=== PATIENT | male | born 1975 | race Caucasian/White ===

== ENCOUNTER 2019-10-04 20:14 | Inpatient (IN) | payer MEDICARE, MEDICAID, SELFPAY ==
[2019-10-04] VITALS (10 sets, daily range): BP systolic 108–134; BP diastolic 73–84; PULSE 88–115; RESP 8–20; TEMP 36.1–36.8; O2SAT 97–100; BMI 22.1; BMI 23.8; BMI 23.9
--- NOTE | 2019-10-04 20:32 | EKG12_ITS ---
Test Reason : SOB Blood Pressure : / mmHG Vent. Rate : 103 BPM Atrial Rate : 103 BPM P-R Int : 142 ms QRS Dur : 078 ms QT Int : 346 ms P-R-T Axes : 064 -10 041 degrees QTc Int : 453 ms Sinus tachycardia Septal infarct , age undetermined Abnormal ECG Confirmed by KATARINA GUY, LIZETTE ([id number]), film or videotape editor TONYA PRCIE ([id number]) on 10/10/2019 11:19:16 AM Referred By: ELIEZER Confirmed By:JAMIL BRAY MD
--- NOTE | 2019-10-04 20:35 | RAD_ITS ---
STUDY: X-RAY CHEST REASON FOR EXAM: Male, 44 years old. PT C/O WEAKNESS, RUNNY NOSE, AND COUGH FOR SEVERAL DAYS TECHNIQUE: Frontal view COMPARISON: None. FINDINGS: The lungs are not fully expanded. There is no demonstrated pleural abnormality. Normal size heart. Normal mediastinum and aime. Normal visualized pulmonary arteries. Normal visualized aortic arch and descending thoracic aorta. Normal visualized thoracic spine. Normal visualized ribs, clavicles, and shoulders. There is no demonstrated abnormality of the visualized soft tissue structures of the upper abdomen. RAD/Chest 1 View (Portable) IMPRESSION: Normal x-ray examination of the chest. Electronically Signed: Brent Garcia DO at 20:54 EDT Tel [phone], Service support ,
--- NOTE | 2019-10-04 20:41 | ED.RN ---
NO OLD EKGS IN MUSE
[2019-10-04] MEDS: 0.9% Normal Saline 1,000 ML 999 ML IV ×2 (21:06→22:27)
[2019-10-04 21:32] LABS: ALB/GLOB Ratio 0.9 RATIO (0.9-2.4); AST(SGOT) 46 U/L (15-37); Absolute Neutrophil Count 6.8 X10^3/uL (2.0-7.7); Alanine Aminotransfer ALT/SGPT 102 U/L (16-61); Alkaline Phosphatase 127 U/L (45-117); Anion Gap 21 (5-15); BUN 19 mg/dL (7-18); BUN/Creat Ratio 18.1 RATIO (10-20); Basophil# 0.14 X10^3/uL; Basophil% 1.2 % (0-1); Calcium,Total 9.7 mg/dL (8.5-10.1); Chloride 91 mmol/L (98-107); Creatinine, Serum 1.05 mg/dL (0.70-1.30); EST Glomerular Filtration Rate 81 mL/min (>60); Eosinophil# 0.19 X10^3/uL; Eosinophils% 1.7 % (0-5); Est Glom Filt Rate - Afr Amer 98 mL/min (>60); Globulin 4.5 g/dL (2.2-4.2); Glucose 412 mg/dL (74-106); Hematocrit 45.5 % (40-54); Hemoglobin 14.5 g/dL (13.0-16.5); Lymphocyte % 30.2 % (19-41); Mean Corp Hgb Conc 31.9 g/dL (32-36); Mean Corpuscular Hgb 25.3 pg (27.0-32.0); Mean Corpuscular Volume 79.5 fL (80-94); Mean Platelet Vol. 11.6 fl (6.2-12.0); Monocyte# 0.68 X10^3/uL; NRBC Flagged by Analyzer 0 % (0-5); Neutrophil # 6.81 X10^3/uL (2.7-7.7); Neutrophil % 60.6 % (47-70); Platelet Count 250 K/mm3 (150-450); Protein, Total 8.5 g/dL (6.4-8.2); RBC Distribution Width CV 17.7 % (11.6-14.6); RBC Distribution Width SD 47.8 fl (35.1-43.9); Red Blood Count 5.72 M/mm3 (4.6-6.2); Sodium Level 129 mmol/L (136-145); White Blood Count 11.3 K/mm3 (4.4-11.0)
[2019-10-04 21:35] LABS: Partial Thromboplast Time 28.3 Seconds (24.1-36.2); Prothrombin Time (Protime)PT. 13.4 SECONDS (11.7-14.9)
[2019-10-04 21:38] LABS: Lactic Acid 1.4 mmol/L (0.4-1.9)
--- NOTE | 2019-10-04 22:05 | HP.PCM_ITS ---
Problem List (1) DKA (diabetic ketoacidoses) Status: Acute History of Present Illness Date of Admission: 10/04/19 Chief Complaint: weakness The patient is a 44 year old M with a significant history of DM; who presents with weakness. Also patient has runny nose; nonproductive cough and shortness of breath. He thinks that his shortness of breath is because of this DKA. He was discharged from the senior living on September 14, 2019. Further he has mult iple social complaints. Reportedly he left the senior living because he was going to be evicted soon because of financial issues. He reported that because of some social issues he has not received his left leg prosthesis. He reported that he is unable to eat because he is lacking his dentures. He reports phantom pain in his left leg and neuropathic pain. After he left the senior living he went to live with a friend. He has not been able to take his short acting insulin. In regard to his long acting insulin, he reportedly he got the wrong syringe range from the pharmacy and as such he is unsure whether he is able to get the dose required. At emergency department patient was found to have elevated ketones; hyperglycemia and anion gap metabolic acidosis. Past Medical History Medical History: Medical History (Last Reviewed 10/04/19 @ 23:[address] Spencer Harman MD) Diabetes mellitus E11.9 Allergies No Known Allergies Allergy (Verified 10/04/19 20:15) Home Medications: Ambulatory Orders Medication Instructions Recorded Insulin NPH Human Isophane 20 unit SQ BID 10/04/19 [Novolin N] Lisinopril [Zestril] 10 mg PO DAILY 10/04/19 Pantoprazole Sodium [Protonix] 20 mg PO DAILY 10/04/19 Surgical History: - - Left below the knee amputation Lives: Roommate Smoking Status: Current every day smoker Tobacco Use: Cigarettes - *Family History Maternal History Items: Diabetes, Heart Disease, Pulmonary Disease Paternal History Items: Cancer - Pancreatic Review of Systems Constitutional: Denies: Chills, Fever, Weight Change HEENT: Reports: Sinus Drainage. Denies: Head Aches, Sinus Congestion Cardiovascular: Denies: Chest Pain, Palpitations Respiratory: Reports: Cough. Denies: Shortness of breath at rest, Sputum production Gastrointestinal: Denies: Abdominal Pain, Nausea, Vomiting Genitourinary: Denies: Dysuria Musculoskeletal: Denies: Joint Pain, Joint Tenderness Skin: Denies: Rash, Wounds Neurological: Reports: Tingling. Denies: Focal weakness, Numbness Psychiatric: Denies: Anxiety, Depression, Homicidal Ideations, Suicidal Ideations Hematologic/ Lymphatic: Denies: Easy Bruising, Easy Bleeding VTE Information - Inpt Only VTE Present on Admission: No VTE Mechan Device Prophylaxis: None VTE Pharm Prophylaxis ordered?: Yes Patient Problems: Active and Suspected Problems (Last Reviewed 10/04/19 @ 23:[address] Spencer Harman MD) DKA (diabetic ketoacidoses) (Acute) - Physical Exam Vitals/I&O's: Vital Signs Temp Pulse Resp BP Pulse Ox 97.5 F L 91 19 H 121/77 H 100 10/04/19 21:20 10/04/19 21:20 10/04/19 21:20 10/04/19 21:20 10/04/19 21:21 Oxygen Delivery Method Room Air Weight: 68.039 kg Body Mass Index (BMI) 22.1 General: Alert, Oriented x3, Cooperative HEENT: Atraumatic, PERRLA, EOMI, Normocephalic Neck: Supple, No JVD, Negative Carotid Bruits Lungs: Clear to auscultation, Normal air movement Cardiovascular: Regular rate, No murmurs Abdomen: Bowel Sounds Present, Soft, Non Tender Extremities: No edema, Capillary Refill Less than 3 Seconds, - - Left below the knee amputation. Deformity of right leg Skin: No rashes, No breakdown Musculoskeletal: No Tenderness to Palpation of Joints or Extremities Neurological: Cranial nerves II-XII grossly intact Psych/Mental Status: Normal Affect, Appropriate Microbiology Past 72 Hours 10/04/19 20:50 Mucosa - Nasopharyngeal Influenza Types A,B Direct FA (LONNY) - Final Laboratory Results 10/04/19 21:00: WBC 11.3 H, RBC 5.72, Hgb 14.5, Hct 45.5, MCV 79.5 L, MCH 25.3 L , MCHC 31.9 L, RDW Std Deviation 47.8 H, RDW Coeff of Candace 17.7 H, Plt Count 250, MPV 11.6, Immature Gran % (Auto) 0.300, Neut % (Auto) 60.6, Lymph % (Auto) 30.2, [place] % (Auto) 6.0, Eos % (Auto) 1.7, Baso % (Auto) 1.2 H, Absolute Neuts (auto) 6.8, Absolute Lymphs (auto) 3.40, Nucleated RBC % 0 10/04/19 21:00: PT 13.4, INR 1.0, APTT 28.3 10/04/19 21:00: Sodium 129 L, Potassium 5.0, Chloride 91 L, Carbon Dioxide 17.0 L, Anion Gap 21 H, BUN 19 H, Creatinine 1.05, Estim Creat Clear Calc 85.50, Est GFR (MDRD) Af Amer 98, Est GFR (MDRD) Non-Af 81, BUN/Creatinine Ratio 18.1, Glucose 412 H, Calcium 9.7, Total Bilirubin 0.40, AST 46 H, ALT 102 H, Alkaline Phosphatase 127 H, Troponin I < 0.015, Total Protein 8.5 H, Albumin 4.0, Globulin 4.5 H, Albumin/Globulin Ratio 0.9 10/04/19 21:00: Acetone Level SMALL H 10/04/19 21:00: Lactic Acid 1.4 Current Medications Insulin Human Lispro 100 unit/ (Sodium Chloride) 100 mls @ 6.804 mls/hr IV .[id number] PEPITO; Protocol Sodium Chloride () 1,000 mls @ 999 mls/hr IV .Q1H1M ONE Stop: 10/04/19 22:59 Assessment/Plan All Active Problems (Last Reviewed 10/04/19 @ 23:[address] Spencer Harman MD) DKA (diabetic ketoacidoses) (Acute) The patient is a 44 year old M with a significant history of DM; who presents with weakness; upper respiratory infection symptoms and was found to be in DKA; and also with many social complaints consistent with adult failure to thrive. DKA His DKA could be secondary to insufficient insulin to meet his metabolic demands;, stress, or other. Serum glucose of 412. acetone level: Small Anion gap of 21 Sodium 129 on presentation, . Corrected sodium 134 Insulin drip started from emergency department; continue Completed IV bolus of normal saline and normal saline infusion Because of potassium 5.0 of we will start patient on-normal saline with 20 mEq of potassium. BMP every 4 hours to calculate anion gap. N.p.o. for now Admitted to ICU A1c ordered Zofran as needed. Technical Solutions Director consult. Upper URI symptoms Patient has no fever. Chest x-ray is unremarkable. Rapid influenza screen at the emergency department was negative. Flonase ordered. Per patient his cough is not bothersome to him so no cough suppressant to be ordered at this time. Adult failure to thrive Case management consult for possible placement; and to help with other social issues.. DVT prophylaxis Lovenox ordered. Inpatient E&M: 95282 Init Hosp L3
[2019-10-04 22:07] LABS: Bacteria 0 SEEN /hpf (None Seen); Mucous, Urine 0 SEEN /hpf (<or=2+); Red Blood Cells-Urine 0 SEEN /hpf (0-5); Squamous Epithelial Cells - UA 0 SEEN /hpf (0-5); White Blood Cells 0 SEEN /hpf (0-5)
--- NOTE | 2019-10-04 22:07 | ED.DCSUM_ITS ---
- ER Visit Summary Date of Service: 10/04/19 Chief Complaint: Weakness History of Present Illness: The patient is a 44 M with history of diabetes, gastroparesis, neuropathy, and Charcot foot. He had an amputation of his left leg and was recently discharged from rehab earlier this month. He has not been doing well at home. He presents for generalized weakness. He also has a cough, shortness of breath, and runny nose. Denies any fevers, travel, or contact with anyone with coronavirus. Patient is here because he is concerned he may be in DKA. He received the wrong supplies from the pharmacy and has been unable to check his blood sugars. He thinks he will need to be placed back in a care home. Physical Examination: Afebrile and vital signs unremarkable except for heart rate of 115. Patient in no acute distress. Heart tachycardic. No respiratory distress. Skin appears normal. He has a left leg amputation. Test Results: EKG shows sinus rhythm at a rate of 103. Chest x-ray normal. White count 11.3. Sodium 129, CO2 17, anion gap 21, glucose 412, BUN 19, small ketones. Lactate normal. Troponin normal. Liver enzymes slightly elevated. Urinalysis pending. Influenza test negative. Respiratory panel pending. Blood cultures pending. Emergency Department Course and Treatment: Patient presents with upper respiratory symptoms and recent care home stay. He is not having fevers and does not have any other risk factors for coronavirus, however contact and droplet precautions were maintained. Respiratory panel is pending. Labs indicated DKA. He was started on insulin. He also received IV fluids. Patient has no evidence of sepsis. It sounds like his DKA is secondary to nonadherence with his treatment regimen. He is having difficulties at home. He can barely walk. He relies on his neighbor to help him. I believe he may also need placement in a nursing or rehab facility. I contacted the hospitalist for admission for DKA. Treatment Plan: As above Disposition: Admission Impression: DKA URI This note was generated with [employer] dictation software. It may contain incorrect words, spelling, and punctuation that were not noted in review of the chart prior to signing ED Disposition - Plan for ED Patient: Referrals: Shayna Winkler [Primary Care Provider] -
[2019-10-04 22:09] LABS: Color, Urine Yellow (Yellow); Glucose, Dipstick 1000 mg/dl (Normal); Leukocyte Esterase-Dipstick Negative /ul (Negative); Nitrite-Dipstick Negative (Negative); Occult Blood-Urine Negative /ul (Negative); Protein-Dipstick Negative (Negative); Urine Bilirubin Dipstick Negative (Negative); Urine Clarity Sl. Cloudy (Clear); Urine Urobilinogen Normal (Normal)
[2019-10-04 22:27] LABS: Ketone-Dipstick 150 mg/dl (Negative)
[2019-10-04 23:31] LABS: Bedside Glucose 317 mg/dL (70-110)
[2019-10-05] VITALS (23 sets, daily range): BP systolic 94–152; BP diastolic 61–98; PULSE 73–104; RESP 12–25; TEMP 36.2–37.4; O2SAT 95–100
[2019-10-05 00:01] LABS: Bedside Glucose 269 mg/dL (70-110)
[2019-10-05 00:30] LABS: Bedside Glucose 230 mg/dL (70-110)
[2019-10-05] MEDS: Acetaminophen 325 MG Tablet 650 MG PO (00:57)
[2019-10-05 01:40] LABS: Anion Gap 9 (5-15); BUN 18 mg/dL (7-18); BUN/Creat Ratio 20.7 RATIO (10-20); Calcium,Total 8.5 mg/dL (8.5-10.1); Chloride 102 mmol/L (98-107); Creatinine, Serum 0.87 mg/dL (0.70-1.30); EST Glomerular Filtration Rate 101 mL/min (>60); Est Glom Filt Rate - Afr Amer 122 mL/min (>60); Estimated Creatinine Clearance 107.22 ml/min; Glucose 171 mg/dL (74-106); Potassium 3.7 mmol/L (3.5-5.1); Sodium Level 137 mmol/L (136-145)
[2019-10-05 02:41] LABS: Bedside Glucose 110 mg/dL (70-110)
[2019-10-05] MEDS: Fleet Enema 1 ML RECTAL (03:20)
[2019-10-05 05:20] LABS: Absolute Lymphocyte Count 2.38 X10^3/uL (0.83-4.51); Absolute Neutrophil Count 3.8 X10^3/uL (2.0-7.7); Basophil# 0.08 X10^3/uL; Basophil% 1.1 % (0-1); Eosinophil# 0.23 X10^3/uL; Eosinophils% 3.2 % (0-5); Hematocrit 38.4 % (40-54); Hemoglobin 12.5 g/dL (13.0-16.5); Lymphocyte # 2.38 X10^3/ul (4.0); Lymphocyte % 32.9 % (19-41); Mean Corp Hgb Conc 32.6 g/dL (32-36); Mean Corpuscular Hgb 25.2 pg (27.0-32.0); Mean Corpuscular Volume 77.4 fL (80-94); Mean Platelet Vol. 11.1 fl (6.2-12.0); Monocyte% 9.7 % (0-10); NRBC Flagged by Analyzer 0 % (0-5); Neutrophil # 3.82 X10^3/uL (2.7-7.7); Neutrophil % 52.8 % (47-70); Platelet Count 237 K/mm3 (150-450); RBC Distribution Width CV 16.7 % (11.6-14.6); Red Blood Count 4.96 M/mm3 (4.6-6.2); White Blood Count 7.2 K/mm3 (4.4-11.0)
[2019-10-05 05:28] LABS: Anion Gap 7 (5-15); BUN 18 mg/dL (7-18); BUN/Creat Ratio 23.7 RATIO (10-20); Calcium,Total 8.3 mg/dL (8.5-10.1); Chloride 100 mmol/L (98-107); Creatinine, Serum 0.76 mg/dL (0.70-1.30); EST Glomerular Filtration Rate 118 mL/min (>60); Est Glom Filt Rate - Afr Amer 142 mL/min (>60); Estimated Creatinine Clearance 122.74 ml/min; Glucose 265 mg/dL (74-106); Potassium 4.4 mmol/L (3.5-5.1); Sodium Level 131 mmol/L (136-145)
[2019-10-05 06:45] LABS: Bedside Glucose 283 mg/dL (70-110)
[2019-10-05 07:50] LABS: Hemoglobin A1c 12.3 % (4.2-6.3)
--- NOTE | 2019-10-05 08:03 | PCM.PN.HOSP ---
Patient Problems: Active and Suspected Problems (Last Reviewed 10/04/19 @ 23:[address] Spencer Harman MD) DKA (diabetic ketoacidoses) (Acute) Reason for Visit: Follow-up on acute DKA Subjective: Patient was seen and examined. He denied any new complaints except for burning sensation in the fingertips as well as back pain. Denies any fever or chills or dizziness or palpitation. Objective: Physical exam: General: Alert, Oriented x3, Cooperative HEENT: Atraumatic, PERRLA, EOMI, Normocephalic Neck: Supple, No JVD, Negative Carotid Bruits Lungs: Clear to auscultation, Normal air movement Cardiovascular: Regular rate, No murmurs Abdomen: Bowel Sounds Present, Soft, Non Tender Extremities: No edema, Capillary Refill Less than 3 Seconds, - - Left below the knee amputation. Deformity of right leg Skin: No rashes, No breakdown Musculoskeletal: No Tenderness to Palpation of Joints or Extremities Neurological: Cranial nerves II-XII grossly intact Psych/Mental Status: Normal Affect, Appropriate Vitals/I&O's: Vital Signs Temp Pulse Resp BP Pulse Ox 98.5 F 73 20 H 112/71 98 10/05/19 05:00 10/05/19 07:43 10/05/19 06:00 10/05/19 06:00 10/05/19 06:00 Oxygen Delivery Method Room Air Weight: 73.6 kg Body Mass Index (BMI) 23.8 Finger Stick Blood Glucose 110 Intake and Output for Last 24 Hours 10/03/19 10/04/19 10/05/19 23:59 23:59 23:59 Intake Total 1007.59 / 1007.59 1501.25 / 1501.25 Balance 1007.59 / 1007.59 1501.25 / 1501.25 Microbiology Past 72 Hours 10/04/19 20:50 Mucosa - Nasopharyngeal Influenza Types A,B Direct FA (LONNY) - Final Laboratory Results 10/04/19 21:00: WBC 11.3 H, RBC 5.72, Hgb 14.5, Hct 45.5, MCV 79.5 L, MCH 25.3 L, MCHC 31.9 L, RDW Std Deviation 47.8 H, RDW Coeff of Candace 17.7 H, Plt Count 250, MPV 11.6, Immature Gran % (Auto) 0.300, Neut % (Auto) 60.6, Lymph % (Auto) 30.2, [place] % (Auto) 6.0, Eos % (Auto) 1.7, Baso % (Auto) 1.2 H, Absolute Neuts (auto) 6.8, Absolute Lymphs (auto) 3.40, Nucleated RBC % 0 10/04/19 21:00: PT 13.4, INR 1.0, APTT 28.3 10/04/19 21:00: Sodium 129 L, Potassium 5.0, Chloride 91 L, Carbon Dioxide 17.0 L, Anion Gap 21 H, BUN 19 H, Creatinine 1.05, Estim Creat Clear Calc 85.50, Est GFR (MDRD) Af Amer 98, Est GFR (MDRD) Non-Af 81, BUN/Creatinine Ratio 18.1, Glucose 412 H, Calcium 9.7, Total Bilirubin 0.40, AST 46 H, ALT 102 H, Alkaline Phosphatase 127 H, Troponin I < 0.015, Total Protein 8.5 H, Albumin 4.0, Globulin 4.5 H, Albumin/Globulin Ratio 0.9 10/04/19 21:00: Acetone Level SMALL H 10/04/19 21:00: Lactic Acid 1.4 10/04/19 22:00: Urine Color Yellow, Urine Clarity Sl. Cloudy, Urine pH 5.0, Ur Specific [place] 1.020, Urine Protein Negative, Urine Glucose (UA) 1000 H, Urine Ketones 150 H, Urine Occult Blood Negative, Urine Nitrite Negative, Urine Bilirubin Negative, Urine Urobilinogen Normal, Ur Leukocyte Esterase Negative, Urine RBC 0 SEEN, Urine WBC 0 SEEN, Ur Squamous Epith Cells 0 SEEN, Urine Bacteria 0 SEEN, Urine Mucus 0 SEEN 10/04/19 22:19: POC Glucose 317 H 10/04/19 23:28: POC Glucose 269 H 10/05/19 00:26: POC Glucose 230 H 10/05/19 01:00: Sodium 137, Potassium 3.7, Chloride 102, Carbon Dioxide 26.0, Anion Gap 9, BUN 18, Creatinine 0.87, Estim Creat Clear Calc 107.22, Est GFR (MDRD) Af Amer 122, Est GFR (MDRD) Non-Af 101, BUN/Creatinine Ratio 20.7 H, Glucose 171 H, Calcium 8.5 10/05/19 02:30: POC Glucose 110 10/05/19 05:05: WBC 7.2, RBC 4.96, Hgb 12.5 L, Hct 38.4 L, MCV 77.4 L, MCH 25.2 L, MCHC 32.6, RDW Std Deviation 47.0 H, RDW Coeff of Candace 16.7 H, Plt Count 237, MPV 11.1, Immature Gran % (Auto) 0.300, Neut % (Auto) 52.8, Lymph % (Auto) 32.9, [place] % (Auto) 9.7, Eos % (Auto) 3.2, Baso % (Auto) 1.1 H, Absolute Neuts (auto) 3.8, Absolute Lymphs (auto) 2.38, Nucleated RBC % 0 10/05/19 05:05: Hemoglobin A1c 12.3 H 10/05/19 05:05: Sodium 131 L, Potassium 4.4, Chloride 100, Carbon Dioxide 24.0, Anion Gap 7, BUN 18, Creatinine 0.76, Estim Creat Clear Calc 122.74, Est GFR (MDRD) Af Amer 142, Est GFR (MDRD) Non-Af 118, BUN/Creatinine Ratio 23.7 H, Glucose 265 H, Calcium 8.3 L 10/05/19 06:35: POC Glucose 283 H Current Medications Acetaminophen (Tylenol) 650 mg PO Q6H PRN PRN PRN Reason: Pain Score 1-10/10 Last Admin: 10/05/19 00:57 Dose: 650 mg Documented by: Enoxaparin Sodium (Lovenox) 40 mg SC DAILY [facility] Fluticasone Propionate (Flonase Nasal Sprague) 2 spray NASAL DAILY [facility] Glucagon () 1 mg IM .X1 PRN PRN Reason: Hypoglycemia Hydralazine HCl (Apresoline Iv) 5 mg IV Q4H PRN PRN PRN Reason: SBP > 160 or DBP > 120 Pantoprazole Sodium 40 mg/ (Sodium Chloride) 110 mls @ 330 mls/hr IV Q24 PEPITO Dextrose (Dextrose 10%-Water) 250 mls @ 999 mls/hr IV .Q16M PRN; Protocol PRN Reason: HYPOGLYCEMIA Sodium Chloride () 250 mls @ 15 mls/hr IV .[id number] PRN PRN Reason: Saline Flush Sodium Chloride () 250 mls @ 15 mls/hr IV .[id number] PRN PRN Reason: Additional IVPB Infusion Insulin Glargine (Lantus (Bkc)) 10 units SC BID PEPITO Insulin Human Lispro (Humalog Kwikpen (Bkc)) 0 unit SC ACHS PEPITO; Protocol Insulin Human Lispro (Humalog Kwikpen (Bkc)) 4 unit SC TIDAC EPPITO Ondansetron HCl (Zofran) 4 mg IV Q8H PRN PRN PRN Reason: NAUSEA/VOMITING Sodium Chloride () 10 - 40 ml IV UD PRN PRN Reason: SALINE FLUSH STROKE Vital Signs/Narrative: Vital Signs Temp Pulse Resp BP Pulse Ox 10/05/19 07:43 73 10/05/19 06:00 75 20 H 112/71 98 10/05/19 05:00 98.5 F 89 22 H 94/70 95 Medical Necessity - Tobacco Use Smoking Status: Current every day smoker Tobacco Use: Cigarettes Assessment/Plan All Active Problems (Last Reviewed 10/04/19 @ 23:[address] Spencer Harman MD) DKA (diabetic ketoacidoses) (Acute) 1. Acute DKA, resolved BS are uncontrolled, Hgb A1c 12.3, restarted on Lantus; will switch to NPH as patient had that at home Will continue with premeal Lispro 4units TID with the ISS 2. Upper respiratory symptoms, unremarkable chest x-ray chest x-ray, not on oxygen We will continue to monitor 3. Debility, lots of social issues Case management consulted 4. Hypertension, controlled, continue lisinopril 5. DVT prophylaxis with Lovenox subcu Inpatient E&M: [id number] Subs Hosp L2
[2019-10-05 08:42] LABS: AST(SGOT) 40 U/L (15-37); Alanine Aminotransfer ALT/SGPT 76 U/L (16-61); Alkaline Phosphatase 91 U/L (45-117); Globulin 3.3 g/dL (2.2-4.2); Protein, Total 6.3 g/dL (6.4-8.2)
[2019-10-05] MEDS: Insulin Lispro 100 UNIT/ML INSULN.PEN SC ×7 (09:21→21:04)
[2019-10-05] MEDS: Fluticasone 0.05% 1 SPRAY NASAL.SRY 2 SPRAY NASAL (09:21)
[2019-10-05] MEDS: Enoxaparin 40 MG/0.4 ML Syringe SC (09:23)
[2019-10-05] MEDS: 0.9% Saline Lock 10 ML Syringe IV (09:49)
--- NOTE | 2019-10-05 11:50 | CASEMGMT ---
SW spoke w/pt at length in room in regard to prior level of function and discharge plan. SW provided list of nursing homes with star ratings that pt's insurance. At this time, pt would like referral sent to 1. [facility], 2. [facility], or 3. [facility]. Pt would like to go to SNF that allows smoking. SW called [facility], they do allow smoking, [facility] does not, and [facility] does. SW spoke w/pt again, he would like a referral sent to [facility]. SW will send referral after PT/OT evaluations completed. NOAH Pope
--- NOTE | 2019-10-05 13:07 | CASEMGMT ---
Addendum entered by Hannah Cisneros 10/05/19 14:22: SW called [facility], referral did not come through. SW refaxed, will continue to follow. NOAH Pope Original Note: SW met w/pt in room in regard to prior level of function, discharge plan. PCP: Dr. Shayna Winkler Specialists: Dr. Burkett, endocrinology in [place], Dr. Byrnes, orthopedic surgeon at [facility] Insurance/Prescription coverage: [facility] Medicare, Medicaid Preferred Pharmacy: In the past had been [facility] in [place]: Father, Aunt, children ages 17 and 14, brother Current living situation: Pt staying w/friend Yoana, has a bed set up in his dining room LW/POA: Pt has not completed these documents, is not certain who he would put down at this time. SW asked if he would like SW to add anyone to demographics, he declined. SW explained the order of decision makers in the event he could not make decisions for himself. Pt states his son will be 18 in October and is okay with son being decision maker should it be needed. Pt is . Prior level of function/DME/SNF/home care: Pt has been staying w/friend since left [facility] [place] last month. Pt states the [facility] gave him a used walker and wheelchair, one of the wheels on the wheelchair is broken. He thinks these were given to him and not billed to insurance. Pt has a meter and strips, but has the incorrect strips. Pt has his insulin but has the wrong needles. Pt is to be getting a prosthesis from [employer] for his Below Knee Amputation, however there has been much confusion regarding whether or not insurance will cover this, he has been in touch with [employer] in regard to this. Friend is willing to take pt in again, however pt feels that he needs to be moving better. Eventually pt would like to find his own apartment. Mental Health: Pt states in the past has been suicidal, but not any time recently. Pt denies wanting to harm himself, kill himself. Pt denies having any active plan or idea on how he would commit suicide. Pt does feel down and is having a difficult time with all that has happened over the last few months. Pt does see a counselor at [facility] named Emily who he feels is very helpful. 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 Pt states has not used in years. Pt state she does use marijuana to help w/pain, and smokes cigarettes. Pt states was on Suboxone when at the [facility] for pain, but this required him to go to classes twice per week and he did not want to do this, so stopped using Suboxone. Other Stressors: Pt states his aunt and father kicked him out when he had his leg amputated, he had been living in a duplex in the basement of his father's place, and his aunt was next door. He went to [facility] and said he was evicted from there. He was to go to [facility] after that but instead his friend Yoana took him in. Pt states he got a bill from the [facility] also and does not understand why. SW offered to call the [facility] to get a better understanding for him, pt declined, stating his hotel maintenance engineer will do it. Pt explains is hiring a hotel maintenance engineer to help him look into where and how he got the infection in the first place(related to the leg amputation). Pt is having a tough time managing for himself and his friend, while helpful, is limited in what he can do for pt. Pt also explained that he has been having a tough time getting his prostheses authorized. He went to his computer systems auditor this week and did not get all the correct supplies to manage his diabetes. Also, his wheelchair wheel is broken. Pt expressed frustration with much of his current situation. Supportive listening given. SW spoke w/pt about discharge plan, SNF list with star ratings that take pt's insurance provided. Pt would like to go where he can smoke, first three choices are 1. [facility], 2. [facility], and 3. [facility]. SW explained will call and see who allows smoking and check back w/him. SW called the 3 facilities, [facility] and [facility] allow smoking. BASILIO spoke again w/pt, he would like a referral sent to [facility]. SW faxed referral, will await call back. Plan: SNF, referral sent to [facility], will await call back. If [facility] can take pt, they will start precert. BASILIO will continue to follow. NOAH Pope
--- NOTE | 2019-10-05 14:51 | CHAPLAIN ---
Type of Pastoral Visit _x__ Initial Visit ___ Follow-up Visit ___ On-call Visit ___ General Patient Visit ___ Spiritual Assessment ___ Family Conference ___ Bereavement ___ Rapid Response ___ Code Blue ___ Other (describe below) Pastoral Care Referral From _x__ Patient ___ Family ___ Nurse ___ Physician ___ Sap Mobility Architect ___ Cigar Making Machine Operator ___ Other (describe below) Sacrament/Intervention _x__ Active listening ___ Anointing ___ Hoahaoism ___ Bereavement ___ Communion _x__ Leatha exploration ___ _x__ Life review _x__ Prayer ___ Reconciliation ___ Sacrament of Sick _x__ Supportive presence ___ Wedding ___ Other (describe below) Pastoral Comments
[2019-10-05 16:40] LABS: Bedside Glucose 375 mg/dL (70-110)
[2019-10-05] MEDS: Gabapentin 300 MG Capsule PO (17:13)
[2019-10-05] MEDS: Insulin NPH Human 100 UNITS/ML PEN 20 UNITS SC (17:40)
[2019-10-05] MEDS: Polyethylene Glycol 3350 17 GM PACKET PO (18:07)
[2019-10-05 21:26] LABS: Bedside Glucose 345 mg/dL (70-110)
[2019-10-05 21:35] LABS: Bedside Glucose 306 mg/dL (70-110)
[2019-10-06 03:00] VITALS: BP 109/67; PULSE 70; RESP 18; TEMP 36.6; O2SAT 99
[2019-10-06 03:07] VITALS: PULSE 75
[2019-10-06 07:00] VITALS: PULSE 83
[2019-10-06 07:01] LABS: Bedside Glucose 294 mg/dL (70-110)
[2019-10-06 07:17] LABS: Absolute Neutrophil Count 3.1 X10^3/uL (2.0-7.7); Basophil# 0.07 X10^3/uL; Basophil% 1.2 % (0-1); Eosinophil# 0.18 X10^3/uL; Hematocrit 42.4 % (40-54); Hemoglobin 13.8 g/dL (13.0-16.5); Lymphocyte % 35.4 % (19-41); Mean Corp Hgb Conc 32.5 g/dL (32-36); Mean Corpuscular Hgb 25.4 pg (27.0-32.0); Mean Corpuscular Volume 78.1 fL (80-94); Mean Platelet Vol. 10.3 fl (6.2-12.0); Monocyte# 0.48 X10^3/uL; Monocyte% 8.1 % (0-10); NRBC Flagged by Analyzer 0 % (0-5); Neutrophil # 3.08 X10^3/uL (2.7-7.7); Platelet Count 228 K/mm3 (150-450); RBC Distribution Width CV 17.8 % (11.6-14.6); RBC Distribution Width SD 47.1 fl (35.1-43.9); Red Blood Count 5.43 M/mm3 (4.6-6.2); White Blood Count 5.9 K/mm3 (4.4-11.0)
[2019-10-06 07:35] LABS: ALB/GLOB Ratio 0.8 RATIO (0.9-2.4); AST(SGOT) 55 U/L (15-37); Alanine Aminotransfer ALT/SGPT 86 U/L (16-61); Albumin, Serum 3.2 g/dL (3.2-5.0); Alkaline Phosphatase 97 U/L (45-117); Anion Gap 3 (5-15); BUN 13 mg/dL (7-18); BUN/Creat Ratio 17.5 RATIO (10-20); Calcium,Total 8.7 mg/dL (8.5-10.1); Chloride 100 mmol/L (98-107); Creatinine, Serum 0.74 mg/dL (0.70-1.30); EST Glomerular Filtration Rate 121 mL/min (>60); Est Glom Filt Rate - Afr Amer 146 mL/min (>60); Estimated Creatinine Clearance 126.06 ml/min; Globulin 3.9 g/dL (2.2-4.2); Glucose 299 mg/dL (74-106); Potassium 4.5 mmol/L (3.5-5.1); Protein, Total 7.1 g/dL (6.4-8.2); Sodium Level 131 mmol/L (136-145)
[2019-10-06] MEDS: Insulin Lispro 100 UNIT/ML INSULN.PEN SC ×7 (08:21→22:51)
[2019-10-06] MEDS: Insulin NPH Human 100 UNITS/ML PEN 20 UNITS SC (08:22)
[2019-10-06 08:28] VITALS: BP 116/82; PULSE 96; RESP 16; TEMP 37; O2SAT 98
[2019-10-06] MEDS: Polyethylene Glycol 3350 17 GM PACKET PO (08:35)
[2019-10-06] MEDS: Enoxaparin 40 MG/0.4 ML Syringe SC (08:36)
[2019-10-06] MEDS: Fluticasone 0.05% 1 SPRAY NASAL.SRY 2 SPRAY NASAL (08:36)
[2019-10-06] MEDS: Lisinopril 10 MG Tablet PO (08:36)
[2019-10-06] MEDS: Pantoprazole Sodium 20 MG Tablet PO (08:36)
[2019-10-06] MEDS: Gabapentin 300 MG Capsule PO ×2 (08:36→17:03)
[2019-10-06] MEDS: Glucerna Shake 120 ML LIQUID PO ×2 (08:37→11:51)
[2019-10-06 11:35] LABS: Bedside Glucose 491 mg/dL (70-110)
[2019-10-06 12:31] LABS: Bedside Glucose 438 mg/dL (70-110)
--- NOTE | 2019-10-06 13:00 | PN_ITS ---
<Andrew Joshi - Last Filed: 10/06/19 13:05> Patient Problems: Active and Suspected Problems (Last Reviewed 10/04/19 @ 23:[address] Spencer Harman MD) DKA (diabetic ketoacidoses) (Acute) Reason for Visit: DKA, SOB Subjective: Ongoing upper and lower extremity neuropathy, phantom pain left lower extremity. No shortness of breath at all today. No chest pain, lightheadedness, dizziness. Appetite is intact. No nausea or vomiting. Blood sugars are still uncontrolled. Vitals/I&O's: Vital Signs Temp Pulse Resp BP Pulse Ox 98.6 F 96 16 116/82 H 98 10/06/19 08:28 10/06/19 08:28 10/06/19 08:28 10/06/19 08:28 10/06/19 08:28 Oxygen Delivery Method Room Air Weight: 162 lb 4.163 oz Body Mass Index (BMI) 23.8 Finger Stick Blood Glucose 110 Intake and Output for Last 24 Hours 10/04/19 10/05/19 10/06/19 23:59 23:59 23:59 Intake Total 1007.59 / 1007.59 3251.25 / 3851.25 660 / 660 Balance 1007.59 / 1007.59 3251.25 / 3851.25 660 / 660 General: Alert, Oriented x3, Cooperative HEENT: Atraumatic, PERRLA, EOMI, Normocephalic Neck: Supple, No JVD, Negative Carotid Bruits Lungs: Clear to auscultation, Normal air movement Cardiovascular: Regular rate, No murmurs Abdomen: Bowel Sounds Present, Soft, Non Tender Extremities: No edema, Capillary Refill Less than 3 Seconds Skin: No rashes, No breakdown Musculoskeletal: No Tenderness to Palpation of Joints or Extremities Neurological: Cranial nerves II-XII grossly intact Psych/Mental Status: Normal Affect, Appropriate, Alert and oriented to time, place, person, mood and affect Microbiology Past 72 Hours 10/04/19 22:00 Urine, Clean Catch Urine Culture - Preliminary Culture exhibits no growth. 10/04/19 20:50 Mucosa - Nasopharyngeal Influenza Types A,B Direct FA (LONNY) - Final Laboratory Results 10/05/19 12:36: POC Glucose 306 H 10/05/19 16:22: POC Glucose 375 H 10/05/19 20:47: POC Glucose 345 H 10/06/19 06:53: POC Glucose 294 H 10/06/19 07:05: WBC 5.9, RBC 5.43, Hgb 13.8, Hct 42.4, MCV 78.1 L, MCH 25.4 L, MCHC 32.5, RDW Std Deviation 47.1 H, RDW Coeff of Candace 17.8 H, Plt Count 228, MPV 10.3, Immature Gran % (Auto) 0.300, Neut % (Auto) 52.0, Lymph % (Auto) 35.4, [place] % (Auto) 8.1, Eos % (Auto) 3.0, Baso % (Auto) 1.2 H, Absolute Neuts (auto) 3.1, Absolute Lymphs (auto) 2.10, Nucleated RBC % 0 10/06/19 07:05: Sodium 131 L, Potassium 4.5, Chloride 100, Carbon Dioxide 28.0, Anion Gap 3 L, BUN 13, Creatinine 0.74, Estim Creat Clear Calc 126.06, Est GFR (MDRD) Af Amer 146, Est GFR (MDRD) Non-Af 121, BUN/Creatinine Ratio 17.5, Glucose 299 H, Calcium 8.7, Total Bilirubin 0.40, AST 55 H, ALT 86 H, Alkaline Phosphatase 97, Total Protein 7.1, Albumin 3.2, Globulin 3.9, Albumin/Globulin Ratio 0.8 L 10/06/19 11:28: POC Glucose 491 H* 10/06/19 12:26: POC Glucose 438 H Current Medications Acetaminophen (Tylenol) 650 mg PO Q6H PRN PRN PRN Reason: Pain Score 1-10/10 Last Admin: 10/05/19 00:57 Dose: 650 mg Documented by: Enoxaparin Sodium (Lovenox) 40 mg SC DAILY [facility] Last Admin: 10/06/19 08:36 Dose: 40 mg Documented by: Fluticasone Propionate (Flonase Nasal [place]) 2 spray NASAL DAILY [facility] Last Admin: 10/06/19 08:36 Dose: 2 spray Documented by: Gabapentin (Neurontin) 300 mg PO BIDCM [facility] Last Admin: 10/06/19 08:36 Dose: 300 mg Documented by: Glucagon () 1 mg IM .X1 PRN PRN Reason: Hypoglycemia Hydralazine HCl (Apresoline Iv) 5 mg IV Q4H PRN PRN PRN Reason: SBP > 160 or DBP > 120 Dextrose (Dextrose 10%-Water) 250 mls @ 999 mls/hr IV .Q16M PRN; Protocol PRN Reason: HYPOGLYCEMIA Sodium Chloride () 250 mls @ 15 mls/hr IV .[id number] PRN PRN Reason: Saline Flush Sodium Chloride () 250 mls @ 15 mls/hr IV .[id number] PRN PRN Reason: Additional IVPB Infusion Insulin Human Lispro (Humalog Kwikpen (Bk)) 0 unit SC ACHS [facility]; Protocol Last Admin: 10/06/19 12:35 Dose: 11 u Documented by: Insulin Human Lispro (Humalog Kwikpen (Bk)) 8 unit SC TIDAC [facility] Insulin Human NPH (Humulin N ([facility])) 22 units SC BIDAC [facility] Lisinopril (Zestril) 10 mg PO DAILY [facility] Last Admin: 10/06/19 08:36 Dose: 10 mg Documented by: Nutritional Formula (Lactose Free) (Glucerna Shake) 120 ml PO TIDCM [facility] Last Admin: 10/06/19 11:51 Dose: 120 ml Documented by: Ondansetron HCl (Zofran) 4 mg IV Q8H PRN PRN PRN Reason: NAUSEA/VOMITING Pantoprazole Sodium (Protonix) 20 mg PO DAILY [facility] Last Admin: 10/06/19 08:36 Dose: 20 mg Documented by: Polyethylene Glycol (Miralax) 17 gm PO DAILY [facility] Last Admin: 10/06/19 08:35 Dose: 17 gm Documented by: Sodium Chloride () 10 - 40 ml IV UD PRN PRN Reason: SALINE FLUSH Last Admin: 10/05/19 09:49 Dose: 10 ml Documented by: Medical Necessity - Tobacco Use Smoking Status: Current every day smoker Tobacco Use: Cigarettes Assessment/Plan All Active Problems (Last Reviewed 10/04/19 @ 23:[address] Spencer Harman MD) DKA (diabetic ketoacidoses) (Acute) 1. DKA, insulin-dependent diabetes-still poorly controlled, mealtime, sliding scale, and long-acting insulin adjusted today. Shortness of breath resolved. 2. Hyponatremia-likely secondary to hyperglycemia. Will monitor. 3. Ongoing debility-continue PT OT and plan for return to senior living. DVT prophylaxis: Lovenox DC planning: SNF This patient was seen by Andrew Joshi PA-C under the supervision of Doctor Gill. <Shari Gill - Last Filed: 10/07/19 07:32> Vitals/I&O's: Vital Signs Temp Pulse Resp BP Pulse Ox 98.4 F 89 16 109/67 100 10/06/19 14:20 10/06/19 14:20 10/06/19 14:20 10/06/19 14:20 10/06/19 14:20 Oxygen Delivery Method Room Air Weight: 73.6 kg Body Mass Index (BMI) 23.8 Finger Stick Blood Glucose 110 Intake and Output for Last 24 Hours 10/04/19 10/05/19 10/06/19 23:59 23:59 23:59 Intake Total 1007.59 / 1007.59 3251.25 / 3851.25 660 / 660 Output Total Balance 1007.59 / 1007.59 3251.25 / 3851.25 659 / 659 Microbiology Past 72 Hours 10/04/19 22:00 Urine, Clean Catch Urine Culture - Preliminary Culture exhibits no growth. 10/04/19 20:50 Mucosa - Nasopharyngeal Influenza Types A,B Direct FA (LONNY) - Final Laboratory Results 10/05/19 12:36: POC Glucose 306 H 10/05/19 20:47: POC Glucose 345 H 10/06/19 06:53: POC Glucose 294 H 10/06/19 07:05: WBC 5.9, RBC 5.43, Hgb 13.8, Hct 42.4, MCV 78.1 L, MCH 25.4 L, MCHC 32.5, RDW Std Deviation 47.1 H, RDW Coeff of Candace 17.8 H, Plt Count 228, MPV 10.3, Immature Gran % (Auto) 0.300, Neut % (Auto) 52.0, Lymph % (Auto) 35.4, [place] % (Auto) 8.1, Eos % (Auto) 3.0, Baso % (Auto) 1.2 H, Absolute Neuts (auto) 3.1, Absolute Lymphs (auto) 2.10, Nucleated RBC % 0 10/06/19 07:05: Sodium 131 L, Potassium 4.5, Chloride 100, Carbon Dioxide 28.0, Anion Gap 3 L, BUN 13, Creatinine 0.74, Estim Creat Clear Calc 126.06, Est GFR (MDRD) Af Amer 146, Est GFR (MDRD) Non-Af 121, BUN/Creatinine Ratio 17.5, Glucose 299 H, Calcium 8.7, Total Bilirubin 0.40, AST 55 H, ALT 86 H, Alkaline Phosphatase 97, Total Protein 7.1, Albumin 3.2, Globulin 3.9, Albumin/Globulin Ratio 0.8 L 10/06/19 11:28: POC Glucose 491 H* 10/06/19 12:26: POC Glucose 438 H Current Medications Acetaminophen (Tylenol) 650 mg PO Q6H PRN PRN PRN Reason: Pain Score 1-10/10 Last Admin: 10/05/19 00:57 Dose: 650 mg Documented by: Enoxaparin Sodium (Lovenox) 40 mg SC DAILY [facility] Last Admin: 10/06/19 08:36 Dose: 40 mg Documented by: Fluticasone Propionate (Flonase Nasal [place]) 2 spray NASAL DAILY [facility] Last Admin: 10/06/19 08:36 Dose: 2 spray Documented by: Gabapentin (Neurontin) 300 mg PO BIDCM [facility] Last Admin: 10/06/19 17:03 Dose: 300 mg Documented by: Glucagon () 1 mg IM .X1 PRN PRN Reason: Hypoglycemia Hydralazine HCl (Apresoline Iv) 5 mg IV Q4H PRN PRN PRN Reason: SBP > 160 or DBP > 120 Dextrose (Dextrose 10%-Water) 250 mls @ 999 mls/hr IV .Q16M PRN; Protocol PRN Reason: HYPOGLYCEMIA Sodium Chloride () 250 mls @ 15 mls/hr IV .[id number] PRN PRN Reason: Saline Flush Sodium Chloride () 250 mls @ 15 mls/hr IV .[id number] PRN PRN Reason: Additional IVPB Infusion Insulin Human Lispro (Humalog Kwikpen (Bkc)) 0 unit SC ACHS [facility]; Protocol Last Admin: 10/06/19 17:00 Dose: 4 u Documented by: Insulin Human Lispro (Humalog Kwikpen (Bkc)) 8 unit SC TIDAC [facility] Last Admin: 10/06/19 17:00 Dose: 8 units Documented by: Insulin Human NPH (Humulin N (Bkc)) 22 units SC BIDAC [facility] Last Admin: 10/06/19 17:02 Dose: 22 units Documented by: Lisinopril (Zestril) 10 mg PO DAILY [facility] Last Admin: 10/06/19 08:36 Dose: 10 mg Documented by: Nutritional Formula (Lactose Free) (Glucerna Shake) 120 ml PO TIDCM [facility] Last Admin: 10/06/19 17:03 Dose: Not Given Documented by: Ondansetron HCl (Zofran) 4 mg IV Q8H PRN PRN PRN Reason: NAUSEA/VOMITING Pantoprazole Sodium (Protonix) 20 mg PO DAILY [facility] Last Admin: 10/06/19 08:36 Dose: 20 mg Documented by: Polyethylene Glycol (Miralax) 17 gm PO DAILY [facility] Last Admin: 10/06/19 08:35 Dose: 17 gm Documented by: Sodium Chloride () 10 - 40 ml IV UD PRN PRN Reason: SALINE FLUSH Last Admin: 10/05/19 09:49 Dose: 10 ml Documented by: STROKE Vital Signs/Narrative: Vital Signs Temp Pulse Resp BP Pulse Ox 10/06/19 14:20 98.4 F 89 16 109/67 100 Assessment/Plan This patient was seen in conjunction with AMADEO Gibbs. I have independently interviewed and examined the patient and reviewed pertinent historical, laboratory, and other data. Please refer to AMADEO Gibbs note for his patient's presentation, findings, and recommendations. I have reviewed and his note and concur with his documentation Patient was seen and examined. He complains of back pain and phantom pain. Physical Exam: Gen: Comfortable, not pale, not jaundiced CVS:HS I +II, regular, no murmurs RESP: Diminished at lung bases GI: BS present and normal, soft, nontender, no palpable organs EXT:No edema ASSESSMENT: 1. DKA 2. Uncontrolled type II DM 3. Pseudohyponatremia 4. Debility Plan: Continue with aggressive insulin regimen with NPH and pre-meal insulin Waiting on discharge to subacute rehab Inpatient E&M: [id number] [facility] L[facility]
--- NOTE | 2019-10-06 13:55 | CASEMGMT ---
[facility] called [facility] and they can accept patient. They started the pre-cert. BASILIO received a call from [place] a little later and she felt they were going to get the pre-cert and we could send patient today. [facility]IL[facility] let her know patient's blood sugars are still not controlled so he probably won't come today. Mariza BETHEA MSW
[2019-10-06 14:20] VITALS: BP 109/67; PULSE 89; RESP 16; TEMP 36.9; O2SAT 100
--- NOTE | 2019-10-06 14:53 | CHAPLAIN ---
Type of Pastoral Visit ___ Initial Visit _x__ Follow-up Visit ___ On-call Visit ___ General Patient Visit ___ Spiritual Assessment ___ Family Conference ___ Bereavement ___ Rapid Response ___ Code Blue ___ Other (describe below) Pastoral Care Referral From _x__ Patient ___ Family ___ Nurse ___ Physician ___ Technology Resource Teacher ___ Scallop Raker ___ Other (describe below) Sacrament/Intervention _x__ Active listening ___ Anointing ___ Religious ___ Bereavement ___ Communion ___ Leatha exploration ___ _x__ Life review _x__ Prayer ___ Reconciliation ___ Sacrament of Sick _x__ Supportive presence ___ Wedding ___ Other (describe below) Pastoral Comments
[2019-10-06] MEDS: Insulin Lispro 100 UNIT/ML INSULN.PEN 8 UNIT SC (17:00)
[2019-10-06] MEDS: Insulin NPH Human 100 UNITS/ML PEN 22 UNITS SC (17:02)
[2019-10-06 17:40] LABS: Bedside Glucose 217 mg/dL (70-110)
[2019-10-06 20:31] VITALS: BP 106/65; PULSE 88; RESP 16; TEMP 36.8; O2SAT 99
[2019-10-06 22:16] LABS: Bedside Glucose 203 mg/dL (70-110)
[2019-10-06 23:00] LABS: Bedside Glucose 324 mg/dL (70-110)
[2019-10-07 02:47] VITALS: BP 118/78; PULSE 73; RESP 16; TEMP 36.6; O2SAT 100
[2019-10-07 07:16] LABS: Absolute Neutrophil Count 2.2 X10^3/uL (2.0-7.7); Basophil# 0.06 X10^3/uL; Basophil% 1.2 % (0-1); Eosinophil# 0.18 X10^3/uL; Eosinophils% 3.5 % (0-5); Hematocrit 38.2 % (40-54); Hemoglobin 12.5 g/dL (13.0-16.5); Lymphocyte % 42.6 % (19-41); Mean Corp Hgb Conc 32.7 g/dL (32-36); Mean Corpuscular Hgb 25.3 pg (27.0-32.0); Mean Corpuscular Volume 77.3 fL (80-94); Mean Platelet Vol. 10.8 fl (6.2-12.0); Monocyte# 0.48 X10^3/uL; Monocyte% 9.3 % (0-10); NRBC Flagged by Analyzer 0 % (0-5); Neutrophil # 2.24 X10^3/uL (2.7-7.7); Neutrophil % 43.2 % (47-70); Platelet Count 185 K/mm3 (150-450); RBC Distribution Width CV 17.3 % (11.6-14.6); RBC Distribution Width SD 47.7 fl (35.1-43.9); Red Blood Count 4.94 M/mm3 (4.6-6.2); White Blood Count 5.2 K/mm3 (4.4-11.0)
[2019-10-07 08:01] LABS: Anion Gap 5 (5-15); BUN 17 mg/dL (7-18); BUN/Creat Ratio 33.8 RATIO (10-20); Calcium,Total 8.6 mg/dL (8.5-10.1); Chloride 102 mmol/L (98-107); EST Glomerular Filtration Rate 189 mL/min (>60); Est Glom Filt Rate - Afr Amer 229 mL/min (>60); Estimated Creatinine Clearance 186.57 ml/min; Glucose 232 mg/dL (74-106); Potassium 4.1 mmol/L (3.5-5.1); Sodium Level 134 mmol/L (136-145)
[2019-10-07] MEDS: Insulin Lispro 100 UNIT/ML INSULN.PEN SC ×2 (08:17→11:36)
[2019-10-07] MEDS: Insulin Lispro 100 UNIT/ML INSULN.PEN 8 UNIT SC ×2 (08:18→11:38)
[2019-10-07] MEDS: Insulin NPH Human 100 UNITS/ML PEN 22 UNITS SC (08:18)
[2019-10-07] MEDS: Enoxaparin 40 MG/0.4 ML Syringe SC (08:19)
[2019-10-07] MEDS: Fluticasone 0.05% 1 SPRAY NASAL.SRY 2 SPRAY NASAL (08:19)
[2019-10-07] MEDS: Gabapentin 300 MG Capsule PO (08:19)
[2019-10-07] MEDS: Lisinopril 10 MG Tablet PO (08:20)
[2019-10-07] MEDS: Polyethylene Glycol 3350 17 GM PACKET PO (08:20)
[2019-10-07] MEDS: Pantoprazole Sodium 20 MG Tablet PO (08:20)
[2019-10-07 08:27] VITALS: BP 120/76; PULSE 91; RESP 18; TEMP 36.9; O2SAT 95
[2019-10-07 10:11] LABS: Bedside Glucose 323 mg/dL (70-110)
--- NOTE | 2019-10-07 11:17 | PCM.EXTCARCO ---
- Diet 10/05/19 02:49 Diet: Calorie Controlled Food consistency:: Regular Liquid Consistency:: Regular/Thin Is pt able to select menu?: Yes Diet Comments: Patient does not receive oral diet while on insulin infusion How many daily calories?: 1800 calorie - Routine Orders/Code Status Suppository Type: Dulcolax 10mg Suppository Frequency: Daily PRN Routine Lab Work: CBC - 5 days, BMP - 5 days Code Status: Full Code - Wound(s) [facility]KA Wound Type: scab to stump - Therapies Physical Therapy: Eval and Treat Occupational Therapy: Eval and Treat - Allergies/Procedures Done in Hospital Allergies/Adverse Reactions: Allergies No Known Allergies Allergy (Verified 10/04/19 20:15) Procedures: None - Type of Care/Length of Stay Estimated LOS: Convalescent Care Less Than 30 days Type of Care Needed: Skilled Rehab Potential: Fair Prognosis: Fair - Additional Orders/Day of Discharge Additional Orders: Accuchecks ACHS Day of Discharge: 10/07/19 - Dietary and Speech Recommendations Dietitian Recommendations/Changes: Will provide CHO controlled, pt to choose food options he feels he can eat. ONS w/ meals glucerna w/ B&L, Magic Cup w/ dinner. - Follow Up Care Primary Care Physician: Shayna Winkler [Primary Care Provider] - Please follow up with your Primary Care Physician in: 1-2 weeks
[2019-10-07] MEDS: Lidocaine 5% Patch 1 PATCH TOPICAL (11:36)
--- NOTE | 2019-10-07 11:41 | PHA.DC.MR ---
Pharmacy Service has performed discharge medication reconciliation for this patient. The patient's discharge medication list was reviewed for discrepancies and discrepancies were resolved. Home Medications Insulin NPH Human Isophane [Novolin N] 20 unit SQ BID 10/04/19 Lisinopril [Zestril] 10 mg PO DAILY 10/04/19 Pantoprazole Sodium [Protonix] 20 mg PO DAILY 10/04/19 Acetaminophen [Tylenol Tablet] 650 mg PO Q6H PRN PRN tab 10/07/19 Gabapentin [Neurontin] 300 mg PO BIDCM cap 10/07/19 Glucerna Shake 120 ml PO TIDCM liquid 10/07/19 Insulin Lispro [Humalog KwikPen] 8 unit SUBCUT 1200 insuln.pen 10/07/19 Insulin Lispro [Humalog KwikPen] 8 unit SUBCUT 1700 insuln.pen 10/07/19 Insulin Lispro [Humalog KwikPen] 10 unit SUBCUT 0700 insuln.pen 10/07/19 Insulin Lispro [Humalog KwikPen] See Protocol SUBCUT ACHS insuln.pen 10/07/19 Lidocaine [Lidoderm Patch] 1 patch TOPICAL DAILY patch 10/07/19
[2019-10-07 12:16] LABS: Bedside Glucose 308 mg/dL (70-110)
--- NOTE | 2019-10-07 13:08 | PN_ITS ---
<Andrew Joshi - Last Filed: 10/07/19 13:08> Patient Problems: Active and Suspected Problems (Last Reviewed 10/04/19 @ 23:[address] Spencer Harman MD) DKA (diabetic ketoacidoses) (Acute) Reason for Visit: SOB, DKA Subjective: No complaints. glucose fluctuant, insulins adjusted. pt waiting for transportation to SNF. Vitals/I&O's: Vital Signs Temp Pulse Resp BP Pulse Ox 98.4 F 91 18 120/76 95 10/07/19 08:27 10/07/19 08:27 10/07/19 08:27 10/07/19 08:27 10/07/19 08:27 Oxygen Delivery Method Room Air Weight: 164 lb 10.965 oz Body Mass Index (BMI) 23.8 Finger Stick Blood Glucose 110 Intake and Output for Last 24 Hours 10/05/19 10/06/19 10/07/19 23:59 23:59 23:59 Intake Total 3251.25 / 3851.25 660 / 660 1330 / 1330 Output Total Balance 3251.25 / 3851.25 659 / 659 1330 / 1330 General: Alert, Oriented x3, Cooperative HEENT: Atraumatic, PERRLA, EOMI, Normocephalic Neck: Supple, No JVD, Negative Carotid Bruits Lungs: Clear to auscultation, Normal air movement Cardiovascular: Regular rate, No murmurs Abdomen: Bowel Sounds Present, Soft, Non Tender Extremities: No edema, Capillary Refill Less than 3 Seconds Skin: No rashes, No breakdown Musculoskeletal: No Tenderness to Palpation of Joints or Extremities Neurological: Cranial nerves II-XII grossly intact Psych/Mental Status: Normal Affect, Appropriate, Alert and oriented to time, place, person, mood and affect Microbiology Past 72 Hours 10/04/19 20:55 Blood Culture (Wb) - Anticubital Right Blood Culture - Preliminary No growth in 48 hours. 10/04/19 21:00 Blood Culture (Wb) - Right Forearm Blood Culture - Preliminary No growth in 48 hours. 10/04/19 22:00 Urine, Clean Catch Urine Culture - Final Culture exhibits no growth. 10/04/19 20:50 Mucosa - Nasopharyngeal Influenza Types A,B Direct FA (LONNY) - Final Laboratory Results 10/06/19 16:58: POC Glucose 217 H 10/06/19 20:43: POC Glucose 203 H 10/06/19 22:50: POC Glucose 324 H 10/07/19 06:51: WBC 5.2, RBC 4.94, Hgb 12.5 L, Hct 38.2 L, MCV 77.3 L, MCH 25.3 L, MCHC 32.7, RDW Std Deviation 47.7 H, RDW Coeff of Candace 17.3 H, Plt Count 185, MPV 10.8, Immature Gran % (Auto) 0.200, Neut % (Auto) 43.2 L, Lymph % (Auto) 42.6 H, Alfalfa % (Auto) 9.3, Eos % (Auto) 3.5, Baso % (Auto) 1.2 H, Absolute Neuts (auto) 2.2, Absolute Lymphs (auto) 2.20, Nucleated RBC % 0 10/07/19 06:51: Sodium 134 L, Potassium 4.1, Chloride 102, Carbon Dioxide 27.0, Anion Gap 5, BUN 17, Creatinine 0.50 L, Estim Creat Clear Calc 186.57, Est GFR (MDRD) Af Amer 229, Est GFR (MDRD) Non-Af 189, BUN/Creatinine Ratio 33.8 H, Glucose 232 H, Calcium 8.6 10/07/19 08:14: POC Glucose 323 H 10/07/19 11:26: POC Glucose 308 H Current Medications Acetaminophen (Tylenol) 650 mg PO Q6H PRN PRN PRN Reason: Pain Score 1-10/10 Last Admin: 10/05/19 00:57 Dose: 650 mg Documented by: Enoxaparin Sodium (Lovenox) 40 mg SC DAILY [facility] Last Admin: 10/07/19 08:19 Dose: 40 mg Documented by: Fluticasone Propionate (Flonase Nasal [place]) 2 spray NASAL DAILY [facility] Last Admin: 10/07/19 08:19 Dose: 2 spray Documented by: Gabapentin (Neurontin) 300 mg PO BIDCM [facility] Last Admin: 10/07/19 08:19 Dose: 300 mg Documented by: Glucagon () 1 mg IM .X1 PRN PRN Reason: Hypoglycemia Hydralazine HCl (Apresoline Iv) 5 mg IV Q4H PRN PRN PRN Reason: SBP > 160 or DBP > 120 Dextrose (Dextrose 10%-Water) 250 mls @ 999 mls/hr IV .Q16M PRN; Protocol PRN Reason: HYPOGLYCEMIA Sodium Chloride () 250 mls @ 15 mls/hr IV .[id number] PRN PRN Reason: Saline Flush Sodium Chloride () 250 mls @ 15 mls/hr IV .[id number] PRN PRN Reason: Additional IVPB Infusion Insulin Human Lispro (Humalog Kwikpen (Bkc)) 0 unit SC ACHS [facility]; Protocol Last Admin: 10/07/19 11:36 Dose: 6 u Documented by: Insulin Human Lispro (Humalog Kwikpen (Bkc)) 10 unit SC 0700 PEPITO Insulin Human Lispro (Humalog Kwikpen (Bkc)) 8 unit SC 1700 PEPITO Insulin Human Lispro (Humalog Kwikpen (Bkc)) 8 unit SC 1200 [place]O Last Admin: 10/07/19 11:38 Dose: 8 unit Documented by: Insulin Human NPH (Humulin N (Bk)) 24 units SC BIDAC [place] Lidocaine (Lidoderm Patch) 1 patch TOPICAL DAILY [facility]; Protocol Last Admin: 10/07/19 11:36 Dose: 1 patch Documented by: Lisinopril (Zestril) 10 mg PO DAILY [facility] Last Admin: 10/07/19 08:20 Dose: 10 mg Documented by: Nutritional Formula (Lactose Free) (Glucerna Shake) 120 ml PO TIDCM [facility] Last Admin: 10/07/19 11:37 Dose: Not Given Documented by: Ondansetron HCl (Zofran) 4 mg IV Q8H PRN PRN PRN Reason: NAUSEA/VOMITING Pantoprazole Sodium (Protonix) 20 mg PO DAILY [facility] Last Admin: 10/07/19 08:20 Dose: 20 mg Documented by: Polyethylene Glycol (Miralax) 17 gm PO DAILY [facility] Last Admin: 10/07/19 08:20 Dose: 17 gm Documented by: Sodium Chloride () 10 - 40 ml IV UD PRN PRN Reason: SALINE FLUSH Last Admin: 10/05/19 09:49 Dose: 10 ml Documented by: Medical Necessity - Tobacco Use Smoking Status: Current every day smoker Tobacco Use: Cigarettes Assessment/Plan All Active Problems (Last Reviewed 10/04/19 @ 23:[address] Spencer Harman MD) DKA (diabetic ketoacidoses) (Acute) 1. DKA, insulin-dependent diabetes-still poorly controlled, mealtime, and long- acting insulin adjusted again. Shortness of breath resolved. A1C 12.3 Brittle diabetic, in the past sudden large adjustments have bottomed out his glucose. making gradual changes. 2. Hyponatremia-likely secondary to hyperglycemia. continues to improve. 3. Ongoing debility-continue PT OT and plan for return to longterm. DVT prophylaxis: Lovenox DC planning: SNF, transport unavailable. This patient was seen by Andrew Joshi PA-C under the supervision of Doctor Bridget. <Shari Gill - Last Filed: 10/07/19 15:31> Vitals/I&O's: Vital Signs Temp Pulse Resp BP Pulse Ox 98.1 F 87 18 98/68 100 10/07/19 15:16 10/07/19 15:16 10/07/19 15:16 10/07/19 15:16 10/07/19 15:16 Oxygen Delivery Method Room Air Weight: 74.7 kg Body Mass Index (BMI) 23.8 Finger Stick Blood Glucose 110 Intake and Output for Last 24 Hours 10/05/19 10/06/19 10/07/19 23:59 23:59 23:59 Intake Total 3251.25 / 3851.25 660 / 660 1330 / 1330 Output Total Balance 3251.25 / 3851.25 659 / 659 1330 / 1330 Microbiology Past 72 Hours 10/04/19 20:55 Blood Culture (Wb) - Anticubital Right Blood Culture - Preliminary No growth in 48 hours. 10/04/19 21:00 Blood Culture (Wb) - Right Forearm Blood Culture - Preliminary No growth in 48 hours. 10/04/19 22:00 Urine, Clean Catch Urine Culture - Final Culture exhibits no growth. 10/04/19 20:50 Mucosa - Nasopharyngeal Influenza Types A,B Direct FA (LONNY) - Final Laboratory Results 10/06/19 16:58: POC Glucose 217 H 10/06/19 20:43: POC Glucose 203 H 10/06/19 22:50: POC Glucose 324 H 10/07/19 06:51: WBC 5.2, RBC 4.94, Hgb 12.5 L, Hct 38.2 L, MCV 77.3 L, MCH 25.3 L, MCHC 32.7, RDW Std Deviation 47.7 H, RDW Coeff of Candace 17.3 H, Plt Count 185, MPV 10.8, Immature Gran % (Auto) 0.200, Neut % (Auto) 43.2 L, Lymph % (Auto) 42.6 H, Alfalfa % (Auto) 9.3, Eos % (Auto) 3.5, Baso % (Auto) 1.2 H, Absolute Neuts (auto) 2.2, Absolute Lymphs (auto) 2.20, Nucleated RBC % 0 10/07/19 06:51: Sodium 134 L, Potassium 4.1, Chloride 102, Carbon Dioxide 27.0, Anion Gap 5, BUN 17, Creatinine 0.50 L, Estim Creat Clear Calc 186.57, Est GFR (MDRD) Af Amer 229, Est GFR (MDRD) Non-Af 189, BUN/Creatinine Ratio 33.8 H, Glucose 232 H, Calcium 8.6 10/07/19 08:14: POC Glucose 323 H 10/07/19 11:26: POC Glucose 308 H Current Medications Acetaminophen (Tylenol) 650 mg PO Q6H PRN PRN PRN Reason: Pain Score 1-10/10 Last Admin: 10/05/19 00:57 Dose: 650 mg Documented by: Enoxaparin Sodium (Lovenox) 40 mg SC DAILY [facility] Last Admin: 10/07/19 08:19 Dose: 40 mg Documented by: Fluticasone Propionate (Flonase Nasal [place]) 2 spray NASAL DAILY [facility] Last Admin: 10/07/19 08:19 Dose: 2 spray Documented by: Gabapentin (Neurontin) 300 mg PO BIDCM [facility] Last Admin: 10/07/19 08:19 Dose: 300 mg Documented by: Glucagon () 1 mg IM .X1 PRN PRN Reason: Hypoglycemia Hydralazine HCl (Apresoline Iv) 5 mg IV Q4H PRN PRN PRN Reason: SBP > 160 or DBP > 120 Dextrose (Dextrose 10%-Water) 250 mls @ 999 mls/hr IV .Q16M PRN; Protocol PRN Reason: HYPOGLYCEMIA Sodium Chloride () 250 mls @ 15 mls/hr IV .[id number] PRN PRN Reason: Saline Flush Sodium Chloride () 250 mls @ 15 mls/hr IV .[id number] PRN PRN Reason: Additional IVPB Infusion Insulin Human Lispro (Humalog Kwikpen (Bkc)) 0 unit SC ACHS [facility]; Protocol Last Admin: 10/07/19 11:36 Dose: 6 u Documented by: Insulin Human Lispro (Humalog Kwikpen (Bkc)) 10 unit SC 0700 PEPITO Insulin Human Lispro (Humalog Kwikpen (Bkc)) 8 unit SC 1700 PEPITO Insulin Human Lispro (Humalog Kwikpen (Bkc)) 8 unit SC 1200 [facility] Last Admin: 10/07/19 11:38 Dose: 8 unit Documented by: Insulin Human NPH (Humulin N (Bk)) 24 units SC BIDAC [facility] Lidocaine (Lidoderm Patch) 1 patch TOPICAL DAILY [facility]; Protocol Last Admin: 10/07/19 11:36 Dose: 1 patch Documented by: Lisinopril (Zestril) 10 mg PO DAILY [facility] Last Admin: 10/07/19 08:20 Dose: 10 mg Documented by: Nutritional Formula (Lactose Free) (Glucerna Shake) 120 ml PO TIDCM [facility] Last Admin: 10/07/19 11:37 Dose: Not Given Documented by: Ondansetron HCl (Zofran) 4 mg IV Q8H PRN PRN PRN Reason: NAUSEA/VOMITING Pantoprazole Sodium (Protonix) 20 mg PO DAILY [facility] Last Admin: 10/07/19 08:20 Dose: 20 mg Documented by: Polyethylene Glycol (Miralax) 17 gm PO DAILY [facility] Last Admin: 10/07/19 08:20 Dose: 17 gm Documented by: Sodium Chloride () 10 - 40 ml IV UD PRN PRN Reason: SALINE FLUSH Last Admin: 10/05/19 09:49 Dose: 10 ml Documented by: STROKE Vital Signs/Narrative: Vital Signs Temp Pulse Resp BP Pulse Ox 10/07/19 15:16 98.1 F 87 18 98/68 100 Assessment/Plan This patient was seen in conjunction with AMADEO Gibbs. I have independently interviewed and examined the patient and reviewed pertinent historical, laboratory, and other data. Please refer to AMADEO Gibbs note for his patient's presentation, findings, and recommendations. I have reviewed and his note and concur with his documentation Patient was seen and examined. He complains of back pain and phantom pain. 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 DKA 2. Uncontrolled type II DM 3. Pseudohyponatremia 4. Debility Plan: Insulin changes made, patient being discharged today to SNF
--- NOTE | 2019-10-07 14:01 | CASEMGMT ---
[facility] received approval for patient. BASILIO called [facility] this am to try and set up transport and they did not have any availability. BASILIO called [facility] and they did not have any availability. SW called both back to see if they could transport tomorrow. Neither of them could. SW spoke with patient and he does not have anyone to take him. SW called [facility] and asked if they could bean picker patient. Their van is booked for the day and they don't transport on Saturdays. BASILIO called [employer] as they have a wheelchair van, but they do not bill insurance. BASILIO spoke with Blade at [employer] and they can transport patient at 330. BASILIO spoke with President of Quality Management and [facility] will pay for the transport. BASILIO made arrangements for [facility] and [employer] to work out payment. BASILIO notified Jake, patient, charge rn of this information. Convalescent completed on . Plan: d/c to [facility] under skilled level of care on a convalescent stay. [employer] transported via [place] van. Mariza BETHEA [employer]
--- NOTE | 2019-10-07 14:02 | PCM.DC.SUM ---
<Andrew Joshi - Last Filed: 10/07/19 14:02> Discharge Date and Diagnosis - Problem List Patient Problems: Active and Suspected Problems (Last Reviewed 10/04/19 @ 23:[address] Spencer Harman MD) DKA (diabetic ketoacidoses) (Acute) Date of Admission: 10/04/19 Date of Discharge: 10/07/19 - Primary Discharge Diagnosis Active and Suspected Problems (Last Reviewed 10/04/19 @ 23:[address] Spencer Harman MD) DKA (diabetic ketoacidoses) (Acute) diabetic pseudohyponatremia debility failure to thrive Hospital Course and Treatment Imaging Results: RAD/Chest 1 View (Portable) IMPRESSION: Normal x-ray examination of the chest. Operations: None Procedures: None Summary of Care Provided: Hospital Course: The patient is a 44 year old M with pmhx as above who presented to the ER with complaints of weakness and SOB. He was not taking his insulin regularly or eating regularly. He was found to have glucose of >400, increased anion gap metabolic acidosis, urine + ketones, +acetone. He was admitted for DKA. A1C was 12.3. He was treated with gradual adjustments to lantus, TID insulin, and sliding scale insulin. His breathing improved. He remained too weak to be discharged home. He was agreeable to SNF placement. He was discharged to SNF in stable condition. Please continue to check daily ACHS glucometry and adjust insulin therapy to response. Follow up with PCP 1-2 weeks. This patient was seen by Andrew Joshi PA-C under the supervision of Doctor Gill. [] Patient Problems: Active and Suspected Problems (Last Reviewed 10/04/19 @ 23:[address] Spencer Harman MD) DKA (diabetic ketoacidoses) (Acute) - Physical Exam Vitals/I&O's: Vital Signs Temp Pulse Resp BP Pulse Ox 98.4 F 91 18 120/76 95 10/07/19 08:27 10/07/19 08:27 10/07/19 08:27 10/07/19 08:27 10/07/19 08:27 Oxygen Delivery Method Room Air Weight: 164 lb 10.965 oz Body Mass Index (BMI) 23.8 Finger Stick Blood Glucose 110 Intake and Output for Last 24 Hours 10/05/19 10/06/19 10/07/19 23:59 23:59 23:59 Intake Total 3251.25 / 3851.25 660 / 660 1330 / 1330 Output Total Balance 3251.25 / 3851.25 659 / 659 1330 / 1330 General: Alert, Oriented x3, Cooperative HEENT: Atraumatic, PERRLA, EOMI, Normocephalic Neck: Supple, No JVD, Negative Carotid Bruits Lungs: Clear to auscultation, Normal air movement Cardiovascular: Regular rate, No murmurs Abdomen: Bowel Sounds Present, Soft, Non Tender Extremities: No edema, Capillary Refill Less than 3 Seconds Skin: No rashes, No breakdown Musculoskeletal: No Tenderness to Palpation of Joints or Extremities Neurological: Cranial nerves II-XII grossly intact Psych/Mental Status: Normal Affect, Appropriate Microbiology Past 72 Hours 10/04/19 20:55 Blood Culture (Wb) - Anticubital Right Blood Culture - Preliminary No growth in 48 hours. 10/04/19 21:00 Blood Culture (Wb) - Right Forearm Blood Culture - Preliminary No growth in 48 hours. 10/04/19 22:00 Urine, Clean Catch Urine Culture - Final Culture exhibits no growth. 10/04/19 20:50 Mucosa - Nasopharyngeal Influenza Types A,B Direct FA (LONNY) - Final Laboratory Results 10/06/19 16:58: POC Glucose 217 H 10/06/19 20:43: POC Glucose 203 H 10/06/19 22:50: POC Glucose 324 H 10/07/19 06:51: WBC 5.2, RBC 4.94, Hgb 12.5 L, Hct 38.2 L, MCV 77.3 L, MCH 25.3 L, MCHC 32.7, RDW Std Deviation 47.7 H, RDW Coeff of Candace 17.3 H, Plt Count 185, MPV 10.8, Immature Gran % (Auto) 0.200, Neut % (Auto) 43.2 L, Lymph % (Auto) 42.6 H, [place] % (Auto) 9.3, Eos % (Auto) 3.5, Baso % (Auto) 1.2 H, Absolute Neuts (auto) 2.2, Absolute Lymphs (auto) 2.20, Nucleated RBC % 0 10/07/19 06:51: Sodium 134 L, Potassium 4.1, Chloride 102, Carbon Dioxide 27.0, Anion Gap 5, BUN 17, Creatinine 0.50 L, Estim Creat Clear Calc 186.57, Est GFR (MDRD) Af Amer 229, Est GFR (MDRD) Non-Af 189, BUN/Creatinine Ratio 33.8 H, Glucose 232 H, Calcium 8.6 10/07/19 08:14: POC Glucose 323 H 10/07/19 11:26: POC Glucose 308 H Current Medications Acetaminophen (Tylenol) 650 mg PO Q6H PRN PRN PRN Reason: Pain Score 1-10/10 Last Admin: 10/05/19 00:57 Dose: 650 mg Documented by: Enoxaparin Sodium (Lovenox) 40 mg SC DAILY [facility] Last Admin: 10/07/19 08:19 Dose: 40 mg Documented by: Fluticasone Propionate (Flonase Nasal [place]) 2 spray NASAL DAILY [facility] Last Admin: 10/07/19 08:19 Dose: 2 spray Documented by: Gabapentin (Neurontin) 300 mg PO BIDCM [facility] Last Admin: 10/07/19 08:19 Dose: 300 mg Documented by: Glucagon () 1 mg IM .X1 PRN PRN Reason: Hypoglycemia Hydralazine HCl (Apresoline Iv) 5 mg IV Q4H PRN PRN PRN Reason: SBP > 160 or DBP > 120 Dextrose (Dextrose 10%-Water) 250 mls @ 999 mls/hr IV .Q16M PRN; Protocol PRN Reason: HYPOGLYCEMIA Sodium Chloride () 250 mls @ 15 mls/hr IV .[id number] PRN PRN Reason: Saline Flush Sodium Chloride () 250 mls @ 15 mls/hr IV .[id number] PRN PRN Reason: Additional IVPB Infusion Insulin Human Lispro (Humalog Kwikpen (Bkc)) 0 unit SC ACHS [facility]; Protocol Last Admin: 10/07/19 11:36 Dose: 6 u Documented by: Insulin Human Lispro (Humalog Kwikpen (Bkc)) 10 unit SC 0700 PEPITO Insulin Human Lispro (Humalog Kwikpen (Bkc)) 8 unit SC 1700 PEPITO Insulin Human Lispro (Humalog Kwikpen (Bkc)) 8 unit SC 1200 PEPITO Last Admin: 10/07/19 11:38 Dose: 8 unit Documented by: Insulin Human NPH (Humulin N (Bkc)) 24 units SC BIDAC [facility] Lidocaine (Lidoderm Patch) 1 patch TOPICAL DAILY [facility]; Protocol Last Admin: 10/07/19 11:36 Dose: 1 patch Documented by: Lisinopril (Zestril) 10 mg PO DAILY [facility] Last Admin: 10/07/19 08:20 Dose: 10 mg Documented by: Nutritional Formula (Lactose Free) (Glucerna Shake) 120 ml PO TIDCM PEPITO Last Admin: 10/07/19 11:37 Dose: Not Given Documented by: Ondansetron HCl (Zofran) 4 mg IV Q8H PRN PRN PRN Reason: NAUSEA/VOMITING Pantoprazole Sodium (Protonix) 20 mg PO DAILY [facility] Last Admin: 10/07/19 08:20 Dose: 20 mg Documented by: Polyethylene Glycol (Miralax) 17 gm PO DAILY [facility] Last Admin: 10/07/19 08:20 Dose: 17 gm Documented by: Sodium Chloride () 10 - 40 ml IV UD PRN PRN Reason: SALINE FLUSH Last Admin: 10/05/19 09:49 Dose: 10 ml Documented by: Discharge Diet: Low fat/ Low Cholesterol, 1800 Calorie Control Diet, 2000 mg Sodium Diet Discharge Activity: Return to Normal Activity Home Medications: Medications to take at Discharge Insulin NPH Human Isophane [Novolin N] 20 unit SQ BID 10/04/19 Lisinopril [Zestril] 10 mg PO DAILY 10/04/19 Pantoprazole Sodium [Protonix] 20 mg PO DAILY 10/04/19 Acetaminophen [Tylenol Tablet] 650 mg PO Q6H PRN PRN tab 10/07/19 Gabapentin [Neurontin] 300 mg PO BIDCM cap 10/07/19 Glucerna Shake 120 ml PO TIDCM liquid 10/07/19 Insulin Lispro [Humalog KwikPen] 8 unit SUBCUT 1200 insuln.pen 10/07/19 Insulin Lispro [Humalog KwikPen] 8 unit SUBCUT 1700 insuln.pen 10/07/19 Insulin Lispro [Humalog KwikPen] 10 unit SUBCUT 0700 insuln.pen 10/07/19 Insulin Lispro [Humalog KwikPen] See Protocol SUBCUT ACHS insuln.pen 10/07/19 Lidocaine [Lidoderm Patch] 1 patch TOPICAL DAILY patch 10/07/19 Primary Care Physician: Shayna Winkler [Primary Care Provider] - Please follow up with your Primary Care Physician in: 1-2 weeks Disposition: Home Minutes spent on discharge:: 35 Patient Condition:: Stable Medical Necessity - Tobacco Use Smoking Status: Current every day smoker Tobacco Use: Cigarettes Meaningful Use Info Meaningful Use Diagnoses (Choose all that apply): None applicable <[place] - Last Filed: 10/07/19 15:29> Discharge Date and Diagnosis - Primary Discharge Diagnosis Active and Suspected Problems (Last Reviewed 10/04/19 @ 23:[address] Spencer Harman MD) DKA (diabetic ketoacidoses) (Acute) Hospital Course and Treatment Summary of Care Provided: This patient was seen in conjunction with AMADEO Gibbs. I have independently interviewed and examined the patient and reviewed pertinent historical, laboratory, and other data. Please refer to AMADEO Gibbs note for his patient's presentation, findings, and recommendations. I have reviewed and his note and concur with his documentation 44 year old M with past medical history of type I DM, on insulin, who was [facility] presented with elevated blood sugar, increased anion gap, ketonuria and acetone. His HbA1c was 12.3, patient was initially managed in ICU on insulin drip and then transitioned to Lantus with pre-meal insulin as well as insulin sliding scale. His blood glucose continued to be uncontrolled and changes were made to his insulin as well as pre-meal insulin with ISS. Patient was seen by PT/OT and skilled for discharged to a SNF. On the day of discharge, patient was seen and examined. Denied any new complaints. Physical Exam: Gen: Comfortable, not pale, not jaundiced CVS:HS I +II, regular, no murmurs RESP:CTA GI: BS present and normal, soft, nontender, no palpable organs EXT:No edema, left BKA stump - Physical Exam Vitals/I&O's: Vital Signs Temp Pulse Resp BP Pulse Ox 98.4 F 91 18 120/76 95 10/07/19 08:27 10/07/19 08:27 10/07/19 08:27 10/07/19 08:27 10/07/19 08:27 Oxygen Delivery Method Room Air Weight: 74.7 kg Body Mass Index (BMI) 23.8 Finger Stick Blood Glucose 110 Intake and Output for Last 24 Hours 10/05/19 10/06/19 10/07/19 23:59 23:59 23:59 Intake Total 3251.25 / 3851.25 660 / 660 1330 / 1330 Output Total Balance 3251.25 / 3851.25 659 / 659 1330 / 1330 Microbiology Past 72 Hours 10/04/19 20:55 Blood Culture (Wb) - Anticubital Right Blood Culture - Preliminary No growth in 48 hours. 10/04/19 21:00 Blood Culture (Wb) - Right Forearm Blood Culture - Preliminary No growth in 48 hours. 10/04/19 22:00 Urine, Clean Catch Urine Culture - Final Culture exhibits no growth. 10/04/19 20:50 Mucosa - Nasopharyngeal Influenza Types A,B Direct FA (LONNY) - Final Laboratory Results 10/06/19 16:58: POC Glucose 217 H 10/06/19 20:43: POC Glucose 203 H 10/06/19 22:50: POC Glucose 324 H 10/07/19 06:51: WBC 5.2, RBC 4.94, Hgb 12.5 L, Hct 38.2 L, MCV 77.3 L, MCH 25.3 L, MCHC 32.7, RDW Std Deviation 47.7 H, RDW Coeff of Candace 17.3 H, Plt Count 185, MPV 10.8, Immature Gran % (Auto) 0.200, Neut % (Auto) 43.2 L, Lymph % (Auto) 42.6 H, [place] % (Auto) 9.3, Eos % (Auto) 3.5, Baso % (Auto) 1.2 H, Absolute Neuts (auto) 2.2, Absolute Lymphs (auto) 2.20, Nucleated RBC % 0 10/07/19 06:51: Sodium 134 L, Potassium 4.1, Chloride 102, Carbon Dioxide 27.0, Anion Gap 5, BUN 17, Creatinine 0.50 L, Estim Creat Clear Calc 186.57, Est GFR (MDRD) Af Amer 229, Est GFR (MDRD) Non-Af 189, BUN/Creatinine Ratio 33.8 H, Glucose 232 H, Calcium 8.6 10/07/19 08:14: POC Glucose 323 H 10/07/19 11:26: POC Glucose 308 H Current Medications Acetaminophen (Tylenol) 650 mg PO Q6H PRN PRN PRN Reason: Pain Score 1-10/10 Last Admin: 10/05/19 00:57 Dose: 650 mg Documented by: Enoxaparin Sodium (Lovenox) 40 mg SC DAILY [facility] Last Admin: 10/07/19 08:19 Dose: 40 mg Documented by: Fluticasone Propionate (Flonase Nasal [place]) 2 spray NASAL DAILY [facility] Last Admin: 10/07/19 08:19 Dose: 2 spray Documented by: Gabapentin (Neurontin) 300 mg PO BIDCM [facility] Last Admin: 10/07/19 08:19 Dose: 300 mg Documented by: Glucagon () 1 mg IM .X1 PRN PRN Reason: Hypoglycemia Hydralazine HCl (Apresoline Iv) 5 mg IV Q4H PRN PRN PRN Reason: SBP > 160 or DBP > 120 Dextrose (Dextrose 10%-Water) 250 mls @ 999 mls/hr IV .Q16M PRN; Protocol PRN Reason: HYPOGLYCEMIA Sodium Chloride () 250 mls @ 15 mls/hr IV .[id number] PRN PRN Reason: Saline Flush Sodium Chloride () 250 mls @ 15 mls/hr IV .[id number] PRN PRN Reason: Additional IVPB Infusion Insulin Human Lispro (Humalog Kwikpen (Bkc)) 0 unit SC ACHS [facility]; Protocol Last Admin: 10/07/19 11:36 Dose: 6 u Documented by: Insulin Human Lispro (Humalog Kwikpen (Bkc)) 10 unit SC 0700 [facility] Insulin Human Lispro (Humalog Kwikpen (Bkc)) 8 unit SC 1700 [facility] Insulin Human Lispro (Humalog Kwikpen (Bkc)) 8 unit SC 1200 [facility] Last Admin: 10/07/19 11:38 Dose: 8 unit Documented by: Insulin Human NPH (Humulin N (Bk)) 24 units SC BIDAC [facility] Lidocaine (Lidoderm Patch) 1 patch TOPICAL DAILY [facility]; Protocol Last Admin: 10/07/19 11:36 Dose: 1 patch Documented by: Lisinopril (Zestril) 10 mg PO DAILY [facility] Last Admin: 10/07/19 08:20 Dose: 10 mg Documented by: Nutritional Formula (Lactose Free) (Tommy Renteria) 120 ml PO TIDCM [facility] Last Admin: 10/07/19 11:37 Dose: Not Given Documented by: Ondansetron HCl (Zofran) 4 mg IV Q8H PRN PRN PRN Reason: NAUSEA/VOMITING Pantoprazole Sodium (Protonix) 20 mg PO DAILY [facility] Last Admin: 10/07/19 08:20 Dose: 20 mg Documented by: Polyethylene Glycol (Miralax) 17 gm PO DAILY [facility] Last Admin: 10/07/19 08:20 Dose: 17 gm Documented by: Sodium Chloride () 10 - 40 ml IV UD PRN PRN Reason: SALINE FLUSH Last Admin: 10/05/19 09:49 Dose: 10 ml Documented by: Inpatient E&M: [id number] Disch Hosp
--- NOTE | 2019-10-07 14:27 | NURSING ---
attempted to call report to [facility] no answer or ability to leave message.
[2019-10-07 15:16] VITALS: BP 98/68; PULSE 87; RESP 18; TEMP 36.7; O2SAT 100
--- NOTE | 2019-10-07 15:23 | NURSING ---
called 3rd attempt for report left number for call back.
--- NOTE | 2019-10-11 08:58 | CASEMGMT ---
SW received a copy of a fax from patient's insurance indicating they denied his request for SNF. Patient was discharged to [facility] on Thursday10-07-2019. BASILIO received 2 calls from 2 different individuals at [facility] that said they received authorization on Thursday which is why patient was sent. Patient does have Medicaid so he still will be covered. Mariza BETHEA MSW
== END 2019-10-07 15:20 | disposition skilled nursing facility (03) | DRG 638 ==
LOC: ED 20:47 → ICU 22:36 → PCU 10-05 16:04
PROVIDERS: Physician Assistant; Admitting Provider Hospitalist; Emergency Provider Emergency Medicine; PCP Family Medicine; Visit Provider Internal Medicine
DX: E10.10 Type 1 diabetes mellitus with ketoacidosis without coma (principal); E87.1 Hypo-osmolality and hyponatremia; R62.7 Adult failure to thrive; I10 Essential (primary) hypertension; Z79.4 Long term (current) use of insulin; Z89.512 Acquired absence of left leg below knee; F17.210 Nicotine dependence, cigarettes, uncomplicated
CPT/HCPCS: 36415; 71045; 80048; 80053; 80076; 81001; 82009; 82962; 83036; 83605; 84484; 85025; 85610; 85730; 87040; 87086; 87804; 93005; 97110; 97116; 97162; 97166; 97530; 97802; 99285; 99406; J7030; A4216

== ENCOUNTER 2020-01-25 20:08 | Inpatient (IN) | payer MEDICARE, MEDICAID, SELFPAY ==
[2019-10-04 23:00] VITALS: BMI 23.8
[2020-01-25 20:09] VITALS: BP 146/87; PULSE 90; RESP 16; TEMP 36.7; O2SAT 99; BMI 24.3
[2020-01-25] MEDS: 0.9% Normal Saline 1,000 ML 1000 ML IV (21:17)
--- NOTE | 2020-01-25 21:19 | ED.DCSUM_ITS ---
History of Present Illness Chief Complaint: Wound Check Informant: Patient Onset: Today Narrative: 44-year-old male with past medical history of diabetes presents with redness and swelling to his left lower extremity. Patient had BKA approximately [address] [facility]. States he suffered an open ankle fracture. This got infected and he required vascular surgery. States that Dr. Nogueira did the surgery. States that for the past 4 days he has had swelling and redness which is been worsening. He is unable to attach his prosthetic. Denies any fever or chills. Is not currently seeing wound management. Past Medical History - Allergies and Home Meds Allergies/Adverse Reactions: Allergies No Known Allergies Allergy (Verified 01/25/20 20:11) Past Medical History: - - DM Surgical History: - - Left below the knee amputation Lives: Friends Smoking Status: Current every day smoker Alcohol: None Drugs: None - Family History Maternal Family History: Reports: Diabetes, Heart Disease, Pulmonary Disease Paternal Family History: Reports: Cancer - Pancreatic Review of Systems General: Denies: Chills, Fever, Sweats Eyes: Denies: Visual changes - bilaterally, Diplopia ENT: Denies: Rhinorrhea, Sore throat Cardiovascular: Denies: Chest pain, Palpitations Respiratory: Denies: Dyspnea, Cough, Dyspnea on exertion Gastrointestinal: Denies: Abdominal pain, Nausea, Vomiting, Diarrhea, Melena, Hematochezia Genitourinary: Denies: Dysuria, Hematuria, Frequency Musculoskeletal: Denies: Back pain, Extremity Pain Skin: Reports: - - erythema and edema of the left BKA. Denies: Rash, Wounds Neurological: Denies: Headache, Weakness, Numbness Physical Exam Vital Signs/Narrative: Vital Signs Temp Pulse Resp BP Pulse Ox 01/25/20 20:09 98.1 F 90 16 146/87 H 99 Inital Vital Signs reviewed: Yes General: Well nourished, Well developed, No Acute Distress Head: Normocephalic, Atraumatic Eyes: Perrl, EOMI ENT: Moist mucous membranes, No rhinorrhea Neck: Supple, Nontender Cardiovascular: Regular rate, Regular rhythm, No murmurs Respiratory: No distress, CTA bilaterally, Chest nontender Abdomen: Soft, Nontender, Nondistended, Normal bowel sounds Back: Nontender, Normal Inspection Extremities: - - Left BKA with edema and erythema to the level of the knee. Crusting ulcers. Skin: Normal color, No rash Neurological: Alert, Oriented x3, Cranial nerves II-XII grossly intact, Normal Strength, Normal Sensation Psychological: Normal affect, Normal Mood Diagnostic/Tx/Re-eval Clinical Impression(s) from Imaging Studies Tibia/Fibula X-Ray 01/25/20 21:30 IMPRESSION: Inflammatory changes at surgical site status post amputation of the proximal tibial and fibular shafts. No radiographic evidence for acute osteomyelitis at this time. MRI would be helpful for further evaluation if indicated Electronically Signed: Anthony Bowen MD at 21:47 EDT , Service support , Laboratory Data 01/25/20 01/25/20 20:30 20:30 WBC 13.1 H RBC 4.77 Hgb 12.4 L Hct 39.1 L MCV 82.0 MCH 26.0 L MCHC 31.7 L RDW Std Deviation 48.1 H RDW Coeff of Candace 16.1 H Plt Count 267 MPV 11.4 Immature Gran % (Auto) 0.300 Neut % (Auto) 77.0 H Lymph % (Auto) 13.1 L [place] % (Auto) 7.9 Eos % (Auto) 1.2 Baso % (Auto) 0.5 Absolute Neuts (auto) 10.1 H Absolute Lymphs (auto) 1.72 Nucleated RBC % 0 Sodium 132 L Potassium 4.3 Chloride 96 L Carbon Dioxide 31.0 Anion Gap 5 BUN 7 Creatinine 0.77 Estim Creat Clear Calc 121.15 Est GFR (MDRD) Af Amer 141 Est GFR (MDRD) Non-Af 116 BUN/Creatinine Ratio 9.1 L Glucose 429 H Calcium 8.7 Total Bilirubin 0.30 AST 6 L ALT 13 L Alkaline Phosphatase 126 H Total Protein 7.2 Albumin 3.0 L Globulin 4.2 Albumin/Globulin Ratio 0.7 L - Medical Decision Making Appears well and nontoxic. Vital signs within normal limits. 13,000 leukocytosis. X-ray shows no evidence of subcutaneous gas or osteomyelitis. Likely cellulitis. Patient glucose of 470. No evidence of acidosis or anion gap. Patient was given 1 L of normal saline. Patient will take insulin as prescribed at home when he did to hospitalist floor. Patient was given Zosyn and vancomycin. Orthopedic surgery was contacted and made aware of the patient at the hospitalist request. Admitted in stable condition. ED Disposition - Plan for ED Patient: Disposition: Acute Care Hospital [facility] Diagnosis: Cellulitis
--- NOTE | 2020-01-25 21:30 | RAD_ITS ---
STUDY: X-RAY - LEFT TIBIA AND FIBULA REASON FOR EXAM: Male, 44 years old. LEFT LEG INFECTION, RED AND INFLAMED, AMPUTATED IN MAY TECHNIQUE: 2 view(s) of the tibia and fibula were obtained. COMPARISON: None. FINDINGS: Postsurgical changes status post amputation of the leg through the proximal tibial and fibular shafts. There is diffuse soft tissue swelling or cellulitis operative site. There is no definitive evidence for recurrent osteomyelitis at this time RAD/Tibia & Fibula 2 Views IMPRESSION: Inflammatory changes at surgical site status post amputation of the proximal tibial and fibular shafts. No radiographic evidence for acute osteomyelitis at this time. MRI would be helpful for further evaluation if indicated Electronically Signed: Anthony Bowen MD at 21:47 EDT , Service support ,
[2020-01-25 21:38] LABS: Absolute Lymphocyte Count 1.72 X10^3/uL (0.83-4.51); Absolute Neutrophil Count 10.1 X10^3/uL (2.0-7.7); Basophil# 0.07 X10^3/uL; Basophil% 0.5 % (0-1); Eosinophil# 0.16 X10^3/uL; Eosinophils% 1.2 % (0-5); Hematocrit 39.1 % (40-54); Hemoglobin 12.4 g/dL (13.0-16.5); Lymphocyte # 1.72 X10^3/ul (4.0); Lymphocyte % 13.1 % (19-41); Mean Corp Hgb Conc 31.7 g/dL (32-36); Mean Platelet Vol. 11.4 fl (6.2-12.0); Monocyte# 1.04 X10^3/uL; Monocyte% 7.9 % (0-10); NRBC Flagged by Analyzer 0 % (0-5); Neutrophil # 10.06 X10^3/uL (2.7-7.7); Platelet Count 267 K/mm3 (150-450); RBC Distribution Width CV 16.1 % (11.6-14.6); RBC Distribution Width SD 48.1 fl (35.1-43.9); Red Blood Count 4.77 M/mm3 (4.6-6.2); White Blood Count 13.1 K/mm3 (4.4-11.0)
[2020-01-25 21:50] LABS: ALB/GLOB Ratio 0.7 RATIO (0.9-2.4); AST(SGOT) 6 U/L (15-37); Alanine Aminotransfer ALT/SGPT 13 U/L (16-61); Alkaline Phosphatase 126 U/L (45-117); Anion Gap 5 (5-15); BUN 7 mg/dL (7-18); BUN/Creat Ratio 9.1 RATIO (10-20); Calcium,Total 8.7 mg/dL (8.5-10.1); Chloride 96 mmol/L (98-107); Creatinine, Serum 0.77 mg/dL (0.70-1.30); EST Glomerular Filtration Rate 116 mL/min (>60); Est Glom Filt Rate - Afr Amer 141 mL/min (>60); Estimated Creatinine Clearance 121.15 ml/min; Globulin 4.2 g/dL (2.2-4.2); Glucose 429 mg/dL (74-106); Potassium 4.3 mmol/L (3.5-5.1); Protein, Total 7.2 g/dL (6.4-8.2); Sodium Level 132 mmol/L (136-145)
[2020-01-25 22:31] VITALS: PULSE 98; RESP 16; O2SAT 96
--- NOTE | 2020-01-25 22:58 | PCM.HP.STD ---
Problem List (1) Hypertension Status: Chronic Qualifiers: Hypertension type: essential hypertension Qualified Code(s): I10 - Essential (primary) hypertension (2) Cellulitis Status: Acute Qualifiers: Site of cellulitis: extremity Site of cellulitis of extremity: lower extremity Laterality: left Qualified Code(s): L03.116 - Cellulitis of left lower limb (3) DM type 1 (diabetes mellitus, type 1) Status: Chronic Qualifiers: Diabetes mellitus complication status: with neurologic complications Diabetes mellitus complication detail: with polyneuropathy Qualified Code(s): E10.42 - Type 1 diabetes mellitus with diabetic polyneuropathy (4) PAD (peripheral artery disease) Status: Chronic History of Present Illness Date of Admission: 01/25/20 Chief Complaint: Left BKA stump swelling and pain - 1 week The patient is a 44 year old M past medical history of type I DM, diagnosed when he was 10 years old, complicated by peripheral neuropathy as well as arthropathy and PAD. Patient had a left BKA done in June 2019 [facility] by Dr. Nogueira after he suffered an open ankle fracture which got infected and had vascular surgery complications. Patient stated that he recently got his leg prosthesis 1 month ago. He however started walking without support in his prosthesis 2 weeks ago. He noticed left stump swelling and erythema ongoing for 1 week. He denied any fever but admits to chills. Denied any dizziness or chest pain or palpitations or diarrhea or abdominal pain. He has severe peripheral neuropathy and has severely reduced sensation below his waist. Vitals in the ED showed temperature of 98.1F, heart rate 90, BP 146/87, respiratory 16, SPO2 99% on room air. WBC count is 13.1, hemoglobin 12.4, platelet count 267, sodium 132, potassium 4.3, chloride 96, bicarbonate 31, BUN 7, creatinine 0.77, LFTs unremarkable. X-ray of the left tibia-fibula showed inflammatory changes at the surgical site status post amputation of the proximal tibia and fibular shafts. No radiographic evidence of acute osteomyelitis at this time. Past Medical History Past Medical History (Chronic Problems): Chronic Problems (Last Reviewed 10/04/19 @ 23:[address] Spencer Harman MD) Hypertension (Chronic) DM type 1 (diabetes mellitus, type 1) (Chronic) PAD (peripheral artery disease) (Chronic) Medical History: Medical History (Last Reviewed 10/04/19 @ 23:[address] Spencer Harman MD) Diabetes mellitus E11.9 Allergies No Known Allergies Allergy (Verified 01/25/20 20:11) Home Medications: Ambulatory Orders Medication Instructions Recorded Lisinopril [Zestril] 10 mg PO DAILY 10/04/19 Pantoprazole Sodium [Protonix] 20 mg PO DAILY 10/04/19 Gabapentin [Neurontin] 300 mg PO BIDCM cap 10/07/19 Insulin Glargine,Hum.rec.anlog 25 unit SQ QHS 01/25/20 [Lantus] Insulin Lispro [Humalog KwikPen] See Protocol SUBCUT TID 01/25/20 Surgical History: - - Left below the knee amputation Psychiatric History: No pertinent psych hx Lives: Friends Smoking Status: Current every day smoker Tobacco Use: Cigarettes Alcohol: Occasional Drugs: Marijuana - *Family History Maternal History Items: Diabetes, Heart Disease, Pulmonary Disease Paternal History Items: Cancer - Pancreatic Review of Systems Constitutional: Reports: Chills. Denies: Anorexia, Fever, Night Sweats, Malaise, Weakness, Weight Change, Fatigue Eyes: Denies: Blurred vision, Cataracts, Conjunctivae Inflammation, Pain, Redness, Vision Change HEENT: Denies: Difficulty Hearing, Difficulty Swallowing, Head Aches, Hearing Changes, Sinus Congestion, Sinus Drainage, Sore Throat Cardiovascular: Denies: Chest Pain, Claudication, Orthopnea, Palpitations, Paroxysmal Noc. Dyspnea Respiratory: Denies: Cough, Hemoptysis, Shortness of breath at rest, Shortness of breath upon exertion, Sputum production Gastrointestinal: Denies: Abdominal Pain, Constipation, Hematemesis, Hematochezia, Nausea, Vomiting Genitourinary: Denies: Dysuria, Frequency, Incontinence, Nocturia Musculoskeletal: Reports: Joint Pain, Joint swelling, Joint Tenderness, Leg Pain. Denies: Joint stiffness Skin: Denies: Pruritis, Rash, Wounds Neurological: Denies: Numbness, Tingling, Focal weakness Psychiatric: Denies: Anxiety, Depression, Homicidal Ideations, Suicidal Ideations Hematologic/ Lymphatic: Denies: Easy Bruising, Easy Bleeding VTE Information - Inpt Only VTE Present on Admission: No VTE Pharm Prophylaxis ordered?: Yes Patient Problems: Active and Suspected Problems (Last Reviewed 10/04/19 @ 23:[address] Spencer Harman MD) Cellulitis (Acute) - Physical Exam Vitals/I&O's: Vital Signs Temp Pulse Resp BP Pulse Ox 98.1 F 98 16 146/87 H 96 01/25/20 20:09 01/25/20 22:31 01/25/20 22:31 01/25/20 20:09 01/25/20 22:31 Oxygen Delivery Method Room Air Weight: 74.843 kg Body Mass Index (BMI) 24.3 Finger Stick Blood Glucose 110 General: Alert, Oriented x3, Cooperative, No apparent distress HEENT: Atraumatic, PERRLA, EOMI, Normocephalic Oral: Moist Mucosa Neck: Supple Lungs: Clear to auscultation, Normal air movement Cardiovascular: Regular rate, Regular Rhythm, Normal S1, Normal S2 Abdomen: Bowel Sounds Present, Soft, Non Tender, Non-Distended, No Hepato-splenomegaly Extremities: Tenderness - swollen distal left BKA stump, erythematous, areas of distal ulceration, warm to touch, Right lower leg anterior hsu dark ulceration Skin: - - see under extremities Musculoskeletal: Tenderness - to left BKA Lymphatic: No Cervical, Supraclavicular, or Inguinal Adenopathy Neurological: Cranial nerves II-XII grossly intact, Neuro grossly intact - except for decreased sensation in lower extremities Psych/Mental Status: Normal Affect, Appropriate Laboratory Results 01/25/20 20:30: WBC 13.1 H, RBC 4.77, Hgb 12.4 L, Hct 39.1 L, MCV 82.0, MCH 26.0 L, MCHC 31.7 L, RDW Std Deviation 48.1 H, RDW Coeff of Candace 16.1 H, Plt Count 267, MPV 11.4, Immature Gran % (Auto) 0.300, Neut % (Auto) 77.0 H, Lymph % (Auto) 13.1 L, [place] % (Auto) 7.9, Eos % (Auto) 1.2, Baso % (Auto) 0.5, Absolute Neuts (auto) 10.1 H, Absolute Lymphs (auto) 1.72, Nucleated RBC % 0 01/25/20 20:30: Sodium 132 L, Potassium 4.3, Chloride 96 L, Carbon Dioxide 31.0, Anion Gap 5, BUN 7, Creatinine 0.77, Estim Creat Clear Calc 121.15, Est GFR (MDRD) Af Amer 141, Est GFR (MDRD) Non-Af 116, BUN/Creatinine Ratio 9.1 L, Glucose 429 H, Calcium 8.7, Total Bilirubin 0.30, AST 6 L, ALT 13 L, Alkaline Phosphatase 126 H, Total Protein 7.2, Albumin 3.0 L, Globulin 4.2, Albumin/Globulin Ratio 0.7 L Current Medications Vancomycin HCl 1,500 mg/ (Sodium Chloride) 530 mls @ 250 mls/hr IV X1 ONE Stop: 01/26/20 00:31 Assessment/Plan All Active Problems (Last Reviewed 10/04/19 @ 23:[address] Spencer Harman MD) DKA (diabetic ketoacidoses) (Acute) Cellulitis (Acute) 44-year-old male with past medical history of type I DM complicated by peripheral neuropathy, hypertension, PAD, status post left BKA comes in with left BKA swelling and erythema of 1 week. 1. Left BKA cellulitis/possible abscess/possible osteomyelitis X-ray of the femur, tibia and fibula was negative for radiographic evidence of osteomyelitis Clinically, patient's lower extremity looks extremely infected Started on IV vancomycin and Zosyn, will continue same Orthopedic surgery consulted from the ED We will consult ID, Will leave decision for MRI of the left BKA stump to ID/orthopedic surgery 2. Type I DM, complicated by peripheral neuropathy, diabetic arthropathy(Charcot foot in right foot) History of recurrent DKA's from medication noncompliance. Last HbA1c was 12.3 in September 2019 Will continue on Lantus, insulin sliding scale with blood glucose checks Recheck HbA1c, continue on gabapentin 3. Hypertension, controlled, continue lisinopril 4. GERD, stable, continue on PPI 5. DVT PPx- Lovenox SC Inpatient E&M: 73137 Init Hosp L3
[2020-01-25 23:14] VITALS: BP 151/98; PULSE 102; RESP 16; TEMP 36.9; O2SAT 98
[2020-01-26] VITALS (7 sets, daily range): BP systolic 122–168; BP diastolic 73–97; PULSE 74–89; RESP 16–18; TEMP 36.7–37.2; O2SAT 96–100; BMI 24.6; BMI 24.7
--- NOTE | 2020-01-26 00:43 | PCM.RX.CS ---
Consult Pharmacy has been consulted to manage selected antiobiotic: Vancomycin Type of Consult: New start Suspected Infection: Skin/Soft tissue Prior Doses of Antibiotics Received/Current Regimen: Medications Vancomycin HCl (Vancomycin) 1,000 mg in 200 mls @ 200 mls/hr IV Q8H PEPITO Discontinued Medications Vancomycin HCl 1,500 mg/ (Sodium Chloride) 530 mls @ 250 mls/hr IV X1 ONE Stop: 01/26/20 00:31 Last Admin: 01/26/20 00:16 Dose: 250 mls/hr Labs: Sodium 132 mmol/L (136-145) L 01/25/20 20:30 Potassium 4.3 mmol/L (3.5-5.1) 01/25/20 20:30 Chloride 96 mmol/L (98-107) L 01/25/20 20:30 Carbon Dioxide 31.0 mmol/L (21.0-32.0) 01/25/20 20:30 Anion Gap 5 (5-15) 01/25/20 20:30 BUN 7 mg/dL (7-18) 01/25/20 20:30 Creatinine 0.77 mg/dL (0.70-1.30) 01/25/20 20:30 Est GFR (MDRD) Af Amer 141 mL/min (>60) 01/25/20 20:30 Est GFR (MDRD) Non-Af 116 mL/min (>60) 01/25/20 20:30 BUN/Creatinine Ratio 9.1 RATIO (10-20) L 01/25/20 20:30 Glucose 429 mg/dL (74-106) H 01/25/20 20:30 Weight used for dosin.8 kg Estimated Creatinine Clearance: 121 Goal Trough: 15-20 mcg/mL Pharmacy Plan for Drug Dosing: Pharmacy Service will continue to monitor and adjust dosing as required. Follow-Up Labs: Trough Vancomycin Labs to be done on [date and time ordered]: 01/27/20 @0000
[2020-01-26 00:51] LABS: Bedside Glucose 266 mg/dL (70-110)
[2020-01-26] MEDS: 0.9% Saline Lock 10 ML Syringe IV ×5 (01:13→16:23)
[2020-01-26 01:15] LABS: Hemoglobin A1c 12.1 % (3.8-5.6)
--- NOTE | 2020-01-26 01:34 | NURSING ---
pt reports to this nurse last drink was 01/19 -1 beer. last time he injected meth was 2 weeks ago.
[2020-01-26 01:35] LABS: Iron 17 ug/dL (65-175); Iron Binding Capacity,Total 295 ug/dL (250-450); PERCENT IRON SATURATION 5.8 % (15.0-55.0)
[2020-01-26] MEDS: 0.9% Normal Saline 1,000 ML 100 ML IV ×2 (02:38→11:45)
[2020-01-26 06:05] LABS: Absolute Lymphocyte Count 1.18 X10^3/uL (0.83-4.51); Basophil# 0.07 X10^3/uL; Basophil% 0.6 % (0-1); Eosinophil# 0.17 X10^3/uL; Eosinophils% 1.5 % (0-5); Hematocrit 34.8 % (40-54); Hemoglobin 11.1 g/dL (13.0-16.5); Lymphocyte # 1.18 X10^3/ul (4.0); Lymphocyte % 10.4 % (19-41); Mean Corp Hgb Conc 31.9 g/dL (32-36); Mean Corpuscular Hgb 26.2 pg (27.0-32.0); Mean Corpuscular Volume 82.1 fL (80-94); Mean Platelet Vol. 10.9 fl (6.2-12.0); Monocyte# 0.84 X10^3/uL; Monocyte% 7.4 % (0-10); NRBC Flagged by Analyzer 0 % (0-5); Neutrophil # 9.04 X10^3/uL (2.7-7.7); Neutrophil % 79.7 % (47-70); Platelet Count 209 K/mm3 (150-450); RBC Distribution Width CV 16.2 % (11.6-14.6); RBC Distribution Width SD 48.5 fl (35.1-43.9); Red Blood Count 4.24 M/mm3 (4.6-6.2); White Blood Count 11.4 K/mm3 (4.4-11.0)
[2020-01-26 06:35] LABS: ALB/GLOB Ratio 0.7 RATIO (0.9-2.4); AST(SGOT) 7 U/L (15-37); Alanine Aminotransfer ALT/SGPT 11 U/L (16-61); Albumin, Serum 2.3 g/dL (3.2-5.0); Alkaline Phosphatase 99 U/L (45-117); Anion Gap 7 (5-15); BUN 6 mg/dL (7-18); Calcium,Total 7.9 mg/dL (8.5-10.1); Chloride 102 mmol/L (98-107); Creatinine, Serum 0.46 mg/dL (0.70-1.30); EST Glomerular Filtration Rate 209 mL/min (>60); Est Glom Filt Rate - Afr Amer 253 mL/min (>60); Estimated Creatinine Clearance 202.79 ml/min; Globulin 3.3 g/dL (2.2-4.2); Glucose 221 mg/dL (74-106); Potassium 3.4 mmol/L (3.5-5.1); Protein, Total 5.6 g/dL (6.4-8.2); Sodium Level 137 mmol/L (136-145)
--- NOTE | 2020-01-26 06:43 | NURSING ---
pt states he will take his am insulin when his breakfast is delivered.
[2020-01-26 06:51] LABS: Bedside Glucose 189 mg/dL (70-110)
[2020-01-26] MEDS: Acetaminophen 325 MG Tablet 650 MG PO (07:55)
[2020-01-26] MEDS: oxyCODONE 5 MG Tablet PO ×4 (07:57→21:33)
[2020-01-26] MEDS: Vancomycin IV 1,000 MG/200 ML BAG 200 MG IV ×2 (08:09→16:22)
[2020-01-26] MEDS: Gabapentin 300 MG Capsule PO ×2 (08:11→16:23)
--- NOTE | 2020-01-26 08:43 | PCM.PROGNOTE ---
Patient Problems: Active and Suspected Problems (Last Reviewed 10/04/19 @ 23:[address] Spencer Harman MD) Cellulitis (Acute) Subjective: Chief complaint: Follow-up after admission for acute cellulitis of the below left knee amputation stump/infected wound with possible abscess as well as uncontrolled type 1 diabetes mellitus. Patient seen and examined. No acute events overnight. This morning, is complaining of pain at the infection site, 6 out of 10 in severity. Denied fever or chills. He complained of chronic abdominal pain. Denied chest pain or shortness of breath. He is afebrile, other vital signs are stable. - Physical Exam Vitals/I&O's: Vital Signs Temp Pulse Resp BP Pulse Ox 98.3 F 83 18 122/73 H 98 01/26/20 06:36 01/26/20 06:36 01/26/20 06:36 01/26/20 06:36 01/26/20 06:36 Oxygen Delivery Method Room Air Weight: 166 lb 3.657 oz Body Mass Index (BMI) 24.6 Finger Stick Blood Glucose 110 Intake and Output for Last 24 Hours 01/24/20 01/25/20 01/26/20 23:59 23:59 23:59 Intake Total 1050 / 1050 530.25 / 530.25 Balance 1050 / 1050 530.25 / 530.25 General: Alert, Oriented x3, Cooperative, No apparent distress HEENT: Atraumatic, PERRLA, EOMI, Normocephalic Oral: Moist Mucosa, No Gingival or Mucosal Lesions/ Ulcerations Neck: Supple, No JVD, Negative Carotid Bruits, Trachea Midline, Thyroid Normal Size and Texture Lungs: Clear to auscultation, Normal air movement, No rhonchi, No wheeze, No rales, Diminished Cardiovascular: Regular rate, Regular Rhythm, Normal S1, Normal S2, PMI Normal Abdomen: Bowel Sounds Present, Soft, Non Tender, Non-Distended, No Hepato-splenomegaly Extremities: No clubbing, No cyanosis, No edema, - - Status post below left knee amputation. Amputation stump is swollen, erythematous, hot to palpation, tender, 2 small dry wounds measuring about 2 x 2 cm. Skin: No rashes, Ulcer/ Wound Lymphatic: No Cervical, Supraclavicular, or Inguinal Adenopathy Neurological: Cranial nerves II-XII grossly intact, Neuro grossly intact Psych/Mental Status: Normal Affect, Appropriate, Alert and oriented to time, place, person, mood and affect Laboratory Results 01/25/20 20:30: WBC 13.1 H, RBC 4.77, Hgb 12.4 L, Hct 39.1 L, MCV 82.0, MCH 26.0 L, MCHC 31.7 L, RDW Std Deviation 48.1 H, RDW Coeff of Candace 16.1 H, Plt Count 267, MPV 11.4, Immature Gran % (Auto) 0.300, Neut % (Auto) 77.0 H, Lymph % (Auto) 13.1 L, [place] % (Auto) 7.9, Eos % (Auto) 1.2, Baso % (Auto) 0.5, Absolute Neuts (auto) 10.1 H, Absolute Lymphs (auto) 1.72, Nucleated RBC % 0 01/25/20 20:30: Sodium 132 L, Potassium 4.3, Chloride 96 L, Carbon Dioxide 31.0, Anion Gap 5, BUN 7, Creatinine 0.77, Estim Creat Clear Calc 121.15, Est GFR (MDRD) Af Amer 141, Est GFR (MDRD) Non-Af 116, BUN/Creatinine Ratio 9.1 L, Glucose 429 H, Calcium 8.7, Total Bilirubin 0.30, AST 6 L, ALT 13 L, Alkaline Phosphatase 126 H, Total Protein 7.2, Albumin 3.0 L, Globulin 4.2, Albumin/Globulin Ratio 0.7 L 01/25/20 20:30: Hemoglobin A1c 12.1 H 01/25/20 20:30: Iron 17 L, TIBC 295, Iron Saturation 5.8 L 01/26/20 00:46: POC Glucose 266 H 01/26/20 05:25: WBC 11.4 H, RBC 4.24 L, Hgb 11.1 L, Hct 34.8 L, MCV 82.1, MCH 26.2 L, MCHC 31.9 L, RDW Std Deviation 48.5 H, RDW Coeff of Candace 16.2 H, Plt Count 209, MPV 10.9, Immature Gran % (Auto) 0.400, Neut % (Auto) 79.7 H, Lymph % (Auto) 10.4 L, [place] % (Auto) 7.4, Eos % (Auto) 1.5, Baso % (Auto) 0.6, Absolute Neuts (auto) 9.0 H, Absolute Lymphs (auto) 1.18, Nucleated RBC % 0 01/26/20 05:25: Sodium 137, Potassium 3.4 L, Chloride 102, Carbon Dioxide 28.0, Anion Gap 7, BUN 6 L, Creatinine 0.46 L, Estim Creat Clear Calc 202.79, Est GFR (MDRD) Af Amer 253, Est GFR (MDRD) Non-Af 209, BUN/Creatinine Ratio 13.0, Glucose 221 H, Calcium 7.9 L, Total Bilirubin 0.30, AST 7 L, ALT 11 L, Alkaline Phosphatase 99, Total Protein 5.6 L, Albumin 2.3 L, Globulin 3.3, Albumin/Globulin Ratio 0.7 L 01/26/20 06:35: POC Glucose 189 H Clinical Impression(s) from Imaging Studies Tibia/Fibula X-Ray 01/25/20 21:30 IMPRESSION: Inflammatory changes at surgical site status post amputation of the proximal tibial and fibular shafts. No radiographic evidence for acute osteomyelitis at this time. MRI would be helpful for further evaluation if indicated Electronically Signed: Anthony Bowen MD at 21:47 EDT , Service support , Current Medications Acetaminophen (Tylenol) 650 mg PO Q6H PRN PRN PRN Reason: Pain Score 1-10/Temp > 100.7 F Last Admin: 01/26/20 07:55 Dose: 650 mg Documented by: Al Hydroxide/Mg Hydroxide (Mylanta Ii) 30 ml PO Q6H PRN PRN PRN Reason: Gastric Burning Dextrose (D50w Syringe) 0 gm IV X1 PRN; Protocol PRN Reason: Hypoglycemia Enoxaparin Sodium (Lovenox) 40 mg SC DAILY [facility] Gabapentin (Neurontin) 300 mg PO BIDCM [facility] Last Admin: 01/26/20 08:11 Dose: 300 mg Documented by: Glucagon () 1 mg IM .X1 PRN PRN Reason: Hypoglycemia Sodium Chloride () 1,000 mls @ 100 mls/hr IV .Q10H PEPITO Stop: 01/26/20 15:03 Last Admin: 01/26/20 02:38 Dose: 100 mls/hr Documented by: Sodium Chloride () 250 mls @ 15 mls/hr IV .[id number] PRN PRN Reason: Saline Flush Last Infusion: 01/26/20 05:48 Dose: 0 mls/hr Documented by: Sodium Chloride () 250 mls @ 15 mls/hr IV .[id number] PRN PRN Reason: Additional IVPB Infusion Vancomycin IV Pharmacy to Dose (1 ea/ Sodium Chloride) 500 mls @ 250 mls/hr IV PRN PRN; Protocol PRN Reason: Rx to Dose Piperacillin Sod/Tazobactam (Sod 3.375 gm/ Sodium Chloride) 50 mls @ 12.5 mls/hr IV Q8 PEPITO Last Admin: 01/26/20 05:47 Dose: 12.5 mls/hr Documented by: Vancomycin HCl (Vancomycin) 1,000 mg in 200 mls @ 200 mls/hr IV Q8H PEPITO Last Admin: 01/26/20 08:09 Dose: 200 mls/hr Documented by: Insulin Glargine (Lantus (Bkc)) 25 units SC QHS PEPITO Last Admin: 01/26/20 00:59 Dose: 25 u Documented by: Insulin Human Lispro (Humalog Kwikpen (Bkc)) 0 unit SC ACHS [facility]; Protocol Last Admin: 01/26/20 08:14 Dose: Not Given Documented by: Lisinopril (Zestril) 10 mg PO DAILY [facility] Ondansetron HCl (Zofran) 4 mg IV Q8H PRN PRN PRN Reason: NAUSEA/VOMITING Oxycodone HCl (Oxyir) 5 mg PO Q4H PRN PRN PRN Reason: Pain Score 4-10/10 Last Admin: 01/26/20 07:57 Dose: 5 mg Documented by: Pantoprazole Sodium (Protonix) 20 mg PO DAILY [facility] Psyllium Hydrophilic Mucilloid (Metamucil) 1 packet PO DAILY PRN PRN PRN Reason: Constipation Senna/Docusate Sodium (Senokot-S, Eliza-Colace) 2 tablet PO BID PRN PRN PRN Reason: Constipation Sodium Chloride () 10 - 40 ml IV UD PRN PRN Reason: SALINE FLUSH Last Admin: 01/26/20 08:09 Dose: 10 ml Documented by: Medical Necessity - Tobacco Use Smoking Status: Current every day smoker Tobacco Use: Cigarettes Assessment/Plan All Active Problems (Last Reviewed 10/04/19 @ 23:[address] Spencer Harman MD) Cellulitis (Acute) This is a 44 years old male patient presented to the emergency room because of swelling and redness of the left below-knee amputation stump, found to have acute cellulitis of that stump with infected wounds. #1 below left knee amputation stump cellulitis/infected wounds: Osteomyelitis cannot be ruled out. Patient had infection of the this stump twice and this is the third time after he had initial surgery of the amputation on May,. Currently, he is on IV vancomycin and Zosyn. He is afebrile, WBC is trending down. X-ray of the left leg reviewed. Orthopedic surgery and infectious disease consulted. Plan: Check ESR, CRP, continue IV antibiotics, wound care nurse consult. #2 uncontrolled type 2 diabetes mellitus: Hemoglobin A1c is 12.1%. Blood glucose has been fluctuating significantly. Patient stated that usually his blood sugar is very high and uncontrolled. He is on Lantus nightly and sliding scale. Plan to continue same treatment, adjust Lantus accordingly. #3 hypertension: Blood pressure stable, continue lisinopril. #4 peripheral neuropathy: Stable, continue gabapentin. #5 GERD: Continue Protonix. #6 DVT prophylaxis: Subcu Lovenox. This note was generated with [employer] software. It may contain incorrect words, spelling, and punctuation that were not noted in checking the note before signing. Inpatient E&M: 72612 Subs Hosp L2
[2020-01-26 09:32] LABS: Erythrocyte Sedimentation Rate 45 mm/hr (0-15)
--- NOTE | 2020-01-26 09:44 | MRI_ITS ---
MRI of the left leg without and with contrast INDICATION: Status post below-knee amputation with stump infection COMPARISON: X-ray 01/25/2020 TECHNIQUE: Multiplanar spin-echo minute resonance images of the left leg were obtained without with the administration of 15 mL of Optiray intravenously, FINDINGS: The patient is status post below knee amputation. There is moderate muscular atrophy. There is diffuse skin thickening with edema of the subcutaneous fat consistent with cellulitis. There is a 2.0 x 5.5 x 5.5 cm fluid collection anteriorly just anteromedial to the proximal tibia consistent with an abscess. There is a smaller second fluid collection which extends more anterolaterally worrisome for a second abscess and possible dermal sinus tract. There is no evidence of bony destruction or marrow edema to suggest osteomyelitis. IMPRESSION: Cellulitis with a 2.0 x 5.5 x 5.5 cm abscess anterior to the tibia but no osteomyelitis. Electronically Signed: Reese Harry MD at 13:37 EDT Tel , Service support , MRI/Lower Ext No Joint W/WO Cont
[2020-01-26] MEDS: Pantoprazole Sodium 20 MG Tablet PO (10:04)
[2020-01-26] MEDS: Lisinopril 10 MG Tablet PO (10:04)
[2020-01-26] MEDS: Enoxaparin 40 MG/0.4 ML Syringe SC (10:04)
--- NOTE | 2020-01-26 10:11 | NURSING ---
wound photo: left stump
[2020-01-26 11:40] LABS: Bedside Glucose 300 mg/dL (70-110)
[2020-01-26] MEDS: Insulin Lispro 100 UNIT/ML INSULN.PEN SC ×3 (11:41→21:35)
--- NOTE | 2020-01-26 12:22 | CASEMGMT ---
Addendum entered by Vida Campuzano 01/26/20 16:23: Social Work SW met with pt in room. Shortly after conversation started physician entered room for examination. SW will meet with pt for assessment tomorrow. VINCENT Simms Original Note: Social Work SW received referral as pt is having difficulty managing at home alone. SW met with pt and introduced self. Tech then entered room to take pt for MRI. SW will followup later today or tomorrow as time allows. VINCENT Simms
[2020-01-26 13:11] LABS: M R Staph aureus DNA By PCR Negative (Negative); Probe Check PASS; Specimen Processing Control PASS; Staph aureus DNA By PCR POSITIVE (Negative)
[2020-01-26] MEDS: Glucerna Shake 120 ML LIQUID PO ×3 (13:32→21:33)
--- NOTE | 2020-01-26 15:59 | CON.PCM_ITS ---
Problem List (1) Cellulitis Status: Acute Qualifiers: Site of cellulitis: extremity Site of cellulitis of extremity: lower extremity Laterality: left Qualified Code(s): L03.116 - Cellulitis of left lower limb Comment: Left lower extremity cellulitis at previous BKA stump. MRI confirmed underlying abscess - Consult Date of Consult: 01/26/20 Patient was seen at the bedside for consultation. Upon entering the room he was conversing with social work and appeared to be resting comfortably without any acute distress or pains. He was pleasant in conversation with appropriate mood and affect. He was easily understood without any signs of confusion or distress. Occlusive dressing was taken down to evaluate the stump. There was evident skin pen chauhan were previous erythema had reached. There was still evident generalized (circumferential) erythema on the stump (more prominent on the distal end and anterior aspect) at the same time does appear to have receded from previous skin chauhan. There are two superficial skin breakdowns noted on the stump just proximal to the previous incision site towards the lateral aspect of the stump. One of them is a scabbed area with minor depression and some surrounding granular tissue at the same time is closed with no evident draining. This is approximately 2.0 cm in diameter. There is no change in the erythema around these wound edges and there is no central pustule or evidence of underlying purulence. There is another wound more lateral that has some central depression with minor blistering and evident central underlying purulence. There is no current draining from this though. This wound is just under 2cm in diameter. There is generalized warmth on palpation of the skin and there is tenderness on palpation on the stump especially around the open skin wounds. There is also some evidence of fluctuating swelling underneath the more medial skin wound. The proximal leg has soft compartments without any tenderness or other symptoms and he has intact sensation to light touch throughout the extremity. MRI revealed evidence of underlying abscess measuring 2.0 x 5.5 x 5.5cm with possible sinus tract into a second abscess. Due to patients Diabetes (uncontrolled) and the size of this abscess, this likely will require open incision and drainage with irrigation and debridement in the OR. Patient will c ontinue IV antibiotics and will be NPO after midnight. Will be seen by surgeon first thing AM to confirm need for surgical intervention and if warranted taken shortly after. - Reason for Consult Consultation for cellulitis with probably underlying abscess on site of previous BKA stump to determine possible surgical intervention for incision and drainage.
[2020-01-26 16:35] LABS: Bedside Glucose 339 mg/dL (70-110)
[2020-01-26 21:45] LABS: Bedside Glucose 382 mg/dL (70-110)
[2020-01-27] VITALS (12 sets, daily range): BP systolic 114–150; BP diastolic 75–98; PULSE 78–97; RESP 16–18; TEMP 36.7–37.2; O2SAT 94–98; BMI 24.5
[2020-01-27] MEDS: Vancomycin IV 1,000 MG/200 ML BAG 200 MG IV (00:49)
[2020-01-27] MEDS: 0.9% Saline Lock 10 ML Syringe IV ×4 (00:49→21:42)
[2020-01-27 01:09] LABS: Vancomycin, Trough Level 7.9 ug/mL (5.0-15.0)
[2020-01-27] MEDS: oxyCODONE 5 MG Tablet PO ×2 (02:22→06:36)
--- NOTE | 2020-01-27 04:32 | PCM.RX.CS ---
Consult Pharmacy has been consulted to manage selected antiobiotic: Vancomycin Type of Consult: Follow-up Suspected Infection: Skin/Soft tissue Prior Doses of Antibiotics Received/Current Regimen: Medications Vancomycin HCl 1,500 mg/ (Sodium Chloride) 530 mls @ 250 mls/hr IV Q8H PEPITO Discontinued Medications Vancomycin HCl (Vancomycin) 1,000 mg in 200 mls @ 200 mls/hr IV Q8H PEPITO Last Admin: 01/27/20 02:35 Dose: Infused Labs: Sodium 137 mmol/L (136-145) 01/26/20 05:25 Potassium 3.4 mmol/L (3.5-5.1) L 01/26/20 05:25 Chloride 102 mmol/L (98-107) 01/26/20 05:25 Carbon Dioxide 28.0 mmol/L (21.0-32.0) 01/26/20 05:25 Anion Gap 7 (5-15) 01/26/20 05:25 BUN 6 mg/dL (7-18) L 01/26/20 05:25 Creatinine 0.46 mg/dL (0.70-1.30) L 01/26/20 05:25 Est GFR (MDRD) Af Amer 253 mL/min (>60) 01/26/20 05:25 Est GFR (MDRD) Non-Af 209 mL/min (>60) 01/26/20 05:25 BUN/Creatinine Ratio 13.0 RATIO (10-20) 01/26/20 05:25 Glucose 221 mg/dL (74-106) H 01/26/20 05:25 Vancomycin Trough 7.9 ug/mL (5.0-15.0) 01/27/20 00:40 Microbiology: Microbiology 01/26/20 08:10 Wound - Leg, Left Gram Stain - Final Weight used for dosin.4 kg Goal Trough: 15-20 mcg/mL Pharmacy Plan for Drug Dosing: Trough level of 7.9 was below target range of 15-20. Increase in kidney function (SCr 0.77 down to 0.46) explains this. Vancomycin dose was increased to 1500mg q8h. Another trough will be drawn prior to 4th dose of new regimen. Pharmacy Service will continue to monitor and adjust dosing as required. Follow-Up Labs: Trough Vancomycin Labs to be done on [date and time ordered]: 01/28/20 @0830
--- NOTE | 2020-01-27 05:00 | EKG12_ITS ---
Test Reason : PRE-OP Blood Pressure : / mmHG Vent. Rate : 077 BPM Atrial Rate : 077 BPM P-R Int : 134 ms QRS Dur : 092 ms QT Int : 398 ms P-R-T Axes : 043 008 018 degrees QTc Int : 450 ms Normal sinus rhythm Septal infarct (cited on or before 04-OCT-2019) Abnormal ECG When compared with ECG of 04-OCT-2019 20:47, No significant change was found Confirmed by ALIS GUY, CHADWICK ([id number]), supervising editor trailer BILL MURRAY ([id number]) on 01/30/2020 1:22:01 PM Referred By: DR FARIAS Confirmed By:CHADWICK SNELL MD
[2020-01-27 06:46] LABS: Bedside Glucose 288 mg/dL (70-110)
[2020-01-27 07:06] LABS: Absolute Lymphocyte Count 1.51 X10^3/uL (0.83-4.51); Absolute Neutrophil Count 6.7 X10^3/uL (2.0-7.7); Basophil# 0.07 X10^3/uL; Basophil% 0.7 % (0-1); Eosinophil# 0.24 X10^3/uL; Eosinophils% 2.5 % (0-5); Hematocrit 34.4 % (40-54); Hemoglobin 10.8 g/dL (13.0-16.5); Lymphocyte # 1.51 X10^3/ul (4.0); Lymphocyte % 15.9 % (19-41); Mean Corp Hgb Conc 31.4 g/dL (32-36); Mean Corpuscular Hgb 26.3 pg (27.0-32.0); Mean Corpuscular Volume 83.7 fL (80-94); Mean Platelet Vol. 10.4 fl (6.2-12.0); Monocyte# 0.97 X10^3/uL; Monocyte% 10.2 % (0-10); NRBC Flagged by Analyzer 0 % (0-5); Neutrophil # 6.66 X10^3/uL (2.7-7.7); Neutrophil % 70.5 % (47-70); Platelet Count 204 K/mm3 (150-450); RBC Distribution Width CV 16.6 % (11.6-14.6); RBC Distribution Width SD 50.1 fl (35.1-43.9); Red Blood Count 4.11 M/mm3 (4.6-6.2); White Blood Count 9.5 K/mm3 (4.4-11.0)
[2020-01-27 07:31] LABS: Partial Thromboplast Time 29.4 Seconds (24.1-36.2)
[2020-01-27 07:33] LABS: AST(SGOT) 6 U/L (15-37); Alanine Aminotransfer ALT/SGPT 10 U/L (16-61); Albumin, Serum 2.3 g/dL (3.2-5.0); Alkaline Phosphatase 94 U/L (45-117); Anion Gap 4 (5-15); BUN 8 mg/dL (7-18); BUN/Creat Ratio 15.4 RATIO (10-20); Bilirubin, Direct 0.11 mg/dL (0.00-0.30); Calcium,Total 8.3 mg/dL (8.5-10.1); Chloride 103 mmol/L (98-107); Creatinine, Serum 0.52 mg/dL (0.70-1.30); EST Glomerular Filtration Rate 183 mL/min (>60); Est Glom Filt Rate - Afr Amer 221 mL/min (>60); Estimated Creatinine Clearance 179.39 ml/min; Globulin 3.5 g/dL (2.2-4.2); Glucose 261 mg/dL (74-106); Protein, Total 5.8 g/dL (6.4-8.2); Sodium Level 135 mmol/L (136-145)
[2020-01-27 07:40] LABS: Prothrombin Time (Protime)PT. 13.1 SECONDS (11.7-14.9)
--- NOTE | 2020-01-27 08:00 | NURSING ---
Pt is scheduled for an I&D of the left BKA later today with Dr Nickerson. will leave dressing intact at this time.
--- NOTE | 2020-01-27 08:29 | PN_ITS ---
Patient Problems: Active and Suspected Problems (Last Reviewed 10/04/19 @ 23:[address] 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 MRI confirmed underlying abscess Subjective: Chief complaint: Follow-up after admission for acute cellulitis/abscess of the below left knee amputation stump/infected wound and uncontrolled type 1 diabetes mellitus. Patient seen and examined. No acute events overnight. Still complaining of left leg stump pain but OxyIR is working to control his pain. Denied fever chills. He is afebrile, other vital signs are stable. - Physical Exam Vitals/I&O's: Vital Signs Temp Pulse Resp BP Pulse Ox 98.2 F 82 18 132/75 H 96 01/27/20 08:06 01/27/20 08:06 01/27/20 08:06 01/27/20 08:06 01/27/20 08:06 Oxygen Delivery Method Room Air Weight: 166 lb 0.129 oz Body Mass Index (BMI) 24.6 Finger Stick Blood Glucose 110 Intake and Output for Last 24 Hours 01/25/20 01/26/20 01/27/20 23:59 23:59 23:59 Intake Total 1050 / 1050 3441.92 / 3441.92 1299.75 / 1299.75 Balance 1050 / 1050 3441.92 / 3441.92 1299.75 / 1299.75 General: Alert, Oriented x3, Cooperative, No apparent distress HEENT: Atraumatic, PERRLA, EOMI, Normocephalic Oral: Moist Mucosa, No Gingival or Mucosal Lesions/ Ulcerations Neck: Supple, No JVD, Negative Carotid Bruits, Trachea Midline, Thyroid Normal Size and Texture Lungs: Clear to auscultation, Normal air movement, No rhonchi, No wheeze, No rales, Diminished Cardiovascular: Regular rate, Regular Rhythm, Normal S1, Normal S2, No murmurs, PMI Normal Abdomen: Bowel Sounds Present, Soft, Non Tender, Non-Distended, No Hepato- splenomegaly Extremities: No clubbing, No cyanosis, No edema, - - Status below left knee amputation. Amputation stump is swollen, erythematous, fluctuant, tender, hot to palpation. Skin: No rashes, Ulcer/ Wound Lymphatic: No Cervical, Supraclavicular, or Inguinal Adenopathy Neurological: Cranial nerves II-XII grossly intact, Neuro grossly intact Psych/Mental Status: Normal Affect, Appropriate, Alert and oriented to time, place, person, mood and affect Microbiology Past 72 Hours 01/26/20 08:10 Wound - Leg, Left Gram Stain - Final Laboratory Results 01/26/20 05:25: ESR 45 H 01/26/20 05:25: C-React Prot Ext Range 91.00 H 01/26/20 08:10: S.aureus Protein A PCR POSITIVE H, MRSA (PCR) Negative 01/26/20 11:24: POC Glucose 300 H 01/26/20 16:20: POC Glucose 339 H 01/26/20 21:30: POC Glucose 382 H 01/26/20 : COVID-19 ([facility]) Negative 01/27/20 00:40: Vancomycin Trough 7.9 01/27/20 06:41: POC Glucose 288 H 01/27/20 06:47: WBC 9.5, RBC 4.11 L, Hgb 10.8 L, Hct 34.4 L, MCV 83.7, MCH 26.3 L, MCHC 31.4 L, RDW Std Deviation 50.1 H, RDW Coeff of Candace 16.6 H, Plt Count 204, MPV 10.4, Immature Gran % (Auto) 0.200, Neut % (Auto) 70.5 H, Lymph % (Auto) 15.9 L, [place] % (Auto) 10.2 H, Eos % (Auto) 2.5, Baso % (Auto) 0.7, Absolute Neuts (auto) 6.7, Absolute Lymphs (auto) 1.51, Nucleated RBC % 0 01/27/20 06:47: Sodium 135 L, Potassium 4.0, Chloride 103, Carbon Dioxide 28.0, Anion Gap 4 L, BUN 8, Creatinine 0.52 L, Estim Creat Clear Calc 179.39, Est GFR (MDRD) Af Amer 221, Est GFR (MDRD) Non-Af 183, BUN/Creatinine Ratio 15.4, Glucose 261 H, Calcium 8.3 L, Total Bilirubin 0.20, Direct Bilirubin 0.11, AST 6 L, ALT 10 L, Alkaline Phosphatase 94, Total Protein 5.8 L, Albumin 2.3 L, Globulin 3.5 01/27/20 06:47: PT 13.1, INR 1.0, APTT 29.4 Clinical Impression(s) from Imaging Studies Lower Extremity MRI 01/26/20 09:44 IMPRESSION: Cellulitis with a 2.0 x 5.5 x 5.5 cm abscess anterior to the tibia but no osteomyelitis. Electronically Signed: Reese Harry MD at 13:37 EDT Tel , Service support , Current Medications Acetaminophen (Tylenol) 650 mg PO Q6H PRN PRN PRN Reason: Pain Score 1-10/Temp > 100.7 F Last Admin: 01/26/20 07:55 Dose: 650 mg Documented by: Al Hydroxide/Mg Hydroxide (Mylanta Ii) 30 ml PO Q6H PRN PRN PRN Reason: Gastric Burning Dextrose (D50w Syringe) 0 gm IV X1 PRN; Protocol PRN Reason: Hypoglycemia Enoxaparin Sodium (Lovenox) 40 mg SC DAILY [facility] Last Admin: 01/26/20 10:04 Dose: 40 mg Documented by: Gabapentin (Neurontin) 300 mg PO BIDCM [facility] Last Admin: 01/27/20 08:18 Dose: Not Given Documented by: Glucagon () 1 mg IM .X1 PRN PRN Reason: Hypoglycemia Sodium Chloride () 250 mls @ 15 mls/hr IV .[id number] PRN PRN Reason: Saline Flush Last Infusion: 01/27/20 02:36 Dose: Infused Documented by: Sodium Chloride () 250 mls @ 15 mls/hr IV .[id number] PRN PRN Reason: Additional IVPB Infusion Vancomycin IV Pharmacy to Dose (1 ea/ Sodium Chloride) 500 mls @ 250 mls/hr IV PRN PRN; Protocol PRN Reason: Rx to Dose Piperacillin Sod/Tazobactam (Sod 3.375 gm/ Sodium Chloride) 50 mls @ 12.5 mls/hr IV Q8 [facility] Last Admin: 01/27/20 06:28 Dose: 12.5 mls/hr Documented by: Vancomycin HCl 1,500 mg/ (Sodium Chloride) 530 mls @ 250 mls/hr IV Q8H [facility] Insulin Glargine (Lantus (Bkc)) 25 units SC QHS [facility] Last Admin: 01/26/20 21:35 Dose: 25 u Documented by: Insulin Human Lispro (Humalog Kwikpen (Bk)) 0 unit SC ACHS [facility]; Protocol Last Admin: 01/27/20 08:27 Dose: Not Given Documented by: Lisinopril (Zestril) 10 mg PO DAILY [facility] Last Admin: 01/26/20 10:04 Dose: 10 mg Documented by: Nutritional Formula (Kwadwo - [place] Flavor) 1 packet PO BIDCM [facility] Last Admin: 01/27/20 08:18 Dose: Not Given Documented by: Nutritional Formula (Lactose Free) (Glucerna Shake) 120 ml PO 4X/DAY [facility] Last Admin: 01/26/20 21:33 Dose: 120 ml Documented by: Ondansetron HCl (Zofran) 4 mg IV Q8H PRN PRN PRN Reason: NAUSEA/VOMITING Oxycodone HCl (Oxyir) 5 mg PO Q4H PRN PRN PRN Reason: Pain Score 4-10/10 Last Admin: 01/27/20 06:36 Dose: 5 mg Documented by: Pantoprazole Sodium (Protonix) 20 mg PO DAILY [facility] Last Admin: 01/26/20 10:04 Dose: 20 mg Documented by: Psyllium Hydrophilic Mucilloid (Metamucil) 1 packet PO DAILY PRN PRN PRN Reason: Constipation Senna/Docusate Sodium (Senokot-S, Eliza-Colace) 2 tablet PO BID PRN PRN PRN Reason: Constipation Sodium Chloride () 10 - 40 ml IV UD PRN PRN Reason: SALINE FLUSH Last Admin: 01/27/20 06:29 Dose: 10 ml Documented by: Medical Necessity - Tobacco Use Smoking Status: Current every day smoker Tobacco Use: Cigarettes Assessment/Plan All Active Problems (Last Reviewed 10/04/19 @ 23:[address] Spencer Harman MD) Cellulitis (Acute) This is a 44 years old male patient presented to the emergency room because of swelling and redness of the left below-knee amputation stump, found to have acute cellulitis of that stump with infected wounds. #1 below left knee amputation stump cellulitis/abscess/infected wounds: Osteomyelitis ruled out. MRI of the left lower extremity reviewed. Patient is on IV vancomycin and Zosyn. ESR and CRP was elevated. Patient has been afebrile. Wound culture is pending. Orthopedic surgery consulted. Patient is going for surgery for incision and drainage of the abscess today. #2 uncontrolled type 2 diabetes mellitus: Hemoglobin A1c is 12.1%. Blood sugar still fluctuating, anywhere between 200-3 100s. Patient stated that usually his blood sugar is very high and uncontrolled. He is on Lantus nightly and sliding scale. Plan to increase Lantus to 28 units nightly. #3 hypertension: Blood pressure stable, continue lisinopril. #4 peripheral neuropathy: Stable, continue gabapentin. #5 GERD: Continue Protonix. #6 DVT prophylaxis: Subcu Lovenox. This note was generated with [employer] dictation software. It may contain incorrect words, spelling, and punctuation that were not noted in checking the note before signing. Inpatient E&M: 83705 Subs Hosp L2
--- NOTE | 2020-01-27 09:15 | CON.PCM_ITS ---
Reason for Consult Date of Consultation: 01/26/20 Reason for Consultation: left BKA cellulitis abscess History of Present Illness: The patient is a 44 year old M seen and presented by physician geriatric nurse assistant met weight 01/26/2020 I do agree with his note I did see the patient this morning . Mr. Echevarria is an uncontrolled type I diabetic who has history of bilateral Charcot arthropathy who sustained a ground-level fall in his basement had a open ankle fracture early May 2019 who was subsequently had delay in initial surgery presumably for soft tissue consideration during which time he developed a severe infection in his left lower extremity resulting in sepsis and below the knee amputation following this he did develop a wound infection and he states this was about a week later did require open irrigation and debridement. He is a long-term pack per day smoker over 35 years he is disabled secondary to peripheral neuropathy from uncontrolled diabetes and gastroparesis is what he states. He states that he was homeless after this event late last year and has not had follow-up care regarding his diabetes although he admits to regular insulin use. Mr. Echevarria typically uses a walker with his temporary prosthetic device. He has not yet received his final prosthesis however this past Thursday the fourth he was using it without assistive device and felt he was getting some irritation over the anterior portion of his stump this quickly developed into erythema and swelling although he denies open wound at the time. He was brought in through the emergency department admitted to the hospital service for cellulitis where concern for abscess over skin ulcerations prompted MRI. Was started on IV vancomycin and Zosyn. Fevers chills malaise currently. Past Medical History Past Medical History (Chronic Problems): Chronic Problems (Last Reviewed 10/04/19 @ 23:[address] Spencer Harman MD) Hypertension (Chronic) DM type 1 (diabetes mellitus, type 1) (Chronic) PAD (peripheral artery disease) (Chronic) Medical History: Medical History (Last Reviewed 10/04/19 @ 23:[address] Spencer Harman MD) Diabetes mellitus E11.9 Allergies No Known Allergies Allergy (Verified 01/25/20 20:11) Home Medications: Ambulatory Orders Medication Instructions Recorded Lisinopril [Zestril] 10 mg PO DAILY 10/04/19 Pantoprazole Sodium [Protonix] 20 mg PO DAILY 10/04/19 Gabapentin [Neurontin] 300 mg PO BIDCM cap 10/07/19 Insulin Glargine,Hum.rec.anlog 25 unit SQ QHS 01/25/20 [Lantus] Insulin Lispro [Humalog KwikPen] See Protocol SUBCUT TID 01/25/20 Surgical History: - - Left below the knee amputation Psychiatric History: No pertinent psych hx Lives: Friends, - Smoking Status: Current every day smoker Tobacco Use: Cigarettes Alcohol: Occasional Drugs: Marijuana - *Family History Maternal History Items: Diabetes, Heart Disease, Pulmonary Disease Paternal History Items: Cancer - Pancreatic Review of Systems Constitutional: Denies: Chills, Fever, Malaise Neurological: Reports: Balance problems, Numbness, Tingling Patient Problems: Active and Suspected Problems (Last Reviewed 10/04/19 @ 23:[address] 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 MRI confirmed underlying abscess - Physical Exam Vitals/I&O's: Vital Signs Temp Pulse Resp BP Pulse Ox 98.2 F 82 18 132/75 H 96 01/27/20 08:06 01/27/20 08:06 01/27/20 08:06 01/27/20 08:06 01/27/20 08:06 Oxygen Delivery Method Room Air Weight: 166 lb 0.129 oz Body Mass Index (BMI) 24.6 Finger Stick Blood Glucose 110 Intake and Output for Last 24 Hours 01/25/20 01/26/20 01/27/20 23:59 23:59 23:59 Intake Total 1050 / 1050 3441.92 / 3441.92 1299.75 / 1299.75 Balance 1050 / 1050 3441.92 / 3441.92 1299.75 / 1299.75 General: Alert, Oriented x3, Cooperative, No apparent distress Extremities: - - Throat swelling of the left below the knee amputation stump with erythema which is reciting from previously marked lines there is to ulcerations to the anterior stump with mild yellow drainage fluctuance to the anterior aspect joint effusion in the knee Microbiology Past 72 Hours 01/26/20 08:10 Wound - Leg, Left Gram Stain - Final Laboratory Results 01/26/20 05:25: ESR 45 H 01/26/20 05:25: C-React Prot Ext Range 91.00 H 01/26/20 08:10: S.aureus Protein A PCR POSITIVE H, MRSA (PCR) Negative 01/26/20 11:24: POC Glucose 300 H 01/26/20 16:20: POC Glucose 339 H 01/26/20 21:30: POC Glucose 382 H 01/26/20 : COVID-19 ([facility]) Negative 01/27/20 00:40: Vancomycin Trough 7.9 01/27/20 06:41: POC Glucose 288 H 01/27/20 06:47: WBC 9.5, RBC 4.11 L, Hgb 10.8 L, Hct 34.4 L, MCV 83.7, MCH 26.3 L, MCHC 31.4 L, RDW Std Deviation 50.1 H, RDW Coeff of Candace 16.6 H, Plt Count 204, MPV 10.4, Immature Gran % (Auto) 0.200, Neut % (Auto) 70.5 H, Lymph % (Auto) 15.9 L, [place] % (Auto) 10.2 H, Eos % (Auto) 2.5, Baso % (Auto) 0.7, Ab solute Neuts (auto) 6.7, Absolute Lymphs (auto) 1.51, Nucleated RBC % 0 01/27/20 06:47: Sodium 135 L, Potassium 4.0, Chloride 103, Carbon Dioxide 28.0, Anion Gap 4 L, BUN 8, Creatinine 0.52 L, Estim Creat Clear Calc 179.39, Est GFR (MDRD) Af Amer 221, Est GFR (MDRD) Non-Af 183, BUN/Creatinine Ratio 15.4, Glucos e 261 H, Calcium 8.3 L, Total Bilirubin 0.20, Direct Bilirubin 0.11, AST 6 L, ALT 10 L, Alkaline Phosphatase 94, Total Protein 5.8 L, Albumin 2.3 L, Globulin 3.5 01/27/20 06:47: PT 13.1, INR 1.0, APTT 29.4 Current Medications Acetaminophen (Tylenol) 650 mg PO Q6H PRN PRN PRN Reason: Pain Score 1-10/Temp > 100.7 F Last Admin: 01/26/20 07:55 Dose: 650 mg Documented by: Al Hydroxide/Mg Hydroxide (Mylanta Ii) 30 ml PO Q6H PRN PRN PRN Reason: Gastric Burning Dextrose (D50w Syringe) 0 gm IV X1 PRN; Protocol PRN Reason: Hypoglycemia Enoxaparin Sodium (Lovenox) 40 mg SC DAILY [facility] Last Admin: 01/26/20 10:04 Dose: 40 mg Documented by: Gabapentin (Neurontin) 300 mg PO BIDCM [facility] Last Admin: 01/27/20 08:18 Dose: Not Given Documented by: Glucagon () 1 mg IM .X1 PRN PRN Reason: Hypoglycemia Sodium Chloride () 250 mls @ 15 mls/hr IV .[id number] PRN PRN Reason: Saline Flush Last Infusion: 01/27/20 02:36 Dose: Infused Documented by: Sodium Chloride () 250 mls @ 15 mls/hr IV .[id number] PRN PRN Reason: Additional IVPB Infusion Vancomycin IV Pharmacy to Dose (1 ea/ Sodium Chloride) 500 mls @ 250 mls/hr IV PRN PRN; Protocol PRN Reason: Rx to Dose Piperacillin Sod/Tazobactam (Sod 3.375 gm/ Sodium Chloride) 50 mls @ 12.5 mls/hr IV Q8 [facility] Last Admin: 01/27/20 06:28 Dose: 12.5 mls/hr Documented by: Vancomycin HCl 1,500 mg/ (Sodium Chloride) 530 mls @ 250 mls/hr IV Q8H [facility] Insulin Glargine (Lantus (Bkc)) 28 units SC QHS [facility] Insulin Human Lispro (Humalog Kwikpen (Bkc)) 0 unit SC ACHS [facility]; Protocol Last Admin: 01/27/20 08:27 Dose: Not Given Documented by: Lisinopril (Zestril) 10 mg PO DAILY [facility] Last Admin: 01/26/20 10:04 Dose: 10 mg Documented by: Nutritional Formula (Kwadwo - [place] Flavor) 1 packet PO BIDCM [facility] Last Admin: 01/27/20 08:18 Dose: Not Given Documented by: Nutritional Formula (Lactose Free) (Glucerna Shake) 120 ml PO 4X/DAY [facility] Last Admin: 01/26/20 21:33 Dose: 120 ml Documented by: Ondansetron HCl (Zofran) 4 mg IV Q8H PRN PRN PRN Reason: NAUSEA/VOMITING Oxycodone HCl (Oxyir) 5 mg PO Q4H PRN PRN PRN Reason: Pain Score 4-10/10 Last Admin: 01/27/20 06:36 Dose: 5 mg Documented by: Pantoprazole Sodium (Protonix) 20 mg PO DAILY [facility] Last Admin: 01/26/20 10:04 Dose: 20 mg Documented by: Psyllium Hydrophilic Mucilloid (Metamucil) 1 packet PO DAILY PRN PRN PRN Reason: Constipation Senna/Docusate Sodium (Senokot-S, Eliza-Colace) 2 tablet PO BID PRN PRN PRN Reason: Constipation Sodium Chloride () 10 - 40 ml IV UD PRN PRN Reason: SALINE FLUSH Last Admin: 01/27/20 06:29 Dose: 10 ml Documented by: Assessment/Plan All Active Problems (Last Reviewed 10/04/19 @ 23:[address] Spencer Harman MD) Cellulitis (Acute) Left lower extremity below the knee amputation 07/08/2019 Uncontrolled type I diabetic History of severe infection with sepsis Acute abscess of below the knee amputation stump left Plan for incision and drainage and evaluation for deeper infection Will need antibiotics per infectious disease cultures pending Will need better glycemic control to avoid further amputations/ infections Discussed tobacco cessation which also increases his risks
[2020-01-27] MEDS: Morphine 2 MG/ML Syringe IV ×2 (11:50→18:22)
--- NOTE | 2020-01-27 12:29 | CON.PCM_ITS ---
Reason for Consult: Diabetic with a left BKA stump infection/abscess Consulted by: Dr. Gill History of Present Illness: The patient is a 44 year old M [] This a very pleasant 44-year-old gentleman with longstanding history of insulin acquired diabetes mellitus complicated by peripheral neuropathy, Charcot foot, gastroparesis who underwent a left BKA in May 2019. More recently he developed swelling and erythema of the left stump and was subsequently admitted. Patient underwent imaging studies including MRI of the left leg that showed soft tissue abscess. Wound culture from the left BKA stump is growing Staphylococcus aureus with sensitivities pending. Patient is currently on pare nteral vancomycin plus Zosyn. No fevers or chills no systemic complaints. - Medical History Past Medical History (Chronic Problems): Chronic Problems (Last Reviewed 10/04/19 @ 23:[address] Spencer Harman MD) Hypertension (Chronic) DM type 1 (diabetes mellitus, type 1) (Chronic) PAD (peripheral artery disease) (Chronic) Allergies/Adverse Reactions: Allergies No Known Allergies Allergy (Verified 01/25/20 20:11) Home Medications: Ambulatory Orders Medication Instructions Recorded Lisinopril [Zestril] 10 mg PO DAILY 10/04/19 Pantoprazole Sodium [Protonix] 20 mg PO DAILY 10/04/19 Gabapentin [Neurontin] 300 mg PO BIDCM cap 10/07/19 Insulin Glargine,Hum.rec.anlog 25 unit SQ QHS 01/25/20 [Lantus] Insulin Lispro [Humalog KwikPen] See Protocol SUBCUT TID 01/25/20 Vital Signs Temp Pulse Resp BP Pulse Ox 98.1 F 78 18 149/89 H 98 01/27/20 11:59 01/27/20 11:59 01/27/20 11:59 01/27/20 11:59 01/27/20 11:59 Oxygen Delivery Method Room Air Weight: 75.3 kg Body Mass Index (BMI) 24.5 Finger Stick Blood Glucose 110 On exam he is alert does not appear toxic lungs are clear heart exam S1-S2 abdomen soft nontender. Left BKA stump dressings are in place. Review pictures obtained by wound care nurse. Microbiology Past 72 Hours 01/26/20 08:10 Gram Stain - Final Wound - Leg, Left Wound Culture - Preliminary Staphylococcus aureus Laboratory Tests Past 24 Hrs 01/26/20 01/26/20 01/27/20 08:10 Unknown 00:40 WBC RBC Hgb Hct MCV MCH MCHC RDW Std Deviation RDW Coeff of Candace Plt Count MPV Immature Gran % (Auto) Neut % (Auto) Lymph % (Auto) [place] % (Auto) Eos % (Auto) Baso % (Auto) Absolute Neuts (auto) Absolute Lymphs (auto) Nucleated RBC % PT INR APTT Sodium Potassium Chloride Carbon Dioxide Anion Gap BUN Creatinine Estim Creat Clear Calc Est GFR (MDRD) Af Amer Est GFR (MDRD) Non-Af BUN/Creatinine Ratio Glucose Calcium Total Bilirubin Direct Bilirubin AST ALT Alkaline Phosphatase Total Protein Albumin Globulin Vancomycin Trough 7.9 COVID-19 ([facility]) Negative S.aureus Protein A PCR POSITIVE H MRSA (PCR) Negative 01/27/20 01/27/20 01/27/20 06:47 06:47 06:47 WBC 9.5 RBC 4.11 L Hgb 10.8 L Hct 34.4 L MCV 83.7 MCH 26.3 L MCHC 31.4 L RDW Std Deviation 50.1 H RDW Coeff of Candace 16.6 H Plt Count 204 MPV 10.4 Immature Gran % (Auto) 0.200 Neut % (Auto) 70.5 H Lymph % (Auto) 15.9 L [place] % (Auto) 10.2 H Eos % (Auto) 2.5 Baso % (Auto) 0.7 Absolute Neuts (auto) 6.7 Absolute Lymphs (auto) 1.51 Nucleated RBC % 0 PT 13.1 INR 1.0 APTT 29.4 Sodium 135 L Potassium 4.0 Chloride 103 Carbon Dioxide 28.0 Anion Gap 4 L BUN 8 Creatinine 0.52 L Estim Creat Clear Calc 179.39 Est GFR (MDRD) Af Amer 221 Est GFR (MDRD) Non-Af 183 BUN/Creatinine Ratio 15.4 Glucose 261 H Calcium 8.3 L Total Bilirubin 0.20 Direct Bilirubin 0.11 AST 6 L ALT 10 L Alkaline Phosphatase 94 Total Protein 5.8 L Albumin 2.3 L Globulin 3.5 Vancomycin Trough COVID-19 ([facility]) S.aureus Protein A PCR MRSA (PCR) - Other Studies Radiology: [] Other Studies: [] Route of nutrition/ use of supplements: [] Nutritional Intake: [] IV Site: [] Brady Catheter: [] - Assessment/Plan Antibiotics: [] Assessment/Plan: [] Active and Suspected Problems (Last Reviewed 10/04/19 @ 23:[address] 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 MRI confirmed underlying abscess Soft tissue abscess of the left BKA stump site. Staphylococcus aureus isolated. Currently on parenteral antibiotic therapy for vancomycin plus Zosyn. If the pathogen is MRSA then I will continue vancomycin discontinued Zosyn. If the pathogen is MSSA, would discontinue vancomycin and Zosyn and treat with Ancef 2 g IV every 8 hours. Hopefully will have the sensitivities of the pathogen tomorrow. Patient is scheduled for surgical debridement of the left BKA stump this afternoon.
[2020-01-27 12:30] LABS: Bedside Glucose 171 mg/dL (70-110)
--- NOTE | 2020-01-27 12:47 | NURSING ---
PT TO OR VIA BED
--- NOTE | 2020-01-27 13:23 | CASEMGMT ---
Addendum entered by Hannah Cisneros 01/27/20 14:02: Lucero from [facility] called, she states that pt threatened to kill himself multiple times, threatened to call the state also. Pt was sent to [facility], denied any suicidal thoughts and was sent back to [facility]. He also refused to pay his patient liability. They will likely not take him back, but Lucero will let SW know for certain. NOAH Pope Addendum entered by Hannah Cisneros 01/27/20 13:46: SW faxed referral to [facility], message left for Lucero is admissions. SW gave her this SW's number as well as SW Naomi Garner' number, as she will be here on Thursday. NOAH Pope Original Note: SW met w/pt just prior to surgery, pt familiar w/SW from prior admission. SW spoke w/pt about how managing, discharge plan. PCP: Dr. Winkler Insurance/Prescription Coverage: [facility] Preferred Pharmacy: Not sure as recently moved. Has used [facility] in [place] recently LNOK: Father, Aunt, children aged 18 and 15 Current Living situation: At [facility], [facility] of [facility]. Pt states is supposed to be accessible but is not very accessible, the doors are heavy Prior level of function/DME/SNF/home care: Pt has cane, walker, prosthesis, wheelchair. Pt has been living home alone, has [facility]. Pt has been to [facility] and more recently [facility]. Mental Health: Pt still struggling with stressors and health issues. Pt has a peer counselor, Emily, at [facility], who he calls for support. Pt denies being suicidal at this time. Substance abuse: Pt admits to still smoking marijuana, and had a beer recently. Pt had one relapse recently and was upset with himself about it. SW offered support to pt. LW/POA: Pt would like to put his brother as POA, would like to complete the paperwork here if possible, SW will pass this on to other SW covering the floor, as pt is about to go to surgery and there is not enough time to complete it now. Plan: SW gave pt list of nursing homes in network w/his insurance with the Medicare rating. Pt would like referral sent to [facility]. SW explained will start the referral process today. Pt going to surgery today, BASILIO will call [facility] shortly and start referral. NOAH Pope
--- NOTE | 2020-01-27 14:45 | PCM.OPRPT ---
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 Procedure: Patient was met in the preoperative holding area once again the operative extremity was identified by both patient and physician was marked patient was met by anesthesia and transferred to the operating room on a wheeled cart and transferred to operating table in the supine position anesthesia was started a well-padded tourniquet was placed in the left upper thigh patient was prepped and draped in the usual sterile fashion a timeout was called to ensure the proper patient procedure extremity being contemplated . the tourniquet was inflated without the use of an Esmarch the extremity was elevated prior to this. The wound was evaluated the lateral abscess was open with drainage this was along the previous scar of his BKA the medial abscess was closed however there was a superficial ulceration just medial to where the abscess was this ulceration was not full-thickness it did have some granulation tissue which was debrided a stab incision was made into the abscess cultures were taken of both the medial and lateral abscess aerobic and anaerobic the there was immediate gush of her seropurulent fluid , it was evacuated was thoroughly irrigated a curette was used to debride the soft tissue in the area and to evaluate the extent of the abscess and undermined approximately 4 cm medially and 4 cm proximally from the incision. once thorough irrigation and debridement of both wounds were performed there was noted to be a sinus tract between the 2 wounds that was present with Pulsavac irrigation after several liters of irrigation were used a Betadine rinse diluted was allowed to sit within the wound followed by several more liters of irrigation iodoform packing quarter-inch was then placed within both wounds the wounds were reapproximated gently with 3-0 nylon vertical mattress stitches Xeroform was placed over the ulceration wounds as well as the incisions dressing was applied to form a 4 x 4 ABD web roll sorry Torsten and an Derek wrap patient tolerated procedure well all counts were correct no intraoperative complications he can resume anticoagulation 12 hours postop and will continue his antibiotic regimen per infectious disease
[2020-01-27 14:51] LABS: Bedside Glucose 144 mg/dL (70-110)
[2020-01-27] MEDS: Lactated Ringers 1,000 ML 100 ML IV ×2 (15:32→18:02)
[2020-01-27 16:25] LABS: Bedside Glucose 139 mg/dL (70-110)
[2020-01-27] MEDS: Gabapentin 300 MG Capsule PO (17:53)
[2020-01-27] MEDS: Glucerna Shake 120 ML LIQUID PO ×2 (18:14→21:36)
[2020-01-27] MEDS: Insulin Lispro 100 UNIT/ML INSULN.PEN SC (21:37)
[2020-01-27 22:00] LABS: Bedside Glucose 347 mg/dL (70-110)
[2020-01-28 00:32] VITALS: BP 132/84; PULSE 88; RESP 17; TEMP 37; O2SAT 96
[2020-01-28] MEDS: oxyCODONE 5 MG Tablet PO ×4 (00:48→21:37)
[2020-01-28] MEDS: Lactated Ringers 1,000 ML 100 ML IV (03:07)
[2020-01-28 03:24] VITALS: BP 140/90; PULSE 85; RESP 18; TEMP 36.8; O2SAT 95
[2020-01-28] MEDS: 0.9% Saline Lock 10 ML Syringe IV ×2 (06:53→17:32)
[2020-01-28 07:05] LABS: Bedside Glucose 195 mg/dL (70-110)
[2020-01-28 07:20] VITALS: O2SAT 98
--- NOTE | 2020-01-28 08:01 | PCM.PROGNOTE ---
Patient Problems: Active and Suspected Problems (Last Reviewed 10/04/19 @ 23:[address] 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 MRI confirmed underlying abscess Subjective: Chief complaint: Follow-up after admission for acute cellulitis/abscess of the below left knee amputation stump/infected wound status post incision and drainage, also found to have uncontrolled type 1 diabetes mellitus. Patient seen and examined. No acute events overnight. Left leg pain is manageable with pain medication. He just requested a pain pill at this time. Denied fever or chills. His vital signs are stable. - Physical Exam Vitals/I&O's: Vital Signs Temp Pulse Resp BP Pulse Ox 98.2 F 85 18 140/90 H 95 01/28/20 03:24 01/28/20 03:24 01/28/20 03:24 01/28/20 03:24 01/28/20 03:24 Oxygen Delivery Method Room Air Weight: 165 lb 12.602 oz Body Mass Index (BMI) 24.5 Finger Stick Blood Glucose 110 Intake and Output for Last 24 Hours 01/26/20 01/27/20 01/28/20 23:59 23:59 23:59 Intake Total 3441.92 / 3441.92 3749.75 / 3749.75 2288.33 / 2288.33 Output Total 800 / 800 1250 / 1250 Balance 3441.92 / 3441.92 2949.75 / 2949.75 1038.33 / 1038.33 General: Alert, Oriented x3, Cooperative, No apparent distress HEENT: Atraumatic, PERRLA, EOMI, Normocephalic Oral: Moist Mucosa, No Gingival or Mucosal Lesions/ Ulcerations Neck: Supple, No JVD, Negative Carotid Bruits, Trachea Midline, Thyroid Normal Size and Texture Lungs: Clear to auscultation, Normal air movement, No rhonchi, No wheeze, No rales Cardiovascular: Regular rate, Regular Rhythm, Normal S1, Normal S2, PMI Normal Abdomen: Bowel Sounds Present, Soft, Non Tender, Non-Distended, No Hepato-splenomegaly Extremities: No clubbing, No cyanosis, No edema, - - Status below left knee amputation, stump is dressed. Skin: No rashes, Ulcer/ Wound Lymphatic: No Cervical, Supraclavicular, or Inguinal Adenopathy Neurological: Cranial nerves II-XII grossly intact, Neuro grossly intact Psych/Mental Status: Normal Affect, Appropriate, Alert and oriented to time, place, person, mood and affect Microbiology Past 72 Hours 01/26/20 08:10 Wound - Leg, Left Gram Stain - Final 01/26/20 08:10 Wound - Leg, Left Wound Culture - Preliminary Staphylococcus aureus Laboratory Results 01/27/20 12:04: POC Glucose 171 H 01/27/20 14:47: POC Glucose 144 H 01/27/20 16:21: POC Glucose 139 H 01/27/20 21:35: POC Glucose 347 H 01/28/20 06:59: POC Glucose 195 H Microbiology 01/26/20 08:10 Wound - Leg, Left Gram Stain - Final 01/26/20 08:10 Wound - Leg, Left Wound Culture - Preliminary Staphylococcus aureus Current Medications Acetaminophen (Tylenol) 650 mg PO Q6H PRN PRN PRN Reason: Pain Score 1-10/Temp > 100.7 F Last Admin: 01/26/20 07:55 Dose: 650 mg Documented by: Al Hydroxide/Mg Hydroxide (Mylanta Ii) 30 ml PO Q6H PRN PRN PRN Reason: Gastric Burning Dextrose (D50w Syringe) 0 gm IV X1 PRN; Protocol PRN Reason: Hypoglycemia Enoxaparin Sodium (Lovenox) 40 mg SC DAILY [facility] Last Admin: 01/27/20 12:19 Dose: Not Given Documented by: Gabapentin (Neurontin) 300 mg PO BIDCM [facility] Last Admin: 01/27/20 17:53 Dose: 300 mg Documented by: Glucagon () 1 mg IM .X1 PRN PRN Reason: Hypoglycemia Sodium Chloride () 250 mls @ 15 mls/hr IV .[id number] PRN PRN Reason: Saline Flush Last Infusion: 01/27/20 02:36 Dose: Infused Documented by: Sodium Chloride () 250 mls @ 15 mls/hr IV .[id number] PRN PRN Reason: Additional IVPB Infusion Vancomycin IV Pharmacy to Dose (1 ea/ Sodium Chloride) 500 mls @ 250 mls/hr IV PRN PRN; Protocol PRN Reason: Rx to Dose Piperacillin Sod/Tazobactam (Sod 3.375 gm/ Sodium Chloride) 50 mls @ 12.5 mls/hr IV Q8 [facility] Last Admin: 01/28/20 06:53 Dose: 12.5 mls/hr Documented by: Vancomycin HCl 1,500 mg/ (Sodium Chloride) 530 mls @ 250 mls/hr IV Q8H [facility] Last Infusion: 01/28/20 02:50 Dose: Infused Documented by: Lactated Ringer's () 1,000 mls @ 100 mls/hr IV .Q10H [facility] Last Admin: 01/28/20 03:07 Dose: 100 mls/hr Documented by: Insulin Glargine (Lantus ([facility])) 28 units SC QHS [facility] Last Admin: 01/27/20 21:38 Dose: 28 u Documented by: Insulin Human Lispro (Humalog Kwikpen ([facility])) 0 unit SC ACHS [facility]; Protocol Last Admin: 01/28/20 07:00 Dose: Not Given Documented by: Lisinopril (Zestril) 10 mg PO DAILY [facility] Last Admin: 01/27/20 12:19 Dose: Not Given Documented by: Morphine Sulfate () 2 mg IV Q4H PRN PRN PRN Reason: Pain Score 6-10/10 Last Admin: 01/27/20 18:22 Dose: 2 mg Documented by: Nutritional Formula (Kwadwo - [place] Flavor) 1 packet PO BIDCM [facility] Last Admin: 01/27/20 17:53 Dose: 1 packet Documented by: Nutritional Formula (Lactose Free) (Glucerna Shake) 120 ml PO 4X/DAY [facility] Last Admin: 01/27/20 21:36 Dose: 120 ml Documented by: Ondansetron HCl (Zofran) 4 mg IV Q8H PRN PRN PRN Reason: NAUSEA/VOMITING Oxycodone HCl (Oxyir) 5 mg PO Q4H PRN PRN PRN Reason: Pain Score 4-10/10 Last Admin: 01/28/20 07:43 Dose: 5 mg Documented by: Pantoprazole Sodium (Protonix) 20 mg PO DAILY [facility] Last Admin: 01/27/20 12:19 Dose: Not Given Documented by: Psyllium Hydrophilic Mucilloid (Metamucil) 1 packet PO DAILY PRN PRN PRN Reason: Constipation Senna/Docusate Sodium (Senokot-S, Eliza-Colace) 2 tablet PO BID PRN PRN PRN Reason: Constipation Sodium Chloride () 10 - 40 ml IV UD PRN PRN Reason: SALINE FLUSH Last Admin: 01/28/20 06:53 Dose: 10 ml Documented by: Medical Necessity - Tobacco Use Smoking Status: Current every day smoker Tobacco Use: Cigarettes Assessment/Plan All Active Problems (Last Reviewed 10/04/19 @ 23:[address] Spencer Harman MD) Cellulitis (Acute) This is a 44 years old male patient presented to the emergency room because of swelling and redness of the left below-knee amputation stump, found to have acute cellulitis/abscess of that stump with infected wounds. #1 below left knee amputation stump cellulitis/abscess/infected wounds: Osteomyelitis ruled out. Status post incision and drainage, postoperative day 1. Remained on IV vancomycin and Zosyn. Vital signs are stable, afebrile. Initial wound culture revealed staph office, final is pending. Culture of the surgical specimen is pending. Orthopedic surgery and infectious disease are on the case. Plan to continue same treatment, repeat CBC and BMP tomorrow morning. #2 uncontrolled type 2 diabetes mellitus: Hemoglobin A1c is 12.1%. Dose of Lantus adjusted yesterday, remains on sliding scale. Blood sugar is getting better but still with high variation. Plan to keep monitoring. #3 hypertension: Blood pressure stable, continue lisinopril. #4 peripheral neuropathy: Stable, continue gabapentin. #5 GERD: Continue Protonix. #6 DVT prophylaxis: Subcu Lovenox. This note was generated with [facility] dictation software. It may contain incorrect words, spelling, and punctuation that were not noted in checking the note before signing. Inpatient E&M: 62557 Subs Hosp L2
[2020-01-28] MEDS: Gabapentin 300 MG Capsule PO ×2 (08:40→17:31)
[2020-01-28] MEDS: Enoxaparin 40 MG/0.4 ML Syringe SC (08:40)
[2020-01-28] MEDS: Pantoprazole Sodium 20 MG Tablet PO (08:47)
[2020-01-28] MEDS: Lisinopril 10 MG Tablet PO (08:47)
[2020-01-28 08:50] VITALS: BP 137/77; PULSE 91; RESP 18; TEMP 36.9; O2SAT 93
[2020-01-28] MEDS: Senna/Docusate Sodium 1 Tablet 2 TABLET PO (09:05)
[2020-01-28 09:35] LABS: Vancomycin, Trough Level 14.4 ug/mL (5.0-15.0)
--- NOTE | 2020-01-28 09:47 | NURSING ---
Aware that Vanco Trough is 14.4 this morning. Vancomycin IVPB hung and infusing.
[2020-01-28] MEDS: Insulin Lispro 100 UNIT/ML INSULN.PEN SC ×3 (11:06→21:29)
[2020-01-28 11:11] LABS: Bedside Glucose 324 mg/dL (70-110)
--- NOTE | 2020-01-28 12:00 | PCM.RX.CS ---
Consult Pharmacy has been consulted to manage selected antiobiotic: Vancomycin Type of Consult: Follow-up Suspected Infection: Skin/Soft tissue Labs: Sodium 135 mmol/L (136-145) L 01/27/20 06:47 Potassium 4.0 mmol/L (3.5-5.1) 01/27/20 06:47 Chloride 103 mmol/L (98-107) 01/27/20 06:47 Carbon Dioxide 28.0 mmol/L (21.0-32.0) 01/27/20 06:47 Anion Gap 4 (5-15) L 01/27/20 06:47 BUN 8 mg/dL (7-18) 01/27/20 06:47 Creatinine 0.52 mg/dL (0.70-1.30) L 01/27/20 06:47 Est GFR (MDRD) Af Amer 221 mL/min (>60) 01/27/20 06:47 Est GFR (MDRD) Non-Af 183 mL/min (>60) 01/27/20 06:47 BUN/Creatinine Ratio 15.4 RATIO (-) 01/27/20 06:47 Glucose 261 mg/dL (74-106) H 01/27/20 06:47 Vancomycin Trough 14.4 ug/mL (5.0-15.0) 01/28/20 08:35 Microbiology: Microbiology 01/27/20 14:26 Other - Other Gram Stain - Final 01/27/20 14:26 Other - Other Wound Culture - Preliminary Staphylococcus aureus 01/27/20 14:25 Other - Other Gram Stain - Final 01/27/20 14:25 Other - Other Wound Culture - Preliminary Staphylococcus aureus 01/26/20 08:10 Wound - Leg, Left Gram Stain - Final 01/26/20 08:10 Wound - Leg, Left Wound Culture - Preliminary Staphylococcus aureus Estimated Creatinine Clearance: 179 Goal Trough: 15-20 mcg/mL Pharmacy Plan for Drug Dosing: VANCOMYCIN LEVEL RECEIVED Current Vancomycin Dose: 1500MG Q8H Number of Doses Received: 3 OF 1500MG, 3 OF 1000MG (ER DOSE OF 1500MG 01/25) Vancomycin Level: 14.4 MG/DL Hours Since Last Dose: 8 Renal Function: 0.52 (CRCL 180) Renal Function Trend: STABLE Vancomycin Plan/Comments: CONTINUE CURRENT DOSING. PATIENT MAY NOT BE AT STEADY STATE AFTER ONLY 3 DOSES AND TROUGH HAS NEARLY DOUBLED. RE-CHECK TROUGH TOMORROW TO ASSESS LEVEL AT STEADY STATE. Pharmacy Service will continue to monitor and adjust dosing as required. Labs to be done on [date and time ordered]: 01/29/20 @ 0768
--- NOTE | 2020-01-28 13:10 | NURSING ---
Pt irritated. Has listened to his IVAC beep all day. Pt states he doesn't move his arms and his Iv still beeps. This nurse offered to change iv to a different area so it doesnt beep b/c iv is in his rt and lt ac. pt refused. Just wants to beeping to stop and doesnt want to wait for 30min to turn it off. Pt mad that EMT DISPATCHER comes in and doesnt do anything about it. This nurse explained to pt that prison psychiatrist's are unable to touch the IVAC. This nurse informed pt that this nurse will talk with prison psychiatrist's and if beeping and this nurse busy to find charge nurse to help fix the beeping ivac
[2020-01-28] MEDS: Glucerna Shake 120 ML LIQUID PO ×3 (14:59→21:30)
[2020-01-28 15:06] VITALS: BP 150/87; PULSE 83; RESP 18; TEMP 37.2; O2SAT 96
[2020-01-28] MEDS: Psyllium 1 PACKET PO (17:27)
[2020-01-28 17:41] LABS: Bedside Glucose 362 mg/dL (70-110)
[2020-01-28 21:00] VITALS: BP 142/83; PULSE 82; RESP 16; TEMP 37.3; O2SAT 97
[2020-01-28 21:41] LABS: Bedside Glucose 363 mg/dL (70-110)
[2020-01-29] MEDS: oxyCODONE 5 MG Tablet PO ×3 (02:10→12:49)
[2020-01-29 02:49] VITALS: BP 128/78; PULSE 73; RESP 16; TEMP 36.7; O2SAT 97
[2020-01-29] MEDS: Insulin Lispro 100 UNIT/ML INSULN.PEN SC ×4 (06:07→21:47)
[2020-01-29 06:16] LABS: Bedside Glucose 215 mg/dL (70-110)
[2020-01-29 06:21] LABS: Absolute Lymphocyte Count 1.46 X10^3/uL (0.83-4.51); Absolute Neutrophil Count 3.2 X10^3/uL (2.0-7.7); Basophil# 0.05 X10^3/uL; Basophil% 0.9 % (0-1); Eosinophil# 0.25 X10^3/uL; Eosinophils% 4.4 % (0-5); Hematocrit 34.4 % (40-54); Hemoglobin 10.7 g/dL (13.0-16.5); Lymphocyte # 1.46 X10^3/ul (4.0); Lymphocyte % 25.6 % (19-41); Mean Corp Hgb Conc 31.1 g/dL (32-36); Mean Corpuscular Hgb 25.8 pg (27.0-32.0); Mean Corpuscular Volume 83.1 fL (80-94); Mean Platelet Vol. 10.1 fl (6.2-12.0); Monocyte# 0.72 X10^3/uL; Monocyte% 12.6 % (0-10); NRBC Flagged by Analyzer 0 % (0-5); Neutrophil # 3.19 X10^3/uL (2.7-7.7); Platelet Count 266 K/mm3 (150-450); RBC Distribution Width CV 16.1 % (11.6-14.6); RBC Distribution Width SD 49.1 fl (35.1-43.9); Red Blood Count 4.14 M/mm3 (4.6-6.2); White Blood Count 5.7 K/mm3 (4.4-11.0)
[2020-01-29 06:52] LABS: Anion Gap 5 (5-15); BUN 9 mg/dL (7-18); BUN/Creat Ratio 17.5 RATIO (10-20); Calcium,Total 8.3 mg/dL (8.5-10.1); Chloride 102 mmol/L (98-107); Creatinine, Serum 0.51 mg/dL (0.70-1.30); EST Glomerular Filtration Rate 185 mL/min (>60); Est Glom Filt Rate - Afr Amer 223 mL/min (>60); Estimated Creatinine Clearance 182.91 ml/min; Glucose 234 mg/dL (74-106); Potassium 3.9 mmol/L (3.5-5.1); Sodium Level 136 mmol/L (136-145)
[2020-01-29] MEDS: HYDROmorphone 0.5 MG/0.5 ML SYRINGE IV (07:06)
--- NOTE | 2020-01-29 07:29 | PCM.PN.ORT ---
Patient Problems: Active and Suspected Problems (Last Reviewed 10/04/19 @ 23:[address] 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 MRI confirmed underlying abscess Subjective: Patient doing well. Pain controlled with current regimen denies fevers or chills malaise. Complaint of constipation but passing gas has received medication for this and does not wish to receive any more currently. - Physical Exam Vitals/I&O's: Vital Signs Temp Pulse Resp BP Pulse Ox 98.1 F 73 16 128/78 H 97 01/29/20 02:49 01/29/20 02:49 01/29/20 02:49 01/29/20 02:49 01/29/20 02:49 Oxygen Delivery Method Room Air Weight: 167 lb 12.348 oz Body Mass Index (BMI) 24.5 Finger Stick Blood Glucose 110 Intake and Output for Last 24 Hours 01/27/20 01/28/20 01/29/20 23:59 23:59 23:59 Intake Total 3749.75 / 3749.75 4984.91 / 6024.91 2019 / 2019 Output Total 800 / 800 3100 / 4575 2225 / 2225 Balance 2949.75 / 2949.75 1884.91 / 1449.91 -205 / -205 General: Alert, Oriented x3, Cooperative, No apparent distress Extremities: - - Dressing was removed. Packing was removed. Stump looks improved erythema intensity decreased swelling decreased serosanguineous drainage appropriate no purulence. Microbiology Past 72 Hours 01/27/20 14:26 Other - Other Gram Stain - Final 01/27/20 14:26 Other - Other Wound Culture - Preliminary Staphylococcus aureus 01/27/20 14:25 Other - Other Gram Stain - Final 01/27/20 14:25 Other - Other Wound Culture - Preliminary Staphylococcus aureus 01/26/20 08:10 Wound - Leg, Left Gram Stain - Final 01/26/20 08:10 Wound - Leg, Left Wound Culture - Preliminary Staphylococcus aureus Laboratory Results 01/28/20 08:35: Vancomycin Trough 14.4 01/28/20 11:06: POC Glucose 324 H 01/28/20 17:26: POC Glucose 362 H 01/28/20 21:28: POC Glucose 363 H 01/29/20 05:45: WBC 5.7, RBC 4.14 L, Hgb 10.7 L, Hct 34.4 L, MCV 83.1, MCH 25.8 L, MCHC 31.1 L, RDW Std Deviation 49.1 H, RDW Coeff of Candace 16.1 H, Plt Count 266, MPV 10.1, Immature Gran % (Auto) 0.500, Neut % (Auto) 56.0, Lymph % (Auto) 25.6, [place] % (Auto) 12.6 H, Eos % (Auto) 4.4, Baso % (Auto) 0.9, Absolute Neuts (auto) 3.2, Absolute Lymphs (auto) 1.46, Nucleated RBC % 0 01/29/20 05:45: Sodium 136, Potassium 3.9, Chloride 102, Carbon Dioxide 29.0, Anion Gap 5, BUN 9, Creatinine 0.51 L, Estim Creat Clear Calc 182.91, Est GFR (MDRD) Af Amer 223, Est GFR (MDRD) Non-Af 185, BUN/Creatinine Ratio 17.5, Glucose 234 H, Calcium 8.3 L 01/29/20 06:07: POC Glucose 215 H Current Medications Acetaminophen (Tylenol) 650 mg PO Q6H PRN PRN PRN Reason: Pain Score 1-10/Temp > 100.7 F Last Admin: 01/26/20 07:55 Dose: 650 mg Documented by: Al Hydroxide/Mg Hydroxide (Mylanta Ii) 30 ml PO Q6H PRN PRN PRN Reason: Gastric Burning Dextrose (D50w Syringe) 0 gm IV X1 PRN; Protocol PRN Reason: Hypoglycemia Enoxaparin Sodium (Lovenox) 40 mg SC DAILY [facility] Last Admin: 01/28/20 08:40 Dose: 40 mg Documented by: Gabapentin (Neurontin) 300 mg PO BIDCM [facility] Last Admin: 01/28/20 17:31 Dose: 300 mg Documented by: Glucagon () 1 mg IM .X1 PRN PRN Reason: Hypoglycemia Sodium Chloride () 250 mls @ 15 mls/hr IV .[id number] PRN PRN Reason: Saline Flush Last Infusion: 01/28/20 14:56 Dose: 0 mls/hr Documented by: Sodium Chloride () 250 mls @ 15 mls/hr IV .[id number] PRN PRN Reason: Additional IVPB Infusion Vancomycin IV Pharmacy to Dose (1 ea/ Sodium Chloride) 500 mls @ 250 mls/hr IV PRN PRN; Protocol PRN Reason: Rx to Dose Piperacillin Sod/Tazobactam (Sod 3.375 gm/ Sodium Chloride) 50 mls @ 12.5 mls/hr IV Q8 [facility] Last Admin: 01/29/20 05:18 Dose: 12.5 mls/hr Documented by: Vancomycin HCl 1,500 mg/ (Sodium Chloride) 530 mls @ 250 mls/hr IV Q8H [facility] Last Infusion: 01/29/20 04:05 Dose: Infused Documented by: Insulin Glargine (Lantus ([facility])) 28 units SC QHS [facility] Last Admin: 01/28/20 21:30 Dose: 28 u Documented by: Insulin Human Lispro (Humalog Kwikpen ([facility])) 0 unit SC ACHS [facility]; Protocol Last Admin: 01/29/20 06:07 Dose: 2 units Documented by: Lisinopril (Zestril) 10 mg PO DAILY [facility] Last Admin: 01/28/20 08:47 Dose: 10 mg Documented by: Morphine Sulfate () 2 mg IV Q4H PRN PRN PRN Reason: Pain Score 6-10/10 Last Admin: 01/27/20 18:22 Dose: 2 mg Documented by: Nutritional Formula (Kwadwo - [place] Flavor) 1 packet PO BIDCM [facility] Last Admin: 01/28/20 17:31 Dose: Not Given Documented by: Nutritional Formula (Lactose Free) (Glucerna Shake) 120 ml PO 4X/DAY [facility] Last Admin: 01/28/20 21:30 Dose: 120 ml Documented by: Ondansetron HCl (Zofran) 4 mg IV Q8H PRN PRN PRN Reason: NAUSEA/VOMITING Oxycodone HCl (Oxyir) 5 mg PO Q4H PRN PRN PRN Reason: Pain Score 4-10/10 Last Admin: 01/29/20 06:05 Dose: 5 mg Documented by: Pantoprazole Sodium (Protonix) 20 mg PO DAILY [facility] Last Admin: 01/28/20 08:47 Dose: 20 mg Documented by: Psyllium Hydrophilic Mucilloid (Metamucil) 1 packet PO DAILY PRN PRN PRN Reason: Constipation Last Admin: 01/28/20 17:27 Dose: 1 packet Documented by: Senna/Docusate Sodium (Senokot-S, Eliza-Colace) 2 tablet PO BID PRN PRN PRN Reason: Constipation Last Admin: 01/28/20 09:05 Dose: 2 tablet Documented by: Sodium Chloride () 10 - 40 ml IV UD PRN PRN Reason: SALINE FLUSH Last Admin: 01/28/20 17:32 Dose: 10 ml Documented by: Medical Necessity - Tobacco Use Smoking Status: Current every day smoker Tobacco Use: Cigarettes Assessment/Plan All Active Problems (Last Reviewed 10/04/19 @ 23:[address] Spencer Harman MD) Cellulitis (Acute) Postop day #2 left leg I&D. Packing removed. Dressing changed Dressing to be changed daily cleaned with sterile water and swab with Betadine redressed with Xeroform 4 x 4 ABD if needed Torsten and Derek. Sutures to be removed 10 to 17 days postop if wound allows. May follow-up with me 2 weeks Antibiotics per infectious disease. He is not to bear any weight through prosthesis or otherwise with left lower extremity until cleared by me. If any concerns please feel free to contact me.
--- NOTE | 2020-01-29 08:43 | PN_ITS ---
Patient Problems: Active and Suspected Problems (Last Reviewed 10/04/19 @ 23:[address] 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 MRI confirmed underlying abscess Subjective: hief complaint: Follow-up after admission for acute cellulitis/abscess of the below left knee amputation stump/infected wound status post incision and drainage, also found to have uncontrolled type 1 diabetes mellitus. Patient seen and examined. No acute events overnight. This morning, left leg pain is controlled with current pain medication regimen. Denied fever or chills. Denied other complaints apart from constipation and he has been on laxative. His vital signs are stable. - Physical Exam Vitals/I&O's: Vital Signs Temp Pulse Resp BP Pulse Ox 98.1 F 73 16 128/78 H 97 01/29/20 02:49 01/29/20 02:49 01/29/20 02:49 01/29/20 02:49 01/29/20 02:49 Oxygen Delivery Method Room Air Weight: 167 lb 12.348 oz Body Mass Index (BMI) 24.5 Finger Stick Blood Glucose 110 Intake and Output for Last 24 Hours 01/27/20 01/28/20 01/29/20 23:59 23:59 23:59 Intake Total 3749.75 / 3749.75 4984.91 / 6024.91 2019 / 2019 Output Total 800 / 800 3100 / 4575 2225 / 2225 Balance 2949.75 / 2949.75 1884.91 / 1449.91 -205 / -205 General: Alert, Oriented x3, Cooperative, No apparent distress HEENT: Atraumatic, PERRLA, EOMI, Normocephalic Oral: Moist Mucosa, No Gingival or Mucosal Lesions/ Ulcerations Neck: Supple, No JVD, Negative Carotid Bruits, Trachea Midline, Thyroid Normal Size and Texture Lungs: Clear to auscultation, Normal air movement, No rhonchi, No wheeze, No rales Cardiovascular: Regular rate, Regular Rhythm, Normal S1, Normal S2, No murmurs, PMI Normal Abdomen: Bowel Sounds Present, Soft, Non Tender, Non-Distended, No Hepato- splenomegaly Extremities: No clubbing, No cyanosis, No edema, - - Status below left knee amputation, stump is dressed. Skin: No rashes, Ulcer/ Wound Lymphatic: No Cervical, Supraclavicular, or Inguinal Adenopathy Neurological: Cranial nerves II-XII grossly intact, Neuro grossly intact Psych/Mental Status: Normal Affect, Appropriate, Alert and oriented to time, place, person, mood and affect Microbiology Past 72 Hours 01/27/20 14:26 Other - Other Gram Stain - Final 01/27/20 14:26 Other - Other Wound Culture - Preliminary Staphylococcus aureus 01/27/20 14:25 Other - Other Gram Stain - Final 01/27/20 14:25 Other - Other Wound Culture - Preliminary Staphylococcus aureus 01/26/20 08:10 Wound - Leg, Left Gram Stain - Final 01/26/20 08:10 Wound - Leg, Left Wound Culture - Preliminary Staphylococcus aureus Laboratory Results 01/28/20 08:35: Vancomycin Trough 14.4 01/28/20 11:06: POC Glucose 324 H 01/28/20 17:26: POC Glucose 362 H 01/28/20 21:28: POC Glucose 363 H 01/29/20 05:45: WBC 5.7, RBC 4.14 L, Hgb 10.7 L, Hct 34.4 L, MCV 83.1, MCH 25.8 L, MCHC 31.1 L, RDW Std Deviation 49.1 H, RDW Coeff of Candace 16.1 H, Plt Count 266, MPV 10.1, Immature Gran % (Auto) 0.500, Neut % (Auto) 56.0, Lymph % (Auto) 25.6, [place] % (Auto) 12.6 H, Eos % (Auto) 4.4, Baso % (Auto) 0.9, Absolute Neuts (auto) 3.2, Absolute Lymphs (auto) 1.46, Nucleated RBC % 0 01/29/20 05:45: Sodium 136, Potassium 3.9, Chloride 102, Carbon Dioxide 29.0, Anion Gap 5, BUN 9, Creatinine 0.51 L, Estim Creat Clear Calc 182.91, Est GFR (MDRD) Af Amer 223, Est GFR (MDRD) Non-Af 185, BUN/Creatinine Ratio 17.5, Glucose 234 H, Calcium 8.3 L 01/29/20 06:07: POC Glucose 215 H 01/29/20 08:30: Vancomycin Trough Pending Microbiology 01/27/20 14:26 Other - Other Gram Stain - Final 01/27/20 14:26 Other - Other Wound Culture - Preliminary Staphylococcus aureus 01/27/20 14:25 Other - Other Gram Stain - Final 01/27/20 14:25 Other - Other Wound Culture - Preliminary Staphylococcus aureus 01/26/20 08:10 Wound - Leg, Left Gram Stain - Final 01/26/20 08:10 Wound - Leg, Left Wound Culture - Preliminary Staphylococcus aureus Current Medications Acetaminophen (Tylenol) 650 mg PO Q6H PRN PRN PRN Reason: Pain Score 1-10/Temp > 100.7 F Last Admin: 01/26/20 07:55 Dose: 650 mg Documented by: Al Hydroxide/Mg Hydroxide (Mylanta Ii) 30 ml PO Q6H PRN PRN PRN Reason: Gastric Burning Dextrose (D50w Syringe) 0 gm IV X1 PRN; Protocol PRN Reason: Hypoglycemia Enoxaparin Sodium (Lovenox) 40 mg SC DAILY [facility] Last Admin: 01/28/20 08:40 Dose: 40 mg Documented by: Gabapentin (Neurontin) 300 mg PO BIDCM [facility] Last Admin: 01/28/20 17:31 Dose: 300 mg Documented by: Glucagon () 1 mg IM .X1 PRN PRN Reason: Hypoglycemia Sodium Chloride () 250 mls @ 15 mls/hr IV .[id number] PRN PRN Reason: Saline Flush Last Infusion: 01/28/20 14:56 Dose: 0 mls/hr Documented by: Sodium Chloride () 250 mls @ 15 mls/hr IV .[id number] PRN PRN Reason: Additional IVPB Infusion Vancomycin IV Pharmacy to Dose (1 ea/ Sodium Chloride) 500 mls @ 250 mls/hr IV PRN PRN; Protocol PRN Reason: Rx to Dose Piperacillin Sod/Tazobactam (Sod 3.375 gm/ Sodium Chloride) 50 mls @ 12.5 mls/hr IV Q8 [facility] Last Admin: 01/29/20 05:18 Dose: 12.5 mls/hr Documented by: Vancomycin HCl 1,500 mg/ (Sodium Chloride) 530 mls @ 250 mls/hr IV Q8H [facility] Last Infusion: 01/29/20 04:05 Dose: Infused Documented by: Insulin Glargine (Lantus (Bkc)) 28 units SC QHS [facility] Last Admin: 01/28/20 21:30 Dose: 28 u Documented by: Insulin Human Lispro (Humalog Kwikpen (Bkc)) 0 unit SC [facility]; Protocol Last Admin: 01/29/20 06:07 Dose: 2 units Documented by: Lisinopril (Zestril) 10 mg PO DAILY [facility] Last Admin: 01/28/20 08:47 Dose: 10 mg Documented by: Morphine Sulfate () 2 mg IV Q4H PRN PRN PRN Reason: Pain Score 6-10/10 Last Admin: 01/27/20 18:22 Dose: 2 mg Documented by: Nutritional Formula (Kwadwo - [place] Flavor) 1 packet PO BIDCM [facility] Last Admin: 01/28/20 17:31 Dose: Not Given Documented by: Nutritional Formula (Lactose Free) (Glucerna Shake) 120 ml PO 4X/DAY [facility] Last Admin: 01/28/20 21:30 Dose: 120 ml Documented by: Ondansetron HCl (Zofran) 4 mg IV Q8H PRN PRN PRN Reason: NAUSEA/VOMITING Oxycodone HCl (Oxyir) 5 mg PO Q4H PRN PRN PRN Reason: Pain Score 4-10/10 Last Admin: 01/29/20 06:05 Dose: 5 mg Documented by: Pantoprazole Sodium (Protonix) 20 mg PO DAILY [facility] Last Admin: 01/28/20 08:47 Dose: 20 mg Documented by: Psyllium Hydrophilic Mucilloid (Metamucil) 1 packet PO DAILY PRN PRN PRN Reason: Constipation Last Admin: 01/28/20 17:27 Dose: 1 packet Documented by: Senna/Docusate Sodium (Senokot-S, Eliza-Colace) 2 tablet PO BID PRN PRN PRN Reason: Constipation Last Admin: 01/28/20 09:05 Dose: 2 tablet Documented by: Sodium Chloride () 10 - 40 ml IV UD PRN PRN Reason: SALINE FLUSH Last Admin: 01/28/20 17:32 Dose: 10 ml Documented by: Medical Necessity - Tobacco Use Smoking Status: Current every day smoker Tobacco Use: Cigarettes Assessment/Plan All Active Problems (Last Reviewed 10/04/19 @ 23:[address] Spencer Harman MD) Cellulitis (Acute) This is a 44 years old male patient presented to the emergency room because of swelling and redness of the left below-knee amputation stump, found to have acute cellulitis/abscess of that stump with infected wounds. #1 below left knee amputation stump cellulitis/abscess/infected wounds: Osteomyelitis ruled out. Status post incision and drainage, postoperative day 2. Remained on IV vancomycin and Zosyn. Vital signs are stable, afebrile, no leukocytosis. Wound culture revealed staph aureus, final is pending. Surgical specimen also revealed staph aureus and final is pending. Orthopedic surgery and infectious disease are on the case. Plan to continue same treatment, awaiting culture results, patient will need [facility]. #2 uncontrolled type 2 diabetes mellitus: Hemoglobin A1c is 12.1%. Blood glucose still in the range of 200s to 300s. Dose of Lantus adjusted, insulin sliding scale also increase to medium dose sliding scale yesterday. Plan to monitor. #3 hypertension: Blood pressure stable, continue lisinopril. #4 peripheral neuropathy: Stable, continue gabapentin. #5 GERD: Continue Protonix. #6 DVT prophylaxis: Subcu Lovenox. This note was generated with [employer] dictation software. It may contain incorrect words, spelling, and punctuation that were not noted in checking the note before signing. Inpatient E&M: 95559 Subs Hosp L2
[2020-01-29 09:00] VITALS: BP 132/76; PULSE 88; RESP 16; TEMP 36.9; O2SAT 96
[2020-01-29] MEDS: Enoxaparin 40 MG/0.4 ML Syringe SC (09:22)
[2020-01-29] MEDS: Gabapentin 300 MG Capsule PO ×2 (09:22→16:12)
[2020-01-29] MEDS: Pantoprazole Sodium 20 MG Tablet PO (09:22)
[2020-01-29] MEDS: Lisinopril 10 MG Tablet PO (09:22)
[2020-01-29 09:28] LABS: Vancomycin, Trough Level 17.6 ug/mL (5.0-15.0)
[2020-01-29 12:20] LABS: Bedside Glucose 239 mg/dL (70-110)
--- NOTE | 2020-01-29 12:50 | NURSING ---
Pt still has not had a BM, today is 5 days. pt offered Senokot two tablets, refused. This nurse offered to text Hospitalist for something else and pt was agreeable to that.
[2020-01-29 15:20] VITALS: BP 170/92; PULSE 81; RESP 18; TEMP 36.8; O2SAT 98
[2020-01-29] MEDS: Cefazolin 2 GM in 0.9% Normal Saline 100 ML IV ×2 (15:48→21:44)
[2020-01-29] MEDS: Magnesium Hydroxide 30 ML UDC PO (15:48)
[2020-01-29] MEDS: 0.9% Saline Lock 10 ML Syringe IV (16:10)
[2020-01-29] MEDS: Morphine 2 MG/ML Syringe IV ×2 (16:10→20:07)
[2020-01-29] MEDS: Glucerna Shake 120 ML LIQUID PO ×2 (16:12→21:52)
[2020-01-29 16:30] LABS: Bedside Glucose 285 mg/dL (70-110)
[2020-01-29 22:00] VITALS: BP 146/89; PULSE 84; RESP 16; TEMP 36.9; O2SAT 100
[2020-01-29 22:10] LABS: Bedside Glucose 414 mg/dL (70-110)
[2020-01-30] MEDS: Morphine 2 MG/ML Syringe IV ×5 (00:08→22:19)
[2020-01-30 04:00] VITALS: BP 139/78; PULSE 82; RESP 16; TEMP 36.8; O2SAT 97
[2020-01-30] MEDS: Cefazolin 2 GM in 0.9% Normal Saline 100 ML IV ×3 (06:08→22:04)
[2020-01-30] MEDS: Insulin Lispro 100 UNIT/ML INSULN.PEN SC ×6 (06:47→22:06)
[2020-01-30 06:55] LABS: Bedside Glucose 255 mg/dL (70-110)
[2020-01-30 08:38] VITALS: BP 130/80; PULSE 80; RESP 18; TEMP 36.8; O2SAT 98
[2020-01-30] MEDS: oxyCODONE 5 MG Tablet PO ×3 (08:46→20:24)
[2020-01-30] MEDS: Lisinopril 10 MG Tablet PO (08:46)
[2020-01-30] MEDS: Glucerna Shake 120 ML LIQUID PO (08:46)
[2020-01-30] MEDS: Enoxaparin 40 MG/0.4 ML Syringe SC (08:46)
[2020-01-30] MEDS: Gabapentin 300 MG Capsule PO ×2 (08:46→17:47)
[2020-01-30] MEDS: Pantoprazole Sodium 20 MG Tablet PO (08:47)
--- NOTE | 2020-01-30 09:28 | NURSING ---
wound photo: left stump
--- NOTE | 2020-01-30 10:22 | PCM.TXEXTCAR ---
- Diet 01/27/20 16:16 Diet: Carbohydrate Controlled Is pt able to select menu?: Yes - Routine Orders/Code Status Suppository Type: Dulcolax 10mg Suppository Frequency: Daily PRN Routine Lab Work: CBC, BMP - CBC and BMP every week while on antibiotic - Wound(s) right bka Wound Type: BKA, sm open areas left stump Wound Type: surgical incisions with small wound Dressing Change: xeroform gauze right hsu Wound Type: Abrasion - Therapies Extremity Affected:: Left Lower Physical Therapy: Eval and Treat Occupational Therapy: Eval and Treat - Allergies/Procedures Done in Hospital Allergies/Adverse Reactions: Allergies No Known Allergies Allergy (Verified 01/25/20 20:11) - Type of Care/Length of Stay Estimated LOS: Convalescent Care Less Than 30 days Type of Care Needed: Skilled Rehab Potential: Good Prognosis: Good - Additional Orders/Day of Discharge Day of Discharge: 01/30/20 - Dietary and Speech Recommendations Dietitian Recommendations/Changes: Will provide CHO controlled diet, pt to choose food options he feels he can chew. Glucerna 120ml 4x/day at [facility] and Kwadwo BID for wound healing. - Follow Up Care Primary Care Physician: Shayna Winkler [Primary Care Provider] - Please follow up with your Primary Care Physician in: in 2 weeks Please Follow Up With: Spencer Nickerson DO When: in 1-2 week for left BKA stump abscess Please Follow Up With: Thiago Kerr MD When: in 2-3 weeks
--- NOTE | 2020-01-30 10:24 | PCM.DC.SUM ---
Discharge Date and Diagnosis - Problem List Patient Problems: Active and Suspected Problems (Last Reviewed 10/04/19 @ 23:[address] 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 MRI confirmed underlying abscess Date of Admission: 01/25/20 Date of Discharge: 01/30/20 - Primary Discharge Diagnosis Acute Problems: Active Problems (Last Reviewed 10/04/19 @ 23:[address] 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 MRI confirmed underlying abscess - Secondary Discharge Diagnosis Chronic Problems: Chronic Problems (Last Reviewed 10/04/19 @ 23:[address] 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 Patient was admitted [facility] floor. Was seen by wound care nurse and orthopedic surgeon. Patient had abscess at the left BKA stump and had surgical incision and drainage. Sutures intact. Minimal serosanguineous discharge with wound site 1.4 x 1.1 x 0.1 cm. Wound bed pale pink in color. There are 2 small incisions noted that are well approximated with sutures. The patient had dressing by wound nurse with sterile water and applied betadine lightly and placed xeroform gauze. covered with dry dressings and wrapped with kerlix. reapplied the DEREK wrap. Patient had incision and drainage on 01/27/2020. Initially on vancomycin and Zosyn then antibiotic was narrowed down to IV Ancef as per wound culture report. Wound culture shows MSSA. ID was consulted. Recommended to discharge on cefadroxil 1000 mg p.o. twice daily for 7 more days. Patient also has a small scabbed abrasion on the right hsu about 1.3 x 1.3 cm. #2 uncontrolled type 1 diabetes mellitus: Hemoglobin A1c is 12.1%. Blood glucose still in the range of 200s to 300s. Dose of Lantus adjusted, insulin sliding scale also increase to medium dose sliding scale. Scheduled Humalog insulin 5 mg 3 times daily with meal added. #3 hypertension: Blood pressure stable, continue lisinopril. #4 peripheral neuropathy: Stable, continue gabapentin. #5 GERD: Continue Protonix. #6 DVT prophylaxis: Subcu Lovenox. [Discharge medication reconciliation done. Discharge follow-up instructions completed. Discharge process discussed with the patient and all questions were answered to patient's satisfaction. Patient is being discharged to SNF. Total time spent, exact 35 minutes on discharge meds reconciliation, examination, coordination of care with nurses and ancillary staff, review of imaging and blood test and discussion with the patient on follow-up instructions] Patient Problems: Active and Suspected Problems (Last Reviewed 10/04/19 @ 23:[address] 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 MRI confirmed underlying abscess Objective: Seen and examined. Patient complain of pain 8?9 out of 10. Has left BKA stump dependent ulcer and cellulitis with underlying abscess for which she required incision and drainage by orthopedic surgeon. Patient has history of substance use including methamphetamine and opioid use in the past. No fever or chills. Physical exam findings: General: Alert, Oriented x3, Cooperative HEENT: Atraumatic, PERRLA, EOMI, Normocephalic Oral: No Gingival or Mucosal Lesions/ Ulcerations Neck: Supple, No JVD, Negative Carotid Bruits Lungs: Air entry equal in bilateral lung bases. No crepitation/rhonchi Cardiovascular: Regular rate, Regular Rhythm, Normal S1, Normal S2, No murmurs Abdomen: Bowel Sounds Present, Soft, Non Tender, Non-Distended : No renal angle tenderness. No suprapubic tenderness. Extremities: No edema, Capillary Refill Less than 3 Seconds. Left below-knee amputation with dressing and Derek wrap bandage intact. Skin: 1.4 x 1.1 x 0.1 surgical wound after incision and drainage. Sutures intact. Small scabbed abrasion on the right hsu 1.3 x 1.3 cm. Musculoskeletal: No Tenderness to Palpation of Joints or Extremities Neurological: Cranial nerves II-XII grossly intact, Deep Tendon Reflexes 2+/4 and Symmetrical, Neuro grossly intact Psych/Mental Status: Normal Affect, Appropriate - Physical Exam Vitals/I&O's: Vital Signs Temp Pulse Resp BP Pulse Ox 98.2 F 80 18 130/80 H 98 01/30/20 08:38 01/30/20 08:38 01/30/20 08:38 01/30/20 08:38 01/30/20 08:38 Oxygen Delivery Method Room Air Weight: 165 lb 9.074 oz Body Mass Index (BMI) 24.5 Finger Stick Blood Glucose 110 Intake and Output for Last 24 Hours 01/28/20 01/29/20 01/30/20 23:59 23:59 23:59 Intake Total 4984.91 / 6024.91 3070 / 3070 1184 / 1184 Output Total 3100 / 4575 3075 / 3075 2625 / 2625 Balance 1884.91 / 1449.91 -5 / -5 -1441 / -1441 Microbiology Past 72 Hours 01/27/20 14:25 Other - Other Gram Stain - Final 01/27/20 14:25 Other - Other Wound Culture - Final Staphylococcus aureus 01/27/20 14:25 Other - Other Anaerobic Culture - Final No anaerobic bacteria isolated. 01/27/20 14:26 Other - Other Gram Stain - Final 01/27/20 14:26 Other - Other Wound Culture - Final Staphylococcus aureus 01/27/20 14:26 Other - Other Anaerobic Culture - Final 01/26/20 08:10 Wound - Leg, Left Gram Stain - Final 01/26/20 08:10 Wound - Leg, Left Wound Culture - Final Staphylococcus aureus Laboratory Results 01/29/20 12:11: POC Glucose 239 H 01/29/20 16:17: POC Glucose 285 H 01/29/20 21:46: POC Glucose 414 H 01/30/20 06:45: POC Glucose 255 H Current Medications Acetaminophen (Tylenol) 650 mg PO Q6H PRN PRN PRN Reason: Pain Score 1-10/Temp > 100.7 F Last Admin: 01/26/20 07:55 Dose: 650 mg Documented by: Al Hydroxide/Mg Hydroxide (Mylanta Ii) 30 ml PO Q6H PRN PRN PRN Reason: Gastric Burning Bisacodyl (Dulcolax) 10 mg PO X1 ONE Stop: 01/30/20 10:09 Dextrose (D50w Syringe) 0 gm IV X1 PRN; Protocol PRN Reason: Hypoglycemia Enoxaparin Sodium (Lovenox) 40 mg SC DAILY [facility] Last Admin: 01/30/20 08:46 Dose: 40 mg Documented by: Gabapentin (Neurontin) 300 mg PO BIDCM [facility] Last Admin: 01/30/20 08:46 Dose: 300 mg Documented by: Glucagon () 1 mg IM .X1 PRN PRN Reason: Hypoglycemia Sodium Chloride () 250 mls @ 15 mls/hr IV .[id number] PRN PRN Reason: Saline Flush Last Admin: 01/30/20 00:11 Dose: 15 mls/hr Documented by: Sodium Chloride () 250 mls @ 15 mls/hr IV .[id number] PRN PRN Reason: Additional IVPB Infusion Cefazolin Sodium 2 gm/ Sodium (Chloride) 110 mls @ 150 mls/hr IV Q8 [facility] Last Infusion: 01/30/20 06:53 Dose: Infused Documented by: Insulin Glargine (Lantus (Bk)) 28 units SC QHS [facility] Last Admin: 01/29/20 21:47 Dose: 28 u Documented by: Insulin Human Lispro (Humalog Kwikpen (Bk)) 0 unit SC [facility]; Protocol Last Admin: 01/30/20 06:47 Dose: 3 units Documented by: Lisinopril (Zestril) 10 mg PO DAILY [facility] Last Admin: 01/30/20 08:46 Dose: 10 mg Documented by: Morphine Sulfate () 2 mg IV Q4H PRN PRN PRN Reason: Pain Score 6-10/10 Last Admin: 01/30/20 06:14 Dose: 2 mg Documented by: Nutritional Formula (Kwadwo - [place] Flavor) 1 packet PO BIDCM [facility] Last Admin: 01/30/20 08:45 Dose: Not Given Documented by: Nutritional Formula (Lactose Free) (Glucerna Shake) 120 ml PO 4X/DAY [facility] Last Admin: 01/30/20 08:46 Dose: 120 ml Documented by: Ondansetron HCl (Zofran) 4 mg IV Q8H PRN PRN PRN Reason: NAUSEA/VOMITING Oxycodone HCl (Oxyir) 5 mg PO Q4H PRN PRN PRN Reason: Pain Score 4-10/10 Last Admin: 01/30/20 08:46 Dose: 5 mg Documented by: Pantoprazole Sodium (Protonix) 20 mg PO DAILY [facility] Last Admin: 01/30/20 08:47 Dose: 20 mg Documented by: Psyllium Hydrophilic Mucilloid (Metamucil) 1 packet PO DAILY PRN PRN PRN Reason: Constipation Last Admin: 01/28/20 17:27 Dose: 1 packet Documented by: Senna/Docusate Sodium (Senokot-S, Eliza-Colace) 2 tablet PO BID [facility] Sodium Chloride () 10 - 40 ml IV UD PRN PRN Reason: SALINE FLUSH Last Admin: 01/29/20 16:10 Dose: 10 ml Documented by: Home Medications: Medications to take at Discharge Lisinopril [Zestril] 10 mg PO DAILY 10/04/19 Pantoprazole Sodium [Protonix] 20 mg PO DAILY 10/04/19 Gabapentin [Neurontin] 300 mg PO BIDCM cap 10/07/19 Insulin Lispro [Humalog KwikPen] See Protocol SUBCUT TID 01/25/20 Acetaminophen [Tylenol Tablet] 650 mg PO Q6H PRN PRN tab 01/30/20 Cefadroxil [Duricef] 1,000 mg PO BID 7 Days #28 cap 01/30/20 Insulin Glargine,Hum.rec.anlog [Lantus] 35 unit SQ QHS #0 01/30/20 Oxycodone [Oxyir] 5 mg PO Q4H PRN PRN 2 Days #10 tab 01/30/20 Senna/Docusate Sodium [Senokot-S] 2 tab PO BID tab 01/30/20 Following Prescrptions Were Given to Patient: Cefadroxil [Duricef] 1,000 mg PO BID 7 Days #28 cap Transmission Status: Received by [address] Oxycodone [Oxyir] 5 mg PO Q4H PRN PRN 2 Days #10 tab PRN Reason: Pain Score 4-10/10 Prescription Printed Primary Care Physician: Shayna Winkler [Primary Care Provider] - Please follow up with your Primary Care Physician in: in 2 weeks Please Follow Up With: Spencer Nickerson DO When: in 1-2 week for left BKA stump abscess Please Follow Up With: Thiago Kerr MD When: in 2-3 weeks Medical Necessity - Tobacco Use Smoking Status: Current every day smoker Tobacco Use: Cigarettes Meaningful Use Info Meaningful Use Diagnoses (Choose all that apply): None applicable Inpatient E&M: 46322 Disch Hosp
[2020-01-30 11:55] LABS: Bedside Glucose 324 mg/dL (70-110)
[2020-01-30] MEDS: Bisacodyl 5 MG Tablet 10 MG PO (11:59)
--- NOTE | 2020-01-30 13:10 | CASEMGMT ---
Social Work Note BASILIO placed a call to Gabbie at [facility] regarding referral. Gabbie states that they are denying pt. SW in to speak with pt. BASILIO introduced self and role at [facility]. Pt is alert and orientated x4. SW updated pt that [facility] denied pt so a new SNF will need to be discussed. Pt states I want a SNF in [place] that allow smoking. SW updated pt that this worker knows that both [place] and [facility] allow smoking. Pt agreeable to [facility] states that his father and aunt live close and may be able to drop off his belongings to [facility]. SW explained referral process and that pt will need pre-cert. BASILIO spoke with pt regarding health history. Pt states he was diagnosed with diabetes at age 10, can't feel anything from the waist down and has history of acevedo bite. SW offered support to pt. Pt states I was told that I have to go to a SNF but really want to return home. BASILIO spoke with pt regarding support and assistance at home. Pt states that he lives alone and is not close with any family or friends and has no one to help. Pt asked about getting assistance with shopping and manager strategic. SW educated pt on aides and that a referral could be made to [facility] and they can assess pt to see if they are able to provide any assistance or resources. BASILIO explained that up until [facility] see's pt or if pt doesn't qualify for aides, then pt can hire private duty aides. Pt agreeable to referral being sent to [facility]. BASILIO spoke with pt regarding past SNF. Pt states that he was recently at [facility]. Pt states that [facility] in [facility] in [facility] up until about April 2019. Pt states that from May to September he has been in and out of different hospitals or SNF. Pt states that he was trying to get on [place] [facility] when he was at [facility] but then when he went to [facility] the SW there told him that he didn't qualify. Pt states I was told this at the [place] and I expressed my frustration in ways that was taken as I was going to harm myself. Pt states that since I was frustrated I went outside to smoke and then the SW called [facility] and then they took me to [facility] where they sent me back to [facility] because I wasn't suicidal. Pt states that he wasn't suicidal at that time. SW spoke with pt regarding suicidal thoughts/plans/ideations. Pt states that he has struggled with depression for many years and he is not currently on medication. SW asked pt about seeing a counselor. Pt states [facility] but that was an [facility] and denied wanting to get into counseling again. Pt states that he has attempted suicide in the past with the last attempt being about three years ago. Pt states that he tried to hang himself. Pt states that the chain broke. SW spoke with pt regarding current feelings. Pt denied any suicidal thoughts/plans/ideations. Pt states that he has a peer support/drug recovery named Emily through [email or web address] and she helps him a lot. Pt states that Emily has helped him before get his license and has assisted him before with housing. Pt states that he currently doesn't have his license now either and states hopefully Emily will be able to assist him again but it is a hour and half drive for Emily to get to his apartment. Pt states he will likely need to go to court to get his license again. BASILIO offered much support to pt. BASILIO placed a call to Janny in admissions at [facility]. Janny states that they do allow smoking but pt will need to be quarantined for 14 days and will not be able to leave his room for 14 days and wouldn't be able to smoke for those 14 days. Janny agreeable to reviewing referral. BASILIO faxed referral to [facility]. BASILIO placed a call to [facility] and spoke with Dameon in admissions. Dameon states they do allow smoking but again pt would need to be quarantined for 14 days and wouldn't be able to smoke for 14 days. BASILIO waiting for call from Janny at [facility] regarding referral. BASILIO updated RN. RN states pt stated that if he can't smoke for 14 days then he is not going to SNF. BASILIO waiting for call back from [facility]. 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
[2020-01-30 14:10] VITALS: BP 138/93; PULSE 94; RESP 18; TEMP 36.7; O2SAT 99
--- NOTE | 2020-01-30 15:30 | CASEMGMT ---
Social Work Note SW received message from Janny at [facility] stating they are able to accept but reiterated that pt will not be allowed to smoke for 14 days while in quarantine. SW in to speak with pt. SW updated pt that [facility] is able to accept but pt will need to be in quarantine for 14 days and will not be allowed to smoke for those 14 days. SW explained that the other SNF in [place] that allow smoking is [facility] and they also require 14 day quarantine and pt would not be able to smoke for the 14 days in quarantine. Pt states well then I am not going to SNF if I can't smoke. SW explained that SNF are requiring 14 days quarantine due to COVID. Pt states I was tested for COVID and I don't have it. SW explained that it is just a requirement for SNF at this time, that new admissions are quarantined for 14 days, and pt will not be able to leave his room for 14 days while in quarantine. Pt states I need to smoke a cigarette. SW asked pt what if SNF allowed pt to smoke before he went into the facility and pt stated no, I want to be able to smoke while at SNF. SW explained that he will be able to after his 14 days of quarantine. Pt states No, I am going home. SW asked pt about assistance in the home. Pt states he will have no one but the RN can come back in. SW explained that RN will not be in everyday and asked if pt will be able to do dressing changes and pt states no. Pt states Just another person drawing my hand. BASILIO spoke with pt about him putting his cigarette above his care. Pt states you know you are acting just like that BASILIO at [place], now that I don't want to go to a nursing facility you are getting mean and chicken pecking your head and just saying ok to me. BASILIO explained that this worker is just trying to come up with a safe discharge plan for pt. BASILIO apologized if this worker was coming off any certain way to pt. Pt again states that he will return home at discharge with HHC and states that his HHC was arranged through [facility]. Pt states he had RN and PT/OT. SW updated pt that SW will check with HHC to make sure they are able to accept pt back. Pt states why wouldn't they be able to? BASILIO just explained that HHC just needs to be confirmed for pt at discharge. SW also updated pt that a referral was made to [facility] regarding services. Pt states understanding. SW updated RN CM that pt is requesting to discharge home with resumption of RN, PT/OT through [facility]. BASILIO placed a call to Janny at [facility] updating her to disregard referral now as pt doesn't want to be quarantined for 14 days. Plan: Home with [facility] for RN, PT/OT
--- NOTE | 2020-01-30 15:31 | PCM.DC ---
- Discharge Diagnoses Current Active Problems: Current Active and Chronic Problems (Last Reviewed 10/04/19 @ 23:[address] 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 MRI confirmed underlying abscess Hypertension (Chronic) DM type 1 (diabetes mellitus, type 1) (Chronic) PAD (peripheral artery disease) (Chronic) You will use the following diet at home:: Regular, Calorie/Carbohydrate Controlled (specify 1200, 1400, etc) Your food should be the consistency of: Regular Discharge Activity: May Not Drive Weight Bearing Status: No weight bearing Call your doctor if you observe: Fever of 101 or Higher, Coldness, Increased Pain, Numbness or Tingling, Inability to urinate, Inability to have a bowel movement, Shortness of breath, Dizziness, Fainting spells, Swelling in the ankles, Chest pain, Prolonged hiccoughing, Increased palpitations (irregular heartbeat) Allergies/Adverse Reactions: Allergies No Known Allergies Allergy (Verified 01/25/20 20:11) Medications to take at Discharge Lisinopril [Zestril] 10 mg PO DAILY 10/04/19 Pantoprazole Sodium [Protonix] 20 mg PO DAILY 10/04/19 Gabapentin [Neurontin] 300 mg PO BIDCM cap 10/07/19 Insulin Lispro [Humalog KwikPen] See Protocol SUBCUT TID 01/25/20 Acetaminophen [Tylenol Tablet] 650 mg PO Q6H PRN PRN tab 01/30/20 Cefadroxil [Duricef] 1,000 mg PO BID 7 Days #28 cap 01/30/20 Insulin Glargine,Hum.rec.anlog [Lantus] 35 unit SQ QHS #0 01/30/20 Oxycodone [Oxyir] 5 mg PO Q4H PRN PRN 2 Days #10 tab 01/30/20 Senna/Docusate Sodium [Senokot-S] 2 tab PO BID tab 01/30/20 The following prescriptions were given: Cefadroxil [Duricef] 1,000 mg PO BID 7 Days #28 cap Transmission Status: Received by [address] Oxycodone [Oxyir] 5 mg PO Q4H PRN PRN 2 Days #10 tab PRN Reason: Pain Score 4-10/10 Prescription Printed Primary Care Physician: Shayna Winkler [Primary Care Provider] - Please follow up with your Primary Care Physician in: in 2 weeks Test Results: Test results from this visit will be discussed in further detail at your follow-up appointment, if applicable. Please Follow Up With: Spencer Nickerson DO When: in 1-2 week for left BKA stump abscess Please Follow Up With: Thiago Kerr MD When: in 2-3 weeks
--- NOTE | 2020-01-30 15:37 | PCM.PN.ID ---
Patient Problems: Active and Suspected Problems (Last Reviewed 10/04/19 @ 23:[address] 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 MRI confirmed underlying abscess Subjective: Feeling fine, no fever, no n/v/d, leg hurts. - Physical Exam Vitals/I&O's: Vital Signs Temp Pulse Resp BP Pulse Ox 98.1 F 94 18 138/93 H 99 01/30/20 14:10 01/30/20 14:10 01/30/20 14:10 01/30/20 14:10 01/30/20 14:10 Oxygen Delivery Method Room Air Weight: 75.1 kg Body Mass Index (BMI) 24.5 Finger Stick Blood Glucose 110 Intake and Output for Last 24 Hours 01/28/20 01/29/20 01/30/20 23:59 23:59 23:59 Intake Total 4984.91 / 6024.91 3070 / 3070 1761.5 / 1761.5 Output Total 3100 / 4575 3075 / 3075 2625 / 2625 Balance 1884.91 / 1449.91 -5 / -5 -863.5 / -863.5 General: Alert, Cooperative, No apparent distress Lungs: Clear to auscultation, Normal air movement Cardiovascular: Regular rate, Regular Rhythm Abdomen: Soft, Non Tender, Non-Distended Skin: Ulcer/ Wound - reviewed photos Microbiology Past 72 Hours 01/27/20 14:25 Other - Other Gram Stain - Final 01/27/20 14:25 Other - Other Wound Culture - Final Staphylococcus aureus 01/27/20 14:25 Other - Other Anaerobic Culture - Final No anaerobic bacteria isolated. 01/27/20 14:26 Other - Other Gram Stain - Final 01/27/20 14:26 Other - Other Wound Culture - Final Staphylococcus aureus 01/27/20 14:26 Other - Other Anaerobic Culture - Final 01/26/20 08:10 Wound - Leg, Left Gram Stain - Final 01/26/20 08:10 Wound - Leg, Left Wound Culture - Final Staphylococcus aureus Laboratory Results 01/29/20 16:17: POC Glucose 285 H 01/29/20 21:46: POC Glucose 414 H 01/30/20 06:45: POC Glucose 255 H 01/30/20 11:39: POC Glucose 324 H Current Medications Acetaminophen (Tylenol) 650 mg PO Q6H PRN PRN PRN Reason: Pain Score 1-10/Temp > 100.7 F Last Admin: 01/26/20 07:55 Dose: 650 mg Documented by: Al Hydroxide/Mg Hydroxide (Mylanta Ii) 30 ml PO Q6H PRN PRN PRN Reason: Gastric Burning Dextrose (D50w Syringe) 0 gm IV X1 PRN; Protocol PRN Reason: Hypoglycemia Enoxaparin Sodium (Lovenox) [address] [facility] Last Admin: 01/30/20 08:46 Dose: 40 mg Documented by: Gabapentin (Neurontin) [address] [facility] Last Admin: 01/30/20 08:46 Dose: 300 mg Documented by: Glucagon () 1 mg IM .X1 PRN PRN Reason: Hypoglycemia Sodium Chloride () 250 mls @ 15 mls/hr IV .[id number] PRN PRN Reason: Saline Flush Last Infusion: 01/30/20 15:21 Dose: 0 mls/hr Documented by: Sodium Chloride () 250 mls @ 15 mls/hr IV .[id number] PRN PRN Reason: Additional IVPB Infusion Cefazolin Sodium 2 gm/ Sodium (Chloride) 110 mls @ 150 mls/hr IV Q8 [facility] Last Admin: 01/30/20 15:11 Dose: 150 mls/hr Documented by: Insulin Glargine (Lantus (Bkc)) [address] [facility] Last Admin: 01/29/20 21:47 Dose: 28 u Documented by: Insulin Human Lispro (Humalog Kwikpen (Bkc)) [address] [facility]; Protocol Last Admin: 01/30/20 11:59 Dose: 5 units Documented by: Insulin Human Lispro (Humalog Kwikpen (Bkc)) [address] [facility] Last Admin: 01/30/20 11:59 Dose: 5 u Documented by: Lisinopril (Zestril) [address] [facility] Last Admin: 01/30/20 08:46 Dose: 10 mg Documented by: Morphine Sulfate () 2 mg IV Q4H PRN PRN PRN Reason: Pain Score 6-10/10 Last Admin: 01/30/20 10:41 Dose: 2 mg Documented by: Nutritional Formula ([place] - [place] Flavor) 1 packet [facility] Last Admin: 01/30/20 08:45 Dose: Not Given Documented by: Ondansetron HCl (Zofran) 4 mg IV Q8H PRN PRN PRN Reason: NAUSEA/VOMITING Oxycodone HCl (Oxyir) 5 mg PO Q4H PRN PRN PRN Reason: Pain Score 4-10/10 Last Admin: 01/30/20 15:14 Dose: 5 mg Documented by: Pantoprazole Sodium (Protonix) [address] [facility] Last Admin: 01/30/20 08:47 Dose: 20 mg Documented by: Psyllium Hydrophilic Mucilloid (Metamucil) 1 packet PO DAILY PRN PRN PRN Reason: Constipation Last Admin: 01/28/20 17:27 Dose: 1 packet Documented by: Senna/Docusate Sodium (Senokot-S, Eliza-Colace) [address] [facility] Sodium Chloride () 10 - 40 ml IV UD PRN PRN Reason: SALINE FLUSH Last Admin: 01/29/20 16:10 Dose: 10 ml Documented by: Medical Necessity - Tobacco Use Smoking Status: Current every day smoker Tobacco Use: Cigarettes Route of nutrition/ use of supplements: [] Nutritional Intake: [] IV Site: [] Brady Catheter: [] - Assessment/Plan Antibiotics: [] Assessment/Plan: [] Active and Suspected Problems (Last Reviewed 10/04/19 @ 23:[address] 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 MRI confirmed underlying abscess MSSA abscess of L BKA stump - now s/p I&D by Dr. Nickerson on 01/26. Cxs with mssa. mRI showed no osteo. Abx narrowed to cefazolin. Ok for d/c on one week more of duricef. Will follow as needed, thank you
--- NOTE | 2020-01-30 15:38 | CASEMGMT ---
MATT MADISON updated by BASILIO Garner that patient is discharging home with resumption of HHC. Patient is active with [facility]. MATT MADISON called [facility] and verified services. Patient is active for fpc and PT. MATT MADISON sent resumption order and discharge paperwork to [facility]. Per Watson at [facility], patient will be seen tomorrow. MATT MADISON updated hospitalist and
--- NOTE | 2020-01-30 16:44 | NURSING ---
In to discuss dc plan with patient. He is on the verge of tears as he tells this RN that he has PTSD and that there are other reasons I want to go out and smoke a few times a day. This RN verbalizes understanding and questions what those other reasons are. Patient looks out the window and does not answer. This RN asks if the patient is having any thoughts of harming himself or others or that he has any other type of plan to do this. Patient denies stating that he has been very honest and open with this underwriter solicitation director today and that he is not going to start lying now. This RN begins to ask patient about smoking and he states that cigarettes should have never been a part of this conversation. it has nothing to do with be being discharged. I was in a group home a few months ago and I was allowed to smoke. This RN reminded him that since COV there have been many changes everywhere. This has nothing to do with him and his desire to smoke, it has to do with nursing homes and their policy on the 14 day quarantine. They have policies and procedures changed often and these are their new rules that you are asked to abide by when you arrive at the group home. Patient states he does not want to go to the group home if he is not allowed to smoke. SW updated.
[2020-01-30 17:11] LABS: Bedside Glucose 322 mg/dL (70-110)
[2020-01-30] MEDS: 0.9% Saline Lock 10 ML Syringe IV ×2 (17:23→22:18)
--- NOTE | 2020-01-30 17:24 | PCA ---
physicians will be here 01/31/20 at 11 am to get patient to take home
--- NOTE | 2020-01-30 18:11 | CASEMGMT ---
Social Work Note SW back in to speak with pt. Pt apologized if he came across mean earlier to this worker. Pt states sometimes things come out of my mouth that I don't mean to in a way and sometimes with my brain I have trouble understanding and relaying what I am trying to say. SW spoke with pt regarding his current frustrations and how difficult things are for pt at this time. SW again spoke with pt about SNF. Pt states well it actually isn't the smoking that is the problem, it is the being in quarantine for 14 days. Pt states I can return home and be in quarantined and be in my apartment. Pt states I would like to of been able to move around in the halls and participate in activities if I were going to go to a nursing facility. SW updated pt that he doesn't have to go to SNF for the full 14 days and he could go for a few days. Pt states well what's the point of that, I Can go home and get my HHC to come see me and get the same amount of care. Pt states at this time, I just think going home is in my best interest. Pt states I will be calling my son to see if someone can bring him to my house tomorrow so he is there to be there with me initially. Pt states and then my HHC can come out. Pt states before with HHC there was someone at his home almost everyday between the RN and PT/OT. SW again spoke with pt about going to SNF short term and pt again denied. SW explained that if pt feels that going home is in his best interest, then SW can work with RN GRICELDA to get pt home at discharge. Pt again states he feels going home is in his best interest. Pt states I just don't want to be quarantined in my room for 14 days. Pt again states I can be quarantined at home. SW again tried to explained that he doesn't have to remain at SNF for the full 14 days and recommendation is to go to SNF and pt still denied SNF. SW updated pt that tie carrier will be cancelling his transport liseth and this worker believes tie carrier is going to try and get is rescheduled for tomorrow morning around 11:00am. Pt states he will be calling his son liseth to update him on discharge tomorrow. SW also discussed advanced directives with pt. SW updated pt that this worker can leave documents for him to review and this worker will attempt to see him tomorrow before he leaves to determine if he wants to complete the documents or not. Pt states understanding. Plan: Home with [facility] tomorrow. Naomi Garner FIELD OPERATOR, MACHINE MILKER
[2020-01-30 20:15] VITALS: BP 129/82; PULSE 81; RESP 16; TEMP 36.8; O2SAT 97
[2020-01-30] MEDS: Acetaminophen 325 MG Tablet 650 MG PO (20:24)
[2020-01-30] MEDS: Menthol/Lanolin/Calamine/Znox 113 GM Tube 1 APPLIC TOPICAL (22:06)
[2020-01-30] MEDS: Senna/Docusate Sodium 1 Tablet 2 TABLET PO (22:06)
[2020-01-30 22:20] LABS: Bedside Glucose 322 mg/dL (70-110)
[2020-01-31] MEDS: oxyCODONE 5 MG Tablet PO ×3 (01:50→10:18)
[2020-01-31 01:59] VITALS: BP 136/82; PULSE 76; RESP 16; TEMP 36.8; O2SAT 97
[2020-01-31] MEDS: Cefazolin 2 GM in 0.9% Normal Saline 100 ML IV (06:11)
[2020-01-31] MEDS: Menthol/Lanolin/Calamine/Znox 113 GM Tube 1 APPLIC TOPICAL (06:13)
[2020-01-31] MEDS: Morphine 2 MG/ML Syringe IV (07:54)
[2020-01-31] MEDS: 0.9% Saline Lock 10 ML Syringe IV (07:54)
[2020-01-31] MEDS: Gabapentin 300 MG Capsule PO (08:00)
[2020-01-31] MEDS: Pantoprazole Sodium 20 MG Tablet PO (08:01)
[2020-01-31] MEDS: Lisinopril 10 MG Tablet PO (08:01)
[2020-01-31 08:05] VITALS: BP 164/95; PULSE 79; RESP 18; TEMP 36.6; O2SAT 99
[2020-01-31] MEDS: Insulin Lispro 100 UNIT/ML INSULN.PEN SC ×2 (08:05→08:06)
[2020-01-31 08:25] LABS: Bedside Glucose 224 mg/dL (70-110)
--- NOTE | 2020-01-31 10:10 | CASEMGMT ---
Social Work Note SW back in to speak with pt as pt is being discharged home today. Pt states that he is ready to return home today and confirms that his son will be at his home today to stay with him initially. Pt states that his lump in his throat is gone and he feels ok. Pt states that [facility] called him today and states that someone will be coming to pt's home to assess pt for possibly Assisted Living or additional help in the home. Pt thanked this worker for making [facility] Referral. SW asked pt if this worker could make him an appointment with [facility] or any agency to get pt intake appointment to get pt additional support and linked up with services and pt denied. Pt states that he will talk to his peer support Emily through [employer] if he needs to. SW informed pt that Emily may be able to assist pt with getting linked up with a counselor if he feels he needs one at a later time. Pt states that he also has a SW [facility] SW again offered to make an intake appointment for pt and pt once again denied. Pt receptive to taking counseling resources and PCP list. SW provided counseling resources, PCP and endocrinology information per pt's request. SW asked pt about suicidal thoughts/plans/ideations. Pt denied any current suicidal thoughts/plans/ideations. SW provided pt with Crisis intervention team number and National Suicide Prevention Lifeline number. SW spoke with pt regarding advanced directives. Pt states he would like to take the documents home and talk to whoever he wants to name to be his HCPOA. SW also provided pt with social service rac card and number to call if he would like to complete documents as an outpatient later on. Pt again thanked this worker, denied additional needs or concerns at this time. Plan: Home with resumption of [facility] Naomi Garner CRNA, INTAKE COORDINATOR
--- NOTE | 2020-01-31 14:13 | PCM.PN.HOSP ---
Reason for Visit: Patient changed his mind yesterday and did not want to go to SNF as he will be isolated for 2 weeks. Patient also has substance use disorder including methamphetamine. He did not had a right yesterday therefore discharge was postponed. Objective: Seen and examined. Patient was tried to convince to go to SNF in order for left BKA stump to heal, physical therapy but he refused. Dressing was changed in the morning by wound nurse. Physical exam findings: General: Alert, Oriented x3, Cooperative HEENT: Atraumatic, PERRLA, EOMI, Normocephalic Oral: No Gingival or Mucosal Lesions/ Ulcerations Neck: Supple, No JVD, Negative Carotid Bruits Lungs: Air entry equal in bilateral lung bases. No crepitation/rhonchi Cardiovascular: Regular rate, Regular Rhythm, Normal S1, Normal S2, No murmurs Abdomen: Bowel Sounds Present, Soft, Non Tender, Non-Distended : No renal angle tenderness. No suprapubic tenderness. Extremities: No edema, Capillary Refill Less than 3 Seconds. Left below-knee amputation with dressing and Derek wrap bandage intact. Skin: 1.4 x 1.1 x 0.1 surgical wound after incision and drainage. Sutures intact. Small scabbed abrasion on the right hsu 1.3 x 1.3 cm. Musculoskeletal: No Tenderness to Palpation of Joints or Extremities Neurological: Cranial nerves II-XII grossly intact, Deep Tendon Reflexes 2+/4 and Symmetrical, Neuro grossly intact Psych/Mental Status: Normal Affect, Appropriate Vitals/I&O's: Vital Signs Temp Pulse Resp BP Pulse Ox 97.9 F 79 18 164/95 H 99 01/31/20 08:05 01/31/20 08:05 01/31/20 08:05 01/31/20 08:05 01/31/20 08:05 Oxygen Delivery Method Room Air Weight: 165 lb 9.074 oz Body Mass Index (BMI) 24.5 Finger Stick Blood Glucose 110 Intake and Output for Last 24 Hours 01/29/20 01/30/20 01/31/20 23:59 23:59 23:59 Intake Total 3070 / 3070 2781.5 / 3021.5 610.75 / 610.75 Output Total 3075 / 3075 2625 / 2625 Balance -5 / -5 156.5 / 396.5 610.75 / 610.75 Microbiology Past 72 Hours 01/27/20 14:25 Other - Other Gram Stain - Final 01/27/20 14:25 Other - Other Wound Culture - Final Staphylococcus aureus 01/27/20 14:25 Other - Other Anaerobic Culture - Final No anaerobic bacteria isolated. 01/27/20 14:26 Other - Other Gram Stain - Final 01/27/20 14:26 Other - Other Wound Culture - Final Staphylococcus aureus 01/27/20 14:26 Other - Other Anaerobic Culture - Final 01/26/20 08:10 Wound - Leg, Left Gram Stain - Final 01/26/20 08:10 Wound - Leg, Left Wound Culture - Final Staphylococcus aureus Laboratory Results 01/30/20 16:57: POC Glucose 322 H 01/30/20 22:03: POC Glucose 322 H 01/31/20 08:05: POC Glucose 224 H Medical Necessity - Tobacco Use Smoking Status: Current every day smoker Tobacco Use: Cigarettes Assessment/Plan All Active Problems (Last Reviewed 10/04/19 @ 23:[address] Spencer Harman MD) Cellulitis (Acute) Please see discharge summary on 01/30/2020 for details. Patient was discharged on cefadroxil 1 g twice daily. Was given a prescription for OxyIR 5 mg every 4 hourly as needed total 10 tablets for pain control needs refill in our retail pharmacy. Discharge follow-up instructions discussed with the patient. Discharged home with home health care. Inpatient E&M: 38586 Subs Hosp L2
--- NOTE | 2020-02-01 12:06 | CASEMGMT ---
Social Work Discharge follow up Phone call: Discharge Date: 01/31/20 Call Date: 02/01/20 Callt Time: 1200 Reason for Follow up: Pt would benefit from SNF with multiple medical problems and home that is not accessible. Pt refused SNF and returned home with no social support. Summary of Call: SW spoke with pt who confirms that home health nurse did visit this morning and will be visiting daily for the next two weeks. Pt son is currently with pt however, son is 15 and not able to stay or really assist pt in anyway. SW inquired about accessibility to home and groceries. Pt stating that he just got home yesterday and he will figure out what to do. Pt does confirm that he does not have social support but at this time refusing assistance from SW. Interventions: SW attempted to talk to pt regarding resources and ability to stay at home safely. Pt confident he will figure out a way. Home health is involved and referral has been made to [facility] which pt is aware of and is appreciative of. Pt denying any needs at this time. No further needs requested or indicated. VINCENT Simms
== END 2020-01-31 11:26 | disposition home health service (06) | DRG 464 ==
LOC: ED 23:01 → MS3 23:07
PROVIDERS: Anesthesiology; Hospitalist; Orthopaedic Surgery; Physician Assistant; Admitting Provider Internal Medicine; Emergency Provider Emergency Medicine; PCP Family Medicine; Visit Provider Internal Medicine
PROC: 0JBP0ZZ Excision of Left Lower Leg Subcutaneous Tissue and Fascia, Open Approach (ICD-10-PCS; principal; 2020-01-27 13:20)
DX: T87.44 Infection of amputation stump, left lower extremity (principal); L03.116 Cellulitis of left lower limb; L02.416 Cutaneous abscess of left lower limb; B95.61 Methicillin susceptible Staphylococcus aureus infection as the cause of diseases classified elsewhere; Y83.5 Amputation of limb(s) as the cause of abnormal reaction of the patient, or of later complication, without mention of misadventure at the time of the procedure; E10.51 Type 1 diabetes mellitus with diabetic peripheral angiopathy without gangrene; E10.42 Type 1 diabetes mellitus with diabetic polyneuropathy; E10.610 Type 1 diabetes mellitus with diabetic neuropathic arthropathy; E10.65 Type 1 diabetes mellitus with hyperglycemia; I10 Essential (primary) hypertension; Z79.899 Other long term (current) drug therapy; K59.00 Constipation, unspecified; K21.9 Gastro-esophageal reflux disease without esophagitis; F17.210 Nicotine dependence, cigarettes, uncomplicated; Z79.4 Long term (current) use of insulin
CPT/HCPCS: 36415; 73590; 73720; 80048; 80053; 80076; 80202; 82962; 83036; 83540; 83550; 85025; 85610; 85652; 85730; 86140; 87070; 87075; 87077; 87186; 87205; 87635; 87640; 93005; 94762; 97162; 97166; 97530; 97802; 99283; 99406; A9575; G2023; J7030; J7040; J7050; J7120; A4216; J2405; U0003

== ENCOUNTER 2020-08-13 13:12 | Inpatient (IN) | payer MEDICARE, MEDICAID, SELFPAY ==
[2020-08-13] VITALS (20 sets, daily range): BP systolic 125–181; BP diastolic 79–112; PULSE 98–117; RESP 11–23; TEMP 36.7–36.8; O2SAT 94–100; BMI 23.5; BMI 22.6
--- NOTE | 2020-08-13 13:58 | EKG12_ITS ---
Test Reason : CP Blood Pressure : / mmHG Vent. Rate : 109 BPM Atrial Rate : 109 BPM P-R Int : 140 ms QRS Dur : 086 ms QT Int : 344 ms P-R-T Axes : 066 004 065 degrees QTc Int : 463 ms Sinus tachycardia Septal infarct ,age undetermined, cannot be excluded Abnormal ECG Confirmed by LUIS GUY, NICKOLAS ([id number]), editor farm journal TONYA PRICE ([id number]) on 08/15/2020 11:08:14 AM Referred By: TOMA Confirmed By:NICKOLAS SMITH MD
[2020-08-13 14:08] LABS: Absolute Neutrophil Count 16.1 X10^3/uL (2.0-7.7); Basophil# 0.06 X10^3/uL; Basophil% 0.3 % (0-1); Eosinophil# 0.01 X10^3/uL; Eosinophils% 0.1 % (0-5); Hematocrit 42.6 % (40-54); Hemoglobin 13.1 g/dL (13.0-16.5); Mean Corp Hgb Conc 30.8 g/dL (32-36); Mean Corpuscular Hgb 24.6 pg (27.0-32.0); Mean Corpuscular Volume 79.9 fL (80-94); Mean Platelet Vol. 10.9 fl (6.2-12.0); Monocyte# 1.01 X10^3/uL; Monocyte% 5.4 % (0-10); NRBC Flagged by Analyzer 0 % (0-5); Neutrophil # 16.08 X10^3/uL (2.7-7.7); Neutrophil % 85.5 % (47-70); Platelet Count 324 K/mm3 (150-450); RBC Distribution Width CV 15.3 % (11.6-14.6); RBC Distribution Width SD 44.1 fl (35.1-43.9); Red Blood Count 5.33 M/mm3 (4.6-6.2); White Blood Count 18.8 K/mm3 (4.4-11.0)
[2020-08-13] MEDS: 0.9% Normal Saline 1,000 ML 999 ML IV ×4 (14:08→18:03)
--- NOTE | 2020-08-13 14:10 | RAD_ITS ---
STUDY: X-RAY CHEST REASON FOR EXAM: Male, 45 years old. PT C/O N/V AND INTERMITTENT CP FOR 3 DAYS TECHNIQUE: Single AP portable view of the chest. COMPARISON: Comparison is made with prior study of 10/04/2019. FINDINGS: EKG electrodes are seen. The lungs are clear and expanded. There is no demonstrated pleural abnormality. Normal size heart. Normal mediastinum and aime. Normal visualized pulmonary arteries. Normal visualized aortic arch and descending thoracic aorta. There are degenerative changes of the visualized thoracic spine. Normal visualized ribs, clavicles, and shoulders. There is no demonstrated abnormality of the visualized soft tissue structures of the upper abdomen. RAD/Chest 1 View (Portable) IMPRESSION: No acute abnormality is seen. Stable examination. Electronically Signed: Guy Parson MD at 14:36 EST , Service support ,
--- NOTE | 2020-08-13 14:16 | ED.VIS.GEN ---
History of Present Illness Chief Complaint: Nausea/Vomiting Informant: Patient Narrative: Patient presents for evaluation of vomiting. Patient is a exceedingly poor historian. Patient gets upset when he gives wrong information and were not sure what he is talking about and asked for clarification. It would appear from what I am able to piece together that he has a history of type 1 diabetes. He has a left BKA and is currently undergoing long-term antibiotic therapy through a right PICC line due to infection. He reports that he had his initial amputation in [facility] and later here at [facility] had revision and per the chart this was with Dr. Nickerson. He tells me for the past 3 days he has had vomiting. He tells me that today his stool turned slightly loose/soft and green. He has not ate for 3 days but has been trying to drink fluids but when he does he vomits. He states that his blood sugar is greater than 500. He denies any fevers. - Past Medical History (1) Cellulitis Status: Chronic Comment: Left lower extremity cellulitis at previous BKA stump. MRI confirmed underlying abscess (2) DM type 1 (diabetes mellitus, type 1) Status: Chronic (3) Hypertension Status: Chronic (4) PAD (peripheral artery disease) Status: Chronic Past Medical History - Allergies and Home Meds Allergies/Adverse Reactions: Allergies No Known Allergies Allergy (Verified 08/13/20 13:18) Surgical History: - - Left below the knee amputation Smoking Status: Current every day smoker Drugs: None - Family History Maternal Family History: Reports: Diabetes, Heart Disease, Pulmonary Disease Paternal Family History: Reports: Cancer - Pancreatic Review of Systems General: Denies: Chills, Fever, Sweats Eyes: Denies: Visual changes - bilaterally, Diplopia ENT: Denies: Rhinorrhea, Sore throat Cardiovascular: Denies: Chest pain, Palpitations Respiratory: Denies: Dyspnea, Cough, Dyspnea on exertion Gastrointestinal: Reports: Nausea, Vomiting. Denies: Abdominal pain, Diarrhea, Melena, Hematochezia Genitourinary: Denies: Dysuria, Hematuria, Frequency Musculoskeletal: Denies: Back pain, Extremity Pain Skin: Denies: Rash, Wounds Neurological: Denies: Headache, Weakness, Numbness Physical Exam Vital Signs/Narrative: Vital Signs Temp Pulse Resp BP Pulse Ox 08/13/20 13:18 98.1 F 111 H 12 151/112 H 100 01/25/21 13:15 98.1 F 111 H 12 151/112 H 100 Inital Vital Signs reviewed: Yes General: Well nourished, Well developed, No Acute Distress Head: Normocephalic, Atraumatic Eyes: Perrl, EOMI ENT: Moist mucous membranes, No rhinorrhea Neck: Supple, Nontender Cardiovascular: Regular rate, No murmurs, Tachycardia Respiratory: No distress, CTA bilaterally, Chest nontender, - - Patient is tachypneic but not in distress Abdomen: Soft, Nontender, Nondistended, Normal bowel sounds Back: Nontender, Normal Inspection Extremities: Nontender, No edema Skin: Normal color, No rash Neurological: Alert, Oriented x3, Cranial nerves II-XII grossly intact, Normal Strength, Normal Sensation Psychological: Agitated Diagnostic/Tx/Re-eval Clinical Impression(s) from Imaging Studies Chest X-Ray 08/13/20 14:10 IMPRESSION: No acute abnormality is seen. Stable examination. Electronically Signed: Guy Parson MD at 14:36 EST , Service support , Laboratory Last Values WBC 18.8 K/mm3 (4.4-11.0) H 08/13/20 13:44 RBC 5.33 M/mm3 (4.6-6.2) 08/13/20 13:44 Hgb 13.1 g/dL (13.0-16.5) 08/13/20 13:44 Hct 42.6 % (40-54) 08/13/20 13:44 MCV 79.9 fL (80-94) L 08/13/20 13:44 MCH 24.6 pg (27.0-32.0) L 08/13/20 13:44 MCHC 30.8 g/dL (32-36) L 08/13/20 13:44 RDW Std Deviation 44.1 fl (35.1-43.9) H 08/13/20 13:44 RDW Coeff of Candace 15.3 % (11.6-14.6) H 08/13/20 13:44 Plt Count 324 K/mm3 (150-450) 08/13/20 13:44 MPV 10.9 fl (6.2-12.0) 08/13/20 13:44 Immature Gran % (Auto) 0.700 % (0.0-0.9) 08/13/20 13:44 Neut % (Auto) 85.5 % (47-70) H 08/13/20 13:44 Lymph % (Auto) 8.0 % (19-41) L 08/13/20 13:44 [place] % (Auto) 5.4 % (0-10) 08/13/20 13:44 Eos % (Auto) 0.1 % (0-5) 08/13/20 13:44 Baso % (Auto) 0.3 % (0-1) 08/13/20 13:44 Absolute Neuts (auto) 16.1 X10^3/uL (2.0-7.7) H 08/13/20 13:44 Absolute Lymphs (auto) 1.50 X10^3/uL (0.83-4.51) 08/13/20 13:44 Nucleated RBC % 0 % (0-5) 08/13/20 13:44 Sodium 128 mmol/L (136-145) L 08/13/20 13:44 Potassium 4.4 mmol/L (3.5-5.1) 08/13/20 13:44 Chloride 86 mmol/L (98-107) L 08/13/20 13:44 Carbon Dioxide 18.0 mmol/L (21.0-32.0) L 08/13/20 13:44 Anion Gap 24 (5-15) H 08/13/20 13:44 BUN 43 mg/dL (7-18) H 08/13/20 13:44 Creatinine 1.26 mg/dL (0.70-1.30) 08/13/20 13:44 Estim Creat Clear Calc 70.87 ml/min 08/13/20 13:44 Est GFR (MDRD) Af Amer 79 mL/min (>60) 08/13/20 13:44 Est GFR (MDRD) Non-Af 65 mL/min (>60) 08/13/20 13:44 BUN/Creatinine Ratio 34.1 RATIO (10-20) H 08/13/20 13:44 Glucose 563 mg/dL (74-106) H* 08/13/20 13:44 Calcium 9.5 mg/dL (8.5-10.1) 08/13/20 13:44 Phosphorus 4.7 mg/dL (2.5-4.9) 08/13/20 13:44 Magnesium 2.3 mg/dL (1.6-2.6) 08/13/20 13:44 Total Bilirubin 0.80 mg/dL (0.20-1.00) 08/13/20 13:44 AST 14 U/L (15-37) L 08/13/20 13:44 ALT 25 U/L (16-61) 08/13/20 13:44 Alkaline Phosphatase 124 U/L (45-117) H 08/13/20 13:44 Troponin I < 0.015 ng/mL (<0.045) 08/13/20 13:44 Total Protein 8.3 g/dL (6.4-8.2) H 08/13/20 13:44 Albumin 3.9 g/dL (3.2-5.0) 08/13/20 13:44 Globulin 4.4 g/dL (2.2-4.2) H 08/13/20 13:44 Albumin/Globulin Ratio 0.9 RATIO (0.9-2.4) 08/13/20 13:44 POC Glucose > 500 mg/dL (70-110) H* 08/13/20 14:44 - EKG Initial EKG Interpretation: Sinus Tachycardia - EKG is a sinus tachycardia at a rate of 109 with no concerning features of ACS or ectopy. - Medical Decision Making Patient's labs are consistent with a diabetic ketoacidosis. He has received 2 L of IV fluids followed by a third bolus and insulin drip. Plan is admission into the ICU. 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
[2020-08-13 14:36] LABS: ALB/GLOB Ratio 0.9 RATIO (0.9-2.4); AST(SGOT) 14 U/L (15-37); Alanine Aminotransfer ALT/SGPT 25 U/L (16-61); Albumin, Serum 3.9 g/dL (3.2-5.0); Alkaline Phosphatase 124 U/L (45-117); Anion Gap 24 (5-15); BUN 43 mg/dL (7-18); BUN/Creat Ratio 34.1 RATIO (10-20); Calcium,Total 9.5 mg/dL (8.5-10.1); Chloride 86 mmol/L (98-107); Creatinine, Serum 1.26 mg/dL (0.70-1.30); EST Glomerular Filtration Rate 65 mL/min (>60); Est Glom Filt Rate - Afr Amer 79 mL/min (>60); Estimated Creatinine Clearance 70.87 ml/min; Globulin 4.4 g/dL (2.2-4.2); Glucose 563 mg/dL (74-106); Magnesium 2.3 mg/dL (1.6-2.6); Phosphorus 4.7 mg/dL (2.5-4.9); Potassium 4.4 mmol/L (3.5-5.1); Protein, Total 8.3 g/dL (6.4-8.2); Sodium Level 128 mmol/L (136-145)
[2020-08-13 14:51] LABS: Bedside Glucose > 500 mg/dL (70-110)
[2020-08-13 15:18] LABS: Bacteria 0 SEEN /hpf (None Seen); Mucous, Urine 0 SEEN /hpf (<or=2+); Red Blood Cells-Urine 0 SEEN /hpf (0-5); Squamous Epithelial Cells - UA 0 SEEN /hpf (0-5); White Blood Cells 0 SEEN /hpf (0-5)
[2020-08-13 15:20] LABS: Color, Urine Straw (Yellow); Glucose, Dipstick 1000 mg/dl (Normal); Leukocyte Esterase-Dipstick Negative /ul (Negative); Nitrite-Dipstick Negative (Negative); Occult Blood-Urine Negative /ul (Negative); Protein-Dipstick 30 mg/dl (Negative); Urine Bilirubin Dipstick Negative (Negative); Urine Clarity Clear (Clear); Urine Urobilinogen Normal (Normal)
[2020-08-13 15:28] LABS: Ketone-Dipstick 150 mg/dl (Negative)
--- NOTE | 2020-08-13 17:23 | PCM.HP.STD ---
Problem List (1) Nausea with vomiting Status: Acute Qualifiers: Vomiting type: unspecified Vomiting Intractability: intractable Qualified Code(s): R11.2 - Nausea with vomiting, unspecified History of Present Illness Date of Admission: 08/13/20 Chief Complaint: Persistent nausea and vomiting The patient is a 45 year old M who was seen in the emergency room at [facility] with complaints of persistent nausea and vomiting x3 days, patient denied any fever or chills. Patient is an insulin-dependent diabetic, he is under treatment chronically for a left below the knee amputation stump infection and is on daptomycin as an outpatient. He has been treated for the last 3 weeks with daptomycin. Work-up in the emergency room included labs which revealed an elevated white blood cell count at 18.8, patient had a BUN of 43, sodium of 128, chloride of 86, and an increased anion gap of 24. Patient's blood sugar was elevated at 563, urinalysis was unremarkable, patient's acetone level was large. Patient was given IV fluid administration in the emergency room. Patient will be admitted to ICU for DKA. Past Medical History Past Medical History (Chronic Problems): Chronic Problems (Last Updated 06/25/20 @ 14:54 by Estefani Jaramillo) Cellulitis (Chronic) Left lower extremity cellulitis at previous BKA stump. MRI confirmed underlying abscess Hypertension (Chronic) DM type 1 (diabetes mellitus, type 1) (Chronic) PAD (peripheral artery disease) (Chronic) Medical History: Medical History (Last Updated 06/25/20 @ 14:54 by Estefani Jaramillo) Charcot ankle M14.679 Charcot foot due to diabetes mellitus E11.610 Diabetes mellitus E11.9 History of left below knee amputation Z89.512 Neuropathy G62.9 Allergies No Known Allergies Allergy (Verified 08/13/20 13:18) Home Medications: Ambulatory Orders Medication Instructions Recorded Lisinopril [Zestril] 10 mg PO DAILY 10/04/19 Insulin Lispro [Humalog KwikPen] 6 unit SUBCUT TID 01/25/20 Daptomycin 250 ml IV DAILY 08/13/20 Gabapentin [Neurontin] 300 mg PO TID 08/13/20 Insulin Glargine,Hum.rec.anlog 22 unit SQ QHS 08/13/20 [Lantus] Pantoprazole Sodium [Protonix] 40 mg PO DAILY 08/13/20 Surgical History: - - Left below the knee amputation Psychiatric History: No pertinent psych hx Lives: Alone Smoking Status: Current every day smoker Tobacco Use: Cigarettes Alcohol: None Drugs: None - *Family History Maternal History Items: Diabetes, Heart Disease, Pulmonary Disease Paternal History Items: Cancer - Pancreatic Review of Systems Constitutional: Reports: Weakness, Fatigue. Denies: Anorexia, Chills, Fever, Night Sweats, Malaise, Weight Change Eyes: Denies: Cataracts, Conjunctivae Inflammation, Double vision, Drainage, Redness, Vision Change HEENT: Denies: Difficulty Swallowing, Dysphasia, Ear Pain, Eye Pain, Hearing Changes, Nasal bleeding, Nasal Congestion, Post Nasal Drip Cardiovascular: Denies: Chest Pain, Claudication, Chest Pressure, Chest Tightness, Palpitations Respiratory: Denies: Cough, Hemoptysis, Pleuritic Pain, Shortness of Breath, Shortness of breath at rest, Shortness of breath upon exertion, Sputum production Gastrointestinal: Reports: Nausea, Vomiting. Denies: Abdominal Pain, Constipation, Diarrhea, Hematemesis, Hematochezia, Melena Genitourinary: Denies: Dysuria, Frequency, Hematuria, Hesitancy, Nocturia, Retention, Urgency Musculoskeletal: Denies: Foot Pain, Hand Pain, Joint Pain, Joint stiffness, Joint swelling, Joint Tenderness, Leg Pain Skin: Reports: Wounds - Patient has a chronic draining area on his left stump from a previous left below the knee amputation. Denies: Dryness, Jaundice, Pruritis, Rash Neurological: Denies: Blurred vision, Double vision, Change in Speech, Slurred speech, Difficulty swallowing, Focal weakness, Headaches, Incoordination, Numbness, Tingling Psychiatric: Denies: Anxiety, Depression, Homicidal Ideations, Suicidal Ideations Endocrine: Denies: Change in Body Habitus, Heat/ Cold Intolerance, Polydipsia, Polyuria Hematologic/ Lymphatic: Denies: Adenopathy, Anemia, Easy Bruising, Easy Bleeding, Petechiae, Purpura VTE Information - Inpt Only VTE Present on Admission: No VTE Mechan Device Prophylaxis: None VTE Pharm Prophylaxis ordered?: Yes Patient Problems: Active and Suspected Problems (Last Updated 06/25/20 @ 14:54 by Estefani Jaramillo) DKA (diabetic ketoacidoses) (Acute) Vomiting (Acute) Dehydration (Acute) - Physical Exam Vitals/I&O's: Vital Signs Temp Pulse Resp BP Pulse Ox 98.3 F 112 H 19 H 170/100 H 100 08/13/20 15:30 08/13/20 15:30 08/13/20 15:30 08/13/20 15:30 08/13/20 15:30 Oxygen Delivery Method Room Air Weight: 69.4 kg Body Mass Index (BMI) 22.6 Finger Stick Blood Glucose 534 Intake and Output for Last 24 Hours 08/11/20 08/12/20 08/13/20 23:59 23:59 23:59 Intake Total 1008.87 / 1008.87 Balance 1008.87 / 1008.87 General: Alert, Oriented x3, Cooperative, No apparent distress, Well developed, Well nourished HEENT: Atraumatic, PERRLA, EOMI, Normocephalic Oral: Moist Mucosa Neck: Supple, No JVD, Trachea Midline, Thyroid Normal Size and Texture Lungs: Clear to auscultation, Normal air movement, No rhonchi, No wheeze, No rales Cardiovascular: Regular rate, Regular Rhythm, Normal S1, Normal S2, No murmurs, PMI Normal, No rub noted, No Gallop Abdomen: Bowel Sounds Present, Soft, Non Tender, Non-Distended Extremities: No clubbing, No cyanosis, No edema, Capillary Refill Less than 3 Seconds, - - A remote below the knee amputation is noted on the right with areas of eschar Skin: No rashes, No breakdown Musculoskeletal: No Tenderness to Palpation of Joints or Extremities Neurological: Cranial nerves II-XII grossly intact, Neuro grossly intact, Coordination normal Psych/Mental Status: Normal Affect, Appropriate, Alert and oriented to time, place, person, mood and affect Microbiology Past 72 Hours 08/13/20 14:05 Mucosa - Nose SARS-CoV-2 Antigen (Rapid) - Final Laboratory Results 08/13/20 13:44: WBC 18.8 H, RBC 5.33, Hgb 13.1, Hct 42.6, MCV 79.9 L, MCH 24.6 L, MCHC 30.8 L, RDW Std Deviation 44.1 H, RDW Coeff of Candace 15.3 H, Plt Count 324, MPV 10.9, Immature Gran % (Auto) 0.700, Neut % (Auto) 85.5 H, Lymph % (Auto) 8.0 L, [place] % (Auto) 5.4, Eos % (Auto) 0.1, Baso % (Auto) 0.3, Absolute Neuts (auto) 16.1 H, Absolute Lymphs (auto) 1.50, Nucleated RBC % 0 08/13/20 13:44: Sodium 128 L, Potassium 4.4, Chloride 86 L, Carbon Dioxide 18.0 L, Anion Gap 24 H, BUN 43 H, Creatinine 1.26, Estim Creat Clear Calc 70.87, Est GFR (MDRD) Af Amer 79, Est GFR (MDRD) Non-Af 65, BUN/Creatinine Ratio 34.1 H, Glucose 563 H*, Calcium 9.5, Phosphorus 4.7, Magnesium 2.3, Total Bilirubin 0.80, AST 14 L, ALT 25, Alkaline Phosphatase 124 H, Troponin I < 0.015, Total Protein 8.3 H, Albumin 3.9, Globulin 4.4 H, Albumin/Globulin Ratio 0.9 08/13/20 13:44: Acetone Level LARGE H 08/13/20 14:44: POC Glucose > 500 H* 08/13/20 15:11: Urine Color Straw, Urine Clarity Clear, Urine pH 5.0, Ur Specific Portal 1.020, Urine Protein 30 H, Urine Glucose (UA) 1000 H, Urine Ketones 150 H, Urine Occult Blood Negative, Urine Nitrite Negative, Urine Bilirubin Negative, Urine Urobilinogen Normal, Ur Leukocyte Esterase Negative, Urine RBC 0 SEEN, Urine WBC 0 SEEN, Ur Squamous Epith Cells 0 SEEN, Urine Bacteria 0 SEEN, Urine Mucus 0 SEEN Current Medications Acetaminophen (Acetaminophen 325 Mg Tablet) 650 mg PO Q6H PRN PRN PRN Reason: Pain Score 1-10/Temp > 100.7 F Dextrose (Dextrose 50%-Water 25 Gm/50 Ml Disp.Syrin) 0 gm IV X1 PRN; Protocol PRN Reason: Hypoglycemia Protocol Gabapentin (Gabapentin 300 Mg Capsule) 300 mg PO BIDCM [facility] Heparin Sodium (Beef Lung) (Heparin Pf Lock 10 Units/Ml 50 Units/5 Ml Syringe) 50 units IV UD PRN PRN Reason: PICC Line Heparin Flush Heparin Sodium (Porcine) (Heparin Injection (Vial) 5,000 Unit/Ml Vial) 5,000 unit SC Q12 [facility] Insulin Human Lispro 100 unit/ (Sodium Chloride) 100 mls @ 7.01 mls/hr CONT INF .[id number] [facility]; Protocol Last Infusion: 08/13/20 16:44 Dose: 0.04 units/kg/hr, 3 mls/hr Documented by: Sodium Chloride () 1,000 mls @ 500 mls/hr IV .Q2H [facility] Stop: 08/13/20 18:12 Sodium Chloride () 1,000 mls @ 250 mls/hr IV .Q4H [facility] Stop: 08/13/20 20:14 Sodium Chloride () 1,000 mls @ 175 mls/hr IV .[id number] [facility] Vancomycin IV Pharmacy to Dose (1 ea/ Sodium Chloride) 500 mls @ 250 mls/hr IV X1 PRN; Protocol PRN Reason: Rx to Dose Lisinopril (Lisinopril 10 Mg Tablet) 10 mg PO DAILY [facility] Morphine Sulfate (Morphine 4 Mg/Ml Syringe) 4 mg IV Q3H PRN PRN PRN Reason: Pain Score 6-10 Ondansetron HCl (Ondansetron 4 Mg/2 Ml Vial) 4 mg IV Q8H PRN PRN PRN Reason: NAUSEA/VOMITING Pantoprazole Sodium (Pantoprazole Sodium 20 Mg Tablet) 20 mg PO DAILY [facility] Sodium Chloride (0.9% Saline Lock 10 Ml Syringe) 10 - 40 ml IV UD PRN PRN Reason: Open End PICC Flush Sodium Chloride (0.9 % Nacl (Sterile) Posiflush 10 Ml) 10 - 40 ml IV UD PRN PRN Reason: Port access or dressing change Assessment/Plan All Active Problems (Last Updated 06/25/20 @ 14:54 by Estefani Jaramillo) DKA (diabetic ketoacidoses) (Acute) Vomiting (Acute) Dehydration (Acute) Nausea with vomiting (Acute) Orthopedic aftercare (Acute) #1 acute DKA-patient will be admitted to the ICU, he will be given fluids and be placed on insulin drip, labs will be monitored #2 chronic left below the knee amputation stump infection-patient will continue his present antibiotic (daptomycin) #3 uncontrolled type 1 diabetes #4 right Charcot foot secondary to type 1 diabetes #5 neuropathy secondary to type 1 diabetes Inpatient E&M: [id number] Init Hosp L3
[2020-08-13 17:46] LABS: Bedside Glucose 360 mg/dL (70-110)
[2020-08-13] MEDS: 0.9% Normal Saline 1,000 ML 250 ML IV ×2 (18:53→23:45)
[2020-08-13 18:56] LABS: Bedside Glucose 356 mg/dL (70-110)
[2020-08-13 19:46] LABS: Bedside Glucose 455 mg/dL (70-110)
[2020-08-13 19:50] LABS: Bedside Glucose 338 mg/dL (70-110)
[2020-08-13 20:51] LABS: Bedside Glucose 329 mg/dL (70-110)
[2020-08-13 21:10] LABS: Anion Gap 15 (5-15); BUN 39 mg/dL (7-18); BUN/Creat Ratio 37.1 RATIO (10-20); Calcium,Total 8.4 mg/dL (8.5-10.1); Chloride 101 mmol/L (98-107); Creatinine, Serum 1.05 mg/dL (0.70-1.30); EST Glomerular Filtration Rate 81 mL/min (>60); Est Glom Filt Rate - Afr Amer 98 mL/min (>60); Estimated Creatinine Clearance 86.29 ml/min; Glucose 323 mg/dL (74-106); Potassium 4.2 mmol/L (3.5-5.1); Sodium Level 137 mmol/L (136-145)
[2020-08-13 21:51] LABS: Bedside Glucose 310 mg/dL (70-110)
[2020-08-13 22:56] LABS: Bedside Glucose 294 mg/dL (70-110)
[2020-08-13] MEDS: Ondansetron 4 MG/2 ML Vial IV (23:13)
[2020-08-13 23:46] LABS: Bedside Glucose 298 mg/dL (70-110)
[2020-08-14] VITALS (23 sets, daily range): BP systolic 135–187; BP diastolic 72–106; PULSE 86–106; RESP 11–24; TEMP 36.6–36.8; O2SAT 96–100
[2020-08-14 00:02] LABS: Anion Gap 13 (5-15); BUN 35 mg/dL (7-18); Calcium,Total 8.3 mg/dL (8.5-10.1); Chloride 103 mmol/L (98-107); Creatinine, Serum 1.06 mg/dL (0.70-1.30); EST Glomerular Filtration Rate 80 mL/min (>60); Est Glom Filt Rate - Afr Amer 97 mL/min (>60); Estimated Creatinine Clearance 85.48 ml/min; Glucose 278 mg/dL (74-106); Sodium Level 139 mmol/L (136-145)
[2020-08-14 04:14] LABS: Absolute Lymphocyte Count 2.16 X10^3/uL (0.83-4.51); Basophil# 0.07 X10^3/uL; Basophil% 0.4 % (0-1); Eosinophil# 0.01 X10^3/uL; Eosinophils% 0.1 % (0-5); Lymphocyte # 2.16 X10^3/ul (4.0); Lymphocyte % 10.9 % (19-41); Mean Corp Hgb Conc 32.4 g/dL (32-36); Mean Corpuscular Hgb 25.6 pg (27.0-32.0); Mean Corpuscular Volume 79.3 fL (80-94); Mean Platelet Vol. 10.6 fl (6.2-12.0); Monocyte# 1.54 X10^3/uL; Monocyte% 7.7 % (0-10); NRBC Flagged by Analyzer 0 % (0-5); Neutrophil # 16.03 X10^3/uL (2.7-7.7); Neutrophil % 80.5 % (47-70); POSITIVE DIFFERENTIAL YES; Platelet Count 287 K/mm3 (150-450); RBC Distribution Width CV 15.4 % (11.6-14.6); RBC Distribution Width SD 43.8 fl (35.1-43.9); Red Blood Count 4.29 M/mm3 (4.6-6.2); White Blood Count 19.9 K/mm3 (4.4-11.0)
[2020-08-14 04:21] LABS: Differential Indicated SCAN CRITERIA MET
[2020-08-14 05:04] LABS: Anion Gap 11 (5-15); BUN 32 mg/dL (7-18); BUN/Creat Ratio 34.6 RATIO (10-20); Calcium,Total 8.1 mg/dL (8.5-10.1); Chloride 104 mmol/L (98-107); Creatinine, Serum 0.92 mg/dL (0.70-1.30); EST Glomerular Filtration Rate 93 mL/min (>60); Est Glom Filt Rate - Afr Amer 113 mL/min (>60); Estimated Creatinine Clearance 98.48 ml/min; Glucose 224 mg/dL (74-106); Sodium Level 139 mmol/L (136-145)
[2020-08-14 09:25] LABS: Bedside Glucose 236 mg/dL (70-110)
--- NOTE | 2020-08-14 10:20 | PN_ITS ---
Patient Problems: Active and Suspected Problems (Last Updated 06/25/20 @ 14:54 by Estefani Jaramillo) DKA (diabetic ketoacidoses) (Acute) Vomiting (Acute) Dehydration (Acute) Nausea with vomiting (Acute) Subjective: Patient seen and examined. He was admitted for DKA after presenting with a complaint of vomiting, and lethargy. He is now off insulin drip and is on his basal insulin. Patietn complains of feeling weak and tired. He admits to not taking his insulin as he sees he does not have any teeth and his dentures do not fit properly so he is not able to eat well. As such she has not been compliant with his insulin and has had recurrent DKA. He denies any abdominal pain, nausea or vomiting. Gap is closed and bicarb is 24. Review of systems otherwise negative. Vitals/I&O's: Vital Signs Temp Pulse Resp BP Pulse Ox 98.0 F 99 12 182/90 H 97 08/14/20 08:00 08/14/20 08:00 08/14/20 08:00 08/14/20 08:00 08/14/20 08:00 Oxygen Delivery Method Room Air Weight: 154 lb 12.232 oz Body Mass Index (BMI) 22.6 Finger Stick Blood Glucose 236 Intake and Output for Last 24 Hours 08/12/20 08/13/20 08/14/20 23:59 23:59 23:59 Intake Total 5178.08 / 5178.08 820.54 / 820.54 Output Total 800 / 800 0 / 0 Balance 4378.08 / 4378.08 820.54 / 820.54 General: Alert, Oriented x3, Cooperative, - - looks uncomfortable HEENT: Atraumatic, PERRLA, EOMI, Normocephalic Oral: Dry Mucosa Neck: Supple, No JVD, Negative Carotid Bruits Lungs: Clear to auscultation, Normal air movement, No rhonchi, No wheeze, No rales Cardiovascular: Regular rate, Regular Rhythm, Normal S1, Normal S2, No murmurs Abdomen: Bowel Sounds Present, Soft, Non Tender Extremities: No clubbing, No cyanosis, No edema, Capillary Refill Less than 3 Seconds, - - right AKA Skin: No rashes, No breakdown Musculoskeletal: No Tenderness to Palpation of Joints or Extremities Lymphatic: No Cervical, Supraclavicular, or Inguinal Adenopathy Neurological: Cranial nerves II-XII grossly intact, Neuro grossly intact Psych/Mental Status: Normal Affect, Appropriate, Alert and oriented to time, place, person, mood and affect Microbiology Past 72 Hours 08/13/20 14:05 Mucosa - Nose SARS-CoV-2 Antigen (Rapid) - Final Laboratory Results 08/13/20 13:44: WBC 18.8 H, RBC 5.33, Hgb 13.1, Hct 42.6, MCV 79.9 L, MCH 24.6 L , MCHC 30.8 L, RDW Std Deviation 44.1 H, RDW Coeff of Candace 15.3 H, Plt Count 324, MPV 10.9, Immature Gran % (Auto) 0.700, Neut % (Auto) 85.5 H, Lymph % (Auto) 8.0 L, [place] % (Auto) 5.4, Eos % (Auto) 0.1, Baso % (Auto) 0.3, Absolute Neuts (auto) 16.1 H, Absolute Lymphs (auto) 1.50, Nucleated RBC % 0 08/13/20 13:44: Sodium 128 L, Potassium 4.4, Chloride 86 L, Carbon Dioxide 18.0 L, Anion Gap 24 H, BUN 43 H, Creatinine 1.26, Estim Creat Clear Calc 70.87, Est GFR (MDRD) Af Amer 79, Est GFR (MDRD) Non-Af 65, BUN/Creatinine Ratio 34.1 H, Glucose 563 H*, Calcium 9.5, Phosphorus 4.7, Magnesium 2.3, Total Bilirubin 0.80, AST 14 L, ALT 25, Alkaline Phosphatase 124 H, Troponin I < 0.015, Total Protein 8.3 H, Albumin 3.9, Globulin 4.4 H, Albumin/Globulin Ratio 0.9 08/13/20 13:44: Acetone Level LARGE H 08/13/20 14:44: POC Glucose > 500 H* 08/13/20 15:11: Urine Color Straw, Urine Clarity Clear, Urine pH 5.0, Ur Specific [place] 1.020, Urine Protein 30 H, Urine Glucose (UA) 1000 H, Urine Ketones 150 H, Urine Occult Blood Negative, Urine Nitrite Negative, Urine Bilirubin Negative, Urine Urobilinogen Normal, Ur Leukocyte Esterase Negative, Urine RBC 0 SEEN, Urine WBC 0 SEEN, Ur Squamous Epith Cells 0 SEEN, Urine Bacteria 0 SEEN, Urine Mucus 0 SEEN 08/13/20 16:41: POC Glucose 455 H* 08/13/20 17:39: POC Glucose 360 H 08/13/20 18:49: POC Glucose 356 H 08/13/20 19:44: POC Glucose 338 H 08/13/20 19:55: Sodium 137, Potassium 4.2, Chloride 101, Carbon Dioxide 21.0, Anion Gap 15, BUN 39 H, Creatinine 1.05, Estim Creat Clear Calc 86.29, Est GFR (MDRD) Af Amer 98, Est GFR (MDRD) Non-Af 81, BUN/Creatinine Ratio 37.1 H, Glucose 323 H, Calcium 8.4 L 08/13/20 20:47: POC Glucose 329 H 08/13/20 21:46: POC Glucose 310 H 08/13/20 22:49: POC Glucose 294 H 08/13/20 23:35: Sodium 139, Potassium 4.0, Chloride 103, Carbon Dioxide 23.0, Anion Gap 13, BUN 35 H, Creatinine 1.06, Estim Creat Clear Calc 85.48, Est GFR (MDRD) Af Amer 97, Est GFR (MDRD) Non-Af 80, BUN/Creatinine Ratio 33.0 H, Glucose 278 H, Calcium 8.3 L 08/13/20 23:40: POC Glucose 298 H 08/14/20 01:34: POC Glucose 236 H 08/14/20 04:05: Sodium 139, Potassium 4.0, Chloride 104, Carbon Dioxide 24.0, Anion Gap 11, BUN 32 H, Creatinine 0.92, Estim Creat Clear Calc 98.48, Est GFR (MDRD) Af Amer 113, Est GFR (MDRD) Non-Af 93, BUN/Creatinine Ratio 34.6 H, Glucose 224 H, Calcium 8.1 L 08/14/20 04:05: WBC 19.9 H, RBC 4.29 L, Hgb 11.0 L, Hct 34.0 L, MCV 79.3 L, MCH 25.6 L, MCHC 32.4 D, RDW Std Deviation 43.8, RDW Coeff of Candace 15.4 H, Plt Count 287, MPV 10.6, Immature Gran % (Auto) 0.400, Neut % (Auto) 80.5 H, Lymph % (Auto) 10.9 L, [place] % (Auto) 7.7, Eos % (Auto) 0.1, Baso % (Auto) 0.4, Absolute Neuts (auto) 16.0 H, Absolute Lymphs (auto) 2.16, Nucleated RBC % 0, Diff Path Review May foll Diagnostic Data Chest X-Ray 08/13/20 14:10 IMPRESSION: No acute abnormality is seen. Stable examination. Electronically Signed: Guy Parson MD at 14:36 EST , Service support , Current Medications Acetaminophen (Acetaminophen 325 Mg Tablet) 650 mg PO Q6H PRN PRN PRN Reason: Pain Score 1-10/Temp > 100.7 F Dextrose (Dextrose 50%-Water 25 Gm/50 Ml Disp.Syrin) 0 gm IV X1 PRN; Protocol PRN Reason: Hypoglycemia Protocol Gabapentin (Gabapentin 300 Mg Capsule) 300 mg PO BIDCM [facility] Last Admin: 08/13/20 20:18 Dose: Not Given Documented by: Heparin Sodium (Beef Lung) (Heparin Pf Lock 10 Units/Ml 50 Units/5 Ml Syringe) 50 units IV UD PRN PRN Reason: PICC Line Heparin Flush Heparin Sodium (Porcine) (Heparin Injection (Vial) 5,000 Unit/Ml Vial) 5,000 unit SC Q12 [facility] Last Admin: 08/13/20 22:06 Dose: Not Given Documented by: Sodium Chloride () 1,000 mls @ 175 mls/hr IV .[id number] [facility] Last Admin: 08/14/20 04:43 Dose: Not Given Documented by: Daptomycin 500 mg/ Sodium (Chloride) 60 mls @ 100 mls/hr IV Q24H [facility] Stop: 08/20/20 19:35 Last Infusion: 08/13/20 20:14 Dose: Infused Documented by: Insulin Glargine (Insulin Glargine 100 Units/Ml Pen) 22 units SC QHS [facility] Last Admin: 08/14/20 00:31 Dose: 22 u Documented by: Insulin Human Lispro (Insulin Lispro 100 Unit/Ml Insuln.Pen) 0 unit SC ACHS [facility]; Protocol Lisinopril (Lisinopril 10 Mg Tablet) 10 mg PO DAILY PEPITO Morphine Sulfate (Morphine 4 Mg/Ml Syringe) 4 mg IV Q3H PRN PRN PRN Reason: Pain Score 6-10 Ondansetron HCl (Ondansetron 4 Mg/2 Ml Vial) 4 mg IV Q8H PRN PRN PRN Reason: NAUSEA/VOMITING Last Admin: 08/13/20 23:13 Dose: 4 mg Documented by: Pantoprazole Sodium (Pantoprazole Sodium 20 Mg Tablet) 20 mg PO DAILY [facility]PITO Sodium Chloride (0.9% Saline Lock 10 Ml Syringe) 10 - 40 ml IV UD PRN PRN Reason: Open End PICC Flush Sodium Chloride (0.9 % Nacl (Sterile) Posiflush 10 Ml) 10 - 40 ml IV UD PRN PRN Reason: Port access or dressing change STROKE Vital Signs/Narrative: Vital Signs Temp Pulse Resp BP Pulse Ox 08/14/20 08:00 98.0 F 99 12 182/90 H 97 08/14/20 07:00 95 11 L 166/83 H 97 Medical Necessity - Tobacco Use Smoking Status: Current every day smoker Tobacco Use: Cigarettes Assessment/Plan All Active Problems (Last Updated 06/25/20 @ 14:54 by Estefani Jaramillo) DKA (diabetic ketoacidoses) (Acute) Vomiting (Acute) Dehydration (Acute) Nausea with vomiting (Acute) Orthopedic aftercare (Acute) #DKA in poorly controlled diabetes with peripheral neuropathy * gap has now closed, and he is off heparin drip * now on his basal insulin. He admits to not being compliant with his diabetes meds * continue basal insulin lantus 22units qhs. will adjust dose as needed based on blood sugars * last A1C was 12.1 in January 2020 * will check A1C * will refer to endocrinology on discharge * on gabapentin. * ISS. Accuchecks ACHS * #Chronic left AKA stump infection * follows up at wound clinic. 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 * to follow up with podiatry on outpatient basis * #Leucocytosis: * wbc is 19.9 today. * No clear source of infection apart from his stump infection for which he is on daptomycin. * WIll trend wbc. * Get blood cultures and urinalysis #Hypertension; poorly controlled. BP up in the 180s systolic today. on lisinopril 10mg daily. Will increase to 20mg daily. IV hydralazine prn. DVT prophylaxis:heparin Disposition; transfer to regular floor Inpatient E&M: [id number] [facility] Hosp L3
[2020-08-14] MEDS: Insulin Lispro 100 UNIT/ML INSULN.PEN SC ×2 (10:34→13:12)
[2020-08-14] MEDS: Ondansetron 4 MG/2 ML Vial IV (10:38)
[2020-08-14 10:50] LABS: Bedside Glucose 189 mg/dL (70-110)
--- NOTE | 2020-08-14 11:48 | CASEMGMT ---
RN CM Assessment Note Introduced role of CM to patient in room. Demographics, PCP verified. Patient states he lives alone in apartment. Admits to having difficulty with ADL and IADL. States he has aides that come in 3x week. They assist with meals, cleaning and transportation. Pt has not had them assist with bathing and states he has not had bath/shower in a long time. RN CM let him know aides are there to assist him with baths and he should let them help him. Nurse states pt stated he smokes marijuana and took substance he thought was cocaine last Thursday, but thought it was really Meth. -will update Gabriel social services designee Presentation: persistent nausea and vomiting Diagnosis: DKA PCP: Katie Alvarez NP is primary care currently for patient and will go to his home. Specialists: none Insurance: [employer] Preferred Pharmacy: [facility] Prescription Benefit: yes LNOK: BrotherChristiano Living Arrangements: Lives in apartment. No stairs Tranportation: DME: wheelchair, walker. No home oxygen or cpap. Blood glucose monitor and supplies- pt would like [facility] and has spoken with physician re: outpatient ordering of this. HHC: [facility]. PH: FX: -Call to update that patient is in hospital. Patient is receiving SN/PT/OT. SN for IV antibiotics, wound care for his BKA and PICC line dressing changes. Will need to resume care on discharge. Home IV antibiotic provider: [facility]: FAX: -called [facility] Pharm[facility]: message left for pharmacist to contact CM re: protocol for resuming IV medications on dc and verification of which medication he was receiving at home. -Patient was receiving Daptomycin 500 mg IV Q 24 hours at home. -On discharge, a new script will be needed for the IV antibiotic on dc (even if it stays the same). [facility]: Abby Lorenzana CM. PH: FX: -Called, spoke with Dameon Cardenas to update pt is in hospital. -Aide services 3x week MWF through [employer] . Message left updating pt is in hospital. -Meals through [employer] SNF: NO Access Control Specialist: admitted drug use Patient DC Goals: Home. Pt refused to discuss SNF. DC Plan: anticipate home [facility], [facility] infusion and Aiders through [facility] CM available for discharge planning coordination. Contact CM for any concerns/needs that may arise. Kimberley NUNEZN RN ACM
[2020-08-14 12:47] LABS: Pathologist Review Reviewed
[2020-08-14 12:56] LABS: Bedside Glucose 223 mg/dL (70-110)
--- NOTE | 2020-08-14 13:28 | CASEMGMT ---
SW met w/pt in room in regard to substance abuse and mental health. SW asked about pt's substance abuse. Initially pt stated to SW that he didn't need to speak w/SW about his substance abuse. He then told SW he took something and was given the wrong thing. Pt states he does not normally have access to drugs and this isn't normally an issue for him. Pt declined any resources in regard to substance abuse. SW then asked pt about his mental health, pt states he is not doing well, but denied being suicidal. Pt also declined any resources for counseling. SW remains available for resources or support to pt. NOAH Pope
--- NOTE | 2020-08-14 13:50 | NURSING ---
wound photo: left stump
[2020-08-14 16:50] LABS: Bedside Glucose 104 mg/dL (70-110)
[2020-08-14] MEDS: 0.9% Saline Lock 10 ML Syringe IV (20:04)
[2020-08-14] MEDS: Heparin Injection (Vial) 5,000 UNIT/ML VIAL 5000 UNIT SC (22:55)
[2020-08-14] MEDS: Glucerna Shake 120 ML LIQUID PO (22:55)
[2020-08-14 23:01] LABS: Bedside Glucose 230 mg/dL (70-110)
[2020-08-15] VITALS (9 sets, daily range): BP systolic 124–177; BP diastolic 77–99; PULSE 74–103; RESP 13–18; TEMP 36.5–37.1; O2SAT 95–99
[2020-08-15] MEDS: 0.9% Saline Lock 10 ML Syringe IV ×5 (06:54→21:35)
[2020-08-15 07:01] LABS: Bedside Glucose 184 mg/dL (70-110)
[2020-08-15 07:05] LABS: Absolute Lymphocyte Count 2.22 X10^3/uL (0.83-4.51); Absolute Neutrophil Count 6.6 X10^3/uL (2.0-7.7); Basophil# 0.08 X10^3/uL; Basophil% 0.8 % (0-1); Eosinophil# 0.12 X10^3/uL; Eosinophils% 1.2 % (0-5); Hemoglobin 10.7 g/dL (13.0-16.5); Lymphocyte # 2.22 X10^3/ul (4.0); Lymphocyte % 22.2 % (19-41); Mean Corp Hgb Conc 31.5 g/dL (32-36); Mean Corpuscular Hgb 24.9 pg (27.0-32.0); Mean Corpuscular Volume 79.3 fL (80-94); Mean Platelet Vol. 10.7 fl (6.2-12.0); Monocyte# 0.91 X10^3/uL; Monocyte% 9.1 % (0-10); NRBC Flagged by Analyzer 0 % (0-5); Neutrophil # 6.62 X10^3/uL (2.7-7.7); Neutrophil % 66.1 % (47-70); Platelet Count 233 K/mm3 (150-450); RBC Distribution Width CV 14.8 % (11.6-14.6); RBC Distribution Width SD 42.9 fl (35.1-43.9); Red Blood Count 4.29 M/mm3 (4.6-6.2)
[2020-08-15 07:22] LABS: Anion Gap 6 (5-15); BUN 17 mg/dL (7-18); BUN/Creat Ratio 26.9 RATIO (10-20); Calcium,Total 8.2 mg/dL (8.5-10.1); Chloride 100 mmol/L (98-107); Creatinine, Serum 0.63 mg/dL (0.70-1.30); EST Glomerular Filtration Rate 145 mL/min (>60); Est Glom Filt Rate - Afr Amer 175 mL/min (>60); Estimated Creatinine Clearance 146.31 ml/min; Glucose 173 mg/dL (74-106); Potassium 3.3 mmol/L (3.5-5.1); Sodium Level 134 mmol/L (136-145)
[2020-08-15] MEDS: Gabapentin 300 MG Capsule PO ×2 (08:09→16:49)
[2020-08-15] MEDS: Pantoprazole Sodium 20 MG Tablet PO (08:10)
[2020-08-15] MEDS: Heparin Injection (Vial) 5,000 UNIT/ML VIAL 5000 UNIT SC ×2 (08:10→21:27)
[2020-08-15] MEDS: Lisinopril 20 MG Tablet PO (08:10)
--- NOTE | 2020-08-15 08:38 | EKG12_ITS ---
Test Reason : CP Blood Pressure : / mmHG Vent. Rate : 078 BPM Atrial Rate : 078 BPM P-R Int : 146 ms QRS Dur : 084 ms QT Int : 400 ms P-R-T Axes : 059 -02 007 degrees QTc Int : 456 ms Normal sinus rhythm Normal ECG When compared with ECG of 13-AUG-2020 13:54, MANUAL COMPARISON REQUIRED, DATA IS UNCONFIRMED Confirmed by KATARINA GUY, LIZETTE ([id number]), image editor BILL MURRAY ([id number]) on 08/20/2020 12:52:27 PM Referred By: ADRIANE Confirmed By:JAMIL BRAY MD
--- NOTE | 2020-08-15 11:40 | PN_ITS ---
Patient Problems: Active and Suspected Problems (Last Updated 06/25/20 @ 14:54 by Estefani Jaramillo) DKA (diabetic ketoacidoses) (Acute) Vomiting (Acute) Dehydration (Acute) Nausea with vomiting (Acute) Subjective: Patient seen and examined. He has a myriad of somatic complaints today. He complains of throat pain, which he thinks is from the excessive vomiting prior to his admission. he also complains of left sided chest pain, which he says has been going on for sometime, ever since he had his PICC line inserted, as he thinks the line goes into his heart. He describes the chest pain as pressure like. he also complains of abdominal pain which he thinks is due to his gastroparesis. He thinks he vomited blood also at home, though he hasnt had any such bloody emesis whilst on admission. His blood pressure is elevated this morning. Chemistry significant for potassium of 3.3. Amador is 10.7, which is around his baseline. Vitals/I&O's: Vital Signs Temp Pulse Resp BP Pulse Ox 98.7 F 84 16 177/99 H 97 08/15/20 08:00 08/15/20 08:00 08/15/20 08:00 08/15/20 08:00 08/15/20 08:00 Oxygen Delivery Method Room Air Weight: 155 lb 10.342 oz Body Mass Index (BMI) 22.6 Finger Stick Blood Glucose 236 Intake and Output for Last 24 Hours 08/13/20 08/14/20 08/15/20 23:59 23:59 23:59 Intake Total 5178.08 / 5178.08 1330.54 / 1330.54 Output Total 800 / 800 1750 / 1750 800 / 800 Balance 4378.08 / 4378.08 -419.46 / -419.46 -800 / -800 General: Alert, Oriented x3, Cooperative, - - HEENT: Atraumatic, PERRLA, EOMI, Normocephalic Oral: Dry Mucosa Neck: Supple, No JVD, Negative Carotid Bruits Lungs: Clear to auscultation, Normal air movement, No rhonchi, No wheeze, No rales Cardiovascular: Regular rate, Regular Rhythm, Normal S1, Normal S2, No murmurs Abdomen: Bowel Sounds Present, Soft, Non Tender Extremities: No clubbing, No cyanosis, No edema, Capillary Refill Less than 3 Seconds, - - right BKA; stump has slight discharge. Skin: No rashes, No breakdown Musculoskeletal: No Tenderness to Palpation of Joints or Extremities Lymphatic: No Cervical, Supraclavicular, or Inguinal Adenopathy Neurological: Cranial nerves II-XII grossly intact, Neuro grossly intact Psych/Mental Status: Normal Affect, Appropriate, Alert and oriented to time, place, person, mood and affect Microbiology Past 72 Hours 08/14/20 13:00 Wound Drainage - Aerobic & Anaerobic Swabs Gram Stain - Final 08/13/20 14:05 Mucosa - Nose SARS-CoV-2 Antigen (Rapid) - Final Laboratory Results 08/14/20 04:05: Diff Path Review Reviewed 08/14/20 12:49: POC Glucose 223 H 08/14/20 16:37: POC Glucose 104 08/14/20 22:53: POC Glucose 230 H 08/15/20 06:50: WBC 10.0, RBC 4.29 L, Hgb 10.7 L, Hct 34.0 L, MCV 79.3 L, MCH 24.9 L, MCHC 31.5 L, RDW Std Deviation 42.9, RDW Coeff of Candace 14.8 H, Plt Count 233, MPV 10.7, Immature Gran % (Auto) 0.600, Neut % (Auto) 66.1, Lymph % (Auto) 22.2, [place] % (Auto) 9.1, Eos % (Auto) 1.2, Baso % (Auto) 0.8, Absolute Neuts (auto) 6.6, Absolute Lymphs (auto) 2.22, Nucleated RBC % 0 08/15/20 06:50: Sodium 134 L, Potassium 3.3 L, Chloride 100, Carbon Dioxide 28.0, Anion Gap 6, BUN 17, Creatinine 0.63 L, Estim Creat Clear Calc 146.31, Est GFR (MDRD) Af Amer 175, Est GFR (MDRD) Non-Af 145, BUN/Creatinine Ratio 26.9 H, Glucose 173 H, Calcium 8.2 L 08/15/20 06:51: POC Glucose 184 H 08/15/20 09:35: Troponin I < 0.015 Diagnostic Data Chest X-Ray 08/13/20 14:10 IMPRESSION: No acute abnormality is seen. Stable examination. Electronically Signed: Guy Parson MD at 14:36 EST , Service support , Current Medications Acetaminophen (Acetaminophen 325 Mg Tablet) 650 mg PO Q6H PRN PRN PRN Reason: Pain Score 1-10/Temp > 100.7 F Dextrose (Dextrose 50%-Water 25 Gm/50 Ml Disp.Syrin) 0 gm IV X1 PRN; Protocol PRN Reason: Hypoglycemia Protocol Gabapentin (Gabapentin 300 Mg Capsule) 300 mg PO BIDCM [facility] Last Admin: 08/15/20 08:09 Dose: 300 mg Documented by: Heparin Sodium (Beef Lung) (Heparin Pf Lock 10 Units/Ml 50 Units/5 Ml Syringe) 50 units IV UD PRN PRN Reason: PICC Line Heparin Flush Heparin Sodium (Porcine) (Heparin Injection (Vial) 5,000 Unit/Ml Vial) 5,000 unit SC Q12 [facility] Last Admin: 08/15/20 08:10 Dose: 5,000 unit Documented by: Hydralazine HCl (Hydralazine 20 Mg/Ml Vial) 10 mg IV Q6H PRN PRN PRN Reason: BLOOD PRESSURE ELEVATION Daptomycin 500 mg/ Sodium (Chloride) 60 mls @ 100 mls/hr IV Q24H [facility] Stop: 08/20/20 19:35 Last Infusion: 08/14/20 20:30 Dose: Infused Documented by: Insulin Glargine (Insulin Glargine 100 Units/Ml Pen) 22 units SC QHS [facility] Last Admin: 08/14/20 23:03 Dose: 22 u Documented by: Insulin Human Lispro (Insulin Lispro 100 Unit/Ml Insuln.Pen) 0 unit SC ACHS [facility]; Protocol Last Admin: 08/15/20 06:55 Dose: Not Given Documented by: Lisinopril (Lisinopril 20 Mg Tablet) 20 mg PO DAILY [facility] Last Admin: 08/15/20 08:10 Dose: 20 mg Documented by: Metoclopramide HCl (Metoclopramide 10 Mg/2 Ml Vial) 5 mg IV Q6H PRN PRN PRN Reason: nausea/GERD Morphine Sulfate (Morphine 4 Mg/Ml Syringe) 4 mg IV Q3H PRN PRN PRN Reason: Pain Score 6-10 Nutritional Formula (Lactose Free) (Glucerna Shake 120 Ml Liquid) 120 ml PO 4X/DAY PEPITO Last Admin: 08/15/20 08:11 Dose: Not Given Documented by: Ondansetron HCl (Ondansetron 4 Mg/2 Ml Vial) 4 mg IV Q8H PRN PRN PRN Reason: NAUSEA/VOMITING Last Admin: 08/14/20 10:38 Dose: 4 mg Documented by: Pantoprazole Sodium (Pantoprazole Sodium 40 Mg Tablet) 40 mg PO DAILY [facility] Phenol/Menthol (Phenol/Sodium Phenolate 180ml) 3 spray MM Q2H PRN PRN PRN Reason: SORE THROAT Sodium Chloride (0.9% Saline Lock 10 Ml Syringe) 10 - 40 ml IV UD PRN PRN Reason: Open End PICC Flush Last Admin: 08/15/20 06:54 Dose: 30 ml Documented by: Sodium Chloride (0.9 % Nacl (Sterile) Posiflush 10 Ml) 10 - 40 ml IV UD PRN PRN Reason: Port access or dressing change STROKE Vital Signs/Narrative: Vital Signs Temp Pulse Resp BP Pulse Ox 08/15/20 08:00 98.7 F 84 16 177/99 H 97 Medical Necessity - Tobacco Use Smoking Status: Current every day smoker Tobacco Use: Cigarettes Assessment/Plan All Active Problems (Last Updated 06/25/20 @ 14:54 by Estefani Jaramillo) DKA (diabetic ketoacidoses) (Acute) Vomiting (Acute) Dehydration (Acute) Nausea with vomiting (Acute) Orthopedic aftercare (Acute) #DKA in poorly controlled diabetes with peripheral neuropathy * DKA has now resolved. * on lantus 22IU qhs. ISS. Accuchecks ACHS * A1C: pending * on gabapentin. * follow up with endocrinology on outpatient basis. * * #Chronic left AKA stump infection * follows up at wound clinic. 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 * to follow up with podiatry on outpatient basis * #Somatic symptoms * He complains of chest pain abdominal pain, vomiting which he states was bloody while he was at home but has not had any here. * Hemoglobin is around 10.5. EKG done showed normal sinus rhythm with no acute ST changes. Troponin checked is also negative. * Will hold off on further work-up for now. Will check stool for occult blood. If hemoglobin falls, will consider general surgery consult. * #Leucocytosis: * resolved. Wbc is down to 10 * was likely reactive from DKA * #Hypokalemia: K is 3.3 today. Will replace. #Hypertension; * poorly controlled. * On lisinopril 20 mg daily. Lisinopril dose was increased yesterday. * IV hydralazine as needed. * We will continue monitoring blood pressure and adjust medications as needed. DVT prophylaxis:heparin Inpatient E&M: [id number] Subs Hosp L2
[2020-08-15] MEDS: Phenol/Sodium Phenolate 180ML 3 SPRAY MM (11:55)
[2020-08-15] MEDS: Pantoprazole Sodium 40 MG Tablet PO (11:56)
[2020-08-15 12:05] LABS: Bedside Glucose 160 mg/dL (70-110)
--- NOTE | 2020-08-15 12:19 | CASEMGMT ---
BASILIO received a message to call Abby Lorenzana with [facility]. BASILIO called Abby and gave her patient's admission information. She asked that BASILIO fax d/c instructions when he is discharged. Mariza BETHEA MSW
--- NOTE | 2020-08-15 15:15 | CASEMGMT ---
BASILIO noted in Physical Therapy's evaluation patient indicated he wants to increase his aid services. BASILIO called Abby Winkleron patient's case management rn with [facility] and left her a voice mail letting her know patient would like increased aide services. Mariza BETHEA MSW
[2020-08-15] MEDS: Insulin Lispro 100 UNIT/ML INSULN.PEN SC ×2 (16:50→21:29)
[2020-08-15 16:56] LABS: Bedside Glucose 244 mg/dL (70-110)
[2020-08-15] MEDS: Glucerna Shake 120 ML LIQUID PO (21:27)
[2020-08-15] MEDS: Morphine 4 MG/ML Syringe IV (21:35)
[2020-08-15 21:36] LABS: Bedside Glucose 287 mg/dL (70-110)
[2020-08-16 03:00] VITALS: PULSE 73
[2020-08-16 04:00] VITALS: BP 156/100; PULSE 82; RESP 18; TEMP 36.7; O2SAT 99
[2020-08-16] MEDS: 0.9% Saline Lock 10 ML Syringe IV ×6 (04:01→18:00)
[2020-08-16] MEDS: Morphine 4 MG/ML Syringe IV ×3 (04:01→14:12)
--- NOTE | 2020-08-16 06:22 | PCS.PANDOC ---
PANDEMIC DOCUMENTATION INITIATED: Date: 08/13/2020 Time: 1520
[2020-08-16 06:30] LABS: Absolute Lymphocyte Count 2.43 X10^3/uL (0.83-4.51); Absolute Neutrophil Count 3.5 X10^3/uL (2.0-7.7); Basophil# 0.07 X10^3/uL; Basophil% 1.1 % (0-1); Eosinophil# 0.12 X10^3/uL; Eosinophils% 1.8 % (0-5); Hemoglobin 10.6 g/dL (13.0-16.5); Lymphocyte # 2.43 X10^3/ul (4.0); Lymphocyte % 36.7 % (19-41); Mean Corp Hgb Conc 31.2 g/dL (32-36); Mean Corpuscular Hgb 24.8 pg (27.0-32.0); Mean Corpuscular Volume 79.6 fL (80-94); Mean Platelet Vol. 10.6 fl (6.2-12.0); Monocyte# 0.52 X10^3/uL; Monocyte% 7.8 % (0-10); NRBC Flagged by Analyzer 0 % (0-5); Neutrophil # 3.47 X10^3/uL (2.7-7.7); Neutrophil % 52.3 % (47-70); Platelet Count 218 K/mm3 (150-450); RBC Distribution Width CV 14.6 % (11.6-14.6); Red Blood Count 4.27 M/mm3 (4.6-6.2); White Blood Count 6.6 K/mm3 (4.4-11.0)
[2020-08-16] MEDS: Insulin Lispro 100 UNIT/ML INSULN.PEN SC ×3 (06:48→17:04)
[2020-08-16 06:56] LABS: Bedside Glucose 192 mg/dL (70-110)
[2020-08-16 07:00] VITALS: PULSE 69
[2020-08-16 07:10] LABS: Anion Gap 6 (5-15); BUN 14 mg/dL (7-18); BUN/Creat Ratio 26.3 RATIO (10-20); Calcium,Total 8.1 mg/dL (8.5-10.1); Chloride 101 mmol/L (98-107); Creatinine, Serum 0.53 mg/dL (0.70-1.30); EST Glomerular Filtration Rate 177 mL/min (>60); Est Glom Filt Rate - Afr Amer 214 mL/min (>60); Estimated Creatinine Clearance 172.68 ml/min; Glucose 199 mg/dL (74-106); Potassium 3.6 mmol/L (3.5-5.1); Sodium Level 135 mmol/L (136-145)
[2020-08-16] MEDS: Ondansetron 4 MG/2 ML Vial IV (08:17)
[2020-08-16 08:56] VITALS: BP 141/95; PULSE 93; RESP 16; TEMP 36.7; O2SAT 99
[2020-08-16] MEDS: Heparin Injection (Vial) 5,000 UNIT/ML VIAL 5000 UNIT SC (09:05)
[2020-08-16] MEDS: Gabapentin 300 MG Capsule PO ×2 (09:05→17:05)
[2020-08-16] MEDS: Lisinopril 20 MG Tablet PO (09:06)
[2020-08-16] MEDS: Pantoprazole Sodium 40 MG Tablet PO (09:06)
--- NOTE | 2020-08-16 09:51 | CASEMGMT ---
Addendum entered by Naomi Gomez 08/16/20 11:49: Call to Rebecca at [facility] infusion to advise them that per Dr. Khoury, pt will no longer need home infusions at discharge today, voices understanding at this time. Pt states that he still has supplies at home and Rebecca states they will be in contact with pt regarding same. Call to Alejandra at [facility] intake to notify of discharge/resumption of care and that pt will no longer be on infusion, voices understanding at this time. H&P, facesheet, D/C instructions, and DARIEN order faxed to [facility] at this time. This RN GRICELDA will fax D/C summary once obtained. Pt updated on all at this time, voices understanding. Radha GUTIERREZ CM Addendum entered by Naomi Gomez 08/16/20 11:00: This RN GRICELDA updated Dr. Khoury on stop date for Daptomycin at this time and he states today can be last dose of dapto and PICC line can be pulled prior to discharge. Dr. Khoury states pt can be placed on po antibx and that pt would like to f/u at [facility] wound clinic after discharge. Call back from Dr. Sevilla's office, they are updated on all and they state Dr. Victoria is ortho at [facility] that did surgery on pt and pt is to f/u with him. Dr. Victoria's contact info placed on discharge f/u at this time. Mónica GUTIERREZ and Shar, PCU charge, updated on all, voice understanding. Radha GUTIERREZ CM Original Note: Pt's infectious doctor is Dr. Sevilla at [facility] phone: [phone] fax: [phone] and call to office at this time. Per office, pt's stop date for daptomycin is 08/20/20 at this time. The office is messaging the physician at this time to see what plan of care is and this RN GRICELDA offered to fax clinicals to office for Dr. Sevilla at this time but office assistant receptionist states she will call this RN CM back. electric meter repairer helper states pt does not have a f/u appt scheduled at this time. CM to follow. Radha GUTIERREZ CM
--- NOTE | 2020-08-16 10:18 | NURSING ---
[facility] to [facility] up an appt for patient after discharge. Referral placed in the computer. The [facility] states that Jordy will follow up and call pt with an appt time. Wound Center is aware patient needs an afternoon appt.
[2020-08-16 11:25] LABS: Bedside Glucose 362 mg/dL (70-110)
--- NOTE | 2020-08-16 11:45 | PCM.DC ---
- Discharge Diagnoses Current Active Problems: Current Active and Chronic Problems (Last Updated 06/25/20 @ 14:54 by Estefani Jaramillo) DKA (diabetic ketoacidoses) (Acute) Vomiting (Acute) Dehydration (Acute) Nausea with vomiting (Acute) Cellulitis (Chronic) Left lower extremity cellulitis at previous BKA stump. MRI confirmed underlying abscess Hypertension (Chronic) DM type 1 (diabetes mellitus, type 1) (Chronic) PAD (peripheral artery disease) (Chronic) You will use the following diet at home:: Calorie/Carbohydrate Controlled (specify 1200, 1400, etc) Your food should be the consistency of: Regular Your liquids should be the consistency of: Regular/Thin Discharge Activity: Return to Normal Activity Weight Bearing Status: Weight bearing as tolerated Call your doctor if you observe: Fever of 101 or Higher, Shortness of breath, Dizziness, Fainting spells, Swelling in the ankles, Increased palpitations (irregular heartbeat) Instructions: Checking for Ketones, Ketone Bodies (Blood) Additional Instructions: to follow up at wound care center for care of his stump infection Allergies/Adverse Reactions: Allergies No Known Allergies Allergy (Verified 08/13/20 13:18) Medications to take at Discharge Lisinopril [Zestril] 10 mg PO DAILY 10/04/19 Insulin Lispro [Humalog KwikPen] 6 unit SUBCUT TID 01/25/20 Gabapentin [Neurontin] 300 mg PO TID 08/13/20 Insulin Glargine,Hum.rec.anlog [Lantus] 22 unit SQ QHS 08/13/20 Pantoprazole Sodium [Protonix] 40 mg PO DAILY 08/13/20 Doxycycline 100 mg PO BID 14 Days #28 cap 08/16/20 The following prescriptions were given: Doxycycline 100 mg PO BID 14 Days #28 cap Transmission Status: Pending to [address] Primary Care Physician: Shayna Winkler [Primary Care Provider] - Please follow up with your Primary Care Physician in: 1-2 weeks Test Results: Test results from this visit will be discussed in further detail at your follow-up appointment, if applicable. Please Follow Up With: Dr. Orlando Victoria When: Please make follow up appt Please Follow Up With: [facility] When: They should call you to schedule appointment. Please Follow Up With: Orlando Khoury MD When: 2-3 weeks Proposed Discharge Date: 08/16/20
[2020-08-16 11:50] LABS: Bedside Glucose 368 mg/dL (70-110)
--- NOTE | 2020-08-16 11:52 | CASEMGMT ---
RN said patient needs a ride home at discharge. RN said he will not be ready until 8p at the earliest due to receiving and antibiotic. Patient has [facility]. BASILIO called patient's insurance and was transferred to Provide a ride. BASILIO arranged for picker tender via wheelchair transport. They will pick him up between 8 and 9p. The confirmation number is [id number]. She said if there are any problems the direct number to Provide a Ride is [phone] and option 3. BASILIO notified MATT MADISON who will let patient know as she is going in his room. BASILIO will notify RN. Mariza BETHEA MSW
--- NOTE | 2020-08-16 14:24 | PHA.DC.MC ---
Pharmacy Service has performed discharge medication reconciliation and counseling for this patient. 1. DOXYCYCLINE 100MG PO BID X 14 DAYS The patient's discharge medication list was reviewed for discrepancies and discrepancies were resolved. Home Medications Lisinopril [Zestril] 10 mg PO DAILY 10/04/19 Insulin Lispro [Humalog KwikPen] 6 unit SUBCUT TID 01/25/20 Gabapentin [Neurontin] 300 mg PO TID 08/13/20 Insulin Glargine,Hum.rec.anlog [Lantus] 22 unit SQ QHS 08/13/20 Pantoprazole Sodium [Protonix] 40 mg PO DAILY 08/13/20 Doxycycline 100 mg PO BID 14 Days #28 cap 08/16/20 The patient was counseled on the following discharge medications and changes in medications for homegoing were reviewed. The Reason for Use, instructions for use, and potential side effects were reviewed for all new medications. The patient's questions regarding all of their medications were answered. The patient was able to verbally demonstrate an understanding of their discharge medications. Patient counseled by student finance specialist
[2020-08-16 14:43] VITALS: PULSE 87
--- NOTE | 2020-08-16 14:48 | CASEMGMT ---
BASILIO called Abby Lorenzana at [facility] and let her know patient is being discharged today with resumption of his home health. BASILIO faxed her discharge instructions and med list. Mariza BETHEA MSW
--- NOTE | 2020-08-16 15:28 | PCM.DC.SUM ---
Discharge Date and Diagnosis - Problem List Patient Problems: Active and Suspected Problems (Last Updated 06/25/20 @ 14:54 by Estefani Jaramillo) DKA (diabetic ketoacidoses) (Acute) Vomiting (Acute) Dehydration (Acute) Nausea with vomiting (Acute) Date of Admission: 08/13/20 Date of Discharge: 08/16/20 - Primary Discharge Diagnosis Acute Problems: Active Problems (Last Updated 06/25/20 @ 14:54 by Estefani Jaramillo) DKA (diabetic ketoacidoses) (Acute) Vomiting (Acute) Dehydration (Acute) Nausea with vomiting (Acute) LLE BKA chronic stump infection - Secondary Discharge Diagnosis Chronic Problems: Chronic Problems (Last Updated 06/25/20 @ 14:54 by Estefani Jaramillo) Cellulitis (Chronic) Left lower extremity cellulitis at previous BKA stump. MRI confirmed underlying abscess Hypertension (Chronic) DM type 1 (diabetes mellitus, type 1) (Chronic) PAD (peripheral artery disease) (Chronic) Hospital Course and Treatment Imaging Results: Diagnostic Data Chest X-Ray 08/13/20 14:10 IMPRESSION: No acute abnormality is seen. Stable examination. 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 Symptoms have been going on for about 3 days. He was on insulin but admitted to not being compliant with his insulin as he said he did not have any teeth and so could not eat well and did not think he should take his insulin. Review of symptoms otherwise negative. In the ED, labs showed elevated white cell count of 18.8 and sodium was 128 with BUN of 43 and chloride of 86 as well as anion gap of 24. Blood sugar was 563 and he had large acetones in his blood. Urinalysis was unremarkable. He was admitted to the ICU and managed for DKA due to noncompliance with insulin. He was hydrated with IV fluids and started on insulin drip. Gap eventually closed. He was continued on daptomycin which had been on on outpatient basis for about 3 weeks as treatment for the chronic left BKA stump infection. Patient said he had had surgery at [facility] and after that he got infection of the stump and had been put on daptomycin. Patient was transferred out of the ICU to the regular floor after DKA resolved. Per patient's request, ID was consulted here as patient said he did not have a clearly established follow-up for his left lower extremity wound infection once he was discharged from here and he preferred not to follow-up with [facility]. Per ID, PICC line was discontinued and patient was discharged home on doxycycline 100 mg twice daily for 2 weeks. He is to follow-up at the wound care center and is follow-up with his primary care doctor and infectious diseases. Patient was also counseled to be compliant with his insulin. Patient seen and examined prior to discharge. He had no complaints and his only worry was about the follow-up of his left BKA stump. Review of symptoms otherwise negative. Labs and vitals reviewed. Home medication reviewed and reconciled. O/E: Vital Signs Temp Pulse Resp BP Pulse Ox 98.1 F 87 16 141/95 H 99 08/16/20 08:56 08/16/20 14:43 08/16/20 08:56 08/16/20 08:56 08/16/20 08:56 [] General: Alert, Oriented x3, Cooperative, - - HEENT: Atraumatic, PERRLA, EOMI, Normocephalic Oral: Dry Mucosa Neck: Supple, No JVD, Negative Carotid Bruits Lungs: Clear to auscultation, Normal air movement, No rhonchi, No wheeze, No rales Cardiovascular: Regular rate, Regular Rhythm, Normal S1, Normal S2, No murmurs Abdomen: Bowel Sounds Present, Soft, Non Tender Extremities: No clubbing, No cyanosis, No edema, Capillary Refill Less than 3 Seconds, - - left BKA stump with scant discharge. Skin: No rashes, No breakdown Musculoskeletal: No Tenderness to Palpation of Joints or Extremities Lymphatic: No Cervical, Supraclavicular, or Inguinal Adenopathy Neurological: Cranial nerves II-XII grossly intact, Neuro grossly intact Psych/Mental Status: Normal Affect, Appropriate, Alert and oriented to time, place, person, mood and affect Plan is to discharge home today on PO doxycycline 100mg bid x 14 days as above. Patient Problems: Active and Suspected Problems (Last Updated 06/25/20 @ 14:54 by Estefani Jaramillo) DKA (diabetic ketoacidoses) (Acute) Vomiting (Acute) Dehydration (Acute) Nausea with vomiting (Acute) - Physical Exam Vitals/I&O's: Vital Signs Temp Pulse Resp BP Pulse Ox 98.1 F 87 16 141/95 H 99 08/16/20 08:56 08/16/20 14:43 08/16/20 08:56 08/16/20 08:56 08/16/20 08:56 Oxygen Delivery Method Room Air Weight: 154 lb 8.705 oz Body Mass Index (BMI) 22.6 Finger Stick Blood Glucose 236 Intake and Output for Last 24 Hours 08/14/20 08/15/20 08/16/20 23:59 23:59 23:59 Intake Total 1330.54 / 1330.54 640 / 760 460 / 460 Output Total 1750 / 1750 1500 / 2250 1075 / 1075 Balance -419.46 / -419.46 -860 / -1490 -615 / -615 Microbiology Past 72 Hours 08/14/20 13:00 Wound Drainage - Aerobic & Anaerobic Swabs Gram Stain - Final 08/14/20 13:00 Wound Drainage - Aerobic & Anaerobic Swabs Wound Culture - Final Staphylococcus aureus 08/14/20 13:00 Wound Drainage - Aerobic & Anaerobic Swabs Anaerobic Culture - Preliminary Checking for anaerobes, further studies to follow. 08/13/20 14:05 Mucosa - Nose SARS-CoV-2 Antigen (Rapid) - Final Laboratory Results 08/15/20 06:50: Hemoglobin A1c 14.0 H 08/15/20 16:48: POC Glucose 244 H 08/15/20 21:28: POC Glucose 287 H 08/16/20 06:21: WBC 6.6, RBC 4.27 L, Hgb 10.6 L, Hct 34.0 L, MCV 79.6 L, MCH 24.8 L, MCHC 31.2 L, RDW Std Deviation 42.0, RDW Coeff of Candace 14.6, Plt Count 218, MPV 10.6, Immature Gran % (Auto) 0.300, Neut % (Auto) 52.3, Lymph % (Auto) 36.7, [place] % (Auto) 7.8, Eos % (Auto) 1.8, Baso % (Auto) 1.1 H, Absolute Neuts (auto) 3.5, Absolute Lymphs (auto) 2.43, Nucleated RBC % 0 08/16/20 06:21: Sodium 135 L, Potassium 3.6, Chloride 101, Carbon Dioxide 28.0, Anion Gap 6, BUN 14, Creatinine 0.53 L, Estim Creat Clear Calc 172.68, Est GFR (MDRD) Af Amer 214, Est GFR (MDRD) Non-Af 177, BUN/Creatinine Ratio 26.3 H, Glucose 199 H, Calcium 8.1 L 08/16/20 06:47: POC Glucose 192 H 08/16/20 11:21: POC Glucose 362 H 08/16/20 11:29: POC Glucose 368 H Current Medications Acetaminophen (Acetaminophen 325 Mg Tablet) 650 mg PO Q6H PRN PRN PRN Reason: Pain Score 1-10/Temp > 100.7 F Dextrose (Dextrose 50%-Water 25 Gm/50 Ml Disp.Syrin) 0 gm IV X1 PRN; Protocol PRN Reason: Hypoglycemia Protocol Gabapentin (Gabapentin 300 Mg Capsule) 300 mg PO BIDCM [facility] Last Admin: 08/16/20 09:05 Dose: 300 mg Documented by: Heparin Sodium (Beef Lung) (Heparin Pf Lock 10 Units/Ml 50 Units/5 Ml Syringe) 50 units IV UD PRN PRN Reason: PICC Line Heparin Flush Heparin Sodium (Porcine) (Heparin Injection (Vial) 5,000 Unit/Ml Vial) 5,000 unit SC Q12 [facility] Last Admin: 08/16/20 09:05 Dose: 5,000 unit Documented by: Hydralazine HCl (Hydralazine 20 Mg/Ml Vial) 10 mg IV Q6H PRN PRN PRN Reason: BLOOD PRESSURE ELEVATION Daptomycin 500 mg/ Sodium (Chloride) 60 mls @ 100 mls/hr IV Q24H [facility] Stop: 08/20/20 19:35 Last Infusion: 08/15/20 19:10 Dose: Infused Documented by: Insulin Glargine (Insulin Glargine 100 Units/Ml Pen) 22 units SC QHS [facility] Last Admin: 08/15/20 21:28 Dose: 22 u Documented by: Insulin Human Lispro (Insulin Lispro 100 Unit/Ml Insuln.Pen) 0 unit SC [facility]; Protocol Last Admin: 08/16/20 11:31 Dose: 4 u Documented by: Lisinopril (Lisinopril 20 Mg Tablet) 20 mg PO DAILY [facility] Last Admin: 08/16/20 09:06 Dose: 20 mg Documented by: Metoclopramide HCl (Metoclopramide 10 Mg/2 Ml Vial) 5 mg IV Q6H PRN PRN PRN Reason: nausea/GERD Morphine Sulfate (Morphine 4 Mg/Ml Syringe) 4 mg IV Q3H PRN PRN PRN Reason: Pain Score 6-10 Last Admin: 08/16/20 14:12 Dose: 4 mg Documented by: Nutritional Formula (Lactose Free) (Glucerna Shake 120 Ml Liquid) 120 ml PO 4X/DAY [facility] Last Admin: 08/16/20 12:44 Dose: Not Given Documented by: Ondansetron HCl (Ondansetron 4 Mg/2 Ml Vial) 4 mg IV Q8H PRN PRN PRN Reason: NAUSEA/VOMITING Last Admin: 08/16/20 08:17 Dose: 4 mg Documented by: Pantoprazole Sodium (Pantoprazole Sodium 40 Mg Tablet) 40 mg PO DAILY [facility] Last Admin: 08/16/20 09:06 Dose: 40 mg Documented by: Phenol/Menthol (Phenol/Sodium Phenolate 180ml) 3 spray MM Q2H PRN PRN PRN Reason: SORE THROAT Last Admin: 08/15/20 11:55 Dose: 3 spr Documented by: Sodium Chloride (0.9% Saline Lock 10 Ml Syringe) 10 - 40 ml IV UD PRN PRN Reason: Open End PICC Flush Last Admin: 08/16/20 14:13 Dose: 10 ml Documented by: Sodium Chloride (0.9 % Nacl (Sterile) Posiflush 10 Ml) 10 - 40 ml IV UD PRN PRN Reason: Port access or dressing change Discharge Diet: 1800 Calorie Control Diet Discharge Activity: Return to Normal Activity Weight Bearing Status: Weight bearing as tolerated Call your doctor if you observe: Fever of 101 or Higher, Shortness of breath, Dizziness, Fainting spells, Swelling in the ankles, Increased palpitations (irregular heartbeat) Home Medications: Medications to take at Discharge Lisinopril [Zestril] 10 mg PO DAILY 10/04/19 Insulin Lispro [Humalog KwikPen] 6 unit SUBCUT TID 01/25/20 Gabapentin [Neurontin] 300 mg PO TID 08/13/20 Insulin Glargine,Hum.rec.anlog [Lantus] 22 unit SQ QHS 08/13/20 Pantoprazole Sodium [Protonix] 40 mg PO DAILY 08/13/20 Doxycycline 100 mg PO BID 14 Days #28 cap 08/16/20 Following Prescriptions Were Given to Patient: Doxycycline 100 mg PO BID 14 Days #28 cap Transmission Status: Received by [facility] Primary Care Physician: Shayna Winkler [Primary Care Provider] - Please follow up with your Primary Care Physician in: 1-2 weeks Please Follow Up With: Dr. Orlando Victoria When: Please make follow up appt Please Follow Up With: [facility] When: They should call you to schedule appointment. Please Follow Up With: Orlando Khoury MD When: 2-3 weeks Please Follow Up With: Shayna Winkler Patient Instructions: Ketone Bodies (Blood), Checking for Ketones Disposition: Home with Home Health Minutes spent on discharge:: 45 Patient Condition:: Stable Medical Necessity - Tobacco Use Smoking Status: Current every day smoker Tobacco Use: Cigarettes Meaningful Use Info Meaningful Use Diagnoses (Choose all that apply): None applicable Inpatient E&M: [id number] [facility]
--- NOTE | 2020-08-16 15:43 | PCM.HP.ID ---
Problem List (1) Osteomyelitis Status: Acute Reason for Consult: osteo Consulted by: Dr. Miranda History of Present Illness: The patient is a 45 year old M with uncontrolled DM, L BKA 2018, had revision at [facility] about a month ago with about 4 inches of bone resected. Seen by Dr. Sevilla with ID, discharged on iv dapto via picc for 6 week course. Still some ongoing purulent drainage, followed by home health, but no other followups since discharge. Developed n/v and DKA, admitted to [facility], dapto continued, feeling better. No fever. Full ROS performed and neg except as noted above. - Medical History Past Medical History (Chronic Problems): Chronic Problems (Last Updated 06/25/20 @ 14:54 by Estefani Jaramillo) Cellulitis (Chronic) Left lower extremity cellulitis at previous BKA stump. MRI confirmed underlying abscess Hypertension (Chronic) DM type 1 (diabetes mellitus, type 1) (Chronic) PAD (peripheral artery disease) (Chronic) Allergies/Adverse Reactions: Allergies No Known Allergies Allergy (Verified 08/13/20 13:18) Home Medications: Ambulatory Orders Medication Instructions Recorded Lisinopril [Zestril] 10 mg PO DAILY 10/04/19 Insulin Lispro [Humalog KwikPen] 6 unit SUBCUT TID 01/25/20 Gabapentin [Neurontin] 300 mg PO TID 08/13/20 Insulin Glargine,Hum.rec.anlog 22 unit SQ QHS 08/13/20 [Lantus] Pantoprazole Sodium [Protonix] 40 mg PO DAILY 08/13/20 Doxycycline 100 mg PO BID 14 Days #28 cap 08/16/20 - Social History Tobacco Use: cigarettes Vital Signs Temp Pulse Resp BP Pulse Ox 98.1 F 87 16 141/95 H 99 08/16/20 08:56 08/16/20 14:43 08/16/20 08:56 08/16/20 08:56 08/16/20 08:56 Oxygen Delivery Method Room Air Weight: 70.1 kg Body Mass Index (BMI) 22.6 Finger Stick Blood Glucose 236 Microbiology Past 72 Hours 08/14/20 13:00 Gram Stain - Final Wound Drainage - Aerobic & Anaerobic Swabs Wound Culture - Final Staphylococcus aureus Anaerobic Culture - Preliminary Checking for anaerobes, further studies to follow. 08/13/20 14:05 SARS-CoV-2 Antigen (Rapid) - Final Mucosa - Nose Laboratory Tests Past 24 Hrs 08/15/20 08/16/20 08/16/20 06:50 06:21 06:21 WBC 6.6 RBC 4.27 L Hgb 10.6 L Hct 34.0 L MCV 79.6 L MCH 24.8 L MCHC 31.2 L RDW Std Deviation 42.0 RDW Coeff of Candace 14.6 Plt Count 218 MPV 10.6 Immature Gran % (Auto) 0.300 Neut % (Auto) 52.3 Lymph % (Auto) 36.7 [place] % (Auto) 7.8 Eos % (Auto) 1.8 Baso % (Auto) 1.1 H Absolute Neuts (auto) 3.5 Absolute Lymphs (auto) 2.43 Nucleated RBC % 0 Sodium 135 L Potassium 3.6 Chloride 101 Carbon Dioxide 28.0 Anion Gap 6 BUN 14 Creatinine 0.53 L Estim Creat Clear Calc 172.68 Est GFR (MDRD) Af Amer 214 Est GFR (MDRD) Non-Af 177 BUN/Creatinine Ratio 26.3 H Glucose 199 H Hemoglobin A1c 14.0 H Calcium 8.1 L - Other Studies Radiology: [] reviewed Other Studies: [] Route of nutrition/ use of supplements: [] Nutritional Intake: [] IV Site: [] Brady Catheter: [] - Physical Exam General: Alert, Oriented x3, Cooperative, No apparent distress HEENT: Atraumatic, PERRLA, EOMI Neck: Supple, No Nodes Lungs: Clear to auscultation, Normal air movement Cardiovascular: Regular rate, Regular Rhythm Abdomen: Soft, Non Tender, Non-Distended Extremities: No edema Skin: Ulcer/ Wound - L BKA stump no redness or induration, small amount of purulence IV Site: PICC, without redness Musculoskeletal: No Tenderness to Palpation of Joints or Extremities Neurological: Cranial nerves II-XII grossly intact - Assessment/Plan Antibiotics: [] Assessment/Plan: [] Active and Suspected Problems (Last Updated 06/25/20 @ 14:54 by Estefani Jaramillo) DKA (diabetic ketoacidoses) (Acute) Vomiting (Acute) Dehydration (Acute) Nausea with vomiting (Acute) MRSA L BKA stump infection - ok to pull picc, stop dapto. Course was to complete 08/20/20. Will order 2 week course po doxy, wound care followup with ID as needed. Pt is agreeable to this plan. Will follow as needed, thank you, d/w Dr. Miranda
--- NOTE | 2020-08-16 15:54 | CASEMGMT ---
D/C summary faxed to [facility] at this time. Radha GUTIERREZ CM
[2020-08-16 17:15] LABS: Bedside Glucose 298 mg/dL (70-110)
[2020-08-16 18:01] VITALS: BP 151/93; PULSE 93; RESP 20; TEMP 35.9; O2SAT 98
== END 2020-08-16 20:10 | disposition home health service (06) | DRG 638 ==
LOC: ED 15:13 → ICU 15:22 → PCU 08-14 15:37
PROVIDERS: Admitting Provider Internal Medicine; Emergency Provider Emergency Medicine; PCP Family Medicine; Visit Provider Student in an Organized Health Care Education/Training Program
DX: E10.10 Type 1 diabetes mellitus with ketoacidosis without coma (principal); T87.44 Infection of amputation stump, left lower extremity; L03.116 Cellulitis of left lower limb; B95.62 Methicillin resistant Staphylococcus aureus infection as the cause of diseases classified elsewhere; Y83.5 Amputation of limb(s) as the cause of abnormal reaction of the patient, or of later complication, without mention of misadventure at the time of the procedure; E87.6 Hypokalemia; E10.51 Type 1 diabetes mellitus with diabetic peripheral angiopathy without gangrene; E10.610 Type 1 diabetes mellitus with diabetic neuropathic arthropathy; E10.42 Type 1 diabetes mellitus with diabetic polyneuropathy; I10 Essential (primary) hypertension; E86.0 Dehydration; Z91.14 Patient's other noncompliance with medication regimen; T38.3X6A Underdosing of insulin and oral hypoglycemic [antidiabetic] drugs, initial encounter; Z20.822 Contact with and (suspected) exposure to COVID-19; F17.210 Nicotine dependence, cigarettes, uncomplicated; Z79.2 Long term (current) use of antibiotics; Z79.4 Long term (current) use of insulin; Z79.899 Other long term (current) drug therapy
CPT/HCPCS: 36592; 71045; 80048; 80053; 81001; 82009; 82962; 83036; 83735; 84100; 84484; 85025; 87070; 87075; 87077; 87186; 87205; 87426; 93005; 94762; 97161; 97166; 97535; 97802; 99285; J0878; J7030; A4216; J2405; J3490

== ENCOUNTER → 2020-09-02 | Outpatient (CLI) | payer MEDICARE, MEDICAID, SELFPAY ==
[2020-08-29 15:08] VITALS: BMI 22.6
[2020-09-02 18:25] LABS: Absolute Lymphocyte Count 2.22 X10^3/uL (0.83-4.51); Absolute Neutrophil Count 5.6 X10^3/uL (2.0-7.7); Basophil# 0.11 X10^3/uL; Basophil% 1.3 % (0-1); Eosinophil# 0.21 X10^3/uL; Eosinophils% 2.4 % (0-5); Hematocrit 38.8 % (40-54); Hemoglobin 11.9 g/dL (13.0-16.5); Lymphocyte # 2.22 X10^3/ul (4.0); Lymphocyte % 25.5 % (19-41); Mean Corp Hgb Conc 30.7 g/dL (32-36); Mean Corpuscular Hgb 24.2 pg (27.0-32.0); Mean Corpuscular Volume 78.9 fL (80-94); Mean Platelet Vol. 11.2 fl (6.2-12.0); Monocyte# 0.52 X10^3/uL; NRBC Flagged by Analyzer 0 % (0-5); Neutrophil # 5.62 X10^3/uL (2.7-7.7); Neutrophil % 64.5 % (47-70); Platelet Count 271 K/mm3 (150-450); RBC Distribution Width CV 15.3 % (11.6-14.6); RBC Distribution Width SD 43.6 fl (35.1-43.9); Red Blood Count 4.92 M/mm3 (4.6-6.2); White Blood Count 8.7 K/mm3 (4.4-11.0)
[2020-09-02 18:29] LABS: Erythrocyte Sedimentation Rate 23 mm/hr (0-20)
[2020-09-02 19:03] LABS: ALB/GLOB Ratio 1.1 RATIO (0.9-2.4); AST(SGOT) 65 U/L (15-37); Alanine Aminotransfer ALT/SGPT 91 U/L (16-61); Albumin, Serum 3.7 g/dL (3.2-5.0); Alkaline Phosphatase 105 U/L (45-117); Anion Gap 6 (5-15); BUN 17 mg/dL (7-18); BUN/Creat Ratio 25.5 RATIO (10-20); CRP < 2.90 mg/L (0.0-3.0); Calcium,Total 8.9 mg/dL (8.5-10.1); Chloride 98 mmol/L (98-107); Cholesterol 195 mg/dL (200); Creatinine, Serum 0.67 mg/dL (0.70-1.30); EST Glomerular Filtration Rate 137 mL/min (>60); Est Glom Filt Rate - Afr Amer 165 mL/min (>60); Globulin 3.5 g/dL (2.2-4.2); Glucose 354 mg/dL (74-106); High Density Lipoprotein 82 mg/dL; Potassium 4.8 mmol/L (3.5-5.1); Protein, Total 7.2 g/dL (6.4-8.2); Sodium Level 133 mmol/L (136-145); T4 Total, Thyroxin 10.5 ug/dL (4.5-12.1); Thyroid Stim Hormone (TSH) 0.71 uIU/mL (0.358-3.74); Triglycerides 75 mg/dL; Very Low Density Lipoprotein 15 mg/dL (5-40)
[2020-09-02 19:49] LABS: Hemoglobin A1c 13.6 % (3.8-5.6)
[2020-09-04 12:07] LABS: HEPATITIS B SURFACE AG Negative (Negative); Hepatitis A AB, Total Positive (Negative); Hepatitis A IgM Antibody Negative (Negative); Hepatitis B Core AB IgM Negative (Negative); Hepatitis B Core Ab Total Negative (Negative); Hepatitis C Ab >11.0 s/co ratio (0.0-0.9)
[2020-09-04 14:10] LABS: Hep B Surface Antibodies Non Reactive (.)
== END | disposition home or self-care (01) ==
PROVIDERS: PCP Internal Medicine; Referring Provider Internal Medicine; Visit Provider Internal Medicine
DX: E10.65 Type 1 diabetes mellitus with hyperglycemia (principal); T87.44 Infection of amputation stump, left lower extremity
CPT/HCPCS: 80053; 80061; 83036; 84436; 84443; 85025; 85652; 86140; 86704; 86705; 86706; 86708; 86709; 86803; 87340

== ENCOUNTER 2020-09-12 14:45 | Outpatient (RCR) | payer MEDICARE, MEDICAID, SELFPAY ==
[2020-08-13 16:14] VITALS: BMI 22.6
[2020-08-22 15:30] VITALS: BP 131/96; PULSE 98; RESP 18; TEMP 36.1; BMI 22.6
--- NOTE | 2020-08-22 21:10 | PCM.WC.PN ---
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 Status: Acute Code(s): L97.922 - Non-pressure chronic ulcer of unspecified part of left lower leg with fat layer exposed (2) DM type 1 (diabetes mellitus, type 1) Status: Chronic Qualifiers: Code(s): E10.9 - Type 1 diabetes mellitus without complications (3) PAD (peripheral artery disease) Status: Chronic Code(s): I73.9 - Peripheral vascular disease, unspecified Type of Wound Date of Service: 08/22/20 - Physical Exam Vital Signs Temp Pulse Resp BP 97 F L 98 18 131/96 H 08/22/20 15:30 08/22/20 15:30 08/22/20 15:30 08/22/20 15:30 Wound Measurements and Assessment WC - Nurse 1 - General Ulcer Measurement Start: 08/22/20 15:27 Freq: Status: Active Protocol: Activity Type Activity Date Activity User E-Sign Co-Sign Detail Recorded Client Recorded Date Recorded By Document 08/22/20 15:27 RB [id number] 08/22/20 15:29 RB 08/22/20 15:27 Wound Center Nurse 1 [Ulcer Assessment] 1. left BKA -Combined with other wound No -Current Size (cm) - Length 0.4 -Current Size (cm) - Width 8 -Current Size (cm) - Depth 0.2 -Total Square Cm 3.2 -Photo Taken Yes -Tunneling No -Undermining/Tunneling No -Circular Undermining No -Exudate Amt Small -Exudate Type Purulent -Wound Margin Distinct, Outline Attached -Granulation Amt Medium (34-66%) -Granulation Quality [place] -Slough/Fibrin Yes -Necrosis Amt Small (1-33%) -Necrotic Tissue Type Adherent Slough -Structure Exposed N/A -Texture (Eliza-wound Skin Appearance) Assessed, Scarring -Moisture (Eliza-wound Skin Appearance Assessed ) -Color (Eliza-wound Skin Appearance) Assessed -Temperature (Eliza-wound Skin No Abnormality Appearance) (Pt Warm) -Tenderness on Palpation (Eliza-wound No Skin Appearance) -Ulcer Cleansing Wound Cleanser -Foul Odor after Cleansing No -Anesthetic Used 4% Lidocaine Solution WC - Nurse 2 - General Ulcer CM Notes Start: 08/22/20 15:27 Freq: Status: Active Protocol: Activity Type Activity Date Activity User E-Sign Co-Sign Detail Recorded Client Recorded Date Recorded By Document 08/22/20 15:43 [id number] 08/22/20 15:46 08/22/20 15:43 Wound Center Nurse 2 [Procedure/Treatment] -Time 15:44 -Correct Patient Yes -Correct Side, Site, Position Yes -Correct Procedure Yes -Procedure Performed Yes -Type of Procedure Debridement -Clinical Debridement Subcutaneous -Tissue Removed Subcutaneous -Post Debridement (cm) - Length 0.7 -Post Debridement (cm) - Width 5 -Post Debridement (cm) - Depth 0.7 -Total Square (Post) (cm) 3.5 -Area of Debridement (cm) - Length 0.7 -Area of Debridement (cm) - Width 5 -Total Square (Area) (cm) 3.5 -Tunneling No -Undermining/Tunneling No -Circular Undermining No -Wound/Ulcer Outcome Not Healed -Ulcer Cleansing Rinsed/ Irrigated with Saline -Foul Odor after Cleansing No -Bioengineered Tissue No -Bleeding Controlled with Pressure -Offloading No -Treatment Response Procedure Tolerated Well -Debridement - Subq, 1st 20sq cm Yes [See Physician Procedure note for Specifics] Pain Scale: 0-10 Numeric [Pain] -Is Patient Pain Free? Yes - Nurse 3 - General Ulcer D/C NN Start: 08/22/20 15:27 Freq: Status: Active Protocol: Activity Type Activity Date Activity User E-Sign Co-Sign Detail Recorded Client Recorded Date Recorded By Document 08/22/20 15:48 [id number] 08/22/20 15:48 08/22/20 15:48 Wound Care Nurse 3 [Wound Dressing] 1. left BKA -Ulcer Cleansing Rinsed/ Irrigated with Saline -Foul Odor after Cleansing No -Primary Dressing Applied Aquacel AG 2x2 -Primary Dressing Covered/Secured Dry Gauze,Dry with Gauze & Roll Gauze,Secured with Tape -Aquacel AG 2x2 1 Pain Scale: 0-10 Numeric [Pain] -Is Patient Pain Free? Yes - Visit Discharge [Visit Discharge Information] -Discharge Condition Stable -Ambulatory Status Wheelchair -Transportation Private Auto -Medication Reconcilliation completed Yes & provided to patient/care provider -Clinical Summary of Care Provided Yes Debridement Note Post-Debridement Measurements/Treatment - Nurse 2 - General Ulcer CM Notes Start: 08/22/20 15:27 Freq: Status: Active Protocol: Activity Type Activity Date Activity User E-Sign Co-Sign Detail Recorded Client Recorded Date Recorded By Document 08/22/20 15:43 [id number] 08/22/20 15:46 08/22/20 15:43 Wound Center Nurse 2 1. left BKA -Time 15:44 -Correct Patient Yes -Correct Side, Site, Position Yes -Correct Procedure Yes -Procedure Performed Yes -Type of Procedure Debridement -Clinical Debridement Subcutaneous -Tissue Removed Subcutaneous -Post Debridement (cm) - Length 0.7 -Post Debridement (cm) - Width 5 -Post Debridement (cm) - Depth 0.7 -Total Square (Post) (cm) 3.5 -Area of Debridement (cm) - Length 0.7 -Area of Debridement (cm) - Width 5 -Total Square (Area) (cm) 3.5 -Tunneling No -Undermining/Tunneling No -Circular Undermining No -Wound/Ulcer Outcome Not Healed -Ulcer Cleansing Rinsed/ Irrigated with Saline -Foul Odor after Cleansing No -Bioengineered Tissue No -Bleeding Controlled with Pressure -Offloading No -Treatment Response Procedure Tolerated Well -Debridement - Subq, 1st 20sq cm Yes Pain Scale: 0-10 Numeric Is Patient Pain Free? Yes - Nurse 3 - General Ulcer D/C NN Start: 08/22/20 15:27 Freq: Status: Active Protocol: Activity Type Activity Date Activity User E-Sign Co-Sign Detail Recorded Client Recorded Date Recorded By Document 08/22/20 15:48 [email or web address] [id number] 08/22/20 15:48 08/22/20 15:48 Wound Care Nurse 3 1. left BKA -Ulcer Cleansing Rinsed/ Irrigated with Saline -Foul Odor after Cleansing No -Primary Dressing Applied Aquacel AG 2x2 -Primary Dressing Covered/Secured with Dry Gauze,Dry Gauze & Roll Gauze,Secured with Tape -Aquacel AG 2x2 1 Pain Scale: 0-10 Numeric Is Patient Pain Free? Yes - Visit Discharge Discharge Condition Stable Ambulatory Status Wheelchair Transportation Private Auto Medication Reconcilliation completed & Yes provided to patient/care provider Clinical Summary of Care Provided Yes Wound debrided: leg Laterality: Left Type of Debridement: Excisional debridement Anesthesia Used: 5% Lidocaine Gel Depth: in the subcutaneous layer Percentage of wound debrided: 100 Instrument Used: #15 blade Tissue Removed: fibrous, devitalized subcutaneous, biofilm, slough Severity: Fat Layer Exposed Amount of bleeding with debridement: Mild Bleeding Controlled with: Pressure Patient tolerated procedure well
--- NOTE | 2020-08-22 21:13 | HP.PCM_ITS ---
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 Status: Acute Code(s): L97.922 - Non-pressure chronic ulcer of unspecified part of left lower leg with fat layer exposed (2) DM type 1 (diabetes mellitus, type 1) Status: Chronic Qualifiers: Diabetes mellitus complication status: without complication Qualified Code(s): E10.9 - Type 1 diabetes mellitus without complications Code(s): E10.9 - Type 1 diabetes mellitus without complications (3) PAD (peripheral artery disease) Status: Chronic Code(s): I73.9 - Peripheral vascular disease, unspecified History of Present Illness Date of Service: 08/22/20 Chief Complaint: left leg ulcer with concern of infection History of Wound: This 45-year-old male with multiple comorbidities including uncontrolled diabetes with an A1c level of 14% complains of a nonhealing left leg ulcer at his previous below-knee amputation stump site. He has been changing the dressing with a silver alginate. This below-knee amputation of the left lower extremity surgery was initially performed at an outside facility in 2018 and it is noted he had a drainage performed at [facility] in January 2020 with orthopedic surgeon, Dr. Nickerson. He also reports he had a revision performed at [facility] about 1 month ago in which additional bone was resected. At that time he was diagnosed with a MRSA infection and was seen by infectious disease specialist, Dr. Sevilla. He was placed on a 6-week course of IV daptomycin. It is noted recently within the past 1-1/2 weeks he was again admitted at [facility] for diabetic ketoacidosis. His stump site was recultured which ultimately demonstrated rare MRSA growth again. He was seen by infectious disease specialist, Dr. Khoury who recommended a 2- week course of doxycycline. This patient is concerned that there is still purulence and a deep abscess. He also relates he keeps being treated by doctors in many facilities and is very hard for him to keep his medical information straight and communicated appropriately to all of his providers. He is very upset during his visit. He continues to smoke but daily and relates he does not check his glucose levels. He also relates he was recently seen by cobol engineer, Dr. Ferrara who was evaluating him for right Charcot treatment including potential brace. He denies recent redness or odor to the left stump since he has been discharged. He has rest pain to his right limb and also his left stump site as well. He denies having history of noninvasive vascular studies. He relates his pain is moderate and even disrupts his sleep. Past Medical History Past Medical History: Chronic Problems (Last Updated 06/25/20 @ 14:54 by Estefani Jaramillo) Cellulitis (Chronic) Left lower extremity cellulitis at previous BKA stump. MRI confirmed underlying abscess Hypertension (Chronic) DM type 1 (diabetes mellitus, type 1) (Chronic) PAD (peripheral artery disease) (Chronic) Past Medical History: Uncontrolled diabetes, hypertension, history of diabetic ketoacidosis, history of amputation, tobacco user, history of Charcot lower extremity Surgical History: - - Left below the knee amputation with revisions and I & D Allergies/Adverse Reactions: Allergies No Known Allergies Allergy (Verified 08/13/20 13:18) Home Medications: Ambulatory Orders Medication Instructions Recorded Lisinopril [Zestril] 10 mg PO DAILY 10/04/19 Insulin Lispro [Humalog KwikPen] 6 unit SUBCUT TID 01/25/20 Gabapentin [Neurontin] 300 mg PO TID 08/13/20 Insulin Glargine,Hum.rec.anlog 22 unit SQ QHS 08/13/20 [Lantus] Pantoprazole Sodium [Protonix] 40 mg PO DAILY 08/13/20 Doxycycline 100 mg PO BID 14 Days #28 cap 08/16/20 - Family History Maternal Diabetes, Heart Disease, Pulmonary Disease Paternal Cancer - Pancreatic Smoking Status: Heavy Smoker (>10/day) Review of Systems Constitutional: Denies: Chills, Fever Cardiovascular: Reports: Claudication Respiratory: Denies: Shortness of Breath Gastrointestinal: Denies: Nausea Musculoskeletal: Reports: Leg Pain Skin: Reports: Skin Changes, Wounds Neurological: Reports: Incoordination, Numbness - Physical Exam Vital Signs Temp Pulse Resp BP 97 F L 98 18 131/96 H 08/22/20 15:30 08/22/20 15:30 08/22/20 15:30 08/22/20 15:30 General: Alert, Oriented x3, Cooperative, No apparent distress HEENT: Atraumatic Extremities: No cyanosis, Capillary Refill Less than 3 Seconds, Edema - Mild edema to left below-knee amputation stump site without specific bogginess or fluctuance on palpation., - - Left below-knee amputation Skin: Ulcer/ Wound - There is no purulence on expression, no erythema, no odor, no streaking to the left below-knee amputation anterior stump site. There is no probing to deep structures Wound Measurements and Assessment WC - Nurse 1 - General Ulcer Measurement Start: 08/22/20 15:27 Freq: Status: Active Protocol: Activity Type Activity Date Activity User E-Sign Co-Sign Detail Recorded Client Recorded Date Recorded By Document 08/22/20 15:27 RB [id number] 08/22/20 15:29 RB 08/22/20 15:27 Wound Center Nurse 1 [Ulcer Assessment] 1. left BKA -Combined with other wound No -Current Size (cm) - Length 0.4 -Current Size (cm) - Width 8 -Current Size (cm) - Depth 0.2 -Total Square Cm 3.2 -Photo Taken Yes -Tunneling No -Undermining/Tunneling No -Circular Undermining No -Exudate Amt Small -Exudate Type Purulent -Wound Margin Distinct, Outline Attached -Granulation Amt Medium (34-66%) -Granulation Quality [place] -Slough/Fibrin Yes -Necrosis Amt Small (1-33%) -Necrotic Tissue Type Adherent Slough -Structure Exposed N/A -Texture (Eliza-wound Skin Appearance) Assessed, Scarring -Moisture (Eliza-wound Skin Appearance Assessed ) -Color (Eliza-wound Skin Appearance) Assessed -Temperature (Eliza-wound Skin No Abnormality Appearance) (Pt Warm) -Tenderness on Palpation (Eliza-wound No Skin Appearance) -Ulcer Cleansing Wound Cleanser -Foul Odor after Cleansing No -Anesthetic Used 4% Lidocaine Solution WC - Nurse 2 - General Ulcer CM Notes Start: 08/22/20 15:27 Freq: Status: Active Protocol: Activity Type Activity Date Activity User E-Sign Co-Sign Detail Recorded Client Recorded Date Recorded By Document 08/22/20 15:43 [email or web address] [id number] 08/22/20 15:46 [id number] 08/22/20 15:43 Wound Center Nurse 2 [Procedure/Treatment] -Time 15:44 -Correct Patient Yes -Correct Side, Site, Position Yes -Correct Procedure Yes -Procedure Performed Yes -Type of Procedure Debridement -Clinical Debridement Subcutaneous -Tissue Removed Subcutaneous -Post Debridement (cm) - Length 0.7 -Post Debridement (cm) - Width 5 -Post Debridement (cm) - Depth 0.7 -Total Square (Post) (cm) 3.5 -Area of Debridement (cm) - Length 0.7 -Area of Debridement (cm) - Width 5 -Total Square (Area) (cm) 3.5 -Tunneling No -Undermining/Tunneling No -Circular Undermining No -Wound/Ulcer Outcome Not Healed -Ulcer Cleansing Rinsed/ Irrigated with Saline -Foul Odor after Cleansing No -Bioengineered Tissue No -Bleeding Controlled with Pressure -Offloading No -Treatment Response Procedure Tolerated Well -Debridement - Subq, 1st 20sq cm Yes [See Physician Procedure note for Specifics] Pain Scale: 0-10 Numeric [Pain] -Is Patient Pain Free? Yes - Nurse 3 - General Ulcer D/C NN Start: 08/22/20 15:27 Freq: Status: Active Protocol: Activity Type Activity Date Activity User E-Sign Co-Sign Detail Recorded Client Recorded Date Recorded By Document 08/22/20 15:48 [id number] 08/22/20 15:48 08/22/20 15:48 Wound Care Nurse 3 [Wound Dressing] 1. left BKA -Ulcer Cleansing Rinsed/ Irrigated with Saline -Foul Odor after Cleansing No -Primary Dressing Applied Aquacel AG 2x2 -Primary Dressing Covered/Secured Dry Gauze,Dry with Gauze & Roll Gauze,Secured with Tape -Aquacel AG 2x2 1 Pain Scale: 0-10 Numeric [Pain] -Is Patient Pain Free? Yes - Visit Discharge [Visit Discharge Information] -Discharge Condition Stable -Ambulatory Status Wheelchair -Transportation Private Auto -Medication Reconcilliation completed Yes & provided to patient/care provider -Clinical Summary of Care Provided Yes Musculoskeletal: Muscle Wasting Neurological: - - Lack of normal epicritic sensation light touch is consistent with neuropathy status Psych/Mental Status: Normal Affect, Appropriate Debridement Note Post-Debridement Measurements/Treatment - Nurse 2 - General Ulcer CM Notes Start: 08/22/20 15:27 Freq: Status: Active Protocol: Activity Type Activity Date Activity User E-Sign Co-Sign Detail Recorded Client Recorded Date Recorded By Document 08/22/20 15:43 [id number] 08/22/20 15:46 08/22/20 15:43 Wound Center Nurse 2 1. left BKA -Time 15:44 -Correct Patient Yes -Correct Side, Site, Position Yes -Correct Procedure Yes -Procedure Performed Yes -Type of Procedure Debridement -Clinical Debridement Subcutaneous -Tissue Removed Subcutaneous -Post Debridement (cm) - Length 0.7 -Post Debridement (cm) - Width 5 -Post Debridement (cm) - Depth 0.7 -Total Square (Post) (cm) 3.5 -Area of Debridement (cm) - Length 0.7 -Area of Debridement (cm) - Width 5 -Total Square (Area) (cm) 3.5 -Tunneling No -Undermining/Tunneling No -Circular Undermining No -Wound/Ulcer Outcome Not Healed -Ulcer Cleansing Rinsed/ Irrigated with Saline -Foul Odor after Cleansing No -Bioengineered Tissue No -Bleeding Controlled with Pressure -Offloading No -Treatment Response Procedure Tolerated Well -Debridement - Subq, 1st 20sq cm Yes Pain Scale: 0-10 Numeric Is Patient Pain Free? Yes - Nurse 3 - General Ulcer D/C NN Start: 08/22/20 15:27 Freq: Status: Active Protocol: Activity Type Activity Date Activity User E-Sign Co-Sign Detail Recorded Client Recorded Date Recorded By Document 08/22/20 15:48 [id number] 08/22/20 15:48 08/22/20 15:48 Wound Care Nurse 3 1. left BKA -Ulcer Cleansing Rinsed/ Irrigated with Saline -Foul Odor after Cleansing No -Primary Dressing Applied Aquacel AG 2x2 -Primary Dressing Covered/Secured with Dry Gauze,Dry Gauze & Roll Gauze,Secured with Tape -Aquacel AG 2x2 1 Pain Scale: 0-10 Numeric Is Patient Pain Free? Yes - Visit Discharge Discharge Condition Stable Ambulatory Status Wheelchair Transportation Private Auto Medication Reconcilliation completed & Yes provided to patient/care provider Clinical Summary of Care Provided Yes Wound debrided: anterior leg at below knee amputation stump site Laterality: Left Wound Grade/Stage: grade 1 Type of Debridement: Excisional debridement Anesthesia Used: 5% Lidocaine Gel Depth: in the subcutaneous layer Percentage of wound debrided: 100 Instrument Used: #15 blade Tissue Removed: fibrous, devitalized subcutaneous, biofilm, slough Severity: Fat Layer Exposed Amount of bleeding with debridement: Mild Bleeding Controlled with: Pressure Patient tolerated procedure well Assessment/Plan Active Problems (Last Updated 06/25/20 @ 14:54 by Estefani Jaramillo) Ulcer of left lower extremity with fat layer exposed (Acute) DM type 1 (diabetes mellitus, type 1) (Chronic) PAD (peripheral artery disease) (Chronic) Assessment: Left below-knee amputation stump site ulcer with fat layer exposed. MRSA cellulitis improving. I do not suspect a deep acute abscess today. Uncontrolled diabetes (A1c 14%). Peripheral vascular disease suspected. Current tobacco use Plan: I reviewed and discussed his case including his medical records at [facility]. His medical records were also requested from his other outside facilities will be reviewed upon receipt. His labs from August 16 were reviewed with white blood cell count of 6.6, ESR 45, C-reactive protein 91, A1c 14%. His culture from demonstrates rare MRSA growth. I recommended an updated x-ray of the left leg and an order was provided. I also recommended noninvasive vascular studies to evaluate for perfusion and potential occlusions. He was advised to continue to change the dressing with silver alginate and to wash this site with antibacterial soap and water or even Dakin solution would be appropriate. He was advised on where to get this medical grade diluted bleach solution. It is okay to apply an Derek wrap for compression and additional compression will be recommended after reviewing his arterial status. It is imperative he stop smoking and get a better handle on his glucose levels to allow any type of healing potential. He also relates frustration with transportation issues and is only able to come in the afternoon. I reassured him that should not be an issue with following up on Thursday afternoons at the wound healing center and we will him navigate the healthcare system. He was advised on local and systemic signs of worsening illness and will monitor this. I also offered to help him with further Charcot work-up and evaluation including potential bracing for his contralateral limb if needed as well during these visits if he is not able to follow-up with his other providers at many locations. I answered all of his questions. He was advised to return the wound healing center in 1 week. Note: [email or web address] speech recognition physician credentialing specialist software was used to create portions of this document. Sound-alike and misspelled words, as well as other physician credentialing specialist errors may be contained in the documentation.
--- NOTE | 2020-08-29 14:13 | ART_ITS ---
Reason For Study: PVD Procedure A bilateral lower extremity continuous wave Doppler with analog waveform analysis,segmental pressures,and ankle brachial indexes without exercise. Left Segmental Pressures Left brachial= 128mmHg. Left thigh = 161mmHg. The left popliteal artery waveforms are triphasic. Right Segmental Pressures Right brachial= 122mmHg. Right posterior tibial artery = 139mmHg. Right dorsalis pedis artery = 115mmHg. Right digit = 100 mmHg. The right dorsalis pedis waveforms are triphasic. The right posterior tibial artery waveforms are triphasic. Indices The right ankle brachial index by the dorsalis pedis is 0.90. The right ankle brachial index by the posterior tibial artery is 1.09. The right digital-brachial index is 0.78. Left thigh-brachial index is 1.26. Interpretation Summary Triphasic Doppler waveforms are noted at ankle level on the right, and at popliteal level on the left. The patient has a left below-knee amputation. Pulse-volume recordings are satisfactory at low- thigh, calf, and ankle level on the right, and at low-thigh level on the left. The resting right ankle-brachial index is normal. The right digital-brachial index is normal. There is no evidence of significant arterial occlusive disease in the right lower extremity, or at thigh level on the left. Ordering Physician: Bindu Childs Referring Physician: Samson Garcia Performed By: Naomi Flores RVT
--- NOTE | 2020-08-29 14:44 | RAD_ITS ---
STUDY: X-RAY - LEFT TIBIA AND FIBULA REASON FOR EXAM: Male, 45 years old. LEFT LEG AMPUTATION. ULCER TECHNIQUE: 2 view(s) of the tibia and fibula were obtained. COMPARISON: None. FINDINGS: The patient is status post below knee amputation. Soft tissue swelling at the level of the stump. RAD/Tibia & Fibula 2 Views IMPRESSION: Status post below-knee amputation with soft tissue swelling. Electronically Signed: Guy Parson MD at 15:05 EST , Service support ,
[2020-08-29 15:08] VITALS: BP 106/69; PULSE 93; RESP 16; TEMP 35.9; BMI 22.6
[2020-08-29 16:19] VITALS: BP 110/70
--- NOTE | 2020-08-29 22:00 | PN.PCM_ITS ---
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 Status: Chronic Code(s): L97.922 - Non-pressure chronic ulcer of unspecified part of left lower leg with fat layer exposed (2) DM type 1 (diabetes mellitus, type 1) Status: Chronic Qualifiers: Diabetes mellitus complication status: without complication Qualified Code(s): E10.9 - Type 1 diabetes mellitus without complications Code(s): E10.9 - Type 1 diabetes mellitus without complications (3) PAD (peripheral artery disease) Status: Ruled-out Code(s): I73.9 - Peripheral vascular disease, unspecified (4) MRSA (methicillin resistant staph aureus) culture positive Status: Resolved Code(s): Z22.322 - Carrier or suspected carrier of Methicillin resistant Staphylococcus aureus (5) Charcot's joint, right ankle and foot Status: Chronic Code(s): M14.671 - Charcot's joint, right ankle and foot Type of Wound Date of Service: 08/29/20 Chief Complaint: left leg ulcer History of Wound: This 45-year-old male with multiple comorbidities including uncontrolled diabetes with an A1c level of 14% complains of a nonhealing left leg ulcer at his previous below-knee amputation stump site. He is calm and pleasant today. He has been changing the dressing with dakin solution as advised. This below-knee amputation of the left lower extremity surgery was initially performed at an outside facility in 2018 and it is noted he had a drainage performed at [facility] in January 2020 with orthopedic surgeon, Dr. Nickerson. He also reports he had a revision performed at [facility] over 1 month ago in which additional bone was resected. At that time he was diagnosed with a MRSA infection and was seen by infectious disease specia list, Dr. Sevilla. He was placed on a 6-week course of IV daptomycin. It is noted recently within the past 1-1/2 weeks he was again admitted at [facility] for diabetic ketoacidosis. His stump site was recultured which ultimately demonstrated rare MRSA growth again. He was seen by infectious disease specialist, Dr. Khoury who recommended a 2-week course of doxycycline. He has completed this course without current redness, pain or odor. He continues to smoke but daily and relates he does not check his glucose levels. He now has a new PCP and will participate in glucose management better now. He also relates he was recently seen by lining setter, Dr. Ferrara who was evaluating him for right Charcot treatment including potential brace at [facility]. He relates this brace was far to heavy and he was not able to properly wear this. He is interested in following up locally for his right lower extremity charcot and asks if an amputation on the right lower extremity is also an option. His main goal is to return to functioning and ambulation. He is in a wheelchair today. He has continued phantom limb type pain to the left lower extremitiy. He obtained his vascular studies and xrays and would like to review the results at this time. Progress of Wound: improving - Physical Exam Vital Signs Temp Pulse Resp BP 96.7 F L 93 16 110/70 08/29/20 15:08 08/29/20 15:08 08/29/20 15:08 08/29/20 16:19 General: Alert, Oriented x3, Cooperative HEENT: Atraumatic Extremities: No cyanosis, Capillary Refill Less than 3 Seconds, Diminished Peripheral Pulses, Edema - Decreased left lower extremity, - - Left below-knee amputation. Right foot remains in shoe and he defers evaluation today; he plans to follow-up at the foot and ankle center. Wheelchair noted Skin: Ulcer/ Wound - Reduced ulcer depth. No periulcer inflammation, erythema, purulence, streaking, eschar, necrosis or deep tissue exposure. No bogginess or fluctuance on palpation Wound Measurements and Assessment WC - Nurse 1 - General Ulcer Measurement Start: 08/22/20 15:27 Freq: Status: Active Protocol: Activity Type Activity Date Activity User E-Sign Co-Sign Detail Recorded Client Recorded Date Recorded By Document 08/29/20 15:08 [facility] [id number] 08/29/20 15:18 [facility] 08/29/20 15:08 Wound Center Nurse 1 [Ulcer Assessment] 1. left BKA -Combined with other wound No -Current Size (cm) - Length 0.4 -Current Size (cm) - Width 4.5 -Current Size (cm) - Depth 0.3 -Total Square Cm 1.80 -Photo Taken No -Epithelialization None Present -Tunneling No -Undermining/Tunneling No -Circular Undermining No -Exudate Amt Small -Exudate Type Serosanguineous -Wound Margin Distinct, Outline Attached -Granulation Amt Medium (34-66%) -Granulation Quality Red -Slough/Fibrin Yes -Necrosis Amt Medium (34-66%) -Necrotic Tissue Type Adherent Slough -Texture (Eliza-wound Skin Appearance) Assessed, Scarring -Moisture (Eliza-wound Skin Appearance Assessed,Dry/ ) Scaly -Color (Eliza-wound Skin Appearance) Assessed -Temperature (Eliza-wound Skin No Abnormality Appearance) (Pt Warm) -Tenderness on Palpation (Eliza-wound No Skin Appearance) -Ulcer Cleansing Rinsed/ Irrigated with Saline -Foul Odor after Cleansing No -Anesthetic Used 4% Lidocaine Solution DESTIN - Nurse 2 - General Ulcer CM Notes Start: 08/22/20 15:27 Freq: Status: Active Protocol: Activity Type Activity Date Activity User E-Sign Co-Sign Detail Recorded Client Recorded Date Recorded By Document 08/29/20 15:55 [email or web address] [id number] 08/29/20 16:05 [email or web address] 08/29/20 15:55 Wound Center Nurse 2 [Procedure/Treatment] -Time 15:56 -Correct Patient Yes -Correct Side, Site, Position Yes -Correct Procedure Yes -Procedure Performed Yes -Type of Procedure Debridement -Clinical Debridement Subcutaneous -Tissue Removed Subcutaneous -Post Debridement (cm) - Length 0.5 -Post Debridement (cm) - Width 4.5 -Post Debridement (cm) - Depth 0.3 -Total Square (Post) (cm) 2.25 -Area of Debridement (cm) - Length 0.5 -Area of Debridement (cm) - Width 4.5 -Total Square (Area) (cm) 2.25 -Tunneling No -Undermining/Tunneling No -Circular Undermining No -Wound/Ulcer Outcome Not Healed -Ulcer Cleansing Rinsed/ Irrigated with Saline -Foul Odor after Cleansing No -Bioengineered Tissue No -Bleeding Controlled with Pressure -Offloading No -Treatment Response Procedure Tolerated Well -Debridement - Subq, 1st 20sq cm Yes [See Physician Procedure note for Specifics] Pain Scale: 0-10 Numeric [Pain] -Is Patient Pain Free? Yes - Nurse 3 - General Ulcer D/C NN Start: 08/22/20 15:27 Freq: Status: Active Protocol: Activity Type Activity Date Activity User E-Sign Co-Sign Detail Recorded Client Recorded Date Recorded By Document 08/29/20 16:19 [id number] 08/29/20 16:21 RB 08/29/20 16:19 Wound Care Nurse 3 [Wound Dressing] 1. left BKA -Other Dressing dakin moistened gauze -Primary Dressing Covered/Secured Dry Gauze,Dry with Gauze & Roll Gauze,Secured with Tape [Compression Applied] Left -Other derek [Post Procedure Tolerated] -Treatment Response Procedure Tolerated Well Vital Signs [Blood Pressure] -Blood Pressure (90/60-120/80) 110/70 -Blood Pressure Mean (mm Hg) 83 -Source Monitor -Position Sitting -Blood Pressure Location Left Arm Teaching: Wound Center [Wound Center Education] (Items with an * have Printed Materials Available- Please identify what is given to patient under the Teaching materials given to patient and caregiver Section. Dressing Your Wound -Person Taught Patient -Teaching Method Discussion, Demonstration -Response to teaching Verbalize understanding WC - Visit Discharge [Visit Discharge Information] -Discharge Condition Stable -Ambulatory Status Wheelchair -Transportation Private Auto -Medication Reconcilliation completed No & provided to patient/care provider -Clinical Summary of Care Provided Yes Musculoskeletal: No Tenderness to Palpation of Joints or Extremities, Muscle Wasting, - - Compartments remain soft to palpate remaining left extremity leg and thigh Neurological: - - Lack of normal epicritic sensation light touch is consistent with neuropathy status Psych/Mental Status: Normal Affect, Appropriate Debridement Note Post-Debridement Measurements/Treatment - Nurse 2 - General Ulcer CM Notes Start: 08/22/20 15:27 Freq: Status: Active Protocol: Activity Type Activity Date Activity User E-Sign Co-Sign Detail Recorded Client Recorded Date Recorded By Document 08/22/20 15:43 [id number] 08/22/20 15:46 Document 08/29/20 15:55 [id number] 08/29/20 16:05 08/22/20 08/29/20 15:43 15:55 Wound Center Nurse 2 1. left BKA -Time 15:44 15:56 -Correct Patient Yes Yes -Correct Side, Site, Position Yes Yes -Correct Procedure Yes Yes -Procedure Performed Yes Yes -Type of Procedure Debridement Debridement -Clinical Debridement Subcutaneous Subcutaneous -Tissue Removed Subcutaneous Subcutaneous -Post Debridement (cm) - Length 0.7 0.5 -Post Debridement (cm) - Width 5 4.5 -Post Debridement (cm) - Depth 0.7 0.3 -Total Square (Post) (cm) 3.5 2.25 -Area of Debridement (cm) - Length 0.7 0.5 -Area of Debridement (cm) - Width 5 4.5 -Total Square (Area) (cm) 3.5 2.25 -Tunneling No No -Undermining/Tunneling No No -Circular Undermining No No -Wound/Ulcer Outcome Not Healed Not Healed -Ulcer Cleansing Rinsed/ Rinsed/ Irrigated with Irrigated with Saline Saline -Foul Odor after Cleansing No No -Bioengineered Tissue No No -Bleeding Controlled with Pressure Pressure -Offloading No No -Treatment Response Procedure Procedure Tolerated Well Tolerated Well -Debridement - Subq, 1st 20sq cm Yes Yes Pain Scale: 0-10 Numeric Is Patient Pain Free? Yes Yes - Nurse 3 - General Ulcer D/C NN Start: 08/22/20 15:27 Freq: Status: Active Protocol: Activity Type Activity Date Activity User E-Sign Co-Sign Detail Recorded Client Recorded Date Recorded By Document 08/22/20 15:48 [id number] 08/22/20 15:48 Document 08/29/20 16:19 RB [id number] 08/29/20 16:21 RB 08/22/20 08/29/20 15:48 16:19 Wound Care Nurse 3 1. left BKA -Ulcer Cleansing Rinsed/ Irrigated with Saline -Foul Odor after Cleansing No -Primary Dressing Applied Aquacel AG 2x2 -Other Dressing dakin moistened gauze -Primary Dressing Covered/Secured with Dry Gauze,Dry Dry Gauze,Dry Gauze & Roll Gauze & Roll Gauze,Secured Gauze,Secured with Tape with Tape -Aquacel AG 2x2 1 Left -Other derek Treatment Response Procedure Tolerated Well Vital Signs Blood Pressure (90/60-120/80) 110/70 Blood Pressure Mean (mm Hg) 83 Source Monitor Position Sitting Blood Pressure Location Left Arm Pain Scale: 0-10 Numeric Is Patient Pain Free? Yes Teaching: Wound Center Dressing Your Wound -Person Taught Patient -Teaching Method Discussion, Demonstration -Response to teaching Verbalize understanding WC - Visit Discharge Discharge Condition Stable Stable Ambulatory Status Wheelchair Wheelchair Transportation Private Auto Private Auto Medication Reconcilliation completed & Yes No provided to patient/care provider Clinical Summary of Care Provided Yes Yes Wound debrided: leg Laterality: Left Wound Grade/Stage: grade 1 Type of Debridement: Excisional debridement Anesthesia Used: 5% Lidocaine Gel Depth: in the subcutaneous layer Percentage of wound debrided: 100 Instrument Used: #15 blade Tissue Removed: fibrous, devitalized subcutaneous, biofilm, slough Severity: Fat Layer Exposed Amount of bleeding with debridement: Mild Bleeding Controlled with: Pressure Patient tolerated procedure well Assessment/Plan Clinical Impression(s) from Imaging Studies Tibia/Fibula X-Ray 08/29/20 14:44 IMPRESSION: Status post below-knee amputation with soft tissue swelling. Electronically Signed: Guy Parson MD at 15:05 EST , Service support , Active Problems (Last Updated 06/25/20 @ 14:54 by Estefani Jaramillo) Ulcer of left lower extremity with fat layer exposed (Chronic) Charcot's joint, right ankle and foot (Chronic) DM type 1 (diabetes mellitus, type 1) (Chronic) Assessment: Left below-knee amputation stump site ulcer with fat layer exposed. MRSA cellulitis clinically resolved today. I do not suspect a deep acute abscess today. Uncontrolled diabetes (A1c 14%). Peripheral vascular disease ruled out. Current tobacco use Plan: I reviewed and discussed his case including his medical records at [facility]. His labs from August 16 were reviewed with white blood cell count of 6.6, ESR 45, C-reactive protein 91, A1c 14%. Updated labs were ordered and these results are still pending. I will check for results later this week. His culture from demonstrates rare MRSA growth. I recommended an updated x-ray of the left leg and this was completed. Status post left below-knee amputation without stump osseous proliferation, soft tissue emphysema, foreign body, or osseous destruction seen. There is no gross edema at the stump site either. I also recommended noninvasive vascular studies to evaluate for perfusion and potential occlusions. This was reviewed and he has good waveforms at the left popliteal level, no evidence of arterial calcification. Therefore, peripheral vascular disease is not suspected and I suspect his pain is more related to neuropathic phantom limb pain and this is exacerbated by his poor glycemic control (A1c is 14%). He was advised to continue to change the dressing with Dakin moistened solution with gauze to address any continued bioburden due to his recent treated MRSA infection. He was advised to apply an Derek wrap for compression and additional compression will be recommended after reviewing his arterial status. It is imperative he stop smoking and get a better handle on his glucose levels to allow any type of healing potential. He will follow-up for contralateral right lower extremity Charcot evaluation and treatment at the foot and ankle center. His records will be requested from the antibiotic. We briefly discussed bracing options. He asks if an amputation may be the best way to get him back to higher function. I do not advise any surgery or curative versus elective amputation at this time due to his elevated A1c levels. I would like to see him find a viable bracing option. He was advised on local and systemic signs of worsening illness and will monitor this. I answered all of his questions. He was advised to return the wound healing center in 1 week. Note: [employer] speech recognition poker machine attendant software was used to create portions of this document. Sound-alike and misspelled words, as well as other poker machine attendant errors may be contained in the documentation. The medical decision making level is moderate based on data including at least three of the following: review of prior external notes, review of a test, ordering a test, assessment requiring an independent historian. The problems addressed require a moderate decision making level which includes one or more chronic illnesses (w/ exacerbation, progression, or side effects), two or more stable chronic illnesses, one undiagnosed new problem w/ uncertain prognosis, one acute illness with systemic symptoms, or one acute complicated injury.
[2020-09-05 14:42] VITALS: BP 143/90; PULSE 99; RESP 16; TEMP 36.1; BMI 22.6
[2020-09-05 15:10] VITALS: BP 143/88
--- NOTE | 2020-09-05 15:23 | PN.PCM_ITS ---
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 Status: Chronic Code(s): L97.922 - Non-pressure chronic ulcer of unspecified part of left lower leg with fat layer exposed (2) DM type 1 (diabetes mellitus, type 1) Status: Chronic Qualifiers: Diabetes mellitus complication status: without complication Qualified Code(s): E10.9 - Type 1 diabetes mellitus without complications Code(s): E10.9 - Type 1 diabetes mellitus without complications (3) MRSA (methicillin resistant staph aureus) culture positive Status: Resolved Code(s): Z22.322 - Carrier or suspected carrier of Methicillin resistant Staphylococcus aureus (4) Difficulty walking Status: Chronic Code(s): R26.2 - Difficulty in walking, not elsewhere classified (5) Malnutrition Status: Chronic Code(s): E46 - Unspecified protein-calorie malnutrition Type of Wound Date of Service: 09/05/20 Chief Complaint: left leg ulcer History of Wound: This 45-year-old male with multiple comorbidities including uncontrolled diabetes complains of a nonhealing left leg ulcer at his previous below-knee amputation stump site. He relates he is now able to monitor his glucose levels many times throughout the days and his sugars have been running between 250 and 300 mg/dL in which he was previously routinely in the 500s. He has been changing the dressing with dakin solution as advised. This below-knee amputation of the left lower extremity surgery was initially performed at an outside facility in 2018 and it is noted he had a drainage performed at [facility] in January 2020 with orthopedic surgeon, Dr. Nickerson. He also reports he had a revision performed at [facility] over 1 month ago in which additional bone was resected. At that time he was diagnosed with a MRSA infection and was seen by infectious disease specialist, Dr. Sevilla. He was placed on a 6-week course of IV daptomycin. He was then treated at [facility] for diabetic ketoacidosis. His stump site was recultured which ultimately demonstrated rare MRSA growth again. He was seen by infectious disease specialist, Dr. Khoury who recommended a 2-week course of doxycycline. He has completed this course without current redness, pain or odor. Today he denies fever, chill, nausea, vomiting. He has continued minimal jada inage. He is in need of dentures and is unable to eat. He said he is like a bird and picks at small amounts of food periodically throughout the day. His aide helps him prepare 1 meal a week and he also has a meal delivery system that delivers food once a week. He has lost over 25 pounds within the past couple of months. Progress of Wound: improving - Physical Exam Vital Signs Temp Pulse Resp BP 97 F L 99 16 143/88 H 09/05/20 14:42 09/05/20 14:42 09/05/20 14:42 09/05/20 15:10 General: Alert, Oriented x3, Cooperative, No apparent distress HEENT: Atraumatic Extremities: No cyanosis, Capillary Refill Less than 3 Seconds, Edema - Decr eased left below-knee amputation stump site, - - Compartments of left limb remain soft to palpate Skin: Ulcer/ Wound - No purulence, erythema, streaking, odor, infection. The ulcer size has significantly reduced. There is still localized serosanguineous drainage to the central and central lateral aspect of the left below-knee amputation stump site. There is no bogginess or fluctuance on palpation. Wound Measurements and Assessment WC - Nurse 1 - General Ulcer Measurement Start: 08/22/20 15:27 Freq: Status: Active Protocol: Activity Type Activity Date Activity User E-Sign Co-Sign Detail Recorded Client Recorded Date Recorded By Document 09/05/20 14:42 [facility] [id number] 09/05/20 14:46 [facility] 09/05/20 14:42 Wound Center Nurse 1 [Ulcer Assessment] 1. left BKA -Combined with other wound No -Current Size (cm) - Length 0.1 -Current Size (cm) - Width 0.1 -Current Size (cm) - Depth 0.1 -Total Square Cm 0.01 -Photo Taken No -Epithelialization Large 67-100% -Tunneling No -Undermining/Tunneling No -Circular Undermining No -Exudate Amt None Present -Granulation Amt None Present (0 %) -Slough/Fibrin Yes -Necrosis Amt Small (1-33%) -Necrotic Tissue Type Adherent Slough -Texture (Eliza-wound Skin Appearance) Assessed, Scarring -Moisture (Eliza-wound Skin Appearance Assessed ) -Color (Eliza-wound Skin Appearance) Assessed -Temperature (Eliza-wound Skin No Abnormality Appearance) (Pt Warm) -Tenderness on Palpation (Eliza-wound No Skin Appearance) -Ulcer Cleansing Rinsed/ Irrigated with Saline -Foul Odor after Cleansing No -Anesthetic Used 5% Lidocaine Gel - Nurse 3 - General Ulcer D/C NN Start: 08/22/20 15:27 Freq: Status: Active Protocol: Activity Type Activity Date Activity User E-Sign Co-Sign Detail Recorded Client Recorded Date Recorded By Document 09/05/20 15:10 RB [id number] 09/05/20 15:12 RB 09/05/20 15:10 Wound Care Nurse 3 [Wound Dressing] -Ulcer Cleansing Rinsed/ Irrigated with Saline -Other Dressing .25% DAKINS SOLUTION MOISTENED GAUZE -Primary Dressing Covered/Secured Dry Gauze,Dry with Gauze & Roll Gauze,Secured with Tape [Compression Applied] Left -Other DEREK [Post Procedure Tolerated] -Treatment Response Procedure Tolerated Well Vital Signs [Blood Pressure] -Blood Pressure (90/60-120/80) 143/88 H -Blood Pressure Mean (mm Hg) 106 -Source Monitor -Position Semi-Fowlers -Blood Pressure Location Left Arm Pain Scale: 0-10 Numeric [Pain] -Is Patient Pain Free? Yes WC - Visit Discharge [Visit Discharge Information] -Discharge Condition Stable -Ambulatory Status Ambulatory -Transportation Private Auto -Medication Reconcilliation completed No & provided to patient/care provider -Clinical Summary of Care Provided Yes Musculoskeletal: No Tenderness to Palpation of Joints or Extremities, Muscle Wasting Neurological: - - Lack of normal epicritic sensation is consistent with neuropathy status. Psych/Mental Status: Normal Affect, Appropriate Debridement Note Post-Debridement Measurements/Treatment - Nurse 2 - General Ulcer CM Notes Start: 08/22/20 15:27 Freq: Status: Active Protocol: Activity Type Activity Date Activity User E-Sign Co-Sign Detail Recorded Client Recorded Date Recorded By Document 08/22/20 15:43 [id number] 08/22/20 15:46 Document 08/29/20 15:55 [id number] 08/29/20 16:05 08/22/20 08/29/20 15:43 15:55 Wound Center Nurse 2 1. left BKA -Time 15:44 15:56 -Correct Patient Yes Yes -Correct Side, Site, Position Yes Yes -Correct Procedure Yes Yes -Procedure Performed Yes Yes -Type of Procedure Debridement Debridement -Clinical Debridement Subcutaneous Subcutaneous -Tissue Removed Subcutaneous Subcutaneous -Post Debridement (cm) - Length 0.7 0.5 -Post Debridement (cm) - Width 5 4.5 -Post Debridement (cm) - Depth 0.7 0.3 -Total Square (Post) (cm) 3.5 2.25 -Area of Debridement (cm) - Length 0.7 0.5 -Area of Debridement (cm) - Width 5 4.5 -Total Square (Area) (cm) 3.5 2.25 -Tunneling No No -Undermining/Tunneling No No -Circular Undermining No No -Wound/Ulcer Outcome Not Healed Not Healed -Ulcer Cleansing Rinsed/ Rinsed/ Irrigated with Irrigated with Saline Saline -Foul Odor after Cleansing No No -Bioengineered Tissue No No -Bleeding Controlled with Pressure Pressure -Offloading No No -Treatment Response Procedure Procedure Tolerated Well Tolerated Well -Debridement - Subq, 1st 20sq cm Yes Yes Pain Scale: 0-10 Numeric Is Patient Pain Free? Yes Yes WC - Nurse 3 - General Ulcer D/C NN Start: 08/22/20 15:27 Freq: Status: Active Protocol: Activity Type Activity Date Activity User E-Sign Co-Sign Detail Recorded Client Recorded Date Recorded By Document 08/22/20 15:48 [id number] 08/22/20 15:48 Document 08/29/20 16:19 RB [id number] 08/29/20 16:21 RB Document 09/05/20 15:10 RB [id number] 09/05/20 15:12 RB 08/22/20 08/29/20 09/05/20 15:48 16:19 15:10 Wound Care Nurse 3 1. left BKA -Ulcer Cleansing Rinsed/ Rinsed/ Irrigated with Irrigated with Saline Saline -Foul Odor after Cleansing No -Primary Dressing Applied Aquacel AG 2x2 -Other Dressing dakin moistened .25% DAKINS gauze SOLUTION MOISTENED GAUZE -Primary Dressing Covered/Secured with Dry Gauze,Dry Dry Gauze,Dry Dry Gauze,Dry Gauze & Roll Gauze & Roll Gauze & Roll Gauze,Secured Gauze,Secured Gauze,Secured with Tape with Tape with Tape -Aquacel AG 2x2 1 Left -Other derek DEREK Treatment Response Procedure Procedure Tolerated Well Tolerated Well Vital Signs Blood Pressure (90/60-120/80) 110/70 143/88 H Blood Pressure Mean (mm Hg) 83 106 Source Monitor Monitor Position Sitting Semi-Fowlers Blood Pressure Location Left Arm Left Arm Pain Scale: 0-10 Numeric Is Patient Pain Free? Yes Yes Teaching: Wound Center Dressing Your Wound -Person Taught Patient -Teaching Method Discussion, Demonstration -Response to teaching Verbalize understanding WC - Visit Discharge Discharge Condition Stable Stable Stable Ambulatory Status Wheelchair Wheelchair Ambulatory Transportation Private Auto Private Auto Private Auto Medication Reconcilliation completed & Yes No No provided to patient/care provider Clinical Summary of Care Provided Yes Yes Yes Wound debrided: stump site (central and central lateral) Laterality: Left Wound Grade/Stage: grade 1 Type of Debridement: Excisional debridement Anesthesia Used: 5% Lidocaine Gel Depth: in the subcutaneous layer Percentage of wound debrided: 100 Instrument Used: #15 blade Tissue Removed: fibrous, devitalized subcutaneous, biofilm, slough Severity: Fat Layer Exposed Amount of bleeding with debridement: Mild Bleeding Controlled with: Pressure Patient tolerated procedure well Assessment/Plan Clinical Impression(s) from Imaging Studies Tibia/Fibula X-Ray 08/29/20 14:44 IMPRESSION: Status post below-knee amputation with soft tissue swelling. Electronically Signed: Guy Parson MD at 15:05 EST , Service support , Active Problems (Last Updated 06/25/20 @ 14:54 by Estefani Jaramillo) Ulcer of left lower extremity with fat layer exposed (Chronic) Charcot's joint, right ankle and foot (Chronic) Difficulty walking (Chronic) Malnutrition (Chronic) DM type 1 (diabetes mellitus, type 1) (Chronic) Assessment: Left below-knee amputation stump site ulcer with fat layer exposed. MRSA cellulitis clinically resolved today. Hepatitis. I do not suspect a deep acute abscess today. Uncontrolled diabetes (A1c 13.6 %). Peripheral vascular disease ruled out. Current tobacco use. Malnutrition Plan: I reviewed and discussed his case including his medical records at [facility]. His labs from August 16 were reviewed with white blood cell count of 6.6, ESR 45, C-reactive protein 91. He had labs repeated last week and his white blood cell count was 8.7, ESR reduced to 23 and C-reactive protein reduced to less than 2.9. His updated A1c was 13.6%. His culture from demonstrates rare MRSA growth. I recommended an updated x-ray of the left leg and this was completed. Status post left below-knee amputation without stump osseous proliferation, soft tissue emphysema, foreign body, or osseous destruction seen. There is no gross edema at the stump site either. I also recommended noninvasive vascular studies to evaluate for perfusion and potential occlusions. This was reviewed and he has good waveforms at the left popliteal level, no evidence of arterial calcification. Therefore, peripheral vascular disease is not suspected and I suspect his pain is more related to neuropathic phantom limb pain and this is exacerbated by his poor glycemic control. He was advised to continue to change the dressing with Dakin moistened solution with gauze to address any continued bioburden due to his recent treated MRSA infection. He was advised to apply an Derek wrap for compression and additional compression will be recommended after reviewing his arterial status. It is imperative he stop smoking and get a better handle on his glucose levels to allow any type of healing potential. He will follow-up for contralateral right lower extremity Charcot evaluation and [facility]. His records will be requested from the antibiotic. We briefly discussed bracing options. He asks if an amputation may be the best way to get him back to higher function. I do not advise any surgery or curative versus elective amputation at this time due to his elevated A1c levels. I would like to see him find a viable bracing option. He was advised on local and systemic signs of worsening illness and will monitor this. I am also concerned of his malnutrition status and his recent weight loss. Is very hard for him to eat and chew food. I recommended a outbound sales specialist referral who can help guide him on nutritional education and ways to work around some of his other disabilities including difficulty with due to neuropathy, inability to drive, and inability to chew. He refuses. I also advised him to talk to his counter caser and care source to see what his options are for obtaining dentures. I answered all of his questions. He was advised to return the wound healing center in 1 week. 21 minutes was spent on this encounter. This included face to face and non face to face care including preparing for the visit, reviewing the history, performing the exam, counseling and providing education to the patient, family, or caregiver, ordering medications/test/ procedures if indicated as documented, communicating with other healthcare providers, documenting information in the medical record, interpreting / sharing this information when indicated as documented, and care coordination.
[2020-09-12 14:48] VITALS: BP 139/91; PULSE 93; RESP 18; TEMP 36.3; BMI 22.6
[2020-09-12 15:49] VITALS: BP 138/81
--- NOTE | 2020-09-12 21:13 | PCM.WC.PN ---
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 Status: Chronic Code(s): L97.922 - Non-pressure chronic ulcer of unspecified part of left lower leg with fat layer exposed (2) DM type 1 (diabetes mellitus, type 1) Status: Chronic Qualifiers: Diabetes mellitus complication status: with other specified complication Qualified Code(s): E10.69 - Type 1 diabetes mellitus with other specified complication Code(s): E10.9 - Type 1 diabetes mellitus without complications (3) MRSA (methicillin resistant staph aureus) culture positive Status: Resolved Code(s): Z22.322 - Carrier or suspected carrier of Methicillin resistant Staphylococcus aureus (4) Difficulty walking Status: Chronic Code(s): R26.2 - Difficulty in walking, not elsewhere classified (5) Malnutrition Status: Chronic Code(s): E46 - Unspecified protein-calorie malnutrition (6) Left knee pain Status: Acute Qualifiers: Chronicity: chronic Qualified Code(s): M25.562 - Pain in left knee; G89.29 - Other chronic pain Code(s): M25.562 - Pain in left knee Type of Wound Date of Service: 09/12/20 Chief Complaint: left leg ulcer History of Wound: This 45-year-old male with multiple comorbidities including uncontrolled diabetes complains of a nonhealing left leg ulcer at his previous below-knee amputation stump site. He relates he is now able to monitor his glucose levels many times throughout the day and his glucose levels are no longer routinely running in the 400 - 500 range. He has been changing the dressing with dakin solution as advised. This below-knee amputation of the left lower extremity surgery was initially performed at an outside facility in 2018 and it is noted he had a drainage performed at [facility] in January 2020 with orthopedic surgeon, Dr. Nickerson. He also reports he had a revision performed at [facility] over 1 month ago in which additional bone was resected. At that time he was diagnosed with a MRSA infection and was seen by infectious disease specialist, Dr. Sevilla. He was placed on a 6-week course of IV daptomycin. He was then treated at [facility] for diabetic ketoacidosis. His stump site was recultured which ultimately demonstrated rare MRSA growth again. He was seen by infectious disease specialist, Dr. Khoury who recommended a 2-week course of doxycycline. He has completed this course without current redness, pain or odor. Today he denies fever, chill, nausea, vomiting. He is very concerned today that there is a deep abscess and he will keep getting limb threatening infections even though his wound is making good progress. He relates his nurse wants to know if an MRI is necessary again to make sure there is not a continued deep space infection. He is very upset about this today and is aggressive. He continues to have weight loss and is trying to better control his glucose. He is also upset we had a discussion last week about nutrition and glucose management. This patient is also upset because he has knee joint pain. He is concerned this is part of his infection progresses. He denies injuries or redness. He relates he will not go to pain management clinic because he continues to use marajuana at home for pain management and will not be permitted to attend. He refuses orthopedic or infectious disease follow-up visits. He already had vascular studies completed which suggested adequate perfusion to his limb.He had prior phantom limb pain and reports this is different. Progress of Wound: improving - Physical Exam Vital Signs Temp Pulse Resp BP 97.3 F L 93 18 138/81 H 09/12/20 14:48 09/12/20 14:48 09/12/20 14:48 09/12/20 15:49 General: Alert, Oriented x3, Cooperative, No apparent distress HEENT: Atraumatic Extremities: No cyanosis, Capillary Refill Less than 3 Seconds - Stump site left, Diminished Peripheral Pulses, Edema - Decreased left below-knee amputation stump site, - - Compartments remain soft to palpate left leg and thigh Skin: Ulcer/ Wound - There is reduction in ulcer size and this limb ulcer is superficial with granular base. There is only serosanguineous mild amounts of drainage on his dressing. There is no purulence on expression, no erythema, no streaking, no odor, no necrosis, no deep tissue exposure probing., - - There is no bogginess or fluctuance on palpation. Compartments remain soft to palpate. Wound Measurements and Assessment WC - Nurse 1 - General Ulcer Measurement Start: 08/22/20 15:27 Freq: Status: Active Protocol: Activity Type Activity Date Activity User E-Sign Co-Sign Detail Recorded Client Recorded Date Recorded By Document 09/12/20 14:48 RB [id number] 09/12/20 14:53 RB 09/12/20 14:48 Wound Center Nurse 1 [Ulcer Assessment] 1. left BKA -Combined with other wound No -Current Size (cm) - Length 0.4 -Current Size (cm) - Width 2.2 -Current Size (cm) - Depth 0.1 -Total Square Cm 0.88 -Tunneling No -Undermining/Tunneling No -Circular Undermining No -Exudate Amt Small -Exudate Type Serosanguineous -Wound Margin Flat & Intact -Granulation Amt Medium (34-66%) -Granulation Quality [place] -Slough/Fibrin Yes -Necrosis Amt Small (1-33%) -Necrotic Tissue Type Adherent Slough -Structure Exposed N/A -Texture (Eliza-wound Skin Appearance) Assessed, Scarring -Moisture (Eliza-wound Skin Appearance Assessed ) -Color (Eliza-wound Skin Appearance) Assessed -Temperature (Eliza-wound Skin No Abnormality Appearance) (Pt Warm) -Tenderness on Palpation (Eliza-wound No Skin Appearance) -Ulcer Cleansing Wound Cleanser -Foul Odor after Cleansing No -Anesthetic Used 4% Lidocaine Solution WC - Nurse 2 - General Ulcer CM Notes Start: 08/22/20 15:27 Freq: Status: Active Protocol: Activity Type Activity Date Activity User E-Sign Co-Sign Detail Recorded Client Recorded Date Recorded By Document 09/12/20 15:25 [email or web address] [id number] 09/12/20 15:35 [id number] 09/12/20 15:25 Wound Center Nurse 2 [Procedure/Treatment] -Time 15:25 -Correct Patient Yes -Correct Side, Site, Position Yes -Correct Procedure Yes -Procedure Performed Yes -Type of Procedure Debridement -Clinical Debridement Subcutaneous -Tissue Removed Subcutaneous -Post Debridement (cm) - Length 0.5 -Post Debridement (cm) - Width 2.2 -Post Debridement (cm) - Depth 0.2 -Total Square (Post) (cm) 1.10 -Area of Debridement (cm) - Length 0.5 -Area of Debridement (cm) - Width 2.2 -Total Square (Area) (cm) 1.10 -Tunneling No -Undermining/Tunneling No -Circular Undermining No -Wound/Ulcer Outcome Not Healed -Ulcer Cleansing Rinsed/ Irrigated with Saline -Foul Odor after Cleansing No -Bioengineered Tissue No -Bleeding Controlled with Pressure -Offloading No -Treatment Response Procedure Tolerated Well -Debridement - Subq, 1st 20sq cm Yes [See Physician Procedure note for Specifics] Pain Scale: 0-10 Numeric [Pain] -Is Patient Pain Free? Yes - Nurse 3 - General Ulcer D/C NN Start: 08/22/20 15:27 Freq: Status: Active Protocol: Activity Type Activity Date Activity User E-Sign Co-Sign Detail Recorded Client Recorded Date Recorded By Document 09/12/20 15:49 RB [id number] 09/12/20 15:50 RB 09/12/20 15:49 Wound Care Nurse 3 [Wound Dressing] 1. left BKA -Other Dressing dakins moistened gauze -Primary Dressing Covered/Secured Dry Gauze, with Secured with Tape Vital Signs [Blood Pressure] -Blood Pressure (90/60-120/80) 138/81 H -Blood Pressure Mean (mm Hg) 100 -Source Monitor -Position Sitting -Blood Pressure Location Left Arm Pain Scale: 0-10 Numeric [Pain] -Is Patient Pain Free? Yes - Visit Discharge [Visit Discharge Information] -Discharge Condition Stable -Ambulatory Status Wheelchair -Transportation Private Auto -Medication Reconcilliation completed No & provided to patient/care provider -Clinical Summary of Care Provided Yes Musculoskeletal: No Tenderness to Palpation of Joints or Extremities, Muscle Wasting, - - Left below-knee amputation Neurological: - - Lack of normal epicritic sensation light touch is consistent with neuropathy status. Psych/Mental Status: Normal Affect, Appropriate Debridement Note Post-Debridement Measurements/Treatment WC - Nurse 2 - General Ulcer CM Notes Start: 08/22/20 15:27 Freq: Status: Active Protocol: Activity Type Activity Date Activity User E-Sign Co-Sign Detail Recorded Client Recorded Date Recorded By Document 08/22/20 15:43 JF [id number] 08/22/20 15:46 JF Document 08/29/20 15:55 JF [id number] 08/29/20 16:05 JF Document 09/05/20 17:05 PL [id number] 09/05/20 17:07 PL Document 09/12/20 15:25 JF [id number] 09/12/20 15:35 JF 08/22/20 08/29/20 09/05/20 15:43 15:55 17:05 Wound Center Nurse 2 1. left BKA -Time 15:44 15:56 14:52 -Correct Patient Yes Yes Yes -Correct Side, Site, Position Yes Yes Yes -Correct Procedure Yes Yes Yes -Procedure Performed Yes Yes Yes -Type of Procedure Debridement Debridement Debridement -Clinical Debridement Subcutaneous Subcutaneous Subcutaneous -Tissue Removed Subcutaneous Subcutaneous Subcutaneous -Post Debridement (cm) - Length 0.7 0.5 0.2 -Post Debridement (cm) - Width 5 4.5 0.2 -Post Debridement (cm) - Depth 0.7 0.3 0.1 -Total Square (Post) (cm) 3.5 2.25 0.04 -Area of Debridement (cm) - Length 0.7 0.5 0.2 -Area of Debridement (cm) - Width 5 4.5 0.2 -Total Square (Area) (cm) 3.5 2.25 0.04 -Tunneling No No No -Undermining/Tunneling No No No -Circular Undermining No No No -Wound/Ulcer Outcome Not Healed Not Healed Not Healed -Ulcer Cleansing Rinsed/ Rinsed/ Rinsed/ Irrigated with Irrigated with Irrigated with Saline Saline Saline -Foul Odor after Cleansing No No No -Bioengineered Tissue No No No -Bleeding Controlled with Pressure Pressure Pressure -Offloading No No -Treatment Response Procedure Procedure Procedure Tolerated Well Tolerated Well Tolerated Well -Debridement - Subq, 1st 20sq cm Yes Yes Yes Pain Scale: 0-10 Numeric Is Patient Pain Free? Yes Yes Yes 09/12/20 15:25 Wound Center Nurse 2 1. left BKA -Time 15:25 -Correct Patient Yes -Correct Side, Site, Position Yes -Correct Procedure Yes -Procedure Performed Yes -Type of Procedure Debridement -Clinical Debridement Subcutaneous -Tissue Removed Subcutaneous -Post Debridement (cm) - Length 0.5 -Post Debridement (cm) - Width 2.2 -Post Debridement (cm) - Depth 0.2 -Total Square (Post) (cm) 1.10 -Area of Debridement (cm) - Length 0.5 -Area of Debridement (cm) - Width 2.2 -Total Square (Area) (cm) 1.10 -Tunneling No -Undermining/Tunneling No -Circular Undermining No -Wound/Ulcer Outcome Not Healed -Ulcer Cleansing Rinsed/ Irrigated with Saline -Foul Odor after Cleansing No -Bioengineered Tissue No -Bleeding Controlled with Pressure -Offloading No -Treatment Response Procedure Tolerated Well -Debridement - Subq, 1st 20sq cm Yes Pain Scale: 0-10 Numeric Is Patient Pain Free? Yes WC - Nurse 3 - General Ulcer D/C NN Start: 08/22/20 15:27 Freq: Status: Active Protocol: Activity Type Activity Date Activity User E-Sign Co-Sign Detail Recorded Client Recorded Date Recorded By Document 08/22/20 15:48 JF [id number] 08/22/20 15:48 JF Document 08/29/20 16:19 RB [id number] 08/29/20 16:21 RB Document 09/05/20 15:10 RB [id number] 09/05/20 15:12 RB Document 09/12/20 15:49 RB [id number] 09/12/20 15:50 RB 08/22/20 08/29/20 09/05/20 15:48 16:19 15:10 Wound Care Nurse 3 1. left BKA -Ulcer Cleansing Rinsed/ Rinsed/ Irrigated with Irrigated with Saline Saline -Foul Odor after Cleansing No -Primary Dressing Applied Aquacel AG 2x2 -Other Dressing dakin moistened .25% DAKINS gauze SOLUTION MOISTENED GAUZE -Primary Dressing Covered/Secured with Dry Gauze,Dry Dry Gauze,Dry Dry Gauze,Dry Gauze & Roll Gauze & Roll Gauze & Roll Gauze,Secured Gauze,Secured Gauze,Secured with Tape with Tape with Tape -Aquacel AG 2x2 1 Left -Other derek DEREK Treatment Response Procedure Procedure Tolerated Well Tolerated Well Vital Signs Blood Pressure (90/60-120/80) 110/70 143/88 H Blood Pressure Mean (mm Hg) 83 106 Source Monitor Monitor Position Sitting Semi-Fowlers Blood Pressure Location Left Arm Left Arm Pain Scale: 0-10 Numeric Is Patient Pain Free? Yes Yes Teaching: Wound Center Dressing Your Wound -Person Taught Patient -Teaching Method Discussion, Demonstration -Response to teaching Verbalize understanding WC - Visit Discharge Discharge Condition Stable Stable Stable Ambulatory Status Wheelchair Wheelchair Ambulatory Transportation Private Auto Private Auto Private Auto Medication Reconcilliation completed & Yes No No provided to patient/care provider Clinical Summary of Care Provided Yes Yes Yes 09/12/20 15:49 Wound Care Nurse 3 1. left BKA -Ulcer Cleansing -Foul Odor after Cleansing -Primary Dressing Applied -Other Dressing dakins moistened gauze -Primary Dressing Covered/Secured with Dry Gauze, Secured with Tape -Aquacel AG 2x2 Left -Other Treatment Response Vital Signs Blood Pressure (90/60-120/80) 138/81 H Blood Pressure Mean (mm Hg) 100 Source Monitor Position Sitting Blood Pressure Location Left Arm Pain Scale: 0-10 Numeric Is Patient Pain Free? Yes Teaching: Wound Center Dressing Your Wound -Person Taught -Teaching Method -Response to teaching WC - Visit Discharge Discharge Condition Stable Ambulatory Status Wheelchair Transportation Private Auto Medication Reconcilliation completed & No provided to patient/care provider Clinical Summary of Care Provided Yes Wound debrided: leg at BKA stump site Laterality: Left Wound Grade/Stage: grade 1 Type of Debridement: Excisional debridement Anesthesia Used: 5% Lidocaine Gel Depth: in the subcutaneous layer Percentage of wound debrided: 100 Instrument Used: #15 blade Tissue Removed: fibrous, devitalized subcutaneous, biofilm, slough Severity: Fat Layer Exposed Amount of bleeding with debridement: Mild Bleeding Controlled with: Pressure Patient tolerated procedure well Assessment/Plan Clinical Impression(s) from Imaging Studies Tibia/Fibula X-Ray 08/29/20 14:44 IMPRESSION: Status post below-knee amputation with soft tissue swelling. Electronically Signed: Guy Parson MD at 15:05 EST , Service support , Active Problems (Last Updated 06/25/20 @ 14:54 by Estefani Jaramillo) Ulcer of left lower extremity with fat layer exposed (Chronic) Charcot's joint, right ankle and foot (Chronic) Difficulty walking (Chronic) Malnutrition (Chronic) DM type 1 (diabetes mellitus, type 1) (Chronic) Assessment: Left below-knee amputation stump site ulcer with fat layer exposed. MRSA cellulitis clinically resolved. Hepatitis. I do not suspect a deep acute abscess today. Uncontrolled diabetes (A1c 13.6 %). Peripheral vascular disease ruled out. Current tobacco use. Malnutrition. left knee pain. phantom limb pain/ neuropathy Plan: I reviewed and discussed his case including his medical records at [facility]. His labs from August 16 were reviewed with white blood cell count of 6.6, ESR 45, C-reactive protein 91. He had labs repeated and his white blood cell count was 8.7, ESR reduced to 23 and C-reactive protein reduced to less than 2.9. His culture from ? demonstrates rare MRSA growth. I recommended an updated x-ray of the left leg and this was completed. Status post left below-knee amputation without stump osseous proliferation, soft tissue emphysema, foreign body, or osseous destruction seen. There is no gross edema at the stump site either. He was reassured there are no local or systemic signs of infection today and I do not recommend an MRI at this time. If signs of any infection develop I would recommend repeating his infection work-up. He was also reassured that he completed his prior antibiotic and infection management with Dr. Khoury. If he would like additional reassurance on this topic I also recommended follow-up with him in the outpatient setting but he refuses at this time. He was also reassured that continued wound drainage is normal and that his drainage on his dressing today did not look infectious in nature. We reviewed what local signs of infection include he can monitor this at home. I also recommended noninvasive vascular studies to evaluate for perfusion and potential occlusions. This was reviewed and he has good waveforms at the left popliteal level, no evidence of arterial calcification. Therefore, peripheral vascular disease is not suspected and I suspect his pain is more related to neuropathic phantom limb pain and this is exacerbated by his poor glycemic control. His updated A1c was 13.6%. For other knee pain work-up I offered him an orthopedic referral or a referral back to pain management. He refuses today. He understands formal knee evaluation is not in my current scope of practice and this will not be addressed while he is at wound center visits. He was advised to continue to change the dressing with Dakin moistened solution with gauze to address any continued bioburden due to his recent treated MRSA infection. He was advised to apply an Derek wrap for compression and additional compression will be recommended after reviewing his arterial status. It is imperative he stop smoking and get a better handle on his glucose levels to allow any type of healing potential. He will follow-up for contralateral right lower extremity Charcot evaluation and treatment at the foot and ankle center. His records will be requested from the antibiotic. We briefly discussed bracing options. He asks if an amputation may be the best way to get him back to higher function. I do not advise any surgery or curative versus elective amputation at this time due to his elevated A1c levels. I would like to see him find a viable bracing option. He was advised on local and systemic signs of worsening illness and will monitor this. I am also concerned of his malnutrition status, recent weight loss, and poor diabetes management. He was educated that this was the purpose of reviewing this topic last week because it is important for wound healing and to prevent future ulcer formation and further limb loss. He refuses nutrionist referral. I answered all of his questions. He was advised to return the wound healing center in 1 week. 22 minutes was spent on this encounter. This included face to face and non face to face care including preparing for the visit, reviewing the history, performing the exam, counseling and providing education to the patient, family, or caregiver, ordering medications/test/ procedures if indicated as documented, communicating with other healthcare providers, documenting information in the medical record, interpreting / sharing this information when indicated as documented, and care coordination.
== END 2020-09-16 23:59 ==
LOC: WC 14:45
PROVIDERS: PCP Internal Medicine; Referring Provider Podiatrist; Visit Provider Podiatrist
DX: T87.89 Other complications of amputation stump (principal); L97.822 Non-pressure chronic ulcer of other part of left lower leg with fat layer exposed; G54.6 Phantom limb syndrome with pain; Y83.5 Amputation of limb(s) as the cause of abnormal reaction of the patient, or of later complication, without mention of misadventure at the time of the procedure; Y92.9 Unspecified place or not applicable; E10.51 Type 1 diabetes mellitus with diabetic peripheral angiopathy without gangrene; E10.610 Type 1 diabetes mellitus with diabetic neuropathic arthropathy; E10.65 Type 1 diabetes mellitus with hyperglycemia; R26.2 Difficulty in walking, not elsewhere classified; I10 Essential (primary) hypertension; Z79.4 Long term (current) use of insulin; Z79.899 Other long term (current) drug therapy; Z72.0 Tobacco use; Z86.14 Personal history of Methicillin resistant Staphylococcus aureus infection; Z22.322 Carrier or suspected carrier of Methicillin resistant Staphylococcus aureus; Z89.512 Acquired absence of left leg below knee
CPT/HCPCS: 11042; 73590; 93923; 99213; G0463

== ENCOUNTER 2020-10-10 14:45 | Outpatient (RCR) | payer MEDICARE, MEDICAID, SELFPAY ==
[2020-09-17 00:35] VITALS: BP 138/81; PULSE 93; RESP 18; TEMP 36.3
[2020-09-19 14:49] VITALS: BP 134/79; PULSE 96; RESP 18; TEMP 37.1; BMI 22.6
[2020-09-19 15:30] VITALS: BP 134/79
--- NOTE | 2020-09-19 16:28 | PCM.WC.PN ---
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 Status: Chronic Code(s): L97.922 - Non-pressure chronic ulcer of unspecified part of left lower leg with fat layer exposed (2) Difficulty walking Status: Chronic Code(s): R26.2 - Difficulty in walking, not elsewhere classified (3) Malnutrition Status: Chronic Code(s): E46 - Unspecified protein-calorie malnutrition (4) Type 1 diabetes, uncontrolled, with neuropathy Status: Chronic Code(s): E10.40 - Type 1 diabetes mellitus with diabetic neuropathy, unspecified; E10.65 - Type 1 diabetes mellitus with hyperglycemia Type of Wound Date of Service: 09/19/20 Chief Complaint: left leg ulcer History of Wound: This 45-year-old male with multiple comorbidities including uncontrolled diabetes complains of a nonhealing left leg ulcer at his previous below-knee amputation stump site. He relates he is now able to monitor his glucose levels many times throughout the day. He has been changing the dressing with dakin solution as advised. This below-knee amputation of the left lower extremity surgery was initially performed at an outside facility in 2018 and it is noted he had a drainage performed at [facility] in January 2020 with orthopedic surgeon, Dr. Nickerson. He also reports he had a revision performed at [facility] over 1 month ago in which additional bone was resected. At that time he was diagnosed with a MRSA infection and was seen by infectious disease specialist, Dr. Sevilla. He was placed on a 6-week course of IV daptomycin. He was then treated at [facility] for diabetic ketoacidosis. His stump site was recultured which ultimately demonstrated rare MRSA growth again. He was seen by infectious disease specialist, Dr. Khoury who recommended a 2-week course of doxycycline. He has completed this course without current redness, pain or odor. Today he denies fever, chill, nausea, vomiting. He is very concerned today that there is a deep abscess and he will keep getting limb threatening infections even though his wound is making good progress. He relates he asked his nurse to stop pressing so hard on the wound site to avoid 'milking' fluid out of this site. The ulcer site has healed. He then reported he got a new wound to the central stump when he put weight on his limb for balance. He asks if he can return to [facility] to proceed forward with prosthetic fitting. Progress of Wound: healed. new central ulcer, stable - Physical Exam Vital Signs Temp Pulse Resp BP 98.7 F 96 18 134/79 H 09/19/20 14:49 09/19/20 14:49 09/19/20 14:49 09/19/20 15:30 General: Alert, Oriented x3, Cooperative, No apparent distress Extremities: No cyanosis, Capillary Refill Less than 3 Seconds, No Calf Tenderness, Diminished Peripheral Pulses, Edema - mild to moderate Skin: Ulcer/ Wound - no purulence, no erythema, no streaking, odor, no infection. adjacent skin is hairless and atrophic left Wound Measurements and Assessment WC - Nurse 1 - General Ulcer Measurement Start: 09/19/20 14:42 Freq: Status: Active Protocol: Activity Type Activity Date Activity User E-Sign Co-Sign Detail Recorded Client Recorded Date Recorded By Document 09/19/20 14:49 DL [id number] 09/19/20 14:56 DL 09/19/20 14:49 Wound Center Nurse 1 [Ulcer Assessment] 1. left BKA -Current Size (cm) - Length 0.4 -Current Size (cm) - Width 0.8 -Current Size (cm) - Depth 0.4 -Total Square Cm 0.32 -Photo Taken No -Undermining/Tunneling Starts (O' 9 clock) -Undermining/Tunneling Ends (O'clock) 2 -Maximum Distance (cm) 0.2 -Exudate Amt Medium -Exudate Type Serosanguineous -Wound Margin Distinct, Outline Attached -Granulation Amt Medium (34-66%) -Granulation Quality Red -Necrosis Amt Medium (34-66%) -Necrotic Tissue Type Adherent Slough -Structure Exposed N/A -Texture (Eliza-wound Skin Appearance) Scarring -Moisture (Eliza-wound Skin Appearance No Abnormality ) -Color (Eliza-wound Skin Appearance) No Abnormality -Temperature (Eliza-wound Skin No Abnormality Appearance) (Pt Warm) -Tenderness on Palpation (Eliza-wound No Skin Appearance) -Ulcer Cleansing Rinsed/ Irrigated with Saline -Foul Odor after Cleansing No -Anesthetic Used 5% Lidocaine Gel WC - Nurse 2 - General Ulcer CM Notes Start: 09/19/20 14:42 Freq: Status: Active Protocol: Activity Type Activity Date Activity User E-Sign Co-Sign Detail Recorded Client Recorded Date Recorded By Document 09/19/20 15:03 [email or web address] [id number] 09/19/20 15:07 [email or web address] 09/19/20 15:03 Wound Center Nurse 2 [Procedure/Treatment] -Time 15:04 -Correct Patient Yes -Correct Side, Site, Position Yes -Correct Procedure Yes -Procedure Performed Yes -Type of Procedure Debridement -Clinical Debridement Subcutaneous -Tissue Removed Subcutaneous -Post Debridement (cm) - Length 0.4 -Post Debridement (cm) - Width 0.8 -Post Debridement (cm) - Depth 0.4 -Total Square (Post) (cm) 0.32 -Area of Debridement (cm) - Length 0.4 -Area of Debridement (cm) - Width 0.8 -Total Square (Area) (cm) 0.32 -Tunneling No -Undermining/Tunneling No -Circular Undermining No -Wound/Ulcer Outcome Not Healed -Ulcer Cleansing Rinsed/ Irrigated with Saline -Foul Odor after Cleansing No -Bioengineered Tissue No -Bleeding Controlled with Pressure -Offloading No -Treatment Response Procedure Tolerated Well -Debridement - Subq, 1st 20sq cm Yes [See Physician Procedure note for Specifics] Pain Scale: 0-10 Numeric [Pain] -Is Patient Pain Free? Yes - Nurse 3 - General Ulcer D/C NN Start: 09/19/20 14:42 Freq: Status: Active Protocol: Activity Type Activity Date Activity User E-Sign Co-Sign Detail Recorded Client Recorded Date Recorded By Document 09/19/20 15:30 RB [id number] 09/19/20 15:32 RB 09/19/20 15:30 Wound Care Nurse 3 [Wound Dressing] 1. left BKA -Ulcer Cleansing Rinsed/ Irrigated with Saline -Other Dressing dakins moiistend gauze -Primary Dressing Covered/Secured Dry Gauze,Dry with Gauze & Roll Gauze,Secured with Tape -Other Covering derek Vital Signs [Blood Pressure] -Blood Pressure (90/60-120/80) 134/79 H -Blood Pressure Mean (mm Hg) 97 -Source Monitor -Position Sitting -Blood Pressure Location Right Arm Pain Scale: 0-10 Numeric [Pain] -Is Patient Pain Free? Yes WC - Visit Discharge [Visit Discharge Information] -Discharge Condition Stable -Ambulatory Status Ambulatory -Transportation Private Auto -Medication Reconcilliation completed No & provided to patient/care provider -Clinical Summary of Care Provided Yes Musculoskeletal: No Tenderness to Palpation of Joints or Extremities, Muscle Wasting, - - left below knee amputation Neurological: - - lack of epicritic sensation via light touch consistent with neuropathy status Psych/Mental Status: Normal Affect, Appropriate Debridement Note Post-Debridement Measurements/Treatment DESTIN - Nurse 2 - General Ulcer CM Notes Start: 09/19/20 14:42 Freq: Status: Active Protocol: Activity Type Activity Date Activity User E-Sign Co-Sign Detail Recorded Client Recorded Date Recorded By Document 09/19/20 15:03 [email or web address] [id number] 09/19/20 15:07 [email or web address] 09/19/20 15:03 Wound Center Nurse 2 1. left BKA -Time 15:04 -Correct Patient Yes -Correct Side, Site, Position Yes -Correct Procedure Yes -Procedure Performed Yes -Type of Procedure Debridement -Clinical Debridement Subcutaneous -Tissue Removed Subcutaneous -Post Debridement (cm) - Length 0.4 -Post Debridement (cm) - Width 0.8 -Post Debridement (cm) - Depth 0.4 -Total Square (Post) (cm) 0.32 -Area of Debridement (cm) - Length 0.4 -Area of Debridement (cm) - Width 0.8 -Total Square (Area) (cm) 0.32 -Tunneling No -Undermining/Tunneling No -Circular Undermining No -Wound/Ulcer Outcome Not Healed -Ulcer Cleansing Rinsed/ Irrigated with Saline -Foul Odor after Cleansing No -Bioengineered Tissue No -Bleeding Controlled with Pressure -Offloading No -Treatment Response Procedure Tolerated Well -Debridement - Subq, 1st 20sq cm Yes Pain Scale: 0-10 Numeric Is Patient Pain Free? Yes - Nurse 3 - General Ulcer D/C NN Start: 09/19/20 14:42 Freq: Status: Active Protocol: Activity Type Activity Date Activity User E-Sign Co-Sign Detail Recorded Client Recorded Date Recorded By Document 09/19/20 15:30 RB [id number] 09/19/20 15:32 RB 09/19/20 15:30 Wound Care Nurse 3 1. left BKA -Ulcer Cleansing Rinsed/ Irrigated with Saline -Other Dressing dakins moiistend gauze -Primary Dressing Covered/Secured with Dry Gauze,Dry Gauze & Roll Gauze,Secured with Tape -Other Covering derek Vital Signs Blood Pressure (90/60-120/80) 134/79 H Blood Pressure Mean (mm Hg) 97 Source Monitor Position Sitting Blood Pressure Location Right Arm Pain Scale: 0-10 Numeric Is Patient Pain Free? Yes WC - Visit Discharge Discharge Condition Stable Ambulatory Status Ambulatory Transportation Private Auto Medication Reconcilliation completed & No provided to patient/care provider Clinical Summary of Care Provided Yes Wound debrided: central below knee amputation stump (new) Laterality: Left Wound Grade/Stage: grade 1 Type of Debridement: Excisional debridement Anesthesia Used: 5% Lidocaine Gel Depth: in the subcutaneous layer Percentage of wound debrided: 100 Instrument Used: #15 blade Tissue Removed: fibrous, devitalized subcutaneous, biofilm, slough Severity: Fat Layer Exposed Amount of bleeding with debridement: Mild Bleeding Controlled with: Pressure Patient tolerated procedure well Assessment/Plan Active Problems (Last Updated 06/25/20 @ 14:54 by Estefani Jaramillo) Ulcer of left lower extremity with fat layer exposed (Chronic) Difficulty walking (Chronic) Malnutrition (Chronic) Type 1 diabetes, uncontrolled, with neuropathy (Chronic) Assessment: Left below-knee amputation stump site ulcer with fat layer exposed healed lateral. left BKA stump central ulcer with fat layer exposed- no infection, new. MRSA cellulitis clinically resolved. Hepatitis. I do not suspect a deep acute abscess today. Uncontrolled diabetes (A1c 13.6 %). Peripheral vascular disease ruled out. Current tobacco use. Malnutrition. left knee pain. phantom limb pain/ neuropathy Plan: I reviewed and discussed his case including his medical records at [facility]. His labs from August 16 were reviewed with white blood cell count of 6.6, ESR 45, C-reactive protein 91. He had labs repeated and his white blood cell count was 8.7, ESR reduced to 23 and C-reactive protein reduced to less than 2.9. His culture from demonstrates rare MRSA growth. I recommended an updated x-ray of the left leg and this was completed. Status post left below-knee amputation without stump osseous proliferation, soft tissue emphysema, foreign body, or osseous destruction seen. There is no gross edema at the stump site either. He was reassured there are no local or systemic signs of infection today and I do not recommend an MRI at this time. If signs of any infection develop I would recommend repeating his infection work-up. He was also reassured that he completed his prior antibiotic and infection management with Dr. Khoury. If he would like additional reassurance on this topic I also recommended follow-up with him in the outpatient setting but he refuses at this time. He was also reassured that continued wound drainage is normal and that his drainage on his dressing today did not look infectious in nature. We reviewed what local signs of infection include he can monitor this at home. I also recommended noninvasive vascular studies to evaluate for perfusion and potential occlusions. This was reviewed and he has good waveforms at the left popliteal level, no evidence of arterial calcification. Therefore, peripheral vascular disease is not suspected and I suspect his pain is more related to neuropathic phantom limb pain and this is exacerbated by his poor glycemic control. His updated A1c was 13.6%. He was advised to continue to change the dressing with Dakin moistened solution with gauze to address any continued bioburden due to his recent treated MRSA infection. He was advised to apply an Derek wrap for compression and additional compression will be recommended after reviewing his arterial status. To avoid weightbearing on the stump site without a prosthetic. To schedule follow up with [facility] in a few weeks. I recommend healed status prior to weight bearing activities. It is imperative he stop smoking and get a better handle on his glucose levels to allow any type of healing potential. He will follow-up for contralateral right lower extremity Charcot evaluation and [facility]. His records will be requested from [facility] and I discussed the case with Bonnie today. There is no right limb order on file at the local facility and I'll consider [place] versus other AFO when he is ready to proceed with right lower extremity charcot evaluation. We briefly discussed these bracing options. He previously asked if an amputation may be the best way to get him back to higher function. I do not advise any surgery or curative versus elective amputation at this time due to his elevated A1c levels. I would like to see him find a viable bracing option. He was advised on local and systemic signs of worsening illness and will monitor this. I am also concerned of his malnutrition status, recent weight loss, and poor diabetes management. He was advised to return the wound healing center in 1 week. I answered his questions. The medical decision making level is limited based on data including the review of prior external notes, review of a prior test, or ordering a test. The problems addressed require a low medical decision making level which includes two or more minor problems, a stable chronic illness, or an acute uncomplicated illness or injury.
[2020-09-26 14:57] VITALS: BP 148/100; PULSE 91; RESP 18; TEMP 36.2; BMI 22.6
--- NOTE | 2020-09-26 16:53 | PCM.WC.PN ---
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 Status: Chronic Code(s): L97.922 - Non-pressure chronic ulcer of unspecified part of left lower leg with fat layer exposed (2) Difficulty walking Status: Chronic Code(s): R26.2 - Difficulty in walking, not elsewhere classified (3) Malnutrition Status: Chronic Code(s): E46 - Unspecified protein-calorie malnutrition (4) Type 1 diabetes, uncontrolled, with neuropathy Status: Chronic Code(s): E10.40 - Type 1 diabetes mellitus with diabetic neuropathy, unspecified; E10.65 - Type 1 diabetes mellitus with hyperglycemia Type of Wound Date of Service: 09/26/20 Chief Complaint: left leg ulcer History of Wound: This 45-year-old male with multiple comorbidities including uncontrolled diabetes complains of a nonhealing left leg ulcer at his previous below-knee amputation stump site. He has been changing the dressing with dakin solution as advised. This below-knee amputation of the left lower extremity surgery was initially performed at an outside facility in 2018 and it is noted he had a drainage performed at [facility] in January 2020 with orthopedic surgeon, Dr. Nickerson. He also reports he had a revision performed at [facility] over 1 month ago in which additional bone was resected. At that time he was diagnosed with a MRSA infection and was seen by infectious disease specialist, Dr. Sevilla. He was placed on a 6-week course of IV daptomycin. He was then treated at [facility] for diabetic ketoacidosis. His stump site was recultured which ultimately demonstrated rare MRSA growth again. He was seen by infectious disease specialist, Dr. Khoury who recommended a 2-week course of doxycycline. He has completed this course without current redness, pain or odor. Today he denies fever, chill, nausea, vomiting.He is very calm today. He did not schedule a follow-up session with the [facility] as advised and he plans to make a phone call this week. Progress of Wound: Improving - Physical Exam Vital Signs Temp Pulse Resp BP 97.1 F L 91 18 148/100 H 09/26/20 14:57 09/26/20 14:57 09/26/20 14:57 09/26/20 14:57 General: Alert, Oriented x3, Cooperative, No apparent distress HEENT: Atraumatic Extremities: Capillary Refill Less than 3 Seconds - Stump site, No Calf Tenderness - Proximal remaining aspect, Diminished Peripheral Pulses, Edema - Decreased to stump site, left Skin: Ulcer/ Wound - Significant peripheral epithelialization is noted with ulcer size reduction. No purulence, erythema, streaking, odor, infection, deep tissue exposure. His adjacent skin is hairless and dry and atrophic Wound Measurements and Assessment WC - Nurse 1 - General Ulcer Measurement Start: 09/19/20 14:42 Freq: Status: Active Protocol: Activity Type Activity Date Activity User E-Sign Co-Sign Detail Recorded Client Recorded Date Recorded By Document 09/26/20 14:57 DL [id number] 09/26/20 15:00 DL 09/26/20 14:57 Wound Center Nurse 1 [Ulcer Assessment] 1. left BKA -Current Size (cm) - Length 0.3 -Current Size (cm) - Width 0.2 -Current Size (cm) - Depth 0.2 -Total Square Cm 0.06 -Photo Taken No -Exudate Amt None Present -Wound Margin Distinct, Outline Attached -Granulation Amt Large (67-100%) -Granulation Quality [place] -Necrosis Amt None Present (0 %) -Structure Exposed N/A -Texture (Eliza-wound Skin Appearance) Scarring -Moisture (Eliza-wound Skin Appearance No Abnormality ) -Color (Eliza-wound Skin Appearance) No Abnormality -Temperature (Eliza-wound Skin No Abnormality Appearance) (Pt Warm) -Tenderness on Palpation (Eliza-wound No Skin Appearance) -Ulcer Cleansing Rinsed/ Irrigated with Saline -Foul Odor after Cleansing No -Anesthetic Used 4% Lidocaine Solution - Nurse 2 - General Ulcer CM Notes Start: 09/19/20 14:42 Freq: Status: Active Protocol: Activity Type Activity Date Activity User E-Sign Co-Sign Detail Recorded Client Recorded Date Recorded By Document 09/26/20 15:16 [email or web address] [id number] 09/26/20 15:17 [id number] 09/26/20 15:16 Wound Center Nurse 2 [Procedure/Treatment] -Time 15:16 -Correct Patient Yes -Correct Side, Site, Position Yes -Correct Procedure Yes -Procedure Performed Yes -Type of Procedure Debridement -Clinical Debridement Subcutaneous -Tissue Removed Subcutaneous -Post Debridement (cm) - Length 0.1 -Post Debridement (cm) - Width 0.4 -Post Debridement (cm) - Depth 0.1 -Total Square (Post) (cm) 0.04 -Area of Debridement (cm) - Length 0.1 -Area of Debridement (cm) - Width 0.4 -Total Square (Area) (cm) 0.04 -Tunneling No -Undermining/Tunneling No -Circular Undermining No -Wound/Ulcer Outcome Not Healed -Ulcer Cleansing Rinsed/ Irrigated with Saline -Foul Odor after Cleansing No -Bioengineered Tissue No -Bleeding Controlled with Pressure -Offloading No -Treatment Response Procedure Tolerated Well -Debridement - Subq, 1st 20sq cm Yes [See Physician Procedure note for Specifics] Pain Scale: 0-10 Numeric [Pain] -Is Patient Pain Free? Yes - Nurse 3 - General Ulcer D/C NN Start: 09/19/20 14:42 Freq: Status: Active Protocol: Activity Type Activity Date Activity User E-Sign Co-Sign Detail Recorded Client Recorded Date Recorded By Document 09/26/20 15:28 [facility] [id number] 09/26/20 15:29 [facility] 09/26/20 15:28 Wound Care Nurse 3 [Wound Dressing] 1. left BKA -Ulcer Cleansing Rinsed/ Irrigated with Saline -Foul Odor after Cleansing No -Primary Dressing Applied Aquacel AG 2x2 -Primary Dressing Covered/Secured Dry Gauze, with Secured with Tape,Other -Other Covering DEREK TO SECURE -Aquacel AG 2x2 1 [Compression Applied] Left -Compression Wrap Derek Wrap [Post Procedure Tolerated] -Treatment Response Procedure Tolerated Well Pain Scale: 0-10 Numeric [Pain] -Is Patient Pain Free? Yes - Visit Discharge [Visit Discharge Information] -Discharge Condition Stable -Ambulatory Status Wheelchair [Facility Notification] -Facility Type Home Health Musculoskeletal: No Tenderness to Palpation of Joints or Extremities, Muscle Wasting, - - Left below-knee amputation Neurological: - - Lack of normal epicritic sensation to light touch Psych/Mental Status: Normal Affect, Appropriate Debridement Note Post-Debridement Measurements/Treatment - Nurse 2 - General Ulcer CM Notes Start: 09/19/20 14:42 Freq: Status: Active Protocol: Activity Type Activity Date Activity User E-Sign Co-Sign Detail Recorded Client Recorded Date Recorded By Document 09/19/20 15:03 [id number] 09/19/20 15:07 Document 09/26/20 15:16 [id number] 09/26/20 15:17 JF 09/19/20 09/26/20 15:03 15:16 Wound Center Nurse 2 1. left BKA -Time 15:04 15:16 -Correct Patient Yes Yes -Correct Side, Site, Position Yes Yes -Correct Procedure Yes Yes -Procedure Performed Yes Yes -Type of Procedure Debridement Debridement -Clinical Debridement Subcutaneous Subcutaneous -Tissue Removed Subcutaneous Subcutaneous -Post Debridement (cm) - Length 0.4 0.1 -Post Debridement (cm) - Width 0.8 0.4 -Post Debridement (cm) - Depth 0.4 0.1 -Total Square (Post) (cm) 0.32 0.04 -Area of Debridement (cm) - Length 0.4 0.1 -Area of Debridement (cm) - Width 0.8 0.4 -Total Square (Area) (cm) 0.32 0.04 -Tunneling No No -Undermining/Tunneling No No -Circular Undermining No No -Wound/Ulcer Outcome Not Healed Not Healed -Ulcer Cleansing Rinsed/ Rinsed/ Irrigated with Irrigated with Saline Saline -Foul Odor after Cleansing No No -Bioengineered Tissue No No -Bleeding Controlled with Pressure Pressure -Offloading No No -Treatment Response Procedure Procedure Tolerated Well Tolerated Well -Debridement - Subq, 1st 20sq cm Yes Yes Pain Scale: 0-10 Numeric Is Patient Pain Free? Yes Yes - Nurse 3 - General Ulcer D/C NN Start: 09/19/20 14:42 Freq: Status: Active Protocol: Activity Type Activity Date Activity User E-Sign Co-Sign Detail Recorded Client Recorded Date Recorded By Document 09/19/20 15:30 [id number] 09/19/20 15:32 RB Document 09/26/20 15:28 [facility] [id number] 09/26/20 15:29 [facility] 09/19/20 09/26/20 15:30 15:28 Wound Care Nurse 3 1. left BKA -Ulcer Cleansing Rinsed/ Rinsed/ Irrigated with Irrigated with Saline Saline -Foul Odor after Cleansing No -Primary Dressing Applied Aquacel AG 2x2 -Other Dressing dakins moiistend gauze -Primary Dressing Covered/Secured with Dry Gauze,Dry Dry Gauze, Gauze & Roll Secured with Gauze,Secured Tape,Other with Tape -Other Covering derek DEREK TO SECURE -Aquacel AG 2x2 1 Left -Compression Wrap Derek Wrap Treatment Response Procedure Tolerated Well Vital Signs Blood Pressure (90/60-120/80) 134/79 H Blood Pressure Mean (mm Hg) 97 Source Monitor Position Sitting Blood Pressure Location Right Arm Pain Scale: 0-10 Numeric Is Patient Pain Free? Yes Yes WC - Visit Discharge Discharge Condition Stable Stable Ambulatory Status Ambulatory Wheelchair Transportation Private Auto Medication Reconcilliation completed & No provided to patient/care provider Clinical Summary of Care Provided Yes Facility Type Home Health Wound debrided: anterior central below knee amputation stump site Laterality: Left Wound Grade/Stage: grade 1 Type of Debridement: Excisional debridement Anesthesia Used: 5% Lidocaine Gel Depth: in the subcutaneous layer Percentage of wound debrided: 100 Instrument Used: #15 blade Tissue Removed: fibrous, devitalized subcutaneous, biofilm, slough Severity: Fat Layer Exposed Amount of bleeding with debridement: Mild Bleeding Controlled with: Pressure Patient tolerated procedure well Assessment/Plan Active Problems (Last Updated 06/25/20 @ 14:54 by Estefani Jaramillo) Ulcer of left lower extremity with fat layer exposed (Chronic) Difficulty walking (Chronic) Malnutrition (Chronic) Type 1 diabetes, uncontrolled, with neuropathy (Chronic) Assessment: Left below-knee amputation stump site ulcer with fat layer exposed healed lateral. left BKA stump central ulcer with fat layer exposed- no infection, improving. MRSA cellulitis clinically resolved. Hepatitis. I do not suspect a deep acute abscess today. Uncontrolled diabetes (A1c 13.6 %). Peripheral vascular disease ruled out. Current tobacco use. Malnutrition. left knee pain. phantom limb pain/ neuropathy Plan: I reviewed and discussed his case including his medical records at [facility]. His labs from August 16 were reviewed with white blood cell count of 6.6, ESR 45, C-reactive protein 91. He had labs repeated and his white blood cell count was 8.7, ESR reduced to 23 and C-reactive protein reduced to less than 2.9. His culture from demonstrates rare MRSA growth. I recommended an updated x-ray of the left leg and this was completed. Status post left below-knee amputation without stump osseous proliferation, soft tissue emphysema, foreign body, or osseous destruction seen. There is no gross edema at the stump site either. He was reassured there are no local or systemic signs of infection today and I do not recommend an MRI at this time. If signs of any infection develop I would recommend repeating his infection work-up. He was also reassured that he completed his prior antibiotic and infection management with Dr. Khoury. I also recommended noninvasive vascular studies to evaluate for perfusion and potential occlusions. This was reviewed and he has good waveforms at the left popliteal level, no evidence of arterial calcification. Therefore, peripheral vascular disease is not suspected and I suspect his pain is more related to neuropathic phantom limb pain and this is exacerbated by his poor glycemic control. His updated A1c was 13.6%. He was advised to continue to change the dressing with silver product such as aquacell ag moistened solution with gauze that he has at home already daily. To gently wash with soap and water. He was advised to apply an Derek wrap for compression and additional compression will be recommended after reviewing his arterial status. To avoid weightbearing on the stump site without a prosthetic. To schedule follow up with [facility] in a few weeks. I recommend healed status prior to weight bearing activities. It is imperative he stop smoking and get a better handle on his glucose levels to allow any type of healing potential. He will follow-up for contralateral right lower extremity Charcot evaluation and treatment at the foot [facility] ankle center. His records will be requested from [facility] and I discussed the case with Bonnie today. There is no right limb order on file at the local facility and I'll consider [place] versus other AFO when he is ready to proceed with right lower extremity charcot evaluation. We briefly discussed these bracing options. He previously asked if an amputation may be the best way to get him back to higher function. I do not advise any surgery or curative versus elective amputation at this time due to his elevated A1c levels. I would like to see him find a viable bracing option. He was advised on local and systemic signs of worsening illness and will monitor this. I am also concerned of his malnutrition status, recent weight loss, and poor diabetes management. He was advised to return the wound healing center in 1 to 2 weeks. I answered his questions. Note: [employer] speech recognition cake winder software was used to create portions of this document. Sound-alike and misspelled words, as well as other cake winder errors may be contained in the documentation.
[2020-10-10 14:45] VITALS: BP 134/86; PULSE 94; RESP 16; TEMP 36.1; BMI 22.6
--- NOTE | 2020-10-10 17:56 | PCM.WC.PN ---
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 Status: Resolved Code(s): L97.922 - Non-pressure chronic ulcer of unspecified part of left lower leg with fat layer exposed (2) Difficulty walking Status: Chronic Code(s): R26.2 - Difficulty in walking, not elsewhere classified (3) Malnutrition Status: Chronic Code(s): E46 - Unspecified protein-calorie malnutrition (4) Type 1 diabetes, uncontrolled, with neuropathy Status: Chronic Code(s): E10.40 - Type 1 diabetes mellitus with diabetic neuropathy, unspecified; E10.65 - Type 1 diabetes mellitus with hyperglycemia (5) Charcot's joint, right ankle and foot Status: Chronic Code(s): M14.671 - Charcot's joint, right ankle and foot Type of Wound Date of Service: 10/10/20 Chief Complaint: left leg ulcer History of Wound: This 45-year-old male with multiple comorbidities including uncontrolled diabetes complains of a nonhealing left leg ulcer at his previous below-knee amputation stump site. He discontinue dressing care and home health visits because the ulcer is healed. He denies drainage, redness, fever, chill, nausea, vomiting. He is still trying to get scheduled at [facility] to get his prosthetic device updated. Progress of Wound: Healed - Physical Exam Vital Signs Temp Pulse Resp BP 96.9 F L 94 16 134/86 H 10/10/20 14:45 10/10/20 14:45 10/10/20 14:45 10/10/20 14:45 General: Alert, Oriented x3, Cooperative, No apparent distress HEENT: Atraumatic Extremities: No cyanosis, Capillary Refill Less than 3 Seconds, No Calf Tenderness, Diminished Peripheral Pulses, Edema, - - Below-knee amputation Skin: Ulcer/ Wound - No purulence, erythema, streaking, odor, infection. The ulcer site has healed and there is full epithelialization. His skin is atrophic Wound Measurements and Assessment WC - Nurse 1 - General Ulcer Measurement Start: 09/19/20 14:42 Freq: Status: Active Protocol: Activity Type Activity Date Activity User E-Sign Co-Sign Detail Recorded Client Recorded Date Recorded By Document 10/10/20 14:45 [facility] [id number] 10/10/20 14:51 BMF 10/10/20 14:45 Wound Center Nurse 1 [Ulcer Assessment] 1. left BKA -Combined with other wound No -Current Size (cm) - Length 0.1 -Current Size (cm) - Width 0.1 -Current Size (cm) - Depth 0.1 -Total Square Cm 0.01 -Photo Taken No -Epithelialization Large 67-100% -Tunneling No -Undermining/Tunneling No -Circular Undermining No -Exudate Amt None Present -Texture (Eliza-wound Skin Appearance) Assessed, Scarring -Moisture (Eliza-wound Skin Appearance Assessed,Dry/ ) Scaly -Color (Eliza-wound Skin Appearance) Assessed -Temperature (Eliza-wound Skin No Abnormality Appearance) (Pt Warm) -Tenderness on Palpation (Eliza-wound No Skin Appearance) -Ulcer Cleansing Rinsed/ Irrigated with Saline -Foul Odor after Cleansing No -Anesthetic Used 5% Lidocaine Gel - Nurse 2 - General Ulcer CM Notes Start: 09/19/20 14:42 Freq: Status: Active Protocol: Activity Type Activity Date Activity User E-Sign Co-Sign Detail Recorded Client Recorded Date Recorded By Document 10/10/20 15:52 [id number] 10/10/20 15:54 10/10/20 15:52 Wound Center Nurse 2 [Procedure/Treatment] -Correct Patient No -Correct Side, Site, Position No -Correct Procedure No -Procedure Performed No -Post Debridement (cm) - Length 0 -Post Debridement (cm) - Width 0 -Post Debridement (cm) - Depth 0 -Total Square (Post) (cm) 0 -Area of Debridement (cm) - Length 0 -Area of Debridement (cm) - Width 0 -Total Square (Area) (cm) 0 -Wound/Ulcer Outcome Healed- Epithelialized [See Physician Procedure note for Specifics] - Nurse 3 - General Ulcer D/C NN Start: 09/19/20 14:42 Freq: Status: Active Protocol: Activity Type Activity Date Activity User E-Sign Co-Sign Detail Recorded Client Recorded Date Recorded By Document 10/10/20 15:56 [id number] 10/10/20 15:57 10/10/20 15:56 Pain Scale: 0-10 Numeric [Pain] -Is Patient Pain Free? Yes - Visit Discharge [Visit Discharge Information] -Discharge Condition Stable -Ambulatory Status Wheelchair -Transportation Private Auto -Medication Reconcilliation completed Yes & provided to patient/care provider -Clinical Summary of Care Provided Yes Musculoskeletal: Muscle Wasting, - - Valgus hindfoot position noted in athletic sneaker Neurological: - - Lack of normal epicritic sensation light touch is consistent with his neuropathic status Psych/Mental Status: Normal Affect, Appropriate Debridement Note Post-Debridement Measurements/Treatment - Nurse 2 - General Ulcer CM Notes Start: 09/19/20 14:42 Freq: Status: Active Protocol: Activity Type Activity Date Activity User E-Sign Co-Sign Detail Recorded Client Recorded Date Recorded By Document 09/19/20 15:03 [id number] 09/19/20 15:07 Document 09/26/20 15:16 [id number] 09/26/20 15:17 Document 10/10/20 15:52 [id number] 10/10/20 15:54 09/19/20 09/26/20 10/10/20 15:03 15:16 15:52 Wound Center Nurse 2 1. left BKA -Time 15:04 15:16 -Correct Patient Yes Yes No -Correct Side, Site, Position Yes Yes No -Correct Procedure Yes Yes No -Procedure Performed Yes Yes No -Type of Procedure Debridement Debridement -Clinical Debridement Subcutaneous Subcutaneous -Tissue Removed Subcutaneous Subcutaneous -Post Debridement (cm) - Length 0.4 0.1 0 -Post Debridement (cm) - Width 0.8 0.4 0 -Post Debridement (cm) - Depth 0.4 0.1 0 -Total Square (Post) (cm) 0.32 0.04 0 -Area of Debridement (cm) - Length 0.4 0.1 0 -Area of Debridement (cm) - Width 0.8 0.4 0 -Total Square (Area) (cm) 0.32 0.04 0 -Tunneling No No -Undermining/Tunneling No No -Circular Undermining No No -Wound/Ulcer Outcome Not Healed Not Healed Healed- Epithelialized -Ulcer Cleansing Rinsed/ Rinsed/ Irrigated with Irrigated with Saline Saline -Foul Odor after Cleansing No No -Bioengineered Tissue No No -Bleeding Controlled with Pressure Pressure -Offloading No No -Treatment Response Procedure Procedure Tolerated Well Tolerated Well -Debridement - Subq, 1st 20sq cm Yes Yes Pain Scale: 0-10 Numeric Is Patient Pain Free? Yes Yes DESTIN - Nurse 3 - General Ulcer D/C NN Start: 09/19/20 14:42 Freq: Status: Active Protocol: Activity Type Activity Date Activity User E-Sign Co-Sign Detail Recorded Client Recorded Date Recorded By Document 09/19/20 15:30 [id number] 09/19/20 15:32 RB Document 09/26/20 15:28 [facility] [id number] 09/26/20 15:29 [facility] Document 10/10/20 15:56 [id number] 10/10/20 15:57 09/19/20 09/26/20 10/10/20 15:30 15:28 15:56 Wound Care Nurse 3 1. left BKA -Ulcer Cleansing Rinsed/ Rinsed/ Irrigated with Irrigated with Saline Saline -Foul Odor after Cleansing No -Primary Dressing Applied Aquacel AG 2x2 -Other Dressing dakins moiistend gauze -Primary Dressing Covered/Secured with Dry Gauze,Dry Dry Gauze, Gauze & Roll Secured with Gauze,Secured Tape,Other with Tape -Other Covering derek DEREK TO SECURE -Aquacel AG 2x2 1 Left -Compression Wrap Derek Wrap Treatment Response Procedure Tolerated Well Vital Signs Blood Pressure (90/60-120/80) 134/79 H Blood Pressure Mean (mm Hg) 97 Source Monitor Position Sitting Blood Pressure Location Right Arm Pain Scale: 0-10 Numeric Is Patient Pain Free? Yes Yes Yes WC - Visit Discharge Discharge Condition Stable Stable Stable Ambulatory Status Ambulatory Wheelchair Wheelchair Transportation Private Auto Private Auto Medication Reconcilliation completed & No Yes provided to patient/care provider Clinical Summary of Care Provided Yes Yes Facility Type Home Health Wound debrided: leg Laterality: Left No debridement was completed today - healed Assessment/Plan Active Problems (Last Updated 06/25/20 @ 14:54 by Estefani Jaramillo) Charcot's joint, right ankle and foot (Chronic) Difficulty walking (Chronic) Malnutrition (Chronic) Type 1 diabetes, uncontrolled, with neuropathy (Chronic) Assessment: Left below-knee amputation stump site ulcer with fat layer exposed - healed. MRSA cellulitis clinically resolved. Hepatitis. Uncontrolled diabetes (A1c 13.6 %). Peripheral vascular disease ruled out. Current tobacco use. Malnutrition. phantom limb pain/ neuropathy. Right foot Charcot Plan: I reviewed and discussed his case including his case including his prior medical records from outside facilities and [facility]. His ulcer site appears healed today. To continue with discontinuation of dressing care and home health. To monitor closely for recurrence of ulcer or infection in which neither is noted today. To prevent pressure on the site. To follow-up with antibiotic to get a prosthetic device refitted. To gently clean daily with soap and water and to keep moisturized to keep his skin integrity intact. To continue to proceed forward with proper glycemic control with improved daily activities, nutrition, and medication. To avoid weightbearing on the stump site without a prosthetic. I recommend healed status prior to weight bearing activities. It is imperative he stop smoking and get a better handle on his glucose levels to allow any type of healing potential. He will follow-up for contralateral right lower extremity Charcot evaluation and treatment at the foot and ankle center. He is discharged from the wound healing center at this time. Note: [employer] speech recognition aoc director intelligence officer software was used to create portions of this document. Sound-alike and misspelled words, as well as other aoc director intelligence officer errors may be contained in the documentation. The problems addressed require a low medical decision making level which includes two or more minor problems, a stable chronic illness, or an acute uncomplicated illness or injury. The medical decision making level is low. There is noted low risk of morbidity after considering this treatment plan and diagnostic data.
== END 2020-10-17 23:59 ==
LOC: WC 14:45
PROVIDERS: PCP Internal Medicine; Referring Provider Podiatrist; Visit Provider Podiatrist
DX: T87.89 Other complications of amputation stump (principal); L97.822 Non-pressure chronic ulcer of other part of left lower leg with fat layer exposed; G54.6 Phantom limb syndrome with pain; Y83.5 Amputation of limb(s) as the cause of abnormal reaction of the patient, or of later complication, without mention of misadventure at the time of the procedure; Y92.9 Unspecified place or not applicable; E10.65 Type 1 diabetes mellitus with hyperglycemia; E10.40 Type 1 diabetes mellitus with diabetic neuropathy, unspecified; R26.2 Difficulty in walking, not elsewhere classified; Z79.4 Long term (current) use of insulin; Z79.899 Other long term (current) drug therapy; Z86.14 Personal history of Methicillin resistant Staphylococcus aureus infection; Z89.512 Acquired absence of left leg below knee
CPT/HCPCS: 11042; 99213; G0463

== ENCOUNTER → 2021-05-06 10:26 | Outpatient (CLI) | payer MEDICARE, MEDICAID, SELFPAY ==
--- NOTE | 2021-05-06 10:28 | US_ITS ---
STUDY: ABDOMINAL ULTRASOUND - RIGHT UPPER QUADRANT REASON FOR VISIT: Male, 46 years old Hepatitis C TECHNIQUE: Ultrasound evaluation of the right upper quadrant was performed with real-time and static mariscal-scale imaging. TECHNICAL QUALITY: Adequate. COMPARISON: None. FINDINGS: Liver: The liver measures 16.4 cm. There is normal echogenicity of the liver. The bile ducts are within normal limits. There is hepatic color flow. The direction of portal flow is hepatopetal. There is no demonstrated mass lesion. Gallbladder: Normal distended gallbladder. The gallbladder wall measures 2 mm. There is a negative sonographic Hodge''s sign. There is no pericholecystic fluid. There are no gallstones. There is a 2 mm gallbladder polyp. Common Bile Duct (C.B.D.): The common bile duct measures 5.5 mm. Pancreas: Normal size of the head, body and tail of the pancreas. There is normal echogenicity of the pancreas. There is no demonstrated pancreatic mass or cyst. Right Kidney: Normal size of the right kidney. The right kidney measures 13.2 cm x 6.1 cm x 6.5 cm. Normal renal cortex. The right cortex measures 2.2 cm. There is no demonstrated renal mass or cyst. There is no right hydronephrosis. US/Liver IMPRESSION: 2 mm gallbladder polyp. The liver is unremarkable. Electronically Signed: Guy Parson MD at 13:05 EDT , Service support ,
== END ==
PROVIDERS: PCP Internal Medicine; Referring Provider Internal Medicine Gastroenterology; Visit Provider Internal Medicine Gastroenterology
DX: B18.2 Chronic viral hepatitis C (principal)
CPT/HCPCS: 76705

== ENCOUNTER → 2021-05-17 14:11 | Outpatient (CLI) | payer MEDICARE, MEDICAID, SELFPAY ==
[2021-05-17 14:48] LABS: Absolute Lymphocyte Count 1.83 X10^3/uL (0.83-4.51); Absolute Neutrophil Count 3.8 X10^3/uL (2.0-7.7); Basophil# 0.12 X10^3/uL; Basophil% 1.8 % (0-1); Eosinophil# 0.52 X10^3/uL; Eosinophils% 7.7 % (0-5); Hematocrit 43.4 % (40-54); Hemoglobin 14.1 g/dL (13.0-16.5); Lymphocyte # 1.83 X10^3/ul (0.83-4.51); Lymphocyte % 27.2 % (19-41); Mean Corp Hgb Conc 32.5 g/dL (32-36); Mean Corpuscular Hgb 26.7 pg (27.0-32.0); Mean Platelet Vol. 11.6 fl (6.2-12.0); Monocyte# 0.48 X10^3/uL; Monocyte% 7.1 % (0-10); NRBC Flagged by Analyzer 0 % (0-5); Neutrophil # 3.78 X10^3/uL (2.7-7.7); Neutrophil % 56.1 % (47-70); Platelet Count 175 K/mm3 (150-450); RBC Distribution Width CV 16.7 % (11.6-14.6); RBC Distribution Width SD 49.9 fl (35.1-43.9); Red Blood Count 5.29 M/mm3 (4.6-6.2); White Blood Count 6.7 K/mm3 (4.4-11.0)
[2021-05-17 15:09] LABS: AST(SGOT) 15 U/L (15-37); Alanine Aminotransfer ALT/SGPT 16 U/L (16-61); Albumin, Serum 3.4 g/dL (3.2-5.0); Alkaline Phosphatase 83 U/L (45-117); Bilirubin, Direct 0.13 mg/dL (0.00-0.30); Globulin 3.9 g/dL (2.2-4.2); Protein, Total 7.3 g/dL (6.4-8.2)
== END ==
PROVIDERS: PCP Internal Medicine; Referring Provider Internal Medicine Gastroenterology; Visit Provider Internal Medicine Gastroenterology
DX: B18.2 Chronic viral hepatitis C (principal); L03.116 Cellulitis of left lower limb
CPT/HCPCS: 36415; 80076; 82105; 85025; 87522; 87902

== ENCOUNTER → 2021-05-24 16:41 | Outpatient (CLI) | payer MEDICARE, MEDICAID, SELFPAY ==
[2021-05-24 17:32] LABS: Erythrocyte Sedimentation Rate 26 mm/hr (0-20)
[2021-05-24 18:17] LABS: CRP < 2.90 mg/L (0.0-3.0)
[2021-05-29 15:08] LABS: Albumin 3.5 g/dL (2.9-4.4); Alpha-1-Globulins 0.3 g/dL (0.0-0.4); Alpha-2-Globulins 0.7 g/dL (0.4-1.0); Gamma Globulin 1.1 g/dL (0.4-1.8); Immunoglobulin A 172 mg/dL (90-386); Immunoglobulin G 871 mg/dL (603-1613); Immunoglobulin M 297 mg/dL (20-172); PROEL- TOTAL PROTEIN 6.5 g/dL (6.0-8.5)
[2021-05-30 17:03] LABS: Immunoglobulin E 43 IU/mL (6-495)
== END ==
PROVIDERS: PCP Internal Medicine; Referring Provider Internal Medicine Gastroenterology; Visit Provider Internal Medicine Gastroenterology
DX: B18.2 Chronic viral hepatitis C (principal)
CPT/HCPCS: 36415; 82784; 82785; 84165; 85652; 86140; 86334

== ENCOUNTER → 2021-06-14 16:42 | Outpatient (CLI) | payer MEDICARE, MEDICAID, SELFPAY ==
--- NOTE | 2021-06-14 16:46 | CT_ITS ---
STUDY: CT ABDOMEN AND PELVIS WITH CONTRAST REASON FOR EXAM: Male, 46 years old. abdominal pain and weight loss RADIATION DOSAGE (If Supplied By Facility): CTDIvol = ( 13.73 ) mGy, DLP = ( 934.34 ) mGycm TECHNIQUE: Transaxial images were obtained from the dome of the diaphragm to the symphysis pubis without oral contrast. IV 100mL Isovue-370 was administered. Sagittal and coronal images were reconstructed. Individualized dose optimization techniques were used for this CT. COMPARISON: None. FINDINGS: The visualized lung bases are unremarkable. The visualized portions of the heart are within normal limits. Normal liver. Normal gallbladder and extrahepatic biliary system. Normal spleen. Normal pancreas. Normal bilateral adrenal glands. Normal right kidney. Normal left kidney. Normal visualized stomach. Normal small intestine. Normal colon. There is non-visualization of the appendix. There is diffuse atherosclerotic calcification of the abdominal aorta, without a demonstrated aneurysm. Normal inferior vena cava. Normal retroperitoneum. Normal urinary bladder. Normal abdominal wall. Normal osseous structures. CT/Abdomen/Pelvis W IV Cont ONLY IMPRESSION: Normal enhanced CT of the abdomen and pelvis. Electronically Signed: Дмитрий Joiner MD at 7:43 EST Tel , Service support ,
[2021-06-14 17:00] LABS: CREATININE FINGERSTICK 0.7 mg/dL (0.70-1.30); EGFR FINGERSTICK > 60.0000 mL/min (>60)
== END ==
PROVIDERS: PCP Internal Medicine; Referring Provider Internal Medicine Gastroenterology; Visit Provider Internal Medicine Gastroenterology
DX: Z01.812 Encounter for preprocedural laboratory examination (principal); R10.9 Unspecified abdominal pain; R63.4 Abnormal weight loss; R11.10 Vomiting, unspecified
CPT/HCPCS: 74177; Q9967

== ENCOUNTER 2021-09-14 21:40 | Inpatient (IN) | payer MEDICARE, MEDICAID, SELFPAY ==
[2021-09-14 21:41] VITALS: BP 171/98; PULSE 94; TEMP 36.2; O2SAT 98; BMI 25.4
[2021-09-14 21:45] VITALS: BP 171/98; PULSE 94; RESP 18; TEMP 36.2; O2SAT 98
[2021-09-14] MEDS: HYDROmorphone 0.5 MG/0.5 ML SYRINGE IV (22:06)
[2021-09-14 22:10] LABS: Absolute Neutrophil Count 9.2 X10^3/uL (2.0-7.7); Basophil# 0.08 X10^3/uL; Basophil% 0.7 % (0-1); Eosinophil# 0.33 X10^3/uL; Eosinophils% 2.7 % (0-5); Hematocrit 48.6 % (40-54); Hemoglobin 16.8 g/dL (13.0-16.5); Lymphocyte % 15.5 % (19-41); Mean Corp Hgb Conc 34.6 g/dL (32-36); Mean Corpuscular Hgb 30.2 pg (27.0-32.0); Mean Corpuscular Volume 87.3 fL (80-94); Mean Platelet Vol. 11.3 fl (6.2-12.0); Monocyte# 0.75 X10^3/uL; Monocyte% 6.1 % (0-10); NRBC Flagged by Analyzer 0 % (0-5); Neutrophil # 9.16 X10^3/uL (2.7-7.7); Neutrophil % 74.8 % (47-70); Platelet Count 211 K/mm3 (150-450); RBC Distribution Width CV 14.5 % (11.6-14.6); RBC Distribution Width SD 46.5 fl (35.1-43.9); Red Blood Count 5.57 M/mm3 (4.6-6.2); White Blood Count 12.3 K/mm3 (4.4-11.0)
--- NOTE | 2021-09-14 22:10 | RAD_ITS ---
STUDY: X-RAY - LEFT TIBIA AND FIBULA REASON FOR EXAM: Male, 46 years old. pain TECHNIQUE: 2 view(s) of the tibia and fibula were obtained. COMPARISON: 08/29/2020 FINDINGS: Below-knee amputation. No destructive bony process. There is non-specific soft tissue swelling increased since prior study. RAD/Tibia & Fibula 2 Views IMPRESSION: Increased nonspecific soft tissue swelling below-knee amputation stump. No destructive bony process. Electronically Signed: Shen Brito MD (Brooks) at 22:57 EST Reading Location ID and State: [facility] / [place] , Service support ,
[2021-09-14 22:26] LABS: ALB/GLOB Ratio 0.9 RATIO (0.9-2.4); AST(SGOT) 11 U/L (15-37); Alanine Aminotransfer ALT/SGPT 13 U/L (16-61); Albumin, Serum 3.4 g/dL (3.2-5.0); Alkaline Phosphatase 87 U/L (45-117); Anion Gap 5 (5-15); BUN 17 mg/dL (7-18); BUN/Creat Ratio 17.8 RATIO (10-20); CRP 5.31 mg/L (0.0-3.0); Calcium,Total 9.3 mg/dL (8.5-10.1); Chloride 99 mmol/L (98-107); Creatinine, Serum 0.95 mg/dL (0.70-1.30); EST Glomerular Filtration Rate 90 mL/min (>60); Est Glom Filt Rate - Afr Amer 109 mL/min (>60); Estimated Creatinine Clearance 96.13 ml/min; Globulin 3.9 g/dL (2.2-4.2); Glucose 376 mg/dL (74-106); Potassium 4.4 mmol/L (3.5-5.1); Protein, Total 7.3 g/dL (6.4-8.2); Sodium Level 134 mmol/L (136-145)
[2021-09-14 22:30] LABS: Erythrocyte Sedimentation Rate 33 mm/hr (0-20)
[2021-09-14 22:41] LABS: Bedside Glucose 285 mg/dL (70-110)
--- NOTE | 2021-09-14 23:35 | EX.ED.DYSGE1 ---
HPI History of Present Illness Chief Complaint: Wound Narrative Narrative: Patient is presenting with a left leg wound, he did have a below the knee amputation few years ago with revision about a year ago, he has had pain for 2 days and then today developed redness and saw some discharge from his left leg. No fevers chills cough congestion no lymphangitic streaking. [facility] Medical History Charcot ankle Charcot foot due to diabetes mellitus Diabetes mellitus History of left below knee amputation Neuropathy Home Medications lisinopril 10 mg PO DAILY 10/04/19 [History Last Taken 08/12/20] insulin lispro 6 unit SUBCUT TID 01/25/20 [History Last Taken 3 Days Ago ~08/10/20] gabapentin 300 mg PO TID 08/13/20 [History Last Taken 08/12/20] insulin glargine 22 unit SQ QHS 08/13/20 [History Last Taken 08/12/20] pantoprazole 40 mg PO DAILY 08/13/20 [History Last Taken 08/12/20] Allergy/AdvReac Type Severity Reaction Status Date / Time No Known Allergies Allergy Verified 09/14/21 21:45 Social History Smoking Status: Heavy Smoker (>10/day) ROS ROS ED ROS Narrative Past medical history: Reviewed, significant for type 1 diabetes otherwise as in HPI Medications: Reviewed Social history: Noncontributory Review of systems: All systems negative except as indicated General: No fever Eyes: No visual changes ENT: No upper airway congestion, normal voice Neck: No neck pain Cardiovascular: No chest pain Respiratory: No shortness of breath or cough Gastrointestinal: No abdominal pain, nausea vomiting or diarrhea Genitourinary: No dysuria Musculoskeletal: As in HPI Skin: As in HPI Neurological: No memory loss, confusion or any focal weakness Psych: No recent behavioral changes Hematologic: No easy bleeding or easy bruising EXAM Physical Exam Narrative Exam Narrative: Physical exam General: Well nourished, Well developed, No Acute Distress Head: Normocephalic, Atraumatic Eyes: Conjunctiva not pale ENT: Slightly dry mucous membranes Neck: Supple, Nontender, No lymphadenopathy Cardiovascular: Regular rate, Regular rhythm Respiratory: No distress, CTA bilaterally Abdomen: Soft, Nontender, Nondistended Back: Nontender, Normal Inspection. Negative for: CVA tenderness Extremities: The below the knee amputation has slight dehiscence of his chronic wound there is some pus expectorated, there is surrounding erythema about 5 to 6 cm in diameter. No crepitus. Skin: As above Neurological: Alert, Normal Strength, Normal Sensation Psychological: Normal affect Const Vital Signs: 09/14/21 21:41 09/14/21 21:45 Temperature 97.2 F L 97.2 F L Temperature Source Temporal Temporal Pulse Rate 94 94 Respiratory Rate 18 Blood Pressure 171/98 H 171/98 H Blood Pressure Mean 122 122 Pulse Ox 98 98 Oxygen Delivery Method Room Air Room Air MDM MDM MDM Narrative Medical decision making narrative: Patient has slight leukocytosis with slight elevation of the CRP and ESR, no obvious osteomyelitis on x-ray. I discussed with orthopedics and medicine for admission. Clindamycin was started. Lab Data Labs: Laboratory Results - last 24 hr 09/14/21 09/14/21 09/14/21 21:55 21:55 22:35 WBC 12.3 H RBC 5.57 Hgb 16.8 H Hct 48.6 MCV 87.3 MCH 30.2 MCHC 34.6 RDW Std Deviation 46.5 H RDW Coeff of Candace 14.5 Plt Count 211 MPV 11.3 Immature Gran % (Auto) 0.200 Neut % (Auto) 74.8 H Lymph % (Auto) 15.5 L [place] % (Auto) 6.1 Eos % (Auto) 2.7 Baso % (Auto) 0.7 Absolute Neuts (auto) 9.2 H Absolute Lymphs (auto) 1.90 Nucleated RBC % 0 ESR 33 H Sodium 134 L Potassium 4.4 Chloride 99 Carbon Dioxide 30.0 Anion Gap 5 BUN 17 Creatinine 0.95 Estim Creat Clear Calc 96.13 Est GFR (MDRD) Af Amer 109 Est GFR (MDRD) Non-Af 90 BUN/Creatinine Ratio 17.8 Glucose 376 H Calcium 9.3 Total Bilirubin 0.20 AST 11 L ALT 13 L Alkaline Phosphatase 87 C-React Prot Ext Range 5.31 H Total Protein 7.3 Albumin 3.4 Globulin 3.9 Albumin/Globulin Ratio 0.9 POC Glucose 285 H Radiography Diagnostic Testing: Clinical Impression(s) from Imaging Studies Tibia/Fibula X-Ray 09/14/21 22:10 IMPRESSION: Increased nonspecific soft tissue swelling below-knee amputation stump. No destructive bony process. Electronically Signed: Shen Brito MD (Brooks) at 22:57 EST Reading Location ID and State: [facility] / [place] , Service support , Discharge Plan Triage Chief Complaint: Wound ED Provider: Jordy Townsend Dx/Rx/DC Orders Clinical Impression: Leg wound, left Prescriptions: No Action lisinopril 10 MG tablet 10 mg PO DAILY RF: 0 insulin lispro 100 UNIT/ML insulin pen 6 unit subcut TID RF: 0 pantoprazole 40 MG tablet 40 mg PO DAILY RF: 0 insulin glargine 100 UNIT/ML solution 22 unit SQ QHS RF: 0 gabapentin 300 MG capsule 300 mg PO TID RF: 0 Primary Care Provider: Samson Garcia Referrals: Samson Garcia MD [Primary Care Provider] - Disposition Disposition: Acute Care Hospital [facility]
--- NOTE | 2021-09-14 23:39 | PCM.HP.STD ---
HPI - General General Date of Admission: 09/14/21 HPI Narrative TORI CANTOR, is a 46 M with a significant history of Charcot; diabetes mellitus and left below the knee amputation with revision and multiple infections of his stump who presents to the emergency department with a pus coming from the stump of his wound. He has had pain in his stump for more than 1 week. On the day of presentation he looked and saw redness to his stump. Further he felt that his stump was warmer. He took a mirror and looked below his stump and saw a pimple. He bust open the pimple and saw pus coming out. [facility] Medical History (Updated 09/15/21 @ 00:[address] Spencer Hraman MD) Charcot ankle Charcot foot due to diabetes mellitus Diabetes mellitus History of left below knee amputation Neuropathy Home Medications lisinopril 10 mg PO DAILY 10/04/19 [History Last Taken 08/12/20] insulin lispro 6 unit SUBCUT TID 01/25/20 [History Last Taken 3 Days Ago ~08/10/20] gabapentin 300 mg PO TID 08/13/20 [History Last Taken 08/12/20] insulin glargine 22 unit SQ QHS 08/13/20 [History Last Taken 08/12/20] pantoprazole 40 mg PO DAILY 08/13/20 [History Last Taken 08/12/20] Allergy/AdvReac Type Severity Reaction Status Date / Time No Known Allergies Allergy Verified 09/14/21 21:45 Family History Other Cancer Diabetes Heart disease Surgical History H/O tooth extraction S/P BKA (below knee amputation) Social History Smoking Status: Heavy Smoker (>10/day) ROS ROS Narrative Constitutional: Denies fever, chills, fatigue, anorexia and change in weight Eyes: Denies blurry vision, change in eye color, change in vision, discharge from eye(s), double vision, erythema, eye pain, loss of vision or other HEENT: Denies abnormal hearing, dysphagia, ear pain, epistaxis, headache(s), hearing loss, nasal congestion, nasal discharge, post nasal drip, sinus pressure, sore throat or other Cardiovascular: Denies chest pain or palpitations. Denies dyspnea on exertion, orthopnea and paroxysmal nocturnal dyspnea Respiratory/Chest: Denies cough, excessive phlegm production, shortness of breath with exertion and wheezing Gastrointestinal: Denies abdominal pain, coffee ground emesis, constipation, diarrhea, dyspepsia, hematemesis, hematochezia, loose stools, melena, nausea, vomiting or other Genitourinary: Denies burning urination, difficulty urinating, dysuria, hematuria, nocturia, urinary frequency, urinary hesitancy, urinary incontinence, urinary urgency or other Musculoskeletal: Reports pain in left below the knee stump. Denies back pain. Neurologic: Denies abnormal gait, abnormal speech, confusion, disequilibrium, dizziness, focal weakness, headache(s), numbness, paresthesias, seizure-like activity, seizures, syncope, tingling, tremor(s) or other Psychiatric: Denies anxiety, depression, homicidal ideation, suicidal ideation or other Endocrinology: Denies change in body appearance, cold intolerance, excessive sweating, heat intolerance, polydipsia, polyuria or other Hematologic/Lymphatic: Denies anemia, easy bleeding, easy bruising, lymphadenopathy or other Integumentary: Erythema and increased warmth at left knee stump. Past drainage from left below the knee stump Allergic/Immunologic: Denies rhinitis, hives, eczema, asthma or other Vital Signs Vital Signs Vital Signs: 09/14/21 21:41 09/14/21 21:45 Temperature 97.2 F L 97.2 F L Temperature Source Temporal Temporal Pulse Rate 94 94 Respiratory Rate 18 Blood Pressure 171/98 H 171/98 H Blood Pressure Mean 122 122 Pulse Ox 98 98 Oxygen Delivery Method Room Air Room Air Weight Weight: 78.2 kg Body Mass Index (BMI) 25.4 Physical Exam Narrative Physical exam: General: Well-nourished, well-developed. Head: Normocephalic, atraumatic, no tenderness Eyes: PERRLA, EOMI ENT, no trauma, moist mucous membranes, no rhinorrhea Neck: Nontender, full range of motion, no spinal tenderness, deformities, step-off CVS: Regular rate and rhythm. S1-S2 present. No murmur, gallop or rub. Respiratory : clear to auscultation bilaterally, chest wall nontender, no wheezing Abdomen: Soft, nontender, nondistended, normal bowel sounds, no masses : Deferred Back: Nontender, no CVA tenderness, no midline spinal tenderness, deformities, step-offs Extremities: Left below the knee stump. Deformity of right foot. Skin: Left below the knee stump with erythema. Normal color, no trauma, abrasions. Neuro: Alert, oriented, cranial nerves II through XII grossly intact. Psychiatry: Normal mood. Normal affect. Not depressed. Not anxious. Results Lab / Micro Data Result Diagrams: 09/14/21 21:55 09/14/21 21:55 Labs: Laboratory Results - last 24 hr 09/14/21 21:55: WBC 12.3 H, RBC 5.57, Hgb 16.8 H, Hct 48.6, MCV 87.3, MCH 30.2, MCHC 34.6, RDW Std Deviation 46.5 H, RDW Coeff of Candace 14.5, Plt Count 211, MPV 11.3, Immature Gran % (Auto) 0.200, Neut % (Auto) 74.8 H, Lymph % (Auto) 15.5 L, [place] % (Auto) 6.1, Eos % (Auto) 2.7, Baso % (Auto) 0.7, Absolute Neuts (auto) 9.2 H, Absolute Lymphs (auto) 1.90, Nucleated RBC % 0, ESR 33 H 09/14/21 21:55: Sodium 134 L, Potassium 4.4, Chloride 99, Carbon Dioxide 30.0, Anion Gap 5, BUN 17, Creatinine 0.95, Estim Creat Clear Calc 96.13, Est GFR (MDRD) Af Amer 109, Est GFR (MDRD) Non-Af 90, BUN/Creatinine Ratio 17.8, Glucose 376 H, Calcium 9.3, Total Bilirubin 0.20, AST 11 L, ALT 13 L, Alkaline Phosphatase 87, C-React Prot Ext Range 5.31 H, Total Protein 7.3, Albumin 3.4, Globulin 3.9, Albumin/Globulin Ratio 0.9 09/14/21 22:35: POC Glucose 285 H Radiology Impression Tibia/Fibula X-Ray 09/14/21 22:10 IMPRESSION: Increased nonspecific soft tissue swelling below-knee amputation stump. No destructive bony process. Electronically Signed: Shen Brito MD (Brooks) at 22:57 EST , Assessment & Plan Assessment/Plan (1) Wound infection: (2) Type 1 diabetes, uncontrolled, with neuropathy: PLAN: Left below the knee stump infection Patient meets SIRS criteria with heart rate of more than 90; white blood cell count of 12.3. qSOFA is 0 sepsis ruled out. Review of previous microbiology showed wound drainage and tissue culture positive for MRSA but sensitive to multiple [id number] antibiotics. Previous MRSA was sensitive to clindamycin. Received clindamycin at the emergency department and continued. Emergency plan doctor discussed the case with orthopedic surgeon who will follow. Orthopedic surgery consult. ESR presentation was 33. CRP was 5.31 Trend CBC and BMP. Type 1 diabetes, uncontrolled with neuropathy Patient with hyperglycemia on presentation Basal insulin adjusted. We will keep patient n.p.o. for possible debridement. Hold prandial insulin. Accu-Chek every 4 hours of correction scale insulin ordered. Hypertension Blood pressure is not within goal Reportedly he takes 5 mg daily of lisinopril but dosage was changed to 10 mg which he has not started taking. Lisinopril 10 mg daily ordered. As needed hydralazine ordered. Trend blood pressure and adjust blood pressure medications. Tobacco abuse Counseled Nicotine patch ordered. DVT prophylaxis: SCD ordered. Charges/Coding Visit Charges Inpatient E&M: 64044 Init Hosp L3
[2021-09-15] VITALS (11 sets, daily range): BP systolic 110–180; BP diastolic 75–101; PULSE 57–76; RESP 16–18; TEMP 36.2–36.9; O2SAT 95–100; BMI 24.0
--- NOTE | 2021-09-15 00:04 | ED.RN ---
Inuslin not given as patient reports he had taken it at home, just [employer]CREEN [employer], and his glucose has dropped form the self-admin, has dropped from 600 to 400s to 200s and now 190s. Dr Powers says he can eat a sandwich so he is eating that and aware nothing to eat or drink after that. Dr Townsend is aware holding insulin at this time. Patient confirms he would hold for this at home on his SSI also because he tends to drop quickly and easily.
[2021-09-15 00:06] LABS: Bedside Glucose 193 mg/dL (70-110)
[2021-09-15] MEDS: 0.9% Normal Saline 1,000 ML 75 ML IV ×2 (02:17→17:53)
[2021-09-15 02:46] LABS: Bedside Glucose 159 mg/dL (70-110)
[2021-09-15] MEDS: Morphine 2 MG/ML Syringe IV ×5 (02:51→23:13)
[2021-09-15] MEDS: 0.9% Saline Lock 10 ML Syringe IV ×3 (02:53→23:13)
--- NOTE | 2021-09-15 04:27 | EKG12_ITS ---
Test Reason : PRE OP Blood Pressure : / mmHG Vent. Rate : 070 BPM Atrial Rate : 070 BPM P-R Int : 152 ms QRS Dur : 094 ms QT Int : 416 ms P-R-T Axes : 060 -05 021 degrees QTc Int : 449 ms Normal sinus rhythm Septal infarct , age undetermined Abnormal ECG When compared with ECG of 15-AUG-2020 08:50, No significant change was found Confirmed by ALIS GUY, CHADWICK ([id number]), book or script editor BILL MURRAY ([id number]) on 09/17/2021 11:21:46 AM Referred By: BALDOMERO Confirmed By:CHADWICK SNELL MD
[2021-09-15] MEDS: Gabapentin 300 MG Capsule PO ×3 (05:51→21:06)
[2021-09-15 06:06] LABS: Bedside Glucose 94 mg/dL (70-110)
[2021-09-15 06:21] LABS: Absolute Lymphocyte Count 2.68 X10^3/uL (0.83-4.51); Absolute Neutrophil Count 6.1 X10^3/uL (2.0-7.7); Basophil# 0.09 X10^3/uL; Basophil% 0.9 % (0-1); Eosinophil# 0.41 X10^3/uL; Hematocrit 40.8 % (40-54); Hemoglobin 13.6 g/dL (13.0-16.5); Lymphocyte # 2.68 X10^3/ul (0.83-4.51); Lymphocyte % 26.4 % (19-41); Mean Corp Hgb Conc 33.3 g/dL (32-36); Mean Corpuscular Hgb 28.5 pg (27.0-32.0); Mean Corpuscular Volume 85.5 fL (80-94); Mean Platelet Vol. 11.6 fl (6.2-12.0); Monocyte% 7.9 % (0-10); NRBC Flagged by Analyzer 0 % (0-5); Neutrophil # 6.14 X10^3/uL (2.7-7.7); Neutrophil % 60.3 % (47-70); Platelet Count 183 K/mm3 (150-450); RBC Distribution Width CV 14.6 % (11.6-14.6); RBC Distribution Width SD 45.7 fl (35.1-43.9); Red Blood Count 4.77 M/mm3 (4.6-6.2); White Blood Count 10.2 K/mm3 (4.4-11.0)
[2021-09-15 06:55] LABS: Anion Gap 3 (5-15); BUN 19 mg/dL (7-18); BUN/Creat Ratio 37.8 RATIO (10-20); Calcium,Total 8.8 mg/dL (8.5-10.1); Chloride 107 mmol/L (98-107); EST Glomerular Filtration Rate 188 mL/min (>60); Est Glom Filt Rate - Afr Amer 227 mL/min (>60); Estimated Creatinine Clearance 182.64 ml/min; Glucose 98 mg/dL (74-106); Sodium Level 137 mmol/L (136-145)
[2021-09-15 06:58] LABS: AST(SGOT) 10 U/L (15-37); Alanine Aminotransfer ALT/SGPT 10 U/L (16-61); Albumin, Serum 2.7 g/dL (3.2-5.0); Alkaline Phosphatase 73 U/L (45-117); Globulin 3.3 g/dL (2.2-4.2); Thyroid Stim Hormone (TSH) 2.26 uIU/mL (0.358-3.74)
[2021-09-15 07:10] LABS: Hemoglobin A1c 10.8 % (3.8-5.6)
--- NOTE | 2021-09-15 08:49 | CONS.ORTHO ---
HPI Consult Data Date of Consult: 09/15/21 HPI Narrative Reason for Consultation: Left AKA drainage, redness and pain. HPI Narrative: TORI CANTOR, is a 46 M who presents having had multiple surgeries, by multiple surgeons, on his left leg culminating in an AKA. He noticed yesterday that he had developed redness and drainage from his stump. He smokes 1 PPD and is an insulin dependent diabetic. He denies EtOH. [facility] Medical History (Updated 09/15/21 @ 08:[address] Shiv Garcia, DO) Alcohol abuse Anemia Anxiety Asthma Cellulitis (~09/15/21) Charcot ankle Charcot foot due to diabetes mellitus Chest pain Chronic pain Depression Diabetes Diabetes mellitus Gastroparesis GERD (gastroesophageal reflux disease) Hearing loss, left Hearing loss, right Hepatitis History of left below knee amputation Hypertension Hypothyroidism Migraines Neuropathy Osteoporosis Pancreatitis Rheumatoid arthritis Seizures Smoker Substance abuse Vision loss of left eye Vision loss of right eye Home Medications lisinopril 10 mg PO DAILY 10/04/19 [History Last Taken 09/14/21 13:00] insulin lispro See Protocol SUBCUT TID 01/25/20 [History Last Taken 3 Days Ago ~08/10/20] gabapentin 300 mg PO TID 08/13/20 [History Last Taken 09/14/21 13:00] insulin glargine 30 unit SQ QHS 08/13/20 [History Last Taken 09/14/21 20:30] pantoprazole 40 mg PO DAILY 08/13/20 [History Last Taken 09/14/21 13:00] ferrous sulfate [FeroSul] 325 mg PO DAILY 09/15/21 [History Last Taken 09/14/21 13:00] levothyroxine 25 mcg PO DAILY 09/15/21 [History Last Taken 09/14/21 13:00] Allergy/AdvReac Type Severity Reaction Status Date / Time No Known Allergies Allergy Verified 09/14/21 21:45 Family History Other Cancer Diabetes Heart disease Surgical History H/O tooth extraction S/P BKA (below knee amputation) Social History Smoking Status: Heavy Smoker (>10/day) Vital Signs Vital Signs Vital Signs: 09/14/21 21:41 09/14/21 21:45 09/15/21 00:05 Temperature 97.2 F L 97.2 F L 97.2 F L Temperature Source Temporal Temporal Temporal Pulse Rate 94 94 74 Respiratory Rate 18 18 Blood Pressure 171/98 H 171/98 H 127/75 H Blood Pressure Mean 122 122 92 Blood Pressure Source Blood Pressure Position Blood Pressure Location Pulse Ox 98 98 98 Oxygen Delivery Method Room Air Room Air Room Air 09/15/21 00:08 09/15/21 01:00 09/15/21 04:58 Temperature 97.5 F L 98 F 97.8 F Temperature Source Temporal Oral Oral Pulse Rate 74 71 64 Respiratory Rate 16 16 16 Blood Pressure 127/78 H 122/87 H 110/76 Blood Pressure Mean 94 98 87 Blood Pressure Source Monitor Monitor Blood Pressure Position Semi-Fowlers Supine Blood Pressure Location Right Arm Right Arm Pulse Ox 98 100 96 Oxygen Delivery Method Room Air Room Air Room Air 09/15/21 08:32 Temperature Temperature Source Pulse Rate Respiratory Rate Blood Pressure Blood Pressure Mean Blood Pressure Source Blood Pressure Position Blood Pressure Location Pulse Ox 95 Oxygen Delivery Method Room Air Weight Weight: 162 lb 11.218 oz Body Mass Index (BMI) 24.0 Physical Exam Const alert, oriented x3 and no apparent distress General Appearance: cooperative HEENT head/scalp atraumatic Eyes PERRL Extremity Extremity Narrative: LLE show redness and swelling of his AKA residua, but no active drainage. He has minimal PTP. Neuro moves all extremities Psych mental status grossly normal Lab / Micro Data Result Diagrams: 09/15/21 05:50 09/15/21 05:50 Labs: Laboratory Results - last 24 hr 09/14/21 21:55: WBC 12.3 H, RBC 5.57, Hgb 16.8 H, Hct 48.6, MCV 87.3, MCH 30.2, MCHC 34.6, RDW Std Deviation 46.5 H, RDW Coeff of Candace 14.5, Plt Count 211, MPV 11.3, Immature Gran % (Auto) 0.200, Neut % (Auto) 74.8 H, Lymph % (Auto) 15.5 L, [place] % (Auto) 6.1, Eos % (Auto) 2.7, Baso % (Auto) 0.7, Absolute Neuts (auto) 9.2 H, Absolute Lymphs (auto) 1.90, Nucleated RBC % 0, ESR 33 H 09/14/21 21:55: Sodium 134 L, Potassium 4.4, Chloride 99, Carbon Dioxide 30.0, Anion Gap 5, BUN 17, Creatinine 0.95, Estim Creat Clear Calc 96.13, Est GFR (MDRD) Af Amer 109, Est GFR (MDRD) Non-Af 90, BUN/Creatinine Ratio 17.8, Glucose 376 H, Calcium 9.3, Total Bilirubin 0.20, AST 11 L, ALT 13 L, Alkaline Phosphatase 87, C-React Prot Ext Range 5.31 H, Total Protein 7.3, Albumin 3.4, Globulin 3.9, Albumin/Globulin Ratio 0.9 09/14/21 22:35: POC Glucose 285 H 09/15/21 00:01: POC Glucose 193 H 09/15/21 02:37: POC Glucose 159 H 09/15/21 05:50: WBC 10.2, RBC 4.77, Hgb 13.6, Hct 40.8, MCV 85.5, MCH 28.5, MCHC 33.3, RDW Std Deviation 45.7 H, RDW Coeff of Candace 14.6, Plt Count 183, MPV 11.6, Immature Gran % (Auto) 0.500, Neut % (Auto) 60.3, Lymph % (Auto) 26.4, [place] % (Auto) 7.9, Eos % (Auto) 4.0, Baso % (Auto) 0.9, Absolute Neuts (auto) 6.1, Absolute Lymphs (auto) 2.68, Nucleated RBC % 0 09/15/21 05:50: Sodium 137, Potassium 4.0, Chloride 107, Carbon Dioxide 27.0, Anion Gap 3 L, BUN 19 H, Creatinine 0.50 L, Estim Creat Clear Calc 182.64, Est GFR (MDRD) Af Amer 227, Est GFR (MDRD) Non-Af 188, BUN/Creatinine Ratio 37.8 H, Glucose 98, Calcium 8.8 09/15/21 05:50: Total Bilirubin 0.30, Direct Bilirubin 0.10, AST 10 L, ALT 10 L, Alkaline Phosphatase 73, Total Protein 6.0 L, Albumin 2.7 L, Globulin 3.3, TSH 2.26 09/15/21 05:50: Hemoglobin A1c 10.8 H 09/15/21 05:58: POC Glucose 94 Radiology Impression Tibia/Fibula X-Ray 09/14/21 22:10 IMPRESSION: Increased nonspecific soft tissue swelling below-knee amputation stump. No destructive bony process. Electronically Signed: Shen Brito MD (Brooks) at 22:57 EST , Assessment & Plan Assessment/Plan (1) Cellulitis: QUALIFIERS: Site of cellulitis: extremity Site of cellulitis of extremity: lower extremity Laterality: left Qualified Code(s): L03.116 - Cellulitis of left lower limb PLAN: Case discussed with Dr. Reza. I recommended an MRI of the left leg to r/o osteomyelitis and an ID consult. I will discuss this case with my partner to determine if further surgical care is warranted for this patient. (2) Hypertension: QUALIFIERS: Hypertension type: essential hypertension Qualified Code(s): I10 - Essential (primary) hypertension (3) DM type 1 (diabetes mellitus, type 1): QUALIFIERS: Diabetes mellitus complication status: with other specified complication Qualified Code(s): E10.69 - Type 1 diabetes mellitus with other specified complication (4) PAD (peripheral artery disease):
--- NOTE | 2021-09-15 10:08 | PN.HOSP_ITS ---
Documented by User: Julianna Palacios NP, HUMAN RESOURCES SERVICES SPECIALIST-C 09/15/21 10:30 Subjective Subjective Patient seen and examined. Denies fever, chills. Reports mild left stump discomfort. Denies other symptoms or complaints. Objective Data Objective Data Vital Signs: Vital Signs Temp Pulse Resp BP Pulse Ox 97.8 F 64 16 110/76 95 09/15/21 04:58 09/15/21 04:58 09/15/21 04:58 09/15/21 04:58 09/15/21 08:32 Oxygen Delivery Method Room Air Weight: 162 lb 11.218 oz Body Mass Index (BMI) 24.0 Intake & Output: Intake and Output for Last 24 Hours 09/13/21 09/14/21 09/15/21 23:59 23:59 23:59 Intake Total 54 54 432.75 / 432.75 Balance 54 54 432.75 / 432.75 Lab / Micro Data Result Diagrams: 09/15/21 05:50 09/15/21 05:50 Labs: Laboratory Results - last 24 hr 09/14/21 21:55: WBC 12.3 H, RBC 5.57, Hgb 16.8 H, Hct 48.6, MCV 87.3, MCH 30.2, MCHC 34.6, RDW Std Deviation 46.5 H, RDW Coeff of Candace 14.5, Plt Count 211, MPV 11.3, Immature Gran % (Auto) 0.200, Neut % (Auto) 74.8 H, Lymph % (Auto) 15.5 L, [place] % (Auto) 6.1, Eos % (Auto) 2.7, Baso % (Auto) 0.7, Absolute Neuts (auto) 9.2 H, Absolute Lymphs (auto) 1.90, Nucleated RBC % 0, ESR 33 H 09/14/21 21:55: Sodium 134 L, Potassium 4.4, Chloride 99, Carbon Dioxide 30.0, Anion Gap 5, BUN 17, Creatinine 0.95, Estim Creat Clear Calc 96.13, Est GFR (MDRD) Af Amer 109, Est GFR (MDRD) Non-Af 90, BUN/Creatinine Ratio 17.8, Glucose 376 H, Calcium 9.3, Total Bilirubin 0.20, AST 11 L, ALT 13 L, Alkaline Phosphatase 87, C-React Prot Ext Range 5.31 H, Total Protein 7.3, Albumin 3.4, Globulin 3.9, Albumin/Globulin Ratio 0.9 09/14/21 22:35: POC Glucose 285 H 09/15/21 00:01: POC Glucose 193 H 09/15/21 02:37: POC Glucose 159 H 09/15/21 05:50: WBC 10.2, RBC 4.77, Hgb 13.6, Hct 40.8, MCV 85.5, MCH 28.5, MCHC 33.3, RDW Std Deviation 45.7 H, RDW Coeff of Candace 14.6, Plt Count 183, MPV 11.6, Immature Gran % (Auto) 0.500, Neut % (Auto) 60.3, Lymph % (Auto) 26.4, [place] % (Auto) 7.9, Eos % (Auto) 4.0, Baso % (Auto) 0.9, Absolute Neuts (auto) 6.1, Absolute Lymphs (auto) 2.68, Nucleated RBC % 0 09/15/21 05:50: Sodium 137, Potassium 4.0, Chloride 107, Carbon Dioxide 27.0, Anion Gap 3 L, BUN 19 H, Creatinine 0.50 L, Estim Creat Clear Calc 182.64, Est GFR (MDRD) Af Amer 227, Est GFR (MDRD) Non-Af 188, BUN/Creatinine Ratio 37.8 H, Glucose 98, Calcium 8.8 09/15/21 05:50: Total Bilirubin 0.30, Direct Bilirubin 0.10, AST 10 L, ALT 10 L, Alkaline Phosphatase 73, Total Protein 6.0 L, Albumin 2.7 L, Globulin 3.3, TSH 2.26 09/15/21 05:50: Hemoglobin A1c 10.8 H 09/15/21 05:58: POC Glucose 94 Radiography Diagnostic Testing: Radiology Impression Tibia/Fibula X-Ray 09/14/21 22:10 IMPRESSION: Increased nonspecific soft tissue swelling below-knee amputation stump. No destructive bony process. Electronically Signed: Shen Brito MD (Brooks) at 22:57 EST Reading Location ID and State: [facility] / [place] , Service support , Physical Exam Const alert, oriented x3 and no apparent distress Orientation / Consciousness: awake, oriented to person, oriented to place and oriented to time HEENT normocephalic and moist oral mucous membranes Eyes PERRL, EOMs intact bilaterally and conjunctivae normal Neck no lymphadenopathy Resp normal respiratory effort and clear to auscultation bilaterally Cardio regular rate, regular rhythm and no murmurs Peripheral Pulses: pulses 2+ throughout GI normal to inspection, nondistended, normoactive bowel sounds, non-tender and non-distended Extremity normal to inspection Extremity Narrative: Left below the knee amputation. Skin no rashes or lesions noted Skin Narrative: Left stump redness with foul-smelling drainage. Lesions: no lesions Rashes: no rashes Trauma: no lacerations or abrasions Neuro CN's II-XII intact bilaterally, no focal motor deficits, no sensory deficits noted and deep tendon reflexes 2+ bilaterally Psych mental status grossly normal and affect normal Assessment & Plan Assessment/Plan (1) Cellulitis: QUALIFIERS: Laterality: left Site of cellulitis: extremity Site of cellulitis of extremity: lower extremity Qualified Code(s): L03.116 - Cellulitis of left lower limb PLAN: 1. Left below the knee stump cellulitis-orthopedic and ID consulted. MRI pending to rule out osteomyelitis. IV clindamycin and IV cefepime pending cultures. Prior cultures grew MRSA. 2. Uncontrolled type 1 diabetes-continue home insulin regimen. Accu-Cheks with sliding scale insulin. Hemoglobin A1c 10.8%. Recommend referral to endocrinology at discharge. 3. Right Charcot foot/history of left below the knee amputation/neuropathy secondary to type 1 diabetes 4. Hypertension-improved from prior. Continue lisinopril 10 mg daily. 5. Hypothyroidism- continue Synthroid regimen. 6. GERD-continue PPI. 7. Tobacco dependence-encouraged cessation. DVT prophylaxis- SCDs, Lovenox sc This patient was seen by ANDREW Man under the supervision of Dr. Reza. Time spent examining patient, reviewing data and subsequent management of care: 12 Minutes Documented by User: Dr. Shen Reza MD 09/15/21 12:00 Subjective Subjective Follow-up for acute on recurrent left BKA stump infection. Patient has purulent drainage from left BKA stump at one point. Pain and tenderness present. Patient had fever at home. Objective Data Lab / Micro Data Result Diagrams: 09/15/21 05:50 09/15/21 05:50 Physical Exam Narrative General: Alert, Oriented x3, Cooperative HEENT: Atraumatic, PERRLA, EOMI, Normocephalic Oral: No Gingival or Mucosal Lesions/ Ulcerations Neck: Supple, No JVD, Negative Carotid Bruits Lungs: Air entry diminished in bilateral lung bases. No crepitation/rhonchi Cardiovascular: Regular rate, Regular Rhythm, Normal S1, Normal S2, No murmurs Abdomen: Bowel Sounds Present, Soft, Non Tender, Non-Distended : No renal angle tenderness. No suprapubic tenderness. Extremities: No edema, Capillary Refill Less than 3 Seconds Skin: Purulent drainage from sinus at left BKA stump at the distal end. Musculoskeletal: ROM restricted at left BKA stump. Mild swelling, edema, induration tenderness present all around BKA stump. Mild to moderate muscle atrophy of right thigh and calf muscles Neurological: Cranial nerves II-XII grossly intact, DTR 2+/4 and Symmetrical Psych/Mental Status: Normal Affect, Appropriate. Assessment & Plan Assessment/Plan (1) Cellulitis: QUALIFIERS: Laterality: left Site of cellulitis: extremity Site of cellulitis of extremity: lower extremity Qualified Code(s): L03.116 - Cellulitis of left lower limb PLAN: This patient was seen in conjunction with HUMAN RESOURCES SERVICES SPECIALIST, Julianna. I have inde pendently interviewed and examined the patient and reviewed pertinent history, examination findings, laboratory and plan of management. I have reviewed the note and agree with the documented findings with the few additional points. In brief, patient is 46-year-old male with history of diabetic mellitus type 1 complicated with neuropathy, Charcot joint, left below-knee amputation and revision and multiple infections in the past admitted with purulent sinus drainage at distal point of left BKA stump. Tenderness, edema and induration present stable localized cellulitis. MRI ordered to rule out osteomyelitis. Evaluated by orthopedic surgeon Dr. Garcia and discussed with him. Recommended ID consult and MRI which is already ordered. Patient on IV clindamycin and cefepime for broad gram-negative, anaerobes and MRSA coverage. Previous cultures reviewed and positive for MRSA. During hospital course patient is afebrile. Diabetes mellitus type 1 Right Charcot foot complication of diabetic neuropathy possible vasculopathy. Other comorbidities include hypertension, hypothermia, GERD chronic nicotine/cigarette smoking: Smoking cessation advised VTE prophylaxis Lovenox SCDs. I have discussed my assessment with HUMAN RESOURCES SERVICES SPECIALISTJulianna and orders have been reviewed. Total time of the visit includes total time spent in counseling or coordination of care, (more than 50% of the total time, spent in obtaining medical information from nurses and other ancillary care providers,explaining to the patient about labs, imaging, diagnosis and management), discussion with sr. consultant, review of labs and imaging is 30 minutes; I spent 18 minutes, more than half time and HUMAN RESOURCES SERVICES SPECIALIST spent 12 minutes Charges/Coding Visit Charges Inpatient E&M: 23777 Subs Hosp L2
[2021-09-15] MEDS: Insulin Lispro 100 UNIT/ML INSULN.PEN SC ×2 (10:40→14:10)
[2021-09-15] MEDS: Lisinopril 10 MG Tablet PO (10:41)
[2021-09-15 14:21] LABS: Bedside Glucose 164 mg/dL (70-110)
[2021-09-15 14:21] LABS: Bedside Glucose 278 mg/dL (70-110)
[2021-09-15] MEDS: Glucerna Shake 120 ML LIQUID PO (18:03)
[2021-09-15 18:11] LABS: Bedside Glucose 101 mg/dL (70-110)
[2021-09-15] MEDS: hydrALAZINE 20 MG/ML Vial 10 MG IV (20:44)
[2021-09-15] MEDS: Ferrous Sulfate 325 MG Tablet PO (21:02)
[2021-09-15] MEDS: Pantoprazole Sodium 40 MG Tablet PO (21:03)
[2021-09-15] MEDS: Levothyroxine 25 MCG TABLET PO (21:03)
[2021-09-15 21:06] LABS: Bedside Glucose 222 mg/dL (70-110)
[2021-09-16 02:45] VITALS: BP 130/92; PULSE 72; RESP 16; TEMP 36.9; O2SAT 100
[2021-09-16 02:56] LABS: Bedside Glucose 161 mg/dL (70-110)
[2021-09-16] MEDS: Levothyroxine 25 MCG TABLET PO (05:12)
[2021-09-16] MEDS: 0.9% Saline Lock 10 ML Syringe IV ×3 (05:12→13:53)
[2021-09-16] MEDS: Gabapentin 300 MG Capsule PO ×3 (05:12→22:53)
[2021-09-16] MEDS: Enoxaparin 40 MG/0.4 ML Syringe SC (05:13)
[2021-09-16 05:26] LABS: Bedside Glucose 72 mg/dL (70-110)
[2021-09-16 05:55] LABS: Absolute Lymphocyte Count 2.98 X10^3/uL (0.83-4.51); Absolute Neutrophil Count 5.8 X10^3/uL (2.0-7.7); Basophil% 0.9 % (0-1); Eosinophil# 0.64 X10^3/uL; Eosinophils% 6.1 % (0-5); Hematocrit 45.4 % (40-54); Hemoglobin 15.4 g/dL (13.0-16.5); Lymphocyte # 2.98 X10^3/ul (0.83-4.51); Lymphocyte % 28.3 % (19-41); Mean Corp Hgb Conc 33.9 g/dL (32-36); Mean Corpuscular Hgb 29.3 pg (27.0-32.0); Mean Corpuscular Volume 86.5 fL (80-94); Mean Platelet Vol. 11.5 fl (6.2-12.0); Monocyte# 1.01 X10^3/uL; Monocyte% 9.6 % (0-10); NRBC Flagged by Analyzer 0 % (0-5); Neutrophil # 5.77 X10^3/uL (2.7-7.7); Neutrophil % 54.7 % (47-70); Platelet Count 220 K/mm3 (150-450); RBC Distribution Width CV 14.4 % (11.6-14.6); RBC Distribution Width SD 46.1 fl (35.1-43.9); Red Blood Count 5.25 M/mm3 (4.6-6.2); White Blood Count 10.5 K/mm3 (4.4-11.0)
--- NOTE | 2021-09-16 05:55 | MRI_ITS ---
PROCEDURE: MRI LOWER EXTREMITY LEFT TIBIA/FIBULA REASON FOR EXAM: Male, 46 years old. left leg BKA stump infection with pus drainage TECHNIQUE: Standardized fat and water weighted pulse sequences were obtained in all 3 orthogonal planes. COMPARISON: X-ray of the left tibia and fibula dated September 14, 2021 FINDINGS: [id number] amputation with the proximal one third tibia and fibula remaining. Mild subcutaneous and intramuscular edema is present in the anterior lateral side of the stump, but no abscess is seen. Postoperative susceptibility artifact in fibrosis is seen at the distal end of the stump. Mild edema is present at the most distal tip of the tibial stump with minimal cortical thinning, consistent with mild osteomyelitis, favored to be subacute to chronic in nature given no significant edema or fluid collections are seen in the soft tissues immediately surrounding this region. The remaining aspects of the tibial fragment are within normal limits. Normal fibula, without a periosteal, cortical or cancellous marrow abnormality. Mild fatty atrophy is seen in the posterior stump muscle fibers. MRI/Lower Ext/No Jt/w/o IMPRESSION: 1. Mild edema is present at the most distal tip of the tibial stump with minimal cortical thinning, consistent with mild osteomyelitis, favored to be subacute to chronic in nature given no significant edema or fluid collections are seen in the soft tissues immediately surrounding this region. 2. Cellulitis/myositis of the soft tissues at the anterior lateral aspect of the amputation stump Electronically Signed: Watson Hurley MD at 11:59 EST ,
[2021-09-16 06:17] LABS: Anion Gap 3 (5-15); BUN 10 mg/dL (7-18); BUN/Creat Ratio 24.2 RATIO (10-20); Calcium,Total 8.9 mg/dL (8.5-10.1); Chloride 108 mmol/L (98-107); Creatinine, Serum 0.41 mg/dL (0.70-1.30); EST Glomerular Filtration Rate 236 mL/min (>60); Est Glom Filt Rate - Afr Amer 285 mL/min (>60); Estimated Creatinine Clearance 222.73 ml/min; Glucose 53 mg/dL (74-106); Potassium 4.1 mmol/L (3.5-5.1); Sodium Level 138 mmol/L (136-145)
--- NOTE | 2021-09-16 07:41 | PN.ORTHO_ITS ---
Subjective Subjective Patient seen and examined requested by my partner . This is a 46-year-old male who presented to [facility] emergency department with erythema, drainage of a left BKA stump. Patient originally had a BKA performed for infection in 2019 and revised in June 2020. Patient does have a prosthesis but is been unable to ambulate recently due to a Charcot foot on the right. He was scheduled to cloth picker a orthotic for his right foot this week at [facility], which he expresses is disheartening. He denies any fevers, chills, nausea or vomiting, chest pain or shortness of breath at this point. He states the erythema is improved since he was admitted and administered IV antibiotics. Drainage has continued. He reports some pain radiating up into the left knee. He also states the swelling is much improved over the last 48 hours. Objective Data Objective Data Vital Signs: Vital Signs Temp Pulse Resp BP Pulse Ox 98.4 F 72 16 130/92 H 100 09/16/21 02:45 09/16/21 02:45 09/16/21 02:45 09/16/21 02:45 09/16/21 02:45 Oxygen Delivery Method Room Air Weight: 162 lb 11.218 oz Body Mass Index (BMI) 24.0 Intake & Output: Intake and Output for Last 24 Hours 09/14/21 09/15/21 09/16/21 23:59 23:59 23:59 Intake Total 54 / 54 3284.75 / 3284.75 154 / 154 Output Total 1900 / 1900 Balance 54 / 54 1384.75 / 1384.75 154 / 154 Lab / Micro Data Result Diagrams: 09/16/21 05:09 09/16/21 05:09 Labs: Laboratory Results - last 24 hr 09/15/21 10:38: POC Glucose 164 H 09/15/21 14:07: POC Glucose 278 H 09/15/21 18:02: POC Glucose 101 09/15/21 20:57: POC Glucose 222 H 09/16/21 02:38: POC Glucose 161 H 09/16/21 05:09: WBC 10.5, RBC 5.25, Hgb 15.4, Hct 45.4, MCV 86.5, MCH 29.3, MCHC 33.9, RDW Std Deviation 46.1 H, RDW Coeff of Candace 14.4, Plt Count 220, MPV 11.5, Immature Gran % (Auto) 0.400, Neut % (Auto) 54.7, Lymph % (Auto) 28.3, [place] % (Auto) 9.6, Eos % (Auto) 6.1 H, Baso % (Auto) 0.9, Absolute Neuts (auto) 5.8, Absolute Lymphs (auto) 2.98, Nucleated RBC % 0 09/16/21 05:09: Sodium 138, Potassium 4.1, Chloride 108 H, Carbon Dioxide 27.0, Anion Gap 3 L, BUN 10, Creatinine 0.41 L, Estim Creat Clear Calc 222.73, Est GFR (MDRD) Af Amer 285, Est GFR (MDRD) Non-Af 236, BUN/Creatinine Ratio 24.2 H, Glucose 53 L, Calcium 8.9 09/16/21 05:18: POC Glucose 72 Physical Exam Narrative General -A&Ox3, NAD, appears stated age. Vital signs stable, afebrile. Respiratory -normal work of breathing, no intercostal retractions. CV -pulses regular, brisk capillary refill ?4 limbs. Abdomen-soft, nontender, nondistended. No guarding, rigidity, rebound tenderness. Musculoskeletal/neurologic -full range of motion nontender throughout bilateral upper extremities, right lower extremity with fullstrength in all myotomes. No midline cervical tenderness. Left lower extremity-BKA is noted with 5 mm x 5 mm circular wound along the distal lateral stump edge with expressible purulent drainage. No fluctuance is appreciated or induration. Nontender about the knee. There is no knee effusion. Erythema is minimal. Brisk capillary refill in the stump skin edges. Sensation intact. No pain with passive flexion and extension of the knee. Assessment & Plan Assessment/Plan (1) Cellulitis: QUALIFIERS: Site of cellulitis: extremity Site of cellulitis of extremity: lower extremity Laterality: left Qualified Code(s): L03.116 - Cellulitis of left lower limb PLAN: Left BKA stump infection -Agree with MRI left knee/stump to rule out osteomyelitis and extent of soft tissue infection. Agree with continued IV antibiotics. Patient appears to be responding favorably. Surgical recommendations pending MRI.
[2021-09-16 07:53] VITALS: BP 154/97; PULSE 86; RESP 18; TEMP 37; O2SAT 99
[2021-09-16] MEDS: Lisinopril 10 MG Tablet PO (08:03)
[2021-09-16] MEDS: Ferrous Sulfate 325 MG Tablet PO (08:03)
[2021-09-16] MEDS: Pantoprazole Sodium 40 MG Tablet PO (08:03)
[2021-09-16] MEDS: Acetaminophen 325 MG Tablet 650 MG PO ×3 (08:04→23:03)
[2021-09-16] MEDS: Morphine 2 MG/ML Syringe IV (08:04)
--- NOTE | 2021-09-16 11:10 | CASEMGMT ---
RN CM Face to Face with patient for initial transition planning/care coordination assessment. RN CM introduced self and role at [facility]. Patient lying in bed, alert and oriented. Patient willing to participate in assessment and is able to answer all questions appropriately. Care providers, pharmacy, and demographics verified. Patient wishes to discharge home, denies need for home health at this time. Patient states he has no further needs or concerns at this time. CM to follow for discharge planning needs that may arise. PCP: Radha Specialists: none Preferred Pharmacy: [facility] retail at discharge. Insurance: Constanza Thomas Prescription Benefit: yes Living Will/HPOA: none LNOK: son, brother Living Arrangements: Patient states he lives alone in a first floor apartment with no steps to enter. Patient states he is independent for self-care and has aide for household assistance Transportation: Aide, [employer] DME/HHC: Patient states he has shower chair, raised toilet, grab bars, walker, and wheelchair at home. Patient has had [facility] in the past. Terence states he has aide through [employer] [facility] 15hrs per week MWF. Patient's CM at [facility] is BASILIO Bailey. Will monitor for HHC pending wound care and progress with therapy Disposition Plan: Patient to discharge home with family support and follow-up plans in place. Will monitor for HHC pending course of treatment. Naomi DALLAS, RN, CM
[2021-09-16] MEDS: Insulin Lispro 100 UNIT/ML INSULN.PEN SC ×2 (11:47→16:38)
--- NOTE | 2021-09-16 11:49 | PCM.CONS.GEN ---
Assessment & Plan Assessment/Plan (1) MRSA (methicillin resistant staph aureus) culture positive: PLAN: L stump MRSA wound infection - MRI pending, possible osteo. Will treat with vanc/cefepime, stop clinda. Ortho following. Covid vaccine x3. Will follow, thank you (2) DM type 1 (diabetes mellitus, type 1): QUALIFIERS: Diabetes mellitus complication status: with other specified complication Qualified Code(s): E10.69 - Type 1 diabetes mellitus with other specified complication (3) PAD (peripheral artery disease): HPI Consult Data Date of Consult: 09/16/21 HPI Narrative HPI Narrative: ORLANDO CANTOR, is a 46 M with L BKA, complicated by osteo requiring further resection and iv abx course, presented with 2-3 weeks of URI and fever/chills. URI resolved, but still some chills and noticed several days increased redness and induration in L stump. No inciting event. Wound opened and had heavy purulent drainage. Came to ED, admitted on clinda/cefepime, seen by ortho, cxs sent, MRI done this Am. Feeling ok. No n/v/d. Full ROS performed and neg except as noted above. [facility] Medical History Alcohol abuse Anemia Anxiety Asthma Cellulitis (~09/15/21) Charcot ankle Charcot foot due to diabetes mellitus Chest pain Chronic pain Depression Diabetes Diabetes mellitus Gastroparesis GERD (gastroesophageal reflux disease) Hearing loss, left Hearing loss, right Hepatitis History of left below knee amputation Hypertension Hypothyroidism Migraines Neuropathy Osteoporosis Pancreatitis Rheumatoid arthritis Seizures Smoker Substance abuse Vision loss of left eye Vision loss of right eye Home Medications lisinopril 10 mg PO DAILY 10/04/19 [History Last Taken 09/14/21 13:00] insulin lispro See Protocol SUBCUT TID 01/25/20 [History Last Taken 3 Days Ago ~08/10/20] gabapentin 300 mg PO TID 08/13/20 [History Last Taken 09/14/21 13:00] insulin glargine 30 unit SQ QHS 08/13/20 [History Last Taken 09/14/21 20:30] pantoprazole 40 mg PO DAILY 08/13/20 [History Last Taken 09/14/21 13:00] ferrous sulfate [FeroSul] 325 mg PO DAILY 09/15/21 [History Last Taken 09/14/21 13:00] levothyroxine 25 mcg PO DAILY 09/15/21 [History Last Taken 09/14/21 13:00] Allergy/AdvReac Type Severity Reaction Status Date / Time No Known Allergies Allergy Verified 09/14/21 21:45 Family History Other Cancer Diabetes Heart disease Surgical History H/O tooth extraction S/P BKA (below knee amputation) Social History Smoking Status: Heavy Smoker (>10/day) Physical Exam Const alert, oriented x3 and no apparent distress General Appearance: cooperative Exam Limitations: no limitations HEENT normocephalic and head/scalp atraumatic Eyes PERRL and EOMs intact bilaterally Neck supple and No nodes Resp normal air movement and clear to auscultation bilaterally Cardio regular rate and regular rhythm GI soft to palpation, non-tender and non-distended Extremity no clubbing, cyanosis or edema Skin Skin Narrative: L BKA stump with some redness/induration/open wound Neuro CN's II-XII intact bilaterally Lab / Micro Data Result Diagrams: 09/16/21 05:09 09/16/21 05:09 Labs: Laboratory Results - last 24 hr 09/15/21 10:38: POC Glucose 164 H 09/15/21 14:07: POC Glucose 278 H 09/15/21 18:02: POC Glucose 101 09/15/21 20:57: POC Glucose 222 H 09/16/21 02:38: POC Glucose 161 H 09/16/21 05:09: WBC 10.5, RBC 5.25, Hgb 15.4, Hct 45.4, MCV 86.5, MCH 29.3, MCHC 33.9, RDW Std Deviation 46.1 H, RDW Coeff of Candace 14.4, Plt Count 220, MPV 11.5, Immature Gran % (Auto) 0.400, Neut % (Auto) 54.7, Lymph % (Auto) 28.3, [place] % (Auto) 9.6, Eos % (Auto) 6.1 H, Baso % (Auto) 0.9, Absolute Neuts (auto) 5.8, Absolute Lymphs (auto) 2.98, Nucleated RBC % 0 09/16/21 05:09: Sodium 138, Potassium 4.1, Chloride 108 H, Carbon Dioxide 27.0, Anion Gap 3 L, BUN 10, Creatinine 0.41 L, Estim Creat Clear Calc 222.73, Est GFR (MDRD) Af Amer 285, Est GFR (MDRD) Non-Af 236, BUN/Creatinine Ratio 24.2 H, Glucose 53 L, Calcium 8.9 09/16/21 05:18: POC Glucose 72 Micro: Microbiology 09/15/21 12:30 Wound - Knee Wound Culture - Preliminary Staphylococcus aureus
[2021-09-16 11:55] LABS: Bedside Glucose 203 mg/dL (70-110)
--- NOTE | 2021-09-16 12:30 | PCM.RX.CS ---
Consult Pharmacy has been consulted to manage selected antiobiotic: Vancomycin Type of Consult: New start Labs: Sodium 138 mmol/L (136-145) 09/16/21 05:09 Potassium 4.1 mmol/L (3.5-5.1) 09/16/21 05:09 Chloride 108 mmol/L (98-107) H 09/16/21 05:09 Carbon Dioxide 27.0 mmol/L (21.0-32.0) 09/16/21 05:09 Anion Gap 3 (5-15) L 09/16/21 05:09 BUN 10 mg/dL (7-18) 09/16/21 05:09 Creatinine 0.41 mg/dL (0.70-1.30) L 09/16/21 05:09 Est GFR (MDRD) Af Amer 285 mL/min (>60) 09/16/21 05:09 Est GFR (MDRD) Non-Af 236 mL/min (>60) 09/16/21 05:09 BUN/Creatinine Ratio 24.2 RATIO (10-20) H 09/16/21 05:09 Glucose 53 mg/dL (74-106) L 09/16/21 05:09 Microbiology: Microbiology 09/15/21 12:30 Wound - Knee Wound Culture - Preliminary Staphylococcus aureus Goal Trough: 15-20 mcg/mL Pharmacy Plan for Drug Dosing: NEW START IV VANCOMYCIN Consulting Physician: Dr. Stover Indication: Goal Trough: 15-20 SrCr: 0.41 CrCl: >100mls/min Comments: pt to receive a 25mg/kg (1750mg) loading dose 09/16/21 at 1230 Vancomcyin Dose: based on pts weight and renal function recommend an initial dose of 1000mg q8h starting 8 hours after the loading dose. trough to be drawn before the 4th total dose. Pending Level: 09/17/21 at 1200 Pharmacy Service will continue to monitor and adjust dosing as required. Follow-Up Labs: Trough Vancomycin - 09/17/21 at 1200
[2021-09-16] MEDS: oxyCODONE 5 MG Tablet PO ×3 (13:30→23:03)
[2021-09-16 13:31] VITALS: O2SAT 98
[2021-09-16 13:51] VITALS: BP 155/103; PULSE 87; RESP 18; TEMP 36.8; O2SAT 99
--- NOTE | 2021-09-16 14:41 | PN.HOSP_ITS ---
Documented by User: Julianna Palacios NP, SUPERINTENDENT MARINE-C 09/16/21 14:46 Subjective Subjective Patient seen and examined. Denies fever, chills. MRI with mild osteomyelitis at the distal tip of the tibial stump. Reports intermittent pain. Objective Data Objective Data Vital Signs: Vital Signs Temp Pulse Resp BP Pulse Ox 98.2 F 87 18 155/103 H 99 09/16/21 13:51 09/16/21 13:51 09/16/21 13:51 09/16/21 13:51 09/16/21 13:51 Oxygen Delivery Method Room Air Weight: 162 lb 11.218 oz Body Mass Index (BMI) 24.0 Intake & Output: Intake and Output for Last 24 Hours 09/14/21 09/15/21 09/16/21 23:59 23:59 23:59 Intake Total 54 / 54 3284.75 / 3284.75 195.25 / 195.25 Output Total 1900 / 1900 800 / 800 Balance 54 / 54 1384.75 / 1384.75 -604.75 / -604.75 Lab / Micro Data Result Diagrams: 09/16/21 05:09 09/16/21 05:09 Labs: Laboratory Results - last 24 hr 09/15/21 18:02: POC Glucose 101 09/15/21 20:57: POC Glucose 222 H 09/16/21 02:38: POC Glucose 161 H 09/16/21 05:09: WBC 10.5, RBC 5.25, Hgb 15.4, Hct 45.4, MCV 86.5, MCH 29.3, MCHC 33.9, RDW Std Deviation 46.1 H, RDW Coeff of Candace 14.4, Plt Count 220, MPV 11.5, Immature Gran % (Auto) 0.400, Neut % (Auto) 54.7, Lymph % (Auto) 28.3, [place] % (A uto) 9.6, Eos % (Auto) 6.1 H, Baso % (Auto) 0.9, Absolute Neuts (auto) 5.8, A bsolute Lymphs (auto) 2.98, Nucleated RBC % 0 09/16/21 05:09: Sodium 138, Potassium 4.1, Chloride 108 H, Carbon Dioxide 27.0, Anion Gap 3 L, BUN 10, Creatinine 0.41 L, Estim Creat Clear Calc 222.73, Est GFR (MDRD) Af Amer 285, Est GFR (MDRD) Non-Af 236, BUN/Creatinine Ratio 24.2 H, Glucose 53 L, Calcium 8.9 09/16/21 05:18: POC Glucose 72 09/16/21 11:44: POC Glucose 203 H Micro: Microbiology 09/15/21 12:30 Wound - Knee Gram Stain - Final 09/15/21 12:30 Wound - Knee Wound Culture - Preliminary Staphylococcus aureus Radiography Diagnostic Testing: Radiology Impression Lower Extremity MRI 09/16/21 05:55 IMPRESSION: 1. Mild edema is present at the most distal tip of the tibial stump with minimal cortical thinning, consistent with mild osteomyelitis, favored to be subacute to chronic in nature given no significant edema or fluid collections are seen in the soft tissues immediately surrounding this region. 2. Cellulitis/myositis of the soft tissues at the anterior lateral aspect of the amputation stump Electronically Signed: Watson Hurley MD at 11:59 EST Reading Location ID and State: [address] [place] [address] , Service support , Physical Exam Const alert, oriented x3 and no apparent distress Orientation / Consciousness: awake, oriented to person, oriented to place and oriented to time HEENT normocephalic and moist oral mucous membranes Eyes PERRL, EOMs intact bilaterally and conjunctivae normal Neck no lymphadenopathy Resp normal respiratory effort and clear to auscultation bilaterally Cardio regular rate, regular rhythm and no murmurs Peripheral Pulses: pulses 2+ throughout GI normal to inspection, nondistended, normoactive bowel sounds, non-tender and non-distended Extremity normal to inspection Extremity Narrative: Left below the knee amputation Skin no rashes or lesions noted Skin Narrative: Left stump redness with foul-smelling drainage. Lesions: no lesions Rashes: no rashes Trauma: no lacerations or abrasions Neuro CN's II-XII intact bilaterally, no focal motor deficits, no sensory deficits noted and deep tendon reflexes 2+ bilaterally Psych mental status grossly normal and affect normal Assessment & Plan Assessment/Plan (1) Cellulitis: QUALIFIERS: Laterality: left Site of cellulitis: extremity Site of cellulitis of extremity: lower extremity Qualified Code(s): L03.116 - Cellulitis of left lower limb PLAN: 1. Left below the knee stump cellulitis-orthopedic and ID consulted. MRI shows mild osteomyelitis. IV vanc and IV cefepime pending cultures. Prior cultures grew MRSA. Await orthopedic surgery recommendations. 2. Uncontrolled type 1 diabetes-continue home insulin regimen. Accu-Cheks with sliding scale insulin. Hemoglobin A1c 10.8%. Recommend referral to endocrinology at discharge. 3. Right Charcot foot/history of left below the knee amputation/neuropathy secondary to type 1 diabetes 4. Hypertension-improved from prior. Continue lisinopril 10 mg daily. 5. Hypothyroidism- continue Synthroid regimen. 6. GERD-continue PPI. 7. Tobacco dependence-encouraged cessation. DVT prophylaxis- SCDs, Lovenox sc This patient was seen by ANDREW Man under the supervision of Dr. Monroe. Time spent examining patient, reviewing data and subsequent management of care: 11 Minutes Documented by User: Dr. Alfonso Monroe, 09/16/21 18:55 Objective Data Lab / Micro Data Result Diagrams: 09/16/21 05:09 09/16/21 05:09 Charges/Coding Addendum Addendum: Patient was seen and examined independently of Julianna Palacios today, I talked with him at length, his MRI today showed evidence of osteomyelitis in his left stump, I talked with orthopedic surgery about this today and they will discuss this with the patient and determine if they should proceed with surgery versus just antibiotic treatment. Infectious diseases saw the patient today. Patient's blood sugars have not been under good control-his hemoglobin A1c on admission was 10.8, he does not currently have an ampoule washing machine operator, I told him that I strongly recommended that he get an ampoule washing machine operator-patient knows this and he has been seeing a visiting physician that comes to his home. I told him I did not feel this was a good idea to continue this practice and that he should have an ampoule washing machine operator and that his blood sugar is not under good control. Patient seemed to think that a 10.8 hemoglobin A1c was not a bad reading for him-I assured him that it was a bad reading. On examination he appeared in good health and spirits. Vital signs as documented. Skin warm and dry, there is redness over his left leg stump area, this area is also tender to palpation. Neck without JVD, neck was supple, trachea midline, thyroid was normal. Lungs clear bilaterally, normal air movement was noted. Heart exam notable for regular rhythm, normal sounds and absence of murmurs, rubs or gallops. Abdomen unremarkable and without evidence of organomegaly, masses, or abdominal aortic enlargement. Bowel sounds are present, abdomen is not distended. Extremities nonedematous, no cyanosis was noted, no clubbing was noted, there is a below the knee amputation noted on the left side, the patient's left leg stump appears reddened and mildly edematous. Neuro: Cranial nerves II through XII are grossly intact, no focal motor deficits were noted, sensation to light touch and pinprick intact, motor exam 5/5 throughout. Psych: Patient is alert and oriented x3, he does not appear anxious or depressed, he does not appear agitated. Impression #1 osteomyelitis of the left tibial stump-patient will remain on his present antibiotics per infectious diseases, orthopedic surgery is seeing the patient will discuss further care with him tomorrow #2 cellulitis of the left leg amputation stump-patient will remain on his current antibiotics at this time, he is growing staph out of the area-he has had a history of MRSA in the area before, sensitivities are pending on this patient #3 uncontrolled type 1 diabetes-patient will need close follow-up as an outpa tient with an ampoule washing machine operator, I encouraged the patient that he must get vigilant on caring for his type 1 diabetes. Blood sugars will be monitored, sliding scale insulin is being used to control his blood sugar #4 essential hypertension-patient will remain on his present medications #5 hypothyroidism-patient will remain on Synthroid at this time I have reviewed Julianna Palacios's progress note including her medical assessment and plan of care and endorse it with the above additions. Total clinical time spent by myself addressing the patient's medical issues, reviewing all of the patient's medical data, and collaboration with the patient's care team: 25 minutes. Visit Charges Inpatient E&M: 74586 Subs Hosp L3
--- NOTE | 2021-09-16 15:31 | NURSING ---
spoke with dietary regarding pt request to speak with someone in dietary.
--- NOTE | 2021-09-16 16:02 | NS ---
Pt requesting to see dietitian. He had questions about how to order from the menu - had complaints of not getting or getting more than what he ordered. Explained his diet order, what the numbers behind food items on the menu mean and that he never gets to talk to a real person when he places his meal order. Suggested that when he calls to place his order, that he ask the tally person to call him back if he has questions. Pt receptive to this idea and was appreciative of dietitian stopping by to talk to him.
[2021-09-16 16:16] LABS: Bedside Glucose 245 mg/dL (70-110)
--- NOTE | 2021-09-16 17:09 | CHAPLAIN ---
Type of Pastoral Visit _x__ Initial Visit ___ Follow-up Visit ___ On-call Visit ___ General Patient Visit ___ Spiritual Assessment ___ Family Conference ___ Bereavement ___ Rapid Response ___ Code Blue ___ Other (describe below) Pastoral Care Referral From _x__ Patient ___ Family ___ Nurse ___ Physician ___ Glass Beveler ___ Vinyl Cutter ___ Other (describe below) Sacrament/Intervention _x__ Active listening ___ Anointing ___ Shinto ___ Bereavement ___ Communion _x__ Leatha exploration ___ _x__ Life review _x__ Prayer ___ Reconciliation ___ Sacrament of Sick _x__ Supportive presence ___ Wedding ___ Other (describe below) Pastoral Comments patient very open to talk about his life; pt acknowledges some of his emotional feelings and also his spiritual questions or lack of understanding; pt is facing a surgery and already struggles with managing in life; pt would like to read a Bible and one was given to him; lots of time to listen; prayer was welcomed
[2021-09-16 22:50] LABS: Bedside Glucose 269 mg/dL (70-110)
[2021-09-16 23:00] VITALS: BP 175/100; PULSE 75; RESP 18; TEMP 36.8; O2SAT 100
[2021-09-16 23:11] VITALS: BP 175/100; PULSE 75
[2021-09-16] MEDS: hydrALAZINE 20 MG/ML Vial 10 MG IV (23:11)
[2021-09-16] MEDS: Vancomycin IV 1,000 MG/200 ML BAG 200 MG IV (23:17)
[2021-09-17 02:51] LABS: Bedside Glucose 219 mg/dL (70-110)
[2021-09-17] MEDS: Vancomycin IV 1,000 MG/200 ML BAG 200 MG IV ×3 (05:18→21:58)
[2021-09-17] MEDS: 0.9% Saline Lock 10 ML Syringe IV ×3 (05:19→23:22)
[2021-09-17] MEDS: Enoxaparin 40 MG/0.4 ML Syringe SC (05:34)
[2021-09-17] MEDS: Gabapentin 300 MG Capsule PO ×3 (05:35→21:58)
[2021-09-17 05:50] LABS: Absolute Lymphocyte Count 2.31 X10^3/uL (0.83-4.51); Absolute Neutrophil Count 4.5 X10^3/uL (2.0-7.7); Basophil# 0.09 X10^3/uL; Basophil% 1.1 % (0-1); Eosinophil# 0.36 X10^3/uL; Eosinophils% 4.6 % (0-5); Hematocrit 43.2 % (40-54); Hemoglobin 14.5 g/dL (13.0-16.5); Lymphocyte # 2.31 X10^3/ul (0.83-4.51); Lymphocyte % 29.3 % (19-41); Mean Corp Hgb Conc 33.6 g/dL (32-36); Mean Corpuscular Hgb 28.6 pg (27.0-32.0); Mean Corpuscular Volume 85.2 fL (80-94); Mean Platelet Vol. 10.5 fl (6.2-12.0); Monocyte# 0.67 X10^3/uL; Monocyte% 8.5 % (0-10); NRBC Flagged by Analyzer 0 % (0-5); Neutrophil # 4.45 X10^3/uL (2.7-7.7); Neutrophil % 56.4 % (47-70); Platelet Count 188 K/mm3 (150-450); RBC Distribution Width CV 14.3 % (11.6-14.6); Red Blood Count 5.07 M/mm3 (4.6-6.2); White Blood Count 7.9 K/mm3 (4.4-11.0)
[2021-09-17] MEDS: oxyCODONE 5 MG Tablet PO ×4 (06:24→20:32)
[2021-09-17] MEDS: Levothyroxine 25 MCG TABLET PO (06:25)
[2021-09-17 06:26] LABS: Anion Gap 4 (5-15); BUN 11 mg/dL (7-18); BUN/Creat Ratio 23.1 RATIO (10-20); Calcium,Total 8.7 mg/dL (8.5-10.1); Chloride 110 mmol/L (98-107); Creatinine, Serum 0.48 mg/dL (0.70-1.30); EST Glomerular Filtration Rate 200 mL/min (>60); Est Glom Filt Rate - Afr Amer 242 mL/min (>60); Estimated Creatinine Clearance 190.25 ml/min; Glucose 98 mg/dL (74-106); Potassium 4.1 mmol/L (3.5-5.1); Sodium Level 140 mmol/L (136-145)
[2021-09-17 06:31] LABS: Bedside Glucose 83 mg/dL (70-110)
[2021-09-17 07:39] VITALS: BP 157/94; PULSE 86; RESP 21; TEMP 37; O2SAT 99
--- NOTE | 2021-09-17 08:12 | NURSING ---
patient was speaking when respirations were taken
[2021-09-17] MEDS: Ferrous Sulfate 325 MG Tablet PO (09:09)
[2021-09-17] MEDS: Lisinopril 10 MG Tablet PO (09:10)
[2021-09-17] MEDS: Pantoprazole Sodium 40 MG Tablet PO (09:11)
--- NOTE | 2021-09-17 09:24 | CASEMGMT ---
Social Work Note SW placed a call to pt's CM Lynn Bernard at [facility] and left message updating her on pt's admission to [facility]. Naomi Garner SENIOR TALENT MANAGEMENT CONSULTANT, MELTER SUPERVISOR ELECTRIC ARC FURNACE
--- NOTE | 2021-09-17 10:12 | PN.ID_ITS ---
Physical Exam Narrative Feeling ok, legs sore, no fever, no n/v/d. Const no apparent distress General Appearance: cooperative Resp normal air movement and clear to auscultation bilaterally Cardio regular rate and regular rhythm GI soft to palpation, non-tender and non-distended Skin Skin Narrative: L stump with some purulence at open wound ID ID: Route of nutrition/ use of supplements: [] Nutritional Intake: [] IV Site: [] Brady Catheter: [] Assessment & Plan Assessment/Plan (1) MRSA (methicillin resistant staph aureus) culture positive: PLAN: L stump MRSA osteo - Cont vanc, cefepime. Ortho following. Covid vaccine x3. Pt wants to be aggressive with management given h/o recurrent inf ections. Ongoing drainage from stump. Will follow, d/w primary team (2) DM type 1 (diabetes mellitus, type 1): QUALIFIERS: Diabetes mellitus complication status: with other specified complication Qualified Code(s): E10.69 - Type 1 diabetes mellitus with other specified complication (3) PAD (peripheral artery disease):
[2021-09-17] MEDS: Insulin Lispro 100 UNIT/ML INSULN.PEN SC ×3 (11:14→22:06)
[2021-09-17 11:30] LABS: Bedside Glucose 225 mg/dL (70-110)
--- NOTE | 2021-09-17 11:44 | WOUNDNOTE ---
wound photo: left stump
--- NOTE | 2021-09-17 11:50 | CASEMGMT ---
Social Work Note BASILIO reviewed chart. Pt with History of ETOH/Substance Abuse Hx and Depression. SW in to speak with pt. SW introduced self and role at [facility]. Pt is alert and orientated, engages appropriately in conversation. Pt states that he is doing ok. Pt states that he wants to be aggressive with his treatment and would rather have the additional surgery to hopefully get rid of the infection instead of being on assisted Antibiotics. SW offered support to pt. Pt states that [facility] to get a brace and diabetic shoes but that had to be cancelled since pt is still at [facility]. Pt states that it is hard to leave his house and tries to make his appointments on ,, when his aide is available to take pt to appointments. SW spoke with pt about a support system. Pt states that he has two sons that live in [place]. Pt states that he talks to them weekly, states that he tries to see his younger son Koko on the weekends. Pt states his oldest son is named Curtis. SW asked pt about his brother Christiano. Pt states that Christiano is getting ready to go to the [facility] with his and has his own things going on as Christiano's daughter a few years ago and Christiano has her children. Substance Abuse Hx: Pt states history of Substance Abuse. Pt states he used to use crack, coke, meth. Pt denied any current substance abuse. Pt states he only uses Marijuana. Mental Health Hx: Pt states he has history of Depression. Pt states that he is a lot healthier now than he was years ago when he was using substances. Pt states that in either 2017 or 2018 he tried to kill himself but hanging himself or overdosing. Pt denied any recent attempts to kill himself. Pt states that when he tried to kill himself he was also using substances (Crack, Coke, Meth). Pt denied any recent suicidal thoughts/plans/ideations. Pt denied any current suicidal/homicidal thoughts/plans/ideations. Pt states he has no intent to kill himself. Pt states he is not on any medication. Pt states that when his aide comes over ,W,F it helps when his aide is there because it is someone to talk to. SW informed pt that counseling would provide someone to talk to and that a lot of the visits could be done remotely. Pt denied wanting any counseling resources. Again, pt denied any current suicidal thoughts/plans/ideations. Goals: Pt states that he would like to develop a better relationship with his sons. Pt states that he would also like to take a train ride to any location. SW spent much time with pt and provided support to pt. Pt thanked this worker for talking to him. Pt denied additional needs or concerns at this time. Naomi Garner TOWEL SEWER, ELEVATOR REPAIRER APPRENTICE
--- NOTE | 2021-09-17 13:06 | PN.HOSP_ITS ---
Documented by User: Julianna Palacios NP, SERVICE STATION ATTENDANT-C 09/17/21 13:12 Subjective Subjective Patient seen and examined. Patient states he is amenable to surgical intervention if recommended. He states he does not want to go home on long-term IV antibiotics. He denies fever, chills. Denies other symptoms or complaints. Objective Data Objective Data Vital Signs: Vital Signs Temp Pulse Resp BP Pulse Ox 98.6 F 86 21 H 157/94 H 99 09/17/21 07:39 09/17/21 07:39 09/17/21 07:39 09/17/21 07:39 09/17/21 07:39 Oxygen Delivery Method Room Air Weight: 162 lb 11.218 oz Body Mass Index (BMI) 24.0 Intake & Output: Intake and Output for Last 24 Hours 09/15/21 09/16/21 09/17/21 23:59 23:59 23:59 Intake Total 3284.75 / 3284.75 930.25 / 930.25 500 / 500 Output Total 1900 / 1900 2225 / 2225 600 / 600 Balance 1384.75 / 1384.75 -1294.75 / -1294.75 -100 / -100 Lab / Micro Data Result Diagrams: 09/17/21 05:30 09/17/21 05:30 Labs: Laboratory Results - last 24 hr 09/16/21 16:09: POC Glucose 245 H 09/16/21 22:43: POC Glucose 269 H 09/17/21 02:40: POC Glucose 219 H 09/17/21 05:30: WBC 7.9, RBC 5.07, Hgb 14.5, Hct 43.2, MCV 85.2, MCH 28.6, MCHC 33.6, RDW Std Deviation 44.0 H, RDW Coeff of Candace 14.3, Plt Count 188, MPV 10.5, Immature Gran % (Auto) 0.100, Neut % (Auto) 56.4, Lymph % (Auto) 29.3, [place] % (Auto) 8.5, Eos % (Auto) 4.6, Baso % (Auto) 1.1 H, Absolute Neuts (auto) 4.5, Absolute Lymphs (auto) 2.31, Nucleated RBC % 0 09/17/21 05:30: Sodium 140, Potassium 4.1, Chloride 110 H, Carbon Dioxide 26.0, Anion Gap 4 L, BUN 11, Creatinine 0.48 L, Estim Creat Clear Calc 190.25, Est GFR (MDRD) Af Amer 242, Est GFR (MDRD) Non-Af 200, BUN/Creatinine Ratio 23.1 H, Glucose 98, Calcium 8.7 09/17/21 06:23: POC Glucose 83 09/17/21 11:13: POC Glucose 225 H Micro: Microbiology 09/15/21 12:30 Wound - Knee Gram Stain - Final 09/15/21 12:30 Wound - Knee Wound Culture - Final Meth. resistant Staph. aureus 09/14/21 22:00 Blood Culture (Wb) - Anticubital Right Blood Culture - Preliminary No growth in 48 hours. 09/14/21 21:58 Blood Culture (Wb) - Anticubital Left Blood Culture - Preliminary No growth in 48 hours. Physical Exam Const alert, oriented x3 and no apparent distress Orientation / Consciousness: awake, oriented to person, oriented to place and oriented to time HEENT normocephalic and moist oral mucous membranes Eyes PERRL, EOMs intact bilaterally and conjunctivae normal Neck no lymphadenopathy Resp normal respiratory effort and clear to auscultation bilaterally Cardio regular rate, regular rhythm and no murmurs Peripheral Pulses: pulses 2+ throughout GI normal to inspection, nondistended, normoactive bowel sounds, non-tender and non-distended Extremity normal to inspection Extremity Narrative: Left below the knee amputation. Skin no rashes or lesions noted Skin Narrative: Left stump redness with foul-smelling drainage. Lesions: no lesions Rashes: no rashes Trauma: no lacerations or abrasions Neuro CN's II-XII intact bilaterally, no focal motor deficits, no sensory deficits not ed and deep tendon reflexes 2+ bilaterally Psych mental status grossly normal and affect normal Assessment & Plan Assessment/Plan (1) Cellulitis: QUALIFIERS: Laterality: left Site of cellulitis: extremity Site of cellulitis of extremity: lower extremity Qualified Code(s): L03.116 - Cellulitis of left lower limb PLAN: 1. Left below the knee stump cellulitis-orthopedic and ID consulted. MRI shows mild osteomyelitis. IV vanc and IV cefepime pending cultures. Cultures + MRSA. Await orthopedic surgery recommendations. Patient amenable to surgical intervention. 2. Uncontrolled type 1 diabetes-continue home insulin regimen. Accu-Cheks with sliding scale insulin. Hemoglobin A1c 10.8%. Recommend referral to endocrinology at discharge. 3. Right Charcot foot/history of left below the knee amputation/neuropathy secondary to type 1 diabetes 4. Hypertension-improved from prior. Continue lisinopril. 5. Hypothyroidism- continue Synthroid regimen. 6. GERD-continue PPI. 7. Tobacco dependence-encouraged cessation. DVT prophylaxis- SCDs, Lovenox nv This patient was seen by ANDREW Man under the supervision of Dr. Monroe. Time spent examining patient, reviewing data and subsequent management of care: 10 Minutes Documented by User: Dr. Alfonso Monroe, 09/17/21 18:50 Objective Data Lab / Micro Data Result Diagrams: 09/17/21 05:30 09/17/21 05:30 Charges/Coding Addendum Addendum: Patient was seen and examined today independently of Julianna Palacios, I talked briefly with Dr. Wayne childers by phone, he states that he will not have time to do any surgical intervention on the patient tomorrow, it could be done on however. I left word with nursing to explain this to the patient. I talked briefly with infectious diseases today and infectious diseases stated that they felt the patient would have a better outcome if the area on the left stump was debrided. Const alert, oriented x3 and no apparent distress Orientation / Consciousness: awake, oriented to person, oriented to place and oriented to time HEENT normocephalic and moist oral mucous membranes Eyes PERRL, EOMs intact bilaterally and conjunctivae normal Neck no lymphadenopathy Resp normal respiratory effort and clear to auscultation bilaterally Cardio regular rate, regular rhythm and no murmurs Peripheral Pulses: pulses 2+ throughout GI normal to inspection, nondistended, normoactive bowel sounds, non-tender and non-distended Extremity normal to inspection Extremity Narrative: Left below the knee amputation Skin no rashes or lesions noted Skin Narrative: Left stump redness Lesions: no lesions Rashes: no rashes Trauma: no lacerations or abrasions Neuro CN's II-XII intact bilaterally, no focal motor deficits, no sensory deficits noted and deep tendon reflexes 2+ bilaterally Psych mental status grossly normal and affect normal Impression: #1 osteomyelitis of the left tibial stump-patient will remain on his present antibiotics per infectious diseases, orthopedic surgery is seeing the patient will discuss further care with him tomorrow, tentatively there will be surgical intervention this #2 cellulitis of the left leg amputation stump-patient will remain on his current antibiotics at this time, he is growing methicillin-resistant staph aureus #3 uncontrolled type 1 diabetes-patient will need close follow-up as an outpatient with an ruling machine operator, I encouraged the patient that he must get vigilant on caring for his type 1 diabetes. Blood sugars will be monitored, sliding scale insulin is being used to control his blood sugar #4 essential hypertension-patient will remain on his present medications #5 hypothyroidism-patient will remain on Synthroid at this time I have reviewed Julianna Palacios's progress note including her medical assessment and plan of care and endorse it. Total clinical time spent by myself reviewing the patient's medical record, examining the patient, and collaborating with the patient's care team today: 20 minutes Visit Charges Inpatient E&M: [id number] Subs Hosp L2
[2021-09-17 14:14] LABS: Vancomycin, Trough Level 14.2 ug/mL (5.0-15.0)
[2021-09-17 14:23] VITALS: BP 134/92; PULSE 82; RESP 16; TEMP 36.9; O2SAT 96
--- NOTE | 2021-09-17 14:39 | PCM.RX.CS ---
Consult Pharmacy has been consulted to manage selected antiobiotic: Vancomycin Type of Consult: Follow-up Labs: Sodium 140 mmol/L (136-145) 09/17/21 05:30 Potassium 4.1 mmol/L (3.5-5.1) 09/17/21 05:30 Chloride 110 mmol/L (98-107) H 09/17/21 05:30 Carbon Dioxide 26.0 mmol/L (21.0-32.0) 09/17/21 05:30 Anion Gap 4 (5-15) L 09/17/21 05:30 BUN 11 mg/dL (7-18) 09/17/21 05:30 Creatinine 0.48 mg/dL (0.70-1.30) L 09/17/21 05:30 Est GFR (MDRD) Af Amer 242 mL/min (>60) 09/17/21 05:30 Est GFR (MDRD) Non-Af 200 mL/min (>60) 09/17/21 05:30 BUN/Creatinine Ratio 23.1 RATIO (10-20) H 09/17/21 05:30 Glucose 98 mg/dL (74-106) 09/17/21 05:30 Vancomycin Trough 14.2 ug/mL (5.0-15.0) 09/17/21 13:30 Microbiology: Microbiology 09/15/21 12:30 Wound - Knee Gram Stain - Final 09/15/21 12:30 Wound - Knee Wound Culture - Final Meth. resistant Staph. aureus 09/14/21 22:00 Blood Culture (Wb) - Anticubital Right Blood Culture - Preliminary No growth in 48 hours. 09/14/21 21:58 Blood Culture (Wb) - Anticubital Left Blood Culture - Preliminary No growth in 48 hours. Goal Trough: 15-20 mcg/mL Pharmacy Plan for Drug Dosing: VANCOMYCIN LEVEL RECEIVED Current Vancomycin Dose: 1000mg q8h (,,) Number of Doses Received: 1750mg x1, 1000mg x2 Vancomycin Level: 14.2 Hours Since Last Dose: 8 Renal Function: SrCr 0.41 Renal Function Trend: stable Lab/Micro: Vancomycin Plan/Comments: resulted trough is slightly below the ordered goal trough of 15-20. recommend continuing current dose of 1000mg q8h and checking trough in 4 more doses. Pending Level: 3/2/22 at 2130 Pharmacy Service will continue to monitor and adjust dosing as required. Follow-Up Labs: Trough Vancomycin - 09/18/21 at 2130
--- NOTE | 2021-09-17 14:41 | CASEMGMT ---
MATT MADISON in to pt room to discuss care. Provided pt with card for confectionery drops machine operator locally. Pt states that he has had some of the top endocrinologists and they are not able to get his blood sugar under control. He is agreeable to establishing with a new confectionery drops machine operator but would like to do so on his own. He is aware that should he change his mind to notify the RN GRICELDA. Pt aware that [facility] is not covering his service area currently. Patient was provided a list of HHC providers including quality and resource use data and consistent with the patient?s preferred geographic region, medical needs, and insurance network. Pt states he does not want to have HHC unless he needs IV atb or wound care. He denies the need for SN for diabetic education. MATT MADISON to follow treatment course. Pt denies any questions or concerns at this time.
[2021-09-17 17:26] LABS: Bedside Glucose 332 mg/dL (70-110)
[2021-09-17] MEDS: Morphine 2 MG/ML Syringe IV ×2 (18:53→23:21)
[2021-09-17 20:12] VITALS: BP 165/93; PULSE 81; RESP 18; TEMP 37; O2SAT 97
[2021-09-17 20:32] VITALS: BP 165/93; PULSE 81
[2021-09-17] MEDS: hydrALAZINE 20 MG/ML Vial 10 MG IV (20:32)
[2021-09-17 22:31] LABS: Bedside Glucose 288 mg/dL (70-110)
[2021-09-17] MEDS: MELATONIN 3 MG TABLET PO (23:43)
[2021-09-18] VITALS (8 sets, daily range): BP systolic 121–178; BP diastolic 75–102; PULSE 83–103; RESP 14–20; TEMP 36.6–37.1; O2SAT 96–99
--- NOTE | 2021-09-18 02:08 | NURSING ---
ACCUCHECK 98 - GIVEN SNACK OF MINGO DUNES & MILK PER PT REQUEST
[2021-09-18 02:11] LABS: Bedside Glucose 98 mg/dL (70-110)
[2021-09-18] MEDS: Vancomycin IV 1,000 MG/200 ML BAG 200 MG IV ×3 (05:28→23:01)
[2021-09-18] MEDS: Morphine 2 MG/ML Syringe IV ×4 (05:31→22:00)
[2021-09-18] MEDS: Levothyroxine 25 MCG TABLET PO (05:32)
[2021-09-18] MEDS: Acetaminophen 325 MG Tablet 650 MG PO ×2 (05:41→20:08)
[2021-09-18] MEDS: Enoxaparin 40 MG/0.4 ML Syringe SC (05:42)
[2021-09-18] MEDS: Gabapentin 300 MG Capsule PO ×3 (05:42→22:01)
[2021-09-18 05:45] LABS: Absolute Lymphocyte Count 2.59 X10^3/uL (0.83-4.51); Absolute Neutrophil Count 5.5 X10^3/uL (2.0-7.7); Basophil# 0.08 X10^3/uL; Basophil% 0.8 % (0-1); Eosinophil# 0.49 X10^3/uL; Eosinophils% 5.1 % (0-5); Hematocrit 43.5 % (40-54); Hemoglobin 14.9 g/dL (13.0-16.5); Lymphocyte # 2.59 X10^3/ul (0.83-4.51); Lymphocyte % 27.1 % (19-41); Mean Corp Hgb Conc 34.3 g/dL (32-36); Mean Corpuscular Hgb 29.3 pg (27.0-32.0); Mean Corpuscular Volume 85.6 fL (80-94); Monocyte# 0.86 X10^3/uL; NRBC Flagged by Analyzer 0 % (0-5); Neutrophil # 5.51 X10^3/uL (2.7-7.7); Neutrophil % 57.8 % (47-70); Platelet Count 237 K/mm3 (150-450); RBC Distribution Width CV 14.1 % (11.6-14.6); RBC Distribution Width SD 44.3 fl (35.1-43.9); Red Blood Count 5.08 M/mm3 (4.6-6.2); White Blood Count 9.6 K/mm3 (4.4-11.0)
[2021-09-18 05:51] LABS: Bedside Glucose 68 mg/dL (70-110)
[2021-09-18 06:08] LABS: Anion Gap 5 (5-15); BUN 12 mg/dL (7-18); BUN/Creat Ratio 27.6 RATIO (10-20); Calcium,Total 8.9 mg/dL (8.5-10.1); Chloride 109 mmol/L (98-107); Creatinine, Serum 0.43 mg/dL (0.70-1.30); EST Glomerular Filtration Rate 223 mL/min (>60); Est Glom Filt Rate - Afr Amer 269 mL/min (>60); Estimated Creatinine Clearance 212.37 ml/min; Glucose 63 mg/dL (74-106); Potassium 4.1 mmol/L (3.5-5.1); Sodium Level 139 mmol/L (136-145)
[2021-09-18 06:56] LABS: Bedside Glucose 128 mg/dL (70-110)
--- NOTE | 2021-09-18 07:44 | PN.ORTHO_ITS ---
Subjective Subjective Patient seen and examined. Denies any new complaints. Denies fevers, chills, nausea vomiting, chest pain or shortness of breath. States pain is stable and is left BKA. Objective Data Objective Data Vital Signs: Vital Signs Temp Pulse Resp BP Pulse Ox 98.4 F 103 H 18 121/75 H 97 09/18/21 02:00 09/18/21 02:00 09/18/21 02:00 09/18/21 02:00 09/18/21 02:00 Oxygen Delivery Method Room Air Weight: 162 lb 11.218 oz Body Mass Index (BMI) 24.0 Intake & Output: Intake and Output for Last 24 Hours 09/16/21 09/17/21 09/18/21 23:59 23:59 23:59 Intake Total 930.25 / 930.25 1960 / 1960 612 / 612 Output Total 2225 / 2225 1800 / 1800 775 / 775 Balance -1294.75 / -1294.75 160 / 160 -163 / -163 Lab / Micro Data Result Diagrams: 09/18/21 05:26 09/18/21 05:26 Labs: Laboratory Results - last 24 hr 09/17/21 11:13: POC Glucose 225 H 09/17/21 13:30: Vancomycin Trough 14.2 09/17/21 17:19: POC Glucose 332 H 09/17/21 22:03: POC Glucose 288 H 09/18/21 02:00: POC Glucose 98 09/18/21 05:26: WBC 9.6, RBC 5.08, Hgb 14.9, Hct 43.5, MCV 85.6, MCH 29.3, MCHC 34.3, RDW Std Deviation 44.3 H, RDW Coeff of Candace 14.1, Plt Count 237, MPV 11.0, Immature Gran % (Auto) 0.200, Neut % (Auto) 57.8, Lymph % (Auto) 27.1, [place] % (Auto) 9.0, Eos % (Auto) 5.1 H, Baso % (Auto) 0.8, Absolute Neuts (auto) 5.5, Absolute Lymphs (auto) 2.59, Nucleated RBC % 0 09/18/21 05:26: Sodium 139, Potassium 4.1, Chloride 109 H, Carbon Dioxide 25.0, Anion Gap 5, BUN 12, Creatinine 0.43 L, Estim Creat Clear Calc 212.37, Est GFR (MDRD) Af Amer 269, Est GFR (MDRD) Non-Af 223, BUN/Creatinine Ratio 27.6 H, Glucose 63 L, Calcium 8.9 09/18/21 05:45: POC Glucose 68 L 09/18/21 06:51: POC Glucose 128 H Micro: Microbiology 09/15/21 12:30 Wound - Knee Gram Stain - Final 09/15/21 12:30 Wound - Knee Wound Culture - Final Meth. resistant Staph. aureus 09/14/21 22:00 Blood Culture (Wb) - Anticubital Right Blood Culture - Preliminary No growth in 48 hours. 09/14/21 21:58 Blood Culture (Wb) - Anticubital Left Blood Culture - Preliminary No growth in 48 hours. Physical Exam Narrative General -A&Ox3, NAD, appears stated age. Vital signs stable, afebrile. Left lower extremity-BKA is noted with 5 mm x 5 mm circular wound along the distal lateral stump edge with expressible purulent drainage. No fluctuance is appreciated or induration. Nontender about the knee. There is no knee effusion. Erythema is minimal. Brisk capillary refill in the stump skin edges. Sensation intact. No pain with passive flexion and extension of the knee. Const alert, oriented x3 and no apparent distress General Appearance: cooperative HEENT head/scalp atraumatic Eyes PERRL Neuro moves all extremities Psych mental status grossly normal Assessment & Plan Assessment/Plan (1) Cellulitis: QUALIFIERS: Site of cellulitis: extremity Site of cellulitis of extremity: lower extremity Laterality: left Qualified Code(s): L03.116 - Cellulitis of left lower limb PLAN: Left BKA stump infection with osteomyelitis -MRI reviewed. MRI demonstrates evidence of osteomyelitis in the distal tip of the residual tibia. We discussed surgical versus nonsurgical management. Patient would like to undergo surgical intervention. We discussed revision BKA versus above-knee amputation. We discussed the risks, benefits, alternatives to both procedures. I stated that shortening his BKA may result in inability to utilize infected prosthesis as well as present the opportunity for continued osteomyelitis. The risks of the above-knee amputation include loss of function of the limb, wound complication needing even shorter transfemoral amputation. If an above-knee amputation needs done in the future, hopefully he is more medically optimized as his most recent hemoglobin A1c was over 10. He expressed understanding of the above risks and benefits. We agreed upon revision below- knee amputation with debridement of the soft tissue and minimal shortening of the tibia. All questions were answered to patient satisfaction. Plan to proceed with surgery tomorrow 09/19/2021. Clear liquids after midnight, n.p.o. 4 hours prior to surgery. Continue antibiotics per infectious disease. Informed consent obtained.
[2021-09-18] MEDS: Pantoprazole Sodium 40 MG Tablet PO (08:28)
[2021-09-18] MEDS: Lisinopril 20 MG Tablet PO (08:28)
[2021-09-18] MEDS: oxyCODONE 5 MG Tablet PO ×2 (08:28→20:09)
[2021-09-18] MEDS: Ferrous Sulfate 325 MG Tablet PO (08:28)
[2021-09-18] MEDS: Senna/Docusate Sodium 1 Tablet 2 TABLET PO (08:28)
[2021-09-18] MEDS: 0.9% Saline Lock 10 ML Syringe IV ×5 (10:58→22:00)
[2021-09-18] MEDS: Insulin Lispro 100 UNIT/ML INSULN.PEN SC ×2 (11:06→22:12)
[2021-09-18] MEDS: hydrALAZINE 20 MG/ML Vial 10 MG IV ×2 (11:14→21:59)
[2021-09-18 11:15] LABS: Bedside Glucose 220 mg/dL (74-106)
--- NOTE | 2021-09-18 11:16 | PN.HOSP_ITS ---
Documented by User: Julianna Palacios NP, [employer] 09/18/21 11:28 Subjective Subjective Patient seen and examined. States he is concerned about taking morning Lantus as his sugars have been low and it is making him feel sick. Patient states he becomes symptomatic if his blood sugars are in the 120s. Objective Data Objective Data Vital Signs: Vital Signs Temp Pulse Resp BP Pulse Ox 97.9 F 83 14 178/94 H 96 09/18/21 11:12 09/18/21 11:14 09/18/21 11:12 09/18/21 11:14 09/18/21 11:12 Oxygen Delivery Method Room Air Weight: 162 lb 11.218 oz Body Mass Index (BMI) 24.0 Intake & Output: Intake and Output for Last 24 Hours 09/16/21 09/17/21 09/18/21 23:59 23:59 23:59 Intake Total 930.25 / 930.25 1960 / 1960 650 / 650 Output Total 2225 / 2225 1800 / 1800 775 / 775 Balance -1294.75 / -1294.75 160 / 160 -125 / -125 Lab / Micro Data Result Diagrams: 09/18/21 05:26 09/18/21 05:26 Labs: Laboratory Results - last 24 hr 09/17/21 11:13: POC Glucose 225 H 09/17/21 13:30: Vancomycin Trough 14.2 09/17/21 17:19: POC Glucose 332 H 09/17/21 22:03: POC Glucose 288 H 09/18/21 02:00: POC Glucose 98 09/18/21 05:26: WBC 9.6, RBC 5.08, Hgb 14.9, Hct 43.5, MCV 85.6, MCH 29.3, MCHC 34.3, RDW Std Deviation 44.3 H, RDW Coeff of Candace 14.1, Plt Count 237, MPV 11.0, Immature Gran % (Auto) 0.200, Neut % (Auto) 57.8, Lymph % (Auto) 27.1, [place] % (Auto) 9.0, Eos % (Auto) 5.1 H, Baso % (Auto) 0.8, Absolute Neuts (auto) 5.5, Absolute Lymphs (auto) 2.59, Nucleated RBC % 0 09/18/21 05:26: Sodium 139, Potassium 4.1, Chloride 109 H, Carbon Dioxide 25.0, Anion Gap 5, BUN 12, Creatinine 0.43 L, Estim Creat Clear Calc 212.37, Est GFR (MDRD) Af Amer 269, Est GFR (MDRD) Non-Af 223, BUN/Creatinine Ratio 27.6 H, Glucose 63 L, Calcium 8.9 09/18/21 05:45: POC Glucose 68 L 09/18/21 06:51: POC Glucose 128 H 09/18/21 11:01: POC Glucose 220 H Micro: Microbiology 09/15/21 12:30 Wound - Knee Gram Stain - Final 09/15/21 12:30 Wound - Knee Wound Culture - Final Meth. resistant Staph. aureus 09/14/21 22:00 Blood Culture (Wb) - Anticubital Right Blood Culture - Pr eliminary No growth in 48 hours. 09/14/21 21:58 Blood Culture (Wb) - Anticubital Left Blood Culture - Preliminary No growth in 48 hours. Physical Exam Const alert, oriented x3 and no apparent distress Orientation / Consciousness: awake, oriented to person, oriented to place and oriented to time HEENT normocephalic and moist oral mucous membranes Eyes PERRL, EOMs intact bilaterally and conjunctivae normal Neck no lymphadenopathy Resp normal respiratory effort and clear to auscultation bilaterally Cardio regular rate, regular rhythm and no murmurs Peripheral Pulses: pulses 2+ throughout GI normal to inspection, nondistended, normoactive bowel sounds, non-tender and non-distended Extremity normal to inspection Extremity Narrative: Left below the knee amputation. Skin no rashes or lesions noted Skin Narrative: Left stump wound, dressing intact. Lesions: no lesions Rashes: no rashes Trauma: no lacerations or abrasions Neuro CN's II-XII intact bilaterally, no focal motor deficits, no sensory deficits noted and deep tendon reflexes 2+ bilaterally Psych mental status grossly normal and affect normal Assessment & Plan Assessment/Plan (1) Cellulitis: QUALIFIERS: Laterality: left Site of cellulitis: extremity Site of cellulitis of extremity: lower extremity Qualified Code(s): L03.116 - Cellulitis of left lower limb PLAN: 1. Left below the knee stump cellulitis-orthopedic and ID consulted. MRI shows mild osteomyelitis. IV vanc and IV cefepime. Cultures + MRSA. Plan for OR 09/19/2021 for below the knee revision/amputation. Wound RN following. Case management consult for discharge planning. 2. Uncontrolled type 1 diabetes-continue home insulin regimen. Accu-Cheks with sliding scale insulin. Hemoglobin A1c 10.8%. Recommend referral to endocrinology at discharge. Patient noncompliant. Refusing adjustment in Lantus regimen as glucose has been uncontrolled. 3. Right Charcot foot/history of left below the knee amputation/neuropathy secondary to type 1 diabetes 4. Hypertension-improved from prior. Continue lisinopril. 5. Hypothyroidism- continue Synthroid regimen. 6. GERD-continue PPI. 7. Tobacco dependence-encouraged cessation. DVT prophylaxis- SCDs, Lovenox sc This patient was seen by ANDREW Man under the supervision of Dr. Monroe. Time spent examining patient, reviewing data and subsequent management of care: 12 Minutes Documented by User: Dr. Alfonso Monroe DO 09/18/21 17:29 Objective Data Lab / Micro Data Result Diagrams: 09/18/21 05:26 09/18/21 05:26 Charges/Coding Addendum Addendum: Patient was seen and examined independently of Julianna Palacios, I went over the necessity to keep his blood sugars under tight control to allow healing of his left stump wound. Patient seems to understand this. Patient will be taken to surgery tomorrow for a debridement of the area. On examination he appeared in good health and spirits. Vital signs as documented. Skin warm and dry, there is some redness noted over the patient's left below the knee amputation stump area.. Neck without JVD, neck was supple, trachea midline, thyroid was normal. Lungs clear bilaterally, normal air movement was noted. Heart exam notable for regular rhythm, normal sounds and absence of murmurs, rubs or gallops. Abdomen unremarkable and without evidence of organomegaly, masses, or abdominal aortic enlargement. Bowel sounds are present, abdomen is not distended. Extremities nonedematous, no cyanosis was noted, no clubbing was noted, there is a Charcot foot noted on the right, there is a below the knee amputation noted on the left with some drainage and redness of the area noted. Neuro: Cranial nerves II through XII are grossly intact, no focal motor deficits were noted, sensation to light touch and pinprick intact, motor exam 5/5 throughout. Psych: Patient is alert and oriented x3, he does not appear anxious or depressed, he does not appear agitated. #1 osteomyelitis of the left tibial stump-patient will remain on his present antibiotics per infectious diseases, orthopedic surgery is seeing the patient will discuss further care with him tomorrow, tentatively there will be surgical intervention this #2 cellulitis of the left leg amputation stump-patient will remain on his current antibiotics at this time, he is growing methicillin-resistant staph aureus #3 uncontrolled type 1 diabetes-patient will need close follow-up as an outpatient with an warranty clerk, I encouraged the patient that he must get vigilant on caring for his type 1 diabetes. Blood sugars will be monitored, sliding scale insulin is being used to control his blood sugar #4 essential hypertension-patient will remain on his present medications #5 hypothyroidism-patient will remain on Synthroid at this time I have reviewed Juliannajoss Palacios's progress note including her medical assessment and plan of care and endorse it with the above additions. Total clinical time spent by myself addressing the patient's medical issues, reviewing the patient's medical data, and collaborating with the patient's care team: 18 minutes Visit Charges Inpatient E&M: 21703 Subs Hosp L2
--- NOTE | 2021-09-18 11:54 | PCM.PN.ID ---
Physical Exam Narrative Feeling ok, no fever, no n/v/d. Const alert and no apparent distress General Appearance: cooperative Resp normal air movement and clear to auscultation bilaterally Cardio regular rate and regular rhythm GI soft to palpation, non-tender and non-distended Extremity Extremity Narrative: no new rash ID ID: Route of nutrition/ use of supplements: [] Nutritional Intake: [] IV Site: [] Brady Catheter: [] Assessment & Plan Assessment/Plan (1) MRSA (methicillin resistant staph aureus) culture positive: PLAN: L stump MRSA osteo - Cont vanc, cefepime. Ortho following. Covid vaccine x3. Pt wants to be aggressive with management given h/o recurrent infections. Ongoing drainage from stump. OR tomorrow. Will follow (2) DM type 1 (diabetes mellitus, type 1): QUALIFIERS: Diabetes mellitus complication status: with other specified complication Qualified Code(s): E10.69 - Type 1 diabetes mellitus with other specified complication (3) PAD (peripheral artery disease):
[2021-09-18 13:10] LABS: Bedside Glucose 91 mg/dL (74-106)
--- NOTE | 2021-09-18 15:00 | CHAPLAIN ---
Type of Pastoral Visit ___ Initial Visit _x__ Follow-up Visit ___ On-call Visit ___ General Patient Visit ___ Spiritual Assessment ___ Family Conference ___ Bereavement ___ Rapid Response ___ Code Blue ___ Other (describe below) Pastoral Care Referral From _x__ Patient ___ Family ___ Nurse ___ Physician ___ Field Artillery Cannoneer ___ Manager Drug Safety ___ Other (describe below) Sacrament/Intervention _x__ Active listening ___ Anointing ___ Muslim ___ Bereavement ___ Communion ___ Leatha exploration ___ ___ Life review _x__ Prayer ___ Reconciliation ___ Sacrament of Sick _x__ Supportive presence ___ Wedding ___ Other (describe below) Pastoral Comments patient welcomes the time to visit with this warehouse lead and is talkative; exploring the feelings and concerns of the patient who will be having a further amputation tomorrow; Pt has BP issues but states he is prepared mentally for the surgery; patient would invite a follow up visit after surgery
[2021-09-18 17:06] LABS: Bedside Glucose 138 mg/dL (74-106)
[2021-09-18 22:27] LABS: Vancomycin, Trough Level 17.5 ug/mL (5.0-15.0)
[2021-09-18 22:31] LABS: Bedside Glucose 380 mg/dL (74-106)
--- NOTE | 2021-09-18 22:49 | PCM.RX.CS ---
Consult Pharmacy has been consulted to manage selected antiobiotic: Vancomycin Type of Consult: Follow-up Suspected Infection: Skin/Soft tissue Prior Doses of Antibiotics Received/Current Regimen: Medications Vancomycin HCl (Vancomycin) 1,000 mg in 200 mls @ 200 mls/hr IV Q8H PEPITO Last Admin: 09/18/21 15:47 Dose: Infused Labs: Sodium 139 mmol/L (136-145) 09/18/21 05:26 Potassium 4.1 mmol/L (3.5-5.1) 09/18/21 05:26 Chloride 109 mmol/L (98-107) H 09/18/21 05:26 Carbon Dioxide 25.0 mmol/L (21.0-32.0) 09/18/21 05:26 Anion Gap 5 (5-15) 09/18/21 05:26 BUN 12 mg/dL (7-18) 09/18/21 05:26 Creatinine 0.43 mg/dL (0.70-1.30) L 09/18/21 05:26 Est GFR (MDRD) Af Amer 269 mL/min (>60) 09/18/21 05:26 Est GFR (MDRD) Non-Af 223 mL/min (>60) 09/18/21 05:26 BUN/Creatinine Ratio 27.6 RATIO (10-20) H 09/18/21 05:26 Glucose 63 mg/dL (74-106) L 09/18/21 05:26 Vancomycin Trough 17.5 ug/mL (5.0-15.0) H 09/18/21 21:38 Microbiology: Microbiology 09/15/21 12:30 Wound - Knee Gram Stain - Final 09/15/21 12:30 Wound - Knee Wound Culture - Final Meth. resistant Staph. aureus 09/14/21 22:00 Blood Culture (Wb) - Anticubital Right Blood Culture - Preliminary No growth in 48 hours. 09/14/21 21:58 Blood Culture (Wb) - Anticubital Left Blood Culture - Preliminary No growth in 48 hours. Weight used for dosin.8 kg Estimated Creatinine Clearance: 212 Goal Trough: 15-20 mcg/mL Pharmacy Plan for Drug Dosing: Vancomycin trough level of 17.5 was within target range of 15-20. Will continue current dosing and re-draw a trough in two days. Pharmacy Service will continue to monitor and adjust dosing as required. Follow-Up Labs: Trough Vancomycin Labs to be done on [date and time ordered]: 09/20/21 @1315
[2021-09-19] VITALS (11 sets, daily range): BP systolic 122–155; BP diastolic 78–105; PULSE 88–104; RESP 16–20; TEMP 36.1–36.9; O2SAT 96–100; BMI 24.0
[2021-09-19 02:21] LABS: Bedside Glucose 199 mg/dL (74-106)
[2021-09-19] MEDS: 0.9% Saline Lock 10 ML Syringe IV ×2 (05:25→22:31)
[2021-09-19] MEDS: Acetaminophen 325 MG Tablet 650 MG PO (05:26)
[2021-09-19] MEDS: oxyCODONE 5 MG Tablet PO (05:26)
[2021-09-19] MEDS: Gabapentin 300 MG Capsule PO ×3 (05:26→22:24)
[2021-09-19] MEDS: Levothyroxine 25 MCG TABLET PO (05:27)
[2021-09-19] MEDS: Vancomycin IV 1,000 MG/200 ML BAG 200 MG IV ×3 (06:04→23:03)
[2021-09-19 06:21] LABS: Bedside Glucose 162 mg/dL (74-106)
[2021-09-19 06:46] LABS: Absolute Lymphocyte Count 1.74 X10^3/uL (0.83-4.51); Absolute Neutrophil Count 3.9 X10^3/uL (2.0-7.7); Basophil# 0.08 X10^3/uL; Basophil% 1.2 % (0-1); Eosinophils% 5.8 % (0-5); Hematocrit 43.9 % (40-54); Hemoglobin 14.8 g/dL (13.0-16.5); Lymphocyte # 1.74 X10^3/ul (0.83-4.51); Lymphocyte % 25.3 % (19-41); Mean Corp Hgb Conc 33.7 g/dL (32-36); Mean Corpuscular Hgb 29.5 pg (27.0-32.0); Mean Corpuscular Volume 87.6 fL (80-94); Mean Platelet Vol. 11.3 fl (6.2-12.0); Monocyte# 0.74 X10^3/uL; Monocyte% 10.8 % (0-10); NRBC Flagged by Analyzer 0 % (0-5); Neutrophil % 56.6 % (47-70); Platelet Count 212 K/mm3 (150-450); RBC Distribution Width CV 14.2 % (11.6-14.6); RBC Distribution Width SD 45.5 fl (35.1-43.9); Red Blood Count 5.01 M/mm3 (4.6-6.2); White Blood Count 6.9 K/mm3 (4.4-11.0)
[2021-09-19 07:09] LABS: Anion Gap 1 (5-15); BUN 13 mg/dL (7-18); BUN/Creat Ratio 17.6 RATIO (10-20); Calcium,Total 8.8 mg/dL (8.5-10.1); Chloride 106 mmol/L (98-107); Creatinine, Serum 0.74 mg/dL (0.70-1.30); EST Glomerular Filtration Rate 121 mL/min (>60); Est Glom Filt Rate - Afr Amer 146 mL/min (>60); Estimated Creatinine Clearance 123.41 ml/min; Glucose 155 mg/dL (74-106); Potassium 4.3 mmol/L (3.5-5.1); Sodium Level 136 mmol/L (136-145)
--- NOTE | 2021-09-19 07:55 | WOUNDNOTE ---
Pt going to surgery today. patient resting in bed with eyes closed. will leave dressing in place since dressing will be removed in the OR. will continue to monitor.
[2021-09-19] MEDS: Morphine 2 MG/ML Syringe IV (08:53)
[2021-09-19] MEDS: Pantoprazole Sodium 40 MG Tablet PO (09:00)
[2021-09-19] MEDS: Lisinopril 20 MG Tablet PO (09:00)
[2021-09-19] MEDS: Ferrous Sulfate 325 MG Tablet PO (09:00)
--- NOTE | 2021-09-19 10:00 | CASEMGMT ---
Addendum entered by Naomi Fonseca 09/19/21 11:49: MATT MADISON received call back from [facility] and they are able to accept patient with anticipated start of care for Thursday. MATT MADISON updated the patient. CM will continue to follow this patient and plan for a safe discharge. Original Note: MATT MADISON updated by ID that patient will need once daily IV ATBs for 6 weeks at discharge. MATT MADISON in to discuss discharge needs with patient. MATT MADISON updated patient regarding IV ATBs at discharge and need for HHC. Patient reviewed list and states he would like [facility] for HHC and [facility] for Infusions. MATT MADISON sent referral to Cielo at [facility] and awaiting call back from [facility] with acceptance. CM will continue to follow this patient and plan for a safe discharge.
--- NOTE | 2021-09-19 12:00 | PCM.PN.HOSP ---
Documented by User: Remy CHILDS 09/19/21 12:08 Subjective Subjective Patient is a 46-year-old male comfortably resting in bed, alert and orient x3. Patient denies development of any new symptoms overnight. Does not appear in acute distress. Objective Data Objective Data Vital Signs: Vital Signs Temp Pulse Resp BP Pulse Ox 98.3 F 88 16 122/82 H 99 09/19/21 08:00 09/19/21 08:00 09/19/21 08:00 09/19/21 08:00 09/19/21 08:00 Oxygen Delivery Method Room Air Weight: 162 lb 11.218 oz Body Mass Index (BMI) 24.0 Intake & Output: Intake and Output for Last 24 Hours 09/17/21 09/18/21 09/19/21 23:59 23:59 23:59 Intake Total 1960 / 1960 3150.00 / 3150.00 700 / 700 Output Total 1800 / 1800 3325 / 3325 600 / 600 Balance 160 / 160 -175.00 / -175.00 100 / 100 Lab / Micro Data Result Diagrams: 09/19/21 06:05 09/19/21 06:05 Labs: Laboratory Results - last 24 hr 09/18/21 13:05: POC Glucose 91 09/18/21 16:53: POC Glucose 138 H 09/18/21 21:38: Vancomycin Trough 17.5 H 09/18/21 22:08: POC Glucose 380 H 09/19/21 02:10: POC Glucose 199 H 09/19/21 06:05: WBC 6.9, RBC 5.01, Hgb 14.8, Hct 43.9, MCV 87.6, MCH 29.5, MCHC 33.7, RDW Std Deviation 45.5 H, RDW Coeff of Candace 14.2, Plt Count 212, MPV 11.3, Immature Gran % (Auto) 0.300, Neut % (Auto) 56.6, Lymph % (Auto) 25.3, [place] % (Auto) 10.8 H, Eos % (Auto) 5.8 H, Baso % (Auto) 1.2 H, Absolute Neuts (auto) 3.9, Absolute Lymphs (auto) 1.74, Nucleated RBC % 0 09/19/21 06:05: Sodium 136, Potassium 4.3, Chloride 106, Carbon Dioxide 29.0, Anion Gap 1 L, BUN 13, Creatinine 0.74, Estim Creat Clear Calc 123.41, Est GFR (MDRD) Af Amer 146, Est GFR (MDRD) Non-Af 121, BUN/Creatinine Ratio 17.6, Glucose 155 H, Calcium 8.8 09/19/21 06:06: POC Glucose 162 H Micro: Microbiology 09/15/21 12:30 Wound - Knee Gram Stain - Final 09/15/21 12:30 Wound - Knee Wound Culture - Final Meth. resistant Staph. aureus 09/14/21 22:00 Blood Culture (Wb) - Anticubital Right Blood Culture - Preliminary No growth in 48 hours. 09/14/21 21:58 Blood Culture (Wb) - Anticubital Left Blood Culture - Preliminary No growth in 48 hours. Physical Exam Const alert, oriented x3 and no apparent distress HEENT head/scalp atraumatic and moist oral mucous membranes Head and Scalp: normocephalic Eyes PERRL, EOMs intact bilaterally and conjunctivae normal Neck no lymphadenopathy, supple and no JVD Resp normal respiratory effort, no retractions and no use of accessory muscles Cardio regular rate, regular rhythm and no JVD GI normal to inspection, nondistended, normoactive bowel sounds Extremity normal to inspection Skin no rashes or lesions noted Neuro CN's II-XII intact bilaterally Psych affect normal Assessment & Plan Assessment/Plan (1) Cellulitis: QUALIFIERS: Laterality: left Site of cellulitis: extremity Site of cellulitis of extremity: lower extremity Qualified Code(s): L03.116 - Cellulitis of left lower limb PLAN: Day 5 Discharge planning: To be determined. 1) LLE Cellulitis, s/p BKA. MRI demonstrated osteoarthritis then wound cultures were positive for MRSA. Patient to undergo debridement and revision of left lower extremity stump today. ID and wound nurse following. Continue vancomycin and cefepime. 2) uncontrolled diabetes mellitus type 1 Patient noncompliant with home diabetic regimen. Hemoglobin A1c 10.8. Continue home insulin as well as sliding scale. Will need referral to endocrinology at discharge. 3) history of left lower extremity BKA Results of right Charcot foot is complicated by uncontrolled diabetes mellitus type 1. Plan as above. 4) HTN Continue lisinopril. 5) hypothyroidism Continue Synthroid. 6) GERD Continue PPI. DVT prophylaxis - Lovenox. Patient seen by Remy Welsh PA-C, under the supervision of Dr. Monroe. Time spent on patient care: 10 minutes. Documented by User: Dr. Alfonso Monroe, 09/19/21 17:33 Objective Data Lab / Micro Data Result Diagrams: 09/19/21 06:05 09/19/21 06:05 Charges/Coding Addendum Addendum: Patient was seen and examined today independently of Remy Welsh, went to surgery today for debridement of his left below the knee amputation stump site. Patient remains on IV antibiotics at this time, ID has indicated that he will be discharged from the hospital on IV antibiotics also. On examination he appeared in good health and spirits. Vital signs as documented. Skin warm and dry, there is some redness noted over the patient's left below the knee amputation stump area.. Neck without JVD, neck was supple, trachea midline, thyroid was normal. Lungs clear bilaterally, normal air movement was noted. Heart exam notable for regular rhythm, normal sounds and absence of murmurs, rubs or gallops. Abdomen unremarkable and without evidence of organomegaly, masses, or abdominal aortic enlargement. Bowel sounds are present, abdomen is not distended. Extremities nonedematous, no cyanosis was noted, no clubbing was noted, there is a Charcot foot noted on the right, there is a below the knee amputation noted on the left with some drainage and redness of the area noted. Neuro: Cranial nerves II through XII are grossly intact, no focal motor deficits were noted, sensation to light touch and pinprick intact, motor exam 5/5 throughout. Psych: Patient is alert and oriented x3, he does not appear anxious or depressed, he does not appear agitated. #1 osteomyelitis of the left tibial stump-patient will remain on his present antibiotics per infectious diseases, orthopedic surgery is seeing the patient-he underwent surgical debridement today of the left tibial stump site #2 cellulitis of the left leg amputation stump-patient will remain on his current antibiotics at this time, he is growing methicillin-resistant staph aureus #3 uncontrolled type 1 diabetes-patient will need close follow-up as an outpatient with an remotely operated vehicle, I encouraged the patient that he must get vigilant on caring for his type 1 diabetes. Blood sugars will be monitored, sliding scale insulin is being used to control his blood sugar #4 essential hypertension-patient will remain on his present medications #5 hypothyroidism-patient will remain on Synthroid at this time I have reviewed Remy Welsh's progress note including his medical assessment and plan of care and endorse it with the above additions. Total clinical time spent by myself addressing the patient's medical issues, reviewing all of his medical data, and in collaboration with the patient's care team: 20 minutes Visit Charges Inpatient E&M: 88276 Subs Hosp L2
[2021-09-19 12:46] LABS: Bedside Glucose 82 mg/dL (74-106)
--- NOTE | 2021-09-19 13:33 | PCM.PN.ID ---
Physical Exam Narrative Feeling ok this AM, no fever, no n/v/d. OR planned. Const alert and no apparent distress General Appearance: cooperative Resp normal air movement and clear to auscultation bilaterally Cardio regular rate and regular rhythm GI soft to palpation, non-tender and non-distended Skin Skin Narrative: no new rash ID ID: Route of nutrition/ use of supplements: [] Nutritional Intake: [] IV Site: [] Brady Catheter: [] Assessment & Plan Assessment/Plan (1) MRSA (methicillin resistant staph aureus) culture positive: PLAN: L stump MRSA osteo - Cont vanc, cefepime. Ortho following. Covid vaccine x3. Pt wants to be aggressive with management given h/o recurrent infections. Ongoing drainage from stump. OR today. Tentative plan for discharge will be for picc and 6 weeks iv dapto (for easier once daily dosing), stop date 10/31/21, weekly bmp, cbc, LFT, CK, and esr. ID followup in 2 weeks. Will follow, d/w hospice case manager and primary team. (2) DM type 1 (diabetes mellitus, type 1): QUALIFIERS: Diabetes mellitus complication status: with other specified complication Qualified Code(s): E10.69 - Type 1 diabetes mellitus with other specified complication (3) PAD (peripheral artery disease):
--- NOTE | 2021-09-19 15:18 | CASEMGMT ---
Discharge Sales Ambassador Faxed Referral to [facility] for planned discharge with IV antibiotics. Waiting for a call back regarding financials and setup. Xochitl [place] Discharge Sales Ambassador
--- NOTE | 2021-09-19 15:45 | PCM.OPRPT ---
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 Ayala/Julian Jorgensen CRNA Complications: None apparent Drains: Quarter-inch Chino drain placed percutaneously Estimated blood loss: 100 cc Urinary output: None recorded IV fluids: Per anesthesia record Specimens: Tibial bone and soft tissue sent for culture Surgical implants: None Preoperative indications: This is a 46-year-old male with uncontrolled diabetes, his most recent A1c was over 10, who is status post left below-knee amputation for prior osteomyelitis. He required a revision amputation approximately 1 year ago. He noted some left knee pain about 1 week ago. He subsequently noted some warmth and subsequent drainage in the coming days. He presented to [facility] approximately 5 days ago with purulent drainage from his left BKA stump. IV antibiotics were administered and the patient was hemodynamically stable shortly after admission. I saw the patient in consultation for management of his BKA stump. An MRI was obtained. MRI demonstrated findings of chronic osteomyelitis in the distal 2 cm of his remaining tibia. I recommended operative intervention. We discussed shortening his below-knee amputation versus converting to a an above-knee amputation. We discussed the risks and benefits of each. I expressed concern due to his diabetes of him healing a above-knee amputation as well as a revision below-knee amputation. He requested we attempt to preserve as much leg length as possible to allow for potential prosthetic use. The risk, benefits, alternatives to procedure were reviewed with the patient at length he agreed to proceed. He expressed understanding of the increased risk of residual or recurrent osteomyelitis performing the revision below-knee amputation. Description of procedure: Patient was identified in the preoperative holding area by name, medical record number, and date of . The operative extremity was marked. All questions answered patient satisfaction. Informed consent was confirmed. At time of his procedure, patient brought to the operative suite and positioned supine a standard operating table. General anesthesia was induced and laryngeal mask airway placed. The tube was secured. All bony prominences were well-padded. A well-padded pneumatic tourniquet was applied to left upper thigh but never inflated. We then prepped and draped the left lower extremity in a normal, sterile orthopedic fashion utilizing a Betadine prep. Patient was on scheduled vancomycin and cefepime, doses of each were given while he was in the operative suite as he was due for a scheduled dose of each. We performed a timeout with all parties in attendance in agreement the side, site, operation be performed. No concerns were voiced and elected proceed with surgery. I first marked an incision to ellipticized the prior BKA wound and scar. Approximately 3 mm of skin edges were debrided sharply with a 10 blade scalpel. There was a 4 x 4 millimeter wound noted over the distal lateral stump which was excised with the skin margins. I then dissected through the subcutaneous tissue with Bovie cautery down to the level of the fascia. The area of the wound and the subcutaneous tissue appeared benign. I dissected down to the level of the tibia. I elevated remaining periosteum circumferentially. I measured the distal 2 cm of the tibia, corresponding to the osteomyelitis on the MRI. I used a sagittal saw to shorten the tibia by 2 cm. Bone was sent for culture with surrounding soft tissue as well. I utilized a rasp to debride the medullary canal of the tibia. There was some concern for trace purulence in the tibial canal. Cancellous bone was thoroughly debrided in the tibial shaft. I then thoroughly irrigated the tibial shaft, wound with 2 L of normal saline solution. We then removed the contaminated drapes and changed our gloves. I utilized a rasp to smooth the bone edges. Hemostasis was excellent at this point. Remaining tissue appeared healthy and viable. Muscle was contractile. I then reapproximated the periosteum over top of the distal stump with #1 PDS suture. Deeper fascia was closed with #0 PDS. Skin was reapproximated with 2-0 Monocryl. Skin was finally closed with vinh. Prior to closing with vinh, I placed 1/4 inch Chino drain from the medial and lateral margins of the wound to allow for wound drainage. A sterile compression dressing was then applied. Patient was safely extubated in the operative suite and transferred to his hospital bed and subsequently to PACU in stable condition. Need for skilled client services assistant: Ana Roberts PA-C was critical to the outcome of the case. During the course of the procedure the physician client services assistant played a vital role. Her intimate knowledge of my steps in the procedure aided in safe and expedient completion of the procedure. The PA played a vital role in positioning particularly in obtaining the appropriate positioning. The PA was also vital in the retraction of soft tissues during the exposure and projecting vital structures. The PA was also vital and protecting soft tissues during times of bony cuts. She also played a vital role in closure with my direct supervision. Post Operative Plan: Weightbearing: Nonweightbearing left lower extremity. Antibiotics: Continue to schedule antibiotics per infectious disease. Plan is for 6 weeks IV antibiotics with a PICC line. DVT Prophylaxis: Plan to start Lovenox 40 mg subcutaneous daily starting tomorrow while in the hospital setting. Aspirin 81 mg twice daily upon discharge. Brady: None Dressing: Dry sterile dressing changes daily and as needed for saturation Drain: Plan to remove on postoperative day #1 or 2 depending on the amount of drainage X-Rays: None Follow-up: 3 weeks in my office
[2021-09-19] MEDS: Morphine 4 MG/ML Syringe IV ×2 (17:44→22:22)
[2021-09-19] MEDS: traMADol 50 MG Tablet PO ×2 (17:44→22:24)
[2021-09-19] MEDS: Insulin Lispro 100 UNIT/ML INSULN.PEN SC ×2 (17:45→22:39)
[2021-09-19 18:36] LABS: Bedside Glucose 264 mg/dL (74-106)
--- NOTE | 2021-09-19 18:38 | NURSING ---
called into room pt states his stump is bleed. pt sitting on side of bed with stump dependent over side of bed. small amount of blood noted on floor. dressing saturated with bright red bleeding. took dressing down. small amount of blood noted from both corners of incisioin. pressure held. Dr. Black notified, stated can change dressing or reinforce. informed will change dressing d/t taken all way down. Dr. Black stated if continues to bleed to call him - order placed. Dr. Black states most likely old blood from wound.pressure dressing placed. stump on 2 pillows. pt informed to use other side of bed to use urinal so do not depend his stump to cause more bleeding. pt states will try using other side of bed.
[2021-09-20 00:21] LABS: Bedside Glucose 272 mg/dL (74-106)
[2021-09-20 00:35] VITALS: BP 143/73; PULSE 88; RESP 18; TEMP 36.1; O2SAT 98
[2021-09-20] MEDS: Ondansetron 4 MG/2 ML Vial IV (00:39)
[2021-09-20] MEDS: 0.9% Saline Lock 10 ML Syringe IV ×2 (00:41→09:52)
[2021-09-20] MEDS: Acetaminophen 325 MG Tablet 650 MG PO (02:18)
[2021-09-20] MEDS: oxyCODONE 5 MG Tablet 10 MG PO ×2 (02:18→13:46)
[2021-09-20 03:16] LABS: Bedside Glucose 204 mg/dL (74-106)
[2021-09-20 05:51] LABS: Bedside Glucose 244 mg/dL (74-106)
[2021-09-20 05:57] LABS: Absolute Lymphocyte Count 1.73 X10^3/uL (0.83-4.51); Absolute Neutrophil Count 7.8 X10^3/uL (2.0-7.7); Basophil# 0.11 X10^3/uL; Eosinophil# 0.38 X10^3/uL; Eosinophils% 3.5 % (0-5); Hemoglobin 13.5 g/dL (13.0-16.5); Lymphocyte # 1.73 X10^3/ul (0.83-4.51); Lymphocyte % 16.2 % (19-41); Mean Corp Hgb Conc 32.9 g/dL (32-36); Mean Corpuscular Hgb 28.7 pg (27.0-32.0); Mean Platelet Vol. 10.7 fl (6.2-12.0); Monocyte# 0.72 X10^3/uL; Monocyte% 6.7 % (0-10); NRBC Flagged by Analyzer 0 % (0-5); Neutrophil # 7.75 X10^3/uL (2.7-7.7); Neutrophil % 72.4 % (47-70); Platelet Count 204 K/mm3 (150-450); RBC Distribution Width SD 45.1 fl (35.1-43.9); Red Blood Count 4.71 M/mm3 (4.6-6.2); White Blood Count 10.7 K/mm3 (4.4-11.0)
[2021-09-20] MEDS: traMADol 50 MG Tablet PO ×2 (06:00→11:40)
[2021-09-20] MEDS: Gabapentin 300 MG Capsule PO ×2 (06:03→13:46)
[2021-09-20] MEDS: Levothyroxine 25 MCG TABLET PO (06:10)
[2021-09-20 06:17] VITALS: BP 141/80; PULSE 82; RESP 18; TEMP 35.8; O2SAT 99
[2021-09-20 06:19] LABS: Anion Gap 3 (5-15); BUN 12 mg/dL (7-18); BUN/Creat Ratio 18.8 RATIO (10-20); Calcium,Total 8.8 mg/dL (8.5-10.1); Chloride 108 mmol/L (98-107); Creatinine, Serum 0.64 mg/dL (0.70-1.30); EST Glomerular Filtration Rate 143 mL/min (>60); Est Glom Filt Rate - Afr Amer 172 mL/min (>60); Estimated Creatinine Clearance 142.69 ml/min; Glucose 141 mg/dL (74-106); Potassium 4.1 mmol/L (3.5-5.1); Sodium Level 137 mmol/L (136-145)
[2021-09-20 06:56] LABS: Bedside Glucose 137 mg/dL (74-106)
[2021-09-20] MEDS: Vancomycin IV 1,000 MG/200 ML BAG 200 MG IV (07:28)
[2021-09-20 07:33] VITALS: BP 148/87; PULSE 85; RESP 18; TEMP 36.6; O2SAT 99
[2021-09-20] MEDS: Ferrous Sulfate 325 MG Tablet PO (07:42)
[2021-09-20] MEDS: Senna/Docusate Sodium 1 Tablet 2 TABLET PO (07:42)
[2021-09-20 08:57] LABS: Bedside Glucose 104 mg/dL (74-106)
[2021-09-20] MEDS: Morphine 4 MG/ML Syringe IV (09:52)
[2021-09-20] MEDS: Pantoprazole Sodium 40 MG Tablet PO ×2 (09:57)
[2021-09-20] MEDS: Lisinopril 20 MG Tablet PO (10:00)
--- NOTE | 2021-09-20 11:09 | WOUNDNOTE ---
wound photo: left leg
[2021-09-20 11:45] LABS: Bedside Glucose 210 mg/dL (74-106)
--- NOTE | 2021-09-20 12:48 | PCM.PN.ID ---
Physical Exam Narrative Had bleeding from leg after OR. No fever, no n/v/d. Const alert and no apparent distress General Appearance: cooperative Resp normal air movement and clear to auscultation bilaterally Cardio regular rate and regular rhythm GI soft to palpation, non-tender and non-distended Skin Skin Narrative: Leg wrapped ID ID: Route of nutrition/ use of supplements: [] Nutritional Intake: [] IV Site: [] Brady Catheter: [] Assessment & Plan Assessment/Plan (1) MRSA (methicillin resistant staph aureus) culture positive: PLAN: L stump MRSA osteo - Cont vanc, cefepime. Ortho following. Covid vaccine x3. Pt wants to be aggressive with management given h/o recurrent infections. Ongoing drainage from stump. OR /. Ok for discharge with picc and 6 weeks iv dapto (for easier once daily dosing), stop date 10/31/21, weekly bmp, cbc, LFT, CK, and esr. ID followup in 2 weeks. Will follow, d/w top case assembler and primary team. (2) DM type 1 (diabetes mellitus, type 1): QUALIFIERS: Diabetes mellitus complication status: with other specified complication Qualified Code(s): E10.69 - Type 1 diabetes mellitus with other specified complication (3) PAD (peripheral artery disease):
--- NOTE | 2021-09-20 13:10 | PCM.DC ---
Discharge Instructions Diet Discharge Diet: No restrictions Activity Discharge Activity: Return to Normal Activity Weight Bearing Status: Weight bearing as tolerated Dressing / Incision Call your doctor if you observe: Fever of 101 or Higher, Numbness or Tingling, Shortness of breath, Dizziness, Chest pain, Increased palpitations (irregular heartbeat) and Calf discomfort Follow Up Care Please Follow Up With: Primary care provider When: Within the next two weeks. Test Results: Test results from this visit will be discussed in further detail at your follow-up appointment, if applicable. Discharge Plan Admission Admit Date/Time: 09/14/21 23:27 Primary Reason for Your Visit: LLE infection Attending Provider: Alfonso Monroe Primary Care Provider: Samson Garcia Consulting Providers: Orlando Khoury ; Shiv Garcia Discharge Orders/Prescriptions Prescriptions: New daptomycin 500 mg recon soln 600 mg IV Q24H Qty: 40 RF: 0 oxycodone 5 mg tablet 5 mg PO Q6H 5 Days Qty: 20 RF: 0 aspirin 81 mg tablet,chewable 81 mg PO BID Qty: 60 RF: 0 Continued lisinopril 10 MG tablet 10 mg PO DAILY RF: 0 insulin lispro 100 UNIT/ML insulin pen See Protocol unit subcut TID RF: 0 pantoprazole 40 MG tablet 40 mg PO DAILY RF: 0 insulin glargine 100 UNIT/ML solution 30 unit SQ QHS RF: 0 gabapentin 300 MG capsule 300 mg PO TID RF: 0 levothyroxine 25 mcg tablet 25 mcg PO DAILY RF: 0 ferrous sulfate [FeroSul] 325 mg (65 mg iron) tablet 325 mg PO DAILY RF: 0 Other Ambulatory Orders: CBC W/Diff, Automated (Routine) Timeframe: 1 Week Facility: [facility] - Location: Laboratory Ordered By: Remy CHILDS Comprehensive Metabolic Profil (Routine) Timeframe: 1 Week Facility: [facility] - Location: Laboratory Ordered By: Remy CHILDS CPK Total, Creatine Kinase (Routine) Timeframe: 1 Week Facility: [facility] - Location: Laboratory Ordered By: Remy CHILDS Erythrocyte Sed Rate (Routine) Timeframe: 1 Week Facility: [facility] - Location: Laboratory Ordered By: Remy CHILDS Referrals / Follow Up: Samson Garcia MD [Primary Care Provider] - Within 2 Weeks Jayy Black DO [STAFF PHYSICIAN] - Within 2 Weeks Orlando Khoury MD [STAFF PHYSICIAN] - Within 2 Weeks Disposition Disposition (needs filled in before D/C Order can be placed): Home, Self Care
--- NOTE | 2021-09-20 13:15 | WOUNDNOTE ---
Left stump dressing remains dry at this time, there is no strikethrough drainage noted on the dressing or MORGAN wrap. pt states the doctors have been in and plan to send him home today on IV antibiotics. pt to have PICC line placed later today.
--- NOTE | 2021-09-20 13:43 | CASEMGMT ---
Addendum entered by Mackenzie Grimaldo 09/20/21 16:21: TC to Mónica at [facility], she is aware pt is currently getting picc inserted. Will fax picc info when completed. Addendum entered by Mackenzie Grimaldo 09/20/21 15:53: Pt requests meds be delivered to room. [facility] to [facility], they were already aware and pharmacist on phone with him now for payment. Addendum entered by Mackenzie Grimaldo 09/20/21 15:48: Provided pt with transportation information. Pt states he does not need this now but may in the future. Addendum entered by Mackenzie Grimaldo 09/20/21 15:39: RN CM into pt room, pt with questions regarding [facility]. Pt states he is not able to do his IV or wound care. He asks if [facility] will come daily to perform. Discussed with pt expectation of HHC and that they will not come daily to perform IV, that pt needs to have a cg or do on own. Pt states he has done in the past. Made pt aware that [facility] will come out to initially teach him how to do IV with extension tubing, once he is independent they will change picc dressing and draw labs weekly. Aware that the nurse will also be monitoring wound. Discussed that if pt does not have a cg or able to do himself, then we need to discuss a higher level of care. Pt then states that he is able to do the care. Also discussed with patient that should he go home and not be able to handle his care to notify [facility]. Pt will follow up with the [facility] as well. Discussed the delivery of IV medication. Answered all of patient questions. Pt states that he feels better about his dc now. He denies further needs. Original Note: TC to Mónica at [facility], she is aware picc will be placed at 3:30. Faxed rx for IV at this time. Will fax picc info when available. TC graeme Buck at [facility], they will see pt tomorrow. Aware of dc today.
[2021-09-20 13:45] VITALS: BP 156/83; PULSE 93; RESP 18; TEMP 36.4; O2SAT 100
--- NOTE | 2021-09-20 14:56 | DS.PCM_ITS ---
Documented by User: Remy CHILDS 09/20/21 15:23 Providers Date of Admission: 09/14/21 Date of Discharge: 09/20/21 Primary Care Physician: Dr. Samson Garcia MD Consultations 09/15/21 00:29 Consult: Orthopedics Routine Consulting Provider: Shiv Garcia Reason for Consult: Wound infection EMERGENT Consult: No Notified: Yes Date Notified: 09/15/21 Time Notified: 08:29 Method of Notification: spoke in person 09/15/21 09:28 Consult: Infectious Disease Routine Consulting Provider: Orlando Khoury Reason for Consult: left BKA stump infection, Osteo? EMERGENT Consult: No Notified: Yes Date Notified: 09/15/21 Time Notified: 09:28 Method of Notification: Text 09/17/21 15:40 Consult: Onc/Wound/global chief creative officer Routine Comment: Reason for Consult:: left stump wound Reason For Visit: LEFT LEG STUMP INFECTION Diagnosis Discharge Diagnosis (1) MRSA (methicillin resistant staph aureus) culture positive: Status: Resolved Code(s): Z22.322 - Carrier or suspected carrier of Methicillin resistant Staphylococcus aureus (2) DM type 1 (diabetes mellitus, type 1): Status: Chronic Code(s): E10.9 - Type 1 diabetes mellitus without complications Qualifiers: Diabetes mellitus complication status: with other specified complication Qualified Code(s): E10.69 - Type 1 diabetes mellitus with other specified complication (3) PAD (peripheral artery disease): Status: Ruled-out Code(s): I73.9 - Peripheral vascular disease, unspecified Medications at Discharge Home Medications lisinopril 10 mg PO DAILY 10/04/19 insulin lispro See Protocol SUBCUT TID 01/25/20 gabapentin 300 mg PO TID 08/13/20 insulin glargine 30 unit SQ QHS 08/13/20 pantoprazole 40 mg PO DAILY 08/13/20 ferrous sulfate [FeroSul] 325 mg PO DAILY 09/15/21 levothyroxine 25 mcg PO DAILY 09/15/21 aspirin 81 mg PO BID #60 tab 09/20/21 daptomycin 600 mg IV Q24H #40 ea 09/20/21 oxycodone 5 mg PO Q6H 5 Days #20 tab 09/20/21 Hospital Course Summary of Care Provided Minutes Spent on Discharge: 20 Hospital Course: Patient is a 46-year-old male who was admitted to [facility] on 09/14/2021 for evaluation and management of left lower extremity cellulitis status post BKA amputation complicated by uncontrolled diabetes mellitus type 1. Course and management as below. 1) LLE Cellulitis/Osteomylitis, s/p BKA. MRI demonstrated osteomyelitis and wound cultures were positive for MRSA. Patient underwent debridement and revision of left lower extremity stump on 09/19/32. Patient is to follow-up with orthopedics within the next 2 weeks and start taking aspirin 81 mg p.o. twice daily for DVT prophylaxis. Patient continued on meropenem till 10/31/2021 based off of ID recommendations. Patient will follow up with ID within the next 2 weeks and obtain weekly BMP, CMP, CK and ESR until told otherwise by infectious disease. 2) uncontrolled diabetes mellitus type 1 Patient noncompliant with home diabetic regimen. Hemoglobin A1c 10.8. Patient was advised importance of complying with home diabetic regimen. Patient's home diabetic regimen was continued and an appointment with the [place] was made on patient's behalf for outpatient follow-up with a primary care provider. 3) history of left lower extremity BKA Results of right Charcot foot is complicated by uncontrolled diabetes mellitus type 1. Plan as above. 4) HTN Continue lisinopril. 5) hypothyroidism Continue Synthroid. 6) GERD Continue PPI. Patient seen by Reym Welsh PA-C, under the supervision of Dr. Monroe. Time spent on patient care: 20 minutes. Physical Exam Narrative Patient is a 46-year-old male comfortably resting in bed, alert and orient x3. Denies development of any new symptoms overnight. Does not appear in acute distress. Const alert, oriented x3 and no apparent distress HEENT normocephalic, head/scalp atraumatic and hearing grossly normal bilaterally Eyes PERRL and conjunctivae normal Neck no lymphadenopathy, supple and no JVD Resp normal respiratory effort, no retractions and no use of accessory muscles Cardio regular rate, regular rhythm and no JVD GI normal to inspection, nondistended, normoactive bowel sounds Extremity normal to inspection Skin no rashes or lesions noted Neuro CN's II-XII intact bilaterally Psych affect normal Weight / BMI Weight Weight: 162 lb 11.218 oz Body Mass Index (BMI) 24.0 ABG / Lab / Microbiology Data Result Diagrams: 09/20/21 05:46 09/20/21 05:46 Laboratory: Laboratory Results - last 24 hr 09/19/21 16:32: POC Glucose 244 H 09/19/21 17:42: POC Glucose 264 H 09/19/21 22:37: POC Glucose 272 H 09/20/21 03:01: POC Glucose 204 H 09/20/21 05:46: WBC 10.7, RBC 4.71, Hgb 13.5, Hct 41.0, MCV 87.0, MCH 28.7, MCHC 32.9, RDW Std Deviation 45.1 H, RDW Coeff of Candace 14.0, Plt Count 204, MPV 10.7, Immature Gran % (Auto) 0.200, Neut % (Auto) 72.4 H, Lymph % (Auto) 16.2 L, [place] % (Auto) 6.7, Eos % (Auto) 3.5, Baso % (Auto) 1.0, Absolute Neuts (auto) 7.8 H, Absolute Lymphs (auto) 1.73, Nucleated RBC % 0 09/20/21 05:46: Sodium 137, Potassium 4.1, Chloride 108 H, Carbon Dioxide 26.0, Anion Gap 3 L, BUN 12, Creatinine 0.64 L, Estim Creat Clear Calc 142.69, Est GFR (MDRD) Af Amer 172, Est GFR (MDRD) Non-Af 143, BUN/Creatinine Ratio 18.8, Glucose 141 H, Calcium 8.8 09/20/21 06:12: POC Glucose 137 H 09/20/21 08:49: POC Glucose 104 09/20/21 11:34: POC Glucose 210 H Microbiology: Microbiology 09/19/21 15:05 Tissue - Leg, Left Gram Stain - Final 09/19/21 15:05 Tissue - Leg, Left Wound Culture - Preliminary No growth-Final to follow 09/19/21 15:05 Wound - Leg, Left Gram Stain - Final 09/19/21 15:05 Wound - Leg, Left Wound Culture - Preliminary No growth-Final to follow 09/14/21 21:58 Blood Culture (Wb) - Anticubital Left Blood Culture - Final No growth in 5 days. 09/14/21 22:00 Blood Culture (Wb) - Anticubital Right Blood Culture - Final No growth in 5 days. 09/15/21 12:30 Wound - Knee Gram Stain - Final 09/15/21 12:30 Wound - Knee Wound Culture - Final Meth. resistant Staph. aureus D/C Instructions Discharge Diet: No restrictions Weight Bearing Status: Weight bearing as tolerated Call your doctor if you observe: Fever of 101 or Higher, Numbness or Tingling, Shortness of breath, Dizziness, Chest pain, Increased palpitations (irregular heartbeat) and Calf discomfort Please Follow Up With: Primary care provider When: Within the next two weeks. Meaningful Use Info Meaningful Use Diagnoses (Choose all that apply): None applicable Discharge Plan Admission Admit Date/Time: 09/14/21 23:27 Primary Reason for Your Visit: LLE infection Attending Provider: Alfonso Monroe Primary Care Provider: Samson Garcia Consulting Providers: Orlando Khoury ; Shiv Garcia Discharge Orders/Prescriptions Prescriptions: New daptomycin 500 mg recon soln 600 mg IV Q24H Qty: 40 RF: 0 oxycodone 5 mg tablet 5 mg PO Q6H 5 Days Qty: 20 RF: 0 aspirin 81 mg tablet,chewable 81 mg PO BID Qty: 60 RF: 0 Continued lisinopril 10 MG tablet 10 mg PO DAILY RF: 0 insulin lispro 100 UNIT/ML insulin pen See Protocol unit subcut TID RF: 0 pantoprazole 40 MG tablet 40 mg PO DAILY RF: 0 insulin glargine 100 UNIT/ML solution 30 unit SQ QHS RF: 0 gabapentin 300 MG capsule 300 mg PO TID RF: 0 levothyroxine 25 mcg tablet 25 mcg PO DAILY RF: 0 ferrous sulfate [FeroSul] 325 mg (65 mg iron) tablet 325 mg PO DAILY RF: 0 Other Ambulatory Orders: CBC W/Diff, Automated (Routine) Timeframe: 1 Week Facility: [facility] - Location: Laboratory Ordered By: Remy CHILDS Comprehensive Metabolic Profil (Routine) Timeframe: 1 Week Facility: [facility] - Location: Laboratory Ordered By: Remy CHILDS CPK Total, Creatine Kinase (Routine) Timeframe: 1 Week Facility: [facility] - Location: Laboratory Ordered By: Remy CHILDS Erythrocyte Sed Rate (Routine) Timeframe: 1 Week Facility: [facility] - Location: Laboratory Ordered By: Remy CHILDS Referrals / Follow Up: Samson Garcia MD [Primary Care Provider] - Within 2 Weeks Jayy Black DO [STAFF PHYSICIAN] - Within 2 Weeks Orlando Khoury MD [STAFF PHYSICIAN] - Within 2 Weeks Disposition Disposition (needs filled in before D/C Order can be placed): Home, Self Care Documented by User: Dr. Alfonso Monroe DO 09/20/21 17:46 Providers Date of Admission: 09/14/21 Reason For Visit: LEFT LEG STUMP INFECTION Medications at Discharge Home Medications lisinopril 10 mg PO DAILY 10/04/19 insulin lispro See Protocol SUBCUT TID 01/25/20 gabapentin 300 mg PO TID 08/13/20 insulin glargine 30 unit SQ QHS 08/13/20 pantoprazole 40 mg PO DAILY 08/13/20 ferrous sulfate [FeroSul] 325 mg PO DAILY 09/15/21 levothyroxine 25 mcg PO DAILY 09/15/21 aspirin 81 mg PO BID #60 tab 09/20/21 daptomycin 600 mg IV Q24H #40 ea 09/20/21 oxycodone 5 mg PO Q6H 5 Days #20 tab 09/20/21 ABG / Lab / Microbiology Data Result Diagrams: 09/20/21 05:46 09/20/21 05:46 Discharge Plan Admission Admit Date/Time: 09/14/21 23:27 Primary Reason for Your Visit: LLE infection Attending Provider: Alfonso Monroe Primary Care Provider: Samson Garcia Consulting Providers: Orlando Khoury ; Shiv Garcia Discharge Orders/Prescriptions Prescriptions: New daptomycin 500 mg recon soln 600 mg IV Q24H Qty: 40 RF: 0 oxycodone 5 mg tablet 5 mg PO Q6H 5 Days Qty: 20 RF: 0 aspirin 81 mg tablet,chewable 81 mg PO BID Qty: 60 RF: 0 Continued lisinopril 10 MG tablet 10 mg PO DAILY RF: 0 insulin lispro 100 UNIT/ML insulin pen See Protocol unit subcut TID RF: 0 pantoprazole 40 MG tablet 40 mg PO DAILY RF: 0 insulin glargine 100 UNIT/ML solution 30 unit SQ QHS RF: 0 gabapentin 300 MG capsule 300 mg PO TID RF: 0 levothyroxine 25 mcg tablet 25 mcg PO DAILY RF: 0 ferrous sulfate [FeroSul] 325 mg (65 mg iron) tablet 325 mg PO DAILY RF: 0 Other Ambulatory Orders: CBC W/Diff, Automated (Routine) Timeframe: 1 Week Facility: [facility] - Location: Laboratory Ordered By: Remy CHILDS Comprehensive Metabolic Profil (Routine) Timeframe: 1 Week Facility: [facility] - Location: Laboratory Ordered By: Remy CHILDS CPK Total, Creatine Kinase (Routine) Timeframe: 1 Week Facility: [facility] - Location: Laboratory Ordered By: Remy CHILDS Erythrocyte Sed Rate (Routine) Timeframe: 1 Week Facility: [facility] - Location: Laboratory Ordered By: Remy CHILDS Referrals / Follow Up: Samson Garcia MD [Primary Care Provider] - Within 2 Weeks Jayy Black DO [STAFF PHYSICIAN] - Within 2 Weeks Orlando Khoury MD [STAFF PHYSICIAN] - Within 2 Weeks Disposition Disposition (needs filled in before D/C Order can be placed): Home, Self Care Charges/Coding Addendum Addendum: Patient was seen and examined today, a PICC line was inserted for home antibiotic usage and arrangements were made for home health to see the patient. I talked with infectious diseases as well as orthopedic surgery today. I think the patient is medically stable at this time for discharge home. On examination he appeared in good health and spirits. Vital signs as documented. Skin warm and dry, I did not remove the bandage over the patient's left below the knee amputation stump site, pictures shown to me today by wound care shows that the area is nonreddened there was quite a bit of serosanguineous discharge this morning when the bandage was changed. Neck without JVD, neck was supple, trachea midline, thyroid was normal. Lungs clear bilaterally, normal air movement was noted. Heart exam notable for regular rhythm, normal sounds and absence of murmurs, rubs or gallops. Abdomen unremarkable and without evidence of organomegaly, masses, or abdominal aortic enlargement. Bowel sounds are present, abdomen is not distended. Extremities patient has a Charcot foot on the right, the left below the knee stump where the surgery was carried out was not examined today. The dressing is over the area.. Neuro: Cranial nerves II through XII are grossly intact, no focal motor deficits were noted, sensation to light touch and pinprick intact, motor exam 5/5 throughout. Psych: Patient is alert and oriented x3, he does not appear anxious or depressed, he does not appear agitated. #1 osteomyelitis of the left tibial stump-patient will remain on his present antibiotics per infectious diseases, orthopedic surgery is seeing the patient-he underwent surgical debridement today of the left tibial stump site patient appears stable for discharge home at this time and arrangements have been made for antibiotic administration at home. Patient had a PICC line inserted today #2 cellulitis of the left leg amputation stump-according to orthopedic surgery, there was minimal cellulitis in the left stump area, most of the problem was osteomyelitis of the tibia. #3 uncontrolled type 1 diabetes-patient will need close follow-up as an outpatient with an coder, I encouraged the patient that he must get vigilant on caring for his type 1 diabetes. Blood sugars will be monitored, sliding scale insulin is being used to control his blood sugar, arrangements were made for the patient to follow-up with a PCP in their office-he currently has a physician coming to his house which I do not think is adequate care. #4 essential hypertension-patient will remain on his present medications #5 hypothyroidism-patient will remain on Synthroid at this time I have reviewed Remy Welsh's discharge summary including his medical assessment and plan of care and endorse it. Total clinical time spent by myself today addressing the patient's medical issues, reviewing all of his data, and collaborating with the patient's care team: 30 minutes Visit Charges Inpatient E&M: 21783 Disch Hosp
--- NOTE | 2021-09-20 16:46 | CASEMGMT ---
Social Work Note BASILIO placed a call to pt's CM Lynn Bernard at [facility] and updated her pt to discharge home today. Lynn requests discharge paperwork be faxed to [phone]. BASILIO faxed discharge paperwork to Lynn at [facility]. Naomi Garner HAM FACER, SPORTS TEACHER
[2021-09-20 17:21] VITALS: BP 147/84; PULSE 98; RESP 18; TEMP 37; O2SAT 99
[2021-09-20 20:11] LABS: Bedside Glucose 156 mg/dL (74-106)
--- NOTE | 2021-09-21 13:18 | CASEMGMT ---
Faxed [facility]SI the Picc insertion form at this time.
== END 2021-09-20 18:16 | disposition home or self-care (01) | DRG 617 ==
LOC: ED 23:38 → MS3 09-15 01:30
PROVIDERS: Anesthesiology; Internal Medicine; Internal Medicine Infectious Disease; Nurse Practitioner Family; Physician Assistant; Student in an Organized Health Care Education/Training Program; Admitting Provider Hospitalist; Emergency Provider Emergency Medicine; PCP Internal Medicine; Visit Provider Internal Medicine
PROC: 0Y6J0Z3 Detachment at Left Lower Leg, Low, Open Approach (ICD-10-PCS; principal; 2021-09-19 13:25)
DX: E10.69 Type 1 diabetes mellitus with other specified complication (principal); T87.44 Infection of amputation stump, left lower extremity; M86.662 Other chronic osteomyelitis, left tibia and fibula; B95.62 Methicillin resistant Staphylococcus aureus infection as the cause of diseases classified elsewhere; L03.116 Cellulitis of left lower limb; E10.51 Type 1 diabetes mellitus with diabetic peripheral angiopathy without gangrene; E10.65 Type 1 diabetes mellitus with hyperglycemia; Z89.512 Acquired absence of left leg below knee; E10.610 Type 1 diabetes mellitus with diabetic neuropathic arthropathy; D64.9 Anemia, unspecified; K21.9 Gastro-esophageal reflux disease without esophagitis; I10 Essential (primary) hypertension; E03.9 Hypothyroidism, unspecified; M19.90 Unspecified osteoarthritis, unspecified site; F17.210 Nicotine dependence, cigarettes, uncomplicated; Z79.4 Long term (current) use of insulin; Z79.899 Other long term (current) drug therapy; G89.29 Other chronic pain; H91.93 Unspecified hearing loss, bilateral
CPT/HCPCS: 36415; 36569; 73590; 73718; 80048; 80053; 80076; 80202; 82962; 83036; 84443; 85025; 85652; 86140; 86850; 86900; 86901; 87015; 87040; 87070; 87075; 87077; 87102; 87116; 87176; 87186; 87205; 87206; 93005; 97802; 97803; 99285; J0878; J7030; J7040; J7050; A4216; J2405; J3490

== ENCOUNTER 2021-09-24 20:05 | Emergency (ER) | payer MEDICARE, MEDICAID, SELFPAY ==
[2021-09-24 20:05] VITALS: BP 171/95; PULSE 95; RESP 16; TEMP 36.8; O2SAT 99; BMI 24.7
--- NOTE | 2021-09-24 20:27 | EX.ED.DYSGE1 ---
HPI History of Present Illness Chief Complaint: Abn Labs Informant: patient Onset/Context/Timing Onset: Today Narrative Narrative: 46-year-old male history of slightly blunt instrument diabetes, hypertension. Had a left below the knee amputation revised a week ago. He is on home IV antibiotics and was discharged on Thursday. The revision occurred due to chronic infection. Today they can draw labs his hemoglobin came back at 5.6 and they sent him in to be evaluated. He denies any symptoms. He is never needed transfusion. He denies any melena or hematemesis. He denies any bruising. He is on no blood thinners. Prior similar symptoms: No Recent Illness/Hospitalization: Yes [facility] Medical History Alcohol abuse Anemia Anxiety Asthma Back pain due to injury Cellulitis (~09/15/21) Charcot ankle Charcot foot due to diabetes mellitus Chest pain Chronic pain Current use of insulin Depression Diabetes Diabetes mellitus Gastroparesis GERD (gastroesophageal reflux disease) Hearing loss, left Hearing loss, right Hepatitis History of left below knee amputation History of stress test Hypertension Hypothyroidism Migraines Neuropathy Osteoporosis Pancreatitis Restless legs Rheumatoid arthritis Seizures Smoker Stroke Substance abuse Vision loss of left eye Vision loss of right eye Home Medications lisinopril 10 mg PO DAILY 10/04/19 [History Last Taken 09/14/21 13:00] insulin lispro See Protocol SUBCUT TID 01/25/20 [History Last Taken 3 Days Ago ~08/10/20] gabapentin 300 mg PO TID 08/13/20 [History Last Taken 09/14/21 13:00] insulin glargine 30 unit SQ QHS 08/13/20 [History Last Taken 09/14/21 20:30] pantoprazole 40 mg PO DAILY 08/13/20 [History Last Taken 09/14/21 13:00] ferrous sulfate [FeroSul] 325 mg PO DAILY 09/15/21 [History Last Taken 09/14/21 13:00] levothyroxine 25 mcg PO DAILY 09/15/21 [History Last Taken 09/14/21 13:00] aspirin 81 mg PO BID #60 tab 09/20/21 [Rx Last Taken Unknown] daptomycin 600 mg IV Q24H #40 ea 09/20/21 [Rx Last Taken Unknown] oxycodone 5 mg PO Q6H 5 Days #20 tab 09/20/21 [Rx Last Taken Unknown] Allergy/AdvReac Type Severity Reaction Status Date / Time No Known Allergies Allergy Verified 09/24/21 20:08 Family History Other Cancer Diabetes Heart disease Surgical History H/O tooth extraction S/P BKA (below knee amputation) Social History Smoking Status: Heavy Smoker (>10/day) ROS ROS ED ROS Narrative Denies recent illness. Review of Systems ROS Unobtainable: Denies due to encephalopathy Constitutional Constitutional ED: Denies fever(s) Eyes Eyes: Denies change in vision ENT ENT ED: Denies ear pain Cardiovascular Cardiovascular: Denies chest pain Respiratory/Chest Respiratory/Chest: Denies dyspnea Gastrointestinal Gastrointestinal: Denies abdominal pain Genitourinary Genitourinary ED: Denies dysuria Musculoskeletal Musculoskeletal: Denies myalgias Integumentary Denies rash Neurologic Neurologic: Denies headache(s) Psychiatric Psychiatric: Denies depression Endocrine Endocrinology: Denies polyuria Allergic/Immunologic Allergic/Immunologic ED: Denies urticaria EXAM Physical Exam Narrative Exam Narrative: 46-year-old male no acute distress vital signs stable afebrile. HEENT exam unremarkable. Moist with memories. Lungs are clear equal symmetrical. Heart regular rate and rhythm no murmur. Rate about 90. Abdomen soft nontender. Moving all 4 extremities. Left below the knee amputation. Dressing in place. No red streaks. Back nontender. Neurologically is awake and alert. Const Vital Signs: 09/24/21 20:05 09/24/21 20:09 Temperature 98.2 F Temperature Source Oral Pulse Rate 95 Respiratory Rate 16 Respiratory Effort Normal Non-Labored Respiratory Pattern Normal Blood Pressure 171/95 H Blood Pressure Mean 120 Pulse Ox 99 Oxygen Delivery Method Room Air Positive well nourished and well developed; Negative for obese, cachectic, contractures or unkempt General Appearance ED: well developed and NAD; Negative for unkempt, cachectic, contractures, cyanotic or diaphoretic Nutritional Appearance: Negative for cachectic or obese HEENT Reports moist mucous membranes Negative for trauma or tenderness Eyes PERRL and EOMs intact bilaterally Neck no lymphadenopathy, supple and no JVD General: Negative for tenderness Chest Wall inspection of chest normal and palpation of chest normal Resp normal respiratory effort and clear to auscultation bilaterally Effort and Inspection: Negative for pain with movement Auscultation: Negative for rales, rhonchi or wheezes Cardio regular rate, regular rhythm, S1 normal heart sound, S2 normal heart sound and no murmurs GI normal to inspection, nondistended, normoactive bowel sounds, non-tender, non-distended and no masses Inspection: Negative for abdominal distention Auscultation: normoactive bowel sounds Palpation: soft; Negative for tender, guarding or rebound tenderness present Back/Spine no CVA tenderness General Back: Negative for CVA tenderness Extremity normal to inspection Extremity Narrative: Left below the knee amputation revision. Dressing in place. Neuro oriented x3 Sensorium / Orientation: alert and orientation impaired; Negative for lethargic or stuporous Motor Exam: strength 5/5 throughout Psych mental status grossly normal Appearance: Negative for unkempt Mood & Affect: Negative for depressed or tearful Skin no rashes or lesions noted and no wounds MDM MDM MDM Narrative Medical decision making narrative: 46-year-old sent in for an abnormal lab. He has no signs of any significant blood loss. He is stable on exam. This may be an erroneous lab. We will repeat a CBC and a BMP due to his diabetes. Repeat exam patient is doing well at 9 PM. He and I discussed all his labs. I think the one earlier today was erroneous. I explained to him his blood sugar and he will follow up with his doctors as scheduled. Lab Data Attestation: I reviewed the patient's lab results. Lab results narrative: CBC shows a white count of 10. H&H of 11.6 and 34.8. Platelet count of 210. This is much more consistent with the patient not having any symptoms and his normal blood counts are around 13. Chemistries unremarkable gap Normal BUN and creatinine glucose of 271 he is diabetic. Labs: Laboratory Results - last 24 hr 09/24/21 09/24/21 20:30 20:30 WBC 10.4 RBC 3.97 L Hgb 11.6 L Hct 34.8 L MCV 87.7 MCH 29.2 MCHC 33.3 RDW Std Deviation 42.9 RDW Coeff of Candace 13.4 Plt Count 210 MPV 10.8 Sodium 138 Potassium 4.2 Chloride 107 Carbon Dioxide 30.0 Anion Gap 1 L BUN 19 H Creatinine 0.77 Estim Creat Clear Calc 118.60 Est GFR (MDRD) Af Amer 139 Est GFR (MDRD) Non-Af 115 BUN/Creatinine Ratio 24.7 H Glucose 271 H Calcium 9.1 Discharge Plan Triage Chief Complaint: Abn Labs ED Provider: Esteban Tam Dx/Rx/DC Orders Clinical Impression: Abnormal laboratory test, History of type 1 diabetes mellitus, History of below-knee amputation of left lower extremity Prescriptions: No Action lisinopril 10 MG tablet 10 mg PO DAILY RF: 0 insulin lispro 100 UNIT/ML insulin pen See Protocol unit subcut TID RF: 0 pantoprazole 40 MG tablet 40 mg PO DAILY RF: 0 insulin glargine 100 UNIT/ML solution 30 unit SQ QHS RF: 0 gabapentin 300 MG capsule 300 mg PO TID RF: 0 levothyroxine 25 mcg tablet 25 mcg PO DAILY RF: 0 ferrous sulfate [FeroSul] 325 mg (65 mg iron) tablet 325 mg PO DAILY RF: 0 daptomycin 500 mg recon soln 600 mg IV Q24H Qty: 40 RF: 0 oxycodone 5 mg tablet 5 mg PO Q6H 5 Days Qty: 20 RF: 0 aspirin 81 mg tablet,chewable 81 mg PO BID Qty: 60 RF: 0 Primary Care Provider: Samson Garcia Referrals: Samson Garcia MD [Primary Care Provider] - As Needed Activity Restrictions/Additional Instructions: I think the earlier lab draw was in error. Tonight your hemoglobin was 11.6. Follow-up with your doctors as scheduled and as needed. Disposition Disposition: Home, Self Care
[2021-09-24 20:41] LABS: Hematocrit 34.8 % (40-54); Hemoglobin 11.6 g/dL (13.0-16.5); Mean Corp Hgb Conc 33.3 g/dL (32-36); Mean Corpuscular Hgb 29.2 pg (27.0-32.0); Mean Corpuscular Volume 87.7 fL (80-94); Mean Platelet Vol. 10.8 fl (6.2-12.0); Platelet Count 210 K/mm3 (150-450); RBC Distribution Width CV 13.4 % (11.6-14.6); RBC Distribution Width SD 42.9 fl (35.1-43.9); Red Blood Count 3.97 M/mm3 (4.6-6.2); White Blood Count 10.4 K/mm3 (4.4-11.0)
[2021-09-24 20:55] LABS: Anion Gap 1 (5-15); BUN 19 mg/dL (7-18); BUN/Creat Ratio 24.7 RATIO (10-20); Calcium,Total 9.1 mg/dL (8.5-10.1); Chloride 107 mmol/L (98-107); Creatinine, Serum 0.77 mg/dL (0.70-1.30); EST Glomerular Filtration Rate 115 mL/min (>60); Est Glom Filt Rate - Afr Amer 139 mL/min (>60); Glucose 271 mg/dL (74-106); Potassium 4.2 mmol/L (3.5-5.1); Sodium Level 138 mmol/L (136-145)
[2021-09-24] MEDS: oxyCODONE 5 MG Tablet 10 MG PO (21:07)
[2021-09-24 21:44] VITALS: BP 168/74; PULSE 79; RESP 16; O2SAT 98
== END 2021-09-24 21:45 | disposition home or self-care (01) ==
PROVIDERS: Emergency Provider Emergency Medicine; PCP Internal Medicine; Visit Provider Emergency Medicine
DX: R79.9 Abnormal finding of blood chemistry, unspecified (principal); T87.44 Infection of amputation stump, left lower extremity; M06.9 Rheumatoid arthritis, unspecified; E10.40 Type 1 diabetes mellitus with diabetic neuropathy, unspecified; Z79.4 Long term (current) use of insulin; I10 Essential (primary) hypertension; E03.9 Hypothyroidism, unspecified; H91.93 Unspecified hearing loss, bilateral; K21.9 Gastro-esophageal reflux disease without esophagitis; F17.200 Nicotine dependence, unspecified, uncomplicated; Z79.82 Long term (current) use of aspirin; Z79.890 Hormone replacement therapy; Z79.899 Other long term (current) drug therapy
CPT/HCPCS: 80048; 80076; 85027; 85652; 99284; A4216

== ENCOUNTER 2021-10-14 13:30 | Outpatient (RCR) | payer MEDICARE, MEDICAID, SELFPAY ==
[2021-09-29 16:53] LABS: Absolute Lymphocyte Count 1.63 X10^3/uL (0.83-4.51); Absolute Neutrophil Count 6.1 X10^3/uL (2.0-7.7); Basophil# 0.07 X10^3/uL; Basophil% 0.8 % (0-1); Eosinophil# 0.44 X10^3/uL; Hematocrit 36.9 % (40-54); Hemoglobin 12.6 g/dL (13.0-16.5); Lymphocyte # 1.63 X10^3/ul (0.83-4.51); Lymphocyte % 18.4 % (19-41); Mean Corp Hgb Conc 34.1 g/dL (32-36); Mean Corpuscular Hgb 29.8 pg (27.0-32.0); Mean Corpuscular Volume 87.2 fL (80-94); Mean Platelet Vol. 11.7 fl (6.2-12.0); Monocyte# 0.55 X10^3/uL; Monocyte% 6.2 % (0-10); NRBC Flagged by Analyzer 0 % (0-5); Neutrophil # 6.14 X10^3/uL (2.7-7.7); Neutrophil % 69.3 % (47-70); Platelet Count 243 K/mm3 (150-450); RBC Distribution Width CV 13.6 % (11.6-14.6); RBC Distribution Width SD 42.7 fl (35.1-43.9); Red Blood Count 4.23 M/mm3 (4.6-6.2); White Blood Count 8.9 K/mm3 (4.4-11.0)
[2021-09-29 16:54] LABS: Erythrocyte Sedimentation Rate 31 mm/hr (0-20)
[2021-09-29 17:05] LABS: AST(SGOT) 15 U/L (15-37); Alanine Aminotransfer ALT/SGPT 14 U/L (16-61); Albumin, Serum 3.1 g/dL (3.2-5.0); Alkaline Phosphatase 83 U/L (45-117); Anion Gap 5 (5-15); BUN 12 mg/dL (7-18); BUN/Creat Ratio 19.5 RATIO (10-20); Bilirubin, Direct 0.11 mg/dL (0.00-0.30); CPK Total, Creatine Kinase 64 U/L (39-308); Calcium,Total 9.2 mg/dL (8.5-10.1); Chloride 104 mmol/L (98-107); Creatinine, Serum 0.62 mg/dL (0.70-1.30); EST Glomerular Filtration Rate 149 mL/min (>60); Est Glom Filt Rate - Afr Amer 180 mL/min (>60); Glucose 198 mg/dL (74-106); Potassium 4.3 mmol/L (3.5-5.1); Protein, Total 6.1 g/dL (6.4-8.2); Sodium Level 138 mmol/L (136-145)
[2021-10-07 15:47] LABS: Hematocrit 41.5 % (40-54); Hemoglobin 14.1 g/dL (13.0-16.5); Mean Corpuscular Hgb 29.4 pg (27.0-32.0); Mean Corpuscular Volume 86.6 fL (80-94); Mean Platelet Vol. 12.2 fl (6.2-12.0); Platelet Count 247 K/mm3 (150-450); RBC Distribution Width CV 13.2 % (11.6-14.6); RBC Distribution Width SD 41.2 fl (35.1-43.9); Red Blood Count 4.79 M/mm3 (4.6-6.2); White Blood Count 10.2 K/mm3 (4.4-11.0)
[2021-10-07 16:14] LABS: AST(SGOT) 10 U/L (15-37); Alanine Aminotransfer ALT/SGPT 14 U/L (16-61); Albumin, Serum 3.6 g/dL (3.2-5.0); Alkaline Phosphatase 95 U/L (45-117); Anion Gap 9 (5-15); BUN 15 mg/dL (7-18); BUN/Creat Ratio 22.7 RATIO (10-20); Bilirubin, Direct 0.07 mg/dL (0.00-0.30); Calcium,Total 9.3 mg/dL (8.5-10.1); Chloride 101 mmol/L (98-107); Creatinine, Serum 0.66 mg/dL (0.70-1.30); EST Glomerular Filtration Rate 137 mL/min (>60); Est Glom Filt Rate - Afr Amer 166 mL/min (>60); Globulin 3.6 g/dL (2.2-4.2); Glucose 420 mg/dL (74-106); Potassium 4.4 mmol/L (3.5-5.1); Protein, Total 7.2 g/dL (6.4-8.2); Sodium Level 138 mmol/L (136-145)
[2021-10-07 16:16] LABS: Erythrocyte Sedimentation Rate 27 mm/hr (0-20)
[2021-10-14 14:01] LABS: Erythrocyte Sedimentation Rate 29 mm/hr (0-20)
[2021-10-14 14:02] LABS: AST(SGOT) 12 U/L (15-37); Alanine Aminotransfer ALT/SGPT 13 U/L (16-61); Albumin, Serum 3.1 g/dL (3.2-5.0); Alkaline Phosphatase 77 U/L (45-117); Anion Gap 5 (5-15); BUN 13 mg/dL (7-18); BUN/Creat Ratio 19.8 RATIO (10-20); Bilirubin, Direct 0.09 mg/dL (0.00-0.30); Calcium,Total 9.1 mg/dL (8.5-10.1); Chloride 105 mmol/L (98-107); Creatinine, Serum 0.66 mg/dL (0.70-1.30); EST Glomerular Filtration Rate 138 mL/min (>60); Est Glom Filt Rate - Afr Amer 167 mL/min (>60); Globulin 3.5 g/dL (2.2-4.2); Glucose 217 mg/dL (74-106); Potassium 4.4 mmol/L (3.5-5.1); Protein, Total 6.6 g/dL (6.4-8.2); Sodium Level 138 mmol/L (136-145)
[2021-10-14 14:04] LABS: Hemoglobin 13.9 g/dL (13.0-16.5); Mean Corp Hgb Conc 33.9 g/dL (32-36); Mean Corpuscular Hgb 30.1 pg (27.0-32.0); Mean Corpuscular Volume 88.7 fL (80-94); Mean Platelet Vol. 11.8 fl (6.2-12.0); Platelet Count 227 K/mm3 (150-450); RBC Distribution Width CV 13.4 % (11.6-14.6); RBC Distribution Width SD 43.2 fl (35.1-43.9); Red Blood Count 4.62 M/mm3 (4.6-6.2); White Blood Count 8.9 K/mm3 (4.4-11.0)
== END 2021-10-17 23:59 | disposition home or self-care (01) ==
LOC: HHLAB 13:30
PROVIDERS: Physician Assistant; Referring Provider Internal Medicine Infectious Disease; Visit Provider Internal Medicine Infectious Disease
DX: T87.44 Infection of amputation stump, left lower extremity (principal); E10.51 Type 1 diabetes mellitus with diabetic peripheral angiopathy without gangrene; M06.9 Rheumatoid arthritis, unspecified; E10.65 Type 1 diabetes mellitus with hyperglycemia; E10.43 Type 1 diabetes mellitus with diabetic autonomic (poly)neuropathy; E10.610 Type 1 diabetes mellitus with diabetic neuropathic arthropathy; Z79.4 Long term (current) use of insulin; B95.62 Methicillin resistant Staphylococcus aureus infection as the cause of diseases classified elsewhere; I10 Essential (primary) hypertension; F17.210 Nicotine dependence, cigarettes, uncomplicated; D64.9 Anemia, unspecified; F32.A Depression, unspecified; F41.9 Anxiety disorder, unspecified; G89.29 Other chronic pain; M81.0 Age-related osteoporosis without current pathological fracture; E03.9 Hypothyroidism, unspecified; G43.909 Migraine, unspecified, not intractable, without status migrainosus; H54.7 Unspecified visual loss; F12.90 Cannabis use, unspecified, uncomplicated; H91.93 Unspecified hearing loss, bilateral; Z79.899 Other long term (current) drug therapy
CPT/HCPCS: 80048; 80053; 80076; 82248; 82550; 85025; 85027; 85652

== ENCOUNTER 2021-10-21 13:19 | Outpatient (RCR) | payer MEDICARE, MEDICAID, SELFPAY ==
[2021-10-21 14:28] LABS: Erythrocyte Sedimentation Rate 12 mm/hr (0-20)
[2021-10-21 14:31] LABS: Hematocrit 38.1 % (40-54); Hemoglobin 12.9 g/dL (13.0-16.5); Mean Corp Hgb Conc 33.9 g/dL (32-36); Mean Corpuscular Hgb 29.6 pg (27.0-32.0); Mean Corpuscular Volume 87.4 fL (80-94); Mean Platelet Vol. 12.9 fl (6.2-12.0); Platelet Count 162 K/mm3 (150-450); RBC Distribution Width CV 12.9 % (11.6-14.6); RBC Distribution Width SD 41.5 fl (35.1-43.9); Red Blood Count 4.36 M/mm3 (4.6-6.2); White Blood Count 11.7 K/mm3 (4.4-11.0)
[2021-10-21 14:35] LABS: AST(SGOT) 9 U/L (15-37); Alanine Aminotransfer ALT/SGPT 11 U/L (16-61); Albumin, Serum 2.9 g/dL (3.2-5.0); Alkaline Phosphatase 68 U/L (45-117); Anion Gap 7 (5-15); BUN 13 mg/dL (7-18); BUN/Creat Ratio 20.3 RATIO (10-20); Bilirubin, Direct 0.11 mg/dL (0.00-0.30); Calcium,Total 7.8 mg/dL (8.5-10.1); Chloride 105 mmol/L (98-107); Creatinine, Serum 0.64 mg/dL (0.70-1.30); EST Glomerular Filtration Rate 142 mL/min (>60); Est Glom Filt Rate - Afr Amer 172 mL/min (>60); Globulin 3.1 g/dL (2.2-4.2); Glucose 330 mg/dL (74-106); Potassium 3.8 mmol/L (3.5-5.1); Sodium Level 137 mmol/L (136-145)
== END 2021-11-16 23:59 ==
LOC: HHLAB 13:19
PROVIDERS: Referring Provider Internal Medicine Infectious Disease; Visit Provider Internal Medicine Infectious Disease
DX: T87.44 Infection of amputation stump, left lower extremity (principal); M86.9 Osteomyelitis, unspecified
CPT/HCPCS: 80048; 80076; 85027; 85652

== ENCOUNTER 2021-12-11 18:40 | Emergency (ER) | payer MEDICARE, MEDICAID, SELFPAY ==
[2021-12-11 18:42] VITALS: BP 132/106; PULSE 107; RESP 15; TEMP 36.2; O2SAT 99; BMI 23.1
[2021-12-11 18:51] LABS: Bedside Glucose 176 mg/dL (74-106)
--- NOTE | 2021-12-11 19:00 | EKG12_ITS ---
Test Reason : CP Blood Pressure : / mmHG Vent. Rate : 105 BPM Atrial Rate : 105 BPM P-R Int : 144 ms QRS Dur : 076 ms QT Int : 334 ms P-R-T Axes : 069 -07 064 degrees QTc Int : 441 ms Sinus tachycardia with occasional Premature ventricular complexes Septal infarct , age undetermined Abnormal ECG Confirmed by ALIS GUY, CHADWICK ([id number]), editorial assistant BILL MURRAY ([id number]) on 12/12/2021 11:13:48 AM Referred By: FRANCIA Confirmed By:CHADWICK SNELL MD
--- NOTE | 2021-12-11 19:01 | EDS_ITS ---
HPI History of Present Illness Chief Complaint: Chest Pain Informant: patient Narrative Narrative: Patient's reason for coming today is left-sided chest pain. Patient states he has been having cramping in his lower abdomen for 6 months. Sometimes this cramps and moves up to his left chest. The abdomen is not hurting at this moment. However this is chronic and unchanged. He has noted that for the last week his left-sided chest pain has been more constant. If he presses really hard in his chest it helps it. He is not coughing. He thinks he might be short of breath but states he smokes a pack a day and is a little bit short of breath all the time. No hemoptysis. No diaphoresis. He does state that he has been intermittently nauseated but this is also chronic. He states he does not eat enough and tries to eat boost shakes. He has had no fevers or chills. He denies trauma. He evidently has had this evaluated multiple times. He states his EKGs are always normal. He denies any known heart disease but states he thinks he might of had something happen to his heart and when he was 24. They kept him in the hospital for couple days. They told him something might of happened to his heart. But they did not do a heart cath. They did not start or change any medications. They did not arrange any specific follow-up. [facility] Medical History Alcohol abuse Anemia Anxiety Asthma Back pain due to injury Cellulitis (~09/15/21) Charcot ankle Charcot foot due to diabetes mellitus Chest pain Chronic pain Current use of insulin Depression Diabetes Diabetes mellitus Gastroparesis GERD (gastroesophageal reflux disease) Hearing loss, left Hearing loss, right Hepatitis History of left below knee amputation History of stress test Hypertension Hypothyroidism Migraines Neuropathy Osteoporosis Pancreatitis Restless legs Rheumatoid arthritis Seizures Smoker Stroke Substance abuse Type 1 diabetes Vision loss of left eye Vision loss of right eye Home Medications lisinopril 10 mg PO DAILY 10/04/19 [History Last Taken 09/14/21 13:00] insulin lispro See Protocol SUBCUT TID 01/25/20 [History Last Taken 3 Days Ago ~08/10/20] gabapentin 300 mg PO 4X/DAY 08/13/20 [History Last Taken 09/14/21 13:00] insulin glargine 18 unit SQ BID 08/13/20 [History Last Taken 09/14/21 20:30] pantoprazole 40 mg PO DAILY 08/13/20 [History Last Taken 09/14/21 13:00] levothyroxine 25 mcg PO DAILY 09/15/21 [History Last Taken 09/14/21 13:00] aspirin 81 mg PO DAILY 12/11/21 [History Last Taken Unknown] Allergy/AdvReac Type Severity Reaction Status Date / Time No Known Allergies Allergy Verified 12/11/21 18:42 Family History Other Cancer Diabetes Heart disease Surgical History H/O tooth extraction S/P BKA (below knee amputation) Social History Smoking Status: Heavy Smoker (>10/day) ROS ROS ED Constitutional Constitutional ED: Denies chills, fever(s) or subjective Eyes Eyes: Denies blurry vision ENT ENT ED: Denies rhinorrhea Cardiovascular Cardiovascular: Reports chest pain; Denies palpitations or racing heartbeat Respiratory/Chest Respiratory/Chest: Reports cough and dyspnea; Denies sputum Gastrointestinal Gastrointestinal: Reports abdominal pain, nausea and other Details: Chronic unchanged for over 6 months. ; Denies constipation, diarrhea, melena or vomiting Genitourinary Genitourinary ED: Denies dysuria Musculoskeletal Musculoskeletal: Reports other Details: Patient has recurrent chronic recurrent infections of his left below the knee amputation but no active complaints at this time. ; Denies myalgias Integumentary Denies rash Psychiatric Psychiatric: Reports depression Endocrine Endocrinology: Denies polydipsia or polyuria Hematologic/Lymphatic Hematologic/Lymphatic: Denies easy bleeding or easy bruising Allergic/Immunologic Allergic/Immunologic ED: Denies urticaria EXAM Physical Exam Const Vital Signs: 12/11/21 18:42 12/11/21 20:10 12/11/21 21:50 Temperature 97.1 F L Temperature Source Temporal Pulse Rate 107 H 83 87 Respiratory Rate 15 12 17 Blood Pressure 132/106 H 139/90 H 128/86 H Blood Pressure Mean 114 106 Pulse Ox 99 97 96 Oxygen Delivery Method Room Air Room Air Positive well nourished and well developed General Appearance ED: well developed and NAD HEENT Reports moist mucous membranes normocephalic Eyes General Eye ED: Negative for pale conjunctiva or scleral icterus Neck no JVD Chest Wall inspection of chest normal Chest Narrative: Mild soreness with palpation of the left chest. But there is no rashes or skin changes. No crepitance. No subcu air. Resp normal respiratory effort and clear to auscultation bilaterally Effort and Inspection: Negative for respiratory distress Auscultation: Negative for rales, rhonchi or wheezes Cardio regular rate and regular rhythm GI normal to inspection, nondistended, normoactive bowel sounds GI Narrative: Abdomen is totally benign. Bowel sounds are normal. Not distended. There is no tenderness including in the lower abdomen where he s tates he has chronic pain. Back/Spine no CVA tenderness Extremity Extremity Narrative: No peripheral edema. He has below the knee amputation on the left with no sign of infection Neuro Sensorium / Orientation: awake Psych mental status grossly normal Skin no rashes or lesions noted MDM MDM MDM Narrative Medical decision making narrative: Patient's blood work showed essentially normal CBC other than minimal elevation in his white count which is nonspecific. Electrolytes look good. Glucose was 187 which generally is pretty good for him. Troponin was less than 3 despite a week of symptoms. Lipase was minimally elevated which is a nonspecific finding. D-dimer was elevated. Because of the D-dimer elevated we did do CTA of the chest. Since we are already doing CT of most of the area and giving IV contrast we did abdomen because he is also been having abdominal pain and had elevated lipase. The studies do not show any acute abnormalities. There were some bony densities but there is no sign historical air on all the scans of any cancer. No sign of pancreatitis. Mild gastric thickening which could be some gastritis causing his symptoms. He will have a bland diet. He is already on pantoprazole. I think he is safe to go home and he will follow-up with his physician. Lab Data Attestation: I reviewed the patient's lab results. Labs: Laboratory Results - last 24 hr 12/11/21 12/11/21 12/11/21 18:47 19:00 19:00 WBC 11.2 H RBC 5.50 Hgb 16.2 Hct 48.0 MCV 87.3 MCH 29.5 MCHC 33.8 RDW Std Deviation 42.8 RDW Coeff of Candace 13.3 Plt Count 258 MPV 11.2 Immature Gran % (Auto) 0.300 Neut % (Auto) 63.0 Lymph % (Auto) 24.7 [place] % (Auto) 7.9 Eos % (Auto) 3.0 Baso % (Auto) 1.1 H Absolute Neuts (auto) 7.0 Absolute Lymphs (auto) 2.76 Nucleated RBC % 0 D-Dimer Quant (PE/DVT) Sodium 136 Potassium 4.8 Chloride 101 Carbon Dioxide 28.0 Anion Gap 7 BUN 12 Creatinine 0.80 Estim Creat Clear Calc 114.15 Est GFR (MDRD) Af Amer 134 Est GFR (MDRD) Non-Af 111 BUN/Creatinine Ratio 15.1 Glucose 187 H Calcium 9.8 Total Bilirubin 0.50 AST 28 ALT 63 H Alkaline Phosphatase 100 Troponin I High Sens < 3 L Total Protein 8.5 H Albumin 4.0 Globulin 4.5 H Albumin/Globulin Ratio 0.9 Lipase 476 H POC Glucose 176 H 12/11/21 19:00 WBC RBC Hgb Hct MCV MCH MCHC RDW Std Deviation RDW Coeff of Candace Plt Count MPV Immature Gran % (Auto) Neut % (Auto) Lymph % (Auto) [place] % (Auto) Eos % (Auto) Baso % (Auto) Absolute Neuts (auto) Absolute Lymphs (auto) Nucleated RBC % D-Dimer Quant (PE/DVT) 2.30 H* Sodium Potassium Chloride Carbon Dioxide Anion Gap BUN Creatinine Estim Creat Clear Calc Est GFR (MDRD) Af Amer Est GFR (MDRD) Non-Af BUN/Creatinine Ratio Glucose Calcium Total Bilirubin AST ALT Alkaline Phosphatase Troponin I High Sens Total Protein Albumin Globulin Albumin/Globulin Ratio Lipase POC Glucose Radiography Diagnostic Testing: Clinical Impression(s) from Imaging Studies Chest X-Ray 12/11/21 19:10 IMPRESSION: There are no acute findings. Electronically Signed: Umer Morris MD at 19:32 EDT , Abdomen/Pelvis CT 12/11/21 20:10 IMPRESSION: (NOT LISTED IN ORDER OF SIGNIFICANCE) Gastritis. Sclerotic focus in the left symphysis pubis, left femoral head and neck, and right femoral head and right acetabulum. Bone island should be considered. However metastatic disease cannot be excluded. Other findings as above. Electronically Signed: Umer Morris MD at 20:57 EDT , Chest CTA 12/11/21 20:10 IMPRESSION: No demonstrated pulmonary embolism or arterial dissection. Electronically Signed: Umer Morris MD at 20:37 EDT , EKG Initial EKG: Comments: EKG done for complaint of chest pain read by me shows sinus rhythm with mildly tachycardic rate at 105. Some nonspecific anterior changes but no definitive evidence of ST elevation IN. Single PVC. CO interval, QRS duration and QTc normal. Discharge Plan Triage Chief Complaint: Chest Pain Other Complaint: Abd Pain ED Provider: Carlos Rucker Dx/Rx/DC Orders Clinical Impression: Left-sided chest pain, Abdominal pain, chronic, generalized Instructions: ED Chest Pain, Uncertain Cause, ED Abdominal Pain Unkn Cause Male... Prescriptions: No Action lisinopril 10 MG tablet 10 mg PO DAILY RF: 0 insulin lispro 100 UNIT/ML insulin pen See Protocol unit subcut TID RF: 0 pantoprazole 40 MG tablet 40 mg PO DAILY RF: 0 insulin glargine 100 UNIT/ML solution 18 unit SQ BID RF: 0 gabapentin 300 MG capsule 300 mg PO 4X/DAY RF: 0 levothyroxine 25 mcg tablet 25 mcg PO DAILY RF: 0 aspirin 81 mg tablet,chewable 81 mg PO DAILY RF: 0 Primary Care Provider: Jah Rey Referrals: Jah Rey MD [Primary Care Provider] - As soon as possible Disposition Disposition: Home, Self Care
--- NOTE | 2021-12-11 19:10 | RAD_ITS ---
STUDY: X-RAY CHEST REASON FOR EXAM: Male, 46 years old. CHEST PAIN chest pain TECHNIQUE: XR Chest 1 View COMPARISON: 08/13/2020 FINDINGS: There is no demonstrated pleural abnormality. Normal size heart. Normal mediastinum and aime. Normal visualized pulmonary arteries. Normal visualized aortic arch and descending thoracic aorta. Normal visualized thoracic spine. Normal visualized ribs, clavicles, and shoulders. There is no demonstrated abnormality of the visualized soft tissue structures of the upper abdomen. RAD/Chest 1 View (Portable) IMPRESSION: There are no acute findings. Electronically Signed: Umer oMrris MD at 19:32 EDT ,
[2021-12-11 19:17] LABS: Absolute Lymphocyte Count 2.76 X10^3/uL (0.83-4.51); Basophil# 0.12 X10^3/uL; Basophil% 1.1 % (0-1); Eosinophil# 0.34 X10^3/uL; Hemoglobin 16.2 g/dL (13.0-16.5); Lymphocyte # 2.76 X10^3/ul (0.83-4.51); Lymphocyte % 24.7 % (19-41); Mean Corp Hgb Conc 33.8 g/dL (32-36); Mean Corpuscular Hgb 29.5 pg (27.0-32.0); Mean Corpuscular Volume 87.3 fL (80-94); Mean Platelet Vol. 11.2 fl (6.2-12.0); Monocyte# 0.88 X10^3/uL; Monocyte% 7.9 % (0-10); NRBC Flagged by Analyzer 0 % (0-5); Neutrophil # 7.04 X10^3/uL (2.7-7.7); Platelet Count 258 K/mm3 (150-450); RBC Distribution Width CV 13.3 % (11.6-14.6); RBC Distribution Width SD 42.8 fl (35.1-43.9); White Blood Count 11.2 K/mm3 (4.4-11.0)
[2021-12-11 19:31] LABS: ALB/GLOB Ratio 0.9 RATIO (0.9-2.4); AST(SGOT) 28 U/L (15-37); Alanine Aminotransfer ALT/SGPT 63 U/L (16-61); Alkaline Phosphatase 100 U/L (45-117); Anion Gap 7 (5-15); BUN 12 mg/dL (7-18); BUN/Creat Ratio 15.1 RATIO (10-20); Calcium,Total 9.8 mg/dL (8.5-10.1); Chloride 101 mmol/L (98-107); EST Glomerular Filtration Rate 111 mL/min (>60); Est Glom Filt Rate - Afr Amer 134 mL/min (>60); Estimated Creatinine Clearance 114.15 ml/min; Globulin 4.5 g/dL (2.2-4.2); Glucose 187 mg/dL (74-106); Lipase 476 U/L (73-393); Potassium 4.8 mmol/L (3.5-5.1); Protein, Total 8.5 g/dL (6.4-8.2); Sodium Level 136 mmol/L (136-145); Troponin-I HS < 3 pg/mL (3.0-78.0)
[2021-12-11 20:10] VITALS: BP 139/90; PULSE 83; RESP 12; O2SAT 97
--- NOTE | 2021-12-11 20:10 | CT_ITS ---
EXAM: CT ANGIOGRAPHY CHEST WITHOUT AND WITH INTRAVENOUS CONTRAST CLINICAL INDICATION: chest pain elevated d-dimer TECHNIQUE: Helically acquired angiography images were obtained of the chest without and with intravenous contrast. This CT exam was performed using one or more of the following dose reduction techniques: automated exposure control, adjustment of the mA and/or kV according to patient size, and/or use of iterative reconstruction technique. This report was created using [employer] report generation technology. MIP reconstructed images were created and reviewed. CONTRAST: IV 100mL Isovue-370 RADIATION DOSE: CTDIvol = 10.71 mGy, DLP = 1060.47 mGy-cm COMPARISON: None. FINDINGS: PULMONARY ARTERIES: No demonstrated pulmonary embolism or arterial dissection. AORTA: There is atherosclerotic calcification of the aortic arch with tortuosity and elongation of the aortic arch and descending thoracic aorta. Normal in caliber. No evidence of dissection. GREAT VESSELS OF AORTIC ARCH: Unremarkable. Normal in caliber. No evidence of dissection. LUNGS AND PLEURAL SPACES: Unremarkable. No mass. No consolidation or edema. No pleural effusion or thickening. No pneumothorax. HEART: There are calcifications of the coronary arteries. No pericardial effusion. No signs of right heart strain, ratio of right ventricle to left ventricle measures less than 1. MEDIASTINUM: Unremarkable. No mediastinal or hilar adenopathy. Esophagus is unremarkable. No hiatal hernia. THYROID: Unremarkable. No thyroid lesions. BONES/JOINTS: There are degenerative changes of the shoulders. There are multi-level degenerative changes of the thoracic spine. No suspicious lytic or blastic abnormality. CT/CTA Chest W/WO Contrast IMPRESSION: No demonstrated pulmonary embolism or arterial dissection. Electronically Signed: Umer Morris MD at 20:37 EDT ,
--- NOTE | 2021-12-11 20:10 | CT_ITS ---
STUDY: CT Abdomen And Pelvis W/ Contrast Injection 12/11/2021 8:54 PM REASON FOR EXAM: Male, 46 years old. ABDOMINAL PAIN abdominal pain, elevated lipase TECHNIQUE: Transaxial images were obtained without oral contrast, and without IV 100mL Isovue-370 intravenous contrast. Individualized dose optimization techniques were used for this CT. COMPARISON: 06/14/2021. FINDINGS: There are atherosclerotic calcifications of visualized coronary arteries. The visualized portions of the heart are within normal limits. Unremarkable liver. Unremarkable gallbladder and extrahepatic biliary system. Unremarkable spleen. Unremarkable pancreas. Unremarkable bilateral adrenal glands. No acute findings of the right kidney. No acute findings of the left kidney. Focal wall thickening of the antrum of stomach. This can suggest a gastritis. Unremarkable small intestine. Unremarkable colon. There is non-visualization of the appendix. There are calcifications of the abdominal aorta. This is consistent for atherosclerotic disease. There is no abdominal aortic aneurysm. Unremarkable inferior vena cava. Subcentimeter mesenteric lymph nodes. Unremarkable urinary bladder. There are prostatic calcifications.Sclerotic focus in the left symphysis pubis, left femoral head and neck, and right femoral head and right acetabulum. Bone island should be considered. However metastatic disease cannot be excluded. Anterior abdominal inflammatory injection granulomas. Unremarkable abdominal wall. There are diffuse degenerative changes of the visualized lumbar spine. CT/Abdomen/Pelvis W IV Cont ONLY IMPRESSION: (NOT LISTED IN ORDER OF SIGNIFICANCE) Gastritis. Sclerotic focus in the left symphysis pubis, left femoral head and neck, and right femoral head and right acetabulum. Bone island should be considered. However metastatic disease cannot be excluded. Other findings as above. Electronically Signed: Umer Morris MD at 20:57 EDT ,
[2021-12-11] MEDS: HYDROcodone Bitartrate/Apap 5/325 Tablet PO (21:49)
[2021-12-11 21:50] VITALS: BP 128/86; PULSE 87; RESP 17; O2SAT 96
[2021-12-11] MEDS: Dicyclomine 10 MG Capsule 20 MG PO (21:50)
== END 2021-12-11 22:52 | disposition home or self-care (01) ==
PROVIDERS: Emergency Provider Emergency Medicine; PCP Internal Medicine; Visit Provider Emergency Medicine
DX: R07.9 Chest pain, unspecified (principal); Z89.512 Acquired absence of left leg below knee; E10.610 Type 1 diabetes mellitus with diabetic neuropathic arthropathy; E10.40 Type 1 diabetes mellitus with diabetic neuropathy, unspecified; Z79.4 Long term (current) use of insulin; R10.9 Unspecified abdominal pain; G89.29 Other chronic pain; I10 Essential (primary) hypertension; R74.8 Abnormal levels of other serum enzymes; F17.200 Nicotine dependence, unspecified, uncomplicated; Z79.82 Long term (current) use of aspirin; Z79.890 Hormone replacement therapy; Z79.899 Other long term (current) drug therapy; H91.93 Unspecified hearing loss, bilateral; E03.9 Hypothyroidism, unspecified
CPT/HCPCS: 71045; 71275; 74177; 80053; 82962; 83690; 84484; 85025; 85379; 93005; 99285; Q9967

== ENCOUNTER → 2022-04-29 | Outpatient (CLI) | payer MEDICARE, MEDICAID, SELFPAY ==
[2022-04-29 14:11] LABS: International Normalized Ratio 0.9; Prothrombin Time (Protime)PT. 12.2 SECONDS (11.7-14.9)
[2022-04-29 14:35] LABS: ALB/GLOB Ratio 0.9 RATIO (0.9-2.4); AST(SGOT) 14 U/L (15-37); Alanine Aminotransfer ALT/SGPT 16 U/L (16-61); Albumin, Serum 3.5 g/dL (3.2-5.0); Alkaline Phosphatase 89 U/L (45-117); Anion Gap 3 (5-15); BUN 14 mg/dL (7-18); BUN/Creat Ratio 20.6 RATIO (10-20); CRP < 2.90 mg/L (0.0-3.0); Calcium,Total 9.2 mg/dL (8.5-10.1); Chloride 101 mmol/L (98-107); Creatinine, Serum 0.68 mg/dL (0.70-1.30); EST Glomerular Filtration Rate 133 mL/min (>60); Est Glom Filt Rate - Afr Amer 161 mL/min (>60); Glucose 292 mg/dL (74-106); Hepatitis B Surface Antibody Non-Reactive; LDH 183 U/L (87-241); Potassium 4.8 mmol/L (3.5-5.1); Protein, Total 7.5 g/dL (6.4-8.2); Sodium Level 135 mmol/L (136-145)
[2022-04-29 15:04] LABS: Erythrocyte Sedimentation Rate 15 mm/hr (0-20)
[2022-04-29 15:07] LABS: Absolute Lymphocyte Count 2.48 X10^3/uL (0.83-4.51); Absolute Neutrophil Count 4.8 X10^3/uL (2.0-7.7); Basophil# 0.13 X10^3/uL; Basophil% 1.5 % (0-1); Eosinophil# 0.65 X10^3/uL; Eosinophils% 7.4 % (0-5); Hematocrit 43.3 % (40-54); Hemoglobin 14.5 g/dL (13.0-16.5); Lymphocyte # 2.48 X10^3/ul (0.83-4.51); Lymphocyte % 28.2 % (19-41); Mean Corp Hgb Conc 33.5 g/dL (32-36); Mean Corpuscular Hgb 29.9 pg (27.0-32.0); Mean Corpuscular Volume 89.3 fL (80-94); Mean Platelet Vol. 11.5 fl (6.2-12.0); Monocyte# 0.73 X10^3/uL; Monocyte% 8.3 % (0-10); NRBC Flagged by Analyzer 0 % (0-5); Neutrophil # 4.78 X10^3/uL (2.7-7.7); Neutrophil % 54.5 % (47-70); Platelet Count 201 K/mm3 (150-450); RBC Distribution Width CV 12.9 % (11.6-14.6); RBC Distribution Width SD 42.8 fl (35.1-43.9); Red Blood Count 4.85 M/mm3 (4.6-6.2); White Blood Count 8.8 K/mm3 (4.4-11.0)
[2022-05-02 00:08] LABS: HCV Quant. RNA PCR 540 IU/mL (.)
[2022-05-03 15:03] LABS: AFP, Tumor Marker 1.4 ng/mL (0.0-6.9); HCV log 10 2.732 (.)
== END | disposition home or self-care (01) ==
LOC: LAB 13:47
PROVIDERS: Nurse Practitioner Adult Health; PCP Internal Medicine; Visit Provider Internal Medicine Gastroenterology
DX: B18.2 Chronic viral hepatitis C (principal); E46 Unspecified protein-calorie malnutrition; E11.10 Type 2 diabetes mellitus with ketoacidosis without coma; R11.10 Vomiting, unspecified
CPT/HCPCS: 36415; 80053; 82105; 82140; 83615; 85025; 85610; 85652; 86140; 86706; 87522

== ENCOUNTER → 2022-06-02 | Outpatient (CLI) | payer MEDICARE, MEDICAID, SELFPAY ==
[2022-06-02 16:01] LABS: Absolute Lymphocyte Count 2.64 X10^3/uL (0.83-4.51); Absolute Neutrophil Count 6.4 X10^3/uL (2.0-7.7); Basophil# 0.11 X10^3/uL; Basophil% 1.1 % (0-1); Eosinophil# 0.45 X10^3/uL; Eosinophils% 4.3 % (0-5); Hematocrit 43.2 % (40-54); Hemoglobin 14.4 g/dL (13.0-16.5); Lymphocyte # 2.64 X10^3/ul (0.83-4.51); Lymphocyte % 25.5 % (19-41); Mean Corp Hgb Conc 33.3 g/dL (32-36); Mean Corpuscular Hgb 29.8 pg (27.0-32.0); Mean Corpuscular Volume 89.3 fL (80-94); Mean Platelet Vol. 11.9 fl (6.2-12.0); Monocyte# 0.74 X10^3/uL; Monocyte% 7.1 % (0-10); NRBC Flagged by Analyzer 0 % (0-5); Neutrophil % 61.7 % (47-70); Platelet Count 222 K/mm3 (150-450); RBC Distribution Width SD 42.2 fl (35.1-43.9); Red Blood Count 4.84 M/mm3 (4.6-6.2); White Blood Count 10.4 K/mm3 (4.4-11.0)
[2022-06-02 16:49] LABS: Erythrocyte Sedimentation Rate 29 mm/hr (0-20)
[2022-06-02 16:54] LABS: Prothrombin Time (Protime)PT. 12.5 SECONDS (11.7-14.9)
[2022-06-02 17:17] LABS: AST(SGOT) 21 U/L (15-37); Alanine Aminotransfer ALT/SGPT 35 U/L (16-61); Albumin, Serum 3.8 g/dL (3.2-5.0); Alkaline Phosphatase 94 U/L (45-117); Anion Gap 5 (5-15); BUN 20 mg/dL (7-18); CRP < 2.90 mg/L (0.0-3.0); Calcium,Total 9.4 mg/dL (8.5-10.1); Chloride 92 mmol/L (98-107); Creatinine, Serum 0.71 mg/dL (0.70-1.30); EST Glomerular Filtration Rate 125 mL/min (>60); Est Glom Filt Rate - Afr Amer 151 mL/min (>60); Ferritin 23 ng/mL (26-388); Globulin 3.9 g/dL (2.2-4.2); Glucose 246 mg/dL (74-106); LDH 190 U/L (87-241); Potassium 4.9 mmol/L (3.5-5.1); Protein, Total 7.7 g/dL (6.4-8.2); Sodium Level 129 mmol/L (136-145)
[2022-06-03 08:44] LABS: HIV - WCH Non-Reactive (Nonreactive)
[2022-06-04 14:09] LABS: Anti-Centromere B Ab <0.2 AI (0.0-0.9); Anti-Chromatin <0.2 AI (0.0-0.9); Anti-Jo <0.2 AI (0.0-0.9); Anti-Scleroderma-70 AB <0.2 AI (0.0-0.9); RNP Ab <0.2 AI (0.0-0.9); SJOGREN'S Anti-SS-A test < 0.2 AI (0.0-0.9); SJOGREN'S Anti-SS-B test < 0.2 AI (0.0-0.9); Smith Ab <0.2 AI (0.0-0.9)
[2022-06-04 16:08] LABS: Anti-Mitochondrial AB <20.0 Units (0.0-20.0); Anti-dsDNA Ab <1 IU/mL (0-9)
== END | disposition home or self-care (01) ==
LOC: LAB 14:45
PROVIDERS: PCP Internal Medicine; Visit Provider Nurse Practitioner Adult Health
DX: B19.20 Unspecified viral hepatitis C without hepatic coma (principal)
CPT/HCPCS: 36415; 80053; 80074; 82105; 82140; 82164; 82390; 82525; 82728; 83010; 83036; 83516; 83615; 85025; 85610; 85652; 86140; 86225; 86235; 86256; 86703; 86704

== ENCOUNTER 2022-06-19 09:46 | Day surgery (SDC) | payer MEDICARE, MEDICAID, SELFPAY ==
[2022-06-19] VITALS (7 sets, daily range): BP systolic 125–146; BP diastolic 82–93; PULSE 72–93; RESP 18–20; TEMP 36.6–37.1; O2SAT 100; BMI 22.8
--- NOTE | 2022-06-19 | IMM_PTH ---
PATIENT: TORI CANTOR LOC: EN U#:[id number] AGE/SX: 47/M ROOM: RE06/19/[address]: Dr. Santos Terrazas DO : 1975 BED: DIS: 06/19/2022 SPEC #: [id number] RECD: 06/23/22 10:15 STATUS: MARIIA REWen #: [id number] ANTOINE: 06/19/22 00:[address]: Santos Terrazas DEPT: IMMUNOHISTOCHEMISTRY RECD BY: Swathi Ballesteros ENTERED: 06/23/22 10:15 SP TYPE: IMMUNO OTHR DR: Dr. Jah Rey MD Tissues: Esophagus, NOS Procedures: P53 (initial) KI-67 (add) PHYSICIAN & INSTITUTION [place] [id number] SPECIMEN INFORMATION: Tissue Source: Distal esophagus Clinical Info: Chronic hepatitis C, gastroparesis, GERD, constipation Specimen Number: [id number] CPT code: 90777, 83786 METHODOLOGY: Deparaffinized sections of prefer/formalin-fixed tissue or PAP/DQ stained slides are incubated with monoclonal/polyclonal antibodies/oligonucleotide probes. Localization is made via biotin free immunoperoxidase method. Appropriate controls are performed and reacted as expected. Results on target cell population are indicated in the following table: RESULTS: ANTIBODY / CLONE RESULT P53 (DO-7) negative Ki-67 (30-9) positive, very low These tests were developed and their performance characteristics determined by [facility]. They may not have been cleared or approved by the U.S. Food and Drug Administration. The FDA has determined that such clearance or approval is not necessary. The above immunohistochemical/dualISH markers are ordered and reviewed by the Pathologist. INTERPRETATION: Distal esophagus, biopsy: Negative for dysplasia. RIGOBERTO:yen 06/24/2022
--- NOTE | 2022-06-19 | ESO_PTH ---
PATIENT: TORI CANTOR LOC: EN U#:[id number] AGE/SX: 47/M ROOM: RE06/19/[address]: Dr. Santos Terrazas DO : 1975 BED: DIS: 06/19/2022 SPEC #: [id number] RECD: 06/19/22 13:31 STATUS: MARIIA FLORENCIA #: [id number] ANTOINE: 06/19/22 00:[address]: Santos Terrazas DEPT: SURGICAL PATHOLOGY RECD BY: Jaswinder Redding ENTERED: 06/20/22 08:57 SP TYPE: SOLE VERNON DR: Dr. Jah Rey MD Tissues: Esophagus, NOS Procedures: Special Stain Group II Surgery Specimen Level IV Alcian Blue/PAS (control) HEADER OPERATION[place] [place] PRE-OP DIAGNOSIS: Chronic hepatitis C, gastroparesis, GERD, constipation TISSUE SUBMITTED: Distal esophagus biopsy MICROSCOPIC DIAGNOSIS Distal esophagus, biopsy: Fragments of gastroesophageal mucosa with extensive intestinal metaplasia (goblet cell metaplasia) consistent with Evans?s esophagus. Moderate chronic inflammation. Negative for dysplasia. See comment. RIGOBERTO:yen 06/23/2022 COMMENT Immunohistochemistry ([id number]) for P53 and Ki-67 will be performed and results will be reported separately. Alcian blue/PAS stain with matched control is used in the evaluation of the specimen. MICROSCOPIC DESCRIPTION Slides are reviewed. GROSS DESCRIPTION Received in fixative is one container labeled with the patient's name and designated distal esophagus. The specimen consists of multiple irregular fragments of light jhaveri soft tissue that in aggregate measure 1 x 0.6 x 0.1 cm. The specimen is totally submitted in one cassette. / AM:yen 06/20/2022 TC:3 CPT: 51092, 26984
[2022-06-19] MEDS: Lactated Ringers 1,000 ML 15 ML IV (10:18)
[2022-06-19 10:45] LABS: Bedside Glucose 200 mg/dL (74-106)
--- NOTE | 2022-06-19 10:57 | PCM.HP.BLA ---
History and Physical Date of Admission: 06/19/22 [facility] [address] [place] [address] OFFICE VISIT Date of Service:? 04/29/22 MR#: [id number] Acct: [id number] Name:TORI GARZA Rep #: [id number] : 1975 ? ? Provider: ?ANDREW Galvan Age/Sex:? 47/M ? ? Location: [facility] [email or web address] Status: Signed Intake Vital Signs ? 12/11/2217:42 04/29/2212:57 Height 5 ft 9 in 5 ft 9 in Weight: 156 lb 11.979 oz 154 lb BMI 23.1 22.7 BP 132/106 H 130/87 H Blood Pressure Location ? Rt brachial Position ? Sitting Respiration 15 ? Pulse 107 H 80 Temp 97.1 F L ? Temp Source Temporal ? Pulse Oximetry (%) 99 98 Oxygen Delivery Method ? room air Intake Visit Reasons:?Consult Chief Complaint: hepatitis C Allergies No Known Allergies Allergy (Verified 03/05/22 17:06) Medications insulin lispro 100 unit/mL subcutaneous pen See Protocol subcut TID diabetes 01/25/20 [History Confirmed 03/05/22] gabapentin 300 mg capsule 300 mg PO 4X/DAY nerve pain 08/13/20 [History Confirmed 04/29/22] insulin glargine 100 unit/mL subcutaneous solution 18 unit SQ BID diabetes 08/13/20 [History Confirmed 03/05/22] pantoprazole 40 mg tablet,delayed release 40 mg PO DAILY gerd 08/13/20 [History Confirmed 03/05/22] levothyroxine 25 mcg tablet 25 mcg PO DAILY thyroid 09/15/21 [History Confirmed 03/05/22] aspirin 81 mg chewable tablet 81 mg PO DAILY 12/11/21 [History Confirmed 12/11/21] ferrous sulfate 325 mg (65 mg iron) tablet 325 mg PO DAILY 03/05/22 [History Confirmed 03/05/22] lisinopril 20 mg tablet 20 mg PO DAILY 03/05/22 [History Confirmed 03/05/22] sertraline 50 mg tablet (Zoloft) 50 mg PO DAILY 03/05/22 [History Confirmed 03/05/22] PFSH Medical History?(Updated 04/29/22 @ 13:57 by Destinee Galvan 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, 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) Alcohol abuse Amputation of left lower extremity below knee Anemia Anxiety Asthma Back pain due to injury Cellulitis (~09/15/21) Charcot ankle Charcot foot due to diabetes mellitus Chest pain Chronic pain Current use of insulin Depression Diabetes Diabetes mellitus Gastroparesis GERD (gastroesophageal reflux disease) Hearing loss, left Hearing loss, right Hepatitis History of left below knee amputation History of stress test Hypertension Hypothyroidism Migraines Neuropathy Osteoporosis Pancreatitis Restless legs Rheumatoid arthritis Seizures Smoker Stroke Substance abuse Type 1 diabetes Vision loss of left eye Vision loss of right eye Surgical History? H/O tooth extraction Family History? Other Cancer Diabetes Heart disease Social History? Smoking Status:? Heavy Smoker (>10/day) HPI HPI Chief Complaint: hepatitis C Details: TORI CANTOR, is a 47 M who presents to the office today for f/u hepatitis C. Accompanied by friend Cate. At last visit 05/25/21 the plan was to check HCV PCR RNA to make sure he continues to clear the virus.? He was diagnosed with hepatitis C in 2019; he was told that to be treated he would have to stop marijuana therefore he declined treatment.? He reports marijuana effectively controls his pain.? He previously used IV drugs. Liver normal on US and CT. 05/17/2021 labs: Hep C genotype Ia, AFP normal 1.5, hep C quantitation 1330 He has MiraLAX which he uses as needed for constipation.? He has a diagnosis of gastroparesis; he takes pantoprazole 40 mg daily which is helpful at managing acid reflux and other symptoms of gastroparesis. Per [facility] records, 2016 colonoscopy showed ischemic colitis. EGD 2013, 2017. He has type 1 diabetes with significant related complications including left BKA, Charcot foot, gastroparesis, vision loss, peripheral arterial disease.? Past medical history also includes anxiety, asthma, chronic pain, depression, hypertension, hypothyroidism, osteoporosis, pancreatitis, rheumatoid arthritis, seizures, smoker. 05/06/22 US/Liver IMPRESSION: 2 mm gallbladder polyp. The liver is unremarkable. ? 12/11/21 CT/Abdomen/Pelvis W IV Cont ONLY IMPRESSION:? (NOT LISTED IN ORDER OF SIGNIFICANCE) Unremarkable liver. Unremarkable spleen. Unremarkable pancreas. Gastritis. Sclerotic focus in the left symphysis pubis, left femoral head and neck, and right femoral head and right acetabulum.? Bone island should be considered.? However metastatic disease cannot be excluded. Other findings as above. ? ROS Const Constitutional: Positive for fatigue ENT ENT: No difficulty swallowing Cardio Cardiology: Positive for leg pain with exertion Gastro GI: Positive for constipation and vomiting; No abdominal pain, belching, bloating, change in bowel habits, change in stool character, coffee ground emesis, cramping, diarrhea, heartburn, difficulty swallowing, feeling full early, excessive flatus, incontinent of stools, Vomiting blood/hematemesis, Blood in stool, loose stools, Black,tarry stools, nausea/dyspepsia, pain with swallowing or other Musc Musculoskeletal: Positive for joint pain, back pain, joint swelling, muscle cramps, muscle weakness, numbness, stiffness, tingling, Arthritis, restless legs, leg pain at night and leg pain with exertion Skin Skin: No yellowing of the eye or itchy eyes Neuro Neurology: Positive for numbness, tingling and restless legs Psych Psychiatric: Positive for anxiety and Positive for depression Endo Endocrine: Positive for fatigue Aller/Imm Allergy/Immunologic: No itchy eyes Adin/Lymp Hematologic/Lymphatic: No easy bleeding or easy bruising Exam Const General: cooperative, comfortable and no acute distress Nutritional Appearance: thin Other: in wheelchair Eyes Sclera: sclerae normal Skin General: no jaundice Quality Reporting Tobacco Screening ([facility] 138) Smoking Status: Heavy Smoker (>10/day) Assessment and Plan Assessment and Plan (1) Chronic hepatitis C: ?Status:?Chronic ?Plan: 47 yr old male with hepatitis C; we will update HCV RNA PCR viral load; if still elevated then will treat. Will also get labs today to evaluate liver function, AFP, inflammatory markers. We will call him with results and treatment plan. He will be scheduled for EGD to evaluate for esophagitis/Evans's/PUD/gastritis, and for colonoscopy. F/u 2 wks later to discuss results. (2) Gastroparesis: ?Status:?Acute ?Plan: Continue pantoprazole 40 mg daily (3) GERD (gastroesophageal reflux disease): ?Status:?Acute ?Plan: as above (4) Constipation: ?Status:?Acute ?Plan: continue miralax prn ? ? ? Orders: Orders Hepatitis B Surface Antibody Today B19.20 - Unspecified viral hepatitis C without hepatic coma ? Hepatitis C,RNA PCR Viral Load Today B19.20 - Unspecified viral hepatitis C without hepatic coma, R11.10 - Vomiting, unspecified ? AFP, Tumor Marker Today B18.2 - Chronic viral hepatitis C ? Comprehensive Metabolic Profil Today B18.2 - Chronic viral hepatitis C ? CRP Today B18.2 - Chronic viral hepatitis C ? LDH Today B18.2 - Chronic viral hepatitis C ? Prothrombin Time w/INR Today B18.2 - Chronic viral hepatitis C, E46 - Unspecified protein-calorie malnutrition ? CBC W/Diff, Automated Today B18.2 - Chronic viral hepatitis C, E11.10 - Type 2 diabetes mellitus with ketoacidosis without coma ? Erythrocyte Sed Rate Today B18.2 - Chronic viral hepatitis C ? Ammonia Today B18.2 - Chronic viral hepatitis C ? I have examined the patient and the H&P has been reviewed. There are no clinical changes since date of exam.
--- NOTE | 2022-06-19 11:29 | OP.EGD_ITS ---
Patient Name: Orlando Echevarria Procedure Date: 06/19/2022 10:54 AM Date of : 1975 Age: 47 Procedure: Upper GI endoscopy Indications: Follow-up of Evans's esophagus Providers: Santos Terrazas DO Referring MD: Jah Rey Medicines: Monitored Anesthesia Care Patient Profile: This is a 47 year old male. Refer to note in patient chart for documentation of history and physical. Patient has symptoms of chronic heartburn. Complications: No immediate complications. Procedure: Pre-Anesthesia Assessment: - Prior to the procedure, a History and Physical was performed, and patient medications and allergies were reviewed. The risks and benefits of the procedure and the sedation options and risks were discussed with the patient. All questions were answered and informed consent was obtained. Patient identification and proposed procedure were verified by the physician in the pre-procedure area. Mental Status Examination: alert and oriented. Airway Examination: normal oropharyngeal airway and neck mobility. Respiratory Examination: clear to auscultation. CV Examination: normal. Prophylactic Antibiotics: The patient does not require prophylactic antibiotics. Prior Anticoagulants: The patient has taken no previous anticoagulant or antiplatelet agents. ASA Grade Assessment: II - A patient with mild systemic disease. After reviewing the risks and benefits, the patient was deemed in satisfactory condition to undergo the procedure. The anesthesia plan was to use monitored anesthesia care (MAC). Immediately prior to administration of medications, the patient was re-assessed for adequacy to receive sedatives. The heart rate, respiratory rate, oxygen saturations, blood pressure, adequacy of pulmonary ventilation, and response to care were monitored throughout the procedure. The physical status of the patient was re-assessed after the procedure. After obtaining informed consent, the endoscope was passed under direct vision. Throughout the procedure, the patient's blood pressure, pulse, and oxygen saturations were monitored continuously. The Colonoscope was introduced through the mouth, and advanced to the second part of duodenum. The upper GI endoscopy was accomplished without difficulty. The patient tolerated the procedure well. Scope In: 11:06:11 AM Scope Out: 11:10:03 AM Total Procedure Duration Time 0 hours 3 minutes 52 seconds Findings: There were esophageal mucosal changes secondary to established long-segment Evans's disease present in the lower third of the esophagus. The maximum longitudinal extent of these mucosal changes was 4 cm in length. Mucosa was biopsied with a cold forceps for histology in a targeted manner at intervals of 1 cm in the lower third of the esophagus. One specimen bottle was sent to pathology. Verification of patient identification for the specimen was done. Estimated blood loss was minimal. A small hiatal hernia was present. Diffuse prominent gastric folds were found in the entire examined stomach. No gross lesions were noted in the first portion of the duodenum. Impression: - Esophageal mucosal changes secondary to established long-segment Evans's disease. Biopsied. - Small hiatal hernia. - Enlarged gastric folds. - No gross lesions in the first portion of the duodenum. Recommendation: - Discharge patient to home. - Resume previous diet. - Continue present medications. - Await pathology results. - Repeat upper endoscopy in 1 year for surveillance. Procedure Code(s): --- Professional --- 87475, Esophagogastroduodenoscopy, flexible, transoral; with biopsy, single or multiple CPT copyright 2017 [employer]. All rights reserved. The codes documented in this report are preliminary and upon medical biller/coder review may be revised to meet current compliance requirements. Santos Terrazas DO 06/19/2022 11:28:54 AM This report has been signed electronically. Number of Addenda: 0 Note Initiated On: 06/19/2022 10:54 AM
--- NOTE | 2022-06-19 11:30 | OP.CCLET_ITS ---
06/19/2022 Jah Rey [address] [place] [address] Re : Upper GI endoscopy procedure for Orlando Echevarria Dear Dr. Rey This procedure was performed on June. My impressions and recommendations are as follows: Impressions : - Esophageal mucosal changes secondary to established long-segment Evans's disease. Biopsied. - Small hiatal hernia. - Enlarged gastric folds. - No gross lesions in the first portion of the duodenum. Recommendations : - Discharge patient to home. - Resume previous diet. - Continue present medications. - Await pathology results. - Repeat upper endoscopy in 1 year for surveillance. My findings are described in the full procedure note, which is enclosed. If I can be of further assistance, please feel free to contact me at . Sincerely, Santos Terrazas, 06/19/2022 11:28:54 AM This report has been signed electronically.
--- NOTE | 2022-06-19 11:34 | OP.COLON_ITS ---
Patient Name: Orlando Echevarria Procedure Date: 06/19/2022 11:10 AM Date of : 1975 Age: 47 Procedure: Colonoscopy Indications: Screening for colorectal malignant neoplasm Providers: DO Blessing Terrazas MD: Jah Rey Medicines: Monitored Anesthesia Care Patient Profile: This is a 47 year old male. Refer to note in patient chart for documentation of history and physical. Patient has symptoms of chronic heartburn. Last Colonoscopy: date unknown. Unable to locate last colonoscopy report. Complications: No immediate complications. Procedure: Pre-Anesthesia Assessment: - Prior to the procedure, a History and Physical was performed, and patient medications and allergies were reviewed. The risks and benefits of the procedure and the sedation options and risks were discussed with the patient. All questions were answered and informed consent was obtained. Patient identification and proposed procedure were verified by the physician in the pre-procedure area. Mental Status Examination: alert and oriented. Airway Examination: normal oropharyngeal airway and neck mobility. Respiratory Examination: clear to auscultation. CV Examination: normal. Prophylactic Antibiotics: The patient does not require prophylactic antibiotics. Prior Anticoagulants: The patient has taken no previous anticoagulant or antiplatelet agents. ASA Grade Assessment: II - A patient with mild systemic disease. After reviewing the risks and benefits, the patient was deemed in satisfactory condition to undergo the procedure. The anesthesia plan was to use monitored anesthesia care (MAC). Immediately prior to administration of medications, the patient was re-assessed for adequacy to receive sedatives. The heart rate, respiratory rate, oxygen saturations, blood pressure, adequacy of pulmonary ventilation, and response to care were monitored throughout the procedure. The physical status of the patient was re-assessed after the procedure. After I obtained informed consent, the scope was passed under direct vision. Throughout the procedure, the patient's blood pressure, pulse, and oxygen saturations were monitored continuously. The colonoscope was introduced through the anus and advanced to the ascending colon. The colonoscopy was performed without difficulty. The patient tolerated the procedure well. The quality of the bowel preparation was inadequate. Scope In: 11:19:27 AM Scope Out: 11:22:17 AM Total Procedure Duration Time 0 hours 2 minutes 50 seconds Findings: The perianal and digital rectal examinations were normal. Many small and large-mouthed diverticula were found in the recto-sigmoid colon, sigmoid colon and descending colon. The entire examined colon appeared normal. Extensive amounts of stool was found in the entire colon, precluding visualization. The exam was otherwise without abnormality. Impression: - Preparation of the colon was inadequate. - Diverticulosis in the recto-sigmoid colon, in the sigmoid colon and in the descending colon. - The entire examined colon is normal. - Stool in the entire examined colon. - The examination was otherwise normal. - No specimens collected. Recommendation: - Discharge patient to home (ambulatory). - Resume previous diet. - Continue present medications. - Repeat colonoscopy in 6 months because the bowel preparation was suboptimal. Procedure Code(s): --- Professional --- 88854, 53, Colonoscopy, flexible; diagnostic, including collection of specimen(s) by brushing or washing, when performed (separate procedure) CPT copyright 2017 [employer]. All rights reserved. The codes documented in this report are preliminary and upon referral nurse review may be revised to meet current compliance requirements. Santos Terrazas DO 06/19/2022 11:34:06 AM This report has been signed electronically. Number of Addenda: 0 Note Initiated On: 06/19/2022 11:10 AM
--- NOTE | 2022-06-19 11:35 | OP.CCLET_ITS ---
06/19/2022 Jah Rey [address] [place] [address] Re : Colonoscopy procedure for Orlando Echevarria Dear Dr. Rey This procedure was performed on June. My impressions and recommendations are as follows: Impressions : - Preparation of the colon was inadequate. - Diverticulosis in the recto-sigmoid colon, in the sigmoid colon and in the descending colon. - The entire examined colon is normal. - Stool in the entire examined colon. - The examination was otherwise normal. - No specimens collected. Recommendations : - Discharge patient to home (ambulatory). - Resume previous diet. - Continue present medications. - Repeat colonoscopy in 6 months because the bowel preparation was suboptimal. My findings are described in the full procedure note, which is enclosed. If I can be of further assistance, please feel free to contact me at . Sincerely, Santos Friend, 06/19/2022 11:34:06 AM This report has been signed electronically.
== END 2022-06-19 12:18 | disposition home or self-care (01) ==
LOC: EN 09:50 → AC 09:50
PROVIDERS: PCP Internal Medicine; Referring Provider Internal Medicine; Visit Provider Internal Medicine Gastroenterology
PROC: 0DJD8ZZ Inspection of Lower Intestinal Tract, Via Natural or Artificial Opening Endoscopic (ICD-10-PCS; CPT 45378; principal; 2022-06-19 10:55)
DX: Z12.11 Encounter for screening for malignant neoplasm of colon (principal); E10.43 Type 1 diabetes mellitus with diabetic autonomic (poly)neuropathy; B18.2 Chronic viral hepatitis C; Z79.4 Long term (current) use of insulin; K22.70 Barrett's esophagus without dysplasia; K59.00 Constipation, unspecified; K57.30 Diverticulosis of large intestine without perforation or abscess without bleeding; K21.00 Gastro-esophageal reflux disease with esophagitis, without bleeding; K44.9 Diaphragmatic hernia without obstruction or gangrene; K31.84 Gastroparesis; I10 Essential (primary) hypertension; E03.9 Hypothyroidism, unspecified; F17.200 Nicotine dependence, unspecified, uncomplicated; Z79.890 Hormone replacement therapy; Z79.899 Other long term (current) drug therapy
CPT/HCPCS: G0121; 43239; 82962; 88305; 88313; 88341; 88342; J7120; J2405

== ENCOUNTER → 2022-11-03 | Outpatient (CLI) | payer MEDICARE, MEDICAID, SELFPAY ==
[2022-11-03 15:36] LABS: Erythrocyte Sedimentation Rate 17 mm/hr (0-20)
[2022-11-03 16:16] LABS: AST(SGOT) 9 U/L (15-37); Alanine Aminotransfer ALT/SGPT 13 U/L (16-61); Albumin, Serum 3.6 g/dL (3.2-5.0); Alkaline Phosphatase 89 U/L (45-117); CRP < 2.90 mg/L (0.0-3.0); Ferritin 22 ng/mL (26-388); Globulin 3.7 g/dL (2.2-4.2); LDH 218 U/L (87-241); Protein, Total 7.3 g/dL (6.4-8.2)
[2022-11-05 14:09] LABS: HCV Quant. RNA PCR HCV Not Detected IU/mL (.)
== END | disposition home or self-care (01) ==
LOC: LAB 14:43
PROVIDERS: PCP Internal Medicine; Referring Provider Nurse Practitioner Adult Health; Visit Provider Nurse Practitioner Adult Health
DX: B19.20 Unspecified viral hepatitis C without hepatic coma (principal); E46 Unspecified protein-calorie malnutrition; R11.10 Vomiting, unspecified
CPT/HCPCS: 36415; 80076; 82728; 83615; 85610; 85652; 86140; 87522

== ENCOUNTER 2022-12-11 10:15 | Outpatient (RCR) | payer MEDICARE, MEDICAID, SELFPAY ==
[2022-12-04 10:14] VITALS: BP 155/103; PULSE 98; RESP 16; TEMP 36.3; BMI 23.6
--- NOTE | 2022-12-04 10:31 | WC ---
PT UNSURE OF MEDS. DIDN'T BRING LIST.
--- NOTE | 2022-12-04 17:39 | PCM.WC.HP ---
History of Present Illness Date of Service: 12/04/22 Chief Complaint: left leg ulcer History of Wound: Mr. Echevarria is a 47 year-old who presents to the wound center due to nonhealing left stump ulcer. He states that it has been present for about a year. Has tried some measures at home without any significant improvement. Easy bleeding on contact with his prosthesis. Chronic history of tobacco use. Also history of uncontrolled diabetes. He feels well otherwise, no chills, fever or change in bowel habit. Recently established with endocrinology and is working towards better diabetes control. [facility] Medical History (Updated 12/04/22 @ 17:[address] Myah Bazzi MD) Alcohol abuse Amputation of left lower extremity below knee Anemia Anxiety Arthritis Asthma Back pain due to injury Bladder disease Cellulitis (~09/15/21) Charcot ankle Charcot foot due to diabetes mellitus Chest pain Chronic pain Current use of insulin Depression Diabetes Diabetes mellitus Dietary restriction Difficulty chewing Gastroparesis GERD (gastroesophageal reflux disease) Hearing loss, left Hearing loss, right Hepatitis History of left below knee amputation History of stress test Hypertension Hypothyroidism Injury of back Insulin dependent diabetes mellitus Marijuana use Migraines MRSA infection Neuropathy 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 Open wound Osteoporosis Pancreatitis Polyneuropathy due to type 1 diabetes mellitus Restless legs Rheumatoid arthritis Seizures Smoker Stroke Substance abuse Thyroid disease Tobacco use disorder Type 1 diabetes Uses wheelchair Vision loss of left eye Vision loss of right eye Wound discharge Home Medications gabapentin 300 mg capsule 300 mg PO 4X/DAY nerve pain 08/13/20 [History Last Taken 06/18/22] pantoprazole 40 mg tablet,delayed release 40 mg PO DAILY gerd 08/13/20 [History Last Taken 06/18/22] levothyroxine 25 mcg tablet 25 mcg PO DAILY thyroid 09/15/21 [History Last Taken 06/18/22] sertraline 50 mg tablet (Zoloft) 50 mg PO DAILY 03/05/22 [History Last Taken 06/18/22] amitriptyline 25 mg tablet 25 mg PO QHS 06/17/22 [History Last Taken 06/18/22] amlodipine 5 mg tablet 5 mg PO DAILY 11/17/22 [History Last Taken Unknown] flash glucose sensor (FreeStyle Maikel 2 Sensor kit) #1 ea 11/17/22 [Rx Last Taken Unknown] insulin glargine 100 unit/mL (3 mL) subcutaneous pen (Lantus Solostar U-100 Insulin) 35 unit subcut QHS 11/17/22 [History Last Taken Unknown] insulin lispro 100 unit/mL subcutaneous pen (Humalog KwikPen (U-100) Insulin) 10 unit subcut TID 11/17/22 [History Last Taken Unknown] lisinopril 20 mg tablet 40 mg PO DAILY 11/17/22 [History Last Taken Unknown] mupirocin 2 % topical ointment 1 applic topical BID 11/17/22 [History Last Taken Unknown] sofosbuvir 400 mg-velpatasvir 100 mg tablet (Epclusa) 1 tab PO DAILY 11/17/22 [History Last Taken Unknown] Allergy/AdvReac Type Severity Reaction Status Date / Time No Known Allergies Allergy Verified 12/04/22 10:35 Family History Other Cancer Diabetes Heart disease Surgical History H/O tooth extraction History of bilateral cataract extraction Social History Smoking Status: Current every day smoker tobacco type: cigarettes ROS Constitutional Constitutional: Denies fatigue, frequent falls, headache(s), increased appetite, lethargy or malaise Eyes Eyes: Denies change in eye color, decreased night vision, diplopia, discharge from eye(s), discongugate gaze, double vision or dry eyes ENT HEENT: Denies ear pain, epistaxis, facial pain, foreign body in nose, halitosis, headache(s), hearing loss, hoarseness or mouth pain Cardiovascular Cardiovascular: Denies claudication, clubbing, cold extremities, cyanosis, diaphoresis, dizziness or dyspnea at rest Respiratory/Chest Respiratory/Chest: Denies difficulty clearing secretions, dusky skin, dyspnea on exertion, excessive phlegm production, hemoptysis, hoarseness or inability to speak Gastrointestinal Gastrointestinal: Denies chewing difficulty, cramping, diarrhea, dry heaves, dyspepsia, dysphagia or early satiety Genitourinary Genitourinary: Denies flank pain, hematuria, low back pain, painful ejaculations, penile discharge or penile swelling Musculoskeletal Musculoskeletal: Denies extremity pain, loss of height, muscle cramps, muscle weakness, numbness or radiating pain into limb Integumentary Integumentary: Denies hirsutism, jaundice, lesions, nail changes, new lesions, non-healing lesions, photosensitivity or pruritus Neurologic Neurologic: Denies burning sensations, convulsions, disequilibrium, dizziness, focal weakness, frequent falls, headache(s) or lack of coordination Psychiatric Psychiatric: Denies behavioral changes, depression, difficulty concentrating, hallucinations, homicidal ideation, hopelessness or irritability Endocrine Endocrinology: Denies deepening of the voice, excessive sweating, fatigue, flushing, heat intolerance, increase in ring/shoe/hat size or palpitations Hematologic/Lymphatic Hematologic/Lymphatic: Denies easy bleeding or lymphadenopathy Allergic/Immunologic Allergic/Immunologic: Denies lip swelling, throat swelling, tongue swelling, hives, urticaria, eczemia or asthma Vital Signs Vital Signs Vital Signs: 12/04/22 10:14 Temperature 97.3 F L Temperature Source Temporal Pulse Rate 98 Respiratory Rate 16 Blood Pressure 155/103 H Blood Pressure Mean 120 Blood Pressure Source Monitor Blood Pressure Position Sitting Blood Pressure Location Left Arm Oxygen Delivery Method Room Air Weight Weight: 160 lb Body Mass Index (BMI) 23.6 Physical Exam Const alert, oriented x3 and no apparent distress General Appearance: cooperative and comfortable HEENT normocephalic, head/scalp atraumatic and hearing grossly normal bilaterally Eyes EOMs intact bilaterally General Eye: normal appearance of both eyes Neck full ROM and supple General: normal visual inspection Resp normal respiratory effort and normal air movement Effort and Inspection: able to speak in complete sentences Cardio regular rate, regular rhythm, S1 normal heart sound and S2 normal heart sound GI soft to palpation and non-tender Extremity no pedal edema Skin Wounds: wounds noted Neuro oriented x3, CN's II-XII intact bilaterally, moves all extremities and no focal motor deficits Psych mental status grossly normal, thought process normal, cooperative and affect normal Debridement Note Debridement Note Wound debrided: Left BKA stump Type of Debridement: Excisional debridement Anesthesia Used: 4% Lidocaine Solution Depth: Down to and including healthy tissue and in the subcutaneous layer Percentage of wound debrided: 100 Tissue Removed: Slough and devitalized tissue Severity: Fat Layer Exposed Amount of bleeding with debridement: Mild Bleeding Controlled with: Pressure Patient tolerated procedure: Patient tolerated procedure well Post-Debridement Measurements and Additional Note: Post-Debridement Measurements/Treatment - Nurse 1 - General Ulcer Assessment Start: 12/04/22 10:13 Freq: Status: Active Protocol: SAMANTHA Activity Type Activity Date Activity User E-sign Co-sign Detail Recorded Client Recorded Date Recorded By Document 12/04/22 10:14 [facility] [id number] 12/04/22 10:31 [facility] 12/04/22 10:14 - Today's Visit Information Type of service Initial Visit Arrival Mode Wheelchair Transfer Assistance None Accompanied by ADOPTED MOTHER Patient Identification Verified (Name & Yes ) Patient Requires Transmission-Based No Precautions Finger Stick Blood Sugar(mg/dl) (if 101 indicated): Blood Sugar Stated by Patient Height and Weight Height 5 ft 9 in Weight 160 lb Weight in Pounds 160.0 lbs Weight Measurement Method Estimated by Patient Body Mass Index (BMI) 23.6 BMI Classification Normal BSA - [place] 1.88 Vital Signs Temperature (97.8 F-99.1 F) 97.3 F L Temperature Source Temporal Pulse Rate (60-100) 98 Pulse Location Monitor Respiratory Rate (12-18) 16 Respiratory rate source Observation Oxygen Delivery Method Room Air Blood Pressure (90/60-120/80) 155/103 H Blood Pressure Mean 120 Source Monitor Position Sitting Blood Pressure Location Left Arm History Since Last Visit- (Skip if this is Patient's initial visit) Right Footwear Regular Shoe Other Footwear L BKA Pain Scale: 0-10 Numeric Is Patient Pain Free? Yes Lower Extremity Assessment/ Foot Assessment/ Toe Nail Assessment Right -Posterior Tibial Palpable No -Posterior Tibial Doppler Inaudible -Dorsalis Pedis Palpable No -Dorsalis Pedis Doppler Inaudible -Extremity Color Pale -Hair Growth on Legs No -Hair Growth on Toes No -Temperature of Extremity Cold -Thick No -Discolored No -Deformed No -Improper Length & Hygeine No Left -Lower Extremity Comment (If N/A Above L BKA ) Communication Assessment Preferred language British Digital Sales Representative Required No Able to Read Yes Able to Write Yes Communication Tools None Right Hearing Abillity Normal Left Hearing Abillity Normal Visual Assistive Devices Glasses Teaching Assessment Preferences Verbal,Written, Audio/Visual, Demonstration Barriers to Learning None Readiness To Learn Excellent Willingness to Engage in Self Management High Activies Readiness to Engage in Self Management High Activities Anxiety Level Calm Cooperation Cooperative Perception Coherent Interest in Health Problem Asks Questions Education Importance Acknowledges Need Does Patient Smoke tobacco or other No substances Smoking Status Current every day smoker Is Patient Diabetic Yes Culture/Hindu/Manager File Cultural/Hindu Needs that may affect No Treatment Plan WC - Nurse 1 - General Ulcer Measurement Start: 12/04/22 10:13 Freq: Status: Active Protocol: Activity Type Activity Date Activity User E-sign Co-sign Detail Recorded Client Recorded Date Recorded By Document 12/04/22 10:14 [facility] [id number] 12/04/22 10:31 [facility] 12/04/22 10:14 Wound Center Nurse 1 #2- L STUMP/BKA -Combined with other wound No -Current Size (cm) - Length 0.8 -Current Size (cm) - Width 0.8 -Current Size (cm) - Depth 0.1 -Total Square Cm 0.64 -Date of Last Picture (Recall this 12/04/22 field) -Photo Taken Yes -Epithelialization None Present -Tunneling No -Undermining/Tunneling No -Circular Undermining No -Exudate Amt None Present -Wound Margin Distinct, Outline Attached -Granulation Amt None Present (0 %) -Slough/Fibrin Yes -Necrosis Amt Large (67-100%) -Necrotic Tissue Type Eschar -Texture (Eliza-wound Skin Appearance) Assessed, Scarring -Moisture (Eliza-wound Skin Appearance) Assessed -Color (Eliza-wound Skin Appearance) Assessed -Temperature (Eliza-wound Skin No Abnormality Appearance) (Pt Warm) -Tenderness on Palpation (Eliza-wound No Skin Appearance) -Ulcer Cleansing Rinsed/ Irrigated with Saline -Foul Odor after Cleansing No -Anesthetic Used 5% Lidocaine Gel WC - Nurse 2 - General Ulcer CM Notes Start: 12/04/22 10:13 Freq: Status: Active Protocol: Activity Type Activity Date Activity User E-sign Co-sign Detail Recorded Client Recorded Date Recorded By Document 12/04/22 10:53 [id number] 12/04/22 10:59 12/04/22 10:53 Wound Center Nurse 2 -Time 10:56 -Correct Patient Yes -Correct Side, Site, Position Yes -Correct Procedure Yes -Procedure Performed Yes -Type of Procedure Debridement -Clinical Debridement Subcutaneous -Tissue Removed Subcutaneous -Post Debridement (cm) - Length 0.5 -Post Debridement (cm) - Width 1.0 -Post Debridement (cm) - Depth 0.1 -Total Square (Post) (cm) 0.50 -Area of Debridement (cm) - Length 0.5 -Area of Debridement (cm) - Width 1.0 -Total Square (Area) (cm) 0.50 -Tunneling No -Undermining/Tunneling No -Circular Undermining No -Wound/Ulcer Outcome Not Healed -Ulcer Cleansing Rinsed/ Irrigated with Saline -Foul Odor after Cleansing No -Bioengineered Tissue No -Bleeding Controlled with Pressure -Treatment Response Procedure Tolerated Well -Offloading No -Assistive Device(s) Wheelchair -Debridement - Subq, 1st 20sq cm Yes Pain Scale: 0-10 Numeric Is Patient Pain Free? Yes - Nurse 3 - General Ulcer D/C NN Start: 12/04/22 10:13 Freq: Status: Active Protocol: Activity Type Activity Date Activity User E-sign Co-sign Detail Recorded Client Recorded Date Recorded By Document 12/04/22 11:25 [id number] 12/04/22 11:26 12/04/22 11:25 Wound Care Center Nurse 3 #2- L STUMP/BKA -Ulcer Cleansing Rinsed/ Irrigated with Saline -Primary Dressing Applied Mepilex Border, Promogran Diana Matter -Mepilex Border 1 -Promogran Diana Matter 1 Treatment Response Procedure Tolerated Well Pain Scale: 0-10 Numeric Is Patient Pain Free? Yes - Visit Discharge Discharge Condition Stable Ambulatory Status Wheelchair Transportation Private Auto Medication Reconcilliation completed & No provided to patient/care provider Clinical Summary of Care Provided Yes Charges/Coding Visit Charges Office Visits / Consults: [id number] OV L4 Est Procedures Integumentary [id number]: [id number] Nayla subq tissue 20 sq cm/< Assessment/Plan Assessment/Plan 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: CODE(S): L97.922 - Non-pressure chronic ulcer of unspecified part of left lower leg with fat layer exposed (2) DM type 1 (diabetes mellitus, type 1): CODE(S): E10.9 - Type 1 diabetes mellitus without complications QUALIFIERS: Diabetes mellitus complication status: with hyperglycemia Qualified Code(s): E10.65 - Type 1 diabetes mellitus with hyperglycemia (3) Tobacco use disorder: CODE(S): F17.200 - Nicotine dependence, unspecified, uncomplicated (4) 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 No significant extension with internal cavity on probing. No clinical signs of infection. Promogran daily, cover with foam or ABD. Offloading recommended. Most importantly optimal diabetes control and smoking cessation very, very strongly recommended. He voiced understanding and as above states that he is working with endocrinology on diabetes control. Increase protein intake, vitamin C, D and zinc. His questions were answered and he was advised to call with any further questions or concerns. This note was generated with [employer]News[employer] software. It may contain incorrect words, spelling, and punctuation that were not noted in checking the note before signing.
[2022-12-11 10:00] VITALS: BP 146/103; PULSE 106; RESP 16; TEMP 35.5; BMI 23.6
--- NOTE | 2022-12-11 10:59 | PCM.WC.PN ---
History of Present Illness Date of Service: 12/11/22 Chief Complaint: left leg ulcer History of Wound: Mr. Echevarria is a 47 year-old who presents to the wound center due to nonhealing left stump ulcer. He states that it has been present for about a year. Has tried some measures at home without any significant improvement. Easy bleeding on contact with his prosthesis. Chronic history of tobacco use. Also history of uncontrolled diabetes. He feels well otherwise, no chills, fever or change in bowel habit. Recently established with endocrinology and is working towards better diabetes control. Progress of Wound: No new concerns at this time. Improving. Objective Data Objective Data Vital Signs: Vital Signs Temp Pulse Resp BP O2 Del Method 96 F L 106 H 16 146/103 H Room Air 12/11/22 10:00 12/11/22 10:00 12/11/22 10:00 12/11/22 10:00 12/11/22 10:00 Oxygen Delivery Method Room Air Weight: 160 lb Body Mass Index (BMI) 23.6 Charges/Coding Procedures Integumentary 111xxx-113xx: [id number] Nayla subq tissue 20 sq cm/< Physical Exam Const alert, oriented x3 and no apparent distress General Appearance: cooperative and comfortable HEENT normocephalic, head/scalp atraumatic and hearing grossly normal bilaterally Eyes EOMs intact bilaterally General Eye: normal appearance of both eyes Neck full ROM and supple General: normal visual inspection Resp normal respiratory effort and normal air movement Effort and Inspection: able to speak in complete sentences Cardio regular rate, regular rhythm, S1 normal heart sound and S2 normal heart sound GI soft to palpation and non-tender Extremity no pedal edema Skin Wounds: wounds noted Neuro oriented x3, CN's II-XII intact bilaterally, moves all extremities and no focal motor deficits Psych mental status grossly normal, thought process normal, cooperative and affect normal Debridement Note Debridement Note Wound debrided: Left BKA stump Type of Debridement: Excisional debridement Anesthesia Used: 4% Lidocaine Solution Depth: Down to and including healthy tissue and in the subcutaneous layer Percentage of wound debrided: 100 Tissue Removed: Slough and devitalized tissue Severity: Fat Layer Exposed Amount of bleeding with debridement: Mild Bleeding Controlled with: Pressure Patient tolerated procedure: Patient tolerated procedure well Post-Debridement Measurements and Additional Note: Post-Debridement Measurements/Treatment WC - Nurse 1 - General Ulcer Assessment Start: 12/04/22 10:13 Freq: Status: Active Protocol: WC.LOWEXT Activity Type Activity Date Activity User E-sign Co-sign Detail Recorded Client Recorded Date Recorded By Document 12/04/22 10:14 [facility] [id number] 12/04/22 10:31 BM Document 12/11/22 10:00 [facility] [id number] 12/11/22 10:06 [facility] 12/04/22 12/11/22 10:14 10:00 - Today's Visit Information Type of service Initial Visit 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 ) Arrival Mode Wheelchair Wheelchair Transfer Assistance None None Accompanied by ADOPTED MOTHER Patient Identification Verified (Name & Yes Yes ) Patient Requires Transmission-Based No No Precautions Finger Stick Blood Sugar(mg/dl) (if 101 indicated): Blood Sugar Stated by Patient Height and Weight Height 5 ft 9 in Weight 160 lb Weight in Pounds 160.0 lbs Weight Measurement Method Estimated by Patient Body Mass Index (BMI) 23.6 23.6 BMI Classification Normal Normal BSA - Kingsley 1.88 Vital Signs Temperature (97.8 F-99.1 F) 97.3 F L 96 F L Temperature Source Temporal Temporal Pulse Rate (60-100) 98 106 H Pulse Location Monitor Monitor Respiratory Rate (12-18) 16 16 Respiratory rate source Observation Observation Oxygen Delivery Method Room Air Room Air Blood Pressure (90/60-120/80) 155/103 H 146/103 H Blood Pressure Mean (mm Hg) 120 117 Source Monitor Monitor Position Sitting Sitting Blood Pressure Location Left Arm Left Arm History Since Last Visit- (Skip if this is Patient's initial visit) Have you changed medications since your No last visit? Any new allergies or adverse reactions No Had a fall/change in ADL's that may No increase risk of falls Signs or symptoms of abuse and/or No neglect since last visit Have you been in the hospital since your No last visit? Has compression in place as prescribed N/A Has offloadiing in place as prescribed N/A Experienced any changes in pain level or No management Right Footwear Regular Shoe Other Footwear L BKA Pain Scale: 0-10 Numeric Is Patient Pain Free? Yes Yes Lower Extremity Assessment/ Foot Assessment/ Toe Nail Assessment Right -Posterior Tibial Palpable No -Posterior Tibial Doppler Inaudible -Dorsalis Pedis Palpable No -Dorsalis Pedis Doppler Inaudible -Extremity Color Pale -Hair Growth on Legs No -Hair Growth on Toes No -Temperature of Extremity Cold -Thick No -Discolored No -Deformed No -Improper Length & Hygeine No Left -Lower Extremity Comment (If N/A Above L BKA ) Communication Assessment Preferred language [place] Secretary Required No Able to Read Yes Able to Write Yes Communication Tools None Right Hearing Abillity Normal Left Hearing Abillity Normal Visual Assistive Devices Glasses Teaching Assessment Preferences Verbal,Written, Audio/Visual, Demonstration Barriers to Learning None Readiness To Learn Excellent Willingness to Engage in Self Management High Activies Readiness to Engage in Self Management High Activities Anxiety Level Calm Cooperation Cooperative Perception Coherent Interest in Health Problem Asks Questions Education Importance Acknowledges Need Does Patient Smoke tobacco or other No substances Smoking Status Current every day smoker Is Patient Diabetic Yes 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 Cultural/Yarsanism Needs that may affect No Treatment Plan WC - Nurse 1 - General Ulcer Measurement Start: 12/04/22 10:13 Freq: Status: Active Protocol: Activity Type Activity Date Activity User E-sign Co-sign Detail Recorded Client Recorded Date Recorded By Document 12/04/22 10:14 [facility] [id number] 12/04/22 10:31 [facility] Document 12/11/22 10:00 [facility] [id number] 12/11/22 10:06 [facility] 12/04/22 12/11/22 10:14 10:00 Wound Center Nurse 1 #2- L STUMP/BKA -Combined with other wound No No -Current Size (cm) - Length 0.8 0.1 -Current Size (cm) - Width 0.8 0.1 -Current Size (cm) - Depth 0.1 0.1 -Total Square Cm 0.64 0.01 -Date of Last Picture (Recall this 12/04/22 12/11/22 field) -Photo Taken Yes Yes -Epithelialization None Present None Present -Tunneling No No -Undermining/Tunneling No No -Circular Undermining No No -Exudate Amt None Present Medium -Exudate Type Serosanguineous -Wound Margin Distinct, Distinct, Outline Outline Attached Attached -Granulation Amt None Present (0 None Present (0 %) %) -Slough/Fibrin Yes Yes -Necrosis Amt Large (67-100%) Large (67-100%) -Necrotic Tissue Type Eschar Eschar -Texture (Eliza-wound Skin Appearance) Assessed, Assessed, Scarring Scarring -Moisture (Eliza-wound Skin Appearance) Assessed Assessed -Color (Eliza-wound Skin Appearance) Assessed Assessed -Temperature (Eliza-wound Skin No Abnormality No Abnormality Appearance) (Pt Warm) (Pt Warm) -Tenderness on Palpation (Eliza-wound No No Skin Appearance) -Ulcer Cleansing Rinsed/ Rinsed/ Irrigated with Irrigated with Saline Saline -Foul Odor after Cleansing No No -Anesthetic Used 5% Lidocaine 5% Lidocaine Gel Gel WC - Nurse 2 - General Ulcer CM Notes Start: 12/04/22 10:13 Freq: Status: Active Protocol: Activity Type Activity Date Activity User E-sign Co-sign Detail Recorded Client Recorded Date Recorded By Document 12/04/22 10:53 [id number] 12/04/22 10:59 JF Document 12/11/22 10:54 MW [id number] 12/11/22 10:55 MW 12/04/22 12/11/22 10:53 10:54 Wound Center Nurse 2 #2- L STUMP/BKA -Time 10:56 10:54 -Correct Patient Yes Yes -Correct Side, Site, Position Yes Yes -Correct Procedure Yes Yes -Procedure Performed Yes Yes -Type of Procedure Debridement Debridement -Clinical Debridement Subcutaneous Subcutaneous -Tissue Removed Subcutaneous Subcutaneous -Post Debridement (cm) - Length 0.5 0.6 -Post Debridement (cm) - Width 1.0 0.3 -Post Debridement (cm) - Depth 0.1 0.1 -Total Square (Post) (cm) 0.50 0.18 -Area of Debridement (cm) - Length 0.5 0.6 -Area of Debridement (cm) - Width 1.0 0.3 -Total Square (Area) (cm) 0.50 0.18 -Tunneling No No -Undermining/Tunneling No No -Circular Undermining No No -Wound/Ulcer Outcome Not Healed Not Healed -Ulcer Cleansing Rinsed/ Rinsed/ Irrigated with Irrigated with Saline Saline -Foul Odor after Cleansing No No -Bioengineered Tissue No No -Bleeding Controlled with Pressure Pressure -Treatment Response Procedure Procedure Tolerated Well Tolerated Well -Offloading No No -Assistive Device(s) Wheelchair -Debridement - Subq, 1st 20sq cm Yes Yes Pain Scale: 0-10 Numeric Is Patient Pain Free? Yes Yes WC - Nurse 3 - General Ulcer D/C NN Start: 12/04/22 10:13 Freq: Status: Active Protocol: Activity Type Activity Date Activity User E-sign Co-sign Detail Recorded Client Recorded Date Recorded By Document 12/04/22 11:25 RB [id number] 12/04/22 11:26 RB Document 12/11/22 10:57 MW [id number] 12/11/22 10:57 MW 12/04/22 12/11/22 11:25 10:57 Wound Care Center Nurse 3 #2- L STUMP/BKA -Ulcer Cleansing Rinsed/ Rinsed/ Irrigated with Irrigated with Saline Saline -Foul Odor after Cleansing No -Negative Pressure Wound Therapy N/A -Primary Dressing Applied Mepilex Border, Mepilex Border, Promogran Promogran Diana Matter Diana Matter -Mepilex Border 1 1 -Promogran Diana Matter 1 1 Treatment Response Procedure Procedure Tolerated Well Tolerated Well Pain Scale: 0-10 Numeric Is Patient Pain Free? Yes Yes Teaching: Wound Center Dressing Your Wound -Person Taught Patient -Teaching Method Discussion -Response to teaching Verbalize understanding WC - Visit Discharge Discharge Condition Stable Stable Ambulatory Status Wheelchair Wheelchair Transportation Private Auto Private Auto Accompanied by friend Medication Reconcilliation completed & No No provided to patient/care provider Clinical Summary of Care Provided Yes Yes Assessment/Plan Assessment/Plan 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: CODE(S): L97.922 - Non-pressure chronic ulcer of unspecified part of left lower leg with fat layer exposed (2) DM type 1 (diabetes mellitus, type 1): CODE(S): E10.9 - Type 1 diabetes mellitus without complications QUALIFIERS: Diabetes mellitus complication status: with hyperglycemia Qualified Code(s): E10.65 - Type 1 diabetes mellitus with hyperglycemia (3) Tobacco use disorder: CODE(S): F17.200 - Nicotine dependence, unspecified, uncomplicated (4) 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 Some improvement noted. Continue Promogran daily, cover with foam or ABD. Offloading recommended. Increase protein intake, vitamin C, D and zinc. His questions were answered and he was advised to call with any further questions or concerns. This note was generated with [employer] dictation software. It may contain incorrect words, spelling, and punctuation that were not noted in checking the note before signing.
== END 2022-12-17 23:59 | disposition home or self-care (01) ==
LOC: WC 10:15
PROVIDERS: PCP Internal Medicine; Referring Provider Internal Medicine Endocrinology, Diabetes & Metabolism; Visit Provider Internal Medicine
DX: E10.622 Type 1 diabetes mellitus with other skin ulcer (principal); T87.89 Other complications of amputation stump; Z89.512 Acquired absence of left leg below knee; L97.922 Non-pressure chronic ulcer of unspecified part of left lower leg with fat layer exposed; E10.42 Type 1 diabetes mellitus with diabetic polyneuropathy; E10.65 Type 1 diabetes mellitus with hyperglycemia; Z79.4 Long term (current) use of insulin; I10 Essential (primary) hypertension; E03.9 Hypothyroidism, unspecified; K21.9 Gastro-esophageal reflux disease without esophagitis; G89.29 Other chronic pain; Z79.890 Hormone replacement therapy; Z79.899 Other long term (current) drug therapy; F17.210 Nicotine dependence, cigarettes, uncomplicated
CPT/HCPCS: 11042; 99213; G0463

== ENCOUNTER 2022-12-18 09:49 | Outpatient (RCR) | payer MEDICARE, MEDICAID, SELFPAY ==
[2022-12-18 00:43] VITALS: BP 146/103; PULSE 106; RESP 16; TEMP 35.5; BMI 23.6
[2022-12-18 09:53] VITALS: BP 125/93; PULSE 92; RESP 18; TEMP 36.4; BMI 23.6
--- NOTE | 2022-12-18 10:40 | PN.PCM_ITS ---
History of Present Illness Date of Service: 12/18/22 Chief Complaint: left leg ulcer History of Wound: Mr. Echevarria is a 47 year-old who presents to the wound center due to nonhealing left stump ulcer. He states that it has been present for about a year. Has tried some measures at home without any significant improvement. Easy bleeding on contact with his prosthesis. Chronic history of tobacco use. Also history of uncontrolled diabetes. He feels well otherwise, no chills, fever or change in bowel habit. Recently established with endocrinology and is working towards better diabetes control. Progress of Wound: No new concerns at this time. Essentially healed. Objective Data Objective Data Vital Signs: Vital Signs Temp Pulse Resp BP 97.6 F L 92 18 125/93 H 12/18/22 09:53 12/18/22 09:53 12/18/22 09:53 12/18/22 09:53 Weight: 160 lb Body Mass Index (BMI) 23.6 Charges/Coding Visit Charges Office Visits / Consults: [id number] OV L3 Est Physical Exam Const alert, oriented x3 and no apparent distress General Appearance: cooperative and comfortable HEENT normocephalic, head/scalp atraumatic and hearing grossly normal bilaterally Eyes EOMs intact bilaterally General Eye: normal appearance of both eyes Neck full ROM and supple General: normal visual inspection Resp normal respiratory effort and normal air movement Effort and Inspection: able to speak in complete sentences Extremity no pedal edema Neuro oriented x3, CN's II-XII intact bilaterally, moves all extremities and no focal motor deficits Psych mental status grossly normal, thought process normal, cooperative and affect normal Debridement Note Debridement Note Post-Debridement Measurements and Additional Note: Post-Debridement Measurements/Treatment - Nurse 1 - General Ulcer Assessment Start: 12/18/22 09:53 Freq: Status: Active Protocol: DESTIN.LOWEXT Activity Type Activity Date Activity User E-sign Co-sign Detail Recorded Client Recorded Date Recorded By Document 12/18/22 09:53 DL [id number] 12/18/22 09:58 DL 12/18/22 09:53 - Today's Visit Information Type of service 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 ) Arrival Mode Wheelchair Transfer Assistance None Patient Identification Verified (Name & Yes ) Patient Requires Transmission-Based No Precautions Height and Weight Body Mass Index (BMI) 23.6 BMI Classification Normal Vital Signs Temperature (97.8 F-99.1 F) 97.6 F L Temperature Source Temporal Pulse Rate (60-100) 92 Pulse Location Monitor Respiratory Rate (12-18) 18 Respiratory rate source Observation Blood Pressure (90/60-120/80) 125/93 H Blood Pressure Mean (mm Hg) 103 Source Monitor History Since Last Visit- (Skip if this is Patient's initial visit) Have you changed medications since your No last visit? Any new allergies or adverse reactions No Had a fall/change in ADL's that may No increase risk of falls Signs or symptoms of abuse and/or No neglect since last visit Have you been in the hospital since your No last visit? Has dressing in place as prescribed Yes Has compression in place as prescribed N/A Has offloadiing in place as prescribed Yes Experienced any changes in pain level or No management Left Footwear No Footwear Pain Scale: 0-10 Numeric Is Patient Pain Free? Yes WC - Nurse 1 - General Ulcer Measurement Start: 12/18/22 09:53 Freq: Status: Active Protocol: Activity Type Activity Date Activity User E-sign Co-sign Detail Recorded Client Recorded Date Recorded By Document 12/18/22 09:53 DL [id number] 12/18/22 09:58 DL 12/18/22 09:53 Wound Center Nurse 1 #2- L STUMP/BKA -Current Size (cm) - Length 0.1 -Current Size (cm) - Width 0.1 -Current Size (cm) - Depth 0.1 -Total Square Cm 0.01 -Photo Taken Yes -Exudate Amt None Present -Wound Margin Thickened -Granulation Amt Large (67-100%) -Granulation Quality Pale -Necrosis Amt None Present (0 %) -Structure Exposed N/A -Texture (Eliza-wound Skin Appearance) Scarring -Moisture (Eliza-wound Skin Appearance) No Abnormality -Color (Eliza-wound Skin Appearance) No Abnormality -Ulcer Cleansing Soap and Water -Foul Odor after Cleansing No -Anesthetic Used 5% Lidocaine Gel WC - Nurse 2 - General Ulcer CM Notes Start: 12/18/22 09:53 Freq: Status: Active Protocol: Activity Type Activity Date Activity User E-sign Co-sign Detail Recorded Client Recorded Date Recorded By Document 12/18/22 10:14 MW [id number] 12/18/22 10:15 MW 12/18/22 10:14 Wound Center Nurse 2 -Time 10:14 -Correct Patient Yes -Correct Side, Site, Position Yes -Correct Procedure Yes -Procedure Performed No -Post Debridement (cm) - Length 0 -Post Debridement (cm) - Width 0 -Post Debridement (cm) - Depth 0 -Total Square (Post) (cm) 0 -Wound/Ulcer Outcome Healed- Epithelialized Pain Scale: 0-10 Numeric Is Patient Pain Free? Yes WC - Nurse 3 - General Ulcer D/C NN Start: 12/18/22 09:53 Freq: Status: Active Protocol: Activity Type Activity Date Activity User E-sign Co-sign Detail Recorded Client Recorded Date Recorded By Document 12/18/22 10:15 MW [id number] 12/18/22 10:16 MW 12/18/22 10:15 Wound Care Center Nurse 3 #2- L STUMP/BKA -Ulcer Cleansing Rinsed/ Irrigated with Saline -Foul Odor after Cleansing No -Negative Pressure Wound Therapy N/A -Primary Dressing Applied NonAdherent Contact Layer, Promogran -Promogran 1 Treatment Response Procedure Tolerated Well Pain Scale: 0-10 Numeric Is Patient Pain Free? Yes Teaching: Wound Center Discharge Instructions -Person Taught Patient -Teaching Method Discussion -Response to teaching Verbalize understanding WC - Visit Discharge Discharge Condition Stable Ambulatory Status Wheelchair Transportation Private Auto Medication Reconcilliation completed & No provided to patient/care provider Clinical Summary of Care Provided Yes Assessment/Plan Assessment/Plan 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: CODE(S): L97.922 - Non-pressure chronic ulcer of unspecified part of left lower leg with fat layer exposed (2) DM type 1 (diabetes mellitus, type 1): CODE(S): E10.9 - Type 1 diabetes mellitus without complications QUALIFIERS: Diabetes mellitus complication status: with hyperglycemia Qualified Code(s): E10.65 - Type 1 diabetes mellitus with hyperglycemia (3) Tobacco use disorder: CODE(S): F17.200 - Nicotine dependence, unspecified, uncomplicated (4) 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 Very minimal area left. Crusting debrided. Continue moistened Promogran daily, adaptic and cover with foam or ABD x 2 weeks. Then, Adaptic and foam for 2 more weeks. Offloading recommended. Increase protein intake, vitamin C, D and zinc. His questions were answered and he was advised to call with any further questions or concerns. Discharge from the wound center. This note was generated with [employer] dictation software. It may contain incorrect words, spelling, and punctuation that were not noted in checking the note before signing.
== END 2022-12-18 15:40 | disposition home or self-care (01) ==
LOC: WC 09:49
PROVIDERS: PCP Internal Medicine; Referring Provider Internal Medicine Endocrinology, Diabetes & Metabolism; Visit Provider Internal Medicine
DX: Z09 Encounter for follow-up examination after completed treatment for conditions other than malignant neoplasm (principal); E10.65 Type 1 diabetes mellitus with hyperglycemia; Z79.4 Long term (current) use of insulin; F17.200 Nicotine dependence, unspecified, uncomplicated; Z79.890 Hormone replacement therapy; Z79.899 Other long term (current) drug therapy
CPT/HCPCS: 99213; G0463

== ENCOUNTER → 2024-02-10 | Outpatient (CLI) | payer MEDICARE, MEDICAID, SELFPAY ==
[2024-02-10 17:30] LABS: Vitamin D,25 Hydroxy 29.1 ng/mL
[2024-02-10 17:42] LABS: AST(SGOT) 19 U/L (15-37); Alanine Aminotransfer ALT/SGPT 20 U/L (16-61); Albumin, Serum 3.6 g/dL (3.2-5.0); Alkaline Phosphatase 90 U/L (45-117); Anion Gap 5 (5-15); BUN 19 mg/dL (7-18); BUN/Creat Ratio 25.3 RATIO (10-20); Calcium,Total 9.4 mg/dL (8.5-10.1); Chloride 103 mmol/L (98-107); Cholesterol 107 mg/dL (200); Creatinine, Serum 0.75 mg/dL (0.70-1.30); EST Glomerular Filtration Rate 117 mL/min (>60); Est Glom Filt Rate - Afr Amer 142 mL/min (>60); Globulin 3.7 g/dL (2.2-4.2); Glucose 317 mg/dL (74-106); High Density Lipoprotein 60 mg/dL; Potassium 5.1 mmol/L (3.5-5.1); Protein, Total 7.3 g/dL (6.4-8.2); Sodium Level 138 mmol/L (136-145); T4 Free Direct 1.35 ng/dL (0.76-1.46); Thyroid Stim Hormone (TSH) 1.32 uIU/mL (0.358-3.74); Triglycerides 90 mg/dL; Very Low Density Lipoprotein 18 mg/dL (5-40)
== END | disposition home or self-care (01) ==
PROVIDERS: PCP Internal Medicine; Referring Provider Nurse Practitioner Family; Visit Provider Nurse Practitioner Family
DX: I10 Essential (primary) hypertension (principal); E10.9 Type 1 diabetes mellitus without complications; E55.9 Vitamin D deficiency, unspecified
CPT/HCPCS: 36415; 80053; 80061; 82306; 84439; 84443

== ENCOUNTER → 2024-05-02 | Outpatient (CLI) | payer MEDICARE, MEDICAID, SELFPAY ==
[2024-05-02 18:15] LABS: ALB/GLOB Ratio 1.1 RATIO (0.9-2.4); AST(SGOT) 13 U/L (15-37); Alanine Aminotransfer ALT/SGPT 19 U/L (16-61); Alkaline Phosphatase 91 U/L (45-117); Anion Gap 6 (5-15); BUN 13 mg/dL (7-18); BUN/Creat Ratio 13.8 RATIO (10-20); Calcium,Total 9.8 mg/dL (8.5-10.1); Chloride 99 mmol/L (98-107); Creatinine, Serum 0.94 mg/dL (0.70-1.30); EST Glomerular Filtration Rate 90 mL/min (>60); Est Glom Filt Rate - Afr Amer 109 mL/min (>60); Globulin 3.5 g/dL (2.2-4.2); Glucose 223 mg/dL (74-106); Potassium 3.6 mmol/L (3.5-5.1); Protein, Total 7.5 g/dL (6.4-8.2); Sodium Level 133 mmol/L (136-145)
== END | disposition home or self-care (01) ==
PROVIDERS: PCP Internal Medicine; Referring Provider Nurse Practitioner Family; Visit Provider Nurse Practitioner Family
DX: E87.5 Hyperkalemia (principal)
CPT/HCPCS: 36415; 80053

== ENCOUNTER 2024-06-14 21:47 | Emergency (ER) | payer MEDICARE, MEDICAID, SELFPAY ==
[2024-06-14 21:49] VITALS: BP 167/110; PULSE 105; RESP 20; TEMP 36.4; O2SAT 99
--- NOTE | 2024-06-14 22:24 | RAD_ITS ---
INDICATION: Left-sided rib pain after fall EXAMINATION/TECHNIQUE: X-RAY - XR Ribs Unilateral W/ PA Chest Min 3 Views COMPARISON: 12/11/2021 FINDINGS: SOFT TISSUES: No soft tissue swelling or gas. BONES: Single view shows cortical irregularity suspicious for nondisplaced fracture left fourth rib laterally. No sclerotic or destructive changes observed. VISUALIZED LUNGS: Clear. No pneumothorax. RAD/Ribs Uni Min 3V w/PA Chest IMPRESSION: Probable nondisplaced fracture left fourth rib laterally. Electronically Signed: Duarte Pickard MD at 0:10 EST ,
--- NOTE | 2024-06-14 22:28 | EX.ED.DYSGE1 ---
HPI History of Present Illness Chief Complaint: Numb/Ting Informant: patient and EMS Narrative Narrative: Patient states he presents with multiple different issues. He lives in an apartment he is in and out of a wheelchair because of a Charcot foot on the right as well as a bad right knee and status post left BKA, and he has a home health aide that comes 3 times a week. He states he has chronic diabetic neuropathy in both feet and both hands as well as his right forearm from the elbow down to the hand. He is a type I diabetic. He has been having blood sugar issues because his Dexcom nova does not work and so he has been intermittently checking his blood sugar and feeding the numbers into his insulin pump, but he is not checking his sugar multiple times daily, for the last 1 or 2 weeks it has been mostly in the 300s, tonight in the 500s which he states is unusually high for him recently. Today he slept all day from 6 AM to 8 PM presents here around 10 PM, and he has not eaten anything and has not given himself any insulin. He states about a week ago he started having numbness and tingling in his head and face, diffuse bilateral nonlateralizing, and along with this the painful paresthesias in his right forearm and hand have been worse. Those symptoms have been persistent. He denies headache or vision change or any other new focal neurologic symptoms. For 5 days ago, states he was getting out of his wheelchair and feeling tired and a little weak, his right knee may have been why he fell which has happened before, states as he was getting out he fell to both of his knees, and then he sort of gently laid himself down on the right side without an apparent other injury, his knees have been okay, but within 30 or 60 minutes of the fall, he started having pain in the left side of his chest and has been there persistently, he states it feels like it injured muscle. He told his aide, his aide advised him to come to the ER if he got worse. States is not dyspnea, and he does not have a cough. He can move around without any severe pain in his left chest that is just been persistent. He has not noticed that moving makes it hurt worse. He also states he has been belching and it has been foul-smelling like sulfur but denies any abdominal pain, nausea, vomiting, diarrhea, blood [place] of the rectum, or melena. He also states his urine has been extremely dark and unusual for him even darker than usual given the pot that I use. 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 Tobacco use disorder Polyneuropathy due to type 1 diabetes mellitus Wound discharge MRSA infection Marijuana use Open wound Thyroid disease Insulin dependent diabetes mellitus Arthritis Uses wheelchair Bladder disease Injury of back Difficulty chewing Dietary restriction Amputation of left lower extremity below knee Type 1 diabetes Current use of insulin Back pain due to injury Stroke Restless legs History of stress test Gastroparesis Vision loss of right eye Vision loss of left eye Hearing loss, left Hearing loss, right Anemia Substance abuse Alcohol abuse Anxiety Depression Hypothyroidism Diabetes Chronic pain Rheumatoid arthritis Osteoporosis Pancreatitis GERD (gastroesophageal reflux disease) Hepatitis Smoker Asthma Chest pain Hypertension Migraines Seizures Charcot foot due to diabetes mellitus Charcot ankle Neuropathy Cellulitis (~09/15/21) Diabetes mellitus Home Medications ?Medication ?Instructions ?Recorded ?Last Taken ?Type gabapentin 300 mg capsule 300 mg PO 4X/DAY nerve pain 08/13/20 06/18/22 History pantoprazole 40 mg tablet,delayed 40 mg PO DAILY gerd 08/13/20 06/18/22 History release sertraline 50 mg tablet (Zoloft) 50 mg PO DAILY 03/05/22 06/18/22 History amitriptyline 25 mg tablet 25 mg PO QHS 06/17/22 06/18/22 History insulin glargine 100 unit/mL (3 35 unit (0.35 mL) subcut QHS #31.5 09/23/23 Unknown Rx mL) subcutaneous pen (Lantus mL Solostar U-100 Insulin) lisinopril 40 mg tablet 40 mg PO QDAY 11/11/23 Unknown History insulin lispro 100 unit/mL 15 unit (0.15 mL) subcut TID #40.5 01/28/24 Unknown Rx subcutaneous pen (Humalog KwikPen mL (U-100) Insulin) insulin pump cartridge,automated #1 ea 02/10/24 Unknown Rx dose,BT with controller subcutaneous (Omnipod 5 G6 Intro Kit (Gen 5) subcutaneous cartridge with controller) levothyroxine 25 mcg tablet 25 mcg PO DAILY thyroid #90 tabs 02/12/24 Unknown Rx amlodipine 10 mg tablet 10 mg PO DAILY #90 tabs 03/09/24 Unknown Rx insulin lispro 100 unit/mL 60 unit (0.6 mL) continuous 04/06/24 Unknown Rx subcutaneous solution (Humalog subcutaneous infusion .continuous U-100 Insulin) #54 mL insulin pump cart,automated,BT #10 ea 04/06/24 Unknown Rx (Omnipod 5 G6 Pods (Gen 5) subcutaneous cartridge) blood-glucose sensor (Dexcom G6 #3 ea 04/07/24 Unknown Rx Sensor device) blood-glucose transmitter (Dexcom #1 ea 04/07/24 Unknown Rx G6 Transmitter device) atorvastatin 20 mg tablet 20 mg PO QHS #90 tabs 05/02/24 Unknown Rx blood sugar diagnostic (OneTouch #100 ea 05/02/24 Unknown Rx Verio test strips) blood-glucose meter (OneTouch #1 ea 05/02/24 Unknown Rx Verio Reflect Meter) cholecalciferol (vitamin D3) 125 125 mcg PO QDAY #90 caps 05/02/24 Unknown Rx mcg (5,000 unit) capsule insulin pump cart,auto,BT,G6/7 #10 ea 05/23/24 Unknown Rx (Omnipod 5 G6-G7 Pods (Gen 5) subcutaneous cartridge) Allergy/AdvReac Type Severity Reaction Status Date / Time No Known Allergies Allergy Verified 06/14/24 21:49 Family History Other Cancer Diabetes Heart disease Surgical History History of bilateral cataract extraction H/O tooth extraction History of left below knee amputation Social History Smoking Status: Current every day smoker tobacco type: cigarettes ROS ROS ED Constitutional Constitutional ED: Reports fatigue and malaise; Denies chills or fever(s) Eyes Eyes: Denies change in vision or diplopia ENT ENT ED: Denies rhinorrhea or sore throat Cardiovascular Cardiovascular: Reports as per HPI and chest pain; Denies palpitations Respiratory/Chest Respiratory/Chest: Denies cough or dyspnea Gastrointestinal Gastrointestinal: Denies abdominal pain, diarrhea, melena, nausea or vomiting Genitourinary Genitourinary ED: Reports as per HPI and decreased urination; Denies dysuria, hematuria or low back pain Musculoskeletal Musculoskeletal: Reports as per HPI and extremity pain; Denies back pain or neck pain Integumentary Denies abscess or rash Neurologic Neurologic: Reports as per HPI and paresthesias; Denies headache(s) or weakness Psychiatric Psychiatric: Denies suicidal thoughts EXAM Physical Exam Const Vital Signs: 06/14/24 21:49 06/14/24 23:39 06/14/24 23:42 Temperature 97.6 F L Temperature Source Temporal Pulse Rate 105 H 97 Respiratory Rate 20 H 20 H Blood Pressure 167/110 H 148/114 H Blood Pressure Mean 129 125 Pulse Ox 99 98 Oxygen Delivery Method Room Air 06/15/24 01:00 06/15/24 02:22 Temperature 98.3 F Temperature Source Pulse Rate 85 108 H Respiratory Rate 17 20 H Blood Pressure 139/88 H 136/97 H Blood Pressure Mean 105 110 Pulse Ox 100 99 Oxygen Delivery Method Room Air Positive well nourished and well developed General Appearance ED: well developed and NAD HEENT Reports moist mucous membranes normocephalic and atraumatic Eyes PERRL and EOMs intact bilaterally Neck full ROM and supple Chest Wall inspection of chest normal Chest Narrative: Tender left anterior lateral chest pectoral musculature in addition to the inframammary chest wall. No subcutaneous emphysema no crepitance. No sternal tenderness. Pain reproduced with active abduction of his hands together with his arms outstretched in front of him. Resp normal respiratory effort and clear to auscultation bilaterally Resp Narrative: No splinting with deep inspiration. Speaking full sentences. Cardio regular rate, regular rhythm and no murmurs GI non-tender and non-distended Auscultation: normoactive bowel sounds Palpation: soft Back/Spine no CVA tenderness General Back: other FROM Extremity normal to inspection Extremity Narrative: Status post left BKA. Chronic appearing right foot deformity without tenderness or signs of erythema/infection or wound. Full range of motion of both knees. Intact distal pulses x 4. General Extremety ED: Negative for edema, pulses abnormal or tenderness General Extremity: Negative for edema or pulses abnormal Neuro oriented x3, CN's II-XII intact bilaterally and no sensory deficits noted Neuro Narrative: Keenly alert and conversive Sensorium / Orientation: awake and alert Motor Exam: strength 5/5 throughout Psych mental status grossly normal Skin no rashes or lesions noted and no wounds MDM MDM MDM Narrative Medical decision making narrative: Patient is mostly concerned about the tingling throughout his entire head and face. Given his peripheral neuropathy could be related to that, it could also be related to his blood sugars or other metabolic disturbance, but I reassured him I do not think he is having a stroke since it is simultaneously bilateral without other acute neurologic symptoms. We did give him some insulin and monitor his blood sugar. Also obtain serum ketones since he was positive in the urine, and a venous blood gas. Those are normal, his anion gap is 8 within normal limits, therefore he is not in DKA. Obtain 5 view x-ray series of the left rib cage including PA chest, on my interpretation no pneumonia, I do not see an acute rib fracture or pneumothorax although radiology states they question the possibility of a nondisplaced rib fracture in the fourth rib laterally. As I discussed with the patient, treatment is the same if this is a nondisplaced rib fracture versus a muscle strain. Urine shows no infection. His EKG and troponin show no evidence of acute coronary syndrome. He was given some tramadol for his pain which helped as well as insulin and fluids, we got his blood sugar down, I think he is stable for discharge home. Lab Data Attestation: I reviewed the patient's lab results. Labs: Laboratory Results - last 24 hr 06/14/24 06/14/24 06/15/24 23:30 23:45 00:57 WBC 9.4 RBC 4.56 L Hgb 13.5 Hct 40.1 MCV 87.9 MCH 29.6 MCHC 33.7 RDW Std Deviation 42.4 RDW Coeff of Candace 13.1 Plt Count 166 MPV 11.1 Immature Gran % (Auto) 0.300 Neut % (Auto) 66.4 Lymph % (Auto) 18.6 L [place] % (Auto) 8.0 Eos % (Auto) 5.5 H Baso % (Auto) 1.2 H Absolute Neuts (auto) 6.3 Absolute Lymphs (auto) 1.75 Nucleated RBC % 0 Sodium 134 L Potassium 4.7 Chloride 99 Carbon Dioxide 27.0 Anion Gap 8 BUN 14 Creatinine 0.81 Est GFR (MDRD) Af Amer 129 Est GFR (MDRD) Non-Af 107 BUN/Creatinine Ratio 17.2 Glucose 379 H Calcium 8.5 Total Bilirubin 0.40 AST 14 L ALT 16 Alkaline Phosphatase 89 Troponin I High Sens 8 Total Protein 6.4 Albumin 3.5 Globulin 2.9 Albumin/Globulin Ratio 1.2 Urine Color Yellow Urine Clarity Clear Urine pH 6.5 Ur Specific [place] 1.015 Urine Protein 15 H Urine Glucose (UA) 1000 H Urine Ketones 15 H Urine Occult Blood 10 H Urine Nitrite Negative Urine Bilirubin Negative Urine Urobilinogen Normal Ur Leukocyte Esterase Negative Urine RBC 0 SEEN Urine WBC 0 SEEN Ur Squamous Epith Cells 0 SEEN Urine Bacteria 0 SEEN Urine Mucus 0 SEEN Acetone Level NEGATIVE POC Glucose 334 H 06/15/24 02:03 WBC RBC Hgb Hct MCV MCH MCHC RDW Std Deviation RDW Coeff of [place] Plt Count MPV Immature Gran % (Auto) Neut % (Auto) Lymph % (Auto) [place] % (Auto) Eos % (Auto) Baso % (Auto) Absolute Neuts (auto) Absolute Lymphs (auto) Nucleated RBC % Sodium Potassium Chloride Carbon Dioxide Anion Gap BUN Creatinine Est GFR (MDRD) Af Amer Est GFR (MDRD) Non-Af BUN/Creatinine Ratio Glucose Calcium Total Bilirubin AST ALT Alkaline Phosphatase Troponin I High Sens Total Protein Albumin Globulin Albumin/Globulin Ratio Urine Color Urine Clarity Urine pH Ur Specific [place] Urine Protein Urine Glucose (UA) Urine Ketones Urine Occult Blood Urine Nitrite Urine Bilirubin Urine Urobilinogen Ur Leukocyte Esterase Urine RBC Urine WBC Ur Squamous Epith Cells Urine Bacteria Urine Mucus Acetone Level POC Glucose 278 H ABG Data ABG results: ABG 06/14/24 23:41 Specimen Type JULIO Sample Site Not entered O2 % 21.0 VBG pH 7.39 VBG pO2 30 VBG HCO3 26 VBG Total CO2 27 VBG O2 Sat (Calc) 57 VBG Base Excess 1 POC Mix VBG pCO2 Pt Tmp 42.4 O2 Delivery Device Room Air Radiography Diagnostic Testing: Clinical Impression(s) from Imaging Studies Ribs w/Chest X-Ray 06/14/24 22:24 IMPRESSION: Probable nondisplaced fracture left fourth rib laterally. Electronically Signed: Duarte Pickard MD at 0:10 EST , Rhythm Strip Rhythm Strip: Sinus Rhythm Rate: 90 Ectopy: PVC(s) EKG Initial EKG: Attestation: I personally reviewed and interpreted this EKG as follows: Interpretation: Sinus Rhythm and No Acute Injury Pattern Comments: Nml axis & intervals; nml EKG except for several PVCs Discharge Plan Triage Chief Complaint: Numb/Ting ED Provider: Parish Tyler Dx/Rx/DC Orders Clinical Impression: Hyperglycemia due to type 1 diabetes mellitus, Polyneuropathy due to type 1 diabetes mellitus, Paresthesias, Left-sided chest wall pain Instructions: ED Diabetic Hyperglycemia, ED Rib Contusion or Minor Fracture Prescriptions: No Action sertraline [Zoloft] 50 mg tablet 50 mg PO DAILY lisinopril 40 mg tablet 40 mg PO QDAY (DME) Omnipod 5 G6 Intro Kit (Gen 5) Cartridge See Rx Instructions .Route Qty: 1 0RF Rx Instructions: As directed (DME) blood-glucose meter [OneTouch Verio Reflect Meter] Misc See Rx Instructions .Route Qty: 1 0RF Rx Instructions: As directed (DME) OneTouch Verio test strips Strip See Rx Instructions .Route Qty: 100 5RF Rx Instructions: TID cholecalciferol (vitamin D3) 125 mcg (5,000 unit) capsule 125 mcg PO QDAY Qty: 90 1RF atorvastatin 20 mg tablet 20 mg PO QHS Qty: 90 1RF pantoprazole 40 MG tablet 40 mg PO DAILY gabapentin 300 MG capsule 300 mg PO 4X/DAY amitriptyline 25 mg Tablet 25 mg PO QHS insulin glargine [Lantus Solostar U-100 Insulin] 100 unit/mL (3 mL) insulin pen 35 unit subcut QHS Qty: 31.5 1RF insulin lispro [Humalog KwikPen Insulin] 100 unit/mL insulin pen 15 unit subcut TID Qty: 40.5 1RF levothyroxine 25 mcg tablet 25 mcg PO DAILY Qty: 90 1RF amlodipine 10 mg tablet 10 mg PO DAILY Qty: 90 1RF (DME) Omnipod 5 G6 Pods (Gen 5) Cartridge See Rx Instructions .Route Qty: 10 2RF Rx Instructions: 1 pod q 3 days insulin lispro [Humalog U-100 Insulin] 100 unit/mL solution 60 unit continuous subcutaneous infusion .continuous Qty: 54 1RF (DME) Dexcom G6 Transmitter Device See Rx Instructions .Route Qty: 1 1RF Rx Instructions: 1 sensor q 90 days (DME) Dexcom G6 Sensor Device See Rx Instructions .Route Qty: 3 5RF Rx Instructions: 1 sensor q 10 days (DME) Omnipod 5 G6-G7 Pods (Gen 5) Cartridge See Rx Instructions .Route Qty: 10 5RF Rx Instructions: change q 3 russo Primary Care Provider: Jah Rey Referrals: Jah Rey MD [Primary Care Provider] - As soon as possible Print Language: Tajik Disposition Disposition: Home, Self Care Discharge Date/Time: 06/15/24 03:41
[2024-06-14 23:39] VITALS: BP 148/114
[2024-06-14] MEDS: Insulin Lispro 100 UNIT/ML INSULN.PEN 16 UNIT SC (23:40)
[2024-06-14] MEDS: traMADol 50 MG Tablet PO (23:40)
[2024-06-14 23:42] VITALS: PULSE 97; RESP 20; O2SAT 98
[2024-06-14 23:45] LABS: Blood Gas Specimen Type VEN; O2 Delivery Device Room Air; SITE Not entered; VBG BASE EXCESS 1 mmol/L (-1.0-3.5); VBG Bicarbonate 26 mmol/L (22-26); VBG PO2 30 mmHg (25-40); VBG SO2 57 % (50-70); VBG TCO2 27 mmol/L (23-33); VBG pCO2 42.4 mmHg (41-51); VBG pH 7.39 (7.32-7.42)
[2024-06-14 23:48] LABS: Absolute Lymphocyte Count 1.75 X10^3/uL (0.83-4.51); Absolute Neutrophil Count 6.3 X10^3/uL (2.0-7.7); Basophil# 0.11 X10^3/uL; Basophil% 1.2 % (0-1); Eosinophil# 0.52 X10^3/uL; Eosinophils% 5.5 % (0-5); Hematocrit 40.1 % (40-54); Hemoglobin 13.5 g/dL (13.0-16.5); Lymphocyte # 1.75 X10^3/ul (0.83-4.51); Lymphocyte % 18.6 % (19-41); Mean Corp Hgb Conc 33.7 g/dL (32-36); Mean Corpuscular Hgb 29.6 pg (27.0-32.0); Mean Corpuscular Volume 87.9 fL (80-94); Mean Platelet Vol. 11.1 fl (6.2-12.0); Monocyte# 0.75 X10^3/uL; NRBC Flagged by Analyzer 0 % (0-5); Neutrophil # 6.26 X10^3/uL (2.7-7.7); Neutrophil % 66.4 % (47-70); Platelet Count 166 K/mm3 (150-450); RBC Distribution Width CV 13.1 % (11.6-14.6); RBC Distribution Width SD 42.4 fl (35.1-43.9); Red Blood Count 4.56 M/mm3 (4.6-6.2); White Blood Count 9.4 K/mm3 (4.4-11.0)
[2024-06-15 00:06] LABS: Bacteria 0 SEEN /hpf (None Seen); Mucous, Urine 0 SEEN /hpf (<or=2+); Red Blood Cells-Urine 0 SEEN /hpf (0-5); Squamous Epithelial Cells - UA 0 SEEN /hpf (0-5); White Blood Cells 0 SEEN /hpf (0-5)
[2024-06-15 00:11] LABS: ALB/GLOB Ratio 1.2 RATIO (0.9-2.4); AST(SGOT) 14 U/L (15-37); Alanine Aminotransfer ALT/SGPT 16 U/L (16-61); Albumin, Serum 3.5 g/dL (3.2-5.0); Alkaline Phosphatase 89 U/L (45-117); Anion Gap 8 (5-15); BUN 14 mg/dL (7-18); BUN/Creat Ratio 17.2 RATIO (10-20); Calcium,Total 8.5 mg/dL (8.5-10.1); Chloride 99 mmol/L (98-107); Creatinine, Serum 0.81 mg/dL (0.70-1.30); EST Glomerular Filtration Rate 107 mL/min (>60); Est Glom Filt Rate - Afr Amer 129 mL/min (>60); Globulin 2.9 g/dL (2.2-4.2); Glucose 379 mg/dL (74-106); Potassium 4.7 mmol/L (3.5-5.1); Protein, Total 6.4 g/dL (6.4-8.2); Sodium Level 134 mmol/L (136-145); Troponin-I HS 8 pg/mL (3.0-78.0)
[2024-06-15 00:12] LABS: Color, Urine Yellow (Yellow); Glucose, Dipstick 1000 mg/dl (Normal); Ketone-Dipstick 15 mg/dl (Negative); Leukocyte Esterase-Dipstick Negative /ul (Negative); Nitrite-Dipstick Negative (Negative); Occult Blood-Urine 10 /ul (Negative); Protein-Dipstick 15 mg/dl (Negative); Specific Gravity, Urine 1.015 (1.002-1.030); Urine Bilirubin Dipstick Negative (Negative); Urine Clarity Clear (Clear); Urine Urobilinogen Normal (Normal); Urine pH 6.5 (5.0 - 8.0)
[2024-06-15 01:00] VITALS: BP 139/88; PULSE 85; RESP 17; O2SAT 100
[2024-06-15] MEDS: Insulin Lispro 100 UNIT/ML INSULN.PEN 14 UNIT SC (01:07)
[2024-06-15 01:15] LABS: Bedside Glucose 334 mg/dL (74-106)
[2024-06-15 02:04] VITALS: BMI 24.8
[2024-06-15 02:22] VITALS: BP 136/97; PULSE 108; RESP 20; TEMP 36.8; O2SAT 99
[2024-06-15 02:27] LABS: Bedside Glucose 278 mg/dL (74-106)
== END 2024-06-15 03:41 | disposition home or self-care (01) ==
PROVIDERS: Emergency Provider Emergency Medicine; PCP Internal Medicine; Visit Provider Emergency Medicine
DX: E10.65 Type 1 diabetes mellitus with hyperglycemia (principal); Z89.512 Acquired absence of left leg below knee; E10.42 Type 1 diabetes mellitus with diabetic polyneuropathy; Z96.41 Presence of insulin pump (external) (internal); R07.89 Other chest pain; R20.2 Paresthesia of skin; I10 Essential (primary) hypertension; F17.210 Nicotine dependence, cigarettes, uncomplicated; Z79.899 Other long term (current) drug therapy
CPT/HCPCS: 71101; 80053; 81001; 82009; 82803; 82962; 84484; 85025; 93005; 99283; A4216

== ENCOUNTER 2024-06-19 07:41 | Emergency (ER) | payer MEDICARE, MEDICAID, SELFPAY ==
[2024-06-19 07:43] VITALS: BP 152/101; PULSE 110; RESP 24; TEMP 36.6; O2SAT 100; BMI 25.7
--- NOTE | 2024-06-19 07:55 | EX.ED.DYSGE1 ---
HPI History of Present Illness Chief Complaint: Hyperglycemia Informant: patient Onset/Context/Timing Onset: Today Narrative Narrative: 49-year-old male history of insulin-dependent diabetes type 1 with gastroparesis substance abuse. No recent hospitalization. Has occasional nausea and vomiting but has not the last several days. Was seen in the emergency department had a full evaluation on the which was unremarkable. Currently the phone nova to go to his insulin pump is not working so he has not been checking his blood sugars for the last month or 2. Denies any fever. No other complaints. 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 Tobacco use disorder Polyneuropathy due to type 1 diabetes mellitus Wound discharge MRSA infection Marijuana use Open wound Thyroid disease Insulin dependent diabetes mellitus Arthritis Uses wheelchair Bladder disease Injury of back Difficulty chewing Dietary restriction Amputation of left lower extremity below knee Type 1 diabetes Current use of insulin Back pain due to injury Stroke Restless legs History of stress test Gastroparesis Vision loss of right eye Vision loss of left eye Hearing loss, left Hearing loss, right Anemia Substance abuse Alcohol abuse Anxiety Depression Hypothyroidism Diabetes Chronic pain Rheumatoid arthritis Osteoporosis Pancreatitis GERD (gastroesophageal reflux disease) Hepatitis Smoker Asthma Chest pain Hypertension Migraines Seizures Charcot foot due to diabetes mellitus Charcot ankle Neuropathy Cellulitis (~09/15/21) Diabetes mellitus Home Medications ?Medication ?Instructions ?Recorded ?Last Taken ?Type gabapentin 300 mg capsule 300 mg PO 4X/DAY nerve pain 08/13/20 06/18/22 History pantoprazole 40 mg tablet,delayed 40 mg PO DAILY gerd 08/13/20 06/18/22 History release sertraline 50 mg tablet (Zoloft) 50 mg PO DAILY 03/05/22 06/18/22 History amitriptyline 25 mg tablet 25 mg PO QHS 06/17/22 06/18/22 History insulin glargine 100 unit/mL (3 35 unit (0.35 mL) subcut QHS #31.5 09/23/23 Unknown Rx mL) subcutaneous pen (Lantus mL Solostar U-100 Insulin) lisinopril 40 mg tablet 40 mg PO QDAY 11/11/23 Unknown History insulin lispro 100 unit/mL 15 unit (0.15 mL) subcut TID #40.5 01/28/24 Unknown Rx subcutaneous pen (Humalog KwikPen mL (U-100) Insulin) insulin pump cartridge,automated #1 ea 02/10/24 Unknown Rx dose,BT with controller subcutaneous (Omnipod 5 G6 Intro Kit (Gen 5) subcutaneous cartridge with controller) levothyroxine 25 mcg tablet 25 mcg PO DAILY thyroid #90 tabs 02/12/24 Unknown Rx amlodipine 10 mg tablet 10 mg PO DAILY #90 tabs 03/09/24 Unknown Rx insulin lispro 100 unit/mL 60 unit (0.6 mL) continuous 04/06/24 Unknown Rx subcutaneous solution (Humalog subcutaneous infusion .continuous U-100 Insulin) #54 mL insulin pump cart,automated,BT #10 ea 04/06/24 Unknown Rx (Omnipod 5 G6 Pods (Gen 5) subcutaneous cartridge) blood-glucose sensor (Dexcom G6 #3 ea 04/07/24 Unknown Rx Sensor device) blood-glucose transmitter (Dexcom #1 ea 04/07/24 Unknown Rx G6 Transmitter device) atorvastatin 20 mg tablet 20 mg PO QHS #90 tabs 05/02/24 Unknown Rx blood sugar diagnostic (OneTouch #100 ea 05/02/24 Unknown Rx Verio test strips) blood-glucose meter (OneTouch #1 ea 05/02/24 Unknown Rx Verio Reflect Meter) cholecalciferol (vitamin D3) 125 125 mcg PO QDAY #90 caps 05/02/24 Unknown Rx mcg (5,000 unit) capsule insulin pump cart,auto,BT,G6/7 #10 ea 05/23/24 Unknown Rx (Omnipod 5 G6-G7 Pods (Gen 5) subcutaneous cartridge) Allergy/AdvReac Type Severity Reaction Status Date / Time No Known Allergies Allergy Verified 06/19/24 07:48 Family History Other Cancer Diabetes Heart disease Surgical History History of bilateral cataract extraction H/O tooth extraction History of left below knee amputation Social History Smoking Status: Current every day smoker tobacco type: cigarettes ROS ROS ED ROS Narrative Occasional nausea and vomiting on the last few days. Constitutional Constitutional ED: Denies chills or fever(s) Eyes Eyes: Denies blurry vision ENT ENT ED: Denies ear pain Cardiovascular Cardiovascular: Denies chest pain Respiratory/Chest Respiratory/Chest: Denies cough or dyspnea Gastrointestinal Gastrointestinal: Reports nausea and vomiting; Denies abdominal pain, constipation, diarrhea or melena Genitourinary Genitourinary ED: Denies dysuria or hematuria Musculoskeletal Musculoskeletal: Denies arthralgias or back pain Integumentary Denies abscess Neurologic Neurologic: Denies headache(s) Psychiatric Psychiatric: Denies anxiety Endocrine Endocrinology: Denies cold intolerance Hematologic/Lymphatic Hematologic/Lymphatic: Reports none Allergic/Immunologic Allergic/Immunologic ED: Denies mouth swelling, tongue swelling or urticaria EXAM Physical Exam Narrative Exam Narrative: Well-appearing 49-year-old male. Vital signs are stable afebrile. H EENT exam unremarkable. Pupils round react to light. No droop. No trauma. Neck nontender. Lungs clear to auscultation bilaterally. Heart regular rhythm rate about 104 no murmur. Chest wall and rib tenderness he has a known rib fracture. There is no crepitance or subcu air. Abdomen is soft and nontender. No peritoneal signs. No distention. No hernia or mass. Moving all 4 extremities. He has an amputation of the left knee. He is awake and alert. Answering questions and following commands. He knows where he is at. Const Vital Signs: 06/19/24 07:43 06/19/24 07:47 Temperature 97.8 F Temperature Source Oral Pulse Rate 110 H Respiratory Rate 24 H Respiratory Effort Normal Non-Labored Respiratory Pattern Normal Blood Pressure 152/101 H Blood Pressure Mean 118 Pulse Ox 100 Oxygen Delivery Method Room Air Positive well nourished and well developed; Negative for cachectic, contractures or unkempt General Appearance ED: well developed and NAD; Negative for unkempt, cachectic, contractures, cyanotic or diaphoretic Nutritional Appearance: Negative for cachectic HEENT Reports moist mucous membranes Negative for trauma or tenderness Eyes PERRL and EOMs intact bilaterally General Eye ED: Negative for pale conjunctiva Neck no lymphadenopathy, supple and no JVD Chest Wall inspection of chest normal and palpation of chest normal Resp normal respiratory effort and clear to auscultation bilaterally Cardio regular rhythm, S1 normal heart sound, S2 normal heart sound and no murmurs; Negative for regular rate Rate: tachycardic GI normal to inspection, nondistended, normoactive bowel sounds, non-tender, non-distended and no masses Auscultation: normoactive bowel sounds Palpation: soft; Negative for tender, guarding or rebound tenderness present Back/Spine no CVA tenderness General Back: Negative for CVA tenderness Cervical Spine: Negative for cervical spine tenderness Thoracic Spine / Upper Back: Negative for thoracic spinal tenderness or paraspinal muscle tenderness Lumbar Spine / Lower Back: Negative for lumbar spinal tenderness Extremity normal to inspection Extremity Narrative: Left leg amputation of the knee. General Extremety ED: Yes tenderness; Negative for edema General Extremity: Negative for edema Neuro oriented x3 and CN's II-XII intact bilaterally Sensorium / Orientation: alert; Negative for orientation impaired, lethargic or stuporous Motor Exam: strength 5/5 throughout; Negative for general weakness or strength abnormal Psych mental status grossly normal Appearance: Negative for unkempt Attitude: No agitated Skin no rashes or lesions noted and no wounds General Skin Exam: Negative for jaundice Lesions: No lesion noted Rashes: No rashes noted Trauma: Negative for abrasion Wounds: Negative for wounds noted MDM MDM MDM Narrative Medical decision making narrative: 49-year-old diabetic male has a benign exam. Recent evaluation here about 5 days ago. Was unremarkable. Check a CBC and a chemistry. Repeat exam patient is doing well at 8:36 AM. His blood sugar was 378. He believes his insulin pump is working. It is attached to the medial aspect of his right inner thigh. He will be given 10 units of insulin subcu and discharged home with a ride from his son. Follow-up to have his insulin pump rechecked. Lab Data Attestation: I reviewed the patient's lab results. Lab results narrative: CBC normal. White count 8. H&H 15 and 45. Platelets 250. Electrolytes show a gap of 13. Normal BUN of 12 creatinine 0.9. Glucose 378. Labs: Laboratory Results - last 24 hr 06/19/24 06/19/24 07:50 08:09 WBC 8.7 RBC 5.14 Hgb 15.0 Hct 45.5 MCV 88.5 MCH 29.2 MCHC 33.0 RDW Std Deviation 43.5 RDW Coeff of Candace 13.4 Plt Count 250 MPV 10.9 Immature Gran % (Auto) 0.300 Neut % (Auto) 67.6 Lymph % (Auto) 23.5 [place] % (Auto) 5.1 Eos % (Auto) 2.6 Baso % (Auto) 0.9 Absolute Neuts (auto) 5.9 Absolute Lymphs (auto) 2.05 Nucleated RBC % 0 Sodium 139 Potassium 4.6 Chloride 101 Carbon Dioxide 25.0 Anion Gap 13 BUN 12 Creatinine 0.96 Estim Creat Clear Calc 92.06 Est GFR (MDRD) Af Amer 107 Est GFR (MDRD) Non-Af 88 BUN/Creatinine Ratio 12.5 Glucose 378 H Calcium 9.4 POC Glucose 362 H Discharge Plan Triage Chief Complaint: Hyperglycemia ED Provider: Esteban Tam Dx/Rx/DC Orders Prescriptions: No Action sertraline [Zoloft] 50 mg tablet 50 mg PO DAILY lisinopril 40 mg tablet 40 mg PO QDAY (DME) Omnipod 5 G6 Intro Kit (Gen 5) Cartridge See Rx Instructions .Route Qty: 1 0RF Rx Instructions: As directed (DME) blood-glucose meter [OneTouch Verio Reflect Meter] Misc See Rx Instructions .Route Qty: 1 0RF Rx Instructions: As directed (DME) OneTouch Verio test strips Strip See Rx Instructions .Route Qty: 100 5RF Rx Instructions: TID cholecalciferol (vitamin D3) 125 mcg (5,000 unit) capsule 125 mcg PO QDAY Qty: 90 1RF atorvastatin 20 mg tablet 20 mg PO QHS Qty: 90 1RF pantoprazole 40 MG tablet 40 mg PO DAILY gabapentin 300 MG capsule 300 mg PO 4X/DAY amitriptyline 25 mg Tablet 25 mg PO QHS insulin glargine [Lantus Solostar U-100 Insulin] 100 unit/mL (3 mL) insulin pen 35 unit subcut QHS Qty: 31.5 1RF insulin lispro [Humalog KwikPen Insulin] 100 unit/mL insulin pen 15 unit subcut TID Qty: 40.5 1RF levothyroxine 25 mcg tablet 25 mcg PO DAILY Qty: 90 1RF amlodipine 10 mg tablet 10 mg PO DAILY Qty: 90 1RF (DME) Omnipod 5 G6 Pods (Gen 5) Cartridge See Rx Instructions .Route Qty: 10 2RF Rx Instructions: 1 pod q 3 days insulin lispro [Humalog U-100 Insulin] 100 unit/mL solution 60 unit continuous subcutaneous infusion .continuous Qty: 54 1RF (DME) Dexcom G6 Transmitter Device See Rx Instructions .Route Qty: 1 1RF Rx Instructions: 1 sensor q 90 days (DME) Dexcom G6 Sensor Device See Rx Instructions .Route Qty: 3 5RF Rx Instructions: 1 sensor q 10 days (DME) Omnipod 5 G6-G7 Pods (Gen 5) Cartridge See Rx Instructions .Route Qty: 10 5RF Rx Instructions: change q 3 russo Primary Care Provider: Jah Rey Referrals: Jah Rey MD [Primary Care Provider] - Print Language: Estonian
[2024-06-19 08:03] LABS: Absolute Lymphocyte Count 2.05 X10^3/uL (0.83-4.51); Absolute Neutrophil Count 5.9 X10^3/uL (2.0-7.7); Basophil# 0.08 X10^3/uL; Basophil% 0.9 % (0-1); Eosinophil# 0.23 X10^3/uL; Eosinophils% 2.6 % (0-5); Hematocrit 45.5 % (40-54); Lymphocyte # 2.05 X10^3/ul (0.83-4.51); Lymphocyte % 23.5 % (19-41); Mean Corpuscular Hgb 29.2 pg (27.0-32.0); Mean Corpuscular Volume 88.5 fL (80-94); Mean Platelet Vol. 10.9 fl (6.2-12.0); Monocyte# 0.44 X10^3/uL; Monocyte% 5.1 % (0-10); NRBC Flagged by Analyzer 0 % (0-5); Neutrophil # 5.88 X10^3/uL (2.7-7.7); Neutrophil % 67.6 % (47-70); Platelet Count 250 K/mm3 (150-450); RBC Distribution Width CV 13.4 % (11.6-14.6); RBC Distribution Width SD 43.5 fl (35.1-43.9); Red Blood Count 5.14 M/mm3 (4.6-6.2); White Blood Count 8.7 K/mm3 (4.4-11.0)
[2024-06-19 08:16] LABS: Anion Gap 13 (5-15); BUN 12 mg/dL (7-18); BUN/Creat Ratio 12.5 RATIO (10-20); Calcium,Total 9.4 mg/dL (8.5-10.1); Chloride 101 mmol/L (98-107); Creatinine, Serum 0.96 mg/dL (0.70-1.30); EST Glomerular Filtration Rate 88 mL/min (>60); Est Glom Filt Rate - Afr Amer 107 mL/min (>60); Estimated Creatinine Clearance 92.06 ml/min; Glucose 378 mg/dL (74-106); Potassium 4.6 mmol/L (3.5-5.1); Sodium Level 139 mmol/L (136-145)
[2024-06-19 08:30] LABS: Bedside Glucose 362 mg/dL (74-106)
[2024-06-19 08:41] VITALS: BP 154/96; PULSE 110; RESP 16; O2SAT 96
[2024-06-19] MEDS: Insulin Lispro 100 UNIT/ML INSULN.PEN 12 UNIT SC (08:46)
[2024-06-19 08:47] VITALS: BP 154/96; PULSE 110; RESP 16; TEMP 36.7; O2SAT 96
== END 2024-06-19 09:23 | disposition home or self-care (01) ==
PROVIDERS: Emergency Provider Emergency Medicine; PCP Internal Medicine; Visit Provider Emergency Medicine
DX: E10.65 Type 1 diabetes mellitus with hyperglycemia (principal); Z89.512 Acquired absence of left leg below knee; E10.42 Type 1 diabetes mellitus with diabetic polyneuropathy; E10.43 Type 1 diabetes mellitus with diabetic autonomic (poly)neuropathy; K31.84 Gastroparesis; I10 Essential (primary) hypertension; F17.210 Nicotine dependence, cigarettes, uncomplicated; Z96.41 Presence of insulin pump (external) (internal); Z79.899 Other long term (current) drug therapy
CPT/HCPCS: 80048; 82962; 85025; 99285

== ENCOUNTER 2025-01-06 14:10 | Inpatient (IN) | payer MEDICARE, MEDICAID, SELFPAY ==
[2025-01-06] VITALS (26 sets, daily range): BP systolic 81–135; BP diastolic 48–85; PULSE 85–114; RESP 23–38; TEMP 34.9–36.6; O2SAT 83–100; BMI 37.4; BMI 23.9
--- NOTE | 2025-01-06 14:25 | EX.ED.DYSGE1 ---
HPI <AMADEO William - Last Filed: 01/06/25 17:22> History of Present Illness Chief Complaint: Hyperglycemia Narrative Narrative: 49-year-old male with past medical history of insulin-dependent type 1 diabetes, gastroparesis, substance abuse presents via EMS from home for altered mental status and hyperglycemia. History is very limited. Patient knows his name and where he is. He states he has been vomiting. He states he drinks alcohol. Prior records state he had an insulin pump but he is not wearing it now. He states he has not been wearing it for 45 days but cannot provide details about anything else. [facility] <AMADEO William - Last Filed: 01/06/25 17:22> [facility] Medical History 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 Tobacco use disorder Polyneuropathy due to type 1 diabetes mellitus Wound discharge MRSA infection Marijuana use Open wound Thyroid disease Insulin dependent diabetes mellitus Arthritis Uses wheelchair Bladder disease Injury of back Difficulty chewing Dietary restriction Amputation of left lower extremity below knee Type 1 diabetes Current use of insulin Back pain due to injury Stroke Restless legs History of stress test Gastroparesis Vision loss of right eye Vision loss of left eye Hearing loss, left Hearing loss, right Anemia Substance abuse Alcohol abuse Anxiety Depression Hypothyroidism Diabetes Chronic pain Rheumatoid arthritis Osteoporosis Pancreatitis GERD (gastroesophageal reflux disease) Hepatitis Smoker Asthma Chest pain Hypertension Migraines Seizures Charcot foot due to diabetes mellitus Charcot ankle Neuropathy Cellulitis (~09/15/21) Diabetes mellitus Home Medications ?Medication ?Instructions ?Recorded ?Last Taken ?Type gabapentin 300 mg capsule 300 mg PO 4X/DAY nerve pain 08/13/20 06/18/22 History pantoprazole 40 mg tablet,delayed 40 mg PO DAILY gerd 08/13/20 06/18/22 History release sertraline 50 mg tablet (Zoloft) 50 mg PO DAILY 03/05/22 06/18/22 History amitriptyline 25 mg tablet 25 mg PO QHS 06/17/22 06/18/22 History insulin glargine 100 unit/mL (3 35 unit (0.35 mL) subcut QHS #31.5 09/23/23 Unknown Rx mL) subcutaneous pen (Lantus mL Solostar U-100 Insulin) lisinopril 40 mg tablet 40 mg PO QDAY 11/11/23 Unknown History insulin pump cartridge,automated #1 ea 02/10/24 Unknown Rx dose,BT with controller subcutaneous (Omnipod 5 G6 Intro Kit (Gen 5) subcutaneous cartridge with controller) amlodipine 10 mg tablet 10 mg PO DAILY #90 tabs 03/09/24 Unknown Rx atorvastatin 20 mg tablet 20 mg PO QHS #90 tabs 05/02/24 Unknown Rx blood sugar diagnostic (OneTouch #100 ea 05/02/24 Unknown Rx Verio test strips) blood-glucose meter (OneTouch #1 ea 05/02/24 Unknown Rx Verio Reflect Meter) blood-glucose sensor (FreeStyle #2 ea 08/01/24 Unknown Rx Maikel 2 Plus Sensor device) levothyroxine 25 mcg tablet 25 mcg PO DAILY thyroid #90 tabs 08/02/24 Unknown Rx cholecalciferol (vitamin D3) 125 125 mcg PO QDAY #90 caps 08/31/24 Unknown Rx mcg (5,000 unit) capsule insulin lispro 100 unit/mL 60 unit (0.6 mL) continuous 09/27/24 Unknown Rx subcutaneous solution (Humalog subcutaneous infusion .continuous U-100 Insulin) #54 mL insulin pump cart,auto,BT,G6/L #10 ea 11/21/24 Unknown Rx (Omnipod 5 (G6/Maikel 2 Plus) subcutaneous cartridge) Allergy/AdvReac Type Severity Reaction Status Date / Time No Known Allergies Allergy Verified 08/01/24 14:25 Family History Other Cancer Diabetes Heart disease Surgical History History of bilateral cataract extraction H/O tooth extraction History of left below knee amputation Social History Smoking Status: Current every day smoker tobacco type: cigarettes ROS <AMADEO William - Last Filed: 01/06/25 17:22> ROS ED ROS Narrative Unable to obtain due to altered mental status EXAM <AMADEO William - Last Filed: 01/06/25 17:22> Physical Exam Narrative Exam Narrative: CONST: Patient anxious and fidgety in bed. EYES: Normal inspection. ENT: Normal inspection, dry mucous membranes. NECK: Normal inspection. RESP: No respiratory distress, CTAB. CVS: Tachycardic with regular rhythm rhythm, no murmur, no gallop. ABD: Soft and nontender, no guarding or rebound. Skin: Diffuse scattered scabs across his body. No signs of cellulitis or abscess. EXTREMITIES: Left below the knee amputation. NEURO: Alert to self and place, often repeating himself, follows basic commands. PSYCH: Anxious. Const Vital Signs: 01/06/25 14:13 01/06/25 14:19 01/06/25 14:46 Temperature 96.4 F L Temperature Source Oral Pulse Rate 109 H 107 H Respiratory Rate 32 H 35 H Respiratory Effort Short of Breath Respiratory Pattern Tachypnea Blood Pressure 112/74 108/64 Blood Pressure Mean 86 78 Pulse Ox 100 100 Oxygen Delivery Method Room Air Room Air Oxygen Flow Rate (L/min) 01/06/25 15:19 01/06/25 16:00 01/06/25 16:00 Temperature Temperature Source Pulse Rate 105 H 101 H 105 H Respiratory Rate 27 H 36 H 23 H Respiratory Effort Respiratory Pattern Blood Pressure 113/80 125/85 H 125/65 H Blood Pressure Mean 91 98 85 Pulse Ox 96 100 98 Oxygen Delivery Method Room Air Nasal Cannula Nasal Cannula Oxygen Flow Rate (L/min) 2 2 <Dr. Clinton Dela Cruz DO - Last Filed: 01/06/25 16:24> Physical Exam Const Vital Signs: 01/06/25 14:13 01/06/25 14:19 01/06/25 14:46 Temperature 96.4 F L Temperature Source Oral Pulse Rate 109 H 107 H Respiratory Rate 32 H 35 H Respiratory Effort Short of Breath Respiratory Pattern Tachypnea Blood Pressure 112/74 108/64 Blood Pressure Mean 86 78 Pulse Ox 100 100 Oxygen Delivery Method Room Air Room Air Oxygen Flow Rate (L/min) 01/06/25 15:19 01/06/25 16:00 01/06/25 16:00 Temperature Temperature Source Pulse Rate 105 H 101 H 105 H Respiratory Rate 27 H 36 H 23 H Respiratory Effort Respiratory Pattern Blood Pressure 113/80 125/85 H 125/65 H Blood Pressure Mean 91 98 85 Pulse Ox 96 100 98 Oxygen Delivery Method Room Air Nasal Cannula Nasal Cannula Oxygen Flow Rate (L/min) 2 2 MDM <AMADEO William - Last Filed: 01/06/25 17:22> MDM MDM Narrative Medical decision making narrative: Differential includes but not limited to hyperglycemia, DKA, electrolyte derangements, infectious etiology 49-year-old male presents with altered mental status. He is awake and alert but anxious and confused. He knows name and place and follows basic commands. BP 112/74, HR 109, RR 32, 100% on room air, afebrile. Heart is rapid but regular. Lungs clear. Abdomen soft and nontender. He has a left BKA. He has scabs scattered across his body. He was given IV fluids and broad workup initiated. WBC is 27.6, hemoglobin 12.9. He is in acute renal failure with BUN of 77, creatinine 2.52 (previously 12/0.96). Sodium 122. Potassium 4.8. He is also in DKA with glucose of 788, CO2 4.2 gap 43. Liver enzymes are mildly elevated but bilirubin and lipase are normal. Alcohol negative. Initially he was given 2 L IV fluids, Ativan, Zofran, and Protonix and after BMP results an insulin drip was ordered. His chest x-ray was read as pulmonary congestion and edema but cannot exclude pneumonia. On my review of the film the left lung patchiness is more likely pneumonia and since he has been vomiting it is possible he aspirated. With his significant leukocytosis I ordered IV Zosyn to cover pneumonia. CT brain is negative. I discussed the case with the hospitalist for admission. Lab Data Attestation: I reviewed the patient's lab results. Labs: Laboratory Results - last 24 hr 01/06/25 01/06/25 14:21 16:12 WBC 27.6 H RBC 4.44 L Hgb 12.9 L Hct 39.8 L MCV 89.6 MCH 29.1 MCHC 32.4 RDW Std Deviation 46.4 H RDW Coeff of Candace 14.0 Plt Count 234 MPV 11.0 Neut % (Auto) Not Reportable Absolute Neuts (auto) 25.9 H Absolute Lymphs (auto) 0.30 L Total Counted 100 Neutrophils % (Manual) 94 H Lymphocytes % (Manual) 1 L Monocytes % (Manual) 4 Eosinophils % (Manual) 1 Platelet Estimate ADEQUATE RBC Morphology NORM C+C Sodium 122 L Potassium 4.8 Chloride 75 L Carbon Dioxide 4.2 L* Anion Gap TNP BUN 77 H Creatinine 2.52 H Estim Creat Clear Calc 43.86 L Est GFR (MDRD) Non-Af 30 L BUN/Creatinine Ratio 30.5 H Glucose 788 H* Lactic Acid 2.6 H* Calcium 8.6 Magnesium 2.6 H Total Bilirubin 0.21 AST 164 H ALT 61 H Alkaline Phosphatase 132 H Total Protein 6.9 Albumin 4.3 Globulin 2.6 Albumin/Globulin Ratio 1.6 Lipase 74 b-Hydroxybutyric mmol/L 12.0 H Urine Color Yellow Urine Clarity Sl. Cloudy Urine pH 5.0 Ur Specific [place] 1.025 Urine Protein 30 H Urine Glucose (UA) 1000 H Urine Ketones 15 H Urine Occult Blood 250 H Urine Nitrite Negative Urine Bilirubin Negative Urine Urobilinogen Normal Ur Leukocyte Esterase Negative Ethyl Alcohol < 10.1 Radiography Diagnostic Testing: Clinical Impression(s) from Imaging Studies Chest X-Ray 01/06/25 14:35 IMPRESSION: Pulmonary congestion and edema. Pneumonia cannot be excluded. Reading Location: [facility] Brain CT 01/06/25 15:30 IMPRESSION: No evidence of intracranial pathology. Reading Location: [id number] ED attending interpretation of 1 view chest x-ray shows left lung patchiness. EKG Initial EKG: Attestation: I personally reviewed and interpreted this EKG as follows: Interpretation: No Acute Injury Pattern and Sinus Tachycardia Comments: Sinus tachycardia at 105 bpm with occasional PVCs No acute ST changes <Dr. Clinton Dela Cruz, DO - Last Filed: 01/06/25 16:24> [facility] History & Record Review Discussion w/independent historian: Patient Additional record(s) reviewed:: Prior inpatient record, Prior ED visit and Prior labs Lab Data Labs: Laboratory Results - last 24 hr 01/06/25 01/06/25 14:21 16:12 WBC 27.6 H RBC 4.44 L Hgb 12.9 L Hct 39.8 L MCV 89.6 MCH 29.1 MCHC 32.4 RDW Std Deviation 46.4 H RDW Coeff of Candace 14.0 Plt Count 234 MPV 11.0 Neut % (Auto) Not Reportable Absolute Neuts (auto) 25.9 H Absolute Lymphs (auto) 0.30 L Total Counted 100 Neutrophils % (Manual) 94 H Lymphocytes % (Manual) 1 L Monocytes % (Manual) 4 Eosinophils % (Manual) 1 Platelet Estimate ADEQUATE RBC Morphology NORM C+C Sodium 122 L Potassium 4.8 Chloride 75 L Carbon Dioxide 4.2 L* Anion Gap TNP BUN 77 H Creatinine 2.52 H Estim Creat Clear Calc 43.86 L Est GFR (MDRD) Non-Af 30 L BUN/Creatinine Ratio 30.5 H Glucose 788 H* Lactic Acid 2.6 H* Calcium 8.6 Magnesium 2.6 H Total Bilirubin 0.21 AST 164 H ALT 61 H Alkaline Phosphatase 132 H Total Protein 6.9 Albumin 4.3 Globulin 2.6 Albumin/Globulin Ratio 1.6 Lipase 74 b-Hydroxybutyric mmol/L 12.0 H Urine Color Yellow Urine Clarity Sl. Cloudy Urine pH 5.0 Ur Specific [place] 1.025 Urine Protein 30 H Urine Glucose (UA) 1000 H Urine Ketones 15 H Urine Occult Blood 250 H Urine Nitrite Negative Urine Bilirubin Negative Urine Urobilinogen Normal Ur Leukocyte Esterase Negative Ethyl Alcohol < 10.1 Radiography Diagnostic Testing: Clinical Impression(s) from Imaging Studies Chest X-Ray 01/06/25 14:35 IMPRESSION: Pulmonary congestion and edema. Pneumonia cannot be excluded. Reading Location: [id number] Brain CT 01/06/25 15:30 IMPRESSION: No evidence of intracranial pathology. Reading Location: [facility] Management Discussion w/another healthcare provider: Hospitalist Treatment and Re-Evaluation :: I have personally performed a face to face assessment of the patient and have reviewed the JEN Note. I performed a substantive portion of the visit including all aspects of the following. My zuñiga findings include: History is 49-year-old male history of type 1 diabetes polysubstance abuse presenting to the emergency room altered mental status. EMS notes her blood sugar was reading high. Has reported that he is supposed to have an insulin pump with him and has not seen 1. He can tell me he is at the hospital and his name but really cannot provide much details. There is report of vomiting. Exam is patient is tachycardic. He is tachypneic. He is altered and that he is not really redirectable or following simple commands. Dry mucous membranes of the mouth. Medical Decison Making basic labs demonstrate a significant leukocytosis at 27. My independent interpretation of the chest x-ray is possible left upper lobe infiltrate. I doubt that this is CHF given his degree of dehydration. Labs reveal an DIYA findings consistent with DKA. Patient was given 2 L normal saline as well as insulin drip. CT of the brain was obtained read radiology reviewed by myself is negative. Her plan of care is going to be admission to the hospital. It is possible that he had aspiration given his high white count and the findings of the chest x-ray therefore we administered this. <Dr. Clinton Dela Cruz, DO - Last Filed: 01/06/25 16:24> Critical Care Time Critical Care Time: Yes Critical care time (excluding procedures): 30-74 minutes (33 min), Including time spent:, Discussing w/Patient &/or Family/Die Cast Engineer, Discussing w/Consultants, Arranging Admission or Transfer and Performing Direct Patient Care at Bedside Discharge Plan Dx/Rx/DC Orders Clinical Impression: DKA (diabetic ketoacidoses), Dehydration, Acute renal failure, Altered mental status, Leukocytosis, Transaminitis, Nausea and vomiting Disposition Disposition: Acute Care Hospital [facility]
[2025-01-06] MEDS: 0.9% Normal Saline (1000mL) 1,000 ML 999 ML IV ×2 (14:35→15:59)
--- NOTE | 2025-01-06 14:35 | RAD_ITS ---
EXAM: XR Chest, 1 View CLINICAL INDICATION: WEAKNESS TECHNIQUE: Frontal view of the chest. COMPARISON: No relevant prior studies available. FINDINGS: LUNGS AND PLEURAL SPACES: Pulmonary congestion and edema. Pneumonia cannot be excluded. No pneumothorax. HEART: Unremarkable. No cardiomegaly. MEDIASTINUM: Unremarkable. Normal mediastinal contour. BONES/JOINTS: Unremarkable. No acute fracture. RAD/Chest 1 View (Portable) IMPRESSION: Pulmonary congestion and edema. Pneumonia cannot be excluded. Reading Location: [id number]
[2025-01-06] MEDS: Lorazepam 2 MG/ML WCH Syringe 1 MG IV (14:36)
[2025-01-06] MEDS: Pantoprazole Sodium 40 MG in 0.9% Normal Saline (100mL MB+) 100 ML 300 MG IV (14:36)
[2025-01-06 14:49] LABS: Hematocrit 39.8 % (40-54); Hemoglobin 12.9 g/dL (13.0-16.5); Mean Corp Hgb Conc 32.4 g/dL (32-36); Mean Corpuscular Volume 89.6 fL (80-94); Mean Platelet Vol. 11.0 fl (6.2-12.0); POSITIVE DIFFERENTIAL YES; POSITIVE MORPHOLOGY YES; Platelet Count 234 K/mm3 (150-450); RBC Distribution Width CV 14.0 % (11.6-14.6); RBC Distribution Width SD 46.4 fl (35.1-43.9); Red Blood Count 4.44 M/mm3 (4.6-6.2); White Blood Count 27.6 K/mm3 (4.4-11.0)
[2025-01-06 15:04] LABS: Lipase 74 U/L (13-75)
[2025-01-06 15:09] LABS: Differential Indicated MANUAL DIFF
[2025-01-06 15:11] LABS: Neutrophil-Segmented 94 % (47-70); Total Cells Counted 100 (MANUAL DIFF)
[2025-01-06 15:12] LABS: Red Cell Morphology NORM C+C NORMAL (NORM C&C)
[2025-01-06 15:14] LABS: AST(SGOT) 164 U/L (<=37); Alanine Aminotransfer ALT/SGPT 61 U/L (<=46); Albumin, Serum 4.3 g/dL (3.5-5.0); Alkaline Phosphatase 132 U/L (40-129); BUN 77 mg/dL (4-19); BUN/Creat Ratio 30.5 RATIO (10-20); Calcium,Total 8.6 mg/dL (7.6-11.0); Chloride 75 mmol/L (98-108); Estimated Creatinine Clearance 43.86 ml/min (50-250); Globulin 2.6 g/dL (2.2-4.2); Potassium 4.8 mmol/L (3.3-5.1)
[2025-01-06 15:16] LABS: BETA-HYDROXYBUTYRATE 12.0 mmol/L (0.0-0.3)
[2025-01-06 15:18] LABS: Glucose 788 mg/dL (70-99)
[2025-01-06 15:19] LABS: Carbon Dioxide 4.2 mmol/L (21.0-32.0)
--- NOTE | 2025-01-06 15:30 | CT_ITS ---
PROCEDURE: BRAIN/HEAD WITHOUT CONTRAST 01/06/2025 REASON FOR EXAM: ALTERED MENTAL STATUS TECHNIQUE: BRAIN/HEAD WITHOUT CONTRAST Coronal and Sagittal reconstruction series were provided. One or more dose reduction techniques were used (e.g., Automated exposure control, adjustment of the mA and/or kV according to patient size, use of iterative reconstruction technique. RADIATION DOSE SUMMARY: CTDlvol: 94.12 mGy DLP: 2768.81 mGycm COMPARISON: None. FINDINGS: There is no evidence of acute intracranial hemorrhage or infarction. There are no abnormal intracranial masses or mass effects. The ventricular system and basilar cisterns are unremarkable. The skull base and calvarium are normal. There is nasal septal deviation to the right. The paranasal sinuses and mastoid air cells are unremarkable. The intraorbital contents are normal. The visualized extracranial soft tissues are normal. CT/Brain/Head without Contrast IMPRESSION: No evidence of intracranial pathology. Reading Location: [id number]
[2025-01-06 15:31] LABS: Alcohol, Blood (Medical)-Serum < 10.1 mg/dL (<=10.0)
[2025-01-06 15:49] LABS: Magnesium 2.6 mg/dL (1.5-2.2)
--- NOTE | 2025-01-06 15:52 | EKG12_ITS ---
Test Reason : routine Blood Pressure : */* mmHG Vent. Rate : 111 BPM Atrial Rate : 111 BPM P-R Int : 148 ms QRS Dur : 86 ms QT Int : 330 ms P-R-T Axes : 41 -3 -46 degrees QTcB Int : 448 ms Sinus tachycardia Septal infarct , age undetermined T wave abnormality, consider lateral ischemia Abnormal ECG When compared with ECG of 06-Jan-2025 16:09, MANUAL COMPARISON REQUIRED DATA IS UNCONFIRMED Confirmed by ALIS GUY, CHADWICK ([id number]), food editor RAMÍREZ TEAGUE ([id number]) on 01/10/2025 6:40:44 AM Referred By: Juaquin Confirmed By: CHADWICK SNELL MD
[2025-01-06 16:20] LABS: Mucous, Urine 0 SEEN /hpf (<or=2+); Squamous Epithelial Cells - UA 0 SEEN /hpf (0-5)
--- NOTE | 2025-01-06 16:22 | HP.PCM.HOS_ITS ---
HPI - General General Date of Admission: 01/06/25 Date of Service: 01/06/25 Chief Complaint: Altered mental status and hyperglycemia HPI Narrative TORI CANTOR, is a 49 M who presented to [facility] ED on 01/06/2025 with altered mental status and hyperglycemia. Patient has history of type 1 diabetes noticed, follows with Dr. Naik with endocrinology. Last office visit with them was on 12/07, see that note for further details. In short, A1c was improved to 10.3% from 12.4% in July. He has an insulin pump as well as Dexcom for continuous glucose monitoring, but he was having issues getting his pump and sensor connected and he had been running his insulin pump in manual mode. They were able to link his Dexcom to his insulin pump during that appointment and plan was for follow-up in 1 month. He was brought in by EMS today with altered mentation and hyperglycemia. He was found to be in DKA with glucose 78, bicarb 4.2, anion gap over 40, hydroxybutyrate of 12. Labs also notable for WBC count 27, sodium 122, chloride 75, creatinine 2.52 (baseline around 0.9), BUN 77, lactate 2.6. Chest x-ray showed pulmonary congestion and edema, and pneumonia cannot be excluded. CT brain was nonacute. Patient was started on insulin drip, given 2 L IV fluid bolus and a dose of IV Zosyn, and hospitalist was contacted for admission. I saw the patient at bedside in the ED. Patient was laying back in bed and remained altered with respiratory rate around 30. He was able to make eye contact with me and told me he was at [facility] but could not answer any other questions for me. Will be admitted for further management. [facility] Medical History 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 Tobacco use disorder Polyneuropathy due to type 1 diabetes mellitus Wound discharge MRSA infection Marijuana use Open wound Thyroid disease Insulin dependent diabetes mellitus Arthritis Uses wheelchair Bladder disease Injury of back Difficulty chewing Dietary restriction Amputation of left lower extremity below knee Type 1 diabetes Current use of insulin Back pain due to injury Stroke Restless legs History of stress test Gastroparesis Vision loss of right eye Vision loss of left eye Hearing loss, left Hearing loss, right Anemia Substance abuse Alcohol abuse Anxiety Depression Hypothyroidism Diabetes Chronic pain Rheumatoid arthritis Osteoporosis Pancreatitis GERD (gastroesophageal reflux disease) Hepatitis Smoker Asthma Chest pain Hypertension Migraines Seizures Charcot foot due to diabetes mellitus Charcot ankle Neuropathy Cellulitis (~09/15/21) Diabetes mellitus Home Medications ?Medication ?Instructions ?Recorded ?Last Taken ?Type gabapentin 300 mg capsule 300 mg PO 4X/DAY nerve pain 08/13/20 06/18/22 History pantoprazole 40 mg tablet,delayed 40 mg PO DAILY gerd 08/13/20 06/18/22 History release sertraline 50 mg tablet (Zoloft) 50 mg PO DAILY 06/18/22 History amitriptyline 25 mg tablet 25 mg PO QHS 06/17/2206/18 History insulin glargine 100 unit/mL (3 35 unit (0.35 mL) subc ut QHS #31.5 09/23/23 Unknown Rx mL) subcutaneous pen (Lantus mL Solostar U-100 Insulin) lisinopril 40 mg tablet 40 mg PO QDAY 11/11/23 Unkno wn History insulin pump cartridge,automated #1 ea 02/10/24 Unknow n Rx dose,BT with controller subcutaneous (Omnipod 5 G6 Intro Kit (Gen 5) subcutaneous cartridge with controller) amlodipine 10 mg tablet 10 mg PO DAILY #90 tabs 02/18 08/12 Unknown Rx atorvastatin 20 mg tablet 20 mg PO QHS #90 tabs Unknown Rx blood sugar diagnostic (OneTouch #100 ea 05/02/24 Unkn own Rx Verio test strips) blood-glucose meter (OneTouch #1 ea 05/02/24 Unknown R x Verio Reflect Meter) blood-glucose sensor (FreeStyle #2 ea 08/01/24 Unknown Rx Maikel 2 Plus Sensor device) levothyroxine 25 mcg tablet 25 mcg PO DAILY thyroid #9 0 tabs 08/02/24 Unknown Rx cholecalciferol (vitamin D3) 125 125 mcg PO QDAY #90 c aps 08/31/24 Unknown Rx mcg (5,000 unit) capsule insulin lispro 100 unit/mL 60 unit (0.6 mL) continuous 09/27/24 Unknown Rx subcutaneous solution (Humalog subcutaneous infusion . continuous U-100 Insulin) #54 mL insulin pump cart,auto,BT,G6/L #10 ea 11/21/24 Unknown Rx (Omnipod 5 (G6/Maikel 2 Plus) subcutaneous cartridge) Allergy/AdvReac Type Severity Reaction Status Date / Time No Known Allergies Allergy Verified 08/01/24 14:25 Family History Other Cancer Diabetes Heart disease Surgical History History of bilateral cataract extraction H/O tooth extraction History of left below knee amputation Social History Smoking Status: Current every day smoker tobacco type: cigarettes ROS Review of Systems ROS Unobtainable: due to mental status Vital Signs Vital Signs Vital Signs: 01/06/25 14:13 01/06/25 14:19 01/06/25 14:46 Temperature 96.4 F L Temperature Source Oral Pulse Rate 109 H 107 H Respiratory Rate 32 H 35 H Respiratory Effort Short of Breath Respiratory Pattern Tachypnea Blood Pressure 112/74 108/64 Blood Pressure Mean 86 78 Pulse Ox 100 100 Oxygen Delivery Method Room Air Room Air Oxygen Flow Rate (L/min) 01/06/25 15:19 01/06/25 16:00 01/06/25 16:00 Temperature Temperature Source Pulse Rate 105 H 101 H 105 H Respiratory Rate 27 H 36 H 23 H Respiratory Effort Respiratory Pattern Blood Pressure 113/80 125/85 H 125/65 H Blood Pressure Mean 91 98 85 Pulse Ox 96 100 98 Oxygen Delivery Method Room Air Nasal Cannula Nasal Cannula Oxygen Flow Rate (L/min) 2 2 Weight Weight: 115 kg Body Mass Index (BMI) 37.4 Physical Exam Const alert Constitutional Narrative: Middle-aged male, alert and oriented to person and place but otherwise not answering questions appropriately, confused, increased respiration rate noted, otherwise sitting back in bed fairly comfortably. Orientation / Consciousness: confused HEENT normocephalic and head/scalp atraumatic HEENT Narrative: Dry mucous membranes. Resp Resp Narrative: Increased respiration rate noted but otherwise breathing comfortably on room air at rest. Mild crackles noted in bilateral lung bases but otherwise good air movement throughout with no wheezing noted. Cardio no murmurs Cardio Narrative: Tachycardic, regular rhythm. GI normal to inspection, nondistended, normoactive bowel sounds Extremity Extremity Narrative: Left BKA noted. Results Lab / Micro Data 01/06/25 14:21 01/06/25 18:04 Labs: Laboratory Results - last 24 hr 01/06/25 14:21: WBC 27.6 H, RBC 4.44 L, Hgb 12.9 L, Hct 39.8 L, MCV 89.6, MCH 29.1, MCHC 32.4, RDW Std Deviation 46.4 H, RDW Coeff of Candace 14.0, Plt Count 234, MPV 11.0, Neut % (Auto) Not Reportable, Absolute Neuts (auto) 25.9 H, Absolute Lymphs (auto) 0.30 L, Total Counted 100, Neutrophils % (Manual) 94 H, L ymphocytes % (Manual) 1 L, Monocytes % (Manual) 4, Eosinophils % (Manual) 1, Platelet Estimate ADEQUATE, RBC Morphology NORM C+C, Sodium 122 L, Potassium 4.8, Chloride 75 L, Carbon Dioxide 4.2 L*, Anion Gap TNP, BUN 77 H, Creatinine 2.52 H, Estim Creat Clear Calc 43.86 L, Est GFR (MDRD) Non-Af 30 L, B UN/Creatinine Ratio 30.5 H, Glucose 788 H*, Lactic Acid 2.6 H*, Calcium 8.6, M agnesium 2.6 H, Total Bilirubin 0.21, AST 164 H, ALT 61 H, Alkaline Phosphatase 132 H, Total Protein 6.9, Albumin 4.3, Globulin 2.6, Albumin/Globulin Ratio 1.6, Lipase 74, b-Hydroxybutyric mmol/L 12.0 H, Ethyl Alcohol < 10.1 Imaging Radiology Impression Chest X-Ray 01/06/25 14:35 IMPRESSION: Pulmonary congestion and edema. Pneumonia cannot be excluded. Reading Location: [id number] Brain CT 01/06/25 15:30 IMPRESSION: No evidence of intracranial pathology. Reading Location: [id number] Assessment & Plan Assessment/Plan (1) DKA (diabetic ketoacidoses): PLAN: Plan Patient is a 49-year-old male who presented to [facility] ED on 01/06/2025 with altered mental status and hyperglycemia. 1. DKA with severe metabolic acidosis, poorly controlled type 1 diabetes mellitus with diabetic neuropathy ? Admit under inpatient status to ICU. History of poorly controlled type 1 diabetes, follows with Dr. Naik's office. Last visit was in November, see HPI for further details. Most recent A1c 10.3% in November. Presented with altered mentation, hypoglycemia and tachypnea. Blood glucose 788, bicarb 4, hydroxybutyrate 12 consistent with DKA. Given 2 L of IV normal saline and initiated on insulin drip in the ED. Had no significant improvement in mentation in the ICU along with worsening hypoxia; ABG showed pH 6.93, PCO2 15, PO2 88 on nonrebreather. Given 2 amps of bicarb and initiated on bicarb drip at 150 cc/hr; also placed on BiPAP as noted below. Will follow-up repeat ABG later this evening. Continue insulin drip. BMP every 4 hours for now. Continue home gabapentin at reduced dose in setting of DIYA. 2. Acute metabolic encephalopathy ? Presumed secondary to DKA with severe acidosis as noted above. CT brain negative. Lethargic but alert to person and place in the ED, was otherwise not answering questions appropriately. Treatment as above. Avoid sedating medications as able. 3. Acute hypoxia ? Initially stable on room air in the ED. However, became more hypoxic after arrival to the ICU. Suspect this is multifactorial from some degree of volume overload, possible pneumonia as below and poor respiratory excursion. Placed on BiPAP after ABG showed relatively low PO2 level on nonrebreather. Will follow- up repeat ABG later this evening. 4. Concern for pneumonia versus infection of unclear source ? Chest x-ray on admit showed pulmonary vascular congestion and edema but pneumonia could not be excluded. WBC count 27. Infectious workup ordered. Will treat empirically with IV vancomycin and Zosyn for now. 5. DIYA ? Creatinine 2.52, BUN 77 on admit. Baseline creatinine around 0.9. Presume prerenal etiology in setting of DKA as above. Given IV fluid resuscitation as above. Follow-up BMPs and monitor urine output. 6. Hyponatremia ? Sodium 122 on admit. Corrected sodium 133 in setting of severe hyperglycemia. Given IV fluid resuscitation on admit as above. Follow-up sodium levels on labs. 7. Acute on chronic debility with history of left BKA ? PT/OT/case management consulted. Appreciate therapy recommendations. Chronic medical conditions: ? Class II obesity: BMI 37 on admit. Complicates hospital course, care and prognosis. ? History of PAD, hypertension, hyperlipidemia: Hypotensive to the high 80s over 50s on admit. Continue home atorvastatin. Holding home amlodipine and lisinopril. ? Anxiety/depression: Continue home sertraline. ? GERD: Continue home PPI. ? Hypothyroidism: Continue home Synthroid. DVT prophylaxis: Heparin subcu CODE STATUS: Full code, unverified Expected disposition: TBD Total clinical time spent by myself addressing the patient's medical issues, reviewing all the data, and collaborating with patient's care team: 75 minutes. Charges/Coding Visit Charges Inpatient E&M: 26108 Init Hosp L3
[2025-01-06] MEDS: Insulin Lispro 100 UNIT in 0.9% Normal Saline (100mL Bag) 99 ML 11.5 UNIT CONT INF (16:50)
[2025-01-06] MEDS: 0.9% Normal Saline (1000mL) 1,000 ML 150 ML IV (16:57)
[2025-01-06 17:03] LABS: Color, Urine Yellow (Yellow); Glucose, Dipstick 1000 mg/dl (Normal); Ketone-Dipstick 15 mg/dl (Negative); Leukocyte Esterase-Dipstick Negative /ul (Negative); Nitrite-Dipstick Negative (Negative); Occult Blood-Urine 250 /ul (Negative); Protein-Dipstick 30 mg/dl (Negative); Specific Gravity, Urine 1.025 (1.002-1.030); Urine Bilirubin Dipstick Negative (Negative)
[2025-01-06] MEDS: Piperacil/Tazobactam 4.5 GM in 0.9% Normal Saline (100mL MB+) 100 ML IV (17:31)
[2025-01-06 17:34] LABS: Red Blood Cells-Urine 5-10 SEEN /hpf (0-5)
--- OUTSIDE RECORDS SUMMARY | 2025-01-06 19:21 | XMS RPT_ITS | CCD ---
Author Organization [facility] Care Team Providers Care Tubing Machine Tender Name Role Phone Elizabeth Nelson Primary Care Provider Dr. Samson Garcia Primary Care Provider Dr. Jordy Townsend Emergency Provider Dr. Spencer Harman Admit Provider Dr. Spencer Harman Attending Provider Dr. Spencer Harman Other Provider Dr. Chaparro Bryan Attending Provider Dr. Spencer Harman Referring Provider Dr. Shen Reza Attending Provider Dr. Shen Reza Other Provider Dr. Shiv Garcia Other Provider Dr. Tori Khoury Other Provider Dr. Mary Monroe Attending Provider Dr. Mary Monroe Other Provider Frilling 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Maria Elena LORD Unavailable Frilling 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Maria Elena LORD Unavailable Older 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Margarita LORD Primary Care Provider Jah Mas MD Unavailable Jah Mas MD Primary Care Provider Frilling 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Maria Elena LORD Unavailable Frilling 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Maria Elena LORD Unavailable Jah Mas MD Unavailable Jah Mas MD Primary Care Provider Frilling 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, Maria Elena Unavailable Frilling 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, Maria Elena Unavailable Dr. Jah Mas Primary Care Provider Dr. Jah Mas Referring Provider Mandy GRIDCAP MACHINE OPERATOR, GRIDCAP MACHINE OPERATOR-C Destinee Houston Attending Provider Dr. Jah Mas Primary Care Provider Dr. Jah Mas Referring Provider Mandy GRIDCAP MACHINE OPERATOR, ANDREW Houston Attending Provider Frilling 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, Maria Elena Unavailable Frilling 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, Maria Elena Unavailable Jah Mas MD Unavailable Jah Mas MD Primary Care Provider Dr. Santos Terrazas Attending Provider [phone] Dr. Santos Terrazas Other Provider [phone] Jah Mas Primary Care Provider Dr. Jah Mas Referring Provider Mandy AMOR, ANDREW Houston Attending Provider [phone] Dr. Brian Naik Attending Provider Dr. Myah Bazzi Attending Provider Dr. Myah aBzzi Other Provider Dr. Brian Naik Referring Provider Jah Mas MD Primary Care Provider Livan 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, Margarita [place] Unavailable Dr. Jah Mas MD Primary Care Provider Dr. Jah Mas MD Referring Provider Dalton GRIDCAP MACHINE OPERATOR-CRebecca Attending Provider CHACE, LEONARD Primary Care Unavailable QUEENER, MARIE Referring Unavailable MAS, LEONARD Primary Care Unavailable LIVAN, MARGARITA M Referring Unavailable MARIE EDWARDS Attending Unavailable MAS, LEONARD Primary Care Unavailable LIVAN, MARGARITA M Referring Unavailable JESUSPSJACQUES VALDEZ Attending Unavailable MAS, LEONARD Primary Care Unavailable LIVAN, MARGARITA M Attending Unavailable MAS, LEONARD Primary Care Unavailable MAS, LEONARD Attending Unavailable LIANET SILVESTRE Attending Unavailable MAS, LEONARD Primary Care Unavailable LIVAN, MARGARITA M Referring Unavailable MAS, LEONARD Primary Care Unavailable HARPSTER, JACQUES Referring Unavailable MAS, LEONARD Primary Care Unavailable QUEENER, MARIE Referring Unavailable Rebecca Hoffman Attending Unavailable Mas, Jah Primary Care Unavailable Mas, Jah Referring Unavailable Dalton, Rebecca Attending Unavailable Mas, Jah Primary Care Unavailable Mas, Jah Referring Unavailable Dalton, Rebecca Attending Unavailable Mas, Jah Referring Unavailable Mas, Jah Primary Care Unavailable Dalton, Rebecca Attending Unavailable Mas, Jah Referring Unavailable Mas, Jah Primary Care Unavailable Dalton, Rebecca Attending Unavailable Mas, Jah Primary Care Unavailable Mas, Jah Referring Unavailable Dalton, Rebecca Attending Unavailable Mas, Jah Primary Care Unavailable Mas, Jah Referring Unavailable Mas, Jah Primary Care Unavailable Esteban Tam Attending Unavailable Mas, Jah Primary Care Unavailable Parish Tyler Attending Unavailable Rebecca Hoffman Attending Unavailable DaltonRogelion Referring Unavailable Mas, Jah Primary Care Unavailable Dalton, Rebecca Attending Unavailable Dalton, Rebecca Referring Unavailable Mas, Jah Primary Care Unavailable Dr. Jah Mas MD Primary Care Provider Dr. Jah Mas MD Referring Provider Dalton GRIDCAP MACHINE OPERATOR-CRebecca Attending Provider Dr. Clinton Dela Cruz DO Emergency Provider [phone] [address]. Xavi Orona DO Admit Provider [phone] Dr. Xavi Orona DO Attending Provider Medications Current Medications Medication Drug Class(es) Dates Sig (Normalized) Sig (Original) Acetaminophen (7 sources) Start: 07-04-2020 acetaminophen (TYLENOL) tablet 650 mg Start: 03-28-2020 take 2 tablets by mo uth every four hours as needed for pain acetaminophen (TYLENOL) 325 MG tablet Take 2 tablets by mouth every 4 hours as needed for Pain 120 tablet 3 03/28/2020 Active Start: 07-09-2019 take 2 tablets by mo uth every four hours as needed for pain acetaminophen (TYLENOL) 325 MG tablet Take 2 tablets by mouth every 4 hours as needed for Pain 120 tablet 3 07/09/2019 Active Start: 07-09-2019 650 mg, Oral, EVERY 4 HOURS PRN, Pain Mild (1-3), Fever, For temp greater than 100.5 F (38 C), Starting 07/09/19 at 0840 Maximum dose of acetaminophen is 4000 mg from all sources in 24 hours. [id number] 200 actuat albuterol 0.09 mg/actuat metered dose inhaler (20 sources) beta2-Adrenergic Agonist Start: 07-30-2023 take 2 puff(s) by inhalation every four hours as needed for wheezing albuterol HFA (PROVENTIL HFA, VENTOLIN HFA) 90 mcg/actuation inhaler Inhale 2 Puffs as instructed every 4 hours as needed for wheezing/shortness of breath. 8 g 07/30/2023 Active Comment on above: Inhale 2 Puffs as in structed every 4 hours as needed for wheezing/shortness of breath. amitriptyline hydrochloride 25 mg oral tablet (20 sources) Tricyclic Antidepressant Start: 02-05-2022 End: 08-10-2024 take 1 tablet by mouth at bedtime Amitriptyline 25 mg Tablet Active 25 mg PO AT BEDTIME June 17, 2022 1:00am Comment on above: Take 1 tablet by jose th daily at bedtime. amLODIPine 10 mg oral tablet (20 sources) Dihydropyridine Calcium Channel Andrews Start: 03-09-2024 take 1 tablet by mouth once daily Amlodipine 10 mg tablet Active 10 mg PO DAILY March 09, 2024 12:00am Start: 11-17-2022 End: 08-10-2024 take 1 tablet by mouth once daily Amlodipine 5 mg tablet Discontinued 5 mg PO DAILY November 17, 2022 12:00am March 09, 2024 1:11pm Start: 11-12-2022 take 1 tablet by jose th once daily amLODIPine (NORVASC) 5 mg tablet Indications: Primary hypertension Take 1 tablet by mouth once daily. 90 tablet 1 11/12/2022 Active Start: 09-24-2022 End: 11-12-2022 take 1 tablet by mouth once daily amLODIPine (NORVASC) 2.5 mg tablet Indications: Primary hypertension Take 1 tablet by mouth once daily. 30 tablet 2 09/24/2022 11/12/2022 Discontinued Comment on above: Take 1 tablet by jose th once daily. aspirin 81 mg chewable tablet (20 sources) Platelet Aggregation Inhibitor, Nonsteroidal Anti-inflammatory Drug Start: 12-11-2021 take 81 mg by mouth once daily Aspirin Active 81 MG PO DAILY December 11, 2021 5:49pm Start: 09-20-2021 End: 12-11-2021 take 1 tablet by mouth twice daily Aspirin 81 mg tablet,chewable Discontinued 81 mg PO TWICE A DAY September 20, 2021 1:00am December 11, 2021 6:49pm Start: 03-28-2020 End: 07-09-2020 take 81 mg by mouth once daily 81 mg, Oral, DAILY, First dose on Thu07/04/20 at 1800 Do not crush or break. Start: 07-09-2019 take 81 mg by mouth once daily 81 mg, Oral, DAILY, First dose on Thu07/09/19 at 0900 End: 07-09-2020 take 1 tablet by mouth once daily aspirin 81 MG tablet Take 81 mg by mouth daily 0 07/09/2020 Discontinued (Stop Taking at Discharge) atorvastatin 20 mg oral tablet (20 sources) HMG-CoA Reductase Inhibitor Start: 05-02-2024 take 1 tablet by mouth at bedtime Atorvastatin 20 mg tablet Active 20 mg PO AT BEDTIME May 02, 2024 12:00am Start: 05-27-2023 End: 11-11-2023 take 1 tablet by mouth once daily Atorvastatin 10 mg tablet Discontinued 10 mg PO DAILY May 27, 2023 1:00am November 11, 2023 2:11pm Start: 05-22-2023 End: 08-10-2024 take 1 tablet by mouth once daily Atorvastatin 40 mg tablet Discontinued 40 mg PO daily November 11, 2023 12:00am May 02, 2024 2:59pm Comment on above: Take 1 tablet by jose th daily at bedtime. For cholesterol. Blood-Glucose Meter (Onetouch Verio Reflect Meter) misc (2 sources) Start: 2023 Blood-Glucose Meter (Onetouch Verio Reflect Meter) misc Active 0 .Route 1 May 02, 2024 12:00am As directed Blood-Glucose Sensor (Freestyle Maikel 2 Plus Sensor) device (2 sources) Start: 2024 Blood-Glucose Sensor (Freestyle Maikel 2 Plus Sensor) device Active 0 .Route 2 August 01, 2024 1:00am 1 sensors q 15 days cholecalciferol 0.125 mg oral capsule (4 sources) Vitamin D Start: 2023 End: 2024 take 1 capsule by mouth once daily Cholecalciferol (Vitamin D3) 125 mcg (5,000 unit) capsule Active 125 ug PO daily August 31, 2024 11:54am cilostazol 100 mg oral tablet (3 sources) Phosphodiesterase 3 Inhibitor Start: 2019 take 100 mg by mouth twice daily 30 minutes after mealtime 100 mg, Oral, 2 TIMES DAILY, First dose on Thu07/04/20 at 2100 give 30mins before or 2 hours after meals Start: 10-20-2019 take 1 tablet by jose twice daily cilostazol (PLETAL) 100 MG tablet Indications: Claudication (HCC) Take 1 tablet by mouth 2 times daily 60 tablet 3 10/20/2019 Active cyclobenzaprine hydrochloride 5 mg oral tablet (1 source) Muscle Relaxant Start: 09-30-2019 End: 10-10-2019 take 1 tablet by mouth twice daily as needed for muscle spasms cyclobenzaprine (FLEXERIL) 5 MG tablet Take 1 tablet by mouth 2 times daily as needed for Muscle spasms 10 tablet 0 09/30/2019 10/10/2019 Active DAPTOmycin 500 mg injection (13 sources) Lipopeptide Antibacterial Start: 09-20-2021 Daptomycin Active 600 MG IV Q24H 40 September 20, 2021 12:05pm stop date 10/31/21 dx: leg osteomyelitis weekly bmp, cbc, LFT, CK, and esr. Fax to [phone] routine picc care with heparin/saline flush per protocol Start: 08-13-2020 End: 08-16-2020 take 500 mg intravenously once daily Daptomycin 500 MG recon soln Discontinued 250 mL IV DAILY August 13, 2020 1:00am August 16, 2020 12:43pm DAPTOmycin (CUBICIN) 500 mg in sodium chloride 0.9 % 50 mL IVPB (1 source) Start: 07-08-2020 DAPTOmycin (CU BICIN) 500 mg in sodium chloride 0.9 % 50 mL IVPB docusate sodium 100 mg oral capsule (1 source) Start: 09-07-2019 take 1 capsule by mouth twice daily docusate sodium (COLACE) 100 MG capsule Take 1 capsule by mouth 2 times daily 30 capsule 0 09/07/2019 Active docusate sodium 50 mg / sennosides, long term 8.6 mg oral tablet (18 sources) Start: 03-28-2020 take 2 tablets by mouth twice daily 2 tablet, Oral, 2 TIMES DAILY, First dose on Thu07/04/20 at 2100 Start: 01-30-2020 End: 02-10-2020 Sennosides-Docusate Sodium 1 TABLET tablet Discontinued 2 {tbl} PO TWICE A DAY January 30, 2020 12:00am February 10, 2020 9:27am Start: 01-30-2020 End: 02-10-2020 take 2 tablets by mouth twice daily Sennosides-Docusate Sodium Discontinued 2 TABLET PO TWICE A DAY January 30, 2020 12:00am February 10, 2020 9:27am Start: 07-09-2019 take 2 tablets by mo [facility] twice daily sennosides-docusate sodium (SENOKOT-S) 8.6-50 MG tablet Take 2 tablets by mouth 2 times daily 0 07/09/2019 Active Start: 07-09-2019 sennosides-doc usate sodium (SENOKOT-S) 8.6-50 MG tablet 2 tablet DULoxetine 60 mg delayed release oral capsule (10 sources) Serotonin and Norepinephrine Reuptake Inhibitor Start: 07-05-2020 take 1 capsule by mouth once daily 120 mg, Oral, DAILY, First dose on Jazz 07/05/20 at 0900 Do not crush or break. May add contents of capsule to apple juice or apple sauce, but not chocolate. Start: 03-28-2020 take 2 capsules by m outh once daily DULoxetine (CYMBALTA) 60 MG extended release capsule Indications: Neuropathy Take 2 capsules by mouth daily 60 capsule 3 03/28/2020 Active Start: 09-30-2019 take 2 capsules by m outh once daily DULoxetine (CYMBALTA) 60 MG extended release capsule Indications: Neuropathy Take 2 capsules by mouth daily 60 capsule 5 09/30/2019 Active Start: 07-09-2019 take 1 capsule by mo uth once daily 90 mg, Oral, DAILY, First dose on 07/09/19 at 0900 Do not crush or break. May add contents of capsule to apple juice or apple sauce, but not chocolate. Start: 06-28-2019 End: 11-06-2021 take 1 capsule by mouth once daily DULoxetine (CYMBALTA) 20 mg capsule Take 1 capsule by mouth once daily. 0 06/28/2019 11/06/2021 Discontinued (Discontinued by another Health Care Provider) Start: 12-07-2018 take 2 capsules by m outh once daily DULoxetine (CYMBALTA) 60 MG extended release capsule Indications: Neuropathy Take 2 capsules by mouth daily 60 capsule 5 12/07/2018 Active Comment on above: Take 1 capsule by mo uth once daily. ferrous sulfate 325 mg oral tablet (9 sources) Start: 03-05-2022 take 325 mg by mouth once daily Ferrous Sulfate Active 325 MG PO DAILY March 04, 2022 11:00pm Start: 09-15-2021 End: 02-05-2022 take 1 tablet by mouth once daily ferrous sulfate 325 mg (65 mg iron) tablet Take 325 mg by mouth once daily. 0 09/15/2021 02/05/2022 Discontinued Comment on above: Take 325 mg by mouth once daily. flash glucose sensor (FREESTYLE MAIKEL 2 SENSOR) kit (20 sources) Start: 10-03-2022 flash glucose sensor (FREESTYLE MAIKEL 2 SENSOR) kit Indications: 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) Check 8 times per day 2 Kit 5 10/03/2022 Active Comment on above: Check 8 times per da y gabapentin 300 mg oral capsule (20 sources) Anti-epileptic Agent Start: 08-10-2024 End: 02-07-2025 gabapentin (NEURONTIN) 300 mg capsule Indications: 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) Take 1 cap three times a day during the day and 2 caps at bedtime 450 capsule 1 08/10/2024 02/07/2025 Active Start: 08-13-2020 End: 09-19-2024 take 1 capsule by mouth four times daily Gabapentin 300 MG capsule Active 300 mg PO 4 TIMES DAILY August 13, 2020 4:45pm Start: 05-09-2020 End: 11-05-2020 take 300 mg by mouth three times daily Gabapentin Active 300 MG PO THREE TIMES A DAY August 13, 2020 4:36pm Start: 10-20-2019 End: 04-17-2020 gabapentin (NEURONTIN) 300 M G capsule Indications: Type 1 diabetes mellitus with diabetic polyneuropathy (HCC) Take 1 capsule by mouth 3 times daily for 180 days. Intended supply: 30 days 90 capsule 5 10/20/2019 04/17/2020 Active Start: 10-07-2019 End: 08-13-2020 take 1 capsule by mouth twice daily at mealtime Gabapentin 300 MG capsule Discontinued 300 mg PO TWICE DAILY WITH MEALS October 07, 2019 12:00am August 13, 2020 4:36pm Comment on above: Take 300 mg by mouth four times daily. Take 1 capsule by mo [facility] four times daily for 180 days. glucagon (rdna) 1 mg injection (2 sources) Antihypoglycemic Agent Start: 07-04-2020 glucagon (rDNA) injection 1 mg Start: 07-09-2019 take 1 mL intravenou sly every hour 1 mg, Intramuscular, PRN, Low blood sugar, Blood glucose less than 70 mg/dL and patient NOT ALERT or NPO and does not have IV access., Starting 07/09/19 at 0841 After administration, attempt intravenous access and start D5W at 100 mL/hr. Repeat blood glucose in 15 minutes x2 and notify provider. glucose 0.417 mg/mg oral gel (6 sources) Start: 07-04-2020 glucose (GLUTO SE) 40 % oral gel 15 g Start: 07-04-2020 dextrose 50 % IV solution Start: 07-04-2020 dextrose 5 % s olution Start: 07-09-2019 12.5 g, Intrav enous, PRN, Low blood sugar, Blood glucose less than 70 mg/dL and patient NOT ALERT or NPO., Starting 07/09/19 at 0841 If patient does not respond within 5 minutes, repeat dose x1. Start D5W at 100 mL/hour until ordering provider can be reached. Repeat blood glucose in 15 minutes. If blood glucose is less than 70 mg/dL, repeat treatment and recheck blood glucose in 15 minutes x2. If using Glucostabilizer, dose as instructed per system. Start: 07-09-2019 100 mL/hr, Int ravenous, at 100 mL/hr, PRN, Low blood sugar, Starting 07/09/19 at 0841 Start infusion following administration of dextrose 50% or glucagon. Start: 07-09-2019 15 g, Oral, CO N, Low blood sugar, Starting 07/09/19 at 0841 If blood glucose less than 50 mg/dL and patient ALERT and TOLERATING PO, give 2 tubes glucose gel. If blood glucose less than 70 mg/dL and patient ALERT and TOLERATING PO, give 1 tube glucose gel. Repeat blood glucose in 15 minutes. If blood glucose is less than 70 mg/dL, repeat treatment and recheck blood glucose in 15 minutes x2 and notify provider. 3 ml heparin sodium, porcine 100 unt/ml prefilled syringe (2 sources) Unfractionated Heparin, Anti-coagulant Start: 07-08-2020 heparin flush 100 UNIT/ML injection 250 Units insulin human, isophane 100 unt/ml injectable suspension (9 sources) Start: 09-28-2019 insulin NPH (HUMULIN N;NOVOLIN N) 100 UNIT/ML injection vial Inject 20 Units into the skin 2 times daily (before meals) 1 vial 0 09/28/2019 Active Start: 07-26-2019 End: 11-06-2021 inject 20 [IU] by subcutaneous injection twice daily insulin NPH (HumuLIN N,NovoLIN N) pen Inject 20 Units subcutaneously twice daily. 0 07/26/2019 11/06/2021 Discontinued (Discontinued by another Health Care Provider) Start: 07-09-2019 insulin NPH (H UMULIN N;NOVOLIN N) injection vial 15 Units Start: 07-09-2019 insulin NPH (H UMULIN N) 100 UNIT/ML injection vial Inject 15 Units into the skin 2 times daily (before meals) 1 vial 3 07/09/2019 Active Start: 07-09-2019 End: 07-09-2019 inject 20 [IU] by subcutaneous injection twice daily before mealtime 20 Units, Subcutaneous, 2 TIMES DAILY BEFORE MEALS, First dose on 07/09/19 at 0900 End: 07-09-2019 insulin NPH (HUMULIN N) 100 UNIT/ML injection vial Inject 20 Units into the skin 2 times daily (before meals) 0 07/09/2019 Discontinued (REORDER) Comment on above: Inject 20 Units subc utaneously twice daily. Insulin Pump Cart,Auto,Bt,G6/L (Omnipod 5 (G6/Maikel 2 Plus)) cartridge (4 sources) Start: 11-21-2024 Insulin Pump Cart,Auto,Bt,G6/L (Omnipod 5 (G6/Maikel 2 Plus)) cartridge Active 0 .Route November 21, 2024 10:43am 1 pod q 3 days Start: 08-01-2024 End: 11-21-2024 Insulin Pump Cart,Auto,Bt,G6 /L (Omnipod 5 (G6/Maikel 2 Plus)) cartridge Discontinued 0 .Route August 01, 2024 1:00am November 21, 2024 10:43am 1 pod q 3 days Insulin Pump Cart,Auto,Bt-Cntr (Omnipod 5 G6 Intro Kit (Gen 5)) cartridge (2 sources) Start: 02-10-2024 Insulin Pump Cart,Auto,Bt-Cntr (Omnipod 5 G6 Intro Kit (Gen 5)) cartridge Active 0 .Route February 10, 2024 12:00am As directed lisinopril 40 mg oral tablet (20 sources) Angiotensin Converting Enzyme Inhibitor Start: 12-03-2022 End: 07-01-2024 take 1 tablet by mouth once daily Lisinopril 40 mg tablet Active 40 mg PO daily November 11, 2023 12:00am Start: 11-17-2022 End: 11-11-2023 take 2 tablets by mouth once daily Lisinopril 20 mg tablet Discontinued 40 mg PO DAILY November 17, 2022 2:28pm November 11, 2023 2:12pm Start: 11-17-2022 take 40 mg by mouth once daily Lisinopril Active 40 MG PO DAILY November 17, 2022 2:28pm Start: 08-13-2022 take 1 tablet by jose th once daily lisinopril (ZESTRIL, PRINIVIL) 40 mg tablet Indications: Primary hypertension Take 1 tablet by mouth once daily. 90 tablet 1 08/13/2022 Active Start: 11-06-2021 End: 11-17-2022 take 1 tablet by mouth once daily Lisinopril 20 mg tablet Discontinued 20 mg PO DAILY March 05, 2022 12:00am November 17, 2022 2:31pm Start: 12-14-2018 End: 03-05-2022 take 1 tablet by mouth once daily Lisinopril 10 MG tablet Discontinued 10 mg PO DAILY October 04, 2019 12:00am March 05, 2022 5:07pm Comment on above: Take 10 mg by mouth once daily. Take 1 tablet by jose th once daily. metoclopramide 5 mg oral tablet (9 sources) Dopamine-2 Receptor Antagonist Start: 9 End: take 5 mg by mouth three times daily 5 mg, Oral, 3 TIMES DAILY, First dose on Thu07/04/20 at 1830 Comment on above: Take 5 mg by mouth b efore meals and at bedtime. nystatin [id number] unt/ml topical cream (9 sources) Polyene Antifungal Start: 0 nystatin (MYCOSTATIN) [id number] UNIT/GM cream Indications: Yeast infection Apply topically 2 times daily. 30 g 0 03/28/2020 Active Start: 07-09-2019 apply 1 dose topical ly twice daily Topical, 2 TIMES DAILY, First dose on Thu07/09/19 at 0900 Apply to affected area. Start: 10-07-2016 nystatin (MYCO STATIN) [id number] UNIT/GM cream Indications: Yeast infection Apply topically 2 times daily. 30 g 0 10/07/2016 Active End: 11-06-2021 nystatin (MYCOSTATIN) cream Apply 1 application to scrotum topically two times daily for redness. 0 11/06/2021 Discontinued (Discontinued by another Health Care Provider) Comment on above: Apply 1 application to scrotum topically two times daily for redness. 2 ml ondansetron 2 mg/ml injection (10 sources) Serotonin-3 Receptor Antagonist Start: 0 End: 0 take 4 mg by mouth every six hours as needed for nausea 4 mg, Intravenous, EVERY 6 HOURS PRN, Nausea, Vomiting, Starting 07/04/20 at 1426 Administer if oral route cannot be used. Start: 09-07-2019 End: 09-07-2019 ondansetron (ZOFRAN) injecti on 4 mg Start: 07-09-2019 4 mg, Intraven ous, EVERY 6 HOURS PRN, Nausea, Starting 07/09/19 at 0839 End: 11-06-2021 take 1 tablet by mouth every six hours as needed ondansetron (ZOFRAN) 4 mg tablet Take 4 mg by mouth every 6 hours as needed (nausea). 0 11/06/2021 Discontinued (Discontinued by another Health Care Provider) Comment on above: Take 4 mg by mouth e very 6 hours as needed (nausea). oxyCODONE hydrochloride 5 mg oral tablet (16 sources) Opioid Agonist Start: 09-20-2021 take 5 mg by mouth every six hours Oxycodone Active 5 MG PO EVERY 6 HOURS 20 September 20, 2021 2:14pm Start: 07-04-2020 End: 07-08-2020 oxyCODONE (ROXICODONE) immed iate release tablet 10 mg Start: 07-04-2020 End: 07-14-2020 take 1 tablet by mouth every six hours as needed for pain oxyCODONE (ROXICODONE) 5 MG immediate release tablet Indications: Cellulitis of left lower extremity Take 1 tablet by mouth every 6 hours as needed for Pain for up to 5 days. 20 tablet 0 07/09/2020 07/14/2020 Active Start: 01-30-2020 End: 02-01-2020 take 1 tablet by mouth every four hours as needed for pain Oxycodone 5 MG tablet Discontinued 5 mg PO EVERY 4 HOURS NEEDED as needed for Pain Score 4-10/10 10 2 January 30, 2020 January 31, 2020 12:00am February 01, 2020 12:02am pantoprazole 40 mg delayed release oral tablet (20 sources) Proton Pump Inhibitor Start: 03-24-2024 End: 08-10-2024 take 1 tablet by mouth twice daily pantoprazole DR (PROTONIX) 40 mg tablet Indications: Gastroesophageal reflux disease, unspecified whether esophagitis present Take 1 tablet by mouth two times a day. 180 tablet 3 08/10/2024 Active Start: 05-26-2019 End: 03-23-2024 take 1 tablet by mouth once daily Pantoprazole 40 MG tablet Active 40 mg PO DAILY August 13, 2020 1:00am Comment on above: Take 40 mg by mouth once daily. Take 1 tablet by jose once daily. polyethylene glycol 3350 [id number] mg powder for oral solution (10 sources) Osmotic Laxative Start: 9 End: 2 17 g, Oral, DAILY PRN, Constipation, Starting Thu07/04/20 at 1426 First line therapy for constipation Comment on above: Take 17 g by mouth o nce daily. With 4 ounces of water. pregabalin 150 mg oral capsule (8 sources) Start: 0 End: 0 take 1 capsule by mouth three times daily pregabalin (LYRICA) 150 MG capsule Indications: Neuropathy TAKE ONE CAPSULE BY MOUTH THREE TIMES DAILY 90 capsule 2 09/30/2019 10/31/2019 Active Start: 07-09-2019 End: 11-06-2021 take 100 mg by mouth three times daily 100 mg, Oral, 3 TIMES DAILY, First dose on Thu07/09/19 at 0900 Start: 12-07-2018 take 1 capsule by mo [facility] three times daily pregabalin (LYRICA) 150 MG capsule Indications: Neuropathy TAKE ONE CAPSULE BY MOUTH THREE TIMES DAILY 90 capsule 2 12/07/2018 Active Comment on above: Take 100 mg by mouth three times daily. sertraline 50 mg oral tablet (20 sources) Serotonin Reuptake Inhibitor Start: 11-06-2021 End: 08-10-2024 take 1 tablet by mouth once daily Sertraline (Zoloft) 50 mg tablet Active 50 mg PO DAILY March 05, 2022 12:00am Comment on above: Take 1 tablet by jose once daily. 3 ml sodium chloride 9 mg/ml injection (12 sources) Start: 07-08-2020 sodium chloride flush 0.9 % injection 10 mL Start: 07-04-2020 10 mL, Intrave nous, EVERY 12 HOURS SCHEDULED (2 times per day), First dose on Thu07/04/20 at 2100 Start: 07-04-2020 End: 07-06-2020 take 1 mL by mouth every hour Intravenous, at 100 mL/h r, CONTINUOUS, Starting 07/06/20 at 1645 Hep lock when po Start: 07-04-2020 take 10 mL intraveno us route once as needed 10 mL, Intravenous, PRN, Line Care, After every IV line use, Starting 07/04/20 at 1426 Start: 07-04-2020 End: 07-04-2020 0.9 % sodium chloride bolus Start: 09-07-2019 0.9 % sodium c hloride infusion Start: 07-09-2019 10 mL, Intrave nous, EVERY 12 HOURS SCHEDULED (2 times per day), First dose on 07/09/19 at 0900 Start: 07-09-2019 take 10 mL intraveno usly once as needed 10 mL, Intravenous, PRN, Line Care, After every IV line use, Starting 07/09/19 at 0839 sodium chloride flush 0.9 % injection 3 mL (1 source) Start: 09-07-2019 sodium chlorid e flush 0.9 % injection 3 mL sodium phosphate / Sodium Phosphate, Monobasic (1 source) Start: 07-09-2019 1 enema, Recta l, DAILY PRN, Constipation, Starting 07/09/19 at 0840 Second line therapy for constipation, After 24 hours, if no result from first line PRN therapy, give second line therapy in combination with first line therapy. tamsulosin hydrochloride 0.4 mg oral capsule (2 sources) alpha-Adrenergi c Andrews Start: 07-10-2020 take 1 capsule by mouth once daily tamsulosin (FLOMAX) 0.4 MG capsule Take 1 capsule by mouth daily 30 capsule 3 07/10/2020 Active Start: 07-05-2020 tamsulosin (FL OMAX) capsule 0.4 mg Completed/Discontinued Medications Medication Drug Class(es) Dates Sig (Normalized) Sig (Original) azithromycin 250 mg oral tablet (1 source) Macrolide Antimicrobial Start: 12-07-2018 End: 07-09-2019 azithromycin (ZITHROMAX) 250 MG tablet Indications: Acute URI Take 2 tabs (500 mg) on Day 1, and take 1 tab (250 mg) on days 2 through 5. 1 packet 0 12/07/2018 07/09/2019 Discontinued (LIST CLEANUP) bisacodyl 5 mg delayed release oral tablet (3 sources) Stimulant Laxative End: 11-06-2021 take 1 tablet by mouth once daily as needed for constipation bisacodyl EC (DULCOLAX, BISACODYL,) 5 mg EC tablet Take 5 mg by mouth once daily as needed for Constipation. 0 11/06/2021 Discontinued (Discontinued by another Health Care Provider) Comment on above: Take 5 mg by mouth o nce daily as needed for Constipation. Blood-Glucose Sensor (Dexcom G6 Sensor) device (4 sources) Start: 04-07-2024 End: 08-01-2024 Blood-Glucose Sensor (Dexcom G6 Sensor) device Discontinued 0 .Route 3 April 07, 2024 10:55am August 01, 2024 4:13pm 1 sensor q 10 days Start: 02-10-2024 End: 04-07-2024 Blood-Glucose Sensor (Dexcom G6 Sensor) device Discontinued 0 .Route 3 February 10, 2024 12:00am April 07, 2024 10:55am 1 sensor q 10 days Blood-Glucose Transmitter (Dexcom G6 Transmitter) device (6 sources) Start: 06-29-2024 End: 08-01-2024 Blood-Glucose Transmitter (Dexcom G6 Transmitter) device Discontinued 0 .Route 1 June 29, 2024 3:11pm August 01, 2024 4:13pm 1 sensor q 90 days Start: 04-07-2024 End: 06-29-2024 Blood-Glucose Transmitter (D excom G6 Transmitter) device Discontinued 0 .Route April 07, 2024 10:55am June 29, 2024 3:11pm 1 sensor q 90 days Start: 02-10-2024 End: 04-07-2024 Blood-Glucose Transmitter (D excom G6 Transmitter) device Discontinued 0 .Route 1 February 10, 2024 12:00am April 07, 2024 10:55am 1 sensor q 90 days Blood-Glucose,Multi Craft Maintenance Technician,Cont (Dexcom G6 Multi Craft Maintenance Technician) misc (2 sources) Start: 08-01-2024 End: 08-01-2024 Blood-Glucose,Multi Craft Maintenance Technician,Cont (Dexcom G6 Multi Craft Maintenance Technician) misc Discontinued 0 .Route 1 August 01, 2024 1:00am August 01, 2024 4:13pm As directed cefadroxil 500 mg oral capsule (11 sources) Cephalosp aggie Antibacte rial Start: 01-30-2020 End: 02-06-2020 take 2 capsules by mouth twice daily Cefadroxil 500 MG capsule Discontinued 1000 mg PO TWICE A DAY 13 02January 30, 2020 12:00am February 05, 2020 12:00am February 06, 2020 12:03am Start: 01-30-2020 End: 02-06-2020 take 1000 mg by mouth twice daily Cefadroxil Discontinued 1000 MG PO TWICE A DAY 13 02January 30, 2020 12:00am February 06, 2020 12:03am cephalexin 500 mg oral capsule (1 source) Cephalosporin Antibacterial Start: 07-29-2023 End: 08-05-2023 take 1 capsule by mouth four times daily cephALEXin (KEFLEX) 500 mg capsule Indications: Sinobronchitis Take 1 capsule by mouth four times daily for 7 days. 28 capsule 07/29/2023 08/05/2023 diclofenac sodium 0.01 mg/mg topical gel (2 sources) Nonsteroidal Anti-inflammatory Drug Start: 03-28-2020 End: 07-09-2020 diclofenac sodium (VOLTAREN) 1 % GEL Apply 4 g topically 4 times daily 4 Tube 1 03/28/2020 07/09/2020 Discontinued (Stop Taking at Discharge) Start: 11-07-2019 diclofenac sod ium (VOLTAREN) 1 % GEL Apply 4 g topically 4 times daily 4 Tube 1 11/07/2019 Active doxycycline hyclate 100 mg oral tablet (13 sources) Tetracycline-class Drug Start: 07-30-2023 End: 08-06-2023 take 1 tablet by mouth twice daily doxycycline (VIBRA-TABS) 100 mg tablet Take 1 tablet by mouth two times a day for 7 days. 14 tablet 07/30/2023 08/06/2023 Start: 05-09-2022 End: 05-19-2022 take 1 tablet by mouth twice daily doxycycline (VIBRA-TABS) 100 mg tablet Indications: Amputation stump infection (HCC) Take 1 tablet by mouth twice daily for 10 days. 20 tablet 0 05/09/2022 05/19/2022 Active Start: 08-16-2020 End: 08-30-2020 take 1 capsule by mouth twice daily Doxycycline Monohydrate 100 MG capsule Discontinued 100 mg PO TWICE A DAY August 16, 2020 1:00am August 29, 2020 1:00am August 30, 2020 1:03am Comment on above: Take 1 tablet by jose twice daily for 10 days. 0.4 ml enoxaparin sodium 100 mg/ml prefilled syringe (8 sources) Low Molecular Weight Heparin Start: 07-04-2020 End: 07-09-2020 inject 40 mg by subcutaneous injection once daily 40 mg, Subcutaneous, DAILY, First dose (after last modification) on 07/07/20 at 0900 Start: 07-09-2019 inject 40 mg by subc utaneous injection once daily 40 mg, Subcutaneous, DAILY, First dose on 07/09/19 at 0900 End: 11-06-2021 enoxaparin (LOVENOX) 40 mg/0 .4 mL syrg Inject 40 mg subcutaneously every 24 hours. Prophylactic for prevention of DVT. 0 11/06/2021 Discontinued (Discontinued by another Health Care Provider) Comment on above: Inject 40 mg subcuta neously every 24 hours. Prophylactic for prevention of DVT. Flash Glucose Scanning [place] (Freestyle Maikel 2 [place]) misc (2 sources) Start: 10-08-2023 End: 05-02-2024 Flash Glucose Scanning [place] (Freestyle Maikel 2 [place]) misc Discontinued 0 .Route October 08, 2023 12:00am May 02, 2024 2:34pm As directed flash glucose sensor (FREESTYLE MAIKEL 14 DAY SENSOR) kit (14 sources) Start: 10-01-2022 End: 10-03-2022 flash glucose sensor (FREESTYLE MAIKEL 14 DAY SENSOR) kit Indications: 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) Check 8 times per day. 2 Kit 5 10/01/2022 10/03/2022 Discontinued Start: 10-01-2022 flash glucose sensor (FREESTYLE MAIKEL 14 DAY SENSOR) kit Indications: 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) Check 8 times per day. 2 Kit 5 10/01/2022 Active Start: 08-13-2022 End: 10-01-2022 flash glucose sensor (FREEST YLE MAIKEL 14 DAY SENSOR) kit Indications: 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) Check 8 times per day. 2 Kit 5 08/13/2022 10/01/2022 Discontinued Start: 08-13-2022 flash glucose sensor (FREESTYLE MAIKEL 14 DAY SENSOR) kit Indications: 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) Check 8 times per day. 2 Kit 5 08/13/2022 Active Start: 02-05-2022 End: 08-13-2022 flash glucose sensor (FREEST YLE MAIKEL 14 DAY SENSOR) kit Indications: 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) Check 8 times per day. 2 Kit 5 02/05/2022 08/13/2022 Discontinued Start: 02-05-2022 flash glucose sensor (FREESTYLE MAIKEL 14 DAY SENSOR) kit Indications: 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) Check 8 times per day. 2 Kit 5 02/05/2022 Active Comment on above: Check 8 times per da y. Flash Glucose Sensor (Freestyle Maikel 14 Day Sensor) kit (4 sources) Start: 11-17-2022 End: 11-17-2022 Flash Glucose Sensor (Freestyle Maikel 14 Day Sensor) kit Discontinued 0 .Route November 17, 2022 12:00am November 17, 2022 3:05pm As directed Flash Glucose Sensor (Freestyle Maikel 2 Sensor) kit (14 sources) Start: 11-05-2023 End: 05-02-2024 Flash Glucose Sensor (Freestyle Maikel 2 Sensor) kit Discontinued 0 .Route 6 November 05, 2023 4:41pm May 02, 2024 2:34pm 1 sensor q 14 days Start: 11-05-2023 End: 11-05-2023 Flash Glucose Sensor (Freest yle Maikel 2 Sensor) kit Discontinued 0 .Route 6 November 05, 2023 4:40pm November 05, 2023 4:41pm 1 sensor q 14 days Start: 05-27-2023 End: 11-05-2023 Flash Glucose Sensor (Freest yle Maikel 2 Sensor) kit Discontinued 0 .Route 6 May 27, 2023 4:17pm November 05, 2023 4:41pm 1 sensor q 14 days Start: 02-16-2023 End: 05-27-2023 Flash Glucose Sensor (Freest yle Maikel 2 Sensor) kit Discontinued 0 .Route 2 February 16, 2023 3:35pm May 27, 2023 4:17pm As directed Start: 01-26-2023 End: 02-16-2023 Flash Glucose Sensor (Freest yle Maikel 2 Sensor) kit Discontinued 0 .Route 2 January 26, 2023 2:56pm February 16, 2023 3:35pm As directed Start: 11-17-2022 End: 01-26-2023 Flash Glucose Sensor (Freest yle Maikel 2 Sensor) kit Discontinued 0 .Route 1 November 17, 2022 12:00am January 26, 2023 2:57pm As directed Start: 11-17-2022 Flash Glucose Sensor (Freestyle Maikel 2 Sensor) kit Active 0 .ROUTE 1 November 17, 2022 12:00am As directed 1 ml HYDROmorphone hydrochloride 1 mg/ml cartridge (1 source) Opioid Agonist Start: 07-06-2020 End: 07-07-2020 HYDROmorphone (DILAUDID) injection 0.5 mg 3 ml insulin detemir 100 unt/ml pen injector (1 source) Insulin Analog Start: 05-26-2019 End: 07-09-2019 insulin detemir (LEVEMIR FLEXTOUCH) 100 UNIT/ML injection pen INJECT 40 UNITS SUBCUTANEOUSLY NIGHTLY 15 pen 3 05/26/2019 07/09/2019 Discontinued (LIST CLEANUP) 3 ml insulin glargine 100 unt/ml pen injector (20 sources) Insulin Analog Start: 10-30-2023 End: 09-01-2024 LANTUS SOLOSTAR U-100 INSULIN 100 unit/mL (3 mL) Indications: 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) Inject 18 Units subcutaneously daily at bedtime. Per [facility]. 15 mL 2 10/30/2023 09/01/2024 Discontinued (Discontinued by another Health Care Provider) Start: 12-03-2022 End: 10-30-2023 LANTUS SOLOSTAR U-100 INSULI N 100 unit/mL (3 mL) Indications: 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) Inject 35 Units subcutaneously daily at bedtime. 15 mL 2 12/03/2022 10/30/2023 Discontinued Start: 11-17-2022 End: 09-23-2023 Insulin Glargine (Lantus Meredith ostar U-100 Insulin) 100 unit/mL (3 mL) insulin pen Discontinued 35 U SC AT BEDTIME 31.5 September 09, 2023 5:49pm September 23, 2023 3:17pm Start: 08-13-2022 LANTUS SOLOSTA R U-100 INSULIN 100 unit/mL (3 mL) Indications: 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) Inject 35 Units subcutaneously daily at bedtime. 15 mL 2 08/13/2022 Active Start: 10-24-2021 End: 08-13-2022 LANTUS SOLOSTAR U-100 INSULI N 100 unit/mL (3 mL) Indications: 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) Inject 15 Units subcutaneously twice daily. 5 Pen 5 02/05/2022 08/13/2022 Discontinued Start: 08-13-2020 End: 11-17-2022 inject 30 [IU] by subcutaneous injection once daily in the evening Insulin Glargine Discontinued 30 UNIT SQ EVERY EVENING August 13, 2020 4:36pm November 17, 2022 2:31pm Start: 08-13-2020 inject 30 [IU] by damico bcutaneous injection once daily in the evening Insulin Glargine Active 30 UNIT SQ EVERY EVENING August 13, 2020 4:36pm Start: 08-13-2020 inject 30 [IU] by damico bcutaneous injection once daily in the evening Insulin Glargine Active 30 UNIT SQ EVERY EVENING August 13, 2020 3:36pm Start: 08-13-2020 inject 18 [IU] by damico bcutaneous injection twice daily Insulin Glargine Active 18 UNIT SQ TWICE A DAY August 13, 2020 3:36pm Start: 08-13-2020 inject 18 [IU] by damico bcutaneous injection twice daily Insulin Glargine Active 18 UNIT SQ TWICE A DAY August 13, 2020 4:36pm Start: 08-13-2020 inject 30 [IU] by damico bcutaneous injection at bedtime Insulin Glargine Active 30 UNIT SQ AT BEDTIME August 13, 2020 4:36pm Start: 07-09-2020 insulin glargi ne (LANTUS) injection vial 22 Units Start: 07-09-2020 insulin glargi ne (LANTUS) 100 UNIT/ML injection vial Inject 22 Units into the skin nightly 1 vial 3 07/09/2020 Active Start: 07-08-2020 End: 07-09-2020 insulin glargine (LANTUS) injection vial 20 Units Start: 07-07-2020 End: 07-08-2020 insulin glargine (LANTUS) injection vial 18 Units Start: 07-06-2020 End: 07-07-2020 insulin glargine (LANTUS) injection vial 16 Units Start: 07-04-2020 End: 07-06-2020 insulin glargine (LANTUS) injection vial 20 Units Start: 05-09-2020 End: 07-09-2020 LANTUS SOLOSTAR 100 UNIT/ML injection pen Indications: Type 1 diabetes mellitus with diabetic polyneuropathy (HCC) Inject 30 Units into the skin nightly 5 pen 3 05/09/2020 07/09/2020 Discontinued (Stop Taking at Discharge) Start: 01-30-2020 End: 08-13-2020 inject 35 [IU] by subcutaneous injection at bedtime Insulin Glargine 100 UNIT/ML solution Discontinued 35 U SQ AT BEDTIME 0 January 30, 2020 10:16am August 13, 2020 4:36pm Start: 01-25-2020 End: 01-30-2020 inject 25 [IU] by subcutaneous injection at bedtime Insulin Glargine 100 UNIT/ML solution Discontinued 25 U SQ AT BEDTIME January 25, 2020 12:00am January 30, 2020 10:16am Start: 11-24-2019 LANTUS SOLOSTA R 100 UNIT/ML injection pen Indications: Type 1 diabetes mellitus with diabetic polyneuropathy (HCC) Inject 30 Units into the skin nightly 5 pen 3 11/24/2019 Active Comment on above: Inject 15 Units subc utaneously twice daily. Inject 35 Units subc utaneously daily at bedtime. Inject 18 Units subc utaneously daily at bedtime. Per [facility]. Insulin Glargine 100 UNIT/ML solution (2 sources) Start: End: inject 30 [IU] by subcutaneous injection once daily in the evening Insulin Glargine 100 UNIT/ML solution Discontinued 30 U SQ EVERY EVENING August 13, 2020 4:36pm November 17, 2022 2:31pm insulin lispro 100 unt/ml injectable solution (20 sources) Insulin Analog Start: 024 End: 025 Insulin Lispro (Humalog U-100 Insulin) 100 unit/mL solution Discontinued 60 U continuous subcutaneous infusion .continuous 54 June 23, 2024 5:57pm September 27, 2024 11:52am Start: 10-30-2023 inject 6 [IU] by sub cutaneous injection three times daily at mealtime insulin lispro (HUMALOG KWIKPEN) 100 unit/mL Inject 6 Units subcutaneously three times a day with meals. Plus sliding scale. Per [facility]. 10/30/2023 Active Start: 09-09-2023 End: 09-27-2024 Insulin Lispro (Humalog Kwik pen Insulin) 100 unit/mL insulin pen Discontinued 15 U SC THREE TIMES A DAY 40.5 January 28, 2024 12:38pm September 27, 2024 11:52am Start: 12-03-2022 End: 10-30-2023 inject 6 [IU] by subcutaneous injection at mealtime insulin lispro (HUMALOG KWIKPEN) 100 unit/mL Inject 6 Units subcutaneously w MEALS. 15 mL 2 12/03/2022 10/30/2023 Discontinued Start: 11-17-2022 End: 09-09-2023 Insulin Lispro (Humalog Kwik pen Insulin) 100 unit/mL insulin pen Discontinued 10 U SC THREE TIMES A DAY June 09, 2023 3:40pm September 09, 2023 5:50pm Start: 07-10-2020 insulin lispro (HUMALOG) 100 UNIT/ML injection vial Inject 6 Units into the skin every morning (before breakfast) 1 vial 3 07/10/2020 Active Start: 07-10-2020 insulin lispro (HUMALOG) injection vial 6 Units Start: 07-09-2020 insulin lispro (HUMALOG) injection vial 8 Units Start: 07-09-2020 insulin lispro (HUMALOG) 100 UNIT/ML injection vial Inject 8 Units into the skin Daily with supper 1 vial 3 07/09/2020 Active Start: 07-09-2020 insulin lispro (HUMALOG) injection vial 8 Units Start: 07-08-2020 End: 07-09-2020 insulin lispro (HUMALOG) inj ection vial 6 Units Start: 07-06-2020 End: 07-08-2020 insulin lispro (HUMALOG) inj ection vial 4 Units Start: 07-05-2020 End: 07-06-2020 insulin lispro (HUMALOG) inj ection vial 5 Units Start: 07-04-2020 End: 07-07-2020 insulin lispro (HUMALOG) inj ection vial 0-6 Units Start: 10-07-2019 End: 11-17-2022 Insulin Lispro 100 UNIT/ML i nsulin pen Discontinued 0 U SC THREE TIMES A DAY January 25, 2020 9:23pm November 17, 2022 2:31pm Please contact the information source for Protocol details. Start: 10-07-2019 End: 01-25-2020 Insulin Lispro 100 UNIT/ML i nsulin pen Discontinued 10 U SC 07October 07, 2019 12:00am January 25, 2020 9:23pm Start: 07-26-2019 End: 06-16-2022 inject 6 [IU] by subcutaneous injection at mealtime insulin lispro (HUMALOG KWIKPEN) 100 unit/mL Inject 6 Units subcutaneously w MEALS. 15 mL 2 06/16/2022 Active Start: 07-09-2019 End: 07-09-2019 insulin lispro (HUMALOG) inj ection vial 0-3 Units Start: 09-02-2018 insulin lispro (HUMALOG KWIKPEN) 100 UNIT/ML pen Indications: Type 1 diabetes mellitus with diabetic polyneuropathy (HCC) Inject 14 Units into the skin 3 times daily (before meals) 14 units TID plus sliding scale (3 units for every 100 over 300) 5 pen 3 09/02/2018 Active Start: 09-02-2018 insulin lispro (HUMALOG KWIKPEN) 100 UNIT/ML pen Indications: Type 1 diabetes mellitus with diabetic polyneuropathy (HCC) Inject 14 Units into the skin 3 times daily (before meals) 14 units TID plus sliding scale (3 units for every 100 over 300) 5 pen 3 09/02/2018 Active Comment on above: Inject 6 Units subcutaneously w MEALS. Inject 6 Units subcu taneously three times a day with meals. Plus sliding scale. Per [facility]. insulin lispro (HUMALOG KWIKPEN) 100 unit/mL (13 sources) Start: 12-04-19 inject 6 [IU] by subcutaneous injection at mealtime insulin lispro (HUMALOG KWIKPEN) 100 unit/mL Inject 6 Units subcutaneously w MEALS. 15 mL 2 12/03/2022 Active Start: 06-16-2022 inject 6 [IU] by sub cutaneous injection at mealtime insulin lispro (HUMALOG KWIKPEN) 100 unit/mL Inject 6 Units subcutaneously w MEALS. 15 mL 2 06/16/2022 Active Comment on above: Inject 6 Units subcu taneously w MEALS. Insulin Pump Cart,Auto,Bt,G6/7 (Omnipod 5 G6-G7 Pods (Gen 5)) cartridge (2 sources) Start: 05-23-2024 End: 08-01-2024 Insulin Pump Cart,Auto,Bt,G6/7 (Omnipod 5 G6-G7 Pods (Gen 5)) cartridge Discontinued 0 .Route May 23, 2024 1:00am August 01, 2024 4:12pm change q 3 russo Insulin Pump Cart,Automated,Bt (Omnipod 5 G6 Pods (Gen 5)) cartridge (4 sources) Start: 04-06-2024 End: 08-01-2024 Insulin Pump Cart,Automated,Bt (Omnipod 5 G6 Pods (Gen 5)) cartridge Discontinued 0 .Route April 06, 2024 9:25am August 01, 2024 4:12pm 1 pod q 3 days Start: 02-10-2024 End: 04-06-2024 Insulin Pump Cart,Automated, Bt (Omnipod 5 G6 Pods (Gen 5)) cartridge Discontinued 0 .Route February 10, 2024 12:00am April 06, 2024 9:25am 1 pod q 3 days iopamidol (ISOVUE-370) 76 % injection 75 mL (1 source) Start: 12-07-2019 End: 12-07-2019 iopamidol (ISOVUE-370) 76 % injection 75 mL 1 ml ketorolac tromethamine 30 mg/ml cartridge (1 source) Nonsteroidal Anti-inflammatory Drug, Cyclooxygenase Inhibitor Start: 09-07-2019 End: 09-07-2019 ketorolac (TORADOL) injection 15 mg levothyroxine sodium 0.025 mg oral tablet (20 sources) l-Thyroxine Start: 09-15-2021 End: 08-02-2024 take 1 tablet by mouth once daily Levothyroxine 25 mcg tablet Discontinued 25 ug PO DAILY 90 February 12, 2024 5:00pm August 02, 2024 4:11pm Comment on above: Take 25 mcg by mouth every morning. Take 1 tablet by jose th every morning. 10 ml lidocaine hydrochloride 10 mg/ml injection (1 source) Antiarrhythmic, Amide Local Anesthetic Start: 07-08-2020 End: 07-09-2020 lidocaine PF 1 % injection 5 mL 1 ml LORazepam 2 mg/ml injection (1 source) Benzodiazepine Start: 07-06-2020 End: 07-06-2020 LORazepam (ATIVAN) injection 1 mg Start: 07-06-2020 End: 07-06-2020 LORazepam (ATIVAN) injection 1 mg magnesium citrate (1 source) Start: 07-09-2019 End: 07-09-2019 magnesium citrate solution 296 mL magnesium hydroxide 80 mg/ml oral suspension (3 sources) End: 11-06-2021 take 30 mL by mouth every twelve hours as needed magnesium hydroxide (MOM) 400 mg/5 mL suspension Take 30 mL by mouth every 12 hours as needed for Constipation. 0 11/06/2021 Discontinued (Discontinued by another Health Care Provider) Comment on above: Take 30 mL by mouth every 12 hours as needed for Constipation. methadone hydrochloride 10 mg/ml oral solution (7 sources) Opioid Agonist Start: 07-04-2020 End: 07-04-2020 methadone (DOLOPHINE) 10 MG/ML solution 40 mg Start: 07-26-2019 End: 11-06-2021 take 1 tablet by mouth three times daily for pain, then take 1 tablet by mouth twice daily for pain, then take 0.5 tablet by mouth twice daily for pain, then take 0.5 tablet by mouth once daily for pain methadone (DOLOPHINE) 10 mg tablet Indications: History of left below knee amputation (HCC) , Cellulitis of left lower extremity One po 3 times daily for 5 days then one tab po 2 times daily for 5 days then 1/2 tab po bid x 5 days then 1/2 tab daily x 4 days for pain control s/p I&D L BKA stump infection 32 tablet 0 07/26/2019 11/06/2021 Discontinued (Discontinued by another Health Care Provider) Start: 07-09-2019 take 10 mg by mouth every twelve hours 10 mg, Oral, EVERY 12 HOURS, First dose on 07/09/19 at 0900 Comment on above: One po 3 times daily for 5 days then one tab po 2 times daily for 5 days then 1/2 tab po bid x 5 days then 1/2 tab daily x 4 days for pain control s/p I&D L BKA stump infection 1 ml morphine sulfate 4 mg/ml cartridge (2 sources) Opioid Agonist Start: 07-04-2020 End: 07-04-2020 morphine injection 4 mg Start: 09-07-2019 End: 09-07-2019 morphine injection 4 mg mupirocin 0.02 mg/mg topical ointment (15 sources) RNA Synthetase Inhibitor Antibacterial Start: 11-17-2022 End: 11-11-2023 Mupirocin 2 % ointment Discontinued 1 NMA TOPICAL TWICE A DAY November 17, 2022 12:00am November 11, 2023 2:12pm Start: 11-05-2022 End: 10-30-2023 mupirocin (BACTROBAN) 2 % oi ntment apply to affected area twice a day to ACTIVE FLARES for 3 weeks t... (REFER TO PRESCRIPTION NOTES). 11/05/2022 10/30/2023 Discontinued Comment on above: apply to affected ar ea twice a day to ACTIVE FLARES for 3 weeks t... (REFER TO PRESCRIPTION NOTES). naloxone hydrochloride 40 mg/ml nasal spray (3 sources) Opioid Antagonist Start: 07-26-2019 End: 11-06-2021 naloxone 4 mg/actuation nasal spray (NARCAN) Use 1 spray in one nostril as needed for overdose. May repeat every 2 to 3 min in alternating nostrils until medical assistance is available 1 Box 0 07/26/2019 11/06/2021 Discontinued (Discontinued by another Health Care Provider) Comment on above: Use 1 spray in one n ostril as needed for overdose. May repeat every 2 to 3 min in alternating nostrils until medical assistance is available piperacillin 3000 mg / tazobactam 375 mg injection (2 sources) Penicillin-class Antibacterial, beta Lactamase Inhibitor Start: 07-04-2020 End: 07-08-2020 piperacillin-tazobactam (ZOSYN) 3.375 g in dextrose 50 mL IVPB extended infusion (premix) Start: 07-04-2020 End: 07-04-2020 piperacillin-tazobactam (ZOS YN) 4.5 g in dextrose 100 mL IVPB (premix) polyethylene glycol 3350 [id number] mg / potassium chloride 2970 mg / sodium bicarbonate 6740 mg / sodium chloride 5860 mg / sodium sulfate 59544 mg powder for oral solution (1 source) Osmotic Laxative Start: 09-15-2024 End: 09-15-2024 peg 3350-Electrolytes (GOLYTELY) 236-22.74-6.74 -5.86 gram suspension Indications: Screening for malignant neoplasm of colon Take 4,000 mL by mouth one time only for 1 dose. Refer to printed prep instructions from your provider. 4000 mL 09/15/2024 09/15/2024 regular insulin, human 100 unt/ml injectable solution (15 sources) Insulin Start: 07-04-2020 End: 07-04-2020 insulin regular (HUMULIN R;NOVOLIN R) injection 15 Units Start: 03-28-2020 End: 07-09-2020 insulin regular (HUMULIN R) 100 UNIT/ML injection Inject 12 Units into the skin See Admin Instructions Inject as sliding scale if 150-200= 2 units, 201-250 = 4 units, 251-300=6 units, 301-350=8 units, 351-400= 10 units, 401-450=12 units before meals and at bedtime Max dosage of 48 units daily 1 vial 3 03/28/2020 07/09/2020 Discontinued (Stop Taking at Discharge) Start: 10-06-2019 End: 10-07-2019 inject 14 [IU] by subcutaneous injection three times daily at mealtime Insulin Regular Human 100 UNIT/ML solution Discontinued 14 U SQ 3 TIMES DAILY WITH MEALS October 06, 2019 12:00am October 07, 2019 11:16am Start: 09-28-2019 insulin regula r (HUMULIN R) 100 UNIT/ML injection Inject 12 Units into the skin See Admin Instructions Inject as sliding scale if 150-200= 2 units, 201-250 = 4 units, 251-300=6 units, 301-350=8 units, 351-400= 10 units, 401-450=12 units before meals and at bedtime Max dosage of 48 units daily 1 vial 3 09/28/2019 Active sennosides, long term 8.6 mg oral tablet (4 sources) End: 11-06-2021 take 2 tablets by mouth twice daily senna (SENNA) 8.6 mg tab Take 17.2 mg by mouth twice daily. 0 11/06/2021 Discontinued (Discontinued by another Health Care Provider) Comment on above: Take 17.2 mg by mout h twice daily. sofosbuvir 400 mg / velpatasvir 100 mg oral tablet (20 sources) Hepatitis C Virus NS5A Inhibitor, Hepatitis C Virus Nucleotide Analog NS5B Polymerase Inhibitor Start: 11-17-2022 End: 04-23-2023 take 1 tablet by mouth once daily Sofosbuvir-Velpatas vir (Epclusa) 400-100 mg tablet Discontinued 1 {tbl} PO DAILY November 17, 2022 12:00am April 23, 2023 2:07pm Start: 07-31-2022 End: 10-30-2023 EPCLUSA 400-100 mg 10/30/2023 Discontinued Start: 05-14-2022 End: 08-06-2022 take 1 tablet by mouth once daily Sofosbuvir-Velpatasvir (Epclusa) 400-100 mg tablet Discontinued 1 {tbl} PO DAILY 84 84 May 14, 2022 12:00am August 05, 2022 1:00am August 06, 2022 1:03am take 4 hours after pantoprazole tiZANidine 2 mg oral tablet (1 source) Central alpha-2 Adrenergic Agonist Start: 12-07-2018 End: 07-09-2019 take 1 tablet by mouth twice daily as needed for pain tiZANidine (ZANAFLEX) 2 MG tablet Indications: Chronic midline low back pain without sciatica , Facet arthritis of lumbar region Take 1 tablet by mouth 2 times daily as needed (pain) 60 tablet 0 12/07/2018 07/09/2019 Discontinued (LIST CLEANUP) traZODone hydrochloride 50 mg oral tablet (3 sources) Serotonin Reuptake Inhibitor Start: 11-06-2021 End: 12-11-2021 take 0.5-1 tablets by mouth once daily at bedtime for sleep traZODone (DESYREL) 50 mg tablet Take 0.5-1 tablets by mouth daily at bedtime. For sleep 30 tablet 5 11/06/2021 12/11/2021 Discontinued (Side Effects) Start: 12-07-2018 End: 07-09-2019 take 1 tablet by mouth once daily traZODone (DESYREL) 300 MG tablet Indications: Primary insomnia Take 1 tablet by mouth nightly 30 tablet 3 12/07/2018 07/09/2019 Discontinued (LIST CLEANUP) Comment on above: Take 0.5-1 tablets b y mouth daily at bedtime. For sleep vancomycin (VANCOCIN) 1,250 mg in dextrose 5 % 250 mL IVPB (1 source) Start: 07-04-2020 End: 07-04-2020 vancomycin (VANCOCIN) 1,250 mg in dextrose 5 % 250 mL IVPB vancomycin (VANCOCIN) 1500 mg in dextrose 5 % 250 mL IVPB (1 source) Start: 07-05-2020 End: 07-06-2020 vancomycin (VANCOCIN) 1500 mg in dextrose 5 % 250 mL IVPB vancomycin (VANCOCIN) 2,000 mg in dextrose 5 % 500 mL IVPB (1 source) Start: 07-06-2020 End: 07-08-2020 vancomycin (VANCOCIN) 2,000 mg in dextrose 5 % 500 mL IVPB Problems Active Problems Problem Classification Problem Date Documented Da te Episodic/Chronic Abdominal pain (20 sources) Left flank pain; Translations: [Pain in pelvis] Onset: 0 Resolved: 6 Episodic Acute and unspecified renal failure (3 sources) Acute injury of kidney; Translations: [Acute renal failure syndrome] Resolved: 8 05-21-2018 Episodic Acute cerebrovascular disease (4 sources) Cerebral infarction; Translations: [Cerebral infarction, unspecified] Onset: 5 08-24-2024 Chronic Anxiety disorders (20 sources) Mixed anxiety and depressive disorder; Translations: [Other specified anxiety disorders] Onset: 6 01-25-2016 Chronic Chronic ulcer of skin (20 sources) Ulcer of lower extremity; Translations: [Non-pressure chronic ulcer of unspecified part of left lower leg with fat layer exposed] Onset: 3 Resolved: 3 Chronic Complications of surgical procedures or medical care (20 sources) Infection of amputation stump; Translations: [Infection of amputation stump, unspecified extremity] Onset: 3 Resolved: 3 Episodic Coronary atherosclerosis and other heart disease (2 sources) Calcification of coronary artery; Translations: [Atherosclerotic heart disease of [place] coronary artery without angina pectoris] Onset: 5 09-03-2024 Chronic Deficiency and other anemia (1 source) Anemia; Translations: [Anemia, unspecified] Episodic Diabetes mellitus with complications (20 sources) Diabetic polyneuropathy; Translations: [Diabetic ketoacidosis] Onset: 6 05-21-2018 Chronic Diabetes mellitus without complication (20 sources) Type 1 diabetes mellitus; Translations: [Type 1 diabetes mellitus without complications] Onset: 5 Chronic Diabetes mellitus without complication (6 sources) Hyperglycemia; Translations: [Hyperglycemia, unspecified] Onset: 9 05-27-2019 Episodic Diseases of white blood cells (2 sources) Leukocytosis; Translations: [Elevated white blood cell count, unspecified] 01-06-2025 Chronic Disorders of lipid metabolism (20 sources) Hyperlipidemia; Translations: [Hyperlipidemia, unspecified] Onset: 7 05-21-2018 Chronic Esophageal disorders (20 sources) Gastroesophageal reflux disease; Translations: [Ulcerative esophagitis] Onset: 6 05-21-2018 Chronic Essential hypertension (20 sources) Hypertensive disorder; Translations: [Essential (primary) hypertension] Onset: 0 05-21-2018 Chronic Fluid and electrolyte disorders (20 sources) Lactic acidosis; Translations: [Hyponatremia] Onset: 6 Resolved: 8 05-21-2018 Episodic Hepatitis (20 sources) Chronic hepatitis C; Translations: [Chronic viral hepatitis C] Onset: 9 Resolved: 4 09-02-2018 Chronic Hepatitis (14 sources) Viral hepatitis C; Translations: [Unspecified viral hepatitis C without hepatic coma] 11-03-2022 Episodic Immunizations and screening for infectious disease (20 sources) Culture positive for methicillin resistant Staphylococcus aureus; Translations: [Carrier or suspected carrier of Methicillin resistant Staphylococcus aureus] Episodic Infective arthritis and osteomyelitis (except that caused by tuberculosis or sexually transmitted disease) (20 sources) Osteomyelitis; Translations: [Osteomyelitis, unspecified] Onset: 9 Resolved: 5 06-27-2019 Chronic Mycoses (1 source) Onychomycosis; Translations: [Tinea unguium] Episodic Nausea and vomiting (20 sources) Nausea and vomiting; Translations: [Nausea with vomiting, unspecified] 08-22-2020 Episodic Nonspecific chest pain (14 sources) Chest pain; Translations: [Chest pain, unspecified] Episodic Nutritional deficiencies (20 sources) Undernutrition; Translations: [Unspecified protein-calorie malnutrition] Onset: 2 Resolved: 3 02-19-2022 Chronic Open wounds of extremities (1 source) Amputated below knee; Translations: [Complete traumatic amputation at level between knee and ankle, unspecified lower leg, initial encounter] Chronic Open wounds of extremities (14 sources) Disorder of lower extremity; Translations: [Unspecified open wound, left lower leg, initial encounter] Episodic Osteoarthritis (5 sources) Osteoarthritis; Translations: [Osteoarthritis] 03-14-2016 Chronic Other aftercare (11 sources) Follow-up status; Translations: [Encounter for other orthopedic aftercare] 03-09-2020 Episodic Other bone disease and musculoskeletal deformities (20 sources) History of amputation of left leg through tibia and fibula; Translations: [Acquired absence of left leg below knee] Onset: 9 07-14-2019 Chronic Other circulatory disease (1 source) Abnormal peripheral pulse; Translations: [Other specified symptoms and signs involving the circulatory and respiratory systems] Episodic Other connective tissue disease (2 sources) Recurrent falls ; Translations: [Repeated falls] 08-10-2024 Episodic Other disorders of stomach and duodenum (14 sources) Gastroparesis syndrome; Translations: [Gastroparesis] Onset: 9 07-09-2019 Episodic Other disorders of stomach and duodenum (3 sources) Gastroparesis; Translations: [Gastroparesis] Episodic Other gastrointestinal disorders (1 source) Drug-induced constipation; Translations: [Drug-induced constipation] Episodic Other gastrointestinal disorders (1 source) Epigastric mass; Translations: [Epigastric mass] Episodic Other gastrointestinal disorders (1 source) Abdominal mass; Translations: [LLQ abdominal mass] Episodic Other gastrointestinal disorders (8 sources) Constipation; Translations: [Constipation, unspecified] 04-29-2022 Episodic Other gastrointestinal disorders (3 sources) Constipation, unspecified; Translations: [Constipation, unspecified] Episodic Other injuries and conditions due to external causes (11 sources) Local infection of wound; Translations: [Other injury of unspecified body region, initial encounter] 09-15-2021 Episodic Other injuries and conditions due to external causes (5 sources) Other injury of unspecified body region, initial encounter; Translations: [Posttraumatic wound infection not elsewhere classified] Episodic Other injuries and conditions due to external causes (4 sources) Wound discharge; Translations: [Other injury of unspecified body region, initial encounter] 11-17-2022 Episodic Other liver diseases (2 sources) Enzyme level - finding; Translations: [Elevated transaminase measurement] 01-06-2025 Episodic Other lower respiratory disease (4 sources) Cough; Translations: [Acute cough] Episodic Other lower respiratory disease (2 sources) Wheezing; Translations: [Wheezing] Episodic Other lower respiratory disease (1 source) Cough; Translations: [Acute cough] 08-13-2022 Episodic Other nervous system disorders (11 sources) Difficulty walking; Translations: [Difficulty in walking, not elsewhere classified] 09-05-2020 Chronic Other nervous system disorders (4 sources) Numbness and tingling sensation of skin; Translations: [Anesthesia of skin] 08-10-2024 Episodic Other nervous system disorders (2 sources) Paresthesia; Translations: [Paresthesia of skin] 06-23-2024 Episodic Other non-traumatic joint disorders (20 sources) Charcot's joint of foot; Translations: [Charcot's joint, right ankle and foot] Onset: 7 05-21-2018 Chronic Other non-traumatic joint disorders (12 sources) Charcot's arthropathy; Translations: [Charcot's joint, right ankle and foot] Chronic Other non-traumatic joint disorders (11 sources) Pain in left knee; Translations: [Left knee pain] 09-19-2020 Episodic Other nutritional; endocrine; and metabolic disorders (11 sources) History of diabetes mellitus type 1; Translations: [Personal history of other endocrine, nutritional and metabolic disease] 10-02-2021 Episodic Other nutritional; endocrine; and metabolic disorders (2 sources) Overweight; Translations: [Overweight] 11-13-2023 Episodic Other screening for suspected conditions (not mental disorders or infectious disease) (11 sources) Patient encounter status; Translations: [Encounter for screening for malignant neoplasm of colon] Onset: Episodic Other upper respiratory disease (1 source) Other seasonal allergic rhinitis; Translations: [Seasonal allergies] Onset: Chronic Other upper respiratory infections (1 source) Chronic sinusitis; Translations: [Chronic sinusitis, unspecified] 07-30-2023 Chronic Other upper respiratory infections (1 source) Sore throat symptom; Translations: [Acute pharyngitis, unspecified] 10-30-2023 Episodic Otitis media and related conditions (1 source) Unspecified Eustachian tube disorder, left ear; Translations: [Dysfunction of left eustachian tube] Onset: 5 Episodic Peripheral and visceral atherosclerosis (20 sources) Peripheral vascular disease; Translations: [Peripheral vascular disease, unspecified] Onset: 0 02-06-2022 Chronic Residual codes; unclassified (8 sources) Tobacco user; Translations: [Nicotine dependence, unspecified, uncomplicated] Onset: 5 03-14-2016 Chronic Residual codes; unclassified (1 source) Insomnia; Translations: [Insomnia, unspecified] Episodic Residual codes; unclassified (2 sources) Memory impairment; Translations: [Other amnesia] 08-10-2024 Episodic Residual codes; unclassified (2 sources) Altered mental status; Translations: [Altered mental status, unspecified] 01-06-2025 Episodic Skin and subcutaneous tissue infections (1 source) Cellulitis of left lower limb; Translations: [Cellulitis of left lower extremity] Spondylosis; intervertebral disc disorders; other back problems (4 sources) Spondylitis; Translations: [Arthritis of facet joint of lumbar spine] Onset: 9 09-30-2019 Chronic Spondylosis; intervertebral disc disorders; other back problems (4 sources) Arthritis of facet joint of lumbar spine; Translations: [Facet arthritis of lumbar region] Onset: 9 09-02-2018 Thyroid disorders (20 sources) Hypothyroidism; Translations: [Hypothyroidism, unspecified] Onset: 2 Chronic Unclassified (3 sources) History of amputation of left leg through tibia and fibula; Translations: [History of left below knee amputation] Onset: 0 09-30-2019 Past or Other Problems Problem Classification Problem Date Documented Da te Episodic/Chronic Acute and unspecified renal failure (4 sources) Acute injury of kidney; Translations: [DIYA (acute kidney injury)] Resolved: 8 05-21-2018 Esophageal disorders (4 sources) Ulcerative esophagitis; Translations: [Ulcerative esophagitis] Onset: 8 11-02-2017 Episodic Fracture of lower limb (4 sources) Closed fracture of left ankle; Translations: [Other fracture of left lower leg, initial encounter for closed fracture] Onset: 9 06-20-2019 Episodic Gastrointestinal hemorrhage (5 sources) Melena; Translations: [Melena] Resolved: 8 05-21-2018 Episodic Genitourinary symptoms and ill-defined conditions (20 sources) Microalbuminuria; Translations: [Proteinuria, unspecified] Onset: 6 01-25-2016 Episodic Mood disorders (20 sources) Depressive disorder; Translations: [Recurrent major depressive episodes, moderate ] Onset: 9 Resolved: 9 03-14-2016 Chronic Noninfectious gastroenteritis (5 sources) Colitis; Translations: [Colitis] Onset: 6 Resolved: 8 05-21-2018 Episodic Other acquired deformities (2 sources) Ankle joint deformity; Translations: [Unspecified acquired deformity of left lower leg] Onset: 9 05-27-2019 Episodic Other bone disease and musculoskeletal deformities (20 sources) Absence of lower limb; Translations: [Acquired absence of left leg below knee] Onset: 9 Resolved: 5 Chronic Other connective tissue disease (1 source) Repeated falls; Translations: [Frequent falls] Onset: 5 Episodic Other gastrointestinal disorders (20 sources) H/O: gastrointestinal disease; Translations: [Personal history of other endocrine, nutritional and metabolic disease] Onset: 6 05-21-2018 Episodic Other inflammatory condition of skin (20 sources) Inflammatory dermatosis; Translations: [Lichen simplex chronicus] Onset: 3 01-23-2023 Episodic Other nervous system disorders (1 source) Anesthesia of skin; Translations: [Numbness and tingling] Onset: 5 Episodic Other nervous system disorders (2 sources) Paresthesia of skin; Translations: [Numbness and tingling] Onset: 4 Episodic Other nutritional; endocrine; and metabolic disorders (20 sources) Intolerance to lactose; Translations: [Lactose intolerance, unspecified] Onset: 7 Resolved: 7 02-14-2017 Chronic Other nutritional; endocrine; and metabolic disorders (20 sources) Obesity; Translations: [Obesity, unspecified] Onset: 7 Resolved: 8 04-05-2018 Chronic Residual codes; unclassified (20 sources) Tobacco user; Translations: [Tobacco use] Onset: 5 03-14-2016 Episodic Residual codes; unclassified (1 source) Tobacco use; Translations: [Tobacco use current] Onset: 5 Episodic Residual codes; unclassified (1 source) Other amnesia; Translations: [Memory deficit] Onset: 5 Episodic Septicemia (except in labor) (20 sources) Sepsis; Translations: [Sepsis, unspecified organism] Onset: 9 Resolved: 1 05-21-2018 Episodic Skin and subcutaneous tissue infections (20 sources) Cellulitis; Translations: [Cellulitis, unspecified] Onset: 0 07-04-2020 Episodic Comment on above: Left lower extremity cellulitis at previous BKA stump. MRI confirmed underlying abscess Spondylosis; intervertebral disc disorders; other back problems (7 sources) Acute thoracic back pain; Translations: [Spinal stenosis in cervical region] Onset: 5 08-24-2024 Episodic Substance-related disorders (20 sources) History of drug abuse; Translations: [Other psychoactive substance abuse, in remission] Onset: 9 Resolved: 3 09-29-2018 Chronic Substance-related disorders (20 sources) Intravenous drug user; Translations: [Other psychoactive substance use, unspecified, uncomplicated] Onset: 9 Resolved: 2 06-20-2019 Episodic Unclassified (4 sources) Patient encounter status 08-25-2024 Results Test Name Value Interpretation Reference Range Facility Absolute lymphocyte countOrd ered By: Maryana Riojas on 01-06-2025 Lymphocytes Auto (Unsp spec) [#/Vol] 0.30 10*3/uL Low 0.83-4.51 [facility] Absolute neutrophil countOrd ered By: Maryana Riojas on 01-06-2025 Neutrophils (Bld) [#/Vol] 25.9 10*3/uL High 2.0-7.7 [facility] Anion gap in Serum or Plasma Ordered By: Maryana Riojas on 01-06-2025 Anion gap [Moles/Vol] TNP [facility] Comment on above: Test not performedPr evious reported result: 43 Edited by: KWESI on 01/06/25:1518 AMENDED REPORT 01/06/25 1518 GAP previously reported as: 43 H Previous reported result: 43 Edited by: AUTOINMiguel on 01/06/25:1519 AMENDED REPORT 01/06/25 151 GAP previously reported as: 43 H BUN/creatinine ratioOrdered By: Maryana Riojas on 01-06-2025 Urea nitrogen/Creatinine [Mass ratio] 30.5 mg/mg High 10-20 [facility] Beta-hydroxybutyrateOrdered By: Maryana Riojas on 01-06-2025 Beta hydroxybutyrate [Mass/Vol] 12.0 mmol/L High 0.0-0.3 [facility] Bilirubin Test strip Ql (U)O rdered By: Maryana Riojas on 01-06-2025 Bilirubin Ql (U) Negative Negative [facility] Bilirubin, totalOrdered By: Maryana Riojas on 01-06-2025 Bilirubin [Mass/Vol] 0.21 mg/dL 0.00-1.30 [facility] Blood eosinophils/100 leukoc ytesOrdered By: Maryana Riojas on 01-06-2025 Eosinophils/100 WBC (Bld) 1 % 0-5 [facility] Blood lymphocytes/100 leukoc ytesOrdered By: Maryana Riojas on 01-06-2025 Lymphocytes/100 WBC (Bld) 1 % Low 19-41 [facility] Blood monocytes/100 leukocyt esOrdered By: Maryana Riojas on 01-06-2025 Monocytes/100 WBC (Bld) 4 % 0-10 [facility] Blood segmented neutrophils/ 100 leukocytesOrdered By: Maryana Riojas on 01-06-2025 Segmented neutrophils/100 WBC (Bld) 94 % High 47-70 [facility] Carbon dioxide, total [Moles /volume] in Central venous bloodOrdered By: Maryana Riojas on 01-06-2025 CO2 [Moles/Vol] 4.2 mmol/L Low 21.0-32.0 [facility] Comment on above: Critical Result(s) C alled at: by: Results read back by same. Critical Result(s) Called at: 01/06/2025-03:18 by: Mo Pacheco to Suki Zuleyma. Results read back by same.Previous reported result: 4.2 mmol/LEdited by: AUTOINS on 01/06/25:1519 AMENDED REPORT 01/06/251518 CO2 previously reported as: 4.2 *L mmol/L Critical Result(s) Called at: by: Results read back by same. Chloride assayOrdered By: Angela Riojas on 01-06-2025 Chloride [Moles/Vol] 75 mmol/L Low 98-108 [facility] Erythrocyte distribution wid th ratioOrdered By: Maryana Riojas on 01-06-2025 Erythrocyte distribution width (RBC) [Ratio] 14.0 % 11.6-14.6 [facility] Erythrocyte distribution wid th standard deviationOrdered By: Maryana Riojas on 01-06-2025 Erythrocyte distribution width (RBC) [Ratio] 46.4 fl High 35.1-43.9 [facility] Erythrocyte morphology asses smentOrdered By: Maryana Riojas on 01-06-2025 RBC morphology finding Nom (Bld) NORM C+C NORMAL NORM C&C [facility] Glomerular filtration rate ( GFR) estimation/1.73 sq m using serum, plasma, or whole bOrdered By: Maryana Riojas on 01-06-2025 GFR/1.73 sq M.predicted among non-blacks MDRD (S/P/Bld) [Vol rate/Area] 30 mL/min/{1.73_m2} Low >60 [facility] Comment on above: mL/min/1.73m2 CKD-EP I Creatinine Equation (2020) Hematocrit Auto (Bld) [Volum e fraction]Ordered By: Maryana Riojas on 01-06-2025 Hematocrit (Bld) [Volume fraction] 39.8 % Low 40-54 [facility] Hemoglobin measurementOrdere d By: Maryana Riojas on 01-06-2025 Hemoglobin (Bld) [Mass/Vol] 12.9 g/dL Low 13.0-16.5 [facility] Ketones Test strip Ql (U)Ord ered By: Maryana Riojas on 01-06-2025 Ketones Ql (U) 15 mg/dl High Negative [facility] Laboratory - Chemistry and C hemistry - challengeOrdered By: Maryana Riojas on 01-06-2025 AST [Catalytic activity/Vol] 164 U/L High <38 [facility] Comment on above: Hemolysis present, R esults could be affected. Lactic acid measurementOrder ed By: Maryana Riojas on 01-06-2025 Lactate [Moles/Vol] 2.6 mmol/L High 0.0-2.0 [facility] Comment on above: Critical Result(s) C alled at: 01/06/2025-15:53 by: Mo Pacheco to Suki Amor. Results read back by same. Lipase measurementOrdered By : Maryana Riojas on 01-06-2025 Lipase [Catalytic activity/Vol] 74 U/L 13-75 [facility] Comment on above: Please note:LIPASE r evised reference range effective 22. New Lipase methodology. Expected to produce lower values than the previous assay method. NEW Reference Range: 13 - 75 U/L MCV (mean corpuscular volume ) determinationOrdered By: Maryana Riojas on 01-06-2025 MCV (RBC) [Entitic vol] 89.6 fL 80-94 [facility] Magnesium measurement (mass/ volume)Ordered By: Maryana Riojas on 01-06-2025 Magnesium (Unsp spec) [Mass/Vol] 2.6 mg/dL High 1.5-2.2 [facility] Mean corpuscular hemoglobin (MCH) determinationOrdered By: Maryana Riojas on 01-06-2025 MCH (RBC) [Entitic mass] 29.1 pg 27.0-32.0 [facility] Mean corpuscular hemoglobin concentration (MCHC) determinationOrdered By: Maryana Riojas on 01-06-2025 MCHC (RBC) [Mass/Vol] 32.4 g/dL 32-36 [facility] Mean platelet volume determi nationOrdered By: Maryana Riojas on 01-06-2025 Platelet mean volume (Bld) [Entitic vol] 11.0 fL 6.2-12.0 [facility] Microscopic analysis of urin e for red blood cells (RBC)Ordered By: Maryana Riojas on 01-06-2025 Microscopic analysis of urine for red blood cells (RBC) 5-10 SEEN /hpf 0-5 [facility] Mucus LM Ql (Urine sed)Order ed By: Maryana Riojas on 01-06-2025 Mucus Ql (Urine sed) 0 SEEN /hpf [facility] Nitrite Test strip Ql (U)Ord ered By: Maryana Riojas on 01-06-2025 Nitrite Ql (U) Negative Negative [facility] Platelet countOrdered By: Angela Riojas on 01-06-2025 Platelets (Bld) [#/Vol] 234 10*3/uL 150-450 [facility] Platelet estimateOrdered By: Maryana Riojas on 01-06-2025 Platelets LM Ql (Bld) ADEQUATE ADEQ [facility] Potassium measurement (mass/ volume)Ordered By: Maryana Riojas on 01-06-2025 Potassium (Unsp spec) [Mass/Vol] 4.8 mmol/L 3.3-5.1 [facility] Comment on above: Hemolysis present, R esults could be affected. Protein Test strip Ql (U)Ord ered By: Maryana Riojas on 01-06-2025 Protein Ql (U) 30 mg/dl High Negative [facility] RBC Auto (Bld) [#/Vol]Ordere d By: Maryana Riojas on 01-06-2025 RBC (Bld) [#/Vol] 4.44 10*6/uL Low 4.6-6.2 [facility] Serum creatinine measurement (mass/volume)Ordered By: Maryana Riojas on 01-06-2025 Creatinine [Mass/Vol] 2.52 mg/dL High 0.70-1.20 [facility] Serum globulin measurementOr dered By: Maryana Riojas on 01-06-2025 Globulin (S) [Mass/Vol] 2.6 g/dL 2.2-4.2 [facility] Serum glucose measurement (m ass/volume)Ordered By: Maryana Riojas on 01-06-2025 Glucose [Mass/Vol] 788 mg/dL High 70-99 [facility] Comment on above: Critical Result(s) C alled at: 01/06/2025-03:18 by: Mo Pacheco to Suki Amor. Results read back by same. Serum or plasma alanine braga otransferase (ALT) measurementOrdered By: Maryana Riojas on 01-06-2025 ALT [Catalytic activity/Vol] 61 U/L High <47 [facility] Serum or plasma albumin fam urement (mass/volume)Ordered By: Maryana Riojas on 01-06-2025 Albumin [Mass/Vol] 4.3 g/dL 3.5-5.0 [facility] Serum or plasma albumin/glob ulin mass ratioOrdered By: Maryana Riojas on 01-06-2025 Albumin/Globulin [Mass ratio] 1.6 {ratio} 0.9-2.4 [facility] Serum or plasma alkaline flip sphatase measurementOrdered By: Maryana Riojas on 01-06-2025 ALP [Catalytic activity/Vol] 132 U/L High 40-129 [facility] Serum or plasma calcium fam urement (mass/volume)Ordered By: Maryana Riojas on 01-06-2025 Calcium [Mass/Vol] 8.6 mg/dL 7.6-11.0 [facility] Serum or plasma ethanol fam urement (mass/volume)Ordered By: Maryana Riojas on 01-06-2025 Ethanol [Mass/Vol] mg/dL <10.1 [facility] Comment on above: This test is for med ical purposes only. The legal definition of intoxication varies according to local law. Serum or plasma urea nitroge n measurement (mass/volume)Ordered By: Maryana Riojas on 01-06-2025 Urea nitrogen [Mass/Vol] 77 mg/dL High 4-19 [facility] Sodium levelOrdered By: Maryana Riojas on 01-06-2025 Sodium [Moles/Vol] 122 mmol/L Low 133-145 [facility] Squamous epithelial cells de tection in urine sediment by light microscopyOrdered By: Maryana Riojas on 01-06-2025 Epithelial cells.squamous LM Ql (Urine sed) 0 SEEN /hpf 0-5 [facility] Total cell countOrdered By: Maryana Riojas on 01-06-2025 Cells counted Molgen (Bld/Tiss) [#] 100 MANUAL DIFF [facility] Total proteinOrdered By: Maya Riojas on 01-06-2025 Protein [Mass/Vol] 6.9 g/dL 5.9-8.4 [facility] Urine clarityOrdered By: Maya Riojas on 01-06-2025 Clarity (U) Sl. Cloudy Clear [facility] Urine color determinationOrd ered By: Maryana Riojas on 01-06-2025 Color (U) Yellow Yellow [facility] Urine glucose detectionOrder ed By: Maryana Riojas on 01-06-2025 Glucose Ql (U) 1000 mg/dl High Normal [facility] Urine leukocyte esterase det ection by dipstickOrdered By: Maryana Riojas on 01-06-2025 Leukocyte esterase Test strip Ql (U) Negative Negative [facility] Urine pHOrdered By: Maryana salgado on 01-06-2025 pH (U) 5.0 [pH] 5.0 - 8.0 [facility] Urine sediment bacteria coun t by microscopy (number/high power field)Ordered By: Maryana Riojas on 01-06-2025 Bacteria LM.HPF (Urine sed) [#/Area] 1 /[HPF] None Seen [facility] Urine specific gravity measu rementOrdered By: Maryana Riojas on 01-06-2025 Specific gravity (U) [Rel density] 1.025 1.002-1.030 [facility] Urine urobilinogen measureme ntOrdered By: Maryana Riojas on 01-06-2025 Urobilinogen Ql (U) Normal mg/dl Normal [facility] White blood cell (WBC) count Ordered By: Maryana Riojas on 01-06-2025 WBC (Bld) [#/Vol] 27.6 10*3/uL High 4.4-11.0 [facility] White blood cell countOrdere d By: Maryana Riojas on 01-06-2025 White blood cell count 0-5 SEEN /hpf 0-5 [facility] CNOVon 12-08-2024 CN Office Visit (INTMWS ) ----- TORI CANTOR ([id number]) 1975 M Date Time Provider Department 12/08/24 2:40 PM JAH MAS INTMWS During your visit today, we recorded the following information about you: Pulse Blood pressure Weight 98/minute 138/89 77.7 kg Jah Mas MD 12/08/2024 3:38 PM Signed This note was created using [employer]. Subjective Patient presents with: 4 month follow-up Tori Cantor is a 49 year old male. Recording using [employer] software for draft documentation of the visit was discussed with the patient/authorized technical service representative; all questions welcomed and answered. Patient/authorized technical service representative agreed to proceed Tori is a 49-year-old male with a history of DM, HTN, and depression, presenting for follow-up. Tori was seen by Rebecca Hoffman yesterday and reports that his blood pressure has been elevated despite current medications. He is currently on an insulin pump, which he states is not working optimally. He is using a LibreSensor to manually monitor glucose levels and reports that the Dexcom sensor was initially effective but encountered issues with compatibility and functionality. He is scheduled to follow up in 4 weeks to address these issues. His most recent A1c is 10.3%, down from 12.4% in July. Tori continues to smoke and expresses a desire to quit but has not tried any cessation aids. He denies chest pain, dyspnea, abdominal pain, emesis, or diarrhea. He reports a left earache for the past few weeks, accompanied by popping and flaking, but denies fever. He has a history of seasonal allergies, causing rhinorrhea and coughing, but is not currently taking any medication for it. He has not had a dilated eye exam since his cataract surgery 2.5 years ago, performed by Dr. Juan F Nuñez at [facility]. He reports ongoing numbness in his head and hands, which is monitored by neurology. He also reports back pain and is hesitant about surgical intervention. Tori is overdue for a colonoscopy but has encountered scheduling issues due to his use of marijuana for pain management, which requires an anesthesiologist. He is currently taking lisinopril 40 mg and amlodipine 5 mg for blood pressure control, as well as Zoloft for depression and anxiety. He reports worsening depression due to recent family deaths and increased stress from managing his father's estate. 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 Current Outpatient Medications Medication Sig amitriptyline (ELAVIL) 25 mg tablet Take 1 tablet by mouth daily at bedtime. atorvastatin (LIPITOR) 40 mg tablet Take 1 tablet by mouth daily at bedtime. For cholesterol. pantoprazole DR (PROTONIX) 40 mg tablet Take 1 tablet by mouth two times a day. sertraline (ZOLOFT) 50 mg tablet Take 1 tablet by mouth once daily. gabapentin (NEURONTIN) 300 mg capsule Take 1 cap three times a day during the day and 2 caps at bedtime lisinopril (ZESTRIL) 40 mg tablet Take 1 tablet by mouth once daily. levothyroxine (SYNTHROID) 25 mcg tablet Take 1 tablet by mouth every morning. albuterol HFA (PROVENTIL HFA, VENTOLIN HFA) 90 mcg/actuation inhaler Inhale 2 Puffs as instructed every 4 hours as needed for wheezing/shortness of breath. Insulin Dudley, Disposable, (BD ULTRAFINE III MINI PEN) 31 gauge x 3/16 USE WITH INSULIN PENS 4TIMES DAILY flash glucose sensor (FREESTYLE MAIKEL 2 SENSOR) kit Check 8 times per day amLODIPine (NORVASC) 10 mg tablet Take 1 tablet by mouth once daily. fluticasone (FLONASE) 50 mcg/actuation nasal spray Use 1 spray in each nostril daily at bedtime. ins (more content not included)... Normal [facility] Endocrinology Visit Reporton 12-07-2024 Endocrinology Visit Report [facility] [address] [place] [address] OFFICE VISIT Date of Service: 12/07/24 MR#: [id number] Acct: [id number] Name: TORI CANTOR Rep #: [id number] : 1975 Provider: ANDREW felix Age/Sex: 49/M [place] [facility] [place]: S[place] Intake Vital Signs 08/01/24 14:19 12/07/24 15:05 Height 5 ft 9 in 5 ft 9 in Weight: 163 lb BMI 24.0 BP 137/98 H 146/94 H Blood Pressure Location Rt brachial Lt brachial Position Sitting Sitting Pulse 98 111 H Pulse Source Monitor Monitor Pulse Oximetry (%) 97 93 Oxygen Delivery Method room air room air Intake Visit Reasons: 4 M FU, RS 11/16 Chief Complaint: f/u diabetes System Analyst Required: No Accompanied by: Self Is patient in pain?: Yes Allergies No Known Allergies Allergy (Verified 08/01/24 14:25) Medications ???Medication ???Instructions ???Recorded ???Confirmed ???Type gabapentin 300 mg capsule 300 mg PO 4X/DAY nerve pain 12/07/24 History pantoprazole 40 mg tablet,delayed 40 mg PO DAILY gerd 08/13/20 05/08/13 History release sertraline 50 mg tablet (Zoloft) 50 mg PO DAILY 03/05/22 12/07/24 H istory amitriptyline 25 mg tablet 25 mg PO QHS 06/17/22 12/07/24 His tory insulin glargine 100 unit/mL (3 35 unit (0.35 mL) subcut QHS #31.5 09/23/23 12/07/24 Rx mL) subcutaneous pen (Lantus mL Solostar U-100 Insulin) lisinopril 40 mg tablet 40 mg PO QDAY 11/11/23 12/07/24 Hi story insulin pump cartridge,automated #1 ea 02/10/24 12/07/24 Rx dose,BT with controller subcutaneous (Omnipod 5 G6 Intro Kit (Gen 5) subcutaneous cartridge with controller) amlodipine 10 mg tablet 10 mg PO DAILY #90 tabs 03/09/24 0 12/07/24 Rx atorvastatin 20 mg tablet 20 mg PO QHS #90 tabs 05/02/24 Rx blood sugar diagnostic (OneTouch #100 ea 05/02/24 12/07/24 Rx Verio test strips) blood-glucose meter (OneTouch #1 ea 05/02/24 12/07/24 Rx Verio Reflect Meter) blood-glucose sensor (FreeStyle #2 ea 08/01/24 12/07/24 Rx Maikel 2 Plus Sensor device) levothyroxine 25 mcg tablet 25 mcg PO DAILY thyroid #90 tabs 0 08/02/24 12/07/24 Rx cholecalciferol (vitamin D3) 125 125 mcg PO QDAY #90 caps 08/31/24 12/07/24 Rx mcg (5,000 unit) capsule insulin lispro 100 unit/mL 60 unit (0.6 mL) continuous 12/07/24 Rx subcutaneous solution (Humalog subcutaneous infusion .continuous U-100 Insulin) #54 mL insulin pump cart,auto,BT,G6/L #10 ea 11/21/24 12/07/24 Rx (Omnipod 5 (G6/Maikel 2 Plus) subcutaneous cartridge) [facility] Medical History 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 Tobacco use disorder Polyneuropathy due to type 1 diabetes mellitus Wound discharge MRSA infection Marijuana use Open wound Thyroid disease Insulin dependent diabetes mellitus Arthritis Uses wheelchair Bladder disease Injury of back Difficulty chewing Dietary restriction Amputation of left lower extremity below knee Type 1 diabetes Current use of insulin Back pain due to injury Stroke Restless legs History of stress test Gastroparesis Vision loss of right eye Vision loss of left eye Hearing loss, left Hearing loss, right Anemia Substance abuse Alcohol abuse Anxiety Depression Hypothyroidism Diabetes Chronic pain Rheumatoid arthritis Osteoporosis Pancreatitis GERD (gastroesophageal reflux disease) Hepatitis Smoker Asthma Chest pain Hypertension Migraines Seizures Charcot foot due to diabetes mellitus Charcot ankle Neuropathy Cellulitis ( 09/15/21) Diabetes mellitus Surgical History History of bilateral cataract extraction H/O tooth extraction History of left below knee amputation Family History Other Cancer Diabetes Heart disease Social History Smoking Status: Current every day smoker tobacco type: cigarettes HPI HPI Chief Complaint: f/u diabetes Details: TORI CANTOR, is a 49 M who presents to the office today for evaluation and management of diabetes. A1C today is 10.3%, improved from 08/01/24 at 12.4%. Currently using Omnipod with Miakel 2 plus; unfortunately, he did not realize that he was able to use current sensor with pump as a closed loop system. Late July he was switched from Dexcom CGM- it was not compatible with his phone, to maikel 2 plus so that he could benefit from closed loop system. He had an appt in our office at that time to get pump and sensor connected, he did not continue syncing system after that appt. He stated he (more content not included)... Normal [facility] - Hematology and Cell countsOrdered By: Rebecca Hoffman on 12-07-2024 HbA1c (Bld) [Mass fraction] 10.3 % High 4.2-6.3 [facility]20[facility] ----- TORI CANTOR ([id number]) 1975 M Date Time Provider Department 09/14/24 LIANET SILVESTRE During your visit today, we recorded the following information about you: Bonnie Duke 09/14/2024 1:44 PM Signed Patient calling to report that he is able to find transportation to [facility] for colonoscopy consult. Please submit orders then notify patient so he may follow up with schedulers. Anni Azevedo, RN 09/14/2024 1:52 PM Signed Patient needs colonoscopy order. Yoly Berumen PA-C 09/15/2024 12:14 PM Signed COLONOSCOPY BOWEL PREPARATION INSTRUCTIONS GOLYTELY/NULYTELY/TRILYTE /COLYTE Your doctor has scheduled you for a colonoscopy. To have a successful colonoscopy, you must have a clean colon, that is empty. A clean colon allows your doctor to see the entire colon AND diagnose issues like polyps or cancer. For doctors, a clean colon is like driving on a edmund day; a dirty colon like driving in a storm. It is very important that you follow these instructions exactly, or your colonoscopy might not be as effective, could be canceled, and you may need to do the bowel prep and the colonoscopy again. TRANSPORTATION REQUIREMENTS You are receiving IV sedation. For your safety, a responsible adult escort must accompany you to and from your procedure: Your adult escort MUST be present with you at check-in for your colonoscopy. Your adult escort MUST remain in the endoscopy area until you are discharged. Your adult escort MUST transport you home once you are discharged. You are NOT allowed to operate any form of transportation (i.e. drive a car, bicycle, etc.) or leave the Endoscopy Center ALONE. It is not safe to do so. If you cannot meet these requirements, your procedure will be canceled. MEDICATION REQUIREMENTS For your safety, certain medications will need to be stopped or adjusted before you can have your procedure: BLOOD THINNERS: If you take blood thinners, such as Coumadin (warfarin), Plavix (clopidogrel), Ticlid (ticlopidine hydrochloride), Agrylin (anagrelide), Xarelto (Rivaroxaban), Pradaxa (Dabigatran), Eliquis (Apixaban), or Effient (Prasugrel), contact the physician who is prescribing these medications at least 2 weeks prior to your procedure to discuss any necessary adjustments. DIABETES: If you take medications for diabetes, your dosage may need to be adjusted. If you are being treated for diabetes with insulin, diabetic pills, or other injectable medications do not take your REGULAR dose after midnight on the day of your procedure. If you are taking any other types of insulin such as Lantus, Humalog, NPH (long-acting insulin), or 70/30 insulin, take half your normal dose the day before your procedure. DIABETES/WEIGHT MANAGEMENT: If you take medications for weight-loss, your dosage may need to be adjusted Contact the doctor who prescribes this medication for further instructions. If you take medications for weight-loss like semaglutide (Ozempic, Wegovy, Rybelsus), dulaglutide (Trulicity), liraglutide (Victoza, Saxenda), exenatide (Byetta, Bydureon), or lixisenatide (Adylyxin), stop your medication 1 week prior to your procedure. If you take medications like canagliflozin (Invokana), dapagliflozin (Farxiga, Forxiga), empagliflozin (Jardiance), stop your medication 3 days prior to your procedure. If you take ertugliflozin (Steglatro) stop your medication 4 days prior to your procedure. IRON: If you take iron pills, STOP them 1 week BEFORE your procedure, may resume after. OTHER MEDS: May take all other medications (including aspirin, antibiotics, water pills / diuretics like Lasix or Metolozone, blood pressure meds, etc.) at their usual scheduled time with a sip of water. DIET REQUIREMENTS The day before your colonoscopy, you may have a clear liquid diet (see below). The day of your colonoscopy, you may continue a clear liquid diet until 3 hours before your colonoscopy. Within 3 hours of your colonoscopy, take only any medications (as above) with a sip of water. Clear Liquid Diet Broth (chicken, beef or vegetable broth or bullion. Just the broth, no solids). Water Coffee or Tea (NO milk or creamer), but sugar and sugar substitutes are allowed. Clear liquids including clear, yellow, green, blue (NO red, NO orange, NO purple) Sodas / soft drinks Gatorade or other sports drinks Fritz-Aid or flavored drinks Plain Jell-O or other gelatins Fruit juice (strained; no-pulp) Popsicles or hard candy BOWEL PREPARATION (GOLYTELY/NULYTELY/TRILYT E/COLYTE) Split Dosing Bowel Prep: This means drinking your bowel prep in two doses. Split dosing helps clean your colon better and makes it less likely that your procedure will be canceled. Fill your prescription for Golytely/Nulytely/Trilyte /Colyte: The afternoon before your colonoscopy, mix the solu (more content not included)... Normal [facility] CNCOon 09-01-2024 CNCO Letter Text [facility] CNOVon 09-01-2024 CNOV Office Visit (GENSWS ) ----- TORI CANTOR ([id number]) 1975 M Date Time Provider Department 09/01/24 3:00 PM LIANET SILVESTRE GENBASILIOS During your visit today, we recorded the following information about you: Temperature Pulse Respiration Blood pressure 98 degrees 102/minute 14/minute 170/108 Weight Height 74 kg 1.803 m Anita Todd LPN 09/01/2024 3:35 PM Signed REVIEW OF SYSTEMS: General: The patient denies fatigue, denies weight loss, denies weight gain, denies feeling hot, and denies feelings of cold. Eyes: The patient denies glaucoma, notes eye injury/surgery, does not wear glasses or contacts. Ear/Nose/Throat: The patient denies allergies, denies hayfever, denies ear infections, and denies bloody noses. Cardiovascular: The patient denies chest pain, denies heart disease, notes high blood pressure,denies cardiac stent, denies prior heart attack, denies irregular heart beat, denies high cholesterol, notes poor circulation, denies heart failure, other cardiac issues, denies claudication, denies cold feet, denies peripheral arterial stent. Respiratory: The patient denies tuberculosis, denies pneumonia, denies frequent cough, denies pulmonary embolism, denies shortness of breath, and denies coughing up blood. Gastrointestinal: The patient denies difficulty swallowing, denies acid reflux, denies ulcers, denies vomiting, denies jaundice/hepatitis, denies gallbladder problems, denies black or tarry stools, denies hemorrhoids, denies bleeding from rectum, denies diverticulitis, denies constipation, denies diarrhea, denies loss of stool control, and denies hernias. Kidney/Bladder: The patient denies kidney stones, denies urine infections, and denies bloody urine. Skin: The patient denies a history of skin cancer, denies bleeding/changing moles, and denies a history of skin rash. Neurologic: The patient notes a history of epilepsy/convulsions, notes headaches, denies head/spinal injuries, and denies stroke/TIA. Psychiatric: The patient denies psychiatric medications, notes depression, and denies voices, denies substance abuse. Endocrine: The patient denies thyroid disorders, notes diabetes, and denies hormonal problems. Hematologic: The patient denies a history of bruising, denies bleeding, and denies anemia, denies blood clots. Infections: The patient denies a history of measles and mumps, denies rheumatic fever, and denies sexually transmitted diseases. Musculoskeletal: The patient notes back pain/injury, denies back problems, denies sciatica, denies knee/foot trouble, denies arthritis, or denies gout. When was patient's last Mammogram screening? N/A Last Colonoscopy: Per patient in 2021 at [facility] but ate prior to and was not cleaned out. PHILOMENA Lindsay Kimberley, SHRUTHI.RETAINING ROOM CUTTER 09/01/2024 3:35 PM Signed HISTORY AND PHYSICAL Tori Cantor : 1975 REFERRING PHYSICIAN: Margarita Licona [address] [facility] [address] CHIEF COMPLAINT: Patient presents with: Consult: Colonoscopy HPI: Tori is a 49 year old male referred for endoscopy. Tori notes due for screening colonoscopy. Pt also recommended to have repeat EGD in 1 year (2022) d/t long segment macdonald's. Tori notes he is a patient of Dr. Prietos but he is scheduling endoscopy out 1 year. He has a c/o sulfur burps. Tori has T1DM which is uncontrolled. Last A1C was 10.9. Pt has a left BKA- spends most of the time in wheelchair Follows with pulmonology d/t lung cancer risk from smoking. Admits to dyspnea with dressing. MMRC score of 4. Daily marijuana use. Tori has undergone prior endoscopy. Last EGD AND Colonoscopy was 06/[address] Terrazas at [facility]. Sedation: MAC EGD Impressions : - Esophageal mucosal changes secondary to established long-segment Macdonald's disease. Biopsied. - Small hiatal hernia. - Enlarged gastric folds. - No gross lesions in the first portion of the duodenum. COLONOSCOPY Impressions : - Preparation of the colon was inadequate. - Diverticulosis in the recto-sigmoid colon, in the sigmoid colon and in the descending colon. - The entire examined colon is normal. - Stool in the entire examined colon. - The examination was otherwise normal. - No specimens collected. Distal esophagus, biopsy: Fragments of gastroesophageal mucosa with extensive intestinal metaplasia (goblet cell metaplasia) consistent with Macdonald?s esophagus. Moderate chronic inflammation. Negative for dysplasia. Current Outpatient Medications Medication Sig amitriptyline (ELAVIL) 25 mg tablet Take 1 tablet by mouth daily at bedtime. amLODIPine (NORVASC) 5 mg tablet Take 1 tablet by mouth once daily. atorvastatin (LIPITOR) 40 mg tablet Take 1 tablet by mouth daily at bedtime. For cholesterol. pantoprazole DR (PROTONIX) 40 mg tablet Take 1 table (more content not included)... Normal [facility] CT Chest for screening WO co ntraston 09-01-2024 IMPRESSION: LungRADS category: 2 LungRADS modifier: Significant other (S), coronary artery calcification, moderate or severe LungRADS 0 reason: n/a Recommendations: Continue annual screening with LDCT in 12 months. Other actionable findings: Moderate coronary artery calcifications. Reference: [employer]. Lung CT Screening Reporting and Data System (Lung-RADS). Available at: http://www.acr.org/Qualit y-Safety/Resources/LungRA DS Av Specialist: BEN Transcribe Date/Time: Sep 01 2024 2:40P Dictated by : JOSEPHINE WILSON MD This examination was interpreted and the report reviewed and electronically signed by: JOSEPHINE WILSON MD on Sep 01 2024 2:53PM [facility] DIVISION OF RADIOLOGY * * *Final Report* * * DATE OF EXAM: Sep 01 2024 2:14PM [facility] 0562 - CT LUNG SCREEN WO BANNER / PROCEDURE REASON: multiple diagnoses * * * * Physician Interpretation * * * * EXAMINATION: CHEST CT WITHOUT CONTRAST (LOW-DOSE CT LUNG CANCER SCREENING PROTOCOL) CLINICAL HISTORY: Lung cancer LDCT screening ? absence of signs or symptoms of lung cancer. Nicotine dependence (cigarettes). Baseline (initial) Technique: Spiral CT acquisition of the chest from the thoracic inlet to the upper abdomen without contrast. MQ: [id number] Patient characteristics: * Fxat-qe-Yrhob: 1975; Age at exam: 49 years * Gender: Male * Lung Disease: Asymptomatic (no signs or symptoms of lung disease) * Number of Pack Years: 35 * Current smoker (=0) or Number of Years since Quit: 0 * Ordering provider and NPI: JACQUES NETTLES [id number] * Interpreting radiologist and NPI: Dwayne [id number] Exam acquisition parameters: * Exam Date: 09/01/2024 2:14 PM * Site: [facility] * * CT System Philosophy Instructor: Siemens * CT System Model: Sensation * Tube Current-Time (mA-sec): 30 * Peak Voltage (kV): 120V * Scan Time (sec): 10.3 * Scan Volume (z-length, cm): -27.25 * Pitch: 0.75 * Slice Thickness (mm): 1.5 * CT Dose-Length Product: 90 mGy*cm * CT Dose Index: 2.30mGy * CT Dose Reduction Method: Automated exposure control(AEC) and iterative recon COMPARISON: None available. RESULT: Are nodules present? Yes, 1-5 nodules Nodule 1: This Perifissural nodule is located in the on slice number 153 with an average diameter of 3.8 mm (6.1 mm x 1.4 mm). Other lung nodule comments: None. Other findings: The central airways are patent without endobronchial lesion. Dependent changes and mild atelectasis at the lung bases. No consolidation. No pleural effusion. No thoracic lymphadenopathy. Mildly patulous upper esophagus. The thoracic aorta and main pulmonary artery are normal in caliber. The cardiac chambers are normal in size. Moderate coronary artery calcifications. No pericardial effusion or pericardial thickening. Degenerative changes of the thoracic spine. The soft tissues of the chest wall are unremarkable noting mild bilateral gynecomastia. The imaged upper abdomen discloses no acute abnormality. Emphysema: None. Coronary Artery Calcifications: Moderate. Incidental coronary calcium as automatically processed and calculated using AI: Total Coronary Calcium Score = [100+] Agatston Units Percentile Rank (age and gender matched relative to reference population): [75th-100th] percentile* [* [email or web address]] Localizer images: No additional findings. DIVISION OF RADIOLOGY Provider, [facility] - 09/01/2024 * * *Final Report* * * DATE OF EXAM: Sep 01 2024 2:14PM [facility] 0562 - CT LUNG SCREEN WO IVCON / PROCEDURE REASON: multiple diagnoses * * * * Physician Interpretation * * * * EXAMINATION: CHEST CT WITHOUT CONTRAST (LOW-DOSE CT LUNG CANCER SCREENING PROTOCOL) CLINICAL HISTORY: Lung cancer LDCT screening ? absence of signs or symptoms of lung cancer. Nicotine dependence (cigarettes). Baseline (initial) Technique: Spiral CT acquisition of the chest from the thoracic inlet to the upper abdomen without contrast. MQ: CTLCS_6 Patient characteristics: * Zqqq-qz-Awvlr: 1975; Age at exam: 49 years * Gender: Male * Lung Disease: Asymptomatic (no signs or symptoms of lung disease) * Number of Pack Years: 35 * Current smoker (=0) or Number of Years since Quit: 0 * Ordering provider and NPI: JACQUES [id number] * Interpreting radiologist and NPI: Wilson [id number] Exam acquisition parameters: * Exam Date: 09/01/2024 2:14 PM * Site: [facility] * * CT System Philosophy Instructor: Siemens * CT System Model: Sensation * Tube Current-Time (mA-sec): 30 * Peak Voltage (kV): 120V * Scan Time (sec): 10.3 * Scan Volume (z-length, cm): -27.25 * Pitch: 0.75 * Slice Thickness (mm): 1.5 * CT Dose-Length Product: 90 mGy*cm * CT Dose Index: 2.30mGy * CT Dose Reduction Method: Automated exposure control(AEC) and iterative recon COMPARISON: None available. RESULT: Are nodules present? Yes, 1-5 nodules Nodule 1: This Perifissural nodule is located in the on slice number 153 with an average diameter of 3.8 mm (6.1 mm x 1.4 mm). Other lung nodule comments: None. Other findings: The central airways are patent without endobronchial lesion. Dependent changes and mild atelectasis at the lung bases. No consolidation. No pleural effusion. No thoracic lymphadenopathy. Mildly patulous upper esophagus. The thoracic aorta and main pulmonary artery are normal in caliber. The cardiac chambers are normal in size. Moderate coronary artery calcifications. No pericardial effusion or pericardial thickening. Degenerative changes of the thoracic spine. The soft tissues of the chest wall are unremarkable noting mild bilateral gynecomastia. The imaged upper abdomen discloses no acute abnormality. Emphysema: None. Coronary Artery Calcifications: Moderate. Incidental coronary calcium as automatically processed and calculated using AI: Total Coronary Calcium Score = [100+] Agatston Units Percentile Rank (age and gender matched relative to reference population): [75th-100th] percentile* [* [email or web address] [email or web address]/[email or web address]] Localizer images: No additional findings. IMPRESSION IMPRESSION: LungRADS category: 2 LungRADS modifier: Significant other (S), coronary artery calcification, moderate or severe LungRADS 0 reason: n/a Recommendations: Continue annual screening with LDCT in 12 months. Other actionable findings: Moderate coronary artery calcifications. Reference: [employer]. Lung CT Screening Reporting and Data System (Lung-RADS). Available at: [email or web address]/Qualit [email or web address]/[email or web address] DS Av Specialist: BEN Transcribe Date/Time: Sep 01 2024 2:40P Dictated by : JOSEPHINE WILSON MD This examination was interpreted and the report reviewed and electronically signed by: JOSEPHINE WILSON MD on Sep 01 2024 2:53PM [facility] CT Chest for screening WO co ntrastOrdered By: Abida Provider on 09-01-[address] [facility] [address] LUNG SCREEN WO IVCONon CT LUNG SCREEN WO IVCON * * *Final Report* * * DATE OF EXAM: Sep 01 2024 2:14PM [facility] 0562 - CT LUNG SCREEN WO IVCON / PROCEDURE REASON: multiple diagnoses * * * * Physician Interpretation * * * * EXAMINATION: CHEST CT WITHOUT CONTRAST (LOW-DOSE CT LUNG CANCER SCREENING PROTOCOL) CLINICAL HISTORY: Lung cancer LDCT screening ? absence of signs or symptoms of lung cancer. Nicotine dependence (cigarettes). Baseline (initial) Technique: Spiral CT acquisition of the chest from the thoracic inlet to the upper abdomen without contrast. MQ: CTLCS_6 Patient characteristics: * Crjc-do-Szppj: 1975; Age at exam: 49 years * Gender: Male * Lung Disease: Asymptomatic (no signs or symptoms of lung disease) * Number of Pack Years: 35 * Current smoker (=0) or Number of Years since Quit: 0 * Ordering provider and NPI: JACQUES NETTLES [id number] * Interpreting radiologist and NPI: Dwayne [id number] Exam acquisition parameters: * Exam Date: 09/01/2024 2:14 PM * Site: [facility] * * CT System Philosophy Instructor: Siemens * CT System Model: Sensation * Tube Current-Time (mA-sec): 30 * Peak Voltage (kV): 120V * Scan Time (sec): 10.3 * Scan Volume (z-length, cm): -27.25 * Pitch: 0.75 * Slice Thickness (mm): 1.5 * CT Dose-Length Product: 90 mGy*cm * CT Dose Index: 2.30mGy * CT Dose Reduction Method: Automated exposure control(AEC) and iterative recon COMPARISON: None available. RESULT: Are nodules present? Yes, 1-5 nodules Nodule 1: This Perifissural nodule is located in the on slice number 153 with an average diameter of 3.8 mm (6.1 mm x 1.4 mm). Other lung nodule comments: None. Other findings: The central airways are patent without endobronchial lesion. Dependent changes and mild atelectasis at the lung bases. No consolidation. No pleural effusion. No thoracic lymphadenopathy. Mildly patulous upper esophagus. The thoracic aorta and main pulmonary artery are normal in caliber. The cardiac chambers are normal in size. Moderate coronary artery calcifications. No pericardial effusion or pericardial thickening. Degenerative changes of the thoracic spine. The soft tissues of the chest wall are unremarkable noting mild bilateral gynecomastia. The imaged upper abdomen discloses no acute abnormality. Emphysema: None. Coronary Artery Calcifications: Moderate. Incidental coronary calcium as automatically processed and calculated using AI: Total Coronary Calcium Score = [100+] Agatston Units Percentile Rank (age and gender matched relative to reference population): [75th-100th] percentile* [* [email or web address] [email or web address]] Localizer images: No additional findings. IMPRESSION: LungRADS category: 2 LungRADS modifier: Significant other (S), coronary artery calcification, moderate or severe LungRADS 0 reason: n/a Recommendations: Continue annual screening with LDCT in 12 months. Other actionable findings: Moderate coronary artery calcifications. Reference: [employer]. Lung CT Screening Reporting and Data System (Lung-RADS). Available at: http://[email or web address]/Qualit [email or web address]/[email or web address] DS Av Specialist: BEN Transcribe Date/Time: Sep 01 2024 2:40P Dictated by : JOSEPHINE WILSON MD This examination was interpreted and the report reviewed and electronically signed by: JOSEPHINE WILSON MD on Sep 01 2024 2:53PM EST [id number] Normal [facility] MR Brain WO contraston 09-01 * * *Final Report* * * DATE OF EXAM: Sep 01 2024 2:00PM [facility] 0294 - MRI BRAIN WO IVCON / PROCEDURE REASON: multiple diagnoses * * * * Physician Interpretation * * * * EXAMINATION: MRI BRAIN WO IVCON, MRI CERVICAL SPINE WO IVCON CLINICAL HISTORY: Numbness of the head, neck, and upper arms, neck pain TECHNIQUE: Routine brain and cervical spine MRI without contrast COMPARISON: Head CT, 04/08/2012 RESULT: Brain: Acute Change: There is no evidence of restricted diffusion to suggest an acute infarct. Hemorrhage: No evidence of prior parenchymal hemorrhage on the susceptibility weighted images. Mass Lesion/ Mass Effect: No evidence of an intracranial mass or extra-axial fluid collection. No significant mass effect. Chronic Change: The white matter is within normal limits of signal intensity for age. Parenchyma: No significant volume loss for age. The brain parenchyma is otherwise within normal limits of signal intensity and morphology. Ventricles: Normal caliber and morphology. Skull Base: Hypothalamic and pituitary region are unremarkable. No significant marrow replacement process. Vasculature: Major intracranial arterial structures and dural venous sinuses show typical flow voids. Other: Scattered paranasal sinus mucosal thickening. The mastoid air cells are clear. Bilateral lens replacements. The extracranial soft tissues are unremarkable. Cervical spine: Counting reference: Craniocervical junction. Anatomic Variants: None. Localizer images: Degenerative changes in the shoulders Alignment: Alignment is anatomic. Craniocervical junction: Craniocervical junction is normal. Cord: The visualized cord is within normal limits of signal intensity and morphology. Bone marrow signal/fracture: Degenerative endplate changes without associated marrow edema. No focal marrow lesion. No evidence of prior fracture. Cervical soft tissues: The paraspinal soft tissues are within normal limits. C2-C3: Canal and foramina are patent. C3-C4: Disc osteophyte complex with mild spinal canal narrowing. C4-C5: Disc osteophyte complex and facet and uncovertebral hypertrophy with mild spinal canal narrowing. C5-C6: Disc osteophyte complex, ligamentum flavum thickening, and facet and uncovertebral hypertrophy with moderate spinal canal narrowing as well as mild right and moderate left neural foramen narrowing. C6-C7: Disc osteophyte complex, ligamentum flavum thickening, and facet and uncovertebral hypertrophy with moderate spinal canal narrowing and mild bilateral neural foramen narrowing. C7-T1: Disc osteophyte complex without canal or foraminal narrowing. DIVISION OF RADIOLOGY Provider, [facility] - 09/01/2024 * * *Final Report* * * DATE OF EXAM: Sep 01 2024 2:00PM [facility] 0294 - MRI BRAIN WO IVCON / PROCEDURE REASON: multiple diagnoses * * * * Physician Interpretation * * * * EXAMINATION: MRI BRAIN WO IVCON, MRI CERVICAL SPINE WO IVCON CLINICAL HISTORY: Numbness of the head, neck, and upper arms, neck pain TECHNIQUE: Routine brain and cervical spine MRI without contrast COMPARISON: Head CT, 04/08/2012 RESULT: Brain: Acute Change: There is no evidence of restricted diffusion to suggest an acute infarct. Hemorrhage: No evidence of prior parenchymal hemorrhage on the susceptibility weighted images. Mass Lesion/ Mass Effect: No evidence of an intracranial mass or extra-axial fluid collection. No significant mass effect. Chronic Change: The white matter is within normal limits of signal intensity for age. Parenchyma: No significant volume loss for age. The brain parenchyma is otherwise within normal limits of signal intensity and morphology. Ventricles: Normal caliber and morphology. Skull Base: Hypothalamic and pituitary region are unremarkable. No significant marrow replacement process. Vasculature: Major intracranial arterial structures and dural venous sinuses show typical flow voids. Other: Scattered paranasal sinus mucosal thickening. The mastoid air cells are clear. Bilateral lens replacements. The extracranial soft tissues are unremarkable. Cervical spine: Counting reference: Craniocervical junction. Anatomic Variants: None. Localizer images: Degenerative changes in the shoulders Alignment: Alignment is anatomic. Craniocervical junction: Craniocervical junction is normal. Cord: The visualized cord is within normal limits of signal intensity and morphology. Bone marrow signal/fracture: Degenerative endplate changes without associated marrow edema. No focal marrow lesion. No evidence of prior fracture. Cervical soft tissues: The paraspinal soft tissues are within normal limits. C2-C3: Canal and foramina are patent. C3-C4: Disc osteophyte complex with mild spinal canal narrowing. C4-C5: Disc osteophyte complex and facet and uncovertebral hypertrophy with mild spinal canal narrowing. C5-C6: Disc osteophyte complex, ligamentum flavum thickening, and facet and uncovertebral hypertrophy with moderate spinal canal narrowing as well as mild right and moderate left neural foramen narrowing. C6-C7: Disc osteophyte complex, ligamentum flavum thickening, and facet and uncovertebral hypertrophy with moderate spinal canal narrowing and mild bilateral neural foramen narrowing. C7-T1: Disc osteophyte complex without canal or foraminal narrowing. IMPRESSION IMPRESSION: Normal brain MRI. Cervical spine degenerative changes most pronounced at C5-6 and C6-7, no abnormal cord signal Anatomic Variant: None. Assume 7 cervical vertebrae with counting from the craniocervical junction. Av Specialist: BEN Transcribe Date/Time: Sep 01 2024 3:28P Dictated by : ANGELITA ROMERO MD This examination was interpreted and the report reviewed and electronically signed by: ANGELITA ROMERO MD on Sep 01 2024 3:34PM [facility] MR Cervical spine WO contras ton 09-01-2024 * * *Final Report* * * DATE OF EXAM: Sep 01 2024 2:00PM [facility] 0297 - MRI CERVICAL SPINE WO IVCON / PROCEDURE REASON: Spinal stenosis of cervical region * * * * Physician Interpretation * * * * EXAMINATION: MRI BRAIN WO IVCON, MRI CERVICAL SPINE WO IVCON CLINICAL HISTORY: Numbness of the head, neck, and upper arms, neck pain TECHNIQUE: Routine brain and cervical spine MRI without contrast COMPARISON: Head CT, 04/08/2012 RESULT: Brain: Acute Change: There is no evidence of restricted diffusion to suggest an acute infarct. Hemorrhage: No evidence of prior parenchymal hemorrhage on the susceptibility weighted images. Mass Lesion/ Mass Effect: No evidence of an intracranial mass or extra-axial fluid collection. No significant mass effect. Chronic Change: The white matter is within normal limits of signal intensity for age. Parenchyma: No significant volume loss for age. The brain parenchyma is otherwise within normal limits of signal intensity and morphology. Ventricles: Normal caliber and morphology. Skull Base: Hypothalamic and pituitary region are unremarkable. No significant marrow replacement process. Vasculature: Major intracranial arterial structures and dural venous sinuses show typical flow voids. Other: Scattered paranasal sinus mucosal thickening. The mastoid air cells are clear. Bilateral lens replacements. The extracranial soft tissues are unremarkable. Cervical spine: Counting reference: Craniocervical junction. Anatomic Variants: None. Localizer images: Degenerative changes in the shoulders Alignment: Alignment is anatomic. Craniocervical junction: Craniocervical junction is normal. Cord: The visualized cord is within normal limits of signal intensity and morphology. Bone marrow signal/fracture: Degenerative endplate changes without associated marrow edema. No focal marrow lesion. No evidence of prior fracture. Cervical soft tissues: The paraspinal soft tissues are within normal limits. C2-C3: Canal and foramina are patent. C3-C4: Disc osteophyte complex with mild spinal canal narrowing. C4-C5: Disc osteophyte complex and facet and uncovertebral hypertrophy with mild spinal canal narrowing. C5-C6: Disc osteophyte complex, ligamentum flavum thickening, and facet and uncovertebral hypertrophy with moderate spinal canal narrowing as well as mild right and moderate left neural foramen narrowing. C6-C7: Disc osteophyte complex, ligamentum flavum thickening, and facet and uncovertebral hypertrophy with moderate spinal canal narrowing and mild bilateral neural foramen narrowing. C7-T1: Disc osteophyte complex without canal or foraminal narrowing. DIVISION OF RADIOLOGY Provider, [facility] - 09/01/2024 * * *Final Report* * * DATE OF EXAM: Sep 01 2024 2:00PM [facility] 0297 - MRI CERVICAL SPINE WO IVCON / PROCEDURE REASON: Spinal stenosis of cervical region * * * * Physician Interpretation * * * * EXAMINATION: MRI BRAIN WO IVCON, MRI CERVICAL SPINE WO IVCON CLINICAL HISTORY: Numbness of the head, neck, and upper arms, neck pain TECHNIQUE: Routine brain and cervical spine MRI without contrast COMPARISON: Head CT, 04/08/2012 RESULT: Brain: Acute Change: There is no evidence of restricted diffusion to suggest an acute infarct. Hemorrhage: No evidence of prior parenchymal hemorrhage on the susceptibility weighted images. Mass Lesion/ Mass Effect: No evidence of an intracranial mass or extra-axial fluid collection. No significant mass effect. Chronic Change: The white matter is within normal limits of signal intensity for age. Parenchyma: No significant volume loss for age. The brain parenchyma is otherwise within normal limits of signal intensity and morphology. Ventricles: Normal caliber and morphology. Skull Base: Hypothalamic and pituitary region are unremarkable. No significant marrow replacement process. Vasculature: Major intracranial arterial structures and dural venous sinuses show typical flow voids. Other: Scattered paranasal sinus mucosal thickening. The mastoid air cells are clear. Bilateral lens replacements. The extracranial soft tissues are unremarkable. Cervical spine: Counting reference: Craniocervical junction. Anatomic Variants: None. Localizer images: Degenerative changes in the shoulders Alignment: Alignment is anatomic. Craniocervical junction: Craniocervical junction is normal. Cord: The visualized cord is within normal limits of signal intensity and morphology. Bone marrow signal/fracture: Degenerative endplate changes without associated marrow edema. No focal marrow lesion. No evidence of prior fracture. Cervical soft tissues: The paraspinal soft tissues are within normal limits. C2-C3: Canal and foramina are patent. C3-C4: Disc osteophyte complex with mild spinal canal narrowing. C4-C5: Disc osteophyte complex and facet and uncovertebral hypertrophy with mild spinal canal narrowing. C5-C6: Disc osteophyte complex, ligamentum flavum thickening, and facet and uncovertebral hypertrophy with moderate spinal canal narrowing as well as mild right and moderate left neural foramen narrowing. C6-C7: Disc osteophyte complex, ligamentum flavum thickening, and facet and uncovertebral hypertrophy with moderate spinal canal narrowing and mild bilateral neural foramen narrowing. C7-T1: Disc osteophyte complex without canal or foraminal narrowing. IMPRESSION IMPRESSION: Normal brain MRI. Cervical spine degenerative changes most pronounced at C5-6 and C6-7, no abnormal cord signal Anatomic Variant: None. Assume 7 cervical vertebrae with counting from the craniocervical junction. [facility] Transcribe Date/Time: Sep 01 2024 3:28P Dictated by : ANGELITA ROMERO MD This examination was interpreted and the report reviewed and electronically signed by: ANGELITA ROMERO MD on Sep 01 2024 3:34PM [facility] MRI BRAIN WO IVCONon 025 MRI BRAIN WO IVCON * * *Final Report* * * DATE OF EXAM: Sep 01 2024 2:00PM [facility] 0294 - MRI BRAIN WO IVCON / PROCEDURE REASON: multiple diagnoses * * * * Physician Interpretation * * * * EXAMINATION: MRI BRAIN WO IVCON, MRI CERVICAL SPINE WO IVCON CLINICAL HISTORY: Numbness of the head, neck, and upper arms, neck pain TECHNIQUE: Routine brain and cervical spine MRI without contrast COMPARISON: Head CT, 04/08/2012 RESULT: Brain: Acute Change: There is no evidence of restricted diffusion to suggest an acute infarct. Hemorrhage: No evidence of prior parenchymal hemorrhage on the susceptibility weighted images. Mass Lesion/ Mass Effect: No evidence of an intracranial mass or extra-axial fluid collection. No significant mass effect. Chronic Change: The white matter is within normal limits of signal intensity for age. Parenchyma: No significant volume loss for age. The brain parenchyma is otherwise within normal limits of signal intensity and morphology. Ventricles: Normal caliber and morphology. Skull Base: Hypothalamic and pituitary region are unremarkable. No significant marrow replacement process. Vasculature: Major intracranial arterial structures and dural venous sinuses show typical flow voids. Other: Scattered paranasal sinus mucosal thickening. The mastoid air cells are clear. Bilateral lens replacements. The extracranial soft tissues are unremarkable. Cervical spine: Counting reference: Craniocervical junction. Anatomic Variants: None. Localizer images: Degenerative changes in the shoulders Alignment: Alignment is anatomic. Craniocervical junction: Craniocervical junction is normal. Cord: The visualized cord is within normal limits of signal intensity and morphology. Bone marrow signal/fracture: Degenerative endplate changes without associated marrow edema. No focal marrow lesion. No evidence of prior fracture. Cervical soft tissues: The paraspinal soft tissues are within normal limits. C2-C3: Canal and foramina are patent. C3-C4: Disc osteophyte complex with mild spinal canal narrowing. C4-C5: Disc osteophyte complex and facet and uncovertebral hypertrophy with mild spinal canal narrowing. C5-C6: Disc osteophyte complex, ligamentum flavum thickening, and facet and uncovertebral hypertrophy with moderate spinal canal narrowing as well as mild right and moderate left neural foramen narrowing. C6-C7: Disc osteophyte complex, ligamentum flavum thickening, and facet and uncovertebral hypertrophy with moderate spinal canal narrowing and mild bilateral neural foramen narrowing. C7-T1: Disc osteophyte complex without canal or foraminal narrowing. IMPRESSION: Normal brain MRI. Cervical spine degenerative changes most pronounced at C5-6 and C6-7, no abnormal cord signal Anatomic Variant: None. Assume 7 cervical vertebrae with counting from the craniocervical junction. Av Specialist: BEN Transcribe Date/Time: Sep 01 2024 3:28P Dictated by : ANGELITA ROMERO MD This examination was interpreted and the report reviewed and electronically signed by: ANGELITA ROMREO MD on Sep 01 2024 3:34PM EST [id number] Normal [facility] MRI CERVICAL SPINE WO IVCONo n 09-01-2024 MRI CERVICAL SPINE WO IVCON * * *Final Report* * * DATE OF EXAM: Sep 01 2024 2:00PM [facility] 0297 - MRI CERVICAL SPINE WO IVCON / PROCEDURE REASON: Spinal stenosis of cervical region * * * * Physician Interpretation * * * * EXAMINATION: MRI BRAIN WO IVCON, MRI CERVICAL SPINE WO IVCON CLINICAL HISTORY: Numbness of the head, neck, and upper arms, neck pain TECHNIQUE: Routine brain and cervical spine MRI without contrast COMPARISON: Head CT, 04/08/2012 RESULT: Brain: Acute Change: There is no evidence of restricted diffusion to suggest an acute infarct. Hemorrhage: No evidence of prior parenchymal hemorrhage on the susceptibility weighted images. Mass Lesion/ Mass Effect: No evidence of an intracranial mass or extra-axial fluid collection. No significant mass effect. Chronic Change: The white matter is within normal limits of signal intensity for age. Parenchyma: No significant volume loss for age. The brain parenchyma is otherwise within normal limits of signal intensity and morphology. Ventricles: Normal caliber and morphology. Skull Base: Hypothalamic and pituitary region are unremarkable. No significant marrow replacement process. Vasculature: Major intracranial arterial structures and dural venous sinuses show typical flow voids. Other: Scattered paranasal sinus mucosal thickening. The mastoid air cells are clear. Bilateral lens replacements. The extracranial soft tissues are unremarkable. Cervical spine: Counting reference: Craniocervical junction. Anatomic Variants: None. Localizer images: Degenerative changes in the shoulders Alignment: Alignment is anatomic. Craniocervical junction: Craniocervical junction is normal. Cord: The visualized cord is within normal limits of signal intensity and morphology. Bone marrow signal/fracture: Degenerative endplate changes without associated marrow edema. No focal marrow lesion. No evidence of prior fracture. Cervical soft tissues: The paraspinal soft tissues are within normal limits. C2-C3: Canal and foramina are patent. C3-C4: Disc osteophyte complex with mild spinal canal narrowing. C4-C5: Disc osteophyte complex and facet and uncovertebral hypertrophy with mild spinal canal narrowing. C5-C6: Disc osteophyte complex, ligamentum flavum thickening, and facet and uncovertebral hypertrophy with moderate spinal canal narrowing as well as mild right and moderate left neural foramen narrowing. C6-C7: Disc osteophyte complex, ligamentum flavum thickening, and facet and uncovertebral hypertrophy with moderate spinal canal narrowing and mild bilateral neural foramen narrowing. C7-T1: Disc osteophyte complex without canal or foraminal narrowing. IMPRESSION: Normal brain MRI. Cervical spine degenerative changes most pronounced at C5-6 and C6-7, no abnormal cord signal Anatomic Variant: None. Assume 7 cervical vertebrae with counting from the craniocervical junction. Av Specialist: [facility] Transcribe Date/Time: Sep 01 2024 3:28P Dictated by : ANGELITA ROMERO MD This examination was interpreted and the report reviewed and electronically signed by: ANGELITA ROMERO MD on Sep 01 2024 3:34PM EST [id number] Normal [facility] No Panel Informationon 09-01 IMPRESSION: Normal brain MRI. Cervical spine degenerative changes most pronounced at C5-6 and C6-7, no abnormal cord signal Anatomic Variant: None. Assume 7 cervical vertebrae with counting from the craniocervical junction. Av Specialist: [facility] Transcribe Date/Time: Sep 01 2024 3:28P Dictated by : ANGELITA ROMERO MD This examination was interpreted and the report reviewed and electronically signed by: ANGELITA ROMERO MD on Sep 01 2024 3:34PM EST DIVISION OF RADIOLOGY Radiology Study observation (narrative) [facility] No Panel InformationOrdered By: [facility] Provider on 09-01-2024 [facility] Nawaf 08-30-2024 CNPN Telephone ([email or web address]) ----- TORI CANTOR ([id number]) 1975 Date Time Provider Department 08/30/24 MARIE EDWARDS During your visit today, we recorded the following information about you: Julianna McgillPHILOMENA 08/30/2024 1:18 PM Signed Marie Edwards PA-C P Neuro Grace A1c not well controlled, continue following with PCP. ROGERIO Rodas Samaria, LPN 08/30/2024 1:25 PM Signed Called, someone answered and stated Tori isn't there and hung up. Will try later. Denys Orellana LPN August 30, 2024 1:25 PM Julianna Mcgill LPN 09/02/2024 2:38 PM Signed Pt voiced understanding. Julianna PHILOMENA Mcgill Allergies As of Date: 08/30/2024 (No Known Allergies) Date Reviewed: 08/24/2024 Reviewed by: Marie Edwards PA-C - Fully Assessed Reason for Visit: Results [95] Prescriptions as of 09/02/2024 - amitriptyline (ELAVIL) 25 mg tablet Take 1 tablet by mouth daily at bedtime. - amLODIPine (NORVASC) 5 mg tablet Take 1 tablet by mouth once daily. - atorvastatin (LIPITOR) 40 mg tablet Take 1 tablet by mouth daily at bedtime. For cholesterol. - pantoprazole DR (PROTONIX) 40 mg tablet Take 1 tablet by mouth two times a day. - sertraline (ZOLOFT) 50 mg tablet Take 1 tablet by mouth once daily. - gabapentin (NEURONTIN) 300 mg capsule Take 1 cap three times a day during the day and 2 caps at bedtime - lisinopril (ZESTRIL) 40 mg tablet Take 1 tablet by mouth once daily. - levothyroxine (SYNTHROID) 25 mcg tablet Take 1 tablet by mouth every morning. - insulin lispro (HUMALOG KWIKPEN) 100 unit/mL Inject 6 Units subcutaneously three times a day with meals. Plus sliding scale. Per [facility]. - albuterol HFA (PROVENTIL HFA, VENTOLIN HFA) 90 mcg/actuation inhaler Inhale 2 Puffs as instructed every 4 hours as needed for wheezing/shortness of breath. - Insulin Dudley, Disposable, (BD ULTRAFINE III MINI PEN) 31 gauge x 3/16 USE WITH INSULIN PENS 4TIMES DAILY - flash glucose sensor (FREESTYLE MAIKEL 2 SENSOR) kit Check 8 times per day Problem List As Of Date 08/30/2024 Noted Resolved Hypertension [I10] 11/23/2009 Abdominal pain, right lower quadrant [R10.31] 11/23/2009 01/25/2016 Abdominal pain, left lower quadrant [R10.32] 11/23/2009 01/25/2016 GERD (gastroesophageal reflux disease) [K21.9] 01/25/2016 Microalbuminuria [R80.9] 01/25/2016 History of diabetic gastroparesis [Z86.39] 01/25/2016 Diabetic polyneuropathy associated with type 1 *01/25/2016 Depression with anxiety [F41.8] 01/25/2016 Lactose intolerance [E73.9] 07/30/2016 02/14/2017 Charcot's joint of right foot [M14.671] 11/11/2016 Obesity [E66.9] 02/11/2017 04/05/2018 Hyperlipidemia [E78.5] 02/14/2017 Hep C w/o coma, chronic (HCC) [B18.2] 09/29/2018 10/30/2023 Moderate episode of recurrent major depressive *09/02/2018 09/29/2018 History of drug abuse in remission (HCC) [F19.1*09/29/2018 04/22/2023 IVDU (intravenous drug user) [F19.90] 05/27/2019 11/06/2021 Tobacco abuse [Z72.0] 05/27/2019 Nicotine use disorder, F17.2 [F17.200] 05/31/2019 02/05/2022 Sepsis (HCC) [A41.9] 06/09/2019 06/27/2021 Amputee, below knee, left (HCC) [Z89.512] 07/14/2019 08/10/2024 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)*11/06/2021 08/10/2024 Hypothyroidism [E03.9] 11/06/2021 PVD (peripheral vascular disease) (HCC) [I73.9] 01/10/2020 Moderate protein-calorie malnutrition (HCC) [E4*11/01/2021 11/12/2022 Non-healing wound of amputation stump (HCC) [T8*09/24/2022 01/23/2023 Skin ulcers (HCC) [L98.499] 09/24/2022 01/23/2023 Neurodermatitis [L28.0] 01/23/2023 Encounter Status:Closed by DEYNS ORELLANA on 08/30/24 Normal [facility] CNOVon 08-24-2024 CNOV Office Visit (NEMOWS ) ----- DEVAUGHNTORI ([id number]) 1975 M Date Time Provider Department 08/24/24 9:30 AM MARIE EDWARDS During your visit today, we recorded the following information about you: Pulse Blood pressure Weight 94/minute 143/78 74.9 kg Marie Edwards PA-C 08/24/2024 10:28 AM Signed [facility] Name: Tori Cantor Age: [age] year old Gender: male Primary Care Provider: Jah Mas MD Consult requested for paresthesias by Margarita Licona. Recommendations will be communicated via shared medical record or US mail. Chief Complaint:New Patient (Numbness, tingling, frequent falls- c/o feeling like he has blinders on, head feels numb, pt has hx of neuropathy) 08/24/2024 - General Neurology, Marie Edwards PA-C ASSESSMENT ASSESSMENT/PLAN: 1. Numbness and tingling - ICD9: 782.0, ICD10: R20.0, R20.2 (primary diagnosis) 2. Memory deficit - ICD9: 780.93, ICD10: R41.3 3. Frequent falls - ICD9: V15.88, ICD10: R29.6 4. Cerebral infarction, unspecified mechanism (HCC) - ICD9: 434.91, ICD10: I63.9 5. Spinal stenosis of cervical region - ICD9: 723.0, ICD10: M48.02 Patient with 3 to 4 months of constant numbness of the head, neck and upper arms which is new. Has longstanding history of neuropathy since he was in his 20s from type 1 diabetes mellitus, notes very poor glucose control ever since he was diagnosed at the age of 11. Notes constant neuropathy symptoms up to his hands, but a few months ago he woke up and the rest of his body was numb, this has been constant ever since. Notes some worsening dexterity in his hands as well but no significant weakness. Austin like his face was weak but was symmetric when he examined it. Did go to the emergency room and was told it was secondary to diabetic neuropathy and discharged. No etiology found so that he can think of, does not take any supplements, no heavy alcohol use, no chemotherapy or heavy metal exposure. Patient does have some decreased sensation to temperature to the posterior aspect of the head but his face is intact. Slight weakness of the left eyebrow but otherwise facial strength is intact. At this time, unclear etiology for symptoms, does have some weakness of his branch lead strength as well bilaterally, due to new onset symptoms will order MRI of the brain and cervical spine to look for any signs of stroke versus intracranial etiology, nerve compression or stenosis in his cervical spine. Discussed obtaining laboratory studies as well for further evaluation and patient is amenable. Patient agreeable to treatment plan of care at this time, questions were answered. Patient to follow-up after workup is completed. Marie Edwards PA-C Encounter Diagnosis ICD-10-CM 1. Numbness and tingling R20.0 SEDIMENTATION RATE, WESTERGREN R20.2 C-REACTIVE PROTEIN HEMOGLOBIN A1C VITAMIN B12 THYROID STIMULATING HORMONE PROT ELECT SERUM WITH ASHLEY AND INTERP METHYLMALONIC ACID MRI BRAIN WO IVCON 2. Memory deficit R41.3 3. Frequent falls R29.6 4. Cerebral infarction, unspecified mechanism (HCC) I63.9 MRI BRAIN WO IVCON 5. Spinal stenosis of cervical region M48.02 MRI CERVICAL SPINE WO IVCON Return in about 3 months (around 11/21/2024). Chart, labs,and relevant images reviewed. HPI: Saw PCP on 08/10/24 He reports worsening numbness/tingling RLE and bilateral arms, new onset facial numbness/tingling. He has been falling because of this. Also has concerns about memory loss. Diabetes is not well controlled. Seen by neuro for neuropathy in the past, last visist was 2017 outside [facility]. Poorly controlled DM. This is a 49 year old male presenting with paresthesias. Notes he has had a history of neuropathy since his 20s, has had type 1 diabetes and C was 11 with very poor glucose control. A few months ago he woke up 1 day and could not feel his head on the rest of his body. Notes that his baseline neuropathy was up to the mid forearms and down, has never experienced numbness and tingling in the head before. Went to the ER but was told it was likely secondary to diabetic neuropathy. Follow-up with his primary and there is concern for this being something neurologic and was referred. Does not feel he has any significant weakness but has difficulty moving the hands, worsening dexterity since this started. Has not had any labs or imaging since this began. Notes her symptoms have been constant ever since and have not been unchanged. Did have left leg amputation below the knee after he broke his ankle in 2019 and it was infected. States he is not diabetic related. However, glucose is still poorly controlled at this time. Takes gabapentin for his baseline neuropathy as well as amitriptyline with no significant benefit. Does note intermittent vision changes as well, this morning it feels like he has blind reso (more content not included)... Normal [facility] CRP SerPl-mCncon 08-24-2024 CRP [Mass/Vol] mg/L Normal <0.9 [facility] Comment on above: Order Comment: Alexandra merchant Type: BLOOD SPECIMENOrdering Facility: [facility] Address: [address] [place] [address] [place] [address] Performed By: #### 2 885-2, 1987-5, 2132-9, 3016-3 ####[facility] LABCLIA [id number] [facility] [id number] [address] [place] HbA1c (Bld)on 08-24-2024 Average glucose Estimated from glycated hemoglobin (Bld) [Mass/Vol] 266 mg/dL Normal [facility] Comment on above: Order Comment: Alexandra merchant Type: BLOOD SPECIMENOrdering Facility: [facility] Address: [address] [place] [address] Result Comment: eAG: (Estimated average glucose) is a calculated value from HgbA1c and is technical service representative of the average blood glucose level in the last 2-3 month period. Performed By: #### 5 5454-3 ####[facility] LABIA [id number] [place] [address] [place] HbA1c (Bld) [Mass fraction] 10.9 % High 4.3-5.6 [facility] Comment on above: Order Comment: Speci men Type: BLOOD SPECIMENOrdering Facility: [facility] Address: [address] [place] [address] Result Comment: Amer [place] Diabetes Association guidelines indicate that patients with HgbA1c in the range 5.7-6.4% are at increased risk for development of diabetes, and intervention by lifestyle modification may be beneficial. HgbA1c greater or equal to 6.5% is considered diagnostic of diabetes. Performed By: #### 5 5454-3 ####[facility] [id number] [place] Methylmalonate SerPl-sCncon 08-24-2024 Methylmalonate [Moles/Vol] 0.25 umol/L Normal <=0.40 [facility] Comment on above: Order Comment: Fredericki mayur Type: BLOOD SPECIMENOrdering Facility: [facility] Address: [address] [place] [address] Result Comment: This test was developed, and its performance characteristics determined by the [facility] Department of Pathology and Laboratory Medicine. It has not been cleared or approved by the FDA. The [facility] Department of Pathology and Laboratory Medicine is regulated under CLIA as qualified to perform high-complexity testing. This test is used for clinical purposes. It should not be regarded as investigational or for research. Performed By: #### 1 3964-2 ####[facility] [id number] [place] [address] [place] PROTEIN ELECTROPHORESIS SERU M WITH ASHLEY (P)on 08-24-2024 Albumin [Mass/Vol] 4.27 g/dL Normal 3.43-5.41 [facility] Comment on above: Order Comment: Speci men Type: BLOOD SPECIMENOrdering Facility: [facility] Address: [address] [place] [address] Performed By: #### L [id number] ####[facility] LABIA [id number] [place] [address] [place] Alpha 1 globulin Elph [Mass/Vol] 0.31 g/dL Normal 0.18-0.43 [facility] Comment on above: Order Comment: Speci men Type: BLOOD SPECIMENOrdering Facility: [facility] Address: [address] [place] [address] Performed By: #### L [id number] ####[facility] [id number] [place] [address] [place] Alpha 2 globulin Elph [Mass/Vol] 0.64 g/dL Normal 0.42-0.98 [facility] Comment on above: Order Comment: Speci men Type: BLOOD SPECIMENOrdering Facility: [facility] Address: [address] [place] [address] Performed By: #### L [id number] ####[facility] [id number] [place] [address] [place] Beta globulin Elph [Mass/Vol] 0.75 g/dL Normal 0.61-1.17 [facility] Comment on above: Order Comment: Speci men Type: BLOOD SPECIMENOrdering Facility: [facility] Address: [address] [place] [address] Performed By: #### L [id number] ####[facility] [id number] [place] [address] [place] COMMENT (SERUM PROT ELECTRO) Monoclonal Protein analysis (immunofixation) is not indicated. Normal [facility] Comment on above: Order Comment: Speci men Type: BLOOD SPECIMENOrdering Facility: [facility] Address: [address] [place] [address] Performed By: #### L [id number] ####[facility] LABCLIA [id number] [place] [address] [place] Gamma globulin Elph [Mass/Vol] 0.73 g/dL Normal 0.53-1.51 [facility] Comment on above: Order Comment: Speci men Type: BLOOD SPECIMENOrdering Facility: [facility] Address: [address] [place] [address] Performed By: #### L [id number] ####[facility] LABIA [id number] [place] [address] [place] M-PROTEIN LOCATION Normal [facility] Comment on above: Order Comment: Speci men Type: BLOOD SPECIMENOrdering Facility: [facility] Address: [address] [place] [address] Result Comment: Not Applicable. Performed By: #### L [id number] ####[facility] [id number] [address] [place] Protein Fractions [Interp] No definitive M protein is identified on protein electrophoresis. Normal No definitive M protein is identified on protein electrophore sis. [facility] Comment on above: Order Comment: Speci men Type: BLOOD SPECIMENOrdering Facility: [facility] Address: [address] [place] [address] Performed By: #### L [id number] ####[facility] LABIA [id number] [address] [place] Protein.monoclonal Elph [Mass/Vol] 0.00 g/dL Normal <=0.00 [facility] Comment on above: Order Comment: Speci men Type: BLOOD SPECIMENOrdering Facility: [facility] Address: [address] [place] [address] Performed By: #### L [id number] ####[facility] LABIA [id number] [place] [address] [place] SPE STAFF REVIEW Reviewed by Dr. Alana Hartley MD [facility] Comment on above: Order Comment: Speci men Type: BLOOD SPECIMENOrdering Facility: [facility] Address: [address] [place] [address] Performed By: #### L [id number] ####[facility] LABCLIA [id number] [place] [id number] [place] Prot SerPl-mCncon 08-24-2024 Protein [Mass/Vol] 6.7 g/dL Normal 6.3-8.0 [facility] Comment on above: Order Comment: Speci men Type: BLOOD SPECIMENOrdering Facility: [facility] Address: [address] [place] [address] Performed By: #### 2 885-2, 1987-11, 2132-03, 3 ####[facility] LABCLIA [id number] [place] [address] [place] TSH SerPl-aCncon 08-24-2024 TSH Qn 2.060 m[IU]/L Normal 0.270-4.200 [facility] Comment on above: Order Comment: Speci men Type: BLOOD SPECIMENOrdering Facility: [facility] Address: [address] [place] [address] Performed By: #### 2 885-2, 1987-11, 2132-03, 3 ####[facility] LABCLIA [id number] [place] [address] [place] Vit B12 SerPl-mCncon 025 Cobalamin (Vitamin B12) [Mass/Vol] 759 pg/mL Normal 232-1245 [facility] Comment on above: Order Comment: Speci men Type: BLOOD SPECIMENOrdering Facility: [facility] Address: [address] [place] [address] Performed By: #### 2 885-2, 1987-11, 2132-03, 3 ####[facility] LABCLIA [id number] [place] [address] [address] [facility] Nawaf 08-23-2024 CNPN Telephone (INTMWS) ----- TORI CANTOR ([id number]) 1975 M Date Time Provider Department 08/23/24 MARGARITA LICONA INTMWS During your visit today, we recorded the following information about you: Margarita Licona APRN.CNP 08/23/2024 7:11 AM Signed Patient requesting to have colonoscopy with [facility] instead of [facility]. He will need to see general surgery first Margarita Licona APRN.Mario Delcid MA 08/23/2024 8:22 AM Signed Please call patient to schedule Mario Lozano MA Allergies As of Date: 08/23/2024 (No Known Allergies) Date Reviewed: 08/22/2024 Reviewed by: Jacques Nettles APRN.MARTHA - Fully Assessed Primary Visit Diagnosis:Screen for colon cancer [Z12.11] Order(s):CONSULT TO GENERAL SURGERY [9011] Order #: [id number]: 1 FUTURE Prescriptions as of 08/29/2024 - amitriptyline (ELAVIL) 25 mg tablet Take 1 tablet by mouth daily at bedtime. - amLODIPine (NORVASC) 5 mg tablet Take 1 tablet by mouth once daily. - atorvastatin (LIPITOR) 40 mg tablet Take 1 tablet by mouth daily at bedtime. For cholesterol. - pantoprazole DR (PROTONIX) 40 mg tablet Take 1 tablet by mouth two times a day. - sertraline (ZOLOFT) 50 mg tablet Take 1 tablet by mouth once daily. - gabapentin (NEURONTIN) 300 mg capsule Take 1 cap three times a day during the day and 2 caps at bedtime - lisinopril (ZESTRIL) 40 mg tablet Take 1 tablet by mouth once daily. - levothyroxine (SYNTHROID) 25 mcg tablet Take 1 tablet by mouth every morning. - LANTUS SOLOSTAR U-100 INSULIN 100 unit/mL (3 mL) Inject 18 Units subcutaneously daily at bedtime. Per [facility]. - insulin lispro (HUMALOG KWIKPEN) 100 unit/mL Inject 6 Units subcutaneously three times a day with meals. Plus sliding scale. Per [facility]. - albuterol HFA (PROVENTIL HFA, VENTOLIN HFA) 90 mcg/actuation inhaler Inhale 2 Puffs as instructed every 4 hours as needed for wheezing/shortness of breath. - Insulin Dudley, Disposable, (BD ULTRAFINE III MINI PEN) 31 gauge x 3/16 USE WITH INSULIN PENS 4TIMES DAILY - flash glucose sensor (BatesHookSTYLE MAIKEL 2 SENSOR) kit Check 8 times per day Problem List As Of Date 08/23/2024 Noted Resolved Hypertension [I10] 11/23/2009 Abdominal pain, right lower quadrant [R10.31] 11/23/2009 01/25/2016 Abdominal pain, left lower quadrant [R10.32] 11/23/2009 01/25/2016 GERD (gastroesophageal reflux disease) [K21.9] 01/25/2016 Microalbuminuria [R80.9] 01/25/2016 History of diabetic gastroparesis [Z86.39] 01/25/2016 Diabetic polyneuropathy associated with type 1 *01/25/2016 Depression with anxiety [F41.8] 01/25/2016 Lactose intolerance [E73.9] 07/30/2016 02/14/2017 Charcot's joint of right foot [M14.671] 11/11/2016 Obesity [E66.9] 02/11/2017 04/05/2018 Hyperlipidemia [E78.5] 02/14/2017 Hep C w/o coma, chronic (HCC) [B18.2] 09/29/2018 10/30/2023 Moderate episode of recurrent major depressive *09/02/2018 09/29/2018 History of drug abuse in remission (HCC) [F19.1*09/29/2018 04/22/2023 IVDU (intravenous drug user) [F19.90] 05/27/2019 11/06/2021 Tobacco abuse [Z72.0] 05/27/2019 Nicotine use disorder, F17.2 [F17.200] 05/31/2019 02/05/2022 Sepsis (HCC) [A41.9] 06/09/2019 06/27/2021 Amputee, below knee, left (HCC) [Z89.512] 07/14/2019 08/10/2024 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)*11/06/2021 08/10/2024 Hypothyroidism [E03.9] 11/06/2021 PVD (peripheral vascular disease) (HCC) [I73.9] 01/10/2020 Moderate protein-calorie malnutrition (HCC) [E4*11/01/2021 11/12/2022 Non-healing wound of amputation stump (HCC) [T8*09/24/2022 01/23/2023 Skin ulcers (HCC) [L98.499] 09/24/2022 01/23/2023 Neurodermatitis [L28.0] 01/23/2023 Encounter Status:Closed by MARGARITA LICONA on 08/29/24 [facility] CNOVon 08-22-2024 CNOV Office Visit (PULMWS ) ----- TORI CANTOR ([id number]) 1975 M Date Time Provider Department 08/22/24 2:30 PM JACQUES NETTLES PULRosemarieWS During your visit today, we recorded the following information about you: Pulse Respiration Blood pressure 102/minute 16/minute 142/90 Jacques Nettles APRN.RETAINING ROOM CUTTER 08/22/2024 3:09 PM Signed LUNG SCREENING VISIT PRIMARY CARE PHYSICIAN: Jah Mas MD PULMONARY PROVIDER: none Results will be communicated via letter or electronic record if applicable. Visit Delivery: In Person Patient Visit Type: New to Screening Current or Ex-smoker? [Current Exam Type: baseline LDCT Number of Pack Years: 73 Current smoker (=0) REQUESTER: The referring provider advised the patient to have screening. HISTORY OF PRESENT ILLNESS: Tori Cantor is a 49 year old Active smoker who presents for lung screening. Left below the knee amputee, in a wheelchair. Respiratory symptoms include: SOB: Yes, at rest, dressing and bathing Chest tightness: No Coughing: Yes: With mucus White and Thick Hemoptysis: No Wheezing: Yes, in bed Fever/Chills: No Recent Respiratory Infection: Yes 06/2024 had bronchitis, no treatment required Unintentional weight loss: No Last 6 Encounter Wt Readings: Date: Wt: 08/10/2024 74.9 kg (165 lb 2 oz) 10/30/2023 74.3 kg (163 lb 11.2 oz) 07/29/2023 76.1 kg (167 lb 12.8 oz) 09/24/2022 72.5 kg (159 lb 12.8 oz) 08/13/2022 72.6 kg (160 lb) 05/09/2022 70.3 kg (155 lb) ECOG PERFORMANCE STATUS: 3- Capable of only limited selfcare, confined to bed/chair > 50% of waking hrs. Modified Medical Research [place] Dyspnea Scale (MMRC) I am too breathless to leave the house or I am breathless when dressing 4 PAST MEDICAL HISTORY Diagnosis Date Cellulitis of left lower extremity 07/20/2019 Charcot's joint of right foot 11/11/2016 Chronic bilateral low back pain without sciatica Closed trimalleolar fracture of left ankle 05/23/2019 Depression with anxiety 01/25/2016 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) 01/25/2016 Brittle, on disability. Dx 10 y.o. DKA (diabetic ketoacidosis) ([facility]) 08/2014, 10/2017 GERD (gastroesophageal reflux disease) 01/25/2016 Hep C w/o coma, chronic ([facility]) 09/29/2018 Epclusa x 12 weeks to 2021 History of drug abuse in remission ([facility]) 09/29/2018 History of ischemic colitis 03/14/2016 History of left below knee amputation ([facility]) 07/14/2019 Hyperlipidemia 02/14/2017 Hypertension Hypothyroidism 11/06/2021 IVDU (intravenous drug user) 05/27/2019 Lactose intolerance 07/30/2016 Moderate protein-calorie malnutrition (HCC) 11/01/2021 Neurodermatitis 01/23/2023 Non-healing wound of amputation stump (HCC) 09/24/2022 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 Repeat in 11/2022 recommended. EGD 11/02/2017 2014 IR VASCULAR ACCESS TEAM PICC INSERTION RADIO 06/17/2019 REVISION OF LOWER LEG Left 07/06/2020 IANDD, revision of BKA stump REVISION OF LOWER LEG Left 09/19/2021 IANDD stump REVISION OF LOWER LEG Left 01/27/2020 IANDD stump FAMILY HISTORY Problem Relation Age of Onset Hypertension Mother Diabetes Mother Stroke Mother Heart Mother CHF Cataract Mother Hypertension Father COPD Father Emphysema Father Colon Cancer Father Colon Cancer Paternal Grandfather Colon Cancer Paternal Uncle Lung Cancer No Family History amitriptyline (ELAVIL) 25 mg tablet Take 1 tablet by mouth daily at bedtime. amLODIPine (NORVASC) 5 mg tablet Take 1 tablet by mouth once daily. atorvastatin (LIPITOR) 40 mg tablet Take 1 tablet by mouth daily at bedtime. For cholesterol. pantoprazole DR (PROTONIX) 40 mg tablet Take 1 tablet by mouth two times a day. sertraline (ZOLOFT) 50 mg tablet Take 1 tablet by mouth once daily. gabapentin (NEURONTIN) 300 mg capsule Take 1 cap three times a day during the day and 2 caps at bedtime lisinopril (ZESTRIL) 40 mg tablet Take 1 tablet by mouth once daily. levothyroxine (SYNTHROID) 25 mcg tablet Take 1 tablet by mouth every morning. LANTUS SOLOSTAR U-100 INSULIN 100 unit/mL (3 mL) Inject 18 Units subcutaneously daily at bedtime. Per [facility]. insulin lispro (HUMALOG KWIKPEN) 100 unit/mL Inject 6 Units subcutaneously three times a day with meals. Plus sliding scale. Per [facility]. albuterol HFA (PROVENTIL HFA, VENTOLIN HFA) 90 mcg/actuation inhaler Inhale 2 Puffs as instructed every 4 hours as needed for wheezing/shortness of breath. Insulin Needl (more content not included)... Normal [facility] Endocrinology Visit Reporton 08-18-2024 Endocrinology Visit Report [facility] [address] [place] [address] OFFICE VISIT Date of Service: 08/18/24 MR#: [id number] Acct: [id number] Name: TORI CANTOR Rep #: [id number] : 1975 Provider: ANDREW felix Age/Sex: 49/M [place] [facility] [place]: Signed Intake Vital Signs 08/01/24 14:19 Height 5 ft 9 in BP 137/98 H Blood Pressure Location Rt brachial Position Sitting Pulse 98 Pulse Source Monitor Pulse Oximetry (%) 97 Oxygen Delivery Method room air Intake Visit Reasons: 1 Wk FU Chief Complaint: assistance with insulin pump use/pairing Allergies No Known Allergies Allergy (Verified 08/01/24 14:25) [facility] Medical History 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 Tobacco use disorder Polyneuropathy due to type 1 diabetes mellitus Wound discharge MRSA infection Marijuana use Open wound Thyroid disease Insulin dependent diabetes mellitus Arthritis Uses wheelchair Bladder disease Injury of back Difficulty chewing Dietary restriction Amputation of left lower extremity below knee Type 1 diabetes Current use of insulin Back pain due to injury Stroke Restless legs History of stress test Gastroparesis Vision loss of right eye Vision loss of left eye Hearing loss, left Hearing loss, right Anemia Substance abuse Alcohol abuse Anxiety Depression Hypothyroidism Diabetes Chronic pain Rheumatoid arthritis Osteoporosis Pancreatitis GERD (gastroesophageal reflux disease) Hepatitis Smoker Asthma Chest pain Hypertension Migraines Seizures Charcot foot due to diabetes mellitus Charcot ankle Neuropathy Cellulitis ( 09/15/21) Diabetes mellitus Surgical History History of bilateral cataract extraction H/O tooth extraction History of left below knee amputation Family History Other Cancer Diabetes Heart disease Social History Smoking Status: Current every day smoker tobacco type: cigarettes HPI HPI Chief Complaint: assistance with insulin pump use/pairing Details: TORI CANTOR, is a 49 M who presents to the office today for assistance pairing insulin pump with CGM. Patient was briefly using closed loop insulin pump system until he ran into issues accessing his Dexcom account from his new phone. Unfortunately; new phone is not compatible with Dexcom and he has been unable to use his pump properly for several months now. He has significant dexterity issues d/t chronic neuropathy and has difficulty checking his blood sugar via finger sticks. He was essentially using insulin pump only to receive basal rates. He would on occasion bolus for his food. At his appointment earlier this month, Dexcom CGM was switched to maikel 2 plus CGM as it is compatible with his phone. He was instructed to bring all products with him at today's appointment to show him how to apply system and link with his pump. Unfortunately; pharmacy filled Maikel 2 sensors and Maikel 2 plus sensors. These are not compatible with Omnipod 5 insulin pump. His diabetes is uncontrolled and he has had little success improving blood sugars without closed loop system. Assessment and Plan Assessment and Plan (1) Counseling for insulin pump: Status: Acute Plan: Dexcom G6 was paired and placed with assistance of RN. A cell phone was utilized to active Dexcom G6. CGM was then paired with Omnipod 5 insulin pump. Divya filled a pod in my presence and pod was placed with assistance from RN. I assured that he was paired properly with [place] for further review of CGM tracings by this provider. Patient's pharmacy was contacted and they stated that patient would be able to chart picker Maikel 2 plus as he will need to replace CGM in 10 days. Patient voiced understanding. 2 hour warm up for CGM was completed. Patient was contacted after he left the office and warm up process should have been completed. He states that he was in automated mode. I have spent [30] minutes today reviewing labs, records and history. Time includes coordinating care, interpretation of tests, discussion with patient's other health care providers via telephone. This also includes time I spent with the patient for exam, treatment plan and education as well as documenting clinical information. Plan Details Follow Up: 3 Months Coding Level of Care Code Off vis,est,level 4 Extra Time Spent Extra Time Spent Extra Time Spent: G2211 Diagnoses Counseling for insulin pump Z46.81 Additional Codes Extra Time Spent - Extra Time Spent (more content not included)... Normal [facility] CNOVon 08-10-2024 CNOV Office Visit (INTMWS ) ----- TORI CANTOR ([id number]) 1975 M Date Time Provider Department 08/10/24 5:40 PM MARGARITA LICONA INTMWS During your visit today, we recorded the following information about you: Pulse Respiration Blood pressure Weight 101/minute 12/minute 130/86 74.9 kg Margarita Licona APRN.CNP 08/10/2024 6:58 PM Signed Tori Cantor is a 49 year old male here for a Medicare wellness visit. Medicare Health Risk Assessment General Health Good Exercise: Minutes/Day 0 min Exercise: Days/Week 0 days Alcohol: Daily Use Never Alcohol: Drinks/Day Patient does not drink Alcohol: 6 or more drinks Never Feel off balance Yes Concerns: Teeth/Dentures No Concerns: Sexual function No Troubled by feelings None of the above Frequency: Eating healthy diet Several days ADLs requiring help Grocery shopping; Housework; Driving Safety precautions in home/vehicle Yes Smoke, vape, chews tobacco Yes, but I'm not ready to quit Difficulty hearing Yes Difficulty seeing Yes Current Providers Specialists: I have reviewed specialist-related care of the patient in the medical record. Current care team: Patient Care Team: Jah Mas MD as PCP - General (Internal Medicine) Jah Mas MD as PCP - Endocrinology (Internal Medicine) Maria Elena Parekh APRN.CNP as Referring (Nurse Practitioner) Maria Elena Parekh APRN.CNP as Referring (Nurse Practitioner) Margarita Licona APRN.CNP as Director [employer] (Internal Medicine) [facility] Medical/Family history review Reviewed and updated problem list, medical/surgical/family/s ocial history, medications, and allergies. Opioid use review Opioid Medications (last 90 days) No data to display Anxiety/Depression screening Recommendation: no further intervention at this time Cognitive screening Mini Cog Score: 3 Cognitive screening reviewed and No further action needed (score 3-5). Functional Observation Was the patient's Timed Up AND Go test unsteady or >= 12 seconds? No Advance Care Planning Patient did not wish or was not able to name a surrogate decision maker or provide an advance care plan Measurements BP 130/86 Pulse 101 Resp 12 Wt 74.9 kg (165 lb 2 oz) SpO2 99% BMI 24.38 kg/m? Vision Screening: Follows with optometry/ophthalmology Assessment/Plan Medicare annual wellness visit, initial (Z00.00) - Counseled on healthy diet and regular exercise - Fall avoidance information provided - Personalized prevention plan provided - Smoking cessation encouraged; discussed risks to health and quitting strategies. Patient is not ready to quit - Colorectal cancer screening - patient sees [facility] and will likely have done soon - Lung cancer screening - referral placed - Patient counseled on and acknowledged vaccine benefits/risks/side effects; VIS provided: Influenza - Follow-up for Medicare Wellness exam in one year Additional Concerns The following concerns were also discussed with the patient: He is taking all medications as prescribed, denies side effects. Diabetes is managed by cleaner operator. His last diabetic eye exam was over two years ago. He reports worsening numbness/tingling RLE and bilateral arms, new onset facial numbness/tingling. He has been falling because of this. Also has concerns about memory loss. Diabetes is not well controlled. BP 130/86 Pulse 101 Resp 12 Wt 74.9 kg (165 lb 2 oz) SpO2 99% BMI 24.38 kg/m? Physical Exam Vitals reviewed. Constitutional: Appearance: Normal appearance. Cardiovascular: Rate and Rhythm: Normal rate and regular rhythm. Pulses: Dorsalis pedis pulses are 1+ on the right side. Heart sounds: Normal heart sounds. Pulmonary: Effort: Pulmonary effort is normal. Breath sounds: Normal breath sounds. No wheezing, rhonchi or rales. Musculoskeletal: Right foot: Charcot foot present. Left Lower Extremity: Left leg is amputated below knee. Feet: Right foot: Protective Sensation: 6 sites tested. 0 sites sensed. Skin integrity: Skin integrity normal. Toenail Condition: Right toenails are normal. Skin: General: Skin is warm and dry. Neurological: Mental Status: He is alert. Psychiatric: Mood and Affect: Mood normal. ASSESSMENT/PLAN: 1. Medicare annual wellness visit, initial - ICD9: V70.0, ICD10: Z00.00 (primary diagnosis) See medicare wellness plan 2. Numbness and tingling - ICD9: 782.0, ICD10: R20.0, R20.2 Worsening, new onset facial numbness. Peripheral symptoms due to diabetic neuropathy, etiology unclear regarding facial symptoms. Patient also concerned about memory issues - CONSULT TO NEUROLOGY for further evaluation and recommendations 3. Memory deficit - ICD9: 780.93, ICD10: R41.3 As above - CONSULT TO NEUROLOGY 4. Frequent falls - (more content not included)... Normal [facility] Endocrinology Visit Reporton 08-01-2024 Endocrinology Visit Report [facility] [address] [place] [address] OFFICE VISIT Date of Service: 08/01/24 MR#: [id number] Acct: [id number] Name: TORI CANTOR Rep #: [id number] : 1975 Provider: ANDREW felix Age/Sex: 49/M [place] [facility] [place]: Signed Intake Vital Signs 02/10/24 14:12 06/19/24 07:43 08/01/24 14:19 Height 5 ft 9 in 5 ft 9 in 5 ft 9 in BP 137/98 H Blood Pressure Location Rt brachial Position Sitting Pulse 98 Pulse Source Monitor Pulse Oximetry (%) 97 Oxygen Delivery Method room air Intake Visit Reasons: 3 M FU Chief Complaint: f/u diabetes Is patient in pain?: Yes Pain scale (1-10): 7 Allergies No Known Allergies Allergy (Verified 08/01/24 14:25) Medications ???Medication ???Instructions ???Recorded ???Confirmed ???Type gabapentin 300 mg capsule 300 mg PO 4X/DAY nerve pain 08/13/20 08/01/24 History pantoprazole 40 mg tablet,delayed 40 mg PO DAILY gerd 08/13/20 08/01/24 History release sertraline 50 mg tablet (Zoloft) 50 mg PO DAILY 03/05/22 08/01/24 History amitriptyline 25 mg tablet 25 mg PO QHS 06/17/22 08/01/24 History insulin glargine 100 unit/mL (3 35 unit (0.35 mL) subcut QHS #31.5 09/23/23 08/01/24 Rx mL) subcutaneous pen (Lantus mL Solostar U-100 Insulin) lisinopril 40 mg tablet 40 mg PO QDAY 11/11/23 08/01/24 History insulin lispro 100 unit/mL 15 unit (0.15 mL) subcut TID #40.5 01/28/24 08/01/24 Rx subcutaneous pen (Humalog KwikPen mL (U-100) Insulin) insulin pump cartridge,automated #1 ea 02/10/24 08/01/24 Rx dose,BT with controller subcutaneous (Omnipod 5 G6 Intro Kit (Gen 5) subcutaneous cartridge with controller) levothyroxine 25 mcg tablet 25 mcg PO DAILY thyroid #90 tabs 02/12/24 08/01/24 Rx amlodipine 10 mg tablet 10 mg PO DAILY #90 tabs 03/09/24 08/01/24 Rx atorvastatin 20 mg tablet 20 mg PO QHS #90 tabs 05/02/24 08/01/24 Rx blood sugar diagnostic (OneTouch #100 ea 05/02/24 08/01/24 Rx Verio test strips) blood-glucose meter (OneTouch #1 ea 05/02/24 08/01/24 Rx Verio Reflect Meter) cholecalciferol (vitamin D3) 125 125 mcg PO QDAY #90 caps 05/02/24 08/01/24 Rx mcg (5,000 unit) capsule insulin lispro 100 unit/mL 60 unit (0.6 mL) continuous 06/23/24 08/01/24 Rx subcutaneous solution (Humalog subcutaneous infusion .continuous U-100 Insulin) #54 mL blood-glucose sensor (FreeStyle #2 ea 08/01/24 08/01/24 Rx Maikel 2 Plus Sensor device) insulin pump cart,auto,BT,G6/L #10 ea 08/01/24 08/01/24 Rx (Omnipod 5 (G6/Maikel 2 Plus) subcutaneous cartridge) [facility] Medical History 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 Tobacco use disorder Polyneuropathy due to type 1 diabetes mellitus Wound discharge MRSA infection Marijuana use Open wound Thyroid disease Insulin dependent diabetes mellitus Arthritis Uses wheelchair Bladder disease Injury of back Difficulty chewing Dietary restriction Amputation of left lower extremity below knee Type 1 diabetes Current use of insulin Back pain due to injury Stroke Restless legs History of stress test Gastroparesis Vision loss of right eye Vision loss of left eye Hearing loss, left Hearing loss, right Anemia Substance abuse Alcohol abuse Anxiety Depression Hypothyroidism Diabetes Chronic pain Rheumatoid arthritis Osteoporosis Pancreatitis GERD (gastroesophageal reflux disease) Hepatitis Smoker Asthma Chest pain Hypertension Migraines Seizures Charcot foot due to diabetes mellitus Charcot ankle Neuropathy Cellulitis ( 09/15/21) Diabetes mellitus Surgical History History of bilateral cataract extraction H/O tooth extraction History of left below knee amputation Family History Other Cancer Diabetes Heart disease Social History Smoking Status: Current every day smoker tobacco type: cigarettes HPI HPI Chief Complaint: f/u diabetes Details: TORI CANTOR, is a 49 M who presents to the office today for evaluation and management of diabetes. A1C today is 12.2%, increased from 05/02/24 at 9.9%. At his last appointment he stated he was unable to use closed loop system as his phone was locked up, preventing his ability to utilize CGM with pods. Unfortunately, issue has not been resolved. He got a new phone, but has not reached out to either our office or [facility] for assistance. Currently using Omnipod 5 without connecting CGM. He is checking his blood sugar 1-2 times daily and entering it into PDM; however, he i (more content not included)... [facility] Telephone (INT[facility]) ----- TORI CANTOR ([id number]) 1975 M Date Time Provider Department 07/01/24 JAH MAS During your visit today, we recorded the following information about you: Peewee Emelia Jimenez Rosemarie 07/01/2024 9:34 AM Signed [facility] Caller Name: Julianna Call Back Number [phone] Reason for Call: amlodipine Additional Information: Patient is switching pharmacies and [facility] received a script from [facility] for amlodipine 5 mg, but patient stated he believed it should be for 10 mg. Shirley Hopper RN 07/01/2024 10:01 AM Signed Please see other phone encounter/refill request for today. Per [facility] med list, pt is taking 5 mg of Amlodipine. Allergies As of Date: 07/01/2024 (No Known Allergies) Date Reviewed: 10/30/2023 Reviewed by: Lori Corbin OCCA - Fully Assessed Reason for Visit: Dose Clarification [4101] Cmt: amlodipine Prescriptions as of 07/01/2024 - pantoprazole DR (PROTONIX) 40 mg tablet take 1 tablet by mouth twice a day - gabapentin (NEURONTIN) 300 mg capsule Take 1 capsule by mouth four times daily for 180 days. - atorvastatin (LIPITOR) 40 mg tablet Take 1 tablet by mouth daily at bedtime. For cholesterol. - LANTUS SOLOSTAR U-100 INSULIN 100 unit/mL (3 mL) Inject 18 Units subcutaneously daily at bedtime. Per [facility]. - insulin lispro (HUMALOG KWIKPEN) 100 unit/mL Inject 6 Units subcutaneously three times a day with meals. Plus sliding scale. Per [facility]. - amLODIPine (NORVASC) 5 mg tablet Take 1 tablet by mouth once daily. - amitriptyline (ELAVIL) 25 mg tablet Take 1 tablet by mouth daily at bedtime. - levothyroxine (SYNTHROID) 25 mcg tablet Take 1 tablet by mouth every morning. - sertraline (ZOLOFT) 50 mg tablet Take 1 tablet by mouth once daily. - lisinopril (ZESTRIL) 40 mg tablet Take 1 tablet by mouth once daily. - albuterol HFA (PROVENTIL HFA, VENTOLIN HFA) 90 mcg/actuation inhaler Inhale 2 Puffs as instructed every 4 hours as needed for wheezing/shortness of breath. - Insulin Dudley, Disposable, (BD ULTRAFINE III MINI PEN) 31 gauge x 3/16 USE WITH INSULIN PENS 4TIMES DAILY - flash glucose sensor (FREESTYLE MAIKEL 2 SENSOR) kit Check 8 times per day Problem List As Of Date 07/01/2024 Noted Resolved Hypertension [I10] 11/23/2009 Abdominal pain, right lower quadrant [R10.31] 11/23/2009 01/25/2016 Abdominal pain, left lower quadrant [R10.32] 11/23/2009 01/25/2016 GERD (gastroesophageal reflux disease) [K21.9] 01/25/2016 Microalbuminuria [R80.9] 01/25/2016 History of diabetic gastroparesis [Z86.39] 01/25/2016 Diabetic polyneuropathy associated with type 1 *01/25/2016 Depression with anxiety [F41.8] 01/25/2016 Lactose intolerance [E73.9] 07/30/2016 02/14/2017 Charcot's joint of right foot [M14.671] 11/11/2016 Obesity [E66.9] 02/11/2017 04/05/2018 Hyperlipidemia [E78.5] 02/14/2017 Hep C w/o coma, chronic (HCC) [B18.2] 09/29/2018 10/30/2023 Moderate episode of recurrent major depressive *09/02/2018 09/29/2018 History of drug abuse in remission (HCC) [F19.1*09/29/2018 04/22/2023 IVDU (intravenous drug user) [F19.90] 05/27/2019 11/06/2021 Tobacco abuse [Z72.0] 05/27/2019 Nicotine use disorder, F17.2 [F17.200] 05/31/2019 02/05/2022 Sepsis (HCC) [A41.9] 06/09/2019 06/27/2021 Amputee, below knee, left (HCC) [Z89.512] 07/14/2019 Osteomyelitis of left tibia/BKA with MRSA ([facility])*11/06/2021 Hypothyroidism [E03.9] 11/06/2021 PVD (peripheral vascular disease) (HCC) [I73.9] 01/10/2020 Moderate protein-calorie malnutrition (HCC) [E4*11/01/2021 11/12/2022 Non-healing wound of amputation stump (HCC) [T8*09/24/2022 01/23/2023 Skin ulcers (HCC) [L98.499] 09/24/2022 01/23/2023 Neurodermatitis [L28.0] 01/23/2023 Encounter Status:Closed by SHIRLEY HOPPER on 07/01/24 Normal [facility] Basic Metabolic Profile (BMP )on 06-19-2024 BUN/CRE 12.5 RATIO Normal 10-20 [facility] Comment on above: Performed By: #### L 500.2500, L100.0100 #### [facility] [address] [place], [address] CA,Total 9.4 mg/dL Normal 8.5-10.1 [facility] Comment on above: Performed By: #### L 500.2500, L100.0100 #### [facility] [address] [place], [address] Chloride [Moles/Vol] 101 mmol/L Normal 98-107 [facility] Comment on above: Performed By: #### L 500.2500, L100.0100 #### [facility] [address] [place], [address] CO2 [Moles/Vol] 25.0 mmol/L Normal 21.0-32.0 [facility] Comment on above: Performed By: #### L 500.2500, L100.0100 #### [facility] [address] [place], [address] Creatinine [Mass/Vol] 0.96 mg/dL Normal 0.70-1.30 [facility] Comment on above: Result Comment: The validity of the calculated GFR GFRAA in patients over 70 years has not been determined. Clinical correlation is essential. Performed By: #### L 500.2500, L100.0100 #### [facility] [address] [place], [address] ECRCL 92.06 ml/min Normal [facility] Comment on above: Performed By: #### L 500.2500, L100.0100 #### [facility] [address] [place], [address] EST GFR - AA 107 mL/min Normal >60 [facility] Comment on above: Result Comment: Afri can Cambodian GFR Calc Performed By: #### L 500.2500, L100.0100 #### [facility] [address] [place], [address] GAP 13 Normal 5-15 [facility] Comment on above: Performed By: #### L 500.2500, L100.0100 #### [facility] [address] [place], [address] GFR/1.73 sq M.predicted among non-blacks MDRD (S/P/Bld) [Vol rate/Area] 88 mL/min/{1.73_m2} Normal >60 [facility] Comment on above: Result Comment: Non- GFR Calc Performed By: #### L 500.2500, L100.0100 #### [facility] [address] [place], [address] Glucose [Mass/Vol] 378 mg/dL High 74-106 [facility] Comment on above: Result Comment: Gluc ose result greater than or equal to 200 mg/dL suggests DIABETES MELLITUS per A.D.A. criteria. Performed By: #### L 500.2500, L100.0100 #### [facility] [address] [place], [address] Potassium [Moles/Vol] 4.6 mmol/L Normal 3.5-5.1 [facility] Comment on above: Performed By: #### L 500.2500, L100.0100 #### [facility] [address] [place], [address] Sodium [Moles/Vol] 139 mmol/L Normal 136-145 [facility] Comment on above: Performed By: #### L 500.2500, L100.0100 #### [facility] [address] [place], [address] Urea nitrogen [Mass/Vol] 12 mg/dL Normal 7-18 [facility] Comment on above: Performed By: #### L 500.2500, L100.0100 #### [facility] [address] [place], [address] Bedside Glucoseon 06-19-2024 FINGERSTICK GLU 362 mg/dL High 74-106 [facility] Comment on above: Result Comment: RYNE ARANA OF PATIENT CARE PER NURSING PROTOCOL Performed By: #### L 501.080 #### [facility] [address] [place], [address] CBC W/Diff, Automatedon 12 Absolute Lymph 2.05 X10 3/uL Normal 0.83-4.51 [facility] Comment on above: Performed By: #### L 500.2500, L100.0100 #### [facility] [address] [place], [address] Absolute Neut 5.9 X10 3/uL Normal 2.0-7.7 [facility] Comment on above: Performed By: #### L 500.2500, L100.0100 #### [facility] [address] [place], [address] Basophils/100 WBC (Bld) 0.9 % Normal 0-1 [facility] Comment on above: Performed By: #### L 500.2500, L100.0100 #### [facility] [address] [place], [address] Eosinophils/100 WBC (Bld) 2.6 % Normal 0-5 [facility] Comment on above: Performed By: #### L 500.2500, L100.0100 #### [facility] [address] [place] [place], [address] Erythrocyte distribution width (RBC) [Ratio] 13.4 % Normal 11.6-14.6 [facility] Comment on above: Performed By: #### L 500.2500, L100.0100 #### [facility] [address] [place], [address] Hematocrit (Bld) [Volume fraction] 45.5 % Normal 40-54 [facility] Comment on above: Performed By: #### L 500.2500, L100.0100 #### [facility] [address] [place], [address] Hemoglobin (Bld) [Mass/Vol] 15.0 g/dL Normal 13.0-16.5 [facility] Comment on above: Performed By: #### L 500.2500, L100.0100 #### [facility] [address] [place], [address] IG% 0.300 Normal 0.0-0.9 [facility] Comment on above: Result Comment: IG% - Immature Granulocytes (promyelocytes, myelocytes and metamyelocytes) > 1% indicates that a LEFT SHIFT is Present. Performed By: #### L 500.2500, L100.0100 #### [facility] [address] [place], [address] Lymphocytes/100 WBC (Bld) 23.5 % Normal 19-41 [facility] Comment on above: Performed By: #### L 500.2500, L100.0100 #### [facility] [address] [place], [address] MCH (RBC) [Entitic mass] 29.2 pg Normal 27.0-32.0 [facility] Comment on above: Performed By: #### L 500.2500, L100.0100 #### [facility] [address] [place], [address] MCHC (RBC) [Mass/Vol] 33.0 g/dL Normal 32-36 [facility] Comment on above: Performed By: #### L 500.2500, L100.0100 #### [facility] [address] [place], [address] MCV (RBC) [Entitic vol] 88.5 fL Normal 80-94 [facility] Comment on above: Performed By: #### L 500.2500, L100.0100 #### [facility] [address] [place], [address] Monocytes/100 WBC (Bld) 5.1 % Normal 0-10 [facility] Comment on above: Performed By: #### L 500.2500, L100.0100 #### [facility] [address] [place], [address] Neutrophils/100 WBC (Bld) 67.6 % Normal 47-70 [facility] Comment on above: Performed By: #### L 500.2500, L100.0100 #### [facility] [address] [place], [address] Nucleated RBC (Bld) [#/Vol] 0 10*3/uL Normal 0-5 [facility] Comment on above: Performed By: #### L 500.2500, L100.0100 #### [facility] [address] [place], [address] Platelet mean volume (Bld) [Entitic vol] 10.9 fL Normal 6.2-12.0 [facility] Comment on above: Performed By: #### L 500.2500, L100.0100 #### [facility] [address] [place], [address] Platelets (Bld) [#/Vol] 250 10*3/uL Normal 150-450 [facility] Comment on above: Performed By: #### L 500.2500, L100.0100 #### [facility] [address] [place], [address] RBC (Bld) [#/Vol] 5.14 10*6/uL Normal 4.6-6.2 [facility] Comment on above: Performed By: #### L 500.2500, L100.0100 #### [facility] [address] [place], [address] RDW SD 43.5 fl Normal 35.1-43.9 [facility] Comment on above: Performed By: #### L 500.2500, L100.0100 #### [facility] [address] [place], [address] WBC (Bld) [#/Vol] 8.7 10*3/uL Normal 4.4-11.0 [facility] Comment on above: Performed By: #### L 500.2500, L100.0100 #### [facility] [address] [place] [place], [address] Emergency Department Summary on 06-19-2024 Emergency Department Summary [facility] Medical Records Department [address] [place] [address] Emergency Department Summary 06/19/24 MR#: [id number] Acct: [id number] Name: TORI CANTOR Rep #: [id number] : 1975 49 From: Esteban Tam MD PCP: Dr. Jah Mas MD Status:DEP ER Location: ED HPI History of Present Illness Chief Complaint: Hyperglycemia Informant: patient Onset/Context/Timing Onset: Today Narrative Narrative: 49-year-old male history of insulin-dependent diabetes type 1 with gastroparesis substance abuse. No recent hospitalization. Has occasional nausea and vomiting but has not the last several days. Was seen in the emergency department had a full evaluation on the which was unremarkable. Currently the phone nova to go to his insulin pump is not working so he has not been checking his blood sugars for the last month or 2. Denies any fever. No other complaints. 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 Tobacco use disorder Polyneuropathy due to type 1 diabetes mellitus Wound discharge MRSA infection Marijuana use Open wound Thyroid disease Insulin dependent diabetes mellitus Arthritis Uses wheelchair Bladder disease Injury of back Difficulty chewing Dietary restriction Amputation of left lower extremity below knee Type 1 diabetes Current use of insulin Back pain due to injury Stroke Restless legs History of stress test Gastroparesis Vision loss of right eye Vision loss of left eye Hearing loss, left Hearing loss, right Anemia Substance abuse Alcohol abuse Anxiety Depression Hypothyroidism Diabetes Chronic pain Rheumatoid arthritis Osteoporosis Pancreatitis GERD (gastroesophageal reflux disease) Hepatitis Smoker Asthma Chest pain Hypertension Migraines Seizures Charcot foot due to diabetes mellitus Charcot ankle Neuropathy Cellulitis ( 09/15/21) Diabetes mellitus Home Medications ???Medication ???Instructions ???Recorded ???Last Taken ???Type gabapentin 300 mg capsule 300 mg PO 4X/DAY nerve pain 08/13/20 06/18/22 History pantoprazole 40 mg tablet,delayed 40 mg PO DAILY gerd 08/13/20 06/18/22 History release sertraline 50 mg tablet (Zoloft) 50 mg PO DAILY 03/05/22 06/18/22 History amitriptyline 25 mg tablet 25 mg PO QHS 06/17/22 06/18/22 History insulin glargine 100 unit/mL (3 35 unit (0.35 mL) subcut QHS #31.5 09/23/23 Unknown Rx mL) subcutaneous pen (Lantus mL Solostar U-100 Insulin) lisinopril 40 mg tablet 40 mg PO QDAY 11/11/23 Unknown History insulin lispro 100 unit/mL 15 unit (0.15 mL) subcut TID #40.5 01/28/24 Unknown Rx subcutaneous pen (Humalog KwikPen mL (U-100) Insulin) insulin pump cartridge,automated #1 ea 02/10/24 Unknown Rx dose,BT with controller subcutaneous (Omnipod 5 G6 Intro Kit (Gen 5) subcutaneous cartridge with controller) levothyroxine 25 mcg tablet 25 mcg PO DAILY thyroid #90 tabs 02/12/24 Unknown Rx amlodipine 10 mg tablet 10 mg PO DAILY #90 tabs 03/09/24 Unknown Rx insulin lispro 100 unit/mL 60 unit (0.6 mL) continuous 04/06/24 Unknown Rx subcutaneous solution (Humalog subcutaneous infusion .continuous U-100 Insulin) #54 mL insulin pump cart,automated,BT #10 ea 04/06/24 Unknown Rx (Omnipod 5 G6 Pods (Gen 5) subcutaneous cartridge) blood-glucose sensor (Dexcom G6 #3 ea 04/07/24 Unknown Rx Sensor device) blood-glucose transmitter (Dexcom #1 ea 04/07/24 Unknown Rx G6 Transmitter device) atorvastatin 20 mg tablet 20 mg PO QHS #90 tabs 05/02/24 Unknown Rx blood sugar diagnostic (OneTouch #100 ea 05/02/24 Unknown Rx Verio test strips) blood-glucose meter (OneTouch #1 ea 05/02/24 Unknown Rx Verio Reflect Meter) cholecalciferol (vitamin D3) 125 125 mcg PO QDAY #90 caps 05/02/24 Unknown Rx mcg (5,000 unit) capsule insulin pump cart,auto,BT,G6/7 #10 ea 05/23/24 Unknown Rx (Omnipod 5 G6-G7 Pods (Gen 5) subcutaneous cartridge) Allergy/AdvReac Type Severity Reaction Status Date / Time No Known Allergies Allergy Verified 06/19/24 07:48 Family History Other Cancer Diabetes Heart disease Surgical History History of bilateral cataract extraction H/O tooth extraction History of left below knee amputation Social History Smoking Status: Current every day smoker tobacco type: cigarettes ROS ROS ED ROS Narrative Occasional nausea and vomiting on the last few days. Constitutional Constitutional ED: Denies chills or fever(s) Eyes (more content not included)... Normal [facility] Acetone Serumon 06-15-2024 ACETONE SERUM Negative Normal NEG [facility] Comment on above: Performed By: #### L 500.4050 #### [facility] [address] [place], [address] Bedside Glucoseon 06-15-2024 FINGERSTICK GLU 278 mg/dL High 74-106 [facility] Comment on above: Result Comment: RYNE GEMENT OF PATIENT CARE PER NURSING PROTOCOL Performed By: #### L 501.080 #### [facility] [address] [place], [address] FINGERSTICK GLU 334 mg/dL High 74-106 [facility] Comment on above: Result Comment: RYNE GEMENT OF PATIENT CARE PER NURSING PROTOCOL Performed By: #### L 501.080 #### [facility] [address] [place], [address] Comprehensive Metabolic Prof ilon 06-15-2024 Albumin [Mass/Vol] 3.5 g/dL Normal 3.2-5.0 [facility] Comment on above: Order Comment: 'TROP ' Serial specimen #1, #2 or #3: 1 Performed By: #### L 500.4050 #### [facility] [address] [place], [address] Albumin/Globulin [Mass ratio] 1.2 {ratio} Normal 0.9-2.4 [facility] Comment on above: Order Comment: 'TROP ' Serial specimen #1, #2 or #3: 1 Performed By: #### L 500.4050 #### [facility] [address] [place], [address] ALK P 89 U/L Normal 45-117 [facility] Comment on above: Order Comment: 'TROP ' Serial specimen #1, #2 or #3: 1 Performed By: #### L 500.4050 #### [facility] [address] [place], [address] ALT [Catalytic activity/Vol] 16 U/L Normal 16-61 [facility] Comment on above: Order Comment: 'TROP ' Serial specimen #1, #2 or #3: 1 Performed By: #### L 500.4050 #### [facility] [address] [place], [address] AST [Catalytic activity/Vol] 14 U/L Low 15-37 [facility] Comment on above: Order Comment: 'TROP ' Serial specimen #1, #2 or #3: 1 Performed By: #### L 500.4050 #### [facility] [address] [place], [address] Bilirubin [Mass/Vol] 0.40 mg/dL Normal 0.20-1.00 [facility] Comment on above: Order Comment: 'TROP ' Serial specimen #1, #2 or #3: 1 Result Comment: For patients on eltrombopag therapy, use of Dimension Alpine TBIL is not recommended. Performed By: #### L 500.4050 #### [facility] [address] [place], [address] BUN/CRE 17.2 RATIO Normal 10-20 [facility] Comment on above: Order Comment: 'TROP ' Serial specimen #1, #2 or #3: 1 Performed By: #### L 500.4050 #### [facility] [address] [place], [address] CA,Total 8.5 mg/dL Normal 8.5-10.1 [facility] Comment on above: Order Comment: 'TROP ' Serial specimen #1, #2 or #3: 1 Performed By: #### L 500.4050 #### [facility] [address] [place], [address] Chloride [Moles/Vol] 99 mmol/L Normal 98-107 [facility] Comment on above: Order Comment: 'TROP ' Serial specimen #1, #2 or #3: 1 Performed By: #### L 500.4050 #### [facility] [address] [place], [address] CO2 [Moles/Vol] 27.0 mmol/L Normal 21.0-32.0 [facility] Comment on above: Order Comment: 'TROP ' Serial specimen #1, #2 or #3: 1 Performed By: #### L 500.4050 #### [facility] [address] [place], [address] Creatinine [Mass/Vol] 0.81 mg/dL Normal 0.70-1.30 [facility] Comment on above: Order Comment: 'TROP ' Serial specimen #1, #2 or #3: 1 Result Comment: The validity of the calculated GFR GFRAA in patients over 70 years has not been determined. Clinical correlation is essential. Performed By: #### L 500.4050 #### [facility] [address] [place], [address] EST GFR - AA 129 mL/min Normal >60 [facility] Comment on above: Order Comment: 'TROP ' Serial specimen #1, #2 or #3: 1 Result Comment: Afri can Cambodian GFR Calc Performed By: #### L 500.4050 #### [facility] [address] [place], [address] GAP 8 Normal 5-15 [facility] Comment on above: Order Comment: 'TROP ' Serial specimen #1, #2 or #3: 1 Performed By: #### L 500.4050 #### [facility] [address] [place], [address] GFR/1.73 sq M.predicted among non-blacks MDRD (S/P/Bld) [Vol rate/Area] 107 mL/min/{1.73_m2} Normal >60 [facility] Comment on above: Order Comment: 'TROP ' Serial specimen #1, #2 or #3: 1 Result Comment: Non- GFR Calc Performed By: #### L 500.4050 #### [facility] [address] [place], [address] Globulin (S) [Mass/Vol] 2.9 g/dL Normal 2.2-4.2 [facility] Comment on above: Order Comment: 'TROP ' Serial specimen #1, #2 or #3: 1 Performed By: #### L 500.4050 #### [facility] [address] [place], [address] Glucose [Mass/Vol] 379 mg/dL High 74-106 [facility] Comment on above: Order Comment: 'TROP ' Serial specimen #1, #2 or #3: 1 Result Comment: Gluc ose result greater than or equal to 200 mg/dL suggests DIABETES MELLITUS per A.D.A. criteria. Performed By: #### L 500.4050 #### [facility] [address] [place], [address] Potassium [Moles/Vol] 4.7 mmol/L Normal 3.5-5.1 [facility] Comment on above: Order Comment: 'TROP ' Serial specimen #1, #2 or #3: 1 Performed By: #### L 500.4050 #### [facility] [address] [place], [address] Sodium [Moles/Vol] 134 mmol/L Low 136-145 [facility] Comment on above: Order Comment: 'TROP ' Serial specimen #1, #2 or #3: 1 Performed By: #### L 500.4050 #### [facility] [address] [place], [address] T PROT 6.4 g/dL Normal 6.4-8.2 [facility] Comment on above: Order Comment: 'TROP ' Serial specimen #1, #2 or #3: 1 Performed By: #### L 500.4050 #### [facility] [address] [place], [address] Urea nitrogen [Mass/Vol] 14 mg/dL Normal 7-18 [facility] Comment on above: Order Comment: 'TROP ' Serial specimen #1, #2 or #3: 1 Performed By: #### L 500.4050 #### [facility] [address] [place], [address] L501.4020on 06-15-2024 TROPONIN-I HS 8 pg/mL Normal 3.0-78.0 [facility] Comment on above: Order Comment: 'TROP ' Serial specimen #1, #2 or #3: 1 Result Comment: Plea se Note: New Test Units and Gender Specific Reference Ranges. For more information see Policy Stat Procedure Alpine High Sensitivity Troponin (TNIH) and attachments. Performed By: #### L 500.4050 #### [facility] [address] [place], [address] Urinalysis, Completeon 06-15 BACTERIA 0 SEEN Normal None Seen [facility] Comment on above: Order Comment: COLLE CTOR TO SPECIFY Performed By: #### L 400.0001 #### [facility] [address] [place], [address] EPI,SQUAMOUS 0 SEEN Normal 0-5 [facility] Comment on above: Order Comment: COLLE CTOR TO SPECIFY Performed By: #### L 400.0001 #### [facility] [address] [place], [address] Mucus Ql (Urine sed) 0 SEEN Normal [facility] Comment on above: Order Comment: COLLE CTOR TO SPECIFY Performed By: #### L 400.0001 #### [facility] [address] [place], [address] RBC 0 SEEN Normal 0-5 [facility] Comment on above: Order Comment: COLLE CTOR TO SPECIFY Performed By: #### L 400.0001 #### [facility] [address] [place], [address] WBC 0 SEEN Normal 0-5 [facility] Comment on above: Order Comment: COLLE CTOR TO SPECIFY Performed By: #### L 400.0001 #### [facility] [address] [place], [address] CBC W/Diff, Automatedon 11-2 Absolute Lymph 1.75 X10 3/uL Normal 0.83-4.51 [facility] Comment on above: Performed By: #### L 500.4050 #### [facility] [address] [place], [address] Absolute Neut 6.3 X10 3/uL Normal 2.0-7.7 [facility] Comment on above: Performed By: #### L 500.4050 #### [facility] [address] [place], [address] Basophils/100 WBC (Bld) 1.2 % High 0-1 [facility] Comment on above: Performed By: #### L 500.4050 #### [facility] [address] [place], [address] Eosinophils/100 WBC (Bld) 5.5 % High 0-5 [facility] Comment on above: Performed By: #### L 500.4050 #### [facility] [address] [place], [address] Erythrocyte distribution width (RBC) [Ratio] 13.1 % Normal 11.6-14.6 [facility] Comment on above: Performed By: #### L 500.4050 #### [facility] [address] [place], [address] Hematocrit (Bld) [Volume fraction] 40.1 % Normal 40-54 [facility] Comment on above: Performed By: #### L 500.4050 #### [facility] [address] [place], [address] Hemoglobin (Bld) [Mass/Vol] 13.5 g/dL Normal 13.0-16.5 [facility] Comment on above: Performed By: #### L 500.4050 #### [facility] [address] [place], [address] IG% 0.300 Normal 0.0-0.9 [facility] Comment on above: Result Comment: IG% - Immature Granulocytes (promyelocytes, myelocytes and metamyelocytes) > 1% indicates that a LEFT SHIFT is Present. Performed By: #### L 500.4050 #### [facility] [address] [place], [address] Lymphocytes/100 WBC (Bld) 18.6 % Low 19-41 [facility] Comment on above: Performed By: #### L 500.4050 #### [facility] [address] [place], [address] MCH (RBC) [Entitic mass] 29.6 pg Normal 27.0-32.0 [facility] Comment on above: Performed By: #### L 500.4050 #### [facility] [address] [place], [address] MCHC (RBC) [Mass/Vol] 33.7 g/dL Normal 32-36 [facility] Comment on above: Performed By: #### L 500.4050 #### [facility] [address] [place], [address] MCV (RBC) [Entitic vol] 87.9 fL Normal 80-94 [facility] Comment on above: Performed By: #### L 500.4050 #### [facility] [address] [place], [address] Monocytes/100 WBC (Bld) 8.0 % Normal 0-10 [facility] Comment on above: Performed By: #### L 500.4050 #### [facility] [address] [place], [address] Neutrophils/100 WBC (Bld) 66.4 % Normal 47-70 [facility] Comment on above: Performed By: #### L 500.4050 #### [facility] [address] [place], [address] Nucleated RBC (Bld) [#/Vol] 0 10*3/uL Normal 0-5 [facility] Comment on above: Performed By: #### L 500.4050 #### [facility] [address] [place], [address] Platelet mean volume (Bld) [Entitic vol] 11.1 fL Normal 6.2-12.0 [facility] Comment on above: Performed By: #### L 500.4050 #### [facility] [address] [place], [address] Platelets (Bld) [#/Vol] 166 10*3/uL Normal 150-450 [facility] Comment on above: Performed By: #### L 500.4050 #### [facility] [address] [place], [address] RBC (Bld) [#/Vol] 4.56 10*6/uL Low 4.6-6.2 [facility] Comment on above: Performed By: #### L 500.4050 #### [facility] [address] [place], [address] RDW SD 42.4 fl Normal 35.1-43.9 [facility] Comment on above: Performed By: #### L 500.4050 #### [facility] [address] [place], [address] WBC (Bld) [#/Vol] 9.4 10*3/uL Normal 4.4-11.0 [facility] Comment on above: Performed By: #### L 500.4050 #### [facility] [address] [place], [address] Emergency Department Summary on 06-14-2024 Emergency Department Summary [facility] Medical Records Department [address] [place] [address] Emergency Department Summary 06/14/24 MR#: [id number] Acct: [id number] Name: TORI CANTOR Rep #: [id number] : 1975 49 From: Parish Tyler MD PCP: Dr. Jah Mas MD Status:DEP ER Location: ED HPI History of Present Illness Chief Complaint: Numb/Ting Informant: patient and EMS Narrative Narrative: Patient states he presents with multiple different issues. He lives in an apartment he is in and out of a wheelchair because of a Charcot foot on the right as well as a bad right knee and status post left BKA, and he has a home health aide that comes 3 times a week. He states he has chronic diabetic neuropathy in both feet and both hands as well as his right forearm from the elbow down to the hand. He is a type I diabetic. He has been having blood sugar issues because his Dexcom nova does not work and so he has been intermittently checking his blood sugar and feeding the numbers into his insulin pump, but he is not checking his sugar multiple times daily, for the last 1 or 2 weeks it has been mostly in the 300s, tonight in the 500s which he states is unusually high for him recently. Today he slept all day from 6 AM to 8 PM presents here around 10 PM, and he has not eaten anything and has not given himself any insulin. He states about a week ago he started having numbness and tingling in his head and face, diffuse bilateral nonlateralizing, and along with this the painful paresthesias in his right forearm and hand have been worse. Those symptoms have been persistent. He denies headache or vision change or any other new focal neurologic symptoms. For 5 days ago, states he was getting out of his wheelchair and feeling tired and a little weak, his right knee may have been why he fell which has happened before, states as he was getting out he fell to both of his knees, and then he sort of gently laid himself down on the right side without an apparent other injury, his knees have been okay, but within 30 or 60 minutes of the fall, he started having pain in the left side of his chest and has been there persistently, he states it feels like it injured muscle. He told his aide, his aide advised him to come to the ER if he got worse. States is not dyspnea, and he does not have a cough. He can move around without any severe pain in his left chest that is just been persistent. He has not noticed that moving makes it hurt worse. He also states he has been belching and it has been foul-smelling like sulfur but denies any abdominal pain, nausea, vomiting, diarrhea, blood [place] of the rectum, or melena. He also states his urine has been extremely dark and unusual for him even darker than usual given the pot that I use. 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 Tobacco use disorder Polyneuropathy due to type 1 diabetes mellitus Wound discharge MRSA infection Marijuana use Open wound Thyroid disease Insulin dependent diabetes mellitus Arthritis Uses wheelchair Bladder disease Injury of back Difficulty chewing Dietary restriction Amputation of left lower extremity below knee Type 1 diabetes Current use of insulin Back pain due to injury Stroke Restless legs History of stress test Gastroparesis Vision loss of right eye Vision loss of left eye Hearing loss, left Hearing loss, right Anemia Substance abuse Alcohol abuse Anxiety Depression Hypothyroidism Diabetes Chronic pain Rheumatoid arthritis Osteoporosis Pancreatitis GERD (gastroesophageal reflux disease) Hepatitis Smoker Asthma Chest pain Hypertension Migraines Seizures Charcot foot due to diabetes mellitus Charcot ankle Neuropathy Cellulitis ( 09/15/21) Diabetes mellitus Home Medications ???Medication ???Instructions ???Recorded ???Last Taken ???Type gabapentin 300 mg capsule 300 mg PO 4X/DAY nerve pain 08/13/20 06/18/22 History pantoprazole 40 mg tablet,delayed 40 mg PO DAILY gerd 08/13/20 06/18/22 History release sertraline 50 mg tablet (Zoloft) 50 mg PO DAILY 03/05/22 06/18/22 History amitriptyline 25 mg tablet 25 mg PO QHS 06/17/22 06/18/22 History insulin glargine 100 unit/mL (3 35 unit (0.35 mL) subcut QHS #31.5 09/23/23 Unknown Rx mL) subcutaneous pen (Lantus mL Solostar U-100 Insulin) lisinopril 40 mg tablet 40 mg PO QDAY 11/11/23 Unknown History insulin lispro 100 unit/mL 15 unit (0.15 mL) subcut TID #40.5 01/28/24 Unknown Rx subcutaneous pen (Humalog KwikPen mL (U-100) Insulin) insulin pump cartridge,automated #1 ea 02/10/24 Unknown Rx dose,BT with controller subcutaneous (Omnipod 5 G6 Intro Kit (Gen 5) subcutaneous cartridge with controller) (more content not included)... Normal [facility] Ribs Uni Min 3V w/PA Cheston 06-14-2024 Ribs Uni Min 3V w/PA Chest [facility] Imaging Services [address] [place] [address] Ribs Uni Min 3V w/PA Chest MR#: [id number] Acct: [id number] Name: TORI CANTOR Rep #: [id number] : 1975 M 49 From: Duarte Pickard MD PCP: Dr. Jah Mas MD Status: REG ER Study: Ribs Uni Min 3V w/PA Chest Date of Exam: 06/14 Exam# [id number] Ordering Dr: Parish Tyler MD [id number] INDICATION: Left-sided rib pain after fall EXAMINATION/TECHNIQUE: X-RAY - XR Ribs Unilateral W/ PA Chest Min 3 Views COMPARISON: 12/11/2021 FINDINGS: SOFT TISSUES: No soft tissue swelling or gas. BONES: Single view shows cortical irregularity suspicious for nondisplaced fracture left fourth rib laterally. No sclerotic or destructive changes observed. VISUALIZED LUNGS: Clear. No pneumothorax. RAD/Ribs Uni Min 3V w/PA Chest IMPRESSION: Probable nondisplaced fracture left fourth rib laterally. Electronically Signed: Duarte Pickard MD at 0:10 EST , CC: Dr. Parish Tyler MD; Dr. Jah Mas MD Av Specialist: Signed Normal [facility] Venous Blood Gason 4 Blood Gas Type JULIO Normal [facility] Comment on above: Performed By: #### L 9000.0810 #### [facility] [address] [place], [address] CO2 [Moles/Vol] 27 mmol/L Normal 23-33 [facility] Comment on above: Performed By: #### L 9000.0810 #### [facility] [address] [place], [address] FI02 21.0 Normal [facility] Comment on above: Performed By: #### L 9000.0810 #### [facility] [address] [place], [address] HCO3 (Bld) [Moles/Vol] 26 mmol/L Normal 22-26 [facility] Comment on above: Performed By: #### L 9000.0810 #### [facility] [address] [place], [address] O2 Delivery Dev Room Air [facility] Comment on above: Performed By: #### L 9000.0810 #### [facility] [address] [place], [address] SITE Not entered [facility] Comment on above: Performed By: #### L 9000.0810 #### [facility] [address] [place], [address] VBG BE 1 mmol/L Normal -1.0-3.5 [facility] Comment on above: Performed By: #### L 9000.0810 #### [facility] [address] [place], [address] VBG pCO2 42.4 mmHg Normal 41-51 [facility] Comment on above: Performed By: #### L 9000.0810 #### [facility] [address] [place], [address] VBG pH 7.39 Normal 7.32-7.42 [facility] Comment on above: Performed By: #### L 9000.0810 #### [facility] [address] [place], [address] VBG PO2 30 mmHg Normal 25-40 [facility] Comment on above: Performed By: #### L 9000.0810 #### [facility] [address] [place], [address] VBG SO2 57 Normal 50-70 [facility] Comment on above: Performed By: #### L 9000.0810 #### [facility] [address] [place], [address] CNCOon 05-18-2024 CNCO Letter Text Normal [facility] ilon 05-02-2024 Albumin [Mass/Vol] 4.0 g/dL Normal 3.2-5.0 [facility] Comment on above: Performed By: #### L 500.4050 #### [facility] [address] [place], [address] Albumin/Globulin [Mass ratio] 1.1 {ratio} Normal 0.9-2.4 [facility] Comment on above: Performed By: #### L 500.4050 #### [facility] [address] [place], [address] ALK P 91 U/L Normal 45-117 [facility] Comment on above: Performed By: #### L 500.4050 #### [facility] [address] [place], [address] ALT [Catalytic activity/Vol] 19 U/L Normal 16-61 [facility] Comment on above: Performed By: #### L 500.4050 #### [facility] [address] [place], [address] AST [Catalytic activity/Vol] 13 U/L Low 15-37 [facility] Comment on above: Performed By: #### L 500.4050 #### [facility] [address] [place], [address] Bilirubin [Mass/Vol] 0.50 mg/dL Normal 0.20-1.00 [facility] Comment on above: Result Comment: For patients on eltrombopag therapy, use of Dimension Alpine TBIL is not recommended. Performed By: #### L 500.4050 #### [facility] [address] [place], [address] BUN/CRE 13.8 RATIO Normal 10-20 [facility] Comment on above: Performed By: #### L [id number] #### [facility] [address] [place], [address] CA,Total 9.8 mg/dL Normal 8.5-10.1 [facility] Comment on above: Performed By: #### L 500.4050 #### [facility] [address] [place], [address] Chloride [Moles/Vol] 99 mmol/L Normal 98-107 [facility] Comment on above: Performed By: #### L 500.4050 #### [facility] [address] [place] [place], [address] CO2 [Moles/Vol] 29.0 mmol/L Normal 21.0-32.0 [facility] Comment on above: Performed By: #### L 500.4050 #### [facility] [address] [place], [address] Creatinine [Mass/Vol] 0.94 mg/dL Normal 0.70-1.30 [facility] Comment on above: Result Comment: The validity of the calculated GFR GFRAA in patients over 70 years has not been determined. Clinical correlation is essential. Performed By: #### L [id number] #### [facility] [address] [place], [address] EST GFR - AA 109 mL/min Normal >60 [facility] Comment on above: Result Comment: Afri can Cambodian GFR Calc Performed By: #### L [id number] #### [facility] [address] [place], [address] GAP 6 Normal 5-15 [facility] Comment on above: Performed By: #### L [id number] #### [facility] [address] [place], [address] GFR/1.73 sq M.predicted among non-blacks MDRD (S/P/Bld) [Vol rate/Area] 90 mL/min/{1.73_m2} Normal >60 [facility] Comment on above: Result Comment: Non- GFR Calc Performed By: #### L [id number] #### [facility] [address] [place], [address] Globulin (S) [Mass/Vol] 3.5 g/dL Normal 2.2-4.2 [facility] Comment on above: Performed By: #### L [id number] #### [facility] [address] [place], [address] Glucose [Mass/Vol] 223 mg/dL High 74-106 [facility] Comment on above: Result Comment: Gluc ose result greater than or equal to 200 mg/dL suggests DIABETES MELLITUS per A.D.A. criteria. Performed By: #### L [id number] #### [facility] [address] [place], [address] Potassium [Moles/Vol] 3.6 mmol/L Normal 3.5-5.1 [facility] Comment on above: Performed By: #### L [id number] #### [facility] [address] [place], [place], [address] Sodium [Moles/Vol] 133 mmol/L Low 136-145 [facility] Comment on above: Performed By: #### L [id number] #### [facility] [address] [place], [place], [address] T PROT 7.5 g/dL Normal 6.4-8.2 [facility] Comment on above: Performed By: #### L [id number] #### [facility] [address] [place], [place], [address] Urea nitrogen [Mass/Vol] 13 mg/dL Normal 7-18 [facility] Comment on above: Performed By: #### L [id number] #### [facility] [address] [place], [place], [address] Endocrinology Visit Reporton 05-02-2024 Endocrinology Visit Report [facility] [address] [place], [place] [address] OFFICE VISIT Date of Service: 05/02/24 MR#: [id number] Acct: [id number] Name: TORI CANTOR Rep #: [id number] : 1975 Provider: ANDREW felix Age/Sex: 49/M [place] [facility] [place]: S[place] Intake Vital Signs 02/10/24 14:12 05/02/24 14:35 Height 5 ft 9 in Weight: 174 lb BMI 25.7 BP 147/95 H 148/93 H Blood Pressure Location Lt brachial Lt brachial Position Sitting Sitting Pulse 97 94 Pulse Source Monitor Monitor Pulse Oximetry (%) 95 98 Oxygen Delivery Method room air room air Intake Visit Reasons: 3 M FU Chief Complaint: f/u diabetes Allergies No Known Allergies Allergy (Verified 02/10/24 14:17) Medications ???Medication ???Instructions ???Recorded ???Confirmed ???Type gabapentin 300 mg capsule 300 mg PO 4X/DAY nerve pain 08/13/20 05/02/24 History pantoprazole 40 mg tablet,delayed 40 mg PO DAILY gerd 08/13/20 05/02/24 History release sertraline 50 mg tablet (Zoloft) 50 mg PO DAILY 03/05/22 05/02/24 History amitriptyline 25 mg tablet 25 mg PO QHS 06/17/22 05/02/24 History insulin glargine 100 unit/mL (3 35 unit (0.35 mL) subcut QHS #31.5 09/23/23 02/10/24 Rx mL) subcutaneous pen (Lantus mL Solostar U-100 Insulin) lisinopril 40 mg tablet 40 mg PO QDAY 11/11/23 05/02/24 History insulin lispro 100 unit/mL 15 unit (0.15 mL) subcut TID #40.5 01/28/24 02/10/24 Rx subcutaneous pen (Humalog KwikPen mL (U-100) Insulin) insulin pump cartridge,automated #1 ea 02/10/24 05/02/24 Rx dose,BT with controller subcutaneous (Omnipod 5 G6 Intro Kit (Gen 5) subcutaneous cartridge with controller) levothyroxine 25 mcg tablet 25 mcg PO DAILY thyroid #90 tabs 02/12/24 05/02/24 Rx amlodipine 10 mg tablet 10 mg PO DAILY #90 tabs 03/09/24 05/02/24 Rx insulin lispro 100 unit/mL 60 unit (0.6 mL) continuous 04/06/24 05/02/24 Rx subcutaneous solution (Humalog subcutaneous infusion .continuous U-100 Insulin) #54 mL insulin pump cart,automated,BT #10 ea 04/06/24 05/02/24 Rx (Omnipod 5 G6 Pods (Gen 5) subcutaneous cartridge) blood-glucose sensor (Dexcom G6 #3 ea 04/07/24 05/02/24 Rx Sensor device) blood-glucose transmitter (Dexcom #1 ea 04/07/24 05/02/24 Rx G6 Transmitter device) atorvastatin 20 mg tablet 20 mg PO QHS #90 tabs 05/02/24 05/02/24 Rx blood sugar diagnostic (OneTouch #100 ea 05/02/24 05/02/24 Rx Verio test strips) blood-glucose meter (OneTouch #1 ea 05/02/24 05/02/24 Rx Verio Reflect Meter) cholecalciferol (vitamin D3) 125 125 mcg PO QDAY #90 caps 05/02/24 05/02/24 Rx mcg (5,000 unit) capsule [facility] Medical History 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 Tobacco use disorder Polyneuropathy due to type 1 diabetes mellitus Wound discharge MRSA infection Marijuana use Open wound Thyroid disease Insulin dependent diabetes mellitus Arthritis Uses wheelchair Bladder disease Injury of back Difficulty chewing Dietary restriction Amputation of left lower extremity below knee Type 1 diabetes Current use of insulin Back pain due to injury Stroke Restless legs History of stress test Gastroparesis Vision loss of right eye Vision loss of left eye Hearing loss, left Hearing loss, right Anemia Substance abuse Alcohol abuse Anxiety Depression Hypothyroidism Diabetes Chronic pain Rheumatoid arthritis Osteoporosis Pancreatitis GERD (gastroesophageal reflux disease) Hepatitis Smoker Asthma Chest pain Hypertension Migraines Seizures Charcot foot due to diabetes mellitus Charcot ankle Neuropathy Cellulitis ( 09/15/21) Diabetes mellitus Surgical History History of bilateral cataract extraction H/O tooth extraction History of left below knee amputation Family History Other Cancer Diabetes Heart disease Social History Smoking Status: Current every day smoker tobacco type: cigarettes HPI HPI Chief Complaint: f/u diabetes Details: TORI CANTOR, is a 49 M who presents to the office today for evaluation and management of diabetes. A1C today is 9.9%, improved from 02/10/24 at 10.7%. Since his last appointment he was started on Omnipod 5, he has not been able to use his Dexcom with his pump because he is having difficulty with his phone. He has been checking his blood sugar with finger sticks and bolusing corrections. BGL in our office was 260. Aside from current phone issues, he is very pleased with system. Reports significan (more content not included)... [facility] Telephone (INTMWS) ----- TORI CANTOR ([id number]) 1975 M Date Time Provider Department 03/23/24 JAH MAS INTCANDY During your visit today, we recorded the following information about you: Ibeth, Juju 03/23/2024 1:55 PM Signed Tori is calling Jah Mas MD today. Patients ENT specialist is recommending he take two tablets of the 40 mg pantoprazole. Patient wanted to get the okay from his PCP office before increase medication to 80 mg Please advise Margarita Licona APRN.RETAINING ROOM CUTTER 03/24/2024 7:06 AM Signed Okay to increase Protonix Margarita Licona APRN.Brian Locke MA 03/24/2024 10:54 AM Signed Left message to call office. 03/24/2024 10:54 AM Di Mccarty LPN 03/24/2024 12:16 PM Signed Spoke with pt and information listed below given. Pt verbalizes understanding. Di Mccarty LPN Allergies As of Date: 03/23/2024 (No Known Allergies) Date Reviewed: 10/30/2023 Reviewed by: Lori Corbin OCCA - Fully Assessed Reason for Visit: Medication Question [1478] Visit Diagnosis:Gastroesophagea l reflux disease, unspecified whether esophagitis present [K21.9] Order(s):pantoprazole DR (PROTONIX) 40 mg tabletTake 1 tablet by mouth two times a day.Disp: 60 tabletRfl: 1 Prescriptions as of 03/24/2024 - pantoprazole DR (PROTONIX) 40 mg tablet Take 1 tablet by mouth two times a day. - gabapentin (NEURONTIN) 300 mg capsule Take 1 capsule by mouth four times daily for 180 days. - atorvastatin (LIPITOR) 40 mg tablet Take 1 tablet by mouth daily at bedtime. For cholesterol. - LANTUS SOLOSTAR U-100 INSULIN 100 unit/mL (3 mL) Inject 18 Units subcutaneously daily at bedtime. Per [facility]. - insulin lispro (HUMALOG KWIKPEN) 100 unit/mL Inject 6 Units subcutaneously three times a day with meals. Plus sliding scale. Per [facility]. - amLODIPine (NORVASC) 5 mg tablet Take 1 tablet by mouth once daily. - amitriptyline (ELAVIL) 25 mg tablet Take 1 tablet by mouth daily at bedtime. - levothyroxine (SYNTHROID) 25 mcg tablet Take 1 tablet by mouth every morning. - sertraline (ZOLOFT) 50 mg tablet Take 1 tablet by mouth once daily. - lisinopril (ZESTRIL) 40 mg tablet Take 1 tablet by mouth once daily. - albuterol HFA (PROVENTIL HFA, VENTOLIN HFA) 90 mcg/actuation inhaler Inhale 2 Puffs as instructed every 4 hours as needed for wheezing/shortness of breath. - Insulin Dudley, Disposable, (BD ULTRAFINE III MINI PEN) 31 gauge x 3/16 USE WITH INSULIN PENS 4TIMES DAILY - flash glucose sensor (BatesHookSTYLE MAIKEL 2 SENSOR) kit Check 8 times per day Problem List As Of Date 03/23/2024 Noted Resolved Hypertension [I10] 11/23/2009 Abdominal pain, right lower quadrant [R10.31] 11/23/2009 01/25/2016 Abdominal pain, left lower quadrant [R10.32] 11/23/2009 01/25/2016 GERD (gastroesophageal reflux disease) [K21.9] 01/25/2016 Microalbuminuria [R80.9] 01/25/2016 History of diabetic gastroparesis [Z86.39] 01/25/2016 Diabetic polyneuropathy associated with type 1 *01/25/2016 Depression with anxiety [F41.8] 01/25/2016 Lactose intolerance [E73.9] 07/30/2016 02/14/2017 Charcot's joint of right foot [M14.671] 11/11/2016 Obesity [E66.9] 02/11/2017 04/05/2018 Hyperlipidemia [E78.5] 02/14/2017 Hep C w/o coma, chronic (HCC) [B18.2] 09/29/2018 10/30/2023 Moderate episode of recurrent major depressive *09/02/2018 09/29/2018 History of drug abuse in remission (HCC) [F19.1*09/29/2018 04/22/2023 IVDU (intravenous drug user) [F19.90] 05/27/2019 11/06/2021 Tobacco abuse [Z72.0] 05/27/2019 Nicotine use disorder, F17.2 [F17.200] 05/31/2019 02/05/2022 Sepsis (HCC) [A41.9] 06/09/2019 06/27/2021 Amputee, below knee, left (HCC) [Z89.512] 07/14/2019 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)*11/06/2021 Hypothyroidism [E03.9] 11/06/2021 PVD (peripheral vascular disease) (HCC) [I73.9] 01/10/2020 Moderate protein-calorie malnutrition (HCC) [E4*11/01/2021 11/12/2022 Non-healing wound of amputation stump (HCC) [T8*09/24/2022 01/23/2023 Skin ulcers (HCC) [L98.499] 09/24/2022 01/23/2023 Neurodermatitis [L28.0] 01/23/2023 Prescriptions ordered this encounter Disp Refills Start End PANTOPRAZOLE 40 MG TABLET,DELAYED RE* 60 t* 1 03/24/2024 Route: ORAL Sig: Take 1 tablet by mouth two times a day. Medications Discontinued During This Encounter Prescriptions - pantoprazole DR (PROTONIX) 40 mg tablet (Discontinued) Take 1 tablet by mouth once daily. Encounter Status:Closed by DI MCCARTY on 03/24/24 [facility] ----- TORI CANTOR ([id number]) 1975 M Date Time Provider Department 02/23/24 JAH MAS INTMWS During your visit today, we recorded the following information about you: Siobhan Farmer LPN 02/23/2024 4:16 PM Signed Shawan calling from [employer] to report pt has completed his health care assessment AND provider can review this at the provider's portal or can all client services at [phone]. PHILOMENA Duarte Victor H, MD 02/24/2024 1:19 PM Signed Request report. I do not do portal. Fan Rasmussen LPN 03/02/2024 10:18 AM Signed Office does not keep Health Care Assessment from Insurance company, it is the insurance company's recommendation not the PCP. Fan Rasmussen LPN Allergies As of Date: 02/23/2024 (No Known Allergies) Date Reviewed: 10/30/2023 Reviewed by: Lori Corbin OCCA - Fully Assessed Reason for Visit: Health Risk Assessment [Other] Prescriptions as of 03/02/2024 - LANTUS SOLOSTAR U-100 INSULIN 100 unit/mL (3 mL) Inject 18 Units subcutaneously daily at bedtime. Per [facility]. - insulin lispro (HUMALOG KWIKPEN) 100 unit/mL Inject 6 Units subcutaneously three times a day with meals. Plus sliding scale. Per [facility]. - gabapentin (NEURONTIN) 300 mg capsule Take 1 capsule by mouth four times daily for 180 days. - atorvastatin (LIPITOR) 40 mg tablet Take 1 tablet by mouth daily at bedtime. For cholesterol. - amLODIPine (NORVASC) 5 mg tablet Take 1 tablet by mouth once daily. - amitriptyline (ELAVIL) 25 mg tablet Take 1 tablet by mouth daily at bedtime. - levothyroxine (SYNTHROID) 25 mcg tablet Take 1 tablet by mouth every morning. - pantoprazole DR (PROTONIX) 40 mg tablet Take 1 tablet by mouth once daily. - sertraline (ZOLOFT) 50 mg tablet Take 1 tablet by mouth once daily. - lisinopril (ZESTRIL) 40 mg tablet Take 1 tablet by mouth once daily. - albuterol HFA (PROVENTIL HFA, VENTOLIN HFA) 90 mcg/actuation inhaler Inhale 2 Puffs as instructed every 4 hours as needed for wheezing/shortness of breath. - Insulin Dudley, Disposable, (BD ULTRAFINE III MINI PEN) 31 gauge x 3/16 USE WITH INSULIN PENS 4TIMES DAILY - flash glucose sensor (FREESTYLE MAIKEL 2 SENSOR) kit Check 8 times per day Problem List As Of Date 02/23/2024 Noted Resolved Hypertension [I10] 11/23/2009 Abdominal pain, right lower quadrant [R10.31] 11/23/2009 01/25/2016 Abdominal pain, left lower quadrant [R10.32] 11/23/2009 01/25/2016 GERD (gastroesophageal reflux disease) [K21.9] 01/25/2016 Microalbuminuria [R80.9] 01/25/2016 History of diabetic gastroparesis [Z86.39] 01/25/2016 Diabetic polyneuropathy associated with type 1 *01/25/2016 Depression with anxiety [F41.8] 01/25/2016 Lactose intolerance [E73.9] 07/30/2016 02/14/2017 Charcot's joint of right foot [M14.671] 11/11/2016 Obesity [E66.9] 02/11/2017 04/05/2018 Hyperlipidemia [E78.5] 02/14/2017 Hep C w/o coma, chronic (HCC) [B18.2] 09/29/2018 10/30/2023 Moderate episode of recurrent major depressive *09/02/2018 09/29/2018 History of drug abuse in remission (HCC) [F19.1*09/29/2018 04/22/2023 IVDU (intravenous drug user) [F19.90] 05/27/2019 11/06/2021 Tobacco abuse [Z72.0] 05/27/2019 Nicotine use disorder, F17.2 [F17.200] 05/31/2019 02/05/2022 Sepsis (HCC) [A41.9] 06/09/2019 06/27/2021 Amputee, below knee, left (HCC) [Z89.512] 07/14/2019 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)*11/06/2021 Hypothyroidism [E03.9] 11/06/2021 PVD (peripheral vascular disease) (HCC) [I73.9] 01/10/2020 Moderate protein-calorie malnutrition (HCC) [E4*11/01/2021 11/12/2022 Non-healing wound of amputation stump (HCC) [T8*09/24/2022 01/23/2023 Skin ulcers (HCC) [L98.499] 09/24/2022 01/23/2023 Neurodermatitis [L28.0] 01/23/2023 Encounter Status:Closed by FAN RASMUSSEN on 03/02/24 Normal [facility] ilon 02-10-2024 Albumin [Mass/Vol] 3.6 g/dL Normal 3.2-5.0 [facility] Comment on above: Performed By: #### L 9000.0810 #### [facility] [address] [place], [address] Albumin/Globulin [Mass ratio] 1.0 {ratio} Normal 0.9-2.4 [facility] Comment on above: Performed By: #### L 9000.0810 #### [facility] [address] [place], [address] ALK P 90 U/L Normal 45-117 [facility] Comment on above: Performed By: #### L 9000.0810 #### [facility] [address] [place], [address] ALT [Catalytic activity/Vol] 20 U/L Normal 16-61 [facility] Comment on above: Performed By: #### L 9000.0810 #### [facility] [address] [place], [address] AST [Catalytic activity/Vol] 19 U/L Normal 15-37 [facility] Comment on above: Performed By: #### L 9000.0810 #### [facility] [address] [place], [address] Bilirubin [Mass/Vol] 0.40 mg/dL Normal 0.20-1.00 [facility] Comment on above: Result Comment: For patients on eltrombopag therapy, use of Dimension Alpine TBIL is not recommended. Performed By: #### L 9000.0810 #### [facility] [address] [place], [address] BUN/CRE 25.3 RATIO High 10-20 [facility] Comment on above: Performed By: #### L 9000.0810 #### [facility] [address] [place], [address] CA,Total 9.4 mg/dL Normal 8.5-10.1 [facility] Comment on above: Performed By: #### L 9000.0810 #### [facility] [address] [place], [address] Chloride [Moles/Vol] 103 mmol/L Normal 98-107 [facility] Comment on above: Performed By: #### L 9000.0810 #### [facility] [address] [place], [address] CO2 [Moles/Vol] 30.0 mmol/L Normal 21.0-32.0 [facility] Comment on above: Performed By: #### L 9000.0810 #### [facility] [address] [place], [address] Creatinine [Mass/Vol] 0.75 mg/dL Normal 0.70-1.30 [facility] Comment on above: Result Comment: The validity of the calculated GFR GFRAA in patients over 70 years has not been determined. Clinical correlation is essential. Performed By: #### L 9000.0810 #### [facility] [address] [place], [address] EST GFR - AA 142 mL/min Normal >60 [facility] Comment on above: Result Comment: Afri can Cambodian GFR Calc Performed By: #### L 9000.0810 #### [facility] [address] [place], [address] GAP 5 Normal 5-15 [facility] Comment on above: Performed By: #### L 9000.0810 #### [facility] [address] [place], [address] GFR/1.73 sq M.predicted among non-blacks MDRD (S/P/Bld) [Vol rate/Area] 117 mL/min/{1.73_m2} Normal >60 [facility] Comment on above: Result Comment: Non- GFR Calc Performed By: #### L 9000.0810 #### [facility] [address] [place], [address] Globulin (S) [Mass/Vol] 3.7 g/dL Normal 2.2-4.2 [facility] Comment on above: Performed By: #### L 9000.0810 #### [facility] [address] [place], [address] Glucose [Mass/Vol] 317 mg/dL High 74-106 [facility] Comment on above: Result Comment: Gluc ose result greater than or equal to 200 mg/dL suggests DIABETES MELLITUS per A.D.A. criteria. Performed By: #### L 9000.0810 #### [facility] [address] [place], [address] Potassium [Moles/Vol] 5.1 mmol/L Normal 3.5-5.1 [facility] Comment on above: Performed By: #### L 9000.0810 #### [facility] [address] [place], [address] Sodium [Moles/Vol] 138 mmol/L Normal 136-145 [facility] Comment on above: Performed By: #### L 9000.0810 #### [facility] [address] [place], [address] T PROT 7.3 g/dL Normal 6.4-8.2 [facility] Comment on above: Performed By: #### L 9000.0810 #### [facility] [address] [place], [address] Urea nitrogen [Mass/Vol] 19 mg/dL High 7-18 [facility] Comment on above: Performed By: #### L 9000.0810 #### [facility] [address] [place], [address] Endocrinology Visit Reporton 02-10-2024 Endocrinology Visit Report [facility] [address] [place] [address] OFFICE VISIT Date of Service: 02/10/24 MR#: [id number] Acct: [id number] Name: TORI CANTOR Rep #: [id number] : 1975 Provider: ANDREW felix Age/Sex: 48/M [place] [facility] [place]: S[place] Intake Vital Signs 11/11/23 14:03 02/10/24 14:12 Height 5 ft 9 in 5 ft 9 in Weight: 177 lb 174 lb BMI 26.1 25.7 BP 121/80 H 147/95 H Blood Pressure Location Lt brachial Lt brachial Position Sitting Sitting Pulse 84 97 Pulse Source Monitor Monitor Pulse Oximetry (%) 98 95 Oxygen Delivery Method room air room air Intake Visit Reasons: 3 M FU Chief Complaint: f/u diabetes System Analyst Required: No Accompanied by: Self Is patient in pain?: Yes (BL legs ) Pain scale (1-10): 7 Allergies No Known Allergies Allergy (Verified 02/10/24 14:17) Medications ???Medication ???Instructions ???Recorded ???Confirmed ???Type gabapentin 300 mg capsule 300 mg PO 4X/DAY nerve pain 08/13/20 02/10/24 History pantoprazole 40 mg tablet,delayed 40 mg PO DAILY gerd 08/13/20 02/10/24 History release levothyroxine 25 mcg tablet 25 mcg PO DAILY thyroid 09/15/21 02/10/24 History sertraline 50 mg tablet (Zoloft) 50 mg PO DAILY 03/05/22 02/10/24 History amitriptyline 25 mg tablet 25 mg PO QHS 06/17/22 02/10/24 History amlodipine 5 mg tablet 5 mg PO DAILY 11/17/22 02/10/24 History insulin glargine 100 unit/mL (3 35 unit (0.35 mL) subcut QHS #31.5 09/23/23 02/10/24 Rx mL) subcutaneous pen (Lantus mL Solostar U-100 Insulin) flash glucose scanning reader #1 ea 10/08/23 02/10/24 Rx (FreeStyle Maikel 2 [place]) flash glucose sensor (FreeStyle #6 ea 11/05/23 02/10/24 Rx Maikel 2 Sensor kit) atorvastatin 40 mg tablet 40 mg PO QDAY 11/11/23 02/10/24 History lisinopril 40 mg tablet 40 mg PO QDAY 11/11/23 02/10/24 History insulin lispro 100 unit/mL 15 unit (0.15 mL) subcut TID #40.5 01/28/24 02/10/24 Rx subcutaneous pen (Humalog KwikPen mL (U-100) Insulin) blood-glucose sensor (Dexcom G6 #3 ea 02/10/24 02/10/24 Rx Sensor device) blood-glucose transmitter (Dexcom #1 ea 02/10/24 02/10/24 Rx G6 Transmitter device) insulin pump cart,automated,BT #10 ea 02/10/24 02/10/24 Rx (Omnipod 5 G6 Pods (Gen 5) subcutaneous cartridge) insulin pump cartridge,automated #1 ea 02/10/24 02/10/24 Rx dose,BT with controller subcutaneous (Omnipod 5 G6 Intro Kit (Gen 5) subcutaneous cartridge with controller) [facility] Medical History (Updated 02/10/24 @ 15:49 by Rebecca Hoffman NP-C) 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 Tobacco use disorder Polyneuropathy due to type 1 diabetes mellitus Wound discharge MRSA infection Marijuana use Open wound Thyroid disease Insulin dependent diabetes mellitus Arthritis Uses wheelchair Bladder disease Injury of back Difficulty chewing Dietary restriction Amputation of left lower extremity below knee Type 1 diabetes Current use of insulin Back pain due to injury Stroke Restless legs History of stress test Gastroparesis Vision loss of right eye Vision loss of left eye Hearing loss, left Hearing loss, right Anemia Substance abuse Alcohol abuse Anxiety Depression Hypothyroidism Diabetes Chronic pain Rheumatoid arthritis Osteoporosis Pancreatitis GERD (gastroesophageal reflux disease) Hepatitis Smoker Asthma Chest pain Hypertension Migraines Seizures Charcot foot due to diabetes mellitus Charcot ankle Neuropathy Cellulitis ( 09/15/21) Diabetes mellitus Surgical History History of bilateral cataract extraction H/O tooth extraction History of left below knee amputation Family History Other Cancer Diabetes Heart disease Social History Smoking Status: Current every day smoker tobacco type: cigarettes HPI HPI Chief Complaint: f/u diabetes Details: TORI CANTOR, is a 48 M who presents to the office today for evaluation and management of diabetes. A1C today is 10.7%, increased slightly from 11/11/23 at 10.5%. He has lost 3 lbs. At his last appt we discussed pursuing insulin pump therapy, he was instructed to get routine labs, and he was instructed and agreeable to going to the ED for chest pain. He did not go to ED, he lit a cigarette and went home. He did not get routine labs completed. Currently taking Lantus 18 u once daily and lispro 7 u TIDCM +SSI. He reports that he typically only eats one meal/day. Reports he corrects blood sugars with lispro when blood sugars are elevated; however, CGM tracin (more content not included)... Normal [facility] Lipid Profileon 02-10-2024 Cholesterol [Mass/Vol] 107 mg/dL Normal 200 [facility] Comment on above: Result Comment: <200 mg/dL Desirable 200-240 mg/dL Borderline >240 mg/dL High Risk Performed By: #### L 9000.0810 #### [facility] [address] [place], [address] Cholesterol in HDL [Mass/Vol] 60 mg/dL Normal [facility] Comment on above: Result Comment: The drugs N-Acetylcysteine and Metamizole may falsely depress this assay. Reference Range HDL <40 mg/dL Low HDL Cholesterol HDL >or= 60 mg/dL High HDL Cholesterol Performed By: #### L 9000.0810 #### [facility] [address] [place], [address] Cholesterol in LDL [Mass/Vol] 29 mg/dL Normal 0-130 [facility] Comment on above: Performed By: #### L 9000.0810 #### [facility] [address] [place], [address] Cholesterol in VLDL [Mass/Vol] 18 mg/dL Normal 5-40 [facility] Comment on above: Performed By: #### L 9000.0810 #### [facility] [address] [place], [address] Triglyceride [Mass/Vol] 90 mg/dL Normal [facility] Comment on above: Result Comment: The drugs N-Acetylcysteine and Metamizole may falsely depress this assay. Serum Triglycerides Reference Interval Normal <150 mg/dL Borderline high 150 - 199 mg/dL High 200 - 499 mg/dL Very High > or = 500 mg/dL Performed By: #### L 9000.0810 #### [facility] [address] [place], [address] Microalb:Creat Ratio,Random URon 02-10-2024 MALB:CRE Normal <30 mg/g CRE [facility] Comment on above: Result Comment: COUL D NOT GP Performed By: #### L 9000.0810 #### [facility] [address] [place], [address] MICROALBUMIN,UR Normal NO RANGE EST. [facility] Comment on above: Result Comment: COUL D NOT GP Performed By: #### L 9000.0810 #### [facility] [address] [place], [address] UR CREAT Normal NO RANGE EST. [facility] Comment on above: Result Comment: COUL D NOT GP Performed By: #### L 9000.0810 #### [facility] [address] [place], [address] T4 Free Directon 02-10-2024 T4 FREE DIRECT 1.35 ng/dL Normal 0.76-1.46 [facility] Comment on above: Performed By: #### L 500.4050 #### [facility] [address] [place], [address] Thyroid Stim Hormone (TSH)on 02-10-2024 TSH 1.32 uIU/mL Normal 0.358-3.74 [facility] Comment on above: Performed By: #### L 500.4050 #### [facility] [address] [place], [address] Vitamin D,25 Hydroxyon 02-09 Vitamin D 25-OH 29.1 ng/mL Normal [facility] Comment on above: Result Comment: Nimisha min D 25(OH) Status Range Deficiency <20 ng/mL (50nmol/L) Insufficiency 20 - 30 ng/mL (50 - 75 nmol/L) Sufficiency 30 - 100 ng/mL (75 - 250 nmol/L) Toxicity >100 ng/mL (>250 nmol/L) Performed By: #### L 9000.0810 #### [facility] [address] [place], [address] CNPNon 12-28-2023 [facility] Telephone ([place]) ----- TORI CANTOR ([id number]) 1975 M Date Time Provider Department 12/28/23 JAH MAS INTWS During your visit today, we recorded the following information about you: Zoe Castaneda LPN 12/28/2023 4:00 PM Signed Fax rec'd from [facility] for booster supplement. Called pt to see if still taking this. He says yes he uses this one twice a day. He has issues with eating (he doesn't have any teeth). Sometimes he has trouble keeping his blood sugars in range. The ibanez helps with this. Form back to pcp to review and complete when he returns next week. Zoe Castaneda LPN 01/06/2024 8:42 AM Signed This was completed and faxed back 01/05/24. Allergies As of Date: 12/28/2023 (No Known Allergies) Date Reviewed: 10/30/2023 Reviewed by: Lori Corbin OCCA - Fully Assessed Reason for Visit: DME form from [facility] for boost supplement [Other] Prescriptions as of 01/06/2024 - LANTUS SOLOSTAR U-100 INSULIN 100 unit/mL (3 mL) Inject 18 Units subcutaneously daily at bedtime. Per [facility]. - insulin lispro (HUMALOG KWIKPEN) 100 unit/mL Inject 6 Units subcutaneously three times a day with meals. Plus sliding scale. Per [facility]. - gabapentin (NEURONTIN) 300 mg capsule Take 1 capsule by mouth four times daily for 180 days. - atorvastatin (LIPITOR) 40 mg tablet Take 1 tablet by mouth daily at bedtime. For cholesterol. - amLODIPine (NORVASC) 5 mg tablet Take 1 tablet by mouth once daily. - amitriptyline (ELAVIL) 25 mg tablet Take 1 tablet by mouth daily at bedtime. - levothyroxine (SYNTHROID) 25 mcg tablet Take 1 tablet by mouth every morning. - pantoprazole DR (PROTONIX) 40 mg tablet Take 1 tablet by mouth once daily. - sertraline (ZOLOFT) 50 mg tablet Take 1 tablet by mouth once daily. - lisinopril (ZESTRIL) 40 mg tablet Take 1 tablet by mouth once daily. - albuterol HFA (PROVENTIL HFA, VENTOLIN HFA) 90 mcg/actuation inhaler Inhale 2 Puffs as instructed every 4 hours as needed for wheezing/shortness of breath. - Insulin Dudley, Disposable, (BD ULTRAFINE III MINI PEN) 31 gauge x 3/16 USE WITH INSULIN PENS 4TIMES DAILY - flash glucose sensor (FREESTYLE MAIKEL 2 SENSOR) kit Check 8 times per day Problem List As Of Date 12/28/2023 Noted Resolved Hypertension [I10] 11/23/2009 Abdominal pain, right lower quadrant [R10.31] 11/23/2009 01/25/2016 Abdominal pain, left lower quadrant [R10.32] 11/23/2009 01/25/2016 GERD (gastroesophageal reflux disease) [K21.9] 01/25/2016 Microalbuminuria [R80.9] 01/25/2016 History of diabetic gastroparesis [Z86.39] 01/25/2016 Diabetic polyneuropathy associated with type 1 *01/25/2016 Depression with anxiety [F41.8] 01/25/2016 Lactose intolerance [E73.9] 07/30/2016 02/14/2017 Charcot's joint of right foot [M14.671] 11/11/2016 Obesity [E66.9] 02/11/2017 04/05/2018 Hyperlipidemia [E78.5] 02/14/2017 Hep C w/o coma, chronic (HCC) [B18.2] 09/29/2018 10/30/2023 Moderate episode of recurrent major depressive *09/02/2018 09/29/2018 History of drug abuse in remission (HCC) [F19.1*09/29/2018 04/22/2023 IVDU (intravenous drug user) [F19.90] 05/27/2019 11/06/2021 Tobacco abuse [Z72.0] 05/27/2019 Nicotine use disorder, F17.2 [F17.200] 05/31/2019 02/05/2022 Sepsis (HCC) [A41.9] 06/09/2019 06/27/2021 Amputee, below knee, left (HCC) [Z89.512] 07/14/2019 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)*11/06/2021 Hypothyroidism [E03.9] 11/06/2021 PVD (peripheral vascular disease) (HCC) [I73.9] 01/10/2020 Moderate protein-calorie malnutrition (HCC) [E4*11/01/2021 11/12/2022 Non-healing wound of amputation stump (HCC) [T8*09/24/2022 01/23/2023 Skin ulcers (HCC) [L98.499] 09/24/2022 01/23/2023 Neurodermatitis [L28.0] 01/23/2023 Encounter Status:Closed by ZOE CASTANEDA on 01/06/24 Normal [facility] 12-25-2023 CNPN Telephone (INTMWS) ----- DEVAUGHNTORI ([id number]) 1975 M Date Time Provider Department 12/25/23 JAH MAS INTRosemarieWS During your visit today, we recorded the following information about you: Sivan Matos 12/25/2023 10:58 AM Signed Tori is calling Jah Mas MD today with concern regarding Forms/letter Jakob tena LOST last letter and needs a new one. If you can please call him when it is ready and he will chart picker next week. Patient has been identified by name and birthdate. Duration of symptoms: N/A Person calling: self Call patient at: at home [phone] (home) [phone] (cell) Was an appointment scheduled: No Closing statement: Results or non-symptom based questions: Thank you for calling [facility], your call will be returned within the next business day. Katia Youngblood MA 12/25/2023 11:19 AM Signed Letter printed, awaiting signature. Katia Willard MA 12/25/2023 2:37 PM Signed Patient notified and mailed to home address. Allergies As of Date: 12/25/2023 (No Known Allergies) Date Reviewed: 10/30/2023 Reviewed by: Lori Corbin OCCA - Fully Assessed Reason for Visit: Forms/letter [4448] Prescriptions as of 12/25/2023 - LANTUS SOLOSTAR U-100 INSULIN 100 unit/mL (3 mL) Inject 18 Units subcutaneously daily at bedtime. Per [facility]. - insulin lispro (HUMALOG KWIKPEN) 100 unit/mL Inject 6 Units subcutaneously three times a day with meals. Plus sliding scale. Per [facility]. - gabapentin (NEURONTIN) 300 mg capsule Take 1 capsule by mouth four times daily for 180 days. - atorvastatin (LIPITOR) 40 mg tablet Take 1 tablet by mouth daily at bedtime. For cholesterol. - amLODIPine (NORVASC) 5 mg tablet Take 1 tablet by mouth once daily. - amitriptyline (ELAVIL) 25 mg tablet Take 1 tablet by mouth daily at bedtime. - levothyroxine (SYNTHROID) 25 mcg tablet Take 1 tablet by mouth every morning. - pantoprazole DR (PROTONIX) 40 mg tablet Take 1 tablet by mouth once daily. - sertraline (ZOLOFT) 50 mg tablet Take 1 tablet by mouth once daily. - lisinopril (ZESTRIL) 40 mg tablet Take 1 tablet by mouth once daily. - albuterol HFA (PROVENTIL HFA, VENTOLIN HFA) 90 mcg/actuation inhaler Inhale 2 Puffs as instructed every 4 hours as needed for wheezing/shortness of breath. - Insulin [place], Disposable, (BD ULTRAFINE III MINI PEN) 31 gauge x 3/16 USE WITH INSULIN PENS 4TIMES DAILY - flash glucose sensor (FREESTYLE MAIKEL 2 SENSOR) kit Check 8 times per day Problem List As Of Date 12/25/2023 Noted Resolved Hypertension [I10] 11/23/2009 Abdominal pain, right lower quadrant [R10.31] 11/23/2009 01/25/2016 Abdominal pain, left lower quadrant [R10.32] 11/23/2009 01/25/2016 GERD (gastroesophageal reflux disease) [K21.9] 01/25/2016 Microalbuminuria [R80.9] 01/25/2016 History of diabetic gastroparesis [Z86.39] 01/25/2016 Diabetic polyneuropathy associated with type 1 *01/25/2016 Depression with anxiety [F41.8] 01/25/2016 Lactose intolerance [E73.9] 07/30/2016 02/14/2017 Charcot's joint of right foot [M14.671] 11/11/2016 Obesity [E66.9] 02/11/2017 04/05/2018 Hyperlipidemia [E78.5] 02/14/2017 Hep C w/o coma, chronic (HCC) [B18.2] 09/29/2018 10/30/2023 Moderate episode of recurrent major depressive *09/02/2018 09/29/2018 History of drug abuse in remission (HCC) [F19.1*09/29/2018 04/22/2023 IVDU (intravenous drug user) [F19.90] 05/27/2019 11/06/2021 Tobacco abuse [Z72.0] 05/27/2019 Nicotine use disorder, F17.2 [F17.200] 05/31/2019 02/05/2022 Sepsis (HCC) [A41.9] 06/09/2019 06/27/2021 Amputee, below knee, left (HCC) [Z89.512] 07/14/2019 Osteomyelitis of left tibia/BKA with MRSA ([facility])*11/06/2021 Hypothyroidism [E03.9] 11/06/2021 PVD (peripheral vascular disease) ([facility]) [I73.9] 01/10/2020 Moderate protein-calorie malnutrition (HCC) [E4*11/01/2021 11/12/2022 Non-healing wound of amputation stump ([facility]) [T8*09/24/2022 01/23/2023 Skin ulcers ([facility]) [L98.499] 09/24/2022 01/23/2023 Neurodermatitis [L28.0] 01/23/2023 Encounter Status:Closed by KATIA WILLARD on 12/25/23 Normal [facility] XR Chest PA and Lateralon IMPRESSION: No acute radiographic abnormality. Av Specialist: BEN Transcribe Date/Time: Jul 30 2023 3:01P Dictated by : ANTONY ESPAÑA MD This examination was interpreted and the report reviewed and electronically signed by: ANTONY ESPAÑA MD on Jul 30 2023 3:01PM [facility] DIVISION OF RADIOLOGY * * *Final Report* * * DATE OF EXAM: Jul 30 2023 2:49PM WOX 5291 - XR CHEST 2V FRONTAL/LAT / PROCEDURE REASON: multiple diagnoses * * * * Physician Interpretation * * * * EXAMINATION: CHEST RADIOGRAPH (2 VIEW FRONTAL & LATERAL) CLINICAL HISTORY: Acute cough Sinobronchitis MQ: XC2_6 EXAM DATE/TIME: 07/30/2023 2:49 PM COMPARISON: Chest radiograph 08/13/2022 RESULT: Lines, tubes, and devices: None. Lungs and pleura: No consolidation. No lung mass. No pleural effusion. No pneumothorax. Cardiomediastinal silhouette: Normal cardiomediastinal silhouette. Bones and soft tissues: Thoracic spondylosis. DIVISION OF RADIOLOGY Provider, Abida villar [place] - 07/30/2023 * * *Final Report* * * DATE OF EXAM: Jul 30 2023 2:49PM WOX 5291 - XR CHEST 2V FRONTAL/LAT / PROCEDURE REASON: multiple diagnoses * * * * Physician Interpretation * * * * EXAMINATION: CHEST RADIOGRAPH (2 VIEW FRONTAL & LATERAL) CLINICAL HISTORY: Acute cough Sinobronchitis MQ: XC2_6 EXAM DATE/TIME: 07/30/2023 2:49 PM COMPARISON: Chest radiograph 08/13/2022 RESULT: Lines, tubes, and devices: None. Lungs and pleura: No consolidation. No lung mass. No pleural effusion. No pneumothorax. Cardiomediastinal silhouette: Normal cardiomediastinal silhouette. Bones and soft tissues: Thoracic spondylosis. IMPRESSION IMPRESSION: No acute radiographic abnormality. Av Specialist: PSCB Transcribe Date/Time: Jul 30 2023 3:01P Dictated by : ANTONY ESPAÑA MD This examination was interpreted and the report reviewed and electronically signed by: ANTONY ESPAÑA MD on Jul 30 2023 3:01PM EST [facility] Radiology Study observation (narrative) [facility] XR Chest PA and LateralOrder ed By: Ccf Provider on 07-30-2023 [facility] Basophil percentageOrdered B y: Destinee Galvan on 11-03-2022 Basophil percentage TNP [facility] Comment on above: Test not performed Bilirubin [Mass/Vol] 0.30 mg/dL 0.20-1.00 [facility] Comment on above: For patients on eltr ombopag therapy, use of Dimension Alpine TBIL is not recommended. LDH [Catalytic activity/Vol] 218 U/L 87-241 [facility] Protein [Mass/Vol] 7.3 g/dL 6.4-8.2 [facility] Direct bilirubinOrdered By: Destinee Galvan on 11-03-2022 Bilirubin.direct [Mass/Vol] 0.10 mg/dL 0.00-0.30 [facility] Erythrocyte sedimentation ra teOrdered By: Destinee Galvan on 11-03-2022 ESR (Bld) [Velocity] 17 mm/h 0-20 [facility] INR in Blood by Coagulation assayOrdered By: Destinee Galvan on 11-03-2022 INR Coag (Bld) [Relative time] 1.0 {INR} [facility] - Chemistry and C hemistry - challengeOrdered By: Destinee Galvan on 11-03-2022 ALP [Catalytic activity/Vol] 89 U/L 45-117 [facility] ALT [Catalytic activity/Vol] 13 U/L 16-61 [facility] Globulin (S) [Mass/Vol] 3.7 g/dL 2.2-4.2 [facility] - CoagulationOrde red By: Destinee Galvan on 11-03-2022 PT Coag (PPP) [Time] 13.0 s 11.7-14.9 [facility] No Panel InformationOrdered By: Destinee Galvan on 11-03-2022 Addendum Document Comment . [facility] Comment on above: The quantitative ran ge of this assay is 15 IU/mL to 100million IU/mL.Performed at: [facility] [id number] Director: Anne Ambrocio MD, Phone: [phone] Serum or plasma C reactive p rotein measurement (mass/volume)Ordered By: Destinee Galvan on 11-03-2022 CRP [Mass/Vol] mg/L 0.0-3.0 [facility] Comment on above: C-Reactive Protein ( CRP) provides useful information for thediagnosis, therapy and monitoring of inflammatory processesand associated diseases. For the evaluation of Relative Riskfor Cardiovascular Disease, a High Sensitivity CRP (HSCRP)should be ordered. Serum or plasma albumin fam urement (mass/volume)Ordered By: Destinee Galvan on 11-03-2022 Albumin [Mass/Vol] 3.6 g/dL 3.2-5.0 [facility] Serum or plasma ferritin sarah surement (mass/volume)Ordered By: Destinee Galvan on 11-03-2022 Ferritin [Mass/Vol] 22 ng/mL 26-388 [facility] Serum or plasma hepatitis C virus RNA measurement by probe and target amplification mOrdered By: Destinee Galvan on 11-03-2022 HCV RNA LEONORA+probe Qn Not detected . [facility] Thin prep Papanicolaou smear with manual screeningOrdered By: Destinee Galvan on 11-03-2022 Thin prep Papanicolaou smear with manual screening 9 U/L 15-37 [facility] XR CHEST 2V FRONTAL/LATon [facility] XR Chest PA and Lateralon IMPRESSION: No acute radiographic abnormality. Av Specialist: PSCB Transcribe Date/Time: Aug 13 2022 3:24P Dictated by : NIDA ARAIZA MD This examination was interpreted and the report reviewed and electronically signed by: NIDA ARAIZA MD on Aug 13 2022 3:25PM [facility] DIVISION OF RADIOLOGY * * *Final Report* * * DATE OF EXAM: Aug 13 2022 3:19PM WOX 5291 - XR CHEST 2V FRONTAL/LAT / PROCEDURE REASON: multiple diagnoses * * * * Physician Interpretation * * * * EXAMINATION: CHEST RADIOGRAPH (2 VIEW FRONTAL & LATERAL) CLINICAL HISTORY: Acute cough Wheezing MQ: XC2_6 EXAM DATE/TIME: 08/13/2022 3:19 PM COMPARISON: Chest x-ray dated April 16, 2012 RESULT: Lines, tubes, and devices: None. Lungs and pleura: No consolidation. No lung mass. No pleural effusion. No pneumothorax. Cardiomediastinal silhouette: Normal cardiomediastinal silhouette. Bones and soft tissues: Exaggeration of the normal thoracic kyphosis. Multilevel degenerative changes. Mild anterior wedging of a lower thoracic vertebral body. Bone island in the proximal left humerus. DIVISION OF RADIOLOGY Provider, [facility] Ej Mahmood - 08/13/2022 * * *Final Report* * * DATE OF EXAM: Aug 13 2022 3:19PM WOX 5291 - XR CHEST 2V FRONTAL/LAT / PROCEDURE REASON: multiple diagnoses * * * * Physician Interpretation * * * * EXAMINATION: CHEST RADIOGRAPH (2 VIEW FRONTAL & LATERAL) CLINICAL HISTORY: Acute cough Wheezing MQ: XC2_6 EXAM DATE/TIME: 08/13/2022 3:19 PM COMPARISON: Chest x-ray dated April 16, 2012 RESULT: Lines, tubes, and devices: None. Lungs and pleura: No consolidation. No lung mass. No pleural effusion. No pneumothorax. Cardiomediastinal silhouette: Normal cardiomediastinal silhouette. Bones and soft tissues: Exaggeration of the normal thoracic kyphosis. Multilevel degenerative changes. Mild anterior wedging of a lower thoracic vertebral body. Bone island in the proximal left humerus. IMPRESSION IMPRESSION: No acute radiographic abnormality. Av Specialist: PSCB Transcribe Date/Time: Aug 13 2022 3:24P Dictated by : NIDA ARAIZA MD This examination was interpreted and the report reviewed and electronically signed by: NIDA ARAIZA MD on Aug 13 2022 3:25PM EST [facility] Radiology Study observation (narrative) [facility] XR Chest PA and LateralOrder ed By: Ccf Provider on 08-13-2022 [facility] Glucose Glucometer (BldC) [M ass/Vol]on 06-19-2022 Glucose [Mass/Vol] 200 mg/dL 74-106 [facility] Work Phone: Comment on above: MANAGEMENT OF PATIEN T CARE PER NURSING PROTOCOL Absolute lymphocyte counton 06-02-2022 Lymphocytes Auto (Unsp spec) [#/Vol] 2.64 10*3/uL 0.83-4.51 [facility] Work Phone: Basophil percentageon 2021 Ammonia (P) [Moles/Vol] 14.0 umol/L 11-32 [facility] Work Phone: Basophil percentage < 0.2 AI 0.0-0.9 [facility] Work Phone: Basophils/100 WBC (Bld) 1.1 % 0-1 [facility] Work Phone: Bilirubin [Mass/Vol] 0.40 mg/dL 0.20-1.00 [facility] Work Phone: Comment on above: For patients on eltr ombopag therapy, use of Dimension Alpine TBIL is not recommended. Chloride [Moles/Vol] 92 mmol/L 98-107 [facility] Work Phone: Eosinophils/100 WBC (Bld) 4.3 % 0-5 [facility] Work Phone: Glucose [Mass/Vol] 246 mg/dL 74-106 [facility] Work Phone: Comment on above: Glucose result great er than or equal to 200 mg/dLsuggests DIABETES MELLITUS per A.D.A. criteria. Neutrophils (Bld) [#/Vol] 6.4 10*3/uL 2.0-7.7 [facility] Work Phone: Neutrophils/100 WBC (Bld) 61.7 % 47-70 [facility] Work Phone: Potassium [Moles/Vol] 4.9 mmol/L 3.5-5.1 [facility] Work Phone: Protein [Mass/Vol] 7.7 g/dL 6.4-8.2 [facility] Work Phone: Sodium [Moles/Vol] 129 mmol/L 136-145 [facility] Work Phone: WBC (Bld) [#/Vol] 10.4 10*3/uL 4.4-11.0 [facility] Work Phone: Blood erythrocytes count (nu mber/volume)on 06-02-2022 RBC (Bld) [#/Vol] 4.84 10*6/uL 4.6-6.2 [facility] Work Phone: Blood hemoglobin measurement (mass/volume)on 06-02-2022 Hemoglobin (Bld) [Mass/Vol] 14.4 g/dL 13.0-16.5 [facility] Work Phone: Blood lymphocytes/100 leukoc yteson 06-02-2022 Lymphocytes/100 WBC (Bld) 25.5 % 19-41 [facility] Work Phone: Blood monocytes/100 leukocyt eson 06-02-2022 Monocytes/100 WBC (Bld) 7.1 % 0-10 [facility] Work Phone: [phone] Blood platelet mean volumeon 06-02-2022 Platelet mean volume (Bld) [Entitic vol] 11.9 fL 6.2-12.0 [facility] Work Phone: Determination of erythrocyte mean corpuscular volume (MCV)on 06-02-2022 MCV (RBC) [Entitic vol] 89.3 fL 80-94 [facility] Work Phone: Erythrocyte sedimentation ra santo 06-02-2022 ESR (Bld) [Velocity] 29 mm/h 0-20 [facility] Work Phone: HIV 1 and HIV-2 antibody ass ay with HIV-1 p24 antigen detectionon 06-02-2022 HIV 1+2 Ab+HIV1 p24 Ag IA Ql Non-Reactive Nonreactive [facility] Work Phone: Hematocrit Auto (Bld) [Volum e fraction]on 06-02-2022 Hematocrit (Bld) [Volume fraction] 43.2 % 40-54 [facility] Work Phone: INR in Blood by Coagulation assayon 06-02-2022 INR Coag (Bld) [Relative time] 1.0 {INR} [facility] Work Phone: Laboratory - Chemistry and C hemistry - challengeon 06-02-2022 ALP [Catalytic activity/Vol] 94 U/L 45-117 [facility] Work Phone: ALT [Catalytic activity/Vol] 35 U/L 16-61 [facility] Work Phone: CO2 [Moles/Vol] 32.0 mmol/L 21.0-32.0 [facility] Work Phone: Globulin (S) [Mass/Vol] 3.9 g/dL 2.2-4.2 [facility] Work Phone: Urea nitrogen/Creatinine [Mass ratio] 28.0 mg/mg 10-20 [facility] Work Phone: Laboratory - Coagulationon 1 08-02-2021 PT Coag (PPP) [Time] 12.5 s 11.7-14.9 [facility] Work Phone: Laboratory - Hematology and Cell countson 06-02-2022 Erythrocyte distribution width (RBC) [Entitic vol] 42.2 fL 35.1-43.9 [facility] Work Phone: Erythrocyte distribution width (RBC) [Ratio] 13.0 % 11.6-14.6 [facility] Work Phone: Immature granulocytes/100 WBC (Bld) 0.300 % 0.0-0.9 [facility] Work Phone: Comment on above: IG% - Immature Granu locytes (promyelocytes, myelocytes and metamyelocytes) > 1% indicates that a LEFT SHIFT is Present. MCH (RBC) [Entitic mass] 29.8 pg 27.0-32.0 [facility] Work Phone: Nucleated RBC/100 WBC (Bld) [Ratio] 0 % 0-5 [facility] Work Phone: MCHC Auto (RBC) [Mass/Vol]on 06-02-2022 MCHC (RBC) [Mass/Vol] 33.3 g/dL 32-36 [facility] Work Phone: No Panel Informationon 06-02 Centromere B Antibody <0.2 AI 0.0-0.9 [facility] Work Phone: Estimated GFR (MDRD) Amer 151 mL/min >60 [facility] Work Phone: Comment on above: GFR Calc Estimated GFR (MDRD) Non-Af Amer 125 mL/min >60 [facility] Work Phone: Comment on above: Non- GFR Calc [employer] Antibody <0.2 AI 0.0-0.9 [facility] Work Phone: Platelets bldon 06-02-2022 Platelets (Bld) [#/Vol] 222 10*3/uL 150-450 [facility] Work Phone: Serum DNA double strand anti body assay (units/volume)on 06-02-2022 DNA double strand Ab Qn (S) [IU]/mL 0-9 [facility] Work Phone: Comment on above: Negative <5 Equivoca l 5 - 9 Positive >9 Serum Cely-1 antibody assay (u nits/volume)on 06-02-2022 Cely-1 extractable nuclear Ab Qn (S) <0.2 AI 0.0-0.9 [facility] Work Phone: Serum Scl-70 extractable nuc lear antibody assay (units/volume)on 06-02-2022 SCL-70 extractable nuclear Ab Qn (S) <0.2 AI 0.0-0.9 [facility] Work Phone: Serum Kang extractable nucl ear antibody detectionon 06-02-2022 Kang extractable nuclear Ab Ql (S) <0.2 AI 0.0-0.9 [facility] Work Phone: Serum mitochondria antibody detectionon 06-02-2022 Mitochondria Ab Ql (S) <20.0 Units 0.0-20.0 [facility] Work Phone: Comment on above: Negative 0.0 - 20.0 Equivocal 20.1 - 24.9 Positive >24.9Mitochondrial (M2) Antibodies are found in 90-96% ofpatients with primary biliary cirrhosis.Performed at: [address] [id number] Director: Terence Cornejo PhD, Phone: [phone] Serum or plasma C reactive p rotein measurement (mass/volume)on 06-02-2022 CRP [Mass/Vol] mg/L 0.0-3.0 [facility] Work Phone: Comment on above: C-Reactive Protein ( CRP) provides useful information for thediagnosis, therapy and monitoring of inflammatory processesand associated diseases. For the evaluation of Relative Riskfor Cardiovascular Disease, a High Sensitivity CRP (HSCRP)should be ordered. Serum or plasma albumin fam urement (mass/volume)on 06-02-2022 Albumin [Mass/Vol] 3.8 g/dL 3.2-5.0 [facility] Work Phone: Serum or plasma albumin/glob ulin mass ratioon 06-02-2022 Albumin/Globulin [Mass ratio] 1.0 {ratio} 0.9-2.4 [facility] Work Phone: Serum or plasma calcium fam urement (mass/volume)on 06-02-2022 Calcium [Mass/Vol] 9.4 mg/dL 8.5-10.1 [facility] Work Phone: Serum or plasma creatinine m easurement (mass/volume)on 06-02-2022 Creatinine [Mass/Vol] 0.71 mg/dL 0.70-1.30 [facility] Work Phone: Comment on above: The validity of the calculated GFR & GFRAA in patients over 70 years has not been determined. Clinical correlation is essential. Serum or plasma ferritin sarah surement (mass/volume)on 06-02-2022 Ferritin [Mass/Vol] 23 ng/mL 26-388 [facility] Work Phone: Serum or plasma urea nitroge n measurement (mass/volume)on 06-02-2022 Urea nitrogen [Mass/Vol] 20 mg/dL 7-18 [facility] Work Phone: Thin prep Papanicolaou smear with manual screeningon 06-02-2022 Thin prep Papanicolaou smear with manual screening 21 U/L 15-37 [facility] Work Phone: Thin prep Papanicolaou smear with manual screening 5 5-15 [facility] Work Phone: Thin prep Papanicolaou smear with manual screening 190 U/L 87-241 [facility] Work Phone: Whole blood hemoglobin A1c/t otal hemoglobin ratio (mass fraction)on 06-02-2022 HbA1c (Bld) [Mass fraction] 11.0 % 3.8-5.6 [facility] Work Phone: Comment on above: Normal < 5.7 % Predi abetic 5.7 - 6.4 % Diabetic >or= 6.5 % Please note range changes. Absolute lymphocyte counton 04-29-2022 Lymphocytes Auto (Unsp spec) [#/Vol] 2.48 10*3/uL 0.83-4.51 [facility] Work Phone: Basophil percentageon 2021 Ammonia (P) [Moles/Vol] 14.0 umol/L 11-32 [facility] Work Phone: Basophil percentage 2.732 . [facility] Work Phone: Comment on above: Result Units: log10 IU/mL Basophils/100 WBC (Bld) 1.5 % 0-1 [facility] Work Phone: Bilirubin [Mass/Vol] 0.30 mg/dL 0.20-1.00 [facility] Work Phone: Comment on above: For patients on eltr ombopag therapy, use of Dimension Alpine TBIL is not recommended. Chloride [Moles/Vol] 101 mmol/L 98-107 [facility] Work Phone: Eosinophils/100 WBC (Bld) 7.4 % 0-5 [facility] Work Phone: Glucose [Mass/Vol] 292 mg/dL 74-106 [facility] Work Phone: [phone] Comment on above: Glucose result great er than or equal to 200 mg/dLsuggests DIABETES MELLITUS per A.D.A. criteria. Neutrophils (Bld) [#/Vol] 4.8 10*3/uL 2.0-7.7 [facility] Work Phone: Neutrophils/100 WBC (Bld) 54.5 % 47-70 [facility] Work Phone: Potassium [Moles/Vol] 4.8 mmol/L 3.5-5.1 [facility] Work Phone: Protein [Mass/Vol] 7.5 g/dL 6.4-8.2 [facility] Work Phone: Sodium [Moles/Vol] 135 mmol/L 136-145 [facility] Work Phone: WBC (Bld) [#/Vol] 8.8 10*3/uL 4.4-11.0 [facility] Work Phone: Blood erythrocytes count (nu mber/volume)on 04-29-2022 RBC (Bld) [#/Vol] 4.85 10*6/uL 4.6-6.2 [facility] Work Phone: Blood hemoglobin measurement (mass/volume)on 04-29-2022 Hemoglobin (Bld) [Mass/Vol] 14.5 g/dL 13.0-16.5 [facility] Work Phone: Blood lymphocytes/100 leukoc yteson 04-29-2022 Lymphocytes/100 WBC (Bld) 28.2 % 19-41 [facility] Work Phone: Blood monocytes/100 leukocyt eson 04-29-2022 Monocytes/100 WBC (Bld) 8.3 % 0-10 [facility] Work Phone: Blood platelet mean volumeon 04-29-2022 Platelet mean volume (Bld) [Entitic vol] 11.5 fL 6.2-12.0 [facility] Work Phone: Determination of erythrocyte mean corpuscular volume (MCV)on 04-29-2022 MCV (RBC) [Entitic vol] 89.3 fL 80-94 [facility] Work Phone: Erythrocyte sedimentation ra santo 04-29-2022 ESR (Bld) [Velocity] 15 mm/h 0-20 [facility] Work Phone: Hematocrit Auto (Bld) [Volum e fraction]on 04-29-2022 Hematocrit (Bld) [Volume fraction] 43.3 % 40-54 [facility] Work Phone: INR in Blood by Coagulation assayon 04-29-2022 INR Coag (Bld) [Relative time] 0.9 {INR} [facility] Work Phone: Laboratory - Chemistry and C hemistry - challengeon 04-29-2022 ALP [Catalytic activity/Vol] 89 U/L 45-117 [facility] Work Phone: ALT [Catalytic activity/Vol] 16 U/L 16-61 [facility] Work Phone: CO2 [Moles/Vol] 31.0 mmol/L 21.0-32.0 [facility] Work Phone: Globulin (S) [Mass/Vol] 4.0 g/dL 2.2-4.2 [facility] Work Phone: Urea nitrogen/Creatinine [Mass ratio] 20.6 mg/mg 10-20 [facility] Work Phone: Laboratory - Coagulationon PT Coag (PPP) [Time] 12.2 s 11.7-14.9 [facility] Work Phone: Laboratory - Hematology and Cell countson 04-29-2022 Erythrocyte distribution width (RBC) [Entitic vol] 42.8 fL 35.1-43.9 [facility] Work Phone: Erythrocyte distribution width (RBC) [Ratio] 12.9 % 11.6-14.6 [facility] Work Phone: Immature granulocytes/100 WBC (Bld) 0.100 % 0.0-0.9 [facility] Work Phone: Comment on above: IG% - Immature Granu locytes (promyelocytes, myelocytes and metamyelocytes) > 1% indicates that a LEFT SHIFT is Present. MCH (RBC) [Entitic mass] 29.9 pg 27.0-32.0 [facility] Work Phone: Nucleated RBC/100 WBC (Bld) [Ratio] 0 % 0-5 [facility] Work Phone: MCHC Auto (RBC) [Mass/Vol]on 04-29-2022 MCHC (RBC) [Mass/Vol] 33.5 g/dL 32-36 [facility] Work Phone: No Panel Informationon 04-29 Addendum Document Comment . [facility] Work Phone: Comment on above: The quantitative ran ge of this assay is 15 IU/mL to 100million IU/mL. Estimated GFR (MDRD) Amer 161 mL/min >60 [facility] Work Phone: Comment on above: GFR Calc Estimated GFR (MDRD) Non-Af Amer 133 mL/min >60 [facility] Work Phone: Comment on above: Non- GFR Calc Platelets bldon 04-29-2022 Platelets (Bld) [#/Vol] 201 10*3/uL 150-450 [facility] Work Phone: Serum hepatitis B virus surf morgan antibody IgG detectionon 04-29-2022 HBV surface IgG Ql (S) Non-Reactive [facility] Work Phone: Comment on above: Non Reactive: Incons istent with immunity less than <10 mIU/mL Reactive: Consistent with immunity greater than or equal to 10 mIU/mL Serum or plasma C reactive p rotein measurement (mass/volume)on 04-29-2022 CRP [Mass/Vol] mg/L 0.0-3.0 [facility] Work Phone: Comment on above: C-Reactive Protein ( CRP) provides useful information for thediagnosis, therapy and monitoring of inflammatory processesand associated diseases. For the evaluation of Relative Riskfor Cardiovascular Disease, a High Sensitivity CRP (HSCRP)should be ordered. Serum or plasma albumin fam urement (mass/volume)on 04-29-2022 Albumin [Mass/Vol] 3.5 g/dL 3.2-5.0 [facility] Work Phone: Serum or plasma albumin/glob ulin mass ratioon 04-29-2022 Albumin/Globulin [Mass ratio] 0.9 {ratio} 0.9-2.4 [facility] Work Phone: Serum or plasma [id number] protein tumor marker measurement (units/volume)on 04-29-2022 AFP.tumor marker Qn 1.4 ng/mL 0.0-6.9 [facility] Work Phone: Comment on above: [employer] [employer] El ectrochemiluminescence Immunoassay(ECLIA)Values obtained with different assay methods or kits cannotbe used interchangeably. Results cannot be interpreted asabsolute evidence of the presence or absence of malignantdisease.This test is not interpretable in females.Performed at: - [facility] [id number] Director: Anne Ambrocio MD, Phone: [phone] at: - [facility] [id number] Director: Terence Cornejo PhD, Phone: [phone] Serum or plasma calcium fam urement (mass/volume)on 04-29-2022 Calcium [Mass/Vol] 9.2 mg/dL 8.5-10.1 [facility] Work Phone: Serum or plasma creatinine m easurement (mass/volume)on 04-29-2022 Creatinine [Mass/Vol] 0.68 mg/dL 0.70-1.30 [facility] Work Phone: Comment on above: The validity of the calculated GFR & GFRAA in patients over 70 years has not been determined. Clinical correlation is essential. Serum or plasma hepatitis C virus RNA measurement by probe and target amplification mon 04-29-2022 HCV RNA LEONORA+probe Qn 540 IU/mL . [facility] Work Phone: Serum or plasma urea nitroge n measurement (mass/volume)on 04-29-2022 Urea nitrogen [Mass/Vol] 14 mg/dL 7-18 [facility] Work Phone: Thin prep Papanicolaou smear with manual screeningon 04-29-2022 Thin prep Papanicolaou smear with manual screening 14 U/L 15-37 [facility] Work Phone: Thin prep Papanicolaou smear with manual screening 3 5-15 [facility] Work Phone: Thin prep Papanicolaou smear with manual screening 183 U/L 87-241 [facility] Work Phone: XR FOOT GENERAL 3V AP/LAT/OB L RIGHTon 02-24-2022 [facility] Absolute lymphocyte counton 12-11-2021 Lymphocytes Auto (Unsp spec) [#/Vol] 2.76 10*3/uL 0.83-4.51 [facility] Work Phone: Basophil percentageon 2021 Basophils/100 WBC (Bld) 1.1 % 0-1 [facility] Work Phone: Bilirubin [Mass/Vol] 0.50 mg/dL 0.20-1.00 [facility] Work Phone: Comment on above: For patients on eltr ombopag therapy, use of Dimension Alpine TBIL is not recommended. Chloride [Moles/Vol] 101 mmol/L 98-107 [facility] Work Phone: Eosinophils/100 WBC (Bld) 3.0 % 0-5 [facility] Work Phone: Glucose [Mass/Vol] 187 mg/dL 74-106 [facility] Work Phone: Comment on above: Fasting Glucose resu lt greater than or equal to 126 mg/dL suggests DIABETES MELLITUS per A.D.A. criteria. Neutrophils (Bld) [#/Vol] 7.0 10*3/uL 2.0-7.7 [facility] Work Phone: Neutrophils/100 WBC (Bld) 63.0 % 47-70 [facility] Work Phone: Potassium [Moles/Vol] 4.8 mmol/L 3.5-5.1 [facility] Work Phone: Protein [Mass/Vol] 8.5 g/dL 6.4-8.2 [facility] Work Phone: Sodium [Moles/Vol] 136 mmol/L 136-145 [facility] Work Phone: [phone] WBC (Bld) [#/Vol] 11.2 10*3/uL 4.4-11.0 [facility] Work Phone: Blood erythrocytes count (nu mber/volume)on 12-11-2021 RBC (Bld) [#/Vol] 5.50 10*6/uL 4.6-6.2 [facility] Work Phone: Blood hemoglobin measurement (mass/volume)on 12-11-2021 Hemoglobin (Bld) [Mass/Vol] 16.2 g/dL 13.0-16.5 [facility] Work Phone: Blood lymphocytes/100 leukoc yteson 12-11-2021 Lymphocytes/100 WBC (Bld) 24.7 % 19-41 [facility] Work Phone: Blood monocytes/100 leukocyt eson 12-11-2021 Monocytes/100 WBC (Bld) 7.9 % 0-10 [facility] Work Phone: Blood platelet mean volumeon 12-11-2021 Platelet mean volume (Bld) [Entitic vol] 11.2 fL 6.2-12.0 [facility] Work Phone: Determination of erythrocyte mean corpuscular volume (MCV)on 12-11-2021 MCV (RBC) [Entitic vol] 87.3 fL 80-94 [facility] Work Phone: Glucose Glucometer (BldC) [M ass/Vol]on 12-11-2021 Glucose [Mass/Vol] 176 mg/dL 74-106 [facility] Work Phone: Comment on above: MANAGEMENT OF PATIEN T CARE PER NURSING PROTOCOL Hematocrit Auto (Bld) [Volum e fraction]on 12-11-2021 Hematocrit (Bld) [Volume fraction] 48.0 % 40-54 [facility] Work Phone: Laboratory - Chemistry and C hemistry - challengeon 12-11-2021 ALP [Catalytic activity/Vol] 100 U/L 45-117 [facility] Work Phone: ALT [Catalytic activity/Vol] 63 U/L 16-61 [facility] Work Phone: CO2 [Moles/Vol] 28.0 mmol/L 21.0-32.0 [facility] Work Phone: Globulin (S) [Mass/Vol] 4.5 g/dL 2.2-4.2 [facility] Work Phone: Lipase [Catalytic activity/Vol] 476 U/L 73-393 [facility] Work Phone: Urea nitrogen/Creatinine [Mass ratio] 15.1 mg/mg 10-20 [facility] Work Phone: Laboratory - Hematology and Cell countson 12-11-2021 Erythrocyte distribution width (RBC) [Entitic vol] 42.8 fL 35.1-43.9 [facility] Work Phone: Erythrocyte distribution width (RBC) [Ratio] 13.3 % 11.6-14.6 [facility] Work Phone: Immature granulocytes/100 WBC (Bld) 0.300 % 0.0-0.9 [facility] Work Phone: Comment on above: IG% - Immature Granu locytes (promyelocytes, myelocytes and metamyelocytes) > 1% indicates that a LEFT SHIFT is Present. MCH (RBC) [Entitic mass] 29.5 pg 27.0-32.0 [facility] Work Phone: Nucleated RBC/100 WBC (Bld) [Ratio] 0 % 0-5 [facility] Work Phone: MCHC Auto (RBC) [Mass/Vol]on 12-11-2021 MCHC (RBC) [Mass/Vol] 33.8 g/dL 32-36 [facility] Work Phone: No Panel Informationon 12-11 D-Dimer Quantitative (PE/DVT) 2.30 FEU/ug/m 0.27-0.49 [facility] Work Phone: Comment on above: D-Dimer ELEVATED (>0 .49): Additional studies and clinicalassessments are indicated to conclude diagnosis of:Deep Vein Thrombosis (DVT) or Pulmonary Embolism (PE)CRITICAL VALUE VERIFIED. CALLED TO NAMITA [id number]/[id number] Mo Pacheco.RESULTS READ BACK BY SAME . Estimated Creatinine Clearance Calc 114.15 ml/min [facility] Work Phone: Estimated GFR (MDRD) Amer 134 mL/min >60 [facility] Work Phone: Comment on above: GFR Calc Estimated GFR (MDRD) Non-Af Amer 111 mL/min >60 [facility] Work Phone: Comment on above: Non- GFR Calc Troponin I High Sensitivity < 3 pg/mL 3.0-78.0 [facility] Work Phone: Comment on above: Please Note: New Escobar t Units and Gender Specific Reference Ranges. For more information see Policy Stat Procedure Alpine High Sensitivity Troponin (TNIH) and attachments. Platelets bldon 12-11-2021 Platelets (Bld) [#/Vol] 258 10*3/uL 150-450 [facility] Work Phone: Serum or plasma albumin fam urement (mass/volume)on 12-11-2021 Albumin [Mass/Vol] 4.0 g/dL 3.2-5.0 [facility] Work Phone: Serum or plasma albumin/glob ulin mass ratioon 12-11-2021 Albumin/Globulin [Mass ratio] 0.9 {ratio} 0.9-2.4 [facility] Work Phone: Serum or plasma calcium fam urement (mass/volume)on 12-11-2021 Calcium [Mass/Vol] 9.8 mg/dL 8.5-10.1 [facility] Work Phone: Serum or plasma creatinine m easurement (mass/volume)on 12-11-2021 Creatinine [Mass/Vol] 0.80 mg/dL 0.70-1.30 [facility] Work Phone: Comment on above: The validity of the calculated GFR & GFRAA in patients over 70 years has not been determined. Clinical correlation is essential. Serum or plasma urea nitroge n measurement (mass/volume)on 12-11-2021 Urea nitrogen [Mass/Vol] 12 mg/dL 7-18 [facility] Work Phone: Thin prep Papanicolaou smear with manual screeningon 12-11-2021 Thin prep Papanicolaou smear with manual screening 28 U/L 15-37 [facility] Work Phone: Thin prep Papanicolaou smear with manual screening 7 5-15 [facility] Work Phone: Basophil percentageon 2021 Bilirubin [Mass/Vol] 0.20 mg/dL 0.20-1.00 [facility] Work Phone: Comment on above: For patients on eltr ombopag therapy, use of Dimension Alpine TBIL is not recommended. Chloride [Moles/Vol] 103 mmol/L 98-107 [facility] Work Phone: Glucose [Mass/Vol] 345 mg/dL 74-106 [facility] Work Phone: Comment on above: Glucose result great er than or equal to 200 mg/dLsuggests DIABETES MELLITUS per A.D.A. criteria. Potassium [Moles/Vol] 4.4 mmol/L 3.5-5.1 [facility] Work Phone: Protein [Mass/Vol] 6.7 g/dL 6.4-8.2 [facility] Work Phone: Sodium [Moles/Vol] 135 mmol/L 136-145 [facility] Work Phone: WBC (Bld) [#/Vol] 7.9 10*3/uL 4.4-11.0 [facility] Work Phone: Blood erythrocytes count (nu mber/volume)on 10-28-2021 RBC (Bld) [#/Vol] 4.65 10*6/uL 4.6-6.2 [facility] Work Phone: Blood hemoglobin measurement (mass/volume)on 10-28-2021 Hemoglobin (Bld) [Mass/Vol] 13.7 g/dL 13.0-16.5 [facility] Work Phone: Blood platelet mean volumeon 10-28-2021 Platelet mean volume (Bld) [Entitic vol] 12.2 fL 6.2-12.0 [facility] Work Phone: Determination of erythrocyte mean corpuscular volume (MCV)on 10-28-2021 MCV (RBC) [Entitic vol] 88.0 fL 80-94 [facility] Work Phone: Direct bilirubinon 2 Bilirubin.direct [Mass/Vol] 0.09 mg/dL 0.00-0.30 [facility] Work Phone: Erythrocyte sedimentation ra santo 10-28-2021 ESR (Bld) [Velocity] 19 mm/h 0-20 [facility] Work [facility]: Hematocrit Auto (Bld) [Volum e fraction]on 10-28-2021 Hematocrit (Bld) [Volume fraction] 40.9 % 40-54 [facility] Work Phone: Laboratory - Chemistry and C hemistry - challengeon 10-28-2021 ALP [Catalytic activity/Vol] 71 U/L 45-117 [facility] Work Phone: ALT [Catalytic activity/Vol] 11 U/L 16-61 [facility] Work Phone: CO2 [Moles/Vol] 29.0 mmol/L 21.0-32.0 [facility] Work Phone: Globulin (S) [Mass/Vol] 3.6 g/dL 2.2-4.2 [facility] Work Phone: Urea nitrogen/Creatinine [Mass ratio] 26.3 mg/mg 10-20 [facility] Work Phone: Laboratory - Hematology and Cell countson 10-28-2021 Erythrocyte distribution width (RBC) [Entitic vol] 41.8 fL 35.1-43.9 [facility] Work Phone: Erythrocyte distribution width (RBC) [Ratio] 13.0 % 11.6-14.6 [facility] Work Phone: MCH (RBC) [Entitic mass] 29.5 pg 27.0-32.0 [facility] Work Phone: MCHC Auto (RBC) [Mass/Vol]on 10-28-2021 MCHC (RBC) [Mass/Vol] 33.5 g/dL 32-36 [facility] Work Phone: No Panel Informationon 10-28 Estimated GFR (MDRD) Amer 141 mL/min >60 [facility] Work Phone: Comment on above: GFR Calc Estimated GFR (MDRD) Non-Af Amer 117 mL/min >60 [facility] Work Phone: Comment on above: Non- GFR Calc Platelets bldon 10-28-2021 Platelets (Bld) [#/Vol] 181 10*3/uL 150-450 [facility] Work Phone: Serum or plasma albumin fam urement (mass/volume)on 10-28-2021 Albumin [Mass/Vol] 3.1 g/dL 3.2-5.0 [facility] Work Phone: Serum or plasma calcium fam urement (mass/volume)on 10-28-2021 Calcium [Mass/Vol] 8.9 mg/dL 8.5-10.1 [facility] Work Phone: Serum or plasma creatinine m easurement (mass/volume)on 10-28-2021 Creatinine [Mass/Vol] 0.76 mg/dL 0.70-1.30 [facility] Work Phone: Comment on above: The validity of the calculated GFR & GFRAA in patients over 70 years has not been determined. Clinical correlation is essential. Serum or plasma urea nitroge n measurement (mass/volume)on 10-28-2021 Urea nitrogen [Mass/Vol] 20 mg/dL 7-18 [facility] Work Phone: Thin prep Papanicolaou smear with manual screeningon 10-28-2021 Thin prep Papanicolaou smear with manual screening 10 U/L 15-37 [facility] Work Phone: Thin prep Papanicolaou smear with manual screening 3 5-15 [facility] Work Phone: Basophil percentageon 2021 Bilirubin [Mass/Vol] 0.40 mg/dL 0.20-1.00 [facility] Work Phone: Comment on above: For patients on eltr ombopag therapy, use of Dimension Alpine TBIL is not recommended. Chloride [Moles/Vol] 105 mmol/L 98-107 [facility] Work Phone: Glucose [Mass/Vol] 330 mg/dL 74-106 [facility] Work Phone: Comment on above: Glucose result great er than or equal to 200 mg/dLsuggests DIABETES MELLITUS per A.D.A. criteria. Potassium [Moles/Vol] 3.8 mmol/L 3.5-5.1 [facility] Work Phone: Protein [Mass/Vol] 6.0 g/dL 6.4-8.2 [facility] Work Phone: Sodium [Moles/Vol] 137 mmol/L 136-145 [facility] Work Phone: WBC (Bld) [#/Vol] 11.7 10*3/uL 4.4-11.0 [facility] Work Phone: Blood erythrocytes count (nu mber/volume)on 10-21-2021 RBC (Bld) [#/Vol] 4.36 10*6/uL 4.6-6.2 [facility] Work Phone: Blood hemoglobin measurement (mass/volume)on 10-21-2021 Hemoglobin (Bld) [Mass/Vol] 12.9 g/dL 13.0-16.5 [facility] Work Phone: Blood platelet mean volumeon 10-21-2021 Platelet mean volume (Bld) [Entitic vol] 12.9 fL 6.2-12.0 [facility] Work Phone: Determination of erythrocyte mean corpuscular volume (MCV)on 10-21-2021 MCV (RBC) [Entitic vol] 87.4 fL 80-94 [facility] Work Phone: Direct bilirubinon 2 Bilirubin.direct [Mass/Vol] 0.11 mg/dL 0.00-0.30 [facility] Work Phone: Erythrocyte sedimentation [place] 10-21-2021 ESR (Bld) [Velocity] 12 mm/h 0-20 [facility]: Hematocrit Auto (Bld) [Volum e fraction]on 10-21-2021 Hematocrit (Bld) [Volume fraction] 38.1 % 40-54 [facility] Work Phone: Laboratory - Chemistry and C hemistry - challengeon 10-21-2021 ALP [Catalytic activity/Vol] 68 U/L 45-117 [facility] Work Phone: ALT [Catalytic activity/Vol] 11 U/L 16-61 [facility] Work Phone: CO2 [Moles/Vol] 25.0 mmol/L 21.0-32.0 [facility] Work Phone: Globulin (S) [Mass/Vol] 3.1 g/dL 2.2-4.2 [facility] Work Phone: Urea nitrogen/Creatinine [Mass ratio] 20.3 mg/mg 10-20 [facility] Work Phone: Laboratory - Hematology and Cell countson 10-21-2021 Erythrocyte distribution width (RBC) [Entitic vol] 41.5 fL 35.1-43.9 [facility] Work Phone: Erythrocyte distribution width (RBC) [Ratio] 12.9 % 11.6-14.6 [facility] Work Phone: MCH (RBC) [Entitic mass] 29.6 pg 27.0-32.0 [facility] Work Phone: MCHC Auto (RBC) [Mass/Vol]on 10-21-2021 MCHC (RBC) [Mass/Vol] 33.9 g/dL 32-36 [facility] Work Phone: No Panel Informationon 10-21 Estimated GFR (MDRD) Amer 172 mL/min >60 [facility] Work Phone: Comment on above: GFR Calc Estimated GFR (MDRD) Non-Af Amer 142 mL/min >60 [facility] Work Phone: Comment on above: Non- GFR Calc Platelets bldon 10-21-2021 Platelets (Bld) [#/Vol] 162 10*3/uL 150-450 [facility] Work Phone: Serum or plasma albumin fam urement (mass/volume)on 10-21-2021 Albumin [Mass/Vol] 2.9 g/dL 3.2-5.0 [facility] Work Phone: Serum or plasma calcium fam urement (mass/volume)on 10-21-2021 Calcium [Mass/Vol] 7.8 mg/dL 8.5-10.1 [facility] Work Phone: Serum or plasma creatinine m easurement (mass/volume)on 10-21-2021 Creatinine [Mass/Vol] 0.64 mg/dL 0.70-1.30 [facility] Work Phone: Comment on above: The validity of the calculated GFR & GFRAA in patients over 70 years has not been determined. Clinical correlation is essential. Serum or plasma urea nitroge n measurement (mass/volume)on 10-21-2021 Urea nitrogen [Mass/Vol] 13 mg/dL 7-18 [facility] Work Phone: Thin prep Papanicolaou smear with manual screeningon 10-21-2021 Thin prep Papanicolaou smear with manual screening 9 U/L 15-37 [facility] Work Phone: Thin prep Papanicolaou smear with manual screening 7 5-15 [facility] Work Phone: Basophil percentageon 2021 Bilirubin [Mass/Vol] 0.20 mg/dL 0.20-1.00 [facility] Work Phone: Comment on above: For patients on eltr ombopag therapy, use of Dimension Alpine TBIL is not recommended. Chloride [Moles/Vol] 105 mmol/L 98-107 [facility] Work Phone: Glucose [Mass/Vol] 217 mg/dL 74-106 [facility] Work Phone: Comment on above: Glucose result great er than or equal to 200 mg/dLsuggests DIABETES MELLITUS per A.D.A. criteria. Potassium [Moles/Vol] 4.4 mmol/L 3.5-5.1 [facility] Work Phone: Protein [Mass/Vol] 6.6 g/dL 6.4-8.2 [facility] Work Phone: Sodium [Moles/Vol] 138 mmol/L 136-145 [facility] Work Phone: WBC (Bld) [#/Vol] 8.9 10*3/uL 4.4-11.0 [facility] Work Phone: Blood erythrocytes count (nu mber/volume)on 10-14-2021 RBC (Bld) [#/Vol] 4.62 10*6/uL 4.6-6.2 [facility] Work Phone: Blood hemoglobin measurement (mass/volume)on 10-14-2021 Hemoglobin (Bld) [Mass/Vol] 13.9 g/dL 13.0-16.5 [facility] Work Phone: Blood platelet mean volumeon 10-14-2021 Platelet mean volume (Bld) [Entitic vol] 11.8 fL 6.2-12.0 [facility] Work Phone: Determination of erythrocyte mean corpuscular volume (MCV)on 10-14-2021 MCV (RBC) [Entitic vol] 88.7 fL 80-94 [facility] Work Phone: Direct bilirubinon 2 Bilirubin.direct [Mass/Vol] 0.09 mg/dL 0.00-0.30 [facility] Work Phone: Erythrocyte sedimentation ra [place]anto 10-14-2021 ESR (Bld) [Velocity] 29 mm/h 0-20 [facility] Work Phone: Hematocrit Auto (Bld) [Volum e fraction]on 10-14-2021 Hematocrit (Bld) [Volume fraction] 41.0 % 40-54 [facility] Work Phone: Laboratory - Chemistry and C hemistry - challengeon 10-14-2021 ALP [Catalytic activity/Vol] 77 U/L 45-117 [facility] Work Phone: ALT [Catalytic activity/Vol] 13 U/L 16-61 [facility] Work Phone: CO2 [Moles/Vol] 28.0 mmol/L 21.0-32.0 [facility] Work Phone: Globulin (S) [Mass/Vol] 3.5 g/dL 2.2-4.2 [facility] Work Phone: Urea nitrogen/Creatinine [Mass ratio] 19.8 mg/mg 10-20 [facility] Work Phone: Laboratory - Hematology and Cell countson 10-14-2021 Erythrocyte distribution width (RBC) [Entitic vol] 43.2 fL 35.1-43.9 [facility] Work Phone: Erythrocyte distribution width (RBC) [Ratio] 13.4 % 11.6-14.6 [facility] Work Phone: MCH (RBC) [Entitic mass] 30.1 pg 27.0-32.0 [facility] Work Phone: MCHC Auto (RBC) [Mass/Vol]on 10-14-2021 MCHC (RBC) [Mass/Vol] 33.9 g/dL 32-36 [facility] Work Phone: No Panel Informationon 10-14 Estimated GFR (MDRD) Amer 167 mL/min >60 [facility] Work Phone: Comment on above: GFR Calc Estimated GFR (MDRD) Non-Af Amer 138 mL/min >60 [facility] Work Phone: Comment on above: Non- GFR Calc Platelets bldon 10-14-2021 Platelets (Bld) [#/Vol] 227 10*3/uL 150-450 [facility] Work Phone: Serum or plasma albumin fam urement (mass/volume)on 10-14-2021 Albumin [Mass/Vol] 3.1 g/dL 3.2-5.0 [facility] Work Phone: Serum or plasma calcium fam urement (mass/volume)on 10-14-2021 Calcium [Mass/Vol] 9.1 mg/dL 8.5-10.1 [facility] Work Phone: Serum or plasma creatinine m easurement (mass/volume)on 10-14-2021 Creatinine [Mass/Vol] 0.66 mg/dL 0.70-1.30 [facility] Work Phone: Comment on above: The validity of the calculated GFR & GFRAA in patients over 70 years has not been determined. Clinical correlation is essential. Serum or plasma urea nitroge n measurement (mass/volume)on 10-14-2021 Urea nitrogen [Mass/Vol] 13 mg/dL 7-18 [facility] Work Phone: Thin prep Papanicolaou smear with manual screeningon 10-14-2021 Thin prep Papanicolaou smear with manual screening 12 U/L 15-37 [facility] Work Phone: Thin prep Papanicolaou smear with manual screening 5 5-15 [facility] Work Phone: Absolute lymphocyte counton 09-29-2021 Lymphocytes Auto (Unsp spec) [#/Vol] 1.63 10*3/uL 0.83-4.51 [facility] Work Phone: Basophil percentageon 2021 Basophils/100 WBC (Bld) 0.8 % 0-1 [facility] Work Phone: Eosinophils/100 WBC (Bld) 5.0 % 0-5 [facility] Work Phone: [phone] Neutrophils (Bld) [#/Vol] 6.1 10*3/uL 2.0-7.7 [facility] Work Phone: Neutrophils/100 WBC (Bld) 69.3 % 47-70 [facility] Work Phone: [phone] Blood lymphocytes/100 leukoc yteson 09-29-2021 Lymphocytes/100 WBC (Bld) 18.4 % 19-41 [facility] Work Phone: Blood monocytes/100 leukocyt eson 09-29-2021 Monocytes/100 WBC (Bld) 6.2 % 0-10 [facility] Work Phone: Laboratory - Chemistry and C hemistry - challengeon 09-29-2021 CK [Catalytic activity/Vol] 64 U/L 39-308 [facility] Work Phone: Laboratory - Hematology and Cell countson 09-29-2021 Immature granulocytes/100 WBC (Bld) 0.300 % 0.0-0.9 [facility] Work Phone: Comment on above: IG% - Immature Granu locytes (promyelocytes, myelocytes and metamyelocytes) > 1% indicates that a LEFT SHIFT is Present. Nucleated RBC/100 WBC (Bld) [Ratio] 0 % 0-5 [facility] Work Phone: Serum or plasma albumin/glob ulin mass ratioon 09-29-2021 Albumin/Globulin [Mass ratio] 1.0 {ratio} 0.9-2.4 [facility] Work Phone: Basophil percentageon 2021 Chloride [Moles/Vol] 107 mmol/L 98-107 [facility] Work Phone: Glucose [Mass/Vol] 271 mg/dL 74-106 [facility] Work Phone: Comment on above: Glucose result great er than or equal to 200 mg/dLsuggests DIABETES MELLITUS per A.D.A. criteria. Potassium [Moles/Vol] 4.2 mmol/L 3.5-5.1 [facility] Work Phone: Sodium [Moles/Vol] 138 mmol/L 136-145 [facility] Work Phone: WBC (Bld) [#/Vol] 10.4 10*3/uL 4.4-11.0 [facility] Work Phone: Blood erythrocytes count (nu mber/volume)on 09-24-2021 RBC (Bld) [#/Vol] 3.97 10*6/uL 4.6-6.2 [facility] Work Phone: Blood hemoglobin measurement (mass/volume)on 09-24-2021 Hemoglobin (Bld) [Mass/Vol] 11.6 g/dL 13.0-16.5 [facility] Work Phone: Blood platelet mean volumeon 09-24-2021 Platelet mean volume (Bld) [Entitic vol] 10.8 fL 6.2-12.0 [facility] Work Phone: Determination of erythrocyte mean corpuscular volume (MCV)on 09-24-2021 MCV (RBC) [Entitic vol] 87.7 fL 80-94 [facility] Work Phone: Hematocrit Auto (Bld) [Volum e fraction]on 09-24-2021 Hematocrit (Bld) [Volume fraction] 34.8 % 40-54 [facility] Work Phone: Laboratory - Chemistry and C hemistry - challengeon 09-24-2021 CO2 [Moles/Vol] 30.0 mmol/L 21.0-32.0 [facility] Work Phone: Urea nitrogen/Creatinine [Mass ratio] 24.7 mg/mg 10-20 [facility] Work Phone: Laboratory - Hematology and Cell countson 09-24-2021 Erythrocyte distribution width (RBC) [Entitic vol] 42.9 fL 35.1-43.9 [facility] Work Phone: Erythrocyte distribution width (RBC) [Ratio] 13.4 % 11.6-14.6 [facility] Work Phone: MCH (RBC) [Entitic mass] 29.2 pg 27.0-32.0 [facility] Work Phone: MCHC Auto (RBC) [Mass/Vol]on 09-24-2021 MCHC (RBC) [Mass/Vol] 33.3 g/dL 32-36 [facility] Work Phone: No Panel Informationon 09-24 Estimated Creatinine Clearance Calc 118.60 ml/min [facility] Work Phone: Estimated GFR (MDRD) Amer 139 mL/min >60 [facility] Work Phone: Comment on above: GFR Calc Estimated GFR (MDRD) Non-Af Amer 115 mL/min >60 [facility] Work Phone: Comment on above: Non- GFR Calc Platelets bldon 09-24-2021 Platelets (Bld) [#/Vol] 210 10*3/uL 150-450 [facility] Work Phone: Serum or plasma calcium fam urement (mass/volume)on 09-24-2021 Calcium [Mass/Vol] 9.1 mg/dL 8.5-10.1 [facility] Work Phone: Serum or plasma creatinine m easurement (mass/volume)on 09-24-2021 Creatinine [Mass/Vol] 0.77 mg/dL 0.70-1.30 [facility] Work Phone: Comment on above: The validity of the calculated GFR & GFRAA in patients over 70 years has not been determined. Clinical correlation is essential. Serum or plasma urea nitroge n measurement (mass/volume)on 09-24-2021 Urea nitrogen [Mass/Vol] 19 mg/dL 7-18 [facility] Work Phone: Thin prep Papanicolaou smear with manual screeningon 09-24-2021 Thin prep Papanicolaou smear with manual screening 1 5-15 [facility] Work Phone: [phone] Absolute lymphocyte counton 09-20-2021 Lymphocytes Auto (Unsp spec) [#/Vol] 1.73 10*3/uL 0.83-4.51 [facility] Work Phone: Basophil percentageon 2021 Basophils/100 WBC (Bld) 1.0 % 0-1 [facility] Work Phone: Chloride [Moles/Vol] 108 mmol/L 98-107 [facility] Work Phone: [phone] Eosinophils/100 WBC (Bld) 3.5 % 0-5 [facility] Work Phone: [phone] Glucose [Mass/Vol] 141 mg/dL 74-106 [facility] Work Phone: Comment on above: Fasting Glucose resu lt greater than or equal to 126 mg/dL suggests DIABETES MELLITUS per A.D.A. criteria. Neutrophils (Bld) [#/Vol] 7.8 10*3/uL 2.0-7.7 [facility] Work Phone: [phone] Neutrophils/100 WBC (Bld) 72.4 % 47-70 [facility] Work Phone: [phone] Potassium [Moles/Vol] 4.1 mmol/L 3.5-5.1 [facility] Work Phone: Sodium [Moles/Vol] 137 mmol/L 136-145 [facility] Work Phone: WBC (Bld) [#/Vol] 10.7 10*3/uL 4.4-11.0 [facility] Work Phone: [phone] Blood erythrocytes count (nu mber/volume)on 09-20-2021 RBC (Bld) [#/Vol] 4.71 10*6/uL 4.6-6.2 [facility] Work Phone: Blood hemoglobin measurement (mass/volume)on 09-20-2021 Hemoglobin (Bld) [Mass/Vol] 13.5 g/dL 13.0-16.5 [facility] Work Phone: Blood lymphocytes/100 leukoc yteson 09-20-2021 Lymphocytes/100 WBC (Bld) 16.2 % 19-41 [facility] Work Phone: Blood monocytes/100 leukocyt eson 09-20-2021 Monocytes/100 WBC (Bld) 6.7 % 0-10 [facility] Work Phone: Blood platelet mean volumeon 09-20-2021 Platelet mean volume (Bld) [Entitic vol] 10.7 fL 6.2-12.0 [facility] Work Phone: Determination of erythrocyte mean corpuscular volume (MCV)on 09-20-2021 MCV (RBC) [Entitic vol] 87.0 fL 80-94 [facility] Work Phone: Glucose Glucometer (BldC) [M ass/Vol]on 09-20-2021 Glucose [Mass/Vol] 156 mg/dL 74-106 [facility] Work Phone: Comment on above: MANAGEMENT OF PATIEN T CARE PER NURSING PROTOCOL Hematocrit Auto (Bld) [Volum e fraction]on 09-20-2021 Hematocrit (Bld) [Volume fraction] 41.0 % 40-54 [facility] Work Phone: Laboratory - Chemistry and C hemistry - challengeon 09-20-2021 CO2 [Moles/Vol] 26.0 mmol/L 21.0-32.0 [facility] Work Phone: Urea nitrogen/Creatinine [Mass ratio] 18.8 mg/mg 10-20 [facility] Work Phone: Laboratory - Hematology and Cell countson 09-20-2021 Erythrocyte distribution width (RBC) [Entitic vol] 45.1 fL 35.1-43.9 [facility] Work Phone: Erythrocyte distribution width (RBC) [Ratio] 14.0 % 11.6-14.6 [facility] Work Phone: Immature granulocytes/100 WBC (Bld) 0.200 % 0.0-0.9 [facility] Work Phone: Comment on above: IG% - Immature Granu locytes (promyelocytes, myelocytes and metamyelocytes) > 1% indicates that a LEFT SHIFT is Present. MCH (RBC) [Entitic mass] 28.7 pg 27.0-32.0 [facility] Work Phone: Nucleated RBC/100 WBC (Bld) [Ratio] 0 % 0-5 [facility] Work Phone: MCHC Auto (RBC) [Mass/Vol]on 09-20-2021 MCHC (RBC) [Mass/Vol] 32.9 g/dL 32-36 [facility] Work Phone: No Panel Informationon 09-20 Estimated Creatinine Clearance Calc 142.69 ml/min [facility] Work Phone: Estimated GFR (MDRD) Amer 172 mL/min >60 [facility] Work Phone: Comment on above: GFR Calc Estimated GFR (MDRD) Non-Af Amer 143 mL/min >60 [facility] Work Phone: Comment on above: Non- GFR Calc Platelets bldon 09-20-2021 Platelets (Bld) [#/Vol] 204 10*3/uL 150-450 [facility] Work Phone: Serum or plasma calcium fam urement (mass/volume)on 09-20-2021 Calcium [Mass/Vol] 8.8 mg/dL 8.5-10.1 [facility] Work Phone: Serum or plasma creatinine m easurement (mass/volume)on 09-20-2021 Creatinine [Mass/Vol] 0.64 mg/dL 0.70-1.30 [facility] Work Phone: Comment on above: The validity of the calculated GFR & GFRAA in patients over 70 years has not been determined. Clinical correlation is essential. Serum or plasma urea nitroge n measurement (mass/volume)on 09-20-2021 Urea nitrogen [Mass/Vol] 12 mg/dL 7-18 [facility] Work Phone: Thin prep Papanicolaou smear with manual screeningon 09-20-2021 Thin prep Papanicolaou smear with manual screening 3 5-15 [facility] Work Phone: Gram stain for investigation of transfusion reactionon 09-19-2021 Microscopic observation Gram stain Nom (Unsp spec) [facility] Work Phone: Vancomycin troughon 09-19-19 22 Vancomycin trough [Mass/Vol] 17.5 ug/mL 5.0-15.0 [facility] Work Phone: Comment on above: VANCOMYCIN STANDARED DRUG THERAPY TROUGH LEVEL: 5.0 - 15.0 mg/L VANCOMYCIN HIGH INTENSITY THERAPY TROUGH LEVEL: 15.0 - 20.0 mg/L High Intensity therapy recommended for serious lifethreatening infections include:- Tnhokzejtu-Krziexgospxk-Rixmqnkjo (Ventilator/Healtcare Associated)-Sepsis PLEASE CONTACT PHARMACY SERVICES (#[id number]) FOR INTERPRETATIONOF RESULTS. Basophil percentageon 2021 Bilirubin [Mass/Vol] 0.30 mg/dL 0.20-1.00 [facility] Work Phone: Comment on above: For patients on eltr ombopag therapy, use of Dimension Alpine TBIL is not recommended. Protein [Mass/Vol] 6.0 g/dL 6.4-8.2 [facility] Work Phone: Direct bilirubinon 2 Bilirubin.direct [Mass/Vol] 0.10 mg/dL 0.00-0.30 [facility] Work Phone: Laboratory - Chemistry and C hemistry - challengeon 09-15-2021 ALP [Catalytic activity/Vol] 73 U/L 45-117 [facility] Work Phone: ALT [Catalytic activity/Vol] 10 U/L 16-61 [facility] Work Phone: Globulin (S) [Mass/Vol] 3.3 g/dL 2.2-4.2 [facility] Work Phone: No Panel Informationon 09-15 Thyroid Stimulating Hormone (TSH) 2.26 uIU/mL 0.358-3.74 [facility] Work Phone: Serum or plasma albumin fam urement (mass/volume)on 09-15-2021 Albumin [Mass/Vol] 2.7 g/dL 3.2-5.0 [facility] Work Phone: Thin prep Papanicolaou smear with manual screeningon 09-15-2021 Thin prep Papanicolaou smear with manual screening 10 U/L 15-37 [facility] Work Phone: Whole blood hemoglobin A1c/t otal hemoglobin ratio (mass fraction)on 09-15-2021 HbA1c (Bld) [Mass fraction] 10.8 % 3.8-5.6 [facility] Work Phone: Comment on above: Normal < 5.7 % Predi abetic 5.7 - 6.4 % Diabetic >or= 6.5 % Please note range changes. Erythrocyte sedimentation ra [place]anto 09-14-2021 ESR (Bld) [Velocity] 33 mm/h 0-20 [facility] Work Phone: Laboratory - Microbiology an d Antimicrobial susceptibilityon 09-14-2021 Bacteria identified Cx Nom (Bld) No growth in 5 days. [facility] Work Phone: Serum or plasma C reactive p rotein measurement (mass/volume)on 09-14-2021 CRP [Mass/Vol] 5.31 mg/L 0.0-3.0 [facility] Work Phone: Comment on above: C-Reactive Protein ( CRP) provides useful information for thediagnosis, therapy and monitoring of inflammatory processesand associated diseases. For the evaluation of Relative Riskfor Cardiovascular Disease, a High Sensitivity CRP (HSCRP)should be ordered. Serum or plasma albumin/glob ulin mass ratioon 09-14-2021 Albumin/Globulin [Mass ratio] 0.9 {ratio} 0.9-2.4 [facility] Work Phone: CULTURE ANAEROBEon 0 CULTURE ANAEROBE CULTURE ANAEROBE --> Status: F No growth of anaerobes at 5 days. Normal [facility] Comment on above: Performed By: #### H SHASHI CAMARENA, CMP3 #### [facility] [address] [place] [address] CULTURE AND STAIN - TISSUEon 07-10-2020 CULTURE AND STAIN - TISSUE STAIN GRAM --> Status: F Few polymorphonuclear cells/lpf. Few gram positive cocci in pairs. Few gram positive cocci in pairs. 1 Organism Staphylococcus aureus Moderate Negative for PBP2a (MSSA). Methicillin-resistant Staphylococcus aureus(MRSA) NOTE: Susceptibility testing confirmed this organism's methicillin resistance. ------ 1 Organism ------ Antibiotic Result Intrp ------ Nafcillin/Oxacillin(LONNY) >= 4 R Inducible Clindamycin Resistant(LONNY)Neg Neg Clindamycin(LONNY) 0.25 S Vancomycin(LONNY) 1 S Trimeth/Sulfa(LONNY) <= 10 S Linezolid(LONNY) 2 S Daptomycin(LONNY) 1 S Gentamicin(LONNY) <= 0.5 S Doxycycline(LONNY) <= 0.5 S Tigecycline(LONNY) <= 0.12 S Rifampin(LONNY) <= 0.5 S [facility] Comment on above: Performed By: #### H NICOL, SHASHI, CMP3 #### [facility] [address] [place] [address] CBC Auto Differentialon 12-2 Absolute Baso # 0.1 10*3/uL 0 - 0.2 10*3/uL [place], [place] Absolute Neut # 3.3 10*3/uL 1.8 - 7 10*3/uL [place] Basophils/100 WBC (Bld) 1.4 % 0 - 2 % [place] Eosinophils (Bld) [#/Vol] 0.5 10*3/uL 0 - 0.5 10*3/uL [place] Eosinophils/100 WBC (Bld) 7.2 % High 1 - 6 % [place] Erythrocyte distribution width (RBC) [Ratio] 16.9 % High 11.5 - 14.5 % [place] Granulocytes/100 WBC (Bld) 51.3 % 40 - 80 % [place] Hematocrit (Bld) [Volume fraction] 35.0 % Low 40 - 52 % [place] Hemoglobin (Bld) [Mass/Vol] 11.4 g/dL Low 13 - 18 g/dL [place] Interpretation and review of laboratory results Abnormal [place] Lymphocytes (Bld) [#/Vol] 2.0 10*3/uL 1 - 4.3 10*3/uL [place] Lymphocytes/100 WBC (Bld) 30.7 % 20 - 40 % [place] MCH (RBC) [Entitic mass] 26.3 pg 26 - 34 pg [place] MCHC (RBC) [Mass/Vol] 32.6 % 32 - 36 % [place], [place] MCV (RBC) [Entitic vol] 80.7 fL 80 - 98 fL [place] Monocytes (Bld) [#/Vol] 0.6 10*3/uL 0 - 0.8 10*3/uL [place] Monocytes/100 WBC (Bld) 9.4 % 2 - 10 % [place] Platelet mean volume (Bld) [Entitic vol] 8.3 fL 7.4 - 10.4 fL [place] Platelets (Bld) [#/Vol] 239 10*3/uL 140 - 440 10*3/uL [place] RBC (Bld) [#/Vol] 4.33 10*6/uL Low 4.4 - 5.9 10*6/uL [place] WBC (Bld) [#/Vol] 6.5 10*3/uL 3.6 - 10.7 10*3/uL [place] Test Performed by [facility], [address] [place] [address] [place], [place] Comp Metabolic Panelon 07-09 ALP [Catalytic activity/Vol] 70 U/L Normal 38-126 [facility] Comment on above: Performed By: #### C UA2 #### [facility] [address] [place] [address] ALT [Catalytic activity/Vol] 10 U/L Normal 0-49 [facility] Comment on above: Result Comment: The ALT test is performed by an updated assay method. Please note that the reference intervals have been changed and are now sex specific. Performed By: #### C UA2 #### [facility] [address] [place] [address] Anion gap [Moles/Vol] 5 Normal [facility] Comment on above: Performed By: #### C UA2 #### [facility] [address] [place] [address] AST [Catalytic activity/Vol] 24 U/L Normal 15-46 [facility] Comment on above: Performed By: #### C UA2 #### [facility] [address] [place] [address] Bilirubin [Mass/Vol] 0.2 mg/dL Normal 0.2-1.3 [facility] Comment on above: Performed By: #### C UA2 #### [facility] [address] [place] [address] Calcium [Mass/Vol] 8.9 mg/dL Normal 8.4-10.4 [facility] Comment on above: Performed By: #### C UA2 #### [facility] [address] [place] [address] CO2 [Moles/Vol] 30 mmol/L Normal 22-30 [facility] Comment on above: Performed By: #### C UA2 #### [facility] [address] [place] [address] Creatinine [Mass/Vol] 0.56 mg/dL Normal 0.52-1.25 [facility] Comment on above: Performed By: #### C UA2 #### [facility] [address] [place] [address] GFR/1.73 sq M predicted among blacks MDRD (S/P/Bld) [Vol rate/Area] mL/min/{1.73_m2} Normal >60 [facility] Comment on above: Performed By: #### C UA2 #### [facility] [address] [place] [address] GFR/1.73 sq M predicted among non-blacks MDRD (S/P/Bld) [Vol rate/Area] mL/min/{1.73_m2} Normal >60 [facility] Comment on above: Result Comment: KDIG O guidelines provide the following GFR categories: Stage GFR(ml/min/1.73 m2) Terms G1 >=90 Normal or high G2 60-89 Mildly decreased* G3a 45-59 Mildly to moderately decreased G3b 30-44 Moderately to severely decreased G4 15-29 Severely decreased G5 <15 Kidney failure *Relative to young adult level. In the absence of evidence of kidney damage, neither GFR category G1 nor G2 fulfill the criteria for CKD. The CKD-EPI equation is validated in individuals 18 years of age and older. Currently the best equation for estimating glomerular filtration rate (GFR) from serum creatinine in children is the Bedside Harkins equation. It is less accurate in patients with extremes of muscle mass, restriction of dietary protein, ingestion of creatine, extra-renal metabolism of creatinine, or treatment with medications that affect renal tubular creatinine secretion. Performed By: #### C UA2 #### [facility] [address] [place] [address] Glucose [Mass/Vol] 293 mg/dL High 70-100 [facility] Comment on above: Performed By: #### C UA2 #### [facility] [address] [place] [address] Protein [Mass/Vol] 6.6 g/dL Normal 6.3-8.2 [facility] Comment on above: Performed By: #### C UA2 #### [facility] [address] [place] [address] Urea nitrogen [Mass/Vol] 12 mg/dL Normal 7-20 [facility] Comment on above: Performed By: #### C UA2 #### [facility] [address] [address] [place] [address] Albumin [Mass/Vol] 3.5 g/dL Normal 3.5-5.0 [facility] Comment on above: Performed By: #### C UA2 #### [facility] [address] [place] [address] Chloride [Moles/Vol] 98 mmol/L Normal 98-107 [facility] Comment on above: Performed By: #### C UA2 #### [facility] [address] [place] [address] Potassium [Moles/Vol] 4.3 mmol/L Normal 3.5-5.1 [facility] Comment on above: Performed By: #### C UA2 #### [facility] [address] [place] [address] Sodium [Moles/Vol] 133 mmol/L Low 135-145 [facility] Comment on above: Performed By: #### C UA2 #### [facility] [address] [place] [address] Comprehensive Metabolic Pane con 07-09-2020 Albumin [Mass/Vol] 3.5 g/dL 3.5 - 5 g/dL [place], [place] ALP [Catalytic activity/Vol] 70 U/L 38 - 126 U/L [place] ALT [Catalytic activity/Vol] 10 U/L 0 - 49 U/L [place] Comment on above: The ALT test is perf ormed by an updated assay method. Please note that the reference intervals have been changed and are now sex specific. Anion gap [Moles/Vol] 5 mmol/L [place], [place] AST [Catalytic activity/Vol] 24 U/L 15 - 46 U/L [place] Bilirubin Ql (U) 0.2 mg/dL 0.2 - 1.3 mg/dL [place] Calcium [Mass/Vol] 8.9 mg/dL 8.4 - 10. 4 mg/dL [place] Chloride [Moles/Vol] 98 mmol/L 98 - 10 7 mmol/L [place] CO2 [Moles/Vol] 30 mmol/L 22 - 30 mmol/L [place] Creatinine [Mass/Vol] 0.56 mg/dL 0.52 - 1.25 mg/dL [place] EGFR IF NonAfrican Cambodian >90.0 >60 mL/min [place] Comment on above: KDIGO guidelines pro vide the following GFR categories: Stage GFR(ml/min/1.73 m2) Terms G1 >=90 Normal or high G2 60-89 Mildly decreased* G3a 45-59 Mildly to moderately decreased G3b 30-44 Moderately to severely decreased G4 15-29 Severely decreased G5 <15 Kidney failure *Relative to young adult level. In the absence of evidence of kidney damage, neither GFR category G1 nor G2 fulfill the criteria for CKD. The CKD-EPI equation is validated in individuals 18 years of age and older. Currently the best equation for estimating glomerular filtration rate (GFR) from serum creatinine in children is the Bedside Harkins equation. It is less accurate in patients with extremes of muscle mass, restriction of dietary protein, ingestion of creatine, extra-renal metabolism of creatinine, or treatment with medications that affect renal tubular creatinine secretion. GFR/1.73 sq M predicted among blacks MDRD (S/P/Bld) [Vol rate/Area] mL/min/{1.73_m2} >60 mL/min [place] Glucose [Mass/Vol] 293 mg/dL High 70 - 100 mg/dL [place] Interpretation and review of laboratory results Abnormal [place] Potassium [Moles/Vol] 4.3 mmol/L 3.5 - 5.1 mmol/L [place] Protein [Mass/Vol] 6.6 g/dL 6.3 - 8.2 g/dL [place] Sodium [Moles/Vol] 133 mmol/L Low 135 - 145 mmol/L [place] Urea nitrogen [Mass/Vol] 12 mg/dL 7 - 20 mg/dL [place] Test Performed by [facility], [address] [place] [address] [place] HEP C RNA, QUANT (VIRAL LOAD )on 07-09-2020 Hepatitis C RNA Quant Log 2.49 {Log_IU} Abnormal <1.18 [place] Hepatitis C RNA Quantitative 310 [IU]/mL Abnormal <15 [place] Interpretation and review of laboratory results Abnormal [place] Note: Interpretation [place] Comment on above: The linear detection limit for this assay is 15 HCV IU/ml. A result of <15 IU (<1.18 log IU) indicates that HCV was detected, but at a level below the linear cutoff. A result of None Detected means that no HCV RNA was detected. Test Performed by [facility], [address] [place] [id number] [place] Hemogram w/ Autodiffon 07-09 Abs Baso Cnt 0.1 10*3/uL Normal 0.0-0.2 [facility] Comment on above: Performed By: #### C UA2 #### [facility] [address] [place] [address] Abs Neutrophile Cnt 3.3 10*3/uL Normal 1.8-7.0 [facility] Comment on above: Performed By: #### C UA2 #### [facility] [address] [place] [address] Basophils/100 WBC (Bld) 1.4 % Normal 0.0-2.0 [facility] Comment on above: Performed By: #### C UA2 #### [facility] [address] [place] [address] Eosinophils (Bld) [#/Vol] 0.5 10*3/uL Normal 0.0-0.5 [facility] Comment on above: Performed By: #### C UA2 #### [facility] [address] [place] [address] Eosinophils/100 WBC (Bld) 7.2 % High 1.0-6.0 [facility] Comment on above: Performed By: #### C UA2 #### [facility] [address] [place] [address] Erythrocyte distribution width (RBC) [Ratio] 16.9 % High 11.5-14.5 [facility] Comment on above: Performed By: #### C UA2 #### [facility] [address] [place] [address] Granulocytes/100 WBC (Bld) 51.3 % Normal 40.0-80.0 [facility] Comment on above: Performed By: #### C UA2 #### [facility] [address] [place] [address] Hematocrit (Bld) [Volume fraction] 35.0 % Low 40.0-52.0 [facility] Comment on above: Performed By: #### C UA2 #### [facility] [address] [place] [address] Hemoglobin (Bld) [Mass/Vol] 11.4 g/dL Low 13.0-18.0 [facility] Comment on above: Performed By: #### C UA2 #### [facility] [address] [place] [address] Lymphocytes (Bld) [#/Vol] 2.0 10*3/uL Normal 1.0-4.3 [facility] Comment on above: Performed By: #### C UA2 #### [facility] [address] [place] [address] Lymphocytes/100 WBC (Bld) 30.7 % Normal 20.0-40.0 [facility] Comment on above: Performed By: #### C UA2 #### [facility] [address] [place] [address] MCH (RBC) [Entitic mass] 26.3 pg Normal 26.0-34.0 [facility] Comment on above: Performed By: #### C UA2 #### [facility] [address] [place] [address] MCHC (RBC) [Mass/Vol] 32.6 % Normal 32.0-36.0 [facility] Comment on above: Performed By: #### C UA2 #### [facility] [address] [place] [address] MCV (RBC) [Entitic vol] 80.7 fL Normal 80.0-98.0 [facility] Comment on above: Performed By: #### C UA2 #### [facility] [address] [place] [address] Monocytes (Bld) [#/Vol] 0.6 10*3/uL Normal 0.0-0.8 [facility] Comment on above: Performed By: #### C UA2 #### [facility] [address] [place] [address] Monocytes/100 WBC (Bld) 9.4 % Normal 2.0-10.0 [facility] Comment on above: Performed By: #### C UA2 #### [facility] [address] [place] [address] Platelet mean volume (Bld) [Entitic vol] 8.3 fL Normal 7.4-10.4 [facility] Comment on above: Performed By: #### C UA2 #### [facility] [address] [place] [address] Platelets (Bld) [#/Vol] 239 10*3/uL Normal 140-440 [facility] Comment on above: Performed By: #### C UA2 #### [facility] [address] [place] [address] RBC (Bld) [#/Vol] 4.33 10*6/uL Low 4.40-5.90 [facility] Comment on above: Performed By: #### C UA2 #### [facility] [address] [place] [address] WBC (Bld) [#/Vol] 6.5 10*3/uL Normal 3.6-10.7 [facility] Comment on above: Performed By: #### C UA2 #### [facility] [address] [place] [address] Hepatitis C RNA Quanton 12-2 Hep C RNA Quant (log) 2.49 {Log_IU} Abnormal <1.18 [facility] Comment on above: Performed By: #### H A1C2, HEMDF, PT, CMP3 #### [facility] [address] [place] [address] #### HCVQ #### [facility] [address] [place] [address] Hepatitis C RNA Quant 310 [IU]/mL Abnormal <15 [facility] Comment on above: Performed By: #### H A1C2, HEMDF, PT, CMP3 #### [facility] [address] [place] [address] #### HCVQ #### [facility] [address] [place] [address] Other 07-09-2020 Shirley Castrejon RN 07/09/2020 2:34 PM Education was completed for PICC line prior to insertion which included purpose for line, alternatives, procedural details, infection prevention, post-insertion care, risks and benefits. Inserted PICC line as ordered for long-term IV antibiotics. Refer to IV Assessment on Flowsheets tab for additional procedural details. Renato GUTIERREZ,BSN,[facility] PICC PROCEDURE NOTE History/labs/allergies were reviewed prior to PICC insertion INDICATION: long-term IV antibiotics Consent was obtained after explaining the procedure, indication, risks and benefits to patient and/or next of kin. Time out was performed before procedure Sterile prep: Complete handwashing care was performed by all involved personnel prior to initiation of the procedure. Full maximum sterile field/barrier technique was followed (with cap and mask, gloves and sterile gown, as well as broad field sterile drapes). Local disinfection was performed with broad field application of chloraprep solution, which was allowed to dry fully prior to the initiation of the procedure. Local anesthetic: Aqueous lidocaine 1% used at site Site prior to insertion: benign Ultrasound guidance used. A recorded image of vein used was printed and placed on record Lot # [id number] Catheter type: Bard Power PICC - 5 Guyanese Single Lumen Location: Right basilic vein Trimmed at 46 cm ; initial external catheter 2 cm Procedure: The site was prepped with chlorprep solution. Using modified seldinger technique, the above vessel was located and venous access obtained with 20g 1.88cm catheter. Wire advanced, peal-away sheath inserted with dilator was advanced over wire, wire and dilator removed, PICC positioned through introducer using Sherlock technology with ECG technology in lieu of chest xray The site was reprepped with chlorprep solution followed by placement of a Biopatch device and secured in place via securement device and covered with occlusive dressing. Hemostasis was assured at the termination of procedure. ECG tip confirmation report placed on record verifying location of PICC tip resides within distal SVC. Prevention of Catheter Related Bloodstream Infection info sheet left at bedside. Complications: None [place] POCT Glucoseon 07-09-2020 Glucose [Mass/Vol] 252 mg/dL High 70 - 100 mg/dL [place] Comment on above: Test performed by gl ucose meter. Results may be 10%-15% lower than serum/plasma values. (CLIA ID [id number]) Interpretation and review of laboratory results Abnormal [place] Test Performed by [facility], [address] [place], [place] [id number] [place] [address] Glucose [Mass/Vol] 262 mg/dL High 70 - 100 mg/dL [place] Comment on above: Test performed by gl ucose meter. Results may be 10%-15% lower than serum/plasma values. (CLIA ID [id number]) Interpretation and review of laboratory results Abnormal [place] Test Performed by [facility], [address] [place], [place] [id number] [place] [address] CBC Auto Differentialon 06-20 Absolute Baso # 0.1 10*3/uL 0 - 0.2 10*3/uL [place] Absolute Neut # 3.8 10*3/uL 1.8 - 7 10*3/uL [place] Basophils/100 WBC (Bld) 1.4 % 0 - 2 % [place] Eosinophils (Bld) [#/Vol] 0.5 10*3/uL 0 - 0.5 10*3/uL [place] Eosinophils/100 WBC (Bld) 6.6 % High 1 - 6 % [place] Erythrocyte distribution width (RBC) [Ratio] 16.9 % High 11.5 - 14.5 % [place] Granulocytes/100 WBC (Bld) 54.1 % 40 - 80 % [place] Hematocrit (Bld) [Volume fraction] 33.6 % Low 40 - 52 % [place] Hemoglobin (Bld) [Mass/Vol] 11.2 g/dL Low 13 - 18 g/dL [place] Interpretation and review of laboratory results Abnormal [place] Lymphocytes (Bld) [#/Vol] 2.0 10*3/uL 1 - 4.3 10*3/uL [place] Lymphocytes/100 WBC (Bld) 28.9 % 20 - 40 % [place] MCH (RBC) [Entitic mass] 26.6 pg 26 - 34 pg [place] MCHC (RBC) [Mass/Vol] 33.3 % 32 - 36 % [place] MCV (RBC) [Entitic vol] 79.7 fL Low 80 - 98 fL [place] Monocytes (Bld) [#/Vol] 0.6 10*3/uL 0 - 0.8 10*3/uL [place] Monocytes/100 WBC (Bld) 9.0 % 2 - 10 % [place] Platelet mean volume (Bld) [Entitic vol] 8.4 fL 7.4 - 10.4 fL [place] Platelets (Bld) [#/Vol] 221 10*3/uL 140 - 440 10*3/uL [place] RBC (Bld) [#/Vol] 4.21 10*6/uL Low 4.4 - 5.9 10*6/uL [place] WBC (Bld) [#/Vol] 7.1 10*3/uL 3.6 - 10.7 10*3/uL [place] Test Performed by [facility], [address], [place], [place] [address] [place] Comp Metabolic Panelon 07-08 ALP [Catalytic activity/Vol] 71 U/L Normal 38-126 [facility] Comment on above: Performed By: #### H EMDF, LIPA4, CMP3 #### [facility] [address] [place] [address] ALT [Catalytic activity/Vol] 9 U/L Normal 0-49 [facility] Comment on above: Result Comment: The ALT test is performed by an updated assay method. Please note that the reference intervals have been changed and are now sex specific. Performed By: #### H EMDF, LIPA4, CMP3 #### [facility] [address] [place] [address] Anion gap [Moles/Vol] 3 Normal [facility] Comment on above: Performed By: #### H EMDF, LIPA4, CMP3 #### [facility] [address] [place] [address] AST [Catalytic activity/Vol] 22 U/L Normal 15-46 [facility] Comment on above: Performed By: #### H EMDF, LIPA4, CMP3 #### [facility] [address] [place] [address] Bilirubin [Mass/Vol] 0.4 mg/dL Normal 0.2-1.3 [facility] Comment on above: Performed By: #### H EMDF, LIPA4, CMP3 #### [facility] [address] [place] [address] Calcium [Mass/Vol] 8.8 mg/dL Normal 8.4-10.4 [facility] Comment on above: Performed By: #### H EMDF, LIPA4, CMP3 #### [facility] [address] [place] [address] CO2 [Moles/Vol] 29 mmol/L Normal 22-30 [facility] Comment on above: Performed By: #### H EMDF, LIPA4, CMP3 #### [facility] [address] [place] [address] Creatinine [Mass/Vol] 0.57 mg/dL Normal 0.52-1.25 [facility] Comment on above: Performed By: #### H EMDF, LIPA4, CMP3 #### [facility] [address] [place] [address] GFR/1.73 sq M predicted among blacks MDRD (S/P/Bld) [Vol rate/Area] mL/min/{1.73_m2} Normal >60 [facility] Comment on above: Performed By: #### H EMDF, LIPA4, CMP3 #### [place] [facility] [address] [place] [address] GFR/1.73 sq M predicted among non-blacks MDRD (S/P/Bld) [Vol rate/Area] mL/min/{1.73_m2} Normal >60 [facility] Comment on above: Result Comment: KDIG O guidelines provide the following GFR categories: Stage GFR(ml/min/1.73 m2) Terms G1 >=90 Normal or high G2 60-89 Mildly decreased* G3a 45-59 Mildly to moderately decreased G3b 30-44 Moderately to severely decreased G4 15-29 Severely decreased G5 <15 Kidney failure *Relative to young adult level. In the absence of evidence of kidney damage, neither GFR category G1 nor G2 fulfill the criteria for CKD. The CKD-EPI equation is validated in individuals 18 years of age and older. Currently the best equation for estimating glomerular filtration rate (GFR) from serum creatinine in children is the Bedside Harkins equation. It is less accurate in patients with extremes of muscle mass, restriction of dietary protein, ingestion of creatine, extra-renal metabolism of creatinine, or treatment with medications that affect renal tubular creatinine secretion. Performed By: #### H EMDF, LIPA4, CMP3 #### [place] [facility] [address] [place] [address] Glucose [Mass/Vol] 275 mg/dL High 70-100 [facility] Comment on above: Performed By: #### H EMDF, LIPA4, CMP3 #### [place] [facility] [address] [place] [address] Protein [Mass/Vol] 6.2 g/dL Low 6.3-8.2 [facility] Comment on above: Performed By: #### H EMDF, LIPA4, CMP3 #### [facility] [address] [place] [address] Urea nitrogen [Mass/Vol] 12 mg/dL Normal 7-20 [facility] Comment on above: Performed By: #### H EMDF, LIPA4, CMP3 #### [place] [facility] [address] [place] [address] Albumin [Mass/Vol] 3.4 g/dL Low 3.5-5.0 [facility] Comment on above: Performed By: #### H EMDF, LIPA4, CMP3 #### [facility] [address] [place] [address] Chloride [Moles/Vol] 102 mmol/L Normal 98-107 [facility] Comment on above: Performed By: #### H EMDF, LIPA4, CMP3 #### [facility] [address] [place] [address] Potassium [Moles/Vol] 4.5 mmol/L Normal 3.5-5.1 [facility] Comment on above: Performed By: #### H EMDF, LIPA4, CMP3 #### [facility] [address] [place] [address] Sodium [Moles/Vol] 134 mmol/L Low 135-145 [facility] Comment on above: Performed By: #### H EMDF, LIPA4, CMP3 #### [facility] [address] [place] [address] Comprehensive Metabolic Pane [facility] 07-08-2020 Albumin [Mass/Vol] 3.4 g/dL Low 3.5 - 5 g/dL [place] ALP [Catalytic activity/Vol] 71 U/L 38 - 126 U/L [place] ALT [Catalytic activity/Vol] 9 U/L 0 - 49 U/L [place] Comment on above: The ALT test is perf ormed by an updated assay method. Please note that the reference intervals have been changed and are now sex specific. Anion gap [Moles/Vol] 3 mmol/L [place] AST [Catalytic activity/Vol] 22 U/L 15 - 46 U/L [place] Bilirubin Ql (U) 0.4 mg/dL 0.2 - 1.3 mg/dL [place] Calcium [Mass/Vol] 8.8 mg/dL 8.4 - 10. 4 mg/dL [place] Chloride [Moles/Vol] 102 mmol/L 98 - 10 7 mmol/L [place] CO2 [Moles/Vol] 29 mmol/L 22 - 30 mmol/L [place] Creatinine [Mass/Vol] 0.57 mg/dL 0.52 - 1.25 mg/dL [place] EGFR IF NonAfrican [place]ian >90.0 >60 mL/min [place] Comment on above: KDIGO guidelines pro vide the following GFR categories: Stage GFR(ml/min/1.73 m2) Terms G1 >=90 Normal or high G2 60-89 Mildly decreased* G3a 45-59 Mildly to moderately decreased G3b 30-44 Moderately to severely decreased G4 15-29 Severely decreased G5 <15 Kidney failure *Relative to young adult level. In the absence of evidence of kidney damage, neither GFR category G1 nor G2 fulfill the criteria for CKD. The CKD-EPI equation is validated in individuals 18 years of age and older. Currently the best equation for estimating glomerular filtration rate (GFR) from serum creatinine in children is the Bedside Harkins equation. It is less accurate in patients with extremes of muscle mass, restriction of dietary protein, ingestion of creatine, extra-renal metabolism of creatinine, or treatment with medications that affect renal tubular creatinine secretion. GFR/1.73 sq M predicted among blacks MDRD (S/P/Bld) [Vol rate/Area] mL/min/{1.73_m2} >60 mL/min [place] Glucose [Mass/Vol] 275 mg/dL High 70 - 100 mg/dL [place] Interpretation and review of laboratory results Abnormal [place] Potassium [Moles/Vol] 4.5 mmol/L 3.5 - 5.1 mmol/L [place] Protein [Mass/Vol] 6.2 g/dL Low 6.3 - 8.2 g/dL [place] Sodium [Moles/Vol] 134 mmol/L Low 135 - 145 mmol/L [place] Urea nitrogen [Mass/Vol] 12 mg/dL 7 - 20 mg/dL [place] Test Performed by [facility], [address], [place], [place] [address] [place] Hemogram w/ Autodiffon 07-08 Abs Baso Cnt 0.1 10*3/uL Normal 0.0-0.2 [facility] Comment on above: Performed By: #### H EMDF, LIPA4, CMP3 #### [facility] [address] [place] [address] Abs Neutrophile Cnt 3.8 10*3/uL Normal 1.8-7.0 [facility] Comment on above: Performed By: #### H EMDF, LIPA4, CMP3 #### [facility] [address] [place] [address] Basophils/100 WBC (Bld) 1.4 % Normal 0.0-2.0 [facility] Comment on above: Performed By: #### H EMDF, LIPA4, CMP3 #### [facility] [address] [place] [address] Eosinophils (Bld) [#/Vol] 0.5 10*3/uL Normal 0.0-0.5 [facility] Comment on above: Performed By: #### H EMDF, LIPA4, CMP3 #### [facility] [address] [place] [address] Eosinophils/100 WBC (Bld) 6.6 % High 1.0-6.0 [facility] Comment on above: Performed By: #### H EMDF, LIPA4, CMP3 #### [facility] [address] [place] [address] Erythrocyte distribution width (RBC) [Ratio] 16.9 % High 11.5-14.5 [facility] Comment on above: Performed By: #### H EMDF, LIPA4, CMP3 #### [facility] [address] [place] [address] Granulocytes/100 WBC (Bld) 54.1 % Normal 40.0-80.0 [facility] Comment on above: Performed By: #### H EMDF, LIPA4, CMP3 #### [facility] [address] [place] [address] Hematocrit (Bld) [Volume fraction] 33.6 % Low 40.0-52.0 [facility] Comment on above: Performed By: #### H EMDF, LIPA4, CMP3 #### [facility] [address] [place] [address] Hemoglobin (Bld) [Mass/Vol] 11.2 g/dL Low 13.0-18.0 [facility] Comment on above: Performed By: #### H EMDF, LIPA4, CMP3 #### [facility] [address] [place] [address] Lymphocytes (Bld) [#/Vol] 2.0 10*3/uL Normal 1.0-4.3 [facility] Comment on above: Performed By: #### H EMDF, LIPA4, CMP3 #### [facility] [address] [place] [address] Lymphocytes/100 WBC (Bld) 28.9 % Normal 20.0-40.0 [facility] Comment on above: Performed By: #### H EMDF, LIPA4, CMP3 #### [facility] [address] [place] [address] MCH (RBC) [Entitic mass] 26.6 pg Normal 26.0-34.0 [facility] Comment on above: Performed By: #### H EMDF, LIPA4, CMP3 #### [facility] [address] [place] [address] MCHC (RBC) [Mass/Vol] 33.3 % Normal 32.0-36.0 [facility] Comment on above: Performed By: #### H EMDF, LIPA4, CMP3 #### [facility] [address] [place] [address] MCV (RBC) [Entitic vol] 79.7 fL Low 80.0-98.0 [facility] Comment on above: Performed By: #### H EMDF, LIPA4, CMP3 #### [facility] [address] [place] [address] Monocytes (Bld) [#/Vol] 0.6 10*3/uL Normal 0.0-0.8 [facility] Comment on above: Performed By: #### H EMDF, LIPA4, CMP3 #### [facility] [address] [place] [address] Monocytes/100 WBC (Bld) 9.0 % Normal 2.0-10.0 [facility] Comment on above: Performed By: #### H EMDF, LIPA4, CMP3 #### [facility] [address] [place] [address] Platelet mean volume (Bld) [Entitic vol] 8.4 fL Normal 7.4-10.4 [facility] Comment on above: Performed By: #### H EMDF, LIPA4, CMP3 #### [facility] [address] [place] [address] Platelets (Bld) [#/Vol] 221 10*3/uL Normal 140-440 [facility] Comment on above: Performed By: #### H EMDF, LIPA4, CMP3 #### [facility] [address] [place] [address] RBC (Bld) [#/Vol] 4.21 10*6/uL Low 4.40-5.90 [facility] Comment on above: Performed By: #### H EMDF, LIPA4, CMP3 #### [facility] [address] [place] [address] WBC (Bld) [#/Vol] 7.1 10*3/uL Normal 3.6-10.7 [facility] Comment on above: Performed By: #### H EMDF, LIPA4, CMP3 #### [place] [facility] [address] [place] [address] POCT Glucoseon 07-08-2020 Glucose [Mass/Vol] 240 mg/dL High 70 - 100 mg/dL [facility] [place] Comment on above: Test performed by gl ucose meter. Results may be 10%-15% lower than serum/plasma values. (CLIA ID [id number]) Interpretation and review of laboratory results Abnormal [employer] [employer], [place] Test Performed by [facility], [address] [place] [address] [facility] Glucose [Mass/Vol] 279 mg/dL High 70 - 100 mg/dL [employer] Comment on above: Test performed by [employer] ucose meter. Results may be 10%-15% lower than serum/plasma values. (CLIA ID [id number]) Interpretation and review of laboratory results Abnormal [employer] Test Performed by [facility], [address] [place] [address] [place], [place] Glucose [Mass/Vol] 283 mg/dL High 70 - 100 mg/dL [place] Comment on above: Test performed by gl ucose meter. Results may be 10%-15% lower than serum/plasma values. (CLIA ID [id number]) Interpretation and review of laboratory results Abnormal [place] Test Performed by [facility], [address] [place], [place] [address] [place] Glucose [Mass/Vol] 337 mg/dL High 70 - 100 mg/dL [place] Comment on above: Test performed by gl ucose meter. Results may be 10%-15% lower than serum/plasma values. (CLIA ID [id number]) Interpretation and review of laboratory results Abnormal [place] Test Performed by [facility], [address] [place], [place] [address] [place] Vancomycin Troughon 12-20-20 20 Vancomycin Trough 11.8 ug/mL Low 15.0-20.0 [facility] Comment on above: Result Comment: . Performed By: #### H EMDF, LIPA4, CMP3 #### [facility] [address] [place] [address] Vancomycin, Troughon 12-20-2 020 Interpretation and review of laboratory results Abnormal [place] Vancomycin Tr 11.8 ug/mL Low 15 - 20 ug/mL [place] Comment on above: . Test Performed by [facility], [address] [place], [place] [address] [place] CBC Auto Differentialon 06-19 Absolute Baso # 0.1 10*3/uL 0 - 0.2 10*3/uL [place] Absolute Neut # 6.6 10*3/uL 1.8 - 7 10*3/uL [place] Basophils/100 WBC (Bld) 1.0 % 0 - 2 % [place] Eosinophils (Bld) [#/Vol] 0.2 10*3/uL 0 - 0.5 10*3/uL [place] Eosinophils/100 WBC (Bld) 2.4 % 1 - 6 % [place] Erythrocyte distribution width (RBC) [Ratio] 17.0 % High 11.5 - 14.5 % [place] Granulocytes/100 WBC (Bld) 70.0 % 40 - 80 % [place] Hematocrit (Bld) [Volume fraction] 36.9 % Low 40 - 52 % [place] Hemoglobin (Bld) [Mass/Vol] 11.8 g/dL Low 13 - 18 g/dL [place] Interpretation and review of laboratory results Abnormal [place] Lymphocytes (Bld) [#/Vol] 1.8 10*3/uL 1 - 4.3 10*3/uL [place] Lymphocytes/100 WBC (Bld) 18.7 % Low 20 - 40 % [place] MCH (RBC) [Entitic mass] 25.8 pg Low 26 - 34 pg [place] MCHC (RBC) [Mass/Vol] 32.1 % 32 - 36 % [place], [place] MCV (RBC) [Entitic vol] 80.3 fL 80 - 98 fL [place] Monocytes (Bld) [#/Vol] 0.7 10*3/uL 0 - 0.8 10*3/uL [place] Monocytes/100 WBC (Bld) 7.9 % 2 - 10 % [place] Platelet mean volume (Bld) [Entitic vol] 9.1 fL 7.4 - 10.4 fL [place] Platelets (Bld) [#/Vol] 237 10*3/uL 140 - 440 10*3/uL [place] RBC (Bld) [#/Vol] 4.60 10*6/uL 4.4 - 5.9 10*6/uL [place] WBC (Bld) [#/Vol] 9.4 10*3/uL 3.6 - 10.7 10*3/uL [place] Test Performed by [facility], [address], [place], [place] [address] [facility] CULT/STAIN - AEROBIC AND FLIP EROBICon 07-07-2020 CULT/STAIN - AEROBIC AND ANAEROBIC STAIN GRAM --> Status: F Many polymorphonuclear cells/lpf. Moderate gram positive cocci in clusters. Moderate gram positive cocci in clusters. CULTURE ANAEROBE --> Status: F No growth of anaerobes at 5 days. 1 Organism Staphylococcus aureus Many Methicillin-resistant Staphylococcus aureus(MRSA) ------ 1 Organism ------ Antibiotic Result Intrp ------ Nafcillin/Oxacillin(LONNY) >= 4 R Inducible Clindamycin Resistant(LONNY)Neg Neg Clindamycin(LONNY) 0.25 S Vancomycin(LONNY) 1 S Trimeth/Sulfa(LONNY) <= 10 S Linezolid(LONNY) 2 S Daptomycin(LONNY) 0.5 S Gentamicin(LONNY) <= 0.5 S Doxycycline(LONNY) <= 0.5 S Tigecycline(LONNY) <= 0.12 S Rifampin(LONNY) <= 0.5 S Normal [place] [employer] Comment on above: Performed By: #### H EMDF, LIPA4, CMP3 #### [facility] [address] [place] [address] Comp Metabolic Panelon 07-07 ALT [Catalytic activity/Vol] 10 U/L Normal 0-49 [place] [employer] [facility] Comment on above: Result Comment: The ALT test is performed by an updated assay method. Please note that the reference intervals have been changed and are now sex specific. Performed By: #### H EMDF, LIPA4, CMP3 #### [facility] [address] [place] [address] Calcium [Mass/Vol] 8.8 mg/dL Normal 8.4-10.4 [facility] Comment on above: Performed By: #### H EMDF, LIPA4, CMP3 #### [facility] [address] [place] [address] ALP [Catalytic activity/Vol] 77 U/L Normal 38-126 [facility] Comment on above: Performed By: #### H EMDF, LIPA4, CMP3 #### [facility] [address] [place] [address] Anion gap [Moles/Vol] 8 Normal [facility] Comment on above: Performed By: #### H EMDF, LIPA4, CMP3 #### [facility] [address] [place] [address] AST [Catalytic activity/Vol] 25 U/L Normal 15-46 [facility] Comment on above: Performed By: #### H EMDF, LIPA4, CMP3 #### [facility] [address] [place] [address] Bilirubin [Mass/Vol] 0.5 mg/dL Normal 0.2-1.3 [facility] Comment on above: Performed By: #### H EMDF, LIPA4, CMP3 #### [facility] [address] [place] [address] CO2 [Moles/Vol] 23 mmol/L Normal 22-30 [facility] Comment on above: Performed By: #### H EMDF, LIPA4, CMP3 #### [facility] [address] [place] [address] Creatinine [Mass/Vol] 0.51 mg/dL Low 0.52-1.25 [facility] Comment on above: Performed By: #### H EMDF, LIPA4, CMP3 #### [facility] [address] [place] [address] GFR/1.73 sq M predicted among blacks MDRD (S/P/Bld) [Vol rate/Area] mL/min/{1.73_m2} Normal >60 [facility] Comment on above: Performed By: #### H EMDF, LIPA4, CMP3 #### [facility] [address] [place] [address] GFR/1.73 sq M predicted among non-blacks MDRD (S/P/Bld) [Vol rate/Area] mL/min/{1.73_m2} Normal >60 [facility] Comment on above: Result Comment: KDIG O guidelines provide the following GFR categories: Stage GFR(ml/min/1.73 m2) Terms G1 >=90 Normal or high G2 60-89 Mildly decreased* G3a 45-59 Mildly to moderately decreased G3b 30-44 Moderately to severely decreased G4 15-29 Severely decreased G5 <15 Kidney failure *Relative to young adult level. In the absence of evidence of kidney damage, neither GFR category G1 nor G2 fulfill the criteria for CKD. The CKD-EPI equation is validated in individuals 18 years of age and older. Currently the best equation for estimating glomerular filtration rate (GFR) from serum creatinine in children is the Bedside Harkins equation. It is less accurate in patients with extremes of muscle mass, restriction of dietary protein, ingestion of creatine, extra-renal metabolism of creatinine, or treatment with medications that affect renal tubular creatinine secretion. Performed By: #### H EMDF, LIPA4, CMP3 #### [facility] [address] [place] [address] Glucose [Mass/Vol] 325 mg/dL High 70-100 [facility] Comment on above: Performed By: #### H EMDF, LIPA4, CMP3 #### [facility] [address] [place] [address] Protein [Mass/Vol] 6.4 g/dL Normal 6.3-8.2 [facility] Comment on above: Performed By: #### H EMDF, LIPA4, CMP3 #### [facility] [address] [place] [address] Urea nitrogen [Mass/Vol] 11 mg/dL Normal 7-20 [facility] Comment on above: Performed By: #### H EMDF, LIPA4, CMP3 #### [facility] [address] [place] [address] Potassium [Moles/Vol] 4.5 mmol/L Normal 3.5-5.1 [facility] Comment on above: Performed By: #### H EMDF, LIPA4, CMP3 #### [facility] [address] [place] [address] Sodium [Moles/Vol] 132 mmol/L Low 135-145 [facility] Comment on above: Performed By: #### H EMDF, LIPA4, CMP3 #### [facility] [address] [place] [address] Albumin [Mass/Vol] 3.4 g/dL Low 3.5-5.0 [facility] Comment on above: Performed By: #### H EMDF, LIPA4, CMP3 #### [facility] [address] [place] [address] Chloride [Moles/Vol] 101 mmol/L Normal 98-107 [facility] Comment on above: Performed By: #### H EMDF, LIPA4, CMP3 #### [facility] [address] [place] [address] Comprehensive Metabolic Pane con 07-07-2020 Albumin [Mass/Vol] 3.4 g/dL Low 3.5 - 5 g/dL [place] ALP [Catalytic activity/Vol] 77 U/L 38 - 126 U/L [place] ALT [Catalytic activity/Vol] 10 U/L 0 - 49 U/L [place] Comment on above: The ALT test is perf ormed by an updated assay method. Please note that the reference intervals have been changed and are now sex specific. Anion gap [Moles/Vol] 8 mmol/L [place] AST [Catalytic activity/Vol] 25 U/L 15 - 46 U/L [place] Bilirubin Ql (U) 0.5 mg/dL 0.2 - 1.3 mg/dL [place] Calcium [Mass/Vol] 8.8 mg/dL 8.4 - 10. 4 mg/dL [place] Chloride [Moles/Vol] 101 mmol/L 98 - 10 7 mmol/L [place] CO2 [Moles/Vol] 23 mmol/L 22 - 30 mmol/L [place] Creatinine [Mass/Vol] 0.51 mg/dL Low 0.52 - 1.25 mg/dL [place] EGFR IF NonAfrican [place]ian >90.0 >60 mL/min [place] Comment on above: KDIGO guidelines pro vide the following GFR categories: Stage GFR(ml/min/1.73 m2) Terms G1 >=90 Normal or high G2 60-89 Mildly decreased* G3a 45-59 Mildly to moderately decreased G3b 30-44 Moderately to severely decreased G4 15-29 Severely decreased G5 <15 Kidney failure *Relative to young adult level. In the absence of evidence of kidney damage, neither GFR category G1 nor G2 fulfill the criteria for CKD. The CKD-EPI equation is validated in individuals 18 years of age and older. Currently the best equation for estimating glomerular filtration rate (GFR) from serum creatinine in children is the Bedside Harkins equation. It is less accurate in patients with extremes of muscle mass, restriction of dietary protein, ingestion of creatine, extra-renal metabolism of creatinine, or treatment with medications that affect renal tubular creatinine secretion. GFR/1.73 sq M predicted among blacks MDRD (S/P/Bld) [Vol rate/Area] mL/min/{1.73_m2} >60 mL/min [place] Glucose [Mass/Vol] 325 mg/dL High 70 - 100 mg/dL [place] Interpretation and review of laboratory results Abnormal [place] Potassium [Moles/Vol] 4.5 mmol/L 3.5 - 5.1 mmol/L [place] Protein [Mass/Vol] 6.4 g/dL 6.3 - 8.2 g/dL [place] Sodium [Moles/Vol] 132 mmol/L Low 135 - 145 mmol/L [place] Urea nitrogen [Mass/Vol] 11 mg/dL 7 - 20 mg/dL [place] Test Performed by [facility], [address], [place], [place] [address] [place] Culture, Anaerobic and Aerob icon 07-07-2020 Aerobic Culture Staphylococcus aureus Abnormal [place] Anaerobic Culture No growth of anaerob es at 5 days. [place] INR Coag (Bld) [Relative time] Many polymorphonuclear cells/lpf. Moderate gram positive cocci in clusters. [place] INR Coag (Bld) [Relative time] Many Methicillin-resistant Staphylococcus aureus(MRSA) [place] Interpretation and review of laboratory results Abnormal [place] Test Performed by [facility], [address] [place], [place] [address], [place] [address] [place] Hemogram w/ Autodiffon 07-07 Abs Baso Cnt 0.1 10*3/uL Normal 0.0-0.2 [facility] Comment on above: Performed By: #### H EMDF, LIPA4, CMP3 #### [facility] [address] [place] [address] Abs Neutrophile Cnt 6.6 10*3/uL Normal 1.8-7.0 [facility] Comment on above: Performed By: #### H EMDF, LIPA4, CMP3 #### [facility] [address] [place] [address] Basophils/100 WBC (Bld) 1.0 % Normal 0.0-2.0 [facility] Comment on above: Performed By: #### H EMDF, LIPA4, CMP3 #### [facility] [address] [place] [address] Eosinophils (Bld) [#/Vol] 0.2 10*3/uL Normal 0.0-0.5 [facility] Comment on above: Performed By: #### H EMDF, LIPA4, CMP3 #### [facility] [address] [place] [address] Eosinophils/100 WBC (Bld) 2.4 % Normal 1.0-6.0 [facility] Comment on above: Performed By: #### H EMDF, LIPA4, CMP3 #### [place] [employer] [facility] [address] [place] [address] Erythrocyte distribution width (RBC) [Ratio] 17.0 % High 11.5-14.5 [facility] Comment on above: Performed By: #### H EMDF, LIPA4, CMP3 #### [facility] [address] [place] [address] Granulocytes/100 WBC (Bld) 70.0 % Normal 40.0-80.0 [facility] Comment on above: Performed By: #### H EMDF, LIPA4, CMP3 #### [facility] [address] [place] [address] Hematocrit (Bld) [Volume fraction] 36.9 % Low 40.0-52.0 [facility] Comment on above: Performed By: #### H EMDF, LIPA4, CMP3 #### [facility] [address] [place] [address] Hemoglobin (Bld) [Mass/Vol] 11.8 g/dL Low 13.0-18.0 [facility] Comment on above: Performed By: #### H EMDF, LIPA4, CMP3 #### [facility] [address] [place] [address] Lymphocytes (Bld) [#/Vol] 1.8 10*3/uL Normal 1.0-4.3 [facility] Comment on above: Performed By: #### H EMDF, LIPA4, CMP3 #### [facility] [address] [place] [address] Lymphocytes/100 WBC (Bld) 18.7 % Low 20.0-40.0 [facility] Comment on above: Performed By: #### H EMDF, LIPA4, CMP3 #### [facility] [address] [place] [address] MCH (RBC) [Entitic mass] 25.8 pg Low 26.0-34.0 [facility] Comment on above: Performed By: #### H EMDF, LIPA4, CMP3 #### [facility] [address] [place] [address] MCHC (RBC) [Mass/Vol] 32.1 % Normal 32.0-36.0 [facility] Comment on above: Performed By: #### H EMDF, LIPA4, CMP3 #### [facility] [address] [place] [address] MCV (RBC) [Entitic vol] 80.3 fL Normal 80.0-98.0 [facility] Comment on above: Performed By: #### H EMDF, LIPA4, CMP3 #### [facility] [address] [place] [address] Monocytes (Bld) [#/Vol] 0.7 10*3/uL Normal 0.0-0.8 [facility] Comment on above: Performed By: #### H EMDF, LIPA4, CMP3 #### [facility] [address] [place] [address] Monocytes/100 WBC (Bld) 7.9 % Normal 2.0-10.0 [facility] Comment on above: Performed By: #### H EMDF, LIPA4, CMP3 #### [facility] [address] [place] [address] Platelet mean volume (Bld) [Entitic vol] 9.1 fL Normal 7.4-10.4 [facility] Comment on above: Performed By: #### H EMDF, LIPA4, CMP3 #### [facility] [address] [place] [address] Platelets (Bld) [#/Vol] 237 10*3/uL Normal 140-440 [facility] Comment on above: Performed By: #### H EMDF, LIPA4, CMP3 #### [facility] [address] [place] [address] RBC (Bld) [#/Vol] 4.60 10*6/uL Normal 4.40-5.90 [facility] Comment on above: Performed By: #### H EMDF, LIPA4, CMP3 #### [facility] [address] [place] [address] WBC (Bld) [#/Vol] 9.4 10*3/uL Normal 3.6-10.7 [facility] Comment on above: Performed By: #### H EMDF, LIPA4, CMP3 #### [facility] [address] [place] [address] POCT Glucoseon 07-07-2020 Glucose [Mass/Vol] 323 mg/dL High 70 - 100 mg/dL [facility] Comment on above: Test performed by ucose meter. Results may be 10%-15% lower than serum/plasma values. (CLIA ID [id number]) Interpretation and review of laboratory results Abnormal [facility] Performed by [facility], [address] [place], [place] [address] [place] [address] [place] Glucose [Mass/Vol] 314 mg/dL High 70 - 100 mg/dL [facility] [place] [facility] Comment on above: Test performed by gl ucose meter. Results may be 10%-15% lower than serum/plasma values. (CLIA ID [id number]) Interpretation and review of laboratory results Abnormal [facility] [place] [facility] Test Performed by [facility], [address] [place] [address] [facility] [place] [facility] Glucose [Mass/Vol] 357 mg/dL High 70 - 100 mg/dL [facility] [place] [facility] Comment on above: Test performed by gl ucose meter. Results may be 10%-15% lower than serum/plasma values. (CLIA ID [id number]) Interpretation and review of laboratory results Abnormal [facility] [place] [facility] Test Performed by [facility], [address] [place], [place] [address] [place] [address]- [place], [place] Glucose [Mass/Vol] 319 mg/dL High 70 - 100 mg/dL [facility] [place], [place] Comment on above: Test performed by gl ucose meter. Results may be 10%-15% lower than serum/plasma values. (CLIA ID [id number]) Interpretation and review of laboratory results Abnormal [facility] [place] [facility] Test Performed by [facility], [address] [place], [place] [address] [place] [address], [place] CBC Auto Differentialon 12- Absolute Baso # 0.1 10*3/uL 0 - 0.2 10*3/uL [facility], [place] Absolute Neut # 3.7 10*3/uL 1.8 - 7 10*3/uL [facility], [place] Basophils/100 WBC (Bld) 1.4 % 0 - 2 % [facility], [place] Eosinophils (Bld) [#/Vol] 0.4 10*3/uL 0 - 0.5 10*3/uL [facility] Eosinophils/100 WBC (Bld) 6.4 % High 1 - 6 % [facility] [place] [employer] Erythrocyte distribution width (RBC) [Ratio] 17.2 % High 11.5 - 14.5 % [place] Granulocytes/100 WBC (Bld) 56.3 % 40 - 80 % [place] Hematocrit (Bld) [Volume fraction] 32.1 % Low 40 - 52 % [place] Hemoglobin (Bld) [Mass/Vol] 10.3 g/dL Low 13 - 18 g/dL [place] Lymphocytes (Bld) [#/Vol] 1.8 10*3/uL 1 - 4.3 10*3/uL [place] Lymphocytes/100 WBC (Bld) 28.1 % 20 - 40 % [place] MCH (RBC) [Entitic mass] 25.7 pg Low 26 - 34 pg [place] MCHC (RBC) [Mass/Vol] 32.0 % 32 - 36 % [place] MCV (RBC) [Entitic vol] 80.3 fL 80 - 98 fL [place] Monocytes (Bld) [#/Vol] 0.5 10*3/uL 0 - 0.8 10*3/uL [place] Monocytes/100 WBC (Bld) 7.8 % 2 - 10 % [place] Platelet mean volume (Bld) [Entitic vol] 8.7 fL 7.4 - 10.4 fL [place] Platelets (Bld) [#/Vol] 189 10*3/uL 140 - 440 10*3/uL [place] RBC (Bld) [#/Vol] 3.99 10*6/uL Low 4.4 - 5.9 10*6/uL [place] WBC (Bld) [#/Vol] 6.6 10*3/uL 3.6 - 10.7 10*3/uL [place] Comp Metabolic Panelon 07-06 ALP [Catalytic activity/Vol] 61 U/L Normal 38-126 [facility] Comment on above: Performed By: #### C UA2 #### [facility] [address] [place] [address] ALT [Catalytic activity/Vol] 6 U/L Normal 0-49 [facility] Comment on above: Result Comment: The ALT test is performed by an updated assay method. Please note that the reference intervals have been changed and are now sex specific. Performed By: #### C UA2 #### [facility] [address] [place] [address] Anion gap [Moles/Vol] 3 Normal [facility] Comment on above: Performed By: #### C UA2 #### [facility] [address] [place] [address] AST [Catalytic activity/Vol] 20 U/L Normal 15-46 [facility] Comment on above: Performed By: #### C UA2 #### [facility] [address] [place] [address] Bilirubin [Mass/Vol] 0.3 mg/dL Normal 0.2-1.3 [facility] Comment on above: Performed By: #### C UA2 #### [facility] [address] [place] [address] Calcium [Mass/Vol] 7.6 mg/dL Low 8.4-10.4 [facility] Comment on above: Performed By: #### C UA2 #### [facility] [address] [place] [address] CO2 [Moles/Vol] 26 mmol/L Normal 22-30 [facility] Comment on above: Performed By: #### C UA2 #### [place] [address] [place] [address] Creatinine [Mass/Vol] 0.44 mg/dL Low 0.52-1.25 [facility] Comment on above: Performed By: #### C UA2 #### [facility] [address] [place] [address] GFR/1.73 sq M predicted among blacks MDRD (S/P/Bld) [Vol rate/Area] mL/min/{1.73_m2} Normal >60 [facility] Comment on above: Performed By: #### C UA2 #### [facility] [address] [place] [address] GFR/1.73 sq M predicted among non-blacks MDRD (S/P/Bld) [Vol rate/Area] mL/min/{1.73_m2} Normal >60 [facility] Comment on above: Result Comment: KDIG O guidelines provide the following GFR categories: Stage GFR(ml/min/1.73 m2) Terms G1 >=90 Normal or high G2 60-89 Mildly decreased* G3a 45-59 Mildly to moderately decreased G3b 30-44 Moderately to severely decreased G4 15-29 Severely decreased G5 <15 Kidney failure *Relative to young adult level. In the absence of evidence of kidney damage, neither GFR category G1 nor G2 fulfill the criteria for CKD. The CKD-EPI equation is validated in individuals 18 years of age and older. Currently the best equation for estimating glomerular filtration rate (GFR) from serum creatinine in children is the Bedside Harkins equation. It is less accurate in patients with extremes of muscle mass, restriction of dietary protein, ingestion of creatine, extra-renal metabolism of creatinine, or treatment with medications that affect renal tubular creatinine secretion. Performed By: #### C UA2 #### [facility] [address] [place] [address] Glucose [Mass/Vol] 145 mg/dL High 70-100 [facility] Comment on above: Performed By: #### C UA2 #### [facility] [address] [place] [address] Protein [Mass/Vol] 5.6 g/dL Low 6.3-8.2 [facility] Comment on above: Performed By: #### C UA2 #### [facility] [address] [place] [address] Urea nitrogen [Mass/Vol] 4 mg/dL Low 7-20 [facility] Comment on above: Performed By: #### C UA2 #### [facility] [address] [place] [address] Potassium [Moles/Vol] 3.7 mmol/L Normal 3.5-5.1 [facility] Comment on above: Performed By: #### C UA2 #### [facility] [address] [place] [address] Albumin [Mass/Vol] 2.9 g/dL Low 3.5-5.0 [facility] Comment on above: Performed By: #### C UA2 #### [facility] [address] [place] [address] Chloride [Moles/Vol] 108 mmol/L High 98-107 [facility] Comment on above: Performed By: #### C UA2 #### [facility] [address] [place] [address] Sodium [Moles/Vol] 137 mmol/L Normal 135-145 [facility] Comment on above: Performed By: #### C UA2 #### [facility] [address] [place] [address] Comprehensive Metabolic Pane con 07-06-2020 Albumin [Mass/Vol] 2.9 g/dL Low 3.5 - 5 g/dL [place], [place] ALP [Catalytic activity/Vol] 61 U/L 38 - 126 U/L [place], [place] ALT [Catalytic activity/Vol] 6 U/L 0 - 49 U/L [place] Comment on above: The ALT test is perf ormed by an updated assay method. Please note that the reference intervals have been changed and are now sex specific. Anion gap [Moles/Vol] 3 mmol/L [place], [place] AST [Catalytic activity/Vol] 20 U/L 15 - 46 U/L [place] Bilirubin Ql (U) 0.3 mg/dL 0.2 - 1.3 mg/dL [place] Calcium [Mass/Vol] 7.6 mg/dL Low 8.4 - 10. 4 mg/dL [place] Chloride [Moles/Vol] 108 mmol/L High 98 - 10 7 mmol/L [place] CO2 [Moles/Vol] 26 mmol/L 22 - 30 mmol/L [place] Creatinine [Mass/Vol] 0.44 mg/dL Low 0.52 - 1.25 mg/dL [place] EGFR IF NonAfrican Cambodian >90.0 >60 mL/min [place] Comment on above: KDIGO guidelines pro vide the following GFR categories: Stage GFR(ml/min/1.73 m2) Terms G1 >=90 Normal or high G2 60-89 Mildly decreased* G3a 45-59 Mildly to moderately decreased G3b 30-44 Moderately to severely decreased G4 15-29 Severely decreased G5 <15 Kidney failure *Relative to young adult level. In the absence of evidence of kidney damage, neither GFR category G1 nor G2 fulfill the criteria for CKD. The CKD-EPI equation is validated in individuals 18 years of age and older. Currently the best equation for estimating glomerular filtration rate (GFR) from serum creatinine in children is the Bedside Harkins equation. It is less accurate in patients with extremes of muscle mass, restriction of dietary protein, ingestion of creatine, extra-renal metabolism of creatinine, or treatment with medications that affect renal tubular creatinine secretion. GFR/1.73 sq M predicted among blacks MDRD (S/P/Bld) [Vol rate/Area] mL/min/{1.73_m2} >60 mL/min [place] Glucose [Mass/Vol] 145 mg/dL High 70 - 100 mg/dL [place] Potassium [Moles/Vol] 3.7 mmol/L 3.5 - 5.1 mmol/L [place] Protein [Mass/Vol] 5.6 g/dL Low 6.3 - 8.2 g/dL [place] Sodium [Moles/Vol] 137 mmol/L 135 - 145 mmol/L [place] Urea nitrogen [Mass/Vol] 4 mg/dL Low 7 - 20 mg/dL [place] Glucose,Bedsideon 07-06-2020 Glucose [Mass/Vol] 96 mg/dL Normal 70-100 [facility] Comment on above: Result Comment: Test performed by glucose meter. Results may be 10%-15% lower than serum/plasma values. (CLIA ID [id number]) Performed By: #### C UA2 #### [facility] [address] [place] [address] Glucose [Mass/Vol] 121 mg/dL High 70-100 [facility] Comment on above: Result Comment: Test performed by glucose meter. Results may be 10%-15% lower than serum/plasma values. (CLIA ID [id number]) Performed By: #### C UA2 #### [facility] [address] [place] [address] Hemogram w/ Autodiffon 07-06 Abs Baso Cnt 0.1 10*3/uL Normal 0.0-0.2 [facility] Comment on above: Performed By: #### C UA2 #### [facility] [address] [place] [address] Abs Neutrophile Cnt 3.7 10*3/uL Normal 1.8-7.0 [facility] Comment on above: Performed By: #### C UA2 #### [facility] [address] [place] [address] Basophils/100 WBC (Bld) 1.4 % Normal 0.0-2.0 [facility] Comment on above: Performed By: #### C UA2 #### [facility] [address] [place] [address] Eosinophils (Bld) [#/Vol] 0.4 10*3/uL Normal 0.0-0.5 [facility] Comment on above: Performed By: #### C UA2 #### [facility] [address] [place] [address] Eosinophils/100 WBC (Bld) 6.4 % High 1.0-6.0 [facility] Comment on above: Performed By: #### C UA2 #### [facility] [address] [place] [address] Erythrocyte distribution width (RBC) [Ratio] 17.2 % High 11.5-14.5 [facility] Comment on above: Performed By: #### C UA2 #### [facility] [address] [place] [address] Granulocytes/100 WBC (Bld) 56.3 % Normal 40.0-80.0 [facility] Comment on above: Performed By: #### C UA2 #### [facility] [address] [place] [address] Hematocrit (Bld) [Volume fraction] 32.1 % Low 40.0-52.0 [facility] Comment on above: Performed By: #### C UA2 #### [facility] [address] [place] [address] Hemoglobin (Bld) [Mass/Vol] 10.3 g/dL Low 13.0-18.0 [facility] Comment on above: Performed By: #### C UA2 #### [facility] [address] [place] [address] Lymphocytes (Bld) [#/Vol] 1.8 10*3/uL Normal 1.0-4.3 [facility] Comment on above: Performed By: #### C UA2 #### [facility] [address] [place] [address] Lymphocytes/100 WBC (Bld) 28.1 % Normal 20.0-40.0 [facility] Comment on above: Performed By: #### C UA2 #### [facility] [address] [place] [address] MCH (RBC) [Entitic mass] 25.7 pg Low 26.0-34.0 [facility] Comment on above: Performed By: #### C UA2 #### [facility] [address] [place] [address] MCHC (RBC) [Mass/Vol] 32.0 % Normal 32.0-36.0 [facility] Comment on above: Performed By: #### C UA2 #### [facility] [address] [place] [address] MCV (RBC) [Entitic vol] 80.3 fL Normal 80.0-98.0 [facility] Comment on above: Performed By: #### C UA2 #### [facility] [address] [place] [address] Monocytes (Bld) [#/Vol] 0.5 10*3/uL Normal 0.0-0.8 [facility] Comment on above: Performed By: #### C UA2 #### [facility] [address] [place] [address] Monocytes/100 WBC (Bld) 7.8 % Normal 2.0-10.0 [facility] Comment on above: Performed By: #### C UA2 #### [place] [address] [place] [address] Platelet mean volume (Bld) [Entitic vol] 8.7 fL Normal 7.4-10.4 [facility] Comment on above: Performed By: #### C UA2 #### [place] [address] [place] [address] Platelets (Bld) [#/Vol] 189 10*3/uL Normal 140-440 [facility] Comment on above: Performed By: #### C UA2 #### [facility] [address] [place] [address] RBC (Bld) [#/Vol] 3.99 10*6/uL Low 4.40-5.90 [facility] Comment on above: Performed By: #### C UA2 #### [facility] [address] [place] [address] WBC (Bld) [#/Vol] 6.6 10*3/uL Normal 3.6-10.7 [facility] Comment on above: Performed By: #### C UA2 #### [facility] [address] [place] [address] MRI Lower Extremity Left WO JT WO Contraston 07-06-2020 [facility] [place] Incoming Radiology Results From [facility] 07/06/2020 7:28 AM EST Patient Name: TORI CANTOR Magnetic Resonance Imaging ACCESSION EXAM DATE/TIME PROCEDURE ORDERING PROVIDER [id number] 07/05/2020 15:50 EST MRI Low Ext Non Joint w/ MO LUIS P o Contrast Left CPT code 46934 Reason For Exam (MRI Low Ext Non Joint w/o Contrast Left) osteomyelitis Report Examination: MRI left lower extremity Clinical Indication: osteomyelitis Comparison: X-ray 07/04/2020 Findings: Multiplanar multisequence high field strength MRI images obtained through the left lower extremity which includes the knee and tibia and fibula. Examination performed without contrast. 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 There is some susceptibility artifact from surgical changes at the stump. There is a small ulceration, wound tract laterally just anterior to the fibula and best seen on series 601 image 21. The wound tract extends down to the distal fibula. There is a trace amount of superficial surface enhancement along the tip of the fibula extending posteriorly for approximately 1.5 cm along the cortex only and suggesting very early surface osteomyelitis. There is surrounding soft tissue inflammation. There is intramuscular edema likely infectious myositis within the lateral margin of the soleus. No discrete fluid collection to suggest abscess. Area of muscular involvement measures up to 4.5 cm cranial to caudal, 2.8 cm anterior to posterior and 4.6 cm medial to lateral. Trace amount of peroneal muscular edema also seen. There is some soft tissue edema at the stump posteriorly concerning for cellulitis. No sizable bursal fluid collection. There is suggestion of a early abscess, phlegmon and and the tip of the fibula measuring up to 0.6 cm and seen on series 1101 image 15. The tibia also demonstrates a trace amount of cortical surface edema along the distal 3.5 cm. No evidence of deep osseous infection. Small knee joint effusion. Impression: Magnetic Resonance Imaging Report 1. Left below the knee amputation. 2. Soft tissue ulceration and deep wound tract seen along the lateral aspect of the stump just anterior to the fibula and extending down to the fibular terminus. Trace amount of very mild surface osseous edema along the distal 1.5 cm of fibula and distal 3.5 cm of tibia concerning for surface osteomyelitis. No evidence of Robert's abscess or more deep osseous infection. 3. Muscular edema moderate in severity along the lateral margin of the soleus with trace amount of peroneal edema. Findings concerning for infectious myositis given the adjacent wound tract. Suggestion of tiny early abscess/phlegmon at the tip of the fibula incompletely characterized without gadolinium contrast. This measures up to 0.6 cm. Report Dictated on Workstation: [id number] --- Final --- Dictating Physician: MD ZAMORA ANTHONY J Signed Date and Time: 07/06/2020 7:26 am Signed by: MD ZAMORA ANTHONY J Transcribed Date and Time: 07/06/2020 7:27 [place], [place] Patient Name: TORI CANTOR Magnetic Resonance Imaging ACCESSION EXAM DATE/TIME PROCEDURE ORDERING PROVIDER [id number] 07/05/2020 15:50 EST MRI Low Ext Non Joint w/ MO LUIS P o Contrast Left CPT code 93658 Reason For Exam (MRI Low Ext Non Joint w/o Contrast Left) osteomyelitis Report Examination: MRI left lower extremity Clinical Indication: osteomyelitis Comparison: X-ray 07/04/2020 Findings: Multiplanar multisequence high field strength MRI images obtained through the left lower extremity which includes the knee and tibia and fibula. Examination performed without contrast. 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 There is some susceptibility artifact from surgical changes at the stump. There is a small ulceration, wound tract laterally just anterior to the fibula and best seen on series 601 image 21. The wound tract extends down to the distal fibula. There is a trace amount of superficial surface enhancement along the tip of the fibula extending posteriorly for approximately 1.5 cm along the cortex only and suggesting very early surface osteomyelitis. There is surrounding soft tissue inflammation. There is intramuscular edema likely infectious myositis within the lateral margin of the soleus. No discrete fluid collection to suggest abscess. Area of muscular involvement measures up to 4.5 cm cranial to caudal, 2.8 cm anterior to posterior and 4.6 cm medial to lateral. Trace amount of peroneal muscular edema also seen. There is some soft tissue edema at the stump posteriorly concerning for cellulitis. No sizable bursal fluid collection. There is suggestion of a early abscess, phlegmon and and the tip of the fibula measuring up to 0.6 cm and seen on series 1101 image 15. The tibia also demonstrates a trace amount of cortical surface edema along the distal 3.5 cm. No evidence of deep osseous infection. Small knee joint effusion. Impression: Magnetic Resonance Imaging Report 1. Left below the knee amputation. 2. Soft tissue ulceration and deep wound tract seen along the lateral aspect of the stump just anterior to the fibula and extending down to the fibular terminus. Trace amount of very mild surface osseous edema along the distal 1.5 cm of fibula and distal 3.5 cm of tibia concerning for surface osteomyelitis. No evidence of Robert's abscess or more deep osseous infection. 3. Muscular edema moderate in severity along the lateral margin of the soleus with trace amount of peroneal edema. Findings concerning for infectious myositis given the adjacent wound tract. Suggestion of tiny early abscess/phlegmon at the tip of the fibula incompletely characterized without gadolinium contrast. This measures up to 0.6 cm. Report Dictated on Workstation: [id number] --- Final --- Dictating Physician: MD ZAMORA ANTHONY J Signed Date and Time: 07/06/2020 7:26 am Signed by: MD ZAMORA ANTHONY J Transcribed Date and Time: 07/06/2020 7:27 [facility], [place] Op Noteon 07-06-2020 Op Note PATIENT: ASH CANTOR ADMISSION DATE: 07/04/2020 SURGERY DATE: 07/06/2020 DATE OF : 1975 AGE: 45 ADMITTING PHYSICIAN: Phil Lee MD ATTENDING PHYSICIAN: Mo Luis MD DICTATING PHYSICIAN: Mo Luis MD OPERATIVE RECORD PROCEDURE: REVISION AMPUTATION, LEFT BKA STUMP WITH IRRIGATION, DEBRIDEMENT OF SKIN, SUBCUTANEOUS TISSUE, MUSCLE AND BONE. PREOPERATIVE DIAGNOSIS: Osteomyelitis with infected left below-knee amputation stump. POSTOPERATIVE DIAGNOSIS: Osteomyelitis with infected left below-knee amputation stump. ANESTHESIA: General. SOFTWARE SUPPORT TECHNICIAN: Jojo Pereira S.A. 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 MRI confirmed abscess and osteomyelitis. He presents for operative correction. OPERATIVE FINDINGS: The patient had a lateral draining sinus at his incision. He had a small pocket of purulence at the distal fibula. Both the fibula and the tibia showed surface osteomyelitis, both of these were shortened. DESCRIPTION OF PROCEDURE: The patient was brought to the operative room, placed under general anesthesia. The leg was sterilely prepped and draped in usual fashion, elevated and a thigh tourniquet was inflated. The patient's surgical incision was recreated including extending the incision further proximally on the fibular side to allow for proximal resection here. His draining sinus was ellipsed out. Bovie dissection was carried out through subcutaneous and scar tissue. Hemostasis was maintained throughout with the Bovie. Nonabsorbable sutures were removed as they were encountered. Once the subcutaneous tibia was identified and subperiosteal dissection with the Bovie was used to expose the tibia. Incision deep was made over the fibula with the Bovie and again this was opened. Both Bovie and elevator were used for circumferential resection. Subcutaneous tissue and deep scar tissues along with purulent material was harvested for culture. The fibula was transected in an angle with a saw, removing about 4 cm. Approximately 3 cm of tibia was removed. Once this was removed, an anterior chamfer cut was fashioned with the saw. Following the completion of this, the pulse lavage was used to place 6 L of solution of Ringer's lactate with pulse lavage. Following this, a liter of Betadine solution was used. Once this was completed, the tourniquet was deflated. The patient had slow blood return due to peripheral arterial disease, however, good bleeding and viable tissue was present at all levels. A myotenodesis was then performed using 0 Vicryl to bring posterior deep tissue over the shortened tibia. A 2-0 Vicryl was then used for subcutaneous. Prior to closure, a large Hemovac drain was placed through a stab incision and sutured in place. The skin vinh were applied followed by Xeroform, 4x4s, ABD, and a sterile compressive dressing. He was then awakened and returned to recovery room in stable condition without complication. Diskriter Job ID: [id number] Mo Luis MD DOD:07/06/2020 03:04 P SHARONA/jody DOT:07/06/2020 05:28 P Job Number: [id number] Document Number: [id number] Normal [facility] Otheron 07-06-2020 Interpretation and review of laboratory results Abnormal [place], [place] Test Performed by [facility], [address] [place], [place] [address] [place] POCT Glucoseon 07-06-2020 Glucose [Mass/Vol] 317 mg/dL High 70 - 100 mg/dL [place] Comment on above: Test performed by gl ucose meter. Results may be 10%-15% lower than serum/plasma values. (CLIA ID [id number]) Glucose [Mass/Vol] 112 mg/dL High 70 - 100 mg/dL [place] Comment on above: Test performed by gl ucose meter. Results may be 10%-15% lower than serum/plasma values. (CLIA ID [id number]) Glucose [Mass/Vol] 96 mg/dL 70 - 100 mg/dL [place] Comment on above: Test performed by gl ucose meter. Results may be 10%-15% lower than serum/plasma values. (CLIA ID [id number]) Glucose [Mass/Vol] 121 mg/dL High 70 - 100 mg/dL [place] Comment on above: Test performed by gl ucose meter. Results may be 10%-15% lower than serum/plasma values. (CLIA ID [id number]) Glucose [Mass/Vol] 108 mg/dL High 70 - 100 mg/dL [place] Comment on above: Test performed by ucose meter. Results may be 10%-15% lower than serum/plasma values. (CLIA ID [id number]) Vancomycin Troughon 12-18-20 20 Vancomycin Trough 9.4 ug/mL Low 15.0-20.0 [facility] Comment on above: Result Comment: . Performed By: #### C UA2 #### [facility] [address] [place] [address] Vancomycin Trough 27.6 ug/mL High 15.0-20.0 [facility] Comment on above: Result Comment: . Performed By: #### V ANCT #### [facility] [address] [place] [address] Vancomycin, Troughon 18-2 020 Vancomycin Tr 9.4 ug/mL Low 15 - 20 ug/mL [place] Comment on above: . Vancomycin Tr 27.6 ug/mL High 15 - 20 ug/mL [place] Comment on above: . CBC Auto Differentialon 06-19 Absolute Baso # 0.1 10*3/uL 0 - 0.2 10*3/uL [place] Absolute Neut # 5.0 10*3/uL 1.8 - 7 10*3/uL [place] Basophils/100 WBC (Bld) 0.8 % 0 - 2 % [place] Eosinophils (Bld) [#/Vol] 0.5 10*3/uL 0 - 0.5 10*3/uL [place] Eosinophils/100 WBC (Bld) 6.3 % High 1 - 6 % [place] Erythrocyte distribution width (RBC) [Ratio] 16.9 % High 11.5 - 14.5 % [place] Granulocytes/100 WBC (Bld) 57.4 % 40 - 80 % [place] Hematocrit (Bld) [Volume fraction] 37.3 % Low 40 - 52 % [place] Hemoglobin (Bld) [Mass/Vol] 12.1 g/dL Low 13 - 18 g/dL [place] Interpretation and review of laboratory results Abnormal [place] Lymphocytes (Bld) [#/Vol] 2.4 10*3/uL 1 - 4.3 10*3/uL [place] Lymphocytes/100 WBC (Bld) 27.8 % 20 - 40 % [place] MCH (RBC) [Entitic mass] 26.0 pg 26 - 34 pg [place] MCHC (RBC) [Mass/Vol] 32.5 % 32 - 36 % [place] MCV (RBC) [Entitic vol] 79.9 fL Low 80 - 98 fL [place] Monocytes (Bld) [#/Vol] 0.7 10*3/uL 0 - 0.8 10*3/uL [place] Monocytes/100 WBC (Bld) 7.7 % 2 - 10 % [place] Platelet mean volume (Bld) [Entitic vol] 8.8 fL 7.4 - 10.4 fL [place] Platelets (Bld) [#/Vol] 216 10*3/uL 140 - 440 10*3/uL [place] RBC (Bld) [#/Vol] 4.67 10*6/uL 4.4 - 5.9 10*6/uL [place] WBC (Bld) [#/Vol] 8.6 10*3/uL 3.6 - 10.7 10*3/uL [place] Test Performed by [facility], [address], [place], [place] [address] [place] Comp Metabolic Panelon 07-05 ALT [Catalytic activity/Vol] 8 U/L Normal 0-49 [facility] Comment on above: Result Comment: The ALT test is performed by an updated assay method. Please note that the reference intervals have been changed and are now sex specific. Performed By: #### H A1C2, HEMDF, PT, CMP3 #### [facility] [address] [place] [address] #### HCVQ #### [place] [address] [address] [facility], [place] Calcium [Mass/Vol] 8.9 mg/dL Normal 8.4-10.4 [facility] Comment on above: Performed By: #### H A1C2, HEMDF, PT, CMP3 #### [facility] [address] [place] [address] #### HCVQ #### [place] [address] [address] [facility], [place] Glucose [Mass/Vol] 177 mg/dL High 70-100 [facility] Comment on above: Performed By: #### H A1C2, HEMDF, PT, CMP3 #### [facility] [address] [place] [address] #### HCVQ #### [place] [address] [address] [facility] ALP [Catalytic activity/Vol] 78 U/L Normal 38-126 [facility] Comment on above: Performed By: #### H A1C2, HEMDF, PT, CMP3 #### [facility] [address] [place] [address] #### HCVQ #### [place] [address] [address] [facility] Anion gap [Moles/Vol] 3 Normal [facility] Comment on above: Performed By: #### H A1C2, HEMDF, PT, CMP3 #### [facility] [address] [place] [address] #### HCVQ #### [place] [address] [address] [facility], [place] AST [Catalytic activity/Vol] 25 U/L Normal 15-46 [facility] Comment on above: Performed By: #### H A1C2, HEMDF, PT, CMP3 #### [facility] [address] [place] [address] #### HCVQ #### [place] [address] [address] [facility], [place] Bilirubin [Mass/Vol] 0.3 mg/dL Normal 0.2-1.3 [facility] Comment on above: Performed By: #### H A1C2, HEMDF, PT, CMP3 #### [facility] [address] [place] [address] #### HCVQ #### [address] CO2 [Moles/Vol] 29 mmol/L Normal 22-30 [facility] Comment on above: Performed By: #### H A1C2, HEMDF, PT, CMP3 #### [facility] [address] [place] [address] #### HCVQ #### [place] [address] [place] [address] Creatinine [Mass/Vol] 0.52 mg/dL Normal 0.52-1.25 [facility] Comment on above: Performed By: #### H A1C2, HEMDF, PT, CMP3 #### [facility] [address] [place] [address] #### HCVQ #### [address] [address] GFR/1.73 sq M predicted among blacks MDRD (S/P/Bld) [Vol rate/Area] mL/min/{1.73_m2} Normal >60 [facility] Comment on above: Performed By: #### H A1C2, HEMDF, PT, CMP3 #### [place] [address] [place] [address] #### HCVQ #### [address] GFR/1.73 sq M predicted among non-blacks MDRD (S/P/Bld) [Vol rate/Area] mL/min/{1.73_m2} Normal >60 [facility] Comment on above: Result Comment: KDIG O guidelines provide the following GFR categories: Stage GFR(ml/min/1.73 m2) Terms G1 >=90 Normal or high G2 60-89 Mildly decreased* G3a 45-59 Mildly to moderately decreased G3b 30-44 Moderately to severely decreased G4 15-29 Severely decreased G5 <15 Kidney failure *Relative to young adult level. In the absence of evidence of kidney damage, neither GFR category G1 nor G2 fulfill the criteria for CKD. The CKD-EPI equation is validated in individuals 18 years of age and older. Currently the best equation for estimating glomerular filtration rate (GFR) from serum creatinine in children is the Bedside Harkins equation. It is less accurate in patients with extremes of muscle mass, restriction of dietary protein, ingestion of creatine, extra-renal metabolism of creatinine, or treatment with medications that affect renal tubular creatinine secretion. Performed By: #### H A1C2, HEMDF, PT, CMP3 #### [facility] [address] [place] [address] #### HCVQ #### [place] [address] [place] [address] Protein [Mass/Vol] 6.2 g/dL Low 6.3-8.2 [facility] Comment on above: Performed By: #### H A1C2, HEMDF, PT, CMP3 #### [place] [address] [place] [address] #### HCVQ #### [place] [address] [place] [address] Urea nitrogen [Mass/Vol] 10 mg/dL Normal 7-20 [facility] Comment on above: Performed By: #### H A1C2, HEMDF, PT, CMP3 #### [place] [address] [place] [address] #### HCVQ #### [address] [address] Potassium [Moles/Vol] 4.4 mmol/L Normal 3.5-5.1 [facility] [facility] Comment on above: Performed By: #### H A1C2, HEMDF, PT, CMP3 #### [place] [address] [place] [address] #### HCVQ #### [address] [address] Albumin [Mass/Vol] 3.5 g/dL Normal 3.5-5.0 [facility] Comment on above: Performed By: #### H A1C2, HEMDF, PT, CMP3 #### [place] [address] [place] [address] #### HCVQ #### [facility] [address] [place] [address] Chloride [Moles/Vol] 103 mmol/L Normal 98-107 [facility] Comment on above: Performed By: #### H A1C2, HEMDF, PT, CMP3 #### [facility] [address] [place] [address] #### HCVQ #### [facility] [address] [place] [address] Sodium [Moles/Vol] 135 mmol/L Normal 135-145 [facility] Comment on above: Performed By: #### H A1C2, HEMDF, PT, CMP3 #### [facility] [address] [place] [address] #### HCVQ #### [facility] [address] [place] [address] Complete Urinalysison 2019 Appearance (U) Clear Normal Clear [facility] Comment on above: Result Comment: . Performed By: #### H EMDF, LIPA4, CMP3 #### [facility] [address] [place] [address] Bilirubin,Urine Negative Normal Negative [facility] Comment on above: Result Comment: . Performed By: #### H EMDF, LIPA4, CMP3 #### [facility] [address] [place] [address] Color (U) Light-Yellow Normal Lt. Yellow [facility] Comment on above: Result Comment: . Performed By: #### H EMDF, LIPA4, CMP3 #### [facility] [address] [place] [address] Glucose Ql (U) > 1,000 Abnormal Normal (<70) [facility] Comment on above: Result Comment: . Performed By: #### H EMDF, LIPA4, CMP3 #### [facility] [address] [place] [address] Ketone,Urine Negative Normal Negative [facility] Comment on above: Result Comment: . Performed By: #### H EMDF, LIPA4, CMP3 #### [facility] [address] [place] [address] Leukocytes,Urine Negative Normal Negative [facility] Comment on above: Result Comment: . Performed By: #### H EMDF, LIPA4, CMP3 #### [facility] [address] [place] [address] Mucous Threads Few Normal Negative [facility] Comment on above: Result Comment: . Performed By: #### H EMDF, LIPA4, CMP3 #### [facility] [address] [place] [address] Nitrites,Urine Negative Normal Negative [facility] Comment on above: Result Comment: . Performed By: #### H EMDF, LIPA4, CMP3 #### [facility] [address] [place] [address] Occult Blood,Urine Negative Normal Negative [facility] Comment on above: Result Comment: . Performed By: #### H EMDF, LIPA4, CMP3 #### [facility] [address] [place] [address] pH (U) 5.5 Normal 5.0-8.0 [facility] Comment on above: Result Comment: . Performed By: #### H EMDF, LIPA4, CMP3 #### [facility] [address] [place] [address] Protein (U) [Mass/Vol] 20 mg/dL Abnormal Negative [facility] Comment on above: Result Comment: . Performed By: #### H EMDF, LIPA4, CMP3 #### [facility] [address] [place] [address] RBC LM.HPF (Urine sed) [#/Area] 0 - 2 Normal 0-2 [facility] Comment on above: Result Comment: . Performed By: #### H EMDF, LIPA4, CMP3 #### [facility] [address] [place] [address] Specific Nadeau,Urine 1.020 Normal 1.005 - 1.030 [facility] Comment on above: Result Comment: . Performed By: #### H EMDF, LIPA4, CMP3 #### [facility] [address] [place] [address] Urobilinogen,Urine Normal Normal Normal (0-1) [facility] Comment on above: Result Comment: . Performed By: #### H EMDF, LIPA4, CMP3 #### [facility] [address] [place] [address] WBC LM.HPF (Urine sed) [#/Area] 0 - 2 Normal 0-5 [facility] Comment on above: Result Comment: . Performed By: #### H EMDF, LIPA4, CMP3 #### [facility] [address] [place] [address] Comprehensive Metabolic Pane con 07-05-2020 Albumin [Mass/Vol] 3.5 g/dL 3.5 - 5 g/dL [place], [place] ALP [Catalytic activity/Vol] 78 U/L 38 - 126 U/L [place] ALT [Catalytic activity/Vol] 8 U/L 0 - 49 U/L [place] Comment on above: The ALT test is perf ormed by an updated assay method. Please note that the reference intervals have been changed and are now sex specific. Anion gap [Moles/Vol] 3 mmol/L [place], [place] AST [Catalytic activity/Vol] 25 U/L 15 - 46 U/L [place] Bilirubin Ql (U) 0.3 mg/dL 0.2 - 1.3 mg/dL [place] Calcium [Mass/Vol] 8.9 mg/dL 8.4 - 10. 4 mg/dL [place] Chloride [Moles/Vol] 103 mmol/L 98 - 10 7 mmol/L [place] CO2 [Moles/Vol] 29 mmol/L 22 - 30 mmol/L [place] Creatinine [Mass/Vol] 0.52 mg/dL 0.52 - 1.25 mg/dL [place] EGFR IF NonAfrican Cambodian >90.0 >60 mL/min [place] Comment on above: KDIGO guidelines pro vide the following GFR categories: Stage GFR(ml/min/1.73 m2) Terms G1 >=90 Normal or high G2 60-89 Mildly decreased* G3a 45-59 Mildly to moderately decreased G3b 30-44 Moderately to severely decreased G4 15-29 Severely decreased G5 <15 Kidney failure *Relative to young adult level. In the absence of evidence of kidney damage, neither GFR category G1 nor G2 fulfill the criteria for CKD. The CKD-EPI equation is validated in individuals 18 years of age and older. Currently the best equation for estimating glomerular filtration rate (GFR) from serum creatinine in children is the Bedside Harkins equation. It is less accurate in patients with extremes of muscle mass, restriction of dietary protein, ingestion of creatine, extra-renal metabolism of creatinine, or treatment with medications that affect renal tubular creatinine secretion. GFR/1.73 sq M predicted among blacks MDRD (S/P/Bld) [Vol rate/Area] mL/min/{1.73_m2} >60 mL/min [place] Glucose [Mass/Vol] 177 mg/dL High 70 - 100 mg/dL [place] Potassium [Moles/Vol] 4.4 mmol/L 3.5 - 5.1 mmol/L [place] Protein [Mass/Vol] 6.2 g/dL Low 6.3 - 8.2 g/dL [place] Sodium [Moles/Vol] 135 mmol/L 135 - 145 mmol/L [place] Urea nitrogen [Mass/Vol] 10 mg/dL 7 - 20 mg/dL [place] Hemoglobin A1Con 07-05-2020 HbA1c (Bld) [Mass fraction] % High 4.0-6.0 [facility] Comment on above: Result Comment: --Hg bA1C levels may not be accurate in patients who have renal disease, received recent blood transfusions, are anemic, or who have dyshemoglobinemia. Performed By: #### H A1C2, HEMDF, PT, CMP3 #### [place] [facility] [address] [place] [address] #### HCVQ #### [address] [address] HbA1c (Bld) [Mass fraction] 355 mg/dL Normal [facility] Comment on above: Performed By: #### H A1C2, HEMDF, PT, CMP3 #### [facility] [address] [place] [address] #### HCVQ #### [facility] [address] [place] [address] Hemoglobin A1con 07-05-2020 eAG 355 mg/dL [place] HbA1c (Bld) [Mass fraction] % High 4 - 6 % [place] Comment on above: --HgbA1C levels may not be accurate in patients who have renal disease, received recent blood transfusions, are anemic, or who have dyshemoglobinemia. Hemogram w/ [employer]od[employer] 07-05 Abs Baso Cnt 0.1 10*3/uL Normal 0.0-0.2 [facility] Comment on above: Performed By: #### H A1C2, HEMDF, PT, CMP3 #### [facility] [address] [place] [address] #### HCVQ #### [address] Abs Neutrophile Cnt 5.0 10*3/uL Normal 1.8-7.0 [facility] Comment on above: Performed By: #### H A1C2, HEMDF, PT, CMP3 #### [place] [facility] [address] [place] [address] #### HCVQ #### [address] Basophils/100 WBC (Bld) 0.8 % Normal 0.0-2.0 [facility] Comment on above: Performed By: #### H A1C2, HEMDF, PT, CMP3 #### [place] [facility] [address] [place] [address] #### HCVQ #### [place] [address] [place], [place] Eosinophils (Bld) [#/Vol] 0.5 10*3/uL Normal 0.0-0.5 [facility] Comment on above: Performed By: #### H A1C2, HEMDF, PT, CMP3 #### [place] [facility] [address] [place] [address] #### HCVQ #### [address] Eosinophils/100 WBC (Bld) 6.3 % High 1.0-6.0 [facility] Comment on above: Performed By: #### H A1C2, HEMDF, PT, CMP3 #### [facility] [address] [place] [address] #### HCVQ #### [place] [address] [place], [place] Erythrocyte distribution width (RBC) [Ratio] 16.9 % High 11.5-14.5 [facility] Comment on above: Performed By: #### H A1C2, HEMDF, PT, CMP3 #### [place] [address] [place] [address] #### HCVQ #### [address] Granulocytes/100 WBC (Bld) 57.4 % Normal 40.0-80.0 [facility] Comment on above: Performed By: #### H A1C2, HEMDF, PT, CMP3 #### [place] [address] [place] [address] #### HCVQ #### [place] [address] [place], [place] Hematocrit (Bld) [Volume fraction] 37.3 % Low 40.0-52.0 [facility] Comment on above: Performed By: #### H A1C2, HEMDF, PT, CMP3 #### [place] [address] [place] [address] #### HCVQ #### [place] [address] [place], [place] Hemoglobin (Bld) [Mass/Vol] 12.1 g/dL Low 13.0-18.0 [facility] Comment on above: Performed By: #### H A1C2, HEMDF, PT, CMP3 #### [place] [address] [place] [address] #### HCVQ #### [address] Lymphocytes (Bld) [#/Vol] 2.4 10*3/uL Normal 1.0-4.3 [facility] Comment on above: Performed By: #### H A1C2, HEMDF, PT, CMP3 #### [facility] [address] [place] [address] #### HCVQ #### [address] Lymphocytes/100 WBC (Bld) 27.8 % Normal 20.0-40.0 [facility] Comment on above: Performed By: #### H A1C2, HEMDF, PT, CMP3 #### [facility] [address] [place] [address] #### HCVQ #### [address] [place], [place] MCH (RBC) [Entitic mass] 26.0 pg Normal 26.0-34.0 [facility] Comment on above: Performed By: #### H A1C2, HEMDF, PT, CMP3 #### [place] [address] [place] #### HCVQ #### [address] MCHC (RBC) [Mass/Vol] 32.5 % Normal 32.0-36.0 [facility] Comment on above: Performed By: #### H A1C2, HEMDF, PT, CMP3 #### [place] [address] [place] [address] #### HCVQ #### [address] MCV (RBC) [Entitic vol] 79.9 fL Low 80.0-98.0 [facility] Comment on above: Performed By: #### H A1C2, HEMDF, PT, CMP3 #### [place] [address] [place] [address] #### HCVQ #### [address] Monocytes (Bld) [#/Vol] 0.7 10*3/uL Normal 0.0-0.8 [facility] Comment on above: Performed By: #### H A1C2, HEMDF, PT, CMP3 #### [place] [address] [place] [address] #### HCVQ #### [place] [address] [place] [address] Monocytes/100 WBC (Bld) 7.7 % Normal 2.0-10.0 [facility] Comment on above: Performed By: #### H A1C2, HEMDF, PT, CMP3 #### [facility] [address] [place] [address] #### HCVQ #### [place] [address] [address] [place], [place] Platelet mean volume (Bld) [Entitic vol] 8.8 fL Normal 7.4-10.4 [facility] Comment on above: Performed By: #### H A1C2, HEMDF, PT, CMP3 #### [facility] [address] [place] [address] #### HCVQ #### [address] Platelets (Bld) [#/Vol] 216 10*3/uL Normal 140-440 [facility] Comment on above: Performed By: #### H A1C2, HEMDF, PT, CMP3 #### [facility] [address] [place] [address] #### HCVQ #### [place] [address] [address] [place], [place] RBC (Bld) [#/Vol] 4.67 10*6/uL Normal 4.40-5.90 [facility] Comment on above: Performed By: #### H A1C2, HEMDF, PT, CMP3 #### [facility] [address] [place] [address] #### HCVQ #### [place] [address] [address] [place], [place] WBC (Bld) [#/Vol] 8.6 10*3/uL Normal 3.6-10.7 [facility] Comment on above: Performed By: #### H A1C2, HEMDF, PT, CMP3 #### [facility] [address] [place] [address] #### HCVQ #### [address] [address] MRI LE Non Joint w/o Magno Liconaon 07-05-2020 MRI LE Non Joint w/o Contrast Left Patient Name: TORI CANTOR [facility] ACCESSION EXAM DATE/TIME PROCEDURE ORDERING PROVIDER [id number] 07/05/2020 15:50 EST MRI Low Ext Non Joint w/ TOBY MO P o Contrast Left CPT code 15329 Reason For Exam (MRI Low Ext Non Joint w/o Contrast Left) osteomyelitis Report Examination: MRI left lower extremity Clinical Indication: osteomyelitis Comparison: X-ray 07/04/2020 Findings: Multiplanar multisequence high field strength MRI images obtained through the left lower extremity which includes the knee and tibia and fibula. Examination performed without contrast. 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 There is some susceptibility artifact from surgical changes at the stump. There is a small ulceration, wound tract laterally just anterior to the fibula and best seen on series 601 image 21. The wound tract extends down to the distal fibula. There is a trace amount of superficial surface enhancement along the tip of the fibula extending posteriorly for approximately 1.5 cm along the cortex only and suggesting very early surface osteomyelitis. There is surrounding soft tissue inflammation. There is intramuscular edema likely infectious myositis within the lateral margin of the soleus. No discrete fluid collection to suggest abscess. Area of muscular involvement measures up to 4.5 cm cranial to caudal, 2.8 cm anterior to posterior and 4.6 cm medial to lateral. Trace amount of peroneal muscular edema also seen. There is some soft tissue edema at the stump posteriorly concerning for cellulitis. No sizable bursal fluid collection. There is suggestion of a early abscess, phlegmon and and the tip of the fibula measuring up to 0.6 cm and seen on series 1101 image 15. The tibia also demonstrates a trace amount of cortical surface edema along the distal 3.5 cm. No evidence of deep osseous infection. Small knee joint effusion. Impression: Magnetic Resonance Imaging Report 1. Left below the knee amputation. 2. Soft tissue ulceration and deep wound tract seen along the lateral aspect of the stump just anterior to the fibula and extending down to the fibular terminus. Trace amount of very mild surface osseous edema along the distal 1.5 cm of fibula and distal 3.5 cm of tibia concerning for surface osteomyelitis. No evidence of Robert's abscess or more deep osseous infection. 3. Muscular edema moderate in severity along the lateral margin of the soleus with trace amount of peroneal edema. Findings concerning for infectious myositis given the adjacent wound tract. Suggestion of tiny early abscess/phlegmon at the tip of the fibula incompletely characterized without gadolinium contrast. This measures up to 0.6 cm. Report Dictated on Workstation: [id number] Final Dictating Physician: MD SERA, GARRY Saba Signed Date and Time: 07/06/2020 7:26 am Signed by: MD ZAMORA ANTHONY J Transcribed Date and Time: 07/06/2020 7:27 Normal [facility] Otheron 07-05-2020 Interpretation and review of laboratory results Abnormal [facility] [place] Test Performed by [facility], [address] [place] [address] [employer] [employer], [place] POCT Glucoseon 07-05-2020 Glucose [Mass/Vol] 141 mg/dL High 70 - 100 mg/dL [facility] [place] [place] Comment on above: Test performed by gl ucose meter. Results may be 10%-15% lower than serum/plasma values. (CLIA ID [id number]) Interpretation and review of laboratory results Abnormal [employer] [place] Test Performed by [facility], [address], [place] [address] [employer], [place] Glucose [Mass/Vol] 171 mg/dL High 70 - 100 mg/dL [facility] [place] [place] Comment on above: Test performed by gl ucose meter. Results may be 10%-15% lower than serum/plasma values. (CLIA ID [id number]) Interpretation and review of laboratory results Abnormal [employer] [place] Test Performed by [facility], [address], [place], [place] [address] [employer] Glucose [Mass/Vol] 99 mg/dL 70 - 100 mg/dL [facility] [place] [place] Comment on above: Test performed by gl ucose meter. Results may be 10%-15% lower than serum/plasma values. (CLIA ID [id number]) Test Performed by [facility], [address] [place], [place] [address] [place], [place] Glucose [Mass/Vol] 140 mg/dL High 70 - 100 mg/dL [place] Comment on above: Test performed by gl ucose meter. Results may be 10%-15% lower than serum/plasma values. (CLIA ID [id number]) Interpretation and review of laboratory results Abnormal [place] Test Performed by [facility], [address] [place] [address] [place] Prothrombin Timeon 0 INR Coag (PPP) [Relative time] 0.9 Normal 0.9-1.1 [facility] Comment on above: Result Comment: Gian mmended Anticoagulant Therapy: SEE BELOW ----- INR of 2.0 - 3.0 : - Prophylaxis of Venous Thrombosis (high-risk surgery) - Treatment of Venous Thrombosis - Treatment of Pulmonary Embolism (Includes tissue heart valves, Acute Myocardial Infarction to prevent systemic embolism, Valvular Heart Disease, and Atrial Fibrillation) ----- INR of 2.5 - 3.5 : - Mechanical Prosthetic Valves (high risk) - If oral anticoagulant therapy is used to prevent Myocardial Infarction Performed By: #### H A1C2, HEMDF, PT, CMP3 #### [facility] [address] [place] [address] #### HCVQ #### [address] PT Coag (PPP) [Time] 10.0 s Normal 9.0-12.0 [facility] Comment on above: Result Comment: . Performed By: #### H A1C2, HEMDF, PT, CMP3 #### [facility] [address] [place] [address] #### HCVQ #### [address] [address] Protime-INRon 07-05-2020 INR Coag (PPP) [Relative time] 0.9 {INR} [place], [place] Comment on above: Recommended Anticoag ulant Therapy: SEE BELOW ----- INR of 2.0 - 3.0 : - Prophylaxis of Venous Thrombosis (high-risk surgery) - Treatment of Venous Thrombosis - Treatment of Pulmonary Embolism (Includes tissue heart valves, Acute Myocardial Infarction to prevent systemic embolism, Valvular Heart Disease, and Atrial Fibrillation) ----- INR of 2.5 - 3.5 : - Mechanical Prosthetic Valves (high risk) - If oral anticoagulant therapy is used to prevent Myocardial Infarction PT Coag (PPP) [Time] 10 s 9 - 12 s [place], [place] Comment on above: . Test Performed by [facility], [address] [place] [address] [place], [place] Basic Metabolic Panelon - Anion gap [Moles/Vol] 8 Normal [facility] Comment on above: Performed By: #### C UA2 #### [facility] [address] [place] [address] Calcium [Mass/Vol] 9.3 mg/dL Normal 8.4-10.4 [facility] Comment on above: Performed By: #### C UA2 #### [facility] [address] [place] [address] CO2 [Moles/Vol] 31 mmol/L High 22-30 [facility] Comment on above: Performed By: #### C UA2 #### [facility] [address] [place] [address] Glucose [Mass/Vol] 611 mg/dL Critically high 70-100 S [facility] Comment on above: Performed By: #### C UA2 #### [facility] [address] [place] [address] Urea nitrogen [Mass/Vol] 21 mg/dL High 7-20 [facility] Comment on above: Performed By: #### C UA2 #### [facility] [address] [place] [address] Creatinine [Mass/Vol] 0.58 mg/dL Normal 0.52-1.25 [facility] Comment on above: Performed By: #### C UA2 #### [facility] [address] [place] [address] GFR/1.73 sq M predicted among blacks MDRD (S/P/Bld) [Vol rate/Area] mL/min/{1.73_m2} Normal >60 [facility] Comment on above: Performed By: #### C UA2 #### [facility] [address] [place] [address] GFR/1.73 sq M predicted among non-blacks MDRD (S/P/Bld) [Vol rate/Area] mL/min/{1.73_m2} Normal >60 [facility] Comment on above: Result Comment: KDIG O guidelines provide the following GFR categories: Stage GFR(ml/min/1.73 m2) Terms G1 >=90 Normal or high G2 60-89 Mildly decreased* G3a 45-59 Mildly to moderately decreased G3b 30-44 Moderately to severely decreased G4 15-29 Severely decreased G5 <15 Kidney failure *Relative to young adult level. In the absence of evidence of kidney damage, neither GFR category G1 nor G2 fulfill the criteria for CKD. The CKD-EPI equation is validated in individuals 18 years of age and older. Currently the best equation for estimating glomerular filtration rate (GFR) from serum creatinine in children is the Bedside Harkins equation. It is less accurate in patients with extremes of muscle mass, restriction of dietary protein, ingestion of creatine, extra-renal metabolism of creatinine, or treatment with medications that affect renal tubular creatinine secretion. Performed By: #### C UA2 #### [facility] [address] [place] [address] Chloride [Moles/Vol] 90 mmol/L Low 98-107 [facility] Comment on above: Performed By: #### C UA2 #### [facility] [address] [place] [address] Potassium [Moles/Vol] 4.7 mmol/L Normal 3.5-5.1 [facility] Comment on above: Performed By: #### C UA2 #### [facility] [address] [place] [address] Sodium [Moles/Vol] 128 mmol/L Low 135-145 [facility] Comment on above: Performed By: #### C UA2 #### [facility] [address] [place] [address] Anion gap [Moles/Vol] 8 mmol/L [facility], [place] Calcium [Mass/Vol] 9.3 mg/dL 8.4 - 10. 4 mg/dL [place] Chloride [Moles/Vol] 90 mmol/L Low 98 - 10 7 mmol/L [place] CO2 [Moles/Vol] 31 mmol/L High 22 - 30 mmol/L [place] Creatinine [Mass/Vol] 0.58 mg/dL 0.52 - 1.25 mg/dL [place] EGFR IF NonAfrican [place]ian >90.0 >60 mL/min [place] Comment on above: KDIGO guidelines pro vide the following GFR categories: Stage GFR(ml/min/1.73 m2) Terms G1 >=90 Normal or high G2 60-89 Mildly decreased* G3a 45-59 Mildly to moderately decreased G3b 30-44 Moderately to severely decreased G4 15-29 Severely decreased G5 <15 Kidney failure *Relative to young adult level. In the absence of evidence of kidney damage, neither GFR category G1 nor G2 fulfill the criteria for CKD. The CKD-EPI equation is validated in individuals 18 years of age and older. Currently the best equation for estimating glomerular filtration rate (GFR) from serum creatinine in children is the Bedside Harkins equation. It is less accurate in patients with extremes of muscle mass, restriction of dietary protein, ingestion of creatine, extra-renal metabolism of creatinine, or treatment with medications that affect renal tubular creatinine secretion. GFR/1.73 sq M predicted among blacks MDRD (S/P/Bld) [Vol rate/Area] mL/min/{1.73_m2} >60 mL/min [place] Glucose [Mass/Vol] 611 mg/dL Critically high 70 - 1 00 mg/dL [place] Interpretation and review of laboratory results Abnormal [place] Potassium [Moles/Vol] 4.7 mmol/L 3.5 - 5.1 mmol/L [place] Sodium [Moles/Vol] 128 mmol/L Low 135 - 145 mmol/L [place] Urea nitrogen [Mass/Vol] 21 mg/dL High 7 - 20 mg/dL [place] Test Performed by [facility], [address], [place], [place] [address] [place] [address] CBC Auto Differentialon 12-1 6-2020 Absolute Baso # 0.1 10*3/uL 0 - 0.2 10*3/uL [place], [place] Absolute Neut # 5.9 10*3/uL 1.8 - 7 10*3/uL [place] Basophils/100 WBC (Bld) 1.2 % 0 - 2 % [place] Eosinophils (Bld) [#/Vol] 0.4 10*3/uL 0 - 0.5 10*3/uL [place] Eosinophils/100 WBC (Bld) 4.5 % 1 - 6 % [place] Erythrocyte distribution width (RBC) [Ratio] 16.6 % High 11.5 - 14.5 % [place] Granulocytes/100 WBC (Bld) 60.6 % 40 - 80 % [place] Hematocrit (Bld) [Volume fraction] 38.3 % Low 40 - 52 % [place] Hemoglobin (Bld) [Mass/Vol] 12.4 g/dL Low 13 - 18 g/dL [place] Interpretation and review of laboratory results Abnormal [place] Lymphocytes (Bld) [#/Vol] 2.4 10*3/uL 1 - 4.3 10*3/uL [place] Lymphocytes/100 WBC (Bld) 24.6 % 20 - 40 % [place] MCH (RBC) [Entitic mass] 25.7 pg Low 26 - 34 pg [place] MCHC (RBC) [Mass/Vol] 32.5 % 32 - 36 % [place], [place] MCV (RBC) [Entitic vol] 79.2 fL Low 80 - 98 fL [place] Monocytes (Bld) [#/Vol] 0.9 10*3/uL High 0 - 0.8 10*3/uL [place] Monocytes/100 WBC (Bld) 9.1 % 2 - 10 % [place] Platelet mean volume (Bld) [Entitic vol] 8.7 fL 7.4 - 10.4 fL [place] Platelets (Bld) [#/Vol] 224 10*3/uL 140 - 440 10*3/uL [place] RBC (Bld) [#/Vol] 4.83 10*6/uL 4.4 - 5.9 10*6/uL [facility], [place] WBC (Bld) [#/Vol] 9.7 10*3/uL 3.6 - 10.7 10*3/uL [place] Test Performed by [facility], [address], [place], [place] [id number] [place] [address] CR Tibia/Fibula 2 Views Left on 07-04-2020 CR Tibia/Fibula 2 Views Left Patient Name: TORI CANTOR Diagnostic Radiology ACCESSION EXAM DATE/TIME PROCEDURE ORDERING PROVIDER [id number] 07/04/2020 11:56 EST CR Tibia/Fibula 2 Views MD JORGE LUIS, MARIBELL [place] Left CPT code 08746 Reason For Exam (CR Tibia/Fibula 2 Views Left) Patient has below the knee application. Patient has likely cellulitis and abscess at his stump. Report Indication: Possible cellulitis. Findings and impression: Left leg tibia fibula performed two views. Below the knee amputation. No bony lytic process. No soft tissue gas. Some edema of the soft tissues present suspicious for cellulitis. Please correlate clinically. Report Dictated on Final Dictating Physician: MD REYES JOHN Signed Date and Time: 07/04/2020 12:00 pm Signed by: MD REYES JOHN Transcribed Date and Time: 07/04/2020 12:01 Normal [facility] ED Provider Noteon 0 ED Provider Note [facility] ED EMERGENCY DEPARTMENT ENCOUNTER Pt Name: Tori Cantor Birthdate 1975 Date of evaluation: 07/04/2020 Provider: Maribell Kang MD CHIEF COMPLAINT Chief Complaint Patient presents with ? Cellulitis HISTORY OF PRESENT ILLNESS (Location/Symptom, Timing/Onset,Context/Sett ing, Quality, Duration, Modifying Factors, Severity) Note limiting factors. Tori Cantor is a 45 y.o. male who presents to the emergency department with cellulitis. Patient has a left below the knee amputation. Done at clinic [facility] but the patient does not want to follow-up with them. He reports he had a raised area concerned about infection recently he bumped it started draining. He went and saw a doctor today about his right ankle and his diabetic joints and was sent here because of concerns of cellulitis. He is diabetic. No fevers or chills. He is having a lot of pain in the leg. Primary care physician Dr. Nelson. No chest pain, shortness of breath, fevers, chills. No other complaints. Comes in to be seen. HPI Nurse's notes for past medical history, surgicalhistory, social history were reviewed. Medications and allergies reviewed. REVIEW OF SYSTEMS (2-9 systems for level 4, 10 or more for level 5) Review of Systems Total of 10 systems reviewed, please see pertinent positives, pertinent negatives above in HPI. PAST MEDICAL HISTORY Past Medical History: Diagnosis Date ? Colitis 03/14/2016 ? Depression ? Diabetes mellitus type 1 with manifestations, uncontrolled (HCC) ? Gastroparesis ? GERD (gastroesophageal reflux disease) GERD ? Hepatitis C In Past ? Hypertension ? Hyponatremia 03/14/2016 ? Neuropathy ? Osteoarthritis ? 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 AMPUTATION Left 06/2019 [facility] ? COLONOSCOPY 03/17/2016 ? DENTAL SURGERY ? UPPER GASTROINTESTINAL ENDOSCOPY 2013 ? UPPER GASTROINTESTINAL ENDOSCOPY 11/02/2017 CURRENT MEDICATIONS Previous Medications ACETAMINOPHEN (TYLENOL) 325 MG TABLET Take 2 tablets by mouth every 4 hours as needed for Pain ASPIRIN 81 MG EC TABLET Take 1 tablet by mouth daily ASPIRIN 81 MG TABLET Take 81 mg by mouth daily BLOOD GLUCOSE MONITOR STRIPS type II Dm, E11.9, test once per day CILOSTAZOL (PLETAL) 100 MG TABLET Take 1 tablet by mouth 2 times daily DICLOFENAC SODIUM (VOLTAREN) 1 % GEL Apply 4 g topically 4 times daily DULOXETINE (CYMBALTA) 60 MG EXTENDED RELEASE CAPSULE Take 2 capsules by mouth daily GABAPENTIN (NEURONTIN) 300 MG CAPSULE Take 1 capsule by mouth 3 times daily for 180 days. Intended supply: 30 days INSULIN PEN NEEDLE (PEN NEEDLES 31GX5/16) 31G X 8 MM MISC 1 each by Does not apply route daily INSULIN REGULAR (HUMULIN R) 100 UNIT/ML INJECTION Inject 12 Units into the skin See Admin Instructions Inject as sliding scale if 150-200= 2 units, 201-250 = 4 units, 251-300=6 units, 301-350=8 units, 351-400= 10 units, 401-450=12 units before meals and at bedtime Max dosage of 48 units daily INSULIN SYRINGE-NEEDLE U-100 ([employer] INSULIN SYRINGE) 31G X 5/16 0.3 ML MISC 1 each by Does not apply route daily LANCETS MISC 1 each by Does not apply route 4 times daily LANTUS SOLOSTAR 100 UNIT/ML INJECTION PEN Inject 30 Units into the skin nightly LISINOPRIL (PRINIVIL;ZESTRIL) 10 MG TABLET Take 1 pill daily METOCLOPRAMIDE (REGLAN) 5 MG TABLET Take 1 tablet by mouth 3 times daily NYSTATIN (MYCOSTATIN) 884105 UNIT/GM CREAM Apply topically 2 times daily. PANTOPRAZOLE (PROTONIX) 40 MG TABLET Take 1 tablet by mouth every morning (before breakfast) POLYETHYLENE GLYCOL (GLYCOLAX) 17 GM/SCOOP POWDER Take 17 g by mouth daily RELION INSULIN SYR 0.5ML/31G 31G X 5/16 0.5 ML MISC USE ONE SYRINGE 4 TIMES DAILY BEFORE MEALS AND AT BEDTIME SENNOSIDES-DOCUSATE SODIUM (SENOKOT-S) 8.6-50 MG TABLET Take 2 tablets by mouth 2 times daily Patient has no known allergies. FAMILY HISTORY Family History Problem Relation Age of Onset ? Diabetes Mother ? Heart Disease Mother ? High Blood Pressure Mother ? Stroke Mother ? Diabetes Father ? Heart Disease Father ? High Blood Pressure Father ? Stroke Father SOCIAL HISTORY Social History Socioeconomic History ? Marital status: Spouse name: None ? Number of children: None ? Years of education: None ? Highest education level: None Occupational History ? None Social Needs ? Financial resource strain: None ? Food insecurity Worry: None Inability: None ? Transportation needs Medical: None Non-medical: None Tobacco Use ? Smoking status: Current Every Day Smoker Packs/day: 0.50 Years: 30.00 Pack years: 15.00 Types: Cigarettes ? Smokeless tobacco: Never Used Substance and Sexual Activity ? Alcohol use: Not Currently Alcohol/week: 0.0 standard drinks Comment: Rare ? Drug use: Not Currently Frequency: 1.0 times per week Types: Marijuana ? Sexual activity: Not Currently Lifestyle ? Physical activity Days per week: None Minutes per session: None ? Stress: None Relationships ? Social connections Talks on phone: None Gets together: None Attends congregation service: None Active member of club or organization: None Attends meetings of clubs or organizations: None Relationship status: None ? Intimate partner violence Fear of current or ex partner: None Emotionally abused: None Physically abused: None Forced sexual activity: None Other Topics Concern ? None Social History Narrative ? None SCREENINGS PHYSICAL EXAM (up to 7 for level 4, 8 or more for level 5) ED Triage Vitals BP Temp Temp Source Pulse Resp SpO2 Height Weight 07/04/20 1005 07/04/20 1002 07/04/20 1002 07/04/20 1002 07/04/20 1002 07/04/20 1002 -- 07/04/20 1002 (!) 138/95 98.4 ?F (36.9 ?C) Oral 88 16 99 % 165 lb (74.8 kg) Appropriate PPE including n 95, gown, gloves, goggles where worn when appropriate with this patient. Physical Exam Vital signs reviewed general: Alert and oriented ?3 head: Atraumatic eyes: Equal round reactive to light and accommodating, pupils are equal, round and reactive to light and accommodation oropharynx: Clear and well hydrated neck: Supple no lymphadenopathy heart: Regular rate and rhythm, no murmurs lungs: Clear to auscultation bilaterally abdomen: Soft nontender, positive bowel sounds, no peritoneal findings. Extremities: The stump of his left below the knee and dictation does show signs of cellulitis and an open area about size of a nickel but does have puslike drainage. Wound culture was obtained by the nursing staff. Skin: No rash or lesions neurologically: Alert and oriented ?3, no focal deficit DIAGNOSTIC RESULTS RADIOLOGY: plain film images such as CT, Ultrasound and MRI are read by the radiologist. Plain radiographic images are visualized and preliminarily interpreted by the emergency physician with the below findings: X-ray report confirms there is no gas however likely cytolytic changes. Interpretation per the Radiologist below, if availableat the time of this note: XR TIBIA FIBULA LEFT (2 VIEWS) Final Result ED BEDSIDE ULTRASOUND: Performed by ED Physician - none LABS: Labs Reviewed CBC WITH AUTO DIFFERENTIAL - Abnormal; Notable for the following components: Result Value Hemoglobin 12.4 (*) Hematocrit 38.3 (*) MCV 79.2 (*) MCH 25.7 (*) RDW 16.6 (*) Absolute [place] # 0.9 (*) All other components within normal limits Narrative: Test Performed by [facility], [address] [place], [place] [address] BASIC METABOLIC PANEL - Abnormal; Notable for the following components: Sodium 128 (*) Chloride 90 (*) CO2 31 (*) Glucose 611 (*) BUN 21 (*) All other components within normal limits Narrative: [facility], [address] [place], [place] [address] CULTURE, ANAEROBIC AND AEROBIC LACTIC ACID, PLASMA Narrative: Test Performed by [facility], [address] [place], [place] [address] POCT GLUCOSE All other labs were within normal range or not returned as of thisdictation. EMERGENCYDEPARTMENT COURSE and DIFFERENTIAL DIAGNOSIS/MDM: Vitals: Vitals: 07/04/20 1002 07/04/20 1005 07/04/20 1200 BP: (!) 138/95 (!) 149/93 Pulse: 88 78 Resp: 16 Temp: 98.4 ?F (36.9 ?C) TempSrc: Oral SpO2: 99% 95% Weight: 74.8 kg (165 lb) Emergency Department course?labs reviewed. He is hyperglycemic but not in diabetic ketoacidosis clinically. He is given IV fluids. Given insulin. Patient cultures obtained. Patient given Zosyn and vancomycin. Patient will be admitted for cellulitis and hyperglycemia. I spoke with IMS doctor also elmer. I explained all clinical findings, signs, symptoms, diagnostic studies, treatment, intervention, in the Emergency Department. She agrees to admit [facility] TIME Total Critical Care time was 0 minutes, excluding separately reportable procedures. There was a high probability of clinically significant/life threatening deterioration in the patient's condition which required my urgentintervention. CONSULTS: None PROCEDURES: Unless otherwise noted below, none Procedures IMPRESSION 1. Cellulitis of left lower extremity 2. Hyperglycemia DISPOSITION/PLAN DISPOSITION Admitted 07/04/2020 01:34:24 PM PATIENT REFERRED TO: No follow-up provider specified. DISCHARGE MEDICATIONS: New Prescriptions No medications on file (Comment: Please notethis report has been produced using speech recognition software and may contain errors related to that system including errors in grammar, punctuation, and spelling, as well as words and phrases that may be inappropriate.If there is any questions or concerns please feel free to contact the dictating provider for clarification). Maribell Kang MD (electronically signed) Attending Emergency Physician Maribell Kang MD 07/04/20 1356 Maribell Kang MD 07/04/20 1356 Normal [facility] Glucose,Bedsideon 07-04-2020 Glucose [Mass/Vol] 281 mg/dL High 70-100 [facility] Comment on above: Result Comment: Test performed by glucose meter. Results may be 10%-15% lower than serum/plasma values. (CLIA ID [id number]) Performed By: #### H EMDF, LIPA4, CMP3 #### [facility] [address] [place] [address] Hemogram w/ Autodiffon 07-04 Abs Baso Cnt 0.1 10*3/uL Normal 0.0-0.2 [facility] Comment on above: Performed By: #### C UA2 #### [facility] [address] [place] [address] Abs Neutrophile Cnt 5.9 10*3/uL Normal 1.8-7.0 [facility] Comment on above: Performed By: #### C UA2 #### [facility] [address] [place] [address] Basophils/100 WBC (Bld) 1.2 % Normal 0.0-2.0 [facility] Comment on above: Performed By: #### C UA2 #### [facility] [address] [place] [address] Eosinophils (Bld) [#/Vol] 0.4 10*3/uL Normal 0.0-0.5 [facility] Comment on above: Performed By: #### C UA2 #### [facility] [address] [place] [address] Eosinophils/100 WBC (Bld) 4.5 % Normal 1.0-6.0 [facility] Comment on above: Performed By: #### C UA2 #### [facility] [address] [place] [address] Erythrocyte distribution width (RBC) [Ratio] 16.6 % High 11.5-14.5 [facility] Comment on above: Performed By: #### C UA2 #### [facility] [address] [place] [address] Granulocytes/100 WBC (Bld) 60.6 % Normal 40.0-80.0 [facility] Comment on above: Performed By: #### C UA2 #### [facility] [address] [place] [address] Hematocrit (Bld) [Volume fraction] 38.3 % Low 40.0-52.0 [facility] Comment on above: Performed By: #### C UA2 #### [facility] [address] [place] [address] Hemoglobin (Bld) [Mass/Vol] 12.4 g/dL Low 13.0-18.0 [facility] Comment on above: Performed By: #### C UA2 #### [facility] [address] [place] [address] Lymphocytes (Bld) [#/Vol] 2.4 10*3/uL Normal 1.0-4.3 [facility] Comment on above: Performed By: #### C UA2 #### [facility] [address] [place] [address] Lymphocytes/100 WBC (Bld) 24.6 % Normal 20.0-40.0 [facility] Comment on above: Performed By: #### C UA2 #### [facility] [address] [place] [address] MCH (RBC) [Entitic mass] 25.7 pg Low 26.0-34.0 [facility] Comment on above: Performed By: #### C UA2 #### [facility] [address] [place] [address] MCHC (RBC) [Mass/Vol] 32.5 % Normal 32.0-36.0 [facility] Comment on above: Performed By: #### C UA2 #### [facility] [address] [place] [address] MCV (RBC) [Entitic vol] 79.2 fL Low 80.0-98.0 [facility] Comment on above: Performed By: #### C UA2 #### [facility] [address] [place] [address] Monocytes (Bld) [#/Vol] 0.9 10*3/uL High 0.0-0.8 [facility] Comment on above: Performed By: #### C UA2 #### [facility] [address] [place] [address] Monocytes/100 WBC (Bld) 9.1 % Normal 2.0-10.0 [facility] Comment on above: Performed By: #### C UA2 #### [facility] [address] [place] [address] Platelet mean volume (Bld) [Entitic vol] 8.7 fL Normal 7.4-10.4 [facility] Comment on above: Performed By: #### C UA2 #### [facility] [address] [place] [address] Platelets (Bld) [#/Vol] 224 10*3/uL Normal 140-440 [facility] Comment on above: Performed By: #### C UA2 #### [facility] [address] [place] [address] RBC (Bld) [#/Vol] 4.83 10*6/uL Normal 4.40-5.90 [facility] Comment on above: Performed By: #### C UA2 #### [facility] [address] [place] [address] WBC (Bld) [#/Vol] 9.7 10*3/uL Normal 3.6-10.7 [facility] Comment on above: Performed By: #### C UA2 #### [facility] [address] [place] [address] Hepatitis C RNA Quanton 06-19 Note Interpretation Normal [facility] Comment on above: Result Comment: The linear detection limit for this assay is 15 HCV IU/ml. A result of <15 IU (<1.18 log IU) indicates that HCV was detected, but at a level below the linear cutoff. A result of None Detected means that no HCV RNA was detected. Performed By: #### H A1C2, HEMDF, PT, CMP3 #### [facility] [address] [place] [address] #### HCVQ #### [facility] [address] [place] [address] Lactic Acidon 07-04-2020 Lactate [Moles/Vol] 0.9 mmol/L Normal 0.7-2.0 [facility] Comment on above: Performed By: #### C UA2 #### [facility] [address] [place] [address] Lactic Acid, Plasmaon 2019 Lactate [Moles/Vol] 0.9 mmol/L 0.7 - 2 mmol/L [facility] [place] Test Performed by [facility], [address] [place], [place] [address] [place], [place] POCT Glucoseon 07-04-2020 Glucose [Mass/Vol] 171 mg/dL High 70 - 100 mg/dL [place] Comment on above: Test performed by gl ucose meter. Results may be 10%-15% lower than serum/plasma values. (CLIA ID [id number]) Interpretation and review of laboratory results Abnormal [facility] [place] Test Performed by [facility], [address] [place] [address] [facility] [place], [place] Glucose [Mass/Vol] 90 mg/dL 70 - 100 mg/dL [facility] [place] Comment on above: Test performed by gl ucose meter. Results may be 10%-15% lower than serum/plasma values. (CLIA ID [id number]) Test Performed by [facility], [address] [place], [place] [address] [place], [place] [address] [place], [place] Glucose [Mass/Vol] 281 mg/dL High 70 - 100 mg/dL [place] Comment on above: Test performed by gl ucose meter. Results may be 10%-15% lower than serum/plasma values. (CLIA ID [id number]) Interpretation and review of laboratory results Abnormal [employer], [place] Test Performed by [facility], [address] [place], [place] [address] [place], [place] [address] [place], [place] Glucose [Mass/Vol] 423 mg/dL [facility] [place] Interpretation and review of laboratory results Normal [facility] [place], [place] QC OK? yes [place] PROCALCITONINon 07-04-2020 Procalcitonin <0.10 <0.10 ng/mL [place] Sodium [Moles/Vol] See Below [place] Comment on above: PCT <0.50 = Low risk of severe sepsis and/or septic shock. PCT >2.00 = High risk of severe sepsis and/or septic shock. Test Performed by [facility], [address] [place] [address] [place] Procalcitoninon 07-04-2020 Procalcitonin < 0.10 Normal <0.10 [facility] Comment on above: Performed By: #### H EMDF, LIPA4, CMP3 #### [facility] [address] [place] [address] Interpretation See Below Normal [facility] Comment on above: Result Comment: PCT <0.50 = Low risk of severe sepsis and/or septic shock. PCT >2.00 = High risk of severe sepsis and/or septic shock. Performed By: #### H EMDF, LIPA4, CMP3 #### [facility] [address] [place] [address] Urinalysison 07-04-2020 Appearance (U) Clear Clear NA [place] Comment on above: . Bilirubin Urine Negative Negative mg/dL [place] Comment on above: . Color (U) Light-Yellow Lt. Yellow NA [place] Comment on above: . Glucose, Ur >1,000 Abnormal Normal (<70) mg/dL [place] Comment on above: . Interpretation and review of laboratory results Abnormal [place] Ketones Ql (U) Negative Negative mg/dL [place] Comment on above: . LEUKOCYTES, UA Negative Negative Nadine/uL [place] Comment on above: . Mucous Threads Few Negative /[LPF] [place] Comment on above: . Nitrite, Urine Negative Negative NA [place] Comment on above: . Occult Blood,Urine Negative Negative mg/dL [place] Comment on above: . pH (U) 5.5 [pH] [place] Comment on above: . Protein (U) [Mass/Vol] 20 mg/dL Abnormal Negative [place] Comment on above: . RBC (U) [#/Vol] 0-2 0 - 2 /[HPF] [place] Comment on above: . Specific [place], Urine 1.020 [place] Comment on above: . Urobilinogen, Urine Normal Normal ( 0-1) mg/dL [place] Comment on above: . WBC, UA 0-2 0 - 5 /[HPF] [place] Comment on above: . Test Performed by [facility], [address], [place], [place] [address] [place] XR TIBIA FIBULA LEFT (2 VIEW S)on 07-04-2020 Juan [facility], [facility] Incoming Radiology Results From [facility] - 07/04/2020 12:01 PM EST Patient Name: TORI CANTOR Diagnostic Radiology ACCESSION EXAM DATE/TIME PROCEDURE ORDERING PROVIDER [id number] 07/04/2020 11:56 EST CR Tibia/Fibula 2 Views MD KANG GREGORY M Left CPT code 12901 Reason For Exam (CR Tibia/Fibula 2 Views Left) Patient has below the knee application. Patient has likely cellulitis and abscess at his stump. Report Indication: Possible cellulitis. Findings and impression: Left leg tibia fibula performed two views. Below the knee amputation. No bony lytic process. No soft tissue gas. Some edema of the soft tissues present suspicious for cellulitis. Please correlate clinically. Report Dictated on --- Final --- Dictating Physician: MD REYES JOHN Signed Date and Time: 07/04/2020 12:00 pm Signed by: MD REYES JOHN Transcribed Date and Time: 07/04/2020 12:01 [place] Patient Name: TORI CANTOR Diagnostic Radiology ACCESSION EXAM DATE/TIME PROCEDURE ORDERING PROVIDER [id number] 07/04/2020 11:56 EST CR Tibia/Fibula 2 Views MD KANG GREGORY M Left CPT code 57735 Reason For Exam (CR Tibia/Fibula 2 Views Left) Patient has below the knee application. Patient has likely cellulitis and abscess at his stump. Report Indication: Possible cellulitis. Findings and impression: Left leg tibia fibula performed two views. Below the knee amputation. No bony lytic process. No soft tissue gas. Some edema of the soft tissues present suspicious for cellulitis. Please correlate clinically. Report Dictated on --- Final --- Dictating Physician: MD REYES JOHN Signed Date and Time: 07/04/2020 12:00 pm Signed by: MD REYES JOHN Transcribed Date and Time: 07/04/2020 12:01 [place] PELVIS W CONTRAST Additio nal Contrast? Radiologist Recommendationon 12-07-2019 Patient Name: TORI CANTOR ---CT--- Exam Date/Time 12/07/2019 10:06:[address] Pelvis w/ Contrast (IV Only) Ordering Physician ELIZABETH NELSON D.O. Accession Number [id number] CPT4 Codes Q9967 (CT ISOVUE 370MG/ML&[id number]&ML&1 ), 90348 (CT Pelvis w/ Contrast (IV Only)) Reason For Exam Left lower quadrant abdominal swelling, mass and lump Report CLINICAL INFORMATION: Left lower quadrant/left pelvic superficial bump. Possible mass. 3 mm axial cuts are obtained from the iliac crests through the symphysis pubis with 75 mL Isovue IV contrast and oral contrast. The examination is compared to a previous study dated 09/07/2019. FINDINGS: A BB overlies the patient's perceived mass along the anterior left lower quadrant/pelvis. Deep to this BB, inflammatory changes and small nodular densities are present in the subcutaneous tissues. These demonstrate calcifications. The appearance is essentially symmetric to that seen on the right side. This is also unchanged when compared to the prior CT. There are no loculated collections to suggest an abscess. Oral contrast is seen in nondistended loops of small bowel. Air and stool are identified within the colon to the level of the rectum. There is no evidence of obstruction. The distal ureters and bladder are normal. No free fluid is seen within the pelvis. IMPRESSION: 1. Small nodular densities and calcifications in the anterior pelvic subcutaneous tissues. These are essentially symmetric (left and right) and are most consistent with injection granulomata (likely secondary to injections of subcutaneous heparin or insulin). 2. No loculated collections to suggest an abscess. 3. No pathologic masses appreciated. Report Dictated on --- Final --- Dictating Physician: MD MACDONALD JEFFREY Signed Date and Time: 12/07/2019 1:09 pm Signed by: MD MACDONALD JEFFREY Transcribed Date and Time: 12/07/2019 1:10 [facility] [place], [place] Juan Miguel, [facility] Incoming Radiology Results From [facility] - 12/07/2019 1:10 PM EDT Patient Name: TORI CANTOR ---CT--- Exam Date/Time 12/07/2019 10:06:[address] Pelvis w/ Contrast (IV Only) Ordering Physician ELIZABETH NELSON D.O. Accession Number [id number] CPT4 Codes Q9967 (CT ISOVUE 370MG/[id number] ), 66082 (CT Pelvis w/ Contrast (IV Only)) Reason For Exam Left lower quadrant abdominal swelling, mass and lump Report CLINICAL INFORMATION: Left lower quadrant/left pelvic superficial bump. Possible mass. 3 mm axial cuts are obtained from the iliac crests through the symphysis pubis with 75 mL Isovue IV contrast and oral contrast. The examination is compared to a previous study dated 09/07/2019. FINDINGS: A BB overlies the patient's perceived mass along the anterior left lower quadrant/pelvis. Deep to this BB, inflammatory changes and small nodular densities are present in the subcutaneous tissues. These demonstrate calcifications. The appearance is essentially symmetric to that seen on the right side. This is also unchanged when compared to the prior CT. There are no loculated collections to suggest an abscess. Oral contrast is seen in nondistended loops of small bowel. Air and stool are identified within the colon to the level of the rectum. There is no evidence of obstruction. The distal ureters and bladder are normal. No free fluid is seen within the pelvis. IMPRESSION: 1. Small nodular densities and calcifications in the anterior pelvic subcutaneous tissues. These are essentially symmetric (left and right) and are most consistent with injection granulomata (likely secondary to injections of subcutaneous heparin or insulin). 2. No loculated collections to suggest an abscess. 3. No pathologic masses appreciated. Report Dictated on --- Final --- Dictating Physician: MD MACDONALD JEFFREY Signed Date and Time: 12/07/2019 1:09 pm Signed by: MD MACDONALD JEFFREY Transcribed Date and Time: 12/07/2019 1:10 [place], [place] CT Pelvis w/ Contrast (IV On ly)on 12-07-2019 CT Pelvis w/ Contrast (IV Only) Patient Name: TORI CANTOR CT Exam Date/Time 12/07/2019 10:06:[address] Pelvis w/ Contrast (IV Only) Ordering Physician ELIZABETH NELSON D.O. Accession Number [id number] CPT4 Codes Q9967 (CT ISOVUE 370MG/[id number] MLand1), 40375 (CT Pelvis w/ Contrast (IV Only)) Reason For Exam Left lower quadrant abdominal swelling, mass and lump Report CLINICAL INFORMATION: Left lower quadrant/left pelvic superficial bump. Possible mass. 3 mm axial cuts are obtained from the iliac crests through the symphysis pubis with 75 mL Isovue IV contrast and oral contrast. The examination is compared to a previous study dated 09/07/2019. FINDINGS: A BB overlies the patient's perceived mass along the anterior left lower quadrant/pelvis. Deep to this BB, inflammatory changes and small nodular densities are present in the subcutaneous tissues. These demonstrate calcifications. The appearance is essentially symmetric to that seen on the right side. This is also unchanged when compared to the prior CT. There are no loculated collections to suggest an abscess. Oral contrast is seen in nondistended loops of small bowel. Air and stool are identified within the colon to the level of the rectum. There is no evidence of obstruction. The distal ureters and bladder are normal. No free fluid is seen within the pelvis. IMPRESSION: 1. Small nodular densities and calcifications in the anterior pelvic subcutaneous tissues. These are essentially symmetric (left and right) and are most consistent with injection granulomata (likely secondary to injections of subcutaneous heparin or insulin). 2. No loculated collections to suggest an abscess. 3. No pathologic masses appreciated. Report Dictated on Final Dictating Physician: MD MACDONALD JEFFREY Signed Date and Time: 12/07/2019 1:09 pm Signed by: MD MACDONALD JEFFREY Transcribed Date and Time: 12/07/2019 1:10 Normal [facility] INT6on 11-18-2019 Interleukin 6 36 High [facility] ([place]) Comment on above: Result Comment: Refe rence range: <=5 Unit: pg/mL (NOTE) INTERPRETIVE INFORMATION: Cytokines Results are used to understand the pathophysiology of immune, infectious, or inflammatory disorders, or may be used for research purposes. Test developed and characteristics determined by [employer]. See Compliance Statement B: [employer] Performed by [facility], [address] [place] [id number] [email or web address], Matt Bean MD, Lab. Director Performed By: #### C BC, ADIFF, ANEU, PHV, LIP, CMP, GFR #### [address] [address] .Auto Diffon 11-17-2019 Ammonia (P) [Mass/Vol] 0.50 10 3/mcL Normal 0.09-1.40 [facility] ([place]) Comment on above: Performed By: #### C BC, ADIFF, ANEU, PHV, LIP, CMP, GFR #### [address] [address] Basophils (Bld) [#/Vol] 0.10 10 3/mcL Normal 0.00-0.27 [facility] ([place]) Comment on above: Performed By: #### C BC, ADIFF, ANEU, PHV, LIP, CMP, GFR #### [address] [address] Basophils/100 WBC (Bld) 1.1 % Normal 0.0-2.5 [facility] ([place]) Comment on above: Performed By: #### C BC, ADIFF, ANEU, PHV, LIP, CMP, GFR #### [address] [address] Eosinophils (Bld) [#/Vol] 0.20 10 3/mcL Normal 0.00-0.65 [facility] ([place]) Comment on above: Performed By: #### C BC, ADIFF, ANEU, PHV, LIP, CMP, GFR #### [address] [address] Eosinophils/100 WBC (Bld) 3.3 % Normal 0.0-6.0 [facility] ([place]) Comment on above: Performed By: #### C BC, ADIFF, ANEU, PHV, LIP, CMP, GFR #### [address] [address] Lymphocytes (Bld) [#/Vol] 2.30 10 3/mcL Normal 0.90-4.32 [facility] ([place]) Comment on above: Performed By: #### C BC, ADIFF, ANEU, PHV, LIP, CMP, GFR #### [address] [address] Lymphocytes/100 WBC (Bld) 36.3 % Normal 20.0-40.0 [facility] ([place]) Comment on above: Performed By: #### C BC, ADIFF, ANEU, PHV, LIP, CMP, GFR #### [address] [address] Monocytes/100 WBC (Bld) 8.2 % Normal 2.0-13.0 [facility] ([place]) Comment on above: Performed By: #### C BC, ADIFF, ANEU, PHV, LIP, CMP, GFR #### [address] [address] Neutrophils/100 WBC (Bld) 51.1 % Normal 50.0-75.0 [facility] ([place]) Comment on above: Performed By: #### C BC, ADIFF, ANEU, PHV, LIP, CMP, GFR #### [address] [address] .GFRon 04-30-2020 GFR >60 Normal [facility] ([place]) Comment on above: Result Comment: GFR Population mean for , Non- Americans Ages 20-29 = 116 mL/min/1.73 sq.m. Ages 30-39 = 107 mL/min/1.73 sq.m. Ages 40-49 = 99 mL/min/1.73 sq.m. Ages 50-59 = 93 mL/min/1.73 sq.m. Ages 60-69 = 85 mL/min/1.73 sq.m. Ages 70+ = 75 mL/min/1.73 sq.m. Chronic Kidney Disease: Less than 60 mL/min/1.73 square meters End Stage Renal Disease: Less than 15 mL/min/1.73 square meters Performed By: #### C BC, ADIFF, ANEU, PHV, LIP, CMP, GFR #### [address] [address] GFR Non- >60 Normal [facility] ([place]) Comment on above: Result Comment: GFR Population mean for , Non- Americans Ages 20-29 = 116 mL/min/1.73 sq.m. Ages 30-39 = 107 mL/min/1.73 sq.m. Ages 40-49 = 99 mL/min/1.73 sq.m. Ages 50-59 = 93 mL/min/1.73 sq.m. Ages 60-69 = 85 mL/min/1.73 sq.m. Ages 70+ = 75 mL/min/1.73 sq.m. Chronic Kidney Disease: Less than 60 mL/min/1.73 square meters End Stage Renal Disease: Less than 15 mL/min/1.73 square meters Performed By: #### C BC, ADIFF, ANEU, PHV, LIP, CMP, GFR #### [address] [address] .NEUABSon 11-17-2019 Neutrophils (Bld) [#/Vol] 3.30 10 3/mcL Normal 2.25-8.10 [facility] ([place]) Comment on above: Performed By: #### C BC, ADIFF, ANEU, PHV, LIP, CMP, GFR #### [address] [address] A1Con 11-17-2019 HbA1c (Bld) [Mass fraction] 12.0 % High 4.0-6.0 [facility] ([place]) Comment on above: Performed By: #### C BC, ADIFF, ANEU, PHV, LIP, CMP, GFR #### [address] [address] BMPon 11-17-2019 Calcium [Mass/Vol] 8.9 mg/dL Normal 8.4-10.1 [facility] ([place]) Comment on above: Performed By: #### C BC, ADIFF, ANEU, PHV, LIP, CMP, GFR #### [address] [address] Chloride [Moles/Vol] 101 mmol/L Normal 98-110 [facility] ([place]) Comment on above: Performed By: #### C BC, ADIFF, ANEU, PHV, LIP, CMP, GFR #### [address] [address] CO2 [Moles/Vol] 28 mmol/L Normal 22-32 [facility] ([place]) Comment on above: Performed By: #### C BC, ADIFF, ANEU, PHV, LIP, CMP, GFR #### [address] [address] Creatinine [Mass/Vol] 0.47 mg/dL Low 0.60-1.40 [facility] ([place]) Comment on above: Performed By: #### C BC, ADIFF, ANEU, PHV, LIP, CMP, GFR #### [address] [address] Electrolyte Balance 6.0 mEq/L Normal 4.0-15.0 [facility] ([place]) Comment on above: Performed By: #### C BC, ADIFF, ANEU, PHV, LIP, CMP, GFR #### [address] [address] Glucose [Mass/Vol] 176 mg/dL High 70-110 [facility] ([place]) Comment on above: Performed By: #### C BC, ADIFF, ANEU, PHV, LIP, CMP, GFR #### [address] [address] Potassium [Moles/Vol] 4.0 mmol/L Normal 3.5-5.0 [facility] [place] Comment on above: Performed By: #### C BC, ADIFF, ANEU, PHV, LIP, CMP, GFR #### [address] [address] Sodium [Moles/Vol] 135 mmol/L Low 136-145 [facility] ([place]) Comment on above: Performed By: #### C BC, ADIFF, ANEU, PHV, LIP, CMP, GFR #### [address] [address] Urea nitrogen [Mass/Vol] 15.0 mg/dL Normal 8.0-22.0 [facility] ([place]) Comment on above: Performed By: #### C BC, ADIFF, ANEU, PHV, LIP, CMP, GFR #### [address] [address] Urea nitrogen/Creatinine [Mass ratio] 31.9 ratio High 10.0-22.0 [facility] ([place]) Comment on above: Performed By: #### C BC, ADIFF, ANEU, PHV, LIP, CMP, GFR #### [address] [address] CBCon 11-17-2019 Erythrocyte distribution width (RBC) [Ratio] 17.3 % High 11.5-15.5 [facility] ([place]) Comment on above: Performed By: #### C BC, ADIFF, ANEU, PHV, LIP, CMP, GFR #### [address] [address] Hematocrit (Bld) [Volume fraction] 34.1 % Low 40.0-52.0 [facility] ([place]) Comment on above: Performed By: #### C BC, ADIFF, ANEU, PHV, LIP, CMP, GFR #### [address] [address] Hemoglobin (Bld) [Mass/Vol] 11.1 G/dL Low 13.0-17.5 [facility] ([place]) Comment on above: Performed By: #### C BC, ADIFF, ANEU, PHV, LIP, CMP, GFR #### [address] [address] MCH (RBC) [Entitic mass] 25.3 pg Low 27.0-33.0 [facility] ([place]) Comment on above: Performed By: #### C BC, ADIFF, ANEU, PHV, LIP, CMP, GFR #### [address] [address] MCHC (RBC) [Mass/Vol] 32.6 G/dL Normal 32.0-36.0 [facility] ([place] Comment on above: Performed By: #### C BC, ADIFF, ANEU, PHV, LIP, CMP, GFR #### [address] [address] MCV (RBC) [Entitic vol] 77.5 fL Low 81.0-100.0 [facility] ([place]) Comment on above: Performed By: #### C BC, ADIFF, ANEU, PHV, LIP, CMP, GFR #### [address] [address] Platelet mean volume (Bld) [Entitic vol] 9.8 fL Normal 6.4-10.5 [facility] ([place]) Comment on above: Performed By: #### C BC, ADIFF, ANEU, PHV, LIP, CMP, GFR #### [address] [address] Platelets (Bld) [#/Vol] 129 10 3/mcL Low 150-450 [facility] ([place]) Comment on above: Performed By: #### C BC, ADIFF, ANEU, PHV, LIP, CMP, GFR #### [address] [address] RBC (Bld) [#/Vol] 4.40 10 6/mcL Low 4.50-6.00 [facility] ([place]) Comment on above: Performed By: #### C BC, ADIFF, ANEU, PHV, LIP, CMP, GFR #### [address] [address] WBC (Bld) [#/Vol] 6.50 10 3/mcL Normal 4.50-10.80 [facility] ([place]) Comment on above: Performed By: #### C BC, ADIFF, ANEU, PHV, LIP, CMP, GFR #### [address] [address] CURon 11-17-2019 CUR . MICRO - Microbiology PROCEDURE: Urine Culture [*1] SOURCE: Urine, Clean Catch BODY SITE: COLLECTED DATE/TIME: 11/15/2019 00:08 EDT RECEIVED DATE/TIME: 11/15/2019 07:59 EDT START DATE/TIME: 11/15/2019 08:00 EDT FREE TEXT SOURCE: FINAL REPORTS Final Report [] Verified Date/Time/Personnel: 11/17/2019 07:35 EDT No growth at 48 hours. PRELIMINARY REPORTS Preliminary Report [] Verified Date/Time/Personnel: 11/16/2019 08:20 EDT No growth to date Performing Locations *1: This test was performed at: [facility], [address] [place] [address], [address] [place] [address] ([place]) Comment on above: Performed By: #### C BC, ADIFF, ANEU, PHV, LIP, CMP, GFR #### [address] [address] LIPIDon 11-17-2019 Cholesterol [Mass/Vol] 120 mg/dL Normal 50-199 [facility] ([place]) Comment on above: Result Comment: Chol esterol Reference Interval: Less than 200 Desirable 200-239 Borderline high risk 240 and above High risk Performed By: #### C BC, ADIFF, ANEU, PHV, LIP, CMP, GFR #### [address] [address] Cholesterol in HDL [Mass/Vol] 40 mg/dL Normal 40-59 [facility] ([place]) Comment on above: Result Comment: HDL Reference Interval: Less than 40 Low - high risk 60 or above Optimal/lowers risk Performed By: #### C BC, ADIFF, ANEU, PHV, LIP, CMP, GFR #### [place] [address] Cholesterol in LDL [Mass/Vol] 56 mg/dL Normal 0-129 [facility] ([place]) Comment on above: Result Comment: LDL is a calculated result and requires a 12- hr fast. LDL Reference Interval: Less than 100 Optimal 100-129 Near or above optimal 130-159 Borderline high risk 160-189 High risk 190 and above Very high risk Performed By: #### C BC, ADIFF, ANEU, PHV, LIP, CMP, GFR #### [place] [address] Triglyceride [Mass/Vol] 118 mg/dL Normal 3-149 [facility] ([place]) Comment on above: Result Comment: Trig lyceride Reference Interval: Less than 150 Normal 150-199 Borderline high risk 200-499 High risk 500 or higher Very high risk Performed By: #### C BC, ADIFF, ANEU, PHV, LIP, CMP, GFR #### [place] [address] TSHon 11-17-2019 TSH Qn 1.190 mcIU/mL Normal 0.360-3.740 [facility] ([place]) Comment on above: Performed By: #### C BC, ADIFF, ANEU, PHV, LIP, CMP, GFR #### [place] [address] .Auto Diffon 11-16-2019 Ammonia (P) [Mass/Vol] 0.90 10 3/mcL Normal 0.09-1.40 [facility] ([place]) Comment on above: Performed By: #### C BC, ADIFF, ANEU, PHV, LIP, CMP, GFR #### [place] [address] Basophils (Bld) [#/Vol] 0.10 10 3/mcL Normal 0.00-0.27 [facility] ([place]) Comment on above: Performed By: #### C BC, ADIFF, ANEU, PHV, LIP, CMP, GFR #### [address] [address] Basophils/100 WBC (Bld) 0.5 % Normal 0.0-2.5 [facility] ([place]) Comment on above: Performed By: #### C BC, ADIFF, ANEU, PHV, LIP, CMP, GFR #### [address] [address] Eosinophils (Bld) [#/Vol] 0.20 10 3/mcL Normal 0.00-0.65 [facility] ([place]) Comment on above: Performed By: #### C BC, ADIFF, ANEU, PHV, LIP, CMP, GFR #### [address] [address] Eosinophils/100 WBC (Bld) 1.4 % Normal 0.0-6.0 [facility] ([place]) Comment on above: Performed By: #### C BC, ADIFF, ANEU, PHV, LIP, CMP, GFR #### [address] [address] Lymphocytes (Bld) [#/Vol] 2.90 10 3/mcL Normal 0.90-4.32 [facility] ([place]) Comment on above: Performed By: #### C BC, ADIFF, ANEU, PHV, LIP, CMP, GFR #### [address] [address] Lymphocytes/100 WBC (Bld) 24.2 % Normal 20.0-40.0 [facility] ([place]) Comment on above: Performed By: #### C BC, ADIFF, ANEU, PHV, LIP, CMP, GFR #### [address] [address] Monocytes/100 WBC (Bld) 7.5 % Normal 2.0-13.0 [facility] ([place]) Comment on above: Performed By: #### C BC, ADIFF, ANEU, PHV, LIP, CMP, GFR #### [address] [address] Neutrophils/100 WBC (Bld) 66.4 % Normal 50.0-75.0 [facility] ([place]) Comment on above: Performed By: #### C BC, ADIFF, ANEU, PHV, LIP, CMP, GFR #### [address] [address] .GFRon 11-16-2019 GFR >60 Normal [facility] ([place]) Comment on above: Result Comment: GFR Population mean for , Non- Americans Ages 20-29 = 116 mL/min/1.73 sq.m. Ages 30-39 = 107 mL/min/1.73 sq.m. Ages 40-49 = 99 mL/min/1.73 sq.m. Ages 50-59 = 93 mL/min/1.73 sq.m. Ages 60-69 = 85 mL/min/1.73 sq.m. Ages 70+ = 75 mL/min/1.73 sq.m. Chronic Kidney Disease: Less than 60 mL/min/1.73 square meters End Stage Renal Disease: Less than 15 mL/min/1.73 square meters Performed By: #### C BC, ADIFF, ANEU, PHV, LIP, CMP, GFR #### [address] [address] GFR Non- >60 Normal [facility] ([place]) Comment on above: Result Comment: GFR Population mean for , Non- Americans Ages 20-29 = 116 mL/min/1.73 sq.m. Ages 30-39 = 107 mL/min/1.73 sq.m. Ages 40-49 = 99 mL/min/1.73 sq.m. Ages 50-59 = 93 mL/min/1.73 sq.m. Ages 60-69 = 85 mL/min/1.73 sq.m. Ages 70+ = 75 mL/min/1.73 sq.m. Chronic Kidney Disease: Less than 60 mL/min/1.73 square meters End Stage Renal Disease: Less than 15 mL/min/1.73 square meters Performed By: #### C BC, ADIFF, ANEU, PHV, LIP, CMP, GFR #### [address] [address] .NEUABSon 11-16-2019 Neutrophils (Bld) [#/Vol] 7.80 10 3/mcL Normal 2.25-8.10 [facility] ([place]) Comment on above: Performed By: #### C BC, ADIFF, ANEU, PHV, LIP, CMP, GFR #### [address] [address] BMPon 11-16-2019 Potassium [Moles/Vol] 3.9 mmol/L Normal 3.5-5.0 [facility] [place] Comment on above: Result Comment: Spec imen slightly hemolyzed. Results may be falsely elevated. Performed By: #### C BC, ADIFF, ANEU, PHV, LIP, CMP, GFR #### [place] [address] Calcium [Mass/Vol] 8.7 mg/dL Normal 8.4-10.1 [facility] ([place]) Comment on above: Performed By: #### C BC, ADIFF, ANEU, PHV, LIP, CMP, GFR #### [place] [address] Chloride [Moles/Vol] 105 mmol/L Normal 98-110 [facility] ([place]) Comment on above: Performed By: #### C BC, ADIFF, ANEU, PHV, LIP, CMP, GFR #### [address] [address] CO2 [Moles/Vol] 22 mmol/L Normal 22-32 [facility] ([place]) Comment on above: Performed By: #### C BC, ADIFF, ANEU, PHV, LIP, CMP, GFR #### [address] [address] Creatinine [Mass/Vol] 0.56 mg/dL Low 0.60-1.40 [facility] [place] Comment on above: Performed By: #### C BC, ADIFF, ANEU, PHV, LIP, CMP, GFR #### [address] [address] Electrolyte Balance 8.0 mEq/L Normal 4.0-15.0 [facility] ([place]) Comment on above: Performed By: #### C BC, ADIFF, ANEU, PHV, LIP, CMP, GFR #### [address] [address] Glucose [Mass/Vol] 190 mg/dL High 70-110 [facility] ([place]) Comment on above: Performed By: #### C BC, ADIFF, ANEU, PHV, LIP, CMP, GFR #### [address] [address] Sodium [Moles/Vol] 135 mmol/L Low 136-145 [facility] ([place]) Comment on above: Performed By: #### C BC, ADIFF, ANEU, PHV, LIP, CMP, GFR #### [address] [address] Urea nitrogen [Mass/Vol] 18.0 mg/dL Normal 8.0-22.0 [facility] ([place]) Comment on above: Performed By: #### C BC, ADIFF, ANEU, PHV, LIP, CMP, GFR #### [address] [address] Urea nitrogen/Creatinine [Mass ratio] 32.1 ratio High 10.0-22.0 [facility] ([place]) Comment on above: Performed By: #### C BC, ADIFF, ANEU, PHV, LIP, CMP, GFR #### [address] [address] CBCon 11-16-2019 Erythrocyte distribution width (RBC) [Ratio] 17.5 % High 11.5-15.5 [facility] ([place]) Comment on above: Performed By: #### C BC, ADIFF, ANEU, PHV, LIP, CMP, GFR #### [address] [address] Hematocrit (Bld) [Volume fraction] 36.9 % Low 40.0-52.0 [facility] ([place]) Comment on above: Performed By: #### C BC, ADIFF, ANEU, PHV, LIP, CMP, GFR #### [address] [address] Hemoglobin (Bld) [Mass/Vol] 12.1 G/dL Low 13.0-17.5 [facility] ([place]) Comment on above: Performed By: #### C BC, ADIFF, ANEU, PHV, LIP, CMP, GFR #### [address] [address] MCH (RBC) [Entitic mass] 25.8 pg Low 27.0-33.0 [facility] ([place]) Comment on above: Performed By: #### C BC, ADIFF, ANEU, PHV, LIP, CMP, GFR #### [address] [address] MCHC (RBC) [Mass/Vol] 32.8 G/dL Normal 32.0-36.0 [facility] [place] Comment on above: Performed By: #### C BC, ADIFF, ANEU, PHV, LIP, CMP, GFR #### [address] [address] MCV (RBC) [Entitic vol] 78.7 fL Low 81.0-100.0 [facility] ([place]) Comment on above: Performed By: #### C BC, ADIFF, ANEU, PHV, LIP, CMP, GFR #### [address] [address] Platelet mean volume (Bld) [Entitic vol] 9.7 fL Normal 6.4-10.5 [facility] ([place]) Comment on above: Performed By: #### C BC, ADIFF, ANEU, PHV, LIP, CMP, GFR #### [place] [id number] Platelets (Bld) [#/Vol] 132 10 3/mcL Low 150-450 [facility] ([place]) Comment on above: Performed By: #### C BC, ADIFF, ANEU, PHV, LIP, CMP, GFR #### [address] [address] RBC (Bld) [#/Vol] 4.70 10 6/mcL Normal 4.50-6.00 [facility] ([place]) Comment on above: Performed By: #### C BC, ADIFF, ANEU, PHV, LIP, CMP, GFR #### [address] [address] WBC (Bld) [#/Vol] 11.80 10 3/mcL High 4.50-10.80 [facility] [place] Comment on above: Performed By: #### C BC, ADIFF, ANEU, PHV, LIP, CMP, GFR #### [address] [address] COVIDon 11-16-2019 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 This test was developed and its performance characteristics determined by [facility]'s [facility] [place]. This test has been authorized by FDA under an Emergency Use Authorization (EUA). This test has been validated in accordance with the FDA's Guidance Document Policy for Diagnostics Testing in Laboratories Certified to Perform High Complexity Testing under CLIA prior to Emergency use Authorization for Coronavirus Disease 2019 during the Public Health Emergency issued on September 17, 2019. Performed By: [facility] [employer] [place] [address] Respiratory Supervisor: Calvin Costa III, M.D. 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 YESENIA#: [id number] Phone#: Performed By: #### C BC, ADIFF, ANEU, PHV, LIP, CMP, GFR #### [address] [address] .Auto Diffon 11-15-2019 Ammonia (P) [Mass/Vol] 1.80 10 3/mcL High 0.09-1.40 [facility] ([place]) Comment on above: Performed By: #### C BC, ADIFF, ANEU, PHV, LIP, CMP, GFR #### [address] [address] Basophils (Bld) [#/Vol] 0.00 10 3/mcL Normal 0.00-0.27 [facility] ([place]) Comment on above: Performed By: #### C BC, ADIFF, ANEU, PHV, LIP, CMP, GFR #### [address] [address] Basophils/100 WBC (Bld) 0.1 % Normal 0.0-2.5 [facility] ([place]) Comment on above: Performed By: #### C BC, ADIFF, ANEU, PHV, LIP, CMP, GFR #### [address] [address] Eosinophils (Bld) [#/Vol] 0.00 10 3/mcL Normal 0.00-0.65 [facility] ([place]) Comment on above: Performed By: #### C BC, ADIFF, ANEU, PHV, LIP, CMP, GFR #### [address] [address] Eosinophils/100 WBC (Bld) 0.0 % Normal 0.0-6.0 [facility] ([place]) Comment on above: Performed By: #### C BC, ADIFF, ANEU, PHV, LIP, CMP, GFR #### [address] [address] Lymphocytes (Bld) [#/Vol] 1.80 10 3/mcL Normal 0.90-4.32 [facility] ([place]) Comment on above: Performed By: #### C BC, ADIFF, ANEU, PHV, LIP, CMP, GFR #### [address] [address] Lymphocytes/100 WBC (Bld) 10.4 % Low 20.0-40.0 [facility] ([place]) Comment on above: Performed By: #### C BC, ADIFF, ANEU, PHV, LIP, CMP, GFR #### [address] [address] Monocytes/100 WBC (Bld) 10.4 % Normal 2.0-13.0 [facility] ([place]) Comment on above: Performed By: #### C BC, ADIFF, ANEU, PHV, LIP, CMP, GFR #### [address] [address] Neutrophils/100 WBC (Bld) 79.1 % High 50.0-75.0 [facility] ([place]) Comment on above: Performed By: #### C BC, ADIFF, ANEU, PHV, LIP, CMP, GFR #### [address] [address] Ammonia (P) [Mass/Vol] 1.20 10 3/mcL Normal 0.09-1.40 [facility] ([place]) Comment on above: Performed By: #### C BC, ADIFF, ANEU, PHV, LIP, CMP, GFR #### [address] [address] Basophils (Bld) [#/Vol] 0.00 10 3/mcL Normal 0.00-0.27 [facility] ([place]) Comment on above: Performed By: #### C BC, ADIFF, ANEU, PHV, LIP, CMP, GFR #### [address] [address] Basophils/100 WBC (Bld) 0.2 % Normal 0.0-2.5 [facility] ([place]) Comment on above: Performed By: #### C BC, ADIFF, ANEU, PHV, LIP, CMP, GFR #### [address] [address] Eosinophils (Bld) [#/Vol] 0.00 10 3/mcL Normal 0.00-0.65 [facility] ([place]) Comment on above: Performed By: #### C BC, ADIFF, ANEU, PHV, LIP, CMP, GFR #### [address] [address] Eosinophils/100 WBC (Bld) 0.0 % Normal 0.0-6.0 [facility] ([place]) Comment on above: Performed By: #### C BC, ADIFF, ANEU, PHV, LIP, CMP, GFR #### [address] [address] Lymphocytes (Bld) [#/Vol] 2.10 10 3/mcL Normal 0.90-4.32 [facility] ([place]) Comment on above: Performed By: #### C BC, ADIFF, ANEU, PHV, LIP, CMP, GFR #### [address] [address] Lymphocytes/100 WBC (Bld) 13.1 % Low 20.0-40.0 [facility] ([place]) Comment on above: Performed By: #### C BC, ADIFF, ANEU, PHV, LIP, CMP, GFR #### [address] [address] Monocytes/100 WBC (Bld) 7.7 % Normal 2.0-13.0 [facility] ([place]) Comment on above: Performed By: #### C BC, ADIFF, ANEU, PHV, LIP, CMP, GFR #### [address] [address] Neutrophils/100 WBC (Bld) 79.0 % High 50.0-75.0 [facility] ([place]) Comment on above: Performed By: #### C BC, ADIFF, ANEU, PHV, LIP, CMP, GFR #### [address] [address] .GFRon 11-15-2019 GFR >60 Normal [facility] ([place]) Comment on above: Result Comment: GFR Population mean for , Non- Americans Ages 20-29 = 116 mL/min/1.73 sq.m. Ages 30-39 = 107 mL/min/1.73 sq.m. Ages 40-49 = 99 mL/min/1.73 sq.m. Ages 50-59 = 93 mL/min/1.73 sq.m. Ages 60-69 = 85 mL/min/1.73 sq.m. Ages 70+ = 75 mL/min/1.73 sq.m. Chronic Kidney Disease: Less than 60 mL/min/1.73 square meters End Stage Renal Disease: Less than 15 mL/min/1.73 square meters Performed By: #### C BC, ADIFF, ANEU, PHV, LIP, CMP, GFR #### [address] [address] GFR Non- >60 Normal [facility] ([place]) Comment on above: Result Comment: GFR Population mean for , Non- Americans Ages 20-29 = 116 mL/min/1.73 sq.m. Ages 30-39 = 107 mL/min/1.73 sq.m. Ages 40-49 = 99 mL/min/1.73 sq.m. Ages 50-59 = 93 mL/min/1.73 sq.m. Ages 60-69 = 85 mL/min/1.73 sq.m. Ages 70+ = 75 mL/min/1.73 sq.m. Chronic Kidney Disease: Less than 60 mL/min/1.73 square meters End Stage Renal Disease: Less than 15 mL/min/1.73 square meters Performed By: #### C BC, ADIFF, ANEU, PHV, LIP, CMP, GFR #### [address] [address] GFR Non- >60 Normal [facility] ([place]) Comment on above: Result Comment: GFR Population mean for , Non- Americans Ages 20-29 = 116 mL/min/1.73 sq.m. Ages 30-39 = 107 mL/min/1.73 sq.m. Ages 40-49 = 99 mL/min/1.73 sq.m. Ages 50-59 = 93 mL/min/1.73 sq.m. Ages 60-69 = 85 mL/min/1.73 sq.m. Ages 70+ = 75 mL/min/1.73 sq.m. Chronic Kidney Disease: Less than 60 mL/min/1.73 square meters End Stage Renal Disease: Less than 15 mL/min/1.73 square meters Performed By: #### C BC, ADIFF, ANEU, PHV, LIP, CMP, GFR #### [address] [address] GFR >60 Normal [facility] ([place]) Comment on above: Result Comment: GFR Population mean for , Non- Americans Ages 20-29 = 116 mL/min/1.73 sq.m. Ages 30-39 = 107 mL/min/1.73 sq.m. Ages 40-49 = 99 mL/min/1.73 sq.m. Ages 50-59 = 93 mL/min/1.73 sq.m. Ages 60-69 = 85 mL/min/1.73 sq.m. Ages 70+ = 75 mL/min/1.73 sq.m. Chronic Kidney Disease: Less than 60 mL/min/1.73 square meters End Stage Renal Disease: Less than 15 mL/min/1.73 square meters Performed By: #### C BC, ADIFF, ANEU, PHV, LIP, CMP, GFR #### [address] [address] GFR >60 Normal [facility] ([place]) Comment on above: Result Comment: GFR Population mean for , Non- Americans Ages 20-29 = 116 mL/min/1.73 sq.m. Ages 30-39 = 107 mL/min/1.73 sq.m. Ages 40-49 = 99 mL/min/1.73 sq.m. Ages 50-59 = 93 mL/min/1.73 sq.m. Ages 60-69 = 85 mL/min/1.73 sq.m. Ages 70+ = 75 mL/min/1.73 sq.m. Chronic Kidney Disease: Less than 60 mL/min/1.73 square meters End Stage Renal Disease: Less than 15 mL/min/1.73 square meters Performed By: #### C BC, ADIFF, ANEU, PHV, LIP, CMP, GFR #### [address] [address] GFR Non- >60 Normal [facility] ([place]) Comment on above: Result Comment: GFR Population mean for , Non- Americans Ages 20-29 = 116 mL/min/1.73 sq.m. Ages 30-39 = 107 mL/min/1.73 sq.m. Ages 40-49 = 99 mL/min/1.73 sq.m. Ages 50-59 = 93 mL/min/1.73 sq.m. Ages 60-69 = 85 mL/min/1.73 sq.m. Ages 70+ = 75 mL/min/1.73 sq.m. Chronic Kidney Disease: Less than 60 mL/min/1.73 square meters End Stage Renal Disease: Less than 15 mL/min/1.73 square meters Performed By: #### C BC, ADIFF, ANEU, PHV, LIP, CMP, GFR #### [address] [address] GFR >60 Normal [facility] ([place]) Comment on above: Result Comment: GFR Population mean for , Non- Americans Ages 20-29 = 116 mL/min/1.73 sq.m. Ages 30-39 = 107 mL/min/1.73 sq.m. Ages 40-49 = 99 mL/min/1.73 sq.m. Ages 50-59 = 93 mL/min/1.73 sq.m. Ages 60-69 = 85 mL/min/1.73 sq.m. Ages 70+ = 75 mL/min/1.73 sq.m. Chronic Kidney Disease: Less than 60 mL/min/1.73 square meters End Stage Renal Disease: Less than 15 mL/min/1.73 square meters Performed By: #### C BC, ADIFF, ANEU, PHV, LIP, CMP, GFR #### [address] [address] GFR Non- >60 Normal [facility] ([place]) Comment on above: Result Comment: GFR Population mean for , Non- Americans Ages 20-29 = 116 mL/min/1.73 sq.m. Ages 30-39 = 107 mL/min/1.73 sq.m. Ages 40-49 = 99 mL/min/1.73 sq.m. Ages 50-59 = 93 mL/min/1.73 sq.m. Ages 60-69 = 85 mL/min/1.73 sq.m. Ages 70+ = 75 mL/min/1.73 sq.m. Chronic Kidney Disease: Less than 60 mL/min/1.73 square meters End Stage Renal Disease: Less than 15 mL/min/1.73 square meters Performed By: #### C BC, ADIFF, ANEU, PHV, LIP, CMP, GFR #### [address] [address] GFR Non- >60 Normal [facility] ([place]) Comment on above: Result Comment: GFR Population mean for , Non- Americans Ages 20-29 = 116 mL/min/1.73 sq.m. Ages 30-39 = 107 mL/min/1.73 sq.m. Ages 40-49 = 99 mL/min/1.73 sq.m. Ages 50-59 = 93 mL/min/1.73 sq.m. Ages 60-69 = 85 mL/min/1.73 sq.m. Ages 70+ = 75 mL/min/1.73 sq.m. Chronic Kidney Disease: Less than 60 mL/min/1.73 square meters End Stage Renal Disease: Less than 15 mL/min/1.73 square meters Performed By: #### C BC, ADIFF, ANEU, PHV, LIP, CMP, GFR #### [address] [address] GFR >60 Normal [facility] ([place]) Comment on above: Result Comment: GFR Population mean for , Non- Americans Ages 20-29 = 116 mL/min/1.73 sq.m. Ages 30-39 = 107 mL/min/1.73 sq.m. Ages 40-49 = 99 mL/min/1.73 sq.m. Ages 50-59 = 93 mL/min/1.73 sq.m. Ages 60-69 = 85 mL/min/1.73 sq.m. Ages 70+ = 75 mL/min/1.73 sq.m. Chronic Kidney Disease: Less than 60 mL/min/1.73 square meters End Stage Renal Disease: Less than 15 mL/min/1.73 square meters Performed By: #### C BC, ADIFF, ANEU, PHV, LIP, CMP, GFR #### [address] [address] .NEUABSon 11-15-2019 Neutrophils (Bld) [#/Vol] 13.50 10 3/mcL High 2.25-8.10 [facility] ([place]) Comment on above: Performed By: #### C BC, ADIFF, ANEU, PHV, LIP, CMP, GFR #### [address] [address] Neutrophils (Bld) [#/Vol] 12.60 10 3/mcL High 2.25-8.10 [facility] ([place]) Comment on above: Performed By: #### C BC, ADIFF, ANEU, PHV, LIP, CMP, GFR #### [address] [address] APTTon 11-15-2019 aPTT Coag (Bld) [Time] 30.6 s Normal 25.0-35.0 [facility] [place] Comment on above: Result Comment: For Heparin anticoagulation therapy, the recommended therapeutic range is: 54-77 seconds (APTT Correlation with Anti-Xa therapeutic range of 0.3-0.7 units/ml). PLEASE REFERENCE THE PHARMACY PROTOCOL FOR DOSING. Performed By: #### C BC, ADIFF, ANEU, PHV, LIP, CMP, GFR #### [address] [address] aPTT Coag (Bld) [Time] None Normal [facility] [place] Comment on above: Performed By: #### C BC, ADIFF, ANEU, PHV, LIP, CMP, GFR #### [address] [address] BMPon 11-15-2019 Creatinine [Mass/Vol] 0.57 mg/dL Low 0.60-1.40 [facility] [place] Comment on above: Order Comment: while on insulin infusion Performed By: #### C BC, ADIFF, ANEU, PHV, LIP, CMP, GFR #### [address] [address] Urea nitrogen/Creatinine [Mass ratio] 54.4 ratio High 10.0-22.0 [facility] ([place]) Comment on above: Order Comment: while on insulin infusion Performed By: #### C BC, ADIFF, ANEU, PHV, LIP, CMP, GFR #### [address] [address] Calcium [Mass/Vol] 8.0 mg/dL Low 8.4-10.1 [facility]) Comment on above: Order Comment: while on insulin infusion Performed By: #### C BC, ADIFF, ANEU, PHV, LIP, CMP, GFR #### [address] [address] Chloride [Moles/Vol] 104 mmol/L Normal 98-110 [facility]) Comment on above: Order Comment: while on insulin infusion Performed By: #### C BC, ADIFF, ANEU, PHV, LIP, CMP, GFR #### [address] [address] CO2 [Moles/Vol] 21 mmol/L Low 22-32 [facility] ([place]) Comment on above: Order Comment: while on insulin infusion Performed By: #### C BC, ADIFF, ANEU, PHV, LIP, CMP, GFR #### [address] [address] Electrolyte Balance 10.0 mEq/L Normal 4.0-15.0 [facility] ([place]) Comment on above: Order Comment: while on insulin infusion Performed By: #### C BC, ADIFF, ANEU, PHV, LIP, CMP, GFR #### [address] [address] Glucose [Mass/Vol] 277 mg/dL High 70-110 [facility] ([place]) Comment on above: Order Comment: while on insulin infusion Performed By: #### C BC, ADIFF, ANEU, PHV, LIP, CMP, GFR #### [address] [address] Potassium [Moles/Vol] 3.8 mmol/L Normal 3.5-5.0 [facility] [place] Comment on above: Order Comment: while on insulin infusion Performed By: #### C BC, ADIFF, ANEU, PHV, LIP, CMP, GFR #### [address] [address] Sodium [Moles/Vol] 135 mmol/L Low 136-145 [facility] ([place]) Comment on above: Order Comment: while on insulin infusion Performed By: #### C BC, ADIFF, ANEU, PHV, LIP, CMP, GFR #### [address] [address] Urea nitrogen [Mass/Vol] 31.0 mg/dL High 8.0-22.0 [facility] ([place]) Comment on above: Order Comment: while on insulin infusion Performed By: #### C BC, ADIFF, ANEU, PHV, LIP, CMP, GFR #### [address] [address] Calcium [Mass/Vol] 8.6 mg/dL Normal 8.4-10.1 [facility] ([place]) Comment on above: Order Comment: while on insulin infusion Performed By: #### C BC, ADIFF, ANEU, PHV, LIP, CMP, GFR #### [address] [address] Chloride [Moles/Vol] 105 mmol/L Normal 98-110 [facility] ([place]) Comment on above: Order Comment: while on insulin infusion Performed By: #### C BC, ADIFF, ANEU, PHV, LIP, CMP, GFR #### [address] [address] CO2 [Moles/Vol] 25 mmol/L Normal 22-32 [facility] ([place]) Comment on above: Order Comment: while on insulin infusion Performed By: #### C BC, ADIFF, ANEU, PHV, LIP, CMP, GFR #### [address] [address] Creatinine [Mass/Vol] 0.70 mg/dL Normal 0.60-1.40 [facility] [place] Comment on above: Order Comment: while on insulin infusion Performed By: #### C BC, ADIFF, ANEU, PHV, LIP, CMP, GFR #### [address] [address] Electrolyte Balance 8.0 mEq/L Normal 4.0-15.0 [facility] ([place]) Comment on above: Order Comment: while on insulin infusion Performed By: #### C BC, ADIFF, ANEU, PHV, LIP, CMP, GFR #### [address] [address] Glucose [Mass/Vol] 152 mg/dL High 70-110 [facility] ([place]) Comment on above: Order Comment: while on insulin infusion Performed By: #### C BC, ADIFF, ANEU, PHV, LIP, CMP, GFR #### [address] [address] Potassium [Moles/Vol] 3.6 mmol/L Normal 3.5-5.0 [facility] [place] Comment on above: Order Comment: while on insulin infusion Performed By: #### C BC, ADIFF, ANEU, PHV, LIP, CMP, GFR #### [address] [address] Sodium [Moles/Vol] 138 mmol/L Normal 136-145 [facility] ([place]) Comment on above: Order Comment: while on insulin infusion Performed By: #### C BC, ADIFF, ANEU, PHV, LIP, CMP, GFR #### [address] [address] Urea nitrogen [Mass/Vol] 37.0 mg/dL High 8.0-22.0 [facility] ([place]) Comment on above: Order Comment: while on insulin infusion Performed By: #### C BC, ADIFF, ANEU, PHV, LIP, CMP, GFR #### [address] [address] Urea nitrogen/Creatinine [Mass ratio] 52.9 ratio High 10.0-22.0 [facility] ([place]) Comment on above: Order Comment: while on insulin infusion Performed By: #### C BC, ADIFF, ANEU, PHV, LIP, CMP, GFR #### [address] [address] Calcium [Mass/Vol] 8.8 mg/dL Normal 8.4-10.1 [facility] ([place]) Comment on above: Order Comment: while on insulin infusion Performed By: #### C BC, ADIFF, ANEU, PHV, LIP, CMP, GFR #### [address] [address] Chloride [Moles/Vol] 106 mmol/L Normal 98-110 [facility] ([place]) Comment on above: Order Comment: while on insulin infusion Performed By: #### C BC, ADIFF, ANEU, PHV, LIP, CMP, GFR #### [address] [address] CO2 [Moles/Vol] 27 mmol/L Normal 22-32 [facility] ([place]) Comment on above: Order Comment: while on insulin infusion Performed By: #### C BC, ADIFF, ANEU, PHV, LIP, CMP, GFR #### [address] [address] Creatinine [Mass/Vol] 0.78 mg/dL Normal 0.60-1.40 [facility] [place] Comment on above: Order Comment: while on insulin infusion Performed By: #### C BC, ADIFF, ANEU, PHV, LIP, CMP, GFR #### [address] [address] Electrolyte Balance 6.0 mEq/L Normal 4.0-15.0 [facility] ([place]) Comment on above: Order Comment: while on insulin infusion Performed By: #### C BC, ADIFF, ANEU, PHV, LIP, CMP, GFR #### [address] [address] Glucose [Mass/Vol] 91 mg/dL Normal 70-110 [facility] ([place]) Comment on above: Order Comment: while on insulin infusion Performed By: #### C BC, ADIFF, ANEU, PHV, LIP, CMP, GFR #### [address] [address] Potassium [Moles/Vol] 3.8 mmol/L Normal 3.5-5.0 [facility] [place] Comment on above: Order Comment: while on insulin infusion Performed By: #### C BC, ADIFF, ANEU, PHV, LIP, CMP, GFR #### [address] [address] Sodium [Moles/Vol] 139 mmol/L Normal 136-145 [facility] ([place]) Comment on above: Order Comment: while on insulin infusion Performed By: #### C BC, ADIFF, ANEU, PHV, LIP, CMP, GFR #### [address] [address] Urea nitrogen [Mass/Vol] 42.0 mg/dL High 8.0-22.0 [facility] ([place] Comment on above: Order Comment: while on insulin infusion Performed By: #### C BC, ADIFF, ANEU, PHV, LIP, CMP, GFR #### [address] [address] Urea nitrogen/Creatinine [Mass ratio] 53.8 ratio High 10.0-22.0 [facility] ([place] Comment on above: Order Comment: while on insulin infusion Performed By: #### C BC, ADIFF, ANEU, PHV, LIP, CMP, GFR #### [address] [address] Creatinine [Mass/Vol] 0.93 mg/dL Normal 0.60-1.40 [facility] [place] Comment on above: Order Comment: while on insulin infusion Performed By: #### C BC, ADIFF, ANEU, PHV, LIP, CMP, GFR #### [address] [address] Urea nitrogen/Creatinine [Mass ratio] 51.6 ratio High 10.0-22.0 [facility] ([place]) Comment on above: Order Comment: while on insulin infusion Performed By: #### C BC, ADIFF, ANEU, PHV, LIP, CMP, GFR #### [address] [address] Calcium [Mass/Vol] 8.8 mg/dL Normal 8.4-10.1 [facility] ([place]) Comment on above: Order Comment: while on insulin infusion Performed By: #### C BC, ADIFF, ANEU, PHV, LIP, CMP, GFR #### [address] [address] Chloride [Moles/Vol] 107 mmol/L Normal 98-110 [facility] ([place]) Comment on above: Order Comment: while on insulin infusion Performed By: #### C BC, ADIFF, ANEU, PHV, LIP, CMP, GFR #### [address] [address] CO2 [Moles/Vol] 27 mmol/L Normal 22-32 [facility] ([place]) Comment on above: Order Comment: while on insulin infusion Performed By: #### C BC, ADIFF, ANEU, PHV, LIP, CMP, GFR #### [address] [address] Electrolyte Balance 5.0 mEq/L Normal 4.0-15.0 [facility] ([place]) Comment on above: Order Comment: while on insulin infusion Performed By: #### C BC, ADIFF, ANEU, PHV, LIP, CMP, GFR #### [address] [address] Glucose [Mass/Vol] 192 mg/dL High 70-110 [facility] ([place]) Comment on above: Order Comment: while on insulin infusion Performed By: #### C BC, ADIFF, ANEU, PHV, LIP, CMP, GFR #### [address] [address] Potassium [Moles/Vol] 4.0 mmol/L Normal 3.5-5.0 [facility] [place] Comment on above: Order Comment: while on insulin infusion Performed By: #### C BC, ADIFF, ANEU, PHV, LIP, CMP, GFR #### [address] [address] Sodium [Moles/Vol] 139 mmol/L Normal 136-145 [facility] ([place]) Comment on above: Order Comment: while on insulin infusion Performed By: #### C BC, ADIFF, ANEU, PHV, LIP, CMP, GFR #### [address] [address] Urea nitrogen [Mass/Vol] 48.0 mg/dL High 8.0-22.0 [facility] ([place]) Comment on above: Order Comment: while on insulin infusion Performed By: #### C BC, ADIFF, ANEU, PHV, LIP, CMP, GFR #### [address] [address] Creatinine [Mass/Vol] 1.05 mg/dL Normal 0.60-1.40 [facility] [place] Comment on above: Performed By: #### C BC, ADIFF, ANEU, PHV, LIP, CMP, GFR #### [address] [address] Urea nitrogen/Creatinine [Mass ratio] 40.0 ratio High 10.0-22.0 [facility] ([place]) Comment on above: Performed By: #### C BC, ADIFF, ANEU, PHV, LIP, CMP, GFR #### [address] [address] Calcium [Mass/Vol] 8.9 mg/dL Normal 8.4-10.1 [facility] ([place]) Comment on above: Performed By: #### C BC, ADIFF, ANEU, PHV, LIP, CMP, GFR #### [address] [address] Chloride [Moles/Vol] 99 mmol/L Normal 98-110 [facility] ([place] Comment on above: Performed By: #### C BC, ADIFF, ANEU, PHV, LIP, CMP, GFR #### [address] [address] CO2 [Moles/Vol] 24 mmol/L Normal 22-32 [facility] ([place] Comment on above: Performed By: #### C BC, ADIFF, ANEU, PHV, LIP, CMP, GFR #### [address] [address] Electrolyte Balance 13.0 mEq/L Normal 4.0-15.0 [facility] ([place]) Comment on above: Performed By: #### C BC, ADIFF, ANEU, PHV, LIP, CMP, GFR #### [address] [address] Glucose [Mass/Vol] 347 mg/dL High 70-110 [facility] ([place]) Comment on above: Performed By: #### C BC, ADIFF, ANEU, PHV, LIP, CMP, GFR #### [address] [address] Potassium [Moles/Vol] 4.5 mmol/L Normal 3.5-5.0 [facility] [place] Comment on above: Performed By: #### C BC, ADIFF, ANEU, PHV, LIP, CMP, GFR #### [address] [address] Sodium [Moles/Vol] 136 mmol/L Normal 136-145 [facility] ([place]) Comment on above: Performed By: #### C BC, ADIFF, ANEU, PHV, LIP, CMP, GFR #### [address] [address] Urea nitrogen [Mass/Vol] 42.0 mg/dL High 8.0-22.0 [facility] ([place]) Comment on above: Performed By: #### C BC, ADIFF, ANEU, PHV, LIP, CMP, GFR #### [address] [address] CBCon 11-15-2019 Erythrocyte distribution width (RBC) [Ratio] 17.4 % High 11.5-15.5 [facility] ([place]) Comment on above: Performed By: #### C BC, ADIFF, ANEU, PHV, LIP, CMP, GFR #### [address] [address] Hematocrit (Bld) [Volume fraction] 39.3 % Low 40.0-52.0 [facility] ([place]) Comment on above: Performed By: #### C BC, ADIFF, ANEU, PHV, LIP, CMP, GFR #### [address] [address] Hemoglobin (Bld) [Mass/Vol] 13.0 G/dL Normal 13.0-17.5 [facility] ([place] Comment on above: Performed By: #### C BC, ADIFF, ANEU, PHV, LIP, CMP, GFR #### [address] [address] MCH (RBC) [Entitic mass] 25.4 pg Low 27.0-33.0 [facility] ([place] Comment on above: Performed By: #### C BC, ADIFF, ANEU, PHV, LIP, CMP, GFR #### [place] [id number] MCHC (RBC) [Mass/Vol] 33.0 G/dL Normal 32.0-36.0 [facility] [place] Comment on above: Performed By: #### C BC, ADIFF, ANEU, PHV, LIP, CMP, GFR #### [address] [address] MCV (RBC) [Entitic vol] 77.0 fL Low 81.0-100.0 [facility] ([place]) Comment on above: Performed By: #### C BC, ADIFF, ANEU, PHV, LIP, CMP, GFR #### [address] [address] Platelet mean volume (Bld) [Entitic vol] 9.7 fL Normal 6.4-10.5 [facility] ([place]) Comment on above: Performed By: #### C BC, ADIFF, ANEU, PHV, LIP, CMP, GFR #### [address] [address] Platelets (Bld) [#/Vol] 200 10 3/mcL Normal 150-450 [facility] ([place]) Comment on above: Performed By: #### C BC, ADIFF, ANEU, PHV, LIP, CMP, GFR #### [address] [address] RBC (Bld) [#/Vol] 5.10 10 6/mcL Normal 4.50-6.00 [facility] ([place]) Comment on above: Performed By: #### C BC, ADIFF, ANEU, PHV, LIP, CMP, GFR #### [address] [address] WBC (Bld) [#/Vol] 17.10 10 3/mcL High 4.50-10.80 [facility] [place] Comment on above: Performed By: #### C BC, ADIFF, ANEU, PHV, LIP, CMP, GFR #### [address] [address] Erythrocyte distribution width (RBC) [Ratio] 17.4 % High 11.5-15.5 [facility] ([place]) Comment on above: Performed By: #### C BC, ADIFF, ANEU, PHV, LIP, CMP, GFR #### [address] [address] Hematocrit (Bld) [Volume fraction] 43.2 % Normal 40.0-52.0 [facility] ([place]) Comment on above: Performed By: #### C BC, ADIFF, ANEU, PHV, LIP, CMP, GFR #### [address] [address] Hemoglobin (Bld) [Mass/Vol] 14.2 G/dL Normal 13.0-17.5 [facility] ([place]) Comment on above: Performed By: #### C BC, ADIFF, ANEU, PHV, LIP, CMP, GFR #### [address] [address] MCH (RBC) [Entitic mass] 25.7 pg Low 27.0-33.0 [facility] ([place]) Comment on above: Performed By: #### C BC, ADIFF, ANEU, PHV, LIP, CMP, GFR #### [address] [address] MCHC (RBC) [Mass/Vol] 32.9 G/dL Normal 32.0-36.0 [facility] [place] Comment on above: Performed By: #### C BC, ADIFF, ANEU, PHV, LIP, CMP, GFR #### [address] [address] MCV (RBC) [Entitic vol] 78.1 fL Low 81.0-100.0 [facility] ([place]) Comment on above: Performed By: #### C BC, ADIFF, ANEU, PHV, LIP, CMP, GFR #### [address] [address] Platelet mean volume (Bld) [Entitic vol] 9.6 fL Normal 6.4-10.5 [facility] ([place]) Comment on above: Performed By: #### C BC, ADIFF, ANEU, PHV, LIP, CMP, GFR #### [address] [address] Platelets (Bld) [#/Vol] 205 10 3/mcL Normal 150-450 [facility] ([place]) Comment on above: Performed By: #### C BC, ADIFF, ANEU, PHV, LIP, CMP, GFR #### [address] [address] RBC (Bld) [#/Vol] 5.53 10 6/mcL Normal 4.50-6.00 [facility] ([place]) Comment on above: Performed By: #### C BC, ADIFF, ANEU, PHV, LIP, CMP, GFR #### [address] [address] WBC (Bld) [#/Vol] 15.90 10 3/mcL High 4.50-10.80 [facility] [place] Comment on above: Performed By: #### C BC, ADIFF, ANEU, PHV, LIP, CMP, GFR #### [address] [address] CRPHSon 11-15-2019 CRP, High Sensitive 1.61 mg/L Normal 0.20-3.00 [facility] ([place]) Comment on above: Result Comment: Rela tive Risk Category and Average hs-CRP Level: Higher Risk: > 5.0 mg/L Guidelines support that hs-CRP can be used as an independent predictor of increased coronary risk; however, hs-CRP results should only be interpreted in conjunction with other cardiac risk factors in establishing overall cardiac risk for a given patient. Performed By: #### C BC, ADIFF, ANEU, PHV, LIP, CMP, GFR #### [address] [address] DIMERon 11-15-2019 Fibrin D-dimer FEU IA (Bld) [Mass/Vol] 323 ng/mL D-DU High 0-230 [facility] ([place]) Comment on above: Result Comment: Resu lts reported in D-DU ng/ml. Positive for D-dimer. A positive D-dimer may occur in the following: DVT, PE, DIC, Trauma, Cancer, Sepsis, , Rheumatoid arthritis, Myocardial infarction and Cirrhosis. Note: Not affected by Rheumatoid Factor <=1400 IU/mL The result of the D-Dimer test should be evaluated in the context of all the clinical and laboratory data available. In those instances where the laboratory result does not agree with the clinical evaluation, additional tests should be performed accordingly. Performed By: #### C BC, ADIFF, ANEU, PHV, LIP, CMP, GFR #### [address] [address] DRUGUon 11-15-2019 U pH Drug Scrn 5.0 Normal 5.0-8.0 [facility] ([place]) Comment on above: Performed By: #### C BC, ADIFF, ANEU, PHV, LIP, CMP, GFR #### [address] [address] U Specific Nadeau Drg Scrn 1.026 Normal 1.005-1.030 [facility] ([place]) Comment on above: Performed By: #### C BC, ADIFF, ANEU, PHV, LIP, CMP, GFR #### [address] [address] Drug Screen Urine Positive Abnormal [facility] ([place]) Comment on above: Performed By: #### C BC, ADIFF, ANEU, PHV, LIP, CMP, GFR #### [address] [address] Drug Screen Urine Interp Positive [facility] ([place]) Comment on above: Performed By: #### C BC, ADIFF, ANEU, PHV, LIP, CMP, GFR #### [address] [address] Urine Drugs screened: See Below Normal [facility] ([place] Comment on above: Result Comment: This drug screen is a presumptive screening only. No confirmation will be performed unless requested. Drugs screened include: Threshold Amphetamines/Methamphetamines 1,000 ng/mL Barbiturates 200 ng/mL Benzodiazepine metabolites 200 ng/mL Cannabinoids (THC metabolites) 50 ng/mL Benzoylecognine (Cocaine metab) 300 ng/mL Opiates 300 ng/mL Phencyclidine (PCP) 25 ng/mL Methadone 300 ng/mL Propoxyphene 300 ng/mL Testing has been performed FOR MEDICAL PURPOSES ONLY. Performed By: #### C BC, ADIFF, ANEU, PHV, LIP, CMP, GFR #### [address] [address] Andrew 11-15-2019 Ferritin [Mass/Vol] 24 ng/mL Low 26-388 [facility] ([place]) Comment on above: Performed By: #### C BC, ADIFF, ANEU, PHV, LIP, CMP, GFR #### [address] [address] KETUAon 11-15-2019 Ketones Ql (U) >=160 Abnormal Neg-Trace [facility] ([place]) Comment on above: Performed By: #### C BC, ADIFF, ANEU, PHV, LIP, CMP, GFR #### [address] [address] MGon 11-15-2019 Magnesium [Mass/Vol] 2.6 mg/dL High 1.6-2.4 [facility] ([place]) Comment on above: Performed By: #### C BC, ADIFF, ANEU, PHV, LIP, CMP, GFR #### [address] [address] Magnesium [Mass/Vol] 1.8 mg/dL Normal 1.6-2.4 [facility] ([place]) Comment on above: Performed By: #### C BC, ADIFF, ANEU, PHV, LIP, CMP, GFR #### [address] [address] Magnesium [Mass/Vol] 1.8 mg/dL Normal 1.6-2.4 [facility] ([place]) Comment on above: Performed By: #### C BC, ADIFF, ANEU, PHV, LIP, CMP, GFR #### [address] [address] Magnesium [Mass/Vol] 1.6 mg/dL Normal 1.6-2.4 [facility] ([place]) Comment on above: Performed By: #### C BC, ADIFF, ANEU, PHV, LIP, CMP, GFR #### [address] [address] Magnesium [Mass/Vol] 1.8 mg/dL Normal 1.6-2.4 [facility] ([place]) Comment on above: Performed By: #### C BC, ADIFF, ANEU, PHV, LIP, CMP, GFR #### [address] [address] OSMOSon 11-15-2019 Osmolality [Osmolality] 320 mOsm/kg High 275-300 [facility] ([place]) Comment on above: Performed By: #### C BC, ADIFF, ANEU, PHV, LIP, CMP, GFR #### [address] [address] PBNPon 11-15-2019 Natriuretic peptide B (Bld) [Mass/Vol] 586 pg/mL High 0-450 [facility] ([place]) Comment on above: Result Comment: NT-p roBNP results of less than 300 pg/mL effectively rules out acute congestive heart failure with 99% negative predictive value. Performed By: #### C BC, ADIFF, ANEU, PHV, LIP, CMP, GFR #### [address] [address] PHOSon 11-15-2019 Phosphate [Mass/Vol] 4.1 mg/dL Normal 2.5-4.5 [facility] ([place]) Comment on above: Performed By: #### C BC, ADIFF, ANEU, PHV, LIP, CMP, GFR #### [address] [address] Phosphate [Mass/Vol] 4.3 mg/dL Normal 2.5-4.5 [facility] ([place]) Comment on above: Performed By: #### C BC, ADIFF, ANEU, PHV, LIP, CMP, GFR #### [address] [address] Phosphate [Mass/Vol] 3.3 mg/dL Normal 2.5-4.5 [facility] ([place]) Comment on above: Performed By: #### C BC, ADIFF, ANEU, PHV, LIP, CMP, GFR #### [address] [address] Phosphate [Mass/Vol] 1.5 mg/dL Low 2.5-4.5 [facility] ([place]) Comment on above: Performed By: #### C BC, ADIFF, ANEU, PHV, LIP, CMP, GFR #### [address] [address] Phosphate [Mass/Vol] 2.1 mg/dL Low 2.5-4.5 [facility] ([place]) Comment on above: Performed By: #### C BC, ADIFF, ANEU, PHV, LIP, CMP, GFR #### [address] [address] PROon 11-15-2019 INR Coag (PPP) [Relative time] 1.0 {INR} Normal [facility] ([place]) Comment on above: Result Comment: [employer] (CHEST, 1991, 102:[id number]) recommended therapeutic range for oral anticoagulant therapy is: LOW RISK: Prophylaxis of venous thrombosis INR: 2.0-3.0 Treatment of pulmonary embolism 2.0-3.0 Prevention of systemic embolism 2.0-3.0 HIGH RISK: Mechanical prosthetic valves 2.5-3.5 Performed By: #### C BC, ADIFF, ANEU, PHV, LIP, CMP, GFR #### [address] [address] PT Coag (PPP) [Time] 11.2 s Normal 9.0-14.6 [facility] ([place]) Comment on above: Result Comment: Effe ctive 02/01/08, Protime results may be affected by some antibiotics (i.e. Ciprofloxacin, Azithromycin, Bactrim) which may potentiate the action of oral anticoagulants, with further increases in Protime/INR. Performed By: #### C BC, ADIFF, ANEU, PHV, LIP, CMP, GFR #### [place] [address] RESPIDon 11-15-2019 Adenovirus Not Detected Normal Not Detected [facility] ([place]) Comment on above: Order Comment: Order added by [email or web address] Performed By: #### C BC, ADIFF, ANEU, PHV, LIP, CMP, GFR #### [place] [address] Bordetella Parapertussis Not Detected Normal Not Detected [facility] ([place]) Comment on above: Order Comment: Order added by [email or web address] Performed By: #### C BC, ADIFF, ANEU, PHV, LIP, CMP, GFR #### [place] [address] Bordetella Pertussis Not Detected Normal Not Detected [facility] ([place]) Comment on above: Order Comment: Order added by [email or web address] Performed By: #### C BC, ADIFF, ANEU, PHV, LIP, CMP, GFR #### [address] [address] Chlamydophila pneumoniae Not Detected Normal Not Detected [facility] ([place]) Comment on above: Order Comment: Order added by [email or web address] Performed By: #### C BC, ADIFF, ANEU, PHV, LIP, CMP, GFR #### [address] [address] Coronavirus 229E (Not COVID-19) Not Detected Normal Not Detected [facility] ([place]) Comment on above: Order Comment: Order added by [email or web address] Performed By: #### C BC, ADIFF, ANEU, PHV, LIP, CMP, GFR #### [address] [address] Coronavirus HKU1 (Not COVID-19) Not Detected Normal Not Detected [facility] ([place]) Comment on above: Order Comment: Order added by [email or web address] Performed By: #### C BC, ADIFF, ANEU, PHV, LIP, CMP, GFR #### [address] [address] Coronavirus NL63 (Not COVID-19) Not Detected Normal Not Detected [facility] ([place]) Comment on above: Order Comment: Order added by [email or web address] Performed By: #### C BC, ADIFF, ANEU, PHV, LIP, CMP, GFR #### [address] [address] Coronavirus OC43 (Not COVID-19) Not Detected Normal Not Detected [facility] ([place]) Comment on above: Order Comment: Order added by [email or web address] Performed By: #### C BC, ADIFF, ANEU, PHV, LIP, CMP, GFR #### [address] [address] Human Metapneumovirus Not Detected Normal Not Detected [facility] ([place]) Comment on above: Order Comment: Order added by [email or web address] Performed By: #### C BC, ADIFF, ANEU, PHV, LIP, CMP, GFR #### [place] [address] Influenza A Not Detected Normal Not Detected [facility] ([place]) Comment on above: Order Comment: Order added by [email or web address] Performed By: #### C BC, ADIFF, ANEU, PHV, LIP, CMP, GFR #### [place] [address] Influenza B Not Detected Normal Not Detected [facility] ([place]) Comment on above: Order Comment: Order added by [email or web address] Performed By: #### C BC, ADIFF, ANEU, PHV, LIP, CMP, GFR #### [place] [address] Mycoplasma pneumoniae Not Detected Normal Not Detected [facility] ([place]) Comment on above: Order Comment: Order added by [email or web address] Performed By: #### C BC, ADIFF, ANEU, PHV, LIP, CMP, GFR #### [place] [address] Parainfluenza 1 Not Detected Normal Not Detected [facility] ([place]) Comment on above: Order Comment: Order added by [email or web address] Performed By: #### C BC, ADIFF, ANEU, PHV, LIP, CMP, GFR #### [place] [address] Parainfluenza 2 Not Detected Normal Not Detected [facility] ([place]) Comment on above: Order Comment: Order added by [email or web address] Performed By: #### C BC, ADIFF, ANEU, PHV, LIP, CMP, GFR #### [place] [address] Parainfluenza 3 Not Detected Normal Not Detected [facility] ([place]) Comment on above: Order Comment: Order added by [email or web address] Performed By: #### C BC, ADIFF, ANEU, PHV, LIP, CMP, GFR #### [address] [address] Parainfluenza 4 Not Detected Normal Not Detected [facility] ([place]) Comment on above: Order Comment: Order added by [email or web address] Performed By: #### C BC, ADIFF, ANEU, PHV, LIP, CMP, GFR #### [place] [address] Respiratory Syncytial Virus Not Detected Normal Not Detected [facility] ([place]) Comment on above: Order Comment: Order added by [email or web address] Performed By: #### C BC, ADIFF, ANEU, PHV, LIP, CMP, GFR #### [place] [address] Rhinovirus/Enterovirus Not Detected Normal Not Detecte d [facility] ([place]) Comment on above: Order Comment: Order added by [email or web address] Performed By: #### C BC, ADIFF, ANEU, PHV, LIP, CMP, GFR #### [place] [address] TROPIon 11-15-2019 Troponin I.cardiac [Mass/Vol] 0.043 ng/mL High 0.000-0.040 [facility] ([place]) Comment on above: Result Comment: Trop onin I reference ranges (03/27/14): 0.00-0.040 ng/mL Negative and non-diagnostic. >0.040 ng/mL Consistent with cardiac damage, increased clinical risk and possibility of myocardial infarction. Serial measurements, a rise & fall in test results, clinical history, appropriate symptoms and/or ECG changes may help assess possibility of DC. *Other non-acute coronary syndrome conditions such as CHF, myocarditis, pulmonary emboli, sepsis and cardiac surgery could result in myocardial damage and increased troponin levels. Performed By: #### C BC, ADIFF, ANEU, PHV, LIP, CMP, GFR #### [place] [address] Troponin I.cardiac [Mass/Vol] 0.047 ng/mL High 0.000-0.040 [facility] ([place]) Comment on above: Result Comment: Trop onin I reference ranges (03/27/14): 0.00-0.040 ng/mL Negative and non-diagnostic. >0.040 ng/mL Consistent with cardiac damage, increased clinical risk and possibility of myocardial infarction. Serial measurements, a rise & fall in test results, clinical history, appropriate symptoms and/or ECG changes may help assess possibility of DC. *Other non-acute coronary syndrome conditions such as CHF, myocarditis, pulmonary emboli, sepsis and cardiac surgery could result in myocardial damage and increased troponin levels. Performed By: #### C BC, ADIFF, ANEU, PHV, LIP, CMP, GFR #### [address] [address] Troponin I.cardiac [Mass/Vol] 0.041 ng/mL High 0.000-0.040 [facility] ([place]) Comment on above: Result Comment: Trop onin I reference ranges (03/27/14): 0.00-0.040 ng/mL Negative and non-diagnostic. >0.040 ng/mL Consistent with cardiac damage, increased clinical risk and possibility of myocardial infarction. Serial measurements, a rise & fall in test results, clinical history, appropriate symptoms and/or ECG changes may help assess possibility of DC. *Other non-acute coronary syndrome conditions such as CHF, myocarditis, pulmonary emboli, sepsis and cardiac surgery could result in myocardial damage and increased troponin levels. Performed By: #### C BC, ADIFF, ANEU, PHV, LIP, CMP, GFR #### [address] [address] UAon 11-15-2019 Color (U) Yellow Normal [facility] ([place]) Comment on above: Performed By: #### C BC, ADIFF, ANEU, PHV, LIP, CMP, GFR #### [address] [address] Glucose (U) [Mass/Vol] mg/dL Abnormal Negative [facility] [place] Comment on above: Performed By: #### C BC, ADIFF, ANEU, PHV, LIP, CMP, GFR #### [address] [address] UA Appear Clear Normal Clear [facility] ([place]) Comment on above: Performed By: #### C BC, ADIFF, ANEU, PHV, LIP, CMP, GFR #### [address] [address] UA Blood Negative Normal Neg-Trace [facility] ([place]) Comment on above: Performed By: #### C BC, ADIFF, ANEU, PHV, LIP, CMP, GFR #### [address] [address] UA Leuk Est Negative Normal Negative [facility] ([place]) Comment on above: Performed By: #### C BC, ADIFF, ANEU, PHV, LIP, CMP, GFR #### [address] [address] UA Nitrite Negative Normal Negative [facility] ([place]) Comment on above: Performed By: #### C BC, ADIFF, ANEU, PHV, LIP, CMP, GFR #### [address] [address] UA pH 5.0 Normal 5.0 - 8.0 [facility] ([place]) Comment on above: Performed By: #### C BC, ADIFF, ANEU, PHV, LIP, CMP, GFR #### [address] [address] UA Protein Negative Normal Negative [facility] ([place]) Comment on above: Performed By: #### C BC, ADIFF, ANEU, PHV, LIP, CMP, GFR #### [address] [address] UA Spec Grav 1.025 Normal 1.006-1.029 [facility] ([place]) Comment on above: Performed By: #### C BC, ADIFF, ANEU, PHV, LIP, CMP, GFR #### [address] [address] UA Specimen Type Clean Catch Normal [facility] ([place]) Comment on above: Performed By: #### C BC, ADIFF, ANEU, PHV, LIP, CMP, GFR #### [address] [address] UA Urobilinogen 0.2 E.U./dL Normal 0.2-1.0 [facility] ([place]) Comment on above: Performed By: #### C BC, ADIFF, ANEU, PHV, LIP, CMP, GFR #### [address] [address] Urobilinogen Qn (U) Negative Normal Neg-Trace [facility] ([place]) Comment on above: Performed By: #### C BC, ADIFF, ANEU, PHV, LIP, CMP, GFR #### [address] [address] .Auto Diffon 11-14-2019 Ammonia (P) [Mass/Vol] 0.30 10 3/mcL Normal 0.15-1.00 [facility] ([place]) Comment on above: Performed By: #### C BC, ADIFF, ANEU, PHV, LIP, CMP, GFR #### [address] [address] Basophils (Bld) [#/Vol] 0.10 10 3/mcL Normal 0.00-0.19 [facility] ([place]) Comment on above: Performed By: #### C BC, ADIFF, ANEU, PHV, LIP, CMP, GFR #### [address] [address] Basophils/100 WBC (Bld) 0.7 % Normal 0.0-2.5 [facility] ([place]) Comment on above: Performed By: #### C BC, ADIFF, ANEU, PHV, LIP, CMP, GFR #### [address] [address] Eosinophils (Bld) [#/Vol] 0.00 10 3/mcL Normal 0.00-0.40 [facility] ([place]) Comment on above: Performed By: #### C BC, ADIFF, ANEU, PHV, LIP, CMP, GFR #### [address] [address] Eosinophils/100 WBC (Bld) 0.1 % Normal 0.0-7.0 [facility] ([place]) Comment on above: Performed By: #### C BC, ADIFF, ANEU, PHV, LIP, CMP, GFR #### [address] [address] Lymphocytes (Bld) [#/Vol] 1.80 10 3/mcL Normal 0.77-3.85 [facility] ([place]) Comment on above: Performed By: #### C BC, ADIFF, ANEU, PHV, LIP, CMP, GFR #### [address] [address] Lymphocytes/100 WBC (Bld) 10.1 % Normal 10.0-50.0 [facility] ([place]) Comment on above: Performed By: #### C BC, ADIFF, ANEU, PHV, LIP, CMP, GFR #### [address] [address] Monocytes/100 WBC (Bld) 1.8 % Normal 1.7-13.0 [facility] ([place]) Comment on above: Performed By: #### C BC, ADIFF, ANEU, PHV, LIP, CMP, GFR #### [address] [address] Neutrophils/100 WBC (Bld) 87.3 % High 37.0-80.0 [facility] ([place]) Comment on above: Performed By: #### C BC, ADIFF, ANEU, PHV, LIP, CMP, GFR #### [address] [address] .GFRon 11-14-2019 GFR Non- 40 ml/min/1.73sqm Normal [facility] ([place]) Comment on above: Result Comment: GFR Population mean for , Non- Americans Ages 20-29 = 116 mL/min/1.73 sq.m. Ages 30-39 = 107 mL/min/1.73 sq.m. Ages 40-49 = 99 mL/min/1.73 sq.m. Ages 50-59 = 93 mL/min/1.73 sq.m. Ages 60-69 = 85 mL/min/1.73 sq.m. Ages 70+ = 75 mL/min/1.73 sq.m. Chronic Kidney Disease: Less than 60 mL/min/1.73 square meters End Stage Renal Disease: Less than 15 mL/min/1.73 square meters Performed By: #### C BC, ADIFF, ANEU, PHV, LIP, CMP, GFR #### [address] [address] GFR 48 ml/min/1.73sqm Normal [facility] ([place]) Comment on above: Result Comment: GFR Population mean for , Non- Americans Ages 20-29 = 116 mL/min/1.73 sq.m. Ages 30-39 = 107 mL/min/1.73 sq.m. Ages 40-49 = 99 mL/min/1.73 sq.m. Ages 50-59 = 93 mL/min/1.73 sq.m. Ages 60-69 = 85 mL/min/1.73 sq.m. Ages 70+ = 75 mL/min/1.73 sq.m. Chronic Kidney Disease: Less than 60 mL/min/1.73 square meters End Stage Renal Disease: Less than 15 mL/min/1.73 square meters Performed By: #### C BC, ADIFF, ANEU, PHV, LIP, CMP, GFR #### [address] [address] .NEUABSon 11-14-2019 Neutrophils (Bld) [#/Vol] 16.00 10 3/mcL High 2.85-6.16 [facility] ([place]) Comment on above: Performed By: #### C BC, ADIFF, ANEU, PHV, LIP, CMP, GFR #### [address] [address] CBCon 11-14-2019 Erythrocyte distribution width (RBC) [Ratio] 17.3 % High 11.5-14.5 [facility] ([place]) Comment on above: Performed By: #### C BC, ADIFF, ANEU, PHV, LIP, CMP, GFR #### [address] [address] Hematocrit (Bld) [Volume fraction] 50.4 % Normal 42.0-52.0 [facility] ([place]) Comment on above: Performed By: #### C BC, ADIFF, ANEU, PHV, LIP, CMP, GFR #### [address] [address] Hemoglobin (Bld) [Mass/Vol] 15.3 G/dL Normal 14.0-18.0 [facility] ([place]) Comment on above: Performed By: #### C BC, ADIFF, ANEU, PHV, LIP, CMP, GFR #### [address] [address] MCH (RBC) [Entitic mass] 25.0 pg Low 27.0-31.2 [facility] ([place]) Comment on above: Performed By: #### C BC, ADIFF, ANEU, PHV, LIP, CMP, GFR #### [address] [address] MCHC (RBC) [Mass/Vol] 30.3 G/dL Low 31.8-35.4 [facility] [place] Comment on above: Performed By: #### C BC, ADIFF, ANEU, PHV, LIP, CMP, GFR #### [address] [address] MCV (RBC) [Entitic vol] 82.3 fL Normal 80.0-94.0 [facility] ([place]) Comment on above: Performed By: #### C BC, ADIFF, ANEU, PHV, LIP, CMP, GFR #### [address] [address] Platelet mean volume (Bld) [Entitic vol] 10.3 fL Normal 7.4-10.4 [facility] ([place]) Comment on above: Performed By: #### C BC, ADIFF, ANEU, PHV, LIP, CMP, GFR #### [address] [address] Platelets (Bld) [#/Vol] 208 10 3/mcL Normal 130-400 [facility] ([place]) Comment on above: Performed By: #### C BC, ADIFF, ANEU, PHV, LIP, CMP, GFR #### [address] [address] RBC (Bld) [#/Vol] 6.13 10 6/mcL Normal 4.04-6.13 [facility] ([place]) Comment on above: Performed By: #### C BC, ADIFF, ANEU, PHV, LIP, CMP, GFR #### [address] [address] WBC (Bld) [#/Vol] 18.30 10 3/mcL High 4.60-10.80 [facility] ([place] Comment on above: Performed By: #### C BC, ADIFF, ANEU, PHV, LIP, CMP, GFR #### [address] [address] CMPon 11-14-2019 Albumin [Mass/Vol] 4.7 G/dL Normal 3.5-5.0 [facility]) Comment on above: Performed By: #### C BC, ADIFF, ANEU, PHV, LIP, CMP, GFR #### [address] [address] Albumin/Globulin [Mass ratio] 1.0 {ratio} Low 1.1-2.5 [facility]) Comment on above: Performed By: #### C BC, ADIFF, ANEU, PHV, LIP, CMP, GFR #### [address] [address] ALP [Catalytic activity/Vol] 145 U/L High 40-135 [facility] ([place]) Comment on above: Performed By: #### C BC, ADIFF, ANEU, PHV, LIP, CMP, GFR #### [address] [address] ALT [Catalytic activity/Vol] 29 U/L Normal 10-35 [facility] ([place]) Comment on above: Performed By: #### C BC, ADIFF, ANEU, PHV, LIP, CMP, GFR #### [address] [address] AST [Catalytic activity/Vol] 17 U/L Normal 10-40 [facility] ([place]) Comment on above: Performed By: #### C BC, ADIFF, ANEU, PHV, LIP, CMP, GFR #### [address] [address] Bili Total 0.5 mg/dL Normal 0.2-1.0 [facility] ([place]) Comment on above: Result Comment: Use of this assay is not recommended for patients undergoing treatment with eltrombopag due to the potential for falsely elevated results. Performed By: #### C BC, ADIFF, ANEU, PHV, LIP, CMP, GFR #### [address] [address] Calcium [Mass/Vol] 10.4 mg/dL High 8.4-10.2 [facility] ([place]) Comment on above: Performed By: #### C BC, ADIFF, ANEU, PHV, LIP, CMP, GFR #### [address] [address] Chloride [Moles/Vol] 87 mmol/L Low 98-107 [facility] ([place]) Comment on above: Performed By: #### C BC, ADIFF, ANEU, PHV, LIP, CMP, GFR #### [address] [address] CO2 [Moles/Vol] 13 mmol/L Low 22-29 [facility] ([place]) Comment on above: Performed By: #### C BC, ADIFF, ANEU, PHV, LIP, CMP, GFR #### [address] [address] Creatinine [Mass/Vol] 1.84 mg/dL High 0.70-1.30 [facility] [place] Comment on above: Performed By: #### C BC, ADIFF, ANEU, PHV, LIP, CMP, GFR #### [address] [address] Electrolyte Balance 32.0 mEq/L Normal [facility] ([place]) Comment on above: Performed By: #### C BC, ADIFF, ANEU, PHV, LIP, CMP, GFR #### [address] [address] Globulin (S) [Mass/Vol] 4.5 G/dL Normal [facility] ([place]) Comment on above: Performed By: #### C BC, ADIFF, ANEU, PHV, LIP, CMP, GFR #### [address] [address] Glucose [Mass/Vol] 657 mg/dL Critically abnormal 70-105 [facility] ([place]) Comment on above: Performed By: #### C BC, ADIFF, ANEU, PHV, LIP, CMP, GFR #### [address] [address] Potassium [Moles/Vol] 5.6 mmol/L High 3.5-5.1 [facility] [place] Comment on above: Performed By: #### C BC, ADIFF, ANEU, PHV, LIP, CMP, GFR #### [address] [address] Protein [Mass/Vol] 9.2 G/dL High 6.4-8.2 [facility] ([place]) Comment on above: Performed By: #### C BC, ADIFF, ANEU, PHV, LIP, CMP, GFR #### [address] [address] Sodium [Moles/Vol] 132 mmol/L Low 136-145 [facility] ([place]) Comment on above: Performed By: #### C BC, ADIFF, ANEU, PHV, LIP, CMP, GFR #### [address] [address] Urea nitrogen [Mass/Vol] 39 mg/dL High 7-18 [facility] ([place]) Comment on above: Performed By: #### C BC, ADIFF, ANEU, PHV, LIP, CMP, GFR #### [address] [address] Urea nitrogen/Creatinine [Mass ratio] 21 ratio Normal 02-12 [facility] ([place]) Comment on above: Performed By: #### C BC, ADIFF, ANEU, PHV, LIP, CMP, GFR #### [address] [address] LIPon 11-14-2019 Lipase Level 50 U/L Low 73-393 [facility] ([place]) Comment on above: Performed By: #### C BC, ADIFF, ANEU, PHV, LIP, CMP, GFR #### [address] [address] PHVon 11-14-2019 pH Venous 7.22 Low 7.31-7.41 [facility] ([place]) Comment on above: Performed By: #### C BC, ADIFF, ANEU, PHV, LIP, CMP, GFR #### [address] [address] RFLUon 11-14-2019 RFLU . MICRO - Microbiology PROCEDURE: Rapid Flu A+B Screen w Confirm if Ind [*1] SOURCE: Nasopharyngeal Swab BODY SITE: COLLECTED DATE/TIME: 11/14/2019 17:24 EDT RECEIVED DATE/TIME: 11/14/2019 17:34 EDT START DATE/TIME: 11/14/2019 17:34 EDT FREE TEXT SOURCE: FINAL REPORTS Final Report [] Verified Date/Time/Personnel: 11/14/2019 17:59 EDT Specimen is negative for the presence of influenza A antigen. . Specimen is negative for the presence of influenza B antigen. . Inadequate specimen collection, improper sample handling and/or low levels of viral shedding may yield a false-negative result. . The optimal specimen type for the Rapid Flu test is a nasopharyngeal wash/aspirate or nasopharyngeal swab. All negative rapid tests for Flu A and Flu B will be confirmed with a Respiratory Id Panel by PCR. . Assay method employs immunofluorescence technology. Performing Locations *1: This test was performed at: [address], [id number] [place] [address] ([place]) Comment on above: Performed By: #### R FLU #### [address], [place] [address] TROPon 11-14-2019 Troponin I.cardiac [Mass/Vol] ng/mL Normal 0.000-0.040 [facility] ([place]) Comment on above: Result Comment: Trop onin I reference range: 0.00-0.040 ng/mL Negative and non-diagnostic. >0.040 ng/mL Consistent with cardiac damage, increased clinical risk and possibility of myocardial infarction. Serial measurements, a rise & fall in test results, clinical history, appropriate symptoms and/or ECG changes may help assess possibility of DC. *Other non-acute coronary syndrome conditions such as CHF, myocarditis, pulmonary emboli, sepsis and cardiac surgery could result in myocardial damage and increased troponin levels. Performed By: #### T ROP #### [address] [address] XR CHEST 1 VIEWon 11-14-2019 XR CHEST 1 VIEW ORIGINAL XR CHEST 1 VIEW. Portable upright CLINICAL STATEMENT: Shortness of breath. COMPARISON: None FINDINGS: The cardiomediastinal silhouette is within normal limits. There is no focal consolidation or vascular congestion. The costophrenic angles are sharp. No pneumothorax is identified. IMPRESSION: No acute radiographic findings. I have personally reviewed the images of this examination and agree with the resident's findings and interpretation. Interpreted By: Alejandra Bergman MD Preliminary Report By: Steven Ramirez MD Electronically Signed By: Alejandra Bergman MD Dictated Date: 11/14/2019 6:02:08 PM Prelim Date: 11/14/2019 6:03:09 PM Sign Date: 11/14/2019 6:18:37 PM Ordering Provider:Ron Azevedo Normal [facility] ([place]) Comp Metabolic Panelon 10-09 ALP [Catalytic activity/Vol] 79 U/L Normal 38-126 [facility] Comment on above: Performed By: #### H EMDF, CMP3, ETOH4 #### [facility] [address] [place] [address] ALT [Catalytic activity/Vol] 118 U/L High 0-49 [facility] Comment on above: Result Comment: The ALT test is performed by an updated assay method. Please note that the reference intervals have been changed and are now sex specific. Performed By: #### H REYNAF CMP3, ETOH4 #### [facility] [address] [place] [address] Anion gap [Moles/Vol] 5 Normal [facility] Comment on above: Performed By: #### H EMDF, CMP3, ETOH4 #### [facility] [address] [place], [place] AST [Catalytic activity/Vol] 91 U/L High 15-46 [facility] Comment on above: Performed By: #### H EMDF, CMP3, ETOH4 #### [facility] [address] [place], [place] Bilirubin [Mass/Vol] mg/dL Low 0.2-1.3 [facility] Comment on above: Performed By: #### H EMDF, CMP3, ETOH4 #### [place] [address] [place], [place] Calcium [Mass/Vol] 9.0 mg/dL Normal 8.4-10.4 [facility] Comment on above: Performed By: #### H EMDF, CMP3, ETOH4 #### [facility] [address] [place], [place] CO2 [Moles/Vol] 29 mmol/L Normal 22-30 [facility] Comment on above: Performed By: #### H EMDF, CMP3, ETOH4 #### [facility] [address] [place], [place] Glucose [Mass/Vol] 327 mg/dL High 70-100 [facility] Comment on above: Performed By: #### H EMDF, CMP3, ETOH4 #### [facility] [address] [place] [address] Protein [Mass/Vol] 6.8 g/dL Normal 6.3-8.2 [facility] Comment on above: Performed By: #### H EMDF, CMP3, ETOH4 #### [facility] [address] [place] [address] Urea nitrogen [Mass/Vol] 15 mg/dL Normal 7-20 [facility] Comment on above: Performed By: #### H EMDF, CMP3, ETOH4 #### [facility] [address] [place], [place] Creatinine [Mass/Vol] 0.48 mg/dL Low 0.52-1.25 [facility] Comment on above: Performed By: #### H EMDF, CMP3, ETOH4 #### [facility] [address] [place], [place] GFR/1.73 sq M predicted among blacks MDRD (S/P/Bld) [Vol rate/Area] mL/min/{1.73_m2} Normal >60 [facility] Comment on above: Performed By: #### H EMDF, CMP3, ETOH4 #### [place] [address] [place], [place] GFR/1.73 sq M predicted among non-blacks MDRD (S/P/Bld) [Vol rate/Area] mL/min/{1.73_m2} Normal >60 [facility] Comment on above: Result Comment: Sour ce- MDRD equation with creatinine calibration to IDMS(NKDEP) eGFR not recommended for drug dose adjustment Performed By: #### H EMDF, CMP3, ETOH4 #### [place] [address] [place], [place] Albumin [Mass/Vol] 3.6 g/dL Normal 3.5-5.0 [facility] Comment on above: Performed By: #### H EMDF, CMP3, ETOH4 #### [place] [address] [place], [place] Chloride [Moles/Vol] 98 mmol/L Normal 98-107 [facility] Comment on above: Performed By: #### H EMDF, CMP3, ETOH4 #### [place] [address] [place], [place] Potassium [Moles/Vol] 4.5 mmol/L Normal 3.5-5.1 [facility] Comment on above: Performed By: #### H EMDF, CMP3, ETOH4 #### [place] [address] [place], [place] Sodium [Moles/Vol] 133 mmol/L Low 135-145 [facility] Comment on above: Performed By: #### H EMDF, CMP3, ETOH4 #### [facility] [address] [place] [address] Comprehensive Metabolic Pane con 10-10-2019 Albumin [Mass/Vol] 3.6 g/dL 3.5 - 5 g/dL [place], [place] ALP [Catalytic activity/Vol] 79 U/L 38 - 126 U/L [place], [place] ALT [Catalytic activity/Vol] 118 U/L High 0 - 49 U/L [place] Comment on above: The ALT test is perf ormed by an updated assay method. Please note that the reference intervals have been changed and are now sex specific. Anion gap [Moles/Vol] 5 mmol/L [place], [place] AST [Catalytic activity/Vol] 91 U/L High 15 - 46 U/L [place] Bilirubin Ql (U) <0.1 Low 0.2 - 1.3 mg/dL [place] Calcium [Mass/Vol] 9.0 mg/dL 8.4 - 10. 4 mg/dL [place] Chloride [Moles/Vol] 98 mmol/L 98 - 10 7 mmol/L [place] CO2 [Moles/Vol] 29 mmol/L 22 - 30 mmol/L [place] Creatinine [Mass/Vol] 0.48 mg/dL Low 0.52 - 1.25 mg/dL [place] EGFR IF NonAfrican [place]ian >60.0 >60 mL/min [place] Comment on above: Source- MDRD equatio n with creatinine calibration to IDMS(NKDEP) eGFR not recommended for drug dose adjustment GFR/1.73 sq M predicted among blacks MDRD (S/P/Bld) [Vol rate/Area] mL/min/{1.73_m2} >60 mL/min [place] Glucose [Mass/Vol] 327 mg/dL High 70 - 100 mg/dL [place] Interpretation and review of laboratory results Abnormal [place] Potassium [Moles/Vol] 4.5 mmol/L 3.5 - 5.1 mmol/L [place] Protein [Mass/Vol] 6.8 g/dL 6.3 - 8.2 g/dL [place] Sodium [Moles/Vol] 133 mmol/L Low 135 - 145 mmol/L [place] Urea nitrogen [Mass/Vol] 15 mg/dL 7 - 20 mg/dL [place] Drugs of Abuseon 10-10-2019 Phencyclidine (PCP), Ur Negative Normal [facility] Comment on above: Result Comment: The expected value for all of the drugs listed above is Negative. The following drugs or drug groups have been screened for by Immunoassay at the following thresholds: Amphetamine class (1000 ng/mL), Barbiturates (200 ng/mL), Benzodiazepines (200 ng/mL), Cocaine (300 ng/mL), Methadone (300 ng/mL), Opiates (300 ng/mL), Oxycodone (100 ng/mL), and PCP (25 ng/mL). NOTE: These results are for medical treatment only. Analysis performed using non-forensic procedures. POSITIVE results are NOT confirmed by a more specific alternative method unless requested. If confirmation is needed, request confirmation under separate order. Performed By: #### D RGA4 #### [facility] [address] [facility], [place] Methadone, Ur Negative Normal [facility] Comment on above: Performed By: #### D RGA4 #### [facility] [address] [facility], [place] Opiates, Ur Negative Normal [facility] Comment on above: Performed By: #### D RGA4 #### [facility] [address] [facility] [place], [place] Amphetamines, Ur Negative Normal [facility] Comment on above: Performed By: #### D RGA4 #### [facility] [address] [facility] [place], [place] Cocaine, Ur Negative Normal [facility] Comment on above: Performed By: #### D RGA4 #### [facility] [address] [facility] [place], [place] Benzodiazepines, Ur Negative Normal [facility] Comment on above: Performed By: #### D RGA4 #### [facility] [address] [place], [place] Barbiturates, Ur Negative Normal [facility] Comment on above: Performed By: #### D RGA4 #### [facility] [address] [place], [place] Oxycodone/Oxymorphine, Ur Negative Normal [facility] Comment on above: Performed By: #### D RGA4 #### [facility] [address] [place], [place] Ethanolon 10-10-2019 Ethanol Lvl <0.010 0 - 0.01 g/dL [place], [place] Comment on above: NOTE: This result is for medical treatment only. Analysis performed using non-forensic procedures. Ethanol Serum/Plasmaon 10-09 Ethanol-Serum/Plasma < 0.010 Normal 0.000-0.010 [facility] Comment on above: Result Comment: NOTE : This result is for medical treatment only. Analysis performed using non-forensic procedures. Performed By: #### H EMDF, CMP3, ETOH4 #### [facility] [address] [place], [place] Hemogram (CBC) w/Auto Diffon 10-10-2019 Absolute Baso # 0.1 10*3/uL 0 - 0.2 10*3/uL [place] Absolute Neut # 4.9 10*3/uL 1.8 - 7 10*3/uL [place] Basophils/100 WBC (Bld) 0.9 % 0 - 2 % [place] Eosinophils (Bld) [#/Vol] 0.2 10*3/uL 0 - 0.5 10*3/uL [place] Eosinophils/100 WBC (Bld) 2.7 % 1 - 6 % [place] Erythrocyte distribution width (RBC) [Ratio] 18.9 % High 11.5 - 14.5 % [place] Granulocytes/100 WBC (Bld) 61.7 % 40 - 80 % [place] Hematocrit (Bld) [Volume fraction] 37.3 % Low 40 - 52 % [place] Hemoglobin (Bld) [Mass/Vol] 12.2 g/dL Low 13 - 18 g/dL [place] Interpretation and review of laboratory results Abnormal [place] Lymphocytes (Bld) [#/Vol] 2.3 10*3/uL 1 - 4.3 10*3/uL [place] Lymphocytes/100 WBC (Bld) 28.4 % 20 - 40 % [place] MCH (RBC) [Entitic mass] 25.7 pg Low 26 - 34 pg [place] MCHC (RBC) [Mass/Vol] 32.6 % 32 - 36 % [place] MCV (RBC) [Entitic vol] 78.8 fL Low 80 - 98 fL [place] Monocytes (Bld) [#/Vol] 0.5 10*3/uL 0 - 0.8 10*3/uL [place] Monocytes/100 WBC (Bld) 6.3 % 2 - 10 % [place] Platelet mean volume (Bld) [Entitic vol] 8.7 fL 7.4 - 10.4 fL [place] Platelets (Bld) [#/Vol] 212 10*3/uL 140 - 440 10*3/uL [place] RBC (Bld) [#/Vol] 4.73 10*6/uL 4.4 - 5.9 10*6/uL [place] WBC (Bld) [#/Vol] 8.0 10*3/uL 3.6 - 10.7 10*3/uL [place] Test Performed by [facility], [address] [place] [address] [place], [place] Hemogram w/ Autodiffon 10-09 Abs Baso Cnt 0.1 10*3/uL Normal 0.0-0.2 [facility] Comment on above: Performed By: #### H EMDF, CMP3, ETOH4 #### [facility] [address] [place] [address] Abs Neutrophile Cnt 4.9 10*3/uL Normal 1.8-7.0 [facility] Comment on above: Performed By: #### H EMDF, CMP3, ETOH4 #### [address] Basophils/100 WBC (Bld) 0.9 % Normal 0.0-2.0 [facility] Comment on above: Performed By: #### H EMDF, CMP3, ETOH4 #### [address] Eosinophils (Bld) [#/Vol] 0.2 10*3/uL Normal 0.0-0.5 [facility] Comment on above: Performed By: #### H EMDF, CMP3, ETOH4 #### [address] Eosinophils/100 WBC (Bld) 2.7 % Normal 1.0-6.0 [facility] Comment on above: Performed By: #### H EMDF, CMP3, ETOH4 #### [address] Erythrocyte distribution width (RBC) [Ratio] 18.9 % High 11.5-14.5 [facility] Comment on above: Performed By: #### H EMDF, CMP3, ETOH4 #### [address] Granulocytes/100 WBC (Bld) 61.7 % Normal 40.0-80.0 [facility] Comment on above: Performed By: #### H EMDF, CMP3, ETOH4 #### [address] Hematocrit (Bld) [Volume fraction] 37.3 % Low 40.0-52.0 [facility] Comment on above: Performed By: #### H EMDF, CMP3, ETOH4 #### [address] Hemoglobin (Bld) [Mass/Vol] 12.2 g/dL Low 13.0-18.0 [facility] Comment on above: Performed By: #### H EMDF, CMP3, ETOH4 #### [place] [address] [place], [place] Lymphocytes (Bld) [#/Vol] 2.3 10*3/uL Normal 1.0-4.3 [facility] Comment on above: Performed By: #### H EMDF, CMP3, ETOH4 #### [place] [address] [place], [place] Lymphocytes/100 WBC (Bld) 28.4 % Normal 20.0-40.0 [facility] Comment on above: Performed By: #### H EMDF, CMP3, ETOH4 #### [address] MCH (RBC) [Entitic mass] 25.7 pg Low 26.0-34.0 [facility] Comment on above: Performed By: #### H EMDF, CMP3, ETOH4 #### [address] MCHC (RBC) [Mass/Vol] 32.6 % Normal 32.0-36.0 [facility] Comment on above: Performed By: #### H EMDF, CMP3, ETOH4 #### [address] MCV (RBC) [Entitic vol] 78.8 fL Low 80.0-98.0 [facility] Comment on above: Performed By: #### H EMDF, CMP3, ETOH4 #### [address] Monocytes (Bld) [#/Vol] 0.5 10*3/uL Normal 0.0-0.8 [facility] Comment on above: Performed By: #### H EMDF, CMP3, ETOH4 #### [address] Monocytes/100 WBC (Bld) 6.3 % Normal 2.0-10.0 [facility] Comment on above: Performed By: #### H EMDF, CMP3, ETOH4 #### [address] Platelet mean volume (Bld) [Entitic vol] 8.7 fL Normal 7.4-10.4 [facility] Comment on above: Performed By: #### H EMDF, CMP3, ETOH4 #### [place] [address] [place], [place] Platelets (Bld) [#/Vol] 212 10*3/uL Normal 140-440 [facility] Comment on above: Performed By: #### H EMDF, CMP3, ETOH4 #### [address] RBC (Bld) [#/Vol] 4.73 10*6/uL Normal 4.40-5.90 [facility] Comment on above: Performed By: #### H EMDF, CMP3, ETOH4 #### [address] WBC (Bld) [#/Vol] 8.0 10*3/uL Normal 3.6-10.7 [facility] Comment on above: Performed By: #### H EMDF, CMP3, ETOH4 #### [address] Otheron 10-10-2019 Test Performed by [facility], [facility] [place] [address] [facility], [place] Urine Drug Screenon 10-10-19 20 Amphetamines, urine Negative [facility], [place] Barbiturates, Ur Negative [facility], [place] Benzodiazepine Ur Qual Negative [facility] [place], [place] Cocaine Metabolites, Ur Negative [facility] [place], [place] Methadone, Urine Negative [facility], [place] Opiates, Urine Negative [facility], [place] Oxycodone Screen, Ur Negative [facility] [place], [place] PCP, Urine Negative [facility], [place] Comment on above: The expected value f or all of the drugs listed above is Negative. The following drugs or drug groups have been screened for by Immunoassay at the following thresholds: Amphetamine class (1000 ng/mL), Barbiturates (200 ng/mL), Benzodiazepines (200 ng/mL), Cocaine (300 ng/mL), Methadone (300 ng/mL), Opiates (300 ng/mL), Oxycodone (100 ng/mL), and PCP (25 ng/mL). NOTE: These results are for medical treatment only. Analysis performed using non-forensic procedures. POSITIVE results are NOT confirmed by a more specific alternative method unless requested. If confirmation is needed, request confirmation under separate order. Test Performed by [facility], [address] [place] [address] [place], [place] CT Abdomen Pelvis Wo Contras ton 09-07-2019 Patient Name: TORI CANTOR ---CT--- Exam Date/Time 09/07/2019 14:14:[address] Abdomen/Pelvis (No PO, No IV) Ordering Physician MARTHA TRAN DANIEL M Accession Number [id number] CPT4 Codes 06399 (CT Abdomen/Pelvis (No PO, No IV)) Reason For Exam Left flank pain Report CT abdomen and pelvis without contrast HISTORY: Left flank pain COMPARISON: 08/03/2018 Protocol: 3 mm axial images without intravenous contrast, oral contrast was not given Liver, gallbladder, spleen, pancreas, adrenals, and kidneys are normal. No kidney stones. No hydronephrosis. Increased stool in the colon. No bowel inflammation or bowel obstruction. No free fluid or free air. Bladder is unremarkable. IMPRESSION: Increased stool in the colon. Report Dictated on --- Final --- Dictating Physician: MD CASEY MALAY Signed Date and Time: 09/07/2019 2:23 pm Signed by: MD CASEY MALAY Transcribed Date and Time: 09/07/2019 2:24 [place], [place], [facility] Incoming Radiology Results From [facility] - 09/07/2019 2:24 PM EST Patient Name: TORI CANTOR ---CT--- Exam Date/Time 09/07/2019 14:14:[address] Abdomen/Pelvis (No PO, No IV) Ordering Physician MARTHA TRAN DANIEL M Accession Number [id number] CPT4 Codes 36035 (CT Abdomen/Pelvis (No PO, No IV)) Reason For Exam Left flank pain Report CT abdomen and pelvis without contrast HISTORY: Left flank pain COMPARISON: 08/03/2018 Protocol: 3 mm axial images without intravenous contrast, oral contrast was not given Liver, gallbladder, spleen, pancreas, adrenals, and kidneys are normal. No kidney stones. No hydronephrosis. Increased stool in the colon. No bowel inflammation or bowel obstruction. No free fluid or free air. Bladder is unremarkable. IMPRESSION: Increased stool in the colon. Report Dictated on --- Final --- Dictating Physician: MD CASEY MALAY Signed Date and Time: 09/07/2019 2:23 pm Signed by: MD CASEY MALAY Transcribed Date and Time: 09/07/2019 2:24 [place] CT Abdomen/Pelvis w/o Contra sto 09-07-2019 CT Abdomen/Pelvis w/o Contrast Patient Name: TORI CANTOR CT Exam Date/Time 09/07/2019 14:14:[address] Abdomen/Pelvis (No PO, No IV) Ordering Physician MARTHA TRAN DANIEL M Accession Number [id number] CPT4 Codes 16462 (CT Abdomen/Pelvis (No PO, No IV)) Reason For Exam Left flank pain Report CT abdomen and pelvis without contrast HISTORY: Left flank pain COMPARISON: 08/03/2018 Protocol: 3 mm axial images without intravenous contrast, oral contrast was not given Liver, gallbladder, spleen, pancreas, adrenals, and kidneys are normal. No kidney stones. No hydronephrosis. Increased stool in the colon. No bowel inflammation or bowel obstruction. No free fluid or free air. Bladder is unremarkable. IMPRESSION: Increased stool in the colon. Report Dictated on Final Dictating Physician: MD CASEY MALAY Signed Date and Time: 09/07/2019 2:23 pm Signed by: MD CASEY MALAY Transcribed Date and Time: 09/07/2019 2:24 Normal [facility] Comp Metabolic Panelon 09-07 Calcium [Mass/Vol] 9.8 mg/dL Normal 8.4-10.4 [facility] Comment on above: Performed By: #### H [facility] LIPA4, CMP3 #### [facility] [address] [place] [address] ALP [Catalytic activity/Vol] 59 U/L Normal 38-126 [facility] Comment on above: Performed By: #### H EMDF, LIPA4, CMP3 #### [facility] [address] [place] [address] ALT [Catalytic activity/Vol] 15 U/L Normal 13-69 [facility] Comment on above: Performed By: #### H EMDF, LIPA4, CMP3 #### [facility] [address] [place] [address] Anion gap [Moles/Vol] 11 Normal [facility] Comment on above: Performed By: #### H EMDF, LIPA4, CMP3 #### [facility] [address] [place] [address] AST [Catalytic activity/Vol] 28 U/L Normal 15-46 [facility] Comment on above: Performed By: #### H EMDF, LIPA4, CMP3 #### [facility] [address] [place] [address] Bilirubin [Mass/Vol] 0.5 mg/dL Normal 0.2-1.3 [facility] Comment on above: Performed By: #### H EMDF, LIPA4, CMP3 #### [facility] [address] [place] [address] CO2 [Moles/Vol] 28 mmol/L Normal 22-30 [facility] Comment on above: Performed By: #### H EMDF, LIPA4, CMP3 #### [facility] [address] [place] [address] Creatinine [Mass/Vol] 0.50 mg/dL Low 0.52-1.25 [facility] Comment on above: Performed By: #### H EMDF, LIPA4, CMP3 #### [facility] [address] [place] [address] GFR/1.73 sq M predicted among blacks MDRD (S/P/Bld) [Vol rate/Area] mL/min/{1.73_m2} Normal >60 [facility] Comment on above: Performed By: #### H EMDF, LIPA4, CMP3 #### [facility] [address] [place] [address] GFR/1.73 sq M predicted among non-blacks MDRD (S/P/Bld) [Vol rate/Area] mL/min/{1.73_m2} Normal >60 [facility] Comment on above: Result Comment: Sour ce- MDRD equation with creatinine calibration to IDMS(NKDEP) eGFR not recommended for drug dose adjustment Performed By: #### H EMDF, LIPA4, CMP3 #### [facility] [address] [place] [address] Glucose [Mass/Vol] 146 mg/dL High 70-100 [facility] Comment on above: Performed By: #### H EMDF, LIPA4, CMP3 #### [facility] [address] [place] [address] Protein [Mass/Vol] 8.4 g/dL High 6.3-8.2 [facility] Comment on above: Performed By: #### H EMDF, LIPA4, CMP3 #### [facility] [address] [place] [address] Urea nitrogen [Mass/Vol] 16 mg/dL Normal 7-20 [facility] Comment on above: Performed By: #### H EMDF, LIPA4, CMP3 #### [facility] [address] [place] [address] Potassium [Moles/Vol] 4.9 mmol/L Normal 3.5-5.1 [facility] Comment on above: Performed By: #### H EMDF, LIPA4, CMP3 #### [facility] [address] [place] [address] Sodium [Moles/Vol] 137 mmol/L Normal 135-145 [facility] Comment on above: Performed By: #### H EMDF, LIPA4, CMP3 #### [facility] [address] [place] [address] Albumin [Mass/Vol] 4.5 g/dL Normal 3.5-5.0 [facility] Comment on above: Performed By: #### H EMDF, LIPA4, CMP3 #### [facility] [address] [place] [address] Chloride [Moles/Vol] 98 mmol/L Normal 98-107 [facility] Comment on above: Performed By: #### H EMDF, LIPA4, CMP3 #### [facility] [address] [place] [address] Complete Urinalysison 2019 Bilirubin,Urine Negative Normal Negative [facility] Comment on above: Performed By: #### C UA2 #### [place] [address] [place] [address] Glucose Ql (U) > 1,000 Normal Normal (<70) [facility] Comment on above: Performed By: #### C UA2 #### [place] [address] [place] [address] Ketone,Urine Negative Normal Negative [facility] Comment on above: Performed By: #### C UA2 #### [place] [address] [place] [address] Leukocytes,Urine Negative Normal Negative [facility] Comment on above: Performed By: #### C UA2 #### [place] [address] [place] [address] Nitrites,Urine Negative Normal Negative [facility] Comment on above: Performed By: #### C UA2 #### [place] [address] [place] [address] pH (U) 8.0 Normal 5.0-8.0 [facility] Comment on above: Performed By: #### C UA2 #### [place] [address] [place] [address] Specific [place],Urine 1.020 Normal 1.005-1.030 [facility] Comment on above: Performed By: #### C UA2 #### [place] [address] [place] [address] Appearance (U) Clear Normal Clear [place], [place] Comment on above: Performed By: #### C UA2 #### [place] [address] [place] [address] Color (U) Light-Yellow Normal Lt. Yellow [place] Comment on above: Performed By: #### C UA2 #### [facility] [address] [place] [address] Occult Blood,Urine Negative Normal Negative [place], [place] Comment on above: Performed By: #### C UA2 #### [facility] [address] [place] [address] Protein (U) [Mass/Vol] Negative Normal Negative [place], [place] Comment on above: Performed By: #### C UA2 #### [facility] [address] [place] [address] Urobilinogen, Urine Normal Normal Normal (0-1) [place], [place] Comment on above: Performed By: #### C UA2 #### [facility] [address] [place] [address] Comprehensive Metabolic Pane con 09-07-2019 Albumin [Mass/Vol] 4.5 g/dL 3.5 - 5 g/dL [place], [place] ALP [Catalytic activity/Vol] 59 U/L 38 - 126 U/L [place] ALT [Catalytic activity/Vol] 15 U/L 13 - 69 U/L [place] Anion gap [Moles/Vol] 11 mmol/L [place], [place] AST [Catalytic activity/Vol] 28 U/L 15 - 46 U/L [place] Bilirubin Ql (U) 0.5 mg/dL 0.2 - 1.3 mg/dL [place] Calcium [Mass/Vol] 9.8 mg/dL 8.4 - 10. 4 mg/dL [place] Chloride [Moles/Vol] 98 mmol/L 98 - 10 7 mmol/L [place] CO2 [Moles/Vol] 28 mmol/L 22 - 30 mmol/L [place], [place] Creatinine [Mass/Vol] 0.5 mg/dL Low 0.52 - 1.25 mg/dL [place] EGFR IF NonAfrican Cambodian >60.0 >60 mL/min [place] Comment on above: Source- MDRD equatio n with creatinine calibration to IDMS(NKDEP) eGFR not recommended for drug dose adjustment GFR/1.73 sq M predicted among blacks MDRD (S/P/Bld) [Vol rate/Area] mL/min/{1.73_m2} >60 mL/min [place] Glucose [Mass/Vol] 146 mg/dL High 70 - 100 mg/dL [place] Interpretation and review of laboratory results Abnormal [place] Potassium [Moles/Vol] 4.9 mmol/L 3.5 - 5.1 mmol/L [place] Protein [Mass/Vol] 8.4 g/dL High 6.3 - 8.2 g/dL [place] Sodium [Moles/Vol] 137 mmol/L 135 - 145 mmol/L [place] Urea nitrogen [Mass/Vol] 16 mg/dL 7 - 20 mg/dL [place] Hemogram (CBC) w/Auto Diffon 09-07-2019 Absolute Baso # 0.1 10*3/uL 0 - 0.2 10*3/uL [place] Absolute Neut # 4.7 10*3/uL 1.8 - 7 10*3/uL [place] Basophils/100 WBC (Bld) 1.3 % 0 - 2 % [place] Eosinophils (Bld) [#/Vol] 0.2 10*3/uL 0 - 0.5 10*3/uL [place] Eosinophils/100 WBC (Bld) 2.4 % 1 - 6 % [place] Erythrocyte distribution width (RBC) [Ratio] 17.9 % High 11.5 - 14.5 % [place] Granulocytes/100 WBC (Bld) 61.0 % 40 - 80 % [place] Hematocrit (Bld) [Volume fraction] 40.6 % 40 - 52 % [place] Hemoglobin (Bld) [Mass/Vol] 13.3 g/dL 13 - 18 g/dL [place] Interpretation and review of laboratory results Abnormal [place] Lymphocytes (Bld) [#/Vol] 2.2 10*3/uL 1 - 4.3 10*3/uL [place] Lymphocytes/100 WBC (Bld) 28.6 % 20 - 40 % [place] MCH (RBC) [Entitic mass] 26.0 pg 26 - 34 pg [place] MCHC (RBC) [Mass/Vol] 32.6 % 32 - 36 % [place] MCV (RBC) [Entitic vol] 79.6 fL Low 80 - 98 fL [place] Monocytes (Bld) [#/Vol] 0.5 10*3/uL 0 - 0.8 10*3/uL [place] Monocytes/100 WBC (Bld) 6.7 % 2 - 10 % [place] Platelet mean volume (Bld) [Entitic vol] 9.8 fL 7.4 - 10.4 fL [place] Platelets (Bld) [#/Vol] 220 10*3/uL 140 - 440 10*3/uL [place] RBC (Bld) [#/Vol] 5.10 10*6/uL 4.4 - 5.9 10*6/uL [place] WBC (Bld) [#/Vol] 7.6 10*3/uL 3.6 - 10.7 10*3/uL [place] Test Performed by [facility], [address] [facility] [place] [address] [place] Hemogram w/ Autodiffon 09-07 Abs Baso Cnt 0.1 10*3/uL Normal 0.0-0.2 [facility] Comment on above: Performed By: #### H EMDF, LIPA4, CMP3 #### [facility] [address] [place] [address] Abs Neutrophile Cnt 4.7 10*3/uL Normal 1.8-7.0 [facility] Comment on above: Performed By: #### H EMDF, LIPA4, CMP3 #### [facility] [address] [place] [address] Basophils/100 WBC (Bld) 1.3 % Normal 0.0-2.0 [facility] Comment on above: Performed By: #### H EMDF, LIPA4, CMP3 #### [facility] [address] [place] [address] Eosinophils (Bld) [#/Vol] 0.2 10*3/uL Normal 0.0-0.5 [facility] Comment on above: Performed By: #### H EMDF, LIPA4, CMP3 #### [facility] [address] [place] [address] Eosinophils/100 WBC (Bld) 2.4 % Normal 1.0-6.0 [facility] Comment on above: Performed By: #### H EMDF, LIPA4, CMP3 #### [facility] [address] [place] [address] Erythrocyte distribution width (RBC) [Ratio] 17.9 % High 11.5-14.5 [facility] Comment on above: Performed By: #### H EMDF, LIPA4, CMP3 #### [facility] [address] [place] [address] Granulocytes/100 WBC (Bld) 61.0 % Normal 40.0-80.0 [facility] Comment on above: Performed By: #### H EMDF, LIPA4, CMP3 #### [facility] [address] [place] [address] Hematocrit (Bld) [Volume fraction] 40.6 % Normal 40.0-52.0 [facility] Comment on above: Performed By: #### H EMDF, LIPA4, CMP3 #### [facility] [address] [place] [address] Hemoglobin (Bld) [Mass/Vol] 13.3 g/dL Normal 13.0-18.0 [facility] Comment on above: Performed By: #### H EMDF, LIPA4, CMP3 #### [facility] [address] [place] [address] Lymphocytes (Bld) [#/Vol] 2.2 10*3/uL Normal 1.0-4.3 [facility] Comment on above: Performed By: #### H EMDF, LIPA4, CMP3 #### [facility] [address] [place] [address] Lymphocytes/100 WBC (Bld) 28.6 % Normal 20.0-40.0 [facility] Comment on above: Performed By: #### H EMDF, LIPA4, CMP3 #### [facility] [address] [place] [address] MCH (RBC) [Entitic mass] 26.0 pg Normal 26.0-34.0 [facility] Comment on above: Performed By: #### H EMDF, LIPA4, CMP3 #### [facility] [address] [place] [address] MCHC (RBC) [Mass/Vol] 32.6 % Normal 32.0-36.0 [facility] Comment on above: Performed By: #### H EMDF, LIPA4, CMP3 #### [facility] [address] [place] [address] MCV (RBC) [Entitic vol] 79.6 fL Low 80.0-98.0 [facility] Comment on above: Performed By: #### H EMDF, LIPA4, CMP3 #### [facility] [address] [place] [address] Monocytes (Bld) [#/Vol] 0.5 10*3/uL Normal 0.0-0.8 [facility] Comment on above: Performed By: #### H EMDF, LIPA4, CMP3 #### [facility] [address] [place] [address] Monocytes/100 WBC (Bld) 6.7 % Normal 2.0-10.0 [facility] Comment on above: Performed By: #### H EMDF, LIPA4, CMP3 #### [facility] [address] [place] [address] Platelet mean volume (Bld) [Entitic vol] 9.8 fL Normal 7.4-10.4 [facility] Comment on above: Performed By: #### H EMDF, LIPA4, CMP3 #### [facility] [address] [place] [address] Platelets (Bld) [#/Vol] 220 10*3/uL Normal 140-440 [facility] Comment on above: Performed By: #### H EMDF, LIPA4, CMP3 #### [facility] [address] [place] [address] RBC (Bld) [#/Vol] 5.10 10*6/uL Normal 4.40-5.90 [facility] Comment on above: Performed By: #### H EMDF, LIPA4, CMP3 #### [facility] [address] [place] [address] WBC (Bld) [#/Vol] 7.6 10*3/uL Normal 3.6-10.7 [facility] Comment on above: Performed By: #### H EMDF, LIPA4, CMP3 #### [facility] [address] [place] [address] Lipaseon 09-07-2019 Lipase [Catalytic activity/Vol] 51 U/L Normal 23-300 [facility] Comment on above: Performed By: #### H EMDF, LIPA4, CMP3 #### [facility] [address] [place] [address] Lipase [Catalytic activity/Vol] 51 U/L 23 - 300 U/L [place] Otheron 09-07-2019 Test Performed by [facility], [address] [place] [address] [place] Urinalysison 09-07-2019 Bilirubin Urine Negative Negative mg/dL [place] Glucose, Ur >1,000 Normal (<70) mg/dL [place] Ketones Ql (U) Negative Negative mg/dL [place] LEUKOCYTES, UA Negative Negative Nadine/uL [place] Nitrite, Urine Negative Negative NA [place] pH (U) 8.0 [pH] [place] Specific [place], Urine 1.020 [place] CNOVon 08-04-2019 CNOV Office Visit (AGPOB1 ) ----- TORI CANTOR ([id number]) 1975 M Date Time Provider Department 08/04/19 10:30 AM JAYY VOGEL AGMARYANNB1 During your visit today, we recorded the following information about you: Respiration Weight Height 18/minute 83.9 kg 1.753 m Jayy Vogel MD 08/07/2019 6:40 PM Signed REVIEW OF SYSTEMS: GENERAL: Well developed, well nourished. No acute distress PAIN: Negative for pain, history of chronic pain or current treatment for chronic pain conditions CARDIOVASCULAR: Negative for chest pain, leg swelling and palpations. MSK: joint pain YES SKIN: Negative for lesions, rash, itching, metal sensitivity NEURO: Numbness/tingling of extremties ENDOCRINE: Diabetes Type 1 YES HEMATOLOGY: Negative for excessive bleeding, clots, bleeding disorders. ORTHOPAEDIC OFFICE NOTE CHIEF COMPLAINT: left below knee amputation HISTORY OF PRESENT ILLNESS: Tori Cantor is a 44 year old male who presents for wound check after incision and drainage of a small lateral abscess about the below knee amputation incision. Had incisional wound vac removed 08/01/2019. Notes continued improvement of swelling. Incision has not been draining. Taking Duricef for one month course, although patient reports not being aware he is on antibiotics. No fevers chills nausea or vomiting. Reviewed nursing note and current pain scale. 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 - Pancreatitis 08/2014 - Tobacco abuse 05/27/2019 - Trimalleolar fracture of left ankle PAST SURGICAL HISTORY Procedure Laterality Date - IR VASCULAR ACCESS TEAM PICC INSERTION RADIO 06/17/2019 - NONE - PAST SURGICAL HISTORY OF Left 06/24/2019 L Lower Leg Amputation FAMILY HISTORY Problem Relation Age of Onset - Hypertension Mother - Diabetes Mother - Stroke Mother - Heart Mother CHF - Cataract Mother - Hypertension Father - COPD Father - Emphysema Father Social History Tobacco Use - Smoking status: Current Every Day Smoker Packs/day: 1.00 Types: Cigarettes - Smokeless tobacco: Never Used Substance Use Topics - Alcohol use: Yes Comment: socially - Drug use: Never Types: Cocaine, Amphetamines Comment: hist of cocaine and marajuana use, fentanyl MEDICATIONS: Current Outpatient Medications Medication Sig - insulin lispro (HUMALOG KWIKPEN) 100 unit/mL inpn Inject 6 Units subcutaneously w MEALS. - insulin NPH (HumuLIN N,NovoLIN N) pen Inject 20 Units subcutaneously twice daily. - naloxone 4 mg/actuation nasal spray (NARCAN) Use 1 spray in one nostril as needed for overdose. May repeat every 2 to 3 min in alternating nostrils until medical assistance is available - polyethylene glycol 3350 (MIRALAX, GLYCOLAX) 17 gram packet Take 17 g by mouth once daily. With 4 ounces of water. - metoclopramide HCl (REGLAN) 5 mg tablet Take 5 mg by mouth before meals and at bedtime. - DULoxetine (CYMBALTA) 20 mg capsule Take 1 capsule by mouth once daily. - lisinopril (ZESTRIL, PRINIVIL) 10 mg tablet Take 10 mg by mouth once daily. - pregabalin (LYRICA) 100 mg capsule Take 100 mg by mouth three times daily. - magnesium hydroxide (MOM) 400 mg/5 mL suspension Take 30 mL by mouth every 12 hours as needed for Constipation. - senna (SENNA) 8.6 mg tab Take 17.2 mg by mouth twice daily. - enoxaparin (LOVENOX) 40 mg/0.4 mL syrg Inject 40 mg subcutaneously every 24 hours. Prophylactic for prevention of DVT. - pantoprazole DR (PROTONIX) 40 mg tablet Take 40 mg by mouth once daily. - cefADROxil (DURICEF) 500 mg capsule Take 1 capsule by mouth every 12 hours for 28 days. - methadone (DOLOPHINE) 10 mg tablet One po 3 times daily for 5 days then one tab po 2 times daily for 5 days then 1/2 tab po bid x 5 days then 1/2 tab daily x 4 days for pain control s/p IANDD L BKA stump infection - nystatin (MYCOSTATIN) cream Apply 1 application to scrotum topically two times daily for redness. - bisacodyl EC (DULCOLAX, BISACODYL,) 5 mg EC tablet Take 5 mg by mouth once daily as needed for Constipation. - ondansetron (ZOFRAN) 4 mg tablet Take 4 mg by mouth every 6 hours as needed (nausea). No current facility-administered medications for this visit. ALLERGIES: ALLERGIES No Known Allergies PHYSICAL EXAMINATION: Resp 18 Ht 5' 9 (1.75m) Wt 185 lb (83.9kg) BMI 27.31 kg/(m2). General Appearance: Well appearing, alert, in no acute distress, well-hydrated, well nourished. Skin: Skin color, texture, turgor normal, no suspicious rashes or lesions. Extremities: Left below knee amputation site appears to be healing well. Decreased edema and erythema. No palpable fluctuance. No drainage from incision. Left leg soft and compressible. Moves left knee actively with full flexion/extension. Peripheral Pulses: Good perfusion of stump/flap with no areas of skin at risk. Neurologic: Intact light touch sensation left lower extremity. IMAGES: No results found for this or any previous visit (from the past 36 hour(s)). ASSESSMENT AND PLAN: 1. History of left below knee amputation (HCC) - ICD9: V49.75, ICD10: Z89.512 Functional Plan: Non-weight bearing left lower extremity, no range of motion restrictions. Assistance Devices: Walker/crutches as above. Physical/Occupational Therapy: None currently. Wound Care: Cleaned incision with chlorhexidine and removed all sutures. Applied dry dressing. Recommended continued daily soap and water washes left leg incision and adherence to [employer] recommendations for compression dressings. Pain Control: No change in pain regimen recommended this office visit. Fragility Fracture: Not applicable. Additional: None. Return in about 4 weeks (around 09/01/2019). Jayy Vogel MD Referring Provider: BYRON MUNOZ [[id number]] Allergies As of Date: 08/04/2019 (No Known Allergies) Date Reviewed: 08/04/2019 Reviewed by: Gil (Alejandro) Alejandro Sahni - Fully Assessed Reason for Visit: Post Op [174] Cmt: LT LEG SX 06/24/19 Post Op [174] Primary Visit Diagnosis:History of left below knee amputation (HCC) [Z89.512] Prescriptions as of 08/04/2019 Sig: INSULIN LISPRO (U-100) 100 UN* Inject 6 Units subcutaneously* INSULIN NPH ISOPHANE U-100 HU* Inject 20 Units subcutaneousl* NALOXONE 4 MG/ACTUATION NASAL* Use 1 spray in one nostril as* POLYETHYLENE GLYCOL 3350 17 G* Take 17 g by mouth once daily* METOCLOPRAMIDE 5 MG TABLET Take 5 mg by mouth before sarah* DULOXETINE 20 MG CAPSULE,MIRIAM* Take 1 capsule by mouth once * LISINOPRIL 10 MG TABLET Take 10 mg by mouth once nohemy* PREGABALIN 100 MG CAPSULE Take 100 mg by mouth three ti* MAGNESIUM HYDROXIDE 400 MG/5 * Take 30 mL by mouth every 12 * SENNA 8.6 MG TABLET Take 17.2 mg by mouth twice d* ENOXAPARIN 40 MG/0.4 ML SUBCU* Inject 40 mg subcutaneously e* PANTOPRAZOLE 40 MG TABLET,DEL* Take 40 mg by mouth once nohemy* CEFADROXIL 500 MG CAPSULE Take 1 capsule by mouth every* METHADONE 10 MG TABLET One po 3 times daily for 5 da* NYSTATIN 100,000 UNIT/GRAM TO* Apply 1 application to scrotu* BISACODYL 5 MG TABLET,DELAYED* Take 5 mg by mouth once daily* ONDANSETRON HCL 4 MG TABLET Take 4 mg by mouth every 6 ho* Medication notes this encounter CEFADROXIL 500 MG CAPSULE >> Gil Sparkbuy 08/04/2019 10:52 AM >> GIL SAHNI Jazz Aug 04, 2019 10:52 AM NOT TAKING METHADONE 10 MG TABLET >> Gil Sparkbuy 08/04/2019 10:52 AM >> GIL SAHNI Jazz Aug 04, 2019 10:52 AM NOT TAKING NYSTATIN 100,000 UNIT/GRAM TOPICAL CREAM >> Gil Sparkbuy 08/04/2019 10:53 AM >> GIL SAHNI Jazz Aug 04, 2019 10:53 AM NOT TAKING BISACODYL 5 MG TABLET,DELAYED RELEASE >> Gil Sparkbuy 08/04/2019 10:52 AM >> GIL SAHNI Jazz Aug 04, 2019 10:52 AM NOT TAKING ONDANSETRON HCL 4 MG TABLET >> Etelos 08/04/2019 10:53 AM >> GIL SAHNI Jazz Aug 04, 2019 10:53 AM PRN Problem List As Of Date 08/04/2019 Noted Resolved Uncontrolled type 1 diabetes mellitus mild nonp*11/23/1985 Hypertension [I10] 11/23/2009 Abdominal pain, right lower quadrant [R10.31] 11/23/2009 01/25/2016 Abdominal pain, left lower quadrant [R10.32] 11/23/2009 01/25/2016 GERD (gastroesophageal reflux disease) [K21.9] 01/25/2016 Microalbuminuria [R80.9] 01/25/2016 History of diabetic gastroparesis [Z86.39] 01/25/2016 Diabetic polyneuropathy associated with type 1 *01/25/2016 More... Depression with anxiety [F41.8] 01/25/2016 Lactose intolerance [E73.9] 07/30/2016 02/14/2017 Charcot's joint of right foot [M14.671] 11/11/2016 Obesity [E66.9] 02/11/2017 04/05/2018 Hyperlipidemia [E78.5] 02/14/2017 Hep C w/o coma, chronic (HCC) [B18.2] 09/29/2018 More... Moderate episode of recurrent major depressive *09/02/2018 09/29/2018 History of drug abuse in remission [F19.11] 09/29/2018 IVDU (intravenous drug user) [F19.90] 05/27/2019 Tobacco abuse [Z72.0] 05/27/2019 Left ankle joint deformity [M21.962] 05/27/2019 Hyperglycemia [R73.9] 05/27/2019 Nicotine use disorder, F17.2 [F17.200] 05/31/2019 Closed fracture of left ankle [S82.892A] 06/02/2019 Sepsis (HCC) [A41.9] 06/09/2019 Closed trimalleolar fracture of left ankle [S82*06/21/2019 Acute osteomyelitis involving lower leg, left (*06/27/2019 History of left below knee amputation (HCC) [Z8*07/14/2019 Cellulitis of left lower extremity [L03.116] 07/20/2019 Cellulitis [L03.90] 07/20/2019 Disposition: Return in about 4 weeks (around 09/01/2019). Follow-up and Disposition History Recorded Encounter Status:Closed by JAYY VOGEL MD on 08/07/19 [facility] PROGRESSon 08-04-2019 PROGRESS HNO ID: [id number] Author: Jayy Vogel Service: ? Author Type: Physician Type: Progress Notes Filed: 08/07/2019 6:40 PM Note Text: REVIEW OF SYSTEMS: GENERAL: Well developed, well nourished. No acute distress PAIN: Negative for pain, history of chronic pain or current treatment for chronic pain conditions CARDIOVASCULAR: Negative for chest pain, leg swelling and palpations. MSK: joint pain YES SKIN: Negative for lesions, rash, itching, metal sensitivity NEURO: Numbness/tingling of extremties ENDOCRINE: Diabetes Type 1 YES HEMATOLOGY: Negative for excessive bleeding, clots, bleeding disorders. ORTHOPAEDIC OFFICE NOTE CHIEF COMPLAINT: left below knee amputation HISTORY OF PRESENT ILLNESS: Tori Cantor is a 44 year old male who presents for wound check after incision and drainage of a small lateral abscess about the below knee amputation incision. Had incisional wound vac removed 08/01/2019. Notes continued improvement of swelling. Incision has not been draining. Taking Duricef for one month course, although patient reports not being aware he is on antibiotics. No fevers chills nausea or vomiting. Reviewed nursing note and current pain scale. 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 - Pancreatitis 08/2014 - Tobacco abuse 05/27/2019 - Trimalleolar fracture of left ankle PAST SURGICAL HISTORY Procedure Laterality Date - IR VASCULAR ACCESS TEAM PICC INSERTION RADIO 06/17/2019 - NONE - PAST SURGICAL HISTORY OF Left 06/24/2019 L Lower Leg Amputation FAMILY HISTORY Problem Relation Age of Onset - Hypertension Mother - Diabetes Mother - Stroke Mother - Heart Mother CHF - Cataract Mother - Hypertension Father - COPD Father - Emphysema Father Social History Tobacco Use - Smoking status: Current Every Day Smoker Packs/day: 1.00 Types: Cigarettes - Smokeless tobacco: Never Used Substance Use Topics - Alcohol use: Yes Comment: socially - Drug use: Never Types: Cocaine, Amphetamines Comment: hist of cocaine and marajuana use, fentanyl MEDICATIONS: Current Outpatient Medications Medication Sig - insulin lispro (HUMALOG KWIKPEN) 100 unit/mL inpn Inject 6 Units subcutaneously w MEALS. - insulin NPH (HumuLIN N,NovoLIN N) pen Inject 20 Units subcutaneously twice daily. - naloxone 4 mg/actuation nasal spray (NARCAN) Use 1 spray in one nostril as needed for overdose. May repeat every 2 to 3 min in alternating nostrils until medical assistance is available - polyethylene glycol 3350 (MIRALAX, GLYCOLAX) 17 gram packet Take 17 g by mouth once daily. With 4 ounces of water. - metoclopramide HCl (REGLAN) 5 mg tablet Take 5 mg by mouth before meals and at bedtime. - DULoxetine (CYMBALTA) 20 mg capsule Take 1 capsule by mouth once daily. - lisinopril (ZESTRIL, PRINIVIL) 10 mg tablet Take 10 mg by mouth once daily. - pregabalin (LYRICA) 100 mg capsule Take 100 mg by mouth three times daily. - magnesium hydroxide (MOM) 400 mg/5 mL suspension Take 30 mL by mouth every 12 hours as needed for Constipation. - senna (SENNA) 8.6 mg tab Take 17.2 mg by mouth twice daily. - enoxaparin (LOVENOX) 40 mg/0.4 mL syrg Inject 40 mg subcutaneously every 24 hours. Prophylactic for prevention of DVT. - pantoprazole DR (PROTONIX) 40 mg tablet Take 40 mg by mouth once daily. - cefADROxil (DURICEF) 500 mg capsule Take 1 capsule by mouth every 12 hours for 28 days. - methadone (DOLOPHINE) 10 mg tablet One po 3 times daily for 5 days then one tab po 2 times daily for 5 days then 1/2 tab po bid x 5 days then 1/2 tab daily x 4 days for pain control s/p IANDD L BKA stump infection - nystatin (MYCOSTATIN) cream Apply 1 application to scrotum topically two times daily for redness. - bisacodyl EC (DULCOLAX, BISACODYL,) 5 mg EC tablet Take 5 mg by mouth once daily as needed for Constipation. - ondansetron (ZOFRAN) 4 mg tablet Take 4 mg by mouth every 6 hours as needed (nausea). No current facility-administered medications for this visit. ALLERGIES: ALLERGIES No Known Allergies PHYSICAL EXAMINATION: Resp 18 Ht 5' 9 (1.75m) Wt 185 lb (83.9kg) BMI 27.31 kg/(m2). General Appearance: Well appearing, alert, in no acute distress, well-hydrated, well nourished. Skin: Skin color, texture, turgor normal, no suspicious rashes or lesions. Extremities: Left below knee amputation site appears to be healing well. Decreased edema and erythema. No palpable fluctuance. No drainage from incision. Left leg soft and compressible. Moves left knee actively with full flexion/extension. Peripheral Pulses: Good perfusion of stump/flap with no areas of skin at risk. Neurologic: Intact light touch sensation left lower extremity. IMAGES: No results found for this or any previous visit (from the past 36 hour(s)). ASSESSMENT AND PLAN: 1. History of left below knee amputation (HCC) - ICD9: V49.75, ICD10: Z89.512 Functional Plan: Non-weight bearing left lower extremity, no range of motion restrictions. Assistance Devices: Walker/crutches as above. Physical/Occupational Therapy: None currently. Wound Care: Cleaned incision with chlorhexidine and removed all sutures. Applied dry dressing. Recommended continued daily soap and water washes left leg incision and adherence to [employer] recommendations for compression dressings. Pain Control: No change in pain regimen recommended this office visit. Fragility Fracture: Not applicable. Additional: None. Return in about 4 weeks (around 09/01/2019). Jayy Vogel MD [facility] CNOVon 08-01-2019 [facility] Office Visit (AGPOB1 ) ----- TORI CANTOR ([id number]) 1975 M Date Time Provider Department 08/01/19 10:30 AM JACKIE TAYLOR (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MARTHA) AGPOB1 During your visit today, we recorded the following information about you: Respiration Weight Height 17/minute 83.9 kg 1.753 m Jackie Taylor APRN.CNP, CNP 08/01/2019 12:47 PM Signed ORTHOPAEDIC POST OP OFFICE NOTE Patient presents with: Left Leg - Post Op SURGEON: Dr. Jayy Vogel PROCEDURE: 07/25/19 Incision and drainage left leg abscess (superficial) with application incisional wound vac ? HISTORY OF PRESENT ILLNESS: Tori Cantor presents for post operative follow up 7 days from surgery. Patient presents for wound vac removal and dressing application. Wet-to-dry per op report. Patient states that he has been doing well since surgery. Denies fevers, chills, and other constitutional symptoms. Denies chest pain, shortness of breath. He is currently staying in nursing facility. He presents today on motorized scooter. Current Concerns: none Pain control: Well controlled. Currently taking pain medication:Yes: Fever, chills or other signs of infection: No patient denies. PHYSICAL EXAMINATION: No erythema, cellulitis or increased warmth. Scant amount of serous drainage noted. No purulence or odor. There is estimated 25 cc of drainage in the wound vac cartridge- serosanguineous in appearance. Sutures are intact. Edges are approximated. No signs of dehiscence. ROM: Good ROM of the knee. Sensation:Normal sensation Brisk cap refill NVI distally IMAGING: No new imaging obtained today. ASSESSMENT AND PLAN: Status post incision and drainage (primary encounter diagnosis) Post-operative state History of left below knee amputation (hcc) Patient has been doing well since his surgery. He states wound vac has been functioning normally. Denies symptoms of infection. The wound vac was removed today (est. 25 cc total drainage). Only scan amount of serous drainage noted upon removal. Sutures intact. No signs or signs of infection noted. Wet to dry dressing applied. Wrapped with morgan bandage. Patient was instructed on dressing changes. He has follow up appointment with Dr. Vogel scheduled for 08/04/19. He was reminded of appointment date and time. Pt education provided on dressing changes Patient was instructed to call the office with any questions and/or concerns. All questions answered to his apparent satisfaction. SHANNON Marquez APRN.MARTHA LORD 08/01/2019 11:34 AM Addendum Daily Dressing Changes for Right Lower Extremity: Apply saline moistened gauze over incision. Apply ABD pads over top to cover stump Wrap with kerlix roll and morgan bandage Monitor for increasing drainage. Contact our office with questions or concerns [phone]. Follow up with Dr. Vogel Referring Provider: JAYY VOGEL [[id number]] Allergies As of Date: 08/01/2019 (No Known Allergies) Date Reviewed: 08/01/2019 Reviewed by: Jackie (Solar Process Engineer.Animal Care Specialist) MARTHA Taylor - Fully Assessed Reason for Visit: Post Op [174] Primary Visit Diagnosis:Status post incision and drainage [Z98.890] Other Visit Diagnoses:Post-operative state [Z98.890] History of left below knee amputation (HCC) [Z89.512] Prescriptions as of 08/01/2019 Sig: CEFADROXIL 500 MG CAPSULE Take 1 capsule by mouth every* INSULIN LISPRO (U-100) 100 UN* Inject 6 Units subcutaneously* INSULIN NPH ISOPHANE U-100 HU* Inject 20 Units subcutaneousl* OXYCODONE 10 MG TABLET Take 1 tablet by mouth every * METHADONE 10 MG TABLET One po 3 times daily for 5 da* NALOXONE 4 MG/ACTUATION NASAL* Use 1 spray in one nostril as* POLYETHYLENE GLYCOL 3350 17 G* Take 17 g by mouth once daily* NYSTATIN 100,000 UNIT/GRAM TO* Apply 1 application to scrotu* METOCLOPRAMIDE 5 MG TABLET Take 5 mg by mouth before sarah* DULOXETINE 20 MG CAPSULE,MIRIAM* Take 1 capsule by mouth once * BISACODYL 5 MG TABLET,DELAYED* Take 5 mg by mouth once daily* LISINOPRIL 10 MG TABLET Take 10 mg by mouth once nohemy* PREGABALIN 100 MG CAPSULE Take 100 mg by mouth three ti* MAGNESIUM HYDROXIDE 400 MG/5 * Take 30 mL by mouth every 12 * ONDANSETRON HCL 4 MG TABLET Take 4 mg by mouth every 6 ho* SENNA 8.6 MG TABLET Take 17.2 mg by mouth twice d* ENOXAPARIN 40 MG/0.4 ML SUBCU* Inject 40 mg subcutaneously e* PANTOPRAZOLE 40 MG TABLET,DEL* Take 40 mg by mouth once nohemy* Problem List As Of Date 08/01/2019 Noted Resolved Uncontrolled type 1 diabetes mellitus mild nonp*11/23/1985 Hypertension [I10] 11/23/2009 Abdominal pain, right lower quadrant [R10.31] 11/23/2009 01/25/2016 Abdominal pain, left lower quadrant [R10.32] 11/23/2009 01/25/2016 GERD (gastroesophageal reflux disease) [K21.9] 01/25/2016 Microalbuminuria [R80.9] 01/25/2016 History of diabetic gastroparesis [Z86.39] 01/25/2016 Diabetic polyneuropathy associated with type 1 *01/25/2016 More... Depression with anxiety [F41.8] 01/25/2016 Lactose intolerance [E73.9] 07/30/2016 02/14/2017 Charcot's joint of right foot [M14.671] 11/11/2016 Obesity [E66.9] 02/11/2017 04/05/2018 Hyperlipidemia [E78.5] 02/14/2017 Hep C w/o coma, chronic (HCC) [B18.2] 09/29/2018 More... Moderate episode of recurrent major depressive *09/02/2018 09/29/2018 History of drug abuse in remission [F19.11] 09/29/2018 IVDU (intravenous drug user) [F19.90] 05/27/2019 Tobacco abuse [Z72.0] 05/27/2019 Left ankle joint deformity [M21.962] 05/27/2019 Hyperglycemia [R73.9] 05/27/2019 Nicotine use disorder, F17.2 [F17.200] 05/31/2019 Closed fracture of left ankle [S82.892A] 06/02/2019 Sepsis (HCC) [A41.9] 06/09/2019 Closed trimalleolar fracture of left ankle [S82*06/21/2019 Acute osteomyelitis involving lower leg, left (*06/27/2019 History of left below knee amputation (HCC) [Z8*07/14/2019 Cellulitis of left lower extremity [L03.116] 07/20/2019 Cellulitis [L03.90] 07/20/2019 Other instructions from your clinician: Daily Dressing Changes for Right Lower Extremity: Apply saline moistened gauze over incision. Apply ABD pads over top to cover stump Wrap with kerlix roll and morgan bandage Monitor for increasing drainage. Contact our office with questions or concerns [phone]. Follow up with Dr. Vogel Disposition: Return for Follow up [facility] Dr. Vogel. Follow-up and Disposition History Recorded Encounter Status:Closed by JACKIE TAYLOR APRN.CNP on 08/01/19 [facility] PROGRESSon 08-01-2019 PROGRESS HNO ID: [id number] Author: Jackie (Shruthi.Martha) MARTHA Taylor Service: ? Author Type: Nurse Practitioner Type: Progress Notes Filed: 08/01/2019 12:47 PM Note Text: ORTHOPAEDIC POST OP OFFICE NOTE Patient presents with: Left Leg - Post Op SURGEON: Dr. Jayy Vogel PROCEDURE: 07/25/19 Incision and drainage left leg abscess (superficial) with application incisional wound vac ? HISTORY OF PRESENT ILLNESS: Tori Cantor presents for post operative follow up 7 days from surgery. Patient presents for wound vac removal and dressing application. Wet-to-dry per op report. Patient states that he has been doing well since surgery. Denies fevers, chills, and other constitutional symptoms. Denies chest pain, shortness of breath. He is currently staying in nursing facility. He presents today on motorized scooter. Current Concerns: none Pain control: Well controlled. Currently taking pain medication:Yes: Fever, chills or other signs of infection: No patient denies. PHYSICAL EXAMINATION: No erythema, cellulitis or increased warmth. Scant amount of serous drainage noted. No purulence or odor. There is estimated 25 cc of drainage in the wound vac cartridge- serosanguineous in appearance. Sutures are intact. Edges are approximated. No signs of dehiscence. ROM: Good ROM of the knee. Sensation:Normal sensation Brisk cap refill NVI distally IMAGING: No new imaging obtained today. ASSESSMENT AND PLAN: Status post incision and drainage (primary encounter diagnosis) Post-operative state History of left below knee amputation (hcc) Patient has been doing well since his surgery. He states wound vac has been functioning normally. Denies symptoms of infection. The wound vac was removed today (est. 25 cc total drainage). Only scan amount of serous drainage noted upon removal. Sutures intact. No signs or signs of infection noted. Wet to dry dressing applied. Wrapped with morgan bandage. Patient was instructed on dressing changes. He has follow up appointment with Dr. Vogel scheduled for 08/04/19. He was reminded of appointment date and time. Pt education provided on dressing changes Patient was instructed to call the office with any questions and/or concerns. All questions answered to his apparent satisfaction. Jackie Taylor APRN.CNP Normal [facility] Basic Panelon 07-26-2019 Creatinine [Mass/Vol] 0.60 mg/dL Low 0.67-1.17 [facility] Comment on above: Performed By: #### P 8 #### [facility] [address] [place], [place] [address] Glucose [Mass/Vol] 162 mg/dL High 70-99 [facility] Comment on above: Performed By: #### P 8 #### [facility] [address] [place], [place] [address] Anion gap [Moles/Vol] 8 mmol/L Normal 8-16 [facility] Comment on above: Performed By: #### P 8 #### [facility] [address] [place], [place] [address] Calcium [Mass/Vol] 9.1 mg/dL Normal 8.5-10.1 [facility] Comment on above: Performed By: #### P 8 #### [facility] [address] [place], [place] [address] CO2 [Moles/Vol] 29 mmol/L Normal 21-32 [facility] Comment on above: Performed By: #### P 8 #### [facility] [address] [place], [place] [address] Urea nitrogen [Mass/Vol] 12 mg/dL Normal 7-18 [facility] Comment on above: Performed By: #### P 8 #### [facility] [address] [place], [place] [address] Chloride [Moles/Vol] 104 mmol/L Normal 98-107 [facility] Comment on above: Performed By: #### P 8 #### [facility] [address] [place], [place] [address] Potassium [Moles/Vol] 3.9 mmol/L Normal 3.5-5.1 [facility] Comment on above: Performed By: #### P 8 #### [facility] [address] [place], [place] [address] Sodium [Moles/Vol] 137 mmol/L Normal 136-145 [facility] Comment on above: Performed By: #### P 8 #### [facility] [place] [id number] CASE MANAGEMon 07-26-2019 CASE MANAGEM HNO ID: [id number] Author: Muna (Rn) MATT Cordero Service: Care Management Author Type: Registered Nurse Type: Care Mgt Progress Note Filed: 07/26/2019 2:43 PM Note Text: CARE MANAGEMENT DISCHARGE NOTE SERVICE DATE: 07/26/2019 SERVICE TIME: 1440 LOS: 6 days Admission Date: 07/20/2019 DISCHARGE ARRANGEMENT (list agency and phone number) alf facility: Was an expedited discharge program used? No Provider: angie dequincy CAREGIVER ASSESSMENT: Caregiver is ready, willing and able to meet the patient's needs as recommended by the inter-professional team? No Caregiver Needed Patient's transition needs and plan for meeting these needs: snf Does the patient have an acute stroke diagnosis, or has the patient had a stroke during this admission? No HANDOFF COMMUNICATION: summary of care TRANSPORTATION ARRANGEMENTS: Mode of Transportation: [employer] Agency and Phone #: [facility] ( [facility] ) [phone] / [phone]. Date of Trip: 07/26/2019 Type of Service: Wheelchair Is Patient Medicaid Pending: No Discussion of financial coverage occurred with Patient . Rn Social Services Location: [facility] Destination: [facility] Financial Care Management Responsibility: None Estimated Charge: na Approving Mechanical Process Engineer: breanna ADDITIONAL CONTACT RESOURCES: precert obtained and [facility]. Patient requested wheelchair [place], aware of 1750 transport time. Facility notified. SIGNATURE: Muna Cordero RN PATIENT NAME: Tori Cantor DATE: July 26, 2019 TIME: 2:40 PM PAGER/CONTACT #: [phone] Normal [facility] Glucose Meteron 07-26-2019 Glucose [Mass/Vol] 80 mg/dL Normal 70-99 [facility] Comment on above: Result Comment: RN N OTIFIED Performed By: #### P 8 #### [address] [address] Hemogram/Diffon 07-26-2019 Abs Immature Grans 0.02 thou/cmm Normal 0.00-0.05 [facility] [employer] [facility] Comment on above: Performed By: #### P 8 #### [facility] [address] [place] [address] Abs Neut (ANC) 3.02 thou/cmm Normal 1.78-5.38 [facility] Comment on above: Performed By: #### P 8 #### [facility] [address] [place] [address] Abs. Baso 0.07 thou/cmm Normal 0.01-0.08 [facility] Comment on above: Performed By: #### P 8 #### [facility] [address] [place] [address] Abs. [place] 0.61 thou/cmm Normal 0.30-0.82 [facility] Comment on above: Performed By: #### P 8 #### [facility] [address] [place] [address] Basophils/100 WBC (Bld) 1.2 % Normal [facility] Comment on above: Performed By: #### P 8 #### [facility] [address] [place] [address] Eosinophils (Bld) [#/Vol] 0.37 thou/cmm Normal 0.04-0.54 [facility] Comment on above: Performed By: #### P 8 #### [facility] [address] [place] [address] Eosinophils/100 WBC (Bld) 6.2 % Normal [facility] Comment on above: Performed By: #### P 8 #### [facility] [address] [place] [address] Erythrocyte distribution width (RBC) [Ratio] 13.6 % Normal 11.6-14.4 [facility] Comment on above: Performed By: #### P 8 #### [facility] [address] [place] [address] Hematocrit (Bld) [Volume fraction] 31.3 % Low 40.1-51.0 [facility] Comment on above: Performed By: #### P 8 #### [facility] [address] [place] [address] Hemoglobin (Bld) [Mass/Vol] 9.3 g/dL Low 13.7-17.5 [facility] Comment on above: Performed By: #### P 8 #### [facility] [address] [place], [place] [address] Immature Grans 0.30 % Normal [facility] Comment on above: Performed By: #### P 8 #### [facility] [address] [place], [place] [address] Lymphocytes (Bld) [#/Vol] 1.89 thou/cmm Normal 0.84-2.85 [facility] Comment on above: Performed By: #### P 8 #### [facility] [address] [place], [place] [address] Lymphocytes/100 WBC (Bld) 31.6 % Normal [facility] Comment on above: Performed By: #### P 8 #### [facility] [address] [place], [place] [address] MCH (RBC) [Entitic mass] 25.6 pg Low 25.7-32.2 [facility] Comment on above: Performed By: #### P 8 #### [facility] [address] [place], [place] [address] MCHC (RBC) [Mass/Vol] 29.7 % Low 32.3-36.5 [facility] Comment on above: Performed By: #### P 8 #### [facility] [address] [place], [place] [address] MCV (RBC) [Entitic vol] 86.2 fL Normal 83.2-95.6 [facility] Comment on above: Performed By: #### P 8 #### [facility] [address] [place], [place] [address] Monocytes/100 WBC (Bld) 10.2 % Normal [facility] Comment on above: Performed By: #### P 8 #### [facility] [address] [place], [place] [address] Platelet mean volume (Bld) [Entitic vol] 11.1 fL Normal 8.7-12.0 [facility] Comment on above: Performed By: #### P 8 #### [facility] [address] [place], [place] [address] Platelets (Bld) [#/Vol] 287 thou/cmm Normal 141-365 [facility] Comment on above: Performed By: #### P 8 #### [facility] [address] [place], [place] [address] RBC (Bld) [#/Vol] 3.63 mil/cmm Low 4.63-6.08 [facility] Comment on above: Performed By: #### P 8 #### [facility] [address] [place] [address] RDW SD 43.1 fl Normal 36.1-45.8 [facility] Comment on above: Performed By: #### P 8 #### [facility] [address] [place] [address] Seg Neutrophil 50.5 % Normal [facility] Comment on above: Performed By: #### P 8 #### [facility] [address] [place] [address] WBC (Bld) [#/Vol] 5.99 thou/cmm Normal 4.23-9.07 [facility] Comment on above: Performed By: #### P 8 #### [place] [address] MDRD GFRon 07-26-2019 GFR/1.73 sq M predicted among non-blacks MDRD (S/P/Bld) [Vol rate/Area] mL/min/{1.73_m2} Normal >60mL/min/1. 73m2 [facility] Comment on above: Result Comment: If t he patient is , multiply the result by 1.210. Performed By: #### P 8 #### [facility] [address] [place] [id number] NURSING PROGon 07-26-2019 NURSING PROG HNO ID: [id number] Author: Mitchell (Rn) MATT Gómez Service: Nursing Author Type: Registered Nurse Type: Nursing Progress Note Filed: 07/26/2019 6:31 PM Note Text: Nursing Progress Note Patient Name: Tori Cantor Patient Location: [place] [address]/[id number] Discharge report given to TRINIDAD at [facility] This note was completed by: Mitchell Gómez RN [facility] NURSING PROG HNO ID: [id number] Author: Mitchell (Rn) MATT Gómez Service: Nursing Author Type: Registered Nurse Type: Nursing Progress Note Filed: 07/26/2019 5:58 PM Note Text: Nursing Progress Note Patient Name: Tori Cantor Patient Location: [place] [id number] 1 RN called [facility] 5 times to give report with no answer. [phone]. Pt to be picked up at 1800. This note was completed by: Mitchell Gómez RN [facility] PLAN OF CAREon 07-26-2019 PLAN OF CARE HNO ID: [id number] Author: Gustavo Morgan (Pharmacist) Service: Pharmacy Author Type: Pharmacist Type: Plan of Care Filed: 07/26/2019 12:56 PM Note Text: DISCHARGE MEDICATION REVIEW BY PHARMACY Patient Name: Tori Cantor Account #: Data Unavailable Admission Date: 07/20/2019 Date of Contact: July 26, 2019 Time of Contact: 12:56 PM Medication list was reviewed by a Pharmacist for drug interactions or drug related problems:Yes Below is a summary of pharmacist recommendations discussed with LIP: No Recommendations at this time from Discharge Medication List. GUSTAVO MORGAN PHARMACIST July 26, 2019 12:56 PM Pager: [phone] 07/26/2019 12:56 PM Medication List START taking these medications cefADROxil 500 mg capsule Commonly known as: DURICEF Take 1 capsule by mouth every 12 hours for 28 days. insulin NPH human 100 unit/mL (3 mL) Inpn injection pen Commonly known as: NovoLIN N, HumuLIN N Inject 20 Units subcutaneously twice daily. oxyCODONE ir 5 mg capsule Commonly known as: OXYIR Take 1-2 capsules by mouth every 6 hours as needed for Pain for up to 3 days. CHANGE how you take these medications DULCOLAX (BISACODYL) 5 mg EC tablet Generic drug: bisacodyl EC What changed: Another medication with the same name was removed. Continue taking this medication, and follow the directions you see here. insulin lispro 100 unit/mL Inpn Commonly known as: HumaLOG KWIKPEN Inject 6 Units subcutaneously w MEALS. What changed: how much to take methadone 10 mg tablet Commonly known as: DOLOPHINE Take 1 tablet by mouth three times daily for 3 days. What changed: when to take this CONTINUE taking these medications DULoxetine 20 mg capsule Commonly known as: CYMBALTA Take 1 capsule by mouth once daily. lisinopril 10 mg tablet Commonly known as: ZESTRIL, PRINIVIL LOVENOX 40 mg/0.4 mL Syrg Generic drug: enoxaparin magnesium hydroxide 400 mg/5 mL suspension Commonly known as: MOM nystatin cream Commonly known as: MYCOSTATIN ondansetron 4 mg tablet Commonly known as: ZOFRAN polyethylene glycol 3350 17 gram packet Commonly known as: MIRALAX, GLYCOLAX pregabalin 100 mg capsule Commonly known as: LYRICA PROTONIX 40 mg tablet Generic drug: pantoprazole DR REGLAN 5 mg tablet Generic drug: metoclopramide HCl Senna 8.6 mg Tab Generic drug: senna STOP taking these medications acetaminophen 325 mg tablet Commonly known as: TYLENOL doxycycline 100 mg tablet Commonly known as: vibra-tabs ibuprofen 400 mg tablet Commonly known as: MOTRIN insulin regular human 100 unit/mL injection Commonly known as: NovoLIN R,HumuLIN R Where to Get Your Medications You can get these medications from any pharmacy Bring a paper prescription for each of these medications ? methadone 10 mg tablet ? oxyCODONE ir 5 mg capsule Normal [facility] PLAN OF CARE HNO ID: [id number] Author: Mariza Ruiz (Remedial Project Manager) Service: Pharmacy Author Type: ? 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 Patient to use [facility] Bedside Delivery - N/A Insurance Information as follows: 2. Insurance card on file - N/A 3. Credit card for payment - N/A Pt DC to SNF/Acute Rehab/Inpatient Facility therefore not eligible for Pharmacy Bedside Delivery service. Mariza Ruiz (Remedial Project Manager) Extension [id number], or [phone] Normal [facility] PROGRESSon 07-26-2019 PROGRESS HNO ID: [id number] Author: Donnell Garcia Service: Infectious Disease Author Type: Physician Type: Progress Notes Filed: 07/26/2019 2:20 PM Note Text: INFECTIOUS DISEASE PROGRESS NOTE Patient Name: Tori Cantor Date: 07/26/2019 ASSESSMENT: 1. Left BKA Incisional Infection?with abscess ?-s/p I and D and found to have superficial abscess laterally with fat necrosis, cx + for MSSA 2. Type I DM 3. High Grade MSSA Bacteremia cleared 06/12, negative JOANNA - RX'd 4. Anemia? ? RECOMMENDATIONS:?? Continue with ceftriaxone 2 g per day while he is in the hospital. When ready to go home, switch to po cefadroxil 500 mg bid for 4 weeks duration till aug 23, 2019. Will need follow up in the ID clinic at the end of 4 weeks. Will arrange follow up. He will be seeing ortho on 08/01 for wound vac removal. Please contact ID if there is concern for wound site infection at that time. INTERVAL HISTORY: ROS done with pt/RN and negative unless stated. Waiting to be discharged MEDICATIONS: reviewed. Current Facility-Administered Medications Medication Dose Route Frequency - acetaminophen 650 mg tab(s) (TYLENOL) 650 mg ORAL q 6 H PRN - pregabalin 100 mg cap(s) (LYRICA) 100 mg ORAL TID - lisinopril 10 mg tab(s) (ZESTRIL, PRINIVIL) 10 mg ORAL DAILY - nystatin 100,000 unit/gram crea (MYCOSTATIN) TOPICAL BID - DULoxetine 20 mg cap(s) (CYMBALTA) 20 mg ORAL DAILY - pantoprazole DR 40 mg tab(s) (PROTONIX) 40 mg ORAL DAILY - senna 17.2 mg tab(s) (SENOKOT) 17.2 mg ORAL BID - magnesium hydroxide 400 mg/5 mL 30 mL (MOM) 30 mL ORAL q 12 H PRN - metoclopramide HCl 5 mg (REGLAN) 5 mg ORAL AC and HS - enoxaparin 40 mg injection (LOVENOX) 40 mg SUBCUTANEOUS DAILY - NaCl 0.9% 3-5 mL 3-5 mL INTRAVENOUS q 12 H - ondansetron 4 mg tab(s) (ZOFRAN) 4 mg ORAL q 6 H PRN Or - ondansetron (PF) 4 mg injection (ZOFRAN) 4 mg INTRAVENOUS q 6 H PRN - dextrose 40 % 15 g 15 g ORAL PRN Or - glucagon 1 mg injection (GLUCAGEN) 1 mg INTRAMUSCULAR PRN Or - dextrose 50 % 12.5 g injection 12.5 g INTRAVENOUS PRN - insulin lispro pen (rapid acting) (HumaLOG KWIKPEN) SUBCUTANEOUS w MEALS - insulin NPH human 20 Units injection pen (intermediate acting) (NovoLIN N, HumuLIN N) 20 Units SUBCUTANEOUS BID - insulin lispro 6 Units pen (rapid acting) (HumaLOG KWIKPEN) 6 Units SUBCUTANEOUS w MEALS - iv contrast (radiology procedure) INTRAVENOUS DIRECTED PRN - polyethylene glycol 3350 17 g packet (MIRALAX, GLYCOLAX) 17 g ORAL BID - melatonin 3 mg tab(s) 3 mg ORAL HS PRN - methadone 10 mg tab(s) (DOLOPHINE) 10 mg ORAL TID - cefTRIAXone iv piggyback 2 g in dextrose (iso-osmotic) 50 mL (ROCEPHIN) 2 g INTRAVENOUS q 24 H - oxyCODONE IR 10 mg tab(s) (ROXICODONE) 10 mg ORAL q 3 H PRN - morphine 4-6 mg injection 4-6 mg INTRAVENOUS q 3 H PRN PHYSICAL EXAM: Vital signs: BP 127/85 Pulse 86 Temp 36.5 ?C (97.7 ?F) (Temporal Artery) Resp 18 Ht 175.3 cm (5' 9) Wt 86 kg (189 lb 9.5 oz) SpO2 100% BMI 28.00 kg/m? Temp (24hrs), Av.5 ?C (97.7 ?F), Min:36.4 ?C (97.5 ?F), Max:36.6 ?C (97.9 ?F) General: alert, oriented, NAD Lungs: bilaterally clear to auscultation Heart: regular rate and rhythm Abdomen: soft, non tender, non distended, BS+ Extremities left wound - surgical dressing applied Skin: no rash IV sites - wnl Lab data: reviewed Recent Labs 07/26/19 0356 07/25/19 0241 07/23/19 2241 WBC 5.99 6.18 -- HB 9.3* 9.4* -- PLT 287 277 -- NA 137 -- -- K 3.9 -- -- CO2 29 -- -- BUN 12 -- -- CREAT 0.60* -- -- VANCORA -- -- 15.7 Microbiology data: reviewed Imaging data: reviewed Donnell Garcia MD General and Orthopedics Infectious Diseases Pager: [phone] [facility] PROGRESS HNO ID: [id number] Author: Kenia Calvillo Service: Pain Management Author Type: Physician Type: Progress Notes Filed: 07/26/2019 1:29 PM Note Text: TORI CANTOR 44 year old PAIN MANAGEMENT: Status post left BKA 06/24/2019, left leg cellulitis, history of left trimalleolar ankle fracture, osteomyelitis, history of IV drug abuse 24 HOUR COMFORT MEDICATIONS: Methadone 10 mg tid x 3 Lyrica 100 mg 3 times a day Morphine 6mg IV x 6 [place] prescription history shows regular use of methadone 10 mg twice a day, occasional oxycodone or Percocet, regular pregabalin at 100 mg 3 times a day. Methadone last filled on 07/06/2019 for #30 representing a 15 day supply. Antibiotic Therapy: Zosyn/vancomycin Interval HPI: S/p IANDD left BKA abscess; pt c/o increased pain after OR yesterday- discussed with him increased methadone and oxycodone Subjective HPI: 44-year-old male, readmitted on 07/20/2019 secondary to cellulitis involving his left leg stump. He is status post left BKA last month, and we were involved in his pain management during that hospitalization. 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 Patient was readmitted to orthopedic service with redislocation of the tibiotalar joint, exposed necrotic tibia and worsening fracture displacement. He underwent left BKA with removal of external fixator 06/24. ? Patient is known to our team from his recent admission 06/09?06/20 for MSSA bacteremia and osteomyelitis. He was discharged to SNF on oxycodone 5 mg #30 ? Prior to admission patient was taking Lyrica 100 mg by mouth 3 times a day. ?He smokes 1 pack per day. ?He denies alcohol. ?He does use marijuana infrequently. ?He states he had done street drugs for 30 years and then he last used a while ago. ?He has a history of IV cocaine and methamphetamine. ?He also admits to history of frequent IV fentanyl use. By the time of his hospital discharge, this patient was on methadone 10 mg every 12 hours, and we will utilizing oxycodone 10?15 milligrams every 3 hours as necessary for pain, the oxycodone was continued only for a short period of time post discharge, but methadone has been continued post discharge at 10 mg every 12 hours. In addition to his current methadone, he is utilizing IV morphine for breakthrough pain. He is also complaining of lower chest and left upper quadrant abdominal pain. He is status post a bowel movement which did seem to help his pain. He is now status post irrigation and debridement of his left BKA surgical site secondary to abscess, with application of wound VAC, and this has aggravated his pain. Current Facility-Administered Medications Medication Dose Route Frequency Provider Last Rate Last Dose - methadone 10 mg tab(s) (DOLOPHINE) 10 mg ORAL TID Remy Palmer Karmen 10 mg at 07/26/19 1203 - morphine 4-6 mg injection 4-6 mg INTRAVENOUS q 3 H PRN Remy Masonus 4 mg at 07/26/19 1258 - cefTRIAXone iv piggyback 2 g in dextrose (iso-osmotic) 50 mL (ROCEPHIN) 2 g INTRAVENOUS q 24 H Donnell Jose 100 mL/hr at 07/25/192009 2 g at 07/25/192009 - iv contrast (radiology procedure) INTRAVENOUS DIRECTED PRN Velvet Phelps - polyethylene glycol 3350 17 g packet (MIRALAX, GLYCOLAX) 17 g ORAL BID Velvet Fouad 17 g at 07/26/19 0739 - melatonin 3 mg tab(s) 3 mg ORAL HS PRN Velvet Torresuad - insulin lispro 6 Units pen (rapid acting) (HumaLOG KWIKPEN) 6 Units SUBCUTANEOUS w MEALS Velvet Fouad 6 Units at 07/26/19 1122 - acetaminophen 650 mg tab(s) (TYLENOL) 650 mg ORAL q 6 H PRN Velvet Fouad 650 mg at 07/22/19 1259 - pregabalin 100 mg cap(s) (LYRICA) 100 mg ORAL TID Velvet Fouad 100 mg at 07/26/19 0740 - lisinopril 10 mg tab(s) (ZESTRIL, PRINIVIL) 10 mg ORAL DAILY Velvet Fouad 10 mg at 07/26/19 0741 - nystatin 100,000 unit/gram crea (MYCOSTATIN) TOPICAL BID Velvet Torresuad - DULoxetine 20 mg cap(s) (CYMBALTA) 20 mg ORAL DAILY Velvet Fouad 20 mg at 07/26/19 0741 - pantoprazole DR 40 mg tab(s) (PROTONIX) 40 mg ORAL DAILY Velvet Fouad 40 mg at 07/26/19 0740 - senna 17.2 mg tab(s) (SENOKOT) 17.2 mg ORAL BID Velvet Fouad 17.2 mg at 07/26/19 0741 - magnesium hydroxide 400 mg/5 mL 30 mL (MOM) 30 mL ORAL q 12 H PRN Velvet Torresuad - metoclopramide HCl 5 mg (REGLAN) 5 mg ORAL AC and HS Velvet Fouad 5 mg at 07/26/19 1122 - enoxaparin 40 mg injection (LOVENOX) 40 mg SUBCUTANEOUS DAILY Velvet Fouad 40 mg at 07/26/19 0740 - NaCl 0.9% 3-5 mL 3-5 mL INTRAVENOUS q 12 H Velvet Fouad 5 mL at 07/26/19 0742 - ondansetron 4 mg tab(s) (ZOFRAN) 4 mg ORAL q 6 H PRN Velvet Fouad Or - ondansetron (PF) 4 mg injection (ZOFRAN) 4 mg INTRAVENOUS q 6 H PRN Velvet Torresuad - dextrose 40 % 15 g 15 g ORAL PRN Velvet Fouad 15 g at 07/23/19 1622 Or - glucagon 1 mg injection (GLUCAGEN) 1 mg INTRAMUSCULAR PRN Velvet Tsaid Or - dextrose 50 % 12.5 g injection 12.5 g INTRAVENOUS PRN Velvet Tsaid 12.5 g at 07/23/19 1715 - insulin lispro pen (rapid acting) (HumaLOG KWIKPEN) SUBCUTANEOUS w MEALS Velvet Torresuad 4 Units at 07/25/19 1643 - insulin NPH human 20 Units injection pen (intermediate acting) (NovoLIN N, HumuLIN N) 20 Units SUBCUTANEOUS BID Velvet Torresuad 20 Units at 07/26/19 0740 polyethylene glycol 3350 (MIRALAX, GLYCOLAX) 17 gram packet, Take 17 g by mouth once daily. With 4 ounces of water., Disp: , Rfl: nystatin (MYCOSTATIN) cream, Apply 1 application to scrotum topically two times daily for redness., Disp: , Rfl: metoclopramide HCl (REGLAN) 5 mg tablet, Take 5 mg by mouth before meals and at bedtime., Disp: , Rfl: DULoxetine (CYMBALTA) 20 mg capsule, Take 1 capsule by mouth once daily., Disp: , Rfl: bisacodyl EC (DULCOLAX, BISACODYL,) 5 mg EC tablet, Take 5 mg by mouth once daily as needed for Constipation., Disp: , Rfl: lisinopril (ZESTRIL, PRINIVIL) 10 mg tablet, Take 10 mg by mouth once daily., Disp: , Rfl: pregabalin (LYRICA) 100 mg capsule, Take 100 mg by mouth three times daily., Disp: , Rfl: magnesium hydroxide (MOM) 400 mg/5 mL suspension, Take 30 mL by mouth every 12 hours as needed for Constipation. , Disp: , Rfl: ondansetron (ZOFRAN) 4 mg tablet, Take 4 mg by mouth every 6 hours as needed (nausea)., Disp: , Rfl: senna (SENNA) 8.6 mg tab, Take 17.2 mg by mouth twice daily., Disp: , Rfl: enoxaparin (LOVENOX) 40 mg/0.4 mL syrg, Inject 40 mg subcutaneously every 24 hours. Prophylactic for prevention of DVT. , Disp: , Rfl: pantoprazole DR (PROTONIX) 40 mg tablet, Take 40 mg by mouth once daily. , Disp: , Rfl: , 05/26/2019 [DISCONTINUED] doxycycline (VIBRA-TABS) 100 mg tablet, Take 100 mg by mouth twice daily. For 4 weeks. Course initiated on 07/19/2019., Disp: , Rfl: [DISCONTINUED] bisacodyl (DULCOLAX) 10 mg supp, 10 mg by RECTAL route once daily as needed for Constipation. If no results from MOM., Disp: , Rfl: [DISCONTINUED] methadone (DOLOPHINE) 10 mg tablet, Take 10 mg by mouth every 12 hours., Disp: , Rfl: [DISCONTINUED] insulin regular human (NOVOLIN R,HUMULIN R) 100 unit/mL injection, Inject 20 Units subcutaneously twice daily before meals., Disp: , Rfl: [DISCONTINUED] insulin lispro (HUMALOG KWIKPEN) 100 unit/mL inpn, Inject 8 Units subcutaneously w MEALS., Disp: , Rfl: [DISCONTINUED] acetaminophen (TYLENOL) 325 mg tablet, Take 650 mg by mouth every 6 hours as needed for Pain or Fever. , Disp: , Rfl: [DISCONTINUED] ibuprofen (MOTRIN) 400 mg tablet, Take 400 mg by mouth every 6 hours as needed (general discomfort). , Disp: , Rfl: Social History Tobacco Use - Smoking status: Current Every Day Smoker Packs/day: 1.00 Types: Cigarettes - Smokeless tobacco: Never Used Substance Use Topics - Alcohol use: Yes Comment: socially - Drug use: Never Types: Cocaine, Amphetamines Comment: hist of cocaine and marajuana use, fentanyl FAMILY HISTORY Problem Relation Age of Onset - Hypertension Mother - Diabetes Mother - Stroke Mother - Heart Mother CHF - Cataract Mother - Hypertension Father - COPD Father - Emphysema Father PAST SURGICAL HISTORY Procedure Laterality Date - IR VASCULAR ACCESS TEAM PICC INSERTION RADIO 06/17/2019 - NONE ROS: All of the following reviewed and negative except as noted below: GENERAL: no fever, chills, sweats, weight loss, fatigue, generalized weakness HEENT: no headache, vision changes, eye discomfort, hearing change, ear discomfort, sinus pain, nasal discharge or congestion, oral lesions, soreness, dental problem NECK: no adenopathy, discomfort, change in ROM CHEST: no shortness of breath, dyspnea on exertion, wheezing, cough, sputum production or chest pain HEART: no chest pain, palpitations, syncope ABDOMEN: no nausea, vomiting, constipation, diarrhea, abdominal pain : no dysuria, urgency, frequency, history of stones, incontinence NEURO: no confusion or alteration in consciousness, slurred speech, seizure, focal weakness EXTREMITIES: no new pain, edema, change in ROM HEME: no new adenopathy, bruises, petechiae PSYCH: no depression, anxiety, agitation PHYSICAL EXAMINATION: see below for new or abnormal findings BP 127/85 Pulse 86 Temp 36.5 ?C (97.7 ?F) (Temporal Artery) Resp 18 Ht 175.3 cm (5' 9) Wt 86 kg (189 lb 9.5 oz) SpO2 100% BMI 28.00 kg/m? BMI 28.00 kg/(m2) Date 07/24/19 07 - 07/25/19 0659 07/25/19 07 - 07/26/19 0659 Shift 0336-5934 1151-0275 9640-3472 24 Hour Total 6455-4743 7881-7378 8070-0334 24 Hour Total INTAKE PO 5544 967 1963 PO 7376 681 1179 IV 300 50 350 Volume (mL) (piperacillin-tazobactam iv piggyback 3.375 g in dextrose (iso-osmotic) 50 mL (ZOSYN)) 50 50 100 Volume (mL) (vancomycin iv piggyback 1.5 g in D5W 250 mL (VANCOCIN)) 250 250 Shift Total 6782 766 3236 OUTPUT Urine 500 1400 1200 3100 Void (ml) 500 1400 1200 3100 Urine Not Saved. 1 x 1 x Shift Total 500 1400 1200 3100 Weight (kg) 86 86 86 86 86 86 86 86 GENERAL: well nourished and developed; no acute distress; alert and oriented x 3; intact judgement and insight. He does appear to be somewhat uncomfortable HEENT: no evidence of trauma; cranial nerves intact; eyes clear EOMI; no hearing deficits apparent; nasal passages unremarkable; throat and mucous membranes clear NECK: supple without lymphadenopathy; no JVD; no thyromegaly CHEST: clear bilaterally to auscultation; normal chest movement; no rales or rhonchi HEART: regular rate and rhythm, normal S1 and S2, no murmurs, clicks, rubs, or gallops ABDOMEN: soft; nondistended; bowel sounds present; no hepatomegaly; no splenomegaly; no tenderness EXTREMITIES: no evidence of clubbing; no cyanosis; no deformity; no joint effusion; no edema. Status post left BKA, cannot evaluate stump, as he is post surgery and wound VAC placement?defer to Orthopedics. NEURO: cranial nerves intact; no focal deficits; no confusion; no tremor; sensorium normal SKIN: no rash; no skin breakdown; no decubitus lesions HEME: no bruising; no adenopathy PSYCH: no evidence of depression; no anxiety; no agitation; no apparent hallucinations PAIN PSYCHIATRIC EXAM: GENERAL: alert, oriented to person, place, time JUDGMENT AND INSIGHT: intact APPEARANCE: neatly groomed DEMEANOR: coooperative, not hostile, mistrustful, preoccupied, or demanding ACTIVITY: normal, not hyperactive or hypoactive, no tremors, tics EYE CONTACT: normal SPEECH: normal, rate, volume, articulation, coherence, spontaneity MOOD: normal, without overt sadness, grief, anxiety, appropriate to situation IDEATION: normal and without suicidal or homicidal ideation MEMORY: intact ABNORMAL/NEW FINDINGS: NONE RADIOLOGY/DIAGNOSTICS: LABORATORY: CBC: Recent Labs 07/26/19 0356 WBC 5.99 RBC 3.63* HB 9.3* HCT 31.3* PLT 287 MCV 86.2 MCH 25.6* MPV 11.1 RDW 13.6 CMP: Recent Labs 07/26/19 0356 NA 137 K 3.9 CHLOR 104 CO2 29 BUN 12 CREAT 0.60* GLUC 162* CA 9.1 ANION 8 Heme: No results for input(s): RETICP, ABSRETIC, LD, VIKRAM, FE, TIBC, TRANSFERSAT in the last 24 hours. 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 ([facility]) Hypertension Gerd (Gastroesophageal Reflux Disease) Microalbuminuria History of Diabetic Gastroparesis Diabetic Polyneuropathy Associated With Type 1 Diabetes Mellitus ([facility]) Depression With Anxiety Charcot's Joint of Right Foot Hyperlipidemia Hep C W/O Coma, Chronic ([facility]) History of Drug Abuse in Remission ([facility]) Ivdu (Intravenous Drug User) Tobacco Abuse Left Ankle Joint Deformity Hyperglycemia Nicotine use disorder, F17.2 Closed Fracture of Left Ankle Sepsis ([facility]) Closed Trimalleolar Fracture of Left Ankle Acute Osteomyelitis Involving Lower Leg, Left ([facility]) History of Left Below Knee Amputation ([facility]) Cellulitis of Left Lower Extremity Cellulitis PLAN: Still with acute left stump pain, status post left BKA, with concerns regarding ongoing infection, may need debridement and wound VAC to possibly be placed today 07/25/2019. Significant concerns regarding prior IV drug abuse. Previously discharged on methadone 10 mg every 12 hours and maintained on this post discharge. Continue increased Methadone 10mg po tid Morphine 4?6 milligrams IV q3h prn Add option Oxycodone 10mg po q4h prn mod/severe pain Anticipate discharge back to SNF; will provide Rxs Discussed with MATT Calvillo MD [facility] PROGRESS HNO ID: [id number] Author: Jayy Vogel Service: Orthopaedic Surgery Author Type: Physician Type: Progress Notes Filed: 07/26/2019 1:17 PM Note Text: ORTHOPAEDIC SURGERY DAILY PROGRESS NOTE Patient Name: Tori Cantor Date of Evaluation: 07/26/2019 Admission Date: 07/20/2019 Time of Evaluation: 6:01 AM ORTHO STAFF: Patient seen and examined. Agree with resident assessment and plan noted below. Will have office schedule appointment 08/01/2019 for vac removal. Discussed with patient and answered all questions. Jayy Vogel MD ASSESSMENT: 44 year old male POD#1 s/p 1) Irrigation of debridement left BKA surgical site abscess 2) Application of wound vac PLAN: -Pain control per pain management -Medical management per primary -DM control per primary -Weight-bearing status: NWB on LLE -Ice/elevate operative extremity -Wound vac VIA in place. Portable wound vac has 7 day battery lifespan. Plan to discontinue on POD#7 and transition to wet to dry dressings. May have this transition at home with [facility] or SNF. -Perioperative antibiotics x 24 hours: Continue empiric antibotics per ID. Final antibiotic recs noted. -DVT Prophylaxis: SCDs, Okay for Lovenox per primary team -Discharge planning. No plan for repeat IANDD at this time. Stable for discharge from orthopedic standpoint. Follow up outpatient with Dr Vogel in 10-14 days for repeat assessment and suture removal. INTERVAL HPI: Patient monitored, no new events overnight. Well Controlled pain. Denies nausea/vomitting. OBJECTIVE: BP 111/77 Pulse 73 Temp 36.6 ?C (97.9 ?F) (Oral) Resp 18 Ht 175.3 cm (5' 9) Wt 86 kg (189 lb 9.5 oz) SpO2 92% BMI 28.00 kg/m? Intake/Output Summary (Last 24 hours) 07/25 2300 - 07/26 0659 In: - Out: 300 [Urine:300] Exam: General: NAD, AAOx3 Extremities: Left Lower Extremity: Wound vac intact with good seal on stump incision. No ascending erythema. Labs: CBC: WBC 5.99 07/26/2019 Hemoglobin 9.3 07/26/2019 Hematocrit 31.3 07/26/2019 Platelet Count 287 07/26/2019 BMP: Sodium 137 07/26/2019 Potassium 3.9 07/26/2019 Chloride 104 07/26/2019 CO2 29 07/26/2019 BUN 12 07/26/2019 Creatinine 0.60 07/26/2019 Glucose 162 07/26/2019 COAGS: APTT 27.6 06/09/2019 PT INR 1.01 06/21/2019 SED RATE/CRP: Sed Rate, Westergren 84 06/08/2019 CRP 23.80 06/08/2019 Velvet Phelps MD PGY-V, Orthopaedic Surgery [facility] Phone #: [phone] Please page [phone] after 5pm or if you need a prompt response 07/26/2019 6:01 AM Normal [facility] THERAPY NTon 07-26-2019 THERAPY NT HNO ID: [id number] Author: Yazmin Gutierrez/Diana Keith OT Service: Occupational Therapy Author Type: Occupational Therapist Type: Therapy (PT/OT/Speech/Resp) Filed: 07/26/2019 3:52 PM Note Text: .OCCUPATIONAL THERAPY MISSED VISIT SERVICE DATE: 07/26/2019 SERVICE TIME: 1551 to 1551 ROOM: [place] [address] Attempted Evaluation. Patient not seen due to (pt has PC and being discharged back to SNF today). SIGNATURE: RASHID Dunaway PATIENT NAME: Tori Cantor DATE: July 26, 2019 TIME: 3:52 PM Normal [facility] THERAPY NT HNO ID: [id number] Author: Andrzej Piedra Service: Physical Therapy Author Type: Physical Therapist Type: Therapy (PT/OT/Speech/Resp) Filed: 07/26/2019 1:57 PM Note Text: PHYSICAL THERAPY MISSED VISIT SERVICE DATE: 07/26/2019 SERVICE TIME: 1356 to 1356 ROOM: [place] [address] Attempted Evaluation. Patient not seen due to (leaving). Spoke with CM. Patient is leaving today and already has precert. No need to see prior to discharge. SIGNATURE: Andrzej Piedra PT PATIENT NAME: Tori Cantor DATE: July 26, 2019 TIME: 1:57 PM Normal [facility] ANES Le 07-25-2019 ANES POST HNO ID: [id number] Author: Ken Jorge Service: Anesthesiology Author Type: Physician Type: Anesthesia PostOp Filed: 07/25/2019 12:21 PM Note Text: POST ANESTHESIA EVALUATION NOTE SERVICE DATE: 07/25/2019 SERVICE TIME: 12:21 PM : 1975 Vitals: 07/25/19 0718 07/25/19 0900 07/25/19 1010 07/25/19 1041 Temp: (!) 35.8 ?C (96.4 ?F) 36.1 ?C (97 ?F) 36.8 ?C (98.2 ?F) 36.5 ?C (97.7 ?F) 07/25/19 0945 07/25/19 1000 07/25/19 1015 07/25/19 1041 BP: 131/75 120/76 134/87 154/88 07/25/19 1000 07/25/19 1010 07/25/19 1015 07/25/19 1041 Pulse: 91 91 94 87 07/25/19 1000 07/25/19 1010 07/25/19 1015 07/25/19 1041 Resp: 11 13 23 16 07/25/19 1010 07/25/19 1015 07/25/19 1041 07/25/19 1053 SpO2: 98% 97% 99% 94% Validated Vital Signs: Yes POST ANES STATUS: No apparent anesthetic complications. The patient is appropriately hydrated with stable respiratory and cardiovascular status. Patient has safe and adequate airway control. The patient has appropriate pain relief and no significant post operative nausea or vomiting. The patient has achieved baseline mental status. Intra-Operative Events: No Significant Anesthesia Events Further assessment by Anesthesia Service: None Other Remarks: SIGNATURE: Ken Jorge MD PATIENT NAME: Tori Cantor DATE: July 25, 2019 TIME: 12:21 PM PAGER/CONTACT #: Jose [facility] ANES PREOPon 07-25-2019 ANES PREOP HNO ID: [id number] Author: Ken Jorge Service: Anesthesiology Author Type: Physician Type: Anesthesia PreOp Filed: 07/25/2019 7:26 AM Note Text: ANESTHESIOLOGY DAY OF SURGERY NOTE SERVICE DATE: 07/25/2019 SERVICE TIME: 7:25 AM : 1975 Procedure(s) (LRB): INCISION AND DRAINAGE POST OP INFECTION LOWER EXTREMITY (Left) APPLICATION WOUND VAC EXTREMITY LOWER TOTAL WOUND SURFACE LESS THAN 50 SQ CENTIMETERS (Left) Surgeon(s): Jayy Vogel Estimated body mass index is 28 kg/m? as calculated from the following: Height as of this encounter: 175.3 cm (5' 9). Weight as of this encounter: 86 kg (189 lb 9.5 oz). Most recent hematocrit and potassium results: Hematocrit 30.4 07/25/2019 Potassium 4.1 07/23/2019 ANES DOS/PREOP NOTE: Vitals: 07/24/19 1644 07/24/19 1933 07/25/19 0240 07/25/19 0718 BP: 142/93 121/75 116/70 121/83 Pulse: 75 78 86 79 Resp: 16 18 18 18 Temp: 36.5 ?C (97.7 ?F) 36.6 ?C (97.9 ?F) 36.7 ?C (98.1 ?F) (!) 35.8 ?C (96.4 ?F) TempSrc: Temporal Oral Oral Temporal SpO2: 99% 99% 94% 95% Weight: Height: ACTIVE PROBLEM LIST Uncontrolled type 1 diabetes mellitus mild nonproliferative retinopathy without macular edema ([facility]) Hypertension Gerd (Gastroesophageal Reflux Disease) Microalbuminuria History of Diabetic Gastroparesis Diabetic Polyneuropathy Associated With Type 1 Diabetes Mellitus ([facility]) Depression With Anxiety Charcot's Joint of Right Foot Hyperlipidemia Hep C W/O Coma, Chronic ([facility]) History of Drug Abuse in Remission ([facility]) Ivdu (Intravenous Drug User) Tobacco Abuse Left Ankle Joint Deformity Hyperglycemia Nicotine use disorder, F17.2 Closed Fracture of Left Ankle Sepsis ([facility]) Closed Trimalleolar Fracture of Left Ankle Acute Osteomyelitis Involving Lower Leg, Left ([facility]) History of Left Below Knee Amputation ([facility]) Cellulitis of Left Lower Extremity Cellulitis 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 - Pancreatitis 08/2014 - Tobacco abuse 05/27/2019 - Trimalleolar fracture of left ankle PAST SURGICAL HISTORY Procedure Laterality Date - IR VASCULAR ACCESS TEAM PICC INSERTION RADIO 06/17/2019 - NONE FAMILY HISTORY Problem Relation Age of Onset - Hypertension Mother - Diabetes Mother - Stroke Mother - Heart Mother CHF - Cataract Mother - Hypertension Father - COPD Father - Emphysema Father Social History: Social History Tobacco Use - Smoking status: Current Every Day Smoker Packs/day: 1.00 Types: Cigarettes - Smokeless tobacco: Never Used Substance Use Topics - Alcohol use: Yes Comment: socially - Drug use: Never Types: Cocaine, Amphetamines Comment: hist of cocaine and marajuana use, fentanyl No current facility-administered medications on file prior to encounter. Current Outpatient Medications on File Prior to Encounter Medication Sig - doxycycline (VIBRA-TABS) 100 mg tablet Take 100 mg by mouth twice daily. For 4 weeks. Course initiated on 07/19/2019. - bisacodyl (DULCOLAX) 10 mg supp 10 mg by RECTAL route once daily as needed for Constipation. If no results from MOM. - methadone (DOLOPHINE) 10 mg tablet Take 10 mg by mouth every 12 hours. - polyethylene glycol 3350 (MIRALAX, GLYCOLAX) 17 gram packet Take 17 g by mouth once daily. With 4 ounces of water. - insulin regular human (NOVOLIN R,HUMULIN R) 100 unit/mL injection Inject 20 Units subcutaneously twice daily before meals. - nystatin (MYCOSTATIN) cream Apply 1 application to scrotum topically two times daily for redness. - metoclopramide HCl (REGLAN) 5 mg tablet Take 5 mg by mouth before meals and at bedtime. - insulin lispro (HUMALOG KWIKPEN) 100 unit/mL inpn Inject 8 Units subcutaneously w MEALS. - DULoxetine (CYMBALTA) 20 mg capsule Take 1 capsule by mouth once daily. - acetaminophen (TYLENOL) 325 mg tablet Take 650 mg by mouth every 6 hours as needed for Pain or Fever. - bisacodyl EC (DULCOLAX, BISACODYL,) 5 mg EC tablet Take 5 mg by mouth once daily as needed for Constipation. - lisinopril (ZESTRIL, PRINIVIL) 10 mg tablet Take 10 mg by mouth once daily. - pregabalin (LYRICA) 100 mg capsule Take 100 mg by mouth three times daily. - magnesium hydroxide (MOM) 400 mg/5 mL suspension Take 30 mL by mouth every 12 hours as needed for Constipation. - ondansetron (ZOFRAN) 4 mg tablet Take 4 mg by mouth every 6 hours as needed (nausea). - senna (SENNA) 8.6 mg tab Take 17.2 mg by mouth twice daily. - ibuprofen (MOTRIN) 400 mg tablet Take 400 mg by mouth every 6 hours as needed (general discomfort). - enoxaparin (LOVENOX) 40 mg/0.4 mL syrg Inject 40 mg subcutaneously every 24 hours. Prophylactic for prevention of DVT. - pantoprazole DR (PROTONIX) 40 mg tablet Take 40 mg by mouth once daily. Current Facility-Administered Medications Medication Dose Route Frequency Provider Last Rate Last Dose - [MAR Hold due to Transfer] iv contrast (radiology procedure) INTRAVENOUS DIRECTED PRN Marie Sahni - [MAR Hold due to Transfer] polyethylene glycol 3350 17 g packet (MIRALAX, GLYCOLAX) 17 g ORAL BID Marie Sahni 17 g at 07/24/19 2213 - [MAR Hold due to Transfer] melatonin 3 mg tab(s) 3 mg ORAL HS PRN Mo Gant) SHRUTHI Delgado.MARTHA - [MAR Hold due to Transfer] vancomycin iv piggyback 1.5 g in D5W 250 mL (VANCOCIN) 1.5 g INTRAVENOUS q 12 HR Laquita Pablo (Pharmacist) 125 mL/hr at 07/25/19 0002 1.5 g at 07/25/19 0002 - [MAR Hold due to Transfer] morphine 4 mg injection 4 mg INTRAVENOUS q 4 H PRN Marie Sahni 4 mg at 07/25/19 0552 - [MAR Hold due to Transfer] insulin lispro 6 Units pen (rapid acting) (HumaLOG KWIKPEN) 6 Units SUBCUTANEOUS w MEALS Marie Sahni 6 Units at 07/24/19 1702 - [MAR Hold due to Transfer] acetaminophen 650 mg tab(s) (TYLENOL) 650 mg ORAL q 6 H PRN [facility] 650 mg at 07/22/19 1259 - [MAR Hold due to Transfer] pregabalin 100 mg cap(s) (LYRICA) 100 mg ORAL TID [facility] 100 mg at 07/24/192139 - [MAR Hold due to Transfer] lisinopril 10 mg tab(s) (ZESTRIL, PRINIVIL) 10 mg ORAL DAILY [facility] 10 mg at 07/24/19921 - [MAR Hold due to Transfer] nystatin 100,000 unit/gram crea (MYCOSTATIN) TOPICAL BID [facility] - [MAR Hold due to Transfer] DULoxetine 20 mg cap(s) (CYMBALTA) 20 mg ORAL DAILY [facility] 20 mg at 07/24/19920 - [MAR Hold due to Transfer] pantoprazole DR 40 mg tab(s) (PROTONIX) 40 mg ORAL DAILY [facility] 40 mg at 07/24/19921 - [MAR Hold due to Transfer] senna 17.2 mg tab(s) (SENOKOT) 17.2 mg ORAL BID [facility] 17.2 mg at 07/24/192139 - [MAR Hold due to Transfer] magnesium hydroxide 400 mg/5 mL 30 mL (MOM) 30 mL ORAL q 12 H PRN [facility] - [MAR Hold due to Transfer] metoclopramide HCl 5 mg (REGLAN) 5 mg ORAL AC and HS [facility] 5 mg at 07/24/192139 - [MAR Hold due to Transfer] enoxaparin 40 mg injection (LOVENOX) 40 mg SUBCUTANEOUS DAILY [facility] 40 mg at 07/24/19920 - [MAR Hold due to Transfer] NaCl 0.9% 3-5 mL 3-5 mL INTRAVENOUS q 12 H [facility] 3 mL at 07/24/19921 - [MAR Hold due to Transfer] ondansetron 4 mg tab(s) (ZOFRAN) 4 mg ORAL q 6 H PRN [facility] Or - [MAR Hold due to Transfer] ondansetron (PF) 4 mg injection (ZOFRAN) 4 mg INTRAVENOUS q 6 H PRN [facility] - [MAR Hold due to Transfer] dextrose 40 % 15 g 15 g ORAL PRN [facility] 15 g at 07/23/19 1622 Or - [MAR Hold due to Transfer] glucagon 1 mg injection (GLUCAGEN) 1 mg INTRAMUSCULAR PRN [facility] Or - [MAR Hold due to Transfer] dextrose 50 % 12.5 g injection 12.5 g INTRAVENOUS PRN [facility] 12.5 g at 07/23/19 1715 - [MAR Hold due to Transfer] insulin lispro pen (rapid acting) (HumaLOG KWIKPEN) SUBCUTANEOUS w MEALS [facility] 2 Units at 07/24/19 1702 - [MAR Hold due to Transfer] vancomycin dosing and monitoring per pharmacy OTHER As Directed [facility] - [MAR Hold due to Transfer] piperacillin-tazobactam iv piggyback 3.375 g in dextrose (iso-osmotic) 50 mL (ZOSYN) 3.375 g INTRAVENOUS q 6 H [facility] 100 mL/hr at 07/25/19 0541 3.375 g at 07/25/19 0541 - [MAR Hold due to Transfer] methadone 10 mg tab(s) (DOLOPHINE) 10 mg ORAL q 12 H [facility] 10 mg at 07/24/19 2140 - [MAR Hold due to Transfer] insulin NPH human 20 Units injection pen (intermediate acting) (NovoLIN N, HumuLIN N) 20 Units SUBCUTANEOUS BID [facility] 10 Units at 07/24/197 Allergies: ALLERGIES No Known Allergies DOS EXAM: Adequate NPO Status: Yes Anesthetic Risks, Benefits, Alternatives, Personnel and Consent Discussed: Yes Patient agrees to proceed: Yes Previous Anesthesia: No history of adverse event Airway Assessment: MP 2; Neck ROM: Full ROM without neurologic symptoms; Airway Evaluation: No significant abnormalities Symptoms of Sleep Apnea: Male gender Dentition: Edentulous Additional Physical Exam: Lungs: Patient health status unchanged since recent history and physical. See history and physical for exam findings. Cardiac: Patient health status unchanged since recent history and physical. See history and physical for exam findings. Additional Pertinent Findings: N/A Blood Products: Will accept Blood/Blood Products Anesthetic Plan: General Anesthetic Monitoring: Standard ASA Monitors Pain Management Plan: Parenteral or Oral ASA Class: 3 Other Medical Problems: Cellulitis Uncontrolled DM1 diabetic polyneuropathy gastroparesis GERD Hep C HLD HTN IVDU Smoker Pancreatitis Trimalleolar ankle fracture SSi s/p BKA for tibial osteomyelitis on 06/24/2019 - plan IANDD and wound vac today (07/25/2019) Antibiotics: - Vancomycin q 12 hours, last dose 0002, next due 1202 - Zosyn q 6 hours, last dose 0541, next due 1141 Recent Lab Values WBC 6.18 07/25/2019 Hemoglobin 9.4 07/25/2019 Hematocrit 30.4 07/25/2019 Platelet Count 277 07/25/2019 PT INR 1.01 06/21/2019 APTT 27.6 06/09/2019 Sodium 136 07/23/2019 Potassium 4.1 07/23/2019 Chloride 102 07/23/2019 CO2 27 07/23/2019 BUN 10 07/23/2019 Creatinine 0.48 07/23/2019 Glucose 197 07/23/2019 Calcium 9.0 07/23/2019 Magnesium 1.9 09/19/2014 GLUCOSE METER 172 07/25/2019 Antibody Screen Date Value Ref Range Status 06/22/2019 NEGATIVE NEGATIVE Final Chronic Beta Andrews medication administered within 24 hours: N/A I have interviewed and examined the patient. I have reviewed the medical record and/or the pre-anesthesia evaluation, pertinent labs, and test results. Significant changes in the patient's condition since the History and Physical, not otherwise documented in primary service progress notes: No This contains updated information obtained within 48 hours of Surgery/Procedure. SIGNATURE: Ken Jorge MD PATIENT NAME: Tori Cantor DATE: July 25, 2019 TIME: 6:58 AM CSN: [id number] JOANNA (06/14/2019) CONCLUSIONS: - Exam indication: Endocarditis - The left ventricle is normal in size. Left ventricular systolic function is normal. EF = 60 ? 5% (visual est.) - The right ventricle is normal in size. Right ventricular systolic function is normal. - The left atrial cavity is mildly dilated. - No mitral valve vegetations seen. - No tricuspid valve vegetations seen. - Trileaflet aortic valve without significant stenosis, insufficiency. Also there are no vegetations. - There is no patent foramen ovale as detected by Doppler and agitated saline contrast. - Exam was compared with the prior CC echocardiographic exam performed on 06/13/19 ?(ECHO). Normal [facility] CONSULTon 07-25-2019 CONSULT HNO ID: [id number] Author: Remy Peraza Service: Pain Management Author Type: Physician Type: Consults Filed: 07/25/2019 11:28 AM Note Text: TORI CANTOR 44 year old PAIN MANAGEMENT: Status post left BKA 06/24/2019, left leg cellulitis, history of left trimalleolar ankle fracture, osteomyelitis, history of IV drug abuse 24 HOUR COMFORT MEDICATIONS: Methadone 10 mg every 12 hours Lyrica 100 mg 3 times a day Morphine 4 mg IV ?6 [place] prescription history shows regular use of methadone 10 mg twice a day, occasional oxycodone or Percocet, regular pregabalin at 100 mg 3 times a day. Methadone last filled on 07/06/2019 for #30 representing a 15 day supply. Antibiotic Therapy: Zosyn/vancomycin Subjective HPI: 44-year-old male, readmitted on 07/20/2019 secondary to cellulitis involving his left leg stump. He is status post left BKA last month, and we were involved in his pain management during that hospitalization. 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 Patient was readmitted to orthopedic service with redislocation of the tibiotalar joint, exposed necrotic tibia and worsening fracture displacement. He underwent left BKA with removal of external fixator 06/24. ? Patient is known to our team from his recent admission 06/09?06/20 for MSSA bacteremia and osteomyelitis. He was discharged to SNF on oxycodone 5 mg #30 ? Prior to admission patient was taking Lyrica 100 mg by mouth 3 times a day. ?He smokes 1 pack per day. ?He denies alcohol. ?He does use marijuana infrequently. ?He states he had done street drugs for 30 years and then he last used a while ago. ?He has a history of IV cocaine and methamphetamine. ?He also admits to history of frequent IV fentanyl use. By the time of his hospital discharge, this patient was on methadone 10 mg every 12 hours, and we will utilizing oxycodone 10?15 milligrams every 3 hours as necessary for pain, the oxycodone was continued only for a short period of time post discharge, but methadone has been continued post discharge at 10 mg every 12 hours. In addition to his current methadone, he is utilizing IV morphine for breakthrough pain. He is also complaining of lower chest and left upper quadrant abdominal pain. He is status post a bowel movement which did seem to help his pain. He is now status post irrigation and debridement of his left BKA surgical site secondary to abscess, with application of wound VAC, and this has aggravated his pain. Current Facility-Administered Medications Medication Dose Route Frequency Provider Last Rate Last Dose - iv contrast (radiology procedure) INTRAVENOUS DIRECTED PRN Marie Sahni - polyethylene glycol 3350 17 g packet (MIRALAX, GLYCOLAX) 17 g ORAL BID Marie Sahni 17 g at 07/24/19 2213 - melatonin 3 mg tab(s) 3 mg ORAL HS PRN Mo (Animal Care Specialist) SHRUTHI Delgado.RETAINING ROOM CUTTER - vancomycin iv piggyback 1.5 g in D5W 250 mL (VANCOCIN) 1.5 g INTRAVENOUS q 12 HR Laquita Pablo (Pharmacist) 125 mL/hr at 07/25/19 0002 1.5 g at 07/25/19 0002 - morphine 4 mg injection 4 mg INTRAVENOUS q 4 H PRN Marie Sahni 4 mg at 07/25/19 0552 - insulin lispro 6 Units pen (rapid acting) (HumaLOG KWIKPEN) 6 Units SUBCUTANEOUS w MEALS Marie Sahni 6 Units at 07/24/19 1702 - acetaminophen 650 mg tab(s) (TYLENOL) 650 mg ORAL q 6 H PRN Nauhar Arciniega 650 mg at 07/22/19 1259 - pregabalin 100 mg cap(s) (LYRICA) 100 mg ORAL TID Nauhar Arciniega 100 mg at 07/24/19 2140 - lisinopril 10 mg tab(s) (ZESTRIL, PRINIVIL) 10 mg ORAL DAILY Nauhar Arciniega 10 mg at 07/24/19 0922 - nystatin 100,000 unit/gram crea (MYCOSTATIN) TOPICAL BID Nauhar Arciniega - DULoxetine 20 mg cap(s) (CYMBALTA) 20 mg ORAL DAILY Nauhar Arciniega 20 mg at 07/24/19920 - pantoprazole DR 40 mg tab(s) (PROTONIX) 40 mg ORAL DAILY Nauhar Arciniega 40 mg at 07/24/19921 - senna 17.2 mg tab(s) (SENOKOT) 17.2 mg ORAL BID Nauhar Arciniega 17.2 mg at 07/24/192139 - magnesium hydroxide 400 mg/5 mL 30 mL (MOM) 30 mL ORAL q 12 [facility] - metoclopramide HCl 5 mg (REGLAN) 5 mg ORAL AC and HS Nauhar Arciniega 5 mg at 07/24/192139 - enoxaparin 40 mg injection (LOVENOX) 40 mg SUBCUTANEOUS DAILY Nauhar Arciniega 40 mg at 07/24/19920 - NaCl 0.9% 3-5 mL 3-5 mL INTRAVENOUS q 12 H Nauhar Arciniega 3 mL at 07/24/19921 - ondansetron 4 mg tab(s) (ZOFRAN) 4 mg ORAL q 6 H PRN Naar Arciniega Or - ondansetron (PF) 4 mg injection (ZOFRAN) 4 mg [facility] - dextrose 40 % 15 g 15 g ORAL PRN Nauhar Arciniega 15 g at 07/23/19 162 Or - glucagon 1 mg injection (GLUCAGEN) 1 [facility] - dextrose 50 % 12.5 g injection 12.5 g INTRAVENOUS PRN Naar Arciniega 12.5 g at 07/23/19 1715 - insulin lispro pen (rapid acting) (HumaLOG KWIKPEN) SUBCUTANEOUS w MEALS Naar Arciniega 2 Units at 07/24/19 1702 - vancomycin dosing and monitoring per pharmacy OTHER As Directed [facility] - piperacillin-tazobactam iv piggyback 3.375 g in dextrose (iso-osmotic) 50 mL (ZOSYN) 3.375 g INTRAVENOUS q 6 H Nauhar Arciniega 100 mL/hr at 07/25/19 0541 3.375 g at 07/25/19 0541 - methadone 10 mg tab(s) (DOLOPHINE) 10 mg ORAL q 12 H [facility] 10 mg at 07/24/19 2140 - insulin NPH human 20 Units injection pen (intermediate acting) (NovoLIN N, HumuLIN N) 20 Units [facility]UT[facility]OUS [facility]ID [facility] at 07/24/19 2207 doxycycline (VIBRA-TABS) 100 mg tablet, Take 100 mg by mouth twice daily. For 4 weeks. Course initiated on 07/19/2019., Disp: , Rfl: bisacodyl (DULCOLAX) 10 mg supp, 10 mg by RECTAL route once daily as needed for Constipation. If no results from MOM., Disp: , Rfl: methadone (DOLOPHINE) 10 mg tablet, Take 10 mg by mouth every 12 hours., Disp: , Rfl: polyethylene glycol 3350 (MIRALAX, GLYCOLAX) 17 gram packet, Take 17 g by mouth once daily. With 4 ounces of water., Disp: , Rfl: insulin regular human (NOVOLIN R,HUMULIN R) 100 unit/mL injection, Inject 20 Units subcutaneously twice daily before meals., Disp: , Rfl: nystatin (MYCOSTATIN) cream, Apply 1 application to scrotum topically two times daily for redness., Disp: , Rfl: metoclopramide HCl (REGLAN) 5 mg tablet, Take 5 mg by mouth before meals and at bedtime., Disp: , Rfl: insulin lispro (HUMALOG KWIKPEN) 100 unit/mL inpn, Inject 8 Units subcutaneously w MEALS., Disp: , Rfl: DULoxetine (CYMBALTA) 20 mg capsule, Take 1 capsule by mouth once daily., Disp: , Rfl: acetaminophen (TYLENOL) 325 mg tablet, Take 650 mg by mouth every 6 hours as needed for Pain or Fever. , Disp: , Rfl: bisacodyl EC (DULCOLAX, BISACODYL,) 5 mg EC tablet, Take 5 mg by mouth once daily as needed for Constipation., Disp: , Rfl: lisinopril (ZESTRIL, PRINIVIL) 10 mg tablet, Take 10 mg by mouth once daily., Disp: , Rfl: pregabalin (LYRICA) 100 mg capsule, Take 100 mg by mouth three times daily., Disp: , Rfl: magnesium hydroxide (MOM) 400 mg/5 mL suspension, Take 30 mL by mouth every 12 hours as needed for Constipation. , Disp: , Rfl: ondansetron (ZOFRAN) 4 mg tablet, Take 4 mg by mouth every 6 hours as needed (nausea)., Disp: , Rfl: senna (SENNA) 8.6 mg tab, Take 17.2 mg by mouth twice daily., Disp: , Rfl: ibuprofen (MOTRIN) 400 mg tablet, Take 400 mg by mouth every 6 hours as needed (general discomfort). , Disp: , Rfl: enoxaparin (LOVENOX) 40 mg/0.4 mL syrg, Inject 40 mg subcutaneously every 24 hours. Prophylactic for prevention of DVT. , Disp: , Rfl: pantoprazole DR (PROTONIX) 40 mg tablet, Take 40 mg by mouth once daily. , Disp: , Rfl: , 05/26/2019 Social History Tobacco Use - Smoking status: Current Every Day Smoker Packs/day: 1.00 Types: Cigarettes - Smokeless tobacco: Never Used Substance Use Topics - Alcohol use: Yes Comment: socially - Drug use: Never Types: Cocaine, Amphetamines Comment: hist of cocaine and marajuana use, fentanyl FAMILY HISTORY Problem Relation Age of Onset - Hypertension Mother - Diabetes Mother - Stroke Mother - Heart Mother CHF - Cataract Mother - Hypertension Father - COPD Father - Emphysema Father PAST SURGICAL HISTORY Procedure Laterality Date - IR VASCULAR ACCESS TEAM PICC INSERTION RADIO 06/17/2019 - NONE ROS: All of the following reviewed and negative except as noted below: GENERAL: no fever, chills, sweats, weight loss, fatigue, generalized weakness HEENT: no headache, vision changes, eye discomfort, hearing change, ear discomfort, sinus pain, nasal discharge or congestion, oral lesions, soreness, dental problem NECK: no adenopathy, discomfort, change in ROM CHEST: no shortness of breath, dyspnea on exertion, wheezing, cough, sputum production or chest pain HEART: no chest pain, palpitations, syncope ABDOMEN: no nausea, vomiting, constipation, diarrhea, abdominal pain : no dysuria, urgency, frequency, history of stones, incontinence NEURO: no confusion or alteration in consciousness, slurred speech, seizure, focal weakness EXTREMITIES: no new pain, edema, change in ROM HEME: no new adenopathy, bruises, petechiae PSYCH: no depression, anxiety, agitation PHYSICAL EXAMINATION: see below for new or abnormal findings BP 116/70 Pulse 86 Temp 36.7 ?C (98.1 ?F) (Oral) Resp 18 Ht 175.3 cm (5' 9) Wt 86 kg (189 lb 9.5 oz) SpO2 94% BMI 28.00 kg/m? BMI 28.00 kg/(m2) Date 07/24/19 07 - 07/25/19 0659 07/25/19 07 - 07/26/19 0659 Shift 1975-9321 2104-4271 5928-9308 24 Hour Total 0474-6503 0112-0507 1693-0557 24 Hour Total INTAKE PO 5796 453 8393 PO 3952 701 9913 IV 300 50 350 Volume (mL) (piperacillin-tazobactam iv piggyback 3.375 g in dextrose (iso-osmotic) 50 mL (ZOSYN)) 50 50 100 Volume (mL) (vancomycin iv piggyback 1.5 g in D5W 250 mL (VANCOCIN)) 250 250 Shift Total 8049 878 2564 OUTPUT Urine 500 1400 1200 3100 Void (ml) 500 1400 1200 3100 Urine Not Saved. 1 x 1 x Shift Total 500 1400 1200 3100 Weight (kg) 86 86 86 86 86 86 86 86 GENERAL: well nourished and developed; no acute distress; alert and oriented x 3; intact judgement and insight. He does appear to be somewhat uncomfortable HEENT: no evidence of trauma; cranial nerves intact; eyes clear EOMI; no hearing deficits apparent; nasal passages unremarkable; throat and mucous membranes clear NECK: supple without lymphadenopathy; no JVD; no thyromegaly CHEST: clear bilaterally to auscultation; normal chest movement; no rales or rhonchi HEART: regular rate and rhythm, normal S1 and S2, no murmurs, clicks, rubs, or gallops ABDOMEN: soft; nondistended; bowel sounds present; no hepatomegaly; no splenomegaly; no tenderness EXTREMITIES: no evidence of clubbing; no cyanosis; no deformity; no joint effusion; no edema. Status post left BKA, cannot evaluate stump, as he is post surgery and wound VAC placement?defer to Orthopedics. NEURO: cranial nerves intact; no focal deficits; no confusion; no tremor; sensorium normal SKIN: no rash; no skin breakdown; no decubitus lesions HEME: no bruising; no adenopathy PSYCH: no evidence of depression; no anxiety; no agitation; no apparent hallucinations PAIN PSYCHIATRIC EXAM: GENERAL: alert, oriented to person, place, time JUDGMENT AND INSIGHT: intact APPEARANCE: neatly groomed DEMEANOR: coooperative, not hostile, mistrustful, preoccupied, or demanding ACTIVITY: normal, not hyperactive or hypoactive, no tremors, tics EYE CONTACT: normal SPEECH: normal, rate, volume, articulation, coherence, spontaneity MOOD: normal, without overt sadness, grief, anxiety, appropriate to situation IDEATION: normal and without suicidal or homicidal ideation MEMORY: intact ABNORMAL/NEW FINDINGS: NONE RADIOLOGY/DIAGNOSTICS: LABORATORY: CBC: Recent Labs 07/25/19 0241 WBC 6.18 RBC 3.60* HB 9.4* HCT 30.4* PLT 277 MCV 84.4 MCH 26.1 MPV 11.1 RDW 13.5 CMP: No results for input(s): NA, K, CHLOR, CO2, BUN, CREAT, GLUC, TPROT, CA, MG, ALBUMIN, TBILI, ALKPHOS, ALT, AST, ANION in the last 24 hours. Heme: No results for input(s): RETICP, ABSRETIC, LD, VIKRAM, FE, TIBC, TRANSFERSAT in the last 24 hours. 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 ([facility]) Hypertension Gerd (Gastroesophageal Reflux Disease) Microalbuminuria History of Diabetic Gastroparesis Diabetic Polyneuropathy Associated With Type 1 Diabetes Mellitus ([facility]) Depression With Anxiety Charcot's Joint of Right Foot Hyperlipidemia Hep C W/O Coma, Chronic ([facility]) History of Drug Abuse in Remission ([facility]) Ivdu (Intravenous Drug User) Tobacco Abuse Left Ankle Joint Deformity Hyperglycemia Nicotine use disorder, F17.2 Closed Fracture of Left Ankle Sepsis ([facility]) Closed Trimalleolar Fracture of Left Ankle Acute Osteomyelitis Involving Lower Leg, Left ([facility]) History of Left Below Knee Amputation ([facility]) Cellulitis of Left Lower Extremity Cellulitis PLAN: Still with acute left stump pain, status post left BKA, with concerns regarding ongoing infection, may need debridement and wound VAC to possibly be placed today 07/25/2019. Significant concerns regarding prior IV drug abuse. Previously discharged on methadone 10 mg every 12 hours and maintained on this post discharge. For now, we'll increase to every 8 hours, as he is in significant pain. Currently utilizing morphine 4 mg IV frequently for breakthrough pain. Will increase this to 4?6 milligrams Abdominal pain has improved status post bowel movement Remy Peraza M.D. Normal [facility] CONSULT PROGon 07-25-2019 CONSULT PROG HNO ID: [id number] Author: Gustavo Morgan (Pharmacist) Service: Pharmacy Author Type: Pharmacist Type: Consult Progress Note Filed: 07/25/2019 12:57 PM Note Text: PHARMACY VANCOMYCIN DOSING NOTE Patient Name: Tori Cantor Admission Date: 07/20/2019 Date of Consult: 07/25/2019 Time of Consult: 12:57 PM Indication: Skin/Soft tissue infection Goal Range: 10-20 mcg/mL RECOMMENDATIONS/PLAN: Pharmacy consulted for vancomycin dosing for Tori Cantor, a 44 year old, male who is being treated with vancomycin for skin and soft tissue infection. The primary service has discontinued vancomycin therapy. Pharmacy vancomycin dosing service will sign off. Thank you for allowing us to participate in this patient's care. Please contact pharmacy if questions. GUSTAVO MORGAN, PHARMACIST Normal [facility] Hemogram/Diffon 07-25-2019 Abs Immature Grans 0.02 thou/cmm Normal 0.00-0.05 [facility] Comment on above: Performed By: #### P 8 #### [place] [address] Abs Neut (ANC) 3.13 thou/cmm Normal 1.78-5.38 [facility] Comment on above: Performed By: #### P 8 #### [place] [address] Abs. Baso 0.08 thou/cmm Normal 0.01-0.08 [facility] Comment on above: Performed By: #### P 8 #### [place] [address] Abs. [place] 0.62 thou/cmm Normal 0.30-0.82 [facility] Comment on above: Performed By: #### P 8 #### [place] [address] Basophils/100 WBC (Bld) 1.3 % Normal [facility] Comment on above: Performed By: #### P 8 #### [facility] [address] [place], [place] [address] Eosinophils (Bld) [#/Vol] 0.49 thou/cmm Normal 0.04-0.54 [facility] Comment on above: Performed By: #### P 8 #### [facility] [address] [place], [place] [address] Eosinophils/100 WBC (Bld) 7.9 % Normal [facility] Comment on above: Performed By: #### P 8 #### [facility] [address] [place] [address] Erythrocyte distribution width (RBC) [Ratio] 13.5 % Normal 11.6-14.4 [facility] Comment on above: Performed By: #### P 8 #### [facility] [address] [place] [address] Hematocrit (Bld) [Volume fraction] 30.4 % Low 40.1-51.0 [facility] Comment on above: Performed By: #### P 8 #### [facility] [address] [place], [place] [address] Hemoglobin (Bld) [Mass/Vol] 9.4 g/dL Low 13.7-17.5 [facility] Comment on above: Performed By: #### P 8 #### [facility] [address] [place], [place] [address] Immature Grans 0.30 % Normal [facility] Comment on above: Performed By: #### P 8 #### [facility] [address] [place], [place] [address] Lymphocytes (Bld) [#/Vol] 1.84 thou/cmm Normal 0.84-2.85 [facility] Comment on above: Performed By: #### P 8 #### [facility] [address] [place], [place] [address] Lymphocytes/100 WBC (Bld) 29.8 % Normal [facility] Comment on above: Performed By: #### P 8 #### [facility] [address] [place] [address] MCH (RBC) [Entitic mass] 26.1 pg Normal 25.7-32.2 [facility] Comment on above: Performed By: #### P 8 #### [facility] [address] [place], [place] [address] MCHC (RBC) [Mass/Vol] 30.9 % Low 32.3-36.5 [facility] Comment on above: Performed By: #### P 8 #### [facility] [address] [place] [address] MCV (RBC) [Entitic vol] 84.4 fL Normal 83.2-95.6 [facility] Comment on above: Performed By: #### P 8 #### [facility] [address] [place] [address] Monocytes/100 WBC (Bld) 10.0 % Normal [facility] Comment on above: Performed By: #### P 8 #### [facility] [address] [place] [address] Platelet mean volume (Bld) [Entitic vol] 11.1 fL Normal 8.7-12.0 [facility] Comment on above: Performed By: #### P 8 #### [facility] [address] [place] [address] Platelets (Bld) [#/Vol] 277 thou/cmm Normal 141-365 [facility] Comment on above: Performed By: #### P 8 #### [facility] [address] [place] [address] RBC (Bld) [#/Vol] 3.60 mil/cmm Low 4.63-6.08 [facility] Comment on above: Performed By: #### P 8 #### [facility] [address] [place] [address] RDW SD 42.0 fl Normal 36.1-45.8 [facility] Comment on above: Performed By: #### P 8 #### [facility] [address] [place] [address] Seg Neutrophil 50.7 % Normal [facility] Comment on above: Performed By: #### P 8 #### [facility] [address] [place] [phone] WBC (Bld) [#/Vol] 6.18 thou/cmm Normal 4.23-9.07 [facility] Comment on above: Performed By: #### P 8 #### [facility] [address] [place] [id number] NURSING PROGon 07-25-2019 NURSING PROG HNO ID: [id number] Author: Mitchell AaronRn) MATT Gómez Service: Nursing Author Type: Registered Nurse Type: Nursing Progress Note Filed: 07/25/2019 1:11 PM Note Text: Nursing Progress Note Patient Name: Tori Cantor Patient Location: [place] [id number] Sahni made aware that pt refused s/s insulin and did not want to take more than his scheduled [address] Sahni okay with this. This note was completed by: Mitchell Gómez RN [facility] NURSING PROG HNO ID: [id number] Author: Katie AaronRn) MATT Perkins Service: ? Author Type: Registered Nurse Type: Nursing Progress Note Filed: 07/25/2019 9:30 AM Note Text: [id number] Dr Jorge notified by text message Of blood sugar 2009, awaiting orders. [facility] OPERATIVE NOon 07-25-2019 OPERATIVE NO HNO ID: [id number] Author: Jayy Vogel Service: Orthopaedic Surgery Author Type: Physician Type: Operative Report Filed: 07/25/2019 8:01 PM Note Text: ORTHOPAEDIC OPERATIVE REPORT PATIENT NAME: Tori Cantor Surgery/Procedure Date: 07/25/2019 Incision/Procedure Start Time: 8:25 AM Incision Close/Procedure End Time: 8:52 AM Surgeon(s) and Innovation Manager(s): Surgeon(s) and Role: * Jayy Vogel - Primary * Velvet Phelps - Resident - Assisting No Additional Staff PRE-OPERATIVE DIAGNOSIS: Left leg-below knee amputation abscess POST-OPERATIVE DIAGNOSIS: Left leg-below knee amputation abscess SURGICAL PROCEDURE(S): Incision and drainage left leg abscess (superficial) with application incisional wound vac Anesthesia: General Implantable Devices: None Complications: None Specimens: None Estimated Blood Loss: minimal OPERATIVE INDICATIONS: This is a 44 year old male who presented with increasing drainage from the lateral side of a left below knee amputation (performed 06/24/2019) after staple removal 07/14/2019. The patient previously had a left trimalleolar fracture dislocation managed conservatively that failed due to multiple issues previously documented. He remains high risk for infection progression based on poorly controlled diabetes, substance abuse, and history of poor compliance with treatment recommendations. Has been managed on IV antibiotics since hospital admission to encourage consolidation of draining area, identified as 3x[address] imaging. Risks and benefits of operative drainage with incisional wound vac application were reviewed in detail with the patient and all questions answered. OPERATIVE PROCEDURE: The patient was brought to the operating room on the hospital bed and transferred supine to the operating table. He was intubated per Anesthesia. The left lower extremity was pre-washed with chlorhexidine. It was padded prepped and sterilely draped for the procedure. The [place] [facility] timeout protocol was performed. The lateral left below knee amputation incision was palpated with no expressible purulence. Surgical scissors were used to bluntly open the lateral 5 cm of incision. Palpation demonstrated a small superficial pocket approximately 3 x 3 cm along the lateral edge containing necrotic subcutaneous tissue. This area was evacuated with suction and gently debrided with a curet. Three liters of saline were irrigated through the area. Hibiclens was used to wash the area, followed by an additional three liters of saline irrigation. Simple and mattress 1 proline suture was placed to close the wound. An incisional wound vac was placed along the entire below knee amputation incision, the medial 80% being previously healed but at risk as above. An morgan wrap was applied. All draping was removed. The patient was extubated per Anesthesia and returned to the hospital bed. He was taken to the recovery room in stable condition. POST-OPERATIVE PLAN: -Pain control - appreciate pain management input -Medical management per primary -Weight-bearing status: NWB on LLE -Ice/elevate operative extremity -Wound vac VIA in place. Portable wound vac has 7 day battery lifespan. Plan to discontinue on POD#7 and transition to wet to dry dressings -Perioperative antibiotics x 24 hours: Continue empiric antibotics per ID -DVT Prophylaxis: SCDs, Okay for Lovenox per primary team -Discharge planning. No plan for repeat IANDD at this time. Will continue with wound vac and IV antibiotics and monitor progress -No family present to update regarding post-surgical state I/primary surgeon/proceduralist performed the procedure with assistance. SIGNATURE: Jayy Vogel MD DATE: July 25, 2019 TIME: 7:50 PM Normal [facility] PROGRESSon 07-25-2019 PROGRESS HNO ID: [id number] Author: Donnell Garcia Service: Infectious Disease Author Type: Physician Type: Progress Notes Filed: 07/25/2019 6:37 PM Note Text: INFECTIOUS DISEASE PROGRESS NOTE Patient Name: Tori Cantor Date: 07/25/2019 ASSESSMENT: 1. Left BKA Incisional Infection with abscess -s/p I and D and found to have superficial abscess laterally with fat necrosis, cx + for MSSA 2. Type I DM 3. High Grade MSSA Bacteremia cleared 06/12, negative JOANNA - RX'd 4. Anemia? ? RECOMMENDATIONS:?? Dc pip.tazo and start ceftriaxone 2 g per day while he is in the hospital. When ready to go home, switch to po cefadroxil 500 mg bid for 4 weeks duration. Will need follow up in the ID clinic at the end of 4 weeks. INTERVAL HISTORY: ROS done with pt/RN and negative unless stated. MEDICATIONS: reviewed. Current Facility-Administered Medications Medication Dose Route Frequency - acetaminophen 650 mg tab(s) (TYLENOL) 650 mg ORAL q 6 H PRN - pregabalin 100 mg cap(s) (LYRICA) 100 mg ORAL TID - lisinopril 10 mg tab(s) (ZESTRIL, PRINIVIL) 10 mg ORAL DAILY - nystatin 100,000 unit/gram crea (MYCOSTATIN) TOPICAL BID - DULoxetine 20 mg cap(s) (CYMBALTA) 20 mg ORAL DAILY - pantoprazole DR 40 mg tab(s) (PROTONIX) 40 mg ORAL DAILY - senna 17.2 mg tab(s) (SENOKOT) 17.2 mg ORAL BID - magnesium hydroxide 400 mg/5 mL 30 mL (MOM) 30 mL ORAL q 12 H PRN - metoclopramide HCl 5 mg (REGLAN) 5 mg ORAL AC and HS - enoxaparin 40 mg injection (LOVENOX) 40 mg SUBCUTANEOUS DAILY - NaCl 0.9% 3-5 mL 3-5 mL INTRAVENOUS q 12 H - ondansetron 4 mg tab(s) (ZOFRAN) 4 mg ORAL q 6 H PRN Or - ondansetron (PF) 4 mg injection (ZOFRAN) 4 mg INTRAVENOUS q 6 H PRN - dextrose 40 % 15 g 15 g ORAL PRN Or - glucagon 1 mg injection (GLUCAGEN) 1 mg INTRAMUSCULAR PRN Or - dextrose 50 % 12.5 g injection 12.5 g INTRAVENOUS PRN - insulin lispro pen (rapid acting) (HumaLOG KWIKPEN) SUBCUTANEOUS w MEALS - piperacillin-tazobactam iv piggyback 3.375 g in dextrose (iso-osmotic) 50 mL (ZOSYN) 3.375 g INTRAVENOUS q 6 H - insulin NPH human 20 Units injection pen (intermediate acting) (NovoLIN N, HumuLIN N) 20 Units SUBCUTANEOUS BID - insulin lispro 6 Units pen (rapid acting) (HumaLOG KWIKPEN) 6 Units SUBCUTANEOUS w MEALS - iv contrast (radiology procedure) INTRAVENOUS DIRECTED PRN - polyethylene glycol 3350 17 g packet (MIRALAX, GLYCOLAX) 17 g ORAL BID - melatonin 3 mg tab(s) 3 mg ORAL HS PRN - methadone 10 mg tab(s) (DOLOPHINE) 10 mg ORAL TID - morphine 4-6 mg injection 4-6 mg INTRAVENOUS q 3 H PRN PHYSICAL EXAM: Vital signs: BP 118/79 Pulse 97 Temp 36.4 ?C (97.5 ?F) (Oral) Resp 17 Ht 175.3 cm (5' 9) Wt 86 kg (189 lb 9.5 oz) SpO2 95% BMI 28.00 kg/m? Temp (24hrs), Av.4 ?C (97.6 ?F), Min:35.8 ?C (96.4 ?F), Max:36.8 ?C (98.2 ?F) General: alert, oriented, NAD Lungs: bilaterally clear to auscultation Heart: regular rate and rhythm Abdomen: soft, non tender, non distended, BS+ Extremities:dressing and left BKA wound vac Skin: no rash IV sites - wnl Lab data: reviewed Recent Labs 07/25/19 0241 07/23/19 2241 07/23/19 0350 WBC 6.18 -- 6.29 HB 9.4* -- 9.8* PLT 277 -- 309 NA -- -- 136 K -- -- 4.1 CO2 -- -- 27 BUN -- -- 10 CREAT -- -- 0.48* VANCORA -- 15.7 -- Microbiology data: reviewed Imaging data: reviewed Donnell Garcia MD General and Orthopedics Infectious Diseases Pager: [phone] [facility] PROGRESS HNO ID: [id number] Author: Marie Sahni Service: Hospital Medicine Author Type: Physician Type: Progress Notes Filed: 07/25/2019 3:56 PM Note Text: DEPARTMENT OF HOSPITAL MEDICINE PROGRESS NOTE SERVICE DATE: 07/21/2019 SERVICE TIME: 11:01 AM Hospital Medicine/Primary Attending: Marie Sahni MD NIGHT AND WEEKEND COVERAGE: After 7pm please page [phone] CHIEF COMPLAINT: Cellulitis, right BKA SUBJECTIVE: Patient had IANDD of right stump with debridement this morning. Tolerated procedure well. Now with increased pain in stump. No shortness of breath. No fever or chills. OBJECTIVE: PHYSICAL EXAM: BP 154/88 Pulse 87 Temp (Src) 97.7 (Oral) Resp 16 Ht 5' 9 (1.75m) Wt 189 lb 9.5 oz (86.0kg) SpO2 94% BMI 27.99 kg/(m2). O2 Therapy: Room Air, Liters: 3 General - AANDOx3, NAD, Calm CV - RRR S1 S2, No M/R/G RESP - CTA B/L No wheezes, ronchi, rales ABD - soft, mild tenderness in the left upper quadrant right below the rib cage. This is slightly lower than was felt yesterday., ND +BS EXT - no gross joint deformity, no clubbing, cyanosis, edema. There is a dressing on the stump applied in surgery along with wound VAC. MEDICATIONS: Current Facility-Administered Medications Medication Dose Route Frequency - acetaminophen 650 mg tab(s) (TYLENOL) 650 mg ORAL q 6 H PRN - pregabalin 100 mg cap(s) (LYRICA) 100 mg ORAL TID - lisinopril 10 mg tab(s) (ZESTRIL, PRINIVIL) 10 mg ORAL DAILY - nystatin 100,000 unit/gram crea (MYCOSTATIN) TOPICAL BID - DULoxetine 20 mg cap(s) (CYMBALTA) 20 mg ORAL DAILY - pantoprazole DR 40 mg tab(s) (PROTONIX) 40 mg ORAL DAILY - senna 17.2 mg tab(s) (SENOKOT) 17.2 mg ORAL BID - magnesium hydroxide 400 mg/5 mL 30 mL (MOM) 30 mL ORAL q 12 H PRN - metoclopramide HCl 5 mg (REGLAN) 5 mg ORAL AC and HS - enoxaparin 40 mg injection (LOVENOX) 40 mg SUBCUTANEOUS DAILY - NaCl 0.9% 3-5 mL 3-5 mL INTRAVENOUS q 12 H - ondansetron 4 mg tab(s) (ZOFRAN) 4 mg ORAL q 6 H PRN Or - ondansetron (PF) 4 mg injection (ZOFRAN) 4 mg INTRAVENOUS q 6 H PRN - dextrose 40 % 15 g 15 g ORAL PRN Or - glucagon 1 mg injection (GLUCAGEN) 1 mg INTRAMUSCULAR PRN Or - dextrose 50 % 12.5 g injection 12.5 g INTRAVENOUS PRN - insulin lispro pen (rapid acting) (HumaLOG KWIKPEN) SUBCUTANEOUS w MEALS - piperacillin-tazobactam iv piggyback 3.375 g in dextrose (iso-osmotic) 50 mL (ZOSYN) 3.375 g INTRAVENOUS q 6 H - insulin NPH human 20 Units injection pen (intermediate acting) (NovoLIN N, HumuLIN N) 20 Units SUBCUTANEOUS BID - insulin lispro 6 Units pen (rapid acting) (HumaLOG KWIKPEN) 6 Units SUBCUTANEOUS w MEALS - iv contrast (radiology procedure) INTRAVENOUS DIRECTED PRN - polyethylene glycol 3350 17 g packet (MIRALAX, GLYCOLAX) 17 g ORAL BID - melatonin 3 mg tab(s) 3 mg ORAL HS PRN - methadone 10 mg tab(s) (DOLOPHINE) 10 mg ORAL TID - morphine 4-6 mg injection 4-6 mg INTRAVENOUS q 3 H PRN DATA: Diagnostic tests reviewed for today's visit: Assessment/Plan 1) Left lower extremity stump cellulitis with abscess - IV Vancomycin pharmacy to dose - IV Zosyn 3.375mg Q6hrs started - Blood cultures negative so far, wound culture growing MSSA. ? 2) History of left BKA - wound explored, debrided, and VAC applied ? 3) Type I DM uncontrolled at baseline with HbA1C 11.3 recently - Continue regimen of NPH 20 units in morning and night - Continue insulin lispro 6 units before meals - Sugars slightly up due to surgery. Should settle. ? 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 5) Tobacco abuse - Counseled on importance of quitting smoking especially with his recent BKA and having uncontrolled DM. ? 6) Opioid abuse in past - Pain consult appreciated. - Tylenol 650mg Q6hrs as needed for fever and mild pain - Methadone 10mg Q12hrs - Lyrica 100mg TID ? 7) Constipation - Resolved ? 8) Diabetic gastroparesis - Continue home Reglan and Protonix ? 9) HTN - Continue home lisinopril 10) Upper abdominal discomfort. - CT of the abdomen and pelvis still pending. VTE Prophylaxis: Lovenox 40mg Sub Q Daily Disposition: Extended Care Facility soon Plan of care discussed with: Patient SIGNATURE: Marie Sahni MD PATIENT NAME: Tori Cantor DATE: July 25, 2019 TIME: 1233 PAGER/CONTACT #: [phone] [facility] PROGRESS HNO ID: [id number] Author: Velvet Phelps Service: Orthopaedic Surgery Author Type: Resident Type: Progress Notes Filed: 07/25/2019 6:06 AM Note Text: ORTHOPAEDIC SURGERY DAILY PROGRESS NOTE Patient Name: Tori Cantor Date of Evaluation: 07/25/2019 Admission Date: 07/20/2019 Time of Evaluation: 6:03 AM ASSESSMENT: 44 year old male with SSI s/p BKA 06/24/19 for tibial osteomyelitis and soft tissue necrosis PLAN: -Pain Control -Management per primary -Abx per ID - Vanc and zosyn -Wound care per wound center -IANDD today with possible application of wound vac -NPO since midnight INTERVAL HPI: Patient monitored, no new events overnight. Well Controlled pain. Denies nausea/vomitting. OBJECTIVE: BP 116/70 Pulse 86 Temp 36.7 ?C (98.1 ?F) (Oral) Resp 18 Ht 175.3 cm (5' 9) Wt 86 kg (189 lb 9.5 oz) SpO2 94% BMI 28.00 kg/m? Intake/Output Summary (Last 24 hours) 07/24 2300 - 07/25 0659 In: - Out: 1200 [Urine:1200] Exam: General: NAD, AAOx3 Extremities: Previous BKA incision with slight erythema over lateral aspect of incision. Reddish yellow discharge on dressing. Slight opening of incision on lateral wound. No obvious fluctuance. ? Labs: CBC: WBC 6.18 07/25/2019 Hemoglobin 9.4 07/25/2019 Hematocrit 30.4 07/25/2019 Platelet Count 277 07/25/2019 BMP: Sodium 136 07/23/2019 Potassium 4.1 07/23/2019 Chloride 102 07/23/2019 CO2 27 07/23/2019 BUN 10 07/23/2019 Creatinine 0.48 07/23/2019 Glucose 197 07/23/2019 COAGS: APTT 27.6 06/09/2019 PT INR 1.01 06/21/2019 SED RATE/CRP: Sed Rate, Westergren 84 06/08/2019 CRP 23.80 06/08/2019 Imaging: CT abdomen/pelvis to evaluate abdominal pain completed but radiology read pending. Velvet Phelps MD PGY-V, Orthopaedic Surgery [facility] Phone #: [phone] Please page [phone] after 5pm or if you need a prompt response 07/25/2019 6:03 AM Normal [facility] CONSULT PROGon 07-24-2019 CONSULT PROG HNO ID: [id number] Author: Elizabeth Orellana (Research Project Manager) Service: Pharmacy Author Type: Pharmacist Type: Consult Progress Note Filed: 07/24/2019 8:06 PM Note Text: PHARMACY VANCOMYCIN DOSING NOTE Patient Name: Tori Cantor Admission Date: 07/20/2019 Date of Consult: 07/24/2019 Time of Consult: 8:00 PM Indication: Skin/Soft tissue infection Goal Range: 10-20 mcg/mL RECOMMENDATIONS/PLAN: Pharmacy consulted for vancomycin dosing for Tori Cantor, a 44 year old, male who is being treated with vancomycin for SSTI. 1. Patient is currently ordered Vancomycin 1.5 g IV q12h. Today is day 5 of therapy. 2. The most recent vancomycin level was 15.7 mcg/mL drawn at 2241 on 07/23/19. This is a 10.5 hour level on the 4 day of therapy. 3. The present dose of vancomycin is the recommended dosage for this patient at this time. Continue therapy as prescribed. 4. The next vancomycin level will be ordered for 07/27/19 at 1100 unless clinically indicated sooner. (Pharmacy will order). Renal function remains stable so will recheck vancomycin level 5 days after last lab. We will follow patient renal function, vancomycin levels and doses with you during the course of therapy. Additional recommendations will appear in follow up notes. If you have any questions, please contact Elizabeth Orellana, PharmD at [phone]. Age: [age] year old Allergies: ALLERGIES No Known Allergies Last 3 Encounter Wt Readings: Date: Wt: 07/20/2019 86 kg (189 lb 9.5 oz) 07/14/2019 70.3 kg (155 lb) 06/21/2019 70.3 kg (155 lb) Last 1 Encounter Ht Readings: Date: Ht: 07/20/2019 175.3 cm (5' 9) CrCl: 211.1 mL/min Temp (24hrs), Av.6 ?C (97.8 ?F), Min:36.4 ?C (97.5 ?F), Max:36.7 ?C (98.1 ?F) - Current Temp: 36.6 ?C (97.9 ?F) Labs BUN (mg/dL) Date Value 07/23/2019 10 07/21/2019 11 07/20/2019 12 Creatinine (mg/dL) Date Value 07/23/2019 0.48 (L) 07/21/2019 0.53 (L) 07/20/2019 0.50 (L) WBC (thou/cmm) Date Value 07/23/2019 6.29 07/21/2019 6.94 07/20/2019 8.01 Vancomycin Levels: Vancomycin,Random (mg/L) Date/Time Value 07/23/2019 2241 15.7 07/22/2019 1015 10.9 Elizabeth Orellana, Research Project Manager [facility] CONSULT PROG HNO ID: [id number] Author: Irina Burgess (Pharmacist) Service: Pharmacy Author Type: Pharmacist Type: Consult Progress Note Filed: 07/23/2019 11:38 PM Note Text: PHARMACY VANCOMYCIN DOSING NOTE Patient Name: Tori Cantor Admission Date: 07/20/2019 Date of Consult: 07/23/2019 Time of Consult: 11:27 PM Indication: Skin/Soft tissue infection Goal Range: 10-20 mcg/mL RECOMMENDATIONS/PLAN: Pharmacy consulted for vancomycin dosing for Tori Cantor, a 44 year old, male who is being treated with vancomycin for Skin/Soft tissue infection 1. Patient is currently ordered Vancomycin 1.5 g IV q12h. Today is day 4 of therapy. 2. The most recent vancomycin level was 15.7 mcg/mL drawn at 2241 on 07-23-2019. This is a ~10 hour level on the 4 day of therapy. 3. The present dose of vancomycin is the recommended dosage for this patient at this time. Continue therapy as prescribed. 4. The next vancomycin level will be ordered for 07-24-2019 @ 2300 unless clinically indicated sooner. (Pharmacy will order) Of note, Incision site infected from recent below knee amputation s/p osteomyelitis We will follow patient renal function, vancomycin levels and doses with you during the course of therapy. Additional recommendations will appear in follow up notes. If [place] [phone]. Age: [age] year old Allergies: ALLERGIES No Known Allergies Last 3 Encounter Wt Readings: Date: Wt: 07/20/2019 86 kg (189 lb 9.5 oz) 07/14/2019 70.3 kg (155 lb) 06/21/2019 70.3 kg (155 lb) Last 1 Encounter Ht Readings: Date: Ht: 07/20/2019 175.3 cm (5' 9) CrCl: 211.1 mL/min Temp (24hrs), Av.6 ?C (97.9 ?F), Min:36.4 ?C (97.5 ?F), Max:36.7 ?C (98.1 ?F) - Current Temp: 36.7 ?C (98.1 ?F) Labs BUN (mg/dL) Date Value 07/23/2019 10 07/21/2019 11 07/20/2019 12 Creatinine (mg/dL) Date Value 07/23/2019 0.48 (L) 07/21/2019 0.53 (L) 07/20/2019 0.50 (L) WBC (thou/cmm) Date Value 07/23/2019 6.29 07/21/2019 6.94 07/20/2019 8.01 Vancomycin Levels: Vancomycin,Random (mg/L) Date/Time Value 07/23/2019 2241 15.7 07/22/2019 1015 10.9 IRINA BURGESS PHARMACIST Normal [facility] PROGRESSon 07-24-2019 PROGRESS HNO ID: [id number] Author: Marie Sahni Service: Hospital Medicine Author Type: Physician Type: Progress Notes Filed: 07/24/2019 10:36 AM Note Text: DEPARTMENT OF HOSPITAL MEDICINE PROGRESS NOTE SERVICE DATE: 07/21/2019 SERVICE TIME: 11:01 AM Hospital Medicine/Primary Attending: Marie Sahni MD NIGHT AND WEEKEND COVERAGE: After 7pm please page [phone] CHIEF COMPLAINT: Cellulitis, right BKA sight SUBJECTIVE: Patient states his lower chest and left upper quadrant abdominal discomfort are improving. Did have a bowel movement and he noted that his abdominal discomfort improved after that. No shortness of breath. No fever or chills. Pain is under control in the right stump. OBJECTIVE: PHYSICAL EXAM: BP 113/75 Pulse 79 Temp (Src) 97.5 (Temporal) Resp 16 Ht 5' 9 (1.75m) Wt 189 lb 9.5 oz (86.0kg) SpO2 97% BMI 27.99 kg/(m2). O2 Therapy: Room Air General - AANDOx3, NAD, Calm CV - RRR S1 S2, No M/R/G RESP - CTA B/L No wheezes, ronchi, rales ABD - soft, mild tenderness in the left upper quadrant right below the rib cage. This is slightly lower than was felt yesterday., ND +BS EXT - no gross joint deformity, no clubbing, cyanosis, edema. Right stump shows about 4-5 inches of erythema on the distal end. There is mild to moderate swelling in this area. The incision is healing nicely on the lateral aspect and is superficially broken down on the medial aspect. He drainage on the dressing.. MEDICATIONS: Current Facility-Administered Medications Medication Dose Route Frequency - acetaminophen 650 mg tab(s) (TYLENOL) 650 mg ORAL q 6 H PRN - pregabalin 100 mg cap(s) (LYRICA) 100 mg ORAL TID - lisinopril 10 mg tab(s) (ZESTRIL, PRINIVIL) 10 mg ORAL DAILY - nystatin 100,000 unit/gram crea (MYCOSTATIN) TOPICAL BID - DULoxetine 20 mg cap(s) (CYMBALTA) 20 mg ORAL DAILY - pantoprazole DR 40 mg tab(s) (PROTONIX) 40 mg ORAL DAILY - senna 17.2 mg tab(s) (SENOKOT) 17.2 mg ORAL BID - magnesium hydroxide 400 mg/5 mL 30 mL (MOM) 30 mL ORAL q 12 H PRN - metoclopramide HCl 5 mg (REGLAN) 5 mg ORAL AC and HS - enoxaparin 40 mg injection (LOVENOX) 40 mg SUBCUTANEOUS DAILY - NaCl 0.9% 3-5 mL 3-5 mL INTRAVENOUS q 12 H - ondansetron 4 mg tab(s) (ZOFRAN) 4 mg ORAL q 6 H PRN Or - ondansetron (PF) 4 mg injection (ZOFRAN) 4 mg INTRAVENOUS q 6 H PRN - dextrose 40 % 15 g 15 g ORAL PRN Or - glucagon 1 mg injection (GLUCAGEN) 1 mg INTRAMUSCULAR PRN Or - dextrose 50 % 12.5 g injection 12.5 g INTRAVENOUS PRN - insulin lispro pen (rapid acting) (HumaLOG KWIKPEN) SUBCUTANEOUS w MEALS - vancomycin dosing and monitoring per pharmacy OTHER As Directed - piperacillin-tazobactam iv piggyback 3.375 g in dextrose (iso-osmotic) 50 mL (ZOSYN) 3.375 g INTRAVENOUS q 6 H - methadone 10 mg tab(s) (DOLOPHINE) 10 mg ORAL q 12 H - insulin NPH human 20 Units injection pen (intermediate acting) (NovoLIN N, HumuLIN N) 20 Units SUBCUTANEOUS BID - morphine 4 mg injection 4 mg INTRAVENOUS q 4 H PRN - insulin lispro 6 Units pen (rapid acting) (HumaLOG KWIKPEN) 6 Units SUBCUTANEOUS w MEALS - vancomycin iv piggyback 1.5 g in D5W 250 mL (VANCOCIN) 1.5 g INTRAVENOUS q 12 HR - iv contrast (radiology procedure) INTRAVENOUS DIRECTED PRN And - enteric contrast (radiology procedure) ORAL DIRECTED PRN - polyethylene glycol 3350 17 g packet (MIRALAX, GLYCOLAX) 17 g ORAL BID - melatonin 3 mg tab(s) 3 mg ORAL HS PRN DATA: Diagnostic tests reviewed for today's visit: Assessment/Plan 1) Left lower extremity stump cellulitis with abscess - IV Vancomycin pharmacy to dose - IV Zosyn 3.375mg Q6hrs started - Blood cultures negative so far, wound culture growing MSSA. ? 2) History of left BKA - Orthopedics reevaluated and is considering wound exploration and wound VAC application. ? 3) Type I DM uncontrolled at baseline with HbA1C 11.3 recently - Continue regimen of NPH 20 units in morning and night - Continue insulin lispro 6 units before meals - ISS - Sugars well controlled ? 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 5) Tobacco abuse - Counseled on importance of quitting smoking especially with his recent BKA and having uncontrolled DM. ? 6) Opioid abuse in past - Seen by pain management last admission is to continue his home regimen that was set: Tylenol 650mg Q6hrs as needed for fever and mild pain Methadone 10mg Q12hrs Lyrica 100mg TID ? 7) Constipation - Resolved ? 8) Diabetic gastroparesis - Continue home Reglan and Protonix ? 9) HTN - Continue home lisinopril 10) Upper abdominal discomfort. - CT of the abdomen and pelvis still pending. VTE Prophylaxis: Lovenox 40mg Sub Q Daily Disposition: Extended Care Facility Plan of care discussed with: Patient SIGNATURE: Marie Sahni MD PATIENT NAME: Tori Cantor DATE: July 21, 2019 TIME: 11:01 AM PAGER/CONTACT #: [phone] [facility] PROGRESS HNO ID: [id number] Author: Pranav Reynolds Service: Orthopaedic Surgery Author Type: Resident Type: Progress Notes Filed: 07/24/2019 6:46 AM Note Text: ORTHOPAEDIC SURGERY DAILY PROGRESS NOTE ASSESMENT: 44 y/o M s/p L BKA 06/24/19 with surgical site infection PLAN: -Pain Control -Management per primary -Abx per ID - Vanc and zosyn -Wound care per wound center -Plan for continued antibiotics and wound check later today. If not improved or if worsened, plan for debridement and application of wound vac with Dr. Vogel 07/25/18 -NPO at midnight INTERVAL HPI: Patient monitored, no new events overnight. Patient states his pain is unchanged from yesterday. No fevers/chills. OBJECTIVE: BP 115/74 Pulse 72 Temp 36.6 ?C (97.9 ?F) (Oral) Resp 18 Ht 175.3 cm (5' 9) Wt 86 kg (189 lb 9.5 oz) SpO2 96% BMI 28.00 kg/m? Intake/Output Summary (Last 24 hours) 07/23 2299 - 07/24 0559 In: - Out: 1949 [Urine:1950] Exam: General: NAD Extremities: Left Lower Extremity: Previous BKA incision with slight erythema over lateral aspect of incision. Reddish yellow discharge on dressing. Slight opening of incision on lateral wound. No obvious fluctuance. Labs: Recent Labs 07/23/19 0350 WBC 6.29 HB 9.8* HCT 31.8* PLT 309 NA 136 K 4.1 CHLOR 102 CO2 27 CREAT 0.48* BUN 10 GLUC 197* CA 9.0 Imaging: No new imaging SIGNATURE: Pranav Reynolds MD PATIENT NAME: Tori Cantor DATE: 07/24/19 TIME: 6:34 AM PAGER/CONTACT #: [phone] Normal [facility] Vancomycin,Randomon 07-24-19 20 INR Coag (Bld) [Relative time] 15.7 mg/L Normal [facility] Comment on above: Result Comment: Trou gh 10.0-20.0 mg/L Peak 18.0-40.0 mg/L Performed By: #### P 8 #### [address] [address] Basic Panelon 07-23-2019 Creatinine [Mass/Vol] 0.48 mg/dL Low 0.67-1.17 [facility] Comment on above: Performed By: #### P 8 #### [address] [address] Anion gap [Moles/Vol] 11 mmol/L Normal 8-16 Car [facility] Comment on above: Performed By: #### P 8 #### [address] [address] CO2 [Moles/Vol] 27 mmol/L Normal 21-32 [facility] Comment on above: Performed By: #### P 8 #### [address] [address] Urea nitrogen [Mass/Vol] 10 mg/dL Normal 7-18 [facility] Comment on above: Performed By: #### P 8 #### [facility] [address] [place], [place] [address] Calcium [Mass/Vol] 9.0 mg/dL Normal 8.5-10.1 [facility] Comment on above: Performed By: #### P 8 #### [facility] [address] [place], [place] [address] Glucose [Mass/Vol] 197 mg/dL High 70-99 [facility] Comment on above: Performed By: #### P 8 #### [facility] [address] [place], [place] [address] Chloride [Moles/Vol] 102 mmol/L Normal 98-107 [facility] Comment on above: Performed By: #### P 8 #### [facility] [address] [place], [place] [address] Potassium [Moles/Vol] 4.1 mmol/L Normal 3.5-5.1 [facility] Comment on above: Performed By: #### P 8 #### [facility] [address] [place], [place] [address] Sodium [Moles/Vol] 136 mmol/L Normal 136-145 [facility] Comment on above: Performed By: #### P 8 #### [facility] [address] [place], [place] [address] CT ABD/PEL W IVCONon 020 CT ABD/PEL W IVCON * * *Final Report* * * DATE OF EXAM: Jul 23 2019 5:40PM [facility] 0530 - CT ABD/PEL W IVCON / PROCEDURE REASON: Abdominal pain, acute, nonlocalized * * * * Physician Interpretation * * * * EXAMINATION: CT ABDOMEN AND PELVIS WITH IV CONTRAST CLINICAL HISTORY: Acute abdominal pain. Nonlocalized. TECHNIQUE: CT of the abdomen and pelvis was performed using standard technique, scanning from just above the dome of the diaphragm to the symphysis pubis. MQ: CTAP_3 Contrast: IV: 150 ml of Omnipaque 300 Oral: [address] Radiation dose: Integrated Dose-length product (DLP) for this visit = 296 mGy*cm. CT Dose Reduction Employed: Automated exposure control(AEC) and iterative recon COMPARISON: CT angiogram dated 06/09/2019 RESULT: Liver: Unremarkable. Biliary: No bile duct dilation. The gallbladder is contracted. Spleen: No mass. No splenomegaly. Pancreas: No mass or duct dilation. Adrenals: No mass. Kidneys: Both kidneys are unremarkable. No renal parenchymal abnormality other than small 10 mm fluid density structure lower pole left kidney most consistent with cyst. No renal or ureteral stone. No hydronephrosis. GI tract: The stomach is distended with oral contrast and ingested material. No dilated small bowel. Moderate amount of stool is seen throughout the colon. The appendix is not clearly identified. Lymph nodes: There are several less than 10 mm short axis diameter lymph nodes noted along the left external iliac vasculature. Similar to prior exam of 06/09/2019 and most likely reactive. There is enlarged left inguinal lymph node measuring up to 1.8 cm short axis diameter on 2:154. Stable. Mesentery/Peritoneum: No ascites or mass. Retroperitoneum: No mass. Vasculature: The celiac axis and SMA are patent. The portal vein and branches, splenic vein, SMV, and hepatic veins are patent. Pelvis: No mass, ascites or fluid collection. Bones/Soft Tissues: No significant additional findings. Lower thorax: No significant additional findings. IMPRESSION: No acute intra-abdominal or pelvic findings. Prominent lymph nodes noted in the left inguinal region and left pelvis are stable and most likely reactive in nature. The appendix is not clearly visualized. No findings to suggest acute appendicitis. Av Specialist: BEN Transcribe Date/Time: Jul 25 2019 1:56P Dictated by : EVARISTO SIMON MD This examination was interpreted and the report reviewed and electronically signed by: EVARISTO SIMON MD on Jul 25 2019 2:05PM EST Normal [facility] Hemogram/Diffon 07-23-2019 Abs Immature Grans 0.02 thou/cmm Normal 0.00-0.05 [facility] Comment on above: Performed By: #### P 8 #### [place] [address] Abs Neut (ANC) 3.28 thou/cmm Normal 1.78-5.38 [facility] Comment on above: Performed By: #### P 8 #### [facility] [address] [place], [place] [address] Abs. Baso 0.09 thou/cmm High 0.01-0.08 [facility] Comment on above: Performed By: #### P 8 #### [facility] [address] [place], [place] [address] Abs. [place] 0.61 thou/cmm Normal 0.30-0.82 [facility] Comment on above: Performed By: #### P 8 #### [facility] [address] [place] [address] Basophils/100 WBC (Bld) 1.4 % Normal [facility] Comment on above: Performed By: #### P 8 #### [facility] [address] [place] [address] Eosinophils (Bld) [#/Vol] 0.38 thou/cmm Normal 0.04-0.54 [facility] Comment on above: Performed By: #### P 8 #### [facility] [address] [place] [address] Eosinophils/100 WBC (Bld) 6.0 % Normal [facility] Comment on above: Performed By: #### P 8 #### [facility] [address] [place] [address] Erythrocyte distribution width (RBC) [Ratio] 13.6 % Normal 11.6-14.4 [facility] Comment on above: Performed By: #### P 8 #### [facility] [address] [place] [address] Hematocrit (Bld) [Volume fraction] 31.8 % Low 40.1-51.0 [facility] Comment on above: Performed By: #### P 8 #### [facility] [address] [place] [address] Hemoglobin (Bld) [Mass/Vol] 9.8 g/dL Low 13.7-17.5 [facility] Comment on above: Performed By: #### P 8 #### [facility] [address] [place] [address] Immature Grans 0.30 % Normal [facility] Comment on above: Performed By: #### P 8 #### [facility] [address] [place], [place] [address] Lymphocytes (Bld) [#/Vol] 1.91 thou/cmm Normal 0.84-2.85 [facility] Comment on above: Performed By: #### P 8 #### [facility] [address] [place], [place] [address] Lymphocytes/100 WBC (Bld) 30.4 % Normal [facility] Comment on above: Performed By: #### P 8 #### [facility] [address] [place], [place] [address] MCH (RBC) [Entitic mass] 26.1 pg Normal 25.7-32.2 [facility] Comment on above: Performed By: #### P 8 #### [facility] [address] [place], [place] [address] MCHC (RBC) [Mass/Vol] 30.8 % Low 32.3-36.5 [facility] Comment on above: Performed By: #### P 8 #### [facility] [address] [place], [place] [address] MCV (RBC) [Entitic vol] 84.6 fL Normal 83.2-95.6 [facility] Comment on above: Performed By: #### P 8 #### [facility] [address] [place], [place] [address] Monocytes/100 WBC (Bld) 9.7 % Normal [facility] Comment on above: Performed By: #### P 8 #### [facility] [address] [place], [place] [address] Platelet mean volume (Bld) [Entitic vol] 11.2 fL Normal 8.7-12.0 [facility] Comment on above: Performed By: #### P 8 #### [facility] [address] [place], [place] [address] Platelets (Bld) [#/Vol] 309 thou/cmm Normal 141-365 [facility] Comment on above: Performed By: #### P 8 #### [facility] [address] [place], [place] [address] RBC (Bld) [#/Vol] 3.76 mil/cmm Low 4.63-6.08 [facility] Comment on above: Performed By: #### P 8 #### [facility] [address] [place], [place] [address] RDW SD 42.1 fl Normal 36.1-45.8 [facility] Comment on above: Performed By: #### P 8 #### [facility] [address] [place], [place] [address] Seg Neutrophil 52.2 % Normal [facility] Comment on above: Performed By: #### P 8 #### [facility] [address] [place], [place] [address] WBC (Bld) [#/Vol] 6.29 thou/cmm Normal 4.23-9.07 [facility] Comment on above: Performed By: #### P 8 #### [facility] [address] [place] [address] NURSING PROGon 07-23-2019 NURSING PROG HNO ID: [id number] Author: Miguelangel (Rn) MATT Zacarias Service: Nursing Author Type: Registered Nurse Type: Nursing Progress Note Filed: 07/23/2019 5:20 PM Note Text: Nursing Progress Note Patient Name: Tori Cantor Patient Location: [place] [id number] Daily Note:Dr Sahni notified of hypoglycemia, ordered to give 1/2 amp D50 proir to leaving for CT and recheck when back. This note was completed by: Miguelangel Zacarias RN Normal [facility] PROGRESSon 07-23-2019 PROGRESS HNO ID: [id number] Author: Marie Sahni Service: Hospital Medicine Author Type: Physician Type: Progress Notes Filed: 07/23/2019 1:33 PM Note Text: DEPARTMENT OF HOSPITAL MEDICINE PROGRESS NOTE SERVICE DATE: 07/21/2019 SERVICE TIME: 11:01 AM Hospital Medicine/Primary Attending: Marie Sahni MD NIGHT AND WEEKEND COVERAGE: After 7pm please page [phone] CHIEF COMPLAINT: Cellulitis, right BKA sight SUBJECTIVE: Patient states his lower chest and left upper quadrant abdominal discomfort are better today. Has not had a bowel movement in several days. No shortness of breath. No fever or chills. Pain is under control in the right stump. OBJECTIVE: PHYSICAL EXAM: BP 111/72 Pulse 75 Temp (Src) 97.7 (Temporal) Resp 16 Ht 5' 9 (1.75m) Wt 189 lb 9.5 oz (86.0kg) SpO2 93% BMI 27.99 kg/(m2). O2 Therapy: Room Air General - AANDOx3, NAD, Calm CV - RRR S1 S2, No M/R/G RESP - CTA B/L No wheezes, ronchi, rales ABD - soft, mild tenderness in the left upper quadrant right below the rib cage. This is slightly lower than was felt yesterday., ND +BS EXT - no gross joint deformity, no clubbing, cyanosis, edema. Right stump shows about 4-5 inches of erythema on the distal end. There is mild to moderate swelling in this area. The incision is healing nicely on the lateral aspect and is superficially broken down on the medial aspect. He drainage on the dressing.. MEDICATIONS: Current Facility-Administered Medications Medication Dose Route Frequency - acetaminophen 650 mg tab(s) (TYLENOL) 650 mg ORAL q 6 H PRN - pregabalin 100 mg cap(s) (LYRICA) 100 mg ORAL TID - lisinopril 10 mg tab(s) (ZESTRIL, PRINIVIL) 10 mg ORAL DAILY - nystatin 100,000 unit/gram crea (MYCOSTATIN) TOPICAL BID - DULoxetine 20 mg cap(s) (CYMBALTA) 20 mg ORAL DAILY - pantoprazole DR 40 mg tab(s) (PROTONIX) 40 mg ORAL DAILY - senna 17.2 mg tab(s) (SENOKOT) 17.2 mg ORAL BID - polyethylene glycol 3350 17 g packet (MIRALAX, GLYCOLAX) 17 g ORAL DAILY - magnesium hydroxide 400 mg/5 mL 30 mL (MOM) 30 mL ORAL q 12 H PRN - metoclopramide HCl 5 mg (REGLAN) 5 mg ORAL AC and HS - enoxaparin 40 mg injection (LOVENOX) 40 mg SUBCUTANEOUS DAILY - NaCl 0.9% 3-5 mL 3-5 mL INTRAVENOUS q 12 H - ondansetron 4 mg tab(s) (ZOFRAN) 4 mg ORAL q 6 H PRN Or - ondansetron (PF) 4 mg injection (ZOFRAN) 4 mg INTRAVENOUS q 6 H PRN - dextrose 40 % 15 g 15 g ORAL PRN Or - glucagon 1 mg injection (GLUCAGEN) 1 mg INTRAMUSCULAR PRN Or - dextrose 50 % 12.5 g injection 12.5 g INTRAVENOUS PRN - insulin lispro pen (rapid acting) (HumaLOG KWIKPEN) SUBCUTANEOUS w MEALS - vancomycin dosing and monitoring per pharmacy OTHER As Directed - piperacillin-tazobactam iv piggyback 3.375 g in dextrose (iso-osmotic) 50 mL (ZOSYN) 3.375 g INTRAVENOUS q 6 H - methadone 10 mg tab(s) (DOLOPHINE) 10 mg ORAL q 12 H - insulin NPH human 20 Units injection pen (intermediate acting) (NovoLIN N, HumuLIN N) 20 Units SUBCUTANEOUS BID - morphine 4 mg injection 4 mg INTRAVENOUS q 4 H PRN - insulin lispro 6 Units pen (rapid acting) (HumaLOG KWIKPEN) 6 Units SUBCUTANEOUS w MEALS - vancomycin iv piggyback 1.5 g in D5W 250 mL (VANCOCIN) 1.5 g INTRAVENOUS q 12 HR DATA: Diagnostic tests reviewed for today's visit: Assessment/Plan 1) Left lower extremity stump cellulitis with abscess - IV Vancomycin pharmacy to dose - IV Zosyn 3.375mg Q6hrs started - Blood cultures negative so far, wound culture growing staph aureus. ? 2) History of left BKA - Orthopedics reevaluated and does not recommend incision and drainage ? 3) Type I DM uncontrolled at baseline with HbA1C 11.3 recently - Continue regimen of NPH 20 units in morning and night - Continue insulin lispro 8 units before meals - ISS - No need for endocrine consult currently, follows Dr. Del Real as OP ? 4) history of IVDA - stopped using 1 year ago ? 5) Tobacco abuse - Counseled on importance of quitting smoking especially with his recent BKA and having uncontrolled DM. ? 6) opioid abuse in past - Seen by pain management last admission is to continue his home regimen that was set: Tylenol 650mg Q6hrs as needed for fever and mild pain Methadone 10mg Q12hrs Lyrica 100mg TID ? 7) Constipation - Continue Senna S BID - Continue Miralax ? 8) Diabetic gastroparesis - Continue home Reglan and Protonix ? 9) HTN - Continue home lisinopril 10) Upper abdominal discomfort. - We'll check a CT of the abdomen and pelvis. This discomfort has been present for over 2 weeks now and is moderate to severe at times. VTE Prophylaxis: Lovenox 40mg Sub Q Daily Disposition: Extended Care Facility Plan of care discussed with: Patient SIGNATURE: Marie Sahni MD PATIENT NAME: Tori Cantor DATE: July 21, 2019 TIME: 11:01 AM PAGER/CONTACT #: [phone] [facility] PROGRESS HNO ID: [id number] Author: Jayy Vogel Service: Orthopaedic Surgery Author Type: Physician Type: Progress Notes Filed: 07/23/2019 2:11 PM Note Text: ORTHOPAEDIC SURGERY DAILY PROGRESS NOTE ORTHO STAFF: Patient seen and examined. Agree with resident assessment and plan noted below. Left leg lateral wound about the same with blood tinged yellow drainage on gauze. Could not express fluid. Erythema increased over distal stump. Redressed amputation site. Plan to allow IV antibiotics through tomorrow and recheck wound; if no improvement will debride 07/25/2019 and likely apply wound vac to lateral side. Discussed in detail with patient and answered all questions. Jayy Vogel MD ASSESMENT: 44 y/o M s/p L BKA 06/24/19 with surgical site infection PLAN: -Pain Control -Management per primary -Abx per ID - Vanc -Wound care per wound center -CT results demonstrate a small abscess at lateral aspect of wound. -Continue plan for conservative management with wound care and IV abx as patient is at very high risk for wound complications with any new incision. INTERVAL HPI: Patient monitored, no new events overnight. Patient states he is having some pain which is unchanged from yesterday. No fevers/chills. OBJECTIVE: BP 128/74 Pulse 70 Temp 36.7 ?C (98.1 ?F) (Oral) Resp 18 Ht 175.3 cm (5' 9) Wt 86 kg (189 lb 9.5 oz) SpO2 99% BMI 28.00 kg/m? Intake/Output Summary (Last 24 hours) 07/220 - 07/23 0659 In: 660 [PO:360; IV:300] Out: 2225 [Urine:2225] Exam: General: NAD Extremities: Left Lower Extremity: Previous BKA incision appears without erythema this am, skin WNL. Incision healing well aside from continued serosanguinous drainage laterally. No signficiant TTP over incision site. No palpable fluctuance or crepitus. Compartments of thigh are soft, compressible. Labs: Recent Labs 07/23/19 0350 07/21/19 0423 07/20/19 1030 WBC 6.29 6.94 8.01 HB 9.8* 9.0* 9.5* HCT 31.8* 29.3* 30.8* PLT 309 273 292 NA 136 137 131* K 4.1 4.2 4.3 CHLOR 102 105 100 CO2 27 29 29 CREAT 0.48* 0.53* 0.50* BUN 10 11 12 GLUC 197* 199* 198* TPROT -- -- 8.2 ALB -- -- 2.7* CA 9.0 8.8 8.9 ALKPHOS -- -- 80 TBILI -- -- 0.4 AST -- -- 16 ALT -- -- 9* Imaging: CT pending SIGNATURE: Pranav Reynolds MD PATIENT NAME: Tori Cantor DATE: 07/23/19 TIME: 6:53 AM PAGER/CONTACT #: [phone] [facility] CASE MANAGEMon 07-22-2019 CASE MANAGEM HNO ID: [id number] Author: Muna (Rn) MATT Cordero Service: Care Management Author Type: Registered Nurse Type: Care Mgt Progress Note Filed: 07/22/2019 3:13 PM Note Text: CARE MANAGEMENT PROGRESS NOTE SERVICE DATE: 07/22/2019 SERVICE TIME: 1512 LOS: 2 days Needs Prior to Discharge: Facility or Agency Choices;Insurance Authorization;Discharge Transportation Will need precert to return to [facility]. Will need PT OT evaluations SIGNATURE: Muna Cordero RN PATIENT NAME: Tori Cantor DATE: July 22, 2019 TIME: 3:12 PM PAGER/CONTACT #: [phone] [facility] CONSULT PROGon 07-22-2019 CONSULT PROG HNO ID: [id number] Author: Laquita Pablo (Pharmacist) Service: Pharmacy Author Type: Pharmacist Type: Consult Progress Note Filed: 07/22/2019 11:25 AM Note Text: PHARMACY VANCOMYCIN DOSING NOTE Patient Name: Tori Cantor Admission Date: 07/20/2019 Date of Consult: 07/22/2019 Time of Consult: 11:18 AM Indication: Skin/Soft tissue infection Goal Range: 10-20 mcg/mL RECOMMENDATIONS/PLAN: Pharmacy consulted for vancomycin dosing for Tori Cantor, a 44 year old, male who is being treated with vancomycin for cellulitis. 1. Patient is currently ordered Vancomycin 1.25 g IV q12h. Today is day 3 of therapy. 2. The most recent vancomycin level was 10.9 mcg/mL drawn at 1015 on 07/22/2019. This is a 11 hour level on the 3rd day of therapy. 3. Will increase vancomycin to 1.5 g with a dosing interval of q12h. The vancomycin trough reached the therapeutic goal range, but the dose has been slightly increased due to the level being borderline on the lower end of the goal range. 4. The next vancomycin level has been ordered for 07/23/2019 @ 2300 (before the 4th dose of the new regimen) (Completed) We will follow patient renal function, vancomycin levels and doses with you during the course of therapy. Additional recommendations will appear in follow up notes. If you have any questions, please contact pharmacy at [phone] (before 16:30) or [phone] (after 16:30). Age: [age] year old Allergies: ALLERGIES No Known Allergies Last 3 Encounter Wt Readings: Date: Wt: 07/20/2019 86 kg (189 lb 9.5 oz) 07/14/2019 70.3 kg (155 lb) 06/21/2019 70.3 kg (155 lb) Last 1 Encounter Ht Readings: Date: Ht: 07/20/2019 175.3 cm (5' 9) CrCl: 191.2 mL/min Temp (24hrs), Av.6 ?C (97.9 ?F), Min:36.2 ?C (97.2 ?F), Max:36.9 ?C (98.4 ?F) - Current Temp: 36.2 ?C (97.2 ?F) Labs BUN (mg/dL) Date Value 07/21/2019 11 07/20/2019 12 06/26/2019 11 Creatinine (mg/dL) Date Value 07/21/2019 0.53 (L) 07/20/2019 0.50 (L) 06/26/2019 0.55 (L) WBC (thou/cmm) Date Value 07/21/2019 6.94 07/20/2019 8.01 06/24/2019 7.31 Vancomycin Levels: Vancomycin,Random (mg/L) Date/Time Value 07/22/2019 1015 10.9 06/11/2019 1535 16.7 LAQUITA PABLO PHARMACIST [facility] CONSULT PROG HNO ID: [id number] Author: Trinidad (Rn) MATT Cazlada Service: Wound/Ostomy Author Type: Registered Nurse Type: Consult Progress Note Filed: 07/22/2019 9:58 AM Note Text: WOUND CARE NURSE CONSULT NOTE SERVICE DATE: 07/22/2019 SERVICE TIME: 924 REASON FOR VISIT: Wound TIME SPENT (minutes): 30 Documentation from Wound Expert can be found in scanned documents.Patient seen today by Kelly Tripp GRIDCAP MACHINE OPERATOR and RN. Patient's incision left AKA with black/red Wound bed, measures 0.7x5.5x1.6, depth is from more in the center of the incision line, tunnels somewhat up towards 12 o'clock, scant amount opaque/ss drainage, no odor, slight erythema, plan is for mesalt daily to incision line and packed into 1.6cm area. A photo was taken of the patient's wound(s)/stoma. Photos can be found under the Get Images tab on [employer]. Photos are uploaded by the wound/ostomy acute care clinical nurse specialist and may not be immediately available for viewing. Contact the wound and ostomy care department with questions. SIGNATURE: CELENA Abdullahi,RN,CWON PATIENT NAME: Tori Cantor DATE: July 22, 2019 TIME: 9:54 AM CONTACT#: [id number] [facility] [address] KNEE W IVCON LTon 020 CT KNEE W IVCON LT * * *Final Report* * * DATE OF EXAM: Jul 22 2019 10:54AM [facility] 0036 - CT KNEE W IVCON LT / PROCEDURE REASON: Lower leg erythema, swelling, cellulitis suspected * * * * Physician Interpretation * * * * EXAM TITLE: CT LEFT KNEE WITH IV CONTRAST: DATE: 07/22/2019 COMPARISON: Prior CT study 06/14/2019, radiographs 06/21/2019 CLINICAL INDICATION/HISTORY: Status post left lower extremity BKA with soft tissue pain, swelling and erythema. TECHNIQUE: CT examination of the left knee performed as per routine protocol with sagittal and coronal reconstruction images. CT Radiation dose: Integrated Dose-length product (DLP) for this visit = 187 mGy*cm. CT Dose Reduction Employed: Automated exposure control(AEC) and iterative recon IV contrast: 100 mL Omnipaque 300 FINDINGS: Since the previous examinations, the patient has undergone interval [id number] amputation. The amputation appears to occur at approximately the junction of the proximal and middle thirds of the tibia and fibula. Bony margins appear sharp with out concerning findings of osteomyelitis. Surgical defects are seen within the tibia. There is an encapsulated, peripherally enhancing, mildly heterogeneous fluid collection seen within the inferolateral soft tissues of the leg along the distal amputation site. This presumed abscess measures approximately 3.5 x 2.8 x 3.6 cm in transverse, AP and craniocaudal dimensions respectively. There is diffuse swelling and ill-definition of the anterolateral musculature of the leg extending to this abscess likely indicative of myositis. There is also mild muscle edema along the most distal portion of the stump. There is no other encapsulated fluid collection identified. There is diffuse skin thickening noted distally along with subcutaneous fat stranding compatible with cellulitis. There is a small joint effusion. There is soft tissue edema noted within the distal thigh. IMPRESSION: Interval BKA since the prior study. In addition to diffuse cellulitis and presumed myositis, there is an encapsulated fluid collection most compatible with abscess involving the inferolateral soft tissues measuring 3.5 x 2.8 x 3.6 cm. Av Specialist: PSCB Transcribe Date/Time: Jul 22 2019 2:04P Dictated by : ANGELITA YIN MD This examination was interpreted and the report reviewed and electronically signed by: ANGELITA YIN MD on Jul 22 2019 2:15PM EST Normal [facility] PROGRESSon 07-22-2019 PROGRESS HNO ID: [id number] Author: Donnell Garcia Service: Infectious Disease Author Type: Physician Type: Progress Notes Filed: 07/22/2019 7:06 PM Note Text: INFECTIOUS DISEASE PROGRESS NOTE Patient Name: Tori Cantor Date: 07/22/2019 ASSESSMENT: 1. Left BKA Incisional Infection with abscess - + GPC - s/p BKA 06/24/19 - previous cultures with MSSA 2. Type I DM 3. High Grade MSSA Bacteremia cleared 06/12, negative JOANNA - RX'd 4. Anemia ? RECOMMENDATIONS: Continue Vancomycin F/U Final Wound Cx Ortho to evaluate for I AND D INTERVAL HISTORY: Afebrile. Had CT Left Stump with showed an encapsulated fluid collection compatible with abscess No n/v/d/f/c. Wound CX growing GPC MEDICATIONS: reviewed. Current Facility-Administered Medications Medication Dose Route Frequency - acetaminophen 650 mg tab(s) (TYLENOL) 650 mg ORAL q 6 H PRN - pregabalin 100 mg cap(s) (LYRICA) 100 mg ORAL TID - lisinopril 10 mg tab(s) (ZESTRIL, PRINIVIL) 10 mg ORAL DAILY - nystatin 100,000 unit/gram crea (MYCOSTATIN) TOPICAL BID - DULoxetine 20 mg cap(s) (CYMBALTA) 20 mg ORAL DAILY - pantoprazole DR 40 mg tab(s) (PROTONIX) 40 mg ORAL DAILY - senna 17.2 mg tab(s) (SENOKOT) 17.2 mg ORAL BID - polyethylene glycol 3350 17 g packet (MIRALAX, GLYCOLAX) 17 g ORAL DAILY - magnesium hydroxide 400 mg/5 mL 30 mL (MOM) 30 mL ORAL q 12 H PRN - metoclopramide HCl 5 mg (REGLAN) 5 mg ORAL AC and HS - enoxaparin 40 mg injection (LOVENOX) 40 mg SUBCUTANEOUS DAILY - NaCl 0.9% 3-5 mL 3-5 mL INTRAVENOUS q 12 H - ondansetron 4 mg tab(s) (ZOFRAN) 4 mg ORAL q 6 H PRN Or - ondansetron (PF) 4 mg injection (ZOFRAN) 4 mg INTRAVENOUS q 6 H PRN - dextrose 40 % 15 g 15 g ORAL PRN Or - glucagon 1 mg injection (GLUCAGEN) 1 mg INTRAMUSCULAR PRN Or - dextrose 50 % 12.5 g injection 12.5 g INTRAVENOUS PRN - insulin lispro pen (rapid acting) (HumaLOG KWIKPEN) SUBCUTANEOUS w MEALS - vancomycin dosing and monitoring per pharmacy OTHER As Directed - piperacillin-tazobactam iv piggyback 3.375 g in dextrose (iso-osmotic) 50 mL (ZOSYN) 3.375 g INTRAVENOUS q 6 H - methadone 10 mg tab(s) (DOLOPHINE) 10 mg ORAL q 12 H - insulin NPH human 20 Units injection pen (intermediate acting) (NovoLIN N, HumuLIN N) 20 Units SUBCUTANEOUS BID - morphine 4 mg injection 4 mg INTRAVENOUS q 4 H PRN - insulin lispro 6 Units pen (rapid acting) (HumaLOG KWIKPEN) 6 Units SUBCUTANEOUS w MEALS - iv contrast (radiology procedure) INTRAVENOUS DIRECTED PRN - iv contrast (radiology procedure) INTRAVENOUS DIRECTED PRN - vancomycin iv piggyback 1.5 g in D5W 250 mL (VANCOCIN) 1.5 g INTRAVENOUS q 12 HR PHYSICAL EXAM: Vital signs: BP 134/82 Pulse 74 Temp 36.2 ?C (97.2 ?F) (Temporal) Resp 18 Ht 175.3 cm (5' 9) Wt 86 kg (189 lb 9.5 oz) SpO2 95% BMI 28.00 kg/m? Temp (24hrs), Av.6 ?C (97.9 ?F), Min:36.2 ?C (97.2 ?F), Max:36.9 ?C (98.4 ?F) GEN: Alert, pleasant, NAD HEENT: PERRL, moist oral mucosa, neck supple PULM: CTA bilateral, no rhonchi/wheezes. CV: RRR GI: soft, non distended, non tender, BSx4 : no chen, no CVAT EXT: left BKA incision with serous drainage, perincisional erythema and skin peeling. SKIN: no rash NEURO: no focal deficits, Alert and oriented x3 LINES: PIV sites clean Lab data: reviewed Recent Labs 07/22/19 1015 07/21/19 0423 07/20/19 1030 WBC -- 6.94 8.01 HB -- 9.0* 9.5* PLT -- 273 292 NA -- 137 131* K -- 4.2 4.3 CO2 -- 29 29 BUN -- 11 12 CREAT -- 0.53* 0.50* AST -- -- 16 ALT -- -- 9* TBILI -- -- 0.4 ALKPHOS -- -- 80 VANCORA 10.9 -- -- Microbiology data: reviewed Imaging data: reviewed [facility] Answering Service: [phone] July 22, 2019 2:59 PM Agree fully w above notes as documented by the RETAINING ROOM CUTTER. Donnell Garcia MD 07/22/2019 7:06 PM Normal [facility] PROGRESS HNO ID: [id number] Author: Marie Sahni Service: Hospital Medicine Author Type: Physician Type: Progress Notes Filed: 07/22/2019 9:01 AM Note Text: DEPARTMENT OF HOSPITAL MEDICINE PROGRESS NOTE SERVICE DATE: 07/21/2019 SERVICE TIME: 11:01 AM Hospital Medicine/Primary Attending: Marie Sahni MD NIGHT AND WEEKEND COVERAGE: After 7pm please page [phone] CHIEF COMPLAINT: Cellulitis, right BKA sight SUBJECTIVE: Patient has no complaint of left sided sharp chest pain in the anterior axillary line the lower rib cage. He's states that he gets slightly short of breath with this because he cannot take deep breath. Her cough or hemoptysis. Started after his falls. He does not feel it is related to trauma.. States the erythema in his right BKA site looks improved on current antibiotics. No fever or chills. Pain is under control in the right stump. OBJECTIVE: PHYSICAL EXAM: BP 134/82 Pulse 74 Temp (Src) 97.2 (Temporal) Resp 16 Ht 5' 9 (1.75m) Wt 189 lb 9.5 oz (86.0kg) SpO2 95% BMI 27.99 kg/(m2). O2 Therapy: Room Air General - AANDOx3, NAD, Calm CV - RRR S1 S2, No M/R/G RESP - CTA B/L No wheezes, ronchi, rales ABD - soft, NT, ND +BS EXT - no gross joint deformity, no clubbing, cyanosis, edema. Right stump shows about 4-5 inches of erythema on the distal end. There is mild to moderate swelling in this area. The incision is healing nicely. Drainage is bloody. MEDICATIONS: Current Facility-Administered Medications Medication Dose Route Frequency - acetaminophen 650 mg tab(s) (TYLENOL) 650 mg ORAL q 6 H PRN - pregabalin 100 mg cap(s) (LYRICA) 100 mg ORAL TID - lisinopril 10 mg tab(s) (ZESTRIL, PRINIVIL) 10 mg ORAL DAILY - nystatin 100,000 unit/gram crea (MYCOSTATIN) TOPICAL BID - DULoxetine 20 mg cap(s) (CYMBALTA) 20 mg ORAL DAILY - pantoprazole DR 40 mg tab(s) (PROTONIX) 40 mg ORAL DAILY - senna 17.2 mg tab(s) (SENOKOT) 17.2 mg ORAL BID - polyethylene glycol 3350 17 g packet (MIRALAX, GLYCOLAX) 17 g ORAL DAILY - magnesium hydroxide 400 mg/5 mL 30 mL (MOM) 30 mL ORAL q 12 H PRN - metoclopramide HCl 5 mg (REGLAN) 5 mg ORAL AC and HS - enoxaparin 40 mg injection (LOVENOX) 40 mg SUBCUTANEOUS DAILY - NaCl 0.9% 3-5 mL 3-5 mL INTRAVENOUS q 12 H - ondansetron 4 mg tab(s) (ZOFRAN) 4 mg ORAL q 6 H PRN Or - ondansetron (PF) 4 mg injection (ZOFRAN) 4 mg INTRAVENOUS q 6 H PRN - dextrose 40 % 15 g 15 g ORAL PRN Or - glucagon 1 mg injection (GLUCAGEN) 1 mg INTRAMUSCULAR PRN Or - dextrose 50 % 12.5 g injection 12.5 g INTRAVENOUS PRN - insulin lispro pen (rapid acting) (HumaLOG KWIKPEN) SUBCUTANEOUS w MEALS - vancomycin dosing and monitoring per pharmacy OTHER As Directed - piperacillin-tazobactam iv piggyback 3.375 g in dextrose (iso-osmotic) 50 mL (ZOSYN) 3.375 g INTRAVENOUS q 6 H - vancomycin iv piggyback 1.25 g in D5W 250 mL (VANCOCIN) 1.25 g INTRAVENOUS q 12 HR - methadone 10 mg tab(s) (DOLOPHINE) 10 mg ORAL q 12 H - insulin NPH human 20 Units injection pen (intermediate acting) (NovoLIN N, HumuLIN N) 20 Units SUBCUTANEOUS BID - morphine 4 mg injection 4 mg INTRAVENOUS q 4 H PRN - insulin lispro 6 Units pen (rapid acting) (HumaLOG KWIKPEN) 6 Units SUBCUTANEOUS w MEALS - iv contrast (radiology procedure) INTRAVENOUS DIRECTED PRN - iv contrast (radiology procedure) INTRAVENOUS DIRECTED PRN DATA: Diagnostic tests reviewed for today's visit: Assessment/Plan 1) Left lower extremity stump cellulitis that is purulent - IV Vancomycin pharmacy to dose - IV Zosyn 3.375mg Q6hrs started - Blood cultures negative so far -CT of the left lower leg is ordered to rule out an abscess. ? 2) History of left BKA from OM - Orthopedics evaluated patient in the ER and no current surgical needs ? 3) Type I DM uncontrolled at baseline with HbA1C 11.3 recently - Continue regimen of NPH 20 units in morning and night - Continue insulin lispro 8 units before meals - ISS - No need for endocrine consult currently, follows Dr. Del Real as OP ? 4) history of IVDA - stopped using 1 year ago ? 5) Tobacco abuse - Counseled on importance of quitting smoking especially with his recent BKA and having uncontrolled DM. ? 6) opioid abuse in past - Seen by pain management last admission is to continue his home regimen that was set: Tylenol 650mg Q6hrs as needed for fever and mild pain Methadone 10mg Q12hrs Lyrica 100mg TID ? 7) Constipation - Continue Senna S BID - Continue Miralax ? 8) Diabetic gastroparesis - Continue home Reglan and Protonix ? 9) HTN - Continue home lisinopril 10) Chest pain -We will start with a chest x-ray to see if he has any infiltrates. VTE Prophylaxis: Lovenox 40mg Sub Q Daily Disposition: Extended Care Facility Plan of care discussed with: Patient SIGNATURE: Marie Sahni MD PATIENT NAME: Tori Cantor DATE: July 21, 2019 TIME: 11:01 AM PAGER/CONTACT #: [phone] [facility] PROGRESS HNO ID: [id number] Author: Jayy Vogel Service: Orthopaedic Surgery Author Type: Physician Type: Progress Notes Filed: 07/22/2019 9:59 AM Note Text: ORTHOPAEDIC SURGERY DAILY PROGRESS NOTE ORTHO STAFF: Patient seen and examined. Agree with resident assessment and plan noted below. Left below knee amputation infection inspected. Some drainage from lateral incision where vinh removed, mildly decreased local erythema. Appreciate medicine and infectious disease recommendations; ideally would improve with dressing changes and antibiotics and glucose control. Any surgical incision to the left leg places him at greatly increased risk for above-knee amputation. Discussed with patient in detail, who expressed understanding. Jayy Vogel MD ASSESMENT: 44 y/o M s/p L BKA 06/24/19 with surgical site infection PLAN: -Pain Control -Management per primary -Abx per ID - Vanc -will c/s wound center for dressing change recommendations -f/u CT -d/c planning per primary pending CT results INTERVAL HPI: Patient monitored, no new events overnight. Patient states that they are comfortable. Minimal pain this am, No F/C OBJECTIVE: BP 134/82 Pulse 74 Temp 36.2 ?C (97.2 ?F) (Temporal) Resp 16 Ht 175.3 cm (5' 9) Wt 86 kg (189 lb 9.5 oz) SpO2 95% BMI 28.00 kg/m? Intake/Output Summary (Last 24 hours) 07/21 2300 - 07/22 0659 In: - Out: 700 [Urine:700] Exam: General: NAD Extremities: Left Lower Extremity: Previous BKA incision appears without erythema this am, skin WNL. Incision healing well aside from continued serosanguinous drainage laterally. No signficiant TTP over incision site. No palpable fluctuance or crepitus. Compartments of thigh are soft, compressible. Labs: Recent Labs 07/21/19 0423 07/20/19 1030 WBC 6.94 8.01 HB 9.0* 9.5* HCT 29.3* 30.8* PLT 273 292 NA 137 131* K 4.2 4.3 CHLOR 105 100 CO2 29 29 CREAT 0.53* 0.50* BUN 11 12 GLUC 199* 198* TPROT -- 8.2 ALB -- 2.7* CA 8.8 8.9 ALKPHOS -- 80 TBILI -- 0.4 AST -- 16 ALT -- 9* Imaging: CT pending SIGNATURE: Tori Conway MD PATIENT NAME: Tori Cantor DATE: 07/22/19 TIME: 6:31 AM PAGER/CONTACT #: [phone] Normal [facility] Vancomycin,Randomon 07-22-19 20 INR Coag (Bld) [Relative time] 10.9 mg/L Normal [facility] Comment on above: Result Comment: Trou gh 10.0-20.0 mg/L Peak 18.0-40.0 mg/L Performed By: #### P 8 #### [facility] [address] [place], [place] [address] Basic Panelon 07-21-2019 Creatinine [Mass/Vol] 0.53 mg/dL Low 0.67-1.17 [facility] Comment on above: Performed By: #### P 8 #### [facility] [address] [place], [place] [address] Anion gap [Moles/Vol] 7 mmol/L Low 8-16 [facility] Comment on above: Performed By: #### P 8 #### [facility] [address] [place], [place] [address] Calcium [Mass/Vol] 8.8 mg/dL Normal 8.5-10.1 [facility] Comment on above: Performed By: #### P 8 #### [facility] [address] [place], [place] [address] CO2 [Moles/Vol] 29 mmol/L Normal 21-32 [facility] Comment on above: Performed By: #### P 8 #### [facility] [address] [place], [place] [address] Glucose [Mass/Vol] 199 mg/dL High 70-99 [facility] Comment on above: Performed By: #### P 8 #### [facility] [address] [place], [place] [address] Urea nitrogen [Mass/Vol] 11 mg/dL Normal 7-18 [facility] Comment on above: Performed By: #### P 8 #### [facility] [address] [place], [place] [address] Chloride [Moles/Vol] 105 mmol/L Normal 98-107 [facility] Comment on above: Performed By: #### P 8 #### [facility] [address] [place], [place] [address] Potassium [Moles/Vol] 4.2 mmol/L Normal 3.5-5.1 [facility] Comment on above: Performed By: #### P 8 #### [facility] [address] [place], [place] [address] Sodium [Moles/Vol] 137 mmol/L Normal 136-145 [facility] Comment on above: Performed By: #### P 8 #### [facility] [address] [place] [address] CASE MGT INIT Porfirio 2019 CASE MGT INIT DAMIEN HNO ID: [id number] Author: Muna (Rn) MATT Cordero Service: Care Management Author Type: Registered Nurse Type: Care Mgt Initial Assessment Filed: 07/21/2019 4:30 PM Note Text: CARE MANAGEMENT: ASSESSMENT AND DISCHARGE PLAN SERVICE DATE: 07/21/2019 SERVICE TIME: 1618 PRIMARY CARE PHYSICIAN: Elizabeth Nelson DO ADMISSION STATUS: Inpatient Needs Prior to Discharge: Facility or Agency Choices;Insurance Authorization;Discharge Transportation MEDICAL: Patient/Corporate Investigator Stated Goals: To have reduction in symptoms Health Insurance: UHC MEDICARE ADVANTAGE [facility] Issues Impacting Discharge Plan: cellulitis stump Last Discharge Date: 06/28/19 Is this Within the Past 30 days? No Advance Directive: Current Advance Directive: None Lens Blocker Attempted to Assist with AD Completion: Yes Action: Education Provided;Patient Unwilling Health Literacy: 1. How often do you need to have someone help you when you read instructions, pamphlets, or other written material from your doctor or pharmacy? Never - 1 2. How confident are you filling out medical forms by yourself? Extremely - 1 If Patient scores > 3 on either question, the following interventions were put into place: Patient did not score > 3 FUNCTIONAL AND COGNITIVE/BEHAVIORAL PRIOR TO ADMISSION: Baseline Mental Status: Alert AND Oriented, Person, Place , Time and Situation Functional Status: Needs Assistance Does Patient Currently Receive Any Community Services or Home Care? None Equipment Prior to Admission: None Has the Patient Been in a Halfway Facility in the Past 30 days? Yes. Where [facility] Dates[facility] SOCIAL: Living Arrangement: Home prior to L BKA in June Lives With: Alone Financial Resources: N/A Primary Contact: Extended Emergency Contact Information Primary Emergency Contact: JENNIFERJOSÉ MIGUELDARWIN Relation: Father Secondary Emergency Contact: Ingris Flowers Relation: Relative Supportive: Yes Other Important Patient Contacts: None Caregiver Assessment: Caregiver is ready, willing and able to meet the patient's needs as recommended by the inter-professional team? No Caregiver Needed Patient's transition needs and plan for meeting these needs: return to senior living facility Does the patient have an acute stroke diagnosis, or has the patient had a stroke during this admission? No Medication Adherence: I am convinced of the importance of my prescription medication: Agree completely - 0 I worry that my prescription medication will do more harm than good to me Disagree completely - 0 I feel financially burdened by my [id number] expenses for my prescription medication: Disagree completely - 0 Patient is categorized as low risk < 2 Are you interested in bedside delivery of your medications? No Is the Patient Psychosocially Complex? No ASSESSMENT AND PLAN: Medical Needs: 2 or more chronic diseases Psychosocial Needs: None FREEDOM OF CHOICE EXPLAINED: No - return to snf POTENTIAL TRANSITION PLANS Halfway Facility/Intermediate Care Facility Met with patient, receiving skilled care at [facility] and plan is to return there when ready for transfer, infectious disease consulted for stump infection SIGNATURE: Muna Cordero RN PATIENT NAME: Tori Cantor DATE: July 21, 2019 TIME: 4:18 PM PAGER/CONTACT #: [phone] [facility] CONSULTon 07-21-2019 CONSULT HNO ID: [id number] Author: Donnell Garcia Service: Infectious Disease Author Type: Physician Type: Consults Filed: 07/21/2019 8:36 PM Note Text: CONSULT: INFECTIOUS DISEASE SERVICE SERVICE DATE: 07/21/2019 SERVICE TIME: 2:52 PM REASON FOR CONSULT: Stump Infection REQUESTING PHYSICIAN: PRIMARY CARE PHYSICIAN: DO Jose Grant Mr. Cantor is a 44 year old male who presents for concern for left BKA stump/ incisional infection. He is well known to our service for recent admission for left distal and tibial osteomyelitis due to MSSA, left ankle fracture/ dislocation s/p ORIF, initially treated with IV ATB which failed and he subsequently underwent a left BKA 06/24/2019. Following BKA he was treated with 7 day course of Keflex. He now presents with stump erythema, drainage from stump incision. No associated n/v/d/f/c. Per Orthopedics infection is superficial. Blood Cx sent, he was started on Vanc/ Zosyn. ID consulted for antimicrobial management. 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 - Pancreatitis 08/2014 - Tobacco abuse 05/27/2019 - Trimalleolar fracture of left ankle PAST SURGICAL HISTORY Procedure Laterality Date - IR VASCULAR ACCESS TEAM PICC INSERTION RADIO 06/17/2019 - NONE FAMILY HISTORY Problem Relation Age of Onset - Hypertension Mother - Diabetes Mother - Stroke Mother - Heart Mother CHF - Cataract Mother - Hypertension Father - COPD Father - Emphysema Father Social History Tobacco Use - Smoking status: Current Every Day Smoker Packs/day: 1.00 Types: Cigarettes - Smokeless tobacco: Never Used Substance Use Topics - Alcohol use: Yes Comment: socially - Drug use: Never Types: Cocaine, Amphetamines Comment: hist of cocaine and marajuana use, fentanyl doxycycline (VIBRA-TABS) 100 mg tablet, Take 100 mg by mouth twice daily. For 4 weeks. Course initiated on 07/19/2019., Disp: , Rfl: bisacodyl (DULCOLAX) 10 mg supp, 10 mg by RECTAL route once daily as needed for Constipation. If no results from MOM., Disp: , Rfl: methadone (DOLOPHINE) 10 mg tablet, Take 10 mg by mouth every 12 hours., Disp: , Rfl: polyethylene glycol 3350 (MIRALAX, GLYCOLAX) 17 gram packet, Take 17 g by mouth once daily. With 4 ounces of water., Disp: , Rfl: insulin regular human (NOVOLIN R,HUMULIN R) 100 unit/mL injection, Inject 20 Units subcutaneously twice daily before meals., Disp: , Rfl: nystatin (MYCOSTATIN) cream, Apply 1 application to scrotum topically two times daily for redness., Disp: , Rfl: metoclopramide HCl (REGLAN) 5 mg tablet, Take 5 mg by mouth before meals and at bedtime., Disp: , Rfl: insulin lispro (HUMALOG KWIKPEN) 100 unit/mL inpn, Inject 8 Units subcutaneously w MEALS., Disp: , Rfl: DULoxetine (CYMBALTA) 20 mg capsule, Take 1 capsule by mouth once daily., Disp: , Rfl: acetaminophen (TYLENOL) 325 mg tablet, Take 650 mg by mouth every 6 hours as needed for Pain or Fever. , Disp: , Rfl: bisacodyl EC (DULCOLAX, BISACODYL,) 5 mg EC tablet, Take 5 mg by mouth once daily as needed for Constipation., Disp: , Rfl: lisinopril (ZESTRIL, PRINIVIL) 10 mg tablet, Take 10 mg by mouth once daily., Disp: , Rfl: pregabalin (LYRICA) 100 mg capsule, Take 100 mg by mouth three times daily., Disp: , Rfl: magnesium hydroxide (MOM) 400 mg/5 mL suspension, Take 30 mL by mouth every 12 hours as needed for Constipation. , Disp: , Rfl: ondansetron (ZOFRAN) 4 mg tablet, Take 4 mg by mouth every 6 hours as needed (nausea)., Disp: , Rfl: senna (SENNA) 8.6 mg tab, Take 17.2 mg by mouth twice daily., Disp: , Rfl: ibuprofen (MOTRIN) 400 mg tablet, Take 400 mg by mouth every 6 hours as needed (general discomfort). , Disp: , Rfl: enoxaparin (LOVENOX) 40 mg/0.4 mL syrg, Inject 40 mg subcutaneously every 24 hours. Prophylactic for prevention of DVT. , Disp: , Rfl: pantoprazole DR (PROTONIX) 40 mg tablet, Take 40 mg by mouth once daily. , Disp: , Rfl: , 05/26/2019 Current Facility-Administered Medications Medication Dose Route Frequency - acetaminophen 650 mg tab(s) (TYLENOL) 650 mg ORAL q 6 H PRN - pregabalin 100 mg cap(s) (LYRICA) 100 mg ORAL TID - lisinopril 10 mg tab(s) (ZESTRIL, PRINIVIL) 10 mg ORAL DAILY - insulin lispro 8 Units pen (rapid acting) (HumaLOG KWIKPEN) 8 Units SUBCUTANEOUS w MEALS - nystatin 100,000 unit/gram crea (MYCOSTATIN) TOPICAL BID - DULoxetine 20 mg cap(s) (CYMBALTA) 20 mg ORAL DAILY - pantoprazole DR 40 mg tab(s) (PROTONIX) 40 mg ORAL DAILY - senna 17.2 mg tab(s) (SENOKOT) 17.2 mg ORAL BID - polyethylene glycol 3350 17 g packet (MIRALAX, GLYCOLAX) 17 g ORAL DAILY - magnesium hydroxide 400 mg/5 mL 30 mL (MOM) 30 mL ORAL q 12 H PRN - metoclopramide HCl 5 mg (REGLAN) 5 mg ORAL AC and HS - enoxaparin 40 mg injection (LOVENOX) 40 mg SUBCUTANEOUS DAILY - NaCl 0.9% 3-5 mL 3-5 mL INTRAVENOUS q 12 H - ondansetron 4 mg tab(s) (ZOFRAN) 4 mg ORAL q 6 H PRN Or - ondansetron (PF) 4 mg injection (ZOFRAN) 4 mg INTRAVENOUS q 6 H PRN - dextrose 40 % 15 g 15 g ORAL PRN Or - glucagon 1 mg injection (GLUCAGEN) 1 mg INTRAMUSCULAR PRN Or - dextrose 50 % 12.5 g injection 12.5 g INTRAVENOUS PRN - insulin lispro pen (rapid acting) (HumaLOG KWIKPEN) SUBCUTANEOUS w MEALS - vancomycin dosing and monitoring per pharmacy OTHER As Directed - piperacillin-tazobactam iv piggyback 3.375 g in dextrose (iso-osmotic) 50 mL (ZOSYN) 3.375 g INTRAVENOUS q 6 H - vancomycin iv piggyback 1.25 g in D5W 250 mL (VANCOCIN) 1.25 g INTRAVENOUS q 12 HR - methadone 10 mg tab(s) (DOLOPHINE) 10 mg ORAL q 12 H - insulin NPH human 20 Units injection pen (intermediate acting) (NovoLIN N, HumuLIN N) 20 Units SUBCUTANEOUS BID Allergies As of Date: 07/20/2019 (No Known Allergies) Fully Assessed 07/20/2019 COMPLETE REVIEW OF SYSTEMS: 10 point ROS complete, negative unless otherwise stated in HPI Objective PHYSICAL EXAM: Temp (24hrs), Av.9 ?C (98.4 ?F), Min:36.6 ?C (97.9 ?F), Max:37.3 ?C (99.1 ?F) GEN: Alert, pleasant, NAD HEENT: PERRL, moist oral mucosa, neck supple PULM: CTA bilateral, no rhonchi/wheezes. CV: RRR GI: soft, non distended, non tender, BSx4 : no chen, no CVAT EXT: left BKA incision with serous drainage, perincisional erythema and skin peeling. SKIN: no rash NEURO: no focal deficits, Alert and oriented x3 LINES: PIV sites clean Body mass index is 28 kg/m?. DATA: Diagnostic tests reviewed for today's visit: Recent Labs 07/21/19 0423 07/20/19 1030 WBC 6.94 8.01 HB 9.0* 9.5* PLT 273 292 NA 137 131* K 4.2 4.3 CO2 29 29 BUN 11 12 CREAT 0.53* 0.50* AST -- 16 ALT -- 9* TBILI -- 0.4 ALKPHOS -- 80 MICROBIOLOGY: 07/20/19 Blood Cx pending IMAGES: reviewed Impression/Recommendation s 1. Left BKA Incisional Infection - appears superficial - s/p BKA 06/24/19 - previous cultures with MSSA 2. Type I DM 3. High Grade MSSA Bacteremia cleared 06/12, negative JOANNA - RX'd 4. Anemia RECOMMENDATIONS: Continue Vancomycin DC Zosyn Check Wound Cx Follow Clinically CT scan w contrast of the left BKA stump to assess for abscess SIGNATURE: Cielo Ramirez APRN.RETAINING ROOM CUTTER PATIENT NAME: Tori Cantor DATE: July 21, 2019 TIME: 2:52 PM PAGER: [phone] Seen and examined independently. Agree fully w above notes as documented by the RETAINING ROOM CUTTER. Donnell Garcia MD 07/21/2019 8:35 PM Normal [facility] CONSULT PROGon 07-21-2019 CONSULT PROG HNO ID: [id number] Author: Emelia Rousseau (Pharmacist) Service: Pharmacy Author Type: Pharmacist Type: Consult Progress Note Filed: 07/21/2019 12:43 PM Note Text: PHARMACY VANCOMYCIN DOSING NOTE Patient Name: Tori Cantor Admission Date: 07/20/2019 Date of Consult: 07/21/2019 Time of Consult: 12:41 PM Indication: Skin/Soft tissue infection Goal Range: 10-20 mcg/mL RECOMMENDATIONS/PLAN: Pharmacy consulted for vancomycin dosing for Tori Cantor, a 44 year old, male who is being treated with vancomycin for left lower extremity stump cellulitis that is purulent. 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 1. Patient is currently ordered Vancomycin 1.25 g IV q12h. Today is day 2 of therapy. 2. No vancomycin level has been drawn for this dosing regimen. 3. The present dose of vancomycin is the recommended dosage for this patient at this time. Continue therapy as prescribed. 4. The next vancomycin level has been ordered for 07/22/19 at 1100 (Completed) - Level prior to 5th dose due to severity of infection - Recent below knee amputation due to osteomyelitis, incision site infected We will follow patient renal function, vancomycin levels and doses with you during the course of therapy. Additional recommendations will appear in follow up notes. If [place] have any [place] [phone]. Age: [age] year old Allergies: ALLERGIES No Known Allergies Last 3 Encounter Wt Readings: Date: Wt: 07/20/2019 86 kg (189 lb 9.5 oz) 07/14/2019 70.3 kg (155 lb) 06/21/2019 70.3 kg (155 lb) Last 1 Encounter Ht Readings: Date: Ht: 07/20/2019 175.3 cm (5' 9) CrCl: 191.2 mL/min Temp (24hrs), Av.9 ?C (98.4 ?F), Min:36.6 ?C (97.9 ?F), Max:37.3 ?C (99.1 ?F) - Current Temp: 36.6 ?C (97.9 ?F) Labs BUN (mg/dL) Date Value 07/21/2019 11 07/20/2019 12 06/26/2019 11 Creatinine (mg/dL) Date Value 07/21/2019 0.53 (L) 07/20/2019 0.50 (L) 06/26/2019 0.55 (L) WBC (thou/cmm) Date Value 07/21/2019 6.94 07/20/2019 8.01 06/24/2019 7.31 Vancomycin Levels: Vancomycin,Random (mg/L) Date/Time Value 06/11/2019 1535 16.7 Emelia Rousseau, Pharmacist Normal [facility] Cult and Smr FLIP and AERon 0 07-21-2019 Cult and Smr FLIP and AER Test performed at [facility] No anaerobic organisms cultured Few Gram positive cocci Rare Polymorphonuclear leukocytes Rare Mononuclear cells Many RBCs ORGANISM: *Staphylococcus aureus (ID: 1) Few Oxacillin-susceptible staphylococci are susceptible to other penicillinase-stable penicillins, beta-lactam/beta-lactamas e inhibitor combinations, anti-staphylococcal cephems and carbapenems. Normal [facility] Comment on above: Performed By: #### P 8 #### [facility] [address] [place] [address] Hemogramon 07-21-2019 Erythrocyte distribution width (RBC) [Ratio] 13.8 % Normal 11.6-14.4 [facility] Comment on above: Performed By: #### P 8 #### [facility] [address] [place] [address] Hematocrit (Bld) [Volume fraction] 29.3 % Low 40.1-51.0 [facility] Comment on above: Performed By: #### P 8 #### [facility] [address] [place] [address] Hemoglobin (Bld) [Mass/Vol] 9.0 g/dL Low 13.7-17.5 [facility] Comment on above: Performed By: #### P 8 #### [facility] [address] [place] [address] MCH (RBC) [Entitic mass] 25.9 pg Normal 25.7-32.2 [facility] Comment on above: Performed By: #### P 8 #### [facility] [address] [place] [address] MCHC (RBC) [Mass/Vol] 30.7 % Low 32.3-36.5 [facility] Comment on above: Performed By: #### P 8 #### [facility] [address] [place] [address] MCV (RBC) [Entitic vol] 84.4 fL Normal 83.2-95.6 [facility] Comment on above: Performed By: #### P 8 #### [facility] [address] [place] [address] Platelet mean volume (Bld) [Entitic vol] 11.2 fL Normal 8.7-12.0 [facility] Comment on above: Performed By: #### P 8 #### [facility] [address] [place] [id number] Platelets (Bld) [#/Vol] 273 thou/cmm Normal 141-365 [facility] Comment on above: Performed By: #### P 8 #### [facility] [address] [place], [place] [address] RBC (Bld) [#/Vol] 3.47 mil/cmm Low 4.63-6.08 [facility] Comment on above: Performed By: #### P 8 #### [facility] [address] [place], [place] [address] RDW SD 42.8 fl Normal 36.1-45.8 [facility] Comment on above: Performed By: #### P 8 #### [facility] [address] [place], [place] [address] WBC (Bld) [#/Vol] 6.94 thou/cmm Normal 4.23-9.07 [facility] Comment on above: Performed By: #### P 8 #### [facility] [address] [place], [place] [address] NURSING PROGon 07-21-2019 NURSING PROG HNO ID: [id number] Author: Kaveh (Rn) MATT Pickard Service: Nursing Author Type: Registered Nurse Type: Nursing Progress Note Filed: 07/21/2019 5:14 PM Note Text: Nursing Progress Note Patient Name: Tori Cantor [address]: [id number] 1 Daily Note: Dr. Sahni notified of Pt refusal to take 8 units schedule log plus 2 units SSI for BS 194 and Pt stating he would only take 6 units because he does not want to drop his blood sugar too low. Per Dr. Sahni is ok for the Pt to take less and we'll watch his blood sugar level. [address] Sahni that Pt took only 6 units log for lunch instead of ordered 8 units plus 2 units SSI and that Pt BS is now 96 and he is refusing any dinner insulin coverage. Orders received to change scheduled insulin with meals to 6 units from 8 units of humalog. Notified Dr. Sahni of Pt reporting abdominal cramping on L side and that Pt states he has had it since admission and that he forgot to mention it to nursing and Dr. Sahni today. No further orders received. This note was completed by: Kaveh Pickard RN [facility] PROGRESSon 07-21-2019 PROGRESS HNO ID: [id number] Author: Marie Sahni Service: Hospital Medicine Author Type: Physician Type: Progress Notes Filed: 07/21/2019 11:05 AM Note Text: DEPARTMENT OF HOSPITAL MEDICINE PROGRESS NOTE SERVICE DATE: 07/21/2019 SERVICE TIME: 11:01 AM Hospital Medicine/Primary Attending: Marie Sahni MD NIGHT AND WEEKEND COVERAGE: After 7pm please page [phone] CHIEF COMPLAINT: Cellulitis, right BKA sight SUBJECTIVE: Patient has no new complaints. States the erythema in his right BKA site looks improved on current antibiotics. No fever or chills. Pain is under control and the right stump. OBJECTIVE: PHYSICAL EXAM: BP 118/79 Pulse 80 Temp (Src) 97.9 (Oral) Resp 17 Ht 5' 9 (1.75m) Wt 189 lb 9.5 oz (86.0kg) SpO2 95% BMI 27.99 kg/(m2). O2 Therapy: Room Air General - AANDOx3, NAD, Calm CV - RRR S1 S2, No M/R/G RESP - CTA B/L No wheezes, ronchi, rales ABD - soft, NT, ND +BS EXT - no gross joint deformity, no clubbing, cyanosis, edema. Right stump shows about 4-5 inches of erythema on the distal end. There is mild to moderate swelling in this area. The incision is healing nicely with only superficial open areas on the lateral half of the incision. Drainage is bloody. MEDICATIONS: Current Facility-Administered Medications Medication Dose Route Frequency - acetaminophen 650 mg tab(s) (TYLENOL) 650 mg ORAL q 6 H PRN - pregabalin 100 mg cap(s) (LYRICA) 100 mg ORAL TID - lisinopril 10 mg tab(s) (ZESTRIL, PRINIVIL) 10 mg ORAL DAILY - insulin lispro 8 Units pen (rapid acting) (HumaLOG KWIKPEN) 8 Units SUBCUTANEOUS w MEALS - nystatin 100,000 unit/gram crea (MYCOSTATIN) TOPICAL BID - DULoxetine 20 mg cap(s) (CYMBALTA) 20 mg ORAL DAILY - pantoprazole DR 40 mg tab(s) (PROTONIX) 40 mg ORAL DAILY - senna 17.2 mg tab(s) (SENOKOT) 17.2 mg ORAL BID - polyethylene glycol 3350 17 g packet (MIRALAX, GLYCOLAX) 17 g ORAL DAILY - magnesium hydroxide 400 mg/5 mL 30 mL (MOM) 30 mL ORAL q 12 H PRN - metoclopramide HCl 5 mg (REGLAN) 5 mg ORAL AC and HS - enoxaparin 40 mg injection (LOVENOX) 40 mg SUBCUTANEOUS DAILY - NaCl 0.9% 3-5 mL 3-5 mL INTRAVENOUS q 12 H - ondansetron 4 mg tab(s) (ZOFRAN) 4 mg ORAL q 6 H PRN Or - ondansetron (PF) 4 mg injection (ZOFRAN) 4 mg INTRAVENOUS q 6 H PRN - dextrose 40 % 15 g 15 g ORAL PRN Or - glucagon 1 mg injection (GLUCAGEN) 1 mg INTRAMUSCULAR PRN Or - dextrose 50 % 12.5 g injection 12.5 g INTRAVENOUS PRN - insulin lispro pen (rapid acting) (HumaLOG KWIKPEN) SUBCUTANEOUS w MEALS - vancomycin dosing and monitoring per pharmacy OTHER As Directed - piperacillin-tazobactam iv piggyback 3.375 g in dextrose (iso-osmotic) 50 mL (ZOSYN) 3.375 g INTRAVENOUS q 6 H - vancomycin iv piggyback 1.25 g in D5W 250 mL (VANCOCIN) 1.25 g INTRAVENOUS q 12 HR - methadone 10 mg tab(s) (DOLOPHINE) 10 mg ORAL q 12 H - insulin NPH human 20 Units injection pen (intermediate acting) (NovoLIN N, HumuLIN N) 20 Units SUBCUTANEOUS BID DATA: Diagnostic tests reviewed for today's visit: CBC: Recent Labs 07/21/19 0423 WBC 6.94 RBC 3.47* HB 9.0* HCT 29.3* PLT 273 MCV 84.4 MCH 25.9 MPV 11.2 RDW 13.8 CMP: Recent Labs 07/21/19 0423 NA 137 K 4.2 CHLOR 105 CO2 29 BUN 11 CREAT 0.53* GLUC 199* CA 8.8 ANION 7* Assessment/Plan 1) Left lower extremity stump cellulitis that is purulent - IV Vancomycin pharmacy to dose - IV Zosyn 3.375mg Q6hrs started - Blood cultures negative so far ? 2) History of left BKA from [facility] - Orthopedics evaluated patient in the ER and no current surgical needs ? 3) Type I DM uncontrolled at baseline with HbA1C 11.3 recently - Continue regimen of NPH 20 units in morning and night - Continue insulin lispro 8 units before meals - ISS - No need for endocrine consult currently, follows Dr. Del Real as OP ? 4) history of IVDA - stopped using 1 year ago ? 5) Tobacco abuse - Counseled on importance of quitting smoking especially with his recent BKA and having uncontrolled DM. ? 6) opioid abuse in past - Seen by pain management last admission is to continue his home regimen that was set: Tylenol 650mg Q6hrs as needed for fever and mild pain Methadone 10mg Q12hrs Lyrica 100mg TID ? 7) Constipation - Continue Senna S BID - Continue Miralax ? 8) Diabetic gastroparesis - Continue home Reglan and Protonix ? 9) HTN - Continue home lisinopril VTE Prophylaxis: Lovenox 40mg Sub Q Daily Disposition: Extended Care Facility Plan of care discussed with: Patient SIGNATURE: Marie Sahni MD PATIENT NAME: Tori Cantor DATE: July 21, 2019 TIME: 11:01 AM PAGER/CONTACT #: [phone] [facility] CONSULTon 07-20-2019 CONSULT HNO ID: [id number] Author: Jayy Vogel Service: Orthopaedic Surgery Author Type: Physician Type: Consults Filed: 07/21/2019 7:35 AM Note Text: ORTHOPAEDIC SURGERY CONSULT Pt: TORI CANTOR Date of consultation: 07/20/2019 Consulting Physician: Dr. Vogel Reason for consultation: concern for infection of previous BKA of left leg ORTHO STAFF: History and physical examination reviewed. Orthopaedic consultation reviewed. Well known patient seen in office 07/14/2019; at that time vinh were removed with no evidence of infection. He indicates he has been performing daily washes of the extremity, but not the facility staff. He is very high risk for rapid progression of infection based on prior necrosis and osteomyelitis of the left lower extremity resulting in sepsis without any surgical intervention when ankle fracture was initially managed conservatively. Poor glucose control and frequently denies insulin administration. Agree with orthopaedic resident assessment and plan. High risk for revision to above knee amputation should infection progress similar to previous event. Appreciate Medicine involvement for antibiotic recommendations and BS control. Jayy Vogel MD HPI: 44 year old male presenting today with wound drainage from the previous left BKA was performed by Dr. Vogel on 06/24/2019. Patient had an history of an open fracture that progressed to osteomyelitis resulting in a BKA. Over the last few days, patient reports that his incision site has become more red, warm and painful and he is started to notice some yellow drainage on his stump dressing. the physician at his rehabilitation facility started him on oral doxycycline for this yesterday. He was then seen by a different physician this morning who thought his incision site looked bad enough to come to the emergency department for possible admission for IV antibiotics. Patient denies any fevers or chills. Denies further complaints. 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 - Pancreatitis 08/2014 - Tobacco abuse 05/27/2019 - Trimalleolar fracture of left ankle PAST SURGICAL HISTORY Procedure Laterality Date - IR VASCULAR ACCESS TEAM PICC INSERTION RADIO 06/17/2019 - NONE Allergies: Patient has no known allergies. No current facility-administered medications for this encounter. Current Outpatient Medications Medication Sig - doxycycline (VIBRA-TABS) 100 mg tablet Take 100 mg by mouth twice daily. For 4 weeks. Course initiated on 07/19/2019. - bisacodyl (DULCOLAX) 10 mg supp 10 mg by RECTAL route once daily as needed for Constipation. If no results from MOM. - methadone (DOLOPHINE) 10 mg tablet Take 10 mg by mouth every 12 hours. - polyethylene glycol 3350 (MIRALAX, GLYCOLAX) 17 gram packet Take 17 g by mouth once daily. With 4 ounces of water. - insulin regular human (NOVOLIN R,HUMULIN R) 100 unit/mL injection Inject 20 Units subcutaneously twice daily before meals. - nystatin (MYCOSTATIN) cream Apply 1 application to scrotum topically two times daily for redness. - metoclopramide HCl (REGLAN) 5 mg tablet Take 5 mg by mouth before meals and at bedtime. - insulin lispro (HUMALOG KWIKPEN) 100 unit/mL inpn Inject 8 Units subcutaneously w MEALS. - DULoxetine (CYMBALTA) 20 mg capsule Take 1 capsule by mouth once daily. - acetaminophen (TYLENOL) 325 mg tablet Take 650 mg by mouth every 6 hours as needed for Pain or Fever. - bisacodyl EC (DULCOLAX, BISACODYL,) 5 mg EC tablet Take 5 mg by mouth once daily as needed for Constipation. - lisinopril (ZESTRIL, PRINIVIL) 10 mg tablet Take 10 mg by mouth once daily. - pregabalin (LYRICA) 100 mg capsule Take 100 mg by mouth three times daily. - magnesium hydroxide (MOM) 400 mg/5 mL suspension Take 30 mL by mouth every 12 hours as needed for Constipation. - ondansetron (ZOFRAN) 4 mg tablet Take 4 mg by mouth every 6 hours as needed (nausea). - senna (SENNA) 8.6 mg tab Take 17.2 mg by mouth twice daily. - ibuprofen (MOTRIN) 400 mg tablet Take 400 mg by mouth every 6 hours as needed (general discomfort). - enoxaparin (LOVENOX) 40 mg/0.4 mL syrg Inject 40 mg subcutaneously every 24 hours. Prophylactic for prevention of DVT. - pantoprazole DR (PROTONIX) 40 mg tablet Take 40 mg by mouth once daily. FH: Non-contributory. Negative for any bleeding or clotting disorders. Social Hx: Patient currently stays at a rehabilitation facility. Ambulates with a Rollator walker currently ROS: 10 pt ROS neg except in HPI O: Vitals: BP 138/86 Pulse 76 Temp 37.1 ?C (98.8 ?F) (Oral) Resp 14 Ht 175.3 cm (5' 9) Wt 83.9 kg (185 lb) SpO2 98% BMI 27.32 kg/m? Labs: Recent Labs 07/20/19 1030 NA 131* K 4.3 CHLOR 100 CO2 29 BUN 12 CREAT 0.50* GLUC 198* ANION 6* CA 8.9 ALB 2.7* AST 16 ALT 9* ALKPHOS 80 TBILI 0.4 WBC 8.01 HB 9.5* HCT 30.8* PLT 292 Physical exam: General: AANDO x 3; NAD. Cooperative throughout entire interview Extremities: evaluation of left lower extremity - previous BKA noted with drainage noted around the lateral aspect of the BKA incision site. There is erythema and very minimal expressible drainage from one particular part of the incision but there is no overt fluctuance or crepitus noted. very minimally TTP over incision site. Compartments of thigh are soft, compressible. Imaging: none A/P: 44 year old male with concern surgical site infection of a previous left lower extremity BKA Plan: - Orthopedic intervention: No plans for further orthopedic surgical intervention necessary at this time. the patient likely has a local superficial infection of the BKA surgical site with low concern for deeper infection/abscess. This is non-surgical and can likely just be treated with oral antibiotics. If patient is admitted for IV antibiotics, we will monitor him while he is here - Abx: Per ED/primary team - Case discussed with Dr. Vogel - Follow up with Dr. Vogel in 7-10 days Anthony Hill MD 3:25 PM July 20, 2019 Normal [facility] Comprehensive Panelon 2019 ALP [Catalytic activity/Vol] 80 U/L Normal 45-117 [facility] Comment on above: Performed By: #### P 8 #### [facility] [address] [place], [place] [address] Bilirubin [Mass/Vol] 0.4 mg/dL Normal 0.2-1.0 [facility] Comment on above: Performed By: #### P 8 #### [facility] [address] [place], [place] [address] Protein [Mass/Vol] 8.2 g/dL Normal 6.4-8.2 [facility] Comment on above: Performed By: #### P 8 #### [facility] [address] [place], [place] [address] ALT [Catalytic activity/Vol] 9 U/L Low 12-78 [facility] Comment on above: Performed By: #### P 8 #### [facility] [address] [place], [place] [address] AST [Catalytic activity/Vol] 16 U/L Normal 15-37 [facility] Comment on above: Performed By: #### P 8 #### [facility] [address] [place], [place] [address] Creatinine [Mass/Vol] 0.50 mg/dL Low 0.67-1.17 [facility] Comment on above: Performed By: #### P 8 #### [facility] [address] [place], [place] [address] Albumin [Mass/Vol] 2.7 g/dL Low 3.4-5.0 [facility] Comment on above: Performed By: #### P 8 #### [facility] [address] [place], [place] [address] Anion gap [Moles/Vol] 6 mmol/L Low 8-16 [facility] Comment on above: Performed By: #### P 8 #### [facility] [address] [place], [place] [address] Calcium [Mass/Vol] 8.9 mg/dL Normal 8.5-10.1 [facility] Comment on above: Performed By: #### P 8 #### [facility] [address] [place], [place] [address] CO2 [Moles/Vol] 29 mmol/L Normal 21-32 [facility] Comment on above: Performed By: #### P 8 #### [facility] [address] [place], [place] [address] Glucose [Mass/Vol] 198 mg/dL High 70-99 [facility] Comment on above: Performed By: #### P 8 #### [facility] [address] [place], [place] [address] Urea nitrogen [Mass/Vol] 12 mg/dL Normal 7-18 [facility] Comment on above: Performed By: #### P 8 #### [facility] [address] [place], [place] [address] Chloride [Moles/Vol] 100 mmol/L Normal 98-107 [facility] Comment on above: Performed By: #### P 8 #### [facility] [address] [place], [place] [address] Potassium [Moles/Vol] 4.3 mmol/L Normal 3.5-5.1 [facility] Comment on above: Performed By: #### P 8 #### [facility] [address] [place], [place] [address] Sodium [Moles/Vol] 131 mmol/L Low 136-145 [facility] Comment on above: Performed By: #### P 8 #### [facility] [address] [place], [place] [address] Cult Bloodon 07-20-2019 Cult Blood Test performed at [facility] No growth Normal [facility] Comment on above: Performed By: #### P 8 #### [facility] [address] [place], [place] [address] ED NOTEon 07-20-2019 ED NOTE HNO ID: [id number] Author: Marie AaronRn) MATT Gan Service: Emergency Medicine Author Type: Registered Nurse Type: ED Notes Filed: 07/20/2019 3:06 PM Note Text: Blood cultures drawn with initial IV start sent to lab. [facility] ED NOTE HNO ID: [id number] Author: Marie AaronRn) MATT Gan Service: Emergency Medicine Author Type: Registered Nurse Type: ED Notes Filed: 07/20/2019 2:25 PM Note Text: Entry in error - wrong patient. [facility] ED NOTE HNO ID: [id number] Author: Marie Hogan) MATT Gan Service: Emergency Medicine Author Type: Registered Nurse Type: ED Notes Filed: 07/20/2019 1:55 PM Note Text: Clean catch urine specimen obtained and sent. [facility] ED NOTE HNO ID: [id number] Author: Genoveva Charles RN Service: Emergency Medicine Author Type: Registered Nurse Type: ED Notes Filed: 07/20/2019 10:34 AM Note Text: Patient provided with urinal. Educated on need for urine specimen. Patient unable to urinate at this time. [facility] ED NOTE HNO ID: [id number] Author: Genoveva Charles RN Service: Emergency Medicine Author Type: Registered Nurse Type: ED Notes Filed: 07/20/2019 10:05 AM Note Text: Blood cultures drawn and sent. [facility] ED NOTE HNO ID: [id number] Author: Angela Armando RN Service: ? Author Type: Registered Nurse Type: ED Notes Filed: 07/20/2019 9:47 AM Note Text: Bed: 24-ED Expected date: 07/20/19 Expected time: Means of arrival: Comments: KELLY [facility] ED PROV NOTEon 07-20-2019 ED PROV NOTE HNO ID: [id number] Author: Bonnie Vela MD Service: Emergency Medicine Author Type: Physician Type: ED Provider Notes Filed: 07/22/2019 1:10 PM Note Text: HPI 44 yo M w pmhx of recent L BKA about 3 weeks ago who presents today w/ CC of wound infection. Has been on PO abx w/o improvement. No fevers. Is a diabetic. PE Gen:awake, alert CV:RRR Pulm:CTAB Abd:soft, NT S/p L BKA, wound erythematous w/ yellow drainage, +TTP DDX includes but not limited to:cellulitis, abscess, wound infection, nl wound healing ED course and plan Wound does appear infected. Pt has failed outpt abx. Ortho consulted. IV abx started. Pt admitted. Attending Note I evaluated the patient and personally participated in the zuñiga components. I agree with the resident's findings and plan as documented and have discussed the case and management of the patient's care with the resident. Signature: Bonnie Vela MD Date: 07/20/2019 Time: 10:17 AM Bonnie Vela MD 07/22/19 1310 [facility] ED PROV NOTE HNO ID: [id number] Author: Shiv Reis MD Service: Emergency Medicine Author Type: Resident Type: ED Provider Notes Filed: 07/23/2019 8:57 PM Note Text: ----- Attestation signed by Bonnie Vela MD at 07/25/2019 12:47 PM Attending Note I evaluated the patient and personally participated in the zuñiga components. I agree with the resident's findings and plan as documented and have discussed the case and management of the patient's care with the resident. Signature: Bonnie Vela MD Date: 07/25/2019 Time: 12:46 PM ----- ED Provider Note Patient Name: Tori Cantor SERVICE DATE: 07/20/19 History Patient presents with: Wound Infection: Patient arrives by EMS from [facility]. patient with left BKA about 3 weeks ago. patient sent in for potential post-op infection. Patient with redness, swelling, and drainage noted to the left stump. HPI The patient is a 44yo male with PMH significant for DM2, HTN, IVDU, left BKA who presents to the ED with concern wound infection. Patient received BKA approximately 2 weeks ago, currently residing at [facility]. Patient has had follow-up with wound care and surgery, endorses compliance with medications. Patient states the vinh were removed approximately 1 week ago. Since then, patient endorses warmth, redness, and purulence at the incisional site. Patient states he discussed this with practitioner at site, had follow up in 2 days. Was prescribed oral antibiotic but has not seen improvement. Denies sensory change, ROM change. Denies fever, LH, dizziness, headache, CP, SOB, nausea, vomiting, diarrhea, ABD pain. Denies injury or trauma. Does endorse still experiencing phantom pain in affected extremity. Has not experienced episode like this since surgery. Denies drug, EtOH use. PAST MEDICAL HISTORY Diagnosis Date - Diabetes ([facility]) - DKA (diabetic ketoacidosis) ([facility]) 08/2014 - Hyperglycemia 05/27/2019 - Hypertension - IVDU (intravenous drug user) 05/27/2019 - Lactose intolerance 07/30/2016 - Left ankle joint deformity 05/27/2019 - Pancreatitis 08/2014 - Tobacco abuse 05/27/2019 - Trimalleolar fracture of left ankle PAST SURGICAL HISTORY Procedure Laterality Date - IR VASCULAR ACCESS TEAM PICC INSERTION RADIO 06/17/2019 - NONE FAMILY HISTORY Problem Relation Age of Onset - Hypertension Mother - Diabetes Mother - Stroke Mother - Heart Mother CHF - Cataract Mother - Hypertension Father - COPD Father - Emphysema Father Social History Tobacco Use - Smoking status: Current Every Day Smoker Packs/day: 1.00 Types: Cigarettes - Smokeless tobacco: Never Used Substance and Sexual Activity - Alcohol use: Yes Comment: socially - Drug use: Never Types: Cocaine, Amphetamines Comment: hist of cocaine and marajuana use, fentanyl - Sexual activity: Not on file ALLERGIES No Known Allergies Review of Systems Constitutional: Negative for chills, diaphoresis, fatigue and fever. HENT: Negative for facial swelling, rhinorrhea and sore throat. Eyes: Negative for pain, discharge and redness. Respiratory: Negative for cough, shortness of breath and wheezing. Cardiovascular: Negative for chest pain, palpitations and leg swelling. Gastrointestinal: Negative for diarrhea, nausea and vomiting. Endocrine: Negative for polydipsia, polyphagia and polyuria. Genitourinary: Negative for dysuria, flank pain and hematuria. Musculoskeletal: Positive for arthralgias. Negative for back pain, myalgias and neck pain. Skin: Positive for color change and wound. Negative for pallor and rash. Neurological: Negative for dizziness, tremors, numbness and headaches. Physical Exam BP 113/73 Pulse 76 Temp (Src) 97.5 (Oral) Resp 16 Ht 5' 9 (1.75m) Wt 189 lb 9.5 oz (86.0kg) SpO2 100% BMI 27.99 kg/(m2). O2 Therapy: Room Air Physical Exam Vitals signs and nursing note reviewed. Constitutional: General: He is not in acute distress. Appearance: He is well-developed. He is not ill-appearing or toxic-appearing. HENT: Head: Normocephalic and atraumatic. Right Ear: External ear normal. Left Ear: External ear normal. Nose: Nose normal. Mouth/Throat: Mouth: Mucous membranes are dry. Eyes: Conjunctiva/sclera: Conjunctivae normal. Pupils: Pupils are equal, round, and reactive to light. Neck: Musculoskeletal: Normal range of motion and neck supple. No neck rigidity or muscular tenderness. Cardiovascular: Rate and Rhythm: Normal rate and regular rhythm. Heart sounds: Normal heart sounds. Pulmonary: Effort: Pulmonary effort is normal. No respiratory distress. Breath sounds: Normal breath sounds. No wheezing, rhonchi or rales. Abdominal: General: Bowel sounds are normal. There is no distension. Palpations: Abdomen is soft. Tenderness: There is no abdominal tenderness. There is no guarding or rebound. Musculoskeletal: Normal range of motion. General: Swelling, tenderness, deformity and signs of injury present. Skin: General: Skin is warm and dry. Capillary Refill: Capillary refill takes less than 2 seconds. Findings: Erythema present. Comments: Left BKA. Incision present at stump in an H like pattern. There is marked erythema and warmth at the side. At the lateral part of the incision, there is yellow-appearing purulent material. The medial part of the incision appears clean, dry, intact. No purulence. No crepitus noted. No focal areas of fluid/fluctuance. Tenderness to palpation. Good ROM. Neurological: General: No focal deficit present. Mental Status: He is alert and oriented to person, place, and time. Mental status is at baseline. Psychiatric: Behavior: Behavior normal. Thought Content: Thought content normal. Diagnostic Testing ED Labs Ordered and Reviewed COMPREHENSIVE METABOLIC PANEL (AK,AV,EU,FV,HL,MARIA TERESA,MM,SP) - Abnormal; Notable for the following components: Result Value Ref Range Sodium 131 (*) 136 - 145 mEq/L Glucose 198 (*) 70 - 99 mg/dL Creatinine 0.50 (*) 0.67 - 1.17 mg/dL Albumin 2.7 (*) 3.4 - 5.0 g/dL ALT 9 (*) 12 - 78 U/L Anion Gap 6 (*) 8 - 16 All other components within normal limits CBC + AUTO DIFF (AK,AV,EU,FV,HL,MARIA TERESA,MM,SP) - Abnormal; Notable for the following components: RBC 3.66 (*) 4.63 - 6.08 mil/cmm HGB 9.5 (*) 13.7 - 17.5 g/dL Hematocrit 30.8 (*) 40.1 - 51.0 % MCHC 30.8 (*) 32.3 - 36.5 % Abs. Neut(Anc) 5.41 (*) 1.78 - 5.38 thou/cmm Abs. Hutchinson 0.85 (*) 0.30 - 0.82 thou/cmm All other components within normal limits URINALYSIS WITH MICROSCOPIC (AK,AV,EU,FV,HL,MARIA TERESA,MM,SP) - Abnormal; Notable for the following components: Glucose, Urine 100 (*) Negative mg/dL All other components within normal limits MDRD GFR Procedures ED Course / Clinical Impression Clinical Impressions as of Jul 23 2056 Cellulitis of left lower extremity - Post BKA Infection of superficial incisional surgical site after procedure, initial encounter MDM / Disposition / Plan MDM The patient is a 44yo male who presents to the ED with concern for post-op site infection with stable vital signs and in no acute distress. Chart review was performed. High concern for infection at the site given exam. Zosyn, vancomycin started. Fluids begun. Patient not currently meeting SIRS criteria, no sepsis team called. I believe it is reasonable to obtain basic lab work and consult orthopaedics. I do not believe imaging, lactate, or blood cultures necessary at this time. Basic lab work largely unremarkable. No leukocytosis. Normocytic anemia likely 2/2 recent surgery that is improving since previous visit. No remarkable electrolyte abnormalities. Orthopaedics consulted and assessed patient. Recommended admission to medical floor with ortho on consult. On reevaluation, patient in pain, morphine given. Examination otherwise unchanged. Discussed results and plan with patient, who verbalized understanding and agreement. Patient's symptoms likely from post-op site infection. Low suspicion for necrotizing fascitis. Case discussed with medical team, who agreed to admit the patient. Recommended blood cultures, which were collected. I do not believe any further lab or radiologic testing would provide benefit over risk in patient or change patient's management in the ED at this time. Patient was serially reexamined in ED with no significant changes except as noted above. Patient admitted to the medical floor in hemodynamically stable condition. Questions answered at bedside prior to admission. SIGNATURE: MD Shiv Madison (Res) MD Smiley Resident 07/23/192056 Bonnie Vela MD 07/25/19 1247 Normal [facility] HISTORY PHYSICALon 0 HISTORY PHYSICAL HNO ID: [id number] Author: Shantel Arciniega Service: Hospital Medicine Author Type: Physician Type: HANDP Filed: 07/20/2019 10:04 PM Note Text: DEPARTMENT OF HOSPITAL MEDICINE HISTORY AND PHYSICAL EXAM SERVICE DATE: 07/20/2019 SERVICE TIME: 2:20PM Primary Care Physician: Elizabeth Nelson, DO NIGHT AND WEEKEND COVERAGE: From 7am - 7pm, please call [phone] After 7pm, please call cross cover pager #[phone] Subjective CHIEF COMPLAINT: Left stump redness, drainage and mild pain HPI: 44yo M with a recent history and hospitalization for OM of the left lower extremity s/p BKA, MSSA bacteremia whom was on IV Cefazolin and completed abx course, presents with the above CC. The patient comes from [facility], has a pertinent history of uncontrolled type I DM with HbA1C 11.3, has noted his left stump site become purulent, red, and arm in the last few days. Has no fever/chills, no chest pain, no headaches, no nausea, no vomiting, no dyspnea, no dysuria, and ROS unremarkable. Past medical, social, surgical, and family history as below. 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 - Pancreatitis 08/2014 - Tobacco abuse 05/27/2019 - Trimalleolar fracture of left ankle PAST SURGICAL HISTORY Procedure Laterality Date - IR VASCULAR ACCESS TEAM PICC INSERTION RADIO 06/17/2019 - NONE FAMILY HISTORY Problem Relation Age of Onset - Hypertension Mother - Diabetes Mother - Stroke Mother - Heart Mother CHF - Cataract Mother - Hypertension Father - COPD Father - Emphysema Father Social History Tobacco Use - Smoking status: Current Every Day Smoker Packs/day: 1.00 Types: Cigarettes - Smokeless tobacco: Never Used Substance Use Topics - Alcohol use: Yes Comment: socially - Drug use: Never Types: Cocaine, Amphetamines Comment: hist of cocaine and marajuana use, fentanyl MEDICATIONS: Reviewed (Not in a hospital admission) ALLERGIES No Known Allergies REVIEW OF SYSTEM: General: no fatigue, no weakness, no fever/chills HEENT: no cough, no nasal congestion, no sore throat Respiratory: no cough, no shortness of breath, no wheezing, no hemoptysis, Cardio: no chest pain, no exertional dyspnea, no leg swelling, no palpitations GI: no nausea, no vomiting, no diarrhea, no abdominal pain : no dysuria, no frequency, no incontinence Musculoskeletal: no joint pain, no joint swelling, no muscle pain, no back pain Skin: rash, no ulcers, no itching Endocrine: no cold nor heat intolerance, no polyuria, no goiter Neuro: no headaches, no syncope, no paralysis, no seizures, no tremors Objective PHYSICAL EXAM: BP 138/86 Pulse 76 Temp (Src) 98.8 (Oral) Resp 14 Ht 5' 9 (1.75m) Wt 185 lb (83.9kg) SpO2 98% BMI 27.31 kg/(m2). O2 Therapy: Room Air Physical Exam Performed: GENERAL: Alert, no distress, cooperative SKIN: left stump erythema, purulence on the lateral aspect, s/p BKA EYES: PERRLA, EOMI OROPHARYNX: Lips, mucosa, and tongue normal. Teeth and gums normal. Oropharynx normal. LUNGS: Lungs clear to auscultation, Good diaphragmatic excursion, no wheezing, no crackles CARDIAC: Normal S1 and S2; no rubs, murmurs, or gallops, RRR ABDOMEN: Abdomen soft, non-tender, BS normal, No masses or organomegaly EXTREMITIES: s/p left bka see skin examination, mild edema, NEURO: Reflexes normal and symmetric. Sensation grossly intact, Cranial nerves II-XII intact PULSES: 2+ radial, 2+ carotid Lines, Drains, and Airways Line Peripheral 07/20/19 1005 Left Hand 20 Gauge less than 1 day DATA: Diagnostic tests reviewed for today's visit: Most recent labs and imaging results. Na 131, glucose 198 Hgb 9.5 Assessment/Plan 1) Left lower extremity stump cellulitis that is purulent - IV Vancomycin pharmacy to dose - IV Zosyn 3.375mg Q6hrs started - Blood cultures to be drawn 2) History of left BKA from OM - Orthopedics evaluated patient in the ER and no current surgical needs 3) Type I DM uncontrolled at baseline with HbA1C 11.3 recently - Continue regimen of NPH 20 units in morning and night - Continue insulin lispro 8 units before meals - ISS - No need for endocrine consult currently, follows Dr. Del Real as OP 4) history of IVDA - stopped using 1 year ago 5) Tobacco abuse - Counseled on importance of quitting smoking especially with his recent BKA and having uncontrolled DM. 6) opioid abuse in past - Seen by pain management last admission is to continue his home regimen that was set: Tylenol 650mg Q6hrs as needed for fever and mild pain Methadone 10mg Q12hrs Lyrica 100mg TID 7) Constipation - Continue Senna S BID - Continue Miralax 8) Diabetic gastroparesis - Continue home Reglan and Protonix 9) HTN - Continue home lisinopril Full Code Medication and Non-Pharmacologic VTE Prophylaxis/Anticoagulant s VTE Prophylaxis: VTE prophylaxis appropriate Disposition: SNF Plan of care discussed with: Provider, RN, Patient SIGNATURE: Shantel Arciniega MD PATIENT NAME: Tori Cantor DATE: July 20, 2019 TIME: 2:55 PM PAGER/CONTACT #: [phone] [facility] HOSPon 07-20-2019 HOSP Patient:Nadeem Cantor MRN: Height:5' 9(1.753 m) Weight:189 lb 9.5 oz (86 kg) Outpatient Medications as of 07/25/19: doxycycline (VIBRA-TABS) 100 mg tablet bisacodyl (DULCOLAX) 10 mg supp methadone (DOLOPHINE) 10 mg tablet polyethylene glycol 3350 (MIRALAX, GLYCOLAX) 17 gram packet insulin regular human (NOVOLIN R,HUMULIN R) 100 unit/mL injection nystatin (MYCOSTATIN) cream metoclopramide HCl (REGLAN) 5 mg tablet insulin lispro (HUMALOG KWIKPEN) 100 unit/mL inpn DULoxetine (CYMBALTA) 20 mg capsule acetaminophen (TYLENOL) 325 mg tablet bisacodyl EC (DULCOLAX, BISACODYL,) 5 mg EC tablet lisinopril (ZESTRIL, PRINIVIL) 10 mg tablet pregabalin (LYRICA) 100 mg capsule magnesium hydroxide (MOM) 400 mg/5 mL suspension ondansetron (ZOFRAN) 4 mg tablet senna (SENNA) 8.6 mg tab ibuprofen (MOTRIN) 400 mg tablet enoxaparin (LOVENOX) 40 mg/0.[address] (PROTONIX) 40 mg tablet Admission/Clinic Administered Medications as of 07/25/19: iv contrast (radiology procedure) polyethylene glycol 3350 17 g packet (MIRALAX, GLYCOLAX) melatonin 3 mg tab(s) vancomycin iv piggyback 1.5 g in D5W 250 mL (VANCOCIN) morphine 4 mg injection insulin lispro 6 Units pen (rapid acting) (HumaLOG KWIKPEN) acetaminophen 650 mg tab(s) (TYLENOL) pregabalin 100 mg cap(s) (LYRICA) lisinopril 10 mg tab(s) (ZESTRIL, PRINIVIL) nystatin 100,000 unit/gram crea (MYCOSTATIN) DULoxetine 20 mg cap(s) (CYMBALTA) pantoprazole DR 40 mg tab(s) (PROTONIX) senna 17.2 mg tab(s) (SENOKOT) magnesium hydroxide 400 mg/5 mL 30 mL (MOM) metoclopramide HCl 5 mg (REGLAN) enoxaparin 40 mg injection (LOVENOX) NaCl 0.9% 3-5 mL ondansetron 4 mg tab(s) (ZOFRAN) ondansetron (PF) 4 mg injection (ZOFRAN) dextrose 40 % 15 g glucagon 1 mg injection (GLUCAGEN) dextrose 50 % 12.5 g injection insulin lispro pen (rapid acting) (HumaLOG KWIKPEN) vancomycin dosing and monitoring per pharmacy piperacillin-tazobactam iv piggyback 3.375 g in dextrose (iso-osmotic) 50 mL (ZOSYN) methadone 10 mg tab(s) (DOLOPHINE) insulin NPH human 20 Units injection pen (intermediate acting) (NovoLIN N, HumuLIN N) Problem List: Uncontrolled type 1 diabetes mellitus mild nonproliferative retinopathy without macular edema (HCC) [E10.3293, E10.65] Hypertension [I10] GERD (gastroesophageal reflux disease) [K21.9] Microalbuminuria [R80.9] History of diabetic gastroparesis [Z86.39] 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) [E10.42] Depression with anxiety [F41.8] Charcot's joint of right foot [M14.671] Hyperlipidemia [E78.5] Hep C w/o coma, chronic (HCC) [B18.2] History of drug abuse in remission (HCC) [F19.11] IVDU (intravenous drug user) [F19.90] Tobacco abuse [Z72.0] Left ankle joint deformity [M21.962] Hyperglycemia [R73.9] Nicotine use disorder, F17.2 [F17.200] Closed fracture of left ankle [S82.892A] Sepsis (HCC) [A41.9] Closed trimalleolar fracture of left ankle [S82.852A] Acute osteomyelitis involving lower leg, left ([facility]) [M86.162] History of left below knee amputation ([facility]) [Z89.512] Cellulitis of left lower extremity [L03.116] Cellulitis [L03.90] Allergies: No Known Allergies Date Verified:07/25/19 Lab Values Lab Value Units Date High Low POTA* 4.1 mEq/L 07/23/2019 5.1 3.5 SAWYER* 30.4 % 07/25/2019 51.0 40.1 Progress Notes (): Angela Armando RN, RN 07/20/2019 9:47 AM Signed Bed: 24-ED Expected date: 07/20/19 Expected time: Means of arrival: Comments: KELLY Charles RN, RN 07/20/2019 10:05 AM Signed Blood cultures drawn and sent. Shiv Reis MD, MD 07/23/2019 8:57 PM Cosign Needed ED Provider Note Patient Name: Tori Cantor SERVICE DATE: 07/20/19 History Patient presents with: Wound Infection: Patient arrives by EMS from [facility]. patient with left BKA about 3 weeks ago. patient sent in for potential post-op infection. Patient with redness, swelling, and drainage noted to the left stump. HPI The patient is a 44yo male with PMH significant for DM2, HTN, IVDU, left BKA who presents to the ED with concern wound infection. Patient received BKA approximately 2 weeks ago, currently residing at [facility]. Patient has had follow-up with wound care and surgery, endorses compliance with medications. Patient states the vinh were removed approximately 1 week ago. Since then, patient endorses warmth, redness, and purulence at the incisional site. Patient states he discussed this with practitioner at site, had follow up in 2 days. Was prescribed oral antibiotic but has not seen improvement. Denies sensory change, ROM change. Denies fever, LH, dizziness, headache, CP, SOB, nausea, vomiting, diarrhea, ABD pain. Denies injury or trauma. Does endorse still experiencing phantom pain in affected extremity. Has not experienced episode like this since surgery. Denies drug, EtOH use. 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 - Pancreatitis 08/2014 - Tobacco abuse 05/27/2019 - Trimalleolar fracture of left ankle PAST SURGICAL HISTORY Procedure Laterality Date - IR VASCULAR ACCESS TEAM PICC INSERTION RADIO 06/17/2019 - NONE FAMILY HISTORY Problem Relation Age of Onset - Hypertension Mother - Diabetes Mother - Stroke Mother - Heart Mother CHF - Cataract Mother - Hypertension Father - COPD Father - Emphysema Father Social History Tobacco Use - Smoking status: Current Every Day Smoker Packs/day: 1.00 Types: Cigarettes - Smokeless tobacco: Never Used Substance and Sexual Activity - Alcohol use: Yes Comment: socially - Drug use: Never Types: Cocaine, Amphetamines Comment: hist of cocaine and marajuana use, fentanyl - Sexual activity: Not on file ALLERGIES No Known Allergies Review of Systems Constitutional: Negative for chills, diaphoresis, fatigue and fever. HENT: Negative for facial swelling, rhinorrhea and sore throat. Eyes: Negative for pain, discharge and redness. Respiratory: Negative for cough, shortness of breath and wheezing. Cardiovascular: Negative for chest pain, palpitations and leg swelling. Gastrointestinal: Negative for diarrhea, nausea and vomiting. Endocrine: Negative for polydipsia, polyphagia and polyuria. Genitourinary: Negative for dysuria, flank pain and hematuria. Musculoskeletal: Positive for arthralgias. Negative for back pain, myalgias and neck pain. Skin: Positive for color change and wound. Negative for pallor and rash. Neurological: Negative for dizziness, tremors, numbness and headaches. Physical Exam BP 113/73 Pulse 76 Temp (Src) 97.5 (Oral) Resp 16 Ht 5' 9 (1.75m) Wt 189 lb 9.5 oz (86.0kg) SpO2 100% BMI 27.99 kg/(m2). O2 Therapy: Room Air Physical Exam Vitals signs and nursing note reviewed. Constitutional: General: He is not in acute distress. Appearance: He is well-developed. He is not ill-appearing or toxic-appearing. HENT: Head: Normocephalic and atraumatic. Right Ear: External ear normal. Left Ear: External ear normal. Nose: Nose normal. Mouth/Throat: Mouth: Mucous membranes are dry. Eyes: Conjunctiva/sclera: Conjunctivae normal. Pupils: Pupils are equal, round, and reactive to light. Neck: Musculoskeletal: Normal range of motion and neck supple. No neck rigidity or muscular tenderness. Cardiovascular: Rate and Rhythm: Normal rate and regular rhythm. Heart sounds: Normal heart sounds. Pulmonary: Effort: Pulmonary effort is normal. No respiratory distress. Breath sounds: Normal breath sounds. No wheezing, rhonchi or rales. Abdominal: General: Bowel sounds are normal. There is no distension. Palpations: Abdomen is soft. Tenderness: There is no abdominal tenderness. There is no guarding or rebound. Musculoskeletal: Normal range of motion. General: Swelling, tenderness, deformity and signs of injury present. Skin: General: Skin is warm and dry. Capillary Refill: Capillary refill takes less than 2 seconds. Findings: Erythema present. Comments: Left BKA. Incision present at stump in an H like pattern. There is marked erythema and warmth at the side. At the lateral part of the incision, there is yellow-appearing purulent material. The medial part of the incision appears clean, dry, intact. No purulence. No crepitus noted. No focal areas of fluid/fluctuance. Tenderness to palpation. Good ROM. Neurological: General: No focal deficit present. Mental Status: He is alert and oriented to person, place, and time. Mental status is at baseline. Psychiatric: Behavior: Behavior normal. Thought Content: Thought content normal. Diagnostic Testing ED Labs Ordered and Reviewed COMPREHENSIVE METABOLIC PANEL (AK,AV,EU,FV,HL,MARIA TERESA,MM,SP) - Abnormal; Notable for the following components: Result Value Ref Range Sodium 131 (*) 136 - 145 mEq/L Glucose 198 (*) 70 - 99 mg/dL Creatinine 0.50 (*) 0.67 - 1.17 mg/dL Albumin 2.7 (*) 3.4 - 5.0 g/dL ALT 9 (*) 12 - 78 U/L Anion Gap 6 (*) 8 - 16 All other components within normal limits CBC + AUTO DIFF (AK,AV,EU,FV,HL,MARIA TERESA,MM,SP) - Abnormal; Notable for the following components: RBC 3.66 (*) 4.63 - 6.08 mil/cmm HGB 9.5 (*) 13.7 - 17.5 g/dL Hematocrit 30.8 (*) 40.1 - 51.0 % MCHC 30.8 (*) 32.3 - 36.5 % Abs. Neut(Anc) 5.41 (*) 1.78 - 5.38 thou/cmm Abs. Hutchinson 0.85 (*) 0.30 - 0.82 thou/cmm All other components within normal limits URINALYSIS WITH MICROSCOPIC (AK,AV,EU,FV,HL,MARIA TERESA,MM,SP) - Abnormal; Notable for the following components: Glucose, Urine 100 (*) Negative mg/dL All other components within normal limits MDRD GFR Procedures ED Course / Clinical Impression Clinical Impressions as of Jul 23 2056 Cellulitis of left lower extremity - Post BKA Infection of superficial incisional surgical site after procedure, initial encounter MDM / Disposition / Plan MDM The patient is a 44yo male who presents to the ED with concern for post-op site infection with stable vital signs and in no acute distress. Chart review was performed. High concern for infection at the site given exam. Zosyn, vancomycin started. Fluids begun. Patient not currently meeting SIRS criteria, no sepsis team called. I believe it is reasonable to obtain basic lab work and consult orthopaedics. I do not believe imaging, lactate, or blood cultures necessary at this time. Basic lab work largely unremarkable. No leukocytosis. Normocytic anemia likely 2/2 recent surgery that is improving since previous visit. No remarkable electrolyte abnormalities. Orthopaedics consulted and assessed patient. Recommended admission to medical floor with ortho on consult. On reevaluation, patient in pain, morphine given. Examination otherwise unchanged. Discussed results and plan with patient, who verbalized understanding and agreement. Patient's symptoms likely from post-op site infection. Low suspicion for necrotizing fascitis. Case discussed with medical team, who agreed to admit the patient. Recommended blood cultures, which were collected. I do not believe any further lab or radiologic testing would provide benefit over risk in patient or change patient's management in the ED at this time. Patient was serially reexamined in ED with no significant changes except as noted above. Patient admitted to the medical floor in hemodynamically stable condition. Questions answered at bedside prior to admission. SIGNATURE: MD Shiv Madison (Res) MD Smiley Resident 07/23/192056 Previous Version Bonnie Vela MD, MD 07/22/2019 1:10 PM Signed HPI 44 yo M w pmhx of recent L BKA about 3 weeks ago who presents today w/ CC of wound infection. Has been on PO abx w/o improvement. No fevers. Is a diabetic. PE Gen:awake, alert CV:RRR Pulm:CTAB Abd:soft, NT S/p L BKA, wound erythematous w/ yellow drainage, +TTP DDX includes but not limited to:cellulitis, abscess, wound infection, nl wound healing ED course and plan Wound does appear infected. Pt has failed outpt abx. Ortho consulted. IV abx started. Pt admitted. Attending Note I evaluated the patient and personally participated in the zuñiga components. I agree with the resident's findings and plan as documented and have discussed the case and management of the patient's care with the resident. Signature: Bonnie Vela MD Date: 07/20/2019 Time: 10:17 AM Bonnie Vela MD 07/22/19 1310 Genoveva Charles, RN, RN 07/20/2019 10:34 AM Signed Patient provided with urinal. Educated on need for urine specimen. Patient unable to urinate at this time. Tatum Lynn (Remedial Project Manager) 07/20/2019 11:34 AM Signed MEDICATION HISTORY Patient Name:Liliam Cantor : 1975 Source of history:assisted/Other [facility] Medication Nonadherence Identified: No barriers noted The above information represents the best possible medication history: Yes Additional comments: I obtained a medication list from [facility] and updated the patient's [employer] medication list accordingly. [id number] Medication List Adjustments: Medication Regimen Changes: None Medications Added: Novolin N Nystatin cream Doxycycline hyclate 100mg tablets Medications Removed: naloxone 4 mg/actuation nasal spray (NARCAN) Discontinued by another Health Care Provider insulin NPH (HumuLIN N,NovoLIN N) pen Discontinued by another Health Care Provider insulin lispro (HUMALOG KWIKPEN) 100 unit/mL pen Discontinued by another Health Care Provider aspirin, enteric coated (ADULT LOW DOSE ASPIRIN) 81 mg EC tablet Discontinued by another Health Care Provider Short-Term Medications: Doxycycline hyclate 100mg tablets: For 4 weeks. Course initiated on 07/19/2019. Further Clarification Required: None Patient is a 30 day readmission: Yes. Description: Last admitted to [facility] on 06/21/2019 for osteomyelitis of left distal tibia. Patient Interested in Bedside Delivery: No Patient is from a nursing facility. Time Spent Reviewing Patient's Medications: 45 minutes Allergies: ALLERGIES No Known Allergies Preferred Pharmacy: N/A Patient is from a nursing facility. Current [employer] Medications: Prior to Admission medications as of 07/16/19 1309 Medication Sig Last Dose Taking doxycycline (VIBRA-TABS) 100 mg tablet Take 100 mg by mouth twice daily. For 4 weeks. Course initiated on 07/19/2019. Yes bisacodyl (DULCOLAX) 10 mg supp 10 mg by RECTAL route once daily as needed for Constipation. If no results from MOM. Yes methadone (DOLOPHINE) 10 mg tablet Take 10 mg by mouth every 12 hours. Yes polyethylene glycol 3350 (MIRALAX, GLYCOLAX) 17 gram packet Take 17 g by mouth once daily. With 4 ounces of water. Yes insulin regular human (NOVOLIN R,HUMULIN R) 100 unit/mL injection Inject 20 Units subcutaneously twice daily before meals. Yes nystatin (MYCOSTATIN) cream Apply 1 application to scrotum topically two times daily for redness. Yes metoclopramide HCl (REGLAN) 5 mg tablet Take 5 mg by mouth before meals and at bedtime. Yes insulin lispro (HUMALOG KWIKPEN) 100 unit/mL inpn Inject 8 Units subcutaneously w MEALS. Yes DULoxetine (CYMBALTA) 20 mg capsule Take 1 capsule by mouth once daily. Yes acetaminophen (TYLENOL) 325 mg tablet Take 650 mg by mouth every 6 hours as needed for Pain or Fever. Yes bisacodyl EC (DULCOLAX, BISACODYL,) 5 mg EC tablet Take 5 mg by mouth once daily as needed for Constipation. Yes lisinopril (ZESTRIL, PRINIVIL) 10 mg tablet Take 10 mg by mouth once daily. Yes pregabalin (LYRICA) 100 mg capsule Take 100 mg by mouth three times daily. Yes magnesium hydroxide (MOM) 400 mg/5 mL suspension Take 30 mL by mouth every 12 hours as needed for Constipation. Yes ondansetron (ZOFRAN) 4 mg tablet Take 4 mg by mouth every 6 hours as needed (nausea). Yes senna (SENNA) 8.6 mg tab Take 17.2 mg by mouth twice daily. Yes ibuprofen (MOTRIN) 400 mg tablet Take 400 mg by mouth every 6 hours as needed (general discomfort). Yes enoxaparin (LOVENOX) 40 mg/0.4 mL syrg Inject 40 mg subcutaneously every 24 hours. Prophylactic for prevention of DVT. Yes pantoprazole DR (PROTONIX) 40 mg tablet Take 40 mg by mouth once daily. Yes Tatum Lynn (Remedial Project Manager) Pager: [phone] [facility] Phone: [phone] July 20, 2019 11:30 AM Marei Gan RN, RN 07/20/2019 1:55 PM Signed Clean catch urine specimen obtained and sent. Marie Gan RN, RN 07/20/2019 2:25 PM Addendum Entry in error - wrong patient. Previous Version Shantel Arciniega MD 07/20/2019 10:04 PM Addendum DEPARTMENT OF HOSPITAL MEDICINE HISTORY AND PHYSICAL EXAM SERVICE DATE: 07/20/2019 SERVICE TIME: 2:20PM Primary Care Physician: Elizabeth Nelson, DO NIGHT AND WEEKEND COVERAGE: From 7am - 7pm, please call [phone] After 7pm, please call cross cover pager [phone] Subjective CHIEF COMPLAINT: Left stump redness, drainage and mild pain HPI: 44yo M with a recent history and hospitalization for OM of the left lower extremity s/p BKA, MSSA bacteremia whom was on IV Cefazolin and completed abx course, presents with the above CC. The patient comes from [facility], has a pertinent history of uncontrolled type I DM with HbA1C 11.3, has noted his left stump site become purulent, red, and arm in the last few days. Has no fever/chills, no chest pain, no headaches, no nausea, no vomiting, no dyspnea, no dysuria, and ROS unremarkable. Past medical, social, surgical, and family history as below. 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 PAST MEDICAL HISTORY Diagnosis Date - Diabetes (HCC) - DKA (diabetic ketoacidosis) (HCC) 08/2014 - Hyperglycemia 05/27/2019 - Hypertension - IVDU (intravenous drug user) 05/27/2019 - Lactose intolerance 07/30/2016 - Left ankle joint deformity 05/27/2019 - Pancreatitis 08/2014 - Tobacco abuse 05/27/2019 - Trimalleolar fracture of left ankle PAST SURGICAL HISTORY Procedure Laterality Date - IR VASCULAR ACCESS TEAM PICC INSERTION RADIO 06/17/2019 - NONE FAMILY HISTORY Problem Relation Age of Onset - Hypertension Mother - Diabetes Mother - Stroke Mother - Heart Mother CHF - Cataract Mother - Hypertension Father - COPD Father - Emphysema Father Social History Tobacco Use - Smoking status: Current Every Day Smoker Packs/day: 1.00 Types: Cigarettes - Smokeless tobacco: Never Used Substance Use Topics - Alcohol use: Yes Comment: socially - Drug use: Never Types: Cocaine, Amphetamines Comment: hist of cocaine and marajuana use, fentanyl MEDICATIONS: Reviewed (Not in a hospital admission) ALLERGIES No Known Allergies REVIEW OF SYSTEM: General: no fatigue, no weakness, no fever/chills HEENT: no cough, no nasal congestion, no sore throat Respiratory: no cough, no shortness of breath, no wheezing, no hemoptysis, Cardio: no chest pain, no exertional dyspnea, no leg swelling, no palpitations GI: no nausea, no vomiting, no diarrhea, no abdominal pain : no dysuria, no frequency, no incontinence Musculoskeletal: no joint pain, no joint swelling, no muscle pain, no back pain Skin: rash, no ulcers, no itching Endocrine: no cold nor heat intolerance, no polyuria, no goiter Neuro: no headaches, no syncope, no paralysis, no seizures, no tremors Objective PHYSICAL EXAM: BP 138/86 Pulse 76 Temp (Src) 98.8 (Oral) Resp 14 Ht 5' 9 (1.75m) Wt 185 lb (83.9kg) SpO2 98% BMI 27.31 kg/(m2). O2 Therapy: Room Air Physical Exam Performed: GENERAL: Alert, no distress, cooperative SKIN: left stump erythema, purulence on the lateral aspect, s/p BKA EYES: PERRLA, EOMI OROPHARYNX: Lips, mucosa, and tongue normal. Teeth and gums normal. Oropharynx normal. LUNGS: Lungs clear to auscultation, Good diaphragmatic excursion, no wheezing, no crackles CARDIAC: Normal S1 and S2; no rubs, murmurs, or gallops, RRR ABDOMEN: Abdomen soft, non-tender, BS normal, No masses or organomegaly EXTREMITIES: s/p left bka see skin examination, mild edema, NEURO: Reflexes normal and symmetric. Sensation grossly intact, Cranial nerves II-XII intact PULSES: 2+ radial, 2+ carotid Lines, Drains, and Airways Line Peripheral 07/20/19 1005 Left Hand 20 Gauge less than 1 day DATA: Diagnostic tests reviewed for today's visit: Most recent labs and imaging results. Na 131, glucose 198 Hgb 9.5 Assessment/Plan 1) Left lower extremity stump cellulitis that is purulent - IV Vancomycin pharmacy to dose - IV Zosyn 3.375mg Q6hrs started - Blood cultures to be drawn 2) History of left BKA from OM - Orthopedics evaluated patient in the ER and no current surgical needs 3) Type I DM uncontrolled at baseline with HbA1C 11.3 recently - Continue regimen of NPH 20 units in morning and night - Continue insulin lispro 8 units before meals - ISS - No need for endocrine consult currently, follows Dr. Del Real as OP 4) history of IVDA - stopped using 1 year ago 5) Tobacco abuse - Counseled on importance of quitting smoking especially with his recent BKA and having uncontrolled DM. 6) opioid abuse in past - Seen by pain management last admission is to continue his home regimen that was set: Tylenol 650mg Q6hrs as needed for fever and mild pain Methadone 10mg Q12hrs Lyrica 100mg TID 7) Constipation - Continue Senna S BID - Continue Miralax 8) Diabetic gastroparesis - Continue home Reglan and Protonix 9) HTN - Continue home lisinopril Full Code Medication and Non-Pharmacologic VTE Prophylaxis/Anticoagulant s VTE Prophylaxis: VTE prophylaxis appropriate Disposition: SNF Plan of care discussed with: Provider, RN, Patient SIGNATURE: Shantel Arciniega MD PATIENT NAME: Tori Cantor DATE: July 20, 2019 TIME: 2:55 PM PAGER/CONTACT #: [phone] [id number] Previous Version Marie Gan RN, RN 07/20/2019 3:06 PM Signed Blood cultures drawn with initial IV start sent to lab. Jayy Vogel MD 07/21/2019 7:35 AM Addendum ORTHOPAEDIC SURGERY CONSULT Pt: TORI CANTOR Date of consultation: 07/20/2019 Consulting Physician: Dr. Vgoel Reason for consultation: concern for infection of previous BKA of left leg ORTHO STAFF: History and physical examination reviewed. Orthopaedic consultation reviewed. Well known patient seen in office 07/14/2019; at that time vinh were removed with no evidence of infection. He indicates he has been performing daily washes of the extremity, but not the facility staff. He is very high risk for rapid progression of infection based on prior necrosis and osteomyelitis of the left lower extremity resulting in sepsis without any surgical intervention when ankle fracture was initially managed conservatively. Poor glucose control and frequently denies insulin administration. Agree with orthopaedic resident assessment and plan. High risk for revision to above knee amputation should infection progress similar to previous event. Appreciate Medicine involvement for antibiotic recommendations and BS control. Jayy Vogel MD HPI: 44 year old male presenting today with wound drainage from the previous left BKA was performed by Dr. Vogel on 06/24/2019. Patient had an history of an open fracture that progressed to osteomyelitis resulting in a BKA. Over the last few days, patient reports that his incision site has become more red, warm and painful and he is started to notice some yellow drainage on his stump dressing. the physician at his rehabilitation facility started him on oral doxycycline for this yesterday. He was then seen by a different physician this morning who thought his incision site looked bad enough to come to the emergencydepartment for possible admission for IV antibiotics. Patient denies any fevers or chills. Denies further complaints. 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 - Pancreatitis 08/2014 - Tobacco abuse 05/27/2019 - Trimalleolar fracture of left ankle PAST SURGICAL HISTORY Procedure Laterality Date - IR VASCULAR ACCESS TEAM PICC INSERTION RADIO 06/17/2019 - NONE Allergies: Patient has no known allergies. No current facility-administered medications for this encounter. Current Outpatient Medications Medication Sig - doxycycline (VIBRA-TABS) 100 mg tablet Take 100 mg by mouth twice daily. For 4 weeks. Course initiated on 07/19/2019. - bisacodyl (DULCOLAX) 10 mg supp 10 mg by RECTAL route once daily as needed for Constipation. If no results from MOM. - methadone (DOLOPHINE) 10 mg tablet Take 10 mg by mouth every 12 hours. - polyethylene glycol 3350 (MIRALAX, GLYCOLAX) 17 gram packet Take 17 g by mouth once daily. With 4 ounces of water. - insulin regular human (NOVOLIN R,HUMULIN R) 100 unit/mL injection Inject 20 Units subcutaneously twice daily before meals. - nystatin (MYCOSTATIN) cream Apply 1 application to scrotum topically two times daily for redness. - metoclopramide HCl (REGLAN) 5 mg tablet Take 5 mg by mouth before meals and at bedtime. - insulin lispro (HUMALOG KWIKPEN) 100 unit/mL inpn Inject 8 Units subcutaneously w MEALS. - DULoxetine (CYMBALTA) 20 mg capsule Take 1 capsule by mouth once daily. - acetaminophen (TYLENOL) 325 mg tablet Take 650 mg by mouth every 6 hours as needed for Pain or Fever. - bisacodyl EC (DULCOLAX, BISACODYL,) 5 mg EC tablet Take 5 mg by mouth once daily as needed for Constipation. - lisinopril (ZESTRIL, PRINIVIL) 10 mg tablet Take 10 mg by mouth once daily. - pregabalin (LYRICA) 100 mg capsule Take 100 mg by mouth three times daily. - magnesium hydroxide (MOM) 400 mg/5 mL suspension Take 30 mL by mouth every 12 hours as needed for Constipation. - ondansetron (ZOFRAN) 4 mg tablet Take 4 mg by mouth every 6 hours as needed (nausea). - senna (SENNA) 8.6 mg tab Take 17.2 mg by mouth twice daily. - ibuprofen (MOTRIN) 400 mg tablet Take 400 mg by mouth every 6 hours as needed (general discomfort). - enoxaparin (LOVENOX) 40 mg/0.4 mL syrg Inject 40 mg subcutaneously every 24 hours. Prophylactic for prevention of DVT. - pantoprazole DR (PROTONIX) 40 mg tablet Take 40 mg by mouth once daily. FH: Non-contributory. Negative for any bleeding or clotting disorders. Social Hx: Patient currently stays at a rehabilitation facility. Ambulates with a Rollator walker currently ROS: 10 pt ROS neg except in HPI O: Vitals: BP 138/86 Pulse 76 Temp 37.1 ?C (98.8 ?F) (Oral) Resp 14 Ht 175.3 cm (5' 9) Wt 83.9 kg (185 lb) SpO2 98% BMI 27.32 kg/m? Labs: Recent Labs 07/20/19 1030 NA 131* K 4.3 CHLOR 100 CO2 29 BUN 12 CREAT 0.50* GLUC 198* ANION 6* CA 8.9 ALB 2.7* AST 16 ALT 9* ALKPHOS 80 TBILI 0.4 WBC 8.01 HB 9.5* HCT 30.8* PLT 292 Physical exam: General: AANDO x 3; NAD. Cooperative throughout entire interview Extremities: evaluation of left lower extremity - previous BKA noted with drainage noted around the lateral aspect of the BKA incision site. There is erythema and very minimal expressible drainage from one particular part of the incision but there is no overt fluctuance or crepitus noted. very minimally TTP over incision site. Compartments of thigh are soft, compressible. Imaging: none A/P: 44 year old male with concern surgical site infection of a previous left lower extremity BKA Plan: - Orthopedic intervention: No plans for further orthopedic surgical intervention necessary at this time. the patient likely has a local superficial infection of the BKA surgical site with low concern for deeper infection/abscess. This is non-surgical and can likely just be treated with oral antibiotics. If patient is admitted for IV antibiotics, we will monitor him while he is here - Abx: Per ED/primary team - Case discussed with Dr. Vogel - Follow up with Dr. Vogel in 7-10 days Anthony Hill MD 3:25 PM July 20, 2019 Previous Version Debra Wilcox, Research Project Manager 07/20/2019 4:38 PM Signed PHARMACY VANCOMYCIN DOSING NOTE Patient Name: Tori Cantor Admission Date: 07/20/2019 Date of Consult: 07/20/2019 Time of Consult: 4:28 PM Indication: Skin/Soft tissue infection Goal Range: 10-20 mcg/mL RECOMMENDATIONS/PLAN: Pharmacy consulted for vancomycin dosing for Tori Cantor, a 44 year old, male who is being treated with vancomycin for left lower extremity stump cellulitis that is purulent. 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 1. Patient is currently ordered vancomycin 1.25 g IV x 1 dose. Today is day 1 of therapy. 2. No vancomycin level has been drawn for this dosing regimen. 3. Will schedule vancomycin to 1.25 g with a dosing interval of q12h 4. The next vancomycin level will be ordered for 07/22/2019 @ 1100 unless clinically indicated sooner. (Pharmacy will order) - Level prior to 5th dose due to severity of infection - Recent below knee amputation due to osteomyelitis, incision site infected We will follow patient renal function, vancomycin levels and doses with you during the course of therapy. Additional recommendations will appear in follow up notes. If you have any questions[place] [phone]. Age: [age] year old Allergies: ALLERGIES No Known Allergies Last 3 Encounter Wt Readings: Date: Wt: 07/20/2019 86 kg (189 lb 9.5 oz) 07/14/2019 70.3 kg (155 lb) 06/21/2019 70.3 kg (155 lb) Last 1 Encounter Ht Readings: Date: Ht: 07/20/2019 175.3 cm (5' 9) CrCl: 202.7 mL/min - BKA, CrCl likely lower Temp (24hrs), Av.9 ?C (98.5 ?F), Min:36.8 ?C (98.2 ?F), Max:37.1 ?C (98.8 ?F) - Current Temp: 36.8 ?C (98.2 ?F) Labs BUN (mg/dL) Date Value 07/20/2019 12 06/26/2019 11 06/25/2019 8 Creatinine (mg/dL) Date Value 07/20/2019 0.50 (L) 06/26/2019 0.55 (L) 06/25/2019 0.55 (L) WBC (thou/cmm) Date Value 07/20/2019 8.01 06/24/2019 7.31 06/24/2019 7.09 Vancomycin Levels: Vancomycin,Random (mg/L) Date/Time Value 06/11/2019 1535 16.7 Debra Wilcox, Research Project Manager Kaveh Pickard, RN, RN 07/21/2019 5:14 PM Addendum Nursing Progress Note Patient Name: Tori Cantor Patient Location: [id number] 1 Daily Note: Dr. Sahni notified of Pt refusal to take 8 units schedule log plus 2 units SSI for BS 194 and Pt stating he would only take 6 units because he does not want to drop his blood sugar too low. Per Dr. Sahni is ok for the Pt to take less and we'll watch his blood sugar level. [address] Sahni that Pt took only 6 units log for lunch instead of ordered 8 units plus 2 units SSI and that Pt BS is now 96 and he is refusing any dinner insulin coverage. Orders received to change scheduled insulin with meals to 6 units from 8 units of humalog. Notified Dr. Sahni of Pt reporting abdominal cramping on L side and that Pt states he has had it since admission and that he forgot to mention it to nursing and Dr. Sahni today. No further orders received. This note was completed by: Kaveh Pickard RN Previous Version Marie Sahni MD 07/21/2019 11:05 AM Signed DEPARTMENT OF HOSPITAL MEDICINE PROGRESS NOTE SERVICE DATE: 07/21/2019 SERVICE TIME: 11:01 AM Hospital Medicine/Primary Attending: Marie Sahni MD NIGHT AND WEEKEND COVERAGE: After 7pm please page [phone] CHIEF COMPLAINT: Cellulitis, right BKA sight SUBJECTIVE: Patient has no new complaints. States the erythema in his right BKA site looks improved on current antibiotics. No fever or chills. Pain is under control and the right stump. OBJECTIVE: PHYSICAL EXAM: BP 118/79 Pulse 80 Temp (Src) 97.9 (Oral) Resp 17 Ht 5' 9 (1.75m) Wt 189 lb 9.5 oz (86.0kg) SpO2 95% BMI 27.99 kg/(m2). O2 Therapy: Room Air General - AANDOx3, NAD, Calm CV - RRR S1 S2, No M/R/G RESP - CTA B/L No wheezes, ronchi, rales ABD - soft, NT, ND +BS EXT - no gross joint deformity, no clubbing, cyanosis, edema. Right stump shows about 4-5 inches of erythema on the distal end. There is mild to moderate swelling in this area. The incision is healing nicely with only superficial open areas on the lateral half of the incision. Drainage is bloody. MEDICATIONS: Current Facility-Administered Medications Medication Dose Route Frequency - acetaminophen 650 mg tab(s) (TYLENOL) 650 mg ORAL q 6 H PRN - pregabalin 100 mg cap(s) (LYRICA) 100 mg ORAL TID - lisinopril 10 mg tab(s) (ZESTRIL, PRINIVIL) 10 mg ORAL DAILY - insulin lispro 8 Units pen (rapid acting) (HumaLOG KWIKPEN) 8 Units SUBCUTANEOUS w MEALS - nystatin 100,000 unit/gram crea (MYCOSTATIN) TOPICAL BID - DULoxetine 20 mg cap(s) (CYMBALTA) 20 mg ORAL DAILY - pantoprazole DR 40 mg tab(s) (PROTONIX) 40 mg ORAL DAILY - senna 17.2 mg tab(s) (SENOKOT) 17.2 mg ORAL BID - polyethylene glycol 3350 17 g packet (MIRALAX, GLYCOLAX) 17 g ORAL DAILY - magnesium hydroxide 400 mg/5 mL 30 mL (MOM) 30 mL ORAL q 12 H PRN - metoclopramide HCl 5 mg (REGLAN) 5 mg ORAL AC and HS - enoxaparin 40 mg injection (LOVENOX) 40 mg SUBCUTANEOUS DAILY - NaCl 0.9% 3-5 mL 3-5 mL INTRAVENOUS q 12 H - ondansetron 4 mg tab(s) (ZOFRAN) 4 mg ORAL q 6 H PRN Or - ondansetron (PF) 4 mg injection (ZOFRAN) 4 mg INTRAVENOUS q 6 H PRN - dextrose 40 % 15 g 15 g ORAL PRN Or - glucagon 1 mg injection (GLUCAGEN) 1 mg INTRAMUSCULAR PRN Or - dextrose 50 % 12.5 g injection 12.5 g INTRAVENOUS PRN - insulin lispro pen (rapid acting) (HumaLOG KWIKPEN) SUBCUTANEOUS w MEALS - vancomycin dosing and monitoring per pharmacy OTHER As Directed - piperacillin-tazobactam iv piggyback 3.375 g in dextrose (iso-osmotic) 50 mL (ZOSYN) 3.375 g INTRAVENOUS q 6 H - vancomycin iv piggyback 1.25 g in D5W 250 mL (VANCOCIN) 1.25 g INTRAVENOUS q 12 HR - methadone 10 mg tab(s) (DOLOPHINE) 10 mg ORAL q 12 H - insulin NPH human 20 Units injection pen (intermediate acting) (NovoLIN N, HumuLIN N) 20 Units SUBCUTANEOUS BID DATA: Diagnostic tests reviewed for today's visit: CBC: Recent Labs 07/21/19 0423 WBC 6.94 RBC 3.47* HB 9.0* HCT 29.3* PLT 273 MCV 84.4 MCH 25.9 MPV 11.2 RDW 13.8 CMP: Recent Labs 07/21/19 0423 NA 137 K 4.2 CHLOR 105 CO2 29 BUN 11 CREAT 0.53* GLUC 199* CA 8.8 ANION 7* Assessment/Plan 1) Left lower extremity stump cellulitis that is purulent - IV Vancomycin pharmacy to dose - IV Zosyn 3.375mg Q6hrs started - Blood cultures negative so far ? 2) History of left BKA from OM - Orthopedics evaluated patient in the ER and no current surgical needs ? 3) Type I DM uncontrolled at baseline with HbA1C 11.3 recently - Continue regimen of NPH 20 units in morning and night - Continue insulin lispro 8 units before meals - ISS - No need for endocrine consult currently, follows Dr. Del Real as OP ? 4) history of IVDA - stopped using 1 year ago ? 5) Tobacco abuse - Counseled on importance of quitting smoking especially with his recent BKA and having uncontrolled DM. ? 6) opioid abuse in past - Seen by pain management last admission is to continue his home regimen that was set: Tylenol 650mg Q6hrs as needed for fever and mild pain Methadone 10mg Q12hrs Lyrica 100mg TID ? 7) Constipation - Continue Senna S BID - Continue Miralax ? 8) Diabetic gastroparesis - Continue home Reglan and Protonix ? 9) HTN - Continue home lisinopril VTE Prophylaxis: Lovenox 40mg Sub Q Daily Disposition: Extended Care Facility Plan of care discussed with: Patient SIGNATURE: Marie Sahni MD PATIENT NAME: Tori Cantor DATE: July 21, 2019 TIME: 11:01 AM PAGER/CONTACT #: [phone] Emelia Rousseau, Pharmacist 07/21/2019 12:43 PM Signed PHARMACY VANCOMYCIN DOSING NOTE Patient Name: Tori Cantor Admission Date: 07/20/2019 Date of Consult: 07/21/2019 Time of Consult: 12:41 PM Indication: Skin/Soft tissue infection Goal Range: 10-20 mcg/mL RECOMMENDATIONS/PLAN: Pharmacy consulted for vancomycin dosing for Tori Cantor, a 44 year old, male who is being treated with vancomycin for left lower extremity stump cellulitis that is purulent. 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 1. Patient is currently ordered Vancomycin 1.25 g IV q12h. Today is day 2 of therapy. 2. No vancomycin level has been drawn for this dosing regimen. 3. The present dose of vancomycin is the recommended dosage for this patient at this time. Continue therapy as prescribed. 4. The next vancomycin level has been ordered for 07/22/19 at 1100 (Completed) - Level prior to 5th dose due to severity of infection - Recent below knee amputation due to osteomyelitis, incision site infected We will follow patient renal function, vancomycin levels and doses with you during the course of therapy. Additional recommendations will appear in follow up notes. If [place] have [place] [phone]. Age: [age] year old Allergies: ALLERGIES No Known Allergies Last 3 Encounter Wt Readings: Date: Wt: 07/20/2019 86 kg (189 lb 9.5 oz) 07/14/2019 70.3 kg (155 lb) 06/21/2019 70.3 kg (155 lb) Last 1 Encounter Ht Readings: Date: Ht: 07/20/2019 175.3 cm (5' 9) CrCl: 191.2 mL/min Temp (24hrs), Av.9 ?C (98.4 ?F), Min:36.6 ?C (97.9 ?F), Max:37.3 ?C (99.1 ?F) - Current Temp: 36.6 ?C (97.9 ?F) Labs BUN (mg/dL) Date Value 07/21/2019 11 07/20/2019 12 06/26/2019 11 Creatinine (mg/dL) Date Value 07/21/2019 0.53 (L) 07/20/2019 0.50 (L) 06/26/2019 0.55 (L) WBC (thou/cmm) Date Value 07/21/2019 6.94 07/20/2019 8.01 06/24/2019 7.31 Vancomycin Levels: Vancomycin,Random (mg/L) Date/Time Value 06/11/2019 1535 16.7 Emelia Rousseau, Pharmacist Donnell Garcia MD 07/21/2019 8:36 PM Addendum CONSULT: INFECTIOUS DISEASE SERVICE SERVICE DATE: 07/21/2019 SERVICE TIME: 2:52 PM REASON FOR CONSULT: Stump Infection REQUESTING PHYSICIAN: PRIMARY CARE PHYSICIAN: Elizabeth Nelson DO Subjective Mr. Cantor is a 44 year old male who presents for concern for left BKA stump/ incisional infection. He is well known to our service for recent admission for left distal and tibial osteomyelitis due to MSSA, left ankle fracture/ dislocation s/p ORIF, initially treated with IV ATB which failed and he subsequently underwent a left BKA 06/24/2019. Following BKA he was treated with 7 day course of Keflex. He now presents with stump erythema, drainage from stump incision. No associated n/v/d/f/c. Per Orthopedics infection is superficial. Blood Cx sent, he was started on Vanc/ Zosyn. ID consulted for antimicrobial management. 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 - Pancreatitis 08/2014 - Tobacco abuse 05/27/2019 - Trimalleolar fracture of left ankle PAST SURGICAL HISTORY Procedure Laterality Date - IR VASCULAR ACCESS TEAM PICC INSERTION RADIO 06/17/2019 - NONE FAMILY HISTORY Problem Relation Age of Onset - Hypertension Mother - Diabetes Mother - Stroke Mother - Heart Mother CHF - Cataract Mother - Hypertension Father - COPD Father - Emphysema Father Social History Tobacco Use - Smoking status: Current Every Day Smoker Packs/day: 1.00 Types: Cigarettes - Smokeless tobacco: Never Used Substance Use Topics - Alcohol use: Yes Comment: socially - Drug use: Never Types: Cocaine, Amphetamines Comment: hist of cocaine and marajuana use, fentanyl doxycycline (VIBRA-TABS) 100 mg tablet, Take 100 mg by mouth twice daily. For 4 weeks. Course initiated on 07/19/2019., Disp: , Rfl: bisacodyl (DULCOLAX) 10 mg supp, 10 mg by RECTAL route once daily as needed for Constipation. If no results from MOM., Disp: , Rfl: methadone (DOLOPHINE) 10 mg tablet, Take 10 mg by mouth every 12 hours., Disp: , Rfl: polyethylene glycol 3350 (MIRALAX, GLYCOLAX) 17 gram packet, Take 17 g by mouth once daily. With 4 ounces of water., Disp: , Rfl: insulin regular human (NOVOLIN R,HUMULIN R) 100 unit/mL injection, Inject 20 Units subcutaneously twice daily before meals., Disp: , Rfl: nystatin (MYCOSTATIN) cream, Apply 1 application to scrotum topically two times daily for redness., Disp: , Rfl: metoclopramide HCl (REGLAN) 5 mg tablet, Take 5 mg by mouth before meals and at bedtime., Disp: , Rfl: insulin lispro (HUMALOG KWIKPEN) 100 unit/mL inpn, Inject 8 Units subcutaneously w MEALS., Disp: , Rfl: DULoxetine (CYMBALTA) 20 mg capsule, Take 1 capsule by mouth once daily., Disp: , Rfl: acetaminophen (TYLENOL) 325 mg tablet, Take 650 mg by mouth every 6 hours as needed for Pain or Fever. , Disp: , Rfl: bisacodyl EC (DULCOLAX, BISACODYL,) 5 mg EC tablet, Take 5 mg by mouth once daily as needed for Constipation., Disp: , Rfl: lisinopril (ZESTRIL, PRINIVIL) 10 mg tablet, Take 10 mg by mouth once daily., Disp: , Rfl: pregabalin (LYRICA) 100 mg capsule, Take 100 mg by mouth three times daily., Disp: , Rfl: magnesium hydroxide (MOM) 400 mg/5 mL suspension, Take 30 mL by mouth every 12 hours as needed for Constipation. , Disp: , Rfl: ondansetron (ZOFRAN) 4 mg tablet, Take 4 mg by mouth every 6 hours as needed (nausea)., Disp: , Rfl: senna (SENNA) 8.6 mg tab, Take 17.2 mg by mouth twice daily., Disp: , Rfl: ibuprofen (MOTRIN) 400 mg tablet, Take 400 mg by mouth every 6 hours as needed (general discomfort). , Disp: , Rfl: enoxaparin (LOVENOX) 40 mg/0.4 mL syrg, Inject 40 mg subcutaneously every 24 hours. Prophylactic for prevention of DVT. , Disp: , Rfl: pantoprazole DR (PROTONIX) 40 mg tablet, Take 40 mg by mouth once daily. , Disp: , Rfl: , 05/26/2019 Current Facility-Administered Medications Medication Dose Route Frequency - acetaminophen 650 mg tab(s) (TYLENOL) 650 mg ORAL q 6 H PRN - pregabalin 100 mg cap(s) (LYRICA) 100 mg ORAL TID - lisinopril 10 mg tab(s) (ZESTRIL, PRINIVIL) 10 mg ORAL DAILY - insulin lispro 8 Units pen (rapid acting) (HumaLOG KWIKPEN) 8 Units SUBCUTANEOUS w MEALS - nystatin 100,000 unit/gram crea (MYCOSTATIN) TOPICAL BID - DULoxetine 20 mg cap(s) (CYMBALTA) 20 mg ORAL DAILY - pantoprazole DR 40 mg tab(s) (PROTONIX) 40 mg ORAL DAILY - senna 17.2 mg tab(s) (SENOKOT) 17.2 mg ORAL BID - polyethylene glycol 3350 17 g packet (MIRALAX, GLYCOLAX) 17 g ORAL DAILY - magnesium hydroxide 400 mg/5 mL 30 mL (MOM) 30 mL ORAL q 12 H PRN - metoclopramide HCl 5 mg (REGLAN) 5 mg ORAL AC and HS - enoxaparin 40 mg injection (LOVENOX) 40 mg SUBCUTANEOUS DAILY - NaCl 0.9% 3-5 mL 3-5 mL INTRAVENOUS q 12 H - ondansetron 4 mg tab(s) (ZOFRAN) 4 mg ORAL q 6 H PRN Or - ondansetron (PF) 4 mg injection (ZOFRAN) 4 mg INTRAVENOUS q 6 H PRN - dextrose 40 % 15 g 15 g ORAL PRN Or - glucagon 1 mg injection (GLUCAGEN) 1 mg INTRAMUSCULAR PRN Or - dextrose 50 % 12.5 g injection 12.5 g INTRAVENOUS PRN - insulin lispro pen (rapid acting) (HumaLOG KWIKPEN) SUBCUTANEOUS w MEALS - vancomycin dosing and monitoring per pharmacy OTHER As Directed - piperacillin-tazobactam iv piggyback 3.375 g in dextrose (iso-osmotic) 50 mL (ZOSYN) 3.375 g INTRAVENOUS q 6 H - vancomycin iv piggyback 1.25 g in D5W 250 mL (VANCOCIN) 1.25 g INTRAVENOUS q 12 HR - methadone 10 mg tab(s) (DOLOPHINE) 10 mg ORAL q 12 H - insulin NPH human 20 Units injection pen (intermediate acting) (NovoLIN N, HumuLIN N) 20 Units SUBCUTANEOUS BID Allergies As of Date: 07/20/2019 (No Known Allergies) Fully Assessed 07/20/2019 COMPLETE REVIEW OF SYSTEMS: 10 point ROS complete, negative unless otherwise stated in HPI Objective PHYSICAL EXAM: Temp (24hrs), Av.9 ?C (98.4 ?F), Min:36.6 ?C (97.9 ?F), Max:37.3 ?C (99.1 ?F) GEN: Alert, pleasant, NAD HEENT: PERRL, moist oral mucosa, neck supple PULM: CTA bilateral, no rhonchi/wheezes. CV: RRR GI: soft, non distended, non tender, BSx4 : no chen, no CVAT EXT: left BKA incision with serous drainage, perincisional erythema and skin peeling. SKIN: no rash NEURO: no focal deficits, Alert and oriented x3 LINES: PIV sites clean Body mass index is 28 kg/m?. DATA: Diagnostic tests reviewed for today's visit: Recent Labs 07/21/19 0423 07/20/19 1030 WBC 6.94 8.01 HB 9.0* 9.5* PLT 273 292 NA 137 131* K 4.2 4.3 CO2 29 29 BUN 11 12 CREAT 0.53* 0.50* AST -- 16 ALT -- 9* TBILI -- 0.4 ALKPHOS -- 80 MICROBIOLOGY: 07/20/19 Blood Cx pending IMAGES: reviewed Impression/Recommendation s 1. Left BKA Incisional Infection - appears superficial - s/p BKA 06/24/19 - previous cultures with MSSA 2. Type I DM 3. High Grade MSSA Bacteremia cleared 06/12, negative JOANNA - RX'd 4. Anemia RECOMMENDATIONS: Continue Vancomycin DC Zosyn Check Wound Cx Follow Clinically CT scan w contrast of the left BKA stump to assess for abscess SIGNATURE: Cielo Ramirez APRN.RETAINING ROOM CUTTER PATIENT NAME: Tori Cantor DATE: July 21, 2019 TIME: 2:52 PM PAGER: [phone] Seen and examined independently. Agree fully w above notes as documented by the RETAINING ROOM CUTTER. Donnell Garcia MD 07/21/2019 8:35 PM Previous Version Muna Cordero RN, RN 07/21/2019 4:30 PM Signed CARE MANAGEMENT: ASSESSMENT AND DISCHARGE PLAN SERVICE DATE: 07/21/2019 SERVICE TIME: 1618 PRIMARY CARE PHYSICIAN: Elizabeth Nelson DO ADMISSION STATUS: Inpatient Needs Prior to Discharge: Facility or Agency Choices;Insurance Authorization;Discharge Transportation MEDICAL: Patient/Corporate Investigator Stated Goals: To have reduction in symptoms Health Insurance: UHC MEDICARE ADVANTAGE HMO [employer] Health Issues Impacting Discharge Plan: cellulitis stump Last Discharge Date: 06/28/19 Is this Within the Past 30 days? No Advance Directive: Current Advance Directive: None Lens Blocker Attempted to Assist with AD Completion: Yes Action: Education Provided;Patient Unwilling Health Literacy: 1. How often do you need to have someone help you when you read instructions, pamphlets, or other written material from your doctor or pharmacy? Never - 1 2. How confident are you filling out medical forms by yourself? Extremely - 1 If Patient scores > 3 on either question, the following interventions were put into place: Patient did not score > 3 FUNCTIONAL AND COGNITIVE/BEHAVIORAL PRIOR TO ADMISSION: Baseline Mental Status: Alert AND Oriented, Person, Place , Time and Situation Functional Status: Needs Assistance Does Patient Currently Receive Any Community Services or Home Care? None Equipment Prior to Admission: None Has the Patient Been in a Halfway Facility in the Past 30 days? Yes. Where and Dates: [facility] SOCIAL: Living Arrangement: Home prior to L BKA in June Lives With: Alone Financial Resources: N/A Primary Contact: Extended Emergency Contact Information Primary Emergency Contact: DARWIN CANTOR Relation: Father Secondary Emergency Contact: Ingris Flowers Relation: Relative Supportive: Yes Other Important Patient Contacts: None Caregiver Assessment: Caregiver is ready, willing and able to meet the patient's needs as recommended by the inter-professional team? No Caregiver Needed Patient's transition needs and plan for meeting these needs: return to senior living facility Does the patient have an acute stroke diagnosis, or has the patient had a stroke during this admission? No Medication Adherence: I am convinced of the importance of my prescription medication: Agree completely - 0 I worry that my prescription medication will do more harm than good to me Disagree completely - 0 I feel financially burdened by my [id number] expenses for my prescription medication: Disagree completely - 0 Patient is categorized as low risk < 2 Are you interested in bedside delivery of your medications? No Is the Patient Psychosocially Complex? No ASSESSMENT AND PLAN: Medical Needs: 2 or more chronic diseases Psychosocial Needs: None FREEDOM OF CHOICE EXPLAINED: No - return to snf POTENTIAL TRANSITION PLANS Halfway Facility/Intermediate Care Facility Met with patient, receiving skilled care at [facility] and plan is to return there when ready for transfer, infectious disease consulted for stump infection SIGNATURE: Muna Cordero RN PATIENT NAME: Tori Cantor DATE: July 21, 2019 TIME: 4:18 PM PAGER/CONTACT #: [phone] Jayy Vogel MD 07/22/2019 9:59 AM Addendum ORTHOPAEDIC SURGERY DAILY PROGRESS NOTE ORTHO STAFF: Patient seen and examined. Agree with resident assessment and plan noted below. Left below knee amputation infection inspected. Some drainage from lateral incision where vinh removed, mildly decreased local erythema. Appreciate medicine and infectious disease recommendations; ideally would improve with dressing changes and antibiotics and glucose control. Any surgical incision to the left leg places him at greatly increased risk for above-knee amputation. Discussed with patient in detail, who expressed understanding. Jayy Vogel MD ASSESMENT: 44 y/o M s/p L BKA 06/24/19 with surgical site infection PLAN: -Pain Control -Management per primary -Abx per ID - Vanc -will c/s wound center for dressing change recommendations -f/u CT -d/c planning per primary pending CT results INTERVAL HPI: Patient monitored, no new events overnight. Patient states that they are comfortable. Minimal pain this am, No F/C OBJECTIVE: BP 134/82 Pulse 74 Temp 36.2 ?C (97.2 ?F) (Temporal) Resp 16 Ht 175.3 cm (5' 9) Wt 86 kg (189 lb 9.5 oz) SpO2 95% BMI 28.00 kg/m? Intake/Output Summary (Last 24 hours) 07/21 2300 - 07/22 0659 In: - Out: 700 [Urine:700] Exam: General: NAD Extremities: Left Lower Extremity: Previous BKA incision appears without erythema this am, skin WNL. Incision healing well aside from continued serosanguinous drainage laterally. No signficiant TTP over incision site. No palpable fluctuance or crepitus. Compartments of thigh are soft, compressible. Labs: Recent Labs 07/21/19 0423 07/20/19 1030 WBC 6.94 8.01 HB 9.0* 9.5* HCT 29.3* 30.8* PLT 273 292 NA 137 131* K 4.2 4.3 CHLOR 105 100 CO2 29 29 CREAT 0.53* 0.50* BUN 11 12 GLUC 199* 198* TPROT -- 8.2 ALB -- 2.7* CA 8.8 8.9 ALKPHOS -- 80 TBILI -- 0.4 AST -- 16 ALT -- 9* Imaging: CT pending SIGNATURE: Tori Conway MD PATIENT NAME: Tori aCntor DATE: 07/22/19 TIME: 6:31 AM PAGER/CONTACT #: [phone] Previous Version Marie Sahni MD 07/22/2019 9:01 AM Signed DEPARTMENT OF HOSPITAL MEDICINE PROGRESS NOTE SERVICE DATE: 07/21/2019 SERVICE TIME: 11:01 AM Hospital Medicine/Primary Attending: Marie Sahni MD NIGHT AND WEEKEND COVERAGE: After 7pm please page [phone] CHIEF COMPLAINT: Cellulitis, right BKA sight SUBJECTIVE: Patient has no complaint of left sided sharp chest pain in the anterior axillary line the lower rib cage. He's states that he gets slightly short of breath with this because he cannot take deep breath. Her cough or hemoptysis. Started after his falls. He does not feel it is related to trauma.. States the erythema in his right BKA site looks improved on current antibiotics. No fever or chills. Pain is under control in the right stump. OBJECTIVE: PHYSICAL EXAM: BP 134/82 Pulse 74 Temp (Src) 97.2 (Temporal) Resp 16 Ht 5' 9 (1.75m) Wt 189 lb 9.5 oz (86.0kg) SpO2 95% BMI 27.99 kg/(m2). O2 Therapy: Room Air General - AANDOx3, NAD, Calm CV - RRR S1 S2, No M/R/G RESP - CTA B/L No wheezes, ronchi, rales ABD - soft, NT, ND +BS EXT - no gross joint deformity, no clubbing, cyanosis, edema. Right stump shows about 4-5 inches of erythema on the distal end. There is mild to moderate swelling in this area. The incision is healing nicely. Drainage is bloody. MEDICATIONS: Current Facility-Administered Medications Medication Dose Route Frequency - acetaminophen 650 mg tab(s) (TYLENOL) 650 mg ORAL q 6 H PRN - pregabalin 100 mg cap(s) (LYRICA) 100 mg ORAL TID - lisinopril 10 mg tab(s) (ZESTRIL, PRINIVIL) 10 mg ORAL DAILY - nystatin 100,000 unit/gram crea (MYCOSTATIN) TOPICAL BID - DULoxetine 20 mg cap(s) (CYMBALTA) 20 mg ORAL DAILY - pantoprazole DR 40 mg tab(s) (PROTONIX) 40 mg ORAL DAILY - senna 17.2 mg tab(s) (SENOKOT) 17.2 mg ORAL BID - polyethylene glycol 3350 17 g packet (MIRALAX, GLYCOLAX) 17 g ORAL DAILY - magnesium hydroxide 400 mg/5 mL 30 mL (MOM) 30 mL ORAL q 12 H PRN - metoclopramide HCl 5 mg (REGLAN) 5 mg ORAL AC and HS - enoxaparin 40 mg injection (LOVENOX) 40 mg SUBCUTANEOUS DAILY - NaCl 0.9% 3-5 mL 3-5 mL INTRAVENOUS q 12 H - ondansetron 4 mg tab(s) (ZOFRAN) 4 mg ORAL q 6 H PRN Or - ondansetron (PF) 4 mg injection (ZOFRAN) 4 mg INTRAVENOUS q 6 H PRN - dextrose 40 % 15 g 15 g ORAL PRN Or - glucagon 1 mg injection (GLUCAGEN) 1 mg INTRAMUSCULAR PRN Or - dextrose 50 % 12.5 g injection 12.5 g INTRAVENOUS PRN - insulin lispro pen (rapid acting) (HumaLOG KWIKPEN) SUBCUTANEOUS w MEALS - vancomycin dosing and monitoring per pharmacy OTHER As Directed - piperacillin-tazobactam iv piggyback 3.375 g in dextrose (iso-osmotic) 50 mL (ZOSYN) 3.375 g INTRAVENOUS q 6 H - vancomycin iv piggyback 1.25 g in D5W 250 mL (VANCOCIN) 1.25 g INTRAVENOUS q 12 HR - methadone 10 mg tab(s) (DOLOPHINE) 10 mg ORAL q 12 H - insulin NPH human 20 Units injection pen (intermediate acting) (NovoLIN N, HumuLIN N) 20 Units SUBCUTANEOUS BID - morphine 4 mg injection 4 mg INTRAVENOUS q 4 H PRN - insulin lispro 6 Units pen (rapid acting) (HumaLOG KWIKPEN) 6 Units SUBCUTANEOUS w MEALS - iv contrast (radiology procedure) INTRAVENOUS DIRECTED PRN - iv contrast (radiology procedure) INTRAVENOUS DIRECTED PRN DATA: Diagnostic tests reviewed for today's visit: Assessment/Plan 1) Left lower extremity stump cellulitis that is purulent - IV Vancomycin pharmacy to dose - IV Zosyn 3.375mg Q6hrs started - Blood cultures negative so far -CT of the left lower leg is ordered to rule out an abscess. ? 2) History of left BKA from OM - Orthopedics evaluated patient in the ER and no current surgical needs ? 3) Type I DM uncontrolled at baseline with HbA1C 11.3 recently - Continue regimen of NPH 20 units in morning and night - Continue insulin lispro 8 units before meals - ISS - No need for endocrine consult currently, follows Dr. Del Real as OP ? 4) history of IVDA - stopped using 1 year ago ? 5) Tobacco abuse - Counseled on importance of quitting smoking especially with his recent BKA and having uncontrolled DM. ? 6) opioid abuse in past - Seen by pain management last admission is to continue his home regimen that was set: Tylenol 650mg Q6hrs as needed for fever and mild pain Methadone 10mg Q12hrs Lyrica 100mg TID ? 7) Constipation - Continue Senna S BID - Continue Miralax ? 8) Diabetic gastroparesis - Continue home Reglan and Protonix ? 9) HTN - Continue home lisinopril 10) Chest pain -We will start with a chest x-ray to see if he has any infiltrates. VTE Prophylaxis: Lovenox 40mg Sub Q Daily Disposition: Extended Care Facility Plan of care discussed with: Patient SIGNATURE: Marie Sahni MD PATIENT NAME: Tori Cantor DATE: July 21, 2019 TIME: 11:01 AM PAGER/CONTACT #: [phone] Trinidad Calzada RN, RN 07/22/2019 9:58 AM Signed WOUND CARE NURSE CONSULT NOTE SERVICE DATE: 07/22/2019 SERVICE TIME: 924 REASON FOR VISIT: Wound TIME SPENT (minutes): 30 Documentation from Wound Expert can be found in scanned documents.Patient seen today by Kelly Tripp NP and RN. Patient's incision left AKA with black/red Wound bed, measures 0.7x5.5x1.6, depth is from more in the center of the incision line, tunnels somewhat up towards 12 o'clock, scant amount opaque/ss drainage, no odor, slight erythema, plan is for mesalt daily to incision line and packed into 1.6cm area. A photo was taken of the patient's wound(s)/stoma. Photos can be found under the Get Images tab on [employer]. Photos are uploaded by the wound/ostomy acute care clinical nurse specialist and may not be immediately available for viewing. Contact the wound and ostomy care department with questions. SIGNATURE: CELENA Abdullahi,RN,CWON PATIENT NAME: Tori Cantor DATE: July 22, 2019 TIME: 9:54 AM CONTACT#: [id number] LAQUITA PABLO PHARMACIST 07/22/2019 11:25 AM Addendum PHARMACY VANCOMYCIN DOSING NOTE Patient Name: Tori Cantor Admission Date: 07/20/2019 Date of Consult: 07/22/2019 Time of Consult: 11:18 AM Indication: Skin/Soft tissue infection Goal Range: 10-20 mcg/mL RECOMMENDATIONS/PLAN: Pharmacy consulted for vancomycin dosing for Tori Cantor, a 44 year old, male who is being treated with vancomycin for cellulitis. 1. Patient is currently ordered Vancomycin 1.25 g IV q12h. Today is day 3 of therapy. 2. The most recent vancomycin level was 10.9 mcg/mL drawn at 1015 on 07/22/2019. This is a 11 hour level on the 3rd day of therapy. 3. Will increase vancomycin to 1.5 g with a dosing interval of q12h. The vancomycin trough reached the therapeutic goal range, but the dose has been slightly increased due to the level being borderline on the lower end of the goal range. 4. The next vancomycin level has been ordered for 07/23/2019 @ 2300 (before the 4th dose of the new regimen) (Completed) We will follow patient renal function, vancomycin levels and doses with you during the course of therapy. Additional recommendations will appear in follow up notes. If you have any questions, please contact pharmacy at [phone] (before 16:30) or [phone] (after 16:30). Age: [age] year old Allergies: ALLERGIES No Known Allergies Last 3 Encounter Wt Readings: Date: Wt: 07/20/2019 86 kg (189 lb 9.5 oz) 07/14/2019 70.3 kg (155 lb) 06/21/2019 70.3 kg (155 lb) Last 1 Encounter Ht Readings: Date: Ht: 07/20/2019 175.3 cm (5' 9) CrCl: 191.2 mL/min Temp (24hrs), Av.6 ?C (97.9 ?F), Min:36.2 ?C (97.2 ?F), Max:36.9 ?C (98.4 ?F) - Current Temp: 36.2 ?C (97.2 ?F) Labs BUN (mg/dL) Date Value 07/21/2019 11 07/20/2019 12 06/26/2019 11 Creatinine (mg/dL) Date Value 07/21/2019 0.53 (L) 07/20/2019 0.50 (L) 06/26/2019 0.55 (L) WBC (thou/cmm) Date Value 07/21/2019 6.94 07/20/2019 8.01 06/24/2019 7.31 Vancomycin Levels: Vancomycin,Random (mg/L) Date/Time Value 07/22/2019 1015 10.9 06/11/2019 1535 16.7 LAQUITA PABLO, PHARMACIST Previous Version Donnell Garcia MD 07/22/2019 7:06 PM Addendum INFECTIOUS DISEASE PROGRESS NOTE Patient Name: Tori Cantor Date: 07/22/2019 ASSESSMENT: 1. Left BKA Incisional Infection with abscess - + GPC - s/p BKA 06/24/19 - previous cultures with MSSA 2. Type I DM 3. High Grade MSSA Bacteremia cleared 06/12, negative JOANNA - RX'd 4. Anemia ? RECOMMENDATIONS: Continue Vancomycin F/U Final Wound Cx Ortho to evaluate for I AND D INTERVAL HISTORY: Afebrile. Had CT Left Stump with showed an encapsulated fluid collection compatible with abscess No n/v/d/f/c. Wound CX growing GPC MEDICATIONS: reviewed. Current Facility-Administered Medications Medication Dose Route Frequency - acetaminophen 650 mg tab(s) (TYLENOL) 650 mg ORAL q 6 H PRN - pregabalin 100 mg cap(s) (LYRICA) 100 mg ORAL TID - lisinopril 10 mg tab(s) (ZESTRIL, PRINIVIL) 10 mg ORAL DAILY - nystatin 100,000 unit/gram crea (MYCOSTATIN) TOPICAL BID - DULoxetine 20 mg cap(s) (CYMBALTA) 20 mg ORAL DAILY - pantoprazole DR 40 mg tab(s) (PROTONIX) 40 mg ORAL DAILY - senna 17.2 mg tab(s) (SENOKOT) 17.2 mg ORAL BID - polyethylene glycol 3350 17 g packet (MIRALAX, GLYCOLAX) 17 g ORAL DAILY - magnesium hydroxide 400 mg/5 mL 30 mL (MOM) 30 mL ORAL q 12 H PRN - metoclopramide HCl 5 mg (REGLAN) 5 mg ORAL AC and HS - enoxaparin 40 mg injection (LOVENOX) 40 mg SUBCUTANEOUS DAILY - NaCl 0.9% 3-5 mL 3-5 mL INTRAVENOUS q 12 H - ondansetron 4 mg tab(s) (ZOFRAN) 4 mg ORAL q 6 H PRN Or - ondansetron (PF) 4 mg injection (ZOFRAN) 4 mg INTRAVENOUS q 6 H PRN - dextrose 40 % 15 g 15 g ORAL PRN Or - glucagon 1 mg injection (GLUCAGEN) 1 mg INTRAMUSCULAR PRN Or - dextrose 50 % 12.5 g injection 12.5 g INTRAVENOUS PRN - insulin lispro pen (rapid acting) (HumaLOG KWIKPEN) SUBCUTANEOUS w MEALS - vancomycin dosing and monitoring per pharmacy OTHER As Directed - piperacillin-tazobactam iv piggyback 3.375 g in dextrose (iso-osmotic) 50 mL (ZOSYN) 3.375 g INTRAVENOUS q 6 H - methadone 10 mg tab(s) (DOLOPHINE) 10 mg ORAL q 12 H - insulin NPH human 20 Units injection pen (intermediate acting) (NovoLIN N, HumuLIN N) 20 Units SUBCUTANEOUS BID - morphine 4 mg injection 4 mg INTRAVENOUS q 4 H PRN - insulin lispro 6 Units pen (rapid acting) (HumaLOG KWIKPEN) 6 Units SUBCUTANEOUS w MEALS - iv contrast (radiology procedure) INTRAVENOUS DIRECTED PRN - iv contrast (radiology procedure) INTRAVENOUS DIRECTED PRN - vancomycin iv piggyback 1.5 g in D5W 250 mL (VANCOCIN) 1.5 g INTRAVENOUS q 12 HR PHYSICAL EXAM: Vital signs: BP 134/82 Pulse 74 Temp 36.2 ?C (97.2 ?F) (Temporal) Resp 18 Ht 175.3 cm (5' 9) Wt 86 kg (189 lb 9.5 oz) SpO2 95% BMI 28.00 kg/m? Temp (24hrs), Av.6 ?C (97.9 ?F), Min:36.2 ?C (97.2 ?F), Max:36.9 ?C (98.4 ?F) GEN: Alert, pleasant, NAD HEENT: PERRL, moist oral mucosa, neck supple PULM: CTA bilateral, no rhonchi/wheezes. CV: RRR GI: soft, non distended, non tender, BSx4 : no chen, no CVAT EXT: left BKA incision with serous drainage, perincisional erythema and skin peeling. SKIN: no rash NEURO: no focal deficits, Alert and oriented x3 LINES: PIV sites clean Lab data: reviewed Recent Labs 07/22/19 1015 07/21/19 0423 07/20/19 1030 WBC -- 6.94 8.01 HB -- 9.0* 9.5* PLT -- 273 292 NA -- 137 131* K -- 4.2 4.3 CO2 -- 29 29 BUN -- 11 12 CREAT -- 0.53* 0.50* AST -- -- 16 ALT -- -- 9* TBILI -- -- 0.4 ALKPHOS -- -- 80 VANCORA 10.9 -- -- Microbiology data: reviewed Imaging data: reviewed Cielo KLEINC [facility] Answering Service: [phone] July 22, 2019 2:59 PM Agree fully w above notes as documented by the RETAINING ROOM CUTTER. Donnell Garcia MD 07/22/2019 7:06 PM Previous Version Muna Cordero, RN, RN 07/22/2019 3:13 PM Signed CARE MANAGEMENT PROGRESS NOTE SERVICE DATE: 07/22/2019 SERVICE TIME: 1512 LOS: 2 days Needs Prior to Discharge: Facility or Agency Choices;Insurance Authorization;Discharge Transportation Will need precert to return to [facility]. Will need PT OT evaluations SIGNATURE: Muna Cordero RN PATIENT NAME: Tori Cantor DATE: July 22, 2019 TIME: 3:12 PM PAGER/CONTACT #: [phone] Jayy Vogel MD 07/23/2019 2:11 PM Addendum ORTHOPAEDIC SURGERY DAILY PROGRESS NOTE ORTHO STAFF: Patient seen and examined. Agree with resident assessment and plan noted below. Left leg lateral wound about the same with blood tinged yellow drainage on gauze. Could not express fluid. Erythema increased over distal stump. Redressed amputation site. Plan to allow IV antibiotics through tomorrow and recheck wound; if no improvement will debride 07/25/2019 and likely apply wound vac to lateral side. Discussed in detail with patient and answered all questions. Jayy Vogel MD ASSESMENT: 44 y/o M s/p L BKA 06/24/19 with surgical site infection PLAN: -Pain Control -Management per primary -Abx per ID - Vanc -Wound care per wound center -CT results demonstrate a small abscess at lateral aspect of wound. -Continue plan for conservative management with wound care and IV abx as patient is at very high risk for wound complications with any new incision. INTERVAL HPI: Patient monitored, no new events overnight. Patient states he is having some pain which is unchanged from yesterday. No fevers/chills. OBJECTIVE: BP 128/74 Pulse 70 Temp 36.7 ?C (98.1 ?F) (Oral) Resp 18 Ht 175.3 cm (5' 9) Wt 86 kg (189 lb 9.5 oz) SpO2 99% BMI 28.00 kg/m? Intake/Output Summary (Last 24 hours) 07/22 2300 - 07/23 0659 In: 660 [PO:360; IV:300] Out: 2225 [Urine:2225] Exam: General: NAD Extremities: Left Lower Extremity: Previous BKA incision appears without erythema this am, skin WNL. Incision healing well aside from continued serosanguinous drainage laterally. No signficiant TTP over incision site. No palpable fluctuance or crepitus. Compartments of thigh are soft, compressible. Labs: Recent Labs 07/23/19 0350 07/21/19 0423 07/20/19 1030 WBC 6.29 6.94 8.01 HB 9.8* 9.0* 9.5* HCT 31.8* 29.3* 30.8* PLT 309 273 292 NA 136 137 131* K 4.1 4.2 4.3 CHLOR 102 105 100 CO2 27 29 29 CREAT 0.48* 0.53* 0.50* BUN 10 11 12 GLUC 197* 199* 198* TPROT -- -- 8.2 ALB -- -- 2.7* CA 9.0 8.8 8.9 ALKPHOS -- -- 80 TBILI -- -- 0.4 AST -- -- 16 ALT -- -- 9* Imaging: CT pending SIGNATURE: Pranav Reynolds MD PATIENT NAME: Tori Cantor DATE: 07/23/19 TIME: 6:53 AM PAGER/CONTACT #: [phone] Previous Version Marie Sahni MD 07/23/2019 1:33 PM Signed DEPARTMENT OF HOSPITAL MEDICINE PROGRESS NOTE SERVICE DATE: 07/21/2019 SERVICE TIME: 11:01 AM Hospital Medicine/Primary Attending: Marie Sahni MD NIGHT AND WEEKEND COVERAGE: After 7pm please page [phone] CHIEF COMPLAINT: Cellulitis, right BKA sight SUBJECTIVE: Patient states his lower chest and left upper quadrant abdominal discomfort are better today. Has not had a bowel movement in several days. No shortness of breath. No fever or chills. Pain is under control in the right stump. OBJECTIVE: PHYSICAL EXAM: BP 111/72 Pulse 75 Temp (Src) 97.7 (Temporal) Resp 16 Ht 5' 9 (1.75m) Wt 189 lb 9.5 oz (86.0kg) SpO2 93% BMI 27.99 kg/(m2). O2 Therapy: Room Air General - AANDOx3, NAD, Calm CV - RRR S1 S2, No M/R/G RESP - CTA B/L No wheezes, ronchi, rales ABD - soft, mild tenderness in the left upper quadrant right below the rib cage. This is slightly lower than was felt yesterday., ND +BS EXT - no gross joint deformity, no clubbing, cyanosis, edema. Right stump shows about 4-5 inches of erythema on the distal end. There is mild to moderate swelling in this area. The incision is healing nicely on the lateral aspect and is superficially broken down on the medial aspect. He drainage on the dressing.. MEDICATIONS: Current Facility-Administered Medications Medication Dose Route Frequency - acetaminophen 650 mg tab(s) (TYLENOL) 650 mg ORAL q 6 H PRN - pregabalin 100 mg cap(s) (LYRICA) 100 mg ORAL TID - lisinopril 10 mg tab(s) (ZESTRIL, PRINIVIL) 10 mg ORAL DAILY - nystatin 100,000 unit/gram crea (MYCOSTATIN) TOPICAL BID - DULoxetine 20 mg cap(s) (CYMBALTA) 20 mg ORAL DAILY - pantoprazole DR 40 mg tab(s) (PROTONIX) 40 mg ORAL DAILY - senna 17.2 mg tab(s) (SENOKOT) 17.2 mg ORAL BID - polyethylene glycol 3350 17 g packet (MIRALAX, GLYCOLAX) 17 g ORAL DAILY - magnesium hydroxide 400 mg/5 mL 30 mL (MOM) 30 mL ORAL q 12 H PRN - metoclopramide HCl 5 mg (REGLAN) 5 mg ORAL AC and HS - enoxaparin 40 mg injection (LOVENOX) 40 mg SUBCUTANEOUS DAILY - NaCl 0.9% 3-5 mL 3-5 mL INTRAVENOUS q 12 H - ondansetron 4 mg tab(s) (ZOFRAN) 4 mg ORAL q 6 H PRN Or - ondansetron (PF) 4 mg injection (ZOFRAN) 4 mg INTRAVENOUS q 6 H PRN - dextrose 40 % 15 g 15 g ORAL PRN Or - glucagon 1 mg injection (GLUCAGEN) 1 mg INTRAMUSCULAR PRN Or - dextrose 50 % 12.5 g injection 12.5 g INTRAVENOUS PRN - insulin lispro pen (rapid acting) (HumaLOG KWIKPEN) SUBCUTANEOUS w MEALS - vancomycin dosing and monitoring per pharmacy OTHER As Directed - piperacillin-tazobactam iv piggyback 3.375 g in dextrose (iso-osmotic) 50 mL (ZOSYN) 3.375 g INTRAVENOUS q 6 H - methadone 10 mg tab(s) (DOLOPHINE) 10 mg ORAL q 12 H - insulin NPH human 20 Units injection pen (intermediate acting) (NovoLIN N, HumuLIN N) 20 Units SUBCUTANEOUS BID - morphine 4 mg injection 4 mg INTRAVENOUS q 4 H PRN - insulin lispro 6 Units pen (rapid acting) (HumaLOG KWIKPEN) 6 Units SUBCUTANEOUS w MEALS - vancomycin iv piggyback 1.5 g in D5W 250 mL (VANCOCIN) 1.5 g INTRAVENOUS q 12 HR DATA: Diagnostic tests reviewed for today's visit: Assessment/Plan 1) Left lower extremity stump cellulitis with abscess - IV Vancomycin pharmacy to dose - IV Zosyn 3.375mg Q6hrs started - Blood cultures negative so far, wound culture growing staph aureus. ? 2) History of left BKA - Orthopedics reevaluated and does not recommend incision and drainage ? 3) Type I DM uncontrolled at baseline with HbA1C 11.3 recently - Continue regimen of NPH 20 units in morning and night - Continue insulin lispro 8 units before meals - ISS - No need for endocrine consult currently, follows Dr. Del Real as OP ? 4) history of IVDA - stopped using 1 year ago ? 5) Tobacco abuse - Counseled on importance of quitting smoking especially with his recent BKA and having uncontrolled DM. ? 6) opioid abuse in past - Seen by pain management last admission is to continue his home regimen that was set: Tylenol 650mg Q6hrs as needed for fever and mild pain Methadone 10mg Q12hrs Lyrica 100mg TID ? 7) Constipation - Continue Senna S BID - Continue Miralax ? 8) Diabetic gastroparesis - Continue home Reglan and Protonix ? 9) HTN - Continue home lisinopril 10) Upper abdominal discomfort. - We'll check a CT of the abdomen and pelvis. This discomfort has been present for over 2 weeks now and is moderate to severe at times. VTE Prophylaxis: Lovenox 40mg Sub Q Daily Disposition: Extended Care Facility Plan of care discussed with: Patient SIGNATURE: Marie Sahni MD PATIENT NAME: Tori Cantor DATE: July 21, 2019 TIME: 11:01 AM PAGER/CONTACT #: [phone] Miguelangel Zacarias RN, RN 07/23/2019 5:20 PM Signed Nursing Progress Note Patient Name: Tori Cantor Patient Location: [id number] Daily Note:Dr Sahni notified of hypoglycemia, ordered to give 1/2 amp D50 proir to leaving for CT and recheck when back. This note was completed by: Miguelangel Zacarias RN IRINA BURGESS, PHARMACIST 07/23/2019 11:38 PM Addendum PHARMACY VANCOMYCIN DOSING NOTE Patient Name: Tori Cantor Admission Date: 07/20/2019 Date of Consult: 07/23/2019 Time of Consult: 11:27 PM Indication: Skin/Soft tissue infection Goal Range: 10-20 mcg/mL RECOMMENDATIONS/PLAN: Pharmacy consulted for vancomycin dosing for Tori Cantor, a 44 year old, male who is being treated with vancomycin for Skin/Soft tissue infection 1. Patient is currently ordered Vancomycin 1.5 g IV q12h. Today is day 4 of therapy. 2. The most recent vancomycin level was 15.7 mcg/mL drawn at 2241 on 07-23-2019. This is a ~10 hour level on the 4 day of therapy. 3. The present dose of vancomycin is the recommended dosage for this patient at this time. Continue therapy as prescribed. 4. The next vancomycin level will be ordered for 07-24-2019 @ 2300 unless clinically indicated sooner. (Pharmacy will order) Of note, Incision site infected from recent below knee amputation s/p osteomyelitis We will follow patient renal function, vancomycin levels and doses with you during the course of therapy. Additional recommendations will appear in follow up notes. If [place] [phone]. Age: [age] year old Allergies: ALLERGIES No Known Allergies Last 3 Encounter Wt Readings: Date: Wt: 07/20/2019 86 kg (189 lb 9.5 oz) 07/14/2019 70.3 kg (155 lb) 06/21/2019 70.3 kg (155 lb) Last 1 Encounter Ht Readings: Date: Ht: 07/20/2019 175.3 cm (5' 9) CrCl: 211.1 mL/min Temp (24hrs), Av.6 ?C (97.9 ?F), Min:36.4 ?C (97.5 ?F), Max:36.7 ?C (98.1 ?F) - Current Temp: 36.7 ?C (98.1 ?F) Labs BUN (mg/dL) Date Value 07/23/2019 10 07/21/2019 11 07/20/2019 12 Creatinine (mg/dL) Date Value 07/23/2019 0.48 (L) 07/21/2019 0.53 (L) 07/20/2019 0.50 (L) WBC (thou/cmm) Date Value 07/23/2019 6.29 07/21/2019 6.94 07/20/2019 8.01 Vancomycin Levels: Vancomycin,Random (mg/L) Date/Time Value 07/23/2019 2241 15.7 07/22/2019 1015 10.9 IRINA BURGESS, PHARMACIST Previous Version Pranav Reynolds MD 07/24/2019 6:46 AM Signed ORTHOPAEDIC SURGERY DAILY PROGRESS NOTE ASSESMENT: 44 y/o M s/p L BKA 06/24/19 with surgical site infection PLAN: -Pain Control -Management per primary -Abx per ID - Vanc and zosyn -Wound care per wound center -Plan for continued antibiotics and wound check later today. If not improved or if worsened, plan for debridement and application of wound vac with Dr. Vogel 07/25/18 -NPO at midnight INTERVAL HPI: Patient monitored, no new events overnight. Patient states his pain is unchanged from yesterday. No fevers/chills. OBJECTIVE: BP 115/74 Pulse 72 Temp 36.6 ?C (97.9 ?F) (Oral) Resp 18 Ht 175.3 cm (5' 9) Wt 86 kg (189 lb 9.5 oz) SpO2 96% BMI 28.00 kg/m? Intake/Output Summary (Last 24 hours) 07/23 2300 - 07/24 0659 In: - Out: 1949 [Urine:1950] Exam: General: NAD Extremities: Left Lower Extremity: Previous BKA incision with slight erythema over lateral aspect of incision. Reddish yellow discharge on dressing. Slight opening of incision on lateral wound. No obvious fluctuance. Labs: Recent Labs 07/23/19 0350 WBC 6.29 HB 9.8* HCT 31.8* PLT 309 NA 136 K 4.1 CHLOR 102 CO2 27 CREAT 0.48* BUN 10 GLUC 197* CA 9.0 Imaging: No new imaging SIGNATURE: Pranav Reynolds MD PATIENT NAME: Tori Cantor DATE: 07/24/19 TIME: 6:34 AM PAGER/CONTACT #: [phone] Marie Sahni MD 07/24/2019 10:36 AM Signed DEPARTMENT [facility] MEDICINE PROGRESS NOTE SERVICE DATE: 07/21/2019 SERVICE TIME: 11:01 AM Hospital Medicine/Primary Attending: Marie Sahni MD NIGHT AND WEEKEND COVERAGE: After 7pm please page [phone] CHIEF COMPLAINT: Cellulitis, right BKA sight SUBJECTIVE: Patient states his lower chest and left upper quadrant abdominal discomfort are improving. Did have a bowel movement and he noted that his abdominal discomfort improved after that. No shortness of breath. No fever or chills. Pain is under control in the right stump. OBJECTIVE: PHYSICAL EXAM: BP 113/75 Pulse 79 Temp (Src) 97.5 (Temporal) Resp 16 Ht 5' 9 (1.75m) Wt 189 lb 9.5 oz (86.0kg) SpO2 97% BMI 27.99 kg/(m2). O2 Therapy: Room Air General - AANDOx3, NAD, Calm CV - RRR S1 S2, No M/R/G RESP - CTA B/L No wheezes, ronchi, rales ABD - soft, mild tenderness in the left upper quadrant right below the rib cage. This is slightly lower than was felt yesterday., ND +BS EXT - no gross joint deformity, no clubbing, cyanosis, edema. Right stump shows about 4-5 inches of erythema on the distal end. There is mild to moderate swelling in this area. The incision is healing nicely on the lateral aspect and is superficially broken down on the medial aspect. He drainage on the dressing.. MEDICATIONS: Current Facility-Administered Medications Medication Dose Route Frequency - acetaminophen 650 mg tab(s) (TYLENOL) 650 mg ORAL q 6 H PRN - pregabalin 100 mg cap(s) (LYRICA) 100 mg ORAL TID - lisinopril 10 mg tab(s) (ZESTRIL, PRINIVIL) 10 mg ORAL DAILY - nystatin 100,000 unit/gram crea (MYCOSTATIN) TOPICAL BID - DULoxetine 20 mg cap(s) (CYMBALTA) 20 mg ORAL DAILY - pantoprazole DR 40 mg tab(s) (PROTONIX) 40 mg ORAL DAILY - senna 17.2 mg tab(s) (SENOKOT) 17.2 mg ORAL BID - magnesium hydroxide 400 mg/5 mL 30 mL (MOM) 30 mL ORAL q 12 H PRN - metoclopramide HCl 5 mg (REGLAN) 5 mg ORAL AC and HS - enoxaparin 40 mg injection (LOVENOX) 40 mg SUBCUTANEOUS DAILY - NaCl 0.9% 3-5 mL 3-5 mL INTRAVENOUS q 12 H - ondansetron 4 mg tab(s) (ZOFRAN) 4 mg ORAL q 6 H PRN Or - ondansetron (PF) 4 mg injection (ZOFRAN) 4 mg INTRAVENOUS q 6 H PRN - dextrose 40 % 15 g 15 g ORAL PRN Or - glucagon 1 mg injection (GLUCAGEN) 1 mg INTRAMUSCULAR PRN Or - dextrose 50 % 12.5 g injection 12.5 g INTRAVENOUS PRN - insulin lispro pen (rapid acting) (HumaLOG KWIKPEN) SUBCUTANEOUS w MEALS - vancomycin dosing and monitoring per pharmacy OTHER As Directed - piperacillin-tazobactam iv piggyback 3.375 g in dextrose (iso-osmotic) 50 mL (ZOSYN) 3.375 g INTRAVENOUS q 6 H - methadone 10 mg tab(s) (DOLOPHINE) 10 mg ORAL q 12 H - insulin NPH human 20 Units injection pen (intermediate acting) (NovoLIN N, HumuLIN N) 20 Units SUBCUTANEOUS BID - morphine 4 mg injection 4 mg INTRAVENOUS q 4 H PRN - insulin lispro 6 Units pen (rapid acting) (HumaLOG KWIKPEN) 6 Units SUBCUTANEOUS w MEALS - vancomycin iv piggyback 1.5 g in D5W 250 mL (VANCOCIN) 1.5 g INTRAVENOUS q 12 HR - iv contrast (radiology procedure) INTRAVENOUS DIRECTED PRN And - enteric contrast (radiology procedure) ORAL DIRECTED PRN - polyethylene glycol 3350 17 g packet (MIRALAX, GLYCOLAX) 17 g ORAL BID - melatonin 3 mg tab(s) 3 mg ORAL HS PRN DATA: Diagnostic tests reviewed for today's visit: Assessment/Plan 1) Left lower extremity stump cellulitis with abscess - IV Vancomycin pharmacy to dose - IV Zosyn 3.375mg Q6hrs started - Blood cultures negative so far, wound culture growing MSSA. ? 2) History of left BKA - Orthopedics reevaluated and is considering wound exploration and wound VAC application. ? 3) Type I DM uncontrolled at baseline with HbA1C 11.3 recently - Continue regimen of NPH 20 units in morning and night - Continue insulin lispro 6 units before meals - ISS - Sugars well controlled ? 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 5) Tobacco abuse - Counseled on importance of quitting smoking especially with his recent BKA and having uncontrolled DM. ? 6) Opioid abuse in past - Seen by pain management last admission is to continue his home regimen that was set: Tylenol 650mg Q6hrs as needed for fever and mild pain Methadone 10mg Q12hrs Lyrica 100mg TID ? 7) Constipation - Resolved ? 8) Diabetic gastroparesis - Continue home Reglan and Protonix ? 9) HTN - Continue home lisinopril 10) Upper abdominal discomfort. - CT of the abdomen and pelvis still pending. VTE Prophylaxis: Lovenox 40mg Sub Q Daily Disposition: Extended Care Facility Plan of care discussed with: Patient SIGNATURE: Marie Sahni MD PATIENT NAME: Tori Cantor DATE: July 21, 2019 TIME: 11:01 AM PAGER/CONTACT #: [phone] Elizabeth Orellana, Research Project Manager 07/24/2019 8:06 PM Signed PHARMACY VANCOMYCIN DOSING NOTE Patient Name: Tori Cantor Admission Date: 07/20/2019 Date of Consult: 07/24/2019 Time of Consult: 8:00 PM Indication: Skin/Soft tissue infection Goal Range: 10-20 mcg/mL RECOMMENDATIONS/PLAN: Pharmacy consulted for vancomycin dosing for Tori Cantor, a 44 year old, male who is being treated with vancomycin for SSTI. 1. Patient is currently ordered Vancomycin 1.5 g IV q12h. Today is day 5 of therapy. 2. The most recent vancomycin level was 15.7 mcg/mL drawn at 2241 on 07/23/19. This is a 10.5 hour level on the 4 day of therapy. 3. The present dose of vancomycin is the recommended dosage for this patient at this time. Continue therapy as prescribed. 4. The next vancomycin level will be ordered for 07/27/19 at 1100 unless clinically indicated sooner. (Pharmacy will order). Renal function remains stable so will recheck vancomycin level 5 days after last lab. We will follow patient renal function, vancomycin levels and doses with you during the course of therapy. Additional recommendations will appear in follow up notes. If you have any questions, please contact Elizabeth Orellana, PharmD at [phone]. Age: [age] year old Allergies: ALLERGIES No Known Allergies Last 3 Encounter Wt Readings: Date: Wt: 07/20/2019 86 kg (189 lb 9.5 oz) 07/14/2019 70.3 kg (155 lb) 06/21/2019 70.3 kg (155 lb) Last 1 Encounter Ht Readings: Date: Ht: 07/20/2019 175.3 cm (5' 9) CrCl: 211.1 mL/min Temp (24hrs), Av.6 ?C (97.8 ?F), Min:36.4 ?C (97.5 ?F), Max:36.7 ?C (98.1 ?F) - Current Temp: 36.6 ?C (97.9 ?F) Labs BUN (mg/dL) Date Value 07/23/2019 10 07/21/2019 11 07/20/2019 12 Creatinine (mg/dL) Date Value 07/23/2019 0.48 (L) 07/21/2019 0.53 (L) 07/20/2019 0.50 (L) WBC (thou/cmm) Date Value 07/23/2019 6.29 07/21/2019 6.94 07/20/2019 8.01 Vancomycin Levels: Vancomycin,Random (mg/L) Date/Time Value 07/23/2019 2241 15.7 07/22/2019 1015 10.9 Elizabeth Orellana, Research Project Manager Velvet Phelps MD 07/25/2019 6:06 AM Signed ORTHOPAEDIC SURGERY DAILY PROGRESS NOTE Patient Name: Tori Cantor Date of Evaluation: 07/25/2019 Admission Date: 07/20/2019 Time of Evaluation: 6:03 AM ASSESSMENT: 44 year old male with SSI s/p BKA 06/24/19 for tibial osteomyelitis and soft tissue necrosis PLAN: -Pain Control -Management per primary -Abx per ID - Vanc and zosyn -Wound care per wound center -IANDD today with possible application of wound vac -NPO since midnight INTERVAL HPI: Patient monitored, no new events overnight. Well Controlled pain. Denies nausea/vomitting. OBJECTIVE: BP 116/70 Pulse 86 Temp 36.7 ?C (98.1 ?F) (Oral) Resp 18 Ht 175.3 cm (5' 9) Wt 86 kg (189 lb 9.5 oz) SpO2 94% BMI 28.00 kg/m? Intake/Output Summary (Last 24 hours) 07/24 2300 - 07/25 0659 In: - Out: 1200 [Urine:1200] Exam: General: NAD, AAOx3 Extremities: Previous BKA incision with slight erythema over lateral aspect of incision. Reddish yellow discharge on dressing. Slight opening of incision on lateral wound. No obvious fluctuance. ? Labs: CBC: WBC 6.18 07/25/2019 Hemoglobin 9.4 07/25/2019 Hematocrit 30.4 07/25/2019 Platelet Count 277 07/25/2019 BMP: Sodium 136 07/23/2019 Potassium 4.1 07/23/2019 Chloride 102 07/23/2019 CO2 27 07/23/2019 BUN 10 07/23/2019 Creatinine 0.48 07/23/2019 Glucose 197 07/23/2019 COAGS: APTT 27.6 06/09/2019 PT INR 1.01 06/21/2019 SED RATE/CRP: Sed Rate, Westergren 84 06/08/2019 CRP 23.80 06/08/2019 Imaging: CT abdomen/pelvis to evaluate abdominal pain completed but radiology read pending. Velvet Phelps MD PGY-V, Orthopaedic Surgery [facility] Phone #: [phone] Please page [phone] after 5pm or if you need a prompt response 07/25/2019 6:03 AM Remy Peraza MD 07/25/2019 6:53 AM Incomplete TORI CANTOR 44 year old PAIN MANAGEMENT: Status post left BKA 06/24/2019, left leg cellulitis, history of left trimalleolar ankle fracture, osteomyelitis, history of IV drug abuse 24 HOUR COMFORT MEDICATIONS: Methadone 10 mg every 12 hours Lyrica 100 mg 3 times a day Morphine 4 mg IV ?6 [place] prescription history shows regular use of methadone 10 mg twice a day, occasional oxycodone or Percocet, regular pregabalin at 100 mg 3 times a day. Methadone last filled on 07/06/2019 for #30 representing a 15 day supply. Antibiotic Therapy: Zosyn/vancomycin Subjective HPI: 44-year-old male, readmitted on 07/20/2019 secondary to cellulitis involving his left leg stump. He is status post left BKA last month, and we were involved in his pain management during that hospitalization. 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 Patient was readmitted to orthopedic service with redislocation of the tibiotalar joint, exposed necrotic tibia and worsening fracture displacement. He underwent left BKA with removal of external fixator 06/24. ? Patient is known to our team from his recent admission 06/09?06/20 for MSSA bacteremia and osteomyelitis. He was discharged to SNF on oxycodone 5 mg #30 ? Prior to admission patient was taking Lyrica 100 mg by mouth 3 times a day. ?He smokes 1 pack per day. ?He denies alcohol. ?He does use marijuana infrequently. He states he had done street drugs for 30 years and then he last used a while ago. ?He has a history of IV cocaine and methamphetamine. ?He also admits to history of frequent IV fentanyl use. By the time of his hospital discharge, this patient was on methadone 10 mg every 12 hours, and we will utilizing oxycodone 10?15 milligrams every 3 hours as necessary for pain, the oxycodone was continued only for a short period of time post discharge, but methadone has been continued post discharge at 10 mg every 12 hours. In addition to his current methadone, he is utilizing IV morphine for breakthrough pain. He is also complaining of lower chest and left upper quadrant abdominal pain. He is status post a bowel movement which did seem to help his pain. Current Facility-Administered Medications Medication Dose Route Frequency Provider Last Rate Last Dose - iv contrast (radiology procedure) INTRAVENOUS DIRECTED PRN Marie Sahni - polyethylene glycol 3350 17 g packet (MIRALAX, GLYCOLAX) 17 g ORAL BID Marie Sahni 17 g at 07/24/19 2213 - melatonin 3 mg tab(s) 3 mg ORAL HS PRN Mo Gant) SHRUTHI Delgado.MARTHA - vancomycin iv piggyback 1.5 g in D5W 250 mL (VANCOCIN) 1.5 g INTRAVENOUS q 12 HR Laquita Pablo (Pharmacist) 125 mL/hr at 07/25/19 0002 1.5 g at 07/25/19 0002 - morphine 4 mg injection 4 mg INTRAVENOUS q 4 H PRN Marie Sahni 4 mg at 07/25/19 0552 - insulin lispro 6 Units pen (rapid acting) (HumaLOG KWIKPEN) 6 Units SUBCUTANEOUS w MEALS Marie Sahni 6 Units at 07/24/19 1702 - acetaminophen 650 mg tab(s) (TYLENOL) 650 mg ORAL q 6 H PRN Nauhar Arciniega 650 mg at 07/22/19 1259 - pregabalin 100 mg cap(s) (LYRICA) 100 mg ORAL TID Nauhar Arciniega 100 mg at 07/24/192139 - lisinopril 10 mg tab(s) (ZESTRIL, PRINIVIL) 10 mg ORAL DAILY Nauhar Arciniega 10 mg at 07/24/19921 - nystatin 100,000 unit/gram crea (MYCOSTATIN) TOPICAL BID Nauhar Arciniega - DULoxetine 20 mg cap(s) (CYMBALTA) 20 mg ORAL DAILY Nauhar Arciniega 20 mg at 07/24/19920 - pantoprazole DR 40 mg tab(s) (PROTONIX) 40 mg ORAL DAILY Nauhar Arciniega 40 mg at 07/24/19921 - senna 17.2 mg tab(s) (SENOKOT) 17.2 mg ORAL BID Nauhar Arciniega 17.2 mg at 07/24/192139 - magnesium hydroxide 400 mg/5 mL 30 mL (MOM) 30 mL ORAL q 12 H PRN Nauhar Arciniega - metoclopramide HCl 5 mg (REGLAN) 5 mg ORAL AC and HS Nauhar Arciniega 5 mg at 07/24/192139 - enoxaparin 40 mg injection (LOVENOX) 40 mg SUBCUTANEOUS DAILY Nauhar Arciniega 40 mg at 07/24/19920 - NaCl 0.9% 3-5 mL 3-5 mL INTRAVENOUS q 12 H Nauhar Arciniega 3 mL at 07/24/19921 - ondansetron 4 mg tab(s) (ZOFRAN) 4 mg ORAL q 6 H PRN Nauhar Arciniega Or - ondansetron (PF) 4 mg injection (ZOFRAN) 4 mg INTRAVENOUS q 6 H PRN [facility] - dextrose 40 % 15 [facility] at 07/23/19 1622 Or - glucagon 1 mg injection (GLUCAGEN) 1 mg INTRAMUSCULAR PRN [facility] Or - dextrose 50 % 12.5 g injection 12.5 g INTRAVENOUS PRN [facility] 12.5 g at 07/23/19 1715 - insulin lispro pen (rapid acting) (HumaLOG KWIKPEN) SUBCUTANEOUS w MEALS [facility] 2 Units at 07/24/19 1702 - vancomycin dosing and monitoring per pharmacy OTHER As Directed [facility] - piperacillin-tazobactam iv piggyback 3.375 g in dextrose (iso-osmotic) 50 mL (ZOSYN) 3.375 g INTRAVENOUS q 6 H [facility] mL/hr at 07/25/19 0541 3.375 g at 07/25/19 0541 - methadone 10 mg tab(s) (DOLOPHINE) 10 mg ORAL q 12 H [facility] 10 mg at 07/24/19 2140 - insulin NPH human 20 Units injection pen (intermediate acting) (NovoLIN N, HumuLIN N) 20 Units SUBCUTANEOUS BID [facility] 10 Units at 07/24/19 2207 doxycycline (VIBRA-TABS) 100 mg tablet, Take 100 mg by mouth twice daily. For 4 weeks. Course initiated on 07/19/2019., Disp: , Rfl: bisacodyl (DULCOLAX) 10 mg supp, 10 mg by RECTAL route once daily as needed for Constipation. If no results from MOM., Disp: , Rfl: methadone (DOLOPHINE) 10 mg tablet, Take 10 mg by mouth every 12 hours., Disp: , Rfl: polyethylene glycol 3350 (MIRALAX, GLYCOLAX) 17 gram packet, Take 17 g by mouth once daily. With 4 ounces of water., Disp: , Rfl: insulin regular human (NOVOLIN R,HUMULIN R) 100 unit/mL injection, Inject 20 Units subcutaneously twice daily before meals., Disp: , Rfl: nystatin (MYCOSTATIN) cream, Apply 1 application to scrotum topically two times daily for redness., Disp: , Rfl: metoclopramide HCl (REGLAN) 5 mg tablet, Take 5 mg by mouth before meals and at bedtime., Disp: , Rfl: insulin lispro (HUMALOG KWIKPEN) 100 unit/mL inpn, Inject 8 Units subcutaneously w MEALS., Disp: , Rfl: DULoxetine (CYMBALTA) 20 mg capsule, Take 1 capsule by mouth once daily., Disp: , Rfl: acetaminophen (TYLENOL) 325 mg tablet, Take 650 mg by mouth every 6 hours as needed for Pain or Fever. , Disp: , Rfl: bisacodyl EC (DULCOLAX, BISACODYL,) 5 mg EC tablet, Take 5 mg by mouth once daily as needed for Constipation., Disp: , Rfl: lisinopril (ZESTRIL, PRINIVIL) 10 mg tablet, Take 10 mg by mouth once daily., Disp: , Rfl: pregabalin (LYRICA) 100 mg capsule, Take 100 mg by mouth three times daily., Disp: , Rfl: magnesium hydroxide (MOM) 400 mg/5 mL suspension, Take 30 mL by mouth every 12 hours as needed for Constipation. , Disp: , Rfl: ondansetron (ZOFRAN) 4 mg tablet, Take 4 mg by mouth every 6 hours as needed (nausea)., Disp: , Rfl: senna (SENNA) 8.6 mg tab, Take 17.2 mg by mouth twice daily., Disp: , Rfl: ibuprofen (MOTRIN) 400 mg tablet, Take 400 mg by mouth every 6 hours as needed (general discomfort). , Disp: , Rfl: enoxaparin (LOVENOX) 40 mg/0.4 mL syrg, Inject 40 mg subcutaneously every 24 hours. Prophylactic for prevention of DVT. , Disp: , Rfl: pantoprazole DR (PROTONIX) 40 mg tablet, Take 40 mg by mouth once daily. , Disp: , Rfl: , 05/26/2019 Social History Tobacco Use - Smoking status: Current Every Day Smoker Packs/day: 1.00 Types: Cigarettes - Smokeless tobacco: Never Used Substance Use Topics - Alcohol use: Yes Comment: socially - Drug use: Never Types: Cocaine, Amphetamines Comment: hist of cocaine and marajuana use, fentanyl FAMILY HISTORY Problem Relation Age of Onset - Hypertension Mother - Diabetes Mother - Stroke Mother - Heart Mother CHF - Cataract Mother - Hypertension Father - COPD Father - Emphysema Father PAST SURGICAL HISTORY Procedure Laterality Date - IR VASCULAR ACCESS TEAM PICC INSERTION RADIO 06/17/2019 - NONE ROS: All of the following reviewed and negative except as noted below: GENERAL: no fever, chills, sweats, weight loss, fatigue, generalized weakness HEENT: no headache, vision changes, eye discomfort, hearing change, ear discomfort, sinus pain, nasal discharge or congestion, oral lesions, soreness, dental problem NECK: no adenopathy, discomfort, change in ROM CHEST: no shortness of breath, dyspnea on exertion, wheezing, cough, sputum production or chest pain HEART: no chest pain, palpitations, syncope ABDOMEN: no nausea, vomiting, constipation, diarrhea, abdominal pain : no dysuria, urgency, frequency, history of stones, incontinence NEURO: no confusion or alteration in consciousness, slurred speech, seizure, focal weakness EXTREMITIES: no new pain, edema, change in ROM HEME: no new adenopathy, bruises, petechiae PSYCH: no depression, anxiety, agitation PHYSICAL EXAMINATION: see below for new or abnormal findings BP 116/70 Pulse 86 Temp 36.7 ?C (98.1 ?F) (Oral) Resp 18 Ht 175.3 cm (5' 9) Wt 86 kg (189 lb 9.5 oz) SpO2 94% BMI 28.00 kg/m? BMI 28.00 kg/(m2) Date 07/24/19 07 - 07/25/19 0659 07/25/19 0700 - 07/26/19 0659 Shift 2717-4709 9048-2070 2223-4566 24 Hour Total 2105-1894 9652-3652 3447-0253 24 Hour Total INTAKE PO 4290 139 4954 PO 5043 453 7268 IV 300 50 350 Volume (mL) (piperacillin-tazobactam iv piggyback 3.375 g in dextrose (iso-osmotic) 50 mL (ZOSYN)) 50 50 100 Volume (mL) (vancomycin iv piggyback 1.5 g in D5W 250 mL (VANCOCIN)) 250 250 Shift Total 3159 887 0685 OUTPUT Urine 500 1400 1200 3100 Void (ml) 500 1400 1200 3100 Urine Not Saved. 1 x 1 x Shift Total 500 1400 1200 3100 Weight (kg) 86 86 86 86 86 86 86 86 GENERAL: well nourished and developed; no acute distress; alert and oriented x 3; intact judgement and insight HEENT: no evidence of trauma; cranial nerves intact; eyes clear EOMI; no hearing deficits apparent; nasal passages unremarkable; throat and mucous membranes clear NECK: supple without lymphadenopathy; no JVD; no thyromegaly CHEST: clear bilaterally to auscultation; normal chest movement; no rales or rhonchi HEART: regular rate and rhythm, normal S1 and S2, no murmurs, clicks, rubs, or gallops ABDOMEN: soft; nondistended; bowel sounds present; no hepatomegaly; no splenomegaly; no tenderness EXTREMITIES: no evidence of clubbing; no cyanosis; no deformity; no joint effusion; no edema NEURO: cranial nerves intact; no focal deficits; no confusion; no tremor; sensorium normal SKIN: no rash; no skin breakdown; no decubitus lesions HEME: no bruising; no adenopathy PSYCH: no evidence of depression; no anxiety; no agitation; no apparent hallucinations PAIN PSYCHIATRIC EXAM: GENERAL: alert, oriented to person, place, time JUDGMENT AND INSIGHT: intact APPEARANCE: neatly groomed DEMEANOR: coooperative, not hostile, mistrustful, preoccupied, or demanding ACTIVITY: normal, not hyperactive or hypoactive, no tremors, tics EYE CONTACT: normal SPEECH: normal, rate, volume, articulation, coherence, spontaneity MOOD: normal, without overt sadness, grief, anxiety, appropriate to situation IDEATION: normal and without suicidal or homicidal ideation MEMORY: intact ABNORMAL/NEW FINDINGS: NONE RADIOLOGY/DIAGNOSTICS: LABORATORY: CBC: Recent Labs 07/25/19 0241 WBC 6.18 RBC 3.60* HB 9.4* HCT 30.4* PLT 277 MCV 84.4 MCH 26.1 MPV 11.1 RDW 13.5 CMP: No results for input(s): NA, K, CHLOR, CO2, BUN, CREAT, GLUC, TPROT, CA, MG, ALBUMIN, TBILI, ALKPHOS, ALT, AST, ANION in the last 24 hours. Heme: No results for input(s): RETICP, ABSRETIC, LD, VIKRAM, FE, TIBC, TRANSFERSAT in the last 24 hours. 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 (HCC) Hypertension Gerd (Gastroesophageal Reflux Disease) Microalbuminuria History of Diabetic Gastroparesis Diabetic Polyneuropathy Associated With Type 1 Diabetes Mellitus (Hcc) Depression With Anxiety Charcot's Joint of Right Foot Hyperlipidemia Hep C W/O Coma, Chronic (Hcc) History of Drug Abuse in Remission (Hcc) Ivdu (Intravenous Drug User) Tobacco Abuse Left Ankle Joint Deformity Hyperglycemia Nicotine use disorder, F17.2 Closed Fracture of Left Ankle Sepsis (Hcc) Closed Trimalleolar Fracture of Left Ankle Acute Osteomyelitis Involving Lower Leg, Left (Hcc) History of Left Below Knee Amputation (Hcc) Cellulitis of Left Lower Extremity Cellulitis PLAN: Still with acute left stump pain, status post left BKA, with concerns regarding ongoing infection, may need debridement and wound VAC to possibly be placed today 07/25/2019. Significant concerns regarding prior IV drug abuse. Previously discharged on methadone 10 mg every 12 hours and maintained on this post discharge. Currently utilizing morphine 4 mg IV frequently for breakthrough pain. Abdominal pain has improved status post bowel movement Remy Jorge MD 07/25/2019 7:26 AM Signed ANESTHESIOLOGY DAY OF SURGERY NOTE SERVICE DATE: 07/25/2019 SERVICE TIME: 7:25 AM : 1975 Procedure(s) (LRB): INCISION AND DRAINAGE POST OP INFECTION LOWER EXTREMITY (Left) APPLICATION WOUND VAC EXTREMITY LOWER TOTAL WOUND SURFACE LESS THAN 50 SQ CENTIMETERS (Left) Surgeon(s): Jayy Vogel Estimated body mass index is 28 kg/m? as calculated from the following: Height as of this encounter: 175.3 cm (5' 9). Weight as of this encounter: 86 kg (189 lb 9.5 oz). Most recent hematocrit and potassium results: Hematocrit 30.4 07/25/2019 Potassium 4.1 07/23/2019 ANES DOS/PREOP NOTE: Vitals: 07/24/19 1644 07/24/19 1933 07/25/19 0240 07/25/19 0718 BP: 142/93 121/75 116/70 121/83 Pulse: 75 78 86 79 Resp: 16 18 18 18 Temp: 36.5 ?C (97.7 ?F) 36.6 ?C (97.9 ?F) 36.7 ?C (98.1 ?F) (!) 35.8 ?C (96.4 ?F) TempSrc: Temporal Oral Oral Temporal SpO2: 99% 99% 94% 95% Weight: Height: ACTIVE PROBLEM LIST Uncontrolled type 1 diabetes mellitus mild nonproliferative retinopathy without macular edema ([facility]) Hypertension Gerd (Gastroesophageal Reflux Disease) Microalbuminuria History of Diabetic Gastroparesis Diabetic Polyneuropathy Associated With Type 1 Diabetes Mellitus ([facility]) Depression With Anxiety Charcot's Joint of Right Foot Hyperlipidemia Hep C W/O Coma, Chronic ([facility]) History of Drug Abuse in Remission ([facility]) Ivdu (Intravenous Drug User) Tobacco Abuse Left Ankle Joint Deformity Hyperglycemia Nicotine use disorder, F17.2 Closed Fracture of Left Ankle Sepsis ([facility]) Closed Trimalleolar Fracture of Left Ankle Acute Osteomyelitis Involving Lower Leg, Left ([facility]) History of Left Below Knee Amputation ([facility]) Cellulitis of Left Lower Extremity Cellulitis 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 - Pancreatitis 08/2014 - Tobacco abuse 05/27/2019 - Trimalleolar fracture of left ankle PAST SURGICAL HISTORY Procedure Laterality Date - IR VASCULAR ACCESS TEAM PICC INSERTION RADIO 06/17/2019 - NONE FAMILY HISTORY Problem Relation Age of Onset - Hypertension Mother - Diabetes Mother - Stroke Mother - Heart Mother CHF - Cataract Mother - Hypertension Father - COPD Father - Emphysema Father Social History: Social History Tobacco Use - Smoking status: Current Every Day Smoker Packs/day: 1.00 Types: Cigarettes - Smokeless tobacco: Never Used Substance Use Topics - Alcohol use: Yes Comment: socially - Drug use: Never Types: Cocaine, Amphetamines Comment: hist of cocaine and marajuana use, fentanyl No current facility-administered medications on file (more content not included)... Normal [facility] Hemogram/Diffon 07-20-2019 Abs Immature Grans 0.02 thou/cmm Normal 0.00-0.05 [facility] Comment on above: Performed By: #### P 8 #### [facility] [address] [place] [address] Abs Neut (ANC) 5.41 thou/cmm High 1.78-5.38 [facility] Comment on above: Performed By: #### P 8 #### [facility] [address] [place] [address] Abs. Baso 0.07 thou/cmm Normal 0.01-0.08 [facility] Comment on above: Performed By: #### P 8 #### [facility] [address] [place] [address] Abs. [place] 0.85 thou/cmm High 0.30-0.82 [facility] Comment on above: Performed By: #### P 8 #### [facility] [address] [place] [address] Basophils/100 WBC (Bld) 0.9 % Normal [facility] Comment on above: Performed By: #### P 8 #### [facility] [address] [place] [address] Eosinophils (Bld) [#/Vol] 0.23 thou/cmm Normal 0.04-0.54 [facility] Comment on above: Performed By: #### P 8 #### [facility] [address] [place] [address] Eosinophils/100 WBC (Bld) 2.9 % Normal [facility] Comment on above: Performed By: #### P 8 #### [facility] [address] [place] [address] Erythrocyte distribution width (RBC) [Ratio] 13.6 % Normal 11.6-14.4 [facility] Comment on above: Performed By: #### P 8 #### [facility] [address] [place] [address] Hematocrit (Bld) [Volume fraction] 30.8 % Low 40.1-51.0 [facility] Comment on above: Performed By: #### P 8 #### [facility] [address] [place] [address] Hemoglobin (Bld) [Mass/Vol] 9.5 g/dL Low 13.7-17.5 [facility] Comment on above: Performed By: #### P 8 #### [facility] [address] [place] [address] Immature Grans 0.20 % Normal [facility] Comment on above: Performed By: #### P 8 #### [facility] [address] [place], [place] [address] Lymphocytes (Bld) [#/Vol] 1.43 thou/cmm Normal 0.84-2.85 [facility] Comment on above: Performed By: #### P 8 #### [facility] [address] [place], [place] [address] Lymphocytes/100 WBC (Bld) 17.9 % Normal [facility] Comment on above: Performed By: #### P 8 #### [facility] [address] [place], [place] [address] MCH (RBC) [Entitic mass] 26.0 pg Normal 25.7-32.2 [facility] Comment on above: Performed By: #### P 8 #### [facility] [address] [place], [place] [address] MCHC (RBC) [Mass/Vol] 30.8 % Low 32.3-36.5 [facility] Comment on above: Performed By: #### P 8 #### [facility] [address] [place], [place] [address] MCV (RBC) [Entitic vol] 84.2 fL Normal 83.2-95.6 [facility] Comment on above: Performed By: #### P 8 #### [facility] [address] [place], [place] [address] Monocytes/100 WBC (Bld) 10.6 % Normal [facility] Comment on above: Performed By: #### P 8 #### [facility] [address] [place], [place] [address] Platelet mean volume (Bld) [Entitic vol] 11.4 fL Normal 8.7-12.0 [facility] Comment on above: Performed By: #### P 8 #### [facility] [address] [place], [place] [address] Platelets (Bld) [#/Vol] 292 thou/cmm Normal 141-365 [facility] Comment on above: Performed By: #### P 8 #### [facility] [address] [place], [place] [address] RBC (Bld) [#/Vol] 3.66 mil/cmm Low 4.63-6.08 [facility] Comment on above: Performed By: #### P 8 #### [facility] [address] [place], [place] [address] RDW SD 42.1 fl Normal 36.1-45.8 [facility] Comment on above: Performed By: #### P 8 #### [facility] [address] [place], [place] [address] Seg Neutrophil 67.5 % Normal [facility] Comment on above: Performed By: #### P 8 #### [facility] [address] [place], [place] [address] WBC (Bld) [#/Vol] 8.01 thou/cmm Normal 4.23-9.07 [facility] Comment on above: Performed By: #### P 8 #### [facility] [address] [place], [place] [address] PLAN OF CAREon 07-20-2019 PLAN OF CARE HNO ID: [id number] Author: Debra Wilcox (Research Project Manager) Service: Pharmacy Author Type: Pharmacist Type: Plan of Care Filed: 07/20/2019 4:38 PM Note Text: PHARMACY VANCOMYCIN DOSING NOTE Patient Name: Tori Cantor Admission Date: 07/20/2019 Date of Consult: 07/20/2019 Time of Consult: 4:28 PM Indication: Skin/Soft tissue infection Goal Range: 10-20 mcg/mL RECOMMENDATIONS/PLAN: Pharmacy consulted for vancomycin dosing for Tori Cantor, a 44 year old, male who is being treated with vancomycin for left lower extremity stump cellulitis that is purulent. 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 1. Patient is currently ordered vancomycin 1.25 g IV x 1 dose. Today is day 1 of therapy. 2. No vancomycin level has been drawn for this dosing regimen. 3. Will schedule vancomycin to 1.25 g with a dosing interval of q12h 4. The next vancomycin level will be ordered for 07/22/2019 @ 1100 unless clinically indicated sooner. (Pharmacy will order) - Level prior to 5th dose due to severity of infection - Recent below knee amputation due to osteomyelitis, incision site infected We will follow patient renal function, vancomycin levels and doses with you during the course of therapy. Additional recommendations will appear in follow up notes. If you have any questions[place] [phone]. Age: [age] year old Allergies: ALLERGIES No Known Allergies Last 3 Encounter Wt Readings: Date: Wt: 07/20/2019 86 kg (189 lb 9.5 oz) 07/14/2019 70.3 kg (155 lb) 06/21/2019 70.3 kg (155 lb) Last 1 Encounter Ht Readings: Date: Ht: 07/20/2019 175.3 cm (5' 9) CrCl: 202.7 mL/min - BKA, CrCl likely lower Temp (24hrs), Av.9 ?C (98.5 ?F), Min:36.8 ?C (98.2 ?F), Max:37.1 ?C (98.8 ?F) - Current Temp: 36.8 ?C (98.2 ?F) Labs BUN (mg/dL) Date Value 07/20/2019 12 06/26/2019 11 06/25/2019 8 Creatinine (mg/dL) Date Value 07/20/2019 0.50 (L) 06/26/2019 0.55 (L) 06/25/2019 0.55 (L) WBC (thou/cmm) Date Value 07/20/2019 8.01 06/24/2019 7.31 06/24/2019 7.09 Vancomycin Levels: Vancomycin,Random (mg/L) Date/Time Value 06/11/2019 1535 16.7 Debra Wilcox, Research Project Manager [facility] PLAN OF CARE O ID: [id number] Author: Jace Carrasco (Pharmacist) Service: Pharmacy Author Type: Pharmacist Type: Plan of Care Filed: 07/25/2019 1:57 PM Note Text: MEDICATION RECONCILIATION Patient Name:Liliam Cantor : 1975 Reconciliation: Yes All [employer] medications addressed by LIP Additional comments: I agree with the notes and data below, having edited where needed. JACE CARRASCO, PHARMACIST July 25, 2019 1:57 PM MEDICATION HISTORY Patient Name:Liliam Cantor : 1975 Source of history:assisted/Other MAR - [place] Medication Nonadherence Identified: No barriers noted The above information represents the best possible medication history: Yes Additional comments: I obtained a medication list from [facility] and updated the patient's [employer] medication list accordingly. [id number] Medication List Adjustments: Medication Regimen Changes: None Medications Added: Novolin N Nystatin cream Doxycycline hyclate 100mg tablets Medications Removed: naloxone 4 mg/actuation nasal spray (NARCAN) Discontinued by another Health Care Provider insulin NPH (HumuLIN N,NovoLIN N) pen Discontinued by another Health Care Provider insulin lispro (HUMALOG KWIKPEN) 100 unit/mL pen Discontinued by another Health Care Provider aspirin, enteric coated (ADULT LOW DOSE ASPIRIN) 81 mg EC tablet Discontinued by another Health Care Provider Short-Term Medications: Doxycycline hyclate 100mg tablets: For 4 weeks. Course initiated on 07/19/2019. Further Clarification Required: None Patient is a 30 day readmission: Yes. Description: Last admitted to [address] on 06/21/2019 for osteomyelitis of left distal tibia. Patient Interested in Bedside Delivery: No Patient is from a nursing facility. Time Spent Reviewing Patient's Medications: 45 minutes Allergies: ALLERGIES No Known Allergies Preferred Pharmacy: N/A Patient is from a nursing facility. Current [employer] Medications: Prior to Admission medications as of 07/16/19 1309 Medication Sig Last Dose Taking doxycycline (VIBRA-TABS) 100 mg tablet Take 100 mg by mouth twice daily. For 4 weeks. Course initiated on 07/19/2019. Yes bisacodyl (DULCOLAX) 10 mg supp 10 mg by RECTAL route once daily as needed for Constipation. If no results from MOM. Yes methadone (DOLOPHINE) 10 mg tablet Take 10 mg by mouth every 12 hours. Yes polyethylene glycol 3350 (MIRALAX, GLYCOLAX) 17 gram packet Take 17 g by mouth once daily. With 4 ounces of water. Yes insulin regular human (NOVOLIN R,HUMULIN R) 100 unit/mL injection Inject 20 Units subcutaneously twice daily before meals. Yes nystatin (MYCOSTATIN) cream Apply 1 application to scrotum topically two times daily for redness. Yes metoclopramide HCl (REGLAN) 5 mg tablet Take 5 mg by mouth before meals and at bedtime. Yes insulin lispro (HUMALOG KWIKPEN) 100 unit/mL inpn Inject 8 Units subcutaneously w MEALS. Yes DULoxetine (CYMBALTA) 20 mg capsule Take 1 capsule by mouth once daily. Yes acetaminophen (TYLENOL) 325 mg tablet Take 650 mg by mouth every 6 hours as needed for Pain or Fever. Yes bisacodyl EC (DULCOLAX, BISACODYL,) 5 mg EC tablet Take 5 mg by mouth once daily as needed for Constipation. Yes lisinopril (ZESTRIL, PRINIVIL) 10 mg tablet Take 10 mg by mouth once daily. Yes pregabalin (LYRICA) 100 mg capsule Take 100 mg by mouth three times daily. Yes magnesium hydroxide (MOM) 400 mg/5 mL suspension Take 30 mL by mouth every 12 hours as needed for Constipation. Yes ondansetron (ZOFRAN) 4 mg tablet Take 4 mg by mouth every 6 hours as needed (nausea). Yes senna (SENNA) 8.6 mg tab Take 17.2 mg by mouth twice daily. Yes ibuprofen (MOTRIN) 400 mg tablet Take 400 mg by mouth every 6 hours as needed (general discomfort). Yes enoxaparin (LOVENOX) 40 mg/0.4 mL syrg Inject 40 mg subcutaneously every 24 hours. Prophylactic for prevention of DVT. Yes pantoprazole DR (PROTONIX) 40 mg tablet Take 40 mg by mouth once daily. Yes Tatum Lynn (Remedial Project Manager) Pager: [phone] [facility] Phone: [phone] July 20, 2019 11:30 AM Normal [facility] Urinalysis Routineon 020 Bacteria LM.HPF (Urine sed) [#/Area] NONE Normal None [facility] Comment on above: Performed By: #### P 8 #### [place] [address] Ep Cells Urine 0.2 /hpf Normal 0.0-5.0 [facility] Comment on above: Performed By: #### P 8 #### [place] [address] Hyaline Cast 0.7 /lpf Normal 0.0-1.0 [facility] Comment on above: Performed By: #### P 8 #### [place] [address] RBC LM.HPF (Urine sed) [#/Area] 0.8 /[HPF] Normal 0.0-5.0 [facility] Comment on above: Performed By: #### P 8 #### [facility] [address] [place] [address] WBC LM.HPF (Urine sed) [#/Area] 0.3 /[HPF] Normal 0.0-5.0 [facility] Comment on above: Performed By: #### P 8 #### [facility] [address] [place] [address] Appearance (U) CLEAR Normal [facility] Comment on above: Performed By: #### P 8 #### [facility] [address] [place] [address] Bilirubin (U) [Mass/Vol] Negative Normal Negative [facility] Comment on above: Performed By: #### P 8 #### [place] [address] Color (U) YELLOW Normal [facility] Comment on above: Performed By: #### P 8 #### [facility] [address] [place] [address] Glucose Ql (U) 100 mg/dL Abnormal Negative [facility] Comment on above: Performed By: #### P 8 #### [facility] [address] [place] [address] Hemoglobin,Urine Negative Normal Negative [facility] Comment on above: Performed By: #### P 8 #### [place] [address] Ketone Urine Negative Normal Negative [facility] Comment on above: Performed By: #### P 8 #### [facility] [address] [place] [address] Leukocytes Esterase Negative Normal Negative [facility] Comment on above: Performed By: #### P 8 #### [facility] [address] [place] [address] Nitrites Urine Negative Normal Negative [facility] Comment on above: Performed By: #### P 8 #### [place] [address] pH (U) 6.5 [pH] Normal 5.0-8.0 [facility] Comment on above: Performed By: #### P 8 #### [facility] [address] [place], [place] [address] Protein (U) [Mass/Vol] Negative Normal Negative [facility] Comment on above: Performed By: #### P 8 #### [facility] [address] [place], [place] [address] Specific [place], Ur 1.011 Normal 1.005-1.030 [facility] Comment on above: Performed By: #### P 8 #### [facility] [address] [place], [place] [address] Urobilinogen,Ur 0.2 EU/dL Normal 0.2-1.0 [facility] Comment on above: Performed By: #### P 8 #### [facility] [address] [place], [place] [address] PROGRESSon 07-16-2019 PROGRESS HNO ID: [id number] Author: Jayy Vogel Service: ? Author Type: Physician Type: Progress Notes Filed: 07/16/2019 1:16 PM Note Text: ORTHOPAEDIC OFFICE NOTE CHIEF COMPLAINT: left below knee amputation HISTORY OF PRESENT ILLNESS: Tori Cantor is a 44 year old male who presents for post-operative evaluation of a left below knee amputation performed 06/24/2019 after a progressive course of tibial osteomyelitis secondary to recurrent trimalleolar ankle fracture-dislocations secondary to noncompliance with weight bearing. Performing mobility rehab at [facility]. Notes general pain in the extremity with high tolerance secondary to longstanding illicit drug abuse. No fevers chills nausea or vomiting. Recently admitted to outside hospital for gastroparesis. No new chest pain or shortness of breath. Has been wearing RRD, does not know his follow-up schedule with prosthesis company. Reviewed nursing note and current pain scale. PAST MEDICAL HISTORY Diagnosis Date - Diabetes (HCC) - DKA (diabetic ketoacidosis) (HCC) 08/2014 - Hyperglycemia 05/27/2019 - Hypertension - IVDU (intravenous drug user) 05/27/2019 - Lactose intolerance 07/30/2016 - Left ankle joint deformity 05/27/2019 - Pancreatitis 08/2014 - Tobacco abuse 05/27/2019 - Trimalleolar fracture of left ankle PAST SURGICAL HISTORY Procedure Laterality Date - IR VASCULAR ACCESS TEAM PICC INSERTION RADIO 06/17/2019 - NONE FAMILY HISTORY Problem Relation Age of Onset - Hypertension Mother - Diabetes Mother - Stroke Mother - Heart Mother CHF - Cataract Mother - Hypertension Father - COPD Father - Emphysema Father Social History Tobacco Use - Smoking status: Current Every Day Smoker Packs/day: 1.00 Types: Cigarettes - Smokeless tobacco: Never Used Substance Use Topics - Alcohol use: Yes Comment: socially - Drug use: Never Types: Cocaine, Amphetamines Comment: hist of cocaine and marajuana use, fentanyl MEDICATIONS: Current Outpatient Medications Medication Sig - insulin lispro (HUMALOG KWIKPEN) 100 unit/mL inpn Inject 8 Units subcutaneously w MEALS. - insulin lispro (HUMALOG KWIKPEN) 100 unit/mL pen Inject 0-5 Units subcutaneously w MEALS. - insulin NPH (HumuLIN N,NovoLIN N) pen Inject 20 Units subcutaneously twice daily. - DULoxetine (CYMBALTA) 20 mg capsule Take 1 capsule by mouth once daily. - acetaminophen (TYLENOL) 325 mg tablet Take 650 mg by mouth every 6 hours as needed (mild pain). - bisacodyl EC (DULCOLAX, BISACODYL,) 5 mg EC tablet Take 5 mg by mouth once daily as needed for Constipation. - lisinopril (ZESTRIL, PRINIVIL) 10 mg tablet Take 10 mg by mouth once daily. - pregabalin (LYRICA) 100 mg capsule Take 100 mg by mouth three times daily. - magnesium hydroxide (MOM) 400 mg/5 mL suspension Take 30 mL by mouth once daily as needed for Constipation. - naloxone 4 mg/actuation nasal spray (NARCAN) Use 1 spray alternating nostrils every 2 minutes as needed for anxiety. - ondansetron (ZOFRAN) 4 mg tablet Take 4 mg by mouth every 6 hours as needed (nausea). - senna (SENNA) 8.6 mg tab Take 17.2 mg by mouth twice daily. - ibuprofen (MOTRIN) 400 mg tablet Take 400 mg by mouth every 6 hours as needed. - polyethylene glycol 3350 (MIRALAX) 17 gram/dose powder Take 17 g by mouth twice daily. - enoxaparin (LOVENOX) 40 mg/0.4 mL syrg Inject 40 mg subcutaneously every 24 hours. - pantoprazole DR (PROTONIX) 40 mg tablet Take 40 mg by mouth once daily. - aspirin, enteric coated (ADULT LOW DOSE ASPIRIN) 81 mg EC tablet Take 1 tablet by mouth twice daily for 14 days. - methadone (DOLOPHINE) 10 mg tablet Take 1 tablet by mouth twice daily for 7 days. No current facility-administered medications for this visit. ALLERGIES: ALLERGIES No Known Allergies PHYSICAL EXAMINATION: Resp 17 Ht 5' 9 (1.75m) Wt 155 lb (70.3kg) BMI 22.88 kg/(m2). General Appearance: Well appearing, alert, in no acute distress, well-hydrated, well nourished. Skin: Skin color, texture, turgor normal, no suspicious rashes or lesions. Extremities: Left leg surgical site healing well. Global hyperemia about incision with no areas of palpable fluctuance. Left thigh and stump compartments soft and compressible. Able to flex and extend knee actively. Peripheral Pulses: Normal. Neurologic: Intact light touch sensation left lower extremity. IMAGES: No results found for this or any previous visit (from the past 36 hour(s)). ASSESSMENT AND PLAN: 1. History of left below knee amputation (HCC) - ICD9: V49.75, ICD10: Z89.512 Functional Plan: Non-weight bearing left lower extremity until complete incision healing and remodeling of stump. Assistance Devices: Currently in RRD, will have office confirm follow-up with [facility] as unclear whether his facility has scheduled for him. Physical/Occupational Therapy: As above. Wound Care: Removed all vinh left lower extremity. Recommended daily soap and water washes incision. Pain Control: No change in pain regimen recommended this office visit. Reviewed with patient that orthopaedics will not manage narcotic pain medication given history, and he is encouraged to use [id number] medication only for pain control. Fragility Fracture: Not applicable. Additional: None. Return in about 6 weeks (around 08/25/2019). Jayy Vogel MD [facility] CNBRUNOon 07-14-2019 [facility] Office Visit (AGPOB1 ) ----- TORI CATNOR ([id number]) 1975 M Date Time Provider Department 07/14/19 9:30 AM JAYY VOGEL During your visit today, we recorded the following information about you: Respiration Weight Height 17/minute 70.3 kg 1.753 m Jayy Vogel MD 07/14/2019 10:08 AM Signed Needs follow-up with [facility] . Jayy Vogel MD 07/16/2019 1:16 PM Signed ORTHOPAEDIC OFFICE NOTE CHIEF COMPLAINT: left below knee amputation HISTORY OF PRESENT ILLNESS: Tori Cantor is a 44 year old male who presents for post-operative evaluation of a left below knee amputation performed 06/24/2019 after a progressive course of tibial osteomyelitis secondary to recurrent trimalleolar ankle fracture-dislocations secondary to noncompliance with weight bearing. Performing mobility rehab at SNF. Notes general pain in the extremity with high tolerance secondary to longstanding illicit drug abuse. No fevers chills nausea or vomiting. Recently admitted to outside hospital for gastroparesis. No new chest pain or shortness of breath. Has been wearing RRD, does not know his follow-up schedule with prosthesis company. Reviewed nursing note and current pain scale. 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 - Pancreatitis 08/2014 - Tobacco abuse 05/27/2019 - Trimalleolar fracture of left ankle PAST SURGICAL HISTORY Procedure Laterality Date - IR VASCULAR ACCESS TEAM PICC INSERTION RADIO 06/17/2019 - NONE FAMILY HISTORY Problem Relation Age of Onset - Hypertension Mother - Diabetes Mother - Stroke Mother - Heart Mother CHF - Cataract Mother - Hypertension Father - COPD Father - Emphysema Father Social History Tobacco Use - Smoking status: Current Every Day Smoker Packs/day: 1.00 Types: Cigarettes - Smokeless tobacco: Never Used Substance Use Topics - Alcohol use: Yes Comment: socially - Drug use: Never Types: Cocaine, Amphetamines Comment: hist of cocaine and marajuana use, fentanyl MEDICATIONS: Current Outpatient Medications Medication Sig - insulin lispro (HUMALOG KWIKPEN) 100 unit/mL inpn Inject 8 Units subcutaneously w MEALS. - insulin lispro (HUMALOG KWIKPEN) 100 unit/mL pen Inject 0-5 Units subcutaneously w MEALS. - insulin NPH (HumuLIN N,NovoLIN N) pen Inject 20 Units subcutaneously twice daily. - DULoxetine (CYMBALTA) 20 mg capsule Take 1 capsule by mouth once daily. - acetaminophen (TYLENOL) 325 mg tablet Take 650 mg by mouth every 6 hours as needed (mild pain). - bisacodyl EC (DULCOLAX, BISACODYL,) 5 mg EC tablet Take 5 mg by mouth once daily as needed for Constipation. - lisinopril (ZESTRIL, PRINIVIL) 10 mg tablet Take 10 mg by mouth once daily. - pregabalin (LYRICA) 100 mg capsule Take 100 mg by mouth three times daily. - magnesium hydroxide (MOM) 400 mg/5 mL suspension Take 30 mL by mouth once daily as needed for Constipation. - naloxone 4 mg/actuation nasal spray (NARCAN) Use 1 spray alternating nostrils every 2 minutes as needed for anxiety. - ondansetron (ZOFRAN) 4 mg tablet Take 4 mg by mouth every 6 hours as needed (nausea). - senna (SENNA) 8.6 mg tab Take 17.2 mg by mouth twice daily. - ibuprofen (MOTRIN) 400 mg tablet Take 400 mg by mouth every 6 hours as needed. - polyethylene glycol 3350 (MIRALAX) 17 gram/dose powder Take 17 g by mouth twice daily. - enoxaparin (LOVENOX) 40 mg/0.4 mL syrg Inject 40 mg subcutaneously every 24 hours. - pantoprazole DR (PROTONIX) 40 mg tablet Take 40 mg by mouth once daily. - aspirin, enteric coated (ADULT LOW DOSE ASPIRIN) 81 mg EC tablet Take 1 tablet by mouth twice daily for 14 days. - methadone (DOLOPHINE) 10 mg tablet Take 1 tablet by mouth twice daily for 7 days. No current facility-administered medications for this visit. ALLERGIES: ALLERGIES No Known Allergies PHYSICAL EXAMINATION: Resp 17 Ht 5' 9 (1.75m) Wt 155 lb (70.3kg) BMI 22.88 kg/(m2). General Appearance: Well appearing, alert, in no acute distress, well-hydrated, well nourished. Skin: Skin color, texture, turgor normal, no suspicious rashes or lesions. Extremities: Left leg surgical site healing well. Global hyperemia about incision with no areas of palpable fluctuance. Left thigh and stump compartments soft and compressible. Able to flex and extend knee actively. Peripheral Pulses: Normal. Neurologic: Intact light touch sensation left lower extremity. IMAGES: No results found for this or any previous visit (from the past 36 hour(s)). ASSESSMENT AND PLAN: 1. History of left below knee amputation (HCC) - ICD9: V49.75, ICD10: Z89.512 Functional Plan: Non-weight bearing left lower extremity until complete incision healing and remodeling of stump. Assistance Devices: Currently in RRD, will have office confirm follow-up with [facility] as unclear whether his facility has scheduled for him. Physical/Occupational Therapy: As above. Wound Care: Removed all vinh left lower extremity. Recommended daily soap and water washes incision. Pain Control: No change in pain regimen recommended this office visit. Reviewed with patient that orthopaedics will not manage narcotic pain medication given history, and he is encouraged to use [id number] medication only for pain control. Fragility Fracture: Not applicable. Additional: None. Return in about 6 weeks (around 08/25/2019). Jayy Vogel MD Referring Provider: BYRON MUNOZ [[id number]] Allergies As of Date: 07/14/2019 (No Known Allergies) Date Reviewed: 07/14/2019 Reviewed by: Alma Delia Morton (Tech) - Fully Assessed Reason for Visit: Follow Up [171] Primary Visit Diagnosis:History of left below knee amputation (HCC) [Z89.512] Prescriptions as of 07/14/2019 Sig: INSULIN LISPRO (U-100) 100 UN* Inject 8 Units subcutaneously* INSULIN LISPRO 100 UNIT/ML DAMICO* Inject 0-5 Units subcutaneous* INSULIN NPH ISOPHANE U-100 HU* Inject 20 Units subcutaneousl* DULOXETINE 20 MG CAPSULE,MIRIAM* Take 1 capsule by mouth once * ACETAMINOPHEN 325 MG TABLET Take 650 mg by mouth every 6 * BISACODYL 5 MG TABLET,DELAYED* Take 5 mg by mouth once daily* LISINOPRIL 10 MG TABLET Take 10 mg by mouth once nohemy* PREGABALIN 100 MG CAPSULE Take 100 mg by mouth three ti* MAGNESIUM HYDROXIDE 400 MG/5 * Take 30 mL by mouth once nohemy* NALOXONE 4 MG/ACTUATION NASAL* Use 1 spray alternating nostr* ONDANSETRON HCL 4 MG TABLET Take 4 mg by mouth every 6 ho* SENNA 8.6 MG TABLET Take 17.2 mg by mouth twice d* IBUPROFEN 400 MG TABLET Take 400 mg by mouth every 6 * POLYETHYLENE GLYCOL 3350 17 G* Take 17 g by mouth twice nohemy* ENOXAPARIN 40 MG/0.4 ML SUBCU* Inject 40 mg subcutaneously e* PANTOPRAZOLE 40 MG TABLET,DEL* Take 40 mg by mouth once nohemy* ASPIRIN 81 MG TABLET,DELAYED * Take 1 tablet by mouth twice * METHADONE 10 MG TABLET Take 1 tablet by mouth twice * Problem List As Of Date 07/14/2019 Noted Resolved Uncontrolled type 1 diabetes mellitus mild nonp*11/23/1985 Hypertension [I10] 11/23/2009 Abdominal pain, right lower quadrant [R10.31] 11/23/2009 01/25/2016 Abdominal pain, left lower quadrant [R10.32] 11/23/2009 01/25/2016 GERD (gastroesophageal reflux disease) [K21.9] 01/25/2016 Microalbuminuria [R80.9] 01/25/2016 History of diabetic gastroparesis [Z86.39] 01/25/2016 Diabetic polyneuropathy associated with type 1 *01/25/2016 More... Depression with anxiety [F41.8] 01/25/2016 Lactose intolerance [E73.9] 07/30/2016 02/14/2017 Charcot's joint of right foot [M14.671] 11/11/2016 Obesity [E66.9] 02/11/2017 04/05/2018 Hyperlipidemia [E78.5] 02/14/2017 Hep C w/o coma, chronic (HCC) [B18.2] 09/29/2018 More... Moderate episode of recurrent major depressive *09/02/2018 09/29/2018 History of drug abuse in remission [F19.11] 09/29/2018 IVDU (intravenous drug user) [F19.90] 05/27/2019 Tobacco abuse [Z72.0] 05/27/2019 Left ankle joint deformity [M21.962] 05/27/2019 Hyperglycemia [R73.9] 05/27/2019 Nicotine use disorder, F17.2 [F17.200] 05/31/2019 Closed fracture of left ankle [S82.892A] 06/02/2019 Sepsis (HCC) [A41.9] 06/09/2019 Closed trimalleolar fracture of left ankle [S82*06/21/2019 Acute osteomyelitis involving lower leg, left (*06/27/2019 History of left below knee amputation (HCC) [Z8*07/14/2019 Other instructions from your clinician: Needs follow-up with [facility] . Disposition: Return in about 6 weeks (around 08/25/2019). Follow-up and Disposition History Recorded Encounter Status:Closed by JAYY VOGEL MD on 07/16/19 [facility] Basic Metabolic PanelOrdered By: Marie London on 07-09-2019 Anion gap [Moles/Vol] 8 mmol/L [facility] Work Phone: Calcium [Mass/Vol] 8.9 mg/dL 8.4 - 10. 4 mg/dL [facility] Work Phone: Chloride [Moles/Vol] 97 mmol/L Low 98 - 10 7 mmol/L [facility] Work Phone: CO2 [Moles/Vol] 29 mmol/L 22 - 30 mmol/L [facility] Work Phone: Creatinine [Mass/Vol] 0.72 mg/dL 0.52 - 1.25 mg/dL [facility] Work Phone: EGFR IF NonAfrican Cambodian >60.0 >60 mL/min [facility] Work Phone: Comment on above: Source- MDRD equatio n with creatinine calibration to IDMS(NKDEP) eGFR not recommended for drug dose adjustment GFR/1.73 sq M.predicted among blacks MDRD (S/P/Bld) [Vol rate/Area] mL/min/{1.73_m2} >60 mL/min [facility] Work Phone: Glucose [Mass/Vol] 315 mg/dL High 70 - 100 mg/dL [facility] Work Phone: Interpretation and review of laboratory results Abnormal [facility] Work Phone: [phone] 222 Potassium [Moles/Vol] 4.8 mmol/L 3.5 - 5.1 mmol/L [facility] Work Phone: [phone]) 222 Sodium [Moles/Vol] 135 mmol/L 135 - 145 mmol/L [facility] Work Phone: [phone] Urea nitrogen [Mass/Vol] 16 mg/dL 7 - 20 mg/dL [facility] Work Phone: 1 Test Performed by [facility], [address] [place] [address] [place], [place] [address] [facility] Work Phone: [phone] Hemogram (CBC) w/Auto DiffOr dered By: Marie London on 07-09-2019 Absolute Baso # 0.2 10*3/uL 0 - 0.2 10*3/uL [facility] Work Phone: [phone]) Absolute Neut # 2.1 10*3/uL 1.8 - 7 10*3/uL [facility] Work Phone: ) 222 Basophils/100 WBC (Bld) 3.9 % High 0 - 2 % [facility] Work Phone: [phone]) 222 Eosinophils (Bld) [#/Vol] 0.1 10*3/uL 0 - 0.5 10*3/uL [facility] Work Phone: [phone]) 222 Eosinophils/100 WBC (Bld) 1.7 % 1 - 6 % [facility] Work Phone: [phone] Erythrocyte distribution width (RBC) [Ratio] 14.7 % High 11.5 - 14.5 % [facility] Work Phone: ) 222 Granulocytes/100 WBC (Bld) 49.9 % 40 - 80 % [facility] Work Phone: [phone]) 222 Hematocrit (Bld) [Volume fraction] 28.2 % Low 40 - 52 % [facility] Work Phone: ) 222 Hemoglobin (Bld) [Mass/Vol] 9.2 g/dL Low 13 - 18 g/dL [facility] Work Phone: [phone] Interpretation and review of laboratory results Abnormal [facility] Work Phone: [phone]) 222 Lymphocytes (Bld) [#/Vol] 1.2 10*3/uL 1 - 4.3 10*3/uL [facility] Work Phone: [phone] Lymphocytes/100 WBC (Bld) 27.8 % 20 - 40 % [facility] Work Phone: [phone] MCH (RBC) [Entitic mass] 27.9 pg 26 - 34 pg [facility] Work Phone: [phone] MCHC 32.7 % 32 - 36 % [facility] Work Phone: [phone] MCV (RBC) [Entitic vol] 85.1 fL 80 - 98 fL [facility] Work Phone: [phone] Monocytes (Bld) [#/Vol] 0.7 10*3/uL 0 - 0.8 10*3/uL [facility] Work Phone: [phone] Monocytes/100 WBC (Bld) 16.7 % High 2 - 10 % [facility] Work Phone: [phone] Platelet mean volume (Bld) [Entitic vol] 8.0 fL 7.4 - 10.4 fL [facility] Work Phone: [phone] Platelets (Bld) [#/Vol] 357 10*3/uL 140 - 440 10*3/uL [facility] Work Phone: [phone] RBC (Bld) [#/Vol] 3.31 10*6/uL Low 4.4 - 5.9 10*6/uL [facility] Work Phone: [phone] WBC (Bld) [#/Vol] 4.2 10*3/uL 3.6 - 10.7 10*3/uL [facility] Work Phone: [phone] Test Performed by [facility], [address] [place] [address] [facility] Work Phone: [phone] POCT GlucoseOrdered By: Az London on 07-09-2019 Glucose [Mass/Vol] 136 mg/dL High 70 - 100 mg/dL [facility] Work Phone: [phone] Comment on above: Test performed by gl ucose meter. Results may be 10%-15% lower than serum/plasma values. (CLIA ID [id number]) Interpretation and review of laboratory results Abnormal [facility] Work Phone: Test Performed by [facility], [address] [place], [place] [address] [facility] Work Phone: [phone] POCT GlucoseOrdered By: Bandar Luevano on 07-09-2019 Glucose [Mass/Vol] 68 mg/dL Low 70 - 100 mg/dL [facility] Work Phone: Comment on above: Test performed by gl ucose meter. Results may be 10%-15% lower than serum/plasma values. (CLIA ID [id number]) Interpretation and review of laboratory results Abnormal [facility] Work Phone: [phone] Test Performed by [facility], [address] [place] [address] [facility] Work Phone: [phone] Glucose [Mass/Vol] 62 mg/dL Low 70 - 100 mg/dL [facility] Work Phone: [phone] Comment on above: Test performed by gl ucose meter. Results may be 10%-15% lower than serum/plasma values. (CLIA ID [id number]) Interpretation and review of laboratory results Abnormal [facility] Work Phone: [phone] Test Performed by [facility], [address] [place] [address] [facility] Work Phone: [phone] Glucose [Mass/Vol] 307 mg/dL High 70 - 100 mg/dL [facility] Work Phone: [phone] Comment on above: Test performed by gl ucose meter. Results may be 10%-15% lower than serum/plasma values. (CLIA ID [id number]) Interpretation and review of laboratory results Abnormal [facility] Work Phone: [phone] Test Performed by [facility], [address] [place] [address] [facility] Work Phone: [phone] ABDOMEN (KUB) (SINGLE AP VIEW)Ordered By: Marie London on 07-09-2019 Patient Name: TORI CANTOR ---Diagnostic Radiology--- Exam Date/Time 07/09/2019 05:18:51 EST Exam CR Abdomen AP Ordering Physician MARIE FAROOQ Accession Number [id number] CPT4 Codes 87163 () Reason For Exam constipation Report ABDOMEN: CLINICAL INDICATION: Constipation. TECHNIQUE: Supine AP view of abdomen and pelvis. COMPARISON: None. FINDINGS: There is fecal residual residue throughout the colon consistent with constipation. The bowel gas pattern is unremarkable. No renal or ureteral calculi. There is no organomegaly. Lumbar spine is unremarkable. Left femoral femoral neck sclerotic focus likely represents bone island. IMPRESSION: Constipation. Left femoral neck bone island. Report Dictated on Workstation: [id number] --- Final --- Dictating Physician: MARIE AGUERO DO, I Signed Date and Time: 07/09/2019 5:38 am Signed by: MARIE AGUERO DO, I Transcribed Date and Time: 07/09/2019 5:39 [facility] Work Phone: Juan Miguel, [facility] Incoming Rad[facility] Results From [facility] - 07/09/2019 5:39 AM EST Patient Name: TORI CANTOR ---Diagnostic Radiology--- Exam Date/Time 07/09/2019 05:18:51 EST Exam CR Abdomen AP Ordering Physician AryaYesenia ThomasCIRAMARIE DUMONT Accession Number [id number] CPT4 Codes 61161 () Reason For Exam constipation Report ABDOMEN: CLINICAL INDICATION: Constipation. TECHNIQUE: Supine AP view of abdomen and pelvis. COMPARISON: None. FINDINGS: There is fecal residual residue throughout the colon consistent with constipation. The bowel gas pattern is unremarkable. No renal or ureteral calculi. There is no organomegaly. Lumbar spine is unremarkable. Left femoral femoral neck sclerotic focus likely represents bone island. IMPRESSION: Constipation. Left femoral neck bone island. Report Dictated on Workstation: [id number] --- Final --- Dictating Physician: MARIE AGUERO DO, I Signed Date and Time: 07/09/2019 5:38 am Signed by: MARIE AGUERO DO, I Transcribed Date and Time: 07/09/2019 5:39 [facility] Work Phone: CASE MANAGEMon 06-28-2019 CASE MANAGEM HNO ID: [id number] Author: Adina AaronRn) MATT Turk Service: Care Management Author Type: Registered Nurse Type: Care Mgt Progress Note Filed: 06/28/2019 3:37 PM Note Text: CARE MANAGEMENT DISCHARGE NOTE SERVICE DATE: 06/28/2019 SERVICE TIME: 3:15 PM LOS: 7 days Admission Date: 06/21/2019 DISCHARGE ARRANGEMENT (list agency and phone number) alf facility: Was an expedited discharge program used? No Provider: [facility] CAREGIVER ASSESSMENT: Caregiver is ready, willing and able to meet the patient's needs as recommended by the inter-professional team? Yes Patient's transition needs and plan for meeting these needs: SNF Does the patient have an acute stroke diagnosis, or has the patient had a stroke during this admission? No HANDOFF COMMUNICATION: . TRANSPORTATION ARRANGEMENTS: Mode of Transportation: Ambulance Transportation Agency and Phone #: [facility] ( [facility] ) [phone] / [phone]. Date of Trip: 06/28/2019 Type of Service: BLS Non-emergency Is Patient Medicaid Pending: No Discussion of financial coverage occurred with Family . Rn Social Services Location: [facility] Room 52 Destination: [facility] Financial Care Management Responsibility: None Estimated Charge: . Approving Mechanical Process Engineer: . ADDITIONAL CONTACT RESOURCES: Patients fat Plan is to discharge to [facility]. historic sites supervisor time is 5pm. Patient is going to call his father and inform of discharge. [facility] transport is set up for 5pm. SIGNATURE: Adina Turk RN PATIENT NAME: Tori Cantor DATE: June 28, 2019 TIME: 3:15 PM PAGER/CONTACT #: [phone] [facility] CONSULT PROGon 06-28-2019 CONSULT PROG HNO ID: [id number] Author: Lucita Del Real Service: Endocrinology Author Type: Physician Type: Consult Progress Note Filed: 07/15/2019 10:04 PM Note Text: ENDOCRINOLOGY CONSULT PROGRESS NOTE SERVICE DATE: 06/28/2019 SERVICE TIME: 11:33 AM Subjective INTERVAL HPI: Following for DM type 1. Was initially adm with left ankle fracture after a fall, has left leg infection, cellulitis. Was discharged 06/20 on NPH 20 units bid and Humalog 10 units qac; now readmitted and is NPH 20 units bid and Humalog 8 units qac tid plus correction. Notes and orders reviewed. Readmitted with redislocation of the tibiotalar joint and worsening fracture displacement; s/p left BKA on 06/24. C/o left leg pain; no nausea, c/o dry mouth. DIET CARBOHYDRATE CONTROLLED fair po intake, on Boost bid (lunch/dinner) Recent Labs 06/28/19 1041 06/28/19 0632 06/27/19 2140 06/26/19 0112 GLUC -- -- -- -- 84 GLUCOSEMETER 243* 84 208* < > -- < > = values in this interval not displayed. Current Facility-Administered Medications Medication Dose Route Frequency - pregabalin 100 mg cap(s) (LYRICA) 100 mg ORAL TID - lisinopril 10 mg tab(s) (ZESTRIL, PRINIVIL) 10 mg ORAL DAILY - pantoprazole DR 40 mg tab(s) (PROTONIX) 40 mg ORAL DAILY - DULoxetine 20 mg cap(s) (CYMBALTA) 20 mg ORAL DAILY - NaCl 0.9% 2-10 mL 2-10 mL INTRAVENOUS q 12 H - acetaminophen 650 mg tab(s) (TYLENOL) 650 mg ORAL q 6 H PRN - dextrose 40 % 15 g 15 g ORAL PRN Or - glucagon 1 mg injection (GLUCAGEN) 1 mg INTRAMUSCULAR PRN Or - dextrose 50 % 12.5 g injection 12.5 g INTRAVENOUS PRN - insulin lispro 8 Units pen (rapid acting) (HumaLOG KWIKPEN) 8 Units SUBCUTANEOUS w MEALS - insulin lispro 0-5 Units pen (rapid acting) (HumaLOG KWIKPEN) 0-5 Units SUBCUTANEOUS w MEALS - cyclobenzaprine 5-10 mg tab(s) (FLEXERIL) 5-10 mg ORAL q 8 H PRN - senna-docusate 8.6-50 mg 1 tablet (SENNA-S) 1 tablet ORAL BID - oxyCODONE IR 10-15 mg tab(s) (ROXICODONE) 10-15 mg ORAL q 3 H PRN - calcium carbonate 500 mg chewable tab(s) (TUMS) 500 mg ORAL BID PRN - methadone 10 mg tab(s) (DOLOPHINE) 10 mg ORAL BID - cephALEXin 500 mg cap(s) (KEFLEX) 500 mg ORAL q 12 H - insulin NPH human 16 Units injection pen (intermediate acting) (NovoLIN N, HumuLIN N) 16 Units SUBCUTANEOUS BID - aspirin 81 mg chewable tab(s) 81 mg ORAL BID Objective PHYSICAL EXAM: awake, alert; no distress Lungs : clear CVS: RRR Abd: soft, non tender Ext: left BKA stump has compression bandage, 1+ edema right leg/ankle BP 106/63 Pulse 98 Temp (Src) 98.4 (Oral) Resp 18 Ht 5' 9 (1.75m) Wt 155 lb (70.3kg) SpO2 95% BMI 22.88 kg/(m2). O2 Therapy: Room Air DATA: Diagnostic tests reviewed for today's visit: Most recent labs and imaging results. 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 Home Rx is Levemir 25 units bid and Novolog 14 units tid with SSI. Was on 70/30 from 03/09 till 05/18 (while incarcerated) Saw Camrelo in [place] in September,; insulin changed to NPH 20 units bid and humalog 10 units qac tid plus correction. Resumed NPH to 20 units bid and humalog 8 units qac tid plus correction; did not get NPH on 12 am as he was in surgery; was on D5% 1/2 NS at 50 cc/hour while NPO which was d/rl 12/ pm; BS high after OR on 06/24; had NPH 20 units, Humalog 6 units and 1 L of NS IV given. BS better, occ <100; cont Rx. Boost supplement ordered bid; decreased NPH to 16 units bid to avoid hypoglycemia on 06/27; cont rx ? Cellulitis/abscess left ankle, s/p debridement and external fixation of ankle fracture on 06/10. JOANNA normal. Went to OR again on 06/15 for debridement. Adm with redislocation of the tibiotalar joint and worsening fracture displacement; to OR again on 06/24. S/p left BKA on 06/24 per Ortho. ? IVDU (intravenous drug user) POA: Yes Assessment AND Plan: hx ? Closed fracture of left ankle POA: Yes Assessment AND Plan: trimalleolar, 4 weeks ago after a fall; with external fixator ? Abnormal thyroid function test; TSH 8.2 due to non-thyroidal illness; Low free T3 , free T4 normal at 1.3 and reverse T3 ok at 18; repeat TSH ? SIGNATURE: Lucita Del Real MD PATIENT NAME: Tori Cantor DATE: June 28, 2019 TIME: 11:34 AM PAGER: [phone] Normal [facility] Free Thyroxineon 06-28-2019 Free T4 [Mass/Vol] 1.17 ng/dL Normal 0.76-1.46 [facility] Comment on above: Performed By: #### P 8 #### [address] [address] Glucose Meteron 06-28-2019 Glucose [Mass/Vol] 317 mg/dL High 70-99 [facility] Comment on above: Result Comment: MATT Jones OTIFIED Performed By: #### U DRG2 #### [address] [address] PLAN OF CAREon 06-28-2019 PLAN OF CARE HNO ID: [id number] Author: José Miguel Toribio (Pharmacist) Service: Pharmacy Author Type: Pharmacist Type: Plan of Care Filed: 06/28/2019 3:22 PM Note Text: DISCHARGE MEDICATION REVIEW BY PHARMACY Patient Name: Tori Cantor Account #: Data Unavailable Admission Date: 06/21/2019 Date of Contact: June 28, 2019 Time of Contact: 3:20 PM Medication list was reviewed by a Pharmacist for drug interactions or drug related problems:Yes Below is a summary of pharmacist recommendations discussed with LIP: No Recommendations at this time from Discharge Medication List. Discharge disposition: SNF ([facility]) Jadyn García June 28, 2019 3:20 PM Pager: [phone] 06/28/2019 3:20 PM Medication List START taking these medications aspirin, enteric coated 81 mg EC tablet Commonly known as: ADULT LOW DOSE ASPIRIN Take 1 tablet by mouth twice daily for 14 days. cephALEXin 500 mg capsule Commonly known as: KEFLEX Take 1 capsule by mouth every 12 hours for 3 days. methadone 10 mg tablet Commonly known as: DOLOPHINE Take 1 tablet by mouth twice daily for 7 days. CHANGE how you take these medications acetaminophen 325 mg tablet Commonly known as: TYLENOL What changed: Another medication with the same name was removed. Continue taking this medication, and follow the directions you see here. cyclobenzaprine 5 mg tablet Commonly known as: FLEXERIL Take 1-2 tablets by mouth every 8 hours as needed for Muscle Spasm for up to 2 days. What changed: how much to take DULCOLAX (BISACODYL) 5 mg EC tablet Generic drug: bisacodyl EC What changed: Another medication with the same name was removed. Continue taking this medication, and follow the directions you see here. DULoxetine 20 mg capsule Commonly known as: CYMBALTA Take 1 capsule by mouth once daily. What changed: ? additional instructions ? Another medication with the same name was removed. Continue taking this medication, and follow the directions you see here. * insulin lispro 100 unit/mL Inpn Commonly known as: HumaLOG KWIKPEN Inject 8 Units subcutaneously w MEALS. What changed: ? how much to take ? how to take this ? when to take this ? additional instructions * insulin lispro 100 unit/mL pen Commonly known as: HumaLOG KWIKPEN Inject 0-5 Units subcutaneously w MEALS. What changed: ? medication strength ? how much to take ? how to take this ? when to take this ? additional instructions oxyCODONE IR 10 mg Tab Commonly known as: ROXICODONE Take 1-1.5 tablets by mouth every 4 hours as needed for up to 3 days. What changed: ? medication strength ? how much to take ? reasons to take this ? additional instructions ? Another medication with the same name was removed. Continue taking this medication, and follow the directions you see here. * This list has 2 medication(s) that are the same as other medications prescribed for you. Read the directions carefully, and ask your doctor or other care provider to review them with you. CONTINUE taking these medications ibuprofen 400 mg tablet Commonly known as: MOTRIN insulin NPH human 100 unit/mL (3 mL) Inpn injection pen Commonly known as: NovoLIN N, HumuLIN N Inject 20 Units subcutaneously twice daily. lisinopril 10 mg tablet Commonly known as: ZESTRIL, PRINIVIL LOVENOX 40 mg/0.4 mL Syrg Generic drug: enoxaparin magnesium hydroxide 400 mg/5 mL suspension Commonly known as: MOM naloxone 4 mg/actuation nasal spray ondansetron 4 mg tablet Commonly known as: ZOFRAN polyethylene glycol 3350 17 gram/dose powder Commonly known as: MIRALAX Take 17 g by mouth twice daily. pregabalin 100 mg capsule Commonly known as: LYRICA PROTONIX 40 mg tablet Generic drug: pantoprazole DR Mcgovern 8.6 mg Tab Generic drug: yimi STOP taking these medications ceFAZolin 2 gram/100 mL in dextrose (iso-osmotic) Commonly known as: ANCEF doxycycline monohydrate 100 mg tablet LANTUS SOLOSTAR U-100 INSULIN 100 unit/mL (3 mL) Inpn Generic drug: insulin glargine levoFLOXacin 750 mg tablet Commonly known as: LEVAQUIN PERCOCET 5-325 mg tablet Generic drug: oxyCODONE-acetaminophen Where to Get Your Medications [facility] [address] [place] [id number] [phone] [employer] - [phone] [facility] [address] [facility] [id number] ? cephALEXin 500 mg capsule ? cyclobenzaprine 5 mg tablet You can get these medications from any pharmacy Bring a paper prescription for each of these medications ? aspirin, enteric coated 81 mg EC tablet ? methadone 10 mg tablet ? oxyCODONE IR 10 mg Tab Normal [facility] PROGRESSon 06-28-2019 PROGRESS HNO ID: [id number] Author: Kenia Calvillo Service: Pain Management Author Type: Physician Type: Progress Notes Filed: 06/28/2019 12:52 PM Note Text: Name: TORI CANTOR Age: [age] year old PAIN MANAGEMENT: Left BKA /, hx left trimalleolar ankle francture; MSSA bacteremia with tibia/fibular osteomyelitis; IVDA Pain Description: Patient slept well, less phantom pain. Overall feels better 24H Pain Regimen: Tylenol 650 mg x 0 Flexeril 10 mg x 1 Cymbalta 20 mg daily Methadone 10 mg ?2 Oxycodone 15 mg ?6 Lyrica 100 mg 3 times a day ? 3 Interval HPI: stable overnight Antibiotic Therapy: Keflex Subjective HPI: 44yo male with history of IV drug abuse, 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 Patient was readmitted to orthopedic service with redislocation of the tibiotalar joint, exposed necrotic tibia and worsening fracture displacement. He underwent left BKA with removal of external fixator 06/24. Patient is known to our team from his recent admission 06/09?06/20 for MSSA bacteremia and osteomyelitis. He was discharged to SNF on oxycodone 5 mg #30 ? Prior to admission patient was taking Lyrica 100 mg by mouth 3 times a day. He smokes 1 pack per day. He denies alcohol. He does use marijuana infrequently. He states he had done street drugs for 30 years and then he last used a while ago. He has a history of IV cocaine and methamphetamine. He also admits to history of frequent IV fentanyl use. 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 2 06/15/2019 Oxycodone Hcl 5 MG Tablet 30.00 5 Mo Sca [id number] Pha ([id number]) 0 45.00 [facility] [place] 06/21/2019 2 06/21/2019 Pregabalin 100 MG Capsule 30.00 10 Pe Ailyn [id number] Pha ([id number]) 4 2.01 E [facility] [place] 06/06/2019 2 06/06/2019 Oxycodone-Acetaminophen 5-325 30.00 7 Pe Ailyn [id number] Pha ([id number]) 0 32.14 MME Private [facility] 06/06/2019 2 06/06/2019 Pregabalin 100 MG Capsule 30.00 10 Pe Ailyn [id number] Pha ([id number]) 4 2.01 E Private [facility] 06/01/2019 2 06/01/2019 Pregabalin 150 MG Capsule 30.00 15 Pe Ailyn [id number] Pha ([id number]) 4 2.01 [facility] Private [facility] 05/31/2019 2 05/31/2019 Oxycodone-Acetaminophen 5-325 6.00 1 Da Mil [id number] Pha ([id number]) 0 45.00 [facility] [place] Current Facility-Administered Medications Medication Dose Route Frequency Provider Last Rate Last Dose - methadone 10 mg tab(s) (DOLOPHINE) 10 mg ORAL BID Remy Masonus 10 mg at 06/28/19 0942 - cephALEXin 500 mg cap(s) (KEFLEX) 500 mg ORAL q 12 H Velvet Phelps 500 mg at 06/28/19 0942 - insulin NPH human 16 Units injection pen (intermediate acting) (NovoLIN N, HumuLIN N) 16 Units SUBCUTANEOUS BID Lucita Ciltea 16 Units at 06/28/19 0942 - aspirin 81 mg chewable tab(s) 81 mg ORAL BID Jayy Palmer Dinicola 81 mg at 06/28/19 0943 - oxyCODONE IR 10-15 mg tab(s) (ROXICODONE) 10-15 mg ORAL q 3 H PRN Jaqueline Ewingro 15 mg at 06/28/19 0943 - calcium carbonate 500 mg chewable tab(s) (TUMS) 500 mg ORAL BID PRN Clinton (Res) MD Ida 500 mg at 06/25/19 2218 - cyclobenzaprine 5-10 mg tab(s) (FLEXERIL) 5-10 mg ORAL q 8 H PRN Kenia K Scantling 10 mg at 06/27/19 0941 - senna-docusate 8.6-50 mg 1 tablet (SENNA-S) 1 tablet ORAL BID Kenia K Scantling 1 tablet at 06/28/19 0943 - insulin lispro 8 Units pen (rapid acting) (HumaLOG KWIKPEN) 8 Units SUBCUTANEOUS w MEALS Salina Midha 8 Units at 06/28/19 1103 - insulin lispro 0-5 Units pen (rapid acting) (HumaLOG KWIKPEN) 0-5 Units SUBCUTANEOUS w MEALS Jayy Palmer Dinicola 2 Units at 06/28/19 1103 - pregabalin 100 mg cap(s) (LYRICA) 100 mg ORAL TID Jayy Palmer Dinicola 100 mg at 06/28/19 0943 - lisinopril 10 mg tab(s) (ZESTRIL, PRINIVIL) 10 mg ORAL DAILY Jayy Palmer Dinicola 10 mg at 06/27/19 0946 - pantoprazole DR 40 mg tab(s) (PROTONIX) 40 mg ORAL DAILY Jayy Vogel 40 mg at 06/28/19 0942 - DULoxetine 20 mg cap(s) (CYMBALTA) 20 mg ORAL DAILY Jayy Vogel 20 mg at 06/28/19 0942 - NaCl 0.9% 2-10 mL 2-10 mL INTRAVENOUS q 12 H Jayy Palmer Dinicola 10 mL at 06/28/19 0900 - acetaminophen 650 mg tab(s) (TYLENOL) 650 mg ORAL q 6 H PRN Jayy Palmer Dinalberto 650 mg at 06/26/19 1956 - dextrose 40 % 15 g 15 g ORAL PRN Jayy Palmer Dinalberto Or - glucagon 1 mg injection (GLUCAGEN) 1 mg INTRAMUSCULAR PRN Jayy Palmer Dinalberto Or - dextrose 50 % 12.5 g injection 12.5 g INTRAVENOUS PRN Jayy Vgoel acetaminophen (TYLENOL) 325 mg tablet, Take 650 mg by mouth every 6 hours as needed (mild pain)., Disp: , Rfl: bisacodyl EC (DULCOLAX, BISACODYL,) 5 mg EC tablet, Take 5 mg by mouth once daily as needed for Constipation., Disp: , Rfl: lisinopril (ZESTRIL, PRINIVIL) 10 mg tablet, Take 10 mg by mouth once daily., Disp: , Rfl: pregabalin (LYRICA) 100 mg capsule, Take 100 mg by mouth three times daily., Disp: , Rfl: magnesium hydroxide (MOM) 400 mg/5 mL suspension, Take 30 mL by mouth once daily as needed for Constipation., Disp: , Rfl: naloxone 4 mg/actuation nasal spray (NARCAN), Use 1 spray alternating nostrils every 2 minutes as needed for anxiety., Disp: , Rfl: ondansetron (ZOFRAN) 4 mg tablet, Take 4 mg by mouth every 6 hours as needed (nausea)., Disp: , Rfl: senna (SENNA) 8.6 mg tab, Take 17.2 mg by mouth twice daily., Disp: , Rfl: insulin lispro (HUMALOG KWIKPEN INSULIN) 100 unit/mL inpn, Inject as per sliding scale subcutaneously before meals. If blood sugars are: 100-150 inject 2 unit(s). 151-200 inject 4 unit(s). 201-250 inject 6 unit(s). 251-300 inject 8 unit(s). 301-350 inject 10 unit(s). 351-400 inject 12 unit(s). 401-450 inject 14 unit(s). For blood glucose <70 or >500 call MD., Disp: , Rfl: ibuprofen (MOTRIN) 400 mg tablet, Take 400 mg by mouth every 6 hours as needed., Disp: , Rfl: polyethylene glycol 3350 (MIRALAX) 17 gram/dose powder, Take 17 g by mouth twice daily., Disp: , Rfl: enoxaparin (LOVENOX) 40 mg/0.4 mL syrg, Inject 40 mg subcutaneously every 24 hours., Disp: , Rfl: pantoprazole DR (PROTONIX) 40 mg tablet, Take 40 mg by mouth once daily. , Disp: , Rfl: , 05/26/2019 [DISCONTINUED] acetaminophen (TYLENOL) 325 mg tablet, Take 650 mg by mouth every 6 hours as needed for Fever., Disp: , Rfl: [DISCONTINUED] acetaminophen (TYLENOL) 325 mg tablet, Take 650 mg by mouth every 6 hours as needed (mild pain)., Disp: , Rfl: [DISCONTINUED] bisacodyl (DULCOLAX) 10 mg supp, 10 mg by RECTAL route once daily as needed for Constipation., Disp: , Rfl: [DISCONTINUED] cyclobenzaprine (FLEXERIL) 5 mg tablet, Take 5 mg by mouth every 8 hours as needed for Muscle Spasm., Disp: , Rfl: [DISCONTINUED] levoFLOXacin (LEVAQUIN) 750 mg tablet, Take 750 mg by mouth once daily. For 14 days. Course of therapy initiated on 06/09/2019. Scheduled to end on 06/23/2019., Disp: , Rfl: [DISCONTINUED] oxyCODONE IR (ROXICODONE) 5 mg immediate release tablet, Take 5 mg by mouth every 4 hours as needed for Pain. For 5 days. Course initiated on 06/21/2019. Scheduled to end on 06/26/2019., Disp: , Rfl: [DISCONTINUED] oxyCODONE IR (ROXICODONE) 5 mg immediate release tablet, Take 5 mg by mouth every 6 hours as needed (severe pain). For 5 days. Course initiated on 06/21/2019. Scheduled to end on 06/26/2019., Disp: , Rfl: [DISCONTINUED] oxyCODONE-acetaminophen (PERCOCET) 5-325 mg tablet, Take 1 tablet by mouth every 6 hours as needed for Pain., Disp: , Rfl: [DISCONTINUED] DULoxetine (CYMBALTA) 30 mg capsule, Take 30 mg by mouth once daily. For depression., Disp: , Rfl: [DISCONTINUED] doxycycline monohydrate 100 mg tablet, Take 100 mg by mouth twice daily. For 14 days. Course of therapy initiated on 06/09/2019. Scheduled to end on 06/23/2019., Disp: , Rfl: [DISCONTINUED] DULoxetine (CYMBALTA) 20 mg capsule, Take 20 mg by mouth once daily. For anxiety., Disp: , Rfl: [DISCONTINUED] insulin lispro (HUMALOG KWIKPEN INSULIN) 100 unit/mL inpn, Inject as per sliding scale subcutaneously before meals. If blood sugars are: 201-225 inject 4 unit(s). 226-250 inject 5 unit(s). 251-275 inject 6 unit(s). 276-300 inject 7 unit(s). 301-325 inject 8 unit(s). 326-350 inject 9 unit(s). 351-999 inject 10 unit(s) and notify provider., Disp: , Rfl: [DISCONTINUED] insulin NPH (HumuLIN N,NovoLIN N) pen, Inject 20 Units subcutaneously twice daily., Disp: , Rfl: [DISCONTINUED] insulin glargine (LANTUS SOLOSTAR U-100 INSULIN) 100 unit/mL (3 mL) inpn, Inject 24 Units subcutaneously twice daily., Disp: , Rfl: [DISCONTINUED] ceFAZolin (ANCEF) 2 gram/100 mL in dextrose (iso-osmotic), Inject 100 mL intravenously every 8 hours., Disp: 9000 mL, Rfl: 1, Unknown at Unknown time Social History Tobacco Use - Smoking status: Current Every Day Smoker Packs/day: 1.00 Types: Cigarettes - Smokeless tobacco: Never Used Substance Use Topics - Alcohol use: Yes Comment: socially - Drug use: Yes Types: Cocaine, Amphetamines Comment: hist of cocaine and marajuana use, fentanyl FAMILY HISTORY Problem Relation Age of Onset - Hypertension Mother - Diabetes Mother - Stroke Mother - Heart Mother CHF - Cataract Mother - Hypertension Father - COPD Father - Emphysema Father PAST SURGICAL HISTORY Procedure Laterality Date - IR VASCULAR ACCESS TEAM PICC INSERTION RADIO 06/17/2019 - NONE ROS: All of the following reviewed and negative except as noted below: GENERAL: no fever, chills, sweats, weight loss, fatigue, generalized weakness HEENT: no headache, vision changes, eye discomfort, hearing change, ear discomfort, sinus pain, nasal discharge or congestion, oral lesions, soreness, dental problem NECK: no adenopathy, discomfort, change in ROM CHEST: no shortness of breath, dyspnea on exertion, wheezing, cough, sputum production or chest pain HEART: no chest pain, palpitations, syncope ABDOMEN: no nausea, vomiting, constipation, diarrhea, abdominal pain : no dysuria, urgency, frequency, history of stones, incontinence NEURO: no confusion or alteration in consciousness, slurred speech, seizure, focal weakness EXTREMITIES: See HPI HEME: no new adenopathy, bruises, petechiae PSYCH: no depression, anxiety, agitation PAIN PSYCHIATRIC EXAM: GENERAL: alert, oriented to person, place, time JUDGMENT AND INSIGHT: intact APPEARANCE: neatly groomed DEMEANOR: coooperative, not hostile, mistrustful, preoccupied, or demanding ACTIVITY: normal, not hyperactive or hypoactive, no tremors, tics EYE CONTACT: normal SPEECH: normal, rate, volume, articulation, coherence, spontaneity MOOD: normal, without overt sadness, grief, anxiety, appropriate to situation IDEATION: normal and without suicidal or homicidal ideation MEMORY: intact PHYSICAL EXAMINATION: GENERAL: well nourished and developed; no acute distress; alert and oriented x 3; intact judgement and insight HEENT: no evidence of trauma; cranial nerves intact; eyes clear EOMI; no hearing deficits apparent; nasal passages unremarkable; throat and mucous membranes clear NECK: supple without lymphadenopathy; no JVD; no thyromegaly CHEST: clear bilaterally to auscultation; normal chest movement; no rales or rhonchi HEART: regular rate and rhythm, normal S1 and S2, no murmurs, clicks, rubs, or gallops ABDOMEN: soft; nondistended; bowel sounds present; no hepatomegaly; no splenomegaly; no tenderness EXTREMITIES: no evidence of clubbing; no cyanosis; no edema; left BKA NEURO: cranial nerves intact; no focal deficits; no confusion; no tremor; sensorium normal SKIN: no rash; no skin breakdown; no decubitus lesions HEME: no bruising; no adenopathy PSYCH: no evidence of depression; no anxiety; no agitation; no apparent hallucinations BP 106/63 Pulse 98 Temp 36.9 ?C (98.4 ?F) (Oral) Resp 18 Ht 175.3 cm (5' 9) Wt 70.3 kg (155 lb) SpO2 95% BMI 22.89 kg/m? BMI 22.89 kg/(m2) Date 06/24/19699 - 06/25/19 0659 Shift 0864-4862 9421-9737 2865-9133 24 Hour Total INTAKE IV 1000 1000 Shift Total 1000 1000 OUTPUT Shift Total Weight (kg) 70.3 70.3 70.3 70.3 Date 06/23/19699 - [birth year]/1959 06/24/19699 - 06/25/19 0659 Shift 8782-6578 7103-6216 4275-4018 24 Hour Total 7976-8470 5680-1746 1380-3492 24 Hour Total INTAKE PO 480 480 PO 480 480 IV 1000 1000 OR Crystalloid intake (mL) 1000 1000 Shift Total 672 399 2927 1000 OUTPUT Urine 828 6455 138 1898 Void (ml) 828 4720 791 6191 Urine Not Saved. 1 x 1 x Shift Total 828 3779 678 9907 Weight (kg) 70.3 70.3 70.3 70.3 70.3 70.3 70.3 70.3 ABNORMAL/NEW FINDINGS: NONE RADIOLOGY/DIAGNOSTICS: LABORATORY: CBC: No results for input(s): WBC, RBC, HB, HCT, PLT, MCV, MCH, MPV, RDW in the last 24 hours. CMP: No results for input(s): NA, K, CHLOR, CO2, BUN, CREAT, GLUC, TPROT, CA, MG, ALBUMIN, TBILI, ALKPHOS, ALT, AST, ANION in the last 24 hours. Heme: No results for input(s): RETICP, ABSRETIC, LD, VIKRAM, FE, TIBC, TRANSFERSAT in the last 24 hours. 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 (HCC) Hypertension Gerd (Gastroesophageal Reflux Disease) Microalbuminuria History of Diabetic Gastroparesis Diabetic Polyneuropathy Associated With Type 1 Diabetes Mellitus (Hcc) Depression With Anxiety Charcot's Joint of Right Foot Hyperlipidemia Hep C W/O Coma, Chronic (Hcc) History of Drug Abuse in Remission ([facility]) Ivdu (Intravenous Drug User) Tobacco Abuse Left Ankle Joint Deformity Hyperglycemia Nicotine use disorder, F17.2 Closed Fracture of Left Ankle Sepsis (Hcc) Closed Trimalleolar Fracture of Left Ankle Acute Osteomyelitis Involving Lower Leg, Left (Hcc) PLAN: 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 secondary to complications from left tri-malleoli are ankle fracture?dislocation, left tibia acute osteomyelitis and left leg soft tissue necrosis Challenging pain management with history of opiate dependence and polysubstance abuse Tylenol 650 mg every 6 hours when necessary Flexeril 10 mg by mouth 3 times a day when necessary Cymbalta 20 mg daily Continue trial methadone 10 mg every 12 hours- added 06/27 Oxycodone 10-15 milligram every 3 hours when necessary Lyrica 100 mg by mouth 3 times a day Senna S twice a day Anticipate return to ECF Methadone and oxycodone prescriptions placed in chart Kenia Calvillo MD [facility] PROGRESS HNO ID: [id number] Author: Donnell Garcia Service: Infectious Disease Author Type: Physician Type: Progress Notes Filed: 06/28/2019 4:25 PM Note Text: INFECTIOUS DISEASE PROGRESS NOTE Patient Name: Tori Cantor ASSESSMENT: 1.?Left ankle fracture/ dislocation with large area of necrotic skin, fascia and muscle s/p I and D on 06/15/2019?(MSSA) and now s/p removal spanning left ankle external fixator - S/P Left below knee amputation 06/24/2019 2. Left distal tibial osteomyelitis due to MSSA 3. High grade MSSA bacteremia?cleared 06/12, negative JOANNA 4. Type 1 diabetes- uncontrolled? PLAN: Continue PO Keflex x 3 days more till 07/01/2019 Remove PICC line prior to DC INTERVAL HISTORY: Afebrile. Left Phantom pain unchanged. Tolerating Keflex, no n/v/d/f/c. Surgical stump dressing in place D/C planned to Rehab MEDICATIONS: reviewed. Current Facility-Administered Medications Medication Dose Route Frequency - pregabalin 100 mg cap(s) (LYRICA) 100 mg ORAL TID - lisinopril 10 mg tab(s) (ZESTRIL, PRINIVIL) 10 mg ORAL DAILY - pantoprazole DR 40 mg tab(s) (PROTONIX) 40 mg ORAL DAILY - DULoxetine 20 mg cap(s) (CYMBALTA) 20 mg ORAL DAILY - NaCl 0.9% 2-10 mL 2-10 mL INTRAVENOUS q 12 H - acetaminophen 650 mg tab(s) (TYLENOL) 650 mg ORAL q 6 H PRN - dextrose 40 % 15 g 15 g ORAL PRN Or - glucagon 1 mg injection (GLUCAGEN) 1 mg INTRAMUSCULAR PRN Or - dextrose 50 % 12.5 g injection 12.5 g INTRAVENOUS PRN - insulin lispro 8 Units pen (rapid acting) (HumaLOG KWIKPEN) 8 Units SUBCUTANEOUS w MEALS - insulin lispro 0-5 Units pen (rapid acting) (HumaLOG KWIKPEN) 0-5 Units SUBCUTANEOUS w MEALS - cyclobenzaprine 5-10 mg tab(s) (FLEXERIL) 5-10 mg ORAL q 8 H PRN - senna-docusate 8.6-50 mg 1 tablet (SENNA-S) 1 tablet ORAL BID - oxyCODONE IR 10-15 mg tab(s) (ROXICODONE) 10-15 mg ORAL q 3 H PRN - calcium carbonate 500 mg chewable tab(s) (TUMS) 500 mg ORAL BID PRN - methadone 10 mg tab(s) (DOLOPHINE) 10 mg ORAL BID - cephALEXin 500 mg cap(s) (KEFLEX) 500 mg ORAL q 12 H - insulin NPH human 16 Units injection pen (intermediate acting) (NovoLIN N, HumuLIN N) 16 Units SUBCUTANEOUS BID - aspirin 81 mg chewable tab(s) 81 mg ORAL BID PHYSICAL EXAM: Vital signs: BP 106/63 Pulse 98 Temp 36.9 ?C (98.4 ?F) (Oral) Resp 18 Ht 175.3 cm (5' 9) Wt 70.3 kg (155 lb) SpO2 95% BMI 22.89 kg/m? Temp (24hrs), Av.8 ?C (98.2 ?F), Min:36.6 ?C (97.9 ?F), Max:37.1 ?C (98.8 ?F) GEN: Alert, pleasant, NAD HEENT: PERRL, moist oral mucosa, neck supple PULM: CTA bilateral, no rhonchi/wheezes. CV: RRR GI: soft, non distended, non tender, BSx4 : no chen, no CVAT EXT:?left BKA,dressing SKIN: no rash NEURO: no focal deficits, Alert and oriented x3 LINES: PICC site clean? Lab data: reviewed Recent Labs 06/26/19 0112 NA 138 K 4.0 CO2 33* BUN 11 CREAT 0.55* Microbiology data: reviewed Imaging data: reviewed [facility] Answering Service: [phone] June 28, 2019 11:33 AM Seen and examined independently. Agree fully w above notes as documented by the RETAINING ROOM CUTTER. Donnell Garcia MD 06/28/2019 4:25 PM Normal [facility] PROGRESS HNO ID: [id number] Author: Jayy Vogel Service: Orthopaedic Surgery Author Type: Physician Type: Progress Notes Filed: 06/28/2019 10:37 AM Note Text: ORTHOPAEDIC SURGERY DAILY PROGRESS NOTE Patient Name: Tori Cantor Date of Evaluation: 06/28/2019 Admission Date: 06/21/2019 Time of Evaluation: 6:16 AM ORTHO STAFF: Agree with resident assessment and plan noted below. Will initiate daily soap and water washes left BKA surgical site at his SNF, continue RRD. Jayy Vogel MD ASSESSMENT: 44 year old male POD#4 s/p L BKA ? PLAN: - PT/OT:??Non Weight Bearing?left lower -?Appreciate pain management recommendations and discharge medications. Continues to have knee and phantom pain. -Appreciate endocrine recs. Insulin orders adjusted yesterday. Appreciate discharge med recs re: insulin changes - DVT Prophylaxis:??SCD on the RLE, ASA 81 mg BID - GI Prophylaxis:?Protonox 40mg once daily - Post-op Abx:??Ancef 1g IV x 48 hours, switch to Keflex 500mg BID x 4 days - Dressing:?Dry dressing. [facility] for RRD? -?Appreciate endocrinology recommendations - Discharge planning:??[facility]. Stable for discharge today from ortho standpoint ?? INTERVAL HPI: Patient monitored, no new events overnight. Well Controlled pain. Denies nausea/vomitting. OBJECTIVE: BP 124/73 Pulse 85 Temp 36.8 ?C (98.2 ?F) (Oral) Resp 17 Ht 175.3 cm (5' 9) Wt 70.3 kg (155 lb) SpO2 97% BMI 22.89 kg/m? Intake/Output Summary (Last 24 hours) No intake/output data recorded. Exam: General: NAD, AAOx3 Extremities: Left?Lower Extremity: Dressing?clean, dry and intact. ? Labs: CBC: WBC 7.31 06/24/2019 Hemoglobin 8.4 06/24/2019 Hematocrit 26.5 06/24/2019 Platelet Count 448 06/24/2019 BMP: Sodium 138 06/26/2019 Potassium 4.0 06/26/2019 Chloride 100 06/26/2019 CO2 33 06/26/2019 BUN 11 06/26/2019 Creatinine 0.55 06/26/2019 Glucose 84 06/26/2019 COAGS: APTT 27.6 06/09/2019 PT INR 1.01 06/21/2019 SED RATE/CRP: Sed Rate, Westergren 84 06/08/2019 CRP 23.80 06/08/2019 Velvet Phelps MD PGY-V, Orthopaedic Surgery [facility] Phone #: [phone] Please page [phone] after 5pm or if you need a prompt response 06/28/2019 6:16 AM Normal [facility] THERAPY NTon 06-28-2019 THERAPY NT HNO ID: [id number] Author: Mary (Pt) Linda Service: Physical Therapy Author Type: Physical Therapist Type: Therapy (PT/OT/Speech/Resp) Filed: 06/28/2019 11:53 AM Note Text: Physical Therapy Treatment SERVICE DATE: 06/28/2019 SERVICE TIME: 1120 to 1133 ROOM: [id number] Recommended Discharge Disposition: Subacute/SNF Recommended Discharge Disposition Comments: Pt with significant limitations in functional mobility requiring physical assist or he is unsafe to perform. Pt will need SNF at d/c to continue working on limitations for goal of eventual return home. Justification For Post Acute Needs: Anticipate that patient will require daily (5x/wk) skilled therapy in a post-acute facility setting at the time of acute hospital discharge PT Recommendations to Nursing: Ambulate with device;To bathroom;In halls;Transfer to/from chair;OOB for Meals;With assist of 1 person Device: Wheeled Walker PT 6 Clicks Score: 17 Precautions/Activity Restrictions: Weight Bearing Restrictions Precaution/Activity Restriction Comments: NWB Isolation Type: None Extremity With Weight Bearing Restricted: Left Lower Extremity Left Lower Extremity Weight Bearing Status: NWB ASSESSMENT : Patient PT treatment limited by patient being nauseas and possibly needing to have a bowel movement. Patient able to participate in ambulating to the bathroom but does require cueing for safety during ambulation and transfers. Patient will continue to require skilled PT services for return to prior level of function. Patient Disposition at Start of Session: Sitting Edge of Bed;Call Hines in Reach Patient Disposition at End of Session: Other: See Comment(in bathroom, RN and tech aware) Tolerance Limited By Physiologic Response(nausea, possible bowel movement) Physical Therapy Problem List: Education Deficit;Pain;Safety Deficits;Impaired Self Care;Decreased Range Of Motion;Decreased Strength;Functional Mobility Impairment Patient /Caregiver Goals: Walk;Go To Rehab Goals for Plan of Care: Able to perform HEP with: Verbal Cues Only Transfer sit to/from stand with: Contact Guard Assistance Ambulate with: Contact Guard Assistance Distance: 40 Device: Wheeled Walker Goal: pt voices need to avoid knee flexion resting position on L knee Progress Toward Goals: Progressing as expected Rehab Potential: Good PLAN: Treatment Frequency (times per week): 7(4-7) Current admission Treatment Interventions: Education;Joint Mobility;Strengthening;Fu nctional Mobility Training Plan of Care developed with: Patient TREATMENT INTERVENTIONS: Therapy Diagnosis: Reduced mobility-other;Abnormalit ies of gait and mobility-other;General symptoms and signs-other Interventions Provided: Gait Training (55388) Gait Training (73987) Treatment Minutes: 13 1 unit Skilled Intervention(s): Instruction in sit to stand technique with proper hand placement and body positioning at edge of bed/chair. Cueing during sit to stand trasnfer to take his time and get balance prior to taking of and walking. Instructed patient to use wheeled walker to hop on RLE in order to get to bathroom. Verbal cueing to stay up tall during ambulation and take time. While in bathroom, instructed patient in proper hand placement for stand to sit transfer and assist for safety in order to get onto low toilet seat. Patient educated to pull string when ready to get off the toilet and to wait for nursing staff. RN and tech aware of patients position Total Timed Code Treatment Minutes: 13 Total Treatment Time (minutes): 13 SUBJECTIVE: Current Hospital Course: Chart reviewed and no significant medical updates relevant to therapy were noted Reason for Physical Therapy Consult : treatment Relevant Past Medical History: DM 1, L ankle fx, sepsis, IV drug use, HLD, Hep C, GERd Patient Report: Patient without complaints Home Environment Patient Lives With: Facility Care(SNF) Assistance Available: 24 Hour Equipment Owned: Cane;Wheeled Walker;Rollator([place] boot (doesnt wear)) Prior Functional Level: Required Assistance Assistance Required With: Transfers;Ambulation;Self Care;Transportation Prior Functional Level Comments: working with PT/OT at facility OBJECTIVE: CURRENT FUNCTIONAL STATUS: Current Functional Mobility Assist Level Additional Information Sit to Stand Minimal Assistance Stand to Sit Minimal Assistance Gait Minimal Assistance Gait Device: Wheeled Walker Gait Distance (feet): 10ft Gait Deviations Left Lower Extremity: (L BKA) General Gait Deviations: Non-functional gait speed;Loss of Balance;Difficulty changing direction/turning(hopping on LLE) Balance: Static Standing;Dynamic Standing Static Standing Balance: Fair- Requires Min A or UE support in order to stand without LOB Dynamic Standing Balance: Poor(without UE support on walker) Able to stand with Mod A and minimally reach ipsilaterally, unable to cross midline(without UE support on walker) JH-HLM: 6: Walk 10 steps or more Please see discipline specific clinical documentation flowsheet for complete details for this therapy evaluation/treatment. SIGNATURE: Mary Mckeon PT PATIENT NAME: Tori Cantor DATE: June 28, 2019 TIME: 11:46 AM Normal [facility] TSH Reflexon 06-28-2019 TSH Qn 5.880 uIU/mL High 0.358-3.740 [facility] Comment on above: Result Comment: Free T4 reflexed if TSH is less than or greater than the reference range. Performed By: #### P 8 #### [place] [address] ALLIED HEALTHon 06-27-2019 ALLIED HEALTH HNO ID: [id number] Author: Norma (Rn) MATT Garza Service: Diabetes Education Author Type: Registered Nurse Type: Allied Health Filed: 06/27/2019 2:58 PM Note Text: DIABETES EDUCATION PROGRESS NOTE SERVICE DATE: 06/27/2019 SERVICE TIME: 1430 RECOMMENDATIONS: Patient needs to follow-up with primary care physician after discharge. Follow up with endo as indicated PATIENT HISTORY/ASSESSMENT: Previously diagnosed: Type 1 TOPIC(S): Survival Skills: Medication therapy: Injectables - Insulin lispro (Humalog), Insulin detemir (Levemir), Insulin glargine (Lantus) and Pre-mixed (70% N and 30% R) Acute complications: Hypoglycemia, Hyperglycemia and Sick Day Management Blood glucose monitoring: Timing techniques, Logging results, Alternating fingers, Disposal of sharps Blood glucose targets: FBS 70-110 2hr pc 70-140 or per endo recs Relationship of BG control to post op healing Patient Education/Health Promotion: Complication prevention, Coping skills and Self management and follow up Diabetes Management: Self foot care, Dilated eye exam and Hemaglobin A1C EDUCATION: Cognitive ability: Alert and Oriented. Motivation to learn: Interested. Barriers to learning: None Family support: Unable to assess - Family not present Education Type: Individual instruction Written instruction - handouts Verbal instruction Response to education: States/Identifies. Education provided to: Patient. Teachback method used. Time Spent (Minutes): 15 DM ed complete and signed off. Re-consult prn. SIGNATURE: Norma Garza RN PATIENT NAME: Tori Cantor DATE: June 27, 2019 TIME: 2:55 PM PAGER: [phone] [facility] HNO ID: [id number] Author: Jessica AaronRn) MATT Flores Service: Nursing Author Type: Registered Nurse Type: Allied Health Filed: 06/27/2019 12:53 PM Note Text: HALO NURSE PROGRESS NOTE SERVICE DATE: 06/27/2019 SERVICE TIME: 12:49 PM REFERRED BY: Cristal GUTIERREZ VISIT WITH: Patient REASON FOR VISIT: Coping issues, Grief and loss, Length of stay, Pain and Serious illness/trauma CONDITION: Cardiovascular, Neuromuscular and Surgical INTERVENTIONS: Emotional support, Prayer with patient and Therapeutic listening TIME SPENT (minutes): 30 Pt is receptive to a visit. He states he is still dealing with pain issues and adjusting to surgery performed for him. I have brought diversional material for him. Prayer with patient. Encouragement and reassurance given. SIGNATURE: Jessica Flores RN PATIENT NAME: Tori Cantor DATE: June 27, 2019 TIME: 12:[address] [facility] HEALTH HNO ID: [id number] Author: Norma Garza RN Service: Diabetes Education Author Type: Registered Nurse Type: Allied Health Filed: 06/27/2019 10:46 AM Note Text: Consult received. Chart reviewed. Will follow up for DM ed. [facility] CASE MANAGEMon 06-27-2019 CASE MANAGEM HNO ID: [id number] Author: Muna (Rn) MATT Cordero Service: Care Management Author Type: Registered Nurse Type: Care Mgt Progress Note Filed: 06/27/2019 2:15 PM Note Text: CARE MANAGEMENT PROGRESS NOTE SERVICE DATE: 06/27/2019 SERVICE TIME: 1413 LOS: 6 days Plan is to return to [facility], will need precert SIGNATURE: Muna Cordero RN PATIENT NAME: Tori Cantor DATE: June 27, 2019 TIME: 2:13 PM PAGER/CONTACT #: [phone] [facility] CONSULT PROGon 06-27-2019 CONSULT PROG HNO ID: [id number] Author: Lucita Del Real Service: Endocrinology Author Type: Physician Type: Consult Progress Note Filed: 06/27/2019 1:11 PM Note Text: ENDOCRINOLOGY CONSULT PROGRESS NOTE SERVICE DATE: 06/27/2019 SERVICE TIME: 9:50 AM Subjective INTERVAL HPI: Following for DM type 1. Was initially adm with left ankle fracture after a fall, has left leg infection, cellulitis. Was discharged 06/20 on NPH 20 units bid and Humalog 10 units qac; now readmitted and is NPH 20 units bid and Humalog 8 units qac tid plus correction. Notes and orders reviewed. Readmitted with redislocation of the tibiotalar joint and worsening fracture displacement; s/p left BKA on 06/24. C/o left leg pain; no nausea, c/o dry mouth. DIET CARBOHYDRATE CONTROLLED fair po intake, on Boost bid (lunch/dinner) Recent Labs 06/27/19 1051 06/27/19 0619 06/27/19 0353 06/26/19 0112 06/25/19 0258 06/24/19 2109 GLUC -- -- -- -- 84 -- 222* 395* GLUCOSEMETER 219* 111* 136* < > -- < > -- -- < > = values in this interval not displayed. Current Facility-Administered Medications Medication Dose Route Frequency - pregabalin 100 mg cap(s) (LYRICA) 100 mg ORAL TID - lisinopril 10 mg tab(s) (ZESTRIL, PRINIVIL) 10 mg ORAL DAILY - pantoprazole DR 40 mg tab(s) (PROTONIX) 40 mg ORAL DAILY - DULoxetine 20 mg cap(s) (CYMBALTA) 20 mg ORAL DAILY - NaCl 0.9% 2-10 mL 2-10 mL INTRAVENOUS q 12 H - acetaminophen 650 mg tab(s) (TYLENOL) 650 mg ORAL q 6 H PRN - dextrose 40 % 15 g 15 g ORAL PRN Or - glucagon 1 mg injection (GLUCAGEN) 1 mg INTRAMUSCULAR PRN Or - dextrose 50 % 12.5 g injection 12.5 g INTRAVENOUS PRN - insulin lispro 8 Units pen (rapid acting) (HumaLOG KWIKPEN) 8 Units SUBCUTANEOUS w MEALS - insulin lispro 0-5 Units pen (rapid acting) (HumaLOG KWIKPEN) 0-5 Units SUBCUTANEOUS w MEALS - cyclobenzaprine 5-10 mg tab(s) (FLEXERIL) 5-10 mg ORAL q 8 H PRN - senna-docusate 8.6-50 mg 1 tablet (SENNA-S) 1 tablet ORAL BID - oxyCODONE IR 10-15 mg tab(s) (ROXICODONE) 10-15 mg ORAL q 3 H PRN - calcium carbonate 500 mg chewable tab(s) (TUMS) 500 mg ORAL BID PRN - methadone 10 mg tab(s) (DOLOPHINE) 10 mg ORAL BID - cephALEXin 500 mg cap(s) (KEFLEX) 500 mg ORAL q 12 H - insulin NPH human 16 Units injection pen (intermediate acting) (NovoLIN N, HumuLIN N) 16 Units SUBCUTANEOUS BID - aspirin 81 mg chewable tab(s) 81 mg ORAL BID Objective PHYSICAL EXAM: awake, alert; no distress Lungs : clear CVS: RRR Abd: soft, non tender Ext: left BKA stump has compression bandage, 1+ edema right leg/ankle BP 114/73 Pulse 92 Temp (Src) 98.6 (Oral) Resp 18 Ht 5' 9 (1.75m) Wt 155 lb (70.3kg) SpO2 95% BMI 22.88 kg/(m2). O2 Therapy: Room Air DATA: Diagnostic tests reviewed for today's visit: Most recent labs and imaging results. 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 Home Rx is Levemir 25 units bid and Novolog 14 units tid with SSI. Was on 70/30 from 03/09 till 05/18 (while incarcerated) Saw [facility] in [place] in September,; insulin changed to NPH 20 units bid and humalog 10 units qac tid plus correction. Resumed NPH to 20 units bid and humalog 8 units qac tid plus correction; did not get NPH on 06/24 am as he was in surgery; was on D5% 1/2 NS at 50 cc/hour while NPO which was d/rl 06/24 pm; BS high after OR on 06/24; had NPH 20 units, Humalog 6 units and 1 L of NS IV given. BS better, occ <100; cont Rx. Boost supplement ordered bid; decrease NPH to 16 units bid to avoid hypoglycemia. ? Cellulitis/abscess left ankle, s/p debridement and external fixation of ankle fracture on 06/10. JOANNA normal. Went to OR again on 06/15 for debridement. Adm with redislocation of the tibiotalar joint and worsening fracture displacement; to OR again on 06/24. S/p left BKA on 06/24 per Ortho. ? IVDU (intravenous drug user) POA: Yes Assessment AND Plan: hx ? Closed fracture of left ankle POA: Yes Assessment AND Plan: trimalleolar, 4 weeks ago after a fall; with external fixator ? Abnormal thyroid function test; TSH 8.2 due to non-thyroidal illness; Low free T3 , free T4 normal at 1.3 and reverse T3 ok at 18; repeat TSH ? SIGNATURE: Lucita Del Real MD PATIENT NAME: Tori Cantor DATE: June 27, 2019 TIME: 1:10 PM PAGER: [phone] Normal [facility] PROGRESSon 06-27-2019 PROGRESS HNO ID: [id number] Author: Donnell Garcia Service: Infectious Disease Author Type: Physician Type: Progress Notes Filed: 06/27/2019 3:28 PM Note Text: INFECTIOUS DISEASE PROGRESS NOTE Patient Name: Tori Cantor ASSESSMENT: 1.?Left ankle fracture/ dislocation with large area of necrotic skin, fascia and muscle s/p I and D on 06/15/2019?(MSSA) and now s/p removal spanning left ankle external fixator - S/P Left below knee amputation 06/24/2019 2. Left distal tibial osteomyelitis due to MSSA 3. High grade MSSA bacteremia?cleared 06/12, negative JOANNA 4. Type 1 diabetes- uncontrolled? PLAN: Continue PO Keflex x 4 days more Remove PICC line prior to DC INTERVAL HISTORY: Afebrile. C/o left LE phantom pain Tolerating Keflex, no n/v/d/f/c. Surgical stump dressing in place. MEDICATIONS: reviewed. Current Facility-Administered Medications Medication Dose Route Frequency - pregabalin 100 mg cap(s) (LYRICA) 100 mg ORAL TID - lisinopril 10 mg tab(s) (ZESTRIL, PRINIVIL) 10 mg ORAL DAILY - pantoprazole DR 40 mg tab(s) (PROTONIX) 40 mg ORAL DAILY - DULoxetine 20 mg cap(s) (CYMBALTA) 20 mg ORAL DAILY - NaCl 0.9% 2-10 mL 2-10 mL INTRAVENOUS q 12 H - acetaminophen 650 mg tab(s) (TYLENOL) 650 mg ORAL q 6 H PRN - dextrose 40 % 15 g 15 g ORAL PRN Or - glucagon 1 mg injection (GLUCAGEN) 1 mg INTRAMUSCULAR PRN Or - dextrose 50 % 12.5 g injection 12.5 g INTRAVENOUS PRN - insulin lispro 8 Units pen (rapid acting) (HumaLOG KWIKPEN) 8 Units SUBCUTANEOUS w MEALS - insulin lispro 0-5 Units pen (rapid acting) (HumaLOG KWIKPEN) 0-5 Units SUBCUTANEOUS w MEALS - cyclobenzaprine 5-10 mg tab(s) (FLEXERIL) 5-10 mg ORAL q 8 H PRN - senna-docusate 8.6-50 mg 1 tablet (SENNA-S) 1 tablet ORAL BID - oxyCODONE IR 10-15 mg tab(s) (ROXICODONE) 10-15 mg ORAL q 3 H PRN - calcium carbonate 500 mg chewable tab(s) (TUMS) 500 mg ORAL BID PRN - methadone 10 mg tab(s) (DOLOPHINE) 10 mg ORAL BID - cephALEXin 500 mg cap(s) (KEFLEX) 500 mg ORAL q 12 H - insulin NPH human 16 Units injection pen (intermediate acting) (NovoLIN N, HumuLIN N) 16 Units SUBCUTANEOUS BID PHYSICAL EXAM: Vital signs: BP 114/73 Pulse 92 Temp 37 ?C (98.6 ?F) (Oral) Resp 18 Ht 175.3 cm (5' 9) Wt 70.3 kg (155 lb) SpO2 95% BMI 22.89 kg/m? Temp (24hrs), Av.8 ?C (98.2 ?F), Min:36.6 ?C (97.9 ?F), Max:37.1 ?C (98.8 ?F) GEN: Alert, pleasant, NAD HEENT: PERRL, moist oral mucosa, neck supple PULM: CTA bilateral, no rhonchi/wheezes. CV: RRR GI: soft, non distended, non tender, BSx4 : no chen, no CVAT EXT:?left BKA,dressing SKIN: no rash NEURO: no focal deficits, Alert and oriented x3 LINES: PICC site clean? Lab data: reviewed Recent Labs 06/26/19 0112 06/25/19 0258 06/24/19 1621 WBC -- -- 7.31 HB -- -- 8.4* PLT -- -- 448* NA 138 136 -- K 4.0 4.1 -- CO2 33* 32 -- BUN 11 8 -- CREAT 0.55* 0.55* -- Microbiology data: reviewed Imaging data: reviewed [facility] Answering Service: [phone] June 27, 2019 11:58 AM Seen and examined independently. Agree fully w above notes as documented by the RETAINING ROOM CUTTER. Donnell Garcia MD 06/27/2019 3:27 PM [facility] PROGRESS HNO ID: [id number] Author: Remy Peraza Service: Pain Management Author Type: Physician Type: Progress Notes Filed: 06/27/2019 11:27 AM Note Text: Name: TORI CANTOR Age: [age] year old PAIN MANAGEMENT: 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, hx left trimalleolar ankle francture; MSSA bacteremia with tibia/fibular osteomyelitis; IVDA Pain Description: Patient complains of bad squeezing pain at BKA stump site; phantom pain as well 24H Pain Regimen: Dilaudid 1 mg times 5 doses IV Tylenol 650 mg x 1 Flexeril 10 mg x 2 Cymbalta 20 mg daily Oxycodone 15 mg ?3 Hydromorphone 1 mg IV ? 5 Lyrica 100 mg 3 times a day ? 3 Interval HPI: Pain increased after and with PT Antibiotic Therapy: Ancef Subjective HPI: 44yo male with history of IV drug abuse, 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 Patient was readmitted to orthopedic service with redislocation of the tibiotalar joint, exposed necrotic tibia and worsening fracture displacement. He underwent left BKA with removal of external fixator 06/24. Patient is known to our team from his recent admission 06/09?06/20 for MSSA bacteremia and osteomyelitis. He was discharged to SNF on oxycodone 5 mg #30 ? Prior to admission patient was taking Lyrica 100 mg by mouth 3 times a day. He smokes 1 pack per day. He denies alcohol. He does use marijuana infrequently. He states he had done street drugs for 30 years and then he last used a while ago. He has a history of IV cocaine and methamphetamine. He also admits to history of frequent IV fentanyl use. OARRS Review: Summary Total Prescriptions: 13 Total Prescribers: 5 Total Pharmacies: 2 Narcotics* ?(excluding buprenorphine) Current Qty: 6 Current MME/day: 45.00 30 Day Avg MME/day: 13.50 Sedatives* Current Qty: 18 Current LME/day: 2.01 30 Day Avg LME/day: 1.88 Buprenorphine* Current Qty: 0 Current mg/day: 0.00 30 Day Avg mg/day: 0.00 Rx Data Total Prescriptions: 13 ?? 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 06/21/2019 2 06/15/2019 Oxycodone Hcl 5 MG Tablet 30.00 5 Mo Sca [id number] Pha ([id number]) 0 45.00 [facility] Private Pay [place] 06/21/2019 2 06/21/2019 Pregabalin 100 MG Capsule 30.00 10 Pe Ailyn [id number] Pha ([id number]) 4 2.01 E Private Pay [place] 06/06/2019 2 06/06/2019 Oxycodone-Acetaminophen 5-325 30.00 7 Pe Ailyn [id number] Pha ([id number]) 0 32.14 [facility] [place] 06/06/2019 2 06/06/2019 Pregabalin 100 MG Capsule 30.00 10 Pe Ailyn [id number] Pha ([id number]) 4 2.01 [facility] [place] 06/01/2019 2 06/01/2019 Pregabalin 150 MG Capsule 30.00 15 Pe Ailyn [id number] Pha ([id number]) 4 2.01 [facility] [place] Private [place] 05/31/2019 2 05/31/2019 Oxycodone-Acetaminophen 5-325 6.00 1 Da Mil [id number] Pha ([id number]) 0 45.00 [facility] Private Pay [place] Current Facility-Administered Medications Medication Dose Route Frequency Provider Last Rate Last Dose - HYDROmorphone HCl 0.5-1 mg injection (DILAUDID) 0.5-1 mg INTRAVENOUS q 2 H PRN Jaqueline Vickie Dilauro 1 mg at 06/27/19 0353 - ceFAZolin iv piggyback 2 g in D5W (iso-osmotic) 100 mL (ANCEF) 2 g INTRAVENOUS q 8 H Alfred (Res) Maritza 200 mL/hr at 06/26/19 2120 2 g at 06/26/190 - oxyCODONE IR 10-15 mg tab(s) (ROXICODONE) 10-15 mg ORAL q 3 H PRN Jaqueline Vickie Dilauro 15 mg at 06/26/19 2254 - calcium carbonate 500 mg chewable tab(s) (TUMS) 500 mg ORAL BID PRN Clinton (Res) MD Ida 500 mg at 06/25/19 2218 - cyclobenzaprine 5-10 mg tab(s) (FLEXERIL) 5-10 mg ORAL q 8 H PRN Kenia K Scantling 10 mg at 06/26/19 1950 - senna-docusate 8.6-50 mg 1 tablet (SENNA-S) 1 tablet ORAL BID Kenia K Scantling 1 tablet at 06/26/191949 - insulin lispro 8 Units pen (rapid acting) (HumaLOG KWIKPEN) 8 Units SUBCUTANEOUS w MEALS Salina Midha 8 Units at 06/26/19 1221 - insulin lispro 0-5 Units pen (rapid acting) (HumaLOG KWIKPEN) 0-5 Units SUBCUTANEOUS w MEALS Jayy Palmer Dinicola 1 Units at 06/25/19 0633 - insulin NPH human 20 Units injection pen (intermediate acting) (NovoLIN N, HumuLIN N) 20 Units SUBCUTANEOUS BID Jayy Spencer Dinicola 20 Units at 06/26/192119 - pregabalin 100 mg cap(s) (LYRICA) 100 mg ORAL TID Jayy Spencer Dinicola 100 mg at 06/26/191949 - lisinopril 10 mg tab(s) (ZESTRIL, PRINIVIL) 10 mg ORAL DAILY Jayy Spencer Dinicola 10 mg at 06/26/19919 - pantoprazole DR 40 mg tab(s) (PROTONIX) 40 mg ORAL DAILY Jayy Spencer Dinicola 40 mg at 06/26/19921 - DULoxetine 20 mg cap(s) (CYMBALTA) 20 mg ORAL DAILY Jayy Spencer Dinicola 20 mg at 06/26/19919 - NaCl 0.9% 2-10 mL 2-10 mL INTRAVENOUS q 12 H Jayy Palmer Dinicola 3 mL at 06/26/191949 - acetaminophen 650 mg tab(s) (TYLENOL) 650 mg ORAL q 6 H PRN Jayy Palmer Dinicola 650 mg at 06/26/191955 - dextrose 40 % 15 g 15 g ORAL PRN Jayy Palmer Dinicola Or - glucagon 1 mg injection (GLUCAGEN) 1 mg INTRAMUSCULAR PRN Jayy Palmer Dinicola Or - dextrose 50 % 12.5 g injection 12.5 g INTRAVENOUS PRN Jayy Palmer Dinicola acetaminophen (TYLENOL) 325 mg tablet, Take 650 mg by mouth every 6 hours as needed (mild pain)., Disp: , Rfl: acetaminophen (TYLENOL) 325 mg tablet, Take 650 mg by mouth every 6 hours as needed for Fever., Disp: , Rfl: acetaminophen (TYLENOL) 325 mg tablet, Take 650 mg by mouth every 6 hours as needed (mild pain)., Disp: , Rfl: bisacodyl (DULCOLAX) 10 mg supp, 10 mg by RECTAL route once daily as needed for Constipation., Disp: , Rfl: bisacodyl EC (DULCOLAX, BISACODYL,) 5 mg EC tablet, Take 5 mg by mouth once daily as needed for Constipation., Disp: , Rfl: cyclobenzaprine (FLEXERIL) 5 mg tablet, Take 5 mg by mouth every 8 hours as needed for Muscle Spasm., Disp: , Rfl: levoFLOXacin (LEVAQUIN) 750 mg tablet, Take 750 mg by mouth once daily. For 14 days. Course of therapy initiated on 06/09/2019. Scheduled to end on 06/23/2019., Disp: , Rfl: lisinopril (ZESTRIL, PRINIVIL) 10 mg tablet, Take 10 mg by mouth once daily., Disp: , Rfl: pregabalin (LYRICA) 100 mg capsule, Take 100 mg by mouth three times daily., Disp: , Rfl: magnesium hydroxide (MOM) 400 mg/5 mL suspension, Take 30 mL by mouth once daily as needed for Constipation., Disp: , Rfl: naloxone 4 mg/actuation nasal spray (NARCAN), Use 1 spray alternating nostrils every 2 minutes as needed for anxiety., Disp: , Rfl: ondansetron (ZOFRAN) 4 mg tablet, Take 4 mg by mouth every 6 hours as needed (nausea)., Disp: , Rfl: oxyCODONE IR (ROXICODONE) 5 mg immediate release tablet, Take 5 mg by mouth every 4 hours as needed for Pain. For 5 days. Course initiated on 06/21/2019. Scheduled to end on 06/26/2019., Disp: , Rfl: oxyCODONE IR (ROXICODONE) 5 mg immediate release tablet, Take 5 mg by mouth every 6 hours as needed (severe pain). For 5 days. Course initiated on 06/21/2019. Scheduled to end on 06/26/2019., Disp: , Rfl: oxyCODONE-acetaminophen (PERCOCET) 5-325 mg tablet, Take 1 tablet by mouth every 6 hours as needed for Pain., Disp: , Rfl: senna (SENNA) 8.6 mg tab, Take 17.2 mg by mouth twice daily., Disp: , Rfl: DULoxetine (CYMBALTA) 30 mg capsule, Take 30 mg by mouth once daily. For depression., Disp: , Rfl: doxycycline monohydrate 100 mg tablet, Take 100 mg by mouth twice daily. For 14 days. Course of therapy initiated on 06/09/2019. Scheduled to end on 06/23/2019., Disp: , Rfl: DULoxetine (CYMBALTA) 20 mg capsule, Take 20 mg by mouth once daily. For anxiety., Disp: , Rfl: insulin lispro (HUMALOG KWIKPEN INSULIN) 100 unit/mL inpn, Inject as per sliding scale subcutaneously before meals. If blood sugars are: 100-150 inject 2 unit(s). 151-200 inject 4 unit(s). 201-250 inject 6 unit(s). 251-300 inject 8 unit(s). 301-350 inject 10 unit(s). 351-400 inject 12 unit(s). 401-450 inject 14 unit(s). For blood glucose <70 or >500 call MD., Disp: , Rfl: insulin lispro (HUMALOG KWIKPEN INSULIN) 100 unit/mL inpn, Inject as per sliding scale subcutaneously before meals. If blood sugars are: 201-225 inject 4 unit(s). 226-250 inject 5 unit(s). 251-275 inject 6 unit(s). 276-300 inject 7 unit(s). 301-325 inject 8 unit(s). 326-350 inject 9 unit(s). 351-999 inject 10 unit(s) and notify provider., Disp: , Rfl: ibuprofen (MOTRIN) 400 mg tablet, Take 400 mg by mouth every 6 hours as needed., Disp: , Rfl: insulin NPH (HumuLIN N,NovoLIN N) pen, Inject 20 Units subcutaneously twice daily., Disp: , Rfl: insulin glargine (LANTUS SOLOSTAR U-100 INSULIN) 100 unit/mL (3 mL) inpn, Inject 24 Units subcutaneously twice daily., Disp: , Rfl: polyethylene glycol 3350 (MIRALAX) 17 gram/dose powder, Take 17 g by mouth twice daily., Disp: , Rfl: enoxaparin (LOVENOX) 40 mg/0.4 mL syrg, Inject 40 mg subcutaneously every 24 hours., Disp: , Rfl: pantoprazole DR (PROTONIX) 40 mg tablet, Take 40 mg by mouth once daily. , Disp: , Rfl: , 05/26/2019 ceFAZolin (ANCEF) 2 gram/100 mL in dextrose (iso-osmotic), Inject 100 mL intravenously every 8 hours., Disp: 9000 mL, Rfl: 1, Unknown at Unknown time Social History Tobacco Use - Smoking status: Current Every Day Smoker Packs/day: 1.00 Types: Cigarettes - Smokeless tobacco: Never Used Substance Use Topics - Alcohol use: Yes Comment: socially - Drug use: Yes Types: Cocaine, Amphetamines Comment: hist of cocaine and marajuana use, fentanyl FAMILY HISTORY Problem Relation Age of Onset - Hypertension Mother - Diabetes Mother - Stroke Mother - Heart Mother CHF - Cataract Mother - Hypertension Father - COPD Father - Emphysema Father PAST SURGICAL HISTORY Procedure Laterality Date - IR VASCULAR ACCESS TEAM PICC INSERTION RADIO 06/17/2019 - NONE ROS: All of the following reviewed and negative except as noted below: GENERAL: no fever, chills, sweats, weight loss, fatigue, generalized weakness HEENT: no headache, vision changes, eye discomfort, hearing change, ear discomfort, sinus pain, nasal discharge or congestion, oral lesions, soreness, dental problem NECK: no adenopathy, discomfort, change in ROM CHEST: no shortness of breath, dyspnea on exertion, wheezing, cough, sputum production or chest pain HEART: no chest pain, palpitations, syncope ABDOMEN: no nausea, vomiting, constipation, diarrhea, abdominal pain : no dysuria, urgency, frequency, history of stones, incontinence NEURO: no confusion or alteration in consciousness, slurred speech, seizure, focal weakness EXTREMITIES: See HPI HEME: no new adenopathy, bruises, petechiae PSYCH: no depression, anxiety, agitation PAIN PSYCHIATRIC EXAM: GENERAL: alert, oriented to person, place, time JUDGMENT AND INSIGHT: intact APPEARANCE: neatly groomed DEMEANOR: coooperative, not hostile, mistrustful, preoccupied, or demanding ACTIVITY: normal, not hyperactive or hypoactive, no tremors, tics EYE CONTACT: normal SPEECH: normal, rate, volume, articulation, coherence, spontaneity MOOD: normal, without overt sadness, grief, anxiety, appropriate to situation IDEATION: normal and without suicidal or homicidal ideation MEMORY: intact PHYSICAL EXAMINATION: GENERAL: well nourished and developed; no acute distress; alert and oriented x 3; intact judgement and insight HEENT: no evidence of trauma; cranial nerves intact; eyes clear EOMI; no hearing deficits apparent; nasal passages unremarkable; throat and mucous membranes clear NECK: supple without lymphadenopathy; no JVD; no thyromegaly CHEST: clear bilaterally to auscultation; normal chest movement; no rales or rhonchi HEART: regular rate and rhythm, normal S1 and S2, no murmurs, clicks, rubs, or gallops ABDOMEN: soft; nondistended; bowel sounds present; no hepatomegaly; no splenomegaly; no tenderness EXTREMITIES: no evidence of clubbing; no cyanosis; no edema; left BKA NEURO: cranial nerves intact; no focal deficits; no confusion; no tremor; sensorium normal SKIN: no rash; no skin breakdown; no decubitus lesions HEME: no bruising; no adenopathy PSYCH: no evidence of depression; no anxiety; no agitation; no apparent hallucinations BP 128/85 Pulse 92 Temp 36.9 ?C (98.4 ?F) (Temporal Artery) Resp 16 Ht 175.3 cm (5' 9) Wt 70.3 kg (155 lb) SpO2 95% BMI 22.89 kg/m? BMI 22.89 kg/(m2) Date 06/24/19699 - 06/25/19 0659 Shift 9392-3389 1893-6256 0189-5067 24 Hour Total INTAKE IV 1000 1000 Shift Total 1000 1000 OUTPUT Shift Total Weight (kg) 70.3 70.3 70.3 70.3 Date 06/23/19699 - 06/24/19 0659 06/24/19699 - 06/25/19 0659 Shift 0000-9379 2887-2519 7822-1570 24 Hour Total 5593-1474 6473-6889 7638-2837 24 Hour Total INTAKE PO 480 480 PO 480 480 IV 1000 1000 OR Crystalloid intake (mL) 1000 1000 Shift Total 590 321 9090 1000 OUTPUT Urine 828 0501 736 5719 Void (ml) 828 2062 943 1722 Urine Not Saved. 1 x 1 x Shift Total 828 4093 527 4639 Weight (kg) 70.3 70.3 70.3 70.3 70.3 70.3 70.3 70.3 ABNORMAL/NEW FINDINGS: NONE RADIOLOGY/DIAGNOSTICS: LABORATORY: CBC: No results for input(s): WBC, RBC, HB, HCT, PLT, MCV, MCH, MPV, RDW in the last 24 hours. CMP: No results for input(s): NA, K, CHLOR, CO2, BUN, CREAT, GLUC, TPROT, CA, MG, ALBUMIN, TBILI, ALKPHOS, ALT, AST, ANION in the last 24 hours. Heme: No results for input(s): RETICP, ABSRETIC, LD, VIKRAM, FE, TIBC, TRANSFERSAT in the last 24 hours. 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 ([facility]) Hypertension Gerd (Gastroesophageal Reflux Disease) Microalbuminuria History of Diabetic Gastroparesis Diabetic Polyneuropathy Associated With Type 1 Diabetes Mellitus ([facility]) Depression With Anxiety Charcot's Joint of Right Foot Hyperlipidemia Hep C W/O Coma, Chronic ([facility]) History of Drug Abuse in Remission ([facility]) Ivdu (Intravenous Drug User) Tobacco Abuse Left Ankle Joint Deformity Hyperglycemia Nicotine use disorder, F17.2 Closed Fracture of Left Ankle Sepsis ([facility]) Closed Trimalleolar Fracture of Left Ankle PLAN: 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 Continue oxycodone 10-15 milligram every 3 hours when necessary Lyrica 100 mg by mouth 3 times a day Senna S twice a day Remy Peraza M.D. Normal [facility] PROGRESS HNO ID: [id number] Author: Jayy Vogel Service: Orthopaedic Surgery Author Type: Physician Type: Progress Notes Filed: 06/27/2019 12:30 PM Note Text: ORTHOPAEDIC SURGERY DAILY PROGRESS NOTE Patient Name: Tori Cantor Date of Evaluation: 06/27/2019 Admission Date: 06/21/2019 Time of Evaluation: 6:02 AM ORTHO STAFF: Patient seen and examined. Agree with resident assessment and plan noted below. Will add aspirin 81 mg PO BID for relative immobility and higher risk for DVT; would avoid injection anticoagulants given general high risk for bleeding and flap compromise after amputation. Discharge planning. Plan of Care performed with nursing staff. Jayy Vogel MD ASSESSMENT: 44 year old male POD#3 s/p L BKA PLAN: - PT/OT: Non Weight Bearing left lower - Appreciate pain management recommendations and discharge medications. Continues to have knee and phantom pain. - DVT Prophylaxis: SCD on the RLE - GI Prophylaxis: Protonox 40mg once daily - Post-op Abx: Ancef 1g IV x 48 hours, switch to Keflex 500mg BID x 5 days starting today - Dressing: Dry dressing. Proxio to be consulted for RRD today - Appreciate endocrinology recommendations - Discharge planning: [facility]. Stable for discharge after RRD fitting from ortho standpoint INTERVAL HPI: Patient monitored, no new events overnight. Well Controlled pain. Denies nausea/vomitting. Patient discouraged by glucose fluctuations. Feels that he goes down and then has more insulin due so his glucose plummets and he feels ill. OBJECTIVE: BP 125/78 Pulse 90 Temp 36.6 ?C (97.9 ?F) (Oral) Resp 18 Ht 175.3 cm (5' 9) Wt 70.3 kg (155 lb) SpO2 94% BMI 22.89 kg/m? Intake/Output Summary (Last 24 hours) 06/26 2300 - 06/27 0659 In: 1000 [PO:900; IV:100] Out: 1350 [Urine:1350] Exam: General: NAD, AAOx3 Extremities: Left Lower Extremity: Dressing clean, dry and intact. Labs: CBC: WBC 7.31 06/24/2019 Hemoglobin 8.4 06/24/2019 Hematocrit 26.5 06/24/2019 Platelet Count 448 06/24/2019 BMP: Sodium 138 06/26/2019 Potassium 4.0 06/26/2019 Chloride 100 06/26/2019 CO2 33 06/26/2019 BUN 11 06/26/2019 Creatinine 0.55 06/26/2019 Glucose 84 06/26/2019 COAGS: APTT 27.6 06/09/2019 PT INR 1.01 06/21/2019 SED RATE/CRP: Sed Rate, Westergren 84 06/08/2019 CRP 23.80 06/08/2019 Velvet Phelps MD PGY-V, Orthopaedic Surgery [facility] Phone #: [phone] Please page [phone] after 5pm or if you need a prompt response 06/27/2019 6:02 AM [facility] PT EDon 06-27-2019 PT ED HNO ID: [id number] Author: Brianna Sands) Saji Service: Nutrition Therapy Author Type: Hotel Guest Service Agent Type: Patient Education Filed: 06/27/2019 2:00 PM Note Text: NUTRITION THERAPY PATIENT EDUCATION SERVICE DATE: 06/27/2019 SERVICE TIME: 1:50 TOPIC: Diabetic Education Diagnosis: ADULT: Diabetes EXEMPTION FROM DIET EDUCATION Patient has already received Diabetes Nutrition Education from recent hospital stay from 06/09-06/24. MNT Billing: Initial Assess/15 min 1 unit SIGNATURE: Brianna Lennon DTR PATIENT NAME: Tori Cantor DATE: June 27, 2019 TIME: 2:00 PM PAGER: [phone] [facility] THERAPY NTon 06-27-2019 THERAPY NT HNO ID: [id number] Author: Kaveh Schofield Joshua Service: Physical Therapy Author Type: Self Contained Behavior Unit Teacher Type: Therapy (PT/OT/Speech/Resp) Filed: 06/27/2019 4:14 PM Note Text: ----- Attestation signed by Mary Mckeon at 06/28/2019 9:57 AM I reviewed and agree with the documentation corresponding to this therapy visit. SIGNATURE: Mary Mckeon PT DATE: June 28, 2019 TIME: 9:57 AM ----- Physical Therapy Treatment SERVICE DATE: 06/27/2019 SERVICE TIME: 1527 to 1556 ROOM: [place] [address] Recommended Discharge Disposition: Subacute/SNF Recommended Discharge Disposition Comments: Pt with significant limitations in functional mobility requiring physical assist or he is unsafe to perform. Pt will need SNF at d/c to continue working on limitations for goal of eventual return home. Justification For Post Acute Needs: Anticipate that patient will require daily (5x/wk) skilled therapy in a post-acute facility setting at the time of acute hospital discharge PT Recommendations to Nursing: Ambulate with device;To bathroom;Transfer to/from chair;OOB for Meals;With assist of 1 person Device: Wheeled Walker PT 6 Clicks Score: 17 Precautions/Activity Restrictions: Weight Bearing Restrictions Precaution/Activity Restriction Comments: NWB Isolation Type: None Extremity With Weight Bearing Restricted: Left Lower Extremity Left Lower Extremity Weight Bearing Status: NWB ASSESSMENT : Patient presents with ongoing PT goals--patient with continued need for minimal assist with gait tasks, patient with increased fatigue during gait, requiring standing rest breaks to recover throughout. Patient continues to demo balance, strength, and general deficits with mobility, patient would benefit from continued skilled therapy to improve function back to baseline. Patient continues to be recommended for subacute/SNF to improve strength, balance, endurance, increased ambulation distances with normalize gait pattern, and increased independence with functional task performance/mobility to prior level of function. Patient Disposition at Start of Session: Supine in Bed;Call Hines in Reach Patient Disposition at End of Session: Supine in Bed;Call Hines in Reach Tolerated Full Session Physical Therapy Problem List: Education Deficit;Pain;Safety Deficits;Impaired Self Care;Decreased Range Of Motion;Decreased Strength;Functional Mobility Impairment Patient /Caregiver Goals: Walk;Go To Rehab Goals for Plan of Care: Able to perform HEP with: Verbal Cues Only Transfer sit to/from stand with: Contact Guard Assistance Ambulate with: Contact Guard Assistance Distance: 40 Device: Wheeled Walker Goal: pt voices need to avoid knee flexion resting position on L knee Progress Toward Goals: Progressing as expected Rehab Potential: Good PLAN: Treatment Frequency (times per week): 7(4-7) Current admission Treatment Interventions: Education;Joint Mobility;Strengthening;Fu nctional Mobility Training Plan of Care developed with: Patient TREATMENT INTERVENTIONS: Therapy Diagnosis: Reduced mobility-other;Abnormalit ies of gait and mobility-other;General symptoms and signs-other Interventions Provided: Gait Training (56307);Therapeutic Activity (40799);Neuromuscular Reeducation (66497) Therapeutic Activity (84668) Treatment Minutes: 3 0 units Skilled Intervention(s): Instructed patient in supine to and from sit pushing with upper extremities to sit up Instruction in sit to and from stand technique with proper hand placement and body positioning at edge of bed/chair--cuing for proper UE support, squaring up to seated surfaces prior to sitting, with proper controlled movements. Gait Training (44611) Treatment Minutes: 13 1 unit Skilled Intervention(s): Instruction in sit to stand technique with proper hand placement and body positioning at edge of bed/chair, Instruction in stand to sit technique with LE's touching chair/bed and reaching back for surface, Instruction in sequencing, gait pattern and Instruction in correction of gait deviations--cuing for improved right knee extension to decrease risk of knee buckling during hopping on RLE, cuing for improved postural extension, improved UE support with elbow straight to improved pushoff on walker, cuing for soft hopping on RLE to decrease impact force with hopping. Neuromuscular Re-Education (92174) Treatment Minutes: 13 1 unit Skilled Intervention(s): static/dynamic standing balance at walker--patient performing single UE support on walker with cuing for proper weight shifts, patient with increased difficulty when removing LUE compared to RUE. Patient performing catch/throw of rolled towel without UE support, patient required moderated assist to maintain balance during dynamic standing balance tasks. Total Timed Code Treatment Minutes: 29 Total Treatment Time (minutes): 29 SUBJECTIVE: Current Hospital Course: Chart reviewed and no significant medical updates relevant to therapy were noted Relevant Past Medical History: DM 1, L ankle fx, sepsis, IV drug use, HLD, Hep C, GERd Patient Report: patient stated high pain at 9/10, just had pain meds 15 minutes before therapy entered room. Patient agreeable to therapy. Home Environment Patient Lives With: Facility Care(SNF) Assistance Available: 24 Hour Equipment Owned: Cane;Wheeled Walker;Rollator([place] boot (doesnt wear)) Prior Functional Level: Required Assistance Assistance Required With: Transfers;Ambulation;Self Care;Transportation Prior Functional Level Comments: working with PT/OT at facility OBJECTIVE: CURRENT FUNCTIONAL STATUS: Current Functional Mobility Assist Level Additional Information Rolling Supine to Sit Contact Guard Assistance Sit to Supine Contact Guard Assistance Scooting Minimal Assistance Sit to Stand Minimal Assistance Stand to Sit Minimal Assistance Bed to Chair Minimal Assistance Bed To Chair Transfer Type: Stand Pivot Bed To Chair Transfer Equipment: Gait Belt;Wheeled Walker Toilet/Commode Gait Minimal Assistance Gait Device: Wheeled Walker Gait Distance (feet): 15'x4 Stairs Curb Step Car Transfer Gait Deviations Left Lower Extremity: (L BKA) General Gait Deviations: Argelia decreased;Step length decreased;Flexed trunk posture;Difficulty changing direction/turning;Non-fun ctional gait speed(hop pattern on RLE ) Balance: Static Standing;Dynamic Standing Static Standing Balance: Fair- Requires Min A or UE support in order to stand without LOB Dynamic Standing Balance: Poor(without UE support on walker) Able to stand with Mod A and minimally reach ipsilaterally, unable to cross midline(without UE support on walker) -HLM: 7: Walk 25 feet or more(combined walks equal 25' or greater) Please see discipline specific clinical documentation flowsheet for complete details for this therapy evaluation/treatment. SIGNATURE: Kaveh Lewis PTA PATIENT NAME: Tori Cantor DATE: June 27, 2019 TIME: 4:03 PM Normal [facility] THERAPY NT HNO ID: [id number] Author: Kizzy Gutierrez/Diana Gutierrez Service: Occupational Therapy Author Type: Occupational Therapist Type: Therapy (PT/OT/Speech/Resp) Filed: 06/27/2019 2:14 PM Note Text: OCCUPATIONAL THERAPY MISSED VISIT SERVICE DATE: 06/27/2019 SERVICE TIME: 1400 to 1410 ROOM: [place] [address] Attempted Treatment. Patient not seen due to Declined. Patient reporting 10/10 phantom limb pain, declines therapy until after pain medication. To be honest, I'd rather not talk to anyone else today. SIGNATURE: RASHID Brito PATIENT NAME: Tori Cantor DATE: June 27, 2019 TIME: 2:12 PM Normal [facility] THERAPY NT HNO ID: [id number] Author: Kaveh Lewis Service: Physical Therapy Author Type: Self Contained Behavior Unit Teacher Type: Therapy (PT/OT/Speech/Resp) Filed: 06/27/2019 11:27 AM Note Text: ----- Attestation signed by Mary (Pt) Linda at 06/27/2019 3:26 PM I reviewed and agree with the documentation corresponding to this therapy visit. SIGNATURE: Mary Mckeon PT DATE: June 27, 2019 TIME: 3:26 PM ----- PHYSICAL THERAPY MISSED VISIT SERVICE DATE: 06/27/2019 SERVICE TIME: 1126 to 1126 ROOM: [place] [address] Attempted Treatment. Patient not seen due to Another service at bedside. Will follow continue to follow patient as able. SIGNATURE: Kaveh Lewis PTA PATIENT NAME: Tori Cantor DATE: June 27, 2019 TIME: 11:27 AM Normal [facility] Basic Panelon 06-26-2019 Creatinine [Mass/Vol] 0.55 mg/dL Low 0.67-1.17 [facility] Comment on above: Performed By: #### C BC1 #### [address] [address] Urea nitrogen [Mass/Vol] 11 mg/dL Normal 7-18 [facility] Comment on above: Performed By: #### C BC1 #### [address] [address] Anion gap [Moles/Vol] 9 mmol/L Normal 8-16 [facility] Comment on above: Performed By: #### C BC1 #### [address] [address] Calcium [Mass/Vol] 8.8 mg/dL Normal 8.5-10.1 [facility] Comment on above: Performed By: #### C BC1 #### [facility] [address] [place], [place] [address] CO2 [Moles/Vol] 33 mmol/L High 21-32 [facility] Comment on above: Performed By: #### C BC1 #### [facility] [address] [place], [place] [address] Glucose [Mass/Vol] 84 mg/dL Normal 70-99 [facility] Comment on above: Performed By: #### C BC1 #### [facility] [address] [place], [place] [address] Chloride [Moles/Vol] 100 mmol/L Normal 98-107 [facility] Comment on above: Performed By: #### C BC1 #### [facility] [address] [place], [place] [address] Potassium [Moles/Vol] 4.0 mmol/L Normal 3.5-5.1 [facility] Comment on above: Performed By: #### C BC1 #### [facility] [address] [place], [place] [address] Sodium [Moles/Vol] 138 mmol/L Normal 136-145 [facility] Comment on above: Performed By: #### C BC1 #### [facility] [address] [place], [place] [address] CONSULTon 06-26-2019 CONSULT HNO ID: [id number] Author: Jaqueline Graff Service: Hospice Author Type: Physician Type: Consults Filed: 06/26/2019 2:20 PM Note Text: Name: TORI CANTOR Age: [age] year old PAIN MANAGEMENT: Left BKA /, hx left trimalleolar ankle francture; MSSA bacteremia with tibia/fibular osteomyelitis; IVDA Pain Description: Patient complains of bad squeezing pain at BKA stump site; phantom pain as well 24H Pain Regimen: Dilaudid 1 mg times 5 doses IV Tylenol 650 mg every 6 hours when necessary Flexeril 10 mg every 8 hours when necessary ?1 Cymbalta 20 mg daily [id number] milligram every 3 hours when necessary 10 mg ?4 Lyrica 100 mg 3 times a day ?2 Interval HPI: Pain increased after and with PT Subjective HPI: 44yo male with history of IV drug abuse, 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 Patient was readmitted to orthopedic service with redislocation of the tibiotalar joint, exposed necrotic tibia and worsening fracture displacement. He underwent left BKA with removal of external fixator 06/24. Patient is known to our team from his recent admission 06/09?06/20 for MSSA bacteremia and osteomyelitis. He was discharged to SNF on oxycodone 5 mg #30 ? Prior to admission patient was taking Lyrica 100 mg by mouth 3 times a day. He smokes 1 pack per day. He denies alcohol. He does use marijuana infrequently. He states he had done street drugs for 30 years and then he last used a while ago. He has a history of IV cocaine and methamphetamine. He also admits to history of frequent IV fentanyl use. OARRS Review: Summary Total Prescriptions: 13 Total Prescribers: 5 Total Pharmacies: 2 Narcotics* ?(excluding buprenorphine) Current Qty: 6 Current MME/day: 45.00 30 Day Avg MME/day: 13.50 Sedatives* Current Qty: 18 Current LME/day: 2.01 30 Day Avg LME/day: 1.88 Buprenorphine* Current Qty: 0 Current mg/day: 0.00 30 Day Avg mg/day: 0.00 Rx Data Total Prescriptions: 13 ?? 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 06/21/2019 2 06/15/2019 Oxycodone Hcl 5 MG Tablet 30.00 5 Mo Sca [id number] Pha ([id number]) 0 45.00 MME Private Pay [place] 06/21/2019 2 06/21/2019 Pregabalin 100 MG Capsule 30.00 10 Pe Ailyn [id number] Pha ([id number]) 4 2.01 LME Private Pay [place] 06/06/2019 2 06/06/2019 Oxycodone-Acetaminophen 5-325 30.00 7 Pe Ailyn [id number] Pha (6323) 0 32.14 E Private Pay [place] 06/06/2019 2 06/06/2019 Pregabalin 100 MG Capsule 30.00 10 Pe Ailyn [id number] Pha ([id number]) 4 2.01 [facility] [place] Private Pay [place] 06/01/2019 2 06/01/2019 Pregabalin 150 MG Capsule 30.00 15 Pe Ailyn [id number] Pha ([id number]) 4 2.01 [facility] [place] Private Pay [place] 05/31/2019 2 05/31/2019 Oxycodone-Acetaminophen 5-325 6.00 1 Da Mil [id number] Pha ([id number]) 0 45.00 [facility] Current Facility-Administered Medications Medication Dose Route Frequency Provider Last Rate Last Dose - ceFAZolin iv piggyback 2 g in D5W (iso-osmotic) 100 mL (ANCEF) 2 g INTRAVENOUS q 8 H Alfred (Res) Maritza 200 mL/hr at 06/26/19 1402 2 g at 06/26/19 1402 - oxyCODONE IR 10-15 mg tab(s) (ROXICODONE) 10-15 mg ORAL q 3 H PRN Jaqueline Johnston Dilauro 15 mg at 06/26/19 1400 - calcium carbonate 500 mg chewable tab(s) (TUMS) 500 mg ORAL BID PRN Clinton AaronRes) MD Ida 500 mg at 06/25/19 2218 - HYDROmorphone HCl 0.5-1 mg injection (DILAUDID) 0.5-1 mg INTRAVENOUS q 3 H PRN Kenia K Scantling 1 mg at 06/26/19 1205 - cyclobenzaprine 5-10 mg tab(s) (FLEXERIL) 5-10 mg ORAL q 8 H PRN Kenia K Scantling 10 mg at 06/26/19 0510 - senna-docusate 8.6-50 mg 1 tablet (SENNA-S) 1 tablet ORAL BID Kenia K Scantling 1 tablet at 06/26/19 0918 - insulin lispro 8 Units pen (rapid acting) (HumaLOG KWIKPEN) 8 Units SUBCUTANEOUS w MEALS Salina Midha 8 Units at 06/26/19 1221 - insulin lispro 0-5 Units pen (rapid acting) (HumaLOG KWIKPEN) 0-5 Units SUBCUTANEOUS w MEALS Jayy Palmer Dinicola 1 Units at 06/25/19 0633 - insulin NPH human 20 Units injection pen (intermediate acting) (NovoLIN N, HumuLIN N) 20 Units SUBCUTANEOUS BID Jayy Palmer Dinicola 20 Units at 06/26/19 0918 - pregabalin 100 mg cap(s) (LYRICA) 100 mg ORAL TID Jayy Palmer Dinicola 100 mg at 06/26/19 1401 - lisinopril 10 mg tab(s) (ZESTRIL, PRINIVIL) 10 mg ORAL DAILY Jayy Spencer Dinicola 10 mg at 06/26/19 0920 - pantoprazole DR 40 mg tab(s) (PROTONIX) 40 mg ORAL DAILY Jayy Palmer Dinicola 40 mg at 06/26/19 0922 - DULoxetine 20 mg cap(s) (CYMBALTA) 20 mg ORAL DAILY Jayy Palmer Dinicola 20 mg at 06/26/19 0920 - NaCl 0.9% 2-10 mL 2-10 mL INTRAVENOUS q 12 H Jayy Spencer Dinicola 10 mL at 06/26/19 0919 - acetaminophen 650 mg tab(s) (TYLENOL) 650 mg ORAL q 6 H PRN Jayy Joseph Dinicola 650 mg at 06/23/19 0216 - dextrose 40 % 15 g 15 g ORAL PRN Jayy Spencer Cassiusicola Or - glucagon 1 mg injection (GLUCAGEN) 1 mg INTRAMUSCULAR PRN Jayy Spencer Dinicola Or - dextrose 50 % 12.5 g injection 12.5 g INTRAVENOUS PRN Jayy Spencer Cassiusalberto acetaminophen (TYLENOL) 325 mg tablet, Take 650 mg by mouth every 6 hours as needed (mild pain)., Disp: , Rfl: acetaminophen (TYLENOL) 325 mg tablet, Take 650 mg by mouth every 6 hours as needed for Fever., Disp: , Rfl: acetaminophen (TYLENOL) 325 mg tablet, Take 650 mg by mouth every 6 hours as needed (mild pain)., Disp: , Rfl: bisacodyl (DULCOLAX) 10 mg supp, 10 mg by RECTAL route once daily as needed for Constipation., Disp: , Rfl: bisacodyl EC (DULCOLAX, BISACODYL,) 5 mg EC tablet, Take 5 mg by mouth once daily as needed for Constipation., Disp: , Rfl: cyclobenzaprine (FLEXERIL) 5 mg tablet, Take 5 mg by mouth every 8 hours as needed for Muscle Spasm., Disp: , Rfl: levoFLOXacin (LEVAQUIN) 750 mg tablet, Take 750 mg by mouth once daily. For 14 days. Course of therapy initiated on 06/09/2019. Scheduled to end on 06/23/2019., Disp: , Rfl: lisinopril (ZESTRIL, PRINIVIL) 10 mg tablet, Take 10 mg by mouth once daily., Disp: , Rfl: pregabalin (LYRICA) 100 mg capsule, Take 100 mg by mouth three times daily., Disp: , Rfl: magnesium hydroxide (MOM) 400 mg/5 mL suspension, Take 30 mL by mouth once daily as needed for Constipation., Disp: , Rfl: naloxone 4 mg/actuation nasal spray (NARCAN), Use 1 spray alternating nostrils every 2 minutes as needed for anxiety., Disp: , Rfl: ondansetron (ZOFRAN) 4 mg tablet, Take 4 mg by mouth every 6 hours as needed (nausea)., Disp: , Rfl: oxyCODONE IR (ROXICODONE) 5 mg immediate release tablet, Take 5 mg by mouth every 4 hours as needed for Pain. For 5 days. Course initiated on 06/21/2019. Scheduled to end on 06/26/2019., Disp: , Rfl: oxyCODONE IR (ROXICODONE) 5 mg immediate release tablet, Take 5 mg by mouth every 6 hours as needed (severe pain). For 5 days. Course initiated on 06/21/2019. Scheduled to end on 06/26/2019., Disp: , Rfl: oxyCODONE-acetaminophen (PERCOCET) 5-325 mg tablet, Take 1 tablet by mouth every 6 hours as needed for Pain., Disp: , Rfl: senna (SENNA) 8.6 mg tab, Take 17.2 mg by mouth twice daily., Disp: , Rfl: DULoxetine (CYMBALTA) 30 mg capsule, Take 30 mg by mouth once daily. For depression., Disp: , Rfl: doxycycline monohydrate 100 mg tablet, Take 100 mg by mouth twice daily. For 14 days. Course of therapy initiated on 06/09/2019. Scheduled to end on 06/23/2019., Disp: , Rfl: DULoxetine (CYMBALTA) 20 mg capsule, Take 20 mg by mouth once daily. For anxiety., Disp: , Rfl: insulin lispro (HUMALOG KWIKPEN INSULIN) 100 unit/mL inpn, Inject as per sliding scale subcutaneously before meals. If blood sugars are: 100-150 inject 2 unit(s). 151-200 inject 4 unit(s). 201-250 inject 6 unit(s). 251-300 inject 8 unit(s). 301-350 inject 10 unit(s). 351-400 inject 12 unit(s). 401-450 inject 14 unit(s). For blood glucose <70 or >500 call MD., Disp: , Rfl: insulin lispro (HUMALOG KWIKPEN INSULIN) 100 unit/mL inpn, Inject as per sliding scale subcutaneously before meals. If blood sugars are: 201-225 inject 4 unit(s). 226-250 inject 5 unit(s). 251-275 inject 6 unit(s). 276-300 inject 7 unit(s). 301-325 inject 8 unit(s). 326-350 inject 9 unit(s). 351-999 inject 10 unit(s) and notify provider., Disp: , Rfl: ibuprofen (MOTRIN) 400 mg tablet, Take 400 mg by mouth every 6 hours as needed., Disp: , Rfl: insulin NPH (HumuLIN N,NovoLIN N) pen, Inject 20 Units subcutaneously twice daily., Disp: , Rfl: insulin glargine (LANTUS SOLOSTAR U-100 INSULIN) 100 unit/mL (3 mL) inpn, Inject 24 Units subcutaneously twice daily., Disp: , Rfl: polyethylene glycol 3350 (MIRALAX) 17 gram/dose powder, Take 17 g by mouth twice daily., Disp: , Rfl: enoxaparin (LOVENOX) 40 mg/0.4 mL syrg, Inject 40 mg subcutaneously every 24 hours., Disp: , Rfl: pantoprazole DR (PROTONIX) 40 mg tablet, Take 40 mg by mouth once daily. , Disp: , Rfl: , 05/26/2019 ceFAZolin (ANCEF) 2 gram/100 mL in dextrose (iso-osmotic), Inject 100 mL intravenously every 8 hours., Disp: 9000 mL, Rfl: 1, Unknown at Unknown time Social History Tobacco Use - Smoking status: Current Every Day Smoker Packs/day: 1.00 Types: Cigarettes - Smokeless tobacco: Never Used Substance Use Topics - Alcohol use: Yes Comment: socially - Drug use: Yes Types: Cocaine, Amphetamines Comment: hist of cocaine and marajuana use, fentanyl FAMILY HISTORY Problem Relation Age of Onset - Hypertension Mother - Diabetes Mother - Stroke Mother - Heart Mother CHF - Cataract Mother - Hypertension Father - COPD Father - Emphysema Father PAST SURGICAL HISTORY Procedure Laterality Date - IR VASCULAR ACCESS TEAM PICC INSERTION RADIO 06/17/2019 - NONE ROS: All of the following reviewed and negative except as noted below: GENERAL: no fever, chills, sweats, weight loss, fatigue, generalized weakness HEENT: no headache, vision changes, eye discomfort, hearing change, ear discomfort, sinus pain, nasal discharge or congestion, oral lesions, soreness, dental problem NECK: no adenopathy, discomfort, change in ROM CHEST: no shortness of breath, dyspnea on exertion, wheezing, cough, sputum production or chest pain HEART: no chest pain, palpitations, syncope ABDOMEN: no nausea, vomiting, constipation, diarrhea, abdominal pain : no dysuria, urgency, frequency, history of stones, incontinence NEURO: no confusion or alteration in consciousness, slurred speech, seizure, focal weakness EXTREMITIES: See HPI HEME: no new adenopathy, bruises, petechiae PSYCH: no depression, anxiety, agitation PAIN PSYCHIATRIC EXAM: GENERAL: alert, oriented to person, place, time JUDGMENT AND INSIGHT: intact APPEARANCE: neatly groomed DEMEANOR: coooperative, not hostile, mistrustful, preoccupied, or demanding ACTIVITY: normal, not hyperactive or hypoactive, no tremors, tics EYE CONTACT: normal SPEECH: normal, rate, volume, articulation, coherence, spontaneity MOOD: normal, without overt sadness, grief, anxiety, appropriate to situation IDEATION: normal and without suicidal or homicidal ideation MEMORY: intact PHYSICAL EXAMINATION: GENERAL: well nourished and developed; no acute distress; alert and oriented x 3; intact judgement and insight HEENT: no evidence of trauma; cranial nerves intact; eyes clear EOMI; no hearing deficits apparent; nasal passages unremarkable; throat and mucous membranes clear NECK: supple without lymphadenopathy; no JVD; no thyromegaly CHEST: clear bilaterally to auscultation; normal chest movement; no rales or rhonchi HEART: regular rate and rhythm, normal S1 and S2, no murmurs, clicks, rubs, or gallops ABDOMEN: soft; nondistended; bowel sounds present; no hepatomegaly; no splenomegaly; no tenderness EXTREMITIES: no evidence of clubbing; no cyanosis; no edema; left BKA NEURO: cranial nerves intact; no focal deficits; no confusion; no tremor; sensorium normal SKIN: no rash; no skin breakdown; no decubitus lesions HEME: no bruising; no adenopathy PSYCH: no evidence of depression; no anxiety; no agitation; no apparent hallucinations BP 109/75 Pulse 101 Temp 36.6 ?C (97.9 ?F) (Temporal) Resp 16 Ht 175.3 cm (5' 9) Wt 70.3 kg (155 lb) SpO2 95% BMI 22.89 kg/m? BMI 22.89 kg/(m2) Date 06/24/19699 - 06/25/19 0659 Shift 9636-0600 7024-5799 0279-2385 24 Hour Total INTAKE IV 1000 1000 Shift Total 1000 1000 OUTPUT Shift Total Weight (kg) 70.3 70.3 70.3 70.3 Date 06/23/19699 - 06/24/1965806/24/19699 - 06/25/19 0659 Shift 3460-1113 8679-7667 2517-6472 24 Hour Total 6264-3665 3885-2486 2198-8608 24 Hour Total INTAKE PO 480 480 PO 480 480 IV 1000 1000 OR Crystalloid intake (mL) 1000 1000 Shift Total 648 124 8301 1000 OUTPUT Urine 828 1024 316 6693 Void (ml) 828 3911 359 5636 Urine Not Saved. 1 x 1 x Shift Total 828 2110 233 3198 Weight (kg) 70.3 70.3 70.3 70.3 70.3 70.3 70.3 70.3 ABNORMAL/NEW FINDINGS: NONE RADIOLOGY/DIAGNOSTICS: LABORATORY: CBC: No results for input(s): WBC, RBC, HB, HCT, PLT, MCV, MCH, MPV, RDW in the last 24 hours. CMP: Recent Labs 06/26/19 0112 NA 138 K 4.0 CHLOR 100 CO2 33* BUN 11 CREAT 0.55* GLUC 84 CA 8.8 ANION 9 Heme: No results for input(s): RETICP, ABSRETIC, LD, VIKRAM, FE, TIBC, TRANSFERSAT in the last 24 hours. 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 (HCC) Hypertension Gerd (Gastroesophageal Reflux Disease) Microalbuminuria History of Diabetic Gastroparesis Diabetic Polyneuropathy Associated With Type 1 Diabetes Mellitus (Hcc) Depression With Anxiety Charcot's Joint of Right Foot Hyperlipidemia Hep C W/O Coma, Chronic ([facility]) History of Drug Abuse in Remission ([facility]) Ivdu (Intravenous Drug User) Tobacco Abuse Left Ankle Joint Deformity Hyperglycemia Nicotine use disorder, F17.2 Closed Fracture of Left Ankle Sepsis (Hcc) Closed Trimalleolar Fracture of Left Ankle PLAN: 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 secondary to complications from left tri-malleoli are ankle fracture?dislocation, left tibia acute osteomyelitis and left leg soft tissue necrosis Patient known to our team from recent admissions Challenging pain management with history of opiate dependence and polysubstance abuse Tylenol 650 mg every 6 hours when necessary Flexeril 10 mg by mouth 3 times a day when necessary Cymbalta 20 mg daily Increase Dilaudid 0.5?1 mg IV every 2 hours when necessary breakthrough pain for 24 hours Continue oxycodone 10-15 milligram every 3 hours when necessary Lyrica 100 mg by mouth 3 times a day Senna S twice a day Jaqueline Graff MD [facility] CONSULT PROGon 06-26-2019 CONSULT PROG HNO ID: [id number] Author: Salina Geronimo Service: Endocrinology Author Type: Physician Type: Consult Progress Note Filed: 06/26/2019 9:17 AM Note Text: ENDOCRINOLOGY CONSULT PROGRESS NOTE SERVICE DATE: 06/26/2019 SERVICE TIME: 9:00 AM Subjective INTERVAL HPI: Following for DM type 1. Was initially adm with left ankle fracture after a fall, has left leg infection, cellulitis. Was discharged 06/20 on NPH 20 units bid and Humalog 10 units qac; now readmitted and is NPH 20 units bid and Humalog 8 units qac tid plus correction. Notes and orders reviewed. Readmitted with redislocation of the tibiotalar joint and worsening fracture displacement; s/p left BKA on 06/24. C/o left leg pain; no nausea, c/o dry mouth. DIET CARBOHYDRATE CONTROLLED fair po intake, on Boost bid (lunch/dinner) Recent Labs 06/26/19 0627 06/26/19 0112 06/25/19 2127 06/25/19 1647 06/25/19 0258 06/24/19 2109 GLUC -- 84 -- -- -- 222* 395* GLUCOSEMETER 94 -- 129* 106* < > -- -- < > = values in this interval not displayed. Current Facility-Administered Medications Medication Dose Route Frequency - pregabalin 100 mg cap(s) (LYRICA) 100 mg ORAL TID - lisinopril 10 mg tab(s) (ZESTRIL, PRINIVIL) 10 mg ORAL DAILY - pantoprazole DR 40 mg tab(s) (PROTONIX) 40 mg ORAL DAILY - DULoxetine 20 mg cap(s) (CYMBALTA) 20 mg ORAL DAILY - NaCl 0.9% 2-10 mL 2-10 mL INTRAVENOUS q 12 H - acetaminophen 650 mg tab(s) (TYLENOL) 650 mg ORAL q 6 H PRN - dextrose 40 % 15 g 15 g ORAL PRN Or - glucagon 1 mg injection (GLUCAGEN) 1 mg INTRAMUSCULAR PRN Or - dextrose 50 % 12.5 g injection 12.5 g INTRAVENOUS PRN - insulin lispro 8 Units pen (rapid acting) (HumaLOG KWIKPEN) 8 Units SUBCUTANEOUS w MEALS - insulin lispro 0-5 Units pen (rapid acting) (HumaLOG KWIKPEN) 0-5 Units SUBCUTANEOUS w MEALS - insulin NPH human 20 Units injection pen (intermediate acting) (NovoLIN N, HumuLIN N) 20 Units SUBCUTANEOUS BID - HYDROmorphone HCl 0.5-1 mg injection (DILAUDID) 0.5-1 mg INTRAVENOUS q 3 H PRN - cyclobenzaprine 5-10 mg tab(s) (FLEXERIL) 5-10 mg ORAL q 8 H PRN - senna-docusate 8.6-50 mg 1 tablet (SENNA-S) 1 tablet ORAL BID - ceFAZolin iv piggyback 2 g in D5W (iso-osmotic) 100 mL (ANCEF) 2 g INTRAVENOUS q 8 H - oxyCODONE IR 10-15 mg tab(s) (ROXICODONE) 10-15 mg ORAL q 3 H PRN - calcium carbonate 500 mg chewable tab(s) (TUMS) 500 mg ORAL BID PRN Objective PHYSICAL EXAM: awake, alert; no distress Lungs : clear CVS: RRR Abd: soft, non tender Ext: left BKA stump has compression bandage, 1+ edema right leg/ankle BP 125/67 Pulse 91 Temp (Src) 98.1 (Oral) Resp 18 Ht 5' 9 (1.75m) Wt 155 lb (70.3kg) SpO2 94% BMI 22.88 kg/(m2). O2 Therapy: Room Air DATA: Diagnostic tests reviewed for today's visit: Most recent labs and imaging results. 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 Home Rx is Levemir 25 units bid and Novolog 14 units tid with SSI. Was on 70/30 from 03/09 till 05/18 (while incarcerated) Saw [facility]elo in [place] in September,; insulin changed to NPH 20 units bid and humalog 10 units qac tid plus correction. Resumed NPH to 20 units bid and humalog 8 units qac tid plus correction; did not get NPH on 12 am as he was in surgery; was on D5% 1/2 NS at 50 cc/hour while NPO which was d/rl 06/24 pm; BS high after OR on 06/24; had NPH 20 units, Humalog 6 units and 1 L of NS IV given. BS better, stable now; occ <100; cont Rx. Boost supplement ordered bid. ? Cellulitis/abscess left ankle, s/p debridement and external fixation of ankle fracture on 06/10. JOANNA normal. Went to OR again on 06/15 for debridement. Adm with redislocation of the tibiotalar joint and worsening fracture displacement; to OR again on 06/24. S/p left BKA on 06/24 per Ortho. ? IVDU (intravenous drug user) POA: Yes Assessment AND Plan: hx ? Closed fracture of left ankle POA: Yes Assessment AND Plan: trimalleolar, 4 weeks ago after a fall; with external fixator ? Abnormal thyroid function test; TSH 8.2 due to non-thyroidal illness; Low free T3 , free T4 normal at 1.3 and reverse T3 pending ? SIGNATURE: Salina Geronimo MD PATIENT NAME: Tori Cantor DATE: June 26, 2019 TIME: 9:17 AM PAGER: [phone] Normal [facility] MDRD GFRon 06-26-2019 GFR/1.73 sq M predicted among non-blacks MDRD (S/P/Bld) [Vol rate/Area] mL/min/{1.73_m2} Normal >60mL/min/1. 73m2 [facility] Comment on above: Result Comment: If t he patient is , multiply the result by 1.210. Performed By: #### U DRG2 #### [facility] [address] [address] PROGRESSon 06-26-2019 PROGRESS HNO ID: [id number] Author: Akash Tillman MD Service: Infectious Disease Author Type: Physician Type: Progress Notes Filed: 06/26/2019 9:39 PM Note Text: INFECTIOUS DISEASE PROGRESS NOTE Patient Name: Tori Cantor ASSESSMENT: 1.?Left ankle fracture/ dislocation with large area of necrotic skin, fascia and muscle s/p I and D on 06/15/2019?(MSSA) and now s/p removal spanning left ankle external fixator 2) Left below knee amputation 06/24/2019 ?- now with exposed necrotic tibia 2. Left distal tibial osteomyelitis due to MSSA 3. High grade MSSA bacteremia?cleared 06/12, negative JOANNA 4. Type 1 diabetes- uncontrolled? PLAN: Continue with cefazolin for 48 hours post amputation and then will start PO Keflex 500 mg bid for 5 more days Bacteremia cleared 06/12 so 2 weeks of therapy with cefazolin ends in 48 hours as well. INTERVAL HISTORY: ROS done with pt/RN and negative unless stated. Resting in bed Afebrile Had left BKA MEDICATIONS: reviewed. Current Facility-Administered Medications Medication Dose Route Frequency - pregabalin 100 mg cap(s) (LYRICA) 100 mg ORAL TID - lisinopril 10 mg tab(s) (ZESTRIL, PRINIVIL) 10 mg ORAL DAILY - pantoprazole DR 40 mg tab(s) (PROTONIX) 40 mg ORAL DAILY - DULoxetine 20 mg cap(s) (CYMBALTA) 20 mg ORAL DAILY - NaCl 0.9% 2-10 mL 2-10 mL INTRAVENOUS q 12 H - acetaminophen 650 mg tab(s) (TYLENOL) 650 mg ORAL q 6 H PRN - dextrose 40 % 15 g 15 g ORAL PRN Or - glucagon 1 mg injection (GLUCAGEN) 1 mg INTRAMUSCULAR PRN Or - dextrose 50 % 12.5 g injection 12.5 g INTRAVENOUS PRN - insulin lispro 8 Units pen (rapid acting) (HumaLOG KWIKPEN) 8 Units SUBCUTANEOUS w MEALS - insulin lispro 0-5 Units pen (rapid acting) (HumaLOG KWIKPEN) 0-5 Units SUBCUTANEOUS w MEALS - insulin NPH human 20 Units injection pen (intermediate acting) (NovoLIN N, HumuLIN N) 20 Units SUBCUTANEOUS BID - cyclobenzaprine 5-10 mg tab(s) (FLEXERIL) 5-10 mg ORAL q 8 H PRN - senna-docusate 8.6-50 mg 1 tablet (SENNA-S) 1 tablet ORAL BID - ceFAZolin iv piggyback 2 g in D5W (iso-osmotic) 100 mL (ANCEF) 2 g INTRAVENOUS q 8 H - oxyCODONE IR 10-15 mg tab(s) (ROXICODONE) 10-15 mg ORAL q 3 H PRN - calcium carbonate 500 mg chewable tab(s) (TUMS) 500 mg ORAL BID PRN - HYDROmorphone HCl 0.5-1 mg injection (DILAUDID) 0.5-1 mg INTRAVENOUS q 2 H PRN PHYSICAL EXAM: Vital signs: BP 120/70 Pulse 91 Temp 37.1 ?C (98.8 ?F) (Temporal) Resp 16 Ht 175.3 cm (5' 9) Wt 70.3 kg (155 lb) SpO2 93% BMI 22.89 kg/m? Temp (24hrs), Av.8 ?C (98.2 ?F), Min:36.6 ?C (97.9 ?F), Max:37.1 ?C (98.8 ?F) GEN: Alert, pleasant, NAD HEENT: PERRL, moist oral mucosa, neck supple PULM: CTA bilateral, no rhonchi/wheezes. CV: RRR GI: soft, non distended, non tender, BSx4 : no chen, no CVAT EXT:?left BKA,dressing SKIN: no rash NEURO: no focal deficits, Alert and oriented x3 LINES: PICC site clean? Lab data: reviewed Recent Labs 06/26/19 0112 06/25/19 0258 06/24/19 1621 06/24/19 0336 WBC -- -- 7.31 7.09 HB -- -- 8.4* 8.5* PLT -- -- 448* 498* NA 138 136 -- 136 K 4.0 4.1 -- 4.2 CO2 33* 32 -- 32 BUN 11 8 -- 11 CREAT 0.55* 0.55* -- 0.55* Microbiology data: reviewed Imaging data: reviewed Akash Tillman MD [phone] [facility] PROGRESS HNO ID: [id number] Author: Jayy Vogel Service: Orthopaedic Surgery Author Type: Physician Type: Progress Notes Filed: 06/26/2019 5:38 PM Note Text: ORTHOPAEDIC SURGERY DAILY PROGRESS NOTE Patient Name: Tori Cantor Date of Evaluation: 06/26/2019 Admission Date: 06/21/2019 Time of Evaluation: 6:59 AM ORTHO STAFF: Agree with resident assessment and plan noted below, except where changes made. Jayy Vogel MD ASSESSMENT: 44yo M POD#2 s/p L BKA PLAN: - PT/OT: Non Weight Bearing left lower - Appreciate pain management recommendations - DVT Prophylaxis: SCD on the RLE - GI Prophylaxis: Protonox 40mg once daily - Post-op Abx: Ancef 1g IV x 48 hours, switch to Keflex 500mg BID x 7 days on 06/27 - Dressing: Dry dressing. Proxio to be consulted for RRD on POD#3 (06/27) - Appreciate endocrinology recommendations - Discharge planning: [facility] INTERVAL HPI: Patient monitored, no new events overnight. OBJECTIVE: BP 125/67 Pulse 91 Temp 36.7 ?C (98.1 ?F) (Oral) Resp 18 Ht 175.3 cm (5' 9) Wt 70.3 kg (155 lb) SpO2 94% BMI 22.89 kg/m? Intake/Output Summary (Last 24 hours) 06/25 2300 - 06/26 0659 In: 300 [PO:200; IV:100] Out: 700 [Urine:700] Exam: General: NAD, AAOx3 Extremities: Left Lower Extremity: Dressing clean, dry and intact. Labs: BMP: Sodium 138 06/26/2019 Potassium 4.0 06/26/2019 Chloride 100 06/26/2019 CO2 33 06/26/2019 BUN 11 06/26/2019 Creatinine 0.55 06/26/2019 Glucose 84 06/26/2019 CBC: WBC 7.31 06/24/2019 Hemoglobin 8.4 06/24/2019 Hematocrit 26.5 06/24/2019 Platelet Count 448 06/24/2019 Sarath Laureano MD Orthopaedic Surgery, PGY-5 Pager: [phone] Please page [phone] from 5p-6a and on weekends for any issues. 06/26/2019 6:59 AM Normal [facility] THERAPY NTon 06-26-2019 THERAPY NT HNO ID: [id number] Author: Kaveh Ha) Joshua Service: Physical Therapy Author Type: Self Contained Behavior Unit Teacher Type: Therapy (PT/OT/Speech/Resp) Filed: 06/26/2019 12:17 PM Note Text: ----- Attestation signed by Sugey Azevedo at 06/27/2019 11:19 AM I reviewed and agree with the documentation corresponding to this therapy visit. SIGNATURE: Sugey Azevedo PT DATE: June 27, 2019 TIME: 11:19 AM ----- Physical Therapy Treatment SERVICE DATE: 06/26/2019 SERVICE TIME: 1118 to 1141 ROOM: [place] [address] Recommended Discharge Disposition: Subacute/SNF Recommended Discharge Disposition Comments: Pt with significant limitations in functional mobility requiring physical assist or he is unsafe to perform. Pt will need SNF at d/c to continue working on limitations for goal of eventual return home. Justification For Post Acute Needs: Anticipate that patient will require daily (5x/wk) skilled therapy in a post-acute facility setting at the time of acute hospital discharge PT Recommendations to Nursing: Ambulate with device;To bathroom;Transfer to/from chair;OOB for Meals;With assist of 1 person Device: Wheeled Walker PT 6 Clicks Score: 17 Precautions/Activity Restrictions: Weight Bearing Restrictions Precaution/Activity Restriction Comments: NWB Extremity With Weight Bearing Restricted: Left Lower Extremity Left Lower Extremity Weight Bearing Status: NWB ASSESSMENT : Patient presents with ongoing PT goals--patient with improved gait distances this session, patient continues to require minimal assist with mobility for proper safety/function--patient easily distracted by conversation, needing cuing to stay on task. Patient continues to be recommended for subacute/SNF to improve strength, balance, endurance, increased ambulation distances with normalize gait pattern, and increased independence with functional task performance/mobility to prior level of function. Patient Disposition at Start of Session: Supine in Bed;Call Hines in Reach Patient Disposition at End of Session: OOB in Chair;Call Hines in Reach Tolerated Full Session Physical Therapy Problem List: Education Deficit;Pain;Safety Deficits;Impaired Self Care;Decreased Range Of Motion;Decreased Strength;Functional Mobility Impairment Patient /Caregiver Goals: Walk;Go To Rehab Goals for Plan of Care: Able to perform HEP with: Verbal Cues Only Transfer sit to/from stand with: Contact Guard Assistance Ambulate with: Contact Guard Assistance Distance: 40 Device: Wheeled Walker Goal: pt voices need to avoid knee flexion resting position on L knee Progress Toward Goals: Progressing as expected Rehab Potential: Good PLAN: Treatment Frequency (times per week): 7(4-7) Current admission Treatment Interventions: Education;Joint Mobility;Strengthening;Fu nctional Mobility Training Plan of Care developed with: Patient TREATMENT INTERVENTIONS: Therapy Diagnosis: Reduced mobility-other;Abnormalit ies of gait and mobility-other;General symptoms and signs-other Interventions Provided: Therapeutic Exercise (53770);Therapeutic Activity (60463);Gait Training (74312) Therapeutic Exercise (63100) Treatment Minutes: 8 1 unit Skilled Intervention(s): bilateral LE strengthening in seated--LAQs, hip marching--2x20 each. Cuing for proper LE alignment and ROM, Cuing for slow controlled movements and proper LE alignment to decreased externally rotated left hip. Therapeutic Activity (01965) Treatment Minutes: 5 0 units Skilled Intervention(s): Instructed patient in supine to and from sit pushing with upper extremities to sit up Instruction in sit to and from stand technique with proper hand placement and body positioning at edge of bed/chair--cuing for proper UE support 1 on bed, 1 on walker (left UE) as needed--cuing for proper proximity to seated surfaces with LEs touching, slow controlled movements to from sit/stand using UEs and RLE to control motion. EOB sitting balance patient performing donning shorts and right shoe, no UE support, cuing for proper forward trunk leaning to prevent retropulsion. Patient educated on keeping left leg straight on pillow (no pillow behind knee) to promote knee extension, Cuing to keep hip straight throughout the day, laying flat to avoid contractures with hip in neutral position, not externally rotated. Gait Training ([id number]) Treatment Minutes: 10 1 unit Skilled Intervention(s): Instruction in sit to stand technique with proper hand placement and body positioning at edge of bed/chair, Instruction in stand to sit technique with LE's touching chair/bed and reaching back for surface, Instruction in sequencing, gait pattern and Instruction in correction of gait deviations--cuing for proper UE support (keeping elbow straight with hopping) to improve pushoff, proper hop step on RLE, proper foot clearance and negotiating around objects in room. Total Timed Code Treatment Minutes: 23 Total Treatment Time (minutes): 23 SUBJECTIVE: Current Hospital Course: Chart reviewed and no significant medical updates relevant to therapy were noted Relevant Past Medical History: DM 1, L ankle fx, sepsis, IV drug use, HLD, Hep C, GERd Patient Report: patient stated feeling fine today. Home Environment Patient Lives With: Facility Care(SNF) Assistance Available: 24 Hour Equipment Owned: Cane;Wheeled Walker;Rollator([place] boot (doesnt wear)) Prior Functional Level: Required Assistance Assistance Required With: Transfers;Ambulation;Self Care;Transportation Prior Functional Level Comments: working with PT/OT at facility OBJECTIVE: CURRENT FUNCTIONAL STATUS: Current Functional Mobility Assist Level Additional Information Rolling Minimal Assistance Supine to Sit Contact Guard Assistance Sit to Supine Contact Guard Assistance Scooting Contact Guard Assistance Sit to Stand Minimal Assistance Stand to Sit Minimal Assistance Bed to Chair Minimal Assistance Bed To Chair Transfer Type: Stand Pivot Bed To Chair Transfer Equipment: Gait Belt;Wheeled Walker Toilet/Commode Gait Minimal Assistance Gait Device: Wheeled Walker Gait Distance (feet): 10'x3 Stairs Curb Step Car Transfer Gait Deviations Left Lower Extremity: (left BKA) General Gait Deviations: Argelia decreased;Step length decreased;Flexed trunk posture;Difficulty changing direction/turning;Non-fun ctional gait speed(hop step on RLE) JH-HLM: 6: Walk 10 steps or more Please see discipline specific clinical documentation flowsheet for complete details for this therapy evaluation/treatment. SIGNATURE: Kaveh Lewis PTA PATIENT NAME: Tori Cantor DATE: June 26, 2019 TIME: 12:09 PM Normal [facility] Basic Panelon 06-25-2019 Creatinine [Mass/Vol] 0.55 mg/dL Low 0.67-1.17 [facility] Comment on above: Performed By: #### C BC1 #### [address] [address] Anion gap [Moles/Vol] 8 mmol/L Normal 8-16 [facility] Comment on above: Performed By: #### C BC1 #### [address] [address] CO2 [Moles/Vol] 32 mmol/L Normal 21-32 [facility] Comment on above: Performed By: #### C BC1 #### [facility] [address] [place], [place] [address] Urea nitrogen [Mass/Vol] 8 mg/dL Normal 7-18 [facility] Comment on above: Performed By: #### C BC1 #### [facility] [address] [place], [place] [address] Calcium [Mass/Vol] 8.5 mg/dL Normal 8.5-10.1 [facility] Comment on above: Performed By: #### C BC1 #### [address] [address] Glucose [Mass/Vol] 222 mg/dL High 70-99 [facility] Comment on above: Performed By: #### C BC1 #### [facility] [address] [place], [place] [address] Chloride [Moles/Vol] 100 mmol/L Normal 98-107 [facility] Comment on above: Performed By: #### C BC1 #### [facility] [address] [place], [place] [address] Potassium [Moles/Vol] 4.1 mmol/L Normal 3.5-5.1 [facility] Comment on above: Performed By: #### C BC1 #### [facility] [address] [place], [place] [address] Sodium [Moles/Vol] 136 mmol/L Normal 136-145 [facility] Comment on above: Performed By: #### C BC1 #### [facility] [address] [place], [place] [address] CONSULTon 06-25-2019 CONSULT HNO ID: [id number] Author: Jaqueline Graff Service: Pain Management Author Type: Physician Type: Consults Filed: 06/25/2019 12:55 PM Note Text: Name: TORI CANTOR Age: [age] year old PAIN MANAGEMENT: 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, hx left trimalleolar ankle francture; MSSA bacteremia with tibia/fibular osteomyelitis; IVDA Pain Description: Patient complains of bad squeezing pain at BKA stump site; phantom pain as well 24H Pain Regimen: Dilaudid 1 mg times 7 doses IV Tylenol 650 mg every 6 hours when necessary Flexeril 10 mg every 8 hours when necessary ?1 Cymbalta 20 mg daily [id number] milligram every 3 hours when necessary 10 mg ?5 Lyrica 100 mg 3 times a day ?2 Interval HPI: Pain increased after surgery; Transferred to chair with PT Subjective HPI: 44yo male with history of IV drug abuse, 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 Patient was readmitted to orthopedic service with redislocation of the tibiotalar joint, exposed necrotic tibia and worsening fracture displacement. He underwent left BKA with removal of external fixator 06/24. Patient is known to our team from his recent admission 06/09?06/20 for MSSA bacteremia and osteomyelitis. He was discharged to SNF on oxycodone 5 mg #30 ? Prior to admission patient was taking Lyrica 100 mg by mouth 3 times a day. He smokes 1 pack per day. He denies alcohol. He does use marijuana infrequently. He states he had done street drugs for 30 years and then he last used a while ago. He has a history of IV cocaine and methamphetamine. He also admits to history of frequent IV fentanyl use. OARRS Review: Summary Total Prescriptions: 13 Total Prescribers: 5 Total Pharmacies: 2 Narcotics* ?(excluding buprenorphine) Current Qty: 6 Current MME/day: 45.00 30 Day Avg MME/day: 13.50 Sedatives* Current Qty: 18 Current LME/day: 2.01 30 Day Avg LME/day: 1.88 Buprenorphine* Current Qty: 0 Current mg/day: 0.00 30 Day Avg mg/day: 0.00 Rx Data Total Prescriptions: 13 ?? 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 06/21/2019 2 06/15/2019 Oxycodone Hcl 5 MG Tablet 30.00 5 Mo Sca [id number] Pha ([id number]) 0 45.00 MME Private Pay [place] 06/21/2019 2 06/21/2019 Pregabalin 100 MG Capsule 30.00 10 Pe Ailyn [id number] Pha ([id number]) 4 2.01 LME Private [place] 06/06/2019 2 06/06/2019 Oxycodone-Acetaminophen 5-325 30.00 7 Pe Ailyn [id number] Pha ([id number]) 0 32.14 MME Private Pay [place] 06/06/2019 2 06/06/2019 Pregabalin 100 MG Capsule 30.00 10 Pe Ailyn [id number] Pha ([id number]) 4 2.01 LME Private Pay [place] 06/01/2019 2 06/01/2019 Pregabalin 150 MG Capsule 30.00 15 Pe Ailyn [id number] Pha ([id number]) 4 2.01 LME Private Pay [place] 05/31/2019 2 05/31/2019 Oxycodone-Acetaminophen 5-325 6.00 1 Da [facility] [id number] Pha ([id number]) 0 45.00 MME Private Pay [place] Current Facility-Administered Medications Medication Dose Route Frequency Provider Last Rate Last Dose - ceFAZolin iv piggyback 2 g in D5W (iso-osmotic) 100 mL (ANCEF) 2 g INTRAVENOUS q 8 H Alfred (Res) Maritza - HYDROmorphone HCl 0.5-1 mg injection (DILAUDID) 0.5-1 mg INTRAVENOUS q 3 H PRN Kenia K Scantling 1 mg at 06/25/19 1152 - oxyCODONE IR 10 mg tab(s) (ROXICODONE) 10 mg ORAL q 3 H PRN Kenia K Scantling 10 mg at 06/25/19 1002 - cyclobenzaprine 5-10 mg tab(s) (FLEXERIL) 5-10 mg ORAL q 8 H PRN Kenia K Scantling 10 mg at 06/24/19 2213 - senna-docusate 8.6-50 mg 1 tablet (SENNA-S) 1 tablet ORAL BID Kenia K Scantling 1 tablet at 06/25/19 0854 - insulin lispro 8 Units pen (rapid acting) (HumaLOG KWIKPEN) 8 Units SUBCUTANEOUS w MEALS Salina Midha 6 Units at 06/25/19 1152 - insulin lispro 0-5 Units pen (rapid acting) (HumaLOG KWIKPEN) 0-5 Units SUBCUTANEOUS w MEALS Jayy Vogel 1 Units at 06/25/19 0633 - insulin NPH human 20 Units injection pen (intermediate acting) (NovoLIN N, HumuLIN N) 20 Units SUBCUTANEOUS BID Jayy Palmer Dinicola 20 Units at 06/25/19 0816 - pregabalin 100 mg cap(s) (LYRICA) 100 mg ORAL TID Jayy Palmer Dinicola 100 mg at 06/25/19 0853 - lisinopril 10 mg tab(s) (ZESTRIL, PRINIVIL) 10 mg ORAL DAILY Jayy Palmer Dinalberto 10 mg at 06/25/19 0854 - pantoprazole DR 40 mg tab(s) (PROTONIX) 40 mg ORAL DAILY Jayy Palmer Dinalberto 40 mg at 06/25/19 0856 - DULoxetine 20 mg cap(s) (CYMBALTA) 20 mg ORAL DAILY Jayy Palmer Dinicola 20 mg at 06/25/19 0854 - NaCl 0.9% 2-10 mL 2-10 mL INTRAVENOUS q 12 H Jayy Palmer Dinicola 10 mL at 06/25/19 0854 - acetaminophen 650 mg tab(s) (TYLENOL) 650 mg ORAL q 6 H PRN Jayy Palmer Dinicola 650 mg at 06/23/19 0216 - dextrose 40 % 15 g 15 g ORAL PRN Jayy Vogel Or - glucagon 1 mg injection (GLUCAGEN) 1 mg INTRAMUSCULAR PRN Jayy Palmer Dinalberto Or - dextrose 50 % 12.5 g injection 12.5 g INTRAVENOUS PRN Jayy Vogel acetaminophen (TYLENOL) 325 mg tablet, Take 650 mg by mouth every 6 hours as needed (mild pain)., Disp: , Rfl: acetaminophen (TYLENOL) 325 mg tablet, Take 650 mg by mouth every 6 hours as needed for Fever., Disp: , Rfl: acetaminophen (TYLENOL) 325 mg tablet, Take 650 mg by mouth every 6 hours as needed (mild pain)., Disp: , Rfl: bisacodyl (DULCOLAX) 10 mg supp, 10 mg by RECTAL route once daily as needed for Constipation., Disp: , Rfl: bisacodyl EC (DULCOLAX, BISACODYL,) 5 mg EC tablet, Take 5 mg by mouth once daily as needed for Constipation., Disp: , Rfl: cyclobenzaprine (FLEXERIL) 5 mg tablet, Take 5 mg by mouth every 8 hours as needed for Muscle Spasm., Disp: , Rfl: levoFLOXacin (LEVAQUIN) 750 mg tablet, Take 750 mg by mouth once daily. For 14 days. Course of therapy initiated on 06/09/2019. Scheduled to end on 06/23/2019., Disp: , Rfl: lisinopril (ZESTRIL, PRINIVIL) 10 mg tablet, Take 10 mg by mouth once daily., Disp: , Rfl: pregabalin (LYRICA) 100 mg capsule, Take 100 mg by mouth three times daily., Disp: , Rfl: magnesium hydroxide (MOM) 400 mg/5 mL suspension, Take 30 mL by mouth once daily as needed for Constipation., Disp: , Rfl: naloxone 4 mg/actuation nasal spray (NARCAN), Use 1 spray alternating nostrils every 2 minutes as needed for anxiety., Disp: , Rfl: ondansetron (ZOFRAN) 4 mg tablet, Take 4 mg by mouth every 6 hours as needed (nausea)., Disp: , Rfl: oxyCODONE IR (ROXICODONE) 5 mg immediate release tablet, Take 5 mg by mouth every 4 hours as needed for Pain. For 5 days. Course initiated on 06/21/2019. Scheduled to end on 06/26/2019., Disp: , Rfl: oxyCODONE IR (ROXICODONE) 5 mg immediate release tablet, Take 5 mg by mouth every 6 hours as needed (severe pain). For 5 days. Course initiated on 06/21/2019. Scheduled to end on 06/26/2019., Disp: , Rfl: oxyCODONE-acetaminophen (PERCOCET) 5-325 mg tablet, Take 1 tablet by mouth every 6 hours as needed for Pain., Disp: , Rfl: senna (SENNA) 8.6 mg tab, Take 17.2 mg by mouth twice daily., Disp: , Rfl: DULoxetine (CYMBALTA) 30 mg capsule, Take 30 mg by mouth once daily. For depression., Disp: , Rfl: doxycycline monohydrate 100 mg tablet, Take 100 mg by mouth twice daily. For 14 days. Course of therapy initiated on 06/09/2019. Scheduled to end on 06/23/2019., Disp: , Rfl: DULoxetine (CYMBALTA) 20 mg capsule, Take 20 mg by mouth once daily. For anxiety., Disp: , Rfl: insulin lispro (HUMALOG KWIKPEN INSULIN) 100 unit/mL inpn, Inject as per sliding scale subcutaneously before meals. If blood sugars are: 100-150 inject 2 unit(s). 151-200 inject 4 unit(s). 201-250 inject 6 unit(s). 251-300 inject 8 unit(s). 301-350 inject 10 unit(s). 351-400 inject 12 unit(s). 401-450 inject 14 unit(s). For blood glucose <70 or >500 call MD., Disp: , Rfl: insulin lispro (HUMALOG KWIKPEN INSULIN) 100 unit/mL inpn, Inject as per sliding scale subcutaneously before meals. If blood sugars are: 201-225 inject 4 unit(s). 226-250 inject 5 unit(s). 251-275 inject 6 unit(s). 276-300 inject 7 unit(s). 301-325 inject 8 unit(s). 326-350 inject 9 unit(s). 351-999 inject 10 unit(s) and notify provider., Disp: , Rfl: ibuprofen (MOTRIN) 400 mg tablet, Take 400 mg by mouth every 6 hours as needed., Disp: , Rfl: insulin NPH (HumuLIN N,NovoLIN N) pen, Inject 20 Units subcutaneously twice daily., Disp: , Rfl: insulin glargine (LANTUS SOLOSTAR U-100 INSULIN) 100 unit/mL (3 mL) inpn, Inject 24 Units subcutaneously twice daily., Disp: , Rfl: polyethylene glycol 3350 (MIRALAX) 17 gram/dose powder, Take 17 g by mouth twice daily., Disp: , Rfl: enoxaparin (LOVENOX) 40 mg/0.4 mL syrg, Inject 40 mg subcutaneously every 24 hours., Disp: , Rfl: pantoprazole DR (PROTONIX) 40 mg tablet, Take 40 mg by mouth once daily. , Disp: , Rfl: , 05/26/2019 ceFAZolin (ANCEF) 2 gram/100 mL in dextrose (iso-osmotic), Inject 100 mL intravenously every 8 hours., Disp: 9000 mL, Rfl: 1, Unknown at Unknown time Social History Tobacco Use - Smoking status: Current Every Day Smoker Packs/day: 1.00 Types: Cigarettes - Smokeless tobacco: Never Used Substance Use Topics - Alcohol use: Yes Comment: socially - Drug use: Yes Types: Cocaine, Amphetamines Comment: hist of cocaine and marajuana use, fentanyl FAMILY HISTORY Problem Relation Age of Onset - Hypertension Mother - Diabetes Mother - Stroke Mother - Heart Mother CHF - Cataract Mother - Hypertension Father - COPD Father - Emphysema Father PAST SURGICAL HISTORY Procedure Laterality Date - IR VASCULAR ACCESS TEAM PICC INSERTION RADIO 06/17/2019 - NONE ROS: All of the following reviewed and negative except as noted below: GENERAL: no fever, chills, sweats, weight loss, fatigue, generalized weakness HEENT: no headache, vision changes, eye discomfort, hearing change, ear discomfort, sinus pain, nasal discharge or congestion, oral lesions, soreness, dental problem NECK: no adenopathy, discomfort, change in ROM CHEST: no shortness of breath, dyspnea on exertion, wheezing, cough, sputum production or chest pain HEART: no chest pain, palpitations, syncope ABDOMEN: no nausea, vomiting, constipation, diarrhea, abdominal pain : no dysuria, urgency, frequency, history of stones, incontinence NEURO: no confusion or alteration in consciousness, slurred speech, seizure, focal weakness EXTREMITIES: See HPI HEME: no new adenopathy, bruises, petechiae PSYCH: no depression, anxiety, agitation PAIN PSYCHIATRIC EXAM: GENERAL: alert, oriented to person, place, time JUDGMENT AND INSIGHT: intact APPEARANCE: neatly groomed DEMEANOR: coooperative, not hostile, mistrustful, preoccupied, or demanding ACTIVITY: normal, not hyperactive or hypoactive, no tremors, tics EYE CONTACT: normal SPEECH: normal, rate, volume, articulation, coherence, spontaneity MOOD: normal, without overt sadness, grief, anxiety, appropriate to situation IDEATION: normal and without suicidal or homicidal ideation MEMORY: intact PHYSICAL EXAMINATION: GENERAL: well nourished and developed; no acute distress; alert and oriented x 3; intact judgement and insight HEENT: no evidence of trauma; cranial nerves intact; eyes clear EOMI; no hearing deficits apparent; nasal passages unremarkable; throat and mucous membranes clear NECK: supple without lymphadenopathy; no JVD; no thyromegaly CHEST: clear bilaterally to auscultation; normal chest movement; no rales or rhonchi HEART: regular rate and rhythm, normal S1 and S2, no murmurs, clicks, rubs, or gallops ABDOMEN: soft; nondistended; bowel sounds present; no hepatomegaly; no splenomegaly; no tenderness EXTREMITIES: no evidence of clubbing; no cyanosis; no edema; left BKA NEURO: cranial nerves intact; no focal deficits; no confusion; no tremor; sensorium normal SKIN: no rash; no skin breakdown; no decubitus lesions HEME: no bruising; no adenopathy PSYCH: no evidence of depression; no anxiety; no agitation; no apparent hallucinations BP 111/72 Pulse 106 Temp 37.4 ?C (99.3 ?F) (Oral) Resp 16 Ht 175.3 cm (5' 9) Wt 70.3 kg (155 lb) SpO2 97% BMI 22.89 kg/m? BMI 22.89 kg/(m2) Date 06/24/19699 - 06/25/19 0659 Shift 7970-3958 5204-6748 7831-1159 24 Hour Total INTAKE IV 1000 1000 Shift Total 1000 1000 OUTPUT Shift Total Weight (kg) 70.3 70.3 70.3 70.3 Date 06/23/19699 - [birth year]/1959 06/24/19699 - 06/25/19 0659 Shift 6655-9622 7278-4474 5744-5733 24 Hour Total 4681-7220 7994-0877 4514-0748 24 Hour Total INTAKE PO 480 480 PO 480 480 IV 1000 1000 OR Crystalloid intake (mL) 1000 1000 Shift Total 332 602 7458 1000 OUTPUT Urine 828 2960 580 0396 Void (ml) 828 6937 950 2104 Urine Not Saved. 1 x 1 x Shift Total 828 2035 406 7873 Weight (kg) 70.3 70.3 70.3 70.3 70.3 70.3 70.3 70.3 ABNORMAL/NEW FINDINGS: NONE RADIOLOGY/DIAGNOSTICS: LABORATORY: CBC: Recent Labs 06/24/19 1621 WBC 7.31 RBC 2.94* HB 8.4* HCT 26.5* PLT 448* MCV 90.1 MCH 28.6 MPV 9.5 RDW 14.1 CMP: Recent Labs 06/25/19 0258 NA 136 K 4.1 CHLOR 100 CO2 32 BUN 8 CREAT 0.55* GLUC 222* CA 8.5 ANION 8 Heme: No results for input(s): RETICP, ABSRETIC, LD, VIKRAM, FE, TIBC, TRANSFERSAT in the last 24 hours. 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 (HCC) Hypertension Gerd (Gastroesophageal Reflux Disease) Microalbuminuria History of Diabetic Gastroparesis Diabetic Polyneuropathy Associated With Type 1 Diabetes Mellitus (Hcc) Depression With Anxiety Charcot's Joint of Right Foot Hyperlipidemia Hep C W/O Coma, Chronic ([facility]) History of Drug Abuse in Remission ([facility]) Ivdu (Intravenous Drug User) Tobacco Abuse Left Ankle Joint Deformity Hyperglycemia Nicotine use disorder, F17.2 Closed Fracture of Left Ankle Sepsis (Hcc) Closed Trimalleolar Fracture of Left Ankle PLAN: 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 secondary to complications from left tri-malleoli are ankle fracture?dislocation, left tibia acute osteomyelitis and left leg soft tissue necrosis Patient known to our team from recent admissions Challenging pain management with history of opiate dependence and polysubstance abuse Tylenol 650 mg every 6 hours when necessary Flexeril 10 mg by mouth 3 times a day when necessary Cymbalta 20 mg daily Dilaudid 0.5?1 mg IV every 3 hours when necessary breakthrough pain Change oxycodone 10-15 milligram every 3 hours when necessary Lyrica 100 mg by mouth 3 times a day Senna S twice a day Jaqueline Graff MD [facility] CONSULT PROGon 06-25-2019 CONSULT PROG HNO ID: [id number] Author: Salina Geronimo Service: Endocrinology Author Type: Physician Type: Consult Progress Note Filed: 06/25/2019 9:59 AM Note Text: ENDOCRINOLOGY CONSULT PROGRESS NOTE SERVICE DATE: 06/25/2019 SERVICE TIME: 9:45 AM Subjective INTERVAL HPI: Following for DM type 1. Was initially adm with left ankle fracture after a fall, has left leg infection, cellulitis. Was discharged 06/20 on NPH 20 units bid and Humalog 10 units qac; now readmitted and is NPH 20 units bid and Humalog 8 units qac tid plus correction. Notes and orders reviewed. Readmitted with redislocation of the tibiotalar joint and worsening fracture displacement; s/p left BKA on 06/24. C/o severe left leg phantom pain; no nausea. DIET CARBOHYDRATE CONTROLLED Recent Labs 06/25/19 0538 06/25/19 0258 06/24/19 2109 06/24/19 2101 06/24/19 1550 06/24/19 0336 GLUC -- 222* 395* -- -- -- 160* GLUCOSEMETER 190* -- -- >400* 336* < > -- < > = values in this interval not displayed. Current Facility-Administered Medications Medication Dose Route Frequency - pregabalin 100 mg cap(s) (LYRICA) 100 mg ORAL TID - lisinopril 10 mg tab(s) (ZESTRIL, PRINIVIL) 10 mg ORAL DAILY - pantoprazole DR 40 mg tab(s) (PROTONIX) 40 mg ORAL DAILY - DULoxetine 20 mg cap(s) (CYMBALTA) 20 mg ORAL DAILY - NaCl 0.9% 2-10 mL 2-10 mL INTRAVENOUS q 12 H - acetaminophen 650 mg tab(s) (TYLENOL) 650 mg ORAL q 6 H PRN - dextrose 40 % 15 g 15 g ORAL PRN Or - glucagon 1 mg injection (GLUCAGEN) 1 mg INTRAMUSCULAR PRN Or - dextrose 50 % 12.5 g injection 12.5 g INTRAVENOUS PRN - insulin lispro 8 Units pen (rapid acting) (HumaLOG KWIKPEN) 8 Units SUBCUTANEOUS w MEALS - insulin lispro 0-5 Units pen (rapid acting) (HumaLOG KWIKPEN) 0-5 Units SUBCUTANEOUS w MEALS - insulin NPH human 20 Units injection pen (intermediate acting) (NovoLIN N, HumuLIN N) 20 Units SUBCUTANEOUS BID - HYDROmorphone HCl 0.5-1 mg injection (DILAUDID) 0.5-1 mg INTRAVENOUS q 3 H PRN - oxyCODONE IR 10 mg tab(s) (ROXICODONE) 10 mg ORAL q 3 H PRN - cyclobenzaprine 5-10 mg tab(s) (FLEXERIL) 5-10 mg ORAL q 8 H PRN - senna-docusate 8.6-50 mg 1 tablet (SENNA-S) 1 tablet ORAL BID - ceFAZolin iv piggyback 2 g in D5W (iso-osmotic) 100 mL (ANCEF) 2 g INTRAVENOUS q 8 H Objective PHYSICAL EXAM: awake, alert; in mild distress due to pain Lungs : clear CVS: RRR Abd: soft, non tender Ext: left BKA stump has compression bandage, 1+ edema right leg/ankle BP 141/88 Pulse 99 Temp (Src) 97.5 (Temporal) Resp 16 Ht 5' 9 (1.75m) Wt 155 lb (70.3kg) SpO2 97% BMI 22.88 kg/(m2). O2 Therapy: Room Air, Liters: 9 DATA: Diagnostic tests reviewed for today's visit: Most recent labs and imaging results. 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 Home Rx is Levemir 25 units bid and Novolog 14 units tid with SSI. Was on 70/30 from 03/09 till 05/18 (while incarcerated) Saw Endo in [place] in September,; insulin changed to NPH 20 units bid and humalog 10 units qac tid plus correction. Resumed NPH to 20 units bid and humalog 8 units qac tid plus correction; did not get NPH on 12/6 am as he was in surgery; was on D5% 1/2 NS at 50 cc/hour while NPO which was d/rl last pm; BS high last pm/hs; had NPH 20 units, Humalog 6 units and 1 L of NS iv. Now BS better, cont Rx. Pt wants Boost, will order bid. ? Cellulitis/abscess left ankle, s/p debridement and external fixation of ankle fracture on 06/10. JOANNA normal. Went to OR again on 06/15 for debridement. Adm with redislocation of the tibiotalar joint and worsening fracture displacement; to OR again on 06/24. S/p left BKA on 06/24 per Ortho. ? IVDU (intravenous drug user) POA: Yes Assessment AND Plan: hx ? Closed fracture of left ankle POA: Yes Assessment AND Plan: trimalleolar, 4 weeks ago after a fall; with external fixator ? Abnormal thyroid function test; TSH 8.2 due to non-thyroidal illness; Low free T3 , free T4 normal at 1.3 and reverse T3 pending ? SIGNATURE: Salina Geronimo MD PATIENT NAME: Tori Cantor DATE: June 25, 2019 TIME: 9:59 AM PAGER: [phone] Normal [facility] PROGRESSon 06-25-2019 PROGRESS HNO ID: [id number] Author: Akash Tillman MD Service: Infectious Disease Author Type: Physician Type: Progress Notes Filed: 06/26/2019 9:39 PM Note Text: INFECTIOUS DISEASE PROGRESS NOTE Patient Name: Tori Cantor ASSESSMENT: 1.?Left ankle fracture/ dislocation with large area of necrotic skin, fascia and muscle s/p I and D on 06/15/2019?(MSSA) and now s/p removal spanning left ankle external fixator 2) Left below knee amputation 06/24/2019 ?- now with exposed necrotic tibia 2. Left distal tibial osteomyelitis due to MSSA 3. High grade MSSA bacteremia?cleared 06/12, negative JOANNA 4. Type 1 diabetes- uncontrolled? PLAN: Continue with cefazolin for 48 hours post amputation and then will start PO Keflex 500 mg bid for 6 more days Bacteremia cleared 06/12 so 2 weeks of therapy with cefazolin ends in 48 hours as well. INTERVAL HISTORY: ROS done with pt/RN and negative unless stated. Resting in bed Afebrile Had left BKA MEDICATIONS: reviewed. Current Facility-Administered Medications Medication Dose Route Frequency - pregabalin 100 mg cap(s) (LYRICA) 100 mg ORAL TID - lisinopril 10 mg tab(s) (ZESTRIL, PRINIVIL) 10 mg ORAL DAILY - pantoprazole DR 40 mg tab(s) (PROTONIX) 40 mg ORAL DAILY - DULoxetine 20 mg cap(s) (CYMBALTA) 20 mg ORAL DAILY - NaCl 0.9% 2-10 mL 2-10 mL INTRAVENOUS q 12 H - acetaminophen 650 mg tab(s) (TYLENOL) 650 mg ORAL q 6 H PRN - dextrose 40 % 15 g 15 g ORAL PRN Or - glucagon 1 mg injection (GLUCAGEN) 1 mg INTRAMUSCULAR PRN Or - dextrose 50 % 12.5 g injection 12.5 g INTRAVENOUS PRN - insulin lispro 8 Units pen (rapid acting) (HumaLOG KWIKPEN) 8 Units SUBCUTANEOUS w MEALS - insulin lispro 0-5 Units pen (rapid acting) (HumaLOG KWIKPEN) 0-5 Units SUBCUTANEOUS w MEALS - insulin NPH human 20 Units injection pen (intermediate acting) (NovoLIN N, HumuLIN N) 20 Units SUBCUTANEOUS BID - cyclobenzaprine 5-10 mg tab(s) (FLEXERIL) 5-10 mg ORAL q 8 H PRN - senna-docusate 8.6-50 mg 1 tablet (SENNA-S) 1 tablet ORAL BID - ceFAZolin iv piggyback 2 g in D5W (iso-osmotic) 100 mL (ANCEF) 2 g INTRAVENOUS q 8 H - oxyCODONE IR 10-15 mg tab(s) (ROXICODONE) 10-15 mg ORAL q 3 H PRN - calcium carbonate 500 mg chewable tab(s) (TUMS) 500 mg ORAL BID PRN - HYDROmorphone HCl 0.5-1 mg injection (DILAUDID) 0.5-1 mg INTRAVENOUS q 2 H PRN PHYSICAL EXAM: Vital signs: BP 120/70 Pulse 91 Temp 37.1 ?C (98.8 ?F) (Temporal) Resp 16 Ht 175.3 cm (5' 9) Wt 70.3 kg (155 lb) SpO2 93% BMI 22.89 kg/m? Temp (24hrs), Av.8 ?C (98.2 ?F), Min:36.6 ?C (97.9 ?F), Max:37.1 ?C (98.8 ?F) GEN: Alert, pleasant, NAD HEENT: PERRL, moist oral mucosa, neck supple PULM: CTA bilateral, no rhonchi/wheezes. CV: RRR GI: soft, non distended, non tender, BSx4 : no chen, no CVAT EXT:?left BKA,dressing SKIN: no rash NEURO: no focal deficits, Alert and oriented x3 LINES: PICC site clean? Lab data: reviewed Recent Labs 06/26/19 0112 06/25/19 0258 06/24/19 1621 06/24/19 0336 WBC -- -- 7.31 7.09 HB -- -- 8.4* 8.5* PLT -- -- 448* 498* NA 138 136 -- 136 K 4.0 4.1 -- 4.2 CO2 33* 32 -- 32 BUN 11 8 -- 11 CREAT 0.55* 0.55* -- 0.55* Microbiology data: reviewed Imaging data: reviewed Akash Tillman MD [phone] [facility] PROGRESS HNO ID: [id number] Author: Jayy Vogel Service: Orthopaedic Surgery Author Type: Physician Type: Progress Notes Filed: 06/25/2019 8:35 AM Note Text: Orthopaedic INPATIENT PROGRESS NOTE ORTHO STAFF: Patient seen and examined. Agree with resident assessment and plan noted below. Plan of Care performed with nursing staff. Jayy Vogel MD A/P: 44 YO M POD1 s/p L BKA -Non-weight bearing left lower extremity with physical and occupational therapy. -[facility] referral for RRD placement prior to discharge POD#2-3. -ID recs: 48 hours IV Ancef post-surgery then will start PO Keflex 500mg BID x 7 days -Pain management consult for pain control with history of substance abuse. -Anticipate discharge to SNF after hospital stay. -Remains high risk for revision amputation to higher level based on history. -No family present to update regarding post-surgical state. -Appreciate pain management recs -Appreciate medicine recs, currently signed off -Appreciate endocrinology recs INTERVAL HPI: No acute events overnight. Pain controlled MEDICATIONS: Current Facility-Administered Medications Medication Dose Route Frequency - pregabalin 100 mg cap(s) (LYRICA) 100 mg ORAL TID - lisinopril 10 mg tab(s) (ZESTRIL, PRINIVIL) 10 mg ORAL DAILY - pantoprazole DR 40 mg tab(s) (PROTONIX) 40 mg ORAL DAILY - DULoxetine 20 mg cap(s) (CYMBALTA) 20 mg ORAL DAILY - NaCl 0.9% 2-10 mL 2-10 mL INTRAVENOUS q 12 H - acetaminophen 650 mg tab(s) (TYLENOL) 650 mg ORAL q 6 H PRN - dextrose 40 % 15 g 15 g ORAL PRN Or - glucagon 1 mg injection (GLUCAGEN) 1 mg INTRAMUSCULAR PRN Or - dextrose 50 % 12.5 g injection 12.5 g INTRAVENOUS PRN - insulin lispro 8 Units pen (rapid acting) (HumaLOG KWIKPEN) 8 Units SUBCUTANEOUS w MEALS - insulin lispro 0-5 Units pen (rapid acting) (HumaLOG KWIKPEN) 0-5 Units SUBCUTANEOUS w MEALS - insulin NPH human 20 Units injection pen (intermediate acting) (NovoLIN N, HumuLIN N) 20 Units SUBCUTANEOUS BID - ceFAZolin iv piggyback 2 g in D5W (iso-osmotic) 100 mL (ANCEF) 2 g INTRAVENOUS q 8 H - HYDROmorphone HCl 0.5-1 mg injection (DILAUDID) 0.5-1 mg INTRAVENOUS q 3 H PRN - oxyCODONE IR 10 mg tab(s) (ROXICODONE) 10 mg ORAL q 3 H PRN - cyclobenzaprine 5-10 mg tab(s) (FLEXERIL) 5-10 mg ORAL q 8 H PRN - senna-docusate 8.6-50 mg 1 tablet (SENNA-S) 1 tablet ORAL BID PHYSICAL EXAM: BP 141/88 Pulse 99 Temp 36.4 ?C (97.5 ?F) (Temporal) Resp 16 Ht 175.3 cm (5' 9) Wt 70.3 kg (155 lb) SpO2 97% BMI 22.89 kg/m? Body mass index is 22.89 kg/m?. General appearance: NAD, aox3 LLE: dressing c/d/i +kf/ke DATA: CBC: Recent Labs 06/24/19 1621 WBC 7.31 RBC 2.94* HB 8.4* HCT 26.5* PLT 448* MCV 90.1 MCH 28.6 MPV 9.5 RDW 14.1 BMP: Recent Labs 06/25/19 0258 NA 136 K 4.1 CHLOR 100 CO2 32 BUN 8 CREAT 0.55* GLUC 222* IMAGING: no new images SIGNATURE: Alfred Salas MD PAGER: [phone] DATE of SERVICE: 06/25/2019 TIME of SERVICE: 7:26 AM Normal [facility] PROGRESS HNO ID: [id number] Author: Downtime Note Service: ? Author Type: ? Type: Progress Notes Filed: 06/25/2019 2:58 AM Note Text: Epic Scheduled Downtime: 06/25/2019 1:00:00 AM to 06/25/2019 2:39:00 AM [facility] THERAPY NTon 06-25-2019 THERAPY NT HNO ID: [id number] Author: Rebecca AaronOtr/Diana Gentile Service: Occupational Therapy Author Type: Occupational Therapist Type: Therapy (PT/OT/Speech/Resp) Filed: 06/25/2019 9:56 AM Note Text: Occupational Therapy Evaluation SERVICE DATE: 06/25/2019 SERVICE TIME: 909 to 0945 ROOM: [place] [address] Recommended Discharge Disposition: Subacute/SNF Justification For Post Acute Needs: Anticipate that patient will require daily (5x/wk) skilled therapy in a post-acute facility setting at the time of acute hospital discharge;Willing to participate;Motivated OT Recommendations to Nursing: ADL?s in chair;Bedside Commode for Toileting;OOB for meals;Transfer to Chair;With assist of 1 person Equipment: Wheeled Walker;Commode-Bedside OT 6 Clicks Score: 15 Precautions/Activity Restrictions: Weight Bearing Restrictions Precaution/Activity Restriction Comments: NWB Extremity With Weight Bearing Restricted: Left Lower Extremity Left Lower Extremity Weight Bearing Status: NWB ASSESSMENT: Patient presents with deficits in grooming, UE bathing/dressing, LE bathing/dressing, functional transfers, functional mobility, decreased safety awareness, and decreased insight to deficits after admitted for BKA, has the past medical history of deformity of L ankle with external fixator, trimalleolar fx with wound vac placement, cellulitis, DM, HTN impacting current functional level, as well as the social factors complicating the discharge of pt at SNF prior to this admit for therapy. Requires skilled OT to maximize independence with ADLs and functional transfers. Patient Disposition at Start of Session: Supine in Bed;Call Hines in Reach Patient Disposition at End of Session: OOB in Chair;Call Hines in Reach Tolerated Full Session Occupational Therapy Problem List: Safety Deficits;Pain;Education Deficit;Impaired Self Care;Decreased Activity Tolerance;Decreased Strength;Balance Impaired;Functional Mobility Impairment Patient /Caregiver Goals: Go To Rehab Goals for Plan of Care: Grooming with: Set Up Upper Body Dressing with: Set Up Lower Body Dressing with: Contact Guard Assistance Toilet Hygiene with: Contact Guard Assistance Chair Transfer with: Stand By Assistance Toilet Transfer with: Stand By Assistance Tolerate (minutes of functional activity): 15 Functional Activity with: Contact Guard Assistance Additional Goal 1: pt will increase dynamic standing balance to good- to increase safety and participation in standing ADLs Additional Goal 2: pt will demo good safety with wheeled walker 100% of the time Rehab Potential: Good PLAN: Treatment Frequency (times per week): 3(1-3) Current admission Treatment Interventions: Education;Self Care / Home Management;Energy Conservation Training;Strengthening;Fu nctional Mobility Training;Balance Training;Pain Management Plan of Care developed with: Patient TREATMENT INTERVENTIONS: Therapy Diagnosis: Reduced mobility-other;Decreased activities of daily living (ADL);General symptoms and signs-other Interventions Provided: Evaluation;Self Fpc Management (68778) $ Evaluation-Moderate (62284) Billed Units: 1 unit OT Evaluation Moderate Complexity: Occupational Profile - Extended review of patient's medical record completed including patient's physical, cognitive, and psycho-social history (please see current hospital course of evaluation). Occupational Performance - Pt presents with deficits in grooming, UE bathing/dressing, LE bathing/dressing, functional transfers, functional mobility, decreased safety awareness, decreased insight into deficits Complexity in Clinical Decision Making - The extent of clinical reasoning was moderate, several treatment options present for the patient, need for modification during the evaluation was minimal/moderate, comorbidities affecting occupational performance: DM 1, L ankle fx, sepsis, IV drug use, HLD, Hep C, GERd Self Fpc Management (08086) Treatment Minutes: 15 1 unit Skilled Intervention(s): Educated on the role of OT in the acute care setting. Provided instruction, cuing and facilitation for bathing while sitting OOB in the chair, with minimal cues for sequencing throughout, to increase participation in self care tasks. Facilitated static standing balance for 2 minutes while washing eliza area/back/drying body for increased activity tolerance and endurance for self care activities. Provided instruction, cuing and facilitation for upper body dressing (donning gown) while standing for increased activity tolerance and independence during self care tasks. Facilitated lower body dressing (donning socks) in sitting for increased safety and independence during self care activities. Instructed in energy conservation techniques by providing increased time and rest breaks throughout session. Facilitated grooming tasks (hair washing with shampoo cap) in sitting, while instructing patient to use her UB to scrub hair for increased strength and participation during self care tasks. Provided cuing for sequencing during oral hygiene task (brushing teeth) for increased independence during self care activities. Total Timed Code Treatment Minutes: 15 Total Treatment Time (minutes): 35 SUBJECTIVE: Current Hospital Course: Chart reviewed; 44 YO M POD1 s/p L BKA Reason for Occupational Therapy Consult: new functional deficit Relevant Past Medical History: DM 1, L ankle fx, sepsis, IV drug use, HLD, Hep C, GERd Patient Report: Patient supine in bed upon entry of therapy. Patient agreeable to therapy. My pain is off the charts. I need pain medication immediately. Patient medicated 15 minutes prior to therapy. Pain: 10/10 left leg, phantom/aching Home Environment Patient Lives With: Facility Care(SNF) Assistance Available: 24 Hour Equipment Owned: Cane;Wheeled Walker;Rollator([place] boot (doesnt wear)) Prior Functional Level: Required Assistance Assistance Required With: Transfers;Ambulation;Self Care;Transportation Prior Functional Level Comments: working with PT/OT at facility OBJECTIVE: Cognition/Communication Deficits Responsiveness: Alert;Awake Follows Commands: 3-step Commands Attention Deficits: Distractible;Divided Executive Function Deficits: Safety Awareness;Insight to Deficits Insight to Deficits: Minimal impairment Safety Awareness Deficit: Moderate impairment CURRENT FUNCTIONAL STATUS: Current Activities of Daily Living Assist Level Feeding Set Up Grooming Minimal Assistance Bathing Upper Body Minimal Assistance Bathing Lower Body Moderate Assistance Dressing Upper Body Minimal Assistance Dressing Lower Body Moderate Assistance Toileting Moderate Assistance Functional Mobility Assist Level Rolling Supine to Sit Minimal Assistance Sit to Supine Scooting Contact Guard Assistance Sit to Stand Minimal Assistance Stand to Sit Minimal Assistance Bed to Chair Moderate Assistance Wheeled Walker;Gait Belt Toilet/Commode Functional Mobility Minimal Assistance Wheeled Walker Range of Motion: WFL Strength: WFL;Strength Limitation Comments Strength Limitation Comments: could be maximized 4/5 Balance: Dynamic Standing Dynamic Standing Balance: Fair Stand independently unsupported, weight shift, and reach ipsilaterally, LOB when crossing midline Activity Tolerance: Standing Activity Standing Activity: bed to chair transfer, standing at chair for bathing Standing Activity Tolerance (in minutes): 6 Please see discipline specific clinical documentation flowsheet for complete details for this therapy evaluation/treatment. SIGNATURE: ANGELA Ricks/Jens PATIENT NAME: Tori Cantor DATE: June 25, 2019 TIME: 9:53 AM Normal [facility] THERAPY NT HNO ID: [id number] Author: Bryson (Pt) Jessica Service: Physical Therapy Author Type: Physical Therapist Type: Therapy (PT/OT/Speech/Resp) Filed: 06/25/2019 9:39 AM Note Text: Physical Therapy Evaluation SERVICE DATE: 06/25/2019 SERVICE TIME: 899 to 922 ROOM: [place] [address] Recommended Discharge Disposition: Subacute/SNF Recommended Discharge Disposition Comments: Pt with significant limitations in functional mobility requiring physical assist or he is unsafe to perform. Pt will need SNF at d/c to continue working on limitations for goal of eventual return home. Justification For Post Acute Needs: Anticipate that patient will require daily (5x/wk) skilled therapy in a post-acute facility setting at the time of acute hospital discharge PT Recommendations to Nursing: Transfer to/from chair;OOB for Meals;With assist of 1 person Device: Wheeled Walker PT 6 Clicks Score: 17 Precautions/Activity Restrictions: Weight Bearing Restrictions Precaution/Activity Restriction Comments: NWB Extremity With Weight Bearing Restricted: Left Lower Extremity Left Lower Extremity Weight Bearing Status: NWB ASSESSMENT : This patient was admitted for BKA, has the past medical history of deformity of L ankle with external fixator, trimalleolar fx with wound vac placement, cellulitis, DM, HTN impacting current functional level, as well as the social factors complicating the discharge of pt at [facility] prior to this admit for therapy. This patient is below his baseline functioning and will benefit from continued skilled therapy in the hospital for treatment of the following body systems/impairments: musculoskeletal (strength, ROM, gait, transfers, assistive device training) Integumentary Patient Disposition at Start of Session: Supine in Bed;Call Hines in Reach Patient Disposition at End of Session: OOB in Chair;Call Hines in Reach Tolerated Full Session Physical Therapy Problem List: Education Deficit;Pain;Safety Deficits;Impaired Self Care;Decreased Range Of Motion;Decreased Strength;Functional Mobility Impairment Patient /Caregiver Goals: Walk;Go To Rehab Goals for Plan of Care: Able to perform HEP with: Verbal Cues Only Transfer sit to/from stand with: Contact Guard Assistance Ambulate with: Contact Guard Assistance Distance: 40 Device: Wheeled Walker Goal: pt voices need to avoid knee flexion resting position on L knee Rehab Potential: Good PLAN: Treatment Frequency (times per week): 7(4-7) Current admission Treatment Interventions: Education;Joint Mobility;Strengthening;Fu nctional Mobility Training Plan of Care developed with: Patient TREATMENT INTERVENTIONS: Therapy Diagnosis: Reduced mobility-other;Abnormalit ies of gait and mobility-other;General symptoms and signs-other Interventions Provided: Evaluation;Therapeutic Activity (59984);Gait Training (90417) $ Evaluation-Moderate (12216) Billed Units: 1 unit History and examination of body systems see assessment section above. This patient?s clinical presentation is evolving. The patient required a moderate complexity evaluation. Therapeutic Activity (88142) Treatment Minutes: 6 1 unit Skilled Intervention(s): Instructed patient in sit to supine using safe, effective technique Instruction in sit to and from stand technique with proper hand placement and body positioning at edge of bed/chair Education with BKA precautions and need to avoid resting knee in a flexed position. Gait Training (83714) Treatment Minutes: 2 0 units Skilled Intervention(s): Instruction in sit to stand technique with proper hand placement and body positioning at edge of bed/chair, Instruction in stand to sit technique with LE's touching chair/bed and reaching back for surface, Facilitation of maintaining close proximity to walker, Instruction in WB precautions and Instruction in use of equipment, cues for sequence and pattern Total Timed Code Treatment Minutes: 8 Total Treatment Time (minutes): 23 SUBJECTIVE: Current Hospital Course: Chart reviewed; 44 YO M POD1 s/p L BKA Non-weight bearing left lower extremity with physical and occupational therapy 44 year old male presented to [facility] ED with complaints of deformity of his left ankle s/p external fixation with irrigation and debridement with wound vac placement on 06/10/2019 for a left trimalleolar fracture with cellulitis and a repeat irrigation and debridement with wound vac placement on 06/16/2019. Patient was discharged on 06/20/2019 from [facility] to a nursing facility. Patient was have his wound vac changed by his nurse today when she noticed that there was increased displacement of his tibia through his distal wound. The nurse had the patient transferred to [facility] for evaluation of the new deformity. Patient states that he has been intermittently weight bearing on his LLE because of his his weak RLE and his poor sensation on his LLE. Relevant Past Medical History: DM 1, L ankle fx, sepsis, IV drug use, HLD, Hep C, GERd Patient Report: Pt feeling phantom pain. Pt willing to participate. Home Environment Patient Lives With: Facility Care(SNF) Assistance Available: 24 Hour Equipment Owned: Cane;Wheeled Walker;Rollator([place] boot (doesnt wear)) Prior Functional Level: Required Assistance Assistance Required With: Transfers;Ambulation;Self Care;Transportation Prior Functional Level Comments: working with PT/OT at facility OBJECTIVE: Range of Motion: ROM Limitation Comments ROM Limitation Comments: R foot charcot and limited DF. L LE BKA, slight flexed knee (unable to fully extend) Strength: Strength Limitation Comments Strength Limitation Comments: able to SLR L and extend knee CURRENT FUNCTIONAL STATUS: Current Functional Mobility Assist Level Additional Information Rolling Minimal Assistance Supine to Sit Minimal Assistance Sit to Supine Scooting Contact Guard Assistance Sit to Stand Minimal Assistance Stand to Sit Minimal Assistance Bed to Chair Minimal Assistance Bed To Chair Transfer Type: Stand Pivot Bed To Chair Transfer Equipment: Wheeled Walker Toilet/Commode Gait Minimal Assistance Gait Device: Wheeled Walker Gait Distance (feet): 2 Stairs Curb Step Car Transfer General Gait Deviations: (hop step, unsteady) JH-HLM: 4: Move to chair / commode Please see discipline specific clinical documentation flowsheet for complete details for this therapy evaluation/treatment. SIGNATURE: Bryson Lopez PT PATIENT NAME: Tori Cantor DATE: June 25, 2019 TIME: 9:34 AM [facility] ANES Le 06-24-2019 ANES POST HNO ID: [id number] Author: Carlos Sahni Service: Anesthesiology Author Type: Physician Type: Anesthesia PostOp Filed: 06/24/2019 1:16 PM Note Text: POST ANESTHESIA EVALUATION NOTE SERVICE DATE: 06/24/2019 SERVICE TIME: 1:16 PM : 1975 Vitals: 06/24/19 0329 06/24/19 0750 06/24/19 1040 06/24/19 1254 Temp: 36.7 ?C (98.1 ?F) 37.4 ?C (99.3 ?F) 37.1 ?C (98.8 ?F) 36.8 ?C (98.2 ?F) 06/24/19 1145 06/24/19 1200 06/24/19 1245 06/24/19 1254 BP: 143/82 157/94 143/84 143/84 06/24/19 1200 06/24/19 1215 06/24/19 1245 06/24/19 1254 Pulse: 95 92 93 92 06/24/19 1200 06/24/19 1215 06/24/19 1245 06/24/19 1254 Resp: 13 19 13 16 06/24/19 1200 06/24/19 1215 06/24/19 1245 06/24/19 1254 SpO2: 99% 100% 98% 98% Validated Vital Signs: Yes POST ANES STATUS: No apparent anesthetic complications. The patient is appropriately hydrated with stable respiratory and cardiovascular status. Patient has safe and adequate airway control. The patient has appropriate pain relief and no significant post operative nausea or vomiting. The patient has achieved baseline mental status. Intra-Operative Events: No Significant Anesthesia Events Further assessment by Anesthesia Service: None Other Remarks: SIGNATURE: Carlos Sahni DO PATIENT NAME: Tori Cantor DATE: June 24, 2019 TIME: 1:16 PM PAGER/CONTACT #: [phone] [facility] ANES PREOPon 06-24-2019 ANES PREOP HNO ID: [id number] Author: Carlos Sahni Service: Anesthesiology Author Type: Physician Type: Anesthesia PreOp Filed: 06/24/2019 8:29 AM Note Text: ANESTHESIOLOGY DAY OF SURGERY NOTE SERVICE DATE: 06/24/2019 SERVICE TIME: 8:27 AM : 1975 Procedure(s) (LRB): AMPUTATION BELOW KNEE EXTREMITY LOWER (Left) REMOVAL EXTERNAL FIXATOR EXTREMITY LOWER (Left) APPLICATION WOUND VAC EXTREMITY LOWER TOTAL WOUND SURFACE GREATER THAN 50 SQ CENTIMETERS (Left) Surgeon(s): Jayy Vogel Estimated body mass index is 22.89 kg/m? as calculated from the following: Height as of this encounter: 175.3 cm (5' 9). Weight as of this encounter: 70.3 kg (155 lb). Most recent hematocrit and potassium results: Hematocrit 27.4 06/24/2019 Potassium 4.2 06/24/2019 ANES DOS/PREOP NOTE: Vitals: 06/23/19 1556 06/23/19 2045 06/24/19 0329 06/24/19 0750 BP: 137/83 129/84 130/85 128/83 Pulse: 85 84 85 87 Resp: 16 16 16 14 Temp: 37 ?C (98.6 ?F) 36.4 ?C (97.5 ?F) 36.7 ?C (98.1 ?F) 37.4 ?C (99.3 ?F) TempSrc: Temporal Oral Oral SpO2: 94% 97% 98% 96% Weight: Height: Active Problem List: Not available in [facility]; refer to paper chart Past Medical/Surgical History: Not availble in [facility]; refer to paper chart Family History: Not availble in [facility]; refer to paper chart Social History: Not availble in [facility]; refer to paper chart H AND P/Review of Systems: Not available in [facility]; refer to paper chart No current facility-administered medications on file prior to encounter. Current Outpatient Medications on File Prior to Encounter Medication Sig - acetaminophen (TYLENOL) 325 mg tablet Take 650 mg by mouth every 6 hours as needed (mild pain). - acetaminophen (TYLENOL) 325 mg tablet Take 650 mg by mouth every 6 hours as needed for Fever. - acetaminophen (TYLENOL) 325 mg tablet Take 650 mg by mouth every 6 hours as needed (mild pain). - bisacodyl (DULCOLAX) 10 mg supp 10 mg by RECTAL route once daily as needed for Constipation. - bisacodyl EC (DULCOLAX, BISACODYL,) 5 mg EC tablet Take 5 mg by mouth once daily as needed for Constipation. - cyclobenzaprine (FLEXERIL) 5 mg tablet Take 5 mg by mouth every 8 hours as needed for Muscle Spasm. - levoFLOXacin (LEVAQUIN) 750 mg tablet Take 750 mg by mouth once daily. For 14 days. Course of therapy initiated on 06/09/2019. Scheduled to end on 06/23/2019. - lisinopril (ZESTRIL, PRINIVIL) 10 mg tablet Take 10 mg by mouth once daily. - pregabalin (LYRICA) 100 mg capsule Take 100 mg by mouth three times daily. - magnesium hydroxide (MOM) 400 mg/5 mL suspension Take 30 mL by mouth once daily as needed for Constipation. - naloxone 4 mg/actuation nasal spray (NARCAN) Use 1 spray alternating nostrils every 2 minutes as needed for anxiety. - ondansetron (ZOFRAN) 4 mg tablet Take 4 mg by mouth every 6 hours as needed (nausea). - oxyCODONE IR (ROXICODONE) 5 mg immediate release tablet Take 5 mg by mouth every 4 hours as needed for Pain. For 5 days. Course initiated on 06/21/2019. Scheduled to end on 06/26/2019. - oxyCODONE IR (ROXICODONE) 5 mg immediate release tablet Take 5 mg by mouth every 6 hours as needed (severe pain). For 5 days. Course initiated on 06/21/2019. Scheduled to end on 06/26/2019. - oxyCODONE-acetaminophen (PERCOCET) 5-325 mg tablet Take 1 tablet by mouth every 6 hours as needed for Pain. - senna (SENNA) 8.6 mg tab Take 17.2 mg by mouth twice daily. - DULoxetine (CYMBALTA) 30 mg capsule Take 30 mg by mouth once daily. For depression. - doxycycline monohydrate 100 mg tablet Take 100 mg by mouth twice daily. For 14 days. Course of therapy initiated on 06/09/2019. Scheduled to end on 06/23/2019. - DULoxetine (CYMBALTA) 20 mg capsule Take 20 mg by mouth once daily. For anxiety. - insulin lispro (HUMALOG KWIKPEN INSULIN) 100 unit/mL inpn Inject as per sliding scale subcutaneously before meals. If blood sugars are: 100-150 inject 2 unit(s). 151-200 inject 4 unit(s). 201-250 inject 6 unit(s). 251-300 inject 8 unit(s). 301-350 inject 10 unit(s). 351-400 inject 12 unit(s). 401-450 inject 14 unit(s). For blood glucose <70 or >500 call MD. - insulin lispro (HUMALOG KWIKPEN INSULIN) 100 unit/mL inpn Inject as per sliding scale subcutaneously before meals. If blood sugars are: 201-225 inject 4 unit(s). 226-250 inject 5 unit(s). 251-275 inject 6 unit(s). 276-300 inject 7 unit(s). 301-325 inject 8 unit(s). 326-350 inject 9 unit(s). 351-999 inject 10 unit(s) and notify provider. - ibuprofen (MOTRIN) 400 mg tablet Take 400 mg by mouth every 6 hours as needed. - insulin NPH (HumuLIN N,NovoLIN N) pen Inject 20 Units subcutaneously twice daily. - insulin glargine (LANTUS SOLOSTAR U-100 INSULIN) 100 unit/mL (3 mL) inpn Inject 24 Units subcutaneously twice daily. - polyethylene glycol 3350 (MIRALAX) 17 gram/dose powder Take 17 g by mouth twice daily. - enoxaparin (LOVENOX) 40 mg/0.4 mL syrg Inject 40 mg subcutaneously every 24 hours. - pantoprazole DR (PROTONIX) 40 mg tablet Take 40 mg by mouth once daily. - ceFAZolin (ANCEF) 2 gram/100 mL in dextrose (iso-osmotic) Inject 100 mL intravenously every 8 hours. Current Facility-Administered Medications Medication Dose Route Frequency Provider Last Rate Last Dose - [MAR Hold due to Transfer] insulin lispro 8 Units pen (rapid acting) (HumaLOG KWIKPEN) 8 Units SUBCUTANEOUS w MEALS Lucita Ciltea 8 Units at 06/23/19 1406 - [MAR Hold due to Transfer] insulin lispro 0-5 Units pen (rapid acting) (HumaLOG KWIKPEN) 0-5 Units SUBCUTANEOUS w MEALS Lucita Ciltea 2 Units at 06/24/19 0616 - [MAR Hold due to Transfer] insulin NPH human 20 Units injection pen (intermediate acting) (NovoLIN N, HumuLIN N) 20 Units SUBCUTANEOUS BID Lucita Ciltea 20 Units at 06/23/192150 - [MAR Hold due to Transfer] dextrose 5% in NaCl 0.45% iv infusion 50 mL/hr INTRAVENOUS CONTINUOUS Lucita Ciltea 50 mL/hr at 06/23/192048 50 mL/hr at 06/23/192048 - [MAR Hold due to Transfer] pregabalin 100 mg cap(s) (LYRICA) 100 mg ORAL TID Bryson (Rocky) Pinkowski 100 mg at 06/23/192047 - [MAR Hold due to Transfer] lisinopril 10 mg tab(s) (ZESTRIL, PRINIVIL) 10 mg ORAL DAILY Bryson (Rocky) Gennyowski 10 mg at 06/23/19817 - [MAR Hold due to Transfer] ceFAZolin iv piggyback 2 g in D5W (iso-osmotic) 100 mL (ANCEF) 2 g INTRAVENOUS q 8 H Bryson (Rocky) Gennyowski 200 mL/hr at 06/24/19512 2 g at 06/24/19512 - [MAR Hold due to Transfer] pantoprazole DR 40 mg tab(s) (PROTONIX) 40 mg ORAL DAILY Bryson (Rocky) Pinkowski 40 mg at 06/23/19817 - [MAR Hold due to Transfer] DULoxetine 20 mg cap(s) (CYMBALTA) 20 mg ORAL DAILY Bryson (Rocky) Pinkowski 20 mg at 06/23/19817 - [MAR Hold due to Transfer] cyclobenzaprine 5 mg tab(s) (FLEXERIL) 5 mg ORAL q 8 H PRN Bryson (Rocky) Gennyowski 5 mg at 06/23/192047 - [MAR Hold due to Transfer] NaCl 0.9% 2-10 mL 2-10 mL INTRAVENOUS q 12 H Bryson (Rocky) Pinkowski 10 mL at 06/23/19 0900 - [MAR Hold due to Transfer] docusate sodium 100 mg cap(s) (COLACE) 100 mg ORAL BID Bryson (Rocky) Pinkowski 100 mg at 06/23/192046 - [MAR Hold due to Transfer] morphine 2 mg injection 2 mg INTRAVENOUS q 2 H PRN Byrson (Rocky) Gennyowski 2 mg at 06/24/19335 - [MAR Hold due to Transfer] oxyCODONE IR 5-10 mg tab(s) (ROXICODONE) 5-10 mg ORAL q 4 H PRN Christopher (Res) Pinkowski 10 mg at 06/24/19 0011 - [MAR Hold due to Transfer] acetaminophen 650 mg tab(s) (TYLENOL) 650 mg ORAL q 6 H PRN Christopher (Res) Pinkowski 650 mg at 06/23/19 0216 - [MAR Hold due to Transfer] dextrose 40 % 15 g 15 g ORAL PRN Christopher (Res) Pinkowski Or - [MAR Hold due to Transfer] glucagon 1 mg injection (GLUCAGEN) 1 mg INTRAMUSCULAR PRN Christopher (Res) Pinkowski Or - [MAR Hold due to Transfer] dextrose 50 % 12.5 g injection 12.5 g INTRAVENOUS PRN Christopher (Res) Pinkowski ALLERGIES No Known Allergies DOS EXAM: Adequate NPO status: Yes Anesthetic risks, benefits, alternatives, personnel and consent discussed: Yes Patient agrees to proceed: Yes Previous Anesthesia: No history of adverse event. Airway Assessment: MP 2; Neck ROM: Limited Extension; Airway Evaluation: No significant abnormalities Symptoms of Sleep Apnea: Hypertension, Age over 50 (44 year old) and Male gender Dentition: Edentulous Additional Physical Exam: Lungs: Patient health status unchanged since recent history and physical. See history and physical for exam findings. Cardiac: Patient health status unchanged since recent history and physical. See history and physical for exam findings. Additional Pertinent Findings: N/A Blood Products: Not anticipated for this procedure. Anesthetic Plan: General, Standard ASA Monitors Pain Management Plan: Parenteral or Oral ASA Class: 3 Other Medical Problems: poorly controlled DM with gastroparesis and severe neuropathy. Chronic pain on opioids, will need pain management afterward. Plan for RSI. Chronic Beta Andrews medication administered within 24 hours: N/A I have interviewed and examined the patient. I have reviewed the medical record and/or the pre-anesthesia evaluation, pertinent labs, and test results. Significant changes in the patient's condition since the History and Physical, not otherwise documented in primary service progress notes: No This contains updated information obtained within 48 hours of Surgery/Procedure. SIGNATURE: Carlos Sahni DO PATIENT NAME: Tori Cantor DATE: June 24, 2019 TIME: 8:27 AM CSN: [id number] Normal [facility] Basic Panelon 06-24-2019 Creatinine [Mass/Vol] 0.55 mg/dL Low 0.67-1.17 [facility] Comment on above: Performed By: #### C BC1 #### [facility] [address] [place], [place] [address] Urea nitrogen [Mass/Vol] 11 mg/dL Normal 7-18 [facility] Comment on above: Performed By: #### C BC1 #### [facility] [address] [place], [place] [address] Anion gap [Moles/Vol] 7 mmol/L Low 8-16 [facility] Comment on above: Performed By: #### C BC1 #### [facility] [address] [place], [place] [address] Calcium [Mass/Vol] 8.9 mg/dL Normal 8.5-10.1 [facility] Comment on above: Performed By: #### C BC1 #### [facility] [address] [place], [place] [address] Chloride [Moles/Vol] 101 mmol/L Normal 98-107 [facility] Comment on above: Performed By: #### C BC1 #### [address] [address] CO2 [Moles/Vol] 32 mmol/L Normal 21-32 [facility] Comment on above: Performed By: #### C BC1 #### [address] [address] Glucose [Mass/Vol] 160 mg/dL High 70-99 [facility] Comment on above: Performed By: #### C BC1 #### [facility] [address] [place], [place] [address] Potassium [Moles/Vol] 4.2 mmol/L Normal 3.5-5.1 [facility] Comment on above: Performed By: #### C BC1 #### [address] [address] Sodium [Moles/Vol] 136 mmol/L Normal 136-145 [facility] Comment on above: Performed By: #### C BC1 #### [facility] [address] [place] [id number] CASE MANAGEMon 06-24-2019 CASE MANAGEM HNO ID: [id number] Author: Charlee AaronRn) MATT Lee Service: Care Management Author Type: Registered Nurse Type: Care Mgt Progress Note Filed: 06/24/2019 2:28 PM Note Text: CARE MANAGEMENT PROGRESS NOTE SERVICE DATE: 06/24/2019 SERVICE TIME: 2:27 PM LOS: 3 days IM letter given to patient on 06/24/2019. 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, hx left trimalleolar ankle francture; MSSA bacteremia with tibia/fibular osteomyelitis; IVDA Pain Description: Patient seen in PACU, complains of bad squeezing pain at BKA stump site; phantom pain as well 24H Pain Regimen: PACU Dilaudid 0.5 mg ?2, fentanyl 25 ?g ?4 Tylenol 650 mg every 6 hours when necessary Flexeril 5 mg every 8 hours when necessary ?1 Cymbalta 20 mg daily Morphine 2 mg IV every 2 hours when necessary ?3 Oxycodone 5?10 milligram every 4 hours when necessary 10 mg ?3 Lyrica 100 mg 3 times a day ?2 Interval HPI: Subjective HPI: 44yo male with history of IV drug abuse, 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 Patient was readmitted to orthopedic service with redislocation of the tibiotalar joint, exposed necrotic tibia and worsening fracture displacement. He underwent left BKA with removal of external fixator 06/24. Patient is known to our team from his recent admission 06/09?06/20 for MSSA bacteremia and osteomyelitis. He was discharged to SNF on oxycodone 5 mg #30 ? Prior to admission patient was taking Lyrica 100 mg by mouth 3 times a day. He smokes 1 pack per day. He denies alcohol. He does use marijuana infrequently. He states he had done street drugs for 30 years and then he last used a while ago. He has a history of IV cocaine and methamphetamine. He also admits to history of frequent IV fentanyl use. OARRS Review: Summary Total Prescriptions: 13 Total Prescribers: 5 Total Pharmacies: 2 Narcotics* ?(excluding buprenorphine) Current Qty: 6 Current MME/day: 45.00 30 Day Avg MME/day: 13.50 Sedatives* Current Qty: 18 Current LME/day: 2.01 30 Day Avg LME/day: 1.88 Buprenorphine* Current Qty: 0 Current mg/day: 0.00 30 Day Avg mg/day: 0.00 Rx Data Total Prescriptions: 13 ?? 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 06/21/2019 2 06/15/2019 Oxycodone Hcl 5 MG Tablet 30.00 5 [facility] [id number] Pha ([id number]) 0 45.00 MME Private Pay [place] 06/21/2019 2 06/21/2019 Pregabalin 100 MG Capsule 30.00 10 [facility] [phone] Pha ([id number]) 4 2.01 LME Private [place] 06/06/2019 2 06/06/2019 Oxycodone-Acetaminophen 5-325 30.00 7 [facility] [id number] Pha ([id number]) 0 32.14 MME Private [place] 06/06/2019 2 06/06/2019 Pregabalin 100 MG Capsule 30.00 10 [facility] [phone] Pha ([id number]) 4 2.01 LME [place] 06/01/2019 2 06/01/2019 Pregabalin 150 MG Capsule 30.00 15 [facility] [id number] Pha ([id number]) 4 2.01 LME [place] 05/31/2019 2 05/31/2019 Oxycodone-Acetaminophen 5-325 6.00 1 [facility] [id number] Pha ([phone]) 0 45.00 MME Private Pay [place] Current Facility-Administered Medications Medication Dose Route Frequency Provider Last Rate Last Dose - lactated ringers infusion 125 mL/hr INTRAVENOUS CONTINUOUS Carlos Sahni - HYDROmorphone HCl 0.5 mg injection (DILAUDID) 0.5 mg INTRAVENOUS q 10 MIN PRN Carlos Sahni 0.5 mg at 06/24/19 1200 - oxyCODONE IR 5 mg tab(s) (ROXICODONE) 5 mg ORAL PRN Carlos Sahni - ondansetron (PF) 4 mg injection (ZOFRAN) 4 mg INTRAVENOUS PRN Carlos Sahni - prochlorperazine 5 mg injection (COMPAZINE) 5 mg INTRAVENOUS q 30 MIN PRN Carlos Sahni - [MAR Hold due to Transfer] insulin lispro 8 Units pen (rapid acting) (HumaLOG KWIKPEN) 8 Units SUBCUTANEOUS w MEALS Lucita Ciltea 8 Units at 06/23/19 1406 - [MAR Hold due to Transfer] insulin lispro 0-5 Units pen (rapid acting) (HumaLOG KWIKPEN) 0-5 Units SUBCUTANEOUS w MEALS Lucita Ciltea 2 Units at 06/24/19 0616 - [MAR Hold due to Transfer] insulin NPH human 20 Units injection pen (intermediate acting) (NovoLIN N, HumuLIN N) 20 Units SUBCUTANEOUS BID Lucita Ciltea 20 Units at 06/23/19 2151 - [MAR Hold due to Transfer] dextrose 5% in NaCl 0.45% iv infusion 50 mL/hr INTRAVENOUS CONTINUOUS Lucita Ciltea 50 mL/hr at 06/23/192048 50 mL/hr at 06/23/192048 - [MAR Hold due to Transfer] pregabalin 100 mg cap(s) (LYRICA) 100 mg ORAL TID Bryson (Rocky) Gennyowski 100 mg at 06/23/192047 - [MAR Hold due to Transfer] lisinopril 10 mg tab(s) (ZESTRIL, PRINIVIL) 10 mg ORAL DAILY Bryson (Res) Gennyowski 10 mg at 06/23/19 0818 - [MAR Hold due to Transfer] ceFAZolin iv piggyback 2 g in D5W (iso-osmotic) 100 mL (ANCEF) 2 g INTRAVENOUS q 8 H Bryson (Res) Pinkowski 200 mL/hr at 06/24/19512 2 g at 06/24/19512 - [MAR Hold due to Transfer] pantoprazole DR 40 mg tab(s) (PROTONIX) 40 mg ORAL DAILY Arturoopher (Res) Pinkowski 40 mg at 06/23/19817 - [MAR Hold due to Transfer] DULoxetine 20 mg cap(s) (CYMBALTA) 20 mg ORAL DAILY Evangelister (Res) Pinkowski 20 mg at 06/23/19817 - [MAR Hold due to Transfer] cyclobenzaprine 5 mg tab(s) (FLEXERIL) 5 mg ORAL q 8 H PRN Bryson (Res) Pinkowski 5 mg at 06/23/192047 - [MAR Hold due to Transfer] NaCl 0.9% 2-10 mL 2-10 mL INTRAVENOUS q 12 H Bryson (Res) Pinkowski 10 mL at 06/23/19 09 - [MAR Hold due to Transfer] docusate sodium 100 mg cap(s) (COLACE) 100 mg ORAL BID Bryson (Res) Pinkowski 100 mg at 06/23/192046 - [MAR Hold due to Transfer] morphine 2 mg injection 2 mg INTRAVENOUS q 2 H PRN Bryson (Res) Pinkowski 2 mg at 06/24/19 0336 - [MAR Hold due to Transfer] oxyCODONE IR 5-10 mg tab(s) (ROXICODONE) 5-10 mg ORAL q 4 H PRN Bryson (Res) Pinkowski 10 mg at 06/24/19 0011 - [MAR Hold due to Transfer] acetaminophen 650 mg tab(s) (TYLENOL) 650 mg ORAL q 6 H PRN Bryson (Res) Pinkowski 650 mg at 06/23/19 0216 - [MAR Hold due to Transfer] dextrose 40 % 15 g 15 g ORAL PRN Evangelister (Res) Pinkowski Or - [MAR Hold due to Transfer] glucagon 1 mg injection (GLUCAGEN) 1 mg INTRAMUSCULAR PRN Evangelister (Res) Gennyowski Or - [MAR Hold due to Transfer] dextrose 50 % 12.5 g injection 12.5 g INTRAVENOUS PRN Bryson (Res) Gennyowski acetaminophen (TYLENOL) 325 mg tablet, Take 650 mg by mouth every 6 hours as needed (mild pain)., Disp: , Rfl: acetaminophen (TYLENOL) 325 mg tablet, Take 650 mg by mouth every 6 hours as needed for Fever., Disp: , Rfl: acetaminophen (TYLENOL) 325 mg tablet, Take 650 mg by mouth every 6 hours as needed (mild pain)., Disp: , Rfl: bisacodyl (DULCOLAX) 10 mg supp, 10 mg by RECTAL route once daily as needed for Constipation., Disp: , Rfl: bisacodyl EC (DULCOLAX, BISACODYL,) 5 mg EC tablet, Take 5 mg by mouth once daily as needed for Constipation., Disp: , Rfl: cyclobenzaprine (FLEXERIL) 5 mg tablet, Take 5 mg by mouth every 8 hours as needed for Muscle Spasm., Disp: , Rfl: levoFLOXacin (LEVAQUIN) 750 mg tablet, Take 750 mg by mouth once daily. For 14 days. Course of therapy initiated on 06/09/2019. Scheduled to end on 06/23/2019., Disp: , Rfl: lisinopril (ZESTRIL, PRINIVIL) 10 mg tablet, Take 10 mg by mouth once daily., Disp: , Rfl: pregabalin (LYRICA) 100 mg capsule, Take 100 mg by mouth three times daily., Disp: , Rfl: magnesium hydroxide (MOM) 400 mg/5 mL suspension, Take 30 mL by mouth once daily as needed for Constipation., Disp: , Rfl: naloxone 4 mg/actuation nasal spray (NARCAN), Use 1 spray alternating nostrils every 2 minutes as needed for anxiety., Disp: , Rfl: ondansetron (ZOFRAN) 4 mg tablet, Take 4 mg by mouth every 6 hours as needed (nausea)., Disp: , Rfl: oxyCODONE IR (ROXICODONE) 5 mg immediate release tablet, Take 5 mg by mouth every 4 hours as needed for Pain. For 5 days. Course initiated on 06/21/2019. Scheduled to end on 06/26/2019., Disp: , Rfl: oxyCODONE IR (ROXICODONE) 5 mg immediate release tablet, Take 5 mg by mouth every 6 hours as needed (severe pain). For 5 days. Course initiated on 06/21/2019. Scheduled to end on 06/26/2019., Disp: , Rfl: oxyCODONE-acetaminophen (PERCOCET) 5-325 mg tablet, Take 1 tablet by mouth every 6 hours as needed for Pain., Disp: , Rfl: senna (SENNA) 8.6 mg tab, Take 17.2 mg by mouth twice daily., Disp: , Rfl: DULoxetine (CYMBALTA) 30 mg capsule, Take 30 mg by mouth once daily. For depression., Disp: , Rfl: doxycycline monohydrate 100 mg tablet, Take 100 mg by mouth twice daily. For 14 days. Course of therapy initiated on 06/09/2019. Scheduled to end on 06/23/2019., Disp: , Rfl: DULoxetine (CYMBALTA) 20 mg capsule, Take 20 mg by mouth once daily. For anxiety., Disp: , Rfl: insulin lispro (HUMALOG KWIKPEN INSULIN) 100 unit/mL inpn, Inject as per sliding scale subcutaneously before meals. If blood sugars are: 100-150 inject 2 unit(s). 151-200 inject 4 unit(s). 201-250 inject 6 unit(s). 251-300 inject 8 unit(s). 301-350 inject 10 unit(s). 351-400 inject 12 unit(s). 401-450 inject 14 unit(s). For blood glucose <70 or >500 call MD., Disp: , Rfl: insulin lispro (HUMALOG KWIKPEN INSULIN) 100 unit/mL inpn, Inject as per sliding scale subcutaneously before meals. If blood sugars are: 201-225 inject 4 unit(s). 226-250 inject 5 unit(s). 251-275 inject 6 unit(s). 276-300 inject 7 unit(s). 301-325 inject 8 unit(s). 326-350 inject 9 unit(s). 351-999 inject 10 unit(s) and notify provider., Disp: , Rfl: ibuprofen (MOTRIN) 400 mg tablet, Take 400 mg by mouth every 6 hours as needed., Disp: , Rfl: insulin NPH (HumuLIN N,NovoLIN N) pen, Inject 20 Units subcutaneously twice daily., Disp: , Rfl: insulin glargine (LANTUS SOLOSTAR U-100 INSULIN) 100 unit/mL (3 mL) inpn, Inject 24 Units subcutaneously twice daily., Disp: , Rfl: polyethylene glycol 3350 (MIRALAX) 17 gram/dose powder, Take 17 g by mouth twice daily., Disp: , Rfl: enoxaparin (LOVENOX) 40 mg/0.4 mL syrg, Inject 40 mg subcutaneously every 24 hours., Disp: , Rfl: pantoprazole DR (PROTONIX) 40 mg tablet, Take 40 mg by mouth once daily. , Disp: , Rfl: , 05/26/2019 ceFAZolin (ANCEF) 2 gram/100 mL in dextrose (iso-osmotic), Inject 100 mL intravenously every 8 hours., Disp: 9000 mL, Rfl: 1, Unknown at Unknown time Social History Tobacco Use - Smoking status: Current Every Day Smoker Packs/day: 1.00 Types: Cigarettes - Smokeless tobacco: Never Used Substance Use Topics - Alcohol use: Yes Comment: socially - Drug use: Yes Types: Cocaine, Amphetamines Comment: hist of cocaine and marajuana use, fentanyl FAMILY HISTORY Problem Relation Age of Onset - Hypertension Mother - Diabetes Mother - Stroke Mother - Heart Mother CHF - Cataract Mother - Hypertension Father - COPD Father - Emphysema Father PAST SURGICAL HISTORY Procedure Laterality Date - IR VASCULAR ACCESS TEAM PICC INSERTION RADIO 06/17/2019 - NONE ROS: All of the following reviewed and negative except as noted below: GENERAL: no fever, chills, sweats, weight loss, fatigue, generalized weakness HEENT: no headache, vision changes, eye discomfort, hearing change, ear discomfort, sinus pain, nasal discharge or congestion, oral lesions, soreness, dental problem NECK: no adenopathy, discomfort, change in ROM CHEST: no shortness of breath, dyspnea on exertion, wheezing, cough, sputum production or chest pain HEART: no chest pain, palpitations, syncope ABDOMEN: no nausea, vomiting, constipation, diarrhea, abdominal pain : no dysuria, urgency, frequency, history of stones, incontinence NEURO: no confusion or alteration in consciousness, slurred speech, seizure, focal weakness EXTREMITIES: See HPI HEME: no new adenopathy, bruises, petechiae PSYCH: no depression, anxiety, agitation PAIN PSYCHIATRIC EXAM: GENERAL: alert, oriented to person, place, time JUDGMENT AND INSIGHT: intact APPEARANCE: neatly groomed DEMEANOR: coooperative, not hostile, mistrustful, preoccupied, or demanding ACTIVITY: normal, not hyperactive or hypoactive, no tremors, tics EYE CONTACT: normal SPEECH: normal, rate, volume, articulation, coherence, spontaneity MOOD: normal, without overt sadness, grief, anxiety, appropriate to situation IDEATION: normal and without suicidal or homicidal ideation MEMORY: intact PHYSICAL EXAMINATION: GENERAL: well nourished and developed; no acute distress; alert and oriented x 3; intact judgement and insight HEENT: no evidence of trauma; cranial nerves intact; eyes clear EOMI; no hearing deficits apparent; nasal passages unremarkable; throat and mucous membranes clear NECK: supple without lymphadenopathy; no JVD; no thyromegaly CHEST: clear bilaterally to auscultation; normal chest movement; no rales or rhonchi HEART: regular rate and rhythm, normal S1 and S2, no murmurs, clicks, rubs, or gallops ABDOMEN: soft; nondistended; bowel sounds present; no hepatomegaly; no splenomegaly; no tenderness EXTREMITIES: no evidence of clubbing; no cyanosis; no edema; left BKA NEURO: cranial nerves intact; no focal deficits; no confusion; no tremor; sensorium normal SKIN: no rash; no skin breakdown; no decubitus lesions HEME: no bruising; no adenopathy PSYCH: no evidence of depression; no anxiety; no agitation; no apparent hallucinations BP 143/82 Pulse 92 Temp 37.1 ?C (98.8 ?F) (Tympanic) Resp 7 Ht 175.3 cm (5' 9) Wt 70.3 kg (155 lb) SpO2 (!) 81% BMI 22.89 kg/m? BMI 22.89 kg/(m2) Date 06/24/19699 - 06/25/19658 Shift 6835-1127 5786-0617 5843-0576 24 Hour Total INTAKE IV 1000 1000 Shift Total 1000 1000 OUTPUT Shift Total Weight (kg) 70.3 70.3 70.3 70.3 Date 06/23/19699 - 06/24/1965806/24/19699 - 06/25/19658 Shift 8973-2895 3304-8249 0856-7684 24 Hour Total 0563-1575 8634-7233 8068-2380 24 Hour Total INTAKE PO 480 480 PO 480 480 IV 1000 1000 OR Crystalloid intake (mL) 1000 1000 Shift Total 759 847 3312 1000 OUTPUT Urine 828 1050 912 4220 Void (ml) 828 7370 332 1188 Urine Not Saved. 1 x 1 x Shift Total 828 2019 111 6881 Weight (kg) 70.3 70.3 70.3 70.3 70.3 70.3 70.3 70.3 ABNORMAL/NEW FINDINGS: NONE RADIOLOGY/DIAGNOSTICS: LABORATORY: CBC: Recent Labs 06/24/19 0336 WBC 7.09 RBC 3.04* HB 8.5* HCT 27.4* PLT 498* MCV 90.1 MCH 28.0 MPV 9.2 RDW 14.4 CMP: Recent Labs 06/24/19 0336 NA 136 K 4.2 CHLOR 101 CO2 32 BUN 11 CREAT 0.55* GLUC 160* CA 8.9 ANION 7* Heme: No results for input(s): RETICP, ABSRETIC, LD, VIKRAM, FE, TIBC, TRANSFERSAT in the last 24 hours. 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 ([facility]) Hypertension Gerd (Gastroesophageal Reflux Disease) Microalbuminuria History of Diabetic Gastroparesis Diabetic Polyneuropathy Associated With Type 1 Diabetes Mellitus (Hcc) Depression With Anxiety Charcot's Joint of Right Foot Hyperlipidemia Hep C W/O Coma, Chronic (Hcc) History of Drug Abuse in Remission ([facility]) Ivdu (Intravenous Drug User) Tobacco Abuse Left Ankle Joint Deformity Hyperglycemia Nicotine use disorder, F17.2 Closed Fracture of Left Ankle Sepsis (Hcc) Closed Trimalleolar Fracture of Left Ankle PLAN: Left BKA / secondary to complications from left tri-malleoli are ankle fracture?dislocation, left tibia acute osteomyelitis and left leg soft tissue necrosis Patient known to our team from recent admissions Challenging pain management with history of opiate dependence and polysubstance abuse Tylenol 650 mg every 6 hours when necessary Flexeril 5 mg by mouth 3 times a day when necessary Cymbalta 20 mg daily Discontinue morphine Dilaudid 0.5?1 mg IV every 3 hours when necessary breakthrough pain Change oxycodone 10 milligram every 3 hours when necessary Lyrica 100 mg by mouth 3 times a day Senna S twice a day Thank you for this consult Kenia Calvillo MD [facility] CONSULT PROGon 06-24-2019 CONSULT PROG HNO ID: [id number] Author: Lucita Del Real Service: Endocrinology Author Type: Physician Type: Consult Progress Note Filed: 06/24/2019 9:37 PM Note Text: ENDOCRINOLOGY CONSULT PROGRESS NOTE SERVICE DATE: 06/24/2019 SERVICE TIME: 9:29 PM Subjective INTERVAL HPI: Following for DM type 1. Adm with left ankle fracture after a fall, has left leg infection, cellulitis. Notes and orders reviewed. Was discharged 06/20 on NPH 20 units bid and humalog 10 units qac now on Humalog 8 units qac tid plus correction Went to OR on 06/15; readmitted with with redislocation of the tibiotalar joint and worsening fracture displacement; today s/p BKA. DIET CARBOHYDRATE CONTROLLED Recent Labs 06/24/19 2109 06/24/19 2101 06/24/19 1550 06/24/19 1100 06/24/19 0336 06/23/19 0230 GLUC 395* -- -- -- -- 160* -- 108* GLUCOSEMETER -- >400* 336* 228* < > -- < > -- < > = values in this interval not displayed. Current Facility-Administered Medications Medication Dose Route Frequency - pregabalin 100 mg cap(s) (LYRICA) 100 mg ORAL TID - lisinopril 10 mg tab(s) (ZESTRIL, PRINIVIL) 10 mg ORAL DAILY - pantoprazole DR 40 mg tab(s) (PROTONIX) 40 mg ORAL DAILY - DULoxetine 20 mg cap(s) (CYMBALTA) 20 mg ORAL DAILY - NaCl 0.9% 2-10 mL 2-10 mL INTRAVENOUS q 12 H - acetaminophen 650 mg tab(s) (TYLENOL) 650 mg ORAL q 6 H PRN - dextrose 40 % 15 g 15 g ORAL PRN Or - glucagon 1 mg injection (GLUCAGEN) 1 mg INTRAMUSCULAR PRN Or - dextrose 50 % 12.5 g injection 12.5 g INTRAVENOUS PRN - insulin lispro 8 Units pen (rapid acting) (HumaLOG KWIKPEN) 8 Units SUBCUTANEOUS w MEALS - insulin lispro 0-5 Units pen (rapid acting) (HumaLOG KWIKPEN) 0-5 Units SUBCUTANEOUS w MEALS - insulin NPH human 20 Units injection pen (intermediate acting) (NovoLIN N, HumuLIN N) 20 Units SUBCUTANEOUS BID - ceFAZolin iv piggyback 2 g in D5W (iso-osmotic) 100 mL (ANCEF) 2 g INTRAVENOUS q 8 H - HYDROmorphone HCl 0.5-1 mg injection (DILAUDID) 0.5-1 mg INTRAVENOUS q 3 H PRN - oxyCODONE IR 10 mg tab(s) (ROXICODONE) 10 mg ORAL q 3 H PRN - cyclobenzaprine 5-10 mg tab(s) (FLEXERIL) 5-10 mg ORAL q 8 H PRN - senna-docusate 8.6-50 mg 1 tablet (SENNA-S) 1 tablet ORAL BID Objective PHYSICAL EXAM: awake alert BP 141/90 Pulse 98 Temp (Src) 98.4 (Oral) Resp 16 Ht 5' 9 (1.75m) Wt 155 lb (70.3kg) SpO2 96% BMI 22.88 kg/(m2). O2 Therapy: Room Air, Liters: 9 DATA: Diagnostic tests reviewed for today's visit: Most recent labs and imaging results. 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 Home Rx is Levemir 25 units bid and Novolog 14 units tid with SSI. Was on 70/30 from 03/09 till 05/18 (while incarcerated) Saw Endo in [place] in September,; insulin changed to NPH 20 units bid and humalog 10 units qac tid plus correction. Resumed NPH to 20 units bid and humalog 8 units qac tid plus correction; did not get NPH this am as he was in surgery; was on D5% 1/2 NS at 50 cc/hour while NPO which was d/rl now; cont rx with insulin (liseth had NPH 20 units, Humalog 6 nits and 1 L of NS iv) ? Cellulitis/abscess left ankle, s/p debridement and external fixation of ankle fracture on 06/10. JOANNA normal. Went to OR again on 06/15 for debridement; now with redislocation of the tibiotalar joint and worsening fracture displacement s/p BKA 06/24 per Ortho ? IVDU (intravenous drug user) POA: Yes Assessment AND Plan: hx ? Closed fracture of left ankle POA: Yes Assessment AND Plan: trimalleolar, 4 weeks ago after a fall; with external fixator ? Abnormal thyroid function test; TSH 8.2 due to non-thyroidal illness; Low free T3 , free T4 normal at 1.3 and reverse T3 pending ? SIGNATURE: Lucita Del Real MD PATIENT NAME: Tori Cantor DATE: June 24, 2019 TIME: 9:35 PM PAGER: [phone] Normal [facility] Glucose Bloodon 06-24-2019 Glucose [Mass/Vol] 395 mg/dL High 70-99 [facility] Comment on above: Performed By: #### C BC1 #### [facility] [address] [place] [address] Hemogramon 06-24-2019 Erythrocyte distribution width (RBC) [Ratio] 14.4 % Normal 11.6-14.4 [facility] Comment on above: Performed By: #### C BC1 #### [place] [address] Hematocrit (Bld) [Volume fraction] 27.4 % Low 40.1-51.0 [facility] Comment on above: Performed By: #### C BC1 #### [place] [address] Hemoglobin (Bld) [Mass/Vol] 8.5 g/dL Low 13.7-17.5 [facility] Comment on above: Performed By: #### C BC1 #### [place] [address] MCH (RBC) [Entitic mass] 28.0 pg Normal 25.7-32.2 [facility] Comment on above: Performed By: #### C BC1 #### [place] [address] MCHC (RBC) [Mass/Vol] 31.0 % Low 32.3-36.5 [facility] Comment on above: Performed By: #### C BC1 #### [place] [address] MCV (RBC) [Entitic vol] 90.1 fL Normal 83.2-95.6 [facility] Comment on above: Performed By: #### C BC1 #### [place] [address] Platelet mean volume (Bld) [Entitic vol] 9.2 fL Normal 8.7-12.0 [facility] Comment on above: Performed By: #### C BC1 #### [facility] [address] [place] [address] Platelets (Bld) [#/Vol] 498 thou/cmm High 141-365 [facility] Comment on above: Performed By: #### C BC1 #### [facility] [address] [place] [address] RBC (Bld) [#/Vol] 3.04 mil/cmm Low 4.63-6.08 [facility] Comment on above: Performed By: #### C BC1 #### [facility] [address] [place] [address] RDW SD 47.4 fl High 36.1-45.8 [facility] Comment on above: Performed By: #### C BC1 #### [facility] [address] [place] [address] WBC (Bld) [#/Vol] 7.09 thou/cmm Normal 4.23-9.07 [facility] Comment on above: Performed By: #### C BC1 #### [place] [address] Hemogram/Diffon 06-24-2019 Abs Immature Grans 0.02 thou/cmm Normal 0.00-0.05 [facility] Comment on above: Performed By: #### C BC1 #### [facility] [address] [place] [address] Abs Neut (ANC) 4.80 thou/cmm Normal 1.78-5.38 [facility] Comment on above: Performed By: #### C BC1 #### [place] [address] Abs. Baso 0.09 thou/cmm High 0.01-0.08 [facility] Comment on above: Performed By: #### C BC1 #### [place] [address] Abs. [place] 0.59 thou/cmm Normal 0.30-0.82 [facility] Comment on above: Performed By: #### C BC1 #### [facility] [address] [place] [address] Basophils/100 WBC (Bld) 1.2 % Normal [facility] Comment on above: Performed By: #### C BC1 #### [facility] [address] [place] [address] Eosinophils (Bld) [#/Vol] 0.09 thou/cmm Normal 0.04-0.54 [facility] Comment on above: Performed By: #### C BC1 #### [facility] [address] [place] [address] Eosinophils/100 WBC (Bld) 1.2 % Normal [facility] Comment on above: Performed By: #### C BC1 #### [place] [address] Erythrocyte distribution width (RBC) [Ratio] 14.1 % Normal 11.6-14.4 [facility] Comment on above: Performed By: #### C BC1 #### [place] [address] Hematocrit (Bld) [Volume fraction] 26.5 % Low 40.1-51.0 [facility] Comment on above: Performed By: #### C BC1 #### [place] [address] Hemoglobin (Bld) [Mass/Vol] 8.4 g/dL Low 13.7-17.5 [facility] Comment on above: Performed By: #### C BC1 #### [facility] [address] [place] [address] Immature Grans 0.30 % Normal [facility] Comment on above: Performed By: #### C BC1 #### [facility] [address] [place] [address] Lymphocytes (Bld) [#/Vol] 1.72 thou/cmm Normal 0.84-2.85 [facility] Comment on above: Performed By: #### C BC1 #### [facility] [address] [place], [place] [address] Lymphocytes/100 WBC (Bld) 23.5 % Normal [facility] Comment on above: Performed By: #### C BC1 #### [facility] [address] [place], [place] [address] MCH (RBC) [Entitic mass] 28.6 pg Normal 25.7-32.2 [facility] Comment on above: Performed By: #### C BC1 #### [facility] [address] [place], [place] [address] MCHC (RBC) [Mass/Vol] 31.7 % Low 32.3-36.5 [facility] Comment on above: Performed By: #### C BC1 #### [facility] [address] [place], [place] [address] MCV (RBC) [Entitic vol] 90.1 fL Normal 83.2-95.6 [facility] Comment on above: Performed By: #### C BC1 #### [facility] [address] [place], [place] [address] Monocytes/100 WBC (Bld) 8.1 % Normal [facility] Comment on above: Performed By: #### C BC1 #### [facility] [address] [place], [place] [address] Platelet mean volume (Bld) [Entitic vol] 9.5 fL Normal 8.7-12.0 [facility] Comment on above: Performed By: #### C BC1 #### [facility] [address] [place], [place] [address] Platelets (Bld) [#/Vol] 448 thou/cmm High 141-365 [facility] Comment on above: Performed By: #### C BC1 #### [facility] [address] [place], [place] [address] RBC (Bld) [#/Vol] 2.94 mil/cmm Low 4.63-6.08 [facility] Comment on above: Performed By: #### C BC1 #### [facility] [address] [place], [place] [address] RDW SD 46.1 fl High 36.1-45.8 [facility] Comment on above: Performed By: #### C BC1 #### [facility] [address] [place], [place] [address] Seg Neutrophil 65.7 % Normal [facility] Comment on above: Performed By: #### C BC1 #### [facility] [address] [place], [place] [address] WBC (Bld) [#/Vol] 7.31 thou/cmm Normal 4.23-9.07 [facility] Comment on above: Performed By: #### C BC1 #### [facility] [address] [place], [place] [address] NURSING PROGon 06-24-2019 NURSING PROG HNO ID: [id number] Author: Alexsandra (Rn) MATT Lau Service: ? Author Type: Registered Nurse Type: Nursing Progress Note Filed: 06/24/2019 1:39 PM Note Text: 1320 DRFrandy CALVILLO TO CHECK PT AT BS Normal [facility] NURSING PROG HNO ID: [id number] Author: Alexsandra (Rn) MATT Lau Service: ? Author Type: Registered Nurse Type: Nursing Progress Note Filed: 06/24/2019 1:39 PM Note Text: 1338 voided 1200 drk yellow urine Normal [facility] OPERATIVE NOon 06-24-2019 OPERATIVE NO HNO ID: [id number] Author: Jayy Vogel Service: Orthopaedic Surgery Author Type: Physician Type: Operative Report Filed: 06/24/2019 2:17 PM Note Text: ORTHOPAEDIC OPERATIVE REPORT PATIENT NAME: Tori Cantor Surgery/Procedure Date: 06/24/2019 Incision/Procedure Start Time: 8:22 AM Incision Close/Procedure End Time: 10:35 AM Surgeon(s) and Innovation Manager(s): Surgeon(s) and Role: * Jayy Vogel - Primary No Additional Staff PRE-OPERATIVE DIAGNOSIS: 1) Left trimalleolar ankle fracture-dislocation 2) Left tibia acute osteomyelitis 3) Left leg soft tissue necrosis POST-OPERATIVE DIAGNOSIS: 1) Left trimalleolar ankle fracture-dislocation 2) Left tibia acute osteomyelitis 3) Left leg soft tissue necrosis SURGICAL PROCEDURE(S): 1) Removal spanning left ankle external fixator 2) Left below knee amputation Anesthesia: General Implantable Devices: None Complications: None Specimens: left below knee amputation Estimated Blood Loss: 200 mls OPERATIVE INDICATIONS: This is a 44 year old male who sustained a left trimalleolar ankle fracture dislocation on or around 05/27/2019. He was initially managed conservatively with reduction and splint application, allow time for medial soft tissue pressure ulcer resolution. The patient's treatment course has been complication by noncompliance with repeat weight bearing (in splint and external fixator) and multiple dislocations. He developed expanding infection of fracture blisters with necrosis of the soft tissues of the leg. Most recently, he ambulated with dislocation of the medial tibia through the soft tissues, resulting in definite osteomyelitis of the bone. Based on this history and underlying diabetes with contralateral limb charcot degenerative changes, recommendation for below knee amputation was made. The patient had a second opinion with Dr. Uriarte and was evaluated by the psychiatric service during this admission. Risks and benefits of the procedure were thoroughly reviewed with the patient on multiple occasions, and all questions answered. He agreed to proceed with the recommended surgical procedure. OPERATIVE PROCEDURE: The patient was brought to the operating room on the hospital bed, and transferred supine to the operating table. He was intubated per Anesthesia. The [facility] timeout protocol was performed. The spanning external fixator including half pins in the tibia and a cross pin in the left calcaneus were removed in their entirety. The left lower extremity was pre-washed with chlorhexidine. Clinical photographs were obtained. A left thigh tourniquet was applied. The extremity was was padded prepped and sterilely draped for the procedure. The limb was elevated and the tourniquet inflated. The amputation incision and planned bone cuts were measured distally from the inferior pole of the patella with a posterior flap away from the necrotic leg wounds. Skin incision was made, followed by electrocautery for hemostasis. The anterior and lateral compartments were carefully cut with electrocautery. Neurovascular structures were identified and tagged with hemostats. A standard tibial and fibular bone cut was made. The amputation knife was used to complete the soft tissue cut and the lower extremity was passed off the field. The posterior neurovascular structures were identified and tagged with hemostats. All nerves were carefully dissected and cut sharply proximally, allowing retraction into the proximal soft tissues. All large veins and arteries were tied multiple times with ethibond suture. The tourniquet was deflated and manual pressure held for five minutes. Electrocautery was used for hemostasis. All large vessels were inspected and hemostasis confirmed. The wound was irrigated with saline. Closure of the flap was performed through the fascia with 1 vicryl suture. The soft tissues were closed with 0 vicryl and 2-0 vicryl suture. [place] were applied to the skin layer. The half pin external fixator percutaneous incisions were debrided with a curet and irrigated. Sterile dressings were applied. All draping was removed. The patient was extubated per Anesthesia. He was returned to the hospital bed and taken to the recovery room in stable condition. POST-OPERATIVE PLAN: Non-weight bearing left lower extremity with physical and occupational therapy. [facility] referral for RRD placement prior to discharge POD#2-3. Ongoing IV Ancef per ID recommendations. Pain management consult for pain control with history of substance abuse. Anticipate discharge to SNF after hospital stay. Remains high risk for revision amputation to higher level based on history. No family present to update regarding post-surgical state. I/primary surgeon/proceduralist performed the procedure with assistance. SIGNATURE: Jayy Vogel MD DATE: June 24, 2019 TIME: 1:46 PM Normal [facility] PROGRESSon 06-24-2019 PROGRESS HNO ID: [id number] Author: Donnell Garcia Service: Infectious Disease Author Type: Physician Type: Progress Notes Filed: 06/24/2019 5:56 PM Note Text: INFECTIOUS DISEASE PROGRESS NOTE Patient Name: Tori Cantor Date: 06/24/2019 ASSESSMENT: 1.?Left ankle fracture/ dislocation with large area of necrotic skin, fascia and muscle s/p I and D on 06/15/2019?(MSSA) and now s/p removal spanning left ankle external fixator 2) Left below knee amputation 06/24/2019 ?- now with exposed necrotic tibia 2. Left distal tibial osteomyelitis due to MSSA 3. High grade MSSA bacteremia?cleared 06/12, negative JOANNA 4. Type 1 diabetes- uncontrolled? ? PLAN: Continue with cefazolin for 48 hours post amputation and then will start PO Keflex 500 mg bid for 7 more days Bacteremia cleared 06/12 so 2 weeks of therapy with cefazolin ends in 48 hours as well. INTERVAL HISTORY: ROS done with pt/RN and negative unless stated. Resting in bed Afebrile Had left BKA MEDICATIONS: reviewed. Current Facility-Administered Medications Medication Dose Route Frequency - pregabalin 100 mg cap(s) (LYRICA) 100 mg ORAL TID - lisinopril 10 mg tab(s) (ZESTRIL, PRINIVIL) 10 mg ORAL DAILY - pantoprazole DR 40 mg tab(s) (PROTONIX) 40 mg ORAL DAILY - DULoxetine 20 mg cap(s) (CYMBALTA) 20 mg ORAL DAILY - NaCl 0.9% 2-10 mL 2-10 mL INTRAVENOUS q 12 H - acetaminophen 650 mg tab(s) (TYLENOL) 650 mg ORAL q 6 H PRN - dextrose 40 % 15 g 15 g ORAL PRN Or - glucagon 1 mg injection (GLUCAGEN) 1 mg INTRAMUSCULAR PRN Or - dextrose 50 % 12.5 g injection 12.5 g INTRAVENOUS PRN - insulin lispro 8 Units pen (rapid acting) (HumaLOG KWIKPEN) 8 Units SUBCUTANEOUS w MEALS - insulin lispro 0-5 Units pen (rapid acting) (HumaLOG KWIKPEN) 0-5 Units SUBCUTANEOUS w MEALS - insulin NPH human 20 Units injection pen (intermediate acting) (NovoLIN N, HumuLIN N) 20 Units SUBCUTANEOUS BID - dextrose 5% in NaCl 0.45% iv infusion 50 mL/hr INTRAVENOUS CONTINUOUS - ceFAZolin iv piggyback 2 g in D5W (iso-osmotic) 100 mL (ANCEF) 2 g INTRAVENOUS q 8 H - HYDROmorphone HCl 0.5-1 mg injection (DILAUDID) 0.5-1 mg INTRAVENOUS q 3 H PRN - oxyCODONE IR 10 mg tab(s) (ROXICODONE) 10 mg ORAL q 3 H PRN - cyclobenzaprine 5-10 mg tab(s) (FLEXERIL) 5-10 mg ORAL q 8 H PRN - senna-docusate 8.6-50 mg 1 tablet (SENNA-S) 1 tablet ORAL BID PHYSICAL EXAM: Vital signs: BP 153/89 Pulse 90 Temp 37 ?C (98.6 ?F) (Oral) Resp 12 Ht 175.3 cm (5' 9) Wt 70.3 kg (155 lb) SpO2 97% BMI 22.89 kg/m? Temp (24hrs), Av.9 ?C (98.4 ?F), Min:36.4 ?C (97.5 ?F), Max:37.4 ?C (99.3 ?F) GEN: Alert, pleasant, NAD HEENT: PERRL, moist oral mucosa, neck supple PULM: CTA bilateral, no rhonchi/wheezes. CV: RRR GI: soft, non distended, non tender, BSx4 : no chen, no CVAT EXT:?left BKA,dressing SKIN: no rash NEURO: no focal deficits, Alert and oriented x3 LINES: PICC site clean? Lab data: reviewed Recent Labs 06/24/19 1621 06/24/19 0336 06/23/19 0230 06/22/19 0640 06/21/19 1818 WBC 7.31 7.09 7.55 8.38 < > -- HB 8.4* 8.5* 8.5* 8.7* < > -- PLT 448* 498* 584* 616* < > -- INR -- -- -- -- -- 1.01 NA -- 136 138 138 -- -- K -- 4.2 3.9 4.1 -- -- CO2 -- 32 33* 32 -- -- BUN -- 11 9 9 -- -- CREAT -- 0.55* 0.61* 0.61* -- -- < > = values in this interval not displayed. Microbiology data: reviewed Imaging data: reviewed Donnell Garcia MD General and Orthopedics Infectious Diseases Pager: [phone] [facility] PROGRESS HNO ID: [id number] Author: Clinton Banda Service: Hospital Medicine Author Type: Physician Type: Progress Notes Filed: 06/24/2019 4:37 PM Note Text: DEPARTMENT OF HOSPITAL MEDICINE PROGRESS NOTE SERVICE DATE: 06/24/2019 SERVICE TIME: 4:35 PM Hospital Medicine/Primary Attending: Clinton Banda MD NIGHT AND WEEKEND COVERAGE: After 7pm please page [phone] SUBJECTIVE: F/u amputation. No CP SOB NVD. Severe pain after surgery. OBJECTIVE: PHYSICAL EXAM: BP 153/89 Pulse 90 Temp (Src) 98.6 (Oral) Resp 12 Ht 5' 9 (1.75m) Wt 155 lb (70.3kg) SpO2 97% BMI 22.88 kg/(m2). O2 Therapy: Room Air, Liters: 3 General - AANDOx3, NAD, Calm CV - RRR S1 S2, No M/R/G RESP - CTA B/L No wheezes, ronchi, rales ABD - soft, NT, ND +BS ENT- no icterus Neuro- No dysarthria MEDICATIONS: Current Facility-Administered Medications Medication Dose Route Frequency - pregabalin 100 mg cap(s) (LYRICA) 100 mg ORAL TID - lisinopril 10 mg tab(s) (ZESTRIL, PRINIVIL) 10 mg ORAL DAILY - pantoprazole DR 40 mg tab(s) (PROTONIX) 40 mg ORAL DAILY - DULoxetine 20 mg cap(s) (CYMBALTA) 20 mg ORAL DAILY - NaCl 0.9% 2-10 mL 2-10 mL INTRAVENOUS q 12 H - acetaminophen 650 mg tab(s) (TYLENOL) 650 mg ORAL q 6 H PRN - dextrose 40 % 15 g 15 g ORAL PRN Or - glucagon 1 mg injection (GLUCAGEN) 1 mg INTRAMUSCULAR PRN Or - dextrose 50 % 12.5 g injection 12.5 g INTRAVENOUS PRN - insulin lispro 8 Units pen (rapid acting) (HumaLOG KWIKPEN) 8 Units SUBCUTANEOUS w MEALS - insulin lispro 0-5 Units pen (rapid acting) (HumaLOG KWIKPEN) 0-5 Units SUBCUTANEOUS w MEALS - insulin NPH human 20 Units injection pen (intermediate acting) (NovoLIN N, HumuLIN N) 20 Units SUBCUTANEOUS BID - dextrose 5% in NaCl 0.45% iv infusion 50 mL/hr INTRAVENOUS CONTINUOUS - ceFAZolin iv piggyback 2 g in D5W (iso-osmotic) 100 mL (ANCEF) 2 g INTRAVENOUS q 8 H - HYDROmorphone HCl 0.5-1 mg injection (DILAUDID) 0.5-1 mg INTRAVENOUS q 3 H PRN - oxyCODONE IR 10 mg tab(s) (ROXICODONE) 10 mg ORAL q 3 H PRN - cyclobenzaprine 5-10 mg tab(s) (FLEXERIL) 5-10 mg ORAL q 8 H PRN - senna-docusate 8.6-50 mg 1 tablet (SENNA-S) 1 tablet ORAL BID DATA: Diagnostic tests reviewed for today's visit: CBC: Recent Labs 06/24/19335 WBC 7.09 RBC 3.04* HB 8.5* HCT 27.4* PLT 498* MCV 90.1 MCH 28.0 MPV 9.2 RDW 14.4 Coags: No results for input(s): INR, APTT in the last 24 hours. Invalid input(s): PT BMP: Recent Labs 06/24/196 NA 136 K 4.2 CHLOR 101 CO2 32 BUN 11 CREAT 0.55* GLUC 160* CMP: Recent Labs 06/24/19 0336 NA 136 K 4.2 CHLOR 101 CO2 32 BUN 11 CREAT 0.55* GLUC 160* CA 8.9 ANION 7* Cardiac Enzymes: No results for input(s): CK, MB, CKMB, TROPT in the last 24 hours. Liver Function, Amylase, Lipase: No results for input(s): TPROT, ALB, ALT, AST, ALKPHOS, TBILI, AMYLASE, LIPASE, LACTATE in the last 24 hours. MG/PHOS: No results for input(s): MG, P in the last 24 hours. Renal Panel: Recent Labs 06/24/19 0336 CREAT 0.55* BUN 11 GLUC 160* CA 8.9 CHLOR 101 K 4.2 CO2 32 NA 136 Heme: No results for input(s): RETICP, ABSRETIC, LD, VIKRAM, FE, TIBC, TRANSFERSAT in the last 24 hours. No results found for: UALBCR Assessment/Plan Closed trimalleolar fracture of left ankle POA: Yes Assessment AND Plan: per primary - s/p amputation 06-24-19 ? [place] Type 1 Diabetic- Consult Endo for this, showing good control. ? Chronic Pain- Will likely need adjusted after amputation, and Dr. Calvillo has done htis ? HTN- Stable on this regimen ? Noncompliance ? Polysubstance Abuse- Cessate All medical issues managed by Specialists. BP ok. Medicine will SIGN OFF, page with questions. VTE Prophylaxis: Lovenox 40mg Sub Q Daily Disposition: Extended Care Facility Plan of care discussed with: Patient SIGNATURE: Clinton Banda MD PATIENT NAME: Tori Cantor DATE: June 24, 2019 TIME: 4:35 PM PAGER/CONTACT #: My Pager Normal [facility] PROGRESS HNO ID: [id number] Author: Clinton Banda Service: Hospital Medicine Author Type: Physician Type: Progress Notes Filed: 06/24/2019 7:51 AM Note Text: In OR right now getting amputation. BP Stable. Have ordered a CBC in AM. Normal [facility] PROGRESS HNO ID: [id number] Author: Valdemar Song Service: Orthopaedic Surgery Author Type: Resident Type: Progress Notes Filed: 06/24/2019 6:17 AM Note Text: ORTHOPAEDIC SURGERY DAILY PROGRESS NOTE ASSESSMENT: 44 year old male with L bimalleolar ankle fracture/dislocation s/p external fixation and multiple IANDDs for infected fracture blisters; now with redislocation of the tibiotalar joint and worsening fracture displacement PLAN: -Pain Control -Non Weight Bearing on Left lower extremity. History of difficult complete compliance with this WB status. -DVT Prophylaxis: SCDs; Hold for surgery -Appreciate continued medical management from consultants -OR today for L BKA with removal of external fixator -NPO/IVF -Ice/elevate extremity INTERVAL HPI: Patient monitored, no new events overnight. Complains of some pain in L leg. Is prepared for his amputation tomorrow. OBJECTIVE: BP 130/85 Pulse 85 Temp 36.7 ?C (98.1 ?F) (Oral) Resp 16 Ht 175.3 cm (5' 9) Wt 70.3 kg (155 lb) SpO2 98% BMI 22.89 kg/m? Intake/Output Summary (Last 24 hours) 06/23 2300 - 06/24 0659 In: - Out: 750 [Urine:750] Exam: General: NAD, AAOx3 Left Lower Extremity: Dressing clean, dry and intact. External fixator in place Foot warm with brisk capillary refill Compartments soft, compressible. Tolerates passive stretch of digits. Labs: WBC (thou/cmm) Date Value 06/23/2019 7.55 RBC (mil/cmm) Date Value 06/23/2019 3.09 (L) Hemoglobin (g/dL) Date Value 11/11/2016 14.2 HGB (g/dL) Date Value 06/23/2019 8.5 (L) Hematocrit (%) Date Value 06/23/2019 28.2 (L) MCV (fl) Date Value 06/23/2019 91.3 MCH (pg) Date Value 06/23/2019 27.5 MCHC (%) Date Value 06/23/2019 30.1 (L) RDW-CV (%) Date Value 11/11/2016 13.7 Platelet Count (thou/cmm) Date Value 06/23/2019 584 (H) MPV (fl) Date Value 06/23/2019 9.4 Glucose (mg/dL) Date Value 06/23/2019 108 (H) BUN (mg/dL) Date Value 06/23/2019 9 Creatinine (mg/dL) Date Value 06/23/2019 0.61 (L) Sodium (mEq/L) Date Value 06/23/2019 138 Potassium (mEq/L) Date Value 06/23/2019 3.9 Chloride (mEq/L) Date Value 06/23/2019 102 CO2 (mEq/L) Date Value 06/23/2019 33 (H) Protein, Total (g/dL) Date Value 06/20/2019 7.4 Albumin (g/dL) Date Value 06/20/2019 1.9 (L) Calcium (mg/dL) Date Value 06/23/2019 9.0 Alkaline Phosphatase (U/L) Date Value 06/20/2019 117 Bilirubin, Total (mg/dL) Date Value 06/20/2019 0.3 AST (U/L) Date Value 06/20/2019 16 ALT (U/L) Date Value 06/20/2019 10 (L) Imaging: Reviewed. See consultation note. Valdemar Song MD Orthopaedic Surgery, PGY-3 Pager: [phone] Ortho Pager: [phone] Normal [facility] Reverse T3on 06-24-2019 Reverse T3 18.0 Normal [facility] Comment on above: Result Comment: Refe rence range: 9.0 to 27.0 Unit: ng/dL (NOTE) INTERPRETIVE INFORMATION: Triiodothyronine, Reverse - LC-MS/MS Test developed and characteristics determined by [facility]. See Compliance Statement B: [employer] Performed by [facility], [address] [place] [address] [email or web address], Matt Bean MD, Lab. Director Performing Laboratory: Performed By: #### C BC1 #### [place] [address] Surgical Tissue Examon 06-24 Surgical Tissue Exam Test performed at [place] [address] NAME: TORI CANTOR REQUESTING: JAYY VOGEL M.D. FINAL DIAGNOSIS: LEG, LEFT, BELOW THE KNEE AMPUTATION - SKIN ULCERATION AND DEEP SOFT TISSUE WITH ACUTELY INFLAMED NECROTIZING ABSCESS FORMATION. FEATURES SUGGESTIVE OF ACUTE OSTEOMYELITIS WITH MARROW NECROSIS. ATHEROSCLEROSIS AND VASCULAR CALCIFICATIONS. OPERATIVE PROCEDURE: Amputation below knee extremity lower CLINICAL INFORMATION: Osteomyelitis [M86.9] GROSS DESCRIPTION: Left below knee amputation Received in formalin labeled left below knee amputation is a specimen consisting of a left below the knee amputation measuring 35.0 cm from line of resection to heel and 25.5 cm from heel to toe. The anterior medial surface of the leg displays multiple mariscal-green ulcerated lesions ranging in size from 5.5 to 10.0 cm in greatest dimension. The closest one extends within 1.3 cm of the soft tissue line of resection. The soft tissue line of resection does appear grossly viable. Also identified is a green gangrenous process on the medial aspect of the foot measuring 8.5 x 4.0 cm. Upon sectioning, these processes involve the underlying soft tissue and involve the underlying bone. Sectioning the vessels in the region display grossly unremarkable vessels. Atherosclerosis is not present. Thrombi are not present. Corporate Investigator sections are submitted as follows: 1 - line of resection with ulcerated area (black ink, line of resection); 2-4 - additional technical service representative sections of ulcerated areas; 5 - technical service representative sections of vessels; 6 - technical service representative section of bone involved by ulcerative process following a period of decalcification. KVB:skyler MCBRIDE M.D. PATHOLOGIST (Electronic signature on file) Signed out: 07/05/2019 15:03 PRINTED: 07/05/2019 Page 1 of 1 Normal [facility] Comment on above: Performed By: #### P 8 #### [place] [address] ALLIED HEALTHon 06-23-2019 ALLIED HEALTH HNO ID: [id number] Author: Chaplain Acuna (Chaplain) Service: ? Author Type: Type: Allied Health Filed: 06/23/2019 7:05 PM Note Text: SPIRITUAL CARE PROGRESS NOTE SERVICE DATE: 06/23/2019 SERVICE TIME: 6:40 PM As , I visited PT while rounding Tomorrow's Scheduled Surgery. PT spoke of being conflicted as he is scheduled to have his leg amputated tomorrow. PT spoke of family challenges that lead to minimal support. I had prayer with PT and also provided spiritual presence and comfort. To contact the Spiritual Care Department: Please call [phone]. SIGNATURE: Chaplain [employer] PATIENT NAME: Tori Cantor DATE: June 23, 2019 TIME: 7:00 PM PAGER/CONTACT #: [phone] Normal [facility] Basic Panelon 06-23-2019 Creatinine [Mass/Vol] 0.61 mg/dL Low 0.67-1.17 [facility] Comment on above: Performed By: #### C BC1 #### [address] [address] Anion gap [Moles/Vol] 7 mmol/L Low 8-16 [facility] Comment on above: Performed By: #### C BC1 #### [address] [address] CO2 [Moles/Vol] 33 mmol/L High 21-32 [facility] Comment on above: Performed By: #### C BC1 #### [address] [address] Glucose [Mass/Vol] 108 mg/dL High 70-99 [facility] Comment on above: Performed By: #### C BC1 #### [facility] [address] [place], [place] [address] Urea nitrogen [Mass/Vol] 9 mg/dL Normal 7-18 [facility] Comment on above: Performed By: #### C BC1 #### [address] [address] Calcium [Mass/Vol] 9.0 mg/dL Normal 8.5-10.1 [facility] Comment on above: Performed By: #### C BC1 #### [facility] [address] [place], [place] [address] Chloride [Moles/Vol] 102 mmol/L Normal 98-107 [facility] Comment on above: Performed By: #### C BC1 #### [facility] [address] [place], [place] [address] Potassium [Moles/Vol] 3.9 mmol/L Normal 3.5-5.1 [facility] Comment on above: Performed By: #### C BC1 #### [facility] [address] [place], [place] [address] Sodium [Moles/Vol] 138 mmol/L Normal 136-145 [facility] Comment on above: Performed By: #### C BC1 #### [facility] [address] [place], [place] [address] CONSULTon 06-23-2019 CONSULT HNO ID: [id number] Author: Darrel Lewis Service: Psychology Author Type: Psychologist Type: Consults Filed: 06/24/2019 11:06 AM Note Text: CONFIDENTIAL Psychology Inpatient Consult Name: Tori Cantor : 1975 Date of Service: June 23, 2019 Start Time: 11:10am End Time: 12:10am Procedure Code: [id number] Obtained verbal informed consent for treatment. 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 Reason for Consult: Tori Cantor is a 44 year old White male who was readmitted to [facility] ED on 06/21/19 due to increased displacement of his tibia through his distal wound. He was initially admitted on 06/10/19 due to complaints of deformity of his left ankle and a left trimalleolar fracture with cellulitis; he was treated and discharged to a senior living facility on 06/20/2019. Per his medical record, Tori is now scheduled for a below the knee amputation on 06/24/2019. A psychological consult was requested due to his history of medical noncompliance and resulting worsening physical health. His medical record was reviewed prior to this consultation and will not be reiterated here. General Observations: Tori was interviewed independently for one hour in his hospital room. He was alert and oriented during the course of our interview. His thought processes were generally clear, however, he tended to be highly tangential and was overly detailed in his responses. He spoke at a fast rate and his speech was pressured. There was no evidence of perceptual disturbances or delusional cognitions. Although no formal evaluation of cognition was conducted, he did not demonstrate any overt impairment in cognitive functioning during the interview. He was receptive to the consultation and readily provided details regarding his personal history. He described his mood as depressed due to his worsening health and imminent amputation. He seemed to be able to accurately recall details regarding the events that led up to his his current admission, although his judgement and insight was poor. He denied current suicidal or homicidal ideation, intent, or plan. Consult Content: Upon initiation of the consult, Tori provided a detailed report of the events that led up to his current admission. The details will not be reiterated here as this is documented in his medical record. However, of note, throughout his report, Tori detailed several occasions during which he was not compliant with medical advice. For example, following his discharge from the ED on 05/31/19, while staying in the senior living facility he indicated that he had an incident during which he defecated on himself. He indicated that he attempted to clean himself rather than seeking the support of a nurse, which resulted in him placing weight on his injured leg leading to the further damage. Although it is unclear, it is likely that similar noncompliance resulted in his current readmission. He also detailed an incident during which he asked for support to use the bathroom, but staff recommended that he use a bedpan instead, which resulted in him becoming extremely angry. He seems to lack some insight regarding the impact of these choices and acknowledges little responsibilty. Based on his description of his interactions with health care providers, he seems to be an individual who holds strong opinions and has difficulty understanding the rationale for particular medical recommendations. However, he described having an understanding of the need for an amputation and believes that this is the correct choice based on the information that was provided to him by the treatment team. He described experiencing symptoms of depression due to the imminent loss of his leg. Tori indicated that he has been experiencing chronic depression since the age of 16 or 17. At that time, he experienced a significant amount of trauma and loss including the of his grandmother, the sudden of his uncle to a brain aneurysm (he discovered his body), and the of his close friend to suicide. He indicated that he started to abuse substances around this time and used multiple substances (tobacco, cocaine, methamphetamine, alcohol, marijuana, fentanyl) on a daily basis for approximately 30 years. He indicated that cocaine and other stimulant drugs have been his choice substances. He experienced a number of other significant life events throughout his life that contributed to worsening depression and drug dependence including witnessing friends who have overdosed on drugs, going through a divorce in 2007, and witnessing other violent crimes both in his community and while in halfway. He attempted suicide three times, twice by overdosing on medications and once by attempting to hang himself. It was unclear when these attempts occurred, although he seemed to report that they occurred between 2013-. On one occasion, the suicide attempt resulted in an inpatient hospital stay at [facility]. He indicated that he has been sober for approximately 1 year, although he has had periodic relapses. Although, he current smokes one pack of cigarettes per day. He was arrested for 2 counts of drug possession 1 year ago and was forced to take part in various drug and alcohol programs with mandatory drug screening (inpatient for 1 month, IOP program, outpatient counseling) in order to prevent halfway time. He complied with this for a period of time, however, reported becoming irritated with the programs and chose to spend 6 months in halfway instead. However, he believes the outpatient therapy was beneficial and continues to have a relationship with his counselor. He was released on 05/18/19. He previously spent 120 days in halfway following his divorce for violating a retraining order. Tori indicated that he grew up in a family home with his mother, father, and grandparents. He described his father as strict and his mother as crazy and as having many medical issues. She . He indicated that he has always had a difficult time communicating with his father. Tori reported having significant academic difficulties throughout school. He was one credit short from obtaining his high school diploma. He met his ex- at the age of 17 and they were in 1998. They had two sons, ages 14 and 17. Him and his in 2007 and Tori indicated that he never healed from the separation. He continues to have difficulty with his ex- and is currently attempting to negotiate with her so that he can spend time with his sons. He worked at [employer] from [id number]. The company closed down and he went on to work in various other jobs. However, he believes that symptoms of depression and drug dependence worsened following his divorce, which made it difficult to maintain steady employment. He applied for disability in 2014 and started to receive SSI in 2016. Medical History (Major medical issues; surgeries; chronic pain): 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 - Pancreatitis 08/2014 - Tobacco abuse 05/27/2019 - Trimalleolar fracture of left ankle Prescription Drugs (record name, purpose, dosage): Current Facility-Administered Medications Medication Dose Route Frequency - insulin lispro 8 Units pen (rapid acting) (HumaLOG KWIKPEN) 8 Units SUBCUTANEOUS w MEALS - insulin lispro 0-5 Units pen (rapid acting) (HumaLOG KWIKPEN) 0-5 Units SUBCUTANEOUS w MEALS - insulin NPH human 20 Units injection pen (intermediate acting) (NovoLIN N, HumuLIN N) 20 Units SUBCUTANEOUS BID - pregabalin 100 mg cap(s) (LYRICA) 100 mg ORAL TID - lisinopril 10 mg tab(s) (ZESTRIL, PRINIVIL) 10 mg ORAL DAILY - ceFAZolin iv piggyback 2 g in D5W (iso-osmotic) 100 mL (ANCEF) 2 g INTRAVENOUS q 8 H - pantoprazole DR 40 mg tab(s) (PROTONIX) 40 mg ORAL DAILY - DULoxetine 20 mg cap(s) (CYMBALTA) 20 mg ORAL DAILY - cyclobenzaprine 5 mg tab(s) (FLEXERIL) 5 mg ORAL q 8 H PRN - NaCl 0.9% 2-10 mL 2-10 mL INTRAVENOUS q 12 H - docusate sodium 100 mg cap(s) (COLACE) 100 mg ORAL BID - morphine 2 mg injection 2 mg INTRAVENOUS q 2 H PRN - oxyCODONE IR 5-10 mg tab(s) (ROXICODONE) 5-10 mg ORAL q 4 H PRN - acetaminophen 650 mg tab(s) (TYLENOL) 650 mg ORAL q 6 H PRN - dextrose 40 % 15 g 15 g ORAL PRN Or - glucagon 1 mg injection (GLUCAGEN) 1 mg INTRAMUSCULAR PRN Or - dextrose 50 % 12.5 g injection 12.5 g INTRAVENOUS PRN Diagnosis: Major depressive disorder, recurrent Polysubstance use disorder, in remission (per patient) 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 He was initially admitted on 06/10/19 due to complaints of deformity of his left ankle and a left trimalleolar fracture with cellulitis; he was treated and discharged to a senior living facility on 06/20/2019. Per his medical record, Tori is now scheduled for a below the knee amputation on 06/24/2019. A psychological consult was requested due to his history of medical noncompliance and resulting worsening physical health. Tori has a complicated history of polysubstance dependence, severe depression, multiple suicide attempts, and significant medial issues. He also reported a lifelong history of significant life stressors and traumas starting at the age of 13, which have contributed to worsening psychiatric illness. He reported current abstinence from illicit substances for the past year, with occasional relapses. Psychoeducation was provided regarding the usefulness of psychotherapy and psychotropic medications for managing symptoms of depression and for helping him to maintain sobriety. He expressed a desire to continue to maintain sobriety, although does not currently believe that additional psychiatric treatment is necessary. I will provide Tori with contact information for our office so that he can seek outpatient psychiatric care in the future if required. He was also encouraged to connect with his previous drug counselor given that they had a positive working relationship. Regarding medical compliance, based on his description of the choices that he has made regarding his health, Tori seems to lack insight regarding the impact of these choices on his worsening health and acknowledges little responsibilty. He likely posses low health literacy and seems to have difficulty understanding the rationale for some recommendations. He also seems to be an individual who is quick to anger when he needs are not met. Despite this, he seemed to understand the severity of his current condition and is agreeable to move forward with the amputation as he believes this is his best option after hearing from multiple members of the treatment team. Psychoeducation was provided to him regarding the purpose for medical recommendations in supporting his health and he was encouraged to examine how his choices have impacted his current condition. It could be helpful for his treatment team to spend additional time discussing medical recommendations with him to ensure his understanding and to provide a thorough explanation of the rationale (including associated risks) for them. He also seems to be an individual who is likely to attempt to take his care into his own hands, which leads to poor decisions. Psychoeducation was provided regarding the need for him to ask staff for support; it may be helpful for his treatment team to continue to reinforce the importance of seeking help from them during his upcoming recovery. Lastly, a discussion was had regarding noncompliance with the management of diabetes. He expressed a desire to slow the progression of similar difficulties occurring in his right leg. He was reminded that managing diabetes will help with this. It could be helpful for him to receive additional information regarding skills for managing diabetes either while admitted to the hospital or during outpatient care. Thank you for this consult. Please feel free to contact us with any additional questions. I have supervised the service reflected in this note and concur with the findings and treatment plan outlined herein. Darrel Lewis, Ph.D. Chief of Psychology/Fellowship Director [facility] Behavioral Medicine Clinical eligibility analyst [facility] Paola Novak PsyD [facility] [employer] *This note was transcribed using voice recognition software and minor inaccuracies may be present as a result. *This is a strictly confidential patient medical record. Redisclosure or transfer is expressly prohibited by law. Normal [facility] CONSULT PROGon 06-23-2019 CONSULT PROG HNO ID: [id number] Author: Lucita Del Real Service: Endocrinology Author Type: Physician Type: Consult Progress Note Filed: 06/23/2019 8:44 PM Note Text: ENDOCRINOLOGY CONSULT PROGRESS NOTE SERVICE DATE: 06/23/2019 SERVICE TIME: 12:00 PM Subjective INTERVAL HPI: Following for DM type 1. Adm with left ankle fracture after a fall, has left leg infection, cellulitis. Notes and orders reviewed. Was discharged 06/20 on NPH 20 units bid and humalog 10 units qac; Went to OR again on 06/15. readmitted Current Facility-Administered Medications Medication Dose Route Frequency - pregabalin 100 mg cap(s) (LYRICA) 100 mg ORAL TID - lisinopril 10 mg tab(s) (ZESTRIL, PRINIVIL) 10 mg ORAL DAILY - ceFAZolin iv piggyback 2 g in D5W (iso-osmotic) 100 mL (ANCEF) 2 g INTRAVENOUS q 8 H - pantoprazole DR 40 mg tab(s) (PROTONIX) 40 mg ORAL DAILY - DULoxetine 20 mg cap(s) (CYMBALTA) 20 mg ORAL DAILY - cyclobenzaprine 5 mg tab(s) (FLEXERIL) 5 mg ORAL q 8 H PRN - NaCl 0.9% 2-10 mL 2-10 mL INTRAVENOUS q 12 H - docusate sodium 100 mg cap(s) (COLACE) 100 mg ORAL BID - morphine 2 mg injection 2 mg INTRAVENOUS q 2 H PRN - oxyCODONE IR 5-10 mg tab(s) (ROXICODONE) 5-10 mg ORAL q 4 H PRN - acetaminophen 650 mg tab(s) (TYLENOL) 650 mg ORAL q 6 H PRN - dextrose 40 % 15 g 15 g ORAL PRN Or - glucagon 1 mg injection (GLUCAGEN) 1 mg INTRAMUSCULAR PRN Or - dextrose 50 % 12.5 g injection 12.5 g INTRAVENOUS PRN - insulin lispro 8 Units pen (rapid acting) (HumaLOG KWIKPEN) 8 Units SUBCUTANEOUS w MEALS - insulin lispro 0-5 Units pen (rapid acting) (HumaLOG KWIKPEN) 0-5 Units SUBCUTANEOUS w MEALS - insulin NPH human 20 Units injection pen (intermediate acting) (NovoLIN N, HumuLIN N) 20 Units SUBCUTANEOUS BID - [START ON 06/24/2019] dextrose 5% in NaCl 0.45% iv infusion 50 mL/hr INTRAVENOUS CONTINUOUS Objective PHYSICAL EXAM: GENERAL: Alert, no distress, cooperative HEAD/SINUSES: No significant findings OROPHARYNX: Lips, mucosa, and tongue normal. Teeth and gums normal. Oropharynx normal., moist mm NECK: No jugulovenous distention, No carotid bruits, Carotid pulse normal contour, Supple LUNGS: Lungs clear to auscultation, Good diaphragmatic excursion CARDIAC: Normal S1 and S2; no rubs, murmurs, or gallops ABDOMEN: Abdomen soft, non-tender, BS normal, No masses or organomegaly EXTREMITIES: left ankle with external fixation; edematous wrapped BP 137/83 Pulse 85 Temp (Src) 98.6 (Temporal) Resp 16 Ht 5' 9 (1.75m) Wt 155 lb (70.3kg) SpO2 94% BMI 22.88 kg/(m2). O2 Therapy: Room Air DATA: Diagnostic tests reviewed for today's visit: Most recent labs and imaging results. 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 Home Rx is Levemir 25 units bid and Novolog 14 units tid with SSI. Was on from 03/09 till 05/18 (while incarcerated) Saw Endo in [place] in September,; insulin changed to NPH 20 units bid and humalog 10 units qac tid plus correction. ResumeNPH to 20 units bid and humalog 8 units qac tid plus correction; cont rx ? Cellulitis/abscess left ankle, s/p debridement and external fixation of ankle fracture on 06/10. JOANNA normal. Went to OR again on 06/15 for debridement; now with redislocation of the tibiotalar joint and worsening fracture displacement BKA vs AKA 06/24 per Ortho ? IVDU (intravenous drug user) POA: Yes Assessment AND Plan: hx ? Closed fracture of left ankle POA: Yes Assessment AND Plan: trimalleolar, 4 weeks ago after a fall; with external fixator ? Abnormal thyroid function test; TSH 8.2 due to non-thyroidal illness; Low free T3 , free T4 normal at 1.3 and reverse T3 pending ? SIGNATURE: Lucita Del Real MD PATIENT NAME: Tori Cantor DATE: June 23, 2019 TIME: 8:35 PM PAGER: [phone] Normal [facility] Hemogramon 06-23-2019 Erythrocyte distribution width (RBC) [Ratio] 14.4 % Normal 11.6-14.4 [facility] Comment on above: Performed By: #### C BC1 #### [facility] [address] [place], [place] [address] Hematocrit (Bld) [Volume fraction] 28.2 % Low 40.1-51.0 [facility] Comment on above: Performed By: #### C BC1 #### [facility] [address] [place], [place] [address] Hemoglobin (Bld) [Mass/Vol] 8.5 g/dL Low 13.7-17.5 [facility] Comment on above: Performed By: #### C BC1 #### [facility] [address] [place], [place] [address] MCH (RBC) [Entitic mass] 27.5 pg Normal 25.7-32.2 [facility] Comment on above: Performed By: #### C BC1 #### [facility] [address] [place] [address] MCHC (RBC) [Mass/Vol] 30.1 % Low 32.3-36.5 [facility] Comment on above: Performed By: #### C BC1 #### [facility] [address] [place] [address] MCV (RBC) [Entitic vol] 91.3 fL Normal 83.2-95.6 [facility] Comment on above: Performed By: #### C BC1 #### [facility] [address] [place] [address] Platelet mean volume (Bld) [Entitic vol] 9.4 fL Normal 8.7-12.0 [facility] Comment on above: Performed By: #### C BC1 #### [facility] [address] [place] [address] Platelets (Bld) [#/Vol] 584 thou/cmm High 141-365 [facility] Comment on above: Performed By: #### C BC1 #### [facility] [address] [place], [place] [address] RBC (Bld) [#/Vol] 3.09 mil/cmm Low 4.63-6.08 [facility] Comment on above: Performed By: #### C BC1 #### [facility] [address] [place] [id number] RDW SD 47.9 fl High 36.1-45.8 [facility] Comment on above: Performed By: #### Lamont BC1 #### [facility] [address] [place] [address] WBC (Bld) [#/Vol] 7.55 thou/cmm Normal 4.23-9.07 [facility] Comment on above: Performed By: #### C BC1 #### [facility] [address] [place], [place] [address] NURSING PROGon 06-23-2019 NURSING PROG HNO ID: [id number] Author: Fide (Rn) MATT Vega Service: Nursing Author Type: Registered Nurse Type: Nursing Progress Note Filed: 06/23/2019 5:14 PM Note Text: Nursing Progress Note Patient Name: Tori Cantor Patient Location: [place] [id number] Daily Note: Hypoglycemia protocol followed- Dr. Del Real notified of low blood sugar. Orders to hold insulin with dinner and start D5 0.45% NS at midnight while NPO prior to surgery. This note was completed by: Fide Vega RN Normal [facility] PROGRESSon 06-23-2019 PROGRESS HNO ID: [id number] Author: Clinton Banda Service: Hospital Medicine Author Type: Physician Type: Progress Notes Filed: 06/23/2019 1:46 PM Note Text: DEPARTMENT OF HOSPITAL MEDICINE HISTORY AND PHYSICAL EXAM SERVICE DATE: 06/23/2019 SERVICE TIME: 1:30 PM Primary Care Physician: Elizbaeth Nelson, DO NIGHT AND WEEKEND COVERAGE: From 7am - 7pm, please call Sound After 7pm, please call cross cover pager #[phone] Subjective CHIEF COMPLAINT: Consult DM1, HTN, Gastro HPI: This is a 44 year old male who comes from FACILITY with hx of Ankle fracture. It was broken awhile ago, but due to noncompliance and some what the patient admits were stupid decisions it has not healed and has gotten worse. After the fracture (he does not recall how it happened, but drugs may have been involved) he refused admissions for antibiotics, removed his own splint, and these made it worse. Recently he tried to put weight on the ankle, even though he was told not to, and the compound fracture acutely worsened. At this point ortho feels the leg cannot be saved. We are consulted for medical management of his comorbidities. BP is stable. 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 - Pancreatitis 08/2014 - Tobacco abuse 05/27/2019 - Trimalleolar fracture of left ankle PAST SURGICAL HISTORY Procedure Laterality Date - IR VASCULAR ACCESS TEAM PICC INSERTION RADIO 06/17/2019 - NONE Social history is accurate FAMILY HISTORY Problem Relation Age of Onset - Hypertension Mother - Diabetes Mother - Stroke Mother - Heart Mother CHF - Cataract Mother - Hypertension Father - COPD Father - Emphysema Father OA Family History is accurate Social History Tobacco Use - Smoking status: Current Every Day Smoker Packs/day: 1.00 Types: Cigarettes - Smokeless tobacco: Never Used Substance Use Topics - Alcohol use: Yes Comment: socially - Drug use: Yes Types: Cocaine, Amphetamines Comment: hist of cocaine and marajuana use, fentanyl HOME MEDICATIONS: Prior to Admission Medications Prescriptions Last Dose Informant Patient Reported? Taking? DULoxetine (CYMBALTA) 20 mg capsule Yes Yes Sig: Take 20 mg by mouth once daily. For anxiety. DULoxetine (CYMBALTA) 30 mg capsule Yes Yes Sig: Take 30 mg by mouth once daily. For depression. acetaminophen (TYLENOL) 325 mg tablet Yes Yes Sig: Take 650 mg by mouth every 6 hours as needed (mild pain). acetaminophen (TYLENOL) 325 mg tablet Yes Yes Sig: Take 650 mg by mouth every 6 hours as needed for Fever. acetaminophen (TYLENOL) 325 mg tablet Yes Yes Sig: Take 650 mg by mouth every 6 hours as needed (mild pain). bisacodyl (DULCOLAX) 10 mg supp Yes Yes Si mg by RECTAL route once daily as needed for Constipation. bisacodyl EC (DULCOLAX, BISACODYL,) 5 mg EC tablet Yes Yes Sig: Take 5 mg by mouth once daily as needed for Constipation. ceFAZolin (ANCEF) 2 gram/100 mL in dextrose (iso-osmotic) Unknown at Unknown time No No Sig: Inject 100 mL intravenously every 8 hours. cyclobenzaprine (FLEXERIL) 5 mg tablet Yes Yes Sig: Take 5 mg by mouth every 8 hours as needed for Muscle Spasm. doxycycline monohydrate 100 mg tablet Yes Yes Sig: Take 100 mg by mouth twice daily. For 14 days. Course of therapy initiated on 06/09/2019. Scheduled to end on 06/23/2019. enoxaparin (LOVENOX) 40 mg/0.4 mL syrg Yes Yes Sig: Inject 40 mg subcutaneously every 24 hours. ibuprofen (MOTRIN) 400 mg tablet Yes Yes Sig: Take 400 mg by mouth every 6 hours as needed. insulin NPH (HumuLIN N,NovoLIN N) pen Yes Yes Sig: Inject 20 Units subcutaneously twice daily. insulin glargine (LANTUS SOLOSTAR U-100 INSULIN) 100 unit/mL (3 mL) inpn Yes Yes Sig: Inject 24 Units subcutaneously twice daily. insulin lispro (HUMALOG KWIKPEN INSULIN) 100 unit/mL inpn Yes Yes Sig: Inject as per sliding scale subcutaneously before meals. If blood sugars are: 100-150 inject 2 unit(s). 151-200 inject 4 unit(s). 201-250 inject 6 unit(s). 251-300 inject 8 unit(s). 301-350 inject 10 unit(s). 351-400 inject 12 unit(s). 401-450 inject 14 unit(s). For blood glucose <70 or >500 call MD. insulin lispro (HUMALOG KWIKPEN INSULIN) 100 unit/mL inpn Yes Yes Sig: Inject as per sliding scale subcutaneously before meals. If blood sugars are: 201-225 inject 4 unit(s). 226-250 inject 5 unit(s). 251-275 inject 6 unit(s). 276-300 inject 7 unit(s). 301-325 inject 8 unit(s). 326-350 inject 9 unit(s). 351-999 inject 10 unit(s) and notify provider. levoFLOXacin (LEVAQUIN) 750 mg tablet Yes Yes Sig: Take 750 mg by mouth once daily. For 14 days. Course of therapy initiated on 06/09/2019. Scheduled to end on 06/23/2019. lisinopril (ZESTRIL, PRINIVIL) 10 mg tablet Yes Yes Sig: Take 10 mg by mouth once daily. magnesium hydroxide (MOM) 400 mg/5 mL suspension Yes Yes Sig: Take 30 mL by mouth once daily as needed for Constipation. naloxone 4 mg/actuation nasal spray (NARCAN) Yes Yes Sig: Use 1 spray alternating nostrils every 2 minutes as needed for anxiety. ondansetron (ZOFRAN) 4 mg tablet Yes Yes Sig: Take 4 mg by mouth every 6 hours as needed (nausea). oxyCODONE IR (ROXICODONE) 5 mg immediate release tablet Yes Yes Sig: Take 5 mg by mouth every 4 hours as needed for Pain. For 5 days. Course initiated on 06/21/2019. Scheduled to end on 06/26/2019. oxyCODONE IR (ROXICODONE) 5 mg immediate release tablet Yes Yes Sig: Take 5 mg by mouth every 6 hours as needed (severe pain). For 5 days. Course initiated on 06/21/2019. Scheduled to end on 06/26/2019. oxyCODONE-acetaminophen (PERCOCET) 5-325 mg tablet Yes Yes Sig: Take 1 tablet by mouth every 6 hours as needed for Pain. pantoprazole DR (PROTONIX) 40 mg tablet OTHER Yes Yes Sig: Take 40 mg by mouth once daily. polyethylene glycol 3350 (MIRALAX) 17 gram/dose powder No Yes Sig: Take 17 g by mouth twice daily. pregabalin (LYRICA) 100 mg capsule Yes Yes Sig: Take 100 mg by mouth three times daily. senna (SENNA) 8.6 mg tab Yes Yes Sig: Take 17.2 mg by mouth twice daily. Facility-Administered Medications: None ALLERGIES No Known Allergies REVIEW OF SYSTEM: All ROS are reviewed, all other systems reviewed and see HPI for pertinent positives and negatives Objective PHYSICAL EXAM: BP 128/86 Pulse 86 Temp (Src) 98.6 (Oral) Resp 16 Ht 5' 9 (1.75m) Wt 155 lb (70.3kg) SpO2 96% BMI 22.88 kg/(m2). O2 Therapy: Room Air GENERAL: Alert, no distress, cooperative, NAD SKIN: Warm, dry intact, no open lesions, no rashs HEAD/SINUSES: Normocephalic, atraumatic, oral mucosa moist EYES: PERRLA, EOMI NECK: No jugulovenous distention, Supple, no adenopathy LUNGS: Lungs clear to auscultation, no wheezes, ronchi, or rales CARDIAC: RRR, Normal S1 and S2; no rubs, murmurs, or gallops ABDOMEN: Abdomen soft, non-tender, BS normal, No masses or organomegaly EXTREMITIES: Extremities normal, no deformities, edema, clubbing or skin discoloration. FOOT: Left foot is bandaged and in a retraction device. Open wounds, no bone noticed. NEURO: Sensation grossly intact, Cranial nerves II-XII intact, moves all 4 extremities, speech was clear and coherent - no chronic chen DATA: Diagnostic tests reviewed for today's visit: Most recent labs and imaging results. CBC: Recent Labs 06/23/19229 WBC 7.55 RBC 3.09* HB 8.5* HCT 28.2* PLT 584* MCV 91.3 MCH 27.5 MPV 9.4 RDW 14.4 Coags: No results for input(s): INR, APTT in the last 24 hours. Invalid input(s): PT BMP: Recent Labs 06/23/190 NA 138 K 3.9 CHLOR 102 CO2 33* BUN 9 CREAT 0.61* GLUC 108* CMP: Recent Labs 06/23/19229 NA 138 K 3.9 CHLOR 102 CO2 33* BUN 9 CREAT 0.61* GLUC 108* CA 9.0 ANION 7* Cardiac Enzymes: No results for input(s): CK, MB, CKMB, TROPT in the last 24 hours. Liver Function, Amylase, Lipase: No results for input(s): TPROT, ALB, ALT, AST, ALKPHOS, TBILI, AMYLASE, LIPASE, LACTATE in the last 24 hours. MG/PHOS: No results for input(s): MG, P in the last 24 hours. Renal Panel: Recent Labs 06/23/190 CREAT 0.61* BUN 9 GLUC 108* CA 9.0 CHLOR 102 K 3.9 CO2 33* NA 138 Heme: No results for input(s): RETICP, ABSRETIC, LD, VIKRAM, FE, TIBC, TRANSFERSAT in the last 24 hours. Assessment/Plan Active Problems: Closed trimalleolar fracture of left ankle POA: Yes Assessment AND Plan: per primary Brittle Type 1 Diabetic- Consult Endo for this Chronic Pain- Will likely need adjusted after amputation HTN- Stable on this regimen Noncompliance Polysubstance Abuse Will follow peripherally tomorrow. Will see him after surgery and see if he has further needs. VTE Prophylaxis: Lovenox 40mg Sub Q Daily Disposition: Pending workup Plan of care discussed with: Patient Code status: Full SIGNATURE: Clinton Banda MD PATIENT NAME: Tori Cantor DATE: June 23, 2019 TIME: 1:30 PM PAGER/CONTACT #: Sena Garcia [facility] PROGRESS HNO ID: [id number] Author: Donnell Garcia Service: Infectious Disease Author Type: Physician Type: Progress Notes Filed: 06/23/2019 3:47 PM Note Text: INFECTIOUS DISEASE PROGRESS NOTE Patient Name: Tori Cantor Date: 06/23/2019 ASSESSMENT: 1. Left ankle fracture/ dislocation with large area of necrotic skin, fascia and muscle s/p I and D on 06/15/2019 (MSSA) - now with exposed necrotic tibia 2. Left distal tibial osteomyelitis due to MSSA 3. High grade MSSA bacteremia?cleared 06/12, negative JOANNA 4. Type 1 diabetes- uncontrolled ? RECOMMENDATIONS: Continue Ancef BKA tomorrow Follow Clinically Initial ATB stop date 07/24/19 INTERVAL HISTORY: Afebrile. Pain controlled. Plan for OR tomorrow for left BKA Tolerating Ancef. No n/v/d/f/c MEDICATIONS: reviewed. Current Facility-Administered Medications Medication Dose Route Frequency - pregabalin 100 mg cap(s) (LYRICA) 100 mg ORAL TID - lisinopril 10 mg tab(s) (ZESTRIL, PRINIVIL) 10 mg ORAL DAILY - ceFAZolin iv piggyback 2 g in D5W (iso-osmotic) 100 mL (ANCEF) 2 g INTRAVENOUS q 8 H - pantoprazole DR 40 mg tab(s) (PROTONIX) 40 mg ORAL DAILY - DULoxetine 20 mg cap(s) (CYMBALTA) 20 mg ORAL DAILY - cyclobenzaprine 5 mg tab(s) (FLEXERIL) 5 mg ORAL q 8 H PRN - NaCl 0.9% 2-10 mL 2-10 mL INTRAVENOUS q 12 H - docusate sodium 100 mg cap(s) (COLACE) 100 mg ORAL BID - morphine 2 mg injection 2 mg INTRAVENOUS q 2 H PRN - oxyCODONE IR 5-10 mg tab(s) (ROXICODONE) 5-10 mg ORAL q 4 H PRN - acetaminophen 650 mg tab(s) (TYLENOL) 650 mg ORAL q 6 H PRN - dextrose 40 % 15 g 15 g ORAL PRN Or - glucagon 1 mg injection (GLUCAGEN) 1 mg INTRAMUSCULAR PRN Or - dextrose 50 % 12.5 g injection 12.5 g INTRAVENOUS PRN - insulin lispro 8 Units pen (rapid acting) (HumaLOG KWIKPEN) 8 Units SUBCUTANEOUS w MEALS - insulin lispro 0-5 Units pen (rapid acting) (HumaLOG KWIKPEN) 0-5 Units SUBCUTANEOUS w MEALS - insulin NPH human 20 Units injection pen (intermediate acting) (NovoLIN N, HumuLIN N) 20 Units SUBCUTANEOUS BID PHYSICAL EXAM: Vital signs: BP 128/86 Pulse 86 Temp 37 ?C (98.6 ?F) (Oral) Resp 16 Ht 175.3 cm (5' 9) Wt 70.3 kg (155 lb) SpO2 96% BMI 22.89 kg/m? Temp (24hrs), Av.9 ?C (98.4 ?F), Min:36.5 ?C (97.7 ?F), Max:37.1 ?C (98.8 ?F) GEN: Alert, pleasant, NAD HEENT: PERRL, moist oral mucosa, neck supple PULM: CTA bilateral, no rhonchi/wheezes. CV: RRR GI: soft, non distended, non tender, BSx4 : no chen, no CVAT EXT: left leg external fixation, dressing in place SKIN: no rash NEURO: no focal deficits, Alert and oriented x3 LINES: PICC site clean Lab data: reviewed Recent Labs 06/23/19 0230 06/22/19 0640 06/21/19 1818 06/21/19 1330 WBC 7.55 8.38 -- 9.23* HB 8.5* 8.7* -- 9.2* PLT 584* 616* -- 640* INR -- -- 1.01 -- NA 138 138 -- 132* K 3.9 4.1 -- 4.7 CO2 33* 32 -- 31 BUN 9 9 -- 13 CREAT 0.61* 0.61* -- 0.60* Microbiology data: reviewed Imaging data: reviewed Cielo MORALES [facility] Answering Service: [phone] June 23, 2019 1:16 PM Seen and examined independently. Agree fully w above notes as documented by the RETAINING ROOM CUTTER. Donnell Garcia MD 06/23/2019 3:47 PM Normal [facility] PROGRESS HNO ID: [id number] Author: Jayy Vogel Service: Orthopaedic Surgery Author Type: Physician Type: Progress Notes Filed: 06/23/2019 12:31 PM Note Text: ORTHOPAEDIC SURGERY DAILY PROGRESS NOTE Patient Name: Tori Cantor Date of Evaluation: 06/23/2019 Admission Date: 06/21/2019 Time of Evaluation: 6:07 AM ORTHO STAFF: Patient seen and examined. Agree with resident assessment and plan noted below. Appreciate multi-service input regarding his care. Reviewed surgical plan in detail with patient and answered all questions. Reviewed expected post-operative course, including potential risks and benefits of the procedure. Answered all questions. Plan of Care performed with nursing staff. Jayy Vogel MD ASSESSMENT: 44 year old male with L bimalleolar ankle fracture/dislocation s/p external fixation and multiple IANDDs for infected fracture blisters; now with redislocation of the tibiotalar joint and worsening fracture displacement PLAN: -Pain Control -Non Weight Bearing on Left lower extremity. History of difficult complete compliance with this WB status. -DVT Prophylaxis: SCDs; Hold for surgery -BKA vs AKA 06/24/[address] Vogel. -NPO/IVF -Appreciate IM/ID recs -Ice/elevate extremity INTERVAL HPI: Patient monitored, no new events overnight. Complains of some pain in L leg. Is prepared for his amputation tomorrow. OBJECTIVE: BP 130/90 Pulse 84 Temp 36.5 ?C (97.7 ?F) (Oral) Resp 17 Ht 175.3 cm (5' 9) Wt 70.3 kg (155 lb) SpO2 96% BMI 22.89 kg/m? Intake/Output Summary (Last 24 hours) 06/22 2300 - 06/23 0659 In: - Out: 1400 [Urine:1400] Exam: General: NAD, AAOx3 Extremities: Left Lower Extremity: Dressing clean, dry and intact. Foot warm with brisk capillary refill Compartments soft, compressible. Tolerates passive stretch of digits. Labs: WBC (thou/cmm) Date Value 06/23/2019 7.55 RBC (mil/cmm) Date Value 06/23/2019 3.09 (L) Hemoglobin (g/dL) Date Value 11/11/2016 14.2 HGB (g/dL) Date Value 06/23/2019 8.5 (L) Hematocrit (%) Date Value 06/23/2019 28.2 (L) MCV (fl) Date Value 06/23/2019 91.3 MCH (pg) Date Value 06/23/2019 27.5 MCHC (%) Date Value 06/23/2019 30.1 (L) RDW-CV (%) Date Value 11/11/2016 13.7 Platelet Count (thou/cmm) Date Value 06/23/2019 584 (H) MPV (fl) Date Value 06/23/2019 9.4 Glucose (mg/dL) Date Value 06/23/2019 108 (H) BUN (mg/dL) Date Value 06/23/2019 9 Creatinine (mg/dL) Date Value 06/23/2019 0.61 (L) Sodium (mEq/L) Date Value 06/23/2019 138 Potassium (mEq/L) Date Value 06/23/2019 3.9 Chloride (mEq/L) Date Value 06/23/2019 102 CO2 (mEq/L) Date Value 06/23/2019 33 (H) Protein, Total (g/dL) Date Value 06/20/2019 7.4 Albumin (g/dL) Date Value 06/20/2019 1.9 (L) Calcium (mg/dL) Date Value 06/23/2019 9.0 Alkaline Phosphatase (U/L) Date Value 06/20/2019 117 Bilirubin, Total (mg/dL) Date Value 06/20/2019 0.3 AST (U/L) Date Value 06/20/2019 16 ALT (U/L) Date Value 06/20/2019 10 (L) Imaging: Reviewed. See consultation note. Pranav Reynolds MD 06/23/2019 6:06 AM Normal [facility] Basic Panelon 06-22-2019 Creatinine [Mass/Vol] 0.61 mg/dL Low 0.67-1.17 [facility] Comment on above: Performed By: #### U DRG2 #### [facility] [address] [place], [place] [address] Anion gap [Moles/Vol] 7 mmol/L Low 8-16 [facility] Comment on above: Performed By: #### U DRG2 #### [facility] [address] [place], [place] [address] CO2 [Moles/Vol] 32 mmol/L Normal 21-32 [facility] Comment on above: Performed By: #### U DRG2 #### [facility] [address] [place], [place] [address] Glucose [Mass/Vol] 55 mg/dL Low 70-99 [facility] Comment on above: Performed By: #### U DRG2 #### [facility] [address] [place], [place] [address] Urea nitrogen [Mass/Vol] 9 mg/dL Normal 7-18 [facility] Comment on above: Performed By: #### U DRG2 #### [facility] [address] [place], [place] [address] Calcium [Mass/Vol] 9.2 mg/dL Normal 8.5-10.1 [facility] Comment on above: Performed By: #### U DRG2 #### [facility] [address] [place], [place] [address] Chloride [Moles/Vol] 103 mmol/L Normal 98-107 [facility] Comment on above: Performed By: #### U DRG2 #### [facility] [address] [place], [place] [address] Potassium [Moles/Vol] 4.1 mmol/L Normal 3.5-5.1 [facility] Comment on above: Performed By: #### U DRG2 #### [facility] [address] [place], [place] [address] Sodium [Moles/Vol] 138 mmol/L Normal 136-145 [facility] Comment on above: Performed By: #### U DRG2 #### [facility] [address] [place], [place] [address] CASE MGT INIT ASSESon 2018 CASE MGT INLEISA QUEZADA HNO ID: [id number] Author: Muna (Rn) MATT Cordero Service: Care Management Author Type: Registered Nurse Type: Care Mgt Initial Assessment Filed: 06/22/2019 2:07 PM Note Text: CARE MANAGEMENT: ASSESSMENT AND DISCHARGE PLAN SERVICE DATE: 06/22/2019 SERVICE TIME: 1400 PRIMARY CARE PHYSICIAN: Elizabeth Nelson DO ADMISSION STATUS: Inpatient Needs Prior to Discharge: Facility or Agency Choices;Discharge Transportation MEDICAL: 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 Yes Is This a Planned Readmission? No: New symptoms of underlying disease Followed Up with Appointment Prior to Admission: Patient scheduled, but readmitted prior Where Did the Patient Come From? [facility] Intervention Taken to Avoid Future Readmission? To be determined after surgery Advance Directive: Current Advance Directive: None Lens Blocker Attempted to Assist with AD Completion: Yes Action: Education Provided Health Literacy: 1. How often do you need to have someone help you when you read instructions, pamphlets, or other written material from your doctor or pharmacy? Never - 1 2. How confident are you filling out medical forms by yourself? Extremely - 1 If Patient scores > 3 on either question, the following interventions were put into place: Patient did not score > 3 FUNCTIONAL AND COGNITIVE/BEHAVIORAL PRIOR TO ADMISSION: Baseline Mental Status: Alert AND Oriented, Person, Place , Time and Situation Functional Status: Independent Does Patient Currently Receive Any Community Services or Home Care? None Equipment Prior to Admission: None Has the Patient Been in a Halfway Facility in the Past 30 days? Yes. Where and Dates: [facility] SOCIAL: Living Arrangement: Home Lives With: Father Financial Resources: Disabled Primary Contact: Extended Emergency Contact Information Primary Emergency Contact: DARWIN CANTOR Relation: Father Secondary Emergency Contact: Ingris Flowers Relation: Relative Supportive: Yes Other Important Patient Contacts: None Caregiver Assessment: Caregiver is ready, willing and able to meet the patient's needs as recommended by the inter-professional team? No Caregiver Needed Patient's transition needs and plan for meeting these needs: acute rehab vs snf Does the patient have an acute stroke diagnosis, or has the patient had a stroke during this admission? No Medication Adherence: I am convinced of the importance of my prescription medication: Agree completely - 0 I worry that my prescription medication will do more harm than good to me Disagree completely - 0 I feel financially burdened by my [id number] expenses for my prescription medication: Disagree completely - 0 Patient is categorized as low risk < 2 Are you interested in bedside delivery of your medications? No Is the Patient Psychosocially Complex? No ASSESSMENT AND PLAN: Medical Needs: 2 or more chronic diseases Psychosocial Needs: None FREEDOM OF CHOICE EXPLAINED: No - Unable to complete with this assessment - revisit POTENTIAL TRANSITION PLANS Rehab Facility Halfway Facility/Intermediate Care Facility Met with patient at bedside. Discharged from hospital on Thursday to [facility]. Plan now is for amputation left leg on Thursday Previously lived at home, father lives with him who requires care/Aunt assists with care. Will follow and assist with transitional needs acute rehab vs snf. SIGNATURE: Muna Cordero RN PATIENT NAME: Tori Cantor DATE: June 22, 2019 TIME: 2:01 PM PAGER/CONTACT #: [phone] [facility] CONSULTon 06-22-2019 CONSULT HNO ID: [id number] Author: Akash Tillman MD Service: Infectious Disease Author Type: Physician Type: Consults Filed: 06/22/2019 7:16 PM Note Text: CONSULT: INFECTIOUS DISEASE SERVICE SERVICE DATE: 06/22/2019 SERVICE TIME: 1:57 PM REASON FOR CONSULT: LLE Infection, ATB Management REQUESTING PHYSICIAN: PRIMARY CARE PHYSICIAN: Elizabeth Nelson DO Subjective Mr. Cantor is a 44 year old male PMHX as noted below who is known to our service for treatment of left leg necrotizing fascitis, left distal tibial osteomyelitis due to MSSA, and high grade MSSA bacteremia (neg JOANNA). He underwent I AND D with external fixation placement 06/15/19. He was on IV Ancef with treatment until 07/24/2019. He was seen by Orthopedics in the outpatient setting and there was noted to be exposed necrotic tibia. Orthopedics is recommending AKA vs BKA. He is afebrile. WBC 8.4. No new culture data. Ancef resumed. ID consulted for antimicrobial management. PAST MEDICAL HISTORY Diagnosis Date - Diabetes ([facility]) - DKA (diabetic ketoacidosis) ([facility]) 08/2014 - Hyperglycemia 05/27/2019 - Hypertension - IVDU (intravenous drug user) 05/27/2019 - Lactose intolerance 07/30/2016 - Left ankle joint deformity 05/27/2019 - Pancreatitis 08/2014 - Tobacco abuse 05/27/2019 - Trimalleolar fracture of left ankle PAST SURGICAL HISTORY Procedure Laterality Date - IR VASCULAR ACCESS TEAM PICC INSERTION RADIO 06/17/2019 - NONE FAMILY HISTORY Problem Relation Age of Onset - Hypertension Mother - Diabetes Mother - Stroke Mother - Heart Mother CHF - Cataract Mother - Hypertension Father - COPD Father - Emphysema Father Social History Tobacco Use - Smoking status: Current Every Day Smoker Packs/day: 1.00 Types: Cigarettes - Smokeless tobacco: Never Used Substance Use Topics - Alcohol use: Yes Comment: socially - Drug use: Yes Types: Cocaine, Amphetamines Comment: hist of cocaine and marajuana use, fentanyl acetaminophen (TYLENOL) 325 mg tablet, Take 650 mg by mouth every 6 hours as needed (mild pain)., Disp: , Rfl: acetaminophen (TYLENOL) 325 mg tablet, Take 650 mg by mouth every 6 hours as needed for Fever., Disp: , Rfl: acetaminophen (TYLENOL) 325 mg tablet, Take 650 mg by mouth every 6 hours as needed (mild pain)., Disp: , Rfl: bisacodyl (DULCOLAX) 10 mg supp, 10 mg by RECTAL route once daily as needed for Constipation., Disp: , Rfl: bisacodyl EC (DULCOLAX, BISACODYL,) 5 mg EC tablet, Take 5 mg by mouth once daily as needed for Constipation., Disp: , Rfl: cyclobenzaprine (FLEXERIL) 5 mg tablet, Take 5 mg by mouth every 8 hours as needed for Muscle Spasm., Disp: , Rfl: levoFLOXacin (LEVAQUIN) 750 mg tablet, Take 750 mg by mouth once daily. For 14 days. Course of therapy initiated on 06/09/2019. Scheduled to end on 06/23/2019., Disp: , Rfl: lisinopril (ZESTRIL, PRINIVIL) 10 mg tablet, Take 10 mg by mouth once daily., Disp: , Rfl: pregabalin (LYRICA) 100 mg capsule, Take 100 mg by mouth three times daily., Disp: , Rfl: magnesium hydroxide (MOM) 400 mg/5 mL suspension, Take 30 mL by mouth once daily as needed for Constipation., Disp: , Rfl: naloxone 4 mg/actuation nasal spray (NARCAN), Use 1 spray alternating nostrils every 2 minutes as needed for anxiety., Disp: , Rfl: ondansetron (ZOFRAN) 4 mg tablet, Take 4 mg by mouth every 6 hours as needed (nausea)., Disp: , Rfl: oxyCODONE IR (ROXICODONE) 5 mg immediate release tablet, Take 5 mg by mouth every 4 hours as needed for Pain. For 5 days. Course initiated on 06/21/2019. Scheduled to end on 06/26/2019., Disp: , Rfl: oxyCODONE IR (ROXICODONE) 5 mg immediate release tablet, Take 5 mg by mouth every 6 hours as needed (severe pain). For 5 days. Course initiated on 06/21/2019. Scheduled to end on 06/26/2019., Disp: , Rfl: oxyCODONE-acetaminophen (PERCOCET) 5-325 mg tablet, Take 1 tablet by mouth every 6 hours as needed for Pain., Disp: , Rfl: senna (SENNA) 8.6 mg tab, Take 17.2 mg by mouth twice daily., Disp: , Rfl: DULoxetine (CYMBALTA) 30 mg capsule, Take 30 mg by mouth once daily. For depression., Disp: , Rfl: doxycycline monohydrate 100 mg tablet, Take 100 mg by mouth twice daily. For 14 days. Course of therapy initiated on 06/09/2019. Scheduled to end on 06/23/2019., Disp: , Rfl: DULoxetine (CYMBALTA) 20 mg capsule, Take 20 mg by mouth once daily. For anxiety., Disp: , Rfl: insulin lispro (HUMALOG KWIKPEN INSULIN) 100 unit/mL inpn, Inject as per sliding scale subcutaneously before meals. If blood sugars are: 100-150 inject 2 unit(s). 151-200 inject 4 unit(s). 201-250 inject 6 unit(s). 251-300 inject 8 unit(s). 301-350 inject 10 unit(s). 351-400 inject 12 unit(s). 401-450 inject 14 unit(s). For blood glucose <70 or >500 call MD., Disp: , Rfl: insulin lispro (HUMALOG KWIKPEN INSULIN) 100 unit/mL inpn, Inject as per sliding scale subcutaneously before meals. If blood sugars are: 201-225 inject 4 unit(s). 226-250 inject 5 unit(s). 251-275 inject 6 unit(s). 276-300 inject 7 unit(s). 301-325 inject 8 unit(s). 326-350 inject 9 unit(s). 351-999 inject 10 unit(s) and notify provider., Disp: , Rfl: ibuprofen (MOTRIN) 400 mg tablet, Take 400 mg by mouth every 6 hours as needed., Disp: , Rfl: insulin NPH (HumuLIN N,NovoLIN N) pen, Inject 20 Units subcutaneously twice daily., Disp: , Rfl: insulin glargine (LANTUS SOLOSTAR U-100 INSULIN) 100 unit/mL (3 mL) inpn, Inject 24 Units subcutaneously twice daily., Disp: , Rfl: polyethylene glycol 3350 (MIRALAX) 17 gram/dose powder, Take 17 g by mouth twice daily., Disp: , Rfl: enoxaparin (LOVENOX) 40 mg/0.4 mL syrg, Inject 40 mg subcutaneously every 24 hours., Disp: , Rfl: pantoprazole DR (PROTONIX) 40 mg tablet, Take 40 mg by mouth once daily. , Disp: , Rfl: , 05/26/2019 ceFAZolin (ANCEF) 2 gram/100 mL in dextrose (iso-osmotic), Inject 100 mL intravenously every 8 hours., Disp: 9000 mL, Rfl: 1, Unknown at Unknown time Current Facility-Administered Medications Medication Dose Route Frequency - pregabalin 100 mg cap(s) (LYRICA) 100 mg ORAL TID - lisinopril 10 mg tab(s) (ZESTRIL, PRINIVIL) 10 mg ORAL DAILY - ceFAZolin iv piggyback 2 g in D5W (iso-osmotic) 100 mL (ANCEF) 2 g INTRAVENOUS q 8 H - insulin glargine 24 Units pen (long acting) (LANTUS SOLOSTAR, BASAGLAR KWIKPEN) 24 Units SUBCUTANEOUS BID - insulin NPH human 20 Units injection pen (intermediate acting) (NovoLIN N, HumuLIN N) 20 Units SUBCUTANEOUS BID - pantoprazole DR 40 mg tab(s) (PROTONIX) 40 mg ORAL DAILY - DULoxetine 20 mg cap(s) (CYMBALTA) 20 mg ORAL DAILY - cyclobenzaprine 5 mg tab(s) (FLEXERIL) 5 mg ORAL q 8 H PRN - NaCl 0.9% 2-10 mL 2-10 mL INTRAVENOUS q 12 H - docusate sodium 100 mg cap(s) (COLACE) 100 mg ORAL BID - morphine 2 mg injection 2 mg INTRAVENOUS q 2 H PRN - oxyCODONE IR 5-10 mg tab(s) (ROXICODONE) 5-10 mg ORAL q 4 H PRN - acetaminophen 650 mg tab(s) (TYLENOL) 650 mg ORAL q 6 H PRN - dextrose 40 % 15 g 15 g ORAL PRN Or - glucagon 1 mg injection (GLUCAGEN) 1 mg INTRAMUSCULAR PRN Or - dextrose 50 % 12.5 g injection 12.5 g INTRAVENOUS PRN - insulin lispro 0-5 Units pen (rapid acting) (HumaLOG KWIKPEN) 0-5 Units SUBCUTANEOUS w MEALS AND HS Allergies As of Date: 06/21/2019 (No Known Allergies) Fully Assessed 06/21/2019 COMPLETE REVIEW OF SYSTEMS: 10 point ROS complete, negative unless otherwise stated in HPI Objective PHYSICAL EXAM: Temp (24hrs), Av.7 ?C (98 ?F), Min:36.5 ?C (97.7 ?F), Max:36.7 ?C (98.1 ?F) GEN: Alert, pleasant, NAD HEENT: PERRL, moist oral mucosa, neck supple PULM: CTA bilateral, no rhonchi/wheezes. CV: RRR GI: soft, non distended, non tender, BSx4 : no chen, no CVAT EXT: left leg external fixation, dressing in place SKIN: no rash NEURO: no focal deficits, Alert and oriented x3 LINES: PICC site clean Body mass index is 22.89 kg/m?. DATA: Diagnostic tests reviewed for today's visit: Recent Labs 06/22/19 0640 06/21/19 1818 06/21/19 1330 06/20/19 0252 WBC 8.38 -- 9.23* -- HB 8.7* -- 9.2* -- PLT 616* -- 640* -- INR -- 1.01 -- -- NA 138 -- 132* 132* K 4.1 -- 4.7 4.9 CO2 32 -- 31 31 BUN 9 -- 13 17 CREAT 0.61* -- 0.60* 0.58* AST -- -- -- 16 ALT -- -- -- 10* TBILI -- -- -- 0.3 ALKPHOS -- -- -- 117 MICROBIOLOGY: reviewed IMAGES: reviewed Impression/Recommendation s 1. Left ankle fracture/ dislocation with large area of necrotic skin, fascia and muscle s/p I and D on 06/15/2019 (MSSA) - now with exposed necrotic tibia 2. Left distal tibial osteomyelitis due to MSSA 3. High grade MSSA bacteremia?cleared 06/12, negative JOANNA 4. Type 1 diabetes- uncontrolled RECOMMENDATIONS: Continue Ancef Await Surgical decision Follow Clinically SIGNATURE: Cielo Ramirez APRN.RETAINING ROOM CUTTER PATIENT NAME: Tori Cantor DATE: June 22, 2019 TIME: 1:57 PM PAGER: [phone] Seen and examined independently. Agree fully w above notes as documented by the RETAINING ROOM CUTTER. Akash Tillman MD [phone] 06/22/2019 7:16 PM Normal [facility] Hemogramon 06-22-2019 Erythrocyte distribution width (RBC) [Ratio] 14.4 % Normal 11.6-14.4 [facility] Comment on above: Performed By: #### U DRG2 #### [address] [address] Hematocrit (Bld) [Volume fraction] 27.8 % Low 40.1-51.0 [facility] Comment on above: Performed By: #### U DRG2 #### [address] [address] Hemoglobin (Bld) [Mass/Vol] 8.7 g/dL Low 13.7-17.5 [facility] Comment on above: Performed By: #### U DRG2 #### [address] [address] MCH (RBC) [Entitic mass] 28.4 pg Normal 25.7-32.2 [facility] Comment on above: Performed By: #### U DRG2 #### [facility] [address] [address] MCHC (RBC) [Mass/Vol] 31.3 % Low 32.3-36.5 [facility] Comment on above: Performed By: #### U DRG2 #### [facility] [address] [address] MCV (RBC) [Entitic vol] 90.8 fL Normal 83.2-95.6 [facility] Comment on above: Performed By: #### U DRG2 #### [facility] [address] [address] Platelet mean volume (Bld) [Entitic vol] 9.4 fL Normal 8.7-12.0 [facility] Comment on above: Performed By: #### U DRG2 #### [facility] [address] [address] Platelets (Bld) [#/Vol] 616 thou/cmm High 141-365 [facility] Comment on above: Performed By: #### U DRG2 #### [facility] [address] [address] RBC (Bld) [#/Vol] 3.06 mil/cmm Low 4.63-6.08 [facility] Comment on above: Performed By: #### U DRG2 #### [place] [address] RDW SD 47.5 fl High 36.1-45.8 [facility] Comment on above: Performed By: #### U DRG2 #### [facility] [address] [id number] WBC (Bld) [#/Vol] 8.38 thou/cmm Normal 4.23-9.07 [facility] Comment on above: Performed By: #### U DRG2 #### [facility] [address] [address] PROGRESSon 06-22-2019 PROGRESS HNO ID: [id number] Author: Gareth Uriarte Service: Orthopaedic Surgery Author Type: Physician Type: Progress Notes Filed: 06/22/2019 8:16 AM Note Text: Assessment seated patient to provide a second opinion regarding the next step in treatment of his redislocated an open left ankle fracture dislocation. The patient has a long history of noncompliance. He recently had an external fixator placed. He developed an infection which required a subsequent debridement. This was performed by myself. Intraoperatively there was a necrotizing type infection involving the soft tissues as well as the bone distally. There are 3 large areas of exposed tibia on the medial aspect of the leg which had a wound VAC placed at the time of surgery. He clinically improved while in the hospital and was subsequently discharged. Within 24 hours he returned after he redislocated his ankle in the external fixator. He now has exposed tibia. This is through the opening from the surgical debridement. This is a very complicated situation. He has uncontrolled blood sugars. He has a necrotizing type infection involving the soft tissues. He also had an infection in his bone. To salvage the leg, the infection would have to be eradicated, the bone fixed and healed, and soft tissue coverage obtained. I think the success rate of all these is slim. In addition to this, if his infection worsens, an emergent amputation may be necessary. In light of all of this, I would recommend an amputation of his left lower extremity. I had a long discussion with the patient regarding this. In addition to helping treat the infection and the fracture, this would also allow him to get on his feet quickest. I answered the patient's questions. He expressed understanding of the entire situation and was in agreement with the amputation. [facility] PROGRESS HNO ID: [id number] Author: Bryson Bocanegra Service: Orthopaedic Surgery Author Type: Resident Type: Progress Notes Filed: 06/22/2019 6:17 AM Note Text: Orthopaedic Surgery Plan for OR changed to 06/24/2019. Dr. Uriarte to provide second opinion regarding BKA vs. AKA. Ok for carb controlled diet. NPO/IV fluids after midnight 06/24/2019 Bryson Bocanegra 06/22/2019 0617 [facility] PROGRESS HNO ID: [id number] Author: Velvet Phelps Service: Orthopaedic Surgery Author Type: Resident Type: Progress Notes Filed: 06/22/2019 6:21 AM Note Text: ORTHOPAEDIC SURGERY DAILY PROGRESS NOTE Patient Name: Tori Cantor Date of Evaluation: 06/22/2019 Admission Date: 06/21/2019 Time of Evaluation: 6:15 AM ASSESSMENT: 44 year old male with L bimalleolar ankle fracture/dislocation s/p external fixation and multiple IANDDs for infected fracture blisters; now with redislocation of the tibiotalar joint and worsening fracture displacement PLAN: -Pain Control -Non Weight Bearing on Left lower extremity. History of difficult complete compliance with this WB status. -DVT Prophylaxis: SCDs; Hold for surgery -Recommendation for BKA vs AKA today. However patient wishes to get a second opinion. Therefore we will hold off on surgery until 06/24/19. -Appreciate IM recs -Ice/elevate extremity INTERVAL HPI: Patient monitored, no new events overnight. Issues noted overnight re: bedside commode wishes. Well Controlled pain. Denies nausea/vomitting. OBJECTIVE: BP 133/81 Pulse 81 Temp 36.7 ?C (98.1 ?F) (Temporal) Resp 16 Ht 175.3 cm (5' 9) Wt 70.3 kg (155 lb) SpO2 100% BMI 22.89 kg/m? Intake/Output Summary (Last 24 hours) No intake/output data recorded. Exam: General: NAD, AAOx3 Extremities: Left Lower Extremity: Dressing clean, dry and intact. Foot warm with brisk capillary refill Compartments soft, compressible. Tolerates passive stretch of digits. Labs: CBC: WBC 9.23 06/21/2019 Hemoglobin 9.2 06/21/2019 Hematocrit 29.5 06/21/2019 Platelet Count 640 06/21/2019 BMP: Sodium 132 06/21/2019 Potassium 4.7 06/21/2019 Chloride 97 06/21/2019 CO2 31 06/21/2019 BUN 13 06/21/2019 Creatinine 0.60 06/21/2019 Glucose 249 06/21/2019 COAGS: APTT 27.6 06/09/2019 PT INR 1.01 06/21/2019 SED RATE/CRP: Sed Rate, Westergren 84 06/08/2019 CRP 23.80 06/08/2019 Imaging: Reviewed. See consultation note. Velvet Phelps MD PGY-V, Orthopaedic Surgery [facility] Phone #: [phone] Please page [phone] after 5pm or if you need a prompt response 06/22/2019 6:15 AM Normal [facility] Type and Screenon 06-22-2019 ABO group Nom (Bld) O Normal [facility] Comment on above: Performed By: #### C BC1 #### [place] [address] Comment See Below [facility] Comment on above: Result Comment: Scre en &/or Xmatch expires in 3 days at 12 midnight. Redraw patient at that time. Performed By: #### C BC1 #### [place] [address] RH Type Positive Normal [facility] Comment on above: Performed By: #### C BC1 #### [place] [address] Basic Panelon 06-21-2019 Creatinine [Mass/Vol] 0.60 mg/dL Low 0.67-1.17 [facility] Comment on above: Performed By: #### U DRG2 #### [place] [address] Anion gap [Moles/Vol] 9 mmol/L Normal 8-16 [facility] Comment on above: Performed By: #### U DRG2 #### [place] [address] CO2 [Moles/Vol] 31 mmol/L Normal 21-32 [facility] Comment on above: Performed By: #### U DRG2 #### [place] [address] Glucose [Mass/Vol] 249 mg/dL High 70-99 [facility] Comment on above: Performed By: #### U DRG2 #### [place] [address] Urea nitrogen [Mass/Vol] 13 mg/dL Normal 7-18 [facility] Comment on above: Performed By: #### U DRG2 #### [place] [address] Calcium [Mass/Vol] 9.3 mg/dL Normal 8.5-10.1 [facility] Comment on above: Performed By: #### U DRG2 #### [facility] [address] [address] Chloride [Moles/Vol] 97 mmol/L Low 98-107 [facility] Comment on above: Performed By: #### U DRG2 #### [facility] [address] [address] Potassium [Moles/Vol] 4.7 mmol/L Normal 3.5-5.1 [facility] Comment on above: Performed By: #### U DRG2 #### [facility] [address] [address] Sodium [Moles/Vol] 132 mmol/L Low 136-145 [facility] Comment on above: Performed By: #### U DRG2 #### [facility] [address] [address] ED NOTEon 06-21-2019 ED NOTE HNO ID: [id number] Author: Jaswinder (Rn) MATT Fabian Service: ? Author Type: Registered Nurse Type: ED Notes Filed: 06/21/2019 1:31 PM Note Text: Xray paged for Normal [facility] ED NOTE HNO ID: [id number] Author: Charlotte AaronRn) MATT Mcgovern Service: Emergency Medicine Author Type: Registered Nurse Type: ED Notes Filed: 06/21/2019 12:47 PM Note Text: Pt placed on environmental monitoring specialist. No ectopy noted. Alarms on and reviewed. Pt also attached to continuous pulse ox and disposable BP cuff. Rhythm SR noted Normal [facility] ED NOTE HNO ID: [id number] Author: Charlotte AaronRn) MATT Mcgovern Service: Emergency Medicine Author Type: Registered Nurse Type: ED Notes Filed: 06/21/2019 12:45 PM Note Text: + scrotal swelling Normal [facility] ED NOTE HNO ID: [id number] Author: James AaronMedic) Leroy Campbell Service: ? Author Type: Scientific Investigator and Shot Polisher And Inspector Type: ED Notes Filed: 06/21/2019 12:26 PM Note Text: Bed: 17-ED Expected date: 06/21/19 Expected time: Means of arrival: [facility] Comments: [facility] ankle Normal [facility] ED PROV NOTEon 06-21-2019 ED PROV NOTE HNO ID: [id number] Author: AMADEO Trevino Pa-C Service: Emergency Medicine Author Type: Physician Innovation Manager Type: ED Provider Notes Filed: 06/21/2019 3:28 PM Note Text: ----- Attestation signed by Ramesh Garcia DO at 06/25/2019 10:48 AM Signature: Ramesh Garcia DO Date: 06/25/2019 Time: 10:48 AM ----- ED Provider Note Patient Name: Tori Cantor SERVICE DATE: 06/21/19 History Patient presents with: Post Op: Pt from rehab facility. Pt states he had surgery here last thursday and has pins and traction device in place, pt was discharged late yesterday. Pt states he was sent here for bone protruding and increased pain. + swelling, + traction device, + pain, + warmth., + weak pedal pulse palpable 44-year-old male presents to the ED with left lower extremity problem. Patient was diagnosed with a left trimalleolar ankle fracture about 3 weeks ago, was admitted to the hospital from 06/09 until yesterday, final diagnosis LLE cellulitis/abscess and S. Aureus bacteremia in the setting of a left trimalleolar ankle fracture. Patient's had IANDD by orthopedics, had an extra fixator placed and has been nonweightbearing. Discharged home with a PICC line in the right upper extremity, to [facility]. Plan for IV antibiotics and by mouth pain medication per the patient. States that this morning when the nursing staff went to change the patient's dressing my bone was sticking out. States that dressing was changed yesterday prior to discharge and it did not look like that. States that he has not done any weightbearing. He reports increased pain but states he hasn't gotten any pain medicine since yesterday evening. He states that otherwise the wounds look the same as needed yesterday. Unsure if he has had any fevers, denies any chills. Lower extremity sensation has been minimal over the past couple of weeks. 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 - Pancreatitis 08/2014 - Tobacco abuse 05/27/2019 - Trimalleolar fracture of left ankle PAST SURGICAL HISTORY Procedure Laterality Date - IR VASCULAR ACCESS TEAM PICC INSERTION RADIO 06/17/2019 - NONE FAMILY HISTORY Problem Relation Age of Onset - Hypertension Mother - Diabetes Mother - Stroke Mother - Heart Mother CHF - Cataract Mother - Hypertension Father - COPD Father - Emphysema Father Social History Tobacco Use - Smoking status: Current Every Day Smoker Packs/day: 1.00 Types: Cigarettes - Smokeless tobacco: Never Used Substance and Sexual Activity - Alcohol use: Yes Comment: socially - Drug use: Yes Types: Cocaine, Amphetamines Comment: hist of cocaine and marajuana use, fentanyl - Sexual activity: Not on file ALLERGIES No Known Allergies Review of Systems All other systems reviewed and are negative. Physical Exam BP 154/104 Pulse 88 Temp (Src) 98.1 (Oral) Resp 18 Ht 5' 9 (1.75m) Wt 195 lb (88.5kg) SpO2 99% BMI 28.78 kg/(m2). O2 Therapy: Room Air Physical Exam Constitutional: Appearance: He is well-developed. HENT: Head: Normocephalic and atraumatic. Eyes: Conjunctiva/sclera: Conjunctivae normal. Neck: Musculoskeletal: Normal range of motion and neck supple. Cardiovascular: Rate and Rhythm: Normal rate and regular rhythm. Heart sounds: Normal heart sounds. Pulmonary: Effort: Pulmonary effort is normal. Breath sounds: Normal breath sounds. Musculoskeletal: Comments: Left?Lower Extremity dressing removed, moderate amount serosang drainage on ABDs, three large wounds to the medial aspect of the leg, tibia protruding through the mis distal wound/medial malleolus. External fixator in place. + foot swelling, NV intact, pedal pulse palpated minimally/diminished. Skin: General: Skin is warm and dry. Neurological: Mental Status: He is alert and oriented to person, place, and time. Psychiatric: Behavior: Behavior normal. Thought Content: Thought content normal. Judgment: Judgment normal. Diagnostic Testing ED Labs Ordered and Reviewed BASIC METABOLIC PANEL (AK,AV,EU,FV,HL,MARIA TERESA,MM,SP) CBC + AUTO DIFF (AK,AV,EU,FV,HL,MARIA TERESA,MM,SP) Procedures ED Course / Clinical Impression Clinical Impressions as of Jun 21 152 Other chronic osteomyelitis of left tibia (HCC) MDM / Disposition / Plan 1344: 44-year-old male with complicated recent past surgical history/medical history significant for left trimalleolar fracture on May 27, status post orthopedic surgery, necrotizing fasciitis, staph aureus bacteremia who was discharged home/to senior living facility yesterday, presents this afternoon with complaints of his bone protruding from one of the wounds. Orthopedics paged. CBC, BMP, x-ray of the ankle, tib-fib obtained, Dilaudid and Zofran ordered for pain. Discussed with Dr. Garcia, he has also interviewed and evaluated the patient and is agreement with the assessment and plan at this time. 1527: Orthopedics has assessed the patient, they will admit the patient to their service, plan for amputation. Patient has remained stable his entire stay in the ED. SIGNATURE: RGOERIO Trevino Pa-C, PA 06/21/19 1528 Ramesh Garcia DO 06/25/19 1048 Normal [facility] HISTORY PHYSICALon HISTORY PHYSICAL HNO ID: [id number] Author: Jayy Vogel Service: Orthopaedic Surgery Author Type: Physician Type: HANDP Filed: 06/22/2019 8:55 AM Note Text: ORTHOPAEDIC SURGERY HANDP Pt: TORI CANTOR Date of Admission: 06/21/2019 ORTHO STAFF: History and physical examination reviewed. Patient seen and examined. Agree with orthopaedic resident assessment and plan. Patient reportedly ambulated on the extremity in fixator and again dislocated the ankle (less than 24 hours after hospital discharge), with bone protrusion through his medial ulcer. At this point his injury is not reconstructable with anticipated continued infectious risk for progression. Recommended below knee amputation, with high risk of above knee amputation considering flap compromise potential. Patient expressed understanding during Plan of Care visit performed with nursing staff. Requested orthopaedic second opinion in addition to psychiatry consult as his current condition is largely secondary to noncompliance in the context of poor physiology (refer to prior documentation). Tentative plan for surgical procedure 06/24/2019. Jayy Vogel MD Chief Complaint: Left ankle deformity s/p external fixation for left ankle fracture HPI: 44 year old male presented to [facility] ED with complaints of deformity of his left ankle s/p external fixation with irrigation and debridement with wound vac placement on 06/10/2019 for a left trimalleolar fracture with cellulitis and a repeat irrigation and debridement with wound vac placement on 06/16/2019. Patient was discharged on 06/20/2019 from [facility] to a nursing facility. Patient was have his wound vac changed by his nurse today when she noticed that there was increased displacement of his tibia through his distal wound. The nurse had the patient transferred to [facility] for evaluation of the new deformity. Patient states that he has been intermittently weight bearing on his LLE because of his his weak RLE and his poor sensation on his LLE. Patient denies any new fevers or chills. He denies any new injuries or falls. He denies any acute increase in pain to his LLE. Patient still has his external fixator in place. 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 - Pancreatitis 08/2014 - Tobacco abuse 05/27/2019 - Trimalleolar fracture of left ankle PAST SURGICAL HISTORY Procedure Laterality Date - IR VASCULAR ACCESS TEAM PICC INSERTION RADIO 06/17/2019 - NONE Allergies: Patient has no known allergies. No current facility-administered medications for this encounter. Current Outpatient Medications Medication Sig - acetaminophen (TYLENOL) 325 mg tablet Take 650 mg by mouth every 6 hours as needed (mild pain). - acetaminophen (TYLENOL) 325 mg tablet Take 650 mg by mouth every 6 hours as needed for Fever. - acetaminophen (TYLENOL) 325 mg tablet Take 650 mg by mouth every 6 hours as needed (mild pain). - bisacodyl (DULCOLAX) 10 mg supp 10 mg by RECTAL route once daily as needed for Constipation. - bisacodyl EC (DULCOLAX, BISACODYL,) 5 mg EC tablet Take 5 mg by mouth once daily as needed for Constipation. - cyclobenzaprine (FLEXERIL) 5 mg tablet Take 5 mg by mouth every 8 hours as needed for Muscle Spasm. - levoFLOXacin (LEVAQUIN) 750 mg tablet Take 750 mg by mouth once daily. For 14 days. Course of therapy initiated on 06/09/2019. Scheduled to end on 06/23/2019. - lisinopril (ZESTRIL, PRINIVIL) 10 mg tablet Take 10 mg by mouth once daily. - pregabalin (LYRICA) 100 mg capsule Take 100 mg by mouth three times daily. - magnesium hydroxide (MOM) 400 mg/5 mL suspension Take 30 mL by mouth once daily as needed for Constipation. - naloxone 4 mg/actuation nasal spray (NARCAN) Use 1 spray alternating nostrils every 2 minutes as needed for anxiety. - ondansetron (ZOFRAN) 4 mg tablet Take 4 mg by mouth every 6 hours as needed (nausea). - oxyCODONE IR (ROXICODONE) 5 mg immediate release tablet Take 5 mg by mouth every 4 hours as needed for Pain. For 5 days. Course initiated on 06/21/2019. Scheduled to end on 06/26/2019. - oxyCODONE IR (ROXICODONE) 5 mg immediate release tablet Take 5 mg by mouth every 6 hours as needed (severe pain). For 5 days. Course initiated on 06/21/2019. Scheduled to end on 06/26/2019. - oxyCODONE-acetaminophen (PERCOCET) 5-325 mg tablet Take 1 tablet by mouth every 6 hours as needed for Pain. - senna (SENNA) 8.6 mg tab Take 17.2 mg by mouth twice daily. - DULoxetine (CYMBALTA) 30 mg capsule Take 30 mg by mouth once daily. For depression. - doxycycline monohydrate 100 mg tablet Take 100 mg by mouth twice daily. For 14 days. Course of therapy initiated on 06/09/2019. Scheduled to end on 06/23/2019. - DULoxetine (CYMBALTA) 20 mg capsule Take 20 mg by mouth once daily. For anxiety. - insulin lispro (HUMALOG KWIKPEN INSULIN) 100 unit/mL inpn Inject as per sliding scale subcutaneously before meals. If blood sugars are: 100-150 inject 2 unit(s). 151-200 inject 4 unit(s). 201-250 inject 6 unit(s). 251-300 inject 8 unit(s). 301-350 inject 10 unit(s). 351-400 inject 12 unit(s). 401-450 inject 14 unit(s). For blood glucose <70 or >500 call MD. - insulin lispro (HUMALOG KWIKPEN INSULIN) 100 unit/mL inpn Inject as per sliding scale subcutaneously before meals. If blood sugars are: 201-225 inject 4 unit(s). 226-250 inject 5 unit(s). 251-275 inject 6 unit(s). 276-300 inject 7 unit(s). 301-325 inject 8 unit(s). 326-350 inject 9 unit(s). 351-999 inject 10 unit(s) and notify provider. - ibuprofen (MOTRIN) 400 mg tablet Take 400 mg by mouth every 6 hours as needed. - insulin NPH (HumuLIN N,NovoLIN N) pen Inject 20 Units subcutaneously twice daily. - insulin glargine (LANTUS SOLOSTAR U-100 INSULIN) 100 unit/mL (3 mL) inpn Inject 24 Units subcutaneously twice daily. - polyethylene glycol 3350 (MIRALAX) 17 gram/dose powder Take 17 g by mouth twice daily. - enoxaparin (LOVENOX) 40 mg/0.4 mL syrg Inject 40 mg subcutaneously every 24 hours. - pantoprazole DR (PROTONIX) 40 mg tablet Take 40 mg by mouth once daily. - ceFAZolin (ANCEF) 2 gram/100 mL in dextrose (iso-osmotic) Inject 100 mL intravenously every 8 hours. FAMILY HISTORY Problem Relation Age of Onset - Hypertension Mother - Diabetes Mother - Stroke Mother - Heart Mother CHF - Cataract Mother - Hypertension Father - COPD Father - Emphysema Father Negative for family history of bleeding and clotting disorders. Social History Tobacco Use - Smoking status: Current Every Day Smoker Packs/day: 1.00 Types: Cigarettes - Smokeless tobacco: Never Used Substance Use Topics - Alcohol use: Yes Comment: socially - Drug use: Yes Types: Cocaine, Amphetamines Comment: hist of cocaine and marajuana use, fentanyl ROS: 10 pt ROS neg except in HPI O: Vitals: BP 158/99 Pulse 89 Temp 36.7 ?C (98.1 ?F) (Oral) Resp 13 Ht 175.3 cm (5' 9) Wt 88.5 kg (195 lb) SpO2 99% BMI 28.80 kg/m? Physical exam: General: AANDO x 3; NAD. Cooperative throughout entire interview Head: Atraumatic, Normocephalic Neck: Supple Chest: Unlabored breathing Cardiovascular: +2 bilateral radial pulses Abdomen: Soft, non-tender Pelvis: Deferred Neuro: Decreased in bilateral lower extremities secondary to neuropathy Extremity: Left Lower Extremity: Open [id number] wound over the medial malleolus with the proximal fragment of the medial malleolus protruding through the wound with overlying fibrinous tissues and serous drainage Open [id number] wound over the medial aspect of the left leg with visible tibia with overlying fibrinous tissue and serous drainage Open 4x4cm wound over the proximal aspect of the medial left leg with visible tibia with overlying fibrinous tissue and serous drainage [id number] blister over the medial aspect of the foot with serous drainage External fixator in place Decreased sensation at baseline secondary to diabetes Sluggish capillary refill of phalanges Compartments soft, compressible. Tolerates passive stretch of digits. Secondary Survey: No TTP of any other bony prominences or joints of the upper and lower extremities bilaterally except that described above. Labs: BMP: Sodium 132 06/21/2019 Potassium 4.7 06/21/2019 Chloride 97 06/21/2019 CO2 31 06/21/2019 BUN 13 06/21/2019 Creatinine 0.60 06/21/2019 Glucose 249 06/21/2019 CBC: WBC 9.23 06/21/2019 Hemoglobin 9.2 06/21/2019 Hematocrit 29.5 06/21/2019 Platelet Count 640 06/21/2019 COAGS: APTT 27.6 06/09/2019 PT INR 1.09 06/10/2019 SED RATE/CRP: Sed RateJosé Manuel 84 06/08/2019 CRP 23.80 06/08/2019 Imaging: -XR of the ankle and tib/fib obtained, reviewed and demonstrates a bimalleolar fracture with a transverse medial malleolar fracture which is displaced, a oblique distal fibula fracture which is displaced, the talus is dislocated posterolaterally. External fixator is in place. Compared to prior films, dislocation of talus is new and there is increased displacement of fracture fragments. A/P: 44 year old male with left bimalleolar ankle fracture s/p external fixation and multiple IANDDs with new talus dislocation and worsened fracture displacement - Admit to orthopaedics - Pain control - OR 06/22/2019 for BKA vs. AKA of left lower extremity with possible wound vacuum placement - Ex fix in place, maintain - NWB LLE - NPO/IV fluids after midnight - Hold dvt chemoppx preoperatively - Consent obtained and in chart - Consult medicine - Patient discussed with Dr. Vogel who agrees with assessment and plan Bryson Bocanegra MD Orthopaedic Surgery 06/21/2019 2:47 PM Normal [facility] HOSPon 06-21-2019 HOSP Patient:Nadeem Cantor MRN: Height:5' 9(1.753 m) Weight:155 lb (70.308 kg) Outpatient Medications as of 06/24/19: acetaminophen (TYLENOL) 325 mg tablet acetaminophen (TYLENOL) 325 mg tablet acetaminophen (TYLENOL) 325 mg tablet bisacodyl (DULCOLAX) 10 mg supp bisacodyl EC (DULCOLAX, BISACODYL,) 5 mg EC tablet cyclobenzaprine (FLEXERIL) 5 mg tablet levoFLOXacin (LEVAQUIN) 750 mg tablet lisinopril (ZESTRIL, PRINIVIL) 10 mg tablet pregabalin (LYRICA) 100 mg capsule magnesium hydroxide (MOM) 400 mg/5 mL suspension naloxone 4 mg/actuation nasal spray (NARCAN) ondansetron (ZOFRAN) 4 mg tablet oxyCODONE IR (ROXICODONE) 5 mg immediate release tablet oxyCODONE IR (ROXICODONE) 5 mg immediate release tablet oxyCODONE-acetaminophen (PERCOCET) 5-325 mg tablet senna (SENNA) 8.6 mg tab DULoxetine (CYMBALTA) 30 mg capsule doxycycline monohydrate 100 mg tablet DULoxetine (CYMBALTA) 20 mg capsule insulin lispro (HUMALOG KWIKPEN INSULIN) 100 unit/mL inpn insulin lispro (HUMALOG KWIKPEN INSULIN) 100 unit/mL inpn ibuprofen (MOTRIN) 400 mg tablet insulin NPH (HumuLIN N,NovoLIN N) pen insulin glargine (LANTUS SOLOSTAR U-100 INSULIN) 100 unit/mL (3 mL) inpn polyethylene glycol 3350 (MIRALAX) 17 gram/dose powder ceFAZolin (ANCEF) 2 gram/100 mL in dextrose (iso-osmotic) enoxaparin (LOVENOX) 40 mg/0.[address] (PROTONIX) 40 mg tablet Admission/Clinic Administered Medications as of 06/24/19: insulin lispro 8 Units pen (rapid acting) (HumaLOG KWIKPEN) insulin lispro 0-5 Units pen (rapid acting) (HumaLOG KWIKPEN) insulin NPH human 20 Units injection pen (intermediate acting) (NovoLIN N, HumuLIN N) dextrose 5% in NaCl 0.45% iv infusion pregabalin 100 mg cap(s) (LYRICA) lisinopril 10 mg tab(s) (ZESTRIL, PRINIVIL) ceFAZolin iv piggyback 2 g in D5W (iso-osmotic) 100 mL (ANCEF) pantoprazole DR 40 mg tab(s) (PROTONIX) DULoxetine 20 mg cap(s) (CYMBALTA) cyclobenzaprine 5 mg tab(s) (FLEXERIL) NaCl 0.9% 2-10 mL docusate sodium 100 mg cap(s) (COLACE) morphine 2 mg injection oxyCODONE IR 5-10 mg tab(s) (ROXICODONE) acetaminophen 650 mg tab(s) (TYLENOL) dextrose 40 % 15 g glucagon 1 mg injection (GLUCAGEN) dextrose 50 % 12.5 g injection Problem List: Uncontrolled type 1 diabetes mellitus mild nonproliferative retinopathy without macular edema (HCC) [E10.3293, E10.65] Hypertension [I10] GERD (gastroesophageal reflux disease) [K21.9] Microalbuminuria [R80.9] History of diabetic gastroparesis [Z86.39] 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) [E10.42] Depression with anxiety [F41.8] Charcot's joint of right foot [M14.671] Hyperlipidemia [E78.5] Hep C w/o coma, chronic (HCC) [B18.2] History of drug abuse in remission (HCC) [F19.11] IVDU (intravenous drug user) [F19.90] Tobacco abuse [Z72.0] Left ankle joint deformity [M21.962] Hyperglycemia [R73.9] Nicotine use disorder, F17.2 [F17.200] Closed fracture of left ankle [S82.892A] Sepsis (HCC) [A41.9] Closed trimalleolar fracture of left ankle [S82.852A] Allergies: No Known Allergies Date Verified:06/24/19 Lab Values Lab Value Units Date High Low POTA* 4.2 mEq/L 06/24/2019 5.1 3.5 SAWYER* 27.4 % 06/24/2019 51.0 40.1 Progress Notes (): James Campbell, Medic, Medic 06/21/2019 12:26 PM Signed Bed: 17-ED Expected date: 06/21/19 Expected time: Means of arrival: [facility] Comments: [facility] Charlotte Mcgovern RN, RN 06/21/2019 12:45 PM Signed + scrotal swelling Charlotte Mcgovern RN, RN 06/21/2019 12:47 PM Signed Pt placed on environmental monitoring specialist. No ectopy noted. Alarms on and reviewed. Pt also attached to continuous pulse ox and disposable BP cuff. Rhythm SR noted Jaswinder Fabian, RN, RN 06/21/2019 1:31 PM Signed Xray paged for Romana rUbina PA-C, AMADEO 06/21/2019 3:28 PM Cosign Needed ED Provider Note Patient Name: Tori Cantor SERVICE DATE: 06/21/19 History Patient presents with: Post Op: Pt from rehab facility. Pt states he had surgery here last thursday and has pins and traction device in place, pt was discharged late yesterday. Pt states he was sent here for bone protruding and increased pain. + swelling, + traction device, + pain, + warmth., + weak pedal pulse palpable 44-year-old male presents to the ED with left lower extremity problem. Patient was diagnosed with a left trimalleolar ankle fracture about 3 weeks ago, was admitted to the hospital from 06/09 until yesterday, final diagnosis LLE cellulitis/abscess and S. Aureus bacteremia in the setting of a left trimalleolar ankle fracture. Patient's had IANDD by orthopedics, had an extra fixator placed and has been nonweightbearing. Discharged home with a PICC line in the right upper extremity, to [facility]. Plan for IV antibiotics and by mouth pain medication per the patient. States that this morning when the nursing staff went to change the patient's dressing my bone was sticking out. States that dressing was changed yesterday prior to discharge and it did not look like that. States that he has not done any weightbearing. He reports increased pain but states he hasn't gotten any pain medicine since yesterday evening. He states that otherwise the wounds look the same as needed yesterday. Unsure if he has had any fevers, denies any chills. Lower extremity sensation has been minimal over the past couple of weeks. 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 - Pancreatitis 08/2014 - Tobacco abuse 05/27/2019 - Trimalleolar fracture of left ankle PAST SURGICAL HISTORY Procedure Laterality Date - IR VASCULAR ACCESS TEAM PICC INSERTION RADIO 06/17/2019 - NONE FAMILY HISTORY Problem Relation Age of Onset - Hypertension Mother - Diabetes Mother - Stroke Mother - Heart Mother CHF - Cataract Mother - Hypertension Father - COPD Father - Emphysema Father Social History Tobacco Use - Smoking status: Current Every Day Smoker Packs/day: 1.00 Types: Cigarettes - Smokeless tobacco: Never Used Substance and Sexual Activity - Alcohol use: Yes Comment: socially - Drug use: Yes Types: Cocaine, Amphetamines Comment: hist of cocaine and marajuana use, fentanyl - Sexual activity: Not on file ALLERGIES No Known Allergies Review of Systems All other systems reviewed and are negative. Physical Exam BP 154/104 Pulse 88 Temp (Src) 98.1 (Oral) Resp 18 Ht 5' 9 (1.75m) Wt 195 lb (88.5kg) SpO2 99% BMI 28.78 kg/(m2). O2 Therapy: Room Air Physical Exam Constitutional: Appearance: He is well-developed. HENT: Head: Normocephalic and atraumatic. Eyes: Conjunctiva/sclera: Conjunctivae normal. Neck: Musculoskeletal: Normal range of motion and neck supple. Cardiovascular: Rate and Rhythm: Normal rate and regular rhythm. Heart sounds: Normal heart sounds. Pulmonary: Effort: Pulmonary effort is normal. Breath sounds: Normal breath sounds. Musculoskeletal: Comments: Left?Lower Extremity dressing removed, moderate amount serosang drainage on ABDs, three large wounds to the medial aspect of the leg, tibia protruding through the mis distal wound/medial malleolus. External fixator in place. + foot swelling, NV intact, pedal pulse palpated minimally/diminished. Skin: General: Skin is warm and dry. Neurological: Mental Status: He is alert and oriented to person, place, and time. Psychiatric: Behavior: Behavior normal. Thought Content: Thought content normal. Judgment: Judgment normal. Diagnostic Testing ED Labs Ordered and Reviewed BASIC METABOLIC PANEL (AK,AV,EU,FV,HL,MARIA TERESA,MM,SP) CBC + AUTO DIFF (AK,AV,EU,FV,HL,MARIA TERESA,MM,SP) Procedures ED Course / Clinical Impression Clinical Impressions as of Jun 21 1526 Other chronic osteomyelitis of left tibia (HCC) MDM / Disposition / Plan 1344: 44-year-old male with complicated recent past surgical history/medical history significant for left trimalleolar fracture on May 27, status post orthopedic surgery, necrotizing fasciitis, staph aureus bacteremia who was discharged home/to senior living facility yesterday, presents this afternoon with complaints of his bone protruding from one of the wounds. Orthopedics paged. CBC, BMP, x-ray of the ankle, tib-fib obtained, Dilaudid and Zofran ordered for pain. Discussed with Dr. Garcia, he has also interviewed and evaluated the patient and is agreement with the assessment and plan at this time. 1527: Orthopedics has assessed the patient, they will admit the patient to their service, plan for amputation. Patient has remained stable his entire stay in the ED. SIGNATURE: ROGERIO Trevino Pa-C, PA 06/21/19 1528 Tatum Lynn (Remedial Project Manager) 06/21/2019 2:55 PM Signed MEDICATION HISTORY Patient Name:Liliam Cantor : 1975 Source of history:assisted/Other MAR - [facility] Medication Nonadherence Identified: No barriers noted The above information represents the best possible medication history: Yes Additional comments: -I obtained a medication list from [facility]. -Please note that [facility] has patient on two different Humalog 100u/ml sliding scales and also two different strengths of duloxetine (20mg and 30mg). -I also called to clarify patient's cefazolin dosage at the facility. Rx for cefazolin on facility medication list was written as follows: cefazolin sodium-dextrose solution 2-4gm/100ml. Spoke to ER pharmacist to confirm that this is not an exact dosage. Per facility nurse, they have not started the patient's cefazolin regimen as of yet because they were also attempting to clarify this dose. Facility nurse stated that the order was sent over from [facility] written like this. I reviewed patient's discharge medications from 06/20/2019 and noted that Rx was written for cefazolin 2gm. I updated the [employer] medication list accordingly. Allergies: ALLERGIES No Known Allergies Preferred Pharmacy: N/A Patient is from a nursing facility. [id number] Medication List Adjustments: Medication Regimen Changes: Duloxetine 20mg: Changed from BID to once daily. Medications Added: Duloxetine 30mg capsule: Per facility medication list. Doxycyline monohydrate 100mg tablet: Per facility medication list. Ibuprofen 400mg tablet: Per facility medication list. Lantus 100u/ml solution: Per facility medication list. Acetaminophen 325mg tablet: Per facility medication list. Bisacodyl 10mg suppostory: Per facility medication list. Bisacodyl 5mg DR tablet: Per facility medication list. Levofloxacin 750mg tablet: Per facility medication list. Oxycodone 5mg tablet: Per facility medication list. Percocet 5-325mg tablet: Per facility medication list. Medications Removed: Senna-docusate 8.6-50mg tablet: Not on facility medication list. Short-Term Medications: None. Patient is not currently on cefazolin at facility. Further Clarification Required: None Patient is a 30 day readmission: Yes. Description: Last admtited to [facility] on 06/09/2019 for sepsis. Patient Interested in Bedside Delivery: No. Patient is from a nursing facility. Time Spent Reviewing Patient's Medications: 60 minutes Current [employer] Medications: Prior to Admission medications as of 06/14/19 1003 Medication Sig Last Dose Taking acetaminophen (TYLENOL) 325 mg tablet Take 650 mg by mouth every 6 hours as needed (mild pain). Yes acetaminophen (TYLENOL) 325 mg tablet Take 650 mg by mouth every 6 hours as needed for Fever. Yes acetaminophen (TYLENOL) 325 mg tablet Take 650 mg by mouth every 6 hours as needed (mild pain). Yes bisacodyl (DULCOLAX) 10 mg supp 10 mg by RECTAL route once daily as needed for Constipation. Yes bisacodyl EC (DULCOLAX, BISACODYL,) 5 mg EC tablet Take 5 mg by mouth once daily as needed for Constipation. Yes cyclobenzaprine (FLEXERIL) 5 mg tablet Take 5 mg by mouth every 8 hours as needed for Muscle Spasm. Yes levoFLOXacin (LEVAQUIN) 750 mg tablet Take 750 mg by mouth once daily. For 14 days. Course of therapy initiated on 06/09/2019. Scheduled to end on 06/23/2019. Yes lisinopril (ZESTRIL, PRINIVIL) 10 mg tablet Take 10 mg by mouth once daily. Yes pregabalin (LYRICA) 100 mg capsule Take 100 mg by mouth three times daily. Yes magnesium hydroxide (MOM) 400 mg/5 mL suspension Take 30 mL by mouth once daily as needed for Constipation. Yes naloxone 4 mg/actuation nasal spray (NARCAN) Use 1 spray alternating nostrils every 2 minutes as needed for anxiety. Yes ondansetron (ZOFRAN) 4 mg tablet Take 4 mg by mouth every 6 hours as needed (nausea). Yes oxyCODONE IR (ROXICODONE) 5 mg immediate release tablet Take 5 mg by mouth every 4 hours as needed for Pain. For 5 days. Course initiated on 06/21/2019. Scheduled to end on 06/26/2019. Yes oxyCODONE IR (ROXICODONE) 5 mg immediate release tablet Take 5 mg by mouth every 6 hours as needed (severe pain). For 5 days. Course initiated on 06/21/2019. Scheduled to end on 06/26/2019. Yes oxyCODONE-acetaminophen (PERCOCET) 5-325 mg tablet Take 1 tablet by mouth every 6 hours as needed for Pain. Yes senna (SENNA) 8.6 mg tab Take 17.2 mg by mouth twice daily. Yes DULoxetine (CYMBALTA) 30 mg capsule Take 30 mg by mouth once daily. For depression. Yes doxycycline monohydrate 100 mg tablet Take 100 mg by mouth twice daily. For 14 days. Course of therapy initiated on 06/09/2019. Scheduled to end on 06/23/2019. Yes DULoxetine (CYMBALTA) 20 mg capsule Take 20 mg by mouth once daily. For anxiety. Yes insulin lispro (HUMALOG KWIKPEN INSULIN) 100 unit/mL inpn Inject as per sliding scale subcutaneously before meals. If blood sugars are: 100-150 inject 2 unit(s). 151-200 inject 4 unit(s). 201-250 inject 6 unit(s). 251-300 inject 8 unit(s). 301-350 inject 10 unit(s). 351-400 inject 12 unit(s). 401-450 inject 14 unit(s). For blood glucose <70 or >500 call MD. Yes insulin lispro (HUMALOG KWIKPEN INSULIN) 100 unit/mL inpn Inject as per sliding scale subcutaneously before meals. If blood sugars are: 201-225 inject 4 unit(s). 226-250 inject 5 unit(s). 251-275 inject 6 unit(s). 276-300 inject 7 unit(s). 301-325 inject 8 unit(s). 326-350 inject 9 unit(s). 351-999 inject 10 unit(s) and notify provider. Yes ibuprofen (MOTRIN) 400 mg tablet Take 400 mg by mouth every 6 hours as needed. Yes insulin NPH (HumuLIN N,NovoLIN N) pen Inject 20 Units subcutaneously twice daily. Yes insulin glargine (LANTUS SOLOSTAR U-100 INSULIN) 100 unit/mL (3 mL) inpn Inject 24 Units subcutaneously twice daily. Yes polyethylene glycol 3350 (MIRALAX) 17 gram/dose powder Take 17 g by mouth twice daily. Yes enoxaparin (LOVENOX) 40 mg/0.4 mL syrg Inject 40 mg subcutaneously every [address] (PROTONIX) 40 mg tablet Take 40 mg by mouth once daily. Yes ceFAZolin (ANCEF) 2 gram/100 mL in dextrose (iso-osmotic) Inject 100 mL intravenously every 8 hours. Unknown at Unknown time Tatum Lynn (Remedial Project Manager) Pager: [phone] CC Phone: [phone] June 21, 2019 2:37 PM Jayy Vogel MD 06/22/2019 8:55 AM Signed ORTHOPAEDIC SURGERY HANDP Pt: TORI CANTOR Date of Admission: 06/21/2019 ORTHO STAFF: History and physical examination reviewed. Patient seen and examined. Agree with orthopaedic resident assessment and plan. Patient reportedly ambulated on the extremity in fixator and again dislocated the ankle (less than 24 hours after hospital discharge), with bone protrusion through his medial ulcer. At this point his injury is not reconstructable with anticipated continued infectious risk for progression. Recommended below knee amputation, with high risk of above knee amputation considering flap compromise potential. Patient expressed understanding during Plan of Care visit performed with nursing staff. Requested orthopaedic second opinion in addition to psychiatry consult as his current condition is largely secondary to noncompliance in the context of poor physiology (refer to prior documentation). Tentative plan for surgical procedure 06/24/2019. Jayy Vogel MD Chief Complaint: Left ankle deformity s/p external fixation for left ankle fracture HPI: 44 year old male presented to [facility] ED with complaints of deformity of his left ankle s/p external fixation with irrigation and debridement with wound vac placement on 06/10/2019 for a left trimalleolar fracture with cellulitis and a repeat irrigation and debridement with wound vac placement on 06/16/2019. Patient was discharged on 06/20/2019 from [facility] to a nursing facility. Patient was have his wound vac changed by his nurse today when she noticed that there was increased displacement of his tibia through his distal wound. The nurse had the patient transferred to [facility] for evaluation of the new deformity. Patient states that he has been intermittently weight bearing on his LLE because of his his weak RLE and his poor sensation on his LLE. Patient denies any new fevers or chills. He denies any new injuries or falls. He denies any acute increase in pain to his LLE. Patient still has his external fixator in place. 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 - Pancreatitis 08/2014 - Tobacco abuse 05/27/2019 - Trimalleolar fracture of left ankle PAST SURGICAL HISTORY Procedure Laterality Date - IR VASCULAR ACCESS TEAM PICC INSERTION RADIO 06/17/2019 - NONE Allergies: Patient has no known allergies. No current facility-administered medications for this encounter. Current Outpatient Medications Medication Sig - acetaminophen (TYLENOL) 325 mg tablet Take 650 mg by mouth every 6 hours as needed (mild pain). - acetaminophen (TYLENOL) 325 mg tablet Take 650 mg by mouth every 6 hours as needed for Fever. - acetaminophen (TYLENOL) 325 mg tablet Take 650 mg by mouth every 6 hours as needed (mild pain). - bisacodyl (DULCOLAX) 10 mg supp 10 mg by RECTAL route once daily as needed for Constipation. - bisacodyl EC (DULCOLAX, BISACODYL,) 5 mg EC tablet Take 5 mg by mouth once daily as needed for Constipation. - cyclobenzaprine (FLEXERIL) 5 mg tablet Take 5 mg by mouth every 8 hours as needed for Muscle Spasm. - levoFLOXacin (LEVAQUIN) 750 mg tablet Take 750 mg by mouth once daily. For 14 days. Course of therapy initiated on 06/09/2019. Scheduled to end on 06/23/2019. - lisinopril (ZESTRIL, PRINIVIL) 10 mg tablet Take 10 mg by mouth once daily. - pregabalin (LYRICA) 100 mg capsule Take 100 mg by mouth three times daily. - magnesium hydroxide (MOM) 400 mg/5 mL suspension Take 30 mL by mouth once daily as needed for Constipation. - naloxone 4 mg/actuation nasal spray (NARCAN) Use 1 spray alternating nostrils every 2 minutes as needed for anxiety. - ondansetron (ZOFRAN) 4 mg tablet Take 4 mg by mouth every 6 hours as needed (nausea). - oxyCODONE IR (ROXICODONE) 5 mg immediate release tablet Take 5 mg by mouth every 4 hours as needed for Pain. For 5 days. Course initiated on 06/21/2019. Scheduled to end on 06/26/2019. - oxyCODONE IR (ROXICODONE) 5 mg immediate release tablet Take 5 mg by mouth every 6 hours as needed (severe pain). For 5 days. Course initiated on 06/21/2019. Scheduled to end on 06/26/2019. - oxyCODONE-acetaminophen (PERCOCET) 5-325 mg tablet Take 1 tablet by mouth every 6 hours as needed for Pain. - senna (SENNA) 8.6 mg tab Take 17.2 mg by mouth twice daily. - DULoxetine (CYMBALTA) 30 mg capsule Take 30 mg by mouth once daily. For depression. - doxycycline monohydrate 100 mg tablet Take 100 mg by mouth twice daily. For 14 days. Course of therapy initiated on 06/09/2019. Scheduled to end on 06/23/2019. - DULoxetine (CYMBALTA) 20 mg capsule Take 20 mg by mouth once daily. For anxiety. - insulin lispro (HUMALOG KWIKPEN INSULIN) 100 unit/mL inpn Inject as per sliding scale subcutaneously before meals. If blood sugars are: 100-150 inject 2 unit(s). 151-200 inject 4 unit(s). 201-250 inject 6 unit(s). 251-300 inject 8 unit(s). 301-350 inject 10 unit(s). 351-400 inject 12 unit(s). 401-450 inject 14 unit(s). For blood glucose <70 or >500 call MD. - insulin lispro (HUMALOG KWIKPEN INSULIN) 100 unit/mL inpn Inject as per sliding scale subcutaneously before meals. If blood sugars are: 201-225 inject 4 unit(s). 226-250 inject 5 unit(s). 251-275 inject 6 unit(s). 276-300 inject 7 unit(s). 301-325 inject 8 unit(s). 326-350 inject 9 unit(s). 351-999 inject 10 unit(s) and notify provider. - ibuprofen (MOTRIN) 400 mg tablet Take 400 mg by mouth every 6 hours as needed. - insulin NPH (HumuLIN N,NovoLIN N) pen Inject 20 Units subcutaneously twice daily. - insulin glargine (LANTUS SOLOSTAR U-100 INSULIN) 100 unit/mL (3 mL) inpn Inject 24 Units subcutaneously twice daily. - polyethylene glycol 3350 (MIRALAX) 17 gram/dose powder Take 17 g by mouth twice daily. - enoxaparin (LOVENOX) 40 mg/0.4 mL syrg Inject 40 mg subcutaneously every 24 hours. - pantoprazole DR (PROTONIX) 40 mg tablet Take 40 mg by mouth once daily. - ceFAZolin (ANCEF) 2 gram/100 mL in dextrose (iso-osmotic) Inject 100 mL intravenously every 8 hours. FAMILY HISTORY Problem Relation Age of Onset - Hypertension Mother - Diabetes Mother - Stroke Mother - Heart Mother CHF - Cataract Mother - Hypertension Father - COPD Father - Emphysema Father Negative for family history of bleeding and clotting disorders. Social History Tobacco Use - Smoking status: Current Every Day Smoker Packs/day: 1.00 Types: Cigarettes - Smokeless tobacco: Never Used Substance Use Topics - Alcohol use: Yes Comment: socially - Drug use: Yes Types: Cocaine, Amphetamines Comment: hist of cocaine and marajuana use, fentanyl ROS: 10 pt ROS neg except in HPI O: Vitals: BP 158/99 Pulse 89 Temp 36.7 ?C (98.1 ?F) (Oral) Resp 13 Ht 175.3 cm (5' 9) Wt 88.5 kg (195 lb) SpO2 99% BMI 28.80 kg/m? Physical exam: General: AANDO x 3; NAD. Cooperative throughout entire interview Head: Atraumatic, Normocephalic Neck: Supple Chest: Unlabored breathing Cardiovascular: +2 bilateral radial pulses Abdomen: Soft, non-tender Pelvis: Deferred Neuro: Decreased in bilateral lower extremities secondary to neuropathy Extremity: Left Lower Extremity: Open [id number] wound over the medial malleolus with the proximal fragment of the medial malleolus protruding through the wound with overlying fibrinous tissues and serous drainage Open [id number] wound over the medial aspect of the left leg with visible tibia with overlying fibrinous tissue and serous drainage Open 4x4cm wound over the proximal aspect of the medial left leg with visible tibia with overlying fibrinous tissue and serous drainage [id number] blister over the medial aspect of the foot with serous drainage External fixator in place Decreased sensation at baseline secondary to diabetes Sluggish capillary refill of phalanges Compartments soft, compressible. Tolerates passive stretch of digits. Secondary Survey: No TTP of any other bony prominences or joints of the upper and lower extremities bilaterally except that described above. Labs: BMP: Sodium 132 06/21/2019 Potassium 4.7 06/21/2019 Chloride 97 06/21/2019 CO2 31 06/21/2019 BUN 13 06/21/2019 Creatinine 0.60 06/21/2019 Glucose 249 06/21/2019 CBC: WBC 9.23 06/21/2019 Hemoglobin 9.2 06/21/2019 Hematocrit 29.5 06/21/2019 Platelet Count 640 06/21/2019 COAGS: APTT 27.6 06/09/2019 PT INR 1.09 06/10/2019 SED RATE/CRP: Sed Rate, José Manuel 84 06/08/2019 CRP 23.80 06/08/2019 Imaging: -XR of the ankle and tib/fib obtained, reviewed and demonstrates a bimalleolar fracture with a transverse medial malleolar fracture which is displaced, a oblique distal fibula fracture which is displaced, the talus is dislocated posterolaterally. External fixator is in place. Compared to prior films, dislocation of talus is new and there is increased displacement of fracture fragments. A/P: 44 year old male with left bimalleolar ankle fracture s/p external fixation and multiple IANDDs with new talus dislocation and worsened fracture displacement - Admit to orthopaedics - Pain control - OR 06/22/2019 for BKA vs. AKA of left lower extremity with possible wound vacuum placement - Ex fix in place, maintain - NWB LLE - NPO/IV fluids after midnight - Hold dvt chemoppx preoperatively - Consent obtained and in chart - Consult medicine - Patient discussed with Dr. Vogel who agrees with assessment and plan Bryson Bocanegra MD Orthopaedic Surgery 06/21/2019 2:47 PM Previous Version Carmelita Meehan, RN, RN 06/22/2019 4:49 AM Signed - Nurse paged ortho on-call (#[id number]) and supervisor engraving Alma, notified that the patient is upset by bedrest order and wants to get up to a bedside commode to have bowel movement. - The patient states that he was discharged yesterday, and on his previous admission he was encouraged to use a bedside commode. Nurse attempted to educate pt RE: the change in his safety and mobility needs, but pt grew verbally upset and requested to talk to the supervisor engraving. - Nurse asked the patient if he would like to speak to the ortho resident on-call to explain the orthopedic changes between the current and previous admissions, but the patient declined and stated he would speak to them in the morning before surgery. Velvet Phelps MD 06/22/2019 6:21 AM Signed ORTHOPAEDIC SURGERY DAILY PROGRESS NOTE Patient Name: Tori Cantor Date of Evaluation: 06/22/2019 Admission Date: 06/21/2019 Time of Evaluation: 6:15 AM ASSESSMENT: 44 year old male with L bimalleolar ankle fracture/dislocation s/p external fixation and multiple IANDDs for infected fracture blisters; now with redislocation of the tibiotalar joint and worsening fracture displacement PLAN: -Pain Control -Non Weight Bearing on Left lower extremity. History of difficult complete compliance with this WB status. -DVT Prophylaxis: SCDs; Hold for surgery -Recommendation for BKA vs AKA today. However patient wishes to get a second opinion. Therefore we will hold off on surgery until 06/24/19. -Appreciate IM recs -Ice/elevate extremity INTERVAL HPI: Patient monitored, no new events overnight. Issues noted overnight re: bedside commode wishes. Well Controlled pain. Denies nausea/vomitting. OBJECTIVE: BP 133/81 Pulse 81 Temp 36.7 ?C (98.1 ?F) (Temporal) Resp 16 Ht 175.3 cm (5' 9) Wt 70.3 kg (155 lb) SpO2 100% BMI 22.89 kg/m? Intake/Output Summary (Last 24 hours) No intake/output data recorded. Exam: General: NAD, AAOx3 Extremities: Left Lower Extremity: Dressing clean, dry and intact. Foot warm with brisk capillary refill Compartments soft, compressible. Tolerates passive stretch of digits. Labs: CBC: WBC 9.23 06/21/2019 Hemoglobin 9.2 06/21/2019 Hematocrit 29.5 06/21/2019 Platelet Count 640 06/21/2019 BMP: Sodium 132 06/21/2019 Potassium 4.7 06/21/2019 Chloride 97 06/21/2019 CO2 31 06/21/2019 BUN 13 06/21/2019 Creatinine 0.60 06/21/2019 Glucose 249 06/21/2019 COAGS: APTT 27.6 06/09/2019 PT INR 1.01 06/21/2019 SED RATE/CRP: Sed Rate, Westergren 84 06/08/2019 CRP 23.80 06/08/2019 Imaging: Reviewed. See consultation note. Velvet Phelps MD PGY-V, Orthopaedic Surgery [facility] Phone #: [phone] Please page [phone] after 5pm or if you need a prompt response 06/22/2019 6:15 AM Bryson Bocanegra MD 06/22/2019 6:17 AM Signed Orthopaedic Surgery Plan for OR changed to 06/24/2019. Dr. Uriarte to provide second opinion regarding BKA vs. AKA. Ok for carb controlled diet. NPO/IV fluids after midnight 06/24/2019 Bryson Bocanegra 06/22/2019 0617 Gareth Uriarte MD 06/22/2019 8:16 AM Signed Assessment seated patient to provide a second opinion regarding the next step in treatment of his redislocated an open left ankle fracture dislocation. The patient has a long history of noncompliance. He recently had an external fixator placed. He developed an infection which required a subsequent debridement. This was performed by myself. Intraoperatively there was a necrotizing type infection involving the soft tissues as well as the bone distally. There are 3 large areas of exposed tibia on the medial aspect of the leg which had a wound VAC placed at the time of surgery. He clinically improved while in the hospital and was subsequently discharged. Within 24 hours he returned after he redislocated his ankle in the external fixator. He now has exposed tibia. This is through the opening from the surgical debridement. This is a very complicated situation. He has uncontrolled blood sugars. He has a necrotizing type infection involving the soft tissues. He also had an infection in his bone. To salvage the leg, the infection would have to be eradicated, the bone fixed and healed, and soft tissue coverage obtained. I think the success rate of all these is slim. In addition to this, if his infection worsens, an emergent amputation may be necessary. In light of all of this, I would recommend an amputation of his left lower extremity. I had a long discussion with the patient regarding this. In addition to helping treat the infection and the fracture, this would also allow him to get on his feet quickest. I answered the patient's questions. He expressed understanding of the entire situation and was in agreement with the amputation. Akash Tillman MD, MD 06/22/2019 7:16 PM Signed CONSULT: INFECTIOUS DISEASE SERVICE SERVICE DATE: 06/22/2019 SERVICE TIME: 1:57 PM REASON FOR CONSULT: LLE Infection, ATB Management REQUESTING PHYSICIAN: PRIMARY CARE PHYSICIAN: Elizabeth Nelson DO Subjective Mr. Cantor is a 44 year old male PMHX as noted below who is known to our service for treatment of left leg necrotizing fascitis, left distal tibial osteomyelitis due to MSSA, and high grade MSSA bacteremia (neg JOANNA). He underwent I AND D with external fixation placement 06/15/19. He was on IV Ancef with treatment until 07/24/2019. He was seen by Orthopedics in the outpatient setting and there was noted to be exposed necrotic tibia. Orthopedics is recommending AKA vs BKA. He is afebrile. WBC 8.4. No new culture data. Ancef resumed. ID consulted for antimicrobial management. 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 - Pancreatitis 08/2014 - Tobacco abuse 05/27/2019 - Trimalleolar fracture of left ankle PAST SURGICAL HISTORY Procedure Laterality Date - IR VASCULAR ACCESS TEAM PICC INSERTION RADIO 06/17/2019 - NONE FAMILY HISTORY Problem Relation Age of Onset - Hypertension Mother - Diabetes Mother - Stroke Mother - Heart Mother CHF - Cataract Mother - Hypertension Father - COPD Father - Emphysema Father Social History Tobacco Use - Smoking status: Current Every Day Smoker Packs/day: 1.00 Types: Cigarettes - Smokeless tobacco: Never Used Substance Use Topics - Alcohol use: Yes Comment: socially - Drug use: Yes Types: Cocaine, Amphetamines Comment: hist of cocaine and marajuana use, fentanyl acetaminophen (TYLENOL) 325 mg tablet, Take 650 mg by mouth every 6 hours as needed (mild pain)., Disp: , Rfl: acetaminophen (TYLENOL) 325 mg tablet, Take 650 mg by mouth every 6 hours as needed for Fever., Disp: , Rfl: acetaminophen (TYLENOL) 325 mg tablet, Take 650 mg by mouth every 6 hours as needed (mild pain)., Disp: , Rfl: bisacodyl (DULCOLAX) 10 mg supp, 10 mg by RECTAL route once daily as needed for Constipation., Disp: , Rfl: bisacodyl EC (DULCOLAX, BISACODYL,) 5 mg EC tablet, Take 5 mg by mouth once daily as needed for Constipation., Disp: , Rfl: cyclobenzaprine (FLEXERIL) 5 mg tablet, Take 5 mg by mouth every 8 hours as needed for Muscle Spasm., Disp: , Rfl: levoFLOXacin (LEVAQUIN) 750 mg tablet, Take 750 mg by mouth once daily. For 14 days. Course of therapy initiated on 06/09/2019. Scheduled to end on 06/23/2019., Disp: , Rfl: lisinopril (ZESTRIL, PRINIVIL) 10 mg tablet, Take 10 mg by mouth once daily., Disp: , Rfl: pregabalin (LYRICA) 100 mg capsule, Take 100 mg by mouth three times daily., Disp: , Rfl: magnesium hydroxide (MOM) 400 mg/5 mL suspension, Take 30 mL by mouth once daily as needed for Constipation., Disp: , Rfl: naloxone 4 mg/actuation nasal spray (NARCAN), Use 1 spray alternating nostrils every 2 minutes as needed for anxiety., Disp: , Rfl: ondansetron (ZOFRAN) 4 mg tablet, Take 4 mg by mouth every 6 hours as needed (nausea)., Disp: , Rfl: oxyCODONE IR (ROXICODONE) 5 mg immediate release tablet, Take 5 mg by mouth every 4 hours as needed for Pain. For 5 days. Course initiated on 06/21/2019. Scheduled to end on 06/26/2019., Disp: , Rfl: oxyCODONE IR (ROXICODONE) 5 mg immediate release tablet, Take 5 mg by mouth every 6 hours as needed (severe pain). For 5 days. Course initiated on 06/21/2019. Scheduled to end on 06/26/2019., Disp: , Rfl: oxyCODONE-acetaminophen (PERCOCET) 5-325 mg tablet, Take 1 tablet by mouth every 6 hours as needed for Pain., Disp: , Rfl: senna (SENNA) 8.6 mg tab, Take 17.2 mg by mouth twice daily., Disp: , Rfl: DULoxetine (CYMBALTA) 30 mg capsule, Take 30 mg by mouth once daily. For depression., Disp: , Rfl: doxycycline monohydrate 100 mg tablet, Take 100 mg by mouth twice daily. For 14 days. Course of therapy initiated on 06/09/2019. Scheduled to end on 06/23/2019., Disp: , Rfl: DULoxetine (CYMBALTA) 20 mg capsule, Take 20 mg by mouth once daily. For anxiety., Disp: , Rfl: insulin lispro (HUMALOG KWIKPEN INSULIN) 100 unit/mL inpn, Inject as per sliding scale subcutaneously before meals. If blood sugars are: 100-150 inject 2 unit(s). 151-200 inject 4 unit(s). 201-250 inject 6 unit(s). 251-300 inject 8 unit(s). 301-350 inject 10 unit(s). 351-400 inject 12 unit(s). 401-450 inject 14 unit(s). For blood glucose <70 or >500 call MD., Disp: , Rfl: insulin lispro (HUMALOG KWIKPEN INSULIN) 100 unit/mL inpn, Inject as per sliding scale subcutaneously before meals. If blood sugars are: 201-225 inject 4 unit(s). 226-250 inject 5 unit(s). 251-275 inject 6 unit(s). 276-300 inject 7 unit(s). 301-325 inject 8 unit(s). 326-350 inject 9 unit(s). 351-999 inject 10 unit(s) and notify provider., Disp: , Rfl: ibuprofen (MOTRIN) 400 mg tablet, Take 400 mg by mouth every 6 hours as needed., Disp: , Rfl: insulin NPH (HumuLIN N,NovoLIN N) pen, Inject 20 Units subcutaneously twice daily., Disp: , Rfl: insulin glargine (LANTUS SOLOSTAR U-100 INSULIN) 100 unit/mL (3 mL) inpn, Inject 24 Units subcutaneously twice daily., Disp: , Rfl: polyethylene glycol 3350 (MIRALAX) 17 gram/dose powder, Take 17 g by mouth twice daily., Disp: , Rfl: enoxaparin (LOVENOX) 40 mg/0.4 mL syrg, Inject 40 mg subcutaneously every 24 hours., Disp: , Rfl: pantoprazole DR (PROTONIX) 40 mg tablet, Take 40 mg by mouth once daily. , Disp: , Rfl: , 05/26/2019 ceFAZolin (ANCEF) 2 gram/100 mL in dextrose (iso-osmotic), Inject 100 mL intravenously every 8 hours., Disp: 9000 mL, Rfl: 1, Unknown at Unknown time Current Facility-Administered Medications Medication Dose Route Frequency - pregabalin 100 mg cap(s) (LYRICA) 100 mg ORAL TID - lisinopril 10 mg tab(s) (ZESTRIL, PRINIVIL) 10 mg ORAL DAILY - ceFAZolin iv piggyback 2 g in D5W (iso-osmotic) 100 mL (ANCEF) 2 g INTRAVENOUS q 8 H - insulin glargine 24 Units pen (long acting) (LANTUS SOLOSTAR, BASAGLAR KWIKPEN) 24 Units SUBCUTANEOUS BID - insulin NPH human 20 Units injection pen (intermediate acting) (NovoLIN N, HumuLIN N) 20 Units SUBCUTANEOUS BID - pantoprazole DR 40 mg tab(s) (PROTONIX) 40 mg ORAL DAILY - DULoxetine 20 mg cap(s) (CYMBALTA) 20 mg ORAL DAILY - cyclobenzaprine 5 mg tab(s) (FLEXERIL) 5 mg ORAL q 8 H PRN - NaCl 0.9% 2-10 mL 2-10 mL INTRAVENOUS q 12 H - docusate sodium 100 mg cap(s) (COLACE) 100 mg ORAL BID - morphine 2 mg injection 2 mg INTRAVENOUS q 2 H PRN - oxyCODONE IR 5-10 mg tab(s) (ROXICODONE) 5-10 mg ORAL q 4 H PRN - acetaminophen 650 mg tab(s) (TYLENOL) 650 mg ORAL q 6 H PRN - dextrose 40 % 15 g 15 g ORAL PRN Or - glucagon 1 mg injection (GLUCAGEN) 1 mg INTRAMUSCULAR PRN Or - dextrose 50 % 12.5 g injection 12.5 g INTRAVENOUS PRN - insulin lispro 0-5 Units pen (rapid acting) (HumaLOG KWIKPEN) 0-5 Units SUBCUTANEOUS w MEALS AND HS Allergies As of Date: 06/21/2019 (No Known Allergies) Fully Assessed 06/21/2019 COMPLETE REVIEW OF SYSTEMS: 10 point ROS complete, negative unless otherwise stated in HPI Objective PHYSICAL EXAM: Temp (24hrs), Av.7 ?C (98 ?F), Min:36.5 ?C (97.7 ?F), Max:36.7 ?C (98.1 ?F) GEN: Alert, pleasant, NAD HEENT: PERRL, moist oral mucosa, neck supple PULM: CTA bilateral, no rhonchi/wheezes. CV: RRR GI: soft, non distended, non tender, BSx4 : no chen, no CVAT EXT: left leg external fixation, dressing in place SKIN: no rash NEURO: no focal deficits, Alert and oriented x3 LINES: PICC site clean Body mass index is 22.89 kg/m?. DATA: Diagnostic tests reviewed for today's visit: Recent Labs 06/22/19 0640 06/21/19 1818 06/21/19 1330 06/20/19 0252 WBC 8.38 -- 9.23* -- HB 8.7* -- 9.2* -- PLT 616* -- 640* -- INR -- 1.01 -- -- NA 138 -- 132* 132* K 4.1 -- 4.7 4.9 CO2 32 -- 31 31 BUN 9 -- 13 17 CREAT 0.61* -- 0.60* 0.58* AST -- -- -- 16 ALT -- -- -- 10* TBILI -- -- -- 0.3 ALKPHOS -- -- -- 117 MICROBIOLOGY: reviewed IMAGES: reviewed Impression/Recommendation s 1. Left ankle fracture/ dislocation with large area of necrotic skin, fascia and muscle s/p I and D on 06/15/2019 (MSSA) - now with exposed necrotic tibia 2. Left distal tibial osteomyelitis due to MSSA 3. High grade MSSA bacteremia?cleared 06/12, negative JOANNA 4. Type 1 diabetes- uncontrolled RECOMMENDATIONS: Continue Ancef Await Surgical decision Follow Clinically SIGNATURE: Cielo Ramirez APRN.MARTHA PATIENT NAME: Tori Cantor DATE: June 22, 2019 TIME: 1:57 PM PAGER: [phone] Seen and examined independently. Agree fully w above notes as documented by the RETAINING ROOM CUTTER. 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 Yes Is This a Planned Readmission? No: New symptoms of underlying disease Followed Up with Appointment Prior to Admission: Patient scheduled, but readmitted prior Where Did the Patient Come From? [facility] Intervention Taken to Avoid Future Readmission? To be determined after surgery Advance Directive: Current Advance Directive: None Lens Blocker Attempted to Assist with AD Completion: Yes Action: Education Provided Health Literacy: 1. How often do you need to have someone help you when you read instructions, pamphlets, or other written material from your doctor or pharmacy? Never - 1 2. How confident are you filling out medical forms by yourself? Extremely - 1 If Patient scores > 3 on either question, the following interventions were put into place: Patient did not score > 3 FUNCTIONAL AND COGNITIVE/BEHAVIORAL PRIOR TO ADMISSION: Baseline Mental Status: Alert AND Oriented, Person, Place , Time and Situation Functional Status: Independent Does Patient Currently Receive Any Community Services or Home Care? None Equipment Prior to Admission: None Has the Patient Been in a Halfway Facility in the Past 30 days? Yes. Where and Dates: [facility] SOCIAL: Living Arrangement: Home Lives With: Father Financial Resources: Disabled Primary Contact: Extended Emergency Contact Information Primary Emergency Contact: DARWIN CANTOR Relation: Father Secondary Emergency Contact: Ingris Flowers Relation: Relative Supportive: Yes Other Important Patient Contacts: None Caregiver Assessment: Caregiver is ready, willing and able to meet the patient's needs as recommended by the inter-professional team? No Caregiver Needed Patient's transition needs and plan for meeting these needs: acute rehab vs snf Does the patient have an acute stroke diagnosis, or has the patient had a stroke during this admission? No Medication Adherence: I am convinced of the importance of my prescription medication: Agree completely - 0 I worry that my prescription medication will do more harm than good to me Disagree completely - 0 I feel financially burdened by my [id number] expenses for my prescription medication: Disagree completely - 0 Patient is categorized as low risk < 2 Are you interested in bedside delivery of your medications? No Is the Patient Psychosocially Complex? No ASSESSMENT AND PLAN: Medical Needs: 2 or more chronic diseases Psychosocial Needs: None FREEDOM OF CHOICE EXPLAINED: No - Unable to complete with this assessment - revisit POTENTIAL TRANSITION PLANS Rehab Facility Halfway Facility/Intermediate Care Facility Met with patient at bedside. Discharged from hospital on Thursday to [facility]. Plan now is for amputation left leg on Thursday Previously lived at home, father lives with him who requires care/Aunt assists with care. Will follow and assist with transitional needs acute rehab vs snf. SIGNATURE: Muna Cordero RN PATIENT NAME: Tori Cantor DATE: June 22, 2019 TIME: 2:01 PM PAGER/CONTACT #: [phone] Jayy Vogel MD 06/23/2019 12:31 PM Addendum ORTHOPAEDIC SURGERY DAILY PROGRESS NOTE Patient Name: Tori Cantor Date of Evaluation: 06/23/2019 Admission Date: 06/21/2019 Time of Evaluation: 6:07 AM ORTHO STAFF: Patient seen and examined. Agree with resident assessment and plan noted below. Appreciate multi-service input regarding his care. Reviewed surgical plan in detail with patient and answered all questions. Reviewed expected post-operative course, including potential risks and benefits of the procedure. Answered all questions. Plan of Care performed with nursing staff. Jayy Vogel MD ASSESSMENT: 44 year old male with L bimalleolar ankle fracture/dislocation s/p external fixation and multiple IANDDs for infected fracture blisters; now with redislocation of the tibiotalar joint and worsening fracture displacement PLAN: -Pain Control -Non Weight Bearing on Left lower extremity. History of difficult complete compliance with this WB status. -DVT Prophylaxis: SCDs; Hold for surgery -BKA vs AKA 06/24/[address] Vogel. -NPO/IVF -Appreciate IM/ID recs -Ice/elevate extremity INTERVAL HPI: Patient monitored, no new events overnight. Complains of some pain in L leg. Is prepared for his amputation tomorrow. OBJECTIVE: BP 130/90 Pulse 84 Temp 36.5 ?C (97.7 ?F) (Oral) Resp 17 Ht 175.3 cm (5' 9) Wt 70.3 kg (155 lb) SpO2 96% BMI 22.89 kg/m? Intake/Output Summary (Last 24 hours) 06/22 2300 - 06/23 0659 In: - Out: 1400 [Urine:1400] Exam: General: NAD, AAOx3 Extremities: Left Lower Extremity: Dressing clean, dry and intact. Foot warm with brisk capillary refill Compartments soft, compressible. Tolerates passive stretch of digits. Labs: WBC (thou/cmm) Date Value 06/23/2019 7.55 RBC (mil/cmm) Date Value 06/23/2019 3.09 (L) Hemoglobin (g/dL) Date Value 11/11/2016 14.2 HGB (g/dL) Date Value 06/23/2019 8.5 (L) Hematocrit (%) Date Value 06/23/2019 28.2 (L) MCV (fl) Date Value 06/23/2019 91.3 MCH (pg) Date Value 06/23/2019 27.5 MCHC (%) Date Value 06/23/2019 30.1 (L) RDW-CV (%) Date Value 11/11/2016 13.7 Platelet Count (thou/cmm) Date Value 06/23/2019 584 (H) MPV (fl) Date Value 06/23/2019 9.4 Glucose (mg/dL) Date Value 06/23/2019 108 (H) BUN (mg/dL) Date Value 06/23/2019 9 Creatinine (mg/dL) Date Value 06/23/2019 0.61 (L) Sodium (mEq/L) Date Value 06/23/2019 138 Potassium (mEq/L) Date Value 06/23/2019 3.9 Chloride (mEq/L) Date Value 06/23/2019 102 CO2 (mEq/L) Date Value 06/23/2019 33 (H) Protein, Total (g/dL) Date Value 06/20/2019 7.4 Albumin (g/dL) Date Value 06/20/2019 1.9 (L) Calcium (mg/dL) Date Value 06/23/2019 9.0 Alkaline Phosphatase (U/L) Date Value 06/20/2019 117 Bilirubin, Total (mg/dL) Date Value 06/20/2019 0.3 AST (U/L) Date Value 06/20/2019 16 ALT (U/L) Date Value 06/20/2019 10 (L) Imaging: Reviewed. See consultation note. Pranav Reynolds MD 06/23/2019 6:06 AM Previous Version Lucita Del Real MD 06/23/2019 8:44 PM Signed ENDOCRINOLOGY CONSULT PROGRESS NOTE SERVICE DATE: 06/23/2019 SERVICE TIME: 12:00 PM Subjective INTERVAL HPI: Following for DM type 1. Adm with left ankle fracture after a fall, has left leg infection, cellulitis. Notes and orders reviewed. Was discharged 06/20 on NPH 20 units bid and humalog 10 units qac; Went to OR again on 06/15. readmitted Current Facility-Administered Medications Medication Dose Route Frequency - pregabalin 100 mg cap(s) (LYRICA) 100 mg ORAL TID - lisinopril 10 mg tab(s) (ZESTRIL, PRINIVIL) 10 mg ORAL DAILY - ceFAZolin iv piggyback 2 g in D5W (iso-osmotic) 100 mL (ANCEF) 2 g INTRAVENOUS q 8 H - pantoprazole DR 40 mg tab(s) (PROTONIX) 40 mg ORAL DAILY - DULoxetine 20 mg cap(s) (CYMBALTA) 20 mg ORAL DAILY - cyclobenzaprine 5 mg tab(s) (FLEXERIL) 5 mg ORAL q 8 H PRN - NaCl 0.9% 2-10 mL 2-10 mL INTRAVENOUS q 12 H - docusate sodium 100 mg cap(s) (COLACE) 100 mg ORAL BID - morphine 2 mg injection 2 mg INTRAVENOUS q 2 H PRN - oxyCODONE IR 5-10 mg tab(s) (ROXICODONE) 5-10 mg ORAL q 4 H PRN - acetaminophen 650 mg tab(s) (TYLENOL) 650 mg ORAL q 6 H PRN - dextrose 40 % 15 g 15 g ORAL PRN Or - glucagon 1 mg injection (GLUCAGEN) 1 mg INTRAMUSCULAR PRN Or - dextrose 50 % 12.5 g injection 12.5 g INTRAVENOUS PRN - insulin lispro 8 Units pen (rapid acting) (HumaLOG KWIKPEN) 8 Units SUBCUTANEOUS w MEALS - insulin lispro 0-5 Units pen (rapid acting) (HumaLOG KWIKPEN) 0-5 Units SUBCUTANEOUS w MEALS - insulin NPH human 20 Units injection pen (intermediate acting) (NovoLIN N, HumuLIN N) 20 Units SUBCUTANEOUS BID - [START ON 06/24/2019] dextrose 5% in NaCl 0.45% iv infusion 50 mL/hr INTRAVENOUS CONTINUOUS Objective PHYSICAL EXAM: GENERAL: Alert, no distress, cooperative HEAD/SINUSES: No significant findings OROPHARYNX: Lips, mucosa, and tongue normal. Teeth and gums normal. Oropharynx normal., moist mm NECK: No jugulovenous distention, No carotid bruits, Carotid pulse normal contour, Supple LUNGS: Lungs clear to auscultation, Good diaphragmatic excursion CARDIAC: Normal S1 and S2; no rubs, murmurs, or gallops ABDOMEN: Abdomen soft, non-tender, BS normal, No masses or organomegaly EXTREMITIES: left ankle with external fixation; edematous wrapped BP 137/83 Pulse 85 Temp (Src) 98.6 (Temporal) Resp 16 Ht 5' 9 (1.75m) Wt 155 lb (70.3kg) SpO2 94% BMI 22.88 kg/(m2). O2 Therapy: Room Air DATA: Diagnostic tests reviewed for today's visit: Most recent labs and imaging results. 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 Home Rx is Levemir 25 units bid and Novolog 14 units tid with SSI. Was on 70/30 from 03/09 till 05/18 (while incarcerated) Saw [facility] in [place] in September,; insulin changed to NPH 20 units bid and humalog 10 units qac tid plus correction. ResumeNPH to 20 units bid and humalog 8 units qac tid plus correction; cont rx ? Cellulitis/abscess left ankle, s/p debridement and external fixation of ankle fracture on 06/10. JOANNA normal. Went to OR again on 06/15 for debridement; now with redislocation of the tibiotalar joint and worsening fracture displacement BKA vs AKA 06/24 per Ortho ? IVDU (intravenous drug user) POA: Yes Assessment AND Plan: hx ? Closed fracture of left ankle POA: Yes Assessment AND Plan: trimalleolar, 4 weeks ago after a fall; with external fixator ? Abnormal thyroid function test; TSH 8.2 due to non-thyroidal illness; Low free T3 , free T4 normal at 1.3 and reverse T3 pending ? SIGNATURE: Lucita Del Real MD PATIENT NAME: Tori Cantor DATE: June 23, 2019 TIME: 8:35 PM PAGER: [phone] Darrel Lewis, PhD 06/24/2019 7:18 AM Signed CONFIDENTIAL Psychology Inpatient Consult Name: Tori Cantor : 1975 Date of Service: June 23, 2019 Start Time: 11:10am End Time: 12:10am Procedure Code: 75615 Obtained verbal informed consent for treatment. 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 Reason for Consult: Tori Cantor is a 44 year old White male who was readmitted to [facility] ED on 06/21/19 due to increased displacement of his tibia through his distal wound. He was initially admitted on 06/10/19 due to complaints of deformity of his left ankle and a left trimalleolar fracture with cellulitis; he was treated and discharged to a senior living facility on 06/20/2019. Per his medical record, Tori is now scheduled for a below the knee amputation on 06/24/2019. A psychological consult was requested due to his history of medical noncompliance and resulting worsening physical health. His medical record was reviewed prior to this consultation and will not be reiterated here. General Observations: Tori was interviewed independently for one hour in his hospital room. He was alert and oriented during the course of our interview. His thought processes were generally clear, however, he tended to be highly tangential and was overly detailed in his responses. He spoke at a fast rate and his speech was pressured. There was no evidence of perceptual disturbances or delusional cognitions. Although no formal evaluation of cognition was conducted, he did not demonstrate any overt impairment in cognitive functioning during the interview. He was receptive to the consultation and readily provided details regarding his personal history. He described his mood as depressed due to his worsening health and imminent amputation. He seemed to be able to accurately recall details regarding the events that led up to his his current admission, although his judgement and insight was poor. He denied current suicidal or homicidal ideation, intent, or plan. Consult Content: Upon initiation of the consult, Tori provided a detailed report of the events that led up to his current admission. The details will not be reiterated here as this is documented in his medical record. However, of note, throughout his report, Tori detailed several occasions during which he was not compliant with medical advice. For example, following his discharge from the ED on 05/31/19, while staying in the senior living facility he indicated that he had an incident during which he defecated on himself. He indicated that he attempted to clean himself rather than seeking the support of a nurse, which resulted in him placing weight on his injured leg leading to the further damage. Although it is unclear, it is likely that similar noncompliance resulted in his current readmission. He also detailed an incident during which he asked for support to use the bathroom, but staff recommended that he use a bedpan instead, which resulted in him becoming extremely angry. He seems to lack some insight regarding the impact of these choices and acknowledges little responsibilty. Based on his description of his interactions with health care providers, he seems to be an individual who holds strong opinions and has difficulty understanding the rationale for particular medical recommendations. However, he described having an understanding of the need for an amputation and believes that this is the correct choice based on the information that was provided to him by the treatment team. He described experiencing symptoms of depression due to the imminent loss of his leg. Tori indicated that he has been experiencing chronic depression since the age of 16 or 17. At that time, he experienced a significant amount of trauma and loss including the of his grandmother, the sudden of his uncle to a brain aneurysm (he discovered his body), and the of his close friend to suicide. He indicated that he started to abuse substances around this time and used multiple substances (tobacco, cocaine, methamphetamine, alcohol, marijuana, fentanyl) on a daily basis for approximately 30 years. He indicated that cocaine and other stimulant drugs have been his choice substances. He experienced a number of other significant life events throughout his life that contributed to worsening depression and drug dependence including witnessing friends who have overdosed on drugs, going through a divorce in 2007, and witnessing other violent crimes both in his community and while in halfway. He attempted suicide three times, twice by overdosing on medications and once by attempting to hang himself. It was unclear when these attempts occurred, although he seemed to report that they occurred between 2013-. On one occasion, the suicide attempt resulted in an inpatient hospital stay at [facility]. He indicated that he has been sober for approximately 1 year, although he has had periodic relapses. Although, he current smokes one pack of cigarettes per day. He was arrested for 2 counts of drug possession 1 year ago and was forced to take part in various drug and alcohol programs with mandatory drug screening (inpatient for 1 month, IOP program, outpatient counseling) in order to prevent halfway time. He complied with this for a period of time, however, reported becoming irritated with the programs and chose to spend 6 months in halfway instead. However, he believes the outpatient therapy was beneficial and continues to have a relationship with his counselor. He was released on 05/18/19. He previously spent 120 days in halfway following his divorce for violating a retraining order. Tori indicated that he grew up in a family home with his mother, father, and grandparents. He described his father as strict and his mother as crazy and as having many medical issues. She . He indicated that he has always had a difficult time communicating with his father. Tori reported having significant academic difficulties throughout school. He was one credit short from obtaining his high school diploma. He met his ex- at the age of 17 and they were in 1998. They had two sons, ages 14 and 17. Him and his in 2007 and Tori indicated that he never healed from the separation. He continues to have difficulty with his ex- and is currently attempting to negotiate with her so that he can spend time with his sons. He worked at [employer] from [id number]. The company closed down and he went on to work in various other jobs. However, he believes that symptoms of depression and drug dependence worsened following his divorce, which made it difficult to maintain steady employment. He applied for disability in 2014 and started to receive SSI in 2016. Medical History (Major medical issues; surgeries; chronic pain): PAST MEDICAL HISTORY Diagnosis Date - Diabetes (HCC) - DKA (diabetic ketoacidosis) (HCC) 08/2014 - Hyperglycemia 05/27/2019 - Hypertension - IVDU (intravenous drug user) 05/27/2019 - Lactose intolerance 07/30/2016 - Left ankle joint deformity 05/27/2019 - Pancreatitis 08/2014 - Tobacco abuse 05/27/2019 - Trimalleolar fracture of left ankle Prescription Drugs (record name, purpose, dosage): Current Facility-Administered Medications Medication Dose Route Frequency - insulin lispro 8 Units pen (rapid acting) (HumaLOG KWIKPEN) 8 Units SUBCUTANEOUS w MEALS - insulin lispro 0-5 Units pen (rapid acting) (HumaLOG KWIKPEN) 0-5 Units SUBCUTANEOUS w MEALS - insulin NPH human 20 Units injection pen (intermediate acting) (NovoLIN N, HumuLIN N) 20 Units SUBCUTANEOUS BID - pregabalin 100 mg cap(s) (LYRICA) 100 mg ORAL TID - lisinopril 10 mg tab(s) (ZESTRIL, PRINIVIL) 10 mg ORAL DAILY - ceFAZolin iv piggyback 2 g in D5W (iso-osmotic) 100 mL (ANCEF) 2 g INTRAVENOUS q 8 H - pantoprazole DR 40 mg tab(s) (PROTONIX) 40 mg ORAL DAILY - DULoxetine 20 mg cap(s) (CYMBALTA) 20 mg ORAL DAILY - cyclobenzaprine 5 mg tab(s) (FLEXERIL) 5 mg ORAL q 8 H PRN - NaCl 0.9% 2-10 mL 2-10 mL INTRAVENOUS q 12 H - docusate sodium 100 mg cap(s) (COLACE) 100 mg ORAL BID - morphine 2 mg injection 2 mg INTRAVENOUS q 2 H PRN - oxyCODONE IR 5-10 mg tab(s) (ROXICODONE) 5-10 mg ORAL q 4 H PRN - acetaminophen 650 mg tab(s) (TYLENOL) 650 mg ORAL q 6 H PRN - dextrose 40 % 15 g 15 g ORAL PRN Or - glucagon 1 mg injection (GLUCAGEN) 1 mg INTRAMUSCULAR PRN Or - dextrose 50 % 12.5 g injection 12.5 g INTRAVENOUS PRN Diagnosis: Major depressive disorder, recurrent Polysubstance use disorder, in remission (per patient) 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 He was initially admitted on 06/10/19 due to complaints of deformity of his left ankle and a left trimalleolar fracture with cellulitis; he was treated and discharged to a senior living facility on 06/20/2019. Per his medical record, Tori is now scheduled for a below the knee amputation on 06/24/2019. A psychological consult was requested due to his history of medical noncompliance and resulting worsening physical health. Tori has a complicated history of polysubstance dependence, severe depression, multiple suicide attempts, and significant medial issues. He also reported a lifelong history of significant life stressors and traumas starting at the age of 13, which have contributed to worsening psychiatric illness. He reported current abstinence from illicit substances for the past year, with occasional relapses. Psychoeducation was provided regarding the usefulness of psychotherapy and psychotropic medications for managing symptoms of depression and for helping him to maintain sobriety. He expressed a desire to continue to maintain sobriety, although does not currently believe that additional psychiatric treatment is necessary. I will provide Tori with contact information for our office so that he can seek outpatient psychiatric care in the future if required. He was also encouraged to connect with his previous drug counselor given that they had a positive working relationship. Regarding medical compliance, based on his description of the choices that he has made regarding his health, Tori seems to lack insight regarding the impact of these choices on his worsening health and acknowledges little responsibilty. He likely posses low health literacy and seems to have difficulty understanding the rationale for some recommendations. He also seems to be an individual who is quick to anger when he needs are not met. Despite this, he seemed to understand the severity of his current condition and is agreeable to move forward with the amputation as he believes this is his best option after hearing from multiple members of the treatment team. Psychoeducation was provided to him regarding thepurpose for medical recommendations in supporting his health and he was encouraged to examine how his choices have impacted his current condition. It could be helpful for his treatment team to spend additional time discussing medical recommendations with him to ensure his understanding and to provide a thorough explanation of the rationale (including associated risks) for them. He also seems to be an individual who is likely to attempt to take his care into his own hands, which leads to poor decisions. Psychoeducation was provided regarding the need for him to ask staff for support; it may be helpful for his treatment team to continue to reinforce the importance of seeking help from them during his upcoming recovery. Lastly, a discussion was had regarding noncompliance with the management of diabetes. He expressed a desire to slow the progression of similar difficulties occurring in his right leg. He was reminded that managing diabetes will help with this. It could be helpful for him to receive additional information regarding skills for managing diabetes either while admitted to the hospital or during outpatient care. Thank you for this consult. Please feel free to contact us with any additional questions. Paola Novak PsyD [facility] *This note was transcribed using voice recognition software and minor inaccuracies may be present as a result. *This is a strictly confidential patient medical record. Redisclosure or transfer is expressly prohibited by law. Previous Version Donnell Garcia MD 06/23/2019 3:47 PM Addendum INFECTIOUS DISEASE PROGRESS NOTE Patient Name: Tori Cantor Date: 06/23/2019 ASSESSMENT: 1. Left ankle fracture/ dislocation with large area of necrotic skin, fascia and muscle s/p I and D on 06/15/2019 (MSSA) - now with exposed necrotic tibia 2. Left distal tibial osteomyelitis due to MSSA 3. High grade MSSA bacteremia?cleared 06/12, negative JOANNA 4. Type 1 diabetes- uncontrolled ? RECOMMENDATIONS: Continue Ancef BKA tomorrow Follow Clinically Initial ATB stop date 07/24/19 INTERVAL HISTORY: Afebrile. Pain controlled. Plan for OR tomorrow for left BKA Tolerating Ancef. No n/v/d/f/c MEDICATIONS: reviewed. Current Facility-Administered Medications Medication Dose Route Frequency - pregabalin 100 mg cap(s) (LYRICA) 100 mg ORAL TID - lisinopril 10 mg tab(s) (ZESTRIL, PRINIVIL) 10 mg ORAL DAILY - ceFAZolin iv piggyback 2 g in D5W (iso-osmotic) 100 mL (ANCEF) 2 g INTRAVENOUS q 8 H - pantoprazole DR 40 mg tab(s) (PROTONIX) 40 mg ORAL DAILY - DULoxetine 20 mg cap(s) (CYMBALTA) 20 mg ORAL DAILY - cyclobenzaprine 5 mg tab(s) (FLEXERIL) 5 mg ORAL q 8 H PRN - NaCl 0.9% 2-10 mL 2-10 mL INTRAVENOUS q 12 H - docusate sodium 100 mg cap(s) (COLACE) 100 mg ORAL BID - morphine 2 mg injection 2 mg INTRAVENOUS q 2 H PRN - oxyCODONE IR 5-10 mg tab(s) (ROXICODONE) 5-10 mg ORAL q 4 H PRN - acetaminophen 650 mg tab(s) (TYLENOL) 650 mg ORAL q 6 H PRN - dextrose 40 % 15 g 15 g ORAL PRN Or - glucagon 1 mg injection (GLUCAGEN) 1 mg INTRAMUSCULAR PRN Or - dextrose 50 % 12.5 g injection 12.5 g INTRAVENOUS PRN - insulin lispro 8 Units pen (rapid acting) (HumaLOG KWIKPEN) 8 Units SUBCUTANEOUS w MEALS - insulin lispro 0-5 Units pen (rapid acting) (HumaLOG KWIKPEN) 0-5 Units SUBCUTANEOUS w MEALS - insulin NPH human 20 Units injection pen (intermediate acting) (NovoLIN N, HumuLIN N) 20 Units SUBCUTANEOUS BID PHYSICAL EXAM: Vital signs: BP 128/86 Pulse 86 Temp 37 ?C (98.6 ?F) (Oral) Resp 16 Ht 175.3 cm (5' 9) Wt 70.3 kg (155 lb) SpO2 96% BMI 22.89 kg/m? Temp (24hrs), Av.9 ?C (98.4 ?F), Min:36.5 ?C (97.7 ?F), Max:37.1 ?C (98.8 ?F) GEN: Alert, pleasant, NAD HEENT: PERRL, moist oral mucosa, neck supple PULM: CTA bilateral, no rhonchi/wheezes. CV: RRR GI: soft, non distended, non tender, BSx4 : no chen, no CVAT EXT: left leg external fixation, dressing in place SKIN: no rash NEURO: no focal deficits, Alert and oriented x3 LINES: PICC site clean Lab data: reviewed Recent Labs 06/23/19 0230 06/22/19 0640 06/21/19 1818 06/21/19 1330 WBC 7.55 8.38 -- 9.23* HB 8.5* 8.7* -- 9.2* PLT 584* 616* -- 640* INR -- -- 1.01 -- NA 138 138 -- 132* K 3.9 4.1 -- 4.7 CO2 33* 32 -- 31 BUN 9 9 -- 13 CREAT 0.61* 0.61* -- 0.60* Microbiology data: reviewed Imaging data: reviewed [facility] Answering Service: [phone] June 23, 2019 1:16 PM Seen and examined independently. Agree fully w above notes as documented by the RETAINING ROOM CUTTER. Donnell Garcia MD 06/23/2019 3:47 PM Previous Version Clinton Banda MD 06/23/2019 1:46 PM Signed DEPARTMENT OF HOSPITAL MEDICINE HISTORY AND PHYSICAL EXAM SERVICE DATE: 06/23/2019 SERVICE TIME: 1:30 PM Primary Care Physician: Elizabeth Nelson, DO NIGHT AND WEEKEND COVERAGE: From 7am - 7pm, please call Sound After 7pm, please call cross cover pager #[phone] Subjective CHIEF COMPLAINT: Consult DM1, HTN, Gastro HPI: This is a 44 year old male who comes from FACILITY with hx of Ankle fracture. It was broken awhile ago, but due to noncompliance and some what the patient admits were stupid decisions it has not healed and has gotten worse. After the fracture (he does not recall how it happened, but drugs may have been involved) he refused admissions for antibiotics, removed his own splint, and these made it worse. Recently he tried to put weight on the ankle, even though he was told not to, and the compound fracture acutely worsened. At this point ortho feels the leg cannot be saved. We are consulted for medical management of his comorbidities. BP is stable. 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 - Pancreatitis 08/2014 - Tobacco abuse 05/27/2019 - Trimalleolar fracture of left ankle PAST SURGICAL HISTORY Procedure Laterality Date - IR VASCULAR ACCESS TEAM PICC INSERTION RADIO 06/17/2019 - NONE Social history is accurate FAMILY HISTORY Problem Relation Age of Onset - Hypertension Mother - Diabetes Mother - Stroke Mother - Heart Mother CHF - Cataract Mother - Hypertension Father - COPD Father - Emphysema Father OA Family History is accurate Social History Tobacco Use - Smoking status: Current Every Day Smoker Packs/day: 1.00 Types: Cigarettes - Smokeless tobacco: Never Used Substance Use Topics - Alcohol use: Yes Comment: socially - Drug use: Yes Types: Cocaine, Amphetamines Comment: hist of cocaine and marajuana use, fentanyl HOME MEDICATIONS: Prior to Admission Medications Prescriptions Last Dose Informant Patient Reported? Taking? DULoxetine (CYMBALTA) 20 mg capsule Yes Yes Sig: Take 20 mg by mouth once daily. For anxiety. DULoxetine (CYMBALTA) 30 mg capsule Yes Yes Sig: Take 30 mg by mouth once daily. For depression. acetaminophen (TYLENOL) 325 mg tablet Yes Yes Sig: Take 650 mg by mouth every 6 hours as needed (mild pain). acetaminophen (TYLENOL) 325 mg tablet Yes Yes Sig: Take 650 mg by mouth every 6 hours as needed for Fever. acetaminophen (TYLENOL) 325 mg tablet Yes Yes Sig: Take 650 mg by mouth every 6 hours as needed (mild pain). bisacodyl (DULCOLAX) 10 mg supp Yes Yes Si mg by RECTAL route once daily as needed for Constipation. bisacodyl EC (DULCOLAX, BISACODYL,) 5 mg EC tablet Yes Yes Sig: Take 5 mg by mouth once daily as needed for Constipation. ceFAZolin (ANCEF) 2 gram/100 mL in dextrose (iso-osmotic) Unknown at Unknown time No No Sig: Inject 100 mL intravenously every 8 hours. cyclobenzaprine (FLEXERIL) 5 mg tablet Yes Yes Sig: Take 5 mg by mouth every 8 hours as needed for Muscle Spasm. doxycycline monohydrate 100 mg tablet Yes Yes Sig: Take 100 mg by mouth twice daily. For 14 days. Course of therapy initiated on 06/09/2019. Scheduled to end on 06/23/2019. enoxaparin (LOVENOX) 40 mg/0.4 mL syrg Yes Yes Sig: Inject 40 mg subcutaneously every 24 hours. ibuprofen (MOTRIN) 400 mg tablet Yes Yes Sig: Take 400 mg by mouth every 6 hours as needed. insulin NPH (HumuLIN N,NovoLIN N) pen Yes Yes Sig: Inject 20 Units subcutaneously twice daily. insulin glargine (LANTUS SOLOSTAR U-100 INSULIN) 100 unit/mL (3 mL) inpn Yes Yes Sig: Inject 24 Units subcutaneously twice daily. insulin lispro (HUMALOG KWIKPEN INSULIN) 100 unit/mL inpn Yes Yes Sig: Inject as per sliding scale subcutaneously before meals. If blood sugars are: 100-150 inject 2 unit(s). 151-200 inject 4 unit(s). 201-250 inject 6 unit(s). 251-300 inject 8 unit(s). 301-350 inject 10 unit(s). 351-400 inject 12 unit(s). 401-450 inject 14 unit(s). For blood glucose <70 or >500 call MD. insulin lispro (HUMALOG KWIKPEN INSULIN) 100 unit/mL inpn Yes Yes Sig: Inject as per sliding scale subcutaneously before meals. If blood sugars are: 201-225 inject 4 unit(s). 226-250 inject 5 unit(s). 251-275 inject 6 unit(s). 276-300 inject 7 unit(s). 301-325 inject 8 unit(s). 326-350 inject 9 unit(s). 351-999 inject 10 unit(s) and notify provider. levoFLOXacin (LEVAQUIN) 750 mg tablet Yes Yes Sig: Take 750 mg by mouth once daily. For 14 days. Course of therapy initiated on 06/09/2019. Scheduled to end on 06/23/2019. lisinopril (ZESTRIL, PRINIVIL) 10 mg tablet Yes Yes Sig: Take 10 mg by mouth once daily. magnesium hydroxide (MOM) 400 mg/5 mL suspension Yes Yes Sig: Take 30 mL by mouth once daily as needed for Constipation. naloxone 4 mg/actuation nasal spray (NARCAN) Yes Yes Sig: Use 1 spray alternating nostrils every 2 minutes as needed for anxiety. ondansetron (ZOFRAN) 4 mg tablet Yes Yes Sig: Take 4 mg by mouth every 6 hours as needed (nausea). oxyCODONE IR (ROXICODONE) 5 mg immediate release tablet Yes Yes Sig: Take 5 mg by mouth every 4 hours as needed for Pain. For 5 days. Course initiated on 06/21/2019. Scheduled to end on 06/26/2019. oxyCODONE IR (ROXICODONE) 5 mg immediate release tablet Yes Yes Sig: Take 5 mg by mouth every 6 hours as needed (severe pain). For 5 days. Course initiated on 06/21/2019. Scheduled to end on 06/26/2019. oxyCODONE-acetaminophen (PERCOCET) 5-325 mg tablet Yes Yes Sig: Take 1 tablet by mouth every 6 hours as needed for Pain. pantoprazole DR (PROTONIX) 40 mg tablet OTHER Yes Yes Sig: Take 40 mg by mouth once daily. polyethylene glycol 3350 (MIRALAX) 17 gram/dose powder No Yes Sig: Take 17 g by mouth twice daily. pregabalin (LYRICA) 100 mg capsule Yes Yes Sig: Take 100 mg by mouth three times daily. senna (SENNA) 8.6 mg tab Yes Yes Sig: Take 17.2 mg by mouth twice daily. Facility-Administered Medications: None ALLERGIES No Known Allergies REVIEW OF SYSTEM: All ROS are reviewed, all other systems reviewed and see HPI for pertinent positives and negatives Objective PHYSICAL EXAM: BP 128/86 Pulse 86 Temp (Src) 98.6 (Oral) Resp 16 Ht 5' 9 (1.75m) Wt 155 lb (70.3kg) SpO2 96% BMI 22.88 kg/(m2). O2 Therapy: Room Air GENERAL: Alert, no distress, cooperative, NAD SKIN: Warm, dry intact, no open lesions, no rashs HEAD/SINUSES: Normocephalic, atraumatic, oral mucosa moist EYES: PERRLA, EOMI NECK: No jugulovenous distention, Supple, no adenopathy LUNGS: Lungs clear to auscultation, no wheezes, ronchi, or rales CARDIAC: RRR, Normal S1 and S2; no rubs, murmurs, or gallops ABDOMEN: Abdomen soft, non-tender, BS normal, No masses or organomegaly EXTREMITIES: Extremities normal, no deformities, edema, clubbing or skin discoloration. FOOT: Left foot is bandaged and in a retraction device. Open wounds, no bone noticed. NEURO: Sensation grossly intact, Cranial nerves II-XII intact, moves all 4 extremities, speech was clear and coherent - no chronic chen DATA: Diagnostic tests reviewed for today's visit: Most recent labs and imaging results. CBC: Recent Labs 06/23/19 0230 WBC 7.55 RBC 3.09* HB 8.5* HCT 28.2* PLT 584* MCV 91.3 MCH 27.5 MPV 9.4 RDW 14.4 Coags: No results for input(s): INR, APTT in the last 24 hours. Invalid input(s): PT BMP: Recent Labs 06/23/19 0230 NA 138 K 3.9 CHLOR 102 CO2 33* BUN 9 CREAT 0.61* GLUC 108* CMP: Recent Labs 06/23/19 0230 NA 138 K 3.9 CHLOR 102 CO2 33* BUN 9 CREAT 0.61* GLUC 108* CA 9.0 ANION 7* Cardiac Enzymes: No results for input(s): CK, MB, CKMB, TROPT in the last 24 hours. Liver Function, Amylase, Lipase: No results for input(s): TPROT, ALB, ALT, AST, ALKPHOS, TBILI, AMYLASE, LIPASE, LACTATE in the last 24 hours. MG/PHOS: No results for input(s): MG, P in the last 24 hours. Renal Panel: Recent Labs 06/23/19 0230 CREAT 0.61* BUN 9 GLUC 108* CA 9.0 CHLOR 102 K 3.9 CO2 33* NA 138 Heme: No results for input(s): RETICP, ABSRETIC, LD, VIKRAM, FE, TIBC, TRANSFERSAT in the last 24 hours. Assessment/Plan Active Problems: Closed trimalleolar fracture of left ankle POA: Yes Assessment AND Plan: per primary Brittle Type 1 Diabetic- Consult Endo for this Chronic Pain- Will likely need adjusted after amputation HTN- Stable on this regimen Noncompliance Polysubstance Abuse Will follow peripherally tomorrow. Will see him after surgery and see if he has further needs. VTE Prophylaxis: Lovenox 40mg Sub Q Daily Disposition: Pending workup Plan of care discussed with: Patient Code status: Full SIGNATURE: Clinton Banda MD PATIENT NAME: Tori Cantor DATE: June 23, 2019 TIME: 1:30 PM PAGER/CONTACT #: Sena Vega, RN, RN 06/23/2019 5:14 PM Signed Nursing Progress Note Patient Name: Tori Cantor Patient Location: [id number] 1 Daily Note: Hypoglycemia protocol followed- Dr. Del Real notified of low blood sugar. Orders to hold insulin with dinner and start D5 0.45% NS at midnight while NPO prior to surgery. This note was completed by: MATT Mak Chaplain [employer], 06/23/2019 7:05 PM Signed SPIRITUAL CARE PROGRESS NOTE SERVICE DATE: 06/23/2019 SERVICE TIME: 6:40 PM As Lithographic Press Feeder, I visited PT while rounding Tomorrow's Scheduled Surgery. PT spoke of being conflicted as he is scheduled to have his leg amputated tomorrow. PT spoke of family challenges that lead to minimal support. I had prayer with PT and also provided spiritual presence and comfort. To contact the Spiritual Care Department: Please call [phone]. SIGNATURE: Chaplain Kalpana [employer] PATIENT NAME: Tori Cantor DATE: June 23, 2019 TIME: 7:00 PM PAGER/CONTACT #: [phone] Valdemar Song MD 06/24/2019 6:17 AM Signed ORTHOPAEDIC SURGERY DAILY PROGRESS NOTE ASSESSMENT: 44 year old male with L bimalleolar ankle fracture/dislocation s/p external fixation and multiple IANDDs for infected fracture blisters; now with redislocation of the tibiotalar joint and worsening fracture displacement PLAN: -Pain Control -Non Weight Bearing on Left lower extremity. History of difficult complete compliance with this WB status. -DVT Prophylaxis: SCDs; Hold for surgery -Appreciate continued medical management from consultants -OR today for L BKA with removal of external fixator -NPO/IVF -Ice/elevate extremity INTERVAL HPI: Patient monitored, no new events overnight. Complains of some pain in L leg. Is prepared for his amputation tomorrow. OBJECTIVE: BP 130/85 Pulse 85 Temp 36.7 ?C (98.1 ?F) (Oral) Resp 16 Ht 175.3 cm (5' 9) Wt 70.3 kg (155 lb) SpO2 98% BMI 22.89 kg/m? Intake/Output Summary (Last 24 hours) 06/23 2300 - 06/24 0659 In: - Out: 750 [Urine:750] Exam: General: NAD, AAOx3 Left Lower Extremity: Dressing clean, dry and intact. External fixator in place Foot warm with brisk capillary refill Compartments soft, compressible. Tolerates passive stretch of digits. Labs: WBC (thou/cmm) Date Value 06/23/2019 7.55 RBC (mil/cmm) Date Value 06/23/2019 3.09 (L) Hemoglobin (g/dL) Date Value 11/11/2016 14.2 HGB (g/dL) Date Value 06/23/2019 8.5 (L) Hematocrit (%) Date Value 06/23/2019 28.2 (L) MCV (fl) Date Value 06/23/2019 91.3 MCH (pg) Date Value 06/23/2019 27.5 MCHC (%) Date Value 06/23/2019 30.1 (L) RDW-CV (%) Date Value 11/11/2016 13.7 Platelet Count (thou/cmm) Date Value 06/23/2019 584 (H) MPV (fl) Date Value 06/23/2019 9.4 Glucose (mg/dL) Date Value 06/23/2019 108 (H) BUN (mg/dL) Date Value 06/23/2019 9 Creatinine (mg/dL) Date Value 06/23/2019 0.61 (L) Sodium (mEq/L) Date Value 06/23/2019 138 Potassium (mEq/L) Date Value 06/23/2019 3.9 Chloride (mEq/L) Date Value 06/23/2019 102 CO2 (mEq/L) Date Value 06/23/2019 33 (H) Protein, Total (g/dL) Date Value 06/20/2019 7.4 Albumin (g/dL) Date Value 06/20/2019 1.9 (L) Calcium (mg/dL) Date Value 06/23/2019 9.0 Alkaline Phosphatase (U/L) Date Value 06/20/2019 117 Bilirubin, Total (mg/dL) Date Value 06/20/2019 0.3 AST (U/L) Date Value 06/20/2019 16 ALT (U/L) Date Value 06/20/2019 10 (L) Imaging: Reviewed. See consultation note. Valdemar Song MD Orthopaedic Surgery, PGY-3 Pager: [phone] Ortho Pager: [phone] Clinton Banda MD 06/24/2019 7:51 AM Signed In OR right now getting amputation. BP Stable. Have ordered a CBC in AM. Progress Notes (): Luis Mckinney, RN, RN 06/09/2019 2:47 PM Signed Pt sent in to be admitted by Surgery d/t wounds and a fractured L foot. From [facility] and seen here yesterday by Orthopedics/surgery. Given oral antibiotic prescription. Leg/foot wrapped. C/o fever (99degrees this AM). Denies cp/sob/chills/N/V. Abby Ragland, RN, RN 06/09/2019 2:50 PM Signed Bed: 42-ED Expected date: Expected time: Means of arrival: Comments: [facility] Luis Mckinney, RN, RN 06/09/2019 7:24 PM Addendum Septic team called by JOAN Phipps not needed d/t pt having them completed withing 24 hours per MD. Previous Version Ramesh Garcia DO, DO 06/09/2019 3:43 PM Signed Attending Note I personally saw and examined the patient. I reviewed the resident's note. I agree with the resident's assessment and plan unless otherwise noted. I supervised the zuñiga portion(s) of procedures performed on this patient by the resident physician. Patient comes in secondary to our request for 2 blood cultures that were positive for concerning organisms with a known concern for infection in his lower extremity where he has a orthopedic injury. On arrival to here his vitals are stable is mentating well, apparently yesterday the extremity other than some bruising doesn't look so bad today there is a purulent area over the anterior distal tib-fib region, his distal pulses are weak, and my concern is for a rapidly advancing infection with bacteremia. We will start broad-spectrum antibiotics, however his CT angiogram to evaluate the circulation in the lower extremity, involve orthopedics for debridement and definitive care. Ramesh Garcia DO 06/09/19 1543 Remy Oreilly MD, 06/09/2019 11:43 PM Attested ----- Attestation signed by Ramesh Garcia DO at 06/22/2019 1:06 PM Signature: Ramesh Garcia DO Date: 06/22/2019 Time: 1:06 PM ----- ED Provider Note Patient Name: Tori Cantor SERVICE DATE: 06/09/19 History Patient presents with: Leg Pain: sent from his facility to by admited by surgery Wound Check Patient is a 44 year old male with past medical history of diabetes, hypertension, left trimalleolar fracture presents emergency department for leg swelling, pain, loss of sensation, skin breakdown and concerns for infection. Patient fractured his left ankle approximately 13 days ago, the time is where the hospital, evaluated by orthopedic's, splinted and discharged to a nursing facility. Patient was seen in the outpatient setting approximately 7 days ago. Patient came to the emergency department yesterday for leg swelling and pain and skin breakdown. He was reevaluated by orthopedics and had his fracture reduced again. Lab work was obtained showing a leukocytosis as well as blood cultures. It was recommended the patient be admitted but he left AGAINST MEDICAL ADVICE with oral antibiotics. He comes back today for increasing swelling and pain of the left lower extremity. Patient states he lost sensation in his foot approximately 2-3 days ago. Patient denies fever, chest pain, shortness of breath. 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 - Pancreatitis 08/2014 - Tobacco abuse 05/27/2019 - Trimalleolar fracture of left ankle PAST SURGICAL HISTORY Procedure Laterality Date - NONE FAMILY HISTORY Problem Relation Age of Onset - Hypertension Mother - Diabetes Mother - Stroke Mother - Heart Mother CHF - Cataract Mother - Hypertension Father - COPD Father - Emphysema Father Social History Tobacco Use - Smoking status: Current Every Day Smoker Packs/day: 1.00 Types: Cigarettes - Smokeless tobacco: Never Used Substance and Sexual Activity - Alcohol use: Yes Comment: socially - Drug use: Yes Types: Cocaine, Amphetamines Comment: hist of cocaine and marajuana use, fentanyl - Sexual activity: Not on file ALLERGIES No Known Allergies Review of Systems Constitutional: Negative for diaphoresis and fever. HENT: Negative for congestion and rhinorrhea. Eyes: Negative for pain and visual disturbance. Respiratory: Negative for cough and shortness of breath. Cardiovascular: Negative for chest pain and leg swelling. Gastrointestinal: Negative for abdominal pain and vomiting. Genitourinary: Negative for dysuria and frequency. Musculoskeletal: Positive for arthralgias and joint swelling. Negative for myalgias. Skin: Positive for color change and wound. Negative for pallor and rash. Neurological: Negative for syncope and headaches. Psychiatric/Behavioral: Negative for self-injury and suicidal ideas. Physical Exam BP 134/98 Pulse 106 Temp (Src) 98.4 (Temporal) Resp 16 Ht 5' 9 (1.75m) Wt 200 lb 9.9 oz (91.0kg) SpO2 100% BMI 29.61 kg/(m2). O2 Therapy: Room Air Physical Exam Vitals signs and nursing note reviewed. Constitutional: General: He is not in acute distress. Appearance: He is well-developed. He is not diaphoretic. HENT: Head: Normocephalic and atraumatic. Nose: Nose normal. Eyes: Pupils: Pupils are equal, round, and reactive to light. Neck: Musculoskeletal: Normal range of motion and neck supple. Cardiovascular: Rate and Rhythm: Normal rate and regular rhythm. Pulses: Dorsalis pedis pulses are detected w/ Doppler on the left side. Posterior tibial pulses are 0 on the left side. Pulmonary: Effort: Pulmonary effort is normal. Breath sounds: Normal breath sounds. Abdominal: General: Bowel sounds are normal. Palpations: Abdomen is soft. Musculoskeletal: Normal range of motion. General: No deformity. Comments: No calf tenderness Skin: General: Skin is warm and dry. Capillary Refill: Capillary refill takes 2 to 3 seconds. Neurological: General: No focal deficit present. Mental Status: He is alert and oriented to person, place, and time. Psychiatric: Behavior: Behavior normal. ED Sepsis Care Path Does the patient meet sepsis criteria? Yes Diagnostic Testing ED Labs Ordered and Reviewed CBC + AUTO DIFF (AK,AV,EU,FV,HL,MARIA TERESA,MM,SP) - Abnormal; Notable for the following components: Result Value Ref Range WBC 27.50 (*) 4.23 - 9.07 thou/cmm RBC 3.99 (*) 4.63 - 6.08 mil/cmm HGB 11.4 (*) 13.7 - 17.5 g/dL Hematocrit 34.9 (*) 40.1 - 51.0 % MPV 12.1 (*) 8.7 - 12.0 fl Abs. Neut(Anc) 22.72 (*) 1.78 - 5.38 thou/cmm Immature Grans # 1.07 (*) 0.00 - 0.05 thou/cmm Abs. Hutchinson 2.67 (*) 0.30 - 0.82 thou/cmm All other components within normal limits COMPREHENSIVE METABOLIC PANEL (AK,AV,EU,FV,HL,MARIA TERESA,MM,SP) - Abnormal; Notable for the following components: Sodium 127 (*) 136 - 145 mEq/L Chloride 96 (*) 98 - 107 mEq/L Glucose 241 (*) 70 - 99 mg/dL BUN 35 (*) 7 - 18 mg/dL Albumin 2.0 (*) 3.4 - 5.0 g/dL Protein, Total 6.0 (*) 6.4 - 8.2 g/dL AST 44 (*) 15 - 37 U/L Alkaline Phosphatase 386 (*) 45 - 117 U/L Bilirubin, Total 2.3 (*) 0.2 - 1.0 mg/dL All other components within normal limits LACTIC ACID,POC(AK) PROTHROMBIN TIME / PT (AK,AV,EU,FV,HL,MARIA TERESA,MM,SP) ACTIVATED PTT (AK,AV,EU,FV,HL,MARIA TERESA,MM,SP) LACTIC ACID,POC(AK) MDRD GFR LACTIC ACID / LACTATE (AK,AV,EU,FV,HL,MARIA TERESA,MM,SP) C-REACTIVE PROTEIN (CRP) (AK,AV,EU,FV,HL,MARIA TERESA,MM,SP) SED RATE ERYTHROCYTE (AK,AV,EU,FV,HL,MARIA TERESA,MM,SP) HGB A1C (AK,AV,EU,FV,HL,MARIA TERESA,MM,SP) ROUTINE CULTURE + STAIN (AK) BLOOD CULTURE DRAW (AV,EU,FV,HL,MARIA TERESA,MM,SP) BLOOD CULTURE DRAW (AV,EU,FV,HL,MARIA TERESA,MM,SP) Procedures ED Course / Clinical Impression ED Course as of Jun 09 2343 Remy Oreilly's Documentation [facility] Jun 09, 2019 [id number] Ortho paged [phone] 44 year old male presents with increased leg swelling, pain and loss of sensation. On initial assessment patient was found ill-appearing, no acute distress, vitals hemodynamically stable and afebrile. Initial concern for necrotizing fasciitis, osteomyelitis, compartment syndrome, vascular compromise. Consultation with pharmacy recommends vancomycin and Zosyn. Clindamycin was added after subcutaneous air deep in the soft tissue next to the bone, raising concern for necrotizing fasciitis. 1600 Subcutaneous air on bedside ultrasound raising the concern for necrotizing fasciitis. Findings discussed with the resident . 1730 Initial lactic acid is 2. CBC shows leukocytosis of 28 which has increased from 23 yesterday, worsening anemia, no thrombocytopenia. Metabolic panel shows new hyponatremia with a sodium of 127, worsening but normal kidney function and slight elevation of AST. INR is normal at 1.08. X-rays obtained show displaced fracture of the left ankle as well as soft tissue gas present along the medial and lateral aspects of the lower leg, this is consistent with necrotizing fasciitis which I shared with the orthopedic residents. CTA of the lower extremities shows mild atherosclerotic disease but no occlusions. Redemonstration of the fracture and multiple soft tissue gas which I believe to be necrotizing fasciitis. Discussed with orthopedics [facility] again and they recommended medicine admission. [address] Banda who requests repeat blood cultures and wound cultures. Pt admitted for further management. Clinical Impressions as of Jun 09 2343 Sepsis, due to unspecified organism, unspecified whether acute organ dysfunction present (HCC) MDM / Disposition / Plan MDM SIGNATURE: MD Remy Vargas Res, MD Resident 06/09/19 2343 Ramesh Garcia, 06/22/19 1306 JADYN CEJA 06/09/2019 4:24 PM Signed PHARMACY SEPSIS TEAM RESPONSE Patient Name: Tori Cantor Allergies: ALLERGIES No Known Allergies Pharmacy participated in multidisciplinary team bedside response for a potential severe sepsis in the emergency department. Any identified issues relating to medication therapy have been discussed directly with the physician(s) currently providing care for this patient. Additional Comments: Signature: MITCHELL PABLO PHARMACIST Pager/Phone: [phone] Date of Service: 06/09/2019 Time of Service: 4:24 PM Julianna Ballard, RN, RN 06/09/2019 4:[address] and xray made aware pt is ready, message left Jayy Vogel MD 06/10/2019 9:05 AM Signed Orthopaedic Surgery Consultation Chief Complaint: Left ankle pain and drainage Admitting Physician: Jayy Vogel MD Date: June 09, 2019 Time: 4:38 PM ORTHO STAFF: Patient seen and examined. Agree with resident assessment and plan noted below. Known patient with left ankle fracture dislocation and medial ulcer secondary to extended dislocated period after IVDA. The ankle was reduced and splinted, with redressing of the improving medial ulcer 06/02/2019. Patient ambulated in the splint at his facility and removed the splint. Given highly unstable trimalleolar fracture pattern that was previously dislocated, he redislocated the ankle. There has been worsening of the medial wound with extension of fracture blisters and cellulitis proximally. Had scheduled procedure for ORIF left ankle after office visit evaluation 06/02/2019, now with plan for external fixator application and application wound vac to the blistered region (note: this is not necrotizing fasciitis). This complication was discussed in detail with the patient, including the causative factors, before it occurred. Expect extended treatment in wound vac and antibiotic regimen before any definitive stabilization procedure can be attempted. High risk for extremity amputation. Discussed updated risks and benefits of planned procedure in detail with patient. No family present and he indicates no family will be available. Jayy Vogel MD History of Present Illness Tori Cantor is a 44 year old male with history of IVDA and DM (with peripheral neuropathy) who presents for repeat evaluation of left ankle pain and drainage. The patient has history of left trimalleolar ankle fracture/dislocation that was closed-reduced in the ED on 05/27/2019. At that time skin maceration was noted at the medial malleolus. The patient was temporarily admitted and discharged to a nursing facility. Since the time of discharge, the patient notes that he has not been compliant with non-weight bearing restrictions and has been ambulating on the ankle in the splint. He was seen in the ED last night after removing his own splint and noting worsening of the fracture blisters. He was again closed-reduced. At that time it was recommended that he be admitted for IV antibiotics and monitoring, but the patient left the ED AMA. He returns today complaining of increased drainage on the splint and worsening pain. He denies any fevers or chills. He denies any new trauma, but again endorses ambulating. Review of Systems A 10-point review of systems was completed and is otherwise non-contributory to the patient's presenting condition. History PAST MEDICAL HISTORY Diagnosis Date - Diabetes ([facility]) - DKA (diabetic ketoacidosis) ([facility]) 08/2014 - Hyperglycemia 05/27/2019 - Hypertension - IVDU (intravenous drug user) 05/27/2019 - Lactose intolerance 07/30/2016 - Left ankle joint deformity 05/27/2019 - Pancreatitis 08/2014 - Tobacco abuse 05/27/2019 - Trimalleolar fracture of left ankle PAST SURGICAL HISTORY Procedure Laterality Date - NONE HEPATITIS A(1 of 2 - Risk 2-dose series) due on 1975 DTAP,TDAP,TD(1 - Tdap) due on 1985 ONE PNEUMOVAX PRIOR TO AGE 65 due on 1990 ANNUAL PCP TEAM CHRONIC DISEASE VISIT due on 1992 BP CONTROLLED (<130/80) due on 1992 HEPATITIS B(1 of 3 - Risk 3-dose series) due on 1993 URINE ALBUMIN:CREATININE RATIO due on 11/01/2016 LDL CHOLESTEROL due on 11/01/2016 INFLUENZA(1) due on 03/20/2019 DIABETIC FOOT EXAM due on 04/02/2019 HBA1C due on 08/27/2019 DILATED RETINAL EXAM due on 01/27/2020 A review of the patient's history was completed and is otherwise non-contributory to the patient's presenting condition. Medications doxycycline monohydrate (AVIDOXY) 100 mg tablet Take 1 tablet by mouth twice daily for 14 days. levoFLOXacin (LEVAQUIN) 750 mg tablet Take 1 tablet by mouth once daily for 14 days. cyclobenzaprine (FLEXERIL) 10 mg tablet Take 0.5 tablets by mouth three times daily as needed. acetaminophen (TYLENOL) 325 mg tablet Take 2 tablets by mouth every 6 hours as needed. enoxaparin (LOVENOX) 40 mg/0.4 mL syrg Inject 0.4 mL subcutaneously q 24 HR. insulin glargine (LANTUS SOLOSTAR, BASAGLAR KWIKPEN) 100 unit/mL (3 mL) inpn Inject 20 Units subcutaneously twice daily. insulin lispro (HUMALOG KWIKPEN INSULIN) 100 unit/mL inpn Inject 14 Units subcutaneously three times daily before meals. lisinopril (ZESTRIL, PRINIVIL) 10 mg tablet Take 1 tablet by mouth once daily for [address] (PROTONIX) 40 mg tablet Take 40 mg by mouth once daily. Lancets lancets Use as instructed Insulin Dudley, Disposable, (BD ULTRAFINE III MINI PEN) 31 gauge x 3/16 ndle USE WITH INSULIN PENS 4TIMES DAILY blood sugar diagnostic ([employer] Interactive ULTRA TEST) test strip CHECK BLOOD SUGARS 6 TIMES DAILY DULoxetine (CYMBALTA) 30 mg capsule Take 1 capsule by mouth once daily. pregabalin (LYRICA) 150 mg capsule Take 150 mg by mouth as needed (nerve pain). Allergies Patient has no known allergies. Family History Family History Reviewed Including Cardiac Diseases, Psychiatric Diseases, AND Substance Abuse Problem: Hypertension Relation: Mother Age of Onset: (Not Specified) Problem: Diabetes Relation: Mother Age of Onset: (Not Specified) Problem: Stroke Relation: Mother Age of Onset: (Not Specified) Problem: Heart Relation: Mother Age of Onset: (Not Specified) Comment: CHF Problem: Cataract Relation: Mother Age of Onset: (Not Specified) Problem: Hypertension Relation: Father Age of Onset: (Not Specified) Problem: COPD Relation: Father Age of Onset: (Not Specified) Problem: Emphysema Relation: Father Age of Onset: (Not Specified) Social History Employer And Job Title: None on file Years Of Education Completed: Not specified Marital Status: Social History Tobacco Use - Smoking status: Current Every Day Smoker Packs/day: 1.00 Types: Cigarettes - Smokeless tobacco: Never Used Substance Use Topics - Alcohol use: Yes Comment: socially - Drug use: Yes Types: Cocaine, Amphetamines Comment: hist of cocaine and marajuana use, fentanyl Physical Examination Vitals BP 115/75 Pulse 89 Temp 36.8 ?C (98.2 ?F) (Oral) Resp 15 Ht 175.3 cm (5' 9) Wt 88.5 kg (195 lb) SpO2 97% BMI 28.80 kg/m? General Alert and oriented. NAD. Left Lower Extremity Extensive swelling distal to the knee. Fracture blisters over the anterior and anteromedial leg with clear, serous drainage. Macerated skin over anteromedial leg with beefy red granulation tissue. Diffusely diminished sensation Damico/Sa/DP/SP/T. Motor intact EHL/DF/PF. DP pulses palpable; BCR all digits. Components of the patient's physical examination not noted above were not contributory to the present assessment. Labs Recent Labs 06/09/19 1556 06/09/19 1548 06/08/192024 NA -- 127* 128* K -- 3.8 3.7 CHLOR -- 96* 93* CO2 -- 26 30 BUN -- 35* 31* CREAT -- 1.03 0.78 GLUC -- 241* 174* ANION -- 9 9 CA -- 9.4 9.4 ALB -- 2.0* -- AST -- 44* -- ALT -- 42 -- ALKPHOS -- 386* -- TBILI -- 2.3* -- WBC -- 27.50* 23.44* HB -- 11.4* 12.2* HCT -- 34.9* 36.6* PLT -- 187 223 LACT 2.0 -- -- INR -- 1.08 -- Imaging X-rays of the left ankle were obtained, reviewed, and interpreted. Images show bimalleolar ankle fracture with lateral dislocation of the talus relative to the tibial plafond. Soft tissue gas in the anteromedial leg. Assessment and Plan Tori Cantor is a 44 year old male with extensive fracture blistering and cellulitis in setting of trimalleolar ankle fracture/dislocation status-post multiple closed-reductions. - Admit to Medicine - Pain control. - DVT PPx: SCDs. Hold chemical prophylaxis for surgery tomorrow. - Antibiotics: Per primary team, recommend broad-spectrum coverage. - Weight-bearing Status: NWB LLE. - Short leg splint placed and molded in ED. - Maintain splint on LLE. - Diet: Diabetic. NPO/IVF at midnight. - OR 06/10/19 for application of external fixator, irrigation and debridement, and application of wound vac to left ankle. - Consent obtained and placed in chart. - Discussed with Dr. Vogel who agrees with the above recommendations. Previous Version Julianna Ballard RN, RN 06/09/2019 4:54 PM Signed Pt at CT/xray Luis Mckinney RN, RN 06/09/2019 7:24 PM Signed Wound cultures sent Luis Mckinney RN, RN 06/09/2019 7:28 PM Signed Wound culture taken by doctor at lower extremity wound and sent to the lab. Luis Mckinney RN, RN 06/09/2019 7:51 PM Signed Repeat lactic acid collected (blue on ice) and sent to the lab. Destinee Navarro DO 06/10/2019 6:20 AM Addendum DEPARTMENT OF HOSPITAL MEDICINE HISTORY AND PHYSICAL EXAM SERVICE DATE: 06/09/2019 SERVICE TIME: 7:45 PM Primary Care Physician: Elizabeth Nelson DO NIGHT AND WEEKEND COVERAGE: From 7am - 7pm, please call Sound After 7pm, please call cross cover pager #[phone] Subjective CHIEF COMPLAINT: Ankle swelling and pain HPI: This is a 44 year old male who presents with the above chief complaint. 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 In early May he was admitted with an ankle fracture and was placed in a splint and discharge to SNF. He presented back to the ER yesterday for an open wound to his soft tissues. Apparently he removed his splint. Fracture blisters were noted on the ER documentation. He had a reduction at that time. Admission was recommended however he elected to leave AMA. Presented back to the ER today with worsening pain and drainage. He apparently has been non complaint with weight bearing restrictions. Tonight he was seen by ortho and plans for OR tomorrow. Denies any fever, chills, chest pain or abdominal pain. PAST MEDICAL HISTORY Diagnosis Date - Diabetes (HCC) - DKA (diabetic ketoacidosis) (HCC) 08/2014 - Hyperglycemia 05/27/2019 - Hypertension - IVDU (intravenous drug user) 05/27/2019 - Lactose intolerance 07/30/2016 - Left ankle joint deformity 05/27/2019 - Pancreatitis 08/2014 - Tobacco abuse 05/27/2019 - Trimalleolar fracture of left ankle PAST SURGICAL HISTORY Proce (more content not included)... Normal [facility] Hemogram/Diffon 06-21-2019 Abs Immature Grans 0.04 thou/cmm Normal 0.00-0.05 [facility] Comment on above: Performed By: #### U DRG2 #### [facility] [address] [place] [address] Abs Neut (ANC) 6.48 thou/cmm High 1.78-5.38 [facility] Comment on above: Performed By: #### U DRG2 #### [facility] [address] [place] [address] Abs. Baso 0.12 thou/cmm High 0.01-0.08 [facility] Comment on above: Performed By: #### U DRG2 #### [place] [address] Abs. Hutchinson 0.83 thou/cmm High 0.30-0.82 [facility] Comment on above: Performed By: #### U DRG2 #### [place] [address] Basophils/100 WBC (Bld) 1.3 % Normal [facility] Comment on above: Performed By: #### U DRG2 #### [place] [address] Eosinophils (Bld) [#/Vol] 0.12 thou/cmm Normal 0.04-0.54 [facility] Comment on above: Performed By: #### U DRG2 #### [place] [address] Eosinophils/100 WBC (Bld) 1.3 % Normal [facility] Comment on above: Performed By: #### U DRG2 #### [place] [address] Erythrocyte distribution width (RBC) [Ratio] 14.1 % Normal 11.6-14.4 [facility] Comment on above: Performed By: #### U DRG2 #### [place] [address] Hematocrit (Bld) [Volume fraction] 29.5 % Low 40.1-51.0 [facility] Comment on above: Performed By: #### U DRG2 #### [address] [place], [place] [address] Hemoglobin (Bld) [Mass/Vol] 9.2 g/dL Low 13.7-17.5 [facility] Comment on above: Performed By: #### U DRG2 #### [facility] [address] [place], [place] [address] Immature Grans 0.40 % Normal [facility] Comment on above: Performed By: #### U DRG2 #### [facility] [address] [place] [address] Lymphocytes (Bld) [#/Vol] 1.64 thou/cmm Normal 0.84-2.85 [facility] Comment on above: Performed By: #### U DRG2 #### [facility] [address] [place] [address] Lymphocytes/100 WBC (Bld) 17.8 % Normal [facility] Comment on above: Performed By: #### U DRG2 #### [facility] [address] [place] [address] MCH (RBC) [Entitic mass] 28.1 pg Normal 25.7-32.2 [facility] Comment on above: Performed By: #### U DRG2 #### [facility] [address] [place] [address] MCHC (RBC) [Mass/Vol] 31.2 % Low 32.3-36.5 [facility] Comment on above: Performed By: #### U DRG2 #### [facility] [address] [place] [address] MCV (RBC) [Entitic vol] 90.2 fL Normal 83.2-95.6 [facility] Comment on above: Performed By: #### U DRG2 #### [facility] [address] [place] [address] Monocytes/100 WBC (Bld) 9.0 % Normal [facility] Comment on above: Performed By: #### U DRG2 #### [facility] [address] [place] [address] Platelet mean volume (Bld) [Entitic vol] 9.5 fL Normal 8.7-12.0 [facility] Comment on above: Performed By: #### U DRG2 #### [facility] [address] [place], [place] [address] Platelets (Bld) [#/Vol] 640 thou/cmm High 141-365 [facility] Comment on above: Performed By: #### U DRG2 #### [facility] [address] [place], [place] [address] RBC (Bld) [#/Vol] 3.27 mil/cmm Low 4.63-6.08 [facility] Comment on above: Performed By: #### U DRG2 #### [facility] [address] [place], [place] [address] RDW SD 46.5 fl High 36.1-45.8 [facility] Comment on above: Performed By: #### U DRG2 #### [facility] [address] [place], [place] [address] Seg Neutrophil 70.2 % Normal [facility] Comment on above: Performed By: #### U DRG2 #### [facility] [address] [place], [place] [address] WBC (Bld) [#/Vol] 9.23 thou/cmm High 4.23-9.07 [facility] Comment on above: Performed By: #### U DRG2 #### [facility] [address] [place], [place] [address] NURSING PROGon 06-21-2019 NURSING PROG HNO ID: [id number] Author: Carmelita (Rn) MATT Meehan Service: Nursing Author Type: Registered Nurse Type: Nursing Progress Note Filed: 06/22/2019 4:49 AM Note Text: - Nurse paged ortho on-call (#[phone]) and supervisor engraving Alma, notified that the patient is upset by bedrest order and wants to get up to a bedside commode to have bowel movement. - The patient states that he was discharged yesterday, and on his previous admission he was encouraged to use a bedside commode. Nurse attempted to educate pt RE: the change in his safety and mobility needs, but pt grew verbally upset and requested to talk to the supervisor engraving. - Nurse asked the patient if he would like to speak to the ortho resident on-call to explain the orthopedic changes between the current and previous admissions, but the patient declined and stated he would speak to them in the morning before surgery. Normal [facility] PLAN OF CAREon 06-21-2019 PLAN OF CARE HNO ID: [id number] Author: Jayy Mcgill (Pharmacist) Service: Pharmacy Author Type: Pharmacist Type: Plan of Care Filed: 06/24/2019 2:20 PM Note Text: MEDICATION HISTORY Patient Name:Liliam Cantor : 1975 Source of history:assisted/Other MAR - [facility] Medication Nonadherence Identified: No barriers noted The above information represents the best possible medication history: Yes Additional comments: -I obtained a medication list from [facility]. -Please note that [facility] has patient on two different Humalog 100u/ml sliding scales and also two different strengths of duloxetine (20mg and 30mg). -I also called to clarify patient's cefazolin dosage at the facility. Rx for cefazolin on facility medication list was written as follows: cefazolin sodium-dextrose solution 2-4gm/100ml. Spoke to ER pharmacist to confirm that this is not an exact dosage. Per facility nurse, they have not started the patient's cefazolin regimen as of yet because they were also attempting to clarify this dose. Facility nurse stated that the order was sent over from [facility] written like this. I reviewed patient's discharge medications from 06/20/2019 and noted that Rx was written for cefazolin 2gm. I updated the SOFTWARE ENG[employer] medication list accordingly. Allergies: ALLERGIES No Known Allergies Preferred Pharmacy: N/A Patient is from a nursing facility. Qdqil-[id number]-Hdghxzume Medication List Adjustments: Medication Regimen Changes: Duloxetine 20mg: Changed from BID to once daily. Medications Added: Duloxetine 30mg capsule: Per facility medication list. Doxycyline monohydrate 100mg tablet: Per facility medication list. Ibuprofen 400mg tablet: Per facility medication list. Lantus 100u/ml solution: Per facility medication list. Acetaminophen 325mg tablet: Per facility medication list. Bisacodyl 10mg suppostory: Per facility medication list. Bisacodyl 5mg DR tablet: Per facility medication list. Levofloxacin 750mg tablet: Per facility medication list. Oxycodone 5mg tablet: Per facility medication list. Percocet 5-325mg tablet: Per facility medication list. Medications Removed: Senna-docusate 8.6-50mg tablet: Not on facility medication list. Short-Term Medications: None. Patient is not currently on cefazolin at facility. Further Clarification Required: None Patient is a 30 day readmission: Yes. Description: Last admtited to [facility] on 06/09/2019 for sepsis. Patient Interested in Bedside Delivery: No. Patient is from a nursing facility. Time Spent Reviewing Patient's Medications: 60 minutes Current [employer] Medications: Prior to Admission medications as of 06/14/19 1003 Medication Sig Last Dose Taking acetaminophen (TYLENOL) 325 mg tablet Take 650 mg by mouth every 6 hours as needed (mild pain). Yes acetaminophen (TYLENOL) 325 mg tablet Take 650 mg by mouth every 6 hours as needed for Fever. Yes acetaminophen (TYLENOL) 325 mg tablet Take 650 mg by mouth every 6 hours as needed (mild pain). Yes bisacodyl (DULCOLAX) 10 mg supp 10 mg by RECTAL route once daily as needed for Constipation. Yes bisacodyl EC (DULCOLAX, BISACODYL,) 5 mg EC tablet Take 5 mg by mouth once daily as needed for Constipation. Yes cyclobenzaprine (FLEXERIL) 5 mg tablet Take 5 mg by mouth every 8 hours as needed for Muscle Spasm. Yes levoFLOXacin (LEVAQUIN) 750 mg tablet Take 750 mg by mouth once daily. For 14 days. Course of therapy initiated on 06/09/2019. Scheduled to end on 06/23/2019. Yes lisinopril (ZESTRIL, PRINIVIL) 10 mg tablet Take 10 mg by mouth once daily. Yes pregabalin (LYRICA) 100 mg capsule Take 100 mg by mouth three times daily. Yes magnesium hydroxide (MOM) 400 mg/5 mL suspension Take 30 mL by mouth once daily as needed for Constipation. Yes naloxone 4 mg/actuation nasal spray (NARCAN) Use 1 spray alternating nostrils every 2 minutes as needed for anxiety. Yes ondansetron (ZOFRAN) 4 mg tablet Take 4 mg by mouth every 6 hours as needed (nausea). Yes oxyCODONE IR (ROXICODONE) 5 mg immediate release tablet Take 5 mg by mouth every 4 hours as needed for Pain. For 5 days. Course initiated on 06/21/2019. Scheduled to end on 06/26/2019. Yes oxyCODONE IR (ROXICODONE) 5 mg immediate release tablet Take 5 mg by mouth every 6 hours as needed (severe pain). For 5 days. Course initiated on 06/21/2019. Scheduled to end on 06/26/2019. Yes oxyCODONE-acetaminophen (PERCOCET) 5-325 mg tablet Take 1 tablet by mouth every 6 hours as needed for Pain. Yes senna (SENNA) 8.6 mg tab Take 17.2 mg by mouth twice daily. Yes DULoxetine (CYMBALTA) 30 mg capsule Take 30 mg by mouth once daily. For depression. Yes doxycycline monohydrate 100 mg tablet Take 100 mg by mouth twice daily. For 14 days. Course of therapy initiated on 06/09/2019. Scheduled to end on 06/23/2019. Yes DULoxetine (CYMBALTA) 20 mg capsule Take 20 mg by mouth once daily. For anxiety. Yes insulin lispro (HUMALOG KWIKPEN INSULIN) 100 unit/mL inpn Inject as per sliding scale subcutaneously before meals. If blood sugars are: 100-150 inject 2 unit(s). 151-200 inject 4 unit(s). 201-250 inject 6 unit(s). 251-300 inject 8 unit(s). 301-350 inject 10 unit(s). 351-400 inject 12 unit(s). 401-450 inject 14 unit(s). For blood glucose <70 or >500 call MD. Yes insulin lispro (HUMALOG KWIKPEN INSULIN) 100 unit/mL inpn Inject as per sliding scale subcutaneously before meals. If blood sugars are: 201-225 inject 4 unit(s). 226-250 inject 5 unit(s). 251-275 inject 6 unit(s). 276-300 inject 7 unit(s). 301-325 inject 8 unit(s). 326-350 inject 9 unit(s). 351-999 inject 10 unit(s) and notify provider. Yes ibuprofen (MOTRIN) 400 mg tablet Take 400 mg by mouth every 6 hours as needed. Yes insulin NPH (HumuLIN N,NovoLIN N) pen Inject 20 Units subcutaneously twice daily. Yes insulin glargine (LANTUS SOLOSTAR U-100 INSULIN) 100 unit/mL (3 mL) inpn Inject 24 Units subcutaneously twice daily. Yes polyethylene glycol 3350 (MIRALAX) 17 gram/dose powder Take 17 g by mouth twice daily. Yes enoxaparin (LOVENOX) 40 mg/0.4 mL syrg Inject 40 mg subcutaneously every [address] (PROTONIX) 40 mg tablet Take 40 mg by mouth once daily. Yes ceFAZolin (ANCEF) 2 gram/100 mL in dextrose (iso-osmotic) Inject 100 mL intravenously every 8 hours. Unknown at Unknown time Tatum Lynn (Remedial Project Manager) Pager: [phone] [facility] Phone: [phone] June 21, 2019 2:37 PM MEDICATION RECONCILIATION Reconciliation: Yes All [employer] medications addressed by LIP Duloxetine 30 mg was placed on hold on admission (20 mg daily was ordered) Jayy Mcgill, Pharmacist June 24, 2019 2:19 PM Normal [facility] Protimeon 06-21-2019 INR Coag (PPP) [Relative time] 1.01 {INR} Normal 0.90-1.30 [facility] Comment on above: Result Comment: Nimisha min K Antagonist (VKA) Therapeutic Range: INR 2 to 3 (Target INR of 2.5) Note: For patients treated with VKA drugs, such as warfarin, the [place] [employer] 2012 Guideline recommends a therapeutic INR range of 2 to 3 (target INR of 2.5). This recommendation includes high-risk patients with antiphospholipid syndrome with previous arterial or venous thromboembolism, current-generation mechanical or bioprosthetic aortic heart valve replacement. Note: Patients with mechanical aortic valve replacement and additional risk factors for thromboembolic events (atrial fibrillation, previous thromboembolism, LV dysfunction, hypercoagulable conditions) or an older generation mechanical AVR (i.e., ball in-Cage) or any mechanical MVR should have a INR therapeutic range of 2.5 to 3.5 target INR of 3). Ugo GH, et al. Chest 2012; 141:7S-47S Anatoliy BRADFORD et al. JACC 2017; 70: 252-289 Performed By: #### U DRG2 #### [place] [address] PT Coag (PPP) [Time] 10.9 s Normal 9.7-13.0 [facility] Comment on above: Performed By: #### U DRG2 #### [facility] [address] [place] [phone] XR ANKLE 3V AP/LAT/OBL LTon 06-21-2019 XR ANKLE 3V AP/LAT/OBL LT * * *Final Report* * * DATE OF EXAM: Jun 21 2019 2:11PM [id number] - XR ANKLE 3V AP/LAT/OBL LT / PROCEDURE REASON: Post-operative / post-procedure assessment, symptomatic * * * * Physician Interpretation * * * * Exam: 2 views of the left tibia/fibula and 3 views of the left ankle dated 06/21/2019 2:11 PM. Indication: Post-operative / post-procedure assessment, symptomatic Comparison: CT dated 06/14/2019. Findings: External fixation hardware present. There is dislocation of the tibiotalar joint with medial displacement of the tibia relative to the talus. There is displacement of the fibula shaft medial relative to the lateral malleolus. There is nonosseous fusion of a medial malleolus fracture. IMPRESSION: External fixation hardware present with malalignment of the left ankle joint. Av Specialist: PSCB Transcribe Date/Time: Jun 21 2019 3:00P Dictated by : MO SIDDIQUI MD This examination was interpreted and the report reviewed and electronically signed by: MO SIDDIQUI MD on Jun 21 2019 3:08PM EST Normal [facility] XR TIBIA FIBULA 2V AP/LAT LT on 06-21-2019 XR TIBIA FIBULA 2V AP/LAT LT * * *Final Report* * * DATE OF EXAM: Jun 21 2019 2:11PM [id number] - XR TIBIA FIBULA 2V AP/LAT LT / PROCEDURE REASON: Post-operative / post-procedure assessment, symptomatic * * * * Physician Interpretation * * * * Exam: 2 views of the left tibia/fibula and 3 views of the left ankle dated 06/21/2019 2:11 PM. Indication: Post-operative / post-procedure assessment, symptomatic Comparison: CT dated 06/14/2019. Findings: External fixation hardware present. There is dislocation of the tibiotalar joint with medial displacement of the tibia relative to the talus. There is displacement of the fibula shaft medial relative to the lateral malleolus. There is nonosseous fusion of a medial malleolus fracture. IMPRESSION: External fixation hardware present with malalignment of the left ankle joint. Av Specialist: BEN Transcribe Date/Time: Jun 21 2019 3:00P Dictated by : MO SIDDIQUI MD This examination was interpreted and the report reviewed and electronically signed by: MO SIDDIQUI MD on Jun 21 2019 3:08PM EST [facility] ALLIED HEALTHon 06-20-2019 ALLIED HEALTH HNO ID: [id number] Author: Norma AaronRn) MATT Garza Service: Diabetes Education Author Type: Registered Nurse Type: Allied Health Filed: 06/20/2019 11:55 AM Note Text: DIABETES EDUCATION PROGRESS NOTE SERVICE DATE: 06/20/2019 SERVICE TIME: 1130 RECOMMENDATIONS: Patient needs to follow-up with primary care physician after discharge. Follow up with endo as indicated PATIENT HISTORY/ASSESSMENT: Previously diagnosed: Type 1 and at age 10 TOPIC(S): Survival Skills: Basic diabetes mellitus disease process Acute complications: Hypoglycemia, Hyperglycemia and Sick Day Management Blood glucose targets: FBS 70-110 2hr pc 70-140 or as per endo recs Patient Education/Health Promotion: Complication prevention, Coping skills and Self management and follow up Diabetes Management: Self foot care, Foot exam, Dilated eye exam and Hemaglobin A1C EDUCATION: Cognitive ability: Alert and Oriented. Motivation to learn: Interested. Barriers to learning: None Family support: Unable to assess - Family not present Education Type: Individual instruction Written instruction - handouts Verbal instruction Response to education: States/Identifies. Education provided to: Patient. Teachback method used. Time Spent (Minutes): 15 DM ed complete and signed off. Re-consult prn. SIGNATURE: Norma Garza RN PATIENT NAME: Tori Cantor DATE: June 20, 2019 TIME: 11:52 AM PAGER: [phone] [facility] ALLIED [facility] HNO ID: [id number] Author: Norma Hogan) MATT Garza Service: Diabetes Education Author Type: Registered Nurse Type: Allied Health Filed: 06/20/2019 11:13 AM Note Text: DM Ed note: Continuing to follow for DM ed needs. Plan: Complete DM ed today. [facility] CASE MANAGEMon 06-20-2019 CASE MANAGEM HNO ID: [id number] Author: Muna (Rn) MATT Cordero Service: Care Management Author Type: Registered Nurse Type: Care Mgt Progress Note Filed: 06/20/2019 4:20 PM Note Text: CARE MANAGEMENT DISCHARGE NOTE SERVICE DATE: 06/20/2019 SERVICE TIME: 1615 LOS: 11 days Admission Date: 06/09/2019 DISCHARGE ARRANGEMENT (list agency and phone number) alf facility: Was an expedited discharge program used? No Provider: [facility] CAREGIVER ASSESSMENT: Caregiver is ready, willing and able to meet the patient's needs as recommended by the inter-professional team? No Caregiver Needed Patient's transition needs and plan for meeting these needs: snf Does the patient have an acute stroke diagnosis, or has the patient had a stroke during this admission? No HANDOFF COMMUNICATION: summary of care TRANSPORTATION ARRANGEMENTS: Mode of Transportation: Ambulance Transportation Agency and Phone #: [facility] ( [facility] ) [phone] / [phone]. Date of Trip: 06/20/2019 Type of Service: BLS Non-emergency Is Patient Medicaid Pending: No Discussion of financial coverage occurred with Patient . Rn Social Services Location: [facility] Destination: [facility] Financial Care Management Responsibility: None Estimated Charge: na Approving Mechanical Process Engineer: breanna ADDITIONAL CONTACT RESOURCES: [facility], transport arranged for 7pm. Facility, RN and patient notified of time. SIGNATURE: Muna Cordero RN PATIENT NAME: Tori Cantor DATE: June 20, 2019 TIME: 4:15 PM PAGER/CONTACT #: [phone] [facility] CASE MANAGEM HNO ID: [id number] Author: Shirley Licea Service: Care Management Author Type: ? Type: Care Mgt Progress Note Filed: 06/20/2019 4:04 PM Note Text: CARE MANAGEMENT PROGRESS NOTE SERVICE DATE: 06/20/2019 SERVICE TIME: 1030 LOS: 11 days IM letter given to patient on [phone]. SIGNATURE: Shirley Licea PATIENT NAME: Tori Cantor DATE: June 20, 2019 TIME: 4:04 PM PAGER/CONTACT #: [phone] [facility] CASE MANAGEM HNO ID: [id number] Author: Muna (Rn) MATT Cordero Service: Care Management Author Type: Registered Nurse Type: Care Mgt Progress Note Filed: 06/20/2019 1:26 PM Note Text: CARE MANAGEMENT PROGRESS NOTE SERVICE DATE: 06/20/2019 SERVICE TIME: 1324 LOS: 11 days Needs Prior to Discharge: Discharge Prescriptions;Discharge Transportation Plan is to return to snf [facility], phone call to admissions and spoke with Tereza; discussed will need PICC line for IV atbx and wound vac. Insurance authorization is good until Jun 21 SIGNATURE: Muna Cordero RN PATIENT NAME: Tori Cantor DATE: June 20, 2019 TIME: 1:24 PM PAGER/CONTACT #: [phone] [facility] CONSULTon 06-20-2019 CONSULT HNO ID: [id number] Author: Emelia AaronRn) MATT Centeno Service: Wound/Ostomy Author Type: Registered Nurse Type: Consults Filed: 06/20/2019 2:51 PM Note Text: WOUND CARE NURSE PROGRESS NOTE SERVICE DATE: 06/20/2019 SERVICE TIME: 1345 REASON FOR VISIT: Wound TIME SPENT (minutes): 45 Documentation from Wound Expert can be found in scanned documents. Patient seen by Pepper FLORES and wilman RN. Wound vac dressing changed to the left lower leg wounds as follows: applied 3 pieces of adaptic, 7 pieces alginate dressing, and 2 pieces of black foam dressings, secured with drape running at 125 mmHg. No leaks. Continue turn schedule, and offload heels with pillows. When discharged to SNF, bedside RN to remove wound vac dressing and foam and apply adaptic to wound beds and secure with gauze dressing, change daily until wound vac re-applied at the SNF. Wound care to follow until discharge, plan to change wound vac dressing on Thursday06/22/19 if patient has not been discharged. ? A photo was taken of the patient's wound(s)/stoma. Photos can be found under the Get Images tab on [employer]. ? Photos are uploaded by the wound/ostomy acute care clinical nurse specialist and may not be immediately available for viewing. Contact the wound and ostomy care department with questions. SIGNATURE: Emelia Centeno RN PATIENT NAME: Tori Cantor DATE: June 20, 2019 TIME: 2:45 PM CONTACT#: [id number] [facility] CONSULT PROGon 06-20-2019 CONSULT PROG HNO ID: [id number] Author: Lucita Del Real Service: Endocrinology Author Type: Physician Type: Consult Progress Note Filed: 06/20/2019 10:47 AM Note Text: ENDOCRINOLOGY CONSULT PROGRESS NOTE SERVICE DATE: 06/20/2019 SERVICE TIME: 8:45 AM Subjective INTERVAL HPI: Following for DM type 1. Adm with left ankle fracture after a fall, has left leg infection, cellulitis. Notes and orders reviewed. Patient refused insulin 06/14 am; was NPO for JOANNA; agreed to take NPH 26 units and humalog 10 units x1; readjusted doses as he is so afraid of hypoglycemia and will refuse to take his insulin! Went to OR again on 06/15. BS's improved Diet: DIET CARBOHYDRATE CONTROLLED p.o intake erratic, states following diet. Activity:Bedrest Review of Systems: PAIN ASSESSMENT: c/o left ankle/leg pain, severe at times GENERAL: has fatigue, malaise, no fever/chills RESPIRATORY: Negative for cough, hemoptysis, wheezing, COPD, dyspnea or shortness of breath CARDIOVASCULAR: Negative for chest pain, leg swelling, hypertension, CHF or palpitations GI: occ nausea, appetite decreased ENDOCRINE: Negative for cold or heat intolerance, polyuria or polydipsia. The remainder of the review of systems is negative. Current Facility-Administered Medications Medication Dose Route Frequency - lisinopril 10 mg tab(s) (ZESTRIL, PRINIVIL) 10 mg ORAL DAILY - pantoprazole DR 40 mg tab(s) (PROTONIX) 40 mg ORAL DAILY - enoxaparin 40 mg injection (LOVENOX) 40 mg SUBCUTANEOUS DAILY - NaCl 0.9% 3-5 mL 3-5 mL INTRAVENOUS q 12 H - ondansetron 4 mg tab(s) (ZOFRAN) 4 mg ORAL q 6 H PRN Or - ondansetron (PF) 4 mg injection (ZOFRAN) 4 mg INTRAVENOUS q 6 H PRN - bisacodyl 10 mg suppository (DULCOLAX) 10 mg RECTAL DAILY PRN - dextrose 40 % 15 g 15 g ORAL PRN Or - glucagon 1 mg injection (GLUCAGEN) 1 mg INTRAMUSCULAR PRN Or - dextrose 50 % 12.5 g injection 12.5 g INTRAVENOUS PRN - insulin lispro pen (rapid acting) (HumaLOG KWIKPEN) SUBCUTANEOUS w MEALS - DULoxetine 20 mg cap(s) (CYMBALTA) 20 mg ORAL BID - ceFAZolin iv piggyback 2 g in D5W (iso-osmotic) 100 mL (ANCEF) 2 g INTRAVENOUS q 8 HR - senna-docusate 8.6-50 mg 2 tablet (SENNA-S) 2 tablet ORAL BID - pregabalin 100 mg cap(s) (LYRICA) 100 mg ORAL TID - NaCl 0.9% iv infusion 100 mL/hr INTRAVENOUS CONTINUOUS - HYDROmorphone HCl 0.5 mg injection (DILAUDID) 0.5 mg INTRAVENOUS q 3 H PRN - oxyCODONE IR 15 mg tab(s) (ROXICODONE) 15 mg ORAL q 3 H PRN - NaCl 0.9% 10 mL 10 mL INTRAVENOUS q 12 H - NaCl 0.9% 20 mL 20 mL INTRAVENOUS PRN - acetaminophen 325-650 mg tab(s) (TYLENOL) 325-650 mg ORAL q 4 H PRN - insulin NPH human 20 Units injection pen (intermediate acting) (NovoLIN N, HumuLIN N) 20 Units SUBCUTANEOUS BID 8A/BEDTIME - insulin lispro 10 Units pen (rapid acting) (HumaLOG KWIKPEN) 10 Units SUBCUTANEOUS w MEALS Objective PHYSICAL EXAM: GENERAL: awake, alert; mild distress due to pain (wound care dressing pt) SKIN: no rash/ bruising OROPHARYNX: moist LUNGS: clear CVS: RRR EXTREMITIES: left foot in a bandage and external fixation frame; right foot charcot's deformity, no ulcers BP 122/81 Pulse 99 Temp (Src) 98.6 (Oral) Resp 20 Ht 5' 9 (1.75m) Wt 200 lb 9.9 oz (91.0kg) SpO2 99% BMI 29.61 kg/(m2). O2 Therapy: Room Air DATA: Diagnostic tests reviewed for today's visit: Most recent labs and imaging results. Last 24 hr BS reviewed. Recent Labs 06/20/19 0621 06/20/19 0252 06/19/19 2111 06/19/19 1622 06/19/19 1037 06/19/19 0633 06/19/19 0552 06/18/19 0146 GLUC -- 209* -- -- -- -- 355* -- 106* GLUCOSEMETER 168* -- 231* 130* 278* 388* -- < > -- < > = values in this interval not displayed. 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 Home Rx is Levemir 25 units bid and Novolog 14 units tid with SSI. Was on 70/30 from 03/09 till 05/18 (while incarcerated) Saw Endo in [place] in September,; due for appt? Started on lantus 25 units bid and Humalog 20 units tid here. BS still very high, increased Lantus to 30 units bid and Humalog to 24 unist tid changed to NPH 30 units bid and humalog 30 units qac tid pluc sorrection.Patient refused insulin 06/14 am; was NPO for JOANNA; then agreed to take NPH 26 units and humalog 10 units x1; readjusted doses as he is so afraid of hypoglycemia and refuses to take insulin; decreased NPH to bid and humalog 16 units qac tid plus correction on 06/14. Reduced NPH to 24-0-0-24 and Humalog to 14 units tid (-4 if eats <30%) from 06/17; BS low 06/18 afternoon; therefore decreased NPH to 20 units bid and humalog 10 units qac tid plus correction; cont rx Cellulitis/abscess left ankle, s/p debridement and external fixation of ankle fracture on 06/10. JOANNA normal. Went to OR again on 06/15 for debridement. Hyponatremia, renal on board, evidence of SIADH, Na 136(134)(136)(133)(130)(1 28)(124)(126) IVDU (intravenous drug user) POA: Yes Assessment AND Plan: hx Closed fracture of left ankle POA: Yes Assessment AND Plan: trimalleolar, 3 weeks ago after a fall Abnormal thyroid function test; TSH 8.2 due to non-thyroidal illness; Low free T3 , free T4 normal at 1.3 and reverse T3 pending SIGNATURE: Lucita Del Real MD PATIENT NAME: Tori Cantor DATE: June 20, 2019 TIME: 10:47 AM PAGER: [phone] Normal [facility] Comprehensive Panelon 2018 ALP [Catalytic activity/Vol] 117 U/L Normal 45-117 [facility] Comment on above: Performed By: #### U DRG2 #### [facility] [address] [place], [place] [address] Bilirubin [Mass/Vol] 0.3 mg/dL Normal 0.2-1.0 [facility] Comment on above: Performed By: #### U DRG2 #### [facility] [address] [place], [place] [address] Protein [Mass/Vol] 7.4 g/dL Normal 6.4-8.2 [facility] Comment on above: Performed By: #### U DRG2 #### [address] [address] Creatinine [Mass/Vol] 0.58 mg/dL Low 0.67-1.17 [facility] Comment on above: Performed By: #### U DRG2 #### [facility] [address] [place], [place] [address] ALT [Catalytic activity/Vol] 10 U/L Low 12-78 [facility] Comment on above: Performed By: #### U DRG2 #### [address] [address] AST [Catalytic activity/Vol] 16 U/L Normal 15-37 [facility] Comment on above: Performed By: #### U DRG2 #### [facility] [address] [place], [place] [address] Albumin [Mass/Vol] 1.9 g/dL Low 3.4-5.0 [facility] Comment on above: Performed By: #### U DRG2 #### [address] [address] Anion gap [Moles/Vol] 8 mmol/L Normal 8-16 [facility] Comment on above: Performed By: #### U DRG2 #### [facility] [address] [place], [place] [address] CO2 [Moles/Vol] 31 mmol/L Normal 21-32 [facility] Comment on above: Performed By: #### U DRG2 #### [facility] [address] [place], [place] [address] Urea nitrogen [Mass/Vol] 17 mg/dL Normal 7-18 [facility] Comment on above: Performed By: #### U DRG2 #### [facility] [address] [place], [place] [address] Calcium [Mass/Vol] 9.3 mg/dL Normal 8.5-10.1 [facility] Comment on above: Performed By: #### U DRG2 #### [facility] [address] [place], [place] [address] Glucose [Mass/Vol] 209 mg/dL High 70-99 [facility] Comment on above: Performed By: #### U DRG2 #### [facility] [address] [place], [place] [address] Chloride [Moles/Vol] 98 mmol/L Normal 98-107 [facility] Comment on above: Performed By: #### U DRG2 #### [facility] [address] [place], [place] [address] Potassium [Moles/Vol] 4.9 mmol/L Normal 3.5-5.1 [facility] Comment on above: Performed By: #### U DRG2 #### [address] [address] Sodium [Moles/Vol] 132 mmol/L Low 136-145 [facility] Comment on above: Performed By: #### U DRG2 #### [facility] [address] [place], [place] [address] Glucose Meteron 06-20-2019 Glucose [Mass/Vol] 119 mg/dL High 70-99 [facility] Comment on above: Result Comment: MATT VALENTE Performed By: #### G LMET ####[facility] [place], [place] [address] MDRD GFRon 06-20-2019 GFR/1.73 sq M predicted among non-blacks MDRD (S/P/Bld) [Vol rate/Area] mL/min/{1.73_m2} Normal >60mL/min/1. 73m2 [facility] Comment on above: Result Comment: If t he patient is , multiply the result by 1.210. Performed By: #### G FR #### [place] [address] PLAN OF CAREon 06-20-2019 PLAN OF CARE HNO ID: [id number] Author: Berta Jiang (Pharmacist) Service: Pharmacy Author Type: Pharmacist Type: Plan of Care Filed: 06/20/2019 3:30 PM Note Text: DISCHARGE MEDICATION REVIEW BY PHARMACY Patient Name: Tori Cantor Account #: Data Unavailable Admission Date: 06/09/2019 Date of Contact: June 20, 2019 Time of Contact: 3:30 PM Medication list was reviewed by a Pharmacist for drug interactions or drug related problems:Yes Below is a summary of pharmacist recommendations discussed with LIP: No Recommendations at this time from Discharge Medication List. Discharge Disposition: [facility] Jadyn Baer June 20, 2019 3:30 PM Pager: [phone] 06/20/2019 3:30 PM Medication List START taking these medications bisacodyl 10 mg Supp Commonly known as: DULCOLAX 1 Suppository by RECTAL route once daily as needed. ceFAZolin 2 gram/100 mL in dextrose (iso-osmotic) Commonly known as: ANCEF Inject 100 mL intravenously every 8 hours. insulin NPH human 100 unit/mL (3 mL) Inpn injection pen Commonly known as: NovoLIN N, HumuLIN N Inject 20 Units subcutaneously twice daily with meals. naloxone 4 mg/actuation nasal spray Use 1 spray in one nostril as needed for overdose. May repeat every 2 to 3 min in alternating nostrils until medical assistance is available ondansetron 4 mg tablet Commonly known as: ZOFRAN Take 1 tablet by mouth every 6 hours as needed. oxyCODONE IR 5 mg immediate release tablet Commonly known as: ROXICODONE Take 1-2 tablets by mouth every 4 hours as needed for up to 5 days. polyethylene glycol 3350 17 gram/dose powder Commonly known as: MIRALAX Take 17 g by mouth twice daily. senna-docusate 8.6-50 mg per tablet Commonly known as: SENNA-S Take 2 tablets by mouth twice daily. CHANGE how you take these medications DULoxetine 20 mg capsule Commonly known as: CYMBALTA Take 1 capsule by mouth twice daily. What changed: ? medication strength ? how much to take ? when to take this * insulin lispro 100 unit/mL pen Commonly known as: HumaLOG KWIKPEN Custom Scale If Blood Glucose (mg/dL) is Less than 100 0 units 101-150 0 units 151-175 2 units 176-200 3 units 201-225 4 units 226-250 5 units 251-275 6 units 276-300 7 units 301-325 8 units 326-350 9 units >350 10 units and Notify Provider What changed: ? medication strength ? how much to take ? how to take this ? when to take this ? additional instructions * insulin lispro 100 unit/mL Inpn Commonly known as: HumaLOG KWIKPEN Inject 10 Units subcutaneously w MEALS. What changed: You were already taking a medication with the same name, and this prescription was added. Make sure you understand how and when to take each. pregabalin 100 mg capsule Commonly known as: LYRICA Take 1 capsule by mouth three times daily for 30 days. What changed: medication strength * This list has 2 medication(s) that are the same as other medications prescribed for you. Read the directions carefully, and ask your doctor or other care provider to review them with you. CONTINUE taking these medications acetaminophen 325 mg tablet Commonly known as: TYLENOL Take 2 tablets by mouth every 6 hours as needed. lisinopril 10 mg tablet Commonly known as: ZESTRIL, PRINIVIL Take 1 tablet by mouth once daily for 15 days. LOVENOX 40 mg/0.4 mL Syrg Generic drug: enoxaparin PROTONIX 40 mg tablet Generic drug: pantoprazole DR STOP taking these medications blood sugar diagnostic test strip Commonly known as: ONETOUCH ULTRA TEST cyclobenzaprine 5 mg tablet Commonly known as: FLEXERIL doxycycline monohydrate 100 mg tablet Commonly known as: AVIDOXY ibuprofen 400 mg tablet Commonly known as: MOTRIN Insulin Dudley (Disposable) 31 gauge x 3/16 Ndle Commonly known as: BD Ultrafine III Mini Pen Lancets lancets LANTUS SOLOSTAR U-100 INSULIN 100 unit/mL (3 mL) Inpn Generic drug: insulin glargine LEVEMIR FLEXTOUCH U-100 INSULN 100 unit/mL (3 mL) Inpn injection Generic drug: insulin detemir U-100 levoFLOXacin 750 mg tablet Commonly known as: LEVAQUIN oxyCODONE-acetaminophen 5-325 mg tablet Commonly known as: PERCOCET Where to Get Your Medications [facility] [address] [place] [id number] - [address] - [phone] [facility] [address] [facility] [address] ? naloxone 4 mg/actuation nasal spray You can get these medications from any pharmacy Bring a paper prescription for each of these medications ? ceFAZolin 2 gram/100 mL in dextrose (iso-osmotic) ? oxyCODONE IR 5 mg immediate release tablet Normal [facility] PROGRESSon 06-20-2019 PROGRESS HNO ID: [id number] Author: Donnell Garcia Service: Infectious Disease Author Type: Physician Type: Progress Notes Filed: 06/20/2019 4:20 PM Note Text: INFECTIOUS DISEASE PROGRESS NOTE Patient Name: Tori Cantor Date: 06/20/2019 ASSESSMENT: 1. Left ankle fracture/ dislocation with large area of necrotic skin, fascia and muscle s/p I and D on 06/15/2019 2. Left distal tibial osteomyelitis due to MSSA per CT left leg 3. High grade MSSA bacteremia cleared 06/12, negative JOANNA 4. Type 1 diabetes PLAN: - plan for a 6 weeks course of IV cefazolin 2 grams Q 8 hours - end date jul 24, 2009 - COPAT on chart > 30 min spent in arranging copat - after 6 weeks of IV antibiotics, he will need oral suppression with PO cefadroxil 500 mg bid until the fracture heals INTERVAL HISTORY: ROS done with pt/RN and negative unless stated. Resting in bed Eating potatoes, meat and veggies Feels nauseous MEDICATIONS: reviewed. Current Facility-Administered Medications Medication Dose Route Frequency - lisinopril 10 mg tab(s) (ZESTRIL, PRINIVIL) 10 mg ORAL DAILY - pantoprazole DR 40 mg tab(s) (PROTONIX) 40 mg ORAL DAILY - enoxaparin 40 mg injection (LOVENOX) 40 mg SUBCUTANEOUS DAILY - NaCl 0.9% 3-5 mL 3-5 mL INTRAVENOUS q 12 H - ondansetron 4 mg tab(s) (ZOFRAN) 4 mg ORAL q 6 H PRN Or - ondansetron (PF) 4 mg injection (ZOFRAN) 4 mg INTRAVENOUS q 6 H PRN - bisacodyl 10 mg suppository (DULCOLAX) 10 mg RECTAL DAILY PRN - dextrose 40 % 15 g 15 g ORAL PRN Or - glucagon 1 mg injection (GLUCAGEN) 1 mg INTRAMUSCULAR PRN Or - dextrose 50 % 12.5 g injection 12.5 g INTRAVENOUS PRN - insulin lispro pen (rapid acting) (HumaLOG KWIKPEN) SUBCUTANEOUS w MEALS - DULoxetine 20 mg cap(s) (CYMBALTA) 20 mg ORAL BID - ceFAZolin iv piggyback 2 g in D5W (iso-osmotic) 100 mL (ANCEF) 2 g INTRAVENOUS q 8 HR - senna-docusate 8.6-50 mg 2 tablet (SENNA-S) 2 tablet ORAL BID - pregabalin 100 mg cap(s) (LYRICA) 100 mg ORAL TID - NaCl 0.9% iv infusion 100 mL/hr INTRAVENOUS CONTINUOUS - HYDROmorphone HCl 0.5 mg injection (DILAUDID) 0.5 mg INTRAVENOUS q 3 H PRN - oxyCODONE IR 15 mg tab(s) (ROXICODONE) 15 mg ORAL q 3 H PRN - NaCl 0.9% 10 mL 10 mL INTRAVENOUS q 12 H - NaCl 0.9% 20 mL 20 mL INTRAVENOUS PRN - acetaminophen 325-650 mg tab(s) (TYLENOL) 325-650 mg ORAL q 4 H PRN - insulin NPH human 20 Units injection pen (intermediate acting) (NovoLIN N, HumuLIN N) 20 Units SUBCUTANEOUS BID 8A/BEDTIME - insulin lispro 10 Units pen (rapid acting) (HumaLOG KWIKPEN) 10 Units SUBCUTANEOUS w MEALS PHYSICAL EXAM: Vital signs: BP 122/81 Pulse 99 Temp 37 ?C (98.6 ?F) (Oral) Resp 20 Ht 175.3 cm (5' 9) Wt 91 kg (200 lb 9.9 oz) SpO2 99% BMI 29.63 kg/m? Temp (24hrs), Av.2 ?C (98.9 ?F), Min:37 ?C (98.6 ?F), Max:37.3 ?C (99.1 ?F) General: alert, oriented, NAD Lungs: bilaterally clear to auscultation Heart: regular rate and rhythm Abdomen: soft, non tender, non distended, BS+ Extremities: left LE ext fix in place with blister on the plantar aspect of this left foot and wound vac in place Skin: no rash IV sites - wnl Lab data: reviewed Recent Labs 06/20/19 0252 06/19/19 0552 06/18/19 0146 WBC -- 8.90 11.83* HB -- 8.8* 8.8* PLT -- 648* 624* NA 132* 133* 136 K 4.9 5.0 4.3 CO2 31 30 31 BUN 17 13 12 CREAT 0.58* 0.55* 0.59* AST 16 15 11* ALT 10* 9* 8* TBILI 0.3 0.4 0.3 ALKPHOS 117 120* 128* Microbiology data: reviewed Imaging data: reviewed Donnell Garcia MD General and Orthopedics Infectious Diseases Pager: [phone] [facility] PROGRESS HNO ID: [id number] Author: Matthias Ndiaye Service: Nephrology Author Type: Physician Type: Progress Notes Filed: 06/20/2019 1:44 PM Note Text: [facility] Nephrology Progress Note Subjective/ 44 year old year old male who we are seeing in consultation for hyponatremia. ? Interval Hx: ?Seen and examined Increased PO intake No complaints today crea and BUN are down UO is noted ? ??NAEON ROS (-) unless noted above Objective/ 06/19/19 0844 06/19/19 1615 06/20/19 0000 06/20/19 0845 BP: 110/66 126/86 138/85 122/81 Pulse: 98 93 98 99 Resp: 18 18 16 20 Temp: 36.8 ?C (98.2 ?F) 36.6 ?C (97.9 ?F) 37.3 ?C (99.1 ?F) 37 ?C (98.6 ?F) TempSrc: Oral Temporal Temporal Oral SpO2: 93% 100% 95% 99% Weight: Height: 24HR INTAKE/OUTPUT: Intake/Output Summary (Last 24 hours) at 06/20/2019 1234 Last data filed at 06/20/2019 0934 Gross per 24 hour Intake 2980 ml Output 2020 ml Net 960 ml Constitutional: ?Alert, awake, no apparent distress Head: AT NC Neck: Supple, No JVD, no thyromegaly EENT: eyes nonicteric, mm dry Cardiovascular: ?RRR, good S1, S2. No murmurs, clicks, or rubs Respiratory: ?CTA without any wheezing, rhonchi, or rales, no accessory muscle use Abdomen: soft, NT, ND Extremity: +trace BLE peripheral edema, no tremors, wound vac to LLE Neurological: moves all 4 extremities. No focal neuro deficit Psychological: Cooperative throughout assessment Current Facility-Administered Medications Medication Dose Route Frequency - acetaminophen 325-650 mg tab(s) (TYLENOL) 325-650 mg ORAL q 4 H PRN - insulin NPH human 20 Units injection pen (intermediate acting) (NovoLIN N, HumuLIN N) 20 Units SUBCUTANEOUS BID 8A/BEDTIME - insulin lispro 10 Units pen (rapid acting) (HumaLOG KWIKPEN) 10 Units SUBCUTANEOUS w MEALS - NaCl 0.9% 10 mL 10 mL INTRAVENOUS q 12 H - NaCl 0.9% 20 mL 20 mL INTRAVENOUS PRN - HYDROmorphone HCl 0.5 mg injection (DILAUDID) 0.5 mg INTRAVENOUS q 3 H PRN - oxyCODONE IR 15 mg tab(s) (ROXICODONE) 15 mg ORAL q 3 H PRN - NaCl 0.9% iv infusion 100 mL/hr INTRAVENOUS CONTINUOUS - senna-docusate 8.6-50 mg 2 tablet (SENNA-S) 2 tablet ORAL BID - pregabalin 100 mg cap(s) (LYRICA) 100 mg ORAL TID - ceFAZolin iv piggyback 2 g in D5W (iso-osmotic) 100 mL (ANCEF) 2 g INTRAVENOUS q 8 HR - insulin lispro pen (rapid acting) (HumaLOG KWIKPEN) SUBCUTANEOUS w MEALS - DULoxetine 20 mg cap(s) (CYMBALTA) 20 mg ORAL BID - lisinopril 10 mg tab(s) (ZESTRIL, PRINIVIL) 10 mg ORAL DAILY - pantoprazole DR 40 mg tab(s) (PROTONIX) 40 mg ORAL DAILY - enoxaparin 40 mg injection (LOVENOX) 40 mg SUBCUTANEOUS DAILY - NaCl 0.9% 3-5 mL 3-5 mL INTRAVENOUS q 12 H - ondansetron 4 mg tab(s) (ZOFRAN) 4 mg ORAL q 6 H PRN Or - ondansetron (PF) 4 mg injection (ZOFRAN) 4 mg INTRAVENOUS q 6 H PRN - bisacodyl 10 mg suppository (DULCOLAX) 10 mg RECTAL DAILY PRN - dextrose 40 % 15 g 15 g ORAL PRN Or - glucagon 1 mg injection (GLUCAGEN) 1 mg INTRAMUSCULAR PRN Or - dextrose 50 % 12.5 g injection 12.5 g INTRAVENOUS PRN Data/ CBC, Coags, BMP, Mg, Phos Recent Labs 06/20/19 0252 06/19/19 0552 06/18/19 0146 WBC -- 8.90 11.83* HB -- 8.8* 8.8* HCT -- 27.6* 28.0* PLT -- 648* 624* NA 132* 133* 136 K 4.9 5.0 4.3 CHLOR 98 99 100 CO2 31 30 31 BUN 17 13 12 CREAT 0.58* 0.55* 0.59* GLUC 209* 355* 106* CA 9.3 8.9 8.9 Assessment/ 1. Hyponatremia (increased free H2O intake, poor osmole intake, pain with ADH increase) 2. 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 Sepsis 2/2 LLE cellulitis (S. Aureus bacteremia) 4. 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 Intravenous drug abuse 6. Left leg splint s/p ( left ankle # ) 7. Hypoalbuminemia Plan/ Na stable Same Rx ? S/p??debridement of left leg and ankle wound Continue oral h2o restriction (1200 ml/day) Continue to encourage protein intake ( Boost glucose control BID) Continue to encourage good PO intake ? Pain control will suppress the ADH release No other changes Will continue to follow? Okay to cory from renal standpoint when ready, rec check BMP in 5-7 days when dc Gaurav Ndiaye MD [facility] Normal [facility] PROGRESS HNO ID: [id number] Author: Remy Peraza Service: Pain Management Author Type: Physician Type: Progress Notes Filed: 06/20/2019 8:57 AM Note Text: Name: TORI CANTOR Age: [age] year old PAIN MANAGEMENT: s/p IANDD left tibia wounds; external fixation LLE, left trimalleolar ankle fracture/dislocation 05/27; Right foot Charcot deformity, DM neuropathy, IVDA 24H Pain Regimen: Acetaminophen 650 mg ?1 Cymbalta 20mg po bid Dilaudid 0.5mg IV x 0 Oxycodone 15 mg ? 5 Lyrica 100 mg x 1 Senna?S, 2 tabs twice a day MiraLAX daily Interval HPI; no new issues, afebrile VSS no new complaints, pain control is better, bowel movement ?1 status post debridement of left leg and ankle wound, application of wound VAC 06/15. Large area of necrotic skin, fascia and muscle noted, significant blood loss, approximately 500 mL. Leukocytosis resolved, H/H stable Antibiotic Therapy: Ancef and since 06/12 Subjective HPI: 34-year-old male with history of IV drug abuse, diabetes mellitus type 1 insulin-dependent with neuropathy, hypertension, chronic kidney disease, R Charcot foot, gastroparesis, tobacco abuse, recent left trimalleolar ankle fracture/dislocation (closed reduced in ED 05/27/19) presented 06/09 with increased drainage on the splint and worsening pain. Patient had been noncompliant with nonweightbearing restrictions. He also was seen in the ED 06/08 after removing his own splint; patient left AMA. Patient is a IV vancomycin. He underwent irrigation and debridement on 06/10 the wound VAC and external fixator placement. Blood cultures positive for MSSA bacteremia. JOANNA negative for infective endocarditis. CT left tibia and fibula showing concern for osteomyelitis, possible calf abscess and gas forming infection. Ongoing leukocytosis. Patient on Ancef Prior to admission patient was taking Lyrica 100 mg by mouth 3 times a day. He smokes 1 pack per day. He denies alcohol. He does use marijuana infrequently. He states he had done street drugs for 30 years and then he last used a while ago. He has a history of IV cocaine and methamphetamine. He also admits to history of frequent IV fentanyl use. 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 [place] 05/31/2019 2 05/31/2019 Oxycodone-Acetaminophen 5-325 6.00 1 Da Mil [id number] Pha ([id number]) 0 45.[address] [facility] [place] 01/31/2019 1 12/07/2018 Lyrica 150 MG Capsule 90.00 30 Ch Pet [id number] [facility] ([id number]) 1 2.88 LME [place] 12/07/2018 1 12/07/2018 Lyrica 150 MG Capsule 90.00 30 Ch Pet [id number] [facility] (2320) 0 2.88 [place] 10/05/2018 1 10/04/2018 Hydrocodone-Acetamin 5-325 MG 18.00 3 Ju And [id number] [facility] (2320) 0 30.00 [place] 03/03/2018 1 03/03/2018 Lyrica 150 MG Capsule 90.00 30 Ch Pet [id number] [facility] (2320) 0 2.88 [place] 10/28/2017 1 08/25/2017 Lyrica 150 MG Capsule 90.00 30 Ch Pet [id number] [facility] (2320) 1 2.88 [place]ME [place] 09/11/2017 1 08/25/2017 Lyrica 150 MG Capsule 90.00 30 Ch Pet [id number] [facility] (2320) 0 2.88 [place]ME [place] 07/04/2017 1 01/14/2017 Lyrica 150 MG Capsule 81.00 27 Ch Pet [id number] [facility] (2320) 2 2.88 LME [place] Current Facility-Administered Medications Medication Dose Route Frequency Provider Last Rate Last Dose - acetaminophen 325-650 mg tab(s) (TYLENOL) 325-650 mg ORAL q 4 H PRN Mo (Martha) APRN. DannyRETAINING ROOM CUTTER 650 mg at 06/18/19 0654 - insulin NPH human 20 Units injection pen (intermediate acting) (NovoLIN N, HumuLIN N) 20 Units SUBCUTANEOUS BID 8A/BEDTIME Lucita Ciltea 20 Units at 06/19/19 2125 - insulin lispro 10 Units pen (rapid acting) (HumaLOG KWIKPEN) 10 Units SUBCUTANEOUS w MEALS Lucita Ciltea 10 Units at 06/19/19 1144 - NaCl 0.9% 10 mL 10 mL INTRAVENOUS q 12 H Puneet Leonardo 10 mL at 06/19/192012 - NaCl 0.9% 20 mL 20 mL INTRAVENOUS PRN Puneet Leonardo - HYDROmorphone HCl 0.5 mg injection (DILAUDID) 0.5 mg INTRAVENOUS q 3 H PRN Remy Palmer Karmen 0.5 mg at 06/18/19 0654 - oxyCODONE IR 15 mg tab(s) (ROXICODONE) 15 mg ORAL q 3 H PRN Remy Palmer Karmen 15 mg at 06/20/19 0246 - NaCl 0.9% iv infusion 100 mL/hr INTRAVENOUS CONTINUOUS Bryson (Res) Daljit 100 mL/hr at 06/16/19 0150 100 mL/hr at 06/16/19 0150 - senna-docusate 8.6-50 mg 2 tablet (SENNA-S) 2 tablet ORAL BID Bryson (Rocky) Daljit 2 tablet at 06/19/192012 - pregabalin 100 mg cap(s) (LYRICA) 100 mg ORAL TID Bryson (Res) Pinkowski 100 mg at 06/19/192012 - ceFAZolin iv piggyback 2 g in D5W (iso-osmotic) 100 mL (ANCEF) 2 g INTRAVENOUS q 8 HR Bryson (Res) Gennyowski 200 mL/hr at 06/19/19 2353 2 g at 06/19/19 2353 - insulin lispro pen (rapid acting) (HumaLOG KWIKPEN) SUBCUTANEOUS w MEALS Bryson (Res) Gennyowski 7 Units at 06/19/19 1130 - DULoxetine 20 mg cap(s) (CYMBALTA) 20 mg ORAL BID Christopher (Res) Pinkowski 20 mg at 06/19/192012 - lisinopril 10 mg tab(s) (ZESTRIL, PRINIVIL) 10 mg ORAL DAILY Evangelister (Res) Pinkowski 10 mg at 06/19/19 08 - pantoprazole DR 40 mg tab(s) (PROTONIX) 40 mg ORAL DAILY Arturoopher (Res) Pinkowski 40 mg at 06/19/19 0851 - enoxaparin 40 mg injection (LOVENOX) 40 mg SUBCUTANEOUS DAILY Arturoopher (Res) Pinkowski 40 mg at 06/19/192012 - NaCl 0.9% 3-5 mL 3-5 mL INTRAVENOUS q 12 H Evangelister (Res) Pinkowski 5 mL at 06/16/192042 - ondansetron 4 mg tab(s) (ZOFRAN) 4 mg ORAL q 6 H PRN Evangelister (Res) Pinkowski Or - ondansetron (PF) 4 mg injection (ZOFRAN) 4 mg INTRAVENOUS q 6 H PRN Evangelister (Res) Pinkowski 4 mg at 06/19/19 2253 - bisacodyl 10 mg suppository (DULCOLAX) 10 mg RECTAL DAILY PRN Evangelister (Res) Pinkowski 10 mg at 06/19/19 1828 - dextrose 40 % 15 g 15 g ORAL PRN Evangelister (Res) Pinkowski 15 g at 06/16/192113 Or - glucagon 1 mg injection (GLUCAGEN) 1 mg INTRAMUSCULAR PRN Evangelister (Res) Pinkowski Or - dextrose 50 % 12.5 g injection 12.5 g INTRAVENOUS PRN Evangelister (Res) Gennyowski ibuprofen (MOTRIN) 400 mg tablet, Take 400 mg by mouth every 6 hours as needed., Disp: , Rfl: insulin glargine (LANTUS SOLOSTAR U-100 INSULIN) 100 unit/mL (3 mL) inpn, Inject 24 Units subcutaneously twice daily. While at [facility] , Disp: , Rfl: levoFLOXacin (LEVAQUIN) 750 mg tablet, Take 750 mg by mouth once daily. End date 06-23-19, Disp: , Rfl: enoxaparin (LOVENOX) 40 mg/0.4 mL syrg, Inject 40 mg subcutaneously every 24 hours., Disp: , Rfl: oxyCODONE-acetaminophen (PERCOCET) 5-325 mg tablet, Take 1 tablet by mouth every 6 hours as needed., Disp: , Rfl: insulin detemir U-100 (LEVEMIR FLEXTOUCH U-100 INSULN) 100 unit/mL (3 mL) inpn injection, Inject 30 Units subcutaneously twice daily. While at home, Disp: , Rfl: doxycycline monohydrate (AVIDOXY) 100 mg tablet, Take 1 tablet by mouth twice daily for 14 days. (Patient taking differently: Take 100 mg by mouth twice daily. End date 06-23-19 ), Disp: 28 tablet, Rfl: 0 acetaminophen (TYLENOL) 325 mg tablet, Take 2 tablets by mouth every 6 hours as needed., Disp: , Rfl: insulin lispro (HUMALOG KWIKPEN INSULIN) 100 unit/mL inpn, Inject 14 Units subcutaneously three times daily before meals. (Patient taking differently: Inject subcutaneously three times daily before meals. Sliding scale 100-150: 2 units 151-200: 4 units 201-250: 6 units 251-300: 8 units 301-350: 10 units 351-400: 12 units 401-450: 14 units <70 or >400 call MD ), Disp: , Rfl: lisinopril (ZESTRIL, PRINIVIL) 10 mg tablet, Take 1 tablet by mouth once daily for 15 days., Disp: 15 tablet, Rfl: 0, 05/26/[address] (PROTONIX) 40 mg tablet, Take 40 mg by mouth once daily. , Disp: , Rfl: , 05/26/2019 Lancets lancets, Use as instructed, Disp: 100 Each, Rfl: 11, Taking Insulin Dudley, Disposable, (BD ULTRAFINE III MINI PEN) 31 gauge x 3/16 ndle, USE WITH INSULIN PENS 4TIMES DAILY, Disp: 400 Each, Rfl: 3, Taking blood sugar diagnostic (ONETOUCH ULTRA TEST) test strip, CHECK BLOOD SUGARS 6 TIMES DAILY, Disp: 200 Strip, Rfl: 3, Taking DULoxetine (CYMBALTA) 30 mg capsule, Take 1 capsule by mouth once daily. (Patient taking differently: Take 120 mg by mouth once daily. ), Disp: , Rfl: 0, 05/25/2019 pregabalin (LYRICA) 150 mg capsule, Take 100 mg by mouth three times daily. , Disp: , Rfl: , Taking cyclobenzaprine (FLEXERIL) 5 mg tablet, Take 5 mg by mouth every 8 hours as needed., Disp: , Rfl: Social History Tobacco Use - Smoking status: Current Every Day Smoker Packs/day: 1.00 Types: Cigarettes - Smokeless tobacco: Never Used Substance Use Topics - Alcohol use: Yes Comment: socially - Drug use: Yes Types: Cocaine, Amphetamines Comment: hist of cocaine and marajuana use, fentanyl FAMILY HISTORY Problem Relation Age of Onset - Hypertension Mother - Diabetes Mother - Stroke Mother - Heart Mother CHF - Cataract Mother - Hypertension Father - COPD Father - Emphysema Father PAST SURGICAL HISTORY Procedure Laterality Date - IR VASCULAR ACCESS TEAM PICC INSERTION RADIO 06/17/2019 - NONE ROS: All of the following reviewed and negative except as noted below: GENERAL: no fever, chills, sweats, weight loss, fatigue, generalized weakness HEENT: no headache, vision changes, eye discomfort, hearing change, ear discomfort, sinus pain, nasal discharge or congestion, oral lesions, soreness, dental problem NECK: no adenopathy, discomfort, change in ROM CHEST: no shortness of breath, dyspnea on exertion, wheezing, cough, sputum production or chest pain HEART: no chest pain, palpitations, syncope ABDOMEN: no nausea, vomiting, constipation, diarrhea, abdominal pain : no dysuria, urgency, frequency, history of stones, incontinence NEURO: no confusion or alteration in consciousness, slurred speech, seizure, focal weakness EXTREMITIES: See history of present illness HEME: no new adenopathy, bruises, petechiae PSYCH: no depression, anxiety, agitation PAIN PSYCHIATRIC EXAM: GENERAL: alert, oriented to person, place, time JUDGMENT AND INSIGHT: intact APPEARANCE: neatly groomed DEMEANOR: coooperative, not hostile, mistrustful, preoccupied, or demanding ACTIVITY: normal, not hyperactive or hypoactive, no tremors, tics EYE CONTACT: normal SPEECH: normal, rate, volume, articulation, coherence, spontaneity MOOD: normal, without overt sadness, grief, anxiety, appropriate to situation IDEATION: normal and without suicidal or homicidal ideation MEMORY: intact PHYSICAL EXAMINATION: GENERAL: well nourished and developed; no acute distress; alert and oriented x 3; intact judgement and insight HEENT: no evidence of trauma; cranial nerves intact; eyes clear EOMI; no hearing deficits apparent; nasal passages unremarkable; throat and mucous membranes clear NECK: supple without lymphadenopathy; no JVD; no thyromegaly CHEST: clear bilaterally to auscultation; normal chest movement; no rales or rhonchi HEART: regular rate and rhythm, normal S1 and S2, no murmurs, clicks, rubs, or gallops ABDOMEN: soft; nondistended; bowel sounds present; no hepatomegaly; no splenomegaly; no tenderness EXTREMITIES: no evidence of clubbing; no cyanosis; left leg with wound VAC; intact external fixator 1+ edema NEURO: cranial nerves intact; no focal deficits; no confusion; no tremor; sensorium normal SKIN: no decubitus lesions HEME: no bruising; no adenopathy PSYCH: no evidence of depression; no anxiety; no agitation; no apparent hallucinations BP 138/85 Pulse 98 Temp 37.3 ?C (99.1 ?F) (Temporal) Resp 16 Ht 175.3 cm (5' 9) Wt 91 kg (200 lb 9.9 oz) SpO2 95% BMI 29.63 kg/m? BMI 29.63 kg/(m2) Date 06/14/19699 - 06/15/1960 Shift 2519-5626 9859-8420 4230-1124 24 Hour Total INTAKE Shift Total OUTPUT Urine 1300 1300 Shift Total 1300 1300 Weight (kg) 91 91 91 91 Date 06/13/19699 - 06/14/1965806/14/19699 - 06/15/19 0659 Shift 6795-1129 9681-6644 0456-6771 24 Hour Total 6109-6632 5923-7260 8757-4830 24 Hour Total INTAKE IV 700 700 Volume (mL) (NaCl 0.9% iv infusion) 600 600 Volume (mL) (ceFAZolin iv piggyback 2 g in D5W (iso-osmotic) 100 mL (ANCEF)) 100 100 Shift Total 700 700 OUTPUT Urine 194 068 1870 1300 1300 Void (ml) 138 336 9108 1300 1300 Drains 0 0 Negative Pressure: Output (mL) (Negative Pressure Wound Therapy Ankle -Left) 0 0 # of BMs Number of BMs 0 x 0 x Shift Total 400 750 0 1150 1300 1300 Weight (kg) 91 91 91 91 91 91 91 91 ABNORMAL/NEW FINDINGS: NONE RADIOLOGY/DIAGNOSTICS: LABORATORY: CBC: Recent Labs 06/19/19 0552 WBC 8.90 RBC 3.05* HB 8.8* HCT 27.6* PLT 648* MCV 90.5 MCH 28.9 MPV 9.5 RDW 14.4 CMP: Recent Labs 06/19/19 0552 NA 133* K 5.0 CHLOR 99 CO2 30 BUN 13 CREAT 0.55* GLUC 355* TPROT 7.1 CA 8.9 TBILI 0.4 ALKPHOS 120* ALT 9* AST 15 ANION 9 Heme: No results for input(s): RETICP, ABSRETIC, LD, VIKRAM, FE, TIBC, TRANSFERSAT in the last 24 hours. 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 ([facility]) Hypertension Gerd (Gastroesophageal Reflux Disease) Microalbuminuria History of Diabetic Gastroparesis Diabetic Polyneuropathy Associated With Type 1 Diabetes Mellitus ([facility]) Depression With Anxiety Charcot's Joint of Right Foot Hyperlipidemia Hep C W/O Coma, Chronic ([facility]) History of Drug Abuse in Remission ([facility]) Ivdu (Intravenous Drug User) Tobacco Abuse Left Ankle Joint Deformity Hyperglycemia Nicotine use disorder, F17.2 Closed Fracture of Left Ankle Sepsis ([facility]) PLAN: Status post debridement of left leg and ankle wounds, external fixator placement and wound VAC 06/10; repeat debridement, wound VAC placement 06/15 Left trimalleolar ankle fracture/dislocation on 05/27; noncompliant with nonweightbearing and wound care On Ancef for MSSA bacteremia; concern for osteomyelitis of tibia and fibula. JOANNA negative for endocarditis. CT also demonstrated concern for abscess along posterior tibia. History of polysubstance abuse including IV drug abuse; patient denies recent abuse Dilaudid 0.5 mg IV every 3 hours when necessary breakthrough pain Oxycodone 15 milligram every 3 hours when necessary severe pain Cymbalta 20 mg twice a day Change Lyrica 100 mg by mouth 3 times a day Senna S2 by mouth twice a day, MiraLAX daily, Dulcolax suppository as needed Oxycodone prescription placed in chart. Plans to return to senior living facility at discharge noted Remy Peraza M.D. [facility] PROGRESS HNO ID: [id number] Author: Gareth Uriarte Service: Orthopaedic Surgery Author Type: Physician Type: Progress Notes Filed: 06/20/2019 7:36 AM Note Text: ORTHOPAEDIC SURGERY DAILY PROGRESS NOTE Patient Name: Tori Cantor Date of Evaluation: 06/20/2019 Admission Date: 06/09/2019 Time of Evaluation: 6:14 AM ASSESSMENT: 44yo M POD#5 s/p IANDD L leg/ankle wounds, application of wound vac, POD#10 s/p IANDD L leg/ankle wounds, application of ex-fix and application of wound vac PLAN: - PT/OT: Non Weight Bearing left lower - Appreciate Pain management and medicine recommendations - DVT Prophylaxis: Lovenox 40mg SQ daily per primary - IV Abx: Ancef Q8H per primary for MSSA bacteremia - Dressing: MORGAN/wound vac INTERVAL HPI: Patient monitored, no new events overnight. Patient states that they are comfortable. OBJECTIVE: BP 138/85 Pulse 98 Temp 37.3 ?C (99.1 ?F) (Temporal) Resp 16 Ht 175.3 cm (5' 9) Wt 91 kg (200 lb 9.9 oz) SpO2 95% BMI 29.63 kg/m? Intake/Output Summary (Last 24 hours) No intake/output data recorded. Exam: General: NAD, AAOx3 Extremities: Left Lower Extremity: Dressing clean, dry and intact. Surgical site no drainage and skin edges well approximated. SILT S/S/SP/DP/T Motor intact DF/PF/EHL PT/DP pulse palpable, foot warm with pulses Compartments soft, compressible. Tolerates passive stretch of digits. Labs: BMP: Sodium 132 06/20/2019 Potassium 4.9 06/20/2019 Chloride 98 06/20/2019 CO2 31 06/20/2019 BUN 17 06/20/2019 Creatinine 0.58 06/20/2019 Glucose 209 06/20/2019 CBC: WBC 8.90 06/19/2019 Hemoglobin 8.8 06/19/2019 Hematocrit 27.6 06/19/2019 Platelet Count 648 06/19/2019 Sarath Laureano MD Orthopaedic Surgery, PGY-5 Pager: [phone] Please page [phone] from 5p-6a and on weekends for any issues. 06/20/2019 6:14 AM Agree with resident assessment and plan. Discharge planning. Normal [facility] THERAPY NTon 06-20-2019 THERAPY NT HNO ID: [id number] Author: Cesia AaronOtr/Diana Shipley Service: Occupational Therapy Author Type: Occupational Therapist Type: Therapy (PT/OT/Speech/Resp) Filed: 06/20/2019 11:58 AM Note Text: Occupational Therapy Treatment SERVICE DATE: 06/20/2019 SERVICE TIME: 1125 to 1140 ROOM: [id number] Recommended Discharge Disposition: Subacute/SNF Justification For Post Acute Needs: Anticipate that patient will require daily (5x/wk) skilled therapy in a post-acute facility setting at the time of acute hospital discharge;Willing to participate;Motivated OT Recommendations to Nursing: Bedside Commode for Toileting;OOB for meals;With assist of 1 person Equipment: Wheeled Walker OT 6 Clicks Score: 15 Precautions/Activity Restrictions: Weight Bearing Restrictions Extremity With Weight Bearing Restricted: Left Lower Extremity Left Lower Extremity Weight Bearing Status: NWB ASSESSMENT: Patient motivated to participate in therapy session. Able to transfer over to commode with use of walker. He is unsteady on his feet and is noted to be a high fall risk. Continues to requires a lot of physical assistance to assist with LB dressing/bathing. Patient is appropriate from skilled therapy services at d/c. Patient Disposition at Start of Session: Supine in Bed;Call Hines in Reach Patient Disposition at End of Session: Supine in Bed;Call Hines in Reach Tolerated Full Session Fatigue;Pain Occupational Therapy Problem List: Pain;Safety Deficits;Impaired Self Care;Decreased Activity Tolerance;Functional Mobility Impairment Patient /Caregiver Goals: Care For Self Goals for Plan of Care: Upper Body Dressing with: Stand By Assistance Lower Body Bathing with: Minimal Assistance Lower Body Dressing with: Minimal Assistance Toilet Hygiene with: Minimal Assistance Toilet Transfer with: Stand By Assistance Tolerate (minutes of functional activity): 25(of OOB activity) Functional Activity with: Stand By Assistance Demonstrate Competence With Education with: (NWB L LE during transfers) Progress Toward Goals: Progressing as expected Rehab Potential: Good PLAN: Treatment Frequency (times per week): 3(1-3x/week) Current admission Treatment Interventions: Education;Self Care / Home Management Plan of Care developed with: Patient TREATMENT INTERVENTIONS: Therapy Diagnosis: Reduced mobility-other;Decreased activities of daily living (ADL) Interventions Provided: Self Fpc Management (09051) Self Fpc Management (02136) Treatment Minutes: 15 1 unit Skilled Intervention(s):Educated on the role of OT in the acute care setting. Instructed in post-op instructions during ADLs after IANDD and wound vac placement. Reviewed NWB LLE during functional activity. Instructed in energy conservation during self care and functional transfers, provided increased time and rest breaks due to pain. Education in fall prevention and walker management during toileting activity. Facilitated BSC transfer, provided step by step direction on proper hand and body placement and safety while reaching back for stable surface. Min verbal direction on safety with wound vac during functional transfers. Educated patient on the benefit of receiving continued OT services at d/c to increase independence with self care and functional transfers. Total Timed Code Treatment Minutes: 15 Total Treatment Time (minutes): 15 SUBJECTIVE: Current Hospital Course: Chart reviewed; . 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 I think I should sit up! Home Environment Patient Lives With: Facility Care(SNF) Assistance Available: 24 Hour Prior Functional Level: Required Assistance Assistance Required With: Self Care;Safety;Laundry;Clean ing;Meals Prior Functional Level Comments: working with PT/OT at facility OBJECTIVE: Cognition/Communication Deficits Responsiveness: Alert Follows Commands: 3-step Commands Cueing to Follow Commands: Minimum Attention Deficits: Distractible Executive Function Deficits: Safety Awareness;Insight to Deficits Insight to Deficits: Minimal impairment Safety Awareness Deficit: Minimal impairment CURRENT FUNCTIONAL STATUS: Current Activities of Daily Living Assist Level Feeding Set Up Grooming Set Up Bathing Upper Body Set Up Bathing Lower Body Moderate Assistance Dressing Upper Body Set Up Dressing Lower Body Moderate Assistance Toileting Moderate Assistance Functional Mobility Assist Level Rolling Supine to Sit Contact Guard Assistance Sit to Supine Contact Guard Assistance Scooting Contact Guard Assistance Sit to Stand Contact Guard Assistance Stand to Sit Contact Guard Assistance Bed to Chair Toilet/Commode Minimal Assistance Functional Mobility Contact Guard Assistance Wheeled Walker Functional Mobility Comments: 4-5 steps over to commode Range of Motion: WFL Strength: WFL Please see discipline specific clinical documentation flowsheet for complete details for this therapy evaluation/treatment. SIGNATURE: ANGELA Chopra/Jens PATIENT NAME: Tori Cantor DATE: June 20, 2019 TIME: 11:43 AM Normal [facility] THERAPY NT HNO ID: [id number] Author: Kaveh Ha) Joshua Service: Physical Therapy Author Type: Self Contained Behavior Unit Teacher Type: Therapy (PT/OT/Speech/Resp) Filed: 06/20/2019 9:18 AM Note Text: ----- Attestation signed by James AaronPt) CHINTAN Pope at 06/20/2019 11:11 AM I reviewed and agree with the documentation corresponding to this therapy visit. SIGNATURE: James Pope PT DATE: June 20, 2019 TIME: 11:11 AM ----- Physical Therapy Treatment SERVICE DATE: 06/20/2019 SERVICE TIME: 827 to 846 ROOM: [id number] Recommended Discharge Disposition: Subacute/SNF Justification For Post Acute Needs: Anticipate that patient will require daily (5x/wk) skilled therapy in a post-acute facility setting at the time of acute hospital discharge;Medically complex PT Recommendations to Nursing: Transfer to/from chair;OOB for Meals;With assist of 1 person Device: Wheeled Walker PT 6 Clicks Score: 10 Precautions/Activity Restrictions: Weight Bearing Restrictions Extremity With Weight Bearing Restricted: Left Lower Extremity Left Lower Extremity Weight Bearing Status: NWB ASSESSMENT : Patient presents with ongoing with PT goals -- Patient agrees to treatment at this time, refuses to perform any ROM to left lower extremity or to sit at edge of bed or getting OOB in chair. Patient performs supine exercises with good quad control on RLE. Patient continues to be recommended for subacute/SNF to improve strength, balance, endurance, increased ambulation distances with normalize gait pattern, and increased independence with functional task performance/mobility to prior level of function. Patient Disposition at Start of Session: Supine in Bed;Call Hines in Reach Patient Disposition at End of Session: Supine in Bed;Call Hines in Reach;Nursing Personnel Present Tolerance Limited By Pain Physical Therapy Problem List: Decreased Activity Tolerance;Functional Mobility Impairment;Decreased Range Of Motion;Decreased Strength;Balance Impaired;Pain;Safety Deficits Patient /Caregiver Goals: Go To Rehab Goals for Plan of Care: Transfer supine to/from sit with: Stand By Assistance Transfer sit to/from stand with: Stand By Assistance Ambulate with: Contact Guard Assistance Distance: 20x2 Device: Wheeled Walker Goal: 2x10 reps LLE AROM exercises Progress Toward Goals: Progressing slower than expected Due To: pain, declining out of bed activity Rehab Potential: Fair PLAN: Treatment Frequency (times per week): 7(3-7) Current admission Treatment Interventions: Education;Balance Training;Joint Mobility;Strengthening;Fu nctional Mobility Training Plan of Care developed with: Patient TREATMENT INTERVENTIONS: Therapy Diagnosis: Reduced mobility-other;Abnormalit ies of gait and mobility-other Interventions Provided: Therapeutic Exercise (31375) Therapeutic Exercise (09875) Treatment Minutes: 19 1 unit Skilled Intervention(s): Patient performs supine exercises in bed 10 reps of each to right lower extremity (ankle pumps, glute sets, quad sets, abd/add, SAQ, SLR and heel slides) Patient requires verbal cuing to move through full ROM to maximize strengthening and ROM. Patient requires increased encouragement to get OOB in chair or ambulation. Patient refuses to perform with any movement to left lower extremity. Slow movement throughout and cuing needed to stay on tasks, secondary to patient distraction, requiring increased time to complete strengthening tasks. Total Timed Code Treatment Minutes: 19 Total Treatment Time (minutes): 19 SUBJECTIVE: Current Hospital Course: Chart reviewed and no significant medical updates relevant to therapy were noted Reason for Physical Therapy Consult : eval and treat Relevant Past Medical History: DM 1, L ankle fx, sepsis, IV drug use, HLD, Hep C, GERd Patient Report: Patient states 12/10 pain level, nursing is aware. Home Environment Patient Lives With: Facility Care(SNF) Assistance Available: 24 Hour Prior Functional Level: Required Assistance Assistance Required With: Self Care;Safety;Laundry;Clean ing;Meals Prior Functional Level Comments: working with PT/OT at facility OBJECTIVE: CURRENT FUNCTIONAL STATUS: Current Functional Mobility Assist Level Additional Information Rolling Supine to Sit Sit to Supine Scooting Contact Guard Assistance(to HOB) Sit to Stand Stand to Sit Bed to Chair Toilet/Commode Gait Stairs Curb Step Car Transfer -M: 2: Bed activities / dependent transfer Please see discipline specific clinical documentation flowsheet for complete details for this therapy evaluation/treatment. SIGNATURE: TIMO Das PATIENT NAME: Tori Cantor DATE: June 20, 2019 TIME: 8:51 AM I reviewed and agree with the documentation corresponding to this therapy visit. I attest that I was present, not working on other tasks, and directing the student during this visit. I have reviewed and agree with the above documentation of this student. Kaveh Lewis PTA SIGNATURE: Kaveh Lewis PTA DATE: June 20, 2019 TIME: 9:17 AM Normal [facility] CONSULT PROGon 06-19-2019 CONSULT PROG HNO ID: [id number] Author: Lucita Del Real Service: Endocrinology Author Type: Physician Type: Consult Progress Note Filed: 06/19/2019 4:21 PM Note Text: ENDOCRINOLOGY CONSULT PROGRESS NOTE SERVICE DATE: 06/19/2019 SERVICE TIME: 11:03 AM Subjective INTERVAL HPI: Following for DM type 1. Adm with left ankle fracture after a fall, has left leg infection, cellulitis. Notes and orders reviewed. Patient refused insulin 06/14 am; was NPO for JOANNA; agreed to take NPH 26 units and humalog 10 units x1; readjusted doses as he is so afraid of hypoglycemia and will refuse to take his insulin! Went to OR again on 06/15. Diet: DIET CARBOHYDRATE CONTROLLED p.o intake erratic, states following diet. Activity:Bedrest Review of Systems: PAIN ASSESSMENT: c/o left ankle/leg pain, severe at times GENERAL: has fatigue, malaise, no fever/chills RESPIRATORY: Negative for cough, hemoptysis, wheezing, COPD, dyspnea or shortness of breath CARDIOVASCULAR: Negative for chest pain, leg swelling, hypertension, CHF or palpitations GI: occ nausea, appetite decreased ENDOCRINE: Negative for cold or heat intolerance, polyuria or polydipsia. The remainder of the review of systems is negative. Current Facility-Administered Medications Medication Dose Route Frequency - lisinopril 10 mg tab(s) (ZESTRIL, PRINIVIL) 10 mg ORAL DAILY - pantoprazole DR 40 mg tab(s) (PROTONIX) 40 mg ORAL DAILY - enoxaparin 40 mg injection (LOVENOX) 40 mg SUBCUTANEOUS DAILY - NaCl 0.9% 3-5 mL 3-5 mL INTRAVENOUS q 12 H - ondansetron 4 mg tab(s) (ZOFRAN) 4 mg ORAL q 6 H PRN Or - ondansetron (PF) 4 mg injection (ZOFRAN) 4 mg INTRAVENOUS q 6 H PRN - bisacodyl 10 mg suppository (DULCOLAX) 10 mg RECTAL DAILY PRN - dextrose 40 % 15 g 15 g ORAL PRN Or - glucagon 1 mg injection (GLUCAGEN) 1 mg INTRAMUSCULAR PRN Or - dextrose 50 % 12.5 g injection 12.5 g INTRAVENOUS PRN - insulin lispro pen (rapid acting) (HumaLOG KWIKPEN) SUBCUTANEOUS w MEALS - DULoxetine 20 mg cap(s) (CYMBALTA) 20 mg ORAL BID - ceFAZolin iv piggyback 2 g in D5W (iso-osmotic) 100 mL (ANCEF) 2 g INTRAVENOUS q 8 HR - senna-docusate 8.6-50 mg 2 tablet (SENNA-S) 2 tablet ORAL BID - pregabalin 100 mg cap(s) (LYRICA) 100 mg ORAL TID - NaCl 0.9% iv infusion 100 mL/hr INTRAVENOUS CONTINUOUS - HYDROmorphone HCl 0.5 mg injection (DILAUDID) 0.5 mg INTRAVENOUS q 3 H PRN - oxyCODONE IR 15 mg tab(s) (ROXICODONE) 15 mg ORAL q 3 H PRN - NaCl 0.9% 10 mL 10 mL INTRAVENOUS q 12 H - NaCl 0.9% 20 mL 20 mL INTRAVENOUS PRN - acetaminophen 325-650 mg tab(s) (TYLENOL) 325-650 mg ORAL q 4 H PRN - insulin NPH human 20 Units injection pen (intermediate acting) (NovoLIN N, HumuLIN N) 20 Units SUBCUTANEOUS BID 8A/BEDTIME - insulin lispro 10 Units pen (rapid acting) (HumaLOG KWIKPEN) 10 Units SUBCUTANEOUS w MEALS Objective PHYSICAL EXAM: GENERAL: awake, alert; mild distress due to pain (wound care dressing pt) SKIN: no rash/ bruising OROPHARYNX: moist LUNGS: clear CVS: RRR EXTREMITIES: left foot in a bandage and external fixation frame; right foot charcot's deformity, no ulcers BP 110/66 Pulse 98 Temp (Src) 98.2 (Oral) Resp 18 Ht 5' 9 (1.75m) Wt 200 lb 9.9 oz (91.0kg) SpO2 93% BMI 29.61 kg/(m2). O2 Therapy: Room Air DATA: Diagnostic tests reviewed for today's visit: Most recent labs and imaging results. Last 24 hr BS reviewed. Recent Labs 06/19/19 1037 06/19/19 0633 06/19/19 0552 06/18/19 2110 06/18/19 1632 06/18/19 1555 06/18/19 0146 06/17/19 0331 GLUC -- -- 355* -- -- -- -- 106* -- 181* GLUCOSEMETER 278* 388* -- 250* 80 66* < > -- < > -- < > = values in this interval not displayed. 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 Home Rx is Levemir 25 units bid and Novolog 14 units tid with SSI. Was on from 03/09 till 05/18 (while incarcerated) Saw Carmelo in [place] in September,; due for appt? Started on lantus 25 units bid and Humalog 20 units tid here. BS still very high, increased Lantus to 30 units bid and Humalog to 24 unist tid changed to NPH 30 units bid and humalog 30 units qac tid pluc sorrection.Patient refused insulin 06/14 am; was NPO for JOANNA; then agreed to take NPH 26 units and humalog 10 units x1; readjusted doses as he is so afraid of hypoglycemia and refuses to take insulin; decreased NPH to bid and humalog 16 units qac tid plus correction on 06/14. Reduced NPH to 24-0-0-24 and Humalog to 14 units tid (-4 if eats <30%) from 06/17; BS low 06/18 afternoon; therefore decreased NPH to 20 units bid and humalog 10 units qac tid plus correction; cont rx Cellulitis/abscess left ankle, s/p debridement and external fixation of ankle fracture on 06/10. JOANNA normal. Went to OR again on 06/15 for debridement. Hyponatremia, renal on board, evidence of SIADH, Na 136(134)(136)(133)(130)(1 28)(124)(126) IVDU (intravenous drug user) POA: Yes Assessment AND Plan: hx Closed fracture of left ankle POA: Yes Assessment AND Plan: trimalleolar, 3 weeks ago after a fall Abnormal thyroid function test; TSH 8.2 could be non-thyroidal illness; with check free T4 and reverse T3 SIGNATURE: Lucita Del Real MD PATIENT NAME: Tori Cantor DATE: June 19, 2019 TIME: 3:26 PM PAGER: [phone] Normal [facility] Comprehensive Panelon 2018 ALP [Catalytic activity/Vol] 120 U/L High 45-117 [facility] Comment on above: Performed By: #### H A1C #### [place] [address] Bilirubin [Mass/Vol] 0.4 mg/dL Normal 0.2-1.0 [facility] Comment on above: Performed By: #### H A1C #### [place] [address] Creatinine [Mass/Vol] 0.55 mg/dL Low 0.67-1.17 [facility] Comment on above: Performed By: #### H A1C #### [address] [address] Protein [Mass/Vol] 7.1 g/dL Normal 6.4-8.2 [facility] Comment on above: Performed By: #### H A1C #### [facility] [address] [place], [place] [address] ALT [Catalytic activity/Vol] 9 U/L Low 12-78 [facility] Comment on above: Performed By: #### H A1C #### [address] [address] AST [Catalytic activity/Vol] 15 U/L Normal 15-37 [facility] Comment on above: Performed By: #### H A1C #### [facility] [address] [place], [place] [address] Albumin [Mass/Vol] 1.7 g/dL Low 3.4-5.0 [facility] Comment on above: Performed By: #### H A1C #### [facility] [address] [place], [place] [address] Anion gap [Moles/Vol] 9 mmol/L Normal 8-16 [facility] Comment on above: Performed By: #### H A1C #### [facility] [address] [place], [place] [address] CO2 [Moles/Vol] 30 mmol/L Normal 21-32 [facility] Comment on above: Performed By: #### H A1C #### [facility] [address] [place], [place] [address] Glucose [Mass/Vol] 355 mg/dL High 70-99 [facility] Comment on above: Performed By: #### H A1C #### [facility] [address] [place], [place] [address] Urea nitrogen [Mass/Vol] 13 mg/dL Normal 7-18 [facility] Comment on above: Performed By: #### H A1C #### [facility] [address] [place], [place] [address] Calcium [Mass/Vol] 8.9 mg/dL Normal 8.5-10.1 [facility] Comment on above: Performed By: #### H A1C #### [facility] [address] [place], [place] [address] Chloride [Moles/Vol] 99 mmol/L Normal 98-107 [facility] Comment on above: Performed By: #### H A1C #### [facility] [address] [place], [place] [address] Potassium [Moles/Vol] 5.0 mmol/L Normal 3.5-5.1 [facility] Comment on above: Performed By: #### H A1C #### [facility] [address] [place], [place] [address] Sodium [Moles/Vol] 133 mmol/L Low 136-145 [facility] Comment on above: Performed By: #### H A1C #### [facility] [address] [place] [address] Free T3on 06-19-2019 Free T3 [Mass/Vol] 1.9 pg/mL Low 2.2-4.0 [facility] Comment on above: Performed By: #### H A1C #### [facility] [address] [place] [address] Free Thyroxineon 06-19-2019 Free T4 [Mass/Vol] 1.33 ng/dL Normal 0.76-1.46 [facility] Comment on above: Performed By: #### H A1C #### [facility] [address] [place] [address] Hemogramon 06-19-2019 Erythrocyte distribution width (RBC) [Ratio] 14.4 % Normal 11.6-14.4 [facility] Comment on above: Performed By: #### H A1C #### [facility] [address] [place] [address] Hematocrit (Bld) [Volume fraction] 27.6 % Low 40.1-51.0 [facility] Comment on above: Performed By: #### H A1C #### [facility] [address] [place] [address] Hemoglobin (Bld) [Mass/Vol] 8.8 g/dL Low 13.7-17.5 [facility] Comment on above: Performed By: #### H A1C #### [facility] [address] [place] [address] MCH (RBC) [Entitic mass] 28.9 pg Normal 25.7-32.2 [facility] Comment on above: Performed By: #### H A1C #### [facility] [address] [place] [address] MCHC (RBC) [Mass/Vol] 31.9 % Low 32.3-36.5 [facility] Comment on above: Performed By: #### H A1C #### [facility] [address] [place] [address] MCV (RBC) [Entitic vol] 90.5 fL Normal 83.2-95.6 [facility] Comment on above: Performed By: #### H A1C #### [facility] [address] [place], [place] [address] Platelet mean volume (Bld) [Entitic vol] 9.5 fL Normal 8.7-12.0 [facility] Comment on above: Performed By: #### H A1C #### [facility] [address] [place], [place] [address] Platelets (Bld) [#/Vol] 648 thou/cmm High 141-365 [facility] Comment on above: Performed By: #### H A1C #### [facility] [address] [place] [address] RBC (Bld) [#/Vol] 3.05 mil/cmm Low 4.63-6.08 [facility] Comment on above: Performed By: #### H A1C #### [facility] [address] [place] [address] RDW SD 47.7 fl High 36.1-45.8 [facility] Comment on above: Performed By: #### H A1C #### [facility] [address] [place], [place] [address] WBC (Bld) [#/Vol] 8.90 thou/cmm Normal 4.23-9.07 [facility] Comment on above: Performed By: #### H A1C #### [facility] [address] [place] [address] PROGRESSon 06-19-2019 PROGRESS HNO ID: [id number] Author: Ant Meng Service: Nephrology Author Type: Physician Type: Progress Notes Filed: 06/19/2019 12:54 PM Note Text: [facility] Nephrology Progress Note Subjective/ 44 year old year old male who we are seeing in consultation for hyponatremia. ? Interval Hx: ?Seen and examined Increased PO intake Pain is better controlled NAEON ROS (-) unless noted above 06/18/19 1636 06/18/19 2146 06/19/19 0500 06/19/19 0844 BP: 131/72 146/92 139/90 110/66 Pulse: 93 97 93 98 Resp: 18 18 18 18 Temp: 37 ?C (98.6 ?F) 37.1 ?C (98.8 ?F) 36.6 ?C (97.9 ?F) 36.8 ?C (98.2 ?F) TempSrc: Temporal Temporal Oral Oral SpO2: 94% 99% 98% 93% Weight: Height: 24HR INTAKE/OUTPUT: Intake/Output Summary (Last 24 hours) at 06/19/2019 1254 Last data filed at 06/19/2019 0844 Gross per 24 hour Intake 1340 ml Output 1650 ml Net -310 ml Constitutional: Alert, awake, no apparent distress Head: AT NC Neck: Supple, No JVD, no thyromegaly EENT: eyes nonicteric, mm dry Cardiovascular: RRR, good S1, S2. No murmurs, clicks, or rubs Respiratory: CTA without any wheezing, rhonchi, or rales, no accessory muscle use Abdomen: soft, NT, ND Extremity: +trace BLE peripheral edema, no tremors, wound vac to LLE Neurological: moves all 4 extremities. No focal neuro deficit Psychological: Cooperative throughout assessment. Current Facility-Administered Medications Medication Dose Route Frequency - acetaminophen 325-650 mg tab(s) (TYLENOL) 325-650 mg ORAL q 4 H PRN - lactulose 20 g CUP (DUPHALAC, CONSTULOSE) 20 g ORAL TID - insulin NPH human 20 Units injection pen (intermediate acting) (NovoLIN N, HumuLIN N) 20 Units SUBCUTANEOUS BID 8A/BEDTIME - insulin lispro 10 Units pen (rapid acting) (HumaLOG KWIKPEN) 10 Units SUBCUTANEOUS w MEALS - NaCl 0.9% 10 mL 10 mL INTRAVENOUS q 12 H - NaCl 0.9% 20 mL 20 mL INTRAVENOUS PRN - HYDROmorphone HCl 0.5 mg injection (DILAUDID) 0.5 mg INTRAVENOUS q 3 H PRN - oxyCODONE IR 15 mg tab(s) (ROXICODONE) 15 mg ORAL q 3 H PRN - NaCl 0.9% iv infusion 100 mL/hr INTRAVENOUS CONTINUOUS - polyethylene glycol 3350 17 g packet (MIRALAX, GLYCOLAX) 17 g ORAL DAILY - senna-docusate 8.6-50 mg 2 tablet (SENNA-S) 2 tablet ORAL BID - pregabalin 100 mg cap(s) (LYRICA) 100 mg ORAL TID - ceFAZolin iv piggyback 2 g in D5W (iso-osmotic) 100 mL (ANCEF) 2 g INTRAVENOUS q 8 HR - insulin lispro pen (rapid acting) (HumaLOG KWIKPEN) SUBCUTANEOUS w MEALS - DULoxetine 20 mg cap(s) (CYMBALTA) 20 mg ORAL BID - lisinopril 10 mg tab(s) (ZESTRIL, PRINIVIL) 10 mg ORAL DAILY - pantoprazole DR 40 mg tab(s) (PROTONIX) 40 mg ORAL DAILY - enoxaparin 40 mg injection (LOVENOX) 40 mg SUBCUTANEOUS DAILY - NaCl 0.9% 3-5 mL 3-5 mL INTRAVENOUS q 12 H - ondansetron 4 mg tab(s) (ZOFRAN) 4 mg ORAL q 6 H PRN Or - ondansetron (PF) 4 mg injection (ZOFRAN) 4 mg INTRAVENOUS q 6 H PRN - bisacodyl 10 mg suppository (DULCOLAX) 10 mg RECTAL DAILY PRN - dextrose 40 % 15 g 15 g ORAL PRN Or - glucagon 1 mg injection (GLUCAGEN) 1 mg INTRAMUSCULAR PRN Or - dextrose 50 % 12.5 g injection 12.5 g INTRAVENOUS PRN Data/ CBC, Coags, BMP, Mg, Phos Recent Labs 06/19/19 0552 06/18/19 0146 06/17/19 0331 WBC 8.90 11.83* 13.76* HB 8.8* 8.8* 9.7* HCT 27.6* 28.0* 30.5* PLT 648* 624* 641* NA 133* 136 134* K 5.0 4.3 4.5 CHLOR 99 100 98 CO2 30 31 30 BUN 13 12 10 CREAT 0.55* 0.59* 0.58* GLUC 355* 106* 181* CA 8.9 8.9 9.2 Assessment/ 1. Hyponatremia (increased free H2O intake, poor osmole intake, pain with ADH increase) 2. 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 Sepsis 2/2 LLE cellulitis (S. Aureus bacteremia) 4. 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 Intravenous drug abuse 6. Left leg splint s/p ( left ankle # ) 7. Hypoalbuminemia Plan/ Na stable Same Rx S/p debridement of left leg and ankle wound Continue oral h2o restriction (1200 ml/day) Continue to encourage protein intake ( Boost glucose control BID) Continue to encourage good PO intake Pain control will suppress the ADH release No other changes Will continue to follow Normal [facility] PROGRESS HNO ID: [id number] Author: Puneet Leonardo Service: Hospital Medicine Author Type: Physician Type: Progress Notes Filed: 06/19/2019 2:15 PM Note Text: DEPARTMENT OF HOSPITAL MEDICINE PROGRESS NOTE SERVICE DATE: 06/19/2019 SERVICE TIME: 12:49 PM Hospital Medicine/Primary Attending: Puneet Leonardo MD Subjective CHIEF COMPLAINT: Sepsis INTERVAL HPI: Feeling worn out today Small BM yesterday with milk of molasses enema, Agrees to polyethylene glycol bowel prep on 06/19 Current Facility-Administered Medications Medication Dose Route Frequency - lisinopril 10 mg tab(s) (ZESTRIL, PRINIVIL) 10 mg ORAL DAILY - pantoprazole DR 40 mg tab(s) (PROTONIX) 40 mg ORAL DAILY - enoxaparin 40 mg injection (LOVENOX) 40 mg SUBCUTANEOUS DAILY - NaCl 0.9% 3-5 mL 3-5 mL INTRAVENOUS q 12 H - ondansetron 4 mg tab(s) (ZOFRAN) 4 mg ORAL q 6 H PRN Or - ondansetron (PF) 4 mg injection (ZOFRAN) 4 mg INTRAVENOUS q 6 H PRN - bisacodyl 10 mg suppository (DULCOLAX) 10 mg RECTAL DAILY PRN - dextrose 40 % 15 g 15 g ORAL PRN Or - glucagon 1 mg injection (GLUCAGEN) 1 mg INTRAMUSCULAR PRN Or - dextrose 50 % 12.5 g injection 12.5 g INTRAVENOUS PRN - insulin lispro pen (rapid acting) (HumaLOG KWIKPEN) SUBCUTANEOUS w MEALS - DULoxetine 20 mg cap(s) (CYMBALTA) 20 mg ORAL BID - ceFAZolin iv piggyback 2 g in D5W (iso-osmotic) 100 mL (ANCEF) 2 g INTRAVENOUS q 8 HR - polyethylene glycol 3350 17 g packet (MIRALAX, GLYCOLAX) 17 g ORAL DAILY - senna-docusate 8.6-50 mg 2 tablet (SENNA-S) 2 tablet ORAL BID - pregabalin 100 mg cap(s) (LYRICA) 100 mg ORAL TID - NaCl 0.9% iv infusion 100 mL/hr INTRAVENOUS CONTINUOUS - HYDROmorphone HCl 0.5 mg injection (DILAUDID) 0.5 mg INTRAVENOUS q 3 H PRN - oxyCODONE IR 15 mg tab(s) (ROXICODONE) 15 mg ORAL q 3 H PRN - NaCl 0.9% 10 mL 10 mL INTRAVENOUS q 12 H - NaCl 0.9% 20 mL 20 mL INTRAVENOUS PRN - acetaminophen 325-650 mg tab(s) (TYLENOL) 325-650 mg ORAL q 4 H PRN - lactulose 20 g CUP (DUPHALAC, CONSTULOSE) 20 g ORAL TID - insulin NPH human 20 Units injection pen (intermediate acting) (NovoLIN N, HumuLIN N) 20 Units SUBCUTANEOUS BID 8A/BEDTIME - insulin lispro 10 Units pen (rapid acting) (HumaLOG KWIKPEN) 10 Units SUBCUTANEOUS w MEALS Objective PHYSICAL EXAM: BP 110/66 Pulse 98 Temp (Src) 98.2 (Oral) Resp 18 Ht 5' 9 (1.75m) Wt 200 lb 9.9 oz (91.0kg) SpO2 93% BMI 29.61 kg/(m2). O2 Therapy: Room Air GENERAL: Alert, no distress, cooperative SKIN: LLE erythema EYES: PERRLA, EOMI OROPHARYNX: Negative NECK: No jugulovenous distention, LUNGS: CTAB, no wheeze or crackles CARDIAC: Normal S1 and S2; no rubs, murmurs, or gallops ABDOMEN: Abdomen soft, protuberant, non-tender, BS diminished but present, No masses EXTREMITIES: L lower leg with external fixation device, + wound vac, + tenderness of LLE NEURO: Cranial nerves III-XII intact Lines, Drains, and Airways Line Central Line Single Lumen 06/17/19 1656 Peripherally Inserted (PICC) Right Arm Through Introducer 4.0 Guyanese 1 day Orthopaedic Device Immobilizer External Fixator -- days DATA: Diagnostic tests reviewed for today's visit: Most recent labs and imaging results. Assessment/Plan Active Problems: #Sepsis 2/2 LLE cellulitis/abscess and S. Aureus bacteremia Sepsis resolved -in setting of L trimalleolar ankle fracture -s/p IANDD and placement of external fixator?06/10, debridement of left leg and ankle 06/15 - ortho and ID input appreciated -continue IV ancef per ID ? #MSSA bacteremia -TTE and JOANNA without evidence of endocarditis -continue IV ancef per ID -monitor cultures # Elevated TSH, high FT4, low T3 With severe constipation - currently being worked up by endocrinology, recs appreciated # Severe constipation: Small BM 06/18 with milk of molasses enema, - trial of polyethylene glycol bowel prep 06/19 #Hyponatremia- improving, nephrology following ? #Leukocytosis- resolved, 2/2 bacteremia and cellulitis/abscess as above. Monitor vitals. Daily CBC. ? #Hyperbilirubinemia: resolved # elevated Alk phos: likely from bone per GI # Hypoalbuminemia: ? 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 # + Hepatitis C antibody with hepatosplenomegaly: GI on consult, needs viral RNA load checked as OP, f/u with GI as outpatient ? #IDDM, uncontrolled, hyperglycemia- ?Discussed importance of compliance. -Endocrine on consult -Lantus and lispro adjusted per Endocrine. Continue SSIC ? #HTN-continue home lisinopril ? # Medical noncompliance ? # IVDA: last use 2 months ago after getting out of halfway Resolved Problems: * No resolved hospital problems. * Medication and Non-Pharmacologic VTE Prophylaxis/Anticoagulant s Anticoagulant AND Antiplatelet Medications (From admission, onward) Start Dose Route Frequency Ordered Stop 06/10/192099 enoxaparin 40 mg injection (LOVENOX) (Medical Risk Categories) 40 mg SUBCUTANEOUS DAILY 06/09/192049 -- 06/09/192099 vte non-pharmacologic prophylaxis - none indicated (de,oh) 06/09/192099 activity - mobilize patient (de,wy) VTE Prophylaxis: VTE prophylaxis appropriate Disposition: Extended Care Facility, has insurance authorization through 06/21, anticipate DC on 06/20 Plan of care discussed with: Provider, RN, Patient SIGNATURE: Puneet Leonardo MD PATIENT NAME: Tori Cantor DATE: June 19, 2019 TIME: 12:49 PM PAGER: [phone] [facility] PROGRESS HNO ID: [id number] Author: Remy Peraza Service: Pain Management Author Type: Physician Type: Progress Notes Filed: 06/19/2019 6:46 AM Note Text: Name: TORI CANTOR Age: [age] year old PAIN MANAGEMENT: s/p IANDD left tibia wounds; external fixation LLE, left trimalleolar ankle fracture/dislocation 05/27; Right foot Charcot deformity, DM neuropathy, IVDA 24H Pain Regimen: Acetaminophen 650 mg ?1 Cymbalta 20mg po bid Dilaudid 0.5mg IV x 1 Oxycodone 15 mg ? 5 Lyrica 100 mg x 1 Senna?S, 2 tabs twice a day MiraLAX daily Interval HPI; afebrile VSS no new complaints, pain control is better, bowel movement ?1 status post debridement of left leg and ankle wound, application of wound VAC 06/15. Large area of necrotic skin, fascia and muscle noted, significant blood loss, approximately 500 mL. Still with leukocytosis, but improving, H/H reasonably stable. 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 Patient had been noncompliant with nonweightbearing restrictions. He also was seen in the ED 06/08 after removing his own splint; patient left AMA. Patient is a IV vancomycin. He underwent irrigation and debridement on 06/10 the wound VAC and external fixator placement. Blood cultures positive for MSSA bacteremia. JOANNA negative for infective endocarditis. CT left tibia and fibula showing concern for osteomyelitis, possible calf abscess and gas forming infection. Ongoing leukocytosis. Patient on Ancef Prior to admission patient was taking Lyrica 100 mg by mouth 3 times a day. He smokes 1 pack per day. He denies alcohol. He does use marijuana infrequently. He states he had done street drugs for 30 years and then he last used a while ago. He has a history of IV cocaine and methamphetamine. He also admits to history of frequent IV fentanyl use. 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 06/06/2019 2 06/06/2019 Oxycodone-Acetaminophen 5-325 30.00 7 Pe Ailyn [id number] Pha ([id number]) 0 32.14 [place]ME [place] 06/06/2019 2 06/06/2019 Pregabalin 100 MG Capsule 30.00 10 Pe Ailyn [id number] Pha ([id number]) 4 2.01 LME [place] 06/01/2019 2 06/01/2019 Pregabalin 150 MG Capsule 30.00 15 Pe Ailyn [id number] Pha ([id number]) 4 2.01 LME Private [facility] [place] 05/31/2019 2 05/31/2019 Oxycodone-Acetaminophen 5-325 6.00 1 Da Mil [id number] Pha ([id number]) 0 45.00 MME Private [facility] [place] 01/31/2019 1 12/07/2018 Lyrica 150 MG Capsule 90.00 30 Ch Pet [id number] [facility] ([id number]) 1 2.88 [place]ME [place] 12/07/2018 1 12/07/2018 Lyrica 150 MG Capsule 90.00 30 Ch Pet [id number] [facility] ([id number]) 0 2.88 [place] 10/05/2018 1 10/04/2018 Hydrocodone-Acetamin 5-325 MG 18.00 3 Ju And [id number] [facility] (2320) 0 30.00 [place] 03/03/2018 1 03/03/2018 Lyrica 150 MG Capsule 90.00 30 Ch Pet [id number] [facility] ([id number]) 0 2.88 [place] 10/28/2017 1 08/25/2017 Lyrica 150 MG Capsule 90.00 30 Ch Pet [id number] [facility] (2320) 1 2.88 [place] 09/11/2017 1 08/25/2017 Lyrica 150 MG Capsule 90.00 30 Ch Pet [id number] [facility] (2320) 0 2.88 [place] 07/04/2017 1 01/14/2017 Lyrica 150 MG Capsule 81.00 27 Ch Pet [id number] [facility] (2320) 2 2.88 LME [place] Current Facility-Administered Medications Medication Dose Route Frequency Provider Last Rate Last Dose - acetaminophen 325-650 mg tab(s) (TYLENOL) 325-650 mg ORAL q 4 H PRN Mo (Martha) APRN. DannyRETAINING ROOM CUTTER 650 mg at 06/18/19 0654 - lactulose 20 g CUP (DUPHALAC, CONSTULOSE) 20 g ORAL TID Remy Peraza - insulin NPH human 20 Units injection pen (intermediate acting) (NovoLIN N, HumuLIN N) 20 Units SUBCUTANEOUS BID 8A/BEDTIME Lucita Ciltea 20 Units at 06/18/192135 - insulin lispro 10 Units pen (rapid acting) (HumaLOG KWIKPEN) 10 Units SUBCUTANEOUS w MEALS Lucita Ciltripa - NaCl 0.9% 10 mL 10 mL INTRAVENOUS q 12 H Puneet Leonardo 10 mL at 06/18/192151 - NaCl 0.9% 20 mL 20 mL INTRAVENOUS PRN Puneet Leonardo - HYDROmorphone HCl 0.5 mg injection (DILAUDID) 0.5 mg INTRAVENOUS q 3 H PRN Remy Masonus 0.5 mg at 06/18/19 0654 - oxyCODONE IR 15 mg tab(s) (ROXICODONE) 15 mg ORAL q 3 H PRN Remy Peraza 15 mg at 06/19/19 0052 - NaCl 0.9% iv infusion 100 mL/hr INTRAVENOUS CONTINUOUS Bryson (Res) Daljit 100 mL/hr at 06/16/19 0150 100 mL/hr at 06/16/19 0150 - polyethylene glycol 3350 17 g packet (MIRALAX, GLYCOLAX) 17 g ORAL DAILY Bryson (Res) Daljit 17 g at 06/18/19 0841 - senna-docusate 8.6-50 mg 2 tablet (SENNA-S) 2 tablet ORAL BID Evangelister (Res) Daljit 2 tablet at 06/18/192148 - pregabalin 100 mg cap(s) (LYRICA) 100 mg ORAL TID Bryson (Res) Gennyowski 100 mg at 06/18/192148 - ceFAZolin iv piggyback 2 g in D5W (iso-osmotic) 100 mL (ANCEF) 2 g INTRAVENOUS q 8 HR Evangelister (Res) Gennyowski 200 mL/hr at 06/18/19 2348 2 g at 06/18/19 2348 - insulin lispro pen (rapid acting) (HumaLOG KWIKPEN) SUBCUTANEOUS w MEALS Christopher (Res) Pinkowski 3 Units at 06/18/19 1302 - DULoxetine 20 mg cap(s) (CYMBALTA) 20 mg ORAL BID Christopher (Res) Pinkowski 20 mg at 06/18/192148 - lisinopril 10 mg tab(s) (ZESTRIL, PRINIVIL) 10 mg ORAL DAILY Christopher (Res) Pinkowski 10 mg at 06/18/19 0843 - pantoprazole DR 40 mg tab(s) (PROTONIX) 40 mg ORAL DAILY Christopher (Res) Pinkowski 40 mg at 06/18/19 0841 - enoxaparin 40 mg injection (LOVENOX) 40 mg SUBCUTANEOUS DAILY Arturoopher (Res) Pinkowski 40 mg at 06/18/192148 - NaCl 0.9% 3-5 mL 3-5 mL INTRAVENOUS q 12 H Arturoopher (Res) Pinkowski 5 mL at 06/16/192042 - ondansetron 4 mg tab(s) (ZOFRAN) 4 mg ORAL q 6 H PRN Arturoopher (Res) Pinkowski Or - ondansetron (PF) 4 mg injection (ZOFRAN) 4 mg INTRAVENOUS q 6 H PRN Arturoopher (Res) Pinkowski 4 mg at 06/16/192039 - bisacodyl 10 mg suppository (DULCOLAX) 10 mg RECTAL DAILY PRN Arturoopher (Res) Pinkowski 10 mg at 06/17/19 0037 - dextrose 40 % 15 g 15 g ORAL PRN Arturoopher (Res) Pinkowski 15 g at 06/16/192113 Or - glucagon 1 mg injection (GLUCAGEN) 1 mg INTRAMUSCULAR PRN Arturoopher (Res) Pinkowski Or - dextrose 50 % 12.5 g injection 12.5 g INTRAVENOUS PRN Arturoopher (Res) Pinkowski ibuprofen (MOTRIN) 400 mg tablet, Take 400 mg by mouth every 6 hours as needed., Disp: , Rfl: insulin glargine (LANTUS SOLOSTAR U-100 INSULIN) 100 unit/mL (3 mL) inpn, Inject 24 Units subcutaneously twice daily. While at [facility] , Disp: , Rfl: levoFLOXacin (LEVAQUIN) 750 mg tablet, Take 750 mg by mouth once daily. End date 06-23-19, Disp: , Rfl: enoxaparin (LOVENOX) 40 mg/0.4 mL syrg, Inject 40 mg subcutaneously every 24 hours., Disp: , Rfl: oxyCODONE-acetaminophen (PERCOCET) 5-325 mg tablet, Take 1 tablet by mouth every 6 hours as needed., Disp: , Rfl: insulin detemir U-100 (LEVEMIR FLEXTOUCH U-100 INSULN) 100 unit/mL (3 mL) inpn injection, Inject 30 Units subcutaneously twice daily. While at home, Disp: , Rfl: doxycycline monohydrate (AVIDOXY) 100 mg tablet, Take 1 tablet by mouth twice daily for 14 days. (Patient taking differently: Take 100 mg by mouth twice daily. End date 06-23-19 ), Disp: 28 tablet, Rfl: 0 acetaminophen (TYLENOL) 325 mg tablet, Take 2 tablets by mouth every 6 hours as needed., Disp: , Rfl: insulin lispro (HUMALOG KWIKPEN INSULIN) 100 unit/mL inpn, Inject 14 Units subcutaneously three times daily before meals. (Patient taking differently: Inject subcutaneously three times daily before meals. Sliding scale 100-150: 2 units 151-200: 4 units 201-250: 6 units 251-300: 8 units 301-350: 10 units 351-400: 12 units 401-450: 14 units <70 or >400 call MD ), Disp: , Rfl: lisinopril (ZESTRIL, PRINIVIL) 10 mg tablet, Take 1 tablet by mouth once daily for 15 days., Disp: 15 tablet, Rfl: 0, 05/26/[address] (PROTONIX) 40 mg tablet, Take 40 mg by mouth once daily. , Disp: , Rfl: , 05/26/2019 Lancets lancets, Use as instructed, Disp: 100 Each, Rfl: 11, Taking Insulin Dudley, Disposable, (BD ULTRAFINE III MINI PEN) 31 gauge x 3/16 ndle, USE WITH INSULIN PENS 4TIMES DAILY, Disp: 400 Each, Rfl: 3, Taking blood sugar diagnostic (ONETOUCH ULTRA TEST) test strip, CHECK BLOOD SUGARS 6 TIMES DAILY, Disp: 200 Strip, Rfl: 3, Taking DULoxetine (CYMBALTA) 30 mg capsule, Take 1 capsule by mouth once daily. (Patient taking differently: Take 120 mg by mouth once daily. ), Disp: , Rfl: 0, 05/25/2019 pregabalin (LYRICA) 150 mg capsule, Take 100 mg by mouth three times daily. , Disp: , Rfl: , Taking cyclobenzaprine (FLEXERIL) 5 mg tablet, Take 5 mg by mouth every 8 hours as needed., Disp: , Rfl: Social History Tobacco Use - Smoking status: Current Every Day Smoker Packs/day: 1.00 Types: Cigarettes - Smokeless tobacco: Never Used Substance Use Topics - Alcohol use: Yes Comment: socially - Drug use: Yes Types: Cocaine, Amphetamines Comment: hist of cocaine and marajuana use, fentanyl FAMILY HISTORY Problem Relation Age of Onset - Hypertension Mother - Diabetes Mother - Stroke Mother - Heart Mother CHF - Cataract Mother - Hypertension Father - COPD Father - Emphysema Father PAST SURGICAL HISTORY Procedure Laterality Date - IR VASCULAR ACCESS TEAM PICC INSERTION RADIO 06/17/2019 - NONE ROS: All of the following reviewed and negative except as noted below: GENERAL: no fever, chills, sweats, weight loss, fatigue, generalized weakness HEENT: no headache, vision changes, eye discomfort, hearing change, ear discomfort, sinus pain, nasal discharge or congestion, oral lesions, soreness, dental problem NECK: no adenopathy, discomfort, change in ROM CHEST: no shortness of breath, dyspnea on exertion, wheezing, cough, sputum production or chest pain HEART: no chest pain, palpitations, syncope ABDOMEN: no nausea, vomiting, constipation, diarrhea, abdominal pain : no dysuria, urgency, frequency, history of stones, incontinence NEURO: no confusion or alteration in consciousness, slurred speech, seizure, focal weakness EXTREMITIES: See history of present illness HEME: no new adenopathy, bruises, petechiae PSYCH: no depression, anxiety, agitation PAIN PSYCHIATRIC EXAM: GENERAL: alert, oriented to person, place, time JUDGMENT AND INSIGHT: intact APPEARANCE: neatly groomed DEMEANOR: coooperative, not hostile, mistrustful, preoccupied, or demanding ACTIVITY: normal, not hyperactive or hypoactive, no tremors, tics EYE CONTACT: normal SPEECH: normal, rate, volume, articulation, coherence, spontaneity MOOD: normal, without overt sadness, grief, anxiety, appropriate to situation IDEATION: normal and without suicidal or homicidal ideation MEMORY: intact PHYSICAL EXAMINATION: GENERAL: well nourished and developed; no acute distress; alert and oriented x 3; intact judgement and insight HEENT: no evidence of trauma; cranial nerves intact; eyes clear EOMI; no hearing deficits apparent; nasal passages unremarkable; throat and mucous membranes clear NECK: supple without lymphadenopathy; no JVD; no thyromegaly CHEST: clear bilaterally to auscultation; normal chest movement; no rales or rhonchi HEART: regular rate and rhythm, normal S1 and S2, no murmurs, clicks, rubs, or gallops ABDOMEN: soft; nondistended; bowel sounds present; no hepatomegaly; no splenomegaly; no tenderness EXTREMITIES: no evidence of clubbing; no cyanosis; left leg with wound VAC; intact external fixator 1+ edema NEURO: cranial nerves intact; no focal deficits; no confusion; no tremor; sensorium normal SKIN: no decubitus lesions HEME: no bruising; no adenopathy PSYCH: no evidence of depression; no anxiety; no agitation; no apparent hallucinations BP 146/92 Pulse 97 Temp 37.1 ?C (98.8 ?F) (Temporal) Resp 18 Ht 175.3 cm (5' 9) Wt 91 kg (200 lb 9.9 oz) SpO2 99% BMI 29.63 kg/m? BMI 29.63 kg/(m2) Date 06/14/19699 - 06/15/19 0659 Shift 4453-9617 7024-7999 8112-4107 24 Hour Total INTAKE Shift Total OUTPUT Urine 1300 1300 Shift Total 1300 1300 Weight (kg) 91 91 91 91 Date 06/13/19699 - 06/14/1965806/14/19699 - 06/15/19 0659 Shift 5030-6277 4093-8567 9449-5251 24 Hour Total 3039-8313 8670-5826 4637-8152 24 Hour Total INTAKE IV 700 700 Volume (mL) (NaCl 0.9% iv infusion) 600 600 Volume (mL) (ceFAZolin iv piggyback 2 g in D5W (iso-osmotic) 100 mL (ANCEF)) 100 100 Shift Total 700 700 OUTPUT Urine 658 964 9140 1300 1300 Void (ml) 547 495 4729 1300 1300 Drains 0 0 Negative Pressure: Output (mL) (Negative Pressure Wound Therapy Ankle -Left) 0 0 # of BMs Number of BMs 0 x 0 x Shift Total 400 750 0 1150 1300 1300 Weight (kg) 91 91 91 91 91 91 91 91 ABNORMAL/NEW FINDINGS: NONE RADIOLOGY/DIAGNOSTICS: LABORATORY: CBC: No results for input(s): WBC, RBC, HB, HCT, PLT, MCV, MCH, MPV, RDW in the last 24 hours. CMP: No results for input(s): NA, K, CHLOR, CO2, BUN, CREAT, GLUC, TPROT, CA, MG, ALBUMIN, TBILI, ALKPHOS, ALT, AST, ANION in the last 24 hours. Heme: No results for input(s): RETICP, ABSRETIC, LD, VIKRAM, FE, TIBC, TRANSFERSAT in the last 24 hours. 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 ([facility]) Hypertension Gerd (Gastroesophageal Reflux Disease) Microalbuminuria History of Diabetic Gastroparesis Diabetic Polyneuropathy Associated With Type 1 Diabetes Mellitus ([facility]) Depression With Anxiety Charcot's Joint of Right Foot Hyperlipidemia Hep C W/O Coma, Chronic ([facility]) History of Drug Abuse in Remission ([facility]) Ivdu (Intravenous Drug User) Tobacco Abuse Left Ankle Joint Deformity Hyperglycemia Nicotine use disorder, F17.2 Closed Fracture of Left Ankle Sepsis ([facility]) PLAN: Status post debridement of left leg and ankle wounds, external fixator placement and wound VAC 06/10; repeat debridement, wound VAC placement 06/15 Left trimalleolar ankle fracture/dislocation on 05/27; noncompliant with nonweightbearing and wound care On Ancef for MSSA bacteremia; concern for osteomyelitis of tibia and fibula. JOANNA negative for endocarditis. CT also demonstrated concern for abscess along posterior tibia. History of polysubstance abuse including IV drug abuse; patient denies recent abuse Dilaudid 0.5 mg IV every 3 hours when necessary breakthrough pain Increase Oxycodone 15 milligram every 3 hours when necessary severe pain Increased use. Cymbalta 20 mg twice a day Change Lyrica 100 mg by mouth 3 times a day Senna S2 by mouth twice a day, MiraLAX daily, Dulcolax suppository as needed Finely positive bowel movement on 06/18 Oxycodone prescription placed in chart. Plans to return to senior living facility at discharge noted Remy Peraza M.D. [facility] PROGRESS HNO ID: [id number] Author: Gareth Uriarte Service: Orthopaedic Surgery Author Type: Physician Type: Progress Notes Filed: 06/19/2019 9:55 AM Note Text: ORTHOPAEDIC SURGERY POSTOP DAILY PROGRESS NOTE ASSESSMENT: 44 year old male POD #4 status-post IANDD of left leg and ankle wound, application of wound vac; POD #9 IANDD left leg and ankle wound, application of wound vac, application of ex fix. PLAN: Management per primary Maintain ex fix LLE Pain Medications:?Per pain management? DVT prophylaxis:?per primary, ok for dvt chemoppx from orthopaedic standpoint Perioperative Antibiotics:?per primary, Ancef 2g Q8H Diet Plan:?Diet carbohydrate controlled Mobilization, Range of Motion, and Weight bearing:?NWB LLE, Ex fix in place Dressing Management:?Pin site care: xeroform and kerlix daily changes, wound vac changes per wound center Est. Length Of Stay / Discharge Destination:?Per primary Any Other Issues??Sepsis, hyponatremia, Diabetes, Hepatitis C, IDDM Consults: Endocrinology, Pain management, ID, nephrology, CV, PT, OT, care management INTERVAL HPI: No acute events overnight. Pain controlled. Denies fevers and chills. Denies chest pain and shortness of breath. OBJECTIVE: BP 139/90 Pulse 93 Temp 36.6 ?C (97.9 ?F) (Oral) Resp 18 Ht 175.3 cm (5' 9) Wt 91 kg (200 lb 9.9 oz) SpO2 98% BMI 29.63 kg/m? Exam: General: NAD, AOx3 Left Lower Extremity: Wound vac in place, dressing with only mild medial serosanguinous saturation 300 mL of dark fluid in vac Ex fix in place SILT damico/sa/sp/dp/t though significantly diminished at baseline. +DF/PF/EHL motor function DP pulse palpable, foot warm with pulses Compartments soft, compressible. Tolerates passive stretch of digits. Recent Labs 06/19/19 0552 06/18/19 0146 06/17/19 0331 CREAT 0.55* 0.59* 0.58* BUN 13 12 10 NA 133* 136 134* K 5.0 4.3 4.5 CHLOR 99 100 98 CO2 30 31 30 ANION 9 9 11 GLUC 355* 106* 181* CA 8.9 8.9 9.2 ALB 1.7* 1.7* 1.9* AST 15 11* 14* ALT 9* 8* 12 ALKPHOS 120* 128* 161* TBILI 0.4 0.3 0.5 WBC 8.90 11.83* 13.76* HB 8.8* 8.8* 9.7* HCT 27.6* 28.0* 30.5* PLT 648* 624* 641* COAGS: APTT 27.6 06/09/2019 PT INR 1.09 06/10/2019 SED RATE/CRP: Sed Rate, Westergren 84 06/08/2019 CRP 23.80 06/08/2019 Imaging: No new orthopaedic imaging acquired at this time. Valdemar Song MD Orthopaedic Surgery, PGY-3 Pager: [phone] Ortho Pager: [phone] Agree with resident assessment and plan. WBC normalized. Continue wound vac changes Normal [facility] THERAPY NTon 06-19-2019 THERAPY NT HNO ID: [id number] Author: Ines Gunter Service: Physical Therapy Author Type: Self Contained Behavior Unit Teacher Type: Therapy (PT/OT/Speech/Resp) Filed: 06/19/2019 12:10 PM Note Text: ----- Attestation signed by Noelle Parra at 06/19/2019 4:29 PM I reviewed and agree with the documentation corresponding to this therapy visit. SIGNATURE: Noelle Parra PT DATE: June 19, 2019 TIME: 4:29 PM ----- Physical Therapy Treatment SERVICE DATE: 06/19/2019 SERVICE TIME: 1117 to 1142 ROOM: [place] [address] Recommended Discharge Disposition: Subacute/SNF Justification For Post Acute Needs: Anticipate that patient will require daily (5x/wk) skilled therapy in a post-acute facility setting at the time of acute hospital discharge;Medically complex PT Recommendations to Nursing: Transfer to/from chair;OOB for Meals;With assist of 1 person Device: Wheeled Walker PT 6 Clicks Score: 10 Precautions/Activity Restrictions: Weight Bearing Restrictions Extremity With Weight Bearing Restricted: Left Lower Extremity Left Lower Extremity Weight Bearing Status: NWB ASSESSMENT : Patient slowly progressing towards goals, able to take several small hops clearing foot from floor on right lower extremity using front wheeled walker from bed to chair with ~50% cueing for adherence to non-weight bearing in left lower extremity. However, patient limited with distance due to fatigue in upper extremities. All goals on going. Continue to recommend senior living facility upon discharge to promote independence with all functional mobility/activities of daily living. Patient Disposition at Start of Session: Supine in Bed;Call Hines in Reach Patient Disposition at End of Session: OOB in Chair;Call Hines in Reach Tolerated Full Session Pain;Fatigue Physical Therapy Problem List: Decreased Activity Tolerance;Functional Mobility Impairment;Decreased Range Of Motion;Decreased Strength;Balance Impaired;Pain;Safety Deficits Patient /Caregiver Goals: Go To Rehab Goals for Plan of Care: Transfer supine to/from sit with: Stand By Assistance Transfer sit to/from stand with: Stand By Assistance Ambulate with: Contact Guard Assistance Distance: 20x2 Device: Wheeled Walker Goal: 2x10 reps LLE AROM exercises Progress Toward Goals: Progressing as expected Rehab Potential: Fair PLAN: Treatment Frequency (times per week): 7(3-7) Current admission Treatment Interventions: Education;Balance Training;Joint Mobility;Strengthening;Fu nctional Mobility Training Plan of Care developed with: Patient TREATMENT INTERVENTIONS: Therapy Diagnosis: Reduced mobility-other;Abnormalit ies of gait and mobility-other Interventions Provided: Therapeutic Exercise (38498);Therapeutic Activity (02261);Gait Training (58854) Therapeutic Exercise (48914) Treatment Minutes: 12 1 unit Skilled Intervention(s): Instruction in therapeutic exercise: Patient completed general strengthening exercises in supine (gluteal set, heel slide, hip abd/add, straight leg raise, hip adductor squeeze) x 15 reps bilateral lower extremity, with cueing for facilitation of muscle control, optimal recruitment and neutral joint alignment Therapeutic Activity (06124) Treatment Minutes: 8 1 unit Skilled Intervention(s): Instructed patient in supine to sit pushing with upper extremities to sit up Dynamic sitting activities on edge of bed x 4 minutes Instruction in sit to and from stand technique with proper hand placement and body positioning at edge of bed/chair providing moderate assist Gait Training (27688) Treatment Minutes: 3 0 units Skilled Intervention(s): Instruction in use of front wheeled walker equipment, cues for sequence and pattern to maintain non-weight bearing to left lower extremity with emphasis on foot clearance/hopping on right lower extremity versus shuffling/pivoting on foot Total Timed Code Treatment Minutes: 23 Total Treatment Time (minutes): 23 SUBJECTIVE: Current Hospital Course: Chart reviewed and no significant medical updates relevant to therapy were noted Reason for Physical Therapy Consult : eval and treat Relevant Past Medical History: DM 1, L ankle fx, sepsis, IV drug use, HLD, Hep C, GERd Patient Report: C/O 5/10 left leg pain Home Environment Patient Lives With: Facility Care(SNF) Assistance Available: 24 Hour Prior Functional Level: Required Assistance Assistance Required With: Self Care;Safety;Laundry;Clean ing;Meals Prior Functional Level Comments: working with PT/OT at facility OBJECTIVE: CURRENT FUNCTIONAL STATUS: Current Functional Mobility Assist Level Additional Information Rolling Supine to Sit Moderate Assistance(with LLE) Sit to Supine Scooting Sit to Stand Moderate Assistance(bed height elevated 2 inches) Stand to Sit Moderate Assistance Bed to Chair Toilet/Commode Gait Moderate Assistance Gait Device: Wheeled Walker(wide) Gait Distance (feet): 3'x1 Stairs Curb Step Car Transfer Gait Deviations Left Lower Extremity: Other: See comment(NWB) General Gait Deviations: Step length decreased;Flexed trunk posture;Non-functional gait speed(hopping on RLE) -HLM: 5: Standing (1 or more minutes) Please see discipline specific clinical documentation flowsheet for complete details for this therapy evaluation/treatment. SIGNATURE: Ines Gunter PTA PATIENT NAME: Tori Cantor DATE: June 19, 2019 TIME: 12:03 PM Normal [facility] Thyro. Peroxidase Abon 06-19 TPO Ab Qn < 28.0 Normal 0.0-60.0 [facility] Comment on above: Performed By: #### H A1C #### [facility] [address] [address] CONSULT Shmuel 06-18-2019 CONSULT PROG HNO ID: [id number] Author: Lucita Del Real Service: Endocrinology Author Type: Physician Type: Consult Progress Note Filed: 06/18/2019 8:38 PM Note Text: ENDOCRINOLOGY CONSULT PROGRESS NOTE SERVICE DATE: 06/18/2019 SERVICE TIME: 1:00 PM Subjective INTERVAL HPI: Following for DM type 1. Adm with left ankle fracture after a fall, has left leg infection, cellulitis. Notes and orders reviewed. Patient refused insulin 06/14 am; was NPO for JOANNA; agreed to take NPH 26 units and humalog 10 units x1; readjusted doses as he is so afraid of hypoglycemia and will refuse to take his insulin! Went to OR again on 06/15. Diet: DIET CARBOHYDRATE CONTROLLED p.o intake erratic, states following diet. Activity:Bedrest Review of Systems: PAIN ASSESSMENT: c/o left ankle/leg pain, severe at times GENERAL: has fatigue, malaise, no fever/chills RESPIRATORY: Negative for cough, hemoptysis, wheezing, COPD, dyspnea or shortness of breath CARDIOVASCULAR: Negative for chest pain, leg swelling, hypertension, CHF or palpitations GI: occ nausea, appetite decreased ENDOCRINE: Negative for cold or heat intolerance, polyuria or polydipsia. The remainder of the review of systems is negative. Current Facility-Administered Medications Medication Dose Route Frequency - lisinopril 10 mg tab(s) (ZESTRIL, PRINIVIL) 10 mg ORAL DAILY - pantoprazole DR 40 mg tab(s) (PROTONIX) 40 mg ORAL DAILY - enoxaparin 40 mg injection (LOVENOX) 40 mg SUBCUTANEOUS DAILY - NaCl 0.9% 3-5 mL 3-5 mL INTRAVENOUS q 12 H - ondansetron 4 mg tab(s) (ZOFRAN) 4 mg ORAL q 6 H PRN Or - ondansetron (PF) 4 mg injection (ZOFRAN) 4 mg INTRAVENOUS q 6 H PRN - bisacodyl 10 mg suppository (DULCOLAX) 10 mg RECTAL DAILY PRN - dextrose 40 % 15 g 15 g ORAL PRN Or - glucagon 1 mg injection (GLUCAGEN) 1 mg INTRAMUSCULAR PRN Or - dextrose 50 % 12.5 g injection 12.5 g INTRAVENOUS PRN - insulin lispro pen (rapid acting) (HumaLOG KWIKPEN) SUBCUTANEOUS w MEALS - DULoxetine 20 mg cap(s) (CYMBALTA) 20 mg ORAL BID - ceFAZolin iv piggyback 2 g in D5W (iso-osmotic) 100 mL (ANCEF) 2 g INTRAVENOUS q 8 HR - polyethylene glycol 3350 17 g packet (MIRALAX, GLYCOLAX) 17 g ORAL DAILY - senna-docusate 8.6-50 mg 2 tablet (SENNA-S) 2 tablet ORAL BID - pregabalin 100 mg cap(s) (LYRICA) 100 mg ORAL TID - NaCl 0.9% iv infusion 100 mL/hr INTRAVENOUS CONTINUOUS - HYDROmorphone HCl 0.5 mg injection (DILAUDID) 0.5 mg INTRAVENOUS q 3 H PRN - oxyCODONE IR 15 mg tab(s) (ROXICODONE) 15 mg ORAL q 3 H PRN - insulin lispro 14 Units pen (rapid acting) (HumaLOG KWIKPEN) 14 Units SUBCUTANEOUS w MEALS - insulin NPH human 24 Units injection pen (intermediate acting) (NovoLIN N, HumuLIN N) 24 Units SUBCUTANEOUS BID 8A/BEDTIME - NaCl 0.9% 10 mL 10 mL INTRAVENOUS q 12 H - NaCl 0.9% 20 mL 20 mL INTRAVENOUS PRN - acetaminophen 325-650 mg tab(s) (TYLENOL) 325-650 mg ORAL q 4 H PRN - lactulose 20 g CUP (DUPHALAC, CONSTULOSE) 20 g ORAL TID Objective PHYSICAL EXAM: GENERAL: awake, alert; mild distress due to pain (wound care dressing pt) SKIN: no rash/ bruising OROPHARYNX: moist LUNGS: clear CVS: RRR EXTREMITIES: left foot in a bandage and external fixation frame; right foot charcot's deformity, no ulcers BP 114/74 Pulse 96 Temp (Src) 98.8 (Oral) Resp 18 Ht 5' 9 (1.75m) Wt 200 lb 9.9 oz (91.0kg) SpO2 99% BMI 29.61 kg/(m2). O2 Therapy: Room Air DATA: Diagnostic tests reviewed for today's visit: Most recent labs and imaging results. Last 24 hr BS reviewed. Recent Labs 06/18/19 1437 06/18/19 1048 06/18/19 0624 06/18/19 0146 06/17/19 2152 06/17/19 1736 06/17/19 0331 06/16/19 0150 GLUC -- -- -- 106* -- -- -- 181* -- 187* GLUCOSEMETER 51* 177* 129* -- 118* 109* < > -- < > -- < > = values in this interval not displayed. 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 Home Rx is Levemir 25 units bid and Novolog 14 units tid with SSI. Was on / from 03/09 till 05/18 (while incarcerated) Saw Carmelo in [place] in September,; due for appt? Started on lantus 25 units bid and Humalog 20 units tid here. BS still very high, increased Lantus to 30 units bid and Humalog to 24 unist tid changed to NPH 30 units bid and humalog 30 units qac tid pluc sorrection.Patient refused insulin 06/14 am; was NPO for JOANNA; then agreed to take NPH 26 units and humalog 10 units x1; readjusted doses as he is so afraid of hypoglycemia and refuses to take insulin; decreased NPH to / bid and humalog 16 units qac tid plus correction on 06/14. Reduced NPH to 24-0-0-24 and Humalog to 14 units tid (-4 if eats <30%) from 06/17; BS low this afternoon; therefore will decrease NPH to 20 units bid and humalog 10 units qac tid plus correction. Cellulitis/abscess left ankle, s/p debridement and external fixation of ankle fracture on 06/10. JOANNA normal. Went to OR again on 06/15 for debridement. Hyponatremia, renal on board, evidence of SIADH, Na 136(134)(136)(133)(130)(1 28)(124)(126) IVDU (intravenous drug user) POA: Yes Assessment AND Plan: hx Closed fracture of left ankle POA: Yes Assessment AND Plan: trimalleolar, 3 weeks ago after a fall Abnormal thyroid function test; TSH 8.2 could be non-thyroidal illness; with check free T4 and reverse T3 SIGNATURE: Lucita Del Real MD PATIENT NAME: Tori Cantor DATE: June 18, 2019 TIME: 3:26 PM PAGER: [phone] Normal [facility] Comprehensive Panelon 2018 Creatinine [Mass/Vol] 0.59 mg/dL Low 0.67-1.17 [facility] Comment on above: Performed By: #### H A1C #### [facility] [address] [place], [place] [address] ALP [Catalytic activity/Vol] 128 U/L High 45-117 [facility] Comment on above: Performed By: #### H A1C #### [address] [address] Bilirubin [Mass/Vol] 0.3 mg/dL Normal 0.2-1.0 [facility] Comment on above: Performed By: #### H A1C #### [address] [address] Protein [Mass/Vol] 6.7 g/dL Normal 6.4-8.2 [facility] Comment on above: Performed By: #### H A1C #### [address] [address] ALT [Catalytic activity/Vol] 8 U/L Low 12-78 [facility] Comment on above: Performed By: #### H A1C #### [address] [address] AST [Catalytic activity/Vol] 11 U/L Low 15-37 [facility] Comment on above: Performed By: #### H A1C #### [facility] [address] [place], [place] [address] Albumin [Mass/Vol] 1.7 g/dL Low 3.4-5.0 [facility] Comment on above: Performed By: #### H A1C #### [address] [address] Anion gap [Moles/Vol] 9 mmol/L Normal 8-16 [facility] Comment on above: Performed By: #### H A1C #### [address] [place], [place] [address] CO2 [Moles/Vol] 31 mmol/L Normal 21-32 [facility] Comment on above: Performed By: #### H A1C #### [facility] [address] [place], [place] [address] Glucose [Mass/Vol] 106 mg/dL High 70-99 [facility] Comment on above: Performed By: #### H A1C #### [facility] [address] [place], [place] [address] Urea nitrogen [Mass/Vol] 12 mg/dL Normal 7-18 [facility] Comment on above: Performed By: #### H A1C #### [facility] [address] [place], [place] [address] Calcium [Mass/Vol] 8.9 mg/dL Normal 8.5-10.1 [facility] Comment on above: Performed By: #### H A1C #### [facility] [address] [place], [place] [address] Chloride [Moles/Vol] 100 mmol/L Normal 98-107 [facility] Comment on above: Performed By: #### H A1C #### [facility] [address] [place], [place] [address] Potassium [Moles/Vol] 4.3 mmol/L Normal 3.5-5.1 [facility] Comment on above: Performed By: #### H A1C #### [facility] [address] [place], [place] [address] Sodium [Moles/Vol] 136 mmol/L Normal 136-145 [facility] Comment on above: Performed By: #### H A1C #### [facility] [address] [place], [place] [address] Hemogramon 06-18-2019 Erythrocyte distribution width (RBC) [Ratio] 14.4 % Normal 11.6-14.4 [facility] Comment on above: Performed By: #### H A1C #### [facility] [address] [place], [place] [address] Hematocrit (Bld) [Volume fraction] 28.0 % Low 40.1-51.0 [facility] Comment on above: Performed By: #### H A1C #### [facility] [address] [place] [address] Hemoglobin (Bld) [Mass/Vol] 8.8 g/dL Low 13.7-17.5 [facility] Comment on above: Performed By: #### H A1C #### [facility] [address] [place] [address] MCH (RBC) [Entitic mass] 28.5 pg Normal 25.7-32.2 [facility] Comment on above: Performed By: #### H A1C #### [facility] [address] [place] [address] MCHC (RBC) [Mass/Vol] 31.4 % Low 32.3-36.5 [facility] Comment on above: Performed By: #### H A1C #### [facility] [address] [place] [address] MCV (RBC) [Entitic vol] 90.6 fL Normal 83.2-95.6 [facility] Comment on above: Performed By: #### H A1C #### [facility] [address] [place] [address] Platelet mean volume (Bld) [Entitic vol] 9.8 fL Normal 8.7-12.0 [facility] Comment on above: Performed By: #### H A1C #### [facility] [address] [place] [address] Platelets (Bld) [#/Vol] 624 thou/cmm High 141-365 [facility] Comment on above: Performed By: #### H A1C #### [facility] [address] [place] [address] RBC (Bld) [#/Vol] 3.09 mil/cmm Low 4.63-6.08 [facility] Comment on above: Performed By: #### H A1C #### [facility] [address] [place] [address] RDW SD 47.3 fl High 36.1-45.8 [facility] Comment on above: Performed By: #### H A1C #### [facility] [address] [place] [address] WBC (Bld) [#/Vol] 11.83 thou/cmm High 4.23-9.07 [facility] Comment on above: Performed By: #### H A1C #### [facility] [address] [place] [id number] NURSING PROGon 06-18-2019 NURSING PROG HNO ID: [id number] Author: Chaparro AaronRn) MATT Naik Service: Nursing Author Type: Registered Nurse Type: Nursing Progress Note Filed: 06/18/2019 4:26 PM Note Text: Dr Del Real notified of low blood glucose level; Ok to give one half of humalog dinner dose if pt appetite is poor. Dr Del Real to advise re thyroid tests also Normal [facility] NURSING PROG HNO ID: [id number] Author: Chaparro AaronRn) Heena, MATT Service: Nursing Author Type: Registered Nurse Type: Nursing Progress Note Filed: 06/18/2019 2:48 PM Note Text: Pt state my blood sugar is low ; blood glucose 51; crackers , milk and peanut butter given to pt. Normal [facility] NURSING PROG HNO ID: [id number] Author: Chaparro AaronRn) MATT Naik Service: Nursing Author Type: Registered Nurse Type: Nursing Progress Note Filed: 06/18/2019 2:08 PM Note Text: Milk and molasses enema give per order; pt up to bsc with 2 assist. Normal [facility] NUTRITIONon 06-18-2019 NUTRITION HNO ID: [id number] Author: Makenzie Tillman Service: Nutrition Therapy Author Type: Registered Dietitian Type: Nutrition Filed: 06/18/2019 1:16 PM Note Text: NUTRITION THERAPY PROGRESS NOTE SERVICE DATE: 06/18/2019 SERVICE TIME: 1:05 PM RECOMMENDED DIAGNOSIS: NO MALNUTRITION IDENTIFIED per Registered Dietitian on 06/16/19 NUTRITION CARE PLAN Increased nutrient needs (protein) related to increased metabolic demand as evidenced by wound healing s/p surgical intervention and visible muscle depletion. Intervention: Recommend script for Boost Glucose Control BID - Encourage PO intake at meals AND carb controlled diet compliance. Patient declined formal diet education, but did review. He also refused written materials. - Continue Boost Glucose Control BID (vary flavors) to provide 250 kcals, 14 grams protein and 23 grams CHO per serving Monitor and Evaluation: Goal: Meet >75% of estimated needs Monitor fluid/electrolyte balance Monitor labs, I/Os, vital signs, weight Discharge Nutrition Recommendations: Diet: Carb controlled Supplements: Continue Boost GC BID Nutrition Follow-up / DM education consult Per HPI: 44 year old male with DM1 with DM neuropathy presented with ankle pain and swelling. Admitted with Sepsis 2/2 LLE cellulitis/abscess and S. Aureus bacteremia. S/p IANDD. S/p PICC placement for IV abx. Currently with constipation. H/o medical non-compliance. Endo, Ortho, ID following. Orders Placed This Encounter DIET CARBOHYDRATE CONTROLLED Standing Status: Standing Number of Occurrences: 1 Order Specific Question: Carbohydrate Control Answer: 3-5 CARBS/MEAL Supplement 1 Frequency: 5. DINNER Supplement 2 Frequency: 3. LUNCH Supplement 1: BOOST GLUCOSE CONTROL CHOCOLATE Supplement 2: BOOST GLUCOSE CONTROL CHOCOLATE Lines and Drains: Central Line Single Lumen 06/17/19 1656 Peripherally Inserted (PICC) Right Arm Through Introducer 4.0 Guyanese (Active) Nutritional Intake: <75% estimated energy needs over the past 9 days. Patient with 25-100% at meals. Only taking 1 boost/day so far. Met with patient to discuss nutritional status and DM education. Patient expressed frustration during his visit. Reports being upset with having a restricted diet, a decreased appetite, liking the boost but only receiving 1 p[per day and would like a different flavor. Discussed DM education, patient refused d/t going to a NH, then back to his aunts where he has limited ability to cook meals and has had education before. 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 Note, top dentures. Per RD at initial assessment patient only eats 1 meal/day. Height: 175.3 cm (5' 9) Admission Weight: 88.5 kg (195 lb) Current Weight: 91 kg (200 lb 9.9 oz) Body mass index is 29.63 kg/m?. overweight Last Wt 06/09/19 : 91 kg (200 lb 9.9 oz) 06/08/19 : 88 kg (194 lb) 06/02/19 : 79.4 kg (175 lb) 05/27/19 : 84.2 kg (185 lb 10 oz) 11/24/18 : 88.5 kg (195 lb) 09/29/18 : 88.5 kg (195 lb) 04/02/18 : 84.8 kg (187 lb) 02/11/17 : 92.4 kg (203 lb 12.8 oz) 11/11/16 : 88.9 kg (196 lb) 11/11/16 : 88.9 kg (196 lb) Recent Labs 06/18/19 0146 GLUC 106* BUN 12 CREAT 0.59* NA 136 K 4.3 CHLOR 100 CO2 31 ALB 1.7* HB 8.8* HCT 28.0* WBC 11.83* Negative Pressure Wound Therapy Leg - Left (Active) Negative Pressure: Wound Filler Foam 06/18/2019 7:20 AM Negative Pressure: Therapy Continuous 06/18/2019 7:20 AM Negative Pressure: mmHg 125 mmHg 06/18/2019 7:20 AM Negative Pressure: Output (mL) 475 06/17/2019 8:07 AM Number of days: Surgical Incision 06/10/19 1233 Leg - Left (Active) Dressing Status Clean, Dry AND Intact 06/18/2019 7:20 AM Frequency of Dressing Change Other: See Comment 06/18/2019 7:20 AM Dressing Change Due 06/20/19 06/17/2019 7:00 PM Dressing /Treatment Type Negative Pressure Wound Therapy 06/18/2019 7:20 AM Incision Closures None 06/17/2019 7:00 PM Drainage Description Serosanguineous 06/18/2019 7:20 AM Drainage Amount Scant 06/18/2019 7:20 AM Edges Irregular 06/17/2019 9:30 AM Hematoma No 06/17/2019 7:00 PM Number of days: 8 MNT Billing Type: Re-assess/15 min 3 units SIGNATURE: Makenzie Tillman RD, LD PATIENT NAME: Tori Cantor DATE: June 18, 2019 TIME: 1:05 PM PAGER: [phone] Normal [facility] PROGRESSon 06-18-2019 PROGRESS HNO ID: [id number] Author: Puneet Leonardo Service: Hospital Medicine Author Type: Physician Type: Progress Notes Filed: 06/18/2019 4:33 PM Note Text: DEPARTMENT OF HOSPITAL MEDICINE PROGRESS NOTE SERVICE DATE: 06/18/2019 SERVICE TIME: 11:49 AM Hospital Medicine/Primary Attending: Puneet Leonardo MD Subjective CHIEF COMPLAINT: Sepsis INTERVAL HPI: Small BM today with milk of molasses enema, refusing lactulose Current Facility-Administered Medications Medication Dose Route Frequency - lisinopril 10 mg tab(s) (ZESTRIL, PRINIVIL) 10 mg ORAL DAILY - pantoprazole DR 40 mg tab(s) (PROTONIX) 40 mg ORAL DAILY - enoxaparin 40 mg injection (LOVENOX) 40 mg SUBCUTANEOUS DAILY - NaCl 0.9% 3-5 mL 3-5 mL INTRAVENOUS q 12 H - ondansetron 4 mg tab(s) (ZOFRAN) 4 mg ORAL q 6 H PRN Or - ondansetron (PF) 4 mg injection (ZOFRAN) 4 mg INTRAVENOUS q 6 H PRN - bisacodyl 10 mg suppository (DULCOLAX) 10 mg RECTAL DAILY PRN - dextrose 40 % 15 g 15 g ORAL PRN Or - glucagon 1 mg injection (GLUCAGEN) 1 mg INTRAMUSCULAR PRN Or - dextrose 50 % 12.5 g injection 12.5 g INTRAVENOUS PRN - insulin lispro pen (rapid acting) (HumaLOG KWIKPEN) SUBCUTANEOUS w MEALS - DULoxetine 20 mg cap(s) (CYMBALTA) 20 mg ORAL BID - ceFAZolin iv piggyback 2 g in D5W (iso-osmotic) 100 mL (ANCEF) 2 g INTRAVENOUS q 8 HR - polyethylene glycol 3350 17 g packet (MIRALAX, GLYCOLAX) 17 g ORAL DAILY - senna-docusate 8.6-50 mg 2 tablet (SENNA-S) 2 tablet ORAL BID - pregabalin 100 mg cap(s) (LYRICA) 100 mg ORAL TID - NaCl 0.9% iv infusion 100 mL/hr INTRAVENOUS CONTINUOUS - HYDROmorphone HCl 0.5 mg injection (DILAUDID) 0.5 mg INTRAVENOUS q 3 H PRN - oxyCODONE IR 15 mg tab(s) (ROXICODONE) 15 mg ORAL q 3 H PRN - insulin lispro 14 Units pen (rapid acting) (HumaLOG KWIKPEN) 14 Units SUBCUTANEOUS w MEALS - insulin NPH human 24 Units injection pen (intermediate acting) (NovoLIN N, HumuLIN N) 24 Units SUBCUTANEOUS BID 8A/BEDTIME - NaCl 0.9% 10 mL 10 mL INTRAVENOUS q 12 H - NaCl 0.9% 20 mL 20 mL INTRAVENOUS PRN - acetaminophen 325-650 mg tab(s) (TYLENOL) 325-650 mg ORAL q 4 H PRN - lactulose 20 g CUP (DUPHALAC, CONSTULOSE) 20 g ORAL TID Objective PHYSICAL EXAM: BP 114/74 Pulse 96 Temp (Src) 98.8 (Oral) Resp 18 Ht 5' 9 (1.75m) Wt 200 lb 9.9 oz (91.0kg) SpO2 99% BMI 29.61 kg/(m2). O2 Therapy: Room Air GENERAL: Alert, no distress, cooperative SKIN: Skin color, texture, turgor normal. No rashes or lesions. EYES: PERRLA, EOMI OROPHARYNX: Negative NECK: No jugulovenous distention, LUNGS: CTAB, no wheeze or crackles CARDIAC: Normal S1 and S2; no rubs, murmurs, or gallops ABDOMEN: Abdomen soft, protuberant, non-tender, BS normal, No masses Perineum: +scrotal swelling with no erythema/warmth, drainage EXTREMITIES: L lower leg with external fixation device, + wound vac, + tenderness of LLE NEURO: Cranial nerves III-XII intact Lines, Drains, and Airways Line Central Line Single Lumen 06/17/19 1656 Peripherally Inserted (PICC) Right Arm Through Introducer 4.0 Guyanese less than 1 day Orthopaedic Device Immobilizer External Fixator -- days DATA: Diagnostic tests reviewed for today's visit: Most recent labs and imaging results. Assessment/Plan Active Problems: #Sepsis 2/2 LLE cellulitis/abscess and S. Aureus bacteremia Sepsis resolved -in setting of L trimalleolar ankle fracture -s/p IANDD and placement of external fixator?06/10, debridement of left leg and ankle 06/15 - ortho and ID input appreciated -continue IV ancef per ID ? #MSSA bacteremia -TTE and JOANNA without evidence of endocarditis -continue IV ancef per ID -monitor cultures # Elevated TSH, high FT4, low T3 With severe constipation - will ask endocrinology for opinion # Severe constipation: - mineral oil enema 06/17, monitor #Hyponatremia- nephrology following ? #Leukocytosis- improving, 2/2 bacteremia and cellulitis/abscess as above. Monitor vitals. Daily CBC. ? #Hyperbilirubinemia: resolved # elevated Alk phos: likely from bone per GI # Hypoalbuminemia: ? 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 # + Hepatitis C antibody with hepatosplenomegaly: GI on consult, needs viral RNA load checked as OP, f/u with GI as outpatient ? #IDDM, uncontrolled, hyperglycemia- ?Discussed importance of compliance. -Endocrine on consult -Lantus and lispro adjusted per Endocrine. Continue SSIC ? #HTN-continue home lisinopril ? # Medical noncompliance ? # IVDA: last use 2 months ago after getting out of halfway Resolved Problems: * No resolved hospital problems. * Medication and Non-Pharmacologic VTE Prophylaxis/Anticoagulant s Anticoagulant AND Antiplatelet Medications (From admission, onward) Start Dose Route Frequency Ordered Stop 06/10/192099 enoxaparin 40 mg injection (LOVENOX) (Medical Risk Categories) 40 mg SUBCUTANEOUS DAILY 06/09/192049 -- 06/09/192099 vte non-pharmacologic prophylaxis - none indicated (de,wy) 06/09/192099 activity - mobilize patient ([place], [place]) VTE Prophylaxis: VTE prophylaxis appropriate Disposition: Extended Care Facility, has insurance authorization through 06/21 Plan of care discussed with: Provider, RN, Patient SIGNATURE: Puneet Leonardo MD PATIENT NAME: Tori Cantor DATE: June 18, 2019 TIME: 11:49 AM PAGER: [phone] Normal [facility] PROGRESS HNO ID: [id number] Author: Ant Meng Service: Nephrology Author Type: Physician Type: Progress Notes Filed: 06/18/2019 11:34 AM Note Text: [facility] Progress Note Subjective/ 44 year old year old male who we are seeing in consultation for hyponatremia. ? Interval Hx: ?Seen and examined Increased PO intake Pain is better controlled NAEON ROS (-) unless noted above Objective/ 06/17/19 1738 06/17/1906/18/19 0309 06/18/19 0837 BP: 120/75 127/77 129/87 114/74 Pulse: 76 99 101 96 Resp: 28 18 18 18 Temp: 36.8 ?C (98.2 ?F) 37 ?C (98.6 ?F) 36.7 ?C (98.1 ?F) 37.1 ?C (98.8 ?F) TempSrc: Oral Oral Oral Oral SpO2: 100% 100% 100% 99% Weight: Height: 24HR INTAKE/OUTPUT: Intake/Output Summary (Last 24 hours) at 06/18/2019 0921 Last data filed at 06/18/2019 0849 Gross per 24 hour Intake 1020 ml Output 2100 ml Net -1080 ml Constitutional: Alert, awake, no apparent distress Head: AT NC Neck: Supple, No JVD, no thyromegaly EENT: eyes nonicteric, mm dry Cardiovascular: RRR, good S1, S2. No murmurs, clicks, or rubs Respiratory: CTA without any wheezing, rhonchi, or rales, no accessory muscle use Abdomen: soft, NT, ND Extremity: +trace BLE peripheral edema, no tremors, wound vac to LLE Neurological: moves all 4 extremities. No focal neuro deficit Psychological: Cooperative throughout assessment. Current Facility-Administered Medications Medication Dose Route Frequency - acetaminophen 325-650 mg tab(s) (TYLENOL) 325-650 mg ORAL q 4 H PRN - lactulose 20 g CUP (DUPHALAC, CONSTULOSE) 20 g ORAL TID - insulin lispro 14 Units pen (rapid acting) (HumaLOG KWIKPEN) 14 Units SUBCUTANEOUS w MEALS - insulin NPH human 24 Units injection pen (intermediate acting) (NovoLIN N, HumuLIN N) 24 Units SUBCUTANEOUS BID 8A/BEDTIME - NaCl 0.9% 10 mL 10 mL INTRAVENOUS q 12 H - NaCl 0.9% 20 mL 20 mL INTRAVENOUS PRN - HYDROmorphone HCl 0.5 mg injection (DILAUDID) 0.5 mg INTRAVENOUS q 3 H PRN - oxyCODONE IR 15 mg tab(s) (ROXICODONE) 15 mg ORAL q 3 H PRN - NaCl 0.9% iv infusion 100 mL/hr INTRAVENOUS CONTINUOUS - polyethylene glycol 3350 17 g packet (MIRALAX, GLYCOLAX) 17 g ORAL DAILY - senna-docusate 8.6-50 mg 2 tablet (SENNA-S) 2 tablet ORAL BID - pregabalin 100 mg cap(s) (LYRICA) 100 mg ORAL TID - ceFAZolin iv piggyback 2 g in D5W (iso-osmotic) 100 mL (ANCEF) 2 g INTRAVENOUS q 8 HR - insulin lispro pen (rapid acting) (HumaLOG KWIKPEN) SUBCUTANEOUS w MEALS - DULoxetine 20 mg cap(s) (CYMBALTA) 20 mg ORAL BID - lisinopril 10 mg tab(s) (ZESTRIL, PRINIVIL) 10 mg ORAL DAILY - pantoprazole DR 40 mg tab(s) (PROTONIX) 40 mg ORAL DAILY - enoxaparin 40 mg injection (LOVENOX) 40 mg SUBCUTANEOUS DAILY - NaCl 0.9% 3-5 mL 3-5 mL INTRAVENOUS q 12 H - ondansetron 4 mg tab(s) (ZOFRAN) 4 mg ORAL q 6 H PRN Or - ondansetron (PF) 4 mg injection (ZOFRAN) 4 mg INTRAVENOUS q 6 H PRN - bisacodyl 10 mg suppository (DULCOLAX) 10 mg RECTAL DAILY PRN - dextrose 40 % 15 g 15 g ORAL PRN Or - glucagon 1 mg injection (GLUCAGEN) 1 mg INTRAMUSCULAR PRN Or - dextrose 50 % 12.5 g injection 12.5 g INTRAVENOUS PRN Data/ CBC, Coags, BMP, Mg, Phos Recent Labs 06/18/19 0146 06/17/19 0331 06/16/19 0150 WBC 11.83* 13.76* 15.49* HB 8.8* 9.7* 8.6* HCT 28.0* 30.5* 26.4* PLT 624* 641* 454* NA 136 134* 136 K 4.3 4.5 4.0 CHLOR 100 98 104 CO2 31 30 27 BUN 12 10 12 CREAT 0.59* 0.58* 0.58* GLUC 106* 181* 187* CA 8.9 9.2 8.2* Assessment/ 1. Hyponatremia (increased free H2O intake, poor osmole intake, pain with ADH increase) 2. 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 Sepsis 2/2 LLE cellulitis (S. Aureus bacteremia) 4. 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 Intravenous drug abuse 6. Left leg splint s/p ( left ankle # ) 7. Hypoalbuminemia Plan/ Na stable Same Rx S/p debridement of left leg and ankle wound Continue oral h2o restriction (1200 ml/day) Continue to encourage protein intake ( Boost glucose control BID) Continue to encourage good PO intake Pain control will suppress the ADH release No other changes Will continue to follow Normal [facility] PROGRESS HNO ID: [id number] Author: Remy Peraza Service: Pain Management Author Type: Physician Type: Progress Notes Filed: 06/18/2019 7:20 AM Note Text: Name: TORI CANTOR Age: [age] year old PAIN MANAGEMENT: s/p IANDD left tibia wounds; external fixation LLE, left trimalleolar ankle fracture/dislocation 05/27; Right foot Charcot deformity, DM neuropathy, IVDA 24H Pain Regimen: Cymbalta 20mg po bid Dilaudid 0.5mg IV x 2 Oxycodone 15 mg ? 2 Lyrica 100 mg x 1 Senna?S, 2 tabs twice a day MiraLAX daily Interval HPI; afebrile VSS no new complaints, pain control probably better status post debridement of left leg and ankle wound, application of wound VAC 06/15. Large area of necrotic skin, fascia and muscle noted, significant blood loss, proximally 500 mL. Still with significant leukocytosis, but improving, H/H reasonably stable. 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 Patient had been noncompliant with nonweightbearing restrictions. He also was seen in the ED 06/08 after removing his own splint; patient left AMA. Patient is a IV vancomycin. He underwent irrigation and debridement on 06/10 the wound VAC and external fixator placement. Blood cultures positive for MSSA bacteremia. JOANNA negative for infective endocarditis. CT left tibia and fibula showing concern for osteomyelitis, possible calf abscess and gas forming infection. Ongoing leukocytosis. Patient on Ancef Prior to admission patient was taking Lyrica 100 mg by mouth 3 times a day. He smokes 1 pack per day. He denies alcohol. He does use marijuana infrequently. He states he had done street drugs for 30 years and then he last used a while ago. He has a history of IV cocaine and methamphetamine. He also admits to history of frequent IV fentanyl use. 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 06/06/2019 2 06/06/2019 Pregabalin 100 MG Capsule 30.00 10 [facility] [place] [id number] Pha ([id number]) [address] [facility] 06/01/2019 2 06/01/2019 Pregabalin 150 MG Capsule 30.00 15 Pe Ailyn [id number] Pha ([id number]) [address] [facility] 05/31/2019 2 05/31/2019 Oxycodone-Acetaminophen 5-325 6.00 1 Da Mil [id number] Pha (6323) [address] [facility] 01/31/2019 1 12/07/2018 Lyrica 150 MG Capsule 90.00 30 Ch Pet [id number] [facility] (2320) 1 2.88 LME [place] 12/07/2018 1 12/07/2018 Lyrica 150 MG Capsule 90.00 30 Ch Pet [id number] [facility] (2320) 0 2.88 [place] 10/05/2018 1 10/04/2018 Hydrocodone-Acetamin 5-325 MG 18.00 3 Ju And [id number] Wal (2320) 0 30.00 [place] 03/03/2018 1 03/03/2018 Lyrica 150 MG Capsule 90.00 30 Ch Pet [id number] [facility] (2320) 0 2.88 [place] 10/28/2017 1 08/25/2017 Lyrica 150 MG Capsule 90.00 30 Ch Pet [id number] [facility] (2320) 1 2.88 [place] 09/11/2017 1 08/25/2017 Lyrica 150 MG Capsule 90.00 30 Ch Pet [id number] [facility] (2320) 0 2.88 [place] 07/04/2017 1 01/14/2017 Lyrica 150 MG Capsule 81.00 27 Ch Pet [id number] Wal (2320) 2 2.88 LME Comm [facility] [place] Current Facility-Administered Medications Medication Dose Route Frequency Provider Last Rate Last Dose - acetaminophen 325-650 mg tab(s) (TYLENOL) 325-650 mg ORAL q 4 H PRN Mo Gant) SHRUTHI Delgado.RETAINING ROOM CUTTER 650 mg at 06/18/19 003 - insulin lispro 14 Units pen (rapid acting) (HumaLOG KWIKPEN) 14 Units SUBCUTANEOUS w MEALS Salina Midha 14 Units at 06/17/19 181 - insulin NPH human 24 Units injection pen (intermediate acting) (NovoLIN N, HumuLIN N) 24 Units SUBCUTANEOUS BID 8A/BEDTIME Salina Midha 24 Units at 06/17/192156 - NaCl 0.9% 10 mL 10 mL INTRAVENOUS q 12 H Puneet Leonardo 10 mL at 06/17/191954 - NaCl 0.9% 20 mL 20 mL INTRAVENOUS PRN Puneet Leonardo - HYDROmorphone HCl 0.5 mg injection (DILAUDID) 0.5 mg INTRAVENOUS q 3 H PRN Remy Palmer Karmen 0.5 mg at 06/18/1921 - oxyCODONE IR 15 mg tab(s) (ROXICODONE) 15 mg ORAL q 3 H PRN Remy Masonus 15 mg at 06/17/191954 - NaCl 0.9% iv infusion 100 mL/hr INTRAVENOUS CONTINUOUS Bryson (Rocky) Daljit 100 mL/hr at 06/16/19 0150 100 mL/hr at 06/16/19 015 - polyethylene glycol 3350 17 g packet (MIRALAX, GLYCOLAX) 17 g ORAL DAILY Bryson (Rocky) Daljit 17 g at 06/17/19 0920 - senna-docusate 8.6-50 mg 2 tablet (SENNA-S) 2 tablet ORAL BID Evangelister (Res) Pinkowski 2 tablet at 06/17/191954 - pregabalin 100 mg cap(s) (LYRICA) 100 mg ORAL TID Evangelister (Res) Pinkowski 100 mg at 06/17/191954 - ceFAZolin iv piggyback 2 g in D5W (iso-osmotic) 100 mL (ANCEF) 2 g INTRAVENOUS q 8 HR Evangelister (Res) Pinkowski 200 mL/hr at 06/17/19 2348 2 g at 06/17/19 234 - insulin lispro pen (rapid acting) (HumaLOG KWIKPEN) SUBCUTANEOUS w MEALS Bryson (Res) Pinkowski 8 Units at 06/17/1943 - DULoxetine 20 mg cap(s) (CYMBALTA) 20 mg ORAL BID Evangelister (Res) Pinkowski 20 mg at 06/17/191954 - lisinopril 10 mg tab(s) (ZESTRIL, PRINIVIL) 10 mg ORAL DAILY Evangelister (Res) Pinkowski 10 mg at 06/17/19918 - pantoprazole DR 40 mg tab(s) (PROTONIX) 40 mg ORAL DAILY Evangelister (Res) Pinkowski 40 mg at 06/17/19925 - enoxaparin 40 mg injection (LOVENOX) 40 mg SUBCUTANEOUS DAILY Evangelister (Res) Pinkowski 40 mg at 06/17/191953 - NaCl 0.9% 3-5 mL 3-5 mL INTRAVENOUS q 12 H Evangelister (Res) Pinkowski 5 mL at 06/16/192042 - ondansetron 4 mg tab(s) (ZOFRAN) 4 mg ORAL q 6 H PRN Arturoopher (Res) Pinkowski Or - ondansetron (PF) 4 mg injection (ZOFRAN) 4 mg INTRAVENOUS q 6 H PRN Arturoopher (Res) Pinkowski 4 mg at 06/16/192039 - bisacodyl 10 mg suppository (DULCOLAX) 10 mg RECTAL DAILY PRN Arturoopher (Res) Pinkowski 10 mg at 06/17/1936 - dextrose 40 % 15 g 15 g ORAL PRN Arturoopher (Res) Pinkowski 15 g at 06/16/192113 Or - glucagon 1 mg injection (GLUCAGEN) 1 mg INTRAMUSCULAR PRN Bryson (Res) Daljit Or - dextrose 50 % 12.5 g injection 12.5 g INTRAVENOUS PRN Bryson (Res) Daljit ibuprofen (MOTRIN) 400 mg tablet, Take 400 mg by mouth every 6 hours as needed., Disp: , Rfl: insulin glargine (LANTUS SOLOSTAR U-100 INSULIN) 100 unit/mL (3 mL) inpn, Inject 24 Units subcutaneously twice daily. While at [facility] , Disp: , Rfl: levoFLOXacin (LEVAQUIN) 750 mg tablet, Take 750 mg by mouth once daily. End date 06-23-19, Disp: , Rfl: enoxaparin (LOVENOX) 40 mg/0.4 mL syrg, Inject 40 mg subcutaneously every 24 hours., Disp: , Rfl: oxyCODONE-acetaminophen (PERCOCET) 5-325 mg tablet, Take 1 tablet by mouth every 6 hours as needed., Disp: , Rfl: insulin detemir U-100 (LEVEMIR FLEXTOUCH U-100 INSULN) 100 unit/mL (3 mL) inpn injection, Inject 30 Units subcutaneously twice daily. While at home, Disp: , Rfl: doxycycline monohydrate (AVIDOXY) 100 mg tablet, Take 1 tablet by mouth twice daily for 14 days. (Patient taking differently: Take 100 mg by mouth twice daily. End date 06-23-19 ), Disp: 28 tablet, Rfl: 0 acetaminophen (TYLENOL) 325 mg tablet, Take 2 tablets by mouth every 6 hours as needed., Disp: , Rfl: insulin lispro (HUMALOG KWIKPEN INSULIN) 100 unit/mL inpn, Inject 14 Units subcutaneously three times daily before meals. (Patient taking differently: Inject subcutaneously three times daily before meals. Sliding scale 100-150: 2 units 151-200: 4 units 201-250: 6 units 251-300: 8 units 301-350: 10 units 351-400: 12 units 401-450: 14 units <70 or >400 call MD ), Disp: , Rfl: lisinopril (ZESTRIL, PRINIVIL) 10 mg tablet, Take 1 tablet by mouth once daily for 15 days., Disp: 15 tablet, Rfl: 0, 05/26/[address] (PROTONIX) 40 mg tablet, Take 40 mg by mouth once daily. , Disp: , Rfl: , 05/26/2019 Lancets lancets, Use as instructed, Disp: 100 Each, Rfl: 11, Taking Insulin Dudley, Disposable, (BD ULTRAFINE III MINI PEN) 31 gauge x 3/16 ndle, USE WITH INSULIN PENS 4TIMES DAILY, Disp: 400 Each, Rfl: 3, Taking blood sugar diagnostic (ONETOUCH ULTRA TEST) test strip, CHECK BLOOD SUGARS 6 TIMES DAILY, Disp: 200 Strip, Rfl: 3, Taking DULoxetine (CYMBALTA) 30 mg capsule, Take 1 capsule by mouth once daily. (Patient taking differently: Take 120 mg by mouth once daily. ), Disp: , Rfl: 0, 05/25/2019 pregabalin (LYRICA) 150 mg capsule, Take 100 mg by mouth three times daily. , Disp: , Rfl: , Taking cyclobenzaprine (FLEXERIL) 5 mg tablet, Take 5 mg by mouth every 8 hours as needed., Disp: , Rfl: Social History Tobacco Use - Smoking status: Current Every Day Smoker Packs/day: 1.00 Types: Cigarettes - Smokeless tobacco: Never Used Substance Use Topics - Alcohol use: Yes Comment: socially - Drug use: Yes Types: Cocaine, Amphetamines Comment: hist of cocaine and marajuana use, fentanyl FAMILY HISTORY Problem Relation Age of Onset - Hypertension Mother - Diabetes Mother - Stroke Mother - Heart Mother CHF - Cataract Mother - Hypertension Father - COPD Father - Emphysema Father PAST SURGICAL HISTORY Procedure Laterality Date - IR VASCULAR ACCESS TEAM PICC INSERTION RADIO 06/17/2019 - NONE ROS: All of the following reviewed and negative except as noted below: GENERAL: no fever, chills, sweats, weight loss, fatigue, generalized weakness HEENT: no headache, vision changes, eye discomfort, hearing change, ear discomfort, sinus pain, nasal discharge or congestion, oral lesions, soreness, dental problem NECK: no adenopathy, discomfort, change in ROM CHEST: no shortness of breath, dyspnea on exertion, wheezing, cough, sputum production or chest pain HEART: no chest pain, palpitations, syncope ABDOMEN: no nausea, vomiting, constipation, diarrhea, abdominal pain : no dysuria, urgency, frequency, history of stones, incontinence NEURO: no confusion or alteration in consciousness, slurred speech, seizure, focal weakness EXTREMITIES: See history of present illness HEME: no new adenopathy, bruises, petechiae PSYCH: no depression, anxiety, agitation PAIN PSYCHIATRIC EXAM: GENERAL: alert, oriented to person, place, time JUDGMENT AND INSIGHT: intact APPEARANCE: neatly groomed DEMEANOR: coooperative, not hostile, mistrustful, preoccupied, or demanding ACTIVITY: normal, not hyperactive or hypoactive, no tremors, tics EYE CONTACT: normal SPEECH: normal, rate, volume, articulation, coherence, spontaneity MOOD: normal, without overt sadness, grief, anxiety, appropriate to situation IDEATION: normal and without suicidal or homicidal ideation MEMORY: intact PHYSICAL EXAMINATION: GENERAL: well nourished and developed; no acute distress; alert and oriented x 3; intact judgement and insight HEENT: no evidence of trauma; cranial nerves intact; eyes clear EOMI; no hearing deficits apparent; nasal passages unremarkable; throat and mucous membranes clear NECK: supple without lymphadenopathy; no JVD; no thyromegaly CHEST: clear bilaterally to auscultation; normal chest movement; no rales or rhonchi HEART: regular rate and rhythm, normal S1 and S2, no murmurs, clicks, rubs, or gallops ABDOMEN: soft; nondistended; bowel sounds present; no hepatomegaly; no splenomegaly; no tenderness EXTREMITIES: no evidence of clubbing; no cyanosis; left leg with wound VAC; intact external fixator 1+ edema NEURO: cranial nerves intact; no focal deficits; no confusion; no tremor; sensorium normal SKIN: no decubitus lesions HEME: no bruising; no adenopathy PSYCH: no evidence of depression; no anxiety; no agitation; no apparent hallucinations BP 129/87 Pulse 101 Temp 36.7 ?C (98.1 ?F) (Oral) Resp 18 Ht 175.3 cm (5' 9) Wt 91 kg (200 lb 9.9 oz) SpO2 100% BMI 29.63 kg/m? BMI 29.63 kg/(m2) Date 06/14/19699 - 06/15/19 0659 Shift 3623-9109 4519-6322 4991-6806 24 Hour Total INTAKE Shift Total OUTPUT Urine 1300 1300 Shift Total 1300 1300 Weight (kg) 91 91 91 91 Date 06/13/19699 - 06/14/1965806/14/19699 - 06/15/19 0659 Shift 9510-8126 8417-0421 9222-5273 24 Hour Total 2084-5944 8893-1661 5695-8235 24 Hour Total INTAKE IV 700 700 Volume (mL) (NaCl 0.9% iv infusion) 600 600 Volume (mL) (ceFAZolin iv piggyback 2 g in D5W (iso-osmotic) 100 mL (ANCEF)) 100 100 Shift Total 700 700 OUTPUT Urine 179 841 1651 1300 1300 Void (ml) 511 211 3461 1300 1300 Drains 0 0 Negative Pressure: Output (mL) (Negative Pressure Wound Therapy Ankle -Left) 0 0 # of BMs Number of BMs 0 x 0 x Shift Total 400 750 0 1150 1300 1300 Weight (kg) 91 91 91 91 91 91 91 91 ABNORMAL/NEW FINDINGS: NONE RADIOLOGY/DIAGNOSTICS: LABORATORY: CBC: Recent Labs 06/18/19145 WBC 11.83* RBC 3.09* HB 8.8* HCT 28.0* PLT 624* MCV 90.6 MCH 28.5 MPV 9.8 RDW 14.4 CMP: Recent Labs 06/18/19145 NA 136 K 4.3 CHLOR 100 CO2 31 BUN 12 CREAT 0.59* GLUC 106* TPROT 6.7 CA 8.9 TBILI 0.3 ALKPHOS 128* ALT 8* AST 11* ANION 9 Heme: No results for input(s): RETICP, ABSRETIC, LD, VIKRAM, FE, TIBC, TRANSFERSAT in the last 24 hours. 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 ([facility]) Hypertension Gerd (Gastroesophageal Reflux Disease) Microalbuminuria History of Diabetic Gastroparesis Diabetic Polyneuropathy Associated With Type 1 Diabetes Mellitus (Hcc) Depression With Anxiety Charcot's Joint of Right Foot Hyperlipidemia Hep C W/O Coma, Chronic ([facility]) History of Drug Abuse in Remission ([facility]) Ivdu (Intravenous Drug User) Tobacco Abuse Left Ankle Joint Deformity Hyperglycemia Nicotine use disorder, F17.2 Closed Fracture of Left Ankle Sepsis ([facility]) PLAN: Status post debridement of left leg and ankle wounds, external fixator placement and wound VAC 06/10; repeat debridement, wound VAC placement 06/15 Left trimalleolar ankle fracture/dislocation on 05/27; noncompliant with nonweightbearing and wound care On Ancef for MSSA bacteremia; concern for osteomyelitis of tibia and fibula. JOANNA negative for endocarditis. CT also demonstrated concern for abscess along posterior tibia. History of polysubstance abuse including IV drug abuse; patient denies recent abuse Dilaudid 0.5 mg IV every 3 hours when necessary breakthrough pain Increase Oxycodone 15 milligram every 3 hours when necessary severe pain Has not been using. Cymbalta 20 mg twice a day Change Lyrica 100 mg by mouth 3 times a day Senna S2 by mouth twice a day, MiraLAX daily, Dulcolax suppository as needed Still no BM despite all above and an enema. We have to do lactulose. Oxycodone prescription placed in chart. Plans to return to senior living facility at discharge noted Remy Peraza M.D. Normal [facility] PROGRESS HNO ID: [id number] Author: Gareth Uriarte Service: Orthopaedic Surgery Author Type: Physician Type: Progress Notes Filed: 06/19/2019 9:54 AM Note Text: ORTHOPAEDIC SURGERY POSTOP DAILY PROGRESS NOTE ASSESSMENT: 44 year old male POD #3 status-post IANDD of left leg and ankle wound, application of wound vac; POD #8 IANDD left leg and ankle wound, application of wound vac, application of ex fix. PLAN: Management per primary Maintain ex fix LLE Pain Medications:?Per pain management? DVT prophylaxis:?per primary, ok for dvt chemoppx from orthopaedic standpoint Perioperative Antibiotics:?per primary, Ancef 2g Q8H Diet Plan:?Diet carbohydrate controlled Mobilization, Range of Motion, and Weight bearing:?NWB LLE, Ex fix in place Dressing Management:?Pin site care: xeroform and kerlix daily changes, wound vac changes per wound center Est. Length Of Stay / Discharge Destination:?Per primary Any Other Issues??Sepsis, hyponatremia, Diabetes, Hepatitis C, IDDM Consults: Endocrinology, Pain management, ID, nephrology, CV, PT, OT, care management INTERVAL HPI: No acute events overnight. Pain controlled. Denies fevers and chills. Denies chest pain and shortness of breath. OBJECTIVE: BP 129/87 Pulse 101 Temp 36.7 ?C (98.1 ?F) (Oral) Resp 18 Ht 175.3 cm (5' 9) Wt 91 kg (200 lb 9.9 oz) SpO2 100% BMI 29.63 kg/m? Exam: General: NAD, AOx3 Left Lower Extremity: Wound vac in place, dressing with only mild medial serosanguinous saturation Ex fix in place SILT damico/sa/sp/dp/t though significantly diminished at baseline. +DF/PF/EHL motor function DP pulse palpable, foot warm with pulses Compartments soft, compressible. Tolerates passive stretch of digits. Recent Labs 06/18/19 0146 06/17/19 0331 06/16/19 0150 CREAT 0.59* 0.58* 0.58* BUN 12 10 12 NA 136 134* 136 K 4.3 4.5 4.0 CHLOR 100 98 104 CO2 31 30 27 ANION 9 11 9 GLUC 106* 181* 187* CA 8.9 9.2 8.2* ALB 1.7* 1.9* 1.7* AST 11* 14* 11* ALT 8* 12 15 ALKPHOS 128* 161* 159* TBILI 0.3 0.5 0.4 WBC 11.83* 13.76* 15.49* HB 8.8* 9.7* 8.6* HCT 28.0* 30.5* 26.4* PLT 624* 641* 454* COAGS: APTT 27.6 06/09/2019 PT INR 1.09 06/10/2019 SED RATE/CRP: Sed Rate, Chrisren 84 06/08/2019 CRP 23.80 06/08/2019 Imaging: No new orthopaedic imaging acquired at this time. Shiv Trimble MD Orthopaedic Surgery 06/18/2019 6:38 AM Agree with resident assessment and plan. Normal [facility] THERAPY NTon 06-18-2019 THERAPY NT HNO ID: [id number] Author: Evie (PtRosalina Perry Service: Physical Therapy Author Type: Physical Therapist Type: Therapy (PT/OT/Speech/Resp) Filed: 06/18/2019 2:28 PM Note Text: PHYSICAL THERAPY MISSED VISIT SERVICE DATE: 06/18/2019 SERVICE TIME: 1425 to 1425 ROOM: [id number] Attempted Treatment. Patient not seen due to Declined. Pt using bedside commode, needing increased time and unable to participate with therapy currently. Will cancel for today as this was the second attempt. Will continue to follow. SIGNATURE: Evie [place], PT PATIENT NAME: Tori Cantor DATE: June 18, 2019 TIME: 2:27 PM [facility] THERAPY NT HNO ID: [id number] Author: Evie (Pt) [place] Service: Physical Therapy Author Type: Physical Therapist Type: Therapy (PT/OT/Speech/Resp) Filed: 06/18/2019 11:17 AM Note Text: PHYSICAL THERAPY MISSED VISIT SERVICE DATE: 06/18/2019 SERVICE TIME: 1112 to 1114 ROOM: [place] [address] Attempted Treatment. Patient not seen due to Declined. Pt declining stating he is worn out. Pt was educated on the role of PT and importance of assisted mobility for strength and independence gains. Pt states he may be agreeable later today. Will re-attempt as able and continue to follow. SIGNATURE: Evie Perry PT PATIENT NAME: Tori Cantor DATE: June 18, 2019 TIME: 11:16 AM [facility] CASE MANAGEMon 06-17-2019 CASE MANAGEM HNO ID: [id number] Author: Kaykay (Rn) MATT Azevedo Service: ? Author Type: Registered Nurse Type: Care Mgt Progress Note Filed: 06/17/2019 11:10 AM Note Text: CARE MANAGEMENT PROGRESS NOTE SERVICE DATE: 06/17/2019 SERVICE TIME: 11:09 AM LOS: 8 days Needs Prior to Discharge: Discharge Prescriptions;Discharge Transportation Precert obtained and good thru 06/21. Disch Plan: [place] [facility]. SIGNATURE: Kaykay Azevedo RN PATIENT NAME: Tori Cantor DATE: June 17, 2019 TIME: 11:08 AM PAGER/CONTACT #: [phone] [facility] CONSULT PROGon 06-17-2019 CONSULT PROG HNO ID: [id number] Author: Salina Geronimo Service: Endocrinology Author Type: Physician Type: Consult Progress Note Filed: 06/17/2019 9:20 AM Note Text: ENDOCRINOLOGY CONSULT PROGRESS NOTE SERVICE DATE: 06/17/2019 SERVICE TIME: 9:10 AM Subjective INTERVAL HPI: Following for DM type 1. Adm with left ankle fracture after a fall, has left leg infection, cellulitis. Notes and orders reviewed. Patient refused insulin 06/14 am; was NPO for JOANNA; agreed to take NPH 26 units and humalog 10 units x1; readjusted doses as he is so afraid of hypoglycemia and will refuse to take his insulin! Went to OR again on 06/15. Diet: DIET CARBOHYDRATE CONTROLLED p.o intake erratic, states following diet. Activity:Bedrest Review of Systems: PAIN ASSESSMENT: c/o left ankle/leg pain, severe at times GENERAL: has fatigue, malaise, no fever/chills RESPIRATORY: Negative for cough, hemoptysis, wheezing, COPD, dyspnea or shortness of breath CARDIOVASCULAR: Negative for chest pain, leg swelling, hypertension, CHF or palpitations GI: occ nausea, appetite decreased ENDOCRINE: Negative for cold or heat intolerance, polyuria or polydipsia. The remainder of the review of systems is negative. Current Facility-Administered Medications Medication Dose Route Frequency - lisinopril 10 mg tab(s) (ZESTRIL, PRINIVIL) 10 mg ORAL DAILY - pantoprazole DR 40 mg tab(s) (PROTONIX) 40 mg ORAL DAILY - enoxaparin 40 mg injection (LOVENOX) 40 mg SUBCUTANEOUS DAILY - NaCl 0.9% 3-5 mL 3-5 mL INTRAVENOUS q 12 H - ondansetron 4 mg tab(s) (ZOFRAN) 4 mg ORAL q 6 H PRN Or - ondansetron (PF) 4 mg injection (ZOFRAN) 4 mg INTRAVENOUS q 6 H PRN - bisacodyl 10 mg suppository (DULCOLAX) 10 mg RECTAL DAILY PRN - dextrose 40 % 15 g 15 g ORAL PRN Or - glucagon 1 mg injection (GLUCAGEN) 1 mg INTRAMUSCULAR PRN Or - dextrose 50 % 12.5 g injection 12.5 g INTRAVENOUS PRN - insulin lispro pen (rapid acting) (HumaLOG KWIKPEN) SUBCUTANEOUS w MEALS - DULoxetine 20 mg cap(s) (CYMBALTA) 20 mg ORAL BID - ceFAZolin iv piggyback 2 g in D5W (iso-osmotic) 100 mL (ANCEF) 2 g INTRAVENOUS q 8 HR - insulin NPH human 26 Units injection pen (intermediate acting) (NovoLIN N, HumuLIN N) 26 Units SUBCUTANEOUS BID 8A/BEDTIME - insulin lispro 16 Units pen (rapid acting) (HumaLOG KWIKPEN) 16 Units SUBCUTANEOUS w MEALS - polyethylene glycol 3350 17 g packet (MIRALAX, GLYCOLAX) 17 g ORAL DAILY - senna-docusate 8.6-50 mg 2 tablet (SENNA-S) 2 tablet ORAL BID - pregabalin 100 mg cap(s) (LYRICA) 100 mg ORAL TID - NaCl 0.9% iv infusion 100 mL/hr INTRAVENOUS CONTINUOUS - HYDROmorphone HCl 0.5 mg injection (DILAUDID) 0.5 mg INTRAVENOUS q 3 H PRN - oxyCODONE IR 15 mg tab(s) (ROXICODONE) 15 mg ORAL q 3 H PRN - lactulose 20 g CUP (DUPHALAC, CONSTULOSE) 20 g ORAL TID - mineral oil 133 mL enema (FLEET MINERAL OIL ENEMA) 133 mL RECTAL ONCE Objective PHYSICAL EXAM: GENERAL: awake, alert; mild distress due to pain (wound care dressing pt) SKIN: no rash/ bruising OROPHARYNX: moist LUNGS: clear CVS: RRR EXTREMITIES: left foot in a bandage and external fixation frame; right foot charcot's deformity, no ulcers BP 140/76 Pulse 92 Temp (Src) 97.9 (Oral) Resp 16 Ht 5' 9 (1.75m) Wt 200 lb 9.9 oz (91.0kg) SpO2 95% BMI 29.61 kg/(m2). O2 Therapy: Room Air DATA: Diagnostic tests reviewed for today's visit: Most recent labs and imaging results. Last 24 hr BS reviewed. Recent Labs 06/17/19 0659 06/17/19 0331 06/16/19 2140 06/16/19 2103 06/16/19201306/16/19 1610 06/16/19 0150 06/15/19 0208 GLUC -- 181* -- -- -- -- -- 187* -- 145* GLUCOSEMETER 306* -- 77 68* 65* 71 < > -- < > -- < > = values in this interval not displayed. 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 Home Rx is Levemir 25 units bid and Novolog 14 units tid with SSI. Was on 70/30 from 03/09 till 05/18 (while incarcerated) Saw [facility] in [place] in September,; due for appt? Started on lantus 25 units bid and Humalog 20 units tid here. BS still very high, increased Lantus to 30 units bid and Humalog to 24 unist tid changed to NPH 30 units bid and humalog 30 units qac tid pluc sorrection.Patient refused insulin 06/14 am; was NPO for JOANNA; then agreed to take NPH 26 units and humalog 10 units x1; readjusted doses as he is so afraid of hypoglycemia and refuses to take insulin; decreased NPH to / bid and humalog 16 units qac tid plus correction on 06/14. Had low BS at hs, FBS high today after NPH held by RN, I WAS NOT INFORMED. Reduce NPH to 24-0-0-24 and Humalog to 14 units tid (-4 if eats <30%) from today. Cellulitis/abscess left ankle, s/p debridement and external fixation of ankle fracture on 06/10. JOANNA normal. Went to OR again on 06/15 for debridement. Hyponatremia, renal on board, evidence of SIADH, Na 134(136)(133)(130)(128)(1 24)(126) IVDU (intravenous drug user) POA: Yes Assessment AND Plan: hx Closed fracture of left ankle POA: Yes Assessment AND Plan: trimalleolar, 3 weeks ago after a fall SIGNATURE: Salina Geronimo MD PATIENT NAME: Tori Cantor DATE: June 17, 2019 TIME: 9:20 AM PAGER: [phone] Normal [facility] Comprehensive Panelon 2018 ALP [Catalytic activity/Vol] 161 U/L High 45-117 [facility] Comment on above: Performed By: #### H A1C #### [facility] [address] [place] [id number] Bilirubin [Mass/Vol] 0.5 mg/dL Normal 0.2-1.0 [facility] Comment on above: Performed By: #### H A1C #### [facility] [address] [place], [place] [address] Protein [Mass/Vol] 7.5 g/dL Normal 6.4-8.2 [facility] Comment on above: Performed By: #### H A1C #### [facility] [address] [place], [place] [address] ALT [Catalytic activity/Vol] 12 U/L Normal 12-78 [facility] Comment on above: Performed By: #### H A1C #### [facility] [address] [place], [place] [address] AST [Catalytic activity/Vol] 14 U/L Low 15-37 [facility] Comment on above: Performed By: #### H A1C #### [facility] [address] [place], [place] [address] Creatinine [Mass/Vol] 0.58 mg/dL Low 0.67-1.17 [facility] Comment on above: Performed By: #### H A1C #### [facility] [address] [place], [place] [address] Glucose [Mass/Vol] 181 mg/dL High 70-99 [facility] Comment on above: Performed By: #### H A1C #### [facility] [address] [place], [place] [address] Albumin [Mass/Vol] 1.9 g/dL Low 3.4-5.0 [facility] Comment on above: Performed By: #### H A1C #### [facility] [address] [place], [place] [address] Anion gap [Moles/Vol] 11 mmol/L Normal 8-16 [facility] Comment on above: Performed By: #### H A1C #### [facility] [address] [place], [place] [address] Calcium [Mass/Vol] 9.2 mg/dL Normal 8.5-10.1 [facility] Comment on above: Performed By: #### H A1C #### [facility] [address] [place], [place] [address] CO2 [Moles/Vol] 30 mmol/L Normal 21-32 [facility] Comment on above: Performed By: #### H A1C #### [facility] [address] [place], [place] [address] Urea nitrogen [Mass/Vol] 10 mg/dL Normal 7-18 [facility] Comment on above: Performed By: #### H A1C #### [facility] [address] [place] [address] Chloride [Moles/Vol] 98 mmol/L Normal 98-107 [facility] Comment on above: Performed By: #### H A1C #### [facility] [address] [place], [place] [address] Potassium [Moles/Vol] 4.5 mmol/L Normal 3.5-5.1 [facility] Comment on above: Performed By: #### H A1C #### [facility] [address] [place] [address] Sodium [Moles/Vol] 134 mmol/L Low 136-145 [facility] Comment on above: Performed By: #### H A1C #### [facility] [address] [place] [address] Free Thyroxineon 06-17-2019 Free T4 [Mass/Vol] 1.54 ng/dL High 0.76-1.46 [facility] Comment on above: Performed By: #### H A1C #### [facility] [address] [place] [address] Hemogramon 06-17-2019 Erythrocyte distribution width (RBC) [Ratio] 14.7 % High 11.6-14.4 [facility] Comment on above: Performed By: #### G LMET #### [facility] [address] [place] [address] Hematocrit (Bld) [Volume fraction] 30.5 % Low 40.1-51.0 [facility] Comment on above: Performed By: #### G LMET #### [facility] [address] [place] [address] Hemoglobin (Bld) [Mass/Vol] 9.7 g/dL Low 13.7-17.5 [facility] Comment on above: Performed By: #### G LMET #### [place] [address] MCH (RBC) [Entitic mass] 28.6 pg Normal 25.7-32.2 [facility] Comment on above: Performed By: #### G LMET #### [place] [address] MCHC (RBC) [Mass/Vol] 31.8 % Low 32.3-36.5 [facility] Comment on above: Performed By: #### G LMET #### [facility] [address] [place] [id number] MCV (RBC) [Entitic vol] 90.0 fL Normal 83.2-95.6 [facility] Comment on above: Performed By: #### G LMET #### [facility] [address] [place] [address] Platelet mean volume (Bld) [Entitic vol] 10.2 fL Normal 8.7-12.0 [facility] Comment on above: Performed By: #### G LMET #### [place] [address] Platelets (Bld) [#/Vol] 641 thou/cmm High 141-365 [facility] Comment on above: Performed By: #### G LMET #### [place] [address] RBC (Bld) [#/Vol] 3.39 mil/cmm Low 4.63-6.08 [facility] Comment on above: Performed By: #### G LMET #### [place] [address] RDW SD 47.6 fl High 36.1-45.8 [facility] Comment on above: Performed By: #### G LMET #### [place] [id number] WBC (Bld) [#/Vol] 13.76 thou/cmm High 4.23-9.07 [facility] Comment on above: Performed By: #### G LMET #### [place] [id number] NURSING PROGon 06-17-2019 NURSING PROG HNO ID: [id number] Author: Miguelangel AaronRn) MATT Zacarias Service: Nursing Author Type: Registered Nurse Type: Nursing Progress Note Filed: 06/17/2019 11:00 AM Note Text: Nursing Progress Note Patient Name: Tori Cantor Patient Location: [id number] 1 Daily Note:Dr. Leonardo notified that unable to obtain IV access after attempt x 2 by 2 Rns and attempt from national sales manager. PICC order to be placed. This note was completed by: Miguelangel Zacarias RN [facility] PROCEDUREon 06-17-2019 PROCEDURE HNO ID: [id number] Author: Marilyn (Rn) MATT Canada Service: PICC Team Author Type: Registered Nurse Type: Procedures Filed: 06/17/2019 5:11 PM Note Text: PICC NURSE INSERTION NOTE DATE OF PROCEDURE: June 17, 2019 TIME OF PROCEDURE: 161 ORDERING PHYSICIAN: Gabriel INFORMED CONSENT: Obtained per hospital policy. INDICATION FOR LINE PLACEMENT: IV therapy over six days Multiple IV attempts and restarts CONDITION OF LINE PLACEMENT: Sterile PRIMARY PROCEDURALIST: Marilyn Canada RN SOFTWARE SUPPORT TECHNICIAN: Shirley Garcia RN PRE-PROCEDURE REVIEW ALLERGIES No Known Allergies Known History of Venous Thrombosis: No Known History of Permanent Pacemaker or Automated Implanted Cardiac Device: No Previous Breast Surgery of Lymph Node Dissection: No History of Renal Disease with Arterio-Venous Fistula in Place or Planned: No Ultrasound Assessment Complete: Yes PROCEDURE NARRATIVE SAFE PRACTICE Hand Hygiene per Hospital Policy: Yes Skin Preparation Unit Dose Applicator Used: Chloraprep (CHG + alcohol), allowed to dry. Procedure Surface Cleansed with Antimicrobial Wipes: Yes Barriers Used by Proceduralist and all Assisting Personnel: Yes UNIVERSAL PROTOCOL / SAFETY CHECKLIST Procedure to be performed: Peripherally Inserted Central Catheter Sign in Communication: Completed Time Out: Team Confirms the Correct Patient, Correct Procedure, Correct Site and Site Marking, Correct Position (if applicable), Prep and Dry Time (if applicable). Time: 1615 Affirmation of Time Out: N/A Sign Out Discussion: Completed Marilyn Canada RN CATHETER PLACEMENT Brand: Bard Lot: [id number] Number of Lumens: 1 Type of PICC: Power Injectable PICC Lumen Size: 4 Guyanese PLACEMENT TECHNIQUE Lidocaine: Yes. Strength: 1% Volume 1.5cc Modified Seldinger Technique Used to Place Line via the Right Basilic Ultrasound Guidance: Yes Number of Attempts at Insertion: 1 Ensured control of guidewire during all aspects of the procedure: Yes Accounted for entire guidewire upon removal: Yes Internal Length: 44 cm External Length: 2 cm Trim Length: 44 cm Mid-Arm Circumference Above Insertion Site: 29 centimeters Post Insertion Pain Level Related to Procedure: 0 Action Taken to Address Pain: None needed Verified Placement: Blood return and Tip location system or device indicates the tip is located in the SVC/CAJ. Line was Flushed with 20 cc normal saline Line Secured with: Securement device-StatLock Sterile Dressing Applied and Dated: Yes-Biopatch applied at site Sterile Caps on all Ports Prior to Leaving Procedure Area: Yes SPECIMENS: None COMPLICATIONS: None Patient Education Materials: Placed in chart QUESTIONS or PROBLEMS: Call [phone] SIGNATURE: Marilyn Canada RN PATIENT NAME: Tori Cantor DATE: June 17, 2019 TIME: 4:59 PM PAGER/CONTACT PHONE: [facility] PROGRESSon 06-17-2019 PROGRESS HNO ID: [id number] Author: Puneet Leonardo Service: Hospital Medicine Author Type: Physician Type: Progress Notes Filed: 06/17/2019 3:08 PM Note Text: DEPARTMENT OF HOSPITAL MEDICINE PROGRESS NOTE SERVICE DATE: 06/17/2019 SERVICE TIME: 2:58 PM Hospital Medicine/Primary Attending: Puneet Leonardo MD Subjective CHIEF COMPLAINT: Sepsis INTERVAL HPI: Still constipated, has been for weeks, no fever, left leg pain improving Current Facility-Administered Medications Medication Dose Route Frequency - lisinopril 10 mg tab(s) (ZESTRIL, PRINIVIL) 10 mg ORAL DAILY - pantoprazole DR 40 mg tab(s) (PROTONIX) 40 mg ORAL DAILY - enoxaparin 40 mg injection (LOVENOX) 40 mg SUBCUTANEOUS DAILY - NaCl 0.9% 3-5 mL 3-5 mL INTRAVENOUS q 12 H - ondansetron 4 mg tab(s) (ZOFRAN) 4 mg ORAL q 6 H PRN Or - ondansetron (PF) 4 mg injection (ZOFRAN) 4 mg INTRAVENOUS q 6 H PRN - bisacodyl 10 mg suppository (DULCOLAX) 10 mg RECTAL DAILY PRN - dextrose 40 % 15 g 15 g ORAL PRN Or - glucagon 1 mg injection (GLUCAGEN) 1 mg INTRAMUSCULAR PRN Or - dextrose 50 % 12.5 g injection 12.5 g INTRAVENOUS PRN - insulin lispro pen (rapid acting) (HumaLOG KWIKPEN) SUBCUTANEOUS w MEALS - DULoxetine 20 mg cap(s) (CYMBALTA) 20 mg ORAL BID - ceFAZolin iv piggyback 2 g in D5W (iso-osmotic) 100 mL (ANCEF) 2 g INTRAVENOUS q 8 HR - polyethylene glycol 3350 17 g packet (MIRALAX, GLYCOLAX) 17 g ORAL DAILY - senna-docusate 8.6-50 mg 2 tablet (SENNA-S) 2 tablet ORAL BID - pregabalin 100 mg cap(s) (LYRICA) 100 mg ORAL TID - NaCl 0.9% iv infusion 100 mL/hr INTRAVENOUS CONTINUOUS - HYDROmorphone HCl 0.5 mg injection (DILAUDID) 0.5 mg INTRAVENOUS q 3 H PRN - oxyCODONE IR 15 mg tab(s) (ROXICODONE) 15 mg ORAL q 3 H PRN - mineral oil 133 mL enema (FLEET MINERAL OIL ENEMA) 133 mL RECTAL ONCE - insulin lispro 14 Units pen (rapid acting) (HumaLOG KWIKPEN) 14 Units SUBCUTANEOUS w MEALS - insulin NPH human 24 Units injection pen (intermediate acting) (NovoLIN N, HumuLIN N) 24 Units SUBCUTANEOUS BID 8A/BEDTIME - lidocaine 10 mg/mL (1 %) 10-20 mg injection (XYLOCAINE) 1-2 mL INTRADERMAL ONCE - NaCl 0.9% 10 mL 10 mL INTRAVENOUS q 12 H - NaCl 0.9% 20 mL 20 mL INTRAVENOUS PRN Objective PHYSICAL EXAM: BP 153/86 Pulse 98 Temp (Src) 98.1 (Oral) Resp 18 Ht 5' 9 (1.75m) Wt 200 lb 9.9 oz (91.0kg) SpO2 99% BMI 29.61 kg/(m2). O2 Therapy: Room Air GENERAL: Alert, no distress, cooperative SKIN: Skin color, texture, turgor normal. No rashes or lesions. EYES: PERRLA, EOMI OROPHARYNX: Negative NECK: No jugulovenous distention, LUNGS: CTAB, no wheeze or crackles CARDIAC: Normal S1 and S2; no rubs, murmurs, or gallops ABDOMEN: Abdomen soft, protuberant, non-tender, BS normal, No masses Perineum: +scrotal swelling with no erythema/warmth, drainage EXTREMITIES: L lower leg with external fixation device, + wound vac, + tenderness of LLE but less warmth on 06/17, NEURO: Cranial nerves III-XII intact Lines, Drains, and Airways Orthopaedic Device Immobilizer External Fixator -- days DATA: Diagnostic tests reviewed for today's visit: Most recent labs and imaging results. Assessment/Plan Active Problems: #Sepsis 2/2 LLE cellulitis/abscess and S. Aureus bacteremia -in setting of L trimalleolar ankle fracture -s/p IANDD and placement of external fixator?06/10, debridement of left leg and ankle 06/15 - ortho and ID input appreciated -continue IV ancef per ID - PICC line to be placed 06/17 ? #MSSA bacteremia -TTE and JOANNA without evidence of endocarditis -continue IV ancef per ID -monitor cultures # Elevated TSH, high FT4, low T3 With severe constipation - will ask endocrinology for opinion # Severe constipation: - mineral oil enema 06/17, monitor #Hyponatremia- nephrology following ? #Leukocytosis- improving, 2/2 bacteremia and cellulitis/abscess as above. Monitor vitals. Daily CBC. ? #Hyperbilirubinemia: resolved # elevated Alk phos: likely from bone per GI # Hypoalbuminemia: ? 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 # + Hepatitis C antibody with hepatosplenomegaly: GI on consult, needs viral RNA load checked as OP, f/u with GI as outpatient ? #IDDM, uncontrolled, hyperglycemia- ?Discussed importance of compliance. -Endocrine on consult -Lantus and lispro adjusted per Endocrine. Continue SSIC ? #HTN-continue home lisinopril ? # Medical noncompliance ? # IVDA: last use 2 months ago after getting out of halfway Resolved Problems: * No resolved hospital problems. * Medication and Non-Pharmacologic VTE Prophylaxis/Anticoagulant s Anticoagulant AND Antiplatelet Medications (From admission, onward) Start Dose Route Frequency Ordered Stop 06/10/192099 enoxaparin 40 mg injection (LOVENOX) (Medical Risk Categories) 40 mg SUBCUTANEOUS DAILY 06/09/192049 -- 06/09/192099 vte non-pharmacologic prophylaxis - none indicated (de,oh) 06/09/192099 activity - mobilize patient (de,wy) VTE Prophylaxis: VTE prophylaxis appropriate Disposition: Extended Care Facility, has insurance authorization through 06/21 Plan of care discussed with: Provider, RN, Patient SIGNATURE: Puneet Leonardo MD PATIENT NAME: Tori Cantor DATE: June 17, 2019 TIME: 2:58 PM PAGER: [phone] Normal [facility] PROGRESS HNO ID: [id number] Author: Sylwia Torrez Service: Infectious Disease Author Type: Physician Type: Progress Notes Filed: 06/17/2019 8:07 PM Note Text: INFECTIOUS DISEASE PROGRESS NOTE Patient Name: Tori Cantor D ASSESSMENT: 1. Left ankle fracture/ dislocation with large area of necrotic skin, fascia and muscle s/p I and D of the left lower extremity with large area of necrotic skin, fascia and muscle aka necrotizing fascitis on 06/15/2019 2. Left distal tibial osteomyelitis due to MSSA per CT left leg 3. High grade MSSA bacteremia cleared 06/12, JOANNA completed 06/14 no vegetation 4. Type 1 diabetes PLAN: Continue with cefazolin 2 grams TID IV Anticipate 6 weeks of IV cefazolin once the bacteremia clears, till 07/24/2019 COPAT and scripts placed on chart for discharged planning PICC placement INTERVAL HISTORY: C/o constipation and scrotal swelling. Afebrile. RLE pain controlled. Wound vac maintained, dressing changed yesterday. MEDICATIONS: reviewed. Current Facility-Administered Medications Medication Dose Route Frequency - lisinopril 10 mg tab(s) (ZESTRIL, PRINIVIL) 10 mg ORAL DAILY - pantoprazole DR 40 mg tab(s) (PROTONIX) 40 mg ORAL DAILY - enoxaparin 40 mg injection (LOVENOX) 40 mg SUBCUTANEOUS DAILY - NaCl 0.9% 3-5 mL 3-5 mL INTRAVENOUS q 12 H - ondansetron 4 mg tab(s) (ZOFRAN) 4 mg ORAL q 6 H PRN Or - ondansetron (PF) 4 mg injection (ZOFRAN) 4 mg INTRAVENOUS q 6 H PRN - bisacodyl 10 mg suppository (DULCOLAX) 10 mg RECTAL DAILY PRN - dextrose 40 % 15 g 15 g ORAL PRN Or - glucagon 1 mg injection (GLUCAGEN) 1 mg INTRAMUSCULAR PRN Or - dextrose 50 % 12.5 g injection 12.5 g INTRAVENOUS PRN - insulin lispro pen (rapid acting) (HumaLOG KWIKPEN) SUBCUTANEOUS w MEALS - DULoxetine 20 mg cap(s) (CYMBALTA) 20 mg ORAL BID - ceFAZolin iv piggyback 2 g in D5W (iso-osmotic) 100 mL (ANCEF) 2 g INTRAVENOUS q 8 HR - polyethylene glycol 3350 17 g packet (MIRALAX, GLYCOLAX) 17 g ORAL DAILY - senna-docusate 8.6-50 mg 2 tablet (SENNA-S) 2 tablet ORAL BID - pregabalin 100 mg cap(s) (LYRICA) 100 mg ORAL TID - NaCl 0.9% iv infusion 100 mL/hr INTRAVENOUS CONTINUOUS - HYDROmorphone HCl 0.5 mg injection (DILAUDID) 0.5 mg INTRAVENOUS q 3 H PRN - oxyCODONE IR 15 mg tab(s) (ROXICODONE) 15 mg ORAL q 3 H PRN - lactulose 20 g CUP (DUPHALAC, CONSTULOSE) 20 g ORAL TID - mineral oil 133 mL enema (FLEET MINERAL OIL ENEMA) 133 mL RECTAL ONCE - insulin lispro 14 Units pen (rapid acting) (HumaLOG KWIKPEN) 14 Units SUBCUTANEOUS w MEALS - insulin NPH human 24 Units injection pen (intermediate acting) (NovoLIN N, HumuLIN N) 24 Units SUBCUTANEOUS BID 8A/BEDTIME - lidocaine 10 mg/mL (1 %) 10-20 mg injection (XYLOCAINE) 1-2 mL INTRADERMAL ONCE - NaCl 0.9% 10 mL 10 mL INTRAVENOUS q 12 H - NaCl 0.9% 20 mL 20 mL INTRAVENOUS PRN PHYSICAL EXAM: Vital signs: BP 153/86 Pulse 98 Temp 36.7 ?C (98.1 ?F) (Oral) Resp 18 Ht 175.3 cm (5' 9) Wt 91 kg (200 lb 9.9 oz) SpO2 99% BMI 29.63 kg/m? Temp (24hrs), Av.5 ?C (97.7 ?F), Min:36.4 ?C (97.5 ?F), Max:36.7 ?C (98.1 ?F) General: alert, oriented, NAD Lungs: bilaterally clear to auscultation on room air Heart: regular rate and rhythm Abdomen: soft, non tender, non distended, BS+ : + scrotal edema. No chen. No CVAT Extremities: generalize edema bilateral, no swollen joints. LE postop dressing with vac and fixator in place Skin: no rash IV sites - wnl Lab data: reviewed Recent Labs 06/17/19 0331 06/16/19 0150 06/15/19 0208 WBC 13.76* 15.49* 22.32* HB 9.7* 8.6* 9.0* PLT 641* 454* 429* NA 134* 136 133* K 4.5 4.0 4.1 CO2 30 27 26 BUN 10 12 18 CREAT 0.58* 0.58* 0.68 AST 14* 11* 8* ALT 12 15 13 TBILI 0.5 0.4 0.5 ALKPHOS 161* 159* 203* Microbiology data: reviewed Imaging data: reviewed [facility]THA [facility] Pager: [phone] June 17, 2019 2:13 PM Thank you for the consult. We will continue to follow the patient with you. Please call for any questions or concerns. Have seen and evaluated. Agree with above unless otherwise noted Sylwia Torrez MD [facility] PROGRESS HNO ID: [id number] Author: Andreina AaronRn) MATT Leyva Service: Wound/Ostomy Author Type: Registered Nurse Type: Progress Notes Filed: 06/17/2019 10:56 AM Note Text: WOUND CARE NURSE PROGRESS NOTE SERVICE DATE: 06/17/2019 SERVICE TIME: 929 REASON FOR VISIT: Wound TIME SPENT (minutes): 30 Documentation from Wound Expert can be found in scanned documents. Patient seen by Kelly Tripp GRIDCAP MACHINE OPERATOR and wilman RN. Wound vac dressing changed to left lower leg wound using 3 pieces of adaptic and 2 pieces of black foam. Maintain at 125 mm Hg. Continue turn schedule and offload heels with pillows. When discharged to SNF, bedside RN to remove wound vac dressing and foam and apply normal saline wet to dry dressing. Wound care to follow until discharge, plan to change wound vac dressing on Thursday06/20/19 if patient has not been discharged. A photo was taken of the patient's wound(s)/stoma. Photos can be found under the Get Images tab on [facility]. Photos are uploaded by the wound/ostomy acute care clinical nurse specialist and may not be immediately available for viewing. Contact the wound and ostomy care department with questions. SIGNATURE: Andreina Leyva RN, CWON PATIENT NAME: Tori Cantor DATE: June 17, 2019 TIME: 10:53 AM CONTACT#: [id number] [facility] PROGRESS HNO ID: [id number] Author: Remy Peraza Service: Pain Management Author Type: Physician Type: Progress Notes Filed: 06/17/2019 8:14 AM Note Text: Name: TORI CANTOR Age: [age] year old PAIN MANAGEMENT: s/p IANDD left tibia wounds; external fixation LLE, left trimalleolar ankle fracture/dislocation 05/27; Right foot Charcot deformity, DM neuropathy, IVDA 24H Pain Regimen: Cymbalta 20mg po bid Dilaudid 0.5mg IV x 5 Oxycodone 15 mg ?0 Lyrica 100 mg x 1 Interval HPI; afebrile VSS no new complaints status post debridement of left leg and ankle wound, application of wound VAC 06/15. Large area of necrotic skin, fascia and muscle noted, significant blood loss, proximally 500 mL. Still with significant leukocytosis, but improving, H/H reasonably stable. 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 Patient had been noncompliant with nonweightbearing restrictions. He also was seen in the ED 06/08 after removing his own splint; patient left AMA. Patient is a IV vancomycin. He underwent irrigation and debridement on 06/10 the wound VAC and external fixator placement. Blood cultures positive for MSSA bacteremia. JOANNA negative for infective endocarditis. CT left tibia and fibula showing concern for osteomyelitis, possible calf abscess and gas forming infection. Ongoing leukocytosis. Patient on Ancef Prior to admission patient was taking Lyrica 100 mg by mouth 3 times a day. He smokes 1 pack per day. He denies alcohol. He does use marijuana infrequently. He states he had done street drugs for 30 years and then he last used a while ago. He has a history of IV cocaine and methamphetamine. He also admits to history of frequent IV fentanyl use. 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 06/06/2019 2 06/06/2019 Pregabalin 100 MG Capsule 30.00 10 [facility] [id number] [id number] 06/01/2019 Pregabalin 150 MG Capsule 30.00 15 Pe Ailyn [id number] Pha ([id number]) 4 2.01 [facility] 05/31/2019 2 05/31/2019 Oxycodone-Acetaminophen 5-325 6.00 1 Da Mil [id number] Pha ([id number]) [address] [facility] 01/31/2019 1 12/07/2018 Lyrica 150 MG Capsule 90.00 30 Ch Pet [id number] [facility] (2320) 1 2.88 LME [place] 12/07/2018 1 12/07/2018 Lyrica 150 MG Capsule 90.00 30 Ch Pet [id number] [facility] (2320) 0 2.88 [place] 10/05/2018 1 10/04/2018 Hydrocodone-Acetamin 5-325 MG 18.00 3 Ju And [id number] [facility] (2320) 0 30.00 [place] 03/03/2018 1 03/03/2018 Lyrica 150 MG Capsule 90.00 30 Ch Pet [id number] [facility] (2320) 0 2.88 [place] 10/28/2017 1 08/25/2017 Lyrica 150 MG Capsule 90.00 30 Ch Pet [id number] [facility] (2320) 1 2.88 [place]ME [place] 09/11/2017 1 08/25/2017 Lyrica 150 MG Capsule 90.00 30 Ch Pet [id number] [facility] (2320) 0 2.88 [place]ME [place] 07/04/2017 1 01/14/2017 Lyrica 150 MG Capsule 81.00 27 Ch Pet [id number] [facility] (2320) 2 2.88 LME Comm Ins [place] Current Facility-Administered Medications Medication Dose Route Frequency Provider Last Rate Last Dose - HYDROmorphone HCl 0.5 mg injection (DILAUDID) 0.5 mg INTRAVENOUS q 3 H PRN Remy Palmer Karmen 0.5 mg at 06/17/19 0037 - oxyCODONE IR 15 mg tab(s) (ROXICODONE) 15 mg ORAL q 3 H PRN Remy Peraza - lactulose 20 g CUP (DUPHALAC, CONSTULOSE) 20 g ORAL TID Remy Palmer Karmen 20 g at 06/16/19 1218 - mineral oil 133 mL enema (FLEET MINERAL OIL ENEMA) 133 mL RECTAL DAILY PRN Puneet Leonardo - NaCl 0.9% iv infusion 100 mL/hr INTRAVENOUS CONTINUOUS Bryson (Res) Daljit 100 mL/hr at 06/16/19 0150 100 mL/hr at 06/16/19 0150 - insulin NPH human 26 Units injection pen (intermediate acting) (NovoLIN N, HumuLIN N) 26 Units SUBCUTANEOUS BID 8A/BEDTIME Bryson (Res) Daljit 26 Units at 06/16/19 0857 - insulin lispro 16 Units pen (rapid acting) (HumaLOG KWIKPEN) 16 Units SUBCUTANEOUS w MEALS Bryson (Res) Daljit 14 Units at 06/16/19 1715 - polyethylene glycol 3350 17 g packet (MIRALAX, GLYCOLAX) 17 g ORAL DAILY Evangelister (Res) Dajlit 17 g at 06/16/19 0857 - senna-docusate 8.6-50 mg 2 tablet (SENNA-S) 2 tablet ORAL BID Evangelister (Res) Daljit 2 tablet at 06/16/19 2249 - pregabalin 100 mg cap(s) (LYRICA) 100 mg ORAL TID Evangelister (Res) Pinkowski 100 mg at 06/16/192248 - ceFAZolin iv piggyback 2 g in D5W (iso-osmotic) 100 mL (ANCEF) 2 g INTRAVENOUS q 8 HR Bryson (Res) Pinkowski Stopped at 06/17/19 0129 - insulin lispro pen (rapid acting) (HumaLOG KWIKPEN) SUBCUTANEOUS w MEALS Bryson (Res) Pinkowski 3 Units at 06/16/19 0901 - DULoxetine 20 mg cap(s) (CYMBALTA) 20 mg ORAL BID Evangelister (Res) Pinkowski 20 mg at 06/16/192248 - lisinopril 10 mg tab(s) (ZESTRIL, PRINIVIL) 10 mg ORAL DAILY Evangelister (Res) Pinkowski 10 mg at 06/16/19 0900 - pantoprazole DR 40 mg tab(s) (PROTONIX) 40 mg ORAL DAILY Evangelister (Res) Pinkowski 40 mg at 06/16/19 0900 - enoxaparin 40 mg injection (LOVENOX) 40 mg SUBCUTANEOUS DAILY Evangelister (Res) Pinkowski 40 mg at 06/16/192039 - NaCl 0.9% 3-5 mL 3-5 mL INTRAVENOUS q 12 H Evangelister (Res) Pinkowski 5 mL at 06/16/192042 - ondansetron 4 mg tab(s) (ZOFRAN) 4 mg ORAL q 6 H PRN Evangelister (Res) Pinkowski Or - ondansetron (PF) 4 mg injection (ZOFRAN) 4 mg INTRAVENOUS q 6 H PRN Evangelister (Res) Pinkowski 4 mg at 06/16/192039 - bisacodyl 10 mg suppository (DULCOLAX) 10 mg RECTAL DAILY PRN Evangelister (Res) Pinkowski 10 mg at 06/17/1936 - dextrose 40 % 15 g 15 g ORAL PRN Evangelister (Res) Pinkowski 15 g at 06/16/192113 Or - glucagon 1 mg injection (GLUCAGEN) 1 mg INTRAMUSCULAR PRN Arturoopher (Res) Pinkowski Or - dextrose 50 % 12.5 g injection 12.5 g INTRAVENOUS PRN Arturoopher (Res) Gennyowski ibuprofen (MOTRIN) 400 mg tablet, Take 400 mg by mouth every 6 hours as needed., Disp: , Rfl: insulin glargine (LANTUS SOLOSTAR U-100 INSULIN) 100 unit/mL (3 mL) inpn, Inject 24 Units subcutaneously twice daily. While at [facility] , Disp: , Rfl: levoFLOXacin (LEVAQUIN) 750 mg tablet, Take 750 mg by mouth once daily. End date 06-23-19, Disp: , Rfl: enoxaparin (LOVENOX) 40 mg/0.4 mL syrg, Inject 40 mg subcutaneously every 24 hours., Disp: , Rfl: oxyCODONE-acetaminophen (PERCOCET) 5-325 mg tablet, Take 1 tablet by mouth every 6 hours as needed., Disp: , Rfl: insulin detemir U-100 (LEVEMIR FLEXTOUCH U-100 INSULN) 100 unit/mL (3 mL) inpn injection, Inject 30 Units subcutaneously twice daily. While at home, Disp: , Rfl: doxycycline monohydrate (AVIDOXY) 100 mg tablet, Take 1 tablet by mouth twice daily for 14 days. (Patient taking differently: Take 100 mg by mouth twice daily. End date 06-23-19 ), Disp: 28 tablet, Rfl: 0 acetaminophen (TYLENOL) 325 mg tablet, Take 2 tablets by mouth every 6 hours as needed., Disp: , Rfl: insulin lispro (HUMALOG KWIKPEN INSULIN) 100 unit/mL inpn, Inject 14 Units subcutaneously three times daily before meals. (Patient taking differently: Inject subcutaneously three times daily before meals. Sliding scale 100-150: 2 units 151-200: 4 units 201-250: 6 units 251-300: 8 units 301-350: 10 units 351-400: 12 units 401-450: 14 units <70 or >400 call MD ), Disp: , Rfl: lisinopril (ZESTRIL, PRINIVIL) 10 mg tablet, Take 1 tablet by mouth once daily for 15 days., Disp: 15 tablet, Rfl: 0, 05/26/[address] (PROTONIX) 40 mg tablet, Take 40 mg by mouth once daily. , Disp: , Rfl: , 05/26/2019 Lancets lancets, Use as instructed, Disp: 100 Each, Rfl: 11, Taking Insulin Dudley, Disposable, (BD ULTRAFINE III MINI PEN) 31 gauge x 3/16 ndle, USE WITH INSULIN PENS 4TIMES DAILY, Disp: 400 Each, Rfl: 3, Taking blood sugar diagnostic (ONETOUCH ULTRA TEST) test strip, CHECK BLOOD SUGARS 6 TIMES DAILY, Disp: 200 Strip, Rfl: 3, Taking DULoxetine (CYMBALTA) 30 mg capsule, Take 1 capsule by mouth once daily. (Patient taking differently: Take 120 mg by mouth once daily. ), Disp: , Rfl: 0, 05/25/2019 pregabalin (LYRICA) 150 mg capsule, Take 100 mg by mouth three times daily. , Disp: , Rfl: , Taking cyclobenzaprine (FLEXERIL) 5 mg tablet, Take 5 mg by mouth every 8 hours as needed., Disp: , Rfl: Social History Tobacco Use - Smoking status: Current Every Day Smoker Packs/day: 1.00 Types: Cigarettes - Smokeless tobacco: Never Used Substance Use Topics - Alcohol use: Yes Comment: socially - Drug use: Yes Types: Cocaine, Amphetamines Comment: hist of cocaine and marajuana use, fentanyl FAMILY HISTORY Problem Relation Age of Onset - Hypertension Mother - Diabetes Mother - Stroke Mother - Heart Mother CHF - Cataract Mother - Hypertension Father - COPD Father - Emphysema Father PAST SURGICAL HISTORY Procedure Laterality Date - NONE ROS: All of the following reviewed and negative except as noted below: GENERAL: no fever, chills, sweats, weight loss, fatigue, generalized weakness HEENT: no headache, vision changes, eye discomfort, hearing change, ear discomfort, sinus pain, nasal discharge or congestion, oral lesions, soreness, dental problem NECK: no adenopathy, discomfort, change in ROM CHEST: no shortness of breath, dyspnea on exertion, wheezing, cough, sputum production or chest pain HEART: no chest pain, palpitations, syncope ABDOMEN: no nausea, vomiting, constipation, diarrhea, abdominal pain : no dysuria, urgency, frequency, history of stones, incontinence NEURO: no confusion or alteration in consciousness, slurred speech, seizure, focal weakness EXTREMITIES: See history of present illness HEME: no new adenopathy, bruises, petechiae PSYCH: no depression, anxiety, agitation PAIN PSYCHIATRIC EXAM: GENERAL: alert, oriented to person, place, time JUDGMENT AND INSIGHT: intact APPEARANCE: neatly groomed DEMEANOR: coooperative, not hostile, mistrustful, preoccupied, or demanding ACTIVITY: normal, not hyperactive or hypoactive, no tremors, tics EYE CONTACT: normal SPEECH: normal, rate, volume, articulation, coherence, spontaneity MOOD: normal, without overt sadness, grief, anxiety, appropriate to situation IDEATION: normal and without suicidal or homicidal ideation MEMORY: intact PHYSICAL EXAMINATION: GENERAL: well nourished and developed; no acute distress; alert and oriented x 3; intact judgement and insight HEENT: no evidence of trauma; cranial nerves intact; eyes clear EOMI; no hearing deficits apparent; nasal passages unremarkable; throat and mucous membranes clear NECK: supple without lymphadenopathy; no JVD; no thyromegaly CHEST: clear bilaterally to auscultation; normal chest movement; no rales or rhonchi HEART: regular rate and rhythm, normal S1 and S2, no murmurs, clicks, rubs, or gallops ABDOMEN: soft; nondistended; bowel sounds present; no hepatomegaly; no splenomegaly; no tenderness EXTREMITIES: no evidence of clubbing; no cyanosis; left leg with wound VAC; intact external fixator 1+ edema NEURO: cranial nerves intact; no focal deficits; no confusion; no tremor; sensorium normal SKIN: no decubitus lesions HEME: no bruising; no adenopathy PSYCH: no evidence of depression; no anxiety; no agitation; no apparent hallucinations BP 141/94 Pulse 100 Temp 36.9 ?C (98.4 ?F) (Oral) Resp 16 Ht 175.3 cm (5' 9) Wt 91 kg (200 lb 9.9 oz) SpO2 99% BMI 29.63 kg/m? BMI 29.63 kg/(m2) Date 06/14/19699 - 06/15/1960 Shift 6531-7909 7423-4143 6929-3607 24 Hour Total INTAKE Shift Total OUTPUT Urine 1300 1300 Shift Total 1300 1300 Weight (kg) 91 91 91 91 Date 06/13/19699 - 06/14/1965806/14/19699 - 06/15/19 0659 Shift 4521-2065 9117-4100 1978-3653 24 Hour Total 5477-1429 0035-9522 3071-4552 24 Hour Total INTAKE IV 700 700 Volume (mL) (NaCl 0.9% iv infusion) 600 600 Volume (mL) (ceFAZolin iv piggyback 2 g in D5W (iso-osmotic) 100 mL (ANCEF)) 100 100 Shift Total 700 700 OUTPUT Urine 974 339 4090 1300 1300 Void (ml) 635 755 0611 1300 1300 Drains 0 0 Negative Pressure: Output (mL) (Negative Pressure Wound Therapy Ankle -Left) 0 0 # of BMs Number of BMs 0 x 0 x Shift Total 400 750 0 1150 1300 1300 Weight (kg) 91 91 91 91 91 91 91 91 ABNORMAL/NEW FINDINGS: NONE RADIOLOGY/DIAGNOSTICS: LABORATORY: CBC: No results for input(s): WBC, RBC, HB, HCT, PLT, MCV, MCH, MPV, RDW in the last 24 hours. CMP: No results for input(s): NA, K, CHLOR, CO2, BUN, CREAT, GLUC, TPROT, CA, MG, ALBUMIN, TBILI, ALKPHOS, ALT, AST, ANION in the last 24 hours. Heme: No results for input(s): RETICP, ABSRETIC, LD, VIKRAM, FE, TIBC, TRANSFERSAT in the last 24 hours. 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 ([facility]) Hypertension Gerd (Gastroesophageal Reflux Disease) Microalbuminuria History of Diabetic Gastroparesis Diabetic Polyneuropathy Associated With Type 1 Diabetes Mellitus ([facility]) Depression With Anxiety Charcot's Joint of Right Foot Hyperlipidemia Hep C W/O Coma, Chronic ([facility]) History of Drug Abuse in Remission ([facility]) Ivdu (Intravenous Drug User) Tobacco Abuse Left Ankle Joint Deformity Hyperglycemia Nicotine use disorder, F17.2 Closed Fracture of Left Ankle Sepsis ([facility]) PLAN: Status post debridement of left leg and ankle wounds, external fixator placement and wound VAC 06/10; repeat debridement, wound VAC placement 06/15 Left trimalleolar ankle fracture/dislocation on 05/27; noncompliant with nonweightbearing and wound care On Ancef for MSSA bacteremia; concern for osteomyelitis of tibia and fibula. JOANNA negative for endocarditis. CT also demonstrated concern for abscess along posterior tibia. History of polysubstance abuse including IV drug abuse; patient denies recent abuse Dilaudid 0.5 mg IV every 3 hours when necessary breakthrough pain Increase Oxycodone 15 milligram every 3 hours when necessary severe pain Has not been using. Cymbalta 20 mg twice a day Change Lyrica 100 mg by mouth 3 times a day No BM times 2?3 weeks. Patient has refused laxatives. Will attempt lactulose as discussed. Used x 2 also supp x 1 Senna S2 by mouth twice a day, MiraLAX daily, Dulcolax suppository as needed Oxycodone prescription placed in chart. Plans to return to senior living facility at discharge noted Remy Peraza M.D. Normal [facility] PROGRESS HNO ID: [id number] Author: Matthias Ndiaye Service: Nephrology Author Type: Physician Type: Progress Notes Filed: 06/17/2019 10:29 AM Note Text: [facility] Nephrology Progress Note Subjective/ 44 year old year old male who we are seeing in consultation for hyponatremia. ? Interval Hx: ?Seen and examined Increased PO intake Pain is better controlled gettinig wound dressing changed when seen today CINDY MACIEL (-) unless noted above Objective/ 06/16/19 0900 06/16/19 1301 06/16/19 2023 06/17/19 0654 BP: 156/84 127/65 141/94 140/76 Pulse: 91 94 100 92 Resp: 16 16 16 16 Temp: 36.5 ?C (97.7 ?F) 36.4 ?C (97.5 ?F) 36.9 ?C (98.4 ?F) 36.6 ?C (97.9 ?F) TempSrc: Axillary Oral Oral Oral SpO2: 94% 97% 99% 95% Weight: Height: 24HR INTAKE/OUTPUT: Intake/Output Summary (Last 24 hours) at 06/17/2019 0759 Last data filed at 06/17/2019 0653 Gross per 24 hour Intake 1660 ml Output 2425 ml Net -765 ml Constitutional: Alert, awake, no apparent distress Head: AT NC Neck: Supple, No JVD, no thyromegaly EENT: eyes nonicteric, mm dry Cardiovascular: RRR, good S1, S2. No murmurs, clicks, or rubs Respiratory: CTA without any wheezing, rhonchi, or rales, no accessory muscle use Abdomen: soft, NT, ND Extremity: +trace BLE peripheral edema, no tremors, wound vac to LLE Neurological: moves all 4 extremities. No focal neuro deficit Psychological: Cooperative throughout assessment. Current Facility-Administered Medications Medication Dose Route Frequency - mineral oil 133 mL enema (FLEET MINERAL OIL ENEMA) 133 mL RECTAL ONCE - HYDROmorphone HCl 0.5 mg injection (DILAUDID) 0.5 mg INTRAVENOUS q 3 H PRN - oxyCODONE IR 15 mg tab(s) (ROXICODONE) 15 mg ORAL q 3 H PRN - lactulose 20 g CUP (DUPHALAC, CONSTULOSE) 20 g ORAL TID - NaCl 0.9% iv infusion 100 mL/hr INTRAVENOUS CONTINUOUS - insulin NPH human 26 Units injection pen (intermediate acting) (NovoLIN N, HumuLIN N) 26 Units SUBCUTANEOUS BID 8A/BEDTIME - insulin lispro 16 Units pen (rapid acting) (HumaLOG KWIKPEN) 16 Units SUBCUTANEOUS w MEALS - polyethylene glycol 3350 17 g packet (MIRALAX, GLYCOLAX) 17 g ORAL DAILY - senna-docusate 8.6-50 mg 2 tablet (SENNA-S) 2 tablet ORAL BID - pregabalin 100 mg cap(s) (LYRICA) 100 mg ORAL TID - ceFAZolin iv piggyback 2 g in D5W (iso-osmotic) 100 mL (ANCEF) 2 g INTRAVENOUS q 8 HR - insulin lispro pen (rapid acting) (HumaLOG KWIKPEN) SUBCUTANEOUS w MEALS - DULoxetine 20 mg cap(s) (CYMBALTA) 20 mg ORAL BID - lisinopril 10 mg tab(s) (ZESTRIL, PRINIVIL) 10 mg ORAL DAILY - pantoprazole DR 40 mg tab(s) (PROTONIX) 40 mg ORAL DAILY - enoxaparin 40 mg injection (LOVENOX) 40 mg SUBCUTANEOUS DAILY - NaCl 0.9% 3-5 mL 3-5 mL INTRAVENOUS q 12 H - ondansetron 4 mg tab(s) (ZOFRAN) 4 mg ORAL q 6 H PRN Or - ondansetron (PF) 4 mg injection (ZOFRAN) 4 mg INTRAVENOUS q 6 H PRN - bisacodyl 10 mg suppository (DULCOLAX) 10 mg RECTAL DAILY PRN - dextrose 40 % 15 g 15 g ORAL PRN Or - glucagon 1 mg injection (GLUCAGEN) 1 mg INTRAMUSCULAR PRN Or - dextrose 50 % 12.5 g injection 12.5 g INTRAVENOUS PRN Data/ CBC, Coags, BMP, Mg, Phos Recent Labs 06/17/19 0331 06/16/19 0150 06/15/19 0208 WBC 13.76* 15.49* 22.32* HB 9.7* 8.6* 9.0* HCT 30.5* 26.4* 27.3* PLT 641* 454* 429* NA 134* 136 133* K 4.5 4.0 4.1 CHLOR 98 104 103 CO2 30 27 26 BUN 10 12 18 CREAT 0.58* 0.58* 0.68 GLUC 181* 187* 145* CA 9.2 8.2* 8.4* Assessment/ 1. Hyponatremia (increased free H2O intake, poor osmole intake, pain with ADH increase) 2. 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 Sepsis 2/2 LLE cellulitis (S. Aureus bacteremia) 4. 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 Intravenous drug abuse 6. Left leg splint s/p ( left ankle # ) 7. Hypoalbuminemia Plan/ Na at 134, stable Same Rx S/p debridement of left leg and ankle wound Continue oral h2o restriction (1200 ml/day) Continue to encourage protein intake ( Boost glucose control BID) Continue to encourage good PO intake Pain control will suppress the ADH release No other changes Will continue to follow Gaurav Ndiaye MD [facility] PROGRESS HNO ID: [id number] Author: Gareth Uriarte Service: Orthopaedic Surgery Author Type: Physician Type: Progress Notes Filed: 06/17/2019 9:08 AM Note Text: ORTHOPAEDIC SURGERY POSTOP DAILY PROGRESS NOTE Patient Name: Tori Cantor Date of Evaluation: 06/17/2019 Admission Date: 06/09/2019 Time of Evaluation: 6:19 AM ASSESSMENT: 44 year old male POD # 2 IANDD of left leg and ankle wound, application of wound vac, POD # 7 IANDD left leg and ankle wound, application of wound vac, application of ex fix PLAN: Pain Medications:?Per pain management? DVT prophylaxis:?per primary, ok for dvt chemoppx from orthopaedic standpoint Perioperative Antibiotics:?per primary, Ancef 2g Q8H Diet Plan:?Diet carbohydrate controlled Mobilization, Range of Motion, and Weight bearing:?NWB LLE, Ex fix in place Dressing Management:?Pin site care: xeroform and kerlix daily changes, wound vac changes per wound center ? Est. Length Of Stay / Discharge Destination:?Per primary Any Other Issues??Sepsis, hyponatremia, Diabetes, Hepatitis C, IDDM Consults:Endocrinology, Pain management, ID, nephrology, CV, PT, OT, care management INTERVAL HPI: Patient monitored, no new events overnight. Patient states that they are comfortable. Well Controlled pain. Denies nausea/vomitting. OBJECTIVE: BP 141/94 Pulse 100 Temp 36.9 ?C (98.4 ?F) (Oral) Resp 16 Ht 175.3 cm (5' 9) Wt 91 kg (200 lb 9.9 oz) SpO2 99% BMI 29.63 kg/m? Intake/Output Summary (Last 24 hours) 06/16 2300 - 06/17 0659 In: 100 [IV:100] Out: 300 [Urine:300] Exam: General: NAD, AAOx3 Extremities: Left Lower Extremity: Wound vac in place, sero sang drainage Ex fix in place SILT S/S/SP/DP/T Motor intact PF, unable to dorsiflex toes DP pulse palpable, foot warm with pulses Compartments soft, compressible. Tolerates passive stretch of digits. Labs: BMP: Sodium 134 06/17/2019 Potassium 4.5 06/17/2019 Chloride 98 06/17/2019 CO2 30 06/17/2019 BUN 10 06/17/2019 Creatinine 0.58 06/17/2019 Glucose 181 06/17/2019 CBC: WBC 13.76 06/17/2019 Hemoglobin 9.7 06/17/2019 Hematocrit 30.5 06/17/2019 Platelet Count 641 06/17/2019 COAGS: APTT 27.6 06/09/2019 PT INR 1.09 06/10/2019 SED RATE/CRP: Sed Rate, Westergren 84 06/08/2019 CRP 23.80 06/08/2019 Imaging: no new images Bryson Bocanegra MD Resident, Orthopaedic Surgery Pager #: [phone] 06/17/2019 6:19 AM Please page [phone] from 5p-6a and on weekends for any issues. Agree with resident assessment and plan. WBC improving Normal [facility] PT EDon 06-17-2019 PT ED HNO ID: [id number] Author: Marilyn AaronRn) MATT [place] Service: PICC Team Author Type: Registered Nurse Type: Patient Education Filed: 06/17/2019 4:58 PM Note Text: PATIENT EDUCATION VASCULAR ACCESS TEAM TOPIC: Peripherally Inserted Central Catheter READINESS TO LEARN COGNITIVE ABILITY: Alert and oriented MOTIVATION TO LEARN: Interested FAMILY SUPPORT: Unable to assess - Family not present INSTRUCTION PROVIDED TO: Patient PATIENT LEARNS BEST BY: Individual Instruction FACTORS AFFECTING LEARNING:None PHYSICAL LIMITATIONS AFFECTING LEARNING: Limited Mobility LEARNING RESPONSE METHOD OF INSTRUCTION: Individual instruction PATIENT / FAMILY RESPONSE: Verbalizes understanding of pre-procedure instructions Verbalizes understanding of post-procedure instructions FOLLOW-UP PLAN: Follow-up with Primary Care SUPPLEMENTAL MATERIAL: PICC Line brochure Normal [facility] T3, Totalon 06-17-2019 T3, Total 0.4 ng/mL Low 0.6-1.8 [facility] Comment on above: Performed By: #### H A1C #### [place] [address] THERAPY NTon 06-17-2019 THERAPY NT HNO ID: [id number] Author: Noelle Parra Service: Physical Therapy Author Type: Physical Therapist Type: Therapy (PT/OT/Speech/Resp) Filed: 06/17/2019 9:28 AM Note Text: PHYSICAL THERAPY MISSED VISIT SERVICE DATE: 06/17/2019 SERVICE TIME: 0841 to 0844 ROOM: [place] [address] Attempted Treatment. Patient not seen due to Declined. Patient reports in too much pain. Will continue to follow and complete treatment as able. SIGNATURE: Noelle Parra PT PATIENT NAME: Tori Cantor DATE: June 17, 2019 TIME: 9:27 AM Normal [facility] TSH, 3rd generationon 2018 TSH, 3rd generation 8.020 uIU/mL High 0.358-3.740 [facility] Comment on above: Performed By: #### G LMET #### [place] [address] CONSULT PROGon 06-16-2019 CONSULT PROG HNO ID: [id number] Author: Salina Geronimo Service: Endocrinology Author Type: Physician Type: Consult Progress Note Filed: 06/16/2019 8:20 AM Note Text: ENDOCRINOLOGY CONSULT PROGRESS NOTE SERVICE DATE: 06/16/2019 SERVICE TIME: 8:15 AM Subjective INTERVAL HPI: Following for DM type 1. Adm with left ankle fracture after a fall, has left leg infection, cellulitis. Notes and orders reviewed. Patient refused insulin 06/14 am; was NPO for JOANNA; agreed to take NPH 26 units and humalog 10 units x1; readjusted doses as he is so afraid of hypoglycemia and will refuse to take his insulin! Went to OR again on 06/15. Diet: DIET CARBOHYDRATE CONTROLLED p.o intake erratic, states following diet. Activity:Bedrest Review of Systems: PAIN ASSESSMENT: c/o left ankle/leg pain, severe at times GENERAL: has fatigue, malaise, no fever/chills RESPIRATORY: Negative for cough, hemoptysis, wheezing, COPD, dyspnea or shortness of breath CARDIOVASCULAR: Negative for chest pain, leg swelling, hypertension, CHF or palpitations GI: No nausea, vomiting, or diarrhea ENDOCRINE: Negative for cold or heat intolerance, polyuria or polydipsia. The remainder of the review of systems is negative. Current Facility-Administered Medications Medication Dose Route Frequency - lisinopril 10 mg tab(s) (ZESTRIL, PRINIVIL) 10 mg ORAL DAILY - pantoprazole DR 40 mg tab(s) (PROTONIX) 40 mg ORAL DAILY - enoxaparin 40 mg injection (LOVENOX) 40 mg SUBCUTANEOUS DAILY - NaCl 0.9% 3-5 mL 3-5 mL INTRAVENOUS q 12 H - ondansetron 4 mg tab(s) (ZOFRAN) 4 mg ORAL q 6 H PRN Or - ondansetron (PF) 4 mg injection (ZOFRAN) 4 mg INTRAVENOUS q 6 H PRN - bisacodyl 10 mg suppository (DULCOLAX) 10 mg RECTAL DAILY PRN - dextrose 40 % 15 g 15 g ORAL PRN Or - glucagon 1 mg injection (GLUCAGEN) 1 mg INTRAMUSCULAR PRN Or - dextrose 50 % 12.5 g injection 12.5 g INTRAVENOUS PRN - insulin lispro pen (rapid acting) (HumaLOG KWIKPEN) SUBCUTANEOUS w MEALS - DULoxetine 20 mg cap(s) (CYMBALTA) 20 mg ORAL BID - ceFAZolin iv piggyback 2 g in D5W (iso-osmotic) 100 mL (ANCEF) 2 g INTRAVENOUS q 8 HR - insulin NPH human 26 Units injection pen (intermediate acting) (NovoLIN N, HumuLIN N) 26 Units SUBCUTANEOUS BID 8A/BEDTIME - insulin lispro 16 Units pen (rapid acting) (HumaLOG KWIKPEN) 16 Units SUBCUTANEOUS w MEALS - polyethylene glycol 3350 17 g packet (MIRALAX, GLYCOLAX) 17 g ORAL DAILY - senna-docusate 8.6-50 mg 2 tablet (SENNA-S) 2 tablet ORAL BID - pregabalin 100 mg cap(s) (LYRICA) 100 mg ORAL TID - NaCl 0.9% iv infusion 100 mL/hr INTRAVENOUS CONTINUOUS - HYDROmorphone HCl 0.5 mg injection (DILAUDID) 0.5 mg INTRAVENOUS q 3 H PRN - oxyCODONE IR 10 mg tab(s) (ROXICODONE) 10 mg ORAL q 3 H PRN Objective PHYSICAL EXAM: GENERAL: awake, alert; no distress SKIN: no rash/ bruising OROPHARYNX: moist LUNGS: clear CVS: RRR EXTREMITIES: left foot in a bandage and external fixation frame; right foot charcot's deformity, no ulcers BP 126/70 Pulse 101 Temp (Src) 97.7 (Oral) Resp 18 Ht 5' 9 (1.75m) Wt 200 lb 9.9 oz (91.0kg) SpO2 95% BMI 29.61 kg/(m2). O2 Therapy: Room Air DATA: Diagnostic tests reviewed for today's visit: Most recent labs and imaging results. Last 24 hr BS reviewed. Recent Labs 06/16/19 0551 06/16/19 0323 06/16/19 0150 06/15/19 2118 06/15/19 2053 06/15/19 1600 06/15/19 0208 06/14/19 0107 GLUC -- -- 187* -- -- -- -- 145* -- 235* GLUCOSEMETER 193* 182* -- 93 65* 97 < > -- < > -- < > = values in this interval not displayed. 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 Home Rx is Levemir 25 units bid and Novolog 14 units tid with SSI. Was on 70/30 from 03/09 till 05/18 (while incarcerated) Saw [facility]elo in [place] in September,; due for appt? Started on lantus 25 units bid and Humalog 20 units tid here. BS still very high, increased Lantus to 30 units bid and Humalog to 24 unist tid changed to NPH 30 units bid and humalog 30 units qac tid pluc sorrection.Patient refused insulin 06/14 am; was NPO for JOANNA; then agreed to take NPH 26 units and humalog 10 units x1; readjusted doses as he is so afraid of hypoglycemia and refuses to take insulin; decreased NPH to bid and humalog 16 units qac tid plus correction on 06/14. NPO on 06/15, then ate late/poorly after OR, had a low BS last night, high after snack now. Cont Rx. Cellulitis/abscess left ankle, s/p debridement and external fixation of ankle fracture on 06/10. JOANNA normal. Went to OR again on 06/15 for debridement. Hyponatremia, renal on board, evidence of SIADH, Na 136(133)(130)(128)(124)(1 26) IVDU (intravenous drug user) POA: Yes Assessment AND Plan: hx Closed fracture of left ankle POA: Yes Assessment AND Plan: trimalleolar, 3 weeks ago after a fall SIGNATURE: Salina Geronimo MD PATIENT NAME: Tori Cantor DATE: June 16, 2019 TIME: 8:20 AM PAGER: [phone] Normal [facility] Comprehensive Panelon 2018 ALP [Catalytic activity/Vol] 159 U/L High 45-117 [facility] Comment on above: Performed By: #### G LMET #### [address] [address] Protein [Mass/Vol] 6.1 g/dL Low 6.4-8.2 [facility] Comment on above: Performed By: #### G LMET #### [facility] [address] [place], [place] [address] Bilirubin [Mass/Vol] 0.4 mg/dL Normal 0.2-1.0 [facility] Comment on above: Performed By: #### G LMET #### [facility] [address] [place], [place] [address] Creatinine [Mass/Vol] 0.58 mg/dL Low 0.67-1.17 [facility] Comment on above: Performed By: #### G LMET #### [facility] [address] [place], [place] [address] AST [Catalytic activity/Vol] 11 U/L Low 15-37 [facility] Comment on above: Performed By: #### G LMET #### [facility] [address] [place], [place] [address] ALT [Catalytic activity/Vol] 15 U/L Normal 12-78 [facility] Comment on above: Performed By: #### G LMET #### [facility] [address] [place], [place] [address] Albumin [Mass/Vol] 1.7 g/dL Low 3.4-5.0 [facility] Comment on above: Performed By: #### G LMET #### [facility] [address] [place], [place] [address] Glucose [Mass/Vol] 187 mg/dL High 70-99 [facility] Comment on above: Performed By: #### G LMET #### [facility] [address] [place], [place] [address] Anion gap [Moles/Vol] 9 mmol/L Normal 8-16 [facility] Comment on above: Performed By: #### G LMET #### [facility] [address] [place], [place] [address] Calcium [Mass/Vol] 8.2 mg/dL Low 8.5-10.1 [facility] Comment on above: Performed By: #### G LMET #### [facility] [address] [place], [place] [address] CO2 [Moles/Vol] 27 mmol/L Normal 21-32 [facility] Comment on above: Performed By: #### G LMET #### [facility] [address] [place], [place] [address] Urea nitrogen [Mass/Vol] 12 mg/dL Normal 7-18 [facility] Comment on above: Performed By: #### G LMET #### [facility] [address] [place], [place] [address] Chloride [Moles/Vol] 104 mmol/L Normal 98-107 [facility] Comment on above: Performed By: #### G LMET #### [facility] [address] [place] [address] Potassium [Moles/Vol] 4.0 mmol/L Normal 3.5-5.1 [facility] Comment on above: Performed By: #### G LMET #### [facility] [address] [place] [address] Sodium [Moles/Vol] 136 mmol/L Normal 136-145 [facility] Comment on above: Performed By: #### G LMET #### [facility] [address] [place] [address] Hemogramon 06-16-2019 Erythrocyte distribution width (RBC) [Ratio] 14.3 % Normal 11.6-14.4 [facility] Comment on above: Performed By: #### G LMET #### [place] [address] Hematocrit (Bld) [Volume fraction] 26.4 % Low 40.1-51.0 [facility] Comment on above: Performed By: #### G LMET #### [facility] [address] [place] [address] Hemoglobin (Bld) [Mass/Vol] 8.6 g/dL Low 13.7-17.5 [facility] Comment on above: Performed By: #### G LMET #### [facility] [address] [place] [address] MCH (RBC) [Entitic mass] 29.1 pg Normal 25.7-32.2 [facility] Comment on above: Performed By: #### G LMET #### [facility] [address] [place] [address] MCHC (RBC) [Mass/Vol] 32.6 % Normal 32.3-36.5 [facility] Comment on above: Performed By: #### G LMET #### [facility] [address] [place] [address] MCV (RBC) [Entitic vol] 89.2 fL Normal 83.2-95.6 [facility] Comment on above: Performed By: #### G LMET #### [facility] [facility] [address] [place], [place] [address] Platelet mean volume (Bld) [Entitic vol] 10.1 fL Normal 8.7-12.0 [facility] Comment on above: Performed By: #### G LMET #### [facility] [address] [place], [place] [address] Platelets (Bld) [#/Vol] 454 thou/cmm High 141-365 [facility] Comment on above: Performed By: #### G LMET #### [facility] [address] [place], [place] [address] RBC (Bld) [#/Vol] 2.96 mil/cmm Low 4.63-6.08 [facility] Comment on above: Performed By: #### G LMET #### [facility] [address] [place], [place] [address] RDW SD 45.8 fl Normal 36.1-45.8 [facility] Comment on above: Performed By: #### G LMET #### [facility] [address] [place], [place] [address] WBC (Bld) [#/Vol] 15.49 thou/cmm High 4.23-9.07 [facility] Comment on above: Performed By: #### G LMET #### [facility] [address] [place], [place] [address] NURSING PROGon 06-16-2019 NURSING PROG HNO ID: [id number] Author: Carlos (Rn) MATT Casas Service: ? Author Type: Registered Nurse Type: Nursing Progress Note Filed: 06/16/2019 9:37 PM Note Text: Nursing Progress Note Patient Name: Tori Cantor Patient Location: [id number] 1 At 2100 blood sugar. Patient's blood glucose was 65. Gave 480 ml orange juice, patient drank. Recheck blood sugar at 2114 was 68. Administered po Glucagon as per PRN order. There is an order for 26 units NPH insulin due at 2099. Notified Noelle Galvan RETAINING ROOM CUTTER. Hold this insulin dose. Plan to recheck blood sugar after Glucagon. This note was completed by: Carlos Casas RN [facility] NUTRITIONon 06-16-2019 NUTRITION HNO ID: [id number] Author: Sugey Crenshaw) CARLEY Navarrete Service: Nutrition Therapy Author Type: Registered Dietitian Type: Nutrition Filed: 06/16/2019 12:26 PM Note Text: NUTRITION THERAPY INITIAL ASSESSMENT SERVICE DATE: 06/16/2019 SERVICE TIME: 1015 RECOMMENDED MALNUTRITION DIAGNOSIS: NO MALNUTRITION IDENTIFIED NUTRITION CARE PLAN: Problem, Etiology and Signs/Symptoms: Increased nutrient needs related to wound healing as evidenced by LE wound req'ing surgical intervention. Intervention: 1. Monitor and encourage intake 2. Continue with Boost Glucose Control BID 3. Diabetic Ed prior to DC Monitor and Evaluation: Goal: Meet >75% of estimated needs Discharge Nutrition Recommendations: To be determined ------ Nutrition consult: Assessment Per HPI: Pt admitted with leg pain and suspected sepsis. Hx significant for DM and DKA, IVDU and pancreatitis. 06/10 s/p debridement of L leg and ankle wounds. 06/14 s/p JOANNA. 06/15 s/p repeat debridement. Needs IV antibiotics short term. Orders Placed This Encounter DIET CARBOHYDRATE CONTROLLED Standing Status: Standing Number of Occurrences: 1 Order Specific Question: Carbohydrate Control Answer: 3-5 CARBS/MEAL Supplement 1 Frequency: 5. DINNER Supplement 2 Frequency: 3. LUNCH Supplement 1: BOOST GLUCOSE CONTROL CHOCOLATE Supplement 2: BOOST GLUCOSE CONTROL CHOCOLATE There are no questions and answers to display. There are no questions and answers to display. Lines and Drains: Peripheral 06/09/19 1545 Left Wrist 20 Gauge (Active) Nutritional Intake Prior to Admission: Pt only admits to eating 1 meal daily at home and does not eat during the day? States his diabetes has been brittle since the age of 34 and anything under 200 is good for him. Has top dentures only and limited with most food consistencies. Denies need for modified diet. GI symptoms: anorexia Nutrition Abdominal Exam:, abdomen is soft and nondistended and bowel sounds are normal ANTHROPOMETRICS Height: 175.3 cm (5' 9) Admission Weight: 88.5 kg (195 lb) Current Weight: 91 kg (200 lb 9.9 oz) Body mass index is 29.63 kg/m?. overweight Weight has not changed significantly Last Wt 06/09/19 : 91 kg (200 lb 9.9 oz) 06/08/19 : 88 kg (194 lb) 06/02/19 : 79.4 kg (175 lb) 05/27/19 : 84.2 kg (185 lb 10 oz) 11/24/18 : 88.5 kg (195 lb) 09/29/18 : 88.5 kg (195 lb) 04/02/18 : 84.8 kg (187 lb) 02/11/17 : 92.4 kg (203 lb 12.8 oz) 11/11/16 : 88.9 kg (196 lb) 11/11/16 : 88.9 kg (196 lb) 07/30/16 : 90.6 kg (199 lb 12.8 oz) 05/21/16 : 77.8 kg (171 lb 9.6 oz) 01/25/16 : 79.7 kg (175 lb 12.8 oz) 12/05/09 : 86.2 kg (190 lb) 11/23/09 : 85.7 kg (189 lb) Wilson Body Weight: 73kg Resting Metabolic Rate: 1788 Estimated kilocalorie needs: 2190 kilocalories determined by 30 kcal/kg Estimated protein needs: 110 grams determined by 1.5 g/kg Wilson weight Estimated fluid needs: 2100 milliliters based on 1 mL per kcal NUTRITION FOCUSED PHYSICAL EXAM: Subcutaneous Fat Loss Orbital No fat loss Triceps No fat loss Mid-axillary at the iliac crest Unable to determine at this time Muscle Loss Locations: Temporalis No muscle loss Pectoralis No muscle loss Deltoids No muscle loss Interosseous No muscle loss Latissimus dorsi, trapezius Unable to determine at this time Quadriceps Unable to determine at this time Gastrocnemius Unable to determine at this time Potential micronutrient deficiency revealed in: Teeth - dentures upper only Edema: No Ascites: No Assessment of Functional Status: No functional impairment, normal with no limitations Temperature Max in 24 hours: Temp (24hrs), Av.5 ?C (97.7 ?F), Min:36.4 ?C (97.5 ?F), Max:36.9 ?C (98.4 ?F) BP 156/84 Pulse 91 Temp 36.5 ?C (97.7 ?F) (Oral) Resp 18 Ht 175.3 cm (5' 9) Wt 91 kg (200 lb 9.9 oz) SpO2 95% BMI 29.63 kg/m? Recent Labs 06/16/19 0150 GLUC 187* BUN 12 CREAT 0.58* NA 136 K 4.0 CHLOR 104 CO2 27 ALB 1.7* HB 8.6* HCT 26.4* WBC 15.49* Potential Signs of Inflammation: leukocytosis, hyperglycemia, low prealbumin, tachycardia and microbiologic cultures Current Facility-Administered Medications Medication Dose Route Frequency - HYDROmorphone HCl 0.5 mg injection (DILAUDID) 0.5 mg INTRAVENOUS q 3 H PRN - oxyCODONE IR 15 mg tab(s) (ROXICODONE) 15 mg ORAL q 3 H PRN - lactulose 20 g CUP (DUPHALAC, CONSTULOSE) 20 g ORAL TID - NaCl 0.9% iv infusion 100 mL/hr INTRAVENOUS CONTINUOUS - insulin NPH human 26 Units injection pen (intermediate acting) (NovoLIN N, HumuLIN N) 26 Units SUBCUTANEOUS BID 8A/BEDTIME - insulin lispro 16 Units pen (rapid acting) (HumaLOG KWIKPEN) 16 Units SUBCUTANEOUS w MEALS - polyethylene glycol 3350 17 g packet (MIRALAX, GLYCOLAX) 17 g ORAL DAILY - senna-docusate 8.6-50 mg 2 tablet (SENNA-S) 2 tablet ORAL BID - pregabalin 100 mg cap(s) (LYRICA) 100 mg ORAL TID - ceFAZolin iv piggyback 2 g in D5W (iso-osmotic) 100 mL (ANCEF) 2 g INTRAVENOUS q 8 HR - insulin lispro pen (rapid acting) (HumaLOG KWIKPEN) SUBCUTANEOUS w MEALS - DULoxetine 20 mg cap(s) (CYMBALTA) 20 mg ORAL BID - lisinopril 10 mg tab(s) (ZESTRIL, PRINIVIL) 10 mg ORAL DAILY - pantoprazole DR 40 mg tab(s) (PROTONIX) 40 mg ORAL DAILY - enoxaparin 40 mg injection (LOVENOX) 40 mg SUBCUTANEOUS DAILY - NaCl 0.9% 3-5 mL 3-5 mL INTRAVENOUS q 12 H - ondansetron 4 mg tab(s) (ZOFRAN) 4 mg ORAL q 6 H PRN Or - ondansetron (PF) 4 mg injection (ZOFRAN) 4 mg INTRAVENOUS q 6 H PRN - bisacodyl 10 mg suppository (DULCOLAX) 10 mg RECTAL DAILY PRN - dextrose 40 % 15 g 15 g ORAL PRN Or - glucagon 1 mg injection (GLUCAGEN) 1 mg INTRAMUSCULAR PRN Or - dextrose 50 % 12.5 g injection 12.5 g INTRAVENOUS PRN Date 06/15/19699 - 06/16/1965806/16/19699 - 06/17/19 0659 Shift 9316-9226 6010-7834 3976-4366 24 Hour Total 5923-0108 6726-0314 7608-4059 24 Hour Total INTAKE PO 0 026 731 5996 PO 0 827 066 9889 IV 1000 118 562 1688 OR Crystalloid intake (mL) 900 900 Volume (mL) (dextrose 5% in NaCl 0.9% iv infusion) 100 100 Volume (mL) (NaCl 0.9% iv infusion) 735 022 7212 Volume (mL) (albumin (25%) 25 g infusion) 120 120 Volume (mL) (ceFAZolin iv piggyback 2 g in D5W (iso-osmotic) 100 mL (ANCEF)) 100 100 200 Shift Total 1000 1320 1200 3520 OUTPUT Urine 550 300 2 852 300 300 Void (ml) 550 300 2 852 300 300 Urine Not Saved. 2 x 2 x Blood 500 500 Estimated Blood loss 500 500 Shift Total 1050 300 2 1352 300 300 Weight (kg) 91 91 91 91 91 91 91 91 Negative Pressure Wound Therapy Ankle -Left (Active) Negative Pressure: Wound Filler Foam 06/15/2019 2:26 PM Negative Pressure: Therapy Continuous 06/15/2019 2:26 PM Negative Pressure: mmHg 125 mmHg 06/15/2019 2:26 PM Negative Pressure: Output (mL) 0 06/14/2019 6:31 AM Number of days: Surgical Incision 06/10/19 1233 Leg - Left (Active) Dressing Status Clean, Dry AND Intact 06/15/2019 7:00 PM Frequency of Dressing Change Other: See Comment 06/14/2019 12:30 PM Dressing Change Due 06/16/19 06/15/2019 7:00 PM Dressing /Treatment Type Elastic Bandage/Wrap 06/15/2019 7:00 PM Incision Closures Other: See Comment 06/12/2019 8:20 AM Drainage Description None 06/15/2019 7:00 PM Drainage Amount None 06/15/2019 7:00 PM Edges Intact 06/14/2019 11:30 PM Hematoma No 06/15/2019 1:30 PM Number of days: 5 MNT Billing Type: Initial Assess/15 min 4 units SIGNATURE: Sugey Navarrete RD PATIENT NAME: Tori Cantor DATE: June 16, 2019 TIME: 9:13 AM PAGER: [phone] [facility] PROGRESSon 06-16-2019 PROGRESS HNO ID: [id number] Author: Puneet Leonardo Service: Hospital Medicine Author Type: Physician Type: Progress Notes Filed: 06/16/2019 3:51 PM Note Text: DEPARTMENT OF HOSPITAL MEDICINE PROGRESS NOTE SERVICE DATE: 06/16/2019 SERVICE TIME: 2:40 PM Hospital Medicine/Primary Attending: Puneet Leonardo MD Subjective CHIEF COMPLAINT: Sepsis INTERVAL HPI: No new complaints, no fever, left leg pain improving Current Facility-Administered Medications Medication Dose Route Frequency - lisinopril 10 mg tab(s) (ZESTRIL, PRINIVIL) 10 mg ORAL DAILY - pantoprazole DR 40 mg tab(s) (PROTONIX) 40 mg ORAL DAILY - enoxaparin 40 mg injection (LOVENOX) 40 mg SUBCUTANEOUS DAILY - NaCl 0.9% 3-5 mL 3-5 mL INTRAVENOUS q 12 H - ondansetron 4 mg tab(s) (ZOFRAN) 4 mg ORAL q 6 H PRN Or - ondansetron (PF) 4 mg injection (ZOFRAN) 4 mg INTRAVENOUS q 6 H PRN - bisacodyl 10 mg suppository (DULCOLAX) 10 mg RECTAL DAILY PRN - dextrose 40 % 15 g 15 g ORAL PRN Or - glucagon 1 mg injection (GLUCAGEN) 1 mg INTRAMUSCULAR PRN Or - dextrose 50 % 12.5 g injection 12.5 g INTRAVENOUS PRN - insulin lispro pen (rapid acting) (HumaLOG KWIKPEN) SUBCUTANEOUS w MEALS - DULoxetine 20 mg cap(s) (CYMBALTA) 20 mg ORAL BID - ceFAZolin iv piggyback 2 g in D5W (iso-osmotic) 100 mL (ANCEF) 2 g INTRAVENOUS q 8 HR - insulin NPH human 26 Units injection pen (intermediate acting) (NovoLIN N, HumuLIN N) 26 Units SUBCUTANEOUS BID 8A/BEDTIME - insulin lispro 16 Units pen (rapid acting) (HumaLOG KWIKPEN) 16 Units SUBCUTANEOUS w MEALS - polyethylene glycol 3350 17 g packet (MIRALAX, GLYCOLAX) 17 g ORAL DAILY - senna-docusate 8.6-50 mg 2 tablet (SENNA-S) 2 tablet ORAL BID - pregabalin 100 mg cap(s) (LYRICA) 100 mg ORAL TID - NaCl 0.9% iv infusion 100 mL/hr INTRAVENOUS CONTINUOUS - HYDROmorphone HCl 0.5 mg injection (DILAUDID) 0.5 mg INTRAVENOUS q 3 H PRN - oxyCODONE IR 15 mg tab(s) (ROXICODONE) 15 mg ORAL q 3 H PRN - lactulose 20 g CUP (DUPHALAC, CONSTULOSE) 20 g ORAL TID Objective PHYSICAL EXAM: BP 127/65 Pulse 94 Temp (Src) 97.5 (Oral) Resp 16 Ht 5' 9 (1.75m) Wt 200 lb 9.9 oz (91.0kg) SpO2 97% BMI 29.61 kg/(m2). O2 Therapy: Room Air GENERAL: Alert, no distress, cooperative SKIN: Skin color, texture, turgor normal. No rashes or lesions. EYES: PERRLA, EOMI OROPHARYNX: Negative NECK: No jugulovenous distention, LUNGS: CTAB, no wheeze or crackles CARDIAC: Normal S1 and S2; no rubs, murmurs, or gallops ABDOMEN: Abdomen soft, protuberant, non-tender, BS normal, No masses Perineum: +scrotal swelling with no erythema/warmth, drainage EXTREMITIES: L lower leg with external fixation device, + wound vac, + tenderness of LLE, NEURO: Cranial nerves III-XII intact Lines, Drains, and Airways Line Peripheral 06/09/19 1545 Left Wrist 20 Gauge 6 days Orthopaedic Device Immobilizer External Fixator -- days DATA: Diagnostic tests reviewed for today's visit: Most recent labs and imaging results. Assessment/Plan Active Problems: #Sepsis 2/2 LLE cellulitis/abscess and S. Aureus bacteremia -in setting of L trimalleolar ankle fracture -s/p IANDD and placement of external fixator?06/10, debridement of left leg and ankle 06/15 - ortho and ID input appreciated -continue IV antibiotics per ID ? #MSSA bacteremia -TTE and JOANNA without evidence of endocarditis -continue IV ancef per ID -monitor cultures # Severe constipation: - continue bowel regimen, give dulcolax suppository 06/16, mineral oil enema to follow if no result by the end of the day - TSH in AM #Hyponatremia- nephrology following ? #Leukocytosis- improving, 2/2 bacteremia and cellulitis/abscess as above. Monitor vitals. Daily CBC. ? #Hyperbilirubinemia: resolved # elevated Alk phos: likely from bone per GI # Hypoalbuminemia: ? 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 # + Hepatitis C antibody with hepatosplenomegaly: GI on consult, needs viral RNA load checked as OP, f/u with GI as outpatient ? #IDDM, uncontrolled, hyperglycemia- ?Discussed importance of compliance. -Endocrine on consult -Lantus and lispro adjusted per Endocrine. Continue SSIC ? #HTN-continue home lisinopril ? # Medical noncompliance ? # IVDA: last use 2 months ago after getting out of halfway Resolved Problems: * No resolved hospital problems. * Medication and Non-Pharmacologic VTE Prophylaxis/Anticoagulant s Anticoagulant AND Antiplatelet Medications (From admission, onward) Start Dose Route Frequency Ordered Stop 06/10/192099 enoxaparin 40 mg injection (LOVENOX) (Medical Risk Categories) 40 mg SUBCUTANEOUS DAILY 06/09/192049 -- 06/09/192099 vte non-pharmacologic prophylaxis - none indicated (de,oh) 06/09/192099 activity - mobilize patient (de,wy) VTE Prophylaxis: VTE prophylaxis appropriate Disposition: Extended Care Facility Plan of care discussed with: Provider, RN, Patient SIGNATURE: Puneet Leonardo MD PATIENT NAME: Tori Cantor DATE: June 16, 2019 TIME: 2:40 PM PAGER: [phone] Normal [facility] PROGRESS HNO ID: [id number] Author: Ant Yusra Service: Nephrology Author Type: Physician Type: Progress Notes Filed: 06/16/2019 11:27 AM Note Text: [facility] Progress Note Subjective/ 44 year old year old male who we are seeing in consultation for hyponatremia. Interval Hx: Seen and examined Increased PO intake Pain is better controlled NAEON ROS (-) unless noted above Objective/ 06/15/19200206/16/19 0050 06/16/19 0443 06/16/19 0900 BP: 136/87 128/68 126/70 156/84 Pulse: 108 103 101 91 Resp: 18 18 18 16 Temp: 36.6 ?C (97.9 ?F) 36.9 ?C (98.4 ?F) 36.5 ?C (97.7 ?F) 36.5 ?C (97.7 ?F) TempSrc: Oral Oral Oral Axillary SpO2: 98% 94% 95% 94% Weight: Height: 24HR INTAKE/OUTPUT: Intake/Output Summary (Last 24 hours) at 06/16/2019926 Last data filed at 06/16/2019 0900 Gross per 24 hour Intake 3520 ml Output 1102 ml Net 2418 ml Constitutional: Alert, awake, no apparent distress Head: AT NC Neck: Supple, No JVD, no thyromegaly EENT: eyes nonicteric, mm dry Cardiovascular: RRR, good S1, S2. No murmurs, clicks, or rubs Respiratory: CTA without any wheezing, rhonchi, or rales, no accessory muscle use Abdomen: soft, NT, ND Extremity: +trace BLE peripheral edema, no tremors, wound vac to LLE Neurological: moves all 4 extremities. No focal neuro deficit Psychological: Cooperative throughout assessment. Current Facility-Administered Medications Medication Dose Route Frequency - HYDROmorphone HCl 0.5 mg injection (DILAUDID) 0.5 mg INTRAVENOUS q 3 H PRN - oxyCODONE IR 15 mg tab(s) (ROXICODONE) 15 mg ORAL q 3 H PRN - lactulose 20 g CUP (DUPHALAC, CONSTULOSE) 20 g ORAL TID - NaCl 0.9% iv infusion 100 mL/hr INTRAVENOUS CONTINUOUS - insulin NPH human 26 Units injection pen (intermediate acting) (NovoLIN N, HumuLIN N) 26 Units SUBCUTANEOUS BID 8A/BEDTIME - insulin lispro 16 Units pen (rapid acting) (HumaLOG KWIKPEN) 16 Units SUBCUTANEOUS w MEALS - polyethylene glycol 3350 17 g packet (MIRALAX, GLYCOLAX) 17 g ORAL DAILY - senna-docusate 8.6-50 mg 2 tablet (SENNA-S) 2 tablet ORAL BID - pregabalin 100 mg cap(s) (LYRICA) 100 mg ORAL TID - ceFAZolin iv piggyback 2 g in D5W (iso-osmotic) 100 mL (ANCEF) 2 g INTRAVENOUS q 8 HR - insulin lispro pen (rapid acting) (HumaLOG KWIKPEN) SUBCUTANEOUS w MEALS - DULoxetine 20 mg cap(s) (CYMBALTA) 20 mg ORAL BID - lisinopril 10 mg tab(s) (ZESTRIL, PRINIVIL) 10 mg ORAL DAILY - pantoprazole DR 40 mg tab(s) (PROTONIX) 40 mg ORAL DAILY - enoxaparin 40 mg injection (LOVENOX) 40 mg SUBCUTANEOUS DAILY - NaCl 0.9% 3-5 mL 3-5 mL INTRAVENOUS q 12 H - ondansetron 4 mg tab(s) (ZOFRAN) 4 mg ORAL q 6 H PRN Or - ondansetron (PF) 4 mg injection (ZOFRAN) 4 mg INTRAVENOUS q 6 H PRN - bisacodyl 10 mg suppository (DULCOLAX) 10 mg RECTAL DAILY PRN - dextrose 40 % 15 g 15 g ORAL PRN Or - glucagon 1 mg injection (GLUCAGEN) 1 mg INTRAMUSCULAR PRN Or - dextrose 50 % 12.5 g injection 12.5 g INTRAVENOUS PRN Data/ CBC, Coags, BMP, Mg, Phos Recent Labs 06/16/19 0150 06/15/19 0208 06/14/19 0107 WBC 15.49* 22.32* 33.46* HB 8.6* 9.0* 9.2* HCT 26.4* 27.3* 27.2* PLT 454* 429* 410* NA 136 133* 130* K 4.0 4.1 3.9 CHLOR 104 103 97* CO2 BUN 12 18 20* CREAT 0.58* 0.68 0.64* GLUC 187* 145* 235* CA 8.2* 8.4* 8.6 Liver Function, Amylase, AND Lipase Recent Labs 06/16/19 0150 06/15/19 0208 06/14/19 0107 TPROT 6.1* 6.2* 5.8* ALB 1.7* 1.5* 1.4* ALT 15 13 14 AST 11* 8* 12* ALKPHOS 159* 203* 244* TBILI 0.4 0.5 0.6 Cardiac Enzymes Assessment/ 1. Hyponatremia (increased free H2O intake, poor osmole intake, pain with ADH increase) 2. 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 Sepsis 2/2 LLE cellulitis (S. Aureus bacteremia) 4. 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 Intravenous drug abuse 6. Left leg splint s/p ( left ankle # ) 7. Hypoalbuminemia Plan/ Na Continue to improve S/p debridement of left leg and ankle wound Continue oral h2o restriction (1200 ml/day) Continue to encourage protein intake ( Boost glucose control BID) Continue to encourage good PO intake Pain control will suppress the ADH release No other changes Will continue to follow Normal [facility] PROGRESS HNO ID: [id number] Author: Sylwia Torrez Service: Infectious Disease Author Type: Physician Type: Progress Notes Filed: 06/16/2019 9:20 AM Note Text: INFECTIOUS DISEASE PROGRESS NOTE Patient Name: Tori Cantor Date: 06/15/2019 ASSESSMENT: 1. Left ankle fracture/ dislocation with large area of necrotic skin, fascia and muscle s/p I and D on 06/15/2019 2. Left distal tibial osteomyelitis due to MSSA per CT left leg 3. High grade MSSA bacteremia cleared 06/12 4. Type 1 diabetes PLAN: POD1 Extensive surgical debridement of the left lower extremity with large area of necrotic skin, fascia and muscle aka necrotizing fascitis. Continue with cefazolin 2 grams TID IV Follow up on the repeat blood cultures has been no growth since 06/12 JOANNA was completed on 06/14 and did not show no vegetations Anticipate 6-8 weeks of IV cefazolin once the bacteremia clears PICC placement tomorrow INTERVAL HISTORY: ROS done with pt/RN and negative unless stated. Pain at postop site. Worried about swelling in scrotum, no pain MEDICATIONS: reviewed. Current Facility-Administered Medications Medication Dose Route Frequency - lisinopril 10 mg tab(s) (ZESTRIL, PRINIVIL) 10 mg ORAL DAILY - pantoprazole DR 40 mg tab(s) (PROTONIX) 40 mg ORAL DAILY - enoxaparin 40 mg injection (LOVENOX) 40 mg SUBCUTANEOUS DAILY - NaCl 0.9% 3-5 mL 3-5 mL INTRAVENOUS q 12 H - ondansetron 4 mg tab(s) (ZOFRAN) 4 mg ORAL q 6 H PRN Or - ondansetron (PF) 4 mg injection (ZOFRAN) 4 mg INTRAVENOUS q 6 H PRN - bisacodyl 10 mg suppository (DULCOLAX) 10 mg RECTAL DAILY PRN - dextrose 40 % 15 g 15 g ORAL PRN Or - glucagon 1 mg injection (GLUCAGEN) 1 mg INTRAMUSCULAR PRN Or - dextrose 50 % 12.5 g injection 12.5 g INTRAVENOUS PRN - insulin lispro pen (rapid acting) (HumaLOG KWIKPEN) SUBCUTANEOUS w MEALS - DULoxetine 20 mg cap(s) (CYMBALTA) 20 mg ORAL BID - ceFAZolin iv piggyback 2 g in D5W (iso-osmotic) 100 mL (ANCEF) 2 g INTRAVENOUS q 8 HR - insulin NPH human 26 Units injection pen (intermediate acting) (NovoLIN N, HumuLIN N) 26 Units SUBCUTANEOUS BID 8A/BEDTIME - insulin lispro 16 Units pen (rapid acting) (HumaLOG KWIKPEN) 16 Units SUBCUTANEOUS w MEALS - polyethylene glycol 3350 17 g packet (MIRALAX, GLYCOLAX) 17 g ORAL DAILY - senna-docusate 8.6-50 mg 2 tablet (SENNA-S) 2 tablet ORAL BID - pregabalin 100 mg cap(s) (LYRICA) 100 mg ORAL TID - NaCl 0.9% iv infusion 100 mL/hr INTRAVENOUS CONTINUOUS - HYDROmorphone HCl 0.5 mg injection (DILAUDID) 0.5 mg INTRAVENOUS q 3 H PRN - oxyCODONE IR 15 mg tab(s) (ROXICODONE) 15 mg ORAL q 3 H PRN - lactulose 20 g CUP (DUPHALAC, CONSTULOSE) 20 g ORAL TID PHYSICAL EXAM: Vital signs: BP 156/84 Pulse 91 Temp 36.5 ?C (97.7 ?F) (Axillary) Resp 16 Ht 175.3 cm (5' 9) Wt 91 kg (200 lb 9.9 oz) SpO2 94% BMI 29.63 kg/m? Temp (24hrs), Av.5 ?C (97.7 ?F), Min:36.4 ?C (97.5 ?F), Max:36.7 ?C (98.1 ?F) General: alert, oriented, NAD Lungs: bilaterally clear to auscultation Heart: regular rate and rhythm Abdomen: soft, non tender, non distended, BS+ Extremities: no swollen joints. LE postop dressing, vac and fixator Skin: no rash IV sites - wnl Lab data: reviewed Recent Labs 06/16/19 0150 06/15/19 0208 06/14/19 0107 WBC 15.49* 22.32* 33.46* HB 8.6* 9.0* 9.2* PLT 454* 429* 410* NA 136 133* 130* K 4.0 4.1 3.9 CO2 27 26 27 BUN 12 18 20* CREAT 0.58* 0.68 0.64* AST 11* 8* 12* ALT 15 13 14 TBILI 0.4 0.5 0.6 ALKPHOS 159* 203* 244* Microbiology data: reviewed Imaging data: reviewed Thank you for the consult. We will continue to follow the patient with you. Please call for any questions or concerns. Sylwia Torrez MD [facility] PROGRESS HNO ID: [id number] Author: Remy Peraza Service: Pain Management Author Type: Physician Type: Progress Notes Filed: 06/16/2019 8:17 AM Note Text: Name: TORI CANTOR Age: [age] year old PAIN MANAGEMENT: s/p IANDD left tibia wounds; external fixation LLE, left trimalleolar ankle fracture/dislocation 05/27; Right foot Charcot deformity, DM neuropathy, IVDA 24H Pain Regimen: Cymbalta 20mg po bid Dilaudid 0.5mg IV x 1 Oxycodone 10 mg ?3 Lyrica 100 mg x 1 Interval HPI; status post debridement of left leg and ankle wound, application of wound VAC 06/15. Large area of necrotic skin, fascia and muscle noted, significant blood loss, proximally 500 mL. Still with significant leukocytosis, H/H reasonably stable. 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 Patient had been noncompliant with nonweightbearing restrictions. He also was seen in the ED 06/08 after removing his own splint; patient left AMA. Patient is a IV vancomycin. He underwent irrigation and debridement on 06/10 the wound VAC and external fixator placement. Blood cultures positive for MSSA bacteremia. JOANNA negative for infective endocarditis. CT left tibia and fibula showing concern for osteomyelitis, possible calf abscess and gas forming infection. Ongoing leukocytosis. Patient on Ancef Prior to admission patient was taking Lyrica 100 mg by mouth 3 times a day. He smokes 1 pack per day. He denies alcohol. He does use marijuana infrequently. He states he had done street drugs for 30 years and then he last used a while ago. He has a history of IV cocaine and methamphetamine. He also admits to history of frequent IV fentanyl use. 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 05/31/2019 2 05/31/2019 Oxycodone-Acetaminophen 5-325 6.00 1 Da Mil [id number] Pha ([id number]) [address] [facility] 01/31/2019 1 12/07/2018 Lyrica 150 MG Capsule 90.00 30 Ch Pet [id number] Wal ([id number]) 1 2.88 LME [place] 12/07/2018 1 12/07/2018 Lyrica 150 MG Capsule 90.00 30 Ch Pet [id number] Wal (2320) 0 2.88 [place]ME [place] 10/05/2018 1 10/04/2018 Hydrocodone-Acetamin 5-325 MG 18.00 3 Ju And [id number] Wal (2320) 0 30.00 [place]ME [place] 03/03/2018 1 03/03/2018 Lyrica 150 MG Capsule 90.00 30 Ch Pet [id number] Wal (2320) 0 2.88 LME [place] 10/28/2017 1 08/25/2017 Lyrica 150 MG Capsule 90.00 30 Ch Pet [id number] Wal (2320) 1 2.88 [place]ME [place] 09/11/2017 1 08/25/2017 Lyrica 150 MG Capsule 90.00 30 Ch Pet [id number] Wal (2320) 0 2.88 LME [place] 07/04/2017 1 01/14/2017 Lyrica 150 MG Capsule 81.00 27 Ch Pet [id number] Wal (2320) 2 2.88 LME [facility] [place] Current Facility-Administered Medications Medication Dose Route Frequency Provider Last Rate Last Dose - HYDROmorphone HCl 0.5-1 mg injection (DILAUDID) 0.5-1 mg INTRAVENOUS q 3 H PRN Bryson (Res) Gennyowski 0.5 mg at 06/15/192002 - NaCl 0.9% iv infusion 100 mL/hr INTRAVENOUS CONTINUOUS Bryson (Res) Daljit 100 mL/hr at 06/16/19 0150 100 mL/hr at 06/16/19 0150 - insulin NPH human 26 Units injection pen (intermediate acting) (NovoLIN N, HumuLIN N) 26 Units SUBCUTANEOUS BID 8A/BEDTIME Bryson (Res) Pinkowski 26 Units at 06/15/19 0744 - insulin lispro 16 Units pen (rapid acting) (HumaLOG KWIKPEN) 16 Units SUBCUTANEOUS w MEALS Bryson (Res) Pinkowski 16 Units at 06/15/19 1608 - polyethylene glycol 3350 17 g packet (MIRALAX, GLYCOLAX) 17 g ORAL DAILY Evangelister (Res) Pinkowski 17 g at 06/14/19 1805 - oxyCODONE IR 5-10 mg tab(s) (ROXICODONE) 5-10 mg ORAL q 3 H PRN Bryson (Res) Pinkowski 10 mg at 06/15/19 2341 - senna-docusate 8.6-50 mg 2 tablet (SENNA-S) 2 tablet ORAL BID Bryson (Res) Gennyowski 2 tablet at 06/15/192002 - pregabalin 100 mg cap(s) (LYRICA) 100 mg ORAL TID Bryson (Res) Gennyowski 100 mg at 06/15/192002 - ceFAZolin iv piggyback 2 g in D5W (iso-osmotic) 100 mL (ANCEF) 2 g INTRAVENOUS q 8 HR Evangelister (Res) Pinkowski 200 mL/hr at 06/15/19 2336 2 g at 06/15/19 2336 - insulin lispro pen (rapid acting) (HumaLOG KWIKPEN) SUBCUTANEOUS w MEALS Bryson (Res) Pinkowski 3 Units at 06/15/19 0744 - DULoxetine 20 mg cap(s) (CYMBALTA) 20 mg ORAL BID Evangelister (Res) Pinkowski 20 mg at 06/15/19 2243 - lisinopril 10 mg tab(s) (ZESTRIL, PRINIVIL) 10 mg ORAL DAILY Evangelister (Res) Pinkowski 10 mg at 06/14/19 0834 - pantoprazole DR 40 mg tab(s) (PROTONIX) 40 mg ORAL DAILY Arturoopher (Res) Pinkowski 40 mg at 06/14/19 0834 - enoxaparin 40 mg injection (LOVENOX) 40 mg SUBCUTANEOUS DAILY Evangelister (Res) Pinkowski 40 mg at 06/15/192002 - NaCl 0.9% 3-5 mL 3-5 mL INTRAVENOUS q 12 H Bryson (Res) Gennyowski 3 mL at 06/15/19 2003 - ondansetron 4 mg tab(s) (ZOFRAN) 4 mg ORAL q 6 H PRN Christopher (Res) Gennyowski Or - ondansetron (PF) 4 mg injection (ZOFRAN) 4 mg INTRAVENOUS q 6 H PRN Christopher (Res) Pinkowski - bisacodyl 10 mg suppository (DULCOLAX) 10 mg RECTAL DAILY PRN Christopher (Res) Pinkowski - dextrose 40 % 15 g 15 g ORAL PRN Christopher (Res) Pinkowski Or - glucagon 1 mg injection (GLUCAGEN) 1 mg INTRAMUSCULAR PRN Christopher (Res) Pinkowski Or - dextrose 50 % 12.5 g injection 12.5 g INTRAVENOUS PRN Christopher (Res) Pinkowski ibuprofen (MOTRIN) 400 mg tablet, Take 400 mg by mouth every 6 hours as needed., Disp: , Rfl: insulin glargine (LANTUS SOLOSTAR U-100 INSULIN) 100 unit/mL (3 mL) inpn, Inject 24 Units subcutaneously twice daily. While at [facility] , Disp: , Rfl: levoFLOXacin (LEVAQUIN) 750 mg tablet, Take 750 mg by mouth once daily. End date 06-23-19, Disp: , Rfl: enoxaparin (LOVENOX) 40 mg/0.4 mL syrg, Inject 40 mg subcutaneously every 24 hours., Disp: , Rfl: oxyCODONE-acetaminophen (PERCOCET) 5-325 mg tablet, Take 1 tablet by mouth every 6 hours as needed., Disp: , Rfl: insulin detemir U-100 (LEVEMIR FLEXTOUCH U-100 INSULN) 100 unit/mL (3 mL) inpn injection, Inject 30 Units subcutaneously twice daily. While at home, Disp: , Rfl: doxycycline monohydrate (AVIDOXY) 100 mg tablet, Take 1 tablet by mouth twice daily for 14 days. (Patient taking differently: Take 100 mg by mouth twice daily. End date 06-23-19 ), Disp: 28 tablet, Rfl: 0 acetaminophen (TYLENOL) 325 mg tablet, Take 2 tablets by mouth every 6 hours as needed., Disp: , Rfl: insulin lispro (HUMALOG KWIKPEN INSULIN) 100 unit/mL inpn, Inject 14 Units subcutaneously three times daily before meals. (Patient taking differently: Inject subcutaneously three times daily before meals. Sliding scale 100-150: 2 units 151-200: 4 units 201-250: 6 units 251-300: 8 units 301-350: 10 units 351-400: 12 units 401-450: 14 units <70 or >400 call ), Disp: , Rfl: lisinopril (ZESTRIL, PRINIVIL) 10 mg tablet, Take 1 tablet by mouth once daily for 15 days., Disp: 15 tablet, Rfl: 0, 05/26/[address] (PROTONIX) 40 mg tablet, Take 40 mg by mouth once daily. , Disp: , Rfl: , 05/26/2019 Lancets lancets, Use as instructed, Disp: 100 Each, Rfl: 11, Taking Insulin Dudley, Disposable, (BD ULTRAFINE III MINI PEN) 31 gauge x 3/16 ndle, USE WITH INSULIN PENS 4TIMES DAILY, Disp: 400 Each, Rfl: 3, Taking blood sugar diagnostic (ONETOUCH ULTRA TEST) test strip, CHECK BLOOD SUGARS 6 TIMES DAILY, Disp: 200 Strip, Rfl: 3, Taking DULoxetine (CYMBALTA) 30 mg capsule, Take 1 capsule by mouth once daily. (Patient taking differently: Take 120 mg by mouth once daily. ), Disp: , Rfl: 0, 05/25/2019 pregabalin (LYRICA) 150 mg capsule, Take 100 mg by mouth three times daily. , Disp: , Rfl: , Taking cyclobenzaprine (FLEXERIL) 5 mg tablet, Take 5 mg by mouth every 8 hours as needed., Disp: , Rfl: Social History Tobacco Use - Smoking status: Current Every Day Smoker Packs/day: 1.00 Types: Cigarettes - Smokeless tobacco: Never Used Substance Use Topics - Alcohol use: Yes Comment: socially - Drug use: Yes Types: Cocaine, Amphetamines Comment: hist of cocaine and marajuana use, fentanyl FAMILY HISTORY Problem Relation Age of Onset - Hypertension Mother - Diabetes Mother - Stroke Mother - Heart Mother CHF - Cataract Mother - Hypertension Father - COPD Father - Emphysema Father PAST SURGICAL HISTORY Procedure Laterality Date - NONE ROS: All of the following reviewed and negative except as noted below: GENERAL: no fever, chills, sweats, weight loss, fatigue, generalized weakness HEENT: no headache, vision changes, eye discomfort, hearing change, ear discomfort, sinus pain, nasal discharge or congestion, oral lesions, soreness, dental problem NECK: no adenopathy, discomfort, change in ROM CHEST: no shortness of breath, dyspnea on exertion, wheezing, cough, sputum production or chest pain HEART: no chest pain, palpitations, syncope ABDOMEN: no nausea, vomiting, constipation, diarrhea, abdominal pain : no dysuria, urgency, frequency, history of stones, incontinence NEURO: no confusion or alteration in consciousness, slurred speech, seizure, focal weakness EXTREMITIES: See history of present illness HEME: no new adenopathy, bruises, petechiae PSYCH: no depression, anxiety, agitation PAIN PSYCHIATRIC EXAM: GENERAL: alert, oriented to person, place, time JUDGMENT AND INSIGHT: intact APPEARANCE: neatly groomed DEMEANOR: coooperative, not hostile, mistrustful, preoccupied, or demanding ACTIVITY: normal, not hyperactive or hypoactive, no tremors, tics EYE CONTACT: normal SPEECH: normal, rate, volume, articulation, coherence, spontaneity MOOD: normal, without overt sadness, grief, anxiety, appropriate to situation IDEATION: normal and without suicidal or homicidal ideation MEMORY: intact PHYSICAL EXAMINATION: GENERAL: well nourished and developed; no acute distress; alert and oriented x 3; intact judgement and insight HEENT: no evidence of trauma; cranial nerves intact; eyes clear EOMI; no hearing deficits apparent; nasal passages unremarkable; throat and mucous membranes clear NECK: supple without lymphadenopathy; no JVD; no thyromegaly CHEST: clear bilaterally to auscultation; normal chest movement; no rales or rhonchi HEART: regular rate and rhythm, normal S1 and S2, no murmurs, clicks, rubs, or gallops ABDOMEN: soft; nondistended; bowel sounds present; no hepatomegaly; no splenomegaly; no tenderness EXTREMITIES: no evidence of clubbing; no cyanosis; left leg with wound VAC; intact external fixator 1+ edema NEURO: cranial nerves intact; no focal deficits; no confusion; no tremor; sensorium normal SKIN: no decubitus lesions HEME: no bruising; no adenopathy PSYCH: no evidence of depression; no anxiety; no agitation; no apparent hallucinations BP 128/68 Pulse 103 Temp 36.9 ?C (98.4 ?F) (Oral) Resp 18 Ht 175.3 cm (5' 9) Wt 91 kg (200 lb 9.9 oz) SpO2 94% BMI 29.63 kg/m? BMI 29.63 kg/(m2) Date 06/14/19 07 - 06/15/19 0659 Shift 0048-7780 9028-3723 5563-6845 24 Hour Total INTAKE Shift Total OUTPUT Urine 1300 1300 Shift Total 1300 1300 Weight (kg) 91 91 91 91 Date 06/13/19 07 - 06/14/19 0659 06/14/19699 - 06/15/19 0659 Shift 3441-3919 3453-4329 3898-9561 24 Hour Total 0423-8535 2643-2453 7432-1709 24 Hour Total INTAKE IV 700 700 Volume (mL) (NaCl 0.9% iv infusion) 600 600 Volume (mL) (ceFAZolin iv piggyback 2 g in D5W (iso-osmotic) 100 mL (ANCEF)) 100 100 Shift Total 700 700 OUTPUT Urine 227 142 4744 1300 1300 Void (ml) 070 402 9992 1300 1300 Drains 0 0 Negative Pressure: Output (mL) (Negative Pressure Wound Therapy Ankle -Left) 0 0 # of BMs Number of BMs 0 x 0 x Shift Total 400 750 0 1150 1300 1300 Weight (kg) 91 91 91 91 91 91 91 91 ABNORMAL/NEW FINDINGS: NONE RADIOLOGY/DIAGNOSTICS: LABORATORY: CBC: Recent Labs 06/16/19 0150 WBC 15.49* RBC 2.96* HB 8.6* HCT 26.4* PLT 454* MCV 89.2 MCH 29.1 MPV 10.1 RDW 14.3 CMP: Recent Labs 06/16/19 0150 NA 136 K 4.0 CHLOR 104 CO2 27 BUN 12 CREAT 0.58* GLUC 187* TPROT 6.1* CA 8.2* TBILI 0.4 ALKPHOS 159* ALT 15 AST 11* ANION 9 Heme: No results for input(s): RETICP, ABSRETIC, LD, VIKRAM, FE, TIBC, TRANSFERSAT in the last 24 hours. 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 (HCC) Hypertension Gerd (Gastroesophageal Reflux Disease) Microalbuminuria History of Diabetic Gastroparesis Diabetic Polyneuropathy Associated With Type 1 Diabetes Mellitus (Hcc) Depression With Anxiety Charcot's Joint of Right Foot Hyperlipidemia Hep C W/O Coma, Chronic (Hcc) History of Drug Abuse in Remission ([facility]) Ivdu (Intravenous Drug User) Tobacco Abuse Left Ankle Joint Deformity Hyperglycemia Nicotine use disorder, F17.2 Closed Fracture of Left Ankle Sepsis (Hcc) PLAN: Status post debridement of left leg and ankle wounds, external fixator placement and wound VAC 06/10; repeat debridement, wound VAC placement 06/15 Left trimalleolar ankle fracture/dislocation on 05/27; noncompliant with nonweightbearing and wound care On Ancef for MSSA bacteremia; concern for osteomyelitis of tibia and fibula. JOANNA negative for endocarditis. CT also demonstrated concern for abscess along posterior tibia. History of polysubstance abuse including IV drug abuse; patient denies recent abuse Dilaudid 0.5 mg IV every 3 hours when necessary breakthrough pain Increase Oxycodone 15 milligram every 3 hours when necessary severe pain Cymbalta 20 mg twice a day Change Lyrica 100 mg by mouth 3 times a day No BM times 2?3 weeks. Patient has refused laxatives. Will attempt lactulose as discussed. Senna S2 by mouth twice a day, MiraLAX daily, Dulcolax suppository as needed Oxycodone prescription placed in chart. Plans to return to senior living facility at discharge noted Remy Peraza M.D. [facility] PROGRESS HNO ID: [id number] Author: Gareth Uriarte Service: Orthopaedic Surgery Author Type: Physician Type: Progress Notes Filed: 06/16/2019 8:08 AM Note Text: ORTHOPAEDIC SURGERY POSTOP DAILY PROGRESS NOTE Patient Name: Tori Cantor Date of Evaluation: 06/16/2019 Admission Date: 06/09/2019 Time of Evaluation: 6:51 AM ASSESSMENT: 44 year old male POD # 1 IANDD of left leg and ankle wound, application of wound vac, POD # 6 IANDD left leg and ankle wound, application of wound vac, application of ex fix PLAN: Pain Medications: Per pain management DVT prophylaxis: per primary, ok for dvt chemoppx from orthopaedic standpoint Perioperative Antibiotics: per primary, Ancef 2g Q8H Diet Plan: Diet carbohydrate controlled Mobilization, Range of Motion, and Weight bearing: NWB LLE, Ex fix in place Dressing Management: Pin site care: xeroform and kerlix daily changes ? Est. Length Of Stay / Discharge Destination: Per primary Any Other Issues? Sepsis, hyponatremia, Diabetes, Hepatitis C, IDDM Consults:Endocrinology, Pain management, ID, nephrology, CV, PT, OT, care management INTERVAL HPI: Patient monitored, no new events overnight. Patient states that they are comfortable. Well Controlled pain. Denies nausea/vomitting. OBJECTIVE: BP 126/70 Pulse 101 Temp 36.5 ?C (97.7 ?F) (Oral) Resp 18 Ht 175.3 cm (5' 9) Wt 91 kg (200 lb 9.9 oz) SpO2 95% BMI 29.63 kg/m? Intake/Output Summary (Last 24 hours) 06/15 2300 - 06/16 0659 In: 1200 [PO:600; IV:600] Out: 2 [Urine:2] Exam: General: NAD, AAOx3 Extremities: Left Lower Extremity: Wound vac in place, sero sang drainage Ex fix in place SILT S/S/SP/DP/T Motor intact DF/PF/EHL DP pulse palpable, foot warm with pulses Compartments soft, compressible. Tolerates passive stretch of digits. Labs: BMP: Sodium 136 06/16/2019 Potassium 4.0 06/16/2019 Chloride 104 06/16/2019 CO2 27 06/16/2019 BUN 12 06/16/2019 Creatinine 0.58 06/16/2019 Glucose 187 06/16/2019 CBC: WBC 15.49 06/16/2019 Hemoglobin 8.6 06/16/2019 Hematocrit 26.4 06/16/2019 Platelet Count 454 06/16/2019 COAGS: APTT 27.6 06/09/2019 PT INR 1.09 06/10/2019 SED RATE/CRP: Sed Rate, Westergren 84 06/08/2019 CRP 23.80 06/08/2019 Imaging: No new images Bryson Bocanegra MD Resident, Orthopaedic Surgery Pager #: [phone] 06/16/2019 6:51 AM Please page [phone] from 5p-6a and on weekends for any issues. Agree with resident assessment and plan. Wound vac changes by wound center [facility] PROGRESS HNO ID: [id number] Author: Donnell Garcia Service: Infectious Disease Author Type: Physician Type: Progress Notes Filed: 06/15/2019 10:42 PM Note Text: INFECTIOUS DISEASE PROGRESS NOTE Patient Name: Tori Cantor Date: 06/15/2019 ASSESSMENT: 1. Left ankle fracture/ dislocation with large area of necrotic skin, fascia and muscle s/p I and D on 06/15/2019 2. Left distal tibial osteomyelitis due to MSSA per CT left leg 3. High grade MSSA bacteremia 4. Type 1 diabetes PLAN: Extensive surgical debridement of the left lower extremity with large area of necrotic skin, fascia and muscle aka necrotizing fascitis. Follow up on the cultures but suspect all is due to MSSA. Continue with cefazolin 2 grams TID IV Follow up on the repeat blood cultures JOANNA was completed on 06/14 and did not show no vegetations Anticipate 6-8 weeks of IV cefazolin once the bacteremia clears INTERVAL HISTORY: ROS done with pt/RN and negative unless stated. Seen just after surgery MEDICATIONS: reviewed. Current Facility-Administered Medications Medication Dose Route Frequency - lisinopril 10 mg tab(s) (ZESTRIL, PRINIVIL) 10 mg ORAL DAILY - pantoprazole DR 40 mg tab(s) (PROTONIX) 40 mg ORAL DAILY - enoxaparin 40 mg injection (LOVENOX) 40 mg SUBCUTANEOUS DAILY - NaCl 0.9% 3-5 mL 3-5 mL INTRAVENOUS q 12 H - ondansetron 4 mg tab(s) (ZOFRAN) 4 mg ORAL q 6 H PRN Or - ondansetron (PF) 4 mg injection (ZOFRAN) 4 mg INTRAVENOUS q 6 H PRN - bisacodyl 10 mg suppository (DULCOLAX) 10 mg RECTAL DAILY PRN - dextrose 40 % 15 g 15 g ORAL PRN Or - glucagon 1 mg injection (GLUCAGEN) 1 mg INTRAMUSCULAR PRN Or - dextrose 50 % 12.5 g injection 12.5 g INTRAVENOUS PRN - perflutren lipid microspheres 1.1 mg/mL 1.3 mL injection (DEFINITY) 1.3 mL INTRAVENOUS DIRECTED PRN - insulin lispro pen (rapid acting) (HumaLOG KWIKPEN) SUBCUTANEOUS w MEALS - DULoxetine 20 mg cap(s) (CYMBALTA) 20 mg ORAL BID - ceFAZolin iv piggyback 2 g in D5W (iso-osmotic) 100 mL (ANCEF) 2 g INTRAVENOUS q 8 HR - insulin NPH human 26 Units injection pen (intermediate acting) (NovoLIN N, HumuLIN N) 26 Units SUBCUTANEOUS BID 8A/BEDTIME - insulin lispro 16 Units pen (rapid acting) (HumaLOG KWIKPEN) 16 Units SUBCUTANEOUS w MEALS - polyethylene glycol 3350 17 g packet (MIRALAX, GLYCOLAX) 17 g ORAL DAILY - oxyCODONE IR 5-10 mg tab(s) (ROXICODONE) 5-10 mg ORAL q 3 H PRN - senna-docusate 8.6-50 mg 2 tablet (SENNA-S) 2 tablet ORAL BID - pregabalin 100 mg cap(s) (LYRICA) 100 mg ORAL TID - HYDROmorphone HCl 0.5-1 mg injection (DILAUDID) 0.5-1 mg INTRAVENOUS q 3 H PRN - NaCl 0.9% iv infusion 100 mL/hr INTRAVENOUS CONTINUOUS PHYSICAL EXAM: Vital signs: BP 147/89 Pulse 102 Temp 36.4 ?C (97.5 ?F) (Temporal) Resp 18 Ht 175.3 cm (5' 9) Wt 91 kg (200 lb 9.9 oz) SpO2 98% BMI 29.63 kg/m? Temp (24hrs), Av.5 ?C (97.7 ?F), Min:36.4 ?C (97.5 ?F), Max:36.7 ?C (98.1 ?F) General: alert, oriented, NAD Lungs: bilaterally clear to auscultation Heart: regular rate and rhythm Abdomen: soft, non tender, non distended, BS+ Extremities: no swollen joints Skin: no rash IV sites - wnl Lab data: reviewed Recent Labs 06/15/19 0208 06/14/19 0107 06/13/19 0221 WBC 22.32* 33.46* 26.16* HB 9.0* 9.2* 9.4* PLT 429* 410* 350 NA 133* 130* 130* K 4.1 3.9 3.8 CO2 26 27 28 BUN 18 20* 25* CREAT 0.68 0.64* 0.71 AST 8* 12* 17 ALT 13 14 17 TBILI 0.5 0.6 0.8 ALKPHOS 203* 244* 282* Microbiology data: reviewed Imaging data: reviewed Donnell Garcia MD General and Orthopedics Infectious Diseases Pager: [phone] [facility] ALLIED HEALTHon 06-15-2019 ALLIED HEALTH HNO ID: [id number] Author: Noram (Rn) MATT Garza Service: Diabetes Education Author Type: Registered Nurse Type: Allied Health Filed: 06/15/2019 11:15 AM Note Text: Consult received. Chart reviewed. Pt currently in OR. Will continue to follow for DM ed needs. [facility] ANES Le 06-15-2019 ANES POST HNO ID: [id number] Author: Eduarda Pierson Service: Anesthesiology Author Type: Anesthesiologist Type: Anesthesia PostOp Filed: 06/15/2019 2:14 PM Note Text: POST ANESTHESIA EVALUATION NOTE SERVICE DATE: 06/15/2019 SERVICE TIME: 1400 PM : 1975 Vitals: 06/15/19 0820 06/15/19 1027 06/15/19 1325 06/15/19 1400 Temp: 36.7 ?C (98.1 ?F) 36.4 ?C (97.5 ?F) 36.5 ?C (97.7 ?F) 36.4 ?C (97.5 ?F) 06/15/19 1315 06/15/19 1330 06/15/19 1345 06/15/19 1400 BP: 128/77 122/77 141/82 146/84 06/15/19 1325 06/15/19 1330 06/15/19 1345 06/15/19 1400 Pulse: 98 98 101 101 06/15/19 1325 06/15/19 1330 06/15/19 1345 06/15/19 1400 Resp: 17 19 16 15 06/15/19 1325 06/15/19 1330 06/15/19 1345 06/15/19 1400 SpO2: 97% 93% 95% 96% Validated Vital Signs: Yes POST ANES STATUS: No apparent anesthetic complications. The patient is appropriately hydrated with stable respiratory and cardiovascular status. Patient has safe and adequate airway control. The patient has appropriate pain relief and no significant post operative nausea or vomiting. The patient has achieved baseline mental status. Intra-Operative Events: No Significant Anesthesia Events Further assessment by Anesthesia Service: None Other Remarks: SIGNATURE: Eduarda Pierson MD PATIENT NAME: Tori Cantor DATE: June 15, 2019 TIME: 2:14 PM PAGER/CONTACT #: [phone] Normal [facility] ANES PREOPon 06-15-2019 ANES PREOP HNO ID: [id number] Author: Eduarda Pierson Service: Anesthesiology Author Type: Anesthesiologist Type: Anesthesia PreOp Filed: 06/15/2019 11:57 AM Note Text: ANESTHESIOLOGY DAY OF SURGERY NOTE SERVICE DATE: 06/15/2019 SERVICE TIME: 11:56 AM : 1975 Procedure(s) (LRB): DEBRIDEMENT SUBCUTANEOUS TISSUE FIRST 20 SQ CM OR LESS LOWER EXTREMITY (Left) Surgeon(s): Gareth Uriarte Estimated body mass index is 29.63 kg/m? as calculated from the following: Height as of this encounter: 175.3 cm (5' 9). Weight as of this encounter: 91 kg (200 lb 9.9 oz). Most recent hematocrit and potassium results: Hematocrit 27.3 06/15/2019 Potassium 4.1 06/15/2019 ANES DOS/PREOP NOTE: Vitals: 06/14/19 2213 06/15/19 0230 06/15/19 0820 06/15/19 1027 BP: 128/76 124/89 127/72 122/70 Pulse: 94 98 91 84 Resp: 18 18 16 18 Temp: 36.7 ?C (98.1 ?F) 36.6 ?C (97.9 ?F) 36.7 ?C (98.1 ?F) 36.4 ?C (97.5 ?F) TempSrc: Oral Oral Temporal Temporal Artery SpO2: 94% 95% 98% Weight: Height: ACTIVE PROBLEM LIST Uncontrolled type 1 diabetes mellitus mild nonproliferative retinopathy without macular edema ([facility]) Hypertension Gerd (Gastroesophageal Reflux Disease) Microalbuminuria History of Diabetic Gastroparesis Diabetic Polyneuropathy Associated With Type 1 Diabetes Mellitus (Hcc) Depression With Anxiety Charcot's Joint of Right Foot Hyperlipidemia Hep C W/O Coma, Chronic ([facility]) History of Drug Abuse in Remission ([facility]) Ivdu (Intravenous Drug User) Tobacco Abuse Left Ankle Joint Deformity Hyperglycemia Nicotine use disorder, F17.2 Closed Fracture of Left Ankle Sepsis ([facility]) 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 - Pancreatitis 08/2014 - Tobacco abuse 05/27/2019 - Trimalleolar fracture of left ankle PAST SURGICAL HISTORY Procedure Laterality Date - NONE FAMILY HISTORY Problem Relation Age of Onset - Hypertension Mother - Diabetes Mother - Stroke Mother - Heart Mother CHF - Cataract Mother - Hypertension Father - COPD Father - Emphysema Father Social History: Social History Tobacco Use - Smoking status: Current Every Day Smoker Packs/day: 1.00 Types: Cigarettes - Smokeless tobacco: Never Used Substance Use Topics - Alcohol use: Yes Comment: socially - Drug use: Yes Types: Cocaine, Amphetamines Comment: hist of cocaine and marajuana use, fentanyl No current facility-administered medications on file prior to encounter. Current Outpatient Medications on File Prior to Encounter Medication Sig - ibuprofen (MOTRIN) 400 mg tablet Take 400 mg by mouth every 6 hours as needed. - insulin glargine (LANTUS SOLOSTAR U-100 INSULIN) 100 unit/mL (3 mL) inpn Inject 24 Units subcutaneously twice daily. While at [facility] - levoFLOXacin (LEVAQUIN) 750 mg tablet Take 750 mg by mouth once daily. End date 06-23-19 - enoxaparin (LOVENOX) 40 mg/0.4 mL syrg Inject 40 mg subcutaneously every 24 hours. - oxyCODONE-acetaminophen (PERCOCET) 5-325 mg tablet Take 1 tablet by mouth every 6 hours as needed. - insulin detemir U-100 (LEVEMIR FLEXTOUCH U-100 INSULN) 100 unit/mL (3 mL) inpn injection Inject 30 Units subcutaneously twice daily. While at home - doxycycline monohydrate (AVIDOXY) 100 mg tablet Take 1 tablet by mouth twice daily for 14 days. (Patient taking differently: Take 100 mg by mouth twice daily. End date 06-23-19 ) - acetaminophen (TYLENOL) 325 mg tablet Take 2 tablets by mouth every 6 hours as needed. - insulin lispro (HUMALOG KWIKPEN INSULIN) 100 unit/mL inpn Inject 14 Units subcutaneously three times daily before meals. (Patient taking differently: Inject subcutaneously three times daily before meals. Sliding scale 100-150: 2 units 151-200: 4 units 201-250: 6 units 251-300: 8 units 301-350: 10 units 351-400: 12 units 401-450: 14 units <70 or >400 call ) - lisinopril (ZESTRIL, PRINIVIL) 10 mg tablet Take 1 tablet by mouth once daily for 15 days. - pantoprazole DR (PROTONIX) 40 mg tablet Take 40 mg by mouth once daily. - Lancets lancets Use as instructed - Insulin Dudley, Disposable, (BD ULTRAFINE III MINI PEN) 31 gauge x 3/16 ndle USE WITH INSULIN PENS 4TIMES DAILY - blood sugar diagnostic ([employer] ULTRA TEST) test strip CHECK BLOOD SUGARS 6 TIMES DAILY - DULoxetine (CYMBALTA) 30 mg capsule Take 1 capsule by mouth once daily. (Patient taking differently: Take 120 mg by mouth once daily. ) - pregabalin (LYRICA) 150 mg capsule Take 100 mg by mouth three times daily. - cyclobenzaprine (FLEXERIL) 5 mg tablet Take 5 mg by mouth every 8 hours as needed. Current Facility-Administered Medications Medication Dose Route Frequency Provider Last Rate Last Dose - [MAR Hold due to Transfer] dextrose 5% in NaCl 0.9% iv infusion 75 mL/hr INTRAVENOUS CONTINUOUS Salina Midha 75 mL/hr at 06/15/19 0743 75 mL/hr at 06/15/19 0743 - [MAR Hold due to Transfer] HYDROmorphone HCl 0.5-1 mg injection (DILAUDID) 0.5-1 mg INTRAVENOUS q 3 H PRN Kenia Holloway Scantling - [MAR Hold due to Transfer] insulin NPH human 26 Units injection pen (intermediate acting) (NovoLIN N, HumuLIN N) 26 Units SUBCUTANEOUS BID 8A/BEDTIME Salina Midha 26 Units at 06/15/19 0744 - [MAR Hold due to Transfer] insulin lispro 16 Units pen (rapid acting) (HumaLOG KWIKPEN) 16 Units SUBCUTANEOUS w MEALS Lucita Ciltea 16 Units at 06/14/19 1702 - [MAR Hold due to Transfer] polyethylene glycol 3350 17 g packet (MIRALAX, GLYCOLAX) 17 g ORAL DAILY Puneet Leonardo 17 g at 06/14/19 1805 - [MAR Hold due to Transfer] oxyCODONE IR 5-10 mg tab(s) (ROXICODONE) 5-10 mg ORAL q 3 H PRN Kenia K Scantling 10 mg at 06/15/19 0744 - [MAR Hold due to Transfer] senna-docusate 8.6-50 mg 2 tablet (SENNA-S) 2 tablet ORAL BID Kenia K Scantling 2 tablet at 06/14/192113 - [MAR Hold due to Transfer] pregabalin 100 mg cap(s) (LYRICA) 100 mg ORAL TID Kenia K Scantling 100 mg at 06/14/192113 - [MAR Hold due to Transfer] ceFAZolin iv piggyback 2 g in D5W (iso-osmotic) 100 mL (ANCEF) 2 g INTRAVENOUS q 8 HR Venancio A Abhishek 200 mL/hr at 06/15/19742 2 g at 06/15/19742 - [MAR Hold due to Transfer] perflutren lipid microspheres 1.1 mg/mL 1.3 mL injection (DEFINToovari) 1.3 mL INTRAVENOUS DIRECTED PRN Venancio A Abhishek - [MAR Hold due to Transfer] insulin lispro pen (rapid acting) (HumaLOG KWIKPEN) SUBCUTANEOUS w MEALS Venancio A Abhishek 3 Units at 06/15/19743 - [MAR Hold due to Transfer] DULoxetine 20 mg cap(s) (CYMBALTA) 20 mg ORAL BID Venancio A Abhishek 20 mg at 06/14/192112 - [MAR Hold due to Transfer] lisinopril 10 mg tab(s) (ZESTRIL, PRINIVIL) 10 mg ORAL DAILY Venancio A Abhishek 10 mg at 06/14/19833 - [MAR Hold due to Transfer] pantoprazole DR 40 mg tab(s) (PROTONIX) 40 mg ORAL DAILY Venancio A Abhishek 40 mg at 06/14/19833 - [MAR Hold due to Transfer] enoxaparin 40 mg injection (LOVENOX) 40 mg SUBCUTANEOUS DAILY Venancio A Abhishek 40 mg at 06/14/192113 - [MAR Hold due to Transfer] NaCl 0.9% 3-5 mL 3-5 mL INTRAVENOUS q 12 H Venancio A Abhishek 3 mL at 06/14/192113 - [MAR Hold due to Transfer] ondansetron 4 mg tab(s) (ZOFRAN) 4 mg ORAL q 6 H PRN Venancio A Abhishek Or - [MAR Hold due to Transfer] ondansetron (PF) 4 mg injection (ZOFRAN) 4 mg INTRAVENOUS q 6 H PRN Venancio A Abhishek - [MAR Hold due to Transfer] bisacodyl 10 mg suppository (DULCOLAX) 10 mg RECTAL DAILY PRN Venancio A Abhishek - [MAR Hold due to Transfer] dextrose 40 % 15 g 15 g ORAL PRN Venancio A Abhishek Or - [MAR Hold due to Transfer] glucagon 1 mg injection (GLUCAGEN) 1 mg INTRAMUSCULAR PRN Venancio A Abhishek Or - [MAR Hold due to Transfer] dextrose 50 % 12.5 g injection 12.5 g INTRAVENOUS PRN Venancio A Allergies: ALLERGIES No Known Allergies DOS EXAM: Adequate NPO Status: Yes Anesthetic Risks, Benefits, Alternatives, Personnel and Consent Discussed: Yes Patient agrees to proceed: Yes Previous Anesthesia: No history of adverse event Airway Assessment: MP 3; Neck ROM: Full ROM without neurologic symptoms; Airway Evaluation: Small Mouth Opening Symptoms of Sleep Apnea: Hypertension and Male gender Dentition: Edentulous Additional Physical Exam: Lungs: Patient health status unchanged since recent history and physical. See history and physical for exam findings. Cardiac: Patient health status unchanged since recent history and physical. See history and physical for exam findings. 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 I have reviewed the medical record and/or the pre-anesthesia evaluation, pertinent labs, and test results. Significant changes in the patient's condition since the History and Physical, not otherwise documented in primary service progress notes: No This contains updated information obtained within 48 hours of Surgery/Procedure. SIGNATURE: Eduarda Pierson MD PATIENT NAME: Tori Cantor DATE: June 15, 2019 TIME: 11:01 AM CSN: [id number] Normal [facility] Alk Phos Isoenzymeson 2018 Alk Phos Isoenzymes SEE BELOW Normal [facility] Comment on above: Result Comment: Laura line Phosphatase 299 H 38-113 U/L Alk Phos Bone % 34.3 10.7-68.3 % Bone Fraction 102.6 H 12.9-52.6 U/L Alk Phos Liver % 49.5 26.0-86.2 % Liver Fraction 148.0 H 16.0-69.3 U/L Alk Phos Intestine % 16.2 0.0-24.2 % Intestine Fraction 48.4 H 0.0-16.3 U/L Performing Laboratory: [id number] [place] [address] Performed By: #### G LMET #### [facility] [address] [address] BRIEF OP NOTon 06-15-2019 BRIEF OP NOT HNO ID: [id number] Author: Bryson Bocanegra Service: Orthopaedic Surgery Author Type: Resident Type: Brief Op Note Filed: 06/15/2019 1:32 PM Note Text: ----- Attestation signed by Gareth Uriarte at 06/16/2019 8:06 AM Agree with resident assessment and plan. ----- BRIEF OPERATIVE / PROCEDURE NOTE Surgery/Procedure Date: 06/15/19 Surgeon(s)/Proceduralist( s) and Innovation Manager(s): Dr. Gareth Uriarte, Attending, Primary Surgeon Dr. Bryson Bocanegra, Resident, Assisting Pre-Op/Pre-Procedure Diagnosis: Left ankle fracture/dislocation with cellulitis and myositis Post-Op/Post-Procedure Diagnosis: Same Procedure(s): Debridement of left leg and ankle wound Application of wound vac Anesthesia: General Findings: Large area of necrotic skin, fascia, and muscle Estimated Blood Loss: 500 mls Fluids: 1000cc Specimens: None Special Medications: Ancef 2g Drains: None Complications: None POST OP PLAN: INITIAL POST-OP MANAGEMENT PLAN: Pain Medications: Per pain management DVT prophylaxis: per primary, ok for dvt chemoppx from orthopaedic standpoint Perioperative Antibiotics: per primary, Ancef 2g Q8H Diet Plan: Diet carbohydrate controlled Mobilization, Range of Motion, and Weight bearing: NWB LLE, Ex fix in place Dressing Management: Pin site care: xeroform and kerlix daily changes Est. Length Of Stay / Discharge Destination: Per primary Any Other Issues? Sepsis, hyponatremia, Diabetes, Hepatitis C, IDDM Consults:Endocrinology, Pain management, ID, nephrology, CV, PT, OT, care management SIGNATURE: rByson Bocanegra MD PATIENT NAME: Tori Cantor DATE: 06/15/19 TIME: 1:25 PM PAGER/CONTACT #: [phone] [facility] CASE MANAGEMon 06-15-2019 CASE MANAGEM HNO ID: [id number] Author: Muna (Rn) MATT Cordero Service: Care Management Author Type: Registered Nurse Type: Care Mgt Progress Note Filed: 06/15/2019 9:28 AM Note Text: CARE MANAGEMENT PROGRESS NOTE SERVICE DATE: 06/15/2019 SERVICE TIME: 926 LOS: 6 days Needs Prior to Discharge: Precertification;Discharg e Transportation Met with patient, possible return to the OR today. Plan remains to return to the [place] [facility] [place], precert has been started. SIGNATURE: Muna Cordero RN PATIENT NAME: Tori Cantor DATE: June 15, 2019 TIME: 9:27 AM PAGER/CONTACT #: [phone] [facility] CONSULT PROGon 06-15-2019 CONSULT PROG HNO ID: [id number] Author: Salina Geronimo Service: Endocrinology Author Type: Physician Type: Consult Progress Note Filed: 06/15/2019 10:29 AM Note Text: ENDOCRINOLOGY CONSULT PROGRESS NOTE SERVICE DATE: 06/15/2019 SERVICE TIME: 10:15 AM Subjective INTERVAL HPI: Following for DM type 1. Adm with left ankle fracture after a fall, has left leg infection, cellulitis. Notes and orders reviewed. Patient refused insulin 06/14 am; was NPO for JOANNA; agreed to take NPH 26 units and humalog 10 units x1; readjusted doses as he is so afraid of hypoglycemia and will refuse to take his insulin! NPO today, for OR, seen in pre-surgery now. Diet: DIET NPO p.o intake good, following diet. Activity:Bedrest Review of Systems: PAIN ASSESSMENT: c/o left ankle/leg pain, severe GENERAL: has fatigue, malaise, no fever/chills RESPIRATORY: Negative for cough, hemoptysis, wheezing, COPD, dyspnea or shortness of breath CARDIOVASCULAR: Negative for chest pain, leg swelling, hypertension, CHF or palpitations GI: No nausea, vomiting, or diarrhea ENDOCRINE: Negative for cold or heat intolerance, polyuria or polydipsia. The remainder of the review of systems is negative. Current Facility-Administered Medications Medication Dose Route Frequency - lisinopril 10 mg tab(s) (ZESTRIL, PRINIVIL) 10 mg ORAL DAILY - pantoprazole DR 40 mg tab(s) (PROTONIX) 40 mg ORAL DAILY - enoxaparin 40 mg injection (LOVENOX) 40 mg SUBCUTANEOUS DAILY - NaCl 0.9% 3-5 mL 3-5 mL INTRAVENOUS q 12 H - ondansetron 4 mg tab(s) (ZOFRAN) 4 mg ORAL q 6 H PRN Or - ondansetron (PF) 4 mg injection (ZOFRAN) 4 mg INTRAVENOUS q 6 H PRN - bisacodyl 10 mg suppository (DULCOLAX) 10 mg RECTAL DAILY PRN - dextrose 40 % 15 g 15 g ORAL PRN Or - glucagon 1 mg injection (GLUCAGEN) 1 mg INTRAMUSCULAR PRN Or - dextrose 50 % 12.5 g injection 12.5 g INTRAVENOUS PRN - perflutren lipid microspheres 1.1 mg/mL 1.3 mL injection (DEFINITY) 1.3 mL INTRAVENOUS DIRECTED PRN - insulin lispro pen (rapid acting) (HumaLOG KWIKPEN) SUBCUTANEOUS w MEALS - DULoxetine 20 mg cap(s) (CYMBALTA) 20 mg ORAL BID - ceFAZolin iv piggyback 2 g in D5W (iso-osmotic) 100 mL (ANCEF) 2 g INTRAVENOUS q 8 HR - iv contrast (radiology procedure) INTRAVENOUS DIRECTED PRN - insulin NPH human 26 Units injection pen (intermediate acting) (NovoLIN N, HumuLIN N) 26 Units SUBCUTANEOUS BID 8A/BEDTIME - insulin lispro 16 Units pen (rapid acting) (HumaLOG KWIKPEN) 16 Units SUBCUTANEOUS w MEALS - polyethylene glycol 3350 17 g packet (MIRALAX, GLYCOLAX) 17 g ORAL DAILY - HYDROmorphone HCl 1 mg injection (DILAUDID) 1 mg INTRAVENOUS DAILY PRN - oxyCODONE IR 5-10 mg tab(s) (ROXICODONE) 5-10 mg ORAL q 3 H PRN - senna-docusate 8.6-50 mg 2 tablet (SENNA-S) 2 tablet ORAL BID - pregabalin 100 mg cap(s) (LYRICA) 100 mg ORAL TID Objective PHYSICAL EXAM: GENERAL: awake, alert; no distress SKIN: no rash/ bruising OROPHARYNX: moist LUNGS: clear CVS: RRR EXTREMITIES: left foot in a bandage and external fixation frame; right foot charcot's deformity, no ulcers BP 124/89 Pulse 98 Temp (Src) 97.9 (Oral) Resp 18 Ht 5' 9 (1.75m) Wt 200 lb 9.9 oz (91.0kg) SpO2 95% BMI 29.61 kg/(m2). O2 Therapy: Room Air DATA: Diagnostic tests reviewed for today's visit: Most recent labs and imaging results. Last 24 hr BS reviewed. Recent Labs 06/15/19 0208 06/14/19 2054 06/14/19 1618 06/14/19 1148 06/14/19 0628 06/14/19 0107 06/13/19 2121 06/13/19 0221 GLUC 145* -- -- -- -- 235* -- -- 281* GLUCOSEMETER -- 214* 308* 376* 326* -- 168* < > -- < > = values in this interval not displayed. 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 Home Rx is Levemir 25 units bid and Novolog 14 units tid with SSI. Was on 70/30 from 03/09 till 05/18 (while incarcerated) Saw Endo in [place] in September,; due for appt? Started on lantus 25 units bid and Humalog 20 units tid here. BS still very high, increased Lantus to 30 units bid and Humalog to 24 unist tid changed to NPH 30 units bid and humalog 30 units qac tid pluc sorrection.Patient refused insulin 06/14 am; was NPO for JOANNA; then agreed to take NPH 26 units and humalog 10 units x1; readjusted doses as he is so afraid of hypoglycemia and refuses to take insulin; decreased NPH to bid and humalog 16 units qac tid plus correction on 06/14. NPO today, ok to give NPH this am and Dextrose (D5NS at 75 ml/hr) IV while NPO. Cellulitis/abscess left ankle, s/p debridement and external fixation of ankle fracture on 06/10. JOANNA normal. For OR today. Hyponatremia, renal on board, evidence of SIADH, Na 133(130)(128)(124)(126) IVDU (intravenous drug user) POA: Yes Assessment AND Plan: hx Closed fracture of left ankle POA: Yes Assessment AND Plan: trimalleolar, 3 weeks ago after a fall SIGNATURE: Salina Geronimo MD PATIENT NAME: Tori Cantor DATE: June 15, 2019 TIME: 10:29 AM PAGER: [phone] Normal [facility] Comprehensive Panelon 2018 ALP [Catalytic activity/Vol] 203 U/L High 45-117 [facility] Comment on above: Performed By: #### G LMET #### [facility] [address] [place], [place] [address] Bilirubin [Mass/Vol] 0.5 mg/dL Normal 0.2-1.0 [facility] Comment on above: Performed By: #### G LMET #### [facility] [address] [place], [place] [address] Protein [Mass/Vol] 6.2 g/dL Low 6.4-8.2 [facility] Comment on above: Performed By: #### G LMET #### [facility] [address] [place], [place] [address] AST [Catalytic activity/Vol] 8 U/L Low 15-37 [facility] Comment on above: Performed By: #### G LMET #### [facility] [address] [place], [place] [address] Creatinine [Mass/Vol] 0.68 mg/dL Normal 0.67-1.17 [facility] Comment on above: Performed By: #### G LMET #### [facility] [address] [place], [place] [address] ALT [Catalytic activity/Vol] 13 U/L Normal 12-78 [facility] Comment on above: Performed By: #### G LMET #### [facility] [address] [place], [place] [address] Urea nitrogen [Mass/Vol] 18 mg/dL Normal 7-18 [facility] Comment on above: Performed By: #### G LMET #### [facility] [address] [place], [place] [address] Albumin [Mass/Vol] 1.5 g/dL Low 3.4-5.0 [facility] Comment on above: Performed By: #### G LMET #### [facility] [address] [place], [place] [address] Anion gap [Moles/Vol] 8 mmol/L Normal 8-16 [facility] Comment on above: Performed By: #### G LMET #### [facility] [address] [place], [place] [address] Calcium [Mass/Vol] 8.4 mg/dL Low 8.5-10.1 [facility] Comment on above: Performed By: #### G LMET #### [facility] [address] [place], [place] [address] CO2 [Moles/Vol] 26 mmol/L Normal 21-32 [facility] Comment on above: Performed By: #### G LMET #### [facility] [address] [place], [place] [address] Glucose [Mass/Vol] 145 mg/dL High 70-99 [facility] Comment on above: Performed By: #### G LMET #### [facility] [address] [place], [place] [address] Chloride [Moles/Vol] 103 mmol/L Normal 98-107 [facility] Comment on above: Performed By: #### G LMET #### [facility] [address] [place], [place] [address] Potassium [Moles/Vol] 4.1 mmol/L Normal 3.5-5.1 [facility] Comment on above: Performed By: #### G LMET #### [facility] [address] [address] Sodium [Moles/Vol] 133 mmol/L Low 136-145 [facility] Comment on above: Performed By: #### G LMET #### [facility] [address] [address] Hemogramon 06-15-2019 Erythrocyte distribution width (RBC) [Ratio] 14.2 % Normal 11.6-14.4 [facility] Comment on above: Performed By: #### G LMET #### [facility] [address] [address] Hematocrit (Bld) [Volume fraction] 27.3 % Low 40.1-51.0 [facility] Comment on above: Performed By: #### G LMET #### [facility] [address] [address] Hemoglobin (Bld) [Mass/Vol] 9.0 g/dL Low 13.7-17.5 [facility] Comment on above: Performed By: #### G LMET #### [facility] [address] [address] MCH (RBC) [Entitic mass] 28.8 pg Normal 25.7-32.2 [facility] Comment on above: Performed By: #### G LMET #### [facility] [address] [address] MCHC (RBC) [Mass/Vol] 33.0 % Normal 32.3-36.5 [facility] Comment on above: Performed By: #### G LMET #### [facility] [address] [address] MCV (RBC) [Entitic vol] 87.2 fL Normal 83.2-95.6 [facility] Comment on above: Performed By: #### G LMET #### [facility] [address] [address] Platelet mean volume (Bld) [Entitic vol] 10.0 fL Normal 8.7-12.0 [facility] Comment on above: Performed By: #### G LMET #### [facility] [address] [phone] Platelets (Bld) [#/Vol] 429 thou/cmm High 141-365 [facility] Comment on above: Performed By: #### G LMET #### [facility] [address] [address] RBC (Bld) [#/Vol] 3.13 mil/cmm Low 4.63-6.08 [facility] Comment on above: Performed By: #### G LMET #### [facility] [address] [address] RDW SD 44.4 fl Normal 36.1-45.8 [facility] Comment on above: Performed By: #### G LMET #### [facility] [address] [phone] WBC (Bld) [#/Vol] 22.32 thou/cmm High 4.23-9.07 [facility] Comment on above: Performed By: #### G LMET #### [facility] [address] [address] OPERATIVE NOon 06-15-2019 OPERATIVE NO HNO ID: [id number] Author: Gareth Uriarte Service: Orthopaedic Surgery Author Type: Physician Type: Operative Report Filed: 06/16/2019 8:05 AM Note Text: [facility] - Operative Report TORI CANTOR Lamont : 1975 AGE: 44. SEX: M PATIENT TYPE: I HOSP SVC: INTM LOCATION: [id number] ATTENDING PHYSICIAN: PUNEET LEONARDO [facility] NUMBER: [id number] DATE OF SURGERY/PROCEDURE: 06/15/2019 INCISION/PROCEDURE START TIME: 12:42 PM INCISION CLOSE/PROCEDURE END TIME: 1:10 PM PREOPERATIVE DIAGNOSIS: Abscess with deep infection of left lower extremity. POSTOPERATIVE DIAGNOSIS: Abscess with deep infection of left lower extremity. SURGEON: Gareth Uriarte MD SOFTWARE SUPPORT TECHNICIAN: Shiv Trimble MD. SURGERY/PROCEDURE: 1. Irrigation and debridement of skin and subcutaneous tissue, fascia, muscle, and bone, 25 x 10 cm left lower extremity. 2. Application of wound VAC, 25 x 10 cm left lower extremity. ANESTHESIA: General endotracheal. ESTIMATED BLOOD LOSS: 100 mL. BLOOD PRODUCTS: No blood products given. DRAINS: Wound VAC was placed. SPECIMENS: No specimens. INTRAOPERATIVE FINDINGS: Consistent with preop diagnosis. COMPLICATIONS: There were no complications. ANTIBIOTICS: Patient is on scheduled Ancef. No additional antibiotics were necessary. DISPOSITION: Patient was returned to the PACU in stable condition. BRIEF HISTORY: Mr. Cantor is a gentleman with multiple comorbidities including uncontrolled diabetes. He sustained an ankle fracture which was initially cared for by my partner. An external fixator was placed with debridement of blisters. This was secondary to increasing white count and infection in his left lower extremity. Initially, his white blood cell count was improving. His white blood cell count then went back into the 30s. CT scan was performed, which showed gas in the soft tissues. It was recommended he undergo irrigation and debridement. I discussed with the patient. I discussed the risks, benefits, complications, and alternatives. I answered his questions and he wished to proceed. DESCRIPTION OF PROCEDURE: Informed consent was obtained. Patient was properly identified in the presurgical area and brought back to the operating room. He was placed on the operating room table in the supine position. Anesthesia was administered followed by intubation. At all times, head, neck, and airway controlled by Anesthesia Staff. Left lower extremity than had the wound VAC removed. There were 3 large eschars on the anterior and medial aspect of the leg. We then prepped and draped in sterile orthopedic fashion. Time-out was performed per [facility] protocol. Patient is on scheduled Ancef. No additional antibiotics were necessary. I then removed the eschar from all 3 areas with knife. This brought us down to liquified tissues. These were debrided. We entered the deep space behind the tibia on all 3 wounds getting to the fibula. The skin and subcutaneous tissue, fascia, muscle, and the fracture site were debrided distally. This was done with curettes and rongeurs. I then irrigated with 3 L of sterile saline using cystoscopy tubing. I felt that the places that we had opened were decompressed. I then placed a wound VAC measuring 25 x 10 cm over the entirety of the open wounds. This was then sealed and hooked to the VAC machine. Patient was subsequently awakened from anesthesia and taken to recovery room in stable condition. POSTOPERATIVE PLAN AND PROGNOSIS: We will monitor his white count. He will maintain on antibiotics. He has a significant chance of losing his leg due to this infection and uncontrolled diabetes. Gareth Uriarte MD WK:[id number] /[id number] Normal [facility] PROGRESSon 06-15-2019 PROGRESS HNO ID: [id number] Author: Puneet Leonardo Service: Hospital Medicine Author Type: Physician Type: Progress Notes Filed: 06/15/2019 6:02 PM Note Text: DEPARTMENT OF HOSPITAL MEDICINE PROGRESS NOTE SERVICE DATE: 06/15/2019 SERVICE TIME: 3:34 PM Hospital Medicine/Primary Attending: Puneet Leonardo MD Subjective CHIEF COMPLAINT: Sepsis INTERVAL HPI: seen s/p Debridement of left leg and ankle wound Application of wound vac in OR, pain adequately controlled Complains of scrotal swelling and tenderness, Current Facility-Administered Medications Medication Dose Route Frequency - lisinopril 10 mg tab(s) (ZESTRIL, PRINIVIL) 10 mg ORAL DAILY - pantoprazole DR 40 mg tab(s) (PROTONIX) 40 mg ORAL DAILY - enoxaparin 40 mg injection (LOVENOX) 40 mg SUBCUTANEOUS DAILY - NaCl 0.9% 3-5 mL 3-5 mL INTRAVENOUS q 12 H - ondansetron 4 mg tab(s) (ZOFRAN) 4 mg ORAL q 6 H PRN Or - ondansetron (PF) 4 mg injection (ZOFRAN) 4 mg INTRAVENOUS q 6 H PRN - bisacodyl 10 mg suppository (DULCOLAX) 10 mg RECTAL DAILY PRN - dextrose 40 % 15 g 15 g ORAL PRN Or - glucagon 1 mg injection (GLUCAGEN) 1 mg INTRAMUSCULAR PRN Or - dextrose 50 % 12.5 g injection 12.5 g INTRAVENOUS PRN - perflutren lipid microspheres 1.1 mg/mL 1.3 mL injection (DEFINITY) 1.3 mL INTRAVENOUS DIRECTED PRN - insulin lispro pen (rapid acting) (HumaLOG KWIKPEN) SUBCUTANEOUS w MEALS - DULoxetine 20 mg cap(s) (CYMBALTA) 20 mg ORAL BID - ceFAZolin iv piggyback 2 g in D5W (iso-osmotic) 100 mL (ANCEF) 2 g INTRAVENOUS q 8 HR - insulin NPH human 26 Units injection pen (intermediate acting) (NovoLIN N, HumuLIN N) 26 Units SUBCUTANEOUS BID 8A/BEDTIME - insulin lispro 16 Units pen (rapid acting) (HumaLOG KWIKPEN) 16 Units SUBCUTANEOUS w MEALS - polyethylene glycol 3350 17 g packet (MIRALAX, GLYCOLAX) 17 g ORAL DAILY - oxyCODONE IR 5-10 mg tab(s) (ROXICODONE) 5-10 mg ORAL q 3 H PRN - senna-docusate 8.6-50 mg 2 tablet (SENNA-S) 2 tablet ORAL BID - pregabalin 100 mg cap(s) (LYRICA) 100 mg ORAL TID - dextrose 5% in NaCl 0.9% iv infusion 75 mL/hr INTRAVENOUS CONTINUOUS - HYDROmorphone HCl 0.5-1 mg injection (DILAUDID) 0.5-1 mg INTRAVENOUS q 3 H PRN - NaCl 0.9% iv infusion 100 mL/hr INTRAVENOUS CONTINUOUS Objective PHYSICAL EXAM: BP 147/89 Pulse 102 Temp (Src) 97.5 (Temporal) Resp 18 Ht 5' 9 (1.75m) Wt 200 lb 9.9 oz (91.0kg) SpO2 98% BMI 29.61 kg/(m2). O2 Therapy: Nasal Cannula, Liters: 3 GENERAL: Alert, no distress, cooperative SKIN: Skin color, texture, turgor normal. No rashes or lesions. EYES: PERRLA, EOMI OROPHARYNX: Negative NECK: No jugulovenous distention, LUNGS: CTAB, no wheeze or crackles CARDIAC: Normal S1 and S2; no rubs, murmurs, or gallops ABDOMEN: Abdomen soft, non-tender, BS normal, No masses or organomegaly Perineum: +scrotal swelling with no erythema/warmth, drainage EXTREMITIES: L lower leg with external fixation device, + wound vac, + tenderness of LLE, NEURO: Cranial nerves III-XII intact Lines, Drains, and Airways Line Peripheral 06/09/19 1545 Left Wrist 20 Gauge 5 days Orthopaedic Device Immobilizer External Fixator -- days DATA: Diagnostic tests reviewed for today's visit: Most recent labs and imaging results. Assessment/Plan Active Problems: #Sepsis 2/2 LLE cellulitis/abscess and S. Aureus bacteremia -in setting of L trimalleolar ankle fracture -s/p IANDD and placement of external fixator?06/10, debridement of left leg and ankle 06/15 - ortho and ID input appreciated -continue IV antibiotics per ID ? #MSSA bacteremia -TTE and JOANNA without evidence of endocarditis -continue IV ancef per ID -monitor cultures #Hyponatremia- nephrology following ? #Leukocytosis- improving, 2/2 bacteremia and cellulitis/abscess as above. Monitor vitals. Daily CBC. ? #Hyperbilirubinemia: resolved # elevated Alk phos: likely from bone per GI elevated LFTs -possible 2/2 sepsis? Will trend liver enzymes -check acute hepatitis panel - US RUQ?showed hepatomegaly # Hypoalbuminemia: ? 2/2 malnutrition vs liver disease, no proteinuria With secondary scrotal swelling - give 25 g albumin x1 - nutrition consult ? # + Hepatitis C antibody with hepatosplenomegaly: GI on consult, needs viral RNA load checked as OP, f/u with GI as outpatient ? #IDDM, uncontrolled, hyperglycemia- ?Discussed importance of compliance. -Endocrine on consult -Lantus and lispro adjusted per Endocrine. Continue SSIC ? #HTN-continue home lisinopril ? # Medical noncompliance ? # IVDA: last use 2 months ago after getting out of halfway Resolved Problems: * No resolved hospital problems. * Medication and Non-Pharmacologic VTE Prophylaxis/Anticoagulant s Anticoagulant AND Antiplatelet Medications (From admission, onward) Start Dose Route Frequency Ordered Stop 06/10/192099 enoxaparin 40 mg injection (LOVENOX) (Medical Risk Categories) 40 mg SUBCUTANEOUS DAILY 06/09/192049 -- 06/09/192099 vte non-pharmacologic prophylaxis - none indicated (de,oh) 06/09/192099 activity - mobilize patient (de,wy) VTE Prophylaxis: VTE prophylaxis appropriate Disposition: Extended Care Facility Plan of care discussed with: Provider, RN, Patient SIGNATURE: Puneet Leonardo MD PATIENT NAME: Tori Cantor DATE: June 15, 2019 TIME: 3:34 PM PAGER: [phone] Normal [facility] PROGRESS HNO ID: [id number] Author: Kenia Calvillo Service: Pain Management Author Type: Physician Type: Progress Notes Filed: 06/15/2019 9:23 AM Note Text: Name: TORI CANTOR Age: [age] year old PAIN MANAGEMENT: s/p IANDD left tibia wounds; external fixation LLE, left trimalleolar ankle fracture/dislocation 05/27; Right foot Charcot deformity, DM neuropathy, IVDA Pain Description: Patient feels better; ongoing left leg and calf pain. Throbbing, sharp stabbing as well. Chronic bilateral lower extremity neuropathy 24H Pain Regimen: Cymbalta 20mg po bid Dilaudid 0.5mg IV x 2, 1mg x 1 Oxycodone 10 mg ?2 Lyrica 150mg po x2- dose change to 100 mg Interval HPI; on ancef for MSSA. 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 Patient had been noncompliant with nonweightbearing restrictions. He also was seen in the ED 06/08 after removing his own splint; patient left AMA. Patient is a IV vancomycin. He underwent irrigation and debridement on 06/10 the wound VAC and external fixator placement. Blood cultures positive for MSSA bacteremia. JOANNA negative for infective endocarditis. CT left tibia and fibula showing concern for osteomyelitis, possible calf abscess and gas forming infection. Ongoing leukocytosis. Patient on Ancef Prior to admission patient was taking Lyrica 100 mg by mouth 3 times a day. He smokes 1 pack per day. He denies alcohol. He does use marijuana infrequently. He states he had done street drugs for 30 years and then he last used a while ago. He has a history of IV cocaine and methamphetamine. He also admits to history of frequent IV fentanyl use. 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 06/01/2019 2 06/01/2019 Pregabalin 150 MG Capsule 30.00 15 Pe Ailyn [id number] Pha ([id number]) 4 2.01 [facility] 05/31/2019 2 05/31/2019 Oxycodone-Acetaminophen 5-325 6.00 1 Da Mil [id number] Pha ([id number]) [address] [facility] 01/31/2019 1 12/07/2018 Lyrica 150 MG Capsule 90.00 30 Ch Pet [id number] [facility] ([id number]) 1 2.88 LME [place] 12/07/2018 1 12/07/2018 Lyrica 150 MG Capsule 90.00 30 Ch Pet [id number] [facility] ([id number]) 0 2.88 [place]ME [place] 10/05/2018 1 10/04/2018 Hydrocodone-Acetamin 5-325 MG 18.00 3 Ju And [id number] [facility] ([id number]) 0 30.00 [place]ME [place] 03/03/2018 1 03/03/2018 Lyrica 150 MG Capsule 90.00 30 Ch Pet [id number] [facility] ([id number]) 0 2.88 [place]ME [place] 10/28/2017 1 08/25/2017 Lyrica 150 MG Capsule 90.00 30 Ch Pet [id number] [facility] ([id number]) 1 2.88 LME [place] 09/11/2017 1 08/25/2017 Lyrica 150 MG Capsule 90.00 30 Ch Pet [id number] [facility] ([id number]) 0 2.88 [place]ME [place] 07/04/2017 1 01/14/2017 Lyrica 150 MG Capsule 81.00 27 Ch Pet [id number] [facility] ([id number]) 2 2.88 LME Comm Ins [place] Current Facility-Administered Medications Medication Dose Route Frequency Provider Last Rate Last Dose - dextrose 5% in NaCl 0.9% iv infusion 75 mL/hr INTRAVENOUS CONTINUOUS Salina Midha 75 mL/hr at 06/15/19 0743 75 mL/hr at 06/15/19 0743 - HYDROmorphone HCl 0.5-1 mg injection (DILAUDID) 0.5-1 mg INTRAVENOUS q 3 H PRN Kenia K Scantling - insulin NPH human 26 Units injection pen (intermediate acting) (NovoLIN N, HumuLIN N) 26 Units SUBCUTANEOUS BID 8A/BEDTIME Salina Midha 26 Units at 06/15/19 0744 - insulin lispro 16 Units pen (rapid acting) (HumaLOG KWIKPEN) 16 Units SUBCUTANEOUS w MEALS Lucita Ciltea 16 Units at 06/14/19 1702 - polyethylene glycol 3350 17 g packet (MIRALAX, GLYCOLAX) 17 g ORAL DAILY Puneet D Walker 17 g at 06/14/19 180 - oxyCODONE IR 5-10 mg tab(s) (ROXICODONE) 5-10 mg ORAL q 3 H PRN Kenia K Scantling 10 mg at 06/15/19743 - senna-docusate 8.6-50 mg 2 tablet (SENNA-S) 2 tablet ORAL BID Kenia K Scantling 2 tablet at 06/14/192113 - pregabalin 100 mg cap(s) (LYRICA) 100 mg ORAL TID Kenia K Scantling 100 mg at 06/14/192113 - ceFAZolin iv piggyback 2 g in D5W (iso-osmotic) 100 mL (ANCEF) 2 g INTRAVENOUS q 8 HR Venancio A Abhishek 200 mL/hr at 06/15/19 0743 2 g at 06/15/19 07 - perflutren lipid microspheres 1.1 mg/mL 1.3 mL injection (DEFINITY) 1.3 mL INTRAVENOUS DIRECTED PRN Venancio A Abhishek - insulin lispro pen (rapid acting) (HumaLOG KWIKPEN) SUBCUTANEOUS w MEALS Venancio A Abhishek 3 Units at 06/15/1944 - DULoxetine 20 mg cap(s) (CYMBALTA) 20 mg ORAL BID Venancio A Abhishek 20 mg at 06/14/192112 - lisinopril 10 mg tab(s) (ZESTRIL, PRINIVIL) 10 mg ORAL DAILY Venancio A Abhishek 10 mg at 06/14/19 08 - pantoprazole DR 40 mg tab(s) (PROTONIX) 40 mg ORAL DAILY Venancio A Abhishek 40 mg at 06/14/19833 - enoxaparin 40 mg injection (LOVENOX) 40 mg SUBCUTANEOUS DAILY Venancio A Abhishek 40 mg at 06/14/192113 - NaCl 0.9% 3-5 mL 3-5 mL INTRAVENOUS q 12 H Venancio A Abhishek 3 mL at 06/14/192113 - ondansetron 4 mg tab(s) (ZOFRAN) 4 mg ORAL q 6 H PRN Venancio A Abhishek Or - ondansetron (PF) 4 mg injection (ZOFRAN) 4 mg INTRAVENOUS q 6 H PRN Venancio A Abhishek - bisacodyl 10 mg suppository (DULCOLAX) 10 mg RECTAL DAILY PRN Venancio A Abhishek - dextrose 40 % 15 g 15 g ORAL PRN Venancio A Abhishek Or - glucagon 1 mg injection (GLUCAGEN) 1 mg INTRAMUSCULAR PRN Venancio A Abhishek Or - dextrose 50 % 12.5 g injection 12.5 g INTRAVENOUS PRN Venancio A Abhishek ibuprofen (MOTRIN) 400 mg tablet, Take 400 mg by mouth every 6 hours as needed., Disp: , Rfl: insulin glargine (LANTUS SOLOSTAR U-100 INSULIN) 100 unit/mL (3 mL) inpn, Inject 24 Units subcutaneously twice daily. While at [facility] , Disp: , Rfl: levoFLOXacin (LEVAQUIN) 750 mg tablet, Take 750 mg by mouth once daily. End date 06-23-19, Disp: , Rfl: enoxaparin (LOVENOX) 40 mg/0.4 mL syrg, Inject 40 mg subcutaneously every 24 hours., Disp: , Rfl: oxyCODONE-acetaminophen (PERCOCET) 5-325 mg tablet, Take 1 tablet by mouth every 6 hours as needed., Disp: , Rfl: insulin detemir U-100 (LEVEMIR FLEXTOUCH U-100 INSULN) 100 unit/mL (3 mL) inpn injection, Inject 30 Units subcutaneously twice daily. While at home, Disp: , Rfl: doxycycline monohydrate (AVIDOXY) 100 mg tablet, Take 1 tablet by mouth twice daily for 14 days. (Patient taking differently: Take 100 mg by mouth twice daily. End date 06-23-19 ), Disp: 28 tablet, Rfl: 0 acetaminophen (TYLENOL) 325 mg tablet, Take 2 tablets by mouth every 6 hours as needed., Disp: , Rfl: insulin lispro (HUMALOG KWIKPEN INSULIN) 100 unit/mL inpn, Inject 14 Units subcutaneously three times daily before meals. (Patient taking differently: Inject subcutaneously three times daily before meals. Sliding scale 100-150: 2 units 151-200: 4 units 201-250: 6 units 251-300: 8 units 301-350: 10 units 351-400: 12 units 401-450: 14 units <70 or >400 call MD ), Disp: , Rfl: lisinopril (ZESTRIL, PRINIVIL) 10 mg tablet, Take 1 tablet by mouth once daily for 15 days., Disp: 15 tablet, Rfl: 0, 05/26/[address] (PROTONIX) 40 mg tablet, Take 40 mg by mouth once daily. , Disp: , Rfl: , 05/26/2019 Lancets lancets, Use as instructed, Disp: 100 Each, Rfl: 11, Taking Insulin Dudley, Disposable, (BD ULTRAFINE III MINI PEN) 31 gauge x 3/16 ndle, USE WITH INSULIN PENS 4TIMES DAILY, Disp: 400 Each, Rfl: 3, Taking blood sugar diagnostic (ONETOUCH ULTRA TEST) test strip, CHECK BLOOD SUGARS 6 TIMES DAILY, Disp: 200 Strip, Rfl: 3, Taking DULoxetine (CYMBALTA) 30 mg capsule, Take 1 capsule by mouth once daily. (Patient taking differently: Take 120 mg by mouth once daily. ), Disp: , Rfl: 0, 05/25/2019 pregabalin (LYRICA) 150 mg capsule, Take 100 mg by mouth three times daily. , Disp: , Rfl: , Taking cyclobenzaprine (FLEXERIL) 5 mg tablet, Take 5 mg by mouth every 8 hours as needed., Disp: , Rfl: Social History Tobacco Use - Smoking status: Current Every Day Smoker Packs/day: 1.00 Types: Cigarettes - Smokeless tobacco: Never Used Substance Use Topics - Alcohol use: Yes Comment: socially - Drug use: Yes Types: Cocaine, Amphetamines Comment: hist of cocaine and marajuana use, fentanyl FAMILY HISTORY Problem Relation Age of Onset - Hypertension Mother - Diabetes Mother - Stroke Mother - Heart Mother CHF - Cataract Mother - Hypertension Father - COPD Father - Emphysema Father PAST SURGICAL HISTORY Procedure Laterality Date - NONE ROS: All of the following reviewed and negative except as noted below: GENERAL: no fever, chills, sweats, weight loss, fatigue, generalized weakness HEENT: no headache, vision changes, eye discomfort, hearing change, ear discomfort, sinus pain, nasal discharge or congestion, oral lesions, soreness, dental problem NECK: no adenopathy, discomfort, change in ROM CHEST: no shortness of breath, dyspnea on exertion, wheezing, cough, sputum production or chest pain HEART: no chest pain, palpitations, syncope ABDOMEN: no nausea, vomiting, constipation, diarrhea, abdominal pain : no dysuria, urgency, frequency, history of stones, incontinence NEURO: no confusion or alteration in consciousness, slurred speech, seizure, focal weakness EXTREMITIES: See history of present illness HEME: no new adenopathy, bruises, petechiae PSYCH: no depression, anxiety, agitation PAIN PSYCHIATRIC EXAM: GENERAL: alert, oriented to person, place, time JUDGMENT AND INSIGHT: intact APPEARANCE: neatly groomed DEMEANOR: coooperative, not hostile, mistrustful, preoccupied, or demanding ACTIVITY: normal, not hyperactive or hypoactive, no tremors, tics EYE CONTACT: normal SPEECH: normal, rate, volume, articulation, coherence, spontaneity MOOD: normal, without overt sadness, grief, anxiety, appropriate to situation IDEATION: normal and without suicidal or homicidal ideation MEMORY: intact PHYSICAL EXAMINATION: GENERAL: well nourished and developed; no acute distress; alert and oriented x 3; intact judgement and insight HEENT: no evidence of trauma; cranial nerves intact; eyes clear EOMI; no hearing deficits apparent; nasal passages unremarkable; throat and mucous membranes clear NECK: supple without lymphadenopathy; no JVD; no thyromegaly CHEST: clear bilaterally to auscultation; normal chest movement; no rales or rhonchi HEART: regular rate and rhythm, normal S1 and S2, no murmurs, clicks, rubs, or gallops ABDOMEN: soft; nondistended; bowel sounds present; no hepatomegaly; no splenomegaly; no tenderness EXTREMITIES: no evidence of clubbing; no cyanosis; left leg with wound VAC; intact external fixator 1+ edema NEURO: cranial nerves intact; no focal deficits; no confusion; no tremor; sensorium normal SKIN: no decubitus lesions HEME: no bruising; no adenopathy PSYCH: no evidence of depression; no anxiety; no agitation; no apparent hallucinations BP 127/72 Pulse 91 Temp 36.7 ?C (98.1 ?F) (Temporal) Resp 16 Ht 175.3 cm (5' 9) Wt 91 kg (200 lb 9.9 oz) SpO2 95% BMI 29.63 kg/m? BMI 29.63 kg/(m2) Date 06/14/19699 - [birth year]1959 Shift 7987-4170 3806-1000 7964-7348 24 Hour Total INTAKE Shift Total OUTPUT Urine 1300 1300 Shift Total 1300 1300 Weight (kg) 91 91 91 91 Date 06/13/19699 - 06/14/1960 06/14/19699 - 06/15/19 0659 Shift 8191-6956 6649-1408 8415-4681 24 Hour Total 0866-3795 0800-1465 6782-6135 24 Hour Total INTAKE IV 700 700 Volume (mL) (NaCl 0.9% iv infusion) 600 600 Volume (mL) (ceFAZolin iv piggyback 2 g in D5W (iso-osmotic) 100 mL (ANCEF)) 100 100 Shift Total 700 700 OUTPUT Urine 530 041 8688 1300 1300 Void (ml) 295 425 6571 1300 1300 Drains 0 0 Negative Pressure: Output (mL) (Negative Pressure Wound Therapy Ankle -Left) 0 0 # of BMs Number of BMs 0 x 0 x Shift Total 400 750 0 1150 1300 1300 Weight (kg) 91 91 91 91 91 91 91 91 ABNORMAL/NEW FINDINGS: NONE RADIOLOGY/DIAGNOSTICS: LABORATORY: CBC: Recent Labs 06/15/19 0208 WBC 22.32* RBC 3.13* HB 9.0* HCT 27.3* PLT 429* MCV 87.2 MCH 28.8 MPV 10.0 RDW 14.2 CMP: Recent Labs 06/15/19 0208 NA 133* K 4.1 CHLOR 103 CO2 26 BUN 18 CREAT 0.68 GLUC 145* TPROT 6.2* CA 8.4* TBILI 0.5 ALKPHOS 203* ALT 13 AST 8* ANION 8 Heme: No results for input(s): RETICP, ABSRETIC, LD, VIKRAM, FE, TIBC, TRANSFERSAT in the last 24 hours. 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 ([facility]) Hypertension Gerd (Gastroesophageal Reflux Disease) Microalbuminuria History of Diabetic Gastroparesis Diabetic Polyneuropathy Associated With Type 1 Diabetes Mellitus ([facility]) Depression With Anxiety Charcot's Joint of Right Foot Hyperlipidemia Hep C W/O Coma, Chronic ([facility]) History of Drug Abuse in Remission ([facility]) Ivdu (Intravenous Drug User) Tobacco Abuse Left Ankle Joint Deformity Hyperglycemia Nicotine use disorder, F17.2 Closed Fracture of Left Ankle Sepsis ([facility]) PLAN: Status post debridement of left leg and ankle wounds, external fixator placement and wound VAC 06/10 Left trimalleolar ankle fracture/dislocation on 05/27; noncompliant with nonweightbearing and wound care On Ancef for MSSA bacteremia; concern for osteomyelitis of tibia and fibula. JOANNA negative for endocarditis. CT also demonstrated concern for abscess along posterior tibia. Possible OR later today History of polysubstance abuse including IV drug abuse; patient denies recent abuse Change Dilaudid 0.5?1 mg IV every 3 hours when necessary breakthrough pain Oxycodone 5?10 milligram every 3 hours when necessary severe pain Cymbalta 20 mg twice a day Change Lyrica 100 mg by mouth 3 times a day No BM times 2?3 weeks. Patient has refused laxatives Senna S2 by mouth twice a day, MiraLAX daily, Dulcolax suppository as needed Oxycodone prescription placed in chart. Plans to return to senior living facility at discharge noted If patient discharged home, would use methadone for pain control Kenia Calvillo MD [facility] PROGRESS HNO ID: [id number] Author: Ant Meng Service: Nephrology Author Type: Physician Type: Progress Notes Filed: 06/15/2019 5:45 PM Note Text: [facility] Nephrology Progress Note Subjective/ 44 year old year old male who we are seeing in consultation for hyponatremia. Interval Hx: Seen and examined Increased PO intake Pain is better controlled Na is 133 [address] calf yesterday, notes rec'd OR today, Debridement of left leg and ankle wound Denies any neuro changes, SOB, or chest pain NAEON ROS (-) unless noted above Objective/ 06/14/19 1618 06/14/19 2213 06/15/19 0230 06/15/19 0820 BP: 125/81 128/76 124/89 127/72 Pulse: 102 94 98 91 Resp: 18 18 18 16 Temp: 36.8 ?C (98.2 ?F) 36.7 ?C (98.1 ?F) 36.6 ?C (97.9 ?F) 36.7 ?C (98.1 ?F) TempSrc: Oral Oral Oral Temporal SpO2: 94% 94% 95% Weight: Height: 24HR INTAKE/OUTPUT: Intake/Output Summary (Last 24 hours) at 06/15/2019 0843 Last data filed at 06/15/2019 0808 Gross per 24 hour Intake 780 ml Output 1000 ml Net -220 ml Constitutional: Alert, awake, no apparent distress Head: AT NC Neck: Supple, No JVD, no thyromegaly EENT: eyes nonicteric, mm dry Cardiovascular: RRR, good S1, S2. No murmurs, clicks, or rubs Respiratory: CTA without any wheezing, rhonchi, or rales, no accessory muscle use Abdomen: soft, NT, ND Extremity: +trace BLE peripheral edema, no tremors, wound vac to LLE Neurological: moves all 4 extremities. No focal neuro deficit Psychological: Cooperative throughout assessment. Current Facility-Administered Medications Medication Dose Route Frequency - dextrose 5% in NaCl 0.9% iv infusion 75 mL/hr INTRAVENOUS CONTINUOUS - HYDROmorphone HCl 0.5-1 mg injection (DILAUDID) 0.5-1 mg INTRAVENOUS q 3 H PRN - insulin NPH human 26 Units injection pen (intermediate acting) (NovoLIN N, HumuLIN N) 26 Units SUBCUTANEOUS BID 8A/BEDTIME - insulin lispro 16 Units pen (rapid acting) (HumaLOG KWIKPEN) 16 Units SUBCUTANEOUS w MEALS - polyethylene glycol 3350 17 g packet (MIRALAX, GLYCOLAX) 17 g ORAL DAILY - oxyCODONE IR 5-10 mg tab(s) (ROXICODONE) 5-10 mg ORAL q 3 H PRN - senna-docusate 8.6-50 mg 2 tablet (SENNA-S) 2 tablet ORAL BID - pregabalin 100 mg cap(s) (LYRICA) 100 mg ORAL TID - ceFAZolin iv piggyback 2 g in D5W (iso-osmotic) 100 mL (ANCEF) 2 g INTRAVENOUS q 8 HR - perflutren lipid microspheres 1.1 mg/mL 1.3 mL injection (DEFINITY) 1.3 mL INTRAVENOUS DIRECTED PRN - insulin lispro pen (rapid acting) (HumaLOG KWIKPEN) SUBCUTANEOUS w MEALS - DULoxetine 20 mg cap(s) (CYMBALTA) 20 mg ORAL BID - lisinopril 10 mg tab(s) (ZESTRIL, PRINIVIL) 10 mg ORAL DAILY - pantoprazole DR 40 mg tab(s) (PROTONIX) 40 mg ORAL DAILY - enoxaparin 40 mg injection (LOVENOX) 40 mg SUBCUTANEOUS DAILY - NaCl 0.9% 3-5 mL 3-5 mL INTRAVENOUS q 12 H - ondansetron 4 mg tab(s) (ZOFRAN) 4 mg ORAL q 6 H PRN Or - ondansetron (PF) 4 mg injection (ZOFRAN) 4 mg INTRAVENOUS q 6 H PRN - bisacodyl 10 mg suppository (DULCOLAX) 10 mg RECTAL DAILY PRN - dextrose 40 % 15 g 15 g ORAL PRN Or - glucagon 1 mg injection (GLUCAGEN) 1 mg INTRAMUSCULAR PRN Or - dextrose 50 % 12.5 g injection 12.5 g INTRAVENOUS PRN Data/ CBC, Coags, BMP, Mg, Phos Recent Labs 06/15/19 0208 06/14/19 0107 06/13/19 0221 WBC 22.32* 33.46* 26.16* HB 9.0* 9.2* 9.4* HCT 27.3* 27.2* 27.9* PLT 429* 410* 350 NA 133* 130* 130* K 4.1 3.9 3.8 CHLOR 103 97* 98 CO2 26 27 28 BUN 18 20* 25* CREAT 0.68 0.64* 0.71 GLUC 145* 235* 281* CA 8.4* 8.6 8.5 Liver Function, Amylase, AND Lipase Recent Labs 06/15/19 0208 06/14/19 0107 06/13/19 0221 TPROT 6.2* 5.8* 5.5* ALB 1.5* 1.4* 1.4* ALT 13 14 17 AST 8* 12* 17 ALKPHOS 203* 244* 282* TBILI 0.5 0.6 0.8 Cardiac Enzymes Assessment/ 1. Hyponatremia (increased free H2O intake, poor osmole intake, pain with ADH increase) 2. 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 Sepsis 2/2 LLE cellulitis (S. Aureus bacteremia) 4. 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 Intravenous drug abuse 6. Left leg splint s/p ( left ankle # ) Plan/ Na is 133, improving (goal today) Continue to trend, goal tomorrow (136-138) Rate of rise not to exceed 5 meq/24 h Continue ns. OR today, debridement of left leg and ankle wound Continue oral h2o restriction (1200 ml/day) Continue to encourage protein intake ( Boost glucose control BID) Continue to encourage good PO intake Continue to hold the cymbalta Pain control will suppress the ADH release No other changes Will continue to follow Shar Ludwig APRN.MARTHA [facility] Attending Note I have personally performed a face to face assessment of the patient, on the day of service and have reviewed the PA/NITROGLYCERIN NITRATOR OPERATOR BATCH note. I agree with the plan as documented. Ant Meng MD [facility] PROGRESS HNO ID: [id number] Author: Angeles Gilbert Service: Orthopaedic Surgery Author Type: Nurse Practitioner Type: Progress Notes Filed: 06/15/2019 8:13 AM Note Text: ORTHOPAEDIC SURGERY DAILY PROGRESS NOTE ASSESMENT: POD # 5 S/P: IANDD / ex fix L ankle for subacute ankle fx with overlying infection PLAN: -Medical management per primary, nephro, endocrine -Pain Control -NWB LLE -PT/OT -DVT ppx per primary -Abx per ID - ancef for MSSA -Leukocytosis improving -Home going wound vac in place per wound center -CT shows possible abscess along posterior tibia, possible osteomyelitis of medial tibia -Discussion with attending, OR today INTERVAL HPI: Patient monitored, no new events overnight. Patient states that they are comfortable. Well Controlled pain. Tolerating Diet. No N/V. OBJECTIVE: BP 124/89 Pulse 98 Temp 36.6 ?C (97.9 ?F) (Oral) Resp 18 Ht 175.3 cm (5' 9) Wt 91 kg (200 lb 9.9 oz) SpO2 95% BMI 29.63 kg/m? Intake/Output Summary (Last 24 hours) 06/14 2300 - 06/15 0659 In: 100 [IV:100] Out: - Exam: General: NAD Extremities: Left Lower Extremity: ?Ex fix?clean, dry and intact. ?SILT all toes ?Wiggles all toes ?Brisk capillary refill all toes Labs: Recent Labs 06/15/19 0208 06/14/19 0107 06/13/19 0221 WBC 22.32* 33.46* 26.16* HB 9.0* 9.2* 9.4* HCT 27.3* 27.2* 27.9* PLT 429* 410* 350 NA 133* 130* 130* K 4.1 3.9 3.8 CHLOR 103 97* 98 CO2 26 27 28 CREAT 0.68 0.64* 0.71 BUN 18 20* 25* GLUC 145* 235* 281* TPROT 6.2* 5.8* 5.5* ALB 1.5* 1.4* 1.4* CA 8.4* 8.6 8.5 ALKPHOS 203* 244* 282* TBILI 0.5 0.6 0.8 AST 8* 12* 17 ALT 13 14 17 Imaging: CT ankle results: ?There is fairly extensive soft tissue injury around the ankle. ?There is a soft tissue ulceration along the medial aspect. ?There is ill-defined underlying fluid and edema. ?This may represent cellulitis. ? There is gas density within the adjacent soft tissues tracking proximally along the posterior aspect of the tibia. ?This is somewhat nonspecific in the setting of recent surgery. ?Infection with a gas-forming organism is not excludable. ?In addition, there is abnormal gas density within the distal tibia/tibial plafond. ?This is more so towards the medial aspect and adjacent to the soft tissue ulceration. ?This is highly suspicious for osteomyelitis. ?This could be further assessed with MRI. 2. ?There is a elongated fluid collection within the deep musculature of the posterior compartment/calf. ?This is detailed above. ?Abscess would be the diagnosis of exclusion. ?This could also be further assessed with MRI. SIGNATURE: Tori Conway MD PATIENT NAME: Tori Cantor DATE: 06/15/19 TIME: 6:36 AM PAGER/CONTACT #: [phone] Normal [facility] PT EDon 06-15-2019 PT ED HNO ID: [id number] Author: Brianna Sands) Saji Service: Nutrition Therapy Author Type: Hotel Guest Service Agent Type: Patient Education Filed: 06/15/2019 10:44 AM Note Text: NUTRITION THERAPY PATIENT EDUCATION SERVICE DATE: 06/15/2019 SERVICE TIME: 10:00 TOPIC: Diabetic Education Diagnosis: ADULT: Diabetes Attempted Diabetes Education, patient not in the room. Currently in OR. Will attempt again at a later time. MNT Billing: Initial Assess/15 min 1 unit SIGNATURE: Brianna Lennon DTR PATIENT NAME: Tori Cantor DATE: June 15, 2019 TIME: 10:45 AM PAGER: [phone] Normal [facility] Urinalysis Routineon 019 Bacteria LM.HPF (Urine sed) [#/Area] NONE Normal None [facility] Comment on above: Performed By: #### G LMET #### [place] [address] Ep Cells Urine 1.4 /hpf Normal 0.0-5.0 [facility] Comment on above: Performed By: #### G LMET #### [facility] [address] [place] [address] Hyaline Cast 1.0 /lpf Normal 0.0-1.0 [facility] Comment on above: Performed By: #### G LMET #### [facility] [address] [place] [address] RBC LM.HPF (Urine sed) [#/Area] 5.1 /[HPF] High 0.0-5.0 [facility] Comment on above: Performed By: #### G LMET #### [facility] [address] [place] [address] WBC LM.HPF (Urine sed) [#/Area] 3.6 /[HPF] Normal 0.0-5.0 [facility] Comment on above: Performed By: #### G LMET #### [facility] [address] [place] [address] Appearance (U) CLEAR Normal [facility] Comment on above: Performed By: #### G LMET #### [facility] [address] [place] [address] Bilirubin (U) [Mass/Vol] Negative Normal Negative [facility] Comment on above: Performed By: #### G LMET #### [place] [address] Color (U) YELLOW Normal [facility] Comment on above: Performed By: #### G LMET #### [place] [address] Glucose Ql (U) Negative Normal Negative [facility] Comment on above: Performed By: #### G LMET #### [place] [address] Hemoglobin,Urine Negative Normal Negative [facility] Comment on above: Performed By: #### G LMET #### [place] [address] Ketone Urine Negative Normal Negative [facility] Comment on above: Performed By: #### G LMET #### [place] [address] Leukocytes Esterase Negative Normal Negative [facility] Comment on above: Performed By: #### G LMET #### [place] [address] Nitrites Urine Negative Normal Negative [facility] Comment on above: Performed By: #### G LMET #### [place] [address] pH (U) 6.0 [pH] Normal 5.0-8.0 [facility] Comment on above: Performed By: #### G LMET #### [facility] [address] [place], [place] [address] Protein (U) [Mass/Vol] Negative Normal Negative [facility] Comment on above: Performed By: #### G LMET #### [facility] [address] [place], [place] [address] Specific [place], Ur 1.018 Normal 1.005-1.030 [facility] Comment on above: Performed By: #### G LMET #### [facility] [address] [place], [place] [address] Urobilinogen,Ur 1.0 EU/dL Normal 0.2-1.0 [facility] Comment on above: Performed By: #### G LMET #### [facility] [address] [place], [place] [address] ANES Le 06-14-2019 ANES POST HNO ID: [id number] Author: Shiv Barriga Service: Anesthesiology Author Type: Physician Type: Anesthesia PostOp Filed: 06/14/2019 2:35 PM Note Text: POST ANESTHESIA EVALUATION NOTE SERVICE DATE: 06/14/2019 SERVICE TIME: 2:35 PM : 1975 Vitals: 06/13/19153506/13/19213306/14/1935606/14/19 0745 Temp: 36.8 ?C (98.2 ?F) 37.1 ?C (98.8 ?F) 37 ?C (98.6 ?F) 37.1 ?C (98.8 ?F) 06/13/19153506/13/19213306/14/1935606/14/19 0745 BP: 129/63 116/73 122/74 124/73 06/13/19153506/13/19213306/14/1935606/14/19 0745 Pulse: 96 103 104 90 06/13/19153506/13/19213306/14/1935606/14/19 0745 Resp: 18 18 16 18 06/13/19153506/13/19213306/14/1935606/14/19 0745 SpO2: 96% 95% 95% 94% Validated Vital Signs: Yes POST ANES STATUS: No apparent anesthetic complications. The patient is appropriately hydrated with stable respiratory and cardiovascular status. Patient has safe and adequate airway control. The patient has appropriate pain relief and no significant post operative nausea or vomiting. The patient has achieved baseline mental status. Intra-Operative Events: No Significant Anesthesia Events Further assessment by Anesthesia Service: None Other Remarks: SIGNATURE: Shiv Ortega MD PATIENT NAME: Tori Cantor DATE: June 14, 2019 TIME: 2:35 PM PAGER/CONTACT #: [phone] [facility] ANES PREOPon 06-14-2019 ANES PREOP HNO ID: [id number] Author: Ken Jorge Service: Anesthesiology Author Type: Physician Type: Anesthesia PreOp Filed: 06/14/2019 10:33 AM Note Text: ANESTHESIOLOGY DAY OF SURGERY NOTE SERVICE DATE: 06/14/2019 SERVICE TIME: 10:30 AM : 1975 Procedure(s) (LRB): ORIF ANKLE TRIMALLEOLAR, WITHOUT FIXATION POSTERIOR LIP (Left) APPLICATION EXTERNAL FIXATOR ANKLE (Left) Surgeon(s): Jayy Phelps Estimated body mass index is 29.63 kg/m? as calculated from the following: Height as of this encounter: 175.3 cm (5' 9). Weight as of this encounter: 91 kg (200 lb 9.9 oz). Most recent hematocrit and potassium results: Hematocrit 27.2 06/14/2019 Potassium 3.9 06/14/2019 ANES DOS/PREOP NOTE: Vitals: 06/13/19 0848 06/13/19 1536 06/13/19 2134 06/14/19 0357 BP: 139/78 129/63 116/73 122/74 Pulse: 88 96 103 104 Resp: 18 18 18 16 Temp: 37.1 ?C (98.8 ?F) 36.8 ?C (98.2 ?F) 37.1 ?C (98.8 ?F) 37 ?C (98.6 ?F) TempSrc: Oral Temporal Temporal Temporal SpO2: 96% 96% 95% 95% Weight: Height: ACTIVE PROBLEM LIST Uncontrolled type 1 diabetes mellitus mild nonproliferative retinopathy without macular edema (HCC) Hypertension Gerd (Gastroesophageal Reflux Disease) Microalbuminuria History of Diabetic Gastroparesis Diabetic Polyneuropathy Associated With Type 1 Diabetes Mellitus (Hcc) Depression With Anxiety Charcot's Joint of Right Foot Hyperlipidemia Hep C W/O Coma, Chronic (Hcc) History of Drug Abuse in Remission ([facility]) Ivdu (Intravenous Drug User) Tobacco Abuse Left Ankle Joint Deformity Hyperglycemia Nicotine use disorder, F17.2 Closed Fracture of Left Ankle Sepsis ([facility]) 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 - Pancreatitis 08/2014 - Tobacco abuse 05/27/2019 - Trimalleolar fracture of left ankle PAST SURGICAL HISTORY Procedure Laterality Date - NONE FAMILY HISTORY Problem Relation Age of Onset - Hypertension Mother - Diabetes Mother - Stroke Mother - Heart Mother CHF - Cataract Mother - Hypertension Father - COPD Father - Emphysema Father Social History: Social History Tobacco Use - Smoking status: Current Every Day Smoker Packs/day: 1.00 Types: Cigarettes - Smokeless tobacco: Never Used Substance Use Topics - Alcohol use: Yes Comment: socially - Drug use: Yes Types: Cocaine, Amphetamines Comment: hist of cocaine and marajuana use, fentanyl No current facility-administered medications on file prior to encounter. Current Outpatient Medications on File Prior to Encounter Medication Sig - ibuprofen (MOTRIN) 400 mg tablet Take 400 mg by mouth every 6 hours as needed. - insulin glargine (LANTUS SOLOSTAR U-100 INSULIN) 100 unit/mL (3 mL) inpn Inject 24 Units subcutaneously twice daily. While at [facility] - levoFLOXacin (LEVAQUIN) 750 mg tablet Take 750 mg by mouth once daily. End date 06-23-19 - enoxaparin (LOVENOX) 40 mg/0.4 mL syrg Inject 40 mg subcutaneously every 24 hours. - oxyCODONE-acetaminophen (PERCOCET) 5-325 mg tablet Take 1 tablet by mouth every 6 hours as needed. - insulin detemir U-100 (LEVEMIR FLEXTOUCH U-100 INSULN) 100 unit/mL (3 mL) inpn injection Inject 30 Units subcutaneously twice daily. While at home - doxycycline monohydrate (AVIDOXY) 100 mg tablet Take 1 tablet by mouth twice daily for 14 days. (Patient taking differently: Take 100 mg by mouth twice daily. End date 06-23-19 ) - acetaminophen (TYLENOL) 325 mg tablet Take 2 tablets by mouth every 6 hours as needed. - insulin lispro (HUMALOG KWIKPEN INSULIN) 100 unit/mL inpn Inject 14 Units subcutaneously three times daily before meals. (Patient taking differently: Inject subcutaneously three times daily before meals. Sliding scale 100-150: 2 units 151-200: 4 units 201-250: 6 units 251-300: 8 units 301-350: 10 units 351-400: 12 units 401-450: 14 units <70 or >400 call ) - lisinopril (ZESTRIL, PRINIVIL) 10 mg tablet Take 1 tablet by mouth once daily for 15 days. - pantoprazole DR (PROTONIX) 40 mg tablet Take 40 mg by mouth once daily. - Lancets lancets Use as instructed - Insulin Dudley, Disposable, (BD ULTRAFINE III MINI PEN) 31 gauge x 3/16 ndle USE WITH INSULIN PENS 4TIMES DAILY - blood sugar diagnostic (play140TOUCH ULTRA TEST) test strip CHECK BLOOD SUGARS 6 TIMES DAILY - DULoxetine (CYMBALTA) 30 mg capsule Take 1 capsule by mouth once daily. (Patient taking differently: Take 120 mg by mouth once daily. ) - pregabalin (LYRICA) 150 mg capsule Take 100 mg by mouth three times daily. - cyclobenzaprine (FLEXERIL) 5 mg tablet Take 5 mg by mouth every 8 hours as needed. Current Facility-Administered Medications Medication Dose Route Frequency Provider Last Rate Last Dose - [MAR Hold due to Transfer] iv contrast (radiology procedure) INTRAVENOUS DIRECTED JACOBN Angeles Gilbert - [MAR Hold due to Transfer] pregabalin 150 mg cap(s) (LYRICA) 150 mg ORAL TID Osito Fetsko 150 mg at 06/14/19833 - [MAR Hold due to Transfer] ceFAZolin iv piggyback 2 g in D5W (iso-osmotic) 100 mL (ANCEF) 2 g INTRAVENOUS q 8 HR Donnell Jose 200 mL/hr at 06/14/19833 2 g at 06/14/19833 - [MAR Hold due to Transfer] NaCl 0.9% iv infusion 50 mL/hr INTRAVENOUS CONTINUOUS Salina Midha 50 mL/hr at 06/12/191926 50 mL/hr at 06/12/191926 - [MAR Hold due to Transfer] insulin lispro 30 Units pen (rapid acting) (HumaLOG KWIKPEN) 30 Units SUBCUTANEOUS w MEALS Salina Midha 15 Units at 06/13/19 1658 - [MAR Hold due to Transfer] insulin NPH human 30 Units injection pen (intermediate acting) (NovoLIN N, HumuLIN N) 30 Units SUBCUTANEOUS BID 8A/BEDTIME Salina Midha 30 Units at 06/13/192126 - [MAR Hold due to Transfer] perflutren lipid microspheres 1.1 mg/mL 1.3 mL injection (DEFINITY) 1.3 mL INTRAVENOUS DIRECTED PRN Donnell Garcia - [MAR Hold due to Transfer] insulin lispro pen (rapid acting) (HumaLOG KWIKPEN) SUBCUTANEOUS w MEALS Salina Midha 3 Units at 06/13/19 1214 - [MAR Hold due to Transfer] DULoxetine 20 mg cap(s) (CYMBALTA) 20 mg ORAL BID Datinder B Devon 20 mg at 06/14/19 0835 - [MAR Hold due to Transfer] HYDROmorphone HCl 0.5 mg injection (DILAUDID) 0.5 mg INTRAVENOUS q 4 H PRN Velvet Fouad 0.5 mg at 06/14/19 0840 - [MAR Hold due to Transfer] lisinopril 10 mg tab(s) (ZESTRIL, PRINIVIL) 10 mg ORAL DAILY Velvet Fouad 10 mg at 06/14/19 0834 - [MAR Hold due to Transfer] pantoprazole DR 40 mg tab(s) (PROTONIX) 40 mg ORAL DAILY Velvet Fouad 40 mg at 06/14/19 0834 - [MAR Hold due to Transfer] enoxaparin 40 mg injection (LOVENOX) 40 mg SUBCUTANEOUS DAILY Velvet Fouad 40 mg at 06/13/192121 - [MAR Hold due to Transfer] NaCl 0.9% 3-5 mL 3-5 mL INTRAVENOUS q 12 H Velvet Fouad 3 mL at 06/14/19 0835 - [MAR Hold due to Transfer] ondansetron 4 mg tab(s) (ZOFRAN) 4 mg ORAL q 6 H PRN Velvet Fouad Or - [MAR Hold due to Transfer] ondansetron (PF) 4 mg injection (ZOFRAN) 4 mg INTRAVENOUS q 6 H PRN Velvet Tsaid - [MAR Hold due to Transfer] docusate sodium 100 mg cap(s) (COLACE) 100 mg ORAL BID PRN Velvet Torresuad 100 mg at 06/14/19 0834 - [SEP Hold due to Transfer] bisacodyl 10 mg suppository (DULCOLAX) 10 mg RECTAL DAILY PRN Velvet Tsaid - [SEP Hold due to Transfer] dextrose 40 % 15 g 15 g ORAL PRN Velvet Tsaid Or - [MAR Hold due to Transfer] glucagon 1 mg injection (GLUCAGEN) 1 mg INTRAMUSCULAR PRN Velvet Tsaid Or - [SEP Hold due to Transfer] dextrose 50 % 12.5 g injection 12.5 g INTRAVENOUS PRN Velvet Phelps Allergies: ALLERGIES No Known Allergies DOS EXAM: Adequate NPO Status: Yes Anesthetic Risks, Benefits, Alternatives, Personnel and Consent Discussed: Yes Patient agrees to proceed: Yes Previous Anesthesia: No history of adverse event Airway Assessment: MP 3; Neck ROM: Full ROM without neurologic symptoms; Airway Evaluation: No significant abnormalities Symptoms of Sleep Apnea: Hypertension, Age over 50 (44 year old) and Male gender Dentition: Edentulous Additional Physical Exam: Lungs: Patient health status unchanged since recent history and physical. See history and physical for exam findings. Cardiac: Patient health status unchanged since recent history and physical. See history and physical for exam findings. Additional Pertinent Findings: N/A Blood Products: Not anticipated for this procedure Anesthetic Plan: MAC with general as back up Anesthetic Monitoring: Standard ASA Monitors Pain Management Plan: Parenteral or Oral ASA Class: 3 Other Medical Problems: Closed fracture left ankle s/p debridement and ex fix 06/10/19 - fall IVDU - in remission Sepsis - LLE cellulitis, S. Aureus bacteremia GERD Chronic hepatitis C Uncontrolled DM1 - Hgb A1C 11.3 Diabetic gastroparesis HLD HTN Recent Lab Values WBC 33.46 06/14/2019 Hemoglobin 9.2 06/14/2019 Hematocrit 27.2 06/14/2019 Platelet Count 410 06/14/2019 PT INR 1.09 06/10/2019 APTT 27.6 06/09/2019 Sodium 130 06/14/2019 Potassium 3.9 06/14/2019 Chloride 97 06/14/2019 CO2 27 06/14/2019 BUN 20 06/14/2019 Creatinine 0.64 06/14/2019 Glucose 235 06/14/2019 Calcium 8.6 06/14/2019 Magnesium 1.9 09/19/2014 GLUCOSE METER 326 06/14/2019 No results found for: ABORHD, ABSCREEN Chronic Beta Andrews medication administered within 24 hours: N/A I have interviewed and examined the patient. I have reviewed the medical record and/or the pre-anesthesia evaluation, pertinent labs, and test results. Significant changes in the patient's condition since the History and Physical, not otherwise documented in primary service progress notes: No This contains updated information obtained within 48 hours of Surgery/Procedure. SIGNATURE: Ken Jorge MD PATIENT NAME: Tori Cantor DATE: June 14, 2019 TIME: 10:03 AM CSN: [id number] CONCLUSIONS: - Technically difficult exam due to suboptimal positioning. - Exam indication: Initial evaluation of infective endocarditis with positive blood cultures - The left ventricle is normal in size. There is no left ventricular hypertrophy. Left ventricular systolic function is normal. EF = 71 ? 5% (2D biplane) Normal left ventricular diastolic function. - The right ventricle is normal in size. Right ventricular systolic function is normal. - There are no significant valvular abnormalities. No obvious valvular vegetation seen. Consider JOANNA, if clinical concern remains. - The patient has not had a prior CC echocardiographic exam for comparison. Normal [facility] BRIEF OP NOTon 06-14-2019 BRIEF OP NOT HNO ID: [id number] Author: Venancio Weiss Service: Cardiovascular Medicine Author Type: Physician Type: Brief Op Note Filed: 06/14/2019 11:14 AM Note Text: JOANNA performed with 2 mg versed, 50 mcg fentanyl, and 180 mg Propofol. Pt tolerated procedure well. Normal [facility] CASE MANAGEMon 06-14-2019 CASE MANAGEM HNO ID: [id number] Author: Muna (Rn) MATT Cordero Service: Care Management Author Type: Registered Nurse Type: Care Mgt Progress Note Filed: 06/14/2019 4:43 PM Note Text: CARE MANAGEMENT PROGRESS NOTE SERVICE DATE: 06/14/2019 SERVICE TIME: 1642 LOS: 5 days Needs Prior to Discharge: Precertification;Discharg e Transportation Plan is to rteturn to [facility], precert started. Facility aware will need wound vac SIGNATURE: Muna Cordero RN PATIENT NAME: Tori Cantor DATE: June 14, 2019 TIME: 4:42 PM PAGER/CONTACT #: [phone] Normal [facility] CONSULTon 06-14-2019 CONSULT HNO ID: [id number] Author: Kenia Calvillo Service: Pain Management Author Type: Physician Type: Consults Filed: 06/14/2019 6:58 PM Note Text: Name: TORI CANTOR Age: [age] year old PAIN MANAGEMENT: s/p IANDD left tibia wounds; external fixation LLE, left trimalleolar ankle fracture/dislocation 05/27; Right foot Charcot deformity, DM neuropathy, IVDA Pain Description: Patient sitting in chair, complains of pain across his left foot as a solid ache. Describes it as a advice. Also complains of ache in his left calf. 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 Patient had been noncompliant with nonweightbearing restrictions. He also was seen in the ED 06/08 after removing his own splint; patient left AMA. Patient is a IV vancomycin. He underwent irrigation and debridement on 06/10 the wound VAC and external fixator placement. Blood cultures positive for MSSA bacteremia. JOANNA negative for infective endocarditis. CT left tibia and fibula showing concern for osteomyelitis, possible calf abscess and gas forming infection. Ongoing leukocytosis. Patient on Ancef Prior to admission patient was taking Lyrica 100 mg by mouth 3 times a day. He smokes 1 pack per day. He denies alcohol. He does use marijuana infrequently. He states he had done street drugs for 30 years and then he last used a while ago. He has a history of IV cocaine and methamphetamine. He also admits to history of frequent IV fentanyl use. OARRS Review: Mostly for Lyrica; 2 small quantity opiate prescriptions in the last 2 years Most recent 06/06/19 for both Lyrica 100 mg #30 for 10 day supply and Percocet 5/325 #30 for 7 day supply Summary Total Prescriptions: 11 Total Prescribers: 4 Total Pharmacies: 2 Narcotics* ?(excluding buprenorphine) Current Qty: 0 Current MME/day: 0.00 30 Day Avg MME/day: 9.00 Sedatives* Current Qty: 5 Current LME/day: 4.02 30 Day Avg LME/day: 1.41 Buprenorphine* Current Qty: 0 Current mg/day: 0.00 30 Day Avg mg/day: 0.00 Rx Data Total Prescriptions: 11 ?? 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 [place] 01/31/2019 1 12/07/2018 Lyrica 150 MG Capsule 90.00 30 Ch Pet [id number] [facility] ([id number]) 1 2.88 LME [facility] [place] 12/07/2018 1 12/07/2018 Lyrica 150 MG Capsule 90.00 30 Ch Pet [id number] [facility] ([id number]) 0 2.88 LME [facility] [place] 10/05/2018 1 10/04/2018 Hydrocodone-Acetamin 5-325 MG 18.00 3 Ju And [id number] [facility] ([id number]) 0 30.00 MME [place] 03/03/2018 1 03/03/2018 Lyrica 150 MG Capsule 90.00 30 Ch Pet [id number] [facility] ([id number]) 0 2.88 LME [place] 10/28/2017 1 08/25/2017 Lyrica 150 MG Capsule 90.00 30 Ch Pet [id number] [facility] (2320) 1 2.88 LME [facility] [place] 09/11/2017 1 08/25/2017 Lyrica 150 MG Capsule 90.00 30 Ch Pet [id number] [facility] (2320) 0 2.88 LME [facility] [place] 07/04/2017 1 01/14/2017 Lyrica 150 MG Capsule 81.00 27 Ch Pet [id number] [facility] (2320) 2 2.88 LME [facility] [place] Current Facility-Administered Medications Medication Dose Route Frequency Provider Last Rate Last Dose - iv contrast (radiology procedure) INTRAVENOUS DIRECTED PRN Venancio A Abhishek - NaCl 0.9% 1,000 mL iv bolus 1,000 mL INTRAVENOUS ONCE Lucita Ciltea 1,000 mL at 06/14/19 1301 - pregabalin 150 mg cap(s) (LYRICA) 150 mg ORAL TID Venancio A Abhishek 150 mg at 06/14/19 0834 - ceFAZolin iv piggyback 2 g in D5W (iso-osmotic) 100 mL (ANCEF) 2 g INTRAVENOUS q 8 HR Venancio A Abhishek 200 mL/hr at 06/14/19 0834 2 g at 06/14/19 0834 - NaCl 0.9% iv infusion 50 mL/hr INTRAVENOUS CONTINUOUS Venancio A Abhishek 50 mL/hr at 06/12/19 1927 50 mL/hr at 06/12/19 1927 - insulin lispro 30 Units pen (rapid acting) (HumaLOG KWIKPEN) 30 Units SUBCUTANEOUS w MEALS Venancio A Abhishek 15 Units at 06/13/19 1658 - insulin NPH human 30 Units injection pen (intermediate acting) (NovoLIN N, HumuLIN N) 30 Units SUBCUTANEOUS BID 8A/BEDTIME Venancio A Abhishek 26 Units at 06/14/19 1307 - perflutren lipid microspheres 1.1 mg/mL 1.3 mL injection (DEFINITY) 1.3 mL INTRAVENOUS DIRECTED PRN Venancio A Abhishek - insulin lispro pen (rapid acting) (HumaLOG KWIKPEN) SUBCUTANEOUS w MEALS Venancio A Abhishek 10 Units at 06/14/19 1302 - DULoxetine 20 mg cap(s) (CYMBALTA) 20 mg ORAL BID Venancio A Abhishek 20 mg at 06/14/19 0835 - HYDROmorphone HCl 0.5 mg injection (DILAUDID) 0.5 mg INTRAVENOUS q 4 H PRN Venancio A Abhishek 0.5 mg at 06/14/19 0840 - lisinopril 10 mg tab(s) (ZESTRIL, PRINIVIL) 10 mg ORAL DAILY Venancio A Abhishek 10 mg at 06/14/19 0834 - pantoprazole DR 40 mg tab(s) (PROTONIX) 40 mg ORAL DAILY Venancio A Abhishek 40 mg at 06/14/19 0834 - enoxaparin 40 mg injection (LOVENOX) 40 mg SUBCUTANEOUS DAILY Venancio A Abhishek 40 mg at 06/13/19 2122 - NaCl 0.9% 3-5 mL 3-5 mL INTRAVENOUS q 12 H Venancio A Abhishek 3 mL at 06/14/19 0835 - ondansetron 4 mg tab(s) (ZOFRAN) 4 mg ORAL q 6 H PRN Venancio A Abhishek Or - ondansetron (PF) 4 mg injection (ZOFRAN) 4 mg INTRAVENOUS q 6 H PRN Venancio A Abhishek - docusate sodium 100 mg cap(s) (COLACE) 100 mg ORAL BID PRN Venancio A Abhishek 100 mg at 06/14/19 0834 - bisacodyl 10 mg suppository (DULCOLAX) 10 mg RECTAL DAILY PRN Venancio A Abhishek - dextrose 40 % 15 g 15 g ORAL PRN Venancio A Abhishek Or - glucagon 1 mg injection (GLUCAGEN) 1 mg INTRAMUSCULAR PRN Venancio A Abhishek Or - dextrose 50 % 12.5 g injection 12.5 g INTRAVENOUS PRN Venancio A Abhishek ibuprofen (MOTRIN) 400 mg tablet, Take 400 mg by mouth every 6 hours as needed., Disp: , Rfl: insulin glargine (LANTUS SOLOSTAR U-100 INSULIN) 100 unit/mL (3 mL) inpn, Inject 24 Units subcutaneously twice daily. While at [facility] , Disp: , Rfl: levoFLOXacin (LEVAQUIN) 750 mg tablet, Take 750 mg by mouth once daily. End date 06-23-19, Disp: , Rfl: enoxaparin (LOVENOX) 40 mg/0.4 mL syrg, Inject 40 mg subcutaneously every 24 hours., Disp: , Rfl: oxyCODONE-acetaminophen (PERCOCET) 5-325 mg tablet, Take 1 tablet by mouth every 6 hours as needed., Disp: , Rfl: insulin detemir U-100 (LEVEMIR FLEXTOUCH U-100 INSULN) 100 unit/mL (3 mL) inpn injection, Inject 30 Units subcutaneously twice daily. While at home, Disp: , Rfl: doxycycline monohydrate (AVIDOXY) 100 mg tablet, Take 1 tablet by mouth twice daily for 14 days. (Patient taking differently: Take 100 mg by mouth twice daily. End date 06-23-19 ), Disp: 28 tablet, Rfl: 0 acetaminophen (TYLENOL) 325 mg tablet, Take 2 tablets by mouth every 6 hours as needed., Disp: , Rfl: insulin lispro (HUMALOG KWIKPEN INSULIN) 100 unit/mL inpn, Inject 14 Units subcutaneously three times daily before meals. (Patient taking differently: Inject subcutaneously three times daily before meals. Sliding scale 100-150: 2 units 151-200: 4 units 201-250: 6 units 251-300: 8 units 301-350: 10 units 351-400: 12 units 401-450: 14 units <70 or >400 call MD ), Disp: , Rfl: lisinopril (ZESTRIL, PRINIVIL) 10 mg tablet, Take 1 tablet by mouth once daily for 15 days., Disp: 15 tablet, Rfl: 0, 05/26/[address] (PROTONIX) 40 mg tablet, Take 40 mg by mouth once daily. , Disp: , Rfl: , 05/26/2019 Lancets lancets, Use as instructed, Disp: 100 Each, Rfl: 11, Taking Insulin Dudley, Disposable, (BD ULTRAFINE III MINI PEN) 31 gauge x 3/16 ndle, USE WITH INSULIN PENS 4TIMES DAILY, Disp: 400 Each, Rfl: 3, Taking blood sugar diagnostic (play140TOUCH ULTRA TEST) test strip, CHECK BLOOD SUGARS 6 TIMES DAILY, Disp: 200 Strip, Rfl: 3, Taking DULoxetine (CYMBALTA) 30 mg capsule, Take 1 capsule by mouth once daily. (Patient taking differently: Take 120 mg by mouth once daily. ), Disp: , Rfl: 0, 05/25/2019 pregabalin (LYRICA) 150 mg capsule, Take 100 mg by mouth three times daily. , Disp: , Rfl: , Taking cyclobenzaprine (FLEXERIL) 5 mg tablet, Take 5 mg by mouth every 8 hours as needed., Disp: , Rfl: Social History Tobacco Use - Smoking status: Current Every Day Smoker Packs/day: 1.00 Types: Cigarettes - Smokeless tobacco: Never Used Substance Use Topics - Alcohol use: Yes Comment: socially - Drug use: Yes Types: Cocaine, Amphetamines Comment: hist of cocaine and marajuana use, fentanyl FAMILY HISTORY Problem Relation Age of Onset - Hypertension Mother - Diabetes Mother - Stroke Mother - Heart Mother CHF - Cataract Mother - Hypertension Father - COPD Father - Emphysema Father PAST SURGICAL HISTORY Procedure Laterality Date - NONE ROS: All of the following reviewed and negative except as noted below: GENERAL: no fever, chills, sweats, weight loss, fatigue, generalized weakness HEENT: no headache, vision changes, eye discomfort, hearing change, ear discomfort, sinus pain, nasal discharge or congestion, oral lesions, soreness, dental problem NECK: no adenopathy, discomfort, change in ROM CHEST: no shortness of breath, dyspnea on exertion, wheezing, cough, sputum production or chest pain HEART: no chest pain, palpitations, syncope ABDOMEN: no nausea, vomiting, constipation, diarrhea, abdominal pain : no dysuria, urgency, frequency, history of stones, incontinence NEURO: no confusion or alteration in consciousness, slurred speech, seizure, focal weakness EXTREMITIES: See history of present illness HEME: no new adenopathy, bruises, petechiae PSYCH: no depression, anxiety, agitation PAIN PSYCHIATRIC EXAM: GENERAL: alert, oriented to person, place, time JUDGMENT AND INSIGHT: intact APPEARANCE: neatly groomed DEMEANOR: coooperative, not hostile, mistrustful, preoccupied, or demanding ACTIVITY: normal, not hyperactive or hypoactive, no tremors, tics EYE CONTACT: normal SPEECH: normal, rate, volume, articulation, coherence, spontaneity MOOD: normal, without overt sadness, grief, anxiety, appropriate to situation IDEATION: normal and without suicidal or homicidal ideation MEMORY: intact PHYSICAL EXAMINATION: GENERAL: well nourished and developed; no acute distress; alert and oriented x 3; intact judgement and insight HEENT: no evidence of trauma; cranial nerves intact; eyes clear EOMI; no hearing deficits apparent; nasal passages unremarkable; throat and mucous membranes clear NECK: supple without lymphadenopathy; no JVD; no thyromegaly CHEST: clear bilaterally to auscultation; normal chest movement; no rales or rhonchi HEART: regular rate and rhythm, normal S1 and S2, no murmurs, clicks, rubs, or gallops ABDOMEN: soft; nondistended; bowel sounds present; no hepatomegaly; no splenomegaly; no tenderness EXTREMITIES: no evidence of clubbing; no cyanosis; left leg with wound VAC; intact external fixator 1+ edema NEURO: cranial nerves intact; no focal deficits; no confusion; no tremor; sensorium normal SKIN: no decubitus lesions HEME: no bruising; no adenopathy PSYCH: no evidence of depression; no anxiety; no agitation; no apparent hallucinations BP 124/73 Pulse 90 Temp 37.1 ?C (98.8 ?F) (Oral) Resp 18 Ht 175.3 cm (5' 9) Wt 91 kg (200 lb 9.9 oz) SpO2 94% BMI 29.63 kg/m? BMI 29.63 kg/(m2) Date 06/14/19699 - 06/15/1960 Shift 1138-2284 7736-6491 5104-5526 24 Hour Total INTAKE Shift Total OUTPUT Urine 1300 1300 Shift Total 1300 1300 Weight (kg) 91 91 91 91 Date 06/13/19699 - 06/14/1965806/14/19699 - 06/15/19 0659 Shift 6207-1406 3680-9643 0186-0962 24 Hour Total 7394-3316 6070-9788 5608-9429 24 Hour Total INTAKE IV 700 700 Volume (mL) (NaCl 0.9% iv infusion) 600 600 Volume (mL) (ceFAZolin iv piggyback 2 g in D5W (iso-osmotic) 100 mL (ANCEF)) 100 100 Shift Total 700 700 OUTPUT Urine 343 331 6279 1300 1300 Void (ml) 620 009 6774 1300 1300 Drains 0 0 Negative Pressure: Output (mL) (Negative Pressure Wound Therapy Ankle -Left) 0 0 # of BMs Number of BMs 0 x 0 x Shift Total 400 750 0 1150 1300 1300 Weight (kg) 91 91 91 91 91 91 91 91 ABNORMAL/NEW FINDINGS: NONE RADIOLOGY/DIAGNOSTICS: LABORATORY: CBC: Recent Labs 06/14/19106 WBC 33.46* RBC 3.21* HB 9.2* HCT 27.2* PLT 410* MCV 84.7 MCH 28.7 MPV 10.6 RDW 13.7 CMP: Recent Labs 06/14/19106 NA 130* K 3.9 CHLOR 97* CO2 27 BUN 20* CREAT 0.64* GLUC 235* TPROT 5.8* CA 8.6 TBILI 0.6 ALKPHOS 244* ALT 14 AST 12* ANION 10 Heme: No results for input(s): RETICP, ABSRETIC, LD, VIKRAM, FE, TIBC, TRANSFERSAT in the last 24 hours. 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 ([facility]) Hypertension Gerd (Gastroesophageal Reflux Disease) Microalbuminuria History of Diabetic Gastroparesis Diabetic Polyneuropathy Associated With Type 1 Diabetes Mellitus ([facility]) Depression With Anxiety Charcot's Joint of Right Foot Hyperlipidemia Hep C W/O Coma, Chronic ([facility]) History of Drug Abuse in Remission ([facility]) Ivdu (Intravenous Drug User) Tobacco Abuse Left Ankle Joint Deformity Hyperglycemia Nicotine use disorder, F17.2 Closed Fracture of Left Ankle Sepsis ([facility]) PLAN: Status post debridement of left leg and ankle wounds, external fixator placement and wound VAC 06/10 Left trimalleolar ankle fracture/dislocation on 05/27; noncompliant with nonweightbearing and wound care On Ancef for osteomyelitis of tibia and fibula. CT also demonstrated concern for possible calf abscess. MSSA bacteremia. JOANNA negative for endocarditis. On Ancef History of polysubstance abuse including IV drug abuse; patient denies recent abuse Change Dilaudid 1 mg IV daily when necessary wound VAC change Oxycodone 5?10 milligram every 3 hours when necessary severe pain Cymbalta 20 mg twice a day Change Lyrica 100 mg by mouth 3 times a day No BM times 2?3 weeks. Patient has refused laxatives Senna S2 by mouth twice a day, MiraLAX daily, Dulcolax suppository as needed Our team will follow with you. Plans to return to senior living facility at discharge noted If patient discharged home, would use methadone for pain control Thank you for this consult Kenia Calvillo MD [facility] CONSULT PROGon 06-14-2019 CONSULT PROG HNO ID: [id number] Author: Trinidad Hogan) MATT Calzada Service: Wound/Ostomy Author Type: Registered Nurse Type: Consult Progress Note Filed: 06/14/2019 3:35 PM Note Text: WOUND CARE NURSE PROGRESS NOTE SERVICE DATE: 06/14/2019 SERVICE TIME: 1530 REASON FOR VISIT: returning home [facility] wound vac to [employer] TIME SPENT (minutes): 0 K.N. Josee GRIDCAP MACHINE OPERATOR spoke with Hoa from [facility] today. Patient has a home wound vac in his room (unused) but he will not need this unit due to he is not going home but to a facility who will have their own wound vac. I took home wound vac unit down to [employer] for Hoa to chart picker tomorrow. Informed patient and [employer] what plan is. SIGNATURE: CELENA Abdullahi,RN,CWON PATIENT NAME: Tori Cantor DATE: June 14, 2019 TIME: 3:30 PM CONTACT#: [id number] [facility] CONSULT PROG HNO ID: [id number] Author: Lucita Del Real Service: Endocrinology Author Type: Physician Type: Consult Progress Note Filed: 06/14/2019 3:51 PM Note Text: ENDOCRINOLOGY CONSULT PROGRESS NOTE SERVICE DATE: 06/14/2019 SERVICE TIME: 12:45 PM Subjective INTERVAL HPI: Following for DM type 1. Adm with left ankle fracture after a fall, has left leg infection, cellulitis. Notes and orders reviewed. Patient refused insulin this am; was NPO for JOANNA; agreed to take NPH 26 units and humalog 10 units x1; will readjust doses as he is so afraid of hypoglycemia and will refuse to take his insulin Diet: DIET CARBOHYDRATE CONTROLLED p.o intake good, following diet. Activity:Bedrest Review of Systems: PAIN ASSESSMENT: c/o left ankle pain (12/27) GENERAL: has fatigue, malaise, no fever/chills RESPIRATORY: Negative for cough, hemoptysis, wheezing, COPD, dyspnea or shortness of breath CARDIOVASCULAR: Negative for chest pain, leg swelling, hypertension, CHF or palpitations GI: No nausea, vomiting, or diarrhea ENDOCRINE: Negative for cold or heat intolerance, polyuria or polydipsia. The remainder of the review of systems is negative. Current Facility-Administered Medications Medication Dose Route Frequency - HYDROmorphone HCl 0.5 mg injection (DILAUDID) 0.5 mg INTRAVENOUS q 4 H PRN - lisinopril 10 mg tab(s) (ZESTRIL, PRINIVIL) 10 mg ORAL DAILY - pantoprazole DR 40 mg tab(s) (PROTONIX) 40 mg ORAL DAILY - enoxaparin 40 mg injection (LOVENOX) 40 mg SUBCUTANEOUS DAILY - NaCl 0.9% 3-5 mL 3-5 mL INTRAVENOUS q 12 H - ondansetron 4 mg tab(s) (ZOFRAN) 4 mg ORAL q 6 H PRN Or - ondansetron (PF) 4 mg injection (ZOFRAN) 4 mg INTRAVENOUS q 6 H PRN - docusate sodium 100 mg cap(s) (COLACE) 100 mg ORAL BID PRN - bisacodyl 10 mg suppository (DULCOLAX) 10 mg RECTAL DAILY PRN - dextrose 40 % 15 g 15 g ORAL PRN Or - glucagon 1 mg injection (GLUCAGEN) 1 mg INTRAMUSCULAR PRN Or - dextrose 50 % 12.5 g injection 12.5 g INTRAVENOUS PRN - perflutren lipid microspheres 1.1 mg/mL 1.3 mL injection (DEFINITY) 1.3 mL INTRAVENOUS DIRECTED PRN - insulin lispro pen (rapid acting) (HumaLOG KWIKPEN) SUBCUTANEOUS w MEALS - DULoxetine 20 mg cap(s) (CYMBALTA) 20 mg ORAL BID - ceFAZolin iv piggyback 2 g in D5W (iso-osmotic) 100 mL (ANCEF) 2 g INTRAVENOUS q 8 HR - NaCl 0.9% iv infusion 50 mL/hr INTRAVENOUS CONTINUOUS - insulin lispro 30 Units pen (rapid acting) (HumaLOG KWIKPEN) 30 Units SUBCUTANEOUS w MEALS - insulin NPH human 30 Units injection pen (intermediate acting) (NovoLIN N, HumuLIN N) 30 Units SUBCUTANEOUS BID 8A/BEDTIME - pregabalin 150 mg cap(s) (LYRICA) 150 mg ORAL TID - iv contrast (radiology procedure) INTRAVENOUS DIRECTED PRN Objective PHYSICAL EXAM: GENERAL: awake, alert; talking on the phone SKIN: no rash/ bruising OROPHARYNX: moist EXTREMITIES: left leg in a bandage and external fixation frame; right foot charcot's deformity, no ulcers BP 124/73 Pulse 90 Temp (Src) 98.8 (Oral) Resp 18 Ht 5' 9 (1.75m) Wt 200 lb 9.9 oz (91.0kg) SpO2 94% BMI 29.61 kg/(m2). O2 Therapy: Room Air DATA: Diagnostic tests reviewed for today's visit: Most recent labs and imaging results. Last 24 hr BS reviewed. Recent Labs 06/14/19 1148 06/14/19 0628 06/14/19 0107 06/13/19 2121 06/13/19 1639 06/13/19 1540 06/13/19 0221 06/12/19 0438 06/11/192119 GLUC -- -- 235* -- -- -- -- 281* -- 221* -- 275* GLUCOSEMETER 376* 326* -- 168* 108* 69* < > -- < > -- < > -- < > = values in this interval not displayed. 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 Home Rx is Levemir 25 units bid and Novolog 14 units tid with SSI. Was on / from 03/09 till 05/18 (while incarcerated) Saw Endo in [place] in September,; due for appt? Started on lantus 25 units bid and Humalog 20 units tid here. BS still very high, increased Lantus to 30 units bid and Humalog to 24 unist tid changed to NPH 30 units bid and humalog 30 units qac tid pluc sorrection.Patient refused insulin this am; was NPO for JOANNA; agreed to take NPH 26 units and humalog 10 units x1; will readjust doses as he is so afraid of hypoglycemia and will refuse to take his insulin; will decrease NPH to 26/26 bid and humalog 16 units qac tid plus correction Cellulitis/abscess left ankle, s/p debridement and external fixation of ankle fracture on 06/10 Hyponatremia, renal on board, evidence of SIADH, Na 128(124)(126) IVDU (intravenous drug user) POA: Yes Assessment AND Plan: hx Closed fracture of left ankle POA: Yes Assessment AND Plan: trimalleolar, 3 weeks ago after a fall SIGNATURE: Lucita Del Real MD PATIENT NAME: Tori Cantor DATE: June 14, 2019 TIME: 3:51 PM PAGER: [phone] Normal [facility] CT TIB-FIB W IVCON LTon 11-2 CT TIB-FIB W IVCON LT * * *Final Report* * * DATE OF EXAM: Jun 14 2019 10:21AM [facility] 0037 - CT TIB-FIB W IVCON LT / PROCEDURE REASON: Post-operative / post-procedure assessment, symptomatic * * * * Physician Interpretation * * * * EXAMINATION: CT TIB-FIB W IVCON LT CLINICAL HISTORY: into ankle, assess for abscess, leukocytosis Post-operative / post-procedure assessment, symptomatic Technique: -- Following the administration of intravenous contrast axial images were obtained of the left tibia and fibula. Coronal and sagittal reformats were created. Exam Date: 06/14/2019 10:21 AM Comparison: Radiograph 06/09/2019 Contrast: IV 100 ml of Omnipaque [address] Radiation dose: Integrated Dose-length product (DLP) for this visit = 221 mGy*cm CT Dose Reduction Employed: Automated exposure control(AEC) and iterative recon RESULT: There is fracture of the medial malleolus and also the lateral malleolus. There is abnormal gas density within the distal tibia adjacent to the medial malleolar fracture. This is adjacent to a known region of soft tissue ulceration along the medial aspect of the lower leg. The findings are highly suspicious for osteomyelitis. There are some limitations with regards to assessment of the soft tissues secondary to external fixator. In general there is edema of the subcutaneous and deep soft tissues. There is a possible fluid collection within the deep musculature of the posterior compartment adjacent to the fibula (series 4 image 184 through 268). This measures up to approximately 2 cm AP by 4 cm TV by 13 cm proximal to distal. This is somewhat nonspecific and may either represent postoperative change, edema or abscess. No additional focal fluid collection is seen. IMPRESSION: 1. There is fairly extensive soft tissue injury around the ankle. There is a soft tissue ulceration along the medial aspect. There is ill-defined underlying fluid and edema. This may represent cellulitis. There is gas density within the adjacent soft tissues tracking proximally along the posterior aspect of the tibia. This is somewhat nonspecific in the setting of recent surgery. Infection with a gas-forming organism is not excludable. In addition, there is abnormal gas density within the distal tibia/tibial plafond. This is more so towards the medial aspect and adjacent to the soft tissue ulceration. This is highly suspicious for osteomyelitis. This could be further assessed with MRI. 2. There is a elongated fluid collection within the deep musculature of the posterior compartment/calf. This is detailed above. Abscess would be the diagnosis of exclusion. This could also be further assessed with MRI. 2. Fractures of the medial and lateral malleoli. Av Specialist: BEN Transcribe Date/Time: Jun 14 2019 11:13A Dictated by : THEODORE NGUYEN MD This examination was interpreted and the report reviewed and electronically signed by: THEODORE NGUYEN MD on Jun 14 2019 11:30AM EST Normal [facility] Comprehensive Panelon 2018 ALP [Catalytic activity/Vol] 244 U/L High 45-117 [facility] Comment on above: Performed By: #### P 14 ####[address] [address] Bilirubin [Mass/Vol] 0.6 mg/dL Normal 0.2-1.0 [facility] Comment on above: Performed By: #### P 14 ####[address] [address] Protein [Mass/Vol] 5.8 g/dL Low 6.4-8.2 [facility] Comment on above: Performed By: #### P 14 ####[facility] [place], [place] [address] ALT [Catalytic activity/Vol] 14 U/L Normal 12-78 [facility] Comment on above: Performed By: #### P 14 ####[address] [address] AST [Catalytic activity/Vol] 12 U/L Low 15-37 [facility] Comment on above: Performed By: #### P 14 ####[address], [place] [address] Creatinine [Mass/Vol] 0.64 mg/dL Low 0.67-1.17 [facility] Comment on above: Performed By: #### P 14 ####[facility] [place], [place] [address] Albumin [Mass/Vol] 1.4 g/dL Low 3.4-5.0 [facility] Comment on above: Performed By: #### P 14 ####[facility] [place], [place] [address] Anion gap [Moles/Vol] 10 mmol/L Normal 8-16 [facility] Comment on above: Performed By: #### P 14 ####[address] [address] CO2 [Moles/Vol] 27 mmol/L Normal 21-32 [facility] Comment on above: Performed By: #### P 14 ####[address] [address] Glucose [Mass/Vol] 235 mg/dL High 70-99 [facility] Comment on above: Performed By: #### P 14 ####[address] [address] Urea nitrogen [Mass/Vol] 20 mg/dL High 7-18 [facility] Comment on above: Performed By: #### P 14 ####[address] [address] Calcium [Mass/Vol] 8.6 mg/dL Normal 8.5-10.1 [facility] Comment on above: Performed By: #### P 14 ####[address] [address] Chloride [Moles/Vol] 97 mmol/L Low 98-107 [facility] Comment on above: Performed By: #### P 14 ####[address] [address] Potassium [Moles/Vol] 3.9 mmol/L Normal 3.5-5.1 [facility] Comment on above: Performed By: #### P 14 ####[facility] [place], [place] [address] Sodium [Moles/Vol] 130 mmol/L Low 136-145 [facility] Comment on above: Performed By: #### P 14 ####[address] [address] Hemogramon 06-14-2019 Erythrocyte distribution width (RBC) [Ratio] 13.7 % Normal 11.6-14.4 [facility] Comment on above: Performed By: #### C BC1 ####[facility] [place] [address] Hematocrit (Bld) [Volume fraction] 27.2 % Low 40.1-51.0 [facility] Comment on above: Performed By: #### C BC1 ####[place] [address] Hemoglobin (Bld) [Mass/Vol] 9.2 g/dL Low 13.7-17.5 [facility] Comment on above: Performed By: #### C BC1 ####[place] [address] MCH (RBC) [Entitic mass] 28.7 pg Normal 25.7-32.2 [facility] Comment on above: Performed By: #### C BC1 ####[place] [address] MCHC (RBC) [Mass/Vol] 33.8 % Normal 32.3-36.5 [facility] Comment on above: Performed By: #### C BC1 ####[place] [address] MCV (RBC) [Entitic vol] 84.7 fL Normal 83.2-95.6 [facility] Comment on above: Performed By: #### C BC1 ####[address] [address] Platelet mean volume (Bld) [Entitic vol] 10.6 fL Normal 8.7-12.0 [facility] Comment on above: Performed By: #### C BC1 ####[place] [address] Platelets (Bld) [#/Vol] 410 thou/cmm High 141-365 [facility] Comment on above: Performed By: #### C BC1 ####[facility] [place] [address] RBC (Bld) [#/Vol] 3.21 mil/cmm Low 4.63-6.08 [facility] Comment on above: Performed By: #### C BC1 ####[facility] [place] [address] RDW SD 42.5 fl Normal 36.1-45.8 [facility] Comment on above: Performed By: #### C BC1 ####[place] [address] WBC (Bld) [#/Vol] 33.46 thou/cmm Critically high 4.23-9.07 [facility] Comment on above: Performed By: #### C BC1 ####[place] [address] Hepatitis Acute Panelon 05-21 HAV Ab IgM Negative Normal Negative [facility] Comment on above: Performed By: #### G LMET #### [place] [address] HB Core Ab IgM Negative Normal Negative [facility] Comment on above: Performed By: #### G LMET #### [place] [address] Hepatitis C Ab Positive Abnormal Negative [facility] Comment on above: Performed By: #### G LMET #### [place] [address] Hep.B Surface Ag Negative Normal Negative [facility] Comment on above: Performed By: #### G LMET #### [place] [address] NURSING PROGon 06-14-2019 NURSING PROG HNO ID: [id number] Author: Terry AaronRnRosalina Workman RN Service: Nursing Author Type: Registered Nurse Type: Nursing Progress Note Filed: 06/15/2019 12:17 AM Note Text: Dr. Esteban Hill is OK to give patient Lovenox tonight, but hold dose for tomorrow night, also called dr. Argueta, she is OK to give patient 26 units of NPH when is patient NPO. [facility] PROGRESSon 06-14-2019 PROGRESS HNO ID: [id number] Author: Maryana AaronRn) MATT Grajeda Service: Nursing Author Type: Registered Nurse Type: Progress Notes Filed: 06/14/2019 7:09 PM Note Text: Dr. Garcia called back to floor and notified RN pt does not require vancomycin at this time. [facility] PROGRESS HNO ID: [id number] Author: Maryana AaronRnRosalina Grajeda RN Service: Nursing Author Type: Registered Nurse Type: Progress Notes Filed: 06/14/2019 7:05 PM Note Text: Nursing Progress Note Patient Name: Tori Cantor Patient Location: [place] [id number] 1 Daily Note: RN spoke with Dr. Garcia regarding notes from medical team and infectious disease states patient is on vancomycin, however there is not an active order for vancomycin. Physician to review patient chart, and will place orders himself if he deems necessary. This note was completed by: Maryana Grajeda RN [facility] PROGRESS HNO ID: [id number] Author: Donnell Garcia Service: Infectious Disease Author Type: Physician Type: Progress Notes Filed: 06/14/2019 11:03 PM Note Text: INFECTIOUS DISEASE PROGRESS NOTE Patient Name: Tori Cantor Date: 06/14/2019 ASSESSMENT: 1. 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 LEFT LE cellulitis with purulence - OM of the Tib/ Fib 3. Left ankle tri malleolar fracture with left leg cellulitis and infected fracture blisters placement of external fixator as well as I and D of the superficial abscess and puruelent blisters and wound vac application + MSSA There is NO hardware associated infection as there was no previous hardware 4. Leukocytosis - worse PLAN: Continue Ancef ( since the underlying pathogen is MSSA, does not need vancomycin) Follow up 06/12 Blood Cx- ngtd Follow WBC, monitor for diarrhea Await Ortho review of CT/ Further surgical intervention INTERVAL HISTORY: Afebrile. S/P JOANNA- no vegetations 06/12 Blood Cx ngtd Tolerating Vancomycin, no diarrhea WBC 33 (26). CT Tib/ Fib complete- showing concern for OM of the distal tib/fib, possible calf abscess, gas forming infection- awaiting Ortho re eval MEDICATIONS: reviewed. Current Facility-Administered Medications Medication Dose Route Frequency - HYDROmorphone HCl 0.5 mg injection (DILAUDID) 0.5 mg INTRAVENOUS q 4 H PRN - lisinopril 10 mg tab(s) (ZESTRIL, PRINIVIL) 10 mg ORAL DAILY - pantoprazole DR 40 mg tab(s) (PROTONIX) 40 mg ORAL DAILY - enoxaparin 40 mg injection (LOVENOX) 40 mg SUBCUTANEOUS DAILY - NaCl 0.9% 3-5 mL 3-5 mL INTRAVENOUS q 12 H - ondansetron 4 mg tab(s) (ZOFRAN) 4 mg ORAL q 6 H PRN Or - ondansetron (PF) 4 mg injection (ZOFRAN) 4 mg INTRAVENOUS q 6 H PRN - docusate sodium 100 mg cap(s) (COLACE) 100 mg ORAL BID PRN - bisacodyl 10 mg suppository (DULCOLAX) 10 mg RECTAL DAILY PRN - dextrose 40 % 15 g 15 g ORAL PRN Or - glucagon 1 mg injection (GLUCAGEN) 1 mg INTRAMUSCULAR PRN Or - dextrose 50 % 12.5 g injection 12.5 g INTRAVENOUS PRN - perflutren lipid microspheres 1.1 mg/mL 1.3 mL injection (DEFINITY) 1.3 mL INTRAVENOUS DIRECTED PRN - insulin lispro pen (rapid acting) (HumaLOG KWIKPEN) SUBCUTANEOUS w MEALS - DULoxetine 20 mg cap(s) (CYMBALTA) 20 mg ORAL BID - ceFAZolin iv piggyback 2 g in D5W (iso-osmotic) 100 mL (ANCEF) 2 g INTRAVENOUS q 8 HR - NaCl 0.9% iv infusion 50 mL/hr INTRAVENOUS CONTINUOUS - insulin lispro 30 Units pen (rapid acting) (HumaLOG KWIKPEN) 30 Units SUBCUTANEOUS w MEALS - insulin NPH human 30 Units injection pen (intermediate acting) (NovoLIN N, HumuLIN N) 30 Units SUBCUTANEOUS BID 8A/BEDTIME - pregabalin 150 mg cap(s) (LYRICA) 150 mg ORAL TID - iv contrast (radiology procedure) INTRAVENOUS DIRECTED PRN PHYSICAL EXAM: Vital signs: BP 124/73 Pulse 90 Temp 37.1 ?C (98.8 ?F) (Oral) Resp 18 Ht 175.3 cm (5' 9) Wt 91 kg (200 lb 9.9 oz) SpO2 94% BMI 29.63 kg/m? Temp (24hrs), Av.9 ?C (98.5 ?F), Min:36.4 ?C (97.5 ?F), Max:37.5 ?C (99.5 ?F) General: alert, oriented, NAD Lungs: bilaterally clear to auscultation Heart: regular rate and rhythm Abdomen: soft, non tender, non distended, BS+ Extremities: left foot external fixator in place with thick fat dressing in place, wound vac Skin: no rash IV sites - wnl Lab data: reviewed Recent Labs 06/14/19 0107 06/13/19 0221 06/12/19 0438 WBC 33.46* 26.16* 21.82* HB 9.2* 9.4* 9.7* PLT 410* 350 285 NA 130* 130* 128* K 3.9 3.8 3.7 CO2 27 28 26 BUN 20* 25* 32* CREAT 0.64* 0.71 0.67 AST 12* 17 12* ALT 14 17 20 TBILI 0.6 0.8 1.4* ALKPHOS 244* 282* 307* Microbiology data: reviewed Imaging data: LLE CT Tib/Fib: IMPRESSION: 1. ?There is fairly extensive soft tissue injury around the ankle. ?There is a soft tissue ulceration along the medial aspect. ?There is ill-defined underlying fluid and edema. ?This may represent cellulitis. ? There is gas density within the adjacent soft tissues tracking proximally along the posterior aspect of the tibia. ?This is somewhat nonspecific in the setting of recent surgery. ?Infection with a gas-forming organism is not excludable. ?In addition, there is abnormal gas density within the distal tibia/tibial plafond. ?This is more so towards the medial aspect and adjacent to the soft tissue ulceration. ?This is highly suspicious for osteomyelitis. ?This could be further assessed with MRI. 2. ?There is a elongated fluid collection within the deep musculature of the posterior compartment/calf. ?This is detailed above. ?Abscess would be the diagnosis of exclusion. ?This could also be further assessed with MRI. 2. ?Fractures of the medial and lateral malleoli. [facility] Answering Service: [phone] June 14, 2019 3:52 PM Seen and examined independently. Agree fully w above notes as documented by the RETAINING ROOM CUTTER. Donnell Garcia MD 06/14/2019 11:03 PM [facility] PROGRESS HNO ID: [id number] Author: Puneet Leonardo Service: Hospital Medicine Author Type: Physician Type: Progress Notes Filed: 06/14/2019 5:10 PM Note Text: DEPARTMENT OF HOSPITAL MEDICINE PROGRESS NOTE SERVICE DATE: 06/14/2019 SERVICE TIME: 1:00 PM Hospital Medicine/Primary Attending: Puneet Leonardo MD Subjective CHIEF COMPLAINT: Sepsis INTERVAL HPI: Left lower extremity pain continues to be severe both with what feels like muscle spasms in his lower leg and severe postoperative pain Current Facility-Administered Medications Medication Dose Route Frequency - HYDROmorphone HCl 0.5 mg injection (DILAUDID) 0.5 mg INTRAVENOUS q 4 H PRN - lisinopril 10 mg tab(s) (ZESTRIL, PRINIVIL) 10 mg ORAL DAILY - pantoprazole DR 40 mg tab(s) (PROTONIX) 40 mg ORAL DAILY - enoxaparin 40 mg injection (LOVENOX) 40 mg SUBCUTANEOUS DAILY - NaCl 0.9% 3-5 mL 3-5 mL INTRAVENOUS q 12 H - ondansetron 4 mg tab(s) (ZOFRAN) 4 mg ORAL q 6 H PRN Or - ondansetron (PF) 4 mg injection (ZOFRAN) 4 mg INTRAVENOUS q 6 H PRN - docusate sodium 100 mg cap(s) (COLACE) 100 mg ORAL BID PRN - bisacodyl 10 mg suppository (DULCOLAX) 10 mg RECTAL DAILY PRN - dextrose 40 % 15 g 15 g ORAL PRN Or - glucagon 1 mg injection (GLUCAGEN) 1 mg INTRAMUSCULAR PRN Or - dextrose 50 % 12.5 g injection 12.5 g INTRAVENOUS PRN - perflutren lipid microspheres 1.1 mg/mL 1.3 mL injection (DEFINITY) 1.3 mL INTRAVENOUS DIRECTED PRN - insulin lispro pen (rapid acting) (HumaLOG KWIKPEN) SUBCUTANEOUS w MEALS - DULoxetine 20 mg cap(s) (CYMBALTA) 20 mg ORAL BID - ceFAZolin iv piggyback 2 g in D5W (iso-osmotic) 100 mL (ANCEF) 2 g INTRAVENOUS q 8 HR - NaCl 0.9% iv infusion 50 mL/hr INTRAVENOUS CONTINUOUS - insulin lispro 30 Units pen (rapid acting) (HumaLOG KWIKPEN) 30 Units SUBCUTANEOUS w MEALS - insulin NPH human 30 Units injection pen (intermediate acting) (NovoLIN N, HumuLIN N) 30 Units SUBCUTANEOUS BID 8A/BEDTIME - pregabalin 150 mg cap(s) (LYRICA) 150 mg ORAL TID - iv contrast (radiology procedure) INTRAVENOUS DIRECTED PRN - NaCl 0.9% 1,000 mL iv bolus 1,000 mL INTRAVENOUS ONCE Objective PHYSICAL EXAM: BP 124/73 Pulse 90 Temp (Src) 98.8 (Oral) Resp 18 Ht 5' 9 (1.75m) Wt 200 lb 9.9 oz (91.0kg) SpO2 94% BMI 29.61 kg/(m2). O2 Therapy: Room Air GENERAL: Alert, no distress, cooperative SKIN: Skin color, texture, turgor normal. No rashes or lesions. EYES: PERRLA, EOMI OROPHARYNX: Negative NECK: No jugulovenous distention, LUNGS: CTAB, no wheeze or crackles CARDIAC: Normal S1 and S2; no rubs, murmurs, or gallops ABDOMEN: Abdomen soft, non-tender, BS normal, No masses or organomegaly EXTREMITIES: L lower leg with external fixation device, + edema and tenderness of LLE, NEURO: Cranial nerves III-XII intact Lines, Drains, and Airways Line Peripheral 06/09/19 1545 Left Wrist 20 Gauge 4 days Orthopaedic Device Immobilizer External Fixator -- days DATA: Diagnostic tests reviewed for today's visit: Most recent labs and imaging results. Assessment/Plan Active Problems: #Sepsis 2/2 LLE cellulitis and S. Aureus bacteremia -in setting of L trimalleolar ankle fracture -Ortho consult -IANDD and placement of external fixator?06/10 -continue IV Vanc, repeat blood cultures NGTD day 1 -ID consult ? #S. Aureus bacteremia -continue IV Vanc -monitor cultures -TTE and JOANNA without evidence of endocarditis ? #Hyponatremia- Na improving slowly -stopped IVF,fluid restriction -?daily BMP -needs improved glycemic control -Nephrology consult, appreciate recs -decrease dose of cymbalta? ? #Leukocytosis- 2/2 bacteremia and cellulitis as above. Monitor vitals. Daily CBC. ? #Hyperbilirubinemia and elevated ALP, elevated LFTs -possible 2/2 sepsis? Will trend liver enzymes -check acute hepatitis panel - US RUQ?showed hepatomegaly ? # + Hepatitis C antibody: GI on consult, needs viral RNA load checked as IP or OP # Splenomegaly- GI on consult. Will need outpatient follow up for further hematologic cause. -ID on consult ? #IDDM, uncontrolled, hyperglycemia- ?Discussed importance of compliance. -Endocrine consult -Lantus and lispro adjusted per Endocrine. Continue SSIC ? #HTN-continue home lisinopril ? #Medical noncompliance ? #IVDA: last use 2 months ago after getting out of halfway Resolved Problems: * No resolved hospital problems. * Medication and Non-Pharmacologic VTE Prophylaxis/Anticoagulant s Anticoagulant AND Antiplatelet Medications (From admission, onward) Start Dose Route Frequency Ordered Stop 06/10/192099 enoxaparin 40 mg injection (LOVENOX) (Medical Risk Categories) 40 mg SUBCUTANEOUS DAILY 06/09/192049 -- 06/09/192099 vte non-pharmacologic prophylaxis - none indicated (de,oh) 06/09/192099 activity - mobilize patient (de,wy) VTE Prophylaxis: VTE prophylaxis appropriate Disposition: Extended Care Facility Plan of care discussed with: Provider, RN, Patient SIGNATURE: Puneet Leonardo MD PATIENT NAME: Tori Cantor DATE: June 14, 2019 TIME: 1:00 PM PAGER: [phone] Normal [facility] PROGRESS HNO ID: [id number] Author: Matthias Ndiaye Service: Nephrology Author Type: Physician Type: Progress Notes Filed: 06/14/2019 5:20 PM Note Text: [facility] Nephrology Progress Note Subjective/ 44 year old year old male who we are seeing in consultation for hyponatremia. Interval Hx: Seen and examined States he is attempting to eat more, educated on importance Drinking protein shakes Pain is not well controlled per patient, defer to primary C/o dry mouth from fluid restriction, educated on reason Na is 130 JOANNA performed today Denies any neuro changes, SOB, or chest pain NAEON ROS (-) unless noted above Objective/ 06/13/19 1536 06/13/19 2134 06/14/19 0357 06/14/19 0745 BP: 129/63 116/73 122/74 124/73 Pulse: 96 103 104 90 Resp: 18 18 16 18 Temp: 36.8 ?C (98.2 ?F) 37.1 ?C (98.8 ?F) 37 ?C (98.6 ?F) 37.1 ?C (98.8 ?F) TempSrc: Temporal Temporal Temporal Oral SpO2: 96% 95% 95% 94% Weight: Height: 24HR INTAKE/OUTPUT: Intake/Output Summary (Last 24 hours) at 06/14/2019 1243 Last data filed at 06/14/2019 0745 Gross per 24 hour Intake ? Output 2050 ml Net -2050 ml Constitutional: Alert, awake, no apparent distress Head: AT NC Neck: Supple, No JVD, no thyromegaly EENT: eyes nonicteric, mm dry Cardiovascular: RRR, good S1, S2. No murmurs, clicks, or rubs Respiratory: CTA without any wheezing, rhonchi, or rales Abdomen: soft, NT, ND Extremity: +1 RLE peripheral edema, no tremors Neurological: moves all 4 extremities. No focal neuro deficit Psychological: Cooperative throughout assessment. Current Facility-Administered Medications Medication Dose Route Frequency - [MAR Hold due to Transfer] iv contrast (radiology procedure) INTRAVENOUS DIRECTED PRN - [MAR Hold due to Transfer] pregabalin 150 mg cap(s) (LYRICA) 150 mg ORAL TID - [MAR Hold due to Transfer] ceFAZolin iv piggyback 2 g in D5W (iso-osmotic) 100 mL (ANCEF) 2 g INTRAVENOUS q 8 HR - [MAR Hold due to Transfer] NaCl 0.9% iv infusion 50 mL/hr INTRAVENOUS CONTINUOUS - [MAR Hold due to Transfer] insulin lispro 30 Units pen (rapid acting) (HumaLOG KWIKPEN) 30 Units SUBCUTANEOUS w MEALS - [MAR Hold due to Transfer] insulin NPH human 30 Units injection pen (intermediate acting) (NovoLIN N, HumuLIN N) 30 Units SUBCUTANEOUS BID 8A/BEDTIME - [MAR Hold due to Transfer] perflutren lipid microspheres 1.1 mg/mL 1.3 mL injection (DEFINITY) 1.3 mL INTRAVENOUS DIRECTED PRN - [MAR Hold due to Transfer] insulin lispro pen (rapid acting) (HumaLOG KWIKPEN) SUBCUTANEOUS w MEALS - [MAR Hold due to Transfer] DULoxetine 20 mg cap(s) (CYMBALTA) 20 mg ORAL BID - [MAR Hold due to Transfer] HYDROmorphone HCl 0.5 mg injection (DILAUDID) 0.5 mg INTRAVENOUS q 4 H PRN - [MAR Hold due to Transfer] lisinopril 10 mg tab(s) (ZESTRIL, PRINIVIL) 10 mg ORAL DAILY - [MAR Hold due to Transfer] pantoprazole DR 40 mg tab(s) (PROTONIX) 40 mg ORAL DAILY - [MAR Hold due to Transfer] enoxaparin 40 mg injection (LOVENOX) 40 mg SUBCUTANEOUS DAILY - [MAR Hold due to Transfer] NaCl 0.9% 3-5 mL 3-5 mL INTRAVENOUS q 12 H - [MAR Hold due to Transfer] ondansetron 4 mg tab(s) (ZOFRAN) 4 mg ORAL q 6 H PRN Or - [MAR Hold due to Transfer] ondansetron (PF) 4 mg injection (ZOFRAN) 4 mg INTRAVENOUS q 6 H PRN - [MAR Hold due to Transfer] docusate sodium 100 mg cap(s) (COLACE) 100 mg ORAL BID PRN - [MAR Hold due to Transfer] bisacodyl 10 mg suppository (DULCOLAX) 10 mg RECTAL DAILY PRN - [MAR Hold due to Transfer] dextrose 40 % 15 g 15 g ORAL PRN Or - [MAR Hold due to Transfer] glucagon 1 mg injection (GLUCAGEN) 1 mg INTRAMUSCULAR PRN Or - [MAR Hold due to Transfer] dextrose 50 % 12.5 g injection 12.5 g INTRAVENOUS PRN Data/ CBC, Coags, BMP, Mg, Phos Recent Labs 06/14/19 0107 1122006/12/19437 WBC 33.46* 26.16* 21.82* HB 9.2* 9.4* 9.7* HCT 27.2* 27.9* 28.6* PLT 410* 350 285 NA 130* 130* 128* K 3.9 3.8 3.7 CHLOR 97* 98 98 CO2 27 28 26 BUN 20* 25* 32* CREAT 0.64* 0.71 0.67 GLUC 235* 281* 221* CA 8.6 8.5 8.8 Liver Function, Amylase, AND Lipase Recent Labs 06/14/19 0107 06/13/1922006/12/19437 TPROT 5.8* 5.5* 5.5* ALB 1.4* 1.4* 1.5* ALT 14 17 20 AST 12* 17 12* ALKPHOS 244* 282* 307* TBILI 0.6 0.8 1.4* Cardiac Enzymes Assessment/ 1. Hyponatremia (increased free H2O intake, poor osmole intake, pain with ADH increase) 2. 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 Sepsis 2/2 LLE cellulitis (S. Aureus bacteremia) 4. 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 Intravenous drug abuse 6. Left leg splint s/p ( left ankle # ) Plan/ Na is 130, stable Rate of rise not to exceed 5 meq/24 h Urine lytes are noted Mixed picture is + Continue oral h2o restriction (1200 ml/day) Encourage increase protein intake ( Boost glucose control BID) D/W importance of eating meals Continue to hold the cymbalta ,can increase ADH too Pain control will suppress the ADH release No other changes No indication for use of hypertonic saline or tolvaptan Will follow closely Shar Ludwig APRN.RETAINING ROOM CUTTER [facility] I have seen and examined the pt, agree with above A AND P Same plan Continue fluid erstriction Increase po osmoles Trend Na Will follow ? Gaurav Ndiaye MD PRC team Normal [facility] PROGRESS HNO ID: [id number] Author: Maryana (Rn) MATT Grajeda Service: Nursing Author Type: Registered Nurse Type: Progress Notes Filed: 06/14/2019 4:50 PM Note Text: Nursing Progress Note Patient Name: Tori Cantor [address]: [id number] 1 Daily Note: RN spoke with Dr. Leonardo regarding patient pain medication is only IV at this time, patient reports no bowel movement for 2 weeks and is refusing suppository, and also that lab called with a positive hepatitis C result. Physician to see patient and discuss plan of care. This note was completed by: Maryana Grajeda RN [facility] PROGRESS HNO ID: [id number] Author: Maryana AaronRn) MATT Grajeda Service: Nursing Author Type: Registered Nurse Type: Progress Notes Filed: 06/14/2019 8:02 AM Note Text: Dr. Del Real notified patient is refusing to take his morning insulin, until the endocrinology team has rounded on the patient and spoken with him about insulin dosages. Physician to see patient. [facility] PROGRESS HNO ID: [id number] Author: Angeles Gilbert Service: Orthopaedic Surgery Author Type: Nurse Practitioner Type: Progress Notes Filed: 06/14/2019 7:47 AM Note Text: ORTHOPAEDIC SURGERY DAILY PROGRESS NOTE Patient Name: Tori Cantor Date of Evaluation: 06/14/2019 Admission Date: 06/09/2019 Time of Evaluation: 6:06 AM ASSESSMENT: 44 year old male POD#4 s/p IANDD and external fixation LLE -Leukocytosis: WBC continues to uptrend. Currently 33.45. Obtain ct tib/fib through ankle. Assess for possible abscess. -Pain control -Weight-bearing status:?NWB LLE -Elevate operative extremity. Keep bolster under left knee -Dressings around pin sites clean. No drainage. There was Hibiclens applied at the time of surgery. -Wound vac changed yesterday by wound care. Discharge vac supplied by [facility]. Plan for change again by wound care tomorrow -Management per primary, nephro, endocrine -Ok for dc per GI -Antibiotics per?ID. Leukocytosis. -DVT Prophylaxis: SCD?to RLE,?per primary for chemical prophylaxis. -Discharge planning. Await Ct results. INTERVAL HPI: Patient monitored, no new events overnight. Well Controlled pain. OBJECTIVE: BP 122/74 Pulse 104 Temp 37 ?C (98.6 ?F) (Temporal) Resp 16 Ht 175.3 cm (5' 9) Wt 91 kg (200 lb 9.9 oz) SpO2 95% BMI 29.63 kg/m? Intake/Output Summary (Last 24 hours) No intake/output data recorded. Exam: General: NAD, AAOx3 Extremities: Left Lower Extremity: Ex fix clean, dry and intact. SILT all toes Wiggles all toes Brisk capillary refill all toes Labs: CBC: WBC 33.46 06/14/2019 Hemoglobin 9.2 06/14/2019 Hematocrit 27.2 06/14/2019 Platelet Count 410 06/14/2019 BMP: Sodium 130 06/14/2019 Potassium 3.9 06/14/2019 Chloride 97 06/14/2019 CO2 27 06/14/2019 BUN 20 06/14/2019 Creatinine 0.64 06/14/2019 Glucose 235 06/14/2019 COAGS: APTT 27.6 06/09/2019 PT INR 1.09 06/10/2019 SED RATE/CRP: Sed Rate, Westergren 84 06/08/2019 CRP 23.80 06/08/2019 Velvet Phelps MD PGY-V, Orthopaedic Surgery [facility] Phone #: [phone] Please page [phone] after 5pm or if you need a prompt response 06/14/2019 6:06 AM Agree with resident assessment and plan. Check imaging. Normal [facility] THERAPY NTon 06-14-2019 THERAPY NT HNO ID: [id number] Author: Ines Gunter Service: Physical Therapy Author Type: Self Contained Behavior Unit Teacher Type: Therapy (PT/OT/Speech/Resp) Filed: 06/14/2019 3:42 PM Note Text: ----- Attestation signed by Noelle AaronPt) Aida at 06/14/2019 4:46 PM I reviewed and agree with the documentation corresponding to this therapy visit. SIGNATURE: Noelle Parra, PT DATE: June 14, 2019 TIME: 4:46 PM ----- Physical Therapy Treatment SERVICE DATE: 06/14/2019 SERVICE TIME: 1436 to 1510 ROOM: [id number] Recommended Discharge Disposition: Subacute/SNF Justification For Post Acute Needs: Anticipate that patient will require daily (5x/wk) skilled therapy in a post-acute facility setting at the time of acute hospital discharge;Medically complex PT Recommendations to Nursing: Transfer to/from chair;OOB for Meals;With assist of 1 person Device: Wheeled Walker PT 6 Clicks Score: 10 Precautions/Activity Restrictions: Weight Bearing Restrictions Extremity With Weight Bearing Restricted: Left Lower Extremity Left Lower Extremity Weight Bearing Status: NWB ASSESSMENT : Patient slowly progressing towards goals, demonstrated improved tolerance to sitting on edge of bed and able to progress to stand-pivot with taking several small hops on right lower extremity using wheeled walker to bedside chair. Continue to recommend senior living facility upon discharge to promote independence with all functional mobility/activities of daily living. Patient Disposition at Start of Session: Supine in Bed;Call Hines in Reach Patient Disposition at End of Session: OOB in Chair;Call Hines in Reach Tolerated Full Session Physical Therapy Problem List: Decreased Activity Tolerance;Functional Mobility Impairment;Decreased Range Of Motion;Decreased Strength;Balance Impaired;Pain;Safety Deficits Patient /Caregiver Goals: Go To Rehab Goals for Plan of Care: Transfer supine to/from sit with: Stand By Assistance Transfer sit to/from stand with: Stand By Assistance Ambulate with: Contact Guard Assistance Distance: 20x2 Device: Wheeled Walker Goal: 2x10 reps LLE AROM exercises Progress Toward Goals: Progressing as expected Rehab Potential: Fair PLAN: Treatment Frequency (times per week): 7(3-7) Current admission Treatment Interventions: Education;Balance Training;Joint Mobility;Strengthening;Fu nctional Mobility Training Plan of Care developed with: Patient TREATMENT INTERVENTIONS: Therapy Diagnosis: Reduced mobility-other;Abnormalit ies of gait and mobility-other Interventions Provided: Therapeutic Exercise (05179);Therapeutic Activity (81746) Therapeutic Exercise (75999) Treatment Minutes: 18 1 unit Skilled Intervention(s): Instruction in therapeutic exercise: Patient completed general strengthening exercises in supine (ankle pump on right foot only, quad set, gluteal set, heel slide, hip abd/add,hip adductor squeeze) x 10 reps bilateral lower extremity, with moderate assist for right lower extremity providing facilitation of muscle control, optimal recruitment and alignment Increased time needed for rest breaks between exercises due to pain Therapeutic Activity (23286) Treatment Minutes: 16 1 unit Skilled Intervention(s): Instructed patient in supine to sit pushing with upper extremities to sit up, providing moderate assist with left lower extremity with heavy use of upper extremities on bed rails to assist self Static sitting on edge of bed x 6 minutes due to pain with supine to sit transition Instruction in sit to and from stand technique with proper hand placement and body positioning at edge of bed/chair with bed raised ~2-3 inches providing moderate assist Instruction in stand-pivot using front wheeled walker (wide) providing moderate assist with maximal cueing for sequencing/safety and maintaining non-weight bearing (patient occasionally touches toes on floor) Education with weight bearing restriction (non weight bearing left lower extremity) Total Timed Code Treatment Minutes: 34 Total Treatment Time (minutes): 34 SUBJECTIVE: Current Hospital Course: Chart reviewed and no significant medical updates relevant to therapy were noted Reason for Physical Therapy Consult : eval and treat Relevant Past Medical History: DM 1, L ankle fx, sepsis, IV drug use, HLD, Hep C, GERd Patient Report: C/O 01/26 pain in left leg, wound vac in place Home Environment Patient Lives With: Facility Care(SNF) Assistance Available: 24 Hour Prior Functional Level: Required Assistance Assistance Required With: Self Care;Safety;Laundry;Clean ing;Meals Prior Functional Level Comments: working with PT/OT at facility OBJECTIVE: CURRENT FUNCTIONAL STATUS: Current Functional Mobility Assist Level Additional Information Rolling Supine to Sit Moderate Assistance(for LLE) Sit to Supine Moderate Assistance(to advance LLE) Scooting Contact Guard Assistance Sit to Stand Moderate Assistance(height of bed raised ~2-3 inches) Stand to Sit Moderate Assistance(chair seat raised with several pillows) Bed to Chair Moderate Assistance Bed To Chair Transfer Type: Stand Pivot Bed To Chair Transfer Equipment: Wheeled Walker Toilet/Commode Gait Moderate Assistance Gait Device: Wheeled Walker((wide)) Gait Distance (feet): 1-2 ft Stairs Curb Step Car Transfer Gait Deviations Left Lower Extremity: Other: See comment(NWB) General Gait Deviations: Step length decreased;Flexed trunk posture;Non-functional gait speed(hopping on RLE) JH-HLM: 4: Move to chair / commode Please see discipline specific clinical documentation flowsheet for complete details for this therapy evaluation/treatment. SIGNATURE: Ines Gunter PTA PATIENT NAME: Tori Cantor DATE: June 14, 2019 TIME: 3:35 PM Normal [facility] THERAPY NT HNO ID: [id number] Author: Ira Gutierrez/Diana Rizvi Service: Occupational Therapy Author Type: Occupational Therapist Type: Therapy (PT/OT/Speech/Resp) Filed: 06/14/2019 9:58 AM Note Text: Occupational Therapy Treatment SERVICE DATE: 06/14/2019 SERVICE TIME: 0850 to 0930 ROOM: [place] [id number] Recommended Discharge Disposition: Subacute/SNF Justification For Post Acute Needs: Anticipate that patient will require daily (5x/wk) skilled therapy in a post-acute facility setting at the time of acute hospital discharge;Willing to participate;Motivated OT Recommendations to Nursing: Edge of bed ADL?s;Bedside Commode for Toileting;With assist of 2 people Equipment: Commode-Bedside;Wheeled Walker OT 6 Clicks Score: 15 Precautions/Activity Restrictions: Weight Bearing Restrictions Extremity With Weight Bearing Restricted: Left Lower Extremity Left Lower Extremity Weight Bearing Status: NWB ASSESSMENT: Patient is making good progress towards stated goals, is able to complete self care tasks edge of bed with L LE supported this date. Continue to recommend skilled OT at an inpatient facility at discharge to maximize independence with ADLs. Patient Disposition at Start of Session: Supine in Bed;Call Hines in Reach Patient Disposition at End of Session: Supine in Bed;Call Hines in Reach Tolerated Full Session Fatigue;Pain Occupational Therapy Problem List: Pain;Safety Deficits;Impaired Self Care;Decreased Activity Tolerance;Functional Mobility Impairment Patient /Caregiver Goals: Care For Self Goals for Plan of Care: Upper Body Dressing with: Stand By Assistance Lower Body Bathing with: Minimal Assistance Lower Body Dressing with: Minimal Assistance Toilet Hygiene with: Minimal Assistance Toilet Transfer with: Moderate Assistance(bedside commode) Tolerate (minutes of functional activity): (out of bed activity) Functional Activity with: Moderate Assistance Demonstrate Competence With Education with: (NWB L LE during transfers) Progress Toward Goals: Progressing as expected Rehab Potential: Good PLAN: Treatment Frequency (times per week): 3(1-3x/week) Current admission Treatment Interventions: Education;Self Care / Home Management Plan of Care developed with: Patient TREATMENT INTERVENTIONS: Therapy Diagnosis: Reduced mobility-other;Decreased activities of daily living (ADL) Interventions Provided: Self Fpc Management (81222) Self Fpc Management (81510) Treatment Minutes: 40 3 units Skilled Intervention(s): Pt supine in bed upon arrival. Agreeable to edge of bed ADLs. Contact guard assist for safety L LE during bed mobility to edge. Once edge of bed, provided a chair for pt to rest L LE. Cues for sequencing in hygiene tasks/oral care tasks. Provided with supplies and instruction on completing facial and oral hygiene. Allowed time to complete. Provided instruction, cuing and facilitation for upper body dressing; requires assist for sequencing and safety due to medical lines. Provided instruction, cuing and facilitation for bathing. Provided opportunity to complete upper and lower body bathing. Patient completed task edge of bed, with verbal cues for safety during task. Pt remained in bed at end of session due to transport to [place]. Total Timed Code Treatment Minutes: 40 Total Treatment Time (minutes): 40 SUBJECTIVE: Current Hospital Course: Chart reviewed and no significant medical updates relevant to therapy were noted Reason for Occupational Therapy Consult: external fixator L LE Relevant Past Medical History: DM 1, L ankle fx, sepsis, IV drug use, HLD, Hep C, GERd Patient Report: Pt up in bed upon arrival, agreeable to OT session. IDx2. Reports occasional sharp pain to L ankle. Home Environment Patient Lives With: Facility Care(SNF) Assistance Available: 24 Hour Prior Functional Level: Required Assistance Assistance Required With: Self Care;Safety;Laundry;Clean ing;Meals Prior Functional Level Comments: working with PT/OT at facility OBJECTIVE: Cognition/Communication Deficits Responsiveness: Alert Follows Commands: 3-step Commands;Cueing Needed Cueing to Follow Commands: Minimum Attention Deficits: Distractible Executive Function Deficits: Safety Awareness;Insight to Deficits Insight to Deficits: Minimal impairment Safety Awareness Deficit: Minimal impairment CURRENT FUNCTIONAL STATUS: Current Activities of Daily Living Assist Level Feeding Set Up Grooming Set Up Bathing Upper Body Set Up Bathing Lower Body Moderate Assistance Dressing Upper Body Set Up Dressing Lower Body Moderate Assistance Toileting Moderate Assistance Functional Mobility Assist Level Rolling Supine to Sit Contact Guard Assistance Sit to Supine Contact Guard Assistance Scooting Minimal Assistance Sit to Stand (not yet able to tolerate) Stand to Sit Bed to Chair Toilet/Commode Functional Mobility Please see discipline specific clinical documentation flowsheet for complete details for this therapy evaluation/treatment. SIGNATURE: Ira Rizvi, OTR/L PATIENT NAME: Tori Cantor DATE: June 14, 2019 TIME: 9:50 AM [facility] CASE MANAGEMon 06-13-2019 CASE MANAGEM HNO ID: [id number] Author: Shirley Licea Service: Care Management Author Type: ? Type: Care Mgt Progress Note Filed: 06/13/2019 2:48 PM Note Text: CARE MANAGEMENT PROGRESS NOTE SERVICE DATE: 06/13/2019 SERVICE TIME: 1130 LOS: 4 days IM letter given to patient on [id number]. SIGNATURE: Shirley Licea PATIENT NAME: Tori Cantor DATE: June 13, 2019 TIME: 2:47 PM PAGER/CONTACT #: [phone] [facility] CONSULT PROGon 06-13-2019 CONSULT PROG HNO ID: [id number] Author: Alyssia Toribio Service: Gastroenterology Author Type: Nurse Practitioner Type: Consult Progress Note Filed: 06/13/2019 3:35 PM Note Text: GI CONSULT PROGRESS NOTE SERVICE DATE: 06/13/2019 SERVICE TIME: 3:21 PM CONSULTING SERVICE: Gastroenterology Subjective INTERVAL HISTORY: Patient has no complaints today. He denies any nausea or vomiting. MEDICATIONS: Current Facility-Administered Medications Medication Dose Route Frequency - HYDROmorphone HCl 0.5 mg injection (DILAUDID) 0.5 mg INTRAVENOUS q 4 H PRN - lisinopril 10 mg tab(s) (ZESTRIL, PRINIVIL) 10 mg ORAL DAILY - pantoprazole DR 40 mg tab(s) (PROTONIX) 40 mg ORAL DAILY - enoxaparin 40 mg injection (LOVENOX) 40 mg SUBCUTANEOUS DAILY - NaCl 0.9% 3-5 mL 3-5 mL INTRAVENOUS q 12 H - ondansetron 4 mg tab(s) (ZOFRAN) 4 mg ORAL q 6 H PRN Or - ondansetron (PF) 4 mg injection (ZOFRAN) 4 mg INTRAVENOUS q 6 H PRN - docusate sodium 100 mg cap(s) (COLACE) 100 mg ORAL BID PRN - bisacodyl 10 mg suppository (DULCOLAX) 10 mg RECTAL DAILY PRN - dextrose 40 % 15 g 15 g ORAL PRN Or - glucagon 1 mg injection (GLUCAGEN) 1 mg INTRAMUSCULAR PRN Or - dextrose 50 % 12.5 g injection 12.5 g INTRAVENOUS PRN - perflutren lipid microspheres 1.1 mg/mL 1.3 mL injection (DEFINITY) 1.3 mL INTRAVENOUS DIRECTED PRN - insulin lispro pen (rapid acting) (HumaLOG KWIKPEN) SUBCUTANEOUS w MEALS - DULoxetine 20 mg cap(s) (CYMBALTA) 20 mg ORAL BID - ceFAZolin iv piggyback 2 g in D5W (iso-osmotic) 100 mL (ANCEF) 2 g INTRAVENOUS q 8 HR - NaCl 0.9% iv infusion 50 mL/hr INTRAVENOUS CONTINUOUS - insulin lispro 30 Units pen (rapid acting) (HumaLOG KWIKPEN) 30 Units SUBCUTANEOUS w MEALS - insulin NPH human 30 Units injection pen (intermediate acting) (NovoLIN N, HumuLIN N) 30 Units SUBCUTANEOUS BID 8A/BEDTIME - pregabalin 150 mg cap(s) (LYRICA) 150 mg ORAL TID Objective PHYSICAL EXAM: VITALS:BP 139/78 Pulse 88 Temp 37.1 ?C (98.8 ?F) (Oral) Resp 18 Ht 175.3 cm (5' 9) Wt 91 kg (200 lb 9.9 oz) SpO2 96% BMI 29.63 kg/m? ABDOMEN: Soft, non tender with palpation, no rebound tenderness or rigidity GENERAL: Awake and alert, no distress DATA: Diagnostic tests reviewed for today's visit: Most recent labs and imaging results. WBC (thou/cmm) Date Value 06/13/2019 26.16 (HH) RBC (mil/cmm) Date Value 06/13/2019 3.30 (L) Hemoglobin (g/dL) Date Value 11/11/2016 14.2 HGB (g/dL) Date Value 06/13/2019 9.4 (L) Hematocrit (%) Date Value 06/13/2019 27.9 (L) MCV (fl) Date Value 06/13/2019 84.5 MCH (pg) Date Value 06/13/2019 28.5 MCHC (%) Date Value 06/13/2019 33.7 RDW-CV (%) Date Value 11/11/2016 13.7 Platelet Count (thou/cmm) Date Value 06/13/2019 350 MPV (fl) Date Value 06/13/2019 10.9 Glucose (mg/dL) Date Value 06/13/2019 281 (H) BUN (mg/dL) Date Value 06/13/2019 25 (H) Creatinine (mg/dL) Date Value 06/13/2019 0.71 Sodium (mEq/L) Date Value 06/13/2019 130 (L) Potassium (mEq/L) Date Value 06/13/2019 3.8 Chloride (mEq/L) Date Value 06/13/2019 98 CO2 (mEq/L) Date Value 06/13/2019 28 Protein, Total (g/dL) Date Value 06/13/2019 5.5 (L) Albumin (g/dL) Date Value 06/13/2019 1.4 (L) Calcium (mg/dL) Date Value 06/13/2019 8.5 Alkaline Phosphatase (U/L) Date Value 06/13/2019 282 (H) Bilirubin, Total (mg/dL) Date Value 06/13/2019 0.8 AST (U/L) Date Value 06/13/2019 17 ALT (U/L) Date Value 06/13/2019 17 Hep C Antibody IA (no units) Date Value 11/23/2009 Positive (A) URINALYSIS pH, Arterial Date Value Ref Range Status 04/26/2003 7.43 7.37 - 7.44 units Final Specific [place], Ur Date Value Ref Range Status 09/19/2014 >1.045 (A) 1.005 - 1.030 Final Glucose, Urine Date Value Ref Range Status 09/19/2014 >=1000 (A) Negative Final Bilirubin, Urine Date Value Ref Range Status 09/19/2014 see below (A) Negative Final Comment: Detected (Unable to confirm). Ketones, Urine Date Value Ref Range Status 09/19/2014 40 (A) Negative Final Hemoglobin/Blood,Ur Date Value Ref Range Status 08/08/2009 NEGATIVE NEGATIVE Final Protein, Urine Date Value Ref Range Status 09/19/2014 TRACE (A) Negative Final Urobilinogen, Urine Date Value Ref Range Status 09/19/2014 0.2 0.0 - 1.0 EU/dL Final WBC, Urine Date Value Ref Range Status 09/19/2014 1.2 0.0 - 5.0 /hpf Final Impression/Recommendation s 1.) Elevated alk phos - likely from bone. Alk phos fractionation pending. Alk phos improving. - Monitor LFTs - carb control diet per primary team - IVF, pain and nausea medication - us right upper abdomen showing; Splenomegaly with maximum dimension of 15.9 cm. - alk phos fractionation and acute hepatitis panel pending - Ok for outpatient GI follow up 2.) H/o hepatitis - acute hepatitis panel pending - follow up with GI outpatient Ok for discharge per GI when primary team is ready. LFT's improving, recommend outpatient follow up with GI. Alk phos isoenzyme pending (may take a few days to result) GI will sign off at this time SIGNATURE: Alyssia Toribio APRN.RETAINING ROOM CUTTER PATIENT NAME: Tori Cantor DATE: June 13, 2019 TIME: 3:21 PM PAGER/CONTACT #: [phone] [facility] CONSULT PROG HNO ID: [id number] Author: Jackie AaronRn) MATT Whitlock Service: Wound Care Team Author Type: Registered Nurse Type: Consult Progress Note Filed: 06/13/2019 3:12 PM Note Text: WOUND CARE NURSE CONSULT NOTE SERVICE DATE: 06/13/2019 SERVICE TIME: 1300 REASON FOR VISIT: Wound TIME SPENT (minutes): 45 Wound care consulted by Ortho for left lower leg wound vac dressing. Patient assessed and treated today by ANDREW Goodson, and wilman crop puller. Left lower leg with external fixator intact. Slight drainage around pin sites. Left lower medial/anterior lower leg large superficial open area with larger islands of dry, black eschar. Edema to left lower leg. Serosanguineous drainage. No odor noted. Large wound measuring 28 x 9 x 0.1 cm. Applied adaptic to wound bed, covered with black foam, set at 125mmHg, continuous. Applied 1 piece of adaptic and 2 pieces of black foam, set at 125mmHg, continuous. Reconnected to hospital vac. See note below. Bullae intact to left medial foot/ankle. Open vesicle to left posterior ankle. Applied xeroform, gauze, kerlix. May remain in place until next wound vac dressing change, and xeroform will be changed at that time. Spoke with Autumn, healthcare marketer - have to reapply for precert, plan to go to [facility]. Will be another day or two before able to discharge due to precert. Can hook to home wound vac dressing at the time of discharge. Reconnected to hospital vac today until discharge. Plan to change wound vac dressing next on Thursday06/15/19 if still inpatient. Discharge orders written. A photo was taken of the patient's wound(s)/stoma. Photos can be found under the Get Images tab on [employer]. Photos are uploaded by the wound/ostomy acute care clinical nurse specialist and may not be immediately available for viewing. Contact the wound and ostomy care department with questions. Documentation from Wound Expert can be found in scanned documents. SIGNATURE: Jackie Whitlock RN CWOCN PATIENT NAME: Tori Cantor DATE: June 13, 2019 TIME: 3:04 PM CONTACT#: [id number] [facility] CONSULT PROG HNO ID: [id number] Author: Lucita Del Rela Service: Endocrinology Author Type: Physician Type: Consult Progress Note Filed: 06/13/2019 1:34 PM Note Text: ENDOCRINOLOGY CONSULT PROGRESS NOTE SERVICE DATE: 06/13/2019 SERVICE TIME: 12:45 PM Subjective INTERVAL HPI: Following for DM type 1. Adm with left ankle fracture after a fall, has left leg infection, cellulitis. Notes and orders reviewed. Patient talking on the phone during encounter Diet: DIET CARBOHYDRATE CONTROLLED p.o intake good, following diet. Activity:Bedrest Review of Systems: PAIN ASSESSMENT: c/o left ankle pain (12/27) GENERAL: has fatigue, malaise, no fever/chills RESPIRATORY: Negative for cough, hemoptysis, wheezing, COPD, dyspnea or shortness of breath CARDIOVASCULAR: Negative for chest pain, leg swelling, hypertension, CHF or palpitations GI: No nausea, vomiting, or diarrhea ENDOCRINE: Negative for cold or heat intolerance, polyuria or polydipsia. The remainder of the review of systems is negative. Current Facility-Administered Medications Medication Dose Route Frequency - HYDROmorphone HCl 0.5 mg injection (DILAUDID) 0.5 mg INTRAVENOUS q 4 H PRN - lisinopril 10 mg tab(s) (ZESTRIL, PRINIVIL) 10 mg ORAL DAILY - pantoprazole DR 40 mg tab(s) (PROTONIX) 40 mg ORAL DAILY - enoxaparin 40 mg injection (LOVENOX) 40 mg SUBCUTANEOUS DAILY - NaCl 0.9% 3-5 mL 3-5 mL INTRAVENOUS q 12 H - ondansetron 4 mg tab(s) (ZOFRAN) 4 mg ORAL q 6 H PRN Or - ondansetron (PF) 4 mg injection (ZOFRAN) 4 mg INTRAVENOUS q 6 H PRN - docusate sodium 100 mg cap(s) (COLACE) 100 mg ORAL BID PRN - bisacodyl 10 mg suppository (DULCOLAX) 10 mg RECTAL DAILY PRN - dextrose 40 % 15 g 15 g ORAL PRN Or - glucagon 1 mg injection (GLUCAGEN) 1 mg INTRAMUSCULAR PRN Or - dextrose 50 % 12.5 g injection 12.5 g INTRAVENOUS PRN - perflutren lipid microspheres 1.1 mg/mL 1.3 mL injection (DEFINITY) 1.3 mL INTRAVENOUS DIRECTED PRN - insulin lispro pen (rapid acting) (HumaLOG KWIKPEN) SUBCUTANEOUS w MEALS - DULoxetine 20 mg cap(s) (CYMBALTA) 20 mg ORAL BID - ceFAZolin iv piggyback 2 g in D5W (iso-osmotic) 100 mL (ANCEF) 2 g INTRAVENOUS q 8 HR - NaCl 0.9% iv infusion 50 mL/hr INTRAVENOUS CONTINUOUS - insulin lispro 30 Units pen (rapid acting) (HumaLOG KWIKPEN) 30 Units SUBCUTANEOUS w MEALS - insulin NPH human 30 Units injection pen (intermediate acting) (NovoLIN N, HumuLIN N) 30 Units SUBCUTANEOUS BID 8A/BEDTIME - pregabalin 150 mg cap(s) (LYRICA) 150 mg ORAL TID Objective PHYSICAL EXAM: GENERAL: awake, alert; talking on the phone SKIN: no rash/ bruising OROPHARYNX: moist EXTREMITIES: left leg in a bandage and external fixation frame; right foot charcot's deformity, no ulcers BP 139/78 Pulse 88 Temp (Src) 98.8 (Oral) Resp 18 Ht 5' 9 (1.75m) Wt 200 lb 9.9 oz (91.0kg) SpO2 96% BMI 29.61 kg/(m2). O2 Therapy: Room Air DATA: Diagnostic tests reviewed for today's visit: Most recent labs and imaging results. Last 24 hr BS reviewed. Recent Labs 06/13/19 1205 06/13/19 0612 06/13/19 0221 06/12/19 2110 06/12/19 1658 06/12/19 1051 06/12/19 0438 06/11/19 2120 06/11/19 1535 06/11/19 0745 GLUC -- -- 281* -- -- -- -- 221* -- 275* 415* -- 414* GLUCOSEMETER 182* 267* -- 250* 389* 320* < > -- < > -- -- < > -- < > = values in this interval not displayed. 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 Home Rx is Levemir 25 units bid and Novolog 14 units tid with SSI. Was on /30 from 03/09 till 05/18 (while incarcerated) Saw Endo in [place] in September,; due for appt? Started on lantus 25 units bid and Humalog 20 units tid here. BS still very high, increased Lantus to 30 units bid and Humalog to 24 unist tid changed to NPH 30 units bid and humalog 30 units qac tid pluc sorrection. Cellulitis/abscess left ankle, s/p debridement and external fixation of ankle fracture on 06/10 Hyponatremia, renal on board, evidence of SIADH, Na 128(124)(126) IVDU (intravenous drug user) POA: Yes Assessment AND Plan: hx Closed fracture of left ankle POA: Yes Assessment AND Plan: trimalleolar, 3 weeks ago after a fall SIGNATURE: Lucita Del Real MD PATIENT NAME: Tori Cantor DATE: June 13, 2019 TIME: 1:34 PM PAGER: [phone] Normal [facility] Comprehensive Panelon 2018 ALP [Catalytic activity/Vol] 282 U/L High 45-117 [facility] Comment on above: Performed By: #### P 14 ####[facility] [place], [place] [address] Bilirubin [Mass/Vol] 0.8 mg/dL Normal 0.2-1.0 [facility] Comment on above: Performed By: #### P 14 ####[facility] [place], [place] [address] Protein [Mass/Vol] 5.5 g/dL Low 6.4-8.2 [facility] Comment on above: Performed By: #### P 14 ####[address] [address] ALT [Catalytic activity/Vol] 17 U/L Normal 12-78 [facility] Comment on above: Performed By: #### P 14 ####[address] [address] Creatinine [Mass/Vol] 0.71 mg/dL Normal 0.67-1.17 [facility] Comment on above: Performed By: #### P 14 ####[address] [address] AST [Catalytic activity/Vol] 17 U/L Normal 15-37 [facility] Comment on above: Performed By: #### P 14 ####[address] [address] Albumin [Mass/Vol] 1.4 g/dL Low 3.4-5.0 [facility] Comment on above: Performed By: #### P 14 ####[address] [address] Anion gap [Moles/Vol] 8 mmol/L Normal 8-16 [facility] Comment on above: Performed By: #### P 14 ####[address] [address] Calcium [Mass/Vol] 8.5 mg/dL Normal 8.5-10.1 [facility] Comment on above: Performed By: #### P 14 ####[facility] [place], [place] [address] CO2 [Moles/Vol] 28 mmol/L Normal 21-32 [facility] Comment on above: Performed By: #### P 14 ####[facility] [place], [place] [address] Glucose [Mass/Vol] 281 mg/dL High 70-99 [facility] Comment on above: Performed By: #### P 14 ####[facility] [place], [place] [address] Urea nitrogen [Mass/Vol] 25 mg/dL High 7-18 [facility] Comment on above: Performed By: #### P 14 ####[address] [address] Chloride [Moles/Vol] 98 mmol/L Normal 98-107 [facility] Comment on above: Performed By: #### P 14 ####[address] [address] Potassium [Moles/Vol] 3.8 mmol/L Normal 3.5-5.1 [facility] Comment on above: Performed By: #### P 14 ####[address] [address] Sodium [Moles/Vol] 130 mmol/L Low 136-145 [facility] Comment on above: Performed By: #### P 14 ####[address] [address] Hemogramon 06-13-2019 Erythrocyte distribution width (RBC) [Ratio] 13.5 % Normal 11.6-14.4 [facility] Comment on above: Performed By: #### C BC1 ####[address] [address] Hematocrit (Bld) [Volume fraction] 27.9 % Low 40.1-51.0 [facility] Comment on above: Performed By: #### C BC1 ####[address] [address] Hemoglobin (Bld) [Mass/Vol] 9.4 g/dL Low 13.7-17.5 [facility] Comment on above: Performed By: #### C BC1 ####[facility] [place], [place] [address] MCH (RBC) [Entitic mass] 28.5 pg Normal 25.7-32.2 [facility] Comment on above: Performed By: #### C BC1 ####[address] [address] MCHC (RBC) [Mass/Vol] 33.7 % Normal 32.3-36.5 [facility] Comment on above: Performed By: #### C BC1 ####[address] [address] MCV (RBC) [Entitic vol] 84.5 fL Normal 83.2-95.6 [facility] Comment on above: Performed By: #### C BC1 ####[address] [address] Platelet mean volume (Bld) [Entitic vol] 10.9 fL Normal 8.7-12.0 [facility] Comment on above: Performed By: #### C BC1 ####[address] [address] Platelets (Bld) [#/Vol] 350 thou/cmm Normal 141-365 [facility] Comment on above: Performed By: #### C BC1 ####[address] [address] RBC (Bld) [#/Vol] 3.30 mil/cmm Low 4.63-6.08 [facility] Comment on above: Performed By: #### C BC1 ####[address] [address] RDW SD 41.4 fl Normal 36.1-45.8 [facility] Comment on above: Performed By: #### C BC1 ####[address] [address] WBC (Bld) [#/Vol] 26.16 thou/cmm Critically high 4.23-9.07 [facility] Comment on above: Result Comment: Repe ated AND verified Performed By: #### C BC1 ####[place] [address] NURSING PROGon 06-13-2019 NURSING PROG HNO ID: [id number] Author: Swapna (Rn) MATT Reza Service: Nursing Author Type: Registered Nurse Type: Nursing Progress Note Filed: 06/13/2019 5:01 PM Note Text: Patient eating dinner currently. Patient only wanted 15 units of Humalog at this time due to BS was 108. Still waiting for physician to return this nurses page to make aware. [facility] NURSING PROG HNO ID: [id number] Author: Swapna (Rn) MATT Reza Service: Nursing Author Type: Registered Nurse Type: Nursing Progress Note Filed: 06/13/2019 4:47 PM Note Text: Patient had complained that his blood sugar was low at 15:15, tech checked BS 69. Gave patient randal crackers and milk. At 16:35 BS 108. Patient states that he would only take 10 units of Humalog with dinner for that BS. Did page Dr. Del Real, waiting for a return call back. [facility] PROGRESSon 06-13-2019 PROGRESS HNO ID: [id number] Author: Osito Reyes Service: Hospital Medicine Author Type: Physician Type: Progress Notes Filed: 06/13/2019 4:23 PM Note Text: DEPARTMENT OF HOSPITAL MEDICINE PROGRESS NOTE SERVICE DATE: 06/13/2019 SERVICE TIME: 4:21 PM Hospital Medicine/Primary Attending: Osito Reyes, DO NIGHT AND WEEKEND COVERAGE: After 7pm please page [phone] CHIEF COMPLAINT: L foot pain SUBJECTIVE: Pt seen and examined. Still complains of pain in the left foot/ankle. Denies Cp, SOB, vomiting, diarrhea, headache, fever/chills or abdominal pain. OBJECTIVE: PHYSICAL EXAM: BP 129/63 Pulse 96 Temp (Src) 98.2 (Temporal) Resp 18 Ht 5' 9 (1.75m) Wt 200 lb 9.9 oz (91.0kg) SpO2 96% BMI 29.61 kg/(m2). O2 Therapy: Room Air General - AANDOx3, NAD CV - RRR S1 S2, No M/R/G RESP - CTAB,??No wheezes, ronchi, rales bilaterally ABD - soft, NT, ND +BS EXT -?L foot?with external fixation device, 3(+) distal pulses, no cyanosis, foot warm NEURO - CN II-XII grossly intact MEDICATIONS: Current Facility-Administered Medications Medication Dose Route Frequency - HYDROmorphone HCl 0.5 mg injection (DILAUDID) 0.5 mg INTRAVENOUS q 4 H PRN - lisinopril 10 mg tab(s) (ZESTRIL, PRINIVIL) 10 mg ORAL DAILY - pantoprazole DR 40 mg tab(s) (PROTONIX) 40 mg ORAL DAILY - enoxaparin 40 mg injection (LOVENOX) 40 mg SUBCUTANEOUS DAILY - NaCl 0.9% 3-5 mL 3-5 mL INTRAVENOUS q 12 H - ondansetron 4 mg tab(s) (ZOFRAN) 4 mg ORAL q 6 H PRN Or - ondansetron (PF) 4 mg injection (ZOFRAN) 4 mg INTRAVENOUS q 6 H PRN - docusate sodium 100 mg cap(s) (COLACE) 100 mg ORAL BID PRN - bisacodyl 10 mg suppository (DULCOLAX) 10 mg RECTAL DAILY PRN - dextrose 40 % 15 g 15 g ORAL PRN Or - glucagon 1 mg injection (GLUCAGEN) 1 mg INTRAMUSCULAR PRN Or - dextrose 50 % 12.5 g injection 12.5 g INTRAVENOUS PRN - perflutren lipid microspheres 1.1 mg/mL 1.3 mL injection (DEFINITY) 1.3 mL INTRAVENOUS DIRECTED PRN - insulin lispro pen (rapid acting) (HumaLOG KWIKPEN) SUBCUTANEOUS w MEALS - DULoxetine 20 mg cap(s) (CYMBALTA) 20 mg ORAL BID - ceFAZolin iv piggyback 2 g in D5W (iso-osmotic) 100 mL (ANCEF) 2 g INTRAVENOUS q 8 HR - NaCl 0.9% iv infusion 50 mL/hr INTRAVENOUS CONTINUOUS - insulin lispro 30 Units pen (rapid acting) (HumaLOG KWIKPEN) 30 Units SUBCUTANEOUS w MEALS - insulin NPH human 30 Units injection pen (intermediate acting) (NovoLIN N, HumuLIN N) 30 Units SUBCUTANEOUS BID 8A/BEDTIME - pregabalin 150 mg cap(s) (LYRICA) 150 mg ORAL TID DATA: Diagnostic tests reviewed for today's visit: CBC: Recent Labs 06/13/19220 WBC 26.16* RBC 3.30* HB 9.4* HCT 27.9* PLT 350 MCV 84.5 MCH 28.5 MPV 10.9 RDW 13.5 Coags: No results for input(s): INR, APTT in the last 24 hours. Invalid input(s): PT BMP: Recent Labs 06/13/19220 NA 130* K 3.8 CHLOR 98 CO2 28 BUN 25* CREAT 0.71 GLUC 281* CMP: Recent Labs 06/13/19220 NA 130* K 3.8 CHLOR 98 CO2 28 BUN 25* CREAT 0.71 GLUC 281* TPROT 5.5* CA 8.5 TBILI 0.8 ALKPHOS 282* ALT 17 AST 17 ANION 8 Cardiac Enzymes: No results for input(s): CK, MB, CKMB, TROPT in the last 24 hours. Liver Function, Amylase, Lipase: Recent Labs 06/13/19220 TPROT 5.5* ALB 1.4* ALT 17 AST 17 ALKPHOS 282* TBILI 0.8 MG/PHOS: No results for input(s): MG, P in the last 24 hours. Renal Panel: Recent Labs 06/13/19220 CREAT 0.71 BUN 25* GLUC 281* CA 8.5 CHLOR 98 K 3.8 CO2 28 NA 130* Heme: No results for input(s): RETICP, ABSRETIC, LD, VIKRAM, FE, TIBC, TRANSFERSAT in the last 24 hours. No results found for: UALBCR Assessment/Plan #Sepsis 2/2 LLE cellulitis and S. Aureus bacteremia -in setting of L trimalleolar ankle fracture -Ortho consult -IANDD and placement of external fixator?06/10 -continue IV Vanc, repeat blood cultures 06/12 PENDING -ID consult ? #S. Aureus bacteremia -continue IV Vanc -monitor cultures -TTE performed today and results pending ? #Hyponatremia- Na improving slowly -stopped IVF,fluid restriction - daily BMP -needs improved glycemic control -Nephrology consult, appreciate recs -decrease dose of cymbalta ? #Leukocytosis- 2/2 bacteremia and cellulitis as above. Monitor vitals. Daily CBC. ? #Hyperbilirubinemia and elevated ALP, elevated LFTs -possible 2/2 sepsis? Will trend liver enzymes -check acute hepatitis panel - US RUQ showed hepatomegaly ? #Splenomegaly- GI consult. Will need outpatient follow up for further hematologic cause. -ID on consult ? #IDDM, uncontrolled, hyperglycemia- ?Discussed importance of compliance. -Endocrine consult -Lantus and lispro adjusted per Endocrine. Continue SSIC ? #HTN-continue home lisinopril ? #Medical noncompliance ? #IVDA ? ? VTE Prophylaxis:?Lovenox 40mg Sub Q Daily?? ? Disposition:?SNF likely ? Plan of care discussed with: Provider, RN, Patient SIGNATURE: Osito Reyes DO PATIENT NAME: Tori Cantor DATE: June 13, 2019 TIME: 4:21 PM PAGER/CONTACT #: Team color pager Normal [facility] PROGRESS HNO ID: [id number] Author: Matthias Ndiaye Service: Nephrology Author Type: Physician Type: Progress Notes Filed: 06/13/2019 4:15 PM Note Text: [facility] Progress Note Subjective/ 44 year old year old male who we are seeing in consultation for hyponatremia. Interval Hx: Seen and examined States he is attempting to eat more, educated on importance Drinking protein shakes as they arrive Pain is not well controlled per patient, defer to primary C/o dry mouth from fluid restriction, educated on reason Na improving 130 today Denies any neuro changes, SOB, or chest pain NAEON ROS (-) unless noted above Objective/ 06/12/19 2147 06/13/19 0222 06/13/19 0731 06/13/19 0848 BP: 138/80 133/78 127/65 139/78 Pulse: 89 88 80 88 Resp: 18 18 18 18 Temp: 36.6 ?C (97.9 ?F) 37.9 ?C (100.2 ?F) 37 ?C (98.6 ?F) 37.1 ?C (98.8 ?F) TempSrc: Oral Oral Oral Oral SpO2: 94% 94% 95% 96% Weight: Height: 24HR INTAKE/OUTPUT: Intake/Output Summary (Last 24 hours) at 06/13/2019 1159 Last data filed at 06/13/2019 0800 Gross per 24 hour Intake 1970 ml Output 2200 ml Net -230 ml Constitutional: Alert, awake, no apparent distress Head: AT NC Neck: Supple, No JVD, no thyromegaly Cardiovascular: RRR, good S1, S2. No murmurs, clicks, or rubs Respiratory: CTA without any wheezing, rhonchi, or rales Abdomen: soft, NT, ND Extremity: +1 RLE peripheral edema, no tremors Neurological: moves all 4 extremities. No focal neuro deficit Psychological: Cooperative throughout assessment. Current Facility-Administered Medications Medication Dose Route Frequency - ceFAZolin iv piggyback 2 g in D5W (iso-osmotic) 100 mL (ANCEF) 2 g INTRAVENOUS q 8 HR - NaCl 0.9% iv infusion 50 mL/hr INTRAVENOUS CONTINUOUS - insulin lispro 30 Units pen (rapid acting) (HumaLOG KWIKPEN) 30 Units SUBCUTANEOUS w MEALS - insulin NPH human 30 Units injection pen (intermediate acting) (NovoLIN N, HumuLIN N) 30 Units SUBCUTANEOUS BID 8A/BEDTIME - perflutren lipid microspheres 1.1 mg/mL 1.3 mL injection (DEFINITY) 1.3 mL INTRAVENOUS DIRECTED PRN - insulin lispro pen (rapid acting) (HumaLOG KWIKPEN) SUBCUTANEOUS w MEALS - DULoxetine 20 mg cap(s) (CYMBALTA) 20 mg ORAL BID - HYDROmorphone HCl 0.5 mg injection (DILAUDID) 0.5 mg INTRAVENOUS q 4 H PRN - pregabalin 150 mg cap(s) (LYRICA) 150 mg ORAL DAILY - lisinopril 10 mg tab(s) (ZESTRIL, PRINIVIL) 10 mg ORAL DAILY - pantoprazole DR 40 mg tab(s) (PROTONIX) 40 mg ORAL DAILY - enoxaparin 40 mg injection (LOVENOX) 40 mg SUBCUTANEOUS DAILY - NaCl 0.9% 3-5 mL 3-5 mL INTRAVENOUS q 12 H - ondansetron 4 mg tab(s) (ZOFRAN) 4 mg ORAL q 6 H PRN Or - ondansetron (PF) 4 mg injection (ZOFRAN) 4 mg INTRAVENOUS q 6 H PRN - docusate sodium 100 mg cap(s) (COLACE) 100 mg ORAL BID PRN - bisacodyl 10 mg suppository (DULCOLAX) 10 mg RECTAL DAILY PRN - dextrose 40 % 15 g 15 g ORAL PRN Or - glucagon 1 mg injection (GLUCAGEN) 1 mg INTRAMUSCULAR PRN Or - dextrose 50 % 12.5 g injection 12.5 g INTRAVENOUS PRN Data/ CBC, Coags, BMP, Mg, Phos Recent Labs 06/13/1922006/12/1943706/11/19211906/11/19 0745 WBC 26.16* 21.82* -- -- 24.89* HB 9.4* 9.7* -- -- 9.9* HCT 27.9* 28.6* -- -- 28.8* PLT 350 285 -- -- 255 NA 130* 128* 128* < > 126* K 3.8 3.7 4.0 < > 4.4 CHLOR 98 98 97* < > 95* CO2 28 26 26 < > 22 BUN 25* 32* 34* < > 40* CREAT 0.71 0.67 0.68 < > 0.81 GLUC 281* 221* 275* < > 414* CA 8.5 8.8 8.6 < > 8.6 < > = values in this interval not displayed. Liver Function, Amylase, AND Lipase Recent Labs 06/13/1922006/12/1943706/11/19 0745 TPROT 5.5* 5.5* 5.7* ALB 1.4* 1.5* 1.7* ALT 17 20 27 AST 17 12* 10* ALKPHOS 282* 307* 322* TBILI 0.8 1.4* 2.1* Cardiac Enzymes Assessment/ 1. Hyponatremia (increased free H2O intake, poor osmole intake, pain with ADH increase) 2. 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 Sepsis 2/2 LLE cellulitis (S. Aureus bacteremia) 4. 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 Intravenous drug abuse 6. Left leg splint s/p ( left ankle # ) Plan/ Na is improving (130 today) Goal for tomorrow (132-135) Urine lytes are noted Mixed picture is + Continue oral H20 restriction (1200 ml/day) Encourage increase protein intake ( Ensure BID) D/W importance of eating meals Hold the cymbalta ,can increase ADH too Pain control will suppress the ADH release Rate of rise not to exceed 5 meq/24 h Follow the Na BID No other changes No indication for use of hypertonic saline or tolvaptan Will follow closely Shar Ludwig APRN.RETAINING ROOM CUTTER [facility] I have seen and examined the patient, agree with above documented A AND P. Same plan Maintain the fluid restriction Na improving Will follow closely Gaurav Ndiaye MD [facility] team Normal [facility] PROGRESS HNO ID: [id number] Author: Donnell Garcia Service: Infectious Disease Author Type: Physician Type: Progress Notes Filed: 06/13/2019 10:21 PM Note Text: INFECTIOUS DISEASE PROGRESS NOTE Patient Name: Tori Cantor Date: 06/13/2019 ASSESSMENT: 1. 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 LEFT LE cellulitis with purulence 3. Left ankle tri malleolar fracture with left leg cellulitis and infected fracture blisters placement of external fixator as well as I and D of the superficial abscess and puruelent blisters and wound vac application + MSSA There is NO hardware associated infection as there was no previous hardware 4. Leukocytosis - worse PLAN: Continue Vancomycin Follow up 06/12 Blood Cx TTE suboptimal, will need JOANNA Follow WBC, monitor for diarrhea INTERVAL HISTORY: Afebrile. No acute complaints 06/12 Blood Cx in process. TTE today Tolerating Vancomycin, no diarrhea WBC 26 (21) MEDICATIONS: reviewed. Current Facility-Administered Medications Medication Dose Route Frequency - HYDROmorphone HCl 0.5 mg injection (DILAUDID) 0.5 mg INTRAVENOUS q 4 H PRN - pregabalin 150 mg cap(s) (LYRICA) 150 mg ORAL DAILY - lisinopril 10 mg tab(s) (ZESTRIL, PRINIVIL) 10 mg ORAL DAILY - pantoprazole DR 40 mg tab(s) (PROTONIX) 40 mg ORAL DAILY - enoxaparin 40 mg injection (LOVENOX) 40 mg SUBCUTANEOUS DAILY - NaCl 0.9% 3-5 mL 3-5 mL INTRAVENOUS q 12 H - ondansetron 4 mg tab(s) (ZOFRAN) 4 mg ORAL q 6 H PRN Or - ondansetron (PF) 4 mg injection (ZOFRAN) 4 mg INTRAVENOUS q 6 H PRN - docusate sodium 100 mg cap(s) (COLACE) 100 mg ORAL BID PRN - bisacodyl 10 mg suppository (DULCOLAX) 10 mg RECTAL DAILY PRN - dextrose 40 % 15 g 15 g ORAL PRN Or - glucagon 1 mg injection (GLUCAGEN) 1 mg INTRAMUSCULAR PRN Or - dextrose 50 % 12.5 g injection 12.5 g INTRAVENOUS PRN - perflutren lipid microspheres 1.1 mg/mL 1.3 mL injection (DEFINITY) 1.3 mL INTRAVENOUS DIRECTED PRN - insulin lispro pen (rapid acting) (HumaLOG KWIKPEN) SUBCUTANEOUS w MEALS - DULoxetine 20 mg cap(s) (CYMBALTA) 20 mg ORAL BID - ceFAZolin iv piggyback 2 g in D5W (iso-osmotic) 100 mL (ANCEF) 2 g INTRAVENOUS q 8 HR - NaCl 0.9% iv infusion 50 mL/hr INTRAVENOUS CONTINUOUS - insulin lispro 30 Units pen (rapid acting) (HumaLOG KWIKPEN) 30 Units SUBCUTANEOUS w MEALS - insulin NPH human 30 Units injection pen (intermediate acting) (NovoLIN N, HumuLIN N) 30 Units SUBCUTANEOUS BID 8A/BEDTIME PHYSICAL EXAM: Vital signs: BP 139/78 Pulse 88 Temp 37.1 ?C (98.8 ?F) (Oral) Resp 18 Ht 175.3 cm (5' 9) Wt 91 kg (200 lb 9.9 oz) SpO2 96% BMI 29.63 kg/m? Temp (24hrs), Av.9 ?C (98.5 ?F), Min:36.4 ?C (97.5 ?F), Max:37.5 ?C (99.5 ?F) General: alert, oriented, NAD Lungs: bilaterally clear to auscultation Heart: regular rate and rhythm Abdomen: soft, non tender, non distended, BS+ Extremities: left foot external fixator in place with thick fat dressing in place Skin: no rash IV sites - wnl Lab data: reviewed Recent Labs 06/13/19 0221 06/12/19 0438 06/11/19 2120 06/11/19 1535 06/11/19 0745 WBC 26.16* 21.82* -- -- 24.89* HB 9.4* 9.7* -- -- 9.9* PLT 350 285 -- -- 255 NA 130* 128* 128* 124* 126* K 3.8 3.7 4.0 4.9 4.4 CO2 28 26 26 21 22 BUN 25* 32* 34* 37* 40* CREAT 0.71 0.67 0.68 0.71 0.81 AST 17 12* -- -- 10* ALT 17 20 -- -- 27 TBILI 0.8 1.4* -- -- 2.1* ALKPHOS 282* 307* -- -- 322* VANCORA -- -- -- 16.7 -- Microbiology data: reviewed Imaging data: reviewed [facility] Answering Service: [phone] June 13, 2019 12:02 PM Seen and examined independently. Agree fully w above notes as documented by the RETAINING ROOM CUTTER. Donnell Garcia MD 06/13/2019 10:21 PM [facility] PROGRESS HNO ID: [id number] Author: Gareth Uriarte Service: Orthopaedic Surgery Author Type: Physician Type: Progress Notes Filed: 06/13/2019 8:35 AM Note Text: ORTHOPAEDIC SURGERY DAILY PROGRESS NOTE Patient Name: Tori Cantor Date of Evaluation: 06/13/2019 Admission Date: 06/09/2019 Time of Evaluation: 6:04 AM ASSESSMENT: 44 year old male POD#3 s/p IANDD left tibia wounds and application of external fixation for left ankle PLAN: -Pain control -Weight-bearing status: NWB LLE -Elevate operative extremity. Keep bolster under left knee for comfort -Wound vac change today to homegoing vac. Supplied by [employer]. 25 cm x 10 cm x 0.5 cm at greatest diameter. Consult in place to wound center. May apply without interference with ex-fix. -Management per primary, nephro, endocrine -Antibiotics per ID -Follow up intraop cultures: +MSSA x 2 -DVT Prophylaxis: SCD to RLE, per primary for chemical prophylaxis (Lovenox 40 mg daily) -Discharge planning. Okay for discharge from ortho standpoint when medically stable. No plans for surgical intervention by orthopedics this admission. INTERVAL HPI: Patient monitored, no new events overnight. OBJECTIVE: BP 133/78 Pulse 88 Temp 37.9 ?C (100.2 ?F) (Oral) Resp 18 Ht 175.3 cm (5' 9) Wt 91 kg (200 lb 9.9 oz) SpO2 94% BMI 29.63 kg/m? Intake/Output Summary (Last 24 hours) 06/120 - 06/13 0659 In: 600 [PO:100; IV:500] Out: 1000 [Urine:1000] Exam: General: NAD, AAOx3 Extremities: Left Lower Extremity: Ex fix clean, dry and intact. SILT all toes Wiggles all toes Brisk capillary refill all toes Labs: CBC: WBC 26.16 06/13/2019 Hemoglobin 9.4 06/13/2019 Hematocrit 27.9 06/13/2019 Platelet Count 350 06/13/2019 BMP: Sodium 130 06/13/2019 Potassium 3.8 06/13/2019 Chloride 98 06/13/2019 CO2 28 06/13/2019 BUN 25 06/13/2019 Creatinine 0.71 06/13/2019 Glucose 281 06/13/2019 COAGS: APTT 27.6 06/09/2019 PT INR 1.09 06/10/2019 SED RATE/CRP: Sed Rate, Westergren 84 06/08/2019 CRP 23.80 06/08/2019 Velvet Phelps MD PGY-V, Orthopaedic Surgery [facility] Phone #: [phone] Please page [phone] after 5pm or if you need a prompt response 06/13/2019 6:04 AM Attending Note I personally saw and examined the patient. I reviewed the resident's note. I agree with the resident's assessment and plan unless otherwise noted. WBC increased, clinically looks ok. Continue wound vac. Discussed with patient and nurse. Signature: Gareth Uriarte MD Date: 06/13/2019 Time: 8:34 AM Normal [facility] THERAPY NTon 06-13-2019 THERAPY NT HNO ID: [id number] Author: Ira (Otr/L) Belkys Service: Occupational Therapy Author Type: Occupational Therapist Type: Therapy (PT/OT/Speech/Resp) Filed: 06/13/2019 4:15 PM Note Text: Occupational Therapy Evaluation SERVICE DATE: 06/13/2019 SERVICE TIME: 1505 to 1525 ROOM: [id number] Recommended Discharge Disposition: Subacute/SNF Justification For Post Acute Needs: Anticipate that patient will require daily (5x/wk) skilled therapy in a post-acute facility setting at the time of acute hospital discharge;Willing to participate;Motivated OT Recommendations to Nursing: Edge of bed ADL?s;Bedside Commode for Toileting;With assist of 2 people Equipment: Commode-Bedside;Wheeled Walker OT 6 Clicks Score: 15 Precautions/Activity Restrictions: Weight Bearing Restrictions Extremity With Weight Bearing Restricted: Left Lower Extremity Left Lower Extremity Weight Bearing Status: NWB ASSESSMENT: Patient presents with L tibia wounds, s/p external fixation application. Requires skilled OT for addressing deficits related to self care, activity tolerance, safety, post op education and transfers for increased independence with ADLs. Patient Disposition at Start of Session: Supine in Bed;Call Hines in Reach Patient Disposition at End of Session: Supine in Bed;Call Hines in Reach Tolerance Limited By Fatigue;Pain Occupational Therapy Problem List: Pain;Safety Deficits;Impaired Self Care;Decreased Activity Tolerance;Functional Mobility Impairment Patient /Caregiver Goals: Care For Self Goals for Plan of Care: Upper Body Dressing with: Stand By Assistance Lower Body Bathing with: Minimal Assistance Lower Body Dressing with: Minimal Assistance Toilet Hygiene with: Minimal Assistance Toilet Transfer with: Moderate Assistance(bedside commode) Tolerate (minutes of functional activity): 25 Functional Activity with: Moderate Assistance Demonstrate Competence With Education with: Verbal Cues Only(NWB L LE) Rehab Potential: Good PLAN: Treatment Frequency (times per week): 3(1-3x/week) Current admission Treatment Interventions: Education;Self Care / Home Management Plan of Care developed with: Patient TREATMENT INTERVENTIONS: Therapy Diagnosis: Reduced mobility-other;Decreased activities of daily living (ADL) Interventions Provided: Evaluation $ Evaluation-High (24688) Billed Units: 1 unit OT Evaluation High Complexity: Occupational Profile - Expansive review of patient's medical record completed including patient's physical, cognitive, and psychosocial history (please see current hospital course of evaluation) . Occupational Performance - Pt presents with deficits in feeding, grooming, UE bathing/dressing, LE bathing/dressing, functional mobility, functional transfers, decreased safety awareness, decreased insight into deficits Complexity in Clinical Decision Making - The extent of clinical reasoning was complex, multiple treatment options present for the patient, need for modification during the evaluation was significant, the following comorbidities affect patient's occupational performance: DM 1, DKA, HTN, IV drug user, L ankle fx. Total Treatment Time (minutes): 20 SUBJECTIVE: Current Hospital Course: Chart reviewed; Presented with L tibia wounds, L ankle fx. s/p application of external fixator, debridement and application of wound vac on 06/10/19. Pt is NWB post op. PAST MEDICAL HISTORY Diagnosis Date - Diabetes (HCC) - DKA (diabetic ketoacidosis) (HCC) 08/2014 - Hyperglycemia 05/27/2019 - Hypertension - IVDU (intravenous drug user) 05/27/2019 - Lactose intolerance 07/30/2016 - Left ankle joint deformity 05/27/2019 - Pancreatitis 08/2014 - Tobacco abuse 05/27/2019 - Trimalleolar fracture of left ankle PAST SURGICAL HISTORY Procedure Laterality Date - NONE Reason for Occupational Therapy Consult: external fixator L LE Relevant Past Medical History: DM 1, L ankle fx, sepsis, IV drug use, HLD, Hep C, GERd Patient Report: Patient in bed upon arrival, agreeable to OT session. IDx2. Receptive to information provided, motivated to get better. Home Environment Patient Lives With: Facility Care(SNF) Assistance Available: 24 Hour Prior Functional Level: Required Assistance Assistance Required With: Self Care;Safety;Laundry;Clean ing;Meals Prior Functional Level Comments: working with PT/OT at facility OBJECTIVE: Cognition/Communication Deficits Responsiveness: Alert Follows Commands: 3-step Commands;Cueing Needed Cueing to Follow Commands: Minimum Attention Deficits: Distractible Executive Function Deficits: Safety Awareness;Insight to Deficits Insight to Deficits: Moderate impairment Safety Awareness Deficit: Moderate impairment CURRENT FUNCTIONAL STATUS: Current Activities of Daily Living Assist Level Feeding Set Up Grooming Minimal Assistance Bathing Upper Body Minimal Assistance Bathing Lower Body Maximal Assistance Dressing Upper Body Minimal Assistance Dressing Lower Body Maximal Assistance Toileting Maximal Assistance Functional Mobility Assist Level Rolling Supine to Sit Moderate Assistance Sit to Supine Moderate Assistance Scooting Sit to Stand (not yet able to tolerate) Stand to Sit Bed to Chair Toilet/Commode Functional Mobility Range of Motion: WFL Strength: WFL Please see discipline specific clinical documentation flowsheet for complete details for this therapy evaluation/treatment. SIGNATURE: ANGELA Carmen/Jens PATIENT NAME: Tori Cantor DATE: June 13, 2019 TIME: 4:10 PM Normal [facility] THERAPY NT HNO ID: [id number] Author: oRsalind AaronPtRosalina Meyers Service: Physical Therapy Author Type: Physical Therapist Type: Therapy (PT/OT/Speech/Resp) Filed: 06/13/2019 4:10 PM Note Text: Physical Therapy Evaluation SERVICE DATE: 06/13/2019 SERVICE TIME: 1335 to 1414 ROOM: [id number] Recommended Discharge Disposition: Subacute/SNF Justification For Post Acute Needs: Anticipate that patient will require daily (5x/wk) skilled therapy in a post-acute facility setting at the time of acute hospital discharge;Medically complex PT Recommendations to Nursing: Utilize bed in chair position PT 6 Clicks Score: 10 Precautions/Activity Restrictions: Weight Bearing Restrictions;Lines/Tubes/ Drains Extremity With Weight Bearing Restricted: Left Lower Extremity Left Lower Extremity Weight Bearing Status: NWB ASSESSMENT : This patient was admitted for sepsis--poorly/ non-healing left ankle fracture--now with ex-fix and wound vac--s/p IANDD, has the past medical history of DM with peripheral neuropathy, right foot Charcot impacting current functional level, as well as the social factors complicating the discharge of was at [facility] [employer] and plan is to return. This patient is below baseline functioning and will benefit from continued skilled therapy in the hospital for treatment of the following body systems/impairments: musculoskeletal and neuromuscular for functional mobility, balance and endurance Patient Disposition at Start of Session: Supine in Bed;Call Hines in Reach Patient Disposition at End of Session: Supine in Bed;Call Hines in Reach Tolerance Limited By Pain;Fatigue Physical Therapy Problem List: Decreased Activity Tolerance;Functional Mobility Impairment;Decreased Range Of Motion;Decreased Strength;Balance Impaired;Pain;Safety Deficits Patient /Caregiver Goals: Go To Rehab Goals for Plan of Care: Transfer supine to/from sit with: Stand By Assistance Transfer sit to/from stand with: Stand By Assistance Ambulate with: Contact Guard Assistance Distance: 20x2 Device: Wheeled Walker Goal: 2x10 reps LLE AROM exercises Rehab Potential: Fair PLAN: Treatment Frequency (times per week): 7(3-7) Current admission Treatment Interventions: Education;Balance Training;Joint Mobility;Strengthening;Fu nctional Mobility Training Plan of Care developed with: Patient TREATMENT INTERVENTIONS: Therapy Diagnosis: Reduced mobility-other;Abnormalit ies of gait and mobility-other Interventions Provided: Evaluation;Therapeutic Activity (96923) $ Evaluation-Moderate (55037) Billed Units: 1 unit History and examination of body systems see assessment section above. This patient?s clinical presentation is evovling. The patient required a moderate complexity evaluation. Extensive chart review regarding previous admission and this admission Therapeutic Activity (84598) Treatment Minutes: 25 2 units Skilled Intervention(s): Educated pt on role of PT in acute care--discussed POC, goals and D/C rec--plan is to go back to [facility] at D/C Educated on safety and fall prevention--use call light and wait for assist Educated on negative effects of bed rest--encouraged frequent position changes Educated on DVT prevention--using SCDs as ordered Instruct in hand placement and safety with bed mobility needed mod A to advance LLE to complete--instruct to reach across body for railing and roll to side and then sit up using UEs for support Instruct in hand placement and safety with transfers needed mod A to attempt standing--but had too much pain Pt concerned about care at SNF and was putting much weight through LLE because they did not help when needed--educated pt about different ways to mobilize and maintain NWB LLE Pt sat in various long sit type positions with LLE supported on bed--several min; also sat edge of bed with LEs in dependent position for couple min Total Timed Code Treatment Minutes: 25 Total Treatment Time (minutes): 39 SUBJECTIVE: Current Hospital Course: Chart reviewed; see assessment section Reason for Physical Therapy Consult : eval and treat Relevant Past Medical History: DM with peripheral neuropathy, charcot Right foot(L trimalleolar fx) Patient Report: c/o pain and increases with trying to stand Home Environment Patient Lives With: Facility Care([facility]) Assistance Available: 24 Hour Prior Functional Level: Required Assistance Assistance Required With: Cleaning;Laundry;Meals;Sh opping;Transportation;Nicol f Care;Medication Management Prior Functional Level Comments: working with PT/OT at facility OBJECTIVE: Range of Motion: ROM Limitation Comments ROM Limitation Comments: LLE limited Strength: Strength Limitation Comments Strength Limitation Comments: LLE limited CURRENT FUNCTIONAL STATUS: Current Functional Mobility Assist Level Additional Information Rolling Supine to Sit Moderate Assistance(to advance LLE) Sit to Supine Moderate Assistance(to advance LLE) Scooting Sit to Stand (unable to tolerate d/t pain) Stand to Sit Bed to Chair Toilet/Commode Gait Stairs Curb Step Car Transfer -[facility]: 3: Sit at edge of bed Please see discipline specific clinical documentation flowsheet for complete details for this therapy evaluation/treatment. SIGNATURE: Rosalind Meyers PT PATIENT NAME: Tori Cantor DATE: June 13, 2019 TIME: 2:41 PM Normal [facility] Basic Panelon 06-12-2019 Creatinine [Mass/Vol] 0.68 mg/dL Normal 0.67-1.17 [facility] Comment on above: Performed By: #### P 8 ####[facility] [place], [place] [address] Urea nitrogen [Mass/Vol] 34 mg/dL High 7-18 [facility] Comment on above: Performed By: #### P 8 ####[facility] [place], [place] [address] Anion gap [Moles/Vol] 9 mmol/L Normal 8-16 [facility] Comment on above: Performed By: #### P 8 ####[address] [address] Calcium [Mass/Vol] 8.6 mg/dL Normal 8.5-10.1 [facility] Comment on above: Performed By: #### P 8 ####[address] [address] CO2 [Moles/Vol] 26 mmol/L Normal 21-32 [facility] Comment on above: Performed By: #### P 8 ####[facility] [place], [place] [address] Glucose [Mass/Vol] 275 mg/dL High 70-99 [facility] Comment on above: Performed By: #### P 8 ####[facility] [place], [place] [address] Chloride [Moles/Vol] 97 mmol/L Low 98-107 [facility] Comment on above: Performed By: #### P 8 ####[address] [address] Potassium [Moles/Vol] 4.0 mmol/L Normal 3.5-5.1 [facility] Comment on above: Performed By: #### P 8 ####[address] [address] Sodium [Moles/Vol] 128 mmol/L Low 136-145 [facility] Comment on above: Performed By: #### P 8 ####[place] [address] CONSULTon 06-12-2019 CONSULT HNO ID: [id number] Author: Sandra Black Service: Gastroenterology Author Type: Physician Type: Consults Filed: 06/12/2019 1:44 PM Note Text: CONSULT: GASTRENTEROLOGY SERVICE SERVICE DATE: 06/12/2019 SERVICE TIME: 1:28 PM REASON FOR CONSULT: abnormal LFT's REQUESTING PHYSICIAN: PRIMARY CARE PHYSICIAN: Elizabeth Nelson DO Subjective Mr. Cantor is a 44 year old male who presents for presents with L foot cellulitis and history external fixation of ankle recently in this admission, wound vac applicationn. GI consult for isolated alkaline phophatase elevation. Patient has history of hepatitis C FUNCTIONAL STATUS: Independent PAST MEDICAL HISTORY Diagnosis Date - Diabetes (HCC) - DKA (diabetic ketoacidosis) (HCC) 08/2014 - Hyperglycemia 05/27/2019 - Hypertension - IVDU (intravenous drug user) 05/27/2019 - Lactose intolerance 07/30/2016 - Left ankle joint deformity 05/27/2019 - Pancreatitis 08/2014 - Tobacco abuse 05/27/2019 - Trimalleolar fracture of left ankle PAST SURGICAL HISTORY Procedure Laterality Date - NONE FAMILY HISTORY Problem Relation Age of Onset - Hypertension Mother - Diabetes Mother - Stroke Mother - Heart Mother CHF - Cataract Mother - Hypertension Father - COPD Father - Emphysema Father Social History Tobacco Use - Smoking status: Current Every Day Smoker Packs/day: 1.00 Types: Cigarettes - Smokeless tobacco: Never Used Substance Use Topics - Alcohol use: Yes Comment: socially - Drug use: Yes Types: Cocaine, Amphetamines Comment: hist of cocaine and marajuana use, fentanyl insulin detemir (LEVEMIR U-100 INSULIN SUBCUTANEOUS), Inject 20 Units subcutaneously twice daily., Disp: , Rfl: acetaminophen (TYLENOL) 325 mg tablet, Take 2 tablets by mouth every 6 hours as needed., Disp: , Rfl: insulin lispro (HUMALOG KWIKPEN INSULIN) 100 unit/mL inpn, Inject 14 Units subcutaneously three times daily before meals. (Patient taking differently: Inject 14 Units subcutaneously three times daily before meals. If glucose is 300 or higher ), Disp: , Rfl: lisinopril (ZESTRIL, PRINIVIL) 10 mg tablet, Take 1 tablet by mouth once daily for 15 days., Disp: 15 tablet, Rfl: 0, 05/26/[address] (PROTONIX) 40 mg tablet, Take 40 mg by mouth once daily. , Disp: , Rfl: , 05/26/2019 Lancets lancets, Use as instructed, Disp: 100 Each, Rfl: 11, Taking Insulin Dudley, Disposable, (BD ULTRAFINE III MINI PEN) 31 gauge x 3/16 ndle, USE WITH INSULIN PENS 4TIMES DAILY, Disp: 400 Each, Rfl: 3, Taking blood sugar diagnostic (ONETOUCH ULTRA TEST) test strip, CHECK BLOOD SUGARS 6 TIMES DAILY, Disp: 200 Strip, Rfl: 3, Taking DULoxetine (CYMBALTA) 30 mg capsule, Take 1 capsule by mouth once daily., Disp: , Rfl: 0, 05/25/2019 pregabalin (LYRICA) 150 mg capsule, Take 150 mg by mouth once daily. , Disp: , Rfl: , Taking doxycycline monohydrate (AVIDOXY) 100 mg tablet, Take 1 tablet by mouth twice daily for 14 days. (Patient taking differently: Take 100 mg by mouth twice daily. End date 06-23-19 ), Disp: 28 tablet, Rfl: 0 Current Facility-Administered Medications Medication Dose Route Frequency - vancomycin dosing and monitoring per pharmacy OTHER As Directed - vancomycin iv piggyback 1.25 g in D5W 250 mL (VANCOCIN) 1.25 g INTRAVENOUS q 12 HR - HYDROmorphone HCl 0.5 mg injection (DILAUDID) 0.5 mg INTRAVENOUS q 4 H PRN - pregabalin 150 mg cap(s) (LYRICA) 150 mg ORAL DAILY - lisinopril 10 mg tab(s) (ZESTRIL, PRINIVIL) 10 mg ORAL DAILY - pantoprazole DR 40 mg tab(s) (PROTONIX) 40 mg ORAL DAILY - enoxaparin 40 mg injection (LOVENOX) 40 mg SUBCUTANEOUS DAILY - NaCl 0.9% 3-5 mL 3-5 mL INTRAVENOUS q 12 H - ondansetron 4 mg tab(s) (ZOFRAN) 4 mg ORAL q 6 H PRN Or - ondansetron (PF) 4 mg injection (ZOFRAN) 4 mg INTRAVENOUS q 6 H PRN - docusate sodium 100 mg cap(s) (COLACE) 100 mg ORAL BID PRN - bisacodyl 10 mg suppository (DULCOLAX) 10 mg RECTAL DAILY PRN - dextrose 40 % 15 g 15 g ORAL PRN Or - glucagon 1 mg injection (GLUCAGEN) 1 mg INTRAMUSCULAR PRN Or - dextrose 50 % 12.5 g injection 12.5 g INTRAVENOUS PRN - perflutren lipid microspheres 1.1 mg/mL 1.3 mL injection (DEFINITY) 1.3 mL INTRAVENOUS DIRECTED PRN - insulin lispro pen (rapid acting) (HumaLOG KWIKPEN) SUBCUTANEOUS w MEALS - [START ON 06/13/2019] DULoxetine 20 mg cap(s) (CYMBALTA) 20 mg ORAL BID - insulin glargine 30 Units pen (long acting) (LANTUS SOLOSTAR, BASAGLAR KWIKPEN) 30 Units SUBCUTANEOUS BID - insulin lispro 24 Units pen (rapid acting) (HumaLOG KWIKPEN) 24 Units SUBCUTANEOUS w MEALS Allergies As of Date: 06/09/2019 (No Known Allergies) Fully Assessed 06/09/2019 COMPLETE REVIEW OF SYSTEMS: Left ankle pain Objective PHYSICAL EXAM: GENERAL: Alert, no distress, cooperative EYES: Negatives conjunctivae and sclerae normal LUNGS: Lungs clear to auscultation, Good diaphragmatic excursion CARDIAC: Normal S1 and S2; no rubs, murmurs, or gallops ABDOMEN: Abdomen soft, non-tender, BS normal, No masses or organomegaly EXTREMITIES: Normal exam of the extremities Patient Vitals for the past 24 hrs: BP Temp Temp src Pulse Resp SpO2 06/12/19 0833 138/82 36.8 ?C (98.2 ?F) Oral 102 16 95 % 06/12/19 0820 138/82 ? ? 102 ? ? 06/12/19 0440 137/77 36.6 ?C (97.9 ?F) Oral 98 16 95 % 06/12/19 0050 137/77 36.8 ?C (98.2 ?F) Temporal Art 101 16 94 % 06/11/19 1608 135/80 36.7 ?C (98.1 ?F) Temporal Art 104 16 93 % Body mass index is 29.63 kg/m?. DATA: Diagnostic tests reviewed for today's visit: Most recent labs and imaging results. CBC, Coags, BMP, Mg, Phos Recent Labs 06/12/19 0438 06/11/19 2120 06/11/19 1535 06/11/19 0745 06/10/19 0230 06/09/19 1548 WBC 21.82* -- -- 24.89* 26.84* 27.50* HB 9.7* -- -- 9.9* 10.3* 11.4* HCT 28.6* -- -- 28.8* 30.1* 34.9* PLT 285 -- -- 255 206 187 INR -- -- -- -- 1.09 1.08 APTT -- -- -- -- -- 27.6 NA 128* 128* 124* 126* 129* 127* K 3.7 4.0 4.9 4.4 3.9 3.8 CHLOR 98 97* 96* 95* 97* 96* CO2 26 26 21 22 25 26 BUN 32* 34* 37* 40* 36* 35* CREAT 0.67 0.68 0.71 0.81 0.91 1.03 GLUC 221* 275* 415* 414* 270* 241* CA 8.8 8.6 8.4* 8.6 8.9 9.4 Liver Function, Amylase, AND Lipase Recent Labs 06/12/1943706/11/19 0745 06/10/19 0230 06/09/19 1935 06/09/19 1556 TPROT 5.5* 5.7* 5.4* -- -- ALB 1.5* 1.7* 1.8* -- -- ALT 20 27 36 -- -- AST 12* 10* 33 -- -- ALKPHOS 307* 322* 327* -- -- TBILI 1.4* 2.1* 2.2* -- -- LACT -- -- -- 1.4 2.0 IMPRESSION: 1. ?Splenomegaly with maximum dimension of 15.9 cm. 2. ?Otherwise negative right upper quadrant ultrasound. Impression/Recommendation s Active Problems: Elevated alkaline phosphatase: suspect bone derived isoenzyme high, will get Alk phos fractionation History of hepatitis OP follow up 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) POA: Yes Assessment AND Plan: IVDU (intravenous drug user) POA: Yes Assessment AND Plan: last used 2 months, uses cocaine Closed fracture of left ankle POA: Yes Assessment AND Plan: Sepsis (HCC) POA: Unknown Assessment AND Plan: Resolved Problems: * No resolved hospital problems. * SIGNATURE: Sandra Black MD PATIENT NAME: Tori Cantor DATE: June 12, 2019 TIME: 1:28 PM PAGER: [phone] [facility] CONSULT PROGon 06-12-2019 CONSULT PROG HNO ID: [id number] Author: Patrick Peterson (Pharmacist) Service: Pharmacy Author Type: Pharmacist Type: Consult Progress Note Filed: 06/12/2019 4:04 PM Note Text: PHARMACY VANCOMYCIN DOSING NOTE Patient Name: Tori Cantor Admission Date: 06/09/2019 Date of Consult: 06/12/2019 Time of Consult: 4:03 PM The ID service has discontinued vancomycin therapy. Pharmacy vancomycin dosing service will sign off. Thank you for allowing us to participate in this patient's care. Please contact pharmacy if questions. JADYN ROBINS [facility] CONSULT PROG HNO ID: [id number] Author: Patrick Peterson (Pharmacist) Service: Pharmacy Author Type: Pharmacist Type: Consult Progress Note Filed: 06/12/2019 3:20 PM Note Text: PHARMACY VANCOMYCIN DOSING NOTE Patient Name: Tori Cantor Admission Date: 06/09/2019 Date of Consult: 06/12/2019 Time of Consult: 3:09 PM Indication: Skin/Soft tissue infection Goal Range: 10-20 mcg/mL (would target 15-20 given bacteremia) RECOMMENDATIONS/PLAN: Pharmacy consulted for vancomycin dosing for Tori Cantor, a 44 year old, male who is being treated with vancomycin for SSTI/bacteremia. 1. Patient is currently ordered Vancomycin 1.25 g IV q12h. Today is day 4 of therapy. 2. The most recent vancomycin level was 16.7 mcg/mL drawn at 15:35 on 06/11/19. This is a 9.5 hour level on the 3rd day of therapy. 3. Will increase vancomycin to 1.5 g with a dosing interval of q12h given improving SCr and to ensure a trough of 15-20 given bacteremia. As the level of 16.7 mcg/mL was drawn early, a true trough would be ~15. 4. The next vancomycin level will be ordered for 06/14/19 at 16:00 (prior to 5th dose of new regimen due 06/14/19 at 17:00) unless clinically indicated sooner. (Pharmacy will order) We will follow patient renal function, vancomycin levels and doses with you during the course of therapy. Additional recommendations will appear in follow up notes. If you have any questions, please contact PATRICK PETERSON, PHARMACIST at [phone]. Creatinine Date Value Ref Range Status 06/12/2019 0.67 0.67 - 1.17 mg/dL Final 06/11/2019 0.68 0.67 - 1.17 mg/dL Final 06/11/2019 0.71 0.67 - 1.17 mg/dL Final 06/11/2019 0.81 0.67 - 1.17 mg/dL Final SCr on 06/09/19 = 1.03 Urine output since midnight: 1350 mL. Age: [age] year old Allergies: ALLERGIES No Known Allergies Last 3 Encounter Wt Readings: Date: Wt: 06/09/2019 91 kg (200 lb 9.9 oz) 06/08/2019 88 kg (194 lb) 06/02/2019 79.4 kg (175 lb) Last 1 Encounter Ht Readings: Date: Ht: 06/09/2019 175.3 cm (5' 9) Estimated Creatinine Clearance: 155.2 mL/min (based on SCr of 0.67 mg/dL). Temp (24hrs), Av.7 ?C (98.1 ?F), Min:36.6 ?C (97.9 ?F), Max:36.8 ?C (98.2 ?F) - Current Temp: 36.8 ?C (98.2 ?F) Labs BUN (mg/dL) Date Value 06/12/2019 32 (H) 06/11/2019 34 (H) 06/11/2019 37 (H) Creatinine (mg/dL) Date Value 06/12/2019 0.67 06/11/2019 0.68 06/11/2019 0.71 WBC (thou/cmm) Date Value 06/12/2019 21.82 (H) 06/11/2019 24.89 (H) 06/10/2019 26.84 (HH) Vancomycin Levels: Vancomycin,Random (mg/L) Date/Time Value 06/11/2019 1535 16.7 PATRICK PETERSON, PHARMACIST Normal [facility] CONSULT PROG HNO ID: [id number] Author: Hortencia Osorio Service: Nephrology Author Type: Physician Type: Consult Progress Note Filed: 06/12/2019 4:27 PM Note Text: [facility] Nephrology Consultation Note Reason for consultation: Hyponatremia Chief Complaint: L foot pain History of Presenting Illness This is a 44 year old male with a PMHx of DM, HTN, past drug abuse, tobacco abuse as well as listed below who was admitted on 06/09 for left foot pain with cellutitis. He had ortho consult and had IANDD on 06/10. Receiving IV vancomycin for infection. The patient has been hyponatremic since admission. We were consulted for hyponatremia which is currently at 128 up from 124 yesterday. He states he has barely ate any food since admission and drinking 5-6 cups of water a day. Denies any N/V/D. C/O of lower middle back pain and left lower extremity pain. Edema to lower extremities is new per patient. Denies any chest pain or SOB. Past Medical/Surgical History PAST MEDICAL HISTORY Diagnosis Date - Diabetes (HCC) - DKA (diabetic ketoacidosis) (HCC) 08/2014 - Hyperglycemia 05/27/2019 - Hypertension - IVDU (intravenous drug user) 05/27/2019 - Lactose intolerance 07/30/2016 - Left ankle joint deformity 05/27/2019 - Pancreatitis 08/2014 - Tobacco abuse 05/27/2019 - Trimalleolar fracture of left ankle PAST SURGICAL HISTORY Procedure Laterality Date - NONE Review of Systems All 12 systems reviewed and are negative except for what is mentioned in the HPI. Medications Current Facility-Administered Medications Medication Dose Route Frequency - perflutren lipid microspheres 1.1 mg/mL 1.3 mL injection (DEFINToovari) 1.3 mL INTRAVENOUS DIRECTED PRN - insulin lispro pen (rapid acting) (HumaLOG KWIKPEN) SUBCUTANEOUS w MEALS - [START ON 06/13/2019] DULoxetine 20 mg cap(s) (CYMBALTA) 20 mg ORAL BID - insulin glargine 30 Units pen (long acting) (LANTUS SOLOSTAR, BASAGLAR KWIKPEN) 30 Units SUBCUTANEOUS BID - insulin lispro 24 Units pen (rapid acting) (HumaLOG KWIKPEN) 24 Units SUBCUTANEOUS w MEALS - vancomycin dosing and monitoring per pharmacy OTHER As Directed - vancomycin iv piggyback 1.25 g in D5W 250 mL (VANCOCIN) 1.25 g INTRAVENOUS q 12 HR - HYDROmorphone HCl 0.5 mg injection (DILAUDID) 0.5 mg INTRAVENOUS q 4 H PRN - pregabalin 150 mg cap(s) (LYRICA) 150 mg ORAL DAILY - lisinopril 10 mg tab(s) (ZESTRIL, PRINIVIL) 10 mg ORAL DAILY - pantoprazole DR 40 mg tab(s) (PROTONIX) 40 mg ORAL DAILY - enoxaparin 40 mg injection (LOVENOX) 40 mg SUBCUTANEOUS DAILY - NaCl 0.9% 3-5 mL 3-5 mL INTRAVENOUS q 12 H - ondansetron 4 mg tab(s) (ZOFRAN) 4 mg ORAL q 6 H PRN Or - ondansetron (PF) 4 mg injection (ZOFRAN) 4 mg INTRAVENOUS q 6 H PRN - docusate sodium 100 mg cap(s) (COLACE) 100 mg ORAL BID PRN - bisacodyl 10 mg suppository (DULCOLAX) 10 mg RECTAL DAILY PRN - dextrose 40 % 15 g 15 g ORAL PRN Or - glucagon 1 mg injection (GLUCAGEN) 1 mg INTRAMUSCULAR PRN Or - dextrose 50 % 12.5 g injection 12.5 g INTRAVENOUS PRN Allergies Patient has no known allergies. Family History Negative for Kidney Disease FAMILY HISTORY Problem Relation Age of Onset - Hypertension Mother - Diabetes Mother - Stroke Mother - Heart Mother CHF - Cataract Mother - Hypertension Father - COPD Father - Emphysema Father Social History Social History Tobacco Use - Smoking status: Current Every Day Smoker Packs/day: 1.00 Types: Cigarettes - Smokeless tobacco: Never Used Substance Use Topics - Alcohol use: Yes Comment: socially - Drug use: Yes Types: Cocaine, Amphetamines Comment: hist of cocaine and marajuana use, fentanyl Physical Exam Blood pressure 138/82, pulse 102, temperature 36.8 ?C (98.2 ?F), temperature source Oral, resp. rate 16, height 175.3 cm (5' 9), weight 91 kg (200 lb 9.9 oz), SpO2 95 %. 24 HR INTAKE/OUTPUT: Intake/Output Summary (Last 24 hours) at 06/12/2019 1236 Last data filed at 06/12/2019 0833 Gross per 24 hour Intake 840 ml Output 2650 ml Net -1810 ml General: NAD, Comfortable appearing, cooperative to history and physical exam. Head: AT NC Neck: Supple, no jvd EENT: eyes nonicteric, mm slightly dry Chest: Wheezing throughout auscultation, no crackles, no accessory muscles usage. CV: RRR, good S1 or S2. no murmurs or rubs Abdomen: NT, ND, soft Extremities: +1 to RLE peripheral edema, no tremor Neurological: Moving all four extremities, no focal neurological deficit Psychiatric: Normal insight and judgement, good recall Data CBC, Coags, BMP, Mg, Phos Recent Labs 06/12/19 04306/11/19 2120 06/11/19 1535 06/11/19 0745 06/10/19 0230 06/09/19 1548 WBC 21.82* -- -- 24.89* 26.84* 27.50* HB 9.7* -- -- 9.9* 10.3* 11.4* HCT 28.6* -- -- 28.8* 30.1* 34.9* PLT 285 -- -- 255 206 187 INR -- -- -- -- 1.09 1.08 APTT -- -- -- -- -- 27.6 NA 128* 128* 124* 126* 129* 127* K 3.7 4.0 4.9 4.4 3.9 3.8 CHLOR 98 97* 96* 95* 97* 96* CO2 26 26 21 22 25 26 BUN 32* 34* 37* 40* 36* 35* CREAT 0.67 0.68 0.71 0.81 0.91 1.03 GLUC 221* 275* 415* 414* 270* 241* CA 8.8 8.6 8.4* 8.6 8.9 9.4 Liver Function, Amylase, AND Lipase Recent Labs 06/12/198 06/11/19 0745 06/10/19 0230 06/09/19 1935 06/09/19 1556 TPROT 5.5* 5.7* 5.4* -- -- ALB 1.5* 1.7* 1.8* -- -- ALT 20 27 36 -- -- AST 12* 10* 33 -- -- ALKPHOS 307* 322* 327* -- -- TBILI 1.4* 2.1* 2.2* -- -- LACT -- -- -- 1.4 2.0 Cardiac Enzymes Imaging: Assessment: 1. Hyponatremia (ADH increase, decreased oral intake, stress from pain) 2. 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 Sepsis 2/2 LLE cellulitis (S. Aureus bacteremia) 4. 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 Intravenous drug abuse 6. Left leg splint s/p ( left ankle # ) Plan: Continue to hold cymbalta Increase protein intake Need better pain control Encourage PO intake (increase solutes) Watch free water intake Fluid restriction 1200 ml/day Nepro 1 can BID Monitor Na as should have slow increase, no more then 5 mEq/day increase. Thank you for asking us to participate in the management of your patient, please do not hesitate to contact me for any concerns regarding my recommendations as outlined above. Shar Ludwig APRN.[facility] Patient seen and independently examined and assessed.The Nurse practitioner note was reviewed and exam noted. I agree with his assessment and recommendations. Any variance is noted as below. Hyponatremia from increased free h2o intake+ poor omsoles + pain with ADH increase Urine lytes are noted Mixed picture is + Needs oral h20 restriction + ensure po Hold the cymbalta ,can increase ADH too Pain control will suppress the ADH release Rate of rise not to exceed 5 meq/24 h Follow the Na BID No other changes No indication for use of hypertonic saline or tolvaptan Will follow closely Hortencia Osorio MD [facility] CONSULT PROG HNO ID: [id number] Author: Salina Geronimo Service: Endocrinology Author Type: Physician Type: Consult Progress Note Filed: 06/12/2019 10:53 AM Note Text: ENDOCRINOLOGY CONSULT PROGRESS NOTE SERVICE DATE: 06/12/2019 SERVICE TIME: 10:00 AM Subjective INTERVAL HPI: Following for DM type 1. Adm with left ankle fracture after a fall, has left leg infection, cellulitis. Notes and orders reviewed. Diet: DIET CARBOHYDRATE CONTROLLED p.o intake good, following diet. Activity:Bedrest Review of Systems: PAIN ASSESSMENT: c/o left ankle pain (12/27) GENERAL: has fatigue, malaise, no fever/chills RESPIRATORY: Negative for cough, hemoptysis, wheezing, COPD, dyspnea or shortness of breath CARDIOVASCULAR: Negative for chest pain, leg swelling, hypertension, CHF or palpitations GI: No nausea, vomiting, or diarrhea ENDOCRINE: Negative for cold or heat intolerance, polyuria or polydipsia. The remainder of the review of systems is negative. Current Facility-Administered Medications Medication Dose Route Frequency - vancomycin dosing and monitoring per pharmacy OTHER As Directed - vancomycin iv piggyback 1.25 g in D5W 250 mL (VANCOCIN) 1.25 g INTRAVENOUS q 12 HR - HYDROmorphone HCl 0.5 mg injection (DILAUDID) 0.5 mg INTRAVENOUS q 4 H PRN - pregabalin 150 mg cap(s) (LYRICA) 150 mg ORAL DAILY - lisinopril 10 mg tab(s) (ZESTRIL, PRINIVIL) 10 mg ORAL DAILY - pantoprazole DR 40 mg tab(s) (PROTONIX) 40 mg ORAL DAILY - enoxaparin 40 mg injection (LOVENOX) 40 mg SUBCUTANEOUS DAILY - NaCl 0.9% 3-5 mL 3-5 mL INTRAVENOUS q 12 H - ondansetron 4 mg tab(s) (ZOFRAN) 4 mg ORAL q 6 H PRN Or - ondansetron (PF) 4 mg injection (ZOFRAN) 4 mg INTRAVENOUS q 6 H PRN - docusate sodium 100 mg cap(s) (COLACE) 100 mg ORAL BID PRN - bisacodyl 10 mg suppository (DULCOLAX) 10 mg RECTAL DAILY PRN - dextrose 40 % 15 g 15 g ORAL PRN Or - glucagon 1 mg injection (GLUCAGEN) 1 mg INTRAMUSCULAR PRN Or - dextrose 50 % 12.5 g injection 12.5 g INTRAVENOUS PRN - perflutren lipid microspheres 1.1 mg/mL 1.3 mL injection (DEFINITY) 1.3 mL INTRAVENOUS DIRECTED PRN - insulin lispro pen (rapid acting) (HumaLOG KWIKPEN) SUBCUTANEOUS w MEALS - [START ON 06/13/2019] DULoxetine 20 mg cap(s) (CYMBALTA) 20 mg ORAL BID - insulin glargine 30 Units pen (long acting) (LANTUS SOLOSTAR, BASAGLAR KWIKPEN) 30 Units SUBCUTANEOUS BID - insulin lispro 24 Units pen (rapid acting) (HumaLOG KWIKPEN) 24 Units SUBCUTANEOUS w MEALS Objective PHYSICAL EXAM: GENERAL: sleepy, no distress, cooperative, lying in bed SKIN: no rash/ bruising OROPHARYNX: moist LUNGS: Lungs clear to auscultation, Good diaphragmatic excursion CARDIAC: Normal S1 and S2; no rubs, murmurs, or gallops ABDOMEN: Abdomen soft, non-tender, BS normal, No masses or organomegaly EXTREMITIES: left leg in a bandage and external fixation frame; right foot charcot's deformity, no ulcers BP 138/82 Pulse 102 Temp (Src) 97.9 (Oral) Resp 16 Ht 5' 9 (1.75m) Wt 200 lb 9.9 oz (91.0kg) SpO2 95% BMI 29.61 kg/(m2). O2 Therapy: Room Air DATA: Diagnostic tests reviewed for today's visit: Most recent labs and imaging results. Last 24 hr BS reviewed. Recent Labs 06/12/19 0639 06/12/19 0438 06/11/19 2150 06/11/19 2120 06/11/19 1535 06/11/19 1108 06/11/19 0745 06/11/19 0619 06/10/19 2106 06/10/19 0230 GLUC -- 221* -- 275* 415* -- 414* -- -- -- 270* GLUCOSEMETER 233* -- 298* -- -- >400* -- 388* 342* < > -- < > = values in this interval not displayed. 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 Home Rx is Levemir 25 units bid and Novolog 14 units tid with SSI. Was on 70/30 from 03/09 till 05/18 (while incarcerated) Saw Endo in [place] in September,; due for appt? Started on lantus 25 units bid and Humalog 20 units tid here. BS still very high, increased Lantus to 30 units bid last night and Humalog to 24 unist tid from today am. Cellulitis/abscess left ankle, s/p debridement and external fixation of ankle fracture on 06/10 Hyponatremia, renal on board, evidence of SIADH, Na 128(124)(126) IVDU (intravenous drug user) POA: Yes Assessment AND Plan: hx Closed fracture of left ankle POA: Yes Assessment AND Plan: trimalleolar, 3 weeks ago after a fall SIGNATURE: Salina Geronimo MD PATIENT NAME: Tori Cantor DATE: June 12, 2019 TIME: 10:51 AM PAGER: [phone] Normal [facility] Comprehensive Panelon 2018 ALP [Catalytic activity/Vol] 307 U/L High 45-117 [facility] Comment on above: Performed By: #### P 14 ####[facility] [place], [place] [address] Bilirubin [Mass/Vol] 1.4 mg/dL High 0.2-1.0 [facility] Comment on above: Performed By: #### P 14 ####[address] [address] Protein [Mass/Vol] 5.5 g/dL Low 6.4-8.2 [facility] Comment on above: Performed By: #### P 14 ####[address] [address] Creatinine [Mass/Vol] 0.67 mg/dL Normal 0.67-1.17 [facility] Comment on above: Performed By: #### P 14 ####[address] [address] ALT [Catalytic activity/Vol] 20 U/L Normal 12-78 [facility] Comment on above: Performed By: #### P 14 ####[address] [address] AST [Catalytic activity/Vol] 12 U/L Low 15-37 [facility] Comment on above: Performed By: #### P 14 ####[address] [address] Glucose [Mass/Vol] 221 mg/dL High 70-99 [facility] Comment on above: Performed By: #### P 14 ####[address] [address] Albumin [Mass/Vol] 1.5 g/dL Low 3.4-5.0 [facility] Comment on above: Performed By: #### P 14 ####[facility] [place], [place] [address] Anion gap [Moles/Vol] 8 mmol/L Normal 8-16 [facility] Comment on above: Performed By: #### P 14 ####[facility] [place], [place] [address] Calcium [Mass/Vol] 8.8 mg/dL Normal 8.5-10.1 [facility] Comment on above: Performed By: #### P 14 ####[address] [address] CO2 [Moles/Vol] 26 mmol/L Normal 21-32 [facility] Comment on above: Performed By: #### P 14 ####[address] [address] Urea nitrogen [Mass/Vol] 32 mg/dL High 7-18 [facility] Comment on above: Performed By: #### P 14 ####[address] [address] Chloride [Moles/Vol] 98 mmol/L Normal 98-107 [facility] Comment on above: Performed By: #### P 14 ####[address] [address] Potassium [Moles/Vol] 3.7 mmol/L Normal 3.5-5.1 [facility] Comment on above: Performed By: #### P 14 ####[facility] [place], [place] [address] Sodium [Moles/Vol] 128 mmol/L Low 136-145 [facility] Comment on above: Performed By: #### P 14 ####[address] [address] Cult Bloodon 06-12-2019 Cult Blood Test performed at [facility] No growth Normal [facility] Comment on above: Performed By: #### C _BLO ####[address] [address] Cult Blood Test performed at [facility] No growth Normal [facility] Comment on above: Performed By: #### C _BLO ####[facility] [place] [id number] Hemogramon 06-12-2019 Erythrocyte distribution width (RBC) [Ratio] 13.3 % Normal 11.6-14.4 [facility] Comment on above: Performed By: #### C BC1 ####[facility] [place] [address] Hematocrit (Bld) [Volume fraction] 28.6 % Low 40.1-51.0 [facility] Comment on above: Performed By: #### C BC1 ####[place] [address] Hemoglobin (Bld) [Mass/Vol] 9.7 g/dL Low 13.7-17.5 [facility] Comment on above: Performed By: #### C BC1 ####[place] [address] MCH (RBC) [Entitic mass] 28.5 pg Normal 25.7-32.2 [facility] Comment on above: Performed By: #### C BC1 ####[place] [address] MCHC (RBC) [Mass/Vol] 33.9 % Normal 32.3-36.5 [facility] Comment on above: Performed By: #### C BC1 ####[place] [address] MCV (RBC) [Entitic vol] 84.1 fL Normal 83.2-95.6 [facility] Comment on above: Performed By: #### C BC1 ####[place] [id number] Platelet mean volume (Bld) [Entitic vol] 11.1 fL Normal 8.7-12.0 [facility] Comment on above: Performed By: #### C BC1 ####[address] [address] Platelets (Bld) [#/Vol] 285 thou/cmm Normal 141-365 [facility] Comment on above: Performed By: #### C BC1 ####[facility] [place], [place] [address] RBC (Bld) [#/Vol] 3.40 mil/cmm Low 4.63-6.08 [facility] [facility] Comment on above: Performed By: #### C BC1 ####[facility] [place], [place] [address] RDW SD 41.6 fl Normal 36.1-45.8 [facility] Comment on above: Performed By: #### C BC1 ####[facility] [place], [place] [address] WBC (Bld) [#/Vol] 21.82 thou/cmm High 4.23-9.07 [facility] Comment on above: Performed By: #### C BC1 ####[facility] [place], [place] [address] PLAN OF CAREon 06-12-2019 PLAN OF CARE HNO ID: [id number] Author: Osito Post (Research Project Manager) Service: Pharmacy Author Type: Pharmacist Type: Plan of Care Filed: 06/12/2019 4:48 PM Note Text: MEDICATION HISTORY AND MEDICATION RECONCILIATION Patient Name:Liliam Cantor : 1975 Source of history:Patient: Reliability of source: Appears reliable, clearly identified: Medication name, Medication dose and Medication frequency and assisted/Other [facility] Medication Nonadherence Identified: There are multiple discrepancies between the list from the SNF and the history provided by the patient. He is frustrated that so many of his medications were given differently by the SNF. The above information represents the best possible medication history: Yes Reconciliation completed? Yes All [employer] medications addressed by LIP Additional comments: The following medication have been adjusted based on the history provided by the patient. Added: Cyclobenzaprine 5 mg Q8 prn: pt states this made him dizzy, does not want to continue Ibuprofen 600 mg q6 hours prn lantus 24 units BID (pt uses levemir 30 units BID at home but started on lantus at SNF) Levofloxacin 750 mg daily through 12-5 Lovenox 40 mg Q24 hours (while at SNF) Oxycodone/acetaminophen 5-325mg 1 tab Q6hrs prn Changed: Cymbalta Home: 120 mg daily in the morning SNF: 30 mg daily Lyrica 100 mg TID Allergies: ALLERGIES No Known Allergies Preferred Pharmacy: [facility] [address] [place] [id number] [phone] [facility] [phone] Current [employer] Medications: Prior to Admission medications as of 06/12/19 1608 Medication Sig Last Dose Taking ibuprofen (MOTRIN) 400 mg tablet Take 400 mg by mouth every 6 hours as needed. Yes insulin glargine (LANTUS SOLOSTAR U-100 INSULIN) 100 unit/mL (3 mL) inpn Inject 24 Units subcutaneously twice daily. While at SNF Yes levoFLOXacin (LEVAQUIN) 750 mg tablet Take 750 mg by mouth once daily. End date 06-23-19 Yes enoxaparin (LOVENOX) 40 mg/0.4 mL syrg Inject 40 mg subcutaneously every 24 hours. Yes oxyCODONE-acetaminophen (PERCOCET) 5-325 mg tablet Take 1 tablet by mouth every 6 hours as needed. Yes insulin detemir U-100 (LEVEMIR FLEXTOUCH U-100 INSULN) 100 unit/mL (3 mL) inpn injection Inject 30 Units subcutaneously twice daily. While at home Yes doxycycline monohydrate (AVIDOXY) 100 mg tablet Take 1 tablet by mouth twice daily for 14 days. Patient taking differently: Take 100 mg by mouth twice daily. End date 06-23-19 Yes acetaminophen (TYLENOL) 325 mg tablet Take 2 tablets by mouth every 6 hours as needed. Yes insulin lispro (HUMALOG KWIKPEN INSULIN) 100 unit/mL inpn Inject 14 Units subcutaneously three times daily before meals. Patient taking differently: Inject subcutaneously three times daily before meals. Sliding scale 100-150: 2 units 151-200: 4 units 201-250: 6 units 251-300: 8 units 301-350: 10 units 351-400: 12 units 401-450: 14 units <70 or >400 call MD Yes lisinopril (ZESTRIL, PRINIVIL) 10 mg tablet Take 1 tablet by mouth once daily for [address]. [address] (PROTONIX) 40 mg tablet Take 40 mg by mouth once daily. Yes Lancets lancets Use as instructed Yes Insulin Dudley, Disposable, (BD ULTRAFINE III MINI PEN) 31 gauge x 3/16 ndle USE WITH INSULIN PENS 4TIMES DAILY Yes blood sugar diagnostic (ONETOUCH ULTRA TEST) test strip CHECK BLOOD SUGARS 6 TIMES DAILY Yes DULoxetine (CYMBALTA) 30 mg capsule Take 1 capsule by mouth once daily. Patient taking differently: Take 120 mg by mouth once daily. Yes pregabalin (LYRICA) 150 mg capsule Take 100 mg by mouth three times daily. Yes cyclobenzaprine (FLEXERIL) 5 mg tablet Take 5 mg by mouth every 8 hours as needed. Osito Post, Research Project Manager June 12, 2019 3:39 PM Normal [facility] PROGRESSon 06-12-2019 PROGRESS HNO ID: [id number] Author: Osito Reyes Service: Hospital Medicine Author Type: Physician Type: Progress Notes Filed: 06/12/2019 1:22 PM Note Text: DEPARTMENT OF HOSPITAL MEDICINE PROGRESS NOTE SERVICE DATE: 06/12/2019 SERVICE TIME: 1:13 PM Hospital Medicine/Primary Attending: Osito Reyes, DO NIGHT AND WEEKEND COVERAGE: After 7pm please page [phone] CHIEF COMPLAINT: Pain in L foot SUBJECTIVE: Pt seen and examined. No acute events overnight. Denies CP, SOB, vomiting, diarrhea, headache, fever/chills or abdominal pain today. OBJECTIVE: PHYSICAL EXAM: BP 138/82 Pulse 102 Temp (Src) 98.2 (Oral) Resp 16 Ht 5' 9 (1.75m) Wt 200 lb 9.9 oz (91.0kg) SpO2 95% BMI 29.61 kg/(m2). O2 Therapy: Room Air General - AANDOx3, NAD CV - RRR S1 S2, No M/R/G RESP - CTAB, ?No wheezes, ronchi, rales bilaterally ABD - soft, NT, ND +BS EXT -?L foot with external fixation device, foot warm, 3(+) distal pulses, no cyanosis or clubbing NEURO - CN II-XII grossly intact MEDICATIONS: Current Facility-Administered Medications Medication Dose Route Frequency - vancomycin dosing and monitoring per pharmacy OTHER As Directed - vancomycin iv piggyback 1.25 g in D5W 250 mL (VANCOCIN) 1.25 g INTRAVENOUS q 12 HR - HYDROmorphone HCl 0.5 mg injection (DILAUDID) 0.5 mg INTRAVENOUS q 4 H PRN - pregabalin 150 mg cap(s) (LYRICA) 150 mg ORAL DAILY - lisinopril 10 mg tab(s) (ZESTRIL, PRINIVIL) 10 mg ORAL DAILY - pantoprazole DR 40 mg tab(s) (PROTONIX) 40 mg ORAL DAILY - enoxaparin 40 mg injection (LOVENOX) 40 mg SUBCUTANEOUS DAILY - NaCl 0.9% 3-5 mL 3-5 mL INTRAVENOUS q 12 H - ondansetron 4 mg tab(s) (ZOFRAN) 4 mg ORAL q 6 H PRN Or - ondansetron (PF) 4 mg injection (ZOFRAN) 4 mg INTRAVENOUS q 6 H PRN - docusate sodium 100 mg cap(s) (COLACE) 100 mg ORAL BID PRN - bisacodyl 10 mg suppository (DULCOLAX) 10 mg RECTAL DAILY PRN - dextrose 40 % 15 g 15 g ORAL PRN Or - glucagon 1 mg injection (GLUCAGEN) 1 mg INTRAMUSCULAR PRN Or - dextrose 50 % 12.5 g injection 12.5 g INTRAVENOUS PRN - perflutren lipid microspheres 1.1 mg/mL 1.3 mL injection (DEFINITY) 1.3 mL INTRAVENOUS DIRECTED PRN - insulin lispro pen (rapid acting) (HumaLOG KWIKPEN) SUBCUTANEOUS w MEALS - [START ON 06/13/2019] DULoxetine 20 mg cap(s) (CYMBALTA) 20 mg ORAL BID - insulin glargine 30 Units pen (long acting) (LANTUS SOLOSTAR, BASAGLAR KWIKPEN) 30 Units SUBCUTANEOUS BID - insulin lispro 24 Units pen (rapid acting) (HumaLOG KWIKPEN) 24 Units SUBCUTANEOUS w MEALS DATA: Diagnostic tests reviewed for today's visit: CBC: Recent Labs 06/12/19 0438 WBC 21.82* RBC 3.40* HB 9.7* HCT 28.6* PLT 285 MCV 84.1 MCH 28.5 MPV 11.1 RDW 13.3 Coags: No results for input(s): INR, APTT in the last 24 hours. Invalid input(s): PT BMP: Recent Labs 06/12/19 0438 NA 128* K 3.7 CHLOR 98 CO2 26 BUN 32* CREAT 0.67 GLUC 221* CMP: Recent Labs 06/12/19 0438 NA 128* K 3.7 CHLOR 98 CO2 26 BUN 32* CREAT 0.67 GLUC 221* TPROT 5.5* CA 8.8 TBILI 1.4* ALKPHOS 307* ALT 20 AST 12* ANION 8 Cardiac Enzymes: No results for input(s): CK, MB, CKMB, TROPT in the last 24 hours. Liver Function, Amylase, Lipase: Recent Labs 06/12/19437 TPROT 5.5* ALB 1.5* ALT 20 AST 12* ALKPHOS 307* TBILI 1.4* MG/PHOS: No results for input(s): MG, P in the last 24 hours. Renal Panel: Recent Labs 06/12/198 CREAT 0.67 BUN 32* GLUC 221* CA 8.8 CHLOR 98 K 3.7 CO2 26 NA 128* Heme: No results for input(s): RETICP, ABSRETIC, LD, VIKRAM, FE, TIBC, TRANSFERSAT in the last 24 hours. No results found for: UALBCR Assessment/Plan #Sepsis 2/2 LLE cellulitis and S. Aureus bacteremia -in setting of L trimalleolar ankle fracture -Ortho consult -IANDD and placement of external fixator 06/10 -continue IV Vanc -ID consult -monitor blood cultures ? #S. Aureus bacteremia -continue IV Vanc -monitor cultures -Echo ordered ? #Hyponatremia- 2/2 dehydration, poor PO intake, and Hyperglycemia -stopped IVF, Na improved some today. Needs improved oral intake as he has no teeth and can only eat soft foods - daily BMP -needs improved glycemic control -review urine lytes -Nephrology consult, appreciate recs -decrease dose of cymbalta ? #Leukocytosis- 2/2 bacteremia and cellulitis as above. Monitor vitals. Daily CBC. ? #Hyperbilirubinemia and elevated ALP, elevated LFTs -possible 2/2 sepsis? Will trend liver enzymes -check acute hepatitis panel - US RUQ showed hepatomegaly #Splenomegaly- GI consult. Will need outpatient follow up for further hematologic cause. -ID on consult ? #IDDM, uncontrolled- Discussed importance of compliance. -Endocrine consult -Lantus and lispro adjusted per Endocrine. Continue SSIC ? #HTN-continue home lisinopril ? #Medical noncompliance ? #IVDA ? ? VTE Prophylaxis:?Lovenox 40mg Sub Q Daily?? ? Disposition:?SNF likely Plan of care discussed with: Provider, RN, Patient SIGNATURE: Osito Reyes DO PATIENT NAME: Tori Cantor DATE: June 12, 2019 TIME: 1:13 PM PAGER/CONTACT #: Team color pager Normal [facility] PROGRESS HNO ID: [id number] Author: Gareth Uriarte Service: Orthopaedic Surgery Author Type: Physician Type: Progress Notes Filed: 06/12/2019 10:17 AM Note Text: Orthopaedic INPATIENT PROGRESS NOTE A/P: 44 YO M POD2 s/p IANDD and external fixation LLE ? -Pain control -Weight-bearing status:?NWB LLE -Elevate operative extremity. Keep bolster under left knee -Wound vac change on Thursday to homegoing vac. Supplied by [employer]. 25 cm x 10 cm x 0.5 cm at greatest diameter -Management per primary -Antibiotics per ID: currently IV vanco -DVT Prophylaxis: SCD?to RLE,?per primary for chemical prophylaxis. Okay from ortho standpoint -Discharge planning. Okay for discharge from ortho standpoint when medically stable. No plans for surgical intervention by orthopedics this admission ? INTERVAL HPI: ? No acute events overnight. Pain controlled MEDICATIONS: Current Facility-Administered Medications Medication Dose Route Frequency - vancomycin dosing and monitoring per pharmacy OTHER As Directed - vancomycin iv piggyback 1.25 g in D5W 250 mL (VANCOCIN) 1.25 g INTRAVENOUS q 12 HR - HYDROmorphone HCl 0.5 mg injection (DILAUDID) 0.5 mg INTRAVENOUS q 4 H PRN - pregabalin 150 mg cap(s) (LYRICA) 150 mg ORAL DAILY - lisinopril 10 mg tab(s) (ZESTRIL, PRINIVIL) 10 mg ORAL DAILY - pantoprazole DR 40 mg tab(s) (PROTONIX) 40 mg ORAL DAILY - enoxaparin 40 mg injection (LOVENOX) 40 mg SUBCUTANEOUS DAILY - NaCl 0.9% 3-5 mL 3-5 mL INTRAVENOUS q 12 H - ondansetron 4 mg tab(s) (ZOFRAN) 4 mg ORAL q 6 H PRN Or - ondansetron (PF) 4 mg injection (ZOFRAN) 4 mg INTRAVENOUS q 6 H PRN - docusate sodium 100 mg cap(s) (COLACE) 100 mg ORAL BID PRN - bisacodyl 10 mg suppository (DULCOLAX) 10 mg RECTAL DAILY PRN - dextrose 40 % 15 g 15 g ORAL PRN Or - glucagon 1 mg injection (GLUCAGEN) 1 mg INTRAMUSCULAR PRN Or - dextrose 50 % 12.5 g injection 12.5 g INTRAVENOUS PRN - perflutren lipid microspheres 1.1 mg/mL 1.3 mL injection (DEFINITY) 1.3 mL INTRAVENOUS DIRECTED PRN - insulin lispro pen (rapid acting) (HumaLOG KWIKPEN) SUBCUTANEOUS w MEALS - [START ON 06/13/2019] DULoxetine 20 mg cap(s) (CYMBALTA) 20 mg ORAL BID - insulin glargine 30 Units pen (long acting) (LANTUS SOLOSTAR, BASAGLAR KWIKPEN) 30 Units SUBCUTANEOUS BID - insulin lispro 24 Units pen (rapid acting) (HumaLOG KWIKPEN) 24 Units SUBCUTANEOUS w MEALS PHYSICAL EXAM: BP 137/77 Pulse 98 Temp 36.6 ?C (97.9 ?F) (Oral) Resp 16 Ht 175.3 cm (5' 9) Wt 91 kg (200 lb 9.9 oz) SpO2 95% BMI 29.63 kg/m? Body mass index is 29.63 kg/m?. General appearance: NAD LLE: Dressing c/d/i, ex-fix in place Decreased sensation to light touch s/s/sp/dp/t Very slight ability to wiggle toes +2 dp/pt pulses DATA: CBC: Recent Labs 06/12/19 0438 WBC 21.82* RBC 3.40* HB 9.7* HCT 28.6* PLT 285 MCV 84.1 MCH 28.5 MPV 11.1 RDW 13.3 BMP: Recent Labs 06/12/19 0438 NA 128* K 3.7 CHLOR 98 CO2 26 BUN 32* CREAT 0.67 GLUC 221* IMAGING: no new images SIGNATURE: Alfred Salas MD PAGER: [phone] DATE of SERVICE: 06/12/2019 TIME of SERVICE: 6:53 AM Agree with resident assessment and plan. WBC trending down. Normal [facility] Basic Panelon 06-11-2019 Glucose [Mass/Vol] 415 mg/dL Critically high 70-99 [facility] Comment on above: Result Comment: RESU LT RECHECKED Performed By: #### P 8 ####[facility] [place], [place] [address] Creatinine [Mass/Vol] 0.71 mg/dL Normal 0.67-1.17 [facility] Comment on above: Performed By: #### P 8 ####[facility] [place], [place] [address] Anion gap [Moles/Vol] 12 mmol/L Normal 8-16 [facility] Comment on above: Performed By: #### P 8 ####[address] [address] CO2 [Moles/Vol] 21 mmol/L Normal 21-32 [facility] Comment on above: Performed By: #### P 8 ####[address] [address] Urea nitrogen [Mass/Vol] 37 mg/dL High 7-18 [facility] Comment on above: Performed By: #### P 8 ####[address] [address] Calcium [Mass/Vol] 8.4 mg/dL Low 8.5-10.1 [facility] Comment on above: Performed By: #### P 8 ####[address] [address] Chloride [Moles/Vol] 96 mmol/L Low 98-107 [facility] Comment on above: Performed By: #### P 8 ####[address] [address] Potassium [Moles/Vol] 4.9 mmol/L Normal 3.5-5.1 [facility] Comment on above: Performed By: #### P 8 ####[address] [address] Sodium [Moles/Vol] 124 mmol/L Low 136-145 [facility] Comment on above: Performed By: #### P 8 ####[address] [address] CASE MANAGEMon 11-23-2019 CASE MANAGEM HNO ID: [id number] Author: Charlee (Rn) MATT Lee Service: Care Management Author Type: Registered Nurse Type: Care Mgt Progress Note Filed: 06/11/2019 8:40 AM Note Text: CARE MANAGEMENT PROGRESS NOTE SERVICE DATE: 06/11/2019 SERVICE TIME: 8:39 AM LOS: 2 days Needs Prior to Discharge: Precertification;Discharg e Transportation Patient is from [facility] and plan is to return when medically ready. Will need precert to return. CM will continue to follow. SIGNATURE: Charlee Lee RN PATIENT NAME: Tori Cantor DATE: June 11, 2019 TIME: 8:38 AM PAGER/CONTACT #: [phone] [facility] CONSULTon 06-11-2019 CONSULT HNO ID: [id number] Author: Hortencia Osorio Service: Nephrology Author Type: Physician Type: Consults Filed: 06/11/2019 6:23 PM Note Text: Chart reviewed Full consult to follow D/w Dr Reyes Please see orders Urine lytes ordered Needs increaed po osmoles Cut cymbalta and hold at this time It can trigger ADH increase [facility] CONSULT HNO ID: [id number] Author: Salina Geronimo Service: Endocrinology Author Type: Physician Type: Consults Filed: 06/11/2019 12:02 PM Note Text: I have reviewed the patient's medical record in detail. Consult note dictated. See new insulin orders. Salina Geronimo MD [facility] CONSULT HNO ID: [id number] Author: Salina Geronimo Service: Endocrinology Author Type: Physician Type: Consults Filed: 06/13/2019 9:25 AM Note Text: [facility] - Consultation PATIENT NAME: TORI CANTOR CSN: [id number] DATE OF : 1975 SEX/AGE: M/44 PATIENT TYPE: I HOSP SVC: INTM LOCATION: [id number] DATE OF SERVICE: 06/11/2019 TIME OF SERVICE: 12:03 PM REASON FOR CONSULTATION: Uncontrolled diabetes. HISTORY: The patient is a 44-year-old male who was admitted with left foot pain and left lower extremity cellulitis. The patient had left ankle fracture about 3 weeks ago, and he was going to have surgery, then he started having pain and infection. He also has bacteremia. The patient had surgery on 06/09/2019. He had debridement of left leg and ankle wounds and external fixation of left ankle fracture. Regarding diabetes, the patient has type 1 diabetes for 33 years. He has diabetic neuropathy and gastroparesis. The patient follows up with cleaner operator in [place]. His last appointment was September 2018. At that time, his A1c was 13.7. His insulin doses were increased and compliance was encouraged. The patient states he missed his appointment with cleaner operator since he was incarcerated from 03/09 to 05/18. After coming home, he had a fall and fracture of his left leg. The patient checks his blood sugars regularly, and they are frequently high, but they have been less than 300. He eats only 2 meals a day. The patient takes Levemir 25 units b.i.d. at home and Humalog 14 units with each meal and extra if his blood sugar is over 300. He had lost lot of weight earlier on this year, but has gained the weight back since February now. He does have numbness in his feet. The patient is not aware of any eye problems from diabetes and he is not aware of any kidney problems. PAST MEDICAL HISTORY: History of type 1 diabetes with neuropathy, history of gastroparesis, history of drug abuse and tobacco abuse, history of DKA in the past, history of hypertension. FAMILY HISTORY: Positive for diabetes in his mother who had type 2 insulin- requiring diabetes. SOCIAL HISTORY: The patient is 1 pack a day smoker. He has history of cocaine, marijuana use, although he states he has not been doing drugs lately. REVIEW OF SYSTEMS: As per history of present illness, otherwise, negative. PHYSICAL EXAMINATION: GENERAL: The patient is lying in bed. VITAL SIGNS: Height is 5 feet and 9 inches, weight is 200 pounds. Temperature 36.8, BP 138/79. SKIN: Warm and dry. Left foot and leg are bandaged and in an external frame. Right foot does not have ulcers or calluses. HEENT: Pupils appear round. NECK: Supple. No goiter palpable on thyroid exam. LUNGS: Clear to auscultation. CVS: Regular rate and rhythm. ABDOMEN: Soft, nontender. EXTREMITIES: There is no edema on the right foot. The patient has Charcot foot, right foot. Diminished pinprick sensation over the right foot. LABORATORY DATA: HbA1c 11.3. Sodium 126, potassium 4.4, chloride 95, CO2 of 22, BUN 40, creatinine 0.81. Blood sugars yesterday greater than 300 frequently. It was 414 this morning on the lab and critically high now. CLINICAL IMPRESSION: 1. Diabetes mellitus type 1, uncontrolled with severe hyperglycemia. The patient is on Levemir 25 units b.i.d. at home. The patient was only given 10 units of Lantus yesterday and 20 units of Lantus last night. This morning, when he was n.p.o., he refused his morning insulin, then he took it late, and now, his blood sugars are critically high. Blood sugar is also high due to pain and immobilization. 2. Diabetic neuropathy. 3. Left ankle fracture and dislocation, status post surgery on 06/10. 4. Bacteremia. ID is on consult. RECOMMENDATION: 1. Discussed with the patient the importance of glycemic control for wound healing and infection. 2. I will increase his programmed Lantus to 22 units twice a day. 3. For now, I will increase his programmed Humalog to 20 units with each meal with a sliding scale. 4. We will continue carb-controlled diet. We will follow the patient with you. Salina Geronimo MD Endocrinology SM:fauzia /[id number] [facility] CONSULT PROGon 06-11-2019 CONSULT PROG HNO ID: [id number] Author: Osito Post (Research Project Manager) Service: Pharmacy Author Type: Pharmacist Type: Consult Progress Note Filed: 06/11/2019 6:33 PM Note Text: PHARMACY VANCOMYCIN DOSING NOTE Patient Name: Tori Cantor Admission Date: 06/09/2019 Date of Consult: 06/11/2019 Time of Consult: 6:27 PM Indication: Skin/Soft tissue infection Goal Range: 10-20 mcg/mL RECOMMENDATIONS/PLAN: Pharmacy consulted for vancomycin dosing for Tori Cantor, a 44 year old, male who is being treated with vancomycin for LEFT LE cellulitis And bacteremia. 1. Patient is currently ordered Vancomycin 1.25 g IV q12h. Today is day 3 of therapy. 2. The most recent vancomycin level was 16.7 mcg/mL drawn at 15:35 on 06-11. This is a 8.5 hour level on the 3rd day of therapy. 3. The present dose of vancomycin is the recommended dosage for this patient at this time. Continue therapy as prescribed. 4. The next vancomycin level will be ordered for 06-16 unless clinically indicated sooner. (Pharmacy will order) We will follow patient renal function, vancomycin levels and doses with you during the course of therapy. Additional recommendations will appear in follow up notes. If you have any questions, please contact Osito Post, Research Project Manager at [phone]. Age: [age] year old Allergies: ALLERGIES No Known Allergies Last 3 Encounter Wt Readings: Date: Wt: 06/09/2019 91 kg (200 lb 9.9 oz) 06/08/2019 88 kg (194 lb) 06/02/2019 79.4 kg (175 lb) Last 1 Encounter Ht Readings: Date: Ht: 06/09/2019 175.3 cm (5' 9) CrCl: 146.4 mL/min Temp (24hrs), Av ?C (98.6 ?F), Min:36.7 ?C (98.1 ?F), Max:37.4 ?C (99.3 ?F) - Current Temp: 36.7 ?C (98.1 ?F) Labs BUN (mg/dL) Date Value 06/11/2019 37 (H) 06/11/2019 40 (H) 06/10/2019 36 (H) Creatinine (mg/dL) Date Value 06/11/2019 0.71 06/11/2019 0.81 06/10/2019 0.91 WBC (thou/cmm) Date Value 06/11/2019 24.89 (H) 06/10/2019 26.84 (HH) 06/09/2019 27.50 (HH) Vancomycin Levels: Vancomycin,Random (mg/L) Date/Time Value 06/11/2019 1535 16.7 Osito Post, Research Project Manager Normal [facility] Chloride,Urineon 06-11-2019 Chloride,Urine 29 mEq/L Low 110-250 [facility] Comment on above: Performed By: #### C LUR ####[facility] [place], [place] [address] Comprehensive Panelon 2018 Glucose [Mass/Vol] 414 mg/dL Critically high 70-99 [facility] Comment on above: Result Comment: RESU LT RECHECKED Performed By: #### P 14 ####[facility] [place], [place] [address] ALP [Catalytic activity/Vol] 322 U/L High 45-117 [facility] Comment on above: Performed By: #### P 14 ####[facility] [place], [place] [address] Bilirubin [Mass/Vol] 2.1 mg/dL High 0.2-1.0 [facility] Comment on above: Performed By: #### P 14 ####[address] [address] Protein [Mass/Vol] 5.7 g/dL Low 6.4-8.2 [facility] Comment on above: Performed By: #### P 14 ####[address] [address] ALT [Catalytic activity/Vol] 27 U/L Normal 12-78 [facility] Comment on above: Performed By: #### P 14 ####[address] [address] AST [Catalytic activity/Vol] 10 U/L Low 15-37 [facility] Comment on above: Performed By: #### P 14 ####[address] [address] Creatinine [Mass/Vol] 0.81 mg/dL Normal 0.67-1.17 [facility] Comment on above: Performed By: #### P 14 ####[address] [address] Albumin [Mass/Vol] 1.7 g/dL Low 3.4-5.0 [facility] Comment on above: Performed By: #### P 14 ####[address] [address] Anion gap [Moles/Vol] 13 mmol/L Normal 8-16 [facility] Comment on above: Performed By: #### P 14 ####[facility] [place], [place] [address] CO2 [Moles/Vol] 22 mmol/L Normal 21-32 [facility] Comment on above: Performed By: #### P 14 ####[facility] [place], [place] [address] Urea nitrogen [Mass/Vol] 40 mg/dL High 7-18 [facility] Comment on above: Performed By: #### P 14 ####[facility] [place], [place] [address] Calcium [Mass/Vol] 8.6 mg/dL Normal 8.5-10.1 [facility] Comment on above: Performed By: #### P 14 ####[address] [address] Chloride [Moles/Vol] 95 mmol/L Low 98-107 [facility] Comment on above: Performed By: #### P 14 ####[address] [address] Potassium [Moles/Vol] 4.4 mmol/L Normal 3.5-5.1 [facility] Comment on above: Performed By: #### P 14 ####[address] [address] Sodium [Moles/Vol] 126 mmol/L Low 136-145 [facility] Comment on above: Performed By: #### P 14 ####[address] [address] Hemogramon 06-11-2019 Erythrocyte distribution width (RBC) [Ratio] 13.4 % Normal 11.6-14.4 [facility] Comment on above: Performed By: #### C BC1 ####[address] [address] Hematocrit (Bld) [Volume fraction] 28.8 % Low 40.1-51.0 [facility] Comment on above: Performed By: #### C BC1 ####[address] [address] Hemoglobin (Bld) [Mass/Vol] 9.9 g/dL Low 13.7-17.5 [facility] Comment on above: Performed By: #### C BC1 ####[facility] [place] [address] MCH (RBC) [Entitic mass] 28.9 pg Normal 25.7-32.2 [facility] Comment on above: Performed By: #### C BC1 ####[place] [address] MCHC (RBC) [Mass/Vol] 34.4 % Normal 32.3-36.5 [facility] Comment on above: Performed By: #### C BC1 ####[place] [address] MCV (RBC) [Entitic vol] 84.2 fL Normal 83.2-95.6 [facility] Comment on above: Performed By: #### C BC1 ####[place] [address] Platelet mean volume (Bld) [Entitic vol] 11.2 fL Normal 8.7-12.0 [facility] Comment on above: Performed By: #### C BC1 ####[place] [id number] Platelets (Bld) [#/Vol] 255 thou/cmm Normal 141-365 [facility] Comment on above: Performed By: #### C BC1 ####[place] [address] RBC (Bld) [#/Vol] 3.42 mil/cmm Low 4.63-6.08 [facility] Comment on above: Performed By: #### C BC1 ####[place] [address] RDW SD 41.5 fl Normal 36.1-45.8 [facility] Comment on above: Performed By: #### C BC1 ####[place] [id number] WBC (Bld) [#/Vol] 24.89 thou/cmm High 4.23-9.07 [facility] Comment on above: Performed By: #### C BC1 ####[address] [address] Hgb A1con 06-11-2019 HbA1c (Bld) [Mass fraction] 11.3 % High 4.2-6.3 [facility] Comment on above: Result Comment: Meth od is National Glycohemoglobin Standardization Program (NGSP) compliant. Performed By: #### H A1C ####[address] [address] HbA1c (Bld) [Mass fraction] 278 mg/dl Normal [facility] Comment on above: Performed By: #### H A1C ####[place] [id number] NURSING PROGon 06-11-2019 NURSING PROG HNO ID: [id number] Author: Yaneli (Rn) MATT Davison Service: Nursing Author Type: Registered Nurse Type: Nursing Progress Note Filed: 06/12/2019 6:44 AM Note Text: Nursing Progress Note Patient Name: Tori Cantor Patient Location: [place] [id number] Osorio x2 for resulted bmp, urine osmolality, chloride, and sodium as per requested. No critical results. Nursing will continue to monitor. This note was completed by: Yaneli Davison RN Normal [facility] Osmolality,Ur.on 06-11-2019 Osmolality (U) [Osmolality] 505 mOsm/kg Normal 250-1200 [facility] Comment on above: Performed By: #### O SMOU ####[address] [address] PROGRESSon 06-11-2019 PROGRESS HNO ID: [id number] Author: Osito Reyes Service: Hospital Medicine Author Type: Physician Type: Progress Notes Filed: 06/11/2019 5:30 PM Note Text: DEPARTMENT OF HOSPITAL MEDICINE PROGRESS NOTE SERVICE DATE: 06/11/2019 SERVICE TIME: 2:59 PM Hospital Medicine/Primary Attending: Osito Reyes DO NIGHT AND WEEKEND COVERAGE: After 7pm please page [phone] CHIEF COMPLAINT: L foot pain SUBJECTIVE: Pt seen and examined. States he has some L foot pain but seems controlled with pain meds. He has been refusing insulin at times. He denies CP, SOB, vomiting, diarrhea, headache, fever/chills or abdominal pain. OBJECTIVE: PHYSICAL EXAM: BP 138/79 Pulse 102 Temp (Src) 98.2 (Oral) Resp 17 Ht 5' 9 (1.75m) Wt 200 lb 9.9 oz (91.0kg) SpO2 97% BMI 29.61 kg/(m2). O2 Therapy: Room Air General - AANDOx3, NAD, calm CV - RRR S1 S2, No M/R/G RESP - CTAB, No wheezes, ronchi, rales ABD - soft, NT, ND +BS EXT - L foot with ext fixation device, foot warm, 3(+) distal pulses, no cyanosis NEURO - CN II-XII grossly intact MEDICATIONS: Current Facility-Administered Medications Medication Dose Route Frequency - vancomycin dosing and monitoring per pharmacy OTHER As Directed - vancomycin iv piggyback 1.25 g in D5W 250 mL (VANCOCIN) 1.25 g INTRAVENOUS q 12 HR - HYDROmorphone HCl 0.5 mg injection (DILAUDID) 0.5 mg INTRAVENOUS q 4 H PRN - pregabalin 150 mg cap(s) (LYRICA) 150 mg ORAL DAILY - lisinopril 10 mg tab(s) (ZESTRIL, PRINIVIL) 10 mg ORAL DAILY - pantoprazole DR 40 mg tab(s) (PROTONIX) 40 mg ORAL DAILY - DULoxetine 60 mg cap(s) (CYMBALTA) 60 mg ORAL BID - enoxaparin 40 mg injection (LOVENOX) 40 mg SUBCUTANEOUS DAILY - NaCl 0.9% 3-5 mL 3-5 mL INTRAVENOUS q 12 H - NaCl 0.9% iv infusion 125 mL/hr INTRAVENOUS CONTINUOUS - ondansetron 4 mg tab(s) (ZOFRAN) 4 mg ORAL q 6 H PRN Or - ondansetron (PF) 4 mg injection (ZOFRAN) 4 mg INTRAVENOUS q 6 H PRN - docusate sodium 100 mg cap(s) (COLACE) 100 mg ORAL BID PRN - bisacodyl 10 mg suppository (DULCOLAX) 10 mg RECTAL DAILY PRN - dextrose 40 % 15 g 15 g ORAL PRN Or - glucagon 1 mg injection (GLUCAGEN) 1 mg INTRAMUSCULAR PRN Or - dextrose 50 % 12.5 g injection 12.5 g INTRAVENOUS PRN - perflutren lipid microspheres 1.1 mg/mL 1.3 mL injection (DEFINITY) 1.3 mL INTRAVENOUS DIRECTED PRN - insulin lispro pen (rapid acting) (HumaLOG KWIKPEN) SUBCUTANEOUS w MEALS - insulin glargine 25 Units pen (long acting) (LANTUS SOLOSTAR, BASAGLAR KWIKPEN) 25 Units SUBCUTANEOUS BID - insulin lispro 20 Units pen (rapid acting) (HumaLOG KWIKPEN) 20 Units SUBCUTANEOUS w MEALS DATA: Diagnostic tests reviewed for today's visit: CBC: Recent Labs 06/11/19 0745 WBC 24.89* RBC 3.42* HB 9.9* HCT 28.8* PLT 255 MCV 84.2 MCH 28.9 MPV 11.2 RDW 13.4 Coags: No results for input(s): INR, APTT in the last 24 hours. Invalid input(s): PT BMP: Recent Labs 06/11/19 0745 NA 126* K 4.4 CHLOR 95* CO2 22 BUN 40* CREAT 0.81 GLUC 414* CMP: Recent Labs 06/11/19 0745 NA 126* K 4.4 CHLOR 95* CO2 22 BUN 40* CREAT 0.81 GLUC 414* TPROT 5.7* CA 8.6 TBILI 2.1* ALKPHOS 322* ALT 27 AST 10* ANION 13 Cardiac Enzymes: No results for input(s): CK, MB, CKMB, TROPT in the last 24 hours. Liver Function, Amylase, Lipase: Recent Labs 06/11/19 0745 TPROT 5.7* ALB 1.7* ALT 27 AST 10* ALKPHOS 322* TBILI 2.1* MG/PHOS: No results for input(s): MG, P in the last 24 hours. Renal Panel: Recent Labs 06/11/19 0745 CREAT 0.81 BUN 40* GLUC 414* CA 8.6 CHLOR 95* K 4.4 CO2 22 NA 126* Heme: No results for input(s): RETICP, ABSRETIC, LD, VIKRAM, FE, TIBC, TRANSFERSAT in the last 24 hours. No results found for: UALBCR Assessment/Plan #Sepsis 2/2 LLE cellulitis and S. Aureus bacteremia -in setting of L trimalleolar ankle fracture -Ortho consult -IANDD and placement of external fixator 06/10 -continue IV Vanc -ID consult -monitor blood cultures ? #S. Aureus bacteremia -continue IV Vanc -monitor cultures -Echo ordered ? #Hyponatremia- 2/2 dehydration, poor PO intake, and Hyperglycemia -continue IVF, daily BMP. Will eat food after RUQ US today. -needs improved glycemic control -ADDENDUM 06/11 1730: Na 124- called Dr. Osorio who recommends holding NSS IVF. Check urine lytes. Repeat BMP in 4 hours and notify Nephrology of results. He is asymptomatic currently. Need better blood glucose as well- nursing is calling endocrine for BG in 400s. ? #Leukocytosis- 2/2 bacteremia and cellulitis as above. Monitor vitals. Daily CBC. ? #Hyperbilirubinemia and elevated ALP, elevated LFTs -possible 2/2 sepsis? Will trend liver enzymes, consider GI consult if not improving. -Check US RUQ. ? #IDDM, uncontrolled- Discussed importance of compliance. -Endocrine consult -Increase lantus and lispro mealtime doses. Continue SSIC ? #HTN-continue home lisinopril ? #Medical noncompliance ? #IVDA ? ? VTE Prophylaxis: Lovenox 40mg Sub Q Daily ? Disposition: SNF likely Plan of care discussed with: Provider, RN, Patient SIGNATURE: Osito Reyes DO PATIENT NAME: Tori Cantor DATE: June 11, 2019 TIME: 2:59 PM PAGER/CONTACT #: Team color pager Normal [facility] PROGRESS HNO ID: [id number] Author: Donnell Garcia Service: Infectious Disease Author Type: Physician Type: Progress Notes Filed: 06/11/2019 11:16 AM Note Text: INFECTIOUS DISEASE PROGRESS NOTE Patient Name: Tori Cantor Date: 06/11/2019 ASSESSMENT: 1. 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 LEFT LE cellulitis with purulence 3. Left ankle tri malleolar fracture with left leg cellulitis and infected fracture blisters placement of external fixator as well as I and D of the superficial abscess and puruelent blisters and wound vac application. There is NO hardware associated infection as there was no previous hardware( Clarified by ortho and mistakenly interpreted by ID) 4. leukocytosis PLAN: Continue with vancomycin to cover for bacillus and MSSA bacteremia. Normally would have switched to cefazolin but since he also has bacillus bacteremia, would keep the vancomycin going until this gram positive benny is speciated. JOANNA is pending INTERVAL HISTORY: ROS done with pt/RN and negative unless stated. Patient did not have a fever overnight He showed me pictures in his iphone as to how bad his wound looked MEDICATIONS: reviewed. Current Facility-Administered Medications Medication Dose Route Frequency - vancomycin dosing and monitoring per pharmacy OTHER As Directed - vancomycin iv piggyback 1.25 g in D5W 250 mL (VANCOCIN) 1.25 g INTRAVENOUS q 12 HR - HYDROmorphone HCl 0.5 mg injection (DILAUDID) 0.5 mg INTRAVENOUS q 4 H PRN - pregabalin 150 mg cap(s) (LYRICA) 150 mg ORAL DAILY - lisinopril 10 mg tab(s) (ZESTRIL, PRINIVIL) 10 mg ORAL DAILY - pantoprazole DR 40 mg tab(s) (PROTONIX) 40 mg ORAL DAILY - DULoxetine 60 mg cap(s) (CYMBALTA) 60 mg ORAL BID - enoxaparin 40 mg injection (LOVENOX) 40 mg SUBCUTANEOUS DAILY - NaCl 0.9% 3-5 mL 3-5 mL INTRAVENOUS q 12 H - NaCl 0.9% iv infusion 125 mL/hr INTRAVENOUS CONTINUOUS - ondansetron 4 mg tab(s) (ZOFRAN) 4 mg ORAL q 6 H PRN Or - ondansetron (PF) 4 mg injection (ZOFRAN) 4 mg INTRAVENOUS q 6 H PRN - docusate sodium 100 mg cap(s) (COLACE) 100 mg ORAL BID PRN - bisacodyl 10 mg suppository (DULCOLAX) 10 mg RECTAL DAILY PRN - dextrose 40 % 15 g 15 g ORAL PRN Or - glucagon 1 mg injection (GLUCAGEN) 1 mg INTRAMUSCULAR PRN Or - dextrose 50 % 12.5 g injection 12.5 g INTRAVENOUS PRN - insulin lispro pen (rapid acting) (HumaLOG KWIKPEN) SUBCUTANEOUS q 6 H - insulin glargine 20 Units pen (long acting) (LANTUS SOLOSTAR, BASAGLAR KWIKPEN) 20 Units SUBCUTANEOUS BID - perflutren lipid microspheres 1.1 mg/mL 1.3 mL injection (DEFINITY) 1.3 mL INTRAVENOUS DIRECTED PRN PHYSICAL EXAM: Vital signs: BP 138/79 Pulse 102 Temp 36.8 ?C (98.2 ?F) (Oral) Resp 17 Ht 175.3 cm (5' 9) Wt 91 kg (200 lb 9.9 oz) SpO2 97% BMI 29.63 kg/m? Temp (24hrs), Av.9 ?C (98.5 ?F), Min:36.4 ?C (97.5 ?F), Max:37.5 ?C (99.5 ?F) General: alert, oriented, NAD Lungs: bilaterally clear to auscultation Heart: regular rate and rhythm Abdomen: soft, non tender, non distended, BS+ Extremities: left foot external fixator in place with thick fat dressing in place Skin: no rash IV sites - wnl Lab data: reviewed Recent Labs 06/11/19 0745 06/10/19 0230 06/09/19 1935 06/09/19 1556 06/09/19 1548 06/08/192024 WBC 24.89* 26.84* -- -- 27.50* 23.44* HB 9.9* 10.3* -- -- 11.4* 12.2* PLT 255 206 -- -- 187 223 INR -- 1.09 -- -- 1.08 -- NA 126* 129* -- -- 127* 128* K 4.4 3.9 -- -- 3.8 3.7 CO2 22 25 -- -- 26 30 BUN 40* 36* -- -- 35* 31* CREAT 0.81 0.91 -- -- 1.03 0.78 AST 10* 33 -- -- 44* -- ALT 27 36 -- -- 42 -- TBILI 2.1* 2.2* -- -- 2.3* -- ALKPHOS 322* 327* -- -- 386* -- WSR -- -- -- -- -- 84* CRP -- -- -- -- -- 23.80* LACT -- -- 1.4 2.0 -- -- Microbiology data: reviewed Imaging data: reviewed Donnell Garcia MD General and Orthopedics Infectious Diseases Pager: [phone] [facility] PROGRESS HNO ID: [id number] Author: Gareth Uriarte Service: Orthopaedic Surgery Author Type: Physician Type: Progress Notes Filed: 06/12/2019 10:16 AM Note Text: Orthopaedic INPATIENT PROGRESS NOTE A/P: 44 YO M POD1 s/p IANDD and external fixation LLE -Pain control -Weight-bearing status: NWB LLE -Elevate operative extremity. Keep bolster under left knee -Wound vac change on Thursday to going vac. Supplied by [employer]. 25 cm x 10 cm x 0.5 cm at greatest diameter -Management per primary -Antibiotics per ID: currently IV vanco -DVT Prophylaxis: SCD to RLE, per primary for chemical prophylaxis. Okay from ortho standpoint -Discharge planning. Okay for discharge from ortho standpoint when medically stable. No plans for surgical intervention by orthopedics this admission INTERVAL HPI: No acute events overnight. Pain controlled. MEDICATIONS: Current Facility-Administered Medications Medication Dose Route Frequency - vancomycin dosing and monitoring per pharmacy OTHER As Directed - vancomycin iv piggyback 1.25 g in D5W 250 mL (VANCOCIN) 1.25 g INTRAVENOUS q 12 HR - HYDROmorphone HCl 0.5 mg injection (DILAUDID) 0.5 mg INTRAVENOUS q 4 H PRN - pregabalin 150 mg cap(s) (LYRICA) 150 mg ORAL DAILY - lisinopril 10 mg tab(s) (ZESTRIL, PRINIVIL) 10 mg ORAL DAILY - pantoprazole DR 40 mg tab(s) (PROTONIX) 40 mg ORAL DAILY - DULoxetine 60 mg cap(s) (CYMBALTA) 60 mg ORAL BID - enoxaparin 40 mg injection (LOVENOX) 40 mg SUBCUTANEOUS DAILY - NaCl 0.9% 3-5 mL 3-5 mL INTRAVENOUS q 12 H - NaCl 0.9% iv infusion 100 mL/hr INTRAVENOUS CONTINUOUS - ondansetron 4 mg tab(s) (ZOFRAN) 4 mg ORAL q 6 H PRN Or - ondansetron (PF) 4 mg injection (ZOFRAN) 4 mg INTRAVENOUS q 6 H PRN - docusate sodium 100 mg cap(s) (COLACE) 100 mg ORAL BID PRN - bisacodyl 10 mg suppository (DULCOLAX) 10 mg RECTAL DAILY PRN - dextrose 40 % 15 g 15 g ORAL PRN Or - glucagon 1 mg injection (GLUCAGEN) 1 mg INTRAMUSCULAR PRN Or - dextrose 50 % 12.5 g injection 12.5 g INTRAVENOUS PRN - insulin lispro pen (rapid acting) (HumaLOG KWIKPEN) SUBCUTANEOUS q 6 H - insulin glargine 20 Units pen (long acting) (LANTUS SOLOSTAR, BASAGLAR KWIKPEN) 20 Units SUBCUTANEOUS BID PHYSICAL EXAM: BP 108/76 Pulse 105 Temp 37.3 ?C (99.1 ?F) (Oral) Resp 18 Ht 175.3 cm (5' 9) Wt 91 kg (200 lb 9.9 oz) SpO2 95% BMI 29.63 kg/m? Body mass index is 29.63 kg/m?. General appearance: NAD LLE: Dressing c/d/i, ex-fix in place Decreased sensation to light touch s/s/sp/dp/t Very slight ability to wiggle toes +2 dp/pt pulses DATA: CBC: No results for input(s): WBC, RBC, HB, HCT, PLT, MCV, MCH, MPV, RDW in the last 24 hours. BMP: No results for input(s): NA, K, CHLOR, CO2, BUN, CREAT, GLUC in the last 24 hours. IMAGING: no new images SIGNATURE: Alfred Salas MD PAGER: [phone] DATE of SERVICE: 06/11/2019 TIME of SERVICE: 6:40 AM Agree with resident assessment and plan. Normal [facility] Sodium,Urineon 06-11-2019 Sodium (U) [Moles/Vol] 24 mmol/L Normal [facility] Comment on above: Performed By: #### N AUR ####[place] [address] US ABD RIGHT UPPER QUADRANTo n 06-11-2019 US ABD RIGHT UPPER QUADRANT * * *Final Report* * * DATE OF EXAM: Jun 11 2019 8:29AM [facility] 1032 - US ABD RIGHT UPPER QUADRANT / PROCEDURE REASON: Abn liver function tests (LFTs) * * * * Physician Interpretation * * * * EXAMINATION: RIGHT UPPER QUADRANT AND SPLEEN ULTRASOUND CLINICAL HISTORY: The patient has abnormal liver function studies. TECHNIQUE: Sonography of the right upper quadrant was performed. Images were obtained and stored in a permanent archive. MQ: [id number] COMPARISON: None. RESULT: Pancreas: Portions of the body and tail the pancreas are obscured by overlying bowel gas. The visualized portions the pancreas are unremarkable. Liver: The liver is of uniform echogenicity. No focal hepatic lesions are noted. Biliary: No intrahepatic biliary duct dilation. CBD: 0.2 cm at the hilum. Gallbladder: The gallbladder is not fully distended. No gallstones, gallbladder wall thickening or abnormal pericholecystic fluid collections are noted. There is no tenderness when scanning over the gallbladder. Right Kidney: The right kidney measures greater than or equal to 14.5 cm. There is no evidence of hydronephrosis. Spleen: There is splenomegaly. The spleen measures 15.9 x 5.4 x 6.4 cm. No focal splenic abnormalities are noted. Ascites: None. IMPRESSION: 1. Splenomegaly with maximum dimension of 15.9 cm. 2. Otherwise negative right upper quadrant ultrasound. Av Specialist: PSCB Transcribe Date/Time: Jun 11 2019 8:34A Dictated by : ANNA PACHECO MD This examination was interpreted and the report reviewed and electronically signed by: ANNA PACHECO MD on Jun 11 2019 8:40AM EST Normal [facility] Vancomycin,Randomon 06-11-20 19 INR Coag (Bld) [Relative time] 16.7 mg/L Normal [facility] Comment on above: Result Comment: Trou gh 10.0-20.0 mg/L Peak 18.0-40.0 mg/L Performed By: #### V ANCR ####[place] [id number] ANES Le 06-10-2019 ANES POST HNO ID: [id number] Author: Blade Fernandez Service: Anesthesiology Author Type: Physician Type: Anesthesia PostOp Filed: 06/10/2019 4:31 PM Note Text: POST ANESTHESIA EVALUATION NOTE SERVICE DATE: 06/10/2019 SERVICE TIME: 4:31 PM : 1975 Vitals: 06/10/19 0957 06/10/19 1305 06/10/19 1345 06/10/19 1420 Temp: 37.5 ?C (99.5 ?F) 36.4 ?C (97.5 ?F) 36.9 ?C (98.4 ?F) 37.5 ?C (99.5 ?F) 06/10/19 1315 06/10/19 1330 06/10/19 1345 06/10/19 1420 BP: 120/72 125/82 130/84 133/85 06/10/19 1330 06/10/19 1345 06/10/19 1400 06/10/19 1420 Pulse: 98 97 97 96 06/10/19 1330 06/10/19 1345 06/10/19 1400 06/10/19 1420 Resp: 23 20 20 20 06/10/19 1330 06/10/19 1345 06/10/19 1400 06/10/19 1420 SpO2: 94% 97% 96% 96% Validated Vital Signs: Yes POST ANES STATUS: No apparent anesthetic complications. The patient is appropriately hydrated with stable respiratory and cardiovascular status. Patient has safe and adequate airway control. The patient has appropriate pain relief and no significant post operative nausea or vomiting. The patient has achieved baseline mental status. Intra-Operative Events: No Significant Anesthesia Events Further assessment by Anesthesia Service: None Other Remarks: SIGNATURE: Blade Fernandez MD PATIENT NAME: Tori Cantor DATE: June 10, 2019 TIME: 4:31 PM PAGER/CONTACT # Normal [facility] ANES PREOPon 06-10-2019 ANES PREOP HNO ID: [id number] Author: Blade Fernandez Service: Anesthesiology Author Type: Physician Type: Anesthesia PreOp Filed: 06/10/2019 3:22 PM Note Text: ANESTHESIOLOGY DAY OF SURGERY NOTE SERVICE DATE: 06/10/2019 SERVICE TIME: 3:22 PM : 1975 Procedure(s) (LRB): ORIF ANKLE TRIMALLEOLAR, WITHOUT FIXATION POSTERIOR LIP (Left) APPLICATION EXTERNAL FIXATOR ANKLE (Left) Surgeon(s): Jayy Phelps Estimated body mass index is 29.63 kg/m? as calculated from the following: Height as of this encounter: 175.3 cm (5' 9). Weight as of this encounter: 91 kg (200 lb 9.9 oz). Most recent hematocrit and potassium results: Hematocrit 30.1 06/10/2019 Potassium 3.9 06/10/2019 ANES DOS/PREOP NOTE: Vitals: 06/10/19 1330 06/10/19 1345 06/10/19 1400 06/10/19 1420 BP: 125/82 130/84 133/85 Pulse: 98 97 97 96 Resp: 20 20 Temp: 36.9 ?C (98.4 ?F) 37.5 ?C (99.5 ?F) TempSrc: Oral SpO2: 94% 97% 96% 96% Weight: Height: ACTIVE PROBLEM LIST Uncontrolled type 1 diabetes mellitus mild nonproliferative retinopathy without macular edema ([facility]) Hypertension Gerd (Gastroesophageal Reflux Disease) Microalbuminuria History of Diabetic Gastroparesis Diabetic Polyneuropathy Associated With Type 1 Diabetes Mellitus ([facility]) Depression With Anxiety Charcot's Joint of Right Foot Hyperlipidemia Hep C W/O Coma, Chronic ([facility]) History of Drug Abuse in Remission ([facility]) Ivdu (Intravenous Drug User) Tobacco Abuse Left Ankle Joint Deformity Hyperglycemia Nicotine use disorder, F17.2 Closed Fracture of Left Ankle Sepsis ([facility]) 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 - Pancreatitis 08/2014 - Tobacco abuse 05/27/2019 - Trimalleolar fracture of left ankle PAST SURGICAL HISTORY Procedure Laterality Date - NONE FAMILY HISTORY Problem Relation Age of Onset - Hypertension Mother - Diabetes Mother - Stroke Mother - Heart Mother CHF - Cataract Mother - Hypertension Father - COPD Father - Emphysema Father Social History: Social History Tobacco Use - Smoking status: Current Every Day Smoker Packs/day: 1.00 Types: Cigarettes - Smokeless tobacco: Never Used Substance Use Topics - Alcohol use: Yes Comment: socially - Drug use: Yes Types: Cocaine, Amphetamines Comment: hist of cocaine and marajuana use, fentanyl No current facility-administered medications on file prior to encounter. Current Outpatient Medications on File Prior to Encounter Medication Sig - insulin detemir (LEVEMIR U-100 INSULIN SUBCUTANEOUS) Inject 20 Units subcutaneously twice daily. - acetaminophen (TYLENOL) 325 mg tablet Take 2 tablets by mouth every 6 hours as needed. - insulin lispro (HUMALOG KWIKPEN INSULIN) 100 unit/mL inpn Inject 14 Units subcutaneously three times daily before meals. (Patient taking differently: Inject 14 Units subcutaneously three times daily before meals. If glucose is 300 or higher ) - lisinopril (ZESTRIL, PRINIVIL) 10 mg tablet Take 1 tablet by mouth once daily for 15 days. - pantoprazole DR (PROTONIX) 40 mg tablet Take 40 mg by mouth once daily. - Lancets lancets Use as instructed - Insulin Dudley, Disposable, (BD ULTRAFINE III MINI PEN) 31 gauge x 3/16 ndle USE WITH INSULIN PENS 4TIMES DAILY - blood sugar diagnostic (WatchDoxUCH ULTRA TEST) test strip CHECK BLOOD SUGARS 6 TIMES DAILY - DULoxetine (CYMBALTA) 30 mg capsule Take 1 capsule by mouth once daily. (Patient taking differently: Take 60 mg by mouth twice daily. ) - pregabalin (LYRICA) 150 mg capsule Take 150 mg by mouth once daily. - doxycycline monohydrate (AVIDOXY) 100 mg tablet Take 1 tablet by mouth twice daily for 14 days. Current Facility-Administered Medications Medication Dose Route Frequency Provider Last Rate Last Dose - vancomycin dosing and monitoring per pharmacy OTHER As Directed Velvet Torresuajaimie - vancomycin iv piggyback 1.25 g in D5W 250 mL (VANCOCIN) 1.25 g INTRAVENOUS q 12 HR Velvet Fouad 250 mL/hr at 06/10/19 0503 1.25 g at 06/10/19 0503 - HYDROmorphone HCl 0.5 mg injection (DILAUDID) 0.5 mg INTRAVENOUS q 4 H PRN Velvet Fouad 0.5 mg at 06/10/19 0216 - pregabalin 150 mg cap(s) (LYRICA) 150 mg ORAL DAILY Velvet Phelps - lisinopril 10 mg tab(s) (ZESTRIL, PRINIVIL) 10 mg ORAL DAILY Velvet Phelps - pantoprazole DR 40 mg tab(s) (PROTONIX) 40 mg ORAL DAILY Velvet Torresuad - DULoxetine 60 mg cap(s) (CYMBALTA) 60 mg ORAL BID Velvet Fouad - insulin glargine 10 Units pen (long acting) (LANTUS SOLOSTAR, BASAGLAR KWIKPEN) 10 Units SUBCUTANEOUS BID Velvet Fouad 10 Units at 06/10/19 0924 - enoxaparin 40 mg injection (LOVENOX) 40 mg SUBCUTANEOUS DAILY Velvet Fouad - NaCl 0.9% 3-5 mL 3-5 mL INTRAVENOUS q 12 H Velvet Fouad - NaCl 0.9% iv infusion 100 mL/hr INTRAVENOUS CONTINUOUS Velvet Fouad 100 mL/hr at 06/09/19 2213 100 mL/hr at 06/09/19 2213 - ondansetron 4 mg tab(s) (ZOFRAN) 4 mg ORAL q 6 H PRN Velvet Fouad Or - ondansetron (PF) 4 mg injection (ZOFRAN) 4 mg INTRAVENOUS q 6 H PRN Velvet Fouad - docusate sodium 100 mg cap(s) (COLACE) 100 mg ORAL BID PRN Velvet Fouad - bisacodyl 10 mg suppository (DULCOLAX) 10 mg RECTAL DAILY PRN Velvet Fouad - dextrose 40 % 15 g 15 g ORAL PRN Velvet Fouad Or - glucagon 1 mg injection (GLUCAGEN) 1 mg INTRAMUSCULAR PRN Velvet Fouad Or - dextrose 50 % 12.5 g injection 12.5 g INTRAVENOUS PRN Velvet Fouad - insulin lispro pen (rapid acting) (HumaLOG KWIKPEN) SUBCUTANEOUS q 6 H Velvet Fouad 4 Units at 06/10/19 1502 Allergies: ALLERGIES No Known Allergies DOS EXAM: Adequate NPO status: Yes Anesthetic risks, benefits, alternatives, personnel and consent discussed: Yes Patient agrees to proceed: Yes Previous Anesthesia: No history of adverse event. Airway Assessment: MP 2; Neck ROM: Full ROM without neurologic symptoms; Airway Evaluation: No significant abnormalities Symptoms of Sleep Apnea: None Dentition: Teeth intact Additional Physical Exam: Lungs: Patient health status unchanged since recent history and physical. See history and physical for exam findings. Cardiac: Patient health status unchanged since recent history and physical. See history and physical for exam findings. Additional Pertinent Findings: N/A Blood Products: Not anticipated for this procedure. Anesthetic Plan: General, Standard ASA Monitors Pain Management Plan: Parenteral or Oral ASA Class: 3 Other Medical Problems: None Chronic Beta Andrews medication administered within 24 hours: N/A I have interviewed and examined the patient. I have reviewed the medical record and/or the pre-anesthesia evaluation, pertinent labs, and test results. Significant changes in the patient's condition since the History and Physical, not otherwise documented in primary service progress notes: No This contains updated information obtained within 48 hours of Surgery/Procedure. SIGNATURE: Blade Fernandez MD PATIENT NAME: Tori Cantor DATE: June 10, 2019 TIME: 3:22 PM CSN: [id number] Normal [facility] Basic Panelon 06-10-2019 Creatinine [Mass/Vol] 0.91 mg/dL Normal 0.67-1.17 [facility] Comment on above: Performed By: #### P 8 ####[address] [address] Anion gap [Moles/Vol] 11 mmol/L Normal 8-16 [facility] Comment on above: Performed By: #### P 8 ####[address] [address] CO2 [Moles/Vol] 25 mmol/L Normal 21-32 [facility] Comment on above: Performed By: #### P 8 ####[address] [address] Glucose [Mass/Vol] 270 mg/dL High 70-99 [facility] Comment on above: Performed By: #### P 8 ####[facility] [place], [place] [address] Urea nitrogen [Mass/Vol] 36 mg/dL High 7-18 [facility] Comment on above: Performed By: #### P 8 ####[address] [address] Calcium [Mass/Vol] 8.9 mg/dL Normal 8.5-10.1 [facility] Comment on above: Performed By: #### P 8 ####[address] [address] Chloride [Moles/Vol] 97 mmol/L Low 98-107 [facility] Comment on above: Performed By: #### P 8 ####[facility] [place], [place] [address] Potassium [Moles/Vol] 3.9 mmol/L Normal 3.5-5.1 [facility] Comment on above: Performed By: #### P 8 ####[facility] [place], [place] [address] Sodium [Moles/Vol] 129 mmol/L Low 136-145 [facility] Comment on above: Performed By: #### P 8 ####[facility] [place], [place] [address] CASE MGT INIT ASSESon 2018 CASE MGT INIT ASSES HNO ID: [id number] Author: Charlee (Rn) MATT Lee Service: Care Management Author Type: Registered Nurse Type: Care Mgt Initial Assessment Filed: 06/10/2019 9:32 AM Note Text: CARE MANAGEMENT: ASSESSMENT AND DISCHARGE PLAN SERVICE DATE: 06/10/2019 SERVICE TIME: 9:20 AM PRIMARY CARE PHYSICIAN: Elizabeth Nelson DO ADMISSION STATUS: Inpatient Needs Prior to Discharge: Accepting Facility;Bed Availability;Precertifica tion;Discharge Transportation 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 Yes Is This a Planned Readmission? No: Infection Followed Up with Appointment Prior to Admission: No appointment scheduled Where Did the Patient Come From? [place] [facility] Intervention Taken to Avoid Future Readmission? IANDD, Wound Vac, rehab, follow up with Advance Directive: Current Advance Directive: None Lens Blocker Attempted to Assist with AD Completion: Yes Action: Education Provided(Not willing) Health Literacy: 1. How often do you need to have someone help you when you read instructions, pamphlets, or other written material from your doctor or pharmacy? Rarely - 2 2. How confident are you filling out medical forms by yourself? Quite a bit - 2 If Patient scores > 3 on either question, the following interventions were put into place: Use concrete and specific phrases, avoid medical jargon FUNCTIONAL AND COGNITIVE/BEHAVIORAL PRIOR TO ADMISSION: Baseline Mental Status: Alert AND Oriented, Person, Place , Time and Situation Functional Status: Needs Assistance Does Patient Currently Receive Any Community Services or Home Care? None Equipment Prior to Admission: Cane - Straight Walker Has the Patient Been in a Halfway Facility in the Past 30 days? Yes. Where and Dates: [facility] SOCIAL: Living Arrangement: Home, Home with parent/guardian Lives With: Father Financial Resources: Disabled Primary Contact: Extended Emergency Contact Information Primary Emergency Contact: DARWIN CANTOR Relation: Father Secondary Emergency Contact: Ingris Flowers Relation: Relative Supportive: Yes Other Important Patient Contacts: None Caregiver Assessment: Caregiver is ready, willing and able to meet the patient's needs as recommended by the inter-professional team? TBD Patient's transition needs and plan for meeting these needs: PT/OT, accepting facility, precert, transportation Does the patient have an acute stroke diagnosis, or has the patient had a stroke during this admission? No Medication Adherence: I am convinced of the importance of my prescription medication: Agree completely - 0 I worry that my prescription medication will do more harm than good to me Disagree completely - 0 I feel financially burdened by my [id number] expenses for my prescription medication: Disagree completely - 0 Patient is categorized as low risk < 2 Are you interested in bedside delivery of your medications? No Is the Patient Psychosocially Complex? No ASSESSMENT AND PLAN: Medical Needs: 2 or more chronic diseases Psychosocial Needs: None FREEDOM OF CHOICE EXPLAINED: Yes SNF Financial Disclosure Provided Preference: Return to [place] POTENTIAL TRANSITION PLANS Halfway Facility/Intermediate Care Facility Patient came from [facility]. Had been there approximately 10 days. To OR today for IANDD, application of Ext. Fixator and wound vac. +PCP, DME and Rx coverage. PT/OT to see following surgery. Anticipate plan to be return to [facility] when medically ready. SIGNATURE: Charlee Lee RN PATIENT NAME: Tori Cantor DATE: June 10, 2019 TIME: 9:20 AM PAGER/CONTACT #: [phone] [facility] CONSULTon 06-10-2019 CONSULT HNO ID: [id number] Author: Dnonell Jose Service: Infectious Disease Author Type: Physician Type: Consults Filed: 06/10/2019 10:17 PM Note Text: CONSULT: INFECTIOUS DISEASE SERVICE SERVICE DATE: 06/10/2019 SERVICE TIME: 1:46 PM REASON FOR CONSULT: Sepsis REQUESTING PHYSICIAN: Ramon PRIMARY CARE PHYSICIAN: Elizabeth Nelson, DO Subjective Mr. Cantor is a 44 year old PMHX signficant for DM Type I, HTN, IVDU, Pancreatitis, Tobacco abuse, who presented to the ED with c/o left LE swelling, wounds. He was seen in the ED 05/31/19, diagnosed with left ankle tri malleolar fracture/ dislocation. He was splinted in ED, discharged to SNF pending planned ORIF. He returned to the ED 06/08 dt above complaints, ankle was reduced again, lab work significant for leukocytosis. He was recommended admission but left AMA. States last IVDA 2 weeks ago, injection into FA. Upon return to the ED 06/09 he was afebrile, HR 92, BP 102/69, RA. WBC 27.5, LA 2.0, LFT's elevated. Left Ankle/ Tib Fib XR significant for displaced medial and lateral malleoli fractures with lateral subluxation of the ankle, soft tissue irregularity along the anteromedial aspect of the lower leg corresponding with tissue wound, soft tissue gas present, diffuse soft tissue swelling. Blood Cx sent 06/08 growing Staph Aureus in 4/4 bottles, Bacillus Species 1/4 bottles. He was started on Vanc/ Zosyn/ Clindamycin, admitted to surgical floor. Today he went to OR for Left Leg and Ankle debridement, external fixator, and wound vac. Intra operative abscess cultures obtained. ID consulted for further antimicrobial management. TMAX since admission 38.3. 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 - Pancreatitis 08/2014 - Tobacco abuse 05/27/2019 - Trimalleolar fracture of left ankle PAST SURGICAL HISTORY Procedure Laterality Date - NONE FAMILY HISTORY Problem Relation Age of Onset - Hypertension Mother - Diabetes Mother - Stroke Mother - Heart Mother CHF - Cataract Mother - Hypertension Father - COPD Father - Emphysema Father Social History Tobacco Use - Smoking status: Current Every Day Smoker Packs/day: 1.00 Types: Cigarettes - Smokeless tobacco: Never Used Substance Use Topics - Alcohol use: Yes Comment: socially - Drug use: Yes Types: Cocaine, Amphetamines Comment: hist of cocaine and marajuana use, fentanyl insulin detemir (LEVEMIR U-100 INSULIN SUBCUTANEOUS), Inject 20 Units subcutaneously twice daily., Disp: , Rfl: acetaminophen (TYLENOL) 325 mg tablet, Take 2 tablets by mouth every 6 hours as needed., Disp: , Rfl: insulin lispro (HUMALOG KWIKPEN INSULIN) 100 unit/mL inpn, Inject 14 Units subcutaneously three times daily before meals. (Patient taking differently: Inject 14 Units subcutaneously three times daily before meals. If glucose is 300 or higher ), Disp: , Rfl: lisinopril (ZESTRIL, PRINIVIL) 10 mg tablet, Take 1 tablet by mouth once daily for 15 days., Disp: 15 tablet, Rfl: 0, 05/26/[address] (PROTONIX) 40 mg tablet, Take 40 mg by mouth once daily. , Disp: , Rfl: , 05/26/2019 Lancets lancets, Use as instructed, Disp: 100 Each, Rfl: 11, Taking Insulin Dudley, Disposable, (BD ULTRAFINE III MINI PEN) 31 gauge x 3/16 ndle, USE WITH INSULIN PENS 4TIMES DAILY, Disp: 400 Each, Rfl: 3, Taking blood sugar diagnostic (ONETOUCH ULTRA TEST) test strip, CHECK BLOOD SUGARS 6 TIMES DAILY, Disp: 200 Strip, Rfl: 3, Taking DULoxetine (CYMBALTA) 30 mg capsule, Take 1 capsule by mouth once daily. (Patient taking differently: Take 60 mg by mouth twice daily. ), Disp: , Rfl: 0, 05/25/2019 pregabalin (LYRICA) 150 mg capsule, Take 150 mg by mouth once daily. , Disp: , Rfl: , Taking doxycycline monohydrate (AVIDOXY) 100 mg tablet, Take 1 tablet by mouth twice daily for 14 days., Disp: 28 tablet, Rfl: 0 Current Facility-Administered Medications Medication Dose Route Frequency - [MAR Hold due to Transfer] vancomycin dosing and monitoring per pharmacy OTHER As Directed - [MAR Hold due to Transfer] vancomycin iv piggyback 1.25 g in D5W 250 mL (VANCOCIN) 1.25 g INTRAVENOUS q 12 HR - [MAR Hold due to Transfer] piperacillin-tazobactam iv piggyback 3.375 g in dextrose (iso-osmotic) 50 mL (ZOSYN) 3.375 g INTRAVENOUS q 6 H - [MAR Hold due to Transfer] HYDROmorphone HCl 0.5 mg injection (DILAUDID) 0.5 mg INTRAVENOUS q 4 H PRN - [MAR Hold due to Transfer] pregabalin 150 mg cap(s) (LYRICA) 150 mg ORAL DAILY - [SEP Hold due to Transfer] lisinopril 10 mg tab(s) (ZESTRIL, PRINIVIL) 10 mg ORAL DAILY - [SEP Hold due to Transfer] pantoprazole DR 40 mg tab(s) (PROTONIX) 40 mg ORAL DAILY - [SEP Hold due to Transfer] DULoxetine 60 mg cap(s) (CYMBALTA) 60 mg ORAL BID - [MAR Hold due to Transfer] insulin glargine 10 Units pen (long acting) (LANTUS SOLOSTAR, BASAGLAR KWIKPEN) 10 Units SUBCUTANEOUS BID - [MAR Hold due to Transfer] enoxaparin 40 mg injection (LOVENOX) 40 mg SUBCUTANEOUS DAILY - [MAR Hold due to Transfer] NaCl 0.9% 3-5 mL 3-5 mL INTRAVENOUS q 12 H - [MAR Hold due to Transfer] NaCl 0.9% iv infusion 100 mL/hr INTRAVENOUS CONTINUOUS - [SEP Hold due to Transfer] ondansetron 4 mg tab(s) (ZOFRAN) 4 mg ORAL q 6 H PRN Or - [MAR Hold due to Transfer] ondansetron (PF) 4 mg injection (ZOFRAN) 4 mg INTRAVENOUS q 6 H PRN - [MAR Hold due to Transfer] docusate sodium 100 mg cap(s) (COLACE) 100 mg ORAL BID PRN - [MAR Hold due to Transfer] bisacodyl 10 mg suppository (DULCOLAX) 10 mg RECTAL DAILY PRN - [MAR Hold due to Transfer] dextrose 40 % 15 g 15 g ORAL PRN Or - [MAR Hold due to Transfer] glucagon 1 mg injection (GLUCAGEN) 1 mg INTRAMUSCULAR PRN Or - [MAR Hold due to Transfer] dextrose 50 % 12.5 g injection 12.5 g INTRAVENOUS PRN - [MAR Hold due to Transfer] insulin lispro pen (rapid acting) (HumaLOG KWIKPEN) SUBCUTANEOUS q 6 H - lactated ringers infusion 125 mL/hr INTRAVENOUS CONTINUOUS - fentaNYL 50 mcg/mL 50 mcg injection (SUBLIMAZE) 50 mcg INTRAVENOUS q 5 MIN PRN - HYDROmorphone HCl 0.5 mg injection (DILAUDID) 0.5 mg INTRAVENOUS q 10 MIN PRN - ondansetron (PF) 4 mg injection (ZOFRAN) 4 mg INTRAVENOUS PRN - meperidine (PF) 12.5 mg injection (DEMEROL) 12.5 mg INTRAVENOUS q 10 MIN PRN Allergies As of Date: 06/09/2019 (No Known Allergies) Fully Assessed 06/09/2019 COMPLETE REVIEW OF SYSTEMS: 10 point ROS complete, negative unless otherwise stated in HPI Objective PHYSICAL EXAM: Temp (24hrs), Av.2 ?C (98.9 ?F), Min:36.4 ?C (97.5 ?F), Max:38.3 ?C (100.9 ?F) GEN: Alert, pleasant, NAD HEENT: PERRL, moist oral mucosa, neck supple PULM: CTA bilateral, no rhonchi/wheezes. CV: RRR GI: soft, non distended, non tender, BSx4 : no chen, no CVAT EXT: LLE Surgical dressing with external fixation in place - no proximal erythema SKIN: no rash NEURO: no focal deficits, Alert and oriented x3 LINES: PIV sites clean Body mass index is 29.63 kg/m?. DATA: Diagnostic tests reviewed for today's visit: Recent Labs 06/10/19 0230 06/09/19 1935 06/09/19 1556 06/09/19 1548 06/08/192024 WBC 26.84* -- -- 27.50* 23.44* HB 10.3* -- -- 11.4* 12.2* PLT 206 -- -- 187 223 INR 1.09 -- -- 1.08 -- NA 129* -- -- 127* 128* K 3.9 -- -- 3.8 3.7 CO2 25 -- -- 26 30 BUN 36* -- -- 35* 31* CREAT 0.91 -- -- 1.03 0.78 AST 33 -- -- 44* -- ALT 36 -- -- 42 -- TBILI 2.2* -- -- 2.3* -- ALKPHOS 327* -- -- 386* -- WSR -- -- -- -- 84* CRP -- -- -- -- 23.80* LACT -- 1.4 2.0 -- -- MICROBIOLOGY: 06/08 Blood Cx / + Staph Aureus / + Bacilli IMAGES: reviewed Impression/Recommendation s 1. Staph Aureus Bacteremia 2/ # 3, r/o IE 2. Left Leg Abscess s/p I AND D 06/10 3. Left Ankle Fracture/ Dislocation s/p ORIF 06/10 4. Leukocytosis 5. Elevated CRP 6. Fever 7. DM Type I 8. Elevated Alk Phos 9. H/O IVDA RECOMMENDATIONS: Continue Vancomycin DC Zosyn/ Clindamycin Repeat Blood Cx x 2 Ordered TTE F/U ID and S of Staph Aureus F/U OR Cultures Monitor WBC/ Temps SIGNATURE: Cielo Ramirez APRN.CNP PATIENT NAME: Tori Cantor DATE: June 10, 2019 TIME: 1:46 PM PAGER: [phone] Seen and examined independently. Agree fully w above notes as documented by the RETAINING ROOM CUTTER. Donnell Garcia MD 06/10/2019 5:01 PM [facility] CONSULT PROGon 06-10-2019 CONSULT PROG HNO ID: [id number] Author: José Miguel Toribio (Pharmacist) Service: Pharmacy Author Type: Pharmacist Type: Consult Progress Note Filed: 06/10/2019 4:00 PM Note Text: PHARMACY VANCOMYCIN DOSING NOTE Patient Name: Tori Cantor Admission Date: 06/09/2019 Date of Consult: 06/10/2019 Time of Consult: 3:56 PM Indication: Skin/Soft tissue infection Goal Range: 10-20 mcg/mL RECOMMENDATIONS/PLAN: Pharmacy consulted for vancomycin dosing for Tori Cantor, a 44 year old, male who is being treated with vancomycin for Skin/Soft tissue infection 1. Patient is currently ordered Vancomycin 1.25 g IV q12h. Today is day #2 of therapy. 2. No vancomycin level has been drawn for this dosing regimen. 3. The present dose of vancomycin is the recommended dosage for this patient at this time. Continue therapy as prescribed. 4. The next vancomycin level has been ordered for 06/11/19 @ 1600, prior to 5th dose, changing renal function, (Completed) We will follow patient renal function, vancomycin levels and doses with you during the course of therapy. Additional recommendations will appear in follow up notes. If you have any questions, please contact Pharmacy at [phone]. Age: [age] year old Allergies: ALLERGIES No Known Allergies Last 3 Encounter Wt Readings: Date: Wt: 06/09/2019 91 kg (200 lb 9.9 oz) 06/08/2019 88 kg (194 lb) 06/02/2019 79.4 kg (175 lb) Last 1 Encounter Ht Readings: Date: Ht: 06/09/2019 175.3 cm (5' 9) CrCl: 114.3 mL/min Temp (24hrs), Av.2 ?C (99 ?F), Min:36.4 ?C (97.5 ?F), Max:38.3 ?C (100.9 ?F) - Current Temp: 37.5 ?C (99.5 ?F) Labs BUN (mg/dL) Date Value 06/10/2019 36 (H) 06/09/2019 35 (H) 06/08/2019 31 (H) Creatinine (mg/dL) Date Value 06/10/2019 0.91 06/09/2019 1.03 06/08/2019 0.78 WBC (thou/cmm) Date Value 06/10/2019 26.84 (HH) 06/09/2019 27.50 (HH) 06/08/2019 23.44 (H) Vancomycin Levels: No results found for: GARLAND Toribio, Pharmacist Normal [facility] Cult Bloodon 06-10-2019 Cult Blood Test performed at [facility] +Gram stain bottle I: Gram positive cocci in clusters No growth in other bottle. ORGANISM: *Staphylococcus aureus (ID: 1) cultured in bottle I For sensitivity report see Date/ [id number] Normal [facility] Comment on above: Performed By: #### C _BLO ####[place] [address] Cult and Smr FLIP and AERon 1 08-10-2018 Cult and Smr FLIP and AER Test performed at [facility] No anaerobic organisms cultured Moderate Gram positive cocci Many Polymorphonuclear leukocytes Many RBCs ORGANISM: *Staphylococcus aureus (ID: 1) Many For sensitivity report see Date/ Normal [facility] Comment on above: Performed By: #### C _ANA ####[facility] [place], [place] [address] HISTORY PHYSICALon 9 HISTORY PHYSICAL HNO ID: [id number] Author: Osito Reyes Service: Hospital Medicine Author Type: Physician Type: HANDP Filed: 06/10/2019 3:49 PM Note Text: DEPARTMENT OF HOSPITAL MEDICINE PROGRESS NOTE SERVICE DATE: 06/10/2019 SERVICE TIME: 3:37 PM Hospital Medicine/Primary Attending: Osito Reyes, DO NIGHT AND WEEKEND COVERAGE: After 7pm please page [phone] CHIEF COMPLAINT: L foot pain SUBJECTIVE: Pt seen and examined. States he has L foot pain, denies CP, SOB, vomiting, diarrhea, headache, fever/chills or abdominal pain. OBJECTIVE: PHYSICAL EXAM: BP 133/85 Pulse 96 Temp (Src) 99.5 (Oral) Resp 20 Ht 5' 9 (1.75m) Wt 200 lb 9.9 oz (91.0kg) SpO2 96% BMI 29.61 kg/(m2). O2 Therapy: Nasal Cannula, Liters: 3 General - AANDOx3, NAD HEENT- dry oral mucosae CV - RRR S1 S2, No M/R/G RESP - CTA B/L No wheezes, ronchi, rales ABD - soft, NT, ND +BS EXT - L foot wrapped in bandage, foot warm, 3(+) distal pulses NEURO - CN II-XII grossly intact, no focal deficits MEDICATIONS: Current Facility-Administered Medications Medication Dose Route Frequency - vancomycin dosing and monitoring per pharmacy OTHER As Directed - vancomycin iv piggyback 1.25 g in D5W 250 mL (VANCOCIN) 1.25 g INTRAVENOUS q 12 HR - HYDROmorphone HCl 0.5 mg injection (DILAUDID) 0.5 mg INTRAVENOUS q 4 H PRN - pregabalin 150 mg cap(s) (LYRICA) 150 mg ORAL DAILY - lisinopril 10 mg tab(s) (ZESTRIL, PRINIVIL) 10 mg ORAL DAILY - pantoprazole DR 40 mg tab(s) (PROTONIX) 40 mg ORAL DAILY - DULoxetine 60 mg cap(s) (CYMBALTA) 60 mg ORAL BID - insulin glargine 10 Units pen (long acting) (LANTUS SOLOSTAR, BASAGLAR KWIKPEN) 10 Units SUBCUTANEOUS BID - enoxaparin 40 mg injection (LOVENOX) 40 mg SUBCUTANEOUS DAILY - NaCl 0.9% 3-5 mL 3-5 mL INTRAVENOUS q 12 H - NaCl 0.9% iv infusion 100 mL/hr INTRAVENOUS CONTINUOUS - ondansetron 4 mg tab(s) (ZOFRAN) 4 mg ORAL q 6 H PRN Or - ondansetron (PF) 4 mg injection (ZOFRAN) 4 mg INTRAVENOUS q 6 H PRN - docusate sodium 100 mg cap(s) (COLACE) 100 mg ORAL BID PRN - bisacodyl 10 mg suppository (DULCOLAX) 10 mg RECTAL DAILY PRN - dextrose 40 % 15 g 15 g ORAL PRN Or - glucagon 1 mg injection (GLUCAGEN) 1 mg INTRAMUSCULAR PRN Or - dextrose 50 % 12.5 g injection 12.5 g INTRAVENOUS PRN - insulin lispro pen (rapid acting) (HumaLOG KWIKPEN) SUBCUTANEOUS q 6 H DATA: Diagnostic tests reviewed for today's visit: CBC: Recent Labs 06/10/19229 WBC 26.84* RBC 3.50* HB 10.3* HCT 30.1* PLT 206 MCV 86.0 MCH 29.4 MPV 11.8 RDW 13.1 Coags: Recent Labs 06/10/1922906/09/19 1548 INR 1.09 1.08 APTT -- 27.6 BMP: Recent Labs 06/10/19229 NA 129* K 3.9 CHLOR 97* CO2 25 BUN 36* CREAT 0.91 GLUC 270* CMP: Recent Labs 06/10/19229 NA 129* K 3.9 CHLOR 97* CO2 25 BUN 36* CREAT 0.91 GLUC 270* TPROT 5.4* CA 8.9 TBILI 2.2* ALKPHOS 327* ALT 36 AST 33 ANION 11 Cardiac Enzymes: No results for input(s): CK, MB, CKMB, TROPT in the last 24 hours. Liver Function, Amylase, Lipase: Recent Labs 06/10/19 0230 TPROT 5.4* ALB 1.8* ALT 36 AST 33 ALKPHOS 327* TBILI 2.2* MG/PHOS: No results for input(s): MG, P in the last 24 hours. Renal Panel: Recent Labs 06/10/19 0230 CREAT 0.91 BUN 36* GLUC 270* CA 8.9 CHLOR 97* K 3.9 CO2 25 NA 129* Heme: No results for input(s): RETICP, ABSRETIC, LD, VIKRAM, FE, TIBC, TRANSFERSAT in the last 24 hours. No results found for: UALBCR Assessment/Plan #Sepsis 2/2 LLE cellulitis and S. Aureus bacteremia -in setting of L trimalleolar ankle fracture -Ortho consult -IANDD and placement of external fixator today planned -continue IV Vanc -ID consult -monitor blood cultures #S. Aureus bacteremia -continue IV Vanc -monitor cultures #Hyponatremia- 2/2 dehydration and poor PO intake -continue IVF, daily BMP. Na improving. #Leukocytosis- 2/2 bacteremia and cellulitis as above. Monitor vitals. Daily CBC. #Hyperbilirubinemia and elevated ALP, elevated LFTs -possible 2/2 sepsis? Will trend liver enzymes, consider GI consult if not improving. Check US RUQ. #IDDM- refused lantus last night. Discussed importance of compliance. Will restart his regular home dosing now that he is eating. SSIC. Carb controlled diet. (On Lispro 14U with meals at home, restart once tolerating good meals.) #HTN-continue home lisinopril if BP stable #Medical noncompliance #IVDA- awaiting urine drug screen VTE Prophylaxis: Lovenox 40mg Sub Q Daily Disposition: SNF likely Plan of care discussed with: Provider, RN, Patient SIGNATURE: Osito Reyes DO PATIENT NAME: Tori Cantor DATE: June 10, 2019 TIME: 3:37 PM PAGER/CONTACT #: Team color pager Normal [facility] Hemogramon 06-10-2019 Erythrocyte distribution width (RBC) [Ratio] 13.1 % Normal 11.6-14.4 [facility] Comment on above: Performed By: #### C BC1 ####[facility] [place], [place] [address] Hematocrit (Bld) [Volume fraction] 30.1 % Low 40.1-51.0 [facility] Comment on above: Performed By: #### C BC1 ####[facility] [place], [place] [address] Hemoglobin (Bld) [Mass/Vol] 10.3 g/dL Low 13.7-17.5 [facility] Comment on above: Performed By: #### C BC1 ####[address] [address] MCH (RBC) [Entitic mass] 29.4 pg Normal 25.7-32.2 [facility] Comment on above: Performed By: #### C BC1 ####[address] [address] MCHC (RBC) [Mass/Vol] 34.2 % Normal 32.3-36.5 [facility] Comment on above: Performed By: #### C BC1 ####[address] [address] MCV (RBC) [Entitic vol] 86.0 fL Normal 83.2-95.6 [facility] Comment on above: Performed By: #### C BC1 ####[address] [address] Platelet mean volume (Bld) [Entitic vol] 11.8 fL Normal 8.7-12.0 [facility] Comment on above: Performed By: #### C BC1 ####[address] [address] Platelets (Bld) [#/Vol] 206 thou/cmm Normal 141-365 [facility] Comment on above: Performed By: #### C BC1 ####[address] [address] RBC (Bld) [#/Vol] 3.50 mil/cmm Low 4.63-6.08 [facility] Comment on above: Performed By: #### C BC1 ####[address] [address] RDW SD 40.9 fl Normal 36.1-45.8 [facility] Comment on above: Performed By: #### C BC1 ####[address] [address] WBC (Bld) [#/Vol] 26.84 thou/cmm Critically high 4.23-9.07 [facility] Comment on above: Result Comment: Repe ated AND verified Performed By: #### C BC1 ####[address] [address] Hepatic Panelon 06-10-2019 ALP [Catalytic activity/Vol] 327 U/L High 45-117 [facility] Comment on above: Performed By: #### H EPAP ####[address] [address] Bilirubin [Mass/Vol] 2.2 mg/dL High 0.2-1.0 [facility] Comment on above: Performed By: #### H EPAP ####[address] [address] Protein [Mass/Vol] 5.4 g/dL Low 6.4-8.2 [facility] [facility] Comment on above: Performed By: #### H EPAP ####[address] [address] ALT [Catalytic activity/Vol] 36 U/L Normal 12-78 [facility] Comment on above: Performed By: #### H EPAP ####[address] [address] AST [Catalytic activity/Vol] 33 U/L Normal 15-37 [facility] Comment on above: Performed By: #### H EPAP ####[address] [address] Bilirubin [Mass/Vol] 1.82 mg/dL High 0.00-0.20 [facility] Comment on above: Performed By: #### H EPAP ####[address] [address] Albumin [Mass/Vol] 1.8 g/dL Low 3.4-5.0 [facility] Comment on above: Performed By: #### H EPAP ####[place] [id number] NURSING PROGon 06-10-2019 NURSING PROG HNO ID: [id number] Author: Marilee AaronRn) MATT Enriquez Service: Nursing Author Type: Registered Nurse Type: Nursing Progress Note Filed: 06/10/2019 10:16 AM Note Text: Dr Fernandez notified of pts glucometer 314. No new orders received. [facility] NURSING PROG HNO ID: [id number] Author: Nelly AaronRn) MATT James Service: Nursing Author Type: Registered Nurse Type: Nursing Progress Note Filed: 06/10/2019 8:02 AM Note Text: Nursing Progress Note Patient Name: Tori Cantor Patient Location: [place] [id number] 1 Daily Note: Pt's labwork WBC count resulted in critical high at 26.84. Dr. Lyn notified. No orders received. Sound is aware pt has cellulitis and expected elevated WBC. This note was completed by: Nelly James RN [facility] OPERATIVE NOon 06-10-2019 OPERATIVE NO HNO ID: [id number] Author: Jayy Vogel Service: Orthopaedic Surgery Author Type: Physician Type: Operative Report Filed: 06/10/2019 8:04 PM Note Text: ORTHOPAEDIC OPERATIVE REPORT PATIENT NAME: Tori Cantor Surgery/Procedure Date: 06/10/2019 Incision/Procedure Start Time: 11:33 AM Incision Close/Procedure End Time: 12:47 PM Surgeon(s) and Innovation Manager(s): Surgeon(s) and Role: * Jayy Vogel - Primary * Velvet Phelps - Resident - Assisting No Additional Staff PRE-OPERATIVE DIAGNOSIS: Left trimalleolar ankle fracture-dislocation with left leg cellulitis and infected fracture blisters POST-OPERATIVE DIAGNOSIS: Left trimalleolar ankle fracture-dislocation with left leg cellulitis and infected fracture blisters SURGICAL PROCEDURE(S): 1) Spanning external fixator placement left ankle 2) Irrigation and debridement left leg superficial abscess/fracture blisters (25 cm x 10 cm x 0.5 cm) 3) Application wound vac left leg (25 cm x 10 cm x 0.5 cm - 4 pieces black foam) Anesthesia: General Implantable Devices: Synthes external fixator system Complications: None Specimens: Intraoperative culture swab x 2 left leg blisters (aerobic/anaerobic) Estimated Blood Loss: < 50 mls OPERATIVE INDICATIONS: This is a 44 year old male who sustained a left trimalleolar fracture-dislocation on or around 05/27/2019. He presented to the emergency department after a period of IV drug abuse with a large medial malleolar ulcer in addition to the fracture-dislocation. He underwent closed management with reduction, wound care and splinting. He was evaluated in the office 06/02/2019 with continued ulceration of the malleolus and was scheduled for definitive surgical fixation 06/10/2019 to allow continued soft tissue swelling resolution. The patient ambulated on the extremity at his facility and eventually removed the splint. The ankle re-dislocated with extensive fracture blister eruption and apparent superinfection. He underwent another reduction and splint application, and left the emergency department AMA rather than undergo admission and antibiotic administration prior to surgery. He then returned to the ED with progressive evidence of sepsis. Risks and benefits of temporary stabilization with external fixation and wound debridement were reviewed with the patient in detail. Anticipated complications have been reviewed with him multiple times, now exacerbated by noncompliance in addition to underlying peripheral neuropathy, poorly controlled diabetes, IVDA, and history of charcot degeneration of the contralateral limb. The extremity is very high risk for amputation. OPERATIVE PROCEDURE: The patient was brought to the operating room on the hospital bed. He was intubated per Anesthesia. The patient was then transferred to the operating table. The left lower extremity was pre-washed with chlorhexidine. It was padded prepped and sterilely draped for the procedure. The [place] [facility] timeout protocol was performed. Measurement of the extension of infected fracture blisters was taken at 25 cm long by 10 cm wide over the anterior left leg at the greatest dimension. The region was debrided with a curet down to dermis. The medial malleolar ulcer was debrided with a curet, and the eschar maintained to prevent exposing the bone without coverage. Two culture swabs were obtained within the subcutaneous soft tissues at the deepest portions of the wound. The region was irrigated thoroughly with saline. Two percutaneous incisions were made through skin with scalpel proximal to the extent of cellulitis over the anterior tibia distal to the knee joint. Two Synthes half pins were placed and confirmed in position with imaging. A medial calcaneal percutaneous incision was made and a Synthes cross pin was placed through the calcaneus. A spanning external fixator construct was made, and the ankle relatively reduced under imaging. The construct was tightened into position. Care was taken not to cover the anteromedial blisters in order to place a wound vac. A kickstand was created with bars to prevent heel pressure. Final images in multiple planes were saved. A wound vac was applied over the blistered bed, measuring 25 cm x 10 cm x 0.5 cm (four partial foam pieces utilized. A good seal was noted. Half pin and cross pin dressings were placed, followed by an morgan bandage. All draping was removed. The patient was extubated per Anesthesia. He was returned to the hospital bed and taken to the recovery room. POST-OPERATIVE PLAN: -Pain control (previously through pain management secondary to IVDA history). -Weight-bearing status: NWB LLE. STRICT RECOMMENDATION -Elevate operative extremity. Keep bolster under left knee. -Wound vac change on Thursday to homegoing vac (ActiVac already delivered). Supplied by [employer]. 25 cm x 10 cm x 0.5 cm at greatest diameter. -Management per primary -Antibiotics per primary; cultures pending. -Follow up HgbA1c. -DVT Prophylaxis: SCD to RLE, per primary for chemical prophylaxis. Okay from ortho standpoint -Discharge planning. Okay for discharge from ortho standpoint when medically stable. No plans for surgical intervention by orthopedics this admission, unless necessitated by progression of infection secondary to numerous risk factors already outlined. HIGH RISK FOR AMPUTATION -No family present to update regarding post-surgical state. -Dr. Uriarte covering next week, updated him regarding patient course thus far. I/primary surgeon/proceduralist performed the procedure with assistance. SIGNATURE: Jayy Vogel MD DATE: June 10, 2019 TIME: 7:43 PM Normal [facility] PROGRESSon 06-10-2019 PROGRESS HNO ID: [id number] Author: Valdemar Song Service: Orthopaedic Surgery Author Type: Resident Type: Progress Notes Filed: 06/10/2019 6:14 AM Note Text: Orthopaedic Surgery Inpatient Progress Note Assessment and Plan Tori Cantor is a 44 year old male extensive fracture blistering and cellulitis in setting of trimalleolar ankle fracture/dislocation status-post multiple closed-reductions. - Management per primary team. - Pain control. - DVT PPx: SCDs. Hold chemical prophylaxis for surgery tomorrow. - Antibiotics: Vancomycin and Zosyn. - Antibiotics: Per primary team, recommend broad-spectrum coverage. - Weight-bearing Status: NWB LLE. - Short leg splint placed and molded in ED. - Maintain splint on LLE. - Diet: Diabetic. NPO/IVF at midnight. - OR today for application of external fixator, irrigation and debridement, and application of wound vac to left ankle. - Plan of care discussed with patient who is in agreement. Subjective No acute events overnight. Pain well controlled. No fevers, chills, chest pain, or shortness of breath. No new complaints. Physical Examination Vitals BP 125/78 Pulse 116 Temp 37.2 ?C (99 ?F) (Oral) Resp 18 Ht 175.3 cm (5' 9) Wt 91 kg (200 lb 9.9 oz) SpO2 93% BMI 29.63 kg/m? General Alert and oriented. No acute distress. Cooperative with interview. Left Lower Extremity Short leg splint in place. Splint clean, dry, and intact. Alignment normal. No gross deformities. Decreased sensation in Damico/Sa/DP/SP/T distributions. Motor examination limited by splint. Wiggles all toes. BCR all digits. Labs Recent Labs 06/10/19 0230 06/09/19 1935 06/09/19 1556 06/09/19 1548 NA 129* -- -- 127* K 3.9 -- -- 3.8 CHLOR 97* -- -- 96* CO2 25 -- -- 26 BUN 36* -- -- 35* CREAT 0.91 -- -- 1.03 GLUC 270* -- -- 241* ANION 11 -- -- 9 CA 8.9 -- -- 9.4 ALB 1.8* -- -- 2.0* AST 33 -- -- 44* ALT 36 -- -- 42 ALKPHOS 327* -- -- 386* TBILI 2.2* -- -- 2.3* WBC 26.84* -- -- 27.50* HB 10.3* -- -- 11.4* HCT 30.1* -- -- 34.9* PLT 206 -- -- 187 LACT -- 1.4 2.0 -- INR 1.09 -- -- 1.08 Imaging No new orthopaedic imaging. Valdemar Song MD Orthopaedic Surgery, PGY-3 Pager: [phone] Ortho Pager: [phone] Normal [facility] Protimeon 06-10-2019 INR Coag (PPP) [Relative time] 1.09 {INR} Normal 0.90-1.30 [facility] Comment on above: Result Comment: Nimisha min K Antagonist (VKA) Therapeutic Range: INR 2 to 3 (Target INR of 2.5) Note: For patients treated with VKA drugs, such as warfarin, the [employer] [employer] 2012 Guideline recommends a therapeutic INR range of 2 to 3 (target INR of 2.5). This recommendation includes high-risk patients with antiphospholipid syndrome with previous arterial or venous thromboembolism, current-generation mechanical or bioprosthetic aortic heart valve replacement. Note: Patients with mechanical aortic valve replacement and additional risk factors for thromboembolic events (atrial fibrillation, previous thromboembolism, LV dysfunction, hypercoagulable conditions) or an older generation mechanical AVR (i.e., ball in-Cage) or any mechanical MVR should have a INR therapeutic range of 2.5 to 3.5 target INR of 3). Ugo GH, et al. Chest 2012; 141:7S-47S Anatoliy RA, et al. JAC 2017; 70: 252-289 Performed By: #### P T ####[address] [address] PT Coag (PPP) [Time] 11.7 s Normal 9.7-13.0 [facility] Comment on above: Performed By: #### P T ####[address] [address] Urine Drug Screenon 06-10-20 19 Urine Opiate see below Normal Non-Detected [facility] Comment on above: Result Comment: Dete cted (unconfirmed) Performed By: #### U DRG2 ####[address] [address] Urine PCP Non-detected Normal Non-Detected [facility] Comment on above: Performed By: #### U DRG2 ####[address] [address] Urine THC Non-detected Normal Non-Detected [facility] Comment on above: Result Comment: Urin e Drug Cutoff Levels Urine Amphetamine 500 ng/mL Urine Barbiturate 200 ng/mL Urine Benzodiazepines 200 ng/mL Urine Cocaine 150 ng/mL Urine Phencyclidine (PCP) 25 ng/mL Urine Opiates 300 ng/mL Urine THC 50 ng/mL The results of these analytes are unconfirmed and reported qualitatively as detected or non-detected relative to the cutoff value. Detected results indicate the sample is likely to contain the analyte. Non-detected results indicate that either the sample does not contain the analyte or it is present in concentrations below the cutoff level. This drug screen should be used for medical diagnostic purposes only. Performed By: #### U DRG2 ####[address] [address] Urine Amphetamine Non-detected Normal Non-Detected [facility] Comment on above: Performed By: #### U DRG2 ####[address] [address] Urine Barbiturates Non-detected Normal Non-Detected [facility] Comment on above: Performed By: #### U DRG2 ####[address] [address] Urine Benzodiazepine see below Normal Non-Detected [facility] Comment on above: Result Comment: Dete cted (unconfirmed) Performed By: #### U DRG2 ####[address] [address] Urine Cocaine Metab Non-detected Normal Non-Detected [facility] Comment on above: Performed By: #### U DRG2 ####[facility] [place], [place] [address] XR ANKLE 3V AP/LAT/OBL LTon 06-10-2019 XR ANKLE 3V AP/LAT/OBL LT * * *Final Report* * * DATE OF EXAM: Jun 10 2019 12:29PM AKO [id number] - XR ANKLE 3V AP/LAT/OBL LT / PROCEDURE REASON: ORIF * * * * Physician Interpretation * * * * Exam: Fluoroscopy performed during external fixation on 06/10/2019: Indication: Left ankle fracture. Finding: There are a total of 4 intraoperative fluoroscopic images submitted for interpretation. External fixation hardware demonstrated in the proximal left tibia and the calcaneus. Fluoroscopy was performed without a radiologist in attendance. Please refer to the procedure report by the performing physician for additional details. Total Fluoroscopy Time: 44 seconds. IMPRESSION: Intraoperative fluoroscopy as described above. Av Specialist: BEN Transcribe Date/Time: Jun 10 2019 5:07P Dictated by : MO SIDDIQUI MD This examination was interpreted and the report reviewed and electronically signed by: MO SIDDIQUI MD on Jun 10 2019 5:11PM EST Normal [facility] Activated PTTon 06-09-2019 aPTT Coag (Bld) [Time] 27.6 s Normal 23.0-32.4 [facility] Comment on above: Result Comment: Unfr actionated Heparin Therapeutic Ranges: Standard Heparin Nomogram: 53 to 78 seconds (anti-Xa level of 0.3 to 0.7 U/mL) Low Dose/ACS Nomogram: 49 to 67 seconds (anti-Xa level of 0.2 to 0.5 U/mL) Stroke Treatment Nomogram: 49 to 67 seconds (anti-Xa level of 0.2 to 0.5 U/mL) Note: The APTT therapeutic range has been determined for the current lot of laboratory APTT reagent in use throughout the [facility]. Performed By: #### G FR #### [facility] [address] [place] [id number] CONSULTon 06-09-2019 CONSULT HNO ID: [id number] Author: Jayy Vogel Service: Orthopaedic Surgery Author Type: Physician Type: Consults Filed: 06/10/2019 9:05 AM Note Text: Orthopaedic Surgery Consultation Chief Complaint: Left ankle pain and drainage Admitting Physician: Jayy Vogel MD Date: June 09, 2019 Time: 4:38 PM ORTHO STAFF: Patient seen and examined. Agree with resident assessment and plan noted below. Known patient with left ankle fracture dislocation and medial ulcer secondary to extended dislocated period after IVDA. The ankle was reduced and splinted, with redressing of the improving medial ulcer 06/02/2019. Patient ambulated in the splint at his facility and removed the splint. Given highly unstable trimalleolar fracture pattern that was previously dislocated, he redislocated the ankle. There has been worsening of the medial wound with extension of fracture blisters and cellulitis proximally. Had scheduled procedure for ORIF left ankle after office visit evaluation 06/02/2019, now with plan for external fixator application and application wound vac to the blistered region (note: this is not necrotizing fasciitis). This complication was discussed in detail with the patient, including the causative factors, before it occurred. Expect extended treatment in wound vac and antibiotic regimen before any definitive stabilization procedure can be attempted. High risk for extremity amputation. Discussed updated risks and benefits of planned procedure in detail with patient. No family present and he indicates no family will be available. Jayy Vogel MD History of Present Illness Tori Cantor is a 44 year old male with history of IVDA and DM (with peripheral neuropathy) who presents for repeat evaluation of left ankle pain and drainage. The patient has history of left trimalleolar ankle fracture/dislocation that was closed-reduced in the ED on 05/27/2019. At that time skin maceration was noted at the medial malleolus. The patient was temporarily admitted and discharged to a nursing facility. Since the time of discharge, the patient notes that he has not been compliant with non-weight bearing restrictions and has been ambulating on the ankle in the splint. He was seen in the ED last night after removing his own splint and noting worsening of the fracture blisters. He was again closed-reduced. At that time it was recommended that he be admitted for IV antibiotics and monitoring, but the patient left the ED AMA. He returns today complaining of increased drainage on the splint and worsening pain. He denies any fevers or chills. He denies any new trauma, but again endorses ambulating. Review of Systems A 10-point review of systems was completed and is otherwise non-contributory to the patient's presenting condition. History PAST MEDICAL HISTORY Diagnosis Date - Diabetes (HCC) - DKA (diabetic ketoacidosis) (HCC) 08/2014 - Hyperglycemia 05/27/2019 - Hypertension - IVDU (intravenous drug user) 05/27/2019 - Lactose intolerance 07/30/2016 - Left ankle joint deformity 05/27/2019 - Pancreatitis 08/2014 - Tobacco abuse 05/27/2019 - Trimalleolar fracture of left ankle PAST SURGICAL HISTORY Procedure Laterality Date - NONE HEPATITIS A(1 of 2 - Risk 2-dose series) due on 1975 DTAP,TDAP,TD(1 - Tdap) due on 1985 ONE PNEUMOVAX PRIOR TO AGE 65 due on 1990 ANNUAL PCP TEAM CHRONIC DISEASE VISIT due on 1992 BP CONTROLLED (<130/80) due on 1992 HEPATITIS B(1 of 3 - Risk 3-dose series) due on 1993 URINE ALBUMIN:CREATININE RATIO due on 11/01/2016 LDL CHOLESTEROL due on 11/01/2016 INFLUENZA(1) due on 03/20/2019 DIABETIC FOOT EXAM due on 04/02/2019 HBA1C due on 08/27/2019 DILATED RETINAL EXAM due on 01/27/2020 A review of the patient's history was completed and is otherwise non-contributory to the patient's presenting condition. Medications doxycycline monohydrate (AVIDOXY) 100 mg tablet Take 1 tablet by mouth twice daily for 14 days. levoFLOXacin (LEVAQUIN) 750 mg tablet Take 1 tablet by mouth once daily for 14 days. cyclobenzaprine (FLEXERIL) 10 mg tablet Take 0.5 tablets by mouth three times daily as needed. acetaminophen (TYLENOL) 325 mg tablet Take 2 tablets by mouth every 6 hours as needed. enoxaparin (LOVENOX) 40 mg/0.4 mL syrg Inject 0.4 mL subcutaneously q 24 HR. insulin glargine (LANTUS SOLOSTAR, BASAGLAR KWIKPEN) 100 unit/mL (3 mL) inpn Inject 20 Units subcutaneously twice daily. insulin lispro (HUMALOG KWIKPEN INSULIN) 100 unit/mL inpn Inject 14 Units subcutaneously three times daily before meals. lisinopril (ZESTRIL, PRINIVIL) 10 mg tablet Take 1 tablet by mouth once daily for [address] (PROTONIX) 40 mg tablet Take 40 mg by mouth once daily. Lancets lancets Use as instructed Insulin Dudley, Disposable, (BD ULTRAFINE III MINI PEN) 31 gauge x 3/16 ndle USE WITH INSULIN PENS 4TIMES DAILY blood sugar diagnostic (ONETOUCH ULTRA TEST) test strip CHECK BLOOD SUGARS 6 TIMES DAILY DULoxetine (CYMBALTA) 30 mg capsule Take 1 capsule by mouth once daily. pregabalin (LYRICA) 150 mg capsule Take 150 mg by mouth as needed (nerve pain). Allergies Patient has no known allergies. Family History Family History Reviewed Including Cardiac Diseases, Psychiatric Diseases, AND Substance Abuse Problem: Hypertension Relation: Mother Age of Onset: (Not Specified) Problem: Diabetes Relation: Mother Age of Onset: (Not Specified) Problem: Stroke Relation: Mother Age of Onset: (Not Specified) Problem: Heart Relation: Mother Age of Onset: (Not Specified) Comment: CHF Problem: Cataract Relation: Mother Age of Onset: (Not Specified) Problem: Hypertension Relation: Father Age of Onset: (Not Specified) Problem: COPD Relation: Father Age of Onset: (Not Specified) Problem: Emphysema Relation: Father Age of Onset: (Not Specified) Social History Employer And Job Title: None on file Years Of Education Completed: Not specified Marital Status: Social History Tobacco Use - Smoking status: Current Every Day Smoker Packs/day: 1.00 Types: Cigarettes - Smokeless tobacco: Never Used Substance Use Topics - Alcohol use: Yes Comment: socially - Drug use: Yes Types: Cocaine, Amphetamines Comment: hist of cocaine and marajuana use, fentanyl Physical Examination Vitals BP 115/75 Pulse 89 Temp 36.8 ?C (98.2 ?F) (Oral) Resp 15 Ht 175.3 cm (5' 9) Wt 88.5 kg (195 lb) SpO2 97% BMI 28.80 kg/m? General Alert and oriented. NAD. Left Lower Extremity Extensive swelling distal to the knee. Fracture blisters over the anterior and anteromedial leg with clear, serous drainage. Macerated skin over anteromedial leg with beefy red granulation tissue. Diffusely diminished sensation Damico/Sa/DP/SP/T. Motor intact EHL/DF/PF. DP pulses palpable; BCR all digits. Components of the patient's physical examination not noted above were not contributory to the present assessment. Labs Recent Labs 06/09/19 1556 06/09/19 1548 06/08/192024 NA -- 127* 128* K -- 3.8 3.7 CHLOR -- 96* 93* CO2 -- 26 30 BUN -- 35* 31* CREAT -- 1.03 0.78 GLUC -- 241* 174* ANION -- 9 9 CA -- 9.4 9.4 ALB -- 2.0* -- AST -- 44* -- ALT -- 42 -- ALKPHOS -- 386* -- TBILI -- 2.3* -- WBC -- 27.50* 23.44* HB -- 11.4* 12.2* HCT -- 34.9* 36.6* PLT -- 187 223 LACT 2.0 -- -- INR -- 1.08 -- Imaging X-rays of the left ankle were obtained, reviewed, and interpreted. Images show bimalleolar ankle fracture with lateral dislocation of the talus relative to the tibial plafond. Soft tissue gas in the anteromedial leg. Assessment and Plan Tori Cantor is a 44 year old male with extensive fracture blistering and cellulitis in setting of trimalleolar ankle fracture/dislocation status-post multiple closed-reductions. - Admit to Medicine - Pain control. - DVT PPx: SCDs. Hold chemical prophylaxis for surgery tomorrow. - Antibiotics: Per primary team, recommend broad-spectrum coverage. - Weight-bearing Status: NWB LLE. - Short leg splint placed and molded in ED. - Maintain splint on LLE. - Diet: Diabetic. NPO/IVF at midnight. - OR 06/10/19 for application of external fixator, irrigation and debridement, and application of wound vac to left ankle. - Consent obtained and placed in chart. - Discussed with Dr. Vogel who agrees with the above recommendations. [facility] CONSULT PROGon 06-09-2019 CONSULT PROG HNO ID: [id number] Author: José Miguel Toribio (Pharmacist) Service: Pharmacy Author Type: Pharmacist Type: Consult Progress Note Filed: 06/09/2019 9:04 PM Note Text: PHARMACY VANCOMYCIN DOSING NOTE Patient Name: Tori Cantor Admission Date: 06/09/2019 Date of Consult: 06/09/2019 Time of Consult: 9:01 PM Indication: Skin/Soft tissue infection Goal Range: 10-20 mcg/mL RECOMMENDATIONS/PLAN: Pharmacy consulted for vancomycin dosing for Tori Cantor, a 44 year old, male who is being treated with vancomycin for Skin/Soft tissue infection 1. Patient is currently ordered Vancomycin 1.25 g IV q12h. Today is day #1 of therapy. 2. No vancomycin level has been drawn for this dosing regimen. 3. The present dose of vancomycin is the recommended dosage for this patient at this time. Continue therapy as prescribed. 4. The next vancomycin level will be ordered for 06/11/19 @ 0400 prior to 4th dose, changing renal function unless clinically indicated sooner. (Pharmacy will order) We will follow patient renal function, vancomycin levels and doses with you during the course of therapy. Additional recommendations will appear in follow up notes. If you have any questions, please contact Pharmacy at [phone]. Age: [age] year old Allergies: ALLERGIES No Known Allergies Last 3 Encounter Wt Readings: Date: Wt: 06/09/2019 91 kg (200 lb 9.9 oz) 06/08/2019 88 kg (194 lb) 06/02/2019 79.4 kg (175 lb) Last 1 Encounter Ht Readings: Date: Ht: 06/09/2019 175.3 cm (5' 9) CrCl: 99.7 mL/min Temp (24hrs), Av.8 ?C (98.3 ?F), Min:36.8 ?C (98.2 ?F), Max:36.9 ?C (98.4 ?F) - Current Temp: 36.9 ?C (98.4 ?F) Labs BUN (mg/dL) Date Value 06/09/2019 35 (H) 06/08/2019 31 (H) 05/28/2019 19 (H) Creatinine (mg/dL) Date Value 06/09/2019 1.03 06/08/2019 0.78 05/28/2019 0.61 (L) WBC (thou/cmm) Date Value 06/09/2019 27.50 (HH) 06/08/2019 23.44 (H) 05/28/2019 6.18 Vancomycin Levels: No results found for: GARLAND Toribio, Pharmacist Normal [facility] CTA ABD/PEL/LOWER EXT W IVCO Non 06-09-2019 CTA ABD/PEL/LOWER EXT W IVCON * * *Final Report* * * DATE OF EXAM: Jun 09 2019 5:01PM [facility] 0122 - CTA ABD/PEL/LOWER EXT W IVCON / PROCEDURE REASON: Diminished pulses, leg * * * * Physician Interpretation * * * * EXAM TITLE: CTA ABD/PEL/LOWER EXT W IVCON DATE: 06/09/2019 COMPARISON: Radiographs performed one day ago CLINICAL INDICATION/HISTORY: Sudden onset of cold left leg and diminished pulses TECHNIQUE: CTA of the abdomen, pelvis and lower extremities performed as per routine protocol. Sagittal and coronal reconstruction images were generated. 3-D postprocessing was performed on a separate workstation. CT Radiation dose: Integrated Dose-length product (DLP) for this visit = 1131 mGy*cm. CT Dose Reduction Employed: Automated exposure control(AEC) and iterative recon IV contrast: 150 mL of Omnipaque 350 FINDINGS: CTA: The abdominal aorta is normal in course and caliber with mild atherosclerotic change. No aneurysm or dissection. The celiac axis and mesenteric arteries are patent as are solitary bilateral renal arteries. The iliac arteries are widely patent. At the left lower extremity, there is mild atherosclerotic change involving the common femoral and femoral arteries. The popliteal artery appears widely patent. The anterior and posterior arteries are patent into the foot. The peroneal artery can be seen to approximately the level of the ankle joint. At the right lower extremity, there is mild atherosclerotic change involving the common femoral and femoral arteries with mild areas of stenosis. The popliteal artery is widely patent. The anterior and posterior tibial arteries and peroneal artery are patent into the foot. ABDOMEN: Visualized lung bases are clear. Mild fatty infiltration of the liver. No discrete mass. Partially contracted, suboptimally evaluated gallbladder. No biliary ductal dilatation. The spleen and pancreas appear normal as do the adrenal glands and kidneys with the exception of a small cyst at the anterior lower pole of the left kidney. No bowel dilatation or wall thickening. Distal colonic diverticulosis. Small retroperitoneal lymph nodes. No free fluid. No acute bony abnormality. PELVIS: Enlarged, slightly heterogeneous lymph node within the left groin measuring approximately 2 x 2 centimeters on image 523 of series 6. This could be reactive or malignant. There are a couple of adjacent smaller nodes also depicted. LOWER EXTREMITIES: On the left, fractures of the distal tibia and fibula are again noted. There is diffuse soft tissue swelling and infiltration with numerous foci of air which could be posttraumatic or infectious in nature. Correlate clinically. On the right, Charcot changes are again noted at the midfoot. IMPRESSION: 1. Mild atherosclerotic disease involving the bilateral common femoral and femoral arteries. No obvious arterial occlusion or significant degree of stenosis although the left peroneal vein cannot be followed below the level of the ankle. 2. Distal left tibial and fibular fractures as seen on radiographs with associated soft tissue swelling and infiltration. Numerous foci of soft tissue gas could be posttraumatic or infectious in nature. Correlate clinically. 3. Left groin lymphadenopathy. This could be reactive or malignant. Appropriate follow-up indicated. Av Specialist: BEN Transcribe Date/Time: Jun 09 2019 5:10P Dictated by : ANGELITA YIN MD This examination was interpreted and the report reviewed and electronically signed by: ANGELITA YIN MD on Jun 09 2019 5:33PM EST Normal [facility] Comprehensive Panelon 2018 ALP [Catalytic activity/Vol] 386 U/L High 45-117 [facility] Comment on above: Performed By: #### G FR #### [facility] [address] [place], [place] [address] Bilirubin [Mass/Vol] 2.3 mg/dL High 0.2-1.0 [facility] Comment on above: Performed By: #### G FR #### [facility] [address] [place], [place] [address] Protein [Mass/Vol] 6.0 g/dL Low 6.4-8.2 [facility] Comment on above: Performed By: #### G FR #### [facility] [address] [place], [place] [address] ALT [Catalytic activity/Vol] 42 U/L Normal 12-78 [facility] Comment on above: Performed By: #### G FR #### [facility] [address] [place], [place] [address] Creatinine [Mass/Vol] 1.03 mg/dL Normal 0.67-1.17 [facility] Comment on above: Performed By: #### G FR #### [facility] [address] [place], [place] [address] AST [Catalytic activity/Vol] 44 U/L High 15-37 [facility] Comment on above: Performed By: #### G FR #### [facility] [address] [place], [place] [address] Albumin [Mass/Vol] 2.0 g/dL Low 3.4-5.0 [facility] Comment on above: Performed By: #### G FR #### [facility] [address] [place], [place] [address] Glucose [Mass/Vol] 241 mg/dL High 70-99 [facility] Comment on above: Performed By: #### G FR #### [facility] [address] [place], [place] [address] Urea nitrogen [Mass/Vol] 35 mg/dL High 7-18 [facility] Comment on above: Performed By: #### G FR #### [facility] [address] [place], [place] [address] Anion gap [Moles/Vol] 9 mmol/L Normal 8-16 [facility] Comment on above: Performed By: #### G FR #### [facility] [address] [place], [place] [address] Calcium [Mass/Vol] 9.4 mg/dL Normal 8.5-10.1 [facility] Comment on above: Performed By: #### G FR #### [facility] [address] [place], [place] [address] CO2 [Moles/Vol] 26 mmol/L Normal 21-32 [facility] Comment on above: Performed By: #### G FR #### [facility] [address] [place], [place] [address] Chloride [Moles/Vol] 96 mmol/L Low 98-107 [facility] Comment on above: Performed By: #### G FR #### [facility] [address] [place], [place] [address] Potassium [Moles/Vol] 3.8 mmol/L Normal 3.5-5.1 [facility] Comment on above: Performed By: #### G FR #### [facility] [address] [place], [place] [address] Sodium [Moles/Vol] 127 mmol/L Low 136-145 [facility] Comment on above: Performed By: #### G FR #### [facility] [address] [place] [address] Cult and Smr Aerobicon 06-09 Cult and Smr Aerobic Test performed at A [facility] No organisms seen Many Polymorphonuclear leukocytes Many Mononuclear cells ORGANISM: *Staphylococcus aureus (ID: 1) Rare For sensitivity report see Date/ ORGANISM: *Coagulase negative staphylococcus species (ID: 2) Rare Normal [facility] Comment on above: Performed By: #### C _AER ####[facility] [place] [address] ED NOTEon 06-09-2019 ED NOTE HNO ID: [id number] Author: Luis Mckinney RN Service: Emergency Medicine Author Type: Registered Nurse Type: ED Notes Filed: 06/09/2019 7:51 PM Note Text: Repeat lactic acid collected (blue on ice) and sent to the lab. [facility] ED NOTE HNO ID: [id number] Author: Luis Mckinney RN Service: Emergency Medicine Author Type: Registered Nurse Type: ED Notes Filed: 06/09/2019 7:28 PM Note Text: Wound culture taken by doctor at L lower extremity wound and sent to the lab. [facility] ED NOTE HNO ID: [id number] Author: Luis Mckinney RN Service: Emergency Medicine Author Type: Registered Nurse Type: ED Notes Filed: 06/09/2019 7:24 PM Note Text: Wound cultures sent [facility] ED NOTE HNO ID: [id number] Author: Julianna Ballard RN Service: Emergency Medicine Author Type: Registered Nurse Type: ED Notes Filed: 06/09/2019 4:54 PM Note Text: Pt at CT/xray [facility] ED NOTE HNO ID: [id number] Author: Julianna Ballard RN Service: Emergency Medicine Author Type: Registered Nurse Type: ED Notes Filed: 06/09/2019 4:33 PM Note Text: ED CT and xray made aware pt is ready, message left [facility] ED NOTE HNO ID: [id number] Author: Mitchell Pablo (Pharmacist) Service: Pharmacy Author Type: Pharmacist Type: ED Notes Filed: 06/09/2019 4:24 PM Note Text: PHARMACY SEPSIS TEAM RESPONSE Patient Name: Tori Cantor Allergies: ALLERGIES No Known Allergies Pharmacy participated in multidisciplinary team bedside response for a potential severe sepsis in the emergency department. Any identified issues relating to medication therapy have been discussed directly with the physician(s) currently providing care for this patient. Additional Comments: Signature: MITCHELL PABLO PHARMACIST Pager/Phone: [phone] Date of Service: 06/09/2019 Time of Service: 4:24 PM [facility] ED NOTE HNO ID: [id number] Author: Luis AaronRn) MATT Mckinney Service: Emergency Medicine Author Type: Registered Nurse Type: ED Notes Filed: 06/09/2019 7:24 PM Note Text: Septic team called by VIRGINIE PhippsX not needed d/t pt having them completed withing 24 hours per MD. [facility] ED NOTE HNO ID: [id number] Author: Abby (Rn) MATT Ragland Service: ? Author Type: Registered Nurse Type: ED Notes Filed: 06/09/2019 2:50 PM Note Text: Bed: 42-ED Expected date: Expected time: Means of arrival: Comments: [facility] ED NOTE HNO ID: [id number] Author: Luis AraonRn) MATT Mckinney Service: Emergency Medicine Author Type: Registered Nurse Type: ED Notes Filed: 06/09/2019 2:47 PM Note Text: Pt sent in to be admitted by Surgery d/t wounds and a fractured L foot. From [facility] and seen here yesterday by Orthopedics/surgery. Given oral antibiotic prescription. Leg/foot wrapped. C/o fever (99degrees this AM). Denies cp/sob/chills/N/V. [facility] ED NOTE HNO ID: [id number] Author: Mo Carrasquillo MD Service: Emergency Medicine Author Type: Physician Type: ED Notes Filed: 06/09/2019 10:40 AM Note Text: 44-year-old male seen by yesterday for open wound to leg. After workup, it was advised that patient should be admitted to hospital for further treatment and antibiotics for infection. Patient however decided himself out AGAINST MEDICAL ADVICE. I was called by ED pharmacist since 2 out of 2 blood cultures showed gram-positive cocci in clusters. I attempted to call patient but no answer and mailbox was not set up. Will attempt to call again later [facility] ED NOTE HNO ID: [id number] Author: Gucci (Rn) MATT Hernandez Service: Emergency Medicine Author Type: Registered Nurse Type: ED Notes Filed: 06/08/2019 10:59 PM Note Text: This RN called report to [place] and spoke to Nurse Trinidad [facility] ED PROV NOTEon 06-09-2019 ED PROV NOTE HNO ID: [id number] Author: Remy Oreilly MD Service: Emergency Medicine Author Type: Resident Type: ED Provider Notes Filed: 06/09/2019 11:43 PM Note Text: ----- Attestation signed by Ramesh Garcia DO at 06/22/2019 1:06 PM Signature: Ramesh Garcia DO Date: 06/22/2019 Time: 1:06 PM ----- ED Provider Note Patient Name: Tori Cantor SERVICE DATE: 06/09/19 History Patient presents with: Leg Pain: sent from his facility to by admited by surgery Wound Check Patient is a 44 year old male with past medical history of diabetes, hypertension, left trimalleolar fracture presents emergency department for leg swelling, pain, loss of sensation, skin breakdown and concerns for infection. Patient fractured his left ankle approximately 13 days ago, the time is where the hospital, evaluated by orthopedic's, splinted and discharged to a nursing facility. Patient was seen in the outpatient setting approximately 7 days ago. Patient came to the emergency department yesterday for leg swelling and pain and skin breakdown. He was reevaluated by orthopedics and had his fracture reduced again. Lab work was obtained showing a leukocytosis as well as blood cultures. It was recommended the patient be admitted but he left AGAINST MEDICAL ADVICE with oral antibiotics. He comes back today for increasing swelling and pain of the left lower extremity. Patient states he lost sensation in his foot approximately 2-3 days ago. Patient denies fever, chest pain, shortness of breath. 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 - Pancreatitis 08/2014 - Tobacco abuse 05/27/2019 - Trimalleolar fracture of left ankle PAST SURGICAL HISTORY Procedure Laterality Date - NONE FAMILY HISTORY Problem Relation Age of Onset - Hypertension Mother - Diabetes Mother - Stroke Mother - Heart Mother CHF - Cataract Mother - Hypertension Father - COPD Father - Emphysema Father Social History Tobacco Use - Smoking status: Current Every Day Smoker Packs/day: 1.00 Types: Cigarettes - Smokeless tobacco: Never Used Substance and Sexual Activity - Alcohol use: Yes Comment: socially - Drug use: Yes Types: Cocaine, Amphetamines Comment: hist of cocaine and marajuana use, fentanyl - Sexual activity: Not on file ALLERGIES No Known Allergies Review of Systems Constitutional: Negative for diaphoresis and fever. HENT: Negative for congestion and rhinorrhea. Eyes: Negative for pain and visual disturbance. Respiratory: Negative for cough and shortness of breath. Cardiovascular: Negative for chest pain and leg swelling. Gastrointestinal: Negative for abdominal pain and vomiting. Genitourinary: Negative for dysuria and frequency. Musculoskeletal: Positive for arthralgias and joint swelling. Negative for myalgias. Skin: Positive for color change and wound. Negative for pallor and rash. Neurological: Negative for syncope and headaches. Psychiatric/Behavioral: Negative for self-injury and suicidal ideas. Physical Exam BP 134/98 Pulse 106 Temp (Src) 98.4 (Temporal) Resp 16 Ht 5' 9 (1.75m) Wt 200 lb 9.9 oz (91.0kg) SpO2 100% BMI 29.61 kg/(m2). O2 Therapy: Room Air Physical Exam Vitals signs and nursing note reviewed. Constitutional: General: He is not in acute distress. Appearance: He is well-developed. He is not diaphoretic. HENT: Head: Normocephalic and atraumatic. Nose: Nose normal. Eyes: Pupils: Pupils are equal, round, and reactive to light. Neck: Musculoskeletal: Normal range of motion and neck supple. Cardiovascular: Rate and Rhythm: Normal rate and regular rhythm. Pulses: Dorsalis pedis pulses are detected w/ Doppler on the left side. Posterior tibial pulses are 0 on the left side. Pulmonary: Effort: Pulmonary effort is normal. Breath sounds: Normal breath sounds. Abdominal: General: Bowel sounds are normal. Palpations: Abdomen is soft. Musculoskeletal: Normal range of motion. General: No deformity. Comments: No calf tenderness Skin: General: Skin is warm and dry. Capillary Refill: Capillary refill takes 2 to 3 seconds. Neurological: General: No focal deficit present. Mental Status: He is alert and oriented to person, place, and time. Psychiatric: Behavior: Behavior normal. ED Sepsis Care Path Does the patient meet sepsis criteria? Yes Diagnostic Testing ED Labs Ordered and Reviewed CBC + AUTO DIFF (AK,AV,EU,FV,HL,MARIA TERESA,MM,SP) - Abnormal; Notable for the following components: Result Value Ref Range WBC 27.50 (*) 4.23 - 9.07 thou/cmm RBC 3.99 (*) 4.63 - 6.08 mil/cmm HGB 11.4 (*) 13.7 - 17.5 g/dL Hematocrit 34.9 (*) 40.1 - 51.0 % MPV 12.1 (*) 8.7 - 12.0 fl Abs. Neut(Anc) 22.72 (*) 1.78 - 5.38 thou/cmm Immature Grans # 1.07 (*) 0.00 - 0.05 thou/cmm Abs. Hutchinson 2.67 (*) 0.30 - 0.82 thou/cmm All other components within normal limits COMPREHENSIVE METABOLIC PANEL (AK,AV,EU,FV,HL,MARIA TERESA,MM,SP) - Abnormal; Notable for the following components: Sodium 127 (*) 136 - 145 mEq/L Chloride 96 (*) 98 - 107 mEq/L Glucose 241 (*) 70 - 99 mg/dL BUN 35 (*) 7 - 18 mg/dL Albumin 2.0 (*) 3.4 - 5.0 g/dL Protein, Total 6.0 (*) 6.4 - 8.2 g/dL AST 44 (*) 15 - 37 U/L Alkaline Phosphatase 386 (*) 45 - 117 U/L Bilirubin, Total 2.3 (*) 0.2 - 1.0 mg/dL All other components within normal limits LACTIC ACID,POC(AK) PROTHROMBIN TIME / PT (AK,AV,EU,FV,HL,MARIA TERESA,MM,SP) ACTIVATED PTT (AK,AV,EU,FV,HL,MARIA TERESA,MM,SP) LACTIC ACID,POC(AK) MDRD GFR LACTIC ACID / LACTATE (AK,AV,EU,FV,HL,MARIA TERESA,MM,SP) C-REACTIVE PROTEIN (CRP) (AK,AV,EU,FV,HL,MARIA TERESA,MM,SP) SED RATE ERYTHROCYTE (AK,AV,EU,FV,HL,MARIA TERESA,MM,SP) HGB A1C (AK,AV,EU,FV,HL,MARIA TERESA,MM,SP) ROUTINE CULTURE + STAIN (AK) BLOOD CULTURE DRAW (AV,EU,FV,HL,MARIA TERESA,MM,SP) BLOOD CULTURE DRAW (AV,EU,FV,HL,MARIA TERESA,MM,SP) Procedures ED Course / Clinical Impression ED Course as of Jun 09 2340 Remy (Hiro Oreilly's Documentation [facility] Jun 09, 2019 1543 Ortho paged [phone] 44 year old male presents with increased leg swelling, pain and loss of sensation. On initial assessment patient was found ill-appearing, no acute distress, vitals hemodynamically stable and afebrile. Initial concern for necrotizing fasciitis, osteomyelitis, compartment syndrome, vascular compromise. Consultation with pharmacy recommends vancomycin and Zosyn. Clindamycin was added after subcutaneous air deep in the soft tissue next to the bone, raising concern for necrotizing fasciitis. 1600 Subcutaneous air on bedside ultrasound raising the concern for necrotizing fasciitis. Findings discussed with the resident Dr.Conry. 1730 Initial lactic acid is 2. CBC shows leukocytosis of 28 which has increased from 23 yesterday, worsening anemia, no thrombocytopenia. Metabolic panel shows new hyponatremia with a sodium of 127, worsening but normal kidney function and slight elevation of AST. INR is normal at 1.08. X-rays obtained show displaced fracture of the left ankle as well as soft tissue gas present along the medial and lateral aspects of the lower leg, this is consistent with necrotizing fasciitis which I shared with the orthopedic residents. CTA of the lower extremities shows mild atherosclerotic disease but no occlusions. Redemonstration of the fracture and multiple soft tissue gas which I believe to be necrotizing fasciitis. Discussed with orthopedics [facility] again and they recommended medicine admission. [address] Banda who requests repeat blood cultures and wound cultures. Pt admitted for further management. Clinical Impressions as of Jun 09 2343 Sepsis, due to unspecified organism, unspecified whether acute organ dysfunction present (HCC) MDM / Disposition / Plan MDM SIGNATURE: MD Remy Vargas (Res) MD Denilson Resident 06/09/192342 Ramesh Garcia DO 06/22/19 1306 Normal [facility] ED PROV NOTE HNO ID: [id number] Author: Ramesh Garcia DO Service: Emergency Medicine Author Type: Physician Type: ED Provider Notes Filed: 06/09/2019 3:43 PM Note Text: Attending Note I personally saw and examined the patient. I reviewed the resident's note. I agree with the resident's assessment and plan unless otherwise noted. I supervised the zuñiga portion(s) of procedures performed on this patient by the resident physician. Patient comes in secondary to our request for 2 blood cultures that were positive for concerning organisms with a known concern for infection in his lower extremity where he has a orthopedic injury. On arrival to here his vitals are stable is mentating well, apparently yesterday the extremity other than some bruising doesn't look so bad today there is a purulent area over the anterior distal tib-fib region, his distal pulses are weak, and my concern is for a rapidly advancing infection with bacteremia. We will start broad-spectrum antibiotics, however his CT angiogram to evaluate the circulation in the lower extremity, involve orthopedics for debridement and definitive care. Ramesh Garcia DO 06/09/19 1543 Normal [facility] ED PROV NOTE HNO ID: [id number] Author: Jhoana Pimentel DO Service: Emergency Medicine Author Type: Physician Type: ED Provider Notes Filed: 06/08/2019 11:33 PM Note Text: I performed a history and physical examination of the patient and discussed the management with the resident. I reviewed the resident's note and agree with the documented findings and plan of care. The patient is a 44-year-old male with a known left trimalleolar fracture presenting to the emergency department for evaluation of a known open wound to the soft tissues. The patient has been seen in value by orthopedic surgery. He has not been on antibiotics. The patient states that he feels that the wound has now become infected. On exam, the patient has a low-grade temp of 37.8?C. He has diffuse swelling about the ankle joint. He has a chronic appearing 3 x 3 cm wound around the medial ankle. There are some fracture blisters that extend from the wound to the distal aspect of the leg. Some lesions are draining a serosanguineous appearing fluid. The soft tissue is soft. Peripheral pulses are palpable. Sensation is intact. Cap refill is less than 3 seconds in all digits. Diagnostic studies were obtained including labs and x-ray of the left lower extremity. The patient is hyponatremic with a sodium of 128. White blood cell count is elevated at 23.44. HANDH are stable. CRP is increased at 23.8 and ESR at 84 suggestive of infection. X-ray show persistent bimalleolar fracture, tibiotalar subluxation, and subcutaneous emphysema. Orthopedic surgery did perform bedside reduction of the ankle with improved alignment of the table tibial joint on postreduction assessment x-ray. Orthopedic surgery felt it was okay from an orthopedic standpoint for the patient to be placed on by mouth doxycycline as an outpatient and to follow-up with Dr. Hutton in the Outpatient clinic in 7-10 days. However, we felt that the patient would be best managed on an inpatient basis due to elevation of white blood cell count, the presence of subcutaneous emphysema, underlying fracture on x-ray, and hyponatremia on labs. The patient did initially consent to inpatient hospitalization. The patient's admission was accepted by the on-call [facility] hospitalist. The patient then elected to leave [place]. He is placed on antibiotics to cover against MRSA and also Pseudomonas. He was sent home on oral doxycycline and Levaquin. He is welcome to return for any worsening or recurrence of symptoms. Jhoana Pimentel, DO 06/08/19 2333 Normal [facility] HISTORY PHYSICALon HISTORY PHYSICAL HNO ID: [id number] Author: Destinee Navarro Service: Hospital Medicine Author Type: Physician Type: HANDP Filed: 06/10/2019 6:20 AM Note Text: DEPARTMENT OF HOSPITAL MEDICINE HISTORY AND PHYSICAL EXAM SERVICE DATE: 06/09/2019 SERVICE TIME: 7:45 PM Primary Care Physician: Elizabeth Nelson DO NIGHT AND WEEKEND COVERAGE: From 7am - 7pm, please call Sound After 7pm, please call cross cover pager #[phone] Subjective CHIEF COMPLAINT: Ankle swelling and pain HPI: This is a 44 year old male who presents with the above chief complaint. 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 In early May he was admitted with an ankle fracture and was placed in a splint and discharge to SNF. He presented back to the ER yesterday for an open wound to his soft tissues. Apparently he removed his splint. Fracture blisters were noted on the ER documentation. He had a reduction at that time. Admission was recommended however he elected to leave AMA. Presented back to the ER today with worsening pain and drainage. He apparently has been non complaint with weight bearing restrictions. Tonight he was seen by ortho and plans for OR tomorrow. Denies any fever, chills, chest pain or abdominal pain. 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 - Pancreatitis 08/2014 - Tobacco abuse 05/27/2019 - Trimalleolar fracture of left ankle PAST SURGICAL HISTORY Procedure Laterality Date - NONE FAMILY HISTORY Problem Relation Age of Onset - Hypertension Mother - Diabetes Mother - Stroke Mother - Heart Mother CHF - Cataract Mother - Hypertension Father - COPD Father - Emphysema Father Social History Tobacco Use - Smoking status: Current Every Day Smoker Packs/day: 1.00 Types: Cigarettes - Smokeless tobacco: Never Used Substance Use Topics - Alcohol use: Yes Comment: socially - Drug use: Yes Types: Cocaine, Amphetamines Comment: hist of cocaine and marajuana use, fentanyl HOME MEDICATIONS: Prior to Admission Medications Prescriptions Last Dose Informant Patient Reported? Taking? DULoxetine (CYMBALTA) 30 mg capsule Patient No Yes Sig: Take 1 capsule by mouth once daily. Patient taking differently: Take 60 mg by mouth twice daily. Insulin Dudley, Disposable, (BD ULTRAFINE III MINI PEN) 31 gauge x 3/16 ndle No Yes Sig: USE WITH INSULIN PENS 4TIMES DAILY Lancets lancets No Yes Sig: Use as instructed acetaminophen (TYLENOL) 325 mg tablet No Yes Sig: Take 2 tablets by mouth every 6 hours as needed. blood sugar diagnostic (WatchDoxUCH ULTRA TEST) test strip No Yes Sig: CHECK BLOOD SUGARS 6 TIMES DAILY doxycycline monohydrate (AVIDOXY) 100 mg tablet No No Sig: Take 1 tablet by mouth twice daily for 14 days. insulin detemir (LEVEMIR U-100 INSULIN SUBCUTANEOUS) Yes Yes Sig: Inject 20 Units subcutaneously twice daily. insulin lispro (HUMALOG KWIKPEN INSULIN) 100 unit/mL inpn No No Sig: Inject 14 Units subcutaneously three times daily before meals. Patient taking differently: Inject 14 Units subcutaneously three times daily before meals. If glucose is 300 or higher lisinopril (ZESTRIL, PRINIVIL) 10 mg tablet OTHER No Yes Sig: Take 1 tablet by mouth once daily for [address] (PROTONIX) 40 mg tablet OTHER Yes Yes Sig: Take 40 mg by mouth once daily. pregabalin (LYRICA) 150 mg capsule OTHER Yes No Sig: Take 150 mg by mouth once daily. Facility-Administered Medications: None ALLERGIES No Known Allergies REVIEW OF SYSTEM: All ROS are negative except those noted in HPI Objective PHYSICAL EXAM: BP 115/75 Pulse 80 Temp (Src) 98.2 (Oral) Resp 16 Ht 5' 9 (1.75m) Wt 195 lb (88.5kg) SpO2 98% BMI 28.78 kg/(m2). O2 Therapy: Room Air GENERAL: Alert, no distress, cooperative, NAD SKIN: did not take down dressing HEAD/SINUSES: Normocephalic, atraumatic, oral mucosa moist EYES: PERRLA, EOMI NECK: No jugulovenous distention, Supple, no adenopathy LUNGS: Lungs clear to auscultation, no wheezes, ronchi, or rales CARDIAC: RRR, Normal S1 and S2; no rubs, murmurs, or gallops ABDOMEN: Abdomen soft, non-tender, BS normal, No masses or organomegaly EXTREMITIES: left lower extremity splint in place did not take down. Per ortho fracture blisters and mascerated skin noted NEURO: Sensation grossly intact, Cranial nerves II-XII intact, moves all 4 extremities, speech was clear and coherent - no chronic chen DATA: Diagnostic tests reviewed for today's visit: Most recent labs and imaging results. CBC: Recent Labs 06/09/19 1548 WBC 27.50* RBC 3.99* HB 11.4* HCT 34.9* PLT 187 MCV 87.5 MCH 28.6 MPV 12.1* RDW 12.7 Coags: Recent Labs 06/09/19 1548 INR 1.08 APTT 27.6 BMP: Recent Labs 06/09/19 1548 NA 127* K 3.8 CHLOR 96* CO2 26 BUN 35* CREAT 1.03 GLUC 241* CMP: Recent Labs 06/09/19 1548 NA 127* K 3.8 CHLOR 96* CO2 26 BUN 35* CREAT 1.03 GLUC 241* TPROT 6.0* CA 9.4 TBILI 2.3* ALKPHOS 386* ALT 42 AST 44* ANION 9 Cardiac Enzymes: No results for input(s): CK, MB, CKMB, TROPT in the last 24 hours. Liver Function, Amylase, Lipase: Recent Labs 06/09/19 1548 TPROT 6.0* ALB 2.0* ALT 42 AST 44* ALKPHOS 386* TBILI 2.3* MG/PHOS: No results for input(s): MG, P in the last 24 hours. Renal Panel: Recent Labs 06/09/19 1548 CREAT 1.03 BUN 35* GLUC 241* CA 9.4 CHLOR 96* K 3.8 CO2 26 NA 127* Heme: No results for input(s): RETICP, ABSRETIC, LD, VKIRAM, FE, TIBC, TRANSFERSAT in the last 24 hours. Assessment/Plan 1. Sepsis - due to #2. Start vanc and zosyn for now. Cultures from yesterday are already positive. Repeat cultures. ID consult 2. LEFT lower extremity soft tissue infection/cellulitis - culture taken in ER. Vanc IV, zosyn for now. IV dilaudid for pain 3. Trimal ankle fracture - plan for OR per ortho 4. IVDA - check drug screen 5. IDDM - accu checks ac and hs. Decrease home lantus for tonight as he will be NPO. SSI every 6 hours while NPO 6. Medical non complaince 7. Hyponatremia - IV fluids 8. Elevated LFTs - re check in AM VTE Prophylaxis: Lovenox 40mg Sub Q Daily starting tomorrow night Lines, Drains, and Airways Line Peripheral 06/09/19 1200 Right Hand 22 Gauge less than 1 day Peripheral 06/09/19 1545 Left Wrist 20 Gauge less than 1 day Disposition: SNF Functional Status Prior to Admit: Ambulatory with WB restrictions Plan of care discussed with: Patient SIGNATURE: Destinee Navarro DO PATIENT NAME: Tori Cantor DATE: June 09, 2019 TIME: 7:45 PM PAGER/CONTACT #: [phone] Normal [facility] HOSPon 06-09-2019 HOSP Patient:Nadeem Cantor MRN: Height:5' 9(1.753 m) Weight:200 lb 9.9 oz (91 kg) Outpatient Medications as of 06/15/19: oxyCODONE IR (ROXICODONE) 5 mg immediate release tablet naloxone 4 mg/actuation nasal spray (NARCAN) cyclobenzaprine (FLEXERIL) 5 mg tablet ibuprofen (MOTRIN) 400 mg tablet insulin glargine (LANTUS SOLOSTAR U-100 INSULIN) 100 unit/mL (3 mL) inpn levoFLOXacin (LEVAQUIN) 750 mg tablet enoxaparin (LOVENOX) 40 mg/0.4 mL syrg oxyCODONE-acetaminophen (PERCOCET) 5-325 mg tablet insulin detemir U-100 (LEVEMIR FLEXTOUCH U-100 INSULN) 100 unit/mL (3 mL) inpn injection doxycycline monohydrate (AVIDOXY) 100 mg tablet acetaminophen (TYLENOL) 325 mg tablet insulin lispro (HUMALOG KWIKPEN INSULIN) 100 unit/mL inpn lisinopril (ZESTRIL, PRINIVIL) [address] (PROTONIX) 40 mg tablet Lancets lancets Insulin Dudley, Disposable, (BD ULTRAFINE III MINI PEN) 31 gauge x 3/16 ndle blood sugar diagnostic (ONETOUCH ULTRA TEST) test strip DULoxetine (CYMBALTA) 30 mg capsule pregabalin (LYRICA) 150 mg capsule Admission/Clinic Administered Medications as of 06/15/19: dextrose 5% in NaCl 0.9% iv infusion HYDROmorphone HCl 0.5-1 mg injection (DILAUDID) insulin NPH human 26 Units injection pen (intermediate acting) (NovoLIN N, HumuLIN N) insulin lispro 16 Units pen (rapid acting) (HumaLOG KWIKPEN) polyethylene glycol 3350 17 g packet (MIRALAX, GLYCOLAX) oxyCODONE IR 5-10 mg tab(s) (ROXICODONE) senna-docusate 8.6-50 mg 2 tablet (SENNA-S) pregabalin 100 mg cap(s) (LYRICA) ceFAZolin iv piggyback 2 g in D5W (iso-osmotic) 100 mL (ANCEF) perflutren lipid microspheres 1.1 mg/mL 1.3 mL injection (DEFINITY) insulin lispro pen (rapid acting) (HumaLOG KWIKPEN) DULoxetine 20 mg cap(s) (CYMBALTA) lisinopril 10 mg tab(s) (ZESTRIL, PRINIVIL) pantoprazole DR 40 mg tab(s) (PROTONIX) enoxaparin 40 mg injection (LOVENOX) NaCl 0.9% 3-5 mL ondansetron 4 mg tab(s) (ZOFRAN) ondansetron (PF) 4 mg injection (ZOFRAN) bisacodyl 10 mg suppository (DULCOLAX) dextrose 40 % 15 g glucagon 1 mg injection (GLUCAGEN) dextrose 50 % 12.5 g injection Problem List: Uncontrolled type 1 diabetes mellitus mild nonproliferative retinopathy without macular edema (HCC) [E10.3293, E10.65] Hypertension [I10] GERD (gastroesophageal reflux disease) [K21.9] Microalbuminuria [R80.9] History of diabetic gastroparesis [Z86.39] 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) [E10.42] Depression with anxiety [F41.8] Charcot's joint of right foot [M14.671] Hyperlipidemia [E78.5] Hep C w/o coma, chronic (HCC) [B18.2] History of drug abuse in remission (HCC) [F19.11] IVDU (intravenous drug user) [F19.90] Tobacco abuse [Z72.0] Left ankle joint deformity [M21.962] Hyperglycemia [R73.9] Nicotine use disorder, F17.2 [F17.200] Closed fracture of left ankle [S82.892A] Sepsis (HCC) [A41.9] Allergies: No Known Allergies Date Verified:06/15/19 Lab Values Lab Value Units Date High Low POTA* 4.1 mEq/L 06/15/2019 5.1 3.5 SAWYER* 27.3 % 06/15/2019 51.0 40.1 Progress Notes (): Luis Mckinney, RN, RN 06/09/2019 2:47 PM Signed Pt sent in to be admitted by Surgery d/t wounds and a fractured L foot. From [facility] and seen here yesterday by Orthopedics/surgery. Given oral antibiotic prescription. Leg/foot wrapped. C/o fever (99degrees this AM). Denies cp/sob/chills/N/V. Abby Ragland RN, RN 06/09/2019 2:50 PM Signed Bed: 42-ED Expected date: Expected time: Means of arrival: Comments: [facility] Luis Mckinney, RN, RN 06/09/2019 7:24 PM Addendum Septic team called by Dr. Oreilly, BCX not needed d/t pt having them completed withing 24 hours per MD. Previous Version Ramesh Garcia DO, 06/09/2019 3:43 PM Signed Attending Note I personally saw and examined the patient. I reviewed the resident's note. I agree with the resident's assessment and plan unless otherwise noted. I supervised the zuñiga portion(s) of procedures performed on this patient by the resident physician. Patient comes in secondary to our request for 2 blood cultures that were positive for concerning organisms with a known concern for infection in his lower extremity where he has a orthopedic injury. On arrival to here his vitals are stable is mentating well, apparently yesterday the extremity other than some bruising doesn't look so bad today there is a purulent area over the anterior distal tib-fib region, his distal pulses are weak, and my concern is for a rapidly advancing infection with bacteremia. We will start broad-spectrum antibiotics, however his CT angiogram to evaluate the circulation in the lower extremity, involve orthopedics for debridement and definitive care. Ramesh Garcia, 06/09/19 1543 Remy Oreilly MD, MD 06/09/2019 11:43 PM Cosign Needed ED Provider Note Patient Name: Tori Cantor SERVICE DATE: 06/09/19 History Patient presents with: Leg Pain: sent from his facility to by admited by surgery Wound Check Patient is a 44 year old male with past medical history of diabetes, hypertension, left trimalleolar fracture presents emergency department for leg swelling, pain, loss of sensation, skin breakdown and concerns for infection. Patient fractured his left ankle approximately 13 days ago, the time is where the hospital, evaluated by orthopedic's, splinted and discharged to a nursing facility. Patient was seen in the outpatient setting approximately 7 days ago. Patient came to the emergency department yesterday for leg swelling and pain and skin breakdown. He was reevaluated by orthopedics and had his fracture reduced again. Lab work was obtained showing a leukocytosis as well as blood cultures. It was recommended the patient be admitted but he left AGAINST MEDICAL ADVICE with oral antibiotics. He comes back today for increasing swelling and pain of the left lower extremity. Patient states he lost sensation in his foot approximately 2-3 days ago. Patient denies fever, chest pain, shortness of breath. 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 - Pancreatitis 08/2014 - Tobacco abuse 05/27/2019 - Trimalleolar fracture of left ankle PAST SURGICAL HISTORY Procedure Laterality Date - NONE FAMILY HISTORY Problem Relation Age of Onset - Hypertension Mother - Diabetes Mother - Stroke Mother - Heart Mother CHF - Cataract Mother - Hypertension Father - COPD Father - Emphysema Father Social History Tobacco Use - Smoking status: Current Every Day Smoker Packs/day: 1.00 Types: Cigarettes - Smokeless tobacco: Never Used Substance and Sexual Activity - Alcohol use: Yes Comment: socially - Drug use: Yes Types: Cocaine, Amphetamines Comment: hist of cocaine and marajuana use, fentanyl - Sexual activity: Not on file ALLERGIES No Known Allergies Review of Systems Constitutional: Negative for diaphoresis and fever. HENT: Negative for congestion and rhinorrhea. Eyes: Negative for pain and visual disturbance. Respiratory: Negative for cough and shortness of breath. Cardiovascular: Negative for chest pain and leg swelling. Gastrointestinal: Negative for abdominal pain and vomiting. Genitourinary: Negative for dysuria and frequency. Musculoskeletal: Positive for arthralgias and joint swelling. Negative for myalgias. Skin: Positive for color change and wound. Negative for pallor and rash. Neurological: Negative for syncope and headaches. Psychiatric/Behavioral: Negative for self-injury and suicidal ideas. Physical Exam BP 134/98 Pulse 106 Temp (Src) 98.4 (Temporal) Resp 16 Ht 5' 9 (1.75m) Wt 200 lb 9.9 oz (91.0kg) SpO2 100% BMI 29.61 kg/(m2). O2 Therapy: Room Air Physical Exam Vitals signs and nursing note reviewed. Constitutional: General: He is not in acute distress. Appearance: He is well-developed. He is not diaphoretic. HENT: Head: Normocephalic and atraumatic. Nose: Nose normal. Eyes: Pupils: Pupils are equal, round, and reactive to light. Neck: Musculoskeletal: Normal range of motion and neck supple. Cardiovascular: Rate and Rhythm: Normal rate and regular rhythm. Pulses: Dorsalis pedis pulses are detected w/ Doppler on the left side. Posterior tibial pulses are 0 on the left side. Pulmonary: Effort: Pulmonary effort is normal. Breath sounds: Normal breath sounds. Abdominal: General: Bowel sounds are normal. Palpations: Abdomen is soft. Musculoskeletal: Normal range of motion. General: No deformity. Comments: No calf tenderness Skin: General: Skin is warm and dry. Capillary Refill: Capillary refill takes 2 to 3 seconds. Neurological: General: No focal deficit present. Mental Status: He is alert and oriented to person, place, and time. Psychiatric: Behavior: Behavior normal. ED Sepsis Care Path Does the patient meet sepsis criteria? Yes Diagnostic Testing ED Labs Ordered and Reviewed CBC + AUTO DIFF (AK,AV,EU,FV,HL,MARIA TERESA,MM,SP) - Abnormal; Notable for the following components: Result Value Ref Range WBC 27.50 (*) 4.23 - 9.07 thou/cmm RBC 3.99 (*) 4.63 - 6.08 mil/cmm HGB 11.4 (*) 13.7 - 17.5 g/dL Hematocrit 34.9 (*) 40.1 - 51.0 % MPV 12.1 (*) 8.7 - 12.0 fl Abs. Neut(Anc) 22.72 (*) 1.78 - 5.38 thou/cmm Immature Grans # 1.07 (*) 0.00 - 0.05 thou/cmm Abs. Hutchinson 2.67 (*) 0.30 - 0.82 thou/cmm All other components within normal limits COMPREHENSIVE METABOLIC PANEL (AK,AV,EU,FV,HL,MARIA TERESA,MM,SP) - Abnormal; Notable for the following components: Sodium 127 (*) 136 - 145 mEq/L Chloride 96 (*) 98 - 107 mEq/L Glucose 241 (*) 70 - 99 mg/dL BUN 35 (*) 7 - 18 mg/dL Albumin 2.0 (*) 3.4 - 5.0 g/dL Protein, Total 6.0 (*) 6.4 - 8.2 g/dL AST 44 (*) 15 - 37 U/L Alkaline Phosphatase 386 (*) 45 - 117 U/L Bilirubin, Total 2.3 (*) 0.2 - 1.0 mg/dL All other components within normal limits LACTIC ACID,POC(AK) PROTHROMBIN TIME / PT (AK,AV,EU,FV,HL,MARIA TERESA,MM,SP) ACTIVATED PTT (AK,AV,EU,FV,HL,MARIA TERESA,MM,SP) LACTIC ACID,POC(AK) MDRD GFR LACTIC ACID / LACTATE (AK,AV,EU,FV,HL,MARIA TERESA,MM,SP) C-REACTIVE PROTEIN (CRP) (AK,AV,EU,FV,HL,MARIA TERESA,MM,SP) SED RATE ERYTHROCYTE (AK,AV,EU,FV,HL,MARIA TERESA,MM,SP) HGB A1C (AK,AV,EU,FV,HL,MARIA TERESA,MM,SP) ROUTINE CULTURE + STAIN (AK) BLOOD CULTURE DRAW (AV,EU,FV,HL,MARIA TERESA,MM,SP) BLOOD CULTURE DRAW (AV,EU,FV,HL,MARIA TERESA,MM,SP) Procedures ED Course / Clinical Impression ED Course as of Jun 09 2343 Remy Oreilly's Documentation Jazz Jun 09, 2019 1544 Ortho paged [phone] 44 year old male presents with increased leg swelling, pain and loss of sensation. On initial assessment patient was found ill-appearing, no acute distress, vitals hemodynamically stable and afebrile. Initial concern for necrotizing fasciitis, osteomyelitis, compartment syndrome, vascular compromise. Consultation with pharmacy recommends vancomycin and Zosyn. Clindamycin was added after subcutaneous air deep in the soft tissue next to the bone, raising concern for necrotizing fasciitis. 1600 Subcutaneous air on bedside ultrasound raising the concern for necrotizing fasciitis. Findings discussed with the resident . 1730 Initial lactic acid is 2. CBC shows leukocytosis of 28 which has increased from 23 yesterday, worsening anemia, no thrombocytopenia. Metabolic panel shows new hyponatremia with a sodium of 127, worsening but normal kidney function and slight elevation of AST. INR is normal at 1.08. X-rays obtained show displaced fracture of the left ankle as well as soft tissue gas present along the medial and lateral aspects of the lower leg, this is consistent with necrotizing fasciitis which I shared with the orthopedic residents. CTA of the lower extremities shows mild atherosclerotic disease but no occlusions. Redemonstration of the fracture and multiple soft tissue gas which I believe to be necrotizing fasciitis. Discussed with orthopedics [facility] again and they recommended medicine admission. [address] Banda who requests repeat blood cultures and wound cultures. Pt admitted for further management. Clinical Impressions as of Jun 09 2343 Sepsis, due to unspecified organism, unspecified whether acute organ dysfunction present (HCC) MDM / Disposition / Plan MDM SIGNATURE: MD Remy Vargas Res, MD Resident 06/09/[id number] JADYN CEJA 06/09/2019 4:24 PM Signed PHARMACY SEPSIS TEAM RESPONSE Patient Name: Tori Cantor Allergies: ALLERGIES No Known Allergies Pharmacy participated in multidisciplinary team bedside response for a potential severe sepsis in the emergency department. Any identified issues relating to medication therapy have been discussed directly with the physician(s) currently providing care for this patient. Additional Comments: Signature: JADYN CEJA Pager/Phone: [phone] Date of Service: 06/09/2019 Time of Service: 4:24 PM Julianna Ballard, RN, RN 06/09/2019 4:[address] and xray made aware pt is ready, message left aJyy Vogel MD 06/10/2019 9:05 AM Signed Orthopaedic Surgery Consultation Chief Complaint: Left ankle pain and drainage Admitting Physician: Jayy Vogel MD Date: June 09, 2019 Time: 4:38 PM ORTHO STAFF: Patient seen and examined. Agree with resident assessment and plan noted below. Known patient with left ankle fracture dislocation and medial ulcer secondary to extended dislocated period after IVDA. The ankle was reduced and splinted, with redressing of the improving medial ulcer 06/02/2019. Patient ambulated in the splint at his facility and removed the splint. Given highly unstable trimalleolar fracture pattern that was previously dislocated, he redislocated the ankle. There has been worsening of the medial wound with extension of fracture blisters and cellulitis proximally. Had scheduled procedure for ORIF left ankle after office visit evaluation 06/02/2019, now with plan for external fixator application and application wound vac to the blistered region (note: this is not necrotizing fasciitis). This complication was discussed in detail with the patient, including the causative factors, before it occurred. Expect extended treatment in wound vac and antibiotic regimen before any definitive stabilization procedure can be attempted. High risk for extremity amputation. Discussed updated risks and benefits of planned procedure in detail with patient. No family present and he indicates no family will be available. Jayy Vogel MD History of Present Illness Tori Cantor is a 44 year old male with history of IVDA and DM (with peripheral neuropathy) who presents for repeat evaluation of left ankle pain and drainage. The patient has history of left trimalleolar ankle fracture/dislocation that was closed-reduced in the ED on 05/27/2019. At that time skin maceration was noted at the medial malleolus. The patient was temporarily admitted and discharged to a nursing facility. Since the time of discharge, the patient notes that he has not been compliant with non-weight bearing restrictions and has been ambulating on the ankle in the splint. He was seen in the ED last night after removing his own splint and noting worsening of the fracture blisters. He was again closed-reduced. At that time it was recommended that he be admitted for IV antibiotics and monitoring, but the patient left the ED AMA. He returns today complaining of increased drainage on the splint and worsening pain. He denies any fevers or chills. He denies any new trauma, but again endorses ambulating. Review of Systems A 10-point review of systems was completed and is otherwise non-contributory to the patient's presenting condition. History PAST MEDICAL HISTORY Diagnosis Date - Diabetes (HCC) - DKA (diabetic ketoacidosis) (HCC) 08/2014 - Hyperglycemia 05/27/2019 - Hypertension - IVDU (intravenous drug user) 05/27/2019 - Lactose intolerance 07/30/2016 - Left ankle joint deformity 05/27/2019 - Pancreatitis 08/2014 - Tobacco abuse 05/27/2019 - Trimalleolar fracture of left ankle PAST SURGICAL HISTORY Procedure Laterality Date - NONE HEPATITIS A(1 of 2 - Risk 2-dose series) due on 1975 DTAP,TDAP,TD(1 - Tdap) due on 1985 ONE PNEUMOVAX PRIOR TO AGE 65 due on 1990 ANNUAL PCP TEAM CHRONIC DISEASE VISIT due on 1992 BP CONTROLLED (<130/80) due on 1992 HEPATITIS B(1 of 3 - Risk 3-dose series) due on 1993 URINE ALBUMIN:CREATININE RATIO due on 11/01/2016 LDL CHOLESTEROL due on 11/01/2016 INFLUENZA(1) due on 03/20/2019 DIABETIC FOOT EXAM due on 04/02/2019 HBA1C due on 08/27/2019 DILATED RETINAL EXAM due on 01/27/2020 A review of the patient's history was completed and is otherwise non-contributory to the patient's presenting condition. Medications doxycycline monohydrate (AVIDOXY) 100 mg tablet Take 1 tablet by mouth twice daily for 14 days. levoFLOXacin (LEVAQUIN) 750 mg tablet Take 1 tablet by mouth once daily for 14 days. cyclobenzaprine (FLEXERIL) 10 mg tablet Take 0.5 tablets by mouth three times daily as needed. acetaminophen (TYLENOL) 325 mg tablet Take 2 tablets by mouth every 6 hours as needed. enoxaparin (LOVENOX) 40 mg/0.4 mL syrg Inject 0.4 mL subcutaneously q 24 HR. insulin glargine (LANTUS SOLOSTAR, BASAGLAR KWIKPEN) 100 unit/mL (3 mL) inpn Inject 20 Units subcutaneously twice daily. insulin lispro (HUMALOG KWIKPEN INSULIN) 100 unit/mL inpn Inject 14 Units subcutaneously three times daily before meals. lisinopril (ZESTRIL, PRINIVIL) 10 mg tablet Take 1 tablet by mouth once daily for [address] (PROTONIX) 40 mg tablet Take 40 mg by mouth once daily. Lancets lancets Use as instructed Insulin Dudley, Disposable, (BD ULTRAFINE III MINI PEN) 31 gauge x 3/16 ndle USE WITH INSULIN PENS 4TIMES DAILY blood sugar diagnostic (play140TOUCH ULTRA TEST) test strip CHECK BLOOD SUGARS 6 TIMES DAILY DULoxetine (CYMBALTA) 30 mg capsule Take 1 capsule by mouth once daily. pregabalin (LYRICA) 150 mg capsule Take 150 mg by mouth as needed (nerve pain). Allergies Patient has no known allergies. Family History Family History Reviewed Including Cardiac Diseases, Psychiatric Diseases, AND Substance Abuse Problem: Hypertension Relation: Mother Age of Onset: (Not Specified) Problem: Diabetes Relation: Mother Age of Onset: (Not Specified) Problem: Stroke Relation: Mother Age of Onset: (Not Specified) Problem: Heart Relation: Mother Age of Onset: (Not Specified) Comment: CHF Problem: Cataract Relation: Mother Age of Onset: (Not Specified) Problem: Hypertension Relation: Father Age of Onset: (Not Specified) Problem: COPD Relation: Father Age of Onset: (Not Specified) Problem: Emphysema Relation: Father Age of Onset: (Not Specified) Social History Employer And Job Title: None on file Years Of Education Completed: Not specified Marital Status: Social History Tobacco Use - Smoking status: Current Every Day Smoker Packs/day: 1.00 Types: Cigarettes - Smokeless tobacco: Never Used Substance Use Topics - Alcohol use: Yes Comment: socially - Drug use: Yes Types: Cocaine, Amphetamines Comment: hist of cocaine and marajuana use, fentanyl Physical Examination Vitals BP 115/75 Pulse 89 Temp 36.8 ?C (98.2 ?F) (Oral) Resp 15 Ht 175.3 cm (5' 9) Wt 88.5 kg (195 lb) SpO2 97% BMI 28.80 kg/m? General Alert and oriented. NAD. Left Lower Extremity Extensive swelling distal to the knee. Fracture blisters over the anterior and anteromedial leg with clear, serous drainage. Macerated skin over anteromedial leg with beefy red granulation tissue. Diffusely diminished sensation Damico/Sa/DP/SP/T. Motor intact EHL/DF/PF. DP pulses palpable; BCR all digits. Components of the patient's physical examination not noted above were not contributory to the present assessment. Labs Recent Labs 06/09/19 1556 06/09/19 1548 06/08/192024 NA -- 127* 128* K -- 3.8 3.7 CHLOR -- 96* 93* CO2 -- 26 30 BUN -- 35* 31* CREAT -- 1.03 0.78 GLUC -- 241* 174* ANION -- 9 9 CA -- 9.4 9.4 ALB -- 2.0* -- AST -- 44* -- ALT -- 42 -- ALKPHOS -- 386* -- TBILI -- 2.3* -- WBC -- 27.50* 23.44* HB -- 11.4* 12.2* HCT -- 34.9* 36.6* PLT -- 187 223 LACT 2.0 -- -- INR -- 1.08 -- Imaging X-rays of the left ankle were obtained, reviewed, and interpreted. Images show bimalleolar ankle fracture with lateral dislocation of the talus relative to the tibial plafond. Soft tissue gas in the anteromedial leg. Assessment and Plan Tori Cantor is a 44 year old male with extensive fracture blistering and cellulitis in setting of trimalleolar ankle fracture/dislocation status-post multiple closed-reductions. - Admit to Medicine - Pain control. - DVT PPx: SCDs. Hold chemical prophylaxis for surgery tomorrow. - Antibiotics: Per primary team, recommend broad-spectrum coverage. - Weight-bearing Status: NWB LLE. - Short leg splint placed and molded in ED. - Maintain splint on LLE. - Diet: Diabetic. NPO/IVF at midnight. - OR 06/10/19 for application of external fixator, irrigation and debridement, and application of wound vac to left ankle. - Consent obtained and placed in chart. - Discussed with Dr. Vogel who agrees with the above recommendations. Previous Version Julianna Ballard, RN, RN 06/09/2019 4:54 PM Signed Pt at CT/xray Luis Mckinney RN, RN 06/09/2019 7:24 PM Signed Wound cultures sent Luis Mckinney RN, RN 06/09/2019 7:28 PM Signed Wound culture taken by doctor at L lower extremity wound and sent to the lab. Luis Mckinney RN, RN 06/09/2019 7:51 PM Signed Repeat lactic acid collected (blue on ice) and sent to the lab. Destinee Saba DO Ramon 06/10/2019 6:20 AM Addend DEPARTMENT OF HOSPITAL MEDICINE HISTORY AND PHYSICAL EXAM SERVICE DATE: 06/09/2019 SERVICE TIME: 7:45 PM Primary Care Physician: Elizabeth Nelson DO NIGHT AND WEEKEND COVERAGE: From 7am - 7pm, please call Sound After 7pm, please call cross cover pager #[phone] Subjective CHIEF COMPLAINT: Ankle swelling and pain HPI: This is a 44 year old male who presents with the above chief complaint. 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 In early May he was admitted with an ankle fracture and was placed in a splint and discharge to SNF. He presented back to the ER yesterday for an open wound to his soft tissues. Apparently he removed his splint. Fracture blisters were noted on the ER documentation. He had a reduction at that time. Admission was recommended however he elected to leave AMA. Presented back to the ER today with worsening pain and drainage. He apparently has been non complaint with weight bearing restrictions. Tonight he was seen by ortho and plans for OR tomorrow. Denies any fever, chills, chest pain or abdominal pain. 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 - Pancreatitis 08/2014 - Tobacco abuse 05/27/2019 - Trimalleolar fracture of left ankle PAST SURGICAL HISTORY Procedure Laterality Date - NONE FAMILY HISTORY Problem Relation Age of Onset - Hypertension Mother - Diabetes Mother - Stroke Mother - Heart Mother CHF - Cataract Mother - Hypertension Father - COPD Father - Emphysema Father Social History Tobacco Use - Smoking status: Current Every Day Smoker Packs/day: 1.00 Types: Cigarettes - Smokeless tobacco: Never Used Substance Use Topics - Alcohol use: Yes Comment: socially - Drug use: Yes Types: Cocaine, Amphetamines Comment: hist of cocaine and marajuana use, fentanyl HOME MEDICATIONS: Prior to Admission Medications Prescriptions Last Dose Informant Patient Reported? Taking? DULoxetine (CYMBALTA) 30 mg capsule Patient No Yes Sig: Take 1 capsule by mouth once daily. Patient taking differently: Take 60 mg by mouth twice daily. Insulin Dudley, Disposable, (BD ULTRAFINE III MINI PEN) 31 gauge x 3/16 ndle No Yes Sig: USE WITH INSULIN PENS 4TIMES DAILY Lancets lancets No Yes Sig: Use as instructed acetaminophen (TYLENOL) 325 mg tablet No Yes Sig: Take 2 tablets by mouth every 6 hours as needed. blood sugar diagnostic (WatchDoxUCH ULTRA TEST) test strip No Yes Sig: CHECK BLOOD SUGARS 6 TIMES DAILY doxycycline monohydrate (AVIDOXY) 100 mg tablet No No Sig: Take 1 tablet by mouth twice daily for 14 days. insulin detemir (LEVEMIR U-100 INSULIN SUBCUTANEOUS) Yes Yes Sig: Inject 20 Units subcutaneously twice daily. insulin lispro (HUMALOG KWIKPEN INSULIN) 100 unit/mL inpn No No Sig: Inject 14 Units subcutaneously three times daily before meals. Patient taking differently: Inject 14 Units subcutaneously three times daily before meals. If glucose is 300 or higher lisinopril (ZESTRIL, PRINIVIL) 10 mg tablet OTHER No Yes Sig: Take 1 tablet by mouth once daily for [address] (PROTONIX) 40 mg tablet OTHER Yes Yes Sig: Take 40 mg by mouth once daily. pregabalin (LYRICA) 150 mg capsule OTHER Yes No Sig: Take 150 mg by mouth once daily. Facility-Administered Medications: None ALLERGIES No Known Allergies REVIEW OF SYSTEM: All ROS are negative except those noted in HPI Objective PHYSICAL EXAM: BP 115/75 Pulse 80 Temp (Src) 98.2 (Oral) Resp 16 Ht 5' 9 (1.75m) Wt 195 lb (88.5kg) SpO2 98% BMI 28.78 kg/(m2). O2 Therapy: Room Air GENERAL: Alert, no distress, cooperative, NAD SKIN: did not take down dressing HEAD/SINUSES: Normocephalic, atraumatic, oral mucosa moist EYES: PERRLA, EOMI NECK: No jugulovenous distention, Supple, no adenopathy LUNGS: Lungs clear to auscultation, no wheezes, ronchi, or rales CARDIAC: RRR, Normal S1 and S2; no rubs, murmurs, or gallops ABDOMEN: Abdomen soft, non-tender, BS normal, No masses or organomegaly EXTREMITIES: left lower extremity splint in place did not take down. Per ortho fracture blisters and mascerated skin noted NEURO: Sensation grossly intact, Cranial nerves II-XII intact, moves all 4 extremities, speech was clear and coherent - no chronic chen DATA: Diagnostic tests reviewed for today's visit: Most recent labs and imaging results. CBC: Recent Labs 06/09/19 1548 WBC 27.50* RBC 3.99* HB 11.4* HCT 34.9* PLT 187 MCV 87.5 MCH 28.6 MPV 12.1* RDW 12.7 Coags: Recent Labs 06/09/19 1548 INR 1.08 APTT 27.6 BMP: Recent Labs 06/09/19 1548 NA 127* K 3.8 CHLOR 96* CO2 26 BUN 35* CREAT 1.03 GLUC 241* CMP: Recent Labs 06/09/19 1548 NA 127* K 3.8 CHLOR 96* CO2 26 BUN 35* CREAT 1.03 GLUC 241* TPROT 6.0* CA 9.4 TBILI 2.3* ALKPHOS 386* ALT 42 AST 44* ANION 9 Cardiac Enzymes: No results for input(s): CK, MB, CKMB, TROPT in the last 24 hours. Liver Function, Amylase, Lipase: Recent Labs 06/09/19 1548 TPROT 6.0* ALB 2.0* ALT 42 AST 44* ALKPHOS 386* TBILI 2.3* MG/PHOS: No results for input(s): MG, P in the last 24 hours. Renal Panel: Recent Labs 06/09/19 1548 CREAT 1.03 BUN 35* GLUC 241* CA 9.4 CHLOR 96* K 3.8 CO2 26 NA 127* Heme: No results for input(s): RETICP, ABSRETIC, LD, VIKRAM, FE, TIBC, TRANSFERSAT in the last 24 hours. Assessment/Plan 1. Sepsis - due to #2. Start vanc and zosyn for now. Cultures from yesterday are already positive. Repeat cultures. ID consult 2. LEFT lower extremity soft tissue infection/cellulitis - culture taken in ER. Vanc IV, zosyn for now. IV dilaudid for pain 3. Trimal ankle fracture - plan for OR per ortho 4. IVDA - check drug screen 5. IDDM - accu checks ac and hs. Decrease home lantus for tonight as he will be NPO. SSI every 6 hours while NPO 6. Medical non complaince 7. Hyponatremia - IV fluids 8. Elevated LFTs - re check in AM VTE Prophylaxis: Lovenox 40mg Sub Q Daily starting tomorrow night Lines, Drains, and Airways Line Peripheral 06/09/19 1200 Right Hand 22 Gauge less than 1 day Peripheral 06/09/19 1545 Left Wrist 20 Gauge less than 1 day Disposition: SNF Functional Status Prior to Admit: Ambulatory with WB restrictions Plan of care discussed with: Patient SIGNATURE: Destinee Navarro DO PATIENT NAME: Tori Cantor DATE: June 09, 2019 TIME: 7:45 PM PAGER/CONTACT #: [phone] Previous Version José Miguel Toribio Pharmacist 06/09/2019 9:04 PM Signed PHARMACY VANCOMYCIN DOSING NOTE Patient Name: Tori Cantor Admission Date: 06/09/2019 Date of Consult: 06/09/2019 Time of Consult: 9:01 PM Indication: Skin/Soft tissue infection Goal Range: 10-20 mcg/mL RECOMMENDATIONS/PLAN: Pharmacy consulted for vancomycin dosing for Tori Cantor, a 44 year old, male who is being treated with vancomycin for Skin/Soft tissue infection 1. Patient is currently ordered Vancomycin 1.25 g IV q12h. Today is day #1 of therapy. 2. No vancomycin level has been drawn for this dosing regimen. 3. The present dose of vancomycin is the recommended dosage for this patient at this time. Continue therapy as prescribed. 4. The next vancomycin level will be ordered for 06/11/19 @ 0400 prior to 4th dose, changing renal function unless clinically indicated sooner. (Pharmacy will order) We will follow patient renal function, vancomycin levels and doses with you during the course of therapy. Additional recommendations will appear in follow up notes. If you have any questions, please contact Pharmacy at [phone]. Age: [age] year old Allergies: ALLERGIES No Known Allergies Last 3 Encounter Wt Readings: Date: Wt: 06/09/2019 91 kg (200 lb 9.9 oz) 06/08/2019 88 kg (194 lb) 06/02/2019 79.4 kg (175 lb) Last 1 Encounter Ht Readings: Date: Ht: 06/09/2019 175.3 cm (5' 9) CrCl: 99.7 mL/min Temp (24hrs), Av.8 ?C (98.3 ?F), Min:36.8 ?C (98.2 ?F), Max:36.9 ?C (98.4 ?F) - Current Temp: 36.9 ?C (98.4 ?F) Labs BUN (mg/dL) Date Value 06/09/2019 35 (H) 06/08/2019 31 (H) 05/28/2019 19 (H) Creatinine (mg/dL) Date Value 06/09/2019 1.03 06/08/2019 0.78 05/28/2019 0.61 (L) WBC (thou/cmm) Date Value 06/09/2019 27.50 (HH) 06/08/2019 23.44 (H) 05/28/2019 6.18 Vancomycin Levels: No results found for: GARLAND Toribio, Pharmacist Valdemar Song MD 06/10/2019 6:14 AM Signed Orthopaedic Surgery Inpatient Progress Note Assessment and Plan Tori Cantor is a 44 year old male extensive fracture blistering and cellulitis in setting of trimalleolar ankle fracture/dislocation status-post multiple closed-reductions. - Management per primary team. - Pain control. - DVT PPx: SCDs. Hold chemical prophylaxis for surgery tomorrow. - Antibiotics: Vancomycin and Zosyn. - Antibiotics: Per primary team, recommend broad-spectrum coverage. - Weight-bearing Status: NWB LLE. - Short leg splint placed and molded in ED. - Maintain splint on LLE. - Diet: Diabetic. NPO/IVF at midnight. - OR today for application of external fixator, irrigation and debridement, and application of wound vac to left ankle. - Plan of care discussed with patient who is in agreement. Subjective No acute events overnight. Pain well controlled. No fevers, chills, chest pain, or shortness of breath. No new complaints. Physical Examination Vitals BP 125/78 Pulse 116 Temp 37.2 ?C (99 ?F) (Oral) Resp 18 Ht 175.3 cm (5' 9) Wt 91 kg (200 lb 9.9 oz) SpO2 93% BMI 29.63 kg/m? General Alert and oriented. No acute distress. Cooperative with interview. Left Lower Extremity Short leg splint in place. Splint clean, dry, and intact. Alignment normal. No gross deformities. Decreased sensation in Damico/Sa/DP/SP/T distributions. Motor examination limited by splint. Wiggles all toes. BCR all digits. Labs Recent Labs 06/10/19 0230 06/09/19 1935 06/09/19 1556 06/09/19 1548 NA 129* -- -- 127* K 3.9 -- -- 3.8 CHLOR 97* -- -- 96* CO2 25 -- -- 26 BUN 36* -- -- 35* CREAT 0.91 -- -- 1.03 GLUC 270* -- -- 241* ANION 11 -- -- 9 CA 8.9 -- -- 9.4 ALB 1.8* -- -- 2.0* AST 33 -- -- 44* ALT 36 -- -- 42 ALKPHOS 327* -- -- 386* TBILI 2.2* -- -- 2.3* WBC 26.84* -- -- 27.50* HB 10.3* -- -- 11.4* HCT 30.1* -- -- 34.9* PLT 206 -- -- 187 LACT -- 1.4 2.0 -- INR 1.09 -- -- 1.08 Imaging No new orthopaedic imaging. Valdemar Song MD Orthopaedic Surgery, PGY-3 Pager: [phone] Ortho Pager: [phone] Nelly James, RN, RN 06/10/2019 8:02 AM Signed Nursing Progress Note Patient Name: Tori Cantor Patient Location: [id number] 1 Daily Note: Pt's labwork WBC count resulted in critical high at 26.84. Dr. Lyn notified. No orders received. Sound is aware pt has cellulitis and expected elevated WBC. 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 Yes Is This a Planned Readmission? No: Infection Followed Up with Appointment Prior to Admission: No appointment scheduled Where Did the Patient Come From? [facility] Intervention Taken to Avoid Future Readmission? IANDD, Wound Vac, rehab, follow up with Advance Directive: Current Advance Directive: None Lens Blocker Attempted to Assist with AD Completion: Yes Action: Education Provided(Not willing) Health Literacy: 1. How often do you need to have someone help you when you read instructions, pamphlets, or other written material from your doctor or pharmacy? Rarely - 2 2. How confident are you filling out medical forms by yourself? Quite a bit - 2 If Patient scores > 3 on either question, the following interventions were put into place: Use concrete and specific phrases, avoid medical jargon FUNCTIONAL AND COGNITIVE/BEHAVIORAL PRIOR TO ADMISSION: Baseline Mental Status: Alert AND Oriented, Person, Place , Time and Situation Functional Status: Needs Assistance Does Patient Currently Receive Any Community Services or Home Care? None Equipment Prior to Admission: Cane - Straight Walker Has the Patient Been in a Halfway Facility in the Past 30 days? Yes. Where and Dates: [facility] SOCIAL: Living Arrangement: Home, Home with parent/guardian Lives With: Father Financial Resources: Disabled Primary Contact: Extended Emergency Contact Information Primary Emergency Contact: DEVAUGHN DARWIN [place] Relation: Father Secondary Emergency Contact: Ingris Flowers Relation: Relative Supportive: Yes Other Important Patient Contacts: None Caregiver Assessment: Caregiver is ready, willing and able to meet the patient's needs as recommended by the inter-professional team? TBD Patient's transition needs and plan for meeting these needs: PT/OT, accepting facility, precert, transportation Does the patient have an acute stroke diagnosis, or has the patient had a stroke during this admission? No Medication Adherence: I am convinced of the importance of my prescription medication: Agree completely - 0 I worry that my prescription medication will do more harm than good to me Disagree completely - 0 I feel financially burdened by my [id number] expenses for my prescription medication: Disagree completely - 0 Patient is categorized as low risk < 2 Are you interested in bedside delivery of your medications? No Is the Patient Psychosocially Complex? No ASSESSMENT AND PLAN: Medical Needs: 2 or more chronic diseases Psychosocial Needs: None FREEDOM OF CHOICE EXPLAINED: Yes SNF Financial Disclosure Provided Preference: Return to [place] POTENTIAL TRANSITION PLANS Halfway Facility/Intermediate Care Facility Patient came from [facility]. Had been there approximately 10 days. To OR today for IANDD, application of Ext. Fixator and wound vac. +PCP, DME and Rx coverage. PT/OT to see following surgery. Anticipate plan to be return to [facility] when medically ready. SIGNATURE: Charlee Lee RN PATIENT NAME: Tori Cantor DATE: June 10, 2019 TIME: 9:20 AM PAGER/CONTACT #: [phone] Marilee Enriquez RN, RN 06/10/2019 10:[address] Fernandez notified of pts glucometer [phone]. No new orders received. Jayy Vogel MD 06/10/2019 8:04 PM Signed ORTHOPAEDIC OPERATIVE REPORT PATIENT NAME: Tori Cantor Surgery/Procedure Date: 06/10/2019 Incision/Procedure Start Time: 11:33 AM Incision Close/Procedure End Time: 12:47 PM Surgeon(s) and Innovation Manager(s): Surgeon(s) and Role: * Jayy Vogel - Primary * Velvet Phelps - Resident - Assisting No Additional Staff PRE-OPERATIVE DIAGNOSIS: Left trimalleolar ankle fracture-dislocation with left leg cellulitis and infected fracture blisters POST-OPERATIVE DIAGNOSIS: Left trimalleolar ankle fracture-dislocation with left leg cellulitis and infected fracture blisters SURGICAL PROCEDURE(S): 1) Spanning external fixator placement left ankle 2) Irrigation and debridement left leg superficial abscess/fracture blisters (25 cm x 10 cm x 0.5 cm) 3) Application wound vac left leg (25 cm x 10 cm x 0.5 cm - 4 pieces black foam) Anesthesia: General Implantable Devices: Synthes external fixator system Complications: None Specimens: Intraoperative culture swab x 2 left leg blisters (aerobic/anaerobic) Estimated Blood Loss: < 50 mls OPERATIVE INDICATIONS: This is a 44 year old male who sustained a left trimalleolar fracture-dislocation on or around 05/27/2019. He presented to the emergency department after a period of IV drug abuse with a large medial malleolar ulcer in addition to the fracture-dislocation. He underwent closed management with reduction, wound care and splinting. He was evaluated in the office 06/02/2019 with continued ulceration of the malleolus and was scheduled for definitive surgical fixation 06/10/2019 to allow continued soft tissue swelling resolution. The patient ambulated on the extremity at his facility and eventually removed the splint. The ankle re-dislocated with extensive fracture blister eruption and apparent superinfection. He underwent another reduction and splint application, and left the emergency department AMA rather than undergo admission and antibiotic administration prior to surgery. He then returned to the ED with progressive evidence of sepsis. Risks and benefits of temporary stabilization with external fixation and wound debridement were reviewed with the patient in detail. Anticipated complications have been reviewed with him multiple times, now exacerbated by noncompliance in addition to underlying peripheral neuropathy, poorly controlled diabetes, IVDA, and history of charcot degeneration of the contralateral limb. The extremity is very high risk for amputation. OPERATIVE PROCEDURE: The patient was brought to the operating room on the hospital bed. He was intubated per Anesthesia. The patient was then transferred to the operating table. The left lower extremity was pre-washed with chlorhexidine. It was padded prepped and sterilely draped for the procedure. The [facility] [place] [facility] timeout protocol was performed. Measurement of the extension of infected fracture blisters was taken at 25 cm long by 10 cm wide over the anterior left leg at the greatest dimension. The region was debrided with a curet down to dermis. The medial malleolar ulcer was debrided with a curet, and the eschar maintained to prevent exposing the bone without coverage. Two culture swabs were obtained within the subcutaneous soft tissues at the deepest portions of the wound. The region was irrigated thoroughly with saline. Two percutaneous incisions were made through skin with scalpel proximal to the extent of cellulitis over the anterior tibia distal to the knee joint. Two Synthes half pins were placed and confirmed in position with imaging. A medial calcaneal percutaneous incision was made and a Synthes cross pin was placed through the calcaneus. A spanning external fixator construct was made, and the ankle relatively reduced under imaging. The construct was tightened into position. Care was taken not to cover the anteromedial blisters in order to place a wound vac. A kickstand was created with bars to prevent heel pressure. Final images in multiple planes were saved. A wound vac was applied over the blistered bed, measuring 25 cm x 10 cm x 0.5 cm (four partial foam pieces utilized. A good seal was noted. Half pin and cross pin dressings were placed, followed by an morgan bandage. All draping was removed. The patient was extubated per Anesthesia. He was returned to the hospital bed and taken to the recovery room. POST-OPERATIVE PLAN: -Pain control (previously through pain management secondary to IVDA history). -Weight-bearing status: NWB LLE. STRICT RECOMMENDATION -Elevate operative extremity. Keep bolster under left knee. -Wound vac change on Thursday to homegoing vac (ActiVac already delivered). Supplied by [employer]. 25 cm x 10 cm x 0.5 cm at greatest diameter. -Management per primary -Antibiotics per primary; cultures pending. -Follow up HgbA1c. -DVT Prophylaxis: SCD to RLE, per primary for chemical prophylaxis. Okay from ortho standpoint -Discharge planning. Okay for discharge from ortho standpoint when medically stable. No plans for surgical intervention by orthopedics this admission, unless necessitated by progression of infection secondary to numerous risk factors already outlined. HIGH RISK FOR AMPUTATION -No family present to update regarding post-surgical state. -Dr. Uriarte covering next week, updated him regarding patient course thus far. I/primary surgeon/proceduralist performed the procedure with assistance. SIGNATURE: Jayy Vogel MD DATE: June 10, 2019 TIME: 7:43 PM Jayy Vogel MD 06/10/2019 8:01 PM Addendum BRIEF OPERATIVE / PROCEDURE NOTE LOG ID: [id number] SURGERY/PROCEDURE DATE: 06/10/2019 INCISION/PROCEDURE START TIME: 11:33 AM INCISION CLOSE/PROCEDURE END TIME: 12:47 PM SURGEON(S)/PROCEDURALIST( S) AND SOFTWARE SUPPORT TECHNICIAN(S): Surgeon(s) and Role: * Jayy Vogel - Primary * Velvet Phelps - Resident - Assisting No Additional Staff SURGERY/PROCEDURE(S): Debridement of left leg and ankle wounds Application of left ankle spanning external fixation (multiplanar) Application of wound vac ANESTHESIA: General FINDINGS: See op report ESTIMATED BLOOD LOSS: 50 mls SPECIMENS: Culture of wound x 2 COMPLICATIONS: None PRE-OP/PRE-PROCEDURE DIAGNOSIS: LEFT ankle fracture/dislocation with cellulitis POST-OP/POST-PROCEDURE DIAGNOSIS: LEFT ankle fracture/dislocation with cellulitis Post-op Plan: -Pain control -Weight-bearing status: NWB LLE -Elevate operative extremity. Keep bolster under left knee -Wound vac change on Thursday to going vac. Supplied by [employer]. 25 cm x 10 cm x 0.5 cm at greatest diameter -Management per primary -Antibiotics per primary -Follow up HgbA1c -DVT Prophylaxis: SCD to RLE, per primary for chemical prophylaxis. Okay from ortho standpoint -Discharge planning. Okay for discharge from ortho standpoint when medically stable. No plans for surgical intervention by orthopedics this admission SIGNATURE: Velvet Phelps MD PATIENT NAME: Tori Cantor DATE: June 10, 2019 TIME: 1:12 PM PAGER/CONTACT #: Previous Version Donnell Garcia MD 06/10/2019 10:17 PM Addendum CONSULT: INFECTIOUS DISEASE SERVICE SERVICE DATE: 06/10/2019 SERVICE TIME: 1:46 PM REASON FOR CONSULT: Sepsis REQUESTING PHYSICIAN: Ramon PRIMARY CARE PHYSICIAN: DO Jose Grant Mr. Cantor is a 44 year old PMHX signficant for DM Type I, HTN, IVDU, Pancreatitis, Tobacco abuse, who presented to the ED with c/o left LE swelling, wounds. He was seen in the ED 05/31/19, diagnosed with left ankle tri malleolar fracture/ dislocation. He was splinted in ED, discharged to SNF pending planned ORIF. He returned to the ED 06/08 dt above complaints, ankle was reduced again, lab work significant for leukocytosis. He was recommended admission but left AMA. States last IVDA 2 weeks ago, injection into FA. Upon return to the ED 06/09 he was afebrile, HR 92, BP 102/69, RA. WBC 27.5, LA 2.0, LFT's elevated. Left Ankle/ Tib Fib XR significant for displaced medial and lateral malleoli fractures with lateral subluxation of the ankle, soft tissue irregularity along the anteromedial aspect of the lower leg corresponding with tissue wound, soft tissue gas present, diffuse soft tissue swelling. Blood Cx sent 06/08 growing Staph Aureus in 4/4 bottles, Bacillus Species 1/4 bottles. He was started on Vanc/ Zosyn/ Clindamycin, admitted to surgical floor. Today he went to OR for Left Leg and Ankle debridement, external fixator, and wound vac. Intra operative abscess cultures obtained. ID consulted for further antimicrobial management. TMAX since admission 38.3. 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 - Pancreatitis 08/2014 - Tobacco abuse 05/27/2019 - Trimalleolar fracture of left ankle PAST SURGICAL HISTORY Procedure Laterality Date - NONE FAMILY HISTORY Problem Relation Age of Onset - Hypertension Mother - Diabetes Mother - Stroke Mother - Heart Mother CHF - Cataract Mother - Hypertension Father - COPD Father - Emphysema Father Social History Tobacco Use - Smoking status: Current Every Day Smoker Packs/day: 1.00 Types: Cigarettes - Smokeless tobacco: Never Used Substance Use Topics - Alcohol use: Yes Comment: socially - Drug use: Yes Types: Cocaine, Amphetamines Comment: hist of cocaine and marajuana use, fentanyl insulin detemir (LEVEMIR U-100 INSULIN SUBCUTANEOUS), Inject 20 Units subcutaneously twice daily., Disp: , Rfl: acetaminophen (TYLENOL) 325 mg tablet, Take 2 tablets by mouth every 6 hours as needed., Disp: , Rfl: insulin lispro (HUMALOG KWIKPEN INSULIN) 100 unit/mL inpn, Inject 14 Units subcutaneously three times daily before meals. (Patient taking differently: Inject 14 Units subcutaneously three times daily before meals. If glucose is 300 or higher ), Disp: , Rfl: lisinopril (ZESTRIL, PRINIVIL) 10 mg tablet, Take 1 tablet by mouth once daily for 15 days., Disp: 15 tablet, Rfl: 0, 05/26/[address] (PROTONIX) 40 mg tablet, Take 40 mg by mouth once daily. , Disp: , Rfl: , 05/26/2019 Lancets lancets, Use as instructed, Disp: 100 Each, Rfl: 11, Taking Insulin Dudley, Disposable, (BD ULTRAFINE III MINI PEN) 31 gauge x 3/16 ndle, USE WITH INSULIN PENS 4TIMES DAILY, Disp: 400 Each, Rfl: 3, Taking blood sugar diagnostic (WatchDoxUCH ULTRA TEST) test strip, CHECK BLOOD SUGARS 6 TIMES DAILY, Disp: 200 Strip, Rfl: 3, Taking DULoxetine (CYMBALTA) 30 mg capsule, Take 1 capsule by mouth once daily. (Patient taking differently: Take 60 mg by mouth twice daily. ), Disp: , Rfl: 0, 05/25/2019 pregabalin (LYRICA) 150 mg capsule, Take 150 mg by mouth once daily. , Disp: , Rfl: , Taking doxycycline monohydrate (AVIDOXY) 100 mg tablet, Take 1 tablet by mouth twice daily for 14 days., Disp: 28 tablet, Rfl: 0 Current Facility-Administered Medications Medication Dose Route Frequency - [MAR Hold due to Transfer] vancomycin dosing and monitoring per pharmacy OTHER As Directed - [MAR Hold due to Transfer] vancomycin iv piggyback 1.25 g in D5W 250 mL (VANCOCIN) 1.25 g INTRAVENOUS q 12 HR - [MAR Hold due to Transfer] piperacillin-tazobactam iv piggyback 3.375 g in dextrose (iso-osmotic) 50 mL (ZOSYN) 3.375 g INTRAVENOUS q 6 H - [MAR Hold due to Transfer] HYDROmorphone HCl 0.5 mg injection (DILAUDID) 0.5 mg INTRAVENOUS q 4 H PRN - [MAR Hold due to Transfer] pregabalin 150 mg cap(s) (LYRICA) 150 mg ORAL DAILY - [MAR Hold due to Transfer] lisinopril 10 mg tab(s) (ZESTRIL, PRINIVIL) 10 mg ORAL DAILY - [MAR Hold due to Transfer] pantoprazole DR 40 mg tab(s) (PROTONIX) 40 mg ORAL DAILY - [MAR Hold due to Transfer] DULoxetine 60 mg cap(s) (CYMBALTA) 60 mg ORAL BID - [MAR Hold due to Transfer] insulin glargine 10 Units pen (long acting) (LANTUS SOLOSTAR, BASAGLAR KWIKPEN) 10 Units SUBCUTANEOUS BID - [MAR Hold due to Transfer] enoxaparin 40 mg injection (LOVENOX) 40 mg SUBCUTANEOUS DAILY - [MAR Hold due to Transfer] NaCl 0.9% 3-5 mL 3-5 mL INTRAVENOUS q 12 H - [MAR Hold due to Transfer] NaCl 0.9% iv infusion 100 mL/hr INTRAVENOUS CONTINUOUS - [SEP Hold due to Transfer] ondansetron 4 mg tab(s) (ZOFRAN) 4 mg ORAL q 6 H PRN Or - [MAR Hold due to Transfer] ondansetron (PF) 4 mg injection (ZOFRAN) 4 mg INTRAVENOUS q 6 H PRN - [MAR Hold due to Transfer] docusate sodium 100 mg cap(s) (COLACE) 100 mg ORAL BID PRN - [MAR Hold due to Transfer] bisacodyl 10 mg suppository (DULCOLAX) 10 mg RECTAL DAILY PRN - [MAR Hold due to Transfer] dextrose 40 % 15 g 15 g ORAL PRN Or - [MAR Hold due to Transfer] glucagon 1 mg injection (GLUCAGEN) 1 mg INTRAMUSCULAR PRN Or - [MAR Hold due to Transfer] dextrose 50 % 12.5 g injection 12.5 g INTRAVENOUS PRN - [MAR Hold due to Transfer] insulin lispro pen (rapid acting) (HumaLOG KWIKPEN) SUBCUTANEOUS q 6 H - lactated ringers infusion 125 mL/hr INTRAVENOUS CONTINUOUS - fentaNYL 50 mcg/mL 50 mcg injection (SUBLIMAZE) 50 mcg INTRAVENOUS q 5 MIN PRN - HYDROmorphone HCl 0.5 mg injection (DILAUDID) 0.5 mg INTRAVENOUS q 10 MIN PRN - ondansetron (PF) 4 mg injection (ZOFRAN) 4 mg INTRAVENOUS PRN - meperidine (PF) 12.5 mg injection (DEMEROL) 12.5 mg INTRAVENOUS q 10 MIN PRN Allergies As of Date: 06/09/2019 (No Known Allergies) Fully Assessed 06/09/2019 COMPLETE REVIEW OF SYSTEMS: 10 point ROS complete, negative unless otherwise stated in HPI Objective PHYSICAL EXAM: Temp (24hrs), Av.2 ?C (98.9 ?F), Min:36.4 ?C (97.5 ?F), Max:38.3 ?C (100.9 ?F) GEN: Alert, pleasant, NAD HEENT: PERRL, moist oral mucosa, neck supple PULM: CTA bilateral, no rhonchi/wheezes. CV: RRR GI: soft, non distended, non tender, BSx4 : no chen, no CVAT EXT: LLE Surgical dressing with external fixation in place - no proximal erythema SKIN: no rash NEURO: no focal deficits, Alert and oriented x3 LINES: PIV sites clean Body mass index is 29.63 kg/m?. DATA: Diagnostic tests reviewed for today's visit: Recent Labs 06/10/19 0230 06/09/19 1935 06/09/19 1556 06/09/19 1548 06/08/192024 WBC 26.84* -- -- 27.50* 23.44* HB 10.3* -- -- 11.4* 12.2* PLT 206 -- -- 187 223 INR 1.09 -- -- 1.08 -- NA 129* -- -- 127* 128* K 3.9 -- -- 3.8 3.7 CO2 25 -- -- 26 30 BUN 36* -- -- 35* 31* CREAT 0.91 -- -- 1.03 0.78 AST 33 -- -- 44* -- ALT 36 -- -- 42 -- TBILI 2.2* -- -- 2.3* -- ALKPHOS 327* -- -- 386* -- WSR -- -- -- -- 84* CRP -- -- -- -- 23.80* LACT -- 1.4 2.0 -- -- MICROBIOLOGY: 06/08 Blood Cx 10/21 + Staph Aureus 07/23 + Bacilli IMAGES: reviewed Impression/Recommendation s 1. Staph Aureus Bacteremia 2/2 # 3, r/o IE 2. Left Leg Abscess s/p I AND D 06/10 3. Left Ankle Fracture/ Dislocation s/p ORIF 06/10 4. Leukocytosis 5. Elevated CRP 6. Fever 7. DM Type I 8. Elevated Alk Phos 9. H/O IVDA RECOMMENDATIONS: Continue Vancomycin DC Zosyn/ Clindamycin Repeat Blood Cx x 2 Ordered TTE F/U ID and S of Staph Aureus F/U OR Cultures Monitor WBC/ Temps SIGNATURE: Cielo Ramirez APRN.CNP PATIENT NAME: Tori Cantor DATE: June 10, 2019 TIME: 1:46 PM PAGER: [phone] Seen and examined independently. Agree fully w above notes as documented by the RETAINING ROOM CUTTER. Donnell Garcia MD 06/10/2019 5:01 PM Previous Version Blade Fernandez MD 06/10/2019 3:22 PM Signed ANESTHESIOLOGY DAY OF SURGERY NOTE SERVICE DATE: 06/10/2019 SERVICE TIME: 3:22 PM : 1975 Procedure(s) (LRB): ORIF ANKLE TRIMALLEOLAR, WITHOUT FIXATION POSTERIOR LIP (Left) APPLICATION EXTERNAL FIXATOR ANKLE (Left) Surgeon(s): Jayy Phelps Estimated body mass index is 29.63 kg/m? as calculated from the following: Height as of this encounter: 175.3 cm (5' 9). Weight as of this encounter: 91 kg (200 lb 9.9 oz). Most recent hematocrit and potassium results: Hematocrit 30.1 06/10/2019 Potassium 3.9 06/10/2019 ANES DOS/PREOP NOTE: Vitals: 06/10/19 1330 06/10/19 1345 06/10/19 1400 06/10/19 1420 BP: 125/82 130/84 133/85 Pulse: 98 97 97 96 Resp: 23 20 20 20 Temp: 36.9 ?C (98.4 ?F) 37.5 ?C (99.5 ?F) TempSrc: Oral SpO2: 94% 97% 96% 96% Weight: Height: ACTIVE PROBLEM LIST Uncontrolled type 1 diabetes mellitus mild nonproliferative retinopathy without macular edema (HCC) Hypertension Gerd (Gastroesophageal Reflux Disease) Microalbuminuria History of Diabetic Gastroparesis Diabetic Polyneuropathy Associated With Type 1 Diabetes Mellitus (Hcc) Depression With Anxiety Charcot's Joint of Right Foot Hyperlipidemia Hep C W/O Coma, Chronic (Hcc) History of Drug Abuse in Remission (Hcc) Ivdu (Intravenous Drug User) Tobacco Abuse Left Ankle Joint Deformity Hyperglycemia Nicotine use disorder, F17.2 Closed Fracture of Left Ankle Sepsis (Hcc) PAST MEDICAL HISTORY Diagnosis Date - Diabetes ([facility]) - DKA (diabetic ketoacidosis) ([facility]) 08/2014 - Hyperglycemia 05/27/2019 - Hypertension - IVDU (intravenous drug user) 05/27/2019 - Lactose intolerance 07/30/2016 - Left ankle joint deformity 05/27/2019 - Pancreatitis 08/2014 - Tobacco abuse 05/27/2019 - Trimalleolar fracture of left ankle PAST SURGICAL HISTORY Procedure Laterality Date - NONE FAMILY HISTORY Problem Relation Age of Onset - Hypertension Mother - Diabetes Mother - Stroke Mother - Heart Mother CHF - Cataract Mother - Hypertension Father - COPD Father - Emphysema Father Social History: Social History Tobacco Use - Smoking status: Current Every Day Smoker Packs/day: 1.00 Types: Cigarettes - Smokeless tobacco: Never Used Substance Use Topics - Alcohol use: Yes Comment: socially - Drug use: Yes Types: Cocaine, Amphetamines Comment: hist of cocaine and marajuana use, fentanyl No current facility-administered medications on file prior to encounter. Current Outpatient Medications on File Prior to Encounter Medication Sig - insulin detemir (LEVEMIR U-100 INSULIN SUBCUTANEOUS) Inject 20 Units subcutaneously twice daily. - acetaminophen (TYLENOL) 325 mg tablet Take 2 tablets by mouth every 6 hours as needed. - insulin lispro (HUMALOG KWIKPEN INSULIN) 100 unit/mL inpn Inject 14 Units subcutaneously three times daily before meals. (Patient taking differently: Inject 14 Units subcutaneously three times daily before meals. If glucose is 300 or higher ) - lisinopril (ZESTRIL, PRINIVIL) 10 mg tablet Take 1 tablet by mouth once daily for 15 days. - pantoprazole DR (PROTONIX) 40 mg tablet Take 40 mg by mouth once daily. - Lancets lancets Use as instructed - Insulin Dudley, Disposable, (BD ULTRAFINE III MINI PEN) 31 gauge x 3/16 ndle USE WITH INSULIN PENS 4TIMES DAILY - blood sugar diagnostic (play140TOUCH ULTRA TEST) test strip CHECK BLOOD SUGARS 6 TIMES DAILY - DULoxetine (CYMBALTA) 30 mg capsule Take 1 capsule by mouth once daily. (Patient taking differently: Take 60 mg by mouth twice daily. ) - pregabalin (LYRICA) 150 mg capsule Take 150 mg by mouth once daily. - doxycycline monohydrate (AVIDOXY) 100 mg tablet Take 1 tablet by mouth twice daily for 14 days. Current Facility-Administered Medications Medication Dose Route Frequency Provider Last Rate Last Dose - vancomycin dosing and monitoring per pharmacy OTHER As Directed Velvet Briandavidd - vancomycin iv piggyback 1.25 g in D5W 250 mL (VANCOCIN) 1.25 g INTRAVENOUS q 12 HR Velvet Fouad 250 mL/hr at 06/10/19 0503 1.25 g at 06/10/19 0503 - HYDROmorphone HCl 0.5 mg injection (DILAUDID) 0.5 mg INTRAVENOUS q 4 H PRN Velvet Fouad 0.5 mg at 06/10/19 0216 - pregabalin 150 mg cap(s) (LYRICA) 150 mg ORAL DAILY Velvet Torresuad - lisinopril 10 mg tab(s) (ZESTRIL, PRINIVIL) 10 mg ORAL DAILY Velvet Brianuad - pantoprazole DR 40 mg tab(s) (PROTONIX) 40 mg ORAL DAILY Velvet Brianuad - DULoxetine 60 mg cap(s) (CYMBALTA) 60 mg ORAL BID Velvet Brianuad - insulin glargine 10 Units pen (long acting) (LANTUS SOLOSTAR, BASAGLAR KWIKPEN) 10 Units SUBCUTANEOUS BID Velvet Fouad 10 Units at 06/10/19 0924 - enoxaparin 40 mg injection (LOVENOX) 40 mg SUBCUTANEOUS DAILY Velvet Torresuad - NaCl 0.9% 3-5 mL 3-5 mL INTRAVENOUS q 12 H Velvet Torresuad - NaCl 0.9% iv infusion 100 mL/hr INTRAVENOUS CONTINUOUS Velvet Fouad 100 mL/hr at 06/09/19 2213 100 mL/hr at 06/09/19 2213 - ondansetron 4 mg tab(s) (ZOFRAN) 4 mg ORAL q 6 H PRN Velvet Fouad Or - ondansetron (PF) 4 mg injection (ZOFRAN) 4 mg INTRAVENOUS q 6 H PRN Velvet Brianuad - docusate sodium 100 mg cap(s) (COLACE) 100 mg ORAL BID PRN Velvet Torresuad - bisacodyl 10 mg suppository (DULCOLAX) 10 mg RECTAL DAILY PRN Velvet Torresuad - dextrose 40 % 15 g 15 g ORAL PRN Velvet Torresuad Or - glucagon 1 mg injection (GLUCAGEN) 1 mg INTRAMUSCULAR PRN Velvet Tsaid Or - dextrose 50 % 12.5 g injection 12.5 g INTRAVENOUS PRN Velvet Phelps - insulin lispro pen (rapid acting) (HumaLOG KWIKPEN) SUBCUTANEOUS q 6 H Velvet Torresuad 4 Units at 06/10/19 1502 Allergies: ALLERGIES No Known Allergies DOS EXAM: Adequate NPO status: Yes Anesthetic risks, benefits, alternatives, personnel and consent discussed: Yes Patient agrees to proceed: Yes Previous Anesthesia: No history of adverse event. Airway Assessment: MP 2; Neck ROM: Full ROM without neurologic symptoms; Airway Evaluation: No significant abnormalities Symptoms of Sleep Apnea: None Dentition: Teeth intact Additional Physical Exam: Lungs: Patient health status unchanged since recent history and physical. See history and physical for exam findings. Cardiac: Patient health status unchanged since recent history and physical. See history and physical for exam findings. Additional Pertinent Findings: N/A Blood Products: Not anticipated for this procedure. Anesthetic Plan: General, Standard ASA Monitors Pain Management Plan: Parenteral or Oral ASA Class: 3 Other Medical Problems: None Chronic Beta Andrews medication administered within 24 hours: N/A I have interviewed and examined the patient. I have reviewed the medical record and/or the pre-anesthesia evaluation, pertinent labs, and test results. Significant changes in the patient's condition since the History and Physical, not otherwise documented in primary service progress notes: No This contains updated information obtained within 48 hours of Surgery/Procedure. SIGNATURE: Blade Fernandez MD PATIENT NAME: Tori Cantor DATE: June 10, 2019 TIME: 3:22 PM CSN: [id number] Osito Reyes DO 06/10/2019 3:49 PM Signed DEPARTMENT OF HOSPITAL MEDICINE PROGRESS NOTE SERVICE DATE: 06/10/2019 SERVICE TIME: 3:37 PM Hospital Medicine/Primary Attending: Osito Reyes DO NIGHT AND WEEKEND COVERAGE: After 7pm please page [phone] CHIEF COMPLAINT: L foot pain SUBJECTIVE: Pt seen and examined. States he has L foot pain, denies CP, SOB, vomiting, diarrhea, headache, fever/chills or abdominal pain. OBJECTIVE: PHYSICAL EXAM: BP 133/85 Pulse 96 Temp (Src) 99.5 (Oral) Resp 20 Ht 5' 9 (1.75m) Wt 200 lb 9.9 oz (91.0kg) SpO2 96% BMI 29.61 kg/(m2). O2 Therapy: Nasal Cannula, Liters: 3 General - AANDOx3, NAD HEENT- dry oral mucosae CV - RRR S1 S2, No M/R/G RESP - CTA B/L No wheezes, ronchi, rales ABD - soft, NT, ND +BS EXT - L foot wrapped in bandage, foot warm, 3(+) distal pulses NEURO - CN II-XII grossly intact, no focal deficits MEDICATIONS: Current Facility-Administered Medications Medication Dose Route Frequency - vancomycin dosing and monitoring per pharmacy OTHER As Directed - vancomycin iv piggyback 1.25 g in D5W 250 mL (VANCOCIN) 1.25 g INTRAVENOUS q 12 HR - HYDROmorphone HCl 0.5 mg injection (DILAUDID) 0.5 mg INTRAVENOUS q 4 H PRN - pregabalin 150 mg cap(s) (LYRICA) 150 mg ORAL DAILY - lisinopril 10 mg tab(s) (ZESTRIL, PRINIVIL) 10 mg ORAL DAILY - pantoprazole DR 40 mg tab(s) (PROTONIX) 40 mg ORAL DAILY - DULoxetine 60 mg cap(s) (CYMBALTA) 60 mg ORAL BID - insulin glargine 10 Units pen (long acting) (LANTUS SOLOSTAR, BASAGLAR KWIKPEN) 10 Units SUBCUTANEOUS BID - enoxaparin 40 mg injection (LOVENOX) 40 mg SUBCUTANEOUS DAILY - NaCl 0.9% 3-5 mL 3-5 mL INTRAVENOUS q 12 H - NaCl 0.9% iv infusion 100 mL/hr INTRAVENOUS CONTINUOUS - ondansetron 4 mg tab(s) (ZOFRAN) 4 mg ORAL q 6 H PRN Or - ondansetron (PF) 4 mg injection (ZOFRAN) 4 mg INTRAVENOUS q 6 H PRN - docusate sodium 100 mg cap(s) (COLACE) 100 mg ORAL BID PRN - bisacodyl 10 mg suppository (DULCOLAX) 10 mg RECTAL DAILY PRN - dextrose 40 % 15 g 15 g ORAL PRN Or - glucagon 1 mg injection (GLUCAGEN) 1 mg INTRAMUSCULAR PRN Or - dextrose 50 % 12.5 g injection 12.5 g INTRAVENOUS PRN - insulin lispro pen (rapid acting) (HumaLOG KWIKPEN) SUBCUTANEOUS q 6 H DATA: Diagnostic tests reviewed for today's visit: CBC: Recent Labs 06/10/19229 WBC 26.84* RBC 3.50* HB 10.3* HCT 30.1* PLT 206 MCV 86.0 MCH 29.4 MPV 11.8 RDW 13.1 Coags: Recent Labs 06/10/1922906/09/19 1548 INR 1.09 1.08 APTT -- 27.6 BMP: Recent Labs 06/10/19229 NA 129* K 3.9 CHLOR 97* CO2 25 BUN 36* CREAT 0.91 GLUC 270* CMP: Recent Labs 06/10/19229 NA 129* K 3.9 CHLOR 97* CO2 25 BUN 36* CREAT 0.91 GLUC 270* TPROT 5.4* CA 8.9 TBILI 2.2* ALKPHOS 327* ALT 36 AST 33 ANION 11 Cardiac Enzymes: No results for input(s): CK, MB, CKMB, TROPT in the last 24 hours. Liver Function, Amylase, Lipase: Recent Labs 06/10/19229 TPROT 5.4* ALB 1.8* ALT 36 AST 33 ALKPHOS 327* TBILI 2.2* MG/PHOS: No results for input(s): MG, P in the last 24 hours. Renal Panel: Recent Labs 06/10/19229 CREAT 0.91 BUN 36* GLUC 270* CA 8.9 CHLOR 97* K 3.9 CO2 25 NA 129* Heme: No results for input(s): RETICP, ABSRETIC, LD, VIKRAM, FE, TIBC, TRANSFERSAT in the last 24 hours. No results found for: UALBCR Assessment/Plan #Sepsis 2/2 LLE cellulitis and S. Aureus bacteremia -in setting of L trimalleolar ankle fracture -Ortho consult -IANDD and placement of external fixator today planned -continue IV Vanc -ID consult -monitor blood cultures #S. Aureus bacteremia -continue IV Vanc -monitor cultures #Hyponatremia- 2/2 dehydration and poor PO intake -continue IVF, daily BMP. Na improving. #Leukocytosis- 2/2 bacteremia and cellulitis as above. Monitor vitals. Daily CBC. #Hyperbilirubinemia and elevated ALP, elevated LFTs -possible 2/2 sepsis? Will trend liver enzymes, consider GI consult if not improving. Check US RUQ. #IDDM- refused lantus last night. Discussed importance of compliance. Will restart his regular home dosing now that he is eating. SSIC. Carb controlled diet. (On Lispro 14U with meals at home, restart once tolerating good meals.) #HTN-continue home lisinopril if BP stable #Medical noncompliance #IVDA- awaiting urine drug screen VTE Prophylaxis: Lovenox 40mg Sub Q Daily Disposition: SNF likely Plan of care discussed with: Provider, RN, Patient SIGNATURE: Osito Reyes DO PATIENT NAME: Tori Cantor DATE: June 10, 2019 TIME: 3:37 PM PAGER/CONTACT #: Team color pager José Miguel Toribio Pharmacist 06/10/2019 4:00 PM Signed PHARMACY VANCOMYCIN DOSING NOTE Patient Name: Tori Cantor Admission Date: 06/09/2019 Date of Consult: 06/10/2019 Time of Consult: 3:56 PM Indication: Skin/Soft tissue infection Goal Range: 10-20 mcg/mL RECOMMENDATIONS/PLAN: Pharmacy consulted for vancomycin dosing for Tori Cantor, a 44 year old, male who is being treated with vancomycin for Skin/Soft tissue infection 1. Patient is currently ordered Vancomycin 1.25 g IV q12h. Today is day #2 of therapy. 2. No vancomycin level has been drawn for this dosing regimen. 3. The present dose of vancomycin is the recommended dosage for this patient at this time. Continue therapy as prescribed. 4. The next vancomycin level has been ordered for 06/11/19 @ 1600, prior to 5th dose, changing renal function, (Completed) We will follow patient renal function, vancomycin levels and doses with you during the course of therapy. Additional recommendations will appear in follow up notes. If you have any questions, please contact Pharmacy at [phone]. Age: [age] year old Allergies: ALLERGIES No Known Allergies Last 3 Encounter Wt Readings: Date: Wt: 06/09/2019 91 kg (200 lb 9.9 oz) 06/08/2019 88 kg (194 lb) 06/02/2019 79.4 kg (175 lb) Last 1 Encounter Ht Readings: Date: Ht: 06/09/2019 175.3 cm (5' 9) CrCl: 114.3 mL/min Temp (24hrs), Av.2 ?C (99 ?F), Min:36.4 ?C (97.5 ?F), Max:38.3 ?C (100.9 ?F) - Current Temp: 37.5 ?C (99.5 ?F) Labs BUN (mg/dL) Date Value 06/10/2019 36 (H) 06/09/2019 35 (H) 06/08/2019 31 (H) Creatinine (mg/dL) Date Value 06/10/2019 0.91 06/09/2019 1.03 06/08/2019 0.78 WBC (thou/cmm) Date Value 06/10/2019 26.84 (HH) 06/09/2019 27.50 (HH) 06/08/2019 23.44 (H) Vancomycin Levels: No results found for: GARLAND Toribio, Pharmacist Blade Fernandez MD 06/10/2019 4:31 PM Signed POST ANESTHESIA EVALUATION NOTE SERVICE DATE: 06/10/2019 SERVICE TIME: 4:31 PM : 1975 Vitals: 06/10/19 0957 06/10/19 1305 06/10/19 1345 06/10/19 1420 Temp: 37.5 ?C (99.5 ?F) 36.4 ?C (97.5 ?F) 36.9 ?C (98.4 ?F) 37.5 ?C (99.5 ?F) 06/10/19 1315 06/10/19 1330 06/10/19 1345 06/10/19 1420 BP: 120/72 125/82 130/84 133/85 06/10/19 1330 06/10/19 1345 06/10/19 1400 06/10/19 1420 Pulse: 98 97 97 96 06/10/19 1330 06/10/19 1345 06/10/19 1400 06/10/19 1420 Resp: 23 20 20 20 06/10/19 1330 06/10/19 1345 06/10/19 1400 06/10/19 1420 SpO2: 94% 97% 96% 96% Validated Vital Signs: Yes POST ANES STATUS: No apparent anesthetic complications. The patient is appropriately hydrated with stable respiratory and cardiovascular status. Patient has safe and adequate airway control. The patient has appropriate pain relief and no significant post operative nausea or vomiting. The patient has achieved baseline mental status. Intra-Operative Events: No Significant Anesthesia Events Further assessment by Anesthesia Service: None Other Remarks: SIGNATURE: Blade Fernandez MD PATIENT NAME: Tori Cantor DATE: June 10, 2019 TIME: 4:31 PM PAGER/CONTACT # Salina Geronimo MD 06/13/2019 9:25 AM Signed [facility] - Consultation PATIENT NAME: TORI CANTOR CSN: [id number] DATE OF : 1975 SEX/AGE: M/44 PATIENT TYPE: I HOSP [facility] [place]: [facility] LOCATION: [id number] DATE OF SERVICE: 06/11/2019 TIME OF SERVICE: 12:03 PM REASON FOR CONSULTATION: Uncontrolled diabetes. HISTORY: The patient is a 44-year-old male who was admitted with left foot pain and left lower extremity cellulitis. The patient had left ankle fracture about 3 weeks ago, and he was going to have surgery, then he started having pain and infection. He also has bacteremia. The patient had surgery on 06/09/2019. He had debridement of left leg and ankle wounds and external fixation of left ankle fracture. Regarding diabetes, the patient has type 1 diabetes for 33 years. He has diabetic neuropathy and gastroparesis. The patient follows up with cleaner operator in [place]. His last appointment was September 2018. At that time, his A1c was 13.7. His insulin doses were increased and compliance was encouraged. The patient states he missed his appointment with cleaner operator since he was incarcerated from 03/09 to 05/18. After coming home, he had a fall and fracture of his left leg. The patient checks his blood sugars regularly, and they are frequently high, but they have been less than 300. He eats only 2 meals a day. The patient takes Levemir 25 units b.i.d. at home and Humalog 14 units with each meal and extra if his blood sugar is over 300. He had lost lot of weight earlier on this year, but has gained the weight back since February now. He does have numbness in his feet. The patient is not aware of any eye problems from diabetes and he is not aware of any kidney problems. PAST MEDICAL HISTORY: History of type 1 diabetes with neuropathy, history of gastroparesis, history of drug abuse and tobacco abuse, history of DKA in the past, history of hypertension. FAMILY HISTORY: Positive for diabetes in his mother who had type 2 insulin- requiring diabetes. SOCIAL HISTORY: The patient is 1 pack a day smoker. He has history of cocaine, marijuana use, although he states he has not been doing drugs lately. REVIEW OF SYSTEMS: As per history of present illness, otherwise, negative. PHYSICAL EXAMINATION: GENERAL: The patient is lying in bed. VITAL SIGNS: Height is 5 feet and 9 inches, weight is 200 pounds. Temperature 36.8, BP 138/79. SKIN: Warm and dry. Left foot and leg are bandaged and in an external frame. Right foot does not have ulcers or calluses. HEENT: Pupils appear round. NECK: Supple. No goiter palpable on thyroid exam. LUNGS: Clear to auscultation. CVS: Regular rate and rhythm. ABDOMEN: Soft, nontender. EXTREMITIES: There is no edema on the right foot. The patient has Charcot foot, right foot. Diminished pinprick sensation over the right foot. LABORATORY DATA: HbA1c 11.3. Sodium 126, potassium 4.4, chloride 95, CO2 of 22, BUN 40, creatinine 0.81. Blood sugars yesterday greater than 300 frequently. It was 414 this morning on the lab and critically high now. CLINICAL IMPRESSION: 1. Diabetes mellitus type 1, uncontrolled with severe hyperglycemia. The patient is on Levemir 25 units b.i.d. at home. The patient was only given 10 units of Lantus yesterday and 20 units of Lantus last night. This morning, when he was n.p.o., he refused his morning insulin, then he took it late, and now, his blood sugars are critically high. Blood sugar is also high due to pain and immobilization. 2. Diabetic neuropathy. 3. Left ankle fracture and dislocation, status post surgery on 06/10. 4. Bacteremia. ID is on consult. RECOMMENDATION: 1. Discussed with the patient the importance of glycemic control for wound healing and infection. 2. I will increase his programmed Lantus to 22 units twice a day. 3. For now, I will increase his programmed Humalog to 20 units with each meal with a sliding scale. 4. We will continue carb-controlled diet. We will follow the patient with you. Salina Geronimo MD Endocrinology SM:[email or web address] /[id number] Gareth Uriarte MD 06/12/2019 10:16 AM Addendum Orthopaedic INPATIENT PROGRESS NOTE A/P: 44 YO M POD1 s/p IANDD and external fixation LLE -Pain control -Weight-bearing status: NWB LLE -Elevate operative extremity. Keep bolster under left knee -Wound vac change on Thursday to going vac. Supplied by [employer]. 25 cm x 10 cm x 0.5 cm at greatest diameter -Management per primary -Antibiotics per ID: currently IV vanco -DVT Prophylaxis: SCD to RLE, per primary for chemical prophylaxis. Okay from ortho standpoint -Discharge planning. Okay for discharge from ortho standpoint when medically stable. No plans for surgical intervention by orthopedics this admission INTERVAL HPI: No acute events overnight. Pain controlled. MEDICATIONS: Current Facility-Administered Medications Medication Dose Route Frequency - vancomycin dosing and monitoring per pharmacy OTHER As Directed - vancomycin iv piggyback 1.25 g in D5W 250 mL (VANCOCIN) 1.25 g INTRAVENOUS q 12 HR - HYDROmorphone HCl 0.5 mg injection (DILAUDID) 0.5 mg INTRAVENOUS q 4 H PRN - pregabalin 150 mg cap(s) (LYRICA) 150 mg ORAL DAILY - lisinopril 10 mg tab(s) (ZESTRIL, PRINIVIL) 10 mg ORAL DAILY - pantoprazole DR 40 mg tab(s) (PROTONIX) 40 mg ORAL DAILY - DULoxetine 60 mg cap(s) (CYMBALTA) 60 mg ORAL BID - enoxaparin 40 mg injection (LOVENOX) 40 mg SUBCUTANEOUS DAILY - NaCl 0.9% 3-5 mL 3-5 mL INTRAVENOUS q 12 H - NaCl 0.9% iv infusion 100 mL/hr INTRAVENOUS CONTINUOUS - ondansetron 4 mg tab(s) (ZOFRAN) 4 mg ORAL q 6 H PRN Or - ondansetron (PF) 4 mg injection (ZOFRAN) 4 mg INTRAVENOUS q 6 H PRN - docusate sodium 100 mg cap(s) (COLACE) 100 mg ORAL BID PRN - bisacodyl 10 mg suppository (DULCOLAX) 10 mg RECTAL DAILY PRN - dextrose 40 % 15 g 15 g ORAL PRN Or - glucagon 1 mg injection (GLUCAGEN) 1 mg INTRAMUSCULAR PRN Or - dextrose 50 % 12.5 g injection 12.5 g INTRAVENOUS PRN - insulin lispro pen (rapid acting) (HumaLOG KWIKPEN) SUBCUTANEOUS q 6 H - insulin glargine 20 Units pen (long acting) (LANTUS SOLOSTAR, BASAGLAR KWIKPEN) 20 Units SUBCUTANEOUS BID PHYSICAL EXAM: BP 108/76 Pulse 105 Temp 37.3 ?C (99.1 ?F) (Oral) Resp 18 Ht 175.3 cm (5' 9) Wt 91 kg (200 lb 9.9 oz) SpO2 95% BMI 29.63 kg/m? Body mass index is 29.63 kg/m?. General appearance: NAD LLE: Dressing c/d/i, ex-fix in place Decreased sensation to light touch s/s/sp/dp/t Very slight ability to wiggle toes +2 dp/pt pulses DATA: CBC: No results for input(s): WBC, RBC, HB, HCT, PLT, MCV, MCH, MPV, RDW in the last 24 hours. BMP: No results for input(s): NA, K, CHLOR, CO2, BUN, CREAT, GLUC in the last 24 hours. IMAGING: no new images SIGNATURE: Alfred Salas MD PAGER: [phone] DATE of SERVICE: 06/11/2019 TIME of SERVICE: 6:40 AM Agree with resident assessment and plan. Previous Version Charlee Lee RN, RN 06/11/2019 8:40 AM Signed CARE MANAGEMENT PROGRESS NOTE SERVICE DATE: 06/11/2019 SERVICE TIME: 8:39 AM LOS: 2 days Needs Prior to Discharge: Precertification;[facility] medically ready. Will need precert to return. CM will continue to follow. SIGNATURE: Charele Lee RN PATIENT NAME: Tori Cantor DATE: June 11, 2019 TIME: 8:38 AM PAGER/CONTACT #: [phone] Donnell Garcia MD 06/11/2019 11:16 AM Signed INFECTIOUS DISEASE PROGRESS NOTE Patient Name: Tori Cantor Date: 06/11/2019 ASSESSMENT: 1. 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 LEFT LE cellulitis with purulence 3. Left ankle tri malleolar fracture with left leg cellulitis and infected fracture blisters placement of external fixator as well as I and D of the superficial abscess and puruelent blisters and wound vac application. There is NO hardware associated infection as there was no previous hardware( Clarified by ortho and mistakenly interpreted by ID) 4. leukocytosis PLAN: Continue with vancomycin to cover for bacillus and MSSA bacteremia. Normally would have switched to cefazolin but since he also has bacillus bacteremia, would keep the vancomycin going until this gram positive benny is speciated. JOANNA is pending INTERVAL HISTORY: ROS done with pt/RN and negative unless stated. Patient did not have a fever overnight He showed me pictures in his iphone as to how bad his wound looked MEDICATIONS: reviewed. Current Facility-Administered Medications Medication Dose Route Frequency - vancomycin dosing and monitoring per pharmacy OTHER As Directed - vancomycin iv piggyback 1.25 g in D5W 250 mL (VANCOCIN) 1.25 g INTRAVENOUS q 12 HR - HYDROmorphone HCl 0.5 mg injection (DILAUDID) 0.5 mg INTRAVENOUS q 4 H PRN - pregabalin 150 mg cap(s) (LYRICA) 150 mg ORAL DAILY - lisinopril 10 mg tab(s) (ZESTRIL, PRINIVIL) 10 mg ORAL DAILY - pantoprazole DR 40 mg tab(s) (PROTONIX) 40 mg ORAL DAILY - DULoxetine 60 mg cap(s) (CYMBALTA) 60 mg ORAL BID - enoxaparin 40 mg injection (LOVENOX) 40 mg SUBCUTANEOUS DAILY - NaCl 0.9% 3-5 mL 3-5 mL INTRAVENOUS q 12 H - NaCl 0.9% iv infusion 125 mL/hr INTRAVENOUS CONTINUOUS - ondansetron 4 mg tab(s) (ZOFRAN) 4 mg ORAL q 6 H PRN Or - ondansetron (PF) 4 mg injection (ZOFRAN) 4 mg INTRAVENOUS q 6 H PRN - docusate sodium 100 mg cap(s) (COLACE) 100 mg ORAL BID PRN - bisacodyl 10 mg suppository (DULCOLAX) 10 mg RECTAL DAILY PRN - dextrose 40 % 15 g 15 g ORAL PRN Or - glucagon 1 mg injection (GLUCAGEN) 1 mg INTRAMUSCULAR PRN Or - dextrose 50 % 12.5 g injection 12.5 g INTRAVENOUS PRN - insulin lispro pen (rapid acting) (HumaLOG KWIKPEN) SUBCUTANEOUS q 6 H - insulin glargine 20 Units pen (long acting) (LANTUS SOLOSTAR, BASAGLAR KWIKPEN) 20 Units SUBCUTANEOUS BID - perflutren lipid microspheres 1.1 mg/mL 1.3 mL injection (DEFINITY) 1.3 mL INTRAVENOUS DIRECTED PRN PHYSICAL EXAM: Vital signs: BP 138/79 Pulse 102 Temp 36.8 ?C (98.2 ?F) (Oral) Resp 17 Ht 175.3 cm (5' 9) Wt 91 kg (200 lb 9.9 oz) SpO2 97% BMI 29.63 kg/m? Temp (24hrs), Av.9 ?C (98.5 ?F), Min:36.4 ?C (97.5 ?F), Max:37.5 ?C (99.5 ?F) General: alert, oriented, NAD Lungs: bilaterally clear to auscultation Heart: regular rate and rhythm Abdomen: soft, non tender, non distended, BS+ Extremities: left foot external fixator in place with thick fat dressing in place Skin: no rash IV sites - wnl Lab data: reviewed Recent Labs 06/11/19 0745 06/10/19 0230 06/09/19 1935 06/09/19 1556 06/09/19 1548 06/08/192024 WBC 24.89* 26.84* -- -- 27.50* 23.44* HB 9.9* 10.3* -- -- 11.4* 12.2* PLT 255 206 -- -- 187 223 INR -- 1.09 -- -- 1.08 -- NA 126* 129* -- -- 127* 128* K 4.4 3.9 -- -- 3.8 3.7 CO2 22 25 -- -- 26 30 BUN 40* 36* -- -- 35* 31* CREAT 0.81 0.91 -- -- 1.03 0.78 AST 10* 33 -- -- 44* -- ALT 27 36 -- -- 42 -- TBILI 2.1* 2.2* -- -- 2.3* -- ALKPHOS 322* 327* -- -- 386* -- WSR -- -- -- -- -- 84* CRP -- -- -- -- -- 23.80* LACT -- -- 1.4 2.0 -- -- Microbiology data: reviewed Imaging data: reviewed Donnell Garcia MD General and Orthopedics Infectious Diseases Pager: [phone] Salina Geronimo MD 06/11/2019 12:02 PM Signed I have reviewed the patient's medical record in detail. Consult note dictated. See new insulin orders. MD Osito Duarte DO 06/11/2019 5:30 PM Addendum DEPARTMENT OF HOSPITAL MEDICINE PROGRESS NOTE SERVICE DATE: 06/11/2019 SERVICE TIME: 2:59 PM Hospital Medicine/Primary Attending: Osito Reyes DO NIGHT AND WEEKEND COVERAGE: After 7pm please page [phone] CHIEF COMPLAINT: L foot pain SUBJECTIVE: Pt seen and examined. States he has some L foot pain but seems controlled with pain meds. He has been refusing insulin at times. He denies CP, SOB, vomiting, diarrhea, headache, fever/chills or abdominal pain. OBJECTIVE: PHYSICAL EXAM: BP 138/79 Pulse 102 Temp (Src) 98.2 (Oral) Resp 17 Ht 5' 9 (1.75m) Wt 200 lb 9.9 oz (91.0kg) SpO2 97% BMI 29.61 kg/(m2). O2 Therapy: Room Air General - AANDOx3, NAD, calm CV - RRR S1 S2, No M/R/G RESP - CTAB, No wheezes, ronchi, rales ABD - soft, NT, ND +BS EXT - L foot with ext fixation device, foot warm, 3(+) distal pulses, no cyanosis NEURO - CN II-XII grossly intact MEDICATIONS: Current Facility-Administered Medications Medication Dose Route Frequency - vancomycin dosing and monitoring per pharmacy OTHER As Directed - vancomycin iv piggyback 1.25 g in D5W 250 mL (VANCOCIN) 1.25 g INTRAVENOUS q 12 HR - HYDROmorphone HCl 0.5 mg injection (DILAUDID) 0.5 mg INTRAVENOUS q 4 H PRN - pregabalin 150 mg cap(s) (LYRICA) 150 mg ORAL DAILY - lisinopril 10 mg tab(s) (ZESTRIL, PRINIVIL) 10 mg ORAL DAILY - pantoprazole DR 40 mg tab(s) (PROTONIX) 40 mg ORAL DAILY - DULoxetine 60 mg cap(s) (CYMBALTA) 60 mg ORAL BID - enoxaparin 40 mg injection (LOVENOX) 40 mg SUBCUTANEOUS DAILY - NaCl 0.9% 3-5 mL 3-5 mL INTRAVENOUS q 12 H - NaCl 0.9% iv infusion 125 mL/hr INTRAVENOUS CONTINUOUS - ondansetron 4 mg tab(s) (ZOFRAN) 4 mg ORAL q 6 H PRN Or - ondansetron (PF) 4 mg injection (ZOFRAN) 4 mg INTRAVENOUS q 6 H PRN - docusate sodium 100 mg cap(s) (COLACE) 100 mg ORAL BID PRN - bisacodyl 10 mg suppository (DULCOLAX) 10 mg RECTAL DAILY PRN - dextrose 40 % 15 g 15 g ORAL PRN Or - glucagon 1 mg injection (GLUCAGEN) 1 mg INTRAMUSCULAR PRN Or - dextrose 50 % 12.5 g injection 12.5 g INTRAVENOUS PRN - perflutren lipid microspheres 1.1 mg/mL 1.3 mL injection (DEFINITY) 1.3 mL INTRAVENOUS DIRECTED PRN - insulin lispro pen (rapid acting) (HumaLOG KWIKPEN) SUBCUTANEOUS w MEALS - insulin glargine 25 Units pen (long acting) (LANTUS SOLOSTAR, BASAGLAR KWIKPEN) 25 Units SUBCUTANEOUS BID - insulin lispro 20 Units pen (rapid acting) (HumaLOG KWIKPEN) 20 Units SUBCUTANEOUS w MEALS DATA: Diagnostic tests reviewed for today's visit: CBC: Recent Labs 06/11/19 0745 WBC 24.89* RBC 3.42* HB 9.9* HCT 28.8* PLT 255 MCV 84.2 MCH 28.9 MPV 11.2 RDW 13.4 Coags: No results for input(s): INR, APTT in the last 24 hours. Invalid input(s): PT BMP: Recent Labs 06/11/19 0745 NA 126* K 4.4 CHLOR 95* CO2 22 BUN 40* CREAT 0.81 GLUC 414* CMP: Recent Labs 06/11/19 0745 NA 126* K 4.4 CHLOR 95* CO2 22 BUN 40* CREAT 0.81 GLUC 414* TPROT 5.7* CA 8.6 TBILI 2.1* ALKPHOS 322* ALT 27 AST 10* ANION 13 Cardiac Enzymes: No results for input(s): CK, MB, CKMB, TROPT in the last 24 hours. Liver Function, Amylase, Lipase: Recent Labs 06/11/19 0745 TPROT 5.7* ALB 1.7* ALT 27 AST 10* ALKPHOS 322* TBILI 2.1* MG/PHOS: No results for input(s): MG, P in the last 24 hours. Renal Panel: Recent Labs 06/11/19 0745 CREAT 0.81 BUN 40* GLUC 414* CA 8.6 CHLOR 95* K 4.4 CO2 22 NA 126* Heme: No results for input(s): RETICP, ABSRETIC, LD, VIKRAM, FE, TIBC, TRANSFERSAT in the last 24 hours. No results found for: UALBCR Assessment/Plan #Sepsis 2/2 LLE cellulitis and S. Aureus bacteremia -in setting of L trimalleolar ankle fracture -Ortho consult -IANDD and placement of external fixator 06/10 -continue IV Vanc -ID consult -monitor blood cultures ? #S. Aureus bacteremia -continue IV Vanc -monitor cultures -Echo ordered ? #Hyponatremia- 2/2 dehydration, poor PO intake, and Hyperglycemia -continue IVF, daily BMP. Will eat food after RUQ US today. -needs improved glycemic control -ADDENDUM 06/11 1730: Na 124- called Dr. Osoroi who recommends holding NSS IVF. Check urine lytes. Repeat BMP in 4 hours and notify Nephrology of results. He is asymptomatic currently. Need better blood glucose as well- nursing is calling endocrine for BG in 400s. ? #Leukocytosis- 2/2 bacteremia and cellulitis as above. Monitor vitals. Daily CBC. ? #Hyperbilirubinemia and elevated ALP, elevated LFTs -possible 2/2 sepsis? Will trend liver enzymes, consider GI consult if not improving. -Check US RUQ. ? #IDDM, uncontrolled- Discussed importance of compliance. -Endocrine consult -Increase lantus and lispro mealtime doses. Continue SSIC ? #HTN-continue home lisinopril ? #Medical noncompliance ? #IVDA ? ? VTE Prophylaxis: Lovenox 40mg Sub Q Daily ? Disposition: SNF likely Plan of care discussed with: Provider, RN, Patient SIGNATURE: Osito Reyes DO PATIENT NAME: Tori Cantor DATE: June 11, 2019 TIME: 2:59 PM PAGER/CONTACT #: Team color pager Previous Version Hortencia Osorio MD 06/11/2019 6:23 PM Signed Chart reviewed Full consult to follow D/w Dr Reyes Please see orders Urine lytes ordered Needs increaed po osmoles Cut cymbalta and hold at this time It can trigger ADH increase Osito Post, Research Project Manager 06/11/2019 6:33 PM Signed PHARMACY VANCOMYCIN DOSING NOTE Patient Name: Tori Cantor Admission Date: 06/09/2019 Date of Consult: 06/11/2019 Time of Consult: 6:27 PM Indication: Skin/Soft tissue infection Goal Range: 10-20 mcg/mL RECOMMENDATIONS/PLAN: Pharmacy consulted for vancomycin dosing for Tori Cantor, a 44 year old, male who is being treated with vancomycin for LEFT LE cellulitis And bacteremia. 1. Patient is currently ordered Vancomycin 1.25 g IV q12h. Today is day 3 of therapy. 2. The most recent vancomycin level was 16.7 mcg/mL drawn at 15:35 on 06-11. This is a 8.5 hour level on the 3rd day of therapy. 3. The present dose of vancomycin is the recommended dosage for this patient at this time. Continue therapy as prescribed. 4. The next vancomycin level will be ordered for 06-16 unless clinically indicated sooner. (Pharmacy will order) We will follow patient renal function, vancomycin levels and doses with you during the course of therapy. Additional recommendations will appear in follow up notes. If you have any questions, please contact Osito Post, Research Project Manager at [phone]. Age: [age] year old Allergies: ALLERGIES No Known Allergies Last 3 Encounter Wt Readings: Date: Wt: 06/09/2019 91 kg (200 lb 9.9 oz) 06/08/2019 88 kg (194 lb) 06/02/2019 79.4 kg (175 lb) Last 1 Encounter Ht Readings: Date: Ht: 06/09/2019 175.3 cm (5' 9) CrCl: 146.4 mL/min Temp (24hrs), Av ?C (98.6 ?F), Min:36.7 ?C (98.1 ?F), Max:37.4 ?C (99.3 ?F) - Current Temp: 36.7 ?C (98.1 ?F) Labs BUN (mg/dL) Date Value 06/11/2019 37 (H) 06/11/2019 40 (H) 06/10/2019 36 (H) Creatinine (mg/dL) Date Value 06/11/2019 0.71 06/11/2019 0.81 06/10/2019 0.91 WBC (thou/cmm) Date Value 06/11/2019 24.89 (H) 06/10/2019 26.84 (HH) 06/09/2019 27.50 (HH) Vancomycin Levels: Vancomycin,Random (mg/L) Date/Time Value 06/11/2019 1535 16.7 Osito Post, Research Project Manager Yaneli Davison, RN, RN 06/12/2019 6:44 AM Addendum Nursing Progress Note Patient Name: Tori Cantor Patient Location: [id number] Osorio x2 for resulted bmp, urine osmolality, chloride, and sodium as per requested. No critical results. Nursing will continue to monitor. This note was completed by: Yaneli Davison RN Previous Version Gareth Uriarte MD 06/12/2019 10:17 AM Addendum Orthopaedic INPATIENT PROGRESS NOTE A/P: 44 YO M POD2 s/p IANDD and external fixation LLE ? -Pain control -Weight-bearing status:?NWB LLE -Elevate operative extremity. Keep bolster under left knee -Wound vac change on Thursday to homegoing vac. Supplied by [facility]. 25 cm x 10 cm x 0.5 cm at greatest diameter -Management per primary -Antibiotics per ID: currently IV vanco -DVT Prophylaxis: SCD?to RLE,?per primary for chemical prophylaxis. Okay from ortho standpoint -Discharge planning. Okay for discharge from ortho standpoint when medically stable. No plans for surgical intervention by orthopedics this admission ? INTERVAL HPI: ? No acute events overnight. Pain controlled MEDICATIONS: Current Facility-Administered Medications Medication Dose Route Frequency - vancomycin dosing and monitoring per pharmacy OTHER As Directed - vancomycin iv piggyback 1.25 g in D5W 250 mL (VANCOCIN) 1.25 g INTRAVENOUS q 12 HR - HYDROmorphone HCl 0.5 mg injection (DILAUDID) 0.5 mg INTRAVENOUS q 4 H PRN - pregabalin 150 mg cap(s) (LYRICA) 150 mg ORAL DAILY - lisinopril 10 mg tab(s) (ZESTRIL, PRINIVIL) 10 mg ORAL DAILY - pantoprazole DR 40 mg tab(s) (PROTONIX) 40 mg ORAL DAILY - enoxaparin 40 mg injection (LOVENOX) 40 mg SUBCUTANEOUS DAILY - NaCl 0.9% 3-5 mL 3-5 mL INTRAVENOUS q 12 H - ondansetron 4 mg tab(s) (ZOFRAN) 4 mg ORAL q 6 H PRN Or - ondansetron (PF) 4 mg injection (ZOFRAN) 4 mg INTRAVENOUS q 6 H PRN - docusate sodium 100 mg cap(s) (COLACE) 100 mg ORAL BID PRN - bisacodyl 10 mg suppository (DULCOLAX) 10 mg RECTAL DAILY PRN - dextrose 40 % 15 g 15 g ORAL PRN Or - glucagon 1 mg injection (GLUCAGEN) 1 mg INTRAMUSCULAR PRN Or - dextrose 50 % 12.5 g injection 12.5 g INTRAVENOUS PRN - perflutren lipid microspheres 1.1 mg/mL 1.3 mL injection (DEFINITY) 1.3 mL INTRAVENOUS DIRECTED PRN - insulin lispro pen (rapid acting) (HumaLOG KWIKPEN) SUBCUTANEOUS w MEALS - [START ON 06/13/2019] DULoxetine 20 mg cap(s) (CYMBALTA) 20 mg ORAL BID - insulin glargine 30 Units pen (long acting) (LANTUS SOLOSTAR, BASAGLAR KWIKPEN) 30 Units SUBCUTANEOUS BID - insulin lispro 24 Units pen (rapid acting) (HumaLOG KWIKPEN) 24 Units SUBCUTANEOUS w MEALS PHYSICAL EXAM: BP 137/77 Pulse 98 Temp 36.6 ?C (97.9 ?F) (Oral) Resp 16 Ht 175.3 cm (5' 9) Wt 91 kg (200 lb 9.9 oz) SpO2 95% BMI 29.63 kg/m? Body mass index is 29.63 kg/m?. General appearance: NAD LLE: Dressing c/d/i, ex-fix in place Decreased sensation to light touch s/s/sp/dp/t Very slight ability to wiggle toes +2 dp/pt pulses DATA: CBC: Recent Labs 06/12/19437 WBC 21.82* RBC 3.40* HB 9.7* HCT 28.6* PLT 285 MCV 84.1 MCH 28.5 MPV 11.1 RDW 13.3 BMP: Recent Labs 06/12/19437 NA 128* K 3.7 CHLOR 98 CO2 26 BUN 32* CREAT 0.67 GLUC 221* IMAGING: no new images SIGNATURE: Alfred Salas MD PAGER: [phone] DATE of SERVICE: 06/12/2019 TIME of SERVICE: 6:53 AM Agree with resident assessment and plan. WBC trending down. Previous Version Salina Geronimo MD 06/12/2019 10:53 AM Signed ENDOCRINOLOGY CONSULT PROGRESS NOTE SERVICE DATE: 06/12/2019 SERVICE TIME: 10:00 AM Subjective INTERVAL HPI: Following for DM type 1. Adm with left ankle fracture after a fall, has left leg infection, cellulitis. Notes and orders reviewed. Diet: DIET CARBOHYDRATE CONTROLLED p.o intake good, following diet. Activity:Bedrest Review of Systems: PAIN ASSESSMENT: c/o left ankle pain (12/27) GENERAL: has fatigue, malaise, no fever/chills RESPIRATORY: Negative for cough, hemoptysis, wheezing, COPD, dyspnea or shortness of breath CARDIOVASCULAR: Negative for chest pain, leg swelling, hypertension, CHF or palpitations GI: No nausea, vomiting, or diarrhea ENDOCRINE: Negative for cold or heat intolerance, polyuria or polydipsia. The remainder of the review of systems is negative. Current Facility-Administered Medications Medication Dose Route Frequency - vancomycin dosing and monitoring per pharmacy OTHER As Directed - vancomycin iv piggyback 1.25 g in D5W 250 mL (VANCOCIN) 1.25 g INTRAVENOUS q 12 HR - HYDROmorphone HCl 0.5 mg injection (DILAUDID) 0.5 mg INTRAVENOUS q 4 H PRN - pregabalin 150 mg cap(s) (LYRICA) 150 mg ORAL DAILY - lisinopril 10 mg tab(s) (ZESTRIL, PRINIVIL) 10 mg ORAL DAILY - pantoprazole DR 40 mg tab(s) (PROTONIX) 40 mg ORAL DAILY - enoxaparin 40 mg injection (LOVENOX) 40 mg SUBCUTANEOUS DAILY - NaCl 0.9% 3-5 mL 3-5 mL INTRAVENOUS q 12 H - ondansetron 4 mg tab(s) (ZOFRAN) 4 mg ORAL q 6 H PRN Or - ondansetron (PF) 4 mg injection (ZOFRAN) 4 mg INTRAVENOUS q 6 H PRN - docusate sodium 100 mg cap(s) (COLACE) 100 mg ORAL BID PRN - bisacodyl 10 mg suppository (DULCOLAX) 10 mg RECTAL DAILY PRN - dextrose 40 % 15 g 15 g ORAL PRN Or - glucagon 1 mg injection (GLUCAGEN) 1 mg INTRAMUSCULAR PRN Or - dextrose 50 % 12.5 g injection 12.5 g INTRAVENOUS PRN - perflutren lipid microspheres 1.1 mg/mL 1.3 mL injection (DEFINITY) 1.3 mL INTRAVENOUS DIRECTED PRN - insulin lispro pen (rapid acting) (HumaLOG KWIKPEN) SUBCUTANEOUS w MEALS - [START ON 06/13/2019] DULoxetine 20 mg cap(s) (CYMBALTA) 20 mg ORAL BID - insulin glargine 30 Units pen (long acting) (LANTUS SOLOSTAR, BASAGLAR KWIKPEN) 30 Units SUBCUTANEOUS BID - insulin lispro 24 Units pen (rapid acting) (HumaLOG KWIKPEN) 24 Units SUBCUTANEOUS w MEALS Objective PHYSICAL EXAM: GENERAL: sleepy, no distress, cooperative, lying in bed SKIN: no rash/ bruising OROPHARYNX: moist LUNGS: Lungs clear to auscultation, Good diaphragmatic excursion CARDIAC: Normal S1 and S2; no rubs, murmurs, or gallops ABDOMEN: Abdomen soft, non-tender, BS normal, No masses or organomegaly EXTREMITIES: left leg in a bandage and external fixation frame; right foot charcot's deformity, no ulcers BP 138/82 Pulse 102 Temp (Src) 97.9 (Oral) Resp 16 Ht 5' 9 (1.75m) Wt 200 lb 9.9 oz (91.0kg) SpO2 95% BMI 29.61 kg/(m2). O2 Therapy: Room Air DATA: Diagnostic tests reviewed for today's visit: Most recent labs and imaging results. Last 24 hr BS reviewed. Recent Labs 06/12/19 0639 06/12/19 0438 06/11/19 2150 06/11/19 2120 06/11/19 1535 06/11/19 1108 06/11/19 0745 06/11/19 0619 06/10/19 2106 06/10/19 0230 GLUC -- 221* -- 275* 415* -- 414* -- -- -- 270* GLUCOSEMETER 233* -- 298* -- -- >400* -- 388* 342* < > -- < > = values in this interval not displayed. 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 Home Rx is Levemir 25 units bid and Novolog 14 units tid with SSI. Was on 70/30 from 03/09 till 05/18 (while incarcerated) Saw Endo in [place] in September,; due for appt? Started on lantus 25 units bid and Humalog 20 units tid here. BS still very high, increased Lantus to 30 units bid last night and Humalog to 24 unist tid from today am. Cellulitis/abscess left ankle, s/p debridement and external fixation of ankle fracture on 06/10 Hyponatremia, renal on board, evidence of SIADH, Na 128(124)(126) IVDU (intravenous drug user) POA: Yes Assessment AND Plan: hx Closed fracture of left ankle POA: Yes Assessment AND Plan: trimalleolar, 3 weeks ago after a fall SIGNATURE: Salina Geronimo MD PATIENT NAME: Tori Cantor DATE: June 12, 2019 TIME: 10:51 AM PAGER: [phone] Hortencia Osorio MD 06/12/2019 4:27 PM Signed [facility] Nephrology Consultation Note Reason for consultation: Hyponatremia Chief Complaint: L foot pain History of Presenting Illness This is a 44 year old male with a PMHx of DM, HTN, past drug abuse, tobacco abuse as well as listed below who was admitted on 06/09 for left foot pain with cellutitis. He had ortho consult and had IANDD on 06/10. Receiving IV vancomycin for infection. The patient has been hyponatremic since admission. We were consulted for hyponatremia which is currently at 128 up from 124 yesterday. He states he has barely ate any food since admission and drinking 5-6 cups of water a day. Denies any N/V/D. C/O of lower middle back pain and left lower extremity pain. Edema to lower extremities is new per patient. Denies any chest pain or SOB. Past Medical/Surgical History PAST MEDICAL HISTORY Diagnosis Date - Diabetes (HCC) - DKA (diabetic ketoacidosis) (HCC) 08/2014 - Hyperglycemia 05/27/2019 - Hypertension - IVDU (intravenous drug user) 05/27/2019 - Lactose intolerance 07/30/2016 - Left ankle joint deformity 05/27/2019 - Pancreatitis 08/2014 - Tobacco abuse 05/27/2019 - Trimalleolar fracture of left ankle PAST SURGICAL HISTORY Procedure Laterality Date - NONE Review of Systems All 12 systems reviewed and are negative except for what is mentioned in the HPI. Medications Current Facility-Administered Medications Medication Dose Route Frequency - perflutren lipid microspheres 1.1 mg/mL 1.3 mL injection (DEFINITY) 1.3 mL INTRAVENOUS DIRECTED PRN - insulin lispro pen (rapid acting) (HumaLOG KWIKPEN) SUBCUTANEOUS w MEALS - [START ON 06/13/2019] DULoxetine 20 mg cap(s) (CYMBALTA) 20 mg ORAL BID - insulin glargine 30 Units pen (long acting) (LANTUS SOLOSTAR, BASAGLAR KWIKPEN) 30 Units SUBCUTANEOUS BID - insulin lispro 24 Units pen (rapid acting) (HumaLOG KWIKPEN) 24 Units SUBCUTANEOUS w MEALS - vancomycin dosing and monitoring per pharmacy OTHER As Directed - vancomycin iv piggyback 1.25 g in D5W 250 mL (VANCOCIN) 1.25 g INTRAVENOUS q 12 HR - HYDROmorphone HCl 0.5 mg injection (DILAUDID) 0.5 mg INTRAVENOUS q 4 H PRN - pregabalin 150 mg cap(s) (LYRICA) 150 mg ORAL DAILY - lisinopril 10 mg tab(s) (ZESTRIL, PRINIVIL) 10 mg ORAL DAILY - pantoprazole DR 40 mg tab(s) (PROTONIX) 40 mg ORAL DAILY - enoxaparin 40 mg injection (LOVENOX) 40 mg SUBCUTANEOUS DAILY - NaCl 0.9% 3-5 mL 3-5 mL INTRAVENOUS q 12 H - ondansetron 4 mg tab(s) (ZOFRAN) 4 mg ORAL q 6 H PRN Or - ondansetron (PF) 4 mg injection (ZOFRAN) 4 mg INTRAVENOUS q 6 H PRN - docusate sodium 100 mg cap(s) (COLACE) 100 mg ORAL BID PRN - bisacodyl 10 mg suppository (DULCOLAX) 10 mg RECTAL DAILY PRN - dextrose 40 % 15 g 15 g ORAL PRN Or - glucagon 1 mg injection (GLUCAGEN) 1 mg INTRAMUSCULAR PRN Or - dextrose 50 % 12.5 g injection 12.5 g INTRAVENOUS PRN Allergies Patient has no known allergies. Family History Negative for Kidney Disease FAMILY HISTORY Problem Relation Age of Onset - Hypertension Mother - Diabetes Mother - Stroke Mother - Heart Mother CHF - Cataract Mother - Hypertension Father - COPD Father - Emphysema Father Social History Social History Tobacco Use - Smoking status: Current Every Day Smoker Packs/day: 1.00 Types: Cigarettes - Smokeless tobacco: Never Used Substance Use Topics - Alcohol use: Yes Comment: socially - Drug use: Yes Types: Cocaine, Amphetamines Comment: hist of cocaine and marajuana use, fentanyl Physical Exam Blood pressure 138/82, pulse 102, temperature 36.8 ?C (98.2 ?F), temperature source Oral, resp. rate 16, height 175.3 cm (5' 9), weight 91 kg (200 lb 9.9 oz), SpO2 95 %. 24 HR INTAKE/OUTPUT: Intake/Output Summary (Last 24 hours) at 06/12/2019 1236 Last data filed at 06/12/2019 0833 Gross per 24 hour Intake 840 ml Output 2650 ml Net -1810 ml General: NAD, Comfortable appearing, cooperative to history and physical exam. Head: AT NC Neck: Supple, no jvd EENT: eyes nonicteric, mm slightly dry Chest: Wheezing throughout auscultation, no crackles, no accessory muscles usage. CV: RRR, good S1 or S2. no murmurs or rubs Abdomen: NT, ND, soft Extremities: +1 to RLE peripheral edema, no tremor Neurological: Moving all four extremities, no focal neurological deficit Psychiatric: Normal insight and judgement, good recall Data CBC, Coags, BMP, Mg, Phos Recent Labs 06/12/19 0438 06/11/19 2120 06/11/19 1535 06/11/19 0745 06/10/19 0230 06/09/19 1548 WBC 21.82* -- -- 24 (more content not included)... Normal [facility] Hemogram/Diffon 06-09-2019 Abs Immature Grans 1.07 thou/cmm High 0.00-0.05 [facility] Comment on above: Performed By: #### G FR #### [address] [address] Abs Neut (ANC) 22.72 thou/cmm High 1.78-5.38 [facility] Comment on above: Performed By: #### G FR #### [address] [address] Abs. Baso 0.08 thou/cmm Normal 0.01-0.08 [facility] Comment on above: Performed By: #### G FR #### [address] [address] Abs. [place] 2.67 thou/cmm High 0.30-0.82 [facility] Comment on above: Performed By: #### G FR #### [address] [address] Basophils/100 WBC (Bld) 0.3 % Normal [facility] Comment on above: Performed By: #### G FR #### [address] [address] Eosinophils (Bld) [#/Vol] 0.06 thou/cmm Normal 0.04-0.54 [facility] Comment on above: Performed By: #### G FR #### [address] [address] Eosinophils/100 WBC (Bld) 0.2 % Normal [facility] Comment on above: Performed By: #### G FR #### [address] [address] Immature Grans 3.90 % Normal [facility] Comment on above: Performed By: #### G FR #### [facility] [address] [place], [place] [address] Lymphocytes (Bld) [#/Vol] 0.91 thou/cmm Normal 0.84-2.85 [facility] Comment on above: Performed By: #### G FR #### [facility] [address] [place], [place] [address] Lymphocytes/100 WBC (Bld) 3.3 % Normal [facility] Comment on above: Performed By: #### G FR #### [facility] [address] [place], [place] [address] Monocytes/100 WBC (Bld) 9.7 % Normal [facility] Comment on above: Performed By: #### G FR #### [facility] [address] [place], [place] [address] Seg Neutrophil 82.6 % Normal [facility] Comment on above: Performed By: #### G FR #### [facility] [address] [place] [address] Plasmacytes Few Normal [facility] Comment on above: Performed By: #### G FR #### [facility] [address] [place] [address] Erythrocyte distribution width (RBC) [Ratio] 12.7 % Normal 11.6-14.4 [facility] Comment on above: Performed By: #### G FR #### [facility] [address] [place] [address] Hematocrit (Bld) [Volume fraction] 34.9 % Low 40.1-51.0 [facility] Comment on above: Performed By: #### G FR #### [facility] [address] [place], [place] [address] Hemoglobin (Bld) [Mass/Vol] 11.4 g/dL Low 13.7-17.5 [facility] Comment on above: Performed By: #### G FR #### [facility] [address] [place], [place] [address] MCH (RBC) [Entitic mass] 28.6 pg Normal 25.7-32.2 [facility] Comment on above: Performed By: #### G FR #### [facility] [address] [place] [address] MCHC (RBC) [Mass/Vol] 32.7 % Normal 32.3-36.5 [facility] Comment on above: Performed By: #### G FR #### [facility] [address] [place] [address] MCV (RBC) [Entitic vol] 87.5 fL Normal 83.2-95.6 [facility] Comment on above: Performed By: #### G FR #### [facility] [address] [place] [address] Platelet mean volume (Bld) [Entitic vol] 12.1 fL High 8.7-12.0 [facility] Comment on above: Performed By: #### G FR #### [place] [address] Platelets (Bld) [#/Vol] 187 thou/cmm Normal 141-365 [facility] Comment on above: Performed By: #### G FR #### [place] [address] RBC (Bld) [#/Vol] 3.99 mil/cmm Low 4.63-6.08 [facility] Comment on above: Performed By: #### G FR #### [place] [address] RDW SD 40.7 fl Normal 36.1-45.8 [facility] Comment on above: Performed By: #### G FR #### [facility] [address] [place] [address] WBC (Bld) [#/Vol] 27.50 thou/cmm Critically high 4.23-9.07 [facility] Comment on above: Result Comment: Repe ated AND verified Performed By: #### G FR #### [place] [address] Lactic Acidon 06-09-2019 Lactate [Moles/Vol] 1.4 mmol/L Normal 0.4-2.0 [facility] Comment on above: Performed By: #### L AC ####[facility] [place], [place] [address] Lactate [Moles/Vol] 2.0 mmol/L Normal 0.5-2.2 [facility] Comment on above: Performed By: #### G FR #### [facility] [address] [place], [place] [address] Protimeon 06-09-2019 INR Coag (PPP) [Relative time] 1.08 {INR} Normal 0.90-1.30 [facility] Comment on above: Result Comment: Nimisha min K Antagonist (VKA) Therapeutic Range: INR 2 to 3 (Target INR of 2.5) Note: For patients treated with VKA drugs, such as warfarin, the [employer] [employer] 2012 Guideline recommends a therapeutic INR range of 2 to 3 (target INR of 2.5). This recommendation includes high-risk patients with antiphospholipid syndrome with previous arterial or venous thromboembolism, current-generation mechanical or bioprosthetic aortic heart valve replacement. Note: Patients with mechanical aortic valve replacement and additional risk factors for thromboembolic events (atrial fibrillation, previous thromboembolism, LV dysfunction, hypercoagulable conditions) or an older generation mechanical AVR (i.e., ball in-Cage) or any mechanical MVR should have a INR therapeutic range of 2.5 to 3.5 target INR of 3). Ugo GH, et al. Chest 2012; 141:7S-47S Anatoliy RA et al. [facility] 2017; 70: 252-289 Performed By: #### G FR #### [facility] [address] [place], [place] [address] PT Coag (PPP) [Time] 11.6 s Normal 9.7-13.0 [facility] Comment on above: Performed By: #### G FR #### [facility] [address] [place], [place] [address] XR ANKLE 3V AP/LAT/OBL LTon 06-09-2019 XR ANKLE 3V AP/LAT/OBL LT * * *Final Report* * * DATE OF EXAM: Jun 09 2019 5:14PM [id number] - XR ANKLE 3V AP/LAT/OBL LT / PROCEDURE REASON: Fracture, ankle * * * * Physician Interpretation * * * * LEFT TIBIA/FIBULA AND LEFT ANKLE CLINICAL INDICATION: Left ankle fracture COMPARISON: Left ankle and left tibia/fibula 06/08/2019 FINDINGS: Frontal and lateral views of the left tibia/fibula, frontal, oblique and lateral views of the left ankle. A displaced oblique fracture through the distal fibular shaft just above the ankle mortise is again demonstrated. A mildly displaced transverse fracture across the base of the medial malleolus is noted. The fractured medial malleolus is laterally displaced about 6 mm. The ankle mortise is laterally subluxed relative to the tibial plafond. There is soft tissue irregularity along the anteromedial aspect of the lower leg corresponding to a soft tissue wound. Soft tissue gas is present along the medial and lateral aspects of the lower leg. Atherosclerotic vascular calcifications are noted. There is diffuse soft tissue swelling extending into the foot. The fibula and tibia are otherwise intact. IMPRESSION: 1. Acute displaced medial and lateral malleoli fractures with lateral subluxation of the ankle. Alignment is unchanged. 2. Soft tissue irregularity along the anteromedial aspect of the lower leg corresponding to soft tissue wound. Soft tissue gas is present along the medial and lateral aspects of the lower leg. Diffuse soft tissue swelling. [facility] Transcribe Date/Time: Jun 09 2019 5:20P Dictated by : ROBER MCGOWAN MD This examination was interpreted and the report reviewed and electronically signed by: ROBER MCGOWAN MD on Jun 09 2019 5:25PM [facility] Normal [facility] XR TIBIA FIBULA 2V AP/LAT LT on 06-09-2019 XR TIBIA FIBULA 2V AP/LAT LT * * *Final Report* * * DATE OF EXAM: Jun 09 2019 5:14PM [id number] - XR TIBIA FIBULA 2V AP/LAT LT / PROCEDURE REASON: Fracture non-union, ankle * * * * Physician Interpretation * * * * LEFT TIBIA/FIBULA AND LEFT ANKLE CLINICAL INDICATION: Left ankle fracture COMPARISON: Left ankle and left tibia/fibula 06/08/2019 FINDINGS: Frontal and lateral views of the left tibia/fibula, frontal, oblique and lateral views of the left ankle. A displaced oblique fracture through the distal fibular shaft just above the ankle mortise is again demonstrated. A mildly displaced transverse fracture across the base of the medial malleolus is noted. The fractured medial malleolus is laterally displaced about 6 mm. The ankle mortise is laterally subluxed relative to the tibial plafond. There is soft tissue irregularity along the anteromedial aspect of the lower leg corresponding to a soft tissue wound. Soft tissue gas is present along the medial and lateral aspects of the lower leg. Atherosclerotic vascular calcifications are noted. There is diffuse soft tissue swelling extending into the foot. The fibula and tibia are otherwise intact. IMPRESSION: 1. Acute displaced medial and lateral malleoli fractures with lateral subluxation of the ankle. Alignment is unchanged. 2. Soft tissue irregularity along the anteromedial aspect of the lower leg corresponding to soft tissue wound. Soft tissue gas is present along the medial and lateral aspects of the lower leg. Diffuse soft tissue swelling. Av Specialist: [facility] Transcribe Date/Time: Jun 09 2019 5:20P Dictated by : ROBER MCGOWAN MD This examination was interpreted and the report reviewed and electronically signed by: ROBER MCGOWAN MD on Jun 09 2019 5:25PM EST Normal [facility] Basic Panelon 06-08-2019 Creatinine [Mass/Vol] 0.78 mg/dL Normal 0.67-1.17 [facility] Comment on above: Performed By: #### P 8 #### [address] [address] Anion gap [Moles/Vol] 9 mmol/L Normal 8-16 [facility] Comment on above: Performed By: #### P 8 #### [facility] [address] [place], [place] [address] CO2 [Moles/Vol] 30 mmol/L Normal 21-32 [facility] Comment on above: Performed By: #### P 8 #### [facility] [address] [place], [place] [address] Glucose [Mass/Vol] 174 mg/dL High 70-99 [facility] Comment on above: Performed By: #### P 8 #### [address] [address] Urea nitrogen [Mass/Vol] 31 mg/dL High 7-18 [facility] Comment on above: Performed By: #### P 8 #### [address] [place], [place] [address] Calcium [Mass/Vol] 9.4 mg/dL Normal 8.5-10.1 [facility] Comment on above: Performed By: #### P 8 #### [facility] [address] [place], [place] [address] Chloride [Moles/Vol] 93 mmol/L Low 98-107 [facility] Comment on above: Performed By: #### P 8 #### [facility] [address] [place], [place] [address] Potassium [Moles/Vol] 3.7 mmol/L Normal 3.5-5.1 [facility] Comment on above: Performed By: #### P 8 #### [facility] [address] [place], [place] [address] Sodium [Moles/Vol] 128 mmol/L Low 136-145 [facility] Comment on above: Performed By: #### P 8 #### [facility] [address] [place], [place] [address] CONSULTon 06-08-2019 CONSULT HNO ID: [id number] Author: Pranav Harrison MD Service: Orthopaedic Surgery Author Type: Resident Type: Consults Filed: 06/08/2019 9:57 PM Note Text: ----- Attestation signed by Jayy Vogel at 06/09/2019 6:55 AM Agree with resident assessment and plan. Patient seen 06/02/2019 with improved appearance of left lower extremity amenable to fracture stabilization. Now with cellulitis and blistering of the leg. The high risk nature of his extremity was discussed in detail at the office visit, as predicted, based on length of dislocation and skin compromise secondary to IVDA and underlying peripheral neuropathy with contralateral limb charcot neuropathy. Recommended antibiotics and local wound care. Taking off the splint and allowing the ankle to dislocate (done at facility) only puts further pressure on the medial soft tissues. He is probably no longer a candidate for fracture stabilization, and only a salvage with TTC fusion or amputation will be likely. Patient left AMA, will have office attempt to schedule appropriate follow-up. ----- Consultation Note Reason for Consultation: L ankle blistering s/p bimalleolar ankle fracture dislocation on 05/27/19 Consulting Physician: Dr. Noah Vogel MD Date: June 08, 2019 Time: 9:28 PM History of Present Illness 44 year old male being evaluated today regarding worsening of fracture blisters over the past couple of days. He was seen on 05/27 following a left ankle injury for which he was reduced in the ED and has since followed up as an outpatient with Dr. Vogel on 06/06. He also states that his pain has worsened over the past couple of days. There is non-infectious appearing active drainage coming from his fracture blisters. He states he has been working with PT and also that he has been weight bearing on the LLE despite NWB LLE instructions. He denies fever and chills. He denies trauma to the injury since his last appointment. He has no additional orthopaedic complaints at this time. Review of Systems 10-point ROS negative except as in HPI. History PAST MEDICAL HISTORY Diagnosis Date - Diabetes (HCC) - DKA (diabetic ketoacidosis) (HCC) 08/2014 - Hyperglycemia 05/27/2019 - Hypertension - IVDU (intravenous drug user) 05/27/2019 - Lactose intolerance 07/30/2016 - Left ankle joint deformity 05/27/2019 - Pancreatitis 08/2014 - Tobacco abuse 05/27/2019 PAST SURGICAL HISTORY Procedure Laterality Date - NONE HEPATITIS A(1 of 2 - Risk 2-dose series) due on 1975 DTAP,TDAP,TD(1 - Tdap) due on 1985 ONE PNEUMOVAX PRIOR TO AGE 65 due on 1990 ANNUAL PCP TEAM CHRONIC DISEASE VISIT due on 1992 BP CONTROLLED (<130/80) due on 1992 HEPATITIS B(1 of 3 - Risk 3-dose series) due on 1993 URINE ALBUMIN:CREATININE RATIO due on 11/01/2016 LDL CHOLESTEROL due on 11/01/2016 INFLUENZA(1) due on 03/20/2019 DIABETIC FOOT EXAM due on 04/02/2019 HBA1C due on 08/27/2019 DILATED RETINAL EXAM due on 01/27/2020 A review of the patient's history was completed and is otherwise non-contributory to the patient's presenting condition. Medications cyclobenzaprine (FLEXERIL) 10 mg tablet Take 0.5 tablets by mouth three times daily as needed. acetaminophen (TYLENOL) 325 mg tablet Take 2 tablets by mouth every 6 hours as needed. enoxaparin (LOVENOX) 40 mg/0.4 mL syrg Inject 0.4 mL subcutaneously q 24 HR. insulin glargine (LANTUS SOLOSTAR, BASAGLAR KWIKPEN) 100 unit/mL (3 mL) inpn Inject 20 Units subcutaneously twice daily. insulin lispro (HUMALOG KWIKPEN INSULIN) 100 unit/mL inpn Inject 14 Units subcutaneously three times daily before meals. lisinopril (ZESTRIL, PRINIVIL) 10 mg tablet Take 1 tablet by mouth once daily for [address] (PROTONIX) 40 mg tablet Take 40 mg by mouth once daily. Lancets lancets Use as instructed Insulin Dudley, Disposable, (BD ULTRAFINE III MINI PEN) 31 gauge x 3/16 ndle USE WITH INSULIN PENS 4TIMES DAILY blood sugar diagnostic (ONETOUCH ULTRA TEST) test strip CHECK BLOOD SUGARS 6 TIMES DAILY DULoxetine (CYMBALTA) 30 mg capsule Take 1 capsule by mouth once daily. pregabalin (LYRICA) 150 mg capsule Take 150 mg by mouth as needed (nerve pain). Allergies Patient has no known allergies. Family History Family History Reviewed Including Cardiac Diseases, Psychiatric Diseases, AND Substance Abuse Problem: Hypertension Relation: Mother Age of Onset: (Not Specified) Problem: Diabetes Relation: Mother Age of Onset: (Not Specified) Problem: Stroke Relation: Mother Age of Onset: (Not Specified) Problem: Heart Relation: Mother Age of Onset: (Not Specified) Comment: CHF Problem: Cataract Relation: Mother Age of Onset: (Not Specified) Problem: Hypertension Relation: Father Age of Onset: (Not Specified) Problem: COPD Relation: Father Age of Onset: (Not Specified) Problem: Emphysema Relation: Father Age of Onset: (Not Specified) Social History Employer And Job Title: None on file Years Of Education Completed: Not specified Marital Status: Social History Tobacco Use - Smoking status: Current Every Day Smoker Packs/day: 1.00 Types: Cigarettes - Smokeless tobacco: Never Used Substance Use Topics - Alcohol use: Yes Comment: socially - Drug use: Yes Types: Cocaine, Amphetamines Comment: hist of cocaine and marajuana use, fentanyl Physical Examination Vitals BP 117/74 Pulse (!) 103 Temp 37.8 ?C (100 ?F) Resp 17 Ht 175.3 cm (5' 9) Wt 88 kg (194 lb) SpO2 100% BMI 28.65 kg/m? General AANDO. NAD. Cooperative throughout entire interview. Appropriate mood and affect. Left Lower Extremity Swelling diffusely about the ankle joint Chronic 3x3 cm wound on the medial ankle Fracture blisters extending from the ankle to distal third of the leg, some of which are draining nonpurulent fluid Minimal tenderness to palpation about the ankle. Compartments are soft and compressible Sensation in the [place]/Sa/DP/SP/T distributions decreased at baseline secondary to neuropathy. DP/PT pulses palpable; BCR all digits. Physical examination otherwise non-contributory to consultation. Labs Recent Labs 06/08/192024 NA 128* K 3.7 CHLOR 93* CO2 30 BUN 31* CREAT 0.78 GLUC 174* ANION 9 CA 9.4 WBC 23.44* HB 12.2* HCT 36.6* PLT 223 Imaging Pre and post reduction X-rays of the left ankle were obtained, reviewed, and interpreted. Images show: Pre Reduction XR L Ankle: Bimalleolar fracture with lateral subluxation of the talus Post Reduction XR L Ankle: Improved alignment of talotibial joint Procedure(s) Assessment and Plan Tori Cantor is a 44 year old male L ankle blistering s/p bimalleolar ankle fracture dislocation on 05/27/19 - OK to dc from orthopaedic standpoint - No surgical intervention at this time - Recommend PO doxycycline outpatient - Can f/u with Dr. Vogel in outpatient clinic in 7-10 days - Pain control. - Weight-bearing status: NWB LLE.. - Discussed with Dr. Vogel who agrees with the above recommendations. Ingris Harrison MD Orthopaedic Surgery Pager: [phone] June 08, 2019 [facility] CRPon 06-08-2019 CRP [Mass/Vol] 23.80 mg/dL High 0.00-0.30 [facility] Comment on above: Performed By: #### P 8 #### [facility] [address] [place] [address] Cult Bloodon 06-08-2019 Cult Blood Test performed at [facility] +Gram stain bottle II: Gram positive cocci in clusters +Gram stain bottle I: Gram positive cocci in clusters ORGANISM: *Staphylococcus aureus (ID: 1) cultured in both bottles Oxacillin-susceptible staphylococci are susceptible to other penicillinase-stable penicillins, beta-lactam/beta-lactamas e inhibitor combinations, anti-staphylococcal cephems and carbapenems. Normal [facility] Comment on above: Performed By: #### P 8 #### [facility] [address] [place] [address] Cult Blood Test performed at [facility] +Gram stain bottle I: Gram positive cocci in clusters and Gram positive bacilli +Gram stain bottle II: Gram positive cocci in clusters ORGANISM: *Staphylococcus aureus (ID: 1) cultured in both bottles For sensitivity report see Date/ ORGANISM: *Bacillus species not anthracis (ID: 2) cultured in bottle I [facility] Comment on above: Performed By: #### G FR #### [place] [address] ED NOTEon 06-08-2019 ED NOTE HNO ID: [id number] Author: Bonnie AaronRn) MATT Alarcon Service: Nursing Author Type: Registered Nurse Type: ED Notes Filed: 06/08/2019 9:32 PM Note Text: XRay notified [facility] ED NOTE HNO ID: [id number] Author: Gucci AaronRn) MATT Hernandez Service: Emergency Medicine Author Type: Registered Nurse Type: ED Notes Filed: 06/08/2019 8:32 PM Note Text: Called for Xray Normal [facility] ED NOTE HNO ID: [id number] Author: Gucci AaronRn) Evaristo, RN Service: Emergency Medicine Author Type: Registered Nurse Type: ED Notes Filed: 06/08/2019 8:25 PM Note Text: Blood cultures drawn and sent. Normal [facility] ED NOTE HNO ID: [id number] Author: Gucci AaronRnRosalina Hernandez RN Service: Emergency Medicine Author Type: Registered Nurse Type: ED Notes Filed: 06/08/2019 7:31 PM Note Text: Pt attached to environmental monitoring specialist at this time, BP cuff and pulse ox attached Normal [facility] ED NOTE HNO ID: [id number] Author: Santa AaronRn) MATT Samayoa Service: Emergency Medicine Author Type: Registered Nurse Type: ED Notes Filed: 06/08/2019 6:45 PM Note Text: Pt. Is scheduled to have surgery for a broke left lower extremity. Pt. States developed left leg pain. + open wounds to left foot. Pt. Is a diabetic. Alert and oriented times three. Normal [facility] ED PROV NOTEon 06-08-2019 ED PROV NOTE HNO ID: [id number] Author: Jhoana Pimentel DO Service: Emergency Medicine Author Type: Physician Type: ED Provider Notes Filed: 06/13/2019 4:06 PM Note Text: ED Provider Note Patient Name: Tori Cantor SERVICE DATE: 06/08/19 History Patient presents with: Leg Pain Tori Cantor is a 44 year old male presenting for leg pain. He has history of trimalleolar fracture of left ankle on 05/27/19. Planned surgical repair on 06/10/19. He has been at nursing facility for care. He reports he has had one open wound over medial malleolus since injury, but in last 4 days he has had progressive increased pain, redness, swelling, new wounds of the right leg. He denies fever, but does endorse chills and diaphoresis. He is an insulin dependent DM, having trouble getting blood sugars under control. He reports pain is sharp and stabbing, sometimes burning. It is intermittent. He reports he has baseline neuropathy of bilateral feet, unchanged. He has not been on antibiotics. Had labs drawn at facility that were concerning for infection per patient. He has known charcot joint of right ankle after previous injury. PAST MEDICAL HISTORY Diagnosis Date - Diabetes (HCC) - DKA (diabetic ketoacidosis) ([facility]) 08/2014 - Hyperglycemia 05/27/2019 - Hypertension - IVDU (intravenous drug user) 05/27/2019 - Lactose intolerance 07/30/2016 - Left ankle joint deformity 05/27/2019 - Pancreatitis 08/2014 - Tobacco abuse 05/27/2019 PAST SURGICAL HISTORY Procedure Laterality Date - NONE FAMILY HISTORY Problem Relation Age of Onset - Hypertension Mother - Diabetes Mother - Stroke Mother - Heart Mother CHF - Cataract Mother - Hypertension Father - COPD Father - Emphysema Father Social History Tobacco Use - Smoking status: Current Every Day Smoker Packs/day: 1.00 Types: Cigarettes - Smokeless tobacco: Never Used Substance and Sexual Activity - Alcohol use: Yes Comment: socially - Drug use: Yes Types: Cocaine, Amphetamines Comment: hist of cocaine and marajuana use, fentanyl - Sexual activity: Not on file ALLERGIES No Known Allergies Review of Systems Constitutional: Positive for chills and diaphoresis. Negative for activity change, appetite change, fatigue and fever. HENT: Negative for congestion, rhinorrhea and sore throat. Eyes: Negative for photophobia and visual disturbance. Respiratory: Negative for cough and shortness of breath. Cardiovascular: Negative for chest pain, palpitations and leg swelling. Gastrointestinal: Negative for abdominal pain, diarrhea, nausea and vomiting. Genitourinary: Negative for decreased urine volume and dysuria. Musculoskeletal: Positive for arthralgias, gait problem, joint swelling and myalgias. Negative for back pain and neck pain. Skin: Positive for color change, rash and wound. Negative for pallor. Neurological: Negative for dizziness, seizures, syncope, weakness and headaches. Hematological: Does not bruise/bleed easily. Psychiatric/Behavioral: Negative for agitation. Physical Exam There were no vitals taken for this visit. Physical Exam Vitals signs and nursing note reviewed. Constitutional: General: He is not in acute distress. Appearance: Normal appearance. He is normal weight. He is not ill-appearing or toxic-appearing. HENT: Head: Normocephalic and atraumatic. Right Ear: External ear normal. Nose: Nose normal. No congestion or rhinorrhea. Mouth/Throat: Mouth: Mucous membranes are moist. Pharynx: Oropharynx is clear. No oropharyngeal exudate or posterior oropharyngeal erythema. Eyes: General: Right eye: No discharge. Left eye: No discharge. Extraocular Movements: Extraocular movements intact. Conjunctiva/sclera: Conjunctivae normal. Pupils: Pupils are equal, round, and reactive to light. Neck: Musculoskeletal: Normal range of motion. Cardiovascular: Rate and Rhythm: Regular rhythm. Tachycardia present. Pulses: Normal pulses. Heart sounds: Normal heart sounds. No murmur. Pulmonary: Effort: Pulmonary effort is normal. No respiratory distress. Breath sounds: Normal breath sounds. Abdominal: General: Abdomen is flat. There is no distension. Tenderness: There is no tenderness. Musculoskeletal: Comments: Splint in place on left ankle. Taken down. There is diffuse swelling of left lower extremity below knee. Full ROM of left hip and knee. Known neuropathy, stable per patient. Pulses present. There are several wounds to leg. Medial malleolus with open wound with some serosanguinous drainage present. Several open draining wound on medial calf. One larger blister lesion with blood sanguinous fluid present. Diffuse redness, warmth present on medial calf. Skin: General: Skin is warm and dry. Neurological: General: No focal deficit present. Mental Status: He is alert and oriented to person, place, and time. Diagnostic Testing ED Labs Ordered and Reviewed BASIC METABOLIC PANEL (AK,AV,EU,FV,HL,MARIA TERESA,MM,SP) - Abnormal; Notable for the following components: Result Value Ref Range Sodium 128 (*) 136 - 145 mEq/L Chloride 93 (*) 98 - 107 mEq/L Glucose 174 (*) 70 - 99 mg/dL BUN 31 (*) 7 - 18 mg/dL All other components within normal limits C-REACTIVE PROTEIN (CRP) (AK,AV,EU,FV,HL,MARIA TERESA,MM,SP) - Abnormal; Notable for the following components: CRP 23.80 (*) 0.00 - 0.30 mg/dL All other components within normal limits CBC + AUTO DIFF (AK,AV,EU,FV,HL,MARIA TERESA,MM,SP) - Abnormal; Notable for the following components: WBC 23.44 (*) 4.23 - 9.07 thou/cmm RBC 4.28 (*) 4.63 - 6.08 mil/cmm HGB 12.2 (*) 13.7 - 17.5 g/dL Hematocrit 36.6 (*) 40.1 - 51.0 % MPV 12.4 (*) 8.7 - 12.0 fl Abs. Neut(Anc) 17.98 (*) 1.78 - 5.38 thou/cmm Immature Grans # 1.97 (*) 0.00 - 0.05 thou/cmm Abs. Hutchinson 2.30 (*) 0.30 - 0.82 thou/cmm Abs. Baso 0.19 (*) 0.01 - 0.08 thou/cmm All other components within normal limits SED RATE ERYTHROCYTE (AK,AV,EU,FV,HL,MARIA TERESA,MM,SP) - Abnormal; Notable for the following components: Sed Rate, Westergren 84 (*) 0 - 15 mm/hr All other components within normal limits MDRD GFR BLOOD CULTURE DRAW (AV,EU,FV,HL,MARIA TERESA,MM,SP) BLOOD CULTURE DRAW (AV,EU,FV,HL,MARIA TERESA,MM,SP) XR ANKLE GENERAL 3V AP/LAT/OBL LT Final Result IMPRESSION: Improved although persistent tibiotalar subluxation. Av Specialist: [facility] Transcribe Date/Time: Jun 08 2019 9:43P Dictated by : SPENCER LAU MD This examination was interpreted and the report reviewed and electronically signed by: SPENCER LAU MD on Jun 08 2019 10:27PM EST XR ANKLE GENERAL 3V AP/LAT/OBL LT Final Result IMPRESSION: Increased displacement of the left ankle bimalleolar fracture with worsened tibiotalar malalignment. Soft tissue swelling with increased lower leg subcutaneous emphysema, correlate to exclude infection. [facility] Transcribe Date/Time: Jun 08 2019 8:53P Dictated by : SPENCER LAU MD This examination was interpreted and the report reviewed and electronically signed by: SPENCER LAU MD on Jun 08 2019 8:57PM EST XR TIBIA FIBULA 2V AP/LAT LT Final Result IMPRESSION: Soft tissue swelling in the lower leg along with subcutaneous emphysema. Findings raise concern for gas-forming infection. Bimalleolar fracture with increased displacement of the fracture fragments. Av Specialist: [facility] Transcribe Date/Time: Jun 08 2019 9:04P Dictated by : MARY LANDAVERDE MD This examination was interpreted and the report reviewed and electronically signed by: MARY LANDAVERDE MD on Jun 08 2019 9:10PM EST Procedures ED Course / Clinical Impression Clinical Impressions as of Jun 08 2319 Cellulitis of left lower extremity Type I or II open trimalleolar fracture of left ankle, initial encounter Hyponatremia Hyperglycemia MDM / Disposition / Plan Patient with known trimalleolar fracture of left ankle, awaiting surgical repair, with new wounds over fracture site with drainage, swelling, erythema, concerning for infection. Tachycardic on arrival but not febrile. IV placed, labs obtained. Bolus given. Blood cultures pending. Xrays obtained to evaluate for possible osteomyelitis versus abscess. Showed subcutaneous emphysema concerning for infection and worsening alignment of the known fracture. Zosyn and Vancomycin given. Orthopedics consulted who reduced the fracture and re-splinted. They did not want to perform surgical repair at this time due to active infection. Pain controlled with Percocet. Labs with hyperglycemia, mild hyponatermia, normal anion gap. No sign of DKA. CBC with significant leukocytosis, CRP and ESR significantly elevated. Discussed with patient and recommended admission for IV antibiotics given signs of inflammation and infection over known fracture site. Initially patient accepted, however then he requested discharge AMA. Discussed with patient that he is at risk for progressive infection, sepsis, , loss of the extremity if this is inadequately treated. Patient understood. AMA form signed. Prescription for doxycycline and Levaquin given for coverage of infection. Patient discharged back to nursing facility AMA. The patient was Given a prescription for the following medication(s): Levaquin, doxycycline Patient left against medical advice. Condition at time of disposition: stable SIGNATURE: MD Marilyn Ogden (Res) Sravan Resident 06/08/19 6705 I performed a history and physical examination of the patient and discussed the management with the resident. I reviewed the resident's note and agree with the documented findings and plan of care. Jhoana Pimentel DO 06/13/19 1606 Normal [facility] Hemogram/Diffon 06-08-2019 Abs Immature Grans 1.97 thou/cmm High 0.00-0.05 [facility] Comment on above: Performed By: #### P 8 #### [place] [address] Abs Neut (ANC) 17.98 thou/cmm High 1.78-5.38 [facility] Comment on above: Performed By: #### P 8 #### [place] [address] Abs. Baso 0.19 thou/cmm High 0.01-0.08 [facility] Comment on above: Result Comment: Smea r scanned; tech agrees with automated differential Performed By: #### P 8 #### [facility] [address] [place] [address] Abs. Hutchinson 2.30 thou/cmm High 0.30-0.82 [facility] Comment on above: Performed By: #### P 8 #### [facility] [address] [place], [place] [address] Basophils/100 WBC (Bld) 0.8 % Normal [facility] Comment on above: Performed By: #### P 8 #### [facility] [address] [place], [place] [address] Eosinophils (Bld) [#/Vol] 0.12 thou/cmm Normal 0.04-0.54 [facility] Comment on above: Performed By: #### P 8 #### [facility] [address] [place], [place] [address] Eosinophils/100 WBC (Bld) 0.5 % Normal [facility] Comment on above: Performed By: #### P 8 #### [facility] [address] [place], [place] [address] Immature Grans 8.40 % Normal [facility] Comment on above: Performed By: #### P 8 #### [address] [address] Lymphocytes (Bld) [#/Vol] 0.89 thou/cmm Normal 0.84-2.85 [facility] Comment on above: Performed By: #### P 8 #### [facility] [address] [place], [place] [address] Lymphocytes/100 WBC (Bld) 3.8 % Normal [facility] Comment on above: Performed By: #### P 8 #### [facility] [address] [place], [place] [address] Monocytes/100 WBC (Bld) 9.8 % Normal [facility] Comment on above: Performed By: #### P 8 #### [facility] [address] [place] [address] Seg Neutrophil 76.7 % Normal [facility] Comment on above: Performed By: #### P 8 #### [facility] [address] [place] [address] Erythrocyte distribution width (RBC) [Ratio] 12.7 % Normal 11.6-14.4 [facility] Comment on above: Performed By: #### P 8 #### [facility] [address] [place] [address] Hematocrit (Bld) [Volume fraction] 36.6 % Low 40.1-51.0 [facility] Comment on above: Performed By: #### P 8 #### [facility] [address] [place] [address] Hemoglobin (Bld) [Mass/Vol] 12.2 g/dL Low 13.7-17.5 [facility] Comment on above: Performed By: #### P 8 #### [facility] [address] [place] [address] MCH (RBC) [Entitic mass] 28.5 pg Normal 25.7-32.2 [facility] Comment on above: Performed By: #### P 8 #### [facility] [address] [place] [address] MCHC (RBC) [Mass/Vol] 33.3 % Normal 32.3-36.5 [facility] Comment on above: Performed By: #### P 8 #### [facility] [address] [place] [address] MCV (RBC) [Entitic vol] 85.5 fL Normal 83.2-95.6 [facility] Comment on above: Performed By: #### P 8 #### [facility] [address] [place] [address] Platelet mean volume (Bld) [Entitic vol] 12.4 fL High 8.7-12.0 [facility] Comment on above: Performed By: #### P 8 #### [place] [address] Platelets (Bld) [#/Vol] 223 thou/cmm Normal 141-365 [facility] Comment on above: Performed By: #### P 8 #### [facility] [address] [place], [place] [address] RBC (Bld) [#/Vol] 4.28 mil/cmm Low 4.63-6.08 [facility] Comment on above: Performed By: #### P 8 #### [facility] [address] [place], [place] [address] RDW SD 39.6 fl Normal 36.1-45.8 [facility] Comment on above: Performed By: #### P 8 #### [facility] [address] [place], [place] [address] WBC (Bld) [#/Vol] 23.44 thou/cmm High 4.23-9.07 [facility] Comment on above: Performed By: #### P 8 #### [facility] [address] [place] [address] MDRD GFRon 06-08-2019 GFR/1.73 sq M predicted among non-blacks MDRD (S/P/Bld) [Vol rate/Area] mL/min/{1.73_m2} Normal >60mL/min/1. 73m2 [facility] Comment on above: Result Comment: If t he patient is , multiply the result by 1.210. Performed By: #### P 8 #### [facility] [address] [place], [place] [address] Sed Rateon 06-08-2019 Sed Rate 84 mm/hr High 0-15 [facility] Comment on above: Performed By: #### P 8 #### [facility] [address] [place] [id number] XR ANKLE 3V AP/LAT/OBL LTon 06-08-2019 XR ANKLE 3V AP/LAT/OBL LT * * *Final Report* * * DATE OF EXAM: Jun 08 2019 9:40PM [id number] - XR ANKLE 3V AP/LAT/OBL LT / PROCEDURE REASON: Post-reduction assessment * * * * Physician Interpretation * * * * EXAM: XR ANKLE 3V AP/LAT/OBL LT HISTORY: Post-reduction assessment COMPARISON: Same date FINDINGS: Redemonstrated displaced medial lateral malleolar fractures. Improved tibiotalar alignment although with persistent medial mortise widening. IMPRESSION: Improved although persistent tibiotalar subluxation. Av Specialist: [facility] Transcribe Date/Time: Jun 08 2019 9:43P Dictated by : SPENCER LAU MD This examination was interpreted and the report reviewed and electronically signed by: SPENCER LAU MD on Jun 08 2019 10:27PM EST Normal [facility] XR ANKLE 3V AP/LAT/OBL LT * * *Final Report* * * DATE OF EXAM: Jun 08 2019 8:45PM [id number] - XR ANKLE 3V AP/LAT/OBL LT / PROCEDURE REASON: Fracture, ankle * * * * Physician Interpretation * * * * EXAM: XR ANKLE 3V AP/LAT/OBL LT HISTORY: Fracture, ankle COMPARISON: 05/27/2019 FINDINGS: Redemonstrated displaced bilateral malleolar fractures including distal fibular Israel B fracture in transverse avulsion medial malleolar fracture. No clear posterior malleable fracture identified currently. Increased widening of the medial ankle mortise. Increased soft tissue swelling with subcutaneous edema the lower leg and ankle. IMPRESSION: Increased displacement of the left ankle bimalleolar fracture with worsened tibiotalar malalignment. Soft tissue swelling with increased lower leg subcutaneous emphysema, correlate to exclude infection. Av Specialist: [facility] Transcribe Date/Time: Jun 08 2019 8:53P Dictated by : SPENCER LAU MD This examination was interpreted and the report reviewed and electronically signed by: SPENCER LAU MD on Jun 08 2019 8:57PM EST Normal [facility] XR TIBIA FIBULA 2V AP/LAT LT on 06-08-2019 XR TIBIA FIBULA 2V AP/LAT LT * * *Final Report* * * DATE OF EXAM: Jun 08 2019 8:45PM [id number] - XR TIBIA FIBULA 2V AP/LAT LT / PROCEDURE REASON: Fracture, tib/fib * * * * Physician Interpretation * * * * EXAM TITLE: LEFT TIBIA AND FIBULA DATE: 06/08/2019 COMPARISON: Left ankle 06/08/2019, left ankle 05/27/2019 CLINICAL INDICATION/HISTORY: Fracture TECHNIQUE: AP and lateral views of the tibia and fibula appear FINDINGS: There is casting material overlying the tibia and fibula. The medial and lateral malleoli are fractured and are better seen on the x-ray of the ankle. These appear to be more displaced than on the prior x-ray of the ankle from 05/27/2018. There is widening of the medial ankle mortise. There is soft tissue swelling in the lower leg with subcutaneous emphysema noted. IMPRESSION: Soft tissue swelling in the lower leg along with subcutaneous emphysema. Findings raise concern for gas-forming infection. Bimalleolar fracture with increased displacement of the fracture fragments. Av Specialist: [facility] Transcribe Date/Time: Jun 08 2019 9:04P Dictated by : MARY LANDAVERDE MD This examination was interpreted and the report reviewed and electronically signed by: MARY LANDAVERDE MD on Jun 08 2019 9:10PM [facility] 06-02-2019 [facility] Office Visit (AGPOB1 ) ----- TORI CANTOR ([id number]) 1975 M Date Time Provider Department 06/02/19 9:45 AM JAYY VOGEL [id number] During your visit today, we recorded the following information about you: Respiration Weight Height 16/minute 79.4 kg 1.797 m Jayy Vogel MD 06/06/2019 12:35 PM Signed REVIEW OF SYSTEMS: GENERAL: Well developed, well nourished. No acute distress PAIN: Pain left ankle CARDIOVASCULAR: Negative for chest pain, leg swelling and palpations. MSK: joint pain left ankle SKIN: Negative for lesions, rash, itching, metal sensitivity NEURO: Negative for seizure, trauma, numbness/tingling of extremities. ENDOCRINE: IDDM HEMATOLOGY: Negative for excessive bleeding, clots, bleeding disorders. ORTHOPAEDIC OFFICE NOTE CHIEF COMPLAINT: left ankle injury HISTORY OF PRESENT ILLNESS: Tori Cantor is a 44 year old male who presents for reevaluation of a left trimalleolar ankle fracture dislocation sustained around 05/25-05/26/2019 during a presumed twisting mechanism. The patient used IV fentanyl at that time, and has poor recall to events. He was seen in the emergency department 05/27/2019 where clinical examination and imaging studies demonstrated the bony injury, in addition to large medial ulceration of the skin preventing acute surgical stabilization. He was reduced and placed into a posterior splint. Has been staying at a nursing facility awaiting surgical fixation as he is unsafe to return to home (stays in a basement). Notes continued pain in the ankle with underlying peripheral neuropathy from diabetes. History of charcot neuropathy of the contralateral foot. Indicates he has remained non-weight bearing. Reviewed nursing note and current pain scale. 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 - Pancreatitis 08/2014 - Tobacco abuse 05/27/2019 PAST SURGICAL HISTORY Procedure Laterality Date - NONE FAMILY HISTORY Problem Relation Age of Onset - Hypertension Mother - Diabetes Mother - Stroke Mother - Heart Mother CHF - Cataract Mother - Hypertension Father - COPD Father - Emphysema Father Social History Tobacco Use - Smoking status: Current Every Day Smoker Packs/day: 1.00 Types: Cigarettes - Smokeless tobacco: Never Used Substance Use Topics - Alcohol use: Yes Comment: socially - Drug use: Yes Types: Cocaine, Amphetamines Comment: hist of cocaine and marajuana use, fentanyl MEDICATIONS: Current Outpatient Medications Medication Sig - cyclobenzaprine (FLEXERIL) 10 mg tablet Take 0.5 tablets by mouth three times daily as needed. - acetaminophen (TYLENOL) 325 mg tablet Take 2 tablets by mouth every 6 hours as needed. - enoxaparin (LOVENOX) 40 mg/0.4 mL syrg Inject 0.4 mL subcutaneously q 24 HR. - insulin glargine (LANTUS SOLOSTAR, BASAGLAR KWIKPEN) 100 unit/mL (3 mL) inpn Inject 20 Units subcutaneously twice daily. - insulin lispro (HUMALOG KWIKPEN INSULIN) 100 unit/mL inpn Inject 14 Units subcutaneously three times daily before meals. - lisinopril (ZESTRIL, PRINIVIL) 10 mg tablet Take 1 tablet by mouth once daily for 15 days. - pantoprazole DR (PROTONIX) 40 mg tablet Take 40 mg by mouth once daily. - Lancets lancets Use as instructed - Insulin Dudley, Disposable, (BD ULTRAFINE III MINI PEN) 31 gauge x 3/16 ndle USE WITH INSULIN PENS 4TIMES DAILY - blood sugar diagnostic (play140TOUCH ULTRA TEST) test strip CHECK BLOOD SUGARS 6 TIMES DAILY - DULoxetine (CYMBALTA) 30 mg capsule Take 1 capsule by mouth once daily. (Patient taking differently: Take 60 mg by mouth twice daily. ) - pregabalin (LYRICA) 150 mg capsule Take 150 mg by mouth as needed (nerve pain). No current facility-administered medications for this visit. ALLERGIES: ALLERGIES No Known Allergies PHYSICAL EXAMINATION: Resp 16 Ht 5' 10.75 (1.80m) Wt 175 lb (79.4kg) BMI 24.58 kg/(m2). General Appearance: Well appearing, alert, in no acute distress, well-hydrated, well nourished. Answers questions appropriately. Skin: Skin color, texture, turgor normal, no suspicious rashes or lesions. Extremities: Left ankle with 4 cm x 4 cm ulcer and skin at risk over medial ankle. Global edema. No fracture blisters. Left leg and foot compartments soft and compressible. Does not range ankle to maintain reduction. Scattered ecchymosis with general appearance of chronic muscle atrophy of the leg. Peripheral Pulses: Normal. Neurologic: Intact light touch sensation that is diminished in a stocking distribution left lower extremity, symmetric to right side. IMAGES: No results found for this or any previous visit (from the past 36 hour(s)). Reviewed injury and reduction films in detail with the patient 05/27/2019. ASSESSMENT AND PLAN: 1. Closed fracture of left ankle with routine healing, subsequent encounter - ICD9: V54.19, ICD10: S82.892D Functional Plan: Non-weight bearing left lower extremity in splint. Assistance Devices: Reapplied well-padded short leg splint with adaptic dressing over ulcer to protect skin. Physical/Occupational Therapy: None currently. Wound Care: As above. Pain Control: No change in pain regimen recommended this office visit. High risk patient given narcotic drug abuse history. Fragility Fracture: Will review after surgical stabilization. Additional: Reviewed injury in detail with patient including recommendation for operative stabilization. Goal will be to minimize incisions, potentially only fixing the lateral side. High risk for infection and progression of charcot neuropathy based on contralateral side. High risk for future amputation from this injury and underlying medical comorbidities. Patient expressed understanding. Office to schedule future procedure giving more time for medial ulcer resolution. No follow-ups on file. MD Jayy Vázquez MD 06/02/2019 10:34 AM Signed Office to schedule surgery. Referring Provider: BYRON MUNOZ [[id number]] Allergies As of Date: 06/02/2019 (No Known Allergies) Date Reviewed: 06/02/2019 Reviewed by: Esme ([facility]) Tong - Fully Assessed Reason for Visit: FU left ankle [Other] Primary Visit Diagnosis:Closed fracture of left ankle with routine healing, subsequent encounter [A72.304F] Order(s):cyclobenzaprine (FLEXERIL) 10 mg tabletTake 0.5 tablets by mouth three times daily as needed.Disp: 20 tabletRfl: 0 Prescriptions as of 06/02/2019 Sig: CYCLOBENZAPRINE 10 MG TABLET Take 0.5 tablets by mouth thr* OXYCODONE-ACETAMINOPHEN 5 MG-* Take 1 tablet by mouth every * ACETAMINOPHEN 325 MG TABLET Take 2 tablets by mouth every* ENOXAPARIN 40 MG/0.4 ML SUBCU* Inject 0.4 mL subcutaneously * INSULIN GLARGINE (U-100) 100 * Inject 20 Units subcutaneousl* INSULIN LISPRO (U-100) 100 UN* Inject 14 Units subcutaneousl* LISINOPRIL 10 MG TABLET Take 1 tablet by mouth once d* PANTOPRAZOLE 40 MG TABLET,DEL* Take 40 mg by mouth once nohemy* LANCETS Use as instructed PEN NEEDLE, DIABETIC 31 GAUGE* USE WITH INSULIN PENS 4TIMES * BLOOD SUGAR DIAGNOSTIC STRIPS CHECK BLOOD SUGARS 6 TIMES DA* DULOXETINE 30 MG CAPSULE,MIRIAM* Take 1 capsule by mouth once * Patient taking differently: Take 60 mg by mouth twice juan pablo* PREGABALIN 150 MG CAPSULE Take 150 mg by mouth as neede* Problem List As Of Date 06/02/2019 Noted Resolved Uncontrolled type 1 diabetes mellitus mild nonp*11/23/1985 Hypertension [I10] 11/23/2009 Abdominal pain, right lower quadrant [R10.31] 11/23/2009 01/25/2016 Abdominal pain, left lower quadrant [R10.32] 11/23/2009 01/25/2016 GERD (gastroesophageal reflux disease) [K21.9] 01/25/2016 Microalbuminuria [R80.9] 01/25/2016 History of diabetic gastroparesis [Z86.39] 01/25/2016 Diabetic polyneuropathy associated with type 1 *01/25/2016 More... Depression with anxiety [F41.8] 01/25/2016 Lactose intolerance [E73.9] 07/30/2016 02/14/2017 Charcot's joint of right foot [M14.671] 11/11/2016 Obesity [E66.9] 02/11/2017 04/05/2018 Hyperlipidemia [E78.5] 02/14/2017 Hep C w/o coma, chronic (HCC) [B18.2] 09/29/2018 More... Moderate episode of recurrent major depressive *09/02/2018 09/29/2018 History of drug abuse in remission [F19.11] 09/29/2018 IVDU (intravenous drug user) [F19.90] 05/27/2019 Tobacco abuse [Z72.0] 05/27/2019 Left ankle joint deformity [M21.962] 05/27/2019 Hyperglycemia [R73.9] 05/27/2019 Nicotine use disorder, F17.2 [F17.200] 05/31/2019 Closed fracture of left ankle [S82.892A] 06/02/2019 Other instructions from your clinician: Office to schedule surgery. Prescriptions ordered this encounter Disp Refills Start End CYCLOBENZAPRINE 10 MG TABLET 20 t* 0 06/02/2019 Class: Print RX Route: ORAL Sig: Take 0.5 tablets by mouth three times daily as needed. Level of Service: EST PATIENT VISIT LEVEL 3 [52515] Encounter Status:Closed by JAYY VOGEL MD on 06/06/19 [facility] PROGRESSon 06-02-2019 PROGRESS HNO ID: [id number] Author: Jayy Vogel Service: ? Author Type: Physician Type: Progress Notes Filed: 06/06/2019 12:35 PM Note Text: REVIEW OF SYSTEMS: GENERAL: Well developed, well nourished. No acute distress PAIN: Pain left ankle CARDIOVASCULAR: Negative for chest pain, leg swelling and palpations. MSK: joint pain left ankle SKIN: Negative for lesions, rash, itching, metal sensitivity NEURO: Negative for seizure, trauma, numbness/tingling of extremities. ENDOCRINE: IDDM HEMATOLOGY: Negative for excessive bleeding, clots, bleeding disorders. ORTHOPAEDIC OFFICE NOTE CHIEF COMPLAINT: left ankle injury HISTORY OF PRESENT ILLNESS: Tori Cantor is a 44 year old male who presents for reevaluation of a left trimalleolar ankle fracture dislocation sustained around 05/25-05/26/2019 during a presumed twisting mechanism. The patient used IV fentanyl at that time, and has poor recall to events. He was seen in the emergency department 05/27/2019 where clinical examination and imaging studies demonstrated the bony injury, in addition to large medial ulceration of the skin preventing acute surgical stabilization. He was reduced and placed into a posterior splint. Has been staying at a nursing facility awaiting surgical fixation as he is unsafe to return to home (stays in a basement). Notes continued pain in the ankle with underlying peripheral neuropathy from diabetes. History of charcot neuropathy of the contralateral foot. Indicates he has remained non-weight bearing. Reviewed nursing note and current pain scale. 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 - Pancreatitis 08/2014 - Tobacco abuse 05/27/2019 PAST SURGICAL HISTORY Procedure Laterality Date - NONE FAMILY HISTORY Problem Relation Age of Onset - Hypertension Mother - Diabetes Mother - Stroke Mother - Heart Mother CHF - Cataract Mother - Hypertension Father - COPD Father - Emphysema Father Social History Tobacco Use - Smoking status: Current Every Day Smoker Packs/day: 1.00 Types: Cigarettes - Smokeless tobacco: Never Used Substance Use Topics - Alcohol use: Yes Comment: socially - Drug use: Yes Types: Cocaine, Amphetamines Comment: hist of cocaine and marajuana use, fentanyl MEDICATIONS: Current Outpatient Medications Medication Sig - cyclobenzaprine (FLEXERIL) 10 mg tablet Take 0.5 tablets by mouth three times daily as needed. - acetaminophen (TYLENOL) 325 mg tablet Take 2 tablets by mouth every 6 hours as needed. - enoxaparin (LOVENOX) 40 mg/0.4 mL syrg Inject 0.4 mL subcutaneously q 24 HR. - insulin glargine (LANTUS SOLOSTAR, BASAGLAR KWIKPEN) 100 unit/mL (3 mL) inpn Inject 20 Units subcutaneously twice daily. - insulin lispro (HUMALOG KWIKPEN INSULIN) 100 unit/mL inpn Inject 14 Units subcutaneously three times daily before meals. - lisinopril (ZESTRIL, PRINIVIL) 10 mg tablet Take 1 tablet by mouth once daily for 15 days. - pantoprazole DR (PROTONIX) 40 mg tablet Take 40 mg by mouth once daily. - Lancets lancets Use as instructed - Insulin Dudley, Disposable, (BD ULTRAFINE III MINI PEN) 31 gauge x 3/16 ndle USE WITH INSULIN PENS 4TIMES DAILY - blood sugar diagnostic ([employer] ULTRA TEST) test strip CHECK BLOOD SUGARS 6 TIMES DAILY - DULoxetine (CYMBALTA) 30 mg capsule Take 1 capsule by mouth once daily. (Patient taking differently: Take 60 mg by mouth twice daily. ) - pregabalin (LYRICA) 150 mg capsule Take 150 mg by mouth as needed (nerve pain). No current facility-administered medications for this visit. ALLERGIES: ALLERGIES No Known Allergies PHYSICAL EXAMINATION: Resp 16 Ht 5' 10.75 (1.80m) Wt 175 lb (79.4kg) BMI 24.58 kg/(m2). General Appearance: Well appearing, alert, in no acute distress, well-hydrated, well nourished. Answers questions appropriately. Skin: Skin color, texture, turgor normal, no suspicious rashes or lesions. Extremities: Left ankle with 4 cm x 4 cm ulcer and skin at risk over medial ankle. Global edema. No fracture blisters. Left leg and foot compartments soft and compressible. Does not range ankle to maintain reduction. Scattered ecchymosis with general appearance of chronic muscle atrophy of the leg. Peripheral Pulses: Normal. Neurologic: Intact light touch sensation that is diminished in a stocking distribution left lower extremity, symmetric to right side. IMAGES: No results found for this or any previous visit (from the past 36 hour(s)). Reviewed injury and reduction films in detail with the patient 05/27/2019. ASSESSMENT AND PLAN: 1. Closed fracture of left ankle with routine healing, subsequent encounter - ICD9: V54.19, ICD10: S82.892D Functional Plan: Non-weight bearing left lower extremity in splint. Assistance Devices: Reapplied well-padded short leg splint with adaptic dressing over ulcer to protect skin. Physical/Occupational Therapy: None currently. Wound Care: As above. Pain Control: No change in pain regimen recommended this office visit. High risk patient given narcotic drug abuse history. Fragility Fracture: Will review after surgical stabilization. Additional: Reviewed injury in detail with patient including recommendation for operative stabilization. Goal will be to minimize incisions, potentially only fixing the lateral side. High risk for infection and progression of charcot neuropathy based on contralateral side. High risk for future amputation from this injury and underlying medical comorbidities. Patient expressed understanding. Office to schedule future procedure giving more time for medial ulcer resolution. No follow-ups on file. Jayy Vogel MD [facility] CASE MANAGEMon 05-31-2019 CASE MANAGEM HNO ID: [id number] Author: Destinee (Rn) MATT Carrasco Service: ? Author Type: Registered Nurse Type: Care Mgt Progress Note Filed: 05/31/2019 9:31 AM Note Text: CARE MANAGEMENT DISCHARGE NOTE SERVICE DATE: 05/31/2019 SERVICE TIME: 9:28 AM LOS: 0 days Admission Date: 05/27/2019 DISCHARGE ARRANGEMENT (list agency and phone number) alf facility: Was an expedited discharge program used? No Provider: [facility] CAREGIVER ASSESSMENT: Caregiver is ready, willing and able to meet the patient's needs as recommended by the inter-professional team? Yes Patient's transition needs and plan for meeting these needs: SNF for PT, OT, SN Does the patient have an acute stroke diagnosis, or has the patient had a stroke during this admission? No HANDOFF COMMUNICATION: RN to call report to facility [facility] aware of DC and transport time TRANSPORTATION ARRANGEMENTS: Mode of Transportation: [employer] [employer] Agency and Phone #: [facility] ( [facility] ) [phone] / [phone]. Date of Trip: 05/31/19 Type of Service: BLS Non-emergency Is Patient Medicaid Pending: No Discussion of financial coverage occurred with Patient . Rn Social Services Location: [facility] Destination: [facility] Financial Care Management Responsibility: None Estimated Charge: n/a Approving Mechanical Process Engineer: n/a ADDITIONAL CONTACT RESOURCES: n/a Discharging to [facility] for PT, OT, SN. [facility] transporting patient via WC. historic sites supervisor time is 12PM. Patient is aware. SIGNATURE: Marjorie Carrasco RN PATIENT NAME: Tori Cantor DATE: May 31, 2019 TIME: 9:28 AM PAGER/CONTACT #: [phone] [facility] Glucose Meteron 05-31-2019 Glucose [Mass/Vol] 244 mg/dL High 70-99 [facility] Comment on above: Result Comment: RN N OTIFIED Performed By: #### G LMET #### [facility] [address] [address] NURSING PROGon 05-31-2019 NURSING PROG HNO ID: [id number] Author: Emelia (Rn) MATT Diaz Service: Nursing Author Type: Registered Nurse Type: Nursing Progress Note Filed: 05/31/2019 10:43 AM Note Text: Report given to M[facility]ica at [facility] PROGRESSon 05-31-2019 PROGRESS HNO ID: [id number] Author: Marie Sahni Service: Hospital Medicine Author Type: Physician Type: Progress Notes Filed: 05/31/2019 7:56 AM Note Text: DEPARTMENT OF HOSPITAL MEDICINE PROGRESS NOTE SERVICE DATE: 05/30/2019 SERVICE TIME: 7:53 AM Hospital Medicine/Primary Attending: Marie Sahni MD NIGHT AND WEEKEND COVERAGE: After 7pm please page [phone] CHIEF COMPLAINT: Left ankle fx SUBJECTIVE: Pt was not transported as scheduled. No new complaints. No chest pain, SOB, N/V OBJECTIVE: PHYSICAL EXAM: BP 132/82 Pulse 78 Temp (Src) 98.4 (Oral) Resp 16 Ht 5' 9 (1.75m) Wt 185 lb 10 oz (84.2kg) SpO2 95% BMI 27.40 kg/(m2). O2 Therapy: Room Air General - AANDOx3, NAD, Calm CV - RRR S1 S2, No M/R/G RESP - CTA B/L No wheezes, ronchi, rales ABD - soft, NT, ND +BS EXT - no gross joint deformity, no clubbing, cyanosis, edema MEDICATIONS: Current Facility-Administered Medications Medication Dose Route Frequency - aluminum-magnesium hydroxide-simethicone 200-200-20 mg/5 mL 30 mL (MAALOX,MYLANTA,MAG-AL PLUS) 30 mL ORAL DAILY PRN - ondansetron 4 mg tab(s) (ZOFRAN) 4 mg ORAL q 6 H PRN Or - ondansetron (PF) 4 mg injection (ZOFRAN) 4 mg INTRAVENOUS q 6 H PRN - docusate sodium 100 mg cap(s) (COLACE) 100 mg ORAL BID PRN - acetaminophen 650 mg tab(s) (TYLENOL) 650 mg ORAL q 6 H PRN - morphine 2-4 mg injection 2-4 mg INTRAVENOUS q 4 H PRN - pantoprazole DR 40 mg tab(s) (PROTONIX) 40 mg ORAL DAILY (6 AM) - lisinopril 10 mg tab(s) (ZESTRIL, PRINIVIL) 10 mg ORAL DAILY - insulin lispro 14 Units pen (rapid acting) (HumaLOG KWIKPEN) 14 Units SUBCUTANEOUS TID before MEALS - dextrose 40 % 15 g 15 g ORAL PRN Or - glucagon 1 mg injection (GLUCAGEN) 1 mg INTRAMUSCULAR PRN Or - dextrose 50 % 12.5 g injection 12.5 g INTRAVENOUS PRN - insulin lispro pen (rapid acting) (HumaLOG KWIKPEN) SUBCUTANEOUS AT BEDTIME - insulin glargine 20 Units pen (long acting) (LANTUS SOLOSTAR, BASAGLAR KWIKPEN) 20 Units SUBCUTANEOUS BID - DULoxetine 60 mg cap(s) (CYMBALTA) 60 mg ORAL BID - enoxaparin 40 mg injection (LOVENOX) 40 mg SUBCUTANEOUS q 24 HR DATA: Diagnostic tests reviewed for today's visit: Assessment/Plan Left ankle joint deformity/fracture??POA: Yes ?Assessment AND?Plan: Patient will go to rehab due inability to ambulate stairs in home. Follow up with ortho as outpatient. ? Hyperglycemia with DM1?POA: Yes ?Assessment AND?Plan: Sugars are reasonably well controlled. ? H/O?Charcot's joint of right foot POA: Yes ? IVDU (intravenous drug user) POA: Yes ?Assessment AND?Plan: c/s SW, check urine drug screen.??Will probably need pain management postoperatively. ? Hypertension POA: Yes ?Assessment AND?Plan: stable, c/w home meds ? ??History of diabetic gastroparesis POA: Yes ? ??Tobacco abuse POA: Yes ?Assessment AND?Plan: cessation education given VTE Prophylaxis: Lovenox 40mg Sub Q Daily Disposition: Extended Care Facility Plan of care discussed with: Patient SIGNATURE: Marie Sahni MD PATIENT NAME: Tori Cantor DATE: May 30, 2019 TIME: 7:53 AM PAGER/CONTACT #: [phone] [facility] CASE MANAGEMon 05-30-2019 CASE MANAGEM HNO ID: [id number] Author: Destinee (Rn) MATT Carrasco Service: ? Author Type: Registered Nurse Type: Care Mgt Progress Note Filed: 05/30/2019 4:56 PM Note Text: CARE MANAGEMENT PROGRESS NOTE SERVICE DATE: 05/30/2019 SERVICE TIME: 4:18 PM LOS: 0 days Needs Prior to Discharge: Precertification;Discharg e Transportation Pre cert remains pending for patient to admit to [facility]. Hopeful that patient will be approved tomorrow. Addendum @ 4:22PM: Pre cert obtained and patient approved for admission to [facility]. Dr. Sahni notified. Patient needing WC transport. Earliest chart picker time is 11pm. Plan to DC patient tomorrow. Transport scheduled for 12PM. SIGNATURE: Marjorie Carrasco RN PATIENT NAME: Tori Cantor DATE: May 30, 2019 TIME: 4:18 PM PAGER/CONTACT #: [phone] [facility] NURSING PROGon 05-30-2019 NURSING PROG HNO ID: [id number] Author: Marian AaronRn) MATT Torrez Service: Nursing Author Type: Registered Nurse Type: Nursing Progress Note Filed: 05/30/2019 6:55 AM Note Text: Post Fall Assessment Tori Cantor [id number] Witnessed: No How did fall occur: Getting out of bed/chair Location: Patient room Contributing factors: lost balance Brief factual description: Pt states he was getting up from bed to use urinal and his foot slipped out from under him. Pt states he did not hit his head and has no pain at this time. Pt c/o baseline neuropathy in BLE. Pt assisted back to bed x2 RNs call light within reach. Nursing supervisor engraving and sound notified at this time. No new orders received. (*Document vital signs, neuro checks, blood sugars in the appropriate flow sheet.) Initial Physical Assessment Injury: No Patient hit head: No Immediate actions taken: Assisted back to bed / chair Name of LIP notified: Destinee Navarro Notify family as appropriate: No answer Ingris Kristie Post fall interventions: Bed Alarm in use, Fall Huddle Conducted, Frequent Observation, Patient/Family Education, Apply a Yellow Wrist Band, Apply [place] Risk Symbol to the Door and My Safety Plan Updated, This note was completed by:Marian Torrez RN [facility] PLAN OF CAREon 05-30-2019 PLAN OF CARE HNO ID: [id number] Author: Yazmin Cedeño ([employer]) Service: ? Author Type: ? Type: Plan of Care Filed: 05/30/2019 5:21 PM Note Text: TRESTLE MAINTERNANCE LABORER BEDSIDE DELIVERY SURVEY 1. Patient to use [facility] Bedside Delivery - N/A Insurance Information as follows: 2. Insurance card on file - N/A 3. Credit card for payment - N/A Patient DC to SNF/acute rehab/inpatient facility, therefore not eligible for pharmacy bedside delivery service. Yazmin Cedeño (Remedial Project Manager) [phone] [facility] PROGRESSon 05-30-2019 PROGRESS HNO ID: [id number] Author: Marie Sahni Service: Hospital Medicine Author Type: Physician Type: Progress Notes Filed: 05/30/2019 8:57 AM Note Text: DEPARTMENT OF HOSPITAL MEDICINE PROGRESS NOTE SERVICE DATE: 05/30/2019 SERVICE TIME: 8:53 AM Hospital Medicine/Primary Attending: Marie Sahni MD NIGHT AND WEEKEND COVERAGE: After 7pm please page [phone] CHIEF COMPLAINT: Left ankle fx SUBJECTIVE: She apparently slid to the floor earlier. He did not injure himself. He was standing up to urinate and did not have a sock with veterinary surgery technologist on. He slid to the floor and did not injure himself. He does not complaining of any new pain. His ankle pain is about the same on the left as it was yesterday. Still awaiting placement. OBJECTIVE: PHYSICAL EXAM: BP 163/103 Pulse 94 Temp (Src) 97.7 (Oral) Resp 18 Ht 5' 9 (1.75m) Wt 185 lb 10 oz (84.2kg) SpO2 98% BMI 27.40 kg/(m2). O2 Therapy: Room Air General - AANDOx3, NAD, Calm CV - RRR S1 S2, No M/R/G RESP - CTA B/L No wheezes, ronchi, rales ABD - soft, NT, ND +BS EXT - no gross joint deformity, no clubbing, cyanosis, edema MEDICATIONS: Current Facility-Administered Medications Medication Dose Route Frequency - aluminum-magnesium hydroxide-simethicone 200-200-20 mg/5 mL 30 mL (MAALOX,MYLANTA,MAG-AL PLUS) 30 mL ORAL DAILY PRN - ondansetron 4 mg tab(s) (ZOFRAN) 4 mg ORAL q 6 H PRN Or - ondansetron (PF) 4 mg injection (ZOFRAN) 4 mg INTRAVENOUS q 6 H PRN - docusate sodium 100 mg cap(s) (COLACE) 100 mg ORAL BID PRN - acetaminophen 650 mg tab(s) (TYLENOL) 650 mg ORAL q 6 H PRN - morphine 2-4 mg injection 2-4 mg INTRAVENOUS q 4 H PRN - pantoprazole DR 40 mg tab(s) (PROTONIX) 40 mg ORAL DAILY (6 AM) - lisinopril 10 mg tab(s) (ZESTRIL, PRINIVIL) 10 mg ORAL DAILY - insulin lispro 14 Units pen (rapid acting) (HumaLOG KWIKPEN) 14 Units SUBCUTANEOUS TID before MEALS - dextrose 40 % 15 g 15 g ORAL PRN Or - glucagon 1 mg injection (GLUCAGEN) 1 mg INTRAMUSCULAR PRN Or - dextrose 50 % 12.5 g injection 12.5 g INTRAVENOUS PRN - insulin lispro pen (rapid acting) (HumaLOG KWIKPEN) SUBCUTANEOUS AT BEDTIME - insulin glargine 20 Units pen (long acting) (LANTUS SOLOSTAR, BASAGLAR KWIKPEN) 20 Units SUBCUTANEOUS BID - DULoxetine 60 mg cap(s) (CYMBALTA) 60 mg ORAL BID - enoxaparin 40 mg injection (LOVENOX) 40 mg SUBCUTANEOUS q 24 HR DATA: Diagnostic tests reviewed for today's visit: Assessment/Plan Left ankle joint deformity/fracture??POA: Yes ?Assessment AND?Plan: Awaiting placement in facility as he cannot return home due to inability to do stairs. Pain control is adequate. Neurovascular exam is intact. ? Hyperglycemia with DM1?POA: Yes ?Assessment AND?Plan: Sugars are labile. ? H/O?Charcot's joint of right foot POA: Yes ? IVDU (intravenous drug user) POA: Yes ?Assessment AND?Plan: stable ? Hypertension POA: Yes ?Assessment AND?Plan: stable, c/w home meds ? ??History of diabetic gastroparesis POA: Yes ? ??Tobacco abuse POA: Yes ?Assessment AND?Plan: cessation education given VTE Prophylaxis: Lovenox 40mg Sub Q Daily Disposition: Extended Care Facility Plan of care discussed with: Patient SIGNATURE: Marie Sahni MD PATIENT NAME: Tori Cantor DATE: May 30, 2019 TIME: 8:53 AM PAGER/CONTACT #: [phone] [facility] THERAPY NTon 05-30-2019 THERAPY NT HNO ID: [id number] Author: Swapna Knutson Service: Physical Therapy Author Type: Self Contained Behavior Unit Teacher Type: Therapy (PT/OT/Speech/Resp) Filed: 05/30/2019 3:45 PM Note Text: ----- Attestation signed by Andrzej Piedra at 05/30/2019 4:11 PM I reviewed and agree with the documentation corresponding to this therapy visit. SIGNATURE: Andrzej Piedra PT DATE: May 30, 2019 TIME: 4:11 PM ----- Physical Therapy Treatment SERVICE DATE: 05/30/2019 SERVICE TIME: 1506 to 1530 ROOM: [id number] Recommended Discharge Disposition: Subacute/SNF Recommended Discharge Disposition Comments: Patient below baseline functioning of ambulating household distances with a cane. Patient needed moderate assistance with wheeled walker to hop several feet. Patient presenting with safety deficits with ambulation and would benefit from skilled therapy to maximise independence and safety with bed mobiliy and ambulation. Patient currently requiring min-mod assistance with functional mobility and unsafe to go home. Justification For Post Acute Needs: Cognition intact;Good sitting tolerance;Motivated;Willi ng to participate;Anticipate that patient will require daily (5x/wk) skilled therapy in a post-acute facility setting at the time of acute hospital discharge PT Recommendations to Nursing: Ambulate with device;To bathroom;OOB for Meals;With assist of 1 person Device: Wheeled Walker PT 6 Clicks Score: 17 Precautions/Activity Restrictions: Fall Risk;Weight Bearing Restrictions Isolation Type: None Extremity With Weight Bearing Restricted: Left Lower Extremity Left Lower Extremity Weight Bearing Status: NWB ASSESSMENT : Patient Disposition at Start of Session: Supine in Bed;Call Hines in Reach;Bed Alarm Patient Disposition at End of Session: OOB in Chair;Call Hines in Reach Tolerated Full Session Fatigue Patient making progress toward goals but still tires easily. Cues for safety with wheeled walker and to ensure he is closer to surface before trying to sit. Goals ongoing. Physical Therapy Problem List: Pain;Safety Deficits;Decreased Activity Tolerance;Decreased Range Of Motion;Decreased Strength;Functional Mobility Impairment;Balance Impaired Patient /Caregiver Goals: Go To Rehab Goals for Plan of Care: Able to perform HEP with: Independent Transfer supine to/from sit with: Contact Guard Assistance Transfer sit to/from stand with: Contact Guard Assistance Ambulate with: Contact Guard Assistance Distance: 30 ft intervals Device: Wheeled Walker Progress Toward Goals: Progressing as expected Rehab Potential: Good PLAN: Treatment Frequency (times per week): 5(2-4) Current admission Treatment Interventions: Education;Energy Conservation Training;Strengthening;Fu nctional Mobility Training;Balance Training Plan of Care developed with: Patient TREATMENT INTERVENTIONS: Therapy Diagnosis: Reduced mobility-other;Muscle Weakness (generalized);Unsteadines s on feet Interventions Provided: Therapeutic Exercise (47444);Therapeutic Activity (70403);Gait Training (15366) Therapeutic Exercise (26199) Treatment Minutes: 14 1 unit Skilled Intervention(s): Instruction in therapeutic exercise for both legs: ankle pump, quad set, glute set, adductor set, hip abduction/adduction, heel slide, straight leg raise, short arc quad, long arc quad, and marching x 15 reps with assist for setup. Verbal and tactile cuing provided to maintain proper alignment, greater eccentric quad control, and slower pace. Therapeutic Activity (20010) Treatment Minutes: 1 0 units Skilled Intervention(s): Instructed patient in supine to sit pushing with upper extremities to sit up from flat bed with reliance on rail and edge of bed to help raise his trunk. Education with use of call light for assistance. Gait Training (06919) Treatment Minutes: 9 1 unit Skilled Intervention(s): Instruction in sit to stand technique with proper hand placement and body positioning at edge of bed/chair, Instruction in stand to sit technique with LE's touching chair/bed and reaching back for surface. Cues to ensure he gets closer to bed/chair before trying to sit. Instruction in sequencing, gait pattern and Instruction in correction of gait deviations with cues to avoid getting too close to front of walker, look up, more erect posture, non weight bearing of his left leg, and to safely navigate obstacles. Total Timed Code Treatment Minutes: 24 Total Treatment Time (minutes): 24 SUBJECTIVE: Current Hospital Course: Chart reviewed and no significant medical updates relevant to therapy were noted Reason for Physical Therapy Consult : eval and treat Relevant Past Medical History: DM, DKA, HTN, chracot Right foot Patient Report: voiced no new complaints. Home Environment Patient Lives With: Family(elderly father and aunt ) Assistance Available: PRN Entry To Home: Stairs;With Rail Number Of Stairs Into Home: 3 Number Of Stairs To Bed/Bath: 13 Stairs to Bed/Bath with: Unilateral Rail Tub/Shower Type: walk in shower Laundry: patient completes Equipment Owned: Cane;Wheeled Walker;Rollator Prior Functional Level: Within Functional Limits Prior Functional Level Comments: Pt reports using primarily using cane at baseline due to decreased mobility of right foot at baseline due to diagnosis of charcot foot. Patient reported needing hel with ADL's, however lives with elderly father and aunt who are unable to provide assistance. OBJECTIVE: CURRENT FUNCTIONAL STATUS: Current Functional Mobility Assist Level Additional Information Rolling Supine to Sit Stand By Assistance Sit to Supine Scooting Sit to Stand Minimal Assistance Stand to Sit Minimal Assistance Bed to Chair Minimal Assistance Bed To Chair Transfer Type: Stand Pivot Bed To Chair Transfer Equipment: Wheeled Walker Toilet/Commode Gait Minimal Assistance Gait Device: Wheeled Walker Gait Distance (feet): 2 x 20ft Stairs Curb Step Car Transfer Gait Deviations Left Lower Extremity: (NWB LLE) General Gait Deviations: Argelia decreased;Step length decreased;Flexed trunk posture;Difficulty changing direction/turning;Non-fun ctional gait speed;Loss of Balance(hop pattern on RLE) JH-HLM: 7: Walk 25 feet or more Please see discipline specific clinical documentation flowsheet for complete details for this therapy evaluation/treatment. SIGNATURE: Swapna Knutson PTA PATIENT NAME: Tori Cantor DATE: May 30, 2019 TIME: 3:38 PM [facility] THERAPY NT HNO ID: [id number] Author: Swapna Knutson Service: Physical Therapy Author Type: Self Contained Behavior Unit Teacher Type: Therapy (PT/OT/Speech/Resp) Filed: 05/30/2019 1:13 PM Note Text: ----- Attestation signed by Andrzej Piedra at 05/30/2019 4:11 PM I reviewed and agree with the documentation corresponding to this therapy visit. SIGNATURE: Andrzej Piedra PT DATE: May 30, 2019 TIME: 4:11 PM ----- PHYSICAL THERAPY MISSED VISIT SERVICE DATE: 05/30/2019 SERVICE TIME: 1306 to 1306 ROOM: [place] [address] Attempted Treatment. Patient not seen due to Declined. Reports has lost his footing and slipped to the floor earlier, ask to try again later today. SIGNATURE: Swapna Knutson PTA PATIENT NAME: Tori Cantor DATE: May 30, 2019 TIME: 1:12 PM Normal [facility] PROGRESSon 05-29-2019 PROGRESS HNO ID: [id number] Author: Marie Sahni Service: Hospital Medicine Author Type: Physician Type: Progress Notes Filed: 05/29/2019 11:41 AM Note Text: DEPARTMENT OF HOSPITAL MEDICINE PROGRESS NOTE SERVICE DATE: 05/29/2019 SERVICE TIME: 11:38 AM Hospital Medicine/Primary Attending: Marie Sahni MD NIGHT AND WEEKEND COVERAGE: After 7pm please page [phone] CHIEF COMPLAINT: L ankle fx SUBJECTIVE: No new complaints today. States his ankle feels about the same. He is getting some soreness. Denies nausea, vomiting, abdominal pain, chest pain or shortness of breath. OBJECTIVE: PHYSICAL EXAM: BP 157/85 Pulse 90 Temp (Src) 98.6 (Oral) Resp 16 Ht 5' 9 (1.75m) Wt 185 lb 10 oz (84.2kg) SpO2 97% BMI 27.40 kg/(m2). O2 Therapy: Room Air General - AANDOx3, NAD, Calm CV - RRR S1 S2, No M/R/G RESP - CTA B/L No wheezes, ronchi, rales ABD - soft, NT, ND +BS EXT - left ankle in a splint at this time. Toes with good sensation and capillary refill. MEDICATIONS: Current Facility-Administered Medications Medication Dose Route Frequency - aluminum-magnesium hydroxide-simethicone 200-200-20 mg/5 mL 30 mL (MAALOX,MYLANTA,MAG-AL PLUS) 30 mL ORAL DAILY PRN - ondansetron 4 mg tab(s) (ZOFRAN) 4 mg ORAL q 6 H PRN Or - ondansetron (PF) 4 mg injection (ZOFRAN) 4 mg INTRAVENOUS q 6 H PRN - docusate sodium 100 mg cap(s) (COLACE) 100 mg ORAL BID PRN - acetaminophen 650 mg tab(s) (TYLENOL) 650 mg ORAL q 6 H PRN - morphine 2-4 mg injection 2-4 mg INTRAVENOUS q 4 H PRN - pantoprazole DR 40 mg tab(s) (PROTONIX) 40 mg ORAL DAILY (6 AM) - lisinopril 10 mg tab(s) (ZESTRIL, PRINIVIL) 10 mg ORAL DAILY - insulin lispro 14 Units pen (rapid acting) (HumaLOG KWIKPEN) 14 Units SUBCUTANEOUS TID before MEALS - dextrose 40 % 15 g 15 g ORAL PRN Or - glucagon 1 mg injection (GLUCAGEN) 1 mg INTRAMUSCULAR PRN Or - dextrose 50 % 12.5 g injection 12.5 g INTRAVENOUS PRN - insulin lispro pen (rapid acting) (HumaLOG KWIKPEN) SUBCUTANEOUS AT BEDTIME - insulin glargine 20 Units pen (long acting) (LANTUS SOLOSTAR, BASAGLAR KWIKPEN) 20 Units SUBCUTANEOUS BID - DULoxetine 60 mg cap(s) (CYMBALTA) 60 mg ORAL BID - enoxaparin 40 mg injection (LOVENOX) 40 mg SUBCUTANEOUS q 24 HR DATA: Diagnostic tests reviewed for today's visit: Assessment/Plan ?Left ankle joint deformity/fracture??POA: Yes ?Assessment AND?Plan: Ortho consulted and saw pt in ED: recommend ice, elevate. Will follow as outpatient for surgical fixation of left ankle fracture, pain control, antinausea, PT Patient will need to go to rehab due inability to ambulate stairs in home ? Hyperglycemia with DM1?POA: Yes ?Assessment AND?Plan: Sugars are reasonably well controlled. ? H/O?Charcot's joint of right foot POA: Yes ? IVDU (intravenous drug user) POA: Yes ?Assessment AND?Plan: c/s SW, check urine drug screen. Will probably need pain management postoperatively. ? Hypertension POA: Yes ?Assessment AND?Plan: stable, c/w home meds ? ??History of diabetic gastroparesis POA: Yes ? ??Tobacco abuse POA: Yes ?Assessment AND?Plan: cessation education given VTE Prophylaxis: Lovenox 40mg Sub Q Daily Disposition: Extended Care Facility Plan of care discussed with: Patient SIGNATURE: Marie Sahni MD PATIENT NAME: Tori Cantor DATE: May 29, 2019 TIME: 11:38 AM PAGER/CONTACT #: [phone] [facility] PROGRESS HNO ID: [id number] Author: Bryson Bocanegra Service: Orthopaedic Surgery Author Type: Resident Type: Progress Notes Filed: 05/29/2019 7:18 AM Note Text: ORTHOPAEDIC SURGERY DAILY PROGRESS NOTE Patient Name: Tori Cantor Date of Evaluation: 05/29/2019 Admission Date: 05/27/2019 Time of Evaluation: 6:33 AM ASSESSMENT: 44 year old male left bimalleolar fracture/dislocation PLAN: - Medical management per primary - Pain control per primary - Splint in place, maintain - Strict ice and elevation of left lower extremity - NWB LLE - Patient will need surgical fixation of left ankle fracture, following with Dr. Vogel on 06/03/2019 in office if discharged - Ok for discharge from orthopaedic standpoint INTERVAL HPI: Patient monitored, no new events overnight. Patient states that they are comfortable. Well Controlled pain. Denies nausea/vomitting. OBJECTIVE: BP 108/61 Pulse 93 Temp 36.8 ?C (98.2 ?F) (Oral) Resp 16 Ht 175.3 cm (5' 9) Wt 84.2 kg (185 lb 10 oz) SpO2 93% BMI 27.41 kg/m? Intake/Output Summary (Last 24 hours) 05/28 2300 - 05/29 0659 In: 1000 [IV:1000] Out: - Exam: General: NAD, AAOx3 Extremities: Left Lower Extremity: Splint in place SILT S/S/SP/DP/T Motor intact DF/PF/EHL DP pulse palpable, foot warm with pulses Compartments soft, compressible. Tolerates passive stretch of digits. Labs: BMP: Sodium 138 05/28/2019 Potassium 4.0 05/28/2019 Chloride 105 05/28/2019 CO2 29 05/28/2019 BUN 19 05/28/2019 Creatinine 0.61 05/28/2019 Glucose 202 05/28/2019 CBC: WBC 6.18 05/28/2019 Hemoglobin 13.9 05/28/2019 Hematocrit 42.4 05/28/2019 Platelet Count 150 05/28/2019 COAGS: APTT 32.8 04/26/2003 PT INR 1.1 04/26/2003 SED RATE/CRP: No results found for this basename: wsr:*,crp:* Imaging: no new images Bryson Bocanegra MD Resident, Orthopaedic Surgery Pager #: [phone] 05/29/2019 6:33 AM Please page [phone] from 5p-6a and on weekends for any issues. Normal [facility] THERAPY NTon 05-29-2019 THERAPY NT HNO ID: [id number] Author: Kaveh Ha) Joshua Service: Physical Therapy Author Type: Self Contained Behavior Unit Teacher Type: Therapy (PT/OT/Speech/Resp) Filed: 05/29/2019 12:06 PM Note Text: ----- Attestation signed by Andrzej AaronPt) Dorothea at 05/29/2019 4:18 PM I reviewed and agree with the documentation corresponding to this therapy visit. SIGNATURE: Andrzej Piedra, PT DATE: May 29, 2019 TIME: 4:18 PM ----- Physical Therapy Treatment SERVICE DATE: 05/29/2019 SERVICE TIME: 1125 to 1148 ROOM: [id number] Recommended Discharge Disposition: Subacute/SNF Recommended Discharge Disposition Comments: Patient below baseline functioning of ambulating household distances with a cane. Patient needed moderate assistance with wheeled walker to hop several feet. Patient presenting with safety deficits with ambulation and would benefit from skilled therapy to maximise independence and safety with bed mobiliy and ambulation. Patient currently requiring min-mod assistance with functional mobility and unsafe to go home. Justification For Post Acute Needs: Cognition intact;Good sitting tolerance;Motivated;Willi ng to participate;Anticipate that patient will require daily (5x/wk) skilled therapy in a post-acute facility setting at the time of acute hospital discharge PT Recommendations to Nursing: Ambulate with device;To bathroom;OOB for Meals;With assist of 1 person Device: Wheeled Walker PT 6 Clicks Score: 16 Precautions/Activity Restrictions: Fall Risk;Weight Bearing Restrictions Extremity With Weight Bearing Restricted: Left Lower Extremity Left Lower Extremity Weight Bearing Status: NWB ASSESSMENT : Patient presents with ongoing PT goals---patient with improved gait distances this date, patient requiring rest breaks, secondary to fatigue--patient able to maintain proper NWB on LLE at all times--barriers to home going include 3 steps to enter home, and 13 steps to bedroom, patient lives with elderly father and aunt, unable to assist with mobility for safe home going at this time. Patient continues to be recommended for subacute/SNF to improve strength, balance, endurance, increased ambulation distances with normalize gait pattern, and increased independence with functional task performance/mobility to prior level of function. Patient Disposition at Start of Session: Supine in Bed;Call Hines in Reach Patient Disposition at End of Session: OOB in Chair;Call Hines in Reach Tolerance Limited By Fatigue Physical Therapy Problem List: Pain;Safety Deficits;Decreased Activity Tolerance;Decreased Range Of Motion;Decreased Strength;Functional Mobility Impairment;Balance Impaired Patient /Caregiver Goals: Go To Rehab Goals for Plan of Care: Able to perform HEP with: Independent Transfer supine to/from sit with: Contact Guard Assistance Transfer sit to/from stand with: Contact Guard Assistance Progress Toward Goals: Progressing as expected Rehab Potential: Good PLAN: Treatment Frequency (times per week): 5(2-4) Current admission Treatment Interventions: Education;Energy Conservation Training;Strengthening;Fu nctional Mobility Training;Balance Training Plan of Care developed with: Patient TREATMENT INTERVENTIONS: Therapy Diagnosis: Reduced mobility-other;Muscle Weakness (generalized);Unsteadines s on feet Interventions Provided: Therapeutic Exercise (89208);Therapeutic Activity (36331);Gait Training (89770) Therapeutic Exercise (12454) Treatment Minutes: 10 1 unit Skilled Intervention(s): Patient completed bilateral LE strengthening (ankle pump (RLE only), quad set, gluteal set, heel slide, hip abd/add, straight leg raise, short arc quad, long arc quad) 1 to 2 sets x10 to 12 treps with cuing amount of assist. Cuing for proper LE alignment and ROM to maximize muscle recruitment/strengthening . Therapeutic Activity (40937) Treatment Minutes: 3 0 units Skilled Intervention(s): Instructed patient in supine to sit pushing with upper extremities to sit up Instruction in sit to and from stand technique with proper hand placement and body positioning at edge of bed/chair--cuing to square up to seated surfaces with LEs touching, proper UE support and controlled movements--patient maintaining NWB LLE at all times during therapy. Gait Training (01023) Treatment Minutes: 10 1 unit Skilled Intervention(s): Instruction in sit to stand technique with proper hand placement and body positioning at edge of bed/chair, Instruction in stand to sit technique with LE's touching chair/bed and reaching back for surface, Instruction in sequencing, gait pattern and Instruction in correction of gait deviations--cuing for proper posture, increased UE support for improved RLE clearance during hopping, cuing for proper walker proximity/management. Total Timed Code Treatment Minutes: 23 Total Treatment Time (minutes): 23 SUBJECTIVE: Current Hospital Course: Chart reviewed and no significant medical updates relevant to therapy were noted Reason for Physical Therapy Consult : eval and treat Relevant Past Medical History: DM, DKA, HTN, chracot Right foot Patient Report: patient stated I dont have any help at home, I live with my elderly father and aunt, who are unable to assist me at this level. Home Environment Patient Lives With: Family(elderly father and aunt ) Assistance Available: PRN Entry To Home: Stairs;With Rail Number Of Stairs Into Home: 3 Number Of Stairs To Bed/Bath: 13 Stairs to Bed/Bath with: Unilateral Rail Tub/Shower Type: walk in shower Laundry: patient completes Equipment Owned: Cane;Wheeled Walker;Rollator Prior Functional Level: Within Functional Limits Prior Functional Level Comments: Pt reports using primarily using cane at baseline due to decreased mobility of right foot at baseline due to diagnosis of charcot foot. Patient reported needing hel with ADL's, however lives with elderly father and aunt who are unable to provide assistance. OBJECTIVE: CURRENT FUNCTIONAL STATUS: Current Functional Mobility Assist Level Additional Information Rolling Supine to Sit Contact Guard Assistance Sit to Supine Scooting Contact Guard Assistance Sit to Stand Minimal Assistance Stand to Sit Minimal Assistance Bed to Chair Minimal Assistance Bed To Chair Transfer Type: Stand Pivot Bed To Chair Transfer Equipment: Gait Belt;Wheeled Walker Toilet/Commode Gait Minimal Assistance Gait Device: Wheeled Walker Gait Distance (feet): 12'x4 Stairs Curb Step Car Transfer Gait Deviations Left Lower Extremity: (NWB LLE) General Gait Deviations: Argelia decreased;Step length decreased;Flexed trunk posture;Difficulty changing direction/turning;Non-fun ctional gait speed;Loss of Balance(hop pattern on RLE) JH-HLM: 7: Walk 25 feet or more(combined walks equal 25' or greater) Please see discipline specific clinical documentation flowsheet for complete details for this therapy evaluation/treatment. SIGNATURE: Kaveh Lewis PTA PATIENT NAME: Tori Cantor DATE: May 29, 2019 TIME: 11:57 AM Normal [facility] ALLIED HEALTHon 05-28-2019 ALLIED HEALTH HNO ID: [id number] Author: Paola Raines (Chaplain), Student Service: ? Author Type: Lithographic Press Feeder Type: Allied Health Filed: 05/28/2019 9:30 AM Note Text: SPIRITUAL CARE PROGRESS NOTE SERVICE DATE: 05/28/2019 SERVICE TIME: 9:00 am As a bar machine operator production made an intro visit to PT. PT was sleeping at the time of arrival. To contact the Spiritual Care Department: Please call [phone]. SIGNATURE: Chaplain Ashlie Steamtable Attendant [employer] PATIENT NAME: Tori Cantor DATE: May 28, 2019 TIME: 9:29 AM PAGER/CONTACT #: [phone] Normal [facility] Basic Panelon 05-28-2019 Creatinine [Mass/Vol] 0.61 mg/dL Low 0.67-1.17 [facility] Comment on above: Performed By: #### P 8 #### [address] [address] Anion gap [Moles/Vol] 8 mmol/L Normal 8-16 [facility] Comment on above: Performed By: #### P 8 #### [facility] [address] [place], [place] [address] CO2 [Moles/Vol] 29 mmol/L Normal 21-32 [facility] Comment on above: Performed By: #### P 8 #### [address] [address] Urea nitrogen [Mass/Vol] 19 mg/dL High 7-18 [facility] Comment on above: Performed By: #### P 8 #### [facility] [address] [place], [place] [address] Calcium [Mass/Vol] 8.8 mg/dL Normal 8.5-10.1 [facility] Comment on above: Performed By: #### P 8 #### [facility] [address] [place], [place] [address] Glucose [Mass/Vol] 202 mg/dL High 70-99 [facility] Comment on above: Performed By: #### P 8 #### [facility] [address] [place], [place] [address] Chloride [Moles/Vol] 105 mmol/L Normal 98-107 [facility] Comment on above: Performed By: #### P 8 #### [facility] [address] [place], [place] [address] Potassium [Moles/Vol] 4.0 mmol/L Normal 3.5-5.1 [facility] Comment on above: Performed By: #### P 8 #### [facility] [address] [place] [address] Sodium [Moles/Vol] 138 mmol/L Normal 136-145 [facility] Comment on above: Performed By: #### P 8 #### [facility] [address] [place] [address] Hemogramon 05-28-2019 Erythrocyte distribution width (RBC) [Ratio] 12.2 % Normal 11.6-14.4 [facility] Comment on above: Performed By: #### C BC1 #### [facility] [address] [place], [place] [address] Hematocrit (Bld) [Volume fraction] 42.4 % Normal 40.1-51.0 [facility] Comment on above: Performed By: #### C BC1 #### [facility] [address] [place], [place] [address] Hemoglobin (Bld) [Mass/Vol] 13.9 g/dL Normal 13.7-17.5 [facility] Comment on above: Performed By: #### C BC1 #### [facility] [address] [place] [id number] MCH (RBC) [Entitic mass] 29.1 pg Normal 25.7-32.2 [facility] Comment on above: Performed By: #### C BC1 #### [facility] [address] [place], [place] [address] MCHC (RBC) [Mass/Vol] 32.8 % Normal 32.3-36.5 [facility] Comment on above: Performed By: #### C BC1 #### [facility] [address] [place] [address] MCV (RBC) [Entitic vol] 88.7 fL Normal 83.2-95.6 [facility] Comment on above: Performed By: #### C BC1 #### [facility] [address] [place] [address] Platelet mean volume (Bld) [Entitic vol] 12.6 fL High 8.7-12.0 [facility] Comment on above: Performed By: #### C BC1 #### [place] [address] Platelets (Bld) [#/Vol] 150 thou/cmm Normal 141-365 [facility] Comment on above: Performed By: #### C BC1 #### [place] [address] RBC (Bld) [#/Vol] 4.78 mil/cmm Normal 4.63-6.08 [facility] Comment on above: Performed By: #### C BC1 #### [place] [address] RDW SD 39.8 fl Normal 36.1-45.8 [facility] Comment on above: Performed By: #### C BC1 #### [facility] [address] [place], [place] [address] WBC (Bld) [#/Vol] 6.18 thou/cmm Normal 4.23-9.07 [facility] Comment on above: Performed By: #### C BC1 #### [address] [address] MDRD GFRon 05-28-2019 GFR/1.73 sq M predicted among non-blacks MDRD (S/P/Bld) [Vol rate/Area] mL/min/{1.73_m2} Normal >60mL/min/1. 73m2 [facility] Comment on above: Result Comment: If t he patient is , multiply the result by 1.210. Performed By: #### G FR #### [facility] [address] [place] [address] PROGRESSon 05-28-2019 PROGRESS HNO ID: [id number] Author: Marie Sahni Service: Hospital Medicine Author Type: Physician Type: Progress Notes Filed: 05/28/2019 9:25 AM Note Text: DEPARTMENT OF HOSPITAL MEDICINE PROGRESS NOTE SERVICE DATE: 05/28/2019 SERVICE TIME: 9:22 AM Hospital Medicine/Primary Attending: Marie Sahni MD NIGHT AND WEEKEND COVERAGE: After 7pm please page [phone] CHIEF COMPLAINT: Ankle pain SUBJECTIVE: Patient does complain of some ankle pain but appears comfortable at this time. He is not complaining of any chest pain or shortness of breath, nausea or vomiting. OBJECTIVE: PHYSICAL EXAM: BP 121/75 Pulse 90 Temp (Src) 98.4 (Oral) Resp 18 Ht 5' 9 (1.75m) Wt 185 lb 10 oz (84.2kg) SpO2 98% BMI 27.40 kg/(m2). O2 Therapy: Room Air General - AANDOx3, NAD, Calm CV - RRR S1 S2, No M/R/G RESP - CTA B/L No wheezes, ronchi, rales ABD - soft, NT, ND +BS EXT - no gross joint deformity, no clubbing, cyanosis, edema. Capillary refill and light touch sensation in the toes are normal. MEDICATIONS: Current Facility-Administered Medications Medication Dose Route Frequency - NaCl 0.9% iv infusion 75 mL/hr INTRAVENOUS CONTINUOUS - aluminum-magnesium hydroxide-simethicone 200-200-20 mg/5 mL 30 mL (MAALOX,MYLANTA,MAG-AL PLUS) 30 mL ORAL DAILY PRN - ondansetron 4 mg tab(s) (ZOFRAN) 4 mg ORAL q 6 H PRN Or - ondansetron (PF) 4 mg injection (ZOFRAN) 4 mg INTRAVENOUS q 6 H PRN - docusate sodium 100 mg cap(s) (COLACE) 100 mg ORAL BID PRN - acetaminophen 650 mg tab(s) (TYLENOL) 650 mg ORAL q 6 H PRN - morphine 2-4 mg injection 2-4 mg INTRAVENOUS q 4 H PRN - pantoprazole DR 40 mg tab(s) (PROTONIX) 40 mg ORAL DAILY (6 AM) - lisinopril 10 mg tab(s) (ZESTRIL, PRINIVIL) 10 mg ORAL DAILY - insulin lispro 14 Units pen (rapid acting) (HumaLOG KWIKPEN) 14 Units SUBCUTANEOUS TID before MEALS - dextrose 40 % 15 g 15 g ORAL PRN Or - glucagon 1 mg injection (GLUCAGEN) 1 mg INTRAMUSCULAR PRN Or - dextrose 50 % 12.5 g injection 12.5 g INTRAVENOUS PRN - insulin lispro pen (rapid acting) (HumaLOG KWIKPEN) SUBCUTANEOUS AT BEDTIME - insulin glargine 20 Units pen (long acting) (LANTUS SOLOSTAR, BASAGLAR KWIKPEN) 20 Units SUBCUTANEOUS BID DATA: Diagnostic tests reviewed for today's visit: CBC: Recent Labs 05/28/19 0408 WBC 6.18 RBC 4.78 HB 13.9 HCT 42.4 PLT 150 MCV 88.7 MCH 29.1 MPV 12.6* RDW 12.2 CMP: Recent Labs 05/28/19 0408 NA 138 K 4.0 CHLOR 105 CO2 29 BUN 19* CREAT 0.61* GLUC 202* CA 8.8 ANION 8 Assessment/Plan Left ankle joint deformity/fracture POA: Yes Assessment AND Plan: Ortho consulted and saw pt in ED: recommend ice, elevate. Will follow as outpatient for surgical fixation of left ankle fracture, pain control, antinausea, PT Patient will need to go to rehab due inability to ambulate stairs in home ? Hyperglycemia with DM1 POA: Yes Assessment AND Plan: accu check ac/hs, ssi, c/w home meds, check a1c ? H/O Charcot's joint of right foot POA: Yes IVDU (intravenous drug user) POA: Yes Assessment AND Plan: c/s SW, check urine drug screen. Will probably need pain management postoperatively. ? Hypertension POA: Yes Assessment AND Plan: stable, c/w home meds ? History of diabetic gastroparesis POA: Yes Tobacco abuse POA: Yes Assessment AND Plan: cessation education given VTE Prophylaxis: Lovenox 40mg Sub Q Daily Disposition: Extended Care Facility Plan of care discussed with: Patient SIGNATURE: Marie Sahni MD PATIENT NAME: Tori Cantor DATE: May 28, 2019 TIME: 9:22 AM PAGER/CONTACT #: [phone] [facility] PROGRESS HNO ID: [id number] Author: Downtime Note Service: ? Author Type: ? Type: Progress Notes Filed: 05/28/2019 3:47 AM Note Text: Epic Scheduled Downtime: 05/28/2019 1:00:00 AM to 05/28/2019 3:36:00 AM [facility] Basic Panelon 05-27-2019 Creatinine [Mass/Vol] 0.79 mg/dL Normal 0.67-1.17 [facility] Comment on above: Performed By: #### P 8 #### [address] [address] Anion gap [Moles/Vol] 15 mmol/L Normal 8-16 [facility] Comment on above: Performed By: #### P 8 #### [address] [address] CO2 [Moles/Vol] 30 mmol/L Normal 21-32 [facility] Comment on above: Performed By: #### P 8 #### [facility] [address] [place], [place] [address] Urea nitrogen [Mass/Vol] 19 mg/dL High 7-18 [facility] Comment on above: Performed By: #### P 8 #### [facility] [address] [place], [place] [address] Calcium [Mass/Vol] 9.7 mg/dL Normal 8.5-10.1 [facility] Comment on above: Performed By: #### P 8 #### [facility] [address] [place], [place] [address] Glucose [Mass/Vol] 430 mg/dL Critically high 70-99 [facility] Comment on above: Performed By: #### P 8 #### [facility] [address] [place], [place] [address] Chloride [Moles/Vol] 92 mmol/L Low 98-107 [facility] Comment on above: Performed By: #### P 8 #### [facility] [address] [place], [place] [address] Potassium [Moles/Vol] 4.4 mmol/L Normal 3.5-5.1 [facility] Comment on above: Performed By: #### P 8 #### [facility] [facility] [address] [place], [place] [address] Sodium [Moles/Vol] 133 mmol/L Low 136-145 [facility] Comment on above: Performed By: #### P 8 #### [facility] [address] [place], [place] [address] CASE MANAGEMon 05-27-2019 CASE MANAGEM HNO ID: [id number] Author: Spencer Malone (Sw) Service: Care Management Author Type: Basin Cleaner Type: Care Mgt Progress Note Filed: 05/27/2019 3:54 PM Note Text: CARE MANAGEMENT PROGRESS NOTE SERVICE DATE: 05/27/2019 SERVICE TIME: 3:30 PM LOS: [address] [facility] is able to accept the patient pending precert and they have started precert. The patient is agreeable to this option due to it being his first choice as a facility due to it being closer to his home. Social work updated floor staff and will follow appropriately. SIGNATURE: VINCENT Kyle PATIENT NAME: Tori Cantor DATE: May 27, 2019 TIME: 3:50 PM PAGER/CONTACT #: [phone] Normal [facility] CASE MANAGEM HNO ID: [id number] Author: Spencer Malone (Sw) Service: Care Management Author Type: Basin Cleaner Type: Care Mgt Progress Note Filed: 05/27/2019 7:05 PM Note Text: CARE MANAGEMENT PROGRESS NOTE SERVICE DATE: 05/27/2019 SERVICE TIME: 11:30 Am LOS: 0 days Discharge Planning The patient reports he lives in the basement of his fathers home and reports he can't use the crutches due to his mobility. The patient was upset and wanted to go home. But had no supports to care for him. The patient reports mobility issues with going up and down the stairs with his injury. Social work talked with ED Physician and recommend PT be consulted. Social work spoke with PT innovation manager who reported that someone will be sent down after lunch. Social work will follow appropriately. SIGNATURE: VINCENT Kyle PATIENT NAME: Tori Cantor DATE: May 27, 2019 TIME: 6:12 PM PAGER/CONTACT #: [phone] [facility] CASE MGT INIT Porfirio 2018 CASE MGT INIT DAMIEN HNO ID: [id number] Author: Spencer Malone (Sw) Service: Care Management Author Type: Basin Cleaner Type: Care Mgt Initial Assessment Filed: 05/27/2019 2:33 PM Note Text: CARE MANAGEMENT: ASSESSMENT AND DISCHARGE PLAN SERVICE DATE: 05/27/2019 SERVICE TIME: 1:00 PM PRIMARY CARE PHYSICIAN: Elizabeth Nelson DO ADMISSION STATUS: Emergency Needs Prior to Discharge: Accepting Facility;Precertification ;Discharge Transportation;OT/PT Evaluation MEDICAL: 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 No Advance Directive: Current Advance Directive: None Lens Blocker Attempted to Assist with AD Completion: Yes Action: Education Provided;Patient Unwilling Health Literacy: 1. How often do you need to have someone help you when you read instructions, pamphlets, or other written material from your doctor or pharmacy? Always - 5 2. How confident are you filling out medical forms by yourself? Not at all - 5 If Patient scores > 3 on either question, the following interventions were put into place: Use concrete and specific phrases, avoid medical jargon, Sit with Patient, Gave Patient the opportunity to ask questions and patient reports he has no supports at home to assist FUNCTIONAL AND COGNITIVE/BEHAVIORAL PRIOR TO ADMISSION: Baseline Mental Status: Alert AND Oriented, Person, Place and Time Functional Status: Needs Assistance but know reports he can't care for himself Does Patient Currently Receive Any Community Services or Home Care? None Equipment Prior to Admission: Walker Has the Patient Been in a Halfway Facility in the Past 30 days? No SOCIAL: Living Arrangement: Home Lives With: Father Financial Resources: Disabled Primary Contact: Extended Emergency Contact Information Primary Emergency Contact: Ingris Flowers Relation: Other Supportive: Yes Other Important Patient Contacts: None Caregiver Assessment: Caregiver is ready, willing and able to meet the patient's needs as recommended by the inter-professional team? No patient has no supports Patient's transition needs and plan for meeting these needs: pending PT/OT evaluation possible SNF Does the patient have an acute stroke diagnosis, or has the patient had a stroke during this admission? No Medication Adherence: I am convinced of the importance of my prescription medication: Agree completely - 0 I worry that my prescription medication will do more harm than good to me Disagree completely - 0 I feel financially burdened by my [id number]-[id number] expenses for my prescription medication: Agree completely - 2 Patient is categorized as low risk < 2 Are you interested in bedside delivery of your medications? No Food Concerns: In the Last Month, Have You had Trouble Getting Food? No trouble getting food During the Last Month, Have You Worried Whether Your Food Would Run Out Before You Had Enough Money to Buy More? No Is the Patient Psychosocially Complex? Yes, refer to Social Work. ASSESSMENT AND PLAN: Medical Needs: Ankle Injury Psychosocial Needs: Substance Use FREEDOM OF CHOICE EXPLAINED: Yes agreeable to placement Financial Disclosure Provided The patient and/or family has been given the Provider List: Yes Provider List: Halfway Facility Preference: Amaury Gonzalez by [facility] POTENTIAL TRANSITION PLANS Halfway Facility/Intermediate Care Facility The patient has PCP, + RX Coverage, and - DME. The patient reports he goes [facility] ([address] [place] [address]) as his pharmacy. Social work was paged to met with the patient who reports she used fentanyl that he bought off the street yesterday morning due to pain. The patient denies any other drug use and reports he was in halfway Mar 09, 2019 then released last Thursday. The patient reports he went to halfway due to drugs but declined to elaborate. The patient reports she lives in his 80 year old fathers basement and due to his injury isn't able to go down the steps. The patient reports he is disabled and his ex spouse keeps his two kids away from him. The patient reports he can't use the crutches and is scared of falling at home. The patient reports deficits in caring for himself before the injury today with his ankle. The patient reports he was on medicaid and it was dropped when he went on Medicare. The patient reports he gets $757 a month from SSI. Social work will place referrals to SNF and left message for the liaison Kaykay from [facility] for [employer] resources. Social work will follow appropriately. SIGNATURE: VINCENT Kyle PATIENT NAME: Tori Cantor DATE: May 27, 2019 TIME: 1:56 PM PAGER/CONTACT #: [phone] [facility] CONSULTon 05-27-2019 CONSULT HNO ID: [id number] Author: Jayy Vogel Service: Orthopaedic Surgery Author Type: Physician Type: Consults Filed: 05/28/2019 9:23 AM Note Text: ORTHOPAEDIC SURGERY CONSULT Pt: TORI CANTOR Date of consultation: 05/27/2019 Consulting Physician: Dr. Jayy Vogel, orthopedic surgery Reason for consultation: Left ankle fracture/dislocation ORTHO STAFF: History and physical examination reviewed. Orthopaedic consultation reviewed. Patient seen and examined. Agree with orthopaedic resident assessment and plan. Left ankle fracture dislocation with significant skin ulceration consistent with several hours of pressure. Currently in acceptable reduced position within splint. Anticipate operative stabilization in 10-14 days based on soft tissue compromise. Should remain non-weight bearing in splint (crutches, walker, or wheelchair). With history of IVDA and severe neuropathy, this injury has a very high risk of failure to heal and subsequent amputation. Discussed in detail with patient. Will have office schedule orthopaedic clinic visit Thursday06/03/2019. This injury does not require inpatient management from orthopaedic standpoint. Jayy Vogel MD HPI: 44 year old male presenting today to the emergency department for evaluation of a left ankle injury. The patient has a significant past medical history of Charcot joint on his right foot, diabetes, and IV drug abuse and states he injected fentanyl 12 hours prior to arrival. He woke up in the middle of the night and attempted to stand and tripped and noticed immediate left ankle pain and deformity. He denies any other areas of pain. Patient states he has baseline neuropathy in his bilateral lower extremities. PAST MEDICAL HISTORY Diagnosis Date - Diabetes ([facility]) - DKA (diabetic ketoacidosis) ([facility]) 08/2014 - Hypertension - Lactose intolerance 07/30/2016 - Pancreatitis 08/2014 PAST SURGICAL HISTORY Procedure Laterality Date - NONE Allergies: Patient has no known allergies. Current Facility-Administered Medications: NaCl 0.9% 1,000 mL iv bolus 1,000 mL INTRAVENOUS ONCE Current Outpatient Medications: insulin detemir (LEVEMIR U-100 INSULIN SUBCUTANEOUS) Inject subcutaneously. lisinopril (ZESTRIL, PRINIVIL) 10 mg tablet Take 1 tablet by mouth once daily for 15 days. ibuprofen (MOTRIN) 600 mg tablet Take 1 tablet by mouth every 8 hours as needed. insulin detemir U-100 (LEVEMIR FLEXTOUCH U-100 INSULN) 100 unit/mL (3 mL) inpn injection 30 units sc at breakfast, 30 units at bedtime. insulin lispro (HUMALOG KWIKPEN INSULIN) 100 unit/mL inpn Inject 20 Units subcutaneously three times daily before meals. pantoprazole DR (PROTONIX) 20 mg tablet Take 20 mg by mouth once daily. Lancets lancets Use as instructed Insulin Dudley, Disposable, (BD ULTRAFINE III MINI PEN) 31 gauge x 3/16 ndle USE WITH INSULIN PENS 4TIMES DAILY DULoxetine (CYMBALTA) 30 mg capsule Take 1 capsule by mouth once daily. pregabalin (LYRICA) 150 mg capsule Take 150 mg by mouth three times daily. blood sugar diagnostic (play140TOUCH ULTRA TEST) test strip CHECK BLOOD SUGARS 6 TIMES DAILY FH: Non-contributory. Negative for any bleeding or clotting disorders. Social Hx: Positive IV drug abuse. States he last used fentanyl 24 hours ago. ROS: 10 pt ROS neg except in HPI O: Vitals: BP 124/90 Pulse (!) 100 Temp 36.6 ?C (97.9 ?F) (Oral) Resp 16 Ht 175.3 cm (5' 9) Wt 90.3 kg (199 lb) SpO2 100% BMI 29.39 kg/m? Labs: Recent Labs 05/27/19 0850 NA 133* K 4.4 CHLOR 92* CO2 30 BUN 19* CREAT 0.79 GLUC 430* ANION 15 CA 9.7 WBC 6.65 HB 15.7 HCT 48.6 PLT 161 Physical exam: General: AANDO x 3; NAD. Cooperative throughout entire interview Extremities: Lower extremity, obvious deformity to the left ankle. Significant tenderness to palpation throughout the left ankle. Macerated skin over medial ankle with skin tenting. Brisk capillary refill in all digits. Palpable dorsalis pedis pulse. Dopplerable PT pulse. Wiggles toes. Imaging: Multiple views of left ankle reviewed and demonstrate a lateral ankle fracture dislocation Procedure Note: The risks/limitations/benefit s/alternatives were discussed with the patient. The patient agreed to continue. Timeout performed. Site identified. Landmarks marked. Using a sterile technique, 15 mL 1% lidocaine without epinephrine was injected into the left ankle using anterior medial approach. Once adequate analgesia was obtained, a reduction maneuver was performed and a well-padded splint was applied. Postreduction x-rays demonstrates reduced ankle joint. A/P: 44 year old male with left bimalleolar ankle fracture/dislocation - Reduction and splint applied in the emergency department - Pain medications at discharge per emergency department - Okay for discharge from orthopedic standpoint - Strict ice and elevation of left lower extremity - I stressed the importance of nonweightbearing on the left ankle to the patient and he understood the risks if he weight bears through his splint. - Patient will need surgical fixation of left ankle fracture next week. Discussed with Dr. Vogel, all in agreement. Pranav Reynolds MD 9:56 AM May 27, 2019 [facility] ED NOTEon 05-27-2019 ED NOTE HNO ID: [id number] Author: Garry AaronRn) MATT Maier Service: Emergency Medicine Author Type: Registered Nurse Type: ED Notes Filed: 05/27/2019 11:40 AM Note Text: Patient verbalizes difficulty with crutches. Per patient my hands are numb and I can't use them. Dr. Haque notified. [facility] ED NOTE HNO ID: [id number] Author: Garry AaronRn) MATT Maier Service: Emergency Medicine Author Type: Registered Nurse Type: ED Notes Filed: 05/27/2019 9:03 AM Note Text: Patient returned to the Emergency Department. [facility] ED NOTE HNO ID: [id number] Author: Garry Hogan) MATT Maier Service: Emergency Medicine Author Type: Registered Nurse Type: ED Notes Filed: 05/27/2019 8:11 AM Note Text: Medical student at bedside [facility] ED NOTE HNO ID: [id number] Author: Maribell (Medic) Leroy Chapman Service: ? Author Type: Scientific Investigator and Shot Polisher And Inspector Type: ED Notes Filed: 05/27/2019 8:02 AM Note Text: Bed: 13-ED Expected date: 05/27/19 Expected time: 7:43 AM Means of arrival: Yue BRICE/EMS Comments: Yue ankle pain Normal [facility] ED PROV NOTEon 05-27-2019 ED PROV NOTE HNO ID: [id number] Author: Aleida Parnell MD Service: Emergency Medicine Author Type: Physician Type: ED Provider Notes Filed: 05/29/2019 2:55 PM Note Text: ED Provider Note Patient Name: Tori Cantor SERVICE DATE: 05/27/19 History Patient presents with: Ankle Injury: patient arrives via ems from home with complaint of deformity to left ankle. perpmargaretetn stood up this morning and had immediate pain to left ankle. +deformity. per pateitn had same thing happen to him on right ankle. also noted per ems had BS in 400s. 34-year-old male with past medical history of Charcot joint, diabetes, IV drug abuse presents with left ankle injury. Patient states 12 hours prior to arrival he injected fentanyl. Patient states he remembers going home going to sleep in his bed. Patient woke up in the night and attempted to stand and noticed a deformity to his left ankle. Patient denies trauma to the joint. Patient states currently his pain is tolerable. Patient has baseline neuropathy from his hip down denies change in sensation. Patient has no injury or deformity to his knee. PAST MEDICAL HISTORY Diagnosis Date - Diabetes ([facility]) - DKA (diabetic ketoacidosis) ([facility]) 08/2014 - Hypertension - Lactose intolerance 07/30/2016 - Pancreatitis 08/2014 PAST SURGICAL HISTORY Procedure Laterality Date - NONE FAMILY HISTORY Problem Relation Age of Onset - Hypertension Mother - Diabetes Mother - Stroke Mother - Heart Mother CHF - Cataract Mother - Hypertension Father - COPD Father - Emphysema Father Social History Tobacco Use - Smoking status: Current Every Day Smoker Packs/day: 0.50 Types: Cigarettes - Smokeless tobacco: Never Used Substance and Sexual Activity - Alcohol use: Yes Comment: socially - Drug use: No Comment: hist of cocaine and marajuana use - Sexual activity: Not on file ALLERGIES No Known Allergies Review of Systems Constitutional: Negative for chills, diaphoresis and fever. HENT: Negative for congestion and rhinorrhea. Respiratory: Negative for cough and shortness of breath. Cardiovascular: Negative for chest pain and palpitations. Gastrointestinal: Negative for abdominal pain, diarrhea, nausea and vomiting. Genitourinary: Negative for difficulty urinating and dysuria. Musculoskeletal: Positive for arthralgias and joint swelling. Negative for back pain and neck stiffness. Skin: Negative for color change and pallor. Neurological: Negative for dizziness and headaches. Psychiatric/Behavioral: Negative for confusion, hallucinations and suicidal ideas. Physical Exam BP 143/105 Pulse 105 Temp (Src) 97.9 (Oral) Resp 16 Ht 5' 9 (1.75m) Wt 199 lb (90.3kg) SpO2 100% BMI 29.37 kg/(m2). O2 Therapy: Room Air Physical Exam Constitutional: He is oriented to person, place, and time. He appears well-developed and well-nourished. No distress. HENT: Head: Normocephalic and atraumatic. Right Ear: External ear normal. Left Ear: External ear normal. Eyes: EOM are normal. Cardiovascular: Normal rate, regular rhythm and normal heart sounds. Exam reveals no gallop and no friction rub. No murmur heard. Pulmonary/Chest: Effort normal and breath sounds normal. No respiratory distress. He has no wheezes. Abdominal: Soft. Bowel sounds are normal. He exhibits no distension. There is no tenderness. Musculoskeletal: He exhibits edema, tenderness and deformity. Left ankle external rotation deformity. Foot is pale and cooler to touch. + Skin tenting and hematoma over medial malleolus. No obvious skin break. Sensation is equal in both extremities. +DP pulse, unable to doppler PT pulse Neurological: He is alert and oriented to person, place, and time. Skin: Skin is warm and dry. He is not diaphoretic. Nursing note and vitals reviewed. Diagnostic Testing ED Labs Ordered and Reviewed - No data to display Procedures ED Course / Clinical Impression ED Course as of May 27 1557 Others' Documentation ThuMay 27, 2019 0844 Attending Note I evaluated the patient and personally participated in the zuñiga components. I personally saw and examined the patient. I reviewed the resident's note. I agree with the resident's assessment and plan unless otherwise noted. I was present for the zñuiga portions of the procedure. HPI: 44 year old with DM, substance abuse, here w concern for L ankle injury. 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 Vitals BP 143/105 Pulse (!) 105 Temp 36.6 ?C (97.9 ?F) (Oral) Resp 16 Ht 175.3 cm (5' 9) Wt 90.3 kg (199 lb) SpO2 100% BMI 29.39 kg/m? Gen NAD Calm verbal Neuro NCAT PERRLA EOMI no focal neuro deficits RICCI CVS RRR Pulm CTAB Ext L ankle with deformity/suspect fracture/dislocation with eversion and lateral rotation/displacement. Cap refill approx 4 sec in toes, foot is cool, DP present. Approx 2cm irregular ecchymosis over site of tenting medial malleolus, no obvious open wound. Medical decision makin44 year old here w concern for ankle fracture/dislocation. Afebrile. Tachycardic. Hyperglycemic in route. Suspect early open or impending open fracture. Ortho consulted for emergent reduction. Will cover w antibiotics. Aleida Parnell MD 8:44 AM [CL] ED Course User Index [CL] Aleida Parnell MD Clinical Impressions as of May 27 1557 Type I or II open displaced fracture of medial malleolus of left tibia, initial encounter Closed fracture of distal end of left fibula, unspecified fracture morphology, initial encounter Type I or II open fracture dislocation of left ankle, initial encounter MDM / Disposition / Plan 44-year-old male with history of Charcot joint and 1 diabetes presents with left ankle deformity. Patient is tachycardic. Patient is nontoxic appearing. Patient's deformity is consistent with a fracture/dislocation. There is a possible open fracture therefore patient is given 1 g Ancef. Bedside ankle and foot x-ray demonstrated lateral dislocation of the left talus, displaced distal fibular fracture, displaced medial malleolar fracture. Orthopedic surgery consulted. demonstrate glucose of 4:30. Patient states this is his baseline. Patient given 1 L normal saline. Repeat sugar is 336. Orthopedic surgery performed a hematoma block and reduced and splinted patient's ankle. Patient will be scheduled for surgery in 1 week. Per orthopedic physician, patient is stable to be discharged home. Patient is concerned that he will not be able to ambulate with crutches, especially since he lives in the basement and has multiple stairs to climb. I discussed this concern with orthopedic surgery who states patient should be discharged home with wheelchair. There are no wheel chairs available to be given to patient on discharge. Patient evaluated by PT who recommend patient be admitted to a SNF. Patient will be admitted medically until SNF placement can be obtained. Patient admitted to the floor in stable condition. Disposition The patient was admitted. Admitted to Regular Nursing Floor. Condition at disposition is stable. SIGNATURE: DO Adela Maguire (Res) DO Shabnam Resident 05/27/19 1600 Aleida Parnell MD 05/29/19 1455 Normal [facility] HISTORY PHYSICALon HISTORY PHYSICAL HNO ID: [id number] Author: Martina Wood Service: Hospital Medicine Author Type: Nurse Practitioner Type: HANDP Filed: 05/27/2019 3:45 PM Note Text: ----- Attestation signed by Clinton Banda at 05/27/2019 5:15 PM Seen and examined by me. 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 Patient here for placement and pain control. Does not recall traumatic event but with his drug abuse he admits he may have blacked out. Was hoping to get cocaine and not fetanyl. Regardless, we do need to be very careful with pain meds. ----- INTERNAL MEDICINE HANDP EXAMINATION SERVICE DATE: 05/27/2019 SERVICE TIME: 1600 PRIMARY CARE PHYSICIAN: Elizabeth Nelson DO Subjective CHIEF COMPLAINT: Deformed left ankle HISTORY OF PRESENT ILLNESS: Mr. Cantor is a 44 year old male with PMH of DM1, charcot joint of right ankle/foot, IVDU, HTN, gastroparesis presents to the ED from home due to left ankle deformity. Pt states he woke up this am and tried to stand up and saw that his left ankle was deformed and painful. Pt was unable to ambulate or stand on it. Of note, pt has charcot joint of right foot/ankle. It is deformed. Of note, pt did IV fentanyl yesterday. He denies any trauma. He denies that he fell and hurt it. Pt denies any cp, sob, n/v/d, fever or chills. He received pain medication in the ED and currently is not having any pain in left ankle. Pt smokes 1PPD. He drinks alcohol socially. He does IV drugs. In ED, pt xray foot/ankle: Lateral dislocation of the left talus in relation to the left tibia. Displaced distal fibular shaft fracture.Displaced medial malleolar fracture. Possible skin laceration along the distal medial tibia which suggesting possible open fracture component. Pt was given ancef, morphine and IVF in the ED. Na: 133, glucose: 430, BUN: 19, VS: 36.6, 107, 16, 145/86, 95% on room air. Pt not in any respiratory distress. 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 - Pancreatitis 08/2014 - Tobacco abuse 05/27/2019 PAST SURGICAL HISTORY Procedure Laterality Date - NONE FAMILY HISTORY Problem Relation Age of Onset - Hypertension Mother - Diabetes Mother - Stroke Mother - Heart Mother CHF - Cataract Mother - Hypertension Father - COPD Father - Emphysema Father Social History Tobacco Use - Smoking status: Current Every Day Smoker Packs/day: 1.00 Types: Cigarettes - Smokeless tobacco: Never Used Substance Use Topics - Alcohol use: Yes Comment: socially - Drug use: Yes Types: Cocaine, Amphetamines Comment: hist of cocaine and marajuana use, fentanyl MEDICATIONS: Medications Prior to Admission: lisinopril (ZESTRIL, PRINIVIL) 10 mg tablet Take 1 tablet by mouth once daily for 15 days. Disp: 15 tablet Rfl: 0 05/26/2019 ibuprofen (MOTRIN) 600 mg tablet Take 1 tablet by mouth every 8 hours as needed. (Patient taking differently: Take 600 mg by mouth once daily as needed for Pain. ) Disp: 21 tablet Rfl: 0 insulin detemir U-100 (LEVEMIR FLEXTOUCH U-100 INSULN) 100 unit/mL (3 mL) inpn injection 30 units sc at breakfast, 30 units at bedtime. (Patient taking differently: 20 Units twice daily. ) Disp: Rfl: insulin lispro (HUMALOG KWIKPEN INSULIN) 100 unit/mL inpn Inject 20 Units subcutaneously three times daily before meals. (Patient taking differently: Inject 14 Units subcutaneously three times daily before meals. With sliding scale ) Disp: Rfl: 05/22/[address] (PROTONIX) 40 mg tablet Take 40 mg by mouth once daily. Disp: Rfl: 05/26/2019 Lancets lancets Use as instructed Disp: 100 Each Rfl: 11 Taking Insulin Dudley, Disposable, (BD ULTRAFINE III MINI PEN) 31 gauge x 3/16 ndle USE WITH INSULIN PENS 4TIMES DAILY Disp: 400 Each Rfl: 3 Taking blood sugar diagnostic (ONETOUCH ULTRA TEST) test strip CHECK BLOOD SUGARS 6 TIMES DAILY Disp: 200 Strip Rfl: 3 Taking DULoxetine (CYMBALTA) 30 mg capsule Take 1 capsule by mouth once daily. (Patient taking differently: Take 60 mg by mouth twice daily. ) Disp: Rfl: 0 05/25/2019 pregabalin (LYRICA) 150 mg capsule Take 150 mg by mouth as directed. Disp: Rfl: Taking ALLERGIES No Known Allergies COMPLETE REVIEW OF SYSTEMS: all other systems reviewed and are negative Objective PHYSICAL EXAM: Patient Vitals for the past 24 hrs: BP Temp Temp src Pulse Resp SpO2 Height Weight 05/27/19 1121 145/86 ? ? (!) 107 16 95 % ? ? 05/27/19 1000 133/89 ? ? (!) 95 16 96 % ? ? 05/27/19 0900 124/90 ? ? (!) 100 16 100 % ? ? 05/27/19 0803 143/105 36.6 ?C (97.9 ?F) Oral (!) 105 16 100 % 175.3 cm (5' 9) 90.3 kg (199 lb) Body mass index is 29.39 kg/m?. GENERAL: Alert, no distress, cooperative SKIN: Skin color, texture, turgor normal. No rashes or lesions. OROPHARYNX: Lips, mucosa, and tongue are normal.Teeth and gums, normal. Oropharynx normal. NECK: No jugulovenous distention, No carotid bruits, Carotid pulse normal contour, Supple LUNGS: Lungs clear to auscultation. Good diaphragmatic excursion. CARDIAC: Normal S1 and S2; no rubs, murmurs, or gallops ABDOMEN: Abdomen soft, non-tender, BS normal, No masses or organomegaly EXTREMETIES: Extremities normal, no deformities, edema, clubbing or skin discoloration. Good capillary refill., No ulcers, large left ankle/foot splint, unable to see foot/ankle, toes cool to touch NEURO: Alert, oriented X 3, Gait normal. Non-focal. Reflexes normal and symmetric. Sensation grossly intact., Cranial nerves II-XII intact PULSES: 2+ radial, 2+ carotid DATA: Diagnostic tests reviewed for today's visit: Most recent labs and imaging results. WBC (thou/cmm) Date Value 05/27/2019 6.65 RBC (mil/cmm) Date Value 05/27/2019 5.44 Hemoglobin (g/dL) Date Value 11/11/2016 14.2 HGB (g/dL) Date Value 05/27/2019 15.7 Hematocrit (%) Date Value 05/27/2019 48.6 MCV (fl) Date Value 05/27/2019 89.3 MCH (pg) Date Value 05/27/2019 28.9 MCHC (%) Date Value 05/27/2019 32.3 RDW-CV (%) Date Value 11/11/2016 13.7 Platelet Count (thou/cmm) Date Value 05/27/2019 161 MPV (fl) Date Value 05/27/2019 12.4 (H) Glucose (mg/dL) Date Value 05/27/2019 430 (HH) BUN (mg/dL) Date Value 05/27/2019 19 (H) Creatinine (mg/dL) Date Value 05/27/2019 0.79 Sodium (mEq/L) Date Value 05/27/2019 133 (L) Potassium (mEq/L) Date Value 05/27/2019 4.4 Chloride (mEq/L) Date Value 05/27/2019 92 (L) CO2 (mEq/L) Date Value 05/27/2019 30 Protein, Total (g/dL) Date Value 11/11/2016 7.8 Albumin (g/dL) Date Value 11/11/2016 3.9 Calcium (mg/dL) Date Value 05/27/2019 9.7 Alkaline Phosphatase (U/L) Date Value 11/11/2016 162 (H) Bilirubin, Total (mg/dL) Date Value 11/11/2016 0.4 AST (U/L) Date Value 11/11/2016 44 (H) ALT (U/L) Date Value 11/11/2016 52 (H) Hep C Antibody IA (no units) Date Value 11/23/2009 Positive (A) Assessment/Plan Active Problems: Left ankle joint deformity/fracture POA: Yes Assessment AND Plan: Ortho consulted and saw pt in ED: recommend ice, elevate. Will follow as outpatient for surgical fixation of left ankle fracture, pain control, antinausea, PT Patient will need to go to rehab due inability to ambulate stairs in home Hyperglycemia with DM1 POA: Yes Assessment AND Plan: accu check ac/hs, ssi, c/w home meds, check a1c H/O Charcot's joint of right foot POA: Yes IVDU (intravenous drug user) POA: Yes Assessment AND Plan: c/s SW, check urine drug screen Hypertension POA: Yes Assessment AND Plan: stable, c/w home meds History of diabetic gastroparesis POA: Yes Tobacco abuse POA: Yes Assessment AND Plan: cessation education given Medication and Non-Pharmacologic VTE Prophylaxis/Anticoagulant s VTE Prophylaxis: VTE prophylaxis appropriate SIGNATURE: Martina Wood APRN.CNP PATIENT NAME: Tori Cantor DATE: May 27, 2019 TIME: 3:34 PM PAGER/CONTACT #: [phone] Normal [facility] Hemogramon 05-27-2019 Erythrocyte distribution width (RBC) [Ratio] 12.3 % Normal 11.6-14.4 [facility] Comment on above: Performed By: #### C BC1 #### [address] [address] Hematocrit (Bld) [Volume fraction] 48.6 % Normal 40.1-51.0 [facility] Comment on above: Performed By: #### C BC1 #### [facility] [address] [place], [place] [address] Hemoglobin (Bld) [Mass/Vol] 15.7 g/dL Normal 13.7-17.5 [facility] Comment on above: Performed By: #### C BC1 #### [facility] [address] [place] [address] MCH (RBC) [Entitic mass] 28.9 pg Normal 25.7-32.2 [facility] Comment on above: Performed By: #### C BC1 #### [facility] [address] [place] [address] MCHC (RBC) [Mass/Vol] 32.3 % Normal 32.3-36.5 [facility] Comment on above: Performed By: #### C BC1 #### [facility] [address] [place] [address] MCV (RBC) [Entitic vol] 89.3 fL Normal 83.2-95.6 [facility] Comment on above: Performed By: #### C BC1 #### [facility] [address] [place] [address] Platelet mean volume (Bld) [Entitic vol] 12.4 fL High 8.7-12.0 [facility] Comment on above: Performed By: #### C BC1 #### [facility] [address] [place], [place] [address] Platelets (Bld) [#/Vol] 161 thou/cmm Normal 141-365 [facility] Comment on above: Performed By: #### C BC1 #### [facility] [address] [place], [place] [address] RBC (Bld) [#/Vol] 5.44 mil/cmm Normal 4.63-6.08 [facility] Comment on above: Performed By: #### C BC1 #### [facility] [address] [place], [place] [address] RDW SD 40.0 fl Normal 36.1-45.8 [facility] Comment on above: Performed By: #### C BC1 #### [facility] [address] [place], [place] [address] WBC (Bld) [#/Vol] 6.65 thou/cmm Normal 4.23-9.07 [facility] Comment on above: Performed By: #### C BC1 #### [facility] [address] [place], [place] [address] Hgb A1con 05-27-2019 HbA1c (Bld) [Mass fraction] 255 mg/dl Normal [facility] Comment on above: Performed By: #### H A1C #### [facility] [address] [place], [place] [address] HbA1c (Bld) [Mass fraction] 10.5 % High 4.2-6.3 [facility] Comment on above: Result Comment: Meth od is National Glycohemoglobin Standardization Program (NGSP) compliant. Performed By: #### H A1C #### [place] [address] PLAN OF CAREon 05-27-2019 PLAN OF CARE HNO ID: [id number] Author: Gareth Gregorio (Remedial Project Manager) Service: Pharmacy Author Type: Shot Polisher And Inspector Type: Plan of Care Filed: 05/27/2019 12:28 PM Note Text: MEDICATION HISTORY Patient Name:Liliam Cantor : 1975 Source of history:Patient: Reliability of source: Appears reliable, clearly identified: Medication name and Medication dose and Pharmacy records: [facility] [phone] (primary) Medication Nonadherence Identified: No barriers noted The above information represents the best possible medication history: Yes - Pt. states his meds are not regimented now, because he was incarcerated for awhile. Additional comments: [id number] Medication List Adjustments: Medication Regimen Changes: insulin detemir U-100 (LEVEMIR FLEXTOUCH U-100 INSULN) 100 unit/mL (3 mL) inpn injection 30 units sc at breakfast, 30 units at bedtime. Patient taking differently: 20 Units twice daily. insulin lispro (HUMALOG KWIKPEN INSULIN) 100 unit/mL inpn Inject 20 Units subcutaneously three times daily before meals. Patient taking differently: Inject 14 Units subcutaneously three times daily before meals. With sliding scale DULoxetine (CYMBALTA) 30 mg capsule Take 1 capsule by mouth once daily. Patient taking differently: Take 60 mg by mouth twice daily. RX reported 60 mg once a day, but pt. states he takes BID PRN. 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 05/26/2019 Yes ibuprofen (MOTRIN) 600 mg tablet Take 1 tablet by mouth every 8 hours as needed. Patient taking differently: Take 600 mg by mouth once daily as needed for Pain. Yes insulin detemir U-100 (LEVEMIR FLEXTOUCH U-100 INSULN) 100 unit/mL (3 mL) inpn injection 30 units sc at breakfast, 30 units at bedtime. Patient taking differently: 20 Units twice daily. Yes insulin lispro (HUMALOG KWIKPEN INSULIN) 100 unit/mL inpn Inject 20 Units subcutaneously three times daily before meals. Patient taking differently: Inject 14 Units subcutaneously three times daily before meals. With sliding scale 05/22/[address] (PROTONIX) 40 mg tablet Take 40 mg by mouth once daily. 05/26/2019 Yes Lancets lancets Use as instructed Yes Insulin Dudley, Disposable, (BD ULTRAFINE III MINI PEN) 31 gauge x 3/16 ndle USE WITH INSULIN PENS 4TIMES DAILY Yes blood sugar diagnostic (ONETOUCH ULTRA TEST) test strip CHECK BLOOD SUGARS 6 TIMES DAILY Yes DULoxetine (CYMBALTA) 30 mg capsule Take 1 capsule by mouth once daily. Patient taking differently: Take 60 mg by mouth twice daily. 05/25/2019 Yes pregabalin (LYRICA) 150 mg capsule Take 150 mg by mouth as directed. Yes Gareth Gregorio (Remedial Project Manager) pager [phone] phone [phone] May 27, 2019 12:18 PM Normal [facility] THERAPY NTon 05-27-2019 THERAPY NT HNO ID: [id number] Author: Lucho AaronPtRosalina Sainz Service: Physical Therapy Author Type: Physical Therapist Type: Therapy (PT/OT/Speech/Resp) Filed: 05/27/2019 2:43 PM Note Text: Physical Therapy Evaluation SERVICE DATE: 05/27/2019 SERVICE TIME: 1347 to 1403 ROOM: -ED Recommended Discharge Disposition: Subacute/SNF Recommended Discharge Disposition Comments: Patient below baseline functioning of ambulating household distances with a cane. Patient needed moderate assistance with wheeled walker to hop several feet. Patient presenting with safety deficits with ambulation and would benefit from skilled therapy to maximise independence and safety with bed mobiliy and ambulation. Patient currently requiring min-mod assistance with functional mobility and unsafe to go home. Justification For Post Acute Needs: Cognition intact;Good sitting tolerance;Motivated;Willi ng to participate;Anticipate that patient will require daily (5x/wk) skilled therapy in a post-acute facility setting at the time of acute hospital discharge PT Recommendations to Nursing: Ambulate with device;To bathroom;OOB for Meals;With assist of 1 person Device: Wheeled Walker PT 6 Clicks Score: 15 Precautions/Activity Restrictions: Fall Risk;Weight Bearing Restrictions Extremity With Weight Bearing Restricted: Left Lower Extremity Left Lower Extremity Weight Bearing Status: NWB ASSESSMENT : This patient was admitted for fall at home, has the past medical history of DM, HTN, DKA, charcot Right foot impacting current functional level, as well as the social factors complicating the discharge of multiple steps in home without assistance. This patient is below baseline functioning of ambulating household distances with cane and will benefit from continued skilled therapy in the hospital for treatment of the following body systems/impairments: musculoskeletal, integumentary, cardiopulmonary, neuromuscular (gait, transfers, bed mobility, balance, safety and strengthening). Patient presenting with safety deficits with all functional mobility and will benefit from continued skilled therapy. Patient Disposition at Start of Session: Supine in Bed;Call Hines in Reach Patient Disposition at End of Session: Supine in Bed;Call Hines in Reach Tolerance Limited By Fatigue Physical Therapy Problem List: Pain;Safety Deficits;Decreased Activity Tolerance;Decreased Range Of Motion;Decreased Strength;Functional Mobility Impairment;Balance Impaired Patient /Caregiver Goals: Go To Rehab Goals for Plan of Care: Able to perform HEP with: Independent Transfer supine to/from sit with: Contact Guard Assistance Transfer sit to/from stand with: Contact Guard Assistance Rehab Potential: Good PLAN: Treatment Frequency (times per week): 5(2-4) Current admission Treatment Interventions: Education;Energy Conservation Training;Strengthening;Fu nctional Mobility Training;Balance Training Plan of Care developed with: Patient TREATMENT INTERVENTIONS: Therapy Diagnosis: Reduced mobility-other;Muscle Weakness (generalized);Unsteadines s on feet Interventions Provided: Evaluation;Therapeutic Activity (33953);Gait Training (72770) $ Evaluation-Moderate (96070) Billed Units: 1 unit History and examination of body systems see assessment section above. This patient?s clinical presentation is evolving. The patient required a moderate complexity evaluation. Therapeutic Activity (83324) Treatment Minutes: 3 0 units Skilled Intervention(s): Instructed patient in supine to and from sit pushing with upper extremities to sit up. Verbal and tactile cues provided for patient to slide lower extremities to edge of bed. Patient required assistance with left lower extremity to edge of bed and assistance at trunk to complete transition safely. Patient needed assistance with left lower extremity back into bed to return to supine position. Instruction in sit to and from stand technique with proper hand placement and body positioning at edge of bed/chair. Instructed patient to slide left foot forward prior to pushing from bed with both hands to avoid bearing weight through left foot. Instructed patient to push from bed with multiple verbal cues to avoid using walker to stand. Educated patient on importance of pushing from bed to improve safety with transition into standing due to walker being an unsteady surface to push from. Gait Training (01257) Treatment Minutes: 2 0 units Skilled Intervention(s): Instruction in sit to stand technique with proper hand placement and body positioning at edge of bed/chair, Instruction in stand to sit technique with LE's touching chair/bed and reaching back for surface, Instruction in use of equipment, cues for sequence and pattern with wheeled walker. Instructed patient to put most weight through bilateral upper extremities on walker and through right foot while bending left knee to avoid bearing weight through left foot. Instructed patient to push walker forward and then advance legs by hopping on right foot. Patient required assistance for balance and steering walker for improved safety with ambulation. Patient only able to ambulate to door of room before becoming short of breath and needing to return to edge of bed. Instructed patient to return to sitting position at edge of bed by sliding left foot forward and slowly lowering self to edge of bed by reaching back with one hand at a time off walker. Total Timed Code Treatment Minutes: 5 Total Treatment Time (minutes): 16 SUBJECTIVE: Current Hospital Course: Chart reviewed; 44 year old male presents from fall at home. X-rays indicated lateral dislocation of left talus, displaced distal fibular shaft fracture, displaced medial malleolar fracture, with possible skin laceration on distal medial tibia suggesting open fracture. Non weight bearing on left lower extremity. Reason for Physical Therapy Consult : eval and treat Relevant Past Medical History: DM, DKA, HTN, chracot Right foot Patient Report: Patient agreeable to therapy session. Patient denied pain during session, however reported increased anxiety about using walker to ambulate due to pain in right foot. Patient very short of breath after short ambulation distance. Home Environment Patient Lives With: Family(elderly father and aunt ) Assistance Available: PRN Entry To Home: Stairs;With Rail Number Of Stairs Into Home: 3 Number Of Stairs To Bed/Bath: 13 Stairs to Bed/Bath with: Unilateral Rail Tub/Shower Type: walk in shower Laundry: patient completes Equipment Owned: Cane;Wheeled Walker;Rollator Prior Functional Level: Within Functional Limits Prior Functional Level Comments: Pt reports using primarily using cane at baseline due to decreased mobility of right foot at baseline due to diagnosis of charcot foot. Patient reported needing hel with ADL's, however lives with elderly father and aunt who are unable to provide assistance. OBJECTIVE: Range of Motion: WFL Strength: Lower Extremity Comments Right Lower Extremity Strength Comments: 4-/5 Left Lower Extremity Strength Comments: 3+/5 CURRENT FUNCTIONAL STATUS: Current Functional Mobility Assist Level Additional Information Rolling Supine to Sit Minimal Assistance Sit to Supine Minimal Assistance Scooting Minimal Assistance Sit to Stand Minimal Assistance Stand to Sit Minimal Assistance Bed to Chair Toilet/Commode Gait Moderate Assistance Gait Device: Wheeled Walker Gait Distance (feet): 6ft Stairs Curb Step Car Transfer Gait Deviations Left Lower Extremity: (NWB LLE) General Gait Deviations: Argelia decreased;Difficulty changing direction/turning;Non-fun ctional gait speed Balance: Static Sitting;Static Standing;Dynamic Standing Static Sitting Balance: Good Able to maintain balance against moderate resistance Static Standing Balance: Fair Able to stand unsupported without UE support and without LOB for 1 - 2 min Dynamic Standing Balance: Poor+ Able to stand with Min A and reach ipsilaterally, unable to weight shift Activity Tolerance: Standing Activity Standing Activity: several hops with wheeled walker from bed to door in room. Standing Activity Tolerance (in minutes): 2 JH-HLM: 5: Standing (1 or more minutes) Please see discipline specific clinical documentation flowsheet for complete details for this therapy evaluation/treatment. SIGNATURE: Lucho Sainz PT PATIENT NAME: Tori Cantor DATE: May 27, 2019 TIME: 2:27 PM Normal [facility] Urine Drug Screenon 05-27-20 19 Urine Amphetamine see below Normal Non-Detected [facility] Comment on above: Result Comment: Dete cted (unconfirmed) Performed By: #### U DRG2 #### [place] [address] Urine PCP Non-detected Normal Non-Detected [facility] Comment on above: Performed By: #### U DRG2 #### [place] [address] Urine Barbiturates Non-detected Normal Non-Detected [facility] Comment on above: Performed By: #### U DRG2 #### [facility] [address] [place] [address] Urine Benzodiazepine Non-detected Normal Non-Detected [facility] Comment on above: Performed By: #### U DRG2 #### [place] [address] Urine Cocaine Metab Non-detected Normal Non-Detected [facility] Comment on above: Performed By: #### U DRG2 #### [address] [address] Urine Opiate see below Normal Non-Detected [facility] Comment on above: Result Comment: Dete cted (unconfirmed) Performed By: #### U DRG2 #### [facility] [address] [place], [place] [address] Urine THC see below Normal Non-Detected [facility] Comment on above: Result Comment: Dete cted (unconfirmed) Urine Drug Cutoff Levels Urine Amphetamine 500 ng/mL Urine Barbiturate 200 ng/mL Urine Benzodiazepines 200 ng/mL Urine Cocaine 150 ng/mL Urine Phencyclidine (PCP) 25 ng/mL Urine Opiates 300 ng/mL Urine THC 50 ng/mL The results of these analytes are unconfirmed and reported qualitatively as detected or non-detected relative to the cutoff value. Detected results indicate the sample is likely to contain the analyte. Non-detected results indicate that either the sample does not contain the analyte or it is present in concentrations below the cutoff level. This drug screen should be used for medical diagnostic purposes only. Performed By: #### U DRG2 #### [facility] [address] [place], [place] [address] XR ANKLE 3V AP/LAT/OBL LTon 05-27-2019 XR ANKLE 3V AP/LAT/OBL LT * * *Final Report* * * DATE OF EXAM: May 27 2019 10:46AM [id number] - XR ANKLE 3V AP/LAT/OBL LT / PROCEDURE REASON: Post-reduction assessment * * * * Physician Interpretation * * * * EXAM TITLE: LEFT ANKLE 3 VIEWS DATE: 05/27/2019 10:17. COMPARISON: Left ankle 3 views 05/27/2019 08:45. CLINICAL INDICATION/HISTORY: Postreduction assessment. TECHNIQUE: Portable AP, oblique, and lateral views were obtained of the left ankle. FINDINGS: There is splint material present which obscures fine bony detail. There has been interval reduction of the tibiotalar dislocation since the prior exam. This probable mild lateral subluxation of the talus in relationship to the tibia. Mildly displaced medial malleolar fractures and distal left fibular fracture again noted. A fracture involving small portion of the posterior malleolus is difficult to entirely excluded on the lateral view. IMPRESSION: Interval reduction of dislocation with probable mild residual subluxation of the tibiotalar joint. Mildly displaced medial malleolar fractures of distal left fibular fracture again noted. Possible fracture involving a small portion posterior malleolus. Av Specialist: PSCB Transcribe Date/Time: May 27 2019 11:11A Dictated by : KARIN EATON MD This examination was interpreted and the report reviewed and electronically signed by: KARIN EATON MD on May 27 2019 11:23AM EST Normal [facility] XR ANKLE 3V AP/LAT/OBL LT * * *Final Report* * * DATE OF EXAM: May 27 2019 9:01AM [id number] - XR ANKLE 3V AP/LAT/OBL LT / PROCEDURE REASON: Dislocation, ankle * * * * Physician Interpretation * * * * EXAM TITLE: LEFT FOOT 3 VIEWS and LEFT ANKLE 3 VIEWS DATE:05/27/2019. COMPARISON: No prior available. CLINICAL INDICATION/HISTORY: Fracture, foot. Dislocation, ankle. TECHNIQUE: AP, oblique, and lateral views were obtained of the left foot. AP, oblique, and lateral views were obtained of the left ankle. RESULT: Left foot: There is dislocation of the talus and fractures involving the distal fibula and malleolus as described below. There is no other evidence of acute fracture or dislocation. No destructive osseous lesion. The visualized joint spaces other than the ankle joint are well preserved. No evidence of cortical erosion. Left ankle: There is lateral dislocation of the talus in relation to the tibia. There is acute fracture involving the distal left fibular shaft with superior and lateral displacement of the distal fibula. There is transverse fracture involving the medial malleolus which is significantly displaced from the distal tibia but still adjacent to the talus. There is skin irregularity overlying the distal medial tibia which could represent evidence of an open fracture. No other evidence of acute fracture or dislocation. IMPRESSION: Lateral dislocation of the left talus in relation to the left tibia. Displaced distal fibular shaft fracture. Displaced medial malleolar fracture. Possible skin laceration along the distal medial tibia which suggesting possible open fracture component. Av Specialist: BEN Transcribe Date/Time: May 27 2019 9:33A Dictated by : KARIN EATON MD This examination was interpreted and the report reviewed and electronically signed by: KARIN EATON MD on May 27 2019 9:40AM EST Normal [facility] XR FOOT 3V AP/LAT/OBL LTon 1 07-27-2018 XR FOOT 3V AP/LAT/OBL LT * * *Final Report* * * DATE OF EXAM: May 27 2019 9:01AM [id number] - XR FOOT 3V AP/LAT/OBL LT / PROCEDURE REASON: Fracture, foot * * * * Physician Interpretation * * * * EXAM TITLE: LEFT FOOT 3 VIEWS and LEFT ANKLE 3 VIEWS DATE:05/27/2019. COMPARISON: No prior available. CLINICAL INDICATION/HISTORY: Fracture, foot. Dislocation, ankle. TECHNIQUE: AP, oblique, and lateral views were obtained of the left foot. AP, oblique, and lateral views were obtained of the left ankle. RESULT: Left foot: There is dislocation of the talus and fractures involving the distal fibula and malleolus as described below. There is no other evidence of acute fracture or dislocation. No destructive osseous lesion. The visualized joint spaces other than the ankle joint are well preserved. No evidence of cortical erosion. Left ankle: There is lateral dislocation of the talus in relation to the tibia. There is acute fracture involving the distal left fibular shaft with superior and lateral displacement of the distal fibula. There is transverse fracture involving the medial malleolus which is significantly displaced from the distal tibia but still adjacent to the talus. There is skin irregularity overlying the distal medial tibia which could represent evidence of an open fracture. No other evidence of acute fracture or dislocation. IMPRESSION: Lateral dislocation of the left talus in relation to the left tibia. Displaced distal fibular shaft fracture. Displaced medial malleolar fracture. Possible skin laceration along the distal medial tibia which suggesting possible open fracture component. Av Specialist: PSCB Transcribe Date/Time: May 27 2019 9:33A Dictated by : KARIN EATON MD This examination was interpreted and the report reviewed and electronically signed by: KARIN EATON MD on May 27 2019 9:40AM EST [facility] ED NOTEon 11-25-2018 ED NOTE HNO ID: [id number] Author: Shruthi Hogan) MATT Augustin Service: ? Author Type: Registered Nurse Type: ED Notes Filed: 11/24/2018 11:56 PM Note Text: Pt provided walker and R compression boot. Pt. Educated on use. Discussed discharge instructions with pt including new prescriptions and importance of follow up with PCP. Education provided including s/s to return to ER. Pt verbalized understanding. Pt resp even and unlabored with no s/s of distress noted. Pt able to speak in complete sentences without difficulty. All questions answered and pt denies any needs at this time. Pt ambulatory with steady gait on departure. [facility] XR FOOT 3V AP/LAT/OBL RTon 0 11-25-2018 XR FOOT 3V AP/LAT/OBL RT * * *Final Report* * * DATE OF EXAM: Nov 24 2018 10:00PM [id number] [id number] - XR FOOT 3V AP/LAT/OBL RT / PROCEDURE REASON: Bone pain, foot * * * * Physician Interpretation * * * * RIGHT FOOT X-RAY SERIES HISTORY: Bone pain, foot TECHNIQUE: AP, lateral and oblique views. COMPARISON: 11/11/2016 RESULT: There are neuropathic changes/Charcot arthropathy with fragmentation of the navicular bone and tarsal bones. There is also been remodeling the anterior aspect of the talus which has progressed in comparison to prior study. There has been progressive fragmentation of the navicular, cuneiform and cuboid bones. Pes planus is noted. The phalanges and metatarsal bones appear relatively unremarkable. IMPRESSION: Progression in Charcot arthropathy with greater fragmentation and joint space loss involving the tarsal bones. Av Specialist: BEN Transcribe Date/Time: Nov 24 2018 10:54P Dictated by : MARIE WEISS MD This examination was interpreted and the report reviewed and electronically signed by: MARIE WEISS MD on Nov 24 2018 11:01PM EST [id number] [facility] ED NOTEon 11-24-2018 ED NOTE HNO ID: [id number] Author: Shruthi AaronRn) MATT Augustin Service: ? Author Type: Registered Nurse Type: ED Notes Filed: 11/24/2018 8:08 PM Note Text: Pt. Declined ice and R ankle being propped on pillow. [facility] ED NOTE HNO ID: [id number] Author: Shruthi Hogan) MATT Augustin Service: ? Author Type: Registered Nurse Type: ED Notes Filed: 11/24/2018 8:05 PM Note Text: Pt. Arrived via EMS from [facility] d/t increase pain in R ankle. Pt. 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 Pt. States pain is chronic and today at [facility] I think I rushed too quickly down the stairs and my pain increased. Pt states Im not sure if I chipped a bone or not Pt. States since Thursday last week has not been taking BP medications d/t [facility] not giving him the medication, pt. States takes 10 mg lisinopril. Pt. Respirations even and unlabored. Pt. Does not appear in any distress. Plan of care -Monitor Patient's Vital Signs for changes in condition -Monitor patient for changes in pain -Maintain patient safety and privacy -Provide comfort measures-Call light in place Siderails up, bed in locked and low position [facility] ED NOTE HNO ID: [id number] Author: Shruthi AaronRn) MATT Augustin Service: ? Author Type: Registered Nurse Type: ED Notes Filed: 11/24/2018 7:58 PM Note Text: Bed: ED-25 Expected date: Expected time: Means of arrival: Comments: Triage pt [facility] ED PROV NOTEon 11-24-2018 Protein mass conc HNO ID: [id number] Author: Angeles Deal) Marisela Service: Emergency Medicine Author Type: Physician Innovation Manager Type: ED Provider Notes Filed: 11/24/2018 11:34 PM Note Text: ED Provider Note Patient Name: Tori Cantor SERVICE DATE: 11/24/18 History Patient presents with: Ankle Pain patient comes in with right foot pain. He has a history of Charcot foot and chronic right foot and ankle pain. patient is in drug treatment at [facility] for the last week. He is a diabetic he is only on certain medications including his insulin. He goes to [facility] next week to be seen. He has a history of hypertension and is on lisinopril 10 mg but hasn't had that medication week because they have been given it to him. He comes today because he was walking back quickly to his room and just felt some increased pain in the bottom of the right foot. He states it's always swollen that's not new he got concerned maybe had a chip fracture for some reason in the bottom of his foot. Patient usually walks with a cane but his cane Broke when he was in halfway usually is on gabapentin and Cymbalta for pain and has not been on that in a week. Usually he also uses a Aircast boot normally but that is in the [facility] where he lives. PAST MEDICAL HISTORY Diagnosis Date - Diabetes (HCC) - DKA (diabetic ketoacidosis) (HCC) 08/2014 - Hypertension - Lactose intolerance 07/30/2016 - Pancreatitis 08/2014 PAST SURGICAL HISTORY Procedure Laterality Date - NONE FAMILY HISTORY Problem Relation Age of Onset - Hypertension Mother - Diabetes Mother - Stroke Mother - Heart Mother CHF - Cataract Mother - Hypertension Father - COPD Father - Emphysema Father Social History Tobacco Use - Smoking status: Current Every Day Smoker Packs/day: 0.50 Types: Cigarettes - Smokeless tobacco: Never Used Substance and Sexual Activity - Alcohol use: Yes Comment: socially - Drug use: No Comment: hist of cocaine and marajuana use - Sexual activity: Not on file ALLERGIES No Known Allergies Review of Systems Constitutional: Negative. Negative for fever. Musculoskeletal: Positive for gait problem. Right foot pain Skin: Negative. Psychiatric/Behavioral: Negative. Physical Exam BP 161/96 Pulse 90 Temp (Src) 98.2 (Oral) Resp 18 Ht 5' 9 (1.75m) Wt 195 lb (88.5kg) SpO2 98% BMI 28.78 kg/(m2). O2 Therapy: Room Air Physical Exam Constitutional: He is oriented to person, place, and time. He appears well-developed and well-nourished. No distress. HENT: Head: Normocephalic and atraumatic. Eyes: Pupils are equal, round, and reactive to light. EOM are normal. Neck: Normal range of motion. Neck supple. Pulmonary/Chest: Effort normal. Musculoskeletal: He exhibits tenderness. He exhibits no edema or deformity. Feet: Neurological: He is alert and oriented to person, place, and time. Skin: Skin is warm and dry. Psychiatric: He has a normal mood and affect. His behavior is normal. Judgment and thought content normal. Nursing note and vitals reviewed. Diagnostic Testing ED Labs Ordered and Reviewed - No data to display x-ray of the right ankle read by the radiologist IMPRESSION: Deformity of the navicular and talar head with severe degenerative changes of the included portions of the talonavicular and cuneiform and calcaneocuboid joints are again consistent with neuropathic changes. ?There is no identifiable acute ankle fracture, dislocation, radiopaque foreign body, soft tissue gas, or other acute radiographic abnormality. initially was thought by the nurse that this was an ankle issue but he really is complaining of foot pain on the bottom of his foot therefore an x-ray of the foot was ordered IMPRESSION: Progression in Charcot arthropathy with greater fragmentation and joint space loss involving the tarsal bones. Procedures ED Course / Clinical Impression he was given lisinopril 10 mg his normal blood pressure medicine that he's not had it in a Week, issues given a walker as she don't have case and he does have difficulty getting around is also given a walking boot as this is usually what he has but this is in [facility] and he is in drug rehabilitation this will give him comfort. Clinical Impressions as of Nov 24 2333 Right foot pain Charcot's joint of right foot H/O diabetes mellitus Essential hypertension History of drug abuse in remission MDM / Disposition / Plan MDM The patient was DISCHARGED: Counseled patient regarding radiology results AND suspected diagnosis AND need for follow-up. Discharged home with verbal and written instructions. They were instructed to return as needed for persistent or worsening symptoms or any new concerns. Given a prescription for the following medication(s): lisinopril, motrin Condition at time of disposition: stable SIGNATURE: ROGERIO Caruso) Marisela 11/24/182333 [facility] XR ANKLE 3V AP/LAT/OBL RTon 11-24-2018 XR ANKLE 3V AP/LAT/OBL RT * * *Final Report* * * DATE OF EXAM: Nov 24 2018 8:53PM MMX [id number] - XR ANKLE 3V AP/LAT/OBL RT / PROCEDURE REASON: Ankle pain, initial exam * * * * Physician Interpretation * * * * AP, LATERAL AND OBLIQUE VIEWS OF BOTH ANKLES 11/24/2018 8:53 PM HISTORY: 43 years Male Ankle pain, initial exam ankle pain, initial exam COMPARISON: None available RESULTS: See impression. IMPRESSION: Deformity of the navicular and talar head with severe degenerative changes of the included portions of the talonavicular and cuneiform and calcaneocuboid joints are again consistent with neuropathic changes. There is no identifiable acute ankle fracture, dislocation, radiopaque foreign body, soft tissue gas, or other acute radiographic abnormality. Av Specialist: PSCB Transcribe Date/Time: Nov 24 2018 8:54P Dictated by : QUIANA HAJI MD This examination was interpreted and the report reviewed and electronically signed by: QUIANA HAJI MD on Nov 24 2018 8:57PM EST [id number] [facility] Vital Signs Date Time Vital Sign Value Performing Clinician Facility 01-06-2025 18:07-0400 Diastolic blood pressure 60 mm[Hg] Dr. Jah Mas MD Work Phone: 8(081)399-801202 [place] [address] 01-06-2025 18:07-0400 Heart rate 92 /min Dr. Jah Mas MD Work Phone: 7(563)800-804192 [place] [address] 01-06-2025 18:07-0400 Inhaled oxygen flow rate 2 L/min Dr. Jah Mas MD Work Phone: 2(726)579-687192 [place] [address] 01-06-2025 18:07-0400 Respiratory rate 30 /min Dr. Jah Mas MD Work Phone: 9(595)177-776092 [place] [address] 01-06-2025 18:07-0400 SaO2% (BldA) [Mass fraction] 95 % Dr. Jah Mas MD Work Phone: 6(173)356-774992 [place] [address] 01-06-2025 18:07-0400 Systolic blood pressure 102 mm[Hg] Dr. Jah Mas MD Work Phone: 2(785)354-125892 [place] [address] 01-06-2025 17:17-0400 Body temperature 95.2 [degF] Dr. Jah Mas MD Work Phone: 4(480)110-722192 [place] [address] 01-06-2025 14:13-0400 Body height 175.[address] Jah Mas MD Work Phone: 0(774)306-286192 [place] [address] 01-06-2025 14:13-0400 Body mass index (BMI) [Ratio] 37.4 kg/m2 Dr. Jah Mas MD Work Phone: 0(003)324-409992 [place] [address] 01-06-2025 14:13-0400 Body weight [address] Jah Mas MD Work Phone: 1(874)208-052992 [place] [address] 12-07-2024 15:05-0400 Body height 175.[address] Jah Mas MD Work Phone: 6(222)141-221692 [place] [address] 12-07-2024 15:05-0400 Body mass index (BMI) [Ratio] 24 kg/m2 Dr. Jah Mas MD Work Phone: 5(641)237-199992 [place] [address] 12-07-2024 15:05-0400 Body weight 73.[address] Jah Mas MD Work Phone: [facility] 12-07-2024 15:05-0400 Diastolic blood pressure 94 mm[Hg] Dr. Jah Mas MD Work Phone: [facility] 12-07-2024 15:05-0400 Heart rate 111 /min Dr. Jah Mas MD Work Phone: [facility] 12-07-2024 15:05-0400 SaO2% (BldA) [Mass fraction] 93 % Dr. Jah Mas MD Work Phone: [facility] 12-07-2024 15:05-0400 Systolic blood pressure 146 mm[Hg] Dr. Jah Mas MD Work Phone: [facility] 09-01-2024 14:37-0500 Body height 180.3 cm Lianet Silvestre 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 Work Phone: [facility] 09-01-2024 14:37-0500 Body mass index (BMI) [Ratio] 22.75 kg/m2 Lianet Marteir 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 Work Phone: [facility] 09-01-2024 14:37-0500 Body temperature 98.01 [degF] Lianet Konrad 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 Work Phone: [facility] 09-01-2024 14:37-0500 Body weight 74 kg Lianet Marteir 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 Work Phone: [facility] 09-01-2024 14:37-0500 Diastolic blood pressure 108 mm[Hg] Lianet Konrad 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 Work Phone: [facility] Comment on above: Lianet Silvestre notified of blood pressu re- patient states he has not taken medications today. 09-01-2024 14:37-0500 Heart rate 102 /min Lianet Silvestre 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 Work Phone: [facility] 09-01-2024 14:37-0500 Respiratory rate 14 /min Lianet Konrad 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 Work Phone: [facility] 09-01-2024 14:37-0500 SaO2% (BldA) [Mass fraction] 99 % Lianet Silvestre 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 Work Phone: [facility] 09-01-2024 14:37-0500 Systolic blood pressure 170 mm[Hg] Lianet Konrad 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 Work Phone: [facility] Comment on above: Lianet Silvestre notified of blood pressu re- patient states he has not taken medications today. 08-24-2024 09:11-0500 Body mass index (BMI) [Ratio] 24.4 kg/m2 Marie Edwards PA-C Work Phone: [facility] 08-24-2024 09:11-0500 Body weight 74.93 kg Marie Edwards PA-C Work Phone: [facility] 08-24-2024 09:11-0500 Diastolic blood pressure 78 mm[Hg] Marie Edwards PA-C Work Phone: [facility] 08-24-2024 09:11-0500 Heart rate 94 /min Marie Edwards PA-C Work Phone: [facility] 08-24-2024 09:11-0500 SaO2% (BldA) [Mass fraction] 100 % Marie Millerer PA-C Work Phone: [facility] 08-24-2024 09:11-0500 Systolic blood pressure 143 mm[Hg] Marie Millerer PA-C Work Phone: [facility] 08-22-2024 14:19-0500 Diastolic blood pressure 90 mm[Hg] Jacques Nettles 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 Work Phone: [facility] 08-22-2024 14:19-0500 Heart rate 102 /min Jacques Nettles 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 Work Phone: [facility] 08-22-2024 14:19-0500 Respiratory rate 16 /min Jacques Nettles 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 Work Phone: [facility] 08-22-2024 14:19-0500 SaO2% (BldA) [Mass fraction] 97 % Jacques Johnstonpster 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 Work Phone: [facility] 08-22-2024 14:19-0500 Systolic blood pressure 142 mm[Hg] Jacques Codorus 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 Work Phone: [facility] 08-10-2024 17:34-0500 Body mass index (BMI) [Ratio] 24.38 kg/m2 Margarita Livan 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 Work Phone: [facility] 08-10-2024 17:34-0500 Body weight 74.9 kg Margarita Licona 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 Work Phone: [facility] 08-10-2024 17:34-0500 Diastolic blood pressure 86 mm[Hg] Margarita WoodsonLivan 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 Work Phone: [facility] 08-10-2024 17:34-0500 Heart rate 101 /min Margarita Livan 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 Work Phone: [facility] 08-10-2024 17:34-0500 Respiratory rate 12 /min Margarita AlvaLivan 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 Work Phone: [facility] 08-10-2024 17:34-0500 SaO2% (BldA) [Mass fraction] 99 % Margarita WoodsonLivan 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 Work Phone: [facility] 08-10-2024 17:34-0500 Systolic blood pressure 130 mm[Hg] Margarita Livan 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 Work Phone: [facility] 10-30-2023 15:14-0400 Body weight 74.25 kg Jah Mas MD Work Phone: [facility] 10-30-2023 15:14-0400 Diastolic blood pressure 86 mm[Hg] Jah Mas MD Work Phone: [facility] 10-30-2023 15:14-0400 Heart rate 106 /min Jah Mas MD Work Phone: [facility] 10-30-2023 15:14-0400 Respiratory rate 18 /min Jah Mas MD Work Phone: [facility] 10-30-2023 15:14-0400 SaO2% (BldA) [Mass fraction] 98 % Jah Mas MD Work Phone: [facility] 10-30-2023 15:14-0400 Systolic blood pressure 132 mm[Hg] Jah Mas MD Work Phone: [facility] 04-22-2023 14:52-0400 Diastolic blood pressure 80 mm[Hg] Margarita Older 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 Work Phone: [facility] 04-22-2023 14:52-0400 Systolic blood pressure 128 mm[Hg] Margarita Older 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 Work Phone: [facility] 04-22-2023 14:21-0400 Heart rate 100 /min Margarita Older 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 Work Phone: [facility] 04-22-2023 14:21-0400 Respiratory rate 18 /min Margarita Older 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 Work Phone: [facility] 04-22-2023 14:21-0400 SaO2% (BldA) [Mass fraction] 98 % Margarita Older 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 Work Phone: [facility] 01-23-2023 15:08-0400 Diastolic blood pressure 88 mm[Hg] Jah Mas MD Work Phone: [facility] 01-23-2023 15:08-0400 Heart rate 91 /min Jah Mas MD Work Phone: [facility] 01-23-2023 15:08-0400 Systolic blood pressure 130 mm[Hg] Jah Mas MD Work Phone: [facility] 01-23-2023 14:58-0400 Respiratory rate 16 /min Jah Mas MD Work Phone: [facility] 12-18-2022 09:53-0400 Body mass index (BMI) [Ratio] 23.6 kg/m2 Dr. Jah Mas Work Phone: [facility] 12-18-2022 09:53-0400 Body temperature 97.6 [degF] Dr. Jah Mas Work Phone: [facility] 12-18-2022 09:53-0400 Diastolic blood pressure 93 mm[Hg] Dr. Jah Mas Work Phone: 1(922)894-138492 [place] [address] 12-18-2022 09:53-0400 Heart rate 92 /min Dr. Jah Mas Work Phone: 0(983)043-485392 [place] [address] 12-18-2022 09:53-0400 Respiratory rate 18 /min Dr. Jah Mas Work Phone: 0(238)510-315292 [place] [address] 12-18-2022 09:53-0400 Systolic blood pressure 125 mm[Hg] Dr. Jah Mas Work Phone: 6(866)861-368092 [place] [address] 12-18-2022 00:43-0400 Body weight 72.[address] Jah Mas Work Phone: 9(315)826-310802 [place] [address] 12-11-2022 10:00-0400 Body mass index (BMI) [Ratio] 23.6 kg/m2 Dr. Jah Mas Work Phone: 7(277)984-077302 [place] [address] 12-11-2022 10:00-0400 Body temperature 96 [degF] Dr. Jah Mas Work Phone: 4(281)615-797592 [place] [address] 12-11-2022 10:00-0400 Diastolic blood pressure 103 mm[Hg] Dr. Jah Mas Work Phone: 5(129)717-522702 [place] [address] 12-11-2022 10:00-0400 Heart rate 106 /min Dr. Jah Mas Work Phone: 0(476)091-343202 [place] [address] 12-11-2022 10:00-0400 Respiratory rate 16 /min Dr. Jah Mas Work Phone: 4(190)742-492002 [place] [address] 12-11-2022 10:00-0400 Systolic blood pressure 146 mm[Hg] Dr. Jah Mas Work Phone: 4(119)337-984502 [place] [address] 12-04-2022 10:14-0400 Body height 175.[address] Jah Mas Work Phone: 4(397)066-488792 [place] [address] 12-04-2022 10:14-0400 Body weight 72.[address] Jah Mas Work Phone: 3(388)480-699592 [place] [address] 11-17-2022 14:27-0400 Body mass index (BMI) [Ratio] 24.2 kg/m2 Dr. Jah Mas Work Phone: 8(252)370-452192 [place] [address] 11-17-2022 14:27-0400 Body temperature 98.6 [degF] Dr. Jah Mas Work Phone: 7(340)813-783092 [place] [address] 11-17-2022 14:27-0400 Body weight 74.[address] Jah Mas Work Phone: 2(286)612-634492 [place] [address] 11-17-2022 14:27-0400 Diastolic blood pressure 90 mm[Hg] Dr. Jah Mas Work Phone: 6(087)937-406192 [place] [address] 11-17-2022 14:27-0400 Heart rate 107 /min Dr. Jah Mas Work Phone: 5(482)343-033902 [place] [address] 11-17-2022 14:27-0400 Respiratory rate 19 /min Dr. Jah Mas Work Phone: 8(304)414-231802 [place] [address] 11-17-2022 14:27-0400 SaO2% (BldA) [Mass fraction] 97 % Dr. Jah Mas Work Phone: 6(651)256-194992 [place] [address] 11-17-2022 14:27-0400 Systolic blood pressure 144 mm[Hg] Dr. Jah Mas Work Phone: 6(526)115-125092 [place] [address] 11-12-2022 14:43-0400 Diastolic blood pressure 98 mm[Hg] Margarita Older 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 Work Phone: [facility] 11-12-2022 14:43-0400 Heart rate 83 /min Margarita Older 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 Work Phone: [facility] 11-12-2022 14:43-0400 Systolic blood pressure 157 mm[Hg] Margarita Older 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 Work Phone: [facility] 11-12-2022 14:08-0400 Respiratory rate 18 /min Margarita Older 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 Work Phone: [facility] 11-03-2022 14:11-0400 Body height 175.[address] Jah Mas Work Phone: [facility] 09-24-2022 15:33-0500 Diastolic blood pressure 90 mm[Hg] Jah Mas MD Work Phone: [facility] 09-24-2022 15:33-0500 Heart rate 95 /min Jah Mas MD Work Phone: [facility] 09-24-2022 15:33-0500 Systolic blood pressure 141 mm[Hg] Jah Mas MD Work Phone: [facility] 09-24-2022 15:26-0500 Body weight 72.48 kg Jah Mas MD Work Phone: [facility] 09-24-2022 15:26-0500 Respiratory rate 16 /min Jah Mas MD Work Phone: [facility] 08-13-2022 14:27-0500 Body weight 72.58 kg Margarita Older 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 Work Phone: [facility] 08-13-2022 14:27-0500 Diastolic blood pressure 86 mm[Hg] Margarita Older 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 Work Phone: [facility] 08-13-2022 14:27-0500 Heart rate 102 /min Margarita Older 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 Work Phone: [facility] 08-13-2022 14:27-0500 Respiratory rate 16 /min Margarita Older 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 Work Phone: [facility] 08-13-2022 14:27-0500 Systolic blood pressure 136 mm[Hg] Margarita Older 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 Work Phone: [facility] 06-19-2022 11:45-0500 Body temperature 98 [degF] Dr. Jah Mas Work Phone: [facility] Work Phone: 06-19-2022 11:45-0500 Diastolic blood pressure 90 mm[Hg] Dr. Jah Mas Work Phone: [facility] Work Phone: 06-19-2022 11:45-0500 Heart rate 76 /min Dr. Jah Mas Work Phone: [facility] Work Phone: 06-19-2022 11:45-0500 Respiratory rate 18 /min Dr. Jah Mas Work Phone: [facility] Work Phone: 06-19-2022 11:45-0500 SaO2% (BldA) [Mass fraction] 100 % Dr. Jah Mas Work Phone: [facility] Work Phone: 06-19-2022 11:45-0500 Systolic blood pressure 146 mm[Hg] Dr. Jah Mas Work Phone: [facility] Work Phone: 06-19-2022 10:18-0500 Body height 175.[address] Jah Mas Work Phone: [facility] [facility] Work Phone: 06-19-2022 10:18-0500 Body mass index (BMI) [Ratio] 22.8 kg/m2 Dr. Jah Mas Work Phone: [facility] Work Phone: 06-19-2022 10:18-0500 Body weight 70.[address] Jah Mas Work Phone: [facility] Work Phone: 05-09-2022 15:23-0400 Body weight 70.31 kg Jah Mas MD Work Phone: [facility] 05-09-2022 15:23-0400 Diastolic blood pressure 80 mm[Hg] Jah Mas MD Work Phone: [facility] 05-09-2022 15:23-0400 Heart rate 90 /min Jah Mas MD Work Phone: [facility] 05-09-2022 15:23-0400 SaO2% (BldA) [Mass fraction] 98 % Jah Mas MD Work Phone: [facility] 05-09-2022 15:23-0400 Systolic blood pressure 114 mm[Hg] Jah Mas MD Work Phone: [facility] 04-29-2022 12:57-0400 Body height 175.[address] Jah Mas Work Phone: [facility] Work Phone: 04-29-2022 12:57-0400 Body mass index (BMI) [Ratio] 22.7 kg/m2 Dr. Jah Mas Work Phone: [facility] Work Phone: 04-29-2022 12:57-0400 Body weight 69.[address] Jah Mas Work Phone: [facility] Work Phone: 04-29-2022 12:57-0400 Diastolic blood pressure 87 mm[Hg] Dr. Jah Mas Work Phone: [facility] Work Phone: 04-29-2022 12:57-0400 Heart rate 80 /min Dr. Jah Mas Work Phone: [facility] Work Phone: 04-29-2022 12:57-0400 SaO2% (BldA) [Mass fraction] 98 % Dr. Jah Mas Work Phone: [facility] Work Phone: 04-29-2022 12:57-0400 Systolic blood pressure 130 mm[Hg] Dr. Jah Mas Work Phone: [facility] Work Phone: 02-05-2022 15:51-0400 Body temperature 97.39 [degF] Jah Mas MD Work Phone: [facility] 02-05-2022 15:51-0400 Body weight 68.86 kg Jah Mas MD Work Phone: [facility] 02-05-2022 15:51-0400 Diastolic blood pressure 88 mm[Hg] Jah Mas MD Work Phone: [facility] 02-05-2022 15:51-0400 Heart rate 88 /min Jah Mas MD Work Phone: [facility] 02-05-2022 15:51-0400 Respiratory rate 16 /min Jah Mas MD Work Phone: [facility] 02-05-2022 15:51-0400 Systolic blood pressure 132 mm[Hg] Jah Mas MD Work Phone: [facility] 12-11-2021 21:50-0400 Diastolic blood pressure 86 mm[Hg] Dr. Samson Garcia Work Phone: [facility] Work Phone: 12-11-2021 21:50-0400 Heart rate 87 /min Dr. Samson Garcia Work Phone: [facility] Work Phone: 12-11-2021 21:50-0400 Respiratory rate 17 /min Dr. Samson Garcia Work Phone: [facility] Work Phone: 12-11-2021 21:50-0400 SaO2% (BldA) [Mass fraction] 96 % Dr. Samson Garcia Work Phone: [facility] Work Phone: 12-11-2021 21:50-0400 Systolic blood pressure 128 mm[Hg] Dr. Samson Garcia Work Phone: [facility] Work Phone: 12-11-2021 18:42-0400 Body height 175.[address] Samson Garcia Work Phone: [facility] Work Phone: 12-11-2021 18:42-0400 Body mass index (BMI) [Ratio] 23.1 kg/m2 Dr. Samson Garcia Work Phone: [facility] Work Phone: 12-11-2021 18:42-0400 Body temperature 97.1 [degF] Dr. Samson Garcia Work Phone: [facility] Work Phone: 12-11-2021 18:42-0400 Body weight 71.[address] Samson Garcia Work Phone: [facility] Work Phone: 11-06-2021 14:40-0400 Body weight 69.85 kg Margarita Older 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 Work Phone: [facility] 11-06-2021 14:40-0400 Diastolic blood pressure 88 mm[Hg] Margarita Older 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 Work Phone: [facility] 11-06-2021 14:40-0400 Heart rate 88 /min Margarita Older 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 Work Phone: [facility] 11-06-2021 14:40-0400 Respiratory rate 14 /min Margarita Older 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 Work Phone: [facility] 11-06-2021 14:40-0400 SaO2% (BldA) [Mass fraction] 99 % Margarita Older 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 Work Phone: [facility] 11-06-2021 14:40-0400 Systolic blood pressure 144 mm[Hg] Margarita Older 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 Work Phone: [facility] 09-24-2021 20:44-0500 Diastolic blood pressure 74 mm[Hg] Dr. Samson Garcia Work Phone: [facility] Work Phone: 09-24-2021 20:44-0500 Heart rate 79 /min Dr. Samson Gracia Work Phone: [facility] Work Phone: 09-24-2021 20:44-0500 Respiratory rate 16 /min Dr. Samson Garcia Work Phone: [facility] Work Phone: 09-24-2021 20:44-0500 SaO2% (BldA) [Mass fraction] 98 % Dr. Samson Garcia Work Phone: [facility] Work Phone: 09-24-2021 20:44-0500 Systolic blood pressure 168 mm[Hg] Dr. Samson Garcia Work Phone: [facility] Work Phone: 09-24-2021 19:05-0500 Body height 175.[address] Samson Garcia Work Phone: [facility] Work Phone: 09-24-2021 19:05-0500 Body mass index (BMI) [Ratio] 24.7 kg/m2 Dr. Samson Garcia Work Phone: [facility] Work Phone: 09-24-2021 19:05-0500 Body temperature 98.2 [degF] Dr. Samson Garcia Work Phone: [facility] Work Phone: 09-24-2021 19:05-0500 Body weight [address] Samson Garcia Work Phone: [facility] Work Phone: 09-20-2021 16:21-0500 Body temperature 98.6 [degF] Dr. Samson Garcia Work Phone: [facility] Work Phone: 09-20-2021 16:21-0500 Diastolic blood pressure 84 mm[Hg] Dr. Samson Garcia Work Phone: [facility] Work Phone: 09-20-2021 16:21-0500 Heart rate 98 /min Dr. Samson Garcia Work Phone: [facility] Work Phone: 09-20-2021 16:21-0500 Respiratory rate 18 /min Dr. Samson Garcia Work Phone: [facility] Work Phone: 09-20-2021 16:21-0500 SaO2% (BldA) [Mass fraction] 99 % Dr. Samson Garcia Work Phone: [facility] Work Phone: 09-20-2021 16:21-0500 Systolic blood pressure 147 mm[Hg] Dr. Samson Garcia Work Phone: [facility] Work Phone: 09-20-2021 14:14-0500 Body weight 73.[address] Samson Garcia Work Phone: [facility] Work Phone: 09-19-2021 11:34-0500 Body mass index (BMI) [Ratio] 24 kg/m2 Dr. Samson Garcia Work Phone: [facility] Work Phone: 07-09-2020 07:20-0500 Body Temperature 98.2 [degF] [facility] 07-09-2020 07:20-0500 BP Diastolic 77 mm[Hg] [facility] [place] [facility] [place] 07-09-2020 07:20-0500 BP Systolic 119 mm[Hg] Maribell Lees [facility] , [place] 07-09-2020 07:20-0500 Pulse (Heart Rate) 83 /min Maribell Lees [facility] 07-09-2020 07:20-0500 Pulse Oximetry 98 % Maribell Lees [facility] , [place] 07-09-2020 07:20-0500 Respiratory Rate 18 /min [facility] [place] 07-08-2020 12:54-0500 Height 175.3 cm [facility] [place] 07-08-2020 06:58-0500 BMI (Body Mass Index) 27.44 kg/m2 Maribell Lees [facility] 07-08-2020 06:58-0500 Body weight 84.3 kg Maribell Lees [facility] [place] 10-10-2019 16:09-0400 Body Temperature 97.7 [degF] [facility] [place] [place] 10-10-2019 16:09-0400 BP Diastolic 87 mm[Hg] [facility] [place] [facility] [place] 10-10-2019 16:09-0400 BP Systolic 124 mm[Hg] [facility] [place] [facility] [place] 10-10-2019 16:09-0400 Pulse (Heart Rate) 96 /[facility] [place] 10-10-2019 16:09-0400 Pulse Oximetry 100 % [facility] [place] 10-10-2019 16:09-0400 Respiratory Rate 16 /min [facility] [place] 10-10-2019 14:26-0400 BMI (Body Mass Index) 23.63 kg/m2 [facility] [place] [place] 10-10-2019 14:26-0400 Body weight 72.58 kg [facility] [place] [facility] [place] 10-10-2019 14:26-0400 Height 175.3 [facility] [place] 09-07-2019 16:20-0500 BP Diastolic 83 mm[Hg] [facility], [place] 09-07-2019 16:20-0500 BP Systolic 125 mm[Hg] [facility], [place] 09-07-2019 16:20-0500 Pulse (Heart Rate) 95 /min [facility]garry [facility], [place] 09-07-2019 16:20-0500 Pulse Oximetry 100 % [facility], [place] 09-07-2019 16:20-0500 Respiratory Rate 18 /min [facility], [place] 09-07-2019 15:33-0500 BMI (Body Mass Index) 22.15 kg/m2 [facility], [place] 09-07-2019 15:33-0500 Body weight 68.[address] [facility], [place] 09-07-2019 12:43-0500 Body Temperature 97.81 [degF] [facility], [place] 07-09-2019 15:10-0500 Body temperature 98.1 [degF] Marie London MD Work Phone: [employer] Work Phone: 07-09-2019 15:10-0500 Diastolic blood pressure 71 mm[Hg] Marie London MD Work Phone: [facility] Work Phone: 07-09-2019 15:10-0500 Heart rate 83 /min Marie London MD Work Phone: [facility] Work Phone: 07-09-2019 15:10-0500 Respiratory rate 18 /min Marie London MD Work Phone: [facility] Work Phone: 07-09-2019 15:10-0500 SaO2% (BldA) [Mass fraction] 99 % Marie London MD Work Phone: [facility] Work Phone: 07-09-2019 15:10-0500 Systolic blood pressure 111 mm[Hg] Marie London MD Work Phone: [facility] Work Phone: 07-09-2019 09:00-0500 Body height 175.3 cm Marie London MD [facility] Phone: [facility] Work Phone: 07-09-2019 09:00-0500 Body mass index (BMI) [Ratio] 27.62 kg/m2 Marie London MD Work Phone: [facility] Work Phone: 07-09-2019 09:00-0500 Body weight 84.82 kg Marie London MD Work Phone: [facility] Work Phone: Encounters Encounter Date Encounter Type Care Provider Facility Start: 01-06-2025 Evaluation and manag ement of inpatient Dr. Xavi Orona DO -Intensive Care Unit Work Phone: Start: 01-02-2025 ambulatory Rebecca Hoffman [place] [facility] Start: 12-08-2024 End: 12-08-2024 ambulatory JAH MAS Facility:[facility] Start: 12-07-2024 End: 12-07-2024 Patient encounter procedure Rebecca Hoffman GRIDCAP MACHINE OPERATOR-C -[facility] Work Phone: Start: 12-07-2024 End: 12-07-[address] Jah Mas MD Work Phone: [facility] Work Phone: Start: 12-01-2024 End: 12-01-2024 ambulatory [facility] Work Phone: [facility] Start: 12-01-2024 End: 12-01-2024 Patient encounter procedure Edgarmaira Dohertygo [facility] Work Phone: [facility] Start: 09-14-2024 End: 09-21-2024 Telephone encounter Lianet Silvestre APRN.RETAINING ROOM CUTTER Work Phone: General Surgery Comment on above: Orders (Colonoscopy - [facility]) Start: 09-01-2024 End: 09-01-2024 Orders Only Jacques Nettles APRN.RETAINING ROOM CUTTER Work Phone: Pulmonary Medicine Comment on above: Encounter for screen ing for lung cancer (Primary Dx); Tobacco use current Screen for colon can cer Numbness and tinglin g [R20.0, R20.2] Encounter for screen ing for lung cancer [Z12.2] Start: 08-30-2024 End: 09-02-2024 Follow-up encounter Marie Edwards PA-C Work Phone: Neurology Comment on above: Cervical stenosis of spinal canal (Primary Dx) Start: 08-30-2024 End: 08-30-2024 Telephone encounter Marie Edwards PA-C Work Phone: Neurology Comment on above: Results Start: 08-24-2024 End: 08-24-2024 ambulatory JAH MAS Facility:[facility] Start: 08-24-2024 End: 08-24-2024 Patient encounter procedure Marie Edwards PA-C Work Phone: Neurology Comment on above: Numbness and tinglin g (Primary Dx); Memory deficit; Frequent falls; Cerebral infarction, unspecified mechanism (HCC); Spinal stenosis of cervical region Start: 08-24-2024 End: 08-24-2024 ambulatory JAH MAS Facility:[facility] Start: 08-23-2024 End: 08-29-2024 Telephone encounter Margarita Licona APRN.CNP Work Phone: [facility] [place] Start: 08-22-2024 End: 08-22-2024 ambulatory JAH MAS Facility:[facility] Start: 08-22-2024 End: 08-22-2024 Patient encounter procedure Jacques Nettles APRN.RETAINING ROOM CUTTER Work Phone: Pulmonary Medicine Comment on above: Encounter for screen ing for lung cancer (Primary Dx); Tobacco use current Start: 08-18-2024 End: 08-18-2024 Patient encounter procedure Rebecca MORALES -[facility] Work Phone: Start: 08-18-2024 End: 08-18-2024 ambulatory Rebecca Hoffman Facility[facility] Start: 08-10-2024 End: 08-10-2024 ambulatory JAH MAS Facility:[facility] Start: 08-10-2024 End: 08-10-2024 Patient encounter procedure Margarita Houston Livan ORTEGA Work Phone: Internal Medicine [place] Comment on above: Medicare annual well ness visit, initial (Primary Dx); Numbness and tingling; Memory deficit; Frequent falls; 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); Depression with anxiety; Primary hypertension; Gastroesophageal reflux disease, unspecified whether esophagitis present; Charcot's joint of right foot; PVD (peripheral vascular disease) (HCC); Encounter for immunization; Encounter for screening for lung cancer Start: 08-01-2024 End: 08-01-2024 ambulatory [facility] Facility:[facility] Start: 07-01-2024 End: 07-01-2024 Telephone encounter Jah Mas MD Work Phone: Internal Medicine [place] Comment on above: Dose Clarification ( amlodipine) Refill Request; Medi cation Question Start: 06-19-2024 End: 06-19-2024 Emergency department patient visit [facility] Facility:[facility] Start: 06-14-2024 End: 06-15-2024 Emergency department patient visit [facility] Facility:[facility] Start: 05-18-2024 End: 05-18-2024 ambulatory Mario Ribeiro MA [facility] [place] Start: 05-18-2024 End: 05-18-2024 Patient encounter procedure Mario Ribeiro MA [facility] [place] Comment on above: Population Health Na vigation Outreach (Jareth Berger [facility] ) Start: 05-16-2024 End: 05-16-2024 ambulatory Jah Mas MD Work Phone: [facility] Comment on above: Allied Health Visit (Medication Adherence Outreach/) Start: 05-02-2024 End: 05-02-2024 ambulatory [facility] Facility:[facility] Start: 05-02-2024 End: 05-02-2024 [facility] Facility:[facility] Start: 04-28-2024 End: 04-28-2024 ambulatory Jah Mas MD Work Phone: [facility] Comment on above: Allied Health Visit (Medication Adherence Outreach ) Start: 04-16-2024 End: 04-18-2024 Refill Margarita Licona APRN.CNP Work Phone: Internal Medicine [place] Comment on above: Med Change Request Start: 04-12-2024 End: 04-12-2024 ambulatory Jah Mas MD Work Phone: [facility] Comment on above: Allied Health Visit (Medication Adherence Outreach/) Start: 03-23-2024 End: 03-24-2024 Refill Jah Mas MD Work Phone: [facility] Medicine [place] Comment on above: Refill Request Medication Question Start: 02-23-2024 Telephone encounter Jah diaz MD Work Phone: [facility] [place] Comment on above: Health Risk Assessme nt Start: 02-16-2024 ambulatory Brian Rousseau MA [facility] [place] Start: 02-16-2024 Patient encounter procedure Brian palafox MA [facility] [place] Comment on above: Appointment Start: 02-11-2024 ambulatory [facility] [place] Start: 02-11-2024 Patient encounter procedure Sonam knight [facility] [place] Comment on above: Population Health Na vigation Outreach ([facility] AWV/HCC and care gaps ) Start: 02-10-2024 End: 02-10-2024 ambulatory [facility] Facility[facility] Start: 02-10-2024 End: 02-10-2024 [facility] Facility:[facility] Start: 12-28-2023 Telephone encounter Jah diaz MD Work Phone: [facility] [place] Comment on above: DME form from [employer] for boost supplement Start: 12-25-2023 Telephone encounter Jah diaz MD Work Phone: [facility] [place] Comment on above: Forms/letter Start: 10-30-2023 End: 10-30-2023 Patient encounter procedure Jah Mas MD Work Phone: [facility] [place] Comment on above: Routine medical exam (Primary Dx); 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); Sore throat; Screening for colon cancer; Primary hypertension; Depression with anxiety; Neurodermatitis Start: 10-30-2023 End: 10-30-2023 Patient encounter status Jah Mas MD Work Phone: [facility] Work Phone: Start: 09-18-2023 Refill Jah blackmon MD Work Phone: [facility] [place] Comment on above: Refill Request Start: 08-21-2023 Telephone encounter Jah diaz MD Work Phone: [facility] [place] Comment on above: Letter Start: 07-30-2023 End: 07-30-2023 Subsequent hospital visit by physician Xr [facility] [place] Work Phone: Radiology Comment on above: Acute cough [R05.1] Start: 06-29-2023 ambulatory Vikki Whatley [facility] Work Phone: [facility] Comment on above: Medication Update (S tatin use review) Start: 06-09-2023 Refill Jah blackmon MD Work Phone: Family Medicine [place] Comment on above: Refill Request Start: 06-04-2023 ambulatory Marie (Gladys Steward [facility] [place] Comment on above: Population Health Na vigation Outreach ([facility] care gap) Start: 04-22-2023 End: 04-22-2023 Patient encounter procedure Margarita Parisi APRN.CNP Work Phone: Internal Medicine [place] Comment on above: Primary hypertension (Primary Dx); 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); Encounter for immunization Start: 03-27-2023 ambulatory Morena Israel MA [facility] [place] Comment on above: Population Health Na vigation Outreach ([facility] care gap outreach) Start: 01-23-2023 End: 01-23-2023 Patient encounter procedure Jah Mas MD Work Phone: [facility] [place] Comment on above: Primary hypertension (Primary Dx); 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); Non-healing wound of amputation stump (HCC); Need for vaccination; Neurodermatitis Start: 12-18-2022 Non-patient / Non-visit Dr. Denita Mas Work Phone: [place] Start: 12-18-2022 End: 12-18-[address] Jah Mas Work Phone: [facility] Work Phone: Start: 12-18-2022 End: 12-18-[address] Jah Mas Work Phone: [facility] Start: 12-11-2022 Non-patient / Non-visit Dr. Denita Mas Work Phone: [place] Start: 12-11-2022 End: 12-17-[address] Jah Mas Work Phone: [facility] Work Phone: Start: 12-11-2022 End: 12-17-[address] Jah Mas Work Phone: [facility] Start: 12-04-2022 Non-patient / Non-visit Dr. Denita Mas Work Phone: [place] Start: 11-17-2022 End: 11-17-[address] Jah Mas Work Phone: [facility] Start: 11-12-2022 End: 11-12-2022 Patient encounter procedure Margarita Older 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 Work Phone: Internal Medicine [place] Comment on above: Primary hypertension (Primary Dx); Type 1 diabetes mellitus with other specified complication (HCC); Skin ulcers (HCC); Hep C w/o coma, chronic (HCC); Encounter for immunization Start: 11-03-2022 End: 11-03-[address] Jah Mas Work Phone: [facility] Work Phone: Start: 11-03-2022 End: 11-03-[address] Jah Mas Work Phone: [facility] Start: 10-29-2022 ambulatory Marie (Pss) Bin [facility] [place] Comment on above: Population Health Na vigation Outreach ([facility] care gap) Start: 10-07-2022 ambulatory Laquita shannon [facility] Work Phone: [facility] Comment on above: Medication Update (S tatin Use Review/) Start: 10-03-2022 Refill Jah blackmon MD Work Phone: Internal Medicine [place] Comment on above: Refill Request Start: 10-01-2022 Refill Jah blackmon MD Work Phone: [facility] Medicine [place] Comment on above: Refill Request (Plea se see Rx notes) Start: 09-24-2022 End: 09-24-2022 Patient encounter procedure Jah Mas MD Work Phone: Internal Medicine [place] Comment on above: Skin ulcers (HCC) (P rimary Dx); 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); Primary hypertension; Charcot's joint of right foot; Osteomyelitis of left tibia, unspecified type (HCC); Amputee, below knee, left (HCC); Non-healing wound of amputation stump (HCC) Start: 08-15-2022 Telephone encounter Margarita Parisi APRN.RETAINING ROOM CUTTER Work Phone: Internal Medicine [place] Comment on above: Results Start: 08-13-2022 End: 08-13-2022 Subsequent hospital visit by physician Divya [facility] [place] Work Phone: Radiology Comment on above: Acute cough [R05.1] Start: 08-13-2022 End: 08-13-2022 Patient encounter procedure Margarita Parisi APRN.RETAINING ROOM CUTTER Work Phone: Internal Medicine [place] Comment on above: Diabetic polyneuropa thy associated with type 1 diabetes mellitus (HCC) (Primary Dx); Primary hypertension; Acute cough; Depression with anxiety; Wheezing; Hypothyroidism, unspecified type; Gastroesophageal reflux disease, unspecified whether esophagitis present; Pure hypercholesterolemia Start: 06-19-2022 Non-patient / Non-visit Dr. Denita Mas Work Phone: [facility] Start: 06-19-2022 End: 06-19-2022 Admission to same day surgery center Dr. Jah Mas Work Phone: [facility] Start: 06-19-2022 End: 06-19-[address] Jah Mas Work Phone: [facility] Work Phone: Start: 06-16-2022 Refill Jah blackmon MD Work Phone: Internal Medicine [place] Comment on above: Refill Request Start: 06-02-2022 End: 06-02-[address] Jah Mas Work Phone: [facility] Work Phone: Start: 06-02-2022 End: 06-02-[address] Jah Mas Work Phone: [facility] Start: 05-09-2022 End: 05-09-2022 Patient encounter procedure Jah Mas MD Work Phone: Internal Medicine [place] Comment on above: Amputation stump inf ection (HCC) (Primary Dx); Encounter for immunization; Primary hypertension; 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); Need for vaccination Start: 05-02-2022 ambulatory Sanjuanita Saavedra [facility] [place] Comment on above: Population Health Na vigation Outreach ([facility] Attribution /) Start: 04-29-2022 End: 04-29-[address] Jah Mas Work Phone: [facility] Work Phone: Start: 04-29-2022 End: 04-29-[address] Jah Mas Work Phone: [facility] Start: 04-29-2022 End: 04-29-[address] Jah Mas Work Phone: [facility] Start: 02-24-2022 End: 02-24-2022 Patient encounter procedure Gucci Escobar Work Phone: Podiatry Comment on above: Below-knee amputatio n (HCC) (Primary Dx); Charcot's joint of right foot; Other diabetic neurological complication associated with type 2 diabetes mellitus (HCC); Onychomycosis; Diminished pulses in lower extremity Start: 02-24-2022 End: 02-24-2022 Subsequent hospital visit by physician Divya [facility] Work Phone: Radiology Comment on above: Charcot ankle, right [M14.671] Start: 02-06-2022 ambulatory Sanjuanita Saavedra [facility] [place] Comment on above: Population Health Na vigation Outreach ([facility] Attribution ) Start: 02-05-2022 End: 02-05-2022 Patient encounter procedure Jah Mas MD Work Phone: Internal Medicine [place] Comment on above: Special screening fo r malignant neoplasms, colon (Primary Dx); Charcot's joint of right foot; Depression with anxiety; 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); Primary hypertension; Hypothyroidism, unspecified type; Gastroesophageal reflux disease, unspecified whether esophagitis present; Hep C w/o coma, chronic (HCC); Encounter for screening for HIV Start: 12-30-2021 ambulatory [facility] [place] Comment on above: Population Health Na vigation Outreach ([facility] Care Gap) Start: 12-27-2021 Refill Jah blackmon MD Work Phone: Internal Medicine [place] Comment on above: Refill Request Start: 12-11-2021 End: 12-11-2021 Emergency department patient visit Dr. Samson Garcia Work Phone: [facility] Start: 12-11-2021 End: 12-11-2021 ambulatory Margarita Older 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 Work Phone: [facility] [place] Comment on above: Abdominal pain, unsp ecified abdominal location (Primary Dx); Chest pain, unspecified type Start: 12-11-2021 End: 12-11-2021 Telemedicine consultation with patient Margarita Parisi APRN.RETAINING ROOM CUTTER Work Phone: [facility] Start: 11-06-2021 End: 11-06-2021 Patient encounter procedure Margarita Parisi APRN.RETAINING ROOM CUTTER Work Phone: [facility] [place] Comment on above: Diabetic polyneuropa thy associated with type 1 diabetes mellitus (HCC) (Primary Dx); Osteomyelitis of left tibia, unspecified type (HCC); Depression with anxiety; Insomnia, unspecified type; Lower urinary tract symptoms (LUTS); Anemia, unspecified type; Hypothyroidism, unspecified type; Hep C w/o coma, chronic (HCC); Charcot's joint of right foot; Primary hypertension; History of diabetic gastroparesis; History of drug abuse in remission (HCC) Start: 10-28-[address] Dereje Garcia Work Phone: [facility] Start: 10-22-2021 ambulatory Margarita Parisi APRN .RETAINING ROOM CUTTER Work Phone: Internal Medicine [facility] Start: 10-21-2021 ambulatory Morena Israel [place] [facility] [place] Comment on above: Population Health Na vigation Outreach (Navigator Jareth [employer] care gap) Start: 10-21-2021 End: 11-16-[address] Samson Garcia Work Phone: [facility] Start: 10-14-2021 End: 10-17-[address] Samson Garcia Work Phone: [facility] Start: 09-24-2021 End: 09-24-2021 Emergency department patient [facility] Samson [facility] Start: 09-20-2021 Non-patient / Non-visit Dr. Clive Garcia Work Phone: [facility] Start: 09-19-2021 Non-patient / Non-visit Dr. Clive Garcia Work Phone: [facility] Start: 09-18-2021 Non-patient / Non-visit Dr. Clive Garcia Work Phone: [facility] Start: 09-17-2021 Non-patient / Non-visit Dr. Clive Garcia Work Phone: [facility] Start: 09-16-2021 Non-patient / Non-visit Dr. Clive Garcia Work Phone: [facility] Start: 09-15-2021 Non-patient / Non-visit Dr. Clive Garcia Work Phone: [facility] Start: 09-14-2021 Non-patient / Non-visit Dr. Clive Garcia Work Phone: [facility] Start: 09-14-2021 End: 09-20-2021 Evaluation and management of inpatient Dr. Samson Garcia [facility] Start: 07-04-2020 End: 07-09-2020 Evaluation and management of inpatient Maribell Kang Work Phone: [facility] Comment on above: Cellulitis of left l ower extremity (Primary Dx); Hyperglycemia Start: 12-07-2019 End: 12-07-2019 Subsequent hospital visit by physician Elizabeth Nelson Work Phone: [facility] Comment on above: Epigastric mass; LLQ abdominal mass; Pelvic pain Start: 10-10-2019 End: 10-10-2019 Emergency department patient visit Cristofer Kellogg Work Phone: [facility] Emergency Dept Comment on above: Depression, unspecif ied depression type (Primary Dx) Start: 09-07-2019 End: 09-07-2019 Emergency department patient visit Elizabeth Nelson [facility] [place] [facility] Comment on above: Left flank pain (Sarah angélica Dx); Acute left-sided thoracic back pain; Drug-induced constipation Start: 07-09-2019 End: 07-09-2019 Emergency department patient visit Marie London MD Work Phone: [facility] Procedures Date Procedure Procedure Detail Performing Clinician Start: 01-06-[address] Jah Mas MD Work Phone: Comment on above: Dr Richard SARAVIA OF PATIENT CARE PER NURSING PROTOCOL Start: 01-06-2025 Urnls dip stick/tabl et reagent auto microscopy Dr. Jah Mas MD Work Phone: Start: 01-06-2025 CT of head without contrast Dr. Jah Mas MD Work Phone: Start: 01-06-2025 Plain chest X-ray Dr. Carolyn Mas MD Work Phone: Start: 01-06-[address] Jah Mas MD Work Phone: Start: 01-06-2025 Flow cytometry cell surf marker techl only 1st Dr. Jah Mas MD Work Phone: Start: 09-01-2024 Mri brain brain stem w/o contrast material Marie Edwards PA-C Work Phone: Start: 09-01-2024 CT LUNG SCREEN WO DAWSON Nettles 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 Work Phone: Start: 08-10-2024 PFIZER-BIONTECH COVI D-19 VACCINE AGE 12+ YR (COMIRNATY) Margarita Licona 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 Work Phone: Start: 07-30-2023 Radiologic exam ches t 2 views Julianna Schumacher 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 Work Phone: Start: 04-22-2023 INFLUENZA VACCINE, A GE 6 MO - 64 YR, QUADRIVALENT (AFLURIA, FLULAVAL, FLUZONE) Margarita Parisi 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 Work Phone: Start: 04-22-2023 PFIZER-BIONTECH COVI D-19 VACCINE ( SEASON) AGE 12+ YR Margarita Older 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 Work Phone: Start: 08-13-2022 Radiologic exam ches t 2 views Margarita Licona 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 Work Phone: Start: 06-19-2022 End: 06-19-[address] Jah Mas Work Phone: Start: 05-09-2022 INFLUENZA VACCINE QUADRIVALENT 6 MO - 64 YRS IM Jah Mas MD Work Phone: Start: 02-24-2022 Radex foot complete minimum 3 views Gucci Escobar Work Phone: Start: 12-11-2021 Computed tomography of abdomen and pelvis with intravenous contrast Dr. Samson Garcia Work Phone: Start: 12-11-2021 CT angiography of ch est with contrast Dr. Samson Garcia Work Phone: Start: 12-11-2021 Plain chest X-ray Dr. Lamont Garcia Work Phone: Start: 09-19-2021 End: 09-19-2021 Acid fast bacilli culture Dr. Samson diaz Work Phone: Start: 09-19-2021 End: 09-19-[address] Samson Garcia Work Phone: Start: 09-19-2021 End: 09-19-2021 Cytopathology procedure, preparation of smear, genital source Dr. Samson Garcia Work Phone: Start: 09-19-2021 End: 09-19-[address] Samson Garcia Work Phone: Start: 09-19-2021 Investigation of tra nsfusion reaction Dr. Samson Garcia Work Phone: Start: 09-19-2021 End: 09-19-2021 Microbial culture, routine Dr. Samson martinez Work Phone: Start: 09-19-2021 End: 09-19-[address] Samson Garcia Work Phone: Start: 09-19-2021 Amputation of lower limb Dr. Samson Garcia Work Phone: Start: 09-16-2021 MRI of lower extremity Dr. Samson Garcia Work Phone: Start: 09-14-2021 Plain X-ray of tibia and fibula Dr. Samson Garcia Work Phone: Start: 09-14-2021 Bacteria identified in Blood by Culture Dr. Smason Garcia Work Phone: Start: 07-10-2020 Microscopic examinat ion of blood, culture Comment on above: Performed By: #### H EMDF, LIPA4, CMP3 #### [employer] [address] [place] [address] Start: 07-09-2020 Insj prph ctr vad w/ subq port age 4 yr/> Spencer Villela Work Phone: Start: 07-09-2020 Nursing procedure Corky radha Jordy Villela Work Phone: Start: 07-09-2020 Gluc bld gluc mntr d ev cleared fda spec home use Imola K Osapay Work Phone: Start: 07-09-2020 Gluc bld gluc mntr d ev cleared fda spec home use Imola K Osapay Work Phone: Start: 07-09-2020 Blood count complete auto&auto difrntl wbc Mo Luis Work Phone: Start: 07-09-2020 Comprehensive metabo lic panel Mo Luis Work Phone: Start: 07-08-2020 Gluc bld gluc mntr d ev cleared fda spec home use Imola K Osapay Work Phone: Start: 07-08-2020 Gluc bld gluc mntr d ev cleared fda spec home use Imola K Osapay Work Phone: Start: 07-08-2020 Gluc bld gluc mntr d ev cleared fda spec home use Imola K Osapay Work Phone: Start: 07-08-2020 Gluc bld gluc mntr d ev cleared fda spec home use Imola K Osapay Work Phone: Start: 07-08-2020 Blood count complete auto&auto difrntl wbc Mo Luis Work Phone: Start: 07-08-2020 Comprehensive metabo lic panel oM Luis Work Phone: Start: 07-08-2020 Drug screen quantita tive vancomycin Elizabeth Victor Manuel Work Phone: Start: 07-07-2020 Gluc bld gluc mntr d ev cleared fda spec home use Imola K Osapay Work Phone: Start: 07-07-2020 Gluc bld gluc mntr d ev cleared fda spec home use Imola K Osapay Work Phone: Start: 07-07-2020 Gluc bld gluc mntr d ev cleared fda spec home use Imola K Osapay Work Phone: Start: 07-07-2020 Gluc bld gluc mntr d ev cleared fda spec home use Imola K Osapay Work Phone: Start: 07-07-2020 Blood count complete auto&auto difrntl wbc Mo Luis Work Phone: Start: 07-07-2020 Comprehensive metabo lic panel Mo Luis Work Phone: Start: 07-06-2020 Gluc bld gluc mntr d ev cleared fda spec home use Imola K Osapay Work Phone: Start: 07-06-2020 Gluc bld gluc mntr d ev cleared fda spec home use Imola K Osapay Work Phone: Start: 07-06-2020 OPERATIVE REPORT 3m Sca nning Start: 07-06-2020 Gluc bld gluc mntr d ev cleared fda spec home use Maribell Kang Work Phone: Start: 07-06-2020 Cul bact xcpt urine blood/stool aerobic isol Maribell Kang Work Phone: Start: 07-06-2020 Culture bacterial an y source anaerobic iso&id Maribell Kang Work Phone: Start: 07-06-2020 Drug screen quantita tive vancomycin Elizabeth Rush Work Phone: Start: 07-06-2020 Gluc bld gluc mntr d ev cleared fda spec home use Maribell Kang Work Phone: Start: 07-06-2020 Gluc bld gluc mntr d ev cleared fda spec home use Imola K Osapay Work Phone: Start: 07-06-2020 Blood count complete auto&auto difrntl wbc Mo Luis Work Phone: Start: 07-06-2020 Comprehensive metabo lic panel Mo Luis Work Phone: Start: 07-06-2020 Drug screen quantita tive vancomycin Elizabeth Rush Work Phone: Start: 07-05-2020 Gluc bld gluc mntr d ev cleared fda spec home use Imola K Osapay Work Phone: Start: 07-05-2020 Gluc bld gluc mntr d ev cleared fda spec home use Imola K Osapay Work Phone: Start: 07-05-2020 Mri lower extrem oth /thn jt w/o contr matrl Mo Luis Work Phone: Start: 07-05-2020 Gluc bld gluc mntr d ev cleared fda spec home use Imola K Osapay Work Phone: Start: 07-05-2020 Gluc bld gluc mntr d ev cleared fda spec home use Imola K Osapay Work Phone: Start: 07-05-2020 Blood count complete auto&auto difrntl wbc oM Luis Work Phone: Start: 07-05-2020 Comprehensive metabo lic panel Mo Luis Work Phone: Start: 07-05-2020 Hemoglobin glycosylated a1c Elizabeth Rush Work Phone: Start: 07-05-2020 Iadna hepatitis c qu ant & reverse staff midwife Elizabeth Rush Work Phone: Start: 07-05-2020 Prothrombin time Arturo garry Rush Work Phone: Start: 07-04-2020 Gluc bld gluc mntr d ev cleared fda spec home use Imola K Osapay Work Phone: Start: 07-04-2020 Urnls dip stick/tabl et rgnt auto w/o microscopy Elizabeth Rush Work Phone: Start: 07-04-2020 CULTURE, BLOOD 1 Arturo Rush Work Phone: Start: 07-04-2020 Gluc bld gluc mntr d ev cleared fda spec home use Imola K Osapay Work Phone: Start: 07-04-2020 Culture bacterial bl ood aerobic w/id isolates Elizabeth Rush Work Phone: Start: 07-04-2020 Procalcitonin (pct) Chr carl Rush Work Phone: Start: 07-04-2020 Gluc bld gluc mntr d ev cleared fda spec home use Maribell Kang Work Phone: Start: 07-04-2020 Gluc bld gluc mntr d ev cleared fda spec home use Maribell Kang Work Phone: Start: 07-04-2020 Radiologic examinati on tibia & fibula 2 views Maribell Kang Work Phone: Start: 07-04-2020 Cul prsmptv pthgnc o rganism scrn w/colony estimj Maribell Kang Work Phone: Start: 07-04-2020 Assay of lactate Eber Kang Work Phone: Start: 07-04-2020 Basic metabolic pane l calcium total Maribell Kang Work Phone: Start: 07-04-2020 Blood count complete auto&auto difrntl wbc Maribell Kang Work Phone: Start: 12-07-2019 Ct pelvis w/contrast material Elizabeth Nelson Work Phone: Start: 10-10-2019 Assay of ethanol Xochitl Real Work Phone: Start: 10-10-2019 Blood count complete auto&auto difrntl wbc Xochitl Real Work Phone: Start: 10-10-2019 Comprehensive metabo lic panel Xochitl Real Work Phone: Start: 10-10-2019 Drug screen class list a Xochitl Real Work Phone: Start: 09-07-2019 Assay of lipase Clinton Tran Work Phone: Start: 09-07-2019 Blood count complete auto&auto difrntl wbc Clinton Tran Work Phone: Start: 09-07-2019 Comprehensive metabo lic panel Clinton Tran Work Phone: Start: 09-07-2019 Urnls dip stick/tabl et rgnt auto w/o microscopy Clinton Manuel Work Phone: Start: 09-07-2019 Ct abdomen & pelvis w/o contrast material Clinton Manuel Work Phone: Start: 07-09-2019 Gluc bld gluc mntr d ev cleared fda spec home use Marie London MD Work Phone: Start: 07-09-2019 Gluc bld gluc mntr d ev cleared fda spec home use Yahir IlNewHound DO Work Phone: Start: 07-09-2019 Gluc bld gluc mntr d ev cleared fda spec home use Yahir Ilodi DO Work Phone: Start: 07-09-2019 End: 07-09-2019 Basic metabolic panel calcium total Marie London MD Work Phone: Start: 07-09-2019 Radiologic exam abdo men 1 view Marie London MD Work Phone: Start: 06-22-2019 Antibody screen Comment on above: Performed By: #### C BC1 #### [place] [id number] Laboratory test resu lt abnormal Abnormal laboratory test Dr. Samson Garcia Work Phone: Plan of Treatment Date Care Activity Detail Author Start: 01-23-2033 Urine microalbumin profile [facility] Start: 09-01-2025 Screening for malignant neoplasm of lung Lung Cancer Screening [facility] Start: 08-20-2025 End: 10-01-2025 CT Chest for screening WO contrast CT LUNG SCREEN WO IVCON Radiology Routine Encounter for screening for lung cancer Tobacco use current Expected: 08/20/2025 (Approximate), Expires: 10/01/[address] [facility] Work Phone: Comment on above: Expected: 08/20/2025 (Approximate), Expi res: 10/01/2025 Start: 08-10-2025 Annual PCP Team Chronic Disease Visit Annual PCP Team Chronic Disease Visit [facility] Start: 08-10-2025 BP Controlled (<130/80) BP Controlled (<130/80) [facility] Start: 08-10-2025 Diabetic foot examination Diabetic Foot Exam [facility] Start: 08-10-2025 Shingrix Vaccine (1 of 2) Shingrix Vaccine (1 of 2) [facility] Comment on above: Postponed from 2024 (Declined at t his time) Start: 08-01-2025 Hepatitis B screening Urine Albumin:Creatinine Ratio [facility] Start: 07-20-2025 Screening for malignant neoplasm of colon Colorectal Cancer Screening [facility] Comment on above: Postponed from 2019 (Declined at t his time) Start: 02-09-2025 Hepatitis B surface antibody level LDL Cholesterol [facility] Start: 01-06-2025 [facility] Start: 01-06-2025 Verification routine [facility] Start: 01-06-2025 Admission procedure [facility] Start: 01-06-2025 Hospital admission, emergency, from emergency room, medical nature [facility] Start: 01-06-2025 [facility] Start: 01-06-2025 Bacteria identified in Blood by Culture Blood Culture [facility] Start: 12-08-2024 End: 12-08-2024 Patient encounter procedure 12/08/2024 2:40 PM EDT Office Visit Internal Medicine [address] [address] Jah Mas MD [address] [place] [place] [address] follow up 4 months [facility] [place] Comment on above: follow up 4 months Start: 11-21-2024 Hemoglobin A1c measurement HbA1C [facility] Start: 10-30-2024 Hemoglobin A1c measurement HbA1C [facility] Start: 10-29-2024 Annual PCP Team Chronic Disease Visit Annual PCP Team Chronic Disease Visit [facility] Start: 09-05-2024 End: 09-05-2024 Patient encounter procedure Radiology Comment on above: Spinal stenosis of cervical region [M48. 02] Numbness and tinglin g [R20.0, R20.2]; Cerebral infarction, unspecified mechanism (HCC) [I63.9] Start: 09-01-2024 End: 09-01-2024 Patient encounter procedure Cat Scan Comment on above: CT LUNG SCREENING Screen for colon can cer [Z12.11] Screen for colon can cer [Z12.11] Last 06/19/2022 Friend sub-optimal prep. LH Start: 08-24-2024 End: 11-23-2024 C reactive protein [Mass/volume] in Serum or Plasma [facility] Comment on above: Expected: 08/24/2024, Expires: Start: 08-24-2024 End: 11-23-2024 Cobalamin (Vitamin B12) [Mass/volume] in Serum or Plasma [facility] Comment on above: Expected: 08/24/2024, Expires: Start: 08-24-2024 End: 11-23-2024 Erythrocyte sedimentation rate [facility] Work Phone: Comment on above: Expected: 08/24/2024, Expires: Start: 08-24-2024 End: 11-23-2024 Hemoglobin A1c in Blood [facility] Comment on above: Expected: 08/24/2024, Expires: Start: 08-24-2024 End: 11-23-2024 Methylmalonate [Moles/volume] in Serum or Plasma [facility] Comment on above: Expected: 08/24/2024, Expires: Start: 08-24-2024 End: 11-23-2024 PROT ELECT SERUM WITH ASHLEY AND INTERP [facility] Comment on above: Expected: 08/24/2024, Expires: Start: 08-24-2024 End: 11-23-2024 Thyrotropin [Units/volume] in Serum or Plasma [facility] Comment on above: Expected: 08/24/2024, Expires: Start: 08-24-2024 End: 08-24-2024 Patient encounter procedure 08/24/2024 9:30 AM EST Office Visit Neurology [address] [place], [place] [id number] Marie Edwards PA-C [address] [place], [place] [id number] Numbness and tingling [R20.0, R20.2] Neurology Comment on above: Numbness and tingling [R20.0, R20.2] Start: 08-22-2024 End: 08-22-2024 Patient encounter procedure 08/22/2024 2:30 PM EST Office Visit Pulmonary Medicine [address] [place], [place] [id number] Jacques Nettles APRN.RETAINING ROOM CUTTER [address] [place] [address] Encounter for screening for lung cancer [Z12.2] Pulmonary Medicine Comment on above: Encounter for screening for lung cancer [Z12.2] Start: 07-29-2024 Annual PCP Team Chronic Disease Visit Annual PCP Team Chronic Disease Visit [facility] Start: 05-02-2024 End: 05-02-2024 Patient encounter procedure [facility] [place] Comment on above: 6 month follow up 6 month follow up/[facility] Start: 04-22-2024 3 comp foot exam completed Diabetic Foot Exam [facility] Start: 04-22-2024 Annual PCP Team Chronic Disease Visit Annual PCP Team Chronic Disease Visit [facility] Start: 04-22-2024 BP Controlled (<130/80) BP Controlled (<130/80) [facility] Start: 04-22-2024 Diabetic foot examination Diabetic Foot Exam [facility] Start: 04-22-2024 Hepatitis B screening Urine Albumin:Creatinine Ratio [facility] Start: 2024 Screening for malignant neoplasm of lung Lung Cancer Screening [facility] Start: 2024 Shingles Vaccine (1 of 2) Shingles Vaccine (1 of 2) [place], [place] Start: 2024 Shingrix Vaccine (1 of 2) Shingrix Vaccine (1 of 2) [facility] Start: 03-20-2024 Covid-19 Vaccine ( season) Covid-19 Vaccine () [facility] Start: 03-20-2024 Influenza vaccination Influenza Vaccine (#1) [facility] Start: 01-24-2024 ANNUAL PCP TEAM CHRONIC DISEASE VISIT ANNUAL PCP TEAM CHRONIC DISEASE VISIT [facility] Start: 11-13-2023 ANNUAL PCP TEAM CHRONIC DISEASE VISIT ANNUAL PCP TEAM CHRONIC DISEASE VISIT [facility] Start: 10-30-2023 Hepatitis B surface antibody level LDL CHOLESTEROL [facility] Start: 09-25-2023 ANNUAL PCP TEAM CHRONIC DISEASE VISIT ANNUAL PCP TEAM CHRONIC DISEASE VISIT [facility] Start: 08-13-2023 ANNUAL PCP TEAM CHRONIC DISEASE VISIT ANNUAL PCP TEAM CHRONIC DISEASE VISIT [facility] Start: 07-23-2023 Hemoglobin A1c measurement HbA1C [facility] Start: 07-23-2023 Hemoglobin A1c/Hemoglobin.total in Blood HbA1C [facility] Start: 06-19-2023 Colonoscopy COLONOSCOPY [facility] Start: 06-19-2023 COLORECTAL CANCER SCREENING COLORECTAL CANCER SCREENING [facility] Start: 06-19-2023 Screening for malignant neoplasm of colon [facility] Start: 06-17-2023 Covid-19 Vaccine (6 - Moderna series) Covid-19 Vaccine (6 - Moderna series) [facility] Start: 05-09-2023 ANNUAL PCP TEAM CHRONIC DISEASE VISIT ANNUAL PCP TEAM CHRONIC DISEASE VISIT [facility] Start: 03-20-2023 Influenza vaccination INFLUENZA (#1) [facility] Start: 02-05-2023 3 comp foot exam completed DIABETIC FOOT EXAM [facility] Start: 02-05-2023 ANNUAL PCP TEAM CHRONIC DISEASE VISIT ANNUAL PCP TEAM CHRONIC DISEASE VISIT [facility] Start: 01-28-2023 Hemoglobin A1c/Hemoglobin.total in Blood HBA1C [facility] Start: 01-23-2023 End: 03-25-2023 ALBUMIN/CREAT RATIO RND UR ALBUMIN/CREAT RATIO RND UR Lab Routine 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) Expected: 01/23/2023, Expires: 03/25/[address] [facility] Work Phone: Comment on above: Expected: 01/23/2023, Expires: 3 Start: 12-11-2022 ANNUAL PCP TEAM CHRONIC DISEASE VISIT ANNUAL PCP TEAM CHRONIC DISEASE VISIT [facility] Start: 11-18-2022 Glaucoma screening Dilated Retinal Exam [facility] Start: 11-18-2022 Hepatitis C antibody, confirmatory test DILATED RETINAL EXAM [facility] Start: 11-17-2022 Patient referral [facility] Work Phone: Start: 11-12-2022 End: 01-12-2023 ALBUMIN/CREAT RATIO RND UR ALBUMIN/CREAT RATIO RND UR Lab Routine Type 1 diabetes mellitus with other specified complication (HCC) Expected: 11/12/2022, Expires: 01/12/[address] [facility] Work Phone: Comment on above: Expected: 11/12/2022, Expires: 3 Start: 11-06-2022 ANNUAL PCP TEAM CHRONIC DISEASE VISIT ANNUAL PCP TEAM CHRONIC DISEASE VISIT [facility] Start: 11-05-2022 Hepatitis B screening URINE ALBUMIN:CREATININE RATIO [facility] Start: 11-05-2022 Hepatitis B surface antibody level LDL CHOLESTEROL [facility] Start: 09-08-2022 End: 11-08-2022 Hemoglobin A1c in Blood HGB A1C Lab Routine 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) Expected: 09/08/2022 (Approximate), Expires: 11/08/[address] [facility] Work Phone: Comment on above: Expected: 09/08/2022 (Approximate), Expi res: 11/08/2022 Start: 09-08-2022 End: 11-08-2022 Lipid 1996 panel - Serum or Plasma LIPID PANEL BASIC Lab Routine Pure hypercholesterolemia Expected: 09/08/2022 (Approximate), Expires: 11/08/[address] [facility] Work Phone: Comment on above: Expected: 09/08/2022 (Approximate), Expi res: 11/08/2022 Start: 09-08-2022 End: 11-08-2022 Thyrotropin [Units/volume] in Serum or Plasma TSH BLD Lab Routine Hypothyroidism, unspecified type Expected: 09/08/2022 (Approximate), Expires: 11/08/[address] [facility] Work Phone: Comment on above: Expected: 09/08/2022 (Approximate), Expi res: 11/08/2022 Start: 08-05-2022 Hemoglobin A1c/Hemoglobin.total in Blood HBA1C [facility] Start: 06-19-2022 Patient discharge [facility] Work Phone: Start: 05-08-2022 End: 07-08-2022 Basic metabolic 2000 panel - Serum or Plasma BASIC METABOLIC PNL Lab Routine 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) Expected: 05/08/2022, Expires: 07/08/[address] [facility] Work Phone: Comment on above: Expected: 05/08/2022, Expires: 2 Start: 05-08-2022 End: 07-08-2022 Hemoglobin A1c in Blood HGB A1C Lab Routine 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) Expected: 05/08/2022, Expires: 07/08/[address] [facility] Work Phone: Comment on above: Expected: 05/08/2022, Expires: 2 Start: 05-08-2022 End: 07-08-2022 HEPATITIS A ANTIBODY, IGG HEPATITIS A ANTIBODY, IGG Lab Routine Hep C w/o coma, chronic (HCC) Expected: 05/08/2022, Expires: 07/08/[address] [facility] Work Phone: Comment on above: Expected: 05/08/2022, Expires: 2 Start: 05-08-2022 End: 07-08-2022 Hepatitis B virus surface Ab [Presence] in Serum HEP B SURF AB QUAL Lab Routine Hep C w/o coma, chronic (HCC) Expected: 05/08/2022, Expires: 07/08/[address] [facility] Work Phone: Comment on above: Expected: 05/08/2022, Expires: 2 Start: 05-08-2022 End: 07-08-2022 HIV 1+2 Ab [Presence] in Serum or Plasma by Immunoassay HIV 1 2 COMBO(AG/AB),WITH REFLEX TO DIFFERENTIATION Lab Routine Encounter for screening for HIV Expected: 05/08/2022, Expires: 07/08/[address] [facility] Work Phone: Comment on above: Expected: 05/08/2022, Expires: 2 Start: 04-04-2022 COVID-19 VACCINE (6 - Moderna series) COVID-19 VACCINE (6 - Moderna series) [facility] Start: 03-20-2022 Influenza vaccination [facility] Start: 02-04-2022 Hemoglobin A1c/Hemoglobin.total in Blood HBA1C [facility] Start: 11-06-2021 End: 01-06-2022 Comprehensive metabolic 2000 panel - Serum or Plasma [facility] Work Phone: Comment on above: Expected: 11/06/2021, Expires: 2 Start: 11-06-2021 End: 01-06-2022 FERRITIN BLD [facility] Work Phone: Comment on above: Expected: 11/06/2021, Expires: 2 Start: 11-06-2021 End: 01-06-2022 IRON + TIBC [facility] Work Phone: Comment on above: Expected: 11/06/2021, Expires: 2 Start: 11-06-2021 End: 01-06-2022 Prostate specific Ag [Mass/volume] in Serum or Plasma [facility] Work Phone: Comment on above: Expected: 11/06/2021, Expires: 2 Start: 11-06-2021 End: 01-06-2022 Thyrotropin [Units/volume] in Serum or Plasma [facility] Work Phone: Comment on above: Expected: 11/06/2021, Expires: 2 Start: 10-22-2021 End: 12-22-2021 ALBUMIN/CREAT RATIO RND UR ALBUMIN/CREAT RATIO RND UR Lab Routine 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) Expected: 10/22/2021, Expires: 12/22/[address] [facility] Work Phone: Comment on above: Expected: 10/22/2021, Expires: 2 Start: 10-22-2021 End: 12-22-2021 Basic metabolic 2000 panel - Serum or Plasma BASIC METABOLIC PNL Lab Routine 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) Expected: 10/22/2021, Expires: 12/22/[address] [facility] Work Phone: Comment on above: Expected: 10/22/2021, Expires: 2 Start: 10-22-2021 End: 12-22-2021 CBC panel - Blood by Automated count CBC Lab Routine 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) Expected: 10/22/2021, Expires: 12/22/[address] [facility] Work Phone: Comment on above: Expected: 10/22/2021, Expires: 2 Start: 10-22-2021 End: 12-22-2021 Hemoglobin A1c/Hemoglobin.total in Blood HGB A1C Lab Routine 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) Expected: 10/22/2021, Expires: 12/22/[address] [facility] Work Phone: Comment on above: Expected: 10/22/2021, Expires: 2 Start: 10-22-2021 End: 12-22-2021 LIPID PANEL BASIC LIPID PANEL BASIC Lab Routine Hyperlipidemia Expected: 10/22/2021, Expires: 12/22/[address] [facility] Work Phone: Comment on above: Expected: 10/22/2021, Expires: 2 Start: 10-22-2021 End: 12-22-2021 SCHEDULE LAB TESTING SCHEDULE LAB TESTING Lab Routine Expected: 10/22/2021, Expires: 12/22/[address] [facility] Work Phone: Comment on above: Expected: 10/22/2021, Expires: 2 Start: 07-09-2021 Creatinine [facility] [place] [place] Start: 07-09-2021 Potassium [facility] [place] [place] Start: 07-05-2021 HbA1c (Bld) [Mass fraction] A1C test (Diabetic or Prediabetic) [facility] [employer] [place] Start: 11-16-2020 Creatinine measurement Creatinine [facility] [place] Start: 11-16-2020 Lipid panel Lipid screen [place], [place] Start: 11-16-2020 Potassium monitoring Potassium monitoring [facility] [place] [place] Start: 09-07-2020 Creatinine monitoring Creatinine monitoring [facility] [place] [facility] [place] Start: 09-07-2020 Potassium monitoring Potassium monitoring [facility] [place] [place] Start: 07-09-2020 Creatinine monitoring Creatinine monitoring [facility] Work Phone: Start: 07-09-2020 Potassium monitoring Potassium monitoring [facility] Work Phone: Start: 06-11-2020 A1C test (Diabetic or Prediabetic) A1C test (Diabetic or Prediabetic) [facility] [place] [facility] [place] Start: 02-16-2020 HbA1c (Bld) [Mass fraction] A1C test (Diabetic or Prediabetic) [facility] [place] [employer] [place] Start: 01-30-2020 End: 01-30-2020 Office Visit 01/30/2020 Office Visit Family Medicine Elizabeth Nelson, DO [address], [place] [address] [facility] Start: 01-27-2020 Hepatitis C antibody, confirmatory test DILATED RETINAL EXAM [facility] Start: 01-21-2020 Diabetic retinal exam Diabetic retinal exam [facility] Work Phone: Start: 01-10-2020 Annual Wellness Visit (AWV) Annual Wellness Visit (AWV) [facility], [place] Start: 09-11-2019 Hemoglobin A1c/Hemoglobin.total in Blood HBA1C [facility] Start: 2019 COLOGUARD (FIT-DNA) COLOGUARD (FIT-DNA) [facility] Start: 2019 Colonoscopy COLONOSCOPY [facility] Start: 2019 COLORECTAL CANCER SCREENING COLORECTAL CANCER SCREENING [facility] Start: [address] COLONOGRAPHY [facility] Start: 2019 FECAL OCCULT BLOOD FECAL OCCULT BLOOD [facility] Start: 2019 Screening for malignant neoplasm of colon [facility] Start: 2019 SIGMOIDOSCOPY SIGMOIDOSCOPY [facility] Start: 04-02-2019 3 comp foot exam completed DIABETIC FOOT EXAM [facility] Start: 03-20-2019 Influenza vaccination Flu vaccine (#1) [facility] Work Phone: Start: 01-06-2019 Annual Wellness Visit (AWV) Annual Wellness Visit (AWV) [facility] Work Phone: Start: 10-07-2017 A1C test (Diabetic or Prediabetic) A1C test (Diabetic or Prediabetic) [facility] Work Phone: Start: 10-07-2017 Diabetic microalbuminuria test Diabetic microalbuminuria test [facility] Work Phone: Start: 10-07-2017 Lipid screen Lipid screen [facility] Work Phone: Start: 06-25-2017 Hepatitis A vaccine (2 of 2 - Risk 2-dose series) Hepatitis A vaccine (2 of 2 - Risk 2-dose series) [facility] Work Phone: Start: 05-26-2017 HEPATITIS B (3 of 3 - Hep B Twinrix risk 3-dose series) [facility] Start: 03-17-2017 PNEUMOCOCCAL (2 - PCV) PNEUMOCOCCAL (2 - PCV) [facility] Start: 01-21-2017 Hepatitis B vaccine (2 of 3 - Risk 3-dose series) Hepatitis B vaccine (2 of 3 - Risk 3-dose series) [employer] Work Phone: Start: 11-01-2016 Hepatitis B screening URINE ALBUMIN:CREATININE RATIO [facility] Start: 11-01-2016 Hepatitis B surface antibody level LDL CHOLESTEROL [facility] Start: 1993 DTaP/Tdap/Td vaccine (1 - Tdap) DTaP/Tdap/Td vaccine (1 - Tdap) [place], [place] Start: 1993 HEPATITIS B (1 of 3 - Risk 3-dose series) HEPATITIS B (1 of 3 - Risk 3-dose series) [facility] Start: 1993 Hepatitis B vaccine (2 of 3 - CpG risk 3-dose series) Hepatitis B vaccine (2 of 3 - CpG risk 3-dose series) [place], [place] Start: 1993 Urine microalbumin profile DTAP,TDAP,TD (1 - Tdap) [facility] Start: 1992 ANNUAL PCP TEAM CHRONIC DISEASE VISIT ANNUAL PCP TEAM CHRONIC DISEASE VISIT [facility] Start: 1992 BP CONTROLLED (<130/80) BP CONTROLLED (<130/80) [facility] Start: 1992 HIV SCREENING HIV SCREENING [facility] Start: 1990 ONE PNEUMOVAX PRIOR TO AGE 65 ONE PNEUMOVAX PRIOR TO AGE 65 [facility] Start: 1985 DTaP/Tdap/Td vaccine (1 - Tdap) DTaP/Tdap/Td vaccine (1 - Tdap) [facility] Work Phone: Start: 1984 [object Object] Diabetic foot exam [facility] Work Phone: Start: 1984 Diabetic foot examination Diabetic foot exam [place], [place] Start: 1980 PNEUMOCOCCAL (1 - PCV) PNEUMOCOCCAL (1 - PCV) [facility] Start: 1979 COVID-19 VACCINE (1) COVID-19 VACCINE (1) [facility] Start: 1975 HEPATITIS A (1 of 2 - Risk 2-dose series) HEPATITIS A (1 of 2 - Risk 2-dose series) [facility] Ghmnr-1-ulqjiqwjywz. tumo r marker [Units/volume] in Serum or Plasma [facility] Work Phone: Amphetamines [Presen ce] in Urine by Screen method >1000 ng/mL [facility] Angiotensin converti ng enzyme [Enzymatic activity/volume] in Serum or Plasma [facility] Work Phone: End: 07-10-2019 Basic Metabolic Panel w/ Reflex to MG Basic Metabolic Panel w/ Reflex to MG Lab Routine Tomorrow AM for 1 Occurrences starting 07/10/2019 until 07/10/2019 [employer] Work Phone: Comment on above: Tomorrow AM for 1 Occurrences starting 1 09/10/2018 until 07/10/2019 Benzodiazepine measurement, urine [facility] CBC Auto Differential CBC Auto D ifferential Lab Routine Daily until discontinued starting 07/05/2020, 5 completed [employer] Comment on above: Daily until discontinued starting 2019, 5 completed End: 07-10-2019 CBC W Auto Differential panel - Blood CBC auto differential Lab Routine Tomorrow AM for 1 Occurrences starting 07/10/2019 until 07/10/2019 [employer] Work Phone: Comment on above: Tomorrow AM for 1 Occurrences starting 1 09/10/2018 until 07/10/2019 Ceruloplasmin [Mass/volume] in Serum or Plasma [facility] Work Phone: Cocaine measurement, urine [facility] Comprehensive metabo lic 2000 panel Comprehensive Metabolic Panel Lab Routine Daily until discontinued starting 07/05/2020, 5 completed [employer] Comment on above: Daily until discontinued starting 2019, 5 completed Copper [Moles/volume ] in Serum or Plasma [facility] Work Phone: End: 12-07-2019 CT ABDOMEN W CONTRAST CT ABDOMEN W CONTRAST Imaging Routine Epigastric mass 1 Occurrences starting 12/07/2019 until 12/07/2019 [employer] Comment on above: 1 Occurrences starting 12/07/2019 until 12/07/2019 End: 09-21-2025 CT Chest for screening WO contrast CT LUNG SCREEN WO IVCON Radiology Routine Encounter for screening for lung cancer Tobacco use current 1 Occurrences starting 08/22/2024 until 09/21/[address] [facility] Work Phone: Comment on above: 1 Occurrences starting 08/22/2024 until 09/21/2025 Culture, Anaerobic Culture, Anae robic Microbiology Routine 07/06/2020 1:58 PM EST [employer] Culture, Blood 1 Culture, Blood 1 Microbiology STAT 07/04/2020 8:21 PM EST [facility], [place] Culture, Blood 2 Culture, Blood 2 Microbiology STAT 07/04/2020 7:58 PM [facility], [place] Culture, Tissue Culture, Tissue Microbiology Routine 07/06/2020 1:58 PM [facility], [place] fentaNYL [Presence] in Urine by Screen method [facility] Glucose [Mass/volume ] in Serum or Plasma [facility] Haptoglobin [Mass/volume] in Serum or Plasma [facility] Work Phone: End: 07-10-2019 Hemoglobin A1c/Hemoglobin.total in Blood Hemoglobin A1C Lab Routine Tomorrow AM for 1 Occurrences starting 07/10/2019 until 07/10/2019 [employer] Work Phone: Comment on above: Tomorrow AM for 1 Occurrences starting 1 09/10/2018 until 07/10/2019 Hepatitis A virus Ig M Ab [Presence] in Serum [facility] Work Phone: Hepatitis B core antibody measurement, IgM type [facility] Work Phone: Hepatitis B surface antigen measurement [facility] Work Phone: Hepatitis B virus co re Ab [Presence] in Serum [facility] Work Phone: Hepatitis C antibody measurement [facility] Work Phone: Initiate Oxygen Ther apy Protocol Initiate Oxygen Therapy Protocol Respiratory Care Routine Daily until discontinued starting 07/09/2019 [employer] Work Phone: Comment on above: Daily until discontinued starting 2018 Methadone measuremen t, urine [facility] End: 09-23-2025 MR Brain WO contrast MRI BRAIN WO IVCON Radiology Routine Numbness and tingling Cerebral infarction, unspecified mechanism (HCC) 1 Occurrences starting 08/24/2024 until 09/23/2025 [facility] Comment on above: 1 Occurrences starting 08/24/2024 until 09/23/2025 End: 09-23-2025 MR Cervical spine WO contrast MRI CERVICAL SPINE WO IVCON Radiology Routine Spinal stenosis of cervical region 1 Occurrences starting 08/24/2024 until 09/23/2025 [facility] Comment on above: 1 Occurrences starting 08/24/2024 until 09/23/2025 Neutrophil cytoplasm ic Ab.classic [Units/volume] in Serum [facility] Work Phone: Oxygen therapy [Mini mum Data Set] [facility] on above: Daily until discontinued starting 2019 Daily until disconti nued starting 07/06/2020 P-ANCA measurement [facility] Work Phone: Patient Education ED Chest Pain, Uncertain Cause ED Abdominal Pain Unkn Cause Male... [facility] Work Phone: Patient referral [facility] Work Phone: End: 07-06-2020 PBP2A TEST FOR S. AUREUS PBP2A TEST FOR S. AUREUS Lab Routine Once for 1 Occurrences starting 07/06/2020 until 07/06/2020 [facility] on above: Once for 1 Occurrences starting 07/06/20 20 until 07/06/2020 PBP2A TEST FOR S. AUREUS PBP2A T EST FOR S. AUREUS Lab Routine 07/06/2020 1:58 PM EST [facility] [place] Phencyclidine [Prese nce] in Urine [facility] POCT glucose [facility] Work Phone: Comment on above: 4X Daily (AC & HS) until discontinued st arting 07/04/2020 As Needed until disc ontinued starting 07/04/2020 4X Daily (AC & HS) u ntil discontinued starting 07/09/2019 As Needed until disc ontinued starting 07/09/2019 End: 02-24-2023 PVR ANK PRESS UNL VAS LAB PVR ANK PRESS UNL VAS LAB Vascular Lab Routine Diminished pulses in lower extremity 1 Occurrences starting 02/24/2022 until 02/24/[address] [facility] Work Phone: Comment on above: 1 Occurrences starting 02/24/2022 until 02/24/2023 End: 09-15-2025 Screening colonoscopy COLONOSCOPY SCREENING Endoscopy Routine Screening for malignant neoplasm of colon 1 Occurrences starting 09/15/2024 until 09/15/[address] [facility] Work Phone: Comment on above: 1 Occurrences starting 09/15/2024 until 09/15/2025 Smooth muscle Ab [Presence] in Serum [facility] Work Phone: End: 07-06-2020 Tissue Homogenization Tissue Homogenization Lab Routine Once for 1 Occurrences starting 07/06/2020 until 07/06/2020 [place] Comment on above: Once for 1 Occurrences starting 07/06/20 20 until 07/06/2020 Tissue Homogenization Tissue Belkys ogenization Lab Routine 07/06/2020 1:58 PM EST [place], [place] Urine cannabinoid measurement [facility] End: 07-09-2019 Urine Drug Screen Urine Drug Screen Lab Routine One Time for 1 Occurrences starting 07/09/2019 until 07/09/2019 [facility] Work Phone: Comment on above: One Time for 1 Occurrences starting 06/20 until 07/09/2019 Urine opiate measurement [facility] Immunizations Immunization Date Immunization Notes Care Provider [facility] 08-10-2024 COVID-19 vaccine, ag e 12+ yr (PFIZER-BIONTECH COMIRNATY) Margarita Livan 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 Work Phone: [facility] 08-10-2024 influenza, seasonal, injectable Margarita Livan 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 Work Phone: [facility] 04-22-2023 COVID-19 vaccine, ag e 12+ yr, 2022- season (PFIZER-BIONTECH) Margarita Older 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 Work Phone: [facility] 04-22-2023 influenza, injectabl e, quadrivalent, contains preservative Margarita Older 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 Work Phone: [facility] 04-22-2023 influenza virus vaccine, unspecified formulation Sonam Evans MA [facility] 01-23-2023 tetanus toxoid, redu rl diphtheria toxoid, and acellular pertussis vaccine, adsorbed Jah Mas MD Work Phone: [facility] 11-12-2022 pneumococcal Conjuga te, unspecified formulation Margarita Older 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 Work Phone: 11-12-2022 pneumococcal (PCV20) vaccine, 20 valent (PREVNAR 20) Margarita Older 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 Work Phone: [facility] 05-09-2022 hepatitis B vaccine, adult dosage Jah Mas MD Work Phone: [facility] 05-09-2022 influenza, injectabl e, quadrivalent, contains preservative Jah Mas MD Work Phone: [facility] 08-21-2021 Covid (Pfizer) Dr. Samson martinez Work Phone: [facility] 06-26-2021 influenza, injectabl e, quadrivalent, preservative free Dr. Jah Mas MD Work Phone: [facility] 06-26-2021 influenza, seasonal, injectable Dr. Samson Garcia Work Phone: [facility] 11-15-2020 Covid (Moderna) Dr. Samson Garcia Work Phone: [facility] 10-18-2020 Covid (Moderna) Dr. 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 Samson Garcia Work Phone: [facility] 09-02-2018 influenza, injectabl e, quadrivalent, contains preservative Marie London MD Work Phone: [facility] Work Phone: 04-24-2017 influenza, injectabl e, quadrivalent, preservative free Marie London MD Work Phone: [facility] Work Phone: 12-24-2016 hepatitis A vaccine, adult dosage Margarita Older 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[facility] Work Phone: [facility] Work Phone: 12-24-2016 hepatitis A vaccine, unspecified formulation Marie London MD Work Phone: [facility] Work Phone: 12-24-2016 hepatitis B vaccine, adult dosage Margarita Older 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 Work Phone: [facility] Work Phone: 12-24-2016 hepatitis B vaccine, unspecified formulation Marie London MD Work Phone: [facility] Work Phone: 03-17-2016 pneumococcal polysaccharide vaccine, 23 valent Marie London MD Work Phone: [facility] Work Phone: 03-14-2016 Influenza Vaccine, unspecified formulation Marie London MD Work Phone: [facility] Work Phone: 09-10-2011 hepatitis A and hepatitis B vaccine Margarita Older 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[facility] Work Phone: [facility] Work Phone: Payers Date Payer Category Payer Self-pay [id number] 2023 Medicaid [id number] 2021 Medicaid [employer] [id number] 2021-[facility] [phone] [address] [place] [address] Medicaid [id number] 2021 Medicare (Managed Care) JARETH Rosemarie TREJO GILSON HMO [id number] 2021 Unknown JARETH BLUE CROS S AND BLUE SHIELD ANTHITZEL [facility] [id number] 2021-Present [phone] [address] [place] [address] O [id number] 2021 Unknown [id number] 2021 Medicare [id number] 2020 Unknown [id number] 2019 Unknown [facility] xxxxxxxxxxx 2019-Present [phone] [address] [place] [address] xxxxxxxxxxx [id number] 2018 Medicare [facility] MEDICARE [facility] MEDICARE COMPLETE xxxxxxxxx 2018-Present xxxxxxxxx [id number] 1998 Medicaid [id number] Unknown [id number] Unknown [id number] Unknown [id number] Unknown [id number] Unknown [id number] Unknown [id number] Unknown [id number] Unknown [id number] Unknown [id number] Unknown [id number] Unknown [id number] Social History Date Type Detail Facility Start: 09-07-2019 End: 01-06-2025 Tobacco smoking status AKIS Current every day smoker [facility] History of tobacco use Cigarette Smoker S [facility] Work Phone: Start: 09-07-2019 End: 01-23-2023 Cigarettes smoked current (pack per day) - Reported [facility] Start: 09-07-2019 End: 09-01-2024 [facility] [place] [place] Start: 03-14-2016 Alcohol Comment Rare [facility] Work Phone: Start: 1975 Sex Assigned At Not on file S [facility] Work Phone: Start: 07-09-2020 End: 08-10-2024 Tobacco use and exposure Never used [employer] Start: 11-26-2021 End: 05-09-2022 Exposure to SARS-CoV-2 (event) Not sure [employer] [facility] Start: 07-09-2019 End: 09-01-2019 Alcohol intake Current drinker of alcohol (finding) [facility] Work Phone: Start: 09-24-2021 End: 12-04-2022 Tobacco smoking status NHIS Unknown if ever smoked [facility] Start: 08-13-2020 None [facility] Start: 08-13-2020 Alone [facility] Start: 08-14-2020 Cigarettes [facility] Start: 1975 Sex Assigned At Male W [facility] Start: 01-23-2023 End: 08-10-2024 Tobacco use panel [facility] National Score (1-10 0), lower number is lower risk 80 [facility] How often to you hav e a drink containing alcohol? Never [facility] Work Phone: Medical Equipment Procedure Code Equipment Code Equipment Origin al Text Equipment Identifier Dates [id number] Start: 07-06-2018 Comment on above: USE WITH INSULIN PEN S 4TIMES DAILY type II Dm, E11. 9, test once per day [id number] Start: 09-30-2019 1 each by Does n ot apply route daily [id number] Start: 09-30-2019 1 each by Does n ot apply route 4 times daily [id number] Start: 09-30-2019 1 each by Does n ot apply route daily [id number] Start: 11-24-2019 End: 12-24-2019 Clamp External Fixation Tube To Tube Mr Conditional Nonsterile - [id number] Start: 06-10-2019 Post 11mm 30d External Fixation Outrigger Mr Safe Nonsterile - [id number] Start: 06-10-2019 Clamp Large Exte rnal Fixation 6 Position Pin Nonsterile - [id number] Start: 06-10-2019 Clamp Large Exte rnal Fixation Combination Clip On Self Hold Nonsterile - [id number] Start: 06-10-2019 Pin Yolandamann 6m m Stainless Steel 225mm Fixation Transfixation Mr - [id number] Start: 06-10-2019 Benny 11mm Carbon Fiber 200mm External Fixation Radiolucent Mr Conditional - [id number] Start: 06-10-2019 Benny 11mm Carbon Fiber 400mm External Fixation Self Drilling Nonsterile - [id number] Start: 06-10-2019 Benny 11mm Carbon Fiber 400mm External Fixation Self Drilling Nonsterile - [id number] Start: 06-10-2019 Benny 11mm Carbon Fiber 150mm External Fixation Radiolucent Mr Conditional - [id number] Start: 06-10-2019 Screw Schanz 5mm Xlong Blunt Samaria Stainless Steel 170mm 50mm External - [id number] Start: 06-10-2019 USE WITH INSULIN PENS 4TIMES DAILY [id number] Start: 01-23-2023 Blood Sugar Diagnostic (Onetouch Verio Test Strips) strip Start: 05-02-2024 Blood Sugar Diagnostic (Onetouch Verio Test Strips) strip Start: 05-02-2024 Goals Date Patient Goal Desired Activity /State Functional Status Date Assessment Result Facility 09-20-2021 Functional status Assist with Urinal [facility] Work Phone: 07-26-2019 Are you deaf, or do you have serious difficulty hearing No 07/26/2019 6:01 PM Mitchell Medina, MATT No [facility] 07-26-2019 Are you blind, or do you have serious difficulty seeing, even when wearing glasses No 07/26/2019 6:01 PM Mitchell Medina, RN No [facility] 07-26-2019 Do you have serious difficulty walking or climbing stairs Yes 07/26/2019 6:01 PM Mitchell Medina, RN Yes [facility] 07-26-2019 Do you have difficul ty dressing or bathing No 07/26/2019 6:01 PM Mitchell Medina, RN No [facility] 07-26-2019 Because of a physica l, mental, or emotional condition, do you have difficulty doing errands alone such as visiting a physician's office or shopping Yes 07/26/2019 6:01 PM Mitchell Medina, MATT Yes [facility] Mental Status Date Assessment Result Facility 01-06-2025 Cognitive function Level Of Cons ciousness Awake;Inappropriate;Disorie nted [facility] Work Phone: 06-19-2022 Cognitive function Voice/Name [facility] Work Phone: 12-11-2021 Cognitive function Awake;Alert;A ppropriate;Fol lows Commands [facility] Work Phone: 09-24-2021 Cognitive function Level Of Cons ciousness Awake;Alert;Appropriate;Fol lows Commands [facility] Work Phone: 09-20-2021 Cognitive function Voice/Name [facility] Work Phone: 07-26-2019 Because of a physica l, mental, or emotional condition, do you have serious difficulty concentrating, remembering, or making decisions No 07/26/2019 6:01 PM Mitchell Medina, MATT No [facility] Clinical Notes 06-09-2019 to 01-06-2025 Note Date & Type Note Facility 01-06-2025 Radiology Diagnostic study note [facility] Imaging Services [address] [place] [address] [id number] Brain/Head without Contrast MR#: [id number] Acct: [id number] Name: TORI CANTOR Rep #: [id number] : 1975 M 49 From: Patricio Dean MD PCP: Dr. Jah Mas MD Status: R EG ER Study:Brain/Head without Contrast Date of Exa m: 01/06/25 Exam# [id number] Ordering Dr: Maryana Burton PROCEDURE: BRAIN/HEAD WITHOUT CONTRAST 01/06/2025 REASON FOR EXAM: ALTERED MENTAL STATUS TECHNIQUE: BRAIN/HEAD WITHOUT CONTRAST Coronal and Sagittal reconstruction series were provided. One or more dose reduction techniques were used (e.g., Automated exposure control, adjustment of the mA and/or kV according to patient size, use of iterative reconstruction technique. RADIATION DOSE SUMMARY: CTDlvol: 94.12 mGy DLP: 2768.81 mGycm COMPARISON: None. FINDINGS: There is no evidence of acute intracranial hemorrhage or infarction. There are no abnormal intracranial masses or mass effects. The ventricular system and basilar cisterns are unremarkable. The skull base and calvarium are normal. There is nasal septal deviation to theright. The paranasal sinuses and mastoid air cells are unremarkable. The intraorbital contents are normal. The visualized extracranial soft tissues are normal. CT/Brain/Head without Contrast IMPRESSION: No evidence of intracranial pathology. Reading Location: [id number] CC: Dr. Jah Mas MD; AMADEO William ~ Av Specialist: Signed [facility] Work Phone: 01-06-2025 Radiology Diagnostic study note [facility] Imaging Services [address] [place] [id number] Chest 1 View (Portable) MR#: [id number] Acct: [id number] Name: TORI CANTOR Rep #: [id number] : 1975 M 49 From: Naya Quiroz MD PCP: Dr. Jah Mas MD Status: R EG ER Study:Chest 1 View (Portable) Date of Exam: 01/06/25 Exam# [id number] Ordering Dr: Maryana Burton EXAM: XR Chest, 1 View CLINICAL INDICATION: WEAKNESS TECHNIQUE: Frontal view of the chest. COMPARISON: No relevant prior studies available. FINDINGS: LUNGS AND PLEURAL SPACES: Pulmonary congestion and edema. Pneumonia cannot be excluded. No pneumothorax. HEART: Unremarkable. No cardiomegaly. MEDIASTINUM: Unremarkable. Normal mediastinal contour. BONES/JOINTS: Unremarkable. No acute fracture. RAD/Chest 1 View (Portable) IMPRESSION: Pulmonary congestion and edema. Pneumonia cannot be excluded. Reading Location: [id number] CC: Dr. Jah Mas MD; AMADEO William ~ Av Specialist: Signed [facility] 12-08-2024 Note HNO ID: [id number] Author: JAH MAS MD Service: ? Author Type: Physician Type: Progress Notes Filed: 12/08/2024 15:38 Note Text: This note was created using The Other Guys[employer]. Subjective Patient presents with: 4 month follow-up Tori Cantor is a 49 year old male. Recording using ambient myQaa software for draft documentation of the visit was discussed with the patient/authorized technical service representative; all questions welcomed and answered. Patient/authorized technical service representative agreed to proceed Tori is a 49-year-old male with a history of DM, HTN, and depression, presenting for follow-up. Tori was seen by Rebecca Hoffman yesterday and reports that his blood pressure has been elevated despite current medications. He is currently on an insulin pump, which he states is not working optimally. He is using a LibreSensor to manually monitor glucose levels and reports that the Dexcom sensor was initially effective but encountered issues with compatibility and functionality. He is scheduled to follow up in 4 weeks to address these issues. His most recent A1c is 10.3%, down from 12.4% in July. Tori continues to smoke and expresses a desire to quit but has not tried any cessation aids. He denies chest pain, dyspnea, abdominal pain, emesis, or diarrhea. He reports a left earache for the past few weeks, accompanied by popping and flaking, but denies fever. He has a history of seasonal allergies, causing rhinorrhea and coughing, but is not currently taking any medication for it. He has not had a dilated eye exam since his cataract surgery 2.5 years ago, performed by Dr. Juan F Nuñez at [facility]. He reports ongoing numbness in his head and hands, which is monitored by neurology. He also reports back pain and is hesitant about surgical intervention. Tori is overdue for a colonoscopy but has encountered scheduling issues due to his use of marijuana for pain management, which requires an anesthesiologist. He is currently taking lisinopril 40 mg and amlodipine 5 mg for blood pressure control, as well as Zoloft for depression and anxiety. He reports worsening depression due to recent family deaths and increased stress from managing his father's estate. 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 Current Outpatient Medications Medication Sig amitriptyline (ELAVIL) 25 mg tablet Take 1 tablet by mouth daily at bedtime. atorvastatin (LIPITOR) 40 mg tablet Take 1 tablet by mouth daily at bedtime. For cholesterol. pantoprazole DR (PROTONIX) 40 mg tablet Take 1 tablet by mouth two times a day. sertraline (ZOLOFT) 50 mg tablet Take 1 tablet by mouth once daily. gabapentin (NEURONTIN) 300 mg capsule Take 1 cap three times a day during the day and 2 caps at bedtime lisinopril (ZESTRIL) 40 mg tablet Take 1 tablet by mouth once daily. levothyroxine (SYNTHROID) 25 mcg tablet Take 1 tablet by mouth every morning. albuterol HFA (PROVENTIL HFA, VENTOLIN HFA) 90 mcg/actuation inhaler Inhale 2 Puffs as instructed every 4 hours as needed for wheezing/shortness of breath. Insulin Dudley, Disposable, (BD ULTRAFINE III MINI PEN) 31 gauge x 3/16 USE WITH INSULIN PENS 4TIMES DAILY flash glucose sensor (FREESTYLE MAIKEL 2 SENSOR) kit Check 8 times per day amLODIPine (NORVASC) 10 mg tablet Take 1 tablet by mouth once daily. fluticasone (FLONASE) 50 mcg/actuation nasal spray Use 1 spray in each nostril daily at bedtime. insulin lispro (HUMALOG KWIKPEN) 100 unit/mL Inject subcutaneously continuous. Insulin Pump. Per [facility]. insulin shading painter cart,aut,G6/7,cntr (OMNIPOD 5 G6-G7 INTRO KT,GEN5,) crtg Inject subcutaneously. No current facility-administered me (more content not included)... [facility] 12-07-2024 Evaluation note Diagnosis Onset Date Resolution Hypertension chronic December 07 2:59pm Insulin pump titration chronic 2024 2:59pm Presence of insulin pump chronic December 07, 2024 2:59pm Type 1 diabetes, uncontrolled, with neuropathy chronic December 07, 2024 2:59pm Acute renal failure acute January 06, 2025 4:37pm Altered mental status acute Dec 4:37pm Dehydration acute January 06 4:37pm DKA (diabetic ketoacidoses) acute January 06, 2025 4:37pm Leukocytosis acute January 06, 2 025 4:37pm Transaminitis acute January 06, 2025 4:37pm [facility] Work Phone: [phone]) 152-653905-15-2025 History of Present illness Narrative* Edgar Castillo RPh - 12/01/2024 11:47 AM EDT Primary Care Pharmacy Panel Management This patient has been identified through Specialty Integration/Value-Based Operations Diabetes Registry Review by the primary care pharmacy team. After review, determined that the patient is not a candidate for pharmacy referral at this time dueto follows closely with [facility]. Works with Brian Lima. Edgar Castillo RPh documented [facility]25 NoteHNO ID: [id number] Author: EDGAR CASTILLO RPh Service: ? Author Type: Pharmacist Type: Progress Notes Filed: 12/01/2024 11:47 Note Text: Primary Care Pharmacy Panel Management This patient has been identified through Specialty Integration/Value-Based Operations Diabetes Registry Review by the primary care pharmacy team. After review, determined that the patient is not a candidate for pharmacy referral at this time due to follows closely with [facility]. Works with Brian Lima. [facility] NotePatient Outreach (PHMEWO) TORI CANOTR ([id number]) 1975 M Date Time Provider Department 12/01/24 EDGAR CASTILLO During your visit today, we recorded the following information about you: Edgar Castillo RPh 12/01/2024 11:47 AM Signed Primary Care Pharmacy Panel Management This patient has been identified through Specialty Integration/Value-Based Operations Diabetes Registry Review by the primary care pharmacy team. After review, determined that the patient is not a candidate for pharmacy referral at this time due to follows closely with [facility]. Works with Brian [facility]ima. Edgar Castillo RPh Allergies As of Date: 12/01/2024 (No Known Allergies) Date Reviewed: 09/01/2024 Reviewed by: Anita Todd LPN - Fully Assessed Prescriptions as of 12/01/2024 - amitriptyline (ELAVIL) 25 mg tablet Take 1 tablet by mouth daily at bedtime. - amLODIPine (NORVASC) 5 mg tablet Take 1 tablet by mouth once daily. - atorvastatin (LIPITOR) 40 mg tablet Take 1 tablet by mouth daily at bedtime. For cholesterol. - pantoprazole DR (PROTONIX) 40 mg tablet Take 1 tablet by mouth two times a day. - sertraline (ZOLOFT) 50 mg tablet Take 1 tablet by mouth once daily. - gabapentin (NEURONTIN) 300 mg capsule Take 1 cap three times a day during the day and 2 caps at bedtime - lisinopril (ZESTRIL) 40 mg tablet Take 1 tablet by mouth once daily. - levothyroxine (SYNTHROID) 25 mcg tablet Take 1 tablet by mouth every morning. - insulin lispro (HUMALOG KWIKPEN) 100 unit/mL Inject 6 Units subcutaneously three times a day with meals. Plus sliding scale. Per [facility]. - albuterol HFA (PROVENTIL HFA, VENTOLIN HFA) 90 mcg/actuation inhaler Inhale 2 Puffs as instructed every 4 hours as needed for wheezing/shortness of breath. - Insulin Dudley, Disposable, (BD ULTRAFINE III MINI PEN) 31 gauge x 3/16 USE WITH INSULIN PENS 4TIMES DAILY - flash glucose sensor (FREESTYLE MAIKEL 2 SENSOR) kit Check 8 times per day Problem List As Of Date 12/01/2024 Noted Resolved Hypertension [I10] 11/23/2009 Abdominal pain, right lower quadrant [R10.31] 11/23/2009 01/25/2016 Abdominal pain, left lower quadrant [R10.32] 11/23/2009 01/25/2016 GERD (gastroesophageal reflux disease) [K21.9] 01/25/2016 Microalbuminuria [R80.9] 01/25/2016 History of diabetic gastroparesis [Z86.39] 01/25/2016 Diabetic polyneuropathy associated with type 1 *01/25/2016 Depression with anxiety [F41.8] 01/25/2016 Lactose intolerance [E73.9] 07/30/2016 02/14/2017 Charcot's joint of right foot [M14.671] 11/11/2016 Obesity [E66.9] 02/11/2017 04/05/2018 Hyperlipidemia [E78.5] 02/14/2017 Hep C w/o coma, chronic (HCC) [B18.2] 09/29/2018 10/30/2023 Moderate episode of recurrent major depressive *09/02/2018 09/29/2018 History of drug abuse in remission (HCC) [F19.1*09/29/2018 04/22/2023 IVDU (intravenous drug user) [F19.90] 05/27/2019 11/06/2021 Tobacco abuse [Z72.0] 05/27/2019 Nicotine use disorder, F17.2 [F17.200] 05/31/2019 02/05/2022 Sepsis (HCC) [A41.9] 06/09/2019 06/27/2021 Amputee, below knee, left (HCC) [Z89.512] 07/14/2019 08/10/2024 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)*11/06/2021 08/10/2024 Hypothyroidism [E03.9] 11/06/2021 PVD (peripheral vascular disease) (HCC) [I73.9] 01/10/2020 Moderate protein-calorie malnutrition (HCC) [E4*11/01/2021 11/12/2022 Non-healing wound of amputation stump (HCC) [T8*09/24/2022 01/23/2023 Skin ulcers (HCC) [L98.499] 09/24/2022 01/23/2023 Neurodermatitis [L28.0] 01/23/2023 Coronary artery calcification seen on CAT scan *09/03/2024 Encounter Status:Closed by EDGAR CASTILLO on 12/01/24[facility] 09-21-2024 Telephone encounter Note* Telephone Encounter - Enid Priest - 09/21/2024 11:36 AM EST Left patient phone number [phone] to call me to schedule his colonoscopy [facility]03-05-2025 Miscellaneous Notes* Telephone Encounter - nEid Priest - 09/21/2024 11:36 AM EST Left patient phone number [phone] to call me to schedule his colonoscopy * Telephone Encounter - Yoly Berumen PA-C - 09/15/2024 12:14 PM EST Order placed. * Telephone Encounter - Anni Azevedo RN - 09/14/2024 1:52 PM EST Patient needs colonoscopy order. * Telephone Encounter - DukeBonnie - 09/14/2024 1:40 PM EST Patient calling to report that he is able to find transportation to [facility] for colonoscopy consult. Please submit orders then notify patient so he may follow up with schedulers. documented in this encounterMartin [facility]02-[facility]25 Telephone encounter Note * Telephone Encounter - Yoly Berumen PA-C - 09/15/2024 12:14 PM EST Order placed. [facility]02-27-2025 Instructions* Patient Instructions* Yoly Berumen PA-C - 09/15/2024 12:14 PM EST COLONOSCOPY BOWEL PREPARATION INSTRUCTIONS GOLYTELY/NULYTELY/TRILYTE/COLYTE Your doctor has scheduled you for a colonoscopy. To have a successful colonoscopy, you must have a clean colon, that is empty. A clean colon allows your doctor to see the entire colon & diagnose issues like polyps or cancer. For doctors, a clean colon is like driving on a edmund day; a dirty colon like driving in a storm. It is very important that you follow these instructions exactly, or your colonoscopy might not be as effective, could be canceled, and you may need to do the bowel prep and the colonoscopy again. TRANSPORTATION REQUIREMENTS You are receiving IV sedation. For your safety, a responsible adult escort must accompany you to and from your procedure: Your adult escort MUST be present with you at check-in for your colonoscopy. Your adult escort MUST remain in the endoscopy area until you are discharged. Your adult escort MUST transport you home once you are discharged. You are NOT allowed to operate any form of transportation (i.e. drive a car, bicycle, etc.) or leave the Endoscopy Center ALONE. It is not safe to do so. If you cannot meet these requirements, your procedure will be canceled. MEDICATION REQUIREMENTS For your safety, certain medications will need to be stopped or adjusted before you can have your procedure: BLOOD THINNERS: If you take blood thinners, such as Coumadin (warfarin), Plavix (clopidogrel), Ticlid (ticlopidine hydrochloride), Agrylin (anagrelide), Xarelto (Rivaroxaban), Pradaxa (Dabigatran), Eliquis (Apixaban), or Effient (Prasugrel), contact the physician who is prescribing these medications at least 2 weeks prior to your procedure to discuss any necessary adjustments. DIABETES: If you take medications for diabetes, your dosage may need to be adjusted. If you are being treated for diabetes with insulin, diabetic pills, or other injectable medicationsdo not take your REGULAR dose after midnight on the day of your procedure. If you are taking any other types of insulin such as Lantus, Humalog, NPH (long- acting insulin), or70/30 insulin, take half your normal dose the day before your procedure. DIABETES/WEIGHT MANAGEMENT: If you take medications for weight-loss, your dosage may need to be adjusted Contact the doctor who prescribes this medication for further instructions. If you take medications for weight-loss like semaglutide (Ozempic, Wegovy, Rybelsus), dulaglutide (Trulicity), liraglutide (Victoza, Saxenda), exenatide (Byetta, Bydureon), or lixisenatide (Adylyxin), stop your medication 1 week prior to your procedure. If you take medications like canagliflozin (Invokana), dapagliflozin (Farxiga, Forxiga), empagliflozin (Jardiance), stop your medication 3 days prior to your procedure. If you take ertugliflozin (Steglatro) stop your medication 4 days prior to your procedure. IRON: If you take iron pills, STOP them 1 week BEFORE your procedure, may resume after. OTHER MEDS: May take all other medications (including aspirin, antibiotics, water pills / diureticslike Lasix or Metolozone, blood pressure meds, etc.) at their usual scheduled time with a sip of water. DIET REQUIREMENTS The day before your colonoscopy, you may have a clear liquid diet (see below). The day of your colonoscopy, you may continue a clear liquid diet until 3 hours before your colonoscopy. Within 3 hours of your colonoscopy, take only any medications (as above) with a sip of water. Clear Liquid Diet Broth (chicken, beef or vegetable broth or bullion. Just the broth, no solids). Water Coffee or Tea (NO milk or creamer), but sugar and sugar substitutes are allowed. Clear liquids including clear, yellow, green, blue (NO red, NO orange, NO purple) Sodas / soft drinks Gatorade or other sports drinks Fritz-Aid or flavored drinks Plain Jell-O or other gelatins Fruit juice (strained; no-pulp) Popsicles or hard candy BOWEL PREPARATION (GOLYTELY/NULYTELY/TRILYTE/COLYTE) Split Dosing Bowel Prep: This means drinking your bowel prep in two doses. Split dosing helps cleanyour colon better and makes it less likely that your procedure will be canceled. Fill your prescription for Golytely/Nulytely/Trilyte/Colyte: The afternoon before your colonoscopy, mix the solution and refrigerate. You may add the flavor pack (if present) that came with the bowel preparation. Do not add ice, sugar, or other flavorings to the solution. You will drink your prep in two doses, by several hours. On the evening before your colonoscopy: 1. 6 PM drink the first half of the bowel preparation solution. Drink one 8-ounce glass every 15 minutes. 2. Six hours before your colonoscopy, drink the second half of the solution. Drink one 8-ounce glass every 15 minutes. 3. You may continue a clear liquid diet until 3 hours before your colonoscopy. Bowel prep can work differently from person to person. Some people's bowels move slowly and they may need different instructions. Please see your doctor in office or virtually for personalized bowel prep instructions if you have: Medical condition that needs special accommodations Had a poor bowel prep results or failed bowel prep attempts in the past. Had difficulty with anesthesia during the procedure. FREQUENTLY ASKED QUESTIONS Q: What if I suffer from constipation? A: Recommend taking extra laxatives to resolve your constipation days prior to entering the bowel prep day. Q: What if have had prior poor preps results in past? A: Contact your physician as you will likely need additional bowel prep instructions. Q: What if I have motility issues like Parkinson's, MS (multiple sclerosis), wheelchair dependent, etc.? or on medications that slow bowel emptying (narcotics, gabapentin, anticholinergic medicationsetc.) A: Contact your physician as you will likely need extra time and additional laxatives to complete your bowel prep. Q: What if I cannot drink large volume of liquid? A: Start your prep 2-3 hours earlier to allow yourself more time to complete the entire prep. Q: What if I can't finish my bowel prep? A: If you cannot finish your entire bowel prep, it is likely that your colonoscopy will need to be rescheduled due to poor prep quality. Q: What if I had bariatric surgery? Do I still have to complete the entire prep? A: Yes, gastric bypass surgery involves the stomach & small bowel. You may need to drink smaller amounts, slower (may need more time to complete your bowel prep). Gastric bypass does not alter the length of your colon so you will need to complete the entire bowel prep, it may just take longer time to complete it. Q: What if I am on dialysis? A: Please consult your concrete pile driver operator prior to scheduling to get instructions pertinent to you. In general, dialysis patients take the [employer] bowel prep and have the procedure same day of their dialysis (colonoscopy in AM, dialysis in PM). Q: How do I know if something is considered as clear liquid diet? A: If you can pour it in a glass and you can see through it, it is considered clear liquid Q: Can I eat nuts, seeds, beans, popcorn, dried fruits, vegetables & fruits that have skin peel? A: No, you will need to not eat these items starting 3 days prior to procedure. Q: Can I take Uber/Lyft/taxi/bus home? A: An adult MUST be present with you at check-in for your colonoscopy and remain in the endoscopy area until you are discharged. You can take Uber home only if this adult escort is with you at check in, remain in the endoscopy area until you are discharged, and takes the Uber with you to home. Q: Can I sleep it off here and drive myself home? A: No, you must have an adult with you at time of procedure check in, remain in the endoscopy center during your procedure, and drive you home. You cannot drive a vehicle after your procedure the rest of the day. documented in this encounterMartin [facility]02-[facility]25 Telephone encounter Note * Telephone Encounter - Anni Azevedo RN - 09/14/2024 1:52 PM EST Patient needs colonoscopy order. [facility]02-[facility] Telephone encounter Note* Telephone Encounter - Bonnie Duke - 09/14/2024 1:40 PM EST Patient calling to report that he is able to find transportation to [facility] for colonoscopy consult. Please submit orders then notify patient so he may follow up with schedulers. [facility]02-[facility] Telephone encounter Note* Telephone Encounter - Denys Oerllana LPN - 09/02/2024 2:30 PM EST Patient called, verified name and date of , regarding MRI results below. Patient verbalized understanding. Patient will wait to see spinal specialist at this time. Denys Orellana LPN September 02, 2024 2:30 PM [facility]02-[facility] Miscellaneous Notes* Telephone Encounter - Denys Orellana LPN - 09/02/2024 2:30 PM EST Patient called, verified name and date of , regarding MRI results below. Patient verbalized understanding. Patient will wait to see spinal specialist at this time. Denys Orellana LPN September 02, 2024 2:30 PM * Telephone Encounter - Denys Orellana LPN - 09/02/2024 2:29 PM EST ----- Message from Marie Edwards PA-C sent at 09/02/2024 12:47 PM EST ----- ----- Message from Julianna Mcgill LPN sent at 08/30/2024 1:17 PM EST ----- A1c not well controlled, continue following with PCP. Marie Edwards PA-C * Telephone Encounter - Marie Edwards PA-C - 09/02/2024 12:46 PM EST MRI brain is normal. MRI of the cervical spine shows diffuse degeneration throughout both where thenerves exit the spine and centrally where the spinal cord is. However, the spinal cord is normal. Would recommend seeing a spinal specialist at this time. * Telephone Encounter - Julianna Mcgill LPN - 08/30/2024 1:17 PM EST Images from the original note were not included. Marie Edwards PA-C [facility] A1c not well controlled, continue following with PCP. Marie Edwards PA-C [facility] Telephone encounter Note * Telephone Encounter - Denys Orellana LPN - 09/02/2024 2:29 PM EST ----- Message from Marie Edwards PA-C sent at 09/02/2024 12:47 PM EST ----- ----- Message from Julianna Mcgill LPN sent at 08/30/2024 1:17 PM EST ----- A1c not well controlled, continue following with PCP. Marie Edwards PA-C [facility]02-14[facility] Telephone encounter Note* Telephone Encounter - Marie Edwards PA-C - 09/02/2024 12:46 PM EST MRI brain is normal. MRI of the cervical spine shows diffuse degeneration throughout both where thenerves exit the spine and centrally where the spinal cord is. However, the spinal cord is normal. Would recommend seeing a spinal specialist at this time. [facility]02-13[facility] History of Present illness Narrative* Lianet Silvestre APRN.RETAINING ROOM CUTTER - 09/01/2024 3:00 PM EST HISTORY AND PHYSICAL Tori Cantor : 1975 REFERRING PHYSICIAN: Margarita Licona [address] [facility] [address] CHIEF COMPLAINT: Patient presents with: Consult: Colonoscopy HPI: Tori is a 49 year old male referred for endoscopy. Tori notes due for screening colonoscopy. Pt also recommended to have repeat EGD in 1 year (2022) d/t long segment macdonald's. Tori notes he is a patient of Dr. Terrazas's but he is scheduling endoscopy out 1 year. He has a c/o sulfur burps. Tori has T1DM which is uncontrolled. Last A1C was 10.9. Pt has a left BKA- spends most of the time in wheelchair Follows with pulmonology d/t lung cancer risk from smoking. Admits to dyspnea with dressing. MMRC score of 4. Daily marijuana use. Troi has undergone prior endoscopy. Last EGD & Colonoscopy was 06/[address] Terrazas at [facility]. Sedation: MAC EGD Impressions : - Esophageal mucosal changes secondary to established long-segment Macdonald's disease. Biopsied. - Small hiatal hernia. - Enlarged gastric folds. - No gross lesions in the first portion of the duodenum. COLONOSCOPY Impressions : - Preparation of the colon was inadequate. - Diverticulosis in the recto-sigmoid colon, in the sigmoid colon and in the descending colon. - The entire examined colon is normal. - Stool in the entire examined colon. - The examination was otherwise normal. - No specimens collected. Distal esophagus, biopsy: Fragments of gastroesophageal mucosa with extensive intestinal metaplasia (goblet cell metaplasia) consistent with Macdonald s esophagus. Moderate chronic inflammation. Negative for dysplasia. Current Outpatient Medications Medication Sig amitriptyline (ELAVIL) 25 mg tablet Take 1 tablet by mouth daily at bedtime. amLODIPine (NORVASC) 5 mg tablet Take 1 tablet by mouth once daily. atorvastatin (LIPITOR) 40 mg tablet Take 1 tablet by mouth daily at bedtime. For cholesterol. pantoprazole DR (PROTONIX) 40 mg tablet Take 1 tablet by mouth two times a day. sertraline (ZOLOFT) 50 mg tablet Take 1 tablet by mouth once daily. gabapentin (NEURONTIN) 300 mg capsule Take 1 cap three times a day during the day and 2 caps at bedtime lisinopril (ZESTRIL) 40 mg tablet Take 1 tablet by mouth once daily. levothyroxine (SYNTHROID) 25 mcg tablet Take 1 tablet by mouth every morning. insulin lispro (HUMALOG KWIKPEN) 100 unit/mL Inject 6 Units subcutaneously three times a day with meals. Plus sliding scale. Per [facility]. albuterol HFA (PROVENTIL HFA, VENTOLIN HFA) 90 mcg/actuation inhaler Inhale 2 Puffs as instructed every 4 hours as needed for wheezing/shortness of breath. Insulin Dudley, Disposable, (BD ULTRAFINE III MINI PEN) 31 gauge x 3/16 USE WITH INSULIN PENS 4TIMES DAILY flash glucose sensor (FREESTYLE MAIKEL 2 SENSOR) kit Check 8 times per day LANTUS SOLOSTAR U-100 INSULIN 100 unit/mL (3 mL) Inject 18 Units subcutaneously daily at bedtime. Per [facility]. (Patient not taking: Reported on 09/01/2024) No current facility-administered medications for this visit. ALLERGIES: Patient has no known allergies. PAST MEDICAL HISTORY Diagnosis Date Cellulitis of left lower extremity 07/20/2019 Charcot's joint of right foot 11/11/2016 Chronic bilateral low back pain without sciatica Closed trimalleolar fracture of left ankle 05/23/2019 Depression with anxiety 01/25/2016 Diabetic polyneuropathy associated with type 1 diabetes mellitus ([facility]) 01/25/2016 Cris on disability. Dx 10 y.o. DKA (diabetic ketoacidosis) ([facility]) 08/2014, 10/2017 GERD (gastroesophageal reflux disease) 01/25/2016 Hep C w/o coma, chronic ([facility]) 09/29/2018 Epclusa x 12 weeks to 2021 History of drug abuse in remission ([facility]) 09/29/2018 History of ischemic colitis 03/14/2016 History of left below knee amputation ([facility]) 07/14/2019 Hyperlipidemia 02/14/2017 Hypertension Hypothyroidism 11/06/2021 IVDU (intravenous drug user) 05/27/2019 Lactose intolerance 07/30/2016 Marijuana abuse Moderate protein-calorie malnutrition ([facility]) 11/01/2021 Neurodermatitis 01/23/2023 Non-healing wound of amputation stump ([facility]) 09/24/2022 Osteomyelitis of left tibia/BKA with MRSA ([facility]) 11/06/2021 Pancreatitis 08/2014 Perianal abscess 08/03/2018 Primary hypertension PVD (peripheral vascular disease) ([facility]) 01/10/2020 Tobacco abuse 05/27/2019 PAST SURGICAL HISTORY Procedure Laterality Date AMPUTATION LOW LEG THRU TIB/FIB Left 06/24/2019 Left BKA COLONOSCOPY 03/17/2016 resolved colitis, presumed ischemic COLONOSCOPY SCREENING 06/19/2022 poor prep. Repeat in 11/2022 recommended. EGD 11/02/2017 2014 IR VASCULAR ACCESS TEAM PICC INSERTION RADIO 06/17/2019 REMV CATARACT EXTRACAP,INSERT LENS Bilateral 2021 REVISION OF LOWER LEG Left 07/06/2020 I&D, revision of BKA stump REVISION OF LOWER LEG Left 09/19/2021 I&D stump REVISION OF LOWER LEG Left 01/27/2020 I&D stump FAMILY HISTORY Problem Relation Age of Onset Hypertension Mother Diabetes Mother Stroke Mother Heart Mother CHF Cataract Mother Hypertension Father COPD Father Emphysema Father Colon Cancer Father other (Liver failure) Father No Known Problems Brother No Known Problems Maternal Grandmother No Known Problems Maternal Grandfather No Known Problems Paternal Grandmother Colon Cancer Paternal Grandfather Colon Cancer Paternal Uncle Lung Cancer No Family History Social History Tobacco Use Smoking status: Every Day Current packs/day: 1.00 Average packs/day: 1 pack/day for 35.0 years (35.0 ttl pk-yrs) Types: Cigarettes Smokeless tobacco: Never Vaping Use Vaping status: Never Used Substance Use Topics Alcohol use: Not Currently Drug use: Yes Frequency: 14.0 times per week Types: Marijuana Comment: currently smokes marijuana 2 times a day. 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 REVIEW OF SYMPTOMS: The review of systems data was entered by the nurse and reviewed by me SEE NURSING NOTE PHYSICAL EXAMINATION: General: The patient is 49 year old, male well nourished, well hydrated in no acute distress. The patient is oriented to time, place, and person. VITALS: Blood pressure 170/108, pulse 102, temperature 36.7 C (98 F), temperature source Temporal, resp. rate 14, height 180.3 cm (5' 11), weight 74 kg (163 lb 2.3 oz), SpO2 99%. Body mass index is 22.75 kg/m . HEENT: Normal cephalic, ataumatic, pupils are equally round, sclera are anicteric, mucous membranesare moist, oropharynx is clear. Neck has no masses, asymmetry or lymphadenopathy. Respiratory: Clear to auscultation and percussion. Normal respiratory excursion and pattern. Cardiac: Examination is regular rate and rhythm. Normal S1/S2 Abdominal exam: Soft, nontender, with no palpable masses. No hepatosplenomegaly. No palpable hernias. Extremities: no clubbing, cyanosis or edema. No adenopathy. LABORATORY VALUES: As Noted RADIOLOGIC STUDIES: As Noted Assessment IMPRESSION: screen for colon cancer PLAN: Based on Tori's current uncontrolled diabetes (HgA1C of 10.9), dyspnea with exertion and daily marijuana use he would need to have PACC and endoscopy completed at [place]. He notes he doesn't have any family he can rely on to get him to [place] & typically uses insurance for his transportation. He notes that doesn't want to be stuck hours away from home [facility]. At this time he is going to try to get in with Dr. Terrazas since he is an established patient with him already. Diagnoses: (Z12.11) Screen for colon cancer Consultation requested by Peri Licona CNP for an opinion regarding colon cancer screening. My final recommendations will be communicated back to the requesting physician by way of shared Medical record or letter to requesting physician via US mail. Portions of this documentation were copied and pasted from previous office visit notes in order to provide a cohesive continuity of the history. The note has been reviewed and edited and updated as necessary. Lianet Silvestre APRN.CNP * Anita Todd SHIRT OPERATOR - 09/01/2024 2:46 PM EST REVIEW OF SYSTEMS: General: The patient denies fatigue, denies weight loss, denies weight gain, denies feeling hot, and denies feelings of cold. Eyes: The patient denies glaucoma, notes eye injury/surgery, does not wear glasses or contacts. Ear/Nose/Throat: The patient denies allergies, denies hayfever, denies ear infections, and denies bloody noses. Cardiovascular: The patient denies chest pain, denies heart disease, notes high blood pressure,denies cardiac stent, denies prior heart attack, denies irregular heart beat, denies high cholesterol, notes poor circulation, denies heart failure, other cardiac issues, denies claudication, denies cold feet, denies peripheral arterial stent. Respiratory: The patient denies tuberculosis, denies pneumonia, denies frequent cough, denies pulmonary embolism, denies shortness of breath, and denies coughing up blood. Gastrointestinal: The patient denies difficulty swallowing, denies acid reflux, denies ulcers, denies vomiting, denies jaundice/hepatitis, denies gallbladder problems, denies black or tarry stools, denies hemorrhoids, denies bleeding from rectum, denies diverticulitis, denies constipation, denies diarrhea, denies loss of stool control, and denies hernias. Kidney/Bladder: The patient denies kidney stones, denies urine infections, and denies bloody urine. Skin: The patient denies a history of skin cancer, denies bleeding/changing moles, and denies a history of skin rash. Neurologic: The patient notes a history of epilepsy/convulsions, notes headaches, denies head/spinal injuries, and denies stroke/TIA. Psychiatric: The patient denies psychiatric medications, notes depression, and denies voices, denies substance abuse. Endocrine: The patient denies thyroid disorders, notes diabetes, and denies hormonal problems. Hematologic: The patient denies a history of bruising, denies bleeding, and denies anemia, denies blood clots. Infections: The patient denies a history of measles and mumps, denies rheumatic fever, and denies sexually transmitted diseases. Musculoskeletal: The patient notes back pain/injury, denies back problems, denies sciatica, denies knee/foot trouble, denies arthritis, or denies gout. When was patient's last Mammogram screening? N/A Last Colonoscopy: Per patient in 2021 at [facility] but ate prior to and was not cleaned out. Anita Todd LPN documented in this encounter[facility]02-[facility]25 NoteHNO ID: [id number] Author: LIANET SILVESTRE APRN.RETAINING ROOM CUTTER Service: ? Author Type: Nurse Practitioner Type: Progress Notes Filed: 09/01/2024 15:35 Note Text: HISTORY AND PHYSICAL Tori Cantor : 1975 REFERRING PHYSICIAN: Margarita Licona [address] [facility] [address] CHIEF COMPLAINT: Patient presents with: Consult: Colonoscopy HPI: Tori is a 49 year old male referred for endoscopy. Tori notes due for screening colonoscopy. Pt also recommended to have repeat EGD in 1 year (2022) d/t long segment macdonald's. Tori notes he is a patient of Dr. Bui but he is scheduling endoscopy out 1 year. He has a c/o sulfur burps. Tori has T1DM which is uncontrolled. Last A1C was 10.9. Pt has a left BKA- spends most of the time in wheelchair Follows with pulmonology d/t lung cancer risk from smoking. Admits to dyspnea with dressing. MMRC score of 4. Daily marijuana use. Tori has undergone prior endoscopy. Last EGD AND Colonoscopy was 06/[address] Terrazas at [facility]. Sedation: MAC EGD Impressions : - Esophageal mucosal changes secondary to established long-segment Macdonald's disease. Biopsied. - Small hiatal hernia. - Enlarged gastric folds. - No gross lesions in the first portion of the duodenum. COLONOSCOPY Impressions : - Preparation of the colon was inadequate. - Diverticulosis in the recto-sigmoid colon, in the sigmoid colon and in the descending colon. - The entire examined colon is normal. - Stool in the entire examined colon. - The examination was otherwise normal. - No specimens collected. Distal esophagus, biopsy: Fragments of gastroesophageal mucosa with extensive intestinal metaplasia (goblet cell metaplasia) consistent with Macdonald?s esophagus. Moderate chronic inflammation. Negative for dysplasia. Current Outpatient Medications Medication Sig amitriptyline (ELAVIL) 25 mg tablet Take 1 tablet by mouth daily at bedtime. amLODIPine (NORVASC) 5 mg tablet Take 1 tablet by mouth once daily. atorvastatin (LIPITOR) 40 mg tablet Take 1 tablet by mouth daily at bedtime. For cholesterol. pantoprazole DR (PROTONIX) 40 mg tablet Take 1 tablet by mouth two times a day. sertraline (ZOLOFT) 50 mg tablet Take 1 tablet by mouth once daily. gabapentin (NEURONTIN) 300 mg capsule Take 1 cap three times a day during the day and 2 caps at bedtime lisinopril (ZESTRIL) 40 mg tablet Take 1 tablet by mouth once daily. levothyroxine (SYNTHROID) 25 mcg tablet Take 1 tablet by mouth every morning. insulin lispro (HUMALOG KWIKPEN) 100 unit/mL Inject 6 Units subcutaneously three times a day with meals. Plus sliding scale. Per [facility]. albuterol HFA (PROVENTIL HFA, VENTOLIN HFA) 90 mcg/actuation inhaler Inhale 2 Puffs as instructed every 4 hours as needed for wheezing/shortness of breath. Insulin Dudley, Disposable, (BD ULTRAFINE III MINI PEN) 31 gauge x 3/16 USE WITH INSULIN PENS 4TIMES DAILY flash glucose sensor (FREESTYLE MAIKEL 2 SENSOR) kit Check 8 times per day LANTUS SOLOSTAR U-100 INSULIN 100 unit/mL (3 mL) Inject 18 Units subcutaneously daily at bedtime. Per [facility]. (Patient not taking: Reported on 09/01/2024) No current facility-administered medications for this visit. ALLERGIES: Patient has no known allergies. PAST MEDICAL HISTORY Diagnosis Date Cellulitis of left lower extremity 07/20/2019 Charcot's joint of right foot 11/11/2016 Chronic bilateral low back pain without sciatica Closed trimalleolar fracture of left ankle 05/23/2019 Depression with anxiety 01/25/2016 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) 01/25/2016 Cris, on disability. Dx 10 y.o. DKA (diabetic ketoacidosis) ([facility]) 08/2014, 10/2017 GERD (gastroesophageal reflux disease) 01/25/2016 Hep C w/o coma, chronic ([facility]) 09/29/2018 Epclusa x 12 weeks to 2021 History of drug abuse in remission ([facility]) 09/29/2018 History of ischemic colitis 03/14/2016 History of left below knee amputation ([facility]) 07/14/2019 Hyperlipidemia 02/14/2017 Hypertension Hypothyroidism 11/06/2021 IVDU (intravenous drug user) 05/27/2019 Lactose intolerance 07/30/2016 Marijuana abuse Moderate protein-calorie malnutrition ([facility]) 11/01/2021 Neurodermatitis 01/23/2023 Non-healing wound of amputation stump ([facility]) 09/24/2022 Osteomyelitis of left tibia/BKA with MRSA ([facility]) 11/06/2021 Pancreatitis 08/2014 Perianal abscess 08/03/2018 Primary hypertension PVD (peripheral vascular disease) ([facility]) 01/10/2020 Tobacco abuse 05/27/2019 PAST SURGICAL HISTORY Procedure Laterality Date AMPUTATION LOW LEG THRU TIB/FIB Left 06/24/2019 Left BKA COLONOSCOPY 03/17/2016 resolved colitis, presumed ischemic COLONOSCOPY SCREENING 06/19/2022 poor prep. Repeat in 11/2022 recommended. EGD 11/02/2017 2014 IR VASCULAR ACCESS TEAM PICC INSERTION RADIO 06/17/2019 REMV CATARACT EXTRACAP,INSERT L (more content not included)...[facility]02-13-2025 NoteHNO ID: [id number] Author: ANITA TODD LPN Service: ? Author Type: LICENSED NURSE Type: Progress Notes Filed: 09/01/2024 15:35 Note Text: REVIEW OF SYSTEMS: General: The patient denies fatigue, denies weight loss, denies weight gain, denies feeling hot, and denies feelings of cold. Eyes: The patient denies glaucoma, notes eye injury/surgery, does not wear glasses or contacts. Ear/Nose/Throat: The patient denies allergies, denies hayfever, denies ear infections, and denies bloody noses. Cardiovascular: The patient denies chest pain, denies heart disease, notes high blood pressure,denies cardiac stent, denies prior heart attack, denies irregular heart beat, denies high cholesterol, notes poor circulation, denies heart failure, other cardiac issues, denies claudication, denies cold feet, denies peripheral arterial stent. Respiratory: The patient denies tuberculosis, denies pneumonia, denies frequent cough, denies pulmonary embolism, denies shortness of breath, and denies coughing up blood. Gastrointestinal: The patient denies difficulty swallowing, denies acid reflux, denies ulcers, denies vomiting, denies jaundice/hepatitis, denies gallbladder problems, denies black or tarry stools, denies hemorrhoids, denies bleeding from rectum, denies diverticulitis, denies constipation, denies diarrhea, denies loss of stool control, and denies hernias. Kidney/Bladder: The patient denies kidney stones, denies urine infections, and denies bloody urine. Skin: The patient denies a history of skin cancer, denies bleeding/changing moles, and denies a history of skin rash. Neurologic: The patient notes a history of epilepsy/convulsions, notes headaches, denies head/spinal injuries, and denies stroke/TIA. Psychiatric: The patient denies psychiatric medications, notes depression, and denies voices, denies substance abuse. Endocrine: The patient denies thyroid disorders, notes diabetes, and denies hormonal problems. Hematologic: The patient denies a history of bruising, denies bleeding, and denies anemia, denies blood clots. Infections: The patient denies a history of measles and mumps, denies rheumatic fever, and denies sexually transmitted diseases. Musculoskeletal: The patient notes back pain/injury, denies back problems, denies sciatica, denies knee/foot trouble, denies arthritis, or denies gout. When was patient's last Mammogram screening? N/A Last Colonoscopy: Per patient in 2021 at [facility] but ate prior to and was not cleaned out. Anita Todd [facility]02-13-2025 History of Present illness Narrative* Anita Garcia, RT(R) - 09/01/2024 2:00 PM EST Radiology Service Progress Note PATIENT NAME: Tori Cantor DATE OF SERVICE: September 01, 2024 TIME: 3:57 PM PATIENT IDENTITY VERIFICATION COMPLETED USING TWO (2) IDENTIFIERS: Name and Date of confirmedby patient verbally. FALL SCREENING: Has the patient had 2 falls in the last year or 1 fall with injury or currently using an Ambulatory Assistive Device (Walker, Cane, Wheelchair, Crutches, etc.)? No PATIENT GENDER DATA: Assigned male at PATIENT RELEVANT IMPLANT DATA REVIEWED: Yes PATIENT PRESENTS WITH AN IMPLANTABLE OR ATTACHED TUNNELING MACHINE OPERATOR: No RADIOLOGY DEPARTMENT: CT; Exam(s) Completed: Lung Screening PERIPHERAL IV DATA: Not applicable SIGNED BY: RT Zoë(R) September 01, 2024 3:57 PM documented in this encounterMartin [facility]02-13-2025 NoteHNO ID: [id number] Author: ANITA GARCIA RT(R) Service: ? Author Type: Shot Polisher And Inspector Type: Progress Notes Filed: 09/01/2024 15:57 Note Text: Radiology Service Progress Note PATIENT NAME: Tori Cantor DATE OF SERVICE: September 01, 2024 TIME: 3:57 PM PATIENT IDENTITY VERIFICATION COMPLETED USING TWO (2) IDENTIFIERS: Name and Date of confirmed by patient verbally. FALL SCREENING: Has the patient had 2 falls in the last year or 1 fall with injury or currently using an Ambulatory Assistive Device (Walker, Cane, Wheelchair, Crutches, etc.)? No PATIENT GENDER DATA: Assigned male at PATIENT RELEVANT IMPLANT DATA REVIEWED: Yes PATIENT PRESENTS WITH AN IMPLANTABLE OR ATTACHED TUNNELING MACHINE OPERATOR: No RADIOLOGY DEPARTMENT: CT; Exam(s) Completed: Lung Screening PERIPHERAL IV DATA: Not applicable SIGNED BY: RT Zoë(Sukumar) September 01, 2024 3:57 [facility]02-13-2025 History of Present illness Narrative* Maryana Rodriguez, (R) - 09/01/2024 1:30 PM EST Radiology Service Progress Note PATIENT NAME: Tori Cantor DATE OF SERVICE: September 01, 2024 TIME: 1:41 PM PATIENT IDENTITY VERIFICATION COMPLETED USING TWO (2) IDENTIFIERS: Name and Date of confirmedby patient verbally. FALL SCREENING: Has the patient had 2 falls in the last year or 1 fall with injury or currently using an Ambulatory Assistive Device (Walker, Cane, Wheelchair, Crutches, etc.)? Yes, Patient High Riskfor Falls What interventions were put in place to prevent falls during this visit? Instructed Patient to Callfor Help if Needed, Offered Assistance with Transfers/Clothing, Instructed Patient to Remain Seated(Not on Exam Table) Until Exam, and Increased Observations by Caregivers PATIENT GENDER DATA: Assigned male at PATIENT RELEVANT IMPLANT DATA REVIEWED: Yes PATIENT PRESENTS WITH AN IMPLANTABLE OR ATTACHED TUNNELING MACHINE OPERATOR: Yes Other Dexcom 6 and Freestyle Maikel 2 RADIOLOGY DEPARTMENT: MR; Exam(s) Completed: Head: Routine Brain Spine: Cervical spine PERIPHERAL IV DATA: Not applicable SIGNED BY: RT Varun(Sukumar) September 01, 2024 1:41 PM documented in this encounterMartin [facility] Hospital02-13-2025 NoteHNO ID: [id number] Author: MARYANA RODRIGUEZ RT(R) Service: ? Author Type: Technologist Type: Progress Notes Filed: 09/01/2024 13:42 Note Text: Radiology Service Progress Note PATIENT NAME: Tori Cantor DATE OF SERVICE: September 01, 2024 TIME: 1:41 PM PATIENT IDENTITY VERIFICATION COMPLETED USING TWO (2) IDENTIFIERS: Name and Date of confirmed by patient verbally. FALL SCREENING: Has the patient had 2 falls in the last year or 1 fall with injury or currently using an Ambulatory Assistive Device (Walker, Cane, Wheelchair, Crutches, etc.)? Yes, Patient High Risk for Falls What interventions were put in place to prevent falls during this visit? Instructed Patient to Call for Help if Needed, Offered Assistance with Transfers/Clothing, Instructed Patient to Remain Seated (Not on Exam Table) Until Exam, and Increased Observations by Caregivers PATIENT GENDER DATA: Assigned male at PATIENT RELEVANT IMPLANT DATA REVIEWED: Yes PATIENT PRESENTS WITH AN IMPLANTABLE OR ATTACHED TUNNELING MACHINE OPERATOR: Yes Other Dexcom 6 and Freestyle Maikel 2 RADIOLOGY DEPARTMENT: MR; Exam(s) Completed: Head: Routine Brain Spine: Cervical spine PERIPHERAL IV DATA: Not applicable SIGNED BY: RT Varun(R) September 01, 2024 1:41 [facility]02-11-2025 Telephone encounter Note* Telephone Encounter - Denys Orellana LPN - 08/30/2024 1:24 PM EST Called, someone answered and stated Tori isn't there and hung up. Will try later. Denys Orellana LPN August 30, 2024 1:25 PM [facility]02-11-2025 Miscellaneous Notes* Telephone Encounter - Denys Orellana LPN - 08/30/2024 1:24 PM EST Called, someone answered and stated Tori isn't there and hung up. Will try later. Denys Orellana LPN August 30, 2024 1:25 PM * Telephone Encounter - Julianna Mcigll LPN - 08/30/2024 1:18 PM EST Images from the original note were not included. Marie Edwards PA-C P Neuro Queener A1c not well controlled, continue following with PCP. Marie Edwards PA-C documented in this encounter[facility] Telephone encounter Note * Telephone Encounter - Julianna Mcgill LPN - 08/30/2024 1:18 PM EST Images from the original note were not included. Marie Edwards PA-C P Neuro Queener A1c not well controlled, continue following with PCP. Marie Edwards PA-C [facility]02-11-2025 Telephone encounter Note* Telephone Encounter - Julianna Mcgill LPN - 08/30/2024 1:17 PM EST Images from the original note were not included. Marie Edwards PA-C P Neuro Queener A1c not well controlled, continue following with PCP. Marie Edwards PA-C [facility]02-05-2025 Instructions* Patient Instructions* Marie Edwards PA-C - 08/24/2024 9:44 AM EST MRI of the brain and cervical spine Laboratory studies Follow up after work up documented in this encounterMartin [facility]02-[facility]25 NoteHNO ID: [id number] Author: DENYS ORELLANA LPN Service: ? Author Type: LICENSED NURSE Type: Progress Notes Filed: 08/24/2024 10:28 Note Text:[facility]02-05-2025 NoteHNO ID: [id number] Author: MARIE EDWARDS PA-C Service: ? Author Type: Physician Innovation Manager Type: Progress Notes Filed: 08/24/2024 10:28 Note Text: [facility] Name: Tori Cantor Age: [age] year old Gender: male Primary Care Provider: Jah Mas MD Consult requested for paresthesias by Margarita Licona. Recommendations will be communicated via shared medical record or US mail. Chief Complaint:New Patient (Numbness, tingling, frequent falls- c/o feeling like he has blinders on, head feels numb, pt has hx of neuropathy) 08/24/2024 - General Neurology, Marie Edwards PA-C ASSESSMENT ASSESSMENT/PLAN: 1. Numbness and tingling - ICD9: 782.0, ICD10: R20.0, R20.2 (primary diagnosis) 2. Memory deficit - ICD9: 780.93, ICD10: R41.3 3. Frequent falls - ICD9: V15.88, ICD10: R29.6 4. Cerebral infarction, unspecified mechanism (HCC) - ICD9: 434.91, ICD10: I63.9 5. Spinal stenosis of cervical region - ICD9: 723.0, ICD10: M48.02 Patient with 3 to 4 months of constant numbness of the head, neck and upper arms which is new. Has longstanding history of neuropathy since he was in his 20s from type 1 diabetes mellitus, notes very poor glucose control ever since he was diagnosed at the age of 11. Notes constant neuropathy symptoms up to his hands, but a few months ago he woke up and the rest of his body was numb, this has been constant ever since. Notes some worsening dexterity in his hands as well but no significant weakness. Austin like his face was weak but was symmetric when he examined it. Did go to the emergency room and was told it was secondary to diabetic neuropathy and discharged. No etiology found so that he can think of, does not take any supplements, no heavy alcohol use, no chemotherapy or heavy metal exposure. Patient does have some decreased sensation to temperature to the posterior aspect of the head but his face is intact. Slight weakness of the left eyebrow but otherwise facial strength is intact. At this time, unclear etiology for symptoms, does have some weakness of his branch lead strength as well bilaterally, due to new onset symptoms will order MRI of the brain and cervical spine to look for any signs of stroke versus intracranial etiology, nerve compression or stenosis in his cervical spine. Discussed obtaining laboratory studies as well for further evaluation and patient is amenable. Patient agreeable to treatment plan of care at this time, questions were answered. Patient to follow-up after workup is completed. Marie Edwards PA-C Encounter Diagnosis ICD-10-CM 1. Numbness and tingling R20.0 SEDIMENTATION RATE, WESTERGREN R20.2 C-REACTIVE PROTEIN HEMOGLOBIN A1C VITAMIN B12 THYROID STIMULATING HORMONE PROT ELECT SERUM WITH ASHLEY AND INTERP METHYLMALONIC ACID MRI BRAIN WO IVCON 2. Memory deficit R41.3 3. Frequent falls R29.6 4. Cerebral infarction, unspecified mechanism (HCC) I63.9 MRI BRAIN WO IVCON 5. Spinal stenosis of cervical region M48.02 MRI CERVICAL SPINE WO IVCON Return in about 3 months (around 11/21/2024). Chart, labs,and relevant images reviewed. HPI: Saw PCP on 08/10/24 He reports worsening numbness/tingling RLE and bilateral arms, new onset facial numbness/tingling. He has been falling because of this. Also has concerns about memory loss. Diabetes is not well controlled. Seen by neuro for neuropathy in the past, last visist was 2016 outside [facility]. Poorly controlled DM. This is a 49 year old male presenting with paresthesias. Notes he has had a history of neuropathy since his 20s, has had type 1 diabetes and C was 11 with very poor glucose control. A few months ago he woke up 1 day and could not feel his head on the rest of his body. Notes that his baseline neuropathy was up to the mid forearms and down, has never experienced numbness and tingling in the head before. Went to the ER but was told it was likely secondary to diabetic neuropathy. Follow-up with his primary and there is concern for this being something neurologic and was referred. Does not feel he has any significant weakness but has difficulty moving the hands, worsening dexterity since this started. Has not had any labs or imaging since this began. Notes her symptoms have been constant ever since and have not been unchanged. Did have left leg amputation below the knee after he broke his ankle in 2019 and it was infected. States he is not diabetic related. However, glucose is still poorly controlled at this time. Takes gabapentin for his baseline neuropathy as well as amitriptyline with no significant benefit. Does note intermittent vision changes as well, this morning it feels like he has blind resolved with some blurry vision in both his peripherals. This is happened before, occasionally will get blobs in his peripheral vision, has not yet seen his eye doctor but has appointment scheduled. Currently gets around in a wheelchair (more content not included)...[facility]02-05-2025 History of Present illness Narrative* Denys Orellana LPN - 08/24/2024 9:11 AM EST * Marie Edwards PA-C - 08/24/2024 9:11 AM EST Images from the original note were not included. [facility] Name: Tori Cantor Age: [age] year old Gender: male Primary Care Provider: Jah Mas MD Consult requested for paresthesias by Margarita Licona. Recommendations will be communicated via shared medical record or US mail. Chief Complaint:New Patient (Numbness, tingling, frequent falls- c/o feeling like he has blinders on, head feels numb, pt has hx of neuropathy) 08/24/2024 - General Neurology, Marie Edwards PA-C ASSESSMENT ASSESSMENT/PLAN: 1. Numbness and tingling - ICD9: 782.0, ICD10: R20.0, R20.2 (primary diagnosis) 2. Memory deficit - ICD9: 780.93, ICD10: R41.3 3. Frequent falls - ICD9: V15.88, ICD10: R29.6 4. Cerebral infarction, unspecified mechanism (HCC) - ICD9: 434.91, ICD10: I63.9 5. Spinal stenosis of cervical region - ICD9: 723.0, ICD10: M48.02 Patient with 3 to 4 months of constant numbness of the head, neck and upper arms which is new. Has longstanding history of neuropathy since he was in his 20s from type 1 diabetes mellitus, notes verypoor glucose control ever since he was diagnosed at the age of 11. Notes constant neuropathy symptoms up to his hands, but a few months ago he woke up and the rest of his body was numb, this has been constant ever since. Notes some worsening dexterity in his hands as well but no significant weakness. Austin like his face was weak but was symmetric when he examined it. Did go to the emergency room and was told it was secondary to diabetic neuropathy and discharged. No etiology found so that he canthink of, does not take any supplements, no heavy alcohol use, no chemotherapy or heavy metal exposure. Patient does have some decreased sensation to temperature to the posterior aspect of the head but his face is intact. Slight weakness of the left eyebrow but otherwise facial strength is intact. At this time, unclear etiology for symptoms, does have some weakness of his branch lead strength as well gissell aterally, due to new onset symptoms will order MRI of the brain and cervical spine to look for any signs of stroke versus intracranial etiology, nerve compression or stenosis in his cervical spine. Discussed obtaining laboratory studies as well for further evaluation and patient is amenable. Patient agreeable to treatment plan of care at this time, questions were answered. Patient to follow-up after workup is completed. Marie Edwards PA-C Encounter Diagnosis ICD-10-CM 1. Numbness and tingling R20.0 SEDIMENTATION RATE, WESTERGREN R20.2 C-REACTIVE PROTEIN HEMOGLOBIN A1C VITAMIN B12 THYROID STIMULATING HORMONE PROT ELECT SERUM WITH ASHLEY AND INTERP METHYLMALONIC ACID MRI BRAIN WO IVCON 2. Memory deficit R41.3 3. Frequent falls R29.6 4. Cerebral infarction, unspecified mechanism (HCC) I63.9 MRI BRAIN WO IVCON 5. Spinal stenosis of cervical region M48.02 MRI CERVICAL SPINE WO IVCON Return in about 3 months (around 11/21/2024). Chart, labs,and relevant images reviewed. HPI: Saw PCP on 08/10/24 He reports worsening numbness/tingling RLE and bilateral arms, new onset facialnumbness/tingling. He has been falling because of this. Also has concerns about memory loss. Diabetes is not well controlled. Seen by neuro for neuropathy in the past, last visist was 2017 outside [facility]. Poorly controlled DM. This is a 49 year old male presenting with paresthesias. Notes he has had a history of neuropathy since his 20s, has had type 1 diabetes and C was 11 with very poor glucose control. A few months ago he woke up 1 day and could not feel his head on the rest of his body. Notes that his baseline neuropathy was up to the mid forearms and down, has never experienced numbness and tingling in the head before. Went to the ER but was told it was likely secondary to diabetic neuropathy. Follow-up with hisprimary and there is concern for this being something neurologic and was referred. Does not feel hehas any significant weakness but has difficulty moving the hands, worsening dexterity since this sta rted. Has not had any labs or imaging since this began. Notes her symptoms have been constant ever since and have not been unchanged. Did have left leg amputation below the knee after he broke his ankle in 2019 and it was infected. States he is not diabetic related. However, glucose is still poorlycontrolled at this time. Takes gabapentin for his baseline neuropathy as well as amitriptyline withno significant benefit. Does note intermittent vision changes as well, this morning it feels like he has blind resolved with some blurry vision in both his peripherals. This is happened before, occasionally will get blobs in his peripheral vision, has not yet seen his eye doctor but has appointment scheduled. Currently gets around in a wheelchair at home. Is on a Dexcom pump but is having difficulty as the rep moved outof this area and will be having a maikel installed. Denies any heavy alcohol use or heavy metal exposure, no chemotherapy history and does not take any supplements. Review of Systems ACTIVE PROBLEM LIST Hypertension Gerd (Gastroesophageal Reflux Disease) Microalbuminuria History of Diabetic Gastroparesis Diabetic Polyneuropathy Associated With Type 1 Diabetes Mellitus ([facility]) Depression With Anxiety Charcot's Joint of Right Foot Hyperlipidemia Tobacco Abuse Hypothyroidism Pvd (Peripheral Vascular Disease) ([facility]) Neurodermatitis PAST MEDICAL HISTORY Diagnosis Date Cellulitis of left lower extremity 07/20/2019 Charcot's joint of right foot 11/11/2016 Chronic bilateral low back pain without sciatica Closed trimalleolar fracture of left ankle 05/23/2019 Depression with anxiety 01/25/2016 Diabetic polyneuropathy associated with type 1 diabetes mellitus ([facility]) 01/25/2016 Brittle, on disability. Dx 10 y.o. DKA (diabetic ketoacidosis) ([facility]) 08/2014, 10/2017 GERD (gastroesophageal reflux disease) 01/25/2016 Hep C w/o coma, chronic ([facility]) 09/29/2018 Epclusa x 12 weeks to 2021 History of drug abuse in remission ([facility]) 09/29/2018 History of ischemic colitis 03/14/2016 History of left below knee amputation ([facility]) 07/14/2019 Hyperlipidemia 02/14/2017 Hypertension Hypothyroidism 11/06/2021 IVDU (intravenous drug user) 05/27/2019 Lactose intolerance 07/30/2016 Moderate protein-calorie malnutrition ([facility]) 11/01/2021 Neurodermatitis 01/23/2023 Non-healing wound of amputation stump ([facility]) 09/24/2022 Osteomyelitis of left tibia/BKA with MRSA ([facility]) 11/06/2021 Pancreatitis 08/2014 Perianal abscess 08/03/2018 PVD (peripheral vascular disease) ([facility]) 01/10/2020 Tobacco abuse 05/27/2019 Medications: Reviewed amitriptyline (ELAVIL) 25 mg tablet Take 1 tablet by mouth daily at bedtime. amLODIPine (NORVASC) 5 mg tablet Take 1 tablet by mouth once daily. atorvastatin (LIPITOR) 40 mg tablet Take 1 tablet by mouth daily at bedtime. For cholesterol. pantoprazole DR (PROTONIX) 40 mg tablet Take 1 tablet by mouth two times a day. sertraline (ZOLOFT) 50 mg tablet Take 1 tablet by mouth once daily. gabapentin (NEURONTIN) 300 mg capsule Take 1 cap three times a day during the day and 2 caps at bedtime lisinopril (ZESTRIL) 40 mg tablet Take 1 tablet by mouth once daily. levothyroxine (SYNTHROID) 25 mcg tablet Take 1 tablet by mouth every morning. LANTUS SOLOSTAR U-100 INSULIN 100 unit/mL (3 mL) Inject 18 Units subcutaneously daily at bedtime. Per [facility]. insulin lispro (HUMALOG KWIKPEN) 100 unit/mL Inject 6 Units subcutaneously three times a day with meals. Plus sliding scale. Per [facility]. albuterol HFA (PROVENTIL HFA, VENTOLIN HFA) 90 mcg/actuation inhaler Inhale 2 Puffs as instructed every 4 hours as needed for wheezing/shortness of breath. Insulin Dudley, Disposable, (BD ULTRAFINE III MINI PEN) 31 gauge x 3/16 USE WITH INSULIN PENS 4TIMES DAILY flash glucose sensor (FREESTYLE MAIKEL 2 SENSOR) kit Check 8 times per day ALLERGIES No Known Allergies FAMILY HISTORY Problem Relation Age of Onset Hypertension Mother Diabetes Mother Stroke Mother Heart Mother CHF Cataract Mother Hypertension Father COPD Father Emphysema Father Colon Cancer Father Colon Cancer Paternal Grandfather Colon Cancer Paternal Uncle Lung Cancer No Family History PAST SURGICAL HISTORY Procedure Laterality Date AMPUTATION LOW LEG THRU TIB/FIB Left 06/24/2019 Left BKA COLONOSCOPY 03/17/2016 resolved colitis, presumed ischemic COLONOSCOPY SCREENING 06/19/2022 poor prep. Repeat in 11/2022 recommended. EGD 11/02/20172013 IR VASCULAR ACCESS TEAM PICC INSERTION RADIO 06/17/2019 REVISION OF LOWER LEG Left 07/06/2020 I&D, revision of BKA stump REVISION OF LOWER LEG Left 09/19/2021 I&D stump REVISION OF LOWER LEG Left 01/27/2020 I&D stump SOCIAL HISTORY No social history on file. Tobacco Use: High Risk (08/24/2024) Patient History Smoking Tobacco Use: Every Day Smokeless Tobacco Use: Never Passive Exposure: Not on file PHYSICAL EXAM 08/24/24 0911 BP: 143/78 Pulse: 94 Neurological Exam Cognitive and Language: Alert and answered questions appropriately. Language was fluent. Followed simple and complex commands. Cranial Nerves: Visual beaulieu were full tested binocularly to finger counting in all 4 quadrants with no visual extinction. Pupils were equal and both reactive to light. Extraocular movements were full with no diplopia or nystagmus. Facial sensation was normal to light touch in V1 to V3. Slight decrease in sensation to the parietal area and posterior aspect of the head bilaterally. Slight decrease in facial strength to the left forehead otherwise facial strength seems to be intact. Normal hearing grossly bilaterally. Palatal raise was symmetric. Shoulder shrug was symmetric. Tongue protrusionwas symmetric with no fasciculations. Power: Decreased branch lead strength bilaterally at 4+5 Right Left Shoulder Abduction: 5 5 Elbow Extension 5 5 Elbow Flexion 5 5 Wrist Extension 5 5 Finger Extension 5 5 Finger Abduction 5 5 Right Left Hip Flexion 5 5 Knee Extension 5 Knee Flexion 5 Dorsiflexion 5 Plantar Flexion 5 Rest tremor: absent Tone: Normal in all four limbs Reflexes: Right Left Brachioradialis 2 2 Biceps 2 2 Patella 0 0 Ankle 0 Not available Sensory: Absent sensation to vibration at the right lower extremity throughout, decreased at the left knee. Absent sensation to pinprick and temperature throughout the lower extremity below the knee,and diminished above the knee bilaterally to the lower extremities. Upper extremities with decreased vibration to the wrist, decreased sensation to pinprick and temperature up to the mid forearm bilaterally Coordination: Normal finger to nose. Patient with left lower extremity amputation, gait not tested Labs: Lab Results Component Value Date WBC 9.98 11/05/2021 HCT 46.3 11/05/2021 MCV 89.7 11/05/2021 PLT 181 11/05/2021 Lab Results Component Value Date HBA1C 11.0 10/29/2022 HBA1C 10.6 05/05/2022 HBA1C 10.1 11/05/2021 HBA1C 11.3 06/11/2019 HBA1C 10.5 05/27/2019 HBA1C 13.7 09/29/2018 HBA1C 13.4 11/11/2016 HBA1C >14 05/21/2016 HBA1C 12.7 01/25/2016 HBA1C 11.9 09/19/2014 Cholesterol, Total Date Value Ref Range Status 10/29/2022 183 <200 mg/dL Final Comment: <200 mg/dL, Desirable 200-239 mg/dL, Borderline high >239 mg/dL, High HDL Cholesterol Date Value Ref Range Status 10/29/2022 63 >39 mg/dL Final Comment: 40-59 mg/dL, Acceptable >59 mg/dL, High: Negative risk factor for coronary heart disease <40 mg/dL, Low: Positive risk factor for coronary heart disease LDL Cholesterol Date Value Ref Range Status 10/29/2022 103 (H) <100 mg/dL Final Comment: <100 mg/dL, Optimal 100-129 mg/dL, Near optimal/above optimal 130-159 mg/dL, Borderline high 160-189 mg/dL, High >189 mg/dL, Very high Secondary prevention optimal LDL Cholesterol levels are recommended to be < 70 mg/dL Triglyceride Date Value Ref Range Status 10/29/2022 84 <150 mg/dL Final Comment: <150 mg/dL, Normal 150-199 mg/dL, Borderline high 200-499 mg/dL, High >499 mg/dL, Very high Radiology: This note was dictated using [employer] speech recognition software and may contain some errors that were a result of the program not accurately transcribing what was dictated, despite efforts to make corrections. Note that unless urgent, test and MRI results will be discussed at next follow- up visit. PROMIS (Patient-Reported Outcomes Measurement Information System) is a set of person-centered measures that evaluates and monitors physical, social, and emotional health. It can be used with the general population and with individuals living with chronic conditions. PROMIS 10: PHYSICAL AND MENTAL HEALTH: 07/20/2019 PHQ-9 PHQ-2 Score 0 Medical Decision Making: Medical Decision Making Level: 1 - N/A I spent a total of 50 minutes on the date of the service which included preparing to see the patient, [id number] patient care, completing clinical documentation, obtaining and/or reviewing separately obtained history, performing a medically appropriate examination, counseling and educating the pat ient/family/caregiver, and ordering medications, tests, or procedures. [facility] Telephone encounter Note * Telephone Encounter - Mario Lozano MA - 08/23/2024 8:22 AM EST Please call patient to schedule Mario Lozano MA [facility]02-04-2025 Miscellaneous Notes* Telephone Encounter - Mario Lozano MA - 08/23/2024 8:22 AM EST Please call patient to schedule Mario Lozano MA * Telephone Encounter - Margarita Licona APRN.CNP - 08/23/2024 7:10 AM EST Patient requesting to have colonoscopy with [facility] instead of [facility]. He will need to see general surgeryfirst Margarita Licona APRN.CNP documented in this encounterMartin [facility]02-[facility] Telephone encounter Note * Telephone Encounter - Margarita Licona APRN.CNP - 08/23/2024 7:10 AM EST Patient requesting to have colonoscopy with [facility] instead of [facility]. He will need to see general surgeryfirst Margarita Licona APRN.CNP [facility]02-03-2025 Instructions* Patient Instructions* Jacques Nettles APRN.CNP - 08/22/2024 3:01 PM EST [facility] [address] [place] [address] [place] [address] SMOKING CESSATION EDUCATION Why do I need to know about the health risks of cigarette smoking? Cigarette smoking is the most preventable cause of illness and . Cigarettes are filled with nicotine, which acts like a poison in your body. What are the health risks of cigarette smoking? You may have breathing problems that make it difficult for you to do daily activities or play sports. You have a higher risk of bone fractures because smoking can cause osteoporosis (brittle bones). If you fall asleep with a lit cigarette, you can start a fire. Cigarette smoking can also cause the following health problems: Cancer: Heart and blood vessel disease: The nicotine in tobacco causes an increase in your heart rate and blood pressure. Nicotine also causes your blood vessels to narrow. This can lead to blood clots in your heart or brain and cause a heart attack or stroke. Cigarette smoke has carbon monoxide init. This can decrease the amount of oxygen flowing to your heart and other organs. Lung disease: The chemicals in cigarette smoke can damage your lungs. This causes a buildup of dirtand waste products in your lungs. Many people who smoke have a long-term cough as a result. Cigarette smoking may also cause long-term lung infections or diseases, such as asthma, emphysema, or chronic bronchitis. You are also at higher risk for respiratory illnesses, such as colds or pneumonia. Gastrointestinal disease: Cigarette smoking increases the amount of acid in your stomach. This can cause an ulcer or gastric reflux. Women and smoking: You have a higher risk of heart and blood vessel disease if you smoke and take control pills. The risk is more serious is you are 35 years or older. Why should I quit smoking? Your health will improve and your risks for many diseases will decrease.Your breath, clothes, and hair will no longer smell like smoke. Tobacco will no longer stain your teeth. Tobacco smoke is dangerous to others. If you quit, you will decrease the risks to those aroundyou, such as your children or family members. Where can I go for support and more information? There are many ways to quit smoking. Some may workbetter for you than others. Your caregiver can help you find the best plan to quit. Smokefree.gov Web Address: www.smokefree.gov Phone: [place] Web Address: www.lung.org [address] [place] [address] , [place] Phone: Phone: [facility] Smoking Cessation Program [email or web address].pdf CT Lung Screen Results The CT scan that you will have done will show if you have any nodules (small spots) in your lungs that are suspicious for cancer. Around 90% of the patients who have this scan done are found to have at least one nodule. Most nodules are benign (not cancer) and of no harm to you at all. A specialistwill make a scientific evaluation about whether or not a nodule is worrisome based on its size and shape. The radiologist who will read your scan will put it into one of four categories: LUNG-RADS Category Description Overall Probability of Malignancy Recommended Follow-Up 1 Negative No nodules and definitely benign (non-cancerous nodules) Essentially 0. 1 Year - Follow-up Low dose CT 2 Benign Appearance or Behavior Nodules with a very low likelihood of becoming cancer due to size or lack of growth Less than 1% 1 Year - Follow-up Low dose CT 3 Probably Benign Probably benign finding, short term follow-up recommended 1 to 2% 6 Months - Follow-up Low dose CT 4 Suspicious Findings for which additional diagnostic testing and/or biopsy is recommended Will be calculated based on nodule characteristics. Dependent on what is seen on the exam. (3 month follow-up CT, PET-CT, or biopsy) 0 Incomplete Findings suggestive of an inflammatory or infectious process AND/OR part of the lung cannot be evaluated Additional lung cancer screening CT imaging needed AND/OR comparison with prior chest CT imaging At times, we may see something outside of the lungs on the scan that could be a health concern. Below are some of the most common findings: S Clinically Significant or Potentially Clinically Significant Findings (non lung cancer) Referral or additional imaging/labs depending on result. Approximately 10% of people receive this result. Coronary Artery Calcifications (Moderate or Severe) - Referral to cardiology for further work-up and recommendations. Thyroid Nodule - TSH level and Thyroid Ultrasound dependent on size, referral to endocrinology. Adrenal Nodule - blood work and referral to endocrinology. Others Lung Cancer Screening hotline: [phone] Lung Cancer Screening [phone] Billing Questions: or [email or web address] Specialist Providers: (Blanca Torrez PA-C; Gustavo Sawyer CNP; Jackie Zarco CNP, Alejandra Lofton CNP; Anita Larkin CNP; EMMANUEL Lucia; Jacques Nettles CNP; Tori Waller CNP; Alma Willson CNP; Dilma Montgomery RETAINING ROOM CUTTER; Angeles Redman PA-C; Leia Hughes PA-C; Bhumi Leija CNP; Susan Julio CNP; Nancy Castañeda CNP): [phone] documented in this encounter[facility] NoteHNO ID: [id number] Author: JACQUES NETTLES APRN.MARTHA Service: ? Author Type: Nurse Practitioner Type: Progress Notes Filed: 08/22/2024 15:09 Note Text: LUNG SCREENING VISIT PRIMARY CARE PHYSICIAN: Jah Mas MD PULMONARY PROVIDER: none Results will be communicated via letter or electronic record if applicable. Visit Delivery: In Person Patient Visit Type: New to Screening Current or Ex-smoker? [Current Exam Type: baseline LDCT Number of Pack Years: 74 Current smoker (=0) REQUESTER: The referring provider advised the patient to have screening. HISTORY OF PRESENT ILLNESS: Tori Cantor is a 49 year old Active smoker who presents for lung screening. Left below the knee amputee, in a wheelchair. Respiratory symptoms include: SOB: Yes, at rest, dressing and bathing Chest tightness: No Coughing: Yes: With mucus White and Thick Hemoptysis: No Wheezing: Yes, in bed Fever/Chills: No Recent Respiratory Infection: Yes 06/2024 had bronchitis, no treatment required Unintentional weight loss: No Last 6 Encounter Wt Readings: Date: Wt: 08/10/2024 74.9 kg (165 lb 2 oz) 10/30/2023 74.3 kg (163 lb 11.2 oz) 07/29/2023 76.1 kg (167 lb 12.8 oz) 09/24/2022 72.5 kg (159 lb 12.8 oz) 08/13/2022 72.6 kg (160 lb) 05/09/2022 70.3 kg (155 lb) ECOG PERFORMANCE STATUS: 3- Capable of only limited selfcare, confined to bed/chair > 50% of waking hrs. Modified Medical Research [place] Dyspnea Scale (MMRC) I am too breathless to leave the house or I am breathless when dressing 4 PAST MEDICAL HISTORY Diagnosis Date Cellulitis of left lower extremity 07/20/2019 Charcot's joint of right foot 11/11/2016 Chronic bilateral low back pain without sciatica Closed trimalleolar fracture of left ankle 05/23/2019 Depression with anxiety 01/25/2016 Diabetic polyneuropathy associated with type 1 diabetes mellitus ([facility]) 01/25/2016 Brittle, on disability. Dx 10 y.o. DKA (diabetic ketoacidosis) ([facility]) 08/2014, 10/2017 GERD (gastroesophageal reflux disease) 01/25/2016 Hep C w/o coma, chronic ([facility]) 09/29/2018 Epclusa x 12 weeks to 2021 History of drug abuse in remission ([facility]) 09/29/2018 History of ischemic colitis 03/14/2016 History of left below knee amputation ([facility]) 07/14/2019 Hyperlipidemia 02/14/2017 Hypertension Hypothyroidism 11/06/2021 IVDU (intravenous drug user) 05/27/2019 Lactose intolerance 07/30/2016 Moderate protein-calorie malnutrition ([facility]) 11/01/2021 Neurodermatitis 01/23/2023 Non-healing wound of amputation stump ([facility]) 09/24/2022 Osteomyelitis of left tibia/BKA with MRSA ([facility]) 11/06/2021 Pancreatitis 08/2014 Perianal abscess 08/03/2018 PVD (peripheral vascular disease) ([facility]) 01/10/2020 Tobacco abuse 05/27/2019 PAST SURGICAL HISTORY Procedure Laterality Date AMPUTATION LOW LEG THRU TIB/FIB Left 06/24/2019 Left BKA COLONOSCOPY 03/17/2016 resolved colitis, presumed ischemic COLONOSCOPY SCREENING 06/19/2022 poor prep. Repeat in 11/2022 recommended. EGD 11/02/2017 2014 IR VASCULAR ACCESS TEAM PICC INSERTION RADIO 06/17/2019 REVISION OF LOWER LEG Left 07/06/2020 IANDD, revision of BKA stump REVISION OF LOWER LEG Left 09/19/2021 IANDD stump REVISION OF LOWER LEG Left 01/27/2020 IANDD stump FAMILY HISTORY Problem Relation Age of Onset Hypertension Mother Diabetes Mother Stroke Mother Heart Mother CHF Cataract Mother Hypertension Father COPD Father Emphysema Father Colon Cancer Father Colon Cancer Paternal Grandfather Colon Cancer Paternal Uncle Lung Cancer No Family History amitriptyline (ELAVIL) 25 mg tablet Take 1 tablet by mouth daily at bedtime. amLODIPine (NORVASC) 5 mg tablet Take 1 tablet by mouth once daily. atorvastatin (LIPITOR) 40 mg tablet Take 1 tablet by mouth daily at bedtime. For cholesterol. pantoprazole DR (PROTONIX) 40 mg tablet Take 1 tablet by mouth two times a day. sertraline (ZOLOFT) 50 mg tablet Take 1 tablet by mouth once daily. gabapentin (NEURONTIN) 300 mg capsule Take 1 cap three times a day during the day and 2 caps at bedtime lisinopril (ZESTRIL) 40 mg tablet Take 1 tablet by mouth once daily. levothyroxine (SYNTHROID) 25 mcg tablet Take 1 tablet by mouth every morning. LANTUS SOLOSTAR U-100 INSULIN 100 unit/mL (3 mL) Inject 18 Units subcutaneously daily at bedtime. Per [facility]. insulin lispro (HUMALOG KWIKPEN) 100 unit/mL Inject 6 Units subcutaneously three times a day with meals. Plus sliding scale. Per [facility]. albuterol HFA (PROVENTIL HFA, VENTOLIN HFA) 90 mcg/actuation inhaler Inhale 2 Puffs as instructed every 4 hours as needed for wheezing/shortness of breath. Insulin Dudley, Disposable, (BD ULTRAFINE III MINI PEN) 31 gauge x 3/16 USE WITH INSULIN PENS 4TIMES DAILY flash glucose sensor (FREESTYLE MAIKEL 2 SENSOR) kit Check 8 times per day ALLERGIES No Known Allergies The medications and allergies were revie (more content not included)...[facility]02-03-2025 History of Present illness Narrative* Jacques Nettles APRN.RETAINING ROOM CUTTER - 08/22/2024 2:44 PM EST Images from the original note were not included. LUNG SCREENING VISIT PRIMARY CARE PHYSICIAN: Jah Mas MD PULMONARY PROVIDER: none Results will be communicated via letter or electronic record if applicable. Visit Delivery: In Person Patient Visit Type: New to Screening Current or Ex-smoker? [Current Exam Type: baseline LDCT Number of Pack Years: 74 Current smoker (=0) REQUESTER: The referring provider advised the patient to have screening. HISTORY OF PRESENT ILLNESS: Tori Cantor is a 49 year old Active smoker who presents for lung screening. Left below the knee amputee, in a wheelchair. Respiratory symptoms include: SOB: Yes, at rest, dressing and bathing Chest tightness: No Coughing: Yes: With mucus White and Thick Hemoptysis: No Wheezing: Yes, in bed Fever/Chills: No Recent Respiratory Infection: Yes 06/2024 had bronchitis, no treatment required Unintentional weight loss: No Last 6 Encounter Wt Readings: Date: Wt: 08/10/2024 74.9 kg (165 lb 2 oz) 10/30/2023 74.3 kg (163 lb 11.2 oz) 07/29/2023 76.1 kg (167 lb 12.8 oz) 09/24/2022 72.5 kg (159 lb 12.8 oz) 08/13/2022 72.6 kg (160 lb) 05/09/2022 70.3 kg (155 lb) ECOG PERFORMANCE STATUS: 3- Capable of only limited selfcare, confined to bed/chair > 50% of waking hrs. Modified Medical Research [place] Dyspnea Scale (MMRC) I am too breathless to leave the house or I am breathless when dressing 4 PAST MEDICAL HISTORY Diagnosis Date Cellulitis of left lower extremity 07/20/2019 Charcot's joint of right foot 11/11/2016 Chronic bilateral low back pain without sciatica Closed trimalleolar fracture of left ankle 05/23/2019 Depression with anxiety 01/25/2016 Diabetic polyneuropathy associated with type 1 diabetes mellitus ([facility]) 01/25/2016 Brittle, on disability. Dx 10 y.o. DKA (diabetic ketoacidosis) ([facility]) 08/2014, 10/2017 GERD (gastroesophageal reflux disease) 01/25/2016 Hep C w/o coma, chronic ([facility]) 09/29/2018 Epclusa x 12 weeks to 2021 History of drug abuse in remission ([facility]) 09/29/2018 History of ischemic colitis 03/14/2016 History of left below knee amputation ([facility]) 07/14/2019 Hyperlipidemia 02/14/2017 Hypertension Hypothyroidism 11/06/2021 IVDU (intravenous drug user) 05/27/2019 Lactose intolerance 07/30/2016 Moderate protein-calorie malnutrition ([facility]) 11/01/2021 Neurodermatitis 01/23/2023 Non-healing wound of amputation stump ([facility]) 09/24/2022 Osteomyelitis of left tibia/BKA with MRSA ([facility]) 11/06/2021 Pancreatitis 08/2014 Perianal abscess 08/03/2018 PVD (peripheral vascular disease) ([facility]) 01/10/2020 Tobacco abuse 05/27/2019 PAST SURGICAL HISTORY Procedure Laterality Date AMPUTATION LOW LEG THRU TIB/FIB Left 06/24/2019 Left BKA COLONOSCOPY 03/17/2016 resolved colitis, presumed ischemic COLONOSCOPY SCREENING 06/19/2022 poor prep. Repeat in 11/2022 recommended. EGD 11/02/20172013 IR VASCULAR ACCESS TEAM PICC INSERTION RADIO 06/17/2019 REVISION OF LOWER LEG Left 07/06/2020 I&D, revision of BKA stump REVISION OF LOWER LEG Left 09/19/2021 I&D stump REVISION OF LOWER LEG Left 01/27/2020 I&D stump FAMILY HISTORY Problem Relation Age of Onset Hypertension Mother Diabetes Mother Stroke Mother Heart Mother CHF Cataract Mother Hypertension Father COPD Father Emphysema Father Colon Cancer Father Colon Cancer Paternal Grandfather Colon Cancer Paternal Uncle Lung Cancer No Family History amitriptyline (ELAVIL) 25 mg tablet Take 1 tablet by mouth daily at bedtime. amLODIPine (NORVASC) 5 mg tablet Take 1 tablet by mouth once daily. atorvastatin (LIPITOR) 40 mg tablet Take 1 tablet by mouth daily at bedtime. For cholesterol. pantoprazole DR (PROTONIX) 40 mg tablet Take 1 tablet by mouth two times a day. sertraline (ZOLOFT) 50 mg tablet Take 1 tablet by mouth once daily. gabapentin (NEURONTIN) 300 mg capsule Take 1 cap three times a day during the day and 2 caps at bedtime lisinopril (ZESTRIL) 40 mg tablet Take 1 tablet by mouth once daily. levothyroxine (SYNTHROID) 25 mcg tablet Take 1 tablet by mouth every morning. LANTUS SOLOSTAR U-100 INSULIN 100 unit/mL (3 mL) Inject 18 Units subcutaneously daily at bedtime. Per [facility]. insulin lispro (HUMALOG KWIKPEN) 100 unit/mL Inject 6 Units subcutaneously three times a day with meals. Plus sliding scale. Per [facility]. albuterol HFA (PROVENTIL HFA, VENTOLIN HFA) 90 mcg/actuation inhaler Inhale 2 Puffs as instructed every 4 hours as needed for wheezing/shortness of breath. Insulin Dudley, Disposable, (BD ULTRAFINE III MINI PEN) 31 gauge x 3/16 USE WITH INSULIN PENS 4TIMES DAILY flash glucose sensor (FREESTYLE MAIKEL 2 SENSOR) kit Check 8 times per day ALLERGIES No Known Allergies The medications and allergies were reviewed and reconciled for this patient and deemed current. Lung Cancer Risk Factors: 1.Tobacco Use: Start Age 12, Quit Age: N/A, Average packs per day 2, Pack Years 73 2. Passive Smoke Exposure: Yes, as an Adult 3. Personal hx of malignancy: No, Type of Cancer: 4. 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 Race: White 6. Education: High School Graduate 7. BMI:There is no height or weight on file to calculate BMI. Patient-entered Height: 5'9 Patient-entered Weight: 165 pounds 8. COPD: No 9. Pneumonia in the past 5 years: No 10. Is there a history of lung cancer in a first degree relative? No 11. Is there a history of lung cancer in a non-first degree relative? No 12. Is there a history of any other cancer in a first degree relative? Yes Health Maintenance Immunization History Administered Date(s) Administered COVID-19 original vaccine, age 12+ yr, monovalent (SimpleHoney - PURPLE TOP) 07/04/2021 COVID-19 original vaccine, full dose, monovalent (MODERNA) 10/18/2020 11/15/2020 02/07/2022 COVID-19 vaccine, age 12+ yr (BetterWorks (Closed)-SkyFuel COMIRNATY) 04/22/2023 08/10/2024 hepatitis A (HepA) vaccine, adult (HAVRIX, VAQTA) 12/24/2016 05/10/2019 hepatitis A-hepatitis B (HepA-HepB) vaccine (TWINRIX) 09/10/2011 hepatitis B (HepB) vaccine, 3-dose series, age 20+ yr (ENGERIX-B, RECOMBIVAX HB) 12/24/2016 05/09/2022 influenza (IIV3) vaccine, age 6 mo - 64 yr, trivalent (AFLURIA, FLULAVAL, FLUVIRIN, FLUZONE) 08/10/2024 influenza (IIV4) vaccine, age 6 mo - 64 yr, quadrivalent (AFLURIA, FLULAVAL, FLUZONE) 05/09/2022 04/22/2023 pneumococcal conjugate (PCV20) vaccine, 20 valent (PREVNAR 20) 11/12/2022 pneumococcal polysaccharide (PPV23) vaccine, 23 valent (PNEUMOVAX 23) 03/17/2016 tetanus diphtheria pertussis (Tdap) vaccine, age 7+ yr (ADACEL, BOOSTRIX) 01/23/2023 Colonoscopy: Mammogram: DATA REVIEW I have directly visualized the testing documented: Prior Imaging: Last CT/CTA Chest/Lungs No resulted procedures found. Last CT Chest - Impression Only No resulted procedures found. Last XR Chest - Impression Only XR CHEST 2V FRONTAL/LAT Exam End: 07/30/2023 2:49 PM (Final result) Impression: IMPRESSION: No acute radiographic abnormality. ... Pulmonary Function Testing: No textual results found for the specified procedure(s). PHYSICAL EXAM: BP 142/90 Pulse 102 Resp 16 SpO2 97% Deferred ASSESSMENT and RECOMMENDATIONS: 1. Screening for lung cancer: Six year risk for lung cancer: 1.68% [email or web address]://youtu.be/[email or web address] I have determined that the patient is eligible for a low dose CT based on age, absence of signs or symptoms of lung cancer, and total pack years: Yes. The patient and I engaged in shared decision making, including the use of one or more decision aids, to include benefits, harms, follow-up diagnostic testing, over-diagnosis, false positive rate, andtotal radiation exposure. The patient understands and feels comfortable with it: Yes. The patient was counseled on the importance of adherence to annual LDCT lung cancer screening, impact of comorbidities and ability or willingness to undergo diagnosis and treatment. The patient understands and feels comfortable with it:Yes. 2. Nicotine dependence: The patient was counseled on the importance of smoking cessation if currentsmoker and, if appropriate, offered additional tobacco cessation counseling services - Smoking Cessation Counseling. SMOKING CESSATION COUNSELING Smoking cessation methods including Behavior Modification were discussed with the patient and assistance offered. Considering hypnosis. Discussed Aculaser. The medical conditions adversely affected by cigarette use include:COPD, Emphysema, and Lung Cancer. The patient is currently not ready to quit. I personally spent 3 minutes in counseling. The time spent in smoking cessation counseling is exclusive of any other counseling during this visit. Jacques Nettles APRN.RETAINING ROOM CUTTER NPI #: August 22, 2024 2:52 PM documented in this encounterMartin [facility]01-30-[facility]25 Evaluation note* Diagnosis Onset Date Resolution Status Admit Date Counseling for insulin pump acute August 18, 2024 9:09am [facility] Work Phone: [phone] Instructions* Patient Instructions* Margarita Licona APRN.MARTHA - 08/10/2024 5:52 PM EST Increase Gabapentin to 2 capsules at bedtime, continue with 1 capsule the other times of the day Screening schedule The following prevention plan is recommended: Dilated Retinal Exam due on 11/18/2022- Call [facility] to schedule as soon as possible Lung Cancer Screening Never done Shingrix Vaccine(1 of 2) Never done WHAT YOU CAN DO TO PREVENT FALLS Many falls can be prevented. By making some changes, you can lower your chances of falling. Four things YOU can do to prevent falls for you* and your caregiver 1. Begin a regular exercise program Exercise is one of the most important ways to lower your chances of falling. It makes you stronger and helps you feel better. Exercises that improve balance and coordination (like Abdirahman Chi) are the most helpful. Lack of exercise leads to weakness and increases your chances of falling. Ask your doctor or health care provider about the best type of exercise program for you. 2. Have your health care provider review your medicines Have your doctor or pharmacist review all the medicines you take, even skby-cer-poyvejs medicines. As you get older, the way medicines work in your body can change. Some medicines, or combinations of medicines, can make you sleepy or dizzy andcan cause you to fall. 3. Have your vision checked Have your eyes checked by an eye doctor at least once a year. You may be wearing the wrong glasses or have a condition like glaucoma or cataracts that limits your vision. Poor vision can increase your chances of falling. 4. Make your home safer About half of all falls happen at home. To make your home safer: Remove things you can trip over (like papers, books, clothes, and shoes) from stairs and places where you walk. Remove small throw rugs or use double-sided tape to keep the rugs from slipping. Keep items you use often in cabinets you can reach easily without using a step stool. Have grab bars put in next to your toilet and in the tub or shower. Use non-slip mats in the bathtub and on shower floors. Improve the lighting in your home. As you get older, you need brighter lights to see well. Hang light-weight curtains or shades to reduce glare. Have handrails and lights put in on all staircases. Wear shoes both inside and outside the house. Avoid going barefoot or wearing slippers. For more information, contact: Centers for Disease Control and Prevention www.cdc.gov/injury * This information may not apply if you have certain medical conditions. documented in this encounterMartin [facility]01-22-[facility]25 NoteHNO ID: [id number] Author: MARGARITA LICONA APRN.CNP Service: ? Author Type: Nurse Practitioner Type: Progress Notes Filed: 08/10/2024 18:58 Note Text: Tori Cantor is a 49 year old male here for a Medicare wellness visit. Medicare Health Risk Assessment General Health Good Exercise: Minutes/Day 0 min Exercise: Days/Week 0 days Alcohol: Daily Use Never Alcohol: Drinks/Day Patient does not drink Alcohol: 6 or more drinks Never Feel off balance Yes Concerns: Teeth/Dentures No Concerns: Sexual function No Troubled by feelings None of the above Frequency: Eating healthy diet Several days ADLs requiring help Grocery shopping; Housework; Driving Safety precautions in home/vehicle Yes Smoke, vape, chews tobacco Yes, but I'm not ready to quit Difficulty hearing Yes Difficulty seeing Yes Current Providers Specialists: I have reviewed specialist-related care of the patient in the medical record. Current care team: Patient Care Team: Jah Mas MD as PCP - General (Internal Medicine) Jah Mas MD as PCP - Endocrinology (Internal Medicine) Maria Elena Parekh APRN.CNP as Referring (Nurse Practitioner) Maria Elena Parekh APRN.CNP as Referring (Nurse Practitioner) Margarita Licona APRN.CNP as Director [employer] Operations (Internal Medicine) [facility] Medical/Family history review Reviewed and updated problem list, medical/surgical/family/social history, medications, and allergies. Opioid use review Opioid Medications (last 90 days) No data to display Anxiety/Depression screening Recommendation: no further intervention at this time Cognitive screening Mini Cog Score: 3 Cognitive screening reviewed and No further action needed (score 3-5). Functional Observation Was the patient's Timed Up AND Go test unsteady or >= 12 seconds? No Advance Care Planning Patient did not wish or was not able to name a surrogate decision maker or provide an advance care plan Measurements BP 130/86 Pulse 101 Resp 12 Wt 74.9 kg (165 lb 2 oz) SpO2 99% BMI 24.38 kg/m? Vision Screening: Follows with optometry/ophthalmology Assessment/Plan Medicare annual wellness visit, initial (Z00.00) - Counseled on healthy diet and regular exercise - Fall avoidance information provided - Personalized prevention plan provided - Smoking cessation encouraged; discussed risks to health and quitting strategies. Patient is not ready to quit - Colorectal cancer screening - patient sees [facility] and will likely have done soon - Lung cancer screening - referral placed - Patient counseled on and acknowledged vaccine benefits/risks/side effects; VIS provided: Influenza - Follow-up for Medicare Wellness exam in one year Additional Concerns The following concerns were also discussed with the patient: He is taking all medications as prescribed, denies side effects. Diabetes is managed by cleaner operator. His last diabetic eye exam was over two years ago. He reports worsening numbness/tingling RLE and bilateral arms, new onset facial numbness/tingling. He has been falling because of this. Also has concerns about memory loss. Diabetes is not well controlled. BP 130/86 Pulse 101 Resp 12 Wt 74.9 kg (165 lb 2 oz) SpO2 99% BMI 24.38 kg/m? Physical Exam Vitals reviewed. Constitutional: Appearance: Normal appearance. Cardiovascular: Rate and Rhythm: Normal rate and regular rhythm. Pulses: Dorsalis pedis pulses are 1+ on the right side. Heart sounds: Normal heart sounds. Pulmonary: Effort: Pulmonary effort is normal. Breath sounds: Normal breath sounds. No wheezing, rhonchi or rales. Musculoskeletal: Right foot: Charcot foot present. Left Lower Extremity: Left leg is amputated below knee. Feet: Right foot: Protective Sensation: 6 sites tested. 0 sites sensed. Skin integrity: Skin integrity normal. Toenail Condition: Right toenails are normal. Skin: General: Skin is warm and dry. Neurological: Mental Status: He is alert. Psychiatric: Mood and Affect: Mood normal. ASSESSMENT/PLAN: 1. Medicare annual wellness visit, initial - ICD9: V70.0, ICD10: Z00.00 (primary diagnosis) See medicare wellness plan 2. Numbness and tingling - ICD9: 782.0, ICD10: R20.0, R20.2 Worsening, new onset facial numbness. Peripheral symptoms due to diabetic neuropathy, etiology unclear regarding facial symptoms. Patient also concerned about memory issues - CONSULT TO NEUROLOGY for further evaluation and recommendations 3. Memory deficit - ICD9: 780.93, ICD10: R41.3 As above - CONSULT TO NEUROLOGY 4. Frequent falls - ICD9: V15.88, ICD10: R29.6 As above - CONSULT TO NEUROLOGY 5. 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) - ICD9: 250.61, 357.2, ICD10: E10.42 Diabetes managed by endocrinology. Continue with their recommendations Increase Gabap (more content not included)...[facility] 08-10-2024 History of Present illness Narrative* Margarita Licona, 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 - 08/10/2024 5:45 PM EST Tori Cantor is a 49 year old male here for a Medicare wellness visit. Medicare Health Risk Assessment General Health Good Exercise: Minutes/Day 0 min Exercise: Days/Week 0 days Alcohol: Daily Use Never Alcohol: Drinks/Day Patient does not drink Alcohol: 6 or more drinks Never Feel off balance Yes Concerns: Teeth/Dentures No Concerns: Sexual function No Troubled by feelings None of the above Frequency: Eating healthy diet Several days ADLs requiring help Grocery shopping; Housework; Driving Safety precautions in home/vehicle Yes Smoke, vape, chews tobacco Yes, but I'm not ready to quit Difficulty hearing Yes Difficulty seeing Yes Current Providers Specialists: I have reviewed specialist-related care of the patient in the medical record. Current care team: Patient Care Team: Jah Mas MD as PCP - General (Internal Medicine) Jah Mas MD as PCP - Endocrinology (Internal Medicine) Maria Elena Parekh APRN.MARTHA as Referring (Nurse Practitioner) Maria Elena Parekh APRN.CNP as Referring (Nurse Practitioner) Margarita Licona APRN.CNP as Director [employer] (Internal Medicine) [facility] Medical/Family history review Reviewed and updated problem list, medical/surgical/family/social history, medications, and allergies. Opioid use review Opioid Medications (last 90 days) No data to display Anxiety/Depression screening Recommendation: no further intervention at this time Cognitive screening Mini Cog Score: 3 Cognitive screening reviewed and No further action needed (score 3-5). Functional Observation Was the patient's Timed Up & Go test unsteady or >= 12 seconds? No Advance Care Planning Patient did not wish or was not able to name a surrogate decision maker or provide an advance care plan Measurements BP 130/86 Pulse 101 Resp 12 Wt 74.9 kg (165 lb 2 oz) SpO2 99% BMI 24.38 kg/m Vision Screening: Follows with optometry/ophthalmology Assessment/Plan Medicare annual wellness visit, initial (Z00.00) - Counseled on healthy diet and regular exercise - Fall avoidance information provided - Personalized prevention plan provided - Smoking cessation encouraged; discussed risks to health and quitting strategies. Patient is not ready to quit - Colorectal cancer screening - patient sees [facility] and will likely have donesoon - Lung cancer screening - referral placed - Patient counseled on and acknowledged vaccine benefits/risks/side effects; VIS provided: Influenza - Follow-up for Medicare Wellness exam in one year Additional Concerns The following concerns were also discussed with the patient: He is taking all medications as prescribed, denies side effects. Diabetes is managed by cleaner operator. His last diabetic eye exam was over two years ago. He reports worsening numbness/tingling RLE and bilateral arms, new onset facial numbness/tingling. He has been falling because of this. Also has concerns about memory loss. Diabetes is not well controlled. BP 130/86 Pulse 101 Resp 12 Wt 74.9 kg (165 lb 2 oz) SpO2 99% BMI 24.38 kg/m Physical Exam Vitals reviewed. Constitutional: Appearance: Normal appearance. Cardiovascular: Rate and Rhythm: Normal rate and regular rhythm. Pulses: Dorsalis pedis pulses are 1+ on the right side. Heart sounds: Normal heart sounds. Pulmonary: Effort: Pulmonary effort is normal. Breath sounds: Normal breath sounds. No wheezing, rhonchi or rales. Musculoskeletal: Right foot: Charcot foot present. Left Lower Extremity: Left leg is amputated below knee. Feet: Right foot: Protective Sensation: 6 sites tested. 0 sites sensed. Skin integrity: Skin integrity normal. Toenail Condition: Right toenails are normal. Skin: General: Skin is warm and dry. Neurological: Mental Status: He is alert. Psychiatric: Mood and Affect: Mood normal. ASSESSMENT/PLAN: 1. Medicare annual wellness visit, initial - ICD9: V70.0, ICD10: Z00.00 (primary diagnosis) See medicare wellness plan 2. Numbness and tingling - ICD9: 782.0, ICD10: R20.0, R20.2 Worsening, new onset facial numbness. Peripheral symptoms due to diabetic neuropathy, etiology unclear regarding facial symptoms. Patient also concerned about memory issues - CONSULT TO NEUROLOGY for further evaluation and recommendations 3. Memory deficit - ICD9: 780.93, ICD10: R41.3 As above - CONSULT TO NEUROLOGY 4. Frequent falls - ICD9: V15.88, ICD10: R29.6 As above - CONSULT TO NEUROLOGY 5. 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) - ICD9: 250.61, 357.2, ICD10: E10.42 Diabetes managed by endocrinology. Continue with their recommendations Increase Gabapentin dosage due to worsening neuropathy symptoms/pain - AMITRIPTYLINE 25 MG TABLET - GABAPENTIN 300 MG CAPSULE 6. Depression with anxiety - ICD9: 300.4, ICD10: F41.8 Stable - AMITRIPTYLINE 25 MG TABLET - SERTRALINE 50 MG TABLET 7. Primary hypertension - ICD9: 401.9, ICD10: I10 - Controlled - Continue current medications - Recommend home blood pressure monitoring, to bring results to next visit - Encouraged sodium restriction, DASH or Mediterranean diet - AMLODIPINE 5 MG TABLET 8. Gastroesophageal reflux disease, unspecified whether esophagitis present - ICD9: 530.81, ICD10: K21.9 Stable - PANTOPRAZOLE 40 MG TABLET,DELAYED RELEASE 9. Charcot's joint of right foot - ICD9: 094.0, 713.5, ICD10: M14.671 Recommend referral to podiatry for monitoring, patient declined 10. PVD (peripheral vascular disease) (HCC) - ICD9: 443.9, ICD10: I73.9 Stable 11. Encounter for immunization - ICD9: V03.89, ICD10: Z23 - INFLUENZA VACCINE, AGE 6MO-64YR, TRIVALENT (AFLURIA, FLULAVAL, FLUVIRIN, FLUZONE) - PFIZER-BIONTECH COVID-19 VACCINE AGE 12+ YR (COMIRNATY) 12. Encounter for screening for lung cancer - ICD9: V76.0, ICD10: Z12.2 - CONSULT LUNG CANCER SCREENING CLINIC Margarita Licona APRN.RETAINING ROOM CUTTER documented in this encounterMartin [facility]12-[facility] Telephone encounter Note * Telephone Encounter - Rosemarie Oneill RN - 07/01/2024 10:36 AM EST Angélica from [facility] called back to report: 1) [facility] has the amitriptyline and sertraline. (Transferred from [facility]). No Rx needed from pcp. 2) [facility] needs the Rx's for levothyroxine (has no refills at [facility]), and also needs the lisinopril 40 mg (was cancelled at [facility]). [facility] need pcp to send these 2. [facility]12-13-[facility] Miscellaneous Notes* Telephone Encounter - Rosemarie Oneill RN - 07/01/2024 10:36 AM EST Ang[facility]lica from [facility] called back to report: 1) [facility] has the amitriptyline and sertraline. (Transferred from [facility]). No Rx needed from pcp. 2) [facility] needs the Rx's for levothyroxine (has no refills at [facility]), and also needs the lisinopril 40 mg (was cancelled at [facility]). [facility] need pcp to send these 2. * Telephone Encounter - Shirley Hopper RN - 07/01/2024 9:41 AM EST Unsure if pt or pharmacy called. Attempted to call pt several times with no answer and VM is full. Called pt's father and LM with him to have pt return the call. 1) Please confirm with pt the medications he is currently taking and that he is switching to [facility]. 2) Pt no showed for his 6 month f/u in April so he needs an appt as well. Spoke with Ang[facility]lica at [facility] to confirm what meds are needed as there were 5 meds ordered together on 09/19/23 for 90 with 3 refills and sent to [facility]. Angélica states they do not have a prescription or that pt is taking Sertraline 50 mg. Also Angélica states they have Amlodipine 5 mg for pt but pt told them he is taking 10 mg. Last fill for Amlodipine 5 mg was 05/17 and 1 refill is left.Because of the confusion, Angélica is going to call and speak with [facility] for clarification.Angélica notified that pt needs an appt if they speak with him. * Telephone Encounter - Emelia Mcmahon - 07/01/2024 9:31 AM EST Patient is switching pharmacies to [facility] and they are requesting the pended meds. * Telephone Encounter - Emelia Mcmahon - 07/01/2024 9:28 AM EST Prescription Refill Information The patient has been identified by name and date of : Yes Caregiver verified no other encounters exist for this prescription request: Yes Caregiver confirmed with patient/requestor that no other refills are due, in the near future, with this provider at this time: Yes The last office visit in the department: 10-30-23 Does the patient have a future office visit with this provider/department: No Requested Prescriptions Pending Prescriptions Disp Refills amitriptyline (ELAVIL) 25 mg tablet 90 tablet 3 Sig: Take 1 tablet by mouth daily at bedtime. lisinopril (ZESTRIL) 40 mg tablet 90 tablet 3 Sig: Take 1 tablet by mouth once daily. levothyroxine (SYNTHROID) 25 mcg tablet 90 tablet 3 Sig: Take 1 tablet by mouth every morning. Emelia Jimenez July 01, 2024 9:30 AM documented in this encounterMartin [facility] Hospital12-13-2024 Telephone encounter Note * Telephone Encounter - Shirley Hopper RN - 07/01/2024 10:00 AM EST Please see other phone encounter/refill request for today. Per epic med list, pt is taking 5 mg of Amlodipine. [facility]12[facility] Miscellaneous Notes* Telephone Encounter - Shirley Hopper RN - 07/01/2024 10:00 AM EST Please see other phone encounter/refill request for today. Per epic med list, pt is taking 5 mg of Amlodipine. * Telephone Encounter - Emelia Mcmahon - 07/01/2024 9:32 AM EST [facility] Caller Name: Julianna Call Back Number [phone] Reason for Call: amlodipine Additional Information: Patient is switching pharmacies and [facility] received a script from [facility] for amlodipine 5 mg, but patient stated he believed it should be for 10 mg. documented in this encounterMartin [facility] Hospital12-13-2024 Telephone encounter Note * Telephone Encounter - Shirley Hopper RN - 07/01/2024 9:41 AM EST Unsure if pt or pharmacy called. Attempted to call pt several times with no answer and VM is full. Called pt's father and LM with him to have pt return the call. 1) Please confirm with pt the medications he is currently taking and that he is switching to [facility]. 2) Pt no showed for his 6 month f/u in April so he needs an appt as well. Spoke with Ang[facility]lica at [facility] to confirm what meds are needed as there were 5 meds ordered together on 09/19/23 for 90 with 3 refills and sent to [facility]. Angélica states they do not have a prescription or that pt is taking Sertraline 50 mg. Also Angélica states they have Amlodipine 5 mg for pt but pt told them he is taking 10 mg. Last fill for Amlodipine 5 mg was 05/17 and 1 refill is left.Because of the confusion, Angélica is going to call and speak with [facility] pharmacy for clarification.Angélica notified that pt needs an appt if they speak with him. [facility]12-13-2024 Telephone encounter Note* Telephone Encounter - Emelia Mcmahon - 07/01/2024 9:32 AM EST [facility] Caller Name: Julianna Call Back Number [phone] Reason for Call: amlodipine Additional Information: Patient is switching pharmacies and [facility] received a script from [facility] for amlodipine 5 mg, but patient stated he believed it should be for 10 mg. [facility] Work Phone: [phone] Telephone encounter Note* Telephone Encounter - Emelia Mcmahon - 07/01/2024 9:31 AM EST Patient is switching pharmacies to [facility] and they are requesting the pended meds. [facility]12-13-2024 Telephone encounter Note* Telephone Encounter - Emelia Mcmahon - 07/01/2024 9:28 AM EST Prescription Refill Information The patient has been identified by name and date of : Yes Caregiver verified no other encounters exist for this prescription request: Yes Caregiver confirmed with patient/requestor that no other refills are due, in the near future, with this provider at this time: Yes The last office visit in the department: 10-30-23 Does the patient have a future office visit with this provider/department: No Requested Prescriptions Pending Prescriptions Disp Refills amitriptyline (ELAVIL) 25 mg tablet 90 tablet 3 Sig: Take 1 tablet by mouth daily at bedtime. lisinopril (ZESTRIL) 40 mg tablet 90 tablet 3 Sig: Take 1 tablet by mouth once daily. levothyroxine (SYNTHROID) 25 mcg tablet 90 tablet 3 Sig: Take 1 tablet by mouth every morning. Emelia Vides [facility] July 01, 2024 9:30 AM [facility]10-31-2024 NoteHNO ID: [id number] Author: EMELIA RUSH MA Service: ? Author Type: Vendor Management Associate Type: Progress Notes Filed: 05/19/2024 09:12 Note Text: POPULATION HEALTH NAVIGATION OUTREACH Action/ Letter received and sent to be mailed. Navigation Signature: Emelia Rush MA May 19, 2024 9:12 [facility]10-30-2024 NoteHNO ID: [id number] Author: MARIO RIBEIRO MA Service: ? Author Type: Vendor Management Associate Type: Progress Notes Filed: 05/18/2024 09:18 Note Text: POPULATION HEALTH NAVIGATION OUTREACH Action/I May 18, 2024 9:04 AM Jareth MIRANDAA ~VERONIKA with Jah Mas MD was October 30, 2023 Routine Medical Exam. Return in about 6 months (around 04/30/2024). Health Maintenance Due: Annual Medicare Wellness ( October 2024) Six month follow up Dilated Retinal Exam due on 11/18/2022 Colorectal Cancer Screening due on 06/19/2023 HbA1C due on 07/23/2023 Influenza Vaccine(1) due on 03/20/2024 BP Controlled (<130/80) due on 04/22/2024 Urine Albumin:Creatinine Ratio due on 04/22/2024 HCC related My chart NOT ACTIVATED Hemoglobin A1C (%) Date Value 10/29/2022 11.0 06/11/2019 11.3 Outcome: Attempted to reach patient to assist with scheduling. No answer, voicemail is full. No My chart as a second outreach. Letter has been printed and sent to [employer] to have mailed to patients home address, thank you Reason for Outreach Care Gap/HCC or Scheduling Wellness Visits Care Gaps due: Medicare Annual Wellness Visit Follow-up Appointment Controlling Blood Pressure Colorectal Cancer Screening Diabetic Eye Exam HBA1C KED Flu Vaccine Patient Contacted: Unable or unnecessary to reach patient: Left message Letter mailed HCC related Navigation Signature: Mario Ribeiro MA May 18, 2024 9:04 [facility]10-30-2024 History of Present illness Narrative* Mario Ribeiro MA - 05/18/2024 9:04 AM EDT POPULATION HEALTH NAVIGATION OUTREACH Action/FYI May 18, 2024 9:04 AM Jareth Mello PCSA ~VERONIKA with Jah Mas MD was October 30, 2023 Routine Medical Exam. Return in about 6 months (around 04/30/2024). Health Maintenance Due: Annual Medicare Wellness ( October 2024) Six month follow up Dilated Retinal Exam due on 11/18/2022 Colorectal Cancer Screening due on 06/19/2023 HbA1C due on 07/23/2023 Influenza Vaccine(1) due on 03/20/2024 BP Controlled (<130/80) due on 04/22/2024 Urine Albumin:Creatinine Ratio due on 04/22/2024 HCC related My chart NOT ACTIVATED Hemoglobin A1C (%) Date Value 10/29/2022 11.0 06/11/2019 11.3 Outcome: Attempted to reach patient to assist with scheduling. No answer, voicemail is full. No My chart as a second outreach. Letter has been printed and sent to [employer] to have mailed to patients home address, thank you Reason for Outreach Care Gap/HCC or Scheduling Wellness Visits Care Gaps due: Medicare Annual Wellness Visit Follow-up Appointment Controlling Blood Pressure Colorectal Cancer Screening Diabetic Eye Exam HBA1C KED Flu Vaccine Patient Contacted: Unable or unnecessary to reach patient: Left message Letter mailed HCC related Navigation Signature: Mario Ribeiro MA May 18, 2024 9:04 AM documented in this encounterMartin [facility] Hospital10-30-2024 NotePatient Outreach (NETNAV) TORI CANTOR ([id number]) 1975 M Date Time Provider Department 05/18/24 MARIO RIBEIRO During your visit today, we recorded the following information about you: Mario Ribeiro MA 05/18/2024 9:18 AM Signed POPULATION HEALTH NAVIGATION OUTREACH Action/FYI May 18, 2024 9:04 AM Jareth Mello PCSA ~VERONIKA with Jah Mas MD was October 30, 2023 Routine Medical Exam. Return in about 6 months (around 04/30/2024). Health Maintenance Due: Annual Medicare Wellness ( October 2024) Six month follow up Dilated Retinal Exam due on 11/18/2022 Colorectal Cancer Screening due on 06/19/2023 HbA1C due on 07/23/2023 Influenza Vaccine(1) due on 03/20/2024 BP Controlled (<130/80) due on 04/22/2024 Urine Albumin:Creatinine Ratio due on 04/22/2024 HCC related My chart NOT ACTIVATED Hemoglobin A1C (%) Date Value 10/29/2022 11.0 06/11/2019 11.3 Outcome: Attempted to reach patient to assist with scheduling. No answer, voicemail is full. No My chart as a second outreach. Letter has been printed and sent to [place] to have mailed to patients home address, thank you Reason for Outreach Care Gap/HCC or Scheduling Wellness Visits Care Gaps due: Medicare Annual Wellness Visit Follow-up Appointment Controlling Blood Pressure Colorectal Cancer Screening Diabetic Eye Exam HBA1C KED Flu Vaccine Patient Contacted: Unable or unnecessary to reach patient: Left message Letter mailed HCC related Navigation Signature: Mario Ribeiro MA May 18, 2024 9:04 AM Emelia Rush MA 05/19/2024 9:12 AM Signed POPULATION HEALTH NAVIGATION OUTREACH Action/FYI Letter received and sent to be mailed. Navigation Signature: Emelia Rush MA May 19, 2024 9:12 AM Allergies As of Date: 05/18/2024 (No Known Allergies) Date Reviewed: 10/30/2023 Reviewed by: Lori Corbin OCCA - Fully Assessed Reason for Visit: Population Health Navigation Outreach [3910] Cmt: Jareth Mello PCSA Prescriptions as of 05/19/2024 - pantoprazole DR (PROTONIX) 40 mg tablet take 1 tablet by mouth twice a day - gabapentin (NEURONTIN) 300 mg capsule Take 1 capsule by mouth four times daily for 180 days. - atorvastatin (LIPITOR) 40 mg tablet Take 1 tablet by mouth daily at bedtime. For cholesterol. - LANTUS SOLOSTAR U-100 INSULIN 100 unit/mL (3 mL) Inject 18 Units subcutaneously daily at bedtime. Per [facility]. - insulin lispro (HUMALOG KWIKPEN) 100 unit/mL Inject 6 Units subcutaneously three times a day with meals. Plus sliding scale. Per [facility]. - amLODIPine (NORVASC) 5 mg tablet Take 1 tablet by mouth once daily. - amitriptyline (ELAVIL) 25 mg tablet Take 1 tablet by mouth daily at bedtime. - levothyroxine (SYNTHROID) 25 mcg tablet Take 1 tablet by mouth every morning. - sertraline (ZOLOFT) 50 mg tablet Take 1 tablet by mouth once daily. - lisinopril (ZESTRIL) 40 mg tablet Take 1 tablet by mouth once daily. - albuterol HFA (PROVENTIL HFA, VENTOLIN HFA) 90 mcg/actuation inhaler Inhale 2 Puffs as instructed every 4 hours as needed for wheezing/shortness of breath. - Insulin [place], Disposable, (BD ULTRAFINE III MINI PEN) 31 gauge x 3/16 USE WITH INSULIN PENS 4TIMES DAILY - flash glucose sensor (FREESTYLE MAIKEL 2 SENSOR) kit Check 8 times per day Problem List As Of Date 05/18/2024 Noted Resolved Hypertension [I10] 11/23/2009 Abdominal pain, right lower quadrant [R10.31] 11/23/2009 01/25/2016 Abdominal pain, left lower quadrant [R10.32] 11/23/2009 01/25/2016 GERD (gastroesophageal reflux disease) [K21.9] 01/25/2016 Microalbuminuria [R80.9] 01/25/2016 History of diabetic gastroparesis [Z86.39] 01/25/2016 Diabetic polyneuropathy associated with type 1 *01/25/2016 Depression with anxiety [F41.8] 01/25/2016 Lactose intolerance [E73.9] 07/30/2016 02/14/2017 Charcot's joint of right foot [M14.671] 11/11/2016 Obesity [E66.9] 02/11/2017 04/05/2018 Hyperlipidemia [E78.5] 02/14/2017 Hep C w/o coma, chronic (HCC) [B18.2] 09/29/2018 10/30/2023 Moderate episode of recurrent major depressive *09/02/2018 09/29/2018 History of drug abuse in remission (HCC) [F19.1*09/29/2018 04/22/2023 IVDU (intravenous drug user) [F19.90] 05/27/2019 11/06/2021 Tobacco abuse [Z72.0] 05/27/2019 Nicotine use disorder, F17.2 [F17.200] 05/31/2019 02/05/2022 Sepsis (HCC) [A41.9] 06/09/2019 06/27/2021 Amputee, below knee, left ([facility]) [Z89.512] 07/14/2019 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)*11/06/2021 Hypothyroidism [E03.9] 11/06/2021 PVD (peripheral vascular disease) ([facility]) [I73.9] 01/10/2020 Moderate protein-calorie malnutrition (HCC) [E4*11/01/2021 11/12/2022 Non-healing wound of amputation stump ([facility]) [T8*09/24/2022 01/23/2023 Skin ulcers (HCC) [L98.499] 09/24/2022 01/24/20 (more content not included)... [facility]10-28-2024 NoteHNO ID: [id number] Author: ?, ?, ? Service: ? Author Type: ? Type: Progress Notes Filed: 05/16/2024 10:52 Note Text: Tori Cantor is identified through a medication adherence outreach initiative based on pharmacy claims data from [employer] (insurer) for [facility]RI[facility]IAN medication(s). Patient is reviewed 05/16/24 due to medication adherence concerns with the following medications (name, strength, sig): Lisinopril 40mg every day . Per data/report, last fill date and days supply: due 02/24/24 Per reconcile dispense, last fill date and days supply: filled 11/26/23 Contacted patient: No answer; left generic VM Outcome of review/outreach: (choose outcome source and status) - [facility] History of Present illness Narrative* Bonnie Baker - 05/16/2024 10:45 AM EDT Tori Cantor is identified through a medication adherence outreach initiative based on pharmacy claims data from [employer] (insurer) for CHRISTIAN medication(s). Patient is reviewed 05/16/24 due to medication adherence concerns with the following medications (name, strength, sig): Lisinopril 40mg every day . Per data/report, last fill date and days supply: due 02/24/24 Per reconcile dispense, last fill date and days supply: filled 11/26/23 Contacted patient: No answer; left generic VM Outcome of review/outreach: (choose outcome source and status) - LVM for PT Bonnieanthony Baker documented in this encounterMartin Memorial Hospital10-28-2024 NotePatient Outreach (PHPOHE) TORI CANTOR ([id number]) 1975 M Date Time Provider Department 05/16/24 [facility] During your visit today, we recorded the following information about you: Abelardo Bakerley 05/16/2024 10:52 AM Signed Tori Cantor is identified through a medication adherence outreach initiative based on pharmacy claims data from [employer] (insurer) for CHRISTIAN medication(s). Patient is reviewed 05/16/24 due to medication adherence concerns with the following medications (name, strength, sig): Lisinopril 40mg every day . Per data/report, last fill date and days supply: due 02/24/24 Per reconcile dispense, last fill date and days supply: filled 11/26/23 Contacted patient: No answer; left generic VM Outcome of review/outreach: (choose outcome source and status) - LVM for PT Bonnie Baker Allergies As of Date: 05/16/2024 (No Known Allergies) Date Reviewed: 10/30/2023 Reviewed by: Lori Corbin OCCA - Fully Assessed Reason for Visit: Allied Health Visit [5] Cmt: Medication Adherence Outreach Prescriptions as of 05/16/2024 - pantoprazole DR (PROTONIX) 40 mg tablet take 1 tablet by mouth twice a day - gabapentin (NEURONTIN) 300 mg capsule Take 1 capsule by mouth four times daily for 180 days. - atorvastatin (LIPITOR) 40 mg tablet Take 1 tablet by mouth daily at bedtime. For cholesterol. - LANTUS SOLOSTAR U-100 INSULIN 100 unit/mL (3 mL) Inject 18 Units subcutaneously daily at bedtime. Per [facility]. - insulin lispro (HUMALOG KWIKPEN) 100 unit/mL Inject 6 Units subcutaneously three times a day with meals. Plus sliding scale. Per [facility]. - amLODIPine (NORVASC) 5 mg tablet Take 1 tablet by mouth once daily. - amitriptyline (ELAVIL) 25 mg tablet Take 1 tablet by mouth daily at bedtime. - levothyroxine (SYNTHROID) 25 mcg tablet Take 1 tablet by mouth every morning. - sertraline (ZOLOFT) 50 mg tablet Take 1 tablet by mouth once daily. - lisinopril (ZESTRIL) 40 mg tablet Take 1 tablet by mouth once daily. - albuterol HFA (PROVENTIL HFA, VENTOLIN HFA) 90 mcg/actuation inhaler Inhale 2 Puffs as instructed every 4 hours as needed for wheezing/shortness of breath. - Insulin Dudley, Disposable, (BD ULTRAFINE III MINI PEN) 31 gauge x 3/16 USE WITH INSULIN PENS 4TIMES DAILY - flash glucose sensor (FREESTYLE MAIKEL 2 SENSOR) kit Check 8 times per day Problem List As Of Date 05/16/2024 Noted Resolved Hypertension [I10] 11/23/2009 Abdominal pain, right lower quadrant [R10.31] 11/23/2009 01/25/2016 Abdominal pain, left lower quadrant [R10.32] 11/23/2009 01/25/2016 GERD (gastroesophageal reflux disease) [K21.9] 01/25/2016 Microalbuminuria [R80.9] 01/25/2016 History of diabetic gastroparesis [Z86.39] 01/25/2016 Diabetic polyneuropathy associated with type 1 *01/25/2016 Depression with anxiety [F41.8] 01/25/2016 Lactose intolerance [E73.9] 07/30/2016 02/14/2017 Charcot's joint of right foot [M14.671] 11/11/2016 Obesity [E66.9] 02/11/2017 04/05/2018 Hyperlipidemia [E78.5] 02/14/2017 Hep C w/o coma, chronic (HCC) [B18.2] 09/29/2018 10/30/2023 Moderate episode of recurrent major depressive *09/02/2018 09/29/2018 History of drug abuse in remission (HCC) [F19.1*09/29/2018 04/22/2023 IVDU (intravenous drug user) [F19.90] 05/27/2019 11/06/2021 Tobacco abuse [Z72.0] 05/27/2019 Nicotine use disorder, F17.2 [F17.200] 05/31/2019 02/05/2022 Sepsis (HCC) [A41.9] 06/09/2019 06/27/2021 Amputee, below knee, left (HCC) [Z89.512] 07/14/2019 Osteomyelitis of left tibia/BKA with MRSA ([facility])*11/06/2021 Hypothyroidism [E03.9] 11/06/2021 PVD (peripheral vascular disease) (HCC) [I73.9] 01/10/2020 Moderate protein-calorie malnutrition (HCC) [E4*11/01/2021 11/12/2022 Non-healing wound of amputation stump (HCC) [T8*09/24/2022 01/23/2023 Skin ulcers (HCC) [L98.499] 09/24/2022 01/23/2023 Neurodermatitis [L28.0] 01/23/2023 Encounter Status:Closed by BONNIE BAKER on 05/16/24[facility] 04-28-2024 NoteHNO ID: [id number] Author: ?, ?, ? Service: ? Author Type: ? Type: Progress Notes Filed: 04/28/2024 13:18 Note Text: Tori Cantro is identified through a medication adherence outreach initiative based on pharmacy claims data from [employer] (insurer) for CHRISTIAN medication(s). Patient is reviewed 04/28/24 due to medication adherence concerns with the following medications (name, strength, sig): lisinopril 40mg, take 1 tablet daily. Per data/report, last fill date and days supply: due 02/24/24 Per reconcile dispense, last fill date and days supply: filled 11/26/23 for 90 days Per call to pharmacy, last picked up date and days supply: n/a Contacted patient: No answer; left generic VM Outcome of review/outreach: (choose outcome source and status) 2nd attempt Left [facility] of Present illness Narrative* Andrzej So - 04/28/2024 1:14 PM EDT Tori Cantor is identified through a medication adherence outreach initiative based on pharmacy claims data from [employer] (insurer) for CHRISTIAN medication(s). Patient is reviewed 04/28/24 due to medication adherence concerns with the following medications (name, strength, sig): lisinopril 40mg, take 1 tablet daily. Per data/report, last fill date and days supply: due 02/24/24 Per reconcile dispense, last fill date and days supply: filled 11/26/23 for 90 days Per call to pharmacy, last picked up date and days supply: n/a Contacted patient: No answer; left generic VM Outcome of review/outreach: (choose outcome source and status) 2nd attempt Left message Andrzej So documented in this encounterMartin [facility]10-10-[facility]24 NotePatient Outreach (PHPOHE) TORI CANTOR ([id number]) 1975 M Date Time Provider Department 04/28/24 JAH MAS PHPOHE During your visit today, we recorded the following information about you: Andrzej So 04/28/2024 1:18 PM Signed Tori Cantor is identified through a medication adherence outreach initiative based on pharmacy claims data from [employer] (insurer) for CHRISTIAN medication(s). Patient is reviewed 04/28/24 due to medication adherence concerns with the following medications (name, strength, sig): lisinopril 40mg, take 1 tablet daily. Per data/report, last fill date and days supply: due 02/24/24 Per reconcile dispense, last fill date and days supply: filled 11/26/23 for 90 days Per call to pharmacy, last picked up date and days supply: n/a Contacted patient: No answer; left generic VM Outcome of review/outreach: (choose outcome source and status) 2nd attempt Left message Andrzej So Allergies As of Date: 04/28/2024 (No Known Allergies) Date Reviewed: 10/30/2023 Reviewed by: Lori Corbin OCCA - Fully Assessed Reason for Visit: Allied Health Visit [5] Cmt: Medication Adherence Outreach Prescriptions as of 04/28/2024 - pantoprazole DR (PROTONIX) 40 mg tablet take 1 tablet by mouth twice a day - gabapentin (NEURONTIN) 300 mg capsule Take 1 capsule by mouth four times daily for 180 days. - atorvastatin (LIPITOR) 40 mg tablet Take 1 tablet by mouth daily at bedtime. For cholesterol. - LANTUS SOLOSTAR U-100 INSULIN 100 unit/mL (3 mL) Inject 18 Units subcutaneously daily at bedtime. Per [facility]. - insulin lispro (HUMALOG KWIKPEN) 100 unit/mL Inject 6 Units subcutaneously three times a day with meals. Plus sliding scale. Per [facility]. - amLODIPine (NORVASC) 5 mg tablet Take 1 tablet by mouth once daily. - amitriptyline (ELAVIL) 25 mg tablet Take 1 tablet by mouth daily at bedtime. - levothyroxine (SYNTHROID) 25 mcg tablet Take 1 tablet by mouth every morning. - sertraline (ZOLOFT) 50 mg tablet Take 1 tablet by mouth once daily. - lisinopril (ZESTRIL) 40 mg tablet Take 1 tablet by mouth once daily. - albuterol HFA (PROVENTIL HFA, VENTOLIN HFA) 90 mcg/actuation inhaler Inhale 2 Puffs as instructed every 4 hours as needed for wheezing/shortness of breath. - Insulin Dudley, Disposable, (BD ULTRAFINE III MINI PEN) 31 gauge x 3/16 USE WITH INSULIN PENS 4TIMES DAILY - flash glucose sensor (FREESTYLE MAIKEL 2 SENSOR) kit Check 8 times per day Problem List As Of Date 04/28/2024 Noted Resolved Hypertension [I10] 11/23/2009 Abdominal pain, right lower quadrant [R10.31] 11/23/2009 01/25/2016 Abdominal pain, left lower quadrant [R10.32] 11/23/2009 01/25/2016 GERD (gastroesophageal reflux disease) [K21.9] 01/25/2016 Microalbuminuria [R80.9] 01/25/2016 History of diabetic gastroparesis [Z86.39] 01/25/2016 Diabetic polyneuropathy associated with type 1 *01/25/2016 Depression with anxiety [F41.8] 01/25/2016 Lactose intolerance [E73.9] 07/30/2016 02/14/2017 Charcot's joint of right foot [M14.671] 11/11/2016 Obesity [E66.9] 02/11/2017 04/05/2018 Hyperlipidemia [E78.5] 02/14/2017 Hep C w/o coma, chronic (HCC) [B18.2] 09/29/2018 10/30/2023 Moderate episode of recurrent major depressive *09/02/2018 09/29/2018 History of drug abuse in remission (HCC) [F19.1*09/29/2018 04/22/2023 IVDU (intravenous drug user) [F19.90] 05/27/2019 11/06/2021 Tobacco abuse [Z72.0] 05/27/2019 Nicotine use disorder, F17.2 [F17.200] 05/31/2019 02/05/2022 Sepsis (HCC) [A41.9] 06/09/2019 06/27/2021 Amputee, below knee, left (HCC) [Z89.512] 07/14/2019 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)*11/06/2021 Hypothyroidism [E03.9] 11/06/2021 PVD (peripheral vascular disease) (HCC) [I73.9] 01/10/2020 Moderate protein-calorie malnutrition (HCC) [E4*11/01/2021 11/12/2022 Non-healing wound of amputation stump (HCC) [T8*09/24/2022 01/23/2023 Skin ulcers (HCC) [L98.499] 09/24/2022 01/23/2023 Neurodermatitis [L28.0] 01/23/2023 Encounter Status:Closed by ANDRZEJ SO on 04/28/24[facility] 04-18-2024 Miscellaneous Notes* Telephone Encounter - Brian Rousseau MA - 04/18/2024 11:53 AM EDT Prescription Refill Information The patient has been identified by name and date of : Yes Caregiver verified no other encounters exist for this prescription request: Yes Caregiver confirmed with patient/requestor that no other refills are due, in the near future, with this provider at this time: Yes The last office visit in the department: 10/30/2023 Does the patient have a future office visit with this provider/department: Yes Requested Prescriptions Pending Prescriptions Disp Refills pantoprazole DR (PROTONIX) 40 mg tablet [Pharmacy Med Name: PANTOPRAZOLE SOD DR 40 MG TAB] 180 tablet 1 Sig: take 1 tablet by mouth twice a day Brian Rousseau MA April 18, 2024 11:53 AM documented in this encounterMartin [facility] Hospital09-30-2024 Telephone encounter Note * Telephone Encounter - Brian Rousseau MA - 04/18/2024 11:53 AM EDT Prescription Refill Information The patient has been identified by name and date of : Yes Caregiver verified no other encounters exist for this prescription request: Yes Caregiver confirmed with patient/requestor that no other refills are due, in the near future, with this provider at this time: Yes The last office visit in the department: 10/30/2023 Does the patient have a future office visit with this provider/department: Yes Requested Prescriptions Pending Prescriptions Disp Refills pantoprazole DR (PROTONIX) 40 mg tablet [Pharmacy Med Name: PANTOPRAZOLE SOD DR 40 MG TAB] 180 tablet 1 Sig: take 1 tablet by mouth twice a day Brian Rousseau MA April 18, 2024 11:53 AM [facility]09-[facility]24 NoteHNO ID: [id number] Author: ?, ?, ? Service: ? Author Type: ? Type: Progress Notes Filed: 04/12/2024 12:23 Note Text: Tori Cantor is identified through a medication adherence outreach initiative based on pharmacy claims data from [employer] (insurer) for CHRISTIAN medication(s). Patient is reviewed 04/12/24 due to medication adherence concerns with the following medications (name, strength, sig): lisinopril 40mg every day . Per data/report, last fill date and days supply: due 02/24/24 Per reconcile dispense, last fill date and days supply: filled 11/26/23 for 90 days Contacted patient: No answer; left generic VM Outcome of review/outreach: (choose outcome source and status) - [facility] History of Present illness Narrative* Bonnie Baker - 04/12/2024 12:21 PM EDT Tori Cantor is identified through a medication adherence outreach initiative based on pharmacy claims data from [employer] (insurer) for CHRISTIAN medication(s). Patient is reviewed 04/12/24 due to medication adherence concerns with the following medications (name, strength, sig): lisinopril 40mg every day . Per data/report, last fill date and days supply: due 02/24/24 Per reconcile dispense, last fill date and days supply: filled 11/26/23 for 90 days Contacted patient: No answer; left generic VM Outcome of review/outreach: (choose outcome source and status) - LVM for PT Bonnie Baker documented in this encounterMartin [facility] Hospital09-24-2024 NotePatient Outreach (PHPOHE) TORI CANTOR ([id number]) 1975 M Date Time Provider Department 04/12/24 JAH MAS PHPOHE During your visit today, we recorded the following information about you: Bonnie Baker 04/12/2024 12:23 PM Signed Tori Cantor is identified through a medication adherence outreach initiative based on pharmacy claims data from [employer] (insurer) for CHRISTIAN medication(s). Patient is reviewed 04/12/24 due to medication adherence concerns with the following medications (name, strength, sig): lisinopril 40mg every day . Per data/report, last fill date and days supply: due 02/24/24 Per reconcile dispense, last fill date and days supply: filled 11/26/23 for 90 days Contacted patient: No answer; left generic VM Outcome of review/outreach: (choose outcome source and status) - LVM for PT Bonnie Baker Allergies As of Date: 04/12/2024 (No Known Allergies) Date Reviewed: 10/30/2023 Reviewed by: Strait, Lori, OCCA - Fully Assessed Reason for Visit: Allied Health Visit [5] Cmt: Medication Adherence Outreach Prescriptions as of 04/12/2024 - pantoprazole DR (PROTONIX) 40 mg tablet Take 1 tablet by mouth two times a day. - gabapentin (NEURONTIN) 300 mg capsule Take 1 capsule by mouth four times daily for 180 days. - atorvastatin (LIPITOR) 40 mg tablet Take 1 tablet by mouth daily at bedtime. For cholesterol. - LANTUS SOLOSTAR U-100 INSULIN 100 unit/mL (3 mL) Inject 18 Units subcutaneously daily at bedtime. Per [facility]. - insulin lispro (HUMALOG KWIKPEN) 100 unit/mL Inject 6 Units subcutaneously three times a day with meals. Plus sliding scale. Per [facility]. - amLODIPine (NORVASC) 5 mg tablet Take 1 tablet by mouth once daily. - amitriptyline (ELAVIL) 25 mg tablet Take 1 tablet by mouth daily at bedtime. - levothyroxine (SYNTHROID) 25 mcg tablet Take 1 tablet by mouth every morning. - sertraline (ZOLOFT) 50 mg tablet Take 1 tablet by mouth once daily. - lisinopril (ZESTRIL) 40 mg tablet Take 1 tablet by mouth once daily. - albuterol HFA (PROVENTIL HFA, VENTOLIN HFA) 90 mcg/actuation inhaler Inhale 2 Puffs as instructed every 4 hours as needed for wheezing/shortness of breath. - Insulin Dudley, Disposable, (BD ULTRAFINE III MINI PEN) 31 gauge x 3/16 USE WITH INSULIN PENS 4TIMES DAILY - flash glucose sensor (FREESTYLE MAIKEL 2 SENSOR) kit Check 8 times per day Problem List As Of Date 04/12/2024 Noted Resolved Hypertension [I10] 11/23/2009 Abdominal pain, right lower quadrant [R10.31] 11/23/2009 01/25/2016 Abdominal pain, left lower quadrant [R10.32] 11/23/2009 01/25/2016 GERD (gastroesophageal reflux disease) [K21.9] 01/25/2016 Microalbuminuria [R80.9] 01/25/2016 History of diabetic gastroparesis [Z86.39] 01/25/2016 Diabetic polyneuropathy associated with type 1 *01/25/2016 Depression with anxiety [F41.8] 01/25/2016 Lactose intolerance [E73.9] 07/30/2016 02/14/2017 Charcot's joint of right foot [M14.671] 11/11/2016 Obesity [E66.9] 02/11/2017 04/05/2018 Hyperlipidemia [E78.5] 02/14/2017 Hep C w/o coma, chronic (HCC) [B18.2] 09/29/2018 10/30/2023 Moderate episode of recurrent major depressive *09/02/2018 09/29/2018 History of drug abuse in remission (HCC) [F19.1*09/29/2018 04/22/2023 IVDU (intravenous drug user) [F19.90] 05/27/2019 11/06/2021 Tobacco abuse [Z72.0] 05/27/2019 Nicotine use disorder, F17.2 [F17.200] 05/31/2019 02/05/2022 Sepsis (HCC) [A41.9] 06/09/2019 06/27/2021 Amputee, below knee, left (HCC) [Z89.512] 07/14/2019 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)*11/06/2021 Hypothyroidism [E03.9] 11/06/2021 PVD (peripheral vascular disease) (HCC) [I73.9] 01/10/2020 Moderate protein-calorie malnutrition (HCC) [E4*11/01/2021 11/12/2022 Non-healing wound of amputation stump (HCC) [T8*09/24/2022 01/23/2023 Skin ulcers (HCC) [L98.499] 09/24/2022 01/23/2023 Neurodermatitis [L28.0] 01/23/2023 Encounter Status:Closed by BONNIE BAKER on 04/12/24[facility] 03-24-2024 Telephone encounter Note* Telephone Encounter - Di Mccarty LPN - 03/24/2024 12:16 PM EDT Spoke with pt and information listed below given. Pt verbalizes understanding. Di Mccarty LPN [facility]09-05-[facility] Miscellaneous Notes* Telephone Encounter - Di Mccarty LPN - 03/24/2024 12:16 PM EDT Spoke with pt and information listed below given. Pt verbalizes understanding. Di Mccarty LPN * Telephone Encounter - Brian Rousseau MA - 03/24/2024 10:54 AM EDT Left message to call office. 03/24/2024 10:54 AM * Telephone Encounter - Margarita Licona APRN.RETAINING ROOM CUTTER - 03/24/2024 7:05 AM EDT Okay to increase Protonix Margarita Licona APRN.RETAINING ROOM CUTTER * Telephone Encounter - Juju Cristina - 03/23/2024 1:52 PM EDT Tori is calling Jah Mas MD today. Patients ENT specialist is recommending he take two tablets of the 40 mg pantoprazole. Patient wanted to get the okay from his PCP office before increase medication to 80 mg Please advise documented in this encounterMartin [facility] Hospital09-05-2024 Telephone encounter Note * Telephone Encounter - Brian Rousseau MA - 03/24/2024 10:54 AM EDT Left message to call office. 03/24/2024 10:54 AM [facility] Telephone encounter Note* Telephone Encounter - Margarita Licona APRN.RETAINING ROOM CUTTER - 03/24/2024 7:05 AM EDT Okay to increase Protonix Margarita Licona APRN.MARTHA [facility]09-04-2024 Telephone encounter Note* Telephone Encounter - Juju Cristina - 03/23/2024 1:52 PM EDT Tori is calling Jah Mas MD today. Patients ENT specialist is recommending he take two tablets of the 40 mg pantoprazole. Patient wanted to get the okay from his PCP office before increase medication to 80 mg Please advise [facility]-04-[facility] Telephone encounter Note* Telephone Encounter - Juju Cristina - 03/23/2024 1:48 PM EDT Prescription Refill Information The patient has been identified by name and date of : Yes Caregiver verified no other encounters exist for this prescription request: Yes Caregiver confirmed with patient/requestor that no other refills are due, in the near future, with this provider at this time: Yes The last office visit in the department: 10/30/2023 Does the patient have a future office visit with this provider/department: Yes Requested Prescriptions Pending Prescriptions Disp Refills gabapentin (NEURONTIN) 300 mg capsule 360 capsule 1 Sig: Take 1 capsule by mouth four times daily for 180 days. atorvastatin (LIPITOR) 40 mg tablet 90 tablet 1 Sig: Take 1 tablet by mouth daily at bedtime. For cholesterol. Juju Cristina March 23, 2024 1:51 PM [facility] Miscellaneous Notes* Telephone Encounter - Juju Cristina - 03/23/2024 1:48 PM EDT Prescription Refill Information The patient has been identified by name and date of : Yes Caregiver verified no other encounters exist for this prescription request: Yes Caregiver confirmed with patient/requestor that no other refills are due, in the near future, with this provider at this time: Yes The last office visit in the department: 10/30/2023 Does the patient have a future office visit with this provider/department: Yes Requested Prescriptions Pending Prescriptions Disp Refills gabapentin (NEURONTIN) 300 mg capsule 360 capsule 1 Sig: Take 1 capsule by mouth four times daily for 180 days. atorvastatin (LIPITOR) 40 mg tablet 90 tablet 1 Sig: Take 1 tablet by mouth daily at bedtime. For cholesterol. Juju Cristina March 23, 2024 1:51 PM documented in this encounterMartin [facility] Hospital08-14-2024 Telephone encounter Note * Telephone Encounter - Fan Rasmussen LPN - 03/02/2024 10:17 AM EDT Office does not keep Health Care Assessment from Insurance company, it is the insurance company's recommendation not the PCP. Fan Rasmussen LPN [facility] Miscellaneous Notes* Telephone Encounter - Fan Rasmussen LPN - 03/02/2024 10:17 AM EDT Office does not keep Health Care Assessment from Insurance company, it is the insurance company's recommendation not the PCP. Fan Rasmussen LPN * Telephone Encounter - Jah Mas MD - 02/24/2024 1:19 PM EDT Request report. I do not do portal. * Telephone Encounter - Siobhan Farmer LPN - 02/23/2024 4:13 PM EDT Archana calling from [employer] to report pt has completed his health care assessment & provider can review this at the provider's portal or can all client services at [phone]. Siobhan Farmer LPN documented in this encounterMartin Memorial Hospital08-07-2024 Telephone encounter Note * Telephone Encounter - Jah Mas MD - 02/24/2024 1:19 PM EDT Request report. I do not do portal. [facility] Telephone encounter Note* Telephone Encounter - Siobhan Farmer LPN - 02/23/2024 4:13 PM EDT Archana calling from [employer] to report pt has completed his health care assessment & provider can review this at the provider's portal or can all client services at [phone]. Siobhan Farmer LPN [facility]07-30-2024 NoteHNO ID: [id number] Author: BRIAN ROUSSEAU MA Service: ? Author Type: Vendor Management Associate Type: Progress Notes Filed: 02/16/2024 09:43 Note Text: POPULATION HEALTH NAVIGATION OUTREACH Action/ 6 month follow up scheduled in April has been adjustment to Medicare Wellness Exam. TC to pt to advise - unable to reach. No changes to date or time of appt. Reason for Outreach Care Gap/HCC or Scheduling Wellness Visits Care Gaps due: Medicare Annual Wellness Visit Patient Contacted: Unable or unnecessary to reach patient: Updated appointment notes Navigation Signature: Brain Rousseau MA February 16, 2024 9:42 [facility]07-30-2024 History of Present illness Narrative* Brian Rousseau MA - 02/16/2024 9:37 AM EDT POPULATION HEALTH NAVIGATION OUTREACH Action/ 6 month follow up scheduled in April has been adjustment to Medicare Wellness Exam. TC to pt to advise - unable to reach. No changes to date or time of appt. Reason for Outreach Care Gap/HCC or Scheduling Wellness Visits Care Gaps due: Medicare Annual Wellness Visit Patient Contacted: Unable or unnecessary to reach patient: Updated appointment notes Navigation Signature: Brian Rousseau MA February 16, 2024 9:42 AM documented in this encounterMartin Memorial Hospital07-30-2024 NotePatient Outreach (INTMWS) TORI CANTOR ([id number]) 1975 M Date Time Provider Department 02/16/24 BRIAN ROUSSEAU INTRosemarieWS During your visit today, we recorded the following information about you: Brian Rousseau MA 02/16/2024 9:43 AM Signed POPULATION HEALTH NAVIGATION OUTREACH Action/FYI 6 month follow up scheduled in April has been adjustment to Medicare Wellness Exam. TC to pt to advise - unable to reach. No changes to date or time of appt. Reason for Outreach Care Gap/HCC or Scheduling Wellness Visits Care Gaps due: Medicare Annual Wellness Visit Patient Contacted: Unable or unnecessary to reach patient: Updated appointment notes Navigation Signature: Brian Rousseau MA February 16, 2024 9:42 AM Allergies As of Date: 02/16/2024 (No Known Allergies) Date Reviewed: 10/30/2023 Reviewed by: Lori Corbin OCCA - Fully Assessed Reason for Visit: Appointment [186] Prescriptions as of 02/16/2024 - LANTUS SOLOSTAR U-100 INSULIN 100 unit/mL (3 mL) Inject 18 Units subcutaneously daily at bedtime. Per [facility]. - insulin lispro (HUMALOG KWIKPEN) 100 unit/mL Inject 6 Units subcutaneously three times a day with meals. Plus sliding scale. Per [facility]. - gabapentin (NEURONTIN) 300 mg capsule Take 1 capsule by mouth four times daily for 180 days. - atorvastatin (LIPITOR) 40 mg tablet Take 1 tablet by mouth daily at bedtime. For cholesterol. - amLODIPine (NORVASC) 5 mg tablet Take 1 tablet by mouth once daily. - amitriptyline (ELAVIL) 25 mg tablet Take 1 tablet by mouth daily at bedtime. - levothyroxine (SYNTHROID) 25 mcg tablet Take 1 tablet by mouth every morning. - pantoprazole DR (PROTONIX) 40 mg tablet Take 1 tablet by mouth once daily. - sertraline (ZOLOFT) 50 mg tablet Take 1 tablet by mouth once daily. - lisinopril (ZESTRIL) 40 mg tablet Take 1 tablet by mouth once daily. - albuterol HFA (PROVENTIL HFA, VENTOLIN HFA) 90 mcg/actuation inhaler Inhale 2 Puffs as instructed every 4 hours as needed for wheezing/shortness of breath. - Insulin Dudley, Disposable, (BD ULTRAFINE III MINI PEN) 31 gauge x 3/16 USE WITH INSULIN PENS 4TIMES DAILY - flash glucose sensor (FREESTYLE MAIKEL 2 SENSOR) kit Check 8 times per day Problem List As Of Date 02/16/2024 Noted Resolved Hypertension [I10] 11/23/2009 Abdominal pain, right lower quadrant [R10.31] 11/23/2009 01/25/2016 Abdominal pain, left lower quadrant [R10.32] 11/23/2009 01/25/2016 GERD (gastroesophageal reflux disease) [K21.9] 01/25/2016 Microalbuminuria [R80.9] 01/25/2016 History of diabetic gastroparesis [Z86.39] 01/25/2016 Diabetic polyneuropathy associated with type 1 *01/25/2016 Depression with anxiety [F41.8] 01/25/2016 Lactose intolerance [E73.9] 07/30/2016 02/14/2017 Charcot's joint of right foot [M14.671] 11/11/2016 Obesity [E66.9] 02/11/2017 04/05/2018 Hyperlipidemia [E78.5] 02/14/2017 Hep C w/o coma, chronic (HCC) [B18.2] 09/29/2018 10/30/2023 Moderate episode of recurrent major depressive *09/02/2018 09/29/2018 History of drug abuse in remission (HCC) [F19.1*09/29/2018 04/22/2023 IVDU (intravenous drug user) [F19.90] 05/27/2019 11/06/2021 Tobacco abuse [Z72.0] 05/27/2019 Nicotine use disorder, F17.2 [F17.200] 05/31/2019 02/05/2022 Sepsis (HCC) [A41.9] 06/09/2019 06/27/2021 Amputee, below knee, left (HCC) [Z89.512] 07/14/2019 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)*11/06/2021 Hypothyroidism [E03.9] 11/06/2021 PVD (peripheral vascular disease) (HCC) [I73.9] 01/10/2020 Moderate protein-calorie malnutrition (HCC) [E4*11/01/2021 11/12/2022 Non-healing wound of amputation stump (HCC) [T8*09/24/2022 01/23/2023 Skin ulcers (HCC) [L98.499] 09/24/2022 01/23/2023 Neurodermatitis [L28.0] 01/23/2023 Encounter Status:Closed by BRIAN ROUSSEAU on 02/16/24[facility] 02-15-2024 NoteHNO ID: [id number] Author: SONAM EVANS MA Service: ? Author Type: Vendor Management Associate Type: Progress Notes Filed: 02/15/2024 14:37 Note Text: POPULATION HEALTH NAVIGATION OUTREACH Action/FYI Patient returned call and had lab work last week including hemoglobin a1c Reason for Outreach Returned Call/MyChart Patient Contacted: Spoke to patient/parent/or legal guardian Patient identified by name and date of : Yes Returned call/MyChart actions taken: No action required Navigation Signature: Sonam Evans MA February 15, 2024 2:36 [facility]07-25-2024 NoteHNO ID: [id number] Author: SONAM EVANS MA Service: ? Author Type: Vendor Management Associate Type: Progress Notes Filed: 02/11/2024 08:51 Note Text: POPULATION HEALTH NAVIGATION OUTREACH Action/FYI Contacted patient to schedule care gaps and HCCs due. Colonoscopy referral in place for outside physician. Dilated retinal exam to be scheduled t [facility]. 1st attempt: Left message with my direct number Reason for Outreach Care Gap/HCC or Scheduling Wellness Visits Care Gaps due: Colorectal Cancer Screening Diabetic Eye Exam HBA1C Patient Contacted: Unable or unnecessary to reach patient: Left message HCC related Navigation Signature: Sonam Evans MA February 11, 2024 8:49 [facility]07-25-2024 History of Present illness Narrative* Sonam Evans MA - 02/11/2024 8:49 AM EDT POPULATION HEALTH NAVIGATION OUTREACH Action/FYI Contacted patient to schedule care gaps and HCCs due. Colonoscopy referral in place for outside physician. Dilated retinal exam to be scheduled t [facility]. 1st attempt: Left message with my direct number Reason for Outreach Care Gap/HCC or Scheduling Wellness Visits Care Gaps due: Colorectal Cancer Screening Diabetic Eye Exam HBA1C Patient Contacted: Unable or unnecessary to reach patient: Left message HCC related Navigation Signature: Sonam Evans MA February 11, 2024 8:49 AM documented in this encounterMartin [facility] Hospital07-25-2024 NotePatient Outreach (NETNAV) TORI CANTOR ([id number]) 1975 M Date Time Provider Department 02/11/24 SONAM EVANS During your visit today, we recorded the following information about you: Sonam Evans MA 02/11/2024 8:51 AM Signed POPULATION HEALTH NAVIGATION OUTREACH Action/FYI Contacted patient to schedule care gaps and HCCs due. Colonoscopy referral in place for outside physician. Dilated retinal exam to be scheduled t [facility]. 1st attempt: Left message with my direct number Reason for Outreach Care Gap/HCC or Scheduling Wellness Visits Care Gaps due: Colorectal Cancer Screening Diabetic Eye Exam HBA1C Patient Contacted: Unable or unnecessary to reach patient: Left message HCC related Navigation Signature: Sonam Evans MA February 11, 2024 8:49 AM Sonam Evans MA 02/15/2024 2:37 PM Signed POPULATION HEALTH NAVIGATION OUTREACH Action/FYI Patient returned call and had lab work last week including hemoglobin a1c Reason for Outreach Returned Call/MyChart Patient Contacted: Spoke to patient/parent/or legal guardian Patient identified by name and date of : Yes Returned call/MyChart actions taken: No action required Navigation Signature: Sonam Evans MA February 15, 2024 2:36 PM Allergies As of Date: 02/11/2024 (No Known Allergies) Date Reviewed: 10/30/2023 Reviewed by: Lori Corbin OCCA - Fully Assessed Reason for Visit: Population Health Navigation Outreach [3910] Cmt: Jareth LUA/NADJA and care gaps Prescriptions as of 02/15/2024 - LANTUS SOLOSTAR U-100 INSULIN 100 unit/mL (3 mL) Inject 18 Units subcutaneously daily at bedtime. Per [facility]. - insulin lispro (HUMALOG KWIKPEN) 100 unit/mL Inject 6 Units subcutaneously three times a day with meals. Plus sliding scale. Per [facility]. - gabapentin (NEURONTIN) 300 mg capsule Take 1 capsule by mouth four times daily for 180 days. - atorvastatin (LIPITOR) 40 mg tablet Take 1 tablet by mouth daily at bedtime. For cholesterol. - amLODIPine (NORVASC) 5 mg tablet Take 1 tablet by mouth once daily. - amitriptyline (ELAVIL) 25 mg tablet Take 1 tablet by mouth daily at bedtime. - levothyroxine (SYNTHROID) 25 mcg tablet Take 1 tablet by mouth every morning. - pantoprazole DR (PROTONIX) 40 mg tablet Take 1 tablet by mouth once daily. - sertraline (ZOLOFT) 50 mg tablet Take 1 tablet by mouth once daily. - lisinopril (ZESTRIL) 40 mg tablet Take 1 tablet by mouth once daily. - albuterol HFA (PROVENTIL HFA, VENTOLIN HFA) 90 mcg/actuation inhaler Inhale 2 Puffs as instructed every 4 hours as needed for wheezing/shortness of breath. - Insulin Dudley, Disposable, (BD ULTRAFINE III MINI PEN) 31 gauge x 3/16 USE WITH INSULIN PENS 4TIMES DAILY - flash glucose sensor (FREESTYLE MAIKEL 2 SENSOR) kit Check 8 times per day Problem List As Of Date 02/11/2024 Noted Resolved Hypertension [I10] 11/23/2009 Abdominal pain, right lower quadrant [R10.31] 11/23/2009 01/25/2016 Abdominal pain, left lower quadrant [R10.32] 11/23/2009 01/25/2016 GERD (gastroesophageal reflux disease) [K21.9] 01/25/2016 Microalbuminuria [R80.9] 01/25/2016 History of diabetic gastroparesis [Z86.39] 01/25/2016 Diabetic polyneuropathy associated with type 1 *01/25/2016 Depression with anxiety [F41.8] 01/25/2016 Lactose intolerance [E73.9] 07/30/2016 02/14/2017 Charcot's joint of right foot [M14.671] 11/11/2016 Obesity [E66.9] 02/11/2017 04/05/2018 Hyperlipidemia [E78.5] 02/14/2017 Hep C w/o coma, chronic (HCC) [B18.2] 09/29/2018 10/30/2023 Moderate episode of recurrent major depressive *09/02/2018 09/29/2018 History of drug abuse in remission (HCC) [F19.1*09/29/2018 04/22/2023 IVDU (intravenous drug user) [F19.90] 05/27/2019 11/06/2021 Tobacco abuse [Z72.0] 05/27/2019 Nicotine use disorder, F17.2 [F17.200] 05/31/2019 02/05/2022 Sepsis (HCC) [A41.9] 06/09/2019 06/27/2021 Amputee, below knee, left (HCC) [Z89.512] 07/14/2019 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)*11/06/2021 Hypothyroidism [E03.9] 11/06/2021 PVD (peripheral vascular disease) (HCC) [I73.9] 01/10/2020 Moderate protein-calorie malnutrition (HCC) [E4*11/01/2021 11/12/2022 Non-healing wound of amputation stump (HCC) [T8*09/24/2022 01/23/2023 Skin ulcers (HCC) [L98.499] 09/24/2022 01/23/2023 Neurodermatitis [L28.0] 01/23/2023 Encounter Status:Closed by SONAM EVANS on 02/11/24[facility] 01-06-2024 Telephone encounter Note* Telephone Encounter - Zoe Castaneda LPN - 01/06/2024 8:42 AM EDT This was completed and faxed back 01/05/24. [facility]06-[facility] Miscellaneous Notes* Telephone Encounter - Zoe Castaneda LPN - 01/06/2024 8:42 AM EDT This was completed and faxed back 01/05/24. * Telephone Encounter - Zoe Castaneda LPN - 12/28/2023 3:57 PM EDT Fax rec'd from [facility] for booster supplement. Called pt to see if still taking this. He says yes he uses this one twice a day. He has issues with eating (he doesn't have any teeth). Sometimes he has trouble keeping his blood sugars in range. The ibanez helps with this. Form back to pcp to review and complete when he returns next week. documented in this encounterMartin [facility] Hospital06-10-2024 Telephone encounter Note * Telephone Encounter - Zoe Castaneda LPN - 12/28/2023 3:57 PM EDT Fax rec'd from [facility] for booster supplement. Called pt to see if still taking this. He says yes he uses this one twice a day. He has issues with eating (he doesn't have any teeth). Sometimes he has trouble keeping his blood sugars in range. The ibanez helps with this. Form back to pcp to review and complete when he returns next week. [facility] Telephone encounter Note* Telephone Encounter - Katia Willard MA - 12/25/2023 2:36 PM EDT Patient notified and mailed to home address. [facility] Miscellaneous Notes* Telephone Encounter - Katia Willard MA - 12/25/2023 2:36 PM EDT Patient notified and mailed to home address. * Telephone Encounter - Katia Willard MA - 12/25/2023 11:18 AM EDT Letter printed, awaiting signature. * Telephone Encounter - Sivan Matos - 12/25/2023 10:53 AM EDT Tori is calling Jah Mas MD today with concern regarding Forms/letter Handmaynor tena LOST last letter and needs a new one. If you can please call him when it is ready and he will chart picker next week. Patient has been identified by name and birthdate. Duration of symptoms: N/A Person calling: self Call patient at: at home [phone] (home) [phone] (cell) Was an appointment scheduled: No Closing statement: Results or non-symptom based questions: Thank you for calling [facility], your call will be returned within the next business day. Sivan Jimenez documented in this encounterMartin [facility] Hospital06-07-2024 Telephone encounter Note * Telephone Encounter - Katia Willard MA - 12/25/2023 11:18 AM EDT Letter printed, awaiting signature. [facility] Telephone encounter Note* Telephone Encounter - Sivan Matos - 12/25/2023 10:53 AM EDT Tori is calling Jah Mas MD today with concern regarding Forms/letter Jakob tena LOST last letter and needs a new one. If you can please call him when it is ready and he will chart picker next week. Patient has been identified by name and birthdate. Duration of symptoms: N/A Person calling: self Call patient at: at home [phone] (home) [phone] (cell) Was an appointment scheduled: No Closing statement: Results or non-symptom based questions: Thank you for calling [facility], your call will be returned within the next business day. Sivan Jimenez [facility]04-12-2024 Instructions* Patient Instructions* Jah Mas MD - 10/30/2023 3:[address] PATINO FOR EYE EXAM. documented in this encounterMartin Memorial Hospital04-12-2024 History of Present illness Narrative* Jah Mas MD - 10/30/2023 3:38 PM EDT This note was created using [employer]. Subjective Patient presents with: Yearly Exam: Request for Handicap edavenu Cantor is a 48 year old male. His diabetes mellitus was managed by Dr. Brian Naik, [facility]. He sees Dr. Aldo Patino for ophthalmology. He was referred to Dr. Terrazas for follow up colonoscopy in July, but apparently has not heard anything. He requested another referral and will call me if this does not get scheduled in the next few months. He's had a persistent sore and burning throat for 3 months or more. He denied hemoptysis. Review of Systems Constitutional: Negative for appetite change, fatigue, fever and unexpected weight change. HENT: Positive for sore throat and trouble swallowing. Negative for congestion and nosebleeds. Eyes: Negative for visual disturbance. Respiratory: Negative for cough and shortness of breath. Cardiovascular: Negative for chest pain, palpitations and leg swelling. Gastrointestinal: Negative for constipation, diarrhea, nausea and vomiting. Genitourinary: Negative for difficulty urinating and dysuria. PAST MEDICAL HISTORY Diagnosis Date Cellulitis of left lower extremity 07/20/2019 Charcot's joint of right foot 11/11/2016 Chronic bilateral low back pain without sciatica Closed trimalleolar fracture of left ankle 05/23/2019 Depression with anxiety 01/25/2016 Diabetic polyneuropathy associated with type 1 diabetes mellitus ([facility]) 01/25/2016 Cris on disability. Dx 10 y.o. DKA (diabetic ketoacidosis) ([facility]) 08/2014, 10/2017 GERD (gastroesophageal reflux disease) 01/25/2016 Hep C w/o coma, chronic ([facility]) 09/29/2018 Epclusa x 12 weeks to 2021 History of drug abuse in remission ([facility]) 09/29/2018 History of ischemic colitis 03/14/2016 History of left below knee amputation ([facility]) 07/14/2019 Hyperlipidemia 02/14/2017 Hypertension Hypothyroidism 11/06/2021 IVDU (intravenous drug user) 05/27/2019 Lactose intolerance 07/30/2016 Moderate protein-calorie malnutrition ([facility]) 11/01/2021 Neurodermatitis 01/23/2023 Non-healing wound of amputation stump ([facility]) 09/24/2022 Osteomyelitis of left tibia/BKA with MRSA ([facility]) 11/06/2021 Pancreatitis 08/2014 Perianal abscess 08/03/2018 PVD (peripheral vascular disease) ([facility]) 01/10/2020 Tobacco abuse 05/27/2019 PAST SURGICAL HISTORY Procedure Laterality Date AMPUTATION LOW LEG THRU TIB/FIB Left 06/24/2019 Left BKA COLONOSCOPY 03/17/2016 resolved colitis, presumed ischemic COLONOSCOPY SCREENING 06/19/2022 poor prep. Repeat in 11/2022 recommended. EGD 11/02/2017 2014 IR VASCULAR ACCESS TEAM PICC INSERTION RADIO 06/17/2019 REVISION OF LOWER LEG Left 07/06/2020 I&D, revision of BKA stump REVISION OF LOWER LEG Left 09/19/2021 I&D stump REVISION OF LOWER LEG Left 01/27/2020 I&D stump FAMILY HISTORY Problem Relation Age of Onset Hypertension Mother Diabetes Mother Stroke Mother Heart Mother CHF Cataract Mother Hypertension Father COPD Father Emphysema Father Social History Tobacco Use Smoking status: Every Day Packs/day: 1.00 Years: 35.00 Additional pack years: 0.00 Total pack years: 35.00 Types: Cigarettes Smokeless tobacco: Never Vaping Use Vaping Use: Never used Substance Use Topics Alcohol use: Not Currently Drug use: Yes Frequency: 14.0 times per week Types: Marijuana Comment: currently smokes marijuana 2 times a day. 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 ALLERGIES No Known Allergies Current Outpatient Medications Medication Sig gabapentin (NEURONTIN) 300 mg capsule Take 1 capsule by mouth four times daily for 180 days. atorvastatin (LIPITOR) 40 mg tablet Take 1 tablet by mouth daily at bedtime. For cholesterol. amLODIPine (NORVASC) 5 mg tablet Take 1 tablet by mouth once daily. amitriptyline (ELAVIL) 25 mg tablet Take 1 tablet by mouth daily at bedtime. levothyroxine (SYNTHROID) 25 mcg tablet Take 1 tablet by mouth every morning. pantoprazole DR (PROTONIX) 40 mg tablet Take 1 tablet by mouth once daily. sertraline (ZOLOFT) 50 mg tablet Take 1 tablet by mouth once daily. lisinopril (ZESTRIL) 40 mg tablet Take 1 tablet by mouth once daily. albuterol HFA (PROVENTIL HFA, VENTOLIN HFA) 90 mcg/actuation inhaler Inhale 2 Puffs as instructed every 4 hours as needed for wheezing/shortness of breath. Insulin Dudley, Disposable, (BD ULTRAFINE III MINI PEN) 31 gauge x 3/16 USE WITH INSULIN PENS 4TIMES DAILY flash glucose sensor (FREESTYLE MAIKEL 2 SENSOR) kit Check 8 times per day LANTUS SOLOSTAR U-100 INSULIN 100 unit/mL (3 mL) Inject 18 Units subcutaneously daily at bedtime. Per [facility]. insulin lispro (HUMALOG KWIKPEN) 100 unit/mL Inject 6 Units subcutaneously three times a day with meals. Plus sliding scale. Per [facility]. No current facility-administered medications for this visit. Objective Blood Pressure 132/86 Pulse 106 Respiration 18 Weight 74.3 kg (163 lb 11.2 oz) Oxygen Saturation 98% Body Mass Index 24.17 kg/m Physical Exam Constitutional: General: He is not in acute distress. HENT: Head: Normocephalic. Mouth/Throat: Mouth: Mucous membranes are moist. Pharynx: Oropharynx is clear. No oropharyngeal exudate or posterior oropharyngeal erythema. Eyes: Extraocular Movements: Extraocular movements intact. Conjunctiva/sclera: Conjunctivae normal. Cardiovascular: Rate and Rhythm: Regular rhythm. Tachycardia present. Heart sounds: No murmur heard. No gallop. Pulmonary: Effort: No respiratory distress. Breath sounds: No wheezing or rales. Abdominal: Tenderness: There is no abdominal tenderness. Musculoskeletal: Cervical back: Neck supple. Tenderness present. Right lower leg: No edema. Left Lower Extremity: Left leg is amputated below knee. Lymphadenopathy: Cervical: No cervical adenopathy. Skin: Comments: Scattered discrete dry ulcerations, variable sizes, with postinflammatory pigmentation, generalized. Neurological: General: No focal deficit present. Mental Status: He is alert. Comments: Wheelchair bound. Assessment and Plan 1. Routine medical exam - ICD9: V70.0, ICD10: Z00.00 (primary diagnosis) - Colorectal cancer screening recommended - agrees to Colonoscopy - Smoking cessation encouraged; discussed risks to health and quitting strategies. Patient is not ready to quit 2. 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) - ICD9: 250.61, 357.2, ICD10: E10.42 - Worsening control - per [facility]. - LANTUS SOLOSTAR U-100 INSULIN 100 UNIT/ML (3 ML) SUBCUTANEOUS PEN 3. Sore throat - ICD9: 462, ICD10: J02.9 Chronic. [facility]. - CONSULT TO ENT 4. Screening for colon cancer - ICD9: V76.51, ICD10: Z12.11 Dr. Terrazas. 2nd referral.. - CONSULT TO GASTROENTEROLOGY 5. Primary hypertension - ICD9: 401.9, ICD10: I10 - Controlled - Continue current medications 6. Depression with anxiety - ICD9: 300.4, ICD10: F41.8 - Controlled. 7. Neurodermatitis - ICD9: 698.3, ICD10: L28.0 - Stable. Jah Mas MD documented in this encounterMartin [facility] Hospital03-01-2024 Miscellaneous Notes* Telephone Encounter - Cinthia Pitts RN - 09/18/2023 1:05 PM EST Patient calls and states that he wants all his medications sent to [facility]. Patient has been having issues with [facility] and has been not receiving medications. Patient has been identified by name and date of : Patient phones for refill(s): Requested Prescriptions Pending Prescriptions Disp Refills gabapentin (NEURONTIN) 300 mg capsule 360 capsule 1 Sig: Take 1 capsule by mouth four times daily for 180 days. atorvastatin (LIPITOR) 40 mg tablet 90 tablet 1 Sig: Take 1 tablet by mouth daily at bedtime. For cholesterol. amLODIPine (NORVASC) 5 mg tablet 90 tablet 3 Sig: Take 1 tablet by mouth once daily. amitriptyline (ELAVIL) 25 mg tablet 90 tablet 3 Sig: Take 1 tablet by mouth daily at bedtime. levothyroxine (SYNTHROID) 25 mcg tablet 90 tablet 3 Sig: Take 1 tablet by mouth every morning. pantoprazole DR (PROTONIX) 40 mg tablet 90 tablet 3 Sig: Take 1 tablet by mouth once daily. sertraline (ZOLOFT) 50 mg tablet 90 tablet 3 Sig: Take 1 tablet by mouth once daily. lisinopril (ZESTRIL) 40 mg tablet 90 tablet 3 Sig: Take 1 tablet by mouth once daily. Date of last office visit in primary care: 07/29/2023 Date of next office visit in primary care: 10/30/2023 Please advise. Thank you. Cinthia Pitts RN. documented in this encounterMartin Memorial Hospital02-06-2024 Miscellaneous Notes* Telephone Encounter - Kimberly Inman LPN - 08/25/2023 9:22 AM EST Pt notified of letter. Pt reports his friend Ashly will be picking up letter for him. Kimberly Inman LPN * Telephone Encounter - Gwen Galloway MA - 08/24/2023 4:47 PM EST Unable to reach patient. Left VM to return call to office. Letter taken to [facility]. For chart picker during open building hours. Gwen Galloway MA * Telephone Encounter - Mónica Chairez LPN - 08/21/2023 2:08 PM EST Patient calling received letter for jury duty. Patient said he is disabled and can not walk and wants a letter to excuse him from jury duty. Patient would like to chart picker letter when ready. Please advise documented in this encounterMartin [facility] Hospital01-11-2024 History of Present illness Narrative* Melissa Otero, RT(R) - 07/30/2023 2:40 PM EST Radiology Service Progress Note PATIENT NAME: Tori Cantor DATE OF SERVICE: July 30, 2023 TIME: 2:40 PM PATIENT IDENTITY VERIFICATION COMPLETED USING TWO (2) IDENTIFIERS: Name and Date of confirmedby patient verbally. FALL SCREENING: Has the patient had 2 falls in the last year or 1 fall with injury or currently using an Ambulatory Assistive Device (Walker, Cane, Wheelchair, Crutches, etc.)? Yes, Patient High Riskfor Falls What interventions were put in place to prevent falls during this visit? Instructed Patient to Callfor Help if Needed, Offered Assistance with Transfers/Clothing, and Increased Observations by Caregivers PATIENT GENDER DATA: Male PATIENT RELEVANT IMPLANT DATA REVIEWED: Yes RADIOLOGY DEPARTMENT: General X-ray: Exam(s) Completed: Chest X-Ray PERIPHERAL IV DATA: Not applicable SIGNED BY: RT Bhavya(R) July 30, 2023 2:40 PM documented in this encounterMartin Memorial Hospital12-13-2023 History of Present illness Narrative* Neeraj Cortez - 07/01/2023 1:53 PM EST Second outreach to patient attempt: 07/01/2023 No reason identified, Patient contacted: Spoke with patient Discussion on potential statin use consists of - Patient confirmed to currently be taking atorvastatin 40 mg daily. - Reported to get automatic refills - Reported to have a medical aid who helps manage medications. Outcome of review: Patient confirmed to be taking a statin The Patient verbalizes understanding and denies further questions/concerns at this time. Neeraj Cortez, Student Pharmacist * Neeraj Cortez - 06/29/2023 1:28 PM EST Pt chart reviewed as part of population health initiative focused on statin use in patients with diabetes (DM) or cardiovascular disease (CVD). Tori Cantor is identified through data from [employer] (insurer) as a potential candidate for statin therapy with no prescriptions claims processed for a statin medication in this calendar year. Chart Review The following case components were reviewed for current or historic statin use: Confirmed diabetes and or CVD: Yes Current/Active med list includes a statin: Yes IF YES, Last order date and quantity: 05/22/2023, 90 tab Last pharmacy fill date: Per Epic: 05/22/2023, Per pharmacy phone call: Unable to reach IF NO, reason identified (contraindication, intolerance, exclusion, etc.): N/A ALLERGIES No Known Allergies PAST MEDICAL HISTORY Diagnosis Date Cellulitis of left lower extremity 07/20/2019 Charcot's joint of right foot 11/11/2016 Chronic bilateral low back pain without sciatica Closed trimalleolar fracture of left ankle 05/23/2019 Depression with anxiety 01/25/2016 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) 01/25/2016 Cris, on disability. Dx 10 y.o. DKA (diabetic ketoacidosis) ([facility]) 08/2014, 10/2017 GERD (gastroesophageal reflux disease) 01/25/2016 Hep C w/o coma, chronic ([facility]) 09/29/2018 Overview: In Past History of drug abuse in remission ([facility]) 09/29/2018 History of ischemic colitis 03/14/2016 History of left below knee amputation ([facility]) 07/14/2019 Hyperlipidemia 02/14/2017 Hypertension Hypothyroidism 11/06/2021 IVDU (intravenous drug user) 05/27/2019 Lactose intolerance 07/30/2016 Moderate protein-calorie malnutrition ([facility]) 11/01/2021 Neurodermatitis 01/23/2023 Non-healing wound of amputation stump ([facility]) 09/24/2022 Osteomyelitis of left tibia/BKA with MRSA ([facility]) 11/06/2021 Pancreatitis 08/2014 Perianal abscess 08/03/2018 PVD (peripheral vascular disease) ([facility]) 01/10/2020 Tobacco abuse 05/27/2019 Cholesterol, Total (mg/dL) Date Value 10/29/2022 183 04/27/2003 93.0 HDL Cholesterol (mg/dL) Date Value 10/29/2022 63 09/19/2014 56 LDL Cholesterol (mg/dL) Date Value 10/29/2022 103 LDL Calculated (mg/dL) Date Value 09/19/2014 25 Triglyceride (mg/dL) Date Value 10/29/2022 84 09/19/2014 189 No reason identified, Patient contacted: No answer, left voicemail Outcome of review: Pending outreach to patient - Confirm patient is currently taking atorvastatin 40 mg Neeraj Cortez, Student Pharmacist * Vikki Whatley RPh - 06/29/2023 1:28 PM EST I reviewed this patient's case and agree with the assessment and plan above. Signature: Vikki Whatley RPh documented in this encounterMartin Memorial Hospital11-21-2023 Miscellaneous Notes* Telephone Encounter - Kimberly Inman LPN - 06/09/2023 5:01 PM EST Last OV: 04/22/23 Patient has been identified by name and date of : Yes Requested Prescriptions Pending Prescriptions Disp Refills gabapentin (NEURONTIN) 300 mg capsule 360 capsule 1 Sig: Take 1 capsule by mouth four times daily for 180 days. RX INSTRUCTIONS: Patient aware RX will be sent to pharmacy. No need to notify patient. Kimberly Inman LPN documented in this [facility] History of Present illness Narrative* Marie Steward - 06/04/2023 9:52 AM EST POPULATION HEALTH NAVIGATION OUTREACH Action/I Past due for Pram med, dilated retinal exam, colonoscopy. LVM Patient Identified by Name and : NO Outreach Outcome/Action Unable to reach patient: Left message Did you use a PCP flex slot to schedule this appointment? N/A Reason for Outreach Care Gap or Scheduling/Wellness visits Payer: Payor: JARETH [employer] CROSS AND BLUE SHIELD / Plan: [employer] HMO / Product Type: HMO / Care Gap Reviewed:: Colorectal Cancer Screening Diabetic Eye Exam Specialty Scheduling Reminder: Reminder note to check Health Maintenance for items below Health Maintenance items due: Dilated Retinal Exam due on 11/18/2022 Colorectal Cancer Screening due on 06/19/2023 Navigation Signature: Marie Steward June 04, 2023 9:52 AM documented in this encounterMartin [facility] Hospital10-04-[facility]23 History of Present illness Narrative* Older, SHRUTHI Avila.RETAINING ROOM CUTTER - 04/22/2023 2:43 PM EDT CC Patient presents with: F/U 3 Month: B/p HPI Tori Cantor is a 48 year old male who presents to the office for blood pressure. His visit today is for follow-up. Patient was last seen for this approximately 3 months ago. Medication changes: No Taking all medications as prescribed: Yes Side effects: No Home BP's: No Denies: headache, chest pain, palpitations, dyspnea, and peripheral edema. Last 4 Encounter BP Readings: Date: BP: 04/22/2023 138/86 01/23/2023 130/88[bp dionte average[ 11/12/2022 157/98[bp dionte average[ 09/24/2022 141/90 Last 3 Encounter Wt Readings: Date: Wt: 09/24/2022 72.5 kg (159 lb 12.8 oz) 08/13/2022 72.6 kg (160 lb) 05/09/2022 70.3 kg (155 lb) Reports worsening neuropathy pain in the right foot. Taking Gabapentin 300 mg four times a day. He has an appointment with endocrinology tomorrow and will discuss with her. REVIEW OF SYSTEMS See HPI PAST MEDICAL HISTORY Diagnosis Date Cellulitis of left lower extremity 07/20/2019 Charcot's joint of right foot 11/11/2016 Chronic bilateral low back pain without sciatica Closed trimalleolar fracture of left ankle 05/23/2019 Depression with anxiety 01/25/2016 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) 01/25/2016 Brittle, on disability. Dx 10 y.o. DKA (diabetic ketoacidosis) ([facility]) 08/2014, 10/2017 GERD (gastroesophageal reflux disease) 01/25/2016 Hep C w/o coma, chronic ([facility]) 09/29/2018 Overview: In Past History of drug abuse in remission ([facility]) 09/29/2018 History of ischemic colitis 03/14/2016 History of left below knee amputation ([facility]) 07/14/2019 Hyperlipidemia 02/14/2017 Hypertension Hypothyroidism 11/06/2021 IVDU (intravenous drug user) 05/27/2019 Lactose intolerance 07/30/2016 Moderate protein-calorie malnutrition ([facility]) 11/01/2021 Neurodermatitis 01/23/2023 Non-healing wound of amputation stump ([facility]) 09/24/2022 Osteomyelitis of left tibia/BKA with MRSA ([facility]) 11/06/2021 Pancreatitis 08/2014 Perianal abscess 08/03/2018 PVD (peripheral vascular disease) ([facility]) 01/10/2020 Tobacco abuse 05/27/2019 PAST SURGICAL HISTORY Procedure Laterality Date AMPUTATION LOW LEG THRU TIB/FIB Left 06/24/2019 Left BKA COLONOSCOPY 03/17/2016 resolved colitis, presumed ischemic EGD 11/02/20172013 IR VASCULAR ACCESS TEAM PICC INSERTION RADIO 06/17/2019 REVISION OF LOWER LEG Left 07/06/2020 I&D, revision of BKA stump REVISION OF LOWER LEG Left 09/19/2021 I&D stump REVISION OF LOWER LEG Left 01/27/2020 I&D stump ALLERGIES Patient has no known allergies. MEDICATIONS Insulin Dudley, Disposable, (BD ULTRAFINE III MINI PEN) 31 gauge x /16 USE WITH INSULIN PENS 4TIMES DAILY amLODIPine (NORVASC) 5 mg tablet Take 1 tablet by mouth once daily. gabapentin (NEURONTIN) 300 mg capsule Take 1 capsule by mouth four times daily for 180 days. amitriptyline (ELAVIL) 25 mg tablet Take 1 tablet by mouth daily at bedtime. LANTUS SOLOSTAR U-100 INSULIN 100 unit/mL (3 mL) Inject 35 Units subcutaneously daily at bedtime. levothyroxine (SYNTHROID) 25 mcg tablet Take 1 tablet by mouth every morning. pantoprazole DR (PROTONIX) 40 mg tablet Take 1 tablet by mouth once daily. sertraline (ZOLOFT) 50 mg tablet Take 1 tablet by mouth once daily. lisinopril (ZESTRIL) 40 mg tablet Take 1 tablet by mouth once daily. insulin lispro (HUMALOG KWIKPEN) 100 unit/mL Inject 6 Units subcutaneously w MEALS. mupirocin (BACTROBAN) 2 % ointment apply to affected area twice a day to ACTIVE FLARES for 3 weeks t... (REFER TO PRESCRIPTION NOTES). flash glucose sensor (FREESTYLE MAIKEL 2 SENSOR) kit Check 8 times per day EPCLUSA 400-100 mg FAMILY HISTORY Problem Relation Age of Onset Hypertension Mother Diabetes Mother Stroke Mother Heart Mother CHF Cataract Mother Hypertension Father COPD Father Emphysema Father Social History Tobacco Use Smoking status: Every Day Packs/day: 1.00 Years: 35.00 Additional pack years: 0.00 Total pack years: 35.00 Types: Cigarettes Smokeless tobacco: Never Vaping Use Vaping Use: Never used Substance Use Topics Alcohol use: Not Currently Comment: socially Drug use: Yes Types: Marijuana Comment: currently smokes marijuana 2 times a day. 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 PHYSICAL EXAM BP 128/80 Pulse 100 Resp 18 SpO2 98% General Appearance: well appearing, in no acute distress, alert Feet: left BKA. RLE-No deformities, ulcers, calluses, trace DP distal pulses, not sensitive to monofilament and vibratory perception absent DATA REVIEWED: Most recent labs ASSESSMENT/PLAN: 1. Primary hypertension - ICD9: 401.9, ICD10: I10 (primary diagnosis) - Controlled - Continue current medications - Recommend home blood pressure monitoring, to bring results to next visit - Encouraged sodium restriction, DASH or Mediterranean diet 2. 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) - ICD9: 250.61, 357.2, ICD10: E10.42 Worsening neuropathy symptoms. Not sensitive to monofilament or vibration. Reminded patient to check foot daily. Continue with Gabapentin. Follow-up with endocrinology 3. Encounter for immunization - ICD9: V03.89, ICD10: Z23 - INFLUENZA VACCINE, AGE 6 MO - 64 YR, QUADRIVALENT (AFLURIA, FLULAVAL, FLUZONE) - [employer] (Closed)-[employer] COVID-19 VACCINE (2022- SEASON) AGE 12+ YR Prescription instructions reviewed with patient as applicable. Potential red flag symptoms discussed with the patient. Reviewed appropriate action plan to take if red flag symptoms occur. Patient agreeable to treatment plan Margarita Parisi APRN.CNP documented in this encounterMartin [facility]09-08-[facility]23 History of Present illness Narrative* Morena Israel MA - 03/27/2023 11:08 AM EDT POPULATION HEALTH NAVIGATION OUTREACH Action/FYI Left voicemail message. No my chart. Diabetic retinal exam, hgba1c, colonoscopy Pharm med ( Last hgba1c 11.0 done on 10/29/22). Inquire about flu vaccine Inquire about my chart activation Albumin no longer required for [employer] paywilly Patient already scheduled for follow up/htn appointments on 04/22/23 and 07/29/23. Patient Identified by Name and : NO Outreach Outcome/Action Unable to reach patient: Left message Did you use a PCP flex slot to schedule this appointment? N/A Reason for Outreach Care Gap or Scheduling/Wellness visits Payer: Payor: JARETH [employer] / Plan: JARETH [place] [employer] HMO / Product Type: HMO / Care Gap Reviewed:: Colorectal Cancer Screening Diabetic Eye Exam HBA1C Flu Vaccine Reminder: Reminder note to check Health Maintenance for items below Health Maintenance items due: BP CONTROLLED (<130/80) Never done COVID-19 VACCINE(6 - Moderna series) due on 04/04/2022 URINE ALBUMIN:CREATININE RATIO due on 11/05/2022 DILATED RETINAL EXAM due on 11/18/2022 HBA1C due on 01/28/2023 DIABETIC FOOT EXAM due on 02/05/2023 INFLUENZA(1) due on 03/20/2023 COLORECTAL CANCER SCREENING due on 06/19/2023 Navigation Signature: Morena Israel MA March 27, 2023 11:08 AM documented in this encounterMartin [facility]07-07-2023 Instructions* Patient Instructions* Jah Mas MD - 01/23/2023 3:41 PM EDT Check if you are taking AMLODIPINE 5 mg daily for blood pressure. documented in this encounterMartin [facility]07-07-2023 History of Present illness Narrative* Jah Mas MD - 01/23/2023 3:30 PM EDT This note was created using NoteWriter. Subjective Tori Cantor is a 47 year old male. He was discharged from the Wound Center. His stump was healed.He was on mupirocin per [facility] for neurodermatitis, and skin sores are improved. Diabetes was still labile. Hypertension was better, but he was not sure if he was taking amlodipine. He will be quitting smoking because this was banned from his building. Review of Systems Constitutional: Negative for fever. Respiratory: Negative for shortness of breath. Cardiovascular: Negative. Gastrointestinal: Negative. ACTIVE PROBLEM LIST Hypertension Gerd (Gastroesophageal Reflux Disease) Microalbuminuria History of Diabetic Gastroparesis Diabetic Polyneuropathy Associated With Type 1 Diabetes Mellitus (Hcc) Depression With Anxiety Charcot's Joint of Right Foot Hyperlipidemia Hep C W/O Coma, Chronic ([facility]) History of Drug Abuse in Remission ([facility]) Tobacco Abuse Amputee, Below Knee, Left ([facility]) Osteomyelitis of left tibia/BKA with MRSA ([facility]) Hypothyroidism Pvd (Peripheral Vascular Disease) ([facility]) Non-Healing Wound of Amputation Stump ([facility]) Skin Ulcers ([facility]) Current Outpatient Medications Medication Sig amLODIPine (NORVASC) 5 mg tablet Take 1 tablet by mouth once daily. gabapentin (NEURONTIN) 300 mg capsule Take 1 capsule by mouth four times daily for 180 days. amitriptyline (ELAVIL) 25 mg tablet Take 1 tablet by mouth daily at bedtime. LANTUS SOLOSTAR U-100 INSULIN 100 unit/mL (3 mL) Inject 35 Units subcutaneously daily at bedtime. levothyroxine (SYNTHROID) 25 mcg tablet Take 1 tablet by mouth every morning. pantoprazole DR (PROTONIX) 40 mg tablet Take 1 tablet by mouth once daily. sertraline (ZOLOFT) 50 mg tablet Take 1 tablet by mouth once daily. lisinopril (ZESTRIL) 40 mg tablet Take 1 tablet by mouth once daily. insulin lispro (HUMALOG KWIKPEN) 100 unit/mL Inject 6 Units subcutaneously w MEALS. mupirocin (BACTROBAN) 2 % ointment apply to affected area twice a day to ACTIVE FLARES for 3 weeks t... (REFER TO PRESCRIPTION NOTES). flash glucose sensor (FREESTYLE MAIKEL 2 SENSOR) kit Check 8 times per day EPCLUSA 400-100 mg No current facility-administered medications for this visit. Objective BP 130/88 Pulse 91 Resp 16 Physical Exam Constitutional: General: He is not in acute distress. Comments: Wheelchair bound. Pulmonary: Effort: Pulmonary effort is normal. Musculoskeletal: Comments: Left BKA stump with no ulcers. Skin: Comments: Notable decrease in generalized, crusted ulcerations Neurological: General: No focal deficit present. Mental Status: He is alert. Assessment and Plan 1. Primary hypertension - ICD9: 401.9, ICD10: I10 (primary diagnosis) - Improving control - Continue current medications - Confirm use of amlodipine. He will call and if taking, we will increase dose. 2. 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) - ICD9: 250.61, 357.2, ICD10: E10.42 - Uncontrolled - PEN NEEDLE, DIABETIC 31 GAUGE X 3/16 - ALBUMIN/CREAT RATIO RND UR 3. Non-healing wound of amputation stump (HCC) - ICD9: 997.69, ICD10: T87.89 Resolved. 4. Need for vaccination - ICD9: V05.9, ICD10: Z23 - TDAP VACCINE, AGE 7+ YR (ADACEL, BOOSTRIX) 5. Neurodermatitis - ICD9: 698.3, ICD10: L28.0 [facility] with Mupirocin ointment as directed. Jah Mas MD documented in this encounterMartin [facility] Hospital06-01-[address] Bazzi [facility] December 18, 2022 10:43am Note Date/Time December 18, 2022 10:43 am [facility] [address] [place] [address] Progress Note - Wound Care 12/18/22 1040 MR#: [id number] Acct: [id number] Name: TORI CANTOR Rep #:[id number] : 1975 47 From: Myah nguyen MD PCP: Dr. Jah Mas MD Status:R RCR Location: History of Present Illness Date of Service: 12/18/22 Chief Complaint: left leg ulcer History of Wound: Mr. Cantor is a 47 year-old who presents to the wound center due to nonhealing left stump ulcer. He states that it has been present for about a year. Has tried some measures at home without any significant improvement. Easy bleeding on contact with his prosthesis. Chronic history of tobacco use. Also history of uncontrolled diabetes. He feels well otherwise, no chills, fever or change in bowel habit. Recently established with endocrinology and is working towards better diabetes control. Progress of Wound: No new concerns at this time. Essentially healed. Objective Data Objective Data Vital Signs: Vital Signs Temp Pulse Resp BP 97.6 F L 92 18 125/93 H 12/18/22 09:53 12/18/22 09:53 12/18/22 09:53 12/18/22 09:53 Weight: 160 lb Body Mass Index (BMI) 23.6 Charges/Coding Visit Charges Office Visits / Consults: 96723 OV L3 Est Physical Exam Const alert, oriented x3 and no apparent distress General Appearance: cooperative and comfortable HEENT normocephalic, head/scalp atraumatic and hearing grossly normal bilaterally Eyes EOMs intact bilaterally General Eye: normal appearance of both eyes Neck full ROM and supple General: normal visual inspection Resp normal respiratory effort and normal air movement Effort and Inspection: able to speak in complete sentences Extremity no pedal edema Neuro oriented x3, CN's II-XII intact bilaterally, moves all extremities and no focal motor deficits Psych mental status grossly normal, thought process normal, cooperative and affect normal Debridement Note Debridement Note Post-Debridement Measurements and Additional Note: Post-Debridement Measurements/Treatment - Nurse 1 - General Ulcer Assessment Start: 12/18/22 09:53 Freq: Status: Active Protocol: DESTIN.EVERETTE Activity Type Activity Date Activity User E-sign Co-sign Detail Recorded Client Recorded Date Recorded By Document 12/18/22 09:53 DL [id number] 12/18/22 09:58 DL 12/18/22 09:53 - Today's Visit Information Type of service Follow-up Visit (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 ) Arrival Mode Wheelchair Transfer Assistance None Patient Identification Verified (Name & Yes ) Patient Requires Transmission-Based No Precautions Height and Weight Body Mass Index (BMI) 23.6 BMI Classification Normal Vital Signs Temperature (97.8 F-99.1 F) 97.6 F L Temperature Source Temporal Pulse Rate (60-100) 92 Pulse Location Monitor Respiratory Rate (12-18) 18 Respiratory rate source Observation Blood Pressure (90/60-120/80) 125/93 H Blood Pressure Mean (mm Hg) 103 Source Monitor History Since Last Visit- (Skip if this is Patient's initial visit) Have you changed medications since your No last visit? Any new allergies or adverse reactions No Had a fall/change in ADL's that may No increase risk of falls Signs or symptoms of abuse and/or No neglect since last visit Have you been in the hospital since your No last visit? Has dressing in place as prescribed Yes Has compression in place as prescribed N/A Has offloadiing in place as prescribed Yes Experienced any changes in pain level or No management Left Footwear No Footwear Pain Scale: 0-10 Numeric Is Patient Pain Free? Yes - Nurse 1 - General Ulcer Measurement Start: 12/18/22 09:53 Freq: Status: Active Protocol: Activity Type Activity Date Activity User E-sign Co-sign Detail Recorded Client Recorded Date Recorded By Document 12/18/22 09:53 DL [id number] 12/18/22 09:58 DL 12/18/22 09:53 Wound Center Nurse 1 #2- L STUMP/BKA -Current Size (cm) - Length 0.1 -Current Size (cm) - Width 0.1 -Current Size (cm) - Depth 0.1 -Total Square Cm 0.01 -Photo Taken Yes -Exudate Amt None Present -Wound Margin Thickened -Granulation Amt Large (67-100%) -Granulation Quality Pale -Necrosis Amt None Present (0 %) -Structure Exposed N/A -Texture (Eliza-wound Skin Appearance) Scarring -Moisture (Eliza-wound Skin Appearance) No Abnormality -Color (Eliza-wound Skin Appearance) No Abnormality -Ulcer Cleansing Soap and Water -Foul Odor after Cleansing No -Anesthetic Used 5% Lidocaine Gel WC - Nurse 2 - General Ulcer CM Notes Start: 12/18/22 09:53 Freq: Status: Active Protocol: Activity Type Activity Date Activity User E-sign Co-sign Detail Recorded Client Recorded Date Recorded By Document 12/18/22 10:14 MW [id number] 12/18/22 10:15 MW 12/18/22 10:14 Wound Center Nurse 2 -Time 10:14 -Correct Patient Yes -Correct Side, Site, Position Yes -Correct Procedure Yes -Procedure Performed No -Post Debridement (cm) - Length 0 -Post Debridement (cm) - Width 0 -Post Debridement (cm) - Depth 0 -Total Square (Post) (cm) 0 -Wound/Ulcer Outcome Healed- Epithelialized Pain Scale: 0-10 Numeric Is Patient Pain Free? Yes WC - Nurse 3 - General Ulcer D/C NN Start: 12/18/22 09:53 Freq: Status: Active Protocol: Activity Type Activity Date Activity User E-sign Co-sign Detail Recorded Client Recorded Date Recorded By Document 12/18/22 10:15 MW [id number] 12/18/22 10:16 MW 12/18/22 10:15 Wound Care Center Nurse 3 #2- L STUMP/BKA -Ulcer Cleansing Rinsed/ Irrigated with Saline -Foul Odor after Cleansing No -Negative Pressure Wound Therapy N/A -Primary Dressing Applied NonAdherent Contact Layer, Promogran -Promogran 1 Treatment Response Procedure Tolerated Well Pain Scale: 0-10 Numeric Is Patient Pain Free? Yes Teaching: Wound Center Discharge Instructions -Person Taught Patient -Teaching Method Discussion -Response to teaching Verbalize understanding WC - Visit Discharge Discharge Condition Stable Ambulatory Status Wheelchair Transportation Private Auto Medication Reconcilliation completed & No provided to patient/care provider Clinical Summary of Care Provided Yes Assessment/Plan Assessment/Plan 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: CODE(S): L97.922 - Non-pressure chronic ulcer of unspecified part of left lower leg with fat layer exposed (2) DM type 1 (diabetes mellitus, type 1): CODE(S): E10.9 - Type 1 diabetes mellitus without complications QUALIFIERS: Diabetes mellitus complication status: with hyperglycemia Qualified Code(s): E10.65 - Type 1 diabetes mellitus with hyperglycemia (3) Tobacco use disorder: CODE(S): F17.200 - Nicotine dependence, unspecified, uncomplicated (4) 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 Very minimal area left. Crusting debrided. Continue moistened Promogran daily, adaptic and cover with foam or ABD x 2 weeks. Then, Adaptic and foam for 2 more weeks. Offloading recommended. Increase protein intake, vitamin C, D and zinc. His questions were answered and he was advised to call with any further questions or concerns. Discharge from the wound center. This note was generated with [employer] dictation software. It may contain incorrectwords, spelling, and punctuation that were not noted in checking the note beforesigning. 12/18/22 1043 <Electronically signed by Myah Bazzi MD> Cosigner Signature (if applicable): CC: ~ Signed [facility] Work Phone: [phone] 803-149205-25-[address] Bazzi [facility] December 11, 2022 11:06am Note Date/Time December 11, 2022 10:59 am [facility] [address] [place] [id number] Progress Note - Wound Care 12/11/22 1059 MR#: [id number] Acct: [id number] Name: TORI CANTOR Rep #:[id number] : 1975 47 From: Myah nguyen MD PCP: Dr. Jah Mas MD Status:R EG RCR Location: History of Present Illness Date of Service: 12/11/22 Chief Complaint: left leg ulcer History of Wound: Mr. Cantor is a 47 year-old who presents to the wound center due to nonhealing left stump ulcer. He states that it has been present for about a year. Has tried some measures at home without any significant improvement. Easy bleeding on contact with his prosthesis. Chronic history of tobacco use. Also history of uncontrolled diabetes. He feels well otherwise, no chills, fever or change in bowel habit. Recently established with endocrinology and is working towards better diabetes control. Progress of Wound: No new concerns at this time. Improving. Objective Data Objective Data Vital Signs: Vital Signs Temp Pulse Resp BP O2 Del Method 96 F L 106 H 16 146/103 H Room Air 12/11/22 10:00 12/11/22 10:00 12/11/22 10:00 12/11/22 10:12/11/22 10:00 Oxygen Delivery Method Room Air Weight: 160 lb Body Mass Index (BMI) 23.6 Charges/Coding Procedures Integumentary 111xxx-113xx: [id number] Nayla subq tissue 20 sq cm/< Physical Exam Const alert, oriented x3 and no apparent distress General Appearance: cooperative and comfortable HEENT normocephalic, head/scalp atraumatic and hearing grossly normal bilaterally Eyes EOMs intact bilaterally General Eye: normal appearance of both eyes Neck full ROM and supple General: normal visual inspection Resp normal respiratory effort and normal air movement Effort and Inspection: able to speak in complete sentences Cardio regular rate, regular rhythm, S1 normal heart sound and S2 normal heart sound GI soft to palpation and non-tender Extremity no pedal edema Skin Wounds: wounds noted Neuro oriented x3, CN's II-XII intact bilaterally, moves all extremities and no focal motor deficits Psych mental status grossly normal, thought process normal, cooperative and affect normal Debridement Note Debridement Note Wound debrided: Left BKA stump Type of Debridement: Excisional debridement Anesthesia Used: 4% Lidocaine Solution Depth: Down to and including healthy tissue and in the subcutaneous layer Percentage of wound debrided: 100 Tissue Removed: Slough and devitalized tissue Severity: Fat Layer Exposed Amount of bleeding with debridement: Mild Bleeding Controlled with: Pressure Patient tolerated procedure: Patient tolerated procedure well Post-Debridement Measurements and Additional Note: Post-Debridement Measurements/Treatment - Nurse 1 - General Ulcer Assessment Start: 12/04/22 10:13 Freq: Status: Active Protocol: .LOW[place]TT Activity Type Activity Date Activity User E-sign Co-sign Detail Recorded Client Recorded Date Recorded By Document 12/04/22 10:14 [facility] [id number] 12/04/22 10:31 [facility] Document 12/11/22 10:00 [facility] [id number] 12/11/22 10:06 [facility] 12/04/22 12/11/22 10:14 10:00 - Today's Visit Information Type of service Initial Visit Follow-up Visit (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 ) Arrival Mode Wheelchair Wheelchair Transfer Assistance None None Accompanied by ADOPTED MOTHER Patient Identification Verified (Name & Yes Yes ) Patient Requires Transmission-Based No No Precautions Finger Stick Blood Sugar(mg/dl) (if 101 indicated): Blood Sugar Stated by Patient Height and Weight Height 5 ft 9 in Weight 160 lb Weight in Pounds 160.0 lbs Weight Measurement Method Estimated by Patient Body Mass Index (BMI) 23.6 23.6 BMI Classification Normal Normal BSA - Kingsley 1.88 Vital Signs Temperature (97.8 F-99.1 F) 97.3 F L 96 F L Temperature Source Temporal Temporal Pulse Rate (60-100) 98 106 H Pulse Location Monitor Monitor Respiratory Rate (12-18) 16 16 Respiratory rate source Observation Observation Oxygen Delivery Method Room Air Room Air Blood Pressure (90/60-120/80) 155/103 H 146/103 H Blood Pressure Mean (mm Hg) 120 117 Source Monitor Monitor Position Sitting Sitting Blood Pressure Location Left Arm Left Arm History Since Last Visit- (Skip if this is Patient's initial visit) Have you changed medications since your No last visit? Any new allergies or adverse reactions No Had a fall/change in ADL's that may No increase risk of falls Signs or symptoms of abuse and/or No neglect since last visit Have you been in the hospital since your No last visit? Has compression in place as prescribed N/A Has offloadiing in place as prescribed N/A Experienced any changes in pain level or No management Right Footwear Regular Shoe Other Footwear L BKA Pain Scale: 0-10 Numeric Is Patient Pain Free? Yes Yes Lower Extremity Assessment/ Foot Assessment/ Toe Nail Assessment Right -Posterior Tibial Palpable No -Posterior Tibial Doppler Inaudible -Dorsalis Pedis Palpable No -Dorsalis Pedis Doppler Inaudible -Extremity Color Pale -Hair Growth on Legs No -Hair Growth on Toes No -Temperature of Extremity Cold -Thick No -Discolored No -Deformed No -Improper Length & Hygeine No Left -Lower Extremity Comment (If N/A Above L BKA ) Communication Assessment Preferred language Nigerian System Analyst Required No Able to Read Yes Able to Write Yes Communication Tools None Right Hearing Abillity Normal Left Hearing Abillity Normal Visual Assistive Devices Glasses Teaching Assessment Preferences Verbal,Written, Audio/Visual, Demonstration Barriers to Learning None Readiness To Learn Excellent Willingness to Engage in Self Management High Activies Readiness to Engage in Self Management High Activities Anxiety Level Calm Cooperation Cooperative Perception Coherent Interest in Health Problem Asks Questions Education Importance Acknowledges Need Does Patient Smoke tobacco or other No substances Smoking Status Current every day smoker Is Patient Diabetic 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 Cultural/Christian Needs that may affect No Treatment Plan WC - Nurse 1 - General Ulcer Measurement Start: 12/04/22 10:13 Freq: Status: Active Protocol: Activity Type Activity Date Activity User E-sign Co-sign Detail Recorded Client Recorded Date Recorded By Document 12/04/22 10:14 [facility] [id number] 12/04/22 10:31 BM Document 12/11/22 10:00 [facility] [id number] 12/11/22 10:06 [facility] 12/04/22 12/11/22 10:14 10:00 Wound Center Nurse 1 #2- L STUMP/BKA -Combined with other wound No No -Current Size (cm) - Length 0.8 0.1 -Current Size (cm) - Width 0.8 0.1 -Current Size (cm) - Depth 0.1 0.1 -Total Square Cm 0.64 0.01 -Date of Last Picture (Recall this 12/04/22 12/11/22 field) -Photo Taken Yes Yes -Epithelialization None Present None Present -Tunneling No No -Undermining/Tunneling No No -Circular Undermining No No -Exudate Amt None Present Medium -Exudate Type Serosanguineous -Wound Margin Distinct, Distinct, Outline Outline Attached Attached -Granulation Amt None Present (0 None Present (0 %) %) -Slough/Fibrin Yes Yes -Necrosis Amt Large (67-100%) Large (67-100%) -Necrotic Tissue Type Eschar Eschar -Texture (Eliza-wound Skin Appearance) Assessed, Assessed, Scarring Scarring -Moisture (Eliza-wound Skin Appearance) Assessed Assessed -Color (Eliza-wound Skin Appearance) Assessed Assessed -Temperature (Eliza-wound Skin No Abnormality No Abnormality Appearance) (Pt Warm) (Pt Warm) -Tenderness on Palpation (Eliza-wound No No Skin Appearance) -Ulcer Cleansing Rinsed/ Rinsed/ Irrigated with Irrigated with Saline Saline -Foul Odor after Cleansing No No -Anesthetic Used 5% Lidocaine 5% Lidocaine Gel Gel WC - Nurse 2 - General Ulcer CM Notes Start: 12/04/22 10:13 Freq: Status: Active Protocol: Activity Type Activity Date Activity User E-sign Co-sign Detail Recorded Client Recorded Date Recorded By Document 12/04/22 10:53 [id number] 12/04/22 10:59 Document 12/11/22 10:54 MW [id number] 12/11/22 10:55 MW 12/04/22 12/11/22 10:53 10:54 Wound Center Nurse 2 #2- L STUMP/BKA -Time 10:56 10:54 -Correct Patient Yes Yes -Correct Side, Site, Position Yes Yes -Correct Procedure Yes Yes -Procedure Performed Yes Yes -Type of Procedure Debridement Debridement -Clinical Debridement Subcutaneous Subcutaneous -Tissue Removed Subcutaneous Subcutaneous -Post Debridement (cm) - Length 0.5 0.6 -Post Debridement (cm) - Width 1.0 0.3 -Post Debridement (cm) - Depth 0.1 0.1 -Total Square (Post) (cm) 0.50 0.18 -Area of Debridement (cm) - Length 0.5 0.6 -Area of Debridement (cm) - Width 1.0 0.3 -Total Square (Area) (cm) 0.50 0.18 -Tunneling No No -Undermining/Tunneling No No -Circular Undermining No No -Wound/Ulcer Outcome Not Healed Not Healed -Ulcer Cleansing Rinsed/ Rinsed/ Irrigated with Irrigated with Saline Saline -Foul Odor after Cleansing No No -Bioengineered Tissue No No -Bleeding Controlled with Pressure Pressure -Treatment Response Procedure Procedure Tolerated Well Tolerated Well -Offloading No No -Assistive Device(s) Wheelchair -Debridement - Subq, 1st 20sq cm Yes Yes Pain Scale: 0-10 Numeric Is Patient Pain Free? Yes Yes WC - Nurse 3 - General Ulcer D/C NN Start: 12/04/22 10:13 Freq: Status: Active Protocol: Activity Type Activity Date Activity User E-sign Co-sign Detail Recorded Client Recorded Date Recorded By Document 12/04/22 11:25 RB [id number] 12/04/22 11:26 RB Document 12/11/22 10:57 MW [id number] 12/11/22 10:57 MW 12/04/22 12/11/22 11:25 10:57 Wound Care Center Nurse 3 #2- L STUMP/BKA -Ulcer Cleansing Rinsed/ Rinsed/ Irrigated with Irrigated with Saline Saline -Foul Odor after Cleansing No -Negative Pressure Wound Therapy N/A -Primary Dressing Applied Mepilex Border, Mepilex Border, Promogran Promogran Diana Matter Diana Matter -Mepilex Border 1 1 -Promogran Diana Matter 1 1 Treatment Response Procedure Procedure Tolerated Well Tolerated Well Pain Scale: 0-10 Numeric Is Patient Pain Free? Yes Yes Teaching: Wound Center Dressing Your Wound -Person Taught Patient -Teaching Method Discussion -Response to teaching Verbalize understanding WC - Visit Discharge Discharge Condition Stable Stable Ambulatory Status Wheelchair Wheelchair Transportation Private Auto Private Auto Accompanied by friend Medication Reconcilliation completed & No No provided to patient/care provider Clinical Summary of Care Provided Yes Yes Assessment/Plan Assessment/Plan 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: CODE(S): L97.922 - Non-pressure chronic ulcer of unspecified part of left lower leg with fat layer exposed (2) DM type 1 (diabetes mellitus, type 1): CODE(S): E10.9 - Type 1 diabetes mellitus without complications QUALIFIERS: Diabetes mellitus complication status: with hyperglycemia Qualified Code(s): E10.65 - Type 1 diabetes mellitus with hyperglycemia (3) Tobacco use disorder: CODE(S): F17.200 - Nicotine dependence, unspecified, uncomplicated (4) 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 Some improvement noted. Continue Promogran daily, cover with foam or ABD. Offloading recommended. Increase protein intake, vitamin C, D and zinc. His questions were answered and he was advised to call with any further questions orconcerns. This note was generated with [employer] dictation software. It may contain incorrectwords, spelling, and punctuation that were not noted in checking the note beforesigning. 12/11/22 1106 <Electronically signed by Myah Bazzi MD> Cosigner Signature (if applicable): CC: ~ Signed [facility] Work Phone: 1(244) 182-138405-22-2023 History and physical note Author Dr. Bazzi [facility] December 08, 2022 4:59pm Note Date/Time December 04, 2022 5:49p m [facility] [address] [place] [address] H&P Exam - Wound Care 12/04/22 1739 MR#: [id number] Acct: [id number] Name: TORI CANTOR Rep #:[id number] : 1975 47 From: Myah nguyen MD PCP: Dr. Jah Mas MD Status:R EG RCR Location: History of Present Illness Date of Service: 12/04/22 Chief Complaint: left leg ulcer History of Wound: Mr. Cantor is a 47 year-old who presents to the wound center due to nonhealing left stump ulcer. He states that it has been present for about a year. Has tried some measures at home without any significant improvement. Easy bleeding on contact with his prosthesis. Chronic history of tobacco use. Also history of uncontrolled diabetes. He feels well otherwise, no chills, fever or change in bowel habit. Recently established with endocrinology and is working towards better diabetes control. [facility] Medical History (Updated 12/04/22 @ 17:[address] Myah Bazzi MD) Alcohol abuse Amputation of left lower extremity below knee Anemia Anxiety Arthritis Asthma Back pain due to injury Bladder disease Cellulitis (~09/15/21) Charcot ankle Charcot foot due to diabetes mellitus Chest pain Chronic pain Current use of insulin Depression Diabetes Diabetes mellitus Dietary restriction Difficulty chewing Gastroparesis GERD (gastroesophageal reflux disease) Hearing loss, left Hearing loss, right Hepatitis History of left below knee amputation History of stress test Hypertension Hypothyroidism Injury of back Insulin dependent diabetes mellitus Marijuana use Migraines MRSA infection Neuropathy 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 Open wound Osteoporosis Pancreatitis Polyneuropathy due to type 1 diabetes mellitus Restless legs Rheumatoid arthritis Seizures Smoker Stroke Substance abuse Thyroid disease Tobacco use disorder Type 1 diabetes Uses wheelchair Vision loss of left eye Vision loss of right eye Wound discharge Home Medications gabapentin 300 mg capsule 300 mg PO 4X/DAY nerve pain 08/13/20 [History Last Taken 06/18/22] pantoprazole 40 mg tablet,delayed release 40 mg PO DAILY gerd 08/13/20 [History Last Taken 06/18/22] levothyroxine 25 mcg tablet 25 mcg PO DAILY thyroid 09/15/21 [History Last Taken 06/18/22] sertraline 50 mg tablet (Zoloft) 50 mg PO DAILY 03/05/22 [History Last Taken 06/18/22] amitriptyline 25 mg tablet 25 mg PO QHS 06/17/22 [History Last Taken 06/18/22] amlodipine 5 mg tablet 5 mg PO DAILY 11/17/22 [History Last Taken Unknown] flash glucose sensor (FreeStyle Maikel 2 Sensor kit) #1 ea 11/17/22 [Rx Last Taken Unknown] insulin glargine 100 unit/mL (3 mL) subcutaneous pen (Lantus Solostar U-100 Insulin) 35 unit subcut QHS 11/17/22 [History Last Taken Unknown] insulin lispro 100 unit/mL subcutaneous pen (Humalog KwikPen (U-100) Insulin) 10unit subcut TID 11/17/22 [History Last Taken Unknown] lisinopril 20 mg tablet 40 mg PO DAILY 11/17/22 [History Last Taken Unknown] mupirocin 2 % topical ointment 1 applic topical BID 11/17/22 [History Last Taken Unknown] sofosbuvir 400 mg-velpatasvir 100 mg tablet (Epclusa) 1 tab PO DAILY 11/17/22 [History Last Taken Unknown] Allergy/AdvReac Type Severity Reaction Status Date / Time No Known Allergies Allergy Verified 12/04/22 10:35 Family History Other Cancer Diabetes Heart disease Surgical History H/O tooth extraction History of bilateral cataract extraction Social History Smoking Status: Current every day smoker tobacco type: cigarettes ROS Constitutional Constitutional: Denies fatigue, frequent falls, headache(s), increased appetite,lethargy or malaise Eyes Eyes: Denies change in eye color, decreased night vision, diplopia, discharge from eye(s), discongugate gaze, double vision or dry eyes ENT HEENT: Denies ear pain, epistaxis, facial pain, foreign body in nose, halitosis,headache(s), hearing loss, hoarseness or mouth pain Cardiovascular Cardiovascular: Denies claudication, clubbing, cold extremities, cyanosis, diaphoresis, dizziness or dyspnea at rest Respiratory/Chest Respiratory/Chest: Denies difficulty clearing secretions, dusky skin, dyspnea onexertion, excessive phlegm production, hemoptysis, hoarseness or inability to speak Gastrointestinal Gastrointestinal: Denies chewing difficulty, cramping, diarrhea, dry heaves, dyspepsia, dysphagia or early satiety Genitourinary Genitourinary: Denies flank pain, hematuria, low back pain, painful ejaculations, penile discharge or penile swelling Musculoskeletal Musculoskeletal: Denies extremity pain, loss of height, muscle cramps, muscle weakness, numbness or radiating pain into limb Integumentary Integumentary: Denies hirsutism, jaundice, lesions, nail changes, new lesions, non-healing lesions, photosensitivity or pruritus Neurologic Neurologic: Denies burning sensations, convulsions, disequilibrium, dizziness, focal weakness, frequent falls, headache(s) or lack of coordination Psychiatric Psychiatric: Denies behavioral changes, depression, difficulty concentrating, hallucinations, homicidal ideation, hopelessness or irritability Endocrine Endocrinology: Denies deepening of the voice, excessive sweating, fatigue, flushing, heat intolerance, increase in ring/shoe/hat size or palpitations Hematologic/Lymphatic Hematologic/Lymphatic: Denies easy bleeding or lymphadenopathy Allergic/Immunologic Allergic/Immunologic: Denies lip swelling, throat swelling, tongue swelling, hives, urticaria, eczemia or asthma Vital Signs Vital Signs Vital Signs: 12/04/22 10:14 Temperature 97.3 F L Temperature Source Temporal Pulse Rate 98 Respiratory Rate 16 Blood Pressure 155/103 H Blood Pressure Mean 120 Blood Pressure Source Monitor Blood Pressure Position Sitting Blood Pressure Location Left Arm Oxygen Delivery Method Room Air Weight Weight: 160 lb Body Mass Index (BMI) 23.6 Physical Exam Const alert, oriented x3 and no apparent distress General Appearance: cooperative and comfortable HEENT normocephalic, head/scalp atraumatic and hearing grossly normal bilaterally Eyes EOMs intact bilaterally General Eye: normal appearance of both eyes Neck full ROM and supple General: normal visual inspection Resp normal respiratory effort and normal air movement Effort and Inspection: able to speak in complete sentences Cardio regular rate, regular rhythm, S1 normal heart sound and S2 normal heart sound GI soft to palpation and non-tender Extremity no pedal edema Skin Wounds: wounds noted Neuro oriented x3, CN's II-XII intact bilaterally, moves all extremities and no focal motor deficits Psych mental status grossly normal, thought process normal, cooperative and affect normal Debridement Note Debridement Note Wound debrided: Left BKA stump Type of Debridement: Excisional debridement Anesthesia Used: 4% Lidocaine Solution Depth: Down to and including healthy tissue and in the subcutaneous layer Percentage of wound debrided: 100 Tissue Removed: Slough and devitalized tissue Severity: Fat Layer Exposed Amount of bleeding with debridement: Mild Bleeding Controlled with: Pressure Patient tolerated procedure: Patient tolerated procedure well Post-Debridement Measurements and Additional Note: Post-Debridement Measurements/Treatment - Nurse 1 - General Ulcer Assessment Start: 12/04/22 10:13 Freq: Status: Active Protocol: SAMANTHA Activity Type Activity Date Activity User E-sign Co-sign Detail Recorded Client Recorded Date Recorded By Document 12/04/22 10:14 [facility] [id number] 12/04/22 10:31 [facility] 12/04/22 10:14 - Today's Visit Information Type of service Initial Visit Arrival Mode Wheelchair Transfer Assistance None Accompanied by ADOPTED MOTHER Patient Identification Verified (Name & Yes ) Patient Requires Transmission-Based No Precautions Finger Stick Blood Sugar(mg/dl) (if 101 indicated): Blood Sugar Stated by Patient Height and Weight Height 5 ft 9 in Weight 160 lb Weight in Pounds 160.0 lbs Weight Measurement Method Estimated by Patient Body Mass Index (BMI) 23.6 BMI Classification Normal BSA - Kingsley 1.88 Vital Signs Temperature (97.8 F-99.1 F) 97.3 F L Temperature Source Temporal Pulse Rate (60-100) 98 Pulse Location Monitor Respiratory Rate (12-18) 16 Respiratory rate source Observation Oxygen Delivery Method Room Air Blood Pressure (90/60-120/80) 155/103 H Blood Pressure Mean 120 Source Monitor Position Sitting Blood Pressure Location Left Arm History Since Last Visit- (Skip if this is Patient's initial visit) Right Footwear Regular Shoe Other Footwear L BKA Pain Scale: 0-10 Numeric Is Patient Pain Free? Yes Lower Extremity Assessment/ Foot Assessment/ Toe Nail Assessment Right -Posterior Tibial Palpable No -Posterior Tibial Doppler Inaudible -Dorsalis Pedis Palpable No -Dorsalis Pedis Doppler Inaudible -Extremity Color Pale -Hair Growth on Legs No -Hair Growth on Toes No -Temperature of Extremity Cold -Thick No -Discolored No -Deformed No -Improper Length & Hygeine No Left -Lower Extremity Comment (If N/A Above L BKA ) Communication Assessment Preferred language Nigerian System Analyst Required No Able to Read Yes Able to Write Yes Communication Tools None Right Hearing Abillity Normal Left Hearing Abillity Normal Visual Assistive Devices Glasses Teaching Assessment Preferences Verbal,Written, Audio/Visual, Demonstration Barriers to Learning None Readiness To Learn Excellent Willingness to Engage in Self Management High Activies Readiness to Engage in Self Management High Activities Anxiety Level Calm Cooperation Cooperative Perception Coherent Interest in Health Problem Asks Questions Education Importance Acknowledges Need Does Patient Smoke tobacco or other No substances Smoking Status Current every day smoker Is Patient Diabetic 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 Cultural/Christian Needs that may affect No Treatment Plan WC - Nurse 1 - General Ulcer Measurement Start: 12/04/22 10:13 Freq: Status: Active Protocol: Activity Type Activity Date Activity User E-sign Co-sign Detail Recorded Client Recorded Date Recorded By Document 12/04/22 10:14 [facility] [id number] 12/04/22 10:31 [facility] 12/04/22 10:14 Wound Center Nurse 1 #2- L STUMP/BKA -Combined with other wound No -Current Size (cm) - Length 0.8 -Current Size (cm) - Width 0.8 -Current Size (cm) - Depth 0.1 -Total Square Cm 0.64 -Date of Last Picture (Recall this 12/04/22 field) -Photo Taken Yes -Epithelialization None Present -Tunneling No -Undermining/Tunneling No -Circular Undermining No -Exudate Amt None Present -Wound Margin Distinct, Outline Attached -Granulation Amt None Present (0 %) -Slough/Fibrin Yes -Necrosis Amt Large (67-100%) -Necrotic Tissue Type Eschar -Texture (Eliza-wound Skin Appearance) Assessed, Scarring -Moisture (Eliza-wound Skin Appearance) Assessed -Color (Eliza-wound Skin Appearance) Assessed -Temperature (Eliza-wound Skin No Abnormality Appearance) (Pt Warm) -Tenderness on Palpation (Eliza-wound No Skin Appearance) -Ulcer Cleansing Rinsed/ Irrigated with Saline -Foul Odor after Cleansing No -Anesthetic Used 5% Lidocaine Gel WC - Nurse 2 - General Ulcer CM Notes Start: 12/04/22 10:13 Freq: Status: Active Protocol: Activity Type Activity Date Activity User E-sign Co-sign Detail Recorded Client Recorded Date Recorded By Document 12/04/22 10:53 [id number] 12/04/22 10:59 [id number] 12/04/22 10:53 Wound Center Nurse 2 -Time 10:56 -Correct Patient Yes -Correct Side, Site, Position Yes -Correct Procedure Yes -Procedure Performed Yes -Type of Procedure Debridement -Clinical Debridement Subcutaneous -Tissue Removed Subcutaneous -Post Debridement (cm) - Length 0.5 -Post Debridement (cm) - Width 1.0 -Post Debridement (cm) - Depth 0.1 -Total Square (Post) (cm) 0.50 -Area of Debridement (cm) - Length 0.5 -Area of Debridement (cm) - Width 1.0 -Total Square (Area) (cm) 0.50 -Tunneling No -Undermining/Tunneling No -Circular Undermining No -Wound/Ulcer Outcome Not Healed -Ulcer Cleansing Rinsed/ Irrigated with Saline -Foul Odor after Cleansing No -Bioengineered Tissue No -Bleeding Controlled with Pressure -Treatment Response Procedure Tolerated Well -Offloading No -Assistive Device(s) Wheelchair -Debridement - Subq, 1st 20sq cm Yes Pain Scale: 0-10 Numeric Is Patient Pain Free? Yes - Nurse 3 - General Ulcer D/C NN Start: 12/04/22 10:13 Freq: Status: Active Protocol: Activity Type Activity Date Activity User E-sign Co-sign Detail Recorded Client Recorded Date Recorded By Document 12/04/22 11:25 [id number] 12/04/22 11:26 RB 12/04/22 11:25 Wound Care Center Nurse 3 #2- L STUMP/BKA -Ulcer Cleansing Rinsed/ Irrigated with Saline -Primary Dressing Applied Mepilex Border, Promogran Diana Matter -Mepilex Border 1 -Promogran Diana Matter 1 Treatment Response Procedure Tolerated Well Pain Scale: 0-10 Numeric Is Patient Pain Free? Yes WC - Visit Discharge Discharge Condition Stable Ambulatory Status Wheelchair Transportation Private Auto Medication Reconcilliation completed & No provided to patient/care provider Clinical Summary of Care Provided Yes Charges/Coding Visit Charges Office Visits / Consults: 90443 OV L4 Est Procedures Integumentary 111xxx-113xx: 08105 Nayla subq tissue 20 sq cm/< Assessment/Plan Assessment/Plan 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: CODE(S): L97.922 - Non-pressure chronic ulcer of unspecified part of left lower leg with fat layer exposed (2) DM type 1 (diabetes mellitus, type 1): CODE(S): E10.9 - Type 1 diabetes mellitus without complications QUALIFIERS: Diabetes mellitus complication status: with hyperglycemia Qualified Code(s): E10.65 - Type 1 diabetes mellitus with hyperglycemia (3) Tobacco use disorder: CODE(S): F17.200 - Nicotine dependence, unspecified, uncomplicated (4) 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 No significant extension with internal cavity on probing. No clinical signs of infection. Promogran daily, cover with foam or ABD. Offloading recommended. Most importantly optimal diabetes control and smoking cessation very, very strongly recommended. He voiced understanding and as above states that he is working with endocrinology on diabetes control. Increase protein intake, vitamin C, D and zinc. His questions were answered and he was advised to call with any further questions or concerns. This note was generated with [employer] dictation software. It may contain incorrectwords, spelling, and punctuation that were not noted in checking the note beforesigning. 12/08/22 5848 <Electronically signed by Myah Bazzi MD> Cosigner Signature (if applicable): CC: ~ Signed [facility] Work Phone: 1(290) 670-292604-26-2023 Instructions* Patient Instructions* Margarita Parisi APRN.CNP - 11/12/2022 2:45 PM EDT Increase amlodipine to 5 mg [facility] History of Present illness Narrative* Margarita Parisi APRN.CNP - 11/12/2022 2:25 PM EDT CC: Patient presents with: F/U 3 Month HPI Tori Cantor is a 47 year old male who presents today for follow-up. HTN-Medication changes: Yes. Elevated at appointment 6 weeks ago and he was started on Norvasc 2.5 mg daily Taking all medications as prescribed: Yes Side effects: No Home BP's: No Denies: headache, chest pain, palpitations, dyspnea, and peripheral edema. Last 3 Encounter BP Readings: Date: BP: 11/12/2022 157/98[bp dionte average[ 09/24/2022 141/90 08/13/2022 136/86 He was referred to oracle programmer analyst for chronic sores in various area. They biopsied an ulcer on this right hip, no pathology results back yet. He has follow-up on 11/21 Diabetes control is worsening. Appointment with endocrinology scheduled for 11/17. He has hepatitis C, treated with Harvoni. He has follow-up scheduled for re-testing. REVIEW OF SYSTEMS See HPI PAST MEDICAL HISTORY Diagnosis Date Cellulitis of left lower extremity 07/20/2019 Charcot's joint of right foot 11/11/2016 Chronic bilateral low back pain without sciatica Closed trimalleolar fracture of left ankle 05/23/2019 Depression with anxiety 01/25/2016 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) 01/25/2016 Brittle, on disability. Dx 10 y.o. DKA (diabetic ketoacidosis) ([facility]) 08/2014, 10/2017 GERD (gastroesophageal reflux disease) 01/25/2016 Hep C w/o coma, chronic ([facility]) 09/29/2018 Overview: In Past History of drug abuse in remission ([facility]) 09/29/2018 History of ischemic colitis 03/14/2016 History of left below knee amputation ([facility]) 07/14/2019 Hyperlipidemia 02/14/2017 Hypertension Hypothyroidism 11/06/2021 IVDU (intravenous drug user) 05/27/2019 Lactose intolerance 07/30/2016 Moderate protein-calorie malnutrition ([facility]) 11/01/2021 Osteomyelitis of left tibia/BKA with MRSA ([facility]) 11/06/2021 Pancreatitis 08/2014 Perianal abscess 08/03/2018 PVD (peripheral vascular disease) ([facility]) 01/10/2020 Tobacco abuse 05/27/2019 PAST SURGICAL HISTORY Procedure Laterality Date AMPUTATION LOW LEG THRU TIB/FIB Left 06/24/2019 Left BKA COLONOSCOPY 03/17/2016 resolved colitis, presumed ischemic EGD 11/02/20172013 IR VASCULAR ACCESS TEAM PICC INSERTION RADIO 06/17/2019 REVISION OF LOWER LEG Left 07/06/2020 I&D, revision of BKA stump REVISION OF LOWER LEG Left 09/19/2021 I&D stump REVISION OF LOWER LEG Left 01/27/2020 I&D stump ALLERGIES Patient has no known allergies. MEDICATIONS mupirocin (BACTROBAN) 2 % ointment apply to affected area twice a day to ACTIVE FLARES for 3 weeks t... (REFER TO PRESCRIPTION NOTES). flash glucose sensor (FREESTYLE MAIKEL 2 SENSOR) kit Check 8 times per day gabapentin (NEURONTIN) 300 mg capsule Take 1 capsule by mouth four times daily for 180 days. amLODIPine (NORVASC) 2.5 mg tablet Take 1 tablet by mouth once daily. amitriptyline (ELAVIL) 25 mg tablet Take 1 tablet by mouth daily at bedtime. EPCLUSA 400-100 mg LANTUS SOLOSTAR U-100 INSULIN 100 unit/mL (3 mL) Inject 35 Units subcutaneously daily at bedtime. levothyroxine (SYNTHROID) 25 mcg tablet Take 1 tablet by mouth every morning. pantoprazole DR (PROTONIX) 40 mg tablet Take 1 tablet by mouth once daily. sertraline (ZOLOFT) 50 mg tablet Take 1 tablet by mouth once daily. lisinopril (ZESTRIL, PRINIVIL) 40 mg tablet Take 1 tablet by mouth once daily. insulin lispro (HUMALOG KWIKPEN) 100 unit/mL Inject 6 Units subcutaneously w MEALS. FAMILY HISTORY Problem Relation Age of Onset Hypertension Mother Diabetes Mother Stroke Mother Heart Mother CHF Cataract Mother Hypertension Father COPD Father Emphysema Father Social History Tobacco Use Smoking status: Every Day Packs/day: 1.00 Years: 35.00 Pack years: 35.00 Types: Cigarettes Smokeless tobacco: Never Vaping Use Vaping Use: Never used Substance Use Topics Alcohol use: Not Currently Comment: socially Drug use: Yes Types: Marijuana Comment: currently smokes marijuana 2 times a day. 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 PHYSICAL EXAM BP 157/98 Pulse 83 Resp 18 General Appearance: well appearing, in no acute distress, alert Lungs: Lungs clear to auscultation. No wheezing, rhonchi, rales. Heart: RRR without murmur, gallop, or rubs. No ectopy Health maintenance reviewed with patient: BP CONTROLLED (<130/80) Never done DTAP,TDAP,TD(1 - Tdap) Never done PNEUMOCOCCAL(2 - PCV) due on 03/17/2017 DILATED RETINAL EXAM due on 01/27/2020 URINE ALBUMIN:CREATININE RATIO due on 11/05/2022 HBA1C due on 01/28/2023 DIABETIC FOOT EXAM due on 02/05/2023 COLORECTAL CANCER SCREENING due on 06/19/2023 ANNUAL PCP TEAM CHRONIC DISEASE VISIT due on 09/25/2023 LDL CHOLESTEROL due on 10/30/2023 HEPATITIS B Completed HEPATITIS A Completed INFLUENZA Completed HEPATITIS C SCREENING Completed HIV SCREENING Completed COVID-19 VACCINE Completed DATA REVIEWED: Most recent labs ASSESSMENT/PLAN: 1. Primary hypertension - ICD9: 401.9, ICD10: I10 (primary diagnosis) - suboptimal control - Continue current medication(s) - Increase Norvasc to 5 mg daily - Recommended regular aerobic exercise. - Recommend home blood pressure monitoring, to bring results in on next visit - Goal of BP <130/80 - AMLODIPINE 5 MG TABLET 2. Type 1 diabetes mellitus with other specified complication (HCC) - ICD9: 250.81, ICD10: E10.69 - Worsening control - Continue current medications - follow-up with endocrinology - ALBUMIN/CREAT RATIO RND UR 3. Skin ulcers (HCC) - ICD9: 707.9, ICD10: L98.499 Biopsy results pending, follow-up with [facility] dermatology as scheduled 4. Hep C w/o coma, chronic (HCC) - ICD9: 070.54, ICD10: B18.2 Follow-up with GI 5. Encounter for immunization - ICD9: V03.89, ICD10: Z23 - PNEUMOCOCCAL VACCINE (PREVNAR 20) Prescription instructions reviewed with patient as applicable. Potential red flag symptoms discussed with the patient. Reviewed appropriate action plan to take if red flag symptoms occur. Patient agreeable to treatment plan. Margarita Parisi APRN.CNP documented in this encounterMartin [facility] Hospital04-12-2023 History of Present illness Narrative* Marie Steward - 10/29/2022 9:12 AM EDT POPULATION HEALTH NAVIGATION OUTREACH Action/FYI Past due for dilated retinal exam, HBA1C, UACR, colonoscopy. LVM Patient Identified by Name and : NO Outreach Outcome/Action Unable to reach patient: Left message Did you use a PCP flex slot to schedule this appointment? N/A Reason for Outreach Care Gap or Scheduling/Wellness visits Payer: Payor: [employer] BLUE [employer]IELD / Plan: [employer] HMO / Product Type: HMO / Care Gap Reviewed:: Colorectal Cancer Screening Diabetic Eye Exam HBA1C Nephropathy (Albumin/Creatinine) Urine Reminder: Reminder note to check Health Maintenance for items below Health Maintenance items due: BP CONTROLLED (<130/80) Never done DTAP,TDAP,TD(1 - Tdap) Never done PNEUMOCOCCAL(2 - PCV) due on 03/17/2017 DILATED RETINAL EXAM due on 01/27/2020 HBA1C due on 08/05/2022 URINE ALBUMIN:CREATININE RATIO due on 11/05/2022 LDL CHOLESTEROL due on 11/05/2022 Navigation Signature: Marie Steward October 29, 2022 9:13 AM documented in this encounterMartin Memorial Hospital03-21-2023 History of Present illness Narrative* Robin Arita - 10/07/2022 12:50 PM EDT Pt chart reviewed as part of population health initiative focused on statin use in patients with diabetes (DM) or cardiovascular disease (CVD). Tori Cantor is identified through data from [employer] (insurer) as a potential candidate for statin therapy with no prescriptions claims processed for a statin medication in this calendar year. Chart Review The following case components were reviewed for current or historic statin use: Confirmed diabetes and or CVD: yes Current/Active med list includes a statin: no IF NO, reason identified (contraindication, intolerance, exclusion, etc.): patient is undergoing active Hep C treatment (Epculsa) which is noted to interact with atorvastatin and rosuvastatin ALLERGIES No Known Allergies PAST MEDICAL HISTORY Diagnosis Date Cellulitis of left lower extremity 07/20/2019 Charcot's joint of right foot 11/11/2016 Chronic bilateral low back pain without sciatica Closed trimalleolar fracture of left ankle 05/23/2019 Depression with anxiety 01/25/2016 Diabetic polyneuropathy associated with type 1 diabetes mellitus ([facility]) 01/25/2016 Brittle, on disability. Dx 10 y.o. DKA (diabetic ketoacidosis) ([facility]) 08/2014, 10/2017 GERD (gastroesophageal reflux disease) 01/25/2016 Hep C w/o coma, chronic ([facility]) 09/29/2018 Overview: In Past History of drug abuse in remission ([facility]) 09/29/2018 History of ischemic colitis 03/14/2016 History of left below knee amputation ([facility]) 07/14/2019 Hyperlipidemia 02/14/2017 Hypertension Hypothyroidism 11/06/2021 IVDU (intravenous drug user) 05/27/2019 Lactose intolerance 07/30/2016 Moderate protein-calorie malnutrition ([facility]) 11/01/2021 Osteomyelitis of left tibia/BKA with MRSA ([facility]) 11/06/2021 Pancreatitis 08/2014 Perianal abscess 08/03/2018 PVD (peripheral vascular disease) ([facility]) 01/10/2020 Tobacco abuse 05/27/2019 Cholesterol, Total (mg/dL) Date Value 11/05/2021 155 04/27/2003 93.0 HDL Cholesterol (mg/dL) Date Value 11/05/2021 56 09/19/2014 56 LDL Cholesterol (mg/dL) Date Value 11/05/2021 81 LDL Calculated (mg/dL) Date Value 09/19/2014 25 Triglyceride (mg/dL) Date Value 11/05/2021 88 09/19/2014 189 No reason identified, Patient contacted: Not contacted Outcome of review: - Potential exclusion: patient is undergoing active Hep C treatment, would re- assess appropriateness for starting statin once treatment complete (Epculsa noted to interact with atorvastatin and rosuvastatin) - No outreach necessary Follow-up needed from this call (I.e. labs ordered, consult to pharmacy) - None Robin Arita PharmD Candidate 2022 * Laquita Singleton [facility] - 10/07/2022 12:49 PM EDT Approving student documentation and outreach below. Appears to be receiving HCV treatment at outside facility, unclear end date/recent labs from that team. Would defer to review after treatment is complete. Laquita Singleton [facility] PharmD BCACP documented in this encounterMartin Memorial Hospital03-17-2023 Miscellaneous Notes* Telephone Encounter - Cinthia Pitts RN - 10/03/2022 3:15 PM EDT Tor calls and states that wrong sensor prescription was sent over for Maikel sensor. Tor states that patient has always used the Maikel 2. Please review and advise, Cinthia Pitts RN documented in this encounterMartin Memorial Hospital03-15-2023 Miscellaneous Notes* Telephone Encounter - Fan Rasmussen LPN - 10/01/2022 3:22 PM EDT Patient has been identified by name and date of : Yes Patient phones for refill(s): Requested Prescriptions Pending Prescriptions Disp Refills flash glucose sensor (FREESTYLE MAIKEL 14 DAY SENSOR) kit 2 Kit 5 Sig: Check 8 times per day. Date of last office visit in primary care: 09/24/2022 3 month follow-up: 11/12/2022 Last 2 Encounter Wt Readings: Date: Wt: 09/24/2022 72.5 kg (159 lb 12.8 oz) 08/13/2022 72.6 kg (160 lb) Previous labs/tests for medication: Diabetes: Hemoglobin A1C (%) Date Value 05/05/2022 10.6 11/05/2021 10.1 06/11/2019 11.3 05/27/2019 10.5 Please advise. Thank you. Fan Rasmussen LPN * Telephone Encounter - Mica Jimenez - 10/01/2022 3:05 PM EDT Patient has been identified by name and date of : Yes Requested Prescriptions Pending Prescriptions Disp Refills flash glucose sensor (FREESTYLE MAIKEL 14 DAY SENSOR) kit 2 Kit 5 Sig: Check 8 times per day. RX INSTRUCTIONS: Patient stated [facility] told him he does not have any refills and he is due to change the sensor today. Needs this sent as soon as possible. Patient aware RX will be sent to pharmacy. Please call him. Mica Jimenez documented in this encounterMartin Memorial Hospital03-08-2023 History of Present illness Narrative* Jah Mas MD - 09/24/2022 3:55 PM EST This note was created using [employer]. Subjective Tori Cantor is a 47 year old male. Diabetes was not well controlled. He was scheduled to see Dr. Cristian Naik November 17. Hypertension was not at goal. He mostly stayed on his wheelchair at home. He transfers out of his wheelchair with much difficulty. He ambulates short distances with his walker, mainly to transfer. He was requesting a lift chair to help with transfers. He does not have severe arthritis of the hip or knee. He has severe neuromuscular disease. He practically cannot stand up from a regular arm chair or any chair. He can ambulate with his walker once standing. He is on medications for his leg conditions and had physical therapy in the past. He's had a non healing wound of the left stump. He was not seeing wound care. He's had chronic sores that can itch or burn, at various areas, breaking out, then drying up after several days with scarring. Review of Systems Constitutional: Negative. Respiratory: Negative. Cardiovascular: Negative. Gastrointestinal: Negative. Musculoskeletal: Positive for gait problem. Skin: Positive for rash and wound. Neurological: Positive for numbness. ACTIVE PROBLEM LIST Hypertension Gerd (Gastroesophageal Reflux Disease) Microalbuminuria History of Diabetic Gastroparesis Diabetic Polyneuropathy Associated With Type 1 Diabetes Mellitus ([facility]) Depression With Anxiety Charcot's Joint of Right Foot Hyperlipidemia Hep C W/O Coma, Chronic ([facility]) History of Drug Abuse in Remission ([facility]) Tobacco Abuse Amputee, Below Knee, Left ([facility]) Osteomyelitis of left tibia/BKA with MRSA ([facility]) Hypothyroidism Pvd (Peripheral Vascular Disease) ([facility]) Moderate Protein-Calorie Malnutrition ([facility]) Non-Healing Wound of Amputation Stump ([facility]) Current Outpatient Medications Medication Sig amitriptyline (ELAVIL) 25 mg tablet Take 1 tablet by mouth daily at bedtime. flash glucose sensor (Mogujie MAIKEL 14 DAY SENSOR) kit Check 8 times per day. EPCLUSA 400-100 mg LANTUS SOLOSTAR U-100 INSULIN 100 unit/mL (3 mL) Inject 35 Units subcutaneously daily at bedtime. levothyroxine (SYNTHROID) 25 mcg tablet Take 1 tablet by mouth every morning. pantoprazole DR (PROTONIX) 40 mg tablet Take 1 tablet by mouth once daily. sertraline (ZOLOFT) 50 mg tablet Take 1 tablet by mouth once daily. lisinopril (ZESTRIL, PRINIVIL) 40 mg tablet Take 1 tablet by mouth once daily. insulin lispro (HUMALOG KWIKPEN) 100 unit/mL Inject 6 Units subcutaneously w MEALS. gabapentin (NEURONTIN) 300 mg capsule Take 1 capsule by mouth four times daily for 180 days. No current facility-administered medications for this visit. Objective BP 141/90 (BP Site: Left Arm, BP Position: Sitting, BP Cuff Size: Large Adult) Pulse 95 Resp 16 Wt 72.5 kg (159 lb 12.8 oz) BMI 23.60 kg/m Physical Exam Constitutional: General: He is not in acute distress. Appearance: He is not ill-appearing. Cardiovascular: Rate and Rhythm: Normal rate and regular rhythm. Heart sounds: No murmur heard. Pulmonary: Effort: Pulmonary effort is normal. Breath sounds: Normal breath sounds. Musculoskeletal: Right lower leg: No edema. Comments: Charcot right foot. Right leg atrophy. Left BKA stump with 1.5 x 1 cm reddish, dry ulcer anteriorly. No cellulitis. Skin: Comments: Scattered discrete crusted ulcerations, in posterior neck, anterior neck, arms, legs variable sizes, no drainage, mild tenderness. Neurological: Mental Status: He is alert. Comments: Wheelchair bound. Glucose meter data or log was reviewed for the past month. Range: Average: 241. CGM 6 hour averages: [phone]. Patient was testing via CGM. Reason: medication adjustment, uncontrolled DM, labile blood sugars. Assessment and Plan 1. Skin ulcers (HCC) - ICD9: 707.9, ICD10: L98.499 (primary diagnosis) Possibly needs biopsied. - CONSULT TO DERMATOLOGY 2. 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) - ICD9: 250.61, 357.2, ICD10: E10.42 - Uncontrolled - GABAPENTIN 300 MG CAPSULE - SEAT LIFT MECHANISM COMBL 3. Primary hypertension - ICD9: 401.9, ICD10: I10 - suboptimal control - Continue current medication(s) - Begin amlodipine (Norvasc) - Goal of BP <130/80 - AMLODIPINE 2.5 MG TABLET 4. Charcot's joint of right foot - ICD9: 094.0, 713.5, ICD10: M14.671 - SEAT LIFT MECHANISM COMBL 5. Osteomyelitis of left tibia, unspecified type (HCC) - ICD9: 730.26, ICD10: M86.9 - SEAT LIFT MECHANISM COMBL 6. Amputee, below knee, left (HCC) - ICD9: V49.75, ICD10: Z89.512 - SEAT LIFT MECHANISM COMBL 7. Non-healing wound of amputation stump (HCC) - ICD9: 997.69, ICD10: T87.89 Refer to [facility] wound center. - CONSULT TO NON-[facility] FACILITY Jah Mas MD documented in this encounterMartin Memorial Hospital03-08-2023 History of Past illness Narrative* Problem Noted Date Diagnosed Date Resolved Date Non-healing wound of amputation stump 09/24/2022 01/23/2023 Skin ulcers 09/24/2022 01/23/2023 Moderate protein-calorie malnutrition 11/01/2021 11/12/2022 Overview: Renewed previous PCP [place] Medicaid CMN enteral nutrition order for Boost 240Cal/8oz;480cal per day; supplier [facility] [place], [place] Sepsis 06/09/2019 06/27/2021 Nicotine use disorder, F17.2 05/31/2019 02/05/2022 Last Assessment & Plan: Continues to smoke about 1 PPD. No desire to quit at this time IVDU (intravenous drug user) 05/27/2019 11/06/2021 Moderate episode of recurren t major depressive disorder 09/02/2018 09/29/2018 Obesity 02/11/2017 04/05/2018 Lactose intolerance 07/30/2016 02/15/20 17 Abdominal pain, right lower quadrant 11/23/2009 01/25/2016 Abdominal pain, left lower quadrant 11/23/2009 01/25/2016 documented as of this encounter (statuses as of 01/24/2023) [facility] History of Past illness Narrative* Problem Noted Date Diagnosed Date Resolved Date Non-healing wound of amputation stump 09/24/2022 01/23/2023 Skin ulcers 09/24/2022 01/23/2023 Moderate protein-calorie malnutrition 11/01/2021 11/12/2022 Overview: Renewed previous PCP [place] Medicaid CMN enteral nutrition order for Boost 240Cal/8oz;480cal per day; supplier [facility] [place], [place] Sepsis 06/09/2019 06/27/2021 Nicotine use disorder, F17.2 05/31/2019 02/05/2022 Last Assessment & Plan: Continues to smoke about 1 PPD. No desire to quit at this time IVDU (intravenous drug user) 05/27/2019 11/06/2021 Moderate episode of recurren t major depressive disorder 09/02/2018 09/29/2018 Obesity 02/11/2017 04/05/2018 Lactose intolerance 07/30/2016 02/15/20 17 Abdominal pain, right lower quadrant 11/23/2009 01/25/2016 Abdominal pain, left lower quadrant 11/23/2009 01/25/2016 documented as of this encounter (statuses as of 03/27/2023) [facility] of Past illness Narrative* Problem Noted Date Diagnosed Date Resolved Date Non-healing wound of amputation stump 09/24/2022 01/23/2023 Skin ulcers 09/24/2022 01/23/2023 Moderate protein-calorie malnutrition 11/01/2021 11/12/2022 Overview: Renewed previous PCP [place] Medicaid CMN enteral nutrition order for Boost 240Cal/8oz;480cal per day; supplier [facility] [place], [place] Sepsis 06/09/2019 06/27/2021 Nicotine use disorder, F17.2 05/31/2019 02/05/2022 Last Assessment & Plan: Continues to smoke about 1 PPD. No desire to quit at this time IVDU (intravenous drug user) 05/27/2019 11/06/2021 History of drug abuse in remission 09/29/2018 04/22/2023 Last Assessment & Plan: History of IV drug abuse, cocaine and meth. Has been clean for 3 years except does smoke marijuana at least twice a day. Moderate episode of recurren t major depressive disorder 09/02/2018 09/29/2018 Obesity 02/11/2017 04/05/2018 Lactose intolerance 07/30/2016 02/15/20 17 Abdominal pain, right lower quadrant 11/23/2009 01/25/2016 Abdominal pain, left lower quadrant 11/23/2009 01/25/2016 documented as of this encounter (statuses as of 04/24/2023) [facility] of Past illness Narrative* Problem Noted Date Diagnosed Date Resolved Date Non-healing wound of amputation stump 09/24/2022 01/23/2023 Skin ulcers 09/24/2022 01/23/2023 Moderate protein-calorie malnutrition 11/01/2021 11/12/2022 Overview: Renewed previous PCP [place] Medicaid CMN enteral nutrition order for Boost 240Cal/8oz;480cal per day; supplier [facility] [place], [place] Sepsis 06/09/2019 06/27/2021 Nicotine use disorder, F17.2 05/31/2019 02/05/2022 Last Assessment & Plan: Continues to smoke about 1 PPD. No desire to quit at this time IVDU (intravenous drug user) 05/27/2019 11/06/2021 History of drug abuse in remission 09/29/2018 04/22/2023 Last Assessment & Plan: History of IV drug abuse, cocaine and meth. Has been clean for 3 years except does smoke marijuana at least twice a day. Moderate episode of recurren t major depressive disorder 09/02/2018 09/29/2018 Obesity 02/11/2017 04/05/2018 Lactose intolerance 07/30/2016 02/15/20 17 Abdominal pain, right lower quadrant 11/23/2009 01/25/2016 Abdominal pain, left lower quadrant 11/23/2009 01/25/2016 documented as of this encounter (statuses as of 06/04/2023) [facility] of Past illness Narrative* Problem Noted Date Diagnosed Date Resolved Date Non-healing wound of amputation stump 09/24/2022 01/23/2023 Skin ulcers 09/24/2022 01/23/2023 Moderate protein-calorie malnutrition 11/01/2021 11/12/2022 Overview: Renewed previous PCP [place] Medicaid CMN enteral nutrition order for Boost 240Cal/8oz;480cal per day; supplier [facility] [place], [place] Sepsis 06/09/2019 06/27/2021 Nicotine use disorder, F17.2 05/31/2019 02/05/2022 Last Assessment & Plan: Continues to smoke about 1 PPD. No desire to quit at this time IVDU (intravenous drug user) 05/27/2019 11/06/2021 History of drug abuse in remission 09/29/2018 04/22/2023 Last Assessment & Plan: History of IV drug abuse, cocaine and meth. Has been clean for 3 years except does smoke marijuana at least twice a day. Moderate episode of recurren t major depressive disorder 09/02/2018 09/29/2018 Obesity 02/11/2017 04/05/2018 Lactose intolerance 07/30/2016 02/15/20 17 Abdominal pain, right lower quadrant 11/23/2009 01/25/2016 Abdominal pain, left lower quadrant 11/23/2009 01/25/2016 documented as of this encounter (statuses as of 06/10/2023) [facility] of Past illness Narrative* Problem Noted Date Diagnosed Date Resolved Date Non-healing wound of amputation stump 09/24/2022 01/23/2023 Skin ulcers 09/24/2022 01/23/2023 Moderate protein-calorie malnutrition 11/01/2021 11/12/2022 Overview: Renewed previous PCP [place] Medicaid CMN enteral nutrition order for Boost 240Cal/8oz;480cal per day; supplier [facility] [place], [place] Sepsis 06/09/2019 06/27/2021 Nicotine use disorder, F17.2 05/31/2019 02/05/2022 Last Assessment & Plan: Continues to smoke about 1 PPD. No desire to quit at this time IVDU (intravenous drug user) 05/27/2019 11/06/2021 History of drug abuse in remission 09/29/2018 04/22/2023 Last Assessment & Plan: History of IV drug abuse, cocaine and meth. Has been clean for 3 years except does smoke marijuana at least twice a day. Moderate episode of recurren t major depressive disorder 09/02/2018 09/29/2018 Obesity 02/11/2017 04/05/2018 Lactose intolerance 07/30/2016 02/15/20 17 Abdominal pain, right lower quadrant 11/23/2009 01/25/2016 Abdominal pain, left lower quadrant 11/23/2009 01/25/2016 documented as of this encounter (statuses as of 07/03/2023) [facility] of Past illness Narrative* Problem Noted Date Diagnosed Date Resolved Date Non-healing wound of amputation stump 09/24/2022 01/23/2023 Skin ulcers 09/24/2022 01/23/2023 Moderate protein-calorie malnutrition 11/01/2021 11/12/2022 Overview: Renewed previous PCP [place] Medicaid CMN enteral nutrition order for Boost 240Cal/8oz;480cal per day; supplier [facility] [place], [place] Sepsis 06/09/2019 06/27/2021 Nicotine use disorder, F17.2 05/31/2019 02/05/2022 Last Assessment & Plan: Continues to smoke about 1 PPD. No desire to quit at this time IVDU (intravenous drug user) 05/27/2019 11/06/2021 History of drug abuse in remission 09/29/2018 04/22/2023 Last Assessment & Plan: History of IV drug abuse, cocaine and meth. Has been clean for 3 years except does smoke marijuana at least twice a day. Moderate episode of recurren t major depressive disorder 09/02/2018 09/29/2018 Obesity 02/11/2017 04/05/2018 Lactose intolerance 07/30/2016 02/15/20 17 Abdominal pain, right lower quadrant 11/23/2009 01/25/2016 Abdominal pain, left lower quadrant 11/23/2009 01/25/2016 documented as of this encounter (statuses as of 08/25/2023) [facility] of Past illness Narrative* Problem Noted Date Diagnosed Date Resolved Date Non-healing wound of amputation stump 09/24/2022 01/23/2023 Skin ulcers 09/24/2022 01/23/2023 Moderate protein-calorie malnutrition 11/01/2021 11/12/2022 Overview: Renewed previous PCP [place] Medicaid CMN enteral nutrition order for Boost 240Cal/8oz;480cal per day; supplier [facility] [place], [place] Sepsis 06/09/2019 06/27/2021 Nicotine use disorder, F17.2 05/31/2019 02/05/2022 Last Assessment & Plan: Continues to smoke about 1 PPD. No desire to quit at this time IVDU (intravenous drug user) 05/27/2019 11/06/2021 History of drug abuse in remission 09/29/2018 04/22/2023 Last Assessment & Plan: History of IV drug abuse, cocaine and meth. Has been clean for 3 years except does smoke marijuana at least twice a day. Moderate episode of recurren t major depressive disorder 09/02/2018 09/29/2018 Obesity 02/11/2017 04/05/2018 Lactose intolerance 07/30/2016 02/15/20 17 Abdominal pain, right lower quadrant 11/23/2009 01/25/2016 Abdominal pain, left lower quadrant 11/23/2009 01/25/2016 documented as of this encounter (statuses as of 09/19/2023) [facility] History of Past illness Narrative* Problem Noted Date Diagnosed Date Resolved Date Non-healing wound of amputation stump 09/24/2022 01/23/2023 Skin ulcers 09/24/2022 01/23/2023 Moderate protein-calorie malnutrition 11/01/2021 11/12/2022 Overview: Renewed previous PCP [place] Medicaid CMN enteral nutrition order for Boost 240Cal/8oz;480cal per day; supplier [facility] [place], [place] Sepsis 06/09/2019 06/27/2021 Nicotine use disorder, F17.2 05/31/2019 02/05/2022 Last Assessment & Plan: Continues to smoke about 1 PPD. No desire to quit at this time IVDU (intravenous drug user) 05/27/2019 11/06/2021 Hep C w/o coma, chronic 09/29/201810/18 Overview: Overview: In Past Last Assessment & Plan: He was supposed to follow-up with ABBIE Terrazas but unable to make it to appointment. He has never been treated for Hepatitis C, unsure when levels were last checked. Reports bilateral flank pain, worried it is his liver. Denies jaundice, discolored urine or stool History of drug abuse in remission 09/29/2018 04/22/2023 Last Assessment & Plan: History of IV drug abuse, cocaine and meth. Has been clean for 3 years except does smoke marijuana at least twice a day. Moderate episode of recurren t major depressive disorder 09/02/2018 09/29/2018 Obesity 02/11/2017 04/05/2018 Lactose intolerance 07/30/2016 02/15/20 17 Abdominal pain, right lower quadrant 11/23/2009 01/25/2016 Abdominal pain, left lower quadrant 11/23/2009 01/25/2016 documented as of this encounter (statuses as of 10/31/2023) [facility] Miscellaneous Notes* Telephone Encounter - Mónica Chairez LPN - 08/15/2022 1:59 PM EST Patient returned call and went over results, notes from Margarita Parisi GRIDCAP MACHINE OPERATOR with understanding. * Telephone Encounter - Maryana Easton Ma - 08/15/2022 11:22 AM EST Left message for patient to return call. Maryana Easton Ma * Telephone Encounter - Maryana Easton Ma - 08/15/2022 11:10 AM EST ----- Message from Margarita Parisi APRN.CNP sent at 08/15/2022 7:34 AM EST ----- Chest x-ray was normal. Treatment with antibiotics is not indicated at this time. If no improvementin symptoms by next week let me know Margarita Parisi APRN.CNP documented in this encounterMartin [facility] Instructions* Patient Instructions* Margarita Parisi APRN.CNP - 08/13/2022 2:48 PM EST Call [facility] to schedule with cleaner operator Dr. Brian Naik if you don't hear from them byFriday Increase Lantus to 35 units at bedtime Increase Lisinopril to 40 mg daily documented in this encounterMartin [facility]01-[facility]23 History of Present illness Narrative* Margarita Parisi APRN.CNP - 08/13/2022 2:43 PM EST CC: Patient presents with: F/U 3 Month HPI Tori Cantor is a 47 year old male who presents today for above. Patient reports respiratory symptoms x 2 weeks. Symptoms including sore throat, productive cough with white sputum, wheezing, fatigue. He started feeling feverish about one week ago. Symptoms are staying the same. Denies chills, body aches, SOB, nausea, vomiting, diarrhea, nasal congestion, runny nose, loss of taste smell. He has not done any COVID testing. No sick contacts. He is up to date on COVID vaccines. Denies history of asthma or COPD. 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) Home blood sugar readings: patient has CGM, does not have any specific numbers but generally blood sugars are in the 200's to 300's. He was referred to cleaner operator at [facility] but they never called him to schedule Hypoglycemia: No He is compliant with medication(s) and is tolerating med(s) without any side effects. Patient's last HgA1C was Hemoglobin A1C (%) Date Value 05/05/2022 10.6 11/05/2021 10.1 06/11/2019 11.3 05/27/2019 10.5 Hypertension Medication changes:No Taking all medications as prescribed: Yes Side effects: No Home BP's: No Denies: headache, chest pain, palpitations, dyspnea and peripheral edema. Last 3 Encounter BP Readings: Date: BP: 08/13/2022 136/86 05/09/2022 114/80 02/05/2022 132/88 REVIEW OF SYSTEMS See HPI PAST MEDICAL HISTORY Diagnosis Date Cellulitis of left lower extremity 07/20/2019 Charcot's joint of right foot 11/11/2016 Chronic bilateral low back pain without sciatica Closed trimalleolar fracture of left ankle 05/23/2019 Depression with anxiety 01/25/2016 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) 01/25/2016 [place], on disability. Dx 10 y.o. DKA (diabetic ketoacidosis) ([facility]) 08/2014, 10/2017 GERD (gastroesophageal reflux disease) 01/25/2016 Hep C w/o coma, chronic ([facility]) 09/29/2018 Overview: In Past History of drug abuse in remission ([facility]) 09/29/2018 History of ischemic colitis 03/14/2016 History of left below knee amputation ([facility]) 07/14/2019 Hyperlipidemia 02/14/2017 Hypertension Hypothyroidism 11/06/2021 IVDU (intravenous drug user) 05/27/2019 Lactose intolerance 07/30/2016 Moderate protein-calorie malnutrition ([facility]) 11/01/2021 Osteomyelitis of left tibia/BKA with MRSA ([facility]) 11/06/2021 Pancreatitis 08/2014 Perianal abscess 08/03/2018 PVD (peripheral vascular disease) ([facility]) 01/10/2020 Tobacco abuse 05/27/2019 PAST SURGICAL HISTORY Procedure Laterality Date AMPUTATION LOW LEG THRU TIB/FIB Left 06/24/2019 Left BKA COLONOSCOPY 03/17/2016 resolved colitis, presumed ischemic EGD 11/02/2017 2014 IR VASCULAR ACCESS TEAM PICC INSERTION RADIO 06/17/2019 REVISION OF LOWER LEG Left 07/06/2020 I&D, revision of BKA stump REVISION OF LOWER LEG Left 09/19/2021 I&D stump REVISION OF LOWER LEG Left 01/27/2020 I&D stump ALLERGIES Patient has no known allergies. MEDICATIONS EPCLUSA 400-100 mg insulin lispro (HUMALOG KWIKPEN) 100 unit/mL Inject 6 Units subcutaneously w MEALS. gabapentin (NEURONTIN) 300 mg capsule Take 1 capsule by mouth four times daily for 180 days. lisinopril (ZESTRIL, PRINIVIL) 20 mg tablet Take 1 tablet by mouth once daily. levothyroxine (SYNTHROID) 25 mcg tablet Take 1 tablet by mouth every morning. sertraline (ZOLOFT) 50 mg tablet Take 1 tablet by mouth once daily. LANTUS SOLOSTAR U-100 INSULIN 100 unit/mL (3 mL) Inject 15 Units subcutaneously twice daily. pantoprazole DR (PROTONIX) 40 mg tablet Take 1 tablet by mouth once daily. flash glucose sensor (FREESTYLE MAIKEL 14 DAY SENSOR) kit Check 8 times per day. amitriptyline (ELAVIL) 25 mg tablet Take 1 tablet by mouth daily at bedtime. FAMILY HISTORY Problem Relation Age of Onset Hypertension Mother Diabetes Mother Stroke Mother Heart Mother CHF Cataract Mother Hypertension Father COPD Father Emphysema Father Social History Tobacco Use Smoking status: Every Day Packs/day: 1.00 Years: 35.00 Pack years: 35.00 Types: Cigarettes Smokeless tobacco: Never Vaping Use Vaping Use: Never used Substance Use Topics Alcohol use: Not Currently Comment: socially Drug use: Yes Types: Marijuana Comment: currently smokes marijuana 2 times a day. 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 PHYSICAL EXAM BP 136/86 Pulse 102 Resp 16 Wt 72.6 kg (160 lb) BMI 23.63 kg/m General Appearance: well appearing, in no acute distress, alert Eyes: conjunctiva pink and moist, no icterus, sclera white, non-injected Nose/sinus: No sinus tenderness Neck: Neck supple, No adenopathy Lungs: Lung sounds diminished throughout. No wheezing, rhonchi, rales. Heart: RRR without murmur, gallop, or rubs. No ectopy Health maintenance reviewed with patient: PNEUMOCOCCAL(1 - PCV) Never done BP CONTROLLED (<130/80) Never done DTAP,TDAP,TD(1 - Tdap) Never done DILATED RETINAL EXAM due on 01/27/2020 HBA1C due on 08/05/2022 URINE ALBUMIN:CREATININE RATIO due on 11/05/2022 LDL CHOLESTEROL due on 11/05/2022 DIABETIC FOOT EXAM due on 02/05/2023 ANNUAL PCP TEAM CHRONIC DISEASE VISIT due on 05/09/2023 COLORECTAL CANCER SCREENING due on 06/19/2023 HEPATITIS B Completed HEPATITIS A Completed INFLUENZA Completed HEPATITIS C SCREENING Completed HIV SCREENING Completed COVID-19 VACCINE Completed DATA REVIEWED: Most recent labs ASSESSMENT/PLAN: 1. 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) - ICD9: 250.61, 357.2, ICD10: E10.42 (primary diagnosis) poorly controlled - Continue current medications - Increase Lantus to 35 units QPM - referral to endocrinology refaxed, patient was advised to call [facility] to schedule if he does not hear from them by Thursday - AMITRIPTYLINE 25 MG TABLET - FREESTYLE MAIKEL 14 DAY SENSOR KIT - LANTUS SOLOSTAR U-100 INSULIN 100 UNIT/ML (3 ML) SUBCUTANEOUS PEN - HGB A1C 2. Primary hypertension - ICD9: 401.9, ICD10: I10 - suboptimal control - Increase Lisinopril to 40 mg daily - Recommended regular aerobic exercise. - Recommend home blood pressure monitoring, to bring results in on next visit - Goal of BP <130/80 - LISINOPRIL 40 MG TABLET 3. Acute cough - ICD9: 786.2, ICD10: R05.1 Suspect viral URI - Discussed viral etiology and rationale for treatment. - Symptomatic treatment with prn analgesia. The patient may also use OTC cough medicine as needed. Supportive care with fluids and rest. - XR CHEST 2V FRONTAL/LAT today 4. Depression with anxiety - ICD9: 300.4, ICD10: F41.8 Stable - AMITRIPTYLINE 25 MG TABLET - SERTRALINE 50 MG TABLET 5. Wheezing - ICD9: 786.07, ICD10: R06.2 See #3 - XR CHEST 2V FRONTAL/LAT 6. Hypothyroidism, unspecified type - ICD9: 244.9, ICD10: E03.9 - LEVOTHYROXINE 25 MCG TABLET - TSH BLD 7. Gastroesophageal reflux disease, unspecified whether esophagitis present - ICD9: 530.81, ICD10: K21.9 Stable - PANTOPRAZOLE 40 MG TABLET,DELAYED RELEASE 8. Pure hypercholesterolemia - ICD9: 272.0, ICD10: E78.00 - LIPID PANEL BASIC Prescription instructions reviewed with patient as applicable. Potential red flag symptoms discussed with the patient. Reviewed appropriate action plan to take if red flag symptoms occur. Patient agreeable to treatment plan. Margarita Parisi APRN.CNP documented in this encounter[facility]11[facility] Miscellaneous Notes* Telephone Encounter - Brian Rousseau Ma - 06/16/2022 2:39 PM EST VERONIKA: 05/09/2022 * Telephone Encounter - Sivan Jimenez - 06/16/2022 1:50 PM EST Patient has been identified by name and date of : Yes Requested Prescriptions Pending Prescriptions Disp Refills insulin lispro (HUMALOG KWIKPEN) 100 unit/mL 2 Sig: Inject 6 Units subcutaneously w MEALS. RX INSTRUCTIONS: Patient aware RX will be sent to pharmacy. No need to notify patient. Sivan Mccarty Pss documented in this encounterMartin [facility] Hospital10-21-2022 History of Present illness Narrative* Jah Mas MD - 05/09/2022 3:49 PM EDT This note was created using [employer]. Subjective Tori Cantor is a 47 year old male. He was concerned about another stump infection brewing. He hadsome drainage and pain of the left stump. His last experience at the [facility] was less satisfactory. Diabetes was brittle. He was using a Maikel which he forgot to bring. We reviewed his labs. He has seen [facility] and will be scheduled for upper and lower endoscopies. He will also be called about hepatitis C treatment. GI consult was on file. ACTIVE PROBLEM LIST Hypertension Gerd (Gastroesophageal Reflux Disease) Microalbuminuria History of Diabetic Gastroparesis Diabetic Polyneuropathy Associated With Type 1 Diabetes Mellitus (Hcc) Depression With Anxiety Charcot's Joint of Right Foot Hyperlipidemia Hep C W/O Coma, Chronic (Hcc) History of Drug Abuse in Remission (Hcc) Tobacco Abuse History of Left Below Knee Amputation (Hcc) 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) Hypothyroidism Pvd (Peripheral Vascular Disease) (Hcc) Moderate Protein-Calorie Malnutrition (Hcc) Current Outpatient Medications Medication Sig lisinopril (ZESTRIL, PRINIVIL) 20 mg tablet Take 1 tablet by mouth once daily. levothyroxine (SYNTHROID) 25 mcg tablet Take 1 tablet by mouth every morning. sertraline (ZOLOFT) 50 mg tablet Take 1 tablet by mouth once daily. LANTUS SOLOSTAR U-100 INSULIN 100 unit/mL (3 mL) Inject 15 Units subcutaneously twice daily. pantoprazole DR (PROTONIX) 40 mg tablet Take 1 tablet by mouth once daily. flash glucose sensor ([employer]ates[employer]STYLE MAIKEL 14 DAY SENSOR) kit Check 8 times per day. amitriptyline (ELAVIL) 25 mg tablet Take 1 tablet by mouth daily at bedtime. gabapentin (NEURONTIN) 300 mg capsule Take 1 capsule by mouth four times daily for 180 days. insulin lispro (HUMALOG KWIKPEN) 100 unit/mL inpn Inject 6 Units subcutaneously w MEALS. No current facility-administered medications for this visit. Review of Systems Constitutional: Negative for chills and fever. Respiratory: Negative. Cardiovascular: Negative. Gastrointestinal: Negative. Psychiatric/Behavioral: Negative. Objective BP 114/80 Pulse 90 Wt 70.3 kg (155 lb) SpO2 98% BMI 22.89 kg/m Physical Exam Constitutional: Appearance: He is not ill-appearing. Cardiovascular: Rate and Rhythm: Normal rate and regular rhythm. Pulmonary: Breath sounds: Normal breath sounds. Musculoskeletal: Right lower leg: No edema. Comments: Left BKA with no redness, warmth, tenderness. <1 cm crusted wound anteriorly with mildsurrounding redness. No SC crepitus or swelling. Neurological: Mental Status: He is alert. Component Latest Ref Rng & Units 05/05/2022 Glucose 74 - 99 mg/dL 466 (H) BUN 9 - 24 mg/dL 27 (H) Creatinine 0.73 - 1.22 mg/dL 0.66 (L) Sodium 136 - 144 mmol/L 132 (L) Potassium 3.7 - 5.1 mmol/L 5.3 (H) Chloride 97 - 105 mmol/L 95 (L) CO2 22 - 30 mmol/L 26 Anion Gap 9 - 18 mmol/L 11 Calcium 8.5 - 10.2 mg/dL 10.0 eGFR >=60 mL/min/1.73m 116 HIV 12 Combo (Ag/Ab) Nonreactive Nonreactive HIV 1/2 Ab HIV Interpretation Hemoglobin A1C 4.3 - 5.6 % 10.6 (H) Estimated Average Glucose mg/dL 258 Hep B Surface Ab, Qual Negative Negative Hepatitis A IgG Negative Positive (A) Assessment and Plan 1. Amputation stump infection (HCC) - ICD9: 997.62, ICD10: T87.40 (primary diagnosis) - DOXYCYCLINE HYCLATE 100 MG TABLET - If symptoms worsen, he preferred referral to [facility]. 2. Encounter for immunization - ICD9: V03.89, ICD10: Z23 - INFLUENZA VACCINE QUADRIVALENT 6 MO - 64 YRS IM 3. Primary hypertension - ICD9: 401.9, ICD10: I10 - good control - LISINOPRIL 20 MG TABLET 4. 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) - ICD9: 250.61, 357.2, ICD10: E10.42 Poorly controlled, brittle. - GABAPENTIN 300 MG CAPSULE - CONSULT TO ENDOCRINOLOGY. Dr. Brian Naik. 5. Need for vaccination - ICD9: V05.9, ICD10: Z23 - HEPATITIS B VACCINE, ADULT AGE 20+, IM Jah Mas MD documented in this encounterMartin [facility] Hospital10-14-2022 History of Present illness Narrative* Sanjuanita Saavedra MA - 05/02/2022 11:51 AM EDT POPULATION HEALTH NAVIGATION OUTREACH Action/FYI Patient is due for colonoscopy (GI consult placed), JAGJIT, A1C, and flu Left message to call office. Pt identified by name and : NO Outreach Outcome/Action Unable to reach patient: Left message Did you use a PCP flex slot to schedule this appointment? N/A Reason for Outreach Care Gap or Scheduling/Wellness visits Payer: Payor: [employer] / Plan: [employer] HMO / Product Type: HMO / Care Gap Reviewed:: Colorectal Cancer Screening Diabetic Eye Exam HBA1C Flu vaccine Reminder: Reminder note to check Health Maintenance for items below Health Maintenance items due: PNEUMOCOCCAL(1 - PCV) Never done HIV SCREENING Never done BP CONTROLLED (<130/80) Never done DTAP,TDAP,TD(1 - Tdap) Never done HEPATITIS B(3 of 3 - Hep B Twinrix 3-dose series) due on 05/26/2017 COLORECTAL CANCER SCREENING Never done DILATED RETINAL EXAM due on 01/27/2020 HBA1C due on 02/04/2022 INFLUENZA(1) due on 03/20/2022 Message Sent to Practice: No Navigation Signature: Sanjuanita Saavedra MA May 02, 2022 11:51 AM documented in this encounterMartin Memorial Hospital08-08-2022 Instructions* Patient Instructions* Gucci Escobar - 02/24/2022 3:10 PM EDT Diabetes Foot Care Instructions When you have diabetes, proper foot care is very important. Poor foot care may lead to amputation of a foot or leg. As a person with diabetes, you are more vulnerable to foot problems, because diabetes can damage your nerves and reduce blood flow to your feet. Here are some diabetes foot care tips to follow: Wash and Dry Your Feet Daily Use mild soaps Use warm water Pat your skin dry; do not rub. Thoroughly dry your feet. After washing, use lotion on your feet to prevent cracking. Do not put lotion between your toes. Examine Your Feet Each Day Check the tops and bottoms of your feet. Have someone else look at your feet if you cannot see them. Check for dry, cracked skin. Look for blisters, cuts, scratches, or other sores. Check for redness, increased warmth, or tenderness when touching any area of your feet. Check for ingrown toenails, corns, and calluses. If you get a blister or sore from your shoes, do not pop it. Apply a bandage and wear a differentpair of shoes. Take Care of Your Toenails Cut toenails after bathing, when they are soft. Cut toenails straight across and smooth with a nail file. Avoid cutting into the corners of toes. Do not cut cuticles. If you have neuropathy (or decreased sensation in your feet) a photoengraving apprentice should always cut your toenails. Be Careful When Exercising Walk and exercise in comfortable shoes. Do not exercise when you have open sores on your feet. Protect Your Feet With Shoes and Socks Never go barefoot. Always protect your feet by wearing shoes or hard-soled slippers or footwear. Avoid shoes with high heels and pointed toes. Avoid shoes that expose your toes or heels (such as open-toed shoes or sandals). These types of shoes increase your risk for injury and potential infections. Try on new footwear with the type of socks you usually wear. Do not wear new shoes for more than an hour at a time. Change your socks daily. Look and feel inside your shoes before putting them on to make sure there are no foreign objects orrough areas. Avoid tight socks. Wear natural-fiber socks (cotton, wool, or a cotton-wool blend). Wear special shoes if your health care provider recommends them. Wear shoes/boots that will protect your feet from various weather conditions (cold, moisture, etc.). Make sure your shoes fit properly. If you have neuropathy (nerve damage), you may not notice that your shoes are too tight. Perform the footwear test described below. Footwear Test Use this simple test to see if your shoes fit correctly: Stand on a piece of paper. (Make sure you are standing and not sitting, because your foot changes shape when you stand.) Trace the outline of your foot. Trace the outline of your shoe. Compare the tracings: Is the shoe too narrow? Is your foot crammed into the shoe? The shoe should be at least 1/2 inch longer than your longest toe and as wide as your foot. Proper Shoe Choices The following types of shoes are best for people with diabetes Closed toes and heels Leather uppers without a seam inside At least 1/2 inch extra space at the end of your longest toe Inside of shoe should be soft with no rough areas Outer sole should be made of stiff material Shoes should be at least as wide as your feet Tips for Foot Care in Diabetes Don't wait to treat a minor foot problem if you have diabetes. Follow your health care provider's guidelines and first aid guidelines. Report foot injuries and infections to your health care provider immediately. Check water temperature with your elbow, not your foot. Do not use a heating pad on your feet. Do not cross your legs. Do not self-treat your corns, calluses, or other foot problems. Go to your health care provider or photoengraving apprentice to treat these conditions. documented in this encounterMartin Memorial Hospital08-08-2022 History of Present illness Narrative* Gucci Escobar - 02/24/2022 2:53 PM EDT Consultation requested by Dr. Meng for an opinion regarding charcot of right foot. My final recommendations will be communicated back to the requesting physician by way of shared Medical recordor letter to requesting physician via US mail. Initial Office Visit Subjective: This 46 year old male presents to clinic for diabetic foot check. Patient has the following complaints: charcot of right foot. Patient presents to clinic for evaluation of right lower extremity. He has chronic charcot of rightfoot since 2014. He has seen both Dr Will and Dr. Childs for the charcot. Dr. Will had recommended [place] boot but he stopped using because it rubbed on his knee. He did also see Dr. Childs who re commended AFO. He states that when he used the afo, he states that the afo in his diabetic shoe tends to irritate his toenails. Patient is not currently wearing the afo. He is using diabetic shoe. He has history of left bka complicated by MRSA. He had bka following open fracture of left ankle. Patient admits to being diabetic for 35 years now. Patient +B/T/N in feet at this time. Patient -pain in legs when walking. No other pedal complaints at this time. No change in medications or medical history since last visit. Patient currently smokes 1.5 packs of cigarettes/day. PAIN EVALUATION No data found in the last 1 encounters. Hemoglobin A1C (%) Date Value 11/05/2021 10.1 06/11/2019 11.3 05/27/2019 10.5 09/19/2014 11.9 02/19/2013 11.9 Hemoglobin A1c (%) Date Value 05/21/2016 >14 01/25/2016 12.7 Hemoglobin A1C (POCT) (%) Date Value 09/29/2018 13.7 11/11/2016 13.4 PCP: Jah Mas MD PAST MEDICAL HISTORY Diagnosis Date Cellulitis of left lower extremity 07/20/2019 Charcot's joint of right foot 11/11/2016 Chronic bilateral low back pain without sciatica Closed trimalleolar fracture of left ankle 05/23/2019 Depression with anxiety 01/25/2016 Diabetic polyneuropathy associated with type 1 diabetes mellitus ([facility]) 01/25/2016 [place], on disability. Dx 10 y.o. DKA (diabetic ketoacidosis) ([facility]) 08/2014, 10/2017 GERD (gastroesophageal reflux disease) 01/25/2016 Hep C w/o coma, chronic ([facility]) 09/29/2018 Overview: In Past History of drug abuse in remission ([facility]) 09/29/2018 History of ischemic colitis 03/14/2016 History of left below knee amputation ([facility]) 07/14/2019 Hyperlipidemia 02/14/2017 Hypertension Hypothyroidism 11/06/2021 IVDU (intravenous drug user) 05/27/2019 Lactose intolerance 07/30/2016 Moderate protein-calorie malnutrition ([facility]) 11/01/2021 Osteomyelitis of left tibia/BKA with MRSA ([facility]) 11/06/2021 Pancreatitis 08/2014 Perianal abscess 08/03/2018 PVD (peripheral vascular disease) ([facility]) 01/10/2020 Tobacco abuse 05/27/2019 Current Outpatient Medications Medication Sig lisinopril (ZESTRIL, PRINIVIL) 20 mg tablet Take 1 tablet by mouth once daily. levothyroxine (SYNTHROID) 25 mcg tablet Take 1 tablet by mouth every morning. sertraline (ZOLOFT) 50 mg tablet Take 1 tablet by mouth once daily. LANTUS SOLOSTAR U-100 INSULIN 100 unit/mL (3 mL) Inject 15 Units subcutaneously twice daily. pantoprazole DR (PROTONIX) 40 mg tablet Take 1 tablet by mouth once daily. flash glucose sensor (FREESTYLE MAIKEL 14 DAY SENSOR) kit Check 8 times per day. amitriptyline (ELAVIL) 25 mg tablet Take 1 tablet by mouth daily at bedtime. gabapentin (NEURONTIN) 300 mg capsule Take 1 capsule by mouth four times daily for 180 days. insulin lispro (HUMALOG KWIKPEN) 100 unit/mL inpn Inject 6 Units subcutaneously w MEALS. No current facility-administered medications for this visit. ALLERGIES No Known Allergies PAST SURGICAL HISTORY Procedure Laterality Date AMPUTATION LOW LEG THRU TIB/FIB Left 06/24/2019 Left BKA COLONOSCOPY 03/17/2016 resolved colitis, presumed ischemic EGD 11/02/20172013 IR VASCULAR ACCESS TEAM PICC INSERTION RADIO 06/17/2019 REVISION OF LOWER LEG Left 07/06/2020 I&D, revision of BKA stump REVISION OF LOWER LEG Left 09/19/2021 I&D stump REVISION OF LOWER LEG Left 01/27/2020 I&D stump FAMILY HISTORY Problem Relation Age of Onset Hypertension Mother Diabetes Mother Stroke Mother Heart Mother CHF Cataract Mother Hypertension Father COPD Father Emphysema Father Social History Tobacco Use Smoking status: Every Day Packs/day: 1.00 Years: 35.00 Pack years: 35.00 Types: Cigarettes Smokeless tobacco: Never Vaping Use Vaping Use: Never used Substance Use Topics Alcohol use: Not Currently Comment: socially Drug use: Yes Types: Marijuana Comment: currently smokes marijuana 2 times a day. 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 REVIEW OF SYSTEMS GENERAL: Negative for Malaise, significant weight loss, fever RESPIRATORY: Negative for cough, wheezing and shortness of breath CARDIOVASCULAR: Negative for chest pain, leg swelling and palpitations GI: Negative for abdominal discomfort, blood in stools or black stools and change in bowel habits : Negative for dysuria, frequency and incontinence MUSCULOSKELETAL: Negative for joint pain or swelling, back pain, and muscle pain. SKIN: Negative for lesions, rash, and itching. HEMATOLOGY/LYMPHOLOGY Negative for prolonged bleeding, bruising easily, and swollen nodes. ENDOCRINE: Negative for cold or heat intolerance, polyuria, polydipsia and goiter. NEURO: negative The remainder of the review of systems is noncontributory. Objective: Patient presents to clinic ambulating in diabetic shoe Constitutional: Pt is a well developed 46 year old male who is alert, oriented, cooperative and in no apparent distress. Eyes: Following during examination. No redness or drainage. Respiratory: RR normal and nonlabored. Even breathing. No evidence of distress. Psychology: Patient is engaged during conversation. Normal affect and mood. Does not appear depressed or anxious. Vasc: DP and PT pulses faintly palpable left. He has left bka. Skin temperature is warm to warm proximal to distal right. There is no edema or varicosities noted. Hair growth decreased. Neuro: Protective sensation is absent to the foot and toes when tested with the 5.07 SWM right. Vibratory sensation is absent at the hallux right. + Significant neurological defecits. Derm: Inspection and palpation performed. Nails 1-5 right are discolored-yellow, thick, crumbly, dystrophic and with subungal debris. Skin is of normal turgor and texture. Hyperkeratosis noted to notpresent. NO ulcerations, scars, verruca or other lesions noted. Ortho: Ankle joint DF is decreased with the knee extended and decreased with knee flexed. No pain or crepitus noted. STJ, MTJ ROM are full and free of pain or crepitus. Muscle strength is 5/5 for dorsiflexors, plantarflexors, inverters, everters. Stable charcot noted to right foot Xrays from 2017 and xrays taken today. Stable charcot Assessment: (S88.119A) Below-knee amputation (HCC) (primary encounter diagnosis) (M14.671) Charcot's joint of right foot (E11.49) Other diabetic neurological complication associated with type 2 diabetes mellitus (HCC) (B35.1) Onychomycosis (R09.89) Diminished pulses in lower extremity Plan: 1. Patient was seen and evaluated. 2. Patient was instructed on the continued importance of diabetic foot care along with proper diet and keeping their blood sugar under control to prevent complications. Instructions given both oral and written. 3. Discussed charcot. It is stable compared to 2017. Will order afo. 4. Will get baseline pvr 5. Toenails 1-5 right debrided in length and thickness. Q7 modifer 6. Follow-up in 3 months Gucci Escobar DPM * Kira Estrada RN - 02/24/2022 2:25 PM EDT AMB ROOMING INTAKE FLOWSHEET DATA Risk Screening Do you have concerns about personal safety or safety in the home?: No Patient presents with: Right Foot - New Patient, Foot Deformity Patient c/o charcot to R foot. Has seen podiatry at [facility] in the past. History of L BKA. Originally done in 2019 and revised several times after due to infection. documented in this encounterMartin [facility] Hospital08-08-2022 History of Present illness Narrative* RT Ras(R) - 02/24/2022 2:10 PM EDT Radiology Service Progress Note PATIENT NAME: Tori Cantor DATE OF SERVICE: February 24, 2022 TIME: 2:11 PM PATIENT IDENTITY VERIFICATION COMPLETED USING TWO (2) IDENTIFIERS: Name and Date of confirmedby patient verbally. FALL SCREENING: Has the patient had 2 falls in the last year or 1 fall with injury or currently using an Ambulatory Assistive Device (Walker, Cane, Wheelchair, Crutches, etc.)? Yes, Patient High Riskfor Falls What interventions were put in place to prevent falls during this visit? Increased Observations by Caregivers and Pt. in his own wheelchair. PATIENT GENDER DATA: Male PATIENT RELEVANT IMPLANT DATA REVIEWED: Not Applicable RADIOLOGY DEPARTMENT: General X-ray: Exam(s) Completed: Lower Extremity X- Ray(s): Foot, Right PERIPHERAL IV DATA: Not applicable SIGNED BY: Bhargav Gimenez RT(R) February 24, 2022 2:11 PM documented in this encounterMartin Memorial Hospital07-21-2022 History of Present illness Narrative* Sanjuanita Saavedra MA - 02/06/2022 10:54 AM EDT POPULATION HEALTH NAVIGATION OUTREACH Action/FYI Patient is due for colonoscopy, JAGJIT, and A1C lmtcb Pt identified by name and : NO Outreach Outcome/Action Unable to reach patient: Left message Did you use a PCP flex slot to schedule this appointment? N/A Reason for Outreach Care Gap or Scheduling/Wellness visits Payer: Payor: JARETH [employer] / Plan: [employer] HMO / Product Type: HMO / Care Gap Reviewed:: Colorectal Cancer Screening Diabetic Eye Exam HBA1C Reminder: Reminder note to check Health Maintenance for items below Health Maintenance items due: PNEUMOCOCCAL(1 - PCV) Never done HIV SCREENING Never done BP CONTROLLED (<130/80) Never done DTAP,TDAP,TD(1 - Tdap) Never done HEPATITIS B(3 of 3 - Hep B Twinrix risk 3-dose series) due on 05/26/2017 COLORECTAL CANCER SCREENING Never done DILATED RETINAL EXAM due on 01/27/2020 HBA1C due on 02/04/2022 Message Sent to Practice: No Navigation Signature: Sanjuanita Saavedra MA February 06, 2022 10:54 AM documented in this encounterMartin Memorial Hospital07-20-2022 History of Present illness Narrative* Jah Mas MD - 02/05/2022 4:30 PM EDT Consult This note was created using [employer]. Subjective Tori Cantor is a 46 year old male I am seeing for the first time. He was accompanied by a male caregiver. He has brittle diabetes mellitus and was not under the care of endocrinology at this time. He was referred but travel was limited. [facility], and was given some form of brace for his Charcot right foot. He is status post left BKA from osteomyelitis, cellulitis, MRSA infections in the past. He's had several stump infections and surgeries. He transferred care here from a visiting physician group. His main concern was ongoing neuropathic pain and insomnia. His depression and anxiety improved with sertraline. Review of Systems Constitutional: Negative. Respiratory: Negative. Cardiovascular: Negative. Gastrointestinal: Negative. Genitourinary: Negative. Musculoskeletal: Negative. Neurological: See HPI. Psychiatric/Behavioral: Positive for sleep disturbance. Negative for dysphoric mood, self-injury and suicidal ideas. The patient is not nervous/anxious. ACTIVE PROBLEM LIST Hypertension Gerd (Gastroesophageal Reflux Disease) Microalbuminuria History of Diabetic Gastroparesis Diabetic Polyneuropathy Associated With Type 1 Diabetes Mellitus (Hcc) Depression With Anxiety Charcot's Joint of Right Foot Hyperlipidemia Hep C W/O Coma, Chronic ([facility]) History of Drug Abuse in Remission ([facility]) Tobacco Abuse Nicotine use disorder, F17.2 History of Left Below Knee Amputation ([facility]) Osteomyelitis of left tibia/BKA with MRSA ([facility]) Hypothyroidism PAST MEDICAL HISTORY Diagnosis Date Cellulitis of left lower extremity 07/20/2019 Charcot's joint of right foot 11/11/2016 Chronic bilateral low back pain without sciatica Closed trimalleolar fracture of left ankle 05/23/2019 Depression with anxiety 01/25/2016 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) 01/25/2016 [place], on disability. Dx 10 y.o. DKA (diabetic ketoacidosis) ([facility]) 08/2014, 10/2017 GERD (gastroesophageal reflux disease) 01/25/2016 Hep C w/o coma, chronic ([facility]) 09/29/2018 Overview: In Past History of drug abuse in remission ([facility]) 09/29/2018 History of ischemic colitis 03/14/2016 History of left below knee amputation (HCC) 07/14/2019 Hyperlipidemia 02/14/2017 Hypertension Hypothyroidism 11/06/2021 IVDU (intravenous drug user) 05/27/2019 Lactose intolerance 07/30/2016 Osteomyelitis of left tibia/BKA with MRSA ([facility]) 11/06/2021 Pancreatitis 08/2014 Perianal abscess 08/03/2018 PVD (peripheral vascular disease) ([facility]) 01/10/2020 Tobacco abuse 05/27/2019 PAST SURGICAL HISTORY Procedure Laterality Date AMPUTATION LOW LEG THRU TIB/FIB Left 06/24/2019 Left BKA COLONOSCOPY 03/17/2016 resolved colitis, presumed ischemic EGD 11/02/20172013 IR VASCULAR ACCESS TEAM PICC INSERTION RADIO 06/17/2019 REVISION OF LOWER LEG Left 07/06/2020 I&D, revision of BKA stump REVISION OF LOWER LEG Left 09/19/2021 I&D stump REVISION OF LOWER LEG Left 01/27/2020 I&D stump Social History Tobacco Use Smoking status: Current Every Day Smoker Packs/day: 1.00 Years: 35.00 Pack years: 35.00 Types: Cigarettes Smokeless tobacco: Never Used Vaping Use Vaping Use: Never used Substance Use Topics Alcohol use: Not Currently Comment: socially Drug use: Yes Types: Marijuana Comment: currently smokes marijuana 2 times a day. 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 Current Outpatient Medications Medication Sig lisinopril (ZESTRIL, PRINIVIL) 20 mg tablet Take 1 tablet by mouth once daily. levothyroxine (SYNTHROID) 25 mcg tablet Take 1 tablet by mouth every morning. sertraline (ZOLOFT) 50 mg tablet Take 1 tablet by mouth once daily. gabapentin (NEURONTIN) 300 mg capsule Take 1 capsule by mouth four times daily for 180 days. LANTUS SOLOSTAR U-100 INSULIN 100 unit/mL (3 mL) Inject 15 Units subcutaneously twice daily. insulin lispro (HUMALOG KWIKPEN) 100 unit/mL inpn Inject 6 Units subcutaneously w MEALS. pantoprazole DR (PROTONIX) 40 mg tablet Take 40 mg by mouth once daily. ferrous sulfate 325 mg (65 mg iron) tablet Take 325 mg by mouth once daily. (Patient not taking: Reported on 02/05/2022 ) No current facility-administered medications for this visit. Objective BP 132/88 (BP Site: Left Arm, BP Position: Sitting, BP Cuff Size: Large Adult) Pulse 88 Temp 36.3 C (97.4 F) (Temporal Artery) Resp 16 Wt 68.9 kg (151 lb 12.8 oz) BMI 22.42 kg/m Physical Exam Constitutional: General: He is not in acute distress. HENT: Head: Normocephalic. Eyes: General: No scleral icterus. Conjunctiva/sclera: Conjunctivae normal. Cardiovascular: Rate and Rhythm: Normal rate and regular rhythm. Heart sounds: No murmur heard. No gallop. Pulmonary: Effort: Pulmonary effort is normal. Breath sounds: Normal breath sounds. Abdominal: Palpations: Abdomen is soft. Tenderness: There is no abdominal tenderness. Musculoskeletal: Right lower leg: No edema. Comments: Left BKA stump clean, no wound or drainage. Neurological: Mental Status: He is alert. Feet:Shoes and socks removed. Right foot with no ulcers, calluses, abnormal pulses Decreased right,not sensitive to monofilament in toes, foot, ankle, and lower leg. Charcot deformity right foot. Assessment and Plan 1. Special screening for malignant neoplasms, colon - ICD9: V76.51, ICD10: Z12.11 (primary diagnosis) He had seen Dr. Tori Terrazas in the past. - CONSULT TO GASTROENTEROLOGY 2. Charcot's joint of right foot - ICD9: 094.0, 713.5, ICD10: M14.671 He will transfer to [facility] podiatry. - CONSULT TO PODIATRY 3. Depression with anxiety - ICD9: 300.4, ICD10: F41.8 Improved. - SERTRALINE 50 MG TABLET. Continued. - AMITRIPTYLINE 25 MG TABLET. Shared Medical Decision Making was done: Medication: amitriptyline. Benefits: Medication may help mood, neuropathy, pain in the fpc. Risks: Possible side effects were discussed. Possible interactions: n/a. Warnings: sedation. Options: increase sertraline. 4. 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) - ICD9: 250.61, 357.2, ICD10: E10.42 poorly controlled - He declined ENDOCRINOLOGY local referral. He was using a Maikel and had a sensor on his arm. - LANTUS SOLOSTAR U-100 INSULIN 100 UNIT/ML (3 ML) SUBCUTANEOUS PEN - FREESTYLE MAIKEL 14 DAY SENSOR KIT - AMITRIPTYLINE 25 MG TABLET - BASIC METABOLIC PNL - HGB A1C 5. Primary hypertension - ICD9: 401.9, ICD10: I10 - fair control - Continue current medication(s) - Reviewed risks of HTN and principles of treatment - LISINOPRIL 20 MG TABLET 6. Hypothyroidism, unspecified type - ICD9: 244.9, ICD10: E03.9 - continue current dose of Synthroid - LEVOTHYROXINE 25 MCG TABLET 7. Gastroesophageal reflux disease, unspecified whether esophagitis present - ICD9: 530.81, ICD10: K21.9 Controlled. - PANTOPRAZOLE 40 MG TABLET,DELAYED RELEASE 8. Hep C w/o coma, chronic (HCC) - ICD9: 070.54, ICD10: B18.[address] Terrazas. Request previous GI records. - CONSULT TO GASTROENTEROLOGY - HEP B SURF AB QUAL - HEPATITIS A ANTIBODY, IGG 9. Encounter for screening for HIV - ICD9: V73.89, ICD10: Z11.4 - HIV 1 2 COMBO(AG/AB),WITH REFLEX TO DIFFERENTIATION Jah Mas MD * Fan Rasmussen LPN - 02/05/2022 3:55 PM EDT TR OPEN ACCESS QUESTIONNAIRE 1. Are you currently having any new or unusual stomach/gastrointestinal issues at this time such asconstipation, diarrhea, abdominal pain, rectal bleeding etc?Yes / constipation, abdominal pain 2. Do you have any difficulty swallowing? No 3. Do you have any implanted devices such as a defibrillator, pacemaker, cardiac stents or deep brain stimulator? No 4. Do you take any Blood thinners such as Coumadin, Plavix, Xarelto, Eliquis, Brilinta or any otherblood thinner? No 5. Do you have any new or past cardiac (heart) or pulmonary (lung) issues? No 6. Do you currently use any oxygen? No 7. Have you been hospitalized in the past 6 weeks? No 8. Have you had difficulty with anesthesia previously re: Difficult intubation? No Other difficulty or allergic reaction to anesthesia other than post op N/V? No 9. Are you on dialysis? No 10. Do you have any bleeding disorders such as hemophilia or Factor 5? No 11. Are you an Insulin Dependent Diabetic? Yes: insulin dependent IF ANY OF THE TOP ELEVEN QUESTIONS ARE ANSWERED YES PLEASE SCHEDULE THE PATIENT FOR A CONSULT. advised 12. Is the patient's BMI 40 or greater? No:Body mass index is 22.42 kg/m .. 13. Do you take any narcotics or anti-Anxiety medications? No 14. Do you use any illegal or recreational drugs including marijuana? Yes / marijuana once daily 15. Any alcohol use: YES: What type of alcohol, how much and how often do you drink? : 2-3 12 ounces beers monthly 16. Have you been diagnosed with chronic liver disease such as hepatitis or cirrhosis? Yes / Hepatitis C 17. Do you have a seizure disorder? No 18. Do you have ulcerative colitis or Crohn's disease? No 19. Are you or could you be ? No 20. Any other important health information we should be made aware of prior to your colonoscopy? No To be completed by LIP: Did patient have MAC anesthesia with a previous endoscopy procedure? No Patient appropriate for Open Access Colonoscopy: Yes: appropriate for Open Access Procedure Checklist: Prior to closing the encounter: Complete questionnaire: Yes Confirm Prep order has been Ordered/Pended: Yes. ? Patient's procedure could be delayed if not given the script for the prep. Please ensure the prepis escripted to pharmacy or printed. Instructions for the prep will print upon filing or pending this smartset. Please send all open access questionnaires to [facility] Sched Pool #[id number] documented in this encounterMartin Memorial Hospital06-13-2022 Miscellaneous Notes* Telephone Encounter - Kimberly Inman LPN - 12/30/2021 12:56 PM EDT Pt called in. Appt scheduled. Kimberly Inman LPN * Telephone Encounter - Di Mccarty LPN - 12/30/2021 11:38 AM EDT Left a message for pt to call the office and ask to speak to a triage nurse. Di Mccarty LPN * Telephone Encounter - Margarita Parisi APRN.CNP - 12/27/2021 3:19 PM EDT Due for follow-up in January, needs to be with Dr. Chace Parisi APRN.CNP * Telephone Encounter - Zoe Castaneda LPN - 12/27/2021 1:16 PM EDT Last seen GRID[employer] MACHINE OPERATOR 12/11/21. Next appt not arranged. Due? * Telephone Encounter - Rebecca Parada Pss - 12/27/2021 1:14 PM EDT Patient has been identified by name and date of : Yes Pending Prescriptions Disp Refills LISINOPRIL 20 MG TABLET 90 tablet 3 Sig: Take 1 tablet by mouth once daily. MANDY: No LEVOTHYROXINE 25 MCG TABLET 90 tablet 3 Sig: Take 1 tablet by mouth every morning. MANDY: No SERTRALINE 50 MG TABLET 30 tablet 1 Sig: Take 1 tablet by mouth once daily. MANDY: No RX INSTRUCTIONS: Patient aware RX will be sent to pharmacy. No need to notify patient. Rebecca Parada Pss documented in this encounterMartin Memorial Hospital06-13-2022 History of Present illness Narrative* Rafia Dennison Population Health Navigator - 12/30/2021 10:02 AM EDT POPULATION HEALTH NAVIGATION OUTREACH Action/FYI Vm left for a return call Due for follow up in January, colonoscopy and JAGJIT Pt identified by name and : NO Outreach Outcome/Action Unable to reach patient: Left message Did you use a PCP flex slot to schedule this appointment? N/A Reason for Outreach Care Gap or Scheduling/Wellness visits Payer: Payor: JARETH [employer] / Plan: JARETH MEYER HMO / Product Type: HMO / Care Gap Reviewed:: Follow-up appointment Controlling Blood Pressure Colorectal Cancer Screening Diabetic Eye Exam Reminder: Reminder note to check Health Maintenance for items below Health Maintenance items due: PNEUMOCOCCAL(1 - PCV) Never done HIV SCREENING Never done BP CONTROLLED (<130/80) Never done DTAP,TDAP,TD(1 - Tdap) Never done HEPATITIS B(3 of 3 - Hep B Twinrix risk 3-dose series) due on 05/26/2017 DIABETIC FOOT EXAM due on 04/02/2019 COLORECTAL CANCER SCREENING Never done DILATED RETINAL EXAM due on 01/27/2020 Message Sent to Practice: No Navigation Signature: Rafia Dennison Population Health Navigator December 30, 2021 10:02 AM documented in this encounterMartin Memorial Hospital05-25-2022 History of Present illness Narrative* Margarita Parisi APRN.CNP - 12/11/2021 4:20 PM EDT This Team Access Model visit is a phone encounter. It required patient-provider interaction for themedical decision making as documented below. Patient agrees to the visit: Yes Patient Location: [place] Patient was contacted today for medication follow-up. However he reports for the past 3 days he hasbeen experiencing abdominal pain feels like someone is squeezing my insides. Now having chest pain and feels bloated, its pushing on my lungs. Recommend ER evaluation. His FINE ARTS INSTRUCTOR is present and willdrive [facility]. Patient declined EMS transport. He will call for follow-up once discharged Margarita Parisi APRN.CNP documented in this encounterMartin Memorial Hospital04-20-2022 Instructions* Patient Instructions* Margarita Parisi APRN.CNP - 11/06/2021 2:59 PM EDT Recommend rescheduling appointment with Dr. Terrazas Depression/Anxiety This medicine will take 4-6 weeks to take full effect. If there is no improvement after 2-3 weeks, call me so that we can gradually increase the dose. Side effects usually subside within 2 weeks, if they are still bothersome after this time please call me. Do not abrubtly stop this medicine. Many symptoms, which typically occurs within days of abruptly stopping this medication, may include dizziness, nausea, fatigue, muscle aches, chills, anxiety, and irritability. Although these symptoms are not dangerous and usually dissipate over one to two weeks, they can be quite distressing and uncomfortable. Make sure you are using effective control while taking this medication. Let us know if you may be . Avoid [id number]-kvo-zatbynk [facility] [place]art, Ephedra, Meridia, and others while on this medication. If you have any thoughts of suicide please call me or go to the Emergency Dept immediately. documented in this encounterMartin Memorial Hospital04-20-2022 History of Present illness Narrative* Margarita Parisi APRN.CNP - 11/06/2021 2:40 PM EDT CC: Patient presents with: [facility] HPI Tori Cantor is a 46 year old male who presents today for above Previous PCP: Dr. Garcia/Teena Walsh APRN [facility]. LUTS Patient reports urinary frequency, hesitancy, urgency, decreased stream and nocturia. Requesting referral to urology. 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) Diabetes: Home blood sugar readings: use freestyle maikel, does not do any finger sticks. He did notbring readings or meter today. Unable to recall current blood sugar readings. HgbA1c 10.1, patient states this is actually really good for him as it is usually around 13. Hypoglycemia: No He is compliant with medication(s) and is tolerating med(s) without any side effects. 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 No desire to quit at this time Hypertension Patient states his blood pressure has not been well controlled the last few times he has had it checked Taking all medications as prescribed: Yes Side effects: No Home BP's: No Denies: chest pain, palpitations, dyspnea and peripheral edema. Last 3 Encounter BP Readings: Date: BP: 11/06/2021 144/88 07/20/2019 124/75 06/21/2019 138/98 History of diabetic gastroparesis Currently taking Protonix. If he forgets to take he will vomit undigested food. Hep C w/o coma, chronic (HCC) He was supposed to follow-up with GI Dr. Terrazas but unable to make it to appointment. He has never been treated for Hepatitis C, unsure when levels were last checked. Reports bilateral flank pain, worried it is his liver. Denies jaundice, discolored urine or stool 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) Patient was admitted to [facility] in September for left residual limb cellulitis. Diagnosed with osteomyelitis, wound cultures were positive for MRSA. He underwent debridement and revision of left lower extremity stump on 09/19/21. Discharged home with PICC line, on Meropenem until 10/31. He was seeing orthopedi cs after discharge however according to patient at his last visit a week ago he was told he no longer needed to follow-up. He was also advised to follow-up in wound center but has not been able to keep appointments due to transportation issues. At one point he was told that he would need a wound vac but this never happened for unclear reasons. He currently has a small open area left stump with minimal drainage. Very painful but all pain medications were stopped and he smokes marijuana instead which he feels helps better. No redness or swelling at this time. Depression with anxiety Patient has a history of depression and anxiety. He did have psychiatrist through [facility] however stopped going a few years ago. Treated with multiple meds including Cymbalta but were ineffective. Admits to history of suicide attempts through drug OD years ago. Still has suicidal thoughts noam ecially in light of all of his medical problems but denies intent or plan. Panic attacks: No Sleep: difficulty staying asleep, difficulty falling asleep Alcohol use: does not drink any alcohol Drug use: Yes: Marijuana Current Appetite: poor Support: None Counseling: Yes but no interest in counseling or therapy including psychiatric referral at this time. CP PHQ9 11/06/2021 Little interest or pleasure 3 - Nearly every day Feeling down, depressed, hopeless 3 - Nearly every day Trouble falling or staying asleep, sleeping too much 3 - nearly every day Feeling tired, having little energy 2 - More than half the days Poor appetite or overeating 3 - Nearly every day Feeling bad about yourself, failure or you have let yourself/family down 3 - Nearly every day Trouble concentrating on things 3 - Nearly every day Moving or speaking so slowly, or fidgety or restless 3 - Nearly every day Thoughts that you would be better off , or of hurting yourself in some way 3 - Nearly every day How difficult have these problems made things Very difficult Interpretation of Total Score 20-27 Severe depression HARPAL-7 ANXIETY SCALE 11/06/2021 FEELING NERVOUS,ANXIOUS,OR ON EDGE 3 Nearly every day NOT BEING ABLE TO STOP OR CONTROL WORRYING 0 Not at all sure WORRYING TOO MUCH ABOUT DIFFERENT THINGS 2 Over half the days TROUBLE RELAXING 2 Over half the days BEING SO RESTLESS THAT IT'S HARD TO SIT STILL 1 Several days BEING EASILY ANNOYED OR IRRITABLE 2 Over half the days FEELING AFRAID IF SOMETHING AWFUL MIGHT HAPPEN 2 Over half the days GAD7 SCORE 12 IF YOU CHECKED OFF ANY PROBLEMS Somewhat difficult History of drug abuse in remission History of IV drug abuse, cocaine and meth. Has been clean for 3 years except does smoke marijuana at least twice a day. Hypothyroidism Patient is not sure when he was diagnosed, states he was just prescribed levothyroxine one day. Taking daily on an empty stomach. Anemia Patient was advised by PCP in September to go to the ER due to hgb of 5.7. he was asymptomatic, CBC redrawn and hgb was actually 11.6 so no further intervention was done. However his PCP started him on iron and he is not sure why. States he never took due to taking too many medications. REVIEW OF SYSTEMS General: no fevers, no chills, no night sweats, no change in appetite, no change in energy and no significant changes in weight Respiratory: no cough, no wheezing, no shortness of breath Cardiovascular: no chest pain, no chest pressure, no palpitations and no swelling PAST MEDICAL HISTORY Diagnosis Date Cellulitis 07/20/2019 Cellulitis of left lower extremity 07/20/2019 Closed fracture of left ankle 06/02/2019 Closed trimalleolar fracture of left ankle 06/21/2019 Diabetes ([facility]) DKA (diabetic ketoacidosis) ([facility]) 08/2014 Hyperglycemia 05/27/2019 Hypertension IVDU (intravenous drug user) 05/27/2019 Lactose intolerance 07/30/2016 Left ankle joint deformity 05/27/2019 Pancreatitis 08/2014 Tobacco abuse 05/27/2019 Trimalleolar fracture of left ankle PAST SURGICAL HISTORY Procedure Laterality Date IR VASCULAR ACCESS TEAM PICC INSERTION RADIO 06/17/2019 NONE PAST SURGICAL HISTORY OF Left 06/24/2019 L Lower Leg Amputation ALLERGIES Patient has no known allergies. MEDICATIONS ferrous sulfate 325 mg (65 mg iron) tablet Take 325 mg by mouth once daily. levothyroxine (SYNTHROID) 25 mcg tablet Take 25 mcg by mouth every morning. gabapentin (NEURONTIN) 300 mg capsule Take 300 mg by mouth four times daily. LANTUS SOLOSTAR U-100 INSULIN 100 unit/mL (3 mL) Inject 15 Units subcutaneously twice daily. sertraline (ZOLOFT) 50 mg tablet Take 1 tablet by mouth once daily. lisinopril (ZESTRIL, PRINIVIL) 20 mg tablet Take 1 tablet by mouth once daily. traZODone (DESYREL) 50 mg tablet Take 0.5-1 tablets by mouth daily at bedtime. For sleep insulin lispro (HUMALOG KWIKPEN) 100 unit/mL inpn Inject 6 Units subcutaneously w MEALS. pantoprazole DR (PROTONIX) 40 mg tablet Take 40 mg by mouth once daily. FAMILY HISTORY Problem Relation Age of Onset Hypertension Mother Diabetes Mother Stroke Mother Heart Mother CHF Cataract Mother Hypertension Father COPD Father Emphysema Father Social History Tobacco Use Smoking status: Current Every Day Smoker Packs/day: 1.00 Years: 35.00 Pack years: 35.00 Types: Cigarettes Smokeless tobacco: Never Used Vaping Use Vaping Use: Never used Substance Use Topics Alcohol use: Not Currently Comment: socially Drug use: Yes Types: Marijuana Comment: currently smokes marijuana 2 times a day. 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 PHYSICAL EXAM BP 144/88 Pulse 88 Resp 14 Wt 69.9 kg (154 lb) SpO2 99% BMI 22.74 kg/m Appearance: well dressed well groomed, cooperative and pleasant Behavior: poor eye contact, tense, restless Speech: fluent and coherent and fast Mood: anxious Affect: appropriate Lungs: Lungs clear to auscultation. No wheezing, rhonchi, rales. Heart: RRR without murmur, gallop, or rubs. No ectopy Ext: left BKA- small open wound on residual limb. No drainage, redness or swelling. RLE- Charcot foot. no edema, good distal pulses Health maintenance reviewed with patient: HEPATITIS A(1 of 2 - Risk 2-dose series) Never done ONE PNEUMOVAX PRIOR TO AGE 65 Never done ANNUAL PCP TEAM CHRONIC DISEASE VISIT Never done HIV SCREENING Never done BP CONTROLLED (<130/80) Never done DTAP,TDAP,TD(1 - Tdap) Never done HEPATITIS B(1 of 3 - Risk 3-dose series) Never done DIABETIC FOOT EXAM due on 04/02/2019 COLORECTAL CANCER SCREENING Never done DILATED RETINAL EXAM due on 01/27/2020 HBA1C due on 02/04/2022 URINE ALBUMIN:CREATININE RATIO due on 11/05/2022 LDL CHOLESTEROL due on 11/05/2022 INFLUENZA Completed HEPATITIS C SCREENING Completed COVID-19 VACCINE Completed MENINGOCOCCAL CONJUGATE Aged Out DATA REVIEWED: Outside chart from [facility] ER reviewed. ASSESSMENT/PLAN: 1. 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) - ICD9: 250.61, 357.2, ICD10: E10.42 (primary diagnosis) uncontrolled Poor adherence to plan of care. - Continue current medications. Patient does not wish to make any adjustments at this time - Ophthalmology referral for eval/management of diabetic eye changes - Endocrinology referral for diabetes management - Discussed diabetic education issues of sketch liner diabetic complications, hypoglycemic symptoms, hyperglycemic symptoms, diet, medications- side effects and need for compliance, importance of exercise, use and side effects of insulin and importance of annual examinations with Opthalmology with patient. - CONSULT TO ENDOCRINOLOGY - CONSULT TO OPHTHALMOLOGY 2. Osteomyelitis of left tibia, unspecified type (HCC) - ICD9: 730.26, ICD10: M86.9 Stressed importance of follow-ups with infectious disease and wound center as instructed. He verbalized understanding and plans on rescheduling appointments 3. Depression with anxiety - ICD9: 300.4, ICD10: F41.8 - Reviewed concept of neurochemical imbalance [facility] depression/anxiety, treatment options and benefits of counseling in combination with medication. Also reviewed benefits of sleep hygeine, diet and exercise - Start Zoloft 50 mg daily - Patient declined referral to behavioral director social service for resources and counseling - Follow-up phone call in 3 weeks or sooner as needed - Instructed patient to contact office or [id number] after-hours promptly should condition worsen or any new symptoms appear. - Counseling Center [facility] and after hours crisis line 4. Insomnia, unspecified type - ICD9: 780.52, ICD10: G47.00 Secondary to depression and anxiety. Start Trazodone, see orders 5. Lower urinary tract symptoms (LUTS) - ICD9: 788.99, ICD10: R39.9 - CONSULT TO UROLOGY - PSA/PROSTSPECAG DIAG 6. Anemia, unspecified type - ICD9: 285.9, ICD10: D64.9 CBC normal. Check iron levels and if normal will discontinue iron - IRON + TIBC - FERRITIN BLD 7. Hypothyroidism, unspecified type - ICD9: 244.9, ICD10: E03.9 - Instructed patient on importance of taking on an empty stomach either first thing in the morning or at bedtime. - check TSH today - continue current dose of Synthroid - TSH BLD 8. Hep C w/o coma, chronic (HCC) - ICD9: 070.54, ICD10: B18.2 Stressed importance of follow-up with hepatology, patient will call to reschedule with Dr. Terrazas - COMP METABOLIC PANEL 9. Charcot's joint of right foot - ICD9: 094.0, 713.5, ICD10: M14.671 - CONSULT TO PODIATRY 10. Primary hypertension - ICD9: 401.9, ICD10: I10 - suboptimal control - Increase Lisinopril to 20 mg daily - Recommended regular aerobic exercise. - Recommend home blood pressure monitoring, to bring results in on next visit - Recheck in 2 months, sooner should new symptoms or problems arise. - Goal of BP <130/80 13. History of diabetic gastroparesis - ICD9: V12.29, ICD10: Z86.39 Continue with Protonix 14. History of drug abuse in remission (HCC) - ICD9: 305.93, ICD10: F19.11 Abstinence including marijuana encouraged Prescription instructions reviewed with patient as applicable. Potential red flag symptoms discussed with the patient. Reviewed appropriate action plan to take if red flag symptoms occur. Patient agreeable to treatment plan. Margarita Parisi APRN.CNP [facility] History of Past illness Narrative* Problem Noted Date Resolved Date Moderate protein-calorie malnutrition 11/01/2021 11/12/2022 Overview: Renewed previous PCP [place] Medicaid CMN enteral nutrition order for Boost 240Cal/8oz;480cal per day; supplier [place], [place] Sepsis 06/09/2019 06/27/2021 Nicotine use disorder, F17.2 05/31/2019 Last Assessment & Plan: Continues to smoke about 1 PPD. No desire to quit at this time IVDU (intravenous drug user) 05/27/2019 Moderate episode of recurrent major depressive d isorder 09/02/2018 09/29/2018 Obesity 02/11/2017 04/05/2018 Lactose intolerance 07/30/2016 02/14/2017 Abdominal pain, right lower quadrant 11/23/2009 01/25/2016 Abdominal pain, left lower quadrant 11/23/2009 01/25/2016 documented as of this encounter (statuses as of 11/13/2022) [facility] History of Present illness Narrative* Morena Israel MA - 10/21/2021 7:49 AM EDT POPULATION HEALTH NAVIGATION OUTREACH Action/FYI Left patient voicemail message to return my call [phone]. Diabetic retinal exam Colorectal cancer screening Patient due for Hgba1c and albumin Patient scheduled for new physical with Margarita Parisi CNP on 11/06/21 to establish care ,Albumin and Hgba1c due but will be ordered during patients physical since patient is new patient Undated PCP field name Inquire about my chart activation Inquire about advance directive Pt identified by name and : NO Outreach Outcome/Action Unable to reach patient: Left message PCP field updated Reason for Outreach Care Gap or Scheduling/Wellness visits Payer: Payor: [employer] AND BLUE [employer]IELD / Plan: [employer] HMO / Product Type: HMO / Care Gap Reviewed:: Colorectal Cancer Screening Diabetic Eye Exam HBA1C Nephropathy (Albumin/Creatinine) Urine Reminder: Reminder note to check Health Maintenance for items below Health Maintenance items due: HEPATITIS A(1 of 2 - Risk 2-dose series) Never done COVID-19 VACCINE(1) Never done ONE PNEUMOVAX PRIOR TO AGE 65 Never done ANNUAL PCP TEAM CHRONIC DISEASE VISIT Never done HIV SCREENING Never done BP CONTROLLED (<130/80) Never done DTAP,TDAP,TD(1 - Tdap) Never done HEPATITIS B(1 of 3 - Risk 3-dose series) Never done URINE ALBUMIN:CREATININE RATIO due on 11/01/2016 LDL CHOLESTEROL due on 11/01/2016 DIABETIC FOOT EXAM due on 04/02/2019 COLORECTAL CANCER SCREENING Never done HBA1C due on 09/11/2019 DILATED RETINAL EXAM due on 01/27/2020 Message Sent to Practice: No Navigation Signature: Morena Israel MA October 21, 2021 9:31 AM documented in this encounter[facility] Evaluation note* Diagnosis Onset Date Resolution Status Leg wound, left acute Wound infection acute Cellulitis August, chronic DM type 1 (diabetes mellitus, type 1) chronic Hypertension chronic Type 1 diabetes, uncontrolled, with neuropathy chronic MRSA (methicillin resistant staph aureus) culture positive resolved [facility] Work Phone: 1(579) 268-626512-21-2019 History of Present illness Narrative* Mariza Medrano RN - 07/09/2019 6:59 PM EST Report called and transfer report/SLICK signed and faxed to [facility]. [facility] set for 2044 facesheet and packet @ desk. Pt is agreeable and ready to go back. * Yahir Luevano DO - 07/09/2019 6:35 PM EST Now with multiple BMs. Patient can be discharged. documented in this encounterSUMNJ Work Phone: 1(237) 891-942012-21-2019 Hospital course Narrative* Yahir Luevano DO - 07/09/2019 6:39 PM EST Hospitalist Discharge Summary Tori Cantor : 1975 Admit date: 07/09/2019 Discharge date: 07/09/2019 Admitting Physician: Yahir Luevano DO Primary Care Physician: Elizabeth Nelson DO Visit Status: Observation Code Status: Full Code Discharge Diagnoses: 1. Severe constipation suspect related to chronic opioid use>>resolved 2. Uncontrolled DM1 with hyperglycemia 3. Diabetic gastroparesis 4. Diabetic Polyneuropathy 5. Chronic pain(sees pain management) 6. OM of left distal tibia s/p L BKA 06/24/19 at [facility] 7. Charcot's joint right foot 8. Depression/anxiety 9. HTN 10. HLP 11. GERD 12. Chronic Hep C 13. Tobacco abuse (active) 14. IVDU Diagnosis Date Colitis 03/14/2016 Depression Diabetes mellitus type 1 with manifestations, uncontrolled (HCC) Gastroparesis GERD (gastroesophageal reflux disease) GERD Hepatitis C In Past Hypertension Hyponatremia 03/14/2016 Neuropathy Osteoarthritis Type I (juvenile type) diabetes mellitus with neurological manifestations, uncontrolled(250.63) Procedures: [facility] Course: Tori is a 44 y.o. male presenting with constipation. Has diabetic gastroparesis and has chronic abdominal pain. Says his constipation has been ongoing for the past 3 weeks, even prior to his amputation at [facility] 2 weeks ago. The patient does take chronic pain meds. Was at SNF and nursing staff had tried multiple different stool softeners and laxatives with no success so sent to ED for further management. Patient was still constipated in ED despite their attempts. Patient admitted and put on bowel regimen(see orders) and constipation resolved. See medication adjustments below in med rec.The patient is discharged in improved and stable condition. Consults: None Discharge Instructions: Diet: DIET CARB CONTROL; Activity: as tolerated Recommended Outpatient Tests: Disposition: Patient discharged in stable condition to SNF. Greater than 30 minutes spent discharging the patient and coming up with patient discharge plan. Vitals: BP 111/71 Pulse 83 Temp 98.1 F (36.7 C) (Temporal) Resp 18 Ht 5' 9 (1.753 m) Wt 187 lb (84.8 kg) SpO2 99% BMI 27.62 kg/m Pulse Ox: SpO2 Av.3 % Min: 97 % Max: 99 % Supplemental O2: General appearance: No apparent distress, appears stated age and cooperative with exam HEENT: Normal cephalic, atraumatic without obvious deformity. Pupils equal, round, and reactive to light. Extra ocular muscles intact. Conjunctivae/corneas clear. Neck: Supple, with full range of motion. No jugular venous distention. Trachea midline. No lymphadenopathy. Respiratory: Normal respiratory effort. Clear to auscultation, bilaterally without Rales/Wheezes/Rhonchi. Cardiovascular: Regular rate and rhythm with normal S1/S2 without murmurs, rubs or gallops. Abdomen: Soft, non-tender, non-distended with normal bowel sounds. No rebound or guarding. Musculoskeletal: Left BKA stump with vinh c/d/i, no erythema or drainage. Denies pain Skin: Skin color, texture, turgor normal. No rashes or lesions. Neurologic: Neurovascularly intact without any focal sensory/motor deficits. Cranial nerves: II-XIIintact, grossly non-focal. Discharge Medications: Tori Cantor Home Medication Instructions JESUS:[id number] Printed on:07/09/19 3028 Medication Information acetaminophen (TYLENOL) 325 MG tablet Take 2 tablets by mouth every 4 hours as needed for Pain aspirin 81 MG tablet Take 81 mg by mouth daily DULoxetine (CYMBALTA) 60 MG extended release capsule Take 2 capsules by mouth daily enoxaparin (LOVENOX) 40 MG/0.4ML injection Inject into the skin daily insulin lispro (HUMALOG KWIKPEN) 100 UNIT/ML pen Inject 14 Units into the skin 3 times daily (before meals) 14 units TID plus sliding scale (3 unitsfor every 100 over 300) insulin NPH (HUMULIN N) 100 UNIT/ML injection vial Inject 15 Units into the skin 2 times daily (before meals) lisinopril (PRINIVIL;ZESTRIL) 10 MG tablet TAKE ONE TABLET BY MOUTH ONCE DAILY methadone (DOLOPHINE) 10 MG tablet Take 10 mg by mouth every 12 hours. metoclopramide (REGLAN) 5 MG tablet Take 1 tablet by mouth 3 times daily (before meals) nystatin (MYCOSTATIN) 592443 UNIT/GM cream Apply topically 2 times daily. ondansetron (ZOFRAN) 4 MG tablet Take 4 mg by mouth every 6 hours as needed for Nausea or Vomiting pantoprazole (PROTONIX) 40 MG tablet Take 1 tablet by mouth every morning (before breakfast) polyethylene glycol (GLYCOLAX) powder Take 17 g by mouth daily pregabalin (LYRICA) 150 MG capsule TAKE ONE CAPSULE BY MOUTH THREE TIMES DAILY RELION INSULIN SYR 0.5ML/31G 31G X 5/16 0.5 ML MISC USE ONE SYRINGE 4 TIMES DAILY BEFORE MEALS AND AT BEDTIME sennosides-docusate sodium (SENOKOT-S) 8.6-50 MG tablet Take 2 tablets by mouth 2 times daily Recommended Follow-up: Elizabeth Nelson DO [address] [place] [address] In 1 week post hospital fu appt Ortho On 07/14/2019 post hospital fu appt Readmission Risk Risk of Unplanned Readmission: 10 Complexity of Follow up: ? Moderate Complexity: follow up within 7-14 calendar days (59129) ? Severe Complexity: follow up within 7 calendar days (01040) Follow up Testing, Pending results or Referrals at Transitional Care Visit: ? yes ? no Instructions to MA: Please call patient on day after discharge (must document patient contacted within 2 business days of discharge). Follow up questions for MA: 1. Did you get medications filled and taking them as instructed from discharge? 2. Are you following your discharge instructions from your hospital stay? 3. Please confirm patient is scheduled for a follow up appointment within the above time frame. Signed: Yahir Luevano DO Division of Hospitalist Medicine Inpatient Medical Services 07/09/2019, 6:40 PM documented in this encounterSUMMA Work Phone: 1(415) 339-597712-21-2019 Hospital Discharge instructions* Discharge Instr - Activity* Yahir Luevano DO - 07/09/2019 6:39 PM EST As tolerated * Discharge Instr - Diet* Margaret Estrada, MATT - 07/09/2019 12:48 PM EST ? Good nutrition is important when healing from an illness, injury, or surgery. Follow any nutrition recommendations given to you during your hospital stay. ? If you were given an oral nutrition supplement while in the hospital, continue to take this supplement at home. You can take it with meals, in-between meals, and/or before bedtime. These supplements can be purchased at most local grocery stores, pharmacies, and Alerts. ? If you have any questions about your diet or nutrition, call the hospital and ask for the dietitian. * Discharge Instr - SLICK* Mariza Medrano RN - 07/09/2019 6:39 PM EST Continuity of Care Form Patient Name: Tori Cantor : 1975 Admit date: 07/09/2019 Discharge date: 07-09-19 Code Status Order: Full Code Advance Directives: Advance Care Flowsheet Documentation Date/Time Healthcare Directive Type of Healthcare Directive Copy in Chart Healthcare Agent Appointed Healthcare Agent's Name Healthcare Agent's Phone Number 07/09/19 0856 No, patient does not have an advance directive for healthcare treatment -- -- -- -- -- Admitting Physician: Yahir Luevano DO PCP: Elizabeth Nelson DO Discharging Nurse: Mariza Discharging Hospital Unit/Room#: 148/1481 Discharging Unit Phone Number: [phone] Emergency Contact: Extended Emergency Contact Information Primary Emergency Contact: Darwin Cantor [facility] Relation: Parent Secondary Emergency Contact: Ingris Wells [facility] Relation: Aunt/Uncle Past Surgical History: Past Surgical History: Procedure Laterality Date AMPUTATION Left 06/2019 [facility]KA COLONOSCOPY 03/17/2016 DENTAL SURGERY UPPER GASTROINTESTINAL ENDOSCOPY 2014 UPPER GASTROINTESTINAL ENDOSCOPY 11/02/2017 Immunization History: Immunization History Administered Date(s) Administered Hepatitis A 12/24/2016 Hepatitis B (Recombivax HB) 12/24/2016 Influenza Vaccine, unspecified formulation 03/14/2016 Influenza, Quadv, IM, (6 mo and older Fluzone, Flulaval, Fluarix and 3 yrs and older Afluria) 09/02/2018 Influenza, Quadv, IM, PF (6 mo and older Fluzone, Flulaval, Fluarix, and 3 yrs and older Afluria) 04/24/2017 Pneumococcal Polysaccharide ([id number]) 03/17/2016 Active Problems: Patient Active Problem List Diagnosis Code Hypertension I10 GERD (gastroesophageal reflux disease) K21.9 Hep C w/o coma, chronic (HCC) B18.2 Depression F32.9 Osteoarthritis M19.90 Tobacco abuse disorder Z72.0 Ulcerative esophagitis K22.10 Charcot's joint of right foot M14.671 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) E10.42 History of diabetic gastroparesis Z86.39 Hyperlipidemia E78.5 Facet arthritis of lumbar region M47.816 Moderate episode of recurrent major depressive disorder ([facility]) F33.1 Gastroparesis K31.84 Isolation/Infection: Isolation No Isolation Patient Infection Status None to display Nurse Assessment: Last Vital Signs: BP 111/71 Pulse 83 Temp 98.1 F (36.7 C) (Temporal) Resp 18 Ht 5' 9 (1.753 m) Wt 187 lb (84.8 kg) SpO2 99% BMI 27.62 kg/m Last documented pain score (0-10 scale): Pain Level: 2 Last Weight: Wt Readings from Last 1 Encounters: 07/09/19 187 lb (84.8 kg) Mental Status: oriented and alert IV Access: - None Nursing Mobility/ADLs: Walking Assisted Transfer Assisted Bathing Assisted Dressing Assisted Toileting Assisted Feeding Independent [place] Assisted Med Delivery whole Wound Care Documentation and Therapy: Elimination: Continence: Bowel: Yes Bladder: Yes Urinary Catheter: None Colostomy/Ileostomy/Ileal Conduit: No Date of Last BM: 07-09-19 Intake/Output Summary (Last 24 hours) at 07/09/2019 1839 Last data filed at 07/09/2019 1219 Gross per 24 hour Intake 300 ml Output Net 300 ml I/O last 3 completed shifts: In: 300 [P.O.:300] Out: - Safety Concerns: At Risk for Falls Impairments/Disabilities: None Nutrition Therapy: Current Nutrition Therapy: - Oral Diet: Carb Control 3 carbs/meal (1500kcals/day) Routes of Feeding: Oral Liquids: No Restrictions Daily Fluid Restriction: no Last Modified Barium Swallow with Video (Video Swallowing Test): not done Treatments at the Time of Hospital Discharge: Respiratory Treatments: n.a Oxygen Therapy: is not on home oxygen therapy. Ventilator: - No ventilator support Rehab Therapies: Physical Therapy Weight Bearing Status/Restrictions: No weight bearing restirctions Other Medical Equipment (for information only, NOT a DME order): wheelchair Other Treatments: n/a Patient's personal belongings (please select all that are sent with patient): None RN SIGNATURE: MANAGEMENT/SOCIAL WORK SECTION Inpatient Status Date: Readmission Risk Assessment Score: Readmission Risk Risk of Unplanned Readmission: 10 Discharging to Facility/ Agency Name: Address: Phone: Fax: Dialysis Facility (if applicable) Name: Address: Dialysis Schedule: Phone: Fax: [employer]in [employer] signature: {Esignature:[id number]} PHYSICIAN SECTION Prognosis: Good Condition at Discharge: Stable Rehab Potential (if transferring to Rehab): Good Recommended Labs or Other Treatments After Discharge: none Physician Certification: I certify the above information and transfer of Tori Cantor is necessary for the continuing treatment of the diagnosis listed and that he requires [facility] for 30 days. Update Admission H&P: No change in H&P PHYSICIAN SIGNATURE: * Additional Instructions* Yahir Luevano DO - 07/09/2019 . DIABETES SIGNS AND SYMPTOMS GREEN ZONE: All Clear- Your Symptoms Are Under Control Most fasting blood sugars under 140 Rare fasting blood sugars under 70 This Means You Should: Continue routine blood sugar monitoring Keep taking your medications and/or insulin as prescribed Continue to follow a diabetic diet Keep all doctor appointments YELLOW ZONE: Caution as Your Health may be Worsening Frequent fasting blood sugars over 140 or under 70 Low blood sugar symptoms of shakiness, dizziness, sweating, heart racing, blurry vision, anxious/irritable, and/or headache High blood sugar symptoms of extreme thirst, frequent urination, dry skin, blurry vision, drowsy, and/or slow wound healing This Means You Should: Call your doctor for further instructions RED ZONE: Medical Alert Clumsy/jerky movements Seizure Confusion or you can't think clearly This Means You Should Call 911 Immediately * Attachments The following attachments cannot be sent through Care Everywhere. * Gastroparesis (Nigerian) * Constipation (Nigerian) documented in this [facility] Work Phone: [phone] 232-955011-21-2019 History of Past illness Narrative* Problem Noted Date Resolved Date Sepsis 06/09/2019 06/27/2021 Moderate episode of recurrent major depressive d isorder 09/02/2018 09/29/2018 Obesity 02/11/2017 04/05/2018 Lactose intolerance 07/30/2016 02/14/2017 Abdominal pain, right lower quadrant 11/23/2009 01/25/2016 Abdominal pain, left lower quadrant 11/23/2009 01/25/2016 documented as of this encounter (statuses as of 10/21/2021) [facility] History of Past illness Narrative* Problem Noted Date Resolved Date Sepsis 06/09/2019 06/27/2021 Moderate episode of recurrent major depressive d isorder 09/02/2018 09/29/2018 Obesity 02/11/2017 04/05/2018 Lactose intolerance 07/30/2016 02/14/2017 Abdominal pain, right lower quadrant 11/23/2009 01/25/2016 Abdominal pain, left lower quadrant 11/23/2009 01/25/2016 documented as of this encounter (statuses as of 10/25/2021) [facility] History of Past illness Narrative* Problem Noted Date Resolved Date Sepsis 06/09/2019 06/27/2021 IVDU (intravenous drug user) 05/27/2019 Moderate episode of recurrent major depressive d isorder 09/02/2018 09/29/2018 Obesity 02/11/2017 04/05/2018 Lactose intolerance 07/30/2016 02/14/2017 Abdominal pain, right lower quadrant 11/23/2009 01/25/2016 Abdominal pain, left lower quadrant 11/23/2009 01/25/2016 documented as of this encounter (statuses as of 11/06/2021) [facility] History of Past illness Narrative* Problem Noted Date Resolved Date Sepsis 06/09/2019 06/27/2021 IVDU (intravenous drug user) 05/27/2019 Moderate episode of recurrent major depressive d isorder 09/02/2018 09/29/2018 Obesity 02/11/2017 04/05/2018 Lactose intolerance 07/30/2016 02/14/2017 Abdominal pain, right lower quadrant 11/23/2009 01/25/2016 Abdominal pain, left lower quadrant 11/23/2009 01/25/2016 documented as of this encounter (statuses as of 12/11/2021) [facility] History of Past illness Narrative* Problem Noted Date Resolved Date Sepsis 06/09/2019 06/27/2021 IVDU (intravenous drug user) 05/27/2019 Moderate episode of recurrent major depressive d isorder 09/02/2018 09/29/2018 Obesity 02/11/2017 04/05/2018 Lactose intolerance 07/30/2016 02/14/2017 Abdominal pain, right lower quadrant 11/23/2009 01/25/2016 Abdominal pain, left lower quadrant 11/23/2009 01/25/2016 documented as of this encounter (statuses as of 12/30/2021) [facility] History of Past illness Narrative* Problem Noted Date Resolved Date Sepsis 06/09/2019 06/27/2021 IVDU (intravenous drug user) 05/27/2019 Moderate episode of recurrent major depressive d isorder 09/02/2018 09/29/2018 Obesity 02/11/2017 04/05/2018 Lactose intolerance 07/30/2016 02/14/2017 Abdominal pain, right lower quadrant 11/23/2009 01/25/2016 Abdominal pain, left lower quadrant 11/23/2009 01/25/2016 documented as of this encounter (statuses as of 12/30/2021) [facility] History of Past illness Narrative* Problem Noted Date Resolved Date Sepsis 06/09/2019 06/27/2021 Nicotine use disorder, F17.2 05/31/2019 Last Assessment & Plan: Continues to smoke about 1 PPD. No desire to quit at this time IVDU (intravenous drug user) 05/27/2019 Moderate episode of recurrent major depressive d isorder 09/02/2018 09/29/2018 Obesity 02/11/2017 04/05/2018 Lactose intolerance 07/30/2016 02/14/2017 Abdominal pain, right lower quadrant 11/23/2009 01/25/2016 Abdominal pain, left lower quadrant 11/23/2009 01/25/2016 documented as of this encounter (statuses as of 02/06/2022) [facility] History of Past illness Narrative* Problem Noted Date Resolved Date Sepsis 06/09/2019 06/27/2021 Nicotine use disorder, F17.2 05/31/2019 Last Assessment & Plan: Continues to smoke about 1 PPD. No desire to quit at this time IVDU (intravenous drug user) 05/27/2019 Moderate episode of recurrent major depressive d isorder 09/02/2018 09/29/2018 Obesity 02/11/2017 04/05/2018 Lactose intolerance 07/30/2016 02/14/2017 Abdominal pain, right lower quadrant 11/23/2009 01/25/2016 Abdominal pain, left lower quadrant 11/23/2009 01/25/2016 documented as of this encounter (statuses as of 02/06/2022) [facility] History of Past illness Narrative* Problem Noted Date Resolved Date Sepsis 06/09/2019 06/27/2021 Nicotine use disorder, F17.2 05/31/2019 Last Assessment & Plan: Continues to smoke about 1 PPD. No desire to quit at this time IVDU (intravenous drug user) 05/27/2019 Moderate episode of recurrent major depressive d isorder 09/02/2018 09/29/2018 Obesity 02/11/2017 04/05/2018 Lactose intolerance 07/30/2016 02/14/2017 Abdominal pain, right lower quadrant 11/23/2009 01/25/2016 Abdominal pain, left lower quadrant 11/23/2009 01/25/2016 documented as of this encounter (statuses as of 02/25/2022) [facility] History of Past illness Narrative* Problem Noted Date Resolved Date Sepsis 06/09/2019 06/27/2021 Nicotine use disorder, F17.2 05/31/2019 Last Assessment & Plan: Continues to smoke about 1 PPD. No desire to quit at this time IVDU (intravenous drug user) 05/27/2019 Moderate episode of recurrent major depressive d isorder 09/02/2018 09/29/2018 Obesity 02/11/2017 04/05/2018 Lactose intolerance 07/30/2016 02/14/2017 Abdominal pain, right lower quadrant 11/23/2009 01/25/2016 Abdominal pain, left lower quadrant 11/23/2009 01/25/2016 documented as of this encounter (statuses as of 02/25/2022) [facility] History of Past illness Narrative* Problem Noted Date Resolved Date Sepsis 06/09/2019 06/27/2021 Nicotine use disorder, F17.2 05/31/2019 Last Assessment & Plan: Continues to smoke about 1 PPD. No desire to quit at this time IVDU (intravenous drug user) 05/27/2019 Moderate episode of recurrent major depressive d isorder 09/02/2018 09/29/2018 Obesity 02/11/2017 04/05/2018 Lactose intolerance 07/30/2016 02/14/2017 Abdominal pain, right lower quadrant 11/23/2009 01/25/2016 Abdominal pain, left lower quadrant 11/23/2009 01/25/2016 documented as of this encounter (statuses as of 05/02/2022) [facility] History of Past illness Narrative* Problem Noted Date Resolved Date Sepsis 06/09/2019 06/27/2021 Nicotine use disorder, F17.2 05/31/2019 Last Assessment & Plan: Continues to smoke about 1 PPD. No desire to quit at this time IVDU (intravenous drug user) 05/27/2019 Moderate episode of recurrent major depressive d isorder 09/02/2018 09/29/2018 Obesity 02/11/2017 04/05/2018 Lactose intolerance 07/30/2016 02/14/2017 Abdominal pain, right lower quadrant 11/23/2009 01/25/2016 Abdominal pain, left lower quadrant 11/23/2009 01/25/2016 documented as of this encounter (statuses as of 05/10/2022) [facility] History of Past illness Narrative* Problem Noted Date Resolved Date Sepsis 06/09/2019 06/27/2021 Nicotine use disorder, F17.2 05/31/2019 Last Assessment & Plan: Continues to smoke about 1 PPD. No desire to quit at this time IVDU (intravenous drug user) 05/27/2019 Moderate episode of recurrent major depressive d isorder 09/02/2018 09/29/2018 Obesity 02/11/2017 04/05/2018 Lactose intolerance 07/30/2016 02/14/2017 Abdominal pain, right lower quadrant 11/23/2009 01/25/2016 Abdominal pain, left lower quadrant 11/23/2009 01/25/2016 documented as of this encounter (statuses as of 06/16/2022) [facility] History of Past illness Narrative* Problem Noted Date Resolved Date Sepsis 06/09/2019 06/27/2021 Nicotine use disorder, F17.2 05/31/2019 Last Assessment & Plan: Continues to smoke about 1 PPD. No desire to quit at this time IVDU (intravenous drug user) 05/27/2019 Moderate episode of recurrent major depressive d isorder 09/02/2018 09/29/2018 Obesity 02/11/2017 04/05/2018 Lactose intolerance 07/30/2016 02/14/2017 Abdominal pain, right lower quadrant 11/23/2009 01/25/2016 Abdominal pain, left lower quadrant 11/23/2009 01/25/2016 documented as of this encounter (statuses as of 08/13/2022) [facility] History of Past illness Narrative* Problem Noted Date Resolved Date Sepsis 06/09/2019 06/27/2021 Nicotine use disorder, F17.2 05/31/2019 07/ Last Assessment & Plan: Continues to smoke about 1 PPD. No desire to quit at this time IVDU (intravenous drug user) 05/27/2019 Moderate episode of recurrent major depressive d isorder 09/02/2018 09/29/2018 Obesity 02/11/2017 04/05/2018 Lactose intolerance 07/30/2016 02/14/2017 Abdominal pain, right lower quadrant 11/23/2009 01/25/2016 Abdominal pain, left lower quadrant 11/23/2009 01/25/2016 documented as of this encounter (statuses as of 08/15/2022) [facility] History of Past illness Narrative* Problem Noted Date Resolved Date Sepsis 06/09/2019 06/27/2021 Nicotine use disorder, F17.2 05/31/2019 Last Assessment & Plan: Continues to smoke about 1 PPD. No desire to quit at this time IVDU (intravenous drug user) 05/27/2019 Moderate episode of recurrent major depressive d isorder 09/02/2018 09/29/2018 Obesity 02/11/2017 04/05/2018 Lactose intolerance 07/30/2016 02/14/2017 Abdominal pain, right lower quadrant 11/23/2009 01/25/2016 Abdominal pain, left lower quadrant 11/23/2009 01/25/2016 documented as of this encounter (statuses as of 09/25/2022) [facility] History of Past illness Narrative* Problem Noted Date Resolved Date Sepsis 06/09/2019 06/27/2021 Nicotine use disorder, F17.2 05/31/2019 Last Assessment & Plan: Continues to smoke about 1 PPD. No desire to quit at this time IVDU (intravenous drug user) 05/27/2019 Moderate episode of recurrent major depressive d isorder 09/02/2018 09/29/2018 Obesity 02/11/2017 04/05/2018 Lactose intolerance 07/30/2016 02/14/2017 Abdominal pain, right lower quadrant 11/23/2009 01/25/2016 Abdominal pain, left lower quadrant 11/23/2009 01/25/2016 documented as of this encounter (statuses as of 10/01/2022) [facility] History of Past illness Narrative* Problem Noted Date Resolved Date Sepsis 06/09/2019 06/27/2021 Nicotine use disorder, F17.2 05/31/2019 Last Assessment & Plan: Continues to smoke about 1 PPD. No desire to quit at this time IVDU (intravenous drug user) 05/27/2019 Moderate episode of recurrent major depressive d isorder 09/02/2018 09/29/2018 Obesity 02/11/2017 04/05/2018 Lactose intolerance 07/30/2016 02/14/2017 Abdominal pain, right lower quadrant 11/23/2009 01/25/2016 Abdominal pain, left lower quadrant 11/23/2009 01/25/2016 documented as of this encounter (statuses as of 10/03/2022) [facility] History of Past illness Narrative* Problem Noted Date Resolved Date Sepsis 06/09/2019 06/27/2021 Nicotine use disorder, F17.2 05/31/2019 Last Assessment & Plan: Continues to smoke about 1 PPD. No desire to quit at this time IVDU (intravenous drug user) 05/27/2019 Moderate episode of recurrent major depressive d isorder 09/02/2018 09/29/2018 Obesity 02/11/2017 04/05/2018 Lactose intolerance 07/30/2016 02/14/2017 Abdominal pain, right lower quadrant 11/23/2009 01/25/2016 Abdominal pain, left lower quadrant 11/23/2009 01/25/2016 documented as of this encounter (statuses as of 10/08/2022) [facility] History of Past illness Narrative* Problem Noted Date Resolved Date Sepsis 06/09/2019 06/27/2021 Nicotine use disorder, F17.2 05/31/2019 Last Assessment & Plan: Continues to smoke about 1 PPD. No desire to quit at this time IVDU (intravenous drug user) 05/27/2019 Moderate episode of recurrent major depressive d isorder 09/02/2018 09/29/2018 Obesity 02/11/2017 04/05/2018 Lactose intolerance 07/30/2016 02/14/2017 Abdominal pain, right lower quadrant 11/23/2009 01/25/2016 Abdominal pain, left lower quadrant 11/23/2009 01/25/2016 documented as of this encounter (statuses as of 10/30/2022) [facility] note* Diagnosis Gastroparesis documented in this encounter [facility] Work Phone: Evaluation note* Diagnosis 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) Hyperlipidemia Other and unspecified hyperlipidemia documented in this encounter [facility] note* Diagnosis 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)- Primary Osteomyelitis of left tibia, unspecified type (HCC) Depression with anxiety Dysthymic disorder Insomnia, unspecified type Lower urinary tract symptoms (LUTS) Other symptoms involving urinary system Anemia, unspecified type Hypothyroidism, unspecified type Hep C w/o coma, chronic (HCC) Chronic hepatitis C without mention of hepatic coma Charcot's joint of right foot Primary hypertension Unspecified essential hypertension History of diabetic gastroparesis Personal history of other endocrine, metabolic, and immunity disorders 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, mixed, or unspecified nondependent drug abuse, in remission documented in this encounter [facility] note* Diagnosis Abdominal pain, unspecified abdominal location- Primary Chest pain, unspecified type documented in this encounter [facility] note* Diagnosis Special screening for malignant neoplasms, colon- Primary Charcot's joint of right foot Depression with anxiety Dysthymic disorder 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) Primary hypertension Unspecified essential hypertension Hypothyroidism, unspecified type Gastroesophageal reflux disease, unspecified whether esophagitis present Hep C w/o coma, chronic (HCC) Chronic hepatitis C without mention of hepatic coma Encounter for screening for HIV documented in this encounter [facility] note* Diagnosis Below-knee amputation (HCC)- Primary Charcot's joint of right foot Other diabetic neurological complication associated with type 2 diabetes mellitus (HCC) Onychomycosis Dermatophytosis of nail Diminished pulses in lower extremity Other symptoms involving cardiovascular system documented in this encounter [facility] note* Diagnosis [facility]ot ankle, right [facility] Diagnosis Onset Date Resolution Status Constipation acute Gastroparesis acute GERD (gastroesophageal reflux disease) acute Chronic hepatitis C chronic [facility] Work Phone: Evaluation note* Diagnosis 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 Encounter for immunization Need for other specified prophylactic vaccination against single bacterial disease Primary hypertension Unspecified essential hypertension 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) Need for vaccination Need for prophylactic vaccination and inoculation against unspecified single disease [facility] Diagnosis 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)- Primary Primary hypertension Unspecified essential hypertension Acute cough Depression with anxiety Dysthymic disorder Wheezing Hypothyroidism, unspecified type Gastroesophageal reflux disease, unspecified whether esophagitis present Pure hypercholesterolemia [facility] Diagnosis Skin ulcers (HCC)- Primary 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) Primary hypertension Unspecified essential hypertension Charcot's joint of right foot Osteomyelitis of left tibia, unspecified type (HCC) Amputee, below knee, left (HCC) Non-healing wound of amputation stump (HCC) Other amputation stump complication [facility] Diagnosis 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) [facility] Diagnosis 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) [facility] Diagnosis Onset Date Resolution Status Hepatitis C chronic [facility] Work Phone: Evaluation note* Diagnosis Primary hypertension- Primary Unspecified essential hypertension Type 1 diabetes mellitus with other specified complication (HCC) Skin ulcers (HCC) Hep C w/o coma, chronic (HCC) Chronic hepatitis C without mention of hepatic coma Encounter for immunization Need for other specified prophylactic vaccination against single bacterial disease documented in this encounter [facility] note* Diagnosis Onset Date Resolution Status Hepatitis C chronic Hypothyroidism acute Polyneuropathy due to type 1 diabetes mellitus acute Wound discharge acute DM type 1 (diabetes mellitus, type 1) chronic Hypertension chronic 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 acute Tobacco use disorder acute DM type 1 (diabetes mellitus, type 1) chronic Ulcer of left lower extremity with fat layer exposed resolved [facility] Work Phone: Evaluation note* Diagnosis Onset Date Resolution Status Hepatitis C chronic Hypothyroidism acute Polyneuropathy due to type 1 diabetes mellitus acute Wound discharge acute DM type 1 (diabetes mellitus, type 1) chronic Hypertension chronic 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 acute Tobacco use disorder acute DM type 1 (diabetes mellitus, type 1) chronic Ulcer of left lower extremity with fat layer exposed resolved 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 acute Tobacco use disorder acute DM type 1 (diabetes mellitus, type 1) chronic Ulcer of left lower extremity with fat layer exposed resolved [facility] Work Phone: Evaluation note* Diagnosis Primary hypertension- Primary Unspecified essential hypertension 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) Non-healing wound of amputation stump (HCC) Other amputation stump complication Need for vaccination Need for prophylactic vaccination and inoculation against unspecified single disease Neurodermatitis Lichenification and lichen simplex chronicus [facility] Diagnosis Primary hypertension- Primary Unspecified essential hypertension 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) Encounter for immunization Need for other specified prophylactic vaccination against single bacterial disease [facility] Diagnosis 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) [facility]* Diagnosis 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) Primary hypertension Unspecified essential hypertension Depression with anxiety Dysthymic disorder Hypothyroidism, unspecified type Gastroesophageal reflux disease, unspecified whether esophagitis present [facility] Diagnosis Routine medical exam- Primary Routine general medical examination at a health care facility 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) Sore throat Acute pharyngitis Screening for colon cancer Special screening for malignant neoplasms, colon Primary hypertension Unspecified essential hypertension Depression with anxiety Dysthymic disorder Neurodermatitis Lichenification and lichen simplex chronicus [facility]* Diagnosis 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)- Primary Osteomyelitis of left tibia, unspecified type (HCC) Depression with anxiety Dysthymic disorder Insomnia, unspecified type Lower urinary tract symptoms (LUTS) Other symptoms involving urinary system Anemia, unspecified type Hypothyroidism, unspecified type Hep C w/o coma, chronic (HCC) Chronic hepatitis C without mention of hepatic coma Charcot's joint of right foot Primary hypertension Unspecified essential hypertension History of diabetic gastroparesis Personal history of other endocrine, metabolic, and immunity disorders 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, mixed, or unspecified nondependent drug abuse, 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)- Primary Primary hypertension Unspecified essential hypertension Acute cough Depression with anxiety Dysthymic disorder Wheezing Hypothyroidism, unspecified type Gastroesophageal reflux disease, unspecified whether esophagitis present Pure hypercholesterolemia 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) documented in this encounter [facility] note* Diagnosis 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)- Primary Osteomyelitis of left tibia, unspecified type (HCC) Depression with anxiety Dysthymic disorder Insomnia, unspecified type Lower urinary tract symptoms (LUTS) Other symptoms involving urinary system Anemia, unspecified type Hypothyroidism, unspecified type Hep C w/o coma, chronic (HCC) Chronic hepatitis C without mention of hepatic coma Charcot's joint of right foot Primary hypertension Unspecified essential hypertension History of diabetic gastroparesis Personal history of other endocrine, metabolic, and immunity disorders 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, mixed, or unspecified nondependent drug abuse, 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)- Primary Primary hypertension Unspecified essential hypertension Acute cough Depression with anxiety Dysthymic disorder Wheezing Hypothyroidism, unspecified type Gastroesophageal reflux disease, unspecified whether esophagitis present Pure hypercholesterolemia Gastroesophageal reflux disease, unspecified whether esophagitis present documented in this encounter [facility] note* Diagnosis 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)- Primary Osteomyelitis of left tibia, unspecified type (HCC) Depression with anxiety Dysthymic disorder Insomnia, unspecified type Lower urinary tract symptoms (LUTS) Other symptoms involving urinary system Anemia, unspecified type Hypothyroidism, unspecified type Hep C w/o coma, chronic (HCC) Chronic hepatitis C without mention of hepatic coma Charcot's joint of right foot Primary hypertension Unspecified essential hypertension History of diabetic gastroparesis Personal history of other endocrine, metabolic, and immunity disorders 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, mixed, or unspecified nondependent drug abuse, 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)- Primary Primary hypertension Unspecified essential hypertension Acute cough Depression with anxiety Dysthymic disorder Wheezing Hypothyroidism, unspecified type Gastroesophageal reflux disease, unspecified whether esophagitis present Pure hypercholesterolemia Acute cough Sinobronchitis Unspecified sinusitis (chronic) documented in this encounter [facility] note* Diagnosis 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)- Primary Osteomyelitis of left tibia, unspecified type (HCC) Depression with anxiety Dysthymic disorder Insomnia, unspecified type Lower urinary tract symptoms (LUTS) Other symptoms involving urinary system Anemia, unspecified type Hypothyroidism, unspecified type Hep C w/o coma, chronic (HCC) Chronic hepatitis C without mention of hepatic coma Charcot's joint of right foot Primary hypertension Unspecified essential hypertension History of diabetic gastroparesis Personal history of other endocrine, metabolic, and immunity disorders 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, mixed, or unspecified nondependent drug abuse, 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)- Primary Primary hypertension Unspecified essential hypertension Acute cough Depression with anxiety Dysthymic disorder Wheezing Hypothyroidism, unspecified type Gastroesophageal reflux disease, unspecified whether esophagitis present Pure hypercholesterolemia Acute cough Wheezing documented in this encounter [facility] note* Diagnosis 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)- Primary Osteomyelitis of left tibia, unspecified type (HCC) Depression with anxiety Dysthymic disorder Insomnia, unspecified type Lower urinary tract symptoms (LUTS) Other symptoms involving urinary system Anemia, unspecified type Hypothyroidism, unspecified type Hep C w/o coma, chronic (HCC) Chronic hepatitis C without mention of hepatic coma Charcot's joint of right foot Primary hypertension Unspecified essential hypertension History of diabetic gastroparesis Personal history of other endocrine, metabolic, and immunity disorders 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, mixed, or unspecified nondependent drug abuse, 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)- Primary Primary hypertension Unspecified essential hypertension Acute cough Depression with anxiety Dysthymic disorder Wheezing Hypothyroidism, unspecified type Gastroesophageal reflux disease, unspecified whether esophagitis present Pure hypercholesterolemia Gastroesophageal reflux disease, unspecified whether esophagitis present documented in this encounter [facility] note* Diagnosis 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)- Primary Osteomyelitis of left tibia, unspecified type (HCC) Depression with anxiety Dysthymic disorder Insomnia, unspecified type Lower urinary tract symptoms (LUTS) Other symptoms involving urinary system Anemia, unspecified type Hypothyroidism, unspecified type Hep C w/o coma, chronic (HCC) Chronic hepatitis C without mention of hepatic coma Charcot's joint of right foot Primary hypertension Unspecified essential hypertension History of diabetic gastroparesis Personal history of other endocrine, metabolic, and immunity disorders 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, mixed, or unspecified nondependent drug abuse, 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)- Primary Primary hypertension Unspecified essential hypertension Acute cough Depression with anxiety Dysthymic disorder Wheezing Hypothyroidism, unspecified type Gastroesophageal reflux disease, unspecified whether esophagitis present Pure hypercholesterolemia 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) Depression with anxiety Dysthymic disorder Primary hypertension Unspecified essential hypertension Hypothyroidism, unspecified type documented in this encounter [facility] note* Diagnosis 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)- Primary Osteomyelitis of left tibia, unspecified type (HCC) Depression with anxiety Dysthymic disorder Insomnia, unspecified type Lower urinary tract symptoms (LUTS) Other symptoms involving urinary system Anemia, unspecified type Hypothyroidism, unspecified type Hep C w/o coma, chronic (HCC) Chronic hepatitis C without mention of hepatic coma Charcot's joint of right foot Primary hypertension Unspecified essential hypertension History of diabetic gastroparesis Personal history of other endocrine, metabolic, and immunity disorders 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, mixed, or unspecified nondependent drug abuse, 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)- Primary Primary hypertension Unspecified essential hypertension Acute cough Depression with anxiety Dysthymic disorder Wheezing Hypothyroidism, unspecified type Gastroesophageal reflux disease, unspecified whether esophagitis present Pure hypercholesterolemia Medicare annual wellness visit, initial- Primary Routine general medical examination at a health care facility Numbness and tingling Disturbance of skin sensation Memory deficit Memory loss Frequent falls Personal history of fall 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) Depression with anxiety Dysthymic disorder Primary hypertension Unspecified essential hypertension Gastroesophageal reflux disease, unspecified whether esophagitis present Charcot's joint of right foot PVD (peripheral vascular disease) (HCC) Peripheral vascular disease, unspecified Encounter for immunization Need for other specified prophylactic vaccination against single bacterial disease Encounter for screening for lung cancer documented in this encounter [facility] note* Diagnosis 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)- Primary Osteomyelitis of left tibia, unspecified type (HCC) Depression with anxiety Dysthymic disorder Insomnia, unspecified type Lower urinary tract symptoms (LUTS) Other symptoms involving urinary system Anemia, unspecified type Hypothyroidism, unspecified type Hep C w/o coma, chronic (HCC) Chronic hepatitis C without mention of hepatic coma Charcot's joint of right foot Primary hypertension Unspecified essential hypertension History of diabetic gastroparesis Personal history of other endocrine, metabolic, and immunity disorders 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, mixed, or unspecified nondependent drug abuse, 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)- Primary Primary hypertension Unspecified essential hypertension Acute cough Depression with anxiety Dysthymic disorder Wheezing Hypothyroidism, unspecified type Gastroesophageal reflux disease, unspecified whether esophagitis present Pure hypercholesterolemia Encounter for screening for lung cancer- Primary Tobacco use current documented in this encounter [facility] note* Diagnosis 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)- Primary Osteomyelitis of left tibia, unspecified type (HCC) Depression with anxiety Dysthymic disorder Insomnia, unspecified type Lower urinary tract symptoms (LUTS) Other symptoms involving urinary system Anemia, unspecified type Hypothyroidism, unspecified type Hep C w/o coma, chronic (HCC) Chronic hepatitis C without mention of hepatic coma Charcot's joint of right foot Primary hypertension Unspecified essential hypertension History of diabetic gastroparesis Personal history of other endocrine, metabolic, and immunity disorders 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, mixed, or unspecified nondependent drug abuse, 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)- Primary Primary hypertension Unspecified essential hypertension Acute cough Depression with anxiety Dysthymic disorder Wheezing Hypothyroidism, unspecified type Gastroesophageal reflux disease, unspecified whether esophagitis present Pure hypercholesterolemia Numbness and tingling- Primary Disturbance of skin sensation Memory deficit Memory loss Frequent falls Personal history of fall Cerebral infarction, unspecified mechanism (HCC) Spinal stenosis of cervical region Spinal stenosis in cervical region documented in this encounter [facility] note* Diagnosis 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)- Primary Osteomyelitis of left tibia, unspecified type (HCC) Depression with anxiety Dysthymic disorder Insomnia, unspecified type Lower urinary tract symptoms (LUTS) Other symptoms involving urinary system Anemia, unspecified type Hypothyroidism, unspecified type Hep C w/o coma, chronic (HCC) Chronic hepatitis C without mention of hepatic coma Charcot's joint of right foot Primary hypertension Unspecified essential hypertension History of diabetic gastroparesis Personal history of other endocrine, metabolic, and immunity disorders 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, mixed, or unspecified nondependent drug abuse, 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)- Primary Primary hypertension Unspecified essential hypertension Acute cough Depression with anxiety Dysthymic disorder Wheezing Hypothyroidism, unspecified type Gastroesophageal reflux disease, unspecified whether esophagitis present Pure hypercholesterolemia Screen for colon cancer- Primary Special screening for malignant neoplasms, colon documented in this encounter [facility] note* Diagnosis 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)- Primary Osteomyelitis of left tibia, unspecified type (HCC) Depression with anxiety Dysthymic disorder Insomnia, unspecified type Lower urinary tract symptoms (LUTS) Other symptoms involving urinary system Anemia, unspecified type Hypothyroidism, unspecified type Hep C w/o coma, chronic (HCC) Chronic hepatitis C without mention of hepatic coma Charcot's joint of right foot Primary hypertension Unspecified essential hypertension History of diabetic gastroparesis Personal history of other endocrine, metabolic, and immunity disorders 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, mixed, or unspecified nondependent drug abuse, 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)- Primary Primary hypertension Unspecified essential hypertension Acute cough Depression with anxiety Dysthymic disorder Wheezing Hypothyroidism, unspecified type Gastroesophageal reflux disease, unspecified whether esophagitis present Pure hypercholesterolemia Encounter for screening for lung cancer- Primary Tobacco use current documented in this encounter [facility] note* Diagnosis 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)- Primary Osteomyelitis of left tibia, unspecified type (HCC) Depression with anxiety Dysthymic disorder Insomnia, unspecified type Lower urinary tract symptoms (LUTS) Other symptoms involving urinary system Anemia, unspecified type Hypothyroidism, unspecified type Hep C w/o coma, chronic (HCC) Chronic hepatitis C without mention of hepatic coma Charcot's joint of right foot Primary hypertension Unspecified essential hypertension History of diabetic gastroparesis Personal history of other endocrine, metabolic, and immunity disorders 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, mixed, or unspecified nondependent drug abuse, 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)- Primary Primary hypertension Unspecified essential hypertension Acute cough Depression with anxiety Dysthymic disorder Wheezing Hypothyroidism, unspecified type Gastroesophageal reflux disease, unspecified whether esophagitis present Pure hypercholesterolemia Screen for colon cancer Special screening for malignant neoplasms, colon documented in this encounter [facility] note* Diagnosis 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)- Primary Osteomyelitis of left tibia, unspecified type (HCC) Depression with anxiety Dysthymic disorder Insomnia, unspecified type Lower urinary tract symptoms (LUTS) Other symptoms involving urinary system Anemia, unspecified type Hypothyroidism, unspecified type Hep C w/o coma, chronic (HCC) Chronic hepatitis C without mention of hepatic coma Charcot's joint of right foot Primary hypertension Unspecified essential hypertension History of diabetic gastroparesis Personal history of other endocrine, metabolic, and immunity disorders 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, mixed, or unspecified nondependent drug abuse, 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)- Primary Primary hypertension Unspecified essential hypertension Acute cough Depression with anxiety Dysthymic disorder Wheezing Hypothyroidism, unspecified type Gastroesophageal reflux disease, unspecified whether esophagitis present Pure hypercholesterolemia Numbness and tingling Disturbance of skin sensation Cerebral infarction, unspecified mechanism (HCC) Spinal stenosis of cervical region Spinal stenosis in cervical region documented in this encounter [facility] note* Diagnosis 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)- Primary Osteomyelitis of left tibia, unspecified type (HCC) Depression with anxiety Dysthymic disorder Insomnia, unspecified type Lower urinary tract symptoms (LUTS) Other symptoms involving urinary system Anemia, unspecified type Hypothyroidism, unspecified type Hep C w/o coma, chronic (HCC) Chronic hepatitis C without mention of hepatic coma Charcot's joint of right foot Primary hypertension Unspecified essential hypertension History of diabetic gastroparesis Personal history of other endocrine, metabolic, and immunity disorders 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, mixed, or unspecified nondependent drug abuse, 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)- Primary Primary hypertension Unspecified essential hypertension Acute cough Depression with anxiety Dysthymic disorder Wheezing Hypothyroidism, unspecified type Gastroesophageal reflux disease, unspecified whether esophagitis present Pure hypercholesterolemia Encounter for screening for lung cancer Tobacco use current documented in this encounter [facility] note* Diagnosis 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)- Primary Osteomyelitis of left tibia, unspecified type (HCC) Depression with anxiety Dysthymic disorder Insomnia, unspecified type Lower urinary tract symptoms (LUTS) Other symptoms involving urinary system Anemia, unspecified type Hypothyroidism, unspecified type Hep C w/o coma, chronic (HCC) Chronic hepatitis C without mention of hepatic coma Charcot's joint of right foot Primary hypertension Unspecified essential hypertension History of diabetic gastroparesis Personal history of other endocrine, metabolic, and immunity disorders 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, mixed, or unspecified nondependent drug abuse, 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)- Primary Primary hypertension Unspecified essential hypertension Acute cough Depression with anxiety Dysthymic disorder Wheezing Hypothyroidism, unspecified type Gastroesophageal reflux disease, unspecified whether esophagitis present Pure hypercholesterolemia Cervical stenosis of spinal canal- Primary Spinal stenosis in cervical region documented in this encounter [facility] note* Diagnosis 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)- Primary Osteomyelitis of left tibia, unspecified type (HCC) Depression with anxiety Dysthymic disorder Insomnia, unspecified type Lower urinary tract symptoms (LUTS) Other symptoms involving urinary system Anemia, unspecified type Hypothyroidism, unspecified type Hep C w/o coma, chronic (HCC) Chronic hepatitis C without mention of hepatic coma Charcot's joint of right foot Primary hypertension Unspecified essential hypertension History of diabetic gastroparesis Personal history of other endocrine, metabolic, and immunity disorders 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, mixed, or unspecified nondependent drug abuse, 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)- Primary Primary hypertension Unspecified essential hypertension Acute cough Depression with anxiety Dysthymic disorder Wheezing Hypothyroidism, unspecified type Gastroesophageal reflux disease, unspecified whether esophagitis present Pure hypercholesterolemia Screening for malignant neoplasm of colon- Primary documented in this encounter [facility] for referral (narrative)* Outpatient Procedure (Routine) - Pending Review Specialty Diagnoses / Procedures Referred By Silvia lino Referred [facility] Diagnoses Diminished pulses in lower extremity Procedures PVR ANK PRESS UNL VAS LAB NON-INVAS PHYSIOLOGIC STD EXTREMITY ART 2 LEVEL [facility] [address] [place] [address] [facility] [place] [address] [place] [address] Referral ID Status Reason Start Date Expiration Date Visits Requested Visits Authorized [id number] Pending Review Auto-Generat ed Referral 02/24/2022 02/24/2023 1 1 [facility] for referral (narrative)* Diagnostic Procedure Only (Routine) - Closed Specialty Diagnoses / Procedures Referred By Contac t Referred To Contact XR IMAGING Diagnoses Charcot ankle, right Procedures XR FOOT GENERAL 3V AP/LAT/OBL RIGHT RADEX FOOT COMPLETE MINIMUM 3 VIEWS [facility] [address] [place] [address] Xr Imaging Referral ID Status Reason Start Date Expiration Date V isits Requested Visits Authorized [id number] Closed Auto-Generate d Referral 02/20/2022 03/22/2023 1 1 [facility] for referral (narrative)No reason for [facility]: reason for visit Narrative* Diagnostic Procedure Only (Routine) - Closed Specialty Diagnoses / Procedures Referred By Contac t Referred To Contact XR IMAGING Diagnoses Charcot ankle, right Procedures XR FOOT GENERAL 3V AP/LAT/OBL RIGHT RADEX FOOT COMPLETE MINIMUM 3 VIEWS [facility] [address] [place] [address] Xr Imaging Referral ID Status Reason Start Date Expiration Date V isits Requested Visits Authorized [id number] Closed Auto-Generate d Referral 02/20/2022 03/22/2023 1 1 [facility] for visit Narrative* MRI/CT (Routine) - Closed Specialty Diagnoses / Procedures Referred By Contac t Referred To Contact MR IMAGING Diagnoses Spinal stenosis of cervical region Procedures MRI CERVICAL SPINE WO IVCON MRI SPINAL CANAL CERVICAL W/O CONTRAST Marie Contreras PA-C [address] [place] [address] Phone: tel: fax: [place] [id number] Referral ID Status Reason Start Date Expiration Date V isits Requested Visits Authorized [id number] Closed Auto-Generate d Referral 08/24/2024 09/23/2025 1 1 [facility] Summary Purpose Family History Relationship Condition Age at Onset Recorded Date/T rajni Not Specified Diabetes mellitus Unknown Cardiac disease Unknown Malignant neoplasm Unknown Advance Directives Documents on File Type Date Recorded Patient Corporate Investigator Expl anation Advance Directives and Living Will Power of Computer Security Manager Latest Code Status on File Code Status Date Activated Date Inactivated Comments Full Code 07/09/2019 8:41 AM 07/09/2019 11:25 PM Full Code 10/29/2017 3:25 AM 11/02/2017 5:54 PM Full Code 03/17/2016 10:02 AM 03/17/2016 4:21 PM Full Code 03/16/2016 11:46 AM 03/17/2016 10:02 AM Full Code 03/14/2016 7:39 PM 03/16/2016 11:46 AM Documents on File Type Date Recorded Patient Corporate Investigator Expl anation Advance Directives and Living Will Power of Computer Security Manager Latest Code Status on File Code Status Date Activated Date Inactivated Comments Full Code 07/09/2019 8:41 AM 07/09/2019 11:25 PM Full Code 10/29/2017 3:25 AM 11/02/2017 5:54 PM Full Code 03/17/2016 10:02 AM 03/17/2016 4:21 PM Full Code 03/16/2016 11:46 AM 03/17/2016 10:02 AM Full Code 03/14/2016 7:39 PM 03/16/2016 11:46 AM Documents on File Type Date Recorded Patient Corporate Investigator Expl anation ACP-Advance Directive ACP-Power of Computer Security Manager Latest Code Status on File Code Status Date Activated Date Inactivated Comments Full Code 07/06/2020 4:26 PM Full Code 07/04/2020 2:28 PM 07/06/2020 4:26 PM Full Code 07/09/2019 8:41 AM 07/09/2019 11:25 PM Latest Code Status on File Code Status Date Activated Date Inactivated Comments Full Code 07/09/2019 8:41 AM Advance Directive Response Recorded Date/ Time Living Will No September 24, 2021 9:08pm Power of Computer Security Manager No September 24 9:08pm Documents on File Type Date Recorded Patient Corporate Investigator Expl anation Advance Directive(s) 07/20/2019 10:20 AM Advance Directive(s) 06/21/2019 1:23 PM Advance Directive(s) 06/09/2019 3:31 PM Advance Directive(s) 06/08/2019 7:51 PM Advance Directive(s) 05/27/2019 8:47 AM Advance Directive(s) 11/24/2018 8:01 PM Latest Code Status on File Code Status Date Activated Date Inactivated Comments Full Code 07/20/2019 4:13 PM 07/26/2019 9:06 PM Full Code Order Discussed With: Patient Documents on File Type Date Recorded Patient Corporate Investigator Expl anation Advance Directive(s) 07/20/2019 10:20 AM Advance Directive(s) 06/21/2019 1:23 PM Advance Directive(s) 06/09/2019 3:31 PM Advance Directive(s) 06/08/2019 7:51 PM Advance Directive(s) 05/27/2019 8:47 AM Advance Directive(s) 11/24/2018 8:01 PM Latest Code Status on File Code Status Date Activated Date Inactivated Comments Full Code 07/20/2019 4:13 PM 07/26/2019 9:06 PM Advance Directive Response Recorded Date/ Time Living Will No December 11, 2021 6 :44pm Power of Computer Security Manager No December 11, 2021 6:44pm Advance Directive Response Recorded Date/ Time Living Will No December 11, 2021 5 :44pm Power of Computer Security Manager No December 11, 2021 5:44pm Advance Directive Response Recorded Date/ Time Living Will No June 17, 2 022 2:38pm Power of Computer Security Manager No June 17, 2022 2:38pm Advance Directive Response Recorded Date/ Time Living Will No June 17, 2 022 3:38pm Power of Computer Security Manager No June 17, 2022 3:38pm Latest Code Status on File Code Status Date Activated Date Inactivated Comments Full Code 07/20/2019 4:13 PM 07/26/2019 9:06 PM Question Answer Comments Full Code Order Discussed With: Patient Date Activated Date Inactivated Comments 07/20/2019 4:13 PM 07/26/2019 9:06 PM Question Answer Comments Full Code Order Discussed With: Patient Date Activated Date Inactivated Comments 07/20/2019 4:13 PM 07/26/2019 9:06 PM Question Answer Comments Full Code Order Discussed With: Patient Advance Directive Response Recorded Date/ Time Do you have a Healthcare Power of Computer Security Manager? No January 06, 2025 2:19pm Hospital Course Note HNO ID: [id number] Author: Jaimie Sahni Service: Hospital Medicine Author Type: Physician Type: Discharge Summary Filed: 05/31/2019 7:53 AM Note Text: DISCHARGE SUMMARY PATIENT NAME: Tori Cantor Code Status: Not on file Highest Readmission Risk Score: 12 The 30 day readmissions risk score is derived from an internally validated risk model which evaluates patient level characteristics, utilization history, medication orders and lab results up until the day of discharge. Patients with a score of 40 or above are considered highest risk for readmission. Specific patient level drivers will be listed at the bottom of the summary. Admission Information Admission Information ADMIT DATE: 05/27/2019 DISCHARGE DATE: 05/31/19 MY DOCT[facility] AND MEDICAL TEAM: [facility] Doctor: Marie Sahni Primary Care Provider: Elizabeth Nelson DO My Medical Team Members: Treatment Team: Attending Provider: Marie Sahni Primary Service: Jovany Pacheco Consulting: Jayy Saba (more content not included)... Note HNO ID: [id number] Author: yRan Leonardo Service: Hospital Medicine Author Type: Physician Type: Discharge Summary Filed: 06/20/2019 2:58 PM Note Text: DISCHARGE SUMMARY PATIENT NAME: Tori Cantor Code Status: Not on file Highest Readmission Risk Score: 40 The 30 day readmissions risk score is derived from an internally validated risk model which evaluates patient level characteristics, utilization history, medication orders and lab results up until the day of discharge. Patients with a score of 40 or above are considered highest risk for readmission. Specific patient level drivers will be listed at the bottom of the summary. Admission Information Admission Information ADMIT DATE: 06/09/2019 DISCHARGE DATE: 06/20/19 [facility] DOCT[facility] AND MEDICAL TEAM: [facility] Doctor: Puneet Leonardo Primary Care Provider: Elizabeth Nelson DO My Medical Team Members: Treatment Team: Attending Provider: Puneet Leonardo Consulting: Akash Tillman MD Consulting: Jayy Parisi (more content not included)... Note HNO ID: [id number] Author: Lamont Phelps Service: Orthopaedic Surgery Author Type: Resident Type: Discharge Summary Filed: 07/01/2019 7:13 AM Note Text: Attestation signed by Jayy Vogel at 07/01/2019 12:24 PM Agree. 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 Note HNO ID: [id number] Author: Jaimie Sahni Service: Hospital Medicine Author Type: Physician Type: Discharge Summary Filed: 07/26/2019 9:21 AM Note Text: DISCHARGE SUMMARY PATIENT NAME: Tori Cantor Code Status: Full Code Highest Readmission Risk Score: 35 The 30 day readmissions risk score is derived from an internally validated risk model which evaluates patient level characteristics, utilization history, medication orders and lab results up until the day of discharge. Patients with a score of 40 or above are considered highest risk for readmission. Specific patient level drivers will be listed at the bottom of the summary. Admission Information Admission Information ADMIT DATE: 07/20/2019 DISCHARGE DATE: 07/26/2019 MY DOCTORS AND MEDICAL TEAM: [facility] Doctor: Marie Sahni Primary Care Provider: Elizabeth Nelson DO My Medical Team Members: Treatment Team: Attending Provider: Marie Sahni Consulting: Akash Tillman MD Primary Service: Jovany Pacheco (more content not included)... Note HNO ID: [id number] Author: Amanda Vogel Service: Orthopaedic Surgery Author Type: Physician Type: Brief Op Note Filed: 06/10/2019 8:01 PM Note Text: BRIEF OPERATIVE / PROCEDURE NOTE LOG ID: [id number] SURGERY/PROCEDURE DATE: 06/10/2019 INCISION/PROCEDURE START TIME: 11:33 AM INCISION CLOSE/PROCEDURE END TIME: 12:47 PM SURGEON(S)/PROCEDURALIST(S) AND SOFTWARE SUPPORT TECHNICIAN(S): Surgeon(s) and Role: * Jayy Vogel - Primary * Velvet Phelps - Resident - Assisting No Additional Staff SURGERY/PROCEDURE(S): Debridement of left leg and ankle wounds Application of left ankle spanning external fixation (multiplanar) Application of wound vac ANESTHESIA: General FINDINGS: See op report ESTIMATED BLOOD LOSS: 50 mls SPECIMENS: Culture of wound x 2 COMPLICATIONS: None PRE-OP/PRE-PROCEDURE DIAGNOSIS: LEFT ankle fracture/dislocation with cellulitis POST-OP/POST-PROCEDURE DIAGNOSIS: LEFT ankle fracture/dislocation with cellulitis Post-op Plan: -Pain control -Weight-bearing status: NWB LLE -Elevat (more content not included)... Note HNO ID: [id number] Author: Carolyn Weiss Service: Cardiovascular Medicine Author Type: Physician Type: Operative Report Filed: 06/14/2019 11:16 AM Note Text: OPERATIVE NOTE (Transesophageal echocardiogram) SURGERY DATE: 06/14/2019 Proceduralist(s) and Innovation Manager(s): Venancio Weiss MD, [facility] Procedures: Informed consent obtained after explanation of risks and benefits. Patient was brought to the transesophageal echo lab in a fasting state. The oropharynx was anesthetized using viscous lidocaine and hurricaine spray. Moderate sedation was achieved with Cardiac Anesthesia: 180 mg Propofol, 2 mg Versed and 50 mcg Fentanyl . Esophageal Intubation: Esophageal intubation was performed without difficulty, and desired cardiac views were obtained. The probe was then withdrawn. No complications occurred during the procedure. Findings: I. Chambers : LVEF: 60%. LA: No thrombi in LA appendage. Normal filling velocities. RA: Normal RV: Normal Cardiac shunt:None seen by bubble study and color II. Phuong (more content not included)... Note HNO ID: [id number] Author: Lamont Phelps Service: Orthopaedic Surgery Author Type: Resident Type: Brief Op Note Filed: 07/25/2019 9:05 AM Note Text: BRIEF OPERATIVE / PROCEDURE NOTE LOG ID: [id number] SURGERY/PROCEDURE DATE: 07/25/2019 INCISION/PROCEDURE START TIME: 8:25 AM INCISION CLOSE/PROCEDURE END TIME: 8:52 AM SURGEON(S)/PROCEDURALIST(S) AND SOFTWARE SUPPORT TECHNICIAN(S): Surgeon(s) and Role: * Jayy Vogel - Primary * Velvet Phelps - Resident - Assisting No Additional Staff SURGERY/PROCEDURE(S): 1) Irrigation of debridement left BKA surgical site abscess 2) Application of wound vac ANESTHESIA: General FINDINGS: See op report for details. Superficial abscess laterally with fat necrosis. No probe to bone. ESTIMATED BLOOD LOSS: Minimal SPECIMENS: None COMPLICATIONS: None PRE-OP/PRE-PROCEDURE DIAGNOSIS: Surgical site infection [T81.49XA] POST-OP/POST-PROCEDURE DIAGNOSIS: Surgical site infection [T81.49XA] Post-op Plan: -Pain control -Medical management per primary -DM control per primary -Weight-b (more content not included)... Note Hospitalist Discharge Summar georgina Cantor : 1975 Admit date: 07/04/2020 Discharge date: 07/09/2020 Admitting Physician: Phil Lee MD Primary Care Physician: Elizabeth Nelson DO Visit Status: Admission Code Status: Full Code Discharge Diagnoses: 1. 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 DM I with hyperglycemia/ cellulitis 3. Hyponatremia 4. Metabolic Alkalosis - Resolved 5. Anemia 6. Urinary Retention - Resolved 7. LE Ulcers 8. Right Charcot Arthropathy 9. HTN 10. Hepatitis C 11. GERD Additional diagnosis evaluated and treated during the admission: Patient Active Problem List Diagnosis Code ? Hypertension I10 ? GERD (gastroesophageal reflux disease) K21.9 ? Hep C w/o coma, chronic (HCC) B18.2 ? Depression F32.9 ? Osteoarthritis M19.90 ? Tobacco abuse disorder Z72.0 ? Ulcerative esophagitis K22.10 ? Charcot's joint of right foot M14.671 ? 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) E10.42 ? History of diab (more content not included)... Procedure Findings Note HNO ID: [id number] Author: Amanda Vogel Service: Orthopaedic Surgery Author Type: Physician Type: Brief Op Note Filed: 06/10/2019 8:01 PM Note Text: BRIEF OPERATIVE / PROCEDURE NOTE LOG ID: [id number] SURGERY/PROCEDURE DATE: 06/10/2019 INCISION/PROCEDURE START TIME: 11:33 AM INCISION CLOSE/PROCEDURE END TIME: 12:47 PM SURGEON(S)/PROCEDURALIST(S) AND SOFTWARE SUPPORT TECHNICIAN(S): Surgeon(s) and Role: * Jayy Vogel - Primary * Velvet Phelps - Resident - Assisting No Additional Staff SURGERY/PROCEDURE(S): Debridement of left leg and ankle wounds Application of left ankle spanning external fixation (multiplanar) Application of wound vac ANESTHESIA: General FINDINGS: See op report ESTIMATED BLOOD LOSS: 50 mls SPECIMENS: Culture of wound x 2 COMPLICATIONS: None PRE-OP/PRE-PROCEDURE DIAGNOSIS: LEFT ankle fracture/dislocation with cellulitis POST-OP/POST-PROCEDURE DIAGNOSIS: LEFT ankle fracture/dislocation with cellulitis Post-op Plan: -Pain control -Weight-bearing status: NWB LLE -Elevat (more content not included)... Note HNO ID: [id number] Author: Carolyn Weiss Service: Cardiovascular Medicine Author Type: Physician Type: Operative Report Filed: 06/14/2019 11:16 AM Note Text: OPERATIVE NOTE (Transesophageal echocardiogram) SURGERY DATE: 06/14/2019 Proceduralist(s) and Innovation Manager(s): Venancio Weiss MD, [facility] Procedures: Informed consent obtained after explanation of risks and benefits. Patient was brought to the transesophageal echo lab in a fasting state. The oropharynx was anesthetized using viscous lidocaine and hurricaine spray. Moderate sedation was achieved with Cardiac Anesthesia: 180 mg Propofol, 2 mg Versed and 50 mcg Fentanyl . Esophageal Intubation: Esophageal intubation was performed without difficulty, and desired cardiac views were obtained. The probe was then withdrawn. No complications occurred during the procedure. Findings: I. Chambers : LVEF: 60%. LA: No thrombi in LA appendage. Normal filling velocities. RA: Normal RV: Normal Cardiac shunt:None seen by bubble study and color II. Phuong (more content not included)... Note HNO ID: [id number] Author: Lamont Phelps Service: Orthopaedic Surgery Author Type: Resident Type: Brief Op Note Filed: 07/25/2019 9:05 AM Note Text: BRIEF OPERATIVE / PROCEDURE NOTE LOG ID: [id number] SURGERY/PROCEDURE DATE: 07/25/2019 INCISION/PROCEDURE START TIME: 8:25 AM INCISION CLOSE/PROCEDURE END TIME: 8:52 AM SURGEON(S)/PROCEDURALIST(S) AND SOFTWARE SUPPORT TECHNICIAN(S): Surgeon(s) and Role: * Jayy Vogel - Primary * Velvet Phelps - Resident - Assisting No Additional Staff SURGERY/PROCEDURE(S): 1) Irrigation of debridement left BKA surgical site abscess 2) Application of wound vac ANESTHESIA: General FINDINGS: See op report for details. Superficial abscess laterally with fat necrosis. No probe to bone. ESTIMATED BLOOD LOSS: Minimal SPECIMENS: None COMPLICATIONS: None PRE-OP/PRE-PROCEDURE DIAGNOSIS: Surgical site infection [T81.49XA] POST-OP/POST-PROCEDURE DIAGNOSIS: Surgical site infection [T81.49XA] Post-op Plan: -Pain control -Medical management per primary -DM control per primary -Weight-b (more content not included)... Discharge Instructions * Attachments The following attachments cannot be sent through Care Everywhere. * Constipation (Nigerian) * Flank Pain (Nigerian) * Back Pain (Nigerian) documented in this encounter* Instructions* Xochitl Real PA-C - 10/10/2019 Return to the ED sooner for any new or worsening thoughts. * Attachments The following attachments cannot be sent through Care Everywhere. * Depression: Self Care (Nigerian) documented in this encounter* Discharge Instr - Lab* Jacques Hamm RN - 07/09/2020 11:33 AM EST Your physician has ordered skilled home care services for you. Your home care will be provided by: [facility] [phone] Diann will be providing the following equipment, toilet riser will be shipped to home and Diann will be working on insurance authorization for light weight wheelchair and can be reached at [phone] or [phone] * Additional Instructions* Shiv Jenkins MD - 07/09/2020 Make sure to take antibiotics as prescribed Dr. Lentz Osteomyelitis: Care Instructions Your Care Instructions Osteomyelitis (say mr-igdj-af-yn-og-KJ-tus) is a bone infection. It is caused by bacteria. The bacteria can infect the bone where it has been injured, or they can be carried through the blood from another area in the body. Osteomyelitis can be a short- or long-term problem. It is treated with antibiotics. You may get theantibiotics as pills or through a needle in a vein (IV). You will probably get treatment in the hospital at first. The type of treatment depends on the type of bacteria causing the infection, the bones affected, and how bad the infection is. Sometimes people need surgery to drain pus from bone or to fix damaged bone. Short-term osteomyelitis that is treated right away usually can be cured. But the long-term form sometimes comes back after treatment. You can help your chances of stopping the infection by taking your medicines as directed. Follow-up care is a zuñiga part of your treatment and safety. Be sure to make and go to all appointments, and call your doctor if you are having problems. It's also a good idea to know your test resultsand keep a list of the medicines you take. How can you care for yourself at home? Take your antibiotics as directed. Do not stop taking them just because you feel better. You need to take the full course of antibiotics. Take pain medicines exactly as directed. ? If the doctor gave you a prescription medicine for pain, take it as prescribed. ? If you are not taking a prescription pain medicine, ask your doctor if you can take an hmaa-csu-dcmtitm medicine. Do mild exercise and stretching if your doctor says it is okay. This can help keep your bones and muscles healthy. Avoid strenuous work or exercise until your doctor says you can do it. Consider physical therapy if your doctor suggests it. Physical therapy may help you have a normal range of movement. Do not smoke. Smoking can slow healing of the infection. If you need help quitting, talk to your doctor about stop-smoking programs and medicines. These can increase your chances of quitting for good. When should you call for help? Call 911 anytime you think you may need emergency care. For example, call if: You have severe bone pain. Call your doctor now or seek immediate medical care if: You continue to have bone pain. You have signs of infection, such as: ? Increased pain, swelling, warmth, or redness. ? Red streaks leading from a wound. ? Pus draining from a wound. ? A fever. Watch closely for changes in your health, and be sure to contact your doctor if: You do not get better as expected. Where can you learn more? Go to [email or web address] and sign in to your [employer] account. Enter B364 in the Search Health Information box to learn more about Osteomyelitis: Care Instructions. If you do not have an account, please click on the Sign Up Now link. Current as of: September 21, 2019 Content Version: 12.6 [employer]. Care instructions adapted under license by [employer]. If you have questions about a medical condition or this instruction, always ask your healthcare professional. [employer] disclaims any warranty or liability for your use of this information. Cellulitis: Care Instructions Your Care Instructions Cellulitis is a skin infection caused by bacteria, most often strep or staph. It often occurs aftera break in the skin from a scrape, cut, bite, or puncture, or after a rash. Cellulitis may be treated without doing tests to find out what caused it. But your doctor may do tests, if needed, to look for a specific bacteria, like methicillin-resistant Staphylococcus aureus (MRSA). The doctor has checked you carefully, but problems can develop later. If you notice any problems ornew symptoms, get medical treatment right away. Follow-up care is a zuñiga part of your treatment and safety. Be sure to make and go to all appointments, and call your doctor if you are having problems. It's also a good idea to know your test resultsand keep a list of the medicines you take. How can you care for yourself at home? Take your antibiotics as directed. Do not stop taking them just because you feel better. You need to take the full course of antibiotics. Prop up the infected area on pillows to reduce pain and swelling. Try to keep the area above the level of your heart as often as you can. If your doctor told you how to care for your wound, follow your doctor's instructions. If you did not get instructions, follow this general advice: ? Wash the wound with clean water 2 times a day. Don't use hydrogen peroxide or alcohol, which can slow healing. ? You may cover the wound with a thin layer of petroleum jelly, such as Vaseline, and a nonstick bandage. ? Apply more petroleum jelly and replace the bandage as needed. Be safe with medicines. Take pain medicines exactly as directed. ? If the doctor gave you a prescription medicine for pain, take it as prescribed. ? If you are not taking a prescription pain medicine, ask your doctor if you can take an hymu-xaj-qmcpnuo medicine. To prevent cellulitis in the future Try to prevent cuts, scrapes, or other injuries to your skin. Cellulitis most often occurs where there is a break in the skin. If you get a scrape, cut, mild burn, or bite, wash the wound with clean water as soon as you can tohelp avoid infection. Don't use hydrogen peroxide or alcohol, which can slow healing. If you have swelling in your legs (edema), support stockings and good skin care may help prevent leg sores and cellulitis. Take care of your feet, especially if you have diabetes or other conditions that increase the risk of infection. Wear shoes and socks. Do not go barefoot. If you have athlete's foot or other skin problems on your feet, talk to your doctor about how to treat them. When should you call for help? Call your doctor now or seek immediate medical care if: You have signs that your infection is getting worse, such as: ? Increased pain, swelling, warmth, or redness. ? Red streaks leading from the area. ? Pus draining from the area. ? A fever. You get a rash. Watch closely for changes in your health, and be sure to contact your doctor if: You do not get better as expected. Where can you learn more? Go to [email or web address] and sign in to your [employer] account. Enter X309 in the Search Health Information box to learn more about Cellulitis: Care Instructions. If you do not have an account, please click on the Sign Up Now link. Current as of: January 19, 2020 Content Version: 12.6 [employer]. Care instructions adapted under license by [employer]. If you have questions about a medical condition or this instruction, always ask your healthcare professional. [employer] disclaims any warranty or liability for your use of this information. documented in this encounter Assessments Diagnosis Left flank pain- Primary Abdominal pain, unspecified site Acute left-sided thoracic back pain Drug-induced constipation Other constipation Diagnosis Depression, unspecified depression type Diagnosis Epigastric mass Abdominal or pelvic swelling, mass, or lump, epigastric LLQ abdominal mass Abdominal or pelvic swelling, mass, or lump, left lower quadrant Pelvic pain Diagnosis Cellulitis of left lower extremity- Primary Cellulitis and abscess of leg, except foot Hyperglycemia Other abnormal glucose Cellulitis Cellulitis and abscess of unspecified site Reason for Referral Status Reason Specialty Diagnoses / Procedures Referred By Contact Referred To Contact Pending Review Radiology Diagnoses LLQ abdominal mass Pelvic pain Procedures CT PELVIS W CONTRAST Elizabeth Nelson, DO [address] [id number] Status Reason Specialty Diagnoses / Procedures Referred By Contact Referred To Contact Pending Review Radiology Diagnoses Epigastric mass Procedures CT ABDOMEN W CONTRAST Elizabeth Nelson, DO [address] [place] [address] Specialty Diagnoses / Procedures Referred By Contac t Referred To Contact Podiatry Diagnoses Charcot's joint of right foot Procedures CONSULT TO [facility]ODIATRY OFFICE/[facility] 60-74 MINUTES 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, 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, 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 [address] [place] [address] Referral ID Status Reason Start Date Expiration Date Visits Requested Visits Authorized [id number] Pending Review PCP Requested Referral 11/06/2021 11/06/2022 1 1 Specialty Diagnoses / Procedures Referred By Contac t Referred To Contact Ophthalmology Diagnoses 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) Procedures CONSULT TO OPHTHALMOLOGY OFFICE/[facility]IENT [facility] 60-74 MINUTES 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, 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, 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 [address] [place] [address] Referral ID Status Reason Start Date Expiration Date Visits Requested Visits Authorized [id number] Pending Review PCP Requested Referral 11/06/2021 11/06/2022 1 1 Specialty Diagnoses / Procedures Referred By Contac t Referred To Contact Urology Diagnoses Lower urinary tract symptoms (LUTS) Procedures CONSULT TO UROLOGY OFFICE/[facility]IENT [facility] 60-74 MINUTES 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, 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, 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 [address] [place] [address] Referral ID Status Reason Start Date Expiration Date Visits Requested Visits Authorized [id number] Pending Review PCP Requested Referral 11/06/2021 11/06/2022 1 1 Specialty Diagnoses / Procedures Referred By Contac t Referred To Contact Endocrinology Diagnoses 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) Procedures CONSULT TO ENDOCRINOLOGY OFFICE/[facility]IENT [facility] 60-74 MINUTES 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, 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, 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 [address] [place] [address] Referral ID Status Reason Start Date Expiration Date Visits Requested Visits Authorized [id number] Pending Review PCP Requested Referral 11/06/2021 11/06/2022 1 1 Specialty Diagnoses / Procedures Referred By Contac t Referred To Contact Podiatry Diagnoses Charcot's joint of right foot Procedures CONSULT TO PODIATRY OFFICE/OUTPATIENT [facility] HIGH MDM 60-74 MINUTES Jah Mas MD [address] [place] [address] Referral ID Status Reason Start Date Expiration Date Visits Requested Visits Authorized [id number] Pending Review PCP Requested Referral 02/05/2022 02/05/2023 1 1 Specialty Diagnoses / Procedures Referred By Contac t Referred To Contact Gastroenterology Diagnoses Special screening for malignant neoplasms, colon Hep C w/o coma, chronic (HCC) Procedures CONSULT TO GASTROENTEROLOGY Jah Mas MD [address] [place] [id number] Referral ID Status Reason Start Date Expiration Date Visits Requested Visits Authorized [id number] Ref Not Required PCP Requested Referral 02/05/2022 02/05/2023 1 1 Specialty Diagnoses / Procedures Referred By Contac t Referred To Contact Endocrinology Diagnoses 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) Procedures CONSULT TO ENDOCRINOLOGY Jah Mas MD [address] [place] [address] Referral ID Status Reason Start Date Expiration Date Visits Requested Visits Authorized [id number] Ref Not Required PCP Requested Referral 05/09/2023 1 1 Specialty Diagnoses / Procedures Referred By Contac t Referred To Contact Dermatology Diagnoses Skin ulcers (HCC) Procedures CONSULT TO DERMATOLOGY Jah Mas MD [address] [place] [id number] Referral ID Status Reason Start Date Expiration Date Visits Requested Visits Authorized [id number] Ref Not Required PCP Requested Referral 09/24/2022 09/24/2023 1 1 Specialty Diagnoses / Procedures Referred By Contac t Referred To Contact Gastroenterology Diagnoses Screening for colon cancer Procedures CONSULT TO GASTROENTEROLOGY Jah Mas MD [address] [place] [address] Referral ID Status Reason Start Date Expiration Date Visits Requested Visits Authorized [id number] Ref Not Required PCP Requested Referral 10/30/2023 10/29/2024 1 1 Specialty Diagnoses / Procedures Referred By Contac t Referred To Contact Ent - Otolaryngology Diagnoses Sore throat Procedures CONSULT TO ENT Jah Mas MD [address] [place] [address] Referral ID Status Reason Start Date Expiration Date Visits Requested Visits Authorized [id number] Ref Not Required PCP Requested Referral 10/30/2023 10/29/2024 1 1 Specialty Diagnoses / Procedures Referred By Contac t Referred To Contact Neurology Diagnoses Numbness and tingling Memory deficit Frequent falls Procedures CONSULT TO NEUROLOGY OFFICE/[facility] 60 MINUTES Margarita Licona, 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 [address] [place] [address] Referral ID Status Reason Start Date Expiration Date Visits Requested Visits Authorized [id number] Authorized PCP Requested Referral 08/10/2024 08/10/2025 1 1 Specialty Diagnoses / Procedures Referred By Contac t Referred To Contact CT IMAGING Diagnoses Encounter for screening for lung cancer Tobacco use current Procedures CT LUNG SCREEN WO IVCON COMPUTED TOMOGRAPHY THORAX LW DOSE LNG CA [facility] Lamont Jacques Nettles, 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 [address] [place] [address] Ct Imaging [id number] Referral ID Status Reason Start Date Expiration Date Visits Requested Visits Authorized [id number] Authorized Auto-Generat ed Referral 08/22/2024 07/19/2025 1 1 Specialty Diagnoses / Procedures Referred By Contac t Referred To Contact MR IMAGING Diagnoses Spinal stenosis of cervical region Procedures MRI CERVICAL SPINE WO IVCON MRI SPINAL CANAL CERVICAL W/O CONTRAST Marie Contreras PA-C [address] [place] [address] [place] [address] Referral ID Status Reason Start Date Expiration Date Visits Requested Visits Authorized [id number] Authorized Auto-Generat ed Referral 08/24/2024 09/23/2025 1 1 Specialty Diagnoses / Procedures Referred By Silvia t Referred To Contact MR IMAGING Diagnoses Numbness and tingling Cerebral infarction, unspecified mechanism (HCC) Procedures MRI BRAIN WO IVCON MRI BRAIN BRAIN STEM W/O CONTRAST MATERIAL Marie Edwards PA-C [address] [facility] [place] [address] [place] [address] Referral ID Status Reason Start Date Expiration Date Visits Requested Visits Authorized [id number] Authorized Auto-Generat ed Referral 08/24/2024 09/23/2025 1 1 History of Present Illness * Pepito Sevilla MD - 07/09/2020 1:06 PM EST [facility]-Infectious Diseases Attending Consult Note Reason for F/U: Infected ulcer, abscess and osteomyelitis, left BKA stump History of Present Illness: F/U for Infected ulcer, abscess and osteomyelitis, left BKA stump. S/p I&D and revision amputation of Lt BKA stump, POD#3. He was admitted on 07/04/20 with the symptoms of infection; about a weekago, he developed a blood bubble at the stump that spontaneously opened up and drained, c/o pain, fever, chill since then, in hospital, he has been afebrile, Xray showed soft tissue edema, no bony erosion; pip/tazo and vancomycin were given. He was seen, found him alert, sitting on bed, c/o pain atthe stump, nausea, vomiting, and abdominal pain; he appeared agitated about his IV beeping, NAD. 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 , had IV antibiotics in the hospital. He has h/o uncontrolled DM and right charcot foot. He was examined, ROS and chart were reviewed, treatment plan was discussed. Past Medical History: Diagnosis Date Colitis 03/14/2016 Depression Diabetes mellitus type 1 with manifestations, uncontrolled (HCC) Gastroparesis GERD (gastroesophageal reflux disease) GERD Hepatitis C In Past Hypertension Hyponatremia 03/14/2016 Neuropathy Osteoarthritis Type I (juvenile type) diabetes mellitus with neurological manifestations, uncontrolled(250.63) Past Surgical History: Procedure Laterality Date AMPUTATION Left 06/2019 LBKA COLONOSCOPY 03/17/2016 DENTAL SURGERY UPPER GASTROINTESTINAL ENDOSCOPY 2013 UPPER GASTROINTESTINAL ENDOSCOPY 11/02/2017 Current Medications: Current Facility-Administered Medications: aspirin EC tablet 81 mg, 81 mg, Oral, BID [START ON 07/10/2020] insulin lispro (HUMALOG) injection vial 6 Units, 6 Units, Subcutaneous, QAM AC insulin lispro (HUMALOG) injection vial 8 Units, 8 Units, Subcutaneous, Daily before lunch insulin lispro (HUMALOG) injection vial 8 Units, 8 Units, Subcutaneous, Dinner insulin glargine (LANTUS) injection vial 22 Units, 22 Units, Subcutaneous, Nightly DAPTOmycin (CUBICIN) 500 mg in sodium chloride 0.9 % 50 mL IVPB, 6 mg/kg, Intravenous, Q24H sodium chloride flush 0.9 % injection 10 mL, 10 mL, Intravenous, 2 times per day sodium chloride flush 0.9 % injection 10 mL, 10 mL, Intravenous, 2 times per day sodium chloride flush 0.9 % injection 10 mL, 10 mL, Intravenous, PRN heparin flush 100 UNIT/ML injection 250 Units, 250 Units, Intravenous, 2 times per day heparin flush 100 UNIT/ML injection 250 Units, 250 Units, Intravenous, PRN insulin lispro (HUMALOG) injection vial 0-6 Units, 0-6 Units, Subcutaneous, TID WC 0.9 % sodium chloride infusion, , Intravenous, Continuous influenza quadrivalent split vaccine (FLUZONE;FLUARIX;FLULAVAL;AFLURIA) injection 0.5 mL, 0.5 mL, Intramuscular, Prior to discharge sodium chloride flush 0.9 % injection 10 mL, 10 mL, Intravenous, 2 times per day sodium chloride flush 0.9 % injection 10 mL, 10 mL, Intravenous, PRN [DISCONTINUED] promethazine (PHENERGAN) tablet 12.5 mg, 12.5 mg, Oral, Q6H PRN OR ondansetron (ZOFRAN) injection 4 mg, 4 mg, Intravenous, Q6H PRN polyethylene glycol (GLYCOLAX) packet 17 g, 17 g, Oral, Daily PRN acetaminophen (TYLENOL) tablet 650 mg, 650 mg, Oral, Q6H PRN OR acetaminophen (TYLENOL) suppository 650 mg, 650 mg, Rectal, Q6H PRN glucose (GLUTOSE) 40 % oral gel 15 g, 15 g, Oral, PRN dextrose 50 % IV solution, 12.5 g, Intravenous, PRN glucagon (rDNA) injection 1 mg, 1 mg, Intramuscular, PRN dextrose 5 % solution, 100 mL/hr, Intravenous, PRN oxyCODONE (ROXICODONE) immediate release tablet 5 mg, 5 mg, Oral, Q4H PRN DULoxetine (CYMBALTA) extended release capsule 120 mg, 120 mg, Oral, Daily cilostazol (PLETAL) tablet 100 mg, 100 mg, Oral, BID gabapentin (NEURONTIN) capsule 300 mg, 300 mg, Oral, TID lisinopril (PRINIVIL;ZESTRIL) tablet 10 mg, 10 mg, Oral, Daily metoclopramide (REGLAN) tablet 5 mg, 5 mg, Oral, TID pantoprazole (PROTONIX) tablet 40 mg, 40 mg, Oral, QAM AC sennosides-docusate sodium (SENOKOT-S) 8.6-50 MG tablet 2 tablet, 2 tablet, Oral, BID tamsulosin (FLOMAX) capsule 0.4 mg, 0.4 mg, Oral, Daily Allergies: No Known Allergies Social History Socioeconomic History Marital status: Spouse name: None Number of children: None Years of education: None Highest education level: None Occupational History None Social Needs Financial resource strain: None Food insecurity Worry: None Inability: None Transportation needs Medical: None Non-medical: None Tobacco Use Smoking status: Current Every Day Smoker Packs/day: 0.50 Years: 30.00 Pack years: 15.00 Types: Cigarettes Smokeless tobacco: Never Used Substance and Sexual Activity Alcohol use: Not Currently Alcohol/week: 0.0 standard drinks Comment: Rare Drug use: Not Currently Frequency: 1.0 times per week Types: Marijuana Sexual activity: Not Currently Lifestyle Physical activity Days per week: None Minutes per session: None Stress: None Relationships Social connections Talks on phone: None Gets together: None Attends congregation service: None Active member of club or organization: None Attends meetings of clubs or organizations: None Relationship status: None Intimate partner violence Fear of current or ex partner: None Emotionally abused: None Physically abused: None Forced sexual activity: None Other Topics Concern None Social History Narrative None Family History Problem Relation Age of Onset Diabetes Mother Heart Disease Mother High Blood Pressure Mother Stroke Mother Diabetes Father Heart Disease Father High Blood Pressure Father Stroke Father Review of Systems: CONSTITUTIONAL: positive for fatigue EYES: negative HEENT: negative RESPIRATORY: negative CARDIOVASCULAR: negative GASTROINTESTINAL: Nausea, vomiting, abdominal pain GENITOURINARY: negative INTEGUMENT/BREAST: negative HEMATOLOGIC/LYMPHATIC: negative ALLERGIC/IMMUNOLOGIC: negative ENDOCRINE: negative MUSCULOSKELETAL: Left BKA stump ulcer with pain NEUROLOGICAL: Peripheral neuropathy BEHAVIOR/PSYCH: negative Physical Exam: Vitals: BP 119/77 Pulse 83 Temp 98.2 F (36.8 C) (Temporal) Resp 18 Ht 5' 9 (1.753 m) Wt 185 lb 13.6 oz (84.3 kg) SpO2 98% BMI 27.44 kg/m CONSTITUTIONAL: awake, alert, cooperative, no apparent distress, and appears stated age EYES: Lids and lashes normal, pupils equal, round and reactive to light, extra ocular muscles intact, sclera clear, conjunctiva normal ENT: Normocephalic, without obvious abnormality, atraumatic, sinuses nontender on palpation, external ears without lesions, oral pharynx with moist mucus membranes, tonsils without erythema or exudates, gums normal and good dentition. NECK: Supple, symmetrical, trachea midline, no adenopathy, thyroid symmetric, not enlarged and no tenderness, skin normal HEMATOLOGIC/LYMPHATICS: no cervical lymphadenopathy BACK: Symmetric, no curvature, spinous processes are non-tender on palpation, paraspinous muscles are non-tender on palpation, no costal vertebral tenderness LUNGS: No increased work of breathing, good air exchange, clear to auscultation bilaterally, no crackles or wheezing CARDIOVASCULAR: Normal apical impulse, regular rate and rhythm, normal S1 and S2, no S3 or S4, and no murmur noted ABDOMEN: No scars, normal bowel sounds, soft, non-distended, non-tender, no masses palpated, no hepatosplenomegally MUSCULOSKELETAL: He has right midfoot deformity; Lt knee with full range of motion, has a 1 cm wound on Lt BKA stump which appeared clean and not indurated, no drainage. There is no redness, warmth, or swelling of the joints. Full range of motion noted. Motor strength is 5 out of 5 all extremities bilaterally. Tone is normal. NEUROLOGIC: Awake, alert, oriented to name, place and time. Cranial nerves II- XII are grossly intact. Motor is 5 out of 5 bilaterally. Cerebellar finger to nose, heel to hsu intact. Sensory is intact. Babinski down going, Romberg negative, and gait is normal. SKIN: Warm, dry and no rashes Labs: CBC with Differential: Lab Results Component Value Date WBC 6.5 07/09/2020 WBC 10.4 11/07/2015 RBC 4.33 07/09/2020 HGB 11.4 07/09/2020 HCT 35.0 07/09/2020 PLT 239 07/09/2020 MCV 80.7 07/09/2020 MCH 26.3 07/09/2020 MCHC 32.6 07/09/2020 RDW 16.9 07/09/2020 SEGSPCT 65.9% 11/07/2015 LYMPHOPCT 30.7 07/09/2020 MONOPCT 9.4 07/09/2020 MONOPCT 8.2 11/17/2019 BASOPCT 1.4 07/09/2020 BASOPCT 1.1 11/17/2019 MONOSABS 0.6 07/09/2020 MONOSABS 0.50 11/17/2019 LYMPHSABS 2.0 07/09/2020 LYMPHSABS 2.30 11/17/2019 EOSABS 0.5 07/09/2020 EOSABS 0.20 11/17/2019 BASOSABS 0.1 07/09/2020 BASOSABS 0.10 11/17/2019 CMP: Lab Results Component Value Date NA 133 07/09/2020 K 4.3 07/09/2020 CL 98 07/09/2020 CO2 30 07/09/2020 BUN 12 07/09/2020 CREATININE 0.56 07/09/2020 GFRAA >60 11/17/2019 AGRATIO 1.0 11/02/2015 LABGLOM >60 11/17/2019 GLUCOSE 293 07/09/2020 GLUCOSE 176 11/17/2019 PROT 6.6 07/09/2020 LABALBU 3.5 07/09/2020 LABALBU 3.9 05/30/2014 CALCIUM 8.9 07/09/2020 BILITOT 0.2 07/09/2020 ALKPHOS 70 07/09/2020 AST 24 07/09/2020 ALT 10 07/09/2020 Blood Culture: No components found for: CBLOOD, [id number] blood-neg Wound Culture: 07/04 Lt BKA stump ulcer-Staph aureus MRSA 07/06 Lt BKA stump: MRSA procal <0.10 A1c >14.0 Lines: PIV site ok Radiography/Echo/Other: Reviewed Xray Lt tib/fib: Findings and impression: Left leg tibia fibula performed two views. Below the knee amputation. No bony lytic process. No soft tissue gas. Some edema of the soft tissues present suspicious for cellulitis. Please correlate clinically. Antimicrobials, Start/End Dates: Dapto# since 07/08/20. S/p Vanco#3, pip/tazo#4 Impression: 1. Infected ulcer, abscess and osteomyelitis, left BKA stump tib-fib due to MRSA, s/p I&D, POD#3. 2. H/o infection of Lt BKA stump requiring scraping of bone and antibiotic treatment. 3. Uncontrolled DM with neuropathy and possible gastroparesis. 4. PAD. 5. Tobacco abuse. Cessation discussed. Plan: Pt clinically improved, was admitted due to infected Lt BKA stump due to MRSA with osteomyelitis. Also, uncontrolled DM and PAD. S/p I&D of Lt BKA stump, POD#3. Afebrile, hemodynamically ok. Continue present antb for 6 weeks through 08/20/20. Cessation of tobacco emphasized, 5 minutes spent. F/U with surgeon. OPAT form in chart. Pepito Sevilla MD * Taz Gallegos DO - 07/09/2020 10:31 AM EST Department of Internal Medicine Division of Endocrinology, Diabetes, & Metabolism Endocrinology PROGRESS Note Patient Name: Tori Cantor : 1975 AGE: 45 y.o. Room/Bed: 151/1512 Admission Date: 07/04/2020 9:59 AM Consult Date: 07/05/20 Visit Date: 07/09/2020 Reason for Endocrine Consult: Uncontrolled DM 1 Provider/Team Requesting Consult: Victor Manuel AMOR PCP: Elizabeth Nelson DO Outpt Pedicab Driver: yes, ABIDA De León but hasn't seen in >1 yr. ASSESSMENT: T1DM uncontrolled w/ complications Hyperglycemia Polyneuropathy Retinopathy gastroparesis Body mass index is 27.44 kg/m . H/o pancreatitis Left Stump cellulitis H/o Left BKA PLAN: The inpt antihyperglycemic regimen will be as follows: lantus 22 qHS hlog hlog low SS qAC I have asked pharmacy to change his Abx out of dextrose soln and reconstitute into a non-dextrose soln if possible. I appreciate their help. I suspect that the overnight dextrose from the Abx is contributing slightly to the overnight elevations in glucose. We'll see if this makes a difference today. Inpt GMF glucose goal 150. Inpt ICU glucose goal 150-180. Outpt goal A1C = 7%. Insulin is necessary for ongoing mgmt. FSBS to occur qAC/HS/PRN for s/s of hyper-/hypoglycemia. FSBS data will be used to determine the next steps in antihyperglycemic medication titration duringhospital stay. If hypoglycemia were to occur it should be treated per hospital protocol. Diet recommendation: carb controlled 60 gram limit no juice w/ trays Pedicab Driver On-Call: DELORES (daytime); MELE (5p-8a) Preferred Method of Communication/Reaching: [employer]. The above physician should be paged w/ questions/concerns about items being managed by Endocrinology Team. If there are any questions or concerns related to the info in this progress note please page the oncall insolvency consultant directly. On-Call information can be found in the [facility] Online Directory. We can also be reached by [employer] communication system. We appreciate the opportunity to participate in this pt's ongoing medical care. ANTICIPATED ENDOCRINE HOME GOING RECOMMENDATIONS: Optimized for Discharge from Endocrine standpoint: Yes Home Going Endocrine Rx Recommendations-- Pt to use current hosp insulin doses using home insulins. Outpt Follow Up-- 4-8 wks Appointment request sent to Endo office Staff: Yes SUBJECTIVE/HPI: CHIEF COMPLAINT: Cellulitis Type of DM: 1 Onset of DM: age 11 Home DM Medication Regimen: lantus 28 once daily Regular insulin on a sliding scale if his sugar is high. Typically doesn't take w/ meals since hereports he doesn't eat much. DM control (last A1c/glucose data): Lab Results Component Value Date LABA1C >14.0 (H) 07/05/2020 Lab Results Component Value Date EAG 355 07/05/2020 Upset with Vu Wants to go home instead of rehab if possible. awaitin PICC placement. Review of Systems All other systems reviewed and are negative. Inpt ROS: [] HAN [] diaphoresis [] tremor [] CP [] chest pressure [] palpitation [] SOB [] Abd pain [] Nausea [] Emesis [] Other: (Legend: [x] if present; [] if not present) OBJECTIVE: Vitals: 07/08/20 1526 07/08/20 2352 07/09/20 0304 07/09/20 0720 BP: 118/66 (!) 140/84 124/87 119/77 Pulse: 92 78 79 83 Resp: 20 18 16 18 Temp: 96.8 F (36 C) 98.2 F (36.8 C) 98.5 F (36.9 C) 98.2 F (36.8 C) TempSrc: Temporal Temporal Temporal Temporal SpO2: 97% 98% 100% 98% Weight: Height: Physical Exam Vitals signs reviewed. Constitutional: General: He is not in acute distress. Appearance: He is well-developed. He is not diaphoretic. HENT: Head: Normocephalic and atraumatic. Right Ear: External ear normal. Left Ear: External ear normal. Eyes: General: No scleral icterus. Conjunctiva/sclera: Conjunctivae normal. Pulmonary: Effort: Pulmonary effort is normal. No respiratory distress. Neurological: Mental Status: He is alert and oriented to person, place, and time. 24 hour intake/output: Intake/Output Summary (Last 24 hours) at 07/09/2020 1032 Last data filed at 07/09/2020 0720 Gross per 24 hour Intake 510 ml Output 1720 ml Net -1210 ml Diet: Dietary Nutrition Supplements: Diabetic Oral Supplement DIET CARB CONTROL; Carb Control: 4 carb choices (60 gms)/meal Medications (as per EMR): HomeMeds: Prior to Admission medications Medication Sig Start Date End Date Taking? Authorizing Provider gabapentin (NEURONTIN) 300 MG capsule Take 1 capsule by mouth 3 times daily for 180 days. Intended supply: 30 days 05/09/20 11/05/20 Yes Elizabeth Nelson, LANTUS SOLOSTAR 100 UNIT/ML injection pen Inject 30 Units into the skin nightly 05/09/20 Yes Elizabeth Nelson, DO lisinopril (PRINIVIL;ZESTRIL) 10 MG tablet Take 1 pill daily 05/09/20 Yes Elizabeth Nelson DO pantoprazole (PROTONIX) 40 MG tablet Take 1 tablet by mouth every morning (before breakfast) 05/09/20 Yes Elizabeth Nelson, DO insulin regular (HUMULIN R) 100 UNIT/ML injection Inject 12 Units into the skin See Admin Instructions Inject as sliding scale if 150-200= 2 units, 201-250 = 4 units, 251-300=6 units, 301-350=8 units, 351-400= 10 units, 401-450=12 units before meals and at bedtime Max dosage of 48 units daily 03/28/20 Yes Elizabeth Nelson, DO sennosides-docusate sodium (SENOKOT-S) 8.6-50 MG tablet Take 2 tablets by mouth 2 times daily 03/28/20 Elizabeth Nelson, DO nystatin (MYCOSTATIN) [id number] UNIT/GM cream Apply topically 2 times daily. 03/28/20 Elizabeth Nelson, DO metoclopramide (REGLAN) 5 MG tablet Take 1 tablet by mouth 3 times daily 03/28/20 Elizabeth Nelson,DO DULoxetine (CYMBALTA) 60 MG extended release capsule Take 2 capsules by mouth daily 03/28/20 Elizabeth Nelson, DO diclofenac sodium (VOLTAREN) 1 % GEL Apply 4 g topically 4 times daily 03/28/20 Elizabeth Nelson, DO cilostazol (PLETAL) 100 MG tablet Take 1 tablet by mouth 2 times daily 03/28/20 Elizabeth Nelson, DO acetaminophen (TYLENOL) 325 MG tablet Take 2 tablets by mouth every 4 hours as needed for Pain 03/28/20 Elizabeth Nelson, DO polyethylene glycol (GLYCOLAX) 17 GM/SCOOP powder Take 17 g by mouth daily 03/28/20 Elizabeth Nelson, DO aspirin 81 MG EC tablet Take 1 tablet by mouth daily 03/28/20 Elizabeth Nelson, DO Insulin Pen Needle (PEN NEEDLES 31GX5/16) 31G X 8 MM MISC 1 each by Does not apply route daily 11/24/19 12/24/19 Elizabeth Nelson, DO Insulin Syringe-Needle U-100 ([employer] INSULIN SYRINGE) 31G X 5/16 0.3 ML MISC 1 each by Does not apply route daily 09/30/19 Elizabeth Nelson, DO blood glucose monitor strips type II Dm, E11.9, test once per day 09/30/19 Elizabeth Nelson DO Lancets MISC 1 each by Does not apply route 4 times daily 09/30/19 Elizabeth Nelson DO aspirin 81 MG tablet Take 81 mg by mouth daily Historical Provider, MD [employer] INSULIN SYR 0.5ML/31G 31G X 5/16 0.5 ML MISC USE ONE SYRINGE 4 TIMES DAILY BEFORE MEALS ANDAT BEDTIME 07/06/18 Elizabeth Nelson DO Scheduled Meds: aspirin 81 mg Oral BID [START ON 07/10/2020] insulin lispro 6 Units Subcutaneous QAM AC insulin lispro 8 Units Subcutaneous Daily before lunch insulin lispro 8 Units Subcutaneous Dinner insulin glargine 22 Units Subcutaneous Nightly daptomycin (CUBICIN) IVPB 6 mg/kg Intravenous Q24H lidocaine 1 % injection 5 mL Intradermal Once sodium chloride flush 10 mL Intravenous 2 times per day sodium chloride flush 10 mL Intravenous 2 times per day heparin flush 250 Units Intravenous 2 times per day insulin lispro 0-6 Units Subcutaneous TID influenza virus vaccine 0.5 mL Intramuscular Prior to discharge sodium chloride flush 10 mL Intravenous 2 times per day DULoxetine 120 mg Oral Daily cilostazol 100 mg Oral BID gabapentin 300 mg Oral TID lisinopril 10 mg Oral Daily metoclopramide 5 mg Oral TID pantoprazole 40 mg Oral QAM AC sennosides-docusate sodium 2 tablet Oral BID tamsulosin 0.4 mg Oral Daily Continuous Infusions: sodium chloride Stopped (07/07/20 0721) dextrose PRN Meds:sodium chloride flush, heparin flush, sodium chloride flush, [DISCONTINUED] promethazine OR ondansetron, polyethylene glycol, acetaminophen OR acetaminophen, glucose, dextrose, glucagon (rDNA), dextrose, oxyCODONE Diagnostic Workup: I reviewed pertinent Laboratory results, Radiographic results, and Other Clinical Notes at the timeof today's encounter. BMP: Recent Labs 07/07/20 0522 07/08/20 0453 07/09/20 0311 NA 132* 134* 133* K 4.5 4.5 4.3 CL 101 102 98 CO2 23 29 30 BUN 11 12 12 CREATININE 0.51* 0.57 0.56 GLUCOSE 325* 275* 293* Glucose: Recent Labs 07/07/20 1121 07/07/20 1642 07/07/207 07/08/20 0738 07/08/20 1127 07/08/20 1641 07/08/20201407/09/20 0626 POCGLU 357* 314* 323* 337* 283* 279* 240* 262* HgbA1C: No results for input(s): LABA1C in the last 72 hours. Hepatic: Recent Labs 07/09/20 0311 ALKPHOS 70 ALT 10 AST 24 PROT 6.6 BILITOT 0.2 LABALBU 3.5 Lipids: No results for input(s): CHOL, TRIG, HDL, LDLCALC in the last 72 hours. Invalid input(s): LDL TSH: Lab Results Component Value Date TSH 1.190 11/17/2019 T4FREE 1.26 10/07/2016 Radiology reportsas per the Radiologist Radiology: Xr Tibia Fibula Left (2 Views) Result Date: 07/04/2020 Patient Name: TORI CANTOR Diagnostic Radiology ACCESSION EXAMDATE/TIME PROCEDURE ORDERING PROVIDER [id number] 07/04/2020 11:56 EST CR Tibia/Fibula 2 Views MD JORGE LUIS, MARIBELL Rosemarie Left CPT code 00559 Reason For Exam (CR Tibia/Fibula 2 Views Left) Patient has below the knee application. Patient has likely cellulitis and abscess at his stump. Report Indication:Possible cellulitis. Findings and impression: Left leg tibia fibula performed two views. Below the knee amputation. No bony lytic process. No soft tissue gas. Some edema of the soft tissues present suspicious for cellulitis. Please correlate clinically. 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) Past Surgical History: Past Surgical History: Procedure Laterality Date AMPUTATION Left 06/2019 LBKA COLONOSCOPY 03/17/2016 DENTAL SURGERY UPPER GASTROINTESTINAL ENDOSCOPY 2014 UPPER GASTROINTESTINAL ENDOSCOPY 11/02/2017 Allergy(ies): No Known Allergies Family History: Family History Problem Relation Age of Onset Diabetes Mother Heart Disease Mother High Blood Pressure Mother Stroke Mother Diabetes Father Heart Disease Father High Blood Pressure Father Stroke Father Social History: Social History Tobacco Use Smoking status: Current Every Day Smoker Packs/day: 0.50 Years: 30.00 Pack years: 15.00 Types: Cigarettes Smokeless tobacco: Never Used Substance Use Topics Alcohol use: Not Currently Alcohol/week: 0.0 standard drinks Comment: Rare Drug use: Not Currently Frequency: 1.0 times per week Types: Marijuana Portions of the information within this encounter were entered using an electronic dictation system. Best attempts were made to edit/proofread the information prior to note completion. Despite the review of information, some errors may remain. If there are questions related to the information contained within the note please contact the signing physician directly. I spent 25 minutes with the pt which involved more than 51% of the time in coordination of care, medical evaluation, review of records, and/or counseling of the pt regarding his/her condition/diseasestate/prognosis on the date of this note. * Mo Luis MD - 07/09/2020 7:46 AM EST H: Recent Labs 07/09/20 0311 HGB 11.4* WBC 6.5 VS: Blood pressure 119/77, pulse 83, temperature 98.2 F (36.8 C), temperature source Temporal, resp. rate 18, height 5' 9 (1.753 m), weight 185 lb 13.6 oz (84.3 kg), SpO2 98 %. Doing better. Wants to go home. PE: Dressing C&D Xray: n/a IMP: Revision BKA LLE for osteo Jun PLAN: OK for D/C when PICC and atb arranged. Would continue ASA 81 mg bid x 2 wks for DVT prophy Will need assist w/ dressing changes if goes home -- dressing change qod Ortho D/C info on chart. * Angélica Rendon, RD, LD - 07/08/2020 1:12 PM EST Comprehensive Nutrition Assessment Type and Reason for Visit: Initial, Positive Nutrition Screen, Wound(pt with osteo of l bka - needed additonal debridement .07/06 - has picc for home antibiotics) Nutrition Recommendations/Plan: 1)suggest to continue carb controlled - 4 carbs/ meal diet for glucose control 2)provided sample menus and updated information on carb counting - gets meals delivered 3)patient on reglan for gastroparesis 4) per MNT protocol, Initiated chocolate Ensure hi pro bid( 160 brent, 16 gm Pro/serving - to help meet Needs wound- healing 5)Please document PO intakes consistently in the flowsheet to better assess intake adequacy. 6)Monitor labs, status, intakes to reassess. Nutrition Assessment: per NPwho presents with complaints of left stump infection. He went to seen his Orthopedist last week for evaluation of his right charcot foot. He was referred to Dr. Josias estrada evaluation. He reports that shortly after his appointment, he noticed some redness/drainagefrom his left stump- he had prior left BKA in 2019 after complications from an ankle fracture ([facility]).Pt reports that he only takes his Lantus routinely at home- does not check his blood sugars routinely bc he has issues getting drops of blood onto the glucometer. Takes Regular insulin sporadically based on his symptoms.(very poorly controlled dm, hep c) Malnutrition Assessment: Malnutrition Status: Insufficient data Context: Acute Illness Findings of the 6 clinical characteristics of malnutrition: Energy Intake: Unable to assess Weight Loss: Unable to assess Body Fat Loss: Unable to assess Muscle Mass Loss: Unable to assess Fluid Accumulation: No significant fluid accumulation Entry Level Mechanical Engineer Strength: Not Performed Estimated Daily Nutrient Needs: Energy (kcal): 4394-1606; Weight Used for Energy Requirements: Admission Protein (g): 90; Weight Used for Protein Requirements: Admission(1.2) Fluid (ml/day): per md; Method Used for Fluid Requirements: Nutrition Related Findings: inconsistent wt, hbaic .14( had been > 12 since 2016) Wounds: Open Wounds(gisele 17) Current Nutrition Therapies: Dietary Nutrition Supplements: Diabetic Oral Supplement DIET CARB CONTROL; Carb Control: 4 carb choices (60 gms)/meal Anthropometric Measures: Height: 5' 9 (175.3 cm) Current Body Weight: 185 lb (83.9 kg) Admission Body Weight: 165 lb (74.8 kg) Usual Body Weight: 156 lb (70.8 kg)(to 160 lbs 01/10/20) Wilson Body Weight: 160 lbs; % Wilson Body Weight 115.6 % BMI: 27.3 Adjusted Body Weight: 195.9; Amputation Adjusted BMI: 28.9 BMI Categories: Overweight (BMI 25.0-29.9) Nutrition Diagnosis: Increased nutrient needs related to catabolic illness(osteo , infection) as evidenced by wounds Food & Nutrition-related knowledge deficit related to cognitive or neurological impairment, psychological cause or life stress, endocrine dysfuntion as evidenced by lab values Nutrition Interventions: Food and/or Nutrient Delivery: Continue Current Diet, Start Oral Nutrition Supplement Nutrition Education/Counseling: Education needed, Education initiated(mild interest- does not checkbg) Coordination of Nutrition Care: Continue to monitor while inpatient Goals: pt will receive,tolerate adequate nutrition to meet needs for wound healing, control glucose Nutrition Monitoring and Evaluation: Behavioral-Environmental Outcomes: Beliefs and Attitutes, Knowledge or Skill Food/Nutrient Intake Outcomes: Food and Nutrient Intake, Supplement Intake Physical Signs/Symptoms Outcomes: Biochemical Data, Hemodynamic Status, Nutrition Focused Physical Findings, Meal Time Behavior, Skin, Weight Discharge Planning: Recommend pursue outpatient diabetes education Contact: [phone] * Mo Elizabeth, PT - 07/08/2020 12:29 PM EST Physical Therapy Facility/Department: [facility] TELEMETRY Initial Assessment NAME: Tori Cantor : 1975 Date of Service: 07/08/2020 Discharge Recommendations: IP Rehab PT Equipment Recommendations Equipment Needed: Yes Mobility Devices: Wheelchair Wheelchair: Light Weight Other: REMOVABLE ARM REST IF D/C TO HOME Assessment Body structures, Functions, Activity limitations: Decreased functional mobility ;Decreased balance;Decreased strength;Decreased endurance Assessment: Patient is able to transfer standing pivot to w/c with SBA ,bed moblity supine-sit SBA Prognosis: Good Decision Making: Medium Complexity History: Pt presented to ED on 07/04 with cellulitis and infection of L BKA resulting in revision on 07/07. Exam: AM-PAC Clinical Presentation: This patient underwent s/p revision of LEFT BKA with curent impairments withpain and moblity derease ROM/strength left leg thus will benifit from skilled PT PT Education: Goals;PT Role;Plan of Care;Transfer Training Patient Education: Goals and/or treatment plan was established and collaberated with patient REQUIRES PT FOLLOW UP: Yes Activity Tolerance Activity Tolerance: Patient Tolerated treatment well Patient Diagnosis(es): The primary encounter diagnosis was Cellulitis of left lower extremity. A diagnosis of Hyperglycemia was also pertinent to this visit. has a past medical history of Colitis, Depression, Diabetes mellitus type 1 with manifestations, uncontrolled (HCC), Gastroparesis, GERD (gastroesophageal reflux disease), Hepatitis C, Hypertension, Hyponatremia, Neuropathy, Osteoarthritis, and Type I (juvenile type) diabetes mellitus with neurological manifestations, uncontrolled(250.63). has a past surgical history that includes Upper gastrointestinal endoscopy (2013); Dental surgery; Colonoscopy (03/17/2016); Upper gastrointestinal endoscopy (11/02/2017); and amputation (Left, 06/2019). Restrictions Restrictions/Precautions Restrictions/Precautions: General Precautions, Fall Risk(LEFT BKA,ALYSIA GARCIA) Required Braces or Orthoses?: No Vision/Hearing Vision: Within Functional Limits Hearing: Within functional limits Subjective General Chart Reviewed: Yes Patient assessed for rehabilitation services?: Yes Family / Caregiver Present: No Follows Commands: Within Functional Limits Subjective Subjective: Willing to participate in PT Pain Screening Patient Currently in Pain: Yes Pain Assessment Pain Assessment: 0-10 Pain Level: 8 Pain Type: Chronic pain;Surgical pain Pain Location: Leg Pain Orientation: Left Vital Signs Patient Currently in Pain: Yes Orientation Orientation Overall Orientation Status: Within Functional Limits Social/Functional History Social/Functional History Lives With: Alone Type of Home: Apartment Home Layout: One level Home Access: Level entry Bathroom Shower/Tub: Tub/Shower unit Bathroom Toilet: Standard Bathroom Equipment: Grab bars in shower, Tub transfer bench Home Equipment: Wheelchair-manual, Rolling walker, Roll About, Standard walker ADL Assistance: Needs assistance Homemaking Assistance: Needs assistance Homemaking Responsibilities: Yes Ambulation Assistance: (W/C) Transfer Assistance: Independent Active Public Address Announcer: No Patient's Public Address Announcer Info: insurance plan provides medical transport Mode of Transportation: Friends Occupation: On disability Additional Comments: Abby Woods manager case management Cognition Cognition Overall Cognitive Status: WFL Objective Observation/Palpation Posture: Good Observation: L BKA wrap dry/intact. hemovac and IV intact as well. AROM RLE (degrees) RLE AROM: WFL AROM LLE (degrees) LLE General AROM: ~5-90 degrees supine knee flexion Strength RLE Strength RLE: Exception R Hip Flexion: 3+/5 R Knee Flexion: 4-/5 R Knee Extension: 4-/5 R Ankle Dorsiflexion: 3+/5 Strength LLE Strength LLE: Exception L Hip Flexion: 3+/5 L Hip ABduction: 3+/5 L Knee Flexion: 3+/5 L Knee Extension: 3+/5 Tone RLE RLE Tone: Normotonic Tone LLE LLE Tone: Normotonic Motor Control Gross Motor?: WFL Sensation Overall Sensation Status: Impaired(parathesia in legs) Bed mobility Supine to Sit: Stand by assistance Sit to Supine: Stand by assistance Scooting: Stand by assistance Transfers Stand Pivot Transfers: Stand by assistance(to w/c) Ambulation Ambulation?: No Stairs/Curb Stairs?: No Balance Posture: Fair Sitting - Static: Good Sitting - Dynamic: Good;- Standing - Static: Poor Plan Plan Times per week: 4 visits Times per day: Daily Current Treatment Recommendations: Strengthening, Transfer Training, Endurance Training, Balance Training, Functional Mobility Training, Patient/Caregiver Education & Training, Safety Education & Training Plan Comment: Plan of care supervsion transferred to Rehab Services Dept physical therapist Safety Devices Type of devices: Gait belt, Call light within reach, Positioning belt, Left in bed Restraints Initially in place: No OutComes Score AM-PAC Mobility Inpatient How much difficulty turning over in bed?: None How much difficulty sitting down on / standing up from a chair with arms?: A Little How much difficulty moving from lying on back to sitting on side of bed?: None How much help from another person moving to and from a bed to a chair?: A Little How much help from another person needed to walk in hospital room?: Total How much help from another person for climbing 3-5 steps with a railing?: Total AM-PAC Inpatient Mobility Raw Score : 16 AM-PAC Inpatient T-Scale Score : 40.78 Mobility Inpatient CMS 0-100% Score: 54.16 Mobility Inpatient CMS G-Code Modifier : CK AM-PAC Score AM-PAC Inpatient Mobility Raw Score : 16 (07/08/20 1220) AM-PAC Inpatient T-Scale Score : 40.78 (07/08/20 1220) Mobility Inpatient CMS 0-100% Score: 54.16 (07/08/20 1220) Mobility Inpatient CMS G-Code Modifier : CK (07/08/200) Goals Short term goals Time Frame for Short term goals: 4 visits Short term goal 1: Perform RIGHTBKA AROM and right LLE exercises to improve function Short term goal 2: Bed mobility supine-sit mod I Short term goal 3: Transfers standing pivot to w/c mod I Patient Goals Patient goals : HOME Therapy Time Individual Concurrent Group Co-treatment Time In 0921 Time Out 0931 Minutes 10 Mo Elizabeth PT * Marie Lopez, OT - 07/08/2020 11:47 AM EST Occupational Therapy Occupational Therapy Initial Assessment Date: 07/08/2020 Patient Name: Tori Cantor : 1975 Date of Service: 07/08/2020 Discharge Recommendations: Continue to assess pending progress, IP Rehab OT Equipment Recommendations Equipment Needed: Yes(If d/c'ing home, pt will require wheelchair with removeable arm rests and raised toilet seat with arms.) Mobility Devices: Wheelchair;ADL Assistive Devices Wheelchair: (Pt requires wheelchair with removeable arm rests in order to perform SB transfers which increase safety. Pts current wheelchair is unsteady and requires therapist to hold it during transfers. Pt lives alone and has hx of multiple falls d/t unsteady WC.) ADL Assistive Devices: Toileting - Raised Toilet Seat with arms(Pt expected to benefit from raised toilet seat with arms d/t lack of grab bars in bathroom at home and inadequate room for BSC. Pt reports frequent falls in bathroom.) Assessment Performance deficits / Impairments: Decreased functional mobility ;Decreased balance;Decreased safeawareness;Decreased ADL status;Decreased high-level IADLs;Decreased endurance;Decreased sensation Assessment: Pt presented to ED on 07/04 with cellulitis and infection of L BKA resulting in revision on 07/07. Prior to admission, pt reports living alone and performing ADLs independently. However, pt acknowledges that the quality of ADL performance has been declining. Additionally, pt has difficulty cooking and performing IADLs resulting in having meals delivered. Upon eval, pt required CGA formobility, transfers, and toileting. Pt currently owns a wheelchair, however, the wheelchair is unsteady and has resulted in multiple falls during transfers at home per pt report. Pt engaged in additional OT tx to practice safe transfers this date. Pt deficits include decreased safety, balance, endurance, and overal occupational performance. Pt expected to benefit from skilled OT services to address all aformentioned deficits and improve QOL during occuptional performance. Recommending IRF, however will continue to assess pending progress. If pt is to d/c home from this facility, recommending wheelchair with removeable arm rests and toilet raiser with hand rails to improve safety during transfers and mobility. Prognosis: Good Decision Making: Medium Complexity History: PMH significant for L BKA in 2019 and hx of diabetes. Pt presented to ED on 07/04 with cellulitis and infection of L BKA resulting in revision on 07/07. Additional PMH listed above. Exam: AM-PAC Assistance / Modification: CGA OT Education: OT Role;Plan of Care;Transfer Training;Equipment Patient Education: Pt received education about safety with transfers including practicing new transfer technique. Pt receptive to education. Barriers to Learning: none. REQUIRES OT FOLLOW UP: Yes Activity Tolerance Activity Tolerance: Patient limited by pain Activity Tolerance: Pt able to perform multiple transfers, however, pt activity tolerance limited d/t pain in R Charcot foot. Safety Devices Safety Devices in place: Yes Type of devices: All fall risk precautions in place;Gait belt;Patient at risk for falls;Left in bed;Call light within reach;Nurse notified Patient Diagnosis(es): The primary encounter diagnosis was Cellulitis of left lower extremity. A diagnosis of Hyperglycemia was also pertinent to this visit. has a past medical history of Colitis, Depression, Diabetes mellitus type 1 with manifestations, uncontrolled (HCC), Gastroparesis, GERD (gastroesophageal reflux disease), Hepatitis C, Hypertension, Hyponatremia, Neuropathy, Osteoarthritis, and Type I (juvenile type) diabetes mellitus with neurological manifestations, uncontrolled(250.63). has a past surgical history that includes Upper gastrointestinal endoscopy (2013); Dental surgery; Colonoscopy (03/17/2016); Upper gastrointestinal endoscopy (11/02/2017); and amputation (Left, 06/2019). Restrictions Restrictions/Precautions Restrictions/Precautions: General Precautions, Fall Risk(LEFT BKA,ALYSIA GARCIA) Required Braces or Orthoses?: No Subjective General Chart Reviewed: Yes Patient assessed for rehabilitation services?: Yes Family / Caregiver Present: No Subjective Subjective: Pt awake in bed, agreeable to OT eval. General Comment Comments: per NSG, pt OK to see. Patient Currently in Pain: Yes Pain Assessment Pain Assessment: 0-10 Pain Level: 8 Pain Type: Chronic pain;Surgical pain Pain Location: Leg Pain Orientation: Left Non-Pharmaceutical Pain Intervention(s): Distraction;Repositioned;Ambulation/Increased Activity Response to Pain Intervention: Patient Satisfied Pre Treatment Pain Screening Intervention List: Patient able to continue with treatment;Nurse/Physician notified Vital Signs Patient Currently in Pain: Yes Social/Functional History Social/Functional History Lives With: Alone Type of Home: Apartment Home Layout: One level Home Access: Level entry Bathroom Shower/Tub: Tub/Shower unit Bathroom Toilet: Standard Bathroom Equipment: Grab bars in shower, Tub transfer bench Home Equipment: Wheelchair-manual, Rolling walker, Roll About, Standard walker ADL Assistance: Needs assistance Homemaking Assistance: Needs assistance Homemaking Responsibilities: Yes Ambulation Assistance: (W/C) Transfer Assistance: Independent Active Public Address Announcer: No Patient's Public Address Announcer Info: insurance plan provides medical transport Mode of Transportation: Friends Occupation: On disability Additional Comments: Abby Woods manager case management Objective Vision: Within Functional Limits Hearing: Within functional limits Orientation Overall Orientation Status: Within Functional Limits Observation/Palpation Posture: Good Observation: L BKA wrap dry/intact. hemovac and IV intact as well. Balance Sitting Balance: Independent Standing Balance: Contact guard assistance Standing Balance Time: ~ 2 minutes Activity: Static/dynamic standing at bedside Comment: Pt stood at bedside and toilet prior to performing transfers with CGA. Pt relied on furniture, grab bars, and arm rests from wheelchair for support. Pt performed transfers with no LOB noted. Functional Mobility Functional Mobility Comments: Pt declined to participate functional mobility d/t pain from R charcot foot. Toilet Transfers Toilet - Technique: Stand pivot Equipment Used: Grab bars Toilet Transfer: Contact guard assistance Toilet Transfers Comments: Pt relies heavily on grab bars d/t balance deficits. Pt able to perform the transfer with CGA and no noted LOB. Wheelchair Bed Transfers Wheelchair/Bed - Technique: Stand pivot Equipment Used: Other;Wheelchair(Slideboard) Level of Asssistance: Stand by assistance;Contact guard assistance Wheelchair Transfers Comments: As described in previous transfer section, pt practiced two different transfer techniques from bed to wheelchair. Pt performed stand pivot to wheelchair requiring CGA and therapist to stabilize wheelchair d/t decreased stability of wheelchair. SB transfer was then trialed with good success and SBA, however, pts current wheelchair does not allow for this type of transfer d/t arm rests that cannot be removed. ADL Feeding: Independent Grooming: Independent UE Bathing: Modified independent LE Bathing: Stand by assistance UE Dressing: Independent LE Dressing: Contact guard assistance Toileting: Contact guard assistance Additional Comments: Pt requires CGA progressing to SBA when standing at grab bar to don pants overhips. Bed mobility Supine to Sit: Stand by assistance Sit to Supine: Stand by assistance Scooting: Stand by assistance Comment: Pt performed bed mobility with SBA this date. Transfers Stand Pivot Transfers: Contact guard assistance Slide Board: Stand by assistance Stand to sit: Contact guard assistance Transfer Comments: During eval, pt demo'd his stand pivot transfer from bed to wheelchair with CGA.Pt used arm rests and bed for support when standing. Pt required therapist to stablize wheelchair d/t wheelchair moving and slightly tipping despite wheelchair brakes being locked. For safety purposes. pt then engaged in tx session to practice alternative transfers. Pt received education and demonstration on how to perform a slideboard transfer. Pt then practiced bed to wheelchair slideboard transfer with SBA and good safety. Cognition Overall Cognitive Status: WFL Perception Overall Perceptual Status: WFL Sensation Overall Sensation Status: Impaired(parathesia in legs) LUE AROM (degrees) LUE AROM : WNL Left Hand AROM (degrees) Left Hand AROM: WNL RUE AROM (degrees) RUE AROM : WNL Right Hand AROM (degrees) Right Hand AROM: WNL LUE Strength Gross LUE Strength: WNL L Hand General: 5/5 RUE Strength Gross RUE Strength: WNL R Hand General: 5/5 Plan Plan Times per week: 3 visits Current Treatment Recommendations: Wheelchair Mobility Training, Gait Training, Safety Education & Training, Positioning, Balance Training, Patient/Caregiver Education & Training, Self-Care /ADL, Equipment Evaluation, Education, & procurement, Home Management Training, Endurance Training Plan Comment: POC and goals established in collaboration with pt. AM-PAC Score [facility] Inpatient Daily Activity Raw Score: 21 (07/08/20 1149) AM-[facility] Inpatient ADL T-Scale Score : 44.27 (07/08/20 1149) ADL Inpatient CMS 0-100% Score: 32.79 (07/08/20 1149) ADL Inpatient CMS G-Code Modifier : CJ (07/08/20 114) Goals Short term goals Time Frame for Short term goals: 3 visits Short term goal 1: Pt will perform functional mobility and transfers with Mod I using LRAD. Short term goal 2: Pt will perform toileting with Mod I including transfer. Short term goal 3: Pt will perform LB ADLs with Mod I. Short term goal 4: Pt will perform UB ADLs and self-care tasks with Mod I. Patient Goals Patient goals : To improve independence and quality of ADLs and IADLs Therapy Time Individual Concurrent Group Co-treatment Time In 08 Time Out 0930 Minutes 59 Timed Code Treatment Minutes: 23 Minutes(2 TA) Variance: 14(therapist had to retreive additional equipment for transfer training.) Patient's occupational therapy plan of care supervision is transferred to Inpatient Therapy Services Department Occupational Therapist Marie Lopez OT * Mo Luis MD - 07/08/2020 9:51 AM EST H: Recent Labs 07/08/20 0453 HGB 11.2* WBC 7.1 VS: Blood pressure 116/82, pulse 84, temperature 97.4 F (36.3 C), temperature source Temporal, resp. rate 18, height 5' 9 (1.753 m), weight 185 lb 13.6 oz (84.3 kg), SpO2 97 %. No complaints. Appears comfortable. Back to baseline transfer status w/ PT. Drain output down -- 12cc last shift. PE: Dressing changed, drain pulled. No necrosis, no drainage or hematoma. No sign of infection. Xray: N/a IMP: POD 2 revision BKA left for osteo PLAN: Discussed w/ ID. PICC in process. Taking high doses of narcotic -- will taper down. 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 This is concerning that both could be present deep and I do not feel comfortable treating for MSSA alone. Therefore, will Rx with daptomycin (which will treat both). Plan: 1. Discontinue Vancomycin and Pip/Tazobactam 2. Start daptomycin 3. PICC line tomorrow AM Hopefully home Thursday on IV Rx if all can be arranged. Spencer Villela M.D. Infectious Disease Service (1) Cell (2) PerfectServe: Available (3) ID Answering Service: * Taz Gallegos DO - 07/08/2020 8:37 AM EST Department of Internal Medicine Division of Endocrinology, Diabetes, & Metabolism Endocrinology PROGRESS Note Patient Name: Tori Cantor : 1975 AGE: 45 y.o. 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 ASSESSMENT: T1DM uncontrolled w/ complications Hyperglycemia Polyneuropathy Retinopathy gastroparesis Body mass index is 27.44 kg/m . H/o pancreatitis Left Stump cellulitis H/o Left BKA PLAN: The inpt antihyperglycemic regimen will be as follows: lantus 20 qHS hlog 6/6/6 hlog low SS qAC I have asked pharmacy to change his Abx out of dextrose soln and reconstitute into a non-dextrose soln if possible. I appreciate their help. I suspect that the overnight dextrose from the Abx is contributing slightly to the overnight elevations in glucose. We'll see if this makes a difference today. Inpt GMF glucose goal 150. Inpt ICU glucose goal 150-180. Outpt goal A1C = 7%. Insulin is necessary for ongoing mgmt. FSBS to occur qAC/HS/PRN for s/s of hyper-/hypoglycemia. FSBS data will be used to determine the next steps in antihyperglycemic medication titration duringhospital stay. If hypoglycemia were to occur it should be treated per hospital protocol. Diet recommendation: carb controlled 60 gram limit no juice w/ trays Pedicab Driver On-Call: MELE Preferred Method of Communication/Reaching: [employer]. The above physician should be paged w/ questions/concerns about items being managed by Endocrinology Team. If there are any questions or concerns related to the info in this progress note please page the oncall insolvency consultant directly. On-Call information can be found in the [place] Online Directory. We can also be reached by [employer] communication system. We appreciate the opportunity to participate in this pt's ongoing medical care. ANTICIPATED ENDOCRINE HOME GOING RECOMMENDATIONS: Optimized for Discharge from Endocrine standpoint: Yes Home Going Endocrine Rx Recommendations-- Pt to use current hosp insulin doses using home insulins. Outpt Follow Up-- 4-8 wks Appointment request sent to Endo office Staff: Yes SUBJECTIVE/HPI: CHIEF COMPLAINT: Cellulitis Type of DM: 1 Onset of DM: age 11 Home DM Medication Regimen: lantus 28 once daily Regular insulin on a sliding scale if his sugar is high. Typically doesn't take w/ meals since hereports he doesn't eat much. DM control (last A1c/glucose data): Lab Results Component Value Date LABA1C >14.0 (H) 07/05/2020 Lab Results Component Value Date EAG 355 07/05/2020 Pt reports pain of stump. Says it is uncontrolled. Pt denies HS snacks. Raises concern about his elevated sugars. Review of Systems All other systems reviewed and are negative. Inpt ROS: [] HAN [] diaphoresis [] tremor [] CP [] chest pressure [] palpitation [] SOB [] Abd pain [] Nausea [] Emesis [] Other: (Legend: [x] if present; [] if not present) OBJECTIVE: Vitals: 07/07/20 2346 07/08/20 0334 07/08/20 0658 07/08/20 0800 BP: 138/85 135/86 116/82 Pulse: 71 72 84 Resp: 14 14 18 Temp: 98.2 F (36.8 C) 97.9 F (36.6 C) 97.4 F (36.3 C) TempSrc: Temporal Temporal Temporal SpO2: 98% 97% 97% Weight: 185 lb 13.6 oz (84.3 kg) Height: Physical Exam Vitals signs reviewed. Constitutional: General: He is not in acute distress. Appearance: He is well-developed. He is not diaphoretic. HENT: Head: Normocephalic and atraumatic. Right Ear: External ear normal. Left Ear: External ear normal. Eyes: General: No scleral icterus. Conjunctiva/sclera: Conjunctivae normal. Pulmonary: Effort: Pulmonary effort is normal. No respiratory distress. Skin: General: Skin is warm. Neurological: Mental Status: He is alert and oriented to person, place, and time. 24 hour intake/output: Intake/Output Summary (Last 24 hours) at 07/08/2020 0837 Last data filed at 07/08/2020 0600 Gross per 24 hour Intake Output 2322 ml Net -2322 ml Diet: DIET CARB CONTROL; Carb Control: 4 carb choices (60 gms)/meal Medications (as per EMR): HomeMeds: Prior to Admission medications Medication Sig Start Date End Date Taking? Authorizing Provider gabapentin (NEURONTIN) 300 MG capsule Take 1 capsule by mouth 3 times daily for 180 days. Intended supply: 30 days 05/09/20 11/05/20 Yes Elizabeth M Nelson, DO LANTUS SOLOSTAR 100 UNIT/ML injection pen Inject 30 Units into the skin nightly 05/09/20 Yes Elizabeth Nelson DO lisinopril (PRINIVIL;ZESTRIL) 10 MG tablet Take 1 pill daily 05/09/20 Yes Elizabeth Nelson DO pantoprazole (PROTONIX) 40 MG tablet Take 1 tablet by mouth every morning (before breakfast) 05/09/20 Yes Elizabeth Nelson, DO insulin regular (HUMULIN R) 100 UNIT/ML injection Inject 12 Units into the skin See Admin Instructions Inject as sliding scale if 150-200= 2 units, 201-250 = 4 units, 251-300=6 units, 301-350=8 units, 351-400= 10 units, 401-450=12 units before meals and at bedtime Max dosage of 48 units daily 03/28/20 Yes Elizabeth Nelson, DO sennosides-docusate sodium (SENOKOT-S) 8.6-50 MG tablet Take 2 tablets by mouth 2 times daily 03/28/20 Elizabeth Nelson, DO nystatin (MYCOSTATIN) 137082 UNIT/GM cream Apply topically 2 times daily. 03/28/20 Elizabeth Nelson, DO metoclopramide (REGLAN) 5 MG tablet Take 1 tablet by mouth 3 times daily 03/28/20 Elizabeth Nelson,DO DULoxetine (CYMBALTA) 60 MG extended release capsule Take 2 capsules by mouth daily 03/28/20 Elizabeth Nelson, DO diclofenac sodium (VOLTAREN) 1 % GEL Apply 4 g topically 4 times daily 03/28/20 Elizabeth Nelson, DO cilostazol (PLETAL) 100 MG tablet Take 1 tablet by mouth 2 times daily 03/28/20 Elizabeth Nelson, DO acetaminophen (TYLENOL) 325 MG tablet Take 2 tablets by mouth every 4 hours as needed for Pain 03/28/20 Elizabeth Nelson, DO polyethylene glycol (GLYCOLAX) 17 GM/SCOOP powder Take 17 g by mouth daily 03/28/20 Elizabeth Nelson, DO aspirin 81 MG EC tablet Take 1 tablet by mouth daily 03/28/20 Elizabeth Nelson, DO Insulin Pen Needle (PEN NEEDLES 31GX5/16) 31G X 8 MM MISC 1 each by Does not apply route daily 11/24/19 12/24/19 Elizabeth Nelson, DO Insulin Syringe-Needle U-100 ([employer] INSULIN SYRINGE) 31G X 5/16 0.3 ML MISC 1 each by Does not apply route daily 09/30/19 Elizabeth Nelson, DO blood glucose monitor strips type II Dm, E11.9, test once per day 09/30/19 Elizabeth Nelson, DO Lancets MISC 1 each by Does not apply route 4 times daily 09/30/19 Elizabeth Nelson DO aspirin 81 MG tablet Take 81 mg by mouth daily Historical Provider, MD [employer] INSULIN SYR 0.5ML/31G 31G X 5/16 0.5 ML MISC USE ONE SYRINGE 4 TIMES DAILY BEFORE MEALS ANDAT BEDTIME 07/06/18 Elizabeth Nelson DO Scheduled Meds: insulin glargine 18 Units Subcutaneous Nightly insulin lispro 0-6 Units Subcutaneous TID WC insulin lispro 4 Units Subcutaneous TID WC vancomycin 2,000 mg Intravenous Q12H enoxaparin 40 mg Subcutaneous Daily influenza virus vaccine 0.5 mL Intramuscular Prior to discharge sodium chloride flush 10 mL Intravenous 2 times per day piperacillin-tazobactam 3.375 g Intravenous Q8H aspirin 81 mg Oral Daily DULoxetine 120 mg Oral Daily [Held by provider] cilostazol 100 mg Oral BID gabapentin 300 mg Oral TID lisinopril 10 mg Oral Daily metoclopramide 5 mg Oral TID pantoprazole 40 mg Oral QAM AC sennosides-docusate sodium 2 tablet Oral BID tamsulosin 0.4 mg Oral Daily Continuous Infusions: sodium chloride Stopped (07/07/20 0721) dextrose PRN Meds:sodium chloride flush, [DISCONTINUED] promethazine OR ondansetron, polyethylene glycol, acetaminophen OR acetaminophen, glucose, dextrose, glucagon (rDNA), dextrose, oxyCODONE, oxyCODONE Diagnostic Workup: I reviewed pertinent Laboratory results, Radiographic results, and Other Clinical Notes at the timeof today's encounter. BMP: Recent Labs 07/06/20 0348 07/07/20 0522 07/08/20 0453 NA 137 132* 134* K 3.7 4.5 4.5 CL 108* 101 102 CO2 26 23 29 BUN 4* 11 12 CREATININE 0.44* 0.51* 0.57 GLUCOSE 145* 325* 275* Glucose: Recent Labs 07/06/20 1503 07/06/20 1641 07/06/20 1959 07/07/20 0726 07/07/20 1121 07/07/20 1642 07/07/20 2037 07/08/20 0738 POCGLU 96 112* 317* 319* 357* 314* 323* 337* HgbA1C: No results for input(s): LABA1C in the last 72 hours. Hepatic: Recent Labs 07/08/20 0453 ALKPHOS 71 ALT 9 AST 22 PROT 6.2* BILITOT 0.4 LABALBU 3.4* Lipids: No results for input(s): CHOL, TRIG, HDL, LDLCALC in the last 72 hours. Invalid input(s): LDL TSH: Lab Results Component Value Date TSH 1.190 11/17/2019 T4FREE 1.26 10/07/2016 Radiology reportsas per the Radiologist Radiology: Xr Tibia Fibula Left (2 Views) Result Date: 07/04/2020 Patient Name: TORI CANTOR Diagnostic Radiology ACCESSION EXAMDATE/TIME PROCEDURE ORDERING PROVIDER [id number] 07/04/2020 11:56 EST CR Tibia/Fibula 2 Views MD JORGE LUIS, MARIBELL [place] Left CPT code 22592 Reason For Exam (CR Tibia/Fibula 2 Views Left) Patient has below the knee application. Patient has likely cellulitis and abscess at his stump. Report Indication:Possible cellulitis. Findings and impression: Left leg tibia fibula performed two views. Below the knee amputation. No bony lytic process. No soft tissue gas. Some edema of the soft tissues present suspicious for cellulitis. Please correlate clinically. 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) Past Surgical History: Past Surgical History: Procedure Laterality Date AMPUTATION Left 06/2019 LBKA COLONOSCOPY 03/17/2016 DENTAL SURGERY UPPER GASTROINTESTINAL ENDOSCOPY 2013 UPPER GASTROINTESTINAL ENDOSCOPY 11/02/2017 Allergy(ies): No Known Allergies Family History: Family History Problem Relation Age of Onset Diabetes Mother Heart Disease Mother High Blood Pressure Mother Stroke Mother Diabetes Father Heart Disease Father High Blood Pressure Father Stroke Father Social History: Social History Tobacco Use Smoking status: Current Every Day Smoker Packs/day: 0.50 Years: 30.00 Pack years: 15.00 Types: Cigarettes Smokeless tobacco: Never Used Substance Use Topics Alcohol use: Not Currently Alcohol/week: 0.0 standard drinks Comment: Rare Drug use: Not Currently Frequency: 1.0 times per week Types: Marijuana Portions of the information within this encounter were entered using an electronic dictation system. Best attempts were made to edit/proofread the information prior to note completion. Despite the review of information, some errors may remain. If there are questions related to the information contained within the note please contact the signing physician directly. I spent 35 minutes with the pt which involved more than 51% of the time in coordination of care, medical evaluation, review of records, and/or counseling of the pt regarding his/her condition/diseasestate/prognosis on the date of this note. * Magdiel [facility] - 07/08/2020 8:28 AM EST Pharmacy Vancomycin Consult Follow-Up Note Current Dosing q12hr Recent Labs 07/07/20 0522 07/08/20 0453 BUN 11 12 Recent Labs 07/07/20 0522 07/08/20 0453 CREATININE 0.51* 0.57 Recent Labs 07/07/20 0522 07/08/20 0453 WBC 9.4 7.1 Ht Readings from Last 1 Encounters: 07/05/20 5' 9 (1.753 m) Wt Readings from Last 1 Encounters: 07/08/20 185 lb 13.6 oz (84.3 kg) Body mass index is 27.44 kg/m . Estimated Creatinine Clearance: 162 mL/min (based on SCr of 0.57 mg/dL). Trough: 11.8 Drawn 07/08 at 0453. Assessment/Plan: Trough at goal, renal function stable. Continue current dosing. Will continue to follow. Thank you. * Shiv Jenkins MD - 07/08/2020 7:36 AM EST Hospitalist Progress Note 07/08/2020 7:36 AM [phone]: Please page [place] [phone] for patient care issues. [phone]: Please page [facility] night Hospitalist for any issues. Subjective: Admit Date: 07/04/2020 PCP: Elizabeth Nelson, DO Interval History: Doing well s/p revision of left BKA. Was upset that I took away his Morphine. Explained need for PO pain medications in order to facilitate safe discharge. Pt more agreeable. Working with PT/OT today. Discussed antibiotic changes with ID and PICC plan. No overnight issues. Denies chest pain, sob, abdominal pain, nausea, vomiting, diarrhea, constipation, fevers, or chills. DIET CARB CONTROL; Carb Control: 4 carb choices (60 gms)/meal Patient Vitals for the past 96 hrs (Last 3 readings): Weight 07/08/20 0658 185 lb 13.6 oz (84.3 kg) 07/07/20 0519 180 lb (81.6 kg) 07/05/20 0330 184 lb 9.6 oz (83.7 kg) In: - Out: 2310 [Urine:2200; Drains:110] Medications: sodium chloride Stopped (07/07/20 0721) dextrose insulin glargine 18 Units Subcutaneous Nightly insulin lispro 0-6 Units Subcutaneous TID WC insulin lispro 4 Units Subcutaneous TID WC vancomycin 2,000 mg Intravenous Q12H enoxaparin 40 mg Subcutaneous Daily influenza virus vaccine 0.5 mL Intramuscular Prior to discharge sodium chloride flush 10 mL Intravenous 2 times per day piperacillin-tazobactam 3.375 g Intravenous Q8H aspirin 81 mg Oral Daily DULoxetine 120 mg Oral Daily [Held by provider] cilostazol 100 mg Oral BID gabapentin 300 mg Oral TID lisinopril 10 mg Oral Daily metoclopramide 5 mg Oral TID pantoprazole 40 mg Oral QAM AC sennosides-docusate sodium 2 tablet Oral BID tamsulosin 0.4 mg Oral Daily LABS: CBC: Recent Labs 07/06/20 0348 07/07/20 0522 07/08/20 0453 WBC 6.6 9.4 7.1 RBC 3.99* 4.60 4.21* HGB 10.3* 11.8* 11.2* HCT 32.1* 36.9* 33.6* MCV 80.3 80.3 79.7* RDW 17.2* 17.0* 16.9* PLT 189 237 221 BMP: Recent Labs 07/06/20 03407/07/20 0522 07/08/20 0453 NA 137 132* 134* K 3.7 4.5 4.5 CL 108* 101 102 CO2 26 23 29 BUN 4* 11 12 CREATININE 0.44* 0.51* 0.57 GLUCOSE 145* 325* 275* CALCIUM 7.6* 8.8 8.8 ANIONGAP 3 8 3 LIVER PROFILE: Recent Labs 07/06/20 03407/07/20 0522 07/08/20 0453 AST 20 25 22 ALT 6 10 9 BILITOT 0.3 0.5 0.4 ALKPHOS 61 77 71 LABALBU 2.9* 3.4* 3.4* PROT 5.6* 6.4 6.2* PT/INR: No results for input(s): PROTIME, INR in the last 72 hours. CARDIAC ENZYMES: No results for input(s): TROPONINI in the last 72 hours. Procalcitonin: Lab Results Component Value Date PROCAL <0.10 07/04/2020 Glucose: Recent Labs 07/06/20 1641 07/06/20 1959 07/07/20 0726 07/07/20 1121 07/07/20 1642 07/07/202036 POCGLU 112* 317* 319* 357* 314* 323* Objective: Vitals: BP 135/86 Pulse 72 Temp 97.9 F (36.6 C) (Temporal) Resp 14 Ht 5' 9 (1.753 m) Wt 185 lb 13.6 oz (84.3 kg) SpO2 97% BMI 27.44 kg/m Pulse Ox: SpO2 Av.3 % Min: 91 % Max: 98 % Supplemental O2: General appearance: No apparent distress, appears stated age and cooperative with exam HEENT: Normal cephalic, atraumatic without obvious deformity. Pupils equal, round, and reactive to light. Extra ocular muscles intact. Conjunctivae/corneas clear. Neck: Supple, with full range of motion. No jugular venous distention. Trachea midline. No lymphadenopathy. Respiratory: Normal respiratory effort. Clear to auscultation, bilaterally without Rales/Wheezes/Rhonchi. Cardiovascular: Regular rate and rhythm with normal S1/S2 without murmurs, rubs or gallops. Abdomen: Soft, non-tender, non-distended with normal bowel sounds. No rebound or guarding. Musculoskeletal: Left BKA revision stump with drain and wrap; Area nonTTT; Right Charcot foot with ulcerations of the lower extremity Skin: Skin color, texture, turgor normal. No rashes or lesions. Neurologic: Neurovascularly intact without any focal sensory/motor deficits. Cranial nerves: II-XIIintact, grossly non-focal. Assessment 1. 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 DM I with hyperglycemia - Endocrinology consulted; A1C > 14 3. Hyponatremia 4. Metabolic Alkalosis - Resolved 5. Anemia 6. Urinary Retention - Resolved 7. LE Ulcers- Wound following 8. Right Charcot Arthropathy 9. HTN 10. Hepatitis C - viral load pending 11. GERD Diagnosis Date Colitis 03/14/2016 Depression Diabetes mellitus type 1 with manifestations, uncontrolled (HCC) Gastroparesis GERD (gastroesophageal reflux disease) GERD Hepatitis C In Past Hypertension Hyponatremia 03/14/2016 Neuropathy Osteoarthritis Type I (juvenile type) diabetes mellitus with neurological manifestations, uncontrolled(250.63) Plan - Pain control - Mobility; PT/OT - PICC and antibiotics tomorrow -am labs, replace lytes prn -increase activity -DVT prophylaxis: [x] Lovenox [] Heparin [] SCDs [x] Encourage ambulation [] Already on Anticoagulation Advance Directive: Full Code Discharge planning: Attempt home discharge tomorrow 07/09/2020 if able Shiv Jenkins MD Division of Hospitalist Medicine Inpatient Medical Services PAGER: [phone] * Derek Umana MD - 07/07/2020 7:29 PM EST [facility] Nephrology Progress Note Subjective/ 45 y.o. year old male who we are seeing in consultation for hyponatremia. Interval Hx: Doing better HgbA1c > 14 noted No issues with breathing. Pain at left stump site + naeon ROS negative except above Objective/ Vitals: 07/06/20 2232 07/07/20 0519 07/07/20 0724 07/07/20 1508 BP: (!) 147/90 (!) 141/90 131/79 Pulse: 95 84 88 Resp: 18 20 Temp: 97.7 F (36.5 C) 96.9 F (36.1 C) 97.9 F (36.6 C) TempSrc: Temporal Temporal Temporal SpO2: 99% 98% 91% Weight: 180 lb (81.6 kg) Height: 24HR INTAKE/OUTPUT: Intake/Output Summary (Last 24 hours) at 07/07/2020 1929 Last data filed at 07/07/2020 1636 Gross per 24 hour Intake Output 230 ml Net -230 ml General: NAD, Comfortable appearing, cooperative to history and physical exam. Head: AT NC Neck: Supple, no jvd Chest: B/L clear, no crackles, no accessory muscles usage. CV: RRR, no murmurs or rubs Abdomen: NT, ND, soft Extremities: LLE BKA, no edema. Neurological: Moving all four extremities, no focal neurological deficit Psychiatric: Normal insight and judgement, good recall Current Facility-Administered Medications Medication Dose Route Frequency Provider Last Rate Last Admin insulin glargine (LANTUS) injection vial 18 Units 18 Units Subcutaneous Nightly Taz Gallegos DO insulin lispro (HUMALOG) injection vial 0-6 Units 0-6 Units Subcutaneous TID Taz Gallegos DO 4 Units at 07/07/20 1729 insulin lispro (HUMALOG) injection vial 4 Units 4 Units Subcutaneous TID Mo Luis MD 4 Units at 07/07/20 1731 vancomycin (VANCOCIN) 2,000 mg in dextrose 5 % 500 mL IVPB 2,000 mg Intravenous Q12H Mo Luis MD 250 mL/hr at 07/07/20 1723 2,000 mg at 07/07/20 1723 0.9 % sodium chloride infusion Intravenous Continuous Mo Luis MD Stopped at 07/07/20 0721 enoxaparin (LOVENOX) injection 40 mg 40 mg Subcutaneous Daily Mo Luis MD 40 mg at 07/07/200809 influenza quadrivalent split vaccine (FLUZONE;FLUARIX;FLULAVAL;AFLURIA) injection 0.5 mL 0.5 mL Intramuscular Prior to discharge Phil Lee MD sodium chloride flush 0.9 % injection 10 mL 10 mL Intravenous 2 times per day Mo Luis MD 10 mL at 07/07/20 0806 sodium chloride flush 0.9 % injection 10 mL 10 mL Intravenous PRN Mo Luis MD ondansetron (ZOFRAN) injection 4 mg 4 mg Intravenous Q6H PRN Mo Luis MD 4 mg at 07/05/20 0803 polyethylene glycol (GLYCOLAX) packet 17 g 17 g Oral Daily PRN Mo Luis MD acetaminophen (TYLENOL) tablet 650 mg 650 mg Oral Q6H PRN Mo Luis MD 650 mg at 07/06/20 1048 Or acetaminophen (TYLENOL) suppository 650 mg 650 mg Rectal Q6H PRN Mo Luis MD glucose (GLUTOSE) 40 % oral gel 15 g 15 g Oral PRN Mo Luis MD dextrose 50 % IV solution 12.5 g Intravenous PRN Mo Luis MD glucagon (rDNA) injection 1 mg 1 mg Intramuscular PRN Mo Luis MD dextrose 5 % solution 100 mL/hr Intravenous PRN Mo Luis MD oxyCODONE (ROXICODONE) immediate release tablet 5 mg 5 mg Oral Q4H PRN Mo Luis MD oxyCODONE (ROXICODONE) immediate release tablet 10 mg 10 mg Oral Q4H PRN Mo Luis MD 10 mg at 07/07/20 1501 piperacillin-tazobactam (ZOSYN) 3.375 g in dextrose 50 mL IVPB extended infusion (premix) 3.375 g Intravenous Q8H Mo Luis MD Stopped at 07/07/20 1722 aspirin EC tablet 81 mg 81 mg Oral Daily Mo Luis MD DULoxetine (CYMBALTA) extended release capsule 120 mg 120 mg Oral Daily Mo Luis MD [Held by provider] cilostazol (PLETAL) tablet 100 mg 100 mg Oral BID Mo Luis MD gabapentin (NEURONTIN) capsule 300 mg 300 mg Oral TID Mo Luis MD 300 mg at 07/07/20 1457 lisinopril (PRINIVIL;ZESTRIL) tablet 10 mg 10 mg Oral Daily Mo Luis MD 10 mg at 07/07/20 0808 metoclopramide (REGLAN) tablet 5 mg 5 mg Oral TID Mo Luis MD 5 mg at 07/07/20 1733 pantoprazole (PROTONIX) tablet 40 mg 40 mg Oral QAM AC Mo Luis MD 40 mg at 07/07/20 0520 sennosides-docusate sodium (SENOKOT-S) 8.6-50 MG tablet 2 tablet 2 tablet Oral BID Mo Luis MD 2 tablet at 07/04/20 2037 tamsulosin (FLOMAX) capsule 0.4 mg 0.4 mg Oral Daily Mo Luis MD sodium chloride Stopped (07/07/20 0721) dextrose Data/ Recent Labs 07/05/20 0427 07/06/20 0348 07/07/20 0522 WBC 8.6 6.6 9.4 HGB 12.1* 10.3* 11.8* HCT 37.3* 32.1* 36.9* MCV 79.9* 80.3 80.3 PLT 216 189 237 Recent Labs 07/05/20 0427 07/06/20 0348 07/07/20 0522 NA 135 137 132* K 4.4 3.7 4.5 CL 103 108* 101 CO2 29 26 23 GLUCOSE 177* 145* 325* BUN 10 4* 11 CREATININE 0.52 0.44* 0.51* Assessment/ 1. Hyponatremia. 2. DM II with hyperglycemia. 3. Metabolic alkalosis. 4. Left stump cellulitis. 5. H/o urinary retention. Plan: Same Rx Hyponatremia likely from hyperglycemia. C/w NS Your management for DM. Alkalosis likely 2/2 volume depletion stemming from osmotic diuresis from Hyperglycemia. Improving,continue to trend Will follow [facility] * Taz Gallegos, DO - 07/07/2020 8:49 AM EST Department of Internal Medicine Division of Endocrinology, Diabetes, & Metabolism Endocrinology PROGRESS Note Patient Name: Tori Cantor : 1975 AGE: 45 y.o. Room/Bed: 247/2471 Admission Date: 07/04/2020 9:59 AM Consult Date: 07/05/20 Visit Date: 07/07/2020 Reason for Endocrine Consult: Uncontrolled DM 1 Provider/Team Requesting Consult: Victor Manuel AMOR PCP: Elizabeth Nelson DO Outpt Pedicab Driver: yes, ABIDA De León but hasn't seen in >1 yr. ASSESSMENT: T1DM uncontrolled w/ complications Hyperglycemia Polyneuropathy Retinopathy gastroparesis Body mass index is 26.58 kg/m . H/o pancreatitis Left Stump cellulitis H/o Left BKA PLAN: The inpt antihyperglycemic regimen will be as follows: lantus 18 qHS hlog 4/4/4 hlog low SS qAC Inpt GMF glucose goal 150. Inpt ICU glucose goal 150-180. Outpt goal A1C = 7%. Insulin is necessary for ongoing mgmt. FSBS to occur qAC/HS/PRN for s/s of hyper-/hypoglycemia. FSBS data will be used to determine the next steps in antihyperglycemic medication titration duringhospital stay. If hypoglycemia were to occur it should be treated per hospital protocol. Diet recommendation: carb controlled 60 gram limit no juice w/ trays Pedicab Driver On-Call: MELE Preferred Method of Communication/Reaching: [employer]. The above physician should be paged w/ questions/concerns about items being managed by Endocrinology Team. If there are any questions or concerns related to the info in this progress note please page the oncall insolvency consultant directly. On-Call information can be found in the [employer] Directory. We can also be reached by [employer] communication system. We appreciate the opportunity to participate in this pt's ongoing medical care. ANTICIPATED ENDOCRINE HOME GOING RECOMMENDATIONS: Optimized for Discharge from Endocrine standpoint: Yes Home Going Endocrine Rx Recommendations-- Pt to use current hosp insulin doses using home insulins. Outpt Follow Up-- 4-8 wks Appointment request sent to Endo office Staff: Yes SUBJECTIVE/HPI: CHIEF COMPLAINT: Cellulitis Type of DM: 1 Onset of DM: age 11 Home DM Medication Regimen: lantus 28 once daily Regular insulin on a sliding scale if his sugar is high. Typically doesn't take w/ meals since hereports he doesn't eat much. DM control (last A1c/glucose data): Lab Results Component Value Date LABA1C >14.0 (H) 07/05/2020 Lab Results Component Value Date EAG 355 07/05/2020 Voices concern about drainage of his surgical site drain. Otherwise feels well. Review of Systems All other systems reviewed and are negative. Inpt ROS: [] HAN [] diaphoresis [] tremor [] CP [] chest pressure [] palpitation [] SOB [] Abd pain [] Nausea [] Emesis [] Other: (Legend: [x] if present; [] if not present) OBJECTIVE: Vitals: 07/06/20 1600 07/06/20 2232 07/07/20 0519 07/07/20 0724 BP: 138/88 (!) 147/90 (!) 141/90 Pulse: 86 95 84 Resp: 16 20 Temp: 97.7 F (36.5 C) 96.9 F (36.1 C) TempSrc: Temporal Temporal SpO2: 96% 99% 98% Weight: 180 lb (81.6 kg) Height: Physical Exam Vitals signs reviewed. Constitutional: General: He is not in acute distress. Appearance: Normal appearance. He is well-developed. He is not ill-appearing, toxic-appearing or diaphoretic. HENT: Head: Normocephalic and atraumatic. Right Ear: External ear normal. Left Ear: External ear normal. Nose: Nose normal. Eyes: General: No scleral icterus. Right eye: No discharge. Left eye: No discharge. Conjunctiva/sclera: Conjunctivae normal. Pulmonary: Effort: Pulmonary effort is normal. No respiratory distress. Neurological: Mental Status: He is alert and oriented to person, place, and time. 24 hour intake/output: Intake/Output Summary (Last 24 hours) at 07/07/2020 0814 Last data filed at 07/07/2020 0239 Gross per 24 hour Intake 240 ml Output 700 ml Net -460 ml Diet: DIET CARB CONTROL; Carb Control: 4 carb choices (60 gms)/meal Medications (as per EMR): HomeMeds: Prior to Admission medications Medication Sig Start Date End Date Taking? Authorizing Provider gabapentin (NEURONTIN) 300 MG capsule Take 1 capsule by mouth 3 times daily for 180 days. Intended supply: 30 days 05/09/20 11/05/20 Yes Elizabeth Nelson, DO LANTUS SOLOSTAR 100 UNIT/ML injection pen Inject 30 Units into the skin nightly 05/09/20 Yes Elizabeth Nelson DO lisinopril (PRINIVIL;ZESTRIL) 10 MG tablet Take 1 pill daily 05/09/20 Yes Elizabeth Nelson DO pantoprazole (PROTONIX) 40 MG tablet Take 1 tablet by mouth every morning (before breakfast) 05/09/20 Yes Elizabeth Nelson DO insulin regular (HUMULIN R) 100 UNIT/ML injection Inject 12 Units into the skin See Admin Instructions Inject as sliding scale if 150-200= 2 units, 201-250 = 4 units, 251-300=6 units, 301-350=8 units, 351-400= 10 units, 401-450=12 units before meals and at bedtime Max dosage of 48 units daily 03/28/20 Yes Elizabeth Nelson, DO sennosides-docusate sodium (SENOKOT-S) 8.6-50 MG tablet Take 2 tablets by mouth 2 times daily 03/28/20 Elizabeth Nelson DO nystatin (MYCOSTATIN) 618655 UNIT/GM cream Apply topically 2 times daily. 03/28/20 Elizabeth Nelson, DO metoclopramide (REGLAN) 5 MG tablet Take 1 tablet by mouth 3 times daily 03/28/20 Elizabeth Nelson DO DULoxetine (CYMBALTA) 60 MG extended release capsule Take 2 capsules by mouth daily 03/28/20 Elizabeth Nelson DO diclofenac sodium (VOLTAREN) 1 % GEL Apply 4 g topically 4 times daily 03/28/20 Elizabeth Nelson, DO cilostazol (PLETAL) 100 MG tablet Take 1 tablet by mouth 2 times daily 03/28/20 Elizabeth Nelson, DO acetaminophen (TYLENOL) 325 MG tablet Take 2 tablets by mouth every 4 hours as needed for Pain 03/28/20 Elizabeth Nelson, DO polyethylene glycol (GLYCOLAX) 17 GM/SCOOP powder Take 17 g by mouth daily 03/28/20 Elizabeth Nelson DO aspirin 81 MG EC tablet Take 1 tablet by mouth daily 03/28/20 Elizabeth Nelson, DO Insulin Pen Needle (PEN NEEDLES 31GX5/16) 31G X 8 MM MISC 1 each by Does not apply route daily 11/24/19 12/24/19 Elizabeth Nelson DO Insulin Syringe-Needle U-100 ([employer] INSULIN SYRINGE) 31G X 5/16 0.3 ML MISC 1 each by Does not apply route daily 09/30/19 Elizabeth Nelson, DO blood glucose monitor strips type II Dm, E11.9, test once per day 09/30/19 Elizabeth Nelson, DO Lancets MISC 1 each by Does not apply route 4 times daily 09/30/19 Elizabeth Nelson DO aspirin 81 MG tablet Take 81 mg by mouth daily Historical Provider, MD [facility] INSULIN SYR 0.5ML/31G 31G X 5/16 0.5 ML MISC USE ONE SYRINGE 4 TIMES DAILY BEFORE MEALS ANDAT BEDTIME 07/06/18 Elizabeth Nelson DO Scheduled Meds: insulin glargine 18 Units Subcutaneous Nightly insulin lispro 4 Units Subcutaneous TID WC insulin lispro 0-6 Units Subcutaneous Q6H vancomycin 2,000 mg Intravenous Q12H enoxaparin 40 mg Subcutaneous Daily influenza virus vaccine 0.5 mL Intramuscular Prior to discharge sodium chloride flush 10 mL Intravenous 2 times per day piperacillin-tazobactam 3.375 g Intravenous Q8H aspirin 81 mg Oral Daily DULoxetine 120 mg Oral Daily [Held by provider] cilostazol 100 mg Oral BID gabapentin 300 mg Oral TID lisinopril 10 mg Oral Daily metoclopramide 5 mg Oral TID pantoprazole 40 mg Oral QAM AC sennosides-docusate sodium 2 tablet Oral BID tamsulosin 0.4 mg Oral Daily Continuous Infusions: sodium chloride Stopped (07/07/20 0721) dextrose PRN Meds:morphine OR morphine, sodium chloride flush, [DISCONTINUED] promethazine OR ondansetron, polyethylene glycol, acetaminophen OR acetaminophen, glucose, dextrose, glucagon (rDNA), dextrose, oxyCODONE, oxyCODONE Diagnostic Workup: I reviewed pertinent Laboratory results, Radiographic results, and Other Clinical Notes at the timeof today's encounter. BMP: Recent Labs 07/05/20 0427 07/06/20 0348 07/07/20 0522 NA 135 137 132* K 4.4 3.7 4.5 CL 103 108* 101 CO2 29 26 23 BUN 10 4* 11 CREATININE 0.52 0.44* 0.51* GLUCOSE 177* 145* 325* Glucose: Recent Labs 07/05/20 1639 07/05/20 1939 07/06/20 0741 07/06/20 1119 07/06/20 1503 07/06/20 1641 07/06/20 1959 07/07/20 0726 POCGLU 171* 141* 108* 121* 96 112* 317* 319* HgbA1C: Recent Labs 07/05/20426 LABA1C >14.0* Hepatic: Recent Labs 07/07/20 0522 ALKPHOS 77 ALT 10 AST 25 PROT 6.4 BILITOT 0.5 LABALBU 3.4* Lipids: No results for input(s): CHOL, TRIG, HDL, LDLCALC in the last 72 hours. Invalid input(s): LDL TSH: Lab Results Component Value Date TSH 1.190 11/17/2019 T4FREE 1.26 10/07/2016 Radiology reportsas per the Radiologist Radiology: Xr Tibia Fibula Left (2 Views) Result Date: 07/04/2020 Patient Name: TORI CANTOR Diagnostic Radiology ACCESSION EXAMDATE/TIME PROCEDURE ORDERING PROVIDER [id number] 07/04/2020 11:56 EST CR Tibia/Fibula 2 Views MD JORGE LUIS, MARIBELL [place] Left CPT code 56701 Reason For Exam (CR Tibia/Fibula 2 Views Left) Patient has below the knee application. Patient has likely cellulitis and abscess at his stump. Report Indication:Possible cellulitis. Findings and impression: Left leg tibia fibula performed two views. Below the knee amputation. No bony lytic process. No soft tissue gas. Some edema of the soft tissues present suspicious for cellulitis. Please correlate clinically. 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) Past Surgical History: Past Surgical History: Procedure Laterality Date AMPUTATION Left 06/2019 LBKA COLONOSCOPY 03/17/2016 DENTAL SURGERY UPPER GASTROINTESTINAL ENDOSCOPY 2014 UPPER GASTROINTESTINAL ENDOSCOPY 11/02/2017 Allergy(ies): No Known Allergies Family History: Family History Problem Relation Age of Onset Diabetes Mother Heart Disease Mother High Blood Pressure Mother Stroke Mother Diabetes Father Heart Disease Father High Blood Pressure Father Stroke Father Social History: Social History Tobacco Use Smoking status: Current Every Day Smoker Packs/day: 0.50 Years: 30.00 Pack years: 15.00 Types: Cigarettes Smokeless tobacco: Never Used Substance Use Topics Alcohol use: Not Currently Alcohol/week: 0.0 standard drinks Comment: Rare Drug use: Not Currently Frequency: 1.0 times per week Types: Marijuana Portions of the information within this encounter were entered using an electronic dictation system. Best attempts were made to edit/proofread the information prior to note completion. Despite the review of information, some errors may remain. If there are questions related to the information contained within the note please contact the signing physician directly. I spent 35 minutes with the pt which involved more than 51% of the time in coordination of care, medical evaluation, review of records, and/or counseling of the pt regarding his/her condition/diseasestate/prognosis on the date of this note. * Shiv Jenkins MD - 07/07/2020 8:39 AM EST Hospitalist Progress Note 07/07/2020 8:39 AM [phone]: Please page nv [phone] for patient care issues. [phone]: Please page [facility] night Hospitalist for any issues. Subjective: Admit Date: 07/04/2020 PCP: Elizabeth Nelson, DO Interval History: Doing well s/p revision of left BKA. Drain in place and with clots, but had good output overnight. Discussed pain control and recommendations to mobilize per orthopedic surgery. No overnight issues. Denies chest pain, sob, abdominal pain, nausea, vomiting, diarrhea, constipation, fevers, or chills. DIET CARB CONTROL; Carb Control: 4 carb choices (60 gms)/meal Patient Vitals for the past 96 hrs (Last 3 readings): Weight 07/07/20 0519 180 lb (81.6 kg) 07/05/20 0330 184 lb 9.6 oz (83.7 kg) 07/04/20 1445 185 lb 8 oz (84.1 kg) In: 240 [P.O.:240] Out: 150 [Drains:150] Medications: sodium chloride Stopped (07/07/20 0721) dextrose insulin glargine 16 Units Subcutaneous Nightly insulin lispro 4 Units Subcutaneous TID WC insulin lispro 0-6 Units Subcutaneous Q6H vancomycin 2,000 mg Intravenous Q12H enoxaparin 40 mg Subcutaneous Daily influenza virus vaccine 0.5 mL Intramuscular Prior to discharge sodium chloride flush 10 mL Intravenous 2 times per day piperacillin-tazobactam 3.375 g Intravenous Q8H aspirin 81 mg Oral Daily DULoxetine 120 mg Oral Daily [Held by provider] cilostazol 100 mg Oral BID gabapentin 300 mg Oral TID lisinopril 10 mg Oral Daily metoclopramide 5 mg Oral TID pantoprazole 40 mg Oral QAM AC sennosides-docusate sodium 2 tablet Oral BID tamsulosin 0.4 mg Oral Daily LABS: CBC: Recent Labs 07/05/2042607/06/2034707/07/20 0522 WBC 8.6 6.6 9.4 RBC 4.67 3.99* 4.60 HGB 12.1* 10.3* 11.8* HCT 37.3* 32.1* 36.9* MCV 79.9* 80.3 80.3 RDW 16.9* 17.2* 17.0* PLT 216 189 237 BMP: Recent Labs 07/05/2042607/06/208 07/07/20 0522 NA 135 137 132* K 4.4 3.7 4.5 CL 103 108* 101 CO2 29 26 23 BUN 10 4* 11 CREATININE 0.52 0.44* 0.51* GLUCOSE 177* 145* 325* CALCIUM 8.9 7.6* 8.8 ANIONGAP 3 3 8 LIVER PROFILE: Recent Labs 07/05/20 0427 07/06/20 0348 07/07/20 0522 AST 25 20 25 ALT 8 6 10 BILITOT 0.3 0.3 0.5 ALKPHOS 78 61 77 LABALBU 3.5 2.9* 3.4* PROT 6.2* 5.6* 6.4 PT/INR: Recent Labs 07/05/20426 PROTIME 10.0 INR 0.9 CARDIAC ENZYMES: No results for input(s): TROPONINI in the last 72 hours. Procalcitonin: Lab Results Component Value Date PROCAL <0.10 07/04/2020 Glucose: Recent Labs 07/06/20 0741 07/06/20 1119 07/06/20 1503 07/06/20 1641 07/06/20 1959 07/07/20 0726 POCGLU 108* 121* 96 112* 317* 319* Objective: Vitals: BP (!) 141/90 Pulse 84 Temp 96.9 F (36.1 C) (Temporal) Resp 20 Ht 5' 9 (1.753 m) Wt 180 lb (81.6 kg) SpO2 98% BMI 26.58 kg/m Pulse Ox: SpO2 Av.3 % Min: 96 % Max: 99 % Supplemental O2: General appearance: No apparent distress, appears stated age and cooperative with exam HEENT: Normal cephalic, atraumatic without obvious deformity. Pupils equal, round, and reactive to light. Extra ocular muscles intact. Conjunctivae/corneas clear. Neck: Supple, with full range of motion. No jugular venous distention. Trachea midline. No lymphadenopathy. Respiratory: Normal respiratory effort. Clear to auscultation, bilaterally without Rales/Wheezes/Rhonchi. Cardiovascular: Regular rate and rhythm with normal S1/S2 without murmurs, rubs or gallops. Abdomen: Soft, non-tender, non-distended with normal bowel sounds. No rebound or guarding. Musculoskeletal: Left BKA revision stump with drain and wrap; Area nonTTT; Right Charcot foot with ulcerations of the lower extremity Skin: Skin color, texture, turgor normal. No rashes or lesions. Neurologic: Neurovascularly intact without any focal sensory/motor deficits. Cranial nerves: II-XIIintact, grossly non-focal. Assessment 1. 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 DM I with hyperglycemia - Endocrinology consulted; A1C > 14 3. Hyponatremia 4. Metabolic Alkalosis - Resolved 5. Anemia 6. Urinary Retention - Resolved 7. LE Ulcers- Wound following 8. Right Charcot Arthropathy 9. HTN 10. Hepatitis C - viral load pending 11. 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 rate 20, height 5' 9 (1.753 m), weight 180 lb (81.6 kg), SpO2 98 %. No complaints. Concerned that drain isn't draining. PE: Dressing and drain intact. 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 Xray: n/a IMP: POD 1, Revision BKA left for abscess Osteo, right fibula PLAN: Continue drain and dressing Cultures pnd. PT/OT, mobilize. * Pepito Sevilla MD - 07/06/2020 5:32 PM EST [facility] Attending Consult Note Reason for F/U: Infected ulcer, abscess and osteomyelitis, left BKA stump History of Present Illness: F/U for Infected ulcer, abscess and osteomyelitis, left BKA stump. S/p I&D and revision amputation of Lt BKA stump, POD#0. He was admitted on 07/04/20 with the symptoms of infection; about a weekago, he developed a blood bubble at the stump that spontaneously opened up and drained, c/o pain, fever, chill since then, in hospital, he has been afebrile, Xray showed soft tissue edema, no bony erosion; pip/tazo and vancomycin were given. He was seen, found him alert, sitting on bed, c/o pain atthe stump, nausea, vomiting, and abdominal pain; he appeared agitated about his IV beeping, NAD. 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 , had IV antibiotics in the hospital. He has h/o uncontrolled DM and right charcot foot. He was examined, ROS and chart were reviewed, treatment plan was discussed. Past Medical History: Diagnosis Date Colitis 03/14/2016 Depression Diabetes mellitus type 1 with manifestations, uncontrolled (HCC) Gastroparesis GERD (gastroesophageal reflux disease) GERD Hepatitis C In Past Hypertension Hyponatremia 03/14/2016 Neuropathy Osteoarthritis Type I (juvenile type) diabetes mellitus with neurological manifestations, uncontrolled(250.63) Past Surgical History: Procedure Laterality Date AMPUTATION Left 06/2019 LBKA COLONOSCOPY 03/17/2016 DENTAL SURGERY UPPER GASTROINTESTINAL ENDOSCOPY 2014 UPPER GASTROINTESTINAL ENDOSCOPY 11/02/2017 Current Medications: Current Facility-Administered Medications: insulin glargine (LANTUS) injection vial 16 Units, 16 Units, Subcutaneous, Nightly insulin lispro (HUMALOG) injection vial 4 Units, 4 Units, Subcutaneous, TID WC insulin lispro (HUMALOG) injection vial 0-6 Units, 0-6 Units, Subcutaneous, Q6H meperidine (DEMEROL) injection 12.5 mg, 12.5 mg, Intravenous, Q5 Min PRN HYDROmorphone (DILAUDID) injection 0.25 mg, 0.25 mg, Intravenous, Q5 Min PRN HYDROmorphone (DILAUDID) injection 0.5 mg, 0.5 mg, Intravenous, Q5 Min PRN HYDROmorphone (DILAUDID) injection 0.25 mg, 0.25 mg, Intravenous, Q5 Min PRN HYDROmorphone (DILAUDID) injection 1 mg, 1 mg, Intravenous, Q5 Min PRN oxyCODONE (ROXICODONE) immediate release tablet 5 mg, 5 mg, Oral, PRN OR oxyCODONE (ROXICODONE)immediate release tablet 10 mg, 10 mg, Oral, PRN ondansetron (ZOFRAN) injection 4 mg, 4 mg, Intravenous, Once PRN promethazine (PHENERGAN) injection 6.25 mg, 6.25 mg, Intravenous, Once PRN diphenhydrAMINE (BENADRYL) injection 12.5 mg, 12.5 mg, Intravenous, Once PRN labetalol (NORMODYNE;TRANDATE) injection 5 mg, 5 mg, Intravenous, Q10 Min PRN hydrALAZINE (APRESOLINE) injection 5 mg, 5 mg, Intravenous, Q10 Min PRN vancomycin (VANCOCIN) 2,000 mg in dextrose 5 % 500 mL IVPB, 2,000 mg, Intravenous, Q12H 0.9 % sodium chloride infusion, , Intravenous, Continuous [START ON 07/07/2020] enoxaparin (LOVENOX) injection 40 mg, 40 mg, Subcutaneous, Daily sodium chloride flush 0.9 % injection 10 mL, 10 mL, Intravenous, 2 times per day sodium chloride flush 0.9 % injection 10 mL, 10 mL, Intravenous, PRN [DISCONTINUED] promethazine (PHENERGAN) tablet 12.5 mg, 12.5 mg, Oral, Q6H PRN OR ondansetron (ZOFRAN) injection 4 mg, 4 mg, Intravenous, Q6H PRN polyethylene glycol (GLYCOLAX) packet 17 g, 17 g, Oral, Daily PRN acetaminophen (TYLENOL) tablet 650 mg, 650 mg, Oral, Q6H PRN OR acetaminophen (TYLENOL) suppository 650 mg, 650 mg, Rectal, Q6H PRN glucose (GLUTOSE) 40 % oral gel 15 g, 15 g, Oral, PRN dextrose 50 % IV solution, 12.5 g, Intravenous, PRN glucagon (rDNA) injection 1 mg, 1 mg, Intramuscular, PRN dextrose 5 % solution, 100 mL/hr, Intravenous, PRN oxyCODONE (ROXICODONE) immediate release tablet 5 mg, 5 mg, Oral, Q4H PRN oxyCODONE (ROXICODONE) immediate release tablet 10 mg, 10 mg, Oral, Q4H PRN piperacillin-tazobactam (ZOSYN) 3.375 g in dextrose 50 mL IVPB extended infusion (premix), 3.375 g,Intravenous, Q8H aspirin EC tablet 81 mg, 81 mg, Oral, Daily DULoxetine (CYMBALTA) extended release capsule 120 mg, 120 mg, Oral, Daily [Held by provider] cilostazol (PLETAL) tablet 100 mg, 100 mg, Oral, BID gabapentin (NEURONTIN) capsule 300 mg, 300 mg, Oral, TID lisinopril (PRINIVIL;ZESTRIL) tablet 10 mg, 10 mg, Oral, Daily metoclopramide (REGLAN) tablet 5 mg, 5 mg, Oral, TID pantoprazole (PROTONIX) tablet 40 mg, 40 mg, Oral, QAM AC sennosides-docusate sodium (SENOKOT-S) 8.6-50 MG tablet 2 tablet, 2 tablet, Oral, BID tamsulosin (FLOMAX) capsule 0.4 mg, 0.4 mg, Oral, Daily Allergies: No Known Allergies Social History Socioeconomic History Marital status: Spouse name: None Number of children: None Years of education: None Highest education level: None Occupational History None Social Needs Financial resource strain: None Food insecurity Worry: None Inability: None Transportation needs Medical: None Non-medical: None Tobacco Use Smoking status: Current Every Day Smoker Packs/day: 0.50 Years: 30.00 Pack years: 15.00 Types: Cigarettes Smokeless tobacco: Never Used Substance and Sexual Activity Alcohol use: Not Currently Alcohol/week: 0.0 standard drinks Comment: Rare Drug use: Not Currently Frequency: 1.0 times per week Types: Marijuana Sexual activity: Not Currently Lifestyle Physical activity Days per week: None Minutes per session: None Stress: None Relationships Social connections Talks on phone: None Gets together: None Attends congregation service: None Active member of club or organization: None Attends meetings of clubs or organizations: None Relationship status: None Intimate partner violence Fear of current or ex partner: None Emotionally abused: None Physically abused: None Forced sexual activity: None Other Topics Concern None Social History Narrative None Family History Problem Relation Age of Onset Diabetes Mother Heart Disease Mother High Blood Pressure Mother Stroke Mother Diabetes Father Heart Disease Father High Blood Pressure Father Stroke Father Review of Systems: CONSTITUTIONAL: positive for fatigue EYES: negative HEENT: negative RESPIRATORY: negative CARDIOVASCULAR: negative GASTROINTESTINAL: Nausea, vomiting, abdominal pain GENITOURINARY: negative INTEGUMENT/BREAST: negative HEMATOLOGIC/LYMPHATIC: negative ALLERGIC/IMMUNOLOGIC: negative ENDOCRINE: negative MUSCULOSKELETAL: Left BKA stump ulcer with pain NEUROLOGICAL: Peripheral neuropathy BEHAVIOR/PSYCH: negative Physical Exam: Vitals: BP 138/88 Pulse 86 Temp 97.7 F (36.5 C) (Temporal) Resp 16 Ht 5' 9 (1.753 m) Wt 184 lb 9.6 oz (83.7 kg) SpO2 96% BMI 27.26 kg/m CONSTITUTIONAL: awake, alert, cooperative, no apparent distress, and appears stated age EYES: Lids and lashes normal, pupils equal, round and reactive to light, extra ocular muscles intact, sclera clear, conjunctiva normal ENT: Normocephalic, without obvious abnormality, atraumatic, sinuses nontender on palpation, external ears without lesions, oral pharynx with moist mucus membranes, tonsils without erythema or exudates, gums normal and good dentition. NECK: Supple, symmetrical, trachea midline, no adenopathy, thyroid symmetric, not enlarged and no tenderness, skin normal HEMATOLOGIC/LYMPHATICS: no cervical lymphadenopathy BACK: Symmetric, no curvature, spinous processes are non-tender on palpation, paraspinous muscles are non-tender on palpation, no costal vertebral tenderness LUNGS: No increased work of breathing, good air exchange, clear to auscultation bilaterally, no crackles or wheezing CARDIOVASCULAR: Normal apical impulse, regular rate and rhythm, normal S1 and S2, no S3 or S4, and no murmur noted ABDOMEN: No scars, normal bowel sounds, soft, non-distended, non-tender, no masses palpated, no hepatosplenomegally MUSCULOSKELETAL: He has right midfoot deformity; Lt knee with full range of motion, has a 1 cm wound on Lt BKA stump which appeared clean and not indurated, no drainage. There is no redness, warmth, or swelling of the joints. Full range of motion noted. Motor strength is 5 out of 5 all extremities bilaterally. Tone is normal. NEUROLOGIC: Awake, alert, oriented to name, place and time. Cranial nerves II- XII are grossly intact. Motor is 5 out of 5 bilaterally. Cerebellar finger to nose, heel to hsu intact. Sensory is intact. Babinski down going, Romberg negative, and gait is normal. SKIN: Warm, dry and no rashes Labs: CBC with Differential: Lab Results Component Value Date WBC 6.6 07/06/2020 WBC 10.4 11/07/2015 RBC 3.99 07/06/2020 HGB 10.3 07/06/2020 HCT 32.1 07/06/2020 PLT 189 07/06/2020 MCV 80.3 07/06/2020 MCH 25.7 07/06/2020 MCHC 32.0 07/06/2020 RDW 17.2 07/06/2020 SEGSPCT 65.9% 11/07/2015 LYMPHOPCT 28.1 07/06/2020 MONOPCT 7.8 07/06/2020 MONOPCT 8.2 11/17/2019 BASOPCT 1.4 07/06/2020 BASOPCT 1.1 11/17/2019 MONOSABS 0.5 07/06/2020 MONOSABS 0.50 11/17/2019 LYMPHSABS 1.8 07/06/2020 LYMPHSABS 2.30 11/17/2019 EOSABS 0.4 07/06/2020 EOSABS 0.20 11/17/2019 BASOSABS 0.1 07/06/2020 BASOSABS 0.10 11/17/2019 CMP: Lab Results Component Value Date NA 137 07/06/2020 K 3.7 07/06/2020 CL 108 07/06/2020 CO2 26 07/06/2020 BUN 4 07/06/2020 CREATININE 0.44 07/06/2020 GFRAA >60 11/17/2019 AGRATIO 1.0 11/02/2015 LABGLOM >60 11/17/2019 GLUCOSE 145 07/06/2020 GLUCOSE 176 11/17/2019 PROT 5.6 07/06/2020 LABALBU 2.9 07/06/2020 LABALBU 3.9 05/30/2014 CALCIUM 7.6 07/06/2020 BILITOT 0.3 07/06/2020 ALKPHOS 61 07/06/2020 AST 20 07/06/2020 ALT 6 07/06/2020 Blood Culture: No components found for: CBLOOD, [id number]/16 blood-neg Wound Culture: 07/04 Lt BKA stump ulcer-Staph aureus MRSA procal <0.10 A1c >14.0 Lines: PIV site ok Radiography/Echo/Other: Reviewed Xray Lt tib/fib: Findings and impression: Left leg tibia fibula performed two views. Below the knee amputation. No bony lytic process. No soft tissue gas. Some edema of the soft tissues present suspicious for cellulitis. Please correlate clinically. Antimicrobials, Start/End Dates: Vanco#2, pip/tazo#3 Impression: 1. Infected ulcer, abscess and osteomyelitis, left BKA stump tib-fib, s/p I&D, POD#0. Follow surgical cx. 2. H/o infection of Lt BKA stump requiring scraping of bone and antibiotic treatment. 3. Uncontrolled DM with neuropathy and possible gastroparesis. 4. PAD. 5. Tobacco abuse. Cessation discussed. Plan: Pt sick due to infected Lt BKA stump due to MRSA with osteomyelitis. Also, uncontrolled DM and PAD.S/p I&D, POD#0, await cx results. Continue present antbs till cxs are finalized. Predict 6 weeks of IV anti-MRSA antb. Cessation of tobacco emphasized, 5 minutes spent. Will follow. Pepito Sevilla MD * Sivan Simon RN - 07/06/2020 4:12 PM EST Report to julianna gutierrez To 2 east via bed * Remy Feldman [facility] - 07/06/2020 12:45 PM EST Pharmacy Vancomycin Consult Follow-Up Note Current Dosinmg q12h Recent Labs 07/05/20 0427 07/06/20 0348 BUN 10 4* Recent Labs 07/05/20 0427 07/06/20 0348 CREATININE 0.52 0.44* Recent Labs 07/05/20 0427 07/06/20 0348 WBC 8.6 6.6 Ht Readings from Last 1 Encounters: 07/05/20 5' 9 (1.753 m) Wt Readings from Last 1 Encounters: 07/05/20 184 lb 9.6 oz (83.7 kg) Body mass index is 27.26 kg/m . Estimated Creatinine Clearance: 210 mL/min (A) (based on SCr of 0.44 mg/dL (L)). Trough: 9.4 ug/ml Drawn 07/06 at 1147. Assessment/Plan: Will increase the dose to 2000mg q12h, and schedule a trough prior to the 4th dose, at 0000 on 07/08/2020. * Matthias Ndiaye MD - 07/06/2020 9:21 AM EST [facility] Progress Note Subjective/ 45 y.o. year old male who we are seeing in consultation for hyponatremia. Interval Hx: Doing better Blood sugars are better controlled Na improved at 137 today HgbA1c > 14 noted Going to OR today naeon ROS negative except above Objective/ Vitals: 07/05/20 1454 07/05/20 2319 07/06/20 0343 07/06/20 0820 BP: 127/84 137/85 134/86 (!) 159/95 Pulse: 86 77 82 82 Resp: Temp: 97.5 F (36.4 C) 97.9 F (36.6 C) 98.2 F (36.8 C) 97.2 F (36.2 C) TempSrc: Temporal Temporal Temporal Temporal SpO2: 97% 97% 96% 99% Weight: Height: 24HR INTAKE/OUTPUT: Intake/Output Summary (Last 24 hours) at 07/06/2020 0922 Last data filed at 07/05/2020 1434 Gross per 24 hour Intake Output 750 ml Net -750 ml General: NAD, Comfortable appearing, cooperative to history and physical exam. Head: AT NC Neck: Supple, no jvd Chest: B/L clear, no crackles, no accessory muscles usage. CV: RRR, no murmurs or rubs Abdomen: NT, ND, soft Extremities: LLE BKA, no edema. Neurological: Moving all four extremities, no focal neurological deficit Psychiatric: Normal insight and judgement, good recall Current Facility-Administered Medications Medication Dose Route Frequency Provider Last Rate Last Admin insulin glargine (LANTUS) injection vial 16 Units 16 Units Subcutaneous Nightly Taz Gallgeos, DO insulin lispro (HUMALOG) injection vial 4 Units 4 Units Subcutaneous TID WC Taz Gallegos, DO insulin lispro (HUMALOG) injection vial 0-6 Units 0-6 Units Subcutaneous Q6H Taz Gallegos, sodium chloride flush 0.9 % injection 10 mL 10 mL Intravenous 2 times per day DAYANARA Martinez CNP 10 mL at 07/05/202004 sodium chloride flush 0.9 % injection 10 mL 10 mL Intravenous PRN SHRUTHI Martinez CNP [Held by provider] enoxaparin (LOVENOX) injection 40 mg 40 mg Subcutaneous Daily SHRUTHI Martinez CNP 40 mg at 07/04/20 1742 ondansetron (ZOFRAN) injection 4 mg 4 mg Intravenous Q6H PRN SHRUTHI Martinez CNP 4 mg at 07/05/20 0803 polyethylene glycol (GLYCOLAX) packet 17 g 17 g Oral Daily PRN SHRUTHI Martinez CNP acetaminophen (TYLENOL) tablet 650 mg 650 mg Oral Q6H PRN SHRUTHI Martinez CNP Or acetaminophen (TYLENOL) suppository 650 mg 650 mg Rectal Q6H PRN SHRUTHI Martinez CNP 0.9 % sodium chloride infusion Intravenous Continuous SHRUTHI Martinez CNP 100 mL/hr at 07/06/20 0013 New Bag at 07/06/20 0013 glucose (GLUTOSE) 40 % oral gel 15 g 15 g Oral PRN SHRUTHI Martinez CNP dextrose 50 % IV solution 12.5 g Intravenous PRN SHRUTHI Martinez CNP glucagon (rDNA) injection 1 mg 1 mg Intramuscular PRN SHRUTHI Martinez CNP dextrose 5 % solution 100 mL/hr Intravenous PRN SHRUTHI Martinez CNP oxyCODONE (ROXICODONE) immediate release tablet 5 mg 5 mg Oral Q4H PRN SHRUTHI Martinez CNP oxyCODONE (ROXICODONE) immediate release tablet 10 mg 10 mg Oral Q4H PRN SHRUTHI Martinez CNP 10 mg at 07/06/20 0537 piperacillin-tazobactam (ZOSYN) 3.375 g in dextrose 50 mL IVPB extended infusion (premix) 3.375 g Intravenous Q8H SHRUTHI Martinez CNP Stopped at 07/06/20 0819 aspirin EC tablet 81 mg 81 mg Oral Daily SHRUTHI Martinez CNP DULoxetine (CYMBALTA) extended release capsule 120 mg 120 mg Oral Daily SHRUTHI Martinez CNP [Held by provider] cilostazol (PLETAL) tablet 100 mg 100 mg Oral BID SHRUTHI Martinez CNP gabapentin (NEURONTIN) capsule 300 mg 300 mg Oral TID SHRUTHI Martinez CNP 300 mg at 07/06/20 0744 lisinopril (PRINIVIL;ZESTRIL) tablet 10 mg 10 mg Oral Daily SHRUTHI Martinez CNP 10 mg at 07/06/20 0745 metoclopramide (REGLAN) tablet 5 mg 5 mg Oral TID SHRUTHI Martinez CNP 5 mg at 07/06/20 0744 pantoprazole (PROTONIX) tablet 40 mg 40 mg Oral QAM AC SHRUTHI Martinez CNP 40 mg at 07/06/20 0535 sennosides-docusate sodium (SENOKOT-S) 8.6-50 MG tablet 2 tablet 2 tablet Oral BID SHRUTHI Martinez CNP 2 tablet at 07/04/20 2037 vancomycin (VANCOCIN) 1500 mg in dextrose 5 % 250 mL IVPB 1,500 mg Intravenous Q12H SHRUTHI Martinez CNP Stopped at 07/06/20 0220 tamsulosin (FLOMAX) capsule 0.4 mg 0.4 mg Oral Daily SHRUTHI Martinez CNP sodium chloride 100 mL/hr at 07/06/20 0013 dextrose Data/ Recent Labs 07/04/20 1130 07/05/20 0427 07/06/20 0348 WBC 9.7 8.6 6.6 HGB 12.4* 12.1* 10.3* HCT 38.3* 37.3* 32.1* MCV 79.2* 79.9* 80.3 PLT 224 216 189 Recent Labs 07/04/20 1130 07/04/20 1412 07/05/20 0427 07/06/20 0348 NA 128* -- 135 137 K 4.7 -- 4.4 3.7 CL 90* -- 103 108* CO2 31* -- 29 26 GLUCOSE 611* 423 177* 145* BUN 21* -- 10 4* CREATININE 0.58 -- 0.52 0.44* Assessment/ 1. Hyponatremia. 2. DM II with hyperglycemia. 3. Metabolic alkalosis. 4. Left stump cellulitis. 5. H/o urinary retention. Plan: Same Rx Hyponatremia likely from hyperglycemia. Is now improved, trend C/w NS Your management for DM. Alkalosis likely 2/2 volume depletion stemming from osmotic diuresis from Hyperglycemia. Improving,continue to trend Will follow [facility] * Shiv Jenkins MD - 07/06/2020 9:05 AM EST Hospitalist Progress Note 07/06/2020 9:05 AM [phone]: Please page [place] [phone] for patient care issues. [phone]: Please page [facility] Hospitalist for any issues. Subjective: Admit Date: 07/04/2020 PCP: Elizabeth Nelson, Interval History: Seen after Orthopedic recommendations of further amputation of left stump. Pt agreeable and understands need for bone to come out. Discussed antibiotics and plan of care once infected bone is removed. No overnight issues. Denies chest pain, sob, abdominal pain, nausea, vomiting,diarrhea, constipation, fevers, or chills. Diet NPO Effective Now Patient Vitals for the past 96 hrs (Last 3 readings): Weight 07/05/20 0330 184 lb 9.6 oz (83.7 kg) 07/04/20 1445 185 lb 8 oz (84.1 kg) 07/04/20 1002 165 lb (74.8 kg) No intake/output data recorded. Medications: sodium chloride 100 mL/hr at 07/06/20 0013 dextrose insulin glargine 16 Units Subcutaneous Nightly insulin lispro 4 Units Subcutaneous TID WC insulin lispro 0-6 Units Subcutaneous Q6H sodium chloride flush 10 mL Intravenous 2 times per day [Held by provider] enoxaparin 40 mg Subcutaneous Daily piperacillin-tazobactam 3.375 g Intravenous Q8H aspirin 81 mg Oral Daily DULoxetine 120 mg Oral Daily [Held by provider] cilostazol 100 mg Oral BID gabapentin 300 mg Oral TID lisinopril 10 mg Oral Daily metoclopramide 5 mg Oral TID pantoprazole 40 mg Oral QAM AC sennosides-docusate sodium 2 tablet Oral BID vancomycin 1,500 mg Intravenous Q12H tamsulosin 0.4 mg Oral Daily LABS: CBC: Recent Labs 07/04/20 1130 07/05/20 0427 07/06/20 0348 WBC 9.7 8.6 6.6 RBC 4.83 4.67 3.99* HGB 12.4* 12.1* 10.3* HCT 38.3* 37.3* 32.1* MCV 79.2* 79.9* 80.3 RDW 16.6* 16.9* 17.2* PLT 224 216 189 BMP: Recent Labs 07/04/20 1130 07/04/20 1412 07/05/20 0427 07/06/20 0348 NA 128* -- 135 137 K 4.7 -- 4.4 3.7 CL 90* -- 103 108* CO2 31* -- 29 26 BUN 21* -- 10 4* CREATININE 0.58 -- 0.52 0.44* GLUCOSE 611* 423 177* 145* CALCIUM 9.3 -- 8.9 7.6* ANIONGAP 8 -- 3 3 LIVER PROFILE: Recent Labs 07/05/2042607/06/20347 AST 25 20 ALT 8 6 BILITOT 0.3 0.3 ALKPHOS 78 61 LABALBU 3.5 2.9* PROT 6.2* 5.6* PT/INR: Recent Labs 07/05/20426 PROTIME 10.0 INR 0.9 CARDIAC ENZYMES: No results for input(s): TROPONINI in the last 72 hours. Procalcitonin: Lab Results Component Value Date PROCAL <0.10 07/04/2020 Glucose: Recent Labs 07/04/20 2344 07/05/20 0737 07/05/20 1102 07/05/20 1639 07/05/20 1939 07/06/20 0741 POCGLU 171* 140* 99 171* 141* 108* Objective: Vitals: BP (!) 159/95 Pulse 82 Temp 97.2 F (36.2 C) (Temporal) Resp 18 Ht 5' 9 (1.753 m) Wt 184 lb 9.6 oz (83.7 kg) SpO2 99% BMI 27.26 kg/m Pulse Ox: SpO2 Av % Min: 96 % Max: 99 % Supplemental O2: General appearance: No apparent distress, appears stated age and cooperative with exam HEENT: Normal cephalic, atraumatic without obvious deformity. Pupils equal, round, and reactive to light. Extra ocular muscles intact. Conjunctivae/corneas clear. Neck: Supple, with full range of motion. No jugular venous distention. Trachea midline. No lymphadenopathy. Respiratory: Normal respiratory effort. Clear to auscultation, bilaterally without Rales/Wheezes/Rhonchi. Cardiovascular: Regular rate and rhythm with normal S1/S2 without murmurs, rubs or gallops. Abdomen: Soft, non-tender, non-distended with normal bowel sounds. No rebound or guarding. Musculoskeletal: Left BKA stump open with serosanguinous drainage and minimal cellulitis; Right Charcot foot with ulcerations of the lower extremity Skin: Skin color, texture, turgor normal. No rashes or lesions. Neurologic: Neurovascularly intact without any focal sensory/motor deficits. Cranial nerves: II-XIIintact, grossly non-focal. Assessment 1. Left BKA Stump Osteomyelitis - Blood cultures negative; Wound culture positive for MRSA; ID following; Continue Vanc/ Zosyn; Ortho to further amputate this afternoon 2. DM I with hyperglycemia - Endocrinology consulted; A1C > 14 3. Hyponatremia - Resolved 4. Metabolic Alkalosis - Resolved 5. Anemia 6. Urinary Retention - Resolved 7. LE Ulcers- Wound following 8. Right Charcot Arthropathy 9. HTN 10. Hepatitis C - viral load pending 11. 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 Patient referred to the Dietitian. * Taz Gallegos DO - 07/06/2020 8:14 AM EST Department of Internal Medicine Division of Endocrinology, Diabetes, & Metabolism Endocrinology PROGRESS Note Patient Name: Tori Cantor : 1975 AGE: 45 y.o. Room/Bed: 247/2471 Admission Date: 07/04/2020 9:59 AM Consult Date: 07/05/20 Visit Date: 07/06/2020 Reason for Endocrine Consult: Uncontrolled DM 1 Provider/Team Requesting Consult: Victor Manuel AMOR PCP: Elizabeth Nelson DO Outpt Pedicab Driver: yes, ABIDA De León but hasn't seen in >1 yr. ASSESSMENT: T1DM uncontrolled w/ complications Hyperglycemia Polyneuropathy Retinopathy gastroparesis Body mass index is 27.26 kg/m . H/o pancreatitis Left Stump cellulitis H/o Left BKA PLAN: The inpt antihyperglycemic regimen will be as follows: lantus 16 qHS hlog hlog low SS qAC While NPO pt will not get scheduled dose of hlog before meals because he is not eating meals. Will change hlog SS to q6hrs while NPO and make the scale less aggressive. Inpt GMF glucose goal 150. Inpt ICU glucose goal 150-180. Outpt goal A1C = 7%. Insulin is necessary for ongoing mgmt. FSBS to occur qAC/HS/PRN for s/s of hyper-/hypoglycemia. FSBS data will be used to determine the next steps in antihyperglycemic medication titration duringhospital stay. If hypoglycemia were to occur it should be treated per hospital protocol. Diet recommendation: carb controlled 60 gram limit no juice w/ trays Pedicab Driver On-Call: DELORES (daytime); MELE (5p-8am) Preferred Method of Communication/Reaching: [employer]. The above physician should be paged w/ questions/concerns about items being managed by Endocrinology Team. If there are any questions or concerns related to the info in this progress note please page the oncall insolvency consultant directly. On-Call information can be found in the [facility] Online Directory. We can also be reached by [employer] communication system. We appreciate the opportunity to participate in this pt's ongoing medical care. ANTICIPATED ENDOCRINE HOME GOING RECOMMENDATIONS: Optimized for Discharge from Endocrine standpoint: Yes Home Going Endocrine Rx Recommendations-- Pt to use current hosp insulin doses using home insulins. Outpt Follow Up-- 4-8 wks Appointment request sent to Endo office Staff: Yes SUBJECTIVE/HPI: CHIEF COMPLAINT: Cellulitis Type of DM: 1 Onset of DM: age 11 Home DM Medication Regimen: lantus 28 once daily Regular insulin on a sliding scale if his sugar is high. Typically doesn't take w/ meals since hereports he doesn't eat much. DM control (last A1c/glucose data): Lab Results Component Value Date LABA1C >14.0 (H) 07/05/2020 Lab Results Component Value Date EAG 355 07/05/2020 Slated for OR this afternoon for stump surgery. Feels well. Happy w/ sugar levels over past 24 hrs. NPO for OR later today. Wants to be on prandial insulin pens for DC. Review of Systems All other systems reviewed and are negative. Inpt ROS: [] HAN [] diaphoresis [] tremor [] CP [] chest pressure [] palpitation [] SOB [] Abd pain [] Nausea [] Emesis [] Other: (Legend: [x] if present; [] if not present) OBJECTIVE: Vitals: 07/05/20 1032 07/05/20 1454 07/05/20 2319 07/06/20 0343 BP: (!) 133/91 127/84 137/85 134/86 Pulse: 84 86 77 82 Resp: Temp: 97.9 F (36.6 C) 97.5 F (36.4 C) 97.9 F (36.6 C) 98.2 F (36.8 C) TempSrc: Temporal Temporal Temporal Temporal SpO2: 96% 97% 97% 96% Weight: Height: Physical Exam Vitals signs reviewed. Constitutional: General: He is not in acute distress. Appearance: Normal appearance. He is well-developed. He is not ill-appearing, toxic-appearing or diaphoretic. HENT: Head: Normocephalic and atraumatic. Right Ear: External ear normal. Left Ear: External ear normal. Nose: Nose normal. Eyes: General: No scleral icterus. Right eye: No discharge. Left eye: No discharge. Conjunctiva/sclera: Conjunctivae normal. Pulmonary: Effort: Pulmonary effort is normal. No respiratory distress. Neurological: Mental Status: He is alert and oriented to person, place, and time. Psychiatric: Mood and Affect: Mood normal. Behavior: Behavior normal. 24 hour intake/output: Intake/Output Summary (Last 24 hours) at 07/06/2020 0814 Last data filed at 07/05/2020 1434 Gross per 24 hour Intake Output 750 ml Net -750 ml Diet: Diet NPO Effective Now Medications (as per EMR): HomeMeds: Prior to Admission medications Medication Sig Start Date End Date Taking? Authorizing Provider gabapentin (NEURONTIN) 300 MG capsule Take 1 capsule by mouth 3 times daily for 180 days. Intended supply: 30 days 05/09/20 11/05/20 Yes Elizabeth Nelson, DO LANTUS SOLOSTAR 100 UNIT/ML injection pen Inject 30 Units into the skin nightly 05/09/20 Yes Elizabeth Nelson DO lisinopril (PRINIVIL;ZESTRIL) 10 MG tablet Take 1 pill daily 05/09/20 Yes Elizabeth Nelson DO pantoprazole (PROTONIX) 40 MG tablet Take 1 tablet by mouth every morning (before breakfast) 05/09/20 Yes Elizabeth M Nelson, DO insulin regular (HUMULIN R) 100 UNIT/ML injection Inject 12 Units into the skin See Admin Instructions Inject as sliding scale if 150-200= 2 units, 201-250 = 4 units, 251-300=6 units, 301-350=8 units, 351-400= 10 units, 401-450=12 units before meals and at bedtime Max dosage of 48 units daily 03/28/20 Yes Elizabeth Nelson, DO sennosides-docusate sodium (SENOKOT-S) 8.6-50 MG tablet Take 2 tablets by mouth 2 times daily 03/28/20 Elizabeth Nelson, DO nystatin (MYCOSTATIN) 746040 UNIT/GM cream Apply topically 2 times daily. 03/28/20 Elizabeth Nelson, DO metoclopramide (REGLAN) 5 MG tablet Take 1 tablet by mouth 3 times daily 03/28/20 Elizabeth Nelson,DO DULoxetine (CYMBALTA) 60 MG extended release capsule Take 2 capsules by mouth daily 03/28/20 Elizabeth Nelson, DO diclofenac sodium (VOLTAREN) 1 % GEL Apply 4 g topically 4 times daily 03/28/20 Elizabeth Nelson, DO cilostazol (PLETAL) 100 MG tablet Take 1 tablet by mouth 2 times daily 03/28/20 Elizabeth Nelson, DO acetaminophen (TYLENOL) 325 MG tablet Take 2 tablets by mouth every 4 hours as needed for Pain 03/28/20 Elizabeth Nelson, DO polyethylene glycol (GLYCOLAX) 17 GM/SCOOP powder Take 17 g by mouth daily 03/28/20 Elizabeth Nelson, DO aspirin 81 MG EC tablet Take 1 tablet by mouth daily 03/28/20 Elizabeth Nelson, DO Insulin Pen Needle (PEN NEEDLES 31GX5/16) 31G X 8 MM MISC 1 each by Does not apply route daily 11/24/19 12/24/19 Elizabeth Nelson, DO Insulin Syringe-Needle U-100 ([employer] INSULIN SYRINGE) 31G X 516 0.3 ML MISC 1 each by Does not apply route daily 09/30/19 Elizabeth Nelson, DO blood glucose monitor strips type II Dm, E11.9, test once per day 09/30/19 Elizabeth Nelson, DO Lancets MISC 1 each by Does not apply route 4 times daily 09/30/19 Elizabeth M Nelson, DO aspirin 81 MG tablet Take 81 mg by mouth daily Historical Provider, MD [employer] INSULIN SYR 0.5ML/31G 31G X /16 0.5 ML MISC USE ONE SYRINGE 4 TIMES DAILY BEFORE MEALS ANDAT BEDTIME 07/06/18 Elizabeth Nelson DO Scheduled Meds: insulin glargine 16 Units Subcutaneous Nightly insulin lispro 4 Units Subcutaneous TID WC insulin lispro 0-6 Units Subcutaneous Q6H sodium chloride flush 10 mL Intravenous 2 times per day [Held by provider] enoxaparin 40 mg Subcutaneous Daily piperacillin-tazobactam 3.375 g Intravenous Q8H aspirin 81 mg Oral Daily DULoxetine 120 mg Oral Daily [Held by provider] cilostazol 100 mg Oral BID gabapentin 300 mg Oral TID lisinopril 10 mg Oral Daily metoclopramide 5 mg Oral TID pantoprazole 40 mg Oral QAM AC sennosides-docusate sodium 2 tablet Oral BID vancomycin 1,500 mg Intravenous Q12H tamsulosin 0.4 mg Oral Daily Continuous Infusions: sodium chloride 100 mL/hr at 07/06/20 0013 dextrose PRN Meds:sodium chloride flush, [DISCONTINUED] promethazine OR ondansetron, polyethylene glycol, acetaminophen OR acetaminophen, glucose, dextrose, glucagon (rDNA), dextrose, oxyCODONE, oxyCODONE Diagnostic Workup: I reviewed pertinent Laboratory results, Radiographic results, and Other Clinical Notes at the timeof today's encounter. BMP: Recent Labs 07/04/20 1130 07/04/20 1412 07/05/20 0427 07/06/20 0348 NA 128* -- 135 137 K 4.7 -- 4.4 3.7 CL 90* -- 103 108* CO2 31* -- 29 26 BUN 21* -- 10 4* CREATININE 0.58 -- 0.52 0.44* GLUCOSE 611* 423 177* 145* Glucose: Recent Labs 07/04/20 1626 07/04/20200907/04/20 2344 07/05/20 0737 07/05/20 1102 07/05/20 1639 07/05/20 1939 07/06/20 0741 POCGLU 281* 90 171* 140* 99 171* 141* 108* HgbA1C: Recent Labs 07/05/20 0427 LABA1C >14.0* Hepatic: Recent Labs 07/06/20 0348 ALKPHOS 61 ALT 6 AST 20 PROT 5.6* BILITOT 0.3 LABALBU 2.9* Lipids: No results for input(s): CHOL, TRIG, HDL, LDLCALC in the last 72 hours. Invalid input(s): LDL TSH: Lab Results Component Value Date TSH 1.190 11/17/2019 T4FREE 1.26 10/07/2016 Radiology reportsas per the Radiologist Radiology: Xr Tibia Fibula Left (2 Views) Result Date: 07/04/2020 Patient Name: TORI CANTOR Diagnostic Radiology ACCESSION EXAMDATE/TIME PROCEDURE ORDERING PROVIDER [id number] 07/04/2020 11:56 EST CR Tibia/Fibula 2 Views MD JORGE LUIS, MARIBELL [place] Left CPT code 94246 Reason For Exam (CR Tibia/Fibula 2 Views Left) Patient has below the knee application. Patient has likely cellulitis and abscess at his stump. Report Indication:Possible cellulitis. Findings and impression: Left leg tibia fibula performed two views. Below the knee amputation. No bony lytic process. No soft tissue gas. Some edema of the soft tissues present suspicious for cellulitis. Please correlate clinically. 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) Past Surgical History: Past Surgical History: Procedure Laterality Date AMPUTATION Left 06/2019 LBKA COLONOSCOPY 03/17/2016 DENTAL SURGERY UPPER GASTROINTESTINAL ENDOSCOPY 2014 UPPER GASTROINTESTINAL ENDOSCOPY 11/02/2017 Allergy(ies): No Known Allergies Family History: Family History Problem Relation Age of Onset Diabetes Mother Heart Disease Mother High Blood Pressure Mother Stroke Mother Diabetes Father Heart Disease Father High Blood Pressure Father Stroke Father Social History: Social History Tobacco Use Smoking status: Current Every Day Smoker Packs/day: 0.50 Years: 30.00 Pack years: 15.00 Types: Cigarettes Smokeless tobacco: Never Used Substance Use Topics Alcohol use: Not Currently Alcohol/week: 0.0 standard drinks Comment: Rare Drug use: Not Currently Frequency: 1.0 times per week Types: Marijuana Portions of the information within this encounter were entered using an electronic dictation system. Best attempts were made to edit/proofread the information prior to note completion. Despite the review of information, some errors may remain. If there are questions related to the information contained within the note please contact the signing physician directly. I spent 35 minutes with the pt which involved more than 51% of the time in coordination of care, medical evaluation, review of records, and/or counseling of the pt regarding his/her condition/diseasestate/prognosis on the date of this note. * Mo Luis MD - 07/06/2020 7:53 AM EST H: Recent Labs 07/06/20 0348 HGB 10.3* WBC 6.6 VS: Blood pressure 134/86, pulse 82, temperature 98.2 F (36.8 C), temperature source Temporal, resp. rate 18, height 5' 9 (1.753 m), weight 184 lb 9.6 oz (83.7 kg), SpO2 96 %. Sleeping. No new complaints. PE: L BKA dressing intact. Xray: MRI -- confirms wound, early abscess at fibular tip with early surface osteo tib and fib. IMP: L BKA infection w/ early abscess and osteo. PLAN: Wound culture growing Staph aureus. Discussed deep infection into bone w/ patient. Risks including, ongoing infection, pain and DVT discussed w/ pt and consented. He is aware that hewill lose some additional length on the BK stump. He currently is basically non-ambulatory. A shorter stump will make prosthetic wear and ambulation even more difficult. He understands and agrees. Scheduled for this afternoon. Sodium normalized. * Matthias Ndiaye MD - 07/05/2020 10:04 AM EST [facility] Progress Note Subjective/ 45 y.o. year old male who we are seeing in consultation for hyponatremia. Interval Hx: Doing better Blood sugars are better controlled Na improved at 135 today HgbA1c > 14 noted naeon ROS negative except above Objective/ Vitals: 07/04/20 2234 07/05/20 0330 07/05/20 0730 07/05/20 0745 BP: 132/84 137/88 Pulse: 88 69 Resp: 18 18 Temp: 97.5 F (36.4 C) 97.9 F (36.6 C) TempSrc: Temporal Temporal SpO2: 95% 98% Weight: 184 lb 9.6 oz (83.7 kg) Height: 5' 9 (1.753 m) 24HR INTAKE/OUTPUT: Intake/Output Summary (Last 24 hours) at 07/05/2020 1005 Last data filed at 07/05/2020 0412 Gross per 24 hour Intake 2200 ml Output 1584 ml Net 616 ml General: NAD, Comfortable appearing, cooperative to history and physical exam. Head: AT NC Neck: Supple, no jvd Chest: B/L clear, no crackles, no accessory muscles usage. CV: RRR, no murmurs or rubs Abdomen: NT, ND, soft Extremities: LLE BKA, no edema. Neurological: Moving all four extremities, no focal neurological deficit Psychiatric: Normal insight and judgement, good recall Current Facility-Administered Medications Medication Dose Route Frequency Provider Last Rate Last Admin insulin lispro (HUMALOG) injection vial 5 Units 5 Units Subcutaneous TID Taz Gallegos DO 5 Units at 07/05/20 0842 insulin lispro (HUMALOG) injection vial 0-6 Units 0-6 Units Subcutaneous TID Taz Gallegos DO insulin glargine (LANTUS) injection vial 20 Units 20 Units Subcutaneous Nightly Taz Gallegos DO sodium chloride flush 0.9 % injection 10 mL 10 mL Intravenous 2 times per day Elizabeth Rush APRN- RETAINING ROOM CUTTER 10 mL at 07/05/20 0826 sodium chloride flush 0.9 % injection 10 mL 10 mL Intravenous PRN SHRUTHI Martinez CNP enoxaparin (LOVENOX) injection 40 mg 40 mg Subcutaneous Daily SHRUTHI Martinez CNP 40 mg at 07/04/20 1742 ondansetron (ZOFRAN) injection 4 mg 4 mg Intravenous Q6H PRN SHRUTHI Martinez CNP 4 mg at 07/05/20 0803 polyethylene glycol (GLYCOLAX) packet 17 g 17 g Oral Daily PRN SHRUTHI Martinez CNP acetaminophen (TYLENOL) tablet 650 mg 650 mg Oral Q6H PRN SHRUTHI Martinez CNP Or acetaminophen (TYLENOL) suppository 650 mg 650 mg Rectal Q6H PRN SHRUTHI Martinez CNP 0.9 % sodium chloride infusion Intravenous Continuous SHRUTHI Martinez CNP 100 mL/hr at 07/04/20 1703 New Bag at 07/04/20 1703 glucose (GLUTOSE) 40 % oral gel 15 g 15 g Oral PRN SHRUTHI Martinez CNP dextrose 50 % IV solution 12.5 g Intravenous PRN SHRUTHI Martinez CNP glucagon (rDNA) injection 1 mg 1 mg Intramuscular PRN SHRUTHI Martinez CNP dextrose 5 % solution 100 mL/hr Intravenous PRN SHRUTHI Martinez CNP oxyCODONE (ROXICODONE) immediate release tablet 5 mg 5 mg Oral Q4H PRN SHRUTHI Martinez CNP oxyCODONE (ROXICODONE) immediate release tablet 10 mg 10 mg Oral Q4H PRN SHRUTHI Martinez CNP 10 mg at 07/05/20 0436 piperacillin-tazobactam (ZOSYN) 3.375 g in dextrose 50 mL IVPB extended infusion (premix) 3.375 g Intravenous Q8H SHRUTHI Martinez CNP Stopped at 07/05/20 0826 aspirin EC tablet 81 mg 81 mg Oral Daily SHRUTHI Martinez CNP DULoxetine (CYMBALTA) extended release capsule 120 mg 120 mg Oral Daily SHRUTHI Martinez CNP [Held by provider] cilostazol (PLETAL) tablet 100 mg 100 mg Oral BID SHRUTHI Martinez CNP gabapentin (NEURONTIN) capsule 300 mg 300 mg Oral TID SHRUTHI Martinez CNP 300 mg at 07/05/20 0824 lisinopril (PRINIVIL;ZESTRIL) tablet 10 mg 10 mg Oral Daily SHRUTHI Martinez CNP 10 mg at 07/05/20 0824 metoclopramide (REGLAN) tablet 5 mg 5 mg Oral TID SHRUTHI Martinez CNP 5 mg at 07/05/20 0825 pantoprazole (PROTONIX) tablet 40 mg 40 mg Oral QAM AC SHRUTHI Martinez CNP 40 mg at 07/05/20 0440 sennosides-docusate sodium (SENOKOT-S) 8.6-50 MG tablet 2 tablet 2 tablet Oral BID SHRUTHI Martinez CNP 2 tablet at 07/04/207 vancomycin (VANCOCIN) 1500 mg in dextrose 5 % 250 mL IVPB 1,500 mg Intravenous Q12H SHRUTHI Martinez CNP Stopped at 07/05/20 0246 tamsulosin (FLOMAX) capsule 0.4 mg 0.4 mg Oral Daily SHRUTHI Martinez CNP sodium chloride 100 mL/hr at 07/04/20 1703 dextrose Data/ Recent Labs 07/04/20 1130 07/05/20 0427 WBC 9.7 8.6 HGB 12.4* 12.1* HCT 38.3* 37.3* MCV 79.2* 79.9* PLT 224 216 Recent Labs 07/04/20 1130 07/04/20 1412 07/05/20 0427 NA 128* -- 135 K 4.7 -- 4.4 CL 90* -- 103 CO2 31* -- 29 GLUCOSE 611* 423 177* BUN 21* -- 10 CREATININE 0.58 -- 0.52 Assessment/ 1. Hyponatremia. 2. DM II with hyperglycemia. 3. Metabolic alkalosis. 4. Left stump cellulitis. 5. H/o urinary retention. Plan: Hyponatremia likely from hyperglycemia. Is now improved, trend C/w NS Your management for DM. Alkalosis likely 2/2 volume depletion stemming from osmotic diuresis from Hyperglycemia. Improving,continue to trend Will follow [facility] * Elizabeth Rush APRN - RETAINING ROOM CUTTER - 07/05/2020 9:08 AM EST Hospitalist Progress Note 07/05/2020 9:08 AM Subjective: Admit Date: 07/04/2020 PCP: Elizabeth Nelson DO Room#: 959/8586 Interval History: Had some nausea/vomiting this AM- improved now. Feeling a little better. C/o LLE pain. Denies chest pain, sob, abdominal pain, diarrhea, constipation, fevers, or chills. DIET CARB CONTROL; Carb Control: 4 carb choices (60 gms)/meal Patient Vitals for the past 96 hrs (Last 3 readings): Weight 07/05/20 0330 184 lb 9.6 oz (83.7 kg) 07/04/20 1445 185 lb 8 oz (84.1 kg) 07/04/20 1002 165 lb (74.8 kg) Medications: sodium chloride 100 mL/hr at 07/04/20 1703 dextrose insulin lispro 5 Units Subcutaneous TID WC insulin lispro 0-6 Units Subcutaneous TID WC insulin glargine 20 Units Subcutaneous Nightly sodium chloride flush 10 mL Intravenous 2 times per day enoxaparin 40 mg Subcutaneous Daily piperacillin-tazobactam 3.375 g Intravenous Q8H aspirin 81 mg Oral Daily DULoxetine 120 mg Oral Daily [Held by provider] cilostazol 100 mg Oral BID gabapentin 300 mg Oral TID lisinopril 10 mg Oral Daily metoclopramide 5 mg Oral TID pantoprazole 40 mg Oral QAM AC sennosides-docusate sodium 2 tablet Oral BID vancomycin 1,500 mg Intravenous Q12H tamsulosin 0.4 mg Oral Daily LABS: CBC: Recent Labs 07/04/20 1130 07/05/20 0427 WBC 9.7 8.6 RBC 4.83 4.67 HGB 12.4* 12.1* HCT 38.3* 37.3* MCV 79.2* 79.9* RDW 16.6* 16.9* PLT 224 216 BMP: Recent Labs 07/04/20 1130 07/04/20 1412 07/05/20 0427 NA 128* -- 135 K 4.7 -- 4.4 CL 90* -- 103 CO2 31* -- 29 BUN 21* -- 10 CREATININE 0.58 -- 0.52 GLUCOSE 611* 423 177* CALCIUM 9.3 -- 8.9 ANIONGAP 8 -- 3 LIVER PROFILE: Recent Labs 07/05/20426 AST 25 ALT 8 BILITOT 0.3 ALKPHOS 78 LABALBU 3.5 PROT 6.2* PT/INR: Recent Labs 07/05/20426 PROTIME 10.0 INR 0.9 Procalcitonin: Lab Results Component Value Date PROCAL <0.10 07/04/2020 Objective: Vitals: BP 137/88 Pulse 69 Temp 97.9 F (36.6 C) (Temporal) Resp 18 Ht 5' 9 (1.753 m) Wt 184 lb 9.6 oz (83.7 kg) SpO2 98% BMI 27.26 kg/m Pulse Ox: SpO2 Av.7 % Min: 95 % Max: 99 % Supplemental O2: General appearance: No apparent distress HEENT: Normal cephalic, atraumatic without obvious deformity Neck: Supple, with full range of motion. No jugular venous distention Respiratory: Normal respiratory effort. Clear to auscultation Cardiovascular: Regular rate and rhythm with normal S1/S2 Abdomen: Soft, non-tender, non-distended with normal bowel sounds Musculoskeletal: Right foot charcot deformity; left BKA-wrapped Skin: various ulcerations on legs Neurologic: Neurovascularly intact without any focal sensory/motor deficits. Psychiatric: Alert and oriented, thought content appropriate, normal insight. Assessment/Plan 1. Left stump cellulitis, abscess: plan for MRI per Ortho. S/p culture in ED- prelim (GPC in clusters). Blood cultures pending. Continue PipTazo/Vanco for now. ID to see. De-escalate as indicated. 2. Uncontrolled DM I w/severe hyperglyemia, PVD, neuropathy, gastroparesis. Continue Insulin. Hypoglycemia protocol in place. Endocrinology consulted to assist w/glycemic control. Pt does not check his blood sugars routinely. Continue Gabapentin/Metocloperamide. Hgb A1c >14% 3. Hyponatremia, likely d/t severe hyperglycemia, Improved. continue IVF. ?some component of ADH stim d/t intermittent urinary retention. Monitor trends 4. Urinary retention, voiding ok currently, but has had some issues in the past. Voiding ok. Continue Flomax for now. Needs urology eval at some point 5. LE vascular, diabetic ulcerations: wound care consulted 6. Right charcot arthropathy, f/u Podiatry 7. HTN: BP stable. Continue Lisinopril 8. HCV +Ab: check viral load 9. GERD, on PPI -am labs, replace lytes prn -increase activity -DVT prophylaxis: [x] Lovenox [] Heparin [] SCDs [x] Encourage ambulation [] Already on Anticoagulation Advance Directive: Full Code Discharge planning: TBD Division of Hospitalist Medicine Inpatient Medical Services documented in this encounter Chief Complaint and Reason for Visit Chief Complaint LEFT LEG STUMP INFEC TION LEG INFECTION LEFT LEG STUMP INFECTION LEFT LEG STUMP INFECTION LEFT LEG STUMP INFECTION LEFT LEG STUMP INFECTION LEFT LEG STUMP INFECTION LEFT LEG STUMP INFECTION LEFT LEG STUMP INFECTION ABNL LABS Reason for Visit Leg wound, left Wound infection Cellulitis DM type 1 (diabetes mellitus, type 1) Hypertension Type 1 diabetes, uncontrolled, with neuropathy MRSA (methicillin resistant staph aureus) culture positive Chief Complaint LEFT LEG STUMP INFEC TION LEG INFECTION LEFT LEG STUMP INFECTION LEFT LEG STUMP INFECTION LEFT LEG STUMP INFECTION LEFT LEG STUMP INFECTION LEFT LEG STUMP INFECTION LEFT LEG STUMP INFECTION LEFT LEG STUMP INFECTION ABNL LABS ABD PAIN, CP Reason for Visit Leg wound, left Wound infection Cellulitis DM type 1 (diabetes mellitus, type 1) Hypertension Type 1 diabetes, uncontrolled, with neuropathy MRSA (methicillin resistant staph aureus) culture positive Chief Complaint Consult E ORDER Reason for Visit Constipation Gastroparesis GERD (gastroesophageal reflux disease) Chronic hepatitis C Chief Complaint Consult E ORDER E ORDER Reason for Visit Constipation Gastroparesis GERD (gastroesophageal reflux disease) Chronic hepatitis C Chief Complaint 4 MO FU E-ORDER Reason for Visit Hepatitis C Chief Complaint 4 MO FU E-ORDER Diabetes wound wound wound Reason for Visit Hepatitis C Hypothyroidism Polyneuropathy due to type 1 diabetes mellitus Wound discharge DM type 1 (diabetes mellitus, type 1) Hypertension 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 Tobacco use disorder DM type 1 (diabetes mellitus, type 1) Ulcer of left lower extremity with fat layer exposed Chief Complaint 4 MO FU E-ORDER Diabetes wound wound wound wound wound Reason for Visit Hepatitis C Hypothyroidism Polyneuropathy due to type 1 diabetes mellitus Wound discharge DM type 1 (diabetes mellitus, type 1) Hypertension 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 Tobacco use disorder DM type 1 (diabetes mellitus, type 1) Ulcer of left lower extremity with fat layer exposed 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 Tobacco use disorder DM type 1 (diabetes mellitus, type 1) Ulcer of left lower extremity with fat layer exposed Chief Complaint Admit Date 1 Wk FU August 18, 2024 9 :09am 4 M FU, RS 11/16December 07, 2024 2:59p m Reason for Visit Admit Date Counseling for insulin pump July 9:09am Chief Complaint Admit Date 4 M FU, RS 11/16December 07, 2024 2:59p m DKA January 06, 2025 4:37 pm Reason for Visit Admit Date Hypertension December 07, 2024 2:59p m Insulin pump titration December 07, 2024 2: 59pm Presence of insulin pump December 07, 2024 2:59pm Type 1 diabetes, uncontrolled, with neur opathy December 07, 2024 2:59pm Acute renal failure January 06, 2025 4:37 pm Altered mental status January 06, 2025 4: 37pm Dehydration January 06, 2025 4:37 pm DKA (diabetic ketoacidoses) January 06, 025 4:37pm Leukocytosis January 06, 2025 4:37 pm Transaminitis January 06, 2025 4:37 pm Additional Source Comments (unrecognized sect ion and content) No Status Records FoundNo Status Records FoundNo Status Records FoundNo Status Records FoundNo Status Records FoundNo Status Records FoundNo Status Records FoundNo Status Records Found INFORMATION SOURCE (unrecogn ized section and content) DATE CREATED AUTHOR 12/09/2018 [facility] DATE CREATED AUTHOR AUTHOR'S ORGANIZ ATION 09/01/2019 [facility] DATE CREATED AUTHOR AUTHOR'S ORGANIZ ATION 10/20/2019 [facility] DATE CREATED AUTHOR AUTHOR'S ORGANIZ ATION 12/04/2019 [facility] ([place] DATE CREATED AUTHOR AUTHOR'S ORGANIZ ATION 02/10/2020 [facility] DATE CREATED AUTHOR AUTHOR'S ORGANIZ ATION 07/24/2020 [facility] DATE CREATED AUTHOR AUTHOR'S ORGANIZ ATION 12/15/2024 [facility] DATE CREATED AUTHOR AUTHOR'S ORGANIZ ATION 01/02/2025 [facility] Reason for Visit (unrecogniz ed section and content) Reason Comments Flank Pain Reason Comments Suicidal Brought in from [facility] erik [facility]ira MGT, denies plan. He states he said I may as well to a socail worker this a.m. He is currently very frustrated and overwhelmed with his situation. He arrives voluntary denies ETOH or drug use. Status Reason Specialty Diagnoses / Procedures Referred By Contact Referred To Contact Pending Review Radiology Diagnoses Epigastric mass Procedures CT ABDOMEN W CONTRAST Elizabeth Nelson, DO [address] [place] [address] Reason Comments Cellulitis Reason Comments Constipation Reason Onset Date Comments [facility] Navigation Outreach 10/21/2021 Navigator [employer] care gap Reason Comments Establish Care Reason Comments Medication Follow-up Reason Onset Date Comments [facility] Navigation Outreach 12/30/2021 [facility] Care Gap Reason Onset Date Comments Refill Request 12/27/2021 Reason Comments Recheck Reason Onset Date Comments [facility] Navigation Outreach 02/06/2022 [facility] Attribution Reason Comments New Patient Foot Deformity Specialty Diagnoses / Procedures Referred By Silvia lino Referred To Contact Podiatry Diagnoses Charcot's joint of right foot Procedures CONSULT TO PODIATRY OFFICE/OUTPATIENT NEW HIGH MDM 60-74 MINUTES Jah Mas MD [address] [place] [address] Referral ID Status Reason Start Date Expiration Date Visits Requested Visits Authorized [id number] Pending Review PCP Requested Referral 02/05/2022 02/05/2023 1 1 Reason Onset Date Comments Population Health Navigation Outreach 05/02/2022 [facility] Attribution Reason Comments Follow Up Reason Comments Refill Request Reason Comments F/U 3 Month Reason Comments Results Reason Comments F/U 1 month Reason Onset Date Comments Refill Request 10/01/2022 Please see Rx no escobar Reason Onset Date Comments Refill Request 10/03/2022 Reason Onset Date Comments Medication Update 10/07/2022 Statin Use Rev iew Reason Onset Date Comments Population Health Navigation Outreach 10/29/2022 [facility] care gap Reason Comments 4 month follow up Would like something to help with smoking cessation Reason Onset Date Comments Population Health Navigation Outreach 03/27/2023 Navigator [facility] care gap outreach Reason Comments F/U 3 Month B/p Reason Onset Date Comments Population Health Navigation Outreach 06/04/2023 [facility] care gap Reason Onset Date Comments Refill Request 06/09/2023 Reason Onset Date Comments Medication Update 06/29/2023 Statin use rev iew Reason Comments Letter Reason Onset Date Comments Refill Request 09/18/2023 Reason Comments Yearly Exam Request for Handicap placard Reason Onset Date Comments Forms/letter 12/25/2023 Reason Comments DME form from [facility] for boost supplemen t Reason Onset Date Comments Population Health Navigation Outreach 02/11/2024 [facility] AWV/HCC and care gaps Reason Onset Date Comments Appointment 02/16/2024 Reason Comments Health Risk Assessment Reason Onset Date Comments Refill Request 03/23/2024 Reason Comments Medication Question Reason Onset Date Comments Allied Health Visit 04/12/2024 Medication A dherence Outreach Reason Comments Med Change Request Reason Onset Date Comments Allied Health Visit 04/28/2024 Medication A dherence Outreach Reason Onset Date Comments Allied Health Visit 05/16/2024 Medication A dherence Outreach Reason Onset Date Comments Population Health Navigation Outreach 05/18/2024 Jareth Mello PCSA Reason Comments Dose Clarification amlodipine Reason Onset Date Comments Refill Request 07/01/2024 Medication Question 07/01/2024 Reason Comments Medicare Wellness Exam 6 months Reason Comments Recheck Screening for lung c ancer Reason Comments New Patient Numbness, tingling, frequent falls- c/o feeling like he has blinders on, head feels numb, pt has hx of neuropathy Specialty Diagnoses / Procedures Referred By Silvia lino Referred To Contact Neurology Diagnoses Numbness and tingling Memory deficit Frequent falls Procedures CONSULT TO NEUROLOGY OFFICE/OUTPATIENT NEW HIGH MDM 60 MINUTES Margarita Licona M, 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 [address] [place] [address] Referral ID Status Reason Start Date Expiration Date V isits Requested Visits Authorized [id number] Closed PCP Requested Referral 08/10/2024 08/10/2025 1 1 Reason Comments Consult Colonoscopy Specialty Diagnoses / Procedures Referred By Silvia lino Referred To Contact General Surgery Diagnoses Screen for colon cancer Procedures CONSULT TO GENERAL SURGERY OFFICE/OUTPATIENT [facility] MDM 60 MINUTES Margarita Licona, 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 [address] [place] [address] Phone: tel: fax: Referral ID Status Reason Start Date Expiration Date V isits Requested Visits Authorized [id number] Closed PCP Requested Referral 08/23/2024 08/23/2025 [address] Specialty Diagnoses / Procedures Referred By Silvia t Referred To Contact CT IMAGING Diagnoses Encounter for screening for lung cancer Tobacco use current Procedures CT LUNG SCREEN WO IVCON COMPUTED TOMOGRAPHY THORAX LW DOSE LNG CA SCR [place]- Jacques Nettles, 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 [address] [place] [address] Phone: tel: fax: [place] [phone] Referral ID Status Reason Start Date Expiration Date V isits Requested Visits Authorized [id number] Closed Auto-Generate d Referral 08/22/2024 07/19/2025 1 1 Reason Comments Orders Colonoscopy - [facility] Med garry Ordered Prescriptions (unrec ognized section and content) Prescription Sig Dispensed Refills Start Date End Da te tamsulosin (FLOMAX) 0.4 MG capsule Take 1 capsule by mouth daily 30 capsule 3 07/10/2020 insulin lispro (HUMALOG) 100 UNIT/ML injection vial Inject 8 Units into the skin Daily with supper 1 vial 3 07/09/2020 insulin lispro (HUMALOG) 100 UNIT/ML injection vial Inject 8 Units into the skin daily (before lunch) 1 vial 3 07/09/2020 insulin lispro (HUMALOG) 100 UNIT/ML injection vial Inject 6 Units into the skin every morning (before breakfast) 1 vial 3 07/10/2020 insulin glargine (LANTUS) 100 UNIT/ML injection vial Inject 22 Units into the skin nightly 1 vial 3 07/09/2020 oxyCODONE (ROXICODONE) 5 MG immediate release tabletIndications:Cellul itis of left lower extremity Take 1 tablet by mouth every 6 hours as needed for Pain for up to 5 days. 20 tablet 0 07/09/2020 07/14/2020 Goals (unrecognized section and content) Goals may be documented in a n alternate sectionGoals may be documented in an alternate sectionGoals may be documented in an alternate sectionGoals may be documented in an alternate sectionGoals may be documented in an alternate sectionGoals may be documented in an alternate sectionGoals may be documented in an alternate sectionGoals may be documented in an alternate sectionGoals may be documented in an alternate sectionGoals may be documented in an alternate section Source Comments (unrecognize d section and content) In the event this informatio n is protected by the Federal Confidentiality of Alcohol and Drug Abuse Patient Records regulations: The Federal rules restrict any use of the information to criminally investigate or prosecute any alcohol or drug abuse patient.[facility] the event this information is protected by the Federal Confidentiality of Alcohol and Drug Abuse Patient Records regulations: The Federal rules restrict any use of the information to criminally investigate or prosecute any alcohol or drug abuse patient.[facility] HospitalIn the event this information is protected by the Federal Confidentiality of Alcohol and Drug Abuse Patient Records regulations: The Federal rules restrict any use of the information to criminally investigate or prosecute any alcohol or drug abuse patient.[facility] HospitalIn the event this information is protected by the Federal Confidentiality of Alcohol and Drug Abuse Patient Records regulations: The Federal rules restrict any use of the information to criminally investigate or prosecute any alcohol or drug abuse patient.[facility] the event this information is protected by the Federal Confidentiality of Alcohol and Drug Abuse Patient Records regulations: The Federal rules restrict any use of the information to criminally investigate or prosecute any alcohol or drug abuse patient.[facility] HospitalIn the event this information is protected by the Federal Confidentiality of Alcohol and Drug Abuse Patient Records regulations: The Federal rules restrict any use of the information to criminally investigate or prosecute any alcohol or drug abuse patient.[facility] HospitalIn the event this information is protected by the Federal Confidentiality of Alcohol and Drug Abuse Patient Records regulations: The Federal rules restrict any use of the information to criminally investigate or prosecute any alcohol or drug abuse patient.[facility] the event this information is protected by the Federal Confidentiality of Alcohol and Drug Abuse Patient Records regulations: The Federal rules restrict any use of the information to criminally investigate or prosecute any alcohol or drug abuse patient.[facility] HospitalIn the event this information is protected by the Federal Confidentiality of Alcohol and Drug Abuse Patient Records regulations: The Federal rules restrict any use of the information to criminally investigate or prosecute any alcohol or drug abuse patient.[facility] HospitalIn the event this information is protected by the Federal Confidentiality of Alcohol and Drug Abuse Patient Records regulations: The Federal rules restrict any use of the information to criminally investigate or prosecute any alcohol or drug abuse patient.[facility] HospitalIn the event this information is protected by the Federal Confidentiality of Alcohol and Drug Abuse Patient Records regulations: The Federal rules restrict any use of the information to criminally investigate or prosecute any alcohol or drug abuse patient.[facility] HospitalIn the event this information is protected by the Federal Confidentiality of Alcohol and Drug Abuse Patient Records regulations: The Federal rules restrict any use of the information to criminally investigate or prosecute any alcohol or drug abuse patient.[facility] HospitalIn the event this information is protected by the Federal Confidentiality of Alcohol and Drug Abuse Patient Records regulations: The Federal rules restrict any use of the information to criminally investigate or prosecute any alcohol or drug abuse patient.[facility] HospitalIn the event this information is protected by the Federal Confidentiality of Alcohol and Drug Abuse Patient Records regulations: The Federal rules restrict any use of the information to criminally investigate or prosecute any alcohol or drug abuse patient.[facility] HospitalIn the event this information is protected by the Federal Confidentiality of Alcohol and Drug Abuse Patient Records regulations: The Federal rules restrict any use of the information to criminally investigate or prosecute any alcohol or drug abuse patient.[facility] HospitalIn the event this information is protected by the Federal Confidentiality of Alcohol and Drug Abuse Patient Records regulations: The Federal rules restrict any use of the information to criminally investigate or prosecute any alcohol or drug abuse patient.[facility] HospitalIn the event this information is protected by the Federal Confidentiality of Alcohol and Drug Abuse Patient Records regulations: The Federal rules restrict any use of the information to criminally investigate or prosecute any alcohol or drug abuse patient.[facility] HospitalIn the event this information is protected by the Federal Confidentiality of Alcohol and Drug Abuse Patient Records regulations: The Federal rules restrict any use of the information to criminally investigate or prosecute any alcohol or drug abuse patient.[facility] HospitalIn the event this information is protected by the Federal Confidentiality of Alcohol and Drug Abuse Patient Records regulations: The Federal rules restrict any use of the information to criminally investigate or prosecute any alcohol or drug abuse patient.[facility] HospitalIn the event this information is protected by the Federal Confidentiality of Alcohol and Drug Abuse Patient Records regulations: The Federal rules restrict any use of the information to criminally investigate or prosecute any alcohol or drug abuse patient.[facility] HospitalIn the event this information is protected by the Federal Confidentiality of Alcohol and Drug Abuse Patient Records regulations: The Federal rules restrict any use of the information to criminally investigate or prosecute any alcohol or drug abuse patient.[facility] HospitalIn the event this information is protected by the Federal Confidentiality of Alcohol and Drug Abuse Patient Records regulations: The Federal rules restrict any use of the information to criminally investigate or prosecute any alcohol or drug abuse patient.[facility] HospitalIn the event this information is protected by the Federal Confidentiality of Alcohol and Drug Abuse Patient Records regulations: The Federal rules restrict any use of the information to criminally investigate or prosecute any alcohol or drug abuse patient.[facility] HospitalIn the event this information is protected by the Federal Confidentiality of Alcohol and Drug Abuse Patient Records regulations: The Federal rules restrict any use of the information to criminally investigate or prosecute any alcohol or drug abuse patient.[facility] HospitalIn the event this information is protected by the Federal Confidentiality of Alcohol and Drug Abuse Patient Records regulations: The Federal rules restrict any use of the information to criminally investigate or prosecute any alcohol or drug abuse patient.[facility] HospitalIn the event this information is protected by the Federal Confidentiality of Alcohol and Drug Abuse Patient Records regulations: The Federal rules restrict any use of the information to criminally investigate or prosecute any alcohol or drug abuse patient.[facility] HospitalIn the event this information is protected by the Federal Confidentiality of Alcohol and Drug Abuse Patient Records regulations: The Federal rules restrict any use of the information to criminally investigate or prosecute any alcohol or drug abuse patient.[facility] HospitalIn the event this information is protected by the Federal Confidentiality of Alcohol and Drug Abuse Patient Records regulations: The Federal rules restrict any use of the information to criminally investigate or prosecute any alcohol or drug abuse patient.[facility] HospitalIn the event this information is protected by the Federal Confidentiality of Alcohol and Drug Abuse Patient Records regulations: The Federal rules restrict any use of the information to criminally investigate or prosecute any alcohol or drug abuse patient.[facility] HospitalIn the event this information is protected by the Federal Confidentiality of Alcohol and Drug Abuse Patient Records regulations: The Federal rules restrict any use of the information to criminally investigate or prosecute any alcohol or drug abuse patient.[facility] HospitalIn the event this information is protected by the Federal Confidentiality of Alcohol and Drug Abuse Patient Records regulations: The Federal rules restrict any use of the information to criminally investigate or prosecute any alcohol or drug abuse patient.[facility] HospitalIn the event this information is protected by the Federal Confidentiality of Alcohol and Drug Abuse Patient Records regulations: The Federal rules restrict any use of the information to criminally investigate or prosecute any alcohol or drug abuse patient.[facility] HospitalIn the event this information is protected by the Federal Confidentiality of Alcohol and Drug Abuse Patient Records regulations: The Federal rules restrict any use of the information to criminally investigate or prosecute any alcohol or drug abuse patient.[facility] HospitalIn the event this information is protected by the Federal Confidentiality of Alcohol and Drug Abuse Patient Records regulations: The Federal rules restrict any use of the information to criminally investigate or prosecute any alcohol or drug abuse patient.[facility] HospitalIn the event this information is protected by the Federal Confidentiality of Alcohol and Drug Abuse Patient Records regulations: The Federal rules restrict any use of the information to criminally investigate or prosecute any alcohol or drug abuse patient.[facility] HospitalIn the event this information is protected by the Federal Confidentiality of Alcohol and Drug Abuse Patient Records regulations: The Federal rules restrict any use of the information to criminally investigate or prosecute any alcohol or drug abuse patient.[facility] HospitalIn the event this information is protected by the Federal Confidentiality of Alcohol and Drug Abuse Patient Records regulations: The Federal rules restrict any use of the information to criminally investigate or prosecute any alcohol or drug abuse patient.[facility] HospitalIn the event this information is protected by the Federal Confidentiality of Alcohol and Drug Abuse Patient Records regulations: The Federal rules restrict any use of the information to criminally investigate or prosecute any alcohol or drug abuse patient.[facility] HospitalIn the event this information is protected by the Federal Confidentiality of Alcohol and Drug Abuse Patient Records regulations: The Federal rules restrict any use of the information to criminally investigate or prosecute any alcohol or drug abuse patient.[facility] HospitalIn the event this information is protected by the Federal Confidentiality of Alcohol and Drug Abuse Patient Records regulations: The Federal rules restrict any use of the information to criminally investigate or prosecute any alcohol or drug abuse patient.[facility] HospitalIn the event this information is protected by the Federal Confidentiality of Alcohol and Drug Abuse Patient Records regulations: The Federal rules restrict any use of the information to criminally investigate or prosecute any alcohol or drug abuse patient.[facility] HospitalIn the event this information is protected by the Federal Confidentiality of Alcohol and Drug Abuse Patient Records regulations: The Federal rules restrict any use of the information to criminally investigate or prosecute any alcohol or drug abuse patient.[facility] HospitalIn the event this information is protected by the Federal Confidentiality of Alcohol and Drug Abuse Patient Records regulations: The Federal rules restrict any use of the information to criminally investigate or prosecute any alcohol or drug abuse patient.[facility] HospitalIn the event this information is protected by the Federal Confidentiality of Alcohol and Drug Abuse Patient Records regulations: The Federal rules restrict any use of the information to criminally investigate or prosecute any alcohol or drug abuse patient.[facility] HospitalIn the event this information is protected by the Federal Confidentiality of Alcohol and Drug Abuse Patient Records regulations: The Federal rules restrict any use of the information to criminally investigate or prosecute any alcohol or drug abuse patient.[facility] HospitalIn the event this information is protected by the Federal Confidentiality of Alcohol and Drug Abuse Patient Records regulations: The Federal rules restrict any use of the information to criminally investigate or prosecute any alcohol or drug abuse patient.[facility] HospitalIn the event this information is protected by the Federal Confidentiality of Alcohol and Drug Abuse Patient Records regulations: The Federal rules restrict any use of the information to criminally investigate or prosecute any alcohol or drug abuse patient.[facility] HospitalIn the event this information is protected by the Federal Confidentiality of Alcohol and Drug Abuse Patient Records regulations: The Federal rules restrict any use of the information to criminally investigate or prosecute any alcohol or drug abuse patient.[facility] HospitalIn the event this information is protected by the Federal Confidentiality of Alcohol and Drug Abuse Patient Records regulations: The Federal rules restrict any use of the information to criminally investigate or prosecute any alcohol or drug abuse patient.[facility] HospitalIn the event this information is protected by the Federal Confidentiality of Alcohol and Drug Abuse Patient Records regulations: The Federal rules restrict any use of the information to criminally investigate or prosecute any alcohol or drug abuse patient.[facility] HospitalIn the event this information is protected by the Federal Confidentiality of Alcohol and Drug Abuse Patient Records regulations: The Federal rules restrict any use of the information to criminally investigate or prosecute any alcohol or drug abuse patient.[facility] HospitalIn the event this information is protected by the Federal Confidentiality of Alcohol and Drug Abuse Patient Records regulations: The Federal rules restrict any use of the information to criminally investigate or prosecute any alcohol or drug abuse patient.[facility] HospitalIn the event this information is protected by the Federal Confidentiality of Alcohol and Drug Abuse Patient Records regulations: The Federal rules restrict any use of the information to criminally investigate or prosecute any alcohol or drug abuse patient.[facility] HospitalIn the event this information is protected by the Federal Confidentiality of Alcohol and Drug Abuse Patient Records regulations: The Federal rules restrict any use of the information to criminally investigate or prosecute any alcohol or drug abuse patient.[facility] the event this information is protected by the Federal Confidentiality of Alcohol and Drug Abuse Patient Records regulations: The Federal rules restrict any use of the information to criminally investigate or prosecute any alcohol or drug abuse patient.[facility] HospitalIn the event this information is protected by the Federal Confidentiality of Alcohol and Drug Abuse Patient Records regulations: The Federal rules restrict any use of the information to criminally investigate or prosecute any alcohol or drug abuse patient.[facility] HospitalIn the event this information is protected by the Federal Confidentiality of Alcohol and Drug Abuse Patient Records regulations: The Federal rules restrict any use of the information to criminally investigate or prosecute any alcohol or drug abuse patient.[facility] the event this information is protected by the Federal Confidentiality of Alcohol and Drug Abuse Patient Records regulations: The Federal rules restrict any use of the information to criminally investigate or prosecute any alcohol or drug abuse patient.[facility] HospitalIn the event this information is protected by the Federal Confidentiality of Alcohol and Drug Abuse Patient Records regulations: The Federal rules restrict any use of the information to criminally investigate or prosecute any alcohol or drug abuse patient.[facility] Care Teams (unrecognized sec tion and content) Tubing Machine Tender Relationship Specialty Start Date End Date Margarita Parisi APRN.RETAINING ROOM CUTTER [address] [place] [address] PCP - General Internal Medicine 10/21/21 Maria Elena Parekh APRN.RETAINING ROOM CUTTER [address] [place] [address] Referring Nurse Practitioner 12/02/18 Maria Elena Parekh APRN.RETAINING ROOM CUTTER [address] [place] [address] Referring Nurse Practitioner 12/06/18 Tubing Machine Tender Relationship Specialty Start Date End Date Maria Elena Parekh APRN.RETAINING ROOM CUTTER [address] [place] [address] Referring Nurse Practitioner 12/02/18 Maria Elena Parekh APRN.RETAINING ROOM CUTTER [address] [place] [address] Referring Nurse Practitioner 12/06/18 Tubing Machine Tender Relationship Specialty Start Date End Date Jah Mas MD [address] [place] [address] PCP - endocrinology Internal Medicine 11/06/21 Jah Mas MD [address] [place] [address] PCP - General Internal Medicine 11/06/21 Maria Elena Parekh, 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 [address] [place] [address] Referring Nurse Practitioner 12/02/18 Maria Elena Parekh, 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 [address] [place] [address] Referring Nurse Practitioner 12/06/18 Tubing Machine Tender Relationship Specialty Start Date End Date Jah Mas MD [address] [place] [address] PCP - endocrinology Internal Medicine 11/06/21 Jah Mas MD [address] [place] [address] PCP - General Internal Medicine 11/06/21 Maria Elena Parekh, 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 [address] [place] [address] Referring Nurse Practitioner 12/02/18 Maria Elena Parekh, 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 [address] [place] [address] Referring Nurse Practitioner 12/06/18 Tubing Machine Tender Relationship Specialty Start Date End Date Jah Mas MD [address] [place] [address] PCP - endocrinology Internal Medicine 11/06/21 Jah Mas MD [address] [place] [address] PCP - General Internal Medicine 11/06/21 Maria Elena Parekh APRN.RETAINING ROOM CUTTER [address] [place] [address] Referring Nurse Practitioner 12/02/18 Maria Elena Parekh APRN.RETAINING ROOM CUTTER [address] [place] [address] Referring Nurse Practitioner 12/06/18 Tubing Machine Tender Relationship Specialty Start Date End Date Jah Mas MD [address] [place] [address] PCP - endocrinology Internal Medicine 11/06/21 Jah Mas MD [facility] [place] [address] PCP - General Internal Medicine 11/06/21 Maria Elena Parekh APRN.RETAINING ROOM CUTTER [address] [place] [address] Referring Nurse Practitioner 12/02/18 Maria Elena Parekh APRN.RETAINING ROOM CUTTER [address] [place] [address] Referring Nurse Practitioner 12/06/18 Tubing Machine Tender Relationship Specialty Start Date End Date Jah Mas MD [address] [place] [address] PCP - endocrinology Internal Medicine 11/06/21 Jah Mas MD [address] [place] [address] PCP - General Internal Medicine 11/06/21 Maria Elena Parekh APRN.RETAINING ROOM CUTTER [address] [place] [address] Referring Nurse Practitioner 12/02/18 Maria Elena Parekh 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 [address] [place] [address] Referring Nurse Practitioner 12/06/18 Tubing Machine Tender Relationship Specialty Start Date End Date Jah Mas MD [address] [place] [address] PCP - endocrinology Internal Medicine 11/06/21 Jah Mas MD [address] [place] [address] PCP - General Internal Medicine 11/06/21 Maria Elena Parekh APRN.RETAINING ROOM CUTTER [address] [place] [address] Referring Nurse Practitioner 12/02/18 Maria Elena Parekh APRN.RETAINING ROOM CUTTER [address] [place] [address] Referring Nurse Practitioner 12/06/18 Tubing Machine Tender Relationship Specialty Start Date End Date Jah Mas MD [address] [place] [address] PCP - endocrinology Internal Medicine 11/06/21 Jah Mas MD [address] [place] [address] PCP - General Internal Medicine 11/06/21 Maria Elena Parekh 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 [address] [place] [address] Referring Nurse Practitioner 12/02/18 Maria Elena Parekh APRN.RETAINING ROOM CUTTER [address] [place] [address] Referring Nurse Practitioner 12/06/18 Tubing Machine Tender Relationship Specialty Start Date End Date Jah Mas MD [address] [place] [address] PCP - endocrinology Internal Medicine 11/06/21 Jah Mas MD [address] [place] [address] PCP - General Internal Medicine 11/06/21 Maria Elena Parekh APRN.RETAINING ROOM CUTTER [address] [place] [address] Referring Nurse Practitioner 12/02/18 Maria Elena Parekh 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 [address] [place] [address] Referring Nurse Practitioner 12/06/18 Tubing Machine Tender Relationship Specialty Start Date End Date Jah Mas MD [address] [place] [address] PCP - endocrinology Internal Medicine 11/06/21 Jah Mas MD [address] [place] [address] PCP - General Internal Medicine 11/06/21 Maria Elena Parekh APRN.RETAINING ROOM CUTTER [address] [place] [address] Referring Nurse Practitioner 12/02/18 Maria Elena Parekh APRN.RETAINING ROOM CUTTER [address] [place] [address] Referring Nurse Practitioner 12/06/18 Tubing Machine Tender Relationship Specialty Start Date End Date Jah Mas MD [address] [place] [address] PCP - endocrinology Internal Medicine 11/06/21 Jah Mas MD [address] [place] [address] PCP - General Internal Medicine 11/06/21 Maria Elena Parekh APRN.RETAINING ROOM CUTTER [address] [place] [address] Referring Nurse Practitioner 12/02/18 Maria Elena Parekh APRN.RETAINING ROOM CUTTER [address] [place] [address] Referring Nurse Practitioner 12/06/18 Tubing Machine Tender Relationship Specialty Start Date End Date Jah Mas MD [address] [place] [address] PCP - endocrinology Internal Medicine 11/06/21 Jah Mas MD [facility] [place] [address] PCP - General Internal Medicine 11/06/21 Maria Elena Parekh APRN.RETAINING ROOM CUTTER [address] [place] [address] Referring Nurse Practitioner 12/02/18 Maria Elena Parekh APRN.RETAINING ROOM CUTTER [address] [place] [address] Referring Nurse Practitioner 12/06/18 Tubing Machine Tender Relationship Specialty Start Date End Date Jah Mas MD [address] [place] [address] PCP - endocrinology Internal Medicine 11/06/21 Jah Mas MD [facility] [place] [address] PCP - General Internal Medicine 11/06/21 Maria Elena Parekh APRN.RETAINING ROOM CUTTER [address] [place] [address] Referring Nurse Practitioner 12/02/18 Maria Elena Parekh APRN.RETAINING ROOM CUTTER [address] [place] [address] Referring Nurse Practitioner 12/06/18 Tubing Machine Tender Relationship Specialty Start Date End Date Jah Mas MD [address] [place] [address] PCP - endocrinology Internal Medicine 11/06/21 Jah Mas MD [address] [place] [address] PCP - General Internal Medicine 11/06/21 Maria Elena Parekh, 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 [address] [place] [address] Referring Nurse Practitioner 12/02/18 Maria Elena Parekh 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 [address] [place] [address] Referring Nurse Practitioner 12/06/18 Tubing Machine Tender Relationship Specialty Start Date End Date Jah Mas MD [address] [place] [address] PCP - endocrinology Internal Medicine 11/06/21 Jah Mas MD [address] [place] [address] PCP - General Internal Medicine 11/06/21 Maria Elena Parekh, 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 [address] [place] [address] Referring Nurse Practitioner 12/02/18 Maria Elena Parekh, 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 [address] [place] [address] Referring Nurse Practitioner 12/06/18 Tubing Machine Tender Relationship Specialty Start Date End Date Jah Mas MD [address] [place] [address] PCP - endocrinology Internal Medicine 11/06/21 Jah Mas MD [address] [place] [address] PCP - General Internal Medicine 11/06/21 Maria Elena Parekh APRN.RETAINING ROOM CUTTER [address] [place] [address] Referring Nurse Practitioner 12/02/18 Maria Elena Parekh APRN.RETAINING ROOM CUTTER [address] [place] [address] Referring Nurse Practitioner 12/06/18 Tubing Machine Tender Relationship Specialty Start Date End Date Jah Mas MD [address] [place] [address] PCP - endocrinology Internal Medicine 11/06/21 Jah Mas MD [address] [place] [address] PCP - General Internal Medicine 11/06/21 Maria Elena Parekh APRN.RETAINING ROOM CUTTER [address] [place] [address] Referring Nurse Practitioner 12/02/18 Maria Elena Parekh APRN.RETAINING ROOM CUTTER [address] [place] [address] Referring Nurse Practitioner 12/06/18 Tubing Machine Tender Relationship Specialty Start Date End Date Jah Mas MD [address] [place] [address] PCP - endocrinology Internal Medicine 11/06/21 Jah Mas MD [address] [place] [address] PCP - General Internal Medicine 11/06/21 Maria Elena Parekh APRN.RETAINING ROOM CUTTER [address] [place] [address] Referring Nurse Practitioner 12/02/18 Maria Elena Parekh APRN.RETAINING ROOM CUTTER [address] [place] [address] Referring Nurse Practitioner 12/06/18 Team Status: Active Member Role Status Dates Dr. Jah Mas MD Primary Care Provider Active Team Status: Inactive Member Role Status Dates Dr. Jah Mas MD Primary Care Provider, Refer ring Provider Active Destinee Galvan GRIDCAP MACHINE OPERATOR, GRIDCAP MACHINE OPERATOR-C Attending Provider Active Team Status: Inactive Member Role Status Dates Dr. Jah Mas MD Primary Care Provider Active Destinee Galvan GRIDCAP MACHINE OPERATOR, GRIDCAP MACHINE OPERATOR-C Attending Provider, Referrin g Provider Active Tubing Machine Tender Relationship Specialty Start Date End Date Jah Mas MD [address] [place] [address] PCP - endocrinology Internal Medicine 11/06/21 Jah Mas MD [address] [place] [address] PCP - General Internal Medicine 11/06/21 Maria Elena Parekh, 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 [address] [place] [address] Referring Nurse Practitioner 12/02/18 Maria Elena Parekh, 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 [address] [place] [address] Referring Nurse Practitioner 12/06/18 Team Status: Inactive Member Role Status Dates Dr. Jah Mas MD Primary Care Provider, Refer ring Provider Active Dr. Brian Naik MD Attending Provider Active Team Status: Active Member Role Status Dates Dr. Jah Mas MD Primary Care Provider Active Dr. Myah Bazzi MD Attending Provider, Other Pr ovider Active Dr. Brian Naik MD Referring Provider Active Team Status: Inactive Member Role Status Dates Dr. Jah Mas MD Primary Care Provider Active Dr. Myah Bazzi MD Attending Provider Active Dr. Brian Naik MD Referring Provider Active Tubing Machine Tender Relationship Specialty Start Date End Date Jah Mas MD [address] [place] [address] PCP - endocrinology Internal Medicine 11/06/21 Jah Mas MD [address] [place] [address] PCP - General Internal Medicine 11/06/21 Maria Elena Parekh APRN.RETAINING ROOM CUTTER [address] [place] [address] Referring Nurse Practitioner 12/02/18 Maria Elena Parekh APRN.RETAINING ROOM CUTTER [address] [place] [address] Referring Nurse Practitioner 12/06/18 Tubing Machine Tender Relationship Specialty Start Date End Date Jah Mas MD [address] [place] [address] PCP - Endocrinology Internal Medicine 11/06/21 Jah Mas MD [address] [place] [address] PCP - General Internal Medicine 11/06/21 Maria Elena Parekh APRN.RETAINING ROOM CUTTER [address] [place] [address] Referring Nurse Practitioner 12/02/18 Maria Elena Parekh APRN.RETAINING ROOM CUTTER [address] [place] [address] Referring Nurse Practitioner 12/06/18 Tubing Machine Tender Relationship Specialty Start Date End Date Jah Mas MD [address] [place] [address] PCP - Endocrinology Internal Medicine 11/06/21 Jah Mas MD [address] [place] [address] PCP - General Internal Medicine 11/06/21 Maria Elena Parekh APRN.RETAINING ROOM CUTTER [address] [place] [address] Referring Nurse Practitioner 12/02/18 Maria Elena Parekh APRN.RETAINING ROOM CUTTER [address] [place] [address] Referring Nurse Practitioner 12/06/18 Tubing Machine Tender Relationship Specialty Start Date End Date Jah Mas MD [address] [place] [address] PCP - Endocrinology Internal Medicine 11/06/21 Jah Mas MD [address] [place] [address] PCP - General Internal Medicine 11/06/21 Maria Elena Parekh APRN.RETAINING ROOM CUTTER [address] [place] [address] Referring Nurse Practitioner 12/02/18 Maria Elena Parekh APRN.RETAINING ROOM CUTTER [address] [place] [address] Referring Nurse Practitioner 12/06/18 Tubing Machine Tender Relationship Specialty Start Date End Date Jah Mas MD [address] [place] [address] PCP - Endocrinology Internal Medicine 11/06/21 Jah Mas MD [address] [place] [address] PCP - General Internal Medicine 11/06/21 Maria Elena Parekh APRN.RETAINING ROOM CUTTER [address] [place] [address] Referring Nurse Practitioner 12/02/18 Maria Elena Parekh APRN.RETAINING ROOM CUTTER [address] [place] [address] Referring Nurse Practitioner 12/06/18 Tubing Machine Tender Relationship Specialty Start Date End Date Jah Mas MD [address] [place] [address] PCP - Endocrinology Internal Medicine 11/06/21 Jah Mas MD [address] [place] [address] PCP - General Internal Medicine 11/06/21 Maria Elena Parekh APRN.RETAINING ROOM CUTTER [address] [place] [address] Referring Nurse Practitioner 12/02/18 Maria Elena Parekh APRN.RETAINING ROOM CUTTER [address] [place] [address] Referring Nurse Practitioner 12/06/18 Tubing Machine Tender Relationship Specialty Start Date End Date Jah Mas MD [address] [place] [address] PCP - Endocrinology Internal Medicine 11/06/21 Jah Mas MD [address] [place] [address] PCP - General Internal Medicine 11/06/21 Maria Elena Parekh APRN.RETAINING ROOM CUTTER [address] [place] [address] Referring Nurse Practitioner 12/02/18 Maria Elena Parekh APRN.RETAINING ROOM CUTTER [address] [place] [address] Referring Nurse Practitioner 12/06/18 Tubing Machine Tender Relationship Specialty Start Date End Date Jah Mas MD [address] [place] [address] PCP - Endocrinology Internal Medicine 11/06/21 Jah Mas MD [address] [place] [address] PCP - General Internal Medicine 11/06/21 Maria Elena Parekh APRN.RETAINING ROOM CUTTER [address] [place] [address] Referring Nurse Practitioner 12/02/18 Maria Elena Parekh APRN.RETAINING ROOM CUTTER [address] [place] [address] Referring Nurse Practitioner 12/06/18 Tubing Machine Tender Relationship Specialty Start Date End Date Jah Mas MD [address] [place] [address] PCP - Endocrinology Internal Medicine 11/06/21 Jah Mas MD [address] [place] [address] PCP - General Internal Medicine 11/06/21 Maria Elena Parekh APRN.RETAINING ROOM CUTTER [address] [place] [address] Referring Nurse Practitioner 12/02/18 Maria Elena Parekh APRN.RETAINING ROOM CUTTER [address] [place] [address] Referring Nurse Practitioner 12/06/18 Tubing Machine Tender Relationship Specialty Start Date End Date Jah Mas MD [address] [place] [address] PCP - Endocrinology Internal Medicine 11/06/21 Jah Mas MD [facility] [place] [address] PCP - General Internal Medicine 11/06/21 Maria Elena Parehk APRN.RETAINING ROOM CUTTER [facility] [place] [address] Referring Nurse Practitioner 12/02/18 Maria Elena Parekh APRN.RETAINING ROOM CUTTER [facility] [place] [address] Referring Nurse Practitioner 12/06/18 Tubing Machine Tender Relationship Specialty Start Date End Date Jah Mas MD [address] [place] [address] PCP - Endocrinology Internal Medicine 11/06/21 Jah Mas MD [facility] [place] [address] PCP - General Internal Medicine 11/06/21 Maria Elena Parekh APRN.RETAINING ROOM CUTTER [facility] [place] [address] Referring Nurse Practitioner 12/02/18 Maria Elena Parekh APRN.RETAINING ROOM CUTTER [address] [place] [address] Referring Nurse Practitioner 12/06/18 Tubing Machine Tender Relationship Specialty Start Date End Date Jah Mas MD [address] [place] [address] PCP - Endocrinology Internal Medicine 11/06/21 Jah Mas MD [address] [place] [address] PCP - General Internal Medicine 11/06/21 Maria Elena Parekh APRN.RETAINING ROOM CUTTER [address] [place] [address] Referring Nurse Practitioner 12/02/18 Maria Elena Parekh APRN.RETAINING ROOM CUTTER [address] [place] [address] Referring Nurse Practitioner 12/06/18 Tubing Machine Tender Relationship Specialty Start Date End Date Jah Mas MD [address] [place] [address] PCP - Endocrinology Internal Medicine 11/06/21 Jah Mas MD [address] [place] [address] PCP - General Internal Medicine 11/06/21 Maria Elena Parekh APRN.RETAINING ROOM CUTTER [address] [place] [address] Referring Nurse Practitioner 12/02/18 Maria Elena Parekh APRN.RETAINING ROOM CUTTER [address] [place] [address] Referring Nurse Practitioner 12/06/18 Tubing Machine Tender Relationship Specialty Start Date End Date Jah Mas MD [address] [place] [address] PCP - Endocrinology Internal Medicine 11/06/21 Jah Mas MD [address] [place] [address] PCP - General Internal Medicine 11/06/21 Maria Elena Parekh APRN.RETAINING ROOM CUTTER [facility] [place] [address] Referring Nurse Practitioner 12/02/18 Maria Elena Parekh APRN.RETAINING ROOM CUTTER [facility] [place] [address] Referring Nurse Practitioner 12/06/18 Tubing Machine Tender Relationship Specialty Start Date End Date Jah Mas MD [address] [place] [address] PCP - Endocrinology Internal Medicine 11/06/21 Jah Mas MD [address] [place] [address] PCP - General Internal Medicine 11/06/21 Maria Elena Parekh APRN.RETAINING ROOM CUTTER [address] [place] [address] Referring Nurse Practitioner 12/02/18 Maria Elena Parekh APRN.RETAINING ROOM CUTTER [facility] [place] [address] Referring Nurse Practitioner 12/06/18 Tubing Machine Tender Relationship Specialty Start Date End Date Jah Mas MD [address] [place] [address] PCP - Endocrinology Internal Medicine 11/06/21 Jah Mas MD [address] [place] [address] PCP - General Internal Medicine 11/06/21 Maria Elena Parekh APRN.RETAINING ROOM CUTTER [address] [place] [address] Referring Nurse Practitioner 12/02/18 Maria Elena Parekh APRN.RETAINING ROOM CUTTER [address] [place] [address] Referring Nurse Practitioner 12/06/18 Margarita Licona 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 [address] [place] [address] Director [employer] Internal Medicine 06/27/24 Tubing Machine Tender Relationship Specialty Start Date End Date Jah Mas MD [address] [place] [address] PCP - Endocrinology Internal Medicine 11/06/21 Jah Mas MD [address] [place] [address] PCP - General Internal Medicine 11/06/21 Maria Elena Parekh APRN.RETAINING ROOM CUTTER [address] [place] [address] Referring Nurse Practitioner 12/02/18 Maria Elena Parekh APRN.RETAINING ROOM CUTTER [address] [place] [address] Referring Nurse Practitioner 12/06/18 Margarita Licona, 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 [address] [place] [address] Director [employer] Internal Medicine 06/27/24 Tubing Machine Tender Relationship Specialty Start Date End Date Jah Mas MD [address] [place] [address] PCP - Endocrinology Internal Medicine 11/06/21 Jah Mas MD [address] [place] [address] PCP - General Internal Medicine 11/06/21 Maria Elena Parekh, 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 [address] [place] [address] Referring Nurse Practitioner 12/02/18 Maria Elena Parekh, 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 [address] [place] [address] Referring Nurse Practitioner 12/06/18 Margarita Licona, 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 [address] [place] [address] Director [employer] Internal Medicine 06/27/24 Tubing Machine Tender Relationship Specialty Start Date End Date Jah Mas MD [address] [place] [address] PCP - Endocrinology Internal Medicine 11/06/21 Jah Mas MD [address] [place] [address] PCP - General Internal Medicine 11/06/21 Maria Elena Parekh APRN.RETAINING ROOM CUTTER [address] [place] [address] Referring Nurse Practitioner 12/02/18 Maria Elena Parekh APRN.RETAINING ROOM CUTTER [address] [place] [address] Referring Nurse Practitioner 12/06/18 Margarita Licona, 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 [address] [place] [address] Director [employer] Internal Medicine 06/27/24 Tubing Machine Tender Relationship Specialty Start Date End Date aJh Mas MD [address] [place] [address] PCP - Endocrinology Internal Medicine 11/06/21 Jah Mas MD [address] [place] [address] PCP - General Internal Medicine 11/06/21 Maria Elena Parekh, 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 [address] [place] [address] Referring Nurse Practitioner 12/02/18 Maria Elena Parekh 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 [address] [place] [address] Referring Nurse Practitioner 12/06/18 Margarita Licona, 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 [address] [place] [address] Director [employer] Internal Medicine 06/27/24 Tubing Machine Tender Relationship Specialty Start Date End Date Jah Mas MD [address] [place] [address] PCP - Endocrinology Internal Medicine 11/06/21 Jah Mas MD [address] [place] [address] PCP - General Internal Medicine 11/06/21 Maria Elena Parekh 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 [address] [place] [address] Referring Nurse Practitioner 12/02/18 Maria Elena Parekh APRN.RETAINING ROOM CUTTER [address] [place] [address] Referring Nurse Practitioner 12/06/18 Margarita Licona 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 [address] [place] [address] Director [employer] Internal Medicine 06/27/24 Tubing Machine Tender Relationship Specialty Start Date End Date Jah Mas MD [address] [place] [address] PCP - Endocrinology Internal Medicine 11/06/21 Jah Mas MD [address] [place] [address] PCP - General Internal Medicine 11/06/21 Maria Elena Parekh APRN.RETAINING ROOM CUTTER [address] [place] [address] Referring Nurse Practitioner 12/02/18 Maria Elena Parekh APRN.RETAINING ROOM CUTTER [address] [place] [address] Referring Nurse Practitioner 12/06/18 Margarita Licona, 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 [address] [place] [place] [address] Director [employer] Internal Medicine 06/27/24 Tubing Machine Tender Relationship Specialty Start Date End Date Jah Mas MD [address] [facility] [place] [address] PCP - Endocrinology Internal Medicine 11/06/21 Jah Mas MD [address] [place] [address] PCP - General Internal Medicine 11/06/21 Maria Elena Parekh, 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 [address] [place] [address] Referring Nurse Practitioner 12/02/18 Maria Elena Parekh, 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 [address] [place] [address] Referring Nurse Practitioner 12/06/18 Margarita Licona, 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 [address] [place] [place] [address] [facility] Internal Medicine 06/27/24 Tubing Machine Tender Relationship Specialty Start Date End Date Jah Mas MD [address] [facility] [place] [address] PCP - Endocrinology Internal Medicine 11/06/21 Jah Mas MD [address] [place] [address] PCP - General Internal Medicine 11/06/21 Maria Elena Parekh, 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 [address] [place] [address] Referring Nurse Practitioner 12/02/18 Maria Elena Parekh APRN.RETAINING ROOM CUTTER [address] [place] [address] Referring Nurse Practitioner 12/06/18 Margarita Licona, 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 [address] [place] [address] Director [employer] Internal Medicine 06/27/24 Tubing Machine Tender Relationship Specialty Start Date End Date Jah Mas MD [address] [place] [address] PCP - Endocrinology Internal Medicine 11/06/21 Jah Mas MD [address] [place] [address] PCP - General Internal Medicine 11/06/21 Maria Elena Parekh, 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 [address] [place] [address] Referring Nurse Practitioner 12/02/18 Maria Elena Parekh 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 [address] [place] [address] Referring Nurse Practitioner 12/06/18 Margarita Licona, 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 [address] [place] [address] Director [employer] Internal Medicine 06/27/24 Tubing Machine Tender Relationship Specialty Start Date End Date Jah Mas MD [address] [place] [address] PCP - Endocrinology Internal Medicine 11/06/21 Jah Mas MD [address] [place] [address] PCP - General Internal Medicine 11/06/21 Maria Elena Parekh APRN.RETAINING ROOM CUTTER [address] [place] [address] Referring Nurse Practitioner 12/02/18 Maria Elena Parekh APRN.RETAINING ROOM CUTTER [address] [place] [address] Referring Nurse Practitioner 12/06/18 Margarita Licona APRN.RETAINING ROOM CUTTER [address] [place] [address] Director [employer] Internal Medicine 06/27/24 Tubing Machine Tender Relationship Specialty Start Date End Date Jah Mas MD [address] [place] [address] PCP - Endocrinology Internal Medicine 11/06/21 Jah Mas MD [address] [place] [address] PCP - General Internal Medicine 11/06/21 Maria Elena Parekh APRN.RETAINING ROOM CUTTER [address] [place] [address] Referring Nurse Practitioner 12/02/18 Maria Elena Parekh APRN.RETAINING ROOM CUTTER [address] [place] [address] Referring Nurse Practitioner 12/06/18 Margarita Licona, 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 [address] [place] [address] [facility] Internal Medicine 06/27/24 Tubing Machine Tender Relationship Specialty Start Date End Date Jah Mas MD [address] [place] [address] PCP - Endocrinology Internal Medicine 11/06/21 Jah Mas MD [address] [facility], [place] [address] PCP - General Internal Medicine 11/06/21 Maria Elena Parekh, 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 [address] [place] [address] Referring Nurse Practitioner 12/02/18 Maria Elena Parekh, 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 [address] [place] [address] Referring Nurse Practitioner 12/06/18 Margarita Licona, 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 [address] [place] [address] [facility] Internal Medicine 06/27/24 Team Status: Inactive Member Role Status Dates Dr. Jah Mas MD Primary Care Provider Active Start: August 18, 2024 End: August 18, 2024 Dr. Jah Mas MD Referring Provider Active Start: August 18, 2024 End: August 18, 2024 ANDREW Damon Attending Provider Active Start: August 18, 2024 End: August 18, 2024 Team Status: Inactive Member Role Status Dates Dr. Jah Mas MD Primary Care Provider Active Start: December 07, 2024 End: December 07, 2024 Dr. Jah Mas MD Referring Provider Active Start: December 07, 2024 End: December 07, 2024 ANDREW Damon Attending Provider Active Start: December 07, 2024 End: December 07, 2024 Team Status: Active Member Role Status Dates Dr. Jah Mas MD Primary Care Provider Active Start: January 06, 2025 Dr. Clinton Dela Cruz DO Emergency Provider Active Start: January 06, 2025 Dr. Xavi Orona DO Admit Provider Active Start: January 06, 2025 Dr. Xavi Orona DO Attending Provider Active Start: January 06, 2025 FOR RECORDS PERTAINING TO PATIENTS WHO ARE OR HAVE BEEN ENROLLED IN A CHEMICAL DEPENDENCY/SUBSTANCEABUSE PROGRAM, SOME INFORMATION MAY BE OMITTED. This clinical summary was aggregated from multiple sources. Caution should be exercised in using it in the provision of clinical care. This summary normalizes information from multiple sources, and as a consequence, information in this document may materially change the coding, format and clinical context of patient data. In addition, data may be omitted in some cases. CLINICAL DECISIONS SHOULD BE BASED ON THE PRIMARY CLINICAL RECORDS. [employer] provides no warranty or guarantee of the accuracy or completeness of information in this document.
[2025-01-06 19:35] LABS: Reflex Lactate? Y
[2025-01-06 20:02] LABS: Allen Test Positive; Base Excess -29 mmol/L (-2 to +2); FI02 15.0; PO2 86 mmHG (75-100); SITE L Radial; SO2 88 % (95-99); Time Given 19:54:47
[2025-01-06] MEDS: Sodium Bicarbonate 8.4% 50 ML Syringe 100 MEQ IV (20:24)
[2025-01-06] MEDS: Sodium Bicarbonate 50 MEQ in Dextrose 5%-Water (1000mL Bag) 1,000 ML 150 MEQ IV (20:34)
[2025-01-06] MEDS: Norepinephrine 8 MG in 0.9% Normal Saline (250mL Bag) 242 ML 9.4 MG CONT INF (20:45)
[2025-01-06 21:19] LABS: Barbiturate Urine NEGATIVE (< 200 ng/mL); Benzodiazepine Urine NEGATIVE (< 200 ng/mL); PCP Urine NEGATIVE (< 25 ng/mL); THC Urine PRESUMPTIVE POSITIVE (< 50 ng/mL)
--- NOTE | 2025-01-06 21:22 | CPS ---
Dr. Moore notified of critical value by this PSYCHOLOGY TECHNICIAN, ABG not re-ran due to insufficient sample
[2025-01-06] MEDS: Vancomycin HCl 2,000 MG in 0.9% Normal Saline (500mL Bag) 500 ML 250 MG IV (21:49)
[2025-01-06] MEDS: Lactated Ringers 1,000 ML 100 ML IV (21:52)
--- NOTE | 2025-01-06 21:53 | CPS ---
Dr. Moore notified of critical result, re-run not done due to insufficient abg sample
[2025-01-06 22:00] LABS: Allen Test Positive; Base Excess -23 mmol/L (-2 to +2); FI02 50.0; PO2 115 mmHG (75-100); SITE R Radial; SO2 97 % (95-99); Time Given 21:53:25
[2025-01-06] MEDS: 0.9% Saline Lock 10 ML Syringe IV (22:09)
[2025-01-06] MEDS: Heparin Injection (Vial) 5,000 UNIT/ML VIAL 5000 UNIT SC (22:21)
[2025-01-06] MEDS: Piperacil/Tazobactam 3.375 GM in 0.9% Normal Saline (50mL MB+) 50 ML IV (22:26)
[2025-01-06 22:52] LABS: Anion Gap 33 (5-15); BUN 69 mg/dL (4-19); BUN/Creat Ratio 29.8 RATIO (10-20); Calcium,Total 7.2 mg/dL (7.6-11.0); Carbon Dioxide 6.0 mmol/L (21.0-32.0); Chloride 92 mmol/L (98-108); Estimated Creatinine Clearance 39.67 ml/min (50-250); Glucose 343 mg/dL (70-99); Potassium 4.2 mmol/L (3.3-5.1)
--- NOTE | 2025-01-06 23:00 | PCM.RX.CS ---
Consult Antibiotic Management Pharmacy has been consulted to manage selected antibiotic: Vancomycin Type of Intervention Type of Consult: New start Suspected Infection Suspected Infection: Pneumonia Labs Labs: Sodium 131 mmol/L (133-145) L 01/06/25 22:15 Potassium 4.2 mmol/L (3.3-5.1) 01/06/25 22:15 Chloride 92 mmol/L (98-108) L 01/06/25 22:15 Carbon Dioxide 6.0 mmol/L (21.0-32.0) L* 01/06/25 22:15 Anion Gap 33 (5-15) H 01/06/25 22:15 BUN 69 mg/dL (4-19) H 01/06/25 22:15 Creatinine 2.30 mg/dL (0.70-1.20) H 01/06/25 22:15 Est GFR (MDRD) Non-Af 34 (>60) L 01/06/25 22:15 BUN/Creatinine Ratio 29.8 RATIO (10-20) H 01/06/25 22:15 Glucose 343 mg/dL (70-99) H 01/06/25 22:15 Dosing Weight Weight used for dosin kg Estimated Creatinine Clearance Estimated Creatinine Clearance: 40 Goal Trough Goal Trough: 15-20 mcg/mL Pharmacy Plan for Drug Dosing Pharmacy Plan for Drug Dosing: Pharmacy Service will continue to monitor and adjust dosing as required. Follow-Up Labs Follow-Up Labs: Trough: Vancomycin Date/Time Labs Ordered Labs to be done on [date and time ordered]: 01/08/25 @0919
[2025-01-06 23:56] LABS: Anion Gap UNABLE TO CALCULATE (5-15); BUN 63 mg/dL (4-19); BUN/Creat Ratio 32.8 RATIO (10-20); Calcium,Total 5.6 mg/dL (7.6-11.0); Carbon Dioxide < 2.0 mmol/L (21.0-32.0); Chloride 97 mmol/L (98-108); Estimated Creatinine Clearance 47.28 ml/min (50-250); Glucose 573 mg/dL (70-99); Potassium 4.0 mmol/L (3.3-5.1)
[2025-01-07] VITALS (42 sets, daily range): BP systolic 79–128; BP diastolic 57–78; PULSE 99–117; RESP 14–40; TEMP 36.3–37.3; O2SAT 73–100; BMI 24.4
[2025-01-07 03:20] LABS: Anion Gap 27 (5-15); BUN 77 mg/dL (4-19); BUN/Creat Ratio 26.3 RATIO (10-20); Calcium,Total 7.3 mg/dL (7.6-11.0); Carbon Dioxide 12.2 mmol/L (21.0-32.0); Chloride 94 mmol/L (98-108); Estimated Creatinine Clearance 31.25 ml/min (50-250); Glucose 260 mg/dL (70-99); Potassium 4.3 mmol/L (3.3-5.1)
--- NOTE | 2025-01-07 05:31 | CPS ---
Dr. Rodríguez notified of critical values, abg sample not enough to re-run
[2025-01-07 05:34] LABS: Allen Test Positive; Base Excess -13 mmol/L (-2 to +2); FI02 70.0; PO2 92 mmHG (75-100); SITE R Radial; SO2 95 % (95-99); Time Given 05:30:23
[2025-01-07] MEDS: 0.9% Saline Lock 10 ML Syringe IV ×6 (06:19→21:41)
[2025-01-07 06:20] LABS: Hematocrit 36.5 % (40-54); Hemoglobin 12.4 g/dL (13.0-16.5); Mean Corp Hgb Conc 34.0 g/dL (32-36); Mean Corpuscular Volume 85.1 fL (80-94); Mean Platelet Vol. 11.0 fl (6.2-12.0); Platelet Count 158 K/mm3 (150-450); RBC Distribution Width CV 13.9 % (11.6-14.6); RBC Distribution Width SD 43.3 fl (35.1-43.9); Red Blood Count 4.29 M/mm3 (4.6-6.2); White Blood Count 9.2 K/mm3 (4.4-11.0)
[2025-01-07 07:08] LABS: Anion Gap 23 (5-15); BUN 83 mg/dL (4-19); BUN/Creat Ratio 23.9 RATIO (10-20); Calcium,Total 7.3 mg/dL (7.6-11.0); Carbon Dioxide 16.2 mmol/L (21.0-32.0); Chloride 95 mmol/L (98-108); Estimated Creatinine Clearance 26.37 ml/min (50-250); Glucose 468 mg/dL (70-99); Potassium 4.6 mmol/L (3.3-5.1)
--- NOTE | 2025-01-07 07:10 | PCM.RX.CS ---
Consult Antibiotic Management Pharmacy has been consulted to manage selected antibiotic: Vancomycin Type of Intervention Type of Consult: Follow-up Suspected Infection Suspected Infection: Pneumonia Labs Labs: Sodium 134 mmol/L (133-145) 01/07/25 06:10 Potassium 4.6 mmol/L (3.3-5.1) 01/07/25 06:10 Chloride 95 mmol/L (98-108) L 01/07/25 06:10 Carbon Dioxide 16.2 mmol/L (21.0-32.0) L 01/07/25 06:10 Anion Gap 23 (5-15) H 01/07/25 06:10 BUN 83 mg/dL (4-19) H 01/07/25 06:10 Creatinine 3.46 mg/dL (0.70-1.20) H 01/07/25 06:10 Est GFR (MDRD) Non-Af 21 (>60) L 01/07/25 06:10 BUN/Creatinine Ratio 23.9 RATIO (10-20) H 01/07/25 06:10 Glucose 468 mg/dL (70-99) H* 01/07/25 06:10 Microbiology Microbiology: Microbiology 01/06/25 22:15 Nasal Secretion MRSA (PCR) - Final Pharmacy Plan for Drug Dosing Pharmacy Plan for Drug Dosing: DAILY ASSESSMENT Current Vancomycin Dose: 500MG Q12 Number of Doses Received: 1 (2000MG LOADING DOSE) Current Renal Function: SCr 3.46 mg/dL, CrCl 26 mL/min Renal Function Trend: worsened, 2.3 mg/dL (01/06) and 2.92 mg/dL(01/07) Lab/Micro: pending Any Change in Vanc Plan: Yes, regimen adjusted to 750mg Q24H (@2200) due to change in renal function per policy. Trough adjusted to prior to the 3rd total dose Pending Level: 01/08/25 @ 2130 Pharmacy Service will continue to monitor and adjust dosing as required.
--- NOTE | 2025-01-07 07:33 | PCM.PN.HOSP ---
Reason for Visit Reason for Visit: Diagnoses Type 2 diabetes mellitus with ketoacidosis without coma (01/06/25) Objective Data Objective Data Vital Signs: Vital Signs Temp Pulse Resp BP Pulse Ox O2 Del Method O2 Flow Rate 98.3 F 111 H 28 H 97/66 92 CPAP 15 01/07/25 00:00 01/07/25 07:04 01/07/25 07:04 01/07/25 00:00 01/07/25 07:04 01/07/25 06:00 01/06/25 22:15 FiO2 70 01/07/25 07:04 Oxygen Flow Rate (L/min) 15 Oxygen Delivery Method CPAP Weight: 170 lb 6.677 oz Body Mass Index (BMI) 24.4 Intake & Output: Intake and Output for Last 24 Hours 01/05/25 01/06/25 01/07/25 23:59 23:59 23:59 Intake Total 2792.78 / 3332.78 1104.93 / 1104.93 Output Total 35 / 35 Balance 2792.78 / 3297.78 1069.93 / 1069.93 Lab / Micro Data 01/07/25 06:10 01/07/25 06:10 Labs: Laboratory Results - last 24 hr 01/06/25 14:21: WBC 27.6 H, RBC 4.44 L, Hgb 12.9 L, Hct 39.8 L, MCV 89.6, MCH 29.1, MCHC 32.4, RDW Std Deviation 46.4 H, RDW Coeff of Candace 14.0, Plt Count 234, MPV 11.0, Neut % (Auto) Not Reportable, Absolute Neuts (auto) 25.9 H, Absolute Lymphs (auto) 0.30 L, Total Counted 100, Neutrophils % (Manual) 94 H, Lymphocytes % (Manual) 1 L, Monocytes % (Manual) 4, Eosinophils % (Manual) 1, Platelet Estimate ADEQUATE, RBC Morphology NORM C+C, Sodium 122 L, Potassium 4.8, Chloride 75 L, Carbon Dioxide 4.2 L*, Anion Gap TNP, BUN 77 H, Creatinine 2.52 H, Estim Creat Clear Calc 43.86 L, Est GFR (MDRD) Non-Af 30 L, BUN/Creatinine Ratio 30.5 H, Glucose 788 H*, Lactic Acid 2.6 H*, Calcium 8.6, Magnesium 2.6 H, Total Bilirubin 0.21, AST 164 H, ALT 61 H, Alkaline Phosphatase 132 H, Total Protein 6.9, Albumin 4.3, Globulin 2.6, Albumin/Globulin Ratio 1.6, Lipase 74, b-Hydroxybutyric mmol/L 12.0 H, Ethyl Alcohol < 10.1 01/06/25 16:12: Urine Color Yellow, Urine Clarity Sl. Cloudy, Urine pH 5.0, Ur Specific Randolph 1.025, Urine Protein 30 H, Urine Glucose (UA) 1000 H, Urine Ketones 15 H, Urine Occult Blood 250 H, Urine Nitrite Negative, Urine Bilirubin Negative, Urine Urobilinogen Normal, Ur Leukocyte Esterase Negative, Urine RBC 5-10 SEEN, Urine WBC 0-5 SEEN, Ur Squamous Epith Cells 0 SEEN, Urine Bacteria 1+, Urine Mucus 0 SEEN, Urine Opiates Screen NEGATIVE, U Buprenorphine Qual NEGATIVE, Ur Oxycodone Screen NEGATIVE, Urine Methadone Screen NEGATIVE, Urine Fentanyl Screen NEGATIVE, Ur Barbiturates Screen NEGATIVE, Ur Phencyclidine Scrn NEGATIVE, Ur Amphetamines Screen NEGATIVE, U Benzodiazepines Scrn NEGATIVE, Urine Cocaine Screen NEGATIVE, U Cannabinoids Screen PRESUMPTIVE POSITIVE 01/06/25 16:46: POC Glucose > 500 H* 01/06/25 17:54: POC Glucose > 500 H* 01/06/25 18:04: Sodium 129 L, Potassium 4.0, Chloride 97 L, Carbon Dioxide < 2.0 L*, Anion Gap UNABLE TO CALCULATE L, BUN 63 H, Creatinine 1.93 H, Estim Creat Clear Calc 47.28 L, Est GFR (MDRD) Non-Af 42 L, BUN/Creatinine Ratio 32.8 H, Glucose Cancelled 01/06/25 18:04: Glucose 573 H*, Calcium 5.6 L* 01/06/25 18:50: POC Glucose > 500 H* 01/06/25 19:56: POC Glucose 446 H 01/06/25 20:37: Lactic Acid 2.2 H* 01/06/25 21:07: POC Glucose 464 H* 01/06/25 22:15: Sodium 131 L, Potassium 4.2, Chloride 92 L, Carbon Dioxide 6.0 L*, Anion Gap 33 H, BUN 69 H, Creatinine 2.30 H, Estim Creat Clear Calc 39.67 L, Est GFR (MDRD) Non-Af 34 L, BUN/Creatinine Ratio 29.8 H, Glucose 343 H, Hemoglobin A1c 10.7 H, Calcium 7.2 L 01/06/25 22:22: POC Glucose 389 H 01/06/25 23:12: POC Glucose 333 H 01/07/25 01:13: POC Glucose 290 H 01/07/25 02:20: Sodium 133, Potassium 4.3, Chloride 94 L, Carbon Dioxide 12.2 L, Anion Gap 27 H, BUN 77 H, Creatinine 2.92 H, Estim Creat Clear Calc 31.25 L, Est GFR (MDRD) Non-Af 25 L, BUN/Creatinine Ratio 26.3 H, Glucose 260 H, Calcium 7.3 L, POC Glucose 240 H 01/07/25 04:15: POC Glucose 237 H 01/07/25 06:10: WBC 9.2, RBC 4.29 L, Hgb 12.4 L, Hct 36.5 L, MCV 85.1 D, MCH 28.9, MCHC 34.0, RDW Std Deviation 43.3, RDW Coeff of Candace 13.9, Plt Count 158, MPV 11.0, Sodium 134, Potassium 4.6, Chloride 95 L, Carbon Dioxide 16.2 L, Anion Gap 23 H, BUN 83 H, Creatinine 3.46 H, Estim Creat Clear Calc 26.37 L, Est GFR (MDRD) Non-Af 21 L, BUN/Creatinine Ratio 23.9 H, Glucose 468 H*, Calcium 7.3 L Micro: Microbiology 01/06/25 22:15 Nasal Secretion MRSA (PCR) - Final ABG Data ABG results: ABG 01/06/25 01/06/25 01/07/25 19:53 21:51 05:28 Specimen Type ART ART ART Sample Site L Radial R Radial R Radial pH 6.93 L* 7.09 L* 7.19 L* Bicarbonate Actual 3.3 L 6.8 L 15.1 L Total CO2 < 5 8 16 Base Excess -29 L -23 L -13 L O2 Saturation 88 L 97 95 O2 % 15.0 50.0 70.0 ABG pCO2 15.6 L* 22.3 L 39.5 ABG pO2 86 115 H 92 Nito Test Positive Positive Positive O2 Delivery Device NRB CPAP CPAP Vent Mode Not entered Not entered Not entered Crit Call To/Read Back Yes Yes Yes Blood Gas Notified Whom maya Aguirre Blood Gas Notified Time 19:54:47 21:53:25 05:30:23 Radiography Diagnostic Testing: Radiology Impression Chest X-Ray 01/06/25 14:35 IMPRESSION: Pulmonary congestion and edema. Pneumonia cannot be excluded. Reading Location: [facility] Brain CT 01/06/25 15:30 IMPRESSION: No evidence of intracranial pathology. Reading Location: [facility] Physical Exam Narrative Seen and examined Patient was admitted last evening with DKA, DIYA, altered mental status and hypoglycemia. History was limited. Patient has history of type 1 diabetes mellitus, insulin-dependent. He has been vomiting and drinking alcohol. Although the record shows that he has insulin pump but he was not wearing insulin pump. I was called stat by the incinerator operator to go to ICU at 7:34 AM and I went to ICU As per nursing report, patient very agitated at rest, on 100% nonrebreather, tachypneic 28 to 35/min, tachycardic, pulse ox was in low 80s even on 100% FiO2, could not tolerate BiPAP and could not maintain his mentation therefore decided to intubate Physical exam: General: Agitated, restless moaning, nonverbal HEENT: Atraumatic, PERRLA, EOMI, Normocephalic. Oral: Edentulous, oral mucosa dry. Thick secretions and black coating noted on posterior tongue during intubation Neck: Supple, No JVD, Negative Carotid Bruits Chest wall/Lungs: Air entry diminished in bilateral lung bases. No crepitation/rhonchi Cardiovascular: Sinus tachycardia, soft heart sound, no M/G/R Abdomen: Bowel Sounds sluggish, Soft, Non Tender, Non-Distended : Anuria, Brady catheter no renal angle tenderness. No suprapubic tenderness. Extremities: No edema, Capillary Refill Less than 3 Seconds Skin: Multiple scabs in lower extremities Musculoskeletal: No Tenderness to Palpation of Joints or Extremities Neurological: No obvious lateralizing neurological sign, detailed neuroexam not done Psych/Mental Status: Agitated, restless Assessment & Plan Assessment/Plan (1) DKA (diabetic ketoacidoses): PLAN: Plan Patient is a 49-year-old male who presented to [facility] ED on 01/06/2025 with altered mental status and hyperglycemia. Patient remained agitated disoriented restless and responded minimally to painful stimuli in ICU throughout the night. 1. DKA with severe high anion gap metabolic acidosis, poorly controlled type 1 diabetes mellitus with diabetic neuropathy: The patient is being admitted in ICU. Labs consistent with high anion gap metabolic acidosis with initial ABG shows 6.93/15.6/86, bicarb 3.3 (less than 5). Initially patient was started on normal saline bolus, then bicarb drip but scaffold builder changed to normal saline. Subsequent ABG shows mild improvement in pH 7.19/pCO2 39.5/92 on CPAP. Patient was intubated intermittently. On propofol and fentanyl. Special Education Professor consulted. 2. DIYA ? Creatinine 2.52, BUN 77 on admit. Baseline creatinine around 0.9. Presume prerenal etiology in setting of DKA as above. Creatinine still going up since admission from 2.52, 1.93-3.46. Life Coach consulted. Renal and bladder ultrasound ordered. 3. Acute metabolic encephalopathy due to DKA and alcohol withdrawal and metabolic acidosis ? Presumed secondary to DKA with severe acidosis as noted above. CT brain negative. Intubated on sedated 3. Acute hypoxic respiratory failure, exact etiology unclear but possible due to poor respiratory excursion/encephalopathy possible pneumonia, cannot maintain airway: Patient was intubated due to hypoxia, cannot maintain airway, vomiting in the ED and possible aspiration: Infectious workup ordered. Patient also has history of smoking every day unclear about the history of COPD. Initially patient was on BiPAP but he could not tolerate therefore intubated as mentioned above. Bronchodilator and IV Solu-Medrol ordered. 4. Concern for pneumonia versus infection of unclear source ? Chest x-ray on admit showed pulmonary vascular congestion and edema but pneumonia could not be excluded. WBC count 27. Infectious workup ordered. Continue empirically with IV vancomycin and Zosyn for now. 6. Hyponatremia ? Sodium 122 on admit. Corrected sodium 133 in setting of severe hyperglycemia. Repeat sodium is 134 therefore hyponatremia corrected 7. Acute on chronic debility with history of left BKA ? PT/OT/case management consulted. Appreciate therapy recommendations. 8. Possible alcoholic hepatitis: Liver chemistries elevated, albumin 4.3, globulin 2.6, A/G ratio 1.6, AST 164, ALT 61, ALP 134. Lactic acid went up from 2.6-5.6. Right upper quadrant sonogram including spleen ordered Chronic medical conditions: ? Initial BMI 37 on admit. Repeat weight measurement shows weight 170 pounds, BMI 24.5 kg/m? and therefore no obesity. Actually patient looks mild chronic malnutrition with decreased muscle mass of extremities, chest wall muscles and craniofacial muscles ? History of PAD, hypertension, hyperlipidemia: Hypotensive to the high 80s over 50s on admit. Continue home atorvastatin. Holding home amlodipine and lisinopril. ? Anxiety/depression: Continue home sertraline. ? GERD: Continue home PPI. ? Hypothyroidism: Continue home Synthroid. DVT prophylaxis: Heparin subcu CODE STATUS: Full code, unverified Total time of the visit including total time spent in counseling or coordination of care, (more than 50% of the total time, spent in obtaining medical information from nurses and other ancillary care providers ,explaining to the patient about labs, imaging, diagnosis and management of active complex medical conditions), management of acute ICU care including respiratory failure, high anion gap metabolic acidosis, anuria, alcoholic, review of labs and imaging is 60 min Charges/Coding Visit Charges Inpatient E&M: 52475 Subs Hosp L3
[2025-01-07] MEDS: Propofol 10MG/Ml 1,000 MG/100 ML Bottle 4.6 MG CONT INF (08:00)
--- NOTE | 2025-01-07 08:00 | NURSING ---
Pulling at tubes/lines. Thrashing about bed. Unable to redirect despite multiple attempts. Bilateral soft wrist restraints applied.
--- NOTE | 2025-01-07 08:05 | NURSING ---
0740: Entered room for shift change report. Pt confused/agitated, pulling off bipap mask. Pulse ox not reading d/t agitation. Bipap removed and placed on NRB. Very moist sounding upper airway. Suctioned back of throat, appears to be vomit. Sats dropping to 70's on NRB. Dr. Reza stat paged to bedside. 0748: Dr. Reza at bedside and orders intubation 0754: 20mg Etomidate given, bagging patient, sats 85-90% 0759: PT waking up, coughing, additional 20mg Etomidate given 0800: Intubated, 7.5ETT, 22 at lip, + breath sounds (very coarse), + color change
--- NOTE | 2025-01-07 08:26 | US_ITS ---
PROCEDURE: ABDOMEN COMPLETE 01/07/2025 REASON FOR EXAM: ALCOHOLIC LIVER DISEASE, RULE OUT CIRRHOSIS DIYA TECHNIQUE: ABDOMEN COMPLETE COMPARISON: CT abdomen June 14, 2021 FINDINGS: Liver: 21.1 cm length. Echogenicity within normal limits. No biliary ductal dilatation. Normal hepatopetal flow in the main portal vein. Gallbladder: Gallbladder is normal. No sludge or stones. No wall thickening or pericholecystic fluid. Gallbladder wall is 2 mm. Common bile duct: 8 mm. Pancreas: Normal Kidneys: The right kidney measures 12.8 cm elbow 5.2 cm AP x 5.2 cm T. cortical thickness: 1.8 cm no hydronephrosis. No calculi.. The left kidney measures 12.9 cm elbow 5.0 cm AP x 5.5 cm T. cortical thickness is normal at 1.4 cm. No hydronephrosis. No calculi. Both kidneys demonstrate prominent pyramids.. Spleen: Normal length 10.4 cm. Aorta: Normal caliber. IVC: Patent Peritoneal Findings: No ascites. US/Abdomen Complete IMPRESSION: Liver is enlarged, but liver and other organs surveyed are unremarkable otherwi se. Reading Location: [facility]
[2025-01-07] MEDS: 0.9% Normal Saline (1000mL) 1,000 ML 999 ML IV (08:30)
[2025-01-07] MEDS: fentaNYL drip 100 ML 5 MCG CONT INF (08:30)
--- NOTE | 2025-01-07 08:30 | RAD_ITS ---
PROCEDURE: CXR FOR LINE PLACEMENT 01/07/2025 REASON FOR EXAM: INTUBATION TECHNIQUE: CXR FOR LINE PLACEMENT COMPARISON: None FINDINGS: Endotracheal tube 5 cm above the brigida; consider 1 cm advancement. Enteric tube in appropriate position. Diffuse bilateral lung airspace opacities concerning for multifocal pneumonia versus extensive pulmonary edema. No pleural effusion or pneumothorax. Cardiac silhouette is within normal limits. RAD/CXR for Line Placement IMPRESSION: Endotracheal tube 5 cm above the brigida; consider 1 cm advancement. Enteric tub e in appropriate position. Diffuse bilateral lung airspace opacities concerning for multifocal pneumonia v ersus extensive pulmonary edema. Reading Location: [id number]
--- NOTE | 2025-01-07 08:33 | NURSING ---
During the shift this RN had multiple conversations with the hospitalists and the telecare intensivists in regards to the pt status and care. See provider notifications. Throughout the morning the pt became increasing restless and agitated. He was continuously pulling at the tele wires, IVs and CPAP/ nonrebreather. The pt was repositioned in the bed various times as well in attempts to promote comfort and rest. This RN attempted to redirect the pt multiple times throughout the morning with the assistance of other RNs and the VP [employer]. Around 0500 the pt became inconsolable and uncooperative with redirection. At this time the pt proceeded to remove the CPAP from his face while this RN was attempting to encourage the pt to keep the mask on. The pt become physically aggressive and was preventing this RN from replacing the O2 therapy immediately. While attempting to place another form of oxygen therapy to the pt, his SpO2 was noted to decrease from 95% to 50% (with good pleth) almost instantly. A second RN entered the room and assisted in placing the CPAP back on the pt face with the O2 increased to 100% temporally and RT was called to bedside. RT attempted to obtain an ABG twice but was unsuccessful d/t the pt moving around in the bed. Also at this time the hospitalists, Dr. Lockhart, was asked to come to bedside to evaluate the pt with concern for respiratory status (risk of intubation) and agitation/ possible hypoxia. By the time he was at bedside the pt had worn himself out and appeared to be resting. Prior to coming to bedside, the hospitalists gave a secure text order to start precedex on the pt. However, this RN heavily expressed concern about the pt not being able to protect his airway once sedated. The hospitalists did not address any of this RNs concerns for the pt respiratory status d/t that current presentation. It was also at this time that this RN asked Dr. Lockhart his thought about potential alcohol withdrawal given his past history and per the ER note that noted current drinking. Dr. Lockhart agreed with that possibility and verbally gave an order for a one time dose of IV phenobarbital (see MAR). This medication was given to the pt around 0620 (after the pt became agitated again) and appeared to help the pt relax. He was able to leave the CPAP mask on and his SpO2 showed improvement. During shift change report he was seen attempting to remove the mask again and this nurse and the oncoming RNs quickly went to bedside. The mask was removed and a nonrebreather 15L was placed on the pt. This is when the pt was noted to sound wet when he spoke. SpO2 was reading low with a questionable pleth. A Yankauer was set up and thick, dark secretions were suctioned from the back of the pt throat. This pt had been NPO for this RNs entire shift. SpO2 saturation improved slightly and audibly the pt sounded better/ less wet. A dayshift RN had the hospitalist STAT paged to bedside. Upon inspection and discussing the events of the night/ morning, he decided to go forward with intubation. Orders were placed, RT was called to bedside and meds were drawn and given. See MAR and intubation charting. Around the time this RN spoke to Dr. Lockhart about the potential withdrawal, his urine output was mentioned again. Dr. Lockhart was initially notified around midnight about low urine output. This RN flushed the chen to ensure patency. The amount flushed was returned into the tubing and nothing more. This RN also bladder scanned the pt as well this morning to check for retention/ ensure chen was not dislodged. The bladder scan only showed <8mL of urine in the bladder. This RN provided a further update verbally that he had not made any urine since then. No new orders were placed or verbally given.
[2025-01-07] MEDS: Piperacil/Tazobactam 3.375 GM in 0.9% Normal Saline (50mL MB+) 50 ML IV (08:42)
--- NOTE | 2025-01-07 08:56 | PCM.HOSP.N ---
Hospitalist Note Rapid sequence emergency intubation note: Indication: Acute hypoxic respiratory failure, inability to maintain airway, encephalopathy Patient could not tolerate BiPAP. And was hypoxic in 80s even on 100% nonrebreather. Prior to sedative, patient was preoxygenated with Ambu bag to 91% or for 2 to 3 minutes. Patient was given etomidate 20 mg IV and secretions was found near base of tongue, vallecula and epiglottis region. Suction was done. Patient edentulous. Patient was tried but not good view of vocal cords and patient was again getting hypoxic therefore tube was withdrawn and patient preoxygenated to 91%. Another dose of 20 mg IV 28 given and patient was intubated successfully with good breath sound on both side, colorimetric color change. Chest x-ray was ordered. Sputum culture ordered. Chest x-ray shows ET tube 5 cm above brigida, 1 cm advancement but patient saturating well. May trial later on advancing with patient is more stable
--- NOTE | 2025-01-07 09:49 | CON.PCM.RE_ITS ---
Assessment & Plan Assessment/Plan (1) DIYA (acute kidney injury): (2) Altered mental status: (3) Acute hypoxic respiratory failure: PLAN: Plan This is a 49-year-old male with past medical history significant for diabetes mellitus type 1, hypothyroidism, alcohol abuse presented to the ER yesterday with altered mental status changes, high glucose, admitted for DKA with severe high anion gap metabolic acidosis, started on insulin drip, received multiple liters of IV fluids. Unfortunately patient could not tolerate bipap, respiratory status worsened and patient intubated early this morning. Nephrology consulted in view of elevated creatinine. Creatinine 2.52 on admission last labs checked creatinine up to 3.4 this morning. Very minimal urine output, patient has Brady. Patient has been receiving multiple liters IV fluids. Lactic acid was 2.6 on admission, last checked 2.2, bicarb levels improving. Blood pressures have been low and patient was started on Levophed drip, low-dose. DIYA likely secondary to DKA, hypotension. Renal ultrasound report pending. Patient does have indwelling Brady. We will continue with fluid resuscitation, will give dose of Lasix and albumin today. At this time there is no acute indication for renal placement therapy however should kidney function continue to worsen and/or urine output does not improve patient may be heading towards needing [employer]. Reviewed home med list and will continue holding lisinopril and gabapentin. CXR concerning for pulmonary congestion/edema but pneumonia not excluded, patient on Zosyn and vanco, will monitor vanco levels given DIYA. Blood cultures pending. Labs ordered for morning. Further orders forthcoming as hospitalization evolves, thank you for allowing us participate in the care of Mr. Echevarria. Assessment and plan reviewed with Dr. James. HPI Consult Data Date of Consult: 01/07/25 HPI Narrative HPI Narrative: TORI ECHEVARRIA, is a 49 M with past medical history significant for diabetes mellitus type 1, anxiety and depression, hypothyroidism who presented to the emergency room yesterday for altered mental status changes and hyperglycemia. Patient was admitted to ICU for DKA. In the emergency room glucose 788, bicarb 4.2, creatinine 2.52, sodium 122, lactic acid 2.6. CT brain did not show any acute findings. Initial chest x-ray pulmonary congestion and edema, pneumonia cannot be excluded. Patient was given multiple liters of IV fluids, started on insulin drip and admitted to ICU. Unfortunately for patient respiratory status worsened once admitted to ICU he was placed on BiPAP with not much improvement and then intubated this morning. Nephrology consulted in view of elevated creatinine and decreased urine output. Information gathered from the chart and staff. Reviewing patient's creatinine trends, patient has normal baseline creatinine. 06/19/2024 serum creatinine 0.96. Yesterday creatinine 2.52 in ER, early this morning creatinine 3.46 and labs pending currently. Potassium is normal, bicarb improved to 16. Blood pressures have been low patient has been off and on Levophed drip. Urine output only documented as 35 mL, patient has Brady. 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 Tobacco use disorder Polyneuropathy due to type 1 diabetes mellitus Wound discharge MRSA infection Marijuana use Open wound Thyroid disease Insulin dependent diabetes mellitus Arthritis Uses wheelchair Bladder disease Injury of back Difficulty chewing Dietary restriction Amputation of left lower extremity below knee Type 1 diabetes Current use of insulin Back pain due to injury Stroke Restless legs History of stress test Gastroparesis Vision loss of right eye Vision loss of left eye Hearing loss, left Hearing loss, right Anemia Substance abuse Alcohol abuse Anxiety Depression Hypothyroidism Diabetes Chronic pain Rheumatoid arthritis Osteoporosis Pancreatitis GERD (gastroesophageal reflux disease) Hepatitis Smoker Asthma Chest pain Hypertension Migraines Seizures Charcot foot due to diabetes mellitus Charcot ankle Neuropathy Cellulitis (~09/15/21) Diabetes mellitus Home Medications ?Medication ?Instructions ?Recorded ?Last Taken ?Type gabapentin 300 mg capsule 300 mg PO 4X/DAY nerve pain 08/13/20 06/18/22 History pantoprazole 40 mg tablet,delayed 40 mg PO DAILY gerd 08/13/20 06/18/22 History release sertraline 50 mg tablet (Zoloft) 50 mg PO DAILY 06/18/22 History amitriptyline 25 mg tablet 25 mg PO QHS 06/17/2206/18 History insulin glargine 100 unit/mL (3 35 unit (0.35 mL) subc ut QHS #31.5 09/23/23 Unknown Rx mL) subcutaneous pen (Lantus mL Solostar U-100 Insulin) lisinopril 40 mg tablet 40 mg PO QDAY 11/11/23 Unkno wn History insulin pump cartridge,automated #1 ea 02/10/24 Unknow n Rx dose,BT with controller subcutaneous (Omnipod 5 G6 Intro Kit (Gen 5) subcutaneous cartridge with controller) amlodipine 10 mg tablet 10 mg PO DAILY #90 tabs 02/18 08/12 Unknown Rx atorvastatin 20 mg tablet 20 mg PO QHS #90 tabs Unknown Rx blood sugar diagnostic (OneTouch #100 ea 05/02/24 Unkn own Rx Verio test strips) blood-glucose meter (OneTouch #1 ea 05/02/24 Unknown R x Verio Reflect Meter) blood-glucose sensor (FreeStyle #2 ea 08/01/24 Unknown Rx Maikel 2 Plus Sensor device) levothyroxine 25 mcg tablet 25 mcg PO DAILY thyroid #9 0 tabs 08/02/24 Unknown Rx cholecalciferol (vitamin D3) 125 125 mcg PO QDAY #90 c aps 08/31/24 Unknown Rx mcg (5,000 unit) capsule insulin lispro 100 unit/mL 60 unit (0.6 mL) continuous 09/27/24 Unknown Rx subcutaneous solution (Humalog subcutaneous infusion . continuous U-100 Insulin) #54 mL insulin pump cart,auto,BT,G6/L #10 ea 11/21/24 Unknown Rx (Omnipod 5 (G6/Maikel 2 Plus) subcutaneous cartridge) Allergy/AdvReac Type Severity Reaction Status Date / Time No Known Allergies Allergy Verified 08/01/24 14:25 Family History Other Cancer Diabetes Heart disease Surgical History History of bilateral cataract extraction H/O tooth extraction History of left below knee amputation Social History Smoking Status: Current every day smoker tobacco type: cigarettes ROS ROS Narrative Unable to obtain Physical Exam Narrative On ventilator support, no acute distress S1, S2, RRR Lungs sound clear Abdomen soft, nondistended, positive bowel sounds No edema, left BKA, no edema to thighs Indwelling Brady with scant yellow urine in bag Lab / Micro Data 01/07/25 06:10 01/07/25 06:10 Labs: Laboratory Results - last 24 hr 01/06/25 14:21: WBC 27.6 H, RBC 4.44 L, Hgb 12.9 L, Hct 39.8 L, MCV 89.6, MCH 29.1, MCHC 32.4, RDW Std Deviation 46.4 H, RDW Coeff of Candace 14.0, Plt Count 234, MPV 11.0, Neut % (Auto) Not Reportable, Absolute Neuts (auto) 25.9 H, Absolute Lymphs (auto) 0.30 L, Total Counted 100, Neutrophils % (Manual) 94 H, L ymphocytes % (Manual) 1 L, Monocytes % (Manual) 4, Eosinophils % (Manual) 1, Platelet Estimate ADEQUATE, RBC Morphology NORM C+C, Sodium 122 L, Potassium 4.8, Chloride 75 L, Carbon Dioxide 4.2 L*, Anion Gap TNP, BUN 77 H, Creatinine 2.52 H, Estim Creat Clear Calc 43.86 L, Est GFR (MDRD) Non-Af 30 L, B UN/Creatinine Ratio 30.5 H, Glucose 788 H*, Lactic Acid 2.6 H*, Calcium 8.6, M agnesium 2.6 H, Total Bilirubin 0.21, AST 164 H, ALT 61 H, Alkaline Phosphatase 132 H, Total Protein 6.9, Albumin 4.3, Globulin 2.6, Albumin/Globulin Ratio 1.6, Lipase 74, b-Hydroxybutyric mmol/L 12.0 H, Ethyl Alcohol < 10.1 01/06/25 16:12: Urine Color Yellow, Urine Clarity Sl. Cloudy, Urine pH 5.0, Ur Specific [place] 1.025, Urine Protein 30 H, Urine Glucose (UA) 1000 H, Urine Ketones 15 H, Urine Occult Blood 250 H, Urine Nitrite Negative, Urine Bilirubin Negative, Urine Urobilinogen Normal, Ur Leukocyte Esterase Negative, Urine RBC 5-10 SEEN, Urine WBC 0-5 SEEN, Ur Squamous Epith Cells 0 SEEN, Urine Bacteria 1+, Urine Mucus 0 SEEN, Urine Opiates Screen NEGATIVE, U Buprenorphine Qual NEGATIVE, Ur Oxycodone Screen NEGATIVE, Urine Methadone Screen NEGATIVE, Urine Fentanyl Screen NEGATIVE, Ur Barbiturates Screen NEGATIVE, Ur Phencyclidine Scrn NEGATIVE, Ur Amphetamines Screen NEGATIVE, U Benzodiazepines Scrn NEGATIVE, Urine Cocaine Screen NEGATIVE, U Cannabinoids Screen PRESUMPTIVE POSITIVE 01/06/25 16:46: POC Glucose > 500 H* 01/06/25 17:54: POC Glucose > 500 H* 01/06/25 18:04: Sodium 129 L, Potassium 4.0, Chloride 97 L, Carbon Dioxide < 2.0 L*, Anion Gap UNABLE TO CALCULATE L, BUN 63 H, Creatinine 1.93 H, Estim Creat Clear Calc 47.28 L, Est GFR (MDRD) Non-Af 42 L, BUN/Creatinine Ratio 32.8 H, Glucose Cancelled 01/06/25 18:04: Glucose 573 H*, Calcium 5.6 L* 01/06/25 18:50: POC Glucose > 500 H* 01/06/25 19:56: POC Glucose 446 H 01/06/25 20:37: Lactic Acid 2.2 H* 01/06/25 21:07: POC Glucose 464 H* 01/06/25 22:15: Sodium 131 L, Potassium 4.2, Chloride 92 L, Carbon Dioxide 6.0 L*, Anion Gap 33 H, BUN 69 H, Creatinine 2.30 H, Estim Creat Clear Calc 39.67 L, Est GFR (MDRD) Non-Af 34 L, BUN/Creatinine Ratio 29.8 H, Glucose 343 H, H emoglobin A1c 10.7 H, Calcium 7.2 L 01/06/25 22:22: POC Glucose 389 H 01/06/25 23:12: POC Glucose 333 H 01/07/25 01:13: POC Glucose 290 H 01/07/25 02:20: Sodium 133, Potassium 4.3, Chloride 94 L, Carbon Dioxide 12.2 L, Anion Gap 27 H, BUN 77 H, Creatinine 2.92 H, Estim Creat Clear Calc 31.25 L, Est GFR (MDRD) Non-Af 25 L, BUN/Creatinine Ratio 26.3 H, Glucose 260 H, Calcium 7.3 L, POC Glucose 240 H 01/07/25 04:15: POC Glucose 237 H 01/07/25 05:14: POC Glucose 258 H 01/07/25 06:10: WBC 9.2, RBC 4.29 L, Hgb 12.4 L, Hct 36.5 L, MCV 85.1 D, MCH 28.9, MCHC 34.0, RDW Std Deviation 43.3, RDW Coeff of Candace 13.9, Plt Count 158, MPV 11.0, Sodium 134, Potassium 4.6, Chloride 95 L, Carbon Dioxide 16.2 L, Anion Gap 23 H, BUN 83 H, Creatinine 3.46 H, Estim Creat Clear Calc 26.37 L, Est GFR (MDRD) Non-Af 21 L, BUN/Creatinine Ratio 23.9 H, Glucose 468 H*, Calcium 7.3 L 01/07/25 07:43: POC Glucose 262 H 01/07/25 08:39: POC Glucose 263 H Micro: Microbiology 01/06/25 22:15 Nasal Secretion MRSA (PCR) - Final ABG Data ABG results: ABG 01/06/25 01/06/25 01/07/25 19:53 21:51 05:28 Specimen Type ART ART ART Sample Site L Radial R Radial R Radial pH 6.93 L* 7.09 L* 7.19 L* Bicarbonate Actual 3.3 L 6.8 L 15.1 L Total CO2 < 5 8 16 Base Excess -29 L -23 L -13 L O2 Saturation 88 L 97 95 O2 % 15.0 50.0 70.0 ABG pCO2 15.6 L* 22.3 L 39.5 ABG pO2 86 115 H 92 Nito Test Positive Positive Positive O2 Delivery Device NRB CPAP CPAP Vent Mode Not entered Not entered Not entered Crit Call To/Read Back Yes Yes Yes Blood Gas Notified Whom maya Aguirre Blood Gas Notified Time 19:54:47 21:53:25 05:30:23 Imaging Radiology Impression Chest X-Ray 01/06/25 14:35 IMPRESSION: Pulmonary congestion and edema. Pneumonia cannot be excluded. Reading Location: [id number] Brain CT 01/06/25 15:30 IMPRESSION: No evidence of intracranial pathology. Reading Location: [id number] Chest X-Ray 01/07/25 08:30 IMPRESSION: Endotracheal tube 5 cm above the brigida; consider 1 cm advancement. Enteric tube in appropriate position. Diffuse bilateral lung airspace opacities concerning for multifocal pneumonia versus extensive pulmonary edema. Reading Location: [id number]
[2025-01-07] MEDS: Lactated Ringers 1,000 ML 250 ML IV ×2 (09:58→14:01)
[2025-01-07] MEDS: Albumin Human 25% (100 mL) 25 GM/100 ML BAG IV (09:59)
[2025-01-07 10:02] LABS: Allen Test Positive; Base Excess -10 mmol/L (-2 to +2); FI02 60.0; PEEP 10; PO2 63 mmHG (75-100); RR 16; SITE L Radial; SO2 90 % (95-99)
[2025-01-07 10:05] LABS: Prothrombin Time (Protime)PT. 16.2 SECONDS (11.7-14.9)
[2025-01-07 10:33] LABS: Anion Gap 21 (5-15); BUN 86 mg/dL (4-19); BUN/Creat Ratio 22.8 RATIO (10-20); Calcium,Total 7.3 mg/dL (7.6-11.0); Carbon Dioxide 16.4 mmol/L (21.0-32.0); Chloride 97 mmol/L (98-108); Estimated Creatinine Clearance 24.27 ml/min (50-250); Glucose 266 mg/dL (70-99); Potassium 4.2 mmol/L (3.3-5.1)
[2025-01-07 10:40] LABS: Triglycerides 277 mg/dL
[2025-01-07 10:52] LABS: CPK Total, Creatine Kinase 6298 U/L (24-195)
[2025-01-07] MEDS: Heparin Injection (Vial) 5,000 UNIT/ML VIAL 5000 UNIT SC ×2 (10:52→21:37)
[2025-01-07 11:01] LABS: Magnesium 2.2 mg/dL (1.5-2.2)
[2025-01-07 11:12] LABS: AST(SGOT) 251 U/L (<=37); Alanine Aminotransfer ALT/SGPT 74 U/L (<=46); Albumin, Serum 3.1 g/dL (3.5-5.0); Alkaline Phosphatase 104 U/L (40-129); Bilirubin, Direct 0.17 mg/dL (0.00-0.30); Globulin 1.9 g/dL (2.2-4.2)
--- NOTE | 2025-01-07 11:58 | CASEMGMT ---
Pt is currently on the ventilator. TC to pt son, no answer. Unable to complete assessment at this time.
[2025-01-07] MEDS: Pantoprazole Sodium 40 MG in 0.9% Normal Saline (100mL MB+) 100 ML 300 MG IV (13:30)
--- NOTE | 2025-01-07 13:36 | CON.PCM.CC_ITS ---
HPI Consult Data Date of Consult: 01/07/25 HPI Narrative Reason for Consultation: Vent management HPI Narrative: TORI CANTOR, is a 49 M who presents altered with biochemical evidence for DKA, resp distress following suspected aspiration event, he was trialed on NIV but eventually failed and required intubation mechanical ventilation. Now fully supported in ICU on conventional ventilation mode. Blood gases reflect severe metabolic derangement related to ketoacidosis with only partially compensated metabolic acidosis and additionally of concern is marked progression of bilateral pulmonary process not evident on admission CXR. 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 Tobacco use disorder Polyneuropathy due to type 1 diabetes mellitus Wound discharge MRSA infection Marijuana use Open wound Thyroid disease Insulin dependent diabetes mellitus Arthritis Uses wheelchair Bladder disease Injury of back Difficulty chewing Dietary restriction Amputation of left lower extremity below knee Type 1 diabetes Current use of insulin Back pain due to injury Stroke Restless legs History of stress test Gastroparesis Vision loss of right eye Vision loss of left eye Hearing loss, left Hearing loss, right Anemia Substance abuse Alcohol abuse Anxiety Depression Hypothyroidism Diabetes Chronic pain Rheumatoid arthritis Osteoporosis Pancreatitis GERD (gastroesophageal reflux disease) Hepatitis Smoker Asthma Chest pain Hypertension Migraines Seizures Charcot foot due to diabetes mellitus Charcot ankle Neuropathy Cellulitis (~09/15/21) Diabetes mellitus Home Medications ?Medication ?Instructions ?Recorded ?Last Taken ?Type gabapentin 300 mg capsule 300 mg PO 4X/DAY nerve pain 08/13/20 06/18/22 History pantoprazole 40 mg tablet,delayed 40 mg PO DAILY gerd 08/13/20 06/18/22 History release sertraline 50 mg tablet (Zoloft) 50 mg PO DAILY 06/18/22 History amitriptyline 25 mg tablet 25 mg PO QHS 06/17/2206/18 History insulin glargine 100 unit/mL (3 35 unit (0.35 mL) subc ut QHS #31.5 09/23/23 Unknown Rx mL) subcutaneous pen (Lantus mL Solostar U-100 Insulin) lisinopril 40 mg tablet 40 mg PO QDAY 11/11/23 Unkno wn History insulin pump cartridge,automated #1 ea 02/10/24 Unknow n Rx dose,BT with controller subcutaneous (Omnipod 5 G6 Intro Kit (Gen 5) subcutaneous cartridge with controller) amlodipine 10 mg tablet 10 mg PO DAILY #90 tabs 02/18 08/12 Unknown Rx atorvastatin 20 mg tablet 20 mg PO QHS #90 tabs Unknown Rx blood sugar diagnostic (OneTouch #100 ea 05/02/24 Unkn own Rx Verio test strips) blood-glucose meter (OneTouch #1 ea 05/02/24 Unknown R x Verio Reflect Meter) blood-glucose sensor (FreeStyle #2 ea 08/01/24 Unknown Rx Maikel 2 Plus Sensor device) levothyroxine 25 mcg tablet 25 mcg PO DAILY thyroid #9 0 tabs 08/02/24 Unknown Rx cholecalciferol (vitamin D3) 125 125 mcg PO QDAY #90 c aps 08/31/24 Unknown Rx mcg (5,000 unit) capsule insulin lispro 100 unit/mL 60 unit (0.6 mL) continuous 09/27/24 Unknown Rx subcutaneous solution (Humalog subcutaneous infusion . continuous U-100 Insulin) #54 mL insulin pump cart,auto,BT,G6/L #10 ea 11/21/24 Unknown Rx (Omnipod 5 (G6/Maikel 2 Plus) subcutaneous cartridge) Allergy/AdvReac Type Severity Reaction Status Date / Time No Known Allergies Allergy Verified 08/01/24 14:25 Family History Other Cancer Diabetes Heart disease Surgical History History of bilateral cataract extraction H/O tooth extraction History of left below knee amputation Social History Smoking Status: Current every day smoker tobacco type: cigarettes ROS Review of Systems ROS Unobtainable: due to endotracheal tube and due to mental status Objective Data Objective Data Vital Signs: Vital Signs Last response 3 Temperature 36.6 C 01/07/25 12:00 Temperature Source Core 01/07/25 12:00 Pulse Rate 104 H 01/07/25 12:30 Respiratory Rate 20 H 01/07/25 12:30 Respiratory Effort Mechanically Ventilated 01/07/25 12:37 Respiratory Depth Shallow 01/07/25 12:37 Respiratory Pattern Tachypnea 01/07/25 12:37 Blood Pressure 119/72 01/07/25 12:30 Blood Pressure Mean 87 01/07/25 12:30 Blood Pressure Source Monitor 01/07/25 12:30 Blood Pressure Position Semi-Fowlers 01/07/25 12:30 Blood Pressure Location Right Arm 01/07/25 12:30 Pulse Ox 95 01/07/25 12:30 Oxygen Delivery Method Mechanical Ventilator 01/07/25 12:37 Oxygen Flow Rate (L/min) 15 01/06/25 22:15 Fraction of Inspired Oxygen (FIO2) 75 01/07/25 12:00 I&O: I&O Last 24 Hours 3 01/06/25 01/07/25 01/07/25 23:59 11:59 23:59 Intake Total 2792.78 / 3332.78 3011.92 / 3162.87 150.95 / 3162.87 Output Total 35 / 35 0 / 35 Balance 2792.78 / 3297.78 2976.92 / 3127.87 150.95 / 3127.87 I&O: Total Stay 3 01/06/25 14:10 thru 01/07/25 13:30 Intake Total 5955.65 Output Total 35 Balance 5920.65 Current Meds Ordered / Administered: Current meds ordered / Administered 3 Generic Name Dose Route Start Last Admin Trade Name Patricia PRN Reason Stop Dose Admin Acetaminophen 650 mg 01/06/25 18:55 Acetaminophen 325 Mg Tablet PO Q6H PRN PRN Pain 1-10 Or Fever>100.7 Albuterol/Ipratropium 3 ml 01/07/25 09:00 01/07/25 09:28 Ipratropium/Albuterol Sulfate 3 Ml Ampul.Neb INHALATION 3 ml Q6H.RT PEPITO Administration Atorvastatin Calcium 40 mg 01/06/25 22:00 01/06/25 22:09 Atorvastatin Calcium 40 Mg Tablet PO Not Given QHS PEPITO Chlorhexidine Gluconate 15 ml 01/07/25 22:00 Chlorhexidine 15 Ml PO BID [facility] Chlorhexidine Gluconate 1 each 01/08/25 10:00 Chlorhexidine Gluc 2% Cloth 1 Each [place] TOPICAL DAILY [facility] Cholecalciferol 125 mcg 01/07/25 10:00 01/07/25 10:08 Cholecalciferol (Vit D3) 125 Mcg Capsule (5,000 Units) PO Not Given DAILY PEPITO Heparin Sodium (Porcine) 5,000 unit 01/06/25 22:00 01/07/25 10:52 Heparin Injection (Vial) 5,000 Unit/Ml Vial SC 5,000 unit Q12 PEPITO Administration Dextrose 250 mls @ 999 mls/hr 01/06/25 15:21 Dextrose 10%-Water IV .Q16M PRN Hypoglycemic Protocol Protocol Insulin Human Lispro 100 unit/ 100 mls @ 11.5 mls/hr 01/06/25 15:30 01/07/25 11:55 Sodium Chloride CONT INF 0.02 units/kg/hr .Q8H42M PEPITO 2.8 mls/hr Infusion Protocol 0.1 UNITS/KG/HR Dextrose 250 mls @ 999 mls/hr 01/06/25 18:55 Dextrose 10%-Water IV .Q16M PRN Hypoglycemic Protocol Protocol Norepinephrine Bitartrate 8 mg 250 mls @ 9.375 mls/hr 01/06/25 19:55 01/06/25 22:30 / Sodium Chloride CONT INF Infused .[id number] PEPITO Titration Protocol 5 MCG/MIN Vancomycin IV-PHARMACY TO DOSE 500 mls @ 250 mls/hr 01/06/25 21:14 1 each/ Sodium Chloride IV PRN PRN Rx to Dose Protocol Piperacillin Sod/Tazobactam 50 mls @ 12.5 mls/hr 01/06/25 22:00 01/07/25 12:42 Sod 3.375 gm/ Sodium Chloride IV Infused Q8 PEPITO Infusion Sodium Chloride 250 mls @ 15 mls/hr 01/06/25 21:53 IV .[id number] PRN Saline Flush Sodium Chloride 250 mls @ 15 mls/hr 01/06/25 21:53 IV .[id number] PRN Additional IVPB Infusion Dextrose/Lactated Ringer's 1,000 mls @ 100 mls/hr 01/07/25 02:40 01/07/25 10:08 IV 0 mls/hr .Q10H PEPITO Infusion Vancomycin HCl 750 mg/ Sodium 265 mls @ 250 mls/hr 01/07/25 22:00 Chloride IV Q24H PEPITO Fentanyl 100 mls @ 5 mls/hr 01/07/25 08:15 01/07/25 13:30 CONT INF 200 mcg/hr UD PEPITO 20 mls/hr Titration Protocol 50 MCG/HR Propofol 1,000 mg in 100 mls @ 4.638 mls/hr 01/07/25 08:00 01/07/25 13:00 Diprivan CONT INF 40 mcg/kg/min .Q12H PEPITO 18.6 mls/hr Titration Protocol 10 MCG/KG/MIN Pantoprazole Sodium 40 mg/ 100 mls @ 300 mls/hr 01/07/25 10:00 01/07/25 13:30 Sodium Chloride IV 300 mls/hr Q24 PEPITO Administration Lactated Ringer's 1,000 mls @ 250 mls/hr 01/07/25 09:15 01/07/25 09:58 IV 01/07/25 21:14 250 mls/hr .Q4H PEPITO Administration Levothyroxine Sodium 25 mcg 01/07/25 06:00 01/07/25 05:44 Levothyroxine 25 Mcg Tablet PO Not Given DAILY@0600 PEPITO Melatonin 3 mg 01/06/25 18:55 Melatonin 3 Mg Tablet PO QHS PRN PRN INSOMNIA Methylprednisolone Sodium Succinate 40 mg 01/07/25 08:55 01/07/25 09:51 Methylprednisolone Sod Succ 40 Mg/Ml Vial IV 40 mg Q8 PEPITO Administration Ondansetron HCl 4 mg 01/06/25 18:55 Ondansetron 4 Mg/2 Ml Vial IV Q8H PRN PRN NAUSEA/VOMITING Sodium Chloride 10 - 40 ml 01/06/25 21:53 01/07/25 09:51 0.9% Saline Lock 10 Ml Syringe IV 40 ml UD PRN Administration SALINE FLUSH Vancomycin Protocol 1 lab 01/08/25 20:30 Vancomycin Trough/Random Due 01/08/25 22:30 DAILY [facility] Physical Exam Const General Appearance: intubated and patient mechanically ventilated Orientation / Consciousness: obtunded HEENT normocephalic and head/scalp atraumatic Head and Scalp: normal to inspection Face and Sinus: sinuses nontender External Ear: external ears normal Mouth: endotracheal tube in place and OG tube in place Eyes PERRL and EOMs intact bilaterally Neck full ROM Resp Effort and Inspection: mechanically ventilated Cardio regular rate Lab / Micro Data Attestation: I reviewed the patient's lab results. 01/07/25 06:10 01/07/25 09:36 Labs: Laboratory Results - last 24 hr 01/06/25 14:21: WBC 27.6 H, RBC 4.44 L, Hgb 12.9 L, Hct 39.8 L, MCV 89.6, MCH 29.1, MCHC 32.4, RDW Std Deviation 46.4 H, RDW Coeff of Candace 14.0, Plt Count 234, MPV 11.0, Neut % (Auto) Not Reportable, Absolute Neuts (auto) 25.9 H, Absolute Lymphs (auto) 0.30 L, Total Counted 100, Neutrophils % (Manual) 94 H, L ymphocytes % (Manual) 1 L, Monocytes % (Manual) 4, Eosinophils % (Manual) 1, Platelet Estimate ADEQUATE, RBC Morphology NORM C+C, Sodium 122 L, Potassium 4.8, Chloride 75 L, Carbon Dioxide 4.2 L*, Anion Gap TNP, BUN 77 H, Creatinine 2.52 H, Estim Creat Clear Calc 43.86 L, Est GFR (MDRD) Non-Af 30 L, B UN/Creatinine Ratio 30.5 H, Glucose 788 H*, Lactic Acid 2.6 H*, Calcium 8.6, M agnesium 2.6 H, Total Bilirubin 0.21, AST 164 H, ALT 61 H, Alkaline Phosphatase 132 H, Total Protein 6.9, Albumin 4.3, Globulin 2.6, Albumin/Globulin Ratio 1.6, Lipase 74, b-Hydroxybutyric mmol/L 12.0 H, Ethyl Alcohol < 10.1 01/06/25 16:12: Urine Color Yellow, Urine Clarity Sl. Cloudy, Urine pH 5.0, Ur Specific [place] 1.025, Urine Protein 30 H, Urine Glucose (UA) 1000 H, Urine Ketones 15 H, Urine Occult Blood 250 H, Urine Nitrite Negative, Urine Bilirubin Negative, Urine Urobilinogen Normal, Ur Leukocyte Esterase Negative, Urine RBC 5-10 SEEN, Urine WBC 0-5 SEEN, Ur Squamous Epith Cells 0 SEEN, Urine Bacteria 1+, Urine Mucus 0 SEEN, Urine Opiates Screen NEGATIVE, U Buprenorphine Qual NEGATIVE, Ur Oxycodone Screen NEGATIVE, Urine Methadone Screen NEGATIVE, Urine Fentanyl Screen NEGATIVE, Ur Barbiturates Screen NEGATIVE, Ur Phencyclidine Scrn NEGATIVE, Ur Amphetamines Screen NEGATIVE, U Benzodiazepines Scrn NEGATIVE, Urine Cocaine Screen NEGATIVE, U Cannabinoids Screen PRESUMPTIVE POSITIVE 01/06/25 16:46: POC Glucose > 500 H* 01/06/25 17:54: POC Glucose > 500 H* 01/06/25 18:04: Sodium 129 L, Potassium 4.0, Chloride 97 L, Carbon Dioxide < 2.0 L*, Anion Gap UNABLE TO CALCULATE L, BUN 63 H, Creatinine 1.93 H, Estim Creat Clear Calc 47.28 L, Est GFR (MDRD) Non-Af 42 L, BUN/Creatinine Ratio 32.8 H, Glucose Cancelled 01/06/25 18:04: Glucose 573 H*, Calcium 5.6 L* 01/06/25 18:50: POC Glucose > 500 H* 01/06/25 19:56: POC Glucose 446 H 01/06/25 20:37: Lactic Acid 2.2 H* 01/06/25 21:07: POC Glucose 464 H* 01/06/25 22:15: Sodium 131 L, Potassium 4.2, Chloride 92 L, Carbon Dioxide 6.0 L*, Anion Gap 33 H, BUN 69 H, Creatinine 2.30 H, Estim Creat Clear Calc 39.67 L, Est GFR (MDRD) Non-Af 34 L, BUN/Creatinine Ratio 29.8 H, Glucose 343 H, H emoglobin A1c 10.7 H, Calcium 7.2 L 01/06/25 22:22: POC Glucose 389 H 01/06/25 23:12: POC Glucose 333 H 01/07/25 01:13: POC Glucose 290 H 01/07/25 02:20: Sodium 133, Potassium 4.3, Chloride 94 L, Carbon Dioxide 12.2 L, Anion Gap 27 H, BUN 77 H, Creatinine 2.92 H, Estim Creat Clear Calc 31.25 L, Est GFR (MDRD) Non-Af 25 L, BUN/Creatinine Ratio 26.3 H, Glucose 260 H, Calcium 7.3 L, POC Glucose 240 H 01/07/25 04:15: POC Glucose 237 H 01/07/25 05:14: POC Glucose 258 H 01/07/25 06:10: WBC 9.2, RBC 4.29 L, Hgb 12.4 L, Hct 36.5 L, MCV 85.1 D, MCH 28.9, MCHC 34.0, RDW Std Deviation 43.3, RDW Coeff of Candace 13.9, Plt Count 158, MPV 11.0, Sodium 134, Potassium 4.6, Chloride 95 L, Carbon Dioxide 16.2 L, Anion Gap 23 H, BUN 83 H, Creatinine 3.46 H, Estim Creat Clear Calc 26.37 L, Est GFR (MDRD) Non-Af 21 L, BUN/Creatinine Ratio 23.9 H, Glucose 468 H*, Calcium 7.3 L 01/07/25 07:43: POC Glucose 262 H 01/07/25 08:39: POC Glucose 263 H 01/07/25 09:36: PT 16.2 H, INR 1.3, Sodium 134, Potassium 4.2, Chloride 97 L, C arbon Dioxide 16.4 L, Anion Gap 21 H, BUN 86 H, Creatinine 3.76 H, Estim Creat Clear Calc 24.27 L, Est GFR (MDRD) Non-Af 19 L, BUN/Creatinine Ratio 22.8 H, G lucose 266 H, Calcium 7.3 L, Phosphorus 7.7 H, Magnesium 2.2, Total Bilirubin 0.46, Direct Bilirubin 0.17, AST 251 H, ALT 74 H, Alkaline Phosphatase 104, T otal Creatine Kinase 6298 H, Total Protein 4.9 L, Albumin 3.1 L, Globulin 1.9 L, Triglycerides 277 H 01/07/25 09:49: POC Glucose 242 H 01/07/25 10:53: POC Glucose 217 H 01/07/25 11:54: POC Glucose 214 H 01/07/25 13:00: POC Glucose 202 H Micro: Microbiology 01/06/25 22:15 Nasal Secretion MRSA (PCR) - Final ABG Data ABG results: ABG 01/06/25 01/06/25 01/07/25 19:53 21:51 05:28 Specimen Type ART ART ART Sample Site L Radial R Radial R Radial pH 6.93 L* 7.09 L* 7.19 L* Bicarbonate Actual 3.3 L 6.8 L 15.1 L Total CO2 < 5 8 16 Base Excess -29 L -23 L -13 L O2 Saturation 88 L 97 95 O2 % 15.0 50.0 70.0 ABG pCO2 15.6 L* 22.3 L 39.5 ABG pO2 86 115 H 92 Nito Test Positive Positive Positive Respiration Rate O2 Delivery Device NRB CPAP CPAP Vent Mode Not entered Not entered Not entered Tidal Volume POC PEEP Crit Call To/Read Back Yes Yes Yes Blood Gas Notified Whom maya Aguirre Blood Gas Notified Time 19:54:47 21:53:25 05:30:23 01/07/25 09:59 Specimen Type ART Sample Site L Radial pH 7.31 L Bicarbonate Actual 16.0 L Total CO2 17 Base Excess -10 L O2 Saturation 90 L O2 % 60.0 ABG pCO2 31.9 L ABG pO2 63 L Nito Test Positive Respiration Rate 16 O2 Delivery Device Adult Vent Vent Mode AC Tidal Volume 400.0 POC PEEP 10 Crit Call To/Read Back Blood Gas Notified Whom Blood Gas Notified Time Imaging Radiology Impression Chest X-Ray 01/06/25 14:35 IMPRESSION: Pulmonary congestion and edema. Pneumonia cannot be excluded. Reading Location: [facility] Brain CT 01/06/25 15:30 IMPRESSION: No evidence of intracranial pathology. Reading Location: [id number] Chest X-Ray 01/07/25 08:30 IMPRESSION: Endotracheal tube 5 cm above the brigida; consider 1 cm advancement. Enteric tube in appropriate position. Diffuse bilateral lung airspace opacities concerning for multifocal pneumonia versus extensive pulmonary edema. Reading Location: [facility] Assessment and Plan . Assessment and plan: #acute respiratory failure - associated with bilateral pulmonary infiltrates - no clinical suggestion of heart failure (rather, suspect volume depletion due to DKA) - most likely culprit would be aspiration event leading to progressive pneumonitis - high risk for progressive lung injury/ ARDS - blood gases reviewed, vent adjusted - low tidal volume ARDS Net settings - follow daily CXR and blood gases #DKA - precipitant unclear but may have been ill prior to DKA - would suspect pneumonia but initial CXR not very suggestive #acute renal failure/ DIYA - serum creatinine has doubled overnight - renal to see - indications for acute dialysis will not likely be evident once metabolic derangements from DKA are better controlled Critical Care Time: 60 minutes The entirety of this encounter was done via Telemedicine
[2025-01-07] MEDS: Propofol 10MG/Ml 1,000 MG/100 ML Bottle 18.6 MG CONT INF ×2 (14:02→18:33)
--- NOTE | 2025-01-07 14:37 | PN.HOSP_ITS ---
Hospitalist Note Chest x-ray reviewed and shows bilateral fluffy infiltrates suggestive of possible ARDS. In view of the chest x-ray, IV fluid discontinued after discussion with the fire protection inspector. He also recommended Lasix 80 mg x 1 dose now and then 60 mg Q6 hourly.vancomycin and Zosyn discontinued because of being nephrotoxic medications. IV cefepime and MRSA nasal screen ordered
[2025-01-07] MEDS: fentaNYL drip 100 ML 20 MCG CONT INF (14:50)
[2025-01-07 14:53] LABS: Anion Gap 22 (5-15); BUN 87 mg/dL (4-19); BUN/Creat Ratio 22.0 RATIO (10-20); Calcium,Total 7.2 mg/dL (7.6-11.0); Carbon Dioxide 15.0 mmol/L (21.0-32.0); Chloride 97 mmol/L (98-108); Estimated Creatinine Clearance 23.22 ml/min (50-250); Glucose 230 mg/dL (70-99); Potassium 3.6 mmol/L (3.3-5.1)
[2025-01-07] MEDS: Cefepime HCl 1 GM in 0.9% Normal Saline (50mL MB+) 50 ML IV (15:00)
--- NOTE | 2025-01-07 15:02 | ECHOD_ITS ---
Reason For Study Reason For Study: Heart Failure Procedure This was a 2D Doppler, Color Flow transthoracic echocardiogram. Techncially difficult study due to arrhythmia and patient status. Patient scanned supine and on vent. Exam performed portable in ICU/CCU. Left Ventricle Normal LV size. The left ventricular ejection fraction is 65 %. Stage 1 diastolic dysfunction. Right Ventricle Normal RV size. Atria Normal left atrium. Normal right atrium. Mitral Valve Normal mitral valve. Tricuspid Valve Normal tricuspid valve. Aortic Valve Trisinus/trileaflet aortic valve. Pulmonic Valve Normal pulmonic valve. Great Vessels Normal aortic root. The pulmonary artery is normal size. Inferior vena cava collapse with respiration. Pericardium/Pleural No pericardial effusion. MMode/2D Measurements & Calculations LVIDd: 4.0 cm IVSd: 1.1 cm Ao root diam: 3.7 cm LVIDs: 2.8 cm LVPWd: 1.0 cm RVDd: 4.4 cm FS: 29.7 % LAV(MOD-sp4): 27.8 ml LVAd ap4: 23.2 cm2 SV(MOD-sp4): 33.8 ml LVLd ap4: 8.3 cm SI(MOD-sp4): 17.3 ml/m2 EDV(MOD-sp4): 52.6 ml EDV(sp4-el): 55.1 ml LVAs ap4: 13.2 cm2 LVLs ap4: 7.8 cm ESV(MOD-sp4): 18.9 ml ESV(sp4-el): 18.8 ml EF(MOD-sp4): 64.2 % EF(sp4-el): 65.9 % SV(sp4-el): 36.3 ml LA A4 area: 12.6 cm2 LA dimension(2D): 3.6 cm RA A4 area: 10.7 cm2 Time Measurements MV dec time: 0.31 sec Doppler Measurements & Calculations MV E max cedrick: 61.9 cm/sec Lat Peak E' Cedrick: 13.7 cm/sec Med Peak E' Cedrick: 7.7 cm/sec MV A max cedrick: 76.7 cm/sec E/E' lat: 4.5 E/E' med: 8.0 MV E/A: 0.81 MV V2 max: 91.2 cm/sec MV P1/2t max cedrick: 68.9 cm/sec Ao V2 max: 121.8 cm/sec MV max P.3 mmHg MV P1/2t: 101.3 msec Ao max P.0 mmHg MV V2 mean: 45.5 cm/sec MV mean P.98 mmHg MV dec slope: 199.3 cm/sec2 MV V2 VTI: 25.3 cm MVA(P1/2t): 2.2 cm2 LV V1 max: 97.4 cm/sec LV V1 max P.8 mmHg ECHO/Echo Complete Interpretation Summary The left ventricular ejection fraction is 65 %. Normal LV size. Stage 1 diastolic dysfunction. Ordering Physician: Shen Reza Performed By: Bret Rodas [facility]
--- NOTE | 2025-01-07 15:17 | EKG12_ITS ---
Test Reason : CHF Blood Pressure : */* mmHG Vent. Rate : 105 BPM Atrial Rate : 105 BPM P-R Int : 170 ms QRS Dur : 90 ms QT Int : 334 ms P-R-T Axes : 47 -14 47 degrees QTcB Int : 441 ms Sinus tachycardia with occasional Premature ventricular complexes Septal infarct (cited on or before 15-Sep-2021) Abnormal ECG Premature atrial complexes Confirmed by Shiv Still [id number]), editor department RAMÍREZ TEAGUE ([id number]) on 01/10/2025 11:44:10 AM Referred By: Confirmed By: Shiv Still
[2025-01-07] MEDS: Calcium Gluconate IV 1 GM in 0.9% Normal Saline (100mL Bag) 100 ML IV (16:56)
--- NOTE | 2025-01-07 16:57 | PCM.CONS.C ---
Assessment & Plan Assessment/Plan (1) Acute hypoxic respiratory failure: PLAN: The patient's chest x-ray is not consistent with pulmonary edema in my opinion. The costophrenic angles are sharp and there is no significant infiltrate in the right upper lobe it seems to be concentrated in the right middle lobe and the entire left lung. Given the patient's history of aspiration it appears this is more likely to be an aspiration pneumonitis or pneumonia than pulmonary edema. The patient has had essentially no urine output over the last 24 hours and he is +7 L. I do feel that the difficulty with oxygenating the patient is probably related to his infiltrative issues in the lungs. This is being managed by the associate broker. Currently the patient is on 10 of PEEP and 60% FiO2. The patient is more likely to be intravascularly depleted given his DKA. His DKA is responding he is still acidotic at 7.31 as of 1600 hrs. His glucose is coming down on the insulin drip and his potassium is down to 3.6. He is requiring pressors for maintenance of his blood pressure and he is appropriately tachycardic with a sinus tachycardia. A BNP is pending at this time. This will help us if it is normal for his age. If it is elevated it really does not help given his acute renal failure. It is likely the patient has coronary disease given his peripheral vascular disease, his hypertension, his tobacco use, and his type 1 diabetes. Will obtain an echocardiogram to define his LV function. At this point in time I would err on the side of the patient being intravascularly volume depleted. I do not feel that IV diuretics are indicated from a cardiovascular perspective at this time but will defer to the nephrology team. (2) DIYA (acute kidney injury): PLAN: Patient's creatinine has continued to rise is up to 3.93 this afternoon. (3) DKA (diabetic ketoacidoses): QUALIFIERS: Diabetes mellitus type: type 1 Diabetes mellitus complication detail: with coma Qualified Code(s): E10.11 - Type 1 diabetes mellitus with ketoacidosis with coma PLAN: Patient is intubated and sedated. He is 7 L positive and is on an insulin drip. PLAN: Plan 1. Will obtain a 2D echocardiogram in the next 24 to 48 hours. 2. Recommend continue with current IV fluids with the drips with his antibiotics. 3. From a cardiovascular perspective I do not feel that IV diuretics are indicated. Will defer that to the nephrology team to assist with his renal failure. 4. Continue current supportive care. HPI Consult Data Date of Consult: 01/07/25 HPI Narrative Reason for Consultation: Difficult oxygenation questionable cardiogenic issues HPI Narrative: TORI CANTOR, is a 49 M who presents with alcohol withdrawal and DKA. The patient was an extremis intubated earlier today due to respiratory failure. Postintubation chest x-ray shows a right middle lobe opacities as well as most of the left side of the lung. The costophrenic angles are sharp and discrete in the right upper lobe does not have any significant infiltrative changes. There was a report that the patient possibly aspirated upon his initial presentation and potentially at the time of intubation. The nursing staff reports that the patient has no frothy pulmonary edema looking secretions. He has very thick mucus when they suctioned him. The patient does have a history of peripheral vascular disease he is status post left BKA with a slow to heal wound which is now closed. The patient also has acute renal failure he has minimal urine output since admission. He is positive over 7 L since admission. The patient has not responded to 80 mg IV Lasix. Patient also has a history of hypertension and tobacco use. He has a history of type 1 diabetes. He also has a history of chronic hepatitis C. Currently the patient is intubated and sedated. He is on 60% FiO2 and 10 of PEEP. O2 saturation is 96% respiratory rate 16 his pulse was 107 and sinus tach. ECG done this afternoon showed sinus tachycardia with nonspecific ST-T wave changes and was minimally different than his original presenting ECG. BNP is currently pending. 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 Tobacco use disorder Polyneuropathy due to type 1 diabetes mellitus Wound discharge MRSA infection Marijuana use Open wound Thyroid disease Insulin dependent diabetes mellitus Arthritis Uses wheelchair Bladder disease Injury of back Difficulty chewing Dietary restriction Amputation of left lower extremity below knee Type 1 diabetes Current use of insulin Back pain due to injury Stroke Restless legs History of stress test Gastroparesis Vision loss of right eye Vision loss of left eye Hearing loss, left Hearing loss, right Anemia Substance abuse Alcohol abuse Anxiety Depression Hypothyroidism Diabetes Chronic pain Rheumatoid arthritis Osteoporosis Pancreatitis GERD (gastroesophageal reflux disease) Hepatitis Smoker Asthma Chest pain Hypertension Migraines Seizures Charcot foot due to diabetes mellitus Charcot ankle Neuropathy Cellulitis (~09/15/21) Diabetes mellitus Home Medications ?Medication ?Instructions ?Recorded ?Last Taken ?Type gabapentin 300 mg capsule 300 mg PO 4X/DAY nerve pain 08/13/20 06/18/22 History pantoprazole 40 mg tablet,delayed 40 mg PO DAILY gerd 08/13/20 06/18/22 History release sertraline 50 mg tablet (Zoloft) 50 mg PO DAILY 03/05/22 06/18/22 History amitriptyline 25 mg tablet 25 mg PO QHS 06/17/22 06/18/22 History insulin glargine 100 unit/mL (3 35 unit (0.35 mL) subcut QHS #31.5 09/23/23 Unknown Rx mL) subcutaneous pen (Lantus mL Solostar U-100 Insulin) lisinopril 40 mg tablet 40 mg PO QDAY 11/11/23 Unknown History insulin pump cartridge,automated #1 ea 02/10/24 Unknown Rx dose,BT with controller subcutaneous (Omnipod 5 G6 Intro Kit (Gen 5) subcutaneous cartridge with controller) amlodipine 10 mg tablet 10 mg PO DAILY #90 tabs 03/09/24 Unknown Rx atorvastatin 20 mg tablet 20 mg PO QHS #90 tabs 05/02/24 Unknown Rx blood sugar diagnostic (OneTouch #100 ea 05/02/24 Unknown Rx Verio test strips) blood-glucose meter (OneTouch #1 ea 05/02/24 Unknown Rx Verio Reflect Meter) blood-glucose sensor (FreeStyle #2 ea 08/01/24 Unknown Rx Maikel 2 Plus Sensor device) levothyroxine 25 mcg tablet 25 mcg PO DAILY thyroid #90 tabs 08/02/24 Unknown Rx cholecalciferol (vitamin D3) 125 125 mcg PO QDAY #90 caps 08/31/24 Unknown Rx mcg (5,000 unit) capsule insulin lispro 100 unit/mL 60 unit (0.6 mL) continuous 09/27/24 Unknown Rx subcutaneous solution (Humalog subcutaneous infusion .continuous U-100 Insulin) #54 mL insulin pump cart,auto,BT,G6/L #10 ea 11/21/24 Unknown Rx (Omnipod 5 (G6/Maikel 2 Plus) subcutaneous cartridge) Allergy/AdvReac Type Severity Reaction Status Date / Time No Known Allergies Allergy Verified 08/01/24 14:25 Family History Other Cancer Diabetes Heart disease Surgical History History of bilateral cataract extraction H/O tooth extraction History of left below knee amputation Social History Smoking Status: Current every day smoker tobacco type: cigarettes ROS ROS Narrative Patient intubated and sedated. Review of systems not available. Review of Systems ROS Unobtainable: due to endotracheal tube Physical Exam Narrative Patient intubated and sedated HEENT normocephalic Neck no JVD Carotids: Negative for bruit Chest inspection of chest normal Resp Resp Narrative: Patient on ventilatory support. Diminished lung sounds throughout with squeaking rhonchi on the left lung throughout. Cardio Rate: tachycardic Rhythm: regular rhythm Heart Sounds: S1 normal, S2 normal and murmur systolic II/ blowing mid apex; Negative for click or gallop GI soft to palpation Extremity Extremity Narrative: There are multiple areas of healing excoriations along the left ankle and lower extremity. General Extremity: edema right lower extremity trace Neuro Neuro Narrative: Intubated and sedated Risk Stratification Risk Stratification Applicable: No Charges/Coding Visit Charges Inpatient E&M: 94299 Init Hosp L3 Objective Data Vital Signs: Vital Signs Temp Pulse Resp BP Pulse Ox O2 Del Method O2 Flow Rate 97.8 F 107 H 16 119/72 96 Mechanical Ventilator 15 01/07/25 12:00 01/07/25 16:11 01/07/25 16:11 01/07/25 12:30 01/07/25 16:11 01/07/25 12:37 01/06/25 22:15 FiO2 60 01/07/25 16:11 Oxygen Flow Rate (L/min) 15 Oxygen Delivery Method Mechanical Ventilator Weight: 170 lb 6.677 oz Body Mass Index (BMI) 24.4 Intake & Output: Intake and Output for Last 24 Hours 01/05/25 01/06/25 01/07/25 23:59 23:59 23:59 Intake Total 2792.78 / 3332.78 4558.25 / 4558.25 Output Total 35 / 35 Balance 2792.78 / 3297.78 4523.25 / 4523.25 Lab / Micro Data Attestation: I reviewed the patient's lab results. 01/07/25 06:10 01/07/25 14:15 Labs: Laboratory Results - last 24 hr 01/06/25 16:12: Urine Color Yellow, Urine Clarity Sl. Cloudy, Urine pH 5.0, Ur Specific [place] 1.025, Urine Protein 30 H, Urine Glucose (UA) 1000 H, Urine Ketones 15 H, Urine Occult Blood 250 H, Urine Nitrite Negative, Urine Bilirubin Negative, Urine Urobilinogen Normal, Ur Leukocyte Esterase Negative, Urine RBC 5-10 SEEN, Urine WBC 0-5 SEEN, Ur Squamous Epith Cells 0 SEEN, Urine Bacteria 1+, Urine Mucus 0 SEEN, Urine Opiates Screen NEGATIVE, U Buprenorphine Qual NEGATIVE, Ur Oxycodone Screen NEGATIVE, Urine Methadone Screen NEGATIVE, Urine Fentanyl Screen NEGATIVE, Ur Barbiturates Screen NEGATIVE, Ur Phencyclidine Scrn NEGATIVE, Ur Amphetamines Screen NEGATIVE, U Benzodiazepines Scrn NEGATIVE, Urine Cocaine Screen NEGATIVE, U Cannabinoids Screen PRESUMPTIVE POSITIVE 01/06/25 16:46: POC Glucose > 500 H* 01/06/25 17:54: POC Glucose > 500 H* 01/06/25 18:04: Sodium 129 L, Potassium 4.0, Chloride 97 L, Carbon Dioxide < 2.0 L*, Anion Gap UNABLE TO CALCULATE L, BUN 63 H, Creatinine 1.93 H, Estim Creat Clear Calc 47.28 L, Est GFR (MDRD) Non-Af 42 L, BUN/Creatinine Ratio 32.8 H, Glucose Cancelled 01/06/25 18:04: Glucose 573 H*, Calcium 5.6 L* 01/06/25 18:50: POC Glucose > 500 H* 01/06/25 19:56: POC Glucose 446 H 01/06/25 20:37: Lactic Acid 2.2 H* 01/06/25 21:07: POC Glucose 464 H* 01/06/25 22:15: Sodium 131 L, Potassium 4.2, Chloride 92 L, Carbon Dioxide 6.0 L*, Anion Gap 33 H, BUN 69 H, Creatinine 2.30 H, Estim Creat Clear Calc 39.67 L, Est GFR (MDRD) Non-Af 34 L, BUN/Creatinine Ratio 29.8 H, Glucose 343 H, Hemoglobin A1c 10.7 H, Calcium 7.2 L 01/06/25 22:22: POC Glucose 389 H 01/06/25 23:12: POC Glucose 333 H 01/07/25 01:13: POC Glucose 290 H 01/07/25 02:20: Sodium 133, Potassium 4.3, Chloride 94 L, Carbon Dioxide 12.2 L, Anion Gap 27 H, BUN 77 H, Creatinine 2.92 H, Estim Creat Clear Calc 31.25 L, Est GFR (MDRD) Non-Af 25 L, BUN/Creatinine Ratio 26.3 H, Glucose 260 H, Calcium 7.3 L, POC Glucose 240 H 01/07/25 04:15: POC Glucose 237 H 01/07/25 05:14: POC Glucose 258 H 01/07/25 06:10: WBC 9.2, RBC 4.29 L, Hgb 12.4 L, Hct 36.5 L, MCV 85.1 D, MCH 28.9, MCHC 34.0, RDW Std Deviation 43.3, RDW Coeff of Candace 13.9, Plt Count 158, MPV 11.0, Sodium 134, Potassium 4.6, Chloride 95 L, Carbon Dioxide 16.2 L, Anion Gap 23 H, BUN 83 H, Creatinine 3.46 H, Estim Creat Clear Calc 26.37 L, Est GFR (MDRD) Non-Af 21 L, BUN/Creatinine Ratio 23.9 H, Glucose 468 H*, Calcium 7.3 L 01/07/25 07:43: POC Glucose 262 H 01/07/25 08:39: POC Glucose 263 H 01/07/25 09:36: PT 16.2 H, INR 1.3, Sodium 134, Potassium 4.2, Chloride 97 L, Carbon Dioxide 16.4 L, Anion Gap 21 H, BUN 86 H, Creatinine 3.76 H, Estim Creat Clear Calc 24.27 L, Est GFR (MDRD) Non-Af 19 L, BUN/Creatinine Ratio 22.8 H, Glucose 266 H, Calcium 7.3 L, Phosphorus 7.7 H, Magnesium 2.2, Total Bilirubin 0.46, Direct Bilirubin 0.17, AST 251 H, ALT 74 H, Alkaline Phosphatase 104, Total Creatine Kinase 6298 H, Total Protein 4.9 L, Albumin 3.1 L, Globulin 1.9 L, Triglycerides 277 H 06/21/25 09:49: POC Glucose 242 H 01/07/25 10:53: POC Glucose 217 H 01/07/25 11:54: POC Glucose 214 H 01/07/25 13:00: POC Glucose 202 H 01/07/25 14:01: POC Glucose 193 H 01/07/25 14:15: Sodium 134, Potassium 3.6, Chloride 97 L, Carbon Dioxide 15.0 L, Anion Gap 22 H, BUN 87 H, Creatinine 3.93 H, Estim Creat Clear Calc 23.22 L, Est GFR (MDRD) Non-Af 18 L, BUN/Creatinine Ratio 22.0 H, Glucose 230 H, Calcium 7.2 L 01/07/25 15:07: POC Glucose 192 H 01/07/25 16:10: POC Glucose 227 H Micro: Microbiology 01/07/25 09:32 Mucosa - Nasopharyngeal Respiratory Panel (PCR) - Final 01/06/25 22:15 Nasal Secretion MRSA (PCR) - Final ABG Data ABG results: ABG 01/06/25 01/06/25 01/07/25 19:53 21:51 05:28 Specimen Type ART ART ART Sample Site L Radial R Radial R Radial pH 6.93 L* 7.09 L* 7.19 L* Bicarbonate Actual 3.3 L 6.8 L 15.1 L Total CO2 < 5 8 16 Base Excess -29 L -23 L -13 L O2 Saturation 88 L 97 95 O2 % 15.0 50.0 70.0 ABG pCO2 15.6 L* 22.3 L 39.5 ABG pO2 86 115 H 92 Nito Test Positive Positive Positive Respiration Rate O2 Delivery Device NRB CPAP CPAP Vent Mode Not entered Not entered Not entered Tidal Volume POC PEEP Crit Call To/Read Back Yes Yes Yes Blood Gas Notified Whom maya Aguirre Blood Gas Notified Time 19:54:47 21:53:25 05:30:23 01/07/25 09:59 Specimen Type ART Sample Site L Radial pH 7.31 L Bicarbonate Actual 16.0 L Total CO2 17 Base Excess -10 L O2 Saturation 90 L O2 % 60.0 ABG pCO2 31.9 L ABG pO2 63 L Nito Test Positive Respiration Rate 16 O2 Delivery Device Adult Vent Vent Mode AC Tidal Volume 400.0 POC PEEP 10 Crit Call To/Read Back Blood Gas Notified Whom Blood Gas Notified Time Rhythm Strip Rhythm Strip: Sinus Tach Rate: 111 Cardiology Labs/Tests 01/06/25 16:12: Urine Color Yellow, Urine Clarity Sl. Cloudy, Urine pH 5.0, Ur Specific [place] 1.025, Urine Protein 30 H, Urine Glucose (UA) 1000 H, Urine Ketones 15 H, Urine Occult Blood 250 H, Urine Nitrite Negative, Urine Bilirubin Negative, Urine Urobilinogen Normal, Ur Leukocyte Esterase Negative, Urine RBC 5-10 SEEN, Urine WBC 0-5 SEEN 01/06/25 18:04: Sodium 129 L, Potassium 4.0, Chloride 97 L, Carbon Dioxide < 2.0 L*, Anion Gap UNABLE TO CALCULATE L, BUN 63 H, Creatinine 1.93 H, Est GFR (MDRD) Non-Af 42 L, BUN/Creatinine Ratio 32.8 H, Glucose Cancelled 01/06/25 18:04: Glucose 573 H*, Calcium 5.6 L* 01/06/25 19:53: pH 6.93 L*, Bicarbonate Actual 3.3 L, Base Excess -29 L, O2 Saturation 88 L, ABG pCO2 15.6 L*, ABG pO2 86, Nito Test Positive 01/06/25 20:37: Lactic Acid 2.2 H* 01/06/25 21:51: pH 7.09 L*, Bicarbonate Actual 6.8 L, Base Excess -23 L, O2 Saturation 97, ABG pCO2 22.3 L, ABG pO2 115 H, Nito Test Positive 01/06/25 22:15: Sodium 131 L, Potassium 4.2, Chloride 92 L, Carbon Dioxide 6.0 L*, Anion Gap 33 H, BUN 69 H, Creatinine 2.30 H, Est GFR (MDRD) Non-Af 34 L, BUN/Creatinine Ratio 29.8 H, Glucose 343 H, Hemoglobin A1c 10.7 H, Calcium 7.2 L 01/07/25 02:20: Sodium 133, Potassium 4.3, Chloride 94 L, Carbon Dioxide 12.2 L, Anion Gap 27 H, BUN 77 H, Creatinine 2.92 H, Est GFR (MDRD) Non-Af 25 L, BUN/Creatinine Ratio 26.3 H, Glucose 260 H, Calcium 7.3 L 01/07/25 05:28: pH 7.19 L*, Bicarbonate Actual 15.1 L, Base Excess -13 L, O2 Saturation 95, ABG pCO2 39.5, ABG pO2 92, Nito Test Positive 01/07/25 06:10: WBC 9.2, RBC 4.29 L, Hgb 12.4 L, Hct 36.5 L, MCV 85.1 D, MCH 28.9, MCHC 34.0, Plt Count 158, MPV 11.0, Sodium 134, Potassium 4.6, Chloride 95 L, Carbon Dioxide 16.2 L, Anion Gap 23 H, BUN 83 H, Creatinine 3.46 H, Est GFR (MDRD) Non-Af 21 L, BUN/Creatinine Ratio 23.9 H, Glucose 468 H*, Calcium 7.3 L 01/07/25 09:36: PT 16.2 H, INR 1.3, Sodium 134, Potassium 4.2, Chloride 97 L, Carbon Dioxide 16.4 L, Anion Gap 21 H, BUN 86 H, Creatinine 3.76 H, Est GFR (MDRD) Non-Af 19 L, BUN/Creatinine Ratio 22.8 H, Glucose 266 H, Calcium 7.3 L, Phosphorus 7.7 H, Magnesium 2.2, Total Bilirubin 0.46, Direct Bilirubin 0.17, Triglycerides 277 H 01/07/25 09:59: pH 7.31 L, Bicarbonate Actual 16.0 L, Base Excess -10 L, O2 Saturation 90 L, ABG pCO2 31.9 L, ABG pO2 63 L, Nito Test Positive 01/07/25 14:15: Sodium 134, Potassium 3.6, Chloride 97 L, Carbon Dioxide 15.0 L, Anion Gap 22 H, BUN 87 H, Creatinine 3.93 H, Est GFR (MDRD) Non-Af 18 L, BUN/Creatinine Ratio 22.0 H, Glucose 230 H, Calcium 7.2 L Rhythm: EKG: ECHO: Stress Test: Cardiac Cath: PCI: CT Surgery: Holter monitor: EPS: PPM: CXR: Chest CT Scan: Radiography Diagnostic Testing: Radiology Impression Abdomen Ultrasound 01/07/25 08:26 IMPRESSION: Liver is enlarged, but liver and other organs surveyed are unremarkable otherwise. Reading [facility] Chest X-Ray 01/07/25 08:30 IMPRESSION: Endotracheal tube 5 cm above the brigida; consider 1 cm advancement. Enteric tube in appropriate position. Diffuse bilateral lung airspace opacities concerning for multifocal pneumonia versus extensive pulmonary edema. Reading Location: [id number]
[2025-01-07 17:44] LABS: Pro- Brain NATRIURETIC PEPTIDE 4087 pg/mL (<=900)
[2025-01-07 18:25] LABS: Anion Gap 21 (5-15); BUN 86 mg/dL (4-19); BUN/Creat Ratio 20.9 RATIO (10-20); Calcium,Total 7.3 mg/dL (7.6-11.0); Carbon Dioxide 14.5 mmol/L (21.0-32.0); Chloride 96 mmol/L (98-108); Estimated Creatinine Clearance 22.26 ml/min (50-250); Glucose 242 mg/dL (70-99); Potassium 3.6 mmol/L (3.3-5.1)
[2025-01-07 19:30] LABS: Creatinine, Urine (random) 22.20 mg/dL (39.00-259.00)
[2025-01-07 19:41] LABS: Microalbumin,Random Urine 1926.0 mg/L (NO RANGE EST.); Protein, Urine (Random) 287.0 mg/dL (0.0-12.0); Protein:Creat Ratio 12928 mg/g CRE (0-200)
[2025-01-07] MEDS: Insulin Lispro 100 UNIT in 0.9% Normal Saline (100mL Bag) 99 ML CONT INF (19:45)
[2025-01-07] MEDS: fentaNYL drip 100 ML 17.5 MCG CONT INF (20:05)
[2025-01-07] MEDS: Chlorhexidine 15 ML PO (21:36)
[2025-01-07 22:39] LABS: Anion Gap 21 (5-15); BUN 91 mg/dL (4-19); BUN/Creat Ratio 20.3 RATIO (10-20); Calcium,Total 7.6 mg/dL (7.6-11.0); Carbon Dioxide 15.1 mmol/L (21.0-32.0); Chloride 98 mmol/L (98-108); Estimated Creatinine Clearance 20.41 ml/min (50-250); Glucose 198 mg/dL (70-99); Potassium 3.7 mmol/L (3.3-5.1)
[2025-01-08] VITALS (36 sets, daily range): BP systolic 85–149; BP diastolic 46–74; PULSE 74–122; RESP 10–21; TEMP 37.4–38.3; O2SAT 92–100; BMI 24.8
[2025-01-08] MEDS: Propofol 10MG/Ml 1,000 MG/100 ML Bottle 13.9 MG CONT INF ×2 (00:44→05:38)
[2025-01-08] MEDS: Acetaminophen 650 MG/20 ML UDC GT ×2 (00:46→10:14)
[2025-01-08 02:24] LABS: Anion Gap 20 (5-15); BUN 91 mg/dL (4-19); BUN/Creat Ratio 19.2 RATIO (10-20); Calcium,Total 7.6 mg/dL (7.6-11.0); Carbon Dioxide 16.5 mmol/L (21.0-32.0); Chloride 98 mmol/L (98-108); Estimated Creatinine Clearance 19.21 ml/min (50-250); Glucose 115 mg/dL (70-99); Potassium 3.6 mmol/L (3.3-5.1)
[2025-01-08] MEDS: fentaNYL drip 100 ML 12.5 MCG CONT INF ×2 (02:54→11:34)
[2025-01-08 07:07] LABS: GGTP 12 IU/L (0-65)
[2025-01-08 07:29] LABS: AST(SGOT) 170 U/L (<=37); Alanine Aminotransfer ALT/SGPT 63 U/L (<=46); Albumin, Serum 3.4 g/dL (3.5-5.0); Alkaline Phosphatase 71 U/L (40-129); Anion Gap 21 (5-15); BUN 91 mg/dL (4-19); BUN/Creat Ratio 18.8 RATIO (10-20); Bilirubin, Direct 0.15 mg/dL (0.00-0.30); Calcium,Total 7.7 mg/dL (7.6-11.0); Carbon Dioxide 15.5 mmol/L (21.0-32.0); Chloride 98 mmol/L (98-108); Estimated Creatinine Clearance 18.81 ml/min (50-250); Globulin 1.7 g/dL (2.2-4.2); Glucose 137 mg/dL (70-99); Potassium 3.6 mmol/L (3.3-5.1)
--- NOTE | 2025-01-08 07:54 | RAD_ITS ---
PROCEDURE: CHEST 1 VIEW (PORTABLE) 01/08/2025 REASON FOR EXAM: SOB TECHNIQUE: Frontal view of the chest. COMPARISON: Chest radiograph 01/07/2025. FINDINGS: Hardware: Endotracheal tube in place approximately 6 cm above the level of the brigida. Gastric tube remains in place with side hole and tip overlying the expected region of the stomach. Right PICC with tip overlying the right atrium. Heart: The heart size is normal. Lungs: Stable to slight interval improvement in the diffuse bilateral airspace opacities. No pleural effusion or pneumothorax. Bones: Degenerative changes are identified within the thoracic spine. RAD/Chest 1 View (Portable) IMPRESSION: 1. Stable to slight improvement in the diffuse bilateral lung opacities, which may represent multifocal pneumonia or extensive pulmonary edema. 2. Support devices as described. Reading Location: [id number]
[2025-01-08] MEDS: 0.9% Saline Lock 10 ML Syringe IV ×8 (08:16→21:34)
--- NOTE | 2025-01-08 08:22 | PN.HOSP_ITS ---
Reason for Visit Reason for Visit: Diagnoses Type 1 diabetes mellitus with ketoacidosis with coma (01/06/25) Type 2 diabetes mellitus with ketoacidosis without coma (01/06/25) Acute respiratory failure with hypoxia (01/06/25) Acute kidney failure, unspecified (01/06/25) Objective Data Objective Data Vital Signs: Vital Signs Temp Pulse Resp BP Pulse Ox O2 Del Method O2 Flow Rate 99.4 F H 112 H 17 103/62 93 Mechanical Ventilator 15 01/08/25 02:00 01/08/25 07:10 01/08/25 07:10 01/08/25 07:00 01/08/25 07:10 01/08/25 07:00 01/06/25 22:15 FiO2 40 01/08/25 07:00 Oxygen Flow Rate (L/min) 15 Oxygen Delivery Method Mechanical Ventilator Weight: 173 lb 1.006 oz Body Mass Index (BMI) 24.8 Intake & Output: Intake and Output for Last 24 Hours 01/06/25 01/07/25 01/08/25 23:59 23:59 23:59 Intake Total 2792.78 / 3332.78 5067.07 / 5148.47 383.67 / 383.67 Output Total 35 / 35 300 / 300 Balance 2792.78 / 3297.78 5032.07 / 5113.47 83.67 / 83.67 Lab / Micro Data 01/07/25 06:10 01/08/25 06:05 Labs: Laboratory Results - last 24 hr 01/07/25 07:43: POC Glucose 262 H 01/07/25 08:39: POC Glucose 263 H 01/07/25 09:36: PT 16.2 H, INR 1.3, Sodium 134, Potassium 4.2, Chloride 97 L, C arbon Dioxide 16.4 L, Anion Gap 21 H, BUN 86 H, Creatinine 3.76 H, Estim Creat Clear Calc 24.27 L, Est GFR (MDRD) Non-Af 19 L, BUN/Creatinine Ratio 22.8 H, G lucose 266 H, Calcium 7.3 L, Phosphorus 7.7 H, Magnesium 2.2, Total Bilirubin 0.46, Direct Bilirubin 0.17, GGT 12, AST 251 H, ALT 74 H, Alkaline Phosphatase 104, Total Creatine Kinase 6298 H, Total Protein 4.9 L, Albumin 3.1 L, Globulin 1.9 L, Triglycerides 277 H 01/07/25 09:49: POC Glucose 242 H 01/07/25 10:53: POC Glucose 217 H 01/07/25 11:54: POC Glucose 214 H 01/07/25 13:00: POC Glucose 202 H 01/07/25 14:01: POC Glucose 193 H 01/07/25 14:15: Sodium 134, Potassium 3.6, Chloride 97 L, Carbon Dioxide 15.0 L, Anion Gap 22 H, BUN 87 H, Creatinine 3.93 H, Estim Creat Clear Calc 23.22 L, Est GFR (MDRD) Non-Af 18 L, BUN/Creatinine Ratio 22.0 H, Glucose 230 H, Calcium 7.2 L 01/07/25 15:07: POC Glucose 192 H 01/07/25 16:10: POC Glucose 227 H 01/07/25 16:28: NT pro BNP II 4087 H 01/07/25 17:35: Sodium 132 L, Potassium 3.6, Chloride 96 L, Carbon Dioxide 14.5 L, Anion Gap 21 H, BUN 86 H, Creatinine 4.10 H, Estim Creat Clear Calc 22.26 L, Est GFR (MDRD) Non-Af 17 L, BUN/Creatinine Ratio 20.9 H, Glucose 242 H, Calcium 7.3 L 01/07/25 17:36: POC Glucose 226 H 01/07/25 18:31: POC Glucose 200 H 01/07/25 18:45: Ur Random Microalbumin 1926.0, U Random Total Protein 287.0 H, Ur Random Sodium 101, Urine Creatinine 22.20 L, Protein/Creatinin Ratio 59396 H, Urine Potassium 21.9, Urine Chloride 88 01/07/25 19:37: POC Glucose 193 H 01/07/25 20:33: POC Glucose 206 H 01/07/25 21:25: POC Glucose 190 H 01/07/25 22:00: Sodium 134, Potassium 3.7, Chloride 98, Carbon Dioxide 15.1 L, A nion Gap 21 H, BUN 91 H, Creatinine 4.47 H, Estim Creat Clear Calc 20.41 L, Est GFR (MDRD) Non-Af 15 L, BUN/Creatinine Ratio 20.3 H, Glucose 198 H, Calcium 7.6 01/07/25 22:33: POC Glucose 175 H 01/07/25 23:30: POC Glucose 153 H 01/08/25 00:24: POC Glucose 150 H 01/08/25 01:39: POC Glucose 125 H 01/08/25 01:55: Sodium 134, Potassium 3.6, Chloride 98, Carbon Dioxide 16.5 L, A nion Gap 20 H, BUN 91 H, Creatinine 4.75 H, Estim Creat Clear Calc 19.21 L, Est GFR (MDRD) Non-Af 14 L, BUN/Creatinine Ratio 19.2, Glucose 115 H, Calcium 7.6 01/08/25 02:34: POC Glucose 99 01/08/25 03:52: POC Glucose 96 01/08/25 05:01: POC Glucose 110 H 01/08/25 05:58: POC Glucose 124 H 01/08/25 06:05: Sodium 134, Potassium 3.6, Chloride 98, Carbon Dioxide 15.5 L, A nion Gap 21 H, BUN 91 H, Creatinine 4.85 H, Estim Creat Clear Calc 18.81 L, Est GFR (MDRD) Non-Af 14 L, BUN/Creatinine Ratio 18.8, Glucose 137 H, Calcium 7.7, Total Bilirubin 0.22, Direct Bilirubin 0.15, AST 170 H, ALT 63 H, Alkaline Phosphatase 71, Total Protein 5.1 L, Albumin 3.4 L, Globulin 1.7 L 01/08/25 06:46: POC Glucose 133 H Micro: Microbiology 01/07/25 18:45 Urine Catheter - Brady Legionella Antigen - Final 01/07/25 18:45 Urine Catheter - Brady Streptococcus pneumoniae Antigen (M - Final 01/07/25 16:30 Nasal Secretion MRSA (PCR) - Final 01/07/25 09:32 Mucosa - Nasopharyngeal Respiratory Panel (PCR) - Final 01/06/25 22:15 Nasal Secretion MRSA (PCR) - Final ABG Data ABG results: ABG 01/07/25 09:59 Specimen Type ART Sample Site L Radial pH 7.31 L Bicarbonate Actual 16.0 L Total CO2 17 Base Excess -10 L O2 Saturation 90 L O2 % 60.0 ABG pCO2 31.9 L ABG pO2 63 L Nito Test Positive Respiration Rate 16 O2 Delivery Device Adult Vent Vent Mode AC Tidal Volume 400.0 POC PEEP 10 Radiography Diagnostic Testing: Radiology Impression Abdomen Ultrasound 01/07/25 08:26 IMPRESSION: Liver is enlarged, but liver and other organs surveyed are unremarkable otherwise. Reading Location[facility] Chest X-Ray 01/07/25 08:30 IMPRESSION: Endotracheal tube 5 cm above the brigida; consider 1 cm advancement. Enteric tube in appropriate position. Diffuse bilateral lung airspace opacities concerning for multifocal pneumonia versus extensive pulmonary edema. Reading Location: [id number] Rhythm Strip Rhythm Strip: Sinus Tach Rate: 111 Physical Exam Narrative Seen and examined. Throughout the day yesterday, patient was managed with player manager. Chemical Processing Laborer was consulted. Vent requirement has improved with only 40% FiO2, blood pressure about 110 systolic on vasopressor. Still sinus tachycardia, 112/min. Discussed with the nursing staff regarding overnight events. Patient did not make urine. Physical exam: General: Sedated. HEENT: Atraumatic, Normocephalic. Seated Oral: ET and OG tube Neck: Supple, No JVD, Negative Carotid Bruits Chest wall/Lungs: Air entry diminished in bilateral lung bases. No crepitation/rhonchi Cardiovascular: Sinus tachycardia, soft heart sound, no M/G/R Abdomen: Bowel Sounds sluggish, Soft, Non Tender, Non-Distended : Anuria, Brady catheter, anuria, no urine output. No renal angle tenderness. No suprapubic tenderness. Extremities: No edema, Capillary Refill Less than 3 Seconds. Left BKA. Extremities pale Skin: Multiple scabs in lower extremities Musculoskeletal: No Tenderness to Palpation of Joints or Extremities Neurological: No obvious lateralizing neurological sign, detailed neuroexam not done Psych/Mental Status: Sedated Assessment & Plan Assessment/Plan (1) DKA (diabetic ketoacidoses): QUALIFIERS: Diabetes mellitus type: type 1 Diabetes mellitus complication detail: with coma Qualified Code(s): E10.11 - Type 1 diabetes mellitus with ketoacidosis with coma PLAN: Plan Patient is a 49-year-old male who presented to [facility] ED on 01/06/2025 with altered mental status and hyperglycemia. Patient remained agitated disoriented restless and responded minimally to painful stimuli in ICU throughout the night. 1. DKA with severe high anion gap metabolic acidosis, poorly controlled type 1 diabetes mellitus with diabetic neuropathy: The patient is being admitted in ICU. Labs consistent with high anion gap metabolic acidosis with initial ABG shows 6.93/15.6/86, bicarb 3.3 (less than 5). Initially patient was started on normal saline bolus, then bicarb drip but player manager changed to normal saline. Subsequent ABG shows mild improvement in pH 7.19/pCO2 39.5/92 on CPAP. Patient was intubated intermittently. On propofol and fentanyl. Supervisor Cd Area consulted. 01/08: EEG still high, bicarb about 15 but unreliable. K3.6, NA 134. Discussed with the nursing staff I would like to continue the insulin drip. Patient in shock was initiated on Levophed at 5.3 mics 01/06. Levophed off. Patient was in shock state for some time probably due to hemodynamic shift of fluid/distributive shock. Less likely septic shock 2. DIYA ? Creatinine 2.52, BUN 77 on admit. Baseline creatinine around 0.9. Presume prerenal etiology in setting of DKA as above. Creatinine still going up since admission from 2.52, 1.93-3.46. Certified Lactation Educator consulted. Renal and bladder ultrasound ordered. 01/08: Creatinine increased from 3.46-4.85, not very significant increment in respect to anuria. Patient did not make urine output therefore was expected to go very high. Yesterday, Lasix challenge was given with 80 mg IV 1 dose and then 60 mg x 2 therefore total received 200 mg of IV Lasix. Discussed with the systems engineer and Lasix discontinued. IV albumin 25 g IV every 8 hourly x 3 bags. Will hold off on IV fluid. Ultrasound shows right and left kidney normal size, right kidney cortical thickness 1.8 cm, left 1.4 cm with no hydronephrosis. No calculi both kidneys demonstrate prominent pyramids. 3. Acute metabolic encephalopathy due to DKA and alcohol withdrawal and metabolic acidosis ? Presumed secondary to DKA with severe acidosis as noted above. CT brain negative. Intubated on sedated 3. Acute hypoxic respiratory failure, exact etiology unclear but possible due to poor respiratory excursion/encephalopathy possible pneumonia, cannot maintain airway: Patient was intubated due to hypoxia, cannot maintain airway, vomiting in the ED and possible aspiration: Infectious workup ordered. Patient also has history of smoking every day unclear about the history of COPD. Initially patient was on BiPAP but he could not tolerate therefore intubated as mentioned above. Bronchodilator and IV Solu-Medrol ordered. 01/08: Fortunately, vent setting has improved. Tmax 99.4 Fahrenheit. On 40% FiO2, PEEP 10. Mean airway pressure 12. 4. Concern for pneumonia versus infection of unclear source ? Chest x-ray on admit showed pulmonary vascular congestion and edema but pneumonia could not be excluded. WBC count 27. Infectious workup ordered. Continue empirically with IV vancomycin and Zosyn for now. 6. Hyponatremia ? Sodium 122 on admit. Corrected sodium 133 in setting of severe hyperglycemia. Repeat sodium is 134 therefore hyponatremia corrected 01/08: Sodium normal range. 7. Acute on chronic debility with history of left BKA ? PT/OT/case management consulted. Appreciate therapy recommendations. 8. Possible alcoholic hepatitis: Liver chemistries elevated, albumin 4.3, globulin 2.6, A/G ratio 1.6, AST 164, ALT 61, ALP 134. Lactic acid went up from 2.6-5.6. Right upper quadrant sonogram including spleen ordered 01/08: Liver is enlarged 21.1 cm with echogenicity. No biliary ductal dilatation, normal hepatopetal flow in the main portal vein. Gallbladder unremarkable. CBD 8 mm. Pancreas normal. Spleen normal size 10.4 cm. IVC and aorta patent. No ascites Chronic medical conditions: ? Initial BMI 37 on admit. Repeat weight measurement shows weight 170 pounds, BMI 24.5 kg/m? and therefore no obesity. Actually patient looks mild chronic malnutrition with decreased muscle mass of extremities, chest wall muscles and craniofacial muscles ? History of PAD, hypertension, hyperlipidemia: Hypotensive to the high 80s over 50s on admit. Continue home atorvastatin. Holding home amlodipine and lisinopril. ? Anxiety/depression: Continue home sertraline. ? GERD: Continue home PPI. ? Hypothyroidism: Continue home Synthroid. DVT prophylaxis: Heparin subcu CODE STATUS: Full code, unverified Clinical Impression(s) from Imaging Studies Chest X-Ray 01/06/25 14:35 IMPRESSION: Pulmonary congestion and edema. Pneumonia cannot be excluded. Reading Location: [facility] Brain CT 01/06/25 15:30 IMPRESSION: No evidence of intracranial pathology. Reading Location: [facility] Abdomen Ultrasound 01/07/25 08:26 IMPRESSION: Liver is enlarged, but liver and other organs surveyed are unremarkable otherwise. Reading Location: [facility] Chest X-Ray 01/07/25 08:30 IMPRESSION: Endotracheal tube 5 cm above the brigida; consider 1 cm advancement. Enteric tube in appropriate position. Diffuse bilateral lung airspace opacities concerning for multifocal pneumonia versus extensive pulmonary edema. Reading Location: [id number] Total time of the visit including total time spent in counseling or coordination of care, (more than 50% of the total time, spent in obtaining medical information from nurses and other ancillary care providers ,explaining to the patient about labs, imaging, diagnosis and management of active complex medical conditions), management of acute ICU care including respiratory failure, high anion gap metabolic acidosis, anuria, alcoholic, review of labs and imaging is 60 min Charges/Coding Visit Charges Inpatient E&M: 89923 [facility] Hosp L3
[2025-01-08 08:33] LABS: CPK Total, Creatine Kinase 1747 U/L (24-195)
--- NOTE | 2025-01-08 08:34 | PCM.PN.REN ---
Subjective Subjective No overnight events. Vent settings improved. No urine output. Blood pressures acceptable, has not needed pressors. Objective Data Objective Data Vital Signs: Vital Signs Temp Pulse Resp BP Pulse Ox O2 Del Method O2 Flow Rate 99.4 F H 112 H 17 103/62 93 Mechanical Ventilator 15 01/08/25 02:00 01/08/25 07:10 01/08/25 07:10 01/08/25 07:00 01/08/25 07:10 01/08/25 07:00 01/06/25 22:15 FiO2 40 01/08/25 07:00 Oxygen Flow Rate (L/min) 15 Oxygen Delivery Method Mechanical Ventilator Weight: 78.5 kg Body Mass Index (BMI) 24.8 Intake & Output: Intake and Output for Last 24 Hours 01/06/25 01/07/25 01/08/25 23:59 23:59 23:59 Intake Total 2792.78 / 3332.78 5067.07 / 5148.47 383.67 / 383.67 Output Total 35 / 35 300 / 300 Balance 2792.78 / 3297.78 5032.07 / 5113.47 83.67 / 83.67 Lab / Micro Data 01/07/25 06:10 01/08/25 06:05 Labs: Laboratory Results - last 24 hr 01/07/25 08:39: POC Glucose 263 H 01/07/25 09:36: PT 16.2 H, INR 1.3, Sodium 134, Potassium 4.2, Chloride 97 L, Carbon Dioxide 16.4 L, Anion Gap 21 H, BUN 86 H, Creatinine 3.76 H, Estim Creat Clear Calc 24.27 L, Est GFR (MDRD) Non-Af 19 L, BUN/Creatinine Ratio 22.8 H, Glucose 266 H, Calcium 7.3 L, Phosphorus 7.7 H, Magnesium 2.2, Total Bilirubin 0.46, Direct Bilirubin 0.17, GGT 12, AST 251 H, ALT 74 H, Alkaline Phosphatase 104, Total Creatine Kinase 6298 H, Total Protein 4.9 L, Albumin 3.1 L, Globulin 1.9 L, Triglycerides 277 H 01/07/25 09:49: POC Glucose 242 H 01/07/25 10:53: POC Glucose 217 H 01/07/25 11:54: POC Glucose 214 H 01/07/25 13:00: POC Glucose 202 H 01/07/25 14:01: POC Glucose 193 H 01/07/25 14:15: Sodium 134, Potassium 3.6, Chloride 97 L, Carbon Dioxide 15.0 L, Anion Gap 22 H, BUN 87 H, Creatinine 3.93 H, Estim Creat Clear Calc 23.22 L, Est GFR (MDRD) Non-Af 18 L, BUN/Creatinine Ratio 22.0 H, Glucose 230 H, Calcium 7.2 L 01/07/25 15:07: POC Glucose 192 H 01/07/25 16:10: POC Glucose 227 H 01/07/25 16:28: NT pro BNP II 4087 H 01/07/25 17:35: Sodium 132 L, Potassium 3.6, Chloride 96 L, Carbon Dioxide 14.5 L, Anion Gap 21 H, BUN 86 H, Creatinine 4.10 H, Estim Creat Clear Calc 22.26 L, Est GFR (MDRD) Non-Af 17 L, BUN/Creatinine Ratio 20.9 H, Glucose 242 H, Calcium 7.3 L 01/07/25 17:36: POC Glucose 226 H 01/07/25 18:31: POC Glucose 200 H 01/07/25 18:45: Ur Random Microalbumin 1926.0, U Random Total Protein 287.0 H, Ur Random Sodium 101, Urine Creatinine 22.20 L, Protein/Creatinin Ratio 82446 H, Urine Potassium 21.9, Urine Chloride 88 01/07/25 19:37: POC Glucose 193 H 01/07/25 20:33: POC Glucose 206 H 01/07/25 21:25: POC Glucose 190 H 01/07/25 22:00: Sodium 134, Potassium 3.7, Chloride 98, Carbon Dioxide 15.1 L, Anion Gap 21 H, BUN 91 H, Creatinine 4.47 H, Estim Creat Clear Calc 20.41 L, Est GFR (MDRD) Non-Af 15 L, BUN/Creatinine Ratio 20.3 H, Glucose 198 H, Calcium 7.6 01/07/25 22:33: POC Glucose 175 H 01/07/25 23:30: POC Glucose 153 H 01/08/25 00:24: POC Glucose 150 H 01/08/25 01:39: POC Glucose 125 H 01/08/25 01:55: Sodium 134, Potassium 3.6, Chloride 98, Carbon Dioxide 16.5 L, Anion Gap 20 H, BUN 91 H, Creatinine 4.75 H, Estim Creat Clear Calc 19.21 L, Est GFR (MDRD) Non-Af 14 L, BUN/Creatinine Ratio 19.2, Glucose 115 H, Calcium 7.6, Total Creatine Kinase 1747 H 01/08/25 02:34: POC Glucose 99 01/08/25 03:52: POC Glucose 96 01/08/25 05:01: POC Glucose 110 H 01/08/25 05:58: POC Glucose 124 H 01/08/25 06:05: Sodium 134, Potassium 3.6, Chloride 98, Carbon Dioxide 15.5 L, Anion Gap 21 H, BUN 91 H, Creatinine 4.85 H, Estim Creat Clear Calc 18.81 L, Est GFR (MDRD) Non-Af 14 L, BUN/Creatinine Ratio 18.8, Glucose 137 H, Calcium 7.7, Total Bilirubin 0.22, Direct Bilirubin 0.15, AST 170 H, ALT 63 H, Alkaline Phosphatase 71, Total Protein 5.1 L, Albumin 3.4 L, Globulin 1.7 L 01/08/25 06:46: POC Glucose 133 H Micro: Microbiology 01/07/25 18:45 Urine Catheter - Rbady Legionella Antigen - Final 01/07/25 18:45 Urine Catheter - Brady Streptococcus pneumoniae Antigen (M - Final 01/07/25 16:30 Nasal Secretion MRSA (PCR) - Final 01/07/25 09:32 Mucosa - Nasopharyngeal Respiratory Panel (PCR) - Final 01/06/25 22:15 Nasal Secretion MRSA (PCR) - Final ABG Data ABG results: ABG 01/07/25 09:59 Specimen Type ART Sample Site L Radial pH 7.31 L Bicarbonate Actual 16.0 L Total CO2 17 Base Excess -10 L O2 Saturation 90 L O2 % 60.0 ABG pCO2 31.9 L ABG pO2 63 L Nito Test Positive Respiration Rate 16 O2 Delivery Device Adult Vent Vent Mode AC Tidal Volume 400.0 POC PEEP 10 Radiography Diagnostic Testing: Radiology Impression Abdomen Ultrasound 01/07/25 08:26 IMPRESSION: Liver is enlarged, but liver and other organs surveyed are unremarkable otherwise. Reading Location[facility] Chest X-Ray 06/21/25 08:30 IMPRESSION: Endotracheal tube 5 cm above the brigida; consider 1 cm advancement. Enteric tube in appropriate position. Diffuse bilateral lung airspace opacities concerning for multifocal pneumonia versus extensive pulmonary edema. Reading Location: [facility] Rhythm Strip Rhythm Strip: Sinus Tach Rate: 111 Physical Exam Narrative On ventilator support, no acute distress S1, S2, RRR Diminished breath sounds, no rales or rhonchi Abdomen soft, nondistended, positive bowel sounds No edema, left BKA, no edema to thighs Indwelling Brady with no urine in bag Assessment & Plan Assessment/Plan (1) DIYA (acute kidney injury): (2) Altered mental status: (3) Acute hypoxic respiratory failure: PLAN: Plan This is a 49-year-old male with past medical history significant for diabetes mellitus type 1, hypothyroidism, alcohol abuse presented to the ER yesterday with altered mental status changes, high glucose, admitted for DKA with severe high anion gap metabolic acidosis, started on insulin drip, received multiple liters of IV fluids. Unfortunately patient could not tolerate bipap, respiratory status worsened and patient intubated early this morning. Nephrology consulted in view of elevated creatinine. Creatinine 2.52 on admission -anuric DIYA likely secondary to ATN, hypotension, DKA. Patient has normal baseline creatinine. Creatinine 2.5 to on admission (01/06) and today creatinine 4.85 mg/dL. Potassium and bicarb acceptable. Gave Lasix challenge yesterday to see if urine output would turkey picker. Patient essentially anuric. He has Brady. Abdominal ultrasound no hydronephrosis, no ascites, enlarged liver. Will stop Lasix. Give albumin today. Obtaining repeat chest x-ray this morning. Reviewed cardiology note, feeling patient is intravascularly volume depleted. Blood pressures acceptable, he does not need any IV pressor support at this time. Patient is off IV fluids currently. Patient's vent settings have improved from yesterday. 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 yesterdays CXR concerning for pulmonary congestion/edema but pneumonia not excluded, patient on Zosyn and vanco, will monitor vanco levels given DIYA. Blood cultures pending. Glucose levels improving, patient remains on insulin drip but low dose. Reviewed nephrology plan with Dr. Reza. Assessment and plan reviewed with Dr. James.
[2025-01-08 08:35] LABS: Hematocrit 26.2 % (40-54); Hemoglobin 9.6 g/dL (13.0-16.5); Immature Granulocytes Count 0.020 X10^3/uL (0.0-0.0); Mean Corp Hgb Conc 36.6 g/dL (32-36); Mean Corpuscular Volume 80.9 fL (80-94); Mean Platelet Vol. 11.6 fl (6.2-12.0); NRBC Flagged by Analyzer 0 % (0-5); POSITIVE COUNT YES; POSITIVE DIFFERENTIAL YES; POSITIVE MORPHOLOGY YES; Platelet Count 82 K/mm3 (150-450); RBC Distribution Width CV 14.3 % (11.6-14.6); RBC Distribution Width SD 42.0 fl (35.1-43.9); Red Blood Count 3.24 M/mm3 (4.6-6.2); White Blood Count 8.3 K/mm3 (4.4-11.0)
[2025-01-08 08:40] LABS: Differential Indicated SCAN CRITERIA MET
[2025-01-08] MEDS: Pantoprazole Sodium 40 MG in 0.9% Normal Saline (100mL MB+) 100 ML 300 MG IV (09:58)
[2025-01-08] MEDS: Heparin Injection (Vial) 5,000 UNIT/ML VIAL 5000 UNIT SC ×2 (10:11→21:25)
[2025-01-08] MEDS: Cholecalciferol (Vit D3) 125 MCG CAPSULE (5,000 UNITS) GT (10:13)
--- NOTE | 2025-01-08 10:14 | PN.CARD_ITS ---
Subjective Subjective Patient remains intubated and sedated. His O2 requirements have decreased to 40% and his PEEP is down to 8. His chest x-ray shows some mild improvement in the multiple pulmonary opacities. Patient's renal function continues to deteriorate he has had no urine output. The patient's BNP was 4087 which is consistent with the 8 L positive volume infusion he is received. Objective Data Vital Signs: Vital Signs Temp Pulse Resp BP Pulse Ox O2 Del Method O2 Flow Rate 100.1 F H 114 H 18 134/63 H 97 Mechanical Ventilator 15 01/08/25 07:45 01/08/25 09:05 01/08/25 09:05 01/08/25 07:45 01/08/25 09:05 01/08/25 07:45 01/06/25 22:15 FiO2 40 01/08/25 07:45 Oxygen Flow Rate (L/min) 15 Oxygen Delivery Method Mechanical Ventilator Weight: 173 lb 1.006 oz Body Mass Index (BMI) 24.8 Intake & Output: Intake and Output for Last 24 Hours 01/06/25 01/07/25 01/08/25 23:59 23:59 23:59 Intake Total 2792.78 / 3332.78 5067.07 / 5148.47 419.11 / 419.11 Output Total 35 / 35 300 / 300 Balance 2792.78 / 3297.78 5032.07 / 5113.47 119.11 / 119.11 Lab / Micro Data 01/08/25 08:15 01/08/25 06:05 Labs: Laboratory Results - last 24 hr 01/07/25 09:36: Sodium 134, Potassium 4.2, Chloride 97 L, Carbon Dioxide 16.4 L, Anion Gap 21 H, BUN 86 H, Creatinine 3.76 H, Estim Creat Clear Calc 24.27 L, Est GFR (MDRD) Non-Af 19 L, BUN/Creatinine Ratio 22.8 H, Glucose 266 H, Calcium 7.3 L, Phosphorus 7.7 H, Magnesium 2.2, Total Bilirubin 0.46, Direct Bilirubin 0.17, GGT 12, AST 251 H, ALT 74 H, Alkaline Phosphatase 104, Total Creatine Kinase 6298 H, Total Protein 4.9 L, Albumin 3.1 L, Globulin 1.9 L, Triglycerides 277 H 01/07/25 10:53: POC Glucose 217 H 01/07/25 11:54: POC Glucose 214 H 01/07/25 13:00: POC Glucose 202 H 01/07/25 14:01: POC Glucose 193 H 01/07/25 14:15: Sodium 134, Potassium 3.6, Chloride 97 L, Carbon Dioxide 15.0 L, Anion Gap 22 H, BUN 87 H, Creatinine 3.93 H, Estim Creat Clear Calc 23.22 L, Est GFR (MDRD) Non-Af 18 L, BUN/Creatinine Ratio 22.0 H, Glucose 230 H, Calcium 7.2 L 01/07/25 15:07: POC Glucose 192 H 01/07/25 16:10: POC Glucose 227 H 01/07/25 16:28: NT pro BNP II 4087 H 01/07/25 17:35: Sodium 132 L, Potassium 3.6, Chloride 96 L, Carbon Dioxide 14.5 L, Anion Gap 21 H, BUN 86 H, Creatinine 4.10 H, Estim Creat Clear Calc 22.26 L, Est GFR (MDRD) Non-Af 17 L, BUN/Creatinine Ratio 20.9 H, Glucose 242 H, Calcium 7.3 L 01/07/25 17:36: POC Glucose 226 H 01/07/25 18:31: POC Glucose 200 H 01/07/25 18:45: Ur Random Microalbumin 1926.0, U Random Total Protein 287.0 H, Ur Random Sodium 101, Urine Creatinine 22.20 L, Protein/Creatinin Ratio 76861 H, Urine Potassium 21.9, Urine Chloride 88 01/07/25 19:37: POC Glucose 193 H 01/07/25 20:33: POC Glucose 206 H 01/07/25 21:25: POC Glucose 190 H 01/07/25 22:00: Sodium 134, Potassium 3.7, Chloride 98, Carbon Dioxide 15.1 L, A nion Gap 21 H, BUN 91 H, Creatinine 4.47 H, Estim Creat Clear Calc 20.41 L, Est GFR (MDRD) Non-Af 15 L, BUN/Creatinine Ratio 20.3 H, Glucose 198 H, Calcium 7.6 01/07/25 22:33: POC Glucose 175 H 01/07/25 23:30: POC Glucose 153 H 01/08/25 00:24: POC Glucose 150 H 01/08/25 01:39: POC Glucose 125 H 01/08/25 01:55: Sodium 134, Potassium 3.6, Chloride 98, Carbon Dioxide 16.5 L, A nion Gap 20 H, BUN 91 H, Creatinine 4.75 H, Estim Creat Clear Calc 19.21 L, Est GFR (MDRD) Non-Af 14 L, BUN/Creatinine Ratio 19.2, Glucose 115 H, Calcium 7.6, T otal Creatine Kinase 1747 H 01/08/25 02:34: POC Glucose 99 01/08/25 03:52: POC Glucose 96 01/08/25 05:01: POC Glucose 110 H 01/08/25 05:58: POC Glucose 124 H 01/08/25 06:05: Sodium 134, Potassium 3.6, Chloride 98, Carbon Dioxide 15.5 L, A nion Gap 21 H, BUN 91 H, Creatinine 4.85 H, Estim Creat Clear Calc 18.81 L, Est GFR (MDRD) Non-Af 14 L, BUN/Creatinine Ratio 18.8, Glucose 137 H, Calcium 7.7, Total Bilirubin 0.22, Direct Bilirubin 0.15, AST 170 H, ALT 63 H, Alkaline Phosphatase 71, Total Protein 5.1 L, Albumin 3.4 L, Globulin 1.7 L 01/08/25 06:46: POC Glucose 133 H 01/08/25 08:11: POC Glucose 75 01/08/25 08:15: WBC 8.3, RBC 3.24 L, Hgb 9.6 L, Hct 26.2 L, MCV 80.9, MCH 29.6, MCHC 36.6 H D, RDW Std Deviation 42.0, RDW Coeff of Candace 14.3, Plt Count 82 L, MPV 11.6, Immature Gran % (Auto) 0.200, Neut % (Auto) 94.4 H, Lymph % (Auto) 1.7 L, [place] % (Auto) 3.6, Eos % (Auto) 0.0, Baso % (Auto) 0.1, Absolute Neuts (auto) 7.8 H, Absolute Lymphs (auto) 0.14 L, Nucleated RBC % 0, Differential Comment 01/08/25 09:02: POC Glucose 148 H Micro: Microbiology 01/07/25 18:45 Urine Catheter - Brady Legionella Antigen - Final 01/07/25 18:45 Urine Catheter - Brady Streptococcus pneumoniae Antigen (M - Final 01/07/25 16:30 Nasal Secretion MRSA (PCR) - Final 01/07/25 09:32 Mucosa - Nasopharyngeal Respiratory Panel (PCR) - Final Rhythm Strip Rhythm Strip: Sinus Tach Rate: 105 Cardiology Labs/Tests 01/07/25 09:36: Sodium 134, Potassium 4.2, Chloride 97 L, Carbon Dioxide 16.4 L, Anion Gap 21 H, BUN 86 H, Creatinine 3.76 H, Est GFR (MDRD) Non-Af 19 L, B UN/Creatinine Ratio 22.8 H, Glucose 266 H, Calcium 7.3 L, Phosphorus 7.7 H, Magnesium 2.2, Total Bilirubin 0.46, Direct Bilirubin 0.17, Triglycerides 277 H 01/07/25 14:15: Sodium 134, Potassium 3.6, Chloride 97 L, Carbon Dioxide 15.0 L, Anion Gap 22 H, BUN 87 H, Creatinine 3.93 H, Est GFR (MDRD) Non-Af 18 L, B UN/Creatinine Ratio 22.0 H, Glucose 230 H, Calcium 7.2 L 01/07/25 17:35: Sodium 132 L, Potassium 3.6, Chloride 96 L, Carbon Dioxide 14.5 L, Anion Gap 21 H, BUN 86 H, Creatinine 4.10 H, Est GFR (MDRD) Non-Af 17 L, B UN/Creatinine Ratio 20.9 H, Glucose 242 H, Calcium 7.3 L 01/07/25 22:00: Sodium 134, Potassium 3.7, Chloride 98, Carbon Dioxide 15.1 L, A nion Gap 21 H, BUN 91 H, Creatinine 4.47 H, Est GFR (MDRD) Non-Af 15 L, B UN/Creatinine Ratio 20.3 H, Glucose 198 H, Calcium 7.6 01/08/25 01:55: Sodium 134, Potassium 3.6, Chloride 98, Carbon Dioxide 16.5 L, A nion Gap 20 H, BUN 91 H, Creatinine 4.75 H, Est GFR (MDRD) Non-Af 14 L, BUN/Creatinine Ratio 19.2, Glucose 115 H, Calcium 7.6 01/08/25 06:05: Sodium 134, Potassium 3.6, Chloride 98, Carbon Dioxide 15.5 L, A nion Gap 21 H, BUN 91 H, Creatinine 4.85 H, Est GFR (MDRD) Non-Af 14 L, BUN/Creatinine Ratio 18.8, Glucose 137 H, Calcium 7.7, Total Bilirubin 0.22, Direct Bilirubin 0.15 01/08/25 08:15: WBC 8.3, RBC 3.24 L, Hgb 9.6 L, Hct 26.2 L, MCV 80.9, MCH 29.6, MCHC 36.6 H D, Plt Count 82 L, MPV 11.6, Immature Gran % (Auto) 0.200, Neut % (Auto) 94.4 H, Lymph % (Auto) 1.7 L, [place] % (Auto) 3.6, Eos % (Auto) 0.0, Baso % (Auto) 0.1, Absolute Neuts (auto) 7.8 H, Nucleated RBC % 0 Rhythm: EKG: ECHO: Stress Test: Cardiac Cath: PCI: CT Surgery: Holter monitor: EPS: PPM: CXR: Chest CT Scan: Radiography Diagnostic Testing: Radiology Impression Abdomen Ultrasound 01/07/25 08:26 IMPRESSION: Liver is enlarged, but liver and other organs surveyed are unremarkable otherwise. Reading [facility] Chest X-Ray 01/08/25 07:54 IMPRESSION: 1. Stable to slight improvement in the diffuse bilateral lung opacities, which may represent multifocal pneumonia or extensive pulmonary edema. 2. Support devices as described. Reading Location: [facility] Physical Exam Narrative Intubated and sedated HEENT normocephalic Neck no JVD Resp normal respiratory effort Auscultation: rhonchi throughout Cardio Rate: tachycardic Rhythm: regular rhythm Heart Sounds: S1 normal and S2 normal; Negative for click, gallop or murmur Extremity General Extremity: edema right lower extremity mild Neuro Neuro Narrative: Intubated and sedated Assessment & Plan Assessment/Plan (1) Acute hypoxic respiratory failure: PLAN: Patient's chest x-ray shows some slight improvement in the diffuse opacities which appear to be clinically more consistent with pneumonitis than pulmonary edema. The patient has no significant edema being suctioned from his ET tube. His costophrenic angles are very clear with no evidence of effusions. Oxygen requirements have decreased slightly FiO2 is down to 40% and PEEP down to 8. He still has had no urine output. BNP is elevated at 4087 but this really does not help unless it is normal. He does have the acute renal failure and has received 8 L of fluid replacement. Creatinine has now up to 4.85 with a GFR of 14. 2D echocardiogram will be performed tomorrow. (2) DIYA (acute kidney injury): PLAN: Creatinine is 4.85 with GFR of 14. It appears that the patient's 8 L of fluid are probably primarily being third spaced and some may be starting to come back within the vasculature as there is some slight improvement in his chest x- ray. There is no obvious evidence of pulmonary edema by ET suctioning. Further treatment per the nephrology team and primary service. PLAN: Plan 1. From a cardiovascular standpoint at this point in time would continue supportive care. 2. 2D echocardiogram be performed. 3. Dr. Bryan will be covering the service starting tomorrow morning. Charges/Coding Visit Charges Inpatient E&M: 98396 Subs Hosp L2
[2025-01-08] MEDS: CHLORHEXIDINE GLUC 2% CLOTH 1 EACH TOWELETTE TOPICAL (10:16)
[2025-01-08] MEDS: Chlorhexidine 15 ML PO ×2 (10:16→19:56)
[2025-01-08] MEDS: Albumin Human 25% (100 mL) 25 GM/100 ML BAG IV ×3 (10:46→21:17)
[2025-01-08] MEDS: Propofol 10MG/Ml 1,000 MG/100 ML Bottle 16.2 MG CONT INF (11:48)
--- NOTE | 2025-01-08 12:07 | PCM.PN.TICU ---
Objective Data Objective Data Vital Signs: Vital Signs Last response Temperature 38.1 C H 01/08/25 12:00 Temperature Source Core 01/08/25 12:00 Pulse Rate 111 H 01/08/25 12:00 Pulse Strength Normal (2+) 01/08/25 10:00 Respiratory Rate 16 01/08/25 12:00 Respiratory Effort Mechanically Ventilated 01/08/25 07:30 Respiratory Depth Shallow 01/08/25 04:00 Respiratory Pattern Irregular 01/08/25 11:40 Blood Pressure 101/59 L 01/08/25 12:00 Blood Pressure Mean 73 01/08/25 12:00 Blood Pressure Source Monitor 01/08/25 12:00 Blood Pressure Position Semi-Fowlers 01/08/25 12:00 Blood Pressure Location Left Arm 01/08/25 12:00 Pulse Ox 96 01/08/25 12:00 Oxygen Delivery Method Mechanical Ventilator 01/08/25 12:00 Oxygen Flow Rate (L/min) 15 01/06/25 22:15 Fraction of Inspired Oxygen (FIO2) 35 01/08/25 12:00 I&O: I&O Last 24 Hours 01/07/25 01/08/25 01/08/25 23:59 11:59 23:59 Intake Total 2055.15 / 5148.47 590.72 / 602.58 11.86 / 602.58 Output Total 0 / 35 330 / 330 Balance 2055.15 / 5113.47 260.72 / 272.58 11.86 / 272.58 I&O: Total Stay 01/06/25 14:10 thru 01/08/25 12:04 Intake Total 8462.43 Output Total 365 Balance 8097.43 Current Meds Ordered / Administered: Current meds ordered / Administered Generic Name Dose Route Start Last Admin Trade Name Freq PRN Reason Stop Dose Admin Acetaminophen 650 mg 01/07/25 19:44 01/08/25 10:14 Acetaminophen 650 Mg/20 Ml Udc GT 650 mg Q6H PRN PRN Administration Pain 1-10 Or Fever>100.7 Albuterol/Ipratropium 3 ml 01/07/25 09:00 01/08/25 07:09 Ipratropium/Albuterol Sulfate 3 Ml Ampul.Neb INHALATION 3 ml Q6H.RT PEPITO Administration Chlorhexidine Gluconate 15 ml 01/07/25 22:00 01/08/25 10:16 Chlorhexidine 15 Ml PO 15 ml BID PEPITO Administration Chlorhexidine Gluconate 1 each 01/08/25 10:00 01/08/25 10:16 Chlorhexidine Gluc 2% Cloth 1 Each [place] TOPICAL 1 each DAILY PEPITO Administration Cholecalciferol 125 mcg 01/08/25 10:00 01/08/25 10:13 Cholecalciferol (Vit D3) 125 Mcg Capsule (5,000 Units) GT 125 mcg DAILY PEPITO Administration Furosemide 60 mg 01/08/25 09:30 Furosemide 100 Mg/10 Ml Vial IV 01/09/25 03:31 Q6H PEPITO Protocol Glucagon 1 mg 01/07/25 16:29 Glucagon 1 Mg/Ml Syringe IM X1 PRN Hypoglycemia Protocol Heparin Sodium (Porcine) 5,000 unit 01/06/25 22:00 01/08/25 10:11 Heparin Injection (Vial) 5,000 Unit/Ml Vial SC 5,000 unit Q12 PEPITO Administration Insulin Human Lispro 100 unit/ 100 mls @ 11.5 mls/hr 01/06/25 15:30 01/08/25 12:04 Sodium Chloride CONT INF 0.03 units/kg/hr .Q8H42M PEPITO 3 mls/hr Infusion Protocol 0.1 UNITS/KG/HR Norepinephrine Bitartrate 8 mg 250 mls @ 9.375 mls/hr 01/06/25 19:55 01/07/25 21:47 / Sodium Chloride CONT INF Not Given .[id number] PEPITO Protocol 5 MCG/MIN Sodium Chloride 250 mls @ 15 mls/hr 01/06/25 21:53 IV .[id number] PRN Saline Flush Sodium Chloride 250 mls @ 15 mls/hr 01/06/25 21:53 IV .[id number] PRN Additional IVPB Infusion Fentanyl 100 mls @ 5 mls/hr 01/07/25 08:15 01/08/25 12:00 CONT INF 125 mcg/hr UD PEPITO 12.5 mls/hr Titration Protocol 50 MCG/HR Propofol 1,000 mg in 100 mls @ 4.638 mls/hr 01/07/25 08:00 01/08/25 12:00 Diprivan CONT INF 35 mcg/kg/min .Q12H PEPITO 16.2 mls/hr Titration Protocol 10 MCG/KG/MIN Pantoprazole Sodium 40 mg/ 100 mls @ 300 mls/hr 01/07/25 10:00 01/08/25 10:20 Sodium Chloride IV Infused Q24 PEPITO Infusion Cefepime HCl 1 gm/ Sodium 50 mls @ 100 mls/hr 01/07/25 15:00 01/07/25 15:30 Chloride IV Infused Q24H PEPITO Infusion Dextrose 250 mls @ 0 mls/hr 01/07/25 16:29 Dextrose 10%-Water IV .Q0M PRN HYPOGLYCEMIA Protocol As Directed Albumin Human 25 gm in 100 mls @ 60 mls/hr 01/08/25 09:30 01/08/25 10:46 IV 01/09/25 05:09 60 mls/hr Q6H PEPITO Administration Levothyroxine Sodium 25 mcg 01/08/25 06:00 01/08/25 05:17 Levothyroxine 25 Mcg Tablet GT 25 mcg DAILY@0600 PEPITO Administration Methylprednisolone Sodium Succinate 40 mg 01/07/25 08:55 01/08/25 05:16 Methylprednisolone Sod Succ 40 Mg/Ml Vial IV 40 mg Q8 PEPITO Administration Ondansetron HCl 4 mg 01/06/25 18:55 Ondansetron 4 Mg/2 Ml Vial IV Q8H PRN PRN NAUSEA/VOMITING Sodium Chloride 10 - 40 ml 01/06/25 21:53 01/08/25 10:06 0.9% Saline Lock 10 Ml Syringe IV 10 ml UD PRN Administration SALINE FLUSH Lab / Micro Data Attestation: I reviewed the patient's lab results. 01/08/25 08:15 01/08/25 06:05 Labs: Laboratory Results - last 24 hr 01/07/25 09:36: GGT 12 01/07/25 11:54: POC Glucose 214 H 01/07/25 13:00: POC Glucose 202 H 01/07/25 14:01: POC Glucose 193 H 01/07/25 14:15: Sodium 134, Potassium 3.6, Chloride 97 L, Carbon Dioxide 15.0 L, Anion Gap 22 H, BUN 87 H, Creatinine 3.93 H, Estim Creat Clear Calc 23.22 L, Est GFR (MDRD) Non-Af 18 L, BUN/Creatinine Ratio 22.0 H, Glucose 230 H, Calcium 7.2 L 01/07/25 15:07: POC Glucose 192 H 01/07/25 16:10: POC Glucose 227 H 01/07/25 16:28: NT pro BNP II 4087 H 01/07/25 17:35: Sodium 132 L, Potassium 3.6, Chloride 96 L, Carbon Dioxide 14.5 L, Anion Gap 21 H, BUN 86 H, Creatinine 4.10 H, Estim Creat Clear Calc 22.26 L, Est GFR (MDRD) Non-Af 17 L, BUN/Creatinine Ratio 20.9 H, Glucose 242 H, Calcium 7.3 L 01/07/25 17:36: POC Glucose 226 H 01/07/25 18:31: POC Glucose 200 H 01/07/25 18:45: Ur Random Microalbumin 1926.0, U Random Total Protein 287.0 H, Ur Random Sodium 101, Urine Creatinine 22.20 L, Protein/Creatinin Ratio 71104 H, Urine Potassium 21.9, Urine Chloride 88 01/07/25 19:37: POC Glucose 193 H 01/07/25 20:33: POC Glucose 206 H 01/07/25 21:25: POC Glucose 190 H 01/07/25 22:00: Sodium 134, Potassium 3.7, Chloride 98, Carbon Dioxide 15.1 L, Anion Gap 21 H, BUN 91 H, Creatinine 4.47 H, Estim Creat Clear Calc 20.41 L, Est GFR (MDRD) Non-Af 15 L, BUN/Creatinine Ratio 20.3 H, Glucose 198 H, Calcium 7.6 01/07/25 22:33: POC Glucose 175 H 01/07/25 23:30: POC Glucose 153 H 01/08/25 00:24: POC Glucose 150 H 01/08/25 01:39: POC Glucose 125 H 01/08/25 01:55: Sodium 134, Potassium 3.6, Chloride 98, Carbon Dioxide 16.5 L, Anion Gap 20 H, BUN 91 H, Creatinine 4.75 H, Estim Creat Clear Calc 19.21 L, Est GFR (MDRD) Non-Af 14 L, BUN/Creatinine Ratio 19.2, Glucose 115 H, Calcium 7.6, Total Creatine Kinase 1747 H 01/08/25 02:34: POC Glucose 99 01/08/25 03:52: POC Glucose 96 01/08/25 05:01: POC Glucose 110 H 01/08/25 05:58: POC Glucose 124 H 01/08/25 06:05: Sodium 134, Potassium 3.6, Chloride 98, Carbon Dioxide 15.5 L, Anion Gap 21 H, BUN 91 H, Creatinine 4.85 H, Estim Creat Clear Calc 18.81 L, Est GFR (MDRD) Non-Af 14 L, BUN/Creatinine Ratio 18.8, Glucose 137 H, Calcium 7.7, Total Bilirubin 0.22, Direct Bilirubin 0.15, AST 170 H, ALT 63 H, Alkaline Phosphatase 71, Total Protein 5.1 L, Albumin 3.4 L, Globulin 1.7 L 01/08/25 06:46: POC Glucose 133 H 01/08/25 08:11: POC Glucose 75 01/08/25 08:15: WBC 8.3, RBC 3.24 L, Hgb 9.6 L, Hct 26.2 L, MCV 80.9, MCH 29.6, MCHC 36.6 H D, RDW Std Deviation 42.0, RDW Coeff of Candace 14.3, Plt Count 82 L, MPV 11.6, Immature Gran % (Auto) 0.200, Neut % (Auto) 94.4 H, Lymph % (Auto) 1.7 L, [place] % (Auto) 3.6, Eos % (Auto) 0.0, Baso % (Auto) 0.1, Absolute Neuts (auto) 7.8 H, Absolute Lymphs (auto) 0.14 L, Nucleated RBC % 0, Differential Comment 01/08/25 09:02: POC Glucose 148 H 01/08/25 10:06: POC Glucose 154 H Micro: Microbiology 01/07/25 18:45 Urine Catheter - Brady Legionella Antigen - Final 01/07/25 18:45 Urine Catheter - Brady Streptococcus pneumoniae Antigen (M - Final 01/07/25 16:30 Nasal Secretion MRSA (PCR) - Final 01/07/25 09:32 Mucosa - Nasopharyngeal Respiratory Panel (PCR) - Final ABG Data Attestation: I personally reviewed and interpreted this ABG as follows: Rhythm Strip Rhythm Strip: Sinus Tach Rate: 105 Imaging Radiology Impression Abdomen Ultrasound 01/07/25 08:26 IMPRESSION: Liver is enlarged, but liver and other organs surveyed are unremarkable otherwise. Reading Location: [facility] Chest X-Ray 01/08/25 07:54 IMPRESSION: 1. Stable to slight improvement in the diffuse bilateral lung opacities, which may represent multifocal pneumonia or extensive pulmonary edema. 2. Support devices as described. Reading Location: [id number] Assessment and Plan . Assessment and plan: #acute respiratory failure - associated with bilateral pulmonary infiltrates with upper lobe predominance but perihilar regions spared - BNP ~ 4k but low clinical suggestion of heart failure given DKA - DDx include pulmonary edema, aspiration event, ARDS - blood gases reviewed, vent adjusted - continue VC+ mode AC vent for now; still targeting low tidal volume/ ARDSNet settings - follow daily CXR and blood gases - echo has been ordered #DKA - precipitant unclear - AG remains elevated ~ 20, still on insulin drip - possible that ongoing pulmonary process is driving the ketoacidosis? 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 - no indications for acute dialysis currently Critical Care Time: 50 minutes The entirety of this encounter was done via Telemedicine Physical Exam Const no apparent distress General Appearance: intubated and patient mechanically ventilated HEENT normocephalic Eyes PERRL and EOMs intact bilaterally Neck full ROM Chest inspection of chest normal Resp normal respiratory effort Effort and Inspection: mechanically ventilated Cardio regular rate GI normal to inspection, nondistended, normoactive bowel sounds Extremity normal to inspection Neuro Sensorium / Orientation: sedated on vent Subjective Subjective Ventilator dyssynchrony noted yesterday- switched to VC+_ mode with some improvement last night. Remains fully supported on same MV. Smooth interface with vent now, on sedation.
[2025-01-08] MEDS: 0.9% Normal Saline (250mL Bag) 250 ML 15 ML IV (14:06)
[2025-01-08] MEDS: Cefepime HCl 1 GM in 0.9% Normal Saline (50mL MB+) 50 ML IV (14:07)
[2025-01-08] MEDS: Propofol 10MG/Ml 1,000 MG/100 ML Bottle 18.6 MG CONT INF ×2 (16:45→22:17)
[2025-01-08 17:24] LABS: Anion Gap 22 (5-15); BUN 93 mg/dL (4-19); BUN/Creat Ratio 17.5 RATIO (10-20); Calcium,Total 7.8 mg/dL (7.6-11.0); Carbon Dioxide 15.5 mmol/L (21.0-32.0); Chloride 96 mmol/L (98-108); Estimated Creatinine Clearance 17.15 ml/min (50-250); Glucose 114 mg/dL (70-99); Potassium 3.4 mmol/L (3.3-5.1)
[2025-01-08] MEDS: fentaNYL drip 100 ML 15 MCG CONT INF (19:30)
[2025-01-08] MEDS: Insulin Glargine-YFGN 100 UNIT/ML Pen 20 UNIT SC (20:50)
[2025-01-09] VITALS (33 sets, daily range): BP systolic 88–145; BP diastolic 56–83; PULSE 78–116; RESP 15–20; TEMP 37.6–38.2; O2SAT 93–99; BMI 23.1
[2025-01-09] MEDS: Propofol 10MG/Ml 1,000 MG/100 ML Bottle 20.9 MG CONT INF (01:54)
[2025-01-09] MEDS: fentaNYL drip 100 ML 15 MCG CONT INF ×3 (02:51→17:40)
[2025-01-09] MEDS: Propofol 10MG/Ml 1,000 MG/100 ML Bottle 23.2 MG CONT INF ×5 (06:00→22:55)
[2025-01-09] MEDS: Heparin Injection (Vial) 5,000 UNIT/ML VIAL 5000 UNIT SC ×3 (06:14→21:41)
[2025-01-09] MEDS: 0.9% Saline Lock 10 ML Syringe IV ×3 (06:15→21:41)
[2025-01-09 06:26] LABS: Hematocrit 23.7 % (40-54); Hemoglobin 8.4 g/dL (13.0-16.5); Immature Granulocytes Count 0.060 X10^3/uL (0.0-0.0); Mean Corp Hgb Conc 35.4 g/dL (32-36); Mean Corpuscular Volume 82.0 fL (80-94); Mean Platelet Vol. 11.4 fl (6.2-12.0); NRBC Flagged by Analyzer 0 % (0-5); POSITIVE COUNT YES; POSITIVE DIFFERENTIAL YES; POSITIVE MORPHOLOGY YES; Platelet Count 52 K/mm3 (150-450); RBC Distribution Width CV 14.6 % (11.6-14.6); RBC Distribution Width SD 43.3 fl (35.1-43.9); Red Blood Count 2.89 M/mm3 (4.6-6.2); White Blood Count 12.2 K/mm3 (4.4-11.0)
[2025-01-09 06:27] LABS: Differential Indicated SCAN CRITERIA MET
[2025-01-09 06:50] LABS: AST(SGOT) 85 U/L (<=37); Alanine Aminotransfer ALT/SGPT 54 U/L (<=46); Albumin, Serum 4.0 g/dL (3.5-5.0); Alkaline Phosphatase 70 U/L (40-129); Anion Gap 26 (5-15); BUN 90 mg/dL (4-19); BUN/Creat Ratio 18.6 RATIO (10-20); Bilirubin, Direct 0.26 mg/dL (0.00-0.30); Calcium,Total 8.3 mg/dL (7.6-11.0); Carbon Dioxide 16.9 mmol/L (21.0-32.0); Chloride 94 mmol/L (98-108); Differential Comment SCANNED; Estimated Creatinine Clearance 18.89 ml/min (50-250); Globulin 2.1 g/dL (2.2-4.2); Glucose 274 mg/dL (70-99); Potassium 2.7 mmol/L (3.3-5.1)
--- NOTE | 2025-01-09 07:27 | PN.CC_ITS ---
Assessment & Plan Assessment/Plan (1) Acute hypoxic respiratory failure: (2) DKA (diabetic ketoacidoses): QUALIFIERS: Diabetes mellitus complication detail: with coma D iabetes mellitus type: type 1 Qualified Code(s): E10.11 - Type 1 diabetes mellitus with ketoacidosis with coma PLAN: Plan RECOMMENDATIONS: 1. Continue assist-control mode of mechanical ventilation. Continue to wean FiO2 and PEEP as tolerated. 2. Obtain follow-up ABG and chest x-ray. 3. Recheck beta hydroxybutyrate. If elevated, restart continuous insulin infusion. 4. Fentanyl and propofol for sedation. 5. Continue bronchodilators and steroids. 6. Continue empiric antimicrobials. 7. Aggressive electrolyte repletion as indicated. 8. Continue appropriate DVT and GI prophylaxis. IMPRESSIONS: 1. Acute hypoxemic respiratory failure Presumed secondary to underlying pneumonia with concern for inability to compensate for metabolic demands of DKA. The patient will be continued on assist-control mode mechanical ventilation. Repeat ABG will be obtained this morning. Continue to wean FiO2 and PEEP as tolerated. Continue current sedation regimen, with tentative plans to proceed with spontaneous awakening and breathing trials beginning tomorrow morning. Antimicrobials will be continued as ordered. 2. Diabetic ketoacidosis While the patient's insulin infusion was initially discontinued last evening, I am concerned that his anion gap still remains elevated. Therefore, we will plan to recheck his beta hydroxybutyrate level. If elevated, the patient's insulin infusion will be resumed. 3. Acute kidney injury Most likely secondary to ischemic ATN in the setting of DKA and hypotension. Nephrology is currently following to assist with medical management. 4. Hypokalemia Aggressive electrolyte repletion as ordered. 5. Chronic debility/history of hypertension/hyperlipidemia/peripheral arterial disease/GERD/hypothyroidism Complicates care, management, recovery and prognosis. Continue supportive measures as noted above. Continue to hold nutritional support pending resolution of DKA. TIME: 35 minutes of critical care time, independent of procedures, was spent addressing the patient's acute hypoxemic respiratory failure, diabetic ketoacidosis, acute kidney injury, review of all data and collaboration with the care team. Subjective Subjective The patient was seen and examined at the bedside this morning. Events from the last 24 hours have been reviewed. The patient currently has a low-grade fever and remains otherwise hemodynamically stable on assist-control mode of mechanical ventilation with an FiO2 requirement of 35% and PEEP of 5. For reasons that are not entirely clear to me, the patient's continuous insulin infusion was discontinued last evening, despite the fact that he still has an elevated anion gap. White blood cell count is elevated 12,000. Hemoglobin has dropped to 8.4 g/dL. Platelet count is down to 52,000. Potassium is low at 2.7. Anion gap remains elevated at 26 with a creatinine of 4.83. Glucose is elevated at 274. Objective Data Objective Data The patient's most recent lab work, culture data and imaging studies have all been personally reviewed. Blood cultures are pending. Respiratory viral panel was negative. Strep and urine Legionella antigens were negative. Sputum culture is pending. Vital Signs: Vital Signs Temp Pulse Resp BP Pulse Ox O2 Del Method O2 Flow Rate 99.8 F H 113 H 16 127/82 H 94 Mechanical Ventilator 15 01/09/25 07:00 01/09/25 07:00 01/09/25 07:00 01/09/25 07:00 01/09/25 07:00 01/09/25 07:00 01/06/25 22:15 FiO2 35 01/09/25 07:00 Oxygen Flow Rate (L/min) 15 Oxygen Delivery Method Mechanical Ventilator Weight: 161 lb 2.526 oz Body Mass Index (BMI) 23.1 Intake & Output: Intake and Output for Last 24 Hours 01/07/25 01/08/25 01/09/25 23:59 23:59 23:59 Intake Total 5067.07 / 5148.47 1502.99 / 1523.22 298.25 / 298.25 Output Total 35 / 35 4460 / 4460 3675 / 3675 Balance 5032.07 / 5113.47 -2957.01 / -2936.78 -3376.75 / -3376.75 Lab / Micro Data Attestation: I reviewed the patient's lab results. 01/09/25 06:05 01/09/25 06:05 Labs: Laboratory Results - last 24 hr 01/08/25 01:55: Total Creatine Kinase 1747 H 01/08/25 06:05: Sodium 134, Potassium 3.6, Chloride 98, Carbon Dioxide 15.5 L, A nion Gap 21 H, BUN 91 H, Creatinine 4.85 H, Estim Creat Clear Calc 18.81 L, Est GFR (MDRD) Non-Af 14 L, BUN/Creatinine Ratio 18.8, Glucose 137 H, Calcium 7.7, Total Bilirubin 0.22, Direct Bilirubin 0.15, AST 170 H, ALT 63 H, Alkaline Phosphatase 71, Total Protein 5.1 L, Albumin 3.4 L, Globulin 1.7 L 01/08/25 08:11: POC Glucose 75 01/08/25 08:15: WBC 8.3, RBC 3.24 L, Hgb 9.6 L, Hct 26.2 L, MCV 80.9, MCH 29.6, MCHC 36.6 H D, RDW Std Deviation 42.0, RDW Coeff of Candace 14.3, Plt Count 82 L, MPV 11.6, Immature Gran % (Auto) 0.200, Neut % (Auto) 94.4 H, Lymph % (Auto) 1.7 L, [place] % (Auto) 3.6, Eos % (Auto) 0.0, Baso % (Auto) 0.1, Absolute Neuts (auto) 7.8 H, Absolute Lymphs (auto) 0.14 L, Nucleated RBC % 0, Differential Comment 01/08/25 09:02: POC Glucose 148 H 01/08/25 10:06: POC Glucose 154 H 01/08/25 11:03: POC Glucose 148 H 01/08/25 12:02: POC Glucose 142 H 01/08/25 14:00: POC Glucose 108 H 01/08/25 15:00: POC Glucose 105 01/08/25 16:04: POC Glucose 104 01/08/25 16:57: POC Glucose 109 H 01/08/25 17:00: Sodium 133, Potassium 3.4, Chloride 96 L, Carbon Dioxide 15.5 L, Anion Gap 22 H, BUN 93 H, Creatinine 5.32 H, Estim Creat Clear Calc 17.15 L, Est GFR (MDRD) Non-Af 12 L, BUN/Creatinine Ratio 17.5, Glucose 114 H, Calcium 7.8 01/08/25 18:12: POC Glucose 125 H 01/08/25 19:39: POC Glucose 138 H 01/08/25 20:10: POC Glucose 140 H 01/08/25 21:19: POC Glucose 141 H 01/08/25 22:08: POC Glucose 130 H 01/09/25 00:13: POC Glucose 164 H 01/09/25 06:05: WBC 12.2 H, RBC 2.89 L, Hgb 8.4 L, Hct 23.7 L, MCV 82.0, MCH 29.1, MCHC 35.4, RDW Std Deviation 43.3, RDW Coeff of Candace 14.6, Plt Count 52 L, MPV 11.4, Immature Gran % (Auto) 0.500, Neut % (Auto) 93.8 H, Lymph % (Auto) 2.1 L, [place] % (Auto) 3.5, Eos % (Auto) 0.0, Baso % (Auto) 0.1, Absolute Neuts (auto) 11.4 H, Absolute Lymphs (auto) 0.26 L, Nucleated RBC % 0, Differential Comment SCANNED, Platelet Estimate MKD DEC, Sodium 137, Potassium 2.7 L*, Chloride 94 L, Carbon Dioxide 16.9 L, Anion Gap 26 H, BUN 90 H, Creatinine 4.83 H, Estim Creat Clear Calc 18.89 L, Est GFR (MDRD) Non-Af 14 L, BUN/Creatinine Ratio 18.6, G lucose 274 H, Calcium 8.3, Total Bilirubin 0.39, Direct Bilirubin 0.26, AST 85 H , ALT 54 H, Alkaline Phosphatase 70, Total Protein 6.1, Albumin 4.0, Globulin 2.1 L 01/09/25 06:20: POC Glucose 218 H Micro: Microbiology 01/07/25 Unknown Sputum, Induced/Lukens Gram Stain - Final 01/07/25 18:45 Urine Catheter - Brady Legionella Antigen - Final 01/07/25 18:45 Urine Catheter - Brady Streptococcus pneumoniae Antigen (M - Final 01/07/25 16:30 Nasal Secretion MRSA (PCR) - Final 01/07/25 09:32 Mucosa - Nasopharyngeal Respiratory Panel (PCR) - Final 01/06/25 22:15 Nasal Secretion MRSA (PCR) - Final Radiography Diagnostic Testing: Radiology Impression Chest X-Ray 01/08/25 07:54 IMPRESSION: 1. Stable to slight improvement in the diffuse bilateral lung opacities, which may represent multifocal pneumonia or extensive pulmonary edema. 2. Support devices as described. Reading Location: [facility] Rhythm Strip Rhythm Strip: Sinus Tach Rate: 105 Physical Exam Const Constitutional Narrative: Intubated, sedated and mechanically ventilated. No ventilator dyssynchrony noted. HEENT normocephalic and head/scalp atraumatic Mouth: endotracheal tube in place and OG tube in place Eyes PERRL, EOMs intact bilaterally and conjunctivae normal Neck supple General: trachea midline Chest inspection of chest normal Resp Auscultation: diminished lung sounds; Negative for rales, rhonchi or wheezes Cardio regular rate and regular rhythm GI normal to inspection, nondistended, normoactive bowel sounds Extremity Extremity Narrative: Left BKA Neuro Sensorium / Orientation: sedated on vent Charges/Coding Procedures Hospitalists Procedures: 43847 Critical Care 1st Hr
[2025-01-09] MEDS: Potassium Chloride 10mEq/100mL 10 MEQ/100 ML IV.SOLN. 100 MEQ IV BOLUS ×4 (08:02→11:42)
[2025-01-09] MEDS: CHLORHEXIDINE GLUC 2% CLOTH 1 EACH TOWELETTE TOPICAL (08:04)
[2025-01-09] MEDS: Chlorhexidine 15 ML PO ×2 (08:04→21:49)
--- NOTE | 2025-01-09 08:20 | RAD_ITS ---
PROCEDURE: CHEST 1 VIEW (PORTABLE) 01/09/2025 REASON FOR EXAM: RESPIRATORY FAILURE TECHNIQUE: Frontal view of the chest. COMPARISON: January 13, 2025 FINDINGS: There is an ET tube in position with its tip 7 cm above the level of the brigida. There is an enteric tube seen with its tip in the stomach. Heart size is mildly enlarged. Central vascularity appears increased. There is patchy infiltrate with perihilar consolidation in the right and left hilar regions. There is no pneumothorax. There is no effusion. There is no acute bony abnormality. Aortic calcifications are noted. RAD/Chest 1 View (Portable) IMPRESSION: Tubes and lines in position. Heart size is mildly enlarged. Central vascularity appears increased. There is patchy infiltrate with perihilar consolidation in the right and left h ilar regions. Reading Location: [facility]
--- NOTE | 2025-01-09 09:44 | PCM.PN.HOSP ---
Reason for Visit Reason for Visit: Diagnoses Type 1 diabetes mellitus with ketoacidosis with coma (01/06/25) Type 2 diabetes mellitus with ketoacidosis without coma (01/06/25) Acute respiratory failure with hypoxia (01/06/25) Acute kidney failure, unspecified (01/06/25) Subjective Subjective Saw patient at bedside this morning. Patient remained intubated and sedated. He did have nonpurposeful movements noted, otherwise was not following commands. Objective Data Objective Data Vital Signs: Vital Signs Temp Pulse Resp BP Pulse Ox O2 Del Method O2 Flow Rate 100.0 F H 96 16 106/69 96 Mechanical Ventilator 15 01/09/25 08:00 01/09/25 09:00 01/09/25 09:00 01/09/25 09:00 01/09/25 09:00 01/09/25 09:00 01/06/25 22:15 FiO2 35 01/09/25 09:00 Oxygen Flow Rate (L/min) 15 Oxygen Delivery Method Mechanical Ventilator Weight: 73.1 kg Body Mass Index (BMI) 23.1 Intake & Output: Intake and Output for Last 24 Hours 01/07/25 01/08/25 01/09/25 23:59 23:59 23:59 Intake Total 5067.07 / 5148.47 1502.99 / 1523.22 426.51 / 426.51 Output Total 35 4460 / 4460 3675 / 3675 Balance 5032.07 / 5113.47 -2957.01 / -2936.78 -3248.49 / -3248.49 Lab / Micro Data 01/09/25 06:05 01/09/25 06:05 Labs: Laboratory Results - last 24 hr 01/08/25 10:06: POC Glucose 154 H 01/08/25 11:03: POC Glucose 148 H 01/08/25 12:02: POC Glucose 142 H 01/08/25 14:00: POC Glucose 108 H 01/08/25 15:00: POC Glucose 105 01/08/25 16:04: POC Glucose 104 01/08/25 16:57: POC Glucose 109 H 01/08/25 17:00: Sodium 133, Potassium 3.4, Chloride 96 L, Carbon Dioxide 15.5 L, Anion Gap 22 H, BUN 93 H, Creatinine 5.32 H, Estim Creat Clear Calc 17.15 L, Est GFR (MDRD) Non-Af 12 L, BUN/Creatinine Ratio 17.5, Glucose 114 H, Calcium 7.8 01/08/25 18:12: POC Glucose 125 H 01/08/25 19:39: POC Glucose 138 H 01/08/25 20:10: POC Glucose 140 H 01/08/25 21:19: POC Glucose 141 H 01/08/25 22:08: POC Glucose 130 H 01/09/25 00:13: POC Glucose 164 H 01/09/25 06:05: WBC 12.2 H, RBC 2.89 L, Hgb 8.4 L, Hct 23.7 L, MCV 82.0, MCH 29.1, MCHC 35.4, RDW Std Deviation 43.3, RDW Coeff of Candace 14.6, Plt Count 52 L, MPV 11.4, Immature Gran % (Auto) 0.500, Neut % (Auto) 93.8 H, Lymph % (Auto) 2.1 L, [place] % (Auto) 3.5, Eos % (Auto) 0.0, Baso % (Auto) 0.1, Absolute Neuts (auto) 11.4 H, Absolute Lymphs (auto) 0.26 L, Nucleated RBC % 0, Differential Comment SCANNED, Platelet Estimate MKD DEC, Sodium 137, Potassium 2.7 L*, Chloride 94 L, Carbon Dioxide 16.9 L, Anion Gap 26 H, BUN 90 H, Creatinine 4.83 H, Estim Creat Clear Calc 18.89 L, Est GFR (MDRD) Non-Af 14 L, BUN/Creatinine Ratio 18.6, Glucose 274 H, Calcium 8.3, Total Bilirubin 0.39, Direct Bilirubin 0.26, AST 85 H, ALT 54 H, Alkaline Phosphatase 70, Total Protein 6.1, Albumin 4.0, Globulin 2.1 L 01/09/25 06:20: POC Glucose 218 H Micro: Microbiology 01/06/25 16:28 Blood Culture (Wb) - Anticubital Left Blood Culture - Preliminary No growth in 48 hours. 01/06/25 16:41 Blood Culture (Wb) - Right Hand Blood Culture - Preliminary No growth in 48 hours. 01/07/25 Unknown Sputum, Induced/Lukens Gram Stain - Final 01/07/25 18:45 Urine Catheter - Brady Legionella Antigen - Final 01/07/25 18:45 Urine Catheter - Brady Streptococcus pneumoniae Antigen (M - Final 01/07/25 16:30 Nasal Secretion MRSA (PCR) - Final 01/07/25 09:32 Mucosa - Nasopharyngeal Respiratory Panel (PCR) - Final 01/06/25 22:15 Nasal Secretion MRSA (PCR) - Final Radiography Diagnostic Testing: Radiology Impression Chest X-Ray 01/09/25 08:20 IMPRESSION: Tubes and lines in position. Heart size is mildly enlarged. Central vascularity appears increased. There is patchy infiltrate with perihilar consolidation in the right and left hilar regions. Reading [facility] Rhythm Strip Rhythm Strip: Sinus Tach Rate: 105 Physical Exam Const Constitutional Narrative: Intubated and sedated. Nonpurposeful movement noted, not following commands. HEENT head/scalp atraumatic HEENT Narrative: ET tube in place. Neck supple Resp Resp Narrative: Diminished breath sounds bilaterally with crackles noted in mid to lower lung zones. No wheezing noted. Cardio no murmurs Cardio Narrative: Tachycardic, regular rhythm. GI soft to palpation and non-distended Extremity normal to inspection Assessment & Plan Assessment/Plan (1) DKA (diabetic ketoacidoses): QUALIFIERS: Diabetes mellitus type: type 1 Diabetes mellitus complication detail: with coma Qualified Code(s): E10.11 - Type 1 diabetes mellitus with ketoacidosis with coma PLAN: Plan Patient is a 49-year-old male who presented to [facility] ED on 01/06/2025 with altered mental status and hyperglycemia. 1. DKA with persistent anion gap metabolic acidosis, poorly controlled type 1 diabetes mellitus with diabetic neuropathy ? Follows with Dr. Naik in the office and has had poor compliance with insulin pump noted. A1c 10.7% on admit, similar to last office A1c. Labs on admit consistent with DKA. Initial ABG with pH 6.93, pCO2 15, blood glucose 788 and bicarb on BMP was less than 5. Had good improvement on ABG initially with treatment with insulin drip. Course complicated by hypoxic respiratory failure and severe DIYA as noted below. He has now had persistent anion gap metabolic acidosis. Attempted to transition off insulin drip on evening of 01/08, but beta hydroxybutyrate was elevated at 3.1 on 01/09 so patient placed back on insulin drip. Monitor BMP every 12 hours and beta hydroxybutyrate daily; continue insulin drip until anion gap closes and beta hydroxybutyrate is normal. 2. Acute hypoxic respiratory failure ? [employer] following. Had worsening oxygen requirements on admit and chest x-ray showed severe bilateral pulmonary infiltrates. Intubated on morning of 01/07. Per access database developer, differential diagnosis includes pulmonary edema, aspiration event and ARDS. BNP elevated to 4000 but lower clinical suspicion for heart failure; echo completed, read pending. Oxygen requirements improving, stable on 35% FiO2 and 5 of PEEP on 01/09. Continue treatment with IV cefepime, IV steroids and scheduled DuoNebs. Ventilator management and further recommendations per access database developer. 3. Acute metabolic encephalopathy ? [employer] following as above. Presumed multifactorial from DKA with severe metabolic acidosis as well as respiratory failure. Remains intubated and sedated at this time. Has nonpurposeful movements but not following commands. Monitor. 4. Severe DIYA ? Nephrology following. Likely secondary to ATN primarily due to hypotension in setting of DKA with volume depletion. Baseline creatinine around 0.9. Creatinine 2.5 on admission and peaked at 5.32 on 01/08. Was anuric until evening of 01/08 despite high-dose diuretics. Fortunately has now had improving urine output and most recent creatinine 4.83 on 01/09. Continue to monitor BMP every 12 hours and monitor urine output closely. 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 Appreciate further nephrology recommendations. 5. Acute on chronic anemia ? Hemoglobin 12.9 on admit, baseline appears to be around 13-14. Hemoglobin downtrending during hospitalization but this was initially thought to be secondary to hemodilution from severe volume overload. However hemoglobin has continued to downtrend, with most recent hemoglobin 8.4 on 01/09. No dark or bloody bowel movements noted. However given this drop, will start IV PPI twice daily for now. Will recheck CBC this afternoon and again tomorrow morning. If continuing to downtrend, will consult GI for consideration of EGD. 6. Hyponatremia, resolved ? Sodium 122 on admit, corrected sodium 133 in setting of severe hyperglycemia. Resolved with IV fluids on admission. 7. Acute on chronic debility with history of left BKA ? PT/OT/case management following. Appreciate therapy recommendations. Chronic medical conditions: ? Class II obesity: BMI 37 on admit. Complicates hospital course, care and prognosis. ? History of PAD, hypertension, hyperlipidemia: Holding home amlodipine, lisinopril and statin. ? GERD: Treating with IV PPI twice daily as above. ? Hypothyroidism: Continue home Synthroid. DVT prophylaxis: Heparin subcu CODE STATUS: Full code, unverified Expected disposition: TBD Total clinical time spent by myself addressing the patient's medical issues, reviewing all the data, and collaborating with patient's care team: 35 minutes. Charges/Coding Visit Charges Inpatient E&M: 23392 Subs Hosp L2
--- NOTE | 2025-01-09 10:07 | CASEMGMT ---
Per RN during ICU rounds, there has not been any family involved during the admission so far. TC to the pt's NOK on file, Son (Koko). No answer. CM to continue to follow for initial assessment completion. No immediate needs identified as today is VD#3. CM and SW remains available.
[2025-01-09 10:23] LABS: BETA-HYDROXYBUTYRATE 3.1 mmol/L (0.0-0.3)
[2025-01-09 10:25] LABS: Allen Test Positive; Base Excess -2 mmol/L (-2 to +2); FI02 35.0; PEEP 5; PO2 85 mmHG (75-100); RR 16; SITE R Radial; SO2 96 % (95-99)
[2025-01-09] MEDS: Pantoprazole Sodium 40 MG in 0.9% Normal Saline (100mL MB+) 100 ML 330 MG IV ×2 (10:38→21:49)
[2025-01-09 11:19] LABS: Ferritin 298 ng/mL (37-417); Iron 57 ug/dL (65-175); Iron Binding Capacity,Unsat 119 ug/dL (228-428)
[2025-01-09 11:37] LABS: Iron Binding Capacity,Total 176 ug/dL (250-450)
[2025-01-09] MEDS: Insulin Lispro 100 UNIT in 0.9% Normal Saline (100mL Bag) 99 ML 7.3 UNIT CONT INF (11:58)
--- NOTE | 2025-01-09 12:17 | PCM.PN.REN ---
Subjective Subjective Remains intubated. Objective Data Objective Data Vital Signs: Vital Signs Temp Pulse Resp BP Pulse Ox O2 Del Method O2 Flow Rate 100.0 F H 97 15 113/71 97 Mechanical Ventilator 15 01/09/25 08:00 01/09/25 11:00 01/09/25 11:00 01/09/25 11:00 01/09/25 11:00 01/09/25 11:00 01/06/25 22:15 FiO2 35 01/09/25 11:00 Oxygen Flow Rate (L/min) 15 Oxygen Delivery Method Mechanical Ventilator Weight: 73.1 kg Body Mass Index (BMI) 23.1 Intake & Output: Intake and Output for Last 24 Hours 01/07/25 01/08/25 01/09/25 23:59 23:59 23:59 Intake Total 5067.07 / 5148.47 1502.99 / 1523.22 801.73 / 801.73 Output Total 35 4460 / 4460 3675 / 3675 Balance 5032.07 / 5113.47 -2957.01 / -2936.78 -2873.27 / -2873.27 Lab / Micro Data 01/09/25 06:05 01/09/25 06:05 Labs: Laboratory Results - last 24 hr 01/08/25 11:03: POC Glucose 148 H 01/08/25 12:02: POC Glucose 142 H 01/08/25 14:00: POC Glucose 108 H 01/08/25 15:00: POC Glucose 105 01/08/25 16:04: POC Glucose 104 01/08/25 16:57: POC Glucose 109 H 01/08/25 17:00: Sodium 133, Potassium 3.4, Chloride 96 L, Carbon Dioxide 15.5 L, Anion Gap 22 H, BUN 93 H, Creatinine 5.32 H, Estim Creat Clear Calc 17.15 L, Est GFR (MDRD) Non-Af 12 L, BUN/Creatinine Ratio 17.5, Glucose 114 H, Calcium 7.8 01/08/25 18:12: POC Glucose 125 H 01/08/25 19:39: POC Glucose 138 H 01/08/25 20:10: POC Glucose 140 H 01/08/25 21:19: POC Glucose 141 H 01/08/25 22:08: POC Glucose 130 H 01/09/25 00:13: POC Glucose 164 H 01/09/25 06:05: WBC 12.2 H, RBC 2.89 L, Hgb 8.4 L, Hct 23.7 L, MCV 82.0, MCH 29.1, MCHC 35.4, RDW Std Deviation 43.3, RDW Coeff of Candace 14.6, Plt Count 52 L, MPV 11.4, Immature Gran % (Auto) 0.500, Neut % (Auto) 93.8 H, Lymph % (Auto) 2.1 L, [place] % (Auto) 3.5, Eos % (Auto) 0.0, Baso % (Auto) 0.1, Absolute Neuts (auto) 11.4 H, Absolute Lymphs (auto) 0.26 L, Nucleated RBC % 0, Differential Comment SCANNED, Platelet Estimate MKD DEC, Sodium 137, Potassium 2.7 L*, Chloride 94 L, Carbon Dioxide 16.9 L, Anion Gap 26 H, BUN 90 H, Creatinine 4.83 H, Estim Creat Clear Calc 18.89 L, Est GFR (MDRD) Non-Af 14 L, BUN/Creatinine Ratio 18.6, Glucose 274 H, Calcium 8.3, Iron 57 L, TIBC 176 L, Iron Saturation 32.4, Unsaturated IBC 119 L, Ferritin 298, Total Bilirubin 0.39, Direct Bilirubin 0.26, AST 85 H, ALT 54 H, Alkaline Phosphatase 70, Total Protein 6.1, Albumin 4.0, Globulin 2.1 L, b-Hydroxybutyric mmol/L 3.1 H 01/09/25 06:20: POC Glucose 218 H Micro: Microbiology 01/06/25 16:28 Blood Culture (Wb) - Anticubital Left Blood Culture - Preliminary No growth in 48 hours. 01/06/25 16:41 Blood Culture (Wb) - Right Hand Blood Culture - Preliminary No growth in 48 hours. 01/07/25 Unknown Sputum, Induced/Lukens Gram Stain - Final 01/07/25 18:45 Urine Catheter - Brady Legionella Antigen - Final 01/07/25 18:45 Urine Catheter - Brady Streptococcus pneumoniae Antigen (M - Final 01/07/25 16:30 Nasal Secretion MRSA (PCR) - Final 01/07/25 09:32 Mucosa - Nasopharyngeal Respiratory Panel (PCR) - Final 01/06/25 22:15 Nasal Secretion MRSA (PCR) - Final ABG Data ABG results: ABG 01/09/25 10:21 Specimen Type ART Sample Site R Radial pH 7.39 Bicarbonate Actual 23.1 Total CO2 24 Base Excess -2 O2 Saturation 96 O2 % 35.0 ABG pCO2 38.3 ABG pO2 85 Nito Test Positive Respiration Rate 16 O2 Delivery Device Adult Vent Vent Mode AC/vc+ Tidal Volume 400.0 POC PEEP 5 Radiography Diagnostic Testing: Radiology Impression Chest X-Ray 01/09/25 08:20 IMPRESSION: Tubes and lines in position. Heart size is mildly enlarged. Central vascularity appears increased. There is patchy infiltrate with perihilar consolidation in the right and left hilar regions. Reading [facility] Rhythm Strip Rhythm Strip: Sinus Tach Rate: 105 Physical Exam Narrative On ventilator support, no acute distress S1, S2, RRR Diminished breath sounds, no rales or rhonchi Abdomen soft, nondistended, positive bowel sounds No edema, left BKA, no edema to thighs Indwelling Brady with no urine in bag Assessment & Plan Assessment/Plan (1) DIYA (acute kidney injury): (2) Altered mental status: (3) Acute hypoxic respiratory failure: PLAN: Plan This is a 49-year-old male with past medical history significant for diabetes mellitus type 1, hypothyroidism, alcohol abuse presented to the ER yesterday with altered mental status changes, high glucose, admitted for DKA with severe high anion gap metabolic acidosis, started on insulin drip, received multiple liters of IV fluids. -anuric DIYA likely secondary to ATN, hypotension, DKA. Patient has normal baseline creatinine. Renal ultrasound without any hydronephrosis. Massive nephrotic range proteinuria, presumably this is related to diabetes. He had serologies done before which were negative. DIYA is likely due to ATN. Creatinine is trending down. Urine output is okay. Hypokalemia. Replete as needed.
[2025-01-09] MEDS: Cefepime HCl 1 GM in 0.9% Normal Saline (50mL MB+) 50 ML IV (14:36)
--- NOTE | 2025-01-09 14:37 | CASEMGMT ---
RN CM Assessment Pt's RN provided this RN CM with the pt's son updated Cell #. TC to Koko at this time who states that he is willing to help answer questions for initial CM assessment. Care providers, pharmacy, and demographics verified. Pt son states that he would prefer the pt's Ex- to be kept off of the pt's demo sheet and states that the Ex- is not really involved with the pt currently. Admitting dx: DKA LACE Strata: 3 PCP: Jah Rey Specialists: Koko states that he believes that the pt sees an [facility] but is unsure of the name or location Preferred Pharmacy: [email or web address] Insurance: [employer], [employer]. Per chart review, pt has a history with [facility] and has had a CM. Koko is unsure of who the current CM is. SW notified. Pt son states that the pt has pvt duty aid q MWF x 3 hours per session. Pt son states that the aide also provides him with transportation when needed. Prescription Benefit: Yes LNOK: Koko (Son), Curtis (Son) Living Arrangements: Pt lives alone in a ground level apartment with a flat entrance. ADLs/IADLs: Koko states that the pt requires some assistance and has support through the pvt duty aid as well as himself and Curtis. However, both sons work [employer] and live about 45 minutes away, making it difficult to provide consistent support. Transportation: Pt does not drive. Pt has transportation through the aide and the pt's sons when able. DME: Koko states that the pt has a CBGM, insulin pump, backup BGM, and sufficient supplies needed. Shower chair. Raised toilet seat. Grab bars. FWW. WC. HHC/SNF: Hx with with [facility]. Pt has been to the [facility]. Pt?s goal: TBD Plan: TBD. Per ICU rounds, today is VD#3. CM and SW to continue to follow to ensure safe DC planning. Pt's son denies further questions or concerns at this time. Ryan Sahni RN CM
--- NOTE | 2025-01-09 16:14 | CASEMGMT ---
Social Work Phone call to [facility]. Pt does have services through [facility] and [facility] A[facility] is Hanna Winters (ph [phone] fax [phone]). Pt has services through [facility] 5 hours M,W,F and an emergency response system. SW to send discharge instructions at discharge. VINCENT Estes
[2025-01-09 16:18] LABS: Hematocrit 30.7 % (40-54); Hemoglobin 11.0 g/dL (13.0-16.5); Mean Corp Hgb Conc 35.8 g/dL (32-36); Mean Corpuscular Volume 81.0 fL (80-94); Mean Platelet Vol. 11.8 fl (6.2-12.0); POSITIVE COUNT YES; Platelet Count 68 K/mm3 (150-450); RBC Distribution Width CV 14.5 % (11.6-14.6); RBC Distribution Width SD 42.4 fl (35.1-43.9); Red Blood Count 3.79 M/mm3 (4.6-6.2); White Blood Count 15.8 K/mm3 (4.4-11.0)
[2025-01-09 16:39] LABS: Anion Gap 23 (5-15); BUN 94 mg/dL (4-19); BUN/Creat Ratio 18.8 RATIO (10-20); Calcium,Total 9.1 mg/dL (7.6-11.0); Carbon Dioxide 21.0 mmol/L (21.0-32.0); Chloride 94 mmol/L (98-108); Estimated Creatinine Clearance 18.29 ml/min (50-250); Glucose 155 mg/dL (70-99); Potassium 3.2 mmol/L (3.3-5.1)
[2025-01-09 21:47] LABS: Anion Gap 22 (5-15); BUN 95 mg/dL (4-19); BUN/Creat Ratio 18.1 RATIO (10-20); Calcium,Total 9.1 mg/dL (7.6-11.0); Carbon Dioxide 21.7 mmol/L (21.0-32.0); Chloride 95 mmol/L (98-108); Estimated Creatinine Clearance 17.48 ml/min (50-250); Glucose 112 mg/dL (70-99); Potassium 3.0 mmol/L (3.3-5.1)
[2025-01-09] MEDS: Acetaminophen 650 MG/20 ML UDC GT (21:48)
[2025-01-10] VITALS (33 sets, daily range): BP systolic 77–132; BP diastolic 55–79; PULSE 87–123; RESP 15–42; TEMP 37.7–38.3; O2SAT 87–100; BMI 22.3
[2025-01-10] MEDS: fentaNYL drip 100 ML 15 MCG CONT INF ×2 (00:58→08:37)
[2025-01-10] MEDS: Insulin Lispro 100 UNIT in 0.9% Normal Saline (100mL Bag) 99 ML CONT INF (02:47)
[2025-01-10] MEDS: Propofol 10MG/Ml 1,000 MG/100 ML Bottle 20.9 MG CONT INF ×4 (03:45→19:00)
[2025-01-10] MEDS: 0.9% Normal Saline (250mL Bag) 250 ML 15 ML IV ×2 (04:32→18:08)
[2025-01-10] MEDS: Heparin Injection (Vial) 5,000 UNIT/ML VIAL 5000 UNIT SC ×3 (05:00→21:16)
[2025-01-10 05:45] LABS: Hematocrit 29.1 % (40-54); Hemoglobin 10.3 g/dL (13.0-16.5); Mean Corp Hgb Conc 35.4 g/dL (32-36); Mean Corpuscular Volume 81.7 fL (80-94); Mean Platelet Vol. 12.4 fl (6.2-12.0); POSITIVE COUNT YES; Platelet Count 75 K/mm3 (150-450); RBC Distribution Width CV 14.6 % (11.6-14.6); RBC Distribution Width SD 43.7 fl (35.1-43.9); Red Blood Count 3.56 M/mm3 (4.6-6.2); White Blood Count 15.8 K/mm3 (4.4-11.0)
[2025-01-10 06:12] LABS: AST(SGOT) 44 U/L (<=37); Alanine Aminotransfer ALT/SGPT 49 U/L (<=46); Albumin, Serum 4.0 g/dL (3.5-5.0); Alkaline Phosphatase 83 U/L (40-129); Anion Gap 24 (5-15); BUN 97 mg/dL (4-19); BUN/Creat Ratio 17.0 RATIO (10-20); Bilirubin, Direct 0.26 mg/dL (0.00-0.30); Calcium,Total 9.1 mg/dL (7.6-11.0); Carbon Dioxide 20.3 mmol/L (21.0-32.0); Chloride 93 mmol/L (98-108); Estimated Creatinine Clearance 15.53 ml/min (50-250); Globulin 2.5 g/dL (2.2-4.2); Glucose 112 mg/dL (70-99); Potassium 3.3 mmol/L (3.3-5.1)
[2025-01-10 06:39] LABS: SITE Not entered; Time Given 14:46:50; VBG BASE EXCESS -27 mmol/L (-1.0-3.5); VBG PO2 145 mmHg (25-40); VBG SO2 98 % (50-70); VBG TCO2 < 5 mmol/L (23-33)
--- NOTE | 2025-01-10 06:54 | PCM.PN.INT ---
Assessment & Plan Assessment/Plan (1) Acute hypoxic respiratory failure: (2) DKA (diabetic ketoacidoses): QUALIFIERS: Diabetes mellitus type: type 1 Diabetes mellitus complication detail: with coma Qualified Code(s): E10.11 - Type 1 diabetes mellitus with ketoacidosis with coma PLAN: Plan RECOMMENDATIONS: 1. Continue assist-control mode of mechanical ventilation. Continue to wean FiO2 and PEEP as tolerated. 2. Recheck beta hydroxybutyrate level. 3. Continue insulin infusion for now. 4. Fentanyl and propofol for sedation. 5. Continue bronchodilators. 6. Continue empiric antimicrobials. 7. Continue appropriate DVT and GI prophylaxis. IMPRESSIONS: 1. Acute hypoxemic respiratory failure Presumed secondary to underlying pneumonia with concern for inability to compensate for metabolic demands of DKA. The patient will be continued on assist-control mode mechanical ventilation. Continue to wean FiO2 and PEEP as tolerated. Continue current sedation regimen, with tentative plans to proceed with spontaneous awakening and breathing trials daily, as tolerated. Antimicrobials will be continued as ordered. 2. Diabetic ketoacidosis Improving. Will plan to continue insulin infusion and recheck beta hydroxybutyrate level. 3. Acute kidney injury Most likely secondary to ischemic ATN in the setting of DKA and hypotension. Nephrology is currently following to assist with medical management. 4. Chronic debility/history of hypertension/hyperlipidemia/peripheral arterial disease/GERD/hypothyroidism Complicates care, management, recovery and prognosis. Continue supportive measures as noted above. Continue to hold nutritional support pending resolution of DKA. TIME: 33 minutes of critical care time, independent of procedures, was spent addressing the patient's acute hypoxemic respiratory failure, diabetic ketoacidosis, acute kidney injury, review of all data and collaboration with the care team. Subjective Subjective The patient was seen and examined at the bedside this morning. Events from the last 24 hours have been reviewed. The patient continues to have low-grade fevers but remains otherwise hemodynamically stable on assist-control mode mechanical ventilation with an FiO2 requirement of 30% and PEEP of 5. Unfortunately, the patient failed his attempted spontaneous breathing trial this morning due to increased agitation and hypoxemia. Overnight nursing staff reported significant bilious output from his OG tube. Although his anion gap remains elevated, his beta hydroxybutyrate level has improved. White blood cell count is elevated at 16,000. Creatinine is elevated at 5.7. Objective Data Objective Data The patient's most recent lab work, culture data and imaging studies have all been personally reviewed. Blood cultures are pending. Respiratory viral panel was negative. Strep and urine Legionella antigens were negative. Sputum culture is pending. Vital Signs: Vital Signs Temp Pulse Resp BP Pulse Ox O2 Del Method O2 Flow Rate 100.4 F H 90 16 94/62 97 Mechanical Ventilator 15 01/10/25 03:00 01/10/25 06:00 01/10/25 06:00 01/10/25 06:00 01/10/25 06:00 01/10/25 06:00 01/06/25 22:15 FiO2 30 01/10/25 06:00 Oxygen Flow Rate (L/min) 15 Oxygen Delivery Method Mechanical Ventilator Weight: 156 lb 1.396 oz Body Mass Index (BMI) 22.3 Intake & Output: Intake and Output for Last 24 Hours 01/08/25 01/09/25 01/10/25 23:59 23:59 23:59 Intake Total 1502.99 / 1523.22 1783.22 / 1821.42 456.12 / 456.12 Output Total 4460 / 4460 5725 / 5725 47 / 47 Balance -2957.01 / -2936.78 -3941.78 / -3903.58 409.12 / 409.12 Lab / Micro Data Attestation: I reviewed the patient's lab results. 01/10/25 05:24 01/10/25 05:24 Labs: Laboratory Results - last 24 hr 01/07/25 00:29: POC Glucose 152 H 01/07/25 00:30: POC Glucose 283 H 01/07/25 03:29: POC Glucose 237 H 01/09/25 06:05: Iron 57 L, TIBC 176 L, Iron Saturation 32.4, Unsaturated IBC 119 L, Ferritin 298, b-Hydroxybutyric mmol/L 3.1 H 01/09/25 12:01: POC Glucose 234 H 01/09/25 13:30: POC Glucose 178 H 01/09/25 14:33: POC Glucose 155 H 01/09/25 16:00: WBC 15.8 H, RBC 3.79 L, Hgb 11.0 L, Hct 30.7 L, MCV 81.0, MCH 29.0, MCHC 35.8, RDW Std Deviation 42.4, RDW Coeff of Candace 14.5, Plt Count 68 L, MPV 11.8, Sodium 138, Potassium 3.2 L, Chloride 94 L, Carbon Dioxide 21.0, Anion Gap 23 H, BUN 94 H, Creatinine 4.99 H, Estim Creat Clear Calc 18.29 L, Est GFR (MDRD) Non-Af 13 L, BUN/Creatinine Ratio 18.8, Glucose 155 H, Calcium 9.1 01/09/25 16:23: POC Glucose 152 H 01/09/25 18:09: POC Glucose 130 H 01/09/25 19:06: POC Glucose 137 H 01/09/25 20:39: POC Glucose 108 H 01/09/25 20:40: Sodium 139, Potassium 3.0 L, Chloride 95 L, Carbon Dioxide 21.7, Anion Gap 22 H, BUN 95 H, Creatinine 5.22 H, Estim Creat Clear Calc 17.48 L, Est GFR (MDRD) Non-Af 13 L, BUN/Creatinine Ratio 18.1, Glucose 112 H, Calcium 9.1 01/09/25 21:37: POC Glucose 87 01/09/25 22:06: POC Glucose 83 01/09/25 23:06: POC Glucose 68 L 01/09/25 23:42: POC Glucose 111 H 01/10/25 00:52: POC Glucose 113 H 01/10/25 01:38: POC Glucose 130 H 01/10/25 02:46: POC Glucose 111 H 01/10/25 03:45: POC Glucose 123 H 01/10/25 04:39: POC Glucose 111 H 01/10/25 05:24: WBC 15.8 H, RBC 3.56 L, Hgb 10.3 L, Hct 29.1 L, MCV 81.7, MCH 28.9, MCHC 35.4, RDW Std Deviation 43.7, RDW Coeff of Candace 14.6, Plt Count 75 L, MPV 12.4 H, Sodium 137, Potassium 3.3, Chloride 93 L, Carbon Dioxide 20.3 L, Anion Gap 24 H, BUN 97 H, Creatinine 5.70 H, Estim Creat Clear Calc 15.53 L, Est GFR (MDRD) Non-Af 11 L, BUN/Creatinine Ratio 17.0, Glucose 112 H, Calcium 9.1, Total Bilirubin 0.39, Direct Bilirubin 0.26, AST 44 H, ALT 49 H, Alkaline Phosphatase 83, Total Protein 6.5, Albumin 4.0, Globulin 2.5 01/10/25 05:45: POC Glucose 116 H Micro: Microbiology 01/07/25 Unknown Sputum, Induced/Lukens Gram Stain - Final 01/07/25 Unknown Sputum, Induced/Lukens Respiratory Culture - Preliminary Presumptive C albicans 01/06/25 16:28 Blood Culture (Wb) - Anticubital Left Blood Culture - Preliminary No growth in 48 hours. 01/06/25 16:41 Blood Culture (Wb) - Right Hand Blood Culture - Preliminary No growth in 48 hours. 01/07/25 18:45 Urine Catheter - Brady Legionella Antigen - Final 01/07/25 18:45 Urine Catheter - Brady Streptococcus pneumoniae Antigen (M - Final 01/07/25 16:30 Nasal Secretion MRSA (PCR) - Final 01/07/25 09:32 Mucosa - Nasopharyngeal Respiratory Panel (PCR) - Final 01/06/25 22:15 Nasal Secretion MRSA (PCR) - Final ABG Data ABG results: ABG 01/06/25 01/09/25 14:44 10:21 Specimen Type JULIO ART Sample Site Not entered R Radial pH 7.39 Bicarbonate Actual 23.1 Total CO2 24 Base Excess -2 O2 Saturation 96 O2 % 35.0 ABG pCO2 38.3 ABG pO2 85 Nito Test Positive VBG pH 7.08 L* VBG pO2 145 H VBG HCO3 3 L VBG Total CO2 < 5 L VBG O2 Sat (Calc) 98 H VBG Base Excess -27 L POC Mix VBG pCO2 Pt Tmp 9.4 L* Respiration Rate 16 O2 Delivery Device Not entered Adult Vent Vent Mode AC/vc+ Tidal Volume 400.0 POC PEEP 5 Crit Call To/Read Back Yes Blood Gas Notified Whom glauthier Blood Gas Notified Time 14:46:50 Radiography Diagnostic Testing: Radiology Impression Echocardiogram 01/07/25 15:02 Interpretation Summary The left ventricular ejection fraction is 65 %. Normal LV size. Stage 1 diastolic dysfunction. Ordering Physician: Shen Reaz Performed By: Bret Rodas RCS Chest X-Ray 01/09/25 08:20 IMPRESSION: Tubes and lines in position. Heart size is mildly enlarged. Central vascularity appears increased. There is patchy infiltrate with perihilar consolidation in the right and left hilar regions. Reading Location: [facility] Rhythm Strip Rhythm Strip: Sinus Tach Rate: 105 Physical Exam Const Constitutional Narrative: Intubated, sedated and mechanically ventilated. No ventilator dyssynchrony noted. HEENT normocephalic and head/scalp atraumatic Mouth: endotracheal tube in place and OG tube in place Eyes PERRL, EOMs intact bilaterally and conjunctivae normal Neck supple General: trachea midline Chest inspection of chest normal Resp Auscultation: diminished lung sounds; Negative for rales, rhonchi or wheezes Cardio regular rate and regular rhythm GI normal to inspection, nondistended, normoactive bowel sounds Extremity Extremity Narrative: Left BKA Neuro Sensorium / Orientation: sedated on vent Charges/Coding Procedures Hospitalists Procedures: [id number] Critical Care 1st Hr
--- NOTE | 2025-01-10 07:23 | PCM.PN.CARD ---
Subjective Subjective Patient seen and evaluated Objective Data Vital Signs: Vital Signs Temp Pulse Resp BP Pulse Ox O2 Del Method O2 Flow Rate 100.4 F H 119 H 28 H 94/62 95 Mechanical Ventilator 15 01/10/25 03:00 01/10/25 07:21 01/10/25 07:21 01/10/25 06:00 01/10/25 07:21 01/10/25 06:00 01/06/25 22:15 FiO2 30 01/10/25 06:00 Oxygen Flow Rate (L/min) 15 Oxygen Delivery Method Mechanical Ventilator Weight: 156 lb 1.396 oz Body Mass Index (BMI) 22.3 Intake & Output: Intake and Output for Last 24 Hours 01/08/25 01/09/25 01/10/25 23:59 23:59 23:59 Intake Total 1502.99 / 1523.22 1783.22 / 1821.42 497.92 / 497.92 Output Total 4460 / 4460 5725 / 5725 47 / 47 Balance -2957.01 / -2936.78 -3941.78 / -3903.58 450.92 / 450.92 Lab / Micro Data 01/10/25 05:24 01/10/25 05:24 Labs: Laboratory Results - last 24 hr 01/07/25 00:29: POC Glucose 152 H 01/07/25 00:30: POC Glucose 283 H 01/07/25 03:29: POC Glucose 237 H 01/09/25 06:05: Iron 57 L, TIBC 176 L, Iron Saturation 32.4, Unsaturated IBC 119 L, Ferritin 298, b-Hydroxybutyric mmol/L 3.1 H 01/09/25 12:01: POC Glucose 234 H 01/09/25 13:30: POC Glucose 178 H 01/09/25 14:33: POC Glucose 155 H 01/09/25 16:00: WBC 15.8 H, RBC 3.79 L, Hgb 11.0 L, Hct 30.7 L, MCV 81.0, MCH 29.0, MCHC 35.8, RDW Std Deviation 42.4, RDW Coeff of Candace 14.5, Plt Count 68 L, MPV 11.8, Sodium 138, Potassium 3.2 L, Chloride 94 L, Carbon Dioxide 21.0, Anion Gap 23 H, BUN 94 H, Creatinine 4.99 H, Estim Creat Clear Calc 18.29 L, Est GFR (MDRD) Non-Af 13 L, BUN/Creatinine Ratio 18.8, Glucose 155 H, Calcium 9.1 01/09/25 16:23: POC Glucose 152 H 01/09/25 18:09: POC Glucose 130 H 01/09/25 19:06: POC Glucose 137 H 01/09/25 20:39: POC Glucose 108 H 01/09/25 20:40: Sodium 139, Potassium 3.0 L, Chloride 95 L, Carbon Dioxide 21.7, Anion Gap 22 H, BUN 95 H, Creatinine 5.22 H, Estim Creat Clear Calc 17.48 L, Est GFR (MDRD) Non-Af 13 L, BUN/Creatinine Ratio 18.1, Glucose 112 H, Calcium 9.1 01/09/25 21:37: POC Glucose 87 01/09/25 22:06: POC Glucose 83 01/09/25 23:06: POC Glucose 68 L 01/09/25 23:42: POC Glucose 111 H 01/10/25 00:52: POC Glucose 113 H 01/10/25 01:38: POC Glucose 130 H 01/10/25 02:46: POC Glucose 111 H 01/10/25 03:45: POC Glucose 123 H 01/10/25 04:39: POC Glucose 111 H 01/10/25 05:24: WBC 15.8 H, RBC 3.56 L, Hgb 10.3 L, Hct 29.1 L, MCV 81.7, MCH 28.9, MCHC 35.4, RDW Std Deviation 43.7, RDW Coeff of Candace 14.6, Plt Count 75 L, MPV 12.4 H, Sodium 137, Potassium 3.3, Chloride 93 L, Carbon Dioxide 20.3 L, Anion Gap 24 H, BUN 97 H, Creatinine 5.70 H, Estim Creat Clear Calc 15.53 L, Est GFR (MDRD) Non-Af 11 L, BUN/Creatinine Ratio 17.0, Glucose 112 H, Calcium 9.1, Total Bilirubin 0.39, Direct Bilirubin 0.26, AST 44 H, ALT 49 H, Alkaline Phosphatase 83, Total Protein 6.5, Albumin 4.0, Globulin 2.5 01/10/25 05:45: POC Glucose 116 H 01/10/25 06:43: POC Glucose 109 H Micro: Microbiology 01/07/25 Unknown Sputum, Induced/Lukens Gram Stain - Final 01/07/25 Unknown Sputum, Induced/Lukens Respiratory Culture - Preliminary Presumptive C albicans 01/06/25 16:28 Blood Culture (Wb) - Anticubital Left Blood Culture - Preliminary No growth in 48 hours. 01/06/25 16:41 Blood Culture (Wb) - Right Hand Blood Culture - Preliminary No growth in 48 hours. ABG Data ABG results: ABG 01/06/25 01/09/25 14:44 10:21 Specimen Type JULIO ART Sample Site Not entered R Radial pH 7.39 Bicarbonate Actual 23.1 Total CO2 24 Base Excess -2 O2 Saturation 96 O2 % 35.0 ABG pCO2 38.3 ABG pO2 85 Nito Test Positive VBG pH 7.08 L* VBG pO2 145 H VBG HCO3 3 L VBG Total CO2 < 5 L VBG O2 Sat (Calc) 98 H VBG Base Excess -27 L POC Mix VBG pCO2 Pt Tmp 9.4 L* Respiration Rate 16 O2 Delivery Device Not entered Adult Vent Vent Mode AC/vc+ Tidal Volume 400.0 POC PEEP 5 Crit Call To/Read Back Yes Blood Gas Notified Whom glauthier Blood Gas Notified Time 14:46:50 Rhythm Strip Rhythm Strip: Sinus Tach Rate: 105 Cardiology Labs/Tests 01/06/25 14:44: VBG pH 7.08 L*, VBG pO2 145 H, VBG HCO3 3 L, VBG O2 Sat (Calc) 98 H, VBG Base Excess -27 L 01/09/25 06:05: Iron 57 L, TIBC 176 L, Iron Saturation 32.4, Ferritin 298 01/09/25 10:21: pH 7.39, Bicarbonate Actual 23.1, Base Excess -2, O2 Saturation 96, ABG pCO2 38.3, ABG pO2 85, Nito Test Positive 01/09/25 16:00: WBC 15.8 H, RBC 3.79 L, Hgb 11.0 L, Hct 30.7 L, MCV 81.0, MCH 29.0, MCHC 35.8, Plt Count 68 L, MPV 11.8, Sodium 138, Potassium 3.2 L, Chloride 94 L, Carbon Dioxide 21.0, Anion Gap 23 H, BUN 94 H, Creatinine 4.99 H, Est GFR (MDRD) Non-Af 13 L, BUN/Creatinine Ratio 18.8, Glucose 155 H, Calcium 9.1 01/09/25 20:40: Sodium 139, Potassium 3.0 L, Chloride 95 L, Carbon Dioxide 21.7, Anion Gap 22 H, BUN 95 H, Creatinine 5.22 H, Est GFR (MDRD) Non-Af 13 L, BUN/Creatinine Ratio 18.1, Glucose 112 H, Calcium 9.1 01/10/25 05:24: WBC 15.8 H, RBC 3.56 L, Hgb 10.3 L, Hct 29.1 L, MCV 81.7, MCH 28.9, MCHC 35.4, Plt Count 75 L, MPV 12.4 H, Sodium 137, Potassium 3.3, Chloride 93 L, Carbon Dioxide 20.3 L, Anion Gap 24 H, BUN 97 H, Creatinine 5.70 H, Est GFR (MDRD) Non-Af 11 L, BUN/Creatinine Ratio 17.0, Glucose 112 H, Calcium 9.1, Total Bilirubin 0.39, Direct Bilirubin 0.26 Rhythm: EKG: ECHO: Stress Test: Cardiac Cath: PCI: CT Surgery: Holter monitor: EPS: PPM: CXR: Chest CT Scan: Radiography Diagnostic Testing: Radiology Impression Echocardiogram 01/07/25 15:02 Interpretation Summary The left ventricular ejection fraction is 65 %. Normal LV size. Stage 1 diastolic dysfunction. Ordering Physician: Shen Reza Performed By: Bret Rodas RCS Chest X-Ray 01/09/25 08:20 IMPRESSION: Tubes and lines in position. Heart size is mildly enlarged. Central vascularity appears increased. There is patchy infiltrate with perihilar consolidation in the right and left hilar regions. Reading Location: [facility] Physical Exam Const Constitutional Narrative: Intubated and sedated. Nonpurposeful movement noted, not following commands. HEENT head/scalp atraumatic HEENT Narrative: ET tube in place. Neck supple Resp Resp Narrative: Diminished breath sounds bilaterally with crackles noted in mid to lower lung zones. No wheezing noted. Cardio no murmurs Cardio Narrative: Tachycardic, regular rhythm. GI soft to palpation and non-distended Extremity normal to inspection Assessment & Plan Assessment/Plan (1) Acute hypoxic respiratory failure: PLAN: Patient's chest x-ray shows some slight improvement in the diffuse opacities which appear to be clinically more consistent with pneumonitis than pulmonary edema. The patient has no significant edema being suctioned from his ET tube. His costophrenic angles are very clear with no evidence of effusions. Echocardiogram demonstrated preserved left ventricular systolic function. Will continue with weaning parameters PLAN: Plan 1. From a cardiovascular standpoint at this point in time would continue supportive care.
[2025-01-10 08:15] LABS: BETA-HYDROXYBUTYRATE 0.6 mmol/L (0.0-0.3)
--- NOTE | 2025-01-10 08:19 | CPS ---
SBT attempted, duration 2 minutes. Patient becomes aggitated with an increased RR to the 40s, increased HR 130s, decreased sats 80s. Patient calms down and becomes apenic. SBT failed and returned to previous vent settings.
--- NOTE | 2025-01-10 09:25 | RAD_ITS ---
PROCEDURE: CHEST 1 VIEW (PORTABLE) 01/10/2025 REASON FOR EXAM: HYPOXIA TECHNIQUE: Frontal view of the chest. COMPARISON: January 09, 2025 FINDINGS: There is an ET tube in position with its tip 6.8 cm above the level of the brigida. There is an enteric tube seen with its tip in the stomach. Heart size is within normal limits. Central vascularity is increased, improved. There are increased interstitial markings with no focal consolidation. There is no pneumothorax or effusion. There is no acute bony abnormality. Aortic calcifications are visible. RAD/Chest 1 View (Portable) IMPRESSION: Tubes and lines in position. Central vascularity is increased, improved. There are increased interstitial markings with no focal consolidation. Reading Location: [facility]
[2025-01-10] MEDS: Pantoprazole Sodium 40 MG in 0.9% Normal Saline (100mL MB+) 100 ML 330 MG IV ×2 (09:31→21:15)
[2025-01-10] MEDS: CHLORHEXIDINE GLUC 2% CLOTH 1 EACH TOWELETTE TOPICAL (09:31)
[2025-01-10] MEDS: Chlorhexidine 15 ML PO ×2 (09:31→21:21)
--- NOTE | 2025-01-10 10:05 | NURSING ---
Instilled approx 45 cc sterile saline into bladder for irrigation with easy return of clear yellow urine
--- NOTE | 2025-01-10 10:32 | PN.RENAL_ITS ---
Subjective Subjective Patient remains intubated. No overnight events. Objective Data Objective Data Vital Signs: Vital Signs Temp Pulse Resp BP Pulse Ox O2 Del Method O2 Flow Rate 101 F H 112 H 16 86/61 L 95 Mechanical Ventilator 15 01/10/25 09:00 01/10/25 10:00 01/10/25 10:00 01/10/25 09:00 01/10/25 10:00 01/10/25 09:00 01/06/25 22:15 FiO2 40 01/10/25 09:00 Oxygen Flow Rate (L/min) 15 Oxygen Delivery Method Mechanical Ventilator Weight: 70.8 kg Body Mass Index (BMI) 22.3 Intake & Output: Intake and Output for Last 24 Hours 01/08/25 01/09/25 01/10/25 23:59 23:59 23:59 Intake Total 1502.99 / 1523.22 1783.22 / 1821.42 675.09 / 675.09 Output Total 4460 / 4460 5725 / 5725 47 / 47 Balance -2957.01 / -2936.78 -3941.78 / -3903.58 628.09 / 628.09 Lab / Micro Data 01/10/25 05:24 01/10/25 05:24 Labs: Laboratory Results - last 24 hr 01/07/25 00:29: POC Glucose 152 H 01/07/25 00:30: POC Glucose 283 H 01/07/25 03:29: POC Glucose 237 H 01/09/25 06:05: Iron 57 L, TIBC 176 L, Iron Saturation 32.4, Unsaturated IBC 119 L, Ferritin 298 01/09/25 12:01: POC Glucose 234 H 01/09/25 13:30: POC Glucose 178 H 01/09/25 14:33: POC Glucose 155 H 01/09/25 16:00: WBC 15.8 H, RBC 3.79 L, Hgb 11.0 L, Hct 30.7 L, MCV 81.0, MCH 29.0, MCHC 35.8, RDW Std Deviation 42.4, RDW Coeff of Candace 14.5, Plt Count 68 L, MPV 11.8, Sodium 138, Potassium 3.2 L, Chloride 94 L, Carbon Dioxide 21.0, Anion Gap 23 H, BUN 94 H, Creatinine 4.99 H, Estim Creat Clear Calc 18.29 L, Est GFR (MDRD) Non-Af 13 L, BUN/Creatinine Ratio 18.8, Glucose 155 H, Calcium 9.1 01/09/25 16:23: POC Glucose 152 H 01/09/25 18:09: POC Glucose 130 H 01/09/25 19:06: POC Glucose 137 H 01/09/25 20:39: POC Glucose 108 H 01/09/25 20:40: Sodium 139, Potassium 3.0 L, Chloride 95 L, Carbon Dioxide 21.7, Anion Gap 22 H, BUN 95 H, Creatinine 5.22 H, Estim Creat Clear Calc 17.48 L, Est GFR (MDRD) Non-Af 13 L, BUN/Creatinine Ratio 18.1, Glucose 112 H, Calcium 9.1 01/09/25 21:37: POC Glucose 87 01/09/25 22:06: POC Glucose 83 01/09/25 23:06: POC Glucose 68 L 01/09/25 23:42: POC Glucose 111 H 01/10/25 00:52: POC Glucose 113 H 01/10/25 01:38: POC Glucose 130 H 01/10/25 02:46: POC Glucose 111 H 01/10/25 03:45: POC Glucose 123 H 01/10/25 04:39: POC Glucose 111 H 01/10/25 05:24: WBC 15.8 H, RBC 3.56 L, Hgb 10.3 L, Hct 29.1 L, MCV 81.7, MCH 28.9, MCHC 35.4, RDW Std Deviation 43.7, RDW Coeff of Candace 14.6, Plt Count 75 L, MPV 12.4 H, Sodium 137, Potassium 3.3, Chloride 93 L, Carbon Dioxide 20.3 L, A nion Gap 24 H, BUN 97 H, Creatinine 5.70 H, Estim Creat Clear Calc 15.53 L, Est GFR (MDRD) Non-Af 11 L, BUN/Creatinine Ratio 17.0, Glucose 112 H, Calcium 9.1, Total Bilirubin 0.39, Direct Bilirubin 0.26, AST 44 H, ALT 49 H, Alkaline Phosphatase 83, Total Protein 6.5, Albumin 4.0, Globulin 2.5, b-Hydroxybutyric mmol/L 0.6 H 01/10/25 05:45: POC Glucose 116 H 01/10/25 06:43: POC Glucose 109 H 01/10/25 07:56: POC Glucose 92 01/10/25 09:20: POC Glucose 89 Micro: Microbiology 01/07/25 Unknown Sputum, Induced/Lukens Gram Stain - Final 01/07/25 Unknown Sputum, Induced/Lukens Respiratory Culture - Final Presumptive C albicans 01/06/25 16:28 Blood Culture (Wb) - Anticubital Left Blood Culture - Preliminary No growth in 48 hours. 01/06/25 16:41 Blood Culture (Wb) - Right Hand Blood Culture - Preliminary No growth in 48 hours. 01/07/25 18:45 Urine Catheter - Brady Legionella Antigen - Final 01/07/25 18:45 Urine Catheter - Brady Streptococcus pneumoniae Antigen (M - Final 01/07/25 16:30 Nasal Secretion MRSA (PCR) - Final 01/07/25 09:32 Mucosa - Nasopharyngeal Respiratory Panel (PCR) - Final 01/06/25 22:15 Nasal Secretion MRSA (PCR) - Final ABG Data ABG results: ABG 01/06/25 14:44 Specimen Type JULIO Sample Site Not entered VBG pH 7.08 L* VBG pO2 145 H VBG HCO3 3 L VBG Total CO2 < 5 L VBG O2 Sat (Calc) 98 H VBG Base Excess -27 L POC Mix VBG pCO2 Pt Tmp 9.4 L* O2 Delivery Device Not entered Crit Call To/Read Back Yes Blood Gas Notified Whom glauthier Blood Gas Notified Time 14:46:50 Radiography Diagnostic Testing: Radiology Impression Echocardiogram 01/07/25 15:02 Interpretation Summary The left ventricular ejection fraction is 65 %. Normal LV size. Stage 1 diastolic dysfunction. Ordering Physician: Shen Reza Performed By: Bret Rodas RCS Chest X-Ray 01/10/25 09:25 IMPRESSION: Tubes and lines in position. Central vascularity is increased, improved. There are increased interstitial markings with no focal consolidation. Reading Location: [facility] Rhythm Strip Rhythm Strip: Sinus Tach Rate: 105 Physical Exam Narrative On ventilator support, no acute distress S1, S2, RRR Breath sounds clear anteriorly. No rales or rhonchi Abdomen soft, nondistended, positive bowel sounds No edema, left BKA, no edema to thighs Indwelling Brady with yellow urine in bag Assessment & Plan Assessment/Plan (1) DIYA (acute kidney injury): (2) Altered mental status: (3) Acute hypoxic respiratory failure: PLAN: Plan This is a 49-year-old male with past medical history significant for diabetes mellitus type 1, hypothyroidism, alcohol abuse presented to the ER yesterday with altered mental status changes, high glucose, admitted for DKA with severe high anion gap metabolic acidosis, started on insulin drip, received multiple liters of IV fluids. - Initially anuric DIYA likely secondary to ATN, hypotension, DKA. Patient has normal baseline creatinine. Renal ultrasound without any hydronephrosis. Massive nephrotic range proteinuria, presumably this is related to diabetes (A1C ranging 10-12% April 2023 to present). He had serologies done before which were negative. Yesterday it appeared SCr was plateauing around 4.8, today serum creatinine 5.5. He had 4.2 L urine output yesterday. Gastric output 1.5 L. Potassium and bicarb acceptable. 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 Urine output dropped off today, will flush Brady to make sure no obstruction contributing to DIYA. Quite possibly intravascular volume depleted, patient to be started on gentle IV fluids today. No acute indication for renal replacement therapy at this time. Discussed nephrology plan with Dr. Orona. Labs ordered for morning. Assessment and plan reviewed with Dr. Lopez.
[2025-01-10] MEDS: Lactated Ringers 500 ML IV (10:38)
--- NOTE | 2025-01-10 11:34 | PCM.PN.HOSP ---
Reason for Visit Reason for Visit: Diagnoses Type 1 diabetes mellitus with ketoacidosis with coma (01/06/25) Type 2 diabetes mellitus with ketoacidosis without coma (01/06/25) Acute respiratory failure with hypoxia (01/06/25) Acute kidney failure, unspecified (01/06/25) Altered mental status, unspecified (01/06/25) Subjective Subjective Saw patient at bedside this morning. Patient remains intubated and sedated. He unfortunately failed a spontaneous breathing trial this morning. Objective Data Objective Data Vital Signs: Vital Signs Temp Pulse Resp BP Pulse Ox O2 Del Method O2 Flow Rate 101 F H 93 16 77/58 L 100 Mechanical Ventilator 15 01/10/25 11:00 01/10/25 11:00 01/10/25 11:00 01/10/25 11:00 01/10/25 11:00 01/10/25 11:00 01/06/25 22:15 FiO2 40 01/10/25 11:00 Oxygen Flow Rate (L/min) 15 Oxygen Delivery Method Mechanical Ventilator Weight: 70.8 kg Body Mass Index (BMI) 22.3 Intake & Output: Intake and Output for Last 24 Hours 01/08/25 01/09/25 01/10/25 23:59 23:59 23:59 Intake Total 1502.99 / 1523.22 1783.22 / 1821.42 769.29 / 769.29 Output Total 4460 / 4460 5725 / 5725 147 / 147 Balance -2957.01 / -2936.78 -3941.78 / -3903.58 622.29 / 622.29 Lab / Micro Data 01/10/25 05:24 01/10/25 05:24 Labs: Laboratory Results - last 24 hr 01/07/25 00:29: POC Glucose 152 H 01/07/25 00:30: POC Glucose 283 H 01/07/25 03:29: POC Glucose 237 H 01/09/25 06:05: TIBC 176 L, Iron Saturation 32.4 01/09/25 12:01: POC Glucose 234 H 01/09/25 13:30: POC Glucose 178 H 01/09/25 14:33: POC Glucose 155 H 01/09/25 16:00: WBC 15.8 H, RBC 3.79 L, Hgb 11.0 L, Hct 30.7 L, MCV 81.0, MCH 29.0, MCHC 35.8, RDW Std Deviation 42.4, RDW Coeff of Candace 14.5, Plt Count 68 L, MPV 11.8, Sodium 138, Potassium 3.2 L, Chloride 94 L, Carbon Dioxide 21.0, Anion Gap 23 H, BUN 94 H, Creatinine 4.99 H, Estim Creat Clear Calc 18.29 L, Est GFR (MDRD) Non-Af 13 L, BUN/Creatinine Ratio 18.8, Glucose 155 H, Calcium 9.1 01/09/25 16:23: POC Glucose 152 H 01/09/25 18:09: POC Glucose 130 H 01/09/25 19:06: POC Glucose 137 H 01/09/25 20:39: POC Glucose 108 H 01/09/25 20:40: Sodium 139, Potassium 3.0 L, Chloride 95 L, Carbon Dioxide 21.7, Anion Gap 22 H, BUN 95 H, Creatinine 5.22 H, Estim Creat Clear Calc 17.48 L, Est GFR (MDRD) Non-Af 13 L, BUN/Creatinine Ratio 18.1, Glucose 112 H, Calcium 9.1 01/09/25 21:37: POC Glucose 87 01/09/25 22:06: POC Glucose 83 01/09/25 23:06: POC Glucose 68 L 01/09/25 23:42: POC Glucose 111 H 01/10/25 00:52: POC Glucose 113 H 01/10/25 01:38: POC Glucose 130 H 01/10/25 02:46: POC Glucose 111 H 01/10/25 03:45: POC Glucose 123 H 01/10/25 04:39: POC Glucose 111 H 01/10/25 05:24: WBC 15.8 H, RBC 3.56 L, Hgb 10.3 L, Hct 29.1 L, MCV 81.7, MCH 28.9, MCHC 35.4, RDW Std Deviation 43.7, RDW Coeff of Candace 14.6, Plt Count 75 L, MPV 12.4 H, Sodium 137, Potassium 3.3, Chloride 93 L, Carbon Dioxide 20.3 L, Anion Gap 24 H, BUN 97 H, Creatinine 5.70 H, Estim Creat Clear Calc 15.53 L, Est GFR (MDRD) Non-Af 11 L, BUN/Creatinine Ratio 17.0, Glucose 112 H, Calcium 9.1, Total Bilirubin 0.39, Direct Bilirubin 0.26, AST 44 H, ALT 49 H, Alkaline Phosphatase 83, Total Protein 6.5, Albumin 4.0, Globulin 2.5, b-Hydroxybutyric mmol/L 0.6 H 01/10/25 05:45: POC Glucose 116 H 01/10/25 06:43: POC Glucose 109 H 01/10/25 07:56: POC Glucose 92 01/10/25 09:20: POC Glucose 89 01/10/25 10:46: POC Glucose 82 Micro: Microbiology 01/07/25 Unknown Sputum, Induced/Lukens Gram Stain - Final 01/07/25 Unknown Sputum, Induced/Lukens Respiratory Culture - Final Presumptive C albicans 01/06/25 16:28 Blood Culture (Wb) - Anticubital Left Blood Culture - Preliminary No growth in 48 hours. 01/06/25 16:41 Blood Culture (Wb) - Right Hand Blood Culture - Preliminary No growth in 48 hours. 01/07/25 18:45 Urine Catheter - Brady Legionella Antigen - Final 01/07/25 18:45 Urine Catheter - Brady Streptococcus pneumoniae Antigen (M - Final 01/07/25 16:30 Nasal Secretion MRSA (PCR) - Final 01/07/25 09:32 Mucosa - Nasopharyngeal Respiratory Panel (PCR) - Final 01/06/25 22:15 Nasal Secretion MRSA (PCR) - Final ABG Data ABG results: ABG 01/06/25 14:44 Specimen Type JULIO Sample Site Not entered VBG pH 7.08 L* VBG pO2 145 H VBG HCO3 3 L VBG Total CO2 < 5 L VBG O2 Sat (Calc) 98 H VBG Base Excess -27 L POC Mix VBG pCO2 Pt Tmp 9.4 L* O2 Delivery Device Not entered Crit Call To/Read Back Yes Blood Gas Notified Whom glauthier Blood Gas Notified Time 14:46:50 Radiography Diagnostic Testing: Radiology Impression Echocardiogram 01/07/25 15:02 Interpretation Summary The left ventricular ejection fraction is 65 %. Normal LV size. Stage 1 diastolic dysfunction. Ordering Physician: Shen Reza Performed By: Bret Rodas RCS Chest X-Ray 01/10/25 09:25 IMPRESSION: Tubes and lines in position. Central vascularity is increased, improved. There are increased interstitial markings with no focal consolidation. Reading [facility] Rhythm Strip Rhythm Strip: Sinus Tach Rate: 105 Physical Exam Const Constitutional Narrative: Intubated and sedated. Nonpurposeful movement noted, not following commands. HEENT head/scalp atraumatic HEENT Narrative: ET tube in place. Neck supple Resp Resp Narrative: Diminished breath sounds bilaterally with significant rhonchi noted in upper airways bilaterally. No wheezing noted. Cardio no murmurs Cardio Narrative: Tachycardic, regular rhythm. GI soft to palpation and non-distended Extremity normal to inspection Assessment & Plan Assessment/Plan (1) DKA (diabetic ketoacidoses): QUALIFIERS: Diabetes mellitus type: type 1 Diabetes mellitus complication detail: with coma Qualified Code(s): E10.11 - Type 1 diabetes mellitus with ketoacidosis with coma PLAN: Plan Patient is a 49-year-old male who presented to [facility] ED on 01/06/2025 with altered mental status and hyperglycemia. 1. DKA with persistent anion gap metabolic acidosis, poorly controlled type 1 diabetes mellitus with diabetic neuropathy ? Follows with Dr. Naik in the office and has had poor compliance with insulin pump noted. A1c 10.7% on admit, similar to last office A1c. Labs on admit consistent with DKA. Initial ABG with pH 6.93, pCO2 15, blood glucose 788 and bicarb on BMP was less than 5. Had good improvement on ABG initially with treatment with insulin drip. Course complicated by hypoxic respiratory failure and severe DIYA as noted below. He has now had persistent anion gap metabolic acidosis. Attempted to transition off insulin drip on evening of 01/08, but beta hydroxybutyrate was elevated at 3.1 on 01/09 so patient placed back on insulin drip. Beta hydroxybutyrate improved to 0.6 on 01/10. However, had episode on morning of 01/10 on breathing trial where he may have aspirated and was noted to have bilious contents in suctioning. Suspect patient has some degree of gastroparesis due to longstanding diabetes. Will treat with IV Reglan every 6 hours for now. Will keep patient n.p.o. and continue insulin drip. Continue to monitor BMP every 12 hours and beta-hydroxybutyrate daily. 2. Acute hypoxic respiratory failure ? Trackman following. Had worsening oxygen requirements on admit and chest x-ray showed severe bilateral pulmonary infiltrates. Intubated on morning of 01/07. Per aligner barrel and receiver, differential diagnosis includes pulmonary edema, aspiration event and ARDS. BNP elevated to 4000 but lower clinical suspicion for heart failure; echo with normal EF and no concerning findings. SBT completed on morning of 01/10 and unfortunately patient failed with concern for an aspiration event. Had bilateral rhonchi noted in upper airways bilaterally with slightly worsened oxygen requirements. Will continue to treat with IV cefepime and scheduled DuoNebs. IV steroids discontinued on 01/10. Ventilator management and further recommendations per aligner barrel and receiver. 3. Acute metabolic encephalopathy ? Trackman following as above. Presumed multifactorial from DKA with severe metabolic acidosis as well as respiratory failure. Remains intubated and sedated at this time. Has nonpurposeful movements but not following commands. Monitor. 4. Severe DIYA ? Nephrology following. Likely secondary to ATN primarily due to hypotension in setting of DKA with volume depletion. Baseline creatinine around 0.9. Creatinine 2.5 on admission and peaked at 5.32 on 01/08. Was anuric until evening of 01/08 despite high-dose diuretics. Was given doses of IV albumin and fortunately had significant improvement in urine output. Creatinine down trended slightly but then worsened again, most recent creatinine 5.70 on 01/10. Discussed with nephrology and suspect patient is dry given significant diuresis and n.p.o. status. Will give IV fluid bolus followed by maintenance IV fluids today. Continue to monitor daily BMP and urine output. 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 Appreciate further nephrology recommendations. 5. Acute on chronic anemia ? Hemoglobin 12.9 on admit, baseline appears to be around 13-14. Hemoglobin downtrending during hospitalization but this was thought to be secondary to hemodilution from severe volume overload. Had one hemoglobin read of 8.4 on morning of 01/09; however hemoglobin was up to 10 on afternoon of 01/09 and remains stable on morning of 01/10. No dark or bloody bowel movements noted. Will continue IV PPI twice daily for now. Monitor daily CBC. Will hold off on GI consult at this time. 6. Hyponatremia, resolved ? Sodium 122 on admit, corrected sodium 133 in setting of severe hyperglycemia. Resolved with IV fluids on admission. 7. Acute on chronic debility with history of left BKA ? PT/OT/case management following. Appreciate therapy recommendations. Chronic medical conditions: ? Class II obesity: BMI 37 on admit. Complicates hospital course, care and prognosis. ? History of PAD, hypertension, hyperlipidemia: Holding home amlodipine, lisinopril and statin. ? GERD: Treating with IV PPI twice daily as above. ? Hypothyroidism: Continue home Synthroid. DVT prophylaxis: Heparin subcu CODE STATUS: Full code, unverified Expected disposition: TBD Total clinical time spent by myself addressing the patient's medical issues, reviewing all the data, and collaborating with patient's care team: 35 minutes. Charges/Coding Visit Charges Inpatient E&M: 52014 Subs Hosp L2
[2025-01-10] MEDS: Lactated Ringers 1,000 ML 75 ML IV (12:03)
[2025-01-10] MEDS: Cefepime HCl 1 GM in 0.9% Normal Saline (50mL MB+) 50 ML IV (14:31)
[2025-01-10 16:50] LABS: Anion Gap 24 (5-15); BUN 99 mg/dL (4-19); BUN/Creat Ratio 16.7 RATIO (10-20); Calcium,Total 9.0 mg/dL (7.6-11.0); Carbon Dioxide 18.8 mmol/L (21.0-32.0); Chloride 96 mmol/L (98-108); Estimated Creatinine Clearance 14.87 ml/min (50-250); Glucose 54 mg/dL (70-99); Potassium 2.9 mmol/L (3.3-5.1)
[2025-01-10] MEDS: Potassium Chloride 10mEq/100mL 10 MEQ/100 ML IV.SOLN. 100 MEQ IV BOLUS ×4 (17:58→23:05)
[2025-01-10] MEDS: fentaNYL drip 100 ML 12.5 MCG CONT INF (18:06)
--- NOTE | 2025-01-10 20:23 | PCM.HOSP.N ---
Hospitalist Note Patient with consistent hypoglycemia, ongoing through the day and evening prior per discussion. Will d/c LR and change to D5NS. Insulin drip has been on hold.
[2025-01-10] MEDS: Dextrose 5%/0.9% NaCl 1,000 ML 75 ML IV (21:20)
[2025-01-10] MEDS: Propofol 10MG/Ml 1,000 MG/100 ML Bottle 23.2 MG CONT INF (23:56)
[2025-01-11] VITALS (40 sets, daily range): BP systolic 79–150; BP diastolic 48–85; PULSE 76–116; RESP 12–32; TEMP 36.6–37.7; O2SAT 30–100; BMI 22.4; BMI 23.2; BMI 23.1
[2025-01-11] MEDS: fentaNYL drip 100 ML 15 MCG CONT INF (01:00)
[2025-01-11] MEDS: Propofol 10MG/Ml 1,000 MG/100 ML Bottle 23.2 MG CONT INF (03:52)
[2025-01-11 04:23] LABS: Hematocrit 27.0 % (40-54); Hemoglobin 9.5 g/dL (13.0-16.5); Mean Corp Hgb Conc 35.2 g/dL (32-36); Mean Corpuscular Volume 82.6 fL (80-94); Mean Platelet Vol. 11.8 fl (6.2-12.0); POSITIVE COUNT YES; Platelet Count 89 K/mm3 (150-450); RBC Distribution Width CV 14.6 % (11.6-14.6); RBC Distribution Width SD 44.3 fl (35.1-43.9); Red Blood Count 3.27 M/mm3 (4.6-6.2); White Blood Count 10.4 K/mm3 (4.4-11.0)
[2025-01-11 04:40] LABS: Anion Gap 23 (5-15); BUN 99 mg/dL (4-19); BUN/Creat Ratio 16.0 RATIO (10-20); Calcium,Total 8.7 mg/dL (7.6-11.0); Carbon Dioxide 17.9 mmol/L (21.0-32.0); Chloride 94 mmol/L (98-108); Estimated Creatinine Clearance 14.39 ml/min (50-250); Glucose 217 mg/dL (70-99); Potassium 2.9 mmol/L (3.3-5.1)
[2025-01-11] MEDS: Heparin Injection (Vial) 5,000 UNIT/ML VIAL 5000 UNIT SC ×3 (06:05→21:55)
[2025-01-11] MEDS: 0.9% Saline Lock 10 ML Syringe IV ×3 (06:25→13:59)
[2025-01-11] MEDS: Insulin Lispro 100 UNIT in 0.9% Normal Saline (100mL Bag) 99 ML CONT INF (06:27)
--- NOTE | 2025-01-11 06:51 | PN.CC_ITS ---
Assessment & Plan Assessment/Plan (1) Acute hypoxic respiratory failure: (2) DKA (diabetic ketoacidoses): QUALIFIERS: Diabetes mellitus complication detail: with coma D iabetes mellitus type: type 1 Qualified Code(s): E10.11 - Type 1 diabetes mellitus with ketoacidosis with coma PLAN: Plan RECOMMENDATIONS: 1. Continue assist-control mode of mechanical ventilation. Continue to wean FiO2 and PEEP as tolerated. 2. Recheck beta hydroxybutyrate level and consider discontinuation of continuous insulin infusion if DKA resolved. 3. Continue dextrose containing IV fluids for now. 4. Continue fentanyl for pain control. Transition from propofol to Precedex to help facilitate weaning from ventilatory support. 5. Continue bronchodilators. 6. Continue empiric antimicrobials to complete 7 days of therapy. 7. Continue appropriate DVT and GI prophylaxis. IMPRESSIONS: 1. Acute hypoxemic respiratory failure Presumed secondary to underlying pneumonia with concern for inability to compensate for metabolic demands of DKA. The patient will be continued on assist-control mode mechanical ventilation. Continue to wean FiO2 and PEEP as tolerated. Continue current sedation regimen, with tentative plans to proceed with spontaneous awakening and breathing trials daily, as tolerated. Antimicrobials will be continued as ordered to complete 7 days of therapy. 2. Diabetic ketoacidosis Continue insulin infusion along with dextrose containing IV fluids pending recheck of beta hydroxybutyrate level. 3. Acute kidney injury Most likely secondary to ischemic ATN in the setting of DKA and hypotension. Nephrology is currently following to assist with medical management. 4. Chronic debility/history of hypertension/hyperlipidemia/peripheral arterial disease/GERD/hypothyroidism Complicates care, management, recovery and prognosis. Continue supportive measures as noted above. Continue to hold nutritional support pending resolution of DKA. TIME: 34 minutes of critical care time, independent of procedures, was spent addressing the patient's acute hypoxemic respiratory failure, diabetic ketoacidosis, acute kidney injury, review of all data and collaboration with the care team. Subjective Subjective The patient was seen and examined at the bedside this morning. Events from the last 24 hours have been reviewed. The patient continues to have low-grade fevers but remains otherwise hemodynamically stable on assist-control mode mechanical ventilation with an FiO2 requirement of 30% and PEEP of 5. The patient continues to become agitated and restless with weaning of sedation. In addition, he continues to have significant endotracheal tube secretions. Therefore, spontaneous breathing trial was not completed. The patient is documented to be overall net +3 L for the hospitalization. Due to persistent hypoglycemia, the patient was initiated on dextrose containing IV fluids. White blood cell count is normal. Hemoglobin is stable at 9.5 g/dL. Arterial blood gas was notable for a pH of 7.34 with a pCO2 of 36 and pO2 of 98. Chemistry profile was notable for a potassium of 2.9, bicarbonate of 18, BUN of 99 and creatinine of 6.15. Objective Data Objective Data The patient's most recent lab work, culture data and imaging studies have all been personally reviewed. Blood cultures are pending. Respiratory viral panel was negative. Strep and urine Legionella antigens were negative. Sputum culture has only demonstrated growth of presumptive Leanne albicans. Vital Signs: Vital Signs Temp Pulse Resp BP Pulse Ox O2 Del Method O2 Flow Rate 99.7 F H 111 H 17 95/66 98 Mechanical Ventilator 15 01/11/25 05:00 01/11/25 06:44 01/11/25 06:44 01/11/25 05:00 01/11/25 06:44 01/11/25 05:00 01/06/25 22:15 FiO2 30 01/11/25 05:00 Oxygen Flow Rate (L/min) 15 Oxygen Delivery Method Mechanical Ventilator Weight: 162 lb 0.636 oz Body Mass Index (BMI) 23.2 Intake & Output: Intake and Output for Last 24 Hours 01/09/25 01/10/25 01/11/25 23:59 23:59 23:59 Intake Total 1783.22 / 1821.42 3615.08 / 3631.63 356.38 / 356.38 Output Total 5725 / 5725 1052 / 1052 0 / 0 Balance -3941.78 / -3903.58 2563.08 / 2579.63 356.38 / 356.38 Lab / Micro Data Attestation: I reviewed the patient's lab results. 01/11/25 04:05 01/11/25 04:05 Labs: Laboratory Results - last 24 hr 01/10/25 05:24: b-Hydroxybutyric mmol/L 0.6 H 01/10/25 06:43: POC Glucose 109 H 01/10/25 07:56: POC Glucose 92 01/10/25 09:20: POC Glucose 89 01/10/25 10:46: POC Glucose 82 01/10/25 12:09: POC Glucose 68 L 01/10/25 12:52: POC Glucose 101 01/10/25 13:55: POC Glucose 82 01/10/25 16:00: Sodium 138, Potassium 2.9 L, Chloride 96 L, Carbon Dioxide 18.8 L, Anion Gap 24 H, BUN 99 H, Creatinine 5.95 H, Estim Creat Clear Calc 14.87 L, Est GFR (MDRD) Non-Af 11 L, BUN/Creatinine Ratio 16.7, Glucose 54 L, Calcium 9.0 01/10/25 17:16: POC Glucose 34 L* 01/10/25 17:55: POC Glucose 101 01/10/25 19:00: POC Glucose 67 L 01/10/25 19:45: POC Glucose 88 01/10/25 21:26: POC Glucose 82 01/10/25 23:09: POC Glucose 107 H 01/11/25 01:35: POC Glucose 130 H 01/11/25 03:45: POC Glucose 195 H 01/11/25 04:05: WBC 10.4, RBC 3.27 L, Hgb 9.5 L, Hct 27.0 L, MCV 82.6, MCH 29.1, MCHC 35.2, RDW Std Deviation 44.3 H, RDW Coeff of Candace 14.6, Plt Count 89 L, MPV 11.8, Sodium 135, Potassium 2.9 L, Chloride 94 L, Carbon Dioxide 17.9 L, Anion Gap 23 H, BUN 99 H, Creatinine 6.15 H, Estim Creat Clear Calc 14.39 L, Est GFR (MDRD) Non-Af 10 L, BUN/Creatinine Ratio 16.0, Glucose 217 H, Calcium 8.7 Micro: Microbiology 01/07/25 Unknown Sputum, Induced/Lukens Gram Stain - Final 01/07/25 Unknown Sputum, Induced/Lukens Respiratory Culture - Final Presumptive C albicans 01/06/25 16:28 Blood Culture (Wb) - Anticubital Left Blood Culture - Preliminary No growth in 48 hours. 01/06/25 16:41 Blood Culture (Wb) - Right Hand Blood Culture - Preliminary No growth in 48 hours. 01/07/25 18:45 Urine Catheter - Brady Legionella Antigen - Final 01/07/25 18:45 Urine Catheter - Brady Streptococcus pneumoniae Antigen (M - Final 01/07/25 16:30 Nasal Secretion MRSA (PCR) - Final 01/07/25 09:32 Mucosa - Nasopharyngeal Respiratory Panel (PCR) - Final 01/06/25 22:15 Nasal Secretion MRSA (PCR) - Final ABG Data ABG results: ABG 01/06/25 01/09/25 14:44 10:21 Specimen Type JULIO ART Sample Site Not entered R Radial pH 7.39 Bicarbonate Actual 23.1 Total CO2 24 Base Excess -2 O2 Saturation 96 O2 % 35.0 ABG pCO2 38.3 ABG pO2 85 Nito Test Positive VBG pH 7.08 L* VBG pO2 145 H VBG HCO3 3 L VBG Total CO2 < 5 L VBG O2 Sat (Calc) 98 H VBG Base Excess -27 L POC Mix VBG pCO2 Pt Tmp 9.4 L* Respiration Rate 16 O2 Delivery Device Not entered Adult Vent Vent Mode AC/vc+ Tidal Volume 400.0 POC PEEP 5 Crit Call To/Read Back Yes Blood Gas Notified Whom glauthier Blood Gas Notified Time 14:46:50 Radiography Diagnostic Testing: Radiology Impression Chest X-Ray 01/10/25 09:25 IMPRESSION: Tubes and lines in position. Central vascularity is increased, improved. There are increased interstitial markings with no focal consolidation. [facility] Rhythm Strip Rhythm Strip: Sinus Tach Rate: 105 Physical Exam Const Constitutional Narrative: Intubated, sedated and mechanically ventilated. No ventilator dyssynchrony noted. General Appearance: patient mechanically ventilated HEENT normocephalic and head/scalp atraumatic Mouth: endotracheal tube in place and OG tube in place Eyes PERRL, EOMs intact bilaterally and conjunctivae normal Neck supple General: trachea midline Chest inspection of chest normal Resp Auscultation: rhonchi and diminished lung sounds; Negative for rales or wheezes Cardio regular rate and regular rhythm GI soft to palpation and non-tender Extremity Extremity Narrative: Left BKA Neuro Sensorium / Orientation: sedated on vent Charges/Coding Procedures Hospitalists Procedures: [id number] Critical Care 1st Hr
[2025-01-11 07:28] LABS: Allen Test Positive; Base Excess -6 mmol/L (-2 to +2); FI02 30.0; PEEP 5; PO2 98 mmHG (75-100); RR 16; SITE L Radial; SO2 97 % (95-99)
[2025-01-11] MEDS: Potassium Chloride 10mEq/100mL 10 MEQ/100 ML IV.SOLN. 100 MEQ IV BOLUS ×4 (07:51→11:20)
[2025-01-11] MEDS: dexMEDEtomidine 400 MCG in 0.9% Normal Saline (100mL Bag) 96 ML 9.2 MCG CONT INF (07:56)
[2025-01-11 08:01] LABS: BETA-HYDROXYBUTYRATE 1.8 mmol/L (0.0-0.3)
[2025-01-11] MEDS: fentaNYL drip 100 ML 20 MCG CONT INF ×3 (08:45→19:12)
--- NOTE | 2025-01-11 09:00 | RAD_ITS ---
PROCEDURE: ABDOMEN SINGLE VIEW (PORTABLE) 01/11/2025 REASON FOR EXAM: EMESIS TECHNIQUE: ABDOMEN SINGLE VIEW (PORTABLE) COMPARISON: None FINDINGS: A nasogastric tube is seen with the tip in the fundal portion of the stomach. The gas pattern is unremarkable. No evidence of obstruction. There is evidence of calcification of the vas deferens. A rectal probe is seen. RAD/Abdomen Single View (Portable) IMPRESSION: Nasogastric tube is seen with the tip in the fundal portion of the stomach. Th e gas pattern is unremarkable. Reading Location: [id number]
[2025-01-11 09:11] LABS: Magnesium 1.7 mg/dL (1.5-2.2)
[2025-01-11] MEDS: Chlorhexidine 15 ML PO ×2 (09:48→21:55)
[2025-01-11] MEDS: CHLORHEXIDINE GLUC 2% CLOTH 1 EACH TOWELETTE TOPICAL (09:48)
[2025-01-11] MEDS: Pantoprazole Sodium 40 MG in 0.9% Normal Saline (100mL MB+) 100 ML 330 MG IV ×2 (09:51→21:56)
--- NOTE | 2025-01-11 12:09 | PN.HOSP_ITS ---
Reason for Visit Reason for Visit: Diagnoses Type 1 diabetes mellitus with ketoacidosis with coma (01/06/25) Type 2 diabetes mellitus with ketoacidosis without coma (01/06/25) Acute respiratory failure with hypoxia (01/06/25) Acute kidney failure, unspecified (01/06/25) Altered mental status, unspecified (01/06/25) Subjective Subjective Saw patient at bedside this morning. Patient remains intubated and sedated and not following commands. Objective Data Objective Data Vital Signs: Vital Signs Temp Pulse Resp BP Pulse Ox O2 Del Method O2 Flow Rate 99.9 F H 82 17 101/70 99 Mechanical Ventilator 15 01/11/25 10:00 01/11/25 11:56 01/11/25 11:56 01/11/25 11:00 01/11/25 11:56 01/11/25 11:00 01/06/25 22:15 FiO2 30 01/11/25 07:00 Oxygen Flow Rate (L/min) 15 Oxygen Delivery Method Mechanical Ventilator Weight: 73.5 kg Body Mass Index (BMI) 23.2 Intake & Output: Intake and Output for Last 24 Hours 01/09/25 01/10/25 01/11/25 23:59 23:59 23:59 Intake Total 1783.22 / 1821.42 3615.08 / 3631.63 1683.65 / 1683.65 Output Total 5725 / 5725 1052 / 1052 1135 / 1135 Balance -3941.78 / -3903.58 2563.08 / 2579.63 548.65 / 548.65 Lab / Micro Data 01/11/25 04:05 01/11/25 04:05 Labs: Laboratory Results - last 24 hr 01/10/25 12:09: POC Glucose 68 L 01/10/25 12:52: POC Glucose 101 01/10/25 13:55: POC Glucose 82 01/10/25 16:00: Sodium 138, Potassium 2.9 L, Chloride 96 L, Carbon Dioxide 18.8 L, Anion Gap 24 H, BUN 99 H, Creatinine 5.95 H, Estim Creat Clear Calc 14.87 L, Est GFR (MDRD) Non-Af 11 L, BUN/Creatinine Ratio 16.7, Glucose 54 L, Calcium 9.0 01/10/25 17:16: POC Glucose 34 L* 01/10/25 17:55: POC Glucose 101 01/10/25 19:00: POC Glucose 67 L 01/10/25 19:45: POC Glucose 88 01/10/25 21:26: POC Glucose 82 01/10/25 23:09: POC Glucose 107 H 01/11/25 01:35: POC Glucose 130 H 01/11/25 03:45: POC Glucose 195 H 01/11/25 04:05: WBC 10.4, RBC 3.27 L, Hgb 9.5 L, Hct 27.0 L, MCV 82.6, MCH 29.1, MCHC 35.2, RDW Std Deviation 44.3 H, RDW Coeff of Candace 14.6, Plt Count 89 L, MPV 11.8, Sodium 135, Potassium 2.9 L, Chloride 94 L, Carbon Dioxide 17.9 L, Anion Gap 23 H, BUN 99 H, Creatinine 6.15 H, Estim Creat Clear Calc 14.39 L, Est GFR (MDRD) Non-Af 10 L, BUN/Creatinine Ratio 16.0, Glucose 217 H, Calcium 8.7, P hosphorus 4.9 H, Magnesium 1.7, b-Hydroxybutyric mmol/L 1.8 H 01/11/25 04:54: POC Glucose 191 H 01/11/25 06:20: POC Glucose 226 H 01/11/25 07:38: POC Glucose 204 H 01/11/25 08:40: POC Glucose 268 H 01/11/25 09:47: POC Glucose 239 H 01/11/25 10:50: POC Glucose 227 H Micro: Microbiology 01/07/25 Unknown Sputum, Induced/Lukens Gram Stain - Final 01/07/25 Unknown Sputum, Induced/Lukens Respiratory Culture - Final Presumptive C albicans 01/06/25 16:28 Blood Culture (Wb) - Anticubital Left Blood Culture - Preliminary No growth in 48 hours. 01/06/25 16:41 Blood Culture (Wb) - Right Hand Blood Culture - Preliminary No growth in 48 hours. 01/07/25 18:45 Urine Catheter - Brady Legionella Antigen - Final 01/07/25 18:45 Urine Catheter - Brady Streptococcus pneumoniae Antigen (M - Final 01/07/25 16:30 Nasal Secretion MRSA (PCR) - Final 01/07/25 09:32 Mucosa - Nasopharyngeal Respiratory Panel (PCR) - Final 01/06/25 22:15 Nasal Secretion MRSA (PCR) - Final ABG Data ABG results: ABG 01/11/25 07:25 Specimen Type ART Sample Site L Radial pH 7.34 L Bicarbonate Actual 19.4 L Total CO2 21 Base Excess -6 L O2 Saturation 97 O2 % 30.0 ABG pCO2 36.1 ABG pO2 98 Nito Test Positive Respiration Rate 16 O2 Delivery Device Adult Vent Vent Mode PRVC Tidal Volume 400.0 POC PEEP 5 Radiography Diagnostic Testing: Radiology Impression KUB X-Ray 01/11/25 09:00 IMPRESSION: Nasogastric tube is seen with the tip in the fundal portion of the stomach. The gas pattern is unremarkable. Reading Location: [id number] Rhythm Strip Rhythm Strip: Sinus Tach Rate: 105 Physical Exam Const Constitutional Narrative: Intubated and sedated. Nonpurposeful movement noted, not following commands. HEENT head/scalp atraumatic HEENT Narrative: ET tube in place. Neck supple Resp Resp Narrative: Diminished breath sounds bilaterally with mild to moderate rhonchi noted in upper airways bilaterally. Cardio regular rate, regular rhythm and no murmurs GI soft to palpation and non-distended Extremity normal to inspection Assessment & Plan Assessment/Plan (1) Acute hypoxic respiratory failure: (2) DKA (diabetic ketoacidoses): QUALIFIERS: Diabetes mellitus type: type 1 Diabetes mellitus complication detail: with coma Qualified Code(s): E10.11 - Type 1 diabetes mellitus with ketoacidosis with coma PLAN: Plan Patient is a 49-year-old male who presented to [facility] ED on 01/06/2025 with altered mental status and hyperglycemia. 1. DKA with persistent anion gap metabolic acidosis, poorly controlled type 1 diabetes mellitus with diabetic neuropathy ? Follows with Dr. Naik in the office and has had poor compliance with insulin pump noted. A1c 10.7% on admit, similar to last office A1c. Labs on admit consistent with DKA. Initial ABG with pH 6.93, pCO2 15, blood glucose 788 and bicarb on BMP was less than 5. Had good improvement on ABG initially with treatment with insulin drip. Course complicated by hypoxic respiratory failure and severe DIYA as noted below. He has now had persistent anion gap metabolic acidosis. Attempted to transition off insulin drip on evening of 01/08, but beta hydroxybutyrate was elevated at 3.1 on 01/09 so patient placed back on insulin drip. Beta-hydroxybutyrate improved but has not resolved; patient will remain on insulin drip with n.p.o. status for now. Treated with IV Reglan every 8 hours for suspected gastroparesis due to poorly controlled diabetes, especially given concern for aspiration event on 01/10 as noted below. Continue to monitor BMP and beta hydroxybutyrate daily. 2. Acute hypoxic respiratory failure ? Planner/Scheduler following. Had worsening oxygen requirements on admit and chest x-ray showed severe bilateral pulmonary infiltrates. Intubated on morning of 01/07. Per coin rolling machine operator, differential diagnosis includes pulmonary edema, aspiration event and ARDS. BNP elevated to 4000 but lower clinical suspicion for heart failure; echo with normal EF and no concerning findings. SBT completed on morning of 01/10 and unfortunately patient failed with concern for an aspiration event. Had bilious contents suctioned from ET tube and was suspected this may be due to gastroparesis from poorly controlled diabetes as above. Treating with Reglan as above. Continue to treat with IV cefepime and scheduled DuoNebs. Oxygen requirements remain low but patient with significant agitation with spontaneous awakening trials. Ventilator management and further recommendations per coin rolling machine operator. 3. Acute metabolic encephalopathy ? Planner/Scheduler following as above. Presumed multifactorial from DKA with severe metabolic acidosis as well as respiratory failure. Remains intubated and sedated at this time. Has nonpurposeful movements but not following commands. Monitor. 4. Severe DIYA ? Nephrology following. Likely secondary to ATN primarily due to hypotension in setting of DKA with volume depletion. Baseline creatinine around 0.9. Creatinine 2.5 on admission. Significantly worsened initially and patient was anuric. However, with IV albumin and high-dose diuretics patient began to have significant urine output on 01/08. Unfortunately, creatinine only improved slightly and then has since been steadily worsening with minimal urine output. Most recent creatinine 6.15 on 01/11. Discussed with nephrology and patient will be initiated on RIB BENDER. Planner/Scheduler placed temporary HD line on 01/11 and plan is for dialysis to be initiated later this evening. Appreciate further nephrology recommendations. 5. Acute on chronic anemia ? Hemoglobin 12.9 on admit, baseline appears to be around 13-14. Hemoglobin downtrending during hospitalization but this was thought to be secondary to hemodilution from severe volume overload. Had one hemoglobin read of 8.4 on morning of 01/09; however hemoglobin was up to 10 on afternoon of 01/09 and has remained stable. No dark or bloody bowel movements noted. Will continue IV PPI twice daily for now. Monitor daily CBC. Will hold off on GI consult at this time. 6. Hyponatremia, resolved ? Sodium 122 on admit, corrected sodium 133 in setting of severe hyperglycemia. Resolved with IV fluids on admission. 7. Acute on chronic debility with history of left BKA ? PT/OT/case management following. Appreciate therapy recommendations. Chronic medical conditions: ? Class II obesity: BMI 37 on admit. Complicates hospital course, care and prognosis. ? History of PAD, hypertension, hyperlipidemia: Holding home amlodipine, lisinopril and statin. ? GERD: Treating with IV PPI twice daily as above. ? Hypothyroidism: Continue home Synthroid. DVT prophylaxis: Heparin subcu CODE STATUS: Full code, unverified Expected disposition: TBD Total clinical time spent by myself addressing the patient's medical issues, reviewing all the data, and collaborating with patient's care team: 35 minutes. Charges/Coding Visit Charges Inpatient E&M: 33178 Subs Hosp L2
[2025-01-11] MEDS: dexMEDEtomidine 400 MCG in 0.9% Normal Saline (100mL Bag) 96 ML 27.6 MCG CONT INF (12:33)
--- NOTE | 2025-01-11 12:35 | RAD_ITS ---
PROCEDURE: CXR FOR LINE PLACEMENT 01/11/2025 REASON FOR EXAM: RIJ TEMP DIALYSIS LINE TECHNIQUE: CXR FOR LINE PLACEMENT COMPARISON: Prior study dated January 10, 2025. FINDINGS: A right-sided tubular jugular venous catheter has been placed with tip in the proximal portion of the superior vena cava. The endotracheal tube and orogastric tubes are unchanged. A right-sided PICC line catheter has been placed with the tip at the junction of the superior vena cava and right atrium Small left pleural effusion with left basilar infiltration and/or atelectasis. RAD/CXR for Line Placement IMPRESSION: The tip of the right internal jugular venous catheter is at the junction of the superior vena cava and right atrium. A right-sided PICC line catheter is seen with the tip at the junction of the argueta perior vena cava and right atrium. The endotracheal tube and nasogastric tube are unchanged. Reading Location: [facility]
--- NOTE | 2025-01-11 12:47 | PCM.OP.PRO2 ---
Procedures Hospitalists Procedures: [id number] Insert Non-tunnel CV Cath Non-invasive Procedural Procedure Information Date of Procedure: 01/11/25 Description of procedure: Temporary Hemodialysis Catheter Indication: Acute kidney injury Consent was obtained from: Family A time-out was completed verifying correct patient, procedure, site, positioning, and special equipment if applicable. The patient was placed in a dependent position appropriate for hemodialysis line placement based on the vein to be cannulated. The patient's right neck was prepped and draped in the sterile fashion. 1% Lidocaine was used and emphasized the surrounding skin area. A 16 cm catheter was introduced into the right internal jugular vein, following sequential dilations, using the Seldinger technique and under ultrasound guidance. The catheter was threaded smoothly over the guidewire and appropriate blood return was obtained. Each lumen of the catheter was evacuated of air and flushed with sterile saline. The catheter was then sutured in place to the skin and a sterile dressing applied. Chest x-ray to confirm appropriate positioning is pending. ULTRASOUND GUIDANCE STATEMENT (Vascular Access): I performed an ultrasound image acquisition and interpretation for needle placement during the procedure. The vessel was identified and was found to be free of thrombosis by compression technique. A safe point of entry was marked at the skin in an angle for axis was determined. The needle was guided by obtaining free-flowing fluid and by real-time visualization.
[2025-01-11] MEDS: PureFlow B 4K Dialysis Soln 1 BAG 6 BAG PF (13:58)
[2025-01-11] MEDS: 0.9% Normal Saline 1,000 ML IV.SOLN. 1000 ML OPERA.SITE (14:00)
[2025-01-11] MEDS: Dextrose 5%/0.9% NaCl 1,000 ML 75 ML IV (14:58)
--- NOTE | 2025-01-11 15:11 | PN.RENAL_ITS ---
Subjective Subjective not much urine output Objective Data Objective Data Vital Signs: Vital Signs Temp Pulse Resp BP Pulse Ox O2 Del Method O2 Flow Rate 99.1 F 76 15 97/65 99 Mechanical Ventilator 15 01/11/25 13:39 01/11/25 15:00 01/11/25 15:00 01/11/25 15:00 01/11/25 15:00 01/11/25 15:00 01/06/25 22:15 FiO2 30 01/11/25 15:00 Oxygen Flow Rate (L/min) 15 Oxygen Delivery Method Mechanical Ventilator Weight: 73.5 kg Body Mass Index (BMI) 23.1 Intake & Output: Intake and Output for Last 24 Hours 01/09/25 01/10/25 01/11/25 23:59 23:59 23:59 Intake Total 1783.22 / 1821.42 3615.08 / 3631.63 2157.89 / 2157.89 Output Total 5725 / 5725 1052 / 1052 1145 / 1145 Balance -3941.78 / -3903.58 2563.08 / 2579.63 1012.89 / 1012.89 Lab / Micro Data 01/11/25 04:05 01/11/25 04:05 Labs: Laboratory Results - last 24 hr 01/10/25 16:00: Sodium 138, Potassium 2.9 L, Chloride 96 L, Carbon Dioxide 18.8 L, Anion Gap 24 H, BUN 99 H, Creatinine 5.95 H, Estim Creat Clear Calc 14.87 L, Est GFR (MDRD) Non-Af 11 L, BUN/Creatinine Ratio 16.7, Glucose 54 L, Calcium 9.0 01/10/25 17:16: POC Glucose 34 L* 01/10/25 17:55: POC Glucose 101 01/10/25 19:00: POC Glucose 67 L 01/10/25 19:45: POC Glucose 88 01/10/25 21:26: POC Glucose 82 01/10/25 23:09: POC Glucose 107 H 01/11/25 01:35: POC Glucose 130 H 01/11/25 03:45: POC Glucose 195 H 01/11/25 04:05: WBC 10.4, RBC 3.27 L, Hgb 9.5 L, Hct 27.0 L, MCV 82.6, MCH 29.1, MCHC 35.2, RDW Std Deviation 44.3 H, RDW Coeff of Candace 14.6, Plt Count 89 L, MPV 11.8, Sodium 135, Potassium 2.9 L, Chloride 94 L, Carbon Dioxide 17.9 L, Anion Gap 23 H, BUN 99 H, Creatinine 6.15 H, Estim Creat Clear Calc 14.39 L, Est GFR (MDRD) Non-Af 10 L, BUN/Creatinine Ratio 16.0, Glucose 217 H, Calcium 8.7, P hosphorus 4.9 H, Magnesium 1.7, b-Hydroxybutyric mmol/L 1.8 H 01/11/25 04:54: POC Glucose 191 H 01/11/25 06:20: POC Glucose 226 H 01/11/25 07:38: POC Glucose 204 H 01/11/25 08:40: POC Glucose 268 H 01/11/25 09:47: POC Glucose 239 H 01/11/25 10:50: POC Glucose 227 H 01/11/25 12:02: POC Glucose 216 H 01/11/25 14:06: POC Glucose 152 H Micro: Microbiology 01/07/25 Unknown Sputum, Induced/Lukens Gram Stain - Final 01/07/25 Unknown Sputum, Induced/Lukens Respiratory Culture - Final Presumptive C albicans 01/06/25 16:28 Blood Culture (Wb) - Anticubital Left Blood Culture - Preliminary No growth in 48 hours. 01/06/25 16:41 Blood Culture (Wb) - Right Hand Blood Culture - Preliminary No growth in 48 hours. 01/07/25 18:45 Urine Catheter - Brady Legionella Antigen - Final 01/07/25 18:45 Urine Catheter - Brady Streptococcus pneumoniae Antigen (M - Final 01/07/25 16:30 Nasal Secretion MRSA (PCR) - Final 01/07/25 09:32 Mucosa - Nasopharyngeal Respiratory Panel (PCR) - Final 01/06/25 22:15 Nasal Secretion MRSA (PCR) - Final ABG Data ABG results: ABG 01/11/25 07:25 Specimen Type ART Sample Site L Radial pH 7.34 L Bicarbonate Actual 19.4 L Total CO2 21 Base Excess -6 L O2 Saturation 97 O2 % 30.0 ABG pCO2 36.1 ABG pO2 98 Nito Test Positive Respiration Rate 16 O2 Delivery Device Adult Vent Vent Mode PRVC Tidal Volume 400.0 POC PEEP 5 Radiography Diagnostic Testing: Radiology Impression KUB X-Ray 01/11/25 09:00 IMPRESSION: Nasogastric tube is seen with the tip in the fundal portion of the stomach. The gas pattern is unremarkable. Reading Location: [facility] Chest X-Ray 01/11/25 12:35 IMPRESSION: The tip of the right internal jugular venous catheter is at the junction of the superior vena cava and right atrium. A right-sided PICC line catheter is seen with the tip at the junction of the superior vena cava and right atrium. The endotracheal tube and nasogastric tube are unchanged. Reading Location: [id number] Rhythm Strip Rhythm Strip: Sinus Tach Rate: 105 Physical Exam Narrative On ventilator support, no acute distress S1, S2, RRR Breath sounds clear anteriorly. No rales or rhonchi Abdomen soft, nondistended, positive bowel sounds No edema, left BKA, no edema to thighs Indwelling Brady with yellow urine in bag Assessment & Plan Assessment/Plan (1) DIYA (acute kidney injury): (2) Altered mental status: (3) Acute hypoxic respiratory failure: PLAN: Plan This is a 49-year-old male with past medical history significant for diabetes mellitus type 1, hypothyroidism, alcohol abuse presented to the ER yesterday with altered mental status changes, high glucose, admitted for DKA with severe high anion gap metabolic acidosis, started on insulin drip, received multiple liters of IV fluids. - Initially anuric DIYA likely secondary to ATN, hypotension, DKA. Patient has normal baseline creatinine. Renal ultrasound without any hydronephrosis. Massive nephrotic range proteinuria, presumably this is related to diabetes (A1C ranging 10-12% April 2023 to present). He had serologies done before which were negative. Initially creatinine improved, however over the last 2 days, creatinine has been worsening. BUN almost 100. Chest x-ray looks somewhat wet. Not much urine output. Will need renal replacement therapy. Discussed with ICU attending. Will initiate dialysis today. Hypokalemia. Dialysis on 4K bath.
[2025-01-11] MEDS: Propofol 10MG/Ml 1,000 MG/100 ML Bottle 4.4 MG CONT INF (15:53)
[2025-01-11] MEDS: Cefepime HCl 1 GM in 0.9% Normal Saline (50mL MB+) 50 ML IV (15:56)
[2025-01-11] MEDS: Dexmedetomidine 1,000 mcg in 0.9% NS 240 mL 27.6 MCG CONT INF (17:00)
[2025-01-11 18:10] LABS: BETA-HYDROXYBUTYRATE 0.2 mmol/L (0.0-0.3)
[2025-01-11] MEDS: Insulin Glargine-YFGN 100 UNIT/ML Pen 15 UNIT SC (18:35)
--- NOTE | 2025-01-11 19:12 | PN.CARD_ITS ---
Subjective Subjective Patient seen and evaluated. Objective Data Vital Signs: Vital Signs Temp Pulse Resp BP Pulse Ox O2 Del Method O2 Flow Rate 98.7 F 76 17 128/81 H 97 Mechanical Ventilator 15 01/11/25 18:00 01/11/25 18:00 01/11/25 18:00 01/11/25 18:00 01/11/25 18:00 01/11/25 18:00 01/06/25 22:15 FiO2 30 01/11/25 15:47 Oxygen Flow Rate (L/min) 15 Oxygen Delivery Method Mechanical Ventilator Weight: 161 lb 13.109 oz Body Mass Index (BMI) 23.1 Intake & Output: Intake and Output for Last 24 Hours 01/09/25 01/10/25 01/11/25 23:59 23:59 23:59 Intake Total 1783.22 / 1821.42 3615.08 / 3631.63 2718.04 / 2718.04 Output Total 5725 / 5725 1052 / 1052 1520 / 1520 Balance -3941.78 / -3903.58 2563.08 / 2579.63 1198.04 / 1198.04 Lab / Micro Data 01/11/25 04:05 01/11/25 04:05 Labs: Laboratory Results - last 24 hr 01/10/25 19:00: POC Glucose 67 L 01/10/25 19:45: POC Glucose 88 01/10/25 21:26: POC Glucose 82 01/10/25 23:09: POC Glucose 107 H 01/11/25 01:35: POC Glucose 130 H 01/11/25 03:45: POC Glucose 195 H 01/11/25 04:05: WBC 10.4, RBC 3.27 L, Hgb 9.5 L, Hct 27.0 L, MCV 82.6, MCH 29.1, MCHC 35.2, RDW Std Deviation 44.3 H, RDW Coeff of Candace 14.6, Plt Count 89 L, MPV 11.8, Sodium 135, Potassium 2.9 L, Chloride 94 L, Carbon Dioxide 17.9 L, Anion Gap 23 H, BUN 99 H, Creatinine 6.15 H, Estim Creat Clear Calc 14.39 L, Est GFR (MDRD) Non-Af 10 L, BUN/Creatinine Ratio 16.0, Glucose 217 H, Calcium 8.7, P hosphorus 4.9 H, Magnesium 1.7, b-Hydroxybutyric mmol/L 1.8 H 01/11/25 04:54: POC Glucose 191 H 01/11/25 06:20: POC Glucose 226 H 01/11/25 07:38: POC Glucose 204 H 01/11/25 08:40: POC Glucose 268 H 01/11/25 09:47: POC Glucose 239 H 01/11/25 10:50: POC Glucose 227 H 01/11/25 12:02: POC Glucose 216 H 01/11/25 14:06: POC Glucose 152 H 01/11/25 15:06: POC Glucose 145 H 01/11/25 16:18: POC Glucose 126 H 01/11/25 17:17: POC Glucose 114 H 01/11/25 17:38: b-Hydroxybutyric mmol/L 0.2 01/11/25 18:21: POC Glucose 108 H ABG Data ABG results: ABG 01/11/25 07:25 Specimen Type ART Sample Site L Radial pH 7.34 L Bicarbonate Actual 19.4 L Total CO2 21 Base Excess -6 L O2 Saturation 97 O2 % 30.0 ABG pCO2 36.1 ABG pO2 98 Nito Test Positive Respiration Rate 16 O2 Delivery Device Adult Vent Vent Mode PRVC Tidal Volume 400.0 POC PEEP 5 Rhythm Strip Rhythm Strip: Sinus Tach Rate: 105 Cardiology Labs/Tests 01/11/25 04:05: WBC 10.4, RBC 3.27 L, Hgb 9.5 L, Hct 27.0 L, MCV 82.6, MCH 29.1, MCHC 35.2, Plt Count 89 L, MPV 11.8, Sodium 135, Potassium 2.9 L, Chloride 94 L, Carbon Dioxide 17.9 L, Anion Gap 23 H, BUN 99 H, Creatinine 6.15 H, Est GFR (MDRD) Non-Af 10 L, BUN/Creatinine Ratio 16.0, Glucose 217 H, Calcium 8.7, P hosphorus 4.9 H, Magnesium 1.7 01/11/25 07:25: pH 7.34 L, Bicarbonate Actual 19.4 L, Base Excess -6 L, O2 Saturation 97, ABG pCO2 36.1, ABG pO2 98, Nito Test Positive Rhythm: EKG: ECHO: Stress Test: Cardiac Cath: PCI: CT Surgery: Holter monitor: EPS: PPM: CXR: Chest CT Scan: Radiography Diagnostic Testing: Radiology Impression KUB X-Ray 01/11/25 09:00 IMPRESSION: Nasogastric tube is seen with the tip in the fundal portion of the stomach. The gas pattern is unremarkable. Reading Location: [facility] Chest X-Ray 01/11/25 12:35 IMPRESSION: The tip of the right internal jugular venous catheter is at the junction of the superior vena cava and right atrium. A right-sided PICC line catheter is seen with the tip at the junction of the superior vena cava and right atrium. The endotracheal tube and nasogastric tube are unchanged. Reading Location: [facility] Physical Exam Const Constitutional Narrative: Intubated and sedated. Nonpurposeful movement noted, not following commands. HEENT head/scalp atraumatic HEENT Narrative: ET tube in place. Neck supple Resp Resp Narrative: Diminished breath sounds bilaterally with mild to moderate rhonchi noted in upper airways bilaterally. Cardio regular rate, regular rhythm and no murmurs GI soft to palpation and non-distended Extremity normal to inspection Assessment & Plan Assessment/Plan (1) Acute hypoxic respiratory failure: PLAN: Patient's chest x-ray shows some slight improvement in the diffuse opacities which appear to be clinically more consistent with pneumonitis than pulmonary edema. His echocardiogram demonstrated preserved ejection fraction. His rhythm appears to be stable. From a cardiac standpoint we will continue supportive care. No major interventions at this time. Will sign off please reconsult as necessary.
[2025-01-12] VITALS (42 sets, daily range): BP systolic 75–186; BP diastolic 52–95; PULSE 75–103; RESP 14–22; TEMP 36.6–37.6; O2SAT 30–100; BMI 24.1; BMI 24.0
[2025-01-12] MEDS: fentaNYL drip 100 ML 20 MCG CONT INF ×5 (00:47→22:10)
[2025-01-12] MEDS: Dexmedetomidine 1,000 mcg in 0.9% NS 240 mL 27.6 MCG CONT INF ×3 (00:47→19:35)
[2025-01-12] MEDS: Dextrose 5%/0.9% NaCl 1,000 ML 75 ML IV (04:52)
[2025-01-12 05:41] LABS: Hematocrit 26.0 % (40-54); Hemoglobin 9.1 g/dL (13.0-16.5); Mean Corp Hgb Conc 35.0 g/dL (32-36); Mean Corpuscular Volume 82.3 fL (80-94); Mean Platelet Vol. 12.1 fl (6.2-12.0); Platelet Count 113 K/mm3 (150-450); RBC Distribution Width CV 14.3 % (11.6-14.6); RBC Distribution Width SD 42.6 fl (35.1-43.9); Red Blood Count 3.16 M/mm3 (4.6-6.2); White Blood Count 6.9 K/mm3 (4.4-11.0)
[2025-01-12] MEDS: Propofol 10MG/Ml 1,000 MG/100 ML Bottle 6.6 MG CONT INF (05:45)
[2025-01-12] MEDS: CHLORHEXIDINE GLUC 2% CLOTH 1 EACH TOWELETTE TOPICAL (05:59)
[2025-01-12] MEDS: 0.9% Saline Lock 10 ML Syringe IV ×8 (06:03→21:50)
[2025-01-12] MEDS: Heparin Injection (Vial) 5,000 UNIT/ML VIAL 5000 UNIT SC ×3 (06:03→21:42)
[2025-01-12 06:39] LABS: BETA-HYDROXYBUTYRATE 0.3 mmol/L (0.0-0.3)
[2025-01-12 06:45] LABS: Anion Gap 17 (5-15); BUN 77 mg/dL (4-19); BUN/Creat Ratio 13.7 RATIO (10-20); Calcium,Total 8.5 mg/dL (7.6-11.0); Carbon Dioxide 19.3 mmol/L (21.0-32.0); Chloride 101 mmol/L (98-108); Estimated Creatinine Clearance 16.27 ml/min (50-250); Glucose 93 mg/dL (70-99); Potassium 2.7 mmol/L (3.3-5.1)
--- NOTE | 2025-01-12 06:49 | PN.CC_ITS ---
Assessment & Plan Assessment/Plan (1) Acute hypoxic respiratory failure: (2) DKA (diabetic ketoacidoses): QUALIFIERS: Diabetes mellitus complication detail: with coma D iabetes mellitus type: type 1 Qualified Code(s): E10.11 - Type 1 diabetes mellitus with ketoacidosis with coma PLAN: Plan RECOMMENDATIONS: 1. Continue assist-control mode of mechanical ventilation. Continue to wean FiO2 and PEEP as tolerated. 2. Continue basal and sliding scale insulin coverage. 3. Dialysis support per nephrology recommendations. 4. Stop continuous IV fluids. 5. Continue current sedation regimen. 6. Continue scheduled bronchodilators. 7. Antibiotics to complete 7 days of therapy. 8. Continue appropriate DVT and GI prophylaxis. 9. Okay to initiate tube feeding today from my perspective. IMPRESSIONS: 1. Acute hypoxemic respiratory failure Presumed secondary to underlying pneumonia with concern for inability to compensate for metabolic demands of DKA. The patient will be continued on assist-control mode mechanical ventilation. Continue to wean FiO2 and PEEP as tolerated. Continue current sedation regimen, with tentative plans to proceed with spontaneous awakening and breathing trials daily, as tolerated. Antimicrobials will be continued as ordered to complete 7 days of therapy. Unfortunately, the patient continues to fail spontaneous awakening trials. 2. Diabetic ketoacidosis Resolved. Continue basal and sliding scale insulin coverage. 3. Acute kidney injury Most likely secondary to ischemic ATN in the setting of DKA and hypotension. Nephrology is currently following to assist with ongoing hemodialysis needs. 4. Chronic debility/history of hypertension/hyperlipidemia/peripheral arterial disease/GERD/hypothyroidism Complicates care, management, recovery and prognosis. Continue supportive measures as noted above. Okay to initiate tube feeding today given resolution of DKA. TIME: 33 minutes of critical care time, independent of procedures, was spent addressing the patient's acute hypoxemic respiratory failure, diabetic ketoacidosis, acute kidney injury, review of all data and collaboration with the care team. Subjective Subjective The patient was seen and examined at the bedside this morning. Events from the last 24 hours have been reviewed. The patient currently has a low-grade fever, but remains otherwise hemodynamically stable on assist-control mode mechanical ventilation with an FiO2 requirement of 30% and PEEP of 5. The patient was initiated on dialysis yesterday. White blood cell count remains within normal limits. Hemoglobin is stable at 9.1 g/dL. Platelet count remains low at 113,000. Potassium is low at 2.7. The patient's continuous insulin infusion was discontinued yesterday evening, after his beta hydroxybutyrate level was noted to be normalized. He was subsequently placed on basal and sliding scale coverage. The patient is currently documented to be overall net +6.1 L for the hospitalization. Objective Data Objective Data The patient's most recent lab work, culture data and imaging studies have all been personally reviewed. Blood cultures are pending. Respiratory viral panel was negative. Strep and urine Legionella antigens were negative. Sputum culture has only demonstrated growth of presumptive Leanne albicans. Vital Signs: Vital Signs Temp Pulse Resp BP Pulse Ox O2 Del Method O2 Flow Rate 99.6 F H 79 18 129/77 H 98 Mechanical Ventilator 15 01/12/25 06:00 01/12/25 06:00 01/12/25 06:00 01/12/25 06:00 01/12/25 06:00 01/12/25 06:00 01/06/25 22:15 FiO2 30 01/12/25 06:00 Oxygen Flow Rate (L/min) 15 Oxygen Delivery Method Mechanical Ventilator Weight: 168 lb 13.985 oz Body Mass Index (BMI) 24.1 Intake & Output: Intake and Output for Last 24 Hours 01/10/25 01/11/25 01/12/25 23:59 23:59 23:59 Intake Total 3615.08 / 3631.63 3060.90 / 3112.90 1148.80 / 1148.80 Output Total 1052 / 1052 1520 / 1520 Balance 2563.08 / 2579.63 1540.90 / 1592.90 1148.80 / 1148.80 Lab / Micro Data Attestation: I reviewed the patient's lab results. 01/12/25 03:45 01/12/25 03:45 Labs: Laboratory Results - last 24 hr 01/11/25 04:05: Phosphorus 4.9 H, Magnesium 1.7, b-Hydroxybutyric mmol/L 1.8 H 01/11/25 04:54: POC Glucose 191 H 01/11/25 06:20: POC Glucose 226 H 01/11/25 07:38: POC Glucose 204 H 01/11/25 08:40: POC Glucose 268 H 01/11/25 09:47: POC Glucose 239 H 01/11/25 10:50: POC Glucose 227 H 01/11/25 12:02: POC Glucose 216 H 01/11/25 14:06: POC Glucose 152 H 01/11/25 15:06: POC Glucose 145 H 01/11/25 16:18: POC Glucose 126 H 01/11/25 17:17: POC Glucose 114 H 01/11/25 17:38: b-Hydroxybutyric mmol/L 0.2 01/11/25 18:21: POC Glucose 108 H 01/11/25 20:08: POC Glucose 113 H 01/11/25 21:54: POC Glucose 102 01/12/25 03:45: WBC 6.9, RBC 3.16 L, Hgb 9.1 L, Hct 26.0 L, MCV 82.3, MCH 28.8, MCHC 35.0, RDW Std Deviation 42.6, RDW Coeff of Candace 14.3, Plt Count 113 L, MPV 12.1 H, Sodium 138, Potassium 2.7 L*, Chloride 101, Carbon Dioxide 19.3 L, Anion Gap 17 H, BUN 77 H, Creatinine 5.61 H, Estim Creat Clear Calc 16.27 L, Est GFR (MDRD) Non-Af 12 L, BUN/Creatinine Ratio 13.7, Glucose 93, Calcium 8.5, b- Hydroxybutyric mmol/L 0.3 01/12/25 06:07: POC Glucose 86 Micro: Microbiology 01/07/25 Unknown Sputum, Induced/Lukens Gram Stain - Final 01/07/25 Unknown Sputum, Induced/Lukens Respiratory Culture - Final Presumptive C albicans 01/06/25 16:28 Blood Culture (Wb) - Anticubital Left Blood Culture - Preliminary No growth in 48 hours. 01/06/25 16:41 Blood Culture (Wb) - Right Hand Blood Culture - Preliminary No growth in 48 hours. 01/07/25 18:45 Urine Catheter - Brady Legionella Antigen - Final 01/07/25 18:45 Urine Catheter - Brady Streptococcus pneumoniae Antigen (M - Final 01/07/25 16:30 Nasal Secretion MRSA (PCR) - Final 01/07/25 09:32 Mucosa - Nasopharyngeal Respiratory Panel (PCR) - Final 01/06/25 22:15 Nasal Secretion MRSA (PCR) - Final ABG Data ABG results: ABG 01/11/25 07:25 Specimen Type ART Sample Site L Radial pH 7.34 L Bicarbonate Actual 19.4 L Total CO2 21 Base Excess -6 L O2 Saturation 97 O2 % 30.0 ABG pCO2 36.1 ABG pO2 98 Nito Test Positive Respiration Rate 16 O2 Delivery Device Adult Vent Vent Mode PRVC Tidal Volume 400.0 POC PEEP 5 Radiography Diagnostic Testing: Radiology Impression KUB X-Ray 01/11/25 09:00 IMPRESSION: Nasogastric tube is seen with the tip in the fundal portion of the stomach. The gas pattern is unremarkable. Reading Location: [id number] Chest X-Ray 01/11/25 12:35 IMPRESSION: The tip of the right internal jugular venous catheter is at the junction of the superior vena cava and right atrium. A right-sided PICC line catheter is seen with the tip at the junction of the superior vena cava and right atrium. The endotracheal tube and nasogastric tube are unchanged. Reading Location: [id number] Rhythm Strip Rhythm Strip: Sinus Tach Rate: 105 Physical Exam Const Constitutional Narrative: Intubated, sedated and mechanically ventilated. No ventilator dyssynchrony noted. General Appearance: patient mechanically ventilated HEENT normocephalic and head/scalp atraumatic Mouth: endotracheal tube in place and OG tube in place Eyes PERRL, EOMs intact bilaterally and conjunctivae normal Neck supple General: trachea midline and CVC in place Chest inspection of chest normal Resp Auscultation: rhonchi and diminished lung sounds; Negative for rales or wheezes Cardio regular rate and regular rhythm GI soft to palpation and non-tender Extremity Extremity Narrative: Left BKA Neuro Sensorium / Orientation: sedated on vent Charges/Coding Procedures Hospitalists Procedures: [id number] Critical Care 1st Hr
--- NOTE | 2025-01-12 07:29 | PCM.PN.HOSP ---
Reason for Visit Reason for Visit: Diagnoses Type 1 diabetes mellitus with ketoacidosis with coma (01/06/25) Type 2 diabetes mellitus with ketoacidosis without coma (01/06/25) Acute respiratory failure with hypoxia (01/06/25) Acute kidney failure, unspecified (01/06/25) Altered mental status, unspecified (01/06/25) Objective Data Objective Data Vital Signs: Vital Signs Temp Pulse Resp BP Pulse Ox O2 Del Method O2 Flow Rate 99.6 F H 78 18 133/77 H 99 Mechanical Ventilator 15 01/12/25 06:00 01/12/25 07:09 01/12/25 07:09 01/12/25 07:00 01/12/25 07:09 01/12/25 07:00 01/06/25 22:15 FiO2 30 01/12/25 07:00 Oxygen Flow Rate (L/min) 15 Oxygen Delivery Method Mechanical Ventilator Weight: 168 lb 13.985 oz Body Mass Index (BMI) 24.1 Intake & Output: Intake and Output for Last 24 Hours 01/10/25 01/11/25 01/12/25 23:59 23:59 23:59 Intake Total 3615.08 / 3631.63 3060.90 / 3112.90 1198.35 / 1198.35 Output Total 1052 / 1052 1520 / 1520 75 / 75 Balance 2563.08 / 2579.63 1540.90 / 1592.90 1123.35 / 1123.35 Lab / Micro Data 01/12/25 03:45 01/12/25 03:45 Labs: Laboratory Results - last 24 hr 01/11/25 04:05: Phosphorus 4.9 H, Magnesium 1.7, b-Hydroxybutyric mmol/L 1.8 H 01/11/25 04:54: POC Glucose 191 H 01/11/25 06:20: POC Glucose 226 H 01/11/25 07:38: POC Glucose 204 H 01/11/25 08:40: POC Glucose 268 H 01/11/25 09:47: POC Glucose 239 H 01/11/25 10:50: POC Glucose 227 H 01/11/25 12:02: POC Glucose 216 H 01/11/25 14:06: POC Glucose 152 H 01/11/25 15:06: POC Glucose 145 H 01/11/25 16:18: POC Glucose 126 H 01/11/25 17:17: POC Glucose 114 H 01/11/25 17:38: b-Hydroxybutyric mmol/L 0.2 01/11/25 18:21: POC Glucose 108 H 01/11/25 20:08: POC Glucose 113 H 01/11/25 21:54: POC Glucose 102 01/12/25 03:45: WBC 6.9, RBC 3.16 L, Hgb 9.1 L, Hct 26.0 L, MCV 82.3, MCH 28.8, MCHC 35.0, RDW Std Deviation 42.6, RDW Coeff of Candace 14.3, Plt Count 113 L, MPV 12.1 H, Sodium 138, Potassium 2.7 L*, Chloride 101, Carbon Dioxide 19.3 L, Anion Gap 17 H, BUN 77 H, Creatinine 5.61 H, Estim Creat Clear Calc 16.27 L, Est GFR (MDRD) Non-Af 12 L, BUN/Creatinine Ratio 13.7, Glucose 93, Calcium 8.5, b-Hydroxybutyric mmol/L 0.3 01/12/25 06:07: POC Glucose 86 Micro: Microbiology 01/07/25 Unknown Sputum, Induced/Lukens Gram Stain - Final 01/07/25 Unknown Sputum, Induced/Lukens Respiratory Culture - Final Presumptive C albicans 01/06/25 16:28 Blood Culture (Wb) - Anticubital Left Blood Culture - Preliminary No growth in 48 hours. 01/06/25 16:41 Blood Culture (Wb) - Right Hand Blood Culture - Preliminary No growth in 48 hours. 01/07/25 18:45 Urine Catheter - Brady Legionella Antigen - Final 01/07/25 18:45 Urine Catheter - Brady Streptococcus pneumoniae Antigen (M - Final 01/07/25 16:30 Nasal Secretion MRSA (PCR) - Final 01/07/25 09:32 Mucosa - Nasopharyngeal Respiratory Panel (PCR) - Final 01/06/25 22:15 Nasal Secretion MRSA (PCR) - Final Radiography Diagnostic Testing: Radiology Impression KUB X-Ray 01/11/25 09:00 IMPRESSION: Nasogastric tube is seen with the tip in the fundal portion of the stomach. The gas pattern is unremarkable. Reading Location: [id number] Chest X-Ray 01/11/25 12:35 IMPRESSION: The tip of the right internal jugular venous catheter is at the junction of the superior vena cava and right atrium. A right-sided PICC line catheter is seen with the tip at the junction of the superior vena cava and right atrium. The endotracheal tube and nasogastric tube are unchanged. Reading Location: [facility] Rhythm Strip Rhythm Strip: Sinus Tach Rate: 105 Physical Exam Narrative Seen and examined. Overnight events noted. Patient had right IJ temporary dialysis catheter inserted and large dialyzed short time yesterday. Today undergoing hemodialysis. Slight improvement in creatinine Tmax 99.6 Fahrenheit, sinus rhythm. On 30% FiO2, mean airway pressure 8.9. Patient was put back on propofol while he was agitated in the morning Physical exam: General: Lightly sedated on propofol still moving. HEENT: Atraumatic, Normocephalic. Seated Oral: ET and OG tube Neck: Supple, No JVD, Negative Carotid Bruits. Right IJ dialysis catheter Chest wall/Lungs: Air entry diminished in bilateral lung bases. No crepitation/rhonchi Cardiovascular: Sinus tachycardia, soft heart sound, no M/G/R Abdomen: Bowel Sounds sluggish, Soft, Non Tender, Non-Distended : Anuria, Brady catheter, anuria, no urine output. No renal angle tenderness. No suprapubic tenderness. Extremities: No edema, Capillary Refill Less than 3 Seconds. Left BKA. Extremities pale Skin: Multiple scabs in lower extremities Musculoskeletal: No Tenderness to Palpation of Joints or Extremities Neurological: No obvious lateralizing neurological sign, detailed neuroexam not done Psych/Mental Status: Mild agitation Assessment & Plan Assessment/Plan (1) Acute hypoxic respiratory failure: (2) DKA (diabetic ketoacidoses): QUALIFIERS: Diabetes mellitus complication detail: with coma Diabetes mellitus type: type 1 Qualified Code(s): E10.11 - Type 1 diabetes mellitus with ketoacidosis with coma PLAN: Plan Patient is a 49-year-old male who presented to [facility] ED on 01/06/2025 with altered mental status and hyperglycemia. 1. DKA with persistent anion gap metabolic acidosis, poorly controlled type 1 diabetes mellitus with diabetic neuropathy ? Follows with Dr. Naik in the office and has had poor compliance with insulin pump noted. A1c 10.7% on admit, similar to last office A1c. Labs on admit consistent with DKA. Initial ABG with pH 6.93, pCO2 15, blood glucose 788 and bicarb on BMP was less than 5. Had good improvement on ABG initially with treatment with insulin drip. 01/12: Beta-hydroxybutyrate 0.3 in normal range. AG 17, bicarb 19, K2.7. In the interim, insulin drip was changed to intermittent subcu glargine and lispro insulin 2. Acute hypoxic respiratory failure ? Cost Clerk following. Had worsening oxygen requirements on admit and chest x-ray showed severe bilateral pulmonary infiltrates. Intubated on morning of 01/07. Per evaluation specialist, differential diagnosis includes pulmonary edema, aspiration event and ARDS. BNP elevated to 4000 but lower clinical suspicion for heart failure; echo with normal EF and no concerning findings. SBT completed on morning of 01/10 and unfortunately patient failed with concern for an aspiration event. Had bilious contents suctioned from ET tube and was suspected this may be due to gastroparesis from poorly controlled diabetes as above. Treating with Reglan as above. Continue to treat with IV cefepime and scheduled DuoNebs. Oxygen requirements remain low but patient with significant agitation with spontaneous awakening trials. Ventilator management and further recommendations per evaluation specialist. 01/12: Still intubated. Continue IV cefepime, scheduled DuoNeb. 3. Acute metabolic encephalopathy ? Cost Clerk following as above. Presumed multifactorial from DKA with severe metabolic acidosis as well as respiratory failure. Remains intubated and sedated at this time. Has nonpurposeful movements but not following commands. Monitor. 4. Severe DIYA ? Nephrology following. Likely secondary to ATN primarily due to hypotension in setting of DKA with volume depletion. Baseline creatinine around 0.9. Creatinine 2.5 on admission. Significantly worsened initially and patient was anuric. However, with IV albumin and high-dose diuretics patient began to have significant urine output on 01/08. Unfortunately, creatinine only improved slightly and then has since been steadily worsening with minimal urine output. Most recent creatinine 6.15 on 01/11. Carrier Blower made decision for dialysis. Cost Clerk placed temporary HD line on 01/11 and plan is for dialysis to be initiated later this evening. Appreciate further nephrology recommendations. 01/12: Undergoing hemodialysis. 5. Acute on chronic anemia and thrombocytopenia since admission, ? Hemoglobin 12.9 on admit, baseline appears to be around 13-14. Hemoglobin downtrending during hospitalization but this was thought to be secondary to hemodilution from severe volume overload. Had one hemoglobin read of 8.4 on morning of 01/09; however hemoglobin was up to 10 on afternoon of 01/09 and has remained stable. No dark or bloody bowel movements noted. Will continue IV PPI twice daily for now. Monitor daily CBC. Will hold off on GI consult at this time. : Patient platelet count steadily decreased from 200 50K in July 08-158 on 01/07/2025, trough 52 on 01/09. Since that had slight recovery 6. Hyponatremia, resolved ? Sodium 122 on admit, corrected sodium 133 in setting of severe hyperglycemia. Resolved with IV fluids on admission. 7. Acute on chronic debility with history of left BKA ? PT/OT/case management following. Appreciate therapy recommendations. Chronic medical conditions: ? Class II obesity: BMI 37 on admit. Complicates hospital course, care and prognosis. ? History of PAD, hypertension, hyperlipidemia: Holding home amlodipine, lisinopril and statin. ? GERD: Treating with IV PPI twice daily as above. ? Hypothyroidism: Continue home Synthroid. DVT prophylaxis: Heparin subcu CODE STATUS: Full code, unverified Expected disposition: TBD Total time of the visit including total time spent in counseling or coordination of care, (more than 50% of the total time, spent in obtaining medical information from nurses and other ancillary care providers ,explaining to the patient about labs, imaging, diagnosis and management of active complex medical conditions), , review of labs and imaging is 35 minutes. Charges/Coding Visit Charges Inpatient E&M: 16362 Subs Hosp L3
[2025-01-12 07:32] LABS: Magnesium 1.6 mg/dL (1.5-2.2)
[2025-01-12] MEDS: 0.9% Normal Saline 1,000 ML IV.SOLN. 1000 ML OPERA.SITE ×2 (08:05→09:07)
[2025-01-12] MEDS: PureFlow B 3K Dialysis Soln 1 BAG 6 BAG PF (08:05)
[2025-01-12] MEDS: Pantoprazole Sodium 40 MG in 0.9% Normal Saline (100mL MB+) 100 ML 330 MG IV ×2 (09:43→21:42)
[2025-01-12] MEDS: Potassium Chloride 20mEq/100mL 20 MEQ/100 ML IV.SOLN. 100 MEQ IV BOLUS ×2 (10:38→11:59)
[2025-01-12] MEDS: Vital AF 1.2 Cal Liquid 1,000 ML 15 ML GT (12:15)
[2025-01-12] MEDS: Chlorhexidine 15 ML PO ×2 (12:25→21:39)
[2025-01-12] MEDS: Insulin Glargine-YFGN 100 UNIT/ML Pen 15 UNIT SC ×2 (13:22→21:40)
[2025-01-12] MEDS: Propofol 10MG/Ml 1,000 MG/100 ML Bottle 15.4 MG CONT INF (13:59)
[2025-01-12] MEDS: Cefepime HCl 1 GM in 0.9% Normal Saline (50mL MB+) 50 ML IV (15:18)
--- NOTE | 2025-01-12 17:51 | PCM.PN.REN ---
Subjective Subjective no new events Objective Data Objective Data Vital Signs: Vital Signs Temp Pulse Resp BP Pulse Ox O2 Del Method O2 Flow Rate 98.9 F 78 19 H 148/88 H 99 Mechanical Ventilator 15 01/12/25 15:00 01/12/25 15:22 01/12/25 15:22 01/12/25 15:00 01/12/25 15:22 01/12/25 15:00 01/06/25 22:15 FiO2 30 01/12/25 15:00 Oxygen Flow Rate (L/min) 15 Oxygen Delivery Method Mechanical Ventilator Weight: 76 kg Body Mass Index (BMI) 24.0 Intake & Output: Intake and Output for Last 24 Hours 01/10/25 01/11/25 01/12/25 23:59 23:59 23:59 Intake Total 3615.08 / 3631.63 3060.90 / 3112.90 2856.51 / 2856.51 Output Total 1052 / 1052 1520 / 1520 735 / 735 Balance 2563.08 / 2579.63 1540.90 / 1592.90 2121.51 / 2121.51 Lab / Micro Data 01/12/25 03:45 01/12/25 03:45 Labs: Laboratory Results - last 24 hr 01/11/25 17:38: b-Hydroxybutyric mmol/L 0.2 01/11/25 18:21: POC Glucose 108 H 01/11/25 20:08: POC Glucose 113 H 01/11/25 21:54: POC Glucose 102 01/12/25 02:25: POC Glucose 94 01/12/25 03:45: WBC 6.9, RBC 3.16 L, Hgb 9.1 L, Hct 26.0 L, MCV 82.3, MCH 28.8, MCHC 35.0, RDW Std Deviation 42.6, RDW Coeff of Candace 14.3, Plt Count 113 L, MPV 12.1 H, Sodium 138, Potassium 2.7 L*, Chloride 101, Carbon Dioxide 19.3 L, Anion Gap 17 H, BUN 77 H, Creatinine 5.61 H, Estim Creat Clear Calc 16.27 L, Est GFR (MDRD) Non-Af 12 L, BUN/Creatinine Ratio 13.7, Glucose 93, Calcium 8.5, Phosphorus 3.7, Magnesium 1.6, b-Hydroxybutyric mmol/L 0.3 01/12/25 06:07: POC Glucose 86 01/12/25 10:36: POC Glucose 86 01/12/25 13:15: POC Glucose 91 Micro: Microbiology 01/06/25 16:28 Blood Culture (Wb) - Anticubital Left Blood Culture - Final No growth in 5 days. 01/06/25 16:41 Blood Culture (Wb) - Right Hand Blood Culture - Final No growth in 5 days. 01/07/25 Unknown Sputum, Induced/Lukens Gram Stain - Final 01/07/25 Unknown Sputum, Induced/Lukens Respiratory Culture - Final Presumptive C albicans 01/07/25 18:45 Urine Catheter - Brady Legionella Antigen - Final 01/07/25 18:45 Urine Catheter - Bardy Streptococcus pneumoniae Antigen (M - Final 01/07/25 16:30 Nasal Secretion MRSA (PCR) - Final 01/07/25 09:32 Mucosa - Nasopharyngeal Respiratory Panel (PCR) - Final 01/06/25 22:15 Nasal Secretion MRSA (PCR) - Final Rhythm Strip Rhythm Strip: Sinus Tach Rate: 105 Physical Exam Narrative no acute distress S1, S2, RRR Breath sounds clear anteriorly. No rales or rhonchi Abdomen soft, nondistended, positive bowel sounds No edema, left BKA, no edema to thighs Assessment & Plan Assessment/Plan (1) DIYA (acute kidney injury): (2) Altered mental status: (3) Acute hypoxic respiratory failure: PLAN: Plan This is a 49-year-old male with past medical history significant for diabetes mellitus type 1, hypothyroidism, alcohol abuse presented to the ER yesterday with altered mental status changes, high glucose, admitted for DKA with severe high anion gap metabolic acidosis, started on insulin drip, received multiple liters of IV fluids. - Initially anuric DIYA likely secondary to ATN, hypotension, DKA. Patient has normal baseline creatinine. Renal ultrasound without any hydronephrosis. Massive nephrotic range proteinuria, presumably this is related to diabetes (A1C ranging 10-12% April 2023 to present). He had serologies done before which were negative. Initially creatinine improved, however worsened. HD initiated 01/11 today second treatment see orders Hypokalemia. better
[2025-01-12] MEDS: Propofol 10MG/Ml 1,000 MG/100 ML Bottle 13.2 MG CONT INF (19:15)
[2025-01-13] VITALS (40 sets, daily range): BP systolic 114–193; BP diastolic 70–102; PULSE 78–114; RESP 12–28; TEMP 36.9–37.9; O2SAT 88–100; BMI 24.9; BMI 24.8
[2025-01-13] MEDS: CHLORHEXIDINE GLUC 2% CLOTH 1 EACH TOWELETTE TOPICAL (00:29)
[2025-01-13] MEDS: Propofol 10MG/Ml 1,000 MG/100 ML Bottle 13.2 MG CONT INF (00:38)
[2025-01-13] MEDS: fentaNYL drip 100 ML 20 MCG CONT INF (02:56)
--- NOTE | 2025-01-13 03:00 | RAD_ITS ---
PROCEDURE: CHEST 1 VIEW (PORTABLE) 01/13/2025 REASON FOR EXAM: ETT position TECHNIQUE: Frontal view of the chest. COMPARISON: 01/11/2025 FINDINGS: ETT tip at thoracic inlet. Right IJ CVC tip in SVC. Enteric tube tip in stomach lumen. Right-sided PICC line tip in SVC. Normal heart size. Under aerated lungs. Interval development of right mid and lower lung zone airspace disease. Interval partial improvement in left lung base airspace disease with developing left central lung airspace disease. No large effusion or pneumothorax. RAD/Chest 1 View (Portable) IMPRESSION: Successful ETT positioning. Shifting airspace disease, correlate for aspiration and/or asymmetric edema. Reading Location: [facility]
--- NOTE | 2025-01-13 03:12 | NURSING ---
0200 assessment noticed patient's ETT was at 25-26cm and should be at 23 pt was stable and in no distress at this time. Respiratory therapist called to advance tube. Around 0230 noticed patient was agitated and thrashing head around in bed. ETT was noted to be out to 16-17cm with patient in distress. ETT was able to be readvanced back to 23 without losing placement completely. Chest xray ordered to confirm placement. Tube feeds on hold. Sedation increased to decrease chance of self extubation.
[2025-01-13] MEDS: Dexmedetomidine 1,000 mcg in 0.9% NS 240 mL 27.6 MCG CONT INF ×2 (04:04→16:04)
[2025-01-13] MEDS: Acetaminophen 650 MG/20 ML UDC GT (04:10)
[2025-01-13] MEDS: Propofol 10MG/Ml 1,000 MG/100 ML Bottle 15.4 MG CONT INF (05:30)
[2025-01-13 05:32] LABS: Magnesium 1.5 mg/dL (1.5-2.2)
[2025-01-13] MEDS: Heparin Injection (Vial) 5,000 UNIT/ML VIAL 5000 UNIT SC ×3 (06:04→22:44)
--- NOTE | 2025-01-13 06:46 | PCM.PN.INT ---
Assessment & Plan Assessment/Plan (1) Acute hypoxic respiratory failure: (2) DKA (diabetic ketoacidoses): QUALIFIERS: Diabetes mellitus type: type 1 Diabetes mellitus complication detail: with coma Qualified Code(s): E10.11 - Type 1 diabetes mellitus with ketoacidosis with coma PLAN: Plan RECOMMENDATIONS: 1. Proceed with a trial of extubation. 2. Once extubated, wean supplemental oxygen to maintain saturations at or above 90%. 3. Continue basal and sliding scale insulin coverage. 4. Ongoing dialysis support per nephrology recommendations. 5. Speech therapy evaluation prior to advancement of diet. 6. 7 days of antimicrobials have been completed. 7. Continue appropriate ICU prophylaxis. 8. Continue aggressive bronchopulmonary hygiene. IMPRESSIONS: 1. Acute hypoxemic respiratory failure Presumed secondary to underlying pneumonia with concern for inability to compensate for metabolic demands of DKA. With supportive care, including antimicrobials and invasive mechanical ventilatory support, the patient was able to be extubated on January 13. He has now completed a 7-day course of antimicrobials. Once extubated, supplemental oxygen will be weaned to maintain saturations at or above 90%. Recommend speech therapy evaluation prior to advancement of diet along with ongoing aggressive bronchopulmonary hygiene. 2. Diabetic ketoacidosis Resolved. Continue basal and sliding scale insulin coverage. 3. Acute kidney injury Most likely secondary to ischemic ATN in the setting of DKA and hypotension. Nephrology is currently following to assist with ongoing hemodialysis needs. 4. Chronic debility/history of hypertension/hyperlipidemia/peripheral arterial disease/GERD/hypothyroidism Complicates care, management, recovery and prognosis. Continue supportive measures as noted above. Physical therapy to work with the patient. TIME: 34 minutes of critical care time, independent of procedures, was spent addressing the patient's acute hypoxemic respiratory failure, diabetic ketoacidosis, acute kidney injury, review of all data and collaboration with the care team. Subjective Subjective The patient was seen and examined at the bedside this morning. Events from the last 24 hours have been reviewed. The patient was noted to have a low-grade fever but was otherwise hemodynamically stable on CPAP trial this morning with an FiO2 of 25%. Although intermittently agitated, the patient was able to complete a spontaneous breathing trial and was subsequently extubated. He is currently documented to be overall net +8.5 L for the hospitalization. He did complete dialysis yesterday. Objective Data Objective Data The patient's most recent lab work, culture data and imaging studies have all been personally reviewed. Blood cultures are pending. Respiratory viral panel was negative. Strep and urine Legionella antigens were negative. Sputum culture has only demonstrated growth of presumptive Leanne albicans. Vital Signs: Vital Signs Temp Pulse Resp BP Pulse Ox O2 Del Method O2 Flow Rate 99.7 F H 82 24 H 114/71 98 Mechanical Ventilator 15 01/13/25 05:00 01/13/25 06:00 01/13/25 06:00 01/13/25 06:00 01/13/25 06:00 01/13/25 06:00 01/06/25 22:15 FiO2 25 01/13/25 06:00 Oxygen Flow Rate (L/min) 15 Oxygen Delivery Method Mechanical Ventilator Weight: 173 lb 11.588 oz Body Mass Index (BMI) 24.9 Intake & Output: Intake and Output for Last 24 Hours 01/11/25 01/12/25 01/13/25 23:59 23:59 23:59 Intake Total 3060.90 / 3112.90 3677.52 / 3828.32 676.40 / 676.40 Output Total 1520 / 1520 735 / 735 125 / 125 Balance 1540.90 / 1592.90 2942.52 / 3093.32 551.40 / 551.40 Lab / Micro Data Attestation: I reviewed the patient's lab results. 01/12/25 03:45 01/13/25 04:55 Labs: Laboratory Results - last 24 hr 01/12/25 02:25: POC Glucose 94 01/12/25 03:45: Phosphorus 3.7, Magnesium 1.6 01/12/25 10:36: POC Glucose 86 01/12/25 13:15: POC Glucose 91 01/12/25 18:11: POC Glucose 88 01/12/25 21:38: POC Glucose 102 01/13/25 01:59: POC Glucose 78 01/13/25 04:06: POC Glucose 93 01/13/25 04:55: Phosphorus 3.7, Magnesium 1.5 01/13/25 05:46: POC Glucose 83 Micro: Microbiology 01/06/25 16:28 Blood Culture (Wb) - Anticubital Left Blood Culture - Final No growth in 5 days. 01/06/25 16:41 Blood Culture (Wb) - Right Hand Blood Culture - Final No growth in 5 days. 01/07/25 Unknown Sputum, Induced/Lukens Gram Stain - Final 01/07/25 Unknown Sputum, Induced/Lukens Respiratory Culture - Final Presumptive C albicans 01/07/25 18:45 Urine Catheter - Brady Legionella Antigen - Final 01/07/25 18:45 Urine Catheter - Brady Streptococcus pneumoniae Antigen (M - Final 01/07/25 16:30 Nasal Secretion MRSA (PCR) - Final 01/07/25 09:32 Mucosa - Nasopharyngeal Respiratory Panel (PCR) - Final 01/06/25 22:15 Nasal Secretion MRSA (PCR) - Final ABG Data ABG results: ABG 01/11/25 07:25 Specimen Type ART Sample Site L Radial pH 7.34 L Bicarbonate Actual 19.4 L Total CO2 21 Base Excess -6 L O2 Saturation 97 O2 % 30.0 ABG pCO2 36.1 ABG pO2 98 Nito Test Positive Respiration Rate 16 O2 Delivery Device Adult Vent Vent Mode PRVC Tidal Volume 400.0 POC PEEP 5 Radiography Diagnostic Testing: Radiology Impression Chest X-Ray 01/13/25 03:00 IMPRESSION: Successful ETT positioning. Shifting airspace disease, correlate for aspiration and/or asymmetric edema. Reading Location: [place] [id number] Rhythm Strip Rhythm Strip: Sinus Tach Rate: 105 Physical Exam Const Constitutional Narrative: Remains intubated and mechanically ventilated. Tolerating CPAP trial currently. General Appearance: patient mechanically ventilated HEENT normocephalic and head/scalp atraumatic Mouth: endotracheal tube in place and OG tube in place Eyes PERRL, EOMs intact bilaterally and conjunctivae normal Neck supple General: trachea midline and CVC in place Chest inspection of chest normal Resp Auscultation: rhonchi and diminished lung sounds; Negative for rales or wheezes Cardio regular rate and regular rhythm GI soft to palpation and non-tender Extremity Extremity Narrative: Left BKA Neuro Neuro Narrative: Currently alert and interactive off sedation. Psych Activity / Motor Behavior: restless Charges/Coding Procedures Hospitalists Procedures: [id number] Critical Care 1st Hr
--- NOTE | 2025-01-13 08:13 | PCM.PN.HOSP ---
Reason for Visit Reason for Visit: Diagnoses Type 1 diabetes mellitus with ketoacidosis with coma (01/06/25) Type 2 diabetes mellitus with ketoacidosis without coma (01/06/25) Acute respiratory failure with hypoxia (01/06/25) Acute kidney failure, unspecified (01/06/25) Altered mental status, unspecified (01/06/25) Objective Data Objective Data Vital Signs: Vital Signs Temp Pulse Resp BP Pulse Ox O2 Del Method O2 Flow Rate 99.7 F H 101 H 21 H 114/71 99 Mechanical Ventilator 15 01/13/25 05:00 01/13/25 06:45 01/13/25 06:50 01/13/25 06:00 01/13/25 06:45 01/13/25 06:00 01/06/25 22:15 FiO2 25 01/13/25 06:00 Oxygen Flow Rate (L/min) 15 Oxygen Delivery Method Mechanical Ventilator Weight: 173 lb 11.588 oz Body Mass Index (BMI) 24.9 Intake & Output: Intake and Output for Last 24 Hours 01/11/25 01/12/25 01/13/25 23:59 23:59 23:59 Intake Total 3060.90 / 3112.90 3677.52 / 3828.32 712.15 / 712.15 Output Total 1520 / 1520 735 / 735 125 / 125 Balance 1540.90 / 1592.90 2942.52 / 3093.32 587.15 / 587.15 Lab / Micro Data 01/12/25 03:45 01/12/25 03:45 Labs: Laboratory Results - last 24 hr 01/12/25 02:25: POC Glucose 94 01/12/25 10:36: POC Glucose 86 01/12/25 13:15: POC Glucose 91 01/12/25 18:11: POC Glucose 88 01/12/25 21:38: POC Glucose 102 01/13/25 01:59: POC Glucose 78 01/13/25 04:06: POC Glucose 93 01/13/25 04:55: Phosphorus 3.7, Magnesium 1.5 01/13/25 05:46: POC Glucose 83 Micro: Microbiology 01/06/25 16:28 Blood Culture (Wb) - Anticubital Left Blood Culture - Final No growth in 5 days. 01/06/25 16:41 Blood Culture (Wb) - Right Hand Blood Culture - Final No growth in 5 days. 01/07/25 Unknown Sputum, Induced/Lukens Gram Stain - Final 01/07/25 Unknown Sputum, Induced/Lukens Respiratory Culture - Final Presumptive C albicans 01/07/25 18:45 Urine Catheter - Brady Legionella Antigen - Final 01/07/25 18:45 Urine Catheter - Brady Streptococcus pneumoniae Antigen (M - Final 01/07/25 16:30 Nasal Secretion MRSA (PCR) - Final 01/07/25 09:32 Mucosa - Nasopharyngeal Respiratory Panel (PCR) - Final 01/06/25 22:15 Nasal Secretion MRSA (PCR) - Final Radiography Diagnostic Testing: Radiology Impression Chest X-Ray 01/13/25 03:00 IMPRESSION: Successful ETT positioning. Shifting airspace disease, correlate for aspiration and/or asymmetric edema. Reading Location: [place] [address] Rhythm Strip Rhythm Strip: Sinus Tach Rate: 105 Physical Exam Narrative Seen and examined. The patient is extubated. He is restless and agitated, thrashing about his limbs. Had 150 mL of urine output last night. Still ordered dialysis for Patient had right IJ temporary dialysis catheter inserted and large dialyzed short time yesterday. Tmax 99.7 Fahrenheit, sinus rhythm. On 30% FiO2, mean airway pressure 8.9. Patient was put back on propofol while he was agitated in the morning Physical exam: General: Awake, restless agitated. HEENT: Atraumatic, Normocephalic. Seated Oral: Oral mucosa dry Neck: Supple, No JVD, Negative Carotid Bruits. Right IJ dialysis catheter Chest wall/Lungs: Air entry diminished in bilateral lung bases. No crepitation/rhonchi Cardiovascular: Sinus rhythm, soft heart sound, no M/G/R Abdomen: Bowel Sounds sluggish, Soft, Non Tender, Non-Distended : Anuria, Brady catheter, oliguria no renal angle tenderness. No suprapubic tenderness. Extremities: No edema, Capillary Refill Less than 3 Seconds. Left BKA. Extremities pale Skin: Multiple scabs in lower extremities Musculoskeletal: No Tenderness to Palpation of Joints or Extremities Neurological: No obvious lateralizing neurological sign, detailed neuroexam not done Psych/Mental Status: Agitated restless, and delirium Assessment & Plan Assessment/Plan (1) Acute hypoxic respiratory failure: (2) DKA (diabetic ketoacidoses): QUALIFIERS: Diabetes mellitus type: type 1 Diabetes mellitus complication detail: with coma Qualified Code(s): E10.11 - Type 1 diabetes mellitus with ketoacidosis with coma PLAN: Plan Patient is a 49-year-old male who presented to [facility] ED on 01/06/2025 with altered mental status and hyperglycemia. 1. DKA with persistent anion gap metabolic acidosis, poorly controlled type 1 diabetes mellitus with diabetic neuropathy ? Follows with Dr. Naik in the office and has had poor compliance with insulin pump noted. A1c 10.7% on admit, similar to last office A1c. Labs on admit consistent with DKA. Initial ABG with pH 6.93, pCO2 15, blood glucose 788 and bicarb on BMP was less than 5. Had good improvement on ABG initially with treatment with insulin drip. 01/12: Beta-hydroxybutyrate 0.3 in normal range. AG 17, bicarb 19, K2.7. In the interim, insulin drip was changed to intermittent subcu glargine and lispro insulin 2. Acute hypoxic respiratory failure ? Bioinformatics Associate following. Had worsening oxygen requirements on admit and chest x-ray showed severe bilateral pulmonary infiltrates. Intubated on morning of 01/07. Per machining and assembly supervisor, differential diagnosis includes pulmonary edema, aspiration event and ARDS. BNP elevated to 4000 but lower clinical suspicion for heart failure; echo with normal EF and no concerning findings. SBT completed on morning of 01/10 and unfortunately patient failed with concern for an aspiration event. Had bilious contents suctioned from ET tube and was suspected this may be due to gastroparesis from poorly controlled diabetes as above. Treating with Reglan as above. Continue to treat with IV cefepime and scheduled DuoNebs. Oxygen requirements remain low but patient with significant agitation with spontaneous awakening trials. Ventilator management and further recommendations per machining and assembly supervisor. 01/12: Still intubated. Continue IV cefepime, scheduled DuoNeb. 01/13: Patient was extubated. He is in delirium with hyperactive, inattention and delirium advised low-dose Precedex drip 3. Acute metabolic encephalopathy ? Bioinformatics Associate following as above. Presumed multifactorial from DKA with severe metabolic acidosis as well as respiratory failure. Remains intubated and sedated at this time. Has nonpurposeful movements but not following commands. Monitor. 01/13: In delirium. 4. Severe DIYA ? Nephrology following. Likely secondary to ATN primarily due to hypotension in setting of DKA with volume depletion. Baseline creatinine around 0.9. Creatinine 2.5 on admission. Significantly worsened initially and patient was anuric. However, with IV albumin and high-dose diuretics patient began to have significant urine output on 01/08. Unfortunately, creatinine only improved slightly and then has since been steadily worsening with minimal urine output. Most recent creatinine 6.15 on 01/11. Assistant Professor Of Art made decision for dialysis. Bioinformatics Associate placed temporary HD line on 01/11 and plan is for dialysis to be initiated later this evening. Appreciate further nephrology recommendations. 01/12: Undergoing hemodialysis. 01/13: Still oliguric. On hemodialysis. 5. Acute on chronic anemia and thrombocytopenia since admission, ? Hemoglobin 12.9 on admit, baseline appears to be around 13-14. Hemoglobin downtrending during hospitalization but this was thought to be secondary to hemodilution from severe volume overload. Had one hemoglobin read of 8.4 on morning of 01/09; however hemoglobin was up to 10 on afternoon of 01/09 and has remained stable. No dark or bloody bowel movements noted. Will continue IV PPI twice daily for now. Monitor daily CBC. Will hold off on GI consult at this time. 01/12: Patient platelet count steadily decreased from 250K in July 08-158 on 01/07/2025, trough 52 on 01/09. Since that had slight recovery 01/13: 6. Hyponatremia, resolved ? Sodium 122 on admit, corrected sodium 133 in setting of severe hyperglycemia. Resolved with IV fluids on admission. 7. Acute on chronic debility with history of left BKA ? PT/OT/case management following. Appreciate therapy recommendations. Chronic medical conditions: ? Class II obesity: BMI 37 on admit. Complicates hospital course, care and prognosis. ? History of PAD, hypertension, hyperlipidemia: Holding home amlodipine, lisinopril and statin. ? GERD: Treating with IV PPI twice daily as above. ? Hypothyroidism: Continue home Synthroid. DVT prophylaxis: Heparin subcu CODE STATUS: Full code, unverified Expected disposition: TBD Total time of the visit including total time spent in counseling or coordination of care, (more than 50% of the total time, spent in obtaining medical information from nurses and other ancillary care providers ,explaining to the patient about labs, imaging, diagnosis and management of active complex medical conditions), , review of labs and imaging is 35 minutes. Charges/Coding Visit Charges Inpatient E&M: 95844 Subs Hosp L3
[2025-01-13 08:52] LABS: Anion Gap 15 (5-15); BUN 57 mg/dL (4-19); BUN/Creat Ratio 11.8 RATIO (10-20); Calcium,Total 8.6 mg/dL (7.6-11.0); Carbon Dioxide 19.5 mmol/L (21.0-32.0); Chloride 103 mmol/L (98-108); Estimated Creatinine Clearance 19.01 ml/min (50-250); Glucose 101 mg/dL (70-99); Potassium 3.1 mmol/L (3.3-5.1)
[2025-01-13] MEDS: 0.9% Saline Lock 10 ML Syringe IV ×6 (09:00→23:07)
[2025-01-13] MEDS: 0.9% Normal Saline 1,000 ML IV.SOLN. 1000 ML OPERA.SITE (10:28)
[2025-01-13] MEDS: PureFlow B 3K Dialysis Soln 1 BAG 6 BAG PF (10:28)
[2025-01-13] MEDS: 0.9% Normal Saline (250mL Bag) 250 ML 100 ML IV (11:07)
--- NOTE | 2025-01-13 11:08 | CASEMGMT ---
Discharge Planning A list of?SNF providers including quality and resource use data and consistent with the patient's preferred geographic region, medical needs, and insurance network was created in [employer] Guide.? This list was provided to the SW. Siobhan Song Discharge Planning Asst.
--- NOTE | 2025-01-13 11:23 | PN.RENAL_ITS ---
Subjective Subjective Patient was extubated. He is awake. Not following commands. On hemodialysis. Objective Data Objective Data Vital Signs: Vital Signs Temp Pulse Resp BP Pulse Ox O2 Del Method O2 Flow Rate 100.1 F H 112 H 25 H 166/92 H 88 Nasal Cannula 4 01/13/25 09:23 01/13/25 11:15 01/13/25 09:23 01/13/25 11:15 01/13/25 09:23 01/13/25 09:23 01/13/25 09:23 FiO2 25 01/13/25 07:00 Oxygen Flow Rate (L/min) 4 Oxygen Delivery Method Nasal Cannula Weight: 78.8 kg Body Mass Index (BMI) 24.9 Intake & Output: Intake and Output for Last 24 Hours 01/11/25 01/12/25 01/13/25 23:59 23:59 23:59 Intake Total 3060.90 / 3112.90 3677.52 / 3828.32 978.24 / 978.24 Output Total 1520 / 1520 735 / 735 125 / 125 Balance 1540.90 / 1592.90 2942.52 / 3093.32 853.24 / 853.24 Lab / Micro Data 01/12/25 03:45 01/13/25 04:55 Labs: Laboratory Results - last 24 hr 01/12/25 13:15: POC Glucose 91 01/12/25 18:11: POC Glucose 88 01/12/25 21:38: POC Glucose 102 01/13/25 01:59: POC Glucose 78 01/13/25 04:06: POC Glucose 93 01/13/25 04:55: Sodium 138, Potassium 3.1 L, Chloride 103, Carbon Dioxide 19.5 L , Anion Gap 15, BUN 57 H, Creatinine 4.80 H, Estim Creat Clear Calc 19.01 L, Est GFR (MDRD) Non-Af 14 L, BUN/Creatinine Ratio 11.8, Glucose 101 H, Calcium 8.6, Phosphorus 3.7, Magnesium 1.5 01/13/25 05:46: POC Glucose 83 Micro: Microbiology 01/06/25 16:28 Blood Culture (Wb) - Anticubital Left Blood Culture - Final No growth in 5 days. 01/06/25 16:41 Blood Culture (Wb) - Right Hand Blood Culture - Final No growth in 5 days. 01/07/25 Unknown Sputum, Induced/Lukens Gram Stain - Final 01/07/25 Unknown Sputum, Induced/Lukens Respiratory Culture - Final Presumptive C albicans 01/07/25 18:45 Urine Catheter - Brady Legionella Antigen - Final 01/07/25 18:45 Urine Catheter - Brady Streptococcus pneumoniae Antigen (M - Final 01/07/25 16:30 Nasal Secretion MRSA (PCR) - Final 01/07/25 09:32 Mucosa - Nasopharyngeal Respiratory Panel (PCR) - Final 01/06/25 22:15 Nasal Secretion MRSA (PCR) - Final Radiography Diagnostic Testing: Radiology Impression Chest X-Ray 01/13/25 03:00 IMPRESSION: Successful ETT positioning. Shifting airspace disease, correlate for aspiration and/or asymmetric edema. Reading Location: [place] [address] Rhythm Strip Rhythm Strip: Sinus Tach Rate: 105 Physical Exam Narrative no acute distress S1, S2, RRR Breath sounds clear anteriorly. No rales or rhonchi Abdomen soft, nondistended, positive bowel sounds No edema, left BKA, no edema to thighs Nontunneled right IJ hemodialysis catheter accessed for hemodialysis. Dressing clean, dry and intact Assessment & Plan Assessment/Plan (1) DIYA (acute kidney injury): (2) Altered mental status: (3) Acute hypoxic respiratory failure: PLAN: Plan This is a 49-year-old male with past medical history significant for diabetes mellitus type 1, hypothyroidism, alcohol abuse presented to the ER yesterday with altered mental status changes, high glucose, admitted for DKA with severe high anion gap metabolic acidosis, started on insulin drip, received multiple liters of IV fluids. - Initially anuric DIYA likely secondary to ATN, hypotension, DKA. Patient has normal baseline creatinine. Renal ultrasound without any hydronephrosis. Massive nephrotic range proteinuria, presumably this is related to diabetes (A1C ranging 10-12% April 2023 to present). He had serologies done before which were negative. initially creatinine and urine output was improving, creatinine then started to trend upward/ Urine output dropping off. On 01/11 serum creatinine 6.15. HD initiated 01/11 today 3rd treatment, 3K bath. Likely will not plan for any [employer] over the weekend unless acute need arises. Labs ordered for am. Continue to monitor for renal recovery. Extubated today Assessment and plan reviewed with Dr. Lopez
[2025-01-13] MEDS: Pantoprazole Sodium 40 MG in 0.9% Normal Saline (100mL MB+) 100 ML 330 MG IV ×2 (11:24→22:42)
[2025-01-13] MEDS: fentaNYL 100 MCG/2 ML Ampul 25 MCG IV (11:50)
[2025-01-13] MEDS: Dext 5%-0.45% NS 1,000 ML 75 ML IV (13:04)
[2025-01-13 16:56] LABS: Hematocrit 25.5 % (40-54); Hemoglobin 8.8 g/dL (13.0-16.5); Immature Granulocytes Count 0.050 X10^3/uL (0.0-0.0); Mean Corp Hgb Conc 34.5 g/dL (32-36); Mean Corpuscular Volume 83.9 fL (80-94); Mean Platelet Vol. 12.1 fl (6.2-12.0); NRBC Flagged by Analyzer 0 % (0-5); Platelet Count 111 K/mm3 (150-450); RBC Distribution Width CV 14.7 % (11.6-14.6); RBC Distribution Width SD 45.0 fl (35.1-43.9); Red Blood Count 3.04 M/mm3 (4.6-6.2); White Blood Count 5.8 K/mm3 (4.4-11.0)
[2025-01-14] VITALS (33 sets, daily range): BP systolic 141–188; BP diastolic 70–91; PULSE 85–115; RESP 16–37; TEMP 36.9–37.9; O2SAT 91–99; BMI 25.8
[2025-01-14 01:14] LABS: CPK Total, Creatine Kinase 154 U/L (24-195)
[2025-01-14] MEDS: Dext 5%-0.45% NS 1,000 ML 75 ML IV (01:20)
[2025-01-14 01:37] LABS: Triglycerides 151 mg/dL
[2025-01-14] MEDS: 0.9% Saline Lock 10 ML Syringe IV ×2 (05:28→22:50)
[2025-01-14] MEDS: Heparin Injection (Vial) 5,000 UNIT/ML VIAL 5000 UNIT SC ×3 (05:29→22:56)
[2025-01-14 06:04] LABS: Anion Gap 17 (5-15); BUN 52 mg/dL (4-19); BUN/Creat Ratio 10.0 RATIO (10-20); Calcium,Total 8.7 mg/dL (7.6-11.0); Carbon Dioxide 17.0 mmol/L (21.0-32.0); Chloride 102 mmol/L (98-108); Estimated Creatinine Clearance 17.51 ml/min (50-250); Glucose 123 mg/dL (70-99); Magnesium 1.4 mg/dL (1.5-2.2); Potassium 3.5 mmol/L (3.3-5.1)
--- NOTE | 2025-01-14 08:00 | PN.HOSP_ITS ---
Reason for Visit Reason for Visit: Diagnoses Type 1 diabetes mellitus with ketoacidosis with coma (01/06/25) Type 2 diabetes mellitus with ketoacidosis without coma (01/06/25) Acute respiratory failure with hypoxia (01/06/25) Acute kidney failure, unspecified (01/06/25) Altered mental status, unspecified (01/06/25) Objective Data Objective Data Vital Signs: Vital Signs Temp Pulse Resp BP Pulse Ox O2 Del Method O2 Flow Rate 100 F H 110 H 22 H 172/81 H 91 Nasal Cannula 4 01/14/25 05:00 01/14/25 06:00 01/14/25 06:00 01/14/25 06:00 01/14/25 07:33 01/14/25 07:33 01/14/25 07:33 FiO2 25 01/13/25 07:00 Oxygen Flow Rate (L/min) 4 Oxygen Delivery Method Nasal Cannula Weight: 180 lb 5.41 oz Body Mass Index (BMI) 25.8 Intake & Output: Intake and Output for Last 24 Hours 01/12/25 01/13/25 01/14/25 23:59 23:59 23:59 Intake Total 3677.52 / 3828.32 1809.57 / 1827.97 1076.13 / 1076.13 Output Total 735 / 735 935 / 935 60 / 60 Balance 2942.52 / 3093.32 874.57 / 892.97 1016.13 / 1016.13 Lab / Micro Data 01/13/25 04:55 01/14/25 05:30 Labs: Laboratory Results - last 24 hr 01/13/25 04:55: WBC 5.8, RBC 3.04 L, Hgb 8.8 L, Hct 25.5 L, MCV 83.9, MCH 28.9, MCHC 34.5, RDW Std Deviation 45.0 H, RDW Coeff of Candace 14.7 H, Plt Count 111 L, M PV 12.1 H, Immature Gran % (Auto) 0.900, Neut % (Auto) 65.0, Lymph % (Auto) 14.2 L, Pepin % (Auto) 14.0 H, Eos % (Auto) 5.7 H, Baso % (Auto) 0.2, Absolute Neuts (auto) 3.8, Absolute Lymphs (auto) 0.82 L, Nucleated RBC % 0, Sodium 138, P otassium 3.1 L, Chloride 103, Carbon Dioxide 19.5 L, Anion Gap 15, BUN 57 H, C reatinine 4.80 H, Estim Creat Clear Calc 19.01 L, Est GFR (MDRD) Non-Af 14 L, BUN/Creatinine Ratio 11.8, Glucose 101 H, Calcium 8.6 01/13/25 11:32: POC Glucose 87 01/13/25 12:15: POC Glucose 64 L 01/13/25 19:00: POC Glucose 116 H 01/13/25 22:41: POC Glucose 89 01/14/25 00:21: Total Creatine Kinase 154, Triglycerides 151, POC Glucose 84 01/14/25 05:30: Sodium 136, Potassium 3.5, Chloride 102, Carbon Dioxide 17.0 L, Anion Gap 17 H, BUN 52 H, Creatinine 5.21 H, Estim Creat Clear Calc 17.51 L, Est GFR (MDRD) Non-Af 13 L, BUN/Creatinine Ratio 10.0, Glucose 123 H, Calcium 8.7, Phosphorus 3.4, Magnesium 1.4 L Micro: Microbiology 01/06/25 16:28 Blood Culture (Wb) - Anticubital Left Blood Culture - Final No growth in 5 days. 01/06/25 16:41 Blood Culture (Wb) - Right Hand Blood Culture - Final No growth in 5 days. 01/07/25 Unknown Sputum, Induced/Lukens Gram Stain - Final 01/07/25 Unknown Sputum, Induced/Lukens Respiratory Culture - Final Presumptive C albicans 01/07/25 18:45 Urine Catheter - Brady Legionella Antigen - Final 01/07/25 18:45 Urine Catheter - Brady Streptococcus pneumoniae Antigen (M - Final 01/07/25 16:30 Nasal Secretion MRSA (PCR) - Final 01/07/25 09:32 Mucosa - Nasopharyngeal Respiratory Panel (PCR) - Final 01/06/25 22:15 Nasal Secretion MRSA (PCR) - Final Rhythm Strip Rhythm Strip: Sinus Tach Rate: 105 Physical Exam Narrative Seen and examined. The patient was extubated on 01/13/2025. He is still restless and agitated, thrashing about his limbs for more than 24 hours even on Precedex drip. Patient had right IJ temporary dialysis catheter inserted and large dialyzed short time yesterday. Tmax 99.7 Fahrenheit, sinus rhythm. On 30% FiO2, mean airway pressure 8.9. Patient was put back on propofol while he was agitated in the morning Physical exam: General: Awake, restless agitated. HEENT: Atraumatic, Normocephalic. Seated Oral: Oral mucosa dry Neck: Supple, No JVD, Negative Carotid Bruits. Right IJ dialysis catheter Chest wall/Lungs: Air entry diminished in bilateral lung bases. No gross upper respiratory transmitted sound/gurgling bilateral Cardiovascular: Sinus rhythm, soft heart sound, no M/G/R Abdomen: Bowel Sounds sluggish, Soft, Non Tender, Non-Distended : Anuria, Brady catheter, oliguria no renal angle tenderness. No suprapubic tenderness. Extremities: No edema, Capillary Refill Less than 3 Seconds. Left BKA. Extremities pale Skin: Multiple scabs in lower extremities Musculoskeletal: No Tenderness to Palpation of Joints or Extremities Neurological: No obvious lateralizing neurological sign, detailed neuroexam not done Psych/Mental Status: Agitated restless, and delirium Assessment & Plan Assessment/Plan (1) Acute hypoxic respiratory failure: (2) DKA (diabetic ketoacidoses): QUALIFIERS: Diabetes mellitus complication detail: with coma D iabetes mellitus type: type 1 Qualified Code(s): E10.11 - Type 1 diabetes mellitus with ketoacidosis with coma PLAN: Plan Patient is a 49-year-old male who presented to [facility] ED on 01/06/2025 with altered mental status and hyperglycemia. 1. DKA with persistent anion gap metabolic acidosis, poorly controlled type 1 diabetes mellitus with diabetic neuropathy ? Follows with Dr. Naik in the office and has had poor compliance with insulin pump noted. A1c 10.7% on admit, similar to last office A1c. Labs on admit consistent with DKA. Initial ABG with pH 6.93, pCO2 15, blood glucose 788 and bicarb on BMP was less than 5. Had good improvement on ABG initially with treatment with insulin drip. 01/12: Beta-hydroxybutyrate 0.3 in normal range. AG 17, bicarb 19, K2.7. In the interim, insulin drip was changed to intermittent subcu glargine and lispro insulin 01/14: Electrolytes potassium, sodium and chloride normal. Bicarb low, anion gap 17. Magnesium 1.4. Phosphorus 3.4. 2. Acute hypoxic respiratory failure ? Extrusion Technician following. Had worsening oxygen requirements on admit and chest x-ray showed severe bilateral pulmonary infiltrates. Intubated on morning of 01/07. Per superintendent sanitation, differential diagnosis includes pulmonary edema, aspiration event and ARDS. BNP elevated to 4000 but lower clinical suspicion for heart failure; echo with normal EF and no concerning findings. SBT completed on morning of 01/10 and unfortunately patient failed with concern for an aspiration event. Had bilious contents suctioned from ET tube and was suspected this may be due to gastroparesis from poorly controlled diabetes as above. Treating with Reglan as above. Continue to treat with IV cefepime and scheduled DuoNebs. Oxygen requirements remain low but patient with significant agitation with spontaneous awakening trials. Ventilator management and further recommendations per superintendent sanitation. 01/12: Still intubated. Continue IV cefepime, scheduled DuoNeb. 01/13: Patient was extubated on 01/13. He is in delirium with hyperactive, inattention and delirium advised low-dose Precedex drip 01/14: On 4 L of oxygen 3. Acute metabolic encephalopathy ? Extrusion Technician following as above. Presumed multifactorial from DKA with severe metabolic acidosis as well as respiratory failure. Remains intubated and sedated at this time. Has nonpurposeful movements but not following commands. Monitor. 6 01/14: Delirious. On Precedex drip. : In delirium. 4. Severe DIYA ? Nephrology following. Likely secondary to ATN primarily due to hypotension in setting of DKA with volume depletion. Baseline creatinine around 0.9. Creatinine 2.5 on admission. Significantly worsened initially and patient was anuric. However, with IV albumin and high-dose diuretics patient began to have significant urine output on 01/08. Unfortunately, creatinine only improved slightly and then has since been steadily worsening with minimal urine output. Most recent creatinine 6.15 on 01/11. Diamond Grinder made decision for dialysis. Extrusion Technician placed temporary HD line on 01/11 and plan is for dialysis to be initiated later this evening. Appreciate further nephrology recommendations. 01/12: Undergoing hemodialysis. 01/13: Still oliguric. On hemodialysis. 01/14: Dialysis as per account manager b2b recommendation 5. Acute on chronic anemia and thrombocytopenia since admission, ? Hemoglobin 12.9 on admit, baseline appears to be around 13-14. Hemoglobin downtrending during hospitalization but this was thought to be secondary to hemodilution from severe volume overload. Had one hemoglobin read of 8.4 on morning of 01/09; however hemoglobin was up to 10 on afternoon of 01/09 and has remained stable. No dark or bloody bowel movements noted. Will continue IV PPI twice daily for now. Monitor daily CBC. Will hold off on GI consult at this time. 01/12: Patient platelet count steadily decreased from 250K in July 08-158 on 01/07/2025, trough 52 on 01/09. Since that had slight recovery 01/13: On 4 L of oxygen through nasal cannula 6. Hyponatremia, resolved ? Sodium 122 on admit, corrected sodium 133 in setting of severe hyperglycemia. Resolved with IV fluids on admission. 7. Acute on chronic debility with history of left BKA ? PT/OT/case management following. Appreciate therapy recommendations. Chronic medical conditions: ? Class II obesity: BMI 37 on admit. Complicates hospital course, care and prognosis. ? History of PAD, hypertension, hyperlipidemia: Holding home amlodipine, lisinopril and statin. ? GERD: Treating with IV PPI twice daily as above. ? Hypothyroidism: Continue home Synthroid. DVT prophylaxis: Heparin subcu CODE STATUS: Full code, unverified Expected disposition: TBD Total time of the visit including total time spent in counseling or coordination of care, (more than 50% of the total time, spent in obtaining medical information from nurses and other ancillary care providers ,explaining to the patient about labs, imaging, diagnosis and management of active complex medical conditions), , review of labs and imaging is 35 minutes. Charges/Coding Visit Charges Inpatient E&M: 10572 Subs Hosp L3
[2025-01-14] MEDS: Dexmedetomidine 1,000 mcg in 0.9% NS 240 mL 7.4 MCG CONT INF (08:01)
--- NOTE | 2025-01-14 08:45 | RAD_ITS ---
PROCEDURE: CHEST 1 VIEW (PORTABLE) 01/14/2025 REASON FOR EXAM: SOB TECHNIQUE: Frontal view of the chest. COMPARISON: 01/13/2025 FINDINGS: Interval removal of endotracheal and enteric tubes. Right IJ CVC tip in SVC. Normal heart size. Interval new left upper and right upper airspace opacities. Findings concerning for multifocal pneumonia. No pleural effusion or pneumothorax. RAD/Chest 1 View (Portable) IMPRESSION: Interval removal of endotracheal and enteric tubes. Interval new left upper and right upper airspace opacities. Findings concernin g for multifocal pneumonia. Reading Location: [id number]
--- NOTE | 2025-01-14 08:45 | NURSING ---
Patients saturations dropped to 76%. Audible rhonchi in upper airway. Lung sounds rhonchi, crackles throughout. Patient unable to cough effectively nor follow commands well. Patient encouraged to cough several times and this RN assisted with suctioning. 02 increased to 12L HFNC and patient improved. Dr. Donald soon after at bedside. Orders given for NT suctioning as needed, Mucomyst, Bumex 2mg IV, Duonebs, CXR and chest therapy. notified patient failed his swallow eval per ST d/t weak cough and patient unable to control secretions well nor follow commands well. This RN continued to encourage patient to cough up his secretions and assisted with suctioning. 02 decreased to 5L HFNC. NT suction at bedside.
--- NOTE | 2025-01-14 09:46 | PCM.PN.TICU ---
Objective Data Objective Data Vital Signs: Vital Signs Last response Temperature 37.7 C H 01/14/25 05:00 Temperature Source Core 01/14/25 05:00 Pulse Rate 110 H 01/14/25 06:00 Pulse Strength Normal (2+) 01/13/25 10:00 Respiratory Rate 22 H 01/14/25 06:00 Respiratory Effort Non-Labored 01/14/25 04:00 Respiratory Depth Normal 01/14/25 04:00 Respiratory Pattern Normal 01/14/25 04:00 Blood Pressure 172/81 H 01/14/25 06:00 Blood Pressure Mean 111 01/14/25 06:00 Blood Pressure Source Monitor 01/14/25 06:00 Blood Pressure Position Semi-Fowlers 01/14/25 06:00 Blood Pressure Location Left Arm 01/14/25 06:00 Pulse Ox 91 01/14/25 07:33 Oxygen Delivery Method Nasal Cannula 01/14/25 07:33 Oxygen Flow Rate (L/min) 4 01/14/25 07:33 Fraction of Inspired Oxygen (FIO2) 01/13/25 07:00 I&O: I&O Last 24 Hours 01/13/25 01/13/25 01/14/25 11:59 23:59 11:59 Intake Total 1112.73 / 1827.97 696.84 / 1827.97 1595.54 / 1595.54 Output Total 125 / 935 810 / 935 60 / 60 Balance 987.73 / 892.97 -113.16 / 892.97 1535.54 / 1535.54 I&O: Total Stay 01/06/25 14:10 thru 01/14/25 09:30 Intake Total 45764.67 Output Total 93382 Balance 07822.67 Current Meds Ordered / Administered: Current meds ordered / Administered Generic Name Dose Route Start Last Admin Trade Name Freq PRN Reason Stop Dose Admin Acetaminophen 650 mg 01/07/25 19:44 01/13/25 04:10 Acetaminophen 650 Mg/20 Ml Udc GT 650 mg Q6H PRN PRN Administration Pain 1-10 Or Fever>100.7 Acetylcysteine 800 mg 01/14/25 09:30 Acetylcysteine 800 Mg/4 Ml Vial.Neb. INHALATION 01/17/25 23:59 Q8H.RT PEPITO Albuterol/Ipratropium 3 ml 01/13/25 09:33 Ipratropium/Albuterol Sulfate 3 Ml Ampul.Neb INHALATION Q6HWA.RT PRN SHORTNESS OF BREATH Albuterol/Ipratropium 3 ml 01/14/25 08:30 Ipratropium/Albuterol Sulfate 3 Ml Ampul.Neb INHALATION 01/19/25 23:59 Q4HWA.RT PEPITO Calamine/Phenol 1 applic 01/12/25 14:07 01/14/25 05:28 Menthol/Lanolin/Calamine/Znox 113 Gm Tube TOPICAL 1 applic TID PEPITO Administration Protocol Chlorhexidine Gluconate 15 ml 01/07/25 22:00 01/13/25 22:43 Chlorhexidine 15 Ml PO Not Given BID PEPITO Chlorhexidine Gluconate 1 each 01/08/25 10:00 01/13/25 00:29 Chlorhexidine Gluc 2% Cloth 1 Each Towelette TOPICAL 1 each DAILY PEPITO Administration Glucagon 1 mg 01/08/25 19:43 Glucagon 1 Mg/Ml Syringe IM X1 PRN Hypoglycemia Protocol Heparin Sodium (Porcine) 5,000 unit 01/08/25 22:00 01/14/25 05:29 Heparin Injection (Vial) 5,000 Unit/Ml Vial SC 5,000 unit Q8 PEPITO Administration Heparin Sodium (Porcine) 2,500 units 01/11/25 12:54 01/12/25 10:56 Heparin 10,000 Units/10 Ml Vial IV 2,500 units UD PRN Administration Dialysis Cath Heparin Flush Sodium Chloride 250 mls @ 15 mls/hr 01/06/25 21:53 01/13/25 23:35 IV 0 mls/hr .[id number] PRN Infusion Saline Flush Sodium Chloride 250 mls @ 15 mls/hr 01/06/25 21:53 01/10/25 04:31 IV Infused .[id number] PRN Infusion Additional IVPB Infusion Dextrose 250 mls @ 0 mls/hr 01/08/25 19:43 01/13/25 11:05 Dextrose 10%-Water IV Infused .Q0M PRN Infusion HYPOGLYCEMIA Protocol As Directed Pantoprazole Sodium 40 mg/ 100 mls @ 330 mls/hr 01/09/25 08:00 01/13/25 23:01 Sodium Chloride IV Infused Q12 PEPITO Infusion Dextrose 250 mls @ 999 mls/hr 01/09/25 11:00 01/13/25 18:30 Dextrose 10%-Water IV Infused .Q16M PRN Infusion Hypoglycemic Protocol Protocol Dexmedetomidine HCl 1,000 mcg/ 250 mls @ 9.188 mls/hr 01/11/25 15:30 01/14/25 09:30 Sodium Chloride CONT INF 0 mcg/kg/hr .[id number] PEPITO 0 mls/hr Titration Protocol 0.5 MCG/KG/HR Dextrose/Sodium Chloride 1,000 mls @ 75 mls/hr 01/13/25 12:45 01/14/25 08:00 IV 75 mls/hr .[id number] PEPITO Infusion Insulin Glargine 15 unit 01/11/25 22:00 01/13/25 22:43 Insulin Glargine-Yfgn 100 Unit/Ml Pen SC Not Given BID [facility] Insulin Human Lispro 0 unit 01/13/25 18:00 01/14/25 05:28 Insulin Lispro 100 Unit/Ml Insuln.Pen SC Not Given Q6 [facility] Protocol Labetalol HCl 20 mg 01/13/25 12:46 01/13/25 23:07 Labetalol 20 Mg/4 Ml Vial IV 20 mg Q4H PRN PRN Administration SBP GREATER THAN 180 Levothyroxine Sodium 25 mcg 01/08/25 06:00 01/14/25 05:30 Levothyroxine 25 Mcg Tablet GT Not Given DAILY@0600 [facility] Metoclopramide HCl 5 mg 01/11/25 14:00 01/14/25 05:29 Metoclopramide 10 Mg/2 Ml Vial IV 5 mg Q8 PEPITO Administration Ondansetron HCl 4 mg 01/06/25 18:55 Ondansetron 4 Mg/2 Ml Vial IV Q8H PRN PRN NAUSEA/VOMITING Sodium Chloride 10 - 40 ml 01/06/25 21:53 01/14/25 05:28 0.9% Saline Lock 10 Ml Syringe IV 20 ml UD PRN Administration SALINE FLUSH Sodium Chloride 10 ml 01/11/25 12:54 0.9% Saline Lock 10 Ml Syringe IV UD PRN Dialysis Catheter Flush Lab / Micro Data Attestation: I reviewed the patient's lab results. 01/13/25 04:55 01/14/25 05:30 Labs: Laboratory Results - last 24 hr 01/13/25 04:55: WBC 5.8, RBC 3.04 L, Hgb 8.8 L, Hct 25.5 L, MCV 83.9, MCH 28.9, MCHC 34.5, RDW Std Deviation 45.0 H, RDW Coeff of Candace 14.7 H, Plt Count 111 L, MPV 12.1 H, Immature Gran % (Auto) 0.900, Neut % (Auto) 65.0, Lymph % (Auto) 14.2 L, [place] % (Auto) 14.0 H, Eos % (Auto) 5.7 H, Baso % (Auto) 0.2, Absolute Neuts (auto) 3.8, Absolute Lymphs (auto) 0.82 L, Nucleated RBC % 0 01/13/25 11:32: POC Glucose 87 01/13/25 12:15: POC Glucose 64 L 01/13/25 19:00: POC Glucose 116 H 01/13/25 22:41: POC Glucose 89 01/14/25 00:21: Total Creatine Kinase 154, Triglycerides 151, POC Glucose 84 01/14/25 05:30: Sodium 136, Potassium 3.5, Chloride 102, Carbon Dioxide 17.0 L, Anion Gap 17 H, BUN 52 H, Creatinine 5.21 H, Estim Creat Clear Calc 17.51 L, Est GFR (MDRD) Non-Af 13 L, BUN/Creatinine Ratio 10.0, Glucose 123 H, Calcium 8.7, Phosphorus 3.4, Magnesium 1.4 L Rhythm Strip Rhythm Strip: Sinus Tach Rate: 105 Imaging Radiology Impression Chest X-Ray 01/14/25 08:45 IMPRESSION: Interval removal of endotracheal and enteric tubes. Interval new left upper and right upper airspace opacities. Findings concerning for multifocal pneumonia. Reading Location: [id number] Reviewed personally, acute pulmonary edema vs PNA/aspiration Assessment and Plan . Assessment and plan: ICU Problem List: Acute on acute hypoxemic respiratory failure Acute pulmonary edema vs aspiration PNA vs HCAP ICU myopathy/decondition Plan: Given Tm 99.9, repeat blood cx and sputum cs Chest PT q4h with vest q8h mucomyst and q4h duoneb bumetanide 2mg IV x1 may need CRRT vs HD for volume removal patient states he is ok with reintubation and wants to avoid discussed briefly with patient that if he were to be reintubated, it would weakn his recovery further and he may need trach PT/OT and OOBTC today Dino Donald MD PCCM [facility] Critical Care Time: 55 min The entirety of this encounter was done via Telemedicine Physical Exam Const Constitutional Narrative: mild distress General Appearance: in distress, ill appearing and frail HEENT normocephalic, head/scalp atraumatic and moist oral mucous membranes Eyes PERRL, EOMs intact bilaterally, conjunctivae normal and no scleral icterus Neck supple and no JVD Lymph Lymphatic: no lymphadenopathy noted Resp Effort and Inspection: tachypneic and uses accessory muscles Auscultation: rales and rhonchi Cardio regular rhythm Rate: tachycardic GI normal to inspection, nondistended, normoactive bowel sounds, soft to palpation and non-tender no CVA tenderness Extremity no clubbing, cyanosis or edema Skin no rashes or lesions noted Neuro oriented x3, CN's II-XII intact bilaterally, moves all extremities and no focal motor deficits Psych cooperative and affect normal Subjective Subjective CC: SOB/ESTES HPI Rev: extubated 01/13 to 4LNC O2. DKA resolved. 01/14 - no o/n problems per AM nurse handoff, but AM nurse had to almost immediately increase his NC to 12Lpm after acute desat this AM to 70%. Patient audibly gurgling. No self suctioning. Ppoor cough. Expectorating white thin secretions. Tmax 99.9. HTNive and tachycardic. Sinus rhythm. Lungs coarse or diminished. CXR from yest showing LLL PNA. Patient sluggish, on precedex at 0.03. Did get HD yesterday, net (+) 1.5L for admission, but neutral during HD yesterday. ROS: 12 or more systems reviewed and are negative except as above.
[2025-01-14] MEDS: Pantoprazole Sodium 40 MG in 0.9% Normal Saline (100mL MB+) 100 ML 330 MG IV ×2 (10:28→22:50)
[2025-01-14] MEDS: CHLORHEXIDINE GLUC 2% CLOTH 1 EACH TOWELETTE TOPICAL (10:28)
[2025-01-14] MEDS: Acetylcysteine 800 MG/4 ML VIAL.NEB. INHALATION ×2 (11:01→19:31)
--- NOTE | 2025-01-14 11:07 | CASEMGMT ---
Social Work Pt is extubated. SW did attempt to speak w/pt, introduced self and role of SW in the hospital. SW explained we are following along to help with discharge planning. Pt is not feeling well at this time, SW will continue to follow and speak w/pt again. Pt as per RN may be reintubated. NOAH Pope
--- NOTE | 2025-01-14 18:13 | PN.RENAL_ITS ---
Subjective Subjective no new complaints Objective Data Objective Data Vital Signs: Vital Signs Temp Pulse Resp BP Pulse Ox O2 Del Method O2 Flow Rate 98.6 F 100 18 163/77 H 98 High Flow 4 01/14/25 17:00 01/14/25 17:00 01/14/25 17:00 01/14/25 17:00 01/14/25 17:00 01/14/25 17:00 01/14/25 17:00 FiO2 25 01/13/25 07:00 Oxygen Flow Rate (L/min) 4 Oxygen Delivery Method High Flow Weight: 81.8 kg Body Mass Index (BMI) 25.8 Intake & Output: Intake and Output for Last 24 Hours 01/12/25 01/13/25 01/14/25 23:59 23:59 23:59 Intake Total 3677.52 / 3828.32 1809.57 / 1827.97 2026.79 / 2026.79 Output Total 735 / 735 935 / 935 285 / 285 Balance 2942.52 / 3093.32 874.57 / 892.97 1741.79 / 1741.79 Lab / Micro Data 01/13/25 04:55 01/14/25 05:30 Labs: Laboratory Results - last 24 hr 01/13/25 19:00: POC Glucose 116 H 01/13/25 22:41: POC Glucose 89 01/14/25 00:21: Total Creatine Kinase 154, Triglycerides 151, POC Glucose 84 01/14/25 05:30: Sodium 136, Potassium 3.5, Chloride 102, Carbon Dioxide 17.0 L, Anion Gap 17 H, BUN 52 H, Creatinine 5.21 H, Estim Creat Clear Calc 17.51 L, Est GFR (MDRD) Non-Af 13 L, BUN/Creatinine Ratio 10.0, Glucose 123 H, Calcium 8.7, Phosphorus 3.4, Magnesium 1.4 L 01/14/25 11:11: POC Glucose 163 H Micro: Microbiology 01/06/25 16:28 Blood Culture (Wb) - Anticubital Left Blood Culture - Final No growth in 5 days. 01/06/25 16:41 Blood Culture (Wb) - Right Hand Blood Culture - Final No growth in 5 days. 01/07/25 Unknown Sputum, Induced/Lukens Gram Stain - Final 01/07/25 Unknown Sputum, Induced/Lukens Respiratory Culture - Final Presumptive C albicans 01/07/25 18:45 Urine Catheter - Brady Legionella Antigen - Final 01/07/25 18:45 Urine Catheter - Brady Streptococcus pneumoniae Antigen (M - Final 01/07/25 16:30 Nasal Secretion MRSA (PCR) - Final 01/07/25 09:32 Mucosa - Nasopharyngeal Respiratory Panel (PCR) - Final 01/06/25 22:15 Nasal Secretion MRSA (PCR) - Final Radiography Diagnostic Testing: Radiology Impression Chest X-Ray 01/14/25 08:45 IMPRESSION: Interval removal of endotracheal and enteric tubes. Interval new left upper and right upper airspace opacities. Findings concerning for multifocal pneumonia. Reading Location: [facility] Rhythm Strip Rhythm Strip: Sinus Tach Rate: 105 Physical Exam Narrative no acute distress S1, S2, RRR Breath sounds clear anteriorly. No rales or rhonchi Abdomen soft, nondistended, positive bowel sounds No edema, left BKA, no edema to thighs Nontunneled right IJ hemodialysis catheter accessed for hemodialysis. Dressing clean, dry and intact Assessment & Plan Assessment/Plan (1) DIYA (acute kidney injury): (2) Altered mental status: (3) Acute hypoxic respiratory failure: PLAN: Plan This is a 49-year-old male with past medical history significant for diabetes mellitus type 1, hypothyroidism, alcohol abuse presented to the ER yesterday with altered mental status changes, high glucose, admitted for DKA with severe high anion gap metabolic acidosis, started on insulin drip, received multiple liters of IV fluids. - Initially anuric DIYA likely secondary to ATN, hypotension, DKA. Patient has normal baseline creatinine. Renal ultrasound without any hydronephrosis. Massive nephrotic range proteinuria, presumably this is related to diabetes (A1C ranging 10-12% April 2023 to present). He had serologies done before which were negative. initially creatinine and urine output was improving, creatinine then started to trend upward/ Urine output dropping off. On 01/11 serum creatinine 6.15. HD initiated 01/11 3rd treatment 01/13/25 next HD thursday
[2025-01-14] MEDS: Insulin Glargine-YFGN 100 UNIT/ML Pen 15 UNIT SC (22:57)
[2025-01-15] VITALS (29 sets, daily range): BP systolic 136–173; BP diastolic 72–98; PULSE 84–118; RESP 11–39; TEMP 37.6–43.5; O2SAT 21–99; BMI 26.0
[2025-01-15] MEDS: Heparin Injection (Vial) 5,000 UNIT/ML VIAL 5000 UNIT SC ×3 (05:21→21:40)
[2025-01-15 05:37] LABS: Magnesium 1.5 mg/dL (1.5-2.2)
[2025-01-15] MEDS: Acetylcysteine 800 MG/4 ML VIAL.NEB. INHALATION (07:19)
[2025-01-15 08:24] LABS: Hematocrit 26.8 % (40-54); Hemoglobin 9.3 g/dL (13.0-16.5); Immature Granulocytes Count 0.140 X10^3/uL (0.0-0.0); Mean Corp Hgb Conc 34.7 g/dL (32-36); Mean Corpuscular Volume 84.0 fL (80-94); Mean Platelet Vol. 11.4 fl (6.2-12.0); NRBC Flagged by Analyzer 0 % (0-5); Platelet Count 186 K/mm3 (150-450); RBC Distribution Width CV 14.9 % (11.6-14.6); RBC Distribution Width SD 45.3 fl (35.1-43.9); Red Blood Count 3.19 M/mm3 (4.6-6.2); White Blood Count 16.1 K/mm3 (4.4-11.0)
--- NOTE | 2025-01-15 08:32 | PN.HOSP_ITS ---
Reason for Visit Reason for Visit: Diagnoses Type 1 diabetes mellitus with ketoacidosis with coma (01/06/25) Type 2 diabetes mellitus with ketoacidosis without coma (01/06/25) Acute respiratory failure with hypoxia (01/06/25) Acute kidney failure, unspecified (01/06/25) Altered mental status, unspecified (01/06/25) Objective Data Objective Data Vital Signs: Vital Signs Temp Pulse Resp BP Pulse Ox O2 Del Method O2 Flow Rate 100.4 F H 116 H 32 H 150/80 H 95 Nasal Cannula 2 01/15/25 08:00 01/15/25 08:00 01/15/25 08:00 01/15/25 08:00 01/15/25 08:00 01/15/25 08:00 01/15/25 08:00 FiO2 25 01/13/25 07:00 Oxygen Flow Rate (L/min) 2 Oxygen Delivery Method Nasal Cannula Weight: 181 lb 7.047 oz Body Mass Index (BMI) 26.0 Intake & Output: Intake and Output for Last 24 Hours 01/13/25 01/14/25 01/15/25 23:59 23:59 23:59 Intake Total 1809.57 / 1827.97 2026.79 / 2026.79 100 / 100 Output Total 935 / 935 460 / 535 120 / 120 Balance 874.57 / 892.97 1566.79 / 1491.79 -20 / -20 Lab / Micro Data 01/15/25 08:15 01/14/25 05:30 Labs: Laboratory Results - last 24 hr 01/14/25 11:11: POC Glucose 163 H 01/14/25 18:27: POC Glucose 177 H 01/14/25 22:48: POC Glucose 192 H 01/15/25 04:40: Phosphorus 5.2 H, Magnesium 1.5 01/15/25 05:20: POC Glucose 156 H 01/15/25 08:15: WBC 16.1 H, RBC 3.19 L, Hgb 9.3 L, Hct 26.8 L, MCV 84.0, MCH 29.2, MCHC 34.7, RDW Std Deviation 45.3 H, RDW Coeff of Candace 14.9 H, Plt Count 186, MPV 11.4, Immature Gran % (Auto) 0.900, Neut % (Auto) 86.1 H, Lymph % (Auto) 5.4 L, [place] % (Auto) 6.7, Eos % (Auto) 0.7, Baso % (Auto) 0.2, Absolute Neuts (auto) 13.8 H, Absolute Lymphs (auto) 0.87, Nucleated RBC % 0 Micro: Microbiology 01/06/25 16:28 Blood Culture (Wb) - Anticubital Left Blood Culture - Final No growth in 5 days. 01/06/25 16:41 Blood Culture (Wb) - Right Hand Blood Culture - Final No growth in 5 days. 01/07/25 Unknown Sputum, Induced/Lukens Gram Stain - Final 01/07/25 Unknown Sputum, Induced/Lukens Respiratory Culture - Final Presumptive C albicans 01/07/25 18:45 Urine Catheter - Brady Legionella Antigen - Final 01/07/25 18:45 Urine Catheter - Brady Streptococcus pneumoniae Antigen (M - Final 01/07/25 16:30 Nasal Secretion MRSA (PCR) - Final 01/07/25 09:32 Mucosa - Nasopharyngeal Respiratory Panel (PCR) - Final 01/06/25 22:15 Nasal Secretion MRSA (PCR) - Final Radiography Diagnostic Testing: Radiology Impression Chest X-Ray 01/14/25 08:45 IMPRESSION: Interval removal of endotracheal and enteric tubes. Interval new left upper and right upper airspace opacities. Findings concerning for multifocal pneumonia. Reading Location: [facility] Rhythm Strip Rhythm Strip: Sinus Tach Rate: 105 Physical Exam Narrative Seen and examined. trigonometry tutor reviewed. Patient having sinus tachycardia with PVCs. Temperature 100.4 ?F. Tachypneic. Currently n.p.o. patient looks more rested, quiet and responding compared to yesterday. Off Precedex drip The patient was extubated on 01/13/2025. Patient had right IJ temporary dialysis catheter inserted and large dialyzed short time yesterday. Tmax 99.7 Fahrenheit, sinus rhythm. On 30% FiO2, mean airway pressure 8.9. Patient was put back on propofol while he was agitated in the morning Physical exam: General: Awake, restless agitated. HEENT: Atraumatic, Normocephalic. Seated Oral: Oral mucosa dry Neck: Supple, No JVD, Negative Carotid Bruits. Right IJ dialysis catheter Chest wall/Lungs: Air entry diminished in bilateral lung bases. No gross upper respiratory transmitted sound/gurgling bilateral Cardiovascular: Sinus rhythm, soft heart sound, no M/G/R Abdomen: Bowel Sounds sluggish, Soft, Non Tender, Non-Distended : Oliguria Brady catheter, oliguria no renal angle tenderness. No suprapubic tenderness. Extremities: No edema, Capillary Refill Less than 3 Seconds. Left BKA. Extremities pale Skin: Multiple scabs in lower extremities Musculoskeletal: No Tenderness to Palpation of Joints or Extremities Neurological: No obvious lateralizing neurological sign, detailed neuroexam not done Psych/Mental Status: Quite. Behavior more organized Assessment & Plan Assessment/Plan (1) Acute hypoxic respiratory failure: (2) DKA (diabetic ketoacidoses): QUALIFIERS: Diabetes mellitus type: type 1 Diabetes mellitus complication detail: with coma Qualified Code(s): E10.11 - Type 1 diabetes mellitus with ketoacidosis with coma PLAN: Plan Patient is a 49-year-old male who presented to [facility] ED on 01/06/2025 with altered mental status and hyperglycemia. 1. DKA with persistent anion gap metabolic acidosis, poorly controlled type 1 diabetes mellitus with diabetic neuropathy ? Follows with Dr. Naik in the office and has had poor compliance with insulin pump noted. A1c 10.7% on admit, similar to last office A1c. Labs on admit consistent with DKA. Initial ABG with pH 6.93, pCO2 15, blood glucose 788 and bicarb on BMP was less than 5. Had good improvement on ABG initially with treatment with insulin drip. 01/12: Beta-hydroxybutyrate 0.3 in normal range. AG 17, bicarb 19, K2.7. In the interim, insulin drip was changed to intermittent subcu glargine and lispro insulin 01/14: Electrolytes potassium, sodium and chloride normal. Bicarb low, anion gap 17. Magnesium 1.4. Phosphorus 3.4. 01/15:: trigonometry tutor shows still sinus tachycardia and PVCs. Labs are pending 2. Acute hypoxic respiratory failure ? Terrazzo Mechanic Helper following. Had worsening oxygen requirements on admit and chest x-ray showed severe bilateral pulmonary infiltrates. Intubated on morning of 01/07. Per stem assembler, differential diagnosis includes pulmonary edema, aspiration event and ARDS. BNP elevated to 4000 but lower clinical suspicion for heart failure; echo with normal EF and no concerning findings. SBT completed on morning of 01/10 and unfortunately patient failed with concern for an aspiration event. Had bilious contents suctioned from ET tube and was suspected this may be due to gastroparesis from poorly controlled diabetes as above. Treating with Reglan as above. Continue to treat with IV cefepime and scheduled DuoNebs. Oxygen requirements remain low but patient with significant agitation with spontaneous awakening trials. Ventilator management and further recommendations per stem assembler. 01/12: Still intubated. Continue IV cefepime, scheduled DuoNeb. 01/13: Patient was extubated on 01/13. He is in delirium with hyperactive, inattention and delirium advised low-dose Precedex drip 01/14: On 4 L of oxygen 3. Acute metabolic encephalopathy ? Terrazzo Mechanic Helper following as above. Presumed multifactorial from DKA with severe metabolic acidosis as well as respiratory failure. Remains intubated and sedated at this time. Has nonpurposeful movements but not following commands. Monitor. 01/14: Delirious. On Precedex drip. 01/15: Patient follows simple command. Feels hungry. Delirium has resolved. Off Precedex drip 4. Severe DIYA ? Nephrology following. Likely secondary to ATN primarily due to hypotension in setting of DKA with volume depletion. Baseline creatinine around 0.9. Creatinine 2.5 on admission. Significantly worsened initially and patient was anuric. However, with IV albumin and high-dose diuretics patient began to have significant urine output on 01/08. Unfortunately, creatinine only improved slightly and then has since been steadily worsening with minimal urine output. Most recent creatinine 6.15 on 01/11. Section Cutter made decision for dialysis. [employer]ra[employer] Mechanic Helper placed temporary HD line on 01/11 and plan is for dialysis to be initiated later this evening. Appreciate further nephrology recommendations. 01/12: Undergoing hemodialysis. 01/13: Still oliguric. On hemodialysis. 01/14: Dialysis as per joint terminal attack controller recommendation 5. Acute on chronic anemia and thrombocytopenia since admission, ? Hemoglobin 12.9 on admit, baseline appears to be around 13-14. Hemoglobin downtrending during hospitalization but this was thought to be secondary to hemodilution from severe volume overload. Had one hemoglobin read of 8.4 on morning of 01/09; however hemoglobin was up to 10 on afternoon of 01/09 and has remained stable. No dark or bloody bowel movements noted. Will continue IV PPI twice daily for now. Monitor daily CBC. Will hold off on GI consult at this time. 01/12: Patient platelet count steadily decreased from 250K in July 08 24-158 on 01/07/2025, trough 52 on 01/09. Since that had slight recovery 01/13: On 4 L of oxygen through nasal cannula 6. Hyponatremia, resolved ? Sodium 122 on admit, corrected sodium 133 in setting of severe hyperglycemia. Resolved with IV fluids on admission. 7. Acute on chronic debility with history of left BKA ? PT/OT/case management following. Appreciate therapy recommendations. Chronic medical conditions: ? Class II obesity: BMI 37 on admit. Complicates hospital course, care and prognosis. ? History of PAD, hypertension, hyperlipidemia: Holding home amlodipine, lisinopril and statin. ? GERD: Treating with IV PPI twice daily as above. ? Hypothyroidism: Continue home Synthroid. DVT prophylaxis: Heparin subcu CODE STATUS: Full code, unverified Expected disposition: TBD Total time of the visit including total time spent in counseling or coordination of care, (more than 50% of the total time, spent in obtaining medical information from nurses and other ancillary care providers ,explaining to the patient about labs, imaging, diagnosis and management of active complex medical conditions), , review of labs and imaging is 35 minutes. Charges/Coding Visit Charges Inpatient E&M: 80331 Subs Hosp L3
[2025-01-15 08:53] LABS: AST(SGOT) 33 U/L (<=37); Alanine Aminotransfer ALT/SGPT 37 U/L (<=46); Albumin, Serum 3.0 g/dL (3.5-5.0); Alkaline Phosphatase 140 U/L (40-129); Anion Gap 25 (5-15); BUN 66 mg/dL (4-19); BUN/Creat Ratio 10.0 RATIO (10-20); Calcium,Total 9.1 mg/dL (7.6-11.0); Carbon Dioxide 12.6 mmol/L (21.0-32.0); Chloride 100 mmol/L (98-108); Estimated Creatinine Clearance 13.76 ml/min (50-250); Globulin 2.3 g/dL (2.2-4.2); Glucose 163 mg/dL (70-99); Potassium 3.8 mmol/L (3.3-5.1)
--- NOTE | 2025-01-15 10:15 | PCM.PN.TICU ---
Objective Data Objective Data Vital Signs: Vital Signs Last response Temperature 38.0 C H 01/15/25 08:00 Temperature Source Core 01/15/25 08:00 Pulse Rate 116 H 01/15/25 08:00 Pulse Strength Normal (2+) 01/14/25 10:00 Respiratory Rate 32 H 01/15/25 08:00 Respiratory Effort Short of Breath 01/15/25 00:00 Respiratory Depth Shallow 01/15/25 04:00 Respiratory Pattern Tachypnea 01/15/25 07:21 Blood Pressure 150/80 H 01/15/25 08:00 Blood Pressure Mean 103 01/15/25 08:00 Blood Pressure Source Monitor 01/15/25 08:00 Blood Pressure Position Semi-Fowlers 01/15/25 08:00 Blood Pressure Location Left Arm 01/15/25 08:00 Pulse Ox 95 01/15/25 08:00 Oxygen Delivery Method Nasal Cannula 01/15/25 08:00 Oxygen Flow Rate (L/min) 2 01/15/25 08:00 Fraction of Inspired Oxygen (FIO2) 25 01/13/25 07:00 I&O: I&O Last 24 Hours 01/14/25 01/14/25 01/15/25 11:59 23:59 11:59 Intake Total 1695.54 / 2026.79 331.25 / 2026.79 100 / 100 Output Total 285 / 535 175 / 535 120 / 120 Balance 1410.54 / 1491.79 156.25 / 1491.79 -20 / -20 I&O: Total Stay 01/06/25 14:10 thru 01/15/25 06:00 Intake Total 26350.92 Output Total 03781 Balance 80537.92 Current Meds Ordered / Administered: Current meds ordered / Administered Generic Name Dose Route Start Last Admin Trade Name Freq PRN Reason Stop Dose Admin Acetaminophen 650 mg 01/07/25 19:44 01/13/25 04:10 Acetaminophen 650 Mg/20 Ml Udc GT 650 mg Q6H PRN PRN Administration Pain 1-10 Or Fever>100.7 Albuterol/Ipratropium 3 ml 01/14/25 08:30 01/15/25 07:19 Ipratropium/Albuterol Sulfate 3 Ml Ampul.Neb INHALATION 01/19/25 23:59 3 ml Q4HWA.RT PEPITO Administration Calamine/Phenol 1 applic 01/12/25 14:07 01/15/25 05:20 Menthol/Lanolin/Calamine/Znox 113 Gm Tube TOPICAL 1 applic TID PEPITO Administration Protocol Chlorhexidine Gluconate 15 ml 01/07/25 22:00 01/14/25 22:56 Chlorhexidine 15 Ml PO Not Given BID PEPITO Chlorhexidine Gluconate 1 each 01/08/25 10:00 01/14/25 10:28 Chlorhexidine Gluc 2% Cloth 1 Each Towelette TOPICAL 1 each DAILY PEPITO Administration Glucagon 1 mg 01/08/25 19:43 Glucagon 1 Mg/Ml Syringe IM X1 PRN Hypoglycemia Protocol Heparin Sodium (Porcine) 5,000 unit 01/08/25 22:00 01/15/25 05:21 Heparin Injection (Vial) 5,000 Unit/Ml Vial SC 5,000 unit Q8 PEPITO Administration Heparin Sodium (Porcine) 2,500 units 01/11/25 12:54 01/12/25 10:56 Heparin 10,000 Units/10 Ml Vial IV 2,500 units UD PRN Administration Dialysis Cath Heparin Flush Sodium Chloride 250 mls @ 15 mls/hr 01/06/25 21:53 01/13/25 23:35 IV 0 mls/hr .[id number] PRN Infusion Saline Flush Sodium Chloride 250 mls @ 15 mls/hr 01/06/25 21:53 01/10/25 04:31 IV Infused .[id number] PRN Infusion Additional IVPB Infusion Dextrose 250 mls @ 0 mls/hr 01/08/25 19:43 01/13/25 11:05 Dextrose 10%-Water IV Infused .Q0M PRN Infusion HYPOGLYCEMIA Protocol As Directed Dextrose 250 mls @ 999 mls/hr 01/09/25 11:00 01/13/25 18:30 Dextrose 10%-Water IV Infused .Q16M PRN Infusion Hypoglycemic Protocol Protocol Cefepime HCl 1 gm/ Sodium 50 mls @ 100 mls/hr 01/15/25 10:00 Chloride IV 01/15/25 10:29 Q24 PEPITO Fluconazole 400 mg in 200 mls @ 100 mls/hr 01/15/25 10:00 Diflucan Ivpb IV Q24 PEPITO Cefepime HCl 0.5 gm/ Sodium 55 mls @ 100 mls/hr 01/16/25 10:00 Chloride IV Q24 [facility] Insulin Glargine 15 unit 01/11/25 22:00 01/14/25 22:57 Insulin Glargine-Yfgn 100 Unit/Ml Pen SC 15 unit BID PEPITO Administration Insulin Human Lispro 0 unit 01/13/25 18:00 01/15/25 05:21 Insulin Lispro 100 Unit/Ml Insuln.Pen SC Not Given Q6 [facility] Protocol Labetalol HCl 20 mg 01/15/25 12:00 Labetalol 20 Mg/4 Ml Vial IV Q6H [facility] Levothyroxine Sodium 25 mcg 01/08/25 06:00 01/15/25 05:21 Levothyroxine 25 Mcg Tablet GT Not Given DAILY@0600 [facility] Metoclopramide HCl 5 mg 01/11/25 14:00 01/15/25 05:21 Metoclopramide 10 Mg/2 Ml Vial IV 5 mg Q8 PEPITO Administration Ondansetron HCl 4 mg 01/06/25 18:55 Ondansetron 4 Mg/2 Ml Vial IV Q8H PRN PRN NAUSEA/VOMITING Sodium Chloride 10 - 40 ml 01/06/25 21:53 01/14/25 22:50 0.9% Saline Lock 10 Ml Syringe IV 20 ml UD PRN Administration SALINE FLUSH Sodium Chloride 10 ml 01/11/25 12:54 0.9% Saline Lock 10 Ml Syringe IV UD PRN Dialysis Catheter Flush Lab / Micro Data Attestation: I reviewed the patient's lab results. 01/15/25 08:15 01/15/25 08:15 Labs: Laboratory Results - last 24 hr 01/14/25 11:11: POC Glucose 163 H 01/14/25 18:27: POC Glucose 177 H 01/14/25 22:48: POC Glucose 192 H 01/15/25 04:40: Phosphorus 5.2 H, Magnesium 1.5 01/15/25 05:20: POC Glucose 156 H 01/15/25 08:15: WBC 16.1 H, RBC 3.19 L, Hgb 9.3 L, Hct 26.8 L, MCV 84.0, MCH 29.2, MCHC 34.7, RDW Std Deviation 45.3 H, RDW Coeff of Candace 14.9 H, Plt Count 186, MPV 11.4, Immature Gran % (Auto) 0.900, Neut % (Auto) 86.1 H, Lymph % (Auto) 5.4 L, Park % (Auto) 6.7, Eos % (Auto) 0.7, Baso % (Auto) 0.2, Absolute Neuts (auto) 13.8 H, Absolute Lymphs (auto) 0.87, Nucleated RBC % 0, Sodium 137, Potassium 3.8, Chloride 100, Carbon Dioxide 12.6 L, Anion Gap 25 H, BUN 66 H, Creatinine 6.63 H, Estim Creat Clear Calc 13.76 L, Est GFR (MDRD) Non-Af 9 L, BUN/Creatinine Ratio 10.0, Glucose 163 H, Calcium 9.1, Total Bilirubin 0.35, AST 33, ALT 37, Alkaline Phosphatase 140 H, Total Protein 5.3 L, Albumin 3.0 L, Globulin 2.3, Albumin/Globulin Ratio 1.3 Rhythm Strip Rhythm Strip: Sinus Tach Rate: 105 Imaging Radiology Impression Chest X-Ray 01/14/25 08:45 IMPRESSION: Interval removal of endotracheal and enteric tubes. Interval new left upper and right upper airspace opacities. Findings concerning for multifocal pneumonia. Reading Location: [facility] Reviewed personally, acute pulmonary edema vs PNA/aspiration Assessment and Plan . Assessment and plan: ICU Problem List: Acute on acute hypoxemic respiratory failure Acute pulmonary edema vs aspiration PNA vs HCAP ICU myopathy/decondition Plan: Ideally, need PIV x2, but may need midline Given development of SIRS, need to pull pICC and/or TDC blood cx x2 fluconazole 400mg IV daily for gibran in sputum cefepime 1gm q24h needs HD MEHRDAD patient states he is ok with reintubation and wants to avoid discussed briefly with patient that if he were to be reintubated, it would weaken his recovery further and he may need trach PT/OT and OOBTC today Dino Donald MD PCCM [facility] Critical Care Time: 55 min The entirety of this encounter was done via Telemedicine Physical Exam Const Constitutional Narrative: mild distress General Appearance: ill appearing and frail HEENT normocephalic, head/scalp atraumatic and moist oral mucous membranes Eyes PERRL, EOMs intact bilaterally, conjunctivae normal and no scleral icterus Neck supple and no JVD Lymph Lymphatic: no lymphadenopathy noted Resp Effort and Inspection: tachypneic and uses accessory muscles Auscultation: rales and rhonchi Cardio regular rhythm Rate: tachycardic GI normal to inspection, nondistended, normoactive bowel sounds, soft to palpation and non-tender no CVA tenderness Extremity no clubbing, cyanosis or edema Skin no rashes or lesions noted Neuro oriented x3, CN's II-XII intact bilaterally, moves all extremities and no focal motor deficits Psych cooperative and affect normal Subjective Subjective CC: SOB/ESTES HPI Rev: extubated 01/13 to 4LNC O2. DKA resolved. 01/14 - no o/n problems per AM nurse handoff, but AM nurse had to almost immediately increase his NC to 12Lpm after acute desat this AM to 70%. Patient audibly gurgling. No self suctioning. Ppoor cough. Expectorating white thin secretions. Tmax 99.9. HTNive and tachycardic. Sinus rhythm. Lungs coarse or diminished. CXR from yest showing LLL PNA. Patient sluggish, on precedex at 0.03. Did get HD yesterday, net (+) 1.5L for admission, but neutral during HD yesterday. 01/15 - less gurgling when breathing, patient feels better re: breathing, but still mouth breathing and chest heaving. No paradoxus. ROS: 12 or more systems reviewed and are negative except as above.
[2025-01-15] MEDS: CHLORHEXIDINE GLUC 2% CLOTH 1 EACH TOWELETTE TOPICAL (11:40)
[2025-01-15] MEDS: Cefepime HCl 1 GM in 0.9% Normal Saline (50mL MB+) 50 ML IV (11:40)
[2025-01-15] MEDS: Fluconazole IVPB 200 MG/100 ML BAG 100 MG IV (12:12)
[2025-01-15] MEDS: Insulin Glargine-YFGN 100 UNIT/ML Pen 15 UNIT SC (21:43)
[2025-01-15] MEDS: 0.9% Saline Lock 10 ML Syringe IV (21:47)
[2025-01-16] VITALS (37 sets, daily range): BP systolic 112–182; BP diastolic 55–105; PULSE 74–112; RESP 14–29; TEMP 36.3–37.5; O2SAT 31–100; BMI 25.9; BMI 25.2
[2025-01-16] MEDS: Heparin Injection (Vial) 5,000 UNIT/ML VIAL 5000 UNIT SC ×3 (05:17→21:13)
--- NOTE | 2025-01-16 06:43 | PCM.PN.INT ---
Assessment & Plan Assessment/Plan (1) Acute hypoxic respiratory failure: (2) DKA (diabetic ketoacidoses): QUALIFIERS: Diabetes mellitus type: type 1 Diabetes mellitus complication detail: with coma Qualified Code(s): E10.11 - Type 1 diabetes mellitus with ketoacidosis with coma PLAN: Plan RECOMMENDATIONS: 1. Continue to wean supplemental oxygen to maintain saturations at or above 90%. 2. Continue antibiotics, pending repeat culture data. 3. Continue basal and sliding scale insulin coverage. 4. Ongoing dialysis support per nephrology recommendations. 5. Continue appropriate ICU prophylaxis. 6. Continue aggressive bronchopulmonary hygiene. IMPRESSIONS: 1. Acute hypoxemic respiratory failure Presumed secondary to underlying pneumonia with concern for inability to compensate for metabolic demands of DKA. With supportive care, including antimicrobials and invasive mechanical ventilatory support, the patient was able to be extubated on January 13. Plan to continue to wean supplemental oxygen to maintain saturations at or above 90%. Dietary advancement per speech therapy recommendations. Continue aggressive bronchopulmonary hygiene. 2. Diabetic ketoacidosis Resolved. Continue basal and sliding scale insulin coverage. 3. Acute kidney injury Most likely secondary to ischemic ATN in the setting of DKA and hypotension. Nephrology is currently following to assist with ongoing hemodialysis needs. 4. Chronic debility/history of hypertension/hyperlipidemia/peripheral arterial disease/GERD/hypothyroidism Complicates care, management, recovery and prognosis. Continue supportive measures as noted above. Physical therapy to work with the patient. This note was generated with [employer] dictation software. It may contain incorrect words, spelling, and punctuation that were not noted in checking the note before signing. Subjective Subjective The patient was seen and examined at the bedside this morning. Events from the last 24 hours have been reviewed. The patient is currently afebrile, hemodynamically stable and maintaining appropriate oxygen saturations on 2 L/min via nasal cannula. The patient is currently documented to be overall net +10 L for the hospitalization. There are plans to proceed with dialysis again this morning. Objective Data Objective Data The patient's most recent lab work, culture data and imaging studies have all been personally reviewed. Blood cultures are pending. Respiratory viral panel was negative. Strep and urine Legionella antigens were negative. Sputum culture has only demonstrated growth of presumptive Leanne albicans. Vital Signs: Vital Signs Temp Pulse Resp BP Pulse Ox O2 Del Method O2 Flow Rate 98.9 F 95 26 H 166/87 H 99 Nasal Cannula 2 06/30/25 06:00 01/16/25 06:00 01/16/25 06:00 01/16/25 06:00 01/16/25 06:00 01/16/25 06:00 01/16/25 06:00 FiO2 30 01/16/25 04:00 Oxygen Flow Rate (L/min) 2 Oxygen Delivery Method Nasal Cannula Weight: 180 lb 12.465 oz Body Mass Index (BMI) 25.9 Intake & Output: Intake and Output for Last 24 Hours 01/14/25 01/15/25 01/16/25 23:59 23:59 23:59 Intake Total 2026.79 / 2026.79 275.25 / 275.25 Output Total 460 / 535 620 / 620 Balance 1566.79 / 1491.79 -344.75 / -344.75 Lab / Micro Data Attestation: I reviewed the patient's lab results. 01/16/25 05:00 01/16/25 05:00 Labs: Laboratory Results - last 24 hr 01/15/25 08:15: WBC 16.1 H, RBC 3.19 L, Hgb 9.3 L, Hct 26.8 L, MCV 84.0, MCH 29.2, MCHC 34.7, RDW Std Deviation 45.3 H, RDW Coeff of Candace 14.9 H, Plt Count 186, MPV 11.4, Immature Gran % (Auto) 0.900, Neut % (Auto) 86.1 H, Lymph % (Auto) 5.4 L, Hendricks % (Auto) 6.7, Eos % (Auto) 0.7, Baso % (Auto) 0.2, Absolute Neuts (auto) 13.8 H, Absolute Lymphs (auto) 0.87, Nucleated RBC % 0, Sodium 137, Potassium 3.8, Chloride 100, Carbon Dioxide 12.6 L, Anion Gap 25 H, BUN 66 H, Creatinine 6.63 H, Estim Creat Clear Calc 13.76 L, Est GFR (MDRD) Non-Af 9 L, BUN/Creatinine Ratio 10.0, Glucose 163 H, Calcium 9.1, Total Bilirubin 0.35, AST 33, ALT 37, Alkaline Phosphatase 140 H, Total Protein 5.3 L, Albumin 3.0 L, Globulin 2.3, Albumin/Globulin Ratio 1.3 01/15/25 11:49: POC Glucose 132 H 01/15/25 17:52: POC Glucose 127 H 01/15/25 21:42: POC Glucose 142 H 01/16/25 00:00: POC Glucose 155 H 01/16/25 05:15: POC Glucose 138 H Micro: Microbiology 01/06/25 16:28 Blood Culture (Wb) - Anticubital Left Blood Culture - Final No growth in 5 days. 01/06/25 16:41 Blood Culture (Wb) - Right Hand Blood Culture - Final No growth in 5 days. 01/07/25 Unknown Sputum, Induced/Lukens Gram Stain - Final 01/07/25 Unknown Sputum, Induced/[place]ens Respiratory Culture - Final Presumptive C albicans 01/07/25 18:45 Urine Catheter - Brady Legionella Antigen - Final 01/07/25 18:45 Urine Catheter - Brady Streptococcus pneumoniae Antigen (M - Final 01/07/25 16:30 Nasal Secretion MRSA (PCR) - Final 01/07/25 09:32 Mucosa - Nasopharyngeal Respiratory Panel (PCR) - Final 01/06/25 22:15 Nasal Secretion MRSA (PCR) - Final ABG Data ABG results: ABG 01/11/25 07:25 Specimen Type ART Sample Site L Radial pH 7.34 L Bicarbonate Actual 19.4 L Total CO2 21 Base Excess -6 L O2 Saturation 97 O2 % 30.0 ABG pCO2 36.1 ABG pO2 98 Nito Test Positive Respiration Rate 16 O2 Delivery Device Adult Vent Vent Mode PRVC Tidal Volume 400.0 POC PEEP 5 Radiography Diagnostic Testing: Radiology Impression Chest X-Ray 01/13/25 03:00 IMPRESSION: Successful ETT positioning. Shifting airspace disease, correlate for aspiration and/or asymmetric edema. Reading Location: [place] [id number] Rhythm Strip Rhythm Strip: Sinus Tach Rate: 105 Physical Exam Const alert and no apparent distress General Appearance: cooperative and ill appearing HEENT normocephalic and head/scalp atraumatic Eyes PERRL, EOMs intact bilaterally and conjunctivae normal Neck supple General: trachea midline and CVC in place Chest inspection of chest normal Resp Auscultation: rhonchi and diminished lung sounds; Negative for rales or wheezes Cardio regular rate and regular rhythm GI soft to palpation and non-tender Extremity Extremity Narrative: Left BKA Neuro CN's II-XII intact bilaterally, moves all extremities and no focal motor deficits Psych Mood & Affect: flat affect Charges/Coding Visit Charges Inpatient E&M: 76861 Subs Hosp L2
[2025-01-16 06:49] LABS: Anion Gap 23 (5-15); BUN 76 mg/dL (4-19); BUN/Creat Ratio 10.2 RATIO (10-20); Calcium,Total 9.2 mg/dL (7.6-11.0); Carbon Dioxide 12.8 mmol/L (21.0-32.0); Chloride 104 mmol/L (98-108); Estimated Creatinine Clearance 12.22 ml/min (50-250); Glucose 141 mg/dL (70-99); Magnesium 1.7 mg/dL (1.5-2.2); Potassium 3.8 mmol/L (3.3-5.1)
[2025-01-16 07:03] LABS: Hematocrit 27.0 % (40-54); Hemoglobin 9.0 g/dL (13.0-16.5); Immature Granulocytes Count 0.110 X10^3/uL (0.0-0.0); Mean Corp Hgb Conc 33.3 g/dL (32-36); Mean Corpuscular Volume 85.7 fL (80-94); Mean Platelet Vol. 11.2 fl (6.2-12.0); NRBC Flagged by Analyzer 0 % (0-5); Platelet Count 199 K/mm3 (150-450); RBC Distribution Width CV 15.4 % (11.6-14.6); RBC Distribution Width SD 47.6 fl (35.1-43.9); Red Blood Count 3.15 M/mm3 (4.6-6.2); White Blood Count 14.2 K/mm3 (4.4-11.0)
--- NOTE | 2025-01-16 07:50 | PCM.PN.HOSP ---
Reason for Visit Reason for Visit: Diagnoses Type 1 diabetes mellitus with ketoacidosis with coma (01/06/25) Type 2 diabetes mellitus with ketoacidosis without coma (01/06/25) Acute respiratory failure with hypoxia (01/06/25) Acute kidney failure, unspecified (01/06/25) Altered mental status, unspecified (01/06/25) Objective Data Objective Data Vital Signs: Vital Signs Temp Pulse Resp BP Pulse Ox O2 Del Method O2 Flow Rate 98.9 F 95 26 H 166/87 H 99 Nasal Cannula 2 01/16/25 06:00 01/16/25 06:00 01/16/25 06:00 01/16/25 06:00 01/16/25 06:00 01/16/25 06:00 01/16/25 06:00 FiO2 30 01/16/25 04:00 Oxygen Flow Rate (L/min) 2 Oxygen Delivery Method Nasal Cannula Weight: 180 lb 12.465 oz Body Mass Index (BMI) 25.9 Intake & Output: Intake and Output for Last 24 Hours 01/14/25 01/15/25 01/16/25 23:59 23:59 23:59 Intake Total 2026.79 / 2026.79 275.25 / 275.25 Output Total 460 / 535 620 / 620 Balance 1566.79 / 1491.79 -344.75 / -344.75 Lab / Micro Data 01/16/25 05:00 01/16/25 05:00 Labs: Laboratory Results - last 24 hr 01/15/25 08:15: WBC 16.1 H, RBC 3.19 L, Hgb 9.3 L, Hct 26.8 L, MCV 84.0, MCH 29.2, MCHC 34.7, RDW Std Deviation 45.3 H, RDW Coeff of Candace 14.9 H, Plt Count 186, MPV 11.4, Immature Gran % (Auto) 0.900, Neut % (Auto) 86.1 H, Lymph % (Auto) 5.4 L, Dunn % (Auto) 6.7, Eos % (Auto) 0.7, Baso % (Auto) 0.2, Absolute Neuts (auto) 13.8 H, Absolute Lymphs (auto) 0.87, Nucleated RBC % 0, Sodium 137, Potassium 3.8, Chloride 100, Carbon Dioxide 12.6 L, Anion Gap 25 H, BUN 66 H, Creatinine 6.63 H, Estim Creat Clear Calc 13.76 L, Est GFR (MDRD) Non-Af 9 L, BUN/Creatinine Ratio 10.0, Glucose 163 H, Calcium 9.1, Total Bilirubin 0.35, AST 33, ALT 37, Alkaline Phosphatase 140 H, Total Protein 5.3 L, Albumin 3.0 L, Globulin 2.3, Albumin/Globulin Ratio 1.3 01/15/25 11:49: POC Glucose 132 H 01/15/25 17:52: POC Glucose 127 H 01/15/25 21:42: POC Glucose 142 H 01/16/25 00:00: POC Glucose 155 H 01/16/25 05:00: WBC 14.2 H, RBC 3.15 L, Hgb 9.0 L, Hct 27.0 L, MCV 85.7, MCH 28.6, MCHC 33.3, RDW Std Deviation 47.6 H, RDW Coeff of Candace 15.4 H, Plt Count 199, MPV 11.2, Immature Gran % (Auto) 0.800, Neut % (Auto) 80.8 H, Lymph % (Auto) 7.3 L, Dunn % (Auto) 9.2, Eos % (Auto) 1.5, Baso % (Auto) 0.4, Absolute Neuts (auto) 11.5 H, Absolute Lymphs (auto) 1.03, Nucleated RBC % 0, Sodium 140, Potassium 3.8, Chloride 104, Carbon Dioxide 12.8 L, Anion Gap 23 H, BUN 76 H, Creatinine 7.47 H*, Estim Creat Clear Calc 12.22 L, Est GFR (MDRD) Non-Af 8 L, BUN/Creatinine Ratio 10.2, Glucose 141 H, Calcium 9.2, Phosphorus 5.9 H, Magnesium 1.7 01/16/25 05:15: POC Glucose 138 H Micro: Microbiology 01/06/25 16:28 Blood Culture (Wb) - Anticubital Left Blood Culture - Final No growth in 5 days. 01/06/25 16:41 Blood Culture (Wb) - Right Hand Blood Culture - Final No growth in 5 days. 01/07/25 Unknown Sputum, Induced/Lukens Gram Stain - Final 01/07/25 Unknown Sputum, Induced/Lukens Respiratory Culture - Final Presumptive C albicans 01/07/25 18:45 Urine Catheter - Brady Legionella Antigen - Final 01/07/25 18:45 Urine Catheter - Brady Streptococcus pneumoniae Antigen (M - Final 01/07/25 16:30 Nasal Secretion MRSA (PCR) - Final 01/07/25 09:32 Mucosa - Nasopharyngeal Respiratory Panel (PCR) - Final 01/06/25 22:15 Nasal Secretion MRSA (PCR) - Final Rhythm Strip Rhythm Strip: Sinus Tach Rate: 105 Physical Exam Narrative Seen and examined. quality assurance monitor final reviewed. Patient having sinus rhythm at 95 beats per hour. BP 166/85 Patient is quite in talking care for her aunt. Ready to be hooked to the dialysis The patient was extubated on 01/13/2025. Patient had right IJ temporary dialysis catheter inserted and large dialyzed short time yesterday. Tmax 99.7 Fahrenheit, sinus rhythm. On 30% FiO2, mean airway pressure 8.9. Patient was put back on propofol while he was agitated in the morning Physical exam: General: Awake, alert, oriented x 3 HEENT: Atraumatic, Normocephalic. Seated Oral: Oral mucosa dry Neck: Supple, No JVD, Negative Carotid Bruits. Right IJ dialysis catheter Chest wall/Lungs: Air entry diminished in bilateral lung bases. Mild coarse transmitted sounds Cardiovascular: Sinus rhythm, soft heart sound, no M/G/R Abdomen: Bowel Sounds sluggish, Soft, Non Tender, Non-Distended : Oliguria Brady catheter, oliguria no renal angle tenderness. No suprapubic tenderness. Extremities: No edema, Capillary Refill Less than 3 Seconds. Left BKA. Extremities pale Skin: Multiple scabs in lower extremities Musculoskeletal: No Tenderness to Palpation of Joints or Extremities Neurological: No obvious lateralizing neurological sign, detailed neuroexam not done Psych/Mental Status: Quite. Behavior more organized Assessment & Plan Assessment/Plan (1) Acute hypoxic respiratory failure: (2) DKA (diabetic ketoacidoses): QUALIFIERS: Diabetes mellitus type: type 1 Diabetes mellitus complication detail: with coma Qualified Code(s): E10.11 - Type 1 diabetes mellitus with ketoacidosis with coma PLAN: Plan Patient is a 49-year-old male who presented to [facility] ED on 01/06/2025 with altered mental status and hyperglycemia. 1. DKA with persistent anion gap metabolic acidosis, poorly controlled type 1 diabetes mellitus with diabetic neuropathy ? Follows with Dr. Naik in the office and has had poor compliance with insulin pump noted. A1c 10.7% on admit, similar to last office A1c. Labs on admit consistent with DKA. Initial ABG with pH 6.93, pCO2 15, blood glucose 788 and bicarb on BMP was less than 5. Had good improvement on ABG initially with treatment with insulin drip. 01/12: Beta-hydroxybutyrate 0.3 in normal range. AG 17, bicarb 19, K2.7. In the interim, insulin drip was changed to intermittent subcu glargine and lispro insulin 01/14: Electrolytes potassium, sodium and chloride normal. Bicarb low, anion gap 17. Magnesium 1.4. Phosphorus 3.4. 01/15:: quality assurance monitor final shows still sinus tachycardia and PVCs. Electrolytes shows bicarb 12.6. Leukocytosis 16.1 K. Still n.p.o. undergoing evaluation by speech therapist. Transfer to PCU. 2. Acute hypoxic respiratory failure ? Patient Transport Orderly following. Had worsening oxygen requirements on admit and chest x-ray showed severe bilateral pulmonary infiltrates. Intubated on morning of 01/07. Per corporate security officer, differential diagnosis includes pulmonary edema, aspiration event and ARDS. BNP elevated to 4000 but lower clinical suspicion for heart failure; echo with normal EF and no concerning findings. SBT completed on morning of 01/10 and unfortunately patient failed with concern for an aspiration event. Had bilious contents suctioned from ET tube and was suspected this may be due to gastroparesis from poorly controlled diabetes as above. Treating with Reglan as above. Continue to treat with IV cefepime and scheduled DuoNebs. Oxygen requirements remain low but patient with significant agitation with spontaneous awakening trials. Ventilator management and further recommendations per corporate security officer. 01/12: Still intubated. Continue IV cefepime, scheduled DuoNeb. 01/13: Patient was extubated on 01/13. He is in delirium with hyperactive, inattention and delirium advised low-dose Precedex drip 01/14: On 4 L of oxygen 01/16 currently on 2 L of oxygen. 3. Acute metabolic encephalopathy ? Patient Transport Orderly following as above. Presumed multifactorial from DKA with severe metabolic acidosis as well as respiratory failure. Remains intubated and sedated at this time. Has nonpurposeful movements but not following commands. Monitor. 01/14: Delirious. On Precedex drip. 01/15: Patient follows simple command. Feels hungry. Delirium has resolved. Off Precedex drip 01/16: Patient is behaving more organized. 4. Severe DIYA ? Nephrology following. Likely secondary to ATN primarily due to hypotension in setting of DKA with volume depletion. Baseline creatinine around 0.9. Creatinine 2.5 on admission. Significantly worsened initially and patient was anuric. However, with IV albumin and high-dose diuretics patient began to have significant urine output on 01/08. Unfortunately, creatinine only improved slightly and then has since been steadily worsening with minimal urine output. Most recent creatinine 6.15 on 01/11. Office Agent made decision for dialysis. Patient Transport Orderly placed temporary HD line on 01/11 and plan is for dialysis to be initiated later this evening. Appreciate further nephrology recommendations. 01/12: Undergoing hemodialysis. 01/13: Still oliguric. On hemodialysis. 01/14: Dialysis as per tool room machinist recommendation 01/16: Plan for dialysis today 5. Acute on chronic anemia and thrombocytopenia since admission, ? Hemoglobin 12.9 on admit, baseline appears to be around 13-14. Hemoglobin downtrending during hospitalization but this was thought to be secondary to hemodilution from severe volume overload. Had one hemoglobin read of 8.4 on morning of 01/09; however hemoglobin was up to 10 on afternoon of 01/09 and has remained stable. No dark or bloody bowel movements noted. Will continue IV PPI twice daily for now. Monitor daily CBC. Will hold off on GI consult at this time. 01/12: Patient platelet count steadily decreased from 250K in July 08-158 on 01/07/2025, trough 52 on 01/09. Since that had slight recovery 01/13: On 4 L of oxygen through nasal cannula 6. Hyponatremia, resolved ? Sodium 122 on admit, corrected sodium 133 in setting of severe hyperglycemia. Resolved with IV fluids on admission. 7. Acute on chronic debility with history of left BKA ? PT/OT/case management following. Appreciate therapy recommendations. Chronic medical conditions: ? Class II obesity: BMI 37 on admit. Complicates hospital course, care and prognosis. ? History of PAD, hypertension, hyperlipidemia: Holding home amlodipine, lisinopril and statin. ? GERD: Treating with IV PPI twice daily as above. ? Hypothyroidism: Continue home Synthroid. DVT prophylaxis: Heparin subcu CODE STATUS: Full code, unverified Expected disposition: TBD Total time of the visit including total time spent in counseling or coordination of care, (more than 50% of the total time, spent in obtaining medical information from nurses and other ancillary care providers ,explaining to the patient about labs, imaging, diagnosis and management of active complex medical conditions), , review of labs and imaging is 35 minutes. Charges/Coding Visit Charges Inpatient E&M: 39437 Subs Hosp L3
--- NOTE | 2025-01-16 08:11 | CPS ---
Vest treatment not done at this time. Pt is getting dialysis at this time. Will hold treatment until pt is done.
[2025-01-16] MEDS: PureFlow B 3K Dialysis Soln 1 BAG 6 BAG PF (09:10)
[2025-01-16] MEDS: 0.9% Normal Saline 1,000 ML IV.SOLN. 1000 ML OPERA.SITE (09:11)
[2025-01-16] MEDS: 0.9% Saline Lock 10 ML Syringe IV ×4 (09:12→22:57)
--- NOTE | 2025-01-16 11:24 | CASEMGMT ---
Pt's [employer] through [employer] calls this RN CM asking for an update in pt status. Update provided to the CM at this time and denies further questions or concerns.
--- NOTE | 2025-01-16 12:20 | PN.RENAL_ITS ---
Subjective Subjective patient more alert today. Objective Data Objective Data Vital Signs: Vital Signs Temp Pulse Resp BP Pulse Ox O2 Del Method O2 Flow Rate 97.3 F L 99 24 H 144/73 H 100 Nasal Cannula 2 01/16/25 11:45 01/16/25 11:45 01/16/25 11:45 01/16/25 11:45 01/16/25 11:45 01/16/25 11:45 01/16/25 11:45 FiO2 30 01/16/25 04:00 Oxygen Flow Rate (L/min) 2 Oxygen Delivery Method Nasal Cannula Weight: 82 kg Body Mass Index (BMI) 25.9 Intake & Output: Intake and Output for Last 24 Hours 01/14/25 01/15/25 01/16/25 23:59 23:59 23:59 Intake Total 2026.79 / 2026.79 275.25 / 275.25 Output Total 460 / 535 620 / 620 Balance 1566.79 / 1491.79 -344.75 / -344.75 Lab / Micro Data 01/16/25 05:00 01/16/25 05:00 Labs: Laboratory Results - last 24 hr 01/15/25 17:52: POC Glucose 127 H 01/15/25 21:42: POC Glucose 142 H 01/16/25 00:00: POC Glucose 155 H 01/16/25 05:00: WBC 14.2 H, RBC 3.15 L, Hgb 9.0 L, Hct 27.0 L, MCV 85.7, MCH 28.6, MCHC 33.3, RDW Std Deviation 47.6 H, RDW Coeff of Candace 15.4 H, Plt Count 199, MPV 11.2, Immature Gran % (Auto) 0.800, Neut % (Auto) 80.8 H, Lymph % (Auto) 7.3 L, Orange % (Auto) 9.2, Eos % (Auto) 1.5, Baso % (Auto) 0.4, Absolute Neuts (auto) 11.5 H, Absolute Lymphs (auto) 1.03, Nucleated RBC % 0, Sodium 140, Potassium 3.8, Chloride 104, Carbon Dioxide 12.8 L, Anion Gap 23 H, BUN 76 H, C reatinine 7.47 H*, Estim Creat Clear Calc 12.22 L, Est GFR (MDRD) Non-Af 8 L, BUN/Creatinine Ratio 10.2, Glucose 141 H, Calcium 9.2, Phosphorus 5.9 H, Magnesium 1.7 01/16/25 05:15: POC Glucose 138 H 01/16/25 11:38: POC Glucose 101 Micro: Microbiology 01/06/25 16:28 Blood Culture (Wb) - Anticubital Left Blood Culture - Final No growth in 5 days. 01/06/25 16:41 Blood Culture (Wb) - Right Hand Blood Culture - Final No growth in 5 days. 01/07/25 Unknown Sputum, Induced/Lukens Gram Stain - Final 01/07/25 Unknown Sputum, Induced/Lukens Respiratory Culture - Final Presumptive C albicans 01/07/25 18:45 Urine Catheter - Brady Legionella Antigen - Final 01/07/25 18:45 Urine Catheter - Brady Streptococcus pneumoniae Antigen (M - Final 01/07/25 16:30 Nasal Secretion MRSA (PCR) - Final 01/07/25 09:32 Mucosa - Nasopharyngeal Respiratory Panel (PCR) - Final 01/06/25 22:15 Nasal Secretion MRSA (PCR) - Final Rhythm Strip Rhythm Strip: Sinus Tach Rate: 105 Physical Exam Narrative alert and oriented, no acute distress S1, S2, RRR Breath sounds clear anteriorly. No rales or rhonchi Abdomen soft, nondistended, positive bowel sounds No edema, left BKA, no edema to thighs Nontunneled right IJ hemodialysis catheter accessed for hemodialysis. Dressing clean, dry and intact Assessment & Plan Assessment/Plan (1) DIYA (acute kidney injury): (2) Altered mental status: (3) Acute hypoxic respiratory failure: PLAN: Plan This is a 49-year-old male with past medical history significant for diabetes mellitus type 1, hypothyroidism, alcohol abuse presented to the ER yesterday with altered mental status changes, high glucose, admitted for DKA with severe high anion gap metabolic acidosis, started on insulin drip, received multiple liters of IV fluids. - Initially anuric DIYA likely secondary to ATN, hypotension, DKA. Patient has normal baseline creatinine. Renal ultrasound without any hydronephrosis. Massive nephrotic range proteinuria, presumably this is related to diabetes (A1C ranging 10-12% April 2023 to present). He had serologies done before which were negative. initially creatinine and urine output was improving, creatinine then started to trend upward/ Urine output dropping off. On 01/11 serum creatinine 6.15. HD initiated 01/11 Scr up to 7.47. HD today. Temporary HD catheter has been running sluggish with last few dialysis sessions. No noted renal recovery at this time therefore consult surgery for tunneled HD catheter and patient will need outpatient hemodialysis arrangements, Dx: DIYA - Acute hypoxic respiratory failure secondary to pneumonia; patient completed antimicrobials. blood cx from 01/06 no growth. Repeat blood cx 01/15 pending. Sputum cx presume C albicans. Patient has been afebrile, WBC trending down today. Assessment and plan reviewed with Dr. Lopez.
[2025-01-16] MEDS: Cefepime HCl 0.5 GM in 0.9% Normal Saline (50mL Bag) 50 ML IV (13:05)
[2025-01-16] MEDS: CHLORHEXIDINE GLUC 2% CLOTH 1 EACH TOWELETTE TOPICAL (13:07)
[2025-01-16] MEDS: Chlorhexidine 15 ML PO (13:07)
--- NOTE | 2025-01-16 13:39 | CON.PCM.SX_ITS ---
Assessment & Plan Assessment/Plan (1) DIYA (acute kidney injury): PLAN: I have been consulted in conjunction with Dr. Haro. She will independently evaluate this patient. Patient is a 49 y/o M with a history of acute renal injury along with acute respiratory failure, which has resolved. Patient currently is on dialysis via right neck temporary dialysis catheter. Patient will need longer term dialysis treatment as his creatinine level continues to increase. Nephrology has recommended a tunneled dialysis catheter placement. Dr. Haro will plan to perform a right possible left tunneled dialysis catheter placement on 01/18 at approximately 8:30. Procedure details, risks and benefits have been explained. Patient verbally understands and agrees with the proposed procedure. Thank you for allowing us to participate in this patient's care. HPI Consult Data Date of Consult: 01/16/25 HPI Narrative Reason for Consultation: In need of tunneled dialysis catheter placement HPI Narrative: TORI CANTOR, is a 49 M who presented on 01/06/25 with altered mental status, DKA with severe metabolic acidosis, acute hypoxia, acute metabolic encephalopathy, DIYA. Patient has a history of uncontrolled type 1 diabetes. He uses an insulin pump. He states he has not had to be on dialysis before this admission. He has a left lower below the knee amputation. He currently has a temporary right lateral neck catheter. Creatinine today is 7.47. [facility] Medical History 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 Tobacco use disorder Polyneuropathy due to type 1 diabetes mellitus Wound discharge MRSA infection Marijuana use Open wound Thyroid disease Insulin dependent diabetes mellitus Arthritis Uses wheelchair Bladder disease Injury of back Difficulty chewing Dietary restriction Amputation of left lower extremity below knee Type 1 diabetes Current use of insulin Back pain due to injury Stroke Restless legs History of stress test Gastroparesis Vision loss of right eye Vision loss of left eye Hearing loss, left Hearing loss, right Anemia Substance abuse Alcohol abuse Anxiety Depression Hypothyroidism Diabetes Chronic pain Rheumatoid arthritis Osteoporosis Pancreatitis GERD (gastroesophageal reflux disease) Hepatitis Smoker Asthma Chest pain Hypertension Migraines Seizures Charcot foot due to diabetes mellitus Charcot ankle Neuropathy Cellulitis (~09/15/21) Diabetes mellitus Home Medications ?Medication ?Instructions ?Recorded ?Last Taken ?Type gabapentin 300 mg capsule 300 mg PO 4X/DAY nerve pain 08/13/20 06/18/22 History pantoprazole 40 mg tablet,delayed 40 mg PO DAILY gerd 08/13/20 06/18/22 History release sertraline 50 mg tablet (Zoloft) 50 mg PO DAILY depres tania 03/05/22 06/18/22 History amitriptyline 25 mg tablet 25 mg PO QHS sleep 06/17/22 06/18/22 History insulin glargine 100 unit/mL (3 35 unit (0.35 mL) subc ut QHS #31.5 09/23/23 Unknown Rx mL) subcutaneous pen (Lantus mL Solostar U-100 Insulin) lisinopril 40 mg tablet 40 mg PO QDAY BP 11/11/23 Un known History amlodipine 10 mg tablet 10 mg PO DAILY #90 tabs 02/18 08/12 Unknown Rx atorvastatin 20 mg tablet 20 mg PO QHS #90 tabs Unknown Rx blood sugar diagnostic (OneTouch #100 ea 05/02/24 Unkn own Rx Verio test strips) blood-glucose meter (OneTouch #1 ea 05/02/24 Unknown R x Verio Reflect Meter) blood-glucose sensor (Drive.SGStyle #2 ea 08/01/24 Unknown Rx Maikel 2 Plus Sensor device) levothyroxine 25 mcg tablet 25 mcg PO DAILY thyroid #9 0 tabs 08/02/24 Unknown Rx cholecalciferol (vitamin D3) 125 125 mcg PO QDAY #90 c aps 08/31/24 Unknown Rx mcg (5,000 unit) capsule insulin lispro 100 unit/mL 60 unit (0.6 mL) continuous 09/27/24 Unknown Rx subcutaneous solution (Humalog subcutaneous infusion . continuous U-100 Insulin) #54 mL insulin pump cart,auto,BT,G6/L #10 ea 11/21/24 Unknown Rx (Omnipod 5 (G6/Maikel 2 Plus) subcutaneous cartridge) insulin pump cartridge,automated 01/08/25 Unknown His tory dose,BT with controller subcutaneous Allergy/AdvReac Type Severity Reaction Status Date / Time No Known Allergies Allergy Verified 08/01/24 14: Family History Other Cancer Diabetes Heart disease Surgical History History of bilateral cataract extraction H/O tooth extraction History of left below knee amputation Social History Smoking Status: Current every day smoker tobacco type: cigarettes ROS Constitutional Constitutional: Reports fatigue and poor appetite Eyes Eyes: Reports systems reviewed and no addt'l complaints, except as documented ENT HEENT: Reports dry mouth Cardiovascular Cardiovascular: Reports systems reviewed and no addt'l complaints, except as documented Respiratory/Chest Respiratory/Chest: Reports cough and productive cough Gastrointestinal Gastrointestinal: Reports systems reviewed and no addt'l complaints, except as documented Genitourinary Genitourinary: Reports systems reviewed and no addt'l complaints, except as documented Musculoskeletal Musculoskeletal: Reports systems reviewed and no addt'l complaints, except as documented Integumentary Integumentary: Reports systems reviewed and no addt'l complaints, except as documented Neurologic Neurologic: Reports systems reviewed and no addt'l complaints, except as documented Psychiatric Psychiatric: Reports systems reviewed and no addt'l complaints, except as documented Endocrine Endocrinology: Reports systems reviewed and no addt'l complaints, except as documented Hematologic/Lymphatic Hematologic/Lymphatic: Reports systems reviewed and no addt'l complaints, except as documented Allergic/Immunologic Allergic/Immunologic: Reports systems reviewed and no addt'l complaints, except as documented Physical Exam Const alert and no apparent distress Orientation / Consciousness: awake HEENT normocephalic and head/scalp atraumatic Eyes PERRL Neck Neck Narrative: Right neck- temporary dialysis catheter noted Lymph Lymphatic: no lymphadenopathy noted Chest inspection of chest normal Resp normal respiratory effort Auscultation: rhonchi and diminished lung sounds Cardio regular rate and regular rhythm GI normal to inspection, nondistended, normoactive bowel sounds no CVA tenderness Back/Spine no CVA tenderness Extremity Extremity Narrative: Left lower extremity- left below the knee amputation Skin no rashes or lesions noted Neuro oriented x3 Sensorium / Orientation: confused Psych mental status grossly normal, thought process normal and cooperative Lab / Micro Data 01/16/25 05:00 01/16/25 05:00 Labs: Laboratory Results - last 24 hr 01/15/25 17:52: POC Glucose 127 H 01/15/25 21:42: POC Glucose 142 H 01/16/25 00:00: POC Glucose 155 H 01/16/25 05:00: WBC 14.2 H, RBC 3.15 L, Hgb 9.0 L, Hct 27.0 L, MCV 85.7, MCH 28.6, MCHC 33.3, RDW Std Deviation 47.6 H, RDW Coeff of Candace 15.4 H, Plt Count 199, MPV 11.2, Immature Gran % (Auto) 0.800, Neut % (Auto) 80.8 H, Lymph % (Auto) 7.3 L, Sully % (Auto) 9.2, Eos % (Auto) 1.5, Baso % (Auto) 0.4, Absolute Neuts (auto) 11.5 H, Absolute Lymphs (auto) 1.03, Nucleated RBC % 0, Sodium 140, Potassium 3.8, Chloride 104, Carbon Dioxide 12.8 L, Anion Gap 23 H, BUN 76 H, C reatinine 7.47 H*, Estim Creat Clear Calc 12.22 L, Est GFR (MDRD) Non-Af 8 L, BUN/Creatinine Ratio 10.2, Glucose 141 H, Calcium 9.2, Phosphorus 5.9 H, Magnesium 1.7 01/16/25 05:15: POC Glucose 138 H 01/16/25 11:38: POC Glucose 101 Rhythm Strip Rhythm Strip: Sinus Tach Rate: 105 Charges/Coding Visit Charges Inpatient E&M: 46588 Init Hosp L2
--- NOTE | 2025-01-16 14:16 | CASEMGMT ---
Noelle with nephrology reports that the pt will require OP HD set up. Dx: DIYA. RN GRICELDA to the pt room at this time. Pt is getting prepped for transfer to PCU. At this time, the DC plan is TBD. Pt states that he has not reviewed the list of SNF's yet. Pt also states that he has a pvt duty aide (Shiv) who is with the pt q M-F and provides the pt with transportation. GRICELDA and BASILIO to follow for disposition planning. Pt noted to have a [place] address. At this time, the pt states that he prefers to get established with [facility] in [place]. Pt prefers a MWF schedule due to the aide/transportation availability. Pt does not have a preference on the time of day. [facility] at [facility]. Also noted that pt is scheduled for tunneled cath placement on . Report given to PHYSICAL OPTICS TEACHER CM. GRICELDA and BASILIO to follow.
[2025-01-16] MEDS: Fluconazole IVPB 400 MG/200 ML BAG 100 MG IV (14:24)
--- NOTE | 2025-01-16 15:06 | CASEMGMT ---
SW met with patient. Introduced self and role at [facility]. SW provided patient with a new list of SNF's as the previous one has been misplaced. SW asked patient to review the list and choose 3-4 preferences. Patient is not sure he wants to go to a SNF. Patient said he has a niranjan with him all of the time. SW told patient we can see how he does with therapy and go from there. Mariza BETHEA
[2025-01-16] MEDS: Insulin Glargine-YFGN 100 UNIT/ML Pen 10 UNIT SC (22:55)
[2025-01-17] VITALS (12 sets, daily range): BP systolic 154–177; BP diastolic 86–105; PULSE 75–98; RESP 18–20; TEMP 36.3–37; O2SAT 95–99; BMI 25.0
[2025-01-17] MEDS: Heparin Injection (Vial) 5,000 UNIT/ML VIAL 5000 UNIT SC ×2 (05:19→15:43)
[2025-01-17] MEDS: 0.9% Saline Lock 10 ML Syringe IV ×6 (05:20→21:21)
[2025-01-17 05:57] LABS: Hematocrit 23.9 % (40-54); Hemoglobin 8.2 g/dL (13.0-16.5); Immature Granulocytes Count 0.060 X10^3/uL (0.0-0.0); Mean Corp Hgb Conc 34.3 g/dL (32-36); Mean Corpuscular Volume 84.5 fL (80-94); Mean Platelet Vol. 11.6 fl (6.2-12.0); NRBC Flagged by Analyzer 0 % (0-5); Platelet Count 208 K/mm3 (150-450); RBC Distribution Width CV 15.3 % (11.6-14.6); RBC Distribution Width SD 46.7 fl (35.1-43.9); Red Blood Count 2.83 M/mm3 (4.6-6.2); White Blood Count 9.6 K/mm3 (4.4-11.0)
[2025-01-17 06:55] LABS: Anion Gap 23 (5-15); BUN 56 mg/dL (4-19); BUN/Creat Ratio 10.0 RATIO (10-20); Calcium,Total 9.1 mg/dL (7.6-11.0); Carbon Dioxide 14.3 mmol/L (21.0-32.0); Chloride 105 mmol/L (98-108); Estimated Creatinine Clearance 16.32 ml/min (50-250); Glucose 148 mg/dL (70-99); Magnesium 1.8 mg/dL (1.5-2.2); Potassium 3.5 mmol/L (3.3-5.1)
--- NOTE | 2025-01-17 07:13 | PN.SURG_ITS ---
Subjective Subjective Patient evaluated while receiving chest therapy. He denies any new concerns or complaints. He is agreeable to tunneled dialysis catheter placement tomorrow. Objective Data Objective Data Vital Signs: Vital Signs Temp Pulse Resp BP Pulse Ox O2 Del Method O2 Flow Rate 97.4 F L 75 18 165/88 H 95 Nasal Cannula 2 01/17/25 03:45 01/17/25 06:55 01/17/25 06:55 01/17/25 03:45 01/17/25 06:55 01/17/25 06:55 01/17/25 06:55 FiO2 30 01/16/25 04:00 Oxygen Flow Rate (L/min) 2 Oxygen Delivery Method Nasal Cannula Weight: 175 lb 0.752 oz Body Mass Index (BMI) 25.0 Intake & Output: Intake and Output for Last 24 Hours 01/15/25 01/16/25 01/17/25 23:59 23:59 23:59 Intake Total 275.25 / 275.25 255 / 255 Output Total 620 / 620 2350 / 2575 350 / 350 Balance -344.75 / -344.75 -2095 / -2320 -350 / -350 Lab / Micro Data 01/17/25 05:21 01/17/25 05:21 Labs: Laboratory Results - last 24 hr 01/13/25 10:24: POC Glucose 44 L* 01/13/25 10:35: POC Glucose 40 L* 01/13/25 18:02: POC Glucose 40 L* 01/13/25 18:05: POC Glucose 38 L* 01/14/25 05:26: POC Glucose 92 01/16/25 11:38: POC Glucose 101 01/16/25 17:39: POC Glucose 127 H 01/16/25 22:54: POC Glucose 138 H 01/17/25 05:12: POC Glucose 135 H 01/17/25 05:21: WBC 9.6, RBC 2.83 L, Hgb 8.2 L, Hct 23.9 L, MCV 84.5, MCH 29.0, MCHC 34.3, RDW Std Deviation 46.7 H, RDW Coeff of Candace 15.3 H, Plt Count 208, MPV 11.6, Immature Gran % (Auto) 0.600, Neut % (Auto) 71.8 H, Lymph % (Auto) 11.0 L, [place] % (Auto) 13.4 H, Eos % (Auto) 2.8, Baso % (Auto) 0.4, Absolute Neuts (auto) 6.9, Absolute Lymphs (auto) 1.05, Nucleated RBC % 0, Sodium 142, Potassium 3.5, Chloride 105, Carbon Dioxide 14.3 L, Anion Gap 23 H, BUN 56 H, Creatinine 5.59 H , Estim Creat Clear Calc 16.32 L, Est GFR (MDRD) Non-Af 12 L, BUN/Creatinine Ratio 10.0, Glucose 148 H, Calcium 9.1, Phosphorus 4.2, Magnesium 1.8 Micro: Microbiology 01/06/25 16:28 Blood Culture (Wb) - Anticubital Left Blood Culture - Final No growth in 5 days. 01/06/25 16:41 Blood Culture (Wb) - Right Hand Blood Culture - Final No growth in 5 days. 01/07/25 Unknown Sputum, Induced/Lukens Gram Stain - Final 01/07/25 Unknown Sputum, Induced/Lukens Respiratory Culture - Final Presumptive C albicans 01/07/25 18:45 Urine Catheter - Brady Legionella Antigen - Final 01/07/25 18:45 Urine Catheter - Brady Streptococcus pneumoniae Antigen (M - Final 01/07/25 16:30 Nasal Secretion MRSA (PCR) - Final 01/07/25 09:32 Mucosa - Nasopharyngeal Respiratory Panel (PCR) - Final 01/06/25 22:15 Nasal Secretion MRSA (PCR) - Final Rhythm Strip Rhythm Strip: Sinus Tach Rate: 105 Assessment & Plan Assessment/Plan (1) DIYA (acute kidney injury): PLAN: I am following this patient in conjunction with Dr. Haro. She will independently evaluate this patient. Labs reviewed Plan to remove temporary dialysis catheter in the right lateral neck today. Discussed with dialysis team yesterday Dr. Haro will plan to perform a right possible left chest tunneled dialysis catheter placement tomorrow Patient NPO after midnight Heparin on hold starting this evening We will continue to monitor this patient Charges/Coding Visit Charges Inpatient E&M: 33781 [facility] Hosp L1
--- NOTE | 2025-01-17 08:12 | NURSING ---
Right IJ temporary dialysis catheter removed following physician order, per hospital policy. Catheter intact post removal. Pt tolerated procedure well without incident.
[2025-01-17] MEDS: Cefepime HCl 0.5 GM in 0.9% Normal Saline (50mL Bag) 50 ML IV (09:49)
--- NOTE | 2025-01-17 09:57 | CASEMGMT ---
Fozia from [facility] in [place] calls this RN CM stating that they can accept the pt but do not have any opening for a MWF currently. Fozia states that they can accept for a TTS schedule with a 0730 arrival time. METAL CEILING HANGER CM updated.
--- NOTE | 2025-01-17 10:10 | CASEMGMT ---
Patient is still not completely with it and understanding current situation. SW called patient's son Koko and explained that patient is going to need to go to a [facility] short term for rehab. BASILIO asked Koko if he would be able to assist patient in choosing 3-4 preferences then SW will take care of contacting facilities. Koko said he was planning on coming in later today after work. SW let him know the list is in the room. Mariza Wahl MSW NEEMA
--- NOTE | 2025-01-17 10:49 | PN.RENAL_ITS ---
Subjective Subjective Sitting up in bed, more alert again today. No overnight events. Objective Data Objective Data Vital Signs: Vital Signs Temp Pulse Resp BP Pulse Ox O2 Del Method O2 Flow Rate 98.6 F 89 18 164/105 H 95 Room Air 2 01/17/25 09:45 01/17/25 09:45 01/17/25 09:45 01/17/25 09:45 01/17/25 09:45 01/17/25 09:45 01/17/25 06:55 FiO2 30 01/16/25 04:00 Oxygen Flow Rate (L/min) 2 Oxygen Delivery Method Room Air Weight: 79.4 kg Body Mass Index (BMI) 25.0 Intake & Output: Intake and Output for Last 24 Hours 01/15/25 01/16/25 01/17/25 23:59 23:59 23:59 Intake Total 275.25 / 275.25 255 / 255 Output Total 620 / 620 2350 / 2575 350 / 350 Balance -344.75 / -344.75 -2095 / -2320 -350 / -350 Lab / Micro Data 01/17/25 05:21 01/17/25 05:21 Labs: Laboratory Results - last 24 hr 01/13/25 10:24: POC Glucose 44 L* 01/13/25 10:35: POC Glucose 40 L* 01/13/25 18:02: POC Glucose 40 L* 01/13/25 18:05: POC Glucose 38 L* 01/14/25 05:26: POC Glucose 92 01/16/25 11:38: POC Glucose 101 01/16/25 17:39: POC Glucose 127 H 01/16/25 22:54: POC Glucose 138 H 01/17/25 05:12: POC Glucose 135 H 01/17/25 05:21: WBC 9.6, RBC 2.83 L, Hgb 8.2 L, Hct 23.9 L, MCV 84.5, MCH 29.0, MCHC 34.3, RDW Std Deviation 46.7 H, RDW Coeff of Candace 15.3 H, Plt Count 208, MPV 11.6, Immature Gran % (Auto) 0.600, Neut % (Auto) 71.8 H, Lymph % (Auto) 11.0 L, [place] % (Auto) 13.4 H, Eos % (Auto) 2.8, Baso % (Auto) 0.4, Absolute Neuts (auto) 6.9, Absolute Lymphs (auto) 1.05, Nucleated RBC % 0, Sodium 142, Potassium 3.5, Chloride 105, Carbon Dioxide 14.3 L, Anion Gap 23 H, BUN 56 H, Creatinine 5.59 H , Estim Creat Clear Calc 16.32 L, Est GFR (MDRD) Non-Af 12 L, BUN/Creatinine Ratio 10.0, Glucose 148 H, Calcium 9.1, Phosphorus 4.2, Magnesium 1.8 Micro: Microbiology 01/06/25 16:28 Blood Culture (Wb) - Anticubital Left Blood Culture - Final No growth in 5 days. 01/06/25 16:41 Blood Culture (Wb) - Right Hand Blood Culture - Final No growth in 5 days. 01/07/25 Unknown Sputum, Induced/Lukens Gram Stain - Final 01/07/25 Unknown Sputum, Induced/Lukens Respiratory Culture - Final Presumptive C albicans 01/07/25 18:45 Urine Catheter - Brady Legionella Antigen - Final 01/07/25 18:45 Urine Catheter - Brady Streptococcus pneumoniae Antigen (M - Final 01/07/25 16:30 Nasal Secretion MRSA (PCR) - Final 01/07/25 09:32 Mucosa - Nasopharyngeal Respiratory Panel (PCR) - Final 01/06/25 22:15 Nasal Secretion MRSA (PCR) - Final Rhythm Strip Rhythm Strip: Sinus Tach Rate: 105 Physical Exam Narrative alert and oriented, no acute distress S1, S2, RRR Breath sounds clear anteriorly Abdomen soft, nondistended, positive bowel sounds No edema, left BKA, no edema to thighs Assessment & Plan Assessment/Plan (1) DIYA (acute kidney injury): (2) Altered mental status: (3) Acute hypoxic respiratory failure: PLAN: Plan This is a 49-year-old male with past medical history significant for diabetes mellitus type 1, hypothyroidism, alcohol abuse presented to the ER yesterday with altered mental status changes, high glucose, admitted for DKA with severe high anion gap metabolic acidosis, started on insulin drip, received multiple liters of IV fluids. - Initially anuric DIYA likely secondary to ATN, hypotension, DKA. Patient has normal baseline creatinine. Renal ultrasound without any hydronephrosis. Massive nephrotic range proteinuria, presumably this is related to diabetes (A1C ranging 10-12% April 2023 to present). He had serologies done before which were negative. initially creatinine and urine output was improving, creatinine then started to trend upward/ Urine output dropping off. On 01/11 serum creatinine 6.15. HD initiated 01/11 Scr up to 7.47 01/16, patient had dialysis yesterday. No acute indication for BENCH HAND MACHINE today. Temporary HD catheter had been sluggish with last few HD sessions, temp line pulled. Urine output 350ml yesterday. No noted renal recovery at this time. Appreciate surgery consult for placement of tunneled HD catheter, tentatively tomorrow. Outpatient hemodialysis arrangements, Dx: DIYA, tentative outpatient dialysis schedule TTS at [facility]. Hemodialysis orders placed for tomorrow - Acute hypoxic respiratory failure secondary to pneumonia; patient completed antimicrobials Assessment and plan reviewed with Dr. Lopez.
--- NOTE | 2025-01-17 11:30 | PN.HOSP_ITS ---
Reason for Visit Reason for Visit: Diagnoses Type 1 diabetes mellitus with ketoacidosis with coma (01/06/25) Type 2 diabetes mellitus with ketoacidosis without coma (01/06/25) Acute respiratory failure with hypoxia (01/06/25) Acute kidney failure, unspecified (01/06/25) Altered mental status, unspecified (01/06/25) Objective Data Objective Data Vital Signs: Vital Signs Temp Pulse Resp BP Pulse Ox O2 Del Method O2 Flow Rate 98.6 F 89 18 164/105 H 95 Room Air 2 01/17/25 09:45 01/17/25 09:45 01/17/25 09:45 01/17/25 09:45 01/17/25 09:45 01/17/25 09:45 01/17/25 06:55 FiO2 30 01/16/25 04:00 Oxygen Flow Rate (L/min) 2 Oxygen Delivery Method Room Air Weight: 175 lb 0.752 oz Body Mass Index (BMI) 25.0 Intake & Output: Intake and Output for Last 24 Hours 01/15/25 01/16/25 01/17/25 23:59 23:59 23:59 Intake Total 275.25 / 275.25 255 / 255 55 / 55 Output Total 620 / 620 2350 / 2575 350 / 350 Balance -344.75 / -344.75 -2095 / -2320 -295 / -295 Lab / Micro Data 01/17/25 05:21 01/17/25 05:21 Labs: Laboratory Results - last 24 hr 01/13/25 10:24: POC Glucose 44 L* 01/13/25 10:35: POC Glucose 40 L* 01/13/25 18:02: POC Glucose 40 L* 01/13/25 18:05: POC Glucose 38 L* 01/14/25 05:26: POC Glucose 92 01/16/25 11:38: POC Glucose 101 01/16/25 17:39: POC Glucose 127 H 01/16/25 22:54: POC Glucose 138 H 01/17/25 05:12: POC Glucose 135 H 01/17/25 05:21: WBC 9.6, RBC 2.83 L, Hgb 8.2 L, Hct 23.9 L, MCV 84.5, MCH 29.0, MCHC 34.3, RDW Std Deviation 46.7 H, RDW Coeff of Candace 15.3 H, Plt Count 208, MPV 11.6, Immature Gran % (Auto) 0.600, Neut % (Auto) 71.8 H, Lymph % (Auto) 11.0 L, [place] % (Auto) 13.4 H, Eos % (Auto) 2.8, Baso % (Auto) 0.4, Absolute Neuts (auto) 6.9, Absolute Lymphs (auto) 1.05, Nucleated RBC % 0, Sodium 142, Potassium 3.5, Chloride 105, Carbon Dioxide 14.3 L, Anion Gap 23 H, BUN 56 H, Creatinine 5.59 H , Estim Creat Clear Calc 16.32 L, Est GFR (MDRD) Non-Af 12 L, BUN/Creatinine Ratio 10.0, Glucose 148 H, Calcium 9.1, Phosphorus 4.2, Magnesium 1.8 Micro: Microbiology 01/06/25 16:28 Blood Culture (Wb) - Anticubital Left Blood Culture - Final No growth in 5 days. 01/06/25 16:41 Blood Culture (Wb) - Right Hand Blood Culture - Final No growth in 5 days. 01/07/25 Unknown Sputum, Induced/Lukens Gram Stain - Final 01/07/25 Unknown Sputum, Induced/Lukens Respiratory Culture - Final Presumptive C albicans 01/07/25 18:45 Urine Catheter - Brady Legionella Antigen - Final 01/07/25 18:45 Urine Catheter - Brady Streptococcus pneumoniae Antigen (M - Final 01/07/25 16:30 Nasal Secretion MRSA (PCR) - Final 01/07/25 09:32 Mucosa - Nasopharyngeal Respiratory Panel (PCR) - Final 01/06/25 22:15 Nasal Secretion MRSA (PCR) - Final Rhythm Strip Rhythm Strip: Sinus Tach Rate: 105 Physical Exam Narrative Seen and examined. hairspring vibrator reviewed. Patient having sinus rhythm at 95 beats per hour. BP 166/85 Patient is quite in talking care for her aunt. Ready to be hooked to the dialysis The patient was extubated on 01/13/2025. Patient had right IJ temporary dialysis catheter inserted and dialysis initiated 01/11. No good flow on the catheter therefore pulled out. Plan for tunnel dialysis catheter tomorrow a.m. Physical exam: General: Awake, alert, oriented x 3 HEENT: Atraumatic, Normocephalic. Seated Oral: Oral mucosa dry. N.p.o. Neck: Supple, No JVD, Negative Carotid Bruits. Right IJ dialysis catheter Chest wall/Lungs: Air entry diminished in bilateral lung bases. Mild coarse transmitted sounds Cardiovascular: Sinus rhythm, soft heart sound, no M/G/R Abdomen: Bowel Sounds sluggish, Soft, Non Tender, Non-Distended : Oliguria Brady catheter, oliguria no renal angle tenderness. No suprapubic tenderness. Extremities: No edema, Capillary Refill Less than 3 Seconds. Left BKA. Extremities pale Skin: Multiple scabs in lower extremities Musculoskeletal: No Tenderness to Palpation of Joints or Extremities Neurological: No obvious lateralizing neurological sign, detailed neuroexam not done Psych/Mental Status: Quite. Behavior more organized Assessment & Plan Assessment/Plan (1) Acute hypoxic respiratory failure: (2) DKA (diabetic ketoacidoses): QUALIFIERS: Diabetes mellitus type: type 1 Diabetes mellitus complication detail: with coma Qualified Code(s): E10.11 - Type 1 diabetes mellitus with ketoacidosis with coma PLAN: Plan Patient is a 49-year-old male who presented to [facility] ED on 01/06/2025 with altered mental status and hyperglycemia. 1. DKA with persistent anion gap metabolic acidosis, poorly controlled type 1 diabetes mellitus with diabetic neuropathy ? Follows with Dr. Naik in the office and has had poor compliance with insulin pump noted. A1c 10.7% on admit, similar to last office A1c. Labs on admit consistent with DKA. Initial ABG with pH 6.93, pCO2 15, blood glucose 788 and bicarb on BMP was less than 5. Had good improvement on ABG initially with treatment with insulin drip. 01/12: Beta-hydroxybutyrate 0.3 in normal range. AG 17, bicarb 19, K2.7. In the interim, insulin drip was changed to intermittent subcu glargine and lispro insulin 01/14: Electrolytes potassium, sodium and chloride normal. Bicarb low, anion gap 17. Magnesium 1.4. Phosphorus 3.4. 01/15:: hairspring vibrator shows still sinus tachycardia and PVCs. Electrolytes shows bicarb 12.6. Leukocytosis 16.1 K. Still n.p.o. undergoing evaluation by speech therapist. Transfer to PCU. 2. Acute hypoxic respiratory failure ? Bacteriologist Medical following. Had worsening oxygen requirements on admit and chest x-ray showed severe bilateral pulmonary infiltrates. Intubated on morning of 01/07. Per azure principal solution specialist, differential diagnosis includes pulmonary edema, aspiration event and ARDS. BNP elevated to 4000 but lower clinical suspicion for heart failure; echo with normal EF and no concerning findings. SBT completed on morning of 01/10 and unfortunately patient failed with concern for an aspiration event. Had bilious contents suctioned from ET tube and was suspected this may be due to gastroparesis from poorly controlled diabetes as above. Treating with Reglan as above. Continue to treat with IV cefepime and scheduled DuoNebs. Oxygen requirements remain low but patient with significant agitation with spontaneous awakening trials. Ventilator management and further recommendations per azure principal solution specialist. 01/12: Still intubated. Continue IV cefepime, scheduled DuoNeb. 01/13: Patient was extubated on 01/13. He is in delirium with hyperactive, inattention and delirium advised low-dose Precedex drip 01/14: On 4 L of oxygen 01/16 currently on 2 L of oxygen. 01/17: On 2 L of oxygen. BP 164/105. Heart rate 89/min. Oropharyngeal dysphagia and aspiration. Currently NPO. Discussed with the speech therapist. Plan for MBS tomorrow. 3. Acute metabolic encephalopathy ? Bacteriologist Medical following as above. Presumed multifactorial from DKA with severe metabolic acidosis as well as respiratory failure. Remains intubated and sedated at this time. Has nonpurposeful movements but not following commands. Monitor. 01/14: Delirious. On Precedex drip. 01/15: Patient follows simple command. Feels hungry. Delirium has resolved. Off Precedex drip 01/16: Patient is behaving more organized. 4. Severe DIYA ? Nephrology following. Likely secondary to ATN primarily due to hypotension in setting of DKA with volume depletion. Baseline creatinine around 0.9. Creatinine 2.5 on admission. Significantly worsened initially and patient was anuric. However, with IV albumin and high-dose diuretics patient began to have significant urine output on 01/08. Unfortunately, creatinine only improved slightly and then has since been steadily worsening with minimal urine output. Most recent creatinine 6.15 on 01/11. Transport Truck Driver made decision for dialysis. Bacteriologist Medical placed temporary HD line on 01/11 and plan is for dialysis to be initiated later this evening. Appreciate further nephrology recommendations. 01/12: Undergoing hemodialysis. 01/13: Still oliguric. On hemodialysis. 01/14: Dialysis as per wire tester recommendation 01/16: Plan for dialysis today 01/17: Right IJ dialysis catheter pulled out. Discussed with the surgeon and she said for tunnel cystoscopy tomorrow probably on left IJ. 5. Acute on chronic anemia and thrombocytopenia since admission, ? Hemoglobin 12.9 on admit, baseline appears to be around 13-14. Hemoglobin downtrending during hospitalization but this was thought to be secondary to hemodilution from severe volume overload. Had one hemoglobin read of 8.4 on morning of 01/09; however hemoglobin was up to 10 on afternoon of 01/09 and has remained stable. No dark or bloody bowel movements noted. Will continue IV PPI twice daily for now. Monitor daily CBC. Will hold off on GI consult at this time. 01/12: Patient platelet count steadily decreased from 250K in July 08 24-158 on 01/07/2025, trough 52 on 01/09. Since that had slight recovery 6. Hyponatremia, resolved ? Sodium 122 on admit, corrected sodium 133 in setting of severe hyperglycemia. Resolved with IV fluids on admission. 7. Acute on chronic debility with history of left BKA ? PT/OT/case management following. Appreciate therapy recommendations. 8. Hypertension: Blood pressure has been in the 150s sometimes goes high 170. Amlodipine 10 mg daily started. Hydralazine p.o. scheduled and IV as needed for SBP more than 160 mmHg ordered. MORGAN/ARB are contraindicated. Chronic medical conditions: ? Class II obesity: BMI 37 on admit. Complicates hospital course, care and prognosis. ? History of PAD, hypertension, hyperlipidemia: Holding home amlodipine, lisinopril and statin. ? GERD: Treating with IV PPI twice daily as above. ? Hypothyroidism: Continue home Synthroid. DVT prophylaxis: Heparin subcu CODE STATUS: Full code, unverified Expected disposition: TBD Charges/Coding Visit Charges Inpatient E&M: 06965 Subs Hosp L2
--- NOTE | 2025-01-17 14:46 | SP.MBSS_ITS ---
Modified Barium Swallow Patient Information Study Date: 01/17/25 Study Time: 12:45 Direct Billable Minutes: 120 Total Minutes procedure & reportin Diagnosis: Acute hypoxic respiratory failure J96.01 Referring Physician: Shen Reza Reason for Referral: Assess swallow function, assess risk for aspiration, and determine recommendations for least restrictive diet textures and compensatory strategies to improve safety of swallow. Medical History: Patient is a 49-year-old male who presented to [facility] ED on 01/06/2025 with altered mental status and hyperglycemia, admitted for management of DKA & acute hypoxic respiratory failure. Pt was intubated 01/07/25 am and was extubated 01/13/25 am. RN Emily reports that he failed the RN dysphagia screening w/ coughing/choking on a single sip of water. Pt was medicated earlier d/t agitation for receipt of dialysis per nursing. BSE recommended NPO. Pt's mentation has somewhat improved since BSE, and pt consumed serving of applesauce w/ GYMNASTIC TEACHER today at bedside. Pt continues coughing w/ trials of liquids. He was recommended for MBSS to consider him for diet advancement and further assess swallow function and aspiration risk. 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 Tobacco use disorder Polyneuropathy due to type 1 diabetes mellitus Wound discharge MRSA infection Marijuana use Open wound Thyroid disease Insulin dependent diabetes mellitus Arthritis Uses wheelchair Bladder disease Injury of back Difficulty chewing Dietary restriction Amputation of left lower extremity below knee Type 1 diabetes Current use of insulin Back pain due to injury Stroke Restless legs History of stress test Gastroparesis Vision loss of right eye Vision loss of left eye Hearing loss, left Hearing loss, right Anemia Substance abuse Alcohol abuse Anxiety Depression Hypothyroidism Diabetes Chronic pain Rheumatoid arthritis Osteoporosis Pancreatitis GERD (gastroesophageal reflux disease) Hepatitis Smoker Asthma Chest pain Hypertension Migraines Seizures Charcot foot due to diabetes mellitus Charcot ankle Neuropathy Cellulitis (~09/15/21) Diabetes mellitus Current Diet Ordered: NPO Dentition: Edentulous Mental Status: Impaired (Poor abilities to follow commands and attend to task) Respiratory Status: Oxygenating on Room Air Penetration-Aspiration Scale Penetration-Aspiration Scale: OBJECTIVE ASSESSMENT OF SWALLOW FUNCTION (QUANTITATIVE ? PER TRIAL): PENETRATION / ASPIRATION SCALE (NUR): 1 = does not enter airway 2 = enters airway/above vocal folds/ejected 3 = enters airway/above vocal folds/not ejected 4 = enters airway/contacts vocal folds/ejected 5 = enters airway/contacts vocal folds/not ejected 6 = enters airway/below vocal folds/ejected 7 = enters airway/below vocal folds/not ejected despite effort 8 = enters airway/below vocal folds/no effort VIDEOFLOROSCOPIC SCALE SCORE (NUR): Grade I = aspiration of material that has penetrated into the laryngeal vestibule, intact cough reflex Grade II = aspiration < 10 % of the bolus, intact cough reflex Grade III = aspiration of < 10 % of the bolus, reduced cough reflex or aspiration of > 10 % of the bolus, intact cough reflex Grade IV = aspiration of > 10 % of the bolus, reduced cough reflex Penetration-Aspiration Scale Score Thin Liquid via teaspoon: Result: 8= enters airway/below vocal folds/no effort Thin Liquid via teaspoon Trial 2: Result: 5= enters airways/contacts vocal folds/not ejected [place] Thick Liquid via teaspoon: Result: 5= enters airways/contacts vocal folds/not ejected [place] Thick Liquid via large single sip: cup: Result: 3= enters airways/above vocal folds/not ejected Comment: Post prandial aspiration that mostly cleared w/ delayed throat clear. Residues remained in the laryngeal vestibule. Pudding via teaspoon: Result: 1= does not enter airway 1/2 Cookie: Comment: No PAS score. GYMNASTIC TEACHER had to clear cookie from oral cavity due to impaired mastication. Honey Thick Liquid via teaspoon: Result: 1= does not enter airway Comment: Silent post prandial aspiration of residues of previous trials [place] Thick Liquid via teaspoon Trial 2: Result: 3= enters airways/above vocal folds/not ejected [place] Thick Liquid via teaspoon Trial 3: Result: 3= enters airways/above vocal folds/not ejected [place] [place] Thick Liquid via teaspoon Trial 4: Result: 5= enters airways/contacts vocal folds/not ejected Comment: Cued cough and re-swallow = mostly effective; however, aspiration of residues in laryngeal vestibule as he coughed which appeared to eject w/ cough. Oral Phase Labial Seal: Escape beyond interlabial space; no extension beyond alen border Tongue Control During Bolus Hold: Posterior escape of greater than half of bolus Bolus Preparation/Mastication: Minimal chewing/mashing with majority of bolus unchewed Bolus Transport/Lingual Motion: Repetitive/disorganized tongue motion Oral Residue: Residue collection on oral structures Pharyngeal Phase Initiation of Pharyngeal Swallow: Bolus head in pyriforms Soft Palate Elevation: Trace column of contrast/air between soft palate and pharyngeal wall Laryngeal Elevation: Partial superior movement thyroid cart/partial apprx aryt- epig petiole Anterior Hyoid Excursion: Partial anterior movement Epiglottic Movement: Complete inversion Laryngeal Vestibule Closure at Height of Swallow: Incomplete; narrow column of air/contrast in laryngeal vestibule Pharyngeal Stripping Wave: Present - diminished Pharyngoesophageal Segment Opening: Parital distension and partial duration; parital obstruction of flow Tongue Base Retraction: Narrow column of contrast between tongue base & post. pharyngeal wall Pharyngeal Residue: Collection of residue within or on pharyngeal structures Diagnosis/Impression Diagnosis: Moderate-severe oropharyngeal dysphagia R13.12 Impression: The oral phase is primarily marked by... -Decreased bolus control. Pt speaking w/ barium boluses in his mouth, oral holding due to dislike of flavor, moving head [id number]/leaning forward to view NAILA unit. He demonstrated posterior loss of >1/2 of several boluses to the pharynx prior to swallow onset. -Disorganized tongue motion for A-P transport. -Inability to fully chew cookie. He chewed 1/2 cookie into two pieces, but then couldn't chew it any more so GYMNASTIC TEACHER cleared it from his oral cavity w/ a spoon and max cues to keep mouth open. -Moderate oral residues. The pharyngeal phase is primarily marked by... -Delayed swallow onset. -Decreased TB retraction and pharyngeal stripping wave w/ mild pharyngeal residues. -Decreased airway closure during the swallow w/ laryngeal penetration of thin and mildly thick liquids w/o complete ejection. Silent aspiration of thin liquids by tsp. Post prandial aspiration of mildly thick liquids by tsp. Silent post prandial aspiration of pharyngeal residues after pudding trial. Cough and re-swallow was most effective in decreasing aspiration risk. Pt unable to follow commands to trial other strategies/postures to decrease aspiration risk. Recommendations Diet: Puree Textures and Moderately Thick Liquids Compensatory Strategies: Small Bites, Liquid by Teaspoon Only, Slow Rate, Alternate bites/solids and sips/liquids, Sitting upright and Remain sitting upright for 30 minutes after PO intake Supervision: Total Feed (BY STAFF ONLY) Recommend Repeat Modified Barium Swallow: Yes (2-4 weeks to re-assess swallow function and consider the patient for further diet advancement) Need for Skilled Speech Therapy Services: Yes Comment: -Train the patient in use of strategies to decrease risk for aspiration. -Ongoing assessment of diet tolerance of recommended textures. Repeat MBSS prior to diet advancement due to silent nature of aspiration. -Train the patient in oropharyngeal exercise program (as able, pt has trouble following commands) to improve bolus control, airway closure, TB retraction, and pharyngeal motility (lingual resistance, Shavonne, Lea, effortful). Education Completed: 1. Described result of evaluation. and 7. Pt requires further education on strategies & risks. Status Active ST Patient: Active Contact Information [facility] Speech Therapy:: Rebecca Benavides M.A. CCC-GYMNASTIC TEACHER? Speech-Language Pathologist?? [facility] [address] [place] [address]? [email or web address]?? [phone]
[2025-01-17] MEDS: Acetaminophen 650 MG/20 ML UDC GT (15:43)
[2025-01-17] MEDS: Fluconazole IVPB 200 MG/100 ML BAG 100 MG IV (15:47)
[2025-01-17] MEDS: Insulin Glargine-YFGN 100 UNIT/ML Pen 10 UNIT SC (21:23)
[2025-01-18] VITALS (26 sets, daily range): BP systolic 127–185; BP diastolic 65–100; PULSE 82–103; RESP 14–20; TEMP 36.6–37.1; O2SAT 94–100; BMI 24.5; BMI 24.6; BMI 24.0
--- NOTE | 2025-01-18 04:54 | EKG12_ITS ---
Test Reason : PRE-OP Blood Pressure : */* mmHG Vent. Rate : 87 BPM Atrial Rate : 87 BPM P-R Int : 132 ms QRS Dur : 88 ms QT Int : 386 ms P-R-T Axes : 49 -4 10 degrees QTcB Int : 464 ms Normal sinus rhythm Septal infarct (cited on or before 15-Sep-2021) Abnormal ECG When compared with ECG of 07-Jan-2025 16:18, T wave inversion no longer evident in Anterior leads Confirmed by ALIS GUY, CHADWICK ([id number]), editor city BILL MURRAY ([id number]) on 01/18/2025 1:53:13 PM Referred By: Confirmed By: CHADWICK SNELL MD
--- NOTE | 2025-01-18 05:33 | NURSING ---
Pt pulled SL rt wrist out, no bleeding. Pt tolerated well. IV cath discarded in sharps container.
[2025-01-18 06:13] LABS: Magnesium 1.8 mg/dL (1.5-2.2)
[2025-01-18] MEDS: 0.9% Saline Lock 10 ML Syringe IV ×6 (06:20→23:25)
[2025-01-18 06:26] LABS: AST(SGOT) 21 U/L (<=37); Alanine Aminotransfer ALT/SGPT 24 U/L (<=46); Albumin, Serum 3.2 g/dL (3.5-5.0); Alkaline Phosphatase 108 U/L (40-129); Anion Gap 22 (5-15); BUN 59 mg/dL (4-19); BUN/Creat Ratio 9.7 RATIO (10-20); Bilirubin, Direct 0.22 mg/dL (0.00-0.30); Calcium,Total 9.3 mg/dL (7.6-11.0); Carbon Dioxide 16.1 mmol/L (21.0-32.0); Chloride 106 mmol/L (98-108); Estimated Creatinine Clearance 14.96 ml/min (50-250); Globulin 2.5 g/dL (2.2-4.2); Glucose 143 mg/dL (70-99); Potassium 3.1 mmol/L (3.3-5.1)
[2025-01-18 06:27] LABS: Hepatitis B Surface Antigen Nonreactive (Nonreactive)
[2025-01-18 06:59] LABS: Prothrombin Time (Protime)PT. 15.6 SECONDS (11.7-14.9)
[2025-01-18 07:00] LABS: Partial Thromboplast Time 31.4 Seconds (24.1-36.2)
[2025-01-18 07:31] LABS: Hematocrit 22.8 % (40-54); Hemoglobin 7.6 g/dL (13.0-16.5); Immature Granulocytes Count 0.050 X10^3/uL (0.0-0.0); Mean Corp Hgb Conc 33.3 g/dL (32-36); Mean Corpuscular Volume 86.0 fL (80-94); Mean Platelet Vol. 11.3 fl (6.2-12.0); NRBC Flagged by Analyzer 0 % (0-5); Platelet Count 242 K/mm3 (150-450); RBC Distribution Width CV 15.4 % (11.6-14.6); RBC Distribution Width SD 48.0 fl (35.1-43.9); Red Blood Count 2.65 M/mm3 (4.6-6.2); White Blood Count 8.6 K/mm3 (4.4-11.0)
--- NOTE | 2025-01-18 08:40 | PCM.PRE.AN2 ---
ASA Classification* ASA Classification ASA Classification: 3 Assessment & Plan Anesthesia* Anesthesia Assessment Anesthesia Assessment: Discussed sedation and/or anesthesia options, risks, benefits, and alternatives with patient/parents/legal guardian/POA. Questions invited. The patient/parents/legal guardian/POA seems to understand and agrees to proceed with anesthesia plan. Reviewed the physical assessment, medical history, allergy history and patient home medications list prior to surgery/procedure/anesthetic and documented any changes. Performed airway and anesthesia risk assessments. Anesthesia Type Anesthesia Type: MAC History Source History Obtained from:: Patient and Chart Anesthesia Focused Assessment* Temperature: 98.8 F Pulse Rate: 85 Blood Pressure: 174/76 Respiratory Rate: 16 Pulse Ox: 98 Oxygen Delivery Method: Room Air Oxygen Flow Rate (L/min): 2 Fraction of Inspired Oxygen (FIO2): 30 Airway Assessment Mouth opens: >3 cm Mallampati Score: I Teeth Condition: Missing (Patient is edentulous) Neck Range of motion (ROM): Full ROM Labs Anesthesia Preop lab: CBC WBC 8.6 K/mm3 (4.4-11.0) 01/18/25 05:01/18/25 RBC 2.65 M/mm3 (4.6-6.2) L 01/18/25 05:01/18/25 Hgb 7.6 g/dL (13.0-16.5) L 01/18/25 05:01/18/25 Hct 22.8 % (40-54) L 01/18/25 05:01/18/25 Plt Count 242 K/mm3 (150-450) 01/18/25 05:01/18/25 CHEMISTRY Potassium 3.1 mmol/L (3.3-5.1) L 01/18/25 05:20 01/18/25 Sodium 144 mmol/L (133-145) 01/18/25 05:01/18/25 Magnesium 1.8 mg/dL (1.5-2.2) 01/18/25 05:20 01/18/25 Phosphorus 4.6 mg/dL (2.7-4.5) H 01/18/25 05:20 01/18/25 BUN 59 mg/dL (4-19) H 01/18/25 05:01/18/25 Creatinine 6.10 mg/dL (0.70-1.20) H 01/18/25 05:20 01/18/25 Glucose 143 mg/dL (70-99) H 01/18/25 05:20 01/18/25 POC Glucose 139 mg/dL (74-106) H 01/18/25 06:14 01/18/25 TSH 1.32 uIU/mL (0.358-3.74) 02/10/24 15:30 02/10/24 COAG PT 15.6 SECONDS (11.7-14.9) H 01/18/25 06:38 01/18/25 Pre-Assessment Diagnosis/Proposed Procedure Planned Operative Procedure(s): Right possible left tunneled dialysis catheter Anesthesia History Anesthesia History - barkeeper: Anesthesia History - barkeeper Hx Hospitalization No 06/17/22 14:38 Any Problems With Anesthesia No 06/17/22 14:38 Cholinesterase deficiency No 06/17/22 14:38 You/Your Family Experience No 06/17/22 14:38 fever (hyperthermia) with Relationship Recent Exposure to Contagious No 01/18/25 08:06 Disease Does patient have nerve No 06/17/22 14:38 stimulator Patient instructed to have device shut off --Does patient have Pacemaker No 01/18/25 08:06 or ICD? When Was Last Pacemaker Check QUESTION #4 FULL TEXT: You/Your Family Experience fever (hyperthermia) with Anesthesia Last Oral Intake Last Oral intake: Last Oral Intake NPO since 00:00 01/18/25 08:06 Meds taken in AM with sips of Yes 01/18/25 08:06 water? Meds patient instructed to apresoline , labetalol, 01/18/25 08:06 take am of surgery synthroid PONV PONV - barkeeper: PONV - barkeeper Female HX of Motion Sickness HX of N/V After Surgery Non-Smoker Duration of Surgery greater than 60 minutes Number of Risk Factors PONV Score Height & Weight Height & Weight: Anesthesia: Height & Weight Height 5 ft 10 in 01/18/25 08:06 Weight: 77.9 kg 01/18/25 08:06 Body Mass Index (BMI) 24.6 01/18/25 08:06 Respiratory Assessment Respiratory Assessment - barkeeper: Respiratory Tract Infection Hx - barkeeper Hx Respiratory Tract Infection No 06/17/22 14:38 STOP Sleep Apnea STOP Sleep Apnea - barkeeper: STOP Sleep Apnea - barkeeper Hx Hypertension Yes 01/13/25 14:31 Hx Sleep Apnea No 01/06/25 22:50 CPAP No 06/19/22 11:28 BIPAP No 01/26/20 20:20 Do you snore loudly (louder No 01/06/25 22:50 than talking or can be heard Do you often feel tired/ No 01/06/25 22:50 fatigued/ sleepy during daytime? Has anyone observed you stop No 01/06/25 22:50 breathing during sleep? STOP Results Negative 01/06/25 22:50 QUESTION #5 FULL TEXT : Do you snore loudly (louder than talking or can be heard through closed doors)? 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 - barkeeper: Tobacco Use History - barkeeper Tobacco Use Smoking Status Current every day smoker 01/07/25 10:25 Hx Tobacco Use Yes 01/06/25 22:50 Years Smoking Packs Smoked per Day Smoking Cessation Date was within the last 15 years Hx Smoking Cessation Date Hx Smoking Cessation No 01/06/25 22:50 Counseling Hematologic Medial History Hematologic Hx - barkeeper: Hematologic Medical Hx - production packager Hx of Blood Transfusion Hx of Transfusion in last 3 Months Date of Last Transfusion (if within last 3 months) Ever experience any problems with transfusion(s)? Specify any problems Hx of Preganancy in last 3 Months Nurse Filling Out Transfusion & Questions: Date: Time: Patient unable to answer at Yes 01/06/25 22:50 this time (ie. confused, unrespo /Reproduction History /Reproductive History - barkeeper: /Reproductive Hx- barkeeper Hx Now Gestational Age (in weeks): EDC: Hx Hx Para Hx Section SAB No 09/18/21 19:57 Active Medications Active Medications: Current Medications Generic Name Dose Route Start Last Admin Trade Name Freq PRN Reason Stop Dose Admin Acetaminophen 650 mg 01/07/25 19:44 01/17/25 15:43 Acetaminophen 650 Mg/20 Ml Udc GT 650 mg Q6H PRN PRN Administration Pain 1-10 Or Fever>100.7 Albuterol/Ipratropium 3 ml 01/14/25 08:30 01/18/25 07:10 Ipratropium/Albuterol Sulfate 3 Ml Ampul.Neb INHALATION 01/19/25 23:59 3 ml Q4HWA.RT PEPITO Administration Alteplase, Recombinant 2 mg 01/18/25 08:00 Alteplase 2 Mg/2 Ml Vial IV X1 PRN HD catheter dysfunction Amlodipine Besylate 10 mg 01/17/25 11:35 01/17/25 12:05 Amlodipine 10 Mg Tablet PO Not Given DAILY PEPITO Protocol Calamine/Phenol 1 applic 01/12/25 14:07 01/18/25 06:38 Menthol/Lanolin/Calamine/Znox 113 Gm Tube TOPICAL 1 applic TID PEPITO Administration Protocol Glucagon 1 mg 01/08/25 19:43 Glucagon 1 Mg/Ml Syringe IM X1 PRN Hypoglycemia Protocol Hemodialysis Solution 6 bag 01/18/25 08:30 Pureflow B 3k Dialysis Soln 1 Bag PF 01/18/25 20:19 UD PEPITO Protocol Heparin Sodium (Porcine) 5,000 unit 01/08/25 22:00 01/17/25 15:43 Heparin Injection (Vial) 5,000 Unit/Ml Vial SC 5,000 unit Q8 PEPITO Administration Heparin Sodium (Porcine) 2,500 units 01/11/25 12:54 01/16/25 12:30 Heparin 10,000 Units/10 Ml Vial IV 1,300 units UD PRN Administration Dialysis Cath Heparin Flush Heparin Sodium (Porcine) 1,000 - 3,000 units 01/18/25 08:00 Heparin 10,000 Units/10 Ml Vial IV X1 PRN HD catheter closing Hydralazine HCl 5 mg 01/17/25 11:35 Hydralazine 20 Mg/Ml Vial IV Q4H PRN PRN SBP more than 160 mmHg Protocol Hydralazine HCl 25 mg 01/17/25 14:00 01/18/25 06:38 Hydralazine 25 Mg Tablet PO 25 mg TID PEPITO Administration Protocol Sodium Chloride 250 mls @ 15 mls/hr 01/06/25 21:53 01/15/25 15:18 IV 0 mls/hr .[id number] PRN Infusion Saline Flush Sodium Chloride 250 mls @ 15 mls/hr 01/06/25 21:53 01/10/25 04:31 IV Infused .[id number] PRN Infusion Additional IVPB Infusion Dextrose 250 mls @ 0 mls/hr 01/08/25 19:43 01/13/25 11:05 Dextrose 10%-Water IV Infused .Q0M PRN Infusion HYPOGLYCEMIA Protocol As Directed Dextrose 250 mls @ 999 mls/hr 01/09/25 11:00 01/13/25 18:30 Dextrose 10%-Water IV Infused .Q16M PRN Infusion Hypoglycemic Protocol Protocol Cefepime HCl 0.5 gm/ Sodium 55 mls @ 100 mls/hr 01/16/25 10:00 01/17/25 10:25 Chloride IV Infused Q24 PEPITO Infusion Insulin Glargine 10 unit 01/16/25 10:00 01/17/25 21:23 Insulin Glargine-Yfgn 100 Unit/Ml Pen SC 10 unit BID PEPITO Administration Insulin Human Lispro 0 unit 01/13/25 18:00 01/18/25 06:38 Insulin Lispro 100 Unit/Ml Insuln.Pen SC Not Given Q6 PEPITO Protocol Labetalol HCl 20 mg 01/15/25 12:00 01/18/25 06:15 Labetalol 20 Mg/4 Ml Vial IV 20 mg Q6H PEPITO Administration Levothyroxine Sodium 25 mcg 01/08/25 06:00 01/18/25 06:39 Levothyroxine 25 Mcg Tablet GT 25 mcg DAILY@0600 PEPITO Administration Metoclopramide HCl 5 mg 01/11/25 14:00 01/18/25 06:15 Metoclopramide 10 Mg/2 Ml Vial IV 5 mg Q8 PEPITO Administration Ondansetron HCl 4 mg 01/06/25 18:55 Ondansetron 4 Mg/2 Ml Vial IV Q8H PRN PRN NAUSEA/VOMITING Sodium Chloride 10 - 40 ml 01/06/25 21:53 01/18/25 06:20 0.9% Saline Lock 10 Ml Syringe IV 10 ml UD PRN Administration SALINE FLUSH Sodium Chloride 10 ml 01/11/25 12:54 0.9% Saline Lock 10 Ml Syringe IV UD PRN Dialysis Catheter Flush Sodium Chloride 1,000 ml 01/18/25 08:00 0.9% Normal Saline 1,000 Ml Iv.Soln. OPERA.SITE X1 PEPITO Sodium Chloride 200 ml 01/18/25 08:00 0.9% Normal Saline 1,000 Ml Iv.Soln. IV X1 PRN to maintain SBP >90mmHg during Dialysis [facility] Medical History 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 Tobacco use disorder Polyneuropathy due to type 1 diabetes mellitus Wound discharge MRSA infection Marijuana use Open wound Thyroid disease Insulin dependent diabetes mellitus Arthritis Uses wheelchair Bladder disease Injury of back Difficulty chewing Dietary restriction Amputation of left lower extremity below knee Type 1 diabetes Current use of insulin Back pain due to injury Stroke Restless legs History of stress test Gastroparesis Vision loss of right eye Vision loss of left eye Hearing loss, left Hearing loss, right Anemia Substance abuse Alcohol abuse Anxiety Depression Hypothyroidism Diabetes Chronic pain Rheumatoid arthritis Osteoporosis Pancreatitis GERD (gastroesophageal reflux disease) Hepatitis Smoker Asthma Chest pain Hypertension Migraines Seizures Charcot foot due to diabetes mellitus Charcot ankle Neuropathy Cellulitis (~09/15/21) Diabetes mellitus Home Medications ?Medication ?Instructions ?Recorded ?Last Taken ?Type gabapentin 300 mg capsule 300 mg PO 4X/DAY nerve pain 08/13/20 06/18/22 History pantoprazole 40 mg tablet,delayed 40 mg PO DAILY gerd 08/13/20 06/18/22 History release sertraline 50 mg tablet (Zoloft) 50 mg PO DAILY depression 03/05/22 06/18/22 History amitriptyline 25 mg tablet 25 mg PO QHS sleep 06/17/22 06/18/22 History insulin glargine 100 unit/mL (3 35 unit (0.35 mL) subcut QHS #31.5 09/23/23 Unknown Rx mL) subcutaneous pen (Lantus mL Solostar U-100 Insulin) lisinopril 40 mg tablet 40 mg PO QDAY BP 11/11/23 Unknown History amlodipine 10 mg tablet 10 mg PO DAILY #90 tabs 03/09/24 Unknown Rx atorvastatin 20 mg tablet 20 mg PO QHS #90 tabs 05/02/24 Unknown Rx blood sugar diagnostic (OneTouch #100 ea 05/02/24 Unknown Rx Verio test strips) blood-glucose meter (OneTouch #1 ea 05/02/24 Unknown Rx Verio Reflect Meter) blood-glucose sensor (FreeStyle #2 ea 08/01/24 Unknown Rx Maikel 2 Plus Sensor device) levothyroxine 25 mcg tablet 25 mcg PO DAILY thyroid #90 tabs 08/02/24 Unknown Rx cholecalciferol (vitamin D3) 125 125 mcg PO QDAY #90 caps 08/31/24 Unknown Rx mcg (5,000 unit) capsule insulin lispro 100 unit/mL 60 unit (0.6 mL) continuous 09/27/24 Unknown Rx subcutaneous solution (Humalog subcutaneous infusion .continuous U-100 Insulin) #54 mL insulin pump cart,auto,BT,G6/L #10 ea 11/21/24 Unknown Rx (Omnipod 5 (G6/Maikel 2 Plus) subcutaneous cartridge) insulin pump cartridge,automated 01/08/25 Unknown History dose,BT with controller subcutaneous Allergy/AdvReac Type Severity Reaction Status Date / Time No Known Allergies Allergy Verified 08/01/24 14:25 Family History Other Cancer Diabetes Heart disease Surgical History History of bilateral cataract extraction H/O tooth extraction History of left below knee amputation Social History Smoking Status: Current every day smoker tobacco type: cigarettes Review of Systems (Anesthesia) ROS Narrative System reviewed and no additional complaints, except as documented. Physical Exam Resp clear to auscultation bilaterally
[2025-01-18] MEDS: Lidocaine 1% /Epi 1:100 (50ml) 50 ML VIAL (09:37)
--- NOTE | 2025-01-18 09:41 | PCM.OPRPT ---
Operative Report (Standard) Operative Information Date of Procedure: 01/18/25 Pre-Operative Diagnosis: DIYA Post-Operative Diagnosis: same Surgery/Procedure Performed: Placement of right IJ tunneled dialysis catheter ice cream mixer: No Type of Anesthesia: Local MAC RN Documented Start/Stop Times: Operation Date: 01/18/25 09:00 Case Time Into Pre-Op 01/18/25 07:52 Anesthesia Start 01/18/25 09:03 Into Room 01/18/25 09:03 Out of Pre-Op 01/18/25 09:03 Procedure Start 01/18/25 09:22 Procedure End 01/18/25 09:40 Anesthesia End 01/18/25 09:44 Out of Room 01/18/25 09:44 Into Recovery 01/18/25 09:50 Procedure Start Time: 09:22 Procedure Stop Time: 09:40 Select all DRAINS/GRAFTS/IMPLANTS that apply: Implanted device Implanted device details: 19 cm palindrome 14.5 [place] Lot [id number] ref [id number] Special Medications: Ancef 2 g IV x 1 Estimated Blood Loss: 5 cc Specimen collected: No Description of surgery: After informed consent was given, the patient was brought to the operating room and placed in the supine position. Appropriate time out protocol was followed. He was then given IV conscious sedation for anesthesia. The patient's right upper chest and neck were then prepped with a surgical skin preparation and sterile surgical drapes were placed. After proper landmarks were ascertained, the skin at the upper right chest area was then infiltrated with 1:1 mixture of 1% lidocaine with epinephrine and 0.5% maricaine. A needle trocar was then inserted into the right internal jugular vein with ultrasound guidance-multiple vessels were viewed with u/s and the right IJ was chosen-- and there was good aspiration of venous blood. A wire was then threaded into the needle trocar and this was visualized under fluoroscopy to ensure that the wire was in the superior vena cava. Once this was done, then the needle trocar was removed. A small incision was made with an 11 blade knife at the wire entrance site. The dilator x2 with the introducer sheath attached was then placed over the wire into the right internal jugular vein via the Seldinger technique and this was visualized under fluoroscopy. Next the introducer and sheath were in proper position as visualized by fluoroscopy. The location of the cuffed was estimated on the skin, an incision was made with a 15 blade scalpel. The 14.5 Fr x 19 cm Palindrome dual lumen was tunneled from the chest incision to the right neck incision. The sheath was removed. The catheter was placed through the introducer and was positioned with its tip at the junction of the superior vena cava and the right atrium as visualized under fluoroscopy. The cuff of the catheter was in the subcutaneous tissue. The catheter flushed and aleshia well with saline. Catheter was also flushed with 1.6 cc of 1-10,000 of heparin. Hemostasis was assured. Silver dressing was placed at the catheter exit site. Catheter was sutured with 3-0 nylon sutures. The neck incision was sutured with interrupted 3-0 Vicryl interrupted sutures x2 and Steri-Strips were placed. A large OpSite was placed over the catheter site and a small OpSite over the neck incision. The patient tolerated the procedure well. Implants Used: Surgical Findings: See operative report Complications Complications: No
--- NOTE | 2025-01-18 09:54 | RAD_ITS ---
PROCEDURE: CHEST 1 VIEW (PORTABLE) 01/18/2025 REASON FOR EXAM: DIALYSIS CATHETER TECHNIQUE: Frontal view of the chest. COMPARISON: 01/14/2025 FINDINGS: Right IJ catheter has been placed with the right subclavian catheter, tip is in the distal SVC, no complications. Lungs are expanded with improvement since the previous study. Previously noted patchy opacifications have diminished since the previous study but have not resolved. Follow-up recommended to ensure complete resolution. No demonstrated effusions. Heart and mediastinum within normal range Degenerative bony changes RAD/Chest 1 View (Portable) IMPRESSION: Satisfactory appearance of the right subclavian catheter, no complications Lung beaulieu show significant improvement compared to the previous study with ne ar-complete resolution of diffuse patchy opacifications in both lung beaulieu. Follow-up recommended to ensure complete r esolution Reading Location: [id number]
--- NOTE | 2025-01-18 09:59 | PCM.POST.ANE ---
Anesthesia: Postop Eval I Current Vital Signs Temperature: 98.4 F Pulse Rate: 84 Blood Pressure: 171/89 Respiratory Rate: 20 Pulse Ox: 99 Oxygen Delivery Method: Room Air Assessment Airway patent: Yes Spontaneous unlabored respirations: Yes Mental status: Awake and Calm nausea: No Vomiting: No Anesthesia Complication: No Fluid Hydration Crystalloid volume administer (ml): 100 Total IV fluid infused: 100 Progress Note Anesthesia document: Postop Eval 1 completed: Yes
[2025-01-18] MEDS: Cefepime HCl 0.5 GM in 0.9% Normal Saline (50mL Bag) 50 ML IV (11:24)
[2025-01-18] MEDS: Insulin Glargine-YFGN 100 UNIT/ML Pen 10 UNIT SC (11:30)
--- NOTE | 2025-01-18 13:29 | PCM.PN.HOSP ---
Reason for Visit Reason for Visit: Diagnoses Type 1 diabetes mellitus with ketoacidosis with coma (01/06/25) Type 2 diabetes mellitus with ketoacidosis without coma (01/06/25) Acute respiratory failure with hypoxia (01/06/25) Acute kidney failure, unspecified (01/06/25) Altered mental status, unspecified (01/06/25) Objective Data Objective Data Vital Signs: Vital Signs Temp Pulse Resp BP Pulse Ox O2 Del Method O2 Flow Rate 98.0 F 98 16 185/99 H 94 Room Air 2 01/18/25 13:00 01/18/25 13:00 01/18/25 13:00 01/18/25 13:00 01/18/25 13:00 01/18/25 13:00 01/18/25 08:41 FiO2 30 01/18/25 08:41 Oxygen Flow Rate (L/min) 2 Oxygen Delivery Method Room Air Weight: 171 lb 11.841 oz Body Mass Index (BMI) 24.5 Intake & Output: Intake and Output for Last 24 Hours 01/16/25 01/17/25 01/18/25 23:59 23:59 23:59 Intake Total 255 / 255 575 / 575 425 / 425 Output Total 2350 / 2575 1050 / 1250 702 / 702 Balance -2095 / -2320 -475 / -675 -277 / -277 Lab / Micro Data 01/18/25 05:33 01/18/25 05:20 Labs: Laboratory Results - last 24 hr 01/17/25 09:48: POC Glucose 122 H 01/17/25 18:18: POC Glucose 202 H 01/17/25 21:16: POC Glucose 140 H 01/17/25 23:40: POC Glucose 158 H 01/18/25 05:20: Sodium 144, Potassium 3.1 L, Chloride 106, Carbon Dioxide 16.1 L, Anion Gap 22 H, BUN 59 H, Creatinine 6.10 H, Estim Creat Clear Calc 14.96 L, Est GFR (MDRD) Non-Af 10 L, BUN/Creatinine Ratio 9.7 L, Glucose 143 H, Calcium 9.3, Phosphorus 4.6 H, Magnesium 1.8, Total Bilirubin 0.41, Direct Bilirubin 0.22, AST 21, ALT 24, Alkaline Phosphatase 108, Total Protein 5.6 L, Albumin 3.2 L, Globulin 2.5, Hep Bs Antigen Nonreactive 01/18/25 05:33: WBC 8.6, RBC 2.65 L, Hgb 7.6 L, Hct 22.8 L, MCV 86.0, MCH 28.7, MCHC 33.3, RDW Std Deviation 48.0 H, RDW Coeff of Candace 15.4 H, Plt Count 242, MPV 11.3, Immature Gran % (Auto) 0.600, Neut % (Auto) 69.0, Lymph % (Auto) 13.5 L, [place] % (Auto) 13.5 H, Eos % (Auto) 2.7, Baso % (Auto) 0.7, Absolute Neuts (auto) 6.0, Absolute Lymphs (auto) 1.17, Nucleated RBC % 0 01/18/25 06:14: POC Glucose 139 H 01/18/25 06:38: PT 15.6 H, INR 1.2, APTT 31.4 01/18/25 11:12: POC Glucose 163 H Micro: Microbiology 01/15/25 11:35 Blood Culture (Wb) - Right Wrist Blood Culture - Preliminary No growth in 48 hours. 01/15/25 11:30 Blood Culture (Wb) - Pic Blood Culture - Preliminary No growth in 48 hours. 01/06/25 16:28 Blood Culture (Wb) - Anticubital Left Blood Culture - Final No growth in 5 days. 01/06/25 16:41 Blood Culture (Wb) - Right Hand Blood Culture - Final No growth in 5 days. 01/07/25 Unknown Sputum, Induced/Lukens Gram Stain - Final 01/07/25 Unknown Sputum, Induced/Lukens Respiratory Culture - Final Presumptive C albicans 01/07/25 18:45 Urine Catheter - Brady Legionella Antigen - Final 01/07/25 18:45 Urine Catheter - Brady Streptococcus pneumoniae Antigen (M - Final 01/07/25 16:30 Nasal Secretion MRSA (PCR) - Final 01/07/25 09:32 Mucosa - Nasopharyngeal Respiratory Panel (PCR) - Final 01/06/25 22:15 Nasal Secretion MRSA (PCR) - Final Radiography Diagnostic Testing: Radiology Impression Chest X-Ray 01/18/25 09:54 IMPRESSION: Satisfactory appearance of the right subclavian catheter, no complications Lung beaulieu show significant improvement compared to the previous study with near-complete resolution of diffuse patchy opacifications in both lung beaulieu. Follow-up recommended to ensure complete resolution Reading Location: [id number] Rhythm Strip Rhythm Strip: Sinus Tach Rate: 105 Physical Exam Narrative Seen and examined. Patient has right subclavian tunnel dialysis catheter. Blood pressure is high. BP 185/99. [facility] patient is confused and agitated after procedure but currently quiet and responding well The patient was extubated on 01/13/2025. Patient had right IJ temporary dialysis catheter inserted and dialysis initiated 01/11. No good flow on the catheter therefore pulled out. Physical exam: General: Awake, alert, oriented x 3 HEENT: Atraumatic, Normocephalic. Seated Oral: Oral mucosa dry. N.p.o. Neck: Supple, No JVD, Negative Carotid Bruits. Right IJ dialysis catheter Chest wall/Lungs: Right subclavian tunneled dialysis catheter. Air entry diminished in bilateral lung bases. Mild coarse transmitted sounds Cardiovascular: Sinus rhythm, soft heart sound, no M/G/R Abdomen: Bowel Sounds sluggish, Soft, Non Tender, Non-Distended : Oliguria Brady catheter, oliguria no renal angle tenderness. No suprapubic tenderness. Extremities: No edema, Capillary Refill Less than 3 Seconds. Left BKA. Extremities pale Skin: Multiple scabs in lower extremities Musculoskeletal: No Tenderness to Palpation of Joints or Extremities Neurological: No obvious lateralizing neurological sign, detailed neuroexam not done Psych/Mental Status: Quite. Behavior more organized Assessment & Plan Assessment/Plan (1) Acute hypoxic respiratory failure: (2) DKA (diabetic ketoacidoses): QUALIFIERS: Diabetes mellitus type: type 1 Diabetes mellitus complication detail: with coma Qualified Code(s): E10.11 - Type 1 diabetes mellitus with ketoacidosis with coma PLAN: Plan Patient is a 49-year-old male who presented to [facility] ED on 01/06/2025 with altered mental status and hyperglycemia. 1. DKA with persistent anion gap metabolic acidosis, poorly controlled type 1 diabetes mellitus with diabetic neuropathy ? Follows with Dr. Naik in the office and has had poor compliance with insulin pump noted. A1c 10.7% on admit, similar to last office A1c. Labs on admit consistent with DKA. Initial ABG with pH 6.93, pCO2 15, blood glucose 788 and bicarb on BMP was less than 5. Had good improvement on ABG initially with treatment with insulin drip. 01/12: Beta-hydroxybutyrate 0.3 in normal range. AG 17, bicarb 19, K2.7. In the interim, insulin drip was changed to intermittent subcu glargine and lispro insulin 01/14: Electrolytes potassium, sodium and chloride normal. Bicarb low, anion gap 17. Magnesium 1.4. Phosphorus 3.4. 01/15:: defence force member other ranks shows still sinus tachycardia and PVCs. Electrolytes shows bicarb 12.6. Leukocytosis 16.1 K. Still n.p.o. undergoing evaluation by speech therapist. Transfer to PCU. 01/16: Heart rate controlled. Blood pressure high. Chlorthalidone started 2. Acute hypoxic respiratory failure ? Sludge Mill Operator following. Had worsening oxygen requirements on admit and chest x-ray showed severe bilateral pulmonary infiltrates. Intubated on morning of 01/07. Per global supply chain vice president, differential diagnosis includes pulmonary edema, aspiration event and ARDS. BNP elevated to 4000 but lower clinical suspicion for heart failure; echo with normal EF and no concerning findings. SBT completed on morning of 01/10 and unfortunately patient failed with concern for an aspiration event. Had bilious contents suctioned from ET tube and was suspected this may be due to gastroparesis from poorly controlled diabetes as above. Treating with Reglan as above. Continue to treat with IV cefepime and scheduled DuoNebs. Oxygen requirements remain low but patient with significant agitation with spontaneous awakening trials. Ventilator management and further recommendations per global supply chain vice president. 01/12: Still intubated. Continue IV cefepime, scheduled DuoNeb. 01/13: Patient was extubated on 01/13. He is in delirium with hyperactive, inattention and delirium advised low-dose Precedex drip 01/14: On 4 L of oxygen 01/16 currently on 2 L of oxygen. 01/17: On 2 L of oxygen. BP 164/105. Heart rate 89/min. Oropharyngeal dysphagia and aspiration. Currently NPO. Discussed with the speech therapist. Plan for MBS tomorrow. 01/18: Pulse ox 94% on room air. Hypoxia resolved. 3. Acute metabolic encephalopathy ? Sludge Mill Operator following as above. Presumed multifactorial from DKA with severe metabolic acidosis as well as respiratory failure. Remains intubated and sedated at this time. Has nonpurposeful movements but not following commands. Monitor. 01/14: Delirious. On Precedex drip. 01/15: Patient follows simple command. Feels hungry. Delirium has resolved. Off Precedex drip 01/16: Patient is behaving more organized. 01/18: Intermittent encephalopathy related to anesthesia 4. Severe DIYA ? Nephrology following. Likely secondary to ATN primarily due to hypotension in setting of DKA with volume depletion. Baseline creatinine around 0.9. Creatinine 2.5 on admission. Significantly worsened initially and patient was anuric. However, with IV albumin and high-dose diuretics patient began to have significant urine output on 01/08. Unfortunately, creatinine only improved slightly and then has since been steadily worsening with minimal urine output. Most recent creatinine 6.15 on 01/11. Utility Service Worker made decision for dialysis. Sludge Mill Operator placed temporary HD line on 01/11 and plan is for dialysis to be initiated later this evening. Appreciate further nephrology recommendations. 01/12: Undergoing hemodialysis. 01/13: Still oliguric. On hemodialysis. 01/14: Dialysis as per wool broker recommendation 01/16: Plan for dialysis today 01/17: Right IJ dialysis catheter pulled out. Discussed with the surgeon and she said for tunnel cystoscopy tomorrow probably on left IJ. 01/18: Patient getting hemodialysis through right subclavian tunneled dialysis catheter. As per charting patient denied 100 mL urine output in last 24 hours 5. Acute on chronic anemia and thrombocytopenia since admission, ? Hemoglobin 12.9 on admit, baseline appears to be around 13-14. Hemoglobin downtrending during hospitalization but this was thought to be secondary to hemodilution from severe volume overload. Had one hemoglobin read of 8.4 on morning of 01/09; however hemoglobin was up to 10 on afternoon of 01/09 and has remained stable. No dark or bloody bowel movements noted. Will continue IV PPI twice daily for now. Monitor daily CBC. Will hold off on GI consult at this time. 01/12: Patient platelet count steadily decreased from 250K in July 08-158 on 01/07/2025, trough 52 on 01/09. Since that had slight recovery 01/18: Patient hemoglobin 7.6 dropped from 9.0. Ferritin 298, serum iron, TIBC and unsaturated IBC low but iron saturation normal. Most likely due to DIYA on CKD. IV iron ordered 6. Hyponatremia, resolved ? Sodium 122 on admit, corrected sodium 133 in setting of severe hyperglycemia. Resolved with IV fluids on admission. 7. Acute on chronic debility with history of left BKA ? PT/OT/case management following. Appreciate therapy recommendations. 8. Hypertension: Blood pressure has been in the 150s sometimes goes high 170. Amlodipine 10 mg daily started. Hydralazine p.o. scheduled and IV as needed for SBP more than 160 mmHg ordered. MORGAN/ARB are contraindicated. Chronic medical conditions: ? Class II obesity: BMI 37 on admit. Complicates hospital course, care and prognosis. ? History of PAD, hypertension, hyperlipidemia: Holding home amlodipine, lisinopril and statin. ? GERD: Treating with IV PPI twice daily as above. ? Hypothyroidism: Continue home Synthroid. DVT prophylaxis: Heparin subcut CODE STATUS: Full code, unverified Charges/Coding Visit Charges Inpatient E&M: 20014 Subs Hosp L2
[2025-01-18] MEDS: 0.9% Normal Saline 1,000 ML IV.SOLN. 1000 ML OPERA.SITE (13:31)
[2025-01-18] MEDS: PureFlow B 3K Dialysis Soln 1 BAG 6 BAG PF (13:31)
[2025-01-18] MEDS: proMETHazine 25 MG/ML Syringe 12.5 MG IM (14:30)
--- NOTE | 2025-01-18 14:50 | CASEMGMT ---
Social Work Presented to patient's room to follow-up on choices for long-term facility. Patient sitting in bed, receiving dialysis treatment. This magazine writer attempted to gauge the patient in conversation, but the patient appeared somewhat confused as evidenced by comments that they say I am in the hospital. Explored whether patient remembered his son visiting last evening and patient did not. Let patient know this magazine writer is trying to work through the patient's plan for discharge. This magazine writer noted the SNF choice list on the patient's bedside table, and there were no type of chauhan or indication of any choices. Called patient's son Koko and had to leave a voicemail requesting callback with SNF choices. Plan: Social work will continue to follow and assist with discharge planning. Anticipate long-term facility and still waiting on choices so referrals can be made. -NOAH Iniguez, GAS METER READER *This note was generated with Stubmatic dictation software. It may contain incorrect words, spelling, and punctuation that were not noted in review of the chart prior to signing*
--- NOTE | 2025-01-18 14:54 | POSTOPAN2_ITS ---
Anesthesia Postop Eval I Sum Postop Eval Completion status Anesthesia document: Postop Eval 1 completed: Yes Anesthesia Postop Eval I Summary Anesthesia Postop Eval I Summary: Anesthesia Postop Eval I: Assessment Summary Airway patent Yes 01/18/25 10:01 CELL SUPPORT [email or web address] Spontaneous unlabored Yes 01/18/25 10:01 CELL SUPPORT OPERATOR.JDEF respirations Mental status Awake,Calm 01/18/25 10:01 CELL SUPPORT OPERATOR.JDEF nausea No 01/18/25 10:01 CELL SUPPORT OPERATOR.JDEF Vomiting No 01/18/25 10:01 CELL SUPPORT OPERATOR.JDEF Anesthesia Postop Eval I: Fluid Summary Crystalloid volume administer 100 01/18/25 10:01 CELL SUPPORT OPERATOR.JDEF (ml) Colloids volume administered ( ml) Blood Product volume administered (ml) Total IV fluid infused 100 01/18/25 10:01 CELL SUPPORT OPERATOR.JDEF Anesthesia Postop Eval I: Summary Notes Anesthesia Complication No 01/18/25 10:01 CELL SUPPORT OPERATOR.JDEF Anesthesia Complication Comment: Post-operative progress note Anesthesia: Postop Eval II Evaluation Mental status: Awake Pain Level: 1 nausea: No Vomiting: No
--- NOTE | 2025-01-18 14:54 | PCM.POSTANE2 ---
Anesthesia Postop Eval I Sum Postop Eval Completion status Anesthesia document: Postop Eval 1 completed: Yes Anesthesia Postop Eval I Summary Anesthesia Postop Eval I Summary: Anesthesia Postop Eval I: Assessment Summary Airway patent Yes 01/18/25 10:01 [email or web address] Spontaneous unlabored Yes 01/18/25 10:01 [email or web address] respirations Mental status Awake,Calm 01/18/25 10:01 [email or web address] nausea No 01/18/25 10:01 COMBER [email or web address].JDEF Vomiting No 01/18/25 10:01 [email or web address] Anesthesia Postop Eval I: Fluid Summary Crystalloid volume administer 100 01/18/25 10:01 [email or web address] (ml) Colloids volume administered ( ml) Blood Product volume administered (ml) Total IV fluid infused 100 01/18/25 10:01 COMBER [email or web address] Anesthesia Postop Eval I: Summary Notes Anesthesia Complication No 01/18/25 10:01 COMBER [email or web address] Anesthesia Complication Comment: Post-operative progress note Anesthesia: Postop Eval II Evaluation Mental status: Awake Pain Level: 1 nausea: No Vomiting: No
--- NOTE | 2025-01-18 16:42 | PCM.PN.REN ---
Subjective Subjective no new events Objective Data Objective Data Vital Signs: Vital Signs Temp Pulse Resp BP Pulse Ox O2 Del Method O2 Flow Rate 98.0 F 90 18 136/72 H 100 Room Air 2 01/18/25 13:00 01/18/25 16:30 01/18/25 15:00 01/18/25 16:30 01/18/25 15:00 01/18/25 15:00 01/18/25 08:41 FiO2 30 01/18/25 08:41 Oxygen Flow Rate (L/min) 2 Oxygen Delivery Method Room Air Weight: 77.9 kg Body Mass Index (BMI) 24.5 Intake & Output: Intake and Output for Last 24 Hours 01/16/25 01/17/25 01/18/25 23:59 23:59 23:59 Intake Total 255 / 255 575 / 575 425 / 425 Output Total 2350 / 2575 1050 / 1250 702 / 702 Balance -2095 / -2320 -475 / -675 -277 / -277 Lab / Micro Data 01/18/25 05:33 01/18/25 05:20 Labs: Laboratory Results - last 24 hr 01/17/25 18:18: POC Glucose 202 H 01/17/25 21:16: POC Glucose 140 H 01/17/25 23:40: POC Glucose 158 H 01/18/25 05:20: Sodium 144, Potassium 3.1 L, Chloride 106, Carbon Dioxide 16.1 L, Anion Gap 22 H, BUN 59 H, Creatinine 6.10 H, Estim Creat Clear Calc 14.96 L, Est GFR (MDRD) Non-Af 10 L, BUN/Creatinine Ratio 9.7 L, Glucose 143 H, Calcium 9.3, Phosphorus 4.6 H, Magnesium 1.8, Total Bilirubin 0.41, Direct Bilirubin 0.22, AST 21, ALT 24, Alkaline Phosphatase 108, Total Protein 5.6 L, Albumin 3.2 L, Globulin 2.5, Hep Bs Antigen Nonreactive 01/18/25 05:33: WBC 8.6, RBC 2.65 L, Hgb 7.6 L, Hct 22.8 L, MCV 86.0, MCH 28.7, MCHC 33.3, RDW Std Deviation 48.0 H, RDW Coeff of Candace 15.4 H, Plt Count 242, MPV 11.3, Immature Gran % (Auto) 0.600, Neut % (Auto) 69.0, Lymph % (Auto) 13.5 L, [place] % (Auto) 13.5 H, Eos % (Auto) 2.7, Baso % (Auto) 0.7, Absolute Neuts (auto) 6.0, Absolute Lymphs (auto) 1.17, Nucleated RBC % 0 01/18/25 06:14: POC Glucose 139 H 01/18/25 06:38: PT 15.6 H, INR 1.2, APTT 31.4 01/18/25 11:12: POC Glucose 163 H Micro: Microbiology 01/15/25 11:35 Blood Culture (Wb) - Right Wrist Blood Culture - Preliminary No growth in 48 hours. 01/15/25 11:30 Blood Culture (Wb) - Pic Blood Culture - Preliminary No growth in 48 hours. 01/06/25 16:28 Blood Culture (Wb) - Anticubital Left Blood Culture - Final No growth in 5 days. 01/06/25 16:41 Blood Culture (Wb) - Right Hand Blood Culture - Final No growth in 5 days. 01/07/25 Unknown Sputum, Induced/Lukens Gram Stain - Final 01/07/25 Unknown Sputum, Induced/Lukens Respiratory Culture - Final Presumptive C albicans 01/07/25 18:45 Urine Catheter - Chen Legionella Antigen - Final 01/07/25 18:45 Urine Catheter - Chen Streptococcus pneumoniae Antigen (M - Final 01/07/25 16:30 Nasal Secretion MRSA (PCR) - Final 01/07/25 09:32 Mucosa - Nasopharyngeal Respiratory Panel (PCR) - Final 01/06/25 22:15 Nasal Secretion MRSA (PCR) - Final Radiography Diagnostic Testing: Radiology Impression Chest X-Ray 01/18/25 09:54 IMPRESSION: Satisfactory appearance of the right subclavian catheter, no complications Lung beaulieu show significant improvement compared to the previous study with near-complete resolution of diffuse patchy opacifications in both lung beaulieu. Follow-up recommended to ensure complete resolution Reading Location: [facility] Rhythm Strip Rhythm Strip: Sinus Tach Rate: 105 Physical Exam Narrative alert and oriented, no acute distress S1, S2, RRR Breath sounds clear anteriorly Abdomen soft, nondistended, positive bowel sounds No edema, left BKA, no edema to thighs Assessment & Plan Assessment/Plan (1) DIYA (acute kidney injury): (2) Altered mental status: (3) Acute hypoxic respiratory failure: PLAN: Plan This is a 49-year-old male with past medical history significant for diabetes mellitus type 1, hypothyroidism, alcohol abuse presented to the ER yesterday with altered mental status changes, high glucose, admitted for DKA with severe high anion gap metabolic acidosis, started on insulin drip, received multiple liters of IV fluids. - Initially anuric DIYA likely secondary to ATN, hypotension, DKA. Patient has normal baseline creatinine. Renal ultrasound without any hydronephrosis. Massive nephrotic range proteinuria, presumably this is related to diabetes (A1C ranging 10-12% April 2023 to present). He had serologies done before which were negative. initially creatinine and urine output was improving, creatinine then started to trend upward/ Urine output dropping off. On 01/11 serum creatinine 6.15. HD initiated 01/11 doing well overall. has chen still, urine output is ok. ? voiding trial. dc plans
[2025-01-18] MEDS: Sodium Ferric Gluconat/Sucrose 250 MG in 0.9% Normal Saline (250mL Bag) 250 ML 135 MG IV (17:48)
[2025-01-19] VITALS (14 sets, daily range): BP systolic 144–179; BP diastolic 68–95; PULSE 73–106; RESP 16–20; TEMP 36.4–37; O2SAT 93–100; BMI 23.1
[2025-01-19] MEDS: 0.9% Saline Lock 10 ML Syringe IV (06:11)
[2025-01-19 06:26] LABS: Hematocrit 22.2 % (40-54); Hemoglobin 7.8 g/dL (13.0-16.5); Immature Granulocytes Count 0.040 X10^3/uL (0.0-0.0); Mean Corp Hgb Conc 35.1 g/dL (32-36); Mean Corpuscular Volume 84.7 fL (80-94); Mean Platelet Vol. 11.0 fl (6.2-12.0); NRBC Flagged by Analyzer 0 % (0-5); Platelet Count 223 K/mm3 (150-450); RBC Distribution Width CV 15.3 % (11.6-14.6); RBC Distribution Width SD 46.8 fl (35.1-43.9); Red Blood Count 2.62 M/mm3 (4.6-6.2); White Blood Count 8.2 K/mm3 (4.4-11.0)
[2025-01-19 08:18] LABS: Anion Gap 16 (5-15); BUN 35 mg/dL (4-19); BUN/Creat Ratio 9.2 RATIO (10-20); Calcium,Total 9.1 mg/dL (7.6-11.0); Carbon Dioxide 21.2 mmol/L (21.0-32.0); Chloride 107 mmol/L (98-108); Estimated Creatinine Clearance 23.95 ml/min (50-250); Glucose 70 mg/dL (70-99); Potassium 2.7 mmol/L (3.3-5.1)
[2025-01-19] MEDS: Cefepime HCl 0.5 GM in 0.9% Normal Saline (50mL Bag) 50 ML IV (09:56)
[2025-01-19] MEDS: Insulin Glargine-YFGN 100 UNIT/ML Pen 10 UNIT SC (09:57)
--- NOTE | 2025-01-19 10:14 | CASEMGMT ---
Social Work SW met w/pt in room in regard to discharge plan. As SW entered the room, pt was telling the RN his apartment is in the hospital, but then also said his apartment is in [place] and it costs $361/month. Pt informed SW also he has someone coming in to his home Thursday, Thursday, Thursday, states this is through Aging and Disabilities. Pt states that this person has made it so pt can stay at home. SW spoke w/pt about going somewhere for rehab. SW inquired w/pt if he had been to a facility before, as SW reviewed chart and it does appear pt has been to [facility] and [facility]. 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 Pt is agreeable to going somewhere for rehab. SW reviewed the closer facilities w/pt, he would like a referral to [facility] here in [place]. SW explained will call son Koko as well. SW called Koko, spoke w/him in regard to discharge plan. SW explained pt does seem to be more alert today compared to when SW spoke w/him last, however is still a bit confused. SW did ask if pt has someone coming in three times per week to assist him, son confirms that this is true. SW explained spoke w/pt about going somewhere for rehab, and pt wanted to go to [facility]. Son would prefer someplace in [place], or [facility] as it is closer for him to visit. SW explained if we switch to a [place] facility we may also need to switch dialysis facilities while in a facility in [place], and then would need to switch back to the [place] facility when pt goes home. SW explained that this would be possible, just adds another process. Son agreeable to a referral to [facility], then to [facility], as both of these facilities could potentially transport pt to dialysis here in [place]. If neither facility can take pt, son would like to explore options in [place]. SW spoke w/d/c maintenance planning clerk Siobhan, she will send out referrals to [facility] then [facility], with the information of pt's dialysis time Thursday, , Sat, chair time 7:30am, to see if transport can be provided. SW will continue to follow. NOAH Pope
--- NOTE | 2025-01-19 10:14 | CASEMGMT ---
MATT MADISON uploaded additional clinical information to [facility]. MATT MADISON called [facility] and updated regarding ongoing discharge planning. Will updatd [facility] with additional discharge information when available.
[2025-01-19] MEDS: Senna/Docusate Sodium 1 Tablet 2 TABLET PO ×2 (10:37→21:59)
--- NOTE | 2025-01-19 11:25 | CASEMGMT ---
Addendum entered by Siobhan Song 01/19/25 12:52: [facility] has accepted. Requested that precert be started. Siobhan Song DC Planning Asst. Original Note: Discharge Planning Referral sent to [facility]. Siobhan Song DC Planning Asst.
--- NOTE | 2025-01-19 12:04 | CASEMGMT ---
Social Work SW spoke w/Abby, pt's skilled nursing case manager w/[facility], inquiring about pt's discharge plan. BASILIO let Abby know that pt will be going to SNF, it is anticipated pt will go to [facility], and likely will be d/c on Thursday. Abby thanked BASILIO for the information. NOAH Pope
--- NOTE | 2025-01-19 12:48 | CASEMGMT ---
Social Work [facility] can take pt if the dialysis is changed to [place], Thursday, Thursday, Thursday. SW called son to make sure he is okay w/dialysis being changed to [facility], and that [facility] can take pt. Son Koko is agreeable. SW spoke w/pt about Koko wanting pt to go to [facility], rather than [facility]. After some discussion, pt is agreeable to this. Pt states he also spoke w/his brother about this, and is agreeable. At this moment, pt does understand that he will be going to [facility] to stay, with the goal of getting home. Pt states understanding. CM Naomi Raymundo spoke w/dialysis and they are working on switching the dialysis to [place] and Siobhan let [facility] know to start precert. NOAH Pope
[2025-01-19] MEDS: Potassium Chloride Oral Tablet 20 MEQ 40 MEQ PO ×2 (15:13→17:41)
--- NOTE | 2025-01-19 15:21 | PN.HOSP_ITS ---
Reason for Visit Reason for Visit: Diagnoses Type 1 diabetes mellitus with ketoacidosis with coma (01/06/25) Type 2 diabetes mellitus with ketoacidosis without coma (01/06/25) Acute respiratory failure with hypoxia (01/06/25) Acute kidney failure, unspecified (01/06/25) Altered mental status, unspecified (01/06/25) Objective Data Objective Data Vital Signs: Vital Signs Temp Pulse Resp BP Pulse Ox O2 Del Method O2 Flow Rate 97.9 F 106 H 16 163/81 H 100 Room Air 2 01/19/25 14:13 01/19/25 14:48 01/19/25 14:48 01/19/25 14:13 01/19/25 14:13 01/19/25 14:13 01/18/25 08:41 FiO2 30 01/18/25 08:41 Oxygen Flow Rate (L/min) 2 Oxygen Delivery Method Room Air Weight: 161 lb 9.581 oz Body Mass Index (BMI) 23.1 Intake & Output: Intake and Output for Last 24 Hours 01/17/25 01/18/25 01/19/25 23:59 23:59 23:59 Intake Total 575 / 575 935 / 935 705 / 705 Output Total 1050 / 1250 2787 / 2787 1000 / 1000 Balance -475 / -675 -1852 / -1852 -295 / -295 Lab / Micro Data 01/19/25 05:45 01/19/25 05:45 Labs: Laboratory Results - last 24 hr 01/18/25 17:34: POC Glucose 118 H 01/18/25 23:13: POC Glucose 91 01/19/25 05:39: POC Glucose 65 L 01/19/25 05:45: WBC 8.2, RBC 2.62 L, Hgb 7.8 L, Hct 22.2 L, MCV 84.7, MCH 29.8, MCHC 35.1 D, RDW Std Deviation 46.8 H, RDW Coeff of Candace 15.3 H, Plt Count 223, MPV 11.0, Immature Gran % (Auto) 0.500, Neut % (Auto) 66.1, Lymph % (Auto) 17.6 L, [place] % (Auto) 11.6 H, Eos % (Auto) 3.7, Baso % (Auto) 0.5, Absolute Neuts (auto) 5.4, Absolute Lymphs (auto) 1.44, Nucleated RBC % 0, Sodium 145, P otassium 2.7 L*, Chloride 107, Carbon Dioxide 21.2, Anion Gap 16 H, BUN 35 H, C reatinine 3.81 H, Estim Creat Clear Calc 23.95 L, Est GFR (MDRD) Non-Af 18 L, B UN/Creatinine Ratio 9.2 L, Glucose 70, Calcium 9.1 01/19/25 06:21: POC Glucose 148 H 01/19/25 10:43: POC Glucose 164 H Micro: Microbiology 01/15/25 11:35 Blood Culture (Wb) - Right Wrist Blood Culture - Preliminary No growth in 48 hours. 01/15/25 11:30 Blood Culture (Wb) - Pic Blood Culture - Preliminary No growth in 48 hours. 01/06/25 16:28 Blood Culture (Wb) - Anticubital Left Blood Culture - Final No growth in 5 days. 01/06/25 16:41 Blood Culture (Wb) - Right Hand Blood Culture - Final No growth in 5 days. 01/07/25 Unknown Sputum, Induced/Lukens Gram Stain - Final 01/07/25 Unknown Sputum, Induced/Lukens Respiratory Culture - Final Presumptive C albicans 01/07/25 18:45 Urine Catheter - Brady Legionella Antigen - Final 01/07/25 18:45 Urine Catheter - Brady Streptococcus pneumoniae Antigen (M - Final 01/07/25 16:30 Nasal Secretion MRSA (PCR) - Final 01/07/25 09:32 Mucosa - Nasopharyngeal Respiratory Panel (PCR) - Final 01/06/25 22:15 Nasal Secretion MRSA (PCR) - Final Rhythm Strip Rhythm Strip: Sinus Tach Rate: 105 Physical Exam Narrative Seen and examined. Patient has right subclavian tunnel dialysis catheter. Blood pressure is high. Improved to 140/92 to 163/81. The patient was extubated on 01/13/2025. Patient had right IJ temporary dialysis catheter inserted and dialysis initiated 01/11. No good flow on the catheter therefore pulled out. Physical exam: General: Awake, alert and confused with time but oriented to place and person HEENT: Atraumatic, Normocephalic. Seated Oral: Oral mucosa dry. N.p.o. Neck: Supple, No JVD, Negative Carotid Bruits. Right IJ dialysis catheter Chest wall/Lungs: Right subclavian tunneled dialysis catheter. Air entry diminished in bilateral lung bases. Mild coarse transmitted sounds Cardiovascular: Sinus rhythm, soft heart sound, no M/G/R Abdomen: Bowel Sounds sluggish, Soft, Non Tender, Non-Distended : Oliguria Brady catheter, oliguria no renal angle tenderness. No suprapubic tenderness. Extremities: No edema, Capillary Refill Less than 3 Seconds. Left BKA. Extremities pale Skin: Multiple scabs in lower extremities Musculoskeletal: No Tenderness to Palpation of Joints or Extremities Neurological: No obvious lateralizing neurological sign, detailed neuroexam not done Psych/Mental Status: Quite. Behavior more organized Assessment & Plan Assessment/Plan (1) Acute hypoxic respiratory failure: (2) DKA (diabetic ketoacidoses): QUALIFIERS: Diabetes mellitus type: type 1 Diabetes mellitus complication detail: with coma Qualified Code(s): E10.11 - Type 1 diabetes mellitus with ketoacidosis with coma PLAN: Plan Patient is a 49-year-old male who presented to [facility] ED on 01/06/2025 with altered mental status and hyperglycemia. 1. DKA with persistent anion gap metabolic acidosis, poorly controlled type 1 diabetes mellitus with diabetic neuropathy ? Follows with Dr. Naik in the office and has had poor compliance with insulin pump noted. A1c 10.7% on admit, similar to last office A1c. Labs on admit consistent with DKA. Initial ABG with pH 6.93, pCO2 15, blood glucose 788 and bicarb on BMP was less than 5. Had good improvement on ABG initially with treatment with insulin drip. 01/12: Beta-hydroxybutyrate 0.3 in normal range. AG 17, bicarb 19, K2.7. In the interim, insulin drip was changed to intermittent subcu glargine and lispro insulin 01/14: Electrolytes potassium, sodium and chloride normal. Bicarb low, anion gap 17. Magnesium 1.4. Phosphorus 3.4. 01/15:: peace officer shows still sinus tachycardia and PVCs. Electrolytes shows bicarb 12.6. Leukocytosis 16.1 K. Still n.p.o. undergoing evaluation by speech therapist. Transfer to PCU. 01/16: Heart rate controlled. Blood pressure high. Chlorthalidone started 2. Acute hypoxic respiratory failure ? Tariff Supervisor following. Had worsening oxygen requirements on admit and chest x-ray showed severe bilateral pulmonary infiltrates. Intubated on morning of 01/07. Per internet e commerce specialist, differential diagnosis includes pulmonary edema, aspiration event and ARDS. BNP elevated to 4000 but lower clinical suspicion for heart failure; echo with normal EF and no concerning findings. SBT completed on morning of 01/10 and unfortunately patient failed with concern for an aspiration event. Had bilious contents suctioned from ET tube and was suspected this may be due to gastroparesis from poorly controlled diabetes as above. Treating with Reglan as above. Continue to treat with IV cefepime and scheduled DuoNebs. Oxygen requirements remain low but patient with significant agitation with spontaneous awakening trials. Ventilator management and further recommendations per internet e commerce specialist. 01/12: Still intubated. Continue IV cefepime, scheduled DuoNeb. 01/13: Patient was extubated on 01/13. He is in delirium with hyperactive, inattention and delirium advised low-dose Precedex drip 01/14: On 4 L of oxygen 01/16 currently on 2 L of oxygen. 01/17: On 2 L of oxygen. BP 164/105. Heart rate 89/min. Oropharyngeal dysphagia and aspiration. Currently NPO. Discussed with the speech therapist. Plan for MBS tomorrow. 01/18: Pulse ox 94% on room air. Hypoxia resolved. 01/19: Patient blood pressure is still elevated 163/81 although better than yesterday. Heart rate 106. Discussed with the waiter/waitress counter. Losartan 50 mg daily and metoprolol succinate 25 mg daily started. 3. Acute metabolic encephalopathy ? Tariff Supervisor following as above. Presumed multifactorial from DKA with severe metabolic acidosis as well as respiratory failure. Remains intubated and sedated at this time. Has nonpurposeful movements but not following commands. Monitor. 01/14: Delirious. On Precedex drip. 01/15: Patient follows simple command. Feels hungry. Delirium has resolved. Off Precedex drip 01/16: Patient is behaving more organized. 01/18: Intermittent encephalopathy related to anesthesia 01/19: Sometimes he gets confused with the time 4. Severe DIYA ? Nephrology following. Likely secondary to ATN primarily due to hypotension in setting of DKA with volume depletion. Baseline creatinine around 0.9. Creatinine 2.5 on admission. Significantly worsened initially and patient was anuric. However, with IV albumin and high-dose diuretics patient began to have significant urine output on 01/08. Unfortunately, creatinine only improved slightly and then has since been steadily worsening with minimal urine output. Most recent creatinine 6.15 on 01/11. Shop Teacher made decision for dialysis. Tariff Supervisor placed temporary HD line on 01/11 and plan is for dialysis to be initiated later this evening. Appreciate further nephrology recommendations. 01/12: Undergoing hemodialysis. 01/13: Still oliguric. On hemodialysis. 01/14: Dialysis as per waiter/waitress counter recommendation 01/16: Plan for dialysis today 01/17: Right IJ dialysis catheter pulled out. Discussed with the surgeon and she said for tunnel cystoscopy tomorrow probably on left IJ. 01/18: Patient getting hemodialysis through right subclavian tunneled dialysis catheter. As per charting patient denied 100 mL urine output in last 24 hours 01/19: Hypokalemia, potassium replacement ordered. Check potassium and magnesium at 8 PM today. Discussed with the waiter/waitress counter. 5. Acute on chronic anemia and thrombocytopenia since admission, ? Hemoglobin 12.9 on admit, baseline appears to be around 13-14. Hemoglobin downtrending during hospitalization but this was thought to be secondary to hemodilution from severe volume overload. Had one hemoglobin read of 8.4 on morning of 01/09; however hemoglobin was up to 10 on afternoon of 01/09 and has remained stable. No dark or bloody bowel movements noted. Will continue IV PPI twice daily for now. Monitor daily CBC. Will hold off on GI consult at this time. 01/12: Patient platelet count steadily decreased from 250K in July 08-158 on 01/07/2025, trough 52 on 01/09. Since that had slight recovery 01/18: Patient hemoglobin 7.6 dropped from 9.0. Ferritin 298, serum iron, TIBC and unsaturated IBC low but iron saturation normal. Most likely due to DIYA on CKD. IV iron ordered 6. Hyponatremia, resolved ? Sodium 122 on admit, corrected sodium 133 in setting of severe hyperglycemia. Resolved with IV fluids on admission. 7. Acute on chronic debility with history of left BKA ? PT/OT/case management following. Appreciate therapy recommendations. 8. Hypertension: Blood pressure has been in the 150s sometimes goes high 170. Amlodipine 10 mg daily started. Hydralazine p.o. scheduled and IV as needed for SBP more than 160 mmHg ordered. MORGAN/ARB are contraindicated. Chronic medical conditions: ? Class II obesity: BMI 37 on admit. Complicates hospital course, care and prognosis. ? History of PAD, hypertension, hyperlipidemia: Holding home amlodipine, lisinopril and statin. ? GERD: Treating with IV PPI twice daily as above. ? Hypothyroidism: Continue home Synthroid. DVT prophylaxis: Heparin subcut CODE STATUS: Full code, unverified Charges/Coding Visit Charges Inpatient E&M: 52502 Subs Hosp L2
[2025-01-19] MEDS: Metoprolol(XL)Succ 25 MG Tablet PO (15:46)
--- NOTE | 2025-01-19 16:46 | CASEMGMT ---
MATT MADISON updated by DC system planning engineer that [facility] is requesting HD at [place] and MWF schedule. MATT MADISON called [facility] and they do have availability for MWF schedule and requested intake be notified to push clinical information. MATT MADISON updated FOC in [facility] and called Ju at Intake to updated regarding facility change. MATT MADISON received call back from [place] and they are able to take patient with scheduled time of MWF [phone] with start of care planned for Thursday01/23/25. MATT MADISON updated DC system planning engineer to updated [facility].
[2025-01-19 21:08] LABS: Potassium 3.2 mmol/L (3.3-5.1)
[2025-01-19 21:15] LABS: Magnesium 1.6 mg/dL (1.5-2.2)
[2025-01-19] MEDS: Polyethylene Glycol 3350 17 GM PACKET PO (21:59)
[2025-01-20] VITALS (20 sets, daily range): BP systolic 129–166; BP diastolic 77–108; PULSE 83–96; RESP 16–18; TEMP 36.1–37.1; O2SAT 96–100; BMI 23.1; BMI 24.3; BMI 25.4
[2025-01-20] MEDS: Magnesium Sulfate 2 GM in Dextrose 5%-Water (100mL Bag) 100 ML IV (00:18)
[2025-01-20] MEDS: Insulin Glargine-YFGN 100 UNIT/ML Pen 10 UNIT SC ×2 (00:18→09:34)
[2025-01-20] MEDS: Potassium Chloride Oral Soln 20 MEQ/15 ML UDC 60 MEQ PO (00:18)
[2025-01-20 04:33] LABS: Hematocrit 23.2 % (40-54); Hemoglobin 7.8 g/dL (13.0-16.5); Immature Granulocytes Count 0.040 X10^3/uL (0.0-0.0); Mean Corp Hgb Conc 33.6 g/dL (32-36); Mean Corpuscular Volume 85.0 fL (80-94); Mean Platelet Vol. 10.8 fl (6.2-12.0); NRBC Flagged by Analyzer 0 % (0-5); Platelet Count 223 K/mm3 (150-450); RBC Distribution Width CV 15.3 % (11.6-14.6); RBC Distribution Width SD 46.6 fl (35.1-43.9); Red Blood Count 2.73 M/mm3 (4.6-6.2); White Blood Count 8.9 K/mm3 (4.4-11.0)
[2025-01-20 04:50] LABS: Anion Gap 13 (5-15); BUN 35 mg/dL (4-19); BUN/Creat Ratio 9.2 RATIO (10-20); Calcium,Total 9.0 mg/dL (7.6-11.0); Carbon Dioxide 19.8 mmol/L (21.0-32.0); Chloride 107 mmol/L (98-108); Estimated Creatinine Clearance 23.76 ml/min (50-250); Glucose 250 mg/dL (70-99); Potassium 3.7 mmol/L (3.3-5.1)
[2025-01-20] MEDS: Senna/Docusate Sodium 1 Tablet 2 TABLET PO ×2 (09:31→20:49)
[2025-01-20] MEDS: Polyethylene Glycol 3350 17 GM PACKET PO ×2 (09:32→20:49)
[2025-01-20] MEDS: Metoprolol(XL)Succ 25 MG Tablet PO (09:37)
[2025-01-20] MEDS: 0.9% Saline Lock 10 ML Syringe IV ×4 (11:44→20:52)
--- NOTE | 2025-01-20 12:40 | PCM.PN.HOSP ---
Reason for Visit Reason for Visit: Diagnoses Type 1 diabetes mellitus with ketoacidosis with coma (01/06/25) Type 2 diabetes mellitus with ketoacidosis without coma (01/06/25) Acute respiratory failure with hypoxia (01/06/25) Acute kidney failure, unspecified (01/06/25) Altered mental status, unspecified (01/06/25) Objective Data Objective Data Vital Signs: Vital Signs Temp Pulse Resp BP Pulse Ox O2 Del Method O2 Flow Rate 96.9 F L 91 18 151/79 H 99 Room Air 2 01/20/25 11:55 01/20/25 11:55 01/20/25 11:55 01/20/25 11:55 01/20/25 11:55 01/20/25 11:55 01/18/25 08:41 FiO2 30 01/18/25 08:41 Oxygen Flow Rate (L/min) 2 Oxygen Delivery Method Room Air Weight: 162 lb 0.636 oz Body Mass Index (BMI) 23.1 Intake & Output: Intake and Output for Last 24 Hours 01/18/25 01/19/25 01/20/25 23:59 23:59 23:59 Intake Total 935 / 935 1105 / 1105 464 / 464 Output Total 2787 / 2787 1000 / 1350 1200 / 1200 Balance -1852 / -1852 105 / -245 -736 / -736 Lab / Micro Data 01/20/25 04:10 01/20/25 04:10 Labs: Laboratory Results - last 24 hr 01/19/25 16:38: POC Glucose 333 H 01/19/25 20:34: Potassium 3.2 L, Magnesium 1.6 01/20/25 00:14: POC Glucose 323 H 01/20/25 04:10: WBC 8.9, RBC 2.73 L, Hgb 7.8 L, Hct 23.2 L, MCV 85.0, MCH 28.6, MCHC 33.6, RDW Std Deviation 46.6 H, RDW Coeff of Candace 15.3 H, Plt Count 223, MPV 10.8, Immature Gran % (Auto) 0.400, Neut % (Auto) 68.4, Lymph % (Auto) 16.8 L, [place] % (Auto) 10.1 H, Eos % (Auto) 3.3, Baso % (Auto) 1.0, Absolute Neuts (auto) 6.1, Absolute Lymphs (auto) 1.50, Nucleated RBC % 0, Sodium 139, Potassium 3.7, Chloride 107, Carbon Dioxide 19.8 L, Anion Gap 13, BUN 35 H, Creatinine 3.84 H, Estim Creat Clear Calc 23.76 L, Est GFR (MDRD) Non-Af 18 L, BUN/Creatinine Ratio 9.2 L, Glucose 250 H, Calcium 9.0 01/20/25 06:43: POC Glucose 203 H 01/20/25 11:42: POC Glucose 272 H Micro: Microbiology 01/15/25 11:35 Blood Culture (Wb) - Right Wrist Blood Culture - Preliminary No growth in 48 hours. 01/15/25 11:30 Blood Culture (Wb) - Pic Blood Culture - Preliminary No growth in 48 hours. 01/06/25 16:28 Blood Culture (Wb) - Anticubital Left Blood Culture - Final No growth in 5 days. 01/06/25 16:41 Blood Culture (Wb) - Right Hand Blood Culture - Final No growth in 5 days. 01/07/25 Unknown Sputum, Induced/Lukens Gram Stain - Final 01/07/25 Unknown Sputum, Induced/Lukens Respiratory Culture - Final Presumptive C albicans 01/07/25 18:45 Urine Catheter - Brady Legionella Antigen - Final 01/07/25 18:45 Urine Catheter - Brady Streptococcus pneumoniae Antigen (M - Final 01/07/25 16:30 Nasal Secretion MRSA (PCR) - Final 01/07/25 09:32 Mucosa - Nasopharyngeal Respiratory Panel (PCR) - Final 01/06/25 22:15 Nasal Secretion MRSA (PCR) - Final Rhythm Strip Rhythm Strip: Sinus Tach Rate: 105 Physical Exam Narrative Seen and examined. Patient has right subclavian tunnel dialysis catheter. Blood pressure is high. Improved to 140/92 to 163/81. The patient was extubated on 01/13/2025. Patient had right IJ temporary dialysis catheter inserted and dialysis initiated 01/11. No good flow on the catheter therefore pulled out. Physical exam: General: Awake, alert and confused with time but oriented to place and person HEENT: Atraumatic, Normocephalic. Seated Oral: Oral mucosa dry. N.p.o. Neck: Supple, No JVD, Negative Carotid Bruits. Right IJ dialysis catheter Chest wall/Lungs: Right subclavian tunneled dialysis catheter. Air entry diminished in bilateral lung bases. Mild coarse transmitted sounds Cardiovascular: Sinus rhythm, soft heart sound, no M/G/R Abdomen: Bowel Sounds sluggish, Soft, Non Tender, Non-Distended : Oliguria Brady catheter, oliguria no renal angle tenderness. No suprapubic tenderness. Extremities: No edema, Capillary Refill Less than 3 Seconds. Left BKA. Extremities pale Skin: Multiple scabs in lower extremities Musculoskeletal: No Tenderness to Palpation of Joints or Extremities Neurological: No obvious lateralizing neurological sign, detailed neuroexam not done Psych/Mental Status: Quite. Behavior more organized Assessment & Plan Assessment/Plan (1) Acute hypoxic respiratory failure: (2) DKA (diabetic ketoacidoses): QUALIFIERS: Diabetes mellitus type: type 1 Diabetes mellitus complication detail: with coma Qualified Code(s): E10.11 - Type 1 diabetes mellitus with ketoacidosis with coma PLAN: Plan Patient is a 49-year-old male who presented to [facility] ED on 01/06/2025 with altered mental status and hyperglycemia. 1. DKA with persistent anion gap metabolic acidosis, poorly controlled type 1 diabetes mellitus with diabetic neuropathy ? Follows with Dr. Naik in the office and has had poor compliance with insulin pump noted. A1c 10.7% on admit, similar to last office A1c. Labs on admit consistent with DKA. Initial ABG with pH 6.93, pCO2 15, blood glucose 788 and bicarb on BMP was less than 5. Had good improvement on ABG initially with treatment with insulin drip. 01/12: Beta-hydroxybutyrate 0.3 in normal range. AG 17, bicarb 19, K2.7. In the interim, insulin drip was changed to intermittent subcu glargine and lispro insulin 01/14: Electrolytes potassium, sodium and chloride normal. Bicarb low, anion gap 17. Magnesium 1.4. Phosphorus 3.4. 01/15:: lunchroom monitor shows still sinus tachycardia and PVCs. Electrolytes shows bicarb 12.6. Leukocytosis 16.1 K. Still n.p.o. undergoing evaluation by speech therapist. Transfer to PCU. 01/20: Glucose about 250-300. Humalog and Lantus dose increased. Patient appetite and oral intake has increased. 2. Acute hypoxic respiratory failure ? Publication Distributor following. Had worsening oxygen requirements on admit and chest x-ray showed severe bilateral pulmonary infiltrates. Intubated on morning of 01/07. Per electrical instrument repairer, differential diagnosis includes pulmonary edema, aspiration event and ARDS. BNP elevated to 4000 but lower clinical suspicion for heart failure; echo with normal EF and no concerning findings. SBT completed on morning of 01/10 and unfortunately patient failed with concern for an aspiration event. Had bilious contents suctioned from ET tube and was suspected this may be due to gastroparesis from poorly controlled diabetes as above. Treating with Reglan as above. Continue to treat with IV cefepime and scheduled DuoNebs. Oxygen requirements remain low but patient with significant agitation with spontaneous awakening trials. Ventilator management and further recommendations per electrical instrument repairer. 01/12: Still intubated. Continue IV cefepime, scheduled DuoNeb. 01/13: Patient was extubated on 01/13. He is in delirium with hyperactive, inattention and delirium advised low-dose Precedex drip 01/14: On 4 L of oxygen 01/16 currently on 2 L of oxygen. 01/17: On 2 L of oxygen. BP 164/105. Heart rate 89/min. Oropharyngeal dysphagia and aspiration. Currently NPO. Discussed with the speech therapist. Plan for MBS tomorrow. 01/18: Pulse ox 94% on room air. Hypoxia resolved. 01/19: Patient blood pressure is still elevated 163/81 although better than yesterday. Heart rate 106. Discussed with the water filtration technician. Losartan 50 mg daily and metoprolol succinate 25 mg daily started. 01/20: Blood pressure profile is better. Systolic in 150s. Chlorthalidone discontinued as not going to be effective with ESRD. Hydralazine oral dose increased to 50 mg 3 times daily. Rest as mentioned above 3. Acute metabolic encephalopathy ? Publication Distributor following as above. Presumed multifactorial from DKA with severe metabolic acidosis as well as respiratory failure. Remains intubated and sedated at this time. Has nonpurposeful movements but not following commands. Monitor. 01/14: Delirious. On Precedex drip. 01/15: Patient follows simple command. Feels hungry. Delirium has resolved. Off Precedex drip 01/16: Patient is behaving more organized. 01/18: Intermittent encephalopathy related to anesthesia 01/19: Sometimes he gets confused with the time 4. Severe DIYA ? Nephrology following. Likely secondary to ATN primarily due to hypotension in setting of DKA with volume depletion. Baseline creatinine around 0.9. Creatinine 2.5 on admission. Significantly worsened initially and patient was anuric. However, with IV albumin and high-dose diuretics patient began to have significant urine output on 01/08. Unfortunately, creatinine only improved slightly and then has since been steadily worsening with minimal urine output. Most recent creatinine 6.15 on 01/11. Liquefied Natural Gas Operator made decision for dialysis. Publication Distributor placed temporary HD line on 01/11 and plan is for dialysis to be initiated later this evening. Appreciate further nephrology recommendations. 01/12: Undergoing hemodialysis. 01/13: Still oliguric. On hemodialysis. 01/14: Dialysis as per water filtration technician recommendation 01/16: Plan for dialysis today 01/17: Right IJ dialysis catheter pulled out. Discussed with the surgeon and she said for tunnel cystoscopy tomorrow probably on left IJ. 01/18: Patient getting hemodialysis through right subclavian tunneled dialysis catheter. As per charting patient denied 100 mL urine output in last 24 hours 01/19: Hypokalemia, potassium replacement ordered. Check potassium and magnesium at 8 PM today. Discussed with the water filtration technician. 01/20: Patient supposed to have short session of dialysis today. Dialysis schedule changed to Thursday and Thursday. 5. Acute on chronic anemia and thrombocytopenia since admission, ? Hemoglobin 12.9 on admit, baseline appears to be around 13-14. Hemoglobin downtrending during hospitalization but this was thought to be secondary to hemodilution from severe volume overload. Had one hemoglobin read of 8.4 on morning of 01/09; however hemoglobin was up to 10 on afternoon of 01/09 and has remained stable. No dark or bloody bowel movements noted. Will continue IV PPI twice daily for now. Monitor daily CBC. Will hold off on GI consult at this time. 01/12: Patient platelet count steadily decreased from 250K in July 08-158 on 01/07/2025, trough 52 on 01/09. Since that had slight recovery 01/18: Patient hemoglobin 7.6 dropped from 9.0. Ferritin 298, serum iron, TIBC and unsaturated IBC low but iron saturation normal. Most likely due to DIYA on CKD. IV iron ordered 6. Hyponatremia, resolved ? Sodium 122 on admit, corrected sodium 133 in setting of severe hyperglycemia. Resolved with IV fluids on admission. 7. Acute on chronic debility with history of left BKA ? PT/OT/case management following. Appreciate therapy recommendations. 8. Hypertension: Blood pressure has been in the 150s sometimes goes high 170. Amlodipine 10 mg daily started. Hydralazine p.o. scheduled and IV as needed for SBP more than 160 mmHg ordered. MORGAN/ARB are contraindicated. /: BP is improved in the 150s. Chlorthalidone discontinued. Hydralazine dose increased to 50 mg 3 times daily. Amlodipine and losartan to continue. Chronic medical conditions: ? Class II obesity: BMI 37 on admit. Complicates hospital course, care and prognosis. ? History of PAD, hypertension, hyperlipidemia: Holding home amlodipine, lisinopril and statin. ? GERD: Treating with IV PPI twice daily as above. ? Hypothyroidism: Continue home Synthroid. DVT prophylaxis: Heparin subcut CODE STATUS: Full code, unverified Charges/Coding Visit Charges Inpatient E&M: 09643 Subs Hosp L2
[2025-01-20] MEDS: Cefepime HCl 0.5 GM in 0.9% Normal Saline (50mL Bag) 50 ML IV (18:18)
[2025-01-20] MEDS: 0.9% Normal Saline 1,000 ML IV.SOLN. 1000 ML OPERA.SITE (18:40)
[2025-01-20] MEDS: PureFlow B 3K Dialysis Soln 1 BAG 6 BAG PF (18:41)
[2025-01-21] VITALS (9 sets, daily range): BP systolic 116–159; BP diastolic 66–96; PULSE 83–100; RESP 16–18; TEMP 35.6–37.6; O2SAT 97–100; BMI 24.6
[2025-01-21 06:37] LABS: Hematocrit 24.6 % (40-54); Hemoglobin 8.1 g/dL (13.0-16.5); Immature Granulocytes Count 0.050 X10^3/uL (0.0-0.0); Mean Corp Hgb Conc 32.9 g/dL (32-36); Mean Corpuscular Volume 86.3 fL (80-94); Mean Platelet Vol. 10.8 fl (6.2-12.0); NRBC Flagged by Analyzer 0 % (0-5); Platelet Count 226 K/mm3 (150-450); RBC Distribution Width CV 15.2 % (11.6-14.6); RBC Distribution Width SD 46.6 fl (35.1-43.9); Red Blood Count 2.85 M/mm3 (4.6-6.2); White Blood Count 8.8 K/mm3 (4.4-11.0)
[2025-01-21 07:16] LABS: Anion Gap 11 (5-15); BUN 18 mg/dL (4-19); BUN/Creat Ratio 7.8 RATIO (10-20); Calcium,Total 8.8 mg/dL (7.6-11.0); Carbon Dioxide 23.3 mmol/L (21.0-32.0); Chloride 103 mmol/L (98-108); Estimated Creatinine Clearance 40.20 ml/min (50-250); Glucose 204 mg/dL (70-99); Potassium 3.5 mmol/L (3.3-5.1)
[2025-01-21] MEDS: Metoprolol(XL)Succ 25 MG Tablet PO (09:10)
[2025-01-21] MEDS: 0.9% Saline Lock 10 ML Syringe IV ×5 (09:11→20:55)
[2025-01-21] MEDS: Insulin Glargine-YFGN 100 UNIT/ML Pen 15 UNIT SC (09:11)
[2025-01-21] MEDS: Cefepime HCl 0.5 GM in 0.9% Normal Saline (50mL Bag) 50 ML IV (10:58)
--- NOTE | 2025-01-21 11:34 | PN.HOSP_ITS ---
Reason for Visit Reason for Visit: Diagnoses Type 1 diabetes mellitus with ketoacidosis with coma (01/06/25) Type 2 diabetes mellitus with ketoacidosis without coma (01/06/25) Acute respiratory failure with hypoxia (01/06/25) Acute kidney failure, unspecified (01/06/25) Altered mental status, unspecified (01/06/25) Objective Data Objective Data Vital Signs: Vital Signs Temp Pulse Resp BP Pulse Ox O2 Del Method O2 Flow Rate 97.2 F L 89 18 138/92 H 100 Room Air 2 01/21/25 10:57 01/21/25 10:57 01/21/25 10:57 01/21/25 10:57 01/21/25 10:57 01/21/25 10:57 01/18/25 08:41 FiO2 30 01/18/25 08:41 Oxygen Flow Rate (L/min) 2 Oxygen Delivery Method Room Air Weight: 172 lb 2.896 oz Body Mass Index (BMI) 24.6 Intake & Output: Intake and Output for Last 24 Hours 01/19/25 01/20/25 01/21/25 23:59 23:59 23:59 Intake Total 1105 / 1105 759 / 1239 720 / 720 Output Total 1000 / 1350 1600 / 2000 700 / 700 Balance 105 / -245 -841 / -761 Lab / Micro Data 01/21/25 05:46 01/21/25 05:46 Labs: Laboratory Results - last 24 hr 01/20/25 11:42: POC Glucose 272 H 01/20/25 17:09: POC Glucose 191 H 01/20/25 21:40: POC Glucose 118 H 01/20/25 23:32: POC Glucose 145 H 01/21/25 05:00: POC Glucose 173 H 01/21/25 05:46: WBC 8.8, RBC 2.85 L, Hgb 8.1 L, Hct 24.6 L, MCV 86.3, MCH 28.4, MCHC 32.9, RDW Std Deviation 46.6 H, RDW Coeff of Candace 15.2 H, Plt Count 226, MPV 10.8, Immature Gran % (Auto) 0.600, Neut % (Auto) 67.1, Lymph % (Auto) 19.3, Coos % (Auto) 7.7, Eos % (Auto) 4.0, Baso % (Auto) 1.3 H, Absolute Neuts (auto) 5.9, Absolute Lymphs (auto) 1.70, Nucleated RBC % 0, Sodium 138, Potassium 3.5, Chloride 103, Carbon Dioxide 23.3, Anion Gap 11, BUN 18, Creatinine 2.27 H, E stim Creat Clear Calc 40.20 L, Est GFR (MDRD) Non-Af 34 L, BUN/Creatinine Ratio 7.8 L, Glucose 204 H, Calcium 8.8 01/21/25 09:05: POC Glucose 211 H Micro: Microbiology 01/15/25 11:30 Blood Culture (Wb) - Pic Blood Culture - Final No growth in 5 days. 01/15/25 11:35 Blood Culture (Wb) - Right Wrist Blood Culture - Final No growth in 5 days. 01/06/25 16:28 Blood Culture (Wb) - Anticubital Left Blood Culture - Final No growth in 5 days. 01/06/25 16:41 Blood Culture (Wb) - Right Hand Blood Culture - Final No growth in 5 days. 01/07/25 Unknown Sputum, Induced/Lukens Gram Stain - Final 01/07/25 Unknown Sputum, Induced/Lukens Respiratory Culture - Final Presumptive C albicans 01/07/25 18:45 Urine Catheter - Brady Legionella Antigen - Final 01/07/25 18:45 Urine Catheter - Brady Streptococcus pneumoniae Antigen (M - Final 01/07/25 16:30 Nasal Secretion MRSA (PCR) - Final 01/07/25 09:32 Mucosa - Nasopharyngeal Respiratory Panel (PCR) - Final 01/06/25 22:15 Nasal Secretion MRSA (PCR) - Final Rhythm Strip Rhythm Strip: Sinus Tach Rate: 105 Physical Exam Narrative Seen and examined. Blood pressure is better. Patient is stated that he needs to go to his home first and has some work regarding selling his house and then go to senior living. Patient has right subclavian tunnel dialysis catheter. Had dialysis through tunneled dialysis catheter on 01/20. The patient was extubated on 01/13/2025. Patient had right IJ temporary dialysis catheter inserted and dialysis initiated 01/11. No good flow on the catheter therefore pulled out. Physical exam: General: Awake, alert and confused with time but oriented to place and person HEENT: Atraumatic, Normocephalic. Seated Oral: Oral mucosa dry. N.p.o. Neck: Supple, No JVD, Negative Carotid Bruits. Right IJ dialysis catheter Chest wall/Lungs: Right subclavian tunneled dialysis catheter. Air entry diminished in bilateral lung bases. Mild coarse transmitted sounds Cardiovascular: Sinus rhythm, soft heart sound, no M/G/R Abdomen: Bowel Sounds sluggish, Soft, Non Tender, Non-Distended : Oliguria Brady catheter, oliguria no renal angle tenderness. No suprapubic tenderness. Extremities: No edema, Capillary Refill Less than 3 Seconds. Left BKA. Extremities pale Skin: Multiple scabs in lower extremities Musculoskeletal: No Tenderness to Palpation of Joints or Extremities Neurological: No obvious lateralizing neurological sign, detailed neuroexam not done Psych/Mental Status: Behavior more organized. Mild cognitive deficit Assessment & Plan Assessment/Plan (1) Acute hypoxic respiratory failure: (2) DKA (diabetic ketoacidoses): QUALIFIERS: Diabetes mellitus type: type 1 Diabetes mellitus complication detail: with coma Qualified Code(s): E10.11 - Type 1 diabetes mellitus with ketoacidosis with coma PLAN: Plan Patient is a 49-year-old male who presented to [facility] ED on 01/06/2025 with altered mental status and hyperglycemia. 1. DKA with persistent anion gap metabolic acidosis, poorly controlled type 1 diabetes mellitus with diabetic neuropathy ? Follows with Dr. Naik in the office and has had poor compliance with insulin pump noted. A1c 10.7% on admit, similar to last office A1c. Labs on admit consistent with DKA. Initial ABG with pH 6.93, pCO2 15, blood glucose 788 and bicarb on BMP was less than 5. Had good improvement on ABG initially with treatment with insulin drip. 01/12: Beta-hydroxybutyrate 0.3 in normal range. AG 17, bicarb 19, K2.7. In the interim, insulin drip was changed to intermittent subcu glargine and lispro insulin 01/14: Electrolytes potassium, sodium and chloride normal. Bicarb low, anion gap 17. Magnesium 1.4. Phosphorus 3.4. 01/15:: engine monitor shows still sinus tachycardia and PVCs. Electrolytes shows bicarb 12.6. Leukocytosis 16.1 K. Still n.p.o. undergoing evaluation by speech therapist. Transfer to PCU. 01/20: Glucose about 250-300. Humalog and Lantus dose increased. Patient appetite and oral intake has increased. 01/21: Glucose is better controlled, 204 BMP. 211 in Accu-Cheks. 2. Acute hypoxic respiratory failure ? Head Turning Machine Operator following. Had worsening oxygen requirements on admit and chest x-ray showed severe bilateral pulmonary infiltrates. Intubated on morning of 01/07. Per name plate stamper, differential diagnosis includes pulmonary edema, aspiration event and ARDS. BNP elevated to 4000 but lower clinical suspicion for heart failure; echo with normal EF and no concerning findings. SBT completed on morning of 01/10 and unfortunately patient failed with concern for an aspiration event. Had bilious contents suctioned from ET tube and was suspected this may be due to gastroparesis from poorly controlled diabetes as above. Treating with Reglan as above. Continue to treat with IV cefepime and scheduled DuoNebs. Oxygen requirements remain low but patient with significant agitation with spontaneous awakening trials. Ventilator management and further recommendations per name plate stamper. 01/12: Still intubated. Continue IV cefepime, scheduled DuoNeb. 01/13: Patient was extubated on 01/13. He is in delirium with hyperactive, inattention and delirium advised low-dose Precedex drip 01/14: On 4 L of oxygen 01/16 currently on 2 L of oxygen. 01/17: On 2 L of oxygen. BP 164/105. Heart rate 89/min. Oropharyngeal dysphagia and aspiration. Currently NPO. Discussed with the speech therapist. Plan for MBS tomorrow. 01/18: Pulse ox 94% on room air. Hypoxia resolved. 01/19: Patient blood pressure is still elevated 163/81 although better than yesterday. Heart rate 106. Discussed with the tool supervisor. Losartan 50 mg daily and metoprolol succinate 25 mg daily started. 01/20: Blood pressure profile is better. Systolic in 150s. Chlorthalidone discontinued as not going to be effective with ESRD. Hydralazine oral dose increased to 50 mg 3 times daily. Rest as mentioned above 01/21: BP 138/92 therefore continue same regimen. Blood pressure is controlled. 3. Acute metabolic encephalopathy ? Head Turning Machine Operator following as above. Presumed multifactorial from DKA with severe metabolic acidosis as well as respiratory failure. Remains intubated and sedated at this time. Has nonpurposeful movements but not following commands. Monitor. 01/14: Delirious. On Precedex drip. 01/15: Patient follows simple command. Feels hungry. Delirium has resolved. Off Precedex drip 01/16: Patient is behaving more organized. 01/18: Intermittent encephalopathy related to anesthesia 01/19: Sometimes he gets confused with the time 4. Severe DIYA ? Nephrology following. Likely secondary to ATN primarily due to hypotension in setting of DKA with volume depletion. Baseline creatinine around 0.9. Creatinine 2.5 on admission. Significantly worsened initially and patient was anuric. However, with IV albumin and high-dose diuretics patient began to have significant urine output on 01/08. Unfortunately, creatinine only improved slightly and then has since been steadily worsening with minimal urine output. Most recent creatinine 6.15 on 01/11. Industrial Waste Treatment Technician made decision for dialysis. Head Turning Machine Operator placed temporary HD line on 01/11 and plan is for dialysis to be initiated later this evening. Appreciate further nephrology recommendations. 01/12: Undergoing hemodialysis. 01/13: Still oliguric. On hemodialysis. 01/14: Dialysis as per tool supervisor recommendation 01/16: Plan for dialysis today 01/17: Right IJ dialysis catheter pulled out. Discussed with the surgeon and she said for tunnel cystoscopy tomorrow probably on left IJ. 01/18: Patient getting hemodialysis through right subclavian tunneled dialysis catheter. As per charting patient denied 100 mL urine output in last 24 hours 01/19: Hypokalemia, potassium replacement ordered. Check potassium and magnesium at 8 PM today. Discussed with the tool supervisor. 01/20: Patient supposed to have short session of dialysis today. Dialysis schedule changed to Thursday and Thursday. 01/21: Magnesium 1.6, oral magnesium placement ordered. Dialysis regimen as mentioned above. 5. Acute on chronic anemia and thrombocytopenia since admission, ? Hemoglobin 12.9 on admit, baseline appears to be around 13-14. Hemoglobin downtrending during hospitalization but this was thought to be secondary to hemodilution from severe volume overload. Had one hemoglobin read of 8.4 on morning of 01/09; however hemoglobin was up to 10 on afternoon of 01/09 and has remained stable. No dark or bloody bowel movements noted. Will continue IV PPI twice daily for now. Monitor daily CBC. Will hold off on GI consult at this time. 01/12: Patient platelet count steadily decreased from 250K in July 08 24-158 on 01/07/2025, trough 52 on 01/09. Since that had slight recovery 01/18: Patient hemoglobin 7.6 dropped from 9.0. Ferritin 298, serum iron, TIBC and unsaturated IBC low but iron saturation normal. Most likely due to DIYA on CKD. IV iron ordered 01/21: H&H 8.1/24.6%. Platelet count 226K. 6. Hyponatremia, resolved ? Sodium 122 on admit, corrected sodium 133 in setting of severe hyperglycemia. Resolved with IV fluids on admission. 7. Acute on chronic debility with history of left BKA ? PT/OT/case management following. Appreciate therapy recommendations. 8. Hypertension: Blood pressure has been in the 150s sometimes goes high 170. Amlodipine 10 mg daily started. Hydralazine p.o. scheduled and IV as needed for SBP more than 160 mmHg ordered. MORGAN/ARB are contraindicated. 01/20: BP is improved in the 150s. Chlorthalidone discontinued. Hydralazine dose increased to 50 mg 3 times daily. Amlodipine and losartan to continue. Chronic medical conditions: ? Class II obesity: BMI 37 on admit. Complicates hospital course, care and prognosis. ? History of PAD, hypertension, hyperlipidemia: Holding home amlodipine, lisinopril and statin. ? GERD: Treating with IV PPI twice daily as above. ? Hypothyroidism: Continue home Synthroid. DVT prophylaxis: Heparin subcut CODE STATUS: Full code, unverified Charges/Coding Visit Charges Inpatient E&M: 54118 Subs Hosp L2
--- NOTE | 2025-01-21 12:21 | CASEMGMT ---
Social Work- SW met with pt per physician request as pt is refusing to discharge to [facility]. Pt reports that he did not agree to [facility] and would like to d/c home, but would consider d/c to [facility]. Pt reports that he is at baseline function. Pt reports that he uses a lift chair at home, wheelchair, and has a shower chair. PT reports that he can shower self, toilet self, and prepare meals. Pt reports that he has an aide, Shiv, from [facility] three days per week for 6.5 hours each day. Pt also reports that he has friends, Kirill and Ashly, that assist pt with laundry, transportation, and random tasks needed. Pt reports that he has a cat that he does not want to give up. Pt reports that he is scared d/t new need for dialysis and acknowledges that he has been lashing out. SW guided pt through processing emotions. Pt reports that he has lived on his own for 5 years and would like to extend that time, while expressing acknowledgment that he realizes that as his health continues to decline, he will need placement. Pt again reports that he would be willing to go to [facility] at that time. Pt insisting that he wants to d/c home today. SW educated that a chair time would need set up, which would likely not be possible today. Pt would be agreeable to [facility] at d/c. BASILIO coordinated with PT/OT, RNCM, charge nurse. SW remains available to follow. VINCENT Garcia
[2025-01-21] MEDS: Polyethylene Glycol 3350 17 GM PACKET PO (20:55)
[2025-01-21] MEDS: Senna/Docusate Sodium 1 Tablet 2 TABLET PO (20:55)
[2025-01-22] VITALS (10 sets, daily range): BP systolic 129–166; BP diastolic 76–90; PULSE 78–96; RESP 16–18; TEMP 36.6–36.9; O2SAT 94–99; BMI 25.2
[2025-01-22] MEDS: 0.9% Saline Lock 10 ML Syringe IV ×8 (00:08→23:48)
[2025-01-22] MEDS: Insulin Glargine-YFGN 100 UNIT/ML Pen 15 UNIT SC ×2 (07:41→21:31)
--- NOTE | 2025-01-22 07:57 | PCM.PN.REN ---
Subjective Subjective Following for dialysis dependent DIYA. Patient complains of back pain. Otherwise he is feeling relatively well. He denies chest pain, dyspnea or nausea. Objective Data Objective Data Vital Signs: Vital Signs Temp Pulse Resp BP Pulse Ox O2 Del Method O2 Flow Rate 98.5 F 90 18 150/84 H 94 Room Air 2 01/22/25 06:00 01/22/25 06:04 01/22/25 06:00 01/22/25 06:00 01/22/25 06:00 01/22/25 07:46 01/18/25 08:41 FiO2 30 01/18/25 08:41 Oxygen Flow Rate (L/min) 2 Oxygen Delivery Method Room Air Weight: 80.1 kg Body Mass Index (BMI) 25.2 Intake & Output: Intake and Output for Last 24 Hours 01/20/25 01/21/25 01/22/25 23:59 23:59 23:59 Intake Total 759 / 1239 893 / 993 100 / 100 Output Total 1600 / 2000 700 / 1150 650 / 650 Balance -841 / -761 193 / -157 -550 / -550 Lab / Micro Data 01/21/25 05:46 01/21/25 05:46 Labs: Laboratory Results - last 24 hr 01/21/25 09:05: POC Glucose 211 H 01/21/25 11:35: POC Glucose 99 01/21/25 17:59: POC Glucose 136 H 01/21/25 20:54: POC Glucose 91 01/22/25 00:16: POC Glucose 180 H Micro: Microbiology 01/15/25 11:30 Blood Culture (Wb) - Pic Blood Culture - Final No growth in 5 days. 01/15/25 11:35 Blood Culture (Wb) - Right Wrist Blood Culture - Final No growth in 5 days. 01/06/25 16:28 Blood Culture (Wb) - Anticubital Left Blood Culture - Final No growth in 5 days. 01/06/25 16:41 Blood Culture (Wb) - Right Hand Blood Culture - Final No growth in 5 days. 01/07/25 Unknown Sputum, Induced/Lukens Gram Stain - Final 01/07/25 Unknown Sputum, Induced/Lukens Respiratory Culture - Final Presumptive C albicans 01/07/25 18:45 Urine Catheter - Brady Legionella Antigen - Final 01/07/25 18:45 Urine Catheter - Brady Streptococcus pneumoniae Antigen (M - Final 01/07/25 16:30 Nasal Secretion MRSA (PCR) - Final 01/07/25 09:32 Mucosa - Nasopharyngeal Respiratory Panel (PCR) - Final 01/06/25 22:15 Nasal Secretion MRSA (PCR) - Final Rhythm Strip Rhythm Strip: Sinus Tach Rate: 105 Physical Exam Narrative alert and oriented, no acute distress S1, S2, RRR Breath sounds clear Abdomen soft, nondistended, positive bowel sounds No edema, left BKA, no edema to thighs Assessment & Plan Assessment/Plan (1) DIYA (acute kidney injury): (2) Acute hypoxic respiratory failure: (3) Altered mental status: PLAN: Plan Assessment/Plan: This is a 49-year-old male with past medical history significant for type 1 diabetes mellitus, hypothyroidism, alcohol use disorder presented to the ER on 01/06/2025 with altered mental status changes, high glucose. Patient was admitted for DKA with severe high anion gap metabolic acidosis, started on insulin drip, received multiple liters of IV fluids. Nephrology is following for DIYA. Acute kidney injury. - Initially anuric DIYA likely secondary to ATN, hypotension, DKA. Patient has normal baseline creatinine. Renal ultrasound without any hydronephrosis. Massive nephrotic range proteinuria, presumably this is related to diabetes (A1C ranging 10-12% April 2023 to present). He had serologies done before which were negative. initially creatinine and urine output was improving, creatinine then started to trend upward/ Urine output dropping off. On 01/11 serum creatinine 6.15. HD initiated 01/11. Patient was last dialyzed on 01/20/2025. There is no need for dialysis today. We are continuing to monitor for renal recovery, but patient will likely need continued dialysis for the next 2 to 4 weeks. Plan on dialyzing patient again tomorrow on 01/23/2025. Will need to check with CM tomorrow to see if he has been set up for outpatient dialysis before discharge.
[2025-01-22] MEDS: Metoprolol(XL)Succ 25 MG Tablet PO (09:45)
[2025-01-22] MEDS: Cefepime HCl 0.5 GM in 0.9% Normal Saline (50mL Bag) 50 ML IV (10:15)
--- NOTE | 2025-01-22 14:24 | PCM.PN.HOSP ---
Reason for Visit Reason for Visit: Diagnoses Type 1 diabetes mellitus with ketoacidosis with coma (01/06/25) Type 2 diabetes mellitus with ketoacidosis without coma (01/06/25) Acute respiratory failure with hypoxia (01/06/25) Acute kidney failure, unspecified (01/06/25) Altered mental status, unspecified (01/06/25) Objective Data Objective Data Vital Signs: Vital Signs Temp Pulse Resp BP Pulse Ox O2 Del Method O2 Flow Rate 98.3 F 90 16 144/86 H 99 Room Air 2 01/22/25 11:30 01/22/25 13:26 01/22/25 11:30 01/22/25 11:30 01/22/25 11:30 01/22/25 11:30 01/18/25 08:41 FiO2 30 01/18/25 08:41 Oxygen Flow Rate (L/min) 2 Oxygen Delivery Method Room Air Weight: 176 lb 9.444 oz Body Mass Index (BMI) 25.2 Intake & Output: Intake and Output for Last 24 Hours 01/20/25 01/21/25 01/22/25 23:59 23:59 23:59 Intake Total 759 / 1239 893 / 993 515 / 515 Output Total 1600 / 2000 700 / 1150 950 / 950 Balance -841 / -761 193 / -157 -435 / -435 Lab / Micro Data 01/21/25 05:46 01/21/25 05:46 Labs: Laboratory Results - last 24 hr 01/21/25 17:59: POC Glucose 136 H 01/21/25 20:54: POC Glucose 91 01/22/25 00:16: POC Glucose 180 H 01/22/25 07:40: POC Glucose 193 H 01/22/25 11:38: POC Glucose 193 H Micro: Microbiology 01/15/25 11:30 Blood Culture (Wb) - Pic Blood Culture - Final No growth in 5 days. 01/15/25 11:35 Blood Culture (Wb) - Right Wrist Blood Culture - Final No growth in 5 days. 01/06/25 16:28 Blood Culture (Wb) - Anticubital Left Blood Culture - Final No growth in 5 days. 01/06/25 16:41 Blood Culture (Wb) - Right Hand Blood Culture - Final No growth in 5 days. 01/07/25 Unknown Sputum, Induced/Lukens Gram Stain - Final 01/07/25 Unknown Sputum, Induced/Lukens Respiratory Culture - Final Presumptive C albicans 01/07/25 18:45 Urine Catheter - Brady Legionella Antigen - Final 01/07/25 18:45 Urine Catheter - Brady Streptococcus pneumoniae Antigen (M - Final 01/07/25 16:30 Nasal Secretion MRSA (PCR) - Final 01/07/25 09:32 Mucosa - Nasopharyngeal Respiratory Panel (PCR) - Final 01/06/25 22:15 Nasal Secretion MRSA (PCR) - Final Rhythm Strip Rhythm Strip: Sinus Tach Rate: 105 Physical Exam Narrative Seen and examined. Patient is urinating about 200 mL 3-4 times a day. Creatinine around 2.25. Blood pressure is better. Patient has right subclavian tunnel dialysis catheter. Had dialysis through tunneled dialysis catheter on 01/20. The patient was extubated on 01/13/2025. Patient had right IJ temporary dialysis catheter inserted and dialysis initiated 01/11. No good flow on the catheter therefore pulled out. Physical exam: General: Awake, alert and oriented to place and time. HEENT: Atraumatic, Normocephalic. Seated Oral: Oral mucosa moist. Neck: Supple, No JVD, Negative Carotid Bruits. Right IJ dialysis catheter Chest wall/Lungs: Right subclavian tunneled dialysis catheter. Air entry diminished in bilateral lung bases. Lungs clear Cardiovascular: Sinus rhythm, soft heart sound, no M/G/R Abdomen: Bowel Sounds sluggish, Soft, Non Tender, Non-Distended : Oliguria Brady catheter, oliguria no renal angle tenderness. No suprapubic tenderness. Extremities: No edema, Capillary Refill Less than 3 Seconds. Left BKA. Extremities pale Skin: Multiple scabs in lower extremities Musculoskeletal: No Tenderness to Palpation of Joints or Extremities Neurological: No obvious lateralizing neurological sign, detailed neuroexam not done Psych/Mental Status: Behavior more organized. Mild cognitive deficit Assessment & Plan Assessment/Plan (1) Acute hypoxic respiratory failure: (2) DKA (diabetic ketoacidoses): QUALIFIERS: Diabetes mellitus type: type 1 Diabetes mellitus complication detail: with coma Qualified Code(s): E10.11 - Type 1 diabetes mellitus with ketoacidosis with coma PLAN: Plan Patient is a 49-year-old male who presented to [facility] ED on 01/06/2025 with altered mental status and hyperglycemia. 1. DKA with persistent anion gap metabolic acidosis, poorly controlled type 1 diabetes mellitus with diabetic neuropathy ? Follows with Dr. Naik in the office and has had poor compliance with insulin pump noted. A1c 10.7% on admit, similar to last office A1c. Labs on admit consistent with DKA. Initial ABG with pH 6.93, pCO2 15, blood glucose 788 and bicarb on BMP was less than 5. Had good improvement on ABG initially with treatment with insulin drip. 01/12: Beta-hydroxybutyrate 0.3 in normal range. AG 17, bicarb 19, K2.7. In the interim, insulin drip was changed to intermittent subcu glargine and lispro insulin 01/14: Electrolytes potassium, sodium and chloride normal. Bicarb low, anion gap 17. Magnesium 1.4. Phosphorus 3.4. 01/15:: personnel monitor shows still sinus tachycardia and PVCs. Electrolytes shows bicarb 12.6. Leukocytosis 16.1 K. Still n.p.o. undergoing evaluation by speech therapist. Transfer to PCU. 01/20: Glucose about 250-300. Humalog and Lantus dose increased. Patient appetite and oral intake has increased. 01/21: Glucose is better controlled, 204 BMP. 211 in Accu-Cheks. 01/22: Glucoses controlled. Microbiology Past 72 Hours 01/15/25 11:30 Blood Culture (Wb) - Pic Blood Culture - Final No growth in 5 days. 01/15/25 11:35 Blood Culture (Wb) - Right Wrist Blood Culture - Final No growth in 5 days. Laboratory Results 01/21/25 17:59: POC Glucose 136 H 01/21/25 20:54: POC Glucose 91 01/22/25 00:16: POC Glucose 180 H 01/22/25 07:40: POC Glucose 193 H 01/22/25 11:38: POC Glucose 193 H 2. Acute hypoxic respiratory failure ? Call Center Team Leader following. Had worsening oxygen requirements on admit and chest x-ray showed severe bilateral pulmonary infiltrates. Intubated on morning of 01/07. Per senior teradata developer, differential diagnosis includes pulmonary edema, aspiration event and ARDS. BNP elevated to 4000 but lower clinical suspicion for heart failure; echo with normal EF and no concerning findings. SBT completed on morning of 01/10 and unfortunately patient failed with concern for an aspiration event. Had bilious contents suctioned from ET tube and was suspected this may be due to gastroparesis from poorly controlled diabetes as above. Treating with Reglan as above. Continue to treat with IV cefepime and scheduled DuoNebs. Oxygen requirements remain low but patient with significant agitation with spontaneous awakening trials. Ventilator management and further recommendations per senior teradata developer. 01/12: Still intubated. Continue IV cefepime, scheduled DuoNeb. 01/13: Patient was extubated on 01/13. He is in delirium with hyperactive, inattention and delirium advised low-dose Precedex drip 01/14: On 4 L of oxygen 01/16 currently on 2 L of oxygen. 01/17: On 2 L of oxygen. BP 164/105. Heart rate 89/min. Oropharyngeal dysphagia and aspiration. Currently NPO. Discussed with the speech therapist. Plan for MBS tomorrow. 01/18: Pulse ox 94% on room air. Hypoxia resolved. 01/19: Patient blood pressure is still elevated 163/81 although better than yesterday. Heart rate 106. Discussed with the county administrator. Losartan 50 mg daily and metoprolol succinate 25 mg daily started. 01/20: Blood pressure profile is better. Systolic in 150s. Chlorthalidone discontinued as not going to be effective with ESRD. Hydralazine oral dose increased to 50 mg 3 times daily. Rest as mentioned above 01/21: BP 138/92 therefore continue same regimen. Blood pressure is controlled. 3. Acute metabolic encephalopathy ? Call Center Team Leader following as above. Presumed multifactorial from DKA with severe metabolic acidosis as well as respiratory failure. Remains intubated and sedated at this time. Has nonpurposeful movements but not following commands. Monitor. 01/14: Delirious. On Precedex drip. 01/15: Patient follows simple command. Feels hungry. Delirium has resolved. Off Precedex drip 01/16: Patient is behaving more organized. 01/18: Intermittent encephalopathy related to anesthesia 01/19: Sometimes he gets confused with the time 01/22: Patient is oriented with place, time and month. 4. Severe DIYA ? Nephrology following. Likely secondary to ATN primarily due to hypotension in setting of DKA with volume depletion. Baseline creatinine around 0.9. Creatinine 2.5 on admission. Significantly worsened initially and patient was anuric. However, with IV albumin and high-dose diuretics patient began to have significant urine output on 01/08. Unfortunately, creatinine only improved slightly and then has since been steadily worsening with minimal urine output. Most recent creatinine 6.15 on 01/11. Python Web Developer made decision for dialysis. Call Center Team Leader placed temporary HD line on 01/11 and plan is for dialysis to be initiated later this evening. Appreciate further nephrology recommendations. 01/12: Undergoing hemodialysis. 01/13: Still oliguric. On hemodialysis. 01/14: Dialysis as per county administrator recommendation 01/16: Plan for dialysis today 01/17: Right IJ dialysis catheter pulled out. Discussed with the surgeon and she said for tunnel cystoscopy tomorrow probably on left IJ. 01/18: Patient getting hemodialysis through right subclavian tunneled dialysis catheter. As per charting patient denied 100 mL urine output in last 24 hours 01/19: Hypokalemia, potassium replacement ordered. Check potassium and magnesium at 8 PM today. Discussed with the county administrator. 01/20: Patient supposed to have short session of dialysis today. Dialysis schedule changed to Thursday and Thursday. 01/21: Magnesium 1.6, oral magnesium placement ordered. Dialysis regimen as mentioned above. 01/22: Patient is urinating and urine volume has increased. Needs to set up outpatient dialysis and then discharge possible in next 1 to 2 days. 5. Acute on chronic anemia and thrombocytopenia since admission, ? Hemoglobin 12.9 on admit, baseline appears to be around 13-14. Hemoglobin downtrending during hospitalization but this was thought to be secondary to hemodilution from severe volume overload. Had one hemoglobin read of 8.4 on morning of 01/09; however hemoglobin was up to 10 on afternoon of 01/09 and has remained stable. No dark or bloody bowel movements noted. Will continue IV PPI twice daily for now. Monitor daily CBC. Will hold off on GI consult at this time. 01/12: Patient platelet count steadily decreased from 250K in July 08-158 on 01/07/2025, trough 52 on 01/09. Since that had slight recovery 01/18: Patient hemoglobin 7.6 dropped from 9.0. Ferritin 298, serum iron, TIBC and unsaturated IBC low but iron saturation normal. Most likely due to DIYA on CKD. IV iron ordered 01/21: H&H 8.1/24.6%. Platelet count 226K. 6. Hyponatremia, resolved ? Sodium 122 on admit, corrected sodium 133 in setting of severe hyperglycemia. Resolved with IV fluids on admission. 7. Acute on chronic debility with history of left BKA ? PT/OT/case management following. Appreciate therapy recommendations. 8. Hypertension: Blood pressure has been in the 150s sometimes goes high 170. Amlodipine 10 mg daily started. Hydralazine p.o. scheduled and IV as needed for SBP more than 160 mmHg ordered. MORGAN/ARB are contraindicated. 7/4: BP is improved in the 150s. Chlorthalidone discontinued. Hydralazine dose increased to 50 mg 3 times daily. Amlodipine and losartan to continue. Chronic medical conditions: ? Class II obesity: BMI 37 on admit. Complicates hospital course, care and prognosis. ? History of PAD, hypertension, hyperlipidemia: Holding home amlodipine, lisinopril and statin. ? GERD: Treating with IV PPI twice daily as above. ? Hypothyroidism: Continue home Synthroid. DVT prophylaxis: Heparin subcut CODE STATUS: Full code, unverified Charges/Coding Visit Charges Inpatient E&M: 79297 Subs Hosp L2
[2025-01-22] MEDS: Senna/Docusate Sodium 1 Tablet 2 TABLET PO (21:32)
[2025-01-23] VITALS (9 sets, daily range): BP systolic 120–164; BP diastolic 80–102; PULSE 88–103; RESP 12–16; TEMP 36.7–37.1; O2SAT 97–100; BMI 24.7; BMI 24.6
[2025-01-23] MEDS: 0.9% Saline Lock 10 ML Syringe IV ×2 (05:34→11:52)
[2025-01-23 06:14] LABS: Hematocrit 21.6 % (40-54); Hemoglobin 7.2 g/dL (13.0-16.5); Immature Granulocytes Count 0.030 X10^3/uL (0.0-0.0); Mean Corp Hgb Conc 33.3 g/dL (32-36); Mean Corpuscular Volume 88.9 fL (80-94); Mean Platelet Vol. 10.6 fl (6.2-12.0); NRBC Flagged by Analyzer 0 % (0-5); Platelet Count 214 K/mm3 (150-450); RBC Distribution Width CV 15.5 % (11.6-14.6); RBC Distribution Width SD 49.3 fl (35.1-43.9); Red Blood Count 2.43 M/mm3 (4.6-6.2); White Blood Count 7.1 K/mm3 (4.4-11.0)
[2025-01-23 07:08] LABS: Anion Gap 10 (5-15); BUN 35 mg/dL (4-19); BUN/Creat Ratio 14.0 RATIO (10-20); Calcium,Total 8.5 mg/dL (7.6-11.0); Carbon Dioxide 23.8 mmol/L (21.0-32.0); Chloride 101 mmol/L (98-108); Estimated Creatinine Clearance 36.50 ml/min (50-250); Glucose 105 mg/dL (70-99); Potassium 3.5 mmol/L (3.3-5.1)
[2025-01-23] MEDS: Cefepime HCl 0.5 GM in 0.9% Normal Saline (50mL Bag) 50 ML IV (09:01)
[2025-01-23] MEDS: Metoprolol(XL)Succ 25 MG Tablet PO (09:08)
[2025-01-23] MEDS: Insulin Glargine-YFGN 100 UNIT/ML Pen 15 UNIT SC (09:09)
--- NOTE | 2025-01-23 09:30 | NURSING ---
Dialysis Coordinator & grain elevator worker discussed HD treatment plan. Pt last received HD on 01/20/25. Pt showing some signs of kidney function recovery. Will hold off on HD today per grain elevator worker & re-evaluate on 01/24, unless pt discharges.
--- NOTE | 2025-01-23 09:38 | CASEMGMT ---
Discharge Planning Jake has obtained auth to admit. SW updated. Siobhan Song DC Planning Asst.
--- NOTE | 2025-01-23 09:39 | NURSING ---
Instructional Materials Director updated that pt will d/c to [facility] today w/ a current outpatient HD schedule of MWF at [facility]. Although, patient starting to show some signs of possible recovery, we will be unable to monitor function tomorrow. Dr. Lopez gave inpatient HD orders for today & plan on outpatient HD on 01/25.
[2025-01-23] MEDS: 0.9% Normal Saline 1,000 ML IV.SOLN. 1000 ML OPERA.SITE (10:20)
[2025-01-23] MEDS: PureFlow B 3K Dialysis Soln 1 BAG 6 BAG PF (10:20)
--- NOTE | 2025-01-23 10:50 | ST.MBS ---
Modified Barium Swallow Patient Information Study Date: 01/23/25 Study Time: 13:30 Diagnosis: Acute hypoxic respiratory failure J96.01 Referring Physician: Shen Reza Reason for Referral: Assess swallow function, assess risk for aspiration, and determine recommendations for least restrictive diet textures and compensatory strategies to improve safety of swallow. Medical History: Patient is a 49-year-old male who presented to [facility] ED on 01/06/2025 with altered mental status and hyperglycemia, admitted for management of DKA & acute hypoxic respiratory failure. Pt was intubated 01/07/25 am and was extubated 01/13/25 am. MATT Diaz reports that he failed the RN dysphagia screening w/ coughing/choking on a single sip of water. Pt was medicated earlier d/t agitation for receipt of dialysis per nursing. BSE recommended NPO. Pt's mentation has somewhat improved since BSE, and pt consumed serving of applesauce w/ BANANA GRADER today at bedside. Pt continues coughing w/ trials of liquids. He was recommended for MBSS to consider him for diet advancement and further assess swallow function and aspiration risk. MBSS 01/17/2025 revealed moderate-severe oropharyngeal dysphagia w/ silent aspiration of thin liquids, as well as aspiration of mildly thick liquids and suspicion for aspiration of pudding residues after the swallow. He was recommended for puree textures / moderately thick liquids by tsp only w/ total feed by staff. He is now direct supervision, not requiring total feed. He has been tolerating diet well, participates in some oropharyngeal strengthening, and has been recommended for repeat MBSS. 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 Tobacco use disorder Polyneuropathy due to type 1 diabetes mellitus Wound discharge MRSA infection Marijuana use Open wound Thyroid disease Insulin dependent diabetes mellitus Arthritis Uses wheelchair Bladder disease Injury of back Difficulty chewing Dietary restriction Amputation of left lower extremity below knee Type 1 diabetes Current use of insulin Back pain due to injury Stroke Restless legs History of stress test Gastroparesis Vision loss of right eye Vision loss of left eye Hearing loss, left Hearing loss, right Anemia Substance abuse Alcohol abuse Anxiety Depression Hypothyroidism Diabetes Chronic pain Rheumatoid arthritis Osteoporosis Pancreatitis GERD (gastroesophageal reflux disease) Hepatitis Smoker Asthma Chest pain Hypertension Migraines Seizures Charcot foot due to diabetes mellitus Charcot ankle Neuropathy Cellulitis (~09/15/21) Diabetes mellitus Current Diet Ordered: Puree / Moderately thick liquids Dentition: Edentulous Mental Status: Impaired (Poor abilities to follow commands and attend to task) Respiratory Status: Oxygenating on Room Air Penetration-Aspiration Scale Penetration-Aspiration Scale: OBJECTIVE ASSESSMENT OF SWALLOW FUNCTION (QUANTITATIVE ? PER TRIAL): PENETRATION / ASPIRATION SCALE (NUR): 1 = does not enter airway 2 = enters airway/above vocal folds/ejected 3 = enters airway/above vocal folds/not ejected 4 = enters airway/contacts vocal folds/ejected 5 = enters airway/contacts vocal folds/not ejected 6 = enters airway/below vocal folds/ejected 7 = enters airway/below vocal folds/not ejected despite effort 8 = enters airway/below vocal folds/no effort VIDEOFLOROSCOPIC SCALE SCORE (NUR): Grade I = aspiration of material that has penetrated into the laryngeal vestibule, intact cough reflex Grade II = aspiration < 10 % of the bolus, intact cough reflex Grade III = aspiration of < 10 % of the bolus, reduced cough reflex or aspiration of > 10 % of the bolus, intact cough reflex Grade IV = aspiration of > 10 % of the bolus, reduced cough reflex Status Active ST Patient: Active Contact Information [facility] Speech Therapy:: Rebecca Benavides M.A. [facility]? Speech-Language Pathologist?? [facility] [address] [place] [address]? [email or web address]?? [phone]
--- NOTE | 2025-01-23 11:05 | CASEMGMT ---
Social Work Physician spoke w/pt, he is now agreeable to [facility]. Pt is getting dialysis today and will go to [facility] after dialysis, as precert was attained. SW will follow up w/pt once the d/c is set up. NOAH Pope
--- NOTE | 2025-01-23 12:59 | TREXTCAR_ITS ---
Diet Diet Order/Speech Therapy: INPATIENT Hospital Diet / Speech Therapy Order(s) 01/18/25 11:29 Diet: Carbohydrate Controlled Food consistency:: Pureed Liquid Consistency:: Honey/Moderately Thick Type of Dietary Supplement:: Magic Cup Dessert Diet Comments: Direct sup by staff, assist as needed, Liquids by tsp only, van/suellen MCw/L&D Routine Orders/Code Status Code Status: Full Code DC O2, CPAP, BIPAP needs Home O2 Discharge instructions: No Wound(s) R leg: Wound Type: scabs/scratches coccyx: Wound Type: Pressure Injury left elbow: Wound Type: Abrasion b/l arms: Wound Type: scabs right upper arm: Wound Type: Puncture RIGHT CHEST: Wound Type: Surgical Incision Therapies Weight Bearing: Weight bearing as tolerated Physical Therapy: Eval and Treat Occupational Therapy: Eval and Treat Speech Therapy: Eval and Treat Problem/Diagnosis (1) Acute hypoxic respiratory failure: Status: Acute Code(s): J96.01 - Acute respiratory failure with hypoxia (2) DKA (diabetic ketoacidoses): Status: Acute Code(s): E11.10 - Type 2 diabetes mellitus with ketoacidosis without coma Plan: Final diagnosis: #1 DKA #2 poorly controlled type 1 diabetes #3 diabetic neuropathy #4 acute hypoxic respiratory failure secondary to aspiration pneumonia #5 oropharyngeal dysphagia with probable aspiration #6 acute kidney injury secondary to ischemic ATN in the setting of DKA and hypotension-requiring hemodialysis #7 chronic debility #8 aspiration pneumonia Allergies/Procedures Done in Hospital Allergies No Known Allergies Allergy (Verified 08/01/24 14:25) Procedures: 2-D Echocardiogram, Dialysis and - (Tunneled dialysis catheter placement) Type of Care/Length of Stay Estimated LOS: Convalescent Care Less Than 30 days Type of Care Needed: Skilled Rehab Potential: Good Prognosis: Good Additional Orders/Day of Discharge H&P will serve as current which was dated: 01/06/25 Day of Discharge: 01/23/25 Dietary and Speech Recommendations Dietitian Recommendations/Changes: Continue Carbohydrate Controlled Diet with texture/consistency per SUGAR CANE FARM MANAGER to manage medical condition. Will keep diet liberalized d/t texture/consistency limitations to diet. Will order vanilla/chocolate Magic Cup BID with meals to provide supplemental e nergy. Discharge Plan Admission Admit Date/Time: 01/06/25 16:37 Primary Reason for Your Visit: DKA, aspiration pneumonia, respiratory failure Attending Provider: Alfonso Monroe Primary Care Provider: Jah Rey Consulting Providers: Xavi Orona; Shen Reza; Shiv Still; Taylor Lopez; Ellyn Haro Discharge Orders/Prescriptions Prescriptions: New amlodipine 10 mg Tablet 10 mg PO DAILY Qty: 0 0RF hydralazine 50 mg Tablet 50 mg PO TID Qty: 0 0RF insulin glargine-yfgn 100 unit/mL (3 mL) Insulin Pen 15 unit subcut BID Qty: 0 0RF losartan 50 mg Tablet 50 mg PO DAILY Qty: 0 0RF pantoprazole 40 mg Tablet,Delayed Release (Dr/Ec) 40 mg PO DAILY Qty: 0 0RF metoprolol succinate 25 mg Tablet Extended Release 24 Hr 25 mg PO DAILY Qty: 0 0RF insulin lispro [Humalog KwikPen Insulin] 100 unit/mL Insulin Pen See Protocol subcut ACHS Qty: 0 0RF Protocol: 3. Sliding Scale Insulin Med Dosing Condition: 150-189 mg/dl = 1 unit Condition: 190-229 mg/dl = 2 units Condition: 230-269 mg/dl = 3 units Condition: 270-309 mg/dl = 4 units Condition: 310-349 mg/dl = 5 units Condition: 350-399 mg/dl = 6 units Condition: 400-449 mg/dl = 7 units Condition: Greater than 449 call physician Protocol Text: Suggested for: - Patients on Total Daily Insulin Dose of 37-55 units - Obese, infected, or steroid patients MEDIUM DOSING ALGORITHIM insulin lispro [Humalog KwikPen Insulin] 100 unit/mL Insulin Pen 8 unit subcut TIDAC Qty: 0 0RF menthol-zinc oxide [Calmoseptine] 0.44-20.6 % Ointment 1 applic topical TID Qty: 0 0RF Protocol: *Topical Application Instructions APPLICATION INSTRUCTIONS: groin/buttocks nicotine [Nicoderm CQ] 14 mg/24 hr patch 24 hour 1 patch transdermal DAILY Qty: 14 0RF sennosides-docusate sodium [Stimulant Laxative Plus] 8.6-50 mg Tablet 2 tab PO BID Qty: 0 0RF Pureflow B 3k Dialysis Soln 6 bag perfusion UD Qty: 0 0RF Continued sertraline [Zoloft] 50 mg tablet 50 mg PO DAILY atorvastatin 20 mg tablet 20 mg PO QHS Qty: 90 1RF amitriptyline 25 mg Tablet 25 mg PO QHS levothyroxine 25 mcg tablet 25 mcg PO DAILY Qty: 90 1RF cholecalciferol (vitamin D3) 125 mcg (5,000 unit) capsule 125 mcg PO QDAY Qty: 90 1RF Discontinued lisinopril 40 mg tablet 40 mg PO QDAY gabapentin 300 MG capsule 300 mg PO 4X/DAY No Action (DME) blood-glucose meter [OneTouch Verio Reflect Meter] Misc See Rx Instructions .Route Qty: 1 0RF Rx Instructions: As directed (DME) OneTouch Verio test strips Strip See Rx Instructions .Route Qty: 100 5RF Rx Instructions: TID (DME) FreeStyle Maikel 2 Plus Sensor Device See Rx Instructions .Route Qty: 2 5RF Rx Instructions: 1 sensors q 15 days pantoprazole 40 MG tablet 40 mg PO DAILY (DME) Omnipod 5 G6 Intro Kit (Gen 5) Cartridge See Rx Instructions .Route Rx Instructions: As directed insulin glargine [Lantus Solostar U-100 Insulin] 100 unit/mL (3 mL) insulin pen 35 unit subcut QHS Qty: 31.5 1RF amlodipine 10 mg tablet 10 mg PO DAILY Qty: 90 1RF insulin lispro [Humalog U-100 Insulin] 100 unit/mL solution 60 unit continuous subcutaneous infusion .continuous Qty: 54 1RF (DME) Omnipod 5 (G6/Maikel 2 Plus) Cartridge See Rx Instructions .Route Qty: 10 3RF Rx Instructions: 1 pod q 3 days Referrals / Follow Up: Jah Rey MD [Primary Care Provider] - Disposition Disposition (needs filled in before D/C Order can be placed): Intermediate Facility (2) DKA (diabetic ketoacidoses) Qualifiers: Diabetes mellitus type: type 1 Diabetes mellitus complication detail: with coma Qualified Code(s): E10.11 - Type 1 diabetes mellitus with ketoacidosis with coma
--- NOTE | 2025-01-23 13:13 | CASEMGMT ---
Social Work Pt asked to speak w/SW. SW met w/pt, he is upset about going to [facility], does not understand why we spoke to his son about going there. SW explained he was confused, but reminded him that SW did speak w/him last week about going to [facility] w/SW and he was agreeable. SW explained that without POA papers, we speak to the next of kin which is his sons. Pt is still agreeable to [facility] but is upset about it. Pt states he just wants to get out of here today. Pt states he will stay at [facility] for just two weeks. He states it was all set up for him to go to [place] and everything changed. SW again explained that he agreed to [facility], he was not set up for [place]. He then states he didn't want to go there as his dad was in [facility] and he called the police on him. SW explained that [facility] is a different facility than [facility]. Pt states he knows but states they use the same transportation. He then states he has been trying to call his friends Kirill and Ashly Workman, SW inquired if he has their number. He states no, he just has been picking up the hospital phone and asking for them, but it's not working. SWexplained he is needing dialysis at present to [facility] will make sure they get him to and from dialysis. Pt says his friends would take him back and forth to dialysis, however again he does not have a number for them. After much discussion pt is still agreeable to [facility] but is not happy about it, he states he wants to go as soon as possible. SW explained will text the physician. SW texted the physician, he is working on the discharge right now. RN then informed SW that pt does not want us to set up transportation, though it is unclear how he would get to the facility. SW will await paperwork, will continue to follow. NOAH Pope
--- NOTE | 2025-01-23 13:17 | DS.PCM_ITS ---
Providers Date of Admission: 01/06/25 Date of Discharge: 01/23/25 Primary Care Physician: Dr. Jah Rey MD Consultations 01/06/25 19:50 Consult: Kidney Puller / Pulmonary Medicine Routine Consulting Provider: Intensivists/Pulmonary Med Reason for Consult: DKA EMERGENT Consult: No Notified: Yes Date Notified: 01/06/25 Time Notified: 20:00 Method of Notification: Text 01/07/25 08:21 Consult: Nephrology Routine Consulting Provider: Taylor Lopez Reason for Consult: DIYA, ANURIA EMERGENT Consult: No Notified: Yes Date Notified: 01/07/25 Time Notified: 08:21 Method of Notification: Verbal 01/07/25 15:18 Consult: Cardiology Routine Consulting Provider: Shiv Still Reason for Consult: pulm. edema, Pulm HTN, EMERGENT Consult: No Notified: Yes Date Notified: 01/07/25 Time Notified: 15:19 Method of Notification: Hospitalist spoke to MD 01/16/25 13:08 Consult: General Surgery Routine Consulting Provider: Ellyn Haro Reason for Consult: DIYA no noted recovery, tunneled HD cathteter EMERGENT Consult: No Notified: Yes Date Notified: 01/16/25 Time Notified: 13:08 Method of Notification: Verbal Reason For Visit: DKA Diagnosis Discharge Diagnosis (1) Acute hypoxic respiratory failure: Status: Inactive Code(s): J96.01 - Acute respiratory failure with hypoxia (2) DKA (diabetic ketoacidoses): Status: Inactive Code(s): E11.10 - Type 2 diabetes mellitus with ketoacidosis without coma Qualifiers: Diabetes mellitus complication detail: with coma Diabetes mellitus type: type 1 Qualified Code(s): E10.11 - Type 1 diabetes mellitus with ketoacidosis with coma Plan: Final diagnosis: #1 DKA #2 poorly controlled type 1 diabetes #3 diabetic neuropathy #4 acute hypoxic respiratory failure secondary to aspiration pneumonia #5 oropharyngeal dysphagia with probable aspiration #6 acute kidney injury secondary to ischemic ATN in the setting of DKA and hypotension-requiring hemodialysis #7 chronic debility #8 aspiration pneumonia Medications at Discharge Home Medications pantoprazole 40 mg tablet,delayed release 40 mg PO DAILY gerd 08/13/20 sertraline 50 mg tablet (Zoloft) 50 mg PO DAILY depression 03/05/22 amitriptyline 25 mg tablet 25 mg PO QHS sleep 06/17/22 insulin glargine 100 unit/mL (3 mL) subcutaneous pen (Lantus Solostar U-100 Insulin) 35 unit (0.35 mL) subcut QHS #31.5 mL 09/23/23 amlodipine 10 mg tablet 10 mg PO DAILY #90 tabs 03/09/24 atorvastatin 20 mg tablet 20 mg PO QHS #90 tabs 05/02/24 blood sugar diagnostic (OneTouch Verio test strips) #100 ea 05/02/24 blood-glucose meter (OneTouch Verio Reflect Meter) #1 ea 05/02/24 levothyroxine 25 mcg tablet 25 mcg PO DAILY thyroid #90 tabs 08/02/24 cholecalciferol (vitamin D3) 125 mcg (5,000 unit) capsule 125 mcg PO QDAY #90 caps 08/31/24 insulin lispro 100 unit/mL subcutaneous solution (Humalog U-100 Insulin) 60 unit (0.6 mL) continuous subcutaneous infusion .continuous #54 mL 09/27/24 insulin pump cart,auto,BT,G6/L (Omnipod 5 (G6/Maikel 2 Plus) subcutaneous cartridge) #10 ea 11/21/24 insulin pump cartridge,automated dose,BT with controller subcutaneous 01/08/25 PureFlow B 3K Dialysis Soln 6 bag perfusion UD ##0 01/23/25 amlodipine 10 mg tablet 10 mg PO DAILY #0 tabs 01/23/25 hydralazine 50 mg tablet 50 mg PO TID #0 tabs 01/23/25 insulin glargine-yfgn 100 unit/mL (3 mL) subcutaneous pen 15 unit (0.15 mL) subcut BID #0 mL 01/23/25 insulin lispro 100 unit/mL subcutaneous pen (Humalog KwikPen (U-100) Insulin) 8 unit (0.08 mL) subcut TIDAC #0 mL 01/23/25 insulin lispro 100 unit/mL subcutaneous pen (Humalog KwikPen (U-100) Insulin) See Protocol subcut ACHS #0 mL 01/23/25 losartan 50 mg tablet 50 mg PO DAILY #0 tabs 01/23/25 menthol 0.44 %-zinc oxide 20.6 % topical ointment (Calmoseptine) 1 applic topical TID #0 grams 01/23/25 metoprolol succinate 25 mg tablet,extended release 24 hr 25 mg PO DAILY #0 tabs 01/23/25 nicotine 14 mg/24 hr daily transdermal patch (Nicoderm CQ) 1 patch transdermal DAILY #14 ea 01/23/25 pantoprazole 40 mg tablet,delayed release 40 mg PO DAILY #0 tabs 01/23/25 sennosides 8.6 mg-docusate sodium 50 mg tablet (Stimulant Laxative Plus) 2 tab PO BID #0 tabs 01/23/25 blood-glucose sensor (FreeStyle Maikel 2 Plus Sensor device) #2 ea 01/26/25 Hospital Course Operations None Procedures 2-D Echocardiogram, Dialysis, Intubation and - (Right IJ tunneled dialysis catheter) Summary of Care Provided Minutes Spent on Discharge: 32 Hospital Course: This 49-year-old white male was seen in the emergency room at [facility] after coming in for evaluation of nausea and vomiting, malaise, altered mental status, and elevated blood sugar. He was brought in by squad from his home. History was limited as the patient was confused, he knew his name and he knew where he was. Patient admits to drinking alcohol on a chronic basis. He is a type I diabetic. Labs were drawn in the emergency room, anion gap was not able to be calculated because it was too high, blood sugar was elevated and patient's white count was elevated. Urinalysis was unremarkable, chest x-ray showed either vascular congestion or pneumonia. Patient initially did not require oxygen but decompensated while in the emergency room and was put on BiPAP, and insulin drip was started and he was given fluids, IV antibiotics were instituted, patient was admitted to ICU. Early the next morning, patient's respiratory status declined and he was intubated, he was seen by critical care and labs were monitored. Patient's creatinine unfortunately continued to elevate and ultimately he was seen in consultation by cardiology regarding possible heart failure and nephrology due to acute kidney injury. Patient's echocardiogram was unremarkable. He was ultimately extubated, patient was seen by PT and OT and ultimately had a tunneled dialysis catheter placed. Patient was felt to need skilled care and he agreed to go to a prison facility. On 01/23/2025, patient was seen and examined: On examination he appeared in no distress. Vital signs as documented. Skin warm and dry and without overt rashes. Neck without JVD, neck was supple, trachea midline, thyroid was normal. Lungs clear bilaterally, normal air movement was noted. Heart exam notable for regular rhythm, normal sounds and absence of murmurs, rubs or gallops. Abdomen unremarkable and without evidence of organomegaly, masses, or abdominal aortic enlargement. Bowel sounds are present, abdomen is not distended. Extremities nonedematous, no cyanosis was noted, no clubbing was noted. Neuro: Cranial nerves II through XII are grossly intact, no focal motor deficits were noted, sensation to light touch and pinprick intact, motor exam 5/5 throughout. Psych: Patient is alert and oriented x3, he does not appear anxious or depressed, he does not appear agitated. Patient was transferred to a prison facility on 01/23/2025 in stable condition. Weight / BMI Weight Weight: 78 kg Body Mass Index (BMI) 24.6 ABG / Lab / Microbiology Data 01/23/25 05:55 01/23/25 05:55 Laboratory: Laboratory Results - last 24 hr 01/22/25 16:42: POC Glucose 60 L 01/22/25 17:23: POC Glucose 47 L 01/22/25 18:03: POC Glucose 141 H 01/22/25 21:30: POC Glucose 285 H 01/22/25 23:46: POC Glucose 294 H 01/23/25 05:55: WBC 7.1, RBC 2.43 L, Hgb 7.2 L, Hct 21.6 L, MCV 88.9, MCH 29.6, MCHC 33.3, RDW Std Deviation 49.3 H, RDW Coeff of Candace 15.5 H, Plt Count 214, MPV 10.6, Immature Gran % (Auto) 0.400, Neut % (Auto) 59.6, Lymph % (Auto) 23.4, M amrita % (Auto) 11.4 H, Eos % (Auto) 4.2, Baso % (Auto) 1.0, Absolute Neuts (auto) 4.2, Absolute Lymphs (auto) 1.66, Nucleated RBC % 0, Sodium 135, Potassium 3.5, Chloride 101, Carbon Dioxide 23.8, Anion Gap 10, BUN 35 H, Creatinine 2.50 H, E stim Creat Clear Calc 36.50 L, Est GFR (MDRD) Non-Af 31 L, BUN/Creatinine Ratio 14.0, Glucose 105 H, Calcium 8.5 01/23/25 08:45: POC Glucose 111 H Microbiology: Microbiology 01/15/25 11:30 Blood Culture (Wb) - Pic Blood Culture - Final No growth in 5 days. 01/15/25 11:35 Blood Culture (Wb) - Right Wrist Blood Culture - Final No growth in 5 days. 01/06/25 16:28 Blood Culture (Wb) - Anticubital Left Blood Culture - Final No growth in 5 days. 01/06/25 16:41 Blood Culture (Wb) - Right Hand Blood Culture - Final No growth in 5 days. 01/07/25 Unknown Sputum, Induced/Lukens Gram Stain - Final 01/07/25 Unknown Sputum, Induced/[place]ens Respiratory Culture - Final Presumptive C albicans 01/07/25 18:45 Urine Catheter - Brady Legionella Antigen - Final 01/07/25 18:45 Urine Catheter - Brady Streptococcus pneumoniae Antigen (M - Final 01/07/25 16:30 Nasal Secretion MRSA (PCR) - Final 01/07/25 09:32 Mucosa - Nasopharyngeal Respiratory Panel (PCR) - Final 01/06/25 22:15 Nasal Secretion MRSA (PCR) - Final D/C Instructions DC O2, CPAP, BIPAP Needs Home O2 Discharge instructions: No Meaningful Use Info Meaningful Use Meaningful Use Diagnoses (Choose all that apply): None applicable Ischemic Stroke Statin Dosing Therapy Reference: STATIN DOSE THERAPY REFERENCE: * Patients > 75 years receive moderate or high dose statin therapy. * Patients 75 years or YOUNGER should receive HIGH intensity statin dose unless contraindicated. You will be required to document reason for non-treatment if statin daily dose does not meet guidelines. HIGH DOSE STATIN THERAPY DAILY Atorvastatin > than or = to 40 mg Rosuvastatin > than or = to 20 mg Amlodipine + Atorvastatin > than or = to 2.5/40 mg Ezetimibe + Simvastatin 10/80 mg Simvastatin 80mg Discharge Plan Admission Admit Date/Time: 01/06/25 16:37 Primary Reason for Your Visit: DKA, aspiration pneumonia, respiratory failure Attending Provider: Alfonso Monroe Primary Care Provider: Jah Rey Consulting Providers: Xavi Orona; Shen Reza; Shiv Still; Taylor Lopez; Ellyn Haro Discharge Orders/Prescriptions Prescriptions: New amlodipine 10 mg Tablet 10 mg PO DAILY Qty: 0 0RF hydralazine 50 mg Tablet 50 mg PO TID Qty: 0 0RF insulin glargine-yfgn 100 unit/mL (3 mL) Insulin Pen 15 unit subcut BID Qty: 0 0RF losartan 50 mg Tablet 50 mg PO DAILY Qty: 0 0RF pantoprazole 40 mg Tablet,Delayed Release (Dr/Ec) 40 mg PO DAILY Qty: 0 0RF metoprolol succinate 25 mg Tablet Extended Release 24 Hr 25 mg PO DAILY Qty: 0 0RF insulin lispro [Humalog KwikPen Insulin] 100 unit/mL Insulin Pen See Protocol subcut ACHS Qty: 0 0RF Protocol: 3. Sliding Scale Insulin Med Dosing Condition: 150-189 mg/dl = 1 unit Condition: 190-229 mg/dl = 2 units Condition: 230-269 mg/dl = 3 units Condition: 270-309 mg/dl = 4 units Condition: 310-349 mg/dl = 5 units Condition: 350-399 mg/dl = 6 units Condition: 400-449 mg/dl = 7 units Condition: Greater than 449 call physician Protocol Text: Suggested for: - Patients on Total Daily Insulin Dose of 37-55 units - Obese, infected, or steroid patients MEDIUM DOSING ALGORITHIM insulin lispro [Humalog KwikPen Insulin] 100 unit/mL Insulin Pen 8 unit subcut TIDAC Qty: 0 0RF menthol-zinc oxide [Calmoseptine] 0.44-20.6 % Ointment 1 applic topical TID Qty: 0 0RF Protocol: *Topical Application Instructions APPLICATION INSTRUCTIONS: groin/buttocks nicotine [Nicoderm CQ] 14 mg/24 hr patch 24 hour 1 patch transdermal DAILY Qty: 14 0RF sennosides-docusate sodium [Stimulant Laxative Plus] 8.6-50 mg Tablet 2 tab PO BID Qty: 0 0RF Pureflow B 3k Dialysis Soln 6 bag perfusion UD Qty: 0 0RF Continued sertraline [Zoloft] 50 mg tablet 50 mg PO DAILY atorvastatin 20 mg tablet 20 mg PO QHS Qty: 90 1RF amitriptyline 25 mg Tablet 25 mg PO QHS levothyroxine 25 mcg tablet 25 mcg PO DAILY Qty: 90 1RF cholecalciferol (vitamin D3) 125 mcg (5,000 unit) capsule 125 mcg PO QDAY Qty: 90 1RF Discontinued lisinopril 40 mg tablet 40 mg PO QDAY gabapentin 300 MG capsule 300 mg PO 4X/DAY No Action (DME) blood-glucose meter [OneTouch Verio Reflect Meter] Misc See Rx Instructions .Route Qty: 1 0RF Rx Instructions: As directed (DME) OneTouch Verio test strips Strip See Rx Instructions .Route Qty: 100 5RF Rx Instructions: TID pantoprazole 40 MG tablet 40 mg PO DAILY (DME) Omnipod 5 G6 Intro Kit (Gen 5) Cartridge See Rx Instructions .Route Rx Instructions: As directed insulin glargine [Lantus Solostar U-100 Insulin] 100 unit/mL (3 mL) insulin pen 35 unit subcut QHS Qty: 31.5 1RF amlodipine 10 mg tablet 10 mg PO DAILY Qty: 90 1RF insulin lispro [Humalog U-100 Insulin] 100 unit/mL solution 60 unit continuous subcutaneous infusion .continuous Qty: 54 1RF (DME) Omnipod 5 (G6/Maikel 2 Plus) Cartridge See Rx Instructions .Route Qty: 10 3RF Rx Instructions: 1 pod q 3 days (DME) FreeStyle Maikel 2 Plus Sensor Device See Rx Instructions .Route Qty: 2 5RF Rx Instructions: 1 sensors q 15 days Referrals / Follow Up: Jah Rey MD [Primary Care Provider] - Disposition Disposition (needs filled in before D/C Order can be placed): [facility] Facility Charges/Coding Visit Charges Inpatient E&M: 71830 Disch Hosp >30min
--- NOTE | 2025-01-23 14:11 | CASEMGMT ---
Social Work BASILIO completed the hospital exemption in the [facility] system. jaimie Mccann/nilesh corporate planning manager set up a 2:30pm ambulance for pt. SW spoke w/pt to let him know. Pt's long time aide Tor is visiting. Tor asked SW why pt is going to [facility]. SW again explained to pt and Tor that his son Koko had said [facility], and SW spoke w/pt and he was agreeable to this. SW explained that we did not just go by what the son Koko said, but that pt was agreeable. SW also explained that SW spoke w/pt earlier and he was once again agreeable to [facility]. Tor states understanding. SW did let pt know if he gets there and does not like it, the facility can work to get him to a different facility. SW also explained that if he needs dialysis longer term and is moving better, [facility] can help to set up transportation to get him to and from dialysis. Pt and Tor state understanding. Pt and Tor also asked about POA. SW explained that SW can get him blank copies, however would want pt's mental status to be a bit improved before completing them. SW did give pt the blank forms. Pt states he would want his son Curtis to be POA, not Koko. SW reviewed the forms w/pt and gave him the dept number to call once he is home, if he would like to come here to complete them. SW also let him know will see if [facility] can complete them with him. Pt at this time is agreeable to go to [facility]. BASILIO explained to pt and Tor that his mental status is not quite where it needs to be to complete the forms. BASILIO did ask Tor if pt is usually forgetful, Tor states not really. BASILIO called son Koko, let him know pt is going to [facility] and leaving at 2:30pm. SW explained to him that pt is not happy about it, and may want to make a change if he is unhappy when there. If that happens pt may need the assist of his sons to advocate for him. As per Koko, he and Curtis are in agreement w/pt going to [facility]. Koko states he does not know why pt is so focused on [facility] as he has never been there. BASILIO sent a message to [facility] asking them to complete POA w/pt if able. SW also did let them know that he will only want to be there a couple of weeks. No further needs, pt to [facility] today. NOAH Pope
--- NOTE | 2025-01-23 14:11 | CASEMGMT ---
Discharge Planning Discharge orders, signed med list, and transport time sent to [facility]. Physicians will transport pt by cot at 2:30p. Nursing and SW updated. SW updated pt and his son. Siobhan Song DC Planning Asst.
--- NOTE | 2025-01-23 15:35 | NURSING ---
called this faacility 3 times with no answer. phone cont to ring with no answer, voicemail, or recording
== END 2025-01-23 14:55 | disposition skilled nursing facility (03) | DRG 637 ==
LOC: ED 16:44 → ICU 17:05 → PCU 01-16 14:45
PROVIDERS: Anesthesiology; Family Medicine; Internal Medicine; Internal Medicine Critical Care Medicine; Internal Medicine Nephrology; Nurse Practitioner Adult Health; Physician Assistant; Surgery; Admitting Provider Hospitalist; Emergency Provider Emergency Medicine; PCP Internal Medicine; Visit Provider Internal Medicine
PROC: 0JH63XZ Insertion of Tunneled Vascular Access Device into Chest Subcutaneous Tissue and Fascia, Percutaneous Approach (ICD-10-PCS; principal; 2025-01-18 08:45)
DX: E10.11 Type 1 diabetes mellitus with ketoacidosis with coma (principal); G93.41 Metabolic encephalopathy; J96.01 Acute respiratory failure with hypoxia; J69.0 Pneumonitis due to inhalation of food and vomit; N17.0 Acute kidney failure with tubular necrosis; E87.4 Mixed disorder of acid-base balance; E87.1 Hypo-osmolality and hyponatremia; K70.10 Alcoholic hepatitis without ascites; E10.641 Type 1 diabetes mellitus with hypoglycemia with coma; F32.A Depression, unspecified; E03.9 Hypothyroidism, unspecified; I10 Essential (primary) hypertension; D64.9 Anemia, unspecified; Z68.37 Body mass index [BMI] 37.0-37.9, adult; Z89.512 Acquired absence of left leg below knee; E10.43 Type 1 diabetes mellitus with diabetic autonomic (poly)neuropathy; E10.51 Type 1 diabetes mellitus with diabetic peripheral angiopathy without gangrene; E10.42 Type 1 diabetes mellitus with diabetic polyneuropathy; K21.9 Gastro-esophageal reflux disease without esophagitis; E78.5 Hyperlipidemia, unspecified; F41.9 Anxiety disorder, unspecified; Z79.4 Long term (current) use of insulin; E87.6 Hypokalemia; K31.84 Gastroparesis; I95.9 Hypotension, unspecified; F17.210 Nicotine dependence, cigarettes, uncomplicated; E83.42 Hypomagnesemia; F10.10 Alcohol abuse, uncomplicated; E66.812 Obesity, class 2; Y90.0 Blood alcohol level of less than 20 mg/100 ml; Z96.41 Presence of insulin pump (external) (internal); Z79.890 Hormone replacement therapy; Z79.899 Other long term (current) drug therapy
CPT/HCPCS: 31500; 31720; 36415; 36569; 36600; 70450; 71045; 74018; 74230; 76000; 76700; 80048; 80053; 80076; 80307; 81001; 82010; 82043; 82077; 82436; 82550; 82570; 82728; 82803; 82947; 82962; 82977; 83036; 83540; 83550; 83605; 83690; 83735; 83880; 84100; 84132; 84133; 84156; 84300; 84478; 85025; 85027; 85610; 85730; 87040; 87070; 87205; 87340; 87449; 87633; 87641; 90937; 92526; 92610; 92611; 93005; 93306; 94002; 94003; 94640; 94660; 94667; 94668; 94762; 97110; 97112; 97162; 97166; 97530; 97535; 97802; 97803; 99252; 99285; C1750; P9047; Q9957; A4216; G0257; G0463; J0612; J1938; J2405; J2916

== ENCOUNTER 2025-02-22 09:48 | Day surgery (SDC) | payer MEDICARE, MEDICAID, SELFPAY ==
[2025-02-21 09:36] VITALS: BMI 20.7
--- NOTE | 2025-02-22 10:29 | PCM.HP.STD ---
HPI - General HPI Narrative TORI CANTOR, is a 49 M who presents with prior DIYA which required dialysis temporarily. He has had full renal recovery and is no longer requiring dialysis/catheter. [facility] Medical History Hyperlipidemia Insulin pump titration Presence of insulin pump Acute hypoxic respiratory failure DIYA (acute kidney injury) Nausea and vomiting Transaminitis Leukocytosis Altered mental status Acute renal failure Dehydration Counseling for insulin pump Vitamin D insufficiency Hyperkalemia Vitamin D deficiency Overweight Cough DKA (diabetic ketoacidoses) 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 Tobacco use disorder Polyneuropathy due to type 1 diabetes mellitus Wound discharge MRSA infection Marijuana use Open wound Thyroid disease Insulin dependent diabetes mellitus Arthritis Uses wheelchair Bladder disease Injury of back Difficulty chewing Dietary restriction Amputation of left lower extremity below knee Type 1 diabetes Current use of insulin Back pain due to injury Stroke Restless legs History of stress test Gastroparesis Vision loss of right eye Vision loss of left eye Hearing loss, left Hearing loss, right Anemia Substance abuse Alcohol abuse Anxiety Depression Hypothyroidism Diabetes Chronic pain Rheumatoid arthritis Osteoporosis Pancreatitis GERD (gastroesophageal reflux disease) Hepatitis Smoker Asthma Chest pain Hypertension Migraines Seizures Charcot foot due to diabetes mellitus Charcot ankle Neuropathy Cellulitis (~09/15/21) Diabetes mellitus Home Medications ?Medication ?Instructions ?Recorded ?Last Taken ?Type sertraline 50 mg tablet (Zoloft) 50 mg PO DAILY depression 03/05/22 06/18/22 History amitriptyline 25 mg tablet 25 mg PO QHS sleep 06/17/22 06/18/22 History insulin glargine 100 unit/mL (3 35 unit (0.35 mL) subcut QHS #31.5 09/23/23 Unknown Rx mL) subcutaneous pen (Lantus mL Solostar U-100 Insulin) blood sugar diagnostic (OneTouch #100 ea 05/02/24 Unknown Rx Verio test strips) blood-glucose meter (OneTouch #1 ea 05/02/24 Unknown Rx Verio Reflect Meter) cholecalciferol (vitamin D3) 125 125 mcg PO QDAY #90 caps 08/31/24 Unknown Rx mcg (5,000 unit) capsule insulin lispro 100 unit/mL 60 unit (0.6 mL) continuous 09/27/24 Unknown Rx subcutaneous solution (Humalog subcutaneous infusion .continuous U-100 Insulin) #54 mL insulin pump cartridge,automated 01/08/25 Unknown History dose,BT with controller subcutaneous PureFlow B 3K Dialysis Soln 6 bag perfusion UD ##0 01/23/25 Unknown Rx amlodipine 10 mg tablet 10 mg PO DAILY #0 tabs 01/23/25 Unknown Rx hydralazine 50 mg tablet 50 mg PO TID #0 tabs 01/23/25 Unknown Rx insulin glargine-yfgn 100 unit/mL 15 unit (0.15 mL) subcut BID #0 mL 01/23/25 Unknown Rx (3 mL) subcutaneous pen insulin lispro 100 unit/mL 8 unit (0.08 mL) subcut TIDAC #0 mL 01/23/25 Unknown Rx subcutaneous pen (Humalog KwikPen (U-100) Insulin) insulin lispro 100 unit/mL See Protocol subcut ACHS #0 mL 01/23/25 Unknown Rx subcutaneous pen (Humalog KwikPen (U-100) Insulin) menthol 0.44 %-zinc oxide 20.6 % 1 applic topical TID #0 grams 01/23/25 Unknown Rx topical ointment (Calmoseptine) metoprolol succinate 25 mg 25 mg PO DAILY #0 tabs 01/23/25 Unknown Rx tablet,extended release 24 hr nicotine 14 mg/24 hr daily 1 patch transdermal DAILY #14 ea 01/23/25 Unknown Rx transdermal patch (Nicoderm CQ) sennosides 8.6 mg-docusate sodium 2 tab PO BID #0 tabs 01/23/25 Unknown Rx 50 mg tablet (Stimulant Laxative Plus) blood-glucose sensor (FreeStyle #2 ea 01/26/25 Unknown Rx Maikel 2 Plus Sensor device) atorvastatin 40 mg tablet 40 mg PO QDAY 02/08/25 Unknown History insulin pump cart,auto,BT,G6/L #15 ea 02/08/25 Unknown Rx (Omnipod 5 (G6/Maikel 2 Plus) subcutaneous cartridge) lisinopril 40 mg tablet 40 mg PO QDAY 02/08/25 02/22/25 History pantoprazole 40 mg tablet,delayed 40 mg PO BID 02/08/25 02/22/25 History release ondansetron 4 mg disintegrating 4 mg PO Q8H PRN nausea and 02/15/25 Unknown Rx tablet vomiting #30 tabs levothyroxine 25 mcg tablet 25 mcg PO DAILY thyroid #90 tabs 02/17/25 02/22/25 Rx Allergy/AdvReac Type Severity Reaction Status Date / Time No Known Allergies Allergy Verified 02/08/25 14:21 Family History Other Cancer Diabetes Heart disease Surgical History S/P dialysis catheter insertion History of bilateral cataract extraction H/O tooth extraction History of left below knee amputation Social History Smoking Status: Current every day smoker tobacco type: cigarettes ROS Constitutional Constitutional: Denies chills, fever(s), frequent falls, lethargy or weakness Eyes Eyes: Denies blind spots, change in vision or loss of vision ENT HEENT: Denies bleeding gums, hoarseness or sore throat Cardiovascular Cardiovascular: Reports leg ulcers; Denies abdominal pain, bluish discoloration of hand/feet, chest pain with activity, claudication, cold extremities, cyanosis, dyspnea on exertion, erythema on extremities, irregular heart rhythm, leg edema, numbness in extremities or weakness in extremities Respiratory/Chest Respiratory/Chest: Denies cough, excessive phlegm production, shortness of breath at rest, shortness of breath with exertion or wheezing Gastrointestinal Gastrointestinal: Denies anorexia, change in stool character, constipation, diarrhea, melena or rectal bleeding Genitourinary Genitourinary: Denies dysuria or hematuria Musculoskeletal Musculoskeletal: Denies abnormal gait Integumentary Integumentary: Reports non-healing lesions and wounds; Denies erythema Neurologic Neurologic: Reports sensory deficit; Denies abnormal speech, focal weakness, headache(s), loss of vision, numbness or paresthesias Hematologic/Lymphatic Hematologic/Lymphatic: Denies easy bleeding, easy bruising or lymphadenopathy Vital Signs Vital Signs Vital Signs: Weight Weight: 145 lb Body Mass Index (BMI) 20.7 Physical Exam Const alert, oriented x3, no apparent distress and healthy appearing General Appearance: cooperative; Negative for combative or lethargic Orientation / Consciousness: awake Exam Limitations: no limitations HEENT Head and Scalp: normocephalic and atraumatic Eyes EOMs intact bilaterally General Eye: normal appearance of both eyes Neck full ROM and thyroid normal Resp normal respiratory effort and no use of accessory muscles Effort and Inspection: Negative for labored, stridor or audible wheezes Cardio regular rate and regular rhythm Peripheral Pulses: brachial pulses present and radial pulses present Back/Spine Cervical Spine: cervical ROM normal Extremity full ROM, normal capillary refill and no clubbing, cyanosis or edema Neuro oriented x3, CN's II-XII intact bilaterally and no focal motor deficits Psych thought process normal, cooperative, affect normal, speech normal and activity/motor behavior normal Assessment & Plan Assessment/Plan (1) Tunneled central venous catheter present: PLAN: -remove catheter
--- NOTE | 2025-02-22 12:53 | OP.PCM_ITS ---
Operative Report (Standard) Operative Information Date of Procedure: 02/22/25 Pre-Operative Diagnosis: Presence of tunneled dialysis catheter no longer in use Post-Operative Diagnosis: Same Surgery/Procedure Performed: Removal of tunneled dialysis catheter analyst competitive intelligence: No Type of Anesthesia: Local and Sedation,Conscious Procedure Start Time: 10:55 Procedure Stop Time: 11:05 Select all DRAINS/GRAFTS/IMPLANTS that apply: None Estimated Blood Loss: 2 Specimen collected: No Description of surgery: HPI: Patient is a 49-year-old male who suffered acute kidney injury requiring temporary dialysis. His renal function has since recovered and he no longer is in need of his dialysis catheter. Description of procedure: Upon obtaining informed consent and verification of correct patient procedure site the patient was taken to the catheter brace position prepped and draped in usual sterile fashion. Time was performed to find sedation ministered Versed and fentanyl. Skin surrounding the tunnel and cuff was anesthetized with 1% lidocaine. Blunt dissection was used to mobilize the catheter from the surrounding tissue from the skin exit site to the cuff. Once the surrounding tissue was liberated from the cuff attachments the catheter was withdrawn in its entirety and manual pressure held over the IJ puncture site. Dry sterile dressing was then applied the patient was taken the recovery room with anticipated discharge to home. Surgical Findings: See above Complications Complications: No
== END 2025-02-22 12:15 | disposition home or self-care (01) ==
PROVIDERS: PCP Internal Medicine; Referring Provider Surgery Trauma Surgery; Visit Provider Surgery Trauma Surgery
DX: Z45.2 Encounter for adjustment and management of vascular access device (principal); E10.42 Type 1 diabetes mellitus with diabetic polyneuropathy; Z79.4 Long term (current) use of insulin; K21.9 Gastro-esophageal reflux disease without esophagitis; Z79.899 Other long term (current) drug therapy; I10 Essential (primary) hypertension; Z96.41 Presence of insulin pump (external) (internal); E03.9 Hypothyroidism, unspecified; F17.210 Nicotine dependence, cigarettes, uncomplicated; E78.5 Hyperlipidemia, unspecified
CPT/HCPCS: 36589; 99152

== ENCOUNTER → 2025-03-27 | Outpatient (CLI) | payer MEDICARE, MEDICAID, SELFPAY ==
--- NOTE | 2025-03-27 13:31 | MRI_ITS ---
PROCEDURE: MRCP ABDOMEN WITHOUT CONTRAST 03/27/2025 REASON FOR EXAM: DILATED CBD TECHNIQUE: Procedure Code: MRIMRCP Modality: MR Procedure: MRCP ABDOMEN WITHOUT CONTRAST Multiplanar and multisequence images were obtained. 3D MRCP images were obtained. CONTRAST: None COMPARISON: December 11, 2021 FINDINGS: Liver: Normal Biliary: Normal appearance of the gallbladder. No calculus, wall thickening or pericholecystic fluid. No intrahepatic or extrahepatic biliary ductal dilation. No stricture or filling defects seen. Extrahepatic common bile duct is 7 mm. Pancreas: Normal Spleen: Normal Adrenals: Normal Kidneys: No collecting system dilation or solid mass. Simple cyst left lower pole measuring 11 mm. Peritoneum / Retroperitoneum: No free fluid or mass. Lymph Nodes: Normal Major Vessels: Normal caliber Bones: Situated between the 10th and 11th ribs near the level of the costotransverse junction is a small ellipsoid mass that shows water signal measuring 1.6 x 1.0 cm. This is stable since 2021 and is statistically benign. MRI/MRCP Abdomen without Contrast IMPRESSION: 1. Unremarkable appearance of the gallbladder. Unremarkable appearance of the bile ducts. No mass of the ampulla or pancreatic head. Correlate with obstructive laboratory indices if appropriate. Reading Location: [id number]
== END | disposition home or self-care (01) ==
LOC: OPMRI 13:28
PROVIDERS: PCP Internal Medicine; Referring Provider Nurse Practitioner Acute Care; Visit Provider Nurse Practitioner Acute Care
DX: K83.8 Other specified diseases of biliary tract (principal); K22.70 Barrett's esophagus without dysplasia
CPT/HCPCS: 74181

== ENCOUNTER 2025-04-10 08:09 | Day surgery (SDC) | payer MEDICARE, MEDICAID, SELFPAY ==
--- NOTE | 2025-04-04 16:43 | PAT.ANESEVAL ---
Pre-Assessment Diagnosis/Proposed Procedure Planned Operative Procedure(s): Colonoscopy,EGD Anesthesia History Anesthesia History - prune washer: Anesthesia History - prune washer Hx Hospitalization Yes: 6-25 DIYA 04/04/25 15:48 Any Problems With Anesthesia No 04/04/25 15:48 Cholinesterase deficiency No 04/04/25 15:48 You/Your Family Experience No 04/04/25 15:48 fever (hyperthermia) with Relationship Recent Exposure to Contagious No 01/18/25 08:06 Disease Does patient have nerve No 04/04/25 15:48 stimulator Patient instructed to have device shut off --Does patient have Pacemaker or ICD? When Was Last Pacemaker Check QUESTION #4 FULL TEXT: You/Your Family Experience fever (hyperthermia) with Anesthesia Last Oral Intake Last Oral intake: Last Oral Intake NPO since Meds taken in AM with sips of water? Meds patient instructed to take am of surgery PONV PONV - prune washer: PONV - prune washer Female No 04/04/25 15:48 HX of Motion Sickness No 04/04/25 15:48 HX of N/V After Surgery No 04/04/25 15:48 Non-Smoker No 04/04/25 15:48 Duration of Surgery greater No 04/04/25 15:48 than 60 minutes Number of Risk Factors PONV Score Height & Weight Height & Weight: Anesthesia: Height & Weight Height 5 ft 10 in 02/23/25 11:27 Respiratory Assessment Respiratory Assessment - prune washer: Respiratory Tract Infection Hx - prune washer Hx Respiratory Tract Infection No 04/04/25 15:48 STOP Sleep Apnea STOP Sleep Apnea - prune washer: STOP Sleep Apnea - prune washer Hx Hypertension Yes 04/04/25 15:48 Hx Sleep Apnea No 04/04/25 15:48 CPAP No 06/19/22 11:28 BIPAP No 01/26/20 20:20 Do you snore loudly (louder No 04/04/25 15:48 than talking or can be heard Do you often feel tired/ No 04/04/25 15:48 fatigued/ sleepy during daytime? Has anyone observed you stop No 04/04/25 15:48 breathing during sleep? STOP Results Negative 04/04/25 15:48 QUESTION #5 FULL TEXT : Do you snore loudly (louder than talking or can be heard through closed doors)? 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 Specify any problems Hx of Preganancy in last 3 N/A 04/04/25 15:48 Months Nurse Filling Out Transfusion JZOLLGENESIS 04/04/25 15:48 & Questions: Date: 04/04/25 04/04/25 15:48 Time: 15:51 04/04/25 15:48 Patient unable to answer at this time (ie. confused, unrespo /Reproduction History /Reproductive History - prune washer: /Reproductive Hx- prune washer Hx Now No 04/04/25 15:48 Gestational Age (in weeks): EDC: Hx Hx Para Hx Section SAB No 04/04/25 15:48 [facility] Medical History (Updated 04/04/25 @ 15:48 by Cass Sparrow) History of echocardiogram Tunneled central venous catheter present Acute hypoxic respiratory failure DIYA (acute kidney injury) Nausea and vomiting Transaminitis Leukocytosis Altered mental status Acute renal failure Dehydration Counseling for insulin pump Hyperlipidemia Insulin pump titration Presence of insulin pump Vitamin D insufficiency Hyperkalemia Vitamin D deficiency Overweight Cough 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 Tobacco use disorder Polyneuropathy due to type 1 diabetes mellitus Wound discharge MRSA infection Marijuana use Thyroid disease Insulin dependent diabetes mellitus Arthritis Uses wheelchair Bladder disease Injury of back Difficulty chewing Dietary restriction Amputation of left lower extremity below knee Type 1 diabetes Current use of insulin Back pain due to injury Stroke Restless legs History of stress test Gastroparesis Vision loss of right eye Vision loss of left eye Hearing loss, left Hearing loss, right Anemia Substance abuse Alcohol abuse Anxiety Depression Hypothyroidism Diabetes Chronic pain Rheumatoid arthritis Osteoporosis Pancreatitis GERD (gastroesophageal reflux disease) Hepatitis Smoker Asthma Chest pain Hypertension Migraines Seizures DKA (diabetic ketoacidoses) Charcot foot due to diabetes mellitus Charcot ankle Neuropathy Cellulitis (~09/15/21) Diabetes mellitus Home Medications ?Medication ?Instructions ?Recorded ?Last Taken ?Type sertraline 50 mg tablet (Zoloft) 50 mg PO DAILY depression 03/05/22 06/18/22 History amitriptyline 25 mg tablet 25 mg PO QHS sleep 06/17/22 06/18/22 History blood sugar diagnostic (OneTouch #100 ea 05/02/24 Unknown Rx Verio test strips) blood-glucose meter (OneTouch #1 ea 05/02/24 Unknown Rx Verio Reflect Meter) insulin pump cartridge,automated 01/08/25 Unknown History dose,BT with controller subcutaneous amlodipine 10 mg tablet 10 mg PO DAILY #0 tabs 01/23/25 Unknown Rx hydralazine 50 mg tablet 50 mg PO TID #0 tabs 01/23/25 Unknown Rx metoprolol succinate 25 mg 25 mg PO DAILY #0 tabs 01/23/25 Unknown Rx tablet,extended release 24 hr blood-glucose sensor (FreeStyle #2 ea 01/26/25 Unknown Rx Maikel 2 Plus Sensor device) atorvastatin 40 mg tablet 40 mg PO QDAY 02/08/25 Unknown History insulin pump cart,auto,BT,G6/L #15 ea 02/08/25 Unknown Rx (Omnipod 5 (G6/Maikel 2 Plus) subcutaneous cartridge) lisinopril 40 mg tablet 40 mg PO QDAY 02/08/25 02/22/25 History pantoprazole 40 mg tablet,delayed 40 mg PO BID 02/08/25 02/22/25 History release ondansetron 4 mg disintegrating 4 mg PO Q8H PRN nausea and 02/15/25 Unknown Rx tablet vomiting #30 tabs levothyroxine 25 mcg tablet 25 mcg PO DAILY thyroid #90 tabs 02/17/25 02/22/25 Rx gabapentin 100 mg capsule 100 mg PO QDAY 02/23/25 Unknown History peg 3350-electrolytes 236 240 ml PO Q10M #4,000 mL 02/23/25 Unknown Rx gram-22.74 gram-6.74 gram-5.86 gram solution (Golytely) insulin lispro 100 unit/mL 40 unit (0.4 mL) continuous 03/09/25 Unknown Rx subcutaneous solution (Humalog subcutaneous infusion .continuous U-100 Insulin) #12 mL Allergy/AdvReac Type Severity Reaction Status Date / Time No Known Allergies Allergy Verified 04/04/25 15:35 Family History Other Cancer Diabetes Heart disease Surgical History (Updated 04/04/25 @ 15:48 by Cass Sparrow) S/P dialysis catheter insertion History of bilateral cataract extraction H/O tooth extraction History of left below knee amputation Social History Smoking Status: Current every day smoker tobacco type: cigarettes Audit: Pertinent Findings Pertinent Findings EKG Perinent findings: January 18, 2025. Normal sinus rhythm. Septal infarct (cited on or before September 15, 2021). Compared to EKG of 01/07/2025, T wave inversion no longer evident in anterior leads. Echo (EF%) pertinent findings: 01/09/2025. EF of 65%. No aortic stenosis noted. Consult pertinent findings: 01/11/2025. Dr. Bryan. 1. Acute hypoxic respiratory failure-patients chest x-ray shows some slight improvement in the diffuse opacities which appear to be clinically more consistent with pneumonitis than pulmonary edema. EF preserved on echo. Rhythm is stable. Patient is cardiac stable. Recommendation Anesthesia Recommendation Anesthesia recommendation: OPTIMIZED for anesthesia
[2025-04-10] VITALS (7 sets, daily range): BP systolic 73–140; BP diastolic 7–96; PULSE 73–95; RESP 14–16; TEMP 36.1–36.2; O2SAT 98–100; BMI 24.7
--- NOTE | 2025-04-10 07:55 | PRE.ANES_ITS ---
ASA Classification* ASA Classification ASA Classification: 3 Assessment & Plan Anesthesia* Anesthesia Assessment Anesthesia Assessment: Discussed sedation and/or anesthesia options, risks, benefits, and alternatives with patient/parents/legal guardian/POA. Questions invited. The patient/parents/legal guardian/POA seems to understand and agrees to proceed with anesthesia plan. Reviewed the physical assessment, medical history, allergy history and patient home medications list prior to surgery/procedure/anesthetic and documented any changes. Performed airway and anesthesia risk assessments. Anesthesia Type Anesthesia Type: MAC Anesthesia Focused Assessment* Airway Assessment Mouth opens: >3 cm Mallampati Score: II Labs Anesthesia Preop lab: CBC WBC, (4.4-11.0) 7.1 K/mm3 01/23/25, 05:55 RBC, (4.6-6.2) 2.43 M/mm3 L 01/23/25, 05:55 Hgb, (13.0-16.5) 7.2 g/dL L 01/23/25, 05:55 Hct, (40-54) 21.6 % L 01/23/25, 05:55 Plt Count, (150-450) 214 K/mm3 01/23/25, 05:55 CHEMISTRY Potassium, (3.3-5.1) 3.5 mmol/L 01/23/25, 05:55 Sodium, (133-145) 135 mmol/L 01/23/25, 05:55 Magnesium, (1.5-2.2) 1.6 mg/dL 01/19/25, 20:34 Phosphorus, (2.7-4.5) 4.6 mg/dL H 01/18/25, 05:20 BUN, (4-19) 35 mg/dL H 01/23/25, 05:55 Creatinine, (0.70-1.20) 2.50 mg/dL H 01/23/25, 05:55 Glucose, (70-99) 105 mg/dL H 01/23/25, 05:55 POC Glucose, (74-106) 156 mg/dL H 01/23/25, 12:59 TSH, (0.358-3.74) 1.32 uIU/mL 02/10/24, 15:30 COAG PT, (11.7-14.9) 15.6 SECONDS H 01/18/25, 06:38 Pre-Assessment Diagnosis/Proposed Procedure Planned Operative Procedure(s): Colonoscopy,EGD Anesthesia History 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 When Was Last Pacemaker Check QUESTION #4 FULL TEXT: You/Your Family Experience fever (hyperthermia) with Anesthesia Last Oral Intake Last Oral intake: Last Oral Intake NPO since Meds taken in AM with sips of water? Meds patient instructed to take am of surgery PONV PONV - engineered wood designer: PONV - engineered wood designer Female No 04/04/25 15:48 HX of Motion Sickness No 04/04/25 15:48 HX of N/V After Surgery No 04/04/25 15:48 Non-Smoker No 04/04/25 15:48 Duration of Surgery greater No 04/04/25 15:48 than 60 minutes Number of Risk Factors PONV Score Height & Weight Height & Weight: Anesthesia: Height & Weight Height 5 ft 10 in 03/23/25 11:34 Respiratory Assessment Respiratory Assessment - engineered wood designer: Respiratory Tract Infection Hx - engineered wood designer Hx Respiratory Tract Infection No 04/04/25 15:48 STOP Sleep Apnea STOP Sleep Apnea - engineered wood designer: STOP Sleep Apnea - engineered wood designer Hx Hypertension Yes 04/04/25 15:48 Hx Sleep Apnea No 04/04/25 15:48 CPAP No 06/19/22 11:28 BIPAP No 01/26/20 20:20 Do you snore loudly (louder No 04/04/25 15:48 than talking or can be heard Do you often feel tired/ No 04/04/25 15:48 fatigued/ sleepy during daytime? Has anyone observed you stop No 04/04/25 15:48 breathing during sleep? STOP Results Negative 04/04/25 15:48 QUESTION #5 FULL TEXT : Do you snore loudly (louder than talking or can be heard through closed doors)? 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 Specify any problems Hx of Preganancy in last 3 N/A 04/04/25 15:48 Months Nurse Filling Out Transfusion JZOLLINGE 04/04/25 15:48 & Questions: Date: 04/04/25 04/04/25 15:48 Time: 15:51 04/04/25 15:48 Patient unable to answer at this time (ie. confused, unrespo /Reproduction History /Reproductive History - engineered wood designer: /Reproductive Hx- engineered wood designer Hx Now No 04/04/25 15:48 Gestational Age (in weeks): EDC: Hx Hx Para Hx Section SAB No 04/04/25 15:48 [facility] Medical History History of echocardiogram Tunneled central venous catheter present Acute hypoxic respiratory failure DIYA (acute kidney injury) Nausea and vomiting Transaminitis Leukocytosis Altered mental status Acute renal failure Dehydration Counseling for insulin pump Hyperlipidemia Insulin pump titration Presence of insulin pump Vitamin D insufficiency Hyperkalemia Vitamin D deficiency Overweight Cough 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 Tobacco use disorder Polyneuropathy due to type 1 diabetes mellitus Wound discharge MRSA infection Marijuana use Thyroid disease Insulin dependent diabetes mellitus Arthritis Uses wheelchair Bladder disease Injury of back Difficulty chewing Dietary restriction Amputation of left lower extremity below knee Type 1 diabetes Current use of insulin Back pain due to injury Stroke Restless legs History of stress test Gastroparesis Vision loss of right eye Vision loss of left eye Hearing loss, left Hearing loss, right Anemia Substance abuse Alcohol abuse Anxiety Depression Hypothyroidism Diabetes Chronic pain Rheumatoid arthritis Osteoporosis Pancreatitis GERD (gastroesophageal reflux disease) Hepatitis Smoker Asthma Chest pain Hypertension Migraines Seizures DKA (diabetic ketoacidoses) Charcot foot due to diabetes mellitus Charcot ankle Neuropathy Cellulitis (~09/15/21) Diabetes mellitus Home Medications ?Medication ?Instructions ?Recorded ?Last Taken ?Type sertraline 50 mg tablet (Zoloft) 50 mg PO DAILY depres tania 03/05/22 06/18/22 History amitriptyline 25 mg tablet 25 mg PO QHS sleep 06/17/22 06/18/22 History blood sugar diagnostic (OneTouch #100 ea 05/02/24 Unkn own Rx Verio test strips) blood-glucose meter (OneTouch #1 ea 05/02/24 Unknown R x Verio Reflect Meter) insulin pump cartridge,automated 01/08/25 Unknown His tory dose,BT with controller subcutaneous amlodipine 10 mg tablet 10 mg PO DAILY #0 tabs 01/23 Unknown Rx hydralazine 50 mg tablet 50 mg PO TID #0 tabs 5 Unknown Rx metoprolol succinate 25 mg 25 mg PO DAILY #0 tabs 02/10 Unknown Rx tablet,extended release 24 hr blood-glucose sensor (FreeStyle #2 ea 01/26/25 Unknown Rx Maikel 2 Plus Sensor device) atorvastatin 40 mg tablet 40 mg PO QDAY 02/08/25 Unkno wn History insulin pump cart,auto,BT,G6/L #15 ea 02/08/25 Unknown Rx (Omnipod 5 (G6/Maikel 2 Plus) subcutaneous cartridge) lisinopril 40 mg tablet 40 mg PO QDAY 02/08/2502/22 History pantoprazole 40 mg tablet,delayed 40 mg PO BID 5 02/22/25 History release ondansetron 4 mg disintegrating 4 mg PO Q8H PRN nausea and 02/15/25 Unknown Rx tablet vomiting #30 tabs levothyroxine 25 mcg tablet 25 mcg PO DAILY thyroid #9 0 tabs 02/17/25 02/22/25 Rx gabapentin 100 mg capsule 100 mg PO QDAY 02/23/25 Unkn own History peg 3350-electrolytes 236 240 ml PO Q10M #4,000 mL 02/10 Unknown Rx gram-22.74 gram-6.74 gram-5.86 gram solution (Golytely) insulin lispro 100 unit/mL 40 unit (0.4 mL) continuous 03/09/25 Unknown Rx subcutaneous solution (Humalog subcutaneous infusion . continuous U-100 Insulin) #12 mL Allergy/AdvReac Type Severity Reaction Status Date / Time No Known Allergies Allergy Verified 04/04/25 15:35 Family History Other Cancer Diabetes Heart disease Surgical History S/P dialysis catheter insertion History of bilateral cataract extraction H/O tooth extraction History of left below knee amputation Social History Smoking Status: Current every day smoker tobacco type: cigarettes Review of Systems (Anesthesia) ROS Narrative System reviewed and no additional complaints, except as documented.
--- NOTE | 2025-04-10 08:32 | PCM.HP.STD ---
HPI - General General Date of Admission: 04/10/25 Date of Service: 04/10/25 Chief Complaint: Abdominal pain and Evans's esophagus HPI Narrative TORI CANTOR, is a 49 M who presents with the Chief Complaint: abdominal pain Details: EGD 2021 - Evans's, negative for dysplasia Colonoscopy 2021 - Preparation of the colon was inadequate. - Diverticulosis in the recto-sigmoid colon, in the sigmoid colon and in the descending colon. - The entire examined colon is normal. - Stool in the entire examined colon. - The examination was otherwise normal. - No specimens collected. - denies any known family h/o colon CA - before recent admission he would go 1-2 week without a BM - when first home after admission he was having diarrhea - he is having abdominal pain, cramping, nausea - nausea has improved - he continues to eat softer foods - weight loss during recent admission, reported weight of 145lbs - denies any HB - on pantoprazole 40mg daily - tobacco smoker - marijuana smoker for pain management, daily, for 15+ years - EtOH - denies any alcohol in 3-4 months, he used to drink too much in the drug days in past 6 years alcohol has only been social, 1 beer an evening or less 02/08/2025 A1C 8.5 01/23/2025 HGB 7.2 ABD US 01/07/2025 hepatomegaly, GB WNL, CBD 8mm The patient is a 49-year-old male presenting with gastrointestinal issues, including significant cramping in the abdominal region. These symptoms began following a period of hospitalization for kidney failure, from which he has since recovered. Post-discharge, the patient experienced severe stomach pain and initially required the use of ondansetron with meals; this medication is no longer needed. In addition to current gastrointestinal complaints, the patient reports prior difficulties following an episode of aspiration pneumonia during his hospitalization, which necessitated dietary modifications under supervision. Since this episode, he has transitioned back to solids with no current issues swallowing. The patient is overdue for a colonoscopy, with his last attempt 2.5 years ago being unsuccessful due to dietary non-compliance during the preparation phase. His family history is significant for potential colon cancer, having lost his father recently to an abdominal condition that may have involved malignancy, as well as mention of affected uncles. Bowel habits have shifted from uncontrolled watery diarrhea immediately following hospital discharge, to now having regular, formed bowel movements at least once daily. Previously, he would go weeks without a bowel movement, combined with bouts of indigestion and a necessity for twice-daily pantoprazole due to diagnosed GERD and Evans's esophagus. Despite an enlarged liver and dilated bile duct identified in a previous ultrasound in December, there are no reported episodes of gross blood or evidence of hepatic decompensation. The patient has a past medical history of Type 1 Diabetes, managed with an insulin pump, although dexterity issues from neuropathy complicate self-management, especially with recent limb amputation. Social history reveals a longstanding history of cannabis use, previously more significant substance use including a resolved Hepatitis C infection, and alcohol use confined to a non-abusive social context in recent years. He is currently a tobacco smoker. Attestation: Documentation on this patient encounter was supported using ambient scribe technology/ voice AI technology. The patient consented to recording for the purpose of documenting the encounter. Provider reviewed content of the generated note prior to signature. [facility] Medical History History of echocardiogram Tunneled central venous catheter present Acute hypoxic respiratory failure DIYA (acute kidney injury) Nausea and vomiting Transaminitis Leukocytosis Altered mental status Acute renal failure Dehydration Counseling for insulin pump Hyperlipidemia Insulin pump titration Presence of insulin pump Vitamin D insufficiency Hyperkalemia Vitamin D deficiency Overweight Cough 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 Tobacco use disorder Polyneuropathy due to type 1 diabetes mellitus Wound discharge MRSA infection Marijuana use Thyroid disease Insulin dependent diabetes mellitus Arthritis Uses wheelchair Bladder disease Injury of back Difficulty chewing Dietary restriction Amputation of left lower extremity below knee Type 1 diabetes Current use of insulin Back pain due to injury Stroke Restless legs History of stress test Gastroparesis Vision loss of right eye Vision loss of left eye Hearing loss, left Hearing loss, right Anemia Substance abuse Alcohol abuse Anxiety Depression Hypothyroidism Diabetes Chronic pain Rheumatoid arthritis Osteoporosis Pancreatitis GERD (gastroesophageal reflux disease) Hepatitis Smoker Asthma Chest pain Hypertension Migraines Seizures DKA (diabetic ketoacidoses) Charcot foot due to diabetes mellitus Charcot ankle Neuropathy Cellulitis (~09/15/21) Diabetes mellitus Home Medications ?Medication ?Instructions ?Recorded ?Last Taken ?Type sertraline 50 mg tablet (Zoloft) 50 mg PO DAILY depression 03/05/22 06/18/22 History amitriptyline 25 mg tablet 25 mg PO QHS sleep 06/17/22 06/18/22 History blood sugar diagnostic (OneTouch #100 ea 05/02/24 Unknown Rx Verio test strips) blood-glucose meter (OneTouch #1 ea 05/02/24 Unknown Rx Verio Reflect Meter) insulin pump cartridge,automated 01/08/25 Unknown History dose,BT with controller subcutaneous amlodipine 10 mg tablet 10 mg PO DAILY #0 tabs 01/23/25 Unknown Rx hydralazine 50 mg tablet 50 mg PO TID #0 tabs 01/23/25 Unknown Rx metoprolol succinate 25 mg 25 mg PO DAILY #0 tabs 01/23/25 Unknown Rx tablet,extended release 24 hr blood-glucose sensor (FreeStyle #2 ea 01/26/25 Unknown Rx Maikel 2 Plus Sensor device) atorvastatin 40 mg tablet 40 mg PO QDAY 02/08/25 Unknown History insulin pump cart,auto,BT,G6/L #15 ea 02/08/25 Unknown Rx (Omnipod 5 (G6/Maikel 2 Plus) subcutaneous cartridge) lisinopril 40 mg tablet 40 mg PO QDAY 02/08/25 02/22/25 History pantoprazole 40 mg tablet,delayed 40 mg PO BID 02/08/25 02/22/25 History release ondansetron 4 mg disintegrating 4 mg PO Q8H PRN nausea and 02/15/25 Unknown Rx tablet vomiting #30 tabs levothyroxine 25 mcg tablet 25 mcg PO DAILY thyroid #90 tabs 02/17/25 02/22/25 Rx gabapentin 100 mg capsule 100 mg PO QDAY 02/23/25 Unknown History peg 3350-electrolytes 236 240 ml PO Q10M #4,000 mL 02/23/25 Unknown Rx gram-22.74 gram-6.74 gram-5.86 gram solution (Golytely) insulin lispro 100 unit/mL 40 unit (0.4 mL) continuous 03/09/25 Unknown Rx subcutaneous solution (Humalog subcutaneous infusion .continuous U-100 Insulin) #12 mL Allergy/AdvReac Type Severity Reaction Status Date / Time No Known Allergies Allergy Verified 04/10/25 08:30 Family History Other Cancer Diabetes Heart disease Surgical History S/P dialysis catheter insertion History of bilateral cataract extraction H/O tooth extraction History of left below knee amputation Social History Smoking Status: Current every day smoker tobacco type: cigarettes ROS Constitutional Constitutional: Denies fatigue, fever(s), poor appetite, weight gain or weight loss Gastrointestinal Gastrointestinal: Denies belching, bloating, change in bowel habits, change in stool character, chewing difficulty, coffee ground emesis, constipation, cramping, diarrhea, dyspepsia, dysphagia, early satiety, excessive flatus, fecal incontinence, heartburn, hematemesis, hematochezia, hemorrhoids, loose stools, melena, nausea, odynophagia, rectal bleeding, tenesmus, vomiting or weight changes Physical Exam Const alert, oriented x3, no apparent distress and healthy appearing General Appearance: cooperative GI normal to inspection, nondistended, normoactive bowel sounds, soft to palpation, non-tender and non-distended Percussion: normal to percussion Rectal Exam: deferred Assessment & Plan Assessment/Plan (1) Abdominal pain: (2) Nausea: (3) Encounter for screening colonoscopy: (4) Evans's esophagus: PLAN: Assessment and Plan Assessment and Plan (1) Evans's esophagus: Status: Acute Plan: EGD (2) Dilated cbd, acquired: Status: Acute Comment: ABD US 01/07/2025 hepatomegaly, GB WNL, CBD 8mm Plan: MRCP Obtain recent labs from PCP (3) Encounter for screening colonoscopy: Status: Acute Plan: Colonoscopy - GoLytely (4) Abdominal pain: Status: Acute (5) Nausea: Status: Acute Orders: Orders MRCP Abdomen without Contrast Today K22.70 - Evans's esophagus without dysplasia, K83.8 - Other specified diseases of biliary tract Medications: New peg 3350-electrolytes 236-22.74-6.74 -5.86 gram (Golytely) as directed for split dose bowel prep 240 mL PO Q10M 4,000 mL 0RF Plan 49y/o male presents for consultation of abdominal pain. His PMH is significant for HTN, CVA, Hypothyroidism, Asthma, DM (poorly controlled), alcohol abuse, HCV (Tx. Epclusa 2022), Evans's, Gastroparesis, GERD, Seizures, Pancreatitis, Neuropathy, Left BKA. Last seen at [facility] by Destinee Galvan, October 2022 after completion of 12 week course of Epclusa for HCV. Recent admission with acute hypoxic respiratory failure, DKA, DIYA secondary to ischemic ATN in the setting of DKA and hypotension-requiring hemodialysis. He complains of severe abdominal cramping, abdominal pain, nausea with resolving diarrhea. ABD US revealed hepatomegaly and dilated CBD (8mm). I have scheduled him for an MRCP, EGD and colonoscopy. We will obtain recent labs performed by PCP and he will complete [facility] stool tetsing. Patient Instructions: - Follow instructions for the colonoscopy preparation carefully, and do not eat during the fasting period before the procedure. - Continue taking pantoprazole twice a day as prescribed. - Schedule and complete the recommended tests, including an EGD and the MRCP. - Call the office if you experience any new or worsening symptoms, especially chest pain or changes in bowel habits. - Try to reduce smoking, and explore cessation support if needed. - Report any issues with insulin pump management and seek assistance when necessary. - Maintain regular monitoring of blood glucose levels and report any significant changes. - Continue dietary modifications per previous guidance, striving for balanced meals.
[2025-04-10] MEDS: Lactated Ringers 1,000 ML 15 ML IV (08:45)
--- NOTE | 2025-04-10 08:45 | COLBX_PTH ---
PATIENT: TORI CANTOR LOC: EN U#:[id number] AGE/SX: 49/M ROOM: RE04/10/[address]: Dr. Santos Terrazas DO : 1975 BED: DIS: 04/10/2025 SPEC #: [id number] RECD: 04/10/25 12:06 STATUS: MARIIA FLORENCIA #: [id number] ANTOINE: 04/10/25 08:[address]: Santos Terrazas DEPT: SURGICAL PATHOLOGY RECD BY: Maximo Mcghee ENTERED: 04/10/25 14:28 SP TYPE: COLON BX OTHR DR: Dr. Jah Rey MD Tissues: A - Esophagus, NOS B - Duodenum, NOS C - Stomach, NOS Procedures: Surgery Specimen Level IV HEADER OPERATION: Incomplete colonoscopy, EGD with biopsy PRE-OP DIAGNOSIS: Abdominal pain, nausea, encounter for screening colonoscopy, Evans's esophagus TISSUE SUBMITTED: A- Distal esophagus biopsy, B- Duodenum biopsy, C- Splenic gastric region biopsy MICROSCOPIC DIAGNOSIS A. Distal esophagus, biopsy: * Evans mucosa negative for dysplasia. B. Duodenum, biopsy: * Normal villous architecture with focal mildly increased Intraepithelial lymphocytes - see note. Note: This pattern of injury is etiologically nonspecific and the differential diagnosis includes sensitivity to gluten and non-gluten proteins, small intestinal bacterial overgrowth, stasis related changes, infection, protein calorie malnutrition, tropical sprue, and medication injury (NSAIDs, Olmesartan / Benicar, Mycophenolic acid, Idelalisib, for example). If celiac disease is a clinical concern, additional clinical studies, such as tTG-IgA, are recommended. C. Splenic gastric region, biopsy: * Fragments of oxyntic gastric mucosa with dilated fundic glands - see note. Note: The findings raise consideration of fundic gland polyp. Recommend clinical/endoscopic correlation. MICROSCOPIC DESCRIPTION Slides are reviewed. GROSS DESCRIPTION A. Received in fixative is one container labeled with the patient's name and designated Distal esophagus biopsy. The specimen consists of four irregular fragments of jhaveri tissue that measure 0.3 to 0.5 cm. The specimen is totally submitted in one cassette. B. Received in fixative is one container labeled with the patient's name and designated Duodenum biopsy. The specimen consists of two irregular fragments of jhaveri tissue, each measuring 0.5 cm. The specimen is totally submitted in one cassette. C. Received in fixative is one container labeled with the patient's name and designated Splenic gastric region biopsy. The specimen consists of three irregular fragments of jhaveri tissue that measure <0.1 to 0.6 cm. Smallest fragment unlikely to survive processing. The specimen is totally submitted in one cassette. ID 04/10/2025 CPT:[id number]
--- NOTE | 2025-04-10 09:36 | OP.EGD_ITS ---
Patient Name: Orlando Echevarria Procedure Date: 04/10/2025 9:07 AM Date of : 1975 Age: 49 Procedure: Upper GI endoscopy Indications: Epigastric abdominal pain, Functional Dyspepsia, Follow-up of Evans's esophagus Providers: Santos Terrazas DO Referring MD: Jah Rey Medicines: Monitored Anesthesia Care Patient Profile: This is a 49 year old male. Refer to note in patient chart for documentation of history and physical. Patient has symptoms of acute left upper quadrant abdominal pain and chronic heartburn. Complications: No immediate complications. Procedure: Pre-Anesthesia Assessment: - Prior to the procedure, a History and Physical was performed, and patient medications and allergies were reviewed. The patient is competent. The risks and benefits of the procedure and the sedation options and risks were discussed with the patient. All questions were answered and informed consent was obtained. Patient identification and proposed procedure were verified by the physician in the pre-procedure area. Mental Status Examination: alert and oriented. Airway Examination: normal oropharyngeal airway and neck mobility. Respiratory Examination: clear to auscultation. CV Examination: normal. Prophylactic Antibiotics: The patient does not require prophylactic antibiotics. Prior Anticoagulants: The patient has taken no anticoagulant or antiplatelet agents except for NSAID medication. ASA Grade Assessment: II - A patient with mild systemic disease. After reviewing the risks and benefits, the patient was deemed in satisfactory condition to undergo the procedure. The anesthesia plan was to use monitored anesthesia care (MAC). Immediately prior to administration of medications, the patient was re-assessed for adequacy to receive sedatives. The heart rate, respiratory rate, oxygen saturations, blood pressure, adequacy of pulmonary ventilation, and response to care were monitored throughout the procedure. The physical status of the patient was re-assessed after the procedure. After obtaining informed consent, the endoscope was passed under direct vision. Throughout the procedure, the patient's blood pressure, pulse, and oxygen saturations were monitored continuously. The Colonoscope was introduced through the mouth, and advanced to the third part of the duodenum. Small bowel enteroscopy was deemed necessary. The upper GI endoscopy was accomplished without difficulty. The patient tolerated the procedure well. Scope In: 9:14:40 AM Scope Out: 9:20:56 AM Total Procedure Duration Time 0 hours 6 minutes 16 seconds Findings: There were esophageal mucosal changes consistent with long-segment Evans's esophagus present in the lower third of the esophagus. The maximum longitudinal extent of these mucosal changes was 5 cm in length. Mucosa was biopsied with a cold forceps for histology in a targeted manner at intervals of 1 cm in the lower third of the esophagus. One specimen bottle was sent to pathology. Verification of patient identification for the specimen was done. Estimated blood loss was minimal. A small hiatal hernia was present. Localized prominent gastric folds were found in the gastric fundus. Biopsies were taken with a cold forceps for histology. Verification of patient identification for the specimen was done. Biopsies were taken with a cold forceps for Helicobacter pylori testing. Verification of patient identification for the specimen was done. Estimated blood loss was minimal. Patchy mildly erythematous mucosa without active bleeding and with no stigmata of bleeding was found in the entire duodenum. Biopsies were taken with a cold forceps for histology. Verification of patient identification for the specimen was done. Estimated blood loss was minimal. Impression: - Esophageal mucosal changes consistent with long-segment Evans's esophagus. Biopsied. - Small hiatal hernia. - Enlarged gastric folds. Biopsied. - Erythematous duodenopathy. Biopsied. Recommendation: - Discharge patient to home. - Resume previous diet. - Continue present medications. - Await pathology results. Procedure Code(s): --- Professional --- 93832, Small intestinal endoscopy, enteroscopy beyond second portion of duodenum, not including ileum; with biopsy, single or multiple CPT copyright 2021 [employer]. All rights reserved. The codes documented in this report are preliminary and upon supply chain project manager review may be revised to meet current compliance requirements. Santos Terrazas DO 04/10/2025 9:36:28 AM This report has been signed electronically. Number of Addenda: 0 Note Initiated On: 04/10/2025 9:07 AM
--- NOTE | 2025-04-10 09:37 | OP.PROVAT_ITS ---
04/10/2025 Jah Rey [address] [place] [address] Re : Upper GI endoscopy procedure for Orlando Echevarria Dear Dr. Rey This procedure was performed on Thursday, April 10, 2025. My impressions and recommendations are as follows: Impressions : - Esophageal mucosal changes consistent with long-segment Evans's esophagus. Biopsied. - Small hiatal hernia. - Enlarged gastric folds. Biopsied. - Erythematous duodenopathy. Biopsied. Recommendations : - Discharge patient to home. - Resume previous diet. - Continue present medications. - Await pathology results. My findings are described in the full procedure note, which is enclosed. If I can be of further assistance, please feel free to contact me at . Sincerely, Santos Terrazas, 04/10/2025 9:36:28 AM This report has been signed electronically.
--- NOTE | 2025-04-10 09:40 | OP.PROVAT_ITS ---
04/10/2025 Jah Rey [address] [place] [address] Re : Colonoscopy procedure for Orlando Echevarria Dear Dr. Rey This procedure was performed on Thursday, April 10, 2025. My impressions and recommendations are as follows: Impressions : - Diverticulosis in the recto-sigmoid colon and in the sigmoid colon. - Stool in the entire examined colon. - No specimens collected. Recommendations : - Discharge patient to home. - Resume previous diet. - Repeat colonoscopy because the bowel preparation was poor. - Continue present medications. My findings are described in the full procedure note, which is enclosed. If I can be of further assistance, please feel free to contact me at . Sincerely, Santos Terrazas, 04/10/2025 9:39:58 AM This report has been signed electronically.
--- NOTE | 2025-04-10 09:40 | OP.COLON_ITS ---
Patient Name: Orlando Echevarria Procedure Date: 04/10/2025 9:21 AM Date of : 1975 Age: 49 Procedure: Colonoscopy Indications: Generalized abdominal pain, Abdominal pain in the left lower quadrant, Abdominal pain in the right lower quadrant Providers: Santos Terrazas DO Referring MD: Jah Rey Medicines: Monitored Anesthesia Care Patient Profile: This is a 49 year old male. Refer to note in patient chart for documentation of history and physical. Patient has symptoms of acute left upper quadrant abdominal pain and chronic heartburn. Last Colonoscopy: within the past 3 months. Complications: No immediate complications. Procedure: Pre-Anesthesia Assessment: - Prior to the procedure, a History and Physical was performed, and patient medications and allergies were reviewed. The patient is competent. The risks and benefits of the procedure and the sedation options and risks were discussed with the patient. All questions were answered and informed consent was obtained. Patient identification and proposed procedure were verified by the physician in the pre-procedure area. Mental Status Examination: alert and oriented. Airway Examination: normal oropharyngeal airway and neck mobility. Respiratory Examination: clear to auscultation. CV Examination: normal. Prophylactic Antibiotics: The patient does not require prophylactic antibiotics. Prior Anticoagulants: The patient has taken no anticoagulant or antiplatelet agents except for NSAID medication. ASA Grade Assessment: II - A patient with mild systemic disease. After reviewing the risks and benefits, the patient was deemed in satisfactory condition to undergo the procedure. The anesthesia plan was to use monitored anesthesia care (MAC). Immediately prior to administration of medications, the patient was re-assessed for adequacy to receive sedatives. The heart rate, respiratory rate, oxygen saturations, blood pressure, adequacy of pulmonary ventilation, and response to care were monitored throughout the procedure. The physical status of the patient was re-assessed after the procedure. After I obtained informed consent, the scope was passed under direct vision. Throughout the procedure, the patient's blood pressure, pulse, and oxygen saturations were monitored continuously. The adult colonoscope was introduced through the anus and advanced to the hepatic flexure. The colonoscopy was performed without difficulty. The patient tolerated the procedure well. The quality of the bowel preparation was 90 percent obscured. Scope In: 9:26:57 AM Scope Out: 9:29:35 AM Total Procedure Duration Time 0 hours 2 minutes 38 seconds Findings: The perianal and digital rectal examinations were normal. Pertinent negatives include normal sphincter tone. Multiple small and large-mouthed diverticula were found in the recto-sigmoid colon and sigmoid colon. Extensive amounts of stool was found in the entire colon, precluding visualization. Impression: - Diverticulosis in the recto-sigmoid colon and in the sigmoid colon. - Stool in the entire examined colon. - No specimens collected. Recommendation: - Discharge patient to home. - Resume previous diet. - Repeat colonoscopy because the bowel preparation was poor. - Continue present medications. Procedure Code(s): --- Professional --- 67932, 53, Colonoscopy, flexible; diagnostic, including collection of specimen(s) by brushing or washing, when performed (separate procedure) CPT copyright 2021 [employer]. All rights reserved. The codes documented in this report are preliminary and upon animal assisted therapist review may be revised to meet current compliance requirements. Santos Terrazas DO 04/10/2025 9:39:58 AM This report has been signed electronically. Number of Addenda: 0 Note Initiated On: 04/10/2025 9:21 AM
--- NOTE | 2025-04-10 09:42 | PCM.POST.ANE ---
Anesthesia: Postop Eval I Current Vital Signs Temperature: 97.1 F Pulse Rate: 73 Blood Pressure: 73/46 Respiratory Rate: 16 Pulse Ox: 100 Oxygen Delivery Method: Room Air Assessment Airway patent: Yes Spontaneous unlabored respirations: Yes Mental status: Asleep nausea: No Vomiting: No Anesthesia Complication: No Fluid Hydration Crystalloid volume administer (ml): 500 Total IV fluid infused: 500 Progress Note Anesthesia document: Postop Eval 1 completed: Yes
--- NOTE | 2025-04-10 10:12 | PCM.POSTANE2 ---
Anesthesia Postop Eval I Sum Postop Eval Completion status Anesthesia document: Postop Eval 1 completed: Yes Anesthesia Postop Eval I Summary Anesthesia Postop Eval I Summary: Anesthesia Postop Eval I: Assessment Summary Airway patent Yes 04/10/25 09:43 [email or web address] Spontaneous unlabored Yes 04/10/25 09:43 [email or web address] respirations Mental status Asleep 04/10/25 09:43 [email or web address] nausea No 04/10/25 09:43 [email or web address] Vomiting No 04/10/25 09:43 [email or web address] Anesthesia Postop Eval I: Fluid Summary Crystalloid volume administer 500 04/10/25 09:43 [email or web address] (ml) Colloids volume administered ( ml) Blood Product volume administered (ml) Total IV fluid infused 500 04/10/25 09:43 [email or web address] Anesthesia Postop Eval I: Summary Notes Anesthesia Complication No 04/10/25 09:43 [email or web address] Anesthesia Complication Comment: Post-operative progress note Anesthesia: Postop Eval II Evaluation Mental status: Awake Pain Level: 0 nausea: No Vomiting: No
== END 2025-04-10 10:13 | disposition home or self-care (01) ==
LOC: EN 08:10 → AC 08:12
PROVIDERS: PCP Internal Medicine; Referring Provider Internal Medicine; Visit Provider Internal Medicine Gastroenterology
PROC: 0DJD8ZZ Inspection of Lower Intestinal Tract, Via Natural or Artificial Opening Endoscopic (ICD-10-PCS; CPT 45378; principal; 2025-04-10 08:40)
DX: Z12.11 Encounter for screening for malignant neoplasm of colon (principal); Z89.512 Acquired absence of left leg below knee; E10.42 Type 1 diabetes mellitus with diabetic polyneuropathy; Z79.4 Long term (current) use of insulin; K22.70 Barrett's esophagus without dysplasia; K44.9 Diaphragmatic hernia without obstruction or gangrene; I10 Essential (primary) hypertension; Z96.41 Presence of insulin pump (external) (internal); K57.30 Diverticulosis of large intestine without perforation or abscess without bleeding; Z79.899 Other long term (current) drug therapy; E78.5 Hyperlipidemia, unspecified; R10.9 Unspecified abdominal pain; K21.9 Gastro-esophageal reflux disease without esophagitis; Z86.73 Personal history of transient ischemic attack (TIA), and cerebral infarction without residual deficits; F32.A Depression, unspecified; E03.9 Hypothyroidism, unspecified; Z79.890 Hormone replacement therapy; Z98.41 Cataract extraction status, right eye; Z98.42 Cataract extraction status, left eye; F17.210 Nicotine dependence, cigarettes, uncomplicated; R11.0 Nausea; K83.8 Other specified diseases of biliary tract; K31.89 Other diseases of stomach and duodenum
CPT/HCPCS: 44361; 45378; 82962; 88305; J2405

== ENCOUNTER 2025-06-01 07:04 | Observation (INO) | payer MEDICARE, MEDICAID, SELFPAY ==
--- NOTE | 2025-05-31 09:50 | PAT.ANESEVAL ---
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 When Was Last Pacemaker Check QUESTION #4 FULL TEXT: You/Your Family Experience fever (hyperthermia) with Anesthesia Last Oral Intake Last Oral intake: Last Oral Intake NPO since Meds taken in AM with sips of water? Meds patient instructed to take am of surgery PONV PONV - marine safety officer: PONV - marine safety officer Female No 05/31/25 08:34 HX of Motion Sickness No 05/31/25 08:34 HX of N/V After Surgery No 05/31/25 08:34 Non-Smoker No 05/31/25 08:34 Duration of Surgery greater No 05/31/25 08:34 than 60 minutes Number of Risk Factors PONV Score Height & Weight Height & Weight: Anesthesia: Height & Weight Height 5 ft 9 in 04/10/25 08:47 Respiratory Assessment Respiratory Assessment - marine safety officer: Respiratory Tract Infection Hx - marine safety officer Hx Respiratory Tract Infection No 05/31/25 08:34 STOP Sleep Apnea STOP Sleep Apnea - marine safety officer: STOP Sleep Apnea - marine safety officer Hx Hypertension Yes 05/31/25 08:34 Hx Sleep Apnea No 05/31/25 08:34 CPAP No 05/31/25 08:34 BIPAP No 05/31/25 08:34 Do you snore loudly (louder No 05/31/25 08:34 than talking or can be heard Do you often feel tired/ No 05/31/25 08:34 fatigued/ sleepy during daytime? Has anyone observed you stop No 05/31/25 08:34 breathing during sleep? STOP Results Negative 05/31/25 08:34 QUESTION #5 FULL TEXT : Do you snore loudly (louder than talking or can be heard through closed doors)? 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 Specify any problems Hx of Preganancy in last 3 N/A 05/31/25 08:34 Months Nurse Filling Out Transfusion NBUCHER 05/31/25 08:34 & Questions: Date: 05/31/25 05/31/25 08:34 Time: 08:35 05/31/25 08:34 Patient unable to answer at this time (ie. confused, unrespo /Reproduction History /Reproductive History - marine safety officer: /Reproductive Hx- marine safety officer Hx Now Gestational Age (in weeks): EDC: Hx Hx Para Hx Section SAB No 05/31/25 08:34 Does the father of the baby or his family experience fever w Father of the baby Malignant Hypertension history comment [facility] Medical History History of echocardiogram Tunneled central venous catheter present Acute hypoxic respiratory failure DIYA (acute kidney injury) Nausea and vomiting Transaminitis Leukocytosis Altered mental status Acute renal failure Dehydration Counseling for insulin pump Hyperlipidemia Insulin pump titration Presence of insulin pump Vitamin D insufficiency Hyperkalemia Vitamin D deficiency Overweight Cough 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 Tobacco use disorder Polyneuropathy due to type 1 diabetes mellitus Wound discharge MRSA infection Marijuana use Thyroid disease Insulin dependent diabetes mellitus Arthritis Uses wheelchair Bladder disease Injury of back Difficulty chewing Dietary restriction Amputation of left lower extremity below knee Type 1 diabetes Current use of insulin Back pain due to injury Stroke Restless legs History of stress test Gastroparesis Vision loss of right eye Vision loss of left eye Hearing loss, left Hearing loss, right Anemia Substance abuse Alcohol abuse Anxiety Depression Hypothyroidism Diabetes Chronic pain Rheumatoid arthritis Osteoporosis Pancreatitis GERD (gastroesophageal reflux disease) Hepatitis Smoker Asthma Chest pain Hypertension Migraines Seizures DKA (diabetic ketoacidoses) Charcot foot due to diabetes mellitus Charcot ankle Neuropathy Cellulitis (~09/15/21) Diabetes mellitus Home Medications ?Medication ?Instructions ?Recorded ?Last Taken ?Type sertraline 50 mg tablet (Zoloft) 50 mg PO DAILY depression 03/05/22 06/18/22 History amitriptyline 25 mg tablet 25 mg PO QHS sleep 06/17/22 06/18/22 History blood sugar diagnostic (OneTouch #100 ea 05/02/24 Unknown Rx Verio test strips) blood-glucose meter (OneTouch #1 ea 05/02/24 Unknown Rx Verio Reflect Meter) insulin pump cartridge,automated 01/08/25 Unknown History dose,BT with controller subcutaneous amlodipine 10 mg tablet 10 mg PO DAILY #0 tabs 01/23/25 Unknown Rx hydralazine 50 mg tablet 50 mg PO TID #0 tabs 01/23/25 Unknown Rx metoprolol succinate 25 mg 25 mg PO DAILY #0 tabs 01/23/25 Unknown Rx tablet,extended release 24 hr blood-glucose sensor (FreeStyle #2 ea 01/26/25 Unknown Rx Maikel 2 Plus Sensor device) atorvastatin 40 mg tablet 40 mg PO QDAY 02/08/25 Unknown History lisinopril 40 mg tablet 40 mg PO QDAY 02/08/25 02/22/25 History pantoprazole 40 mg tablet,delayed 40 mg PO BID 02/08/25 02/22/25 History release ondansetron 4 mg disintegrating 4 mg PO Q8H PRN nausea and 02/15/25 Unknown Rx tablet vomiting #30 tabs levothyroxine 25 mcg tablet 25 mcg PO DAILY thyroid #90 tabs 02/17/25 02/22/25 Rx gabapentin 100 mg capsule 100 mg PO QDAY 02/23/25 Unknown History peg 3350-electrolytes 236 240 ml PO Q10M #4,000 mL 02/23/25 Unknown Rx gram-22.74 gram-6.74 gram-5.86 gram solution (Golytely) insulin lispro 100 unit/mL 40 unit (0.4 mL) continuous 03/09/25 Unknown Rx subcutaneous solution (Humalog subcutaneous infusion .continuous U-100 Insulin) #12 mL insulin pump cart,auto,BT,G6/L #15 ea 05/31/25 Unknown Rx (Omnipod 5 (G6/Maikel 2 Plus) subcutaneous cartridge) Allergy/AdvReac Type Severity Reaction Status Date / Time No Known Allergies Allergy Verified 05/31/25 08:32 Family History Other Cancer Diabetes Heart disease Surgical History S/P dialysis catheter insertion History of bilateral cataract extraction H/O tooth extraction History of left below knee amputation Social History Smoking Status: Current every day smoker tobacco type: cigarettes Audit: Pertinent Findings Pertinent Findings EKG Perinent findings: Normal sinus rhythm Septal infarct (cited on or before 15-Sep-2021) Abnormal ECG When compared with ECG of 07-Jan-2025 16:18, T wave inversion no longer evident in Anterior leads Confirmed by CHADWICK SNELL MD ([id number]), photo editor BILL MURRAY ([id number]) on 01/18/2025 1:53:13 PM Echo (EF%) pertinent findings: 12/2024: EF 65%, normal LV size, Stage 1 diastolic dysfxn Recommendation Anesthesia Recommendation Anesthesia recommendation: OPTIMIZED for anesthesia
[2025-05-31 13:30] VITALS: BP 130/78; PULSE 91; RESP 16; TEMP 36.4; O2SAT 100
--- NOTE | 2025-05-31 13:37 | CON.PCM.GI_ITS ---
HPI Consult Data Date of Consult: 05/31/25 HPI Narrative Reason for Consultation: Diarrhea HPI Narrative: TORI CANTOR, is a 50 M who presents for the evaluation of diarrhea. He had an attempted colonoscopy as an outpatient but due to his inability to move because of a BKA he cannot prep appropriately. He presented to the office with with gastrointestinal issues, including significant cramping in the abdominal region. These symptoms began following a period of hospitalization for kidney failure, from which he has since recovered. Post-discharge, the patient experienced severe stomach pain and initially required the use of ondansetron with meals; this medication is no longer needed. In addition to current gastrointestinal complaints, the patient reports prior difficulties following an episode of aspiration pneumonia during his hospitalization, which necessitated dietary modifications under supervision. Since this episode, he has transitioned back to solids with no current issues swallowing. The patient is overdue for a colonoscopy, with his last attempt 2.5 years ago being unsuccessful due to dietary non-compliance during the preparation phase. His family history is significant for potential colon cancer, having lost his father recently to an abdominal condition that may have involved malignancy, as well as mention of affected uncles. Bowel [facility] have shifted [facility], to now having regular, formed bowel movements at least once daily. Previously, he would go weeks without a bowel movement, combined with bouts of indigestion and a necessity for twice-daily pantoprazole due to diagnosed GERD and Evans's esophagus. Despite an enlarged liver and dilated bile duct identified in a previous ultrasound in December, there are no reported episodes of gross blood or evidence of hepatic decompensation. The patient has a past medical history of Type 1 Diabetes, managed with an insulin pump, although dexterity issues from neuropathy complicate self-m anagement, especially with recent limb amputation. Social history reveals a longstanding history of cannabis use, previously more significant substance use including a resolved Hepatitis C infection, and alcohol use confined to a non- abusive social context in recent years. He is currently a tobacco smoker.] [facility] Medical History History of echocardiogram Tunneled central venous catheter present Acute hypoxic respiratory failure DIYA (acute kidney injury) Nausea and vomiting Transaminitis Leukocytosis Altered mental status Acute renal failure Dehydration Counseling for insulin pump Hyperlipidemia Insulin pump titration Presence of insulin pump Vitamin D insufficiency Hyperkalemia Vitamin D deficiency Overweight Cough 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 Tobacco use disorder Polyneuropathy due to type 1 diabetes mellitus Wound discharge MRSA infection Marijuana use Thyroid disease Insulin dependent diabetes mellitus Arthritis Uses wheelchair Bladder disease Injury of back Difficulty chewing Dietary restriction Amputation of left lower extremity below knee Type 1 diabetes Current use of insulin Back pain due to injury Stroke Restless legs History of stress test Gastroparesis Vision loss of right eye Vision loss of left eye Hearing loss, left Hearing loss, right Anemia Substance abuse Alcohol abuse Anxiety Depression Hypothyroidism Diabetes Chronic pain Rheumatoid arthritis Osteoporosis Pancreatitis GERD (gastroesophageal reflux disease) Hepatitis Smoker Asthma Chest pain Hypertension Migraines Seizures DKA (diabetic ketoacidoses) Charcot foot due to diabetes mellitus Charcot ankle Neuropathy Cellulitis (~09/15/21) Diabetes mellitus Home Medications ?Medication ?Instructions ?Recorded ?Last Taken ?Type sertraline 50 mg tablet (Zoloft) 50 mg PO DAILY depres tania 03/05/22 06/18/22 History amitriptyline 25 mg tablet 25 mg PO QHS sleep 06/17/22 06/18/22 History blood sugar diagnostic (OneTouch #100 ea 05/02/24 Unkn own Rx Verio test strips) blood-glucose meter (OneTouch #1 ea 05/02/24 Unknown R x Verio Reflect Meter) insulin pump cartridge,automated 01/08/25 Unknown His tory dose,BT with controller subcutaneous amlodipine 10 mg tablet 10 mg PO DAILY #0 tabs 01/23 Unknown Rx hydralazine 50 mg tablet 50 mg PO TID #0 tabs 5 Unknown Rx metoprolol succinate 25 mg 25 mg PO DAILY #0 tabs 02/10 Unknown Rx tablet,extended release 24 hr blood-glucose sensor (FreeStyle #2 ea 01/26/25 Unknown Rx Maikel 2 Plus Sensor device) atorvastatin 40 mg tablet 40 mg PO QDAY 02/08/25 Unkno wn History lisinopril 40 mg tablet 40 mg PO QDAY 02/08/2502/22 History pantoprazole 40 mg tablet,delayed 40 mg PO BID 5 02/22/25 History release ondansetron 4 mg disintegrating 4 mg PO Q8H PRN nausea and 02/15/25 Unknown Rx tablet vomiting #30 tabs levothyroxine 25 mcg tablet 25 mcg PO DAILY thyroid #9 0 tabs 02/17/25 02/22/25 Rx gabapentin 100 mg capsule 100 mg PO QDAY 02/23/25 Unkn own History peg 3350-electrolytes 236 240 ml PO Q10M #4,000 mL 02/10 Unknown Rx gram-22.74 gram-6.74 gram-5.86 gram solution (Golytely) insulin lispro 100 unit/mL 40 unit (0.4 mL) continuous 03/09/25 Unknown Rx subcutaneous solution (Humalog subcutaneous infusion . continuous U-100 Insulin) #12 mL insulin pump cart,auto,BT,G6/L #15 ea 05/31/25 Unknown Rx (Omnipod 5 (G6/Maikel 2 Plus) subcutaneous cartridge) Allergy/AdvReac Type Severity Reaction Status Date / Time No Known Allergies Allergy Verified 05/31/25 08:32 Family History Other Cancer Diabetes Heart disease Surgical History S/P dialysis catheter insertion History of bilateral cataract extraction H/O tooth extraction History of left below knee amputation Social History Smoking Status: Current every day smoker tobacco type: cigarettes ROS Constitutional Constitutional: Denies fatigue, fever(s), poor appetite, weight gain or weight loss Gastrointestinal Gastrointestinal: Denies belching, bloating, change in bowel habits, change in stool character, chewing difficulty, coffee ground emesis, constipation, cramping, diarrhea, dyspepsia, dysphagia, early satiety, excessive flatus, fecal incontinence, heartburn, hematemesis, hematochezia, hemorrhoids, loose stools, melena, nausea, odynophagia, rectal bleeding, tenesmus, vomiting or weight changes Physical Exam Const alert, oriented x3, no apparent distress and healthy appearing General Appearance: cooperative GI normal to inspection, nondistended, normoactive bowel sounds, soft to palpation, non-tender and non-distended Percussion: normal to percussion Rectal Exam: deferred Assessment & Plan Assessment/Plan (1) Abdominal pain: (2) Nausea: (3) Encounter for screening colonoscopy: (4) Evans's esophagus: PLAN: Assessment and Plan Assessment and Plan (1) diarrhea (2) Encounter for screening colonoscopy: Status: Acute Plan: Colonoscopy - GoLytely (3) Abdominal pain: Status: Acute (4) Nausea: Status: Acute Orders: Orders MRCP Abdomen without Contrast Today K22.70 - Evans's esophagus without dysplasia, K83.8 - Other specified diseases of biliary tract Medications: New peg 3350-electrolytes 236-22.74-6.74 -5.86 gram (Golytely) as directed for split dose bowel prep 240 mL PO Q10M 4,000 mL 0RF Plan 49y/o male presents for consultation of abdominal pain. His PMH is significant for HTN, CVA, Hypothyroidism, Asthma, DM (poorly controlled), alcohol abuse, HCV (Tx. Epclusa 2022), Evans's, Gastroparesis, GERD, Seizures, Pancreatitis, Neuropathy, Left BKA. Last seen at [facility] by Destinee Galvan, October 2022 after completion of 12 week course of Epclusa for HCV. Recent admission with acute hypoxic respiratory failure, DKA, DIYA secondary to ischemic ATN in the setting of DKA and hypotension-requiring hemodialysis. He complains of severe abdominal cramping, abdominal pain, nausea with resolving diarrhea. ABD US revealed hepatomegaly and dilated CBD (8mm). I have scheduled him for an MRCP, EGD and colonoscopy. We will obtain recent labs performed by PCP and he will complete [facility] stool tetsing. Patient Instructions: - I will put the prep in for colonoscopy. He can have clear liquids today. - Charges/Coding Visit Charges Inpatient E&M: 86131 Init Hosp L3
--- NOTE | 2025-05-31 13:44 | PCM.HP.STD ---
HPI - General General Date of Admission: 05/31/25 Date of Service: 05/31/25 Chief Complaint: for colonoscopy HPI Narrative TORI CANTOR, is a 50 M with a PMH as outlined who was admitted as a direct admit to the hospitalist service for colonoscopy prep. Patient lives alone at home and has right-sided BKA. He is due for an elective colonoscopy tomorrow but this would be difficult for him to undergo the prep as he lives alone and is not able to get to the toilet quickly. He was therefore brought in to have the colonoscopy prep in the hospital for the colonoscopy tomorrow. Patient seen and examined. He had no active complaints apart from chronic abdominal pain. He denied any nausea, vomiting, fever or chills. Review of systems is otherwise negative. Vitals at time of review were temperature of 97.5 Fahrenheit, blood pressure 130/78, pulse rate of 91 and respiratory rate of 16. He was saturating at 100% on room air. CBC showed hemoglobin of 12.2 with WBC of 6.5 and platelets of 191. BMP was pending. He has been admitted for elective colonoscopy to have prep in the hospital. [facility] Medical History History of echocardiogram Tunneled central venous catheter present Acute hypoxic respiratory failure DIYA (acute kidney injury) Nausea and vomiting Transaminitis Leukocytosis Altered mental status Acute renal failure Dehydration Counseling for insulin pump Hyperlipidemia Insulin pump titration Presence of insulin pump Vitamin D insufficiency Hyperkalemia Vitamin D deficiency Overweight Cough 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 Tobacco use disorder Polyneuropathy due to type 1 diabetes mellitus Wound discharge MRSA infection Marijuana use Thyroid disease Insulin dependent diabetes mellitus Arthritis Uses wheelchair Bladder disease Injury of back Difficulty chewing Dietary restriction Amputation of left lower extremity below knee Type 1 diabetes Current use of insulin Back pain due to injury Stroke Restless legs History of stress test Gastroparesis Vision loss of right eye Vision loss of left eye Hearing loss, left Hearing loss, right Anemia Substance abuse Alcohol abuse Anxiety Depression Hypothyroidism Diabetes Chronic pain Rheumatoid arthritis Osteoporosis Pancreatitis GERD (gastroesophageal reflux disease) Hepatitis Smoker Asthma Chest pain Hypertension Migraines Seizures DKA (diabetic ketoacidoses) Charcot foot due to diabetes mellitus Charcot ankle Neuropathy Cellulitis (~09/15/21) Diabetes mellitus Home Medications ?Medication ?Instructions ?Recorded ?Last Taken ?Type sertraline 50 mg tablet (Zoloft) 50 mg PO DAILY depression 03/05/22 06/18/22 History amitriptyline 25 mg tablet 25 mg PO QHS sleep 06/17/22 06/18/22 History blood sugar diagnostic (OneTouch #100 ea 05/02/24 Unknown Rx Verio test strips) blood-glucose meter (OneTouch #1 ea 05/02/24 Unknown Rx Verio Reflect Meter) insulin pump cartridge,automated 01/08/25 Unknown History dose,BT with controller subcutaneous amlodipine 10 mg tablet 10 mg PO DAILY #0 tabs 01/23/25 Unknown Rx hydralazine 50 mg tablet 50 mg PO TID #0 tabs 01/23/25 Unknown Rx metoprolol succinate 25 mg 25 mg PO DAILY #0 tabs 01/23/25 Unknown Rx tablet,extended release 24 hr blood-glucose sensor (FreeStyle #2 ea 01/26/25 Unknown Rx Maikel 2 Plus Sensor device) atorvastatin 40 mg tablet 40 mg PO QDAY 02/08/25 Unknown History lisinopril 40 mg tablet 40 mg PO QDAY 02/08/25 02/22/25 History pantoprazole 40 mg tablet,delayed 40 mg PO BID 02/08/25 02/22/25 History release ondansetron 4 mg disintegrating 4 mg PO Q8H PRN nausea and 02/15/25 Unknown Rx tablet vomiting #30 tabs levothyroxine 25 mcg tablet 25 mcg PO DAILY thyroid #90 tabs 02/17/25 02/22/25 Rx gabapentin 100 mg capsule 100 mg PO QDAY 02/23/25 Unknown History peg 3350-electrolytes 236 240 ml PO Q10M #4,000 mL 02/23/25 Unknown Rx gram-22.74 gram-6.74 gram-5.86 gram solution (Golytely) insulin lispro 100 unit/mL 40 unit (0.4 mL) continuous 03/09/25 Unknown Rx subcutaneous solution (Humalog subcutaneous infusion .continuous U-100 Insulin) #12 mL insulin pump cart,auto,BT,G6/L #15 ea 05/31/25 Unknown Rx (Omnipod 5 (G6/Maikel 2 Plus) subcutaneous cartridge) Allergy/AdvReac Type Severity Reaction Status Date / Time No Known Allergies Allergy Verified 05/31/25 08:32 Family History Other Cancer Diabetes Heart disease Surgical History S/P dialysis catheter insertion History of bilateral cataract extraction H/O tooth extraction History of left below knee amputation Social History Smoking Status: Current every day smoker tobacco type: cigarettes ROS Constitutional Constitutional: Denies anorexia, chills, fatigue, fever(s), malaise or weakness Eyes Eyes: Denies change in vision ENT HEENT: Denies dysphagia, headache(s) or sore throat Cardiovascular Cardiovascular: Denies chest pain, dyspnea on exertion, edema, lightheadedness, orthopnea, palpitations, paroxysmal nocturnal dyspnea, rapid heart rate or syncope Gastrointestinal Gastrointestinal: Reports abdominal pain; Denies coffee ground emesis, constipation, diarrhea, dyspepsia, hematemesis, hematochezia, loose stools, nausea or vomiting Genitourinary Genitourinary: Denies dysuria Neurologic Neurologic: Denies confusion, dizziness, focal weakness, headache(s) or numbness Psychiatric Psychiatric: Denies anxiety or depression Vital Signs Vital Signs Vital Signs: 05/31/25 13:30 Temperature 97.5 F L Temperature Source Oral Pulse Rate 91 Respiratory Rate 16 Blood Pressure 130/78 H Blood Pressure Mean 95 Blood Pressure Source Monitor Blood Pressure Position Sitting Blood Pressure Location Right Arm Pulse Ox 100 Oxygen Delivery Method Room Air Physical Exam Const alert, oriented x3 and no apparent distress General Appearance: cooperative HEENT normocephalic, head/scalp atraumatic, hearing grossly normal bilaterally, moist oral mucous membranes and oropharynx normal Mouth: oral and palatal mucosa normal Eyes EOMs intact bilaterally and conjunctivae normal Neck supple and no JVD Resp normal respiratory effort, no retractions, no use of accessory muscles and clear to auscultation bilaterally Cardio regular rate, regular rhythm, S1 normal heart sound, S2 normal heart sound and no murmurs GI normal to inspection, nondistended, normoactive bowel sounds, soft to palpation, non-tender and non-distended Extremity Extremity Narrative: right BKA Neuro oriented x3, CN's II-XII intact bilaterally and no focal motor deficits Sensorium / Orientation: awake and alert Psych affect normal Results Lab / Micro Data 05/31/25 14:43 05/31/25 14:43 Assessment & Plan Assessment/Plan (1) Abdominal pain: (2) Encounter for screening colonoscopy: PLAN: Plan #Abdominal pain admitted for prep for screening colonoscopy tomorrow. Consult gastroenterology for prep to be ordered. Hemoglobin is 12.2. Keep on clear liquids for now and keep n.p.o. past midnight. Hydrate gently with IV fluids. #Hypertension: on amlodipine and hydralazine. On metoprolol and lisinopril. IV hydralazine prn #Type 2 diabetes mellitus: hold long acting insulin. ISS. Accuchekcs ACHS. #GERD with Evans's esophagus: on pantoprazole. #Depression: on sertraline. DVT prophylaxis: SCDs COde status: full code Patient counseled extensively about different types of CODE STATUS including full code, DNR CCA and DNR CCA. Patient elects to be full code. Charges/Coding Visit Charges Inpatient E&M: 53469 Init Hosp L2 D/C Safety Score for UGIB Assessment Lev-Blatchford Bleeding Score (GBS): Stratifies upper GI bleeding patients who are low-risk and candidates for outpatient management. Hemoglobin, BUN, Recent Vital Signs: Pulse Rate 91 Blood Pressure 130/78 Score Interpretation: Score of 0: A GBS of 0 is a ?Low Risk? GI bleed, and is highly sensitive (99.6% in a 2007 retrospective study) for predicting which patients did not require any ?medical intervention?: blood transfusion, endoscopy, or surgery. This was confirmed in a 2009 Lanc study where patients with a score of 0 were actually discharged and had no GI bleeding mortality at 6 month followup Score above 0: A GBS greater than zero suggests a ?High Risk? GI bleed that is likely to require ?medical intervention?: transfusion, endoscopy, or surgery. A higher GBS also correlated with a higher likelihood of needing intervention Scores >/= 6 are associated with >50% risk of needing intervention D/C Safety Score for LGIB Assessment Assessment Tool: Readmission and adverse event risk in patients with acute lower GI bleeding. Hemoglobin and Recent Vital Signs: Pulse Rate 91 05/31/25 13:30 Blood Pressure 130/78 05/31/25 13:30 Score Interpretation: Probability Percentage of safe discharge (absence of rebleeding, blood transfusion, therapeutic intervention, 28 day readmission, or ) Score of 8 or below: Consider discharge, with appropriate precautions. Score of 9 or above: Discharge NOT recommended. Consider admission with further workup and resuscitation as necessary.
[2025-05-31 13:47] VITALS: BMI 24.0
[2025-05-31] MEDS: 0.9% Normal Saline (1000mL) 1,000 ML 125 ML IV ×2 (14:23→22:23)
[2025-05-31 14:47] VITALS: BP 130/78; PULSE 91
[2025-05-31 14:55] LABS: Hematocrit 37.9 % (40-54); Hemoglobin 12.2 g/dL (13.0-16.5); Mean Corp Hgb Conc 32.2 g/dL (32-36); Mean Corpuscular Volume 85.7 fL (80-94); Mean Platelet Vol. 11.1 fl (6.2-12.0); Platelet Count 191 K/mm3 (150-450); RBC Distribution Width CV 13.4 % (11.6-14.6); RBC Distribution Width SD 41.5 fl (35.1-43.9); Red Blood Count 4.42 M/mm3 (4.6-6.2); White Blood Count 6.5 K/mm3 (4.4-11.0)
[2025-05-31] MEDS: Electrolyte Solution/Peg's 4000 ML PO (15:49)
[2025-05-31 15:57] LABS: Anion Gap 8 (5-15); BUN 23 mg/dL (4-19); BUN/Creat Ratio 24.0 RATIO (10-20); Calcium,Total 10.1 mg/dL (7.6-11.0); Carbon Dioxide 28.0 mmol/L (21.0-32.0); Chloride 100 mmol/L (98-108); Estimated Creatinine Clearance 97.98 ml/min (50-250); Glucose 186 mg/dL (70-99); Potassium 5.7 mmol/L (3.3-5.1)
[2025-05-31 21:30] VITALS: BP 134/84; PULSE 80; RESP 16; TEMP 36.5; O2SAT 100
[2025-05-31 22:48] VITALS: BP 134/84; PULSE 70
[2025-06-01] VITALS (9 sets, daily range): BP systolic 119–157; BP diastolic 78–98; PULSE 88–101; RESP 16–18; TEMP 36.5–36.8; O2SAT 98–100
[2025-06-01 04:59] LABS: Hematocrit 34.0 % (40-54); Hemoglobin 11.0 g/dL (13.0-16.5); Immature Granulocytes Count 0.000 X10^3/uL (0.0-0.0); Mean Corp Hgb Conc 32.4 g/dL (32-36); Mean Corpuscular Volume 84.4 fL (80-94); Mean Platelet Vol. 11.3 fl (6.2-12.0); NRBC Flagged by Analyzer 0 % (0-5); Platelet Count 172 K/mm3 (150-450); RBC Distribution Width CV 13.4 % (11.6-14.6); RBC Distribution Width SD 41.4 fl (35.1-43.9); Red Blood Count 4.03 M/mm3 (4.6-6.2); White Blood Count 5.2 K/mm3 (4.4-11.0)
[2025-06-01 05:36] LABS: AST(SGOT) 25 U/L (<=37); Alanine Aminotransfer ALT/SGPT 17 U/L (<=46); Albumin, Serum 3.7 g/dL (3.5-5.0); Alkaline Phosphatase 68 U/L (40-129); Anion Gap 8 (5-15); BUN 13 mg/dL (4-19); BUN/Creat Ratio 20.5 RATIO (10-20); Bilirubin, Direct 0.14 mg/dL (0.00-0.30); Calcium,Total 9.1 mg/dL (7.6-11.0); Carbon Dioxide 24.6 mmol/L (21.0-32.0); Chloride 106 mmol/L (98-108); Estimated Creatinine Clearance 143.20 ml/min (50-250); Globulin 2.3 g/dL (2.2-4.2); Glucose 158 mg/dL (70-99); Potassium 4.2 mmol/L (3.3-5.1)
--- NOTE | 2025-06-01 05:55 | EKG12_ITS ---
Test Reason : PRE OP Blood Pressure : */* mmHG Vent. Rate : 97 BPM Atrial Rate : 97 BPM P-R Int : 174 ms QRS Dur : 76 ms QT Int : 366 ms P-R-T Axes : 61 -20 18 degrees QTcB Int : 464 ms Normal sinus rhythm Septal infarct (cited on or before 15-Sep-2021) Abnormal ECG When compared with ECG of 18-Jan-2025 05:31, Nonspecific T wave abnormality no longer evident in Inferior leads Confirmed by KATARINA GUY, LIZETTE ([id number]), publications editor RAMÍREZ TEAGUE ([id number]) on 06/05/2025 9:29:40 AM Referred By: Jah Rey Confirmed By: LIZETTE BRAY MD
[2025-06-01] MEDS: Metoprolol(XL)Succ 25 MG Tablet PO (07:44)
[2025-06-01] MEDS: Electrolyte Solution/Peg's 4000 ML PO (08:11)
--- NOTE | 2025-06-01 10:45 | PN_ITS ---
Subjective Subjective Patient seen and examined with his nurse by his bedside. He was still undergoing the colonoscopy prep and complained of the number of times he had had to use the commode. Review of systems otherwise negative he has remained hemodynamically stable. Objective Data Objective Data Vital Signs: Vital Signs Temp Pulse Resp BP Pulse Ox O2 Del Method 97.7 F L 95 16 119/78 100 Room Air 06/01/25 09:01 06/01/25 09:01 06/01/25 09:01 06/01/25 09:01 06/01/25 09:01 06/01/25 09:01 Oxygen Delivery Method Room Air Weight: 172 lb Body Mass Index (BMI) 24.0 Intake & Output: Intake and Output for Last 24 Hours 05/30/25 05/31/25 06/01/25 23:59 23:59 23:59 Intake Total 3000 / 3000 1000 / 1000 Output Total 1750 / 1750 350 / 350 Balance 1250 / 1250 650 / 650 Lab / Micro Data 06/01/25 03:46 06/01/25 03:46 Labs: Laboratory Results - last 24 hr 05/31/25 14:43: WBC 6.5, RBC 4.42 L, Hgb 12.2 L, Hct 37.9 L, MCV 85.7, MCH 27.6, MCHC 32.2, RDW Std Deviation 41.5, RDW Coeff of Candace 13.4, Plt Count 191, MPV 11.1, Sodium 136, Potassium 5.7 H, Chloride 100, Carbon Dioxide 28.0, Anion Gap 8, BUN 23 H, Creatinine 0.95, Estim Creat Clear Calc 97.98, Est GFR (MDRD) Non- Af 96, BUN/Creatinine Ratio 24.0 H, Glucose 186 H, Calcium 10.1 06/01/25 03:46: WBC 5.2, RBC 4.03 L, Hgb 11.0 L, Hct 34.0 L, MCV 84.4, MCH 27.3, MCHC 32.4, RDW Std Deviation 41.4, RDW Coeff of Candace 13.4, Plt Count 172, MPV 11.3, Immature Gran % (Auto) 0.000, Neut % (Auto) 36.6 L, Lymph % (Auto) 41.3 H, [place] % (Auto) 12.9 H, Eos % (Auto) 7.3 H, Baso % (Auto) 1.9 H, Absolute Neuts (auto) 1.9 L, Absolute Lymphs (auto) 2.14, Nucleated RBC % 0, Sodium 139, Potassium 4.2, Chloride 106, Carbon Dioxide 24.6, Anion Gap 8, BUN 13, C reatinine 0.65 L, Estim Creat Clear Calc 143.20, Est GFR (MDRD) Non-Af 114, B UN/Creatinine Ratio 20.5 H, Glucose 158 H, Hemoglobin A1c 10.8 H, Calcium 9.1, Total Bilirubin 0.24, Direct Bilirubin 0.14, AST 25, ALT 17, Alkaline Phosphatase 68, Total Protein 5.9, Albumin 3.7, Globulin 2.3 Physical Exam Const alert, oriented x3 and no apparent distress General Appearance: cooperative HEENT normocephalic, head/scalp atraumatic, hearing grossly normal bilaterally, moist oral mucous membranes and oropharynx normal Eyes EOMs intact bilaterally and conjunctivae normal Neck supple and no JVD Resp normal respiratory effort, no retractions, no use of accessory muscles and clear to auscultation bilaterally Cardio regular rate, regular rhythm, S1 normal heart sound, S2 normal heart sound and no murmurs GI normal to inspection, nondistended, normoactive bowel sounds, soft to palpation, non-tender and non-distended Extremity Extremity Narrative: right BKA Neuro oriented x3, CN's II-XII intact bilaterally and no focal motor deficits Sensorium / Orientation: awake and alert Psych affect normal Appearance: appropriate Assessment & Plan Assessment/Plan (1) Abdominal pain: (2) Encounter for screening colonoscopy: PLAN: Plan #Abdominal pain * admitted for prep for screening colonoscopy tomorrow. * Undergoing prep for colonoscopy today. Hemoglobin is 12.2. * currently NPO . FOr colonoscopy today. #Hypertension: on amlodipine and hydralazine. On metoprolol and lisinopril. IV hydralazine prn #Type 2 diabetes mellitus: hold long acting insulin. ISS. Accuchekcs ACHS. A1C is 10.8 #GERD with Evans's esophagus: on pantoprazole. #Depression: on sertraline. DVT prophylaxis: SCDs COde status: full code * Charges/Coding Visit Charges Inpatient E&M: 43560 Subs Hosp L2
--- NOTE | 2025-06-01 14:07 | NURSING ---
notified endo that pt stool was clear and ready for colonoscopy. endo nursing was going to talk with dr rome to find out when he will have procedure done. reminded endo nursing that pt was npo and a type 1 diabetic. endo stated they would call back with time for procedure
--- NOTE | 2025-06-01 15:42 | CHAPLAIN ---
Type of Pastoral Visit _x__ Initial Visit ___ Follow-up Visit ___ On-call Visit ___ General Patient Visit ___ Spiritual Assessment ___ Family Conference ___ Bereavement ___ Rapid Response ___ Code Blue ___ Other (describe below) Pastoral Care Referral From _x__ Patient ___ Family ___ Nurse ___ Physician ___ Hospice Clinical Marketer ___ Straightedge Machine Operator Helper ___ Other (describe below) Sacrament/Intervention _x__ Active listening ___ Anointing ___ Jainism ___ Bereavement ___ Communion ___ Leatha exploration ___ _x__ Life review _x__ Prayer ___ Reconciliation ___ Sacrament of Sick _x__ Supportive presence ___ Wedding ___ Other (describe below) Pastoral Comments patient was seen several years ago and this visit was a time to give update on his life, his loss of father and aunt this year, and the developments of his health; pt has some coughing episodes so he is encouraged to take the time and slowly converse; pt is welcoming of a prayer; more time given to be present and to offer support given in his journey
[2025-06-01] MEDS: 0.9% Saline Lock 10 ML Syringe IV (21:56)
[2025-06-02] VITALS (15 sets, daily range): BP systolic 117–167; BP diastolic 67–104; PULSE 106–124; RESP 16–24; TEMP 36.4–37; O2SAT 99–100; BMI 24.0
--- NOTE | 2025-06-02 05:00 | EKG12_ITS ---
Test Reason : CP Blood Pressure : */* mmHG Vent. Rate : 107 BPM Atrial Rate : 107 BPM P-R Int : 152 ms QRS Dur : 88 ms QT Int : 362 ms P-R-T Axes : 76 -14 82 degrees QTcB Int : 483 ms Sinus tachycardia Minimal voltage criteria for LVH, may be normal variant ( Sokolow-Torres ) Anteroseptal infarct , age undetermined Abnormal ECG When compared with ECG of 01-Jun-2025 05:49, MANUAL COMPARISON REQUIRED DATA IS UNCONFIRMED Confirmed by KATARINA GUY, LIZETTE ([id number]), photo editor RAMÍREZ TEAGUE ([id number]) on 06/05/2025 9:28:58 AM Referred By: Jah Rey Confirmed By: LIZETTE BRAY MD
--- NOTE | 2025-06-02 05:08 | PCM.HOSP.N ---
Hospitalist Note Patient with onset 10/10 chest pain, EKG with ST, will obtain troponin. Will administer SL NG and morphine.
[2025-06-02] MEDS: Nitroglycerin (INPATIENT USE) 0.4 MG TAB.SUBL SL (05:21)
[2025-06-02] MEDS: 0.9% Saline Lock 10 ML Syringe IV ×2 (05:32→05:41)
[2025-06-02 06:23] LABS: Troponin T High Sensitivity 64 ng/L (<=22)
--- NOTE | 2025-06-02 07:44 | ECHOL_ITS ---
Reason For Study Reason For Study: CHEST PAIN Procedure This was a limited 2D transthoracic echocardiogram. Exam performed portable in patient room. Left Ventricle Normal LV size. The estimated ejection fraction is 75 %. No evidence for diastolic dysfunction. No regional wall motion abnormalities noted. Right Ventricle Normal RV size. Normal systolic function. Atria The left and right atria are normal. No doppler evidence for ASD. Mitral Valve There is no mitral valve stenosis. Trivial mitral valve insufficiency. Tricuspid Valve There is no tricuspid stenosis. Trivial tricuspid valve insufficiency. Unable to estimate RV systolic pressure due to insufficient tricuspid regurgitant envelope. Aortic Valve Trisinus/trileaflet aortic valve. There is no aortic stenosis. No aortic valve insufficiency. Pulmonic Valve There is no pulmonic valvular stenosis. No pulmonic valve insufficiency. Great Vessels Normal sized aortic root. Pericardium/Pleural No pericardial effusion. MMode/2D Measurements & Calculations LVIDd: 4.3 cm IVSd: 0.74 cm LAV(MOD- bp): 38.3 ml LVIDs: 1.9 cm LVPWd: 0.84 cm LAV(MOD- bp) Indexed: 19.3 ml/m2 FS: 55.0 % LAV(MOD- sp2): 38.0 ml LAV(MOD- sp4): 34.9 ml SV(MOD- sp4): 65.7 ml LVAd ap4: 32.2 cm2 LVAd ap2: 34.5 cm2 LVLd ap4: 9.0 cm LVLd ap2: 9.6 cm SI(MOD- sp4): 33.2 ml/m2 EDV(MOD-sp4): 90.5 ml EDV(MOD-sp2): 99.8 ml EDV(sp4-el): 97.2 ml EDV(sp2-el): 105.4 ml LVAs ap4: 14.0 cm2 LVAs ap2: 14.5 cm2 LVLs ap4: 7.4 cm LVLs ap2: 7.1 cm ESV(MOD-sp4): 24.8 ml ESV(MOD-sp2): 28.4 ml ESV(sp4-el): 22.2 ml ESV(sp2-el): 25.0 ml EF(MOD-sp4): 72.5 % EF(MOD-sp2): 71.5 % EF(sp4-el): 77.1 % SV(MOD-sp2): 71.4 ml SV(sp4-el): 75.0 ml LA A4 area: 14.7 cm2 SI(MOD-sp2): 36.1 ml/m2 TAPSE: 2.4 cm RA A4 area: 11.7 cm2 Doppler Measurements & Calculations Lat Peak E' Cedrick: 14.0 cm/sec Med Peak E' Cedrick: 11.4 cm/sec ECHO/Echo, Limited Study Interpretation Summary The estimated ejection fraction is 75 %. No evidence for diastolic dysfunction. Trivial mitral valve insufficiency. Ordering Physician: Mónica Miranda Referring Physician: Jah Rey Performed By: Donal Nixon, RDANGIE
[2025-06-02 08:33] LABS: Hematocrit 36.9 % (40-54); Hemoglobin 12.1 g/dL (13.0-16.5); Immature Granulocytes Count 0.060 X10^3/uL (0.0-0.0); Mean Corp Hgb Conc 32.8 g/dL (32-36); Mean Corpuscular Volume 85.6 fL (80-94); Mean Platelet Vol. 11.9 fl (6.2-12.0); NRBC Flagged by Analyzer 0 % (0-5); Platelet Count 187 K/mm3 (150-450); RBC Distribution Width CV 13.4 % (11.6-14.6); RBC Distribution Width SD 41.8 fl (35.1-43.9); Red Blood Count 4.31 M/mm3 (4.6-6.2); White Blood Count 12.1 K/mm3 (4.4-11.0)
[2025-06-02 09:03] LABS: Troponin T High Sens 2 HR 71 ng/L (<=22)
[2025-06-02 09:04] LABS: Anion Gap 22 (5-15); BUN 20 mg/dL (4-19); BUN/Creat Ratio 20.2 RATIO (10-20); Calcium,Total 9.8 mg/dL (7.6-11.0); Carbon Dioxide 15.4 mmol/L (21.0-32.0); Chloride 98 mmol/L (98-108); Estimated Creatinine Clearance 92.16 ml/min (50-250); Glucose 332 mg/dL (70-99); Potassium 4.6 mmol/L (3.3-5.1)
--- NOTE | 2025-06-02 09:37 | CASEMGMT ---
CORDON Met with patient to complete CORDON form. CORDON form and its content were verbally explained and patient's questions were answered to the best of my ability.? Patient voiced understanding and signed CORDON form.? Patient provided a copy of signed CORDON form and original placed in patient's chart.? Patient had no further questions. Siobhan Song, Discharge Planning Asst
[2025-06-02 12:13] LABS: Troponin T High Sens 4 HR 62 ng/L (<=22)
--- NOTE | 2025-06-02 12:33 | NURSING ---
AC notified of 3rd trop and echo results- state they will inform anesthesia.
[2025-06-02] MEDS: Lactated Ringers 1,000 ML 15 ML IV (14:45)
--- NOTE | 2025-06-02 14:51 | PN_ITS ---
Subjective Subjective Patient seen and examined. His nurse was by his bedside. Patient complained of chest pain in the early hours of today and initial troponin was 54. Repeat troponin had gone up to 162 so 2D echo ordered. He denies any chest pain at this point in time. Review of systems otherwise negative. Objective Data Objective Data Vital Signs: Vital Signs Temp Pulse Resp BP Pulse Ox O2 Del Method 98.6 F 124 H 20 H 157/74 H 100 Room Air 06/02/25 13:52 06/02/25 13:52 06/02/25 13:52 06/02/25 13:52 06/02/25 13:52 06/02/25 13:52 Oxygen Delivery Method Room Air Weight: 172 lb Body Mass Index (BMI) 24.0 Intake & Output: Intake and Output for Last 24 Hours 05/31/25 06/01/25 06/02/25 23:59 23:59 23:59 Intake Total 3000 / 3000 1350 / 1830 480 / 480 Output Total 1750 / 1750 350 / 350 Balance 1250 / 1250 1000 / 1480 480 / 480 Lab / Micro Data 06/02/25 08:20 06/02/25 08:20 Labs: Laboratory Results - last 24 hr 06/01/25 15:56: POC Glucose 136 H 06/02/25 04:04: POC Glucose 197 H 06/02/25 05:54: Sodium Cancelled, Potassium Cancelled, Chloride Cancelled, Carbon Dioxide Cancelled, Anion Gap Cancelled, BUN Cancelled, Creatinine Cancelled, Estim Creat Clear Calc Cancelled, Est GFR (MDRD) Non-Af Cancelled, BUN/Creatinine Ratio Cancelled, Glucose Cancelled, Calcium Cancelled, Troponin T High Sens 64 H* 06/02/25 08:20: WBC 12.1 H, RBC 4.31 L, Hgb 12.1 L, Hct 36.9 L, MCV 85.6, MCH 28.1, MCHC 32.8, RDW Std Deviation 41.8, RDW Coeff of Candace 13.4, Plt Count 187, MPV 11.9, Immature Gran % (Auto) 0.500, Neut % (Auto) 85.2 H, Lymph % (Auto) 7.8 L, [place] % (Auto) 5.0, Eos % (Auto) 0.5, Baso % (Auto) 1.0, Absolute Neuts (auto) 10.3 H, Absolute Lymphs (auto) 0.95, Nucleated RBC % 0, Sodium 135, Potassium 4.6, Chloride 98, Carbon Dioxide 15.4 L, Anion Gap 22 H, BUN 20 H, Creatinine 1.01, Estim Creat Clear Calc 92.16, Est GFR (MDRD) Non-Af 90, BUN/Creatinine Ratio 20.2 H, Glucose 332 H, Calcium 9.8, Troponin T Hi Sens 2 Hr 71 H* 06/02/25 10:17: POC Glucose 397 H 06/02/25 11:10: Troponin T Hi Sens 4Hr 62 H* Radiography Diagnostic Testing: Radiology Impression Echocardiogram 06/02/25 07:44 Interpretation Summary The estimated ejection fraction is 75 %. No evidence for diastolic dysfunction. Trivial mitral valve insufficiency. Ordering Physician: Mónica Miranda Referring Physician: Jah Rey Performed By: Donal Nixon RDCS Physical Exam Const alert, oriented x3 and no apparent distress General Appearance: cooperative HEENT normocephalic, head/scalp atraumatic, hearing grossly normal bilaterally, moist oral mucous membranes and oropharynx normal Eyes EOMs intact bilaterally and conjunctivae normal Neck supple and no JVD Resp normal respiratory effort, normal air movement, no retractions, no use of accessory muscles and clear to auscultation bilaterally Cardio regular rate, regular rhythm, S1 normal heart sound, S2 normal heart sound and no murmurs GI normal to inspection, nondistended, normoactive bowel sounds, soft to palpation, non-tender and non-distended Extremity Extremity Narrative: right BKA Neuro oriented x3, CN's II-XII intact bilaterally and no focal motor deficits Sensorium / Orientation: awake and alert Psych thought process normal, cooperative and affect normal Appearance: appropriate Assessment & Plan Assessment/Plan (1) Abdominal pain: (2) Encounter for screening colonoscopy: PLAN: Plan #Abdominal pain * admitted for prep for screening colonoscopy tomorrow. * Undergoing prep for colonoscopy today. Hemoglobin is 12.1 today. * currently NPO . FOr colonoscopy today. #Chest pain: * Patient started complaining of chest pain early hours of this morning. He was given IV morphine and sublingual nitroglycerin. EKG showed no acute ST changes. Initial troponin done was 62, trended up to 71 and went down to 64. * 2D echo showed EF of 75% with no evidence of diastolic dysfunction and trivial mitral valve insufficiency. No need for further workup. * #Hypertension: on amlodipine and hydralazine. On metoprolol and lisinopril. IV hydralazine prn #Type 2 diabetes mellitus: hold long acting insulin. ISS. Accuchekcs ACHS. A1C is 10.8 #GERD with Evans's esophagus: on pantoprazole. #Depression: on sertraline. DVT prophylaxis: SCDs COde status: full code * Charges/Coding Visit Charges Inpatient E&M: 80385 Subs Hosp L2
--- NOTE | 2025-06-02 15:05 | PCM.PRE.AN2 ---
ASA Classification* ASA Classification ASA Classification: 4 and E Assessment & Plan Anesthesia* Anesthesia Assessment Anesthesia Assessment: Discussed sedation and/or anesthesia options, risks, benefits, and alternatives with patient/parents/legal guardian/POA. Questions invited. The patient/parents/legal guardian/POA seems to understand and agrees to proceed with anesthesia plan. Reviewed the physical assessment, medical history, allergy history and patient home medications list prior to surgery/procedure/anesthetic and documented any changes. Performed airway and anesthesia risk assessments. Anesthesia Type Anesthesia Type: MAC History Source History Obtained from:: Patient and Chart Anesthesia Focused Assessment* Temperature: 98.6 F Pulse Rate: 124 Blood Pressure: 157/74 Respiratory Rate: 20 Pulse Ox: 100 Oxygen Delivery Method: Room Air Airway Assessment Mouth opens: >3 cm Mallampati Score: I Teeth Condition: Missing (Patient is edentulous.) Neck Range of motion (ROM): Limited ROM (Slight Decrease) Labs Anesthesia Preop lab: CBC WBC, (4.4-11.0) 12.1 K/mm3 H Today, 08:20 RBC, (4.6-6.2) 4.31 M/mm3 L Today, 08:20 Hgb, (13.0-16.5) 12.1 g/dL L Today, 08:20 Hct, (40-54) 36.9 % L Today, 08:20 Plt Count, (150-450) 187 K/mm3 Today, 08:20 CHEMISTRY Potassium, (3.3-5.1) 4.6 mmol/L Today, 08:20 Sodium, (133-145) 135 mmol/L Today, 08:20 Magnesium, (1.5-2.2) 1.6 mg/dL 01/19/25, 20:34 Phosphorus, (2.7-4.5) 4.6 mg/dL H 01/18/25, 05:20 BUN, (4-19) 20 mg/dL H Today, 08:20 Creatinine, (0.70-1.20) 1.01 mg/dL Today, 08:20 Glucose, (70-99) 332 mg/dL H Today, 08:20 POC Glucose, (74-106) 368 mg/dL H Today, 14:38 TSH, (0.358-3.74) 1.32 uIU/mL 02/10/24, 15:30 COAG PT, (11.7-14.9) 15.6 SECONDS H 01/18/25, 06:38 Pre-Assessment Diagnosis/Proposed Procedure Planned Operative Procedure(s): cscope, egd Anesthesia History Anesthesia History - manager fashion: Anesthesia History - manager fashion Hx Hospitalization Yes: 12/2024 DIYA 05/31/25 08:34 Any Problems With Anesthesia No 06/02/25 10:23 Cholinesterase deficiency No 06/02/25 10:23 You/Your Family Experience No 06/02/25 10:23 fever (hyperthermia) with Relationship Recent Exposure to Contagious No 06/02/25 10:23 Disease Does patient have nerve No 06/02/25 10:23 stimulator Patient instructed to have device shut off --Does patient have Pacemaker No 06/02/25 13:52 or ICD? When Was Last Pacemaker Check QUESTION #4 FULL TEXT: You/Your Family Experience fever (hyperthermia) with Anesthesia Last Oral Intake Last Oral intake: Last Oral Intake NPO since 00:00 06/02/25 13:52 Meds taken in AM with sips of water? Meds patient instructed to take am of surgery PONV PONV - manager fashion: PONV - manager fashion Female No 05/31/25 08:34 HX of Motion Sickness No 05/31/25 08:34 HX of N/V After Surgery No 05/31/25 08:34 Non-Smoker No 05/31/25 08:34 Duration of Surgery greater No 05/31/25 08:34 than 60 minutes Number of Risk Factors PONV Score Height & Weight Height & Weight: Anesthesia: Height & Weight Height 5 ft 11 in 06/02/25 13:52 Weight: 78.018 kg 06/02/25 13:52 Body Mass Index (BMI) 24.0 06/02/25 13:52 Respiratory Assessment Respiratory Assessment - manager fashion: Respiratory Tract Infection Hx - manager fashion Hx Respiratory Tract Infection No 06/02/25 10:23 STOP Sleep Apnea STOP Sleep Apnea - manager fashion: STOP Sleep Apnea - manager fashion Hx Hypertension No 06/02/25 09:18 Hx Sleep Apnea No 05/31/25 13:33 CPAP No 05/31/25 08:34 BIPAP No 05/31/25 08:34 Do you snore loudly (louder No 05/31/25 13:33 than talking or can be heard Do you often feel tired/ No 05/31/25 13:33 fatigued/ sleepy during daytime? Has anyone observed you stop No 05/31/25 13:33 breathing during sleep? STOP Results Negative 05/31/25 13:33 QUESTION #5 FULL TEXT : Do you snore loudly (louder than talking or can be heard through closed doors)? 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 Specify any problems Hx of Preganancy in last 3 N/A 05/31/25 13:33 Months Nurse Filling Out Transfusion MSTEIN 05/31/25 13:33 & Questions: Date: 05/31/25 05/31/25 13:33 Time: 13:33 05/31/25 13:33 Patient unable to answer at this time (ie. confused, unrespo /Reproduction History /Reproductive History - manager fashion: /Reproductive Hx- manager fashion Hx Now Gestational Age (in weeks): EDC: Hx Hx Para Hx Section SAB No 06/02/25 10:23 Does the father of the baby or his family experience fever w Father of the baby Malignant Hypertension history comment Active Medications Active Medications: Current Medications Generic Name Dose Route Start Last Admin Trade Name Freq PRN Reason Stop Dose Admin Acetaminophen 650 mg 05/31/25 13:41 06/01/25 15:27 Acetaminophen 325 Mg Tablet PO 650 mg Q6H PRN PRN Administration Pain 1-10 Or Fever >100.7 Amitriptyline HCl 25 mg 05/31/25 22:00 06/01/25 21:55 Amitriptyline 25 Mg Tablet PO 25 mg QHS [facility] Administration Amlodipine Besylate 10 mg 06/01/25 10:00 06/02/25 13:55 Amlodipine 10 Mg Tablet PO Not Given DAILY [facility] Protocol Atorvastatin Calcium 40 mg 05/31/25 13:45 06/02/25 13:54 Atorvastatin Calcium 40 Mg Tablet PO Not Given DAILY [facility] Gabapentin 100 mg 05/31/25 13:45 06/02/25 13:54 Gabapentin 100 Mg Capsule PO Not Given DAILY [facility] Glucagon 1 mg 06/02/25 08:21 Glucagon 1 Mg/Ml Syringe IM X1 PRN Hypoglycemia Protocol Hydralazine HCl 50 mg 05/31/25 14:00 06/02/25 13:55 Hydralazine 50 Mg Tablet PO Not Given TID [facility] Protocol Sodium Chloride 250 mls @ 15 mls/hr 05/31/25 13:16 IV .[id number] PRN Saline Flush Sodium Chloride 250 mls @ 15 mls/hr 05/31/25 13:16 IV .[id number] PRN Additional IVPB Infusion Dextrose 250 mls @ 0 mls/hr 06/02/25 08:21 Dextrose 10%-Water IV .Q0M PRN HYPOGLYCEMIA Protocol As Directed Lactated Ringer's 1,000 mls @ 15 mls/hr 06/02/25 14:45 IV .Q48H [facility] Insulin Human Lispro 0 unit 06/02/25 12:00 06/02/25 13:48 Insulin Lispro 100 Unit/Ml Insuln.Pen SC 7 u Q6 [facility] Administration Protocol Insulin Human Regular 0 unit 06/01/25 11:16 Insulin Pump Refill (Pt's Own) 100 Unit/Ml Vial MC UD PRN Insulin Pump Refill Levothyroxine Sodium 25 mcg 06/01/25 06:00 06/02/25 06:51 Levothyroxine 25 Mcg Tablet PO Not Given DAILY@0600 [facility] Lisinopril 40 mg 05/31/25 13:45 06/02/25 13:55 Lisinopril 40 Mg Tablet PO Not Given DAILY [facility] Protocol Metoprolol Succinate 25 mg 06/01/25 10:00 06/02/25 13:55 Metoprolol(Xl)Succ 25 Mg Tablet PO Not Given DAILY [facility] Protocol Ondansetron HCl 4 mg 05/31/25 13:39 06/02/25 04:08 Ondansetron Odt 4 Mg Tablet PO 4 mg Q8H PRN Administration nausea and vomiting Ondansetron HCl 4 mg 06/02/25 04:29 06/02/25 13:44 Ondansetron 4 Mg/2 Ml Vial IV 4 mg Q6H PRN PRN Administration nausea/emesis, 1st line Oxycodone HCl 2.5 - 5 mg 05/31/25 13:41 06/01/25 21:53 Oxycodone 5 Mg Tablet PO 5 mg Q4H PRN PRN Administration Pain Score 4-10 Pantoprazole Sodium 40 mg 05/31/25 22:00 06/02/25 13:55 Pantoprazole Sodium 40 Mg Tablet PO Not Given BID PEPITO Sertraline HCl 50 mg 06/01/25 10:00 06/02/25 13:55 Sertraline 50 Mg Tablet PO Not Given DAILY [facility] Sodium Chloride 10 - 40 ml 05/31/25 13:16 06/02/25 05:41 0.9% Saline Lock 10 Ml Syringe IV 10 ml UD PRN Administration SALINE FLUSH [facility] Medical History History of echocardiogram Tunneled central venous catheter present Acute hypoxic respiratory failure DIYA (acute kidney injury) Nausea and vomiting Transaminitis Leukocytosis Altered mental status Acute renal failure Dehydration Counseling for insulin pump Hyperlipidemia Insulin pump titration Presence of insulin pump Vitamin D insufficiency Hyperkalemia Vitamin D deficiency Overweight Cough 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 Tobacco use disorder Polyneuropathy due to type 1 diabetes mellitus Wound discharge MRSA infection Marijuana use Thyroid disease Insulin dependent diabetes mellitus Arthritis Uses wheelchair Bladder disease Injury of back Difficulty chewing Dietary restriction Amputation of left lower extremity below knee Type 1 diabetes Current use of insulin Back pain due to injury Stroke Restless legs History of stress test Gastroparesis Vision loss of right eye Vision loss of left eye Hearing loss, left Hearing loss, right Anemia Substance abuse Alcohol abuse Anxiety Depression Hypothyroidism Diabetes Chronic pain Rheumatoid arthritis Osteoporosis Pancreatitis GERD (gastroesophageal reflux disease) Hepatitis Smoker Asthma Chest pain Hypertension Migraines Seizures DKA (diabetic ketoacidoses) Charcot foot due to diabetes mellitus Charcot ankle Neuropathy Cellulitis (~09/15/21) Diabetes mellitus Home Medications ?Medication ?Instructions ?Recorded ?Last Taken ?Type sertraline 50 mg tablet (Zoloft) 50 mg PO DAILY depression 03/05/22 06/18/22 History amitriptyline 25 mg tablet 25 mg PO QHS sleep 06/17/22 06/18/22 History blood sugar diagnostic (OneTouch #100 ea 05/02/24 Unknown Rx Verio test strips) blood-glucose meter (OneTouch #1 ea 05/02/24 Unknown Rx Verio Reflect Meter) insulin pump cartridge,automated 01/08/25 Unknown History dose,BT with controller subcutaneous amlodipine 10 mg tablet 10 mg PO DAILY #0 tabs 01/23/25 Unknown Rx hydralazine 50 mg tablet 50 mg PO TID #0 tabs 01/23/25 Unknown Rx metoprolol succinate 25 mg 25 mg PO DAILY #0 tabs 01/23/25 Unknown Rx tablet,extended release 24 hr blood-glucose sensor (FreeStyle #2 ea 01/26/25 Unknown Rx Maikel 2 Plus Sensor device) atorvastatin 40 mg tablet 40 mg PO QDAY 02/08/25 Unknown History lisinopril 40 mg tablet 40 mg PO QDAY 02/08/25 02/22/25 History pantoprazole 40 mg tablet,delayed 40 mg PO BID 02/08/25 02/22/25 History release ondansetron 4 mg disintegrating 4 mg PO Q8H PRN nausea and 02/15/25 Unknown Rx tablet vomiting #30 tabs levothyroxine 25 mcg tablet 25 mcg PO DAILY thyroid #90 tabs 02/17/25 02/22/25 Rx gabapentin 100 mg capsule 100 mg PO QDAY 02/23/25 Unknown History peg 3350-electrolytes 236 240 ml PO Q10M #4,000 mL 02/23/25 Unknown Rx gram-22.74 gram-6.74 gram-5.86 gram solution (Golytely) insulin lispro 100 unit/mL 40 unit (0.4 mL) continuous 03/09/25 Unknown Rx subcutaneous solution (Humalog subcutaneous infusion .continuous U-100 Insulin) #12 mL insulin pump cart,auto,BT,G6/L #15 ea 05/31/25 Unknown Rx (Omnipod 5 (G6/Maikel 2 Plus) subcutaneous cartridge) Allergy/AdvReac Type Severity Reaction Status Date / Time No Known Allergies Allergy Verified 05/31/25 08:32 Family History Other Cancer Diabetes Heart disease Surgical History S/P dialysis catheter insertion History of bilateral cataract extraction H/O tooth extraction History of left below knee amputation Social History Smoking Status: Current every day smoker tobacco type: cigarettes Review of Systems (Anesthesia) ROS Narrative System reviewed and no additional complaints, except as documented.
--- NOTE | 2025-06-02 15:45 | COLBX_PTH ---
PATIENT: TORI CANTOR LOC: [facility] U#:[id number] AGE/SX: 50/M ROOM: [facility] RE06/01/[address]: Dr. Santos Terrazas DO : 1975 BED: 1 DIS: 06/02/2025 SPEC #: [id number] RECD: 06/02/25 18:13 STATUS: MARIIA REQ #: [id number] ANTOINE: 06/02/25 15:[address]: Santos Terrazas DEPT: SURGICAL PATHOLOGY RECD BY: Maximo Mcghee ENTERED: 06/05/25 12:05 SP TYPE: COLON BX OTHR DR: MD Dr. Shen Fernandez MD Dr. Victor Velasquez, MD Heather Evans EVENING ANCHOR-C ERNIE GillespieC AMADEO Arevalo Tissues: A - Duodenum, NOS B - SPLENIC FLEXURE Procedures: Surgery Specimen Level IV HEADER OPERATION: Colonoscopy with polypectomy, clip application, EGD with biopsy PRE-OP DIAGNOSIS: Abdominal pain, encounter for screening colonoscopy, nausea, Evans's esophagus TISSUE SUBMITTED: A- Duodenum biopsy, B- Splenic flexure biopsy MICROSCOPIC DIAGNOSIS A. Small intestine, duodenum, biopsy: * Small bowel mucosa with no pathologic change B. Colon, splenic flexure, biopsy: * Tubular adenoma MICROSCOPIC DESCRIPTION Slides are reviewed. GROSS DESCRIPTION A. Received in fixative is one container labeled with the patient's name and designated Duodenum biopsy. The specimen consists of three irregular fragments of jhaveri tissue that measure <0.1 to 0.4 cm. Smallest fragment may not survive processing. The specimen is totally submitted in one cassette. B. Received in fixative is one container labeled with the patient's name and designated Splenic flexure biopsy. The specimen consists of one irregular fragment of jhaveri tissue that measures 0.4 cm. The specimen is totally submitted in one cassette. ND 06/05/2025 CPT:49613e8
--- NOTE | 2025-06-02 16:02 | PN_ITS ---
Progress Note Patient completed bowel prep. He did have some chest pain this morning. He underwent echocardiogram and cardiac troponins were drawn. We will perform upper and lower scope on him regarding his anemia. Physical Exam Const alert, oriented x3, no apparent distress and healthy appearing General Appearance: cooperative GI normal to inspection, nondistended, normoactive bowel sounds, soft to palpation, non-tender and non-distended Percussion: normal to percussion Rectal Exam: deferred Assessment & Plan Assessment/Plan (1) Abdominal pain: (2) Encounter for screening colonoscopy: (3) Nausea: (4) Evans's esophagus: PLAN: Assessment and Plan Assessment and Plan (1) diarrhea (2) Encounter for screening colonoscopy: Status: Acute Plan: Colonoscopy - GoLytely (3) Abdominal pain: Status: Acute (4) Nausea: Status: Acute Orders: Orders MRCP Abdomen without Contrast Today K22.70 - Evans's esophagus without dysplasia, K83.8 - Other specified diseases of biliary tract Medications: New peg 3350-electrolytes 236-22.74-6.74 -5.86 gram (Golytely) as directed for split dose bowel prep 240 mL PO Q10M 4,000 mL 0RF Plan 49y/o male presents for consultation of abdominal pain. His PMH is significant for HTN, CVA, Hypothyroidism, Asthma, DM (poorly controlled), alcohol abuse, HCV (Tx. Epclusa 2022), Evans's, Gastroparesis, GERD, Seizures, Pancreatitis, Neuropathy, Left BKA. Last seen at [facility] by Destinee Galvan, October 2022 after completion of 12 week course of Epclusa for HCV. Recent admission with acute hypoxic respiratory failure, DKA, DIYA secondary to ischemic ATN in the setting of DKA and hypotension-requiring hemodialysis. He complains of severe abdominal cramping, abdominal pain, nausea with resolving diarrhea. ABD US revealed hepatomegaly and dilated CBD (8mm). I have scheduled him for an MRCP, EGD and colonoscopy. We will obtain recent labs performed by PCP and he will complete [facility] stool tetsing. Patient Instructions: - Visit Charges Inpatient E&M: 60626 [facility] H[facility] L3
[2025-06-02] MEDS: Lactated Ringers 500 ML IV (16:09)
[2025-06-02] MEDS: Lidocaine 1% (5 ml sdv) 5 ML Vial 10 ML IV (16:10)
--- NOTE | 2025-06-02 16:46 | PCM.POST.ANE ---
Anesthesia: Postop Eval I Current Vital Signs Temperature: 98.2 F Pulse Rate: 112 Blood Pressure: 120/68 Respiratory Rate: 18 Pulse Ox: 99 Oxygen Delivery Method: Room Air Assessment Airway patent: Yes Spontaneous unlabored respirations: Yes Mental status: Awake and Calm nausea: No Vomiting: No Anesthesia Complication: No Fluid Hydration Crystalloid volume administer (ml): 500 Total IV fluid infused: 500 Progress Note Anesthesia document: Postop Eval 1 completed: Yes
--- NOTE | 2025-06-02 16:50 | OP.EGD_ITS ---
Patient Name: Orlando Echevarria Procedure Date: 06/02/2025 4:02 PM Date of : 1975 Age: 50 Procedure: Upper GI endoscopy Indications: Iron deficiency anemia Providers: Santos Terrazas DO Referring MD: Jah Rey Medicines: Monitored Anesthesia Care Patient Profile: This is a 50 year old male. Refer to note in patient chart for documentation of history and physical. Patient has symptoms. Complications: No immediate complications. Procedure: Pre-Anesthesia Assessment: - Prior to the procedure, a History and Physical was performed, and patient medications and allergies were reviewed. The patient is competent. The risks and benefits of the procedure and the sedation options and risks were discussed with the patient. All questions were answered and informed consent was obtained. Patient identification and proposed procedure were verified by the physician in the pre-procedure area. Mental Status Examination: alert and oriented. Airway Examination: normal oropharyngeal airway and neck mobility. Respiratory Examination: clear to auscultation. CV Examination: normal. Prophylactic Antibiotics: The patient does not require prophylactic antibiotics. Prior Anticoagulants: The patient has taken no anticoagulant or antiplatelet agents except for NSAID medication. ASA Grade Assessment: II - A patient with mild systemic disease. After reviewing the risks and benefits, the patient was deemed in satisfactory condition to undergo the procedure. The anesthesia plan was to use monitored anesthesia care (MAC). Immediately prior to administration of medications, the patient was re-assessed for adequacy to receive sedatives. The heart rate, respiratory rate, oxygen saturations, blood pressure, adequacy of pulmonary ventilation, and response to care were monitored throughout the procedure. The physical status of the patient was re-assessed after the procedure. After obtaining informed consent, the endoscope was passed under direct vision. Throughout the procedure, the patient's blood pressure, pulse, and oxygen saturations were monitored continuously. The Colonoscope was introduced through the mouth, and advanced to the fourth part of the duodenum. Small bowel enteroscopy was deemed necessary. The upper GI endoscopy was accomplished without difficulty. The patient tolerated the procedure well. Scope In: 4:15:00 PM Scope Out: 4:19:18 PM Total Procedure Duration Time 0 hours 4 minutes 18 seconds Findings: The examined esophagus was normal. Moderate portal hypertensive gastropathy was found in the stomach. Diffuse prominent gastric folds were found in the entire examined stomach. Patchy mildly erythematous mucosa without active bleeding and with no stigmata of bleeding was found in the entire duodenum. Impression: - Normal esophagus. - Portal hypertensive gastropathy. - Enlarged gastric folds. - Erythematous duodenopathy. - No specimens collected. Recommendation: - Discharge patient to home. - Resume previous diet. - Continue present medications. - Await pathology results. Procedure Code(s): --- Professional --- 86651, Small intestinal endoscopy, enteroscopy beyond second portion of duodenum, not including ileum; diagnostic, including collection of specimen(s) by brushing or washing, when performed (separate procedure) CPT copyright 2021 [employer]. All rights reserved. The codes documented in this report are preliminary and upon wheel mill operator review may be revised to meet current compliance requirements. Santos Terrazas DO 06/02/2025 4:50:11 PM This report has been signed electronically. Number of Addenda: 0 Note Initiated On: 06/02/2025 4:02 PM
--- NOTE | 2025-06-02 16:51 | OP.PROVAT_ITS ---
06/02/2025 Jah Rey [address] [place] [address] Re : Upper GI endoscopy procedure for Orlando Echevarria Dear Dr. Rey This procedure was performed on Monday, June 02, 2025. My impressions and recommendations are as follows: Impressions : - Normal esophagus. - Portal hypertensive gastropathy. - Enlarged gastric folds. - Erythematous duodenopathy. - No specimens collected. Recommendations : - Discharge patient to home. - Resume previous diet. - Continue present medications. - Await pathology results. My findings are described in the full procedure note, which is enclosed. If I can be of further assistance, please feel free to contact me at . Sincerely, Santos Terrazas, 06/02/2025 4:50:11 PM This report has been signed electronically.
--- NOTE | 2025-06-02 16:54 | OP.PROVAT_ITS ---
06/02/2025 Jah Rey [address] [place] [address] Re : Colonoscopy procedure for Orlando Echevarria Dear Dr. Rey This procedure was performed on Monday, June 02, 2025. My impressions and recommendations are as follows: Impressions : - Diverticulosis in the recto-sigmoid colon, in the sigmoid colon and in the descending colon. - One 10 mm polyp in the transverse colon, removed with a hot snare. Incomplete resection. Resected tissue not retrieved. Clip was placed. 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 - One 5 mm polyp at the splenic flexure, removed with a Register[employer] cold forceps. Resected and retrieved. Recommendations : - Await pathology results. - Repeat colonoscopy in 3 years for surveillance. - Continue present medications. My findings are described in the full procedure note, which is enclosed. If I can be of further assistance, please feel free to contact me at . Sincerely, Santos Terrazas, 06/02/2025 4:53:50 PM This report has been signed electronically.
--- NOTE | 2025-06-02 16:54 | OP.COLON_ITS ---
Patient Name: Orlando Echevarria Procedure Date: 06/02/2025 4:19 PM Date of : 1975 Age: 50 Procedure: Colonoscopy Indications: Iron deficiency anemia Providers: DO Blessing Terrazas MD: Jah Rey Medicines: Monitored Anesthesia Care Patient Profile: This is a 50 year old male. Refer to note in patient chart for documentation of history and physical. Patient has symptoms. Last Colonoscopy: date unknown. Complications: No immediate complications. Procedure: Pre-Anesthesia Assessment: - Prior to the procedure, a History and Physical was performed, and patient medications and allergies were reviewed. The patient is competent. The risks and benefits of the procedure and the sedation options and risks were discussed with the patient. All questions were answered and informed consent was obtained. Patient identification and proposed procedure were verified by the physician in the pre-procedure area. Mental Status Examination: alert and oriented. Airway Examination: normal oropharyngeal airway and neck mobility. Respiratory Examination: clear to auscultation. CV Examination: normal. Prophylactic Antibiotics: The patient does not require prophylactic antibiotics. Prior Anticoagulants: The patient has taken no anticoagulant or antiplatelet agents except for NSAID medication. ASA Grade Assessment: II - A patient with mild systemic disease. After reviewing the risks and benefits, the patient was deemed in satisfactory condition to undergo the procedure. The anesthesia plan was to use monitored anesthesia care (MAC). Immediately prior to administration of medications, the patient was re-assessed for adequacy to receive sedatives. The heart rate, respiratory rate, oxygen saturations, blood pressure, adequacy of pulmonary ventilation, and response to care were monitored throughout the procedure. The physical status of the patient was re-assessed after the procedure. After I obtained informed consent, the scope was passed under direct vision. Throughout the procedure, the patient's blood pressure, pulse, and oxygen saturations were monitored continuously. The Colonoscope was introduced through the anus and advanced to the cecum, identified by appendiceal orifice and ileocecal valve. The colonoscopy was performed without difficulty. The patient tolerated the procedure well. The quality of the bowel preparation was adequate. The ileocecal valve, appendiceal orifice, and rectum were photographed. Scope In: 4:21:50 PM Scope Withdrawal Time 0 hours 5 minutes 21 seconds Scope Out: 4:37:11 PM Total Procedure Duration Time 0 hours 15 minutes 21 seconds Findings: Multiple small-mouthed diverticula were found in the recto-sigmoid colon, sigmoid colon and descending colon. A 10 mm polyp was found in the transverse colon. The polyp was sessile. The polyp was removed with a hot snare. Polyp resection was incomplete, and the resected tissue was not retrieved. To close a defect after polypectomy, one hemostatic clip was successfully placed. 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 There was no bleeding at the end of the procedure. A 5 mm polyp was found in the splenic flexure. The polyp was sessile. The polyp was removed with a jumbo cold forceps. Resection and retrieval were complete. Impression: - Diverticulosis in the recto-sigmoid colon, in the sigmoid colon and in the descending colon. - One 10 mm polyp in the transverse colon, removed with a hot snare. Incomplete resection. Resected tissue not retrieved. Clip was placed. 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 - One 5 mm polyp at the splenic flexure, removed with a jumbo cold forceps. Resected and retrieved. Recommendation: - Await pathology results. - Repeat colonoscopy in 3 years for surveillance. - Continue present medications. Procedure Code(s): --- Professional --- 89360, Colonoscopy, flexible; with removal of tumor(s), polyp(s), or other lesion(s) by snare technique 46042, 59, Colonoscopy, flexible; with biopsy, single or multiple CPT copyright 2021 [employer]. All rights reserved. The codes documented in this report are preliminary and upon combatant diver qualified review may be revised to meet current compliance requirements. Santos Terrazas DO 06/02/2025 4:53:50 PM This report has been signed electronically. Number of Addenda: 0 Note Initiated On: 06/02/2025 4:19 PM
--- NOTE | 2025-06-02 18:17 | DS.PCM_ITS ---
Providers Date of Admission: 06/02/25 Date of Discharge: 06/03/25 Primary Care Physician: Dr. Jah Rey MD Consultations 05/31/25 13:41 Consult: Gastroenterology Routine Consulting Provider: [facility] Reason for Consult: colonoscopy EMERGENT Consult: No MD Notified: Yes Date Notified: 05/31/25 Time Notified: 13:42 Method of Notification: Text Reason For Visit: colonoscopy Diagnosis Discharge Diagnosis (1) Abdominal pain: Status: Acute Code(s): R10.9 - Unspecified abdominal pain (2) Encounter for screening colonoscopy: Status: Acute Code(s): Z12.11 - Encounter for screening for malignant neoplasm of colon (3) Nausea: Status: Acute Code(s): R11.0 - Nausea (4) Evans's esophagus: Status: Acute Code(s): K22.70 - Evans's esophagus without dysplasia Plan #Abdominal pain * admitted for prep for screening colonoscopy tomorrow. * Undergoing prep for colonoscopy today. Hemoglobin is 12.1 today. * currently NPO . FOr colonoscopy today. #Chest pain: * Patient started complaining of chest pain early hours of this morning. He was given IV morphine and sublingual nitroglycerin. EKG showed no acute ST changes. Initial troponin done was 62, trended up to 71 and went down to 64. * 2D echo showed EF of 75% with no evidence of diastolic dysfunction and trivial mitral valve insufficiency. No need for further workup. * #Hypertension: on amlodipine and hydralazine. On metoprolol and lisinopril. IV hydralazine prn #Type 2 diabetes mellitus: hold long acting insulin. ISS. Accuchekcs ACHS. A1C is 10.8 #GERD with Evans's esophagus: on pantoprazole. #Depression: on sertraline. DVT prophylaxis: SCDs COde status: full code * Medications at Discharge Home Medications sertraline 50 mg tablet (Zoloft) 50 mg PO DAILY depression 03/05/22 amitriptyline 25 mg tablet 25 mg PO QHS sleep 06/17/22 blood sugar diagnostic (Schedule Savvy Verio test strips) #100 ea 05/02/24 blood-glucose meter (Localleruch Verio Reflect Meter) #1 ea 05/02/24 insulin pump cartridge,automated dose,BT with controller subcutaneous 06/22/25 amlodipine 10 mg tablet 10 mg PO DAILY #0 tabs 01/23/25 hydralazine 50 mg tablet 50 mg PO TID #0 tabs 01/23/25 metoprolol succinate 25 mg tablet,extended release 24 hr 25 mg PO DAILY #0 tabs 01/23/25 blood-glucose sensor (FreeStyle Maikel 2 Plus Sensor device) #2 ea 01/26/25 atorvastatin 40 mg tablet 40 mg PO QDAY 02/08/25 lisinopril 40 mg tablet 40 mg PO QDAY 02/08/25 pantoprazole 40 mg tablet,delayed release 40 mg PO BID 02/08/25 ondansetron 4 mg disintegrating tablet 4 mg PO Q8H PRN nausea and vomiting #30 tabs 02/15/25 levothyroxine 25 mcg tablet 25 mcg PO DAILY thyroid #90 tabs 02/17/25 gabapentin 100 mg capsule 100 mg PO QDAY 02/23/25 peg 3350-electrolytes 236 gram-22.74 gram-6.74 gram-5.86 gram solution (Golytely) 240 ml PO Q10M #4,000 mL 02/23/25 insulin lispro 100 unit/mL subcutaneous solution (Humalog U-100 Insulin) 40 unit (0.4 mL) continuous subcutaneous infusion .continuous #12 mL 03/09/25 insulin pump cart,auto,BT,G6/L (Omnipod 5 (G6/Maikel 2 Plus) subcutaneous cartridge) #15 ea 05/31/25 Hospital Course Operations None Procedures Colonoscopy Summary of Care Provided Minutes Spent on Discharge: 45 Hospital Course: TORI CNATOR, is a 50 M with a PMH as outlined who was admitted as a direct admit to the hospitalist service for colonoscopy prep. Patient lives alone at home and has right-sided BKA. He is due for an elective colonoscopy the day after admission but this would be difficult for him to undergo the prep as he lives alone and is not able to get to the toilet quickly. He was therefore brought in to have the colonoscopy prep in the hospital for the colonoscopy. Patient seen and examined. He had no active complaints apart from chronic abdominal pain. He denied any nausea, vomiting, fever or chills. Review of systems is otherwise negative. Vitals at time of review were temperature of 97.5 Fahrenheit, blood pressure 130/78, pulse rate of 91 and respiratory rate of 16. He was saturating at 100% on room air. CBC showed hemoglobin of 12.2 with WBC of 6.5 and platelets of 191. BMP was unremarkable. He was admitted for elective colonoscopy to have prep in the hospital. He had a colonoscopy prep. Hospital course was complicated by mild chest pain and troponins that were mildly elevated. However he had 2D echo which showed that EF was 75% with no regional wall motion abnormalities. He had the EGD and colonoscopy which showed normal esophagus with portal hypertensive gastropathy and enlarged gastric folds with erythematous duodenopathy. No specimens were collected. Patient was discharged on 06/02/2025. Of note patient's heart rate was elevated but was proxy had not taken his metoprolol on the day of discharge. He was therefore to take his metoprolol to help control his heart rate. His work with his primary care doctor with gastroenterology within 1 to 2 weeks. Patient seen and examined prior to discharge. He had no active complaints and had an uneventful night. Review of systems otherwise negative. Labs and vitals reviewed. Medication reviewed and reconciled. Physical Exam Const alert, oriented x3 and no apparent distress General Appearance: cooperative and comfortable HEENT normocephalic, head/scalp atraumatic, hearing grossly normal bilaterally, moist oral mucous membranes and oropharynx normal Mouth: oral and palatal mucosa normal Eyes EOMs intact bilaterally and conjunctivae normal Neck supple and no JVD Resp normal respiratory effort, normal air movement, no retractions, no use of accessory muscles and clear to auscultation bilaterally Cardio regular rate, regular rhythm, S1 normal heart sound, S2 normal heart sound and no murmurs GI normal to inspection, nondistended, normoactive bowel sounds, soft to palpation, non-tender and non-distended Extremity Extremity Narrative: right BKA Neuro oriented x3, CN's II-XII intact bilaterally and no focal motor deficits Sensorium / Orientation: awake and alert Psych thought process normal, cooperative and affect normal Appearance: appropriate Weight / BMI Weight Weight: 172 lb Body Mass Index (BMI) 24.0 ABG / Lab / Microbiology Data 06/02/25 08:20 06/02/25 08:20 Laboratory: Laboratory Results - last 24 hr 06/02/25 16:52: POC Glucose 331 H Radiography Diagnostic Testing: Radiology Impression Echocardiogram 06/02/25 07:44 Interpretation Summary The estimated ejection fraction is 75 %. No evidence for diastolic dysfunction. Trivial mitral valve insufficiency. Ordering Physician: Mónica Miranda Referring Physician: Jah Rey Performed By: Donal Nixon RDCS D/C Instructions Discharge Activity: Return to Normal Activity Weight Bearing Status: Weight bearing as tolerated DC O2, CPAP, BIPAP Needs Home O2 Discharge instructions: No Meaningful Use Info Meaningful Use Meaningful Use Diagnoses (Choose all that apply): None applicable Discharge Plan Admission Admit Date/Time: 06/02/25 14:17 Primary Reason for Your Visit: elective colonoscopy Attending Provider: Santos Terrazas Primary Care Provider: Jah Rey Consulting Providers: Shen Reaz; Santos Terrazas; Genoveva Torrez; Emelia Hamilton; Kirsty Holliday Instructions Additional Instructions / Restrictions: continue home meds Discharge Orders/Prescriptions Prescriptions: Continued sertraline [Zoloft] 50 mg tablet 50 mg PO DAILY (DME) blood-glucose meter [OneTouch Verio Reflect Meter] Misc See Rx Instructions .Route Qty: 1 0RF Rx Instructions: As directed (DME) OneTouch Verio test strips Strip See Rx Instructions .Route Qty: 100 5RF Rx Instructions: TID atorvastatin 40 mg tablet 40 mg PO QDAY pantoprazole 40 mg tablet,delayed release (DR/EC) 40 mg PO BID lisinopril 40 mg tablet 40 mg PO QDAY gabapentin 100 mg capsule 100 mg PO QDAY peg 3350-electrolytes [Golytely] 236-22.74-6.74 -5.86 gram recon soln 240 ml PO Q10M Qty: 4000 0RF Rx Instructions: as directed for split dose bowel prep amitriptyline 25 mg Tablet 25 mg PO QHS (DME) insulin pump cart,auto,BT-cntr Cartridge See Rx Instructions .Route Rx Instructions: As directed amlodipine 10 mg Tablet 10 mg PO DAILY Qty: 0 0RF hydralazine 50 mg Tablet 50 mg PO TID Qty: 0 0RF metoprolol succinate 25 mg Tablet Extended Release 24 Hr 25 mg PO DAILY Qty: 0 0RF (DME) FreeStyle Maikel 2 Plus Sensor Device See Rx Instructions .Route Qty: 2 5RF Rx Instructions: 1 sensors q 15 days ondansetron 4 mg tablet,disintegrating 4 mg PO Q8H PRN (Reason: nausea and vomiting) Qty: 30 2RF levothyroxine 25 mcg tablet 25 mcg PO DAILY Qty: 90 1RF insulin lispro [Humalog U-100 Insulin] 100 unit/mL solution 40 unit continuous subcutaneous infusion .continuous Qty: 12 5RF (DME) Omnipod 5 (G6/Maikel 2 Plus) Cartridge See Rx Instructions .Route Qty: 15 3RF Rx Instructions: 1 pod q 2 days Referrals / Follow Up: Santos Terrazas DO [Med Staff - Active Staff, Gastroenterology] - Within 1 Week Jah Rey MD [Primary Care Provider, Internal Medicine] - Within 1 Week Disposition Disposition (needs filled in before D/C Order can be placed): Home, Self Care Charges/Coding Visit Charges Inpatient E&M: 31438 Disch Hosp >30min
--- NOTE | 2025-06-02 18:51 | NURSING ---
pt informed to take metoprolol upon arriving home as hr was elevated and pt did not have med yet today. pt voices understanding.
--- NOTE | 2025-06-03 01:27 | POSTOPAN2_ITS ---
Anesthesia Postop Eval I Sum Postop Eval Completion status Anesthesia document: Postop Eval 1 completed: Yes Anesthesia Postop Eval I Summary Anesthesia Postop Eval I Summary: Anesthesia Postop Eval I: Assessment Summary Airway patent Yes 06/02/25 16:47 MOTION PICTURE ACTOR.[email or web address] Spontaneous unlabored Yes 06/02/25 16:47 MOTION PICTURE ACTOR.RAJI respirations Mental status Awake,Calm 06/02/25 16:47 MOTION PICTURE ACTOR.YUNIELOBY nausea No 06/02/25 16:47 MOTION PICTURE ACTOR.YUNIELOBY Vomiting No 06/02/25 16:47 MOTION PICTURE ACTOR.YUNIELOBNitesh Anesthesia Postop Eval I: Fluid Summary Crystalloid volume administer 500 06/02/25 16:47 MOTION PICTURE ACTOR.SKOBY (ml) Colloids volume administered ( ml) Blood Product volume administered (ml) Total IV fluid infused 500 06/02/25 16:47 MOTION PICTURE ACTOR.YUNIELOBNitesh Anesthesia Postop Eval I: Summary Notes Anesthesia Complication No 06/02/25 16:47 MOTION PICTURE ACTOR.RAJI Anesthesia Complication Comment: Post-operative progress note Anesthesia: Postop Eval II Evaluation Mental status: Awake and Calm Pain Level: 0 nausea: No Vomiting: No Complications Anesthesia Complication: No
--- NOTE | 2025-06-03 01:27 | PCM.POSTANE2 ---
Anesthesia Postop Eval I Sum Postop Eval Completion status Anesthesia document: Postop Eval 1 completed: Yes Anesthesia Postop Eval I Summary Anesthesia Postop Eval I Summary: Anesthesia Postop Eval I: Assessment Summary Airway patent Yes 06/02/25 16:47 TEAM ASSISTANT.[email or web address] Spontaneous unlabored Yes 06/02/25 16:47 TEAM ASSISTANT.RAJI respirations Mental status Awake,Calm 06/02/25 16:47 TEAM ASSISTANT.YUNIELOBY nausea No 06/02/25 16:47 TEAM ASSISTANT.YUNIELOBY Vomiting No 06/02/25 16:47 TEAM ASSISTANT.YUNIELOBNitesh Anesthesia Postop Eval I: Fluid Summary Crystalloid volume administer 500 06/02/25 16:47 TEAM ASSISTANT.[email or web address] (ml) Colloids volume administered ( ml) Blood Product volume administered (ml) Total IV fluid infused 500 06/02/25 16:47 TEAM ASSISTANT.YUNIELOBNitesh Anesthesia Postop Eval I: Summary Notes Anesthesia Complication No 06/02/25 16:47 TEAM ASSISTANT.RAJI Anesthesia Complication Comment: Post-operative progress note Anesthesia: Postop Eval II Evaluation Mental status: Awake and Calm Pain Level: 0 nausea: No Vomiting: No Complications Anesthesia Complication: No
== END 2025-06-02 18:17 | disposition home or self-care (01) ==
PROVIDERS: Anesthesiology; Family Medicine; Admitting Provider Student in an Organized Health Care Education/Training Program; PCP Internal Medicine; Referring Provider Internal Medicine; Visit Provider Internal Medicine Gastroenterology
PROC: 0DJD8ZZ Inspection of Lower Intestinal Tract, Via Natural or Artificial Opening Endoscopic (ICD-10-PCS; CPT 45378; principal; 2025-06-02 15:40)
DX: D12.3 Benign neoplasm of transverse colon (principal); K76.6 Portal hypertension; Z89.511 Acquired absence of right leg below knee; E10.42 Type 1 diabetes mellitus with diabetic polyneuropathy; Z79.4 Long term (current) use of insulin; Z12.11 Encounter for screening for malignant neoplasm of colon; D50.9 Iron deficiency anemia, unspecified; E78.5 Hyperlipidemia, unspecified; F17.210 Nicotine dependence, cigarettes, uncomplicated; F32.A Depression, unspecified; K31.89 Other diseases of stomach and duodenum; K57.30 Diverticulosis of large intestine without perforation or abscess without bleeding; K22.70 Barrett's esophagus without dysplasia; K21.9 Gastro-esophageal reflux disease without esophagitis; R07.9 Chest pain, unspecified; Z96.41 Presence of insulin pump (external) (internal); Z79.890 Hormone replacement therapy; Z79.899 Other long term (current) drug therapy; Z86.73 Personal history of transient ischemic attack (TIA), and cerebral infarction without residual deficits; I10 Essential (primary) hypertension; E03.9 Hypothyroidism, unspecified; R94.31 Abnormal electrocardiogram [ECG] [EKG]
CPT/HCPCS: 45380; 44360; 45385; 36415; 80048; 80076; 82962; 83036; 84484; 85025; 85027; 88305; 93005; 93308; 96361; 96374; 96375; 96376; 99221; 99406; A4216; G0378; J2405